=== PATIENT | female | born 1955 | race African-American/Black ===

== ENCOUNTER 2016-12-17 18:46 | Inpatient (IN) | payer MEDICARE, OTHER ==
[~2016-12-17] VITALS: Ht 175.3 cm; Wt 140.6 kg
[~2016-12-17 18:46] MED LIST: ACETAMINOPHEN-1 EAC2 ORAL; ACETAMINOPHEN325 M1 ORAL; ALBUTEROL2.5 MG/3 M INH; AMARYL4 MG ORAL; AMLODIPINE BESY10 MG ORAL; AMOXICILLIN500 MG ORAL; APRESOLINE10 MG ORAL; ASCORBIC ACID500 M4 ORAL; ASCORBIC ACID500 MG ORAL; ASPIRIN EC81 MG ORAL; ATORVASTATIN CA20 MG ORAL; BACTROBAN NASAL1 GM NASAL; CALCIUM ACETAT667 M1 PO; CATAPRES0.1 MG ORAL; DIALYVITE 8000.8 M1 PO; DIPHENHYDRAMINE25 M1 ORAL; DOK100 M1 PO; FERROUS SULFAT325 MG ORAL; FISH OIL CAP1000 MG ORAL; FLEET ENEMA133 ML RECTAL; FUROSEMIDE40 MG ORAL; GLIMEPIRIDE4 MG ORAL; HEPARIN SO5000 UNIT2 SUBQ; HYDRALAZINE HC100 MG ORAL; HYDRALAZINE HCL50 MG ORAL; IMDUR30 MG ORAL; IRON325 M2 PO; ISOSORBIDE DINIT5 MG ORAL; LACTULOSE20 GM/301 ORAL; LASIX20 M1 ORAL; LEVAQUIN250 M1 ORAL; LEVEMIR FL100 UNIT/1 SUBQ; LEVEMIR100 UNITS/ SUBQ; LISINOPRIL10 MG ORAL; LOPRESSOR25 M1 ORAL; LOSARTAN POTASS50 MG ORAL; METOLAZONE5 MG PO; METOPROLOL TART50 MG ORAL; MIRALAX17 G2 ORAL; MORPHINE 22 MG/1 ML IV; MYLANTA II30 ML PO; NITROSTAT0.4 M1 SL; NORCO 5-325 TA1 EACH ORAL; NOVOLIN R100 UNIT/1 SUBQ; NOVOLOG100 UNITS1 SUBQ; PANTOPRAZOLE SO40 MG ORAL; POTASSIUM CHLO20 ME3 PO; PROMETHAZINE-C118 M1 ORAL; RANITIDINE50 MG/2 ML IV; RENVELA800 MG ORAL; RESTORIL15 MG ORAL; TRAMADOL HCL50 MG ORAL; TYLENOL325 MG ORAL; TYLENOL650 MG/20. ORAL; ZOFRAN4 M1 ORAL; ZYLOPRIM100 MG ORAL; [UNRECOGNIZED DRUG - OTHER]
[2016-12-17 19:28] VITALS: BP 167/80
[2016-12-17] MEDS ORDERED: Morphine Sulfate 4mg/ml Inj IVP ONE (19:45)
[2016-12-17 19:58] LABS: APPEARANCE,URINE CLOUDY; KETONES,URINE NEGATIVE (NEGATIVE); LEUKOCYTE ESTERASE ,URINE 1+ (NEGATIVE); NITRITE,URINE NEGATIVE (NEGATIVE); PH,URINE 5 (4.5-8.0); PROTEIN,URINE 4+ (NEGATIVE); UROBILINOGEN,URINE NORMAL MG/DL (0.0-1.0)
[2016-12-17 20:20] LABS: SQUAMOUS EPITHELIAL CELL,UR MODERATE /LPF (NONE/OCC)
[2016-12-17 20:21] LABS: AMORPHOUS SEDIMENT,UR MANY /LPF; BACTERIA,URINE MODERATE /HPF; ICTOTEST NEGATIVE
[2016-12-17 20:54] VITALS: BP 152/60
[2016-12-17 20:59] LABS: BASOPHILS % (AUTO) 2.3 % (0.0-2.0); LYMPHOCYTES % (AUTO) 19.5 % (20.0-45.0); MEAN CORPUSCULAR HEMOGLOBIN 23.9 PG (27.0-31.0); MEAN CORPUSCULAR HGB CONC 28.8 G/DL (32.0-36.0); MEAN CORPUSCULAR VOLUME 83 FL (80-99); MEAN PLATELET VOLUME 6.3 FL (6.5-10.1); MONOCYTES % (AUTO) 12.7 % (1.0-10.0); NEUTROPHILS % (AUTO) 49.5 % (45.0-75.0); PLATELET COUNT 334 K/UL (150-450); RED BLOOD COUNT 4.74 M/UL (4.20-5.40); RED CELL DISTRIBUTION WIDTH 20.5 % (11.6-14.8); WHITE BLOOD COUNT 8.5 K/UL (4.8-10.8)
[2016-12-17 21:08] LABS: ALBUMIN/GLOBULIN RATIO 1.4 (1.0-2.7); CALCIUM 9.2 mg/dL (8.6-10.2); CREATININE 6.3 mg/dL (0.5-0.9); GLOMERULAR FILTRATION RATE 8.2 mL/min (>60); POTASSIUM 5.4 mEQ/L (3.4-4.9); TOTAL PROTEIN 7.3 g/dL (6.6-8.7); TROPONIN I < 0.30 ng/mL (<=0.30)
[2016-12-17 21:18] LABS: CKMB 2.5 ng/mL (< 3.8)
[2016-12-17] MEDS ORDERED: cefTRIAXone 1 GM in NS 55 ML IVPB ONE (21:30)
--- NOTE | 2016-12-17 22:22 | Emergency Room Report ---
History of Present Illness General Chief Complaint: Abdominal Pain Source: Patient, Medical Record Present Illness HPI 61-year-old female presents to ED for evaluation of abdominal pain. States symptoms started today. Notes suprapubic pain, 9/10 nonradiating. No aggravating or relieving factors. She states she has some dysuria. She has a bladder infection. Denies fevers or chills. Denies nausea or vomiting. Denies flank pain. Notes history of dialysis, gets dialysis on Sunday and Sunday. Denies chest pain or shortness of breath Allergies: Coded Allergies: NO KNOWN ALLERGIES (Unverified Allergy, Unknown, 10/15/15) Patient History Past Medical History: HTN, asthma, COPD, renal disease, dialysis Past Surgical History: none Pertinent Family History: none Social History: Denies: alcohol use, drug use, smoking Now: No Immunizations: UTD Reviewed Nursing Documentation: PMH: Agreed, PSxH: Agreed Nursing Documentation-PMH Past Medical History: No History, Except For Hx Hypertension: Yes Hx Asthma: Yes Hx COPD: Yes Hx Diabetes: Yes Hx Cancer: No Hx Gastrointestinal Problems: No Hx Dialysis: Yes - T TH Sat shunt on RUE Hx Neurological Problems: No Hx Peripheral Neuropathy: Yes - secondary to DM Hx Tremors: Yes Hx Vertigo: Yes Hx Dizziness: Yes Hx Syncope: Yes Hx Headaches: Yes Hx Weakness: Yes Hx Fatigue: Yes Review of Systems All Other Systems: negative except mentioned in HPI Physical Exam Vital Signs Date Time Temp Pulse Resp B/P Pulse Ox O2 Delivery O2 Flow Rate FiO2 12/17/16 19:06 97.3 64 20 178/79 100 Room Air Sp02 EP Interpretation: reviewed, normal General Appearance: no apparent distress, alert, GCS 15, non-toxic Head: normocephalic, atraumatic Eyes: bilateral eye PERRL, bilateral eye normal inspection ENT: hearing grossly normal, normal pharynx, no angioedema, normal voice Neck: full range of motion, supple/symm/no masses Respiratory: chest non-tender, lungs clear, normal breath sounds, speaking full sentences Cardiovascular #1: regular rate, rhythm, no edema Cardiovascular #2: 2+ carotid (R), 2+ carotid (L), 2+ radial (R), 2+ radial (L) , 2+ dorsalis pedis (R), 2+ dorsalis pedis (L) Gastrointestinal: normal bowel sounds, soft, non-distended, no guarding, no rebound, tenderness - suprapubic Rectal: deferred Genitourinary: normal inspection, no CVA tenderness Musculoskeletal: back normal, gait/station normal, normal range of motion, non- tender Neurologic: alert, oriented x3, responsive, motor strength/tone normal, sensory intact, speech normal Psychiatric: judgement/insight normal, memory normal, mood/affect normal, no suicidal/homicidal ideation Reflexes: 3+ bicep (R), 3+ bicep (L), 3+ tricep (R), 3+ tricep (L), 3+ knee (R) , 3+ knee (L) Skin: normal color, no rash, warm/dry, well hydrated Lymphatic: no adenopathy Medical Decision Making Diagnostic Impression: Primary Impression: Hyperkalemia Additional Impressions: ESRD (end stage renal disease) on dialysis UTI (urinary tract infection) Qualified Codes: N39.0 - Urinary tract infection, site not specified Uncontrolled diabetes mellitus Qualified Codes: E13.65 - Other specified diabetes mellitus with hyperglycemia ER Course Hospital Course 61-year-old female presents ED with suprapubic pain, history of UTI. History of end-stage renal disease Differential diagnoses include: Hyperkalemia, UTI, sepsis, dehydration Clinical course Patient placed on stretcher. 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 After initial history and physical, I ordered labs, EKG, UA. Labs - BUN/Cr elevated, potassium elevated, no leukocytosis, glucose greater than 300, UA grossly positive for UTI EKG - no ischemic changes Insulin given. kayexelate given Abx given. Case discussed with Dr Lan and they agreed to admit patient to their service for further care and support I feel this is a highly complex case requiring extensive working including EKG/ Rhythm strip, Xray/CT/US, Blood/urine lab work, repeat exams while in ED, and administration of strong opiates/narcotics for pain control, admission to hospital or close patient follow up. Diagnosis - hyperkalemia, ESRD on dialysis, UTI, uncontrolled DM Patient admitted to floor in serious condition Labs Test 12/17/16 19:25 12/17/16 20:30 Urine Color Margarita Urine Appearance Cloudy Urine pH 5 (4.5-8.0) Urine Specific [place] 1.015 (1.005-1.035) Urine Protein 4+ (NEGATIVE) Urine Glucose (UA) 2+ (NEGATIVE) Urine Ketones Negative (NEGATIVE) Urine Occult Blood 2+ (NEGATIVE) Urine Nitrite Negative (NEGATIVE) Urine Bilirubin Negative (NEGATIVE) Urine Ictotest Negative Urine Urobilinogen Normal MG/DL (0.0-1.0) Urine Leukocyte Esterase 1+ (NEGATIVE) Urine RBC 10-15 /HPF (0 - 2) Urine WBC 5-10 /HPF (0 - 2) Urine Squamous Epithelial Cells Moderate /LPF (NONE/OCC) Urine Amorphous Sediment Many /LPF (NONE) Urine Bacteria Moderate /HPF (NONE) White Blood Count 8.5 K/UL (4.8-10.8) Red Blood Count 4.74 M/UL (4.20-5.40) Hemoglobin 11.3 G/DL (12.0-16.0) Hematocrit 39.4 % (37.0-47.0) Mean Corpuscular Volume 83 FL (80-99) Mean Corpuscular Hemoglobin 23.9 PG (27.0-31.0) Mean Corpuscular Hemoglobin Concent 28.8 G/DL (32.0-36.0) Red Cell Distribution Width 20.5 % (11.6-14.8) Platelet Count 334 K/UL (150-450) Mean Platelet Volume 6.3 FL (6.5-10.1) Neutrophils (%) (Auto) 49.5 % (45.0-75.0) Lymphocytes (%) (Auto) 19.5 % (20.0-45.0) Monocytes (%) (Auto) 12.7 % (1.0-10.0) Eosinophils (%) (Auto) 16.0 % (0.0-3.0) Basophils (%) (Auto) 2.3 % (0.0-2.0) Sodium Level 132 mEQ/L (135-145) Potassium Level 5.4 mEQ/L (3.4-4.9) Chloride Level 93 mEQ/L (98-107) Carbon Dioxide Level 22 mEQ/L (20-30) Anion Gap 17 (5-15) Blood Urea Nitrogen 27 mg/dL (7-23) Creatinine 6.3 mg/dL (0.5-0.9) Estimat Glomerular Filtration Rate 8.2 mL/min (>60) Glucose Level 330 mg/dL (74-106) Calcium Level 9.2 mg/dL (8.6-10.2) Total Bilirubin 0.4 mg/dL (0.0-1.2) Aspartate Amino Transf (AST/SGOT) 11 U/L (5-40) Alanine Aminotransferase (ALT/SGPT) 10 U/L (3-33) Alkaline Phosphatase 72 U/L (35-104) Total Creatine Kinase 61 U/L (26-140) Creatine Kinase MB 2.5 ng/mL (< 3.8) Creatine Kinase MB Relative Index 4.0 Troponin I < 0.30 ng/mL (<=0.30) Pro-B-Type Natriuretic Peptide 5602 pg/mL (0-125) Total Protein 7.3 g/dL (6.6-8.7) Albumin 4.3 g/dL (3.5-5.2) Globulin 3.0 g/dL Albumin/Globulin Ratio 1.4 (1.0-2.7) EKG Diagnostic Results Rate: bradycardiac Rhythm: NSR ST Segments: no acute changes ASA given to the pt in ED: No Rhythm Strip Diag. Results EP Interpretation: yes Rhythm: no PVC's, no ectopy Last Vital Signs Date Time Temp Pulse Resp B/P Pulse Ox O2 Delivery O2 Flow Rate FiO2 12/17/16 20:54 97.2 63 18 152/60 100 Room Air Status: improved Disposition: ADMITTED INPATIENT Condition: Serious Referrals: BRIE LAN (PCP) MICA ZAMORA M.D. Dec 17, 2016 22:22
[2016-12-17] MEDS ORDERED: Sodium Polystyrene Sulfonate 15gm Powder ORAL ONE (22:30)
[2016-12-18] VITALS (7 sets, daily range): BP systolic 100–168; BP diastolic 57–85
[2016-12-18] MEDS ORDERED: Morphine Sulfate 2mg/ml Inj IVP PRN (01:00)
[2016-12-18] MEDS ORDERED: Zolpidem 5mg tab ORAL PRN (01:00)
[2016-12-18] MEDS ORDERED: Mylanta II UD 30ml ORAL PRN (01:00)
[2016-12-18] MEDS ORDERED: DuoNeb 0.5-3(2.5)mg/3ml neb HHN PRN (01:00)
[2016-12-18] MEDS: NovoLOG Insulin Flexpen SUBQ SCH ×4 (07:06→21:35)
[2016-12-18] MEDS: Metoprolol 50mg tab ORAL SCH ×2 (08:37→21:00)
[2016-12-18] MEDS: Allopurinol 100mg Tab ORAL SCH (08:37)
[2016-12-18] MEDS: HydrALAZINE 10mg Tab ORAL SCH ×4 (08:37→21:34)
--- NOTE | 2016-12-18 08:38 | Infectious Diseases Prog Note ---
Assessment/Plan Problems: (1) UTI (urinary tract infection) Assessment & Plan: send urine culture and continue levofloxacin (2) Diabetes Assessment & Plan: recommend tight glycemic controle to keep blood glucose between 80-120 (3) Hypertension Assessment & Plan: continue meds to keep SBP<140 (4) CHF (congestive heart failure) Assessment & Plan: on HD , renal is following (5) ESRD (end stage renal disease) on dialysis Assessment & Plan: management as per renal , continue HD (6) Vaginal yeast infection Assessment & Plan: will treat with a single dose of fluconazol 150 mg po x1 Subjective Allergies: Coded Allergies: NO KNOWN ALLERGIES (Unverified Allergy, Unknown, 10/15/15) Objective Vital Signs Last 24 Hour Vital Signs Date Time Temp Pulse Resp B/P Pulse Ox O2 Delivery O2 Flow Rate FiO2 12/18/16 03:30 97.5 61 19 168/82 99 Room Air 12/18/16 02:50 97.2 88 16 154/72 97 Room Air 12/18/16 02:25 97.2 88 16 154/72 97 Room Air 12/18/16 00:09 97.2 16 163/70 100 Room Air 12/17/16 23:49 163/70 12/17/16 21:15 97.2 12/17/16 20:54 97.2 63 18 152/60 100 Room Air 12/17/16 19:28 97.3 62 18 167/80 100 Room Air 12/17/16 19:06 97.3 64 20 178/79 100 Room Air Height (Feet): 5 Height (Inches): 9.00 Weight (Pounds): 310 Laboratory Tests Test 12/17/16 19:25 12/17/16 20:30 Urine Color Margarita Urine Appearance Cloudy Urine pH 5 (4.5-8.0) Urine Specific [place] 1.015 (1.005-1.035) Urine Protein 4+ (NEGATIVE) H Urine Glucose (UA) 2+ (NEGATIVE) H Urine Ketones Negative (NEGATIVE) Urine Occult Blood 2+ (NEGATIVE) H Urine Nitrite Negative (NEGATIVE) Urine Bilirubin Negative (NEGATIVE) Urine Ictotest Negative Urine Urobilinogen Normal MG/DL (0.0-1.0) Urine Leukocyte Esterase 1+ (NEGATIVE) H Urine RBC 10-15 /HPF (0 - 2) H Urine WBC 5-10 /HPF (0 - 2) H Urine Squamous Epithelial Cells Moderate /LPF (NONE/OCC) H Urine Amorphous Sediment Many /LPF (NONE) H Urine Bacteria Moderate /HPF (NONE) H White Blood Count 8.5 K/UL (4.8-10.8) Red Blood Count 4.74 M/UL (4.20-5.40) Hemoglobin 11.3 G/DL (12.0-16.0) L Hematocrit 39.4 % (37.0-47.0) Mean Corpuscular Volume 83 FL (80-99) Mean Corpuscular Hemoglobin 23.9 PG (27.0-31.0) L Mean Corpuscular Hemoglobin Concent 28.8 G/DL (32.0-36.0) L Red Cell Distribution Width 20.5 % (11.6-14.8) H Platelet Count 334 K/UL (150-450) Mean Platelet Volume 6.3 FL (6.5-10.1) L Neutrophils (%) (Auto) 49.5 % (45.0-75.0) Lymphocytes (%) (Auto) 19.5 % (20.0-45.0) L Monocytes (%) (Auto) 12.7 % (1.0-10.0) H Eosinophils (%) (Auto) 16.0 % (0.0-3.0) H Basophils (%) (Auto) 2.3 % (0.0-2.0) H Sodium Level 132 mEQ/L (135-145) L Potassium Level 5.4 mEQ/L (3.4-4.9) H Chloride Level 93 mEQ/L (98-107) L Carbon Dioxide Level 22 mEQ/L (20-30) Anion Gap 17 (5-15) H Blood Urea Nitrogen 27 mg/dL (7-23) H Creatinine 6.3 mg/dL (0.5-0.9) H Estimat Glomerular Filtration Rate 8.2 mL/min (>60) Glucose Level 330 mg/dL (74-106) H Calcium Level 9.2 mg/dL (8.6-10.2) Total Bilirubin 0.4 mg/dL (0.0-1.2) Aspartate Amino Transf (AST/SGOT) 11 U/L (5-40) Alanine Aminotransferase (ALT/SGPT) 10 U/L (3-33) Alkaline Phosphatase 72 U/L (35-104) Total Creatine Kinase 61 U/L (26-140) Creatine Kinase MB 2.5 ng/mL (< 3.8) Creatine Kinase MB Relative Index 4.0 Troponin I < 0.30 ng/mL (<=0.30) Pro-B-Type Natriuretic Peptide 5602 pg/mL (0-125) H Total Protein 7.3 g/dL (6.6-8.7) Albumin 4.3 g/dL (3.5-5.2) Globulin 3.0 g/dL Albumin/Globulin Ratio 1.4 (1.0-2.7) Current Medications Medications (Trade) Dose Ordered Sig/Josi Route PRN Reason Start Time Stop Time Status Last Admin Dose Admin Acetaminophen (Tylenol) 650 mg Q4H PRN ORAL fever 12/18/16 01:00 01/17/17 00:59 Al Hydroxide/Mg Hydroxide (Mylanta II) 30 ml Q6H PRN ORAL dyspepsia 12/18/16 01:00 01/17/17 00:59 Albuterol/ Ipratropium 3 ml 3 ml Q6HRT PRN HHN dyspnea 12/18/16 01:00 12/23/16 00:59 Allopurinol (Zyloprim) 100 mg DAILY ORAL 12/18/16 09:00 01/17/17 08:59 Amlodipine Besylate (Norvasc) 10 mg DAILY ORAL 12/18/16 09:00 01/17/17 08:59 Atorvastatin Calcium (Lipitor) 20 mg BEDTIME ORAL 12/18/16 21:00 01/17/17 20:59 Calcium Acetate (Phoslo) 667 mg TID ORAL 12/18/16 09:00 01/17/17 08:59 Clonidine HCl (Catapres) 0.1 mg EVERY 8 HOURS ORAL 12/18/16 09:00 01/17/17 08:59 Clonidine HCl (Catapres) 0.1 mg Q4H PRN ORAL For High Blood Pressure 12/18/16 01:00 01/17/17 00:59 Dextrose (Dextrose 50%) STAT PRN IV Hypoglycemia 12/18/16 01:00 01/17/17 00:59 Furosemide (Lasix) 100 mg EVERY 8 HOURS PRN IV dyspnea 12/18/16 01:00 01/17/17 00:59 Heparin Sodium (Porcine) (Heparin 5000 units/ml) 5,000 units EVERY 12 HOURS SUBQ 12/18/16 09:00 01/17/17 08:59 Hydralazine HCl (Apresoline) 10 mg EVERY 6 HOURS ORAL 12/18/16 08:00 01/17/17 07:59 Insulin Aspart (NovoLOG) BEFORE MEALS AND HS SUBQ 12/18/16 06:30 01/17/17 06:29 12/18/16 07:06 Levofloxacin (Levaquin) 50 ml @ 50 mls/hr Q48H IVPB 12/20/16 02:30 12/27/16 02:29 Metoprolol Tartrate (Lopressor) 50 mg Q12HR ORAL 12/18/16 09:00 01/17/17 08:59 Morphine Sulfate (Morphine Sulfate) 1 mg Q4H PRN IVP Moderate Pain (Pain Scale 4-6) 12/18/16 01:00 12/25/16 00:59 Morphine Sulfate (Morphine Sulfate) 2 mg Q4H PRN IV Severe Breakthru Pain (>7) 12/18/16 01:00 12/25/16 00:59 Ondansetron HCl (Zofran) 4 mg Q6H PRN IVP Nausea & Vomiting 12/18/16 01:00 01/17/17 00:59 Polyethylene Glycol (Miralax) 17 gm HSPRN PRN ORAL Constipation 12/18/16 01:00 01/17/17 00:59 Sevelamer Carbonate (Renvela) 800 mg THREE TIMES A DAY ORAL 12/18/16 09:00 01/17/17 08:59 Zolpidem Tartrate (Ambien) 5 mg HSPRN PRN ORAL Insomnia 12/18/16 01:00 01/17/17 00:59 Rudy Pendleton M.D. Dec 18, 2016 08:38
[2016-12-18] MEDS: Heparin 5000 units/ml inj SUBQ SCH ×2 (08:45→21:35)
[2016-12-18] MEDS: Calcium Acetate 667mg Tab ORAL SCH ×3 (08:51→17:35)
--- NOTE | 2016-12-18 15:18 | Nephrology Progress Note ---
Assessment/Plan Problem List: (1) Headache (2) Hyponatremia (3) Chest pain (4) CHF (congestive heart failure) (5) Hypertension (6) Morbid obesity (7) Blindness (8) Uncontrolled diabetes mellitus (9) End stage renal disease on dialysis (10) UTI (urinary tract infection) Plan Consult dictated - [id number] Subjective Constitutional: Denies: chills, diaphoresis, fever, malaise, no symptoms, other , weakness HEENT: Denies: blurred vision, double vision, ear discharge, ear pain, eye pain , mouth pain, mouth swelling, no symptoms, nose congestion, nose pain, other, tearing, throat pain, throat swelling Genitourinary: Reports: pain Neurologic/Psychiatric: Reports: weakness Subjective In bed, c/o gen itching Objective Objective Last 24 Hour Vital Signs Date Time Temp Pulse Resp B/P Pulse Ox O2 Delivery O2 Flow Rate FiO2 12/18/16 12:41 97.0 12/18/16 12:07 168/82 12/18/16 12:00 97.2 56 20 153/73 100 Room Air 12/18/16 08:37 61 168/82 12/18/16 08:37 168/82 12/18/16 08:37 168/82 12/18/16 08:37 61 168/82 12/18/16 08:00 97.0 63 22 153/75 97 Room Air 12/18/16 03:30 97.5 61 19 168/82 99 Room Air 12/18/16 02:50 97.2 88 16 154/72 97 Room Air 12/18/16 02:25 97.2 88 16 154/72 97 Room Air 12/18/16 00:09 97.2 16 163/70 100 Room Air 12/17/16 23:49 163/70 12/17/16 21:15 97.2 12/17/16 20:54 97.2 63 18 152/60 100 Room Air 12/17/16 19:28 97.3 62 18 167/80 100 Room Air 12/17/16 19:06 97.3 64 20 178/79 100 Room Air Intake and Output 12/17/16 12/18/16 19:00 07:00 Intake Total 155 ml Balance 155 ml Intake IV Total 155 ml # Voids 1 Laboratory Tests 12/17/16 19:25: Urine Color Margarita, Urine Appearance Cloudy, Urine pH 5, Urine Specific [place] 1.015, Urine Protein 4+H, Urine Glucose (UA) 2+H, Urine Ketones Negative, Urine Occult Blood 2+H, Urine Nitrite Negative, Urine Bilirubin Negative, Urine Ictotest Negative, Urine Urobilinogen Normal, Urine Leukocyte Esterase 1+H, Urine RBC 10-15H, Urine WBC 5-10H, Urine Squamous Epithelial Cells ModerateH, Urine Amorphous Sediment ManyH, Urine Bacteria ModerateH 12/17/16 20:30: White Blood Count 8.5, Red Blood Count 4.74, Hemoglobin 11.3L, Hematocrit 39.4, Mean Corpuscular Volume 83, Mean Corpuscular Hemoglobin 23.9L, Mean Corpuscular Hemoglobin Concent 28.8L, Red Cell Distribution Width 20.5H, Platelet Count 334 , Mean Platelet Volume 6.3L, Neutrophils (%) (Auto) 49.5, Lymphocytes (%) (Auto ) 19.5L, Monocytes (%) (Auto) 12.7H, Eosinophils (%) (Auto) 16.0H, Basophils (% ) (Auto) 2.3H, Sodium Level 132L, Potassium Level 5.4H, Chloride Level 93L, Carbon Dioxide Level 22, Anion Gap 17H, Blood Urea Nitrogen 27H, Creatinine 6.3H , Estimat Glomerular Filtration Rate 8.2, Glucose Level 330H, Calcium Level 9.2 , Total Bilirubin 0.4, Aspartate Amino Transf (AST/SGOT) 11, Alanine Aminotransferase (ALT/SGPT) 10, Alkaline Phosphatase 72, Total Creatine Kinase 61, Creatine Kinase MB 2.5, Creatine Kinase MB Relative Index 4.0, Troponin I < 0.30, Pro-B-Type Natriuretic Peptide 5602H, Total Protein 7.3, Albumin 4.3, Globulin 3.0, Albumin/Globulin Ratio 1.4 Height (Feet): 5 Height (Inches): 9.00 Weight (Pounds): 310 General Appearance: no apparent distress EENT: normal ENT inspection Neck: normal alignment Cardiovascular: normal rate, regular rhythm, no JVD Respiratory/Chest: normal breath sounds, no respiratory distress Abdomen: soft, no organomegaly, tender Extremities: normal range of motion, non-tender, normal inspection, no calf tenderness Neurologic: alert, oriented x 3, responsive, normal mood/affect Egwu,Kusum N.P. Dec 18, 2016 15:18
[2016-12-18] MEDS ORDERED: Fluconazole 100mg tab ORAL ONE (18:30)
--- NOTE | 2016-12-18 18:41 | Cardiac Electrophysiology PN ---
Subjective Subjective [id number] Objective Last 24 Hour Vital Signs Date Time Temp Pulse Resp B/P Pulse Ox O2 Delivery O2 Flow Rate FiO2 12/18/16 17:35 144/75 12/18/16 12:41 97.0 12/18/16 12:07 168/82 12/18/16 12:00 97.2 56 20 153/73 100 Room Air 12/18/16 08:37 61 168/82 12/18/16 08:37 168/82 12/18/16 08:37 168/82 12/18/16 08:37 61 168/82 12/18/16 08:00 97.0 63 22 153/75 97 Room Air 12/18/16 03:30 97.5 61 19 168/82 99 Room Air 12/18/16 02:50 97.2 88 16 154/72 97 Room Air 12/18/16 02:25 97.2 88 16 154/72 97 Room Air 12/18/16 00:09 97.2 16 163/70 100 Room Air 12/17/16 23:49 163/70 12/17/16 21:15 97.2 12/17/16 20:54 97.2 63 18 152/60 100 Room Air 12/17/16 19:28 97.3 62 18 167/80 100 Room Air 12/17/16 19:06 97.3 64 20 178/79 100 Room Air Intake and Output 12/17/16 12/18/16 19:00 07:00 Intake Total 155 ml Balance 155 ml Intake IV Total 155 ml # Voids 1 Laboratory Tests Test 12/17/16 19:25 12/17/16 20:30 Urine Color Margarita Urine Appearance Cloudy Urine pH 5 (4.5-8.0) Urine Specific [place] 1.015 (1.005-1.035) Urine Protein 4+ (NEGATIVE) H Urine Glucose (UA) 2+ (NEGATIVE) H Urine Ketones Negative (NEGATIVE) Urine Occult Blood 2+ (NEGATIVE) H Urine Nitrite Negative (NEGATIVE) Urine Bilirubin Negative (NEGATIVE) Urine Ictotest Negative Urine Urobilinogen Normal MG/DL (0.0-1.0) Urine Leukocyte Esterase 1+ (NEGATIVE) H Urine RBC 10-15 /HPF (0 - 2) H Urine WBC 5-10 /HPF (0 - 2) H Urine Squamous Epithelial Cells Moderate /LPF (NONE/OCC) H Urine Amorphous Sediment Many /LPF (NONE) H Urine Bacteria Moderate /HPF (NONE) H White Blood Count 8.5 K/UL (4.8-10.8) Red Blood Count 4.74 M/UL (4.20-5.40) Hemoglobin 11.3 G/DL (12.0-16.0) L Hematocrit 39.4 % (37.0-47.0) Mean Corpuscular Volume 83 FL (80-99) Mean Corpuscular Hemoglobin 23.9 PG (27.0-31.0) L Mean Corpuscular Hemoglobin Concent 28.8 G/DL (32.0-36.0) L Red Cell Distribution Width 20.5 % (11.6-14.8) H Platelet Count 334 K/UL (150-450) Mean Platelet Volume 6.3 FL (6.5-10.1) L Neutrophils (%) (Auto) 49.5 % (45.0-75.0) Lymphocytes (%) (Auto) 19.5 % (20.0-45.0) L Monocytes (%) (Auto) 12.7 % (1.0-10.0) H Eosinophils (%) (Auto) 16.0 % (0.0-3.0) H Basophils (%) (Auto) 2.3 % (0.0-2.0) H Sodium Level 132 mEQ/L (135-145) L Potassium Level 5.4 mEQ/L (3.4-4.9) H Chloride Level 93 mEQ/L (98-107) L Carbon Dioxide Level 22 mEQ/L (20-30) Anion Gap 17 (5-15) H Blood Urea Nitrogen 27 mg/dL (7-23) H Creatinine 6.3 mg/dL (0.5-0.9) H Estimat Glomerular Filtration Rate 8.2 mL/min (>60) Glucose Level 330 mg/dL (74-106) H Calcium Level 9.2 mg/dL (8.6-10.2) Total Bilirubin 0.4 mg/dL (0.0-1.2) Aspartate Amino Transf (AST/SGOT) 11 U/L (5-40) Alanine Aminotransferase (ALT/SGPT) 10 U/L (3-33) Alkaline Phosphatase 72 U/L (35-104) Total Creatine Kinase 61 U/L (26-140) Creatine Kinase MB 2.5 ng/mL (< 3.8) Creatine Kinase MB Relative Index 4.0 Troponin I < 0.30 ng/mL (<=0.30) Pro-B-Type Natriuretic Peptide 5602 pg/mL (0-125) H Total Protein 7.3 g/dL (6.6-8.7) Albumin 4.3 g/dL (3.5-5.2) Globulin 3.0 g/dL Albumin/Globulin Ratio 1.4 (1.0-2.7) ARNIE ALVARENGA Dec 18, 2016 18:41
--- NOTE | 2016-12-18 18:54 | Cardiology Report ---
APPROVED REPORT EKG Measurement Heart [id number] Sinus bradycardia with 1st degree AV block Low voltage QRS Possible Inferior infarct, age undetermined Cannot rule out Anterior infarct, age undetermined Abnormal ECG
[2016-12-18] MEDS: Miralax 17gm pkt ORAL PRN (20:21)
[2016-12-18] MEDS: DiphenhydrAMINE 50mg/ml Inj IVP PRN (20:22)
[2016-12-18 20:30] LABS: BASOPHILS % (AUTO) 1.9 % (0.0-2.0); EOSINOPHILS % (AUTO) 11.6 % (0.0-3.0); LYMPHOCYTES % (AUTO) 25.9 % (20.0-45.0); MEAN CORPUSCULAR HEMOGLOBIN 24.4 PG (27.0-31.0); MEAN CORPUSCULAR HGB CONC 29.2 G/DL (32.0-36.0); MEAN CORPUSCULAR VOLUME 84 FL (80-99); MEAN PLATELET VOLUME 7.4 FL (6.5-10.1); MONOCYTES % (AUTO) 12.7 % (1.0-10.0); NEUTROPHILS % (AUTO) 47.9 % (45.0-75.0); PLATELET COUNT 313 K/UL (150-450); RED BLOOD COUNT 4.69 M/UL (4.20-5.40); WHITE BLOOD COUNT 7.7 K/UL (4.8-10.8)
[2016-12-18 21:24] LABS: CALCIUM 9.5 mg/dL (8.6-10.2); CREATININE 7.5 mg/dL (0.5-0.9); GLOMERULAR FILTRATION RATE 6.8 mL/min (>60); POTASSIUM 5.2 mEQ/L (3.4-4.9)
[2016-12-18] MEDS: Atorvastatin 20mg tab ORAL SCH (21:31)
--- NOTE | 2016-12-18 22:17 | History and Physical Report ---
DATE OF ADMISSION: 12/17/2016 TIME SEEN: 2 p.m. CONSULTANTS: 1. Meghana Murillo M.D. 2. Demetris Squires M.D. 3. Rudy Pendleton M.D. 4. Shalom Vinson M.D. CHIEF COMPLAINT: Abdominal pain and dysuria. BRIEF HISTORY: The patient is a 61-year-old female from home, who presents with abdominal pain and dysuria for about a week and slightly nauseous, diagnosed with UTI and sepsis, and admitted to medical floor for further treatment. Currently, calm in bed, feeling a little bit better. No complaints otherwise. PAST MEDICAL HISTORY: Includes ESRD, diabetes, hypertension, obesity, and CHF. PAST SURGICAL HISTORY: Shunt and hysterectomy. MEDICATIONS: Include levofloxacin, Lipitor, Zyloprim, Norvasc, PhosLo, Catapres, Lopressor, and Renvela. I placed on NovoLog, morphine, Zolpidem, and Zofran. ALLERGIES: Denied. SOCIAL HISTORY: She does not smoke. No alcohol. No intravenous drug abuse. FAMILY HISTORY: Noncontributory. REVIEW OF SYSTEMS: No chest pain. Short of breath. Slightly nausea. No vomiting or diarrhea. PHYSICAL EXAMINATION: GENERAL: The patient is calm in bed, oriented x3, and in no acute distress. VITAL SIGNS: Show temperature is 97 degrees, pulse 86, respirations 20, and blood pressure 160/82. CARDIOVASCULAR: Distant without murmur. LUNGS: Poor exchange. ABDOMEN: Bowel sounds positive. Nontender and nondistended. EXTREMITIES: Show no cyanosis or clubbing. There is 1+ edema. NEUROLOGIC: The patient moves all extremities. Blindness noted as before. Slightly weak. LABORATORY DATA: Lab studies show hemoglobin 11.3, otherwise CBC is normal. BMP shows sodium 132, potassium 5.4, and chloride 93. BUN and creatinine 27 and 6.3. Glucose 330. Urinalysis is 2+ glucose and leukocyte esterase 1+. ASSESSMENT: 1. Urinary tract infection. 2. Sepsis. 3. Edema. 4. Abdominal pain. 5. Dysuria. 6. End-stage renal disease. 7. Anemia. 8. Diabetes. 9. Hypertension. 10. Obesity. 11. Congestive heart failure. 12. Hyperglycemia. PLAN: 1. Continue premedications. 2. OT, PT, and dietary evaluation. 3. Antibiotics per Infectious Disease. 4. Dialysis. 5. Blood pressure and blood sugar control. 6. Resume home medications. 7. CBC and BMP in the morning. 8. Dr. Murillo, Dr. Squires, Dr. Pendleton, Dr. Vinson, and to consult. Roderick Henning D.O. DR: TABBY JOB#: [id number] CC:
--- NOTE | 2016-12-18 23:05 | Consultation ---
History of Present Illness General Date patient seen: Dec 18, 2016 Chief Complaint: Dyspnea Referring physician: Dr. Henning Reason for Consultation: Dyspnea Present Illness HPI 61 yo gentleman with pmhx renal failure on HD< HTN, asthma, COPD with complaint of difficulty breathing, coughing with phlegm production and wheezing. Patient presenting to the emergency room with complaint of abdominal pain and difficulty breathing. Initial CXR reveals bilateral congestive changes consistent with edema. Patient is being provided with supplemental oxygen and breathing treatment as needed for shortness of breath. Renal evaluation to follow for possible ultrafiltration in context of probable fluid overload. Allergies: Coded Allergies: NO KNOWN ALLERGIES (Unverified Allergy, Unknown, 10/15/15) Medication History Scheduled Acetaminophen* (Acetaminophen 325MG Tablet*), 650 MG ORAL Q6H, (Reported) Al Hydroxide/mg Hydroxide (Mag-Al Plus Suspension), 30 ML PO Q6HR, (Reported) Allopurinol* (Zyloprim*), 100 MG ORAL DAILY, (Reported) Amlodipine Besylate* (Amlodipine Besylate*), 10 MG ORAL DAILY, (Reported) Ascorbic Acid* (Ascorbic Acid*), 500 MG ORAL DAILY, (Reported) Aspirin Ec* (Aspirin Ec*), 81 MG ORAL DAILY, (Reported) Atorvastatin Calcium* (Atorvastatin Calcium*), 20 MG ORAL BEDTIME, (Reported) Clonidine Hcl* (Catapres*), 0.1 MG ORAL EVERY 8 HOURS, (Reported) Docusate Sodium (Dok), 100 MG PO BID, (Reported) Ferrous Sulfate* (Ferrous Sulfate*), 325 MG ORAL DAILY, (Reported) Furosemide* (Lasix*), 20 MG ORAL DAILY, (Reported) Glimepiride* (Amaryl*), 4 MG ORAL BEFORE BREAKFAST Heparin Sod (Porcine) (Heparin Sodium*), 5,000 UNITS SUBQ EVERY 12 HOURS, ( Reported) Hydralazine HCl (Hydralazine HCl), 10 MG ORAL EVERY 6 HOURS, (Reported) Hydrocodone Bit/Acetaminophen 5-325* ([place] 5-325*), 1 TAB ORAL Q8HR, (Reported) Insulin Detemir (Levemir Flexpen), 10 UNITS SUBQ BEDTIME Isosorbide Dinitrate (Isosorbide Dinitrate*), 30 MG ORAL BID, (Reported) Levofloxacin* (Levaquin*), 250 MG ORAL DAILY, (Reported) Losartan Potassium* (Losartan Potassium*), 50 MG ORAL DAILY, (Reported) Metoprolol Tartrate* (Metoprolol Tartrate*), 50 MG ORAL EVERY 12 HOURS, ( Reported) Mupirocin Nasal (Bactroban Nasal), 1 APPLIC NASAL TID, (Reported) Pantoprazole* (Pantoprazole*), 40 MG ORAL DAILY, (Reported) Ranitidine Hcl* (Ranitidine Hcl*), 50 MG IV DAILY, (Reported) Sevelamer Carbonate (Renvela), 800 MG ORAL THREE TIMES A DAY, (Reported) Sevelamer Carbonate (Renvela), 800 MG ORAL THREE TIMES A DAY, (Reported) Scheduled PRN Acetaminophen (Tylenol), 650 MG ORAL Q4HR PRN for Mild Pain/Temp > 100.5, ( Reported) Albuterol Sulfate* (Albuterol Sulfate Hhn*), 3 ML INH Q6H PRN for Shortness of Breath, (Reported) Diphenhydramine Hcl* (Diphenhydramine Hcl*), 25 MG ORAL Q6H PRN for Itching, ( Reported) Insulin Regular, Human* (Novolin R*), 0 SUBQ AC+HS PRN for Sliding Scale, ( Reported) Morphine Sulfate* (Morphine Sulfate*), 2 MG IV Q4HR PRN for Severe Breakthru Pain (>7), (Reported) Na Phos,M-B/Na Phos,Di-Ba* (Fleet Enema*), 133 ML RECTAL DAILY PRN for Constipation, (Reported) Nitroglycerin (Nitrostat), 0.4 MG SL Q5M X3 DOSES PRN for CHEST PAIN, (Reported) Ondansetron (Zofran), 4 MG ORAL Q6H PRN for Nausea & Vomiting, (Reported) Polyethylene Glycol 3350* (Miralax*), 17 GM ORAL DAILY PRN for Constipation, ( Reported) Temazepam* (Restoril*), 15 MG ORAL BEDTIME PRN for Insomnia, (Reported) Temazepam* (Restoril*), 15 MG ORAL BEDTIME PRN for Insomnia, (Reported) Tramadol Hcl* (Ultram*), 50 MG ORAL Q6H PRN for For Pain, (Reported) Miscellaneous Medications Calcium Acetate (Calcium Acetate), 667 MG PO, (Reported) Folic Acid/Vitamin B Comp W-C (Dialyvite 800 Tablet), 0.8 MG PO, (Reported) Insulin Aspart (Novolog Flexpen), 6 SUBQ, (Reported) Lactulose (Lactulose*), 15 ML ORAL, (Reported) [Probiotic Digest ], (Reported) Patient History Healthcare decision maker Resuscitation status Full Code Advanced Directive on File Past Medical/Surgical History Past Medical/Surgical History: (1) Acute bronchitis (2) Myalgia (3) ACS (acute coronary syndrome) (4) Cough (5) Headache (6) Positive nasal culture for methicillin resistant Staphylococcus aureus (7) Leukocytosis (8) Shock (9) Uncontrolled diabetes mellitus (10) Dyspnea (11) History of colonic polyps (12) Chest pain (13) Hyperphosphatemia (14) CHF (congestive heart failure) (15) Respiratory failure (16) Hypertension (17) Anemia, chronic disease (18) Acute respiratory failure (19) CKD (chronic kidney disease) (20) Fluid overload, unspecified (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 (22) ESRD (end stage renal disease) on dialysis (23) CHF (congestive heart failure) Review of Systems Respiratory: Reports: GONSALEZ, cough, shortness of breath, sputum, wheezing Physical Exam General Appearance: confused, moderate distress Lines, tubes and drains: peripheral HEENT: normocephalic, atraumatic, anicteric, PERRL Neck: non-tender, normal alignment, supple Respiratory/Chest: chest wall non-tender, accessory muscle use, crackles/rales , rhonchi - bilaterally, expiratory wheezing Breasts: no masses Cardiovascular/Chest: normal peripheral pulses, normal rate, regular rhythm Abdomen: hypoactive bowel sounds, distended, guarding, rebound, tender Genitourinary/Rectal: normal genital exam, normal rectal exam Extremities: normal range of motion, non-tender, normal inspection Skin Exam: palled 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2 16 163/70 100 Room Air 12/17/16 23:49 163/70 Intake and Output 12/17/16 12/18/16 19:00 07:00 Intake Total 155 ml Balance 155 ml Intake IV Total 155 ml # Voids 1 Laboratory Tests Test 12/18/16 20:14 White Blood Count 7.7 K/UL (4.8-10.8) Red Blood Count 4.69 M/UL (4.20-5.40) Hemoglobin 11.5 G/DL (12.0-16.0) L Hematocrit 39.3 % (37.0-47.0) Mean Corpuscular Volume 84 FL (80-99) Mean Corpuscular Hemoglobin 24.4 PG (27.0-31.0) L Mean Corpuscular Hemoglobin Concent 29.2 G/DL (32.0-36.0) L Red Cell Distribution Width 20.0 % (11.6-14.8) H Platelet Count 313 K/UL (150-450) Mean Platelet Volume 7.4 FL (6.5-10.1) Neutrophils (%) (Auto) 47.9 % (45.0-75.0) Lymphocytes (%) (Auto) 25.9 % (20.0-45.0) Monocytes (%) (Auto) 12.7 % (1.0-10.0) H Eosinophils (%) (Auto) 11.6 % (0.0-3.0) H Basophils (%) (Auto) 1.9 % (0.0-2.0) Sodium Level 135 mEQ/L (135-145) Potassium Level 5.2 mEQ/L (3.4-4.9) H Chloride Level 93 mEQ/L (98-107) L Carbon Dioxide Level 25 mEQ/L (20-30) Anion Gap 17 (5-15) H Blood Urea Nitrogen 35 mg/dL (7-23) H Creatinine 7.5 mg/dL (0.5-0.9) H Estimat Glomerular Filtration Rate 6.8 mL/min (>60) Glucose Level 204 mg/dL (74-106) #H Calcium Level 9.5 mg/dL (8.6-10.2) Height (Feet): 5 Height (Inches): 9.00 Weight (Pounds): 310 Medications Current Medications Medications (Trade) Dose Ordered Sig/Josi Route PRN Reason Start Time Stop Time Status Last Admin Dose Admin Acetaminophen (Tylenol) 650 mg Q4H PRN ORAL fever 12/18/16 01:00 01/17/17 00:59 Al Hydroxide/Mg Hydroxide (Mylanta II) 30 ml Q6H PRN ORAL dyspepsia 12/18/16 01:00 01/17/17 00:59 Albuterol/ Ipratropium 3 ml 3 ml Q6HRT PRN HHN dyspnea 12/18/16 01:00 12/23/16 00:59 Allopurinol (Zyloprim) 100 mg DAILY ORAL 12/18/16 09:00 01/17/17 08:59 12/18/16 08:37 Amlodipine Besylate (Norvasc) 10 mg DAILY ORAL 12/18/16 09:00 01/17/17 08:59 12/18/16 08:37 Atorvastatin Calcium (Lipitor) 20 mg BEDTIME ORAL 12/18/16 21:00 01/17/17 20:59 12/18/16 21:31 Calcium Acetate (Phoslo) 667 mg TID ORAL 12/18/16 09:00 01/17/17 08:59 12/18/16 17:35 Clonidine HCl (Catapres) 0.1 mg EVERY 8 HOURS ORAL 12/18/16 09:00 01/17/17 08:59 12/18/16 22:49 Clonidine HCl (Catapres) 0.1 mg Q4H PRN ORAL For High Blood Pressure 12/18/16 01:00 01/17/17 00:59 Dextrose (Dextrose 50%) STAT PRN IV Hypoglycemia 12/18/16 01:00 01/17/17 00:59 Diphenhydramine HCl (Benadryl) 25 mg Q6H PRN IVP Itching 12/18/16 15:45 01/17/17 15:44 12/18/16 20:22 Furosemide (Lasix) 100 mg EVERY 8 HOURS PRN IV dyspnea 12/18/16 01:00 01/17/17 00:59 Heparin Sodium (Porcine) (Heparin 5000 units/ml) 5,000 units EVERY 12 HOURS SUBQ 12/18/16 09:00 01/17/17 08:59 12/18/16 21:35 Hydralazine HCl (Apresoline) 50 mg Q12HR ORAL 12/18/16 21:00 01/17/17 20:59 12/18/16 21:34 Insulin Aspart (NovoLOG) BEFORE MEALS AND HS SUBQ 12/18/16 06:30 01/17/17 06:29 12/18/16 21:35 Levofloxacin (Levaquin) 50 ml @ 50 mls/hr Q48H IVPB 12/20/16 02:30 12/27/16 02:29 Metoprolol Tartrate (Lopressor) 50 mg Q12HR ORAL 12/18/16 09:00 01/17/17 08:59 12/18/16 08:37 Morphine Sulfate (Morphine Sulfate) 1 mg Q4H PRN IVP Moderate Pain (Pain Scale 4-6) 12/18/16 01:00 12/25/16 00:59 12/18/16 12:11 Morphine Sulfate (Morphine Sulfate) 2 mg Q4H PRN IV Severe Breakthru Pain (>7) 12/18/16 01:00 12/25/16 00:59 Ondansetron HCl (Zofran) 4 mg Q6H PRN IVP Nausea & Vomiting 12/18/16 01:00 01/17/17 00:59 12/18/16 08:51 Polyethylene Glycol (Miralax) 17 gm HSPRN PRN ORAL Constipation 12/18/16 01:00 01/17/17 00:59 12/18/16 20:21 Sevelamer Carbonate (Renvela) 800 mg THREE TIMES A DAY ORAL 12/18/16 09:00 01/17/17 08:59 12/18/16 17:35 Zolpidem Tartrate (Ambien) 5 mg HSPRN PRN ORAL Insomnia 12/18/16 01:00 01/17/17 00:59 Assessment/Plan Status: stable, progressing Assessment/Plan ASSESSMENT: Bilateral Pnuemonia? Pulmonary Edema secondary to fluid overload Urinary tract infection. Sepsis. Edema. Abdominal pain. Dysuria. End-stage renal disease. Anemia. Diabetes. Hypertension. Obesity. Congestive heart failure. Hyperglycemia. 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 and BATTERY CONTAINER TESTER ALUMINUM Pulmonary hygeine Suction often CXR examined Renal to adjust ultrafiltration JONES BARAKAT Dec 18, 2016 23:05
--- NOTE | 2016-12-18 23:27 | Consultation ---
DATE OF CONSULTATION: INFECTIOUS DISEASE CONSULTATION CONSULTING PHYSICIAN: Rudy Pendleton M.D. REQUESTING PHYSICIAN: Roderick Henning D.O. REASON FOR CONSULTATION: Urinary tract infection. Recommendation for antibiotics therapy. HISTORY OF PRESENT ILLNESS: The patient is a 61-year-old female with end-stage renal disease, on hemodialysis Sunday, , and Sunday, presented to the emergency room with progressive suprapubic pain and dysuria, which started yesterday. The patient had home health visiting nurse, who checked her laboratories and urine and was found to have evidence of urinary tract infection. She developed abdominal pain, mainly in the suprapubic area and dysuria. Since she is still making some urine, she was concerned about her findings, refused to be treated at home with oral antibiotics, and decided to come into the emergency room for further evaluation and management. The patient's temperature was 97.3 degrees and saturating 100% on room air. Urinalysis showed significant infection. The patient received antibiotics in the emergency room and I was consulted by the primary provider for antibiotics recommendation and treatment. PAST MEDICAL HISTORY: Significant for hypertension, asthma, chronic obstructive pulmonary disease, and end-stage renal disease, on hemodialysis. PAST SURGICAL HISTORY: Negative. MEDICATIONS: She is on levofloxacin. For the rest of her medications, please refer to the MAR. ALLERGIES: She has no known drug allergy. SOCIAL HISTORY: She lives at home. Legally blind. Unemployed. Denied using any drugs, tobacco, or alcohol. FAMILY HISTORY: Negative for recurrent infection or immunocompromised condition. REVIEW OF SYSTEMS: A 14-point system reviewed were all negative except the one I mentioned above in my History and Physical. PHYSICAL EXAMINATION: VITAL SIGNS: Temperature 97.2 degrees, pulse 56, respirations 20, blood pressure 153/73, and pulse oximetry 100% on room air. GENERAL: Morbidly obese female, legally blind, sitting in bed, awake, alert, and not in distress. HEENT: Normocephalic and atraumatic. Pupils are not reactive to light. The patient is legally blind. Moist oral mucosa. No exudate. NECK: Supple. No lymphadenopathy. CARDIOVASCULAR: Regular rate and rhythm. No murmur or gallop. LUNGS: Clear bilaterally. No wheezing or rhonchi. ABDOMEN: Soft, obese, nontender, and nondistended. Positive bowel sounds. No hepatosplenomegaly or ascites. EXTREMITIES: No edema. No cyanosis. LABORATORY DATA: Labs showed white count of 8.5, hemoglobin of 11.3, and platelet of 334,000. BUN of 27 and creatinine of 6.3. AST of 11 and ALT of 10. Urinalysis showed +1 leukocyte esterase, 10 to 15 red blood cells, 5 to 10 WBCs, and moderate amount of bacteria. IMAGING: None done so far. ASSESSMENT AND PLAN: 1. Urinary tract infection. We will send urine for culture. Continue levofloxacin empiric treatment. 2. Possible vaginal yeast infection with discharge. We will treat with oral dose of fluconazole 150 mg x1. 3. Diabetes. Recommend tight glycemic control to keep blood glucose between 80 to 120. 4. Hypertension. Continue oral medications to keep systolic less than 140. 5. Congestive heart failure. The patient is on hemodialysis. Renal is following. 6. End-stage renal disease, on hemodialysis. Continue management as per renal service. Rudy Pendleton M.D. DR: SAMMIE JOB#: [id number] CC:
[2016-12-19] VITALS: BP 117/65
--- NOTE | 2016-12-19 02:57 | Consultation ---
DATE OF CONSULTATION: 12/18/2016 CARDIOLOGY CONSULTATION REFERRING PHYSICIAN: Roderick Henning D.O. REASON FOR CONSULTATION: Congestive heart failure. HISTORY OF PRESENT ILLNESS: The patient is a 61-year-old lady with a history of morbid obesity, hypertension, congestive heart failure with diastolic dysfunction, and end-stage renal disease on hemodialysis, who presents to the emergency room with shortness of breath and weakness. The patient was found to have urinary tract infection and was started on IV antibiotic per Dr. Pendleton with Levaquin. Cardiology consultation was obtained for management of hypertension and congestive heart failure. REVIEW OF SYSTEMS: Review of systems was thoroughly performed and was negative other than what was mentioned in the history of present illness. PAST MEDICAL HISTORY: 1. Hypertension. 2. Congestive heart failure with diastolic dysfunction. 3. End-stage renal disease, on hemodialysis. 4. Morbid obesity. 5. Bilateral blindness. FAMILY HISTORY: Noncontributory. SOCIAL HISTORY: Does not smoke or drink alcohol. PHYSICAL EXAMINATION: VITAL SIGNS: Blood pressure is 162/82, currently 144/75, pulse 90, respirations 18, and she is afebrile. HEAD AND NECK: Shows mild JVD. LUNGS: Decreased breath sounds. CARDIOVASCULAR: Shows distant heart sounds without murmur, gallop, or murmur. ABDOMEN: Morbidly obese. EXTREMITIES: 1+ pitting edema. LABORATORY DATA: White blood cell count of 8.5, hemoglobin 11.2, hematocrit of 39.5, and platelet of 234,000. Sodium 133, potassium 5.4, hematocrit of 27, creatinine 6.3. Troponins negative. BNP is 5602. PLAN: 1. Shortness of breath secondary to volume overload in a patient with dialysis. The patient will be given dialysis by Dr. Squires. 2. The patient has hypertension, on antihypertensive agents. 3. The patient has hypertensive heart disease. Continue Norvasc 10 mg daily, metoprolol 50 mg b.i.d. I will increase her hydralazine from 10 mg q.6 hours to 15 mg b.i.d. 4. End-stage renal disease, on hemodialysis. 5. Chronic obstructive pulmonary disease. 6. Urinary tract infection. 7. Diabetes. Thank you very much, Dr. Henning for allowing me to participate in the care of this patient. Please do not hesitate to contact for any questions regarding my evaluation. Shalom Vinson M.D. DR: CARLOS JOB#: [id number] CC:
[2016-12-19 04:00] VITALS: BP 112/69
[2016-12-19] MEDS: Morphine Sulfate 2mg/ml Inj IV PRN ×2 (05:42→13:10)
[2016-12-19] MEDS: NovoLOG Insulin Flexpen SUBQ SCH ×4 (06:00→20:26)
[2016-12-19 08:15] VITALS: BP 188/90
[2016-12-19] MEDS: Calcium Acetate 667mg Tab ORAL SCH ×3 (08:34→17:31)
[2016-12-19] MEDS: DiphenhydrAMINE 50mg/ml Inj IVP PRN (08:35)
[2016-12-19] MEDS: HydrALAZINE 10mg Tab ORAL SCH (08:35)
[2016-12-19] MEDS: Allopurinol 100mg Tab ORAL SCH (08:35)
[2016-12-19] MEDS: Metoprolol 50mg tab ORAL SCH ×2 (08:35→20:27)
[2016-12-19] MEDS: Heparin 5000 units/ml inj SUBQ SCH ×2 (08:40→20:26)
[2016-12-19] MEDS: Levemir Flexpen SUBQ SCH (10:36)
[2016-12-19 11:42] VITALS: BP 161/85
--- NOTE | 2016-12-19 12:47 | Consultation ---
DATE OF CONSULTATION: NOTE: POOR AUDIO QUALITY ENDOCRINOLOGY CONSULTATION: REFERRING PHYSICIAN: Roderick Henning D.O. CONSULTING PHYSICIAN:: Ronen Bejarano M.D. REASON FOR CONSULTATION: Continue on . UTI. She UTI. antibiotics. She has been receiving nightly 7.8. PAST MEDICAL HISTORY: Negative. FAMILY HISTORY: Negative. PHYSICAL EXAMINATION: GENERAL: The patient is in no acute distress. VITAL SIGNS: Blood pressure , temperature LABORATORY DATA: Glucose 203 and creatinine 7.8. Ronen Bejarano M.D. DR: Terrell JOB#: [id number] CC:
[2016-12-19 13:59] LABS: BASOPHILS % (AUTO) 1.7 % (0.0-2.0); EOSINOPHILS % (AUTO) 11.4 % (0.0-3.0); LYMPHOCYTES % (AUTO) 26.6 % (20.0-45.0); MEAN CORPUSCULAR HEMOGLOBIN 24.1 PG (27.0-31.0); MEAN CORPUSCULAR HGB CONC 28.7 G/DL (32.0-36.0); MEAN CORPUSCULAR VOLUME 84 FL (80-99); MEAN PLATELET VOLUME 6.7 FL (6.5-10.1); MONOCYTES % (AUTO) 11.2 % (1.0-10.0); NEUTROPHILS % (AUTO) 49.1 % (45.0-75.0); PLATELET COUNT 284 K/UL (150-450); RED BLOOD COUNT 4.44 M/UL (4.20-5.40); RED CELL DISTRIBUTION WIDTH 20.2 % (11.6-14.8); WHITE BLOOD COUNT 7.3 K/UL (4.8-10.8)
[2016-12-19 14:19] LABS: ALBUMIN/GLOBULIN RATIO 1.4 (1.0-2.7); CHOLESTEROL/HDL RATIO 4.2 (3.3-4.4); CREATININE 8.6 mg/dL (0.5-0.9); GLOMERULAR FILTRATION RATE 5.7 mL/min (>60); POTASSIUM 5.9 mEQ/L (3.4-4.9); THYROID STIMULATING HORMONE 1.12 uIU/mL (0.300-4.500); TOTAL PROTEIN 7.2 g/dL (6.6-8.7)
--- NOTE | 2016-12-19 15:13 | General Progress Note ---
Assessment/Plan Problem List: (1) Anemia ICD Codes: D64.9 - Anemia, unspecified SNOMED: 749562211 (2) Hypertension ICD Codes: I10 - Hypertension SNOMED: 56196292 (3) Morbid obesity ICD Codes: E66.01 - Morbid obesity SNOMED: 203339774 (4) Constipation ICD Codes: K59.00 - Constipation, unspecified SNOMED: 87712800 (5) CHF (congestive heart failure) ICD Codes: I50.9 - Heart failure, unspecified SNOMED: 25730522 (6) CKD (chronic kidney disease) ICD Codes: N18.9 - CKD (chronic kidney disease) SNOMED: 986535517 (7) Blindness of both eyes ICD Codes: H54.0 - Blindness SNOMED: 809569325 (8) Sepsis ICD Codes: A41.9 - Sepsis, unspecified organism SNOMED: 44180536 (9) Diabetes ICD Codes: E11.9 - Type 2 diabetes mellitus without complications SNOMED: 33481198 (10) ESRD (end stage renal disease) on dialysis ICD Codes: N18.6 - End stage renal failure on dialysis; Z99.2 - Dependence on renal dialysis SNOMED: 776117436 (11) Hyperkalemia ICD Codes: E87.5 - Hyperkalemia SNOMED: 30947982 Status: stable, progressing, tolerating diet Assessment/Plan ot pt diet abx dialysis cbc bmp am Subjective Constitutional: Reports: weakness Gastrointestinal/Abdominal: Reports: abdominal pain, nausea Allergies: Coded Allergies: NO KNOWN ALLERGIES (Unverified Allergy, Unknown, 10/15/15) All Systems: reviewed and negative except above Objective Last 24 Hour Vital Signs Date Time Temp Pulse Resp B/P Pulse Ox O2 Delivery O2 Flow Rate FiO2 12/19/16 13:40 97.6 12/19/16 13:09 161/85 12/19/16 11:42 97.6 62 18 161/85 98 Room Air 12/19/16 08:35 188/90 12/19/16 08:35 68 188/90 12/19/16 08:34 68 188/90 12/19/16 08:15 97.3 68 20 188/90 94 Room Air 12/19/16 06:00 110/63 12/19/16 04:00 96.9 62 19 112/69 98 Room Air 12/19/16 00:00 96.8 61 19 117/65 97 Room Air 12/18/16 22:49 157/69 12/18/16 21:34 159/78 12/18/16 21:00 59 159/78 12/18/16 20:00 98.1 64 20 100/57 100 Room Air 12/18/16 17:35 144/75 12/18/16 16:00 97.5 80 20 168/85 100 Room Air Intake and Output 12/18/16 12/19/16 19:00 07:00 Intake Total 380 ml Balance 380 ml Intake Oral 380 ml # Voids 2 1 Laboratory Tests 12/18/16 20:14: White Blood Count 7.7, Red Blood Count 4.69, Hemoglobin 11.5L, Hematocrit 39.3, Mean Corpuscular Volume 84, Mean Corpuscular Hemoglobin 24.4L, Mean Corpuscular Hemoglobin Concent 29.2L, Red Cell Distribution Width 20.0H, Platelet Count 313 , Mean Platelet Volume 7.4, Neutrophils (%) (Auto) 47.9, Lymphocytes (%) (Auto) 25.9, Monocytes (%) (Auto) 12.7H, Eosinophils (%) (Auto) 11.6H, Basophils (%) ( Auto) 1.9, Sodium Level 135, Potassium Level 5.2H, Chloride Level 93L, Carbon Dioxide Level 25, Anion Gap 17H, Blood Urea Nitrogen 35H, Creatinine 7.5H, Estimat Glomerular Filtration Rate 6.8, Glucose Level 204#H, Calcium Level 9.5 12/19/16 13:30: White Blood Count 7.3, Red Blood Count 4.44, Hemoglobin 10.7L, Hematocrit 37.3, Mean Corpuscular Volume 84, Mean Corpuscular Hemoglobin 24.1L, Mean Corpuscular Hemoglobin Concent 28.7L, Red Cell Distribution Width 20.2H, Platelet Count 284 , Mean Platelet Volume 6.7, Neutrophils (%) (Auto) 49.1, Lymphocytes (%) (Auto) 26.6, Monocytes (%) (Auto) 11.2H, Eosinophils (%) (Auto) 11.4H, Basophils (%) ( Auto) 1.7, Sodium Level 135, Potassium Level 5.9H, Chloride Level 93L, Carbon Dioxide Level 25, Anion Gap 17H, Blood Urea Nitrogen 42H, Creatinine 8.6H, Estimat Glomerular Filtration Rate 5.7, Glucose Level 265H, Calcium Level 10.0, Hemoglobin A1c 8.0H, Total Bilirubin 0.4, Aspartate Amino Transf (AST/SGOT) 10, Alanine Aminotransferase (ALT/SGPT) 9, Alkaline Phosphatase 68, Total Protein 7.2, Albumin 4.3, Globulin 2.9, Albumin/Globulin Ratio 1.4, Triglycerides Level 232H, Cholesterol Level 125, LDL Cholesterol 49L, HDL Cholesterol 30, Cholesterol/HDL Ratio 4.2, Thyroid Stimulating Hormone (TSH) 1.120 Height (Feet): 5 Height (Inches): 9.00 Weight (Pounds): 310 General Appearance: lethargic EENT: normal ENT inspection Neck: normal alignment Cardiovascular: normal peripheral pulses, normal rate, regular rhythm Respiratory/Chest: chest wall non-tender, lungs clear, normal breath sounds Abdomen: normal bowel sounds, non tender, soft Extremities: normal inspection Edema: no edema noted Arm (L), no edema noted Arm (R), no edema noted Leg (L), no edema noted Leg (R), no edema noted Pedal (L), no edema noted Pedal (R), no edema noted Generalized Neurologic: responsive, motor weakness Skin: normal pigmentation, warm/dry BRIE LAN Dec 19, 2016 15:13
[2016-12-19 16:10] VITALS: BP 148/59
--- NOTE | 2016-12-19 16:21 | Cardiac Electrophysiology PN ---
Assessment/Plan Assessment/Plan 1. Shortness of breath secondary to volume overload in a patient with dialysis. Dialysis by Dr. Squires. 2. Hypertensive heart disease. Continue Norvasc 10 mg daily, metoprolol 50 mg b.i.d. and hydralazine 50 mg b.i.d. 3. Diabetes 4. End-stage renal disease, on hemodialysis. 5. Chronic obstructive pulmonary disease. 6. Urinary tract infection. . Subjective Subjective Sleepy in NAD. RN at bedside.Off tele. Objective Last 24 Hour Vital Signs Date Time Temp Pulse Resp B/P Pulse Ox O2 Delivery O2 Flow Rate FiO2 12/19/16 16:10 97.3 58 18 148/59 97 Room Air 12/19/16 13:40 97.6 12/19/16 13:09 161/85 12/19/16 11:42 97.6 62 18 161/85 98 Room Air 12/19/16 08:35 188/90 12/19/16 08:35 68 188/90 12/19/16 08:34 68 188/90 12/19/16 08:15 97.3 68 20 188/90 94 Room Air 12/19/16 06:00 110/63 12/19/16 04:00 96.9 62 19 112/69 98 Room Air 12/19/16 00:00 96.8 61 19 117/65 97 Room Air 12/18/16 22:49 157/69 12/18/16 21:34 159/78 12/18/16 21:00 59 159/78 12/18/16 20:00 98.1 64 20 100/57 100 Room Air 12/18/16 17:35 144/75 Intake and Output 12/18/16 12/19/16 19:00 07:00 Intake Total 380 ml Balance 380 ml Intake Oral 380 ml # Voids 2 1 Laboratory Tests Test 12/18/16 20:14 12/19/16 13:30 White Blood Count 7.7 K/UL (4.8-10.8) 7.3 K/UL (4.8-10.8) Red Blood Count 4.69 M/UL (4.20-5.40) 4.44 M/UL (4.20-5.40) Hemoglobin 11.5 G/DL (12.0-16.0) L 10.7 G/DL (12.0-16.0) L Hematocrit 39.3 % (37.0-47.0) 37.3 % (37.0-47.0) Mean Corpuscular Volume 84 FL (80-99) 84 FL (80-99) Mean Corpuscular Hemoglobin 24.4 PG (27.0-31.0) L 24.1 PG (27.0-31.0) L Mean Corpuscular Hemoglobin Concent 29.2 G/DL (32.0-36.0) L 28.7 G/DL (32.0-36.0) L Red Cell Distribution Width 20.0 % (11.6-14.8) H 20.2 % (11.6-14.8) H Platelet Count 313 K/UL (150-450) 284 K/UL (150-450) Mean Platelet Volume 7.4 FL (6.5-10.1) 6.7 FL (6.5-10.1) Neutrophils (%) (Auto) 47.9 % (45.0-75.0) 49.1 % (45.0-75.0) Lymphocytes (%) (Auto) 25.9 % (20.0-45.0) 26.6 % (20.0-45.0) Monocytes (%) (Auto) 12.7 % (1.0-10.0) H 11.2 % (1.0-10.0) H Eosinophils (%) (Auto) 11.6 % (0.0-3.0) H 11.4 % (0.0-3.0) H Basophils (%) (Auto) 1.9 % (0.0-2.0) 1.7 % (0.0-2.0) Sodium Level 135 mEQ/L (135-145) 135 mEQ/L (135-145) Potassium Level 5.2 mEQ/L (3.4-4.9) H 5.9 mEQ/L (3.4-4.9) H Chloride Level 93 mEQ/L (98-107) L 93 mEQ/L (98-107) L Carbon Dioxide Level 25 mEQ/L (20-30) 25 mEQ/L (20-30) Anion Gap 17 (5-15) H 17 (5-15) H Blood Urea Nitrogen 35 mg/dL (7-23) H 42 mg/dL (7-23) H Creatinine 7.5 mg/dL (0.5-0.9) H 8.6 mg/dL (0.5-0.9) H Estimat Glomerular Filtration Rate 6.8 mL/min (>60) 5.7 mL/min (>60) Glucose Level 204 mg/dL (74-106) #H 265 mg/dL (74-106) H Calcium Level 9.5 mg/dL (8.6-10.2) 10.0 mg/dL (8.6-10.2) Hemoglobin A1c 8.0 % (< 6.0) H Total Bilirubin 0.4 mg/dL (0.0-1.2) Aspartate Amino Transf (AST/SGOT) 10 U/L (5-40) Alanine Aminotransferase (ALT/SGPT) 9 U/L (3-33) Alkaline Phosphatase 68 U/L (35-104) Total Protein 7.2 g/dL (6.6-8.7) Albumin 4.3 g/dL (3.5-5.2) Globulin 2.9 g/dL Albumin/Globulin Ratio 1.4 (1.0-2.7) Triglycerides Level 232 mg/dL (< 150) H Cholesterol Level 125 mg/dL (< 200) LDL Cholesterol 49 mg/dL (60-99) L HDL Cholesterol 30 mg/dL (> 60) Cholesterol/HDL Ratio 4.2 (3.3-4.4) Thyroid Stimulating Hormone (TSH) 1.120 uIU/mL (0.300-4.500) Microbiology Date/Time Source Procedure Growth Status 12/17/16 19:25 Urine,Clean Catch Urine Culture - Preliminary NO GROWTH AFTER 24 HOURS Resulted Objective HEAD AND NECK: Shows mild JVD. LUNGS: Decreased breath sounds. CARDIOVASCULAR: Shows distant heart sounds without murmur, gallop, or murmur. ABDOMEN: Morbidly obese. EXTREMITIES: 1+ pitting edema. ARNIE ALVARENGA Dec 19, 2016 16:21
--- NOTE | 2016-12-19 17:23 | Infectious Diseases Prog Note ---
Assessment/Plan Problems: (1) UTI (urinary tract infection) Assessment & Plan: await urine culture and continue levofloxacin (2) Diabetes Assessment & Plan: recommend tight glycemic controle to keep blood glucose between 80-120 (3) Hypertension Assessment & Plan: continue meds to keep SBP<140 (4) CHF (congestive heart failure) Assessment & Plan: on HD , renal is following (5) ESRD (end stage renal disease) on dialysis Assessment & Plan: management as per renal , continue HD (6) Vaginal yeast infection Assessment & Plan: received single dose of fluconazol 150 mg po x1 Subjective Constitutional: Denies: anorexia, chills, drenching sweats, fatigue, fever, no symptoms, other HEENT: Denies: congestion, coryza, dysphagia, hearing change, no symptoms, other, visual change Respiratory: Denies: dry cough, no symptoms, other, productive cough, shortness of breath Breasts: Denies: discharge, no symptoms, other, swelling, tenderness Cardiovascular: Denies: chest pain, dyspnea on exertion, no symptoms, other, palpitations Gastrointestinal/Abdominal: Denies: bloating, blood in stool, constipation, diarrhea, nausea, no symptoms, other, vomiting Genitourinary: Denies: dysuria, frequency, hematuria, last menstrual period, no symptoms, nocturia, other, vaginal bleed/discharge Neurologic: Denies: confusion, headache, no symptoms, numbness, other, weakness Psychiatric: Denies: anxiety, depression, no symptoms, other Skin: Denies: no symptoms, other, rash, ulcer Endocrine: Denies: feels cold, feels warm, no symptoms, other Hematologic: Denies: bleeding, no symptoms, other, swollen lymph nodes Allergies: Coded Allergies: NO KNOWN ALLERGIES (Unverified Allergy, Unknown, 10/15/15) Objective Vital Signs Last 24 Hour Vital Signs Date Time Temp Pulse Resp B/P Pulse Ox O2 Delivery O2 Flow Rate FiO2 12/19/16 16:10 97.3 58 18 148/59 97 Room Air 12/19/16 13:40 97.6 12/19/16 13:09 161/85 12/19/16 11:42 97.6 62 18 161/85 98 Room Air 12/19/16 08:35 188/90 12/19/16 08:35 68 188/90 12/19/16 08:34 68 188/90 12/19/16 08:15 97.3 68 20 188/90 94 Room Air 12/19/16 06:00 110/63 12/19/16 04:00 96.9 62 19 112/69 98 Room Air 12/19/16 00:00 96.8 61 19 117/65 97 Room Air 12/18/16 22:49 157/69 12/18/16 21:34 159/78 12/18/16 21:00 59 159/78 12/18/16 20:00 98.1 64 20 100/57 100 Room Air 12/18/16 17:35 144/75 Height (Feet): 5 Height (Inches): 9.00 Weight (Pounds): 310 General Appearance: WD/WN, no acute distress HEENT: normocephalic, atraumatic, anicteric, mucous membranes moist, PERRL Respiratory/Chest: chest wall non-tender, lungs clear, normal breath sounds, no respiratory distress, no accessory muscle use Cardiovascular: normal peripheral pulses, normal rate, regular rhythm, no gallop/murmur, no JVD Abdomen: normal bowel sounds, soft, non tender, no organomegaly, non distended , no mass Extremities: no cyanosis, no clubbing Skin: no rash, no lesions, no ulcers Microbiology Date/Time Source Procedure Growth Status 12/17/16 19:25 Urine,Clean Catch Urine Culture - Preliminary NO GROWTH AFTER 24 HOURS Resulted Laboratory Tests Test 12/18/16 20:14 12/19/16 13:30 White Blood Count 7.7 K/UL (4.8-10.8) 7.3 K/UL (4.8-10.8) Red Blood Count 4.69 M/UL (4.20-5.40) 4.44 M/UL (4.20-5.40) Hemoglobin 11.5 G/DL (12.0-16.0) L 10.7 G/DL (12.0-16.0) L Hematocrit 39.3 % (37.0-47.0) 37.3 % (37.0-47.0) Mean Corpuscular Volume 84 FL (80-99) 84 FL (80-99) Mean Corpuscular Hemoglobin 24.4 PG (27.0-31.0) L 24.1 PG (27.0-31.0) L Mean Corpuscular Hemoglobin Concent 29.2 G/DL (32.0-36.0) L 28.7 G/DL (32.0-36.0) L Red Cell Distribution Width 20.0 % (11.6-14.8) H 20.2 % (11.6-14.8) H Platelet Count 313 K/UL (150-450) 284 K/UL (150-450) Mean Platelet Volume 7.4 FL (6.5-10.1) 6.7 FL (6.5-10.1) Neutrophils (%) (Auto) 47.9 % (45.0-75.0) 49.1 % (45.0-75.0) Lymphocytes (%) (Auto) 25.9 % (20.0-45.0) 26.6 % (20.0-45.0) Monocytes (%) (Auto) 12.7 % (1.0-10.0) H 11.2 % (1.0-10.0) H Eosinophils (%) (Auto) 11.6 % (0.0-3.0) H 11.4 % (0.0-3.0) H Basophils (%) (Auto) 1.9 % (0.0-2.0) 1.7 % (0.0-2.0) Sodium Level 135 mEQ/L (135-145) 135 mEQ/L (135-145) Potassium Level 5.2 mEQ/L (3.4-4.9) H 5.9 mEQ/L (3.4-4.9) H Chloride Level 93 mEQ/L (98-107) L 93 mEQ/L (98-107) L Carbon Dioxide Level 25 mEQ/L (20-30) 25 mEQ/L (20-30) Anion Gap 17 (5-15) H 17 (5-15) H Blood Urea Nitrogen 35 mg/dL (7-23) H 42 mg/dL (7-23) H Creatinine 7.5 mg/dL (0.5-0.9) H 8.6 mg/dL (0.5-0.9) H Estimat Glomerular Filtration Rate 6.8 mL/min (>60) 5.7 mL/min (>60) Glucose Level 204 mg/dL (74-106) #H 265 mg/dL (74-106) H Calcium Level 9.5 mg/dL (8.6-10.2) 10.0 mg/dL (8.6-10.2) Hemoglobin A1c 8.0 % (< 6.0) H Total Bilirubin 0.4 mg/dL (0.0-1.2) Aspartate Amino Transf (AST/SGOT) 10 U/L (5-40) Alanine Aminotransferase (ALT/SGPT) 9 U/L (3-33) Alkaline Phosphatase 68 U/L (35-104) Total Protein 7.2 g/dL (6.6-8.7) Albumin 4.3 g/dL (3.5-5.2) Globulin 2.9 g/dL Albumin/Globulin Ratio 1.4 (1.0-2.7) Triglycerides Level 232 mg/dL (< 150) H Cholesterol Level 125 mg/dL (< 200) LDL Cholesterol 49 mg/dL (60-99) L HDL Cholesterol 30 mg/dL (> 60) Cholesterol/HDL Ratio 4.2 (3.3-4.4) Thyroid Stimulating Hormone (TSH) 1.120 uIU/mL (0.300-4.500) Current Medications Medications (Trade) Dose Ordered Sig/Josi Route PRN Reason Start Time Stop Time Status Last Admin Dose Admin Acetaminophen (Tylenol) 650 mg Q4H PRN ORAL fever 12/18/16 01:00 01/17/17 00:59 Al Hydroxide/Mg Hydroxide (Mylanta II) 30 ml Q6H PRN ORAL dyspepsia 12/18/16 01:00 01/17/17 00:59 Albuterol/ Ipratropium 3 ml 3 ml Q6HRT PRN HHN dyspnea 12/18/16 01:00 12/23/16 00:59 Allopurinol (Zyloprim) 100 mg DAILY ORAL 12/18/16 09:00 01/17/17 08:59 12/19/16 08:35 Amlodipine Besylate (Norvasc) 10 mg DAILY ORAL 12/18/16 09:00 01/17/17 08:59 12/19/16 08:34 Atorvastatin Calcium (Lipitor) 20 mg BEDTIME ORAL 12/18/16 21:00 01/17/17 20:59 12/18/16 21:31 Calcium Acetate (Phoslo) 667 mg TID ORAL 12/18/16 09:00 01/17/17 08:59 12/19/16 13:09 Clonidine HCl (Catapres) 0.1 mg EVERY 8 HOURS ORAL 12/18/16 09:00 01/17/17 08:59 12/19/16 13:09 Clonidine HCl (Catapres) 0.1 mg Q4H PRN ORAL For High Blood Pressure 12/18/16 01:00 01/17/17 00:59 Dextrose (Dextrose 50%) STAT PRN IV Hypoglycemia 12/18/16 01:00 01/17/17 00:59 Diphenhydramine HCl (Benadryl) 25 mg Q6H PRN IVP Itching 12/18/16 15:45 01/17/17 15:44 12/19/16 08:35 Furosemide (Lasix) 100 mg EVERY 8 HOURS PRN IV dyspnea 12/18/16 01:00 01/17/17 00:59 Heparin Sodium (Porcine) (Heparin 5000 units/ml) 5,000 units EVERY 12 HOURS SUBQ 12/18/16 09:00 01/17/17 08:59 12/19/16 08:40 Hydralazine HCl (Apresoline) 50 mg Q12HR ORAL 12/19/16 21:00 01/17/17 20:59 Insulin Aspart (NovoLOG) BEFORE MEALS AND HS SUBQ 12/18/16 06:30 01/17/17 06:29 12/19/16 11:32 Insulin Detemir (Levemir) 10 units DAILY SUBQ 12/19/16 09:00 01/18/17 08:59 12/19/16 10:36 Levofloxacin (Levaquin) 50 ml @ 50 mls/hr Q48H IVPB 12/20/16 02:30 12/27/16 02:29 Metoprolol Tartrate (Lopressor) 50 mg Q12HR ORAL 12/18/16 09:00 01/17/17 08:59 12/19/16 08:35 Morphine Sulfate (Morphine Sulfate) 1 mg Q4H PRN IVP Moderate Pain (Pain Scale 4-6) 12/18/16 01:00 12/25/16 00:59 12/18/16 12:11 Morphine Sulfate (Morphine Sulfate) 2 mg Q4H PRN IV Severe Breakthru Pain (>7) 12/18/16 01:00 12/25/16 00:59 12/19/16 13:10 Ondansetron HCl (Zofran) 4 mg Q6H PRN IVP Nausea & Vomiting 12/18/16 01:00 01/17/17 00:59 12/19/16 13:10 Polyethylene Glycol (Miralax) 17 gm HSPRN PRN ORAL Constipation 12/18/16 01:00 01/17/17 00:59 12/18/16 20:21 Sevelamer Carbonate (Renvela) 800 mg THREE TIMES A DAY ORAL 12/18/16 09:00 01/17/17 08:59 12/19/16 13:09 Zolpidem Tartrate (Ambien) 5 mg HSPRN PRN ORAL Insomnia 12/18/16 01:00 01/17/17 00:59 Rudy Pendleton M.D. Dec 19, 2016 17:23
[2016-12-19 20:00] VITALS: BP 177/77
[2016-12-19] MEDS: Atorvastatin 20mg tab ORAL SCH (20:27)
[2016-12-19] MEDS: HydrALAZINE 50mg tab ORAL SCH (20:27)
[2016-12-19] MEDS: Miralax 17gm pkt ORAL PRN (20:29)
--- NOTE | 2016-12-19 23:13 | Nephrology Progress Note ---
Assessment/Plan Problem List: (1) End stage renal disease on dialysis (2) Hyperkalemia (3) Diabetes (4) CHF (congestive heart failure) (5) Hypertension (6) Morbid obesity (7) Blindness (8) Dyspnea Plan tube mounter unavailable today. patient stable. HD to be rescheduled for am. monitor labs. Subjective Subjective comfortable. Objective Objective Last 24 Hour Vital Signs Date Time Temp Pulse Resp B/P Pulse Ox O2 Delivery O2 Flow Rate FiO2 12/19/16 22:40 154/79 12/19/16 20:27 177/77 12/19/16 20:27 60 177/77 12/19/16 20:00 97.5 60 18 177/77 95 Room Air 12/19/16 16:10 97.3 58 18 148/59 97 Room Air 12/19/16 13:40 97.6 12/19/16 13:09 161/85 12/19/16 11:42 97.6 62 18 161/85 98 Room Air 12/19/16 08:35 188/90 12/19/16 08:35 68 188/90 12/19/16 08:34 68 188/90 12/19/16 08:15 97.3 68 20 188/90 94 Room Air 12/19/16 06:00 110/63 12/19/16 04:00 96.9 62 19 112/69 98 Room Air 12/19/16 00:00 96.8 61 19 117/65 97 Room Air Intake and Output 12/18/16 12/19/16 19:00 07:00 Intake Total 380 ml Balance 380 ml Intake Oral 380 ml # Voids 2 1 Laboratory Tests 12/19/16 13:30: White Blood Count 7.3, Red Blood Count 4.44, Hemoglobin 10.7L, Hematocrit 37.3, Mean Corpuscular Volume 84, Mean Corpuscular Hemoglobin 24.1L, Mean Corpuscular Hemoglobin Concent 28.7L, Red Cell Distribution Width 20.2H, Platelet Count 284 , Mean Platelet Volume 6.7, Neutrophils (%) (Auto) 49.1, Lymphocytes (%) (Auto) 26.6, Monocytes (%) (Auto) 11.2H, Eosinophils (%) (Auto) 11.4H, Basophils (%) ( Auto) 1.7, Sodium Level 135, Potassium Level 5.9H, Chloride Level 93L, Carbon Dioxide Level 25, Anion Gap 17H, Blood Urea Nitrogen 42H, Creatinine 8.6H, Estimat Glomerular Filtration Rate 5.7, Glucose Level 265H, Hemoglobin A1c 8.0H , Calcium Level 10.0, Total Bilirubin 0.4, Aspartate Amino Transf (AST/SGOT) 10 , Alanine Aminotransferase (ALT/SGPT) 9, Alkaline Phosphatase 68, Total Protein 7.2, Albumin 4.3, Globulin 2.9, Albumin/Globulin Ratio 1.4, Triglycerides Level 232H, Cholesterol Level 125, LDL Cholesterol 49L, HDL Cholesterol 30, Cholesterol/HDL Ratio 4.2, Thyroid Stimulating Hormone (TSH) 1.120 Height (Feet): 5 Height (Inches): 9.00 Weight (Pounds): 310 General Appearance: no apparent distress Cardiovascular: normal rate, regular rhythm Respiratory/Chest: decreased breath sounds Abdomen: non tender, soft Extremities: moderate edema Neurologic: alert JOSE MAYA Dec 19, 2016 23:12
--- NOTE | 2016-12-19 23:51 | Pulmonology Progress Note ---
Assessment/Plan Assessment/Plan ASSESSMENT: Bilateral Pnuemonia Urinary tract infection. Sepsis. Edema. Abdominal pain. Dysuria. End-stage renal disease. Anemia. Diabetes. Hypertension. Obesity. Congestive heart failure. Hyperglycemia. 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 Pulmonary hygeine Suction often CXR examined Subjective ROS Limited/Unobtainable: No Respiratory: Reports: dyspnea at rest, dyspnea on exertion, pleuritic pain, productive cough, shortness of breath, sputum, wheezing Allergies: Coded Allergies: NO KNOWN ALLERGIES (Unverified Allergy, Unknown, 10/15/15) Objective Last 24 Hour Vital Signs Date Time Temp Pulse Resp B/P Pulse Ox O2 Delivery O2 Flow Rate FiO2 12/19/16 22:40 154/79 12/19/16 20:27 177/77 12/19/16 20:27 60 177/77 12/19/16 20:00 97.5 60 18 177/77 95 Room Air 12/19/16 16:10 97.3 58 18 148/59 97 Room Air 12/19/16 13:40 97.6 12/19/16 13:09 161/85 12/19/16 11:42 97.6 62 18 161/85 98 Room Air 12/19/16 08:35 188/90 12/19/16 08:35 68 188/90 12/19/16 08:34 68 188/90 12/19/16 08:15 97.3 68 20 188/90 94 Room Air 12/19/16 06:00 110/63 12/19/16 04:00 96.9 62 19 112/69 98 Room Air 12/19/16 00:00 96.8 61 19 117/65 97 Room Air Intake and Output 12/18/16 12/19/16 19:00 07:00 Intake Total 380 ml Balance 380 ml Intake Oral 380 ml # Voids 2 1 General Appearance: no acute distress HEENT: normocephalic, atraumatic, PERRL Respiratory/Chest: chest wall non-tender, decreased breath sounds, accessory muscle use, crackles/rales, rhonchi Breasts: no masses Cardiovascular: normal peripheral pulses, normal rate, regular rhythm, no JVD Abdomen: normal bowel sounds, soft, non tender, no organomegaly Genitourinary: normal external genitalia Extremities: no cyanosis Neurologic/Psychiatric: movie editor II-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 grossly normal, no motor/sensory deficits Microbiology Date/Time Source Procedure Growth Status 12/17/16 19:25 Urine,Clean Catch Urine Culture - Preliminary NO GROWTH AFTER 24 HOURS Resulted Laboratory Tests 12/19/16 13:30: White Blood Count 7.3, Red Blood Count 4.44, Hemoglobin 10.7L, Hematocrit 37.3, Mean Corpuscular Volume 84, Mean Corpuscular Hemoglobin 24.1L, Mean Corpuscular Hemoglobin Concent 28.7L, Red Cell Distribution Width 20.2H, Platelet Count 284 , Mean Platelet Volume 6.7, Neutrophils (%) (Auto) 49.1, Lymphocytes (%) (Auto) 26.6, Monocytes (%) (Auto) 11.2H, Eosinophils (%) (Auto) 11.4H, Basophils (%) ( Auto) 1.7, Sodium Level 135, Potassium Level 5.9H, Chloride Level 93L, Carbon Dioxide Level 25, Anion Gap 17H, Blood Urea Nitrogen 42H, Creatinine 8.6H, Estimat Glomerular Filtration Rate 5.7, Glucose Level 265H, Hemoglobin A1c 8.0H , Calcium Level 10.0, Total Bilirubin 0.4, Aspartate Amino Transf (AST/SGOT) 10 , Alanine Aminotransferase (ALT/SGPT) 9, Alkaline Phosphatase 68, Total Protein 7.2, Albumin 4.3, Globulin 2.9, Albumin/Globulin Ratio 1.4, Triglycerides Level 232H, Cholesterol Level 125, LDL Cholesterol 49L, HDL Cholesterol 30, Cholesterol/HDL Ratio 4.2, Thyroid Stimulating Hormone (TSH) 1.120 Current Medications Medications (Trade) Dose Ordered Sig/Josi Route PRN Reason Start Time Stop Time Status Last Admin Dose Admin Acetaminophen (Tylenol) 650 mg Q4H PRN ORAL fever 12/18/16 01:00 01/17/17 00:59 Al Hydroxide/Mg Hydroxide (Mylanta II) 30 ml Q6H PRN ORAL dyspepsia 12/18/16 01:00 01/17/17 00:59 Albuterol/ Ipratropium 3 ml 3 ml Q6HRT PRN HHN dyspnea 12/18/16 01:00 12/23/16 00:59 Allopurinol (Zyloprim) 100 mg DAILY ORAL 12/18/16 09:00 01/17/17 08:59 12/19/16 08:35 Amlodipine Besylate (Norvasc) 10 mg DAILY ORAL 12/18/16 09:00 01/17/17 08:59 12/19/16 08:34 Atorvastatin Calcium (Lipitor) 20 mg BEDTIME ORAL 12/18/16 21:00 01/17/17 20:59 12/19/16 20:27 Calcium Acetate (Phoslo) 667 mg TID ORAL 12/18/16 09:00 01/17/17 08:59 12/19/16 17:31 Clonidine HCl (Catapres) 0.1 mg EVERY 8 HOURS ORAL 12/18/16 09:00 01/17/17 08:59 12/19/16 22:40 Clonidine HCl (Catapres) 0.1 mg Q4H PRN ORAL For High Blood Pressure 12/18/16 01:00 01/17/17 00:59 Dextrose (Dextrose 50%) STAT PRN IV Hypoglycemia 12/18/16 01:00 01/17/17 00:59 Diphenhydramine HCl (Benadryl) 25 mg Q6H PRN IVP Itching 12/18/16 15:45 01/17/17 15:44 12/19/16 08:35 Furosemide (Lasix) 100 mg EVERY 8 HOURS PRN IV dyspnea 12/18/16 01:00 01/17/17 00:59 Heparin Sodium (Porcine) (Heparin 5000 units/ml) 5,000 units EVERY 12 HOURS SUBQ 12/18/16 09:00 01/17/17 08:59 12/19/16 20:26 Hydralazine HCl (Apresoline) 50 mg Q12HR ORAL 12/19/16 21:00 01/17/17 20:59 12/19/16 20:27 Insulin Aspart (NovoLOG) BEFORE MEALS AND HS SUBQ 12/18/16 06:30 01/17/17 06:29 12/19/16 20:26 Insulin Detemir (Levemir) 10 units DAILY SUBQ 12/19/16 09:00 01/18/17 08:59 12/19/16 10:36 Levofloxacin (Levaquin) 50 ml @ 50 mls/hr Q48H IVPB 12/20/16 02:30 12/27/16 02:29 Metoprolol Tartrate (Lopressor) 50 mg Q12HR ORAL 12/18/16 09:00 01/17/17 08:59 12/19/16 20:27 Morphine Sulfate (Morphine Sulfate) 1 mg Q4H PRN IVP Moderate Pain (Pain Scale 4-6) 12/18/16 01:00 12/25/16 00:59 12/18/16 12:11 Morphine Sulfate (Morphine Sulfate) 2 mg Q4H PRN IV Severe Breakthru Pain (>7) 12/18/16 01:00 12/25/16 00:59 12/19/16 13:10 Ondansetron HCl (Zofran) 4 mg Q6H PRN IVP Nausea & Vomiting 12/18/16 01:00 01/17/17 00:59 12/19/16 13:10 Polyethylene Glycol (Miralax) 17 gm HSPRN PRN ORAL Constipation 12/18/16 01:00 01/17/17 00:59 12/19/16 20:29 Sevelamer Carbonate (Renvela) 800 mg THREE TIMES A DAY ORAL 12/18/16 09:00 01/17/17 08:59 12/19/16 17:30 Zolpidem Tartrate (Ambien) 5 mg HSPRN PRN ORAL Insomnia 12/18/16 01:00 01/17/17 00:59 JONES BARAKAT Dec 19, 2016 23:51
[2016-12-20] VITALS (8 sets, daily range): BP systolic 142–174; BP diastolic 60–83
[2016-12-20] MEDS: DiphenhydrAMINE 50mg/ml Inj IVP PRN ×2 (01:31→09:27)
[2016-12-20] MEDS ORDERED: Levofloxacin 250mg/D5W 50ml IVPB SCH (02:30)
[2016-12-20] MEDS: NovoLOG Insulin Flexpen SUBQ SCH ×3 (06:04→18:05)
[2016-12-20 07:39] LABS: BASOPHILS % (AUTO) 0.8 % (0.0-2.0); EOSINOPHILS % (AUTO) 11.3 % (0.0-3.0); LYMPHOCYTES % (AUTO) 27.5 % (20.0-45.0); MEAN CORPUSCULAR HEMOGLOBIN 23.4 PG (27.0-31.0); MEAN CORPUSCULAR HGB CONC 28.6 G/DL (32.0-36.0); MEAN CORPUSCULAR VOLUME 82 FL (80-99); MEAN PLATELET VOLUME 7.4 FL (6.5-10.1); MONOCYTES % (AUTO) 10.2 % (1.0-10.0); NEUTROPHILS % (AUTO) 50.1 % (45.0-75.0); PLATELET COUNT 278 K/UL (150-450); RED BLOOD COUNT 4.33 M/UL (4.20-5.40); RED CELL DISTRIBUTION WIDTH 19.6 % (11.6-14.8)
[2016-12-20 07:51] LABS: CALCIUM 8.9 mg/dL (8.6-10.2); CREATININE 9.3 mg/dL (0.5-0.9); GLOMERULAR FILTRATION RATE 5.2 mL/min (>60); POTASSIUM 5.7 mEQ/L (3.4-4.9)
--- NOTE | 2016-12-20 08:17 | Nephrology Progress Note ---
Assessment/Plan Problem List: (1) Headache (2) Hyponatremia (3) Chest pain (4) CHF (congestive heart failure) (5) Hypertension (6) Morbid obesity (7) Blindness (8) Uncontrolled diabetes mellitus (9) End stage renal disease on dialysis (10) UTI (urinary tract infection) Plan Continue HD MWF Fluid restriction Pain management Monitor I&O Abx per ID BP control AM labs Subjective Constitutional: Denies: chills, diaphoresis, fever, malaise, no symptoms, other , weakness HEENT: Denies: blurred vision, double vision, ear discharge, ear pain, eye pain , mouth pain, mouth swelling, no symptoms, nose congestion, nose pain, other, tearing, throat pain, throat swelling Genitourinary: Denies: burning, discharge, flank pain, frequency, hematuria, incontinence, no symptoms, other, pain, urgency Neurologic/Psychiatric: Denies: anxiety, depressed, emotional problems, headache, no symptoms, numbness, other, paresthesia, pre-existing deficit, seizure, tingling, tremors, weakness Subjective HD ongoing, denies discomfort at this time Objective Objective Last 24 Hour Vital Signs Date Time Temp Pulse Resp B/P Pulse Ox O2 Delivery O2 Flow Rate FiO2 12/20/16 05:45 148/63 12/20/16 05:00 96.4 58 20 148/63 96 Room Air 12/20/16 05:00 Room Air 12/20/16 04:00 96.3 52 16 146/72 95 Room Air 12/20/16 00:00 97.3 56 18 142/61 98 Room Air 12/19/16 22:40 154/79 12/19/16 20:27 177/77 12/19/16 20:27 60 177/77 12/19/16 20:00 97.5 60 18 177/77 95 Room Air 12/19/16 16:10 97.3 58 18 148/59 97 Room Air 12/19/16 13:40 97.6 12/19/16 13:09 161/85 12/19/16 11:42 97.6 62 18 161/85 98 Room Air 12/19/16 08:35 188/90 12/19/16 08:35 68 188/90 12/19/16 08:34 68 188/90 Intake and Output 12/19/16 12/20/16 19:00 07:00 Intake Total 600 ml 800 ml Output Total 200 ml Balance 600 ml 600 ml Intake Oral 600 ml 800 ml Output Urine Total 200 ml # Voids 2 3 Laboratory Tests 12/19/16 13:30: White Blood Count 7.3, Red Blood Count 4.44, Hemoglobin 10.7L, Hematocrit 37.3, Mean Corpuscular Volume 84, Mean Corpuscular Hemoglobin 24.1L, Mean Corpuscular Hemoglobin Concent 28.7L, Red Cell Distribution Width 20.2H, Platelet Count 284 , Mean Platelet Volume 6.7, Neutrophils (%) (Auto) 49.1, Lymphocytes (%) (Auto) 26.6, Monocytes (%) (Auto) 11.2H, Eosinophils (%) (Auto) 11.4H, Basophils (%) ( Auto) 1.7, Sodium Level 135, Potassium Level 5.9H, Chloride Level 93L, Carbon Dioxide Level 25, Anion Gap 17H, Blood Urea Nitrogen 42H, Creatinine 8.6H, Estimat Glomerular Filtration Rate 5.7, Glucose Level 265H, Hemoglobin A1c 8.0H , Calcium Level 10.0, Total Bilirubin 0.4, Aspartate Amino Transf (AST/SGOT) 10 , Alanine Aminotransferase (ALT/SGPT) 9, Alkaline Phosphatase 68, Total Protein 7.2, Albumin 4.3, Globulin 2.9, Albumin/Globulin Ratio 1.4, Triglycerides Level 232H, Cholesterol Level 125, LDL Cholesterol 49L, HDL Cholesterol 30, Cholesterol/HDL Ratio 4.2, Thyroid Stimulating Hormone (TSH) 1.120 12/20/16 05:00: White Blood Count 8.0, Red Blood Count 4.33, Hemoglobin 10.1L, Hematocrit 35.4L , Mean Corpuscular Volume 82, Mean Corpuscular Hemoglobin 23.4L, Mean Corpuscular Hemoglobin Concent 28.6L, Red Cell Distribution Width 19.6H, Platelet Count 278, Mean Platelet Volume 7.4, Neutrophils (%) (Auto) 50.1, Lymphocytes (%) (Auto) 27.5, Monocytes (%) (Auto) 10.2H, Eosinophils (%) (Auto) 11.3H, Basophils (%) (Auto) 0.8, Sodium Level 132L, Potassium Level 5.7H, Chloride Level 90L, Carbon Dioxide Level 20, Anion Gap 22H, Blood Urea Nitrogen 55H, Creatinine 9.3H, Estimat Glomerular Filtration Rate 5.2, Glucose Level 253H , Calcium Level 8.9 Height (Feet): 5 Height (Inches): 9.00 Weight (Pounds): 310 General Appearance: no apparent distress EENT: normal ENT inspection Neck: non-tender, normal alignment Cardiovascular: normal rate Respiratory/Chest: decreased breath sounds Extremities: non-tender, normal inspection, no calf tenderness Neurologic: alert, oriented x 3, responsive, normal mood/affect Kusum Flores N.P. Dec 20, 2016 08:17
[2016-12-20] MEDS: Metoprolol 50mg tab ORAL SCH (09:00)
[2016-12-20] MEDS: Morphine Sulfate 2mg/ml Inj IV PRN (09:26)
[2016-12-20] MEDS: HydrALAZINE 50mg tab ORAL SCH (09:26)
[2016-12-20] MEDS: Calcium Acetate 667mg Tab ORAL SCH ×3 (09:27→18:04)
[2016-12-20] MEDS: Allopurinol 100mg Tab ORAL SCH (09:28)
[2016-12-20] MEDS: Heparin 5000 units/ml inj SUBQ SCH (09:31)
[2016-12-20] MEDS: Levemir Flexpen SUBQ SCH (09:32)
--- NOTE | 2016-12-20 13:25 | General Progress Note ---
Assessment/Plan Problem List: (1) Anemia ICD Codes: D64.9 - Anemia, unspecified SNOMED: 821932220 (2) Hypertension ICD Codes: I10 - Hypertension SNOMED: 06642684 (3) Morbid obesity ICD Codes: E66.01 - Morbid obesity SNOMED: 201640331 (4) Constipation ICD Codes: K59.00 - Constipation, unspecified SNOMED: 95848938 (5) CHF (congestive heart failure) ICD Codes: I50.9 - Heart failure, unspecified SNOMED: 46193207 (6) CKD (chronic kidney disease) ICD Codes: N18.9 - CKD (chronic kidney disease) SNOMED: 220522702 (7) Blindness of both eyes ICD Codes: H54.0 - Blindness SNOMED: 973097061 (8) Sepsis ICD Codes: A41.9 - Sepsis, unspecified organism SNOMED: 29094765 (9) Diabetes ICD Codes: E11.9 - Type 2 diabetes mellitus without complications SNOMED: 11910060 (10) ESRD (end stage renal disease) on dialysis ICD Codes: N18.6 - End stage renal failure on dialysis; Z99.2 - Dependence on renal dialysis SNOMED: 412461370 (11) Hyperkalemia ICD Codes: E87.5 - Hyperkalemia SNOMED: 32155161 Status: stable, progressing, tolerating diet Assessment/Plan ot pt diet abx dialysis cbc bmp am dc plan Subjective Constitutional: Reports: weakness Allergies: Coded Allergies: NO KNOWN ALLERGIES (Unverified Allergy, Unknown, 10/15/15) All Systems: reviewed and negative except above Subjective calm in bed Objective Last 24 Hour Vital Signs Date Time Temp Pulse Resp B/P Pulse Ox O2 Delivery O2 Flow Rate FiO2 12/20/16 13:08 174/83 12/20/16 11:57 97.8 61 20 174/83 97 Room Air 12/20/16 09:33 56 165/60 12/20/16 09:26 165/60 12/20/16 09:00 56 165/60 12/20/16 08:53 Room Air 12/20/16 08:30 96.2 56 18 165/60 96 Room Air 12/20/16 08:26 58 22 152/69 12/20/16 05:45 148/63 12/20/16 05:00 96.4 58 20 148/63 96 Room Air 12/20/16 05:00 Room Air 12/20/16 04:00 96.3 52 16 146/72 95 Room Air 12/20/16 00:00 97.3 56 18 142/61 98 Room Air 12/19/16 22:40 154/79 12/19/16 20:27 177/77 12/19/16 20:27 60 177/77 12/19/16 20:00 97.5 60 18 177/77 95 Room Air 12/19/16 16:10 97.3 58 18 148/59 97 Room Air 12/19/16 13:40 97.6 Intake and Output 12/19/16 12/20/16 19:00 07:00 Intake Total 600 ml 800 ml Output Total 200 ml Balance 600 ml 600 ml Intake Oral 600 ml 800 ml Output Urine Total 200 ml # Voids 2 3 Laboratory Tests 12/19/16 13:30: White Blood Count 7.3, Red Blood Count 4.44, Hemoglobin 10.7L, Hematocrit 37.3, Mean Corpuscular Volume 84, Mean Corpuscular Hemoglobin 24.1L, Mean Corpuscular Hemoglobin Concent 28.7L, Red Cell Distribution Width 20.2H, Platelet Count 284 , Mean Platelet Volume 6.7, Neutrophils (%) (Auto) 49.1, Lymphocytes (%) (Auto) 26.6, Monocytes (%) (Auto) 11.2H, Eosinophils (%) (Auto) 11.4H, Basophils (%) ( Auto) 1.7, Sodium Level 135, Potassium Level 5.9H, Chloride Level 93L, Carbon Dioxide Level 25, Anion Gap 17H, Blood Urea Nitrogen 42H, Creatinine 8.6H, Estimat Glomerular Filtration Rate 5.7, Glucose Level 265H, Hemoglobin A1c 8.0H , Calcium Level 10.0, Total Bilirubin 0.4, Aspartate Amino Transf (AST/SGOT) 10 , Alanine Aminotransferase (ALT/SGPT) 9, Alkaline Phosphatase 68, Total Protein 7.2, Albumin 4.3, Globulin 2.9, Albumin/Globulin Ratio 1.4, Triglycerides Level 232H, Cholesterol Level 125, LDL Cholesterol 49L, HDL Cholesterol 30, Cholesterol/HDL Ratio 4.2, Thyroid Stimulating Hormone (TSH) 1.120 12/20/16 05:00: White Blood Count 8.0, Red Blood Count 4.33, Hemoglobin 10.1L, Hematocrit 35.4L , Mean Corpuscular Volume 82, Mean Corpuscular Hemoglobin 23.4L, Mean Corpuscular Hemoglobin Concent 28.6L, Red Cell Distribution Width 19.6H, Platelet Count 278, Mean Platelet Volume 7.4, Neutrophils (%) (Auto) 50.1, Lymphocytes (%) (Auto) 27.5, Monocytes (%) (Auto) 10.2H, Eosinophils (%) (Auto) 11.3H, Basophils (%) (Auto) 0.8, Sodium Level 132L, Potassium Level 5.7H, Chloride Level 90L, Carbon Dioxide Level 20, Anion Gap 22H, Blood Urea Nitrogen 55H, Creatinine 9.3H, Estimat Glomerular Filtration Rate 5.2, Glucose Level 253H , Calcium Level 8.9 Height (Feet): 5 Height (Inches): 9.00 Weight (Pounds): 310 General Appearance: alert EENT: normal ENT inspection Neck: normal alignment Cardiovascular: normal peripheral pulses, normal rate, regular rhythm Respiratory/Chest: chest wall non-tender, lungs clear, normal breath sounds Abdomen: normal bowel sounds, non tender, soft Neurologic: responsive, motor weakness Skin: normal pigmentation, warm/dry BRIE LAN Dec 20, 2016 13:25
[2016-12-20] MEDS ORDERED: LEVAQUIN250 M1 ORAL (17:23)
--- NOTE | 2016-12-20 17:29 | Cardiac Electrophysiology PN ---
Assessment/Plan Assessment/Plan 1. Shortness of breath secondary to volume overload . Better after Dialysis by Dr. Squires. 2. Hypertensive heart disease. Continue Norvasc 10 mg daily, metoprolol 50 mg b.i.d. and hydralazine 50 mg b.i.d. 3. Diabetes 4. End-stage renal disease, on hemodialysis. 5. Chronic obstructive pulmonary disease. 6. Urinary tract infection. DW rN DC tonight Subjective Subjective Alert in NAD. Wants to go home.No chest pain or SOB. Objective Last 24 Hour Vital Signs Date Time Temp Pulse Resp B/P Pulse Ox O2 Delivery O2 Flow Rate FiO2 12/20/16 16:00 99.1 62 20 149/77 94 Room Air 12/20/16 13:08 174/83 12/20/16 11:57 97.8 61 20 174/83 97 Room Air 12/20/16 09:33 56 165/60 12/20/16 09:26 165/60 12/20/16 09:00 56 165/60 12/20/16 08:53 Room Air 12/20/16 08:30 96.2 56 18 165/60 96 Room Air 12/20/16 08:26 58 22 152/69 12/20/16 05:45 148/63 12/20/16 05:00 96.4 58 20 148/63 96 Room Air 12/20/16 05:00 Room Air 12/20/16 04:00 96.3 52 16 146/72 95 Room Air 12/20/16 00:00 97.3 56 18 142/61 98 Room Air 12/19/16 22:40 154/79 12/19/16 20:27 177/77 12/19/16 20:27 60 177/77 12/19/16 20:00 97.5 60 18 177/77 95 Room Air Intake and Output 12/19/16 12/20/16 19:00 07:00 Intake Total 600 ml 800 ml Output Total 200 ml Balance 600 ml 600 ml Intake Oral 600 ml 800 ml Output Urine Total 200 ml # Voids 2 3 Laboratory Tests Test 12/20/16 05:00 White Blood Count 8.0 K/UL (4.8-10.8) Red Blood Count 4.33 M/UL (4.20-5.40) Hemoglobin 10.1 G/DL (12.0-16.0) L Hematocrit 35.4 % (37.0-47.0) L Mean Corpuscular Volume 82 FL (80-99) Mean Corpuscular Hemoglobin 23.4 PG (27.0-31.0) L Mean Corpuscular Hemoglobin Concent 28.6 G/DL (32.0-36.0) L Red Cell Distribution Width 19.6 % (11.6-14.8) H Platelet Count 278 K/UL (150-450) Mean Platelet Volume 7.4 FL (6.5-10.1) Neutrophils (%) (Auto) 50.1 % (45.0-75.0) Lymphocytes (%) (Auto) 27.5 % (20.0-45.0) Monocytes (%) (Auto) 10.2 % (1.0-10.0) H Eosinophils (%) (Auto) 11.3 % (0.0-3.0) H Basophils (%) (Auto) 0.8 % (0.0-2.0) Sodium Level 132 mEQ/L (135-145) L Potassium Level 5.7 mEQ/L (3.4-4.9) H Chloride Level 90 mEQ/L (98-107) L Carbon Dioxide Level 20 mEQ/L (20-30) Anion Gap 22 (5-15) H Blood Urea Nitrogen 55 mg/dL (7-23) H Creatinine 9.3 mg/dL (0.5-0.9) H Estimat Glomerular Filtration Rate 5.2 mL/min (>60) Glucose Level 253 mg/dL (74-106) H Calcium Level 8.9 mg/dL (8.6-10.2) Microbiology Date/Time Source Procedure Growth Status 12/17/16 19:25 Urine,Clean Catch Urine Culture - Final NO GROWTH AFTER 48 HOURS Complete Objective HEAD AND NECK: Shows mild JVD. LUNGS: Decreased breath sounds. CARDIOVASCULAR: Shows distant heart sounds without murmur ABDOMEN: Morbidly obese. EXTREMITIES: 1+ pitting edema. ARNIE ALVARENGA Dec 20, 2016 17:29
--- NOTE | 2016-12-20 17:37 | Geriatric Medicine Prog Note ---
DATE: 12/19/2016 NOTE: POOR AUDIO QUALITY ENDOCRINOLOGY PROGRESS NOTE SUBJECTIVE: The patient is more comfortable today, improved diabetic control. OBJECTIVE: VITAL SIGNS: Blood pressure 142/61, pulse and temperature 97.3. RESPIRATORY: Clear. CARDIAC: Regular rhythm. LABORATORY DATA: Glucose was 118. . PLAN: . Ronen Bejarano M.D. DR: ANN JOB#: [id number] CC:
--- NOTE | 2016-12-20 17:38 | Infectious Diseases Prog Note ---
Assessment/Plan Problems: (1) UTI (urinary tract infection) Assessment & Plan: await urine culture and continue levofloxacin for 5 days total (2) Diabetes Assessment & Plan: recommend tight glycemic controle to keep blood glucose between 80-120 (3) Hypertension Assessment & Plan: continue meds to keep SBP<140 (4) CHF (congestive heart failure) Assessment & Plan: on HD , renal is following (5) ESRD (end stage renal disease) on dialysis Assessment & Plan: management as per renal , continue HD (6) Vaginal yeast infection Assessment & Plan: received single dose of fluconazol 150 mg po x1 Subjective Constitutional: Denies: anorexia, chills, drenching sweats, fatigue, fever, no symptoms, other HEENT: Denies: congestion, coryza, dysphagia, hearing change, no symptoms, other, visual change Respiratory: Denies: dry cough, no symptoms, other, productive cough, shortness of breath Breasts: Denies: discharge, no symptoms, other, swelling, tenderness Cardiovascular: Denies: chest pain, dyspnea on exertion, no symptoms, other, palpitations Gastrointestinal/Abdominal: Denies: bloating, blood in stool, constipation, diarrhea, nausea, no symptoms, other, vomiting Genitourinary: Denies: dysuria, frequency, hematuria, last menstrual period, no symptoms, nocturia, other, vaginal bleed/discharge Neurologic: Denies: confusion, headache, no symptoms, numbness, other, weakness Psychiatric: Denies: anxiety, depression, no symptoms, other Skin: Denies: no symptoms, other, rash, ulcer Endocrine: Denies: feels cold, feels warm, no symptoms, other Allergies: Coded Allergies: NO KNOWN ALLERGIES (Unverified Allergy, Unknown, 10/15/15) Objective Vital Signs Last 24 Hour Vital Signs Date Time Temp Pulse Resp B/P Pulse Ox O2 Delivery O2 Flow Rate FiO2 12/20/16 16:00 99.1 62 20 149/77 94 Room Air 12/20/16 13:08 174/83 12/20/16 11:57 97.8 61 20 174/83 97 Room Air 12/20/16 09:33 56 165/60 12/20/16 09:26 165/60 12/20/16 09:00 56 165/60 12/20/16 08:53 Room Air 12/20/16 08:30 96.2 56 18 165/60 96 Room Air 12/20/16 08:26 58 22 152/69 12/20/16 05:45 148/63 12/20/16 05:00 96.4 58 20 148/63 96 Room Air 12/20/16 05:00 Room Air 12/20/16 04:00 96.3 52 16 146/72 95 Room Air 12/20/16 00:00 97.3 56 18 142/61 98 Room Air 12/19/16 22:40 154/79 12/19/16 20:27 177/77 12/19/16 20:27 60 177/77 12/19/16 20:00 97.5 60 18 177/77 95 Room Air Height (Feet): 5 Height (Inches): 9.00 Weight (Pounds): 310 General Appearance: WD/WN, no acute distress HEENT: normocephalic, atraumatic, anicteric, mucous membranes moist Respiratory/Chest: chest wall non-tender, lungs clear, normal breath sounds, no respiratory distress, no accessory muscle use Cardiovascular: normal peripheral pulses, normal rate, regular rhythm, no gallop/murmur Abdomen: normal bowel sounds, soft, non tender, no organomegaly, non distended , no mass Extremities: no cyanosis, no clubbing Skin: no rash, no lesions Microbiology Date/Time Source Procedure Growth Status 12/17/16 19:25 Urine,Clean Catch Urine Culture - Final NO GROWTH AFTER 48 HOURS Complete Laboratory Tests Test 12/20/16 05:00 White Blood Count 8.0 K/UL (4.8-10.8) Red Blood Count 4.33 M/UL (4.20-5.40) Hemoglobin 10.1 G/DL (12.0-16.0) L Hematocrit 35.4 % (37.0-47.0) L Mean Corpuscular Volume 82 FL (80-99) Mean Corpuscular Hemoglobin 23.4 PG (27.0-31.0) L Mean Corpuscular Hemoglobin Concent 28.6 G/DL (32.0-36.0) L Red Cell Distribution Width 19.6 % (11.6-14.8) H Platelet Count 278 K/UL (150-450) Mean Platelet Volume 7.4 FL (6.5-10.1) Neutrophils (%) (Auto) 50.1 % (45.0-75.0) Lymphocytes (%) (Auto) 27.5 % (20.0-45.0) Monocytes (%) (Auto) 10.2 % (1.0-10.0) H Eosinophils (%) (Auto) 11.3 % (0.0-3.0) H Basophils (%) (Auto) 0.8 % (0.0-2.0) Sodium Level 132 mEQ/L (135-145) L Potassium Level 5.7 mEQ/L (3.4-4.9) H Chloride Level 90 mEQ/L (98-107) L Carbon Dioxide Level 20 mEQ/L (20-30) Anion Gap 22 (5-15) H Blood Urea Nitrogen 55 mg/dL (7-23) H Creatinine 9.3 mg/dL (0.5-0.9) H Estimat Glomerular Filtration Rate 5.2 mL/min (>60) Glucose Level 253 mg/dL (74-106) H Calcium Level 8.9 mg/dL (8.6-10.2) Current Medications Medications (Trade) Dose Ordered Sig/Josi Route PRN Reason Start Time Stop Time Status Last Admin Dose Admin Acetaminophen (Tylenol) 650 mg Q4H PRN ORAL fever 12/18/16 01:00 01/17/17 00:59 Al Hydroxide/Mg Hydroxide (Mylanta II) 30 ml Q6H PRN ORAL dyspepsia 12/18/16 01:00 01/17/17 00:59 Albuterol/ Ipratropium 3 ml 3 ml Q6HRT PRN HHN dyspnea 12/18/16 01:00 12/23/16 00:59 Allopurinol (Zyloprim) 100 mg DAILY ORAL 12/18/16 09:00 01/17/17 08:59 12/20/16 09:28 Amlodipine Besylate (Norvasc) 10 mg DAILY ORAL 12/18/16 09:00 01/17/17 08:59 12/20/16 09:33 Atorvastatin Calcium (Lipitor) 20 mg BEDTIME ORAL 12/18/16 21:00 01/17/17 20:59 12/19/16 20:27 Calcium Acetate (Phoslo) 667 mg TID ORAL 12/18/16 09:00 01/17/17 08:59 12/20/16 13:08 Clonidine HCl (Catapres) 0.1 mg EVERY 8 HOURS ORAL 12/18/16 09:00 01/17/17 08:59 12/20/16 13:08 Clonidine HCl (Catapres) 0.1 mg Q4H PRN ORAL For High Blood Pressure 12/18/16 01:00 01/17/17 00:59 Dextrose (Dextrose 50%) STAT PRN IV Hypoglycemia 12/18/16 01:00 01/17/17 00:59 Diphenhydramine HCl (Benadryl) 25 mg Q6H PRN IVP Itching 12/18/16 15:45 01/17/17 15:44 12/20/16 09:27 Furosemide (Lasix) 100 mg EVERY 8 HOURS PRN IV dyspnea 12/18/16 01:00 01/17/17 00:59 Heparin Sodium (Porcine) (Heparin 5000 units/ml) 5,000 units EVERY 12 HOURS SUBQ 12/18/16 09:00 01/17/17 08:59 12/20/16 09:31 Hydralazine HCl (Apresoline) 50 mg Q12HR ORAL 12/19/16 21:00 01/17/17 20:59 12/20/16 09:26 Insulin Aspart (NovoLOG) BEFORE MEALS AND HS SUBQ 12/18/16 06:30 01/17/17 06:29 12/20/16 13:10 Insulin Detemir (Levemir) 10 units DAILY SUBQ 12/19/16 09:00 01/18/17 08:59 12/20/16 09:32 Levofloxacin (Levaquin) 50 ml @ 50 mls/hr Q48H IVPB 12/20/16 02:30 12/27/16 02:29 12/20/16 01:37 Metoprolol Tartrate (Lopressor) 50 mg Q12HR ORAL 12/18/16 09:00 01/17/17 08:59 12/19/16 20:27 Morphine Sulfate (Morphine Sulfate) 1 mg Q4H PRN IVP Moderate Pain (Pain Scale 4-6) 12/18/16 01:00 12/25/16 00:59 12/18/16 12:11 Morphine Sulfate (Morphine Sulfate) 2 mg Q4H PRN IV Severe Breakthru Pain (>7) 12/18/16 01:00 12/25/16 00:59 12/20/16 09:26 Ondansetron HCl (Zofran) 4 mg Q6H PRN IVP Nausea & Vomiting 12/18/16 01:00 01/17/17 00:59 12/20/16 09:27 Polyethylene Glycol (Miralax) 17 gm HSPRN PRN ORAL Constipation 12/18/16 01:00 01/17/17 00:59 12/19/16 20:29 Sevelamer Carbonate (Renvela) 800 mg THREE TIMES A DAY ORAL 12/18/16 09:00 01/17/17 08:59 12/20/16 13:08 Zolpidem Tartrate (Ambien) 5 mg HSPRN PRN ORAL Insomnia 12/18/16 01:00 01/17/17 00:59 Rudy Pendleton M.D. Dec 20, 2016 17:38
[2016-12-20] MEDS ORDERED: Tubing IV Secondary IV ONE (19:19)
[2016-12-20] MEDS ORDERED: NS 275ml ONE (19:19)
--- NOTE | 2016-12-21 17:22 | Discharge Summary ---
Discharge Summary Hospital Course Date of Admission Dec 17, 2016 at 21:44 Date of Discharge Dec 20, 2016 at 19:20 Admitting Diagnosis UTI, hyperglycemia HPI Tawny Frias is a 61 year old female who was admitted on Dec 17, 2016 at 21:44 for Urinary Tract Infection, Hyperglycemia Hospital Course [id number] Discharge Discharge Disposition Patient was discharged to Home with Home Health(06) Discharge Diagnoses: Cece Scott NP Dec 21, 2016 17:22
--- NOTE | 2016-12-22 03:47 | Discharge Summary 2 SIG ---
DATE OF ADMISSION: 12/17/2016 DATE OF DISCHARGE: 12/20/2016 CONSULTANTS: 1. Rudy Pendleton M.D. 2. Ronen Bejarano M.D. 3. Shalom Vinson M.D. 4. Demetris Squires M.D. BRIEF HOSPITAL COURSE: The patient is a patient is a 61-year-old female from home, who presented with abdominal pain and dysuria for a week and was nauseous. She was diagnosed to have urinary tract infection and sepsis and was admitted to medical floor. Urinalysis showed urine WBC 5 to 10 and urine RBC 10 to 15 with 1+ leukocyte esterase and 2+ occult blood. Dr. Pendleton was consulted and the patient was given empiric treatment with levofloxacin. She was also given fluconazole one dose for possible vaginal yeast infection. Dr. Vinson was consulted for evaluation of congestive heart failure. BNP was 5602. Dr. Squires was consulted. The patient has end-stage renal disease. She was given inpatient hemodialysis. Shortness of breath possibly secondary to volume overload, improved after dialysis. She has hypertensive heart disease and was given Norvasc, metoprolol, and hydralazine. Dr. Bejarano was consulted. Blood glucose was monitored. The patient was eventually discharged home with home health. FINAL DIAGNOSES: 1. Urinary tract infection. 2. Diabetes mellitus, out of control. 3. Vaginal yeast infection. 4. End-stage renal disease, on hemodialysis. 5. Hyperkalemia. 6. Acute on chronic diastolic congestive heart failure. 7. Morbid obesity. 8. Hypertensive heart disease. 9. Anemia of kidney disease. 10. Blindness of both eyes. 11. Constipation. 12. Hyponatremia. 13. Headache. Roderick Henning D.O. I have been assigned to dictate discharge summary on this account and I was not involved in the patient's management. Agusto BainPMeli DR: FANNIE JOB#: [id number] CC: JEAN
== END 2016-12-20 19:20 | disposition home health service (06) | DRG 689 ==
LOC: EMR 19:10 → 4W 21:44 → EDBEDREQ 12-18 01:56
PROC: 5A1D00Z (ICD-10-PCS; principal; 2016-12-20)
DX: N39.0 Urinary tract infection, site not specified (principal); N18.6 End stage renal disease; I50.33 Acute on chronic diastolic (congestive) heart failure; E11.22 Type 2 diabetes mellitus with diabetic chronic kidney disease; E87.1 Hypo-osmolality and hyponatremia; B37.3 Candidiasis of vulva and vagina; Z68.42 Body mass index [BMI] 45.0-49.9, adult; I13.2 Hypertensive heart and chronic kidney disease with heart failure and with stage 5 chronic kidney disease, or end stage renal disease; Z99.2 Dependence on renal dialysis; E87.5 Hyperkalemia; E11.65 Type 2 diabetes mellitus with hyperglycemia; E66.01 Morbid (severe) obesity due to excess calories; H54.0 Blindness, both eyes; D64.9 Anemia, unspecified; J44.9 Chronic obstructive pulmonary disease, unspecified; J45.909 Unspecified asthma, uncomplicated; K59.00 Constipation, unspecified; D63.1 Anemia in chronic kidney disease; R51 Headache
CPT/HCPCS: 36415; 80048; 80053; 80061; 81003; 82550; 82553; 82962; 83036; 83880; 84443; 84484; 85025; 87086; 93005; J1815; J2405; S5561

== ENCOUNTER 2017-03-29 12:26 | Inpatient (IN) | payer MEDICARE, OTHER ==
[~2017-03-29] VITALS: Ht 175.3 cm; Wt 136.1 kg
[2017-03-29 12:53] VITALS: BP 164/82
[2017-03-29 12:57] LABS: BASOPHILS % (AUTO) 1.3 % (0.0-2.0); EOSINOPHILS % (AUTO) 9.5 % (0.0-3.0); MEAN CORPUSCULAR HEMOGLOBIN 23.9 PG (27.0-31.0); MEAN CORPUSCULAR HGB CONC 29.7 G/DL (32.0-36.0); MEAN CORPUSCULAR VOLUME 81 FL (80-99); MEAN PLATELET VOLUME 8.5 FL (6.5-10.1); MONOCYTES % (AUTO) 10.6 % (1.0-10.0); NEUTROPHILS % (AUTO) 56.5 % (45.0-75.0); PLATELET COUNT 172 K/UL (150-450); RED BLOOD COUNT 4.56 M/UL (4.20-5.40); RED CELL DISTRIBUTION WIDTH 18.2 % (11.6-14.8); WHITE BLOOD COUNT 9.3 K/UL (4.8-10.8)
--- NOTE | 2017-03-29 13:09 | Emergency Room Report ---
History of Present Illness General Chief Complaint: Generalized Weakness Source: Patient, EMS Present Illness HPI [id number] presents with weakness, dizziness and fall on left knee this morning. Denies chest pain, SOB, fever/chills, nausea/vomiting, abd pain, urinary complaints. is due for HD today. Allergies: Coded Allergies: NO KNOWN ALLERGIES (Unverified Allergy, Unknown, 10/15/15) Patient History Past Medical History: DM, HTN, renal disease Past Surgical History: other - AV fistula Pertinent Family History: none Social History: Denies: alcohol use, drug use, smoking Now: No Immunizations: UTD Reviewed Nursing Documentation: PMH: Agreed, PSxH: Agreed Nursing Documentation-PMH Past Medical History: No History, Except For Hx Hypertension: Yes Hx Asthma: Yes Hx COPD: Yes Hx Diabetes: Yes Hx Cancer: No Hx Gastrointestinal Problems: Yes Hx Dialysis: Yes - T Th Sat Hx Neurological Problems: Yes Hx Peripheral Neuropathy: Yes - secondary to DM Hx Tremors: Yes Hx Vertigo: Yes Hx Dizziness: Yes Hx Syncope: Yes Hx Headaches: Yes Hx Weakness: Yes Hx Fatigue: Yes Review of Systems All Other Systems: negative except mentioned in HPI Physical Exam Vital Signs Date Time Temp Pulse Resp B/P Pulse Ox O2 Delivery O2 Flow Rate FiO2 03/29/17 12:10 98.2 67 18 133/61 97 Room Air Sp02 EP Interpretation: reviewed, normal General Appearance: normal inspection, well appearing, no apparent distress, alert, GCS 15, non-toxic, obese Head: normocephalic, atraumatic Eyes: bilateral eye EOMI, bilateral eye PERRL ENT: normal ENT inspection, hearing grossly normal, normal voice Neck: normal inspection, full range of motion, supple, no bony tend Respiratory: normal inspection, lungs clear, normal breath sounds, no respiratory distress, no retraction, no wheezing Cardiovascular #1: regular rate, rhythm, no edema Gastrointestinal: normal inspection, normal bowel sounds, non tender, soft, no guarding, no hernia Genitourinary: no CVA tenderness Musculoskeletal: normal inspection, back normal, normal range of motion, Pam' s Sign negative Neurologic: normal inspection, alert, oriented x3, responsive, veneer cutter III-XII nml as tested, motor strength/tone normal, speech normal Psychiatric: normal inspection, judgement/insight normal, mood/affect normal Skin: normal inspection, normal color, no rash Lymphatic: normal inspection Medical Decision Making Diagnostic Impression: Primary Impression: Episode of generalized weakness Additional Impression: Hyperkalemia ER Course Dizziness - VSS. Afebrile. - No focal weakness - Atraumatic - ECG with 1st degree block - H&H stable - K 5.2. ECG shows first degree block which she had previously. No peaked TW or other acute ECG changes. Given albuterol and insulin in ED to treat. - Cardiomegaly on CXR but no acute SOB or pulm congestion warranting BIPAP or urgent HD. Endorsed to Dr Lan at 137pm for tele admission and dialysis. EKG Diagnostic Results Rate: other - sinus arrthymia, 1st degree block Rhythm: NSR ST Segments: no acute changes Rhythm Strip Diag. Results EP Interpretation: yes Rate: 60 Rhythm: NSR, no PVC's, no ectopy Chest X-Ray Diagnostic Results EP Interpretation: Yes Findings: no consolidation, no effusion, no pneumothorax, other - cardiomegaly Number of Views: 1 Last Vital Signs Date Time Temp Pulse Resp B/P Pulse Ox O2 Delivery O2 Flow Rate FiO2 03/29/17 12:53 98.6 62 20 164/82 98 Room Air Status: improved Disposition: ADMITTED INPATIENT Condition: Serious Referrals: BRIE LAN (PCP) KALANI NELSON M.D. March 29, 2017 13:09
[2017-03-29 13:32] LABS: ALBUMIN/GLOBULIN RATIO 1.5 (1.0-2.7); CALCIUM 8.8 mg/dL (8.6-10.2); CREATININE 7.9 mg/dL (0.5-0.9); GLOMERULAR FILTRATION RATE 6.3 mL/min (>60); POTASSIUM 5.2 mEQ/L (3.4-4.9); TOTAL PROTEIN 7.1 g/dL (6.6-8.7)
[2017-03-29 13:41] LABS: TROPONIN I < 0.30 ng/mL (<=0.30)
[2017-03-29] MEDS ORDERED: Albuterol ud Inhalation HHN ONE (13:45)
[2017-03-29] MEDS ORDERED: XIIDRA1 EACH OP (14:14)
[2017-03-29] MEDS ORDERED: CATAPRES0.2 MG ORAL (14:14)
[2017-03-29] MEDS ORDERED: DIALYVITE 8000.8 M1 PO (14:14)
[2017-03-29] MEDS ORDERED: HYDRALAZINE HCL50 MG ORAL (14:14)
[2017-03-29] MEDS ORDERED: HUMALOG 75/255 UNIT1 SUBQ (14:14)
[2017-03-29] MEDS ORDERED: FOLIC ACID1 MG ORAL (14:14)
[2017-03-29] MEDS ORDERED: ZANTAC150 MG ORAL (14:14)
--- NOTE | 2017-03-29 14:18 | Diagnostic Imaging Report ---
Indications: Chest pain Technique: Portable AP chest Findings: Comparison: None Cardiac silhouette remains enlarged. Pulmonary vasculature remains within normal limits. Lungs and pleura remain clear. Mild calcification of the aortic arch is unchanged. IMPRESSION: No evidence of acute disease, unchanged Stable chronic changes as described
[2017-03-29] MEDS ORDERED: Zolpidem 5mg tab ORAL PRN (14:45)
[2017-03-29] MEDS ORDERED: Morphine Sulfate 2mg/ml Inj IVP PRN ×2 (14:45)
[2017-03-29] MEDS ORDERED: Mylanta II UD 30ml ORAL PRN (14:45)
[2017-03-29] MEDS ORDERED: DuoNeb 0.5-3(2.5)mg/3ml neb HHN PRN (14:45)
[2017-03-29 16:00] VITALS: BP 110/61
[2017-03-29] MEDS: HydrALAZINE 10mg Tab ORAL SCH (17:06)
[2017-03-29] MEDS: NovoLOG Insulin Flexpen SUBQ SCH ×2 (17:09→21:27)
--- NOTE | 2017-03-29 18:13 | Consultation ---
History of Present Illness General Date patient seen: March 29, 2017 Chief Complaint: Generalized Weakness Referring physician: Dr. Henning Reason for Consultation: inpatient management Present Illness HPI 61 year old female with hx of ESRF, HD, DM, morbid obesity, non-complaint, presents with weakness, dizziness and fall on left knee this morning. Denies chest pain, SOB, fever/chills, nausea/vomiting, abd pain, urinary complaints. is due for HD today. Allergies: Coded Allergies: NO KNOWN ALLERGIES (Unverified Allergy, Unknown, 10/15/15) Medication History Scheduled Acetaminophen* (Acetaminophen 325MG Tablet*), 650 MG ORAL Q6H, (Reported) Al Hydroxide/mg Hydroxide (Mag-Al Plus Suspension), 30 ML PO Q6HR, (Reported) Allopurinol* (Zyloprim*), 100 MG ORAL DAILY, (Reported) Amlodipine Besylate* (Amlodipine Besylate*), 10 MG ORAL DAILY, (Reported) Ascorbic Acid* (Ascorbic Acid*), 500 MG ORAL DAILY, (Reported) Aspirin Ec* (Aspirin Ec*), 81 MG ORAL DAILY, (Reported) Atorvastatin Calcium* (Atorvastatin Calcium*), 20 MG ORAL BEDTIME, (Reported) Clonidine Hcl* (Catapres*), 0.1 MG ORAL EVERY 8 HOURS, (Reported) Clonidine Hcl* (Catapres*), 0.2 MG ORAL EVERY 4 HOURS, (Reported) Docusate Sodium (Dok), 100 MG PO BID, (Reported) Ferrous Sulfate* (Ferrous Sulfate*), 325 MG ORAL DAILY, (Reported) Folic Acid* (Folic Acid*), 1 MG ORAL DAILY, (Reported) Folic Acid/Vitamin B Comp W-C (Dialyvite 800 Tablet), 0.8 MG PO DAILY, (Reported ) Furosemide* (Lasix*), 20 MG ORAL DAILY, (Reported) Glimepiride* (Amaryl*), 4 MG ORAL BEFORE BREAKFAST Heparin Sod (Porcine) (Heparin Sodium*), 5,000 UNITS SUBQ EVERY 12 HOURS, ( Reported) Hydralazine HCl (Hydralazine HCl), 10 MG ORAL EVERY 6 HOURS, (Reported) Hydralazine Hcl* (Hydralazine Hcl*), 50 MG ORAL EVERY 8 HOURS, (Reported) Hydrocodone Bit/Acetaminophen 5-325* ([place] 5-325*), 1 TAB ORAL Q8HR, (Reported) Insulin Detemir (Levemir Flexpen), 10 UNITS SUBQ BEDTIME Isosorbide Dinitrate (Isosorbide Dinitrate*), 30 MG ORAL BID, (Reported) Levofloxacin* (Levaquin*), 250 MG ORAL DAILY, (Reported) Lifitegrast (Xiidra), 1 EACH OP BID, (Reported) Losartan Potassium* (Losartan Potassium*), 50 MG ORAL DAILY, (Reported) Metoprolol Tartrate* (Metoprolol Tartrate*), 50 MG ORAL EVERY 12 HOURS, ( Reported) Mupirocin Nasal (Bactroban Nasal), 1 APPLIC NASAL TID, (Reported) Pantoprazole* (Pantoprazole*), 40 MG ORAL DAILY, (Reported) Ranitidine Hcl* (Ranitidine Hcl*), 50 MG IV DAILY, (Reported) Ranitidine Hcl* (Zantac*), 150 MG ORAL DAILY, (Reported) Sevelamer Carbonate (Renvela), 800 MG ORAL THREE TIMES A DAY, (Reported) Sevelamer Carbonate (Renvela), 800 MG ORAL THREE TIMES A DAY, (Reported) Scheduled PRN Acetaminophen (Tylenol), 650 MG ORAL Q4HR PRN for Mild Pain/Temp > 100.5, ( Reported) Albuterol Sulfate* (Albuterol Sulfate Hhn*), 3 ML INH Q6H PRN for Shortness of Breath, (Reported) Diphenhydramine Hcl* (Diphenhydramine Hcl*), 25 MG ORAL Q6H PRN for Itching, ( Reported) Insulin Regular, Human* (Novolin R*), 0 SUBQ AC+HS PRN for Sliding Scale, ( Reported) Morphine Sulfate* (Morphine Sulfate*), 2 MG IV Q4HR PRN for Severe Breakthru Pain (>7), (Reported) Na Phos,M-B/Na Phos,Di-Ba* (Fleet Enema*), 133 ML RECTAL DAILY PRN for Constipation, (Reported) Nitroglycerin (Nitrostat), 0.4 MG SL Q5M X3 DOSES PRN for CHEST PAIN, (Reported) Ondansetron (Zofran), 4 MG ORAL Q6H PRN for Nausea & Vomiting, (Reported) Polyethylene Glycol 3350* (Miralax*), 17 GM ORAL DAILY PRN for Constipation, ( Reported) Temazepam* (Restoril*), 15 MG ORAL BEDTIME PRN for Insomnia, (Reported) Temazepam* (Restoril*), 15 MG ORAL BEDTIME PRN for Insomnia, (Reported) Tramadol Hcl* (Ultram*), 50 MG ORAL Q6H PRN for For Pain, (Reported) Miscellaneous Medications Calcium Acetate (Calcium Acetate), 667 MG PO, (Reported) Folic Acid/Vitamin B Comp W-C (Dialyvite 800 Tablet), 0.8 MG PO, (Reported) Insulin Aspart (Novolog Flexpen), 6 SUBQ, (Reported) Insulin Human Lispro (Humalog), 0 SUBQ, (Reported) Lactulose (Lactulose*), 15 ML ORAL, (Reported) [Probiotic Digest ], (Reported) Patient History Healthcare decision maker Resuscitation status Full Code Advanced Directive on File No Past Medical/Surgical History Past Medical/Surgical History: (1) Lumbar herniated disc (2) Morbid obesity (3) Coronary artery disease (4) Hypertension (5) Blindness (6) End stage renal disease on dialysis (7) Diabetes Review of Systems All Other Systems: negative except mentioned in HPI Physical Exam General Appearance: WD/WN Lines, tubes and drains: peripheral HEENT: normocephalic, atraumatic Neck: non-tender, normal alignment Respiratory/Chest: chest wall non-tender, lungs clear Cardiovascular/Chest: normal rate Abdomen: normal bowel sounds Genitourinary/Rectal: normal genital exam Extremities: normal range of motion Last 24 Hour Vital Signs Date Time Temp Pulse Resp B/P Pulse Ox O2 Delivery O2 Flow Rate FiO2 03/29/17 17:06 110/61 03/29/17 16:52 81 03/29/17 16:00 98.6 65 17 148/85 100 Room Air 03/29/17 16:00 97.9 70 18 110/61 97 Room Air 03/29/17 14:30 71 16 Room Air 03/29/17 14:05 60 15 Room Air 03/29/17 14:04 60 15 Room Air 03/29/17 12:53 98.6 62 20 164/82 98 Room Air 03/29/17 12:10 98.2 67 18 133/61 97 Room Air Laboratory Tests Test 03/29/17 12:39 White Blood Count 9.3 K/UL (4.8-10.8) Red Blood Count 4.56 M/UL (4.20-5.40) Hemoglobin 10.9 G/DL (12.0-16.0) L Hematocrit 36.7 % (37.0-47.0) L Mean Corpuscular Volume 81 FL (80-99) Mean Corpuscular Hemoglobin 23.9 PG (27.0-31.0) L Mean Corpuscular Hemoglobin Concent 29.7 G/DL (32.0-36.0) L Red Cell Distribution Width 18.2 % (11.6-14.8) H Platelet Count 172 K/UL (150-450) Mean Platelet Volume 8.5 FL (6.5-10.1) Neutrophils (%) (Auto) 56.5 % (45.0-75.0) Lymphocytes (%) (Auto) 22.0 % (20.0-45.0) Monocytes (%) (Auto) 10.6 % (1.0-10.0) H Eosinophils (%) (Auto) 9.5 % (0.0-3.0) H Basophils (%) (Auto) 1.3 % (0.0-2.0) Sodium Level 134 mEQ/L (135-145) L Potassium Level 5.2 mEQ/L (3.4-4.9) H Chloride Level 91 mEQ/L (98-107) L Carbon Dioxide Level 21 mEQ/L (20-30) Anion Gap 22 (5-15) H Blood Urea Nitrogen 51 mg/dL (7-23) H Creatinine 7.9 mg/dL (0.5-0.9) H Estimat Glomerular Filtration Rate 6.3 mL/min (>60) Glucose Level 335 mg/dL (74-106) H Calcium Level 8.8 mg/dL (8.6-10.2) Total Bilirubin 0.3 mg/dL (0.0-1.2) Aspartate Amino Transf (AST/SGOT) 12 U/L (5-40) Alanine Aminotransferase (ALT/SGPT) 16 U/L (3-33) Alkaline Phosphatase 82 U/L (35-104) Total Creatine Kinase 96 U/L (26-140) Creatine Kinase MB 3.0 ng/mL (< 3.8) Creatine Kinase MB Relative Index 3.1 Troponin I < 0.30 ng/mL (<=0.30) Pro-B-Type Natriuretic Peptide 8975 pg/mL (0-125) H Total Protein 7.1 g/dL (6.6-8.7) Albumin 4.3 g/dL (3.5-5.2) Globulin 2.8 g/dL Albumin/Globulin Ratio 1.5 (1.0-2.7) Height (Feet): 5 Height (Inches): 9.00 Weight (Pounds): 300 Medications Current Medications Medications (Trade) Dose Ordered Sig/Josi Route PRN Reason Start Time Stop Time Status Last Admin Dose Admin Acetaminophen (Tylenol) 650 mg Q4H PRN ORAL fever 03/29/17 14:45 04/28/17 14:44 Al Hydroxide/Mg Hydroxide (Mylanta II) 30 ml Q6H PRN ORAL dyspepsia 03/29/17 14:45 04/28/17 14:44 Albuterol/ Ipratropium (DuoNeb 0.5-3(2.5)mg/3ml) 3 ml Q6H PRN HHN dyspnea 03/29/17 14:45 04/03/17 14:44 Allopurinol (Zyloprim) 100 mg DAILY ORAL 03/30/17 09:00 04/29/17 08:59 Amlodipine Besylate (Norvasc) 10 mg DAILY ORAL 03/30/17 09:00 04/29/17 08:59 Atorvastatin Calcium (Lipitor) 20 mg BEDTIME ORAL 03/29/17 21:00 04/28/17 20:59 Clonidine HCl (Catapres) 0.1 mg Q4H PRN ORAL For High Blood Pressure 03/29/17 14:45 04/28/17 14:44 Dextrose (Dextrose 50%) STAT PRN IV Hypoglycemia 03/29/17 14:45 04/28/17 14:44 Folic Acid (Folate) 1 mg DAILY ORAL 03/30/17 09:00 04/29/17 08:59 Glimepiride (Amaryl) 4 mg BEFORE BREAKFAST ORAL 03/30/17 06:30 04/29/17 06:29 Heparin Sodium (Porcine) (Heparin 5000 units/ml) 5,000 units EVERY 12 HOURS SUBQ 03/29/17 21:00 04/28/17 20:59 Hydralazine HCl (Apresoline) 10 mg EVERY 6 HOURS ORAL 03/29/17 18:00 04/28/17 17:59 03/29/17 17:06 Insulin Aspart (NovoLOG) BEFORE MEALS AND HS SUBQ 03/29/17 16:30 04/28/17 16:29 03/29/17 17:09 Insulin Detemir (Levemir) 10 units BEDTIME SUBQ 03/29/17 21:00 04/28/17 20:59 Losartan Potassium (Cozaar) 50 mg DAILY ORAL 03/30/17 09:00 04/29/17 08:59 Morphine Sulfate (Morphine Sulfate) 1 mg Q4H PRN IVP For Pain 03/29/17 14:45 04/05/17 14:44 Morphine Sulfate (Morphine Sulfate) 2 mg Q4H PRN IV Severe Breakthru Pain (>7) 03/29/17 14:45 04/05/17 14:44 Morphine Sulfate (Morphine Sulfate) 2 mg Q4H PRN IVP Moderate Breakthru Pain (5-7) 03/29/17 14:45 04/05/17 14:44 Ondansetron HCl (Zofran) 4 mg Q6H PRN IVP Nausea & Vomiting 03/29/17 14:45 04/28/17 14:44 Polyethylene Glycol (Miralax) 17 gm HSPRN PRN ORAL Constipation 03/29/17 14:45 04/28/17 14:44 Zolpidem Tartrate (Ambien) 5 mg HSPRN PRN ORAL Insomnia 03/29/17 14:45 04/28/17 14:44 Assessment/Plan Problem List: (1) Malaise and fatigue ICD Codes: R53.81 - Other malaise; R53.83 - Other fatigue SNOMED: 071597182 (2) End stage renal disease on dialysis ICD Codes: N18.6 - End stage renal failure on dialysis; Z99.2 - Dependence on renal dialysis SNOMED: 792618796 (3) Hypertension ICD Codes: I10 - Essential (primary) hypertension SNOMED: 80045032 (4) Diabetes ICD Codes: E11.9 - Type 2 diabetes mellitus without complications SNOMED: 76606254 (5) Blindness ICD Codes: H54.0 - Blindness, both eyes SNOMED: 405017345 (6) Morbid obesity ICD Codes: E66.01 - Morbid (severe) obesity due to excess calories SNOMED: 186942958, 02104789271394 Assessment/Plan Neuro evaluation respiratory treatment nephro to dialyze pt/ot sliding scale diabetic diet JONES BARAKAT March 29, 2017 18:12
[2017-03-29 20:20] VITALS: BP 139/67
--- NOTE | 2017-03-29 20:59 | History and Physical Report ---
DATE OF ADMISSION: 03/29/2017 TIME SEEN: At 2 p.m. ATTENDING PHYSICIAN: Roderick Henning D.O. CONSULTANTS: 1. Meghana Murillo M.D. 2. Demetris Squires M.D. 3. Shalom Vinson M.D. 4. Bakari Ortega M.D. BRIEF HISTORY: This is a 61-year-old female, who comes to my office apparently today got up and felt dizzy and fell down struck her left side. The patient was little weak and diagnosed with the above, being admitted to telemetry for further care. Currently slight short of breath in bed, slightly weak. No complaints. PAST MEDICAL HISTORY: End-stage renal disease, congestive heart failure, hypertension, diabetes, obesity, blindness. PAST SURGICAL HISTORY: Shunt placement, eye surgery, hernia. MEDICATIONS: Zyloprim, Norvasc, folate, Cozaar, Amaryl, Lipitor, Levemir, Apresoline, Tylenol, MiraLAX, . ALLERGIES: Denies. SOCIAL HISTORY: No smoking, no alcohol, and no intravenous drug abuse. FAMILY HISTORY: Noncontributory. REVIEW OF SYSTEMS: No chest pain. Slightly short of breath. No nausea, vomiting, or diarrhea. PHYSICAL EXAMINATION: GENERAL: Calm in bed, oriented x3, and in no acute distress. VITAL SIGNS: Show temperature is 98 degrees, pulse 71, respirations 16, and blood pressure 164/82. CARDIOVASCULAR: No murmurs. LUNGS: Distant and clear. ABDOMEN: Bowel sounds positive. Nontender and nondistended. EXTREMITIES: No cyanosis, clubbing, 1+ edema. NEUROLOGIC: The patient moves all extremities but slightly weak. Blindness noted. LABORATORY AND DIAGNOSTIC DATA: Labs at this time show hemoglobin 10.9, otherwise CBC is normal. BMP shows sodium 134, potassium 5.2, chloride 91, BUN and creatinine 51 and 7.9, glucose 335. ASSESSMENT: 1. Headache. 2. Fall. 3. Weakness. 4. Dizziness. 5. End-stage renal disease . 6. Congestive heart failure. 7. Anemia. 8. Hypertension. 9. Diabetes. 10. Obesity. PLAN: 1. Continue premedications. 2. OT/PT. 3. Dietary evaluation. 4. CBC and BMP in the morning. 5. Dialysis. 6. Troponin q 8 h. x 3. 7. EKG in the morning. 8. Resume home medications. 9. Blood pressure and blood sugar control. 10. Dietary followup. Shannon Murillo, Dr. Squires, Dr. Vinson, Dr. Santillan to followup. We will continue to follow this patient. Roderick Henning D.O. DR: Christine JOB#: [id number] CC:
[2017-03-29] MEDS: Atorvastatin 20mg tab ORAL SCH (21:22)
[2017-03-29] MEDS: Heparin 5000 units/ml inj SUBQ SCH (21:25)
[2017-03-29] MEDS: Levemir Flexpen SUBQ SCH (21:26)
[2017-03-29] MEDS: Morphine Sulfate 2mg/ml Inj IV PRN (21:29)
--- NOTE | 2017-03-29 22:41 | Nephrology Progress Note ---
Objective Objective Last 24 Hour Vital Signs Date Time Temp Pulse Resp B/P Pulse Ox O2 Delivery O2 Flow Rate FiO2 03/29/17 20:34 71 16 Room Air 03/29/17 20:20 98.0 77 20 139/67 93 Room Air 03/29/17 20:00 85 03/29/17 17:06 110/61 03/29/17 16:52 81 03/29/17 16:00 98.6 65 17 148/85 100 Room Air 03/29/17 16:00 97.9 70 18 110/61 97 Room Air 03/29/17 14:30 71 16 Room Air 03/29/17 14:05 60 15 Room Air 03/29/17 14:04 60 15 Room Air 03/29/17 12:53 98.6 62 20 164/82 98 Room Air 03/29/17 12:10 98.2 67 18 133/61 97 Room Air Laboratory Tests 03/29/17 12:39: White Blood Count 9.3, Red Blood Count 4.56, Hemoglobin 10.9L, Hematocrit 36.7L , Mean Corpuscular Volume 81, Mean Corpuscular Hemoglobin 23.9L, Mean Corpuscular Hemoglobin Concent 29.7L, Red Cell Distribution Width 18.2H, Platelet Count 172, Mean Platelet Volume 8.5, Neutrophils (%) (Auto) 56.5, Lymphocytes (%) (Auto) 22.0, Monocytes (%) (Auto) 10.6H, Eosinophils (%) (Auto) 9.5H, Basophils (%) (Auto) 1.3, Sodium Level 134L, Potassium Level 5.2H, Chloride Level 91L, Carbon Dioxide Level 21, Anion Gap 22H, Blood Urea Nitrogen 51H, Creatinine 7.9H, Estimat Glomerular Filtration Rate 6.3, Glucose Level 335H , Calcium Level 8.8, Total Bilirubin 0.3, Aspartate Amino Transf (AST/SGOT) 12, Alanine Aminotransferase (ALT/SGPT) 16, Alkaline Phosphatase 82, Total Creatine Kinase 96, Creatine Kinase MB 3.0, Creatine Kinase MB Relative Index 3.1, Troponin I < 0.30, Pro-B-Type Natriuretic Peptide 8975H, Total Protein 7.1, Albumin 4.3, Globulin 2.8, Albumin/Globulin Ratio 1.5 Height (Feet): 5 Height (Inches): 9.00 Weight (Pounds): 300 JOSE MAYA March 29, 2017 22:41
[2017-03-30] VITALS: BP 118/58
[2017-03-30] MEDS: HydrALAZINE 10mg Tab ORAL SCH ×4 (00:42→18:20)
[2017-03-30 04:30] VITALS: BP 124/76
[2017-03-30] MEDS: NovoLOG Insulin Flexpen SUBQ SCH ×4 (06:33→22:29)
[2017-03-30] MEDS: Glimepiride 4mg tab ORAL SCH (06:52)
[2017-03-30 08:00] VITALS: BP 143/82
[2017-03-30] MEDS: Allopurinol 100mg Tab ORAL SCH ×2 (09:00→11:41)
[2017-03-30] MEDS: Losartan 50mg tab ORAL SCH (09:00)
[2017-03-30] MEDS: Heparin 5000 units/ml inj SUBQ SCH ×3 (09:00→22:25)
[2017-03-30 10:34] LABS: BASOPHILS % (AUTO) 1.1 % (0.0-2.0); EOSINOPHILS % (AUTO) 10.1 % (0.0-3.0); LYMPHOCYTES % (AUTO) 21.6 % (20.0-45.0); MEAN CORPUSCULAR VOLUME 80 FL (80-99); MEAN PLATELET VOLUME 8.5 FL (6.5-10.1); MONOCYTES % (AUTO) 11.7 % (1.0-10.0); NEUTROPHILS % (AUTO) 55.4 % (45.0-75.0); PLATELET COUNT 166 K/UL (150-450); RED BLOOD COUNT 4.28 M/UL (4.20-5.40); RED CELL DISTRIBUTION WIDTH 17.9 % (11.6-14.8); WHITE BLOOD COUNT 8.9 K/UL (4.8-10.8)
[2017-03-30 11:02] LABS: HEMOGLOBIN A1C 9.2 % (< 6.0)
[2017-03-30 11:04] LABS: ALBUMIN/GLOBULIN RATIO 2.2 (1.0-2.7); CALCIUM 8.6 mg/dL (8.6-10.2); CHOLESTEROL/HDL RATIO 4.3 (3.3-4.4); CREATININE 9.9 mg/dL (0.5-0.9); GLOMERULAR FILTRATION RATE 4.8 mL/min (>60); TOTAL PROTEIN 6.2 g/dL (6.6-8.7)
[2017-03-30 11:11] LABS: THYROID STIMULATING HORMONE 0.98 uIU/mL (0.300-4.500)
[2017-03-30 11:43] VITALS: BP 116/73
[2017-03-30] MEDS: Miralax 17gm pkt ORAL PRN (12:35)
[2017-03-30] MEDS: Morphine Sulfate 2mg/ml Inj IV PRN ×2 (12:35→18:17)
--- NOTE | 2017-03-30 13:14 | General Progress Note ---
Assessment/Plan Problem List: (1) Dyspnea ICD Codes: R06.00 - Dyspnea SNOMED: 919387385 (2) Anemia ICD Codes: D64.9 - Anemia SNOMED: 013631520 (3) CHF (congestive heart failure) ICD Codes: I50.9 - Heart failure, unspecified SNOMED: 32292264 (4) Respiratory insufficiency ICD Codes: R06.89 - Respiratory insufficiency SNOMED: 443423754 (5) Obesity ICD Codes: E66.9 - Obesity SNOMED: 789921571 (6) Hypertension, uncontrolled ICD Codes: I10 - Uncontrolled hypertension SNOMED: 09700971 (7) CKD (chronic kidney disease) ICD Codes: N18.9 - Chronic kidney disease SNOMED: 548044388 (8) Renal failure ICD Codes: N19 - Unspecified kidney failure SNOMED: 86675715 (9) Diabetes ICD Codes: E11.9 - Diabetes SNOMED: 80561859 (10) Blindness of both eyes ICD Codes: H54.0 - Blindness SNOMED: 075418601 Status: stable, progressing, tolerating diet Assessment/Plan ot pt diet dialysis cbc bmp am Subjective Constitutional: Reports: weakness Allergies: Coded Allergies: NO KNOWN ALLERGIES (Unverified Allergy, Unknown, 10/15/15) All Systems: reviewed and negative except above Subjective eating ok calm Objective Last 24 Hour Vital Signs Date Time Temp Pulse Resp B/P Pulse Ox O2 Delivery O2 Flow Rate FiO2 03/30/17 11:43 98.8 66 21 116/73 97 Room Air 03/30/17 11:42 125/71 03/30/17 11:30 Room Air 03/30/17 08:25 Room Air 03/30/17 08:00 97.0 79 20 143/82 96 Room Air 03/30/17 08:00 83 03/30/17 07:51 74 18 Room Air 03/30/17 04:30 97.7 68 20 124/76 95 Room Air 03/30/17 03:52 73 03/30/17 00:42 118/58 03/30/17 00:00 98.2 71 20 118/58 Room Air 03/30/17 00:00 75 03/29/17 20:34 71 16 Room Air 03/29/17 20:20 98.0 77 20 139/67 93 Room Air 5/4/17 20:00 85 03/29/17 17:06 110/61 03/29/17 16:52 81 03/29/17 16:00 98.6 65 17 148/85 100 Room Air 03/29/17 16:00 97.9 70 18 110/61 97 Room Air 03/29/17 14:30 71 16 Room Air 03/29/17 14:05 60 15 Room Air 03/29/17 14:04 60 15 Room Air Intake and Output 03/29/17 03/30/17 19:00 07:00 Intake Total 340 ml 240 ml Balance 340 ml 240 ml Intake Oral 340 ml 240 ml Laboratory Tests 03/30/17 09:10: White Blood Count 8.9, Red Blood Count 4.28, Hemoglobin 10.3L, Hematocrit 34.2L , Mean Corpuscular Volume 80, Mean Corpuscular Hemoglobin 24.0L, Mean Corpuscular Hemoglobin Concent 30.0L, Red Cell Distribution Width 17.9H, Platelet Count 166, Mean Platelet Volume 8.5, Neutrophils (%) (Auto) 55.4, Lymphocytes (%) (Auto) 21.6, Monocytes (%) (Auto) 11.7H, Eosinophils (%) (Auto) 10.1H, Basophils (%) (Auto) 1.1, Sodium Level 133L, Potassium Level 5.0H, Chloride Level 91L, Carbon Dioxide Level 21, Anion Gap 21H, Blood Urea Nitrogen 69H, Creatinine 9.9H, Estimat Glomerular Filtration Rate 4.8, Glucose Level 280H , Hemoglobin A1c 9.2H, Calcium Level 8.6, Total Bilirubin 0.3, Aspartate Amino Transf (AST/SGOT) 10, Alanine Aminotransferase (ALT/SGPT) 12, Alkaline Phosphatase 75, Total Protein 6.2L, Albumin 4.3, Globulin 1.9, Albumin/Globulin Ratio 2.2, Triglycerides Level 211H, Cholesterol Level 126, LDL Cholesterol 55L , HDL Cholesterol 29, Cholesterol/HDL Ratio 4.3, Thyroid Stimulating Hormone ( TSH) 0.980 Height (Feet): 5 Height (Inches): 9.00 Weight (Pounds): 300 General Appearance: alert EENT: normal ENT inspection Neck: normal alignment Cardiovascular: normal peripheral pulses, normal rate, regular rhythm Respiratory/Chest: chest wall non-tender, lungs clear, decreased breath sounds Abdomen: normal bowel sounds, non tender, soft Extremities: normal inspection Edema: 1+ Arm (L), 1+ Arm (R), 1+ Leg (L), 1+ Leg (R), 1+ Pedal (L), 1+ Pedal ( R), 1+ Generalized Neurologic: responsive, motor weakness Skin: normal pigmentation, warm/dry BRIE LAN March 30, 2017 13:14
--- NOTE | 2017-03-30 13:49 | Pulmonology Progress Note ---
Assessment/Plan Problems: (1) Malaise and fatigue (2) End stage renal disease on dialysis (3) Hypertension (4) Diabetes (5) Blindness (6) Morbid obesity Assessment/Plan Respiratory treatment tolerating diet got hd sliding scale diabetic diet pt/ot Subjective ROS Limited/Unobtainable: No Constitutional: Reports: no symptoms HEENT: Repors: no symptoms Respiratory: Reports: no symptoms Allergies: Coded Allergies: NO KNOWN ALLERGIES (Unverified Allergy, Unknown, 10/15/15) Objective Last 24 Hour Vital Signs Date Time Temp Pulse Resp B/P Pulse Ox O2 Delivery O2 Flow Rate FiO2 03/30/17 11:43 98.8 66 21 116/73 97 Room Air 03/30/17 11:42 125/71 03/30/17 11:30 Room Air 03/30/17 08:25 Room Air 03/30/17 08:00 97.0 79 20 143/82 96 Room Air 03/30/17 08:00 83 03/30/17 07:51 74 18 Room Air 03/30/17 04:30 97.7 68 20 124/76 95 Room Air 03/30/17 03:52 73 03/30/17 00:42 118/58 03/30/17 00:00 98.2 71 20 118/58 Room Air 03/30/17 00:00 75 03/29/17 20:34 71 16 Room Air 03/29/17 20:20 98.0 77 20 139/67 93 Room Air 03/29/17 20:00 85 03/29/17 17:06 110/61 03/29/17 16:52 81 03/29/17 16:00 98.6 65 17 148/85 100 Room Air 03/29/17 16:00 97.9 70 18 110/61 97 Room Air 03/29/17 14:30 71 16 Room Air 03/29/17 14:05 60 15 Room Air 03/29/17 14:04 60 15 Room Air Intake and Output 03/29/17 03/30/17 19:00 07:00 Intake Total 340 ml 240 ml Balance 340 ml 240 ml Intake Oral 340 ml 240 ml General Appearance: WD/WN HEENT: normocephalic, atraumatic Respiratory/Chest: chest wall non-tender, lungs clear Breasts: no masses Cardiovascular: normal peripheral pulses Abdomen: normal bowel sounds, soft, non tender Genitourinary: normal external genitalia Extremities: no cyanosis Skin: no rash Neurologic/Psychiatric: grants analyst II-XII grossly normal Lymphatic: no neck adenopathy Laboratory Tests 03/30/17 09:10: White Blood Count 8.9, Red Blood Count 4.28, Hemoglobin 10.3L, Hematocrit 34.2L , Mean Corpuscular Volume 80, Mean Corpuscular Hemoglobin 24.0L, Mean Corpuscular Hemoglobin Concent 30.0L, Red Cell Distribution Width 17.9H, Platelet Count 166, Mean Platelet Volume 8.5, Neutrophils (%) (Auto) 55.4, Lymphocytes (%) (Auto) 21.6, Monocytes (%) (Auto) 11.7H, Eosinophils (%) (Auto) 10.1H, Basophils (%) (Auto) 1.1, Sodium Level 133L, Potassium Level 5.0H, Chloride Level 91L, Carbon Dioxide Level 21, Anion Gap 21H, Blood Urea Nitrogen 69H, Creatinine 9.9H, Estimat Glomerular Filtration Rate 4.8, Glucose Level 280H , Hemoglobin A1c 9.2H, Calcium Level 8.6, Total Bilirubin 0.3, Aspartate Amino Transf (AST/SGOT) 10, Alanine Aminotransferase (ALT/SGPT) 12, Alkaline Phosphatase 75, Total Protein 6.2L, Albumin 4.3, Globulin 1.9, Albumin/Globulin Ratio 2.2, Triglycerides Level 211H, Cholesterol Level 126, LDL Cholesterol 55L , HDL Cholesterol 29, Cholesterol/HDL Ratio 4.3, Thyroid Stimulating Hormone ( TSH) 0.980 Current Medications Medications (Trade) Dose Ordered Sig/Josi Route PRN Reason Start Time Stop Time Status Last Admin Dose Admin Acetaminophen (Tylenol) 650 mg Q4H PRN ORAL fever 03/29/17 14:45 04/28/17 14:44 Al Hydroxide/Mg Hydroxide (Mylanta II) 30 ml Q6H PRN ORAL dyspepsia 03/29/17 14:45 04/28/17 14:44 03/30/17 00:42 Albuterol/ Ipratropium (DuoNeb 0.5-3(2.5)mg/3ml) 3 ml Q6H PRN HHN dyspnea 03/29/17 14:45 04/03/17 14:44 Allopurinol (Zyloprim) 100 mg DAILY ORAL 03/30/17 09:00 04/29/17 08:59 03/30/17 11:41 Amlodipine Besylate (Norvasc) 10 mg DAILY ORAL 03/30/17 09:00 04/29/17 08:59 Atorvastatin Calcium (Lipitor) 20 mg BEDTIME ORAL 03/29/17 21:00 04/28/17 20:59 03/29/17 21:22 Clonidine HCl (Catapres) 0.1 mg Q4H PRN ORAL For High Blood Pressure 03/29/17 14:45 04/28/17 14:44 Dextrose (Dextrose 50%) STAT PRN IV Hypoglycemia 03/29/17 14:45 04/28/17 14:44 Folic Acid (Folate) 1 mg DAILY ORAL 03/30/17 09:00 04/29/17 08:59 03/30/17 11:42 Glimepiride (Amaryl) 4 mg BEFORE BREAKFAST ORAL 03/30/17 06:30 04/29/17 06:29 03/30/17 06:52 Heparin Sodium (Porcine) (Heparin 5000 units/ml) 5,000 units EVERY 12 HOURS SUBQ 03/29/17 21:00 04/28/17 20:59 03/30/17 11:43 Hydralazine HCl (Apresoline) 10 mg EVERY 6 HOURS ORAL 03/29/17 18:00 04/28/17 17:59 03/30/17 11:42 Insulin Aspart (NovoLOG) BEFORE MEALS AND HS SUBQ 03/29/17 16:30 04/28/17 16:29 03/30/17 11:44 Insulin Detemir (Levemir) 10 units BEDTIME SUBQ 03/29/17 21:00 04/28/17 20:59 03/29/17 21:26 Losartan Potassium (Cozaar) 50 mg DAILY ORAL 03/30/17 09:00 04/29/17 08:59 Morphine Sulfate (Morphine Sulfate) 1 mg Q4H PRN IVP For Pain 03/29/17 14:45 04/05/17 14:44 Morphine Sulfate (Morphine Sulfate) 2 mg Q4H PRN IV Severe Breakthru Pain (>7) 03/29/17 14:45 04/05/17 14:44 03/30/17 12:35 Morphine Sulfate (Morphine Sulfate) 2 mg Q4H PRN IVP Moderate Breakthru Pain (5-7) 03/29/17 14:45 04/05/17 14:44 Ondansetron HCl (Zofran) 4 mg Q6H PRN IVP Nausea & Vomiting 03/29/17 14:45 04/28/17 14:44 Polyethylene Glycol (Miralax) 17 gm HSPRN PRN ORAL Constipation 03/29/17 14:45 04/28/17 14:44 03/30/17 12:35 Zolpidem Tartrate (Ambien) 5 mg HSPRN PRN ORAL Insomnia 03/29/17 14:45 04/28/17 14:44 JONES BARAKAT March 30, 2017 13:49
--- NOTE | 2017-03-30 15:00 | Cardiac Electrophysiology PN ---
Subjective Subjective [id number] Objective Last 24 Hour Vital Signs Date Time Temp Pulse Resp B/P Pulse Ox O2 Delivery O2 Flow Rate FiO2 03/30/17 14:42 160/85 03/30/17 11:43 98.8 66 21 116/73 97 Room Air 03/30/17 11:42 125/71 03/30/17 11:30 Room Air 03/30/17 08:25 Room Air 03/30/17 08:00 97.0 79 20 143/82 96 Room Air 03/30/17 08:00 83 03/30/17 07:51 74 18 Room Air 03/30/17 04:30 97.7 68 20 124/76 95 Room Air 03/30/17 03:52 73 03/30/17 00:42 118/58 03/30/17 00:00 98.2 71 20 118/58 Room Air 03/30/17 00:00 75 03/29/17 20:34 71 16 Room Air 03/29/17 20:20 98.0 77 20 139/67 93 Room Air 03/29/17 20:00 85 03/29/17 17:06 110/61 03/29/17 16:52 81 03/29/17 16:00 98.6 65 17 148/85 100 Room Air 03/29/17 16:00 97.9 70 18 110/61 97 Room Air Intake and Output 03/29/17 03/30/17 19:00 07:00 Intake Total 340 ml 240 ml Balance 340 ml 240 ml Intake Oral 340 ml 240 ml Laboratory Tests Test 03/30/17 09:10 White Blood Count 8.9 K/UL (4.8-10.8) Red Blood Count 4.28 M/UL (4.20-5.40) Hemoglobin 10.3 G/DL (12.0-16.0) L Hematocrit 34.2 % (37.0-47.0) L Mean Corpuscular Volume 80 FL (80-99) Mean Corpuscular Hemoglobin 24.0 PG (27.0-31.0) L Mean Corpuscular Hemoglobin Concent 30.0 G/DL (32.0-36.0) L Red Cell Distribution Width 17.9 % (11.6-14.8) H Platelet Count 166 K/UL (150-450) Mean Platelet Volume 8.5 FL (6.5-10.1) Neutrophils (%) (Auto) 55.4 % (45.0-75.0) Lymphocytes (%) (Auto) 21.6 % (20.0-45.0) Monocytes (%) (Auto) 11.7 % (1.0-10.0) H Eosinophils (%) (Auto) 10.1 % (0.0-3.0) H Basophils (%) (Auto) 1.1 % (0.0-2.0) Sodium Level 133 mEQ/L (135-145) L Potassium Level 5.0 mEQ/L (3.4-4.9) H Chloride Level 91 mEQ/L (98-107) L Carbon Dioxide Level 21 mEQ/L (20-30) Anion Gap 21 (5-15) H Blood Urea Nitrogen 69 mg/dL (7-23) H Creatinine 9.9 mg/dL (0.5-0.9) H Estimat Glomerular Filtration Rate 4.8 mL/min (>60) Glucose Level 280 mg/dL (74-106) H Hemoglobin A1c 9.2 % (< 6.0) H Calcium Level 8.6 mg/dL (8.6-10.2) Total Bilirubin 0.3 mg/dL (0.0-1.2) Aspartate Amino Transf (AST/SGOT) 10 U/L (5-40) Alanine Aminotransferase (ALT/SGPT) 12 U/L (3-33) Alkaline Phosphatase 75 U/L (35-104) Total Protein 6.2 g/dL (6.6-8.7) L Albumin 4.3 g/dL (3.5-5.2) Globulin 1.9 g/dL Albumin/Globulin Ratio 2.2 (1.0-2.7) Triglycerides Level 211 mg/dL (< 150) H Cholesterol Level 126 mg/dL (< 200) LDL Cholesterol 55 mg/dL (60-99) L HDL Cholesterol 29 mg/dL (> 60) Cholesterol/HDL Ratio 4.3 (3.3-4.4) Thyroid Stimulating Hormone (TSH) 0.980 uIU/mL (0.300-4.500) ARNIE ALVARENGA March 30, 2017 15:00
--- NOTE | 2017-03-30 15:41 | Nephrology Progress Note ---
Assessment/Plan Problem List: (1) ACS (acute coronary syndrome) (2) Accelerated hypertension (3) CHF (congestive heart failure) (4) ESRD (end stage renal disease) on dialysis (5) Morbid obesity (6) Blindness (7) Diabetes (8) Fall Plan Continue HD Fall precautions Monitor lytes, correct with HD Free water restriction Cardiology f/u Pulmo f/u AM labs Subjective Constitutional: Denies: chills, diaphoresis, fever, malaise, no symptoms, other , weakness HEENT: Denies: blurred vision, double vision, ear discharge, ear pain, eye pain , mouth pain, mouth swelling, no symptoms, nose congestion, nose pain, other, tearing, throat pain, throat swelling Genitourinary: Denies: burning, discharge, flank pain, frequency, hematuria, incontinence, no symptoms, other, pain, urgency Neurologic/Psychiatric: Denies: anxiety, depressed, emotional problems, headache, no symptoms, numbness, other, paresthesia, pre-existing deficit, seizure, tingling, tremors, weakness Subjective In bed, in no apparent distress, states that she feels better, s/p HD Objective Objective Last 24 Hour Vital Signs Date Time Temp Pulse Resp B/P Pulse Ox O2 Delivery O2 Flow Rate FiO2 03/30/17 14:42 160/85 03/30/17 11:43 98.8 66 21 116/73 97 Room Air 03/30/17 11:42 125/71 03/30/17 11:30 Room Air 03/30/17 08:25 Room Air 03/30/17 08:00 97.0 79 20 143/82 96 Room Air 03/30/17 08:00 83 03/30/17 07:51 74 18 Room Air 03/30/17 04:30 97.7 68 20 124/76 95 Room Air 03/30/17 03:52 73 03/30/17 00:42 118/58 03/30/17 00:00 98.2 71 20 118/58 Room Air 03/30/17 00:00 75 03/29/17 20:34 71 16 Room Air 03/29/17 20:20 98.0 77 20 139/67 93 Room Air 03/29/17 20:00 85 03/29/17 17:06 110/61 03/29/17 16:52 81 03/29/17 16:00 98.6 65 17 148/85 100 Room Air 03/29/17 16:00 97.9 70 18 110/61 97 Room Air Intake and Output 03/29/17 03/30/17 19:00 07:00 Intake Total 340 ml 240 ml Balance 340 ml 240 ml Intake Oral 340 ml 240 ml Laboratory Tests 03/30/17 09:10: White Blood Count 8.9, Red Blood Count 4.28, Hemoglobin 10.3L, Hematocrit 34.2L , Mean Corpuscular Volume 80, Mean Corpuscular Hemoglobin 24.0L, Mean Corpuscular Hemoglobin Concent 30.0L, Red Cell Distribution Width 17.9H, Platelet Count 166, Mean Platelet Volume 8.5, Neutrophils (%) (Auto) 55.4, Lymphocytes (%) (Auto) 21.6, Monocytes (%) (Auto) 11.7H, Eosinophils (%) (Auto) 10.1H, Basophils (%) (Auto) 1.1, Sodium Level 133L, Potassium Level 5.0H, Chloride Level 91L, Carbon Dioxide Level 21, Anion Gap 21H, Blood Urea Nitrogen 69H, Creatinine 9.9H, Estimat Glomerular Filtration Rate 4.8, Glucose Level 280H , Hemoglobin A1c 9.2H, Calcium Level 8.6, Total Bilirubin 0.3, Aspartate Amino Transf (AST/SGOT) 10, Alanine Aminotransferase (ALT/SGPT) 12, Alkaline Phosphatase 75, Total Protein 6.2L, Albumin 4.3, Globulin 1.9, Albumin/Globulin Ratio 2.2, Triglycerides Level 211H, Cholesterol Level 126, LDL Cholesterol 55L , HDL Cholesterol 29, Cholesterol/HDL Ratio 4.3, Thyroid Stimulating Hormone ( TSH) 0.980 Height (Feet): 5 Height (Inches): 9.00 Weight (Pounds): 300 General Appearance: no apparent distress, alert EENT: normal ENT inspection Neck: non-tender, normal alignment, supple Cardiovascular: regular rhythm, regularly irregular, no JVD Respiratory/Chest: normal breath sounds, no respiratory distress Abdomen: non tender, soft, no organomegaly Neurologic: alert, oriented x 3, responsive, normal mood/affect Kusum Flores N.P. March 30, 2017 15:41
[2017-03-30 16:00] VITALS: BP 135/79
[2017-03-30 20:35] VITALS: BP 134/80
[2017-03-30] MEDS ORDERED: DiphenhydrAMINE 50mg/ml Inj IVP PRN (21:00)
--- NOTE | 2017-03-30 21:49 | Consultation ---
DATE OF CONSULTATION: 03/30/2017 CARDIOLOGY CONSULTATION: CONSULTING PHYSICIAN: Shalom Vinson M.D. ATTENDING PHYSICIAN: Roderick Henning M.D. REFERRING PHYSICIAN: Roderick Henning M.D. REASON FOR CONSULTATION: Management of hypertension and hypertensive heart disease. HISTORY OF PRESENT ILLNESS: The patient is a 61-year-old lady with hypertension, diabetes, morbid obesity, and end-stage renal disease, on hemodialysis, who presents to the emergency room with generalized weakness and fall on the left knee. The patient also is chronically blind. The patient was due for dialysis and underwent hemodialysis today. Cardiology consultation was obtained for further evaluation and management. PAST MEDICAL HISTORY: 1. Hypertension. 2. Hypertensive heart disease. 3. Diabetes. 4. Morbid obesity. 5. End-stage renal disease, on hemodialysis. MEDICATIONS: 1. Norvasc 10 mg daily. 2. Aspirin 81 mg daily. 3. Lipitor 20 mg daily. 4. Clonidine 0.1 mg every eight hours. 5. Lasix. 6. Hydralazine. 7. Insulin. 8. Isosorbide dinitrate. 9. Losartan. 10. Metoprolol 50 mg b.i.d. FAMILY HISTORY: Noncontributory. REVIEW OF SYSTEMS: Review of systems was performed and was negative other than what is mentioned in the history of present illness. PHYSICAL EXAMINATION: VITAL SIGNS: Blood pressure is 160/85, pulse 60, respirations 20, and temperature 98.8 degrees. HEENT: Head and neck showed no JVD. LUNGS: Decreased breath sounds. CARDIOVASCULAR: Shows regular S1 and S2 with no gallop or murmur. ABDOMEN: Soft and morbidly obese. EXTREMITIES: A 1+ pitting edema in the ankles. She has dialysis access in her right arm. LABORATORY DATA: White count is 8.9, hemoglobin 10.2, hematocrit 34.2, and platelet count 166,000. Sodium is 132, potassium 5.0, BUN 60, creatinine 9.9, and glucose 280. BNP is 8975. Vancomycin level is 16.7. INR is 1.1. ASSESSMENT AND PLAN: 1. Congestive heart failure, hypertensive heart disease, and diastolic dysfunction. We will get an echocardiogram to evaluate for ejection fraction and wall motion abnormality. Continue dialysis in management of the patient's hypertension. 2. Hypertensive heart disease. Continue Norvasc 10 mg daily, losartan 50 mg daily, and p.r.n. hydralazine at this time as well as p.r.n. clonidine. 3. End-stage renal disease, on hemodialysis. 4. Diabetes, on insulin. 5. Hyperlipidemia, on Lipitor. Thank you very much, Dr. Henning, for allowing me to participate in the care of this patient. Please do not hesitate to contact me for any questions regarding my evaluation. Shalom Vinson M.D. DR: Rosangela JOB#: [id number] CC:
[2017-03-30] MEDS: Atorvastatin 20mg tab ORAL SCH (22:22)
[2017-03-30] MEDS: Levemir Flexpen SUBQ SCH (22:27)
[2017-03-31] VITALS (7 sets, daily range): BP systolic 130–181; BP diastolic 56–99
[2017-03-31] MEDS: HydrALAZINE 10mg Tab ORAL SCH ×3 (00:11→12:21)
[2017-03-31] MEDS: Glimepiride 4mg tab ORAL SCH (06:00)
[2017-03-31] MEDS: NovoLOG Insulin Flexpen SUBQ SCH ×4 (06:49→21:43)
--- NOTE | 2017-03-31 08:40 | General Progress Note ---
Assessment/Plan Problem List: (1) Dyspnea ICD Codes: R06.00 - Dyspnea SNOMED: 924773174 (2) Anemia ICD Codes: D64.9 - Anemia SNOMED: 540502760 (3) CHF (congestive heart failure) ICD Codes: I50.9 - Heart failure, unspecified SNOMED: 12799932 (4) Respiratory insufficiency ICD Codes: R06.89 - Respiratory insufficiency SNOMED: 342007708 (5) Obesity ICD Codes: E66.9 - Obesity SNOMED: 045906333 (6) Hypertension, uncontrolled ICD Codes: I10 - Uncontrolled hypertension SNOMED: 13496143 (7) CKD (chronic kidney disease) ICD Codes: N18.9 - Chronic kidney disease SNOMED: 734050194 (8) Renal failure ICD Codes: N19 - Unspecified kidney failure SNOMED: 36379716 (9) Diabetes ICD Codes: E11.9 - Diabetes SNOMED: 05491024 (10) Blindness of both eyes ICD Codes: H54.0 - Blindness SNOMED: 938161844 Status: stable, progressing, tolerating diet Assessment/Plan ot pt diet dialysis cbc bmp am Subjective Constitutional: Reports: weakness Respiratory: Reports: shortness of breath Allergies: Coded Allergies: NO KNOWN ALLERGIES (Unverified Allergy, Unknown, 10/15/15) All Systems: reviewed and negative except above Subjective sleepy calm Objective Last 24 Hour Vital Signs Date Time Temp Pulse Resp B/P Pulse Ox O2 Delivery O2 Flow Rate FiO2 03/31/17 07:46 97.0 67 18 143/73 96 Room Air 03/31/17 06:00 130/62 03/31/17 04:07 98.5 79 19 130/62 94 Room Air 03/31/17 04:00 72 03/31/17 00:11 134/80 03/31/17 00:11 98.2 74 18 132/56 92 Room Air 03/31/17 00:00 72 03/30/17 20:35 98.2 73 19 134/80 94 Room Air 03/30/17 20:00 68 03/30/17 19:12 78 18 Room Air 03/30/17 18:20 135/79 03/30/17 16:00 72 03/30/17 16:00 96.8 78 20 135/79 96 Room Air 03/30/17 14:42 160/85 03/30/17 12:00 72 03/30/17 11:43 98.8 66 21 116/73 97 Room Air 03/30/17 11:42 125/71 03/30/17 11:30 Room Air Intake and Output 03/30/17 03/31/17 19:00 07:00 Intake Total 600 ml Output Total 3080 ml Balance -2480 ml Intake Oral 600 ml Output Hemodialysis UF 3080 ml # Voids 2 # Bowel Movements 1 Laboratory Tests 03/30/17 09:10: White Blood Count 8.9, Red Blood Count 4.28, Hemoglobin 10.3L, Hematocrit 34.2L , Mean Corpuscular Volume 80, Mean Corpuscular Hemoglobin 24.0L, Mean Corpuscular Hemoglobin Concent 30.0L, Red Cell Distribution Width 17.9H, Platelet Count 166, Mean Platelet Volume 8.5, Neutrophils (%) (Auto) 55.4, Lymphocytes (%) (Auto) 21.6, Monocytes (%) (Auto) 11.7H, Eosinophils (%) (Auto) 10.1H, Basophils (%) (Auto) 1.1, Sodium Level 133L, Potassium Level 5.0H, Chloride Level 91L, Carbon Dioxide Level 21, Anion Gap 21H, Blood Urea Nitrogen 69H, Creatinine 9.9H, Estimat Glomerular Filtration Rate 4.8, Glucose Level 280H , Hemoglobin A1c 9.2H, Calcium Level 8.6, Total Bilirubin 0.3, Aspartate Amino Transf (AST/SGOT) 10, Alanine Aminotransferase (ALT/SGPT) 12, Alkaline Phosphatase 75, Total Protein 6.2L, Albumin 4.3, Globulin 1.9, Albumin/Globulin Ratio 2.2, Triglycerides Level 211H, Cholesterol Level 126, LDL Cholesterol 55L , HDL Cholesterol 29, Cholesterol/HDL Ratio 4.3, Thyroid Stimulating Hormone ( TSH) 0.980 03/31/17 06:55: White Blood Count [Pending], Red Blood Count [Pending], Hemoglobin [Pending], Hematocrit [Pending], Mean Corpuscular Volume [Pending], Mean Corpuscular Hemoglobin [Pending], Mean Corpuscular Hemoglobin Concent [Pending], Red Cell Distribution Width [Pending], Platelet Count [Pending], Mean Platelet Volume [ Pending], Neutrophils (%) (Auto) [Pending], Lymphocytes (%) (Auto) [Pending], Monocytes (%) (Auto) [Pending], Eosinophils (%) (Auto) [Pending], Basophils (%) (Auto) [Pending], Sodium Level [Pending], Potassium Level [Pending], Chloride Level [Pending], Carbon Dioxide Level [Pending], Blood Urea Nitrogen [Pending], Creatinine [Pending], Estimat Glomerular Filtration Rate [Pending], Glucose Level [Pending], Calcium Level [Pending], Phosphorus Level [Pending], Magnesium Level [Pending], Troponin I [Pending], Pro-B-Type Natriuretic Peptide [Pending] , Free Thyroxine [Pending] Height (Feet): 5 Height (Inches): 9.00 Weight (Pounds): 300 General Appearance: lethargic EENT: normal ENT inspection Neck: normal alignment Cardiovascular: normal peripheral pulses, normal rate, regular rhythm Respiratory/Chest: chest wall non-tender, lungs clear, decreased breath sounds Abdomen: normal bowel sounds, non tender, soft Extremities: normal inspection Edema: 1+ Arm (L), 1+ Arm (R), 1+ Leg (L), 1+ Leg (R), 1+ Pedal (L), 1+ Pedal ( R), 1+ Generalized Edema: trace edema Neurologic: responsive, motor weakness BRIE LAN March 31, 2017 08:40
[2017-03-31 08:42] LABS: BASOPHILS % (AUTO) 1.1 % (0.0-2.0); EOSINOPHILS % (AUTO) 10.7 % (0.0-3.0); LYMPHOCYTES % (AUTO) 27.3 % (20.0-45.0); MEAN CORPUSCULAR HEMOGLOBIN 24.2 PG (27.0-31.0); MEAN CORPUSCULAR HGB CONC 29.1 G/DL (32.0-36.0); MEAN CORPUSCULAR VOLUME 83 FL (80-99); MEAN PLATELET VOLUME 7.8 FL (6.5-10.1); MONOCYTES % (AUTO) 12.5 % (1.0-10.0); NEUTROPHILS % (AUTO) 48.5 % (45.0-75.0); PLATELET COUNT 130 K/UL (150-450); RED BLOOD COUNT 4.59 M/UL (4.20-5.40); RED CELL DISTRIBUTION WIDTH 18.3 % (11.6-14.8); WHITE BLOOD COUNT 7.2 K/UL (4.8-10.8)
[2017-03-31] MEDS: Losartan 50mg tab ORAL SCH (08:43)
[2017-03-31] MEDS: Allopurinol 100mg Tab ORAL SCH (08:43)
[2017-03-31] MEDS: Heparin 5000 units/ml inj SUBQ SCH ×2 (08:44→20:40)
[2017-03-31 08:54] LABS: CALCIUM 8.9 mg/dL (8.6-10.2); CREATININE 8.1 mg/dL (0.5-0.9); GLOMERULAR FILTRATION RATE 6.1 mL/min (>60)
[2017-03-31 09:28] LABS: MAGNESIUM 2.4 mg/dL (1.7-2.5); PHOSPHORUS 5.3 mg/dL (2.5-4.8)
[2017-03-31 09:31] LABS: TROPONIN I < 0.30 ng/mL (<=0.30)
[2017-03-31] MEDS: Miralax 17gm pkt ORAL PRN (10:19)
[2017-03-31] MEDS: Morphine Sulfate 2mg/ml Inj IV PRN ×3 (10:19→21:21)
--- NOTE | 2017-03-31 16:50 | Cardiac Electrophysiology PN ---
Assessment/Plan Assessment/Plan 1. Congestive heart failure due to hypertensive heart disease and diastolic dysfunction. Echocardiogram showed EF 55%. Continue dialysis. 2. Hypertensive heart disease. Continue Norvasc 10 mg daily, losartan 50 mg daily and HD. Also on p.r.n. hydralazine and p.r.n.clonidine. 3. End-stage renal disease, on hemodialysis. 4. Diabetes, on insulin. 5. Hyperlipidemia, on Lipitor. DW RN Subjective Subjective Just completed her dialysis. Feeling better. No chest pain or SOB. Objective Last 24 Hour Vital Signs Date Time Temp Pulse Resp B/P Pulse Ox O2 Delivery O2 Flow Rate FiO2 03/31/17 15:36 97.7 78 18 181/99 99 Room Air 03/31/17 14:53 Room Air 03/31/17 12:21 147/72 03/31/17 12:00 78 03/31/17 11:23 97.7 73 18 147/72 97 Room Air 03/31/17 10:50 Room Air 03/31/17 08:43 143/73 03/31/17 08:43 67 143/73 03/31/17 08:00 72 03/31/17 07:46 97.0 67 18 143/73 96 Room Air 03/31/17 06:00 130/62 03/31/17 04:07 98.5 79 19 130/62 94 Room Air 03/31/17 04:00 72 03/31/17 00:11 134/80 03/31/17 00:11 98.2 74 18 132/56 92 Room Air 03/31/17 00:00 72 03/30/17 20:35 98.2 73 19 134/80 94 Room Air 03/30/17 20:00 68 03/30/17 19:12 78 18 Room Air 03/30/17 18:20 135/79 Intake and Output 03/30/17 03/31/17 19:00 07:00 Intake Total 600 ml Output Total 3080 ml Balance -2480 ml Intake Oral 600 ml Hemodialysis UF 3080 ml # Voids 2 # Bowel Movements 1 Laboratory Tests Test 03/31/17 06:55 White Blood Count 7.2 K/UL (4.8-10.8) Red Blood Count 4.59 M/UL (4.20-5.40) Hemoglobin 11.1 G/DL (12.0-16.0) L Hematocrit 38.2 % (37.0-47.0) Mean Corpuscular Volume 83 FL (80-99) Mean Corpuscular Hemoglobin 24.2 PG (27.0-31.0) L Mean Corpuscular Hemoglobin Concent 29.1 G/DL (32.0-36.0) L Red Cell Distribution Width 18.3 % (11.6-14.8) H Platelet Count 130 K/UL (150-450) L Mean Platelet Volume 7.8 FL (6.5-10.1) Neutrophils (%) (Auto) 48.5 % (45.0-75.0) Lymphocytes (%) (Auto) 27.3 % (20.0-45.0) Monocytes (%) (Auto) 12.5 % (1.0-10.0) H Eosinophils (%) (Auto) 10.7 % (0.0-3.0) H Basophils (%) (Auto) 1.1 % (0.0-2.0) Sodium Level 137 mEQ/L (135-145) Potassium Level 5.0 mEQ/L (3.4-4.9) H Chloride Level 93 mEQ/L (98-107) L Carbon Dioxide Level 26 mEQ/L (20-30) Anion Gap 18 (5-15) H Blood Urea Nitrogen 57 mg/dL (7-23) H Creatinine 8.1 mg/dL (0.5-0.9) H Estimat Glomerular Filtration Rate 6.1 mL/min (>60) Glucose Level 170 mg/dL (74-106) #H Calcium Level 8.9 mg/dL (8.6-10.2) Phosphorus Level 5.3 mg/dL (2.5-4.8) H Magnesium Level 2.4 mg/dL (1.7-2.5) Troponin I < 0.30 ng/mL (<=0.30) Pro-B-Type Natriuretic Peptide 6259 pg/mL (0-125) H Free Thyroxine 1.24 ng/dL (0.86-1.85) Objective HEENT: Head and neck showed no JVD. LUNGS: Decreased breath sounds. CARDIOVASCULAR: Shows regular S1 and S2 with no gallop or murmur. ABDOMEN: Soft and morbidly obese. EXTREMITIES: A 1+ pitting edema in the ankles. She has dialysis access in her right arm. ARNIE ALVARENGA March 31, 2017 16:50
--- NOTE | 2017-03-31 17:42 | Cardiology Report ---
APPROVED REPORT EKG Measurement Heart [id number] Sinus rhythm with sinus arrhythmia with 1st degree AV block Low voltage QRS Cannot rule out Anterior infarct, age undetermined Abnormal ECG
--- NOTE | 2017-03-31 18:43 | Nephrology Progress Note ---
Assessment/Plan Problem List: (1) ACS (acute coronary syndrome) (2) Accelerated hypertension (3) CHF (congestive heart failure) (4) ESRD (end stage renal disease) on dialysis (5) Morbid obesity (6) Blindness (7) Diabetes (8) Fall Plan s/p HD Fall precautions Monitor lytes, correct with HD Free water restriction Cardiology f/u Pulmo f/u AM labs DC plan Subjective Constitutional: Denies: chills, diaphoresis, fever, malaise, no symptoms, other , weakness HEENT: Denies: blurred vision, double vision, ear discharge, ear pain, eye pain , mouth pain, mouth swelling, no symptoms, nose congestion, nose pain, other, tearing, throat pain, throat swelling Genitourinary: Denies: burning, discharge, flank pain, frequency, hematuria, incontinence, no symptoms, other, pain, urgency Neurologic/Psychiatric: Denies: anxiety, depressed, emotional problems, headache, no symptoms, numbness, other, paresthesia, pre-existing deficit, seizure, tingling, tremors, weakness Subjective In bed, in no apparent distress, states that she feels better, s/p HD Objective Objective Last 24 Hour Vital Signs Date Time Temp Pulse Resp B/P Pulse Ox O2 Delivery O2 Flow Rate FiO2 03/31/17 18:39 97.9 77 20 164/85 93 Room Air 03/31/17 16:39 181/99 03/31/17 16:00 71 03/31/17 15:36 97.7 78 18 181/99 99 Room Air 03/31/17 14:53 Room Air 03/31/17 12:21 147/72 03/31/17 12:00 78 03/31/17 11:23 97.7 73 18 147/72 97 Room Air 03/31/17 10:50 Room Air 03/31/17 08:43 143/73 03/31/17 08:43 67 143/73 03/31/17 08:00 72 03/31/17 07:46 97.0 67 18 143/73 96 Room Air 03/31/17 07:30 71 18 Room Air 03/31/17 06:00 130/62 03/31/17 04:07 98.5 79 19 130/62 94 Room Air 03/31/17 04:00 72 03/31/17 00:11 134/80 03/31/17 00:11 98.2 74 18 132/56 92 Room Air 03/31/17 00:00 72 03/30/17 20:35 98.2 73 19 134/80 94 Room Air 03/30/17 20:00 68 03/30/17 19:12 78 18 Room Air Intake and Output 03/30/17 03/31/17 19:00 07:00 Intake Total 600 ml Output Total 3080 ml Balance -2480 ml Intake Oral 600 ml Hemodialysis UF 3080 ml # Voids 2 # Bowel Movements 1 Laboratory Tests 03/31/17 06:55: White Blood Count 7.2, Red Blood Count 4.59, Hemoglobin 11.1L, Hematocrit 38.2, Mean Corpuscular Volume 83, Mean Corpuscular Hemoglobin 24.2L, Mean Corpuscular Hemoglobin Concent 29.1L, Red Cell Distribution Width 18.3H, Platelet Count 130L , Mean Platelet Volume 7.8, Neutrophils (%) (Auto) 48.5, Lymphocytes (%) (Auto) 27.3, Monocytes (%) (Auto) 12.5H, Eosinophils (%) (Auto) 10.7H, Basophils (%) ( Auto) 1.1, Sodium Level 137, Potassium Level 5.0H, Chloride Level 93L, Carbon Dioxide Level 26, Anion Gap 18H, Blood Urea Nitrogen 57H, Creatinine 8.1H, Estimat Glomerular Filtration Rate 6.1, Glucose Level 170#H, Calcium Level 8.9, Phosphorus Level 5.3H, Magnesium Level 2.4, Troponin I < 0.30, Pro-B-Type Natriuretic Peptide 6259H, Free Thyroxine 1.24 Height (Feet): 5 Height (Inches): 9.00 Weight (Pounds): 300 General Appearance: no apparent distress, alert EENT: normal ENT inspection Neck: normal alignment, supple Cardiovascular: normal rate, regular rhythm Respiratory/Chest: normal breath sounds, no respiratory distress Abdomen: no organomegaly Extremities: non-tender, normal inspection Neurologic: alert, oriented x 3, responsive, normal mood/affect Kusum Flores N.P. March 31, 2017 18:43
[2017-03-31] MEDS ORDERED: Morphine Sulfate 2mg/ml Inj IVP PRN ×2 (18:45→20:00)
[2017-03-31] MEDS ORDERED: Mylanta II UD 30ml ORAL PRN (20:00)
[2017-03-31] MEDS ORDERED: DuoNeb 0.5-3(2.5)mg/3ml neb HHN PRN (20:00)
[2017-03-31] MEDS ORDERED: Levemir Flexpen SUBQ SCH (21:00)
[2017-03-31] MEDS ORDERED: Atorvastatin 20mg tab ORAL SCH (21:00)
--- NOTE | 2017-03-31 22:11 | Pulmonology Progress Note ---
Assessment/Plan Problems: (1) Malaise and fatigue (2) End stage renal disease on dialysis (3) Hypertension (4) Diabetes (5) Blindness (6) Morbid obesity Assessment/Plan Respiratory treatment tolerating diet got hd sliding scale diabetic diet pt/ot Subjective ROS Limited/Unobtainable: No Constitutional: Reports: anorexia, fatigue HEENT: Repors: visual change Respiratory: Reports: shortness of breath Neurologic: Reports: weakness Allergies: Coded Allergies: NO KNOWN ALLERGIES (Unverified Allergy, Unknown, 10/15/15) Objective Last 24 Hour Vital Signs Date Time Temp Pulse Resp B/P Pulse Ox O2 Delivery O2 Flow Rate FiO2 03/31/17 21:43 73 17 Room Air 03/31/17 20:16 96.5 75 19 163/97 90 Room Air 03/31/17 18:39 97.9 77 20 164/85 93 Room Air 03/31/17 16:39 181/99 03/31/17 16:00 71 03/31/17 15:36 97.7 78 18 181/99 99 Room Air 03/31/17 14:53 Room Air 03/31/17 12:21 147/72 03/31/17 12:00 78 03/31/17 11:23 97.7 73 18 147/72 97 Room Air 03/31/17 10:50 Room Air 03/31/17 08:43 143/73 03/31/17 08:43 67 143/73 03/31/17 08:00 72 03/31/17 07:46 97.0 67 18 143/73 96 Room Air 03/31/17 07:30 71 18 Room Air 03/31/17 06:00 130/62 03/31/17 04:07 98.5 79 19 130/62 94 Room Air 03/31/17 04:00 72 03/31/17 00:11 134/80 03/31/17 00:11 98.2 74 18 132/56 92 Room Air 03/31/17 00:00 72 Intake and Output 03/30/17 03/31/17 19:00 07:00 Intake Total 600 ml Output Total 3080 ml Balance -2480 ml Intake Oral 600 ml Hemodialysis UF 3080 ml # Voids 2 # Bowel Movements 1 General Appearance: no acute distress HEENT: normocephalic, atraumatic Respiratory/Chest: chest wall non-tender, decreased breath sounds, accessory muscle use Breasts: no masses Cardiovascular: normal peripheral pulses, normal rate, regular rhythm, no JVD Abdomen: normal bowel sounds, soft, non tender, no organomegaly, non distended Genitourinary: normal external genitalia Extremities: no cyanosis Neurologic/Psychiatric: alert, oriented x 3, abnormal CN - blindness, motor weakness Laboratory Tests 03/31/17 06:55: White Blood Count 7.2, Red Blood Count 4.59, Hemoglobin 11.1L, Hematocrit 38.2, Mean Corpuscular Volume 83, Mean Corpuscular Hemoglobin 24.2L, Mean Corpuscular Hemoglobin Concent 29.1L, Red Cell Distribution Width 18.3H, Platelet Count 130L , Mean Platelet Volume 7.8, Neutrophils (%) (Auto) 48.5, Lymphocytes (%) (Auto) 27.3, Monocytes (%) (Auto) 12.5H, Eosinophils (%) (Auto) 10.7H, Basophils (%) ( Auto) 1.1, Sodium Level 137, Potassium Level 5.0H, Chloride Level 93L, Carbon Dioxide Level 26, Anion Gap 18H, Blood Urea Nitrogen 57H, Creatinine 8.1H, Estimat Glomerular Filtration Rate 6.1, Glucose Level 170#H, Calcium Level 8.9, Phosphorus Level 5.3H, Magnesium Level 2.4, Troponin I < 0.30, Pro-B-Type Natriuretic Peptide 6259H, Free Thyroxine 1.24 Current Medications Medications (Trade) Dose Ordered Sig/Josi Route PRN Reason Start Time Stop Time Status Last Admin Dose Admin Acetaminophen (Tylenol) 650 mg Q4H PRN ORAL fever 03/31/17 20:00 04/30/17 19:59 Al Hydroxide/Mg Hydroxide (Mylanta II) 30 ml Q6H PRN ORAL dyspepsia 03/31/17 20:00 04/30/17 19:59 Albuterol/ Ipratropium (DuoNeb 0.5-3(2.5)mg/3ml) 3 ml Q6H PRN HHN dyspnea 03/31/17 20:00 04/05/17 19:59 Allopurinol (Zyloprim) 100 mg DAILY ORAL 04/01/17 09:00 05/01/17 08:59 Amlodipine Besylate (Norvasc) 10 mg DAILY ORAL 04/01/17 09:00 05/01/17 08:59 Atorvastatin Calcium (Lipitor) 20 mg BEDTIME ORAL 03/31/17 21:00 04/30/17 20:59 03/31/17 20:33 Clonidine HCl (Catapres) 0.1 mg Q4H PRN ORAL SBP>160 03/31/17 20:00 04/30/17 19:59 Dextrose (Dextrose 50%) STAT PRN IV Hypoglycemia 03/31/17 20:00 04/30/17 19:59 Diphenhydramine HCl (Benadryl) 25 mg Q6H PRN IVP Itching 03/31/17 21:00 04/30/17 20:59 Folic Acid (Folate) 1 mg DAILY ORAL 04/01/17 09:00 05/01/17 08:59 Glimepiride (Amaryl) 4 mg BEFORE BREAKFAST ORAL 04/01/17 06:30 05/01/17 06:29 Heparin Sodium (Porcine) (Heparin 5000 units/ml) 5,000 units EVERY 12 HOURS SUBQ 03/31/17 21:00 04/30/17 20:59 Hydralazine HCl (Apresoline) 10 mg EVERY 6 HOURS ORAL 04/01/17 00:00 05/01/17 00:00 Insulin Aspart (NovoLOG) BEFORE MEALS AND HS SUBQ 03/31/17 21:00 04/30/17 20:59 03/31/17 21:43 Insulin Detemir (Levemir) 10 units BEDTIME SUBQ 03/31/17 21:00 04/30/17 20:59 03/31/17 21:41 Losartan Potassium (Cozaar) 50 mg DAILY ORAL 04/01/17 09:00 05/01/17 08:59 Morphine Sulfate (Morphine Sulfate) 1 mg Q4H PRN IVP for mild pain 03/31/17 18:45 04/07/17 18:44 Morphine Sulfate (Morphine Sulfate) 2 mg Q4H PRN IV Severe Breakthru Pain (>7) 03/31/17 20:00 04/07/17 19:59 03/31/17 21:21 Morphine Sulfate (Morphine Sulfate) 2 mg Q4H PRN IVP Moderate Breakthru Pain (5-7) 03/31/17 20:00 04/07/17 19:59 Ondansetron HCl (Zofran) 4 mg Q6H PRN IVP Nausea & Vomiting 03/31/17 20:00 04/30/17 19:59 03/31/17 18:44 Polyethylene Glycol (Miralax) 17 gm HSPRN PRN ORAL Constipation 04/01/17 21:00 05/01/17 20:59 Zolpidem Tartrate (Ambien) 5 mg HSPRN PRN ORAL Insomnia 04/01/17 21:00 05/01/17 20:59 JONES BARAKAT March 31, 2017 22:11
[2017-03-31] MEDS: DiphenhydrAMINE 50mg/ml Inj IVP PRN (22:52)
[2017-04-01] MEDS: HydrALAZINE 10mg Tab ORAL SCH ×4 (00:25→12:24)
[2017-04-01] MEDS ORDERED: Zolpidem 5mg tab ORAL PRN ×2 (03:15→21:00)
[2017-04-01] MEDS: NovoLOG Insulin Flexpen SUBQ SCH ×2 (05:59→12:25)
[2017-04-01] MEDS ORDERED: Glimepiride 4mg tab ORAL SCH (06:30)
[2017-04-01 07:43] LABS: EOSINOPHILS % (AUTO) 12.5 % (0.0-3.0); MEAN CORPUSCULAR HEMOGLOBIN 24.3 PG (27.0-31.0); MEAN CORPUSCULAR HGB CONC 30.2 G/DL (32.0-36.0); MEAN CORPUSCULAR VOLUME 80 FL (80-99); MEAN PLATELET VOLUME 8.8 FL (6.5-10.1); MONOCYTES % (AUTO) 13.5 % (1.0-10.0); NEUTROPHILS % (AUTO) 51.9 % (45.0-75.0); PLATELET COUNT 184 K/UL (150-450); RED BLOOD COUNT 4.54 M/UL (4.20-5.40); RED CELL DISTRIBUTION WIDTH 17.7 % (11.6-14.8); WHITE BLOOD COUNT 8.4 K/UL (4.8-10.8)
[2017-04-01 07:55] LABS: CALCIUM 8.7 mg/dL (8.6-10.2); CREATININE 7.4 mg/dL (0.5-0.9); GLOMERULAR FILTRATION RATE 6.8 mL/min (>60); POTASSIUM 4.3 mEQ/L (3.4-4.9)
[2017-04-01 08:00] VITALS: BP 154/97
--- NOTE | 2017-04-01 08:10 | General Progress Note ---
Assessment/Plan Problem List: (1) Dyspnea ICD Codes: R06.00 - Dyspnea SNOMED: 659888682 (2) Anemia ICD Codes: D64.9 - Anemia SNOMED: 328997487 (3) CHF (congestive heart failure) ICD Codes: I50.9 - Heart failure, unspecified SNOMED: 85653375 (4) Respiratory insufficiency ICD Codes: R06.89 - Respiratory insufficiency SNOMED: 130339235 (5) Obesity ICD Codes: E66.9 - Obesity SNOMED: 380283055 (6) Hypertension, uncontrolled ICD Codes: I10 - Uncontrolled hypertension SNOMED: 79673584 (7) CKD (chronic kidney disease) ICD Codes: N18.9 - Chronic kidney disease SNOMED: 419011650 (8) Renal failure ICD Codes: N19 - Unspecified kidney failure SNOMED: 38323448 (9) Diabetes ICD Codes: E11.9 - Diabetes SNOMED: 20495136 (10) Blindness of both eyes ICD Codes: H54.0 - Blindness SNOMED: 665943097 Status: stable, progressing, tolerating diet Assessment/Plan ot pt diet dialysis dc home w Subjective Allergies: Coded Allergies: NO KNOWN ALLERGIES (Unverified Allergy, Unknown, 10/15/15) All Systems: reviewed and negative except above Subjective sleepy calm wants to go home Objective Last 24 Hour Vital Signs Date Time Temp Pulse Resp B/P Pulse Ox O2 Delivery O2 Flow Rate FiO2 04/01/17 05:56 154/81 04/01/17 00:25 167/97 03/31/17 21:51 96.5 03/31/17 21:43 73 17 Room Air 03/31/17 20:16 96.5 75 19 163/97 90 Room Air 03/31/17 18:39 97.9 77 20 164/85 93 Room Air 03/31/17 16:39 181/99 03/31/17 16:00 71 03/31/17 15:36 97.7 78 18 181/99 99 Room Air 03/31/17 14:53 Room Air 03/31/17 12:21 147/72 03/31/17 12:00 78 03/31/17 11:23 97.7 73 18 147/72 97 Room Air 03/31/17 10:50 Room Air 03/31/17 08:43 143/73 03/31/17 08:43 67 143/73 Intake and Output 03/31/17 04/01/17 19:00 07:00 Intake Total 960 ml Output Total 3800 ml Balance -2840 ml Intake Oral 960 ml Output Urine Total 800 ml Hemodialysis UF 3000 ml # Voids 2 3 # Bowel Movements 1 Laboratory Tests 04/01/17 07:10: White Blood Count 8.4, Red Blood Count 4.54, Hemoglobin 11.0L, Hematocrit 36.5L , Mean Corpuscular Volume 80, Mean Corpuscular Hemoglobin 24.3L, Mean Corpuscular Hemoglobin Concent 30.2L, Red Cell Distribution Width 17.7H, Platelet Count 184, Mean Platelet Volume 8.8, Neutrophils (%) (Auto) 51.9, Lymphocytes (%) (Auto) 21.0, Monocytes (%) (Auto) 13.5H, Eosinophils (%) (Auto) 12.5H, Basophils (%) (Auto) 1.0, Sodium Level 137, Potassium Level 4.3, Chloride Level 91L, Carbon Dioxide Level 27, Anion Gap 19H, Blood Urea Nitrogen 58H, Creatinine 7.4H, Estimat Glomerular Filtration Rate 6.8, Glucose Level 221H , Calcium Level 8.7 Height (Feet): 5 Height (Inches): 9.00 Weight (Pounds): 300 General Appearance: alert EENT: normal ENT inspection Neck: normal alignment Cardiovascular: normal peripheral pulses, normal rate, regular rhythm Respiratory/Chest: chest wall non-tender, lungs clear, normal breath sounds Abdomen: normal bowel sounds, non tender, soft Extremities: normal inspection Edema: no edema noted Arm (L), no edema noted Arm (R), no edema noted Leg (L), no edema noted Leg (R), no edema noted Pedal (L), no edema noted Pedal (R), no edema noted Generalized Neurologic: responsive, motor weakness Skin: normal pigmentation, warm/dry BRIE LAN April 01, 2017 08:10
[2017-04-01] MEDS ORDERED: Allopurinol 100mg Tab ORAL SCH (09:00)
[2017-04-01] MEDS ORDERED: Losartan 50mg tab ORAL SCH (09:00)
[2017-04-01] MEDS: Heparin 5000 units/ml inj SUBQ SCH (09:00)
[2017-04-01] MEDS: DiphenhydrAMINE 50mg/ml Inj IVP PRN ×2 (09:11→15:39)
[2017-04-01] MEDS: Morphine Sulfate 2mg/ml Inj IV PRN (09:13)
[2017-04-01] MEDS ORDERED: ZOLPIDEM TARTRAT5 MG ORAL (11:15)
[2017-04-01] MEDS ORDERED: MORPHINE 22 MG/1 ML IV (11:16)
[2017-04-01 12:00] VITALS: BP 150/84
[2017-04-01 12:24] VITALS: BP 150/84
[2017-04-01] MEDS ORDERED: Miralax 17gm pkt ORAL PRN (21:00)
--- NOTE | 2017-04-01 23:08 | Pulmonology Progress Note ---
Assessment/Plan Problems: (1) Malaise and fatigue (2) End stage renal disease on dialysis (3) Hypertension (4) Diabetes (5) Blindness (6) Morbid obesity Assessment/Plan Respiratory treatment tolerating diet got hd sliding scale diabetic diet pt/ot Subjective ROS Limited/Unobtainable: No Constitutional: Reports: anorexia, fatigue Gastrointestinal/Abdominal: Reports: bloating, nausea Neurologic: Reports: weakness Allergies: Coded Allergies: NO KNOWN ALLERGIES (Unverified Allergy, Unknown, 10/15/15) Objective Last 24 Hour Vital Signs Date Time Temp Pulse Resp B/P Pulse Ox O2 Delivery O2 Flow Rate FiO2 04/01/17 12:24 150/84 04/01/17 12:00 97.7 79 19 150/84 92 Room Air 04/01/17 09:29 85 18 Room Air 04/01/17 09:12 154/97 04/01/17 09:12 75 154/97 04/01/17 08:00 97.5 75 18 154/97 97 Room Air 04/01/17 05:56 154/81 04/01/17 00:25 167/97 Intake and Output 03/31/17 04/01/17 19:00 07:00 Intake Total 960 ml Output Total 3800 ml Balance -2840 ml Intake Oral 960 ml Output Urine Total 800 ml Hemodialysis UF 3000 ml # Voids 2 3 # Bowel Movements 1 General Appearance: no acute distress, other - morbidly obese appearing HEENT: normocephalic, atraumatic, anicteric, other - bilateral blindness Respiratory/Chest: chest wall non-tender, decreased breath sounds, accessory muscle use Breasts: no masses Cardiovascular: normal peripheral pulses, normal rate, regular rhythm, no JVD Abdomen: normal bowel sounds, soft, non tender, distended Genitourinary: normal external genitalia Extremities: no cyanosis Skin: lesions Neurologic/Psychiatric: investor II-XII grossly normal, no motor/sensory deficits Laboratory Tests 04/01/17 07:10: White Blood Count 8.4, Red Blood Count 4.54, Hemoglobin 11.0L, Hematocrit 36.5L , Mean Corpuscular Volume 80, Mean Corpuscular Hemoglobin 24.3L, Mean Corpuscular Hemoglobin Concent 30.2L, Red Cell Distribution Width 17.7H, Platelet Count 184, Mean Platelet Volume 8.8, Neutrophils (%) (Auto) 51.9, Lymphocytes (%) (Auto) 21.0, Monocytes (%) (Auto) 13.5H, Eosinophils (%) (Auto) 12.5H, Basophils (%) (Auto) 1.0, Sodium Level 137, Potassium Level 4.3, Chloride Level 91L, Carbon Dioxide Level 27, Anion Gap 19H, Blood Urea Nitrogen 58H, Creatinine 7.4H, Estimat Glomerular Filtration Rate 6.8, Glucose Level 221H , Calcium Level 8.7 JONES BARAKAT April 01, 2017 23:08
--- NOTE | 2017-04-02 08:49 | Cardiology Report ---
APPROVED REPORT EXAM: Two-dimensional and M-mode echocardiogram with Doppler and color Doppler. INDICATION Congestive Heart Failure M-Mode DIMENSIONS IVSd1.3 (0.7-1.1cm)Left Atrium (MM)4.0 (1.6-4.0cm) LVDd5.4 (3.5-5.6cm)Aortic Root3.5 (2.0-3.7cm) PWd1.3 (0.7-1.1cm)Aortic Cusp Exc.2.1 (1.5-2.0cm) LVDs3.6 (2.5-4.0cm) PWs1.5 cm Technically difficult study due to poor acoustic windows. Normal left ventricular chamber size, systolic function and wall motion. Left ventricular ejection fraction estimated to be 55-60%. Mild left ventricular hypertrophy. Small posterior pericardial effusion. Mild left atrial and right ventricular enlargement by 2D. Moderate right atrial enlargement by 2D. Focal aortic valve sclerosis with adequate cusp excursion Thickened mitral valve leaflets with normal excursion. Mitral annulus and aortic root calcification. Pulmonic valve not well visualized. Normal tricuspid valve structure. IVC dilated at 2.9cm with minimal physiologic collapse. RA pressure of 15mmHg. A color flow and spectral Doppler study was performed and revealed: No aortic regurgitation. Trace mitral regurgitation. Left ventricular diastolic dysfunction grade 1. Mild tricuspid regurgitation. Tricuspid systolic velocities suggests peak right ventricular systolic pressure of 36 mmHg Consistent with mild pulmonary hypertension.
--- NOTE | 2017-04-02 14:24 | Discharge Summary ---
Discharge Summary Hospital Course Date of Admission March 29, 2017 at 13:17 Date of Discharge April 01, 2017 at 16:10 Admitting Diagnosis WEAKNESS/ DIALYSIS HPI Tawny Frias is a 61 year old female who was admitted on March 29, 2017 at 13:17 for Weakness Hospital Course dc summary #[id number] Discharge Medications Continued Medications: Acetaminophen (Tylenol) 325 Mg Tablet 650 MG ORAL Q4HR PRN for Mild Pain/Temp > 100.5, #30 TAB 0 Refills Al Hydroxide/mg Hydroxide (Mag-Al Plus Suspension) 30 Ml Oral.susp 30 ML PO Q6HR PRN for indigestion, ML Albuterol Sulfate* (Albuterol Sulfate Hhn*) 2.5 Mg/3 Ml Vial.neb 3 ML INH Q6H PRN for Shortness of Breath, #30 EA 0 Refills Allopurinol* (Zyloprim*) 100 Mg Tablet 100 MG ORAL DAILY, TAB Amlodipine Besylate* (Amlodipine Besylate*) 10 Mg Tablet 10 MG ORAL DAILY, TAB Atorvastatin Calcium* (Atorvastatin Calcium*) 20 Mg Tablet 20 MG ORAL BEDTIME, TAB Clonidine Hcl* (Catapres*) 0.1 Mg Tablet 0.1 MG ORAL EVERY 4 HOURS PRN for For High Blood Pressure, TAB Diphenhydramine Hcl* (Diphenhydramine Hcl*) 25 Mg Capsule 25 MG ORAL Q6H PRN for Itching, #30 CAP 0 Refills Folic Acid* (Folic Acid*) 1 Mg Tablet 1 MG ORAL DAILY, TAB Glimepiride* (Amaryl*) 4 Mg Tablet 4 MG ORAL BEFORE BREAKFAST, #1 TAB Heparin Sod (Porcine) (Heparin Sodium*) 5 000/1 Ml Vial 5000 UNITS SUBQ EVERY 12 HOURS, VIAL Hydralazine HCl (Hydralazine HCl) 10 Mg Tablet 10 MG ORAL EVERY 6 HOURS, TAB Insulin Aspart (Novolog Flexpen) 100 Unit/1 Ml Insuln.pen 1 UNITS SUBQ AC+HS Insulin Detemir (Levemir Flexpen) 100 Units/Ml Pen 10 UNITS SUBQ BEDTIME, #1 EA Losartan Potassium* (Losartan Potassium*) 50 Mg Tablet 50 MG ORAL DAILY, TAB Morphine Sulfate* (Morphine Sulfate*) 2 Mg/1 Ml Cartridge 2 MG IV Q4HR PRN for Severe Breakthru Pain (>7), EA Morphine Sulfate* (Morphine Sulfate*) 2 Mg/1 Ml Cartridge 2 MG IV Q4HR PRN for Moderate Breakthru Pain (5-7), EA Morphine Sulfate* (Morphine Sulfate*) 2 Mg/1 Ml Cartridge 1 MG IV Q4HR PRN for Mild Pain (Pain Scale 1-3), EA Ondansetron (Zofran) 4 Mg Tab 4 MG ORAL Q6H PRN for Nausea & Vomiting, TAB Polyethylene Glycol 3350* (Miralax*) 17 Gm Powd.pack 17 GM ORAL DAILY PRN for Constipation, PACKET Zolpidem Tartrate* (Zolpidem Tartrate*) 5 Mg Tablet 5 MG ORAL BEDTIME PRN for Insomnia, TAB 0 Refills Discharge Condition Upon Discharge: stable Discharge Disposition Patient was discharged to Home with Home Health(06) Discharge Diagnoses: Discharge Instructions Discharge Instructions Special Instructions I have been assigned to complete a D/C Summary on this account. I was not involved in the patient management Chastity Velasco NP (Vanchtein) April 02, 2017 14:24
--- NOTE | 2017-04-03 07:29 | Discharge Summary 2 SIG ---
DATE OF ADMISSION: 03/29/2017 DATE OF DISCHARGE: 04/01/2017 REASON FOR ADMISSION: 61-year-old female presented to emergency room complaining of episodes of generalized weakness, status post dizziness and fall on her left knee. The patient reported no blackout, no loss of consciousness, no chest pain, no headache, no dizziness, and no head injury. She denied shortness of breath, fever, chills, nausea, vomiting, abdominal pain, or urinary complaints. The patient was due for hemodialysis later today. The patient with a past medical history of diabetes, hypertension, and end-stage renal disease, on hemodialysis. Workup in the emergency room revealed potassium - 5.2. Vital signs were stable, afebrile, and normotensive. EKG with a first-degree AV block, otherwise sinus rhythm. No ischemic changes. Troponin negative. Chest x-ray with evidence of cardiomegaly, but no pulmonary congestion. Elevated pro-BNP. The patient was admitted to telemetry floor for hemodialysis and tele observation. ADMITTING DIAGNOSES: 1. Episode of generalized weakness. 2. Status post mechanical fall. 3. Hyperkalemia. 4. End-stage renal disease, on hemodialysis. 5. Diabetes. 6. Hypertension. 7. Congestive heart failure. HOSPITAL COURSE: The patient was admitted to telemetry floor. Cardiology, Pulmonology, and Nephrology consults were requested. Pharmacy Aide seen and evaluated the patient. Echocardiogram was ordered. Echocardiogram revealed ejection fraction of 55% to 60% and right ventricular systolic pressure of 36 consistent with mild pulmonary hypertension. It also revealed evidence of diastolic dysfunction. Lipid panel revealed elevated triglycerides, otherwise stable. Continue statin. The patient was counseled on low-fat low cholesterol cardiac diabetic diet. Pro-BNP with a small trend down. Congestive heart failure likely secondary to diastolic dysfunction and hypertensive heart disease. Blood pressure was managed with calcium channel hardik and ARB, and was stable. The patient was also on as needed clonidine and hydralazine. Chest x-ray negative for any evidence of acute cardiopulmonary disease, but showed evidence of cardiomegaly. Mesh Cutter followed. Hemodialysis was arranged as per cold working inspector. Electrolytes and renal parameters were closely monitored. Mesh Cutter placed the patient on free water restriction. Fall precautions were maintained. The patient was working with physical and occupational therapists. Blood sugar was managed with sliding scale of insulin. Hemoglobin A1c- 9.2, not at goal, likely noncompliant at home since the blood sugar was stable at the hospital. The patient was stable for discharge home with home health services to improve adherence to medication, due to the blindness and noncompliance. DISCHARGE DIAGNOSES: 1. Episodes of generalized weakness 2. Status post mechanical fall. 3. Diabetes mellitus, out of control. 4. Hyperkalemia-resolved. 5. Hypertensive heart disease. 6. End-stage renal disease, on hemodialysis. 7. Mild pulmonary hypertension. 8. Diastolic dysfunction. 9. Congestive heart failure secondary to diastolic dysfunction and hypertensive heart disease. 10. Hyperlipidemia. 11. Morbid obesity. 12. Blindness. DISCHARGE MEDICATIONS: See medication reconciliation. DISCHARGE INSTRUCTIONS: The patient was discharged home with home health services. FOLLOWUP: Follow up with primary medical doctor. Roderick Henning D.O. I have been assigned to dictate discharge summary on this account and I was not involved in the patient's management. Chastity EugeneDena mueller DR: AMALIA JOB#: [id number] CC: JEAN
--- NOTE | 2017-04-20 16:40 | Physician Query ---
PLEASE COMPLETE DOCUMENT BEFORE SIGNING Dear Dr. BRIE LAN Date: 04/20/2017 Atg Java Developer/CDS Name: LEI GEORGE CCS Exercise your independent professional judgment when responding to the query. Questions asked do not imply a particular answer is desired or expected. We greatly appreciate your clarification on this issue. CLINICAL DOCUMENTATION STATES: DISCHARGE DIAGNOSES: 1. Episodes of generalized weakness CLINICAL FINDINGS SHOW: Workup in the emergency room revealed potassium - 5.2. Vital signs were stable, afebrile, and normotensive. EKG with a first-degree AV block, otherwise sinus rhythm. No ischemic changes. Troponin negative. Chest x-ray with evidence of cardiomegaly, but no pulmonary congestion. Elevated pro-BNP. The patient was admitted to telemetry floor for hemodialysis and tele observation. Please respond to the following question: Is there a diagnosis specific to these symptoms of generalized weakness? If so please state below. PHYSICIAN RESPONSE: Please also document in your Progress Notes and/or Discharge Summary and indicate if the condition was present on admission. Brie Lan M.D. Date & [facility]
--- NOTE | 2017-05-08 09:17 | Physician Query ---
PLEASE COMPLETE DOCUMENT BEFORE SIGNING Dear Dr. BRIE LAN Date: 05/08/2017 Obstetrics Specialist/CDS Name: LEI GEORGE CCS Exercise your independent professional judgment when responding to the query. Questions asked do not imply a particular answer is desired or expected. We greatly appreciate your clarification on this issue. CLINICAL DOCUMENTATION STATES: DISCHARGE DIAGNOSES: 1. Episodes of generalized weakness CLINICAL FINDINGS SHOW: Workup in the emergency room revealed potassium - 5.2. Vital signs were stable, afebrile, and normotensive. EKG with a first-degree AV block, otherwise sinus rhythm. No ischemic changes. Troponin negative. Chest x-ray with evidence of cardiomegaly, but no pulmonary congestion. Elevated pro-BNP. The patient was admitted to telemetry floor for hemodialysis and tele observation. Please respond to the following question: Is there a diagnosis specific to these symptoms of generalized weakness? PHYSICIAN RESPONSE: Please also document in your Progress Notes and/or Discharge Summary and indicate if the condition was present on admission. Brie Lan M.D. Date & [facility]
== END 2017-04-01 16:10 | disposition home health service (06) | DRG 947 ==
LOC: EDBD 12:26 → EMR 12:45 → 2E 13:17 → EDBEDREQ 14:48 → 2E 15:50 → 4W 03-31 18:10
PROC: 5A1D00Z (ICD-10-PCS; principal; 2017-03-31)
DX: R53.1 Weakness (principal); N18.6 End stage renal disease; I13.2 Hypertensive heart and chronic kidney disease with heart failure and with stage 5 chronic kidney disease, or end stage renal disease; E11.22 Type 2 diabetes mellitus with diabetic chronic kidney disease; I50.30 Unspecified diastolic (congestive) heart failure; Z68.41 Body mass index [BMI] 40.0-44.9, adult; Z99.2 Dependence on renal dialysis; E78.5 Hyperlipidemia, unspecified; E87.5 Hyperkalemia; E66.01 Morbid (severe) obesity due to excess calories; H54.0 Blindness, both eyes; D64.9 Anemia, unspecified; Z91.19 Patient's noncompliance with other medical treatment and regimen; Z91.81 History of falling; Z79.4 Long term (current) use of insulin
CPT/HCPCS: 36415; 71010; 80048; 80053; 80061; 82550; 82553; 82962; 83036; 83735; 83880; 84100; 84439; 84443; 84484; 85025; 87081; 93005; 93306; 94640; 94664; J1815; J2405; S5561

== ENCOUNTER 2017-05-08 18:29 | Emergency (ER) | payer MEDICARE, OTHER ==
[~2017-05-08] VITALS: Ht 167.6 cm; Wt 136.1 kg
[~2017-05-08 18:29] MED LIST changes: +CATAPRES0.2 MG ORAL; +FOLIC ACID1 MG ORAL; +HUMALOG 75/255 UNIT1 SUBQ; +XIIDRA1 EACH OP; +ZANTAC150 MG ORAL; +ZOLPIDEM TARTRAT5 MG ORAL
[2017-05-08 18:44] VITALS: BP 138/74
[2017-05-08 19:19] LABS: BASOPHILS % (AUTO) 1.6 % (0.0-2.0); EOSINOPHILS % (AUTO) 9.6 % (0.0-3.0); MEAN CORPUSCULAR HEMOGLOBIN 25.2 PG (27.0-31.0); MEAN CORPUSCULAR HGB CONC 31.3 G/DL (32.0-36.0); MEAN CORPUSCULAR VOLUME 80 FL (80-99); MONOCYTES % (AUTO) 12.6 % (1.0-10.0); NEUTROPHILS % (AUTO) 49.2 % (45.0-75.0); PLATELET COUNT 203 K/UL (150-450); RED BLOOD COUNT 4.53 M/UL (4.20-5.40); RED CELL DISTRIBUTION WIDTH 18.8 % (11.6-14.8); WHITE BLOOD COUNT 9.4 K/UL (4.8-10.8)
[2017-05-08 19:40] LABS: ALBUMIN/GLOBULIN RATIO 1.5 (1.0-2.7); CALCIUM 9.2 mg/dL (8.6-10.2); CREATININE 6.7 mg/dL (0.5-0.9); GLOMERULAR FILTRATION RATE 7.6 mL/min (>60); POTASSIUM 4.3 mEQ/L (3.4-4.9); TOTAL PROTEIN 7.3 g/dL (6.6-8.7)
--- NOTE | 2017-05-08 19:54 | Emergency Room Report ---
History of Present Illness General Chief Complaint: Abdominal Pain Source: Patient, EMS Present Illness HPI 61YOF BIBEMS with "suprapubic pain, constant" today associated with painful urination and nausea/vomiting. Denies abd pain, chest pain, SOB. Had HD yesterday because "I was supposed to go somewhere today." Makes "a little urine." Just admitted March 29- for weakness, hyperK. PMHx: CHF. Echo in March 2017 showed EF 55%. HTN, HLD, ESRD on HD. Allergies: Coded Allergies: NO KNOWN ALLERGIES (Unverified Allergy, Unknown, 10/15/15) Patient History Past Medical History: DM, HTN, renal disease Past Surgical History: none Pertinent Family History: none Social History: Denies: alcohol use, drug use, smoking Now: No Immunizations: UTD Reviewed Nursing Documentation: PMH: Agreed, PSxH: Agreed Nursing Documentation-PMH Past Medical History: No History, Except For Hx Cardiac Problems: Yes - CHF Hx Hypertension: Yes Hx Asthma: Yes Hx COPD: Yes Hx Diabetes: Yes Hx Cancer: No Hx Gastrointestinal Problems: Yes Hx Dialysis: Yes - T TH Sat Hx Neurological Problems: No Hx Peripheral Neuropathy: Yes - secondary to DM Hx Tremors: Yes Hx Vertigo: Yes Hx Dizziness: Yes Hx Syncope: Yes Hx Headaches: Yes Hx Weakness: Yes Hx Fatigue: Yes Review of Systems All Other Systems: negative except mentioned in HPI Physical Exam Vital Signs Date Time Temp Pulse Resp B/P Pulse Ox O2 Delivery O2 Flow Rate FiO2 05/08/17 18:26 98.1 78 16 138/74 95 Room Air Sp02 EP Interpretation: reviewed, normal General Appearance: normal inspection, well appearing, no apparent distress, alert, GCS 15, non-toxic, obese Head: normocephalic, atraumatic Eyes: bilateral eye EOMI, bilateral eye PERRL ENT: normal ENT inspection, hearing grossly normal, normal voice Neck: normal inspection, full range of motion, supple, no bony tend Respiratory: normal inspection, lungs clear, normal breath sounds, no respiratory distress, no retraction, no wheezing Gastrointestinal: normal inspection, normal bowel sounds, non tender, soft, no guarding, no hernia Genitourinary: no CVA tenderness, other - Suprapubic ttp Musculoskeletal: normal inspection, back normal, normal range of motion, Pam' s Sign negative Neurologic: normal inspection, alert, oriented x3, responsive, assistant project engineer III-XII nml as tested, motor strength/tone normal, speech normal Psychiatric: normal inspection, judgement/insight normal, mood/affect normal Skin: normal inspection, normal color, no rash Lymphatic: normal inspection Medical Decision Making Diagnostic Impression: Primary Impression: Abdominal pain Qualified Codes: R10.30 - Lower abdominal pain, unspecified Additional Impression: Dysuria ER Course Lower abd pain/dysuria - UA with LE, 2-4WBCs, bacteria - Will tx for UTI. Initial dose of macrobid given here along with Rx - VSS. Afebrile. Non-focal abdomen. - H&H stable. SerumCr at baseline. K normal. No other metabolic abnormalities warranting admission or HD. Plus, had dialysis yesterday. - Not hypoxic, tachycardic or tachypnic. Does not need emergent HD currently - Exam and labs suggest patient does not urgently require additional testing, imaging or admission at this time Provided transport for patient home Recommended PMD followup as needed Last Vital Signs Date Time Temp Pulse Resp B/P Pulse Ox O2 Delivery O2 Flow Rate FiO2 05/08/17 18:44 67 16 138/74 99 Room Air 05/08/17 18:26 98.1 Status: improved Disposition: HOME, SELF-CARE Scripts Nitrofurantoin Monohyd/M-Cryst* (MACROBID 100 MG*) 100 Mg Capsule 100 MG ORAL EVERY 12 HOURS for 7 Days, #13 CAP Prov: KALANI NELSON M.D. 05/08/17 KALANI NELSON M.D. May 08, 2017 19:54
[2017-05-08 20:00] VITALS: BP 142/88
[2017-05-08 20:14] LABS: APPEARANCE,URINE CLEAR; KETONES,URINE 1+ (NEGATIVE); LEUKOCYTE ESTERASE ,URINE 2+ (NEGATIVE); NITRITE,URINE NEGATIVE (NEGATIVE); PH,URINE 5 (4.5-8.0); PROTEIN,URINE 4+ (NEGATIVE); UROBILINOGEN,URINE NORMAL MG/DL (0.0-1.0)
[2017-05-08 20:17] LABS: AMORPHOUS SEDIMENT,UR FEW /LPF; BACTERIA,URINE FEW /HPF; SQUAMOUS EPITHELIAL CELL,UR FEW /LPF (NONE/OCC)
[2017-05-08] MEDS ORDERED: NITROFURANTOIN100 M2 ORAL (20:54)
[2017-05-08 21:00] VITALS: BP 139/79
[2017-05-08 22:16] VITALS: BP 139/79
== END 2017-05-08 22:20 | disposition home or self-care (01) ==
LOC: EDBD 18:29 → EMR 19:20
DX: R10.30 Lower abdominal pain, unspecified (principal); R30.0 Dysuria; R11.2 Nausea with vomiting, unspecified; I51.9 Heart disease, unspecified; J44.9 Chronic obstructive pulmonary disease, unspecified; I12.0 Hypertensive chronic kidney disease with stage 5 chronic kidney disease or end stage renal disease; E11.22 Type 2 diabetes mellitus with diabetic chronic kidney disease; N18.6 End stage renal disease; E11.40 Type 2 diabetes mellitus with diabetic neuropathy, unspecified; Z99.2 Dependence on renal dialysis
CPT/HCPCS: 36415; 80053; 81003; 83690; 85025; 96360; 96374; 99284; J2405

== ENCOUNTER 2017-07-19 12:10 | Emergency (ER) | payer MEDICARE, OTHER ==
[~2017-07-19] VITALS: Ht 172.7 cm; Wt 131.5 kg
[~2017-07-19 12:10] MED LIST changes: +NITROFURANTOIN100 M2 ORAL
[2017-07-19 12:29] VITALS: BP 158/88
[2017-07-19 13:20] LABS: BASOPHILS % (AUTO) 1.6 % (0.0-2.0); EOSINOPHILS % (AUTO) 13.7 % (0.0-3.0); LYMPHOCYTES % (AUTO) 14.9 % (20.0-45.0); MEAN CORPUSCULAR HEMOGLOBIN 25.2 PG (27.0-31.0); MEAN CORPUSCULAR HGB CONC 29.9 G/DL (32.0-36.0); MEAN CORPUSCULAR VOLUME 84 FL (80-99); MEAN PLATELET VOLUME 7.7 FL (6.5-10.1); MONOCYTES % (AUTO) 11.3 % (1.0-10.0); NEUTROPHILS % (AUTO) 58.6 % (45.0-75.0); PLATELET COUNT 213 K/UL (150-450); RED BLOOD COUNT 4.47 M/UL (4.20-5.40); RED CELL DISTRIBUTION WIDTH 17.2 % (11.6-14.8); WHITE BLOOD COUNT 5.9 K/UL (4.8-10.8)
[2017-07-19 13:25] LABS: TROPONIN I < 0.30 ng/mL (<=0.30)
[2017-07-19 13:27] LABS: ALBUMIN/GLOBULIN RATIO 1.7 (1.0-2.7); CALCIUM 9.6 mg/dL (8.6-10.2); CREATININE 9.9 mg/dL (0.5-0.9); GLOMERULAR FILTRATION RATE 4.8 mL/min (>60); POTASSIUM 3.7 mEQ/L (3.4-4.9); TOTAL PROTEIN 7.5 g/dL (6.6-8.7)
--- NOTE | 2017-07-19 13:36 | Emergency Room Report ---
History of Present Illness General Chief Complaint: Chest Pain Source: Patient, EMS Present Illness HPI 61YOF with substernal non-radiating chest pain since this morning. Worse with movement, palpation. States "Have it all the time." No assoc fever/chills, cough, SOB. Due for HD today on //Sat schedule Patient not providing additional HPI at this time Allergies: Coded Allergies: NO KNOWN ALLERGIES (Unverified Allergy, Unknown, 10/15/15) Patient History Past Medical History: see triage record, old chart reviewed Past Surgical History: none Pertinent Family History: none Social History: Denies: smoking, alcohol use, drug use Now: No Immunizations: UTD Reviewed Nursing Documentation: PMH: Agreed, PSxH: Agreed Nursing Documentation-PMH Past Medical History: No History, Except For Hx Cardiac Problems: Yes - CHF, [place] Hx Hypertension: Yes Hx Pacemaker: No - HIV Hx Asthma: Yes Hx COPD: Yes Hx Diabetes: Yes Hx Cancer: No Hx Gastrointestinal Problems: Yes Hx Dialysis: Yes - , , SUN Hx Neurological Problems: No Hx Peripheral Neuropathy: Yes - secondary to DM Hx Tremors: Yes Hx Vertigo: Yes Hx Dizziness: Yes Hx Syncope: Yes Hx Headaches: Yes Hx Weakness: Yes Hx Fatigue: Yes Review of Systems All Other Systems: negative except mentioned in HPI Physical Exam Vital Signs Date Time Temp Pulse Resp B/P (MAP) Pulse Ox O2 Delivery O2 Flow Rate FiO2 07/19/17 12:07 97.7 73 20 156/84 97 Room Air 07/19/17 12:29 2.0 Sp02 EP Interpretation: reviewed, normal General Appearance: normal inspection, well appearing, no apparent distress, alert, GCS 15, non-toxic, obese Head: normocephalic Eyes: bilateral eye PERRL, bilateral eye EOMI ENT: normal ENT inspection, hearing grossly normal, normal voice Neck: normal inspection, full range of motion, supple, no bony tend Respiratory: normal inspection, lungs clear, normal breath sounds, no rhonchi, no respiratory distress, no retraction, no accessory muscle use, no wheezing, speaking full sentences, other - Palpation of chest illicits chest pain, chest symmetrical Cardiovascular #1: regular rate, rhythm, no edema Gastrointestinal: normal inspection, normal bowel sounds, non tender, soft, no guarding, no hernia Genitourinary: no CVA tenderness Musculoskeletal: normal inspection, back normal, normal range of motion, Pam' s Sign negative Neurologic: normal inspection, alert, oriented x3, responsive, wet chemistry analyst III-XII nml as tested, motor strength/tone normal, speech normal Psychiatric: normal inspection, judgement/insight normal, mood/affect normal Skin: normal inspection, normal color, no rash Lymphatic: normal inspection Medical Decision Making Diagnostic Impression: Primary Impression: Chest pain Qualified Codes: R07.9 - Chest pain, unspecified Additional Impression: ESRD (end stage renal disease) on dialysis ER Course Chest pain worse with movement, reproducible. has had all day ECG is sinus with 1st degree block Troponin 0. K normal SerumCr is baseline CXR with mild pulm congestion but maintaining O2 sat, no acute distress Patient has no acute abnormalities requiring admission or HD here Transferred to her HD session from ED EKG Diagnostic Results Rate: other - 1st degree block Rhythm: NSR ST Segments: no acute changes ASA given to the pt in ED: No Rhythm Strip Diag. Results EP Interpretation: yes Rate: 65 Rhythm: NSR, no PVC's, no ectopy Last Vital Signs Date Time Temp Pulse Resp B/P (MAP) Pulse Ox O2 Delivery O2 Flow Rate FiO2 07/19/17 12:29 97.7 62 16 158/88 100 Nasal Cannula 2.0 Status: improved Disposition: HOME, SELF-CARE Referrals: NOT CHOSEN IPA/,REFERRING (PCP) KALANI NELSON M.D. Jul 19, 2017 13:36
[2017-07-19 13:38] LABS: CKMB 3.6 ng/mL (< 3.8)
--- NOTE | 2017-07-19 13:55 | Diagnostic Imaging Report ---
Indication: Dyspnea Comparison: 03/29/17 A single view chest radiograph was obtained. Findings: The study is degraded by breathing motion. The heart is enlarged. There is mild pulmonary vascular congestion present. There is no airspace opacification. Bones are slight osteopenic. Impression: Suspected mild pulmonary venous congestion
[2017-07-19 14:30] VITALS: BP 153/85
[2017-07-19 14:40] VITALS: BP 153/85
--- NOTE | 2017-07-24 15:57 | Cardiology Report ---
APPROVED REPORT EKG Measurement Heart [id number] Sinus rhythm with sinus arrhythmia with 1st degree AV block Low voltage QRS Inferior infarct, age undetermined Cannot rule out Anteroseptal infarct, age undetermined Abnormal ECG
== END 2017-07-19 14:40 | disposition home or self-care (01) ==
LOC: EDBD 12:10 → EMR 12:45 → CANBEDREQ 14:55
DX: R07.9 Chest pain, unspecified (principal); I12.0 Hypertensive chronic kidney disease with stage 5 chronic kidney disease or end stage renal disease; E11.22 Type 2 diabetes mellitus with diabetic chronic kidney disease; N18.6 End stage renal disease; Z99.2 Dependence on renal dialysis; I50.9 Heart failure, unspecified; I25.2 Old myocardial infarction; J44.9 Chronic obstructive pulmonary disease, unspecified; E11.40 Type 2 diabetes mellitus with diabetic neuropathy, unspecified; I44.0 Atrioventricular block, first degree; I51.7 Cardiomegaly; M85.80 Other specified disorders of bone density and structure, unspecified site
CPT/HCPCS: 36415; 71010; 80053; 82550; 82553; 84484; 85025; 93005; 96374; 99284

== ENCOUNTER 2017-09-13 19:38 | Emergency (ER) | payer MEDICARE, OTHER ==
[~2017-09-13] VITALS: Ht 175.3 cm; Wt 136.5 kg
--- NOTE | 2017-09-13 19:59 | Emergency Room Report ---
History of Present Illness General Chief Complaint: Chest Pain Source: Medical Record Present Illness HPI 61YOF BIBEMS from HD center after completing HD C/o chest pain Denies assoc SOB, fever/chills, cough, abd pain, nausea/vomiting Pain is worse with movement Patient here regularly for chest pain to the ED EF in March 2017 55-60% Allergies: Coded Allergies: NO KNOWN ALLERGIES (Unverified Allergy, Unknown, 10/15/15) Patient History Past Medical History: old chart reviewed, renal disease Pertinent Family History: none Social History: Denies: smoking, alcohol use, drug use Last Menstrual Period: none Now: No Immunizations: UTD Reviewed Nursing Documentation: PMH: Agreed, PSxH: Agreed Nursing Documentation-PMH Hx Hypertension: Yes - cardiac stents 2010 Hx Pacemaker: No - HIV Hx Asthma: Yes Hx COPD: Yes Hx Diabetes: Yes Hx Cancer: No Hx Dialysis: Yes - Sunday, , Sunday Hx Neurological Problems: No Hx Peripheral Neuropathy: Yes - secondary to DM Hx Tremors: Yes Hx Vertigo: Yes Hx Dizziness: Yes Hx Syncope: Yes Hx Headaches: Yes Hx Weakness: Yes Hx Fatigue: Yes Review of Systems All Other Systems: negative except mentioned in HPI Physical Exam Vital Signs Date Time Temp Pulse Resp B/P (MAP) Pulse Ox O2 Delivery O2 Flow Rate FiO2 09/13/17 19:42 98.8 88 18 176/82 100 Room Air Sp02 EP Interpretation: reviewed, normal General Appearance: normal inspection, well appearing, no apparent distress, alert, GCS 15, non-toxic, obese, other - Well appearing, sitting upright in stretcher Head: normocephalic, atraumatic Eyes: bilateral eye PERRL, bilateral eye EOMI ENT: normal ENT inspection, hearing grossly normal, normal voice Neck: normal inspection, full range of motion, supple, no bony tend Respiratory: normal inspection, lungs clear, normal breath sounds, no rhonchi, no respiratory distress, no retraction, no accessory muscle use, no wheezing, other - Reproducible left sided chest pain, chest symmetrical Cardiovascular #1: regular rate, rhythm, no edema Gastrointestinal: normal inspection, normal bowel sounds, non tender, soft, no guarding, no hernia Genitourinary: no CVA tenderness Musculoskeletal: normal inspection, back normal, normal range of motion, Pam' s Sign negative Neurologic: normal inspection, alert, oriented x3, responsive, jewish history professor III-XII nml as tested, speech normal Psychiatric: normal inspection, judgement/insight normal, mood/affect normal Skin: normal inspection, normal color, no rash Medical Decision Making Diagnostic Impression: Primary Impression: Chest pain Qualified Codes: R07.9 - Chest pain, unspecified ER Course Chest pain since HD VSS. Afebrile. Not hypoxic ECG is 1st degree AV block Patient has had multiple workups for chest pain - usually non-ischemic Likely MSK given reproducible, worse with movement has maintained EF on recent echo Doubt PE given no hypoxia, no tachycardia Likely also related to morbid obesity, compression of diaphragm by abdominal girth, immobility Doubt metabolic abnormality as just completed full session of HD DC home with EMS EKG Diagnostic Results Rate: other - 1st degree AV block Rhythm: NSR ST Segments: no acute changes ASA given to the pt in ED: No Rhythm Strip Diag. Results Rate: 65 Rhythm: NSR, no PVC's, no ectopy Last Vital Signs Date Time Temp Pulse Resp B/P (MAP) Pulse Ox O2 Delivery O2 Flow Rate FiO2 09/13/17 19:42 98.8 88 18 176/82 100 Room Air Status: improved Disposition: HOME, SELF-CARE KALANI NELSON M.D. Sep 13, 2017 19:59
[2017-09-13 20:58] VITALS: BP 154/80
--- NOTE | 2017-09-14 15:02 | Cardiology Report ---
APPROVED REPORT EKG Measurement Heart [id number] Sinus rhythm with 1st degree AV block with occasional premature ventricular complexes Inferior infarct, age undetermined Anterior infarct, age undetermined Abnormal ECG
== END 2017-09-13 21:17 | disposition home or self-care (01) ==
LOC: EDBD 19:51 → EMR 19:52
DX: R07.9 Chest pain, unspecified (principal); J44.9 Chronic obstructive pulmonary disease, unspecified; E11.40 Type 2 diabetes mellitus with diabetic neuropathy, unspecified; Z95.5 Presence of coronary angioplasty implant and graft
CPT/HCPCS: 93005; 99283

== ENCOUNTER 2017-10-04 13:37 | Inpatient (IN) | payer MEDICARE, OTHER ==
[~2017-10-04] VITALS: Ht 175.3 cm; Wt 141.3 kg
[2017-10-04] VITALS (8 sets, daily range): BP systolic 157–184; BP diastolic 69–115
[2017-10-04] MEDS ORDERED: Morphine Sulfate 4mg/ml Inj IVP ONE ×3 (14:00→21:30)
[2017-10-04] MEDS ORDERED: Mylanta II UD 30ml ORAL PRN (14:30)
[2017-10-04] MEDS ORDERED: Miralax 17gm pkt ORAL PRN (14:30)
[2017-10-04] MEDS ORDERED: Zolpidem 5mg tab ORAL PRN (14:30)
[2017-10-04] MEDS ORDERED: Albuterol/Ipratropium 3ml neb HHN PRN (14:30)
[2017-10-04 14:52] LABS: ANION GAP 13 mmol/L (5-15); CALCIUM 8.9 MG/DL (8.5-10.1); CARBON DIOXIDE 23 MMOL/L (21-32); CHLORIDE 99 MMOL/L (98-107); CREATININE 7.2 MG/DL (0.55-1.30); POTASSIUM 4.6 MMOL/L (3.5-5.1); SODIUM 135 MMOL/L (136-145)
[2017-10-04 14:57] LABS: BASOPHILS % (AUTO) 1.3 % (0.0-2.0); LYMPHOCYTES % (AUTO) 14.3 % (20.0-45.0); MEAN CORPUSCULAR HEMOGLOBIN 23.2 PG (27.0-31.0); MEAN CORPUSCULAR HGB CONC 28.1 G/DL (32.0-36.0); MEAN CORPUSCULAR VOLUME 83 FL (80-99); MEAN PLATELET VOLUME 6.9 FL (6.5-10.1); MONOCYTES % (AUTO) 9.6 % (1.0-10.0); NEUTROPHILS % (AUTO) 72.7 % (45.0-75.0); PLATELET COUNT 225 K/UL (150-450); RED BLOOD COUNT 4.41 M/UL (4.20-5.40); RED CELL DISTRIBUTION WIDTH 15.6 % (11.6-14.8); WHITE BLOOD COUNT 9.2 K/UL (4.8-10.8)
[2017-10-04 14:57] LABS: ALANINE AMINOTRANSFERASE 17 U/L (12-78); ALBUMIN/GLOBULIN RATIO 1.4 (1.0-2.7); ASPARTATE AMINO TRANSFERASE 19 U/L (15-37); LIPASE 78 U/L (73-393); TOTAL PROTEIN 7.4 G/DL (6.4-8.2)
--- NOTE | 2017-10-04 15:34 | Diagnostic Imaging Report ---
Indication: Abdominal pain Technique: Continuous helical transaxial imaging of the abdomen and pelvis was obtained from the lung bases to the pubic symphysis during intravenous contrast administration. Coronal 2-D reformats were also obtained. Study obtained in a Siemens sensation [address] Automatic Exposure Control was utilized. Total Dose length Product (DLP): [address] Dose Index Volume (CTDIvol): 0.15, 19.75, 19.75 mGy Comparison: None Findings: There is a hiatal hernia. There is a trace pericardial effusion and cardiomegaly present. Lung bases are clear. There is moderate right hydronephrosis/hydroureter there are at least 2 or 3 tiny radiopaque stones suspected in the distal ureter ( 1-3 mm). The most proximal stone is suspected on image 64 (series 3). The second stone is suspected within the distal ureter image 68. A third stone may be present in the distal right ureter image 71. This stone is about a centimeter or 2 proximal to the UVJ. Imaging is limited because of large body habitus which results in diminished resolution and [id number] ratio. The left kidney is unremarkable. No other stones identified within the collecting system or kidney. Gallbladder is distended. Umbilical hernia containing fat demonstrated. In addition there is protrusion of the abdomen and stretching of the muscular fascia or linea alba. A moderate amount stool in the colon. Urinary bladder is unremarkable. Uterus is absent. Impression: Moderate right hydronephrosis/hydroureter secondary to a suspected tiny stones within the distal right ureter. Limited evaluation due to body habitus. Anterior abdominal wall hernia in the area of the umbilicus containing fat. Status post hysterectomy. Trace pericardial effusion. Generalized cardiomegaly. Hiatal hernia The CT scanner at [facility] is accredited by the [employer] and the scans are performed using dose optimization techniques as appropriate to a performed exam including Automatic Exposure control.
--- NOTE | 2017-10-04 16:26 | Emergency Room Report ---
History of Present Illness General Chief Complaint: Abdominal Pain Source: Patient, Medical Record Present Illness HPI 62-year-old female presents ED complaining of abdominal pain. started 3 days ago. Pain is sharp, 10 out of 10, nonradiating. Notes multiple episodes of nausea and vomiting. Patient states she has history of hernia. History of dialysis Sunday and Sunday. She missed dialysis today because of the pain. Denies chest pain or shortness of breath. No other aggravating or leading factors. Denies any other associated symptoms Allergies: Coded Allergies: NO KNOWN ALLERGIES (Unverified Allergy, Unknown, 10/15/15) Patient History Past Medical History: CAD, asthma, COPD, renal disease, dialysis Pertinent Family History: none Social History: Denies: smoking, alcohol use, drug use Now: No Immunizations: UTD Reviewed Nursing Documentation: PMH: Agreed, PSxH: Agreed Nursing Documentation-PMH Past Medical History: No History, Except For Hx Hypertension: Yes - cardiac stents 2010 Hx Pacemaker: No - HIV Hx Asthma: Yes Hx COPD: Yes Hx Diabetes: Yes Hx Cancer: No Hx Dialysis: Yes - Sunday, , Sunday Hx Neurological Problems: No Hx Peripheral Neuropathy: Yes - secondary to DM Hx Tremors: Yes Hx Vertigo: Yes Hx Dizziness: Yes Hx Syncope: Yes Hx Headaches: Yes Hx Weakness: Yes Hx Fatigue: Yes Review of Systems All Other Systems: negative except mentioned in HPI Physical Exam Vital Signs Date Time Temp Pulse Resp B/P (MAP) Pulse Ox O2 Delivery O2 Flow Rate FiO2 10/04/17 13:24 98.2 74 20 147/102 99 Room Air Sp02 EP Interpretation: reviewed, normal General Appearance: alert, GCS 15, non-toxic, obese Head: normocephalic, atraumatic Eyes: bilateral eye normal inspection, bilateral eye PERRL ENT: hearing grossly normal, normal pharynx, no angioedema, normal voice Neck: full range of motion, supple/symm/no masses Respiratory: chest non-tender, lungs clear, normal breath sounds, speaking full sentences Cardiovascular #1: regular rate, rhythm, no edema Cardiovascular #2: 2+ carotid (R), 2+ carotid (L), 2+ radial (R), 2+ radial (L) , 2+ dorsalis pedis (R), 2+ dorsalis pedis (L) Gastrointestinal: normal bowel sounds, soft, non-distended, no guarding, no rebound, tenderness Rectal: deferred Genitourinary: normal inspection, no CVA tenderness Musculoskeletal: back normal, gait/station normal, normal range of motion, non- tender Neurologic: alert, oriented x3, responsive, motor strength/tone normal, sensory intact, speech normal Psychiatric: judgement/insight normal, memory normal, mood/affect normal, no suicidal/homicidal ideation Reflexes: 3+ bicep (R), 3+ bicep (L), 3+ tricep (R), 3+ tricep (L), 3+ knee (R) , 3+ knee (L) Skin: normal color, no rash, warm/dry, well hydrated Lymphatic: no adenopathy Medical Decision Making Diagnostic Impression: Primary Impression: Intractable abdominal pain Additional Impression: ESRD (end stage renal disease) on dialysis ER Course Hospital Course 62-year-old female presents to ED with abdominal pain and vomiting. History of end-stage renal disease on dialysis Differential diagnoses include: BPH, cystitis, pyelonephritis, kidney stone Clinical course Patient placed on stretcher. health claims examiner. After initial history and physical I ordered labs, IV fluids, UA, pain medication and CT scan Patient has difficult IV access; I placed peripheral EJ line Labs - no leukocytosis, Hb/Hct stable BUN/Cr elevated, K ok, trop 0.042 CT abdomen and pelvis - hydronephrosis, hiatal hernia Patient continues to have pain. We will admit for intractable pain. Patient will require dialysis given contrast administration Case discussed with Dr. Lan and he agreed to accept the patient to his service for further care and support I feel this is a highly complex case requiring extensive working including EKG/ Rhythm strip, Xray/CT/US, Blood/urine lab work, repeat exams while in ED, and administration of strong opiates/narcotics for pain control, admission to hospital or close patient follow up. Diagnosis - intractable abd pain, ESRD on dialysis Patient admitted to telemety in serious condition Labs Test 10/04/17 14:07 10/04/17 14:30 Sodium Level 135 MMOL/L (136-145) Potassium Level 4.6 MMOL/L (3.5-5.1) Chloride Level 99 MMOL/L (98-107) Carbon Dioxide Level 23 MMOL/L (21-32) Anion Gap 13 mmol/L (5-15) Blood Urea Nitrogen 29 mg/dL (7-18) Creatinine 7.2 MG/DL (0.55-1.30) Estimat Glomerular Filtration Rate 7.0 mL/min (>60) Glucose Level 198 MG/DL (74-106) Calcium Level 8.9 MG/DL (8.5-10.1) Total Bilirubin 0.5 MG/DL (0.2-1.0) Aspartate Amino Transf (AST/SGOT) 19 U/L (15-37) Alanine Aminotransferase (ALT/SGPT) 17 U/L (12-78) Alkaline Phosphatase 54 U/L (46-116) Troponin I 0.042 ng/mL (0.000-0.056) Total Protein 7.4 G/DL (6.4-8.2) Albumin 4.3 G/DL (3.4-5.0) Globulin 3.1 g/dL Albumin/Globulin Ratio 1.4 (1.0-2.7) Lipase 78 U/L (73-393) White Blood Count 9.2 K/UL (4.8-10.8) Red Blood Count 4.41 M/UL (4.20-5.40) Hemoglobin 10.3 G/DL (12.0-16.0) Hematocrit 36.5 % (37.0-47.0) Mean Corpuscular Volume 83 FL (80-99) Mean Corpuscular Hemoglobin 23.2 PG (27.0-31.0) Mean Corpuscular Hemoglobin Concent 28.1 G/DL (32.0-36.0) Red Cell Distribution Width 15.6 % (11.6-14.8) Platelet Count 225 K/UL (150-450) Mean Platelet Volume 6.9 FL (6.5-10.1) Neutrophils (%) (Auto) 72.7 % (45.0-75.0) Lymphocytes (%) (Auto) 14.3 % (20.0-45.0) Monocytes (%) (Auto) 9.6 % (1.0-10.0) Eosinophils (%) (Auto) 2.0 % (0.0-3.0) Basophils (%) (Auto) 1.3 % (0.0-2.0) CT/MRI/US Diagnostic Results CT/MRI/US Diagnostic Results : Imaging Test Ordered: CT A/P Impression multiple distal ureter stones on right, with hydronephrosis Last Vital Signs Date Time Temp Pulse Resp B/P (MAP) Pulse Ox O2 Delivery O2 Flow Rate FiO2 10/04/17 15:18 97.0 10/04/17 14:28 73 15 157/69 99 Room Air Status: improved Disposition: ADMITTED INPATIENT Condition: Serious Referrals: BRIE LAN (PCP) MICA ZAMORA M.D. Oct 04, 2017 16:26
[2017-10-04 16:35] LABS: APPEARANCE,URINE CLOUDY; KETONES,URINE NEGATIVE (NEGATIVE); LEUKOCYTE ESTERASE ,URINE 1+ (NEGATIVE); NITRITE,URINE NEGATIVE (NEGATIVE); PH,URINE 5 (4.5-8.0); PROTEIN,URINE 4+ (NEGATIVE); UROBILINOGEN,URINE NORMAL MG/DL (0.0-1.0)
[2017-10-04 16:43] LABS: RBC,URINE 0-2 /HPF (0 - 2); SQUAMOUS EPITHELIAL CELL,UR FEW /LPF (NONE/OCC); WBC,URINE 0-2 /HPF (0 - 2)
[2017-10-04 16:44] LABS: AMORPHOUS SEDIMENT,UR MANY /LPF; BACTERIA,URINE MODERATE /HPF
--- NOTE | 2017-10-04 19:09 | Consultation ---
History of Present Illness General Date patient seen: Oct 04, 2017 Chief Complaint: Abdominal Pain Reason for Consultation: inpatient management Present Illness HPI 62-year-old female with hx of morbid obesity, ESRF on HD presented to ED complaining of abdominal pain for 3 days ago. Pain is sharp, 10 out of 10, nonradiating. Notes multiple episodes of nausea and vomiting. She missed dialysis today because of the pain. Denies chest pain or shortness of breath. No other aggravating or leading factors. Denies any other associated symptoms. Allergies: Coded Allergies: NO KNOWN ALLERGIES (Unverified Allergy, Unknown, 10/15/15) Medication History Scheduled Acetaminophen* (Acetaminophen 325MG Tablet*), 650 MG ORAL Q6H, (Reported) Allopurinol* (Zyloprim*), 100 MG ORAL DAILY, (Reported) Amlodipine Besylate* (Amlodipine Besylate*), 10 MG ORAL DAILY, (Reported) Ascorbic Acid* (Ascorbic Acid*), 500 MG ORAL DAILY, (Reported) Aspirin Ec* (Aspirin Ec*), 81 MG ORAL DAILY, (Reported) Atorvastatin Calcium* (Atorvastatin Calcium*), 20 MG ORAL BEDTIME, (Reported) Docusate Sodium (Dok), 100 MG PO BID, (Reported) Ferrous Sulfate* (Ferrous Sulfate*), 325 MG ORAL DAILY, (Reported) Furosemide* (Lasix*), 20 MG ORAL DAILY, (Reported) Glimepiride* (Amaryl*), 4 MG ORAL BEFORE BREAKFAST Heparin Sod (Porcine) (Heparin Sodium*), 5,000 UNITS SUBQ EVERY 12 HOURS, ( Reported) Hydralazine HCl (Hydralazine HCl), 10 MG ORAL EVERY 6 HOURS, (Reported) Hydralazine Hcl* (Hydralazine Hcl*), 50 MG ORAL EVERY 8 HOURS, (Reported) Hydrocodone Bit/Acetaminophen 5-325* ([place] 5-325*), 1 TAB ORAL Q8HR, (Reported) Insulin Aspart (Novolog Flexpen), 1 UNITS SUBQ AC+HS, (Reported) Insulin Detemir (Levemir Flexpen), 10 UNITS SUBQ BEDTIME Isosorbide Dinitrate (Isosorbide Dinitrate*), 30 MG ORAL BID, (Reported) Lifitegrast (Xiidra), 1 EACH OP BID, (Reported) Losartan Potassium* (Losartan Potassium*), 50 MG ORAL DAILY, (Reported) Mupirocin Nasal (Bactroban Nasal), 1 APPLIC NASAL TID, (Reported) Nitrofurantoin Monohyd/M-Cryst* (Macrobid 100 Mg*), 100 MG ORAL EVERY 12 HOURS Pantoprazole* (Pantoprazole*), 40 MG ORAL DAILY, (Reported) Ranitidine Hcl* (Zantac*), 150 MG ORAL DAILY, (Reported) Sevelamer Carbonate (Renvela), 800 MG ORAL THREE TIMES A DAY, (Reported) Scheduled PRN Acetaminophen (Tylenol), 650 MG ORAL Q4HR PRN for Mild Pain/Temp > 100.5, ( Reported) Al Hydroxide/mg Hydroxide (Mag-Al Plus Suspension), 30 ML PO Q6HR PRN for indigestion, (Reported) Albuterol Sulfate* (Albuterol Sulfate Hhn*), 3 ML INH Q6H PRN for Shortness of Breath, (Reported) Clonidine Hcl* (Catapres*), 0.1 MG ORAL EVERY 4 HOURS PRN for For High Blood Pressure, (Reported) Diphenhydramine Hcl* (Diphenhydramine Hcl*), 25 MG ORAL Q6H PRN for Itching, ( Reported) Insulin Regular, Human* (Novolin R*), 0 SUBQ AC+HS PRN for Sliding Scale, ( Reported) Nitroglycerin (Nitrostat), 0.4 MG SL Q5M X3 DOSES PRN for CHEST PAIN, (Reported) Ondansetron (Zofran), 4 MG ORAL Q6H PRN for Nausea & Vomiting, (Reported) Polyethylene Glycol 3350* (Miralax*), 17 GM ORAL DAILY PRN for Constipation, ( Reported) Temazepam* (Restoril*), 15 MG ORAL BEDTIME PRN for Insomnia, (Reported) Tramadol Hcl* (Ultram*), 50 MG ORAL Q6H PRN for For Pain, (Reported) Zolpidem Tartrate* (Zolpidem Tartrate*), 5 MG ORAL BEDTIME PRN for Insomnia, ( Reported) Miscellaneous Medications Calcium Acetate (Calcium Acetate), 667 MG PO, (Reported) Folic Acid/Vitamin B Comp W-C (Dialyvite 800 Tablet), 0.8 MG PO, (Reported) Insulin Human Lispro (Humalog), 0 SUBQ, (Reported) Lactulose (Lactulose*), 15 ML ORAL, (Reported) Discontinued Medications Clonidine Hcl* (Catapres*), 0.2 MG ORAL EVERY 4 HOURS, (Reported) Discontinued Reason: Pt stopped taking med Folic Acid* (Folic Acid*), 1 MG ORAL DAILY, (Reported) Discontinued Reason: Pt stopped taking med Folic Acid/Vitamin B Comp W-C (Dialyvite 800 Tablet), 0.8 MG PO DAILY, (Reported ) Discontinued Reason: Pt stopped taking med Levofloxacin* (Levaquin*), 250 MG ORAL DAILY, (Reported) Discontinued Reason: Therapy completed Metoprolol Tartrate* (Metoprolol Tartrate*), 50 MG ORAL EVERY 12 HOURS, ( Reported) Discontinued Reason: Pt stopped taking med Morphine Sulfate* (Morphine Sulfate*), 2 MG IV Q4HR PRN for Severe Breakthru Pain (>7), (Reported) Discontinued Reason: Therapy completed Morphine Sulfate* (Morphine Sulfate*), 2 MG IV Q4HR PRN for Moderate Breakthru Pain (5-7), (Reported) Discontinued Reason: Therapy completed Morphine Sulfate* (Morphine Sulfate*), 1 MG IV Q4HR PRN for Mild Pain (Pain Scale 1-3), (Reported) Discontinued Reason: Therapy completed Na Phos,M-B/Na Phos,Di-Ba* (Fleet Enema*), 133 ML RECTAL DAILY PRN for Constipation, (Reported) Discontinued Reason: Therapy completed Ranitidine Hcl* (Ranitidine Hcl*), 50 MG IV DAILY, (Reported) Discontinued Reason: Therapy completed Sevelamer Carbonate (Renvela), 800 MG ORAL THREE TIMES A DAY, (Reported) Discontinued Reason: Therapy completed Temazepam* (Restoril*), 15 MG ORAL BEDTIME PRN for Insomnia, (Reported) Discontinued Reason: Therapy completed [Probiotic Digest ], (Reported) Discontinued Reason: Therapy completed Patient History Healthcare decision maker N Resuscitation status Advanced Directive on File Past Medical/Surgical History Past Medical/Surgical History: (1) ESRD (end stage renal disease) on dialysis (2) CHF (congestive heart failure) (3) Obesity (4) Diabetes Review of Systems All Other Systems: negative except mentioned in HPI Physical Exam General Appearance: WD/WN Lines, tubes and drains: peripheral HEENT: normocephalic, atraumatic Neck: non-tender, normal alignment Respiratory/Chest: chest wall non-tender, lungs clear, normal breath sounds Abdomen: normal bowel sounds Genitourinary/Rectal: normal genital exam, normal prostate exam Extremities: normal range of motion, normal inspection Last 24 Hour Vital Signs Date Time Temp Pulse Resp B/P (MAP) Pulse Ox O2 Delivery O2 Flow Rate FiO2 10/04/17 18:08 184/115 10/04/17 17:47 72 18 184/115 100 Room Air 10/04/17 15:18 97.0 10/04/17 14:28 97.0 73 15 157/69 99 Room Air 10/04/17 13:24 98.2 74 20 147/102 99 Room Air Intake and Output 10/04/17 10/05/17 19:00 07:00 Intake Total 0 ml Balance 0 ml Intake Oral 0 ml Laboratory Tests Test 10/04/17 14:07 10/04/17 14:30 10/04/17 16:05 Sodium Level 135 MMOL/L (136-145) L Potassium Level 4.6 MMOL/L (3.5-5.1) Chloride Level 99 MMOL/L (98-107) Carbon Dioxide Level 23 MMOL/L (21-32) Anion Gap 13 mmol/L (5-15) Blood Urea Nitrogen 29 mg/dL (7-18) H Creatinine 7.2 MG/DL (0.55-1.30) H Estimat Glomerular Filtration Rate 7.0 mL/min (>60) Glucose Level 198 MG/DL (74-106) H Calcium Level 8.9 MG/DL (8.5-10.1) Total Bilirubin 0.5 MG/DL (0.2-1.0) Aspartate Amino Transf (AST/SGOT) 19 U/L (15-37) Alanine Aminotransferase (ALT/SGPT) 17 U/L (12-78) Alkaline Phosphatase 54 U/L (46-116) Troponin I 0.042 ng/mL (0.000-0.056) Total Protein 7.4 G/DL (6.4-8.2) Albumin 4.3 G/DL (3.4-5.0) Globulin 3.1 g/dL Albumin/Globulin Ratio 1.4 (1.0-2.7) Lipase 78 U/L (73-393) White Blood Count 9.2 K/UL (4.8-10.8) Red Blood Count 4.41 M/UL (4.20-5.40) Hemoglobin 10.3 G/DL (12.0-16.0) L Hematocrit 36.5 % (37.0-47.0) L Mean Corpuscular Volume 83 FL (80-99) Mean Corpuscular Hemoglobin 23.2 PG (27.0-31.0) L Mean Corpuscular Hemoglobin Concent 28.1 G/DL (32.0-36.0) L Red Cell Distribution Width 15.6 % (11.6-14.8) H Platelet Count 225 K/UL (150-450) Mean Platelet Volume 6.9 FL (6.5-10.1) Neutrophils (%) (Auto) 72.7 % (45.0-75.0) Lymphocytes (%) (Auto) 14.3 % (20.0-45.0) L Monocytes (%) (Auto) 9.6 % (1.0-10.0) Eosinophils (%) (Auto) 2.0 % (0.0-3.0) Basophils (%) (Auto) 1.3 % (0.0-2.0) Urine Color Pale yellow Urine Appearance Cloudy Urine pH 5 (4.5-8.0) Urine Specific Bryant 1.010 (1.005-1.035) Urine Protein 4+ (NEGATIVE) H Urine Glucose (UA) 1+ (NEGATIVE) H Urine Ketones Negative (NEGATIVE) Urine Occult Blood 1+ (NEGATIVE) H Urine Nitrite Negative (NEGATIVE) Urine Bilirubin Negative (NEGATIVE) Urine Urobilinogen Normal MG/DL (0.0-1.0) Urine Leukocyte Esterase 1+ (NEGATIVE) H Urine RBC 0-2 /HPF (0 - 2) Urine WBC 0-2 /HPF (0 - 2) Urine Squamous Epithelial Cells Few /LPF (NONE/OCC) Urine Amorphous Sediment Many /LPF (NONE) H Urine Bacteria Moderate /HPF (NONE) H Height (Feet): 5 Height (Inches): 5.00 Weight (Pounds): 260 Medications Current Medications Medications (Trade) Dose Ordered Sig/Josi Route PRN Reason Start Time Stop Time Status Last Admin Dose Admin Acetaminophen (Tylenol) 650 mg Q4H PRN ORAL fever 10/04/17 14:30 11/03/17 14:29 Al Hydroxide/Mg Hydroxide (Mylanta II) 30 ml Q6H PRN ORAL dyspepsia 10/04/17 14:30 11/03/17 14:29 Albuterol/ Ipratropium (Albuterol/ Ipratropium) 3 ml Q6HRT PRN HHN dyspnea 10/04/17 14:30 10/09/17 14:29 Clonidine HCl (Catapres) 0.1 mg Q4H PRN ORAL For High Blood Pressure 10/04/17 14:30 11/03/17 14:29 Dextrose (Dextrose 50%) STAT PRN IV Hypoglycemia 10/04/17 14:30 11/03/17 14:29 Dextrose (Dextrose 50%) STAT PRN IV Hypoglycemia 10/04/17 14:30 11/03/17 14:29 Furosemide (Lasix) 100 mg EVERY 8 HOURS PRN IV dyspnea 10/04/17 22:00 11/03/17 21:59 Heparin Sodium (Porcine) (Heparin 5000 units/ml) 5,000 units EVERY 12 HOURS SUBQ 10/04/17 21:00 11/03/17 20:59 Insulin Aspart (NovoLOG) BEFORE MEALS AND HS SUBQ 10/04/17 16:30 11/03/17 16:29 Ondansetron HCl (Zofran) 4 mg Q6H PRN IVP Nausea & Vomiting 10/04/17 14:30 11/03/17 14:29 Polyethylene Glycol (Miralax) 17 gm HSPRN PRN ORAL Constipation 10/04/17 14:30 11/03/17 14:29 Zolpidem Tartrate (Ambien) 5 mg HSPRN PRN ORAL Insomnia 10/04/17 14:30 10/11/17 14:29 Assessment/Plan Problem List: (1) Intractable abdominal pain ICD Codes: R10.9 - Unspecified abdominal pain SNOMED: 20015665, 553240388 (2) CHF (congestive heart failure) ICD Codes: I50.9 - Heart failure, unspecified SNOMED: 47645320 (3) ESRD (end stage renal disease) on dialysis ICD Codes: N18.6 - End stage renal failure on dialysis; Z99.2 - Dependence on renal dialysis SNOMED: 677203551 (4) Diabetes ICD Codes: E11.9 - Diabetes SNOMED: 10920172 (5) Obesity ICD Codes: E66.9 - Obesity SNOMED: 124977931 Assessment/Plan NPO GI f/u symptomatic treatment sliding scale, diabetic diet. JONES BARAKAT Oct 04, 2017 19:09
--- NOTE | 2017-10-04 22:00 | History and Physical Report ---
DATE OF ADMISSION: 10/04/2017 TIME SEEN: At 3 p.m. CONSULTANTS: 1. Meghana Murillo M.D. 2. Mireille Quinones M.D. 3. Shalom Costa M.D. 4. Jamison Garcia M.D. CHIEF COMPLAINT: Nausea, vomiting, shortness of breath, ESRD, and abdominal pain. BRIEF HISTORY: This is a 62-year-old female, who lives at home with history of ESRD presented with increased nausea and vomiting for two days, getting worse. The patient is very weak, came to [facility], diagnosed with above, being admitted shortly, currently slightly anxious, slightly weak in bed, in the ER gurney, oriented x3 in slight distress, . PAST MEDICAL HISTORY: Include ESRD, hypertension, CHF, obesity, abdominal pain. PAST SURGICAL HISTORY: Shunt. MEDICATIONS: Include heparin, NovoLog, Tylenol, MiraLAX, Zofran, Ambien, Mylanta, Catapres, furosemide, albuterol. ALLERGIES: Denies. SOCIAL HISTORY: No smoking. No alcohol. No intravenous drug use. FAMILY HISTORY: Noncontributory. PHYSICAL EXAMINATION: GENERAL: Lethargic in bed, oriented x2, no acute distress. VITAL SIGNS: Temperature 97 degrees, pulse 93, respirations 15, and blood pressure 157/69. CARDIOVASCULAR: No murmur. LUNGS: Poor exchange. ABDOMEN: Bowel sounds are positive. Nontender and nondistended. EXTREMITIES: No cyanosis or clubbing. There is 1+ edema. NEUROLOGIC: The patient moves all extremities but slightly weak. LABORATORY AND DIAGNOSTIC DATA: Hemoglobin 10.3 otherwise CBC is normal. BMP shows sodium 135, BUN and creatinine 29 and 7.2, glucose 198. ASSESSMENT: 1. Nausea and vomiting. 2. Abdominal pain. 3. End-stage renal disease. 4. Congestive heart failure. 5. Hypertension. 6. Obesity. 7. Diabetes. 8. Anemia. PLAN: 1. Resume home medications. 2. Antiemetics p.r.n. 3. Dialysis p.r.n. 4. Blood pressure and blood sugar control. 5. Dietary evaluation. 6. OT/PT and dietary evaluation. 7. CBC and BMP in the morning. 8. Dr. Murillo, Dr. Quinones, Dr. Costa and Dr. Garcia to consult. Roderick Henning D.O. DR: Bret JOB#: [id number] CC:
[2017-10-04] MEDS: Heparin 5000 units/ml inj SUBQ SCH (22:37)
[2017-10-04] MEDS: NovoLOG Insulin Flexpen SUBQ SCH ×2 (23:02→23:18)
[2017-10-05] VITALS (9 sets, daily range): BP systolic 130–195; BP diastolic 74–101
[2017-10-05] MEDS: Morphine Sulfate 4mg/ml Inj IVP PRN (01:19)
[2017-10-05] MEDS: NovoLOG Insulin Flexpen SUBQ SCH ×4 (06:36→21:00)
[2017-10-05 08:42] LABS: EOSINOPHILS % (AUTO) 0.6 % (0.0-3.0); LYMPHOCYTES % (AUTO) 12.7 % (20.0-45.0); MEAN CORPUSCULAR HEMOGLOBIN 23.7 PG (27.0-31.0); MEAN CORPUSCULAR HGB CONC 28.4 G/DL (32.0-36.0); MEAN CORPUSCULAR VOLUME 84 FL (80-99); MEAN PLATELET VOLUME 7.5 FL (6.5-10.1); MONOCYTES % (AUTO) 7.7 % (1.0-10.0); PLATELET COUNT 234 K/UL (150-450); RED BLOOD COUNT 4.38 M/UL (4.20-5.40); RED CELL DISTRIBUTION WIDTH 15.9 % (11.6-14.8); WHITE BLOOD COUNT 8.4 K/UL (4.8-10.8)
[2017-10-05 08:55] LABS: ALANINE AMINOTRANSFERASE 16 U/L (12-78); ALBUMIN/GLOBULIN RATIO 1.2 (1.0-2.7); ANION GAP 12 mmol/L (5-15); ASPARTATE AMINO TRANSFERASE 11 U/L (15-37); CALCIUM 8.7 MG/DL (8.5-10.1); CARBON DIOXIDE 23 MMOL/L (21-32); CHLORIDE 100 MMOL/L (98-107); CHOLESTEROL 134 MG/DL (< 200); CHOLESTEROL/HDL RATIO 2.4 (3.3-4.4); CREATININE 7.9 MG/DL (0.55-1.30); GLOMERULAR FILTRATION RATE 6.3 mL/min (>60); POTASSIUM 4.8 MMOL/L (3.5-5.1); SODIUM 135 MMOL/L (136-145); TOTAL PROTEIN 7.3 G/DL (6.4-8.2)
[2017-10-05] MEDS: Heparin 5000 units/ml inj SUBQ SCH ×2 (09:00→21:00)
[2017-10-05 09:05] LABS: HEMOGLOBIN A1C 8.1 % (4.3-6.0)
--- NOTE | 2017-10-05 11:31 | GI Initial Consult Note ---
History of Present Illness General Date patient seen: Oct 05, 2017 Time patient seen: 11:17 Reason for Hospitalization: Abdominal Pain Referring physician: BRIE LAN Reason for Consultation: ABDOMINAL PAIN Present Illness HPI 62-year-old female presents ED complaining of abdominal pain. started 3 days ago. Pain is sharp, 10 out of 10, nonradiating. Notes multiple episodes of nausea and vomiting. Patient states she has history of hernia. History of dialysis Sunday and Sunday. She missed dialysis today because of the pain. Denies chest pain or shortness of breath. No other aggravating or leading factors. Denies any other associated symptoms. GI consulted for abdominal pain. HPI as noted above. Pt seen on floor, awake A &Ox4 NAD with no active s/sx of N/V/D. Abdomen soft, lower abdominal tenderness. Last BM yesterday, small. Episode of emesis last night. History of colonoscopy in [address] AP shows moderate right hydronephrosis/hydroureter secondary to a suspected tiny stones within the distal right ureter. Presents today mild anemia most likely due to renal disease. Home Meds Active Scripts Nitrofurantoin Monohyd/M-Cryst* (MACROBID 100 MG*) 100 Mg Capsule, 100 MG ORAL EVERY 12 HOURS for 7 Days, #13 CAP Prov:KALANI NELSON M.D. 05/08/17 Glimepiride* (AMARYL*) 4 Mg Tablet, 4 MG ORAL BEFORE BREAKFAST, #1 TAB Prov:Cece Scott [employer]AFETY BELT INSTALLER 12/10/15 Insulin Detemir (LEVEMIR FLEXPEN) 100 Units/Ml Pen, 10 UNITS SUBQ BEDTIME, #1 EA Prov:Rod (Vancvalerie)Chastity SAFETY BELT INSTALLER 11/18/14 Reported Medications Zolpidem Tartrate* (ZOLPIDEM TARTRATE*) 5 Mg Tablet, 5 MG ORAL BEDTIME Y for Insomnia, TAB 0 Refills 04/01/17 Insulin Human Lispro (Humalog) 100 Unit/1 Ml Vial, 0 SUBQ, #1 UNIT 0 Refills 03/29/17 Lifitegrast (Xiidra) 1 Each Droperette, 1 EACH OP BID 03/29/17 Hydralazine Hcl* (HYDRALAZINE HCL*) 50 Mg Tablet, 50 MG ORAL EVERY 8 HOURS, TAB 03/29/17 Ranitidine Hcl* (ZANTAC*) 150 Mg Tablet, 150 MG ORAL DAILY, #30 TAB 0 Refills 03/29/17 Losartan Potassium* (LOSARTAN POTASSIUM*) 50 Mg Tablet, 50 MG ORAL DAILY, TAB 09/26/16 Ascorbic Acid* (ASCORBIC ACID*) 500 Mg Tablet, 500 MG ORAL DAILY, TAB 09/26/16 Folic Acid/Vitamin B Comp W-C (DIALYVITE 800 TABLET) 0.8 Mg Tablet, 0.8 MG PO, TAB 09/26/16 Isosorbide Dinitrate (ISOSORBIDE DINITRATE*) 5 Mg Tablet, 30 MG ORAL BID, #30 TAB 0 Refills 09/26/16 Furosemide* (LASIX*) 20 Mg Tablet, 20 MG ORAL DAILY, TAB 09/26/16 Calcium Acetate (CALCIUM ACETATE) 667 Mg Capsule, 667 MG PO, CAP 09/26/16 Ferrous Sulfate* (FERROUS SULFATE*) 325 Mg Tablet, 325 MG ORAL DAILY, #30 TAB 0 Refills 09/26/16 Mupirocin Nasal (BACTROBAN NASAL) 1 Gm Oint...g., 1 APPLIC NASAL TID for 7 Days , GM Elimination of MRSA colonization: Approximately one-half of the ointment from the single-use tube should be applied into one nostril and the other half into the other nostril twice daily for 5 days 08/15/16 Insulin Aspart (Novolog Flexpen) 100 Unit/1 Ml Insuln.pen, 1 UNITS SUBQ AC+HS 08/15/16 Temazepam* (RESTORIL*) 15 Mg Capsule, 15 MG ORAL BEDTIME Y for Insomnia, CAP 08/15/16 Sevelamer Carbonate (Renvela) 800 Mg Tablet, 800 MG ORAL THREE TIMES A DAY, TAB 08/15/16 Polyethylene Glycol 3350* (MIRALAX*) 17 Gm Powd.pack, 17 GM ORAL DAILY Y for Constipation, PACKET 08/15/16 Nitroglycerin (NITROSTAT) 0.4 Mg Tab.subl, 0.4 MG SL Q5M X3 DOSES Y for CHEST PAIN, #25 TAB 0 Refills 08/15/16 Hydrocodone Bit/Acetaminophen 5-325* (NORCO 5-325*) 1 Each Tablet, 1 TAB ORAL Q8HR, TAB 0 Refills 08/15/16 Hydralazine HCl (Hydralazine HCl) 10 Mg Tablet, 10 MG ORAL EVERY 6 HOURS, TAB 08/15/16 Heparin Sod (Porcine) (HEPARIN SODIUM*) 5 000/1 Ml Vial, 5000 UNITS SUBQ EVERY 12 HOURS, VIAL 08/15/16 Diphenhydramine Hcl* (DIPHENHYDRAMINE HCL*) 25 Mg Capsule, 25 MG ORAL Q6H Y for Itching, #30 CAP 0 Refills 08/15/16 Al Hydroxide/mg Hydroxide (Mag-Al Plus Suspension) 30 Ml Oral.susp, 30 ML PO Q6HR Y for indigestion, ML 08/15/16 Acetaminophen (Tylenol) 325 Mg Tablet, 650 MG ORAL Q4HR Y for Mild Pain/Temp > 100.5, #30 TAB 0 Refills 08/15/16 Clonidine Hcl* (CATAPRES*) 0.1 Mg Tablet, 0.1 MG ORAL EVERY 4 HOURS Y for For High Blood Pressure, TAB 06/01/16 Acetaminophen* (ACETAMINOPHEN 325MG TABLET*) 325 Mg Tablet, 650 MG ORAL Q6H, TAB 10/15/15 Albuterol Sulfate* (ALBUTEROL SULFATE HHN*) 2.5 Mg/3 Ml Vial.neb, 3 ML INH Q6H Y for Shortness of Breath, #30 EA 0 Refills 10/15/15 Lactulose (LACTULOSE*) 20 Gm/30 Ml Solution, 15 ML ORAL, ML 0 Refills 10/15/15 Pantoprazole* (PANTOPRAZOLE*) 40 Mg Tablet.dr, 40 MG ORAL DAILY, TAB 10/15/15 Ondansetron (Zofran) 4 Mg Tab, 4 MG ORAL Q6H Y for Nausea & Vomiting, TAB 10/15/15 Allopurinol* (ZYLOPRIM*) 100 Mg Tablet, 100 MG ORAL DAILY, TAB 10/15/15 Tramadol Hcl* (ULTRAM*) 50 Mg Tablet, 50 MG ORAL Q6H Y for For Pain, #30 TAB 0 Refills 10/15/15 Insulin Regular, Human* (NOVOLIN R*) 100 Unit/1 Ml Vial, 0 SUBQ AC+HS Y for Sliding Scale, UNITS 06/27/14 Aspirin Ec* (ASPIRIN EC*) 81 Mg Tablet.dr, 81 MG ORAL DAILY, TAB 06/27/14 Docusate Sodium (DOK) 100 Mg Capsule, 100 MG PO BID, CAP 06/27/14 Amlodipine Besylate* (AMLODIPINE BESYLATE*) 10 Mg Tablet, 10 MG ORAL DAILY, TAB 06/27/14 Atorvastatin Calcium* (ATORVASTATIN CALCIUM*) 20 Mg Tablet, 20 MG ORAL BEDTIME, TAB 06/27/14 Discontinued Reported Medications Morphine Sulfate* (MORPHINE SULFATE*) 2 Mg/1 Ml Cartridge, 1 MG IV Q4HR Y for Mild Pain (Pain Scale 1-3), EA 04/01/17 Morphine Sulfate* (MORPHINE SULFATE*) 2 Mg/1 Ml Cartridge, 2 MG IV Q4HR Y for Moderate Breakthru Pain (5-7), EA 04/01/17 Clonidine Hcl* (CATAPRES*) 0.2 Mg Tablet, 0.2 MG ORAL EVERY 4 HOURS, TAB 03/29/17 Folic Acid/Vitamin B Comp W-C (DIALYVITE 800 TABLET) 0.8 Mg Tablet, 0.8 MG PO DAILY, TAB 03/29/17 Folic Acid* (FOLIC ACID*) 1 Mg Tablet, 1 MG ORAL DAILY, TAB 03/29/17 Levofloxacin* (LEVAQUIN*) 250 Mg Tablet, 250 MG ORAL DAILY for 4 Days, TAB 12/20/16 Ranitidine Hcl* (RANITIDINE HCL*) 50 Mg/2 Ml Vial, 50 MG IV DAILY, VIAL 08/15/16 Na Phos,M-B/Na Phos,Di-Ba* (FLEET ENEMA*) 133 Ml Enema, 133 ML RECTAL DAILY Y for Constipation, ML 0 Refills 08/15/16 Morphine Sulfate* (MORPHINE SULFATE*) 2 Mg/1 Ml Cartridge, 2 MG IV Q4HR Y for Severe Breakthru Pain (>7), EA 08/15/16 [Probiotic Digest ] No Conflict Check 04/30/15 Temazepam* (RESTORIL*) 15 Mg Capsule, 15 MG ORAL BEDTIME Y for Insomnia, CAP 12/10/14 Metoprolol Tartrate* (METOPROLOL TARTRATE*) 50 Mg Tablet, 50 MG ORAL EVERY 12 HOURS, TAB 0 Refills 06/27/14 Sevelamer Carbonate (Renvela) 800 Mg Tab, 800 MG ORAL THREE TIMES A DAY, TAB 06/27/14 Med list reviewed/reconciled: Yes Allergies: Coded Allergies: NO KNOWN ALLERGIES (Unverified Allergy, Unknown, 10/15/15) Patient History History Provided By: Patient, Medical Record PMH Narrative Past Medical History: CAD, asthma, COPD, renal disease, dialysis Pertinent Family History: none Social History: Denies: smoking, alcohol use, drug use Now: No Immunizations: UTD Reviewed Nursing Documentation: PMH: Agreed, PSxH: Agreed Nursing Documentation-PM Past Medical History: No History, Except For Hx Hypertension: Yes - cardiac stents 2010 Hx Pacemaker: No - HIV Hx Asthma: Yes Hx COPD: Yes Hx Diabetes: Yes Hx Cancer: No Hx Dialysis: Yes - Sunday, , Sunday Hx Neurological Problems: No Hx Peripheral Neuropathy: Yes - secondary to DM Hx Tremors: Yes Hx Vertigo: Yes Hx Dizziness: Yes Hx Syncope: Yes Hx Headaches: Yes Hx Weakness: Yes Hx Fatigue: Yes Social History: Denies: smoking, alcohol use, drug use, other Review of Systems All Other Systems: negative except mentioned in HPI Physical Exam Vital Signs Date Time Temp Pulse Resp B/P (MAP) Pulse Ox O2 Delivery O2 Flow Rate FiO2 10/04/17 13:24 98.2 74 20 147/102 99 Room Air Sp02 EP Interpretation: reviewed, normal Labs Laboratory Tests Test 10/04/17 14:07 10/04/17 14:30 10/04/17 16:05 10/05/17 07:10 Sodium Level 135 MMOL/L (136-145) L 135 MMOL/L (136-145) L Potassium Level 4.6 MMOL/L (3.5-5.1) 4.8 MMOL/L (3.5-5.1) Chloride Level 99 MMOL/L (98-107) 100 MMOL/L (98-107) Carbon Dioxide Level 23 MMOL/L (21-32) 23 MMOL/L (21-32) Anion Gap 13 mmol/L (5-15) 12 mmol/L (5-15) Blood Urea Nitrogen 29 mg/dL (7-18) H 34 mg/dL (7-18) H Creatinine 7.2 MG/DL (0.55-1.30) H 7.9 MG/DL (0.55-1.30) H Estimat Glomerular Filtration Rate 7.0 mL/min (>60) 6.3 mL/min (>60) Glucose Level 198 MG/DL (74-106) H 133 MG/DL (74-106) H Calcium Level 8.9 MG/DL (8.5-10.1) 8.7 MG/DL (8.5-10.1) Total Bilirubin 0.5 MG/DL (0.2-1.0) 0.5 MG/DL (0.2-1.0) Aspartate Amino Transf (AST/SGOT) 19 U/L (15-37) 11 U/L (15-37) L Alanine Aminotransferase (ALT/SGPT) 17 U/L (12-78) 16 U/L (12-78) Alkaline Phosphatase 54 U/L (46-116) 52 U/L (46-116) Troponin I 0.042 ng/mL (0.000-0.056) Total Protein 7.4 G/DL (6.4-8.2) 7.3 G/DL (6.4-8.2) Albumin 4.3 G/DL (3.4-5.0) 4.0 G/DL (3.4-5.0) Globulin 3.1 g/dL 3.3 g/dL Albumin/Globulin Ratio 1.4 (1.0-2.7) 1.2 (1.0-2.7) Lipase 78 U/L (73-393) White Blood Count 9.2 K/UL (4.8-10.8) 8.4 K/UL (4.8-10.8) Red Blood Count 4.41 M/UL (4.20-5.40) 4.38 M/UL (4.20-5.40) Hemoglobin 10.3 G/DL (12.0-16.0) L 10.4 G/DL (12.0-16.0) L Hematocrit 36.5 % (37.0-47.0) L 36.6 % (37.0-47.0) L Mean Corpuscular Volume 83 FL (80-99) 84 FL (80-99) Mean Corpuscular Hemoglobin 23.2 PG (27.0-31.0) L 23.7 PG (27.0-31.0) L Mean Corpuscular Hemoglobin Concent 28.1 G/DL (32.0-36.0) L 28.4 G/DL (32.0-36.0) L Red Cell Distribution Width 15.6 % (11.6-14.8) H 15.9 % (11.6-14.8) H Platelet Count 225 K/UL (150-450) 234 K/UL (150-450) Mean Platelet Volume 6.9 FL (6.5-10.1) 7.5 FL (6.5-10.1) Neutrophils (%) (Auto) 72.7 % (45.0-75.0) 78.0 % (45.0-75.0) H Lymphocytes (%) (Auto) 14.3 % (20.0-45.0) L 12.7 % (20.0-45.0) L Monocytes (%) (Auto) 9.6 % (1.0-10.0) 7.7 % (1.0-10.0) Eosinophils (%) (Auto) 2.0 % (0.0-3.0) 0.6 % (0.0-3.0) Basophils (%) (Auto) 1.3 % (0.0-2.0) 1.0 % (0.0-2.0) Urine Color Pale yellow Urine Appearance Cloudy Urine pH 5 (4.5-8.0) Urine Specific [place] 1.010 (1.005-1.035) Urine Protein 4+ (NEGATIVE) H Urine Glucose (UA) 1+ (NEGATIVE) H Urine Ketones Negative (NEGATIVE) Urine Occult Blood 1+ (NEGATIVE) H Urine Nitrite Negative (NEGATIVE) Urine Bilirubin Negative (NEGATIVE) Urine Urobilinogen Normal MG/DL (0.0-1.0) Urine Leukocyte Esterase 1+ (NEGATIVE) H Urine RBC 0-2 /HPF (0 - 2) Urine WBC 0-2 /HPF (0 - 2) Urine Squamous Epithelial Cells Few /LPF (NONE/OCC) Urine Amorphous Sediment Many /LPF (NONE) H Urine Bacteria Moderate /HPF (NONE) H Hemoglobin A1c 8.1 % (4.3-6.0) H Triglycerides Level 83 MG/DL (0-200) Cholesterol Level 134 MG/DL (< 200) LDL Cholesterol 65 mg/dL (<100) HDL Cholesterol 55 MG/DL (40-60) Cholesterol/HDL Ratio 2.4 (3.3-4.4) L Thyroid Stimulating Hormone (TSH) 0.460 uiU/mL (0.360-3.740) General Appearance: well appearing, no apparent distress, alert, obese Head: normocephalic EENT: PERRL/EOMI, normal ENT inspection Neck: supple Respiratory: normal breath sounds, no respiratory distress Cardiovascular: normal rate Gastrointestinal: normal inspection, non tender, soft, normal bowel sounds, non -distended Rectal: deferred Genitourinary: no CVA tenderness Musculoskeletal: normal inspection, back normal Neurologic: normal inspection, alert, oriented x3, responsive Psychiatric: normal inspection, judgement/insight normal, memory normal Skin: normal inspection, normal color, no rash, warm/dry, palpation normal, well hydrated Lymphatic: normal inspection, no adenopathy Current Medications Current Medications Medications (Trade) Dose Ordered Sig/Josi Route PRN Reason Start Time Stop Time Status Last Admin Dose Admin Acetaminophen (Tylenol) 650 mg Q4H PRN ORAL fever 10/04/17 14:30 11/03/17 14:29 Al Hydroxide/Mg Hydroxide (Mylanta II) 30 ml Q6H PRN ORAL dyspepsia 10/04/17 14:30 11/03/17 14:29 Albuterol/ Ipratropium (Albuterol/ Ipratropium) 3 ml Q6HRT PRN HHN dyspnea 10/04/17 14:30 10/09/17 14:29 Clonidine HCl (Catapres) 0.1 mg Q4H PRN ORAL For High Blood Pressure 10/04/17 14:30 11/03/17 14:29 10/05/17 04:14 Dextrose (Dextrose 50%) STAT PRN IV Hypoglycemia 10/04/17 14:30 11/03/17 14:29 Dextrose (Dextrose 50%) STAT PRN IV Hypoglycemia 10/04/17 14:30 11/03/17 14:29 Furosemide (Lasix) 100 mg EVERY 8 HOURS PRN IV dyspnea 10/04/17 22:00 11/03/17 21:59 Heparin Sodium (Porcine) (Heparin 5000 units/ml) 5,000 units EVERY 12 HOURS SUBQ 10/04/17 21:00 11/03/17 20:59 10/05/17 09:00 Insulin Aspart (NovoLOG) BEFORE MEALS AND HS SUBQ 10/04/17 16:30 11/03/17 16:29 10/05/17 06:36 Morphine Sulfate (Morphine Sulfate) 4 mg Q4H PRN IVP Severe Pain (Pain Scale 7-10) 10/04/17 22:30 10/11/17 22:29 10/05/17 01:19 Ondansetron HCl (Zofran) 4 mg Q6H PRN IVP Nausea & Vomiting 10/04/17 14:30 11/03/17 14:29 10/05/17 04:14 Polyethylene Glycol (Miralax) 17 gm HSPRN PRN ORAL Constipation 10/04/17 14:30 11/03/17 14:29 Zolpidem Tartrate (Ambien) 5 mg HSPRN PRN ORAL Insomnia 10/04/17 14:30 10/11/17 14:29 GI: Plan Problems: (1) ESRD (end stage renal disease) on dialysis (2) Intractable abdominal pain (3) Anemia (4) Bradycardia (5) Anemia (6) Uncontrolled diabetes mellitus Plan anemia 2/2 renal disease symptomatic treatment zofran prn DM mgmt bowel regime >> colace + miralax H2B prophylaxis fu labs s/p colonoscopy 2011 with polypectomy, needs outpatient GI procedures Discussed with Dr. Garcia. Thank you for this patient referral, we will follow. Gale Martin N.P. Oct 05, 2017 11:31
--- NOTE | 2017-10-05 12:38 | Pulmonology Progress Note ---
Assessment/Plan Problems: (1) Intractable abdominal pain (2) CHF (congestive heart failure) (3) ESRD (end stage renal disease) on dialysis (4) Hydronephrosis (5) Obesity (6) Diabetes Assessment/Plan consult requested symptomatic treatment sliding scale HD by nephrology check electrolytes Subjective ROS Limited/Unobtainable: No Constitutional: Reports: no symptoms HEENT: Repors: no symptoms Respiratory: Reports: no symptoms Allergies: Coded Allergies: NO KNOWN ALLERGIES (Unverified Allergy, Unknown, 10/15/15) Objective Last 24 Hour Vital Signs Date Time Temp Pulse Resp B/P (MAP) Pulse Ox O2 Delivery O2 Flow Rate FiO2 10/05/17 11:58 78 20 Room Air 21 10/05/17 08:00 97.8 73 20 130/75 96 Room Air 10/05/17 06:00 165/84 10/05/17 05:00 176/82 10/05/17 04:14 195/101 10/05/17 04:02 96.8 84 18 195/101 96 Room Air 10/05/17 04:00 82 10/05/17 00:00 78 10/05/17 00:00 97.2 71 20 166/90 98 Room Air 10/04/17 23:15 78 168/85 10/04/17 22:35 183/87 10/04/17 22:05 96.4 77 20 183/87 98 Room Air 10/04/17 21:31 97.0 79 16 161/92 99 Room Air 10/04/17 21:19 97.0 79 16 161/92 99 Room Air 10/04/17 20:49 97.0 76 15 184/76 99 Room Air 10/04/17 20:49 184/76 10/04/17 18:08 184/115 10/04/17 17:47 72 18 184/115 100 Room Air 10/04/17 17:30 97.0 10/04/17 15:18 97.0 10/04/17 14:28 97.0 73 15 157/69 99 Room Air 10/04/17 13:24 98.2 74 20 147/102 99 Room Air General Appearance: WD/WN HEENT: normocephalic, atraumatic Respiratory/Chest: chest wall non-tender, lungs clear Cardiovascular: normal peripheral pulses, normal rate Abdomen: normal bowel sounds, soft, non tender Genitourinary: normal external genitalia Extremities: no cyanosis Neurologic/Psychiatric: environmental planning engineer II-XII grossly normal Lymphatic: no neck adenopathy Microbiology Date/Time Source Procedure Growth Status 10/04/17 16:05 Urine,Clean Catch Urine Culture - Preliminary NO GROWTH Resulted Laboratory Tests 10/04/17 14:07: Sodium Level 135L, Potassium Level 4.6, Chloride Level 99, Carbon Dioxide Level 23, Anion Gap 13, Blood Urea Nitrogen 29H, Creatinine 7.2H, Estimat Glomerular Filtration Rate 7.0, Glucose Level 198H, Calcium Level 8.9, Total Bilirubin 0.5 , Aspartate Amino Transf (AST/SGOT) 19, Alanine Aminotransferase (ALT/SGPT) 17, Alkaline Phosphatase 54, Troponin I 0.042, Total Protein 7.4, Albumin 4.3, Globulin 3.1, Albumin/Globulin Ratio 1.4, Lipase 78 10/04/17 14:30: White Blood Count 9.2, Red Blood Count 4.41, Hemoglobin 10.3L, Hematocrit 36.5L , Mean Corpuscular Volume 83, Mean Corpuscular Hemoglobin 23.2L, Mean Corpuscular Hemoglobin Concent 28.1L, Red Cell Distribution Width 15.6H, Platelet Count 225, Mean Platelet Volume 6.9, Neutrophils (%) (Auto) 72.7, Lymphocytes (%) (Auto) 14.3L, Monocytes (%) (Auto) 9.6, Eosinophils (%) (Auto) 2.0, Basophils (%) (Auto) 1.3 10/04/17 16:05: Urine Color Pale yellow, Urine Appearance Cloudy, Urine pH 5, Urine Specific [place] 1.010, Urine Protein 4+H, Urine Glucose (UA) 1+H, Urine Ketones Negative , Urine Occult Blood 1+H, Urine Nitrite Negative, Urine Bilirubin Negative, Urine Urobilinogen Normal, Urine Leukocyte Esterase 1+H, Urine RBC 0-2, Urine WBC 0-2, Urine Squamous Epithelial Cells Few, Urine Amorphous Sediment ManyH, Urine Bacteria ModerateH 10/05/17 07:10: Sodium Level 135L, Potassium Level 4.8, Chloride Level 100, Carbon Dioxide Level 23, Anion Gap 12, Blood Urea Nitrogen 34H, Creatinine 7.9H, Estimat Glomerular Filtration Rate 6.3, Glucose Level 133H, Calcium Level 8.7, Total Bilirubin 0.5, Aspartate Amino Transf (AST/SGOT) 11L, Alanine Aminotransferase ( ALT/SGPT) 16, Alkaline Phosphatase 52, Total Protein 7.3, Albumin 4.0, Globulin 3.3, Albumin/Globulin Ratio 1.2, White Blood Count 8.4, Red Blood Count 4.38, Hemoglobin 10.4L, Hematocrit 36.6L, Mean Corpuscular Volume 84, Mean Corpuscular Hemoglobin 23.7L, Mean Corpuscular Hemoglobin Concent 28.4L, Red Cell Distribution Width 15.9H, Platelet Count 234, Mean Platelet Volume 7.5, Neutrophils (%) (Auto) 78.0H, Lymphocytes (%) (Auto) 12.7L, Monocytes (%) (Auto ) 7.7, Eosinophils (%) (Auto) 0.6, Basophils (%) (Auto) 1.0, Hemoglobin A1c 8.1H , Triglycerides Level 83, Cholesterol Level 134, LDL Cholesterol 65, HDL Cholesterol 55, Cholesterol/HDL Ratio 2.4L, Thyroid Stimulating Hormone (TSH) 0.460 Current Medications Medications (Trade) Dose Ordered Sig/Josi Route PRN Reason Start Time Stop Time Status Last Admin Dose Admin Acetaminophen (Tylenol) 650 mg Q4H PRN ORAL fever 10/04/17 14:30 11/03/17 14:29 Al Hydroxide/Mg Hydroxide (Mylanta II) 30 ml Q6H PRN ORAL dyspepsia 10/04/17 14:30 11/03/17 14:29 Albuterol/ Ipratropium (Albuterol/ Ipratropium) 3 ml Q6HRT PRN HHN dyspnea 10/04/17 14:30 10/09/17 14:29 Clonidine HCl (Catapres) 0.1 mg Q4H PRN ORAL For High Blood Pressure 10/04/17 14:30 11/03/17 14:29 10/05/17 04:14 Dextrose (Dextrose 50%) STAT PRN IV Hypoglycemia 10/04/17 14:30 11/03/17 14:29 Dextrose (Dextrose 50%) STAT PRN IV Hypoglycemia 10/04/17 14:30 11/03/17 14:29 Docusate Sodium (Colace) 100 mg THREE TIMES A DAY ORAL 10/05/17 13:00 11/04/17 12:59 Furosemide (Lasix) 100 mg EVERY 8 HOURS PRN IV dyspnea 10/04/17 22:00 11/03/17 21:59 Heparin Sodium (Porcine) (Heparin 5000 units/ml) 5,000 units EVERY 12 HOURS SUBQ 10/04/17 21:00 11/03/17 20:59 10/05/17 09:00 Insulin Aspart (NovoLOG) BEFORE MEALS AND HS SUBQ 10/04/17 16:30 11/03/17 16:29 10/05/17 06:36 Morphine Sulfate (Morphine Sulfate) 4 mg Q4H PRN IVP Severe Pain (Pain Scale 7-10) 10/04/17 22:30 10/11/17 22:29 10/05/17 01:19 Ondansetron HCl (Zofran) 4 mg Q6H PRN IVP Nausea & Vomiting 10/04/17 14:30 11/03/17 14:29 10/05/17 04:14 Polyethylene Glycol (Miralax) 17 gm BEDTIME ORAL 10/05/17 21:00 11/04/17 20:59 Polyethylene Glycol (Miralax) 17 gm HSPRN PRN ORAL Constipation 10/04/17 14:30 11/03/17 14:29 Zolpidem Tartrate (Ambien) 5 mg HSPRN PRN ORAL Insomnia 10/04/17 14:30 10/11/17 14:29 JONES BARAKAT Oct 05, 2017 12:38
--- NOTE | 2017-10-05 12:41 | General Progress Note ---
Progress Note Progress Note [id number] full note dictated ROMY SANCHEZ Oct 05, 2017 12:41
[2017-10-05] MEDS: Docusate 100mg cap ORAL SCH ×2 (13:00→17:33)
--- NOTE | 2017-10-05 13:52 | General Progress Note ---
Assessment/Plan Problem List: (1) CHF (congestive heart failure) ICD Codes: I50.9 - Congestive heart failure SNOMED: 94855549 (2) Hypertension ICD Codes: I10 - Hypertension SNOMED: 80975714 (3) Morbid obesity ICD Codes: E66.01 - Morbid obesity SNOMED: 351738107 (4) Sepsis ICD Codes: A41.9 - Sepsis, unspecified organism SNOMED: 37504512 (5) CKD (chronic kidney disease) ICD Codes: N18.9 - CKD (chronic kidney disease) SNOMED: 207430257 (6) Anemia, chronic disease ICD Codes: D63.8 - Anemia in other chronic diseases classified elsewhere SNOMED: 681382613 (7) Blindness ICD Codes: H54.0 - Blindness, both eyes SNOMED: 421562574 (8) End stage renal disease on dialysis ICD Codes: N18.6 - End stage renal failure on dialysis; Z99.2 - Dependence on renal dialysis SNOMED: 500014829 Status: stable, progressing, tolerating diet Assessment/Plan ot pt diet abx dialysis uro endo eval cbc bmp am Subjective Constitutional: Reports: weakness Allergies: Coded Allergies: NO KNOWN ALLERGIES (Unverified Allergy, Unknown, 10/15/15) All Systems: reviewed and negative except above Subjective sleepy calm in bed Objective Last 24 Hour Vital Signs Date Time Temp Pulse Resp B/P (MAP) Pulse Ox O2 Delivery O2 Flow Rate FiO2 10/05/17 11:58 78 20 Room Air 21 10/05/17 08:00 97.8 73 20 130/75 96 Room Air 10/05/17 06:00 165/84 10/05/17 05:00 176/82 10/05/17 04:14 195/101 10/05/17 04:02 96.8 84 18 195/101 96 Room Air 10/05/17 04:00 82 10/05/17 00:00 78 10/05/17 00:00 97.2 71 20 166/90 98 Room Air 10/04/17 23:15 78 168/85 10/04/17 22:35 183/87 10/04/17 22:05 96.4 77 20 183/87 98 Room Air 10/04/17 21:31 97.0 79 16 161/92 99 Room Air 10/04/17 21:19 97.0 79 16 161/92 99 Room Air 10/04/17 20:49 97.0 76 15 184/76 99 Room Air 10/04/17 20:49 184/76 10/04/17 18:08 184/115 10/04/17 17:47 72 18 184/115 100 Room Air 10/04/17 17:30 97.0 10/04/17 15:18 97.0 10/04/17 14:28 97.0 73 15 157/69 99 Room Air Laboratory Tests 10/04/17 14:07: Sodium Level 135L, Potassium Level 4.6, Chloride Level 99, Carbon Dioxide Level 23, Anion Gap 13, Blood Urea Nitrogen 29H, Creatinine 7.2H, Estimat Glomerular Filtration Rate 7.0, Glucose Level 198H, Calcium Level 8.9, Total Bilirubin 0.5 , Aspartate Amino Transf (AST/SGOT) 19, Alanine Aminotransferase (ALT/SGPT) 17, Alkaline Phosphatase 54, Troponin I 0.042, Total Protein 7.4, Albumin 4.3, Globulin 3.1, Albumin/Globulin Ratio 1.4, Lipase 78 10/04/17 14:30: White Blood Count 9.2, Red Blood Count 4.41, Hemoglobin 10.3L, Hematocrit 36.5L , Mean Corpuscular Volume 83, Mean Corpuscular Hemoglobin 23.2L, Mean Corpuscular Hemoglobin Concent 28.1L, Red Cell Distribution Width 15.6H, Platelet Count 225, Mean Platelet Volume 6.9, Neutrophils (%) (Auto) 72.7, Lymphocytes (%) (Auto) 14.3L, Monocytes (%) (Auto) 9.6, Eosinophils (%) (Auto) 2.0, Basophils (%) (Auto) 1.3 10/04/17 16:05: Urine Color Pale yellow, Urine Appearance Cloudy, Urine pH 5, Urine Specific [place] 1.010, Urine Protein 4+H, Urine Glucose (UA) 1+H, Urine Ketones Negative , Urine Occult Blood 1+H, Urine Nitrite Negative, Urine Bilirubin Negative, Urine Urobilinogen Normal, Urine Leukocyte Esterase 1+H, Urine RBC 0-2, Urine WBC 0-2, Urine Squamous Epithelial Cells Few, Urine Amorphous Sediment ManyH, Urine Bacteria ModerateH 10/05/17 07:10: Sodium Level 135L, Potassium Level 4.8, Chloride Level 100, Carbon Dioxide Level 23, Anion Gap 12, Blood Urea Nitrogen 34H, Creatinine 7.9H, Estimat Glomerular Filtration Rate 6.3, Glucose Level 133H, Calcium Level 8.7, Total Bilirubin 0.5, Aspartate Amino Transf (AST/SGOT) 11L, Alanine Aminotransferase ( ALT/SGPT) 16, Alkaline Phosphatase 52, Total Protein 7.3, Albumin 4.0, Globulin 3.3, Albumin/Globulin Ratio 1.2, White Blood Count 8.4, Red Blood Count 4.38, Hemoglobin 10.4L, Hematocrit 36.6L, Mean Corpuscular Volume 84, Mean Corpuscular Hemoglobin 23.7L, Mean Corpuscular Hemoglobin Concent 28.4L, Red Cell Distribution Width 15.9H, Platelet Count 234, Mean Platelet Volume 7.5, Neutrophils (%) (Auto) 78.0H, Lymphocytes (%) (Auto) 12.7L, Monocytes (%) (Auto ) 7.7, Eosinophils (%) (Auto) 0.6, Basophils (%) (Auto) 1.0, Hemoglobin A1c 8.1H , Triglycerides Level 83, Cholesterol Level 134, LDL Cholesterol 65, HDL Cholesterol 55, Cholesterol/HDL Ratio 2.4L, Thyroid Stimulating Hormone (TSH) 0.460 Height (Feet): 5 Height (Inches): 9.00 Weight (Pounds): 315 General Appearance: lethargic EENT: normal ENT inspection Neck: normal alignment Cardiovascular: normal peripheral pulses, normal rate, regular rhythm Respiratory/Chest: chest wall non-tender, lungs clear, normal breath sounds Abdomen: normal bowel sounds, non tender, soft Extremities: normal inspection Edema: 1+ Arm (L), 1+ Arm (R), 1+ Leg (L), 1+ Leg (R), 1+ Pedal (L), 1+ Pedal ( R), 1+ Generalized Edema: trace edema Neurologic: responsive, motor weakness Skin: normal pigmentation, warm/dry BRIE LAN Oct 05, 2017 13:52
--- NOTE | 2017-10-05 16:52 | Cardiology Progress Note ---
Assessment/Plan Assessment/Plan The patient is seen and examined, full consult note will be dictated. Objective Last 24 Hour Vital Signs Date Time Temp Pulse Resp B/P (MAP) Pulse Ox O2 Delivery O2 Flow Rate FiO2 10/05/17 16:14 76 10/05/17 12:00 74 10/05/17 12:00 99.0 22 136/74 Room Air 10/05/17 11:58 78 20 Room Air 21 10/05/17 09:00 99.0 76 22 136/74 Room Air 10/05/17 08:00 97.8 73 20 130/75 96 Room Air 10/05/17 08:00 74 10/05/17 06:00 165/84 10/05/17 05:00 176/82 10/05/17 04:14 195/101 10/05/17 04:02 96.8 84 18 195/101 96 Room Air 10/05/17 04:00 82 10/05/17 00:00 78 10/05/17 00:00 97.2 71 20 166/90 98 Room Air 10/04/17 23:15 78 168/85 10/04/17 22:35 183/87 10/04/17 22:05 96.4 77 20 183/87 98 Room Air 10/04/17 21:31 97.0 79 16 161/92 99 Room Air 10/04/17 21:19 97.0 79 16 161/92 99 Room Air 10/04/17 20:49 97.0 76 15 184/76 99 Room Air 10/04/17 20:49 184/76 10/04/17 18:08 184/115 10/04/17 17:47 72 18 184/115 100 Room Air 10/04/17 17:30 97.0 Laboratory Tests Test 10/05/17 07:10 White Blood Count 8.4 K/UL (4.8-10.8) Red Blood Count 4.38 M/UL (4.20-5.40) Hemoglobin 10.4 G/DL (12.0-16.0) L Hematocrit 36.6 % (37.0-47.0) L Mean Corpuscular Volume 84 FL (80-99) Mean Corpuscular Hemoglobin 23.7 PG (27.0-31.0) L Mean Corpuscular Hemoglobin Concent 28.4 G/DL (32.0-36.0) L Red Cell Distribution Width 15.9 % (11.6-14.8) H Platelet Count 234 K/UL (150-450) Mean Platelet Volume 7.5 FL (6.5-10.1) Neutrophils (%) (Auto) 78.0 % (45.0-75.0) H Lymphocytes (%) (Auto) 12.7 % (20.0-45.0) L Monocytes (%) (Auto) 7.7 % (1.0-10.0) Eosinophils (%) (Auto) 0.6 % (0.0-3.0) Basophils (%) (Auto) 1.0 % (0.0-2.0) Sodium Level 135 MMOL/L (136-145) L Potassium Level 4.8 MMOL/L (3.5-5.1) Chloride Level 100 MMOL/L (98-107) Carbon Dioxide Level 23 MMOL/L (21-32) Anion Gap 12 mmol/L (5-15) Blood Urea Nitrogen 34 mg/dL (7-18) H Creatinine 7.9 MG/DL (0.55-1.30) H Estimat Glomerular Filtration Rate 6.3 mL/min (>60) Glucose Level 133 MG/DL (74-106) H Hemoglobin A1c 8.1 % (4.3-6.0) H Calcium Level 8.7 MG/DL (8.5-10.1) Total Bilirubin 0.5 MG/DL (0.2-1.0) Aspartate Amino Transf (AST/SGOT) 11 U/L (15-37) L Alanine Aminotransferase (ALT/SGPT) 16 U/L (12-78) Alkaline Phosphatase 52 U/L (46-116) Total Protein 7.3 G/DL (6.4-8.2) Albumin 4.0 G/DL (3.4-5.0) Globulin 3.3 g/dL Albumin/Globulin Ratio 1.2 (1.0-2.7) Triglycerides Level 83 MG/DL (0-200) Cholesterol Level 134 MG/DL (< 200) LDL Cholesterol 65 mg/dL (<100) HDL Cholesterol 55 MG/DL (40-60) Cholesterol/HDL Ratio 2.4 (3.3-4.4) L Thyroid Stimulating Hormone (TSH) 0.460 uiU/mL (0.360-3.740) Microbiology Date/Time Source Procedure Growth Status 10/04/17 16:05 Urine,Clean Catch Urine Culture - Preliminary NO GROWTH Resulted ARNIE BARBER Oct 05, 2017 16:52
[2017-10-05] MEDS: DiphenhydrAMINE 50mg/ml Inj IVP PRN ×2 (17:32→23:34)
[2017-10-05 20:39] LABS: MAGNESIUM 2.3 MG/DL (1.8-2.4)
[2017-10-05] MEDS: Miralax 17gm pkt ORAL SCH (21:00)
--- NOTE | 2017-10-05 23:15 | Consultation ---
DATE OF CONSULTATION: 10/05/2017 NEPHROLOGY CONSULTATION CONSULTING PHYSICIAN: Mireille Quinones M.D. REFERRING PHYSICIAN: Roderick Henning D.O. REASON FOR CONSULTATION: End-stage renal disease, need for dialysis. HISTORY OF PRESENT ILLNESS: The patient is an unfortunate 62-year-old female with past medical history significant for history of end-stage renal disease, anemia of chronic kidney disease, renal osteodystrophy, hypertension, history of diabetes, and legally blind, who presented to the emergency room at [facility] complaining of increasing shortness of breath, having nausea and vomiting, epigastric pain, and also some suprapubic pain. The patient was admitted. On evaluation in the ER, was found to have blood pressure of 147/102, the pulse was okay. The patient was admitted with possible urinary tract infection. She had a CT scan of the abdomen and pelvis, which showed hiatal hernia. The patient was admitted to the hospital. I was called for management of renal disease and electrolyte imbalance. PAST MEDICAL HISTORY: 1. History of end-stage renal disease. 2. Anemia of chronic kidney disease. 3. Renal osteodystrophy. 4. Hypertension. 5. Morbidly obese. 6. Diabetes. 7. Legally blind. 8. History of COPD. 9. History of peripheral vascular disease. 10. History of diabetic neuropathy. 11. History of tremor. PAST SURGICAL HISTORY: 1. History of AV fistula placement on her right upper extremity. 2. History of PermCath placement. MEDICATIONS: 1. MiraLAX 17 g p.o. daily. 2. Colace 100 mg daily. 3. Morphine sulfate 4 mg p.o. daily. 4. Lasix 100 mg daily. 5. Insulin sliding scale. 6. Tylenol 650 mg q.6 h. p.r.n. pain. 7. Zofran 4 mg IV p.r.n. nausea and vomiting. 8. Mylanta p.r.n. 9. Clonidine 0.1 mg for blood pressure more than 160. 10. Albuterol and Atrovent. FAMILY HISTORY: Noncontributory. REVIEW OF SYSTEMS: GENERAL: She complained of generalized weakness. Denied any fever, chills, or night sweats. HEAD AND NECK: Denies any dysphagia, odynophagia, blurry vision, headache, or neck stiffness. PULMONARY: Mild shortness of breath. No cough. No sputum. CARDIOVASCULAR: Denies any chest pain or palpitation. GASTROINTESTINAL: Complained of nausea and vomiting. No diarrhea. No hematemesis. No hematochezia. GENITOURINARY: Complained of suprapubic pain, dysuria, and frequency. PHYSICAL EXAMINATION: VITAL SIGNS: The patient had temperature of 98, blood pressure 195/101, pulse rate of 84, and respiratory rate of 18. HEAD AND NECK: No JVP. No LAD. No thyromegaly. Extraocular movements intact. Pupils are reactive to light and accommodation. LUNGS: Clear to auscultation. CARDIAC: Regular rate and rhythm. S1 and S2. No murmur. No rub. ABDOMEN: Obese, nontender, and nondistended. EXTREMITIES: A 1 to 2+ edema. No clubbing. No cyanosis. LABORATORY AND DIAGNOSTIC DATA: Lab values revealed sodium 135, potassium 4.8, bicarbonate 34, BUN 34, creatinine of 7.9, glucose of 133, and calcium of 8.1. AST of 11, ALT of 16, and alkaline phosphatase of 52. Total protein of 7.3. CBC revealed a WBC count of 8.4, hemoglobin of 10.4, hematocrit of 36, and platelet count of 234. UA revealed specific gravity of 1.010, protein 4+, glucose 1+, blood 1+, and bacteria many. ASSESSMENT: 1. End-stage renal disease. 2. Anemia of chronic kidney disease. 3. Hypertension urgency. 4. Urinary tract infection. 5. History of diabetes. PLAN: We will start the patient on IV antibiotics. Plan for patient to receive dialysis. We will start the patient on amlodipine 10 mg daily for better blood pressure control. I will schedule for the patient to receive dialysis today and possibly tomorrow. Again, I would like to thank, Dr. Roderick Henning for allowing me to participate in the care of this patient. Mireille Quinones M.D. DR: FRANCO JOB#: [id number] CC:
[2017-10-06] VITALS (8 sets, daily range): BP systolic 136–184; BP diastolic 56–108
--- NOTE | 2017-10-06 00:30 | Consultation ---
DATE OF CONSULTATION: 10/05/2017 CARDIOLOGY CONSULTATION CONSULTING PHYSICIAN: Shalom Costa M.D. ATTENDING PHYSICIAN: Roderick Henning D.O. REFERRING PHYSICIAN: Roderick Henning D.O. REASON FOR CONSULTATION: Management of coronary artery disease in a patient with prior history of stenting. HISTORY OF PRESENT ILLNESS: The patient is a very unfortunate 62-year-old female, who presents to the hospital with abdominal pain starting about three days ago. Pain was associated with nausea and vomiting. There were ST and T-wave deviations of the electrocardiogram associated with Q-wave in lead V3, suggestive of possible ischemia, presence of infarction in the anterior wall in the past. Q-wave was also apparent in the inferior leads suggestive of old inferior wall infarct. Due to the above history of stent placement, cardiology consultation was made at the request of Dr. Henning for evaluation and management of this condition. Initial blood pressure in the emergency department was 147/102 mmHg, heart rate of 74. The patient did not have any chest pain, shortness of breath, or palpitations. PAST MEDICAL HISTORY: Includes end-stage renal disease, on hemodialysis, coronary artery disease, status post stent placement in 2012 in [employer] [place], history of hypertension, history of asthma/COPD, history of diabetes mellitus, history of vertigo, history of tremors, history of syncope in the past, and history of headaches. PAST SURGICAL HISTORY: AV fistula placement for end-stage renal disease, history of coronary angioplasty and stent placement. ALLERGIES: No known drug allergies. SOCIAL HISTORY: Former smoker, smoked about 1-2 packs per day for about 10-15 years, has cut down a number of cigarettes. Denies any alcohol or illicit drug use. FAMILY HISTORY: No premature coronary artery disease or arrhythmogenic in The first-degree relatives. REVIEW OF SYSTEMS: HEENT: Denies any headache, diplopia, or blurred vision. CONSTITUTIONAL: Denies any fever, chills, night sweats, or weight loss. CARDIOVASCULAR: Denies any chest pain, shortness of breath, PND, orthopnea, leg swelling, syncope, or palpitation. PULMONARY: Denies any cough, hemoptysis, or wheezing. GASTROINTESTINAL: Complained of abdominal pain, nausea, and vomiting. GENITOURINARY: On hemodialysis 3 days a week. NEUROLOGIC: Denies any motor dysfunction, sensory deficit, or altered speech. MEDICATIONS: List of medications include acetaminophen 650 mg p.o. q.4 hours p.r.n. pain and temperature above 100.5 degrees Fahrenheit, Mag-Al Plus suspension 30 mL p.o. q.6 hours p.r.n. indigestion, albuterol 3 mL inhaler q.6 hours p.r.n. shortness of breath, allopurinol 100 mg p.o. daily, amlodipine 10 mg p.o. daily, ascorbic acid 500 mg p.o. daily, aspirin 81 mg p.o. daily, atorvastatin 20 mg p.o. nightly, calcium acetate 667 mg p.o. daily, clonidine 0.1 mg q.4 hours p.r.n. hypertension, Benadryl 25 mg p.o. q.6 hours p.r.n. itching, Colace 100 mg p.o. twice daily, ferrous sulfate 325 mg p.o. daily, folic acid, vitamin B complex, Dialyvite 800 mcg p.o. daily, furosemide 20 mg p.o. daily, glimepiride 4 mg before breakfast, heparin sulfate 5000 units subcutaneous q.12 hours, hydralazine 10 mg p.o. q.6 hours, hydrocodone/acetaminophen 5/325 one tablet q.8 hours p.r.n. pain, insulin aspart sliding scale, Levemir insulin 10 units subcutaneous nightly, isosorbide dinitrate 30 mg p.o. twice daily, lactulose 15 mL daily, 1 tablet twice a day, losartan 50 mg p.o. daily, Bactroban nasal 1 application nasal 3 times a day, Macrobid 100 mg q.12 hours, nitroglycerin 0.4 mg sublingual q.5 minutes x3 doses p.r.n. chest pain, Zofran 4 mg p.o. q.6 hours p.r.n. nausea or vomiting, pantoprazole 40 mg p.o. daily, MiraLAX 17 g daily p.r.n. constipation, Zantac 150 mg daily, Renvela 800 mg 3 times a day, temazepam 15 mg nightly p.r.n. insomnia, Ultram 50 mg q.6 hours p.r.n. pain, and zolpidem 5 mg p.o. nightly p.r.n. insomnia. PHYSICAL EXAMINATION: VITAL SIGNS: Blood pressure at time of arrival to the hospital was 147/102, pulse of 74, respirations 20, temperature 98.2 degrees Fahrenheit, and O2 saturation 99% on room air. GENERAL: The patient is an unfortunate, morbidly obese, legally blind 62-year-old female, in no apparent respiratory distress. HEENT: Atraumatic and normocephalic. Anicteric. Pupils are equal, round, and reactive to light and accommodation. Extraocular muscles intact. NECK: JVP cannot be assessed due to obesity. No carotid bruit. CARDIOVASCULAR SYSTEM: Normal S1, S2. Regular rate and rhythm. No murmurs, gallops, or rubs. PMI is at fourth intercostal space at the midclavicular line. LUNGS: Clear to auscultation bilaterally. ABDOMEN: Soft, nontender, and nondistended. No hepatosplenomegaly. Positive bowel sounds. EXTREMITIES: No evidence of edema, clubbing, or cyanosis. DIAGNOSTIC DATA: A 12-lead electrocardiogram shows sinus rhythm with some nonspecific ST-segment elevation, not meeting the criteria for STEMI in II, III, and aVF. Associated QT prolongation. There are Q-waves in lead III and aVF, which may suggest inferior wall infarction of age indeterminate. There is also Q-wave in lead V3, highly suggestive of anterior wall infarct. Chest x-ray is not done. CT of abdomen and pelvis had shown moderate right hydronephrosis and hydroureter, possibly stone in the distal right ureter, anterior abdominal wall hernia, and trace pericardial effusion. ASSESSMENT AND PLAN: The patient is a very unfortunate who is seen in cardiology consultation at request of Dr. Henning. 1. History of coronary artery disease, status post percutaneous coronary intervention in 2013, last 2D echocardiography has shown normal LV systolic function with left ventricular ejection fraction of approximately 65%. The patient currently does not have any cardiac symptoms. The electrocardiogram is likely suggestive of electrolyte abnormalities due to end-stage renal disease. We will obtain one troponin I level in view of the abdominal pain. 2. Hypertensive heart disease. We will adjust the blood pressure to keep it lower than 130/85 mmHg. 3. History of diabetes mellitus. The patient will benefit from combination of aspirin and statin. I would like to thank, Dr. Henning, for allowing me to participate in the care of this patient. Shalom Costa M.D. DR: Asim JOB#: [id number] CC:
--- NOTE | 2017-10-06 05:47 | Consultation ---
DATE OF CONSULTATION: 10/05/2017 REASON FOR CONSULTATION: Abdominal pain and ureteral stone. HISTORY OF PRESENT ILLNESS: This is a 62-year-old female with morbid obesity and end-stage renal disease, on hemodialysis, presented with abdominal pain three days ago. The pain was sharp at admission. Currently, she is asymptomatic. Denies chest pain or shortness of breath. No known allergies. Medical history is significant for end-stage renal disease. She is on acetaminophen, allopurinol, amlodipine, ascorbic acid, aspirin, Atrovent, docusate sodium, and many other medications related to her primary conditions. PAST MEDICAL HISTORY: As described congestive heart failure, obesity, and diabetes. REVIEW OF SYMPTOMS: All system others negative except mentioned abdominal pain. PHYSICAL EXAMINATION: GENERAL: She is afebrile. VITAL SIGNS: Stable. HEENT: Normocephalic and atraumatic. NECK: Nontender. RESPIRATORY: Chest clear to auscultation. ABDOMEN: Soft and nontender. No CVA tenderness. RECTAL: Normal. VAGINAL: Normal. EXTREMITIES: Normal range of motion. NEUROLOGICAL: Intact. LABORATORY AND DIAGNOSTIC DATA: Creatinine is 7.2. Calcium level is 8.9. White blood cell count is 9.2, hematocrit is 36.5. Abdominal CT was done showing moderate right hydronephrosis and hydroureter. Small tiny stones in the distal right ureter. ASSESSMENT AND PLAN: The patient has end-stage renal disease, possible small ureterovesical junction stones on the right, approximately 2 mm. I discussed in great length with the patient the possible treatment strategies and we agreed doing conservative management. She will continue fluid intake, hemodialysis on observation, and hopefully will pass this 2 mm stone. Considering the state of her condition of the kidneys, I decided that further intervention is not going to be appropriate at this time. We will follow this patient with you. Jordan Neely M.D. DR: Saurabh JOB#: [id number] CC:
[2017-10-06] MEDS: NovoLOG Insulin Flexpen SUBQ SCH ×3 (06:27→16:30)
[2017-10-06] MEDS: DiphenhydrAMINE 50mg/ml Inj IVP PRN ×3 (06:52→19:59)
--- NOTE | 2017-10-06 07:52 | Pulmonology Progress Note ---
Assessment/Plan Problems: (1) Intractable abdominal pain (2) CHF (congestive heart failure) (3) ESRD (end stage renal disease) on dialysis (4) Hydronephrosis (5) Obesity (6) Diabetes Assessment/Plan lots of PVC's on monitor consult appreciated symptomatic treatment sliding scale HD by nephrology check electrolytes Keep in teli Subjective ROS Limited/Unobtainable: No Interval Events: urology note reviewed Allergies: Coded Allergies: NO KNOWN ALLERGIES (Unverified Allergy, Unknown, 10/15/15) Objective Last 24 Hour Vital Signs Date Time Temp Pulse Resp B/P (MAP) Pulse Ox O2 Delivery O2 Flow Rate FiO2 10/06/17 05:03 78 10/06/17 04:00 97.7 77 20 154/88 95 Room Air 21 10/06/17 00:51 97.6 64 20 136/58 Room Air 10/06/17 00:49 Room Air 10/06/17 00:00 78 10/06/17 00:00 96.6 76 18 184/107 95 Room Air 21 10/05/17 20:27 54 18 Room Air 21 10/05/17 20:00 96.6 51 20 167/78 95 Room Air 21 10/05/17 20:00 75 10/05/17 16:14 76 10/05/17 16:00 96.6 76 22 156/74 Room Air 10/05/17 12:00 74 10/05/17 12:00 99.0 22 136/74 Room Air 10/05/17 11:58 78 20 Room Air 21 10/05/17 09:00 99.0 76 22 136/74 Room Air 10/05/17 08:00 97.8 73 20 130/75 96 Room Air 10/05/17 08:00 74 General Appearance: WD/WN HEENT: normocephalic, atraumatic Respiratory/Chest: chest wall non-tender, lungs clear Breasts: no masses Cardiovascular: normal rate, regular rhythm, regularly irregular Abdomen: normal bowel sounds, soft, non tender Genitourinary: normal external genitalia Extremities: no clubbing Skin: no rash Microbiology Date/Time Source Procedure Growth Status 10/04/17 16:05 Urine,Clean Catch Urine Culture - Preliminary NO GROWTH Resulted Laboratory Tests 10/05/17 19:25: Magnesium Level 2.3, Troponin I 0.038, Pro-B-Type Natriuretic Peptide 89115Y Current Medications Medications (Trade) Dose Ordered Sig/Josi Route PRN Reason Start Time Stop Time Status Last Admin Dose Admin Acetaminophen (Tylenol) 650 mg Q4H PRN ORAL fever 10/04/17 14:30 11/03/17 14:29 Al Hydroxide/Mg Hydroxide (Mylanta II) 30 ml Q6H PRN ORAL dyspepsia 10/04/17 14:30 11/03/17 14:29 Albuterol/ Ipratropium (Albuterol/ Ipratropium) 3 ml Q6HRT PRN HHN dyspnea 10/04/17 14:30 10/09/17 14:29 Amlodipine Besylate (Norvasc) 2.5 mg DAILY ORAL 10/05/17 18:00 11/04/17 17:59 Clonidine HCl (Catapres) 0.1 mg Q4H PRN ORAL For High Blood Pressure 10/04/17 14:30 11/03/17 14:29 10/05/17 04:14 Dextrose (Dextrose 50%) STAT PRN IV Hypoglycemia 10/04/17 14:30 11/03/17 14:29 Diphenhydramine HCl (Benadryl) 25 mg Q6H PRN IVP Itching 10/05/17 17:15 11/04/17 17:14 10/06/17 06:52 Docusate Sodium (Colace) 100 mg THREE TIMES A DAY ORAL 10/05/17 13:00 11/04/17 12:59 10/05/17 17:33 Furosemide (Lasix) 100 mg EVERY 8 HOURS PRN IV dyspnea 10/04/17 22:00 11/03/17 21:59 Heparin Sodium (Porcine) (Heparin 5000 units/ml) 5,000 units EVERY 12 HOURS SUBQ 10/04/17 21:00 11/03/17 20:59 10/05/17 21:00 Insulin Aspart (NovoLOG) BEFORE MEALS AND HS SUBQ 10/04/17 16:30 11/03/17 16:29 10/06/17 06:27 Morphine Sulfate (Morphine Sulfate) 4 mg Q4H PRN IVP Severe Pain (Pain Scale 7-10) 10/04/17 22:30 10/11/17 22:29 10/05/17 01:19 Ondansetron HCl (Zofran) 4 mg Q6H PRN IVP Nausea & Vomiting 10/04/17 14:30 11/03/17 14:29 10/05/17 04:14 Polyethylene Glycol (Miralax) 17 gm BEDTIME ORAL 10/05/17 21:00 11/04/17 20:59 10/05/17 21:00 Polyethylene Glycol (Miralax) 17 gm HSPRN PRN ORAL Constipation 10/04/17 14:30 11/03/17 14:29 Zolpidem Tartrate (Ambien) 5 mg HSPRN PRN ORAL Insomnia 10/04/17 14:30 10/11/17 14:29 JONES BARAKAT Oct 06, 2017 07:52
--- NOTE | 2017-10-06 08:36 | General Progress Note ---
Assessment/Plan Problem List: (1) CHF (congestive heart failure) ICD Codes: I50.9 - Congestive heart failure SNOMED: 07042155 (2) Hypertension ICD Codes: I10 - Hypertension SNOMED: 65402911 (3) Morbid obesity ICD Codes: E66.01 - Morbid obesity SNOMED: 170800243 (4) Sepsis ICD Codes: A41.9 - Sepsis, unspecified organism SNOMED: 47954692 (5) CKD (chronic kidney disease) ICD Codes: N18.9 - CKD (chronic kidney disease) SNOMED: 477260884 (6) Anemia, chronic disease ICD Codes: D63.8 - Anemia in other chronic diseases classified elsewhere SNOMED: 813622809 (7) Blindness ICD Codes: H54.0 - Blindness, both eyes SNOMED: 689745137 (8) End stage renal disease on dialysis ICD Codes: N18.6 - End stage renal failure on dialysis; Z99.2 - Dependence on renal dialysis SNOMED: 282160733 Status: stable, progressing, tolerating diet Assessment/Plan ot pt diet abx dialysis uro endo eval cbc bmp am Subjective Constitutional: Reports: weakness Allergies: Coded Allergies: NO KNOWN ALLERGIES (Unverified Allergy, Unknown, 10/15/15) All Systems: reviewed and negative except above Subjective sleepy calm in bed Objective Last 24 Hour Vital Signs Date Time Temp Pulse Resp B/P (MAP) Pulse Ox O2 Delivery O2 Flow Rate FiO2 10/06/17 05:03 78 10/06/17 04:00 97.7 77 20 154/88 95 Room Air 10/06/17 00:51 97.6 64 20 136/58 Room Air 10/06/17 00:49 Room Air 10/06/17 00:00 78 10/06/17 00:00 96.6 76 18 184/107 95 Room Air 21 10/05/17 20:27 54 18 Room Air 21 10/05/17 20:00 96.6 51 20 167/78 95 Room Air 10/05/17 20:00 75 10/05/17 16:14 76 10/05/17 16:00 96.6 76 22 156/74 Room Air 10/05/17 12:00 74 10/05/17 12:00 99.0 22 136/74 Room Air 10/05/17 11:58 78 20 Room Air 21 10/05/17 09:00 99.0 76 22 136/74 Room Air Laboratory Tests 10/05/17 19:25: Magnesium Level 2.3, Troponin I 0.038, Pro-B-Type Natriuretic Peptide 85953M Height (Feet): 5 Height (Inches): 9.00 Weight (Pounds): 315 General Appearance: lethargic EENT: normal ENT inspection Neck: normal alignment Cardiovascular: normal peripheral pulses, normal rate, regular rhythm Respiratory/Chest: chest wall non-tender, lungs clear, normal breath sounds Abdomen: normal bowel sounds, non tender, soft Extremities: normal inspection Edema: 1+ Arm (L), 1+ Arm (R), 1+ Leg (L), 1+ Leg (R), 1+ Pedal (L), 1+ Pedal ( R), 1+ Generalized Neurologic: responsive, motor weakness Skin: normal pigmentation, warm/dry BRIE LAN Oct 06, 2017 08:36
[2017-10-06] MEDS: Heparin 5000 units/ml inj SUBQ SCH (08:40)
[2017-10-06] MEDS: Docusate 100mg cap ORAL SCH ×3 (08:41→17:16)
[2017-10-06] MEDS: Morphine Sulfate 4mg/ml Inj IVP PRN ×2 (08:51→17:30)
[2017-10-06 09:27] LABS: BASOPHILS % (AUTO) 0.6 % (0.0-2.0); EOSINOPHILS % (AUTO) 2.3 % (0.0-3.0); LYMPHOCYTES % (AUTO) 16.8 % (20.0-45.0); MEAN CORPUSCULAR HEMOGLOBIN 23.8 PG (27.0-31.0); MEAN CORPUSCULAR HGB CONC 29.2 G/DL (32.0-36.0); MEAN CORPUSCULAR VOLUME 82 FL (80-99); MEAN PLATELET VOLUME 6.5 FL (6.5-10.1); MONOCYTES % (AUTO) 11.1 % (1.0-10.0); NEUTROPHILS % (AUTO) 69.3 % (45.0-75.0); PLATELET COUNT 243 K/UL (150-450); RED BLOOD COUNT 4.51 M/UL (4.20-5.40); RED CELL DISTRIBUTION WIDTH 15.9 % (11.6-14.8); WHITE BLOOD COUNT 7.7 K/UL (4.8-10.8)
[2017-10-06 09:40] LABS: ALANINE AMINOTRANSFERASE 16 U/L (12-78); ANION GAP 9 mmol/L (5-15); ASPARTATE AMINO TRANSFERASE 12 U/L (15-37); CALCIUM 8.6 MG/DL (8.5-10.1); CARBON DIOXIDE 25 MMOL/L (21-32); CHLORIDE 103 MMOL/L (98-107); CREATININE 7.4 MG/DL (0.55-1.30); GLOMERULAR FILTRATION RATE 6.8 mL/min (>60); POTASSIUM 4.4 MMOL/L (3.5-5.1); SODIUM 137 MMOL/L (136-145); TOTAL PROTEIN 7.3 G/DL (6.4-8.2)
--- NOTE | 2017-10-06 11:00 | General Progress Note ---
Assessment/Plan Problem List: (1) Anemia, chronic disease ICD Codes: D63.8 - Anemia in other chronic diseases classified elsewhere SNOMED: 275221223 (2) End stage renal disease on dialysis ICD Codes: N18.6 - End stage renal failure on dialysis; Z99.2 - Dependence on renal dialysis SNOMED: 240611070 (3) Hypertension ICD Codes: I10 - Hypertension SNOMED: 85691957 (4) CHF (congestive heart failure) ICD Codes: I50.9 - Congestive heart failure SNOMED: 82681498 (5) Morbid obesity ICD Codes: E66.01 - Morbid obesity SNOMED: 868979214 (6) Diabetes ICD Codes: E11.9 - Diabetes SNOMED: 44465168 (7) Intractable abdominal pain ICD Codes: R10.9 - Unspecified abdominal pain SNOMED: 35093884, 834499367 Assessment/Plan ct reviewed no acute finding fu labs HD Subjective ROS Limited/Unobtainable: Yes Allergies: Coded Allergies: NO KNOWN ALLERGIES (Unverified Allergy, Unknown, 10/15/15) Subjective c/o abd pain Objective Last 24 Hour Vital Signs Date Time Temp Pulse Resp B/P (MAP) Pulse Ox O2 Delivery O2 Flow Rate FiO2 10/06/17 08:05 86 10/06/17 08:00 97.5 78 18 166/56 95 Room Air 10/06/17 07:00 76 18 Room Air 21 10/06/17 05:03 78 10/06/17 04:00 97.7 77 20 154/88 95 Room Air 21 10/06/17 00:51 97.6 64 20 136/58 Room Air 10/06/17 00:49 Room Air 10/06/17 00:00 78 10/06/17 00:00 96.6 76 18 184/107 95 Room Air 21 10/05/17 20:27 54 18 Room Air 21 10/05/17 20:00 96.6 51 20 167/78 95 Room Air 21 10/05/17 20:00 75 10/05/17 16:14 76 10/05/17 16:00 96.6 76 22 156/74 Room Air 10/05/17 12:00 74 10/05/17 12:00 99.0 22 136/74 Room Air 10/05/17 11:58 78 20 Room Air 21 Intake and Output 10/06/17 10/07/17 19:00 07:00 Output Total 200 ml Balance -200 ml Output Urine Total 200 ml Laboratory Tests 10/05/17 19:25: Magnesium Level 2.3, Troponin I 0.038, Pro-B-Type Natriuretic Peptide 66105L 10/06/17 09:14: White Blood Count 7.7, Red Blood Count 4.51, Hemoglobin 10.7L, Hematocrit 36.8L , Mean Corpuscular Volume 82, Mean Corpuscular Hemoglobin 23.8L, Mean Corpuscular Hemoglobin Concent 29.2L, Red Cell Distribution Width 15.9H, Platelet Count 243, Mean Platelet Volume 6.5, Neutrophils (%) (Auto) 69.3, Lymphocytes (%) (Auto) 16.8L, Monocytes (%) (Auto) 11.1H, Eosinophils (%) (Auto ) 2.3, Basophils (%) (Auto) 0.6, Sodium Level 137, Potassium Level 4.4, Chloride Level 103, Carbon Dioxide Level 25, Anion Gap 9, Blood Urea Nitrogen 30H, Creatinine 7.4H, Estimat Glomerular Filtration Rate 6.8, Glucose Level 166H , Calcium Level 8.6, Total Bilirubin 0.5, Aspartate Amino Transf (AST/SGOT) 12L , Alanine Aminotransferase (ALT/SGPT) 16, Alkaline Phosphatase 59, Total Protein 7.3, Albumin 3.7, Globulin 3.6, Albumin/Globulin Ratio 1.0 Impression: Moderate right hydronephrosis/hydroureter secondary to a suspected tiny stones within the distal right ureter. Limited evaluation due to body habitus. Anterior abdominal wall hernia in the area of the umbilicus containing fat. Status post hysterectomy. Trace pericardial effusion. Generalized cardiomegaly. Hiatal hernia Height (Feet): 5 Height (Inches): 9.00 Weight (Pounds): 315 General Appearance: no apparent distress EENT: normal ENT inspection Neck: supple Cardiovascular: normal rate Respiratory/Chest: decreased breath sounds Abdomen: normal bowel sounds, non tender, soft Extremities: non-tender CLARE MUSTAFA Oct 06, 2017 11:00
[2017-10-06] MEDS: cefTRIAXone 1 GM in D5W 55 ML IVPB SCH (13:06)
--- NOTE | 2017-10-06 14:05 | Nephrology Progress Note ---
Assessment/Plan Assessment 1. End-stage renal disease. 2. Anemia of chronic kidney disease. 3. Hypertension urgency. 4. Urinary tract infection. 5. History of diabetes. Plan plan repeat dialysis today UF as tolerated continue epogen monitoring phos,pth Subjective Constitutional: Reports: no symptoms HEENT: Reports: no symptoms Neurologic/Psychiatric: Reports: no symptoms Subjective alert and wake had dialysis yesterday Objective Objective Last 24 Hour Vital Signs Date Time Temp Pulse Resp B/P (MAP) Pulse Ox O2 Delivery O2 Flow Rate FiO2 10/06/17 12:00 98.1 77 18 148/87 99 Room Air 10/06/17 11:53 77 10/06/17 08:05 86 10/06/17 08:00 97.5 78 18 166/56 95 Room Air 10/06/17 07:00 76 18 Room Air 21 10/06/17 05:03 78 10/06/17 04:00 97.7 77 20 154/88 95 Room Air 21 10/06/17 00:51 97.6 64 20 136/58 Room Air 10/06/17 00:49 Room Air 10/06/17 00:00 78 10/06/17 00:00 96.6 76 18 184/107 95 Room Air 21 10/05/17 20:27 54 18 Room Air 21 10/05/17 20:00 96.6 51 20 167/78 95 Room Air 21 10/05/17 20:00 75 10/05/17 16:14 76 10/05/17 16:00 96.6 76 22 156/74 Room Air Intake and Output 10/06/17 10/07/17 19:00 07:00 Output Total 200 ml Balance -200 ml Output Urine Total 200 ml Laboratory Tests 10/05/17 19:25: Magnesium Level 2.3, Troponin I 0.038, Pro-B-Type Natriuretic Peptide 49532F 10/06/17 09:14: White Blood Count 7.7, Red Blood Count 4.51, Hemoglobin 10.7L, Hematocrit 36.8L , Mean Corpuscular Volume 82, Mean Corpuscular Hemoglobin 23.8L, Mean Corpuscular Hemoglobin Concent 29.2L, Red Cell Distribution Width 15.9H, Platelet Count 243, Mean Platelet Volume 6.5, Neutrophils (%) (Auto) 69.3, Lymphocytes (%) (Auto) 16.8L, Monocytes (%) (Auto) 11.1H, Eosinophils (%) (Auto ) 2.3, Basophils (%) (Auto) 0.6, Sodium Level 137, Potassium Level 4.4, Chloride Level 103, Carbon Dioxide Level 25, Anion Gap 9, Blood Urea Nitrogen 30H, Creatinine 7.4H, Estimat Glomerular Filtration Rate 6.8, Glucose Level 166H , Calcium Level 8.6, Total Bilirubin 0.5, Aspartate Amino Transf (AST/SGOT) 12L , Alanine Aminotransferase (ALT/SGPT) 16, Alkaline Phosphatase 59, Total Protein 7.3, Albumin 3.7, Globulin 3.6, Albumin/Globulin Ratio 1.0 Height (Feet): 5 Height (Inches): 9.00 Weight (Pounds): 312 Objective HEAD AND NECK: No JVP. No LAD. No thyromegaly. Extraocular movements intact. Pupils are reactive to light and accommodation. LUNGS: Clear to auscultation. CARDIAC: Regular rate and rhythm. S1 and S2. No murmur. No rub. ABDOMEN: Obese, nontender, and nondistended. EXTREMITIES: A 1 to 2+ edema. No clubbing. No cyanosis. ROMY SANCHEZ Oct 06, 2017 14:05
[2017-10-06] MEDS ORDERED: NS 275ml ONE (16:07)
[2017-10-06] MEDS ORDERED: Tubing IV Secondary IV ONE (16:07)
--- NOTE | 2017-10-06 20:45 | Consultation ---
DATE OF CONSULTATION: 10/06/2017 ENDOCRINOLOGY CONSULTATION CONSULTING PHYSICIAN: Franko Rogel M.D. REFERRING PHYSICIAN: Roderick Henning D.O. REASON FOR CONSULTATION: Diabetes management. HISTORY OF PRESENT ILLNESS: The patient is a pleasant 62-year-old female, morbidly obese, with a long-standing history of diabetes with end-stage renal disease, on hemodialysis, who was admitted to the hospital with increase in shortness of breath and blood sugar was out of control. Thus, Endocrinology was consulted in order to assist in the management of diabetes. As an outpatient, she is on glimepiride monotherapy and she is home for glucose monitoring. PAST MEDICAL HISTORY: 1. End-stage renal disease. 2. Diabetes. 3. Anemia of chronic kidney disease. 4. Osteodystrophy. 5. Hypertension. 6. Morbidly obese. 7. Legally blind. 8. COPD. 9. Peripheral vascular disease. 10. Diabetic neuropathy. 11. Tremor. PAST SURGICAL HISTORY: 1. AV fistula placement on the upper right extremity. 2. Perm-A-Cath placement in the past. MEDICATIONS: Reviewed and reconciled. FAMILY HISTORY: Noncontributory. REVIEW OF SYSTEMS: A 12-point review of systems was performed. Pertinent positives and negatives are as mentioned in the history of present illness. PHYSICAL EXAMINATION: VITAL SIGNS: Blood pressure is 180/90, pulse of 80, temperature 98.2, and respiratory rate of 18. HEENT/NECK: No JVD. No thyromegaly. HEART: Regular. LUNGS: Clear. ABDOMEN: Positive bowel sounds. Distended. Obese EXTREMITIES: 1 to 2+ lower extremity edema. LABORATORY VALUES: Sodium 135, potassium 4.8, chloride 100, bicarbonate 22, BUN 34, creatinine 7.9, and glucose of 132. BNP of 12,686. TSH 0.4. A1c 8.1. DIAGNOSES: 1. Congestive heart failure. 2. Diabetes out of control. 3. End-stage renal disease, on hemodialysis. PLAN: 1. Discontinue glimepiride. 2. Consider starting Januvia 25 mg daily. 3. Sliding scale insulin has been ordered. 4. We will add Starlix 60 mg a.c. t.i.d. if the blood sugar rises. 5. I will monitor blood glucose before meals and at bedtime with correction dose of NovoLog insulin as needed. 6. I will follow her during the hospital stay. Thank you, Dr. Henning, for the courtesy of this consultation. Franko Rogel M.D. DR: LEE JOB#: [id number] CC:
--- NOTE | 2017-10-06 21:30 | Consultation ---
DATE OF CONSULTATION: 10/06/2017 INFECTIOUS DISEASES CONSULTATION CONSULTING PHYSICIAN: Claudio Land M.D. REFERRING PHYSICIAN: Roderick Henning D.O. This consultation has been done on behalf of Dr. Seng Callaway. HISTORY OF PRESENTING ILLNESS: This is a 62-year-old lady with history of congestive heart failure, hypertension, renal failure, on dialysis, who came in with nausea and vomiting. She was seen in [facility] and an Infectious Diseases consultation has been obtained for antibiotics. PAST MEDICAL HISTORY: 1. History of congestive heart failure. 2. Hypertension. 3. End-stage renal disease, on dialysis. 4. History of obesity. MEDICATIONS: As an inpatient, she is on MiraLax, amlodipine, Benadryl, docusate, morphine, Lasix, subcutaneous heparin, insulin, Tylenol, Zofran, Ambien, Mylanta, clonidine, albuterol, and ipratropium. ALLERGIES: No known drug allergies. SOCIAL HISTORY: She does not smoke, drink, or use drugs. FAMILY HISTORY: Noncontributory. REVIEW OF SYSTEMS: Unable to obtain currently. PHYSICAL EXAMINATION: VITAL SIGNS: Temperature of 97.5, T-max of 99, pulse of 86, respiratory rate of 18, blood pressure 166/56, and O2 saturation of 95%. HEENT: Pupils are equally reactive to light and accommodation. Mouth appears clean without thrush. NECK: Supple. No adenopathy. No JVD. CARDIOVASCULAR: Regular rate and rhythm. No murmurs. LUNGS: Clear to auscultation bilaterally. No crackles. No wheezes. ABDOMEN: Soft and nontender. No organomegaly. EXTREMITIES: No cyanosis. No clubbing or edema. LABORATORY DATA: White count of 7.7, hemoglobin 10.7, hematocrit 36.8, MCV 82, platelet count of 243. Sodium 137, potassium 4.4, chloride 103, bicarbonate 25, BUN 30, creatinine 7.4, glucose 166, and calcium 8.6. Total bilirubin 0.5. AST 12, ALT 16, and alkaline phosphatase 59. Total protein 7.3 and albumin 3.7. Lipase of 78 on 10/04/2017. UA showing 0 to 2 white cells. Urine cultures are negative so far. DIAGNOSTIC DATA: CT abdomen and pelvis showing moderate right-sided hydronephrosis, hydroureter, suspected two tiny stone, anterior abdominal wall hernia noted, status post hysterectomy, trace pericardial effusion noted, and generalized cardiomegaly noted. ASSESSMENT: 1. This is a 62-year-old lady with history of hypertension and renal failure, on dialysis, who has been having low-grade fevers. We would be concerned regarding a urinary tract infection or a pneumonia as a possibility. 2. Hypertension. 3. Renal failure. PLAN: 1. We will order a chest x-ray. 2. We will start the patient on ceftriaxone. 3. We will follow up cultures and adjust antibiotics accordingly. I would like to thank, Dr. Roderick Henning, for this consultation. Claudio Land M.D. DR: Mally JOB#: [id number] CC: Roderick Henning D.O.
[2017-10-07 00:02] VITALS: BP 179/59
[2017-10-07] MEDS: Miralax 17gm pkt ORAL SCH ×2 (00:33→20:59)
[2017-10-07] MEDS: NovoLOG Insulin Flexpen SUBQ SCH ×5 (00:36→21:02)
[2017-10-07] MEDS: Heparin 5000 units/ml inj SUBQ SCH ×3 (00:36→21:01)
[2017-10-07] MEDS: DiphenhydrAMINE 50mg/ml Inj IVP PRN ×3 (02:17→17:27)
[2017-10-07 04:00] VITALS: BP 161/81
--- NOTE | 2017-10-07 06:49 | General Progress Note ---
Assessment/Plan Problem List: (1) Uncontrolled diabetes mellitus ICD Codes: E11.9 - Type 2 diabetes mellitus without complications SNOMED: 946061093 (2) Hypercholesteremia ICD Codes: E78.0 - Hypercholesterolemia SNOMED: 56163420 (3) Diabetic sensory polyneuropathy ICD Codes: E11.42 - Type 2 diabetes mellitus with diabetic polyneuropathy SNOMED: 28065256, 266338038 (4) Morbid obesity ICD Codes: E66.01 - Morbid (severe) obesity due to excess calories SNOMED: 076842879 (5) ESRD (end stage renal disease) on dialysis ICD Codes: N18.6 - End stage renal failure on dialysis; Z99.2 - Dependence on renal dialysis SNOMED: 187586389 (6) Anemia ICD Codes: D64.9 - Anemia, unspecified SNOMED: 786530268 Assessment/Plan add Januvia 25 mg daily continue Novolog sliding scale ac / hs Subjective Allergies: Coded Allergies: NO KNOWN ALLERGIES (Unverified Allergy, Unknown, 10/15/15) All Systems: reviewed and negative except above Subjective events noted Objective Last 24 Hour Vital Signs Date Time Temp Pulse Resp B/P (MAP) Pulse Ox O2 Delivery O2 Flow Rate FiO2 10/07/17 04:00 97.6 73 18 161/81 98 Room Air 10/07/17 04:00 77 10/07/17 01:31 168/80 10/07/17 00:34 Room Air 10/07/17 00:02 97.6 76 20 179/59 96 Room Air 10/07/17 00:00 77 10/06/17 23:30 Room Air 10/06/17 23:30 97.7 78 20 169/80 Room Air 10/06/17 23:00 Room Air 10/06/17 22:04 75 18 Room Air 10/06/17 20:00 98.0 76 20 168/108 95 Room Air 10/06/17 20:00 82 10/06/17 19:00 Room Air 10/06/17 19:00 Room Air 10/06/17 18:00 97.0 10/06/17 16:41 97.0 75 18 165/73 98 Room Air 10/06/17 15:40 74 10/06/17 12:00 98.1 77 18 148/87 99 Room Air 10/06/17 11:53 77 10/06/17 08:05 86 10/06/17 08:00 97.5 78 18 166/56 95 Room Air 10/06/17 07:00 76 18 Room Air 21 Laboratory Tests 10/06/17 09:14: White Blood Count 7.7, Red Blood Count 4.51, Hemoglobin 10.7L, Hematocrit 36.8L , Mean Corpuscular Volume 82, Mean Corpuscular Hemoglobin 23.8L, Mean Corpuscular Hemoglobin Concent 29.2L, Red Cell Distribution Width 15.9H, Platelet Count 243, Mean Platelet Volume 6.5, Neutrophils (%) (Auto) 69.3, Lymphocytes (%) (Auto) 16.8L, Monocytes (%) (Auto) 11.1H, Eosinophils (%) (Auto ) 2.3, Basophils (%) (Auto) 0.6, Sodium Level 137, Potassium Level 4.4, Chloride Level 103, Carbon Dioxide Level 25, Anion Gap 9, Blood Urea Nitrogen 30H, Creatinine 7.4H, Estimat Glomerular Filtration Rate 6.8, Glucose Level 166H , Calcium Level 8.6, Total Bilirubin 0.5, Aspartate Amino Transf (AST/SGOT) 12L , Alanine Aminotransferase (ALT/SGPT) 16, Alkaline Phosphatase 59, Total Protein 7.3, Albumin 3.7, Globulin 3.6, Albumin/Globulin Ratio 1.0 Height (Feet): 5 Height (Inches): 9.00 Weight (Pounds): 312 General Appearance: no apparent distress EENT: pale conjunctivae Neck: normal alignment Cardiovascular: normal rate Respiratory/Chest: lungs clear Abdomen: normal bowel sounds Edema: no edema noted Arm (L), no edema noted Arm (R), no edema noted Leg (L), no edema noted Leg (R), no edema noted Pedal (L), no edema noted Pedal (R), no edema noted Generalized Objective Current Medications Medications (Trade) Dose Ordered Sig/Josi Route PRN Reason Start Time Stop Time Status Last Admin Dose Admin Acetaminophen (Tylenol) 650 mg Q4H PRN ORAL fever 10/04/17 14:30 11/03/17 14:29 Al Hydroxide/Mg Hydroxide (Mylanta II) 30 ml Q6H PRN ORAL dyspepsia 10/04/17 14:30 11/03/17 14:29 Albuterol/ Ipratropium (Albuterol/ Ipratropium) 3 ml Q6HRT PRN HHN dyspnea 10/04/17 14:30 10/09/17 14:29 Amlodipine Besylate (Norvasc) 2.5 mg DAILY ORAL 10/05/17 18:00 11/04/17 17:59 Ceftriaxone Sodium 1 gm/ Dextrose 55 ml @ 110 mls/hr Q24H IVPB 10/06/17 12:00 10/13/17 11:59 10/06/17 13:06 Clonidine HCl (Catapres) 0.1 mg Q4H PRN ORAL For High Blood Pressure 10/04/17 14:30 11/03/17 14:29 10/07/17 01:31 Dextrose (Dextrose 50%) STAT PRN IV Hypoglycemia 10/04/17 14:30 11/03/17 14:29 Diphenhydramine HCl (Benadryl) 25 mg Q6H PRN IVP Itching 10/05/17 17:15 11/04/17 17:14 10/07/17 02:17 Docusate Sodium (Colace) 100 mg THREE TIMES A DAY ORAL 10/05/17 13:00 11/04/17 12:59 10/06/17 17:16 Furosemide (Lasix) 100 mg EVERY 8 HOURS PRN IV dyspnea 10/04/17 22:00 11/03/17 21:59 Heparin Sodium (Porcine) (Heparin 5000 units/ml) 5,000 units EVERY 12 HOURS SUBQ 10/04/17 21:00 11/03/17 20:59 10/07/17 00:36 Insulin Aspart (NovoLOG) BEFORE MEALS AND HS SUBQ 10/04/17 16:30 11/03/17 16:29 10/07/17 00:36 Morphine Sulfate (Morphine Sulfate) 4 mg Q4H PRN IVP Severe Pain (Pain Scale 7-10) 10/04/17 22:30 10/11/17 22:29 10/06/17 17:30 Ondansetron HCl (Zofran) 4 mg Q6H PRN IVP Nausea & Vomiting 10/04/17 14:30 11/03/17 14:29 10/05/17 04:14 Polyethylene Glycol (Miralax) 17 gm BEDTIME ORAL 10/05/17 21:00 12/10/17 20:59 10/07/17 00:33 Polyethylene Glycol (Miralax) 17 gm HSPRN PRN ORAL Constipation 10/04/17 14:30 11/03/17 14:29 Zolpidem Tartrate (Ambien) 5 mg HSPRN PRN ORAL Insomnia 10/04/17 14:30 10/11/17 14:29 Item Value Date Time Bedside Blood Glucose 171 mg/dl H 10/07/17 0036 Bedside Blood Glucose 105 mg/dl 10/06/17 1630 Bedside Blood Glucose 140 mg/dl H 10/06/17 1220 RUDDY JIM Oct 07, 2017 06:49
--- NOTE | 2017-10-07 07:37 | General Progress Note ---
Assessment/Plan Problem List: (1) Anemia, chronic disease ICD Codes: D63.8 - Anemia in other chronic diseases classified elsewhere SNOMED: 812117204 (2) End stage renal disease on dialysis ICD Codes: N18.6 - End stage renal failure on dialysis; Z99.2 - Dependence on renal dialysis SNOMED: 612440220 (3) Hypertension ICD Codes: I10 - Hypertension SNOMED: 54117601 (4) CHF (congestive heart failure) ICD Codes: I50.9 - Congestive heart failure SNOMED: 80572944 (5) Morbid obesity ICD Codes: E66.01 - Morbid obesity SNOMED: 267468153 (6) Diabetes ICD Codes: E11.9 - Diabetes SNOMED: 50645787 (7) Intractable abdominal pain ICD Codes: R10.9 - Unspecified abdominal pain SNOMED: 87992712, 175366129 Assessment/Plan ct reviewed no acute finding fu labs HD fu H&H hold gi procedures for now Subjective ROS Limited/Unobtainable: Yes Allergies: Coded Allergies: NO KNOWN ALLERGIES (Unverified Allergy, Unknown, 10/15/15) Subjective c/o abd pain Objective Last 24 Hour Vital Signs Date Time Temp Pulse Resp B/P (MAP) Pulse Ox O2 Delivery O2 Flow Rate FiO2 10/07/17 04:00 97.6 73 18 161/81 98 Room Air 10/07/17 04:00 77 10/07/17 01:31 168/80 10/07/17 00:34 Room Air 10/07/17 00:02 97.6 76 20 179/59 96 Room Air 10/07/17 00:00 77 10/06/17 23:30 Room Air 10/06/17 23:30 97.7 78 20 169/80 Room Air 10/06/17 23:00 Room Air 10/06/17 22:04 75 18 Room Air 10/06/17 20:00 98.0 76 20 168/108 95 Room Air 10/06/17 20:00 82 10/06/17 19:00 Room Air 10/06/17 19:00 Room Air 10/06/17 18:00 97.0 10/06/17 16:41 97.0 75 18 165/73 98 Room Air 10/06/17 15:40 74 10/06/17 12:00 98.1 77 18 148/87 99 Room Air 10/06/17 11:53 77 10/06/17 08:05 86 10/06/17 08:00 97.5 78 18 166/56 95 Room Air Laboratory Tests 10/06/17 09:14: White Blood Count 7.7, Red Blood Count 4.51, Hemoglobin 10.7L, Hematocrit 36.8L , Mean Corpuscular Volume 82, Mean Corpuscular Hemoglobin 23.8L, Mean Corpuscular Hemoglobin Concent 29.2L, Red Cell Distribution Width 15.9H, Platelet Count 243, Mean Platelet Volume 6.5, Neutrophils (%) (Auto) 69.3, Lymphocytes (%) (Auto) 16.8L, Monocytes (%) (Auto) 11.1H, Eosinophils (%) (Auto ) 2.3, Basophils (%) (Auto) 0.6, Sodium Level 137, Potassium Level 4.4, Chloride Level 103, Carbon Dioxide Level 25, Anion Gap 9, Blood Urea Nitrogen 30H, Creatinine 7.4H, Estimat Glomerular Filtration Rate 6.8, Glucose Level 166H , Calcium Level 8.6, Total Bilirubin 0.5, Aspartate Amino Transf (AST/SGOT) 12L , Alanine Aminotransferase (ALT/SGPT) 16, Alkaline Phosphatase 59, Total Protein 7.3, Albumin 3.7, Globulin 3.6, Albumin/Globulin Ratio 1.0 Procedure: CT Abdomen Pelvis w/Contrast Indication: Abdominal pain Technique: Continuous helical transaxial imaging of the abdomen and pelvis was obtained from the lung bases to the pubic symphysis during intravenous contrast administration. Coronal 2-D reformats were also obtained. Study obtained in a Siemens sensation [address] Automatic Exposure Control was utilized. Total Dose length Product (DLP): [address] Dose Index Volume (CTDIvol): 0.15, 19.75, 19.75 mGy Comparison: None Findings: There is a hiatal hernia. There is a trace pericardial effusion and cardiomegaly present. Lung bases are clear. There is moderate right hydronephrosis/hydroureter there are at least 2 or 3 tiny radiopaque stones suspected in the distal ureter ( 1-3 mm). The most proximal stone is suspected on image 64 (series 3). The second stone is suspected within the distal ureter image 68. A third stone may be present in the distal right ureter image 71. This stone is about a centimeter or 2 proximal to the UVJ. Imaging is limited because of large body habitus which results in diminished resolution and [id number] ratio. The left kidney is unremarkable. No other stones identified within the collecting system or kidney. Gallbladder is distended. Umbilical hernia containing fat demonstrated. In addition there is protrusion of the abdomen and stretching of the muscular fascia or linea alba. A moderate amount stool in the colon. Urinary bladder is unremarkable. Uterus is absent. Impression: Moderate right hydronephrosis/hydroureter secondary to a suspected tiny stones within the distal right ureter. Height (Feet): 5 Height (Inches): 9.00 Weight (Pounds): 308 General Appearance: alert EENT: normal ENT inspection Neck: supple Cardiovascular: normal rate Respiratory/Chest: decreased breath sounds Abdomen: normal bowel sounds, soft, tender Extremities: non-tender CLARE MUSTAFA Oct 07, 2017 07:37
[2017-10-07] MEDS: sitaGLIPtin 25mg tab ORAL SCH (07:58)
[2017-10-07 08:00] VITALS: BP 158/77
--- NOTE | 2017-10-07 08:54 | General Progress Note ---
Assessment/Plan Problem List: (1) CHF (congestive heart failure) ICD Codes: I50.9 - Congestive heart failure SNOMED: 32917893 (2) Hypertension ICD Codes: I10 - Hypertension SNOMED: 04162458 (3) Morbid obesity ICD Codes: E66.01 - Morbid obesity SNOMED: 949524949 (4) Sepsis ICD Codes: A41.9 - Sepsis, unspecified organism SNOMED: 43948972 (5) CKD (chronic kidney disease) ICD Codes: N18.9 - CKD (chronic kidney disease) SNOMED: 477619041 (6) Anemia, chronic disease ICD Codes: D63.8 - Anemia in other chronic diseases classified elsewhere SNOMED: 114875934 (7) Blindness ICD Codes: H54.0 - Blindness, both eyes SNOMED: 738272876 (8) End stage renal disease on dialysis ICD Codes: N18.6 - End stage renal failure on dialysis; Z99.2 - Dependence on renal dialysis SNOMED: 313717095 Status: stable, progressing, tolerating diet Assessment/Plan ot pt diet abx dialysis uro endo eval cbc bmp am dc plan w hh Subjective Constitutional: Reports: weakness Allergies: Coded Allergies: NO KNOWN ALLERGIES (Unverified Allergy, Unknown, 10/15/15) All Systems: reviewed and negative except above Subjective sleepy sl nausea calm in bed Objective Last 24 Hour Vital Signs Date Time Temp Pulse Resp B/P (MAP) Pulse Ox O2 Delivery O2 Flow Rate FiO2 10/07/17 07:00 75 16 Room Air 10/07/17 04:00 97.6 73 18 161/81 98 Room Air 10/07/17 04:00 77 10/07/17 01:31 168/80 10/07/17 00:34 Room Air 10/07/17 00:02 97.6 76 20 179/59 96 Room Air 10/07/17 00:00 77 10/06/17 23:30 Room Air 10/06/17 23:30 97.7 78 20 169/80 Room Air 10/06/17 23:00 Room Air 10/06/17 22:04 75 18 Room Air 10/06/17 20:00 98.0 76 20 168/108 95 Room Air 10/06/17 20:00 82 10/06/17 19:00 Room Air 10/06/17 19:00 Room Air 10/06/17 18:00 97.0 10/06/17 16:41 97.0 75 18 165/73 98 Room Air 10/06/17 15:40 74 10/06/17 12:00 98.1 77 18 148/87 99 Room Air 10/06/17 11:53 77 Laboratory Tests 10/06/17 09:14: White Blood Count 7.7, Red Blood Count 4.51, Hemoglobin 10.7L, Hematocrit 36.8L , Mean Corpuscular Volume 82, Mean Corpuscular Hemoglobin 23.8L, Mean Corpuscular Hemoglobin Concent 29.2L, Red Cell Distribution Width 15.9H, Platelet Count 243, Mean Platelet Volume 6.5, Neutrophils (%) (Auto) 69.3, Lymphocytes (%) (Auto) 16.8L, Monocytes (%) (Auto) 11.1H, Eosinophils (%) (Auto ) 2.3, Basophils (%) (Auto) 0.6, Sodium Level 137, Potassium Level 4.4, Chloride Level 103, Carbon Dioxide Level 25, Anion Gap 9, Blood Urea Nitrogen 30H, Creatinine 7.4H, Estimat Glomerular Filtration Rate 6.8, Glucose Level 166H , Calcium Level 8.6, Total Bilirubin 0.5, Aspartate Amino Transf (AST/SGOT) 12L , Alanine Aminotransferase (ALT/SGPT) 16, Alkaline Phosphatase 59, Total Protein 7.3, Albumin 3.7, Globulin 3.6, Albumin/Globulin Ratio 1.0 Height (Feet): 5 Height (Inches): 9.00 Weight (Pounds): 308 General Appearance: lethargic EENT: normal ENT inspection Neck: normal alignment Cardiovascular: normal peripheral pulses, normal rate, regular rhythm Respiratory/Chest: chest wall non-tender, lungs clear, normal breath sounds Abdomen: normal bowel sounds, non tender, soft Extremities: normal inspection Edema: 1+ Arm (L), 1+ Arm (R), 1+ Leg (L), 1+ Leg (R), 1+ Pedal (L), 1+ Pedal ( R), 1+ Generalized Neurologic: responsive, motor weakness Skin: normal pigmentation, warm/dry BRIE LAN Oct 07, 2017 08:54
[2017-10-07] MEDS: Docusate 100mg cap ORAL SCH ×3 (09:23→17:12)
[2017-10-07 09:51] LABS: BASOPHILS % (AUTO) 0.6 % (0.0-2.0); EOSINOPHILS % (AUTO) 3.8 % (0.0-3.0); LYMPHOCYTES % (AUTO) 21.7 % (20.0-45.0); MEAN CORPUSCULAR HEMOGLOBIN 24.4 PG (27.0-31.0); MEAN CORPUSCULAR HGB CONC 29.6 G/DL (32.0-36.0); MEAN CORPUSCULAR VOLUME 82 FL (80-99); MEAN PLATELET VOLUME 6.9 FL (6.5-10.1); MONOCYTES % (AUTO) 14.2 % (1.0-10.0); NEUTROPHILS % (AUTO) 59.9 % (45.0-75.0); PLATELET COUNT 217 K/UL (150-450); RED CELL DISTRIBUTION WIDTH 15.9 % (11.6-14.8); WHITE BLOOD COUNT 7.1 K/UL (4.8-10.8)
[2017-10-07 10:07] LABS: ANION GAP 8 mmol/L (5-15); CALCIUM 8.5 MG/DL (8.5-10.1); CARBON DIOXIDE 32 MMOL/L (21-32); CHLORIDE 100 MMOL/L (98-107); CREATININE 6.7 MG/DL (0.55-1.30); GLOMERULAR FILTRATION RATE 7.6 mL/min (>60); POTASSIUM 3.9 MMOL/L (3.5-5.1); SODIUM 140 MMOL/L (136-145)
--- NOTE | 2017-10-07 10:33 | Pulmonology Progress Note ---
Assessment/Plan Problems: (1) Intractable abdominal pain (2) CHF (congestive heart failure) (3) ESRD (end stage renal disease) on dialysis (4) Hydronephrosis (5) Obesity (6) Diabetes Assessment/Plan still lots of PVC's on monitor 4 beats of vtach after HD, f/u cardio recommendations. symptomatic treatment sliding scale HD by nephrology check electrolytes Keep in teli dc planning in process Subjective ROS Limited/Unobtainable: No Constitutional: Reports: no symptoms HEENT: Repors: no symptoms Respiratory: Reports: no symptoms, wheezing Allergies: Coded Allergies: NO KNOWN ALLERGIES (Unverified Allergy, Unknown, 10/15/15) Objective Last 24 Hour Vital Signs Date Time Temp Pulse Resp B/P (MAP) Pulse Ox O2 Delivery O2 Flow Rate FiO2 10/07/17 09:23 76 158/76 10/07/17 08:00 97.7 76 14 158/77 92 Room Air 10/07/17 07:00 75 16 Room Air 10/07/17 04:00 97.6 73 18 161/81 98 Room Air 10/07/17 04:00 77 10/07/17 01:31 168/80 10/07/17 00:34 Room Air 10/07/17 00:02 97.6 76 20 179/59 96 Room Air 10/07/17 00:00 77 10/06/17 23:30 Room Air 10/06/17 23:30 97.7 78 20 169/80 Room Air 10/06/17 23:00 Room Air 10/06/17 22:04 75 18 Room Air 10/06/17 20:00 98.0 76 20 168/108 95 Room Air 10/06/17 20:00 82 10/06/17 19:00 Room Air 21 10/06/17 19:00 Room Air 10/06/17 18:00 97.0 10/06/17 16:41 97.0 75 18 165/73 98 Room Air 10/06/17 15:40 74 10/06/17 12:00 98.1 77 18 148/87 99 Room Air 10/06/17 11:53 77 General Appearance: WD/WN, no acute distress HEENT: normocephalic, atraumatic Respiratory/Chest: chest wall non-tender, normal breath sounds Abdomen: normal bowel sounds, soft, non tender Genitourinary: normal external genitalia Extremities: no cyanosis, no clubbing Skin: no rash Microbiology Date/Time Source Procedure Growth Status 10/04/17 16:05 Urine,Clean Catch Urine Culture - Final NO GROWTH AFTER 48 HOURS Complete Laboratory Tests 10/07/17 09:00: White Blood Count 7.1, Red Blood Count 4.30, Hemoglobin 10.5L, Hematocrit 35.3L , Mean Corpuscular Volume 82, Mean Corpuscular Hemoglobin 24.4L, Mean Corpuscular Hemoglobin Concent 29.6L, Red Cell Distribution Width 15.9H, Platelet Count 217, Mean Platelet Volume 6.9, Neutrophils (%) (Auto) 59.9, Lymphocytes (%) (Auto) 21.7, Monocytes (%) (Auto) 14.2H, Eosinophils (%) (Auto) 3.8H, Basophils (%) (Auto) 0.6, Sodium Level 140, Potassium Level 3.9, Chloride Level 100, Carbon Dioxide Level 32, Anion Gap 8, Blood Urea Nitrogen 29H, Creatinine 6.7H, Estimat Glomerular Filtration Rate 7.6, Glucose Level 131H, Calcium Level 8.5 Current Medications Medications (Trade) Dose Ordered Sig/Josi Route PRN Reason Start Time Stop Time Status Last Admin Dose Admin Acetaminophen (Tylenol) 650 mg Q4H PRN ORAL fever 10/04/17 14:30 11/03/17 14:29 Al Hydroxide/Mg Hydroxide (Mylanta II) 30 ml Q6H PRN ORAL dyspepsia 10/04/17 14:30 11/03/17 14:29 Albuterol/ Ipratropium (Albuterol/ Ipratropium) 3 ml Q6HRT PRN HHN dyspnea 10/04/17 14:30 10/09/17 14:29 Amlodipine Besylate (Norvasc) 2.5 mg DAILY ORAL 10/05/17 18:00 11/04/17 17:59 10/07/17 09:23 Ceftriaxone Sodium 1 gm/ Dextrose 55 ml @ 110 mls/hr Q24H IVPB 10/06/17 12:00 10/13/17 11:59 10/06/17 13:06 Clonidine HCl (Catapres) 0.1 mg Q4H PRN ORAL For High Blood Pressure 10/04/17 14:30 11/03/17 14:29 10/07/17 01:31 Dextrose (Dextrose 50%) STAT PRN IV Hypoglycemia 10/04/17 14:30 11/03/17 14:29 Diphenhydramine HCl (Benadryl) 25 mg Q6H PRN IVP Itching 10/05/17 17:15 11/04/17 17:14 10/07/17 09:22 Docusate Sodium (Colace) 100 mg THREE TIMES A DAY ORAL 10/05/17 13:00 11/04/17 12:59 10/07/17 09:23 Furosemide (Lasix) 100 mg EVERY 8 HOURS PRN IV dyspnea 10/04/17 22:00 11/03/17 21:59 Heparin Sodium (Porcine) (Heparin 5000 units/ml) 5,000 units EVERY 12 HOURS SUBQ 10/04/17 21:00 11/03/17 20:59 10/07/17 09:23 Insulin Aspart (NovoLOG) BEFORE MEALS AND HS SUBQ 10/04/17 16:30 11/03/17 16:29 10/07/17 07:04 Morphine Sulfate (Morphine Sulfate) 4 mg Q4H PRN IVP Severe Pain (Pain Scale 7-10) 10/04/17 22:30 10/11/17 22:29 10/06/17 17:30 Ondansetron HCl (Zofran) 4 mg Q6H PRN IVP Nausea & Vomiting 10/04/17 14:30 11/03/17 14:29 10/07/17 07:58 Polyethylene Glycol (Miralax) 17 gm BEDTIME ORAL 10/05/17 21:00 11/04/17 20:59 10/07/17 00:33 Polyethylene Glycol (Miralax) 17 gm HSPRN PRN ORAL Constipation 10/04/17 14:30 11/03/17 14:29 Sitagliptin Phosphate (Januvia) 25 mg ACBREAKFAST ORAL 10/07/17 07:00 11/06/17 06:59 10/07/17 07:58 Zolpidem Tartrate (Ambien) 5 mg HSPRN PRN ORAL Insomnia 10/04/17 14:30 10/11/17 14:29 JONES BARAKAT Oct 07, 2017 10:33
--- NOTE | 2017-10-07 10:40 | Diagnostic Imaging Report ---
Indication: PAIN Comparison: 07/19/2017. Findings: Single view of the chest shows cardiomegaly. Pulmonary vasculature is normal. Lungs are clear. Bones are unremarkable. Impression: Cardiomegaly. There is no acute pneumonitis or failure.
[2017-10-07] MEDS: Morphine Sulfate 4mg/ml Inj IVP PRN (11:45)
[2017-10-07] MEDS: cefTRIAXone 1 GM in D5W 55 ML IVPB SCH (11:46)
[2017-10-07 12:00] VITALS: BP 149/66
--- NOTE | 2017-10-07 12:42 | Infectious Diseases Prog Note ---
Assessment/Plan Assessment/Plan A: UTI Nephrolithiasis Hydronephrosis DM type 2 Morbid obesity P; Continue Rocephin Subjective ROS Limited/Unobtainable: No Respiratory: Reports: no symptoms Cardiovascular: Reports: no symptoms Gastrointestinal/Abdominal: Reports: no symptoms Genitourinary: Reports: no symptoms Allergies: Coded Allergies: NO KNOWN ALLERGIES (Unverified Allergy, Unknown, 10/15/15) Objective Vital Signs Last 24 Hour Vital Signs Date Time Temp Pulse Resp B/P (MAP) Pulse Ox O2 Delivery O2 Flow Rate FiO2 10/07/17 12:00 97.7 77 16 149/66 93 Room Air 10/07/17 09:23 76 158/76 10/07/17 08:00 97.7 76 14 158/77 92 Room Air 10/07/17 08:00 79 10/07/17 07:00 75 16 Room Air 10/07/17 04:00 97.6 73 18 161/81 98 Room Air 10/07/17 04:00 77 10/07/17 01:31 168/80 10/07/17 00:34 Room Air 10/07/17 00:02 97.6 76 20 179/59 96 Room Air 10/07/17 00:00 77 10/06/17 23:30 Room Air 10/06/17 23:30 97.7 78 20 169/80 Room Air 10/06/17 23:00 Room Air 21 10/06/17 22:04 75 18 Room Air 10/06/17 20:00 98.0 76 20 168/108 95 Room Air 10/06/17 20:00 82 10/06/17 19:00 Room Air 21 10/06/17 19:00 Room Air 10/06/17 18:00 97.0 10/06/17 16:41 97.0 75 18 165/73 98 Room Air 10/06/17 15:40 74 Height (Feet): 5 Height (Inches): 9.00 Weight (Pounds): 308 General Appearance: other - obese HEENT: other Respiratory/Chest: lungs clear Cardiovascular: normal rate Abdomen: soft, non tender Extremities: no edema Neurologic/Psychiatric: alert, oriented x 3, responsive Microbiology Date/Time Source Procedure Growth Status 10/04/17 16:05 Urine,Clean Catch Urine Culture - Final NO GROWTH AFTER 48 HOURS Complete Laboratory Tests Test 10/07/17 09:00 White Blood Count 7.1 K/UL (4.8-10.8) Red Blood Count 4.30 M/UL (4.20-5.40) Hemoglobin 10.5 G/DL (12.0-16.0) L Hematocrit 35.3 % (37.0-47.0) L Mean Corpuscular Volume 82 FL (80-99) Mean Corpuscular Hemoglobin 24.4 PG (27.0-31.0) L Mean Corpuscular Hemoglobin Concent 29.6 G/DL (32.0-36.0) L Red Cell Distribution Width 15.9 % (11.6-14.8) H Platelet Count 217 K/UL (150-450) Mean Platelet Volume 6.9 FL (6.5-10.1) Neutrophils (%) (Auto) 59.9 % (45.0-75.0) Lymphocytes (%) (Auto) 21.7 % (20.0-45.0) Monocytes (%) (Auto) 14.2 % (1.0-10.0) H Eosinophils (%) (Auto) 3.8 % (0.0-3.0) H Basophils (%) (Auto) 0.6 % (0.0-2.0) Sodium Level 140 MMOL/L (136-145) Potassium Level 3.9 MMOL/L (3.5-5.1) Chloride Level 100 MMOL/L (98-107) Carbon Dioxide Level 32 MMOL/L (21-32) Anion Gap 8 mmol/L (5-15) Blood Urea Nitrogen 29 mg/dL (7-18) H Creatinine 6.7 MG/DL (0.55-1.30) H Estimat Glomerular Filtration Rate 7.6 mL/min (>60) Glucose Level 131 MG/DL (74-106) H Calcium Level 8.5 MG/DL (8.5-10.1) Current Medications Medications (Trade) Dose Ordered Sig/Josi Route PRN Reason Start Time Stop Time Status Last Admin Dose Admin Acetaminophen (Tylenol) 650 mg Q4H PRN ORAL fever 10/04/17 14:30 11/03/17 14:29 Al Hydroxide/Mg Hydroxide (Mylanta II) 30 ml Q6H PRN ORAL dyspepsia 10/04/17 14:30 129/17 14:29 Albuterol/ Ipratropium (Albuterol/ Ipratropium) 3 ml Q6HRT PRN HHN dyspnea 10/04/17 14:30 10/09/17 14:29 Amlodipine Besylate (Norvasc) 2.5 mg DAILY ORAL 10/05/17 18:00 11/04/17 17:59 10/07/17 09:23 Ceftriaxone Sodium 1 gm/ Dextrose 55 ml @ 110 mls/hr Q24H IVPB 10/06/17 12:00 10/13/17 11:59 10/07/17 11:46 Clonidine HCl (Catapres) 0.1 mg Q4H PRN ORAL For High Blood Pressure 10/04/17 14:30 11/03/17 14:29 10/07/17 01:31 Dextrose (Dextrose 50%) STAT PRN IV Hypoglycemia 10/04/17 14:30 11/03/17 14:29 Diphenhydramine HCl (Benadryl) 25 mg Q6H PRN IVP Itching 10/05/17 17:15 11/04/17 17:14 10/07/17 09:22 Docusate Sodium (Colace) 100 mg THREE TIMES A DAY ORAL 10/05/17 13:00 11/04/17 12:59 10/07/17 12:32 Furosemide (Lasix) 100 mg EVERY 8 HOURS PRN IV dyspnea 10/04/17 22:00 11/03/17 21:59 Heparin Sodium (Porcine) (Heparin 5000 units/ml) 5,000 units EVERY 12 HOURS SUBQ 10/04/17 21:00 11/03/17 20:59 10/07/17 09:23 Insulin Aspart (NovoLOG) BEFORE MEALS AND HS SUBQ 10/04/17 16:30 11/03/17 16:29 10/07/17 07:04 Morphine Sulfate (Morphine Sulfate) 4 mg Q4H PRN IVP Severe Pain (Pain Scale 7-10) 10/04/17 22:30 10/11/17 22:29 10/07/17 11:45 Ondansetron HCl (Zofran) 4 mg Q6H PRN IVP Nausea & Vomiting 10/04/17 14:30 11/03/17 14:29 10/07/17 07:58 Polyethylene Glycol (Miralax) 17 gm BEDTIME ORAL 10/05/17 21:00 11/04/17 20:59 10/07/17 00:33 Polyethylene Glycol (Miralax) 17 gm HSPRN PRN ORAL Constipation 10/04/17 14:30 11/03/17 14:29 Sitagliptin Phosphate (Januvia) 25 mg ACBREAKFAST ORAL 10/07/17 07:00 11/06/17 06:59 10/07/17 07:58 Zolpidem Tartrate (Ambien) 5 mg HSPRN PRN ORAL Insomnia 10/04/17 14:30 10/11/17 14:29 BEKAH HAMILTON Oct 07, 2017 12:42
--- NOTE | 2017-10-07 13:49 | Nephrology Progress Note ---
Assessment/Plan Assessment 1. End-stage renal disease. 2. Anemia of chronic kidney disease. 3. Hypertension urgency. 4. Urinary tract infection. 5. History of diabetes. Plan plan repeat dialysis on Sunday as tolerated continue epogen monitoring phos,pth Subjective Constitutional: Reports: no symptoms HEENT: Reports: no symptoms Genitourinary: Reports: no symptoms Neurologic/Psychiatric: Reports: no symptoms Subjective alert and wake had dialysis yesterday Objective Objective Last 24 Hour Vital Signs Date Time Temp Pulse Resp B/P (MAP) Pulse Ox O2 Delivery O2 Flow Rate FiO2 10/07/17 12:00 97.7 77 16 149/66 93 Room Air 10/07/17 12:00 77 10/07/17 09:23 76 158/76 10/07/17 08:00 97.7 76 14 158/77 92 Room Air 10/07/17 08:00 79 10/07/17 07:00 75 16 Room Air 10/07/17 04:00 97.6 73 18 161/81 98 Room Air 10/07/17 04:00 77 10/07/17 01:31 168/80 10/07/17 00:34 Room Air 10/07/17 00:02 97.6 76 20 179/59 96 Room Air 10/07/17 00:00 77 10/06/17 23:30 Room Air 10/06/17 23:30 97.7 78 20 169/80 Room Air 10/06/17 23:00 Room Air 10/06/17 22:04 75 18 Room Air 10/06/17 20:00 98.0 76 20 168/108 95 Room Air 10/06/17 20:00 82 10/06/17 19:00 Room Air 10/06/17 19:00 Room Air 10/06/17 18:00 97.0 10/06/17 16:41 97.0 75 18 165/73 98 Room Air 10/06/17 15:40 74 Intake and Output 10/07/17 10/08/17 19:00 07:00 Intake Total 55 ml Balance 55 ml IV Total 55 ml Laboratory Tests 10/07/17 09:00: White Blood Count 7.1, Red Blood Count 4.30, Hemoglobin 10.5L, Hematocrit 35.3L , Mean Corpuscular Volume 82, Mean Corpuscular Hemoglobin 24.4L, Mean Corpuscular Hemoglobin Concent 29.6L, Red Cell Distribution Width 15.9H, Platelet Count 217, Mean Platelet Volume 6.9, Neutrophils (%) (Auto) 59.9, Lymphocytes (%) (Auto) 21.7, Monocytes (%) (Auto) 14.2H, Eosinophils (%) (Auto) 3.8H, Basophils (%) (Auto) 0.6, Sodium Level 140, Potassium Level 3.9, Chloride Level 100, Carbon Dioxide Level 32, Anion Gap 8, Blood Urea Nitrogen 29H, Creatinine 6.7H, Estimat Glomerular Filtration Rate 7.6, Glucose Level 131H, Calcium Level 8.5 Height (Feet): 5 Height (Inches): 9.00 Weight (Pounds): 308 Objective HEAD AND NECK: No JVP. No LAD. No thyromegaly. Extraocular movements intact. Pupils are reactive to light and accommodation. LUNGS: Clear to auscultation. CARDIAC: Regular rate and rhythm. S1 and S2. No murmur. No rub. ABDOMEN: Obese, nontender, and nondistended. EXTREMITIES: A 1 to 2+ edema. No clubbing. No cyanosis. ROMY SANCHEZ Oct 07, 2017 13:49
[2017-10-07 15:56] VITALS: BP 170/84
--- NOTE | 2017-10-07 17:17 | Cardiology Progress Note ---
Assessment/Plan Assessment/Plan 1. NSVT, keep Mg >2.5 and K >4.0, start carvedilol 3.125mg po bid. 2. History of coronary artery disease, status post percutaneous coronary intervention in 2012, last 2D echocardiography has shown normal LV systolic function with left ventricular ejection fraction of approximately 65%. 3. Hypertensive heart disease. Continue amlodipine, coreg added today. 4. History of diabetes mellitus. The patient will benefit from combination of aspirin and statin. Subjective Subjective Four beats of V.tach was reported by the nurse, Mg level is 2.3. Sinus rhythm at 76. Objective Last 24 Hour Vital Signs Date Time Temp Pulse Resp B/P (MAP) Pulse Ox O2 Delivery O2 Flow Rate FiO2 10/07/17 15:56 97.9 73 18 170/84 91 Room Air 10/07/17 12:00 97.7 77 16 149/66 93 Room Air 10/07/17 12:00 77 10/07/17 09:23 76 158/76 10/07/17 08:00 97.7 76 14 158/77 92 Room Air 10/07/17 08:00 79 10/07/17 07:00 75 16 Room Air 10/07/17 04:00 97.6 73 18 161/81 98 Room Air 10/07/17 04:00 77 10/07/17 01:31 168/80 10/07/17 00:34 Room Air 10/07/17 00:02 97.6 76 20 179/59 96 Room Air 10/07/17 00:00 77 10/06/17 23:30 Room Air 10/06/17 23:30 97.7 78 20 169/80 Room Air 10/06/17 23:00 Room Air 10/06/17 22:04 75 18 Room Air 10/06/17 20:00 98.0 76 20 168/108 95 Room Air 10/06/17 20:00 82 10/06/17 19:00 Room Air 10/06/17 19:00 Room Air 10/06/17 18:00 97.0 Intake and Output 10/07/17 10/08/17 18:59 06:59 Intake Total 55 ml Balance 55 ml IV Total 55 ml Laboratory Tests Test 10/07/17 09:00 White Blood Count 7.1 K/UL (4.8-10.8) Red Blood Count 4.30 M/UL (4.20-5.40) Hemoglobin 10.5 G/DL (12.0-16.0) L Hematocrit 35.3 % (37.0-47.0) L Mean Corpuscular Volume 82 FL (80-99) Mean Corpuscular Hemoglobin 24.4 PG (27.0-31.0) L Mean Corpuscular Hemoglobin Concent 29.6 G/DL (32.0-36.0) L Red Cell Distribution Width 15.9 % (11.6-14.8) H Platelet Count 217 K/UL (150-450) Mean Platelet Volume 6.9 FL (6.5-10.1) Neutrophils (%) (Auto) 59.9 % (45.0-75.0) Lymphocytes (%) (Auto) 21.7 % (20.0-45.0) Monocytes (%) (Auto) 14.2 % (1.0-10.0) H Eosinophils (%) (Auto) 3.8 % (0.0-3.0) H Basophils (%) (Auto) 0.6 % (0.0-2.0) Sodium Level 140 MMOL/L (136-145) Potassium Level 3.9 MMOL/L (3.5-5.1) Chloride Level 100 MMOL/L (98-107) Carbon Dioxide Level 32 MMOL/L (21-32) Anion Gap 8 mmol/L (5-15) Blood Urea Nitrogen 29 mg/dL (7-18) H Creatinine 6.7 MG/DL (0.55-1.30) H Estimat Glomerular Filtration Rate 7.6 mL/min (>60) Glucose Level 131 MG/DL (74-106) H Calcium Level 8.5 MG/DL (8.5-10.1) Objective GENERAL: The patient is an unfortunate, morbidly obese, legally blind 62-year-old female, in no apparent respiratory distress. HEENT: Atraumatic and normocephalic. Anicteric. Pupils are equal, round, and reactive to light and accommodation. Extraocular muscles intact. NECK: JVP cannot be assessed due to obesity. No carotid bruit. CARDIOVASCULAR SYSTEM: Normal S1, S2. Regular rate and rhythm. No murmurs, gallops, or rubs. PMI is at fourth intercostal space at the midclavicular line. LUNGS: Clear to auscultation bilaterally. ABDOMEN: Soft, nontender, and nondistended. No hepatosplenomegaly. Positive bowel sounds. EXTREMITIES: No evidence of edema, clubbing, or cyanosis. ARNIE BARBER Oct 07, 2017 17:17
[2017-10-07 20:32] VITALS: BP 142/70
[2017-10-08 00:55] VITALS: BP 139/62
[2017-10-08 04:00] VITALS: BP 158/75
[2017-10-08] MEDS: NovoLOG Insulin Flexpen SUBQ SCH ×2 (06:38→12:09)
[2017-10-08] MEDS: sitaGLIPtin 25mg tab ORAL SCH (06:38)
--- NOTE | 2017-10-08 07:36 | General Progress Note ---
Assessment/Plan Problem List: (1) Uncontrolled diabetes mellitus ICD Codes: E11.9 - Type 2 diabetes mellitus without complications SNOMED: 461299324 (2) Hypercholesteremia ICD Codes: E78.0 - Hypercholesterolemia SNOMED: 69539249 (3) Diabetic sensory polyneuropathy ICD Codes: E11.42 - Type 2 diabetes mellitus with diabetic polyneuropathy SNOMED: 67022254, 562876605 (4) Morbid obesity ICD Codes: E66.01 - Morbid (severe) obesity due to excess calories SNOMED: 082561606 (5) ESRD (end stage renal disease) on dialysis ICD Codes: N18.6 - End stage renal failure on dialysis; Z99.2 - Dependence on renal dialysis SNOMED: 737949558 (6) Anemia ICD Codes: D64.9 - Anemia, unspecified SNOMED: 319042491 Assessment/Plan continue Januvia 25 mg daily continue Novolog sliding scale ac / hs Subjective Allergies: Coded Allergies: NO KNOWN ALLERGIES (Unverified Allergy, Unknown, 10/15/15) All Systems: reviewed and negative except above Subjective events noted Objective Last 24 Hour Vital Signs Date Time Temp Pulse Resp B/P (MAP) Pulse Ox O2 Delivery O2 Flow Rate FiO2 10/08/17 04:00 97.8 73 19 158/75 97 Room Air 10/08/17 04:00 70 10/08/17 00:55 97.8 69 20 139/62 94 Room Air 10/08/17 00:00 74 10/07/17 20:32 97.7 77 20 142/70 95 Room Air 10/07/17 20:16 79 16 Room Air 10/07/17 20:00 75 10/07/17 17:56 78 170/84 10/07/17 16:00 78 10/07/17 15:56 97.9 73 18 170/84 91 Room Air 10/07/17 12:00 97.7 77 16 149/66 93 Room Air 10/07/17 12:00 77 10/07/17 09:23 76 158/76 10/07/17 08:00 97.7 76 14 158/77 92 Room Air 10/07/17 08:00 79 Laboratory Tests 10/07/17 09:00: White Blood Count 7.1, Red Blood Count 4.30, Hemoglobin 10.5L, Hematocrit 35.3L , Mean Corpuscular Volume 82, Mean Corpuscular Hemoglobin 24.4L, Mean Corpuscular Hemoglobin Concent 29.6L, Red Cell Distribution Width 15.9H, Platelet Count 217, Mean Platelet Volume 6.9, Neutrophils (%) (Auto) 59.9, Lymphocytes (%) (Auto) 21.7, Monocytes (%) (Auto) 14.2H, Eosinophils (%) (Auto) 3.8H, Basophils (%) (Auto) 0.6, Sodium Level 140, Potassium Level 3.9, Chloride Level 100, Carbon Dioxide Level 32, Anion Gap 8, Blood Urea Nitrogen 29H, Creatinine 6.7H, Estimat Glomerular Filtration Rate 7.6, Glucose Level 131H, Calcium Level 8.5 Height (Feet): 5 Height (Inches): 9.00 Weight (Pounds): 311 General Appearance: no apparent distress Neck: normal alignment Cardiovascular: normal rate Respiratory/Chest: lungs clear Abdomen: normal bowel sounds Pelvis: normal external exam Objective Current Medications Medications (Trade) Dose Ordered Sig/Ojsi Route PRN Reason Start Time Stop Time Status Last Admin Dose Admin Acetaminophen (Tylenol) 650 mg Q4H PRN ORAL fever 10/04/17 14:30 11/03/17 14:29 Al Hydroxide/Mg Hydroxide (Mylanta II) 30 ml Q6H PRN ORAL dyspepsia 10/04/17 14:30 11/03/17 14:29 Albuterol/ Ipratropium (Albuterol/ Ipratropium) 3 ml Q6HRT PRN HHN dyspnea 10/04/17 14:30 10/09/17 14:29 Amlodipine Besylate (Norvasc) 2.5 mg DAILY ORAL 10/05/17 18:00 11/04/17 17:59 10/07/17 09:23 Carvedilol (Coreg) 3.125 mg BID ORAL 10/07/17 18:00 11/06/17 17:59 10/07/17 17:56 Ceftriaxone Sodium 1 gm/ Dextrose 55 ml @ 110 mls/hr Q24H IVPB 10/06/17 12:00 10/13/17 11:59 10/07/17 11:46 Clonidine HCl (Catapres) 0.1 mg Q4H PRN ORAL For High Blood Pressure 10/04/17 14:30 11/03/17 14:29 10/07/17 01:31 Dextrose (Dextrose 50%) STAT PRN IV Hypoglycemia 10/04/17 14:30 11/03/17 14:29 Diphenhydramine HCl (Benadryl) 25 mg Q6H PRN IVP Itching 10/05/17 17:15 11/04/17 17:14 10/07/17 17:27 Docusate Sodium (Colace) 100 mg THREE TIMES A DAY ORAL 10/05/17 13:00 11/04/17 12:59 10/07/17 17:12 Furosemide (Lasix) 100 mg EVERY 8 HOURS PRN IV dyspnea 10/04/17 22:00 11/03/17 21:59 Heparin Sodium (Porcine) (Heparin 5000 units/ml) 5,000 units EVERY 12 HOURS SUBQ 10/04/17 21:00 11/03/17 20:59 10/07/17 21:01 Insulin Aspart (NovoLOG) BEFORE MEALS AND HS SUBQ 10/04/17 16:30 11/03/17 16:29 10/08/17 06:38 Morphine Sulfate (Morphine Sulfate) 4 mg Q4H PRN IVP Severe Pain (Pain Scale 7-10) 10/04/17 22:30 10/11/17 22:29 10/07/17 11:45 Ondansetron HCl (Zofran) 4 mg Q6H PRN IVP Nausea & Vomiting 10/04/17 14:30 11/03/17 14:29 10/07/17 07:58 Polyethylene Glycol (Miralax) 17 gm BEDTIME ORAL 10/05/17 21:00 11/04/17 20:59 10/07/17 20:59 Polyethylene Glycol (Miralax) 17 gm HSPRN PRN ORAL Constipation 10/04/17 14:30 11/03/17 14:29 Sitagliptin Phosphate (Januvia) 25 mg ACBREAKFAST ORAL 10/07/17 07:00 11/06/17 06:59 10/08/17 06:38 Zolpidem Tartrate (Ambien) 5 mg HSPRN PRN ORAL Insomnia 10/04/17 14:30 10/11/17 14:29 Item Value Date Time Bedside Blood Glucose 199 mg/dl H 10/08/17 0638 Bedside Blood Glucose 133 mg/dl H 10/07/17 2102 Bedside Blood Glucose 216 mg/dl H 10/07/17 1712 Bedside Blood Glucose 108 mg/dl 10/07/17 1122 Bedside Blood Glucose 202 mg/dl H 10/07/17 0704 Bedside Blood Glucose 202 mg/dl H 10/07/17 0630 RUDDY JIM Oct 08, 2017 07:36
--- NOTE | 2017-10-08 08:06 | Nephrology Progress Note ---
Assessment/Plan Assessment 1. End-stage renal disease. 2. Anemia of chronic kidney disease. 3. Hypertension urgency. 4. Urinary tract infection. 5. History of diabetes. Plan plan repeat dialysis on Sunday UF as tolerated continue epogen monitoring phos,pth Subjective Subjective alert and wake had dialysis yesterday Objective Objective Last 24 Hour Vital Signs Date Time Temp Pulse Resp B/P (MAP) Pulse Ox O2 Delivery O2 Flow Rate FiO2 10/08/17 04:00 97.8 73 19 158/75 97 Room Air 10/08/17 04:00 70 10/08/17 00:55 97.8 69 20 139/62 94 Room Air 10/08/17 00:00 74 10/07/17 20:32 97.7 77 20 142/70 95 Room Air 10/07/17 20:16 79 16 Room Air 21 10/07/17 20:00 75 10/07/17 17:56 78 170/84 10/07/17 16:00 78 10/07/17 15:56 97.9 73 18 170/84 91 Room Air 10/07/17 12:00 97.7 77 16 149/66 93 Room Air 10/07/17 12:00 77 10/07/17 09:23 76 158/76 Laboratory Tests 10/07/17 09:00: White Blood Count 7.1, Red Blood Count 4.30, Hemoglobin 10.5L, Hematocrit 35.3L , Mean Corpuscular Volume 82, Mean Corpuscular Hemoglobin 24.4L, Mean Corpuscular Hemoglobin Concent 29.6L, Red Cell Distribution Width 15.9H, Platelet Count 217, Mean Platelet Volume 6.9, Neutrophils (%) (Auto) 59.9, Lymphocytes (%) (Auto) 21.7, Monocytes (%) (Auto) 14.2H, Eosinophils (%) (Auto) 3.8H, Basophils (%) (Auto) 0.6, Sodium Level 140, Potassium Level 3.9, Chloride Level 100, Carbon Dioxide Level 32, Anion Gap 8, Blood Urea Nitrogen 29H, Creatinine 6.7H, Estimat Glomerular Filtration Rate 7.6, Glucose Level 131H, Calcium Level 8.5 Height (Feet): 5 Height (Inches): 9.00 Weight (Pounds): 311 Objective HEAD AND NECK: No JVP. No LAD. No thyromegaly. Extraocular movements intact. Pupils are reactive to light and accommodation. LUNGS: Clear to auscultation. CARDIAC: Regular rate and rhythm. S1 and S2. No murmur. No rub. ABDOMEN: Obese, nontender, and nondistended. EXTREMITIES: A 1 to 2+ edema. No clubbing. No cyanosis. ROMY SANCHEZ Oct 08, 2017 08:06
[2017-10-08 08:40] VITALS: BP 158/92
[2017-10-08] MEDS: Docusate 100mg cap ORAL SCH ×2 (08:43→13:19)
[2017-10-08] MEDS: Heparin 5000 units/ml inj SUBQ SCH (08:49)
[2017-10-08 10:09] LABS: ANION GAP 9 mmol/L (5-15); CALCIUM 8.6 MG/DL (8.5-10.1); CARBON DIOXIDE 30 MMOL/L (21-32); CHLORIDE 98 MMOL/L (98-107); CREATININE 8.5 MG/DL (0.55-1.30); GLOMERULAR FILTRATION RATE 5.7 mL/min (>60); POTASSIUM 4.4 MMOL/L (3.5-5.1); SODIUM 137 MMOL/L (136-145)
[2017-10-08 10:17] LABS: BASOPHILS % (AUTO) 1.6 % (0.0-2.0); EOSINOPHILS % (AUTO) 5.1 % (0.0-3.0); LYMPHOCYTES % (AUTO) 24.6 % (20.0-45.0); MEAN CORPUSCULAR HEMOGLOBIN 24.7 PG (27.0-31.0); MEAN CORPUSCULAR HGB CONC 30.6 G/DL (32.0-36.0); MEAN CORPUSCULAR VOLUME 81 FL (80-99); MEAN PLATELET VOLUME 7.5 FL (6.5-10.1); MONOCYTES % (AUTO) 14.2 % (1.0-10.0); NEUTROPHILS % (AUTO) 54.6 % (45.0-75.0); PLATELET COUNT 227 K/UL (150-450); RED BLOOD COUNT 4.27 M/UL (4.20-5.40); RED CELL DISTRIBUTION WIDTH 15.4 % (11.6-14.8); WHITE BLOOD COUNT 8.9 K/UL (4.8-10.8)
--- NOTE | 2017-10-08 10:22 | GI Progress Note ---
Assessment/Plan Problems: (1) Constipation ICD Codes: K59.00 - Constipation, unspecified SNOMED: 66238197 (2) Diabetes ICD Codes: E11.9 - Type 2 diabetes mellitus without complications SNOMED: 38837437 (3) CHF (congestive heart failure) ICD Codes: I50.9 - Heart failure, unspecified SNOMED: 01007585 (4) Diabetes ICD Codes: E11.9 - Diabetes SNOMED: 09234131 (5) Anemia ICD Codes: D64.9 - Anemia, unspecified SNOMED: 048597676 (6) Anemia, chronic disease ICD Codes: D63.8 - Anemia in other chronic diseases classified elsewhere SNOMED: 445854155 Status: stable Status Narrative Discussed with Dr. Garcia. Assessment/Plan okay for DC per GI standpoint ct reviewed no acute finding fu labs HD fu H&H outpatient GI procedures Subjective Subjective abdominal pain improved one episode of emesis, scant Objective Last 24 Hour Vital Signs Date Time Temp Pulse Resp B/P (MAP) Pulse Ox O2 Delivery O2 Flow Rate FiO2 10/08/17 08:45 72 158/92 10/08/17 08:43 72 158/92 10/08/17 08:40 97.6 72 19 158/92 Nasal Cannula 10/08/17 07:00 69 18 Room Air 10/08/17 04:00 97.8 73 19 158/75 97 Room Air 10/08/17 04:00 70 10/08/17 00:55 97.8 69 20 139/62 94 Room Air 10/08/17 00:00 74 10/07/17 20:32 97.7 77 20 142/70 95 Room Air 10/07/17 20:16 79 16 Room Air 21 10/07/17 20:00 75 10/07/17 17:56 78 170/84 10/07/17 16:00 78 10/07/17 15:56 97.9 73 18 170/84 91 Room Air 10/07/17 12:00 97.7 77 16 149/66 93 Room Air 10/07/17 12:00 77 Laboratory Tests Test 10/08/17 09:30 White Blood Count 8.9 K/UL (4.8-10.8) Red Blood Count 4.27 M/UL (4.20-5.40) Hemoglobin 10.6 G/DL (12.0-16.0) L Hematocrit 34.5 % (37.0-47.0) L Mean Corpuscular Volume 81 FL (80-99) Mean Corpuscular Hemoglobin 24.7 PG (27.0-31.0) L Mean Corpuscular Hemoglobin Concent 30.6 G/DL (32.0-36.0) L Red Cell Distribution Width 15.4 % (11.6-14.8) H Platelet Count 227 K/UL (150-450) Mean Platelet Volume 7.5 FL (6.5-10.1) Neutrophils (%) (Auto) 54.6 % (45.0-75.0) Lymphocytes (%) (Auto) 24.6 % (20.0-45.0) Monocytes (%) (Auto) 14.2 % (1.0-10.0) H Eosinophils (%) (Auto) 5.1 % (0.0-3.0) H Basophils (%) (Auto) 1.6 % (0.0-2.0) Sodium Level 137 MMOL/L (136-145) Potassium Level 4.4 MMOL/L (3.5-5.1) Chloride Level 98 MMOL/L (98-107) Carbon Dioxide Level 30 MMOL/L (21-32) Anion Gap 9 mmol/L (5-15) Blood Urea Nitrogen 43 mg/dL (7-18) H Creatinine 8.5 MG/DL (0.55-1.30) H Estimat Glomerular Filtration Rate 5.7 mL/min (>60) Glucose Level 141 MG/DL (74-106) H Calcium Level 8.6 MG/DL (8.5-10.1) Height (Feet): 5 Height (Inches): 9.00 Weight (Pounds): 311 General Appearance: WD/WN, no apparent distress, alert, obese Cardiovascular: normal rate Respiratory/Chest: normal breath sounds, no respiratory distress Abdominal Exam: normal bowel sounds, non tender, soft Extremities: normal range of motion, non-tender Gale Martin N.P. Oct 08, 2017 10:22
--- NOTE | 2017-10-08 10:35 | Infectious Diseases Prog Note ---
Assessment/Plan Assessment/Plan A: UTI Nephrolithiasis Hydronephrosis DM type 2 Morbid obesity P; discontinue Rocephin Can be discharge with PO Levaquin X 4 days F/u by urologist in outpatient Subjective ROS Limited/Unobtainable: No Constitutional: Reports: no symptoms Respiratory: Reports: no symptoms Cardiovascular: Reports: no symptoms Gastrointestinal/Abdominal: Reports: no symptoms Genitourinary: Reports: no symptoms Allergies: Coded Allergies: NO KNOWN ALLERGIES (Unverified Allergy, Unknown, 10/15/15) Objective Vital Signs Last 24 Hour Vital Signs Date Time Temp Pulse Resp B/P (MAP) Pulse Ox O2 Delivery O2 Flow Rate FiO2 10/08/17 08:45 72 158/92 10/08/17 08:43 72 158/92 10/08/17 08:40 97.6 72 19 158/92 Nasal Cannula 10/08/17 07:00 69 18 Room Air 21 10/08/17 04:00 97.8 73 19 158/75 97 Room Air 10/08/17 04:00 70 10/08/17 00:55 97.8 69 20 139/62 94 Room Air 10/08/17 00:00 74 10/07/17 20:32 97.7 77 20 142/70 95 Room Air 10/07/17 20:16 79 16 Room Air 21 10/07/17 20:00 75 10/07/17 17:56 78 170/84 10/07/17 16:00 78 10/07/17 15:56 97.9 73 18 170/84 91 Room Air 10/07/17 12:00 97.7 77 16 149/66 93 Room Air 10/07/17 12:00 77 Height (Feet): 5 Height (Inches): 9.00 Weight (Pounds): 311 General Appearance: no acute distress HEENT: other - blind Respiratory/Chest: lungs clear Cardiovascular: normal rate Abdomen: soft, non tender Extremities: no edema, other - right arm AVshunt Neurologic/Psychiatric: alert, oriented x 3, responsive Laboratory Tests Test 10/08/17 09:30 White Blood Count 8.9 K/UL (4.8-10.8) Red Blood Count 4.27 M/UL (4.20-5.40) Hemoglobin 10.6 G/DL (12.0-16.0) L Hematocrit 34.5 % (37.0-47.0) L Mean Corpuscular Volume 81 FL (80-99) Mean Corpuscular Hemoglobin 24.7 PG (27.0-31.0) L Mean Corpuscular Hemoglobin Concent 30.6 G/DL (32.0-36.0) L Red Cell Distribution Width 15.4 % (11.6-14.8) H Platelet Count 227 K/UL (150-450) Mean Platelet Volume 7.5 FL (6.5-10.1) Neutrophils (%) (Auto) 54.6 % (45.0-75.0) Lymphocytes (%) (Auto) 24.6 % (20.0-45.0) Monocytes (%) (Auto) 14.2 % (1.0-10.0) H Eosinophils (%) (Auto) 5.1 % (0.0-3.0) H Basophils (%) (Auto) 1.6 % (0.0-2.0) Sodium Level 137 MMOL/L (136-145) Potassium Level 4.4 MMOL/L (3.5-5.1) Chloride Level 98 MMOL/L (98-107) Carbon Dioxide Level 30 MMOL/L (21-32) Anion Gap 9 mmol/L (5-15) Blood Urea Nitrogen 43 mg/dL (7-18) H Creatinine 8.5 MG/DL (0.55-1.30) H Estimat Glomerular Filtration Rate 5.7 mL/min (>60) Glucose Level 141 MG/DL (74-106) H Calcium Level 8.6 MG/DL (8.5-10.1) Current Medications Medications (Trade) Dose Ordered Sig/Josi Route PRN Reason Start Time Stop Time Status Last Admin Dose Admin Acetaminophen (Tylenol) 650 mg Q4H PRN ORAL fever 10/04/17 14:30 11/03/17 14:29 Al Hydroxide/Mg Hydroxide (Mylanta II) 30 ml Q6H PRN ORAL dyspepsia 10/04/17 14:30 11/03/17 14:29 Albuterol/ Ipratropium (Albuterol/ Ipratropium) 3 ml Q6HRT PRN HHN dyspnea 10/04/17 14:30 10/09/17 14:29 Amlodipine Besylate (Norvasc) 2.5 mg DAILY ORAL 10/05/17 18:00 11/04/17 17:59 10/08/17 08:45 Carvedilol (Coreg) 3.125 mg BID ORAL 10/07/17 18:00 11/06/17 17:59 10/08/17 08:43 Ceftriaxone Sodium 1 gm/ Dextrose 55 ml @ 110 mls/hr Q24H IVPB 10/06/17 12:00 10/13/17 11:59 10/07/17 11:46 Clonidine HCl (Catapres) 0.1 mg Q4H PRN ORAL For High Blood Pressure 10/04/17 14:30 11/03/17 14:29 10/07/17 01:31 Dextrose (Dextrose 50%) STAT PRN IV Hypoglycemia 10/04/17 14:30 11/03/17 14:29 Diphenhydramine HCl (Benadryl) 25 mg Q6H PRN IVP Itching 10/05/17 17:15 11/04/17 17:14 10/07/17 17:27 Docusate Sodium (Colace) 100 mg THREE TIMES A DAY ORAL 10/05/17 13:00 11/04/17 12:59 10/08/17 08:43 Furosemide (Lasix) 100 mg EVERY 8 HOURS PRN IV dyspnea 10/04/17 22:00 11/03/17 21:59 Heparin Sodium (Porcine) (Heparin 5000 units/ml) 5,000 units EVERY 12 HOURS SUBQ 10/04/17 21:00 11/03/17 20:59 10/08/17 08:49 Insulin Aspart (NovoLOG) BEFORE MEALS AND HS SUBQ 10/04/17 16:30 11/03/17 16:29 10/08/17 06:38 Morphine Sulfate (Morphine Sulfate) 4 mg Q4H PRN IVP Severe Pain (Pain Scale 7-10) 10/04/17 22:30 10/11/17 22:29 10/07/17 11:45 Ondansetron HCl (Zofran) 4 mg Q6H PRN IVP Nausea & Vomiting 10/04/17 14:30 11/03/17 14:29 10/07/17 07:58 Polyethylene Glycol (Miralax) 17 gm BEDTIME ORAL 10/05/17 21:00 11/04/17 20:59 10/07/17 20:59 Polyethylene Glycol (Miralax) 17 gm HSPRN PRN ORAL Constipation 10/04/17 14:30 11/03/17 14:29 Sitagliptin Phosphate (Januvia) 25 mg ACBREAKFAST ORAL 10/07/17 07:00 11/06/17 06:59 10/08/17 06:38 Zolpidem Tartrate (Ambien) 5 mg HSPRN PRN ORAL Insomnia 10/04/17 14:30 10/11/17 14:29 BEKAH HAMILTON Oct 08, 2017 10:35
--- NOTE | 2017-10-08 11:43 | Pulmonology Progress Note ---
Assessment/Plan Problems: (1) Intractable abdominal pain (2) CHF (congestive heart failure) (3) ESRD (end stage renal disease) on dialysis (4) Hydronephrosis (5) Obesity (6) Diabetes Assessment/Plan still lots of PVC's on monitor keep Mg and K at high normal levels, coreg was added. 4 beats of vtach after HD, f/u cardio recommendations. symptomatic treatment sliding scale HD by nephrology check electrolytes Keep in teli dc planning in process Subjective ROS Limited/Unobtainable: No Interval Events: still has PVC's Allergies: Coded Allergies: NO KNOWN ALLERGIES (Unverified Allergy, Unknown, 10/15/15) Objective Last 24 Hour Vital Signs Date Time Temp Pulse Resp B/P (MAP) Pulse Ox O2 Delivery O2 Flow Rate FiO2 10/08/17 08:45 72 158/92 10/08/17 08:43 72 158/92 10/08/17 08:40 97.6 72 19 158/92 Nasal Cannula 10/08/17 08:00 70 10/08/17 07:00 69 18 Room Air 21 10/08/17 04:00 97.8 73 19 158/75 97 Room Air 10/08/17 04:00 70 10/08/17 00:55 97.8 69 20 139/62 94 Room Air 10/08/17 00:00 74 10/07/17 20:32 97.7 77 20 142/70 95 Room Air 10/07/17 20:16 79 16 Room Air 21 10/07/17 20:00 75 10/07/17 17:56 78 170/84 10/07/17 16:00 78 10/07/17 15:56 97.9 73 18 170/84 91 Room Air 10/07/17 12:00 97.7 77 16 149/66 93 Room Air 10/07/17 12:00 77 General Appearance: WD/WN, no acute distress HEENT: normocephalic, atraumatic Respiratory/Chest: chest wall non-tender, lungs clear Cardiovascular: normal peripheral pulses, normal rate Abdomen: normal bowel sounds, soft, non tender Genitourinary: normal external genitalia Extremities: no clubbing Skin: no lesions Lymphatic: no groin adenopathy Laboratory Tests 10/08/17 09:30: White Blood Count 8.9, Red Blood Count 4.27, Hemoglobin 10.6L, Hematocrit 34.5L , Mean Corpuscular Volume 81, Mean Corpuscular Hemoglobin 24.7L, Mean Corpuscular Hemoglobin Concent 30.6L, Red Cell Distribution Width 15.4H, Platelet Count 227, Mean Platelet Volume 7.5, Neutrophils (%) (Auto) 54.6, Lymphocytes (%) (Auto) 24.6, Monocytes (%) (Auto) 14.2H, Eosinophils (%) (Auto) 5.1H, Basophils (%) (Auto) 1.6, Sodium Level 137, Potassium Level 4.4, Chloride Level 98, Carbon Dioxide Level 30, Anion Gap 9, Blood Urea Nitrogen 43H, Creatinine 8.5H, Estimat Glomerular Filtration Rate 5.7, Glucose Level 141H, Calcium Level 8.6 Current Medications Medications (Trade) Dose Ordered Sig/Josi Route PRN Reason Start Time Stop Time Status Last Admin Dose Admin Acetaminophen (Tylenol) 650 mg Q4H PRN ORAL fever 10/04/17 14:30 11/03/17 14:29 Al Hydroxide/Mg Hydroxide (Mylanta II) 30 ml Q6H PRN ORAL dyspepsia 10/04/17 14:30 11/03/17 14:29 Albuterol/ Ipratropium (Albuterol/ Ipratropium) 3 ml Q6HRT PRN HHN dyspnea 10/04/17 14:30 10/09/17 14:29 Amlodipine Besylate (Norvasc) 2.5 mg DAILY ORAL 10/05/17 18:00 11/04/17 17:59 10/08/17 08:45 Carvedilol (Coreg) 3.125 mg BID ORAL 10/07/17 18:00 11/06/17 17:59 10/08/17 08:43 Ceftriaxone Sodium 1 gm/ Dextrose 55 ml @ 110 mls/hr Q24H IVPB 10/06/17 12:00 10/13/17 11:59 10/07/17 11:46 Clonidine HCl (Catapres) 0.1 mg Q4H PRN ORAL For High Blood Pressure 10/04/17 14:30 11/03/17 14:29 10/07/17 01:31 Dextrose (Dextrose 50%) STAT PRN IV Hypoglycemia 10/04/17 14:30 11/03/17 14:29 Diphenhydramine HCl (Benadryl) 25 mg Q6H PRN IVP Itching 10/05/17 17:15 11/04/17 17:14 10/07/17 17:27 Docusate Sodium (Colace) 100 mg THREE TIMES A DAY ORAL 10/05/17 13:00 11/04/17 12:59 10/08/17 08:43 Furosemide (Lasix) 100 mg EVERY 8 HOURS PRN IV dyspnea 10/04/17 22:00 11/03/17 21:59 Heparin Sodium (Porcine) (Heparin 5000 units/ml) 5,000 units EVERY 12 HOURS SUBQ 10/04/17 21:00 11/03/17 20:59 10/08/17 08:49 Insulin Aspart (NovoLOG) BEFORE MEALS AND HS SUBQ 10/04/17 16:30 11/03/17 16:29 10/08/17 06:38 Morphine Sulfate (Morphine Sulfate) 4 mg Q4H PRN IVP Severe Pain (Pain Scale 7-10) 10/04/17 22:30 10/11/17 22:29 10/07/17 11:45 Ondansetron HCl (Zofran) 4 mg Q6H PRN IVP Nausea & Vomiting 10/04/17 14:30 11/03/17 14:29 10/07/17 07:58 Polyethylene Glycol (Miralax) 17 gm BEDTIME ORAL 10/05/17 21:00 11/04/17 20:59 10/07/17 20:59 Polyethylene Glycol (Miralax) 17 gm HSPRN PRN ORAL Constipation 10/04/17 14:30 11/03/17 14:29 Sitagliptin Phosphate (Januvia) 25 mg ACBREAKFAST ORAL 10/07/17 07:00 11/06/17 06:59 10/08/17 06:38 Zolpidem Tartrate (Ambien) 5 mg HSPRN PRN ORAL Insomnia 10/04/17 14:30 10/11/17 14:29 JONES BARAKAT Oct 08, 2017 11:43
[2017-10-08 12:00] VITALS: BP 157/77
[2017-10-08] MEDS: cefTRIAXone 1 GM in D5W 55 ML IVPB SCH (12:00)
--- NOTE | 2017-10-08 13:15 | General Progress Note ---
Assessment/Plan Problem List: (1) CHF (congestive heart failure) ICD Codes: I50.9 - Congestive heart failure SNOMED: 08559356 (2) Hypertension ICD Codes: I10 - Hypertension SNOMED: 11057359 (3) Morbid obesity ICD Codes: E66.01 - Morbid obesity SNOMED: 924261512 (4) Sepsis ICD Codes: A41.9 - Sepsis, unspecified organism SNOMED: 10532402 (5) CKD (chronic kidney disease) ICD Codes: N18.9 - CKD (chronic kidney disease) SNOMED: 748821768 (6) Anemia, chronic disease ICD Codes: D63.8 - Anemia in other chronic diseases classified elsewhere SNOMED: 843080377 (7) Blindness ICD Codes: H54.0 - Blindness, both eyes SNOMED: 674988480 (8) End stage renal disease on dialysis ICD Codes: N18.6 - End stage renal failure on dialysis; Z99.2 - Dependence on renal dialysis SNOMED: 448141409 Status: stable, progressing, tolerating diet Assessment/Plan ot pt diet abx dialysis uro endo eval dc w hh Subjective Constitutional: Reports: weakness Allergies: Coded Allergies: NO KNOWN ALLERGIES (Unverified Allergy, Unknown, 10/15/15) Subjective sleepy calm in bed Objective Last 24 Hour Vital Signs Date Time Temp Pulse Resp B/P (MAP) Pulse Ox O2 Delivery O2 Flow Rate FiO2 10/08/17 08:45 72 158/92 10/08/17 08:43 72 158/92 10/08/17 08:40 97.6 72 19 158/92 Nasal Cannula 10/08/17 08:00 70 10/08/17 07:00 69 18 Room Air 10/08/17 04:00 97.8 73 19 158/75 97 Room Air 10/08/17 04:00 70 10/08/17 00:55 97.8 69 20 139/62 94 Room Air 10/08/17 00:00 74 10/07/17 20:32 97.7 77 20 142/70 95 Room Air 10/07/17 20:16 79 16 Room Air 21 10/07/17 20:00 75 10/07/17 17:56 78 170/84 10/07/17 16:00 78 10/07/17 15:56 97.9 73 18 170/84 91 Room Air Laboratory Tests 10/08/17 09:30: White Blood Count 8.9, Red Blood Count 4.27, Hemoglobin 10.6L, Hematocrit 34.5L , Mean Corpuscular Volume 81, Mean Corpuscular Hemoglobin 24.7L, Mean Corpuscular Hemoglobin Concent 30.6L, Red Cell Distribution Width 15.4H, Platelet Count 227, Mean Platelet Volume 7.5, Neutrophils (%) (Auto) 54.6, Lymphocytes (%) (Auto) 24.6, Monocytes (%) (Auto) 14.2H, Eosinophils (%) (Auto) 5.1H, Basophils (%) (Auto) 1.6, Sodium Level 137, Potassium Level 4.4, Chloride Level 98, Carbon Dioxide Level 30, Anion Gap 9, Blood Urea Nitrogen 43H, Creatinine 8.5H, Estimat Glomerular Filtration Rate 5.7, Glucose Level 141H, Calcium Level 8.6 Height (Feet): 5 Height (Inches): 9.00 Weight (Pounds): 311 General Appearance: lethargic EENT: normal ENT inspection Neck: normal alignment Cardiovascular: normal peripheral pulses, normal rate, regular rhythm Respiratory/Chest: chest wall non-tender, lungs clear, normal breath sounds Abdomen: normal bowel sounds, non tender, soft Extremities: normal inspection Edema: 1+ Arm (L), 1+ Arm (R), 1+ Leg (L), 1+ Leg (R), 1+ Pedal (L), 1+ Pedal ( R), 1+ Generalized Edema: trace edema Neurologic: responsive, motor weakness Skin: normal pigmentation, warm/dry BRIE LAN Oct 08, 2017 13:15
[2017-10-08] MEDS ORDERED: COREG3.125 MG ORAL (14:06)
[2017-10-08] MEDS ORDERED: NORVASC2.5 MG ORAL (14:07)
--- NOTE | 2017-10-09 15:15 | Discharge Summary ---
Discharge Summary Hospital Course Date of Admission Oct 04, 2017 at 18:33 Date of Discharge Oct 08, 2017 at 15:00 Admitting Diagnosis intractable abd pain, vomiting HPI Tawny Frias is a 62 year old female who was admitted on Oct 04, 2017 at 18:33 for Intractable Abdominal Pain,Vomiting Hospital Course DC SUMMARY #[id number] Discharge Medications Continued Medications: Amlodipine Besylate (Norvasc) 2.5 Mg Tablet 2.5 MG ORAL DAILY, TAB Carvedilol (Coreg) 3.125 Mg Tablet 3.125 MG ORAL EVERY 12 HOURS, TAB Clonidine Hcl* (Catapres*) 0.1 Mg Tablet 0.1 MG ORAL EVERY 4 HOURS PRN for For High Blood Pressure, TAB Diphenhydramine Hcl* (Diphenhydramine Hcl*) 25 Mg Capsule 25 MG ORAL Q6H PRN for Itching, #30 CAP 0 Refills Docusate Sodium (Dok) 100 Mg Capsule 100 MG PO BID, CAP Insulin Aspart (Novolog Flexpen) 100 Unit/1 Ml Insuln.pen 1 UNITS SUBQ AC+HS Discharge Condition Upon Discharge: stable Discharge Disposition Patient was discharged to Home with Home Health(06) Discharge Diagnoses: Discharge Instructions Discharge Instructions Special Instructions I have been assigned to complete a D/C Summary on this account. I was not involved in the patient management Chastity Velasco NP (Vanchtein) Oct 09, 2017 15:15
--- NOTE | 2017-10-10 04:45 | Discharge Summary 2 SIG ---
DATE OF ADMISSION: 10/04/2017 DATE OF DISCHARGE: 10/08/2017 REASON FOR ADMISSION: 62-year-old female with history of coronary artery disease, asthma, end-stage renal disease, on hemodialysis, COPD, morbid obesity, and cardiac stents placed in 2010, presented to the emergency department complaining of abdominal pain for three days. The pain was described as nonradiating, sharp, 10/10 on a scale of 1 to 10. The patient also reported multiple episodes of nausea and vomiting. The patient reported history of hernia. The patient missed dialysis that day due to the pain. She denied chest pain or shortness of breath. Workup in the emergency department revealed elevated blood pressure -147/102. No leukocytosis. Stable hemoglobin and hematocrit. Elevated BUN and creatinine consistent with end-stage renal disease. Troponin negative. Potassium stable. CT of the abdomen and pelvis revealed hiatal hernia and moderate right hydronephrosis, secondary to tiny stones in the distal right ureter. The patient was admitted for intractable abdominal pain and end-stage renal disease. HOSPITAL STAY: The patient was admitted. Pain management was provided. Nephrology, Endocrinology, Cardiology, and GI consults were requested. Per Cardiology, the patient had a history of coronary artery disease with percutaneous cardiac intervention in 2012. Last echocardiogram revealed preserved ejection fraction of 65%. The patient had no cardiac symptoms. Another troponin was checked and was within normal limits. The patient had an episode of nonsustained ventricular tachycardia. Movement Assembly Final Inspector recommended to maintain potassium above 4 and magnesium above 1.7. EKG abnormality was secondary to electrolyte abnormality due to the end-stage renal disease. Blood pressure was managed with calcium-channel hardik. Beta-hardik was added. Aspirin and statin were continued. Nephrology closely followed for hemodialysis and ultrafiltration was provided as tolerated. Anemia workup was consistent with anemia of chronic renal disease. The patient was on Epogen. Hemoglobin and hematocrit closely monitored and remained at the baseline. Electrolytes were closely monitored. Urology seen the patient due to the multiple small stones noted on CT of the abdomen. Urologist discussed condition with the patient and consensus was made for conservative management. GI seen and evaluated the patient. GI recommended symptomatic treatment. The patient had last colonoscopy in 2011 with polypectomy. GI recommended outpatient GI procedure, symptomatic treatment, antiemetic as needed, advance diet, and bowel regimen. GI prophylaxis was provided . Lobster Fisherman seen the patient for management of diabetes. Hemoglobin A1c- 8.1. The patient was started on Januvia in addition to sliding scale. Chest x-ray revealed cardiomegaly, but no acute cardiopulmonary disease. Supplemental oxygen was provided as needed to keep saturation above 92%. Pulse oximetry was stable on room air prior to discharge. The patient initially presented with low-grade fever. There was a concern initially for urinary tract infection or pneumonia as a cause of low grade fever. The patient was started on empiric antibiotics. Urinalysis showed moderate bacteria, but no pyuria and only +1 leukocyte esterase. Subsequently, urine culture revealed no growth, and chest x-ray revealed no acute cardiopulmonary pathology. Subsequently, antibiotics were stopped. No further fever, no leukocytosis. The patient was working with physical and occupational therapists. Dietary recommendation were implemented. The patient was stable for discharge home. FINAL DIAGNOSES: 1. Intractable abdominal pain, resolved. 2. End-stage renal disease, on hemodialysis. 3. History of coronary artery disease with percutaneous coronary intervention in 2012. 4. Hypertensive heart disease. 5. Hypertensive urgency. 6. Nonsustained ventricular tachycardia. 7. Diabetes mellitus, uncontrolled. 8. Diabetic sensory polyneuropathy. 9. Anemia of chronic renal disease. 10. Morbid obesity. 11. Moderate right hydronephrosis, secondary to small ureterovesical junction stones on the right. DISCHARGE INSTRUCTIONS: The patient was discharged home with home health services. FOLLOWUP: Follow up with the primary medical doctor and dialysis. DISCHARGE MEDICATIONS: See medication reconciliation list. Roderick Henning D.O. I have been assigned to dictate discharge summary on this account and I was not involved in the patient's management. Chastity Velasco (Vanchtein) N.PMeli HOOVER: Edgardo JOB#: [id number] CC: JEAN
--- NOTE | 2017-10-10 08:40 | Cardiology Report ---
APPROVED REPORT EXAM: Two-dimensional and M-mode echocardiogram with Doppler and color Doppler. INDICATION Ventricular Function M-Mode DIMENSIONS IVSd2.1 (0.7-1.1cm)Left Atrium (MM)3.6 (1.6-4.0cm) LVDd5.2 (3.5-5.6cm)Aortic Root2.5 (2.0-3.7cm) PWd2.1 (0.7-1.1cm)Aortic Cusp Exc.2.0 (1.5-2.0cm) LVDs2.8 (2.5-4.0cm) PWs3.2 cm Technically difficult study due to poor parasternal acoustical windows. Study quality precludes accurate assessment of regional wall motion. Normal left ventricular chamber size, systolic function and wall motion. Left ventricular ejection fraction estimated to be 55 %. Severe left ventricular hypertrophy. Anterior Echo-free space, may be due to pericardial fat or effusion. Moderate bi-atrial enlargement. Right ventricular chamber size is within normal limits. Mild focal aortic valve sclerosis with adequate cusp excursion. Mildly thickened mitral valve leaflets with normal excursion. Mild mitral annulus and aortic root calcification. Pulmonic valve not well visualized. Normal tricuspid valve structure. IVC dilated at 2.1 cm with physiologic collapse, estimate RAP is 10 mmHg. A color flow and spectral Doppler study was performed and revealed: Trace aortic regurgitation. Mild mitral regurgitation. Mitral diastolic velocities suggest reduced left ventricular relaxation c/w mild LV diastolic dysfunction (Grade I ). Moderate tricuspid regurgitation. Tricuspid systolic velocities suggests peak right ventricular systolic pressure of 54 mmHg, consistent with moderate pulmonary hypertension. No pulmonic regurgitation present.
--- NOTE | 2017-10-11 09:34 | Physician Query ---
PLEASE COMPLETE QUESTION BEFORE SIGNING Dear Dr. BRIE LAN Date: 10/11/17 Pest Control Worker/CDS Name: LEFTY CASTELLON CCS Exercise your independent professional judgment when responding to the query. Questions asked do not imply a particular answer is desired or expected. We greatly appreciate your clarification on this issue. CLINICAL DOCUMENTATION STATES: CHIEF COMPLAINT: Nausea, vomiting, shortness of breath, ESRD, and abdominal pain.The patient had an episodes of nonsustained ventricular tachycardia and recommended to have potassium above 4 and magnesium above 2. Nephrology closely followed for hemodialysis and ultrafiltration was provided as tolerated. Dr. Murillo note:USW-30-kplm-old female with hx of morbid obesity, ESRF on HD presented to ED complaining of abdominal pain for 3 days ago. Pain is sharp, 10 out of 10, nonradiating. Notes multiple episodes of nausea and vomiting. She missed dialysis today because of the pain. Denies chest pain or shortness of breath. No other aggravating or leading factors. Denies any other associated symptom Urology seen the patient due to the multiple small stones noted on CT of the abdomen CLINICAL FINDINGS SHOW: CT SCAN: Moderate right hydronephrosis/hydroureter secondary to a suspected tiny stones within the distal right ureter. Chest x-ray revealed cardiomegaly, no acute cardiopulmonary disease. There was a concern initially for urinary tract infection or pneumonia as a possibility. The patient started on empiric antibiotics. Urinalysis shows moderate bacteria, but no pyuria and only +1 leukocyte esterase.Subsequently, urine culture revealed no growth Please respond to the following question: Is there a underlying diagnosis for the abdominal pain? If so please state below. PHYSICIAN RESPONSE: Please also document in your Progress Notes and/or Discharge Summary and indicate if the condition was present on admission. BRIE LAN M.D. DATE & TIME [facility]
--- NOTE | 2017-10-14 16:15 | Cardiology Report ---
APPROVED REPORT EKG Measurement Heart [id number] Sinus rhythm with 1st degree AV block with premature atrial complexes Possible Inferior infarct, age undetermined Anterior infarct, age undetermined Prolonged QT Abnormal ECG
--- NOTE | 2017-10-23 | Physician Query ---
PLEASE COMPLETE QUESTION BEFORE SIGNING Dear Dr. BRIE LAN Date: 10/23/17 Organ Tuner Electronic/CDS Name: LEFTY CASTLELON CCS Exercise your independent professional judgment when responding to the query. Questions asked do not imply a particular answer is desired or expected. We greatly appreciate your clarification on this issue. CLINICAL DOCUMENTATION STATES: CHIEF COMPLAINT: Nausea, vomiting, shortness of breath, ESRD, and abdominal pain.The patient had an episodes of nonsustained ventricular tachycardia and recommended to have potassium above 4 and magnesium above 2. Nephrology closely followed for hemodialysis and ultrafiltration was provided as tolerated. Dr. Murillo note:FCC-12-mz[age]-old female with hx of morbid obesity, ESRF on HD presented to ED complaining of abdominal pain for 3 days ago. Pain is sharp, 10 out of 10, nonradiating. Notes multiple episodes of nausea and vomiting. She missed dialysis today because of the pain. Denies chest pain or shortness of breath. No other aggravating or leading factors. Denies any other associated symptom Urology seen the patient due to the multiple small stones noted on CT of the abdomen CLINICAL FINDINGS SHOW: CT SCAN: Moderate right hydronephrosis/hydroureter secondary to a suspected tiny stones within the distal right ureter. Chest x-ray revealed cardiomegaly, no acute cardiopulmonary disease. There was a concern initially for urinary tract infection or pneumonia as a possibility. The patient started on empiric antibiotics. Urinalysis shows moderate bacteria, but no pyuria and only +1 leukocyte esterase.Subsequently, urine culture revealed no growth Please respond to the following question: Is there a underlying diagnosis for the abdominal pain? If so please state below. PHYSICIAN RESPONSE: Please also document in your Progress Notes and/or Discharge Summary and indicate if the condition was present on admission. BRIE LAN M.D. DATE & TIME [facility]
== END 2017-10-08 15:00 | disposition home health service (06) | DRG 391 ==
LOC: EDBD 13:37 → EMR 14:10 → EDBEDREQ 16:38 → 2E 18:33
PROC: 5A1D70Z Performance of Urinary Filtration, Intermittent, Less than 6 Hours Per Day (ICD-10-PCS; principal; 2017-10-05)
DX: K20.9 Esophagitis, unspecified (principal); N18.6 End stage renal disease; I13.2 Hypertensive heart and chronic kidney disease with heart failure and with stage 5 chronic kidney disease, or end stage renal disease; E11.22 Type 2 diabetes mellitus with diabetic chronic kidney disease; I47.1 Supraventricular tachycardia; E11.42 Type 2 diabetes mellitus with diabetic polyneuropathy; N13.2 Hydronephrosis with renal and ureteral calculous obstruction; Z68.42 Body mass index [BMI] 45.0-49.9, adult; N13.0 Hydronephrosis with ureteropelvic junction obstruction; N39.0 Urinary tract infection, site not specified; N25.0 Renal osteodystrophy; E11.65 Type 2 diabetes mellitus with hyperglycemia; I50.9 Heart failure, unspecified; Z99.2 Dependence on renal dialysis; R10.9 Unspecified abdominal pain; I16.0 Hypertensive urgency; I25.10 Atherosclerotic heart disease of native coronary artery without angina pectoris; D63.1 Anemia in chronic kidney disease; E66.01 Morbid (severe) obesity due to excess calories; Z79.4 Long term (current) use of insulin; Z95.5 Presence of coronary angioplasty implant and graft; H54.8 Legal blindness, as defined in USA; J44.9 Chronic obstructive pulmonary disease, unspecified; I73.9 Peripheral vascular disease, unspecified; F17.200 Nicotine dependence, unspecified, uncomplicated; K44.9 Diaphragmatic hernia without obstruction or gangrene; E87.8 Other disorders of electrolyte and fluid balance, not elsewhere classified; Z86.010 Personal history of colon polyps; R50.9 Fever, unspecified; Z79.01 Long term (current) use of anticoagulants; I51.7 Cardiomegaly; Z90.710 Acquired absence of both cervix and uterus; K59.00 Constipation, unspecified
CPT/HCPCS: 36415; 71010; 74177; 80048; 80053; 80061; 81003; 82962; 83036; 83690; 83735; 83880; 84443; 84484; 85025; 87081; 87086; 93005; 93306; 94664; 97803; 99285; J1815; J2405

== ENCOUNTER 2018-10-19 18:38 | Emergency (ER) | payer MEDICARE, OTHER ==
[~2018-10-19] VITALS: Ht 172.7 cm; Wt 136.1 kg
[~2018-10-19 18:38] MED LIST changes: +COREG3.125 MG ORAL; +NORVASC2.5 MG ORAL
[2018-10-19 18:40] VITALS: BP 127/78
[2018-10-19] MEDS ORDERED: LISINOPRIL5 MG ORAL (18:51)
[2018-10-19] MEDS ORDERED: CARVEDILOL3.125 MG ORAL (18:51)
[2018-10-19] MEDS ORDERED: GABAPENTIN400 MG ORAL (18:51)
[2018-10-19] MEDS ORDERED: Surgicel 4in x 8in TOPIC ONE (19:00)
--- NOTE | 2018-10-19 19:26 | Emergency Room Report ---
History of Present Illness General Chief Complaint: General Complaint Source: Patient Present Illness HPI Patient presents by paramedics for reports of bleeding shunt in the right upper arm patient is a dialysis patient is getting dialysis through left upper chest catheter She reports recent bleeding from the right upper arm From the shunt which required recent hospitalization and surgical repair Patient had finished her dialysis using the left upper shunt in the chest area after getting home it was reported that she started bleeding from her revised shunt in the upper arm on the right side paramedics summoned and patient presents to the emergency room Denies any chest pain denies any back or flank pain Denies any lightheadedness Allergies: Coded Allergies: NO KNOWN ALLERGIES (Unverified Allergy, Unknown, 10/15/15) Patient History Past Medical History: see triage record Pertinent Family History: none Last Menstrual Period: 2 decades ago Now: No Reviewed Nursing Documentation: PMH: Agreed; PSxH: Agreed Nursing Documentation-PMH Hx Hypertension: Yes - cardiac stents 2010 Hx Pacemaker: No Hx Asthma: Yes Hx COPD: Yes Hx Diabetes: Yes Hx Cancer: No Hx Gastrointestinal Problems: Yes Hx Dialysis: Yes - Sunday, , Sunday Hx Neurological Problems: No Hx Peripheral Neuropathy: Yes - secondary to DM Hx Tremors: Yes Hx Vertigo: Yes Hx Dizziness: Yes Hx Syncope: Yes Hx Headaches: Yes Hx Weakness: Yes Hx Fatigue: Yes Review of Systems All Other Systems: negative except mentioned in HPI Physical Exam Vital Signs Date Time Temp Pulse Resp B/P (MAP) Pulse Ox O2 Delivery O2 Flow Rate FiO2 10/19/18 18:40 98.1 70 18 127/78 98 Room Air Sp02 EP Interpretation: reviewed, normal General Appearance: well appearing, no apparent distress Head: normocephalic Eyes: bilateral eye other - Patient is blind ENT: normal pharynx, other - Lower lip has some edema, patient reports this is chronic Neck: supple Respiratory: chest non-tender, lungs clear, normal breath sounds Cardiovascular #1: regular rate, rhythm Gastrointestinal: non tender, soft Musculoskeletal: normal inspection Neurologic: alert, oriented x3, responsive Skin: other - The dressing that was applied by the paramedics was removed, patient's right upper arm reveals three sections of mónica in place there is no active bleeding, no obvious hematomas Lymphatic: no adenopathy Medical Decision Making ER Course The dressing on the right upper arm was removed later bilayer with extreme caution As they're continued not to be any signs of active bleeding All layers were finally removed revealing [place] in place without any oozing or active hemorrhage Surgicel was applied to the stapled sites 4 x 4's applied to the layer of this And Kerlix dressing on top Patient remained hemodynamically intact Observed on cardiac monitoring throughout her stay blood pressure and heart rate remained appropriate Last Vital Signs Date Time Temp Pulse Resp B/P (MAP) Pulse Ox O2 Delivery O2 Flow Rate FiO2 10/19/18 18:40 98.1 90 18 107/81 98 Room Air Referrals: Roderick Henning DO (PCP) Magdiel Kilgore DO Oct 19, 2018 19:26
[2018-10-19 22:15] VITALS: BP 141/86
== END 2018-10-19 22:15 | disposition home or self-care (01) ==
LOC: EDBD 18:38 → EMR 19:00
DX: T82.838A Hemorrhage due to vascular prosthetic devices, implants and grafts, initial encounter (principal); Y84.1 Kidney dialysis as the cause of abnormal reaction of the patient, or of later complication, without mention of misadventure at the time of the procedure; Y92.89 Other specified places as the place of occurrence of the external cause; E11.42 Type 2 diabetes mellitus with diabetic polyneuropathy; J45.909 Unspecified asthma, uncomplicated
CPT/HCPCS: 99284

== ENCOUNTER 2018-10-22 10:22 | Inpatient (IN) | payer MEDICARE, OTHER ==
[~2018-10-22] VITALS: Ht 165.1 cm; Wt 151.7 kg
[~2018-10-22 10:22] MED LIST changes: +CARVEDILOL3.125 MG ORAL; +GABAPENTIN400 MG ORAL; +LISINOPRIL5 MG ORAL
[2018-10-22 10:27] VITALS: BP 120/52
[2018-10-22] MEDS ORDERED: Albuterol ud Inhalation HHN ONE ×2 (10:45→12:30)
[2018-10-22 10:50] LABS: HEMATOCRIT 21.7 % (37.0-47.0); MEAN CORPUSCULAR VOLUME 78 FL (80-99); PLATELET COUNT 188 K/UL (150-450); RED BLOOD COUNT 2.77 M/UL (4.20-5.40); RED CELL DISTRIBUTION WIDTH 18.3 % (11.6-14.8); WHITE BLOOD COUNT 9.9 K/UL (4.8-10.8)
[2018-10-22 10:51] LABS: HEMOGLOBIN 6.5 G/DL (12.0-16.0)
[2018-10-22 11:00] LABS: APPEARANCE,URINE CLOUDY; BILIRUBIN, URINE NEGATIVE (NEGATIVE); COLOR,URINE YELLOW; GLUCOSE, URINE (UA) NEGATIVE (NEGATIVE); KETONES,URINE 1+ (NEGATIVE); LEUKOCYTE ESTERASE ,URINE 3+ (NEGATIVE); NITRITE,URINE NEGATIVE (NEGATIVE); PH,URINE 5 (4.5-8.0); PROTEIN,URINE 4+ (NEGATIVE); UROBILINOGEN,URINE NORMAL MG/DL (0.0-1.0)
[2018-10-22 11:01] LABS: INR 1.2 (0.9-1.1)
--- NOTE | 2018-10-22 11:02 | Emergency Room Report ---
History of Present Illness General Chief Complaint: Dyspnea/Respdistress Source: Patient, EMS Present Illness HPI Patient presents with shortness of breath. It started on Sunday. She had dialysis on Sunday and was during the evening after dialysis that she started feeling short of breath. She denies any chest pain The patient gets dialysis Tuesdays and Saturdays She has vasc access L chest. Edema, no calf pain. No rashes. Blind. No sore throat or cough. Still makes urine and states some dysuria. No NVD or abdominal pain. Some depression. Allergies: Coded Allergies: NO KNOWN ALLERGIES (Unverified Allergy, Unknown, 10/15/15) Patient History Past Medical History: see triage record Past Surgical History: PTCA Social History: Denies: smoking Social History Narrative snf Now: No Reviewed Nursing Documentation: PMH: Agreed; PSxH: Agreed Nursing Documentation-PMH Hx Hypertension: Yes - cardiac stents 2010 Hx Pacemaker: No Hx Asthma: Yes Hx COPD: Yes Hx Diabetes: Yes Hx Cancer: No Hx Gastrointestinal Problems: Yes Hx Dialysis: Yes - Sunday, , Sunday Hx Neurological Problems: No Hx Peripheral Neuropathy: Yes - secondary to DM Hx Tremors: Yes Hx Vertigo: Yes Hx Dizziness: Yes Hx Syncope: Yes Hx Headaches: Yes Hx Weakness: Yes Hx Fatigue: Yes Review of Systems All Other Systems: negative except mentioned in HPI Physical Exam Vital Signs Date Time Temp Pulse Resp B/P (MAP) Pulse Ox O2 Delivery O2 Flow Rate FiO2 10/22/18 10:13 98.4 62 20 120/52 97 Nasal Cannula Sp02 EP Interpretation: reviewed, normal General Appearance: no apparent distress, other - GCS 14 - eyes closed, Chronically Ill Head: normocephalic Eyes: bilateral eye other - exopthalmous ENT: moist mucus membranes Neck: supple Respiratory: lungs clear, decreased breath sounds Cardiovascular #1: normal peripheral pulses, regular rate, rhythm Cardiovascular #2: 2+ radial (R) Gastrointestinal: normal inspection, normal bowel sounds, non tender, no mass, non-distended Genitourinary: no CVA tenderness Musculoskeletal: back normal, gait/station normal, normal range of motion, no calf tenderness Neurologic: alert, motor strength/tone normal, DTRs symmetric, sensory intact, oriented - X2 Psychiatric: depressed affect Skin: normal inspection, warm/dry Medical Decision Making Diagnostic Impression: Primary Impression: Anemia Qualified Codes: D64.9 - Anemia, unspecified Additional Impressions: ESRD (end stage renal disease) on dialysis Hyperkalemia UTI (urinary tract infection) Qualified Codes: N39.0 - Urinary tract infection, site not specified ER Course Patient presents with dyspnea. DDX: CHF, PE, AMI, PNA amongst others. Evaluation with EKG, CXr and labs. Treatment with albuterol and cardiac monitoring. Will need dialysis at some point. EKG no injury. CXR cath L, no CHF. Labs with significant anemia and hyperkalemia (ESRD). Pyuria. Patient treated for high K. Rocephin given for UTI. Blood made ready for transfusion. Arrange for dialysis. Patient admitted telemetry. Labs Test 10/22/18 10:30 10/22/18 10:45 10/22/18 11:30 10/23/18 08:07 White Blood Count 9.9 K/UL (4.8-10.8) 8.5 K/UL (4.8-10.8) Red Blood Count 2.77 M/UL (4.20-5.40) 2.53 M/UL (4.20-5.40) Hemoglobin 6.5 G/DL (12.0-16.0) 5.8 G/DL (12.0-16.0) Hematocrit 21.7 % (37.0-47.0) 19.5 % (37.0-47.0) Mean Corpuscular Volume 78 FL (80-99) 77 FL (80-99) Mean Corpuscular Hemoglobin 23.6 PG (27.0-31.0) 23.1 PG (27.0-31.0) Mean Corpuscular Hemoglobin Concent 30.1 G/DL (32.0-36.0) 29.9 G/DL (32.0-36.0) Red Cell Distribution Width 18.3 % (11.6-14.8) 18.9 % (11.6-14.8) Platelet Count 188 K/UL (150-450) 198 K/UL (150-450) Mean Platelet Volume 6.9 FL (6.5-10.1) 6.7 FL (6.5-10.1) Neutrophils (%) (Auto) % (45.0-75.0) % (45.0-75.0) Lymphocytes (%) (Auto) % (20.0-45.0) % (20.0-45.0) Monocytes (%) (Auto) % (1.0-10.0) % (1.0-10.0) Eosinophils (%) (Auto) % (0.0-3.0) % (0.0-3.0) Basophils (%) (Auto) % (0.0-2.0) % (0.0-2.0) Differential Total Cells Counted 100 100 Neutrophils % (Manual) 72 % (45-75) 62 % (45-75) Lymphocytes % (Manual) 9 % (20-45) 16 % (20-45) Monocytes % (Manual) 6 % (1-10) 12 % (1-10) Eosinophils % (Manual) 12 % (0-3) 10 % (0-3) Basophils % (Manual) 1 % (0-2) 0 % (0-2) Band Neutrophils 0 % (0-8) 0 % (0-8) Nucleated Red Blood Cells 1 /100 WBC Platelet Estimate Adequate Adequate Platelet Morphology Normal Normal Hypochromasia 4+ Anisocytosis 2+ 1+ Microcytosis 1+ Prothrombin Time 12.3 SEC (9.30-11.50) 12.6 SEC (9.30-11.50) Prothromb Time International Ratio 1.2 (0.9-1.1) 1.2 (0.9-1.1) Activated Partial Thromboplast Time 30 SEC (23-33) 30 SEC (23-33) Sodium Level 132 MMOL/L (136-145) 134 MMOL/L (136-145) Potassium Level 6.2 MMOL/L (3.5-5.1) 5.6 MMOL/L (3.5-5.1) Chloride Level 95 MMOL/L (98-107) 96 MMOL/L (98-107) Carbon Dioxide Level 24 MMOL/L (21-32) 26 MMOL/L (21-32) Anion Gap 14 mmol/L (5-15) 12 mmol/L (5-15) Blood Urea Nitrogen 56 mg/dL (7-18) 65 mg/dL (7-18) Creatinine 9.4 MG/DL (0.55-1.30) 10.1 MG/DL (0.55-1.30) Estimat Glomerular Filtration Rate 5.1 mL/min (>60) 4.7 mL/min (>60) Glucose Level 182 MG/DL (74-106) 66 MG/DL (74-106) Lactic Acid Level 2.10 mmol/L (0.4-2.0) 2.00 mmol/L (0.66-2.22) Calcium Level 9.0 MG/DL (8.5-10.1) 8.9 MG/DL (8.5-10.1) Magnesium Level 3.1 MG/DL (1.8-2.4) Total Bilirubin 0.7 MG/DL (0.2-1.0) 0.5 MG/DL (0.2-1.0) Aspartate Amino Transf (AST/SGOT) 28 U/L (15-37) 23 U/L (15-37) Alanine Aminotransferase (ALT/SGPT) 14 U/L (12-78) 16 U/L (12-78) Alkaline Phosphatase 183 U/L (46-116) 158 U/L (46-116) Total Creatine Kinase 277 U/L (26-308) Troponin I 0.009 ng/mL (0.000-0.056) Pro-B-Type Natriuretic Peptide 40396 pg/mL (0-125) Total Protein 8.9 G/DL (6.4-8.2) 8.4 G/DL (6.4-8.2) Albumin 4.1 G/DL (3.4-5.0) 3.8 G/DL (3.4-5.0) Globulin 4.8 g/dL 4.6 g/dL Albumin/Globulin Ratio 0.9 (1.0-2.7) 0.8 (1.0-2.7) Urine Color Yellow Urine Appearance Cloudy Urine pH 5 (4.5-8.0) Urine Specific [place] 1.015 (1.005-1.035) Urine Protein 4+ (NEGATIVE) Urine Glucose (UA) Negative (NEGATIVE) Urine Ketones 1+ (NEGATIVE) Urine Blood 1+ (NEGATIVE) Urine Nitrite Negative (NEGATIVE) Urine Bilirubin Negative (NEGATIVE) Urine Urobilinogen Normal MG/DL (0.0-1.0) Urine Leukocyte Esterase 3+ (NEGATIVE) Urine RBC 5-10 /HPF (0 - 2) Urine WBC Tntc /HPF (0 - 2) Urine Squamous Epithelial Cells Many /LPF (NONE/OCC) Urine Amorphous Sediment Many /LPF (NONE) Urine Bacteria Few /HPF (NONE) Basophilic Stippling 1+ Ovalocytes 1+ Reticulocyte Count 3.8 % (0.0-2.0) Hemoglobin A1c 7.0 % (4.3-6.0) Iron Level 55 ug/dL (50-175) Total Iron Binding Capacity 197 ug/dL (250-450) Percent Iron Saturation 28 % (15-50) Unsaturated Iron Binding 142 ug/dL (112-346) Ferritin > 2000 NG/ML (8-388) Triglycerides Level 52 MG/DL (30-150) Cholesterol Level 79 MG/DL (< 200) LDL Cholesterol 38 mg/dL (<100) HDL Cholesterol 46 MG/DL (40-60) Cholesterol/HDL Ratio 1.7 (3.3-4.4) Vitamin B12 Level 1099 PG/ML (193-986) Folate 34.4 NG/ML (8.6-58.9) Thyroid Stimulating Hormone (TSH) 1.053 uiU/mL (0.358-3.740) Free Thyroxine 1.15 NG/DL (0.76-1.46) EKG Diagnostic Results Rate: bradycardiac - 46 Rhythm: other ST Segments: other - low voltage Rhythm Strip Diag. Results EP Interpretation: yes Rhythm: no PVC's, no ectopy, other - lianne Chest X-Ray Diagnostic Results Chest X-Ray Diagnostic Results : Chest X-Ray Ordered: Yes # of Views/Limited/Complete: 1 View Indication: Shortness of Breath EP Interpretation: Yes Interpretation: no consolidation, no effusion, no pneumothorax, other - cath L Impression: Other Electronically Signed by: Jimmy Rider MD Last Vital Signs Date Time Temp Pulse Resp B/P (MAP) Pulse Ox O2 Delivery O2 Flow Rate FiO2 10/22/18 10:27 98.4 20 120/52 97 Nasal Cannula 10/22/18 10:13 62 Status: improved Disposition: ADMITTED INPATIENT Condition: Serious Jimmy Rider MD Oct 22, 2018 11:02
--- NOTE | 2018-10-22 11:11 | Diagnostic Imaging Report ---
Indication: Shortness of breath Technique: One view of the chest Comparison: 12/06/2016 Findings: Body habitus limits evaluation. Interim placement of left jugular tunneled dialysis catheter. There is diffuse pulmonary congestion. Diffuse hazy opacity is probably an artifact of under exposure and overlying soft tissue. The heart remains enlarged Impression: Limited exam as described Cardiomegaly with pulmonary venous congestion
[2018-10-22 11:12] LABS: ALANINE AMINOTRANSFERASE 14 U/L (12-78); ALBUMIN 4.1 G/DL (3.4-5.0); ALBUMIN/GLOBULIN RATIO 0.9 (1.0-2.7); ALKALINE PHOSPHATASE 183 U/L (46-116); ANION GAP 14 mmol/L (5-15); ASPARTATE AMINO TRANSFERASE 28 U/L (15-37); BILIRUBIN,TOTAL 0.7 MG/DL (0.2-1.0); BLOOD UREA NITROGEN 56 mg/dL (7-18); CARBON DIOXIDE 24 MMOL/L (21-32); CHLORIDE 95 MMOL/L (98-107); CREATINE KINASE 277 U/L (26-308); CREATININE 9.4 MG/DL (0.55-1.30); SODIUM 132 MMOL/L (136-145)
[2018-10-22 11:14] LABS: POTASSIUM 6.2 MMOL/L (3.5-5.1)
[2018-10-22] MEDS ORDERED: cefTRIAXone 1 GM in NS 55 ML IVPB ONE (12:00)
[2018-10-22] MEDS ORDERED: Insulin Human Regular 100units/ml 3ml IV ONE (12:30)
[2018-10-22] MEDS ORDERED: Calcium Gluconate 1gm/10ml vial IVP ONE (12:30)
[2018-10-22] MEDS ORDERED: Sodium Bicarbonate 50ml Carp IV ONE (12:30)
[2018-10-22] MEDS ORDERED: Sodium Polystyrene Sulfonate 15gm Powder ORAL ONE (12:30)
[2018-10-22] MEDS ORDERED: Zolpidem 5mg tab ORAL PRN (13:30)
[2018-10-22] MEDS ORDERED: Albuterol/Ipratropium 3ml neb HHN PRN (13:30)
--- NOTE | 2018-10-22 13:41 | Consultation ---
History of Present Illness General Date patient seen: Oct 22, 2018 Chief Complaint: Dyspnea/Respdistress Present Illness HPI 60 year-old female with a history of ESRD, Diabetes, HTN, morbid obesity presented to ER with complaints of shortness of breath but no fever. Her blood sugar was slightly elevated. Her urine was cloudy, with TNTC wbc. She was severely anemic. She is admitted for further evaluation and management. she received insulin respiratory treatment and IV abx in ER Allergies: Coded Allergies: NO KNOWN ALLERGIES (Unverified Allergy, Unknown, 10/15/15) Medication History Scheduled Acetaminophen* (Acetaminophen 325MG Tablet*), 650 MG ORAL Q6H, (Reported) Allopurinol* (Zyloprim*), 100 MG ORAL DAILY, (Reported) Amlodipine Besylate (Norvasc), 2.5 MG ORAL DAILY, (Reported) Amlodipine Besylate* (Amlodipine Besylate*), 10 MG ORAL DAILY, (Reported) Ascorbic Acid* (Ascorbic Acid*), 500 MG ORAL DAILY, (Reported) Aspirin Ec* (Aspirin Ec*), 81 MG ORAL DAILY, (Reported) Atorvastatin Calcium* (Atorvastatin Calcium*), 20 MG ORAL BEDTIME, (Reported) Carvedilol (Coreg), 3.125 MG ORAL EVERY 12 HOURS, (Reported) Carvedilol* (Carvedilol*), 3.125 MG ORAL EVERY 12 HOURS, (Reported) Docusate Sodium (Dok), 100 MG PO BID, (Reported) Ferrous Sulfate* (Ferrous Sulfate*), 325 MG ORAL DAILY, (Reported) Furosemide* (Lasix*), 20 MG ORAL DAILY, (Reported) Gabapentin* (Gabapentin*), 400 MG ORAL TWICE A DAY, (Reported) Glimepiride* (Amaryl*), 4 MG ORAL BEFORE BREAKFAST Heparin Sod (Porcine) (Heparin Sodium*), 5,000 UNITS SUBQ EVERY 12 HOURS, ( Reported) Hydralazine HCl (Hydralazine HCl), 10 MG ORAL EVERY 6 HOURS, (Reported) Hydralazine Hcl* (Hydralazine Hcl*), 50 MG ORAL EVERY 8 HOURS, (Reported) Hydrocodone Bit/Acetaminophen 5-325* ([place] 5-325*), 1 TAB ORAL Q8HR, (Reported) Insulin Aspart (Novolog Flexpen), 1 UNITS SUBQ AC+HS, (Reported) Insulin Detemir (Levemir Flexpen), 10 UNITS SUBQ BEDTIME Isosorbide Dinitrate (Isosorbide Dinitrate*), 30 MG ORAL BID, (Reported) Lifitegrast (Xiidra), 1 EACH OP BID, (Reported) Lisinopril (Lisinopril*), 5 MG ORAL DAILY, (Reported) Losartan Potassium* (Losartan Potassium*), 50 MG ORAL DAILY, (Reported) Mupirocin Nasal (Bactroban Nasal), 1 APPLIC NASAL TID, (Reported) Nitrofurantoin Monohyd/M-Cryst* (Macrobid 100 Mg*), 100 MG ORAL EVERY 12 HOURS Pantoprazole* (Pantoprazole*), 40 MG ORAL DAILY, (Reported) Ranitidine Hcl* (Zantac*), 150 MG ORAL DAILY, (Reported) Sevelamer Carbonate (Renvela), 800 MG ORAL THREE TIMES A DAY, (Reported) Scheduled PRN Acetaminophen (Tylenol), 650 MG ORAL Q4HR PRN for Mild Pain/Temp > 100.5, ( Reported) Al Hydroxide/mg Hydroxide (Mag-Al Plus Suspension), 30 ML PO Q6HR PRN for indigestion, (Reported) Albuterol Sulfate* (Albuterol Sulfate Hhn*), 3 ML INH Q6H PRN for Shortness of Breath, (Reported) Clonidine Hcl* (Catapres*), 0.1 MG ORAL EVERY 4 HOURS PRN for For High Blood Pressure, (Reported) Diphenhydramine Hcl* (Diphenhydramine Hcl*), 25 MG ORAL Q6H PRN for Itching, ( Reported) Insulin Regular, Human* (Novolin R*), 0 SUBQ AC+HS PRN for Sliding Scale, ( Reported) Nitroglycerin (Nitrostat), 0.4 MG SL Q5M X3 DOSES PRN for CHEST PAIN, (Reported) Ondansetron (Zofran), 4 MG ORAL Q6H PRN for Nausea & Vomiting, (Reported) Polyethylene Glycol 3350* (Miralax*), 17 GM ORAL DAILY PRN for Constipation, ( Reported) Temazepam* (Restoril*), 15 MG ORAL BEDTIME PRN for Insomnia, (Reported) Tramadol Hcl* (Ultram*), 50 MG ORAL Q6H PRN for For Pain, (Reported) Zolpidem Tartrate* (Zolpidem Tartrate*), 5 MG ORAL BEDTIME PRN for Insomnia, ( Reported) Miscellaneous Medications Calcium Acetate (Calcium Acetate), 667 MG PO, (Reported) Folic Acid/Vitamin B Comp W-C (Dialyvite 800 Tablet), 0.8 MG PO, (Reported) Insulin Human Lispro (Humalog), 0 SUBQ, (Reported) Lactulose (Lactulose*), 15 ML ORAL, (Reported) Patient History Healthcare decision maker Resuscitation status Advanced Directive on File Past Medical/Surgical History Past Medical/Surgical History: (1) End stage renal disease on dialysis (2) Blindness of both eyes (3) Morbid obesity (4) History of colonic polyps (5) Hypertension (6) Hyperphosphatemia (7) Lumbar radiculopathy Review of Systems All Other Systems: negative except mentioned in HPI Physical Exam General Appearance: WD/WN Lines, tubes and drains: peripheral HEENT: normocephalic, atraumatic Neck: non-tender, normal alignment Respiratory/Chest: rhonchi - left, rhonchi - right Cardiovascular/Chest: normal peripheral pulses Abdomen: normal bowel sounds Genitourinary/Rectal: normal genital exam, normal rectal exam Extremities: normal range of motion, non-tender Skin Exam: normal pigmentation Neurologic: e learning developer II-XII grossly normal Last 24 Hour Vital Signs Date Time Temp Pulse Resp B/P (MAP) Pulse Ox O2 Delivery O2 Flow Rate FiO2 10/22/18 12:42 21 10/22/18 12:42 44 14 100 Room Air 21 10/22/18 11:06 44 16 100 Room Air 21 10/22/18 10:58 21 10/22/18 10:58 46 17 100 Room Air 21 10/22/18 10:58 46 17 Room Air 21 10/22/18 10:27 62 20 Room Air 10/22/18 10:27 98.4 20 120/52 97 Nasal Cannula 10/22/18 10:13 98.4 62 20 120/52 97 Nasal Cannula Laboratory Tests Test 10/22/18 10:30 10/22/18 10:45 10/22/18 11:30 White Blood Count 9.9 K/UL (4.8-10.8) Red Blood Count 2.77 M/UL (4.20-5.40) L Hemoglobin 6.5 G/DL (12.0-16.0) *L Hematocrit 21.7 % (37.0-47.0) L Mean Corpuscular Volume 78 FL (80-99) L Mean Corpuscular Hemoglobin 23.6 PG (27.0-31.0) L Mean Corpuscular Hemoglobin Concent 30.1 G/DL (32.0-36.0) L Red Cell Distribution Width 18.3 % (11.6-14.8) H Platelet Count 188 K/UL (150-450) Mean Platelet Volume 6.9 FL (6.5-10.1) Neutrophils (%) (Auto) % (45.0-75.0) Lymphocytes (%) (Auto) % (20.0-45.0) Monocytes (%) (Auto) % (1.0-10.0) Eosinophils (%) (Auto) % (0.0-3.0) Basophils (%) (Auto) % (0.0-2.0) Differential Total Cells Counted 100 Neutrophils % (Manual) 72 % (45-75) Lymphocytes % (Manual) 9 % (20-45) L Monocytes % (Manual) 6 % (1-10) Eosinophils % (Manual) 12 % (0-3) H Basophils % (Manual) 1 % (0-2) Band Neutrophils 0 % (0-8) Nucleated Red Blood Cells 1 /100 WBC Platelet Estimate Adequate Platelet Morphology Normal Hypochromasia 4+ Anisocytosis 2+ Microcytosis 1+ Prothrombin Time 12.3 SEC (9.30-11.50) H Prothromb Time International Ratio 1.2 (0.9-1.1) H Activated Partial Thromboplast Time 30 SEC (23-33) Sodium Level 132 MMOL/L (136-145) L Potassium Level 6.2 MMOL/L (3.5-5.1) *H Chloride Level 95 MMOL/L (98-107) L Carbon Dioxide Level 24 MMOL/L (21-32) Anion Gap 14 mmol/L (5-15) Blood Urea Nitrogen 56 mg/dL (7-18) H Creatinine 9.4 MG/DL (0.55-1.30) H Estimat Glomerular Filtration Rate 5.1 mL/min (>60) Glucose Level 182 MG/DL (74-106) H Lactic Acid Level 2.10 mmol/L (0.4-2.0) H 2.00 mmol/L (0.66-2.22) Calcium Level 9.0 MG/DL (8.5-10.1) Magnesium Level 3.1 MG/DL (1.8-2.4) H Total Bilirubin 0.7 MG/DL (0.2-1.0) Aspartate Amino Transf (AST/SGOT) 28 U/L (15-37) Alanine Aminotransferase (ALT/SGPT) 14 U/L (12-78) Alkaline Phosphatase 183 U/L (46-116) H Total Creatine Kinase 277 U/L (26-308) Troponin I 0.009 ng/mL (0.000-0.056) Pro-B-Type Natriuretic Peptide 59158 pg/mL (0-125) H Total Protein 8.9 G/DL (6.4-8.2) H Albumin 4.1 G/DL (3.4-5.0) Globulin 4.8 g/dL Albumin/Globulin Ratio 0.9 (1.0-2.7) L Urine Color Yellow Urine Appearance Cloudy Urine pH 5 (4.5-8.0) Urine Specific Frederic 1.015 (1.005-1.035) Urine Protein 4+ (NEGATIVE) H Urine Glucose (UA) Negative (NEGATIVE) Urine Ketones 1+ (NEGATIVE) H Urine Blood 1+ (NEGATIVE) H Urine Nitrite Negative (NEGATIVE) Urine Bilirubin Negative (NEGATIVE) Urine Urobilinogen Normal MG/DL (0.0-1.0) Urine Leukocyte Esterase 3+ (NEGATIVE) H Urine RBC 5-10 /HPF (0 - 2) H Urine WBC Tntc /HPF (0 - 2) H Urine Squamous Epithelial Cells Many /LPF (NONE/OCC) H Urine Amorphous Sediment Many /LPF (NONE) H Urine Bacteria Few /HPF (NONE) Microbiology Date/Time Source Procedure Growth Status 10/22/18 10:30 Nose Influenza Types A,B Antigen (ENRIQUETA) - Final Complete Height (Feet): 5 Height (Inches): 6.00 Weight (Pounds): 265 Medications Current Medications Medications (Trade) Dose Ordered Sig/Josi Route PRN Reason Start Time Stop Time Status Last Admin Dose Admin Acetaminophen (Tylenol) 650 mg Q4H PRN ORAL fever 10/22/18 13:28 11/21/18 13:27 Albuterol/ Ipratropium (Albuterol/ Ipratropium) 3 ml Q6HRT PRN HHN dyspnea 10/22/18 13:30 10/27/18 13:29 UNV Allopurinol (Zyloprim) 100 mg DAILY ORAL 10/23/18 09:00 11/22/18 08:59 Atorvastatin Calcium (Lipitor) 20 mg BEDTIME ORAL 10/22/18 21:00 11/21/18 20:59 Calcium Acetate (Phoslo) 667 mg DAILY ORAL 10/23/18 09:00 11/22/18 08:59 Clonidine HCl (Catapres Tab) 0.1 mg Q4H PRN ORAL For High Blood Pressure 10/22/18 13:30 11/21/18 13:29 UNV Dextrose (Dextrose 50%) STAT PRN IV Hypoglycemia 10/22/18 13:30 11/21/18 13:29 UNV Dextrose (Dextrose 50%) STAT PRN IV Hypoglycemia 10/22/18 13:30 11/21/18 13:29 UNV Heparin Sodium (Porcine) (Heparin 5000 units/ml) 5,000 units EVERY 12 HOURS SUBQ 10/22/18 21:00 11/21/18 20:59 Insulin Aspart (NovoLOG) BEFORE MEALS AND HS SUBQ 10/22/18 16:30 11/21/18 16:29 UNV Morphine Sulfate (Morphine Sulfate) 1 mg Q4H PRN IVP For Pain 10/22/18 13:30 10/29/18 13:29 Ondansetron HCl (Zofran) 4 mg Q6H PRN IVP Nausea & Vomiting 10/22/18 13:30 11/21/18 13:29 UNV Sevelamer Carbonate (Renvela) 800 mg THREE TIMES A DAY ORAL 10/22/18 18:00 11/21/18 17:59 Zolpidem Tartrate (Ambien) 5 mg HSPRN PRN ORAL Insomnia 10/22/18 13:30 10/29/18 13:29 UNV Assessment/Plan Problem List: (1) Acute respiratory failure ICD Codes: J96.00 - Acute respiratory failure, unspecified whether with hypoxia or hypercapnia SNOMED: 17055403 (2) End stage renal disease on dialysis ICD Codes: N18.6 - End stage renal failure on dialysis; Z99.2 - Dependence on renal dialysis SNOMED: 372063306 (3) Uncontrolled diabetes mellitus ICD Codes: E11.9 - Type 2 diabetes mellitus without complications SNOMED: 668282386 (4) Hypertension ICD Codes: I10 - Essential (primary) hypertension SNOMED: 32735364 (5) UTI (urinary tract infection) ICD Codes: N39.0 - Urinary tract infection, site not specified SNOMED: 63494352 (6) Morbid obesity ICD Codes: E66.01 - Morbid (severe) obesity due to excess calories SNOMED: 616755428, 51806391258386 Assessment/Plan respiratory treatment titrate fio2 to sat of 92% check sputum check urine cultures iv abx as per ID sliding scale insulin coverage. Meghana Murillo MD Oct 22, 2018 13:41
--- NOTE | 2018-10-22 14:36 | GI Initial Consult Note ---
History of Present Illness General Date patient seen: Oct 22, 2018 Time patient seen: 14:36 Reason for Hospitalization: Dyspnea/Respdistress Referring physician: BRIE LAN Reason for Consultation: RECTAL BLEED Present Illness HPI Patient presents with shortness of breath. It started on Sunday. She had dialysis on Sunday and was during the evening after dialysis that she started feeling short of breath. She denies any chest pain The patient gets dialysis Tuesdays and Saturdays GI consulted for reported rectal bleed. Patient was seen in ED, awake A&Ox4 NAD with no active s/sx of N/V. At this time, patient denied any rectal bleeding. She denies any abdominal pain, N/V/D or constipation. Had complaint of BLE pain she said was due to her neuropathy. The patient had a recent colonoscopy performed at [facility] showed mild redness and edema of the rectum, otherwise mainly unremarkable. No significant lesions or masses were noted at this time. History of morbid obesity, AV fistula, CHF, Asthma with bronchospasm, ESRD, DM, severe anemia most likely iron deficiency. The patient is a Yazidi and refuses blood transfusions. Home Meds Active Scripts Nitrofurantoin Monohyd/M-Cryst* (MACROBID 100 MG*) 100 Mg Capsule, 100 MG ORAL EVERY 12 HOURS for 7 Days, #13 CAP Prov:KALANI NELSON M.D. 05/08/17 Glimepiride* (AMARYL*) 4 Mg Tablet, 4 MG ORAL BEFORE BREAKFAST, #1 TAB Prov:Cece Scott BAGGER MEAT 12/10/15 Insulin Detemir (LEVEMIR FLEXPEN) 100 Units/Ml Pen, 10 UNITS SUBQ BEDTIME, #1 EA Prov:Chastity Velasco BAGGER MEAT 11/18/14 Reported Medications Gabapentin* (GABAPENTIN*) 400 Mg Capsule, 400 MG ORAL TWICE A DAY, CAP 0 Refills 10/19/18 Carvedilol* (CARVEDILOL*) 3.125 Mg Tablet, 3.125 MG ORAL EVERY 12 HOURS, TAB 10/19/18 Lisinopril (LISINOPRIL*) 5 Mg Tablet, 5 MG ORAL DAILY, TAB 10/19/18 Amlodipine Besylate (Norvasc) 2.5 Mg Tablet, 2.5 MG ORAL DAILY, TAB 10/08/17 Carvedilol (Coreg) 3.125 Mg Tablet, 3.125 MG ORAL EVERY 12 HOURS, TAB 10/08/17 Zolpidem Tartrate* (ZOLPIDEM TARTRATE*) 5 Mg Tablet, 5 MG ORAL BEDTIME PRN for Insomnia, TAB 0 Refills 04/01/17 Insulin Human Lispro (Humalog) 100 Unit/1 Ml Vial, 0 SUBQ, #1 UNIT 0 Refills 03/29/17 Lifitegrast (Xiidra) 1 Each Droperette, 1 EACH OP BID 03/29/17 Hydralazine Hcl* (HYDRALAZINE HCL*) 50 Mg Tablet, 50 MG ORAL EVERY 8 HOURS, TAB 03/29/17 Ranitidine Hcl* (ZANTAC*) 150 Mg Tablet, 150 MG ORAL DAILY, #30 TAB 0 Refills 03/29/17 Losartan Potassium* (LOSARTAN POTASSIUM*) 50 Mg Tablet, 50 MG ORAL DAILY, TAB 09/26/16 Ascorbic Acid* (ASCORBIC ACID*) 500 Mg Tablet, 500 MG ORAL DAILY, TAB 09/26/16 Folic Acid/Vitamin B Comp W-C (DIALYVITE 800 TABLET) 0.8 Mg Tablet, 0.8 MG PO, TAB 09/26/16 Isosorbide Dinitrate (ISOSORBIDE DINITRATE*) 5 Mg Tablet, 30 MG ORAL BID, #30 TAB 0 Refills 09/26/16 Furosemide* (LASIX*) 20 Mg Tablet, 20 MG ORAL DAILY, TAB 09/26/16 Calcium Acetate (CALCIUM ACETATE) 667 Mg Capsule, 667 MG PO, CAP 09/26/16 Ferrous Sulfate* (FERROUS SULFATE*) 325 Mg Tablet, 325 MG ORAL DAILY, #30 TAB 0 Refills 09/26/16 Mupirocin Nasal (BACTROBAN NASAL) 1 Gm Oint...g., 1 APPLIC NASAL TID for 7 Days , GM Elimination of MRSA colonization: Approximately one-half of the ointment from the single-use tube should be applied into one nostril and the other half into the other nostril twice daily for 5 days 08/15/16 Insulin Aspart (Novolog Flexpen) 100 Unit/1 Ml Insuln.pen, 1 UNITS SUBQ AC+HS 08/15/16 Temazepam* (RESTORIL*) 15 Mg Capsule, 15 MG ORAL BEDTIME PRN for Insomnia, CAP 08/15/16 Sevelamer Carbonate (Renvela) 800 Mg Tablet, 800 MG ORAL THREE TIMES A DAY, TAB 08/15/16 Polyethylene Glycol 3350* (MIRALAX*) 17 Gm Powd.pack, 17 GM ORAL DAILY PRN for Constipation, PACKET 08/15/16 Nitroglycerin (NITROSTAT) 0.4 Mg Tab.subl, 0.4 MG SL Q5M X3 DOSES PRN for CHEST PAIN, #25 TAB 0 Refills 08/15/16 Hydrocodone Bit/Acetaminophen 5-325* (NORCO 5-325*) 1 Each Tablet, 1 TAB ORAL Q8HR, TAB 0 Refills 08/15/16 Hydralazine HCl (Hydralazine HCl) 10 Mg Tablet, 10 MG ORAL EVERY 6 HOURS, TAB 08/15/16 Heparin Sod (Porcine) (HEPARIN SODIUM*) 5 000/1 Ml Vial, 5000 UNITS SUBQ EVERY 12 HOURS, VIAL 08/15/16 Diphenhydramine Hcl* (DIPHENHYDRAMINE HCL*) 25 Mg Capsule, 25 MG ORAL Q6H PRN for Itching, #30 CAP 0 Refills 08/15/16 Al Hydroxide/mg Hydroxide (Mag-Al Plus Suspension) 30 Ml Oral.susp, 30 ML PO Q6HR PRN for indigestion, ML 08/15/16 Acetaminophen (Tylenol) 325 Mg Tablet, 650 MG ORAL Q4HR PRN for Mild Pain/Temp > 100.5, #30 TAB 0 Refills 08/15/16 Clonidine Hcl* (CATAPRES*) 0.1 Mg Tablet, 0.1 MG ORAL EVERY 4 HOURS PRN for For High Blood Pressure, TAB 06/01/16 Acetaminophen* (ACETAMINOPHEN 325MG TABLET*) 325 Mg Tablet, 650 MG ORAL Q6H, TAB 10/15/15 Albuterol Sulfate* (ALBUTEROL SULFATE HHN*) 2.5 Mg/3 Ml Vial.neb, 3 ML INH Q6H PRN for Shortness of Breath, #30 EA 0 Refills 10/15/15 Lactulose (LACTULOSE*) 20 Gm/30 Ml Solution, 15 ML ORAL, ML 0 Refills 10/15/15 Pantoprazole* (PANTOPRAZOLE*) 40 Mg Tablet.dr, 40 MG ORAL DAILY, TAB 10/15/15 Ondansetron (Zofran) 4 Mg Tab, 4 MG ORAL Q6H PRN for Nausea & Vomiting, TAB 10/15/15 Allopurinol* (ZYLOPRIM*) 100 Mg Tablet, 100 MG ORAL DAILY, TAB 10/15/15 Tramadol Hcl* (ULTRAM*) 50 Mg Tablet, 50 MG ORAL Q6H PRN for For Pain, #30 TAB 0 Refills 10/15/15 Insulin Regular, Human* (NOVOLIN R*) 100 Unit/1 Ml Vial, 0 SUBQ AC+HS PRN for Sliding Scale, UNITS 06/27/14 Aspirin Ec* (ASPIRIN EC*) 81 Mg Tablet.dr, 81 MG ORAL DAILY, TAB 06/27/14 Docusate Sodium (DOK) 100 Mg Capsule, 100 MG PO BID, CAP 06/27/14 Amlodipine Besylate* (AMLODIPINE BESYLATE*) 10 Mg Tablet, 10 MG ORAL DAILY, TAB 06/27/14 Atorvastatin Calcium* (ATORVASTATIN CALCIUM*) 20 Mg Tablet, 20 MG ORAL BEDTIME, TAB 06/27/14 Med list reviewed/reconciled: Yes Allergies: Coded Allergies: NO KNOWN ALLERGIES (Unverified Allergy, Unknown, 10/15/15) Patient History History Provided By: Patient, Medical Record PMH Narrative See HPI. Hx Hypertension: Yes - cardiac stents 2010 Hx Pacemaker: No Hx Asthma: Yes Hx COPD: Yes Hx Diabetes: Yes Hx Cancer: No Hx Gastrointestinal Problems: Yes Hx Dialysis: Yes - Sunday, , Sunday Hx Neurological Problems: No Hx Peripheral Neuropathy: Yes - secondary to DM Hx Tremors: Yes Hx Vertigo: Yes Hx Dizziness: Yes Hx Syncope: Yes Hx Headaches: Yes Hx Weakness: Yes Hx Fatigue: Yes Past Surgical History: none Pertinent Family History: none Social History: Denies: smoking, alcohol use, drug use, other Review of Systems All Other Systems: negative except mentioned in HPI Physical Exam Vital Signs Date Time Temp Pulse Resp B/P (MAP) Pulse Ox O2 Delivery O2 Flow Rate FiO2 10/22/18 10:13 98.4 62 20 120/52 97 Nasal Cannula 10/22/18 10:58 21 Sp02 EP Interpretation: reviewed, normal Labs Laboratory Tests Test 10/22/18 10:30 10/22/18 10:45 10/22/18 11:30 White Blood Count 9.9 K/UL (4.8-10.8) Red Blood Count 2.77 M/UL (4.20-5.40) L Hemoglobin 6.5 G/DL (12.0-16.0) *L Hematocrit 21.7 % (37.0-47.0) L Mean Corpuscular Volume 78 FL (80-99) L Mean Corpuscular Hemoglobin 23.6 PG (27.0-31.0) L Mean Corpuscular Hemoglobin Concent 30.1 G/DL (32.0-36.0) L Red Cell Distribution Width 18.3 % (11.6-14.8) H Platelet Count 188 K/UL (150-450) Mean Platelet Volume 6.9 FL (6.5-10.1) Neutrophils (%) (Auto) % (45.0-75.0) Lymphocytes (%) (Auto) % (20.0-45.0) Monocytes (%) (Auto) % (1.0-10.0) Eosinophils (%) (Auto) % (0.0-3.0) Basophils (%) (Auto) % (0.0-2.0) Differential Total Cells Counted 100 Neutrophils % (Manual) 72 % (45-75) Lymphocytes % (Manual) 9 % (20-45) L Monocytes % (Manual) 6 % (1-10) Eosinophils % (Manual) 12 % (0-3) H Basophils % (Manual) 1 % (0-2) Band Neutrophils 0 % (0-8) Nucleated Red Blood Cells 1 /100 WBC Platelet Estimate Adequate Platelet Morphology Normal Hypochromasia 4+ Anisocytosis 2+ Microcytosis 1+ Prothrombin Time 12.3 SEC (9.30-11.50) H Prothromb Time International Ratio 1.2 (0.9-1.1) H Activated Partial Thromboplast Time 30 SEC (23-33) Sodium Level 132 MMOL/L (136-145) L Potassium Level 6.2 MMOL/L (3.5-5.1) *H Chloride Level 95 MMOL/L (98-107) L Carbon Dioxide Level 24 MMOL/L (21-32) Anion Gap 14 mmol/L (5-15) Blood Urea Nitrogen 56 mg/dL (7-18) H Creatinine 9.4 MG/DL (0.55-1.30) H Estimat Glomerular Filtration Rate 5.1 mL/min (>60) Glucose Level 182 MG/DL (74-106) H Lactic Acid Level 2.10 mmol/L (0.4-2.0) H 2.00 mmol/L (0.66-2.22) Calcium Level 9.0 MG/DL (8.5-10.1) Magnesium Level 3.1 MG/DL (1.8-2.4) H Total Bilirubin 0.7 MG/DL (0.2-1.0) Aspartate Amino Transf (AST/SGOT) 28 U/L (15-37) Alanine Aminotransferase (ALT/SGPT) 14 U/L (12-78) Alkaline Phosphatase 183 U/L (46-116) H Total Creatine Kinase 277 U/L (26-308) Troponin I 0.009 ng/mL (0.000-0.056) Pro-B-Type Natriuretic Peptide 52359 pg/mL (0-125) H Total Protein 8.9 G/DL (6.4-8.2) H Albumin 4.1 G/DL (3.4-5.0) Globulin 4.8 g/dL Albumin/Globulin Ratio 0.9 (1.0-2.7) L Urine Color Yellow Urine Appearance Cloudy Urine pH 5 (4.5-8.0) Urine Specific Rawlings 1.015 (1.005-1.035) Urine Protein 4+ (NEGATIVE) H Urine Glucose (UA) Negative (NEGATIVE) Urine Ketones 1+ (NEGATIVE) H Urine Blood 1+ (NEGATIVE) H Urine Nitrite Negative (NEGATIVE) Urine Bilirubin Negative (NEGATIVE) Urine Urobilinogen Normal MG/DL (0.0-1.0) Urine Leukocyte Esterase 3+ (NEGATIVE) H Urine RBC 5-10 /HPF (0 - 2) H Urine WBC Tntc /HPF (0 - 2) H Urine Squamous Epithelial Cells Many /LPF (NONE/OCC) H Urine Amorphous Sediment Many /LPF (NONE) H Urine Bacteria Few /HPF (NONE) General Appearance: well appearing, no apparent distress, alert, obese Head: normocephalic EENT: PERRL/EOMI, normal ENT inspection Neck: supple Respiratory: normal breath sounds, no respiratory distress Cardiovascular: normal rate Gastrointestinal: normal inspection, non tender, soft, normal bowel sounds, non -distended Rectal: deferred Genitourinary: no CVA tenderness Musculoskeletal: normal inspection, back normal Neurologic: normal inspection, alert, oriented x3, responsive Psychiatric: normal inspection, judgement/insight normal, memory normal Skin: normal inspection, normal color, no rash, warm/dry, palpation normal, well hydrated Lymphatic: normal inspection, no adenopathy Current Medications Current Medications Medications (Trade) Dose Ordered Sig/Josi Route PRN Reason Start Time Stop Time Status Last Admin Dose Admin Acetaminophen (Tylenol) 650 mg Q4H PRN ORAL fever 10/22/18 13:28 11/21/18 13:27 Albuterol/ Ipratropium (Albuterol/ Ipratropium) 3 ml Q6H PRN HHN dyspnea 10/22/18 13:30 10/27/18 13:29 Allopurinol (Zyloprim) 100 mg DAILY ORAL 10/23/18 09:00 11/22/18 08:59 Atorvastatin Calcium (Lipitor) 20 mg BEDTIME ORAL 10/22/18 21:00 11/21/18 20:59 Calcium Acetate (Phoslo) 667 mg DAILY ORAL 10/23/18 09:00 11/22/18 08:59 Clonidine HCl (Catapres Tab) 0.1 mg Q4H PRN ORAL For High Blood Pressure 10/22/18 13:30 11/21/18 13:29 Dextrose (Dextrose 50%) 25 ml Q30M PRN IV Hypoglycemia 10/22/18 13:45 11/21/18 13:30 Dextrose (Dextrose 50%) 50 ml Q30M PRN IV hypoglycemia 10/22/18 13:45 11/21/18 13:44 Heparin Sodium (Porcine) (Heparin 5000 units/ml) 5,000 units EVERY 12 HOURS SUBQ 10/22/18 21:00 11/21/18 20:59 Insulin Aspart (NovoLOG) BEFORE MEALS AND HS SUBQ 10/22/18 16:30 11/21/18 16:29 Morphine Sulfate (Morphine Sulfate) 1 mg Q4H PRN IVP For Pain 10/22/18 13:30 10/29/18 13:29 Ondansetron HCl (Zofran) 4 mg Q6H PRN IVP Nausea & Vomiting 10/22/18 13:30 11/21/18 13:29 Sevelamer Carbonate (Renvela) 800 mg THREE TIMES A DAY ORAL 10/22/18 18:00 11/21/18 17:59 Zolpidem Tartrate (Ambien) 5 mg HSPRN PRN ORAL Insomnia 10/22/18 13:30 10/29/18 13:29 GI: Plan Problems: (1) Anemia (2) Rectal pain (3) Morbid obesity (4) Uncontrolled diabetes mellitus (5) Iron deficiency Plan Hx of recent colonoscopy at [facility] which was unremarkable EGD scheduled tomorrow given severe anemia. - NPO @ MI. - hold all blood thinners tonight. ok to advance diet as tolerated anemia work up OB stool r/o GI bleed monitor H&H, prn transfusions bowel regime ppi fu labs outpatient capsule given suspected iron deficiency anemia Discussed with Dr. Garcia. Thank you for this patient referral, we will follow. The patient was seen and examined at bedside and all new and available data was reviewed in the patients chart. I agree with the above findings, impression and plan. (Patient seen earlier today. Signature stamp does not reflect patient encounter time.). - MD Veronica Mc[facility]ultyTem[facility] Oct 22, 2018 14:35
--- NOTE | 2018-10-22 15:56 | Cardiac Electrophysiology PN ---
Subjective Subjective Cardiology consult dictated. Recently DCed from [facility] 1. Congestive heart failure due to hypertensive heart disease and diastolic dysfunction. Echocardiogram showed EF 55%. Continue dialysis. 2. Hypertensive heart disease. Continue Norvasc 10 mg daily, losartan 50 mg daily and HD. Also on p.r.n. hydralazine and p.r.n.clonidine. 3. End-stage renal disease, on hemodialysis. 4. Diabetes, on insulin. 5. Hyperlipidemia, on Lipitor. 6. Hyperkalemia, HD federico. JAE RN and Dr Davalos Objective Last 24 Hour Vital Signs Date Time Temp Pulse Resp B/P (MAP) Pulse Ox O2 Delivery O2 Flow Rate FiO2 10/22/18 15:00 98.8 88 20 101/50 100 Nasal Cannula 2.0 10/22/18 13:30 56 14 100 Room Air 21 10/22/18 12:42 21 10/22/18 12:42 44 14 100 Room Air 21 10/22/18 11:06 44 16 100 Room Air 21 10/22/18 10:58 21 10/22/18 10:58 46 17 100 Room Air 21 10/22/18 10:58 46 17 Room Air 21 10/22/18 10:27 62 20 Room Air 10/22/18 10:27 98.4 20 120/52 97 Nasal Cannula 10/22/18 10:13 98.4 62 20 120/52 97 Nasal Cannula Laboratory Tests Test 10/22/18 10:30 10/22/18 10:45 10/22/18 11:30 White Blood Count 9.9 K/UL (4.8-10.8) Red Blood Count 2.77 M/UL (4.20-5.40) L Hemoglobin 6.5 G/DL (12.0-16.0) *L Hematocrit 21.7 % (37.0-47.0) L Mean Corpuscular Volume 78 FL (80-99) L Mean Corpuscular Hemoglobin 23.6 PG (27.0-31.0) L Mean Corpuscular Hemoglobin Concent 30.1 G/DL (32.0-36.0) L Red Cell Distribution Width 18.3 % (11.6-14.8) H Platelet Count 188 K/UL (150-450) Mean Platelet Volume 6.9 FL (6.5-10.1) Neutrophils (%) (Auto) % (45.0-75.0) Lymphocytes (%) (Auto) % (20.0-45.0) Monocytes (%) (Auto) % (1.0-10.0) Eosinophils (%) (Auto) % (0.0-3.0) Basophils (%) (Auto) % (0.0-2.0) Differential Total Cells Counted 100 Neutrophils % (Manual) 72 % (45-75) Lymphocytes % (Manual) 9 % (20-45) L Monocytes % (Manual) 6 % (1-10) Eosinophils % (Manual) 12 % (0-3) H Basophils % (Manual) 1 % (0-2) Band Neutrophils 0 % (0-8) Nucleated Red Blood Cells 1 /100 WBC Platelet Estimate Adequate Platelet Morphology Normal Hypochromasia 4+ Anisocytosis 2+ Microcytosis 1+ Prothrombin Time 12.3 SEC (9.30-11.50) H Prothromb Time International Ratio 1.2 (0.9-1.1) H Activated Partial Thromboplast Time 30 SEC (23-33) Sodium Level 132 MMOL/L (136-145) L Potassium Level 6.2 MMOL/L (3.5-5.1) *H Chloride Level 95 MMOL/L (98-107) L Carbon Dioxide Level 24 MMOL/L (21-32) Anion Gap 14 mmol/L (5-15) Blood Urea Nitrogen 56 mg/dL (7-18) H Creatinine 9.4 MG/DL (0.55-1.30) H Estimat Glomerular Filtration Rate 5.1 mL/min (>60) Glucose Level 182 MG/DL (74-106) H Lactic Acid Level 2.10 mmol/L (0.4-2.0) H 2.00 mmol/L (0.66-2.22) Calcium Level 9.0 MG/DL (8.5-10.1) Magnesium Level 3.1 MG/DL (1.8-2.4) H Total Bilirubin 0.7 MG/DL (0.2-1.0) Aspartate Amino Transf (AST/SGOT) 28 U/L (15-37) Alanine Aminotransferase (ALT/SGPT) 14 U/L (12-78) Alkaline Phosphatase 183 U/L (46-116) H Total Creatine Kinase 277 U/L (26-308) Troponin I 0.009 ng/mL (0.000-0.056) Pro-B-Type Natriuretic Peptide 32007 pg/mL (0-125) H Total Protein 8.9 G/DL (6.4-8.2) H Albumin 4.1 G/DL (3.4-5.0) Globulin 4.8 g/dL Albumin/Globulin Ratio 0.9 (1.0-2.7) L Urine Color Yellow Urine Appearance Cloudy Urine pH 5 (4.5-8.0) Urine Specific Morse 1.015 (1.005-1.035) Urine Protein 4+ (NEGATIVE) H Urine Glucose (UA) Negative (NEGATIVE) Urine Ketones 1+ (NEGATIVE) H Urine Blood 1+ (NEGATIVE) H Urine Nitrite Negative (NEGATIVE) Urine Bilirubin Negative (NEGATIVE) Urine Urobilinogen Normal MG/DL (0.0-1.0) Urine Leukocyte Esterase 3+ (NEGATIVE) H Urine RBC 5-10 /HPF (0 - 2) H Urine WBC Tntc /HPF (0 - 2) H Urine Squamous Epithelial Cells Many /LPF (NONE/OCC) H Urine Amorphous Sediment Many /LPF (NONE) H Urine Bacteria Few /HPF (NONE) Microbiology Date/Time Source Procedure Growth Status 10/22/18 10:30 Nose Influenza Types A,B Antigen (ENRIQUETA) - Final Complete Shalom Vinson MD Oct 22, 2018 15:56
[2018-10-22 16:02] VITALS: BP 159/74
[2018-10-22] MEDS: NovoLOG Insulin Flexpen SUBQ SCH ×2 (17:14→20:49)
[2018-10-22] MEDS: Morphine Sulfate 2mg/ml Inj IVP PRN (17:51)
--- NOTE | 2018-10-22 19:30 | History and Physical Report ---
DATE OF ADMISSION: 10/22/2018 TIME SEEN: On 10/22/2018, at 1 p.m. CONSULTANTS: 1. Meghana Murillo M.D. 2. Jamison Garcia M.D. 3. Shalom Vinson M.D. 4. Demetris Squires M.D. 5. Malick Lizama M.D. CHIEF COMPLAINT: Shortness of breath, ESRD, severe anemia, possible GI bleed. BRIEF HISTORY: This is a 63-year-old female, who lives at home and presents to [facility] ER today with increased shortness of breath for two days. The patient is due for dialysis today. She was seen in the ER, getting pulmonary treatment, and will be admitted shortly. She admits to possible rectal bleed with blood in her and requests evaluation. Currently, slightly anxious in bed, O2, pulmonary treatment in the ER gurney, no complaint. REVIEW OF SYSTEMS: No chest pain. Slight shortness of breath. No nausea, vomiting, or diarrhea. PAST MEDICAL HISTORY: Includes ESRD, CHF, diabetes, hypertension, obesity, anemia. PAST SURGICAL HISTORY: Shunt. ALLERGIES: Denies. SOCIAL HISTORY: No smoking. No alcohol. No intravenous drug abuse. FAMILY HISTORY: Noncontributory. PHYSICAL EXAMINATION: GENERAL: Slightly anxious in bed, slight short of breath, oriented x3, in no acute distress. VITAL SIGNS: Temperature is 98 degrees, pulse 44, respiratory rate 14, blood pressure 120/52. CARDIOVASCULAR: No murmur. LUNGS: Poor air exchange. ABDOMEN: Bowel sounds distant. EXTREMITIES: Showed no cyanosis, clubbing, or edema. NEUROLOGIC: The patient moves all extremities, slightly weak. LABORATORY AND DIAGNOSTIC DATA: Hemoglobin and hematocrit 6.5/21, otherwise CBC is normal. BMP shows sodium 132, potassium 6.2, chloride 95, BUN and creatinine 56/9.4, glucose 182. Lactic acid 2.1. Troponin 0.009. BNP is 13,274. INR is 1.2, PTT is normal. Urinalysis shows 3+ leukocyte esterase. MEDICATIONS: Include allopurinol, PhosLo, Lipitor, Renvela, Catapres, insulin, albuterol. ASSESSMENT: ESRD, UTI, shortness of breath, severe anemia, CHF, possible GI bleed, diabetes, hypertension, obesity. PLAN: O2 and pulmonary treatment. Antibiotics per Infectious Disease. Blood pressure and blood sugar control. Hematology followup. OT, PT, dietary evaluation. CBC and BMP in the morning. Set up dialysis MEIR. We will continue to follow this patient medically. Roderick Henning D.O. DR: Karlie JOB#: [id number] CC:
[2018-10-22 20:00] VITALS: BP 124/75
--- NOTE | 2018-10-22 20:00 | Consultation ---
DATE OF CONSULTATION: 10/22/2018 REASON FOR CONSULTATION: 1. End-stage renal disease, on dialysis. 2. Hyperkalemia. HISTORY OF PRESENT ILLNESS: The patient is a 63-year-old female, well known to my nephrological service. The patient had been recently hospitalized at [facility] for the last several weeks and then transferred inpatient rehabilitation for which she was just discharged on 2017. She now returns again feeling short of breath, tired and fatigued with a potassium of 6.2. ALLERGIES: No known drug allergies. PAST MEDICAL HISTORY: 1. Anemia of chronic kidney disease. 2. End-stage renal disease, on dialysis Sunday, , and Sunday. 3. Secondary hyperparathyroidism. 4. Morbid obesity. 5. Hypertension. PAST SURGICAL HISTORY: 1. PermCath placement. 2. AV fistula. 3. Status post recent rupture of AV fistula. FAMILY HISTORY: Positive for diabetes and hypertension. LABORATORY AND DIAGNOSTIC DATA: Laboratories dated October 22, 2018, sodium 132, potassium 6.2, BUN 56, creatinine 9.4, calcium 9. Hemoglobin 6.5, hematocrit 21.7, white cell count 9.9, and platelet count 188. PHYSICAL EXAMINATION: VITAL SIGNS: Blood pressure 120/52, respiratory rate 14, pulse 56, temperature 98.4, 100% oxygen saturation room air. GENERAL: The patient awake, alert, in mild distress. HEENT: Extraocular muscles intact. No lymphadenopathy noted. CARDIOVASCULAR: S1 and S2. No rubs or gallops. PULMONARY: Clear to auscultation bilaterally. No rales, rhonchi or wheezes. ABDOMINAL: Obese, nondistended and nontender. EXTREMITIES: A 2+ pitting edema. ASSESSMENT AND PLAN: 1. End-stage renal disease on hemodialysis. The patient will be ordered stat hemodialysis due to mild shortness of breath and mild hyperkalemia. 2. Anemia of chronic kidney disease. 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 Has agreed to intravenous iron and Epogen with dialysis. 3. Shortness of breath. Stat hemodialysis has been ordered. 4. Mild hyperkalemia, potassium 6.2. The patient will be dialyzed for 3-1/2 hours on a 2 potassium bath. The patient has been treated medically in the emergency room. 5. Hypertension. Adjust medications as appropriate. 6. Diabetes mellitus per primary care physician. Nirmal Manley MD DR: Jan JOB#: [id number] CC:
--- NOTE | 2018-10-22 20:15 | Consultation ---
DATE OF CONSULTATION: 10/22/2018 CARDIOLOGY CONSULTATION CONSULTING PHYSICIAN: Shalom Vinson M.D. REFERRING PHYSICIAN: Roderick Henning D.O. REASON FOR CONSULTATION: Congestive heart failure, hypotension, coronary artery disease, and hyperkalemia. HISTORY OF PRESENT ILLNESS: This is a 63-year-old lady with history of morbid obesity, hypertension, diabetes, end-stage renal disease, on hemodialysis, history of coronary artery disease, prior stent placement, as well as history of episodes of bradycardia, who presented to the emergency room for increasing shortness of breath. The patient's urinalysis was cloudy and had too numerous to count wbc's and was severely anemic. Her potassium was also high. At the time of my evaluation, the patient denies any chest pain or shortness of breath. The patient's hemoglobin was 6.5 with a potassium of 6.2. PAST MEDICAL HISTORY: 1. Hypertension. 2. Morbid obesity. 3. End-stage renal disease, on hemodialysis. 4. Both eye blindness. 5. History of coronary artery disease, prior stent placement. 6. Bradycardia. 7. Colonic polyps. 8. Lumbar radiculopathy. MEDICATIONS: Per reconciliation. REVIEW OF SYSTEMS: Negative other than what was mentioned in the history of present illness. PHYSICAL EXAMINATION: VITAL SIGNS: Show blood pressure of 101/50, pulse is 45, respirations 18, and she is afebrile. HEAD AND NECK: Showed no jugular venous distention. LUNGS: Decreased breath sounds. CARDIOVASCULAR: Shows bradycardic S1 and S2 with no gallop. ABDOMEN: Morbidly obese. EXTREMITIES: 1+ pitting edema. LABORATORY AND DIAGNOSTIC STUDIES: Laboratories show white count of 9.9, hemoglobin of 6.7, hematocrit of 21.7, and platelet count of 188,000. Sodium is 132, potassium is 6.2, BUN of 36, and creatinine of 9.4. INR is 1.2. ASSESSMENT AND PLAN: 1. History of bradycardia. The patient remains bradycardic with heart rate in the 40s. The patient is off any sinus sriram or AV sriram blocking agents at this time. Watch the patient on telemetry. 2. Coronary artery disease with prior stent placement. Continue Lipitor. Off beta-hardik for bradycardia and off aspirin for severe anemia with hemoglobin in the 6 range. 3. End-stage renal disease, on hemodialysis. 4. Severe hyperkalemia. The patient will be getting dialysis. 5. Urinary tract infection. On antibiotic. 6. Blindness. 7. Morbid obesity. 8. Congestive heart failure with diastolic dysfunction. On hemodialysis. Thank you very much for allowing me to participate in the care of this patient. Please do not hesitate to contact me for any questions regarding my evaluation. Shalom Vinson M.D. DR: CHARU JOB#: [id number] CC:
[2018-10-22] MEDS: Heparin 5000 units/ml inj SUBQ SCH (20:50)
[2018-10-22 23:45] VITALS: BP 141/82
[2018-10-23] VITALS: BP 125/67
[2018-10-23 04:00] VITALS: BP 136/69
[2018-10-23] MEDS: NovoLOG Insulin Flexpen SUBQ SCH ×4 (05:50→22:36)
[2018-10-23] MEDS: Morphine Sulfate 2mg/ml Inj IVP PRN ×2 (05:58→15:44)
[2018-10-23 08:14] LABS: HEMATOCRIT 19.5 % (37.0-47.0); MEAN CORPUSCULAR VOLUME 77 FL (80-99); PLATELET COUNT 198 K/UL (150-450); RED BLOOD COUNT 2.53 M/UL (4.20-5.40); RED CELL DISTRIBUTION WIDTH 18.9 % (11.6-14.8); WHITE BLOOD COUNT 8.5 K/UL (4.8-10.8)
[2018-10-23 08:20] LABS: HEMOGLOBIN 5.8 G/DL (12.0-16.0)
[2018-10-23 08:26] LABS: INR 1.2 (0.9-1.1)
[2018-10-23] MEDS: Heparin 5000 units/ml inj SUBQ SCH ×2 (08:32→21:00)
[2018-10-23 08:35] VITALS: BP 186/98
[2018-10-23] MEDS: Allopurinol 100mg Tab ORAL SCH (08:39)
[2018-10-23] MEDS: Calcium Acetate 667mg Tab ORAL SCH (08:39)
[2018-10-23 08:46] LABS: ALANINE AMINOTRANSFERASE 16 U/L (12-78); ALBUMIN 3.8 G/DL (3.4-5.0); ALBUMIN/GLOBULIN RATIO 0.8 (1.0-2.7); ALKALINE PHOSPHATASE 158 U/L (46-116); ANION GAP 12 mmol/L (5-15); ASPARTATE AMINO TRANSFERASE 23 U/L (15-37); BILIRUBIN,TOTAL 0.5 MG/DL (0.2-1.0); BLOOD UREA NITROGEN 65 mg/dL (7-18); CALCIUM 8.9 MG/DL (8.5-10.1); CARBON DIOXIDE 26 MMOL/L (21-32); CHLORIDE 96 MMOL/L (98-107); CHOLESTEROL 79 MG/DL (< 200); CREATININE 10.1 MG/DL (0.55-1.30); FERRITIN > 2000 NG/ML (8-388); HDL CHOLESTEROL 46 MG/DL (40-60); POTASSIUM 5.6 MMOL/L (3.5-5.1); SODIUM 134 MMOL/L (136-145); TRIGLYCERIDES 52 MG/DL (30-150)
[2018-10-23 09:08] LABS: IRON 55 ug/dL (50-175); TOTAL IRON BINDING CAPACITY 197 ug/dL (250-450)
[2018-10-23 09:09] LABS: % IRON SATURATION 28 % (15-50)
--- NOTE | 2018-10-23 09:23 | Nephrology Progress Note ---
Assessment/Plan Assessment/Plan A/P 1) ESRD- HD TTS - HD today as K+ 5.6 2) Hyperk+ - HD today 3) Anemia- Colonoscopy today. Patient on EPO and does not accept blood products 4) HTN- stable Subjective Date patient seen: Oct 23, 2018 Time patient seen: 09:06 ROS Limited/Unobtainable: No Constitutional: Reports: malaise, weakness Allergies: Coded Allergies: NO KNOWN ALLERGIES (Unverified Allergy, Unknown, 10/15/15) All Systems: reviewed and negative except above Subjective Patient feeling better. Breathing improved Objective Last 24 Hour Vital Signs Date Time Temp Pulse Resp B/P (MAP) Pulse Ox O2 Delivery O2 Flow Rate FiO2 10/23/18 08:39 186/98 10/23/18 08:35 97.2 74 22 186/98 (127) 96 10/23/18 04:00 71 10/23/18 04:00 97.5 70 18 136/69 (91) 96 10/23/18 00:00 97.5 79 16 125/67 (86) 97 10/23/18 00:00 79 10/22/18 23:45 97.0 64 20 141/82 (101) 10/22/18 23:45 Nasal Cannula 1.5 10/22/18 21:18 68 16 Nasal Cannula 2.0 28 10/22/18 21:00 Nasal Cannula 2.0 10/22/18 20:00 97.3 93 20 124/75 (91) 10/22/18 20:00 97.3 69 18 124/75 (91) 98 10/22/18 20:00 Nasal Cannula 1.5 10/22/18 20:00 66 10/22/18 18:21 97.0 10/22/18 16:12 68 10/22/18 16:02 97.0 70 20 159/74 (102) 100 10/22/18 15:51 Nasal Cannula 2.0 10/22/18 15:00 98.8 88 20 101/50 100 Nasal Cannula 2.0 10/22/18 13:30 56 14 100 Room Air 21 10/22/18 12:42 21 10/22/18 12:42 44 14 100 Room Air 21 10/22/18 11:06 44 16 100 Room Air 21 10/22/18 10:58 21 10/22/18 10:58 46 17 100 Room Air 21 10/22/18 10:58 46 17 Room Air 21 10/22/18 10:27 62 20 Room Air 10/22/18 10:27 98.4 20 120/52 97 Nasal Cannula 10/22/18 10:13 98.4 62 20 120/52 97 Nasal Cannula Intake and Output 10/22/18 10/23/18 18:59 06:59 Intake Total 480 ml 120 ml Output Total 0 ml 4050 ml Balance 480 ml -3930 ml Intake Oral 480 ml 120 ml Output Urine Total 0 ml 0 ml Hemodialysis UF 4050 ml # Voids 1 Laboratory Tests 10/22/18 10:30: White Blood Count 9.9, Red Blood Count 2.77L, Hemoglobin 6.5*L, Hematocrit 21.7L , Mean Corpuscular Volume 78L, Mean Corpuscular Hemoglobin 23.6L, Mean Corpuscular Hemoglobin Concent 30.1L, Red Cell Distribution Width 18.3H, Platelet Count 188, Mean Platelet Volume 6.9, Neutrophils (%) (Auto) , Lymphocytes (%) (Auto) , Monocytes (%) (Auto) , Eosinophils (%) (Auto) , Basophils (%) (Auto) , Differential Total Cells Counted 100, Neutrophils % ( Manual) 72, Lymphocytes % (Manual) 9L, Monocytes % (Manual) 6, Eosinophils % ( Manual) 12H, Basophils % (Manual) 1, Band Neutrophils 0, Nucleated Red Blood Cells 1, Platelet Estimate Adequate, Platelet Morphology Normal, Hypochromasia 4 +, Anisocytosis 2+, Microcytosis 1+, Prothrombin Time 12.3H, Prothromb Time International Ratio 1.2H, Activated Partial Thromboplast Time 30, Sodium Level 132L, Potassium Level 6.2*H, Chloride Level 95L, Carbon Dioxide Level 24, Anion Gap 14, Blood Urea Nitrogen 56H, Creatinine 9.4H, Estimat Glomerular Filtration Rate 5.1, Glucose Level 182H, Lactic Acid Level 2.10H, Calcium Level 9.0, Magnesium Level 3.1H, Total Bilirubin 0.7, Aspartate Amino Transf (AST/SGOT) 28 , Alanine Aminotransferase (ALT/SGPT) 14, Alkaline Phosphatase 183H, Total Creatine Kinase 277, Troponin I 0.009, Pro-B-Type Natriuretic Peptide 27256C, Total Protein 8.9H, Albumin 4.1, Globulin 4.8, Albumin/Globulin Ratio 0.9L 10/22/18 10:45: Urine Color Yellow, Urine Appearance Cloudy, Urine pH 5, Urine Specific [place] 1.015, Urine Protein 4+H, Urine Glucose (UA) Negative, Urine Ketones 1+H, Urine Blood 1+H, Urine Nitrite Negative, Urine Bilirubin Negative, Urine Urobilinogen Normal, Urine Leukocyte Esterase 3+H, Urine RBC 5-10H, Urine WBC TntcH, Urine Squamous Epithelial Cells ManyH, Urine Amorphous Sediment ManyH, Urine Bacteria Few 10/22/18 11:30: Lactic Acid Level 2.00 10/23/18 08:07: White Blood Count 8.5, Red Blood Count 2.53L, Hemoglobin 5.8*L, Hematocrit 19.5L , Mean Corpuscular Volume 77L, Mean Corpuscular Hemoglobin 23.1L, Mean Corpuscular Hemoglobin Concent 29.9L, Red Cell Distribution Width 18.9H, Platelet Count 198, Mean Platelet Volume 6.7, Neutrophils (%) (Auto) , Lymphocytes (%) (Auto) , Monocytes (%) (Auto) , Eosinophils (%) (Auto) , Basophils (%) (Auto) , Neutrophils % (Manual) [Pending], Lymphocytes % (Manual) [Pending], Platelet Estimate [Pending], Platelet Morphology [Pending], Prothrombin Time 12.6H, Prothromb Time International Ratio 1.2H, Activated Partial Thromboplast Time 30, Sodium Level 134L, Potassium Level 5.6H, Chloride Level 96L, Carbon Dioxide Level 26, Anion Gap 12, Blood Urea Nitrogen 65H, Creatinine 10.1H, Estimat Glomerular Filtration Rate 4.7, Glucose Level 66#L, Calcium Level 8.9, Total Bilirubin 0.5, Aspartate Amino Transf (AST/SGOT) 23, Alanine Aminotransferase (ALT/SGPT) 16, Alkaline Phosphatase 158H, Total Protein 8.4H, Albumin 3.8, Globulin 4.6, Albumin/Globulin Ratio 0.8L, Reticulocyte Count [Pending], Hemoglobin A1c 7.0H, Iron Level [Pending], Unsaturated Iron Binding [Pending], Ferritin > 2000H, Triglycerides Level 52, Cholesterol Level 79, LDL Cholesterol 38, HDL Cholesterol 46, Cholesterol/HDL Ratio 1.7L, Carcinoembryonic Antigen [Pending], Vitamin B12 Level [Pending], Folate [Pending], Thyroid Stimulating Hormone (TSH) 1.053, Free Thyroxine 1.15 Height (Feet): 5 Height (Inches): 6.00 Weight (Pounds): 265 General Appearance: no apparent distress, alert EENT: normal ENT inspection Neck: normal alignment, supple Cardiovascular: normal rate, regular rhythm Respiratory/Chest: lungs clear, normal breath sounds Abdomen: non tender, soft Edema: 1+ Arm (L), 1+ Arm (R), 1+ Leg (L), 1+ Leg (R), 1+ Pedal (L), 1+ Pedal ( R), 1+ Generalized Nirmal Manley MD Oct 23, 2018 09:23
--- NOTE | 2018-10-23 11:26 | Consultation ---
Consult Note Consult Note HEMATOLOGY-ONCOLOGY CONSULTATION REFERRING PHYSICIAN: Roderick Henning REASON FOR CONSULT: Anemia DATE OF CONSULT: 10/23/2018 HISTORY OF PRESENT ILLNESS: The patient is a 63-year-old female. Pt is known to me from admission at [facility]. The patient had been recently hospitalized at [facility] for the last several weeks and then transferred inpatient rehabilitation for which she was just discharged on 2017. She now returns again feeling short of breath, tired and fatigued with a potassium of 6.2. Hematology services consulted for the evaluation of ACD. Prior and current labs have been reviewed. 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 PAST MEDICAL HISTORY: Anemia of chronic kidney disease, end-stage renal disease , secondary hyperparathyroidism, morbid obesity, hypertension. PAST SURGICAL HISTORY: PermCath placement, AV fistula, S/P recent rupture of AV fistula. FAMILY HISTORY: Positive for diabetes and hypertension. PHYSICAL EXAMINATION: VITAL SIGNS: Have been reviewed. GENERAL: The patient awake, alert, in mild distress. HEENT: Extraocular muscles intact. No lymphadenopathy noted. CARDIOVASCULAR: S1 and S2. No rubs or gallops. PULMONARY: Clear to auscultation bilaterally. No rales, rhonchi or wheezes. ABDOMINAL: Obese, nondistended and nontender. EXTREMITIES: A 2+ pitting edema. MEDICATIONS: Current meds have been reviewed LABORATORY AND DIAGNOSTIC DATA: sodium 132, potassium 6.2, BUN 56, creatinine 9.4, calcium 9. Hemoglobin 6.5, hematocrit 21.7, white cell count 9.9, and platelet count 188. ASSESSMENT AND PLAN: # Anemia of chronic disease due to underlying chronic medical issues, multifactorial. 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 --> Prior anemia w/u has been reviewed. Ferritin >2000 --> No evidence of hemolysis is noted, peripheral smear has been reviewed. --> Hgb goal >7. Transfuse prn. --> Pt has agreed to intravenous iron and Epogen with dialysis. # Anemia of chronic kidney disease. 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 --> Has agreed to intravenous iron and Epogen with dialysis. # End-stage renal disease on hemodialysis. The patient will be ordered stat hemodialysis due to mild shortness of breath and mild hyperkalemia. # Mild hyperkalemia, potassium 6.2. The patient will be dialyzed for 3-1/2 hours on a 2 potassium bath. The patient has been treated medically in the emergency room. # Hypertension. Adjust medications as appropriate. # Diabetes mellitus per primary care physician. : GREATLY APPRECIATE CONSULTATION. Malick Lizama MD Oct 23, 2018 11:26
[2018-10-23 12:00] VITALS: BP 153/79
--- NOTE | 2018-10-23 13:05 | GI Progress Note ---
Assessment/Plan Problems: (1) End stage renal disease on dialysis ICD Codes: N18.6 - End stage renal failure on dialysis; Z99.2 - Dependence on renal dialysis SNOMED: 227631172 (2) Uncontrolled diabetes mellitus ICD Codes: E11.9 - Type 2 diabetes mellitus without complications SNOMED: 920288059 (3) Morbid obesity ICD Codes: E66.01 - Morbid (severe) obesity due to excess calories SNOMED: 164091852, 84173152647779 (4) Anemia ICD Codes: D64.9 - Anemia, unspecified SNOMED: 291001009 (5) Iron deficiency ICD Codes: E61.1 - Iron deficiency SNOMED: 62185966 Status: stable Status Narrative Discussed with Dr. Garcia. Assessment/Plan Hx of recent colonoscopy at [facility] which was unremarkable EGD cancelled due to hyperkalemia, rescheduled for tomorrow. - NPO @ ME. - hold all blood thinners tonight. anemia work up OB stool r/o GI bleed monitor H&H, prn transfusions bowel regime ppi fu labs outpatient capsule given suspected iron deficiency anemia The patient was seen and examined at bedside and all new and available data was reviewed in the patients chart. I agree with the above findings, impression and plan. (Patient seen earlier today. Signature stamp does not reflect patient encounter time.). - Jamison Garcia MD Subjective Gastrointestinal/Abdominal: Reports: no symptoms Objective Last 24 Hour Vital Signs Date Time Temp Pulse Resp B/P (MAP) Pulse Ox O2 Delivery O2 Flow Rate FiO2 10/23/18 12:00 97.0 66 23 153/79 (103) 99 10/23/18 09:00 Nasal Cannula 2.0 10/23/18 08:39 186/98 10/23/18 08:35 97.2 74 22 186/98 (127) 96 10/23/18 08:00 77 10/23/18 04:00 71 10/23/18 04:00 97.5 70 18 136/69 (91) 96 10/23/18 00:00 97.5 79 16 125/67 (86) 97 10/23/18 00:00 79 10/22/18 23:45 97.0 64 20 141/82 (101) 10/22/18 23:45 Nasal Cannula 1.5 10/22/18 21:18 68 16 Nasal Cannula 2.0 28 10/22/18 21:00 Nasal Cannula 2.0 10/22/18 20:00 97.3 93 20 124/75 (91) 10/22/18 20:00 97.3 69 18 124/75 (91) 98 10/22/18 20:00 Nasal Cannula 1.5 10/22/18 20:00 66 10/22/18 18:21 97.0 10/22/18 16:12 68 10/22/18 16:02 97.0 70 20 159/74 (102) 100 10/22/18 15:51 Nasal Cannula 2.0 10/22/18 15:00 98.8 88 20 101/50 100 Nasal Cannula 2.0 10/22/18 13:30 56 14 100 Room Air 21 Intake and Output 10/22/18 10/23/18 19:00 07:00 Intake Total 480 ml 120 ml Output Total 0 ml 4050 ml Balance 480 ml -3930 ml Intake Oral 480 ml 120 ml Output Urine Total 0 ml 0 ml Hemodialysis UF 4050 ml # Voids 1 Laboratory Tests Test 10/23/18 08:07 White Blood Count 8.5 K/UL (4.8-10.8) Red Blood Count 2.53 M/UL (4.20-5.40) L Hemoglobin 5.8 G/DL (12.0-16.0) *L Hematocrit 19.5 % (37.0-47.0) L Mean Corpuscular Volume 77 FL (80-99) L Mean Corpuscular Hemoglobin 23.1 PG (27.0-31.0) L Mean Corpuscular Hemoglobin Concent 29.9 G/DL (32.0-36.0) L Red Cell Distribution Width 18.9 % (11.6-14.8) H Platelet Count 198 K/UL (150-450) Mean Platelet Volume 6.7 FL (6.5-10.1) Neutrophils (%) (Auto) % (45.0-75.0) Lymphocytes (%) (Auto) % (20.0-45.0) Monocytes (%) (Auto) % (1.0-10.0) Eosinophils (%) (Auto) % (0.0-3.0) Basophils (%) (Auto) % (0.0-2.0) Differential Total Cells Counted 100 Neutrophils % (Manual) 62 % (45-75) Lymphocytes % (Manual) 16 % (20-45) L Monocytes % (Manual) 12 % (1-10) H Eosinophils % (Manual) 10 % (0-3) H Basophils % (Manual) 0 % (0-2) Band Neutrophils 0 % (0-8) Platelet Estimate Adequate Platelet Morphology Normal Basophilic Stippling 1+ Anisocytosis 1+ Ovalocytes 1+ Reticulocyte Count 3.8 % (0.0-2.0) H Prothrombin Time 12.6 SEC (9.30-11.50) H Prothromb Time International Ratio 1.2 (0.9-1.1) H Activated Partial Thromboplast Time 30 SEC (23-33) Sodium Level 134 MMOL/L (136-145) L Potassium Level 5.6 MMOL/L (3.5-5.1) H Chloride Level 96 MMOL/L (98-107) L Carbon Dioxide Level 26 MMOL/L (21-32) Anion Gap 12 mmol/L (5-15) Blood Urea Nitrogen 65 mg/dL (7-18) H Creatinine 10.1 MG/DL (0.55-1.30) H Estimat Glomerular Filtration Rate 4.7 mL/min (>60) Glucose Level 66 MG/DL (74-106) #L Hemoglobin A1c 7.0 % (4.3-6.0) H Calcium Level 8.9 MG/DL (8.5-10.1) Iron Level 55 ug/dL (50-175) Total Iron Binding Capacity 197 ug/dL (250-450) L Percent Iron Saturation 28 % (15-50) Unsaturated Iron Binding 142 ug/dL (112-346) Ferritin > 2000 NG/ML (8-388) H Total Bilirubin 0.5 MG/DL (0.2-1.0) Aspartate Amino Transf (AST/SGOT) 23 U/L (15-37) Alanine Aminotransferase (ALT/SGPT) 16 U/L (12-78) Alkaline Phosphatase 158 U/L (46-116) H Total Protein 8.4 G/DL (6.4-8.2) H Albumin 3.8 G/DL (3.4-5.0) Globulin 4.6 g/dL Albumin/Globulin Ratio 0.8 (1.0-2.7) L Triglycerides Level 52 MG/DL (30-150) Cholesterol Level 79 MG/DL (< 200) LDL Cholesterol 38 mg/dL (<100) HDL Cholesterol 46 MG/DL (40-60) Cholesterol/HDL Ratio 1.7 (3.3-4.4) L Carcinoembryonic Antigen Pending Vitamin B12 Level 1099 PG/ML (193-986) H Folate 34.4 NG/ML (8.6-58.9) Thyroid Stimulating Hormone (TSH) 1.053 uiU/mL (0.358-3.740) Free Thyroxine 1.15 NG/DL (0.76-1.46) Height (Feet): 5 Height (Inches): 6.00 Weight (Pounds): 152 General Appearance: WD/WN, no apparent distress, alert, morbidly obese Cardiovascular: normal rate Respiratory/Chest: normal breath sounds, no respiratory distress Abdominal Exam: normal bowel sounds, non tender, soft Extremities: non-tender Jaime Martin NP Oct 23, 2018 13:05
--- NOTE | 2018-10-23 13:20 | Consultation ---
History of Present Illness General Date patient seen: Oct 23, 2018 Chief Complaint: Dyspnea/Respdistress Referring physician: BRIE LAN Reason for Consultation: RECTAL BLEED Present Illness HPI 63 y/o F with hx of ESRD on HD, DM2, b/l eye blindness, CHF, bradycardia, 2ry hyperparathyroidism, CAD s/p stent, AOCD, s/p AVG w recent rupture, HTN, morbid obesity presents to ED on 10/22 with SOB, fatigue and weakness. She was found to have elevated K to 6.2 and Hgb 6.7; pt is Jehova witness and refuses blood transfusion. Denied CP OF note, patient recently admitted to [facility] and recently discharge to rehab on 10/17. ID consulted for concern for UTI Afebrile no leukocytosis u/a wbc tntc, nitneg, leuk +3 Allergies: Coded Allergies: NO KNOWN ALLERGIES (Unverified Allergy, Unknown, 10/15/15) Medication History Scheduled Acetaminophen* (Acetaminophen 325MG Tablet*), 650 MG ORAL Q6H, (Reported) Allopurinol* (Zyloprim*), 100 MG ORAL DAILY, (Reported) Amlodipine Besylate (Norvasc), 2.5 MG ORAL DAILY, (Reported) Amlodipine Besylate* (Amlodipine Besylate*), 10 MG ORAL DAILY, (Reported) Ascorbic Acid* (Ascorbic Acid*), 500 MG ORAL DAILY, (Reported) Aspirin Ec* (Aspirin Ec*), 81 MG ORAL DAILY, (Reported) Atorvastatin Calcium* (Atorvastatin Calcium*), 20 MG ORAL BEDTIME, (Reported) Carvedilol (Coreg), 3.125 MG ORAL EVERY 12 HOURS, (Reported) Carvedilol* (Carvedilol*), 3.125 MG ORAL EVERY 12 HOURS, (Reported) Docusate Sodium (Dok), 100 MG PO BID, (Reported) Ferrous Sulfate* (Ferrous Sulfate*), 325 MG ORAL DAILY, (Reported) Furosemide* (Lasix*), 20 MG ORAL DAILY, (Reported) Gabapentin* (Gabapentin*), 400 MG ORAL TWICE A DAY, (Reported) Glimepiride* (Amaryl*), 4 MG ORAL BEFORE BREAKFAST Heparin Sod (Porcine) (Heparin Sodium*), 5,000 UNITS SUBQ EVERY 12 HOURS, ( Reported) Hydralazine HCl (Hydralazine HCl), 10 MG ORAL EVERY 6 HOURS, (Reported) Hydralazine Hcl* (Hydralazine Hcl*), 50 MG ORAL EVERY 8 HOURS, (Reported) Hydrocodone Bit/Acetaminophen 5-325* ([place] 5-325*), 1 TAB ORAL Q8HR, (Reported) Insulin Aspart (Novolog Flexpen), 1 UNITS SUBQ AC+HS, (Reported) Insulin Detemir (Levemir Flexpen), 10 UNITS SUBQ BEDTIME Isosorbide Dinitrate (Isosorbide Dinitrate*), 30 MG ORAL BID, (Reported) Lifitegrast (Xiidra), 1 EACH OP BID, (Reported) Lisinopril (Lisinopril*), 5 MG ORAL DAILY, (Reported) Losartan Potassium* (Losartan Potassium*), 50 MG ORAL DAILY, (Reported) Mupirocin Nasal (Bactroban Nasal), 1 APPLIC NASAL TID, (Reported) Nitrofurantoin Monohyd/M-Cryst* (Macrobid 100 Mg*), 100 MG ORAL EVERY 12 HOURS Pantoprazole* (Pantoprazole*), 40 MG ORAL DAILY, (Reported) Ranitidine Hcl* (Zantac*), 150 MG ORAL DAILY, (Reported) Sevelamer Carbonate (Renvela), 800 MG ORAL THREE TIMES A DAY, (Reported) Scheduled PRN Acetaminophen (Tylenol), 650 MG ORAL Q4HR PRN for Mild Pain/Temp > 100.5, ( Reported) Al Hydroxide/mg Hydroxide (Mag-Al Plus Suspension), 30 ML PO Q6HR PRN for indigestion, (Reported) Albuterol Sulfate* (Albuterol Sulfate Hhn*), 3 ML INH Q6H PRN for Shortness of Breath, (Reported) Clonidine Hcl* (Catapres*), 0.1 MG ORAL EVERY 4 HOURS PRN for For High Blood Pressure, (Reported) Diphenhydramine Hcl* (Diphenhydramine Hcl*), 25 MG ORAL Q6H PRN for Itching, ( Reported) Insulin Regular, Human* (Novolin R*), 0 SUBQ AC+HS PRN for Sliding Scale, ( Reported) Nitroglycerin (Nitrostat), 0.4 MG SL Q5M X3 DOSES PRN for CHEST PAIN, (Reported) Ondansetron (Zofran), 4 MG ORAL Q6H PRN for Nausea & Vomiting, (Reported) Polyethylene Glycol 3350* (Miralax*), 17 GM ORAL DAILY PRN for Constipation, ( Reported) Temazepam* (Restoril*), 15 MG ORAL BEDTIME PRN for Insomnia, (Reported) Tramadol Hcl* (Ultram*), 50 MG ORAL Q6H PRN for For Pain, (Reported) Zolpidem Tartrate* (Zolpidem Tartrate*), 5 MG ORAL BEDTIME PRN for Insomnia, ( Reported) Miscellaneous Medications Calcium Acetate (Calcium Acetate), 667 MG PO, (Reported) Folic Acid/Vitamin B Comp W-C (Dialyvite 800 Tablet), 0.8 MG PO, (Reported) Insulin Human Lispro (Humalog), 0 SUBQ, (Reported) Lactulose (Lactulose*), 15 ML ORAL, (Reported) Patient History Healthcare decision maker Resuscitation status Full Code Advanced Directive on File Patient History Narrative Pmhx: as above Shx: Jehovah Witness Fhx: non contributory Review of Systems All Other Systems: negative except mentioned in HPI Physical Exam Physical Exam Narrative GENERAL: The patient awake, alert, in mild distress. HEENT: Extraocular muscles intact. No lymphadenopathy noted. CARDIOVASCULAR: S1 and S2. No rubs or gallops. PULMONARY: Clear to auscultation bilaterally. No rales, rhonchi or wheezes. ABDOMINAL: Obese, nondistended and nontender. EXTREMITIES: A 2+ pitting edema. Last 24 Hour Vital Signs Date Time Temp Pulse Resp B/P (MAP) Pulse Ox O2 Delivery O2 Flow Rate FiO2 10/23/18 09:00 Nasal Cannula 2.0 10/23/18 08:39 186/98 10/23/18 08:35 97.2 74 22 186/98 (127) 96 10/23/18 08:00 77 10/23/18 04:00 71 10/23/18 04:00 97.5 70 18 136/69 (91) 96 10/23/18 00:00 97.5 79 16 125/67 (86) 97 10/23/18 00:00 79 10/22/18 23:45 97.0 64 20 141/82 (101) 11/27/18 23:45 Nasal Cannula 1.5 10/22/18 21:18 68 16 Nasal Cannula 2.0 28 10/22/18 21:00 Nasal Cannula 2.0 10/22/18 20:00 97.3 93 20 124/75 (91) 10/22/18 20:00 97.3 69 18 124/75 (91) 98 10/22/18 20:00 Nasal Cannula 1.5 10/22/18 20:00 66 10/22/18 18:21 97.0 10/22/18 16:12 68 10/22/18 16:02 97.0 70 20 159/74 (102) 100 10/22/18 15:51 Nasal Cannula 2.0 10/22/18 15:00 98.8 88 20 101/50 100 Nasal Cannula 2.0 10/22/18 13:30 56 14 100 Room Air 21 Intake and Output 10/22/18 10/23/18 19:00 07:00 Intake Total 480 ml 120 ml Output Total 0 ml 4050 ml Balance 480 ml -3930 ml Intake Oral 480 ml 120 ml Output Urine Total 0 ml 0 ml Hemodialysis UF 4050 ml # Voids 1 Laboratory Tests Test 10/23/18 08:07 White Blood Count 8.5 K/UL (4.8-10.8) Red Blood Count 2.53 M/UL (4.20-5.40) L Hemoglobin 5.8 G/DL (12.0-16.0) *L Hematocrit 19.5 % (37.0-47.0) L Mean Corpuscular Volume 77 FL (80-99) L Mean Corpuscular Hemoglobin 23.1 PG (27.0-31.0) L Mean Corpuscular Hemoglobin Concent 29.9 G/DL (32.0-36.0) L Red Cell Distribution Width 18.9 % (11.6-14.8) H Platelet Count 198 K/UL (150-450) Mean Platelet Volume 6.7 FL (6.5-10.1) Neutrophils (%) (Auto) % (45.0-75.0) Lymphocytes (%) (Auto) % (20.0-45.0) Monocytes (%) (Auto) % (1.0-10.0) Eosinophils (%) (Auto) % (0.0-3.0) Basophils (%) (Auto) % (0.0-2.0) Differential Total Cells Counted 100 Neutrophils % (Manual) 62 % (45-75) Lymphocytes % (Manual) 16 % (20-45) L Monocytes % (Manual) 12 % (1-10) H Eosinophils % (Manual) 10 % (0-3) H Basophils % (Manual) 0 % (0-2) Band Neutrophils 0 % (0-8) Platelet Estimate Adequate Platelet Morphology Normal Basophilic Stippling 1+ Anisocytosis 1+ Ovalocytes 1+ Reticulocyte Count 3.8 % (0.0-2.0) H Prothrombin Time 12.6 SEC (9.30-11.50) H Prothromb Time International Ratio 1.2 (0.9-1.1) H Activated Partial Thromboplast Time 30 SEC (23-33) Sodium Level 134 MMOL/L (136-145) L Potassium Level 5.6 MMOL/L (3.5-5.1) H Chloride Level 96 MMOL/L (98-107) L Carbon Dioxide Level 26 MMOL/L (21-32) Anion Gap 12 mmol/L (5-15) Blood Urea Nitrogen 65 mg/dL (7-18) H Creatinine 10.1 MG/DL (0.55-1.30) H Estimat Glomerular Filtration Rate 4.7 mL/min (>60) Glucose Level 66 MG/DL (74-106) #L Hemoglobin A1c 7.0 % (4.3-6.0) H Calcium Level 8.9 MG/DL (8.5-10.1) Iron Level 55 ug/dL (50-175) Total Iron Binding Capacity 197 ug/dL (250-450) L Percent Iron Saturation 28 % (15-50) Unsaturated Iron Binding 142 ug/dL (112-346) Ferritin > 2000 NG/ML (8-388) H Total Bilirubin 0.5 MG/DL (0.2-1.0) Aspartate Amino Transf (AST/SGOT) 23 U/L (15-37) Alanine Aminotransferase (ALT/SGPT) 16 U/L (12-78) Alkaline Phosphatase 158 U/L (46-116) H Total Protein 8.4 G/DL (6.4-8.2) H Albumin 3.8 G/DL (3.4-5.0) Globulin 4.6 g/dL Albumin/Globulin Ratio 0.8 (1.0-2.7) L Triglycerides Level 52 MG/DL (30-150) Cholesterol Level 79 MG/DL (< 200) LDL Cholesterol 38 mg/dL (<100) HDL Cholesterol 46 MG/DL (40-60) Cholesterol/HDL Ratio 1.7 (3.3-4.4) L Carcinoembryonic Antigen Pending Vitamin B12 Level 1099 PG/ML (193-986) H Folate 34.4 NG/ML (8.6-58.9) Thyroid Stimulating Hormone (TSH) 1.053 uiU/mL (0.358-3.740) Free Thyroxine 1.15 NG/DL (0.76-1.46) Height (Feet): 5 Height (Inches): 6.00 Weight (Pounds): 152 Medications Current Medications Medications (Trade) Dose Ordered Sig/Josi Route PRN Reason Start Time Stop Time Status Last Admin Dose Admin Acetaminophen (Tylenol) 650 mg Q4H PRN ORAL fever 10/22/18 13:28 11/21/18 13:27 Albuterol/ Ipratropium (Albuterol/ Ipratropium) 3 ml Q6H PRN HHN dyspnea 10/22/18 13:30 10/27/18 13:29 Allopurinol (Zyloprim) 100 mg DAILY ORAL 10/23/18 09:00 11/22/18 08:59 10/23/18 08:39 Atorvastatin Calcium (Lipitor) 20 mg BEDTIME ORAL 10/22/18 21:00 11/21/18 20:59 10/22/18 20:48 Calcium Acetate (Phoslo) 667 mg DAILY ORAL 10/23/18 09:00 11/22/18 08:59 10/23/18 08:39 Clonidine HCl (Catapres Tab) 0.1 mg Q4H PRN ORAL For High Blood Pressure 10/22/18 13:30 11/21/18 13:29 10/23/18 08:39 Dextrose (Dextrose 50%) 25 ml Q30M PRN IV Hypoglycemia 10/22/18 13:45 11/21/18 13:30 Dextrose (Dextrose 50%) 50 ml Q30M PRN IV hypoglycemia 10/22/18 13:45 11/21/18 13:44 10/23/18 11:41 Epoetin Jose De Jesus (Procrit (for ESRD on dialysis)) 10,000 units MON-WED-FRI SUBQ 10/23/18 21:00 11/22/18 20:59 Heparin Sodium (Porcine) (Heparin 5000 units/ml) 5,000 units EVERY 12 HOURS SUBQ 10/22/18 21:00 11/21/18 20:59 Insulin Aspart (NovoLOG) BEFORE MEALS AND HS SUBQ 10/22/18 16:30 11/21/18 16:29 10/22/18 20:49 Morphine Sulfate (Morphine Sulfate) 1 mg Q4H PRN IVP For Pain 10/22/18 13:30 10/29/18 13:29 10/23/18 05:58 Ondansetron HCl (Zofran) 4 mg Q6H PRN IVP Nausea & Vomiting 10/22/18 13:30 11/21/18 13:29 Sevelamer Carbonate (Renvela) 800 mg THREE TIMES A DAY ORAL 10/22/18 18:00 11/21/18 17:59 10/23/18 08:39 Zolpidem Tartrate (Ambien) 5 mg HSPRN PRN ORAL Insomnia 10/22/18 13:30 10/29/18 13:29 Assessment/Plan Assessment/Plan Abx: Ceftriaxone x1 10/22 Assessment: Afebrile NO Leukocytosis Pyuria- no UTI symptoms -u/a wbc tntc, nitneg, leuk +3; ucx NTD Severe anemia Hyperkalemia SOB 2ry to CHF exacerbation -CXR: Cardiomegaly with pulmonary venous congestion -influenza sc neg ESRD on HD DM2 b/l eye blindness CHF, bradycardia 2ry hyperparathyroidism CAD s/p stent AOCD s/p AVG w recent rupture HTN morbid obesity Plan: -Continue to monitor off abx -f/u cx -Monitor CBC/CMP, temperatures -aspiration precautions Thank you for this consultation. Will continue to follow along with you. Discussed with Susi Kumar M.D. Oct 23, 2018 13:20
--- NOTE | 2018-10-23 14:10 | General Progress Note ---
Assessment/Plan Problem List: (1) Congestive heart failure (CHF) ICD Codes: I50.9 - Heart failure, unspecified SNOMED: 42032599 (2) Anemia ICD Codes: D64.9 - Anemia, unspecified SNOMED: 832063795 (3) Hypertension ICD Codes: I10 - Essential (primary) hypertension SNOMED: 95869985 (4) Morbid obesity ICD Codes: E66.01 - Morbid (severe) obesity due to excess calories SNOMED: 642291287, 05123743128231 (5) End stage renal disease on dialysis ICD Codes: N18.6 - End stage renal failure on dialysis; Z99.2 - Dependence on renal dialysis SNOMED: 726284914 Status: unchanged Assessment/Plan ot pt diet dialysis heme f/u cbc bmp am Subjective Constitutional: Reports: weakness Allergies: Coded Allergies: NO KNOWN ALLERGIES (Unverified Allergy, Unknown, 10/15/15) All Systems: reviewed and negative except above Subjective o2nc sl gen pain Objective Last 24 Hour Vital Signs Date Time Temp Pulse Resp B/P (MAP) Pulse Ox O2 Delivery O2 Flow Rate FiO2 10/23/18 12:00 97.0 66 23 153/79 (103) 99 10/23/18 12:00 62 10/23/18 09:00 Nasal Cannula 2.0 10/23/18 08:39 186/98 10/23/18 08:35 97.2 74 22 186/98 (127) 96 10/23/18 08:00 77 10/23/18 04:00 71 10/23/18 04:00 97.5 70 18 136/69 (91) 96 10/23/18 00:00 97.5 79 16 125/67 (86) 97 10/23/18 00:00 79 10/22/18 23:45 97.0 64 20 141/82 (101) 10/22/18 23:45 Nasal Cannula 1.5 10/22/18 21:18 68 16 Nasal Cannula 2.0 28 10/22/18 21:00 Nasal Cannula 2.0 10/22/18 20:00 97.3 93 20 124/75 (91) 10/22/18 20:00 97.3 69 18 124/75 (91) 98 10/22/18 20:00 Nasal Cannula 1.5 10/22/18 20:00 66 10/22/18 18:21 97.0 10/22/18 16:12 68 10/22/18 16:02 97.0 70 20 159/74 (102) 100 10/22/18 15:51 Nasal Cannula 2.0 10/22/18 15:00 98.8 88 20 101/50 100 Nasal Cannula 2.0 Intake and Output 10/22/18 10/23/18 19:00 07:00 Intake Total 480 ml 120 ml Output Total 0 ml 4050 ml Balance 480 ml -3930 ml Intake Oral 480 ml 120 ml Output Urine Total 0 ml 0 ml Hemodialysis UF 4050 ml # Voids 1 Laboratory Tests 10/23/18 08:07: White Blood Count 8.5, Red Blood Count 2.53L, Hemoglobin 5.8*L, Hematocrit 19.5L , Mean Corpuscular Volume 77L, Mean Corpuscular Hemoglobin 23.1L, Mean Corpuscular Hemoglobin Concent 29.9L, Red Cell Distribution Width 18.9H, Platelet Count 198, Mean Platelet Volume 6.7, Neutrophils (%) (Auto) , Lymphocytes (%) (Auto) , Monocytes (%) (Auto) , Eosinophils (%) (Auto) , Basophils (%) (Auto) , Differential Total Cells Counted 100, Neutrophils % ( Manual) 62, Lymphocytes % (Manual) 16L, Monocytes % (Manual) 12H, Eosinophils % (Manual) 10H, Basophils % (Manual) 0, Band Neutrophils 0, Platelet Estimate Adequate, Platelet Morphology Normal, Basophilic Stippling 1+, Anisocytosis 1+, Ovalocytes 1+, Reticulocyte Count 3.8H, Prothrombin Time 12.6H, Prothromb Time International Ratio 1.2H, Activated Partial Thromboplast Time 30, Sodium Level 134L, Potassium Level 5.6H, Chloride Level 96L, Carbon Dioxide Level 26, Anion Gap 12, Blood Urea Nitrogen 65H, Creatinine 10.1H, Estimat Glomerular Filtration Rate 4.7, Glucose Level 66#L, Hemoglobin A1c 7.0H, Calcium Level 8.9 , Iron Level 55, Total Iron Binding Capacity 197L, Percent Iron Saturation 28, Unsaturated Iron Binding 142, Ferritin > 2000H, Total Bilirubin 0.5, Aspartate Amino Transf (AST/SGOT) 23, Alanine Aminotransferase (ALT/SGPT) 16, Alkaline Phosphatase 158H, Total Protein 8.4H, Albumin 3.8, Globulin 4.6, Albumin/ Globulin Ratio 0.8L, Triglycerides Level 52, Cholesterol Level 79, LDL Cholesterol 38, HDL Cholesterol 46, Cholesterol/HDL Ratio 1.7L, Carcinoembryonic Antigen [Pending], Vitamin B12 Level 1099H, Folate 34.4, Thyroid Stimulating Hormone (TSH) 1.053, Free Thyroxine 1.15 Height (Feet): 5 Height (Inches): 6.00 Weight (Pounds): 152 General Appearance: lethargic EENT: normal ENT inspection Neck: normal alignment Cardiovascular: normal peripheral pulses, normal rate, regular rhythm Respiratory/Chest: chest wall non-tender, lungs clear, normal breath sounds Abdomen: normal bowel sounds, non tender, soft Extremities: normal inspection Edema: no edema noted Arm (L), no edema noted Arm (R), no edema noted Leg (L), no edema noted Leg (R), no edema noted Pedal (L), no edema noted Pedal (R), no edema noted Generalized Neurologic: responsive, motor weakness Skin: normal pigmentation, warm/dry Roderick Henning DO Oct 23, 2018 14:10
[2018-10-23 16:00] VITALS: BP 132/73
--- NOTE | 2018-10-23 18:31 | Cardiac Electrophysiology PN ---
Assessment/Plan Assessment/Plan 1. Congestive heart failure due to hypertensive heart disease and diastolic dysfunction. Echocardiogram showed EF 55%. Continue dialysis. 2. Hypertensive heart disease. Start Norvasc 10 mg daily and HD. On p.r.n.clonidine. 3. End-stage renal disease, on hemodialysis. 4. Diabetes, on insulin. 5. Hyperlipidemia, on Lipitor. JAE RN Subjective Subjective Awaiting HD tonight. No CP or SOB Objective Last 24 Hour Vital Signs Date Time Temp Pulse Resp B/P (MAP) Pulse Ox O2 Delivery O2 Flow Rate FiO2 10/23/18 16:14 97.0 10/23/18 16:00 84 10/23/18 16:00 97.3 59 23 132/73 (92) 98 10/23/18 12:00 97.0 66 23 153/79 (103) 99 10/23/18 12:00 62 10/23/18 09:00 Nasal Cannula 2.0 10/23/18 08:39 186/98 10/23/18 08:35 97.2 74 22 186/98 (127) 96 10/23/18 08:00 77 10/23/18 04:00 71 10/23/18 04:00 97.5 70 18 136/69 (91) 96 10/23/18 00:00 97.5 79 16 125/67 (86) 97 10/23/18 00:00 79 10/22/18 23:45 97.0 64 20 141/82 (101) 10/22/18 23:45 Nasal Cannula 1.5 10/22/18 21:18 68 16 Nasal Cannula 2.0 28 10/22/18 21:00 Nasal Cannula 2.0 10/22/18 20:00 97.3 93 20 124/75 (91) 10/22/18 20:00 97.3 69 18 124/75 (91) 98 10/22/18 20:00 Nasal Cannula 1.5 10/22/18 20:00 66 Intake and Output 10/22/18 10/23/18 19:00 07:00 Intake Total 480 ml 120 ml Output Total 0 ml 4050 ml Balance 480 ml -3930 ml Intake Oral 480 ml 120 ml Output Urine Total 0 ml 0 ml Hemodialysis UF 4050 ml # Voids 1 Laboratory Tests Test 10/23/18 08:07 White Blood Count 8.5 K/UL (4.8-10.8) Red Blood Count 2.53 M/UL (4.20-5.40) L Hemoglobin 5.8 G/DL (12.0-16.0) *L Hematocrit 19.5 % (37.0-47.0) L Mean Corpuscular Volume 77 FL (80-99) L Mean Corpuscular Hemoglobin 23.1 PG (27.0-31.0) L Mean Corpuscular Hemoglobin Concent 29.9 G/DL (32.0-36.0) L Red Cell Distribution Width 18.9 % (11.6-14.8) H Platelet Count 198 K/UL (150-450) Mean Platelet Volume 6.7 FL (6.5-10.1) Neutrophils (%) (Auto) % (45.0-75.0) Lymphocytes (%) (Auto) % (20.0-45.0) Monocytes (%) (Auto) % (1.0-10.0) Eosinophils (%) (Auto) % (0.0-3.0) Basophils (%) (Auto) % (0.0-2.0) Differential Total Cells Counted 100 Neutrophils % (Manual) 62 % (45-75) Lymphocytes % (Manual) 16 % (20-45) L Monocytes % (Manual) 12 % (1-10) H Eosinophils % (Manual) 10 % (0-3) H Basophils % (Manual) 0 % (0-2) Band Neutrophils 0 % (0-8) Platelet Estimate Adequate Platelet Morphology Normal Basophilic Stippling 1+ Anisocytosis 1+ Ovalocytes 1+ Reticulocyte Count 3.8 % (0.0-2.0) H Prothrombin Time 12.6 SEC (9.30-11.50) H Prothromb Time International Ratio 1.2 (0.9-1.1) H Activated Partial Thromboplast Time 30 SEC (23-33) Sodium Level 134 MMOL/L (136-145) L Potassium Level 5.6 MMOL/L (3.5-5.1) H Chloride Level 96 MMOL/L (98-107) L Carbon Dioxide Level 26 MMOL/L (21-32) Anion Gap 12 mmol/L (5-15) Blood Urea Nitrogen 65 mg/dL (7-18) H Creatinine 10.1 MG/DL (0.55-1.30) H Estimat Glomerular Filtration Rate 4.7 mL/min (>60) Glucose Level 66 MG/DL (74-106) #L Hemoglobin A1c 7.0 % (4.3-6.0) H Calcium Level 8.9 MG/DL (8.5-10.1) Iron Level 55 ug/dL (50-175) Total Iron Binding Capacity 197 ug/dL (250-450) L Percent Iron Saturation 28 % (15-50) Unsaturated Iron Binding 142 ug/dL (112-346) Ferritin > 2000 NG/ML (8-388) H Total Bilirubin 0.5 MG/DL (0.2-1.0) Aspartate Amino Transf (AST/SGOT) 23 U/L (15-37) Alanine Aminotransferase (ALT/SGPT) 16 U/L (12-78) Alkaline Phosphatase 158 U/L (46-116) H Total Protein 8.4 G/DL (6.4-8.2) H Albumin 3.8 G/DL (3.4-5.0) Globulin 4.6 g/dL Albumin/Globulin Ratio 0.8 (1.0-2.7) L Triglycerides Level 52 MG/DL (30-150) Cholesterol Level 79 MG/DL (< 200) LDL Cholesterol 38 mg/dL (<100) HDL Cholesterol 46 MG/DL (40-60) Cholesterol/HDL Ratio 1.7 (3.3-4.4) L Carcinoembryonic Antigen Pending Vitamin B12 Level 1099 PG/ML (193-986) H Folate 34.4 NG/ML (8.6-58.9) Thyroid Stimulating Hormone (TSH) 1.053 uiU/mL (0.358-3.740) Free Thyroxine 1.15 NG/DL (0.76-1.46) Microbiology Date/Time Source Procedure Growth Status 10/22/18 10:30 Nose Influenza Types A,B Antigen (ENRIQUETA) - Final Complete 10/22/18 10:45 Urine,Clean Catch Urine Culture - Preliminary NO GROWTH Resulted Objective HEAD AND NECK: No jugular venous distention. LUNGS: Decreased breath sounds. CARDIOVASCULAR: Regular S1 and S2 with no gallop. ABDOMEN: Morbidly obese. EXTREMITIES: 1+ pitting edema. Shalom Vinson MD Oct 23, 2018 18:31
[2018-10-23 20:00] VITALS: BP 131/75
[2018-10-23] MEDS: Epogen (for ESRD on dialysis) SUBQ SCH (22:33)
[2018-10-24] VITALS (10 sets, daily range): BP systolic 115–179; BP diastolic 53–99
[2018-10-24 06:18] LABS: ANION GAP 11 mmol/L (5-15); BLOOD UREA NITROGEN 55 mg/dL (7-18); CALCIUM 8.8 MG/DL (8.5-10.1); CARBON DIOXIDE 26 MMOL/L (21-32); CHLORIDE 98 MMOL/L (98-107); CREATININE 9.3 MG/DL (0.55-1.30); HEMATOCRIT 21.3 % (37.0-47.0); MEAN CORPUSCULAR VOLUME 79 FL (80-99); PLATELET COUNT 178 K/UL (150-450); POTASSIUM 5.5 MMOL/L (3.5-5.1); RED BLOOD COUNT 2.71 M/UL (4.20-5.40); SODIUM 135 MMOL/L (136-145)
[2018-10-24 06:22] LABS: HEMOGLOBIN 6.5 G/DL (12.0-16.0)
[2018-10-24 06:27] LABS: INR 1.2 (0.9-1.1)
[2018-10-24] MEDS ORDERED: fentaNYL 100 mcg/2 mL IV PRN (06:30)
[2018-10-24] MEDS ORDERED: Atropine Inj 1mg/10ml Syr IV PRN (06:30)
[2018-10-24] MEDS ORDERED: Midazolam 2mg/2ml Inj IVP PRN (06:30)
[2018-10-24] MEDS ORDERED: DiphenhydrAMINE 50mg/ml Inj IVP PRN (06:30)
[2018-10-24] MEDS: NovoLOG Insulin Flexpen SUBQ SCH ×4 (06:30→20:09)
[2018-10-24] MEDS ORDERED: Propofol 200mg/20ml IV ONE ×2 (06:35→09:50)
[2018-10-24] MEDS ORDERED: NS 55ml IV ONE (06:35)
[2018-10-24] MEDS ORDERED: Lidocaine 1% MPF 10mg/ml 5ml ONE (06:35)
--- NOTE | 2018-10-24 06:49 | Anethesia Preoperative Eval ---
Anesthesia Pre-op PMH/ROS General Date of Evaluation: Oct 24, 2018 Time of Evaluation: 06:21 Anesthesiologist: tanesha ASA Score: ASA 4 Mallampati Score Class I : Soft palate, uvula, fauces, pillars visible Class II: Soft palate, uvula, fauces visible Class III: Soft palate, base of uvula visible Class IV: Only hard plate visible Mallampati Classification: Class IV Surgeon: jay Diagnosis: anemia Surgical Procedure: egd Anesthesia History: none Family History: no anesthesia problems Allergies: Coded Allergies: NO KNOWN ALLERGIES (Unverified Allergy, Unknown, 10/15/15) Medications: see eMAR Patient NPO?: Yes Past Medical History Cardiovascular: Reports: HTN, CAD, [place], other - chf, pacemaker, hypercholesterolemia, Pulmonary: Reports: asthma, COPD Gastrointestinal/Genitourinary: Reports: ESRD Neurologic/Psychiatric: Reports: other - peripheral neuropathy, retinopathy, tremors, vertigo, headaches, weakness Endocrine: Reports: DM HEENT: Reports: other - blindness, Hematology/Immune: Reports: anemia, other - hiv, Musculoskeletal/Integumentary: Reports: OA Other: obesity PSxH Narrative: cardiac stents, hysterectomy, oopherectomy, av shunt rue, Anesthesia Pre-op Phys. Exam Physician Exam Last Vital Signs Date Time Temp Pulse Resp B/P (MAP) Pulse Ox O2 Delivery O2 Flow Rate FiO2 10/24/18 04:00 71 10/24/18 04:00 97.7 20 144/69 (94) 99 10/23/18 21:00 Nasal Cannula 2.0 10/23/18 19:54 28 Constitutional: NAD Neurologic: CN 2-12 intact Cardiovascular: RRR Respiratory: CTA Gastrointestinal: S/NT/ND Airway Exam Mallampati Score: Class IV MO: limited Neck: short TMD: 1fb ROM: limited Teeth: missing Anesthesia Pre-op A/P Labs Hematology Test 10/23/18 08:07 10/24/18 05:58 White Blood Count 8.5 K/UL (4.8-10.8) Pending Red Blood Count 2.53 M/UL (4.20-5.40) L Pending Hemoglobin 5.8 G/DL (12.0-16.0) *L Pending Hematocrit 19.5 % (37.0-47.0) L Pending Mean Corpuscular Volume 77 FL (80-99) L Pending Mean Corpuscular Hemoglobin 23.1 PG (27.0-31.0) L Pending Mean Corpuscular Hemoglobin Concent 29.9 G/DL (32.0-36.0) L Pending Red Cell Distribution Width 18.9 % (11.6-14.8) H Pending Platelet Count 198 K/UL (150-450) Pending Mean Platelet Volume 6.7 FL (6.5-10.1) Pending Neutrophils (%) (Auto) % (45.0-75.0) Pending Lymphocytes (%) (Auto) % (20.0-45.0) Pending Monocytes (%) (Auto) % (1.0-10.0) Pending Eosinophils (%) (Auto) % (0.0-3.0) Pending Basophils (%) (Auto) % (0.0-2.0) Pending Differential Total Cells Counted 100 Neutrophils % (Manual) 62 % (45-75) Lymphocytes % (Manual) 16 % (20-45) L Monocytes % (Manual) 12 % (1-10) H Eosinophils % (Manual) 10 % (0-3) H Basophils % (Manual) 0 % (0-2) Band Neutrophils 0 % (0-8) Platelet Estimate Adequate Platelet Morphology Normal Basophilic Stippling 1+ Anisocytosis 1+ Ovalocytes 1+ Reticulocyte Count 3.8 % (0.0-2.0) H Coagulation Test 10/23/18 08:07 10/24/18 05:58 Prothrombin Time 12.6 SEC (9.30-11.50) H Pending Prothromb Time International Ratio 1.2 (0.9-1.1) H Pending Activated Partial Thromboplast Time 30 SEC (23-33) Pending Chemistry Test 10/23/18 08:07 10/24/18 05:58 Sodium Level 134 MMOL/L (136-145) L 135 MMOL/L (136-145) L Potassium Level 5.6 MMOL/L (3.5-5.1) H 5.5 MMOL/L (3.5-5.1) H Chloride Level 96 MMOL/L (98-107) L 98 MMOL/L (98-107) Carbon Dioxide Level 26 MMOL/L (21-32) 26 MMOL/L (21-32) Anion Gap 12 mmol/L (5-15) 11 mmol/L (5-15) Blood Urea Nitrogen 65 mg/dL (7-18) H 55 mg/dL (7-18) H Creatinine 10.1 MG/DL (0.55-1.30) H 9.3 MG/DL (0.55-1.30) H Estimat Glomerular Filtration Rate 4.7 mL/min (>60) 5.2 mL/min (>60) Glucose Level 66 MG/DL (74-106) #L 125 MG/DL (74-106) H Hemoglobin A1c 7.0 % (4.3-6.0) H Calcium Level 8.9 MG/DL (8.5-10.1) 8.8 MG/DL (8.5-10.1) Iron Level 55 ug/dL (50-175) Total Iron Binding Capacity 197 ug/dL (250-450) L Percent Iron Saturation 28 % (15-50) Unsaturated Iron Binding 142 ug/dL (112-346) Ferritin > 2000 NG/ML (8-388) H Total Bilirubin 0.5 MG/DL (0.2-1.0) Aspartate Amino Transf (AST/SGOT) 23 U/L (15-37) Alanine Aminotransferase (ALT/SGPT) 16 U/L (12-78) Alkaline Phosphatase 158 U/L (46-116) H Total Protein 8.4 G/DL (6.4-8.2) H Albumin 3.8 G/DL (3.4-5.0) Globulin 4.6 g/dL Albumin/Globulin Ratio 0.8 (1.0-2.7) L Triglycerides Level 52 MG/DL (30-150) Cholesterol Level 79 MG/DL (< 200) LDL Cholesterol 38 mg/dL (<100) HDL Cholesterol 46 MG/DL (40-60) Cholesterol/HDL Ratio 1.7 (3.3-4.4) L Carcinoembryonic Antigen Pending Vitamin B12 Level 1099 PG/ML (193-986) H Folate 34.4 NG/ML (8.6-58.9) Thyroid Stimulating Hormone (TSH) 1.053 uiU/mL (0.358-3.740) Free Thyroxine 1.15 NG/DL (0.76-1.46) Magnesium Level 2.9 MG/DL (1.8-2.4) H Risk Assessment & Plan Assessment: asa4, patient is hyperkalemic (5.5). had additional dialysis last night. patient is optimized Plan: mac Status Change Before Surgery: No Pre-Antibiotics Drug: Loida Leung MD Oct 24, 2018 06:49
[2018-10-24] MEDS ORDERED: NS 500ML IVPB ONE (07:00)
--- NOTE | 2018-10-24 07:02 | Pre-Procedure Note/Attestation ---
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 I attest that, if there was a reasonable possibility of needing a blood transfusion, the patient (or the patient's legal sales representative printing supplies) was given the [facility] standardized written summary, pursuant to the Benji Kandi Blood Safety Act ([place] Health and Safety Code # 1645, as amended). I attest that I re-evaluated the patient just prior to the surgery and that there has been no change in the patient's H&P, except as documented below: Jamison Garcia MD Oct 24, 2018 07:02
--- NOTE | 2018-10-24 07:03 | General Progress Note ---
Assessment/Plan Status: stable Assessment/Plan # Anemia of chronic disease due to underlying chronic medical issues, multifactorial. 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 --> Hgb remains low at 6.5 --> Prior anemia w/u has been reviewed. Ferritin >2000 --> No evidence of hemolysis is noted, peripheral smear has been reviewed. --> Hgb goal >7. Transfuse prn. --> EGD 10/24 # Anemia of chronic kidney disease. 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 # End-stage renal disease on hemodialysis. --> The patient is on hemodialysis due to mild shortness of breath and mild hyperkalemia. # Mild hyperkalemia, potassium 6.2 on admission --> The patient has been treated medically in the emergency room. --> The patient was dialyzed for 3-1/2 hours on a 2 potassium bath. # Hypertension. Adjust medications as appropriate. # Diabetes mellitus per primary care physician. --> Cont on insulin --> Cont to monitor BS levels : GREATLY APPRECIATE CONSULTATION. Subjective Date patient seen: Oct 24, 2018 Hematologic/Lymphatic: Reports: anemia Allergies: Coded Allergies: NO KNOWN ALLERGIES (Unverified Allergy, Unknown, 10/15/15) All Systems: reviewed and negative except above Subjective EGD scheduled for today. Hgb remains low at 6.5. VS stable. Objective Last 24 Hour Vital Signs Date Time Temp Pulse Resp B/P (MAP) Pulse Ox O2 Delivery O2 Flow Rate FiO2 10/24/18 04:00 71 10/24/18 04:00 97.7 71 20 144/69 (94) 99 10/24/18 00:00 66 10/24/18 00:00 98.0 59 20 117/60 (79) 97 10/23/18 21:00 Nasal Cannula 2.0 10/23/18 20:00 46 10/23/18 20:00 98.0 46 20 131/75 (93) 97 10/23/18 19:54 53 18 Nasal Cannula 2.0 28 10/23/18 16:14 97.0 10/23/18 16:00 84 10/23/18 16:00 97.3 59 23 132/73 (92) 98 10/23/18 12:00 97.0 66 23 153/79 (103) 99 10/23/18 12:00 62 10/23/18 09:00 Nasal Cannula 2.0 10/23/18 08:39 186/98 10/23/18 08:35 97.2 74 22 186/98 (127) 96 10/23/18 08:00 77 Intake and Output 10/23/18 10/24/18 19:00 07:00 # Voids 5 # Bowel Movements 1 Laboratory Tests 10/23/18 08:07: White Blood Count 8.5, Red Blood Count 2.53L, Hemoglobin 5.8*L, Hematocrit 19.5L , Mean Corpuscular Volume 77L, Mean Corpuscular Hemoglobin 23.1L, Mean Corpuscular Hemoglobin Concent 29.9L, Red Cell Distribution Width 18.9H, Platelet Count 198, Mean Platelet Volume 6.7, Neutrophils (%) (Auto) , Lymphocytes (%) (Auto) , Monocytes (%) (Auto) , Eosinophils (%) (Auto) , Basophils (%) (Auto) , Differential Total Cells Counted 100, Neutrophils % ( Manual) 62, Lymphocytes % (Manual) 16L, Monocytes % (Manual) 12H, Eosinophils % (Manual) 10H, Basophils % (Manual) 0, Band Neutrophils 0, Platelet Estimate Adequate, Platelet Morphology Normal, Basophilic Stippling 1+, Anisocytosis 1+, Ovalocytes 1+, Reticulocyte Count 3.8H, Prothrombin Time 12.6H, Prothromb Time International Ratio 1.2H, Activated Partial Thromboplast Time 30, Sodium Level 134L, Potassium Level 5.6H, Chloride Level 96L, Carbon Dioxide Level 26, Anion Gap 12, Blood Urea Nitrogen 65H, Creatinine 10.1H, Estimat Glomerular Filtration Rate 4.7, Glucose Level 66#L, Hemoglobin A1c 7.0H, Calcium Level 8.9 , Iron Level 55, Total Iron Binding Capacity 197L, Percent Iron Saturation 28, Unsaturated Iron Binding 142, Ferritin > 2000H, Total Bilirubin 0.5, Aspartate Amino Transf (AST/SGOT) 23, Alanine Aminotransferase (ALT/SGPT) 16, Alkaline Phosphatase 158H, Total Protein 8.4H, Albumin 3.8, Globulin 4.6, Albumin/ Globulin Ratio 0.8L, Triglycerides Level 52, Cholesterol Level 79, LDL Cholesterol 38, HDL Cholesterol 46, Cholesterol/HDL Ratio 1.7L, Carcinoembryonic Antigen [Pending], Vitamin B12 Level 1099H, Folate 34.4, Thyroid Stimulating Hormone (TSH) 1.053, Free Thyroxine 1.15 10/24/18 03:15: Stool Occult Blood [Pending] 10/24/18 05:58: White Blood Count 9.0, Red Blood Count 2.71L, Hemoglobin 6.5*L, Hematocrit 21.3L , Mean Corpuscular Volume 79L, Mean Corpuscular Hemoglobin 23.8L, Mean Corpuscular Hemoglobin Concent 30.3L, Red Cell Distribution Width 19.0H, Platelet Count 178, Mean Platelet Volume 6.8, Neutrophils (%) (Auto) , Lymphocytes (%) (Auto) , Monocytes (%) (Auto) , Eosinophils (%) (Auto) , Basophils (%) (Auto) , Neutrophils % (Manual) [Pending], Lymphocytes % (Manual) [Pending], Platelet Estimate [Pending], Platelet Morphology [Pending], Prothrombin Time 12.7H, Prothromb Time International Ratio 1.2H, Activated Partial Thromboplast Time 32, Sodium Level 135L, Potassium Level 5.5H, Chloride Level 98, Carbon Dioxide Level 26, Anion Gap 11, Blood Urea Nitrogen 55H, Creatinine 9.3H, Estimat Glomerular Filtration Rate 5.2, Glucose Level 125H, Calcium Level 8.8, Magnesium Level 2.9H Height (Feet): 5 Height (Inches): 5.00 Weight (Pounds): 152 Objective PHYSICAL EXAMINATION: VITAL SIGNS: Have been reviewed. GENERAL: The patient awake, alert, in mild distress. HEENT: Extraocular muscles intact. No lymphadenopathy noted. CARDIOVASCULAR: S1 and S2. No rubs or gallops. PULMONARY: Clear to auscultation bilaterally. No rales, rhonchi or wheezes. ABDOMINAL: Obese, nondistended and nontender. EXTREMITIES: A 2+ pitting edema. Malick Lizama MD Oct 24, 2018 07:03
--- NOTE | 2018-10-24 07:57 | Immediate Post-Op Evaluation ---
Immediate Post-Op Evalulation Immediate Post-Op Evalulation Procedure: egd w/bx Date of Evaluation: Oct 24, 2018 Time of Evaluation: 07:37 IV Fluids: 50ml 0.9ns Blood Products: none Estimated Blood Loss: negligible Blood Pressure Systolic: 179 Blood Pressure Diastolic: 77 Pulse Rate: 72 Respiratory Rate: 18 O2 Sat by Pulse Oximetry: 100 Temperature (Fahrenheit): 97.0 Pain Score (1-10): 0 Nausea: No Vomiting: No Complications none Patient Status: awake, reacts, patent Hydration Status: adequate Drug: Loida Leung MD Oct 24, 2018 07:57
--- NOTE | 2018-10-24 07:59 | 48 Hour Post Anesthesia Eval ---
Post Anesthesia Evaluation Procedure: egd w/bx Date of Evaluation: Oct 24, 2018 Time of Evaluation: 07:39 Blood Pressure Systolic: 172 0: 79 Pulse Rate: 72 Respiratory Rate: 18 Temperature (Fahrenheit): 97.0 O2 Sat by Pulse Oximetry: 100 Airway: patent Nausea: No Vomiting: No Pain Intensity: 0 Hydration Status: adequate Cardiopulmonary Status: stable Mental Status/LOC: patient returned to baseline Post-Anesthesia Complications: none Follow-up care needed: N/A Loida King MD Oct 24, 2018 07:58
--- NOTE | 2018-10-24 08:29 | Nephrology Progress Note ---
Assessment/Plan Assessment/Plan A/P 1) ESRD- HD TTS - HD today with low K+ bath 2) Hyperk+ - HD today again - recurrent due to poss GI bleed 3) Anemia- EGD today. Patient on EPO and does not accept blood products 4) HTN- stable Subjective Date patient seen: Oct 24, 2018 Time patient seen: 08:28 ROS Limited/Unobtainable: No Constitutional: Reports: weakness Allergies: Coded Allergies: NO KNOWN ALLERGIES (Unverified Allergy, Unknown, 10/15/15) Subjective Patient feeling better. Breathing improved but K+ still little elevated Objective Last 24 Hour Vital Signs Date Time Temp Pulse Resp B/P (MAP) Pulse Ox O2 Delivery O2 Flow Rate FiO2 10/24/18 07:58 72 18 100 10/24/18 07:57 72 18 100 10/24/18 07:45 97.0 68 18 175/87 100 Nasal Cannula 3 10/24/18 07:40 64 17 179/69 100 Nasal Cannula 3 10/24/18 07:30 70 15 172/79 100 Nasal Cannula 3 10/24/18 07:25 97.0 72 18 179/77 100 Nasal Cannula 3 10/24/18 04:00 71 10/24/18 04:00 97.7 71 20 144/69 (94) 99 10/24/18 00:00 66 10/24/18 00:00 98.0 59 20 117/60 (79) 97 10/23/18 21:00 Nasal Cannula 2.0 10/23/18 20:00 46 10/23/18 20:00 98.0 46 20 131/75 (93) 97 10/23/18 19:54 53 18 Nasal Cannula 2.0 28 10/23/18 16:14 97.0 10/23/18 16:00 84 10/23/18 16:00 97.3 59 23 132/73 (92) 98 10/23/18 12:00 97.0 66 23 153/79 (103) 99 10/23/18 12:00 62 10/23/18 09:00 Nasal Cannula 2.0 10/23/18 08:39 186/98 10/23/18 08:35 97.2 74 22 186/98 (127) 96 Intake and Output 10/23/18 10/24/18 18:59 06:59 Output Total 4500 ml Balance -4500 ml Hemodialysis UF 4500 ml # Voids 5 # Bowel Movements 1 1 Laboratory Tests 10/24/18 03:15: Stool Occult Blood [Pending] 10/24/18 05:58: White Blood Count 9.0, Red Blood Count 2.71L, Hemoglobin 6.5*L, Hematocrit 21.3L , Mean Corpuscular Volume 79L, Mean Corpuscular Hemoglobin 23.8L, Mean Corpuscular Hemoglobin Concent 30.3L, Red Cell Distribution Width 19.0H, Platelet Count 178, Mean Platelet Volume 6.8, Neutrophils (%) (Auto) , Lymphocytes (%) (Auto) , Monocytes (%) (Auto) , Eosinophils (%) (Auto) , Basophils (%) (Auto) , Neutrophils % (Manual) [Pending], Lymphocytes % (Manual) [Pending], Platelet Estimate [Pending], Platelet Morphology [Pending], Prothrombin Time 12.7H, Prothromb Time International Ratio 1.2H, Activated Partial Thromboplast Time 32, Sodium Level 135L, Potassium Level 5.5H, Chloride Level 98, Carbon Dioxide Level 26, Anion Gap 11, Blood Urea Nitrogen 55H, Creatinine 9.3H, Estimat Glomerular Filtration Rate 5.2, Glucose Level 125H, Calcium Level 8.8, Magnesium Level 2.9H Height (Feet): 5 Height (Inches): 5.00 Weight (Pounds): 151 General Appearance: no apparent distress, alert EENT: normal ENT inspection Neck: normal alignment, supple Cardiovascular: normal rate, regular rhythm Respiratory/Chest: lungs clear, normal breath sounds Abdomen: non tender, soft Edema: 1+ Arm (L), 1+ Arm (R), 1+ Leg (L), 1+ Leg (R), 1+ Pedal (L), 1+ Pedal ( R), 1+ Generalized Nirmal Manley MD Oct 24, 2018 08:29
[2018-10-24] MEDS: Heparin 5000 units/ml inj SUBQ SCH ×2 (09:00→21:00)
[2018-10-24] MEDS: Allopurinol 100mg Tab ORAL SCH (09:24)
[2018-10-24] MEDS: Calcium Acetate 667mg Tab ORAL SCH (09:24)
[2018-10-24] MEDS: Morphine Sulfate 2mg/ml Inj IVP PRN ×3 (10:40→20:06)
[2018-10-24] MEDS ORDERED: Vancomycin 1.5 GM/D5W 250ML IVPB ONE (12:30)
--- NOTE | 2018-10-24 12:49 | Pulmonology Progress Note ---
Assessment/Plan Problems: (1) Acute respiratory failure (2) End stage renal disease on dialysis (3) Uncontrolled diabetes mellitus (4) Hypertension (5) UTI (urinary tract infection) (6) Morbid obesity Assessment/Plan doing better all reviewed respiratory treatment titrate fio2 to sat of 92% check sputum check urine cultures iv abx as per ID sliding scale insulin coverage. Subjective Interval Events: late note for 10/23, doing better no, sob Allergies: Coded Allergies: NO KNOWN ALLERGIES (Unverified Allergy, Unknown, 10/15/15) Objective Last 24 Hour Vital Signs Date Time Temp Pulse Resp B/P (MAP) Pulse Ox O2 Delivery O2 Flow Rate FiO2 10/24/18 12:00 97.6 74 20 115/53 (73) 97 10/24/18 11:10 97.7 10/24/18 09:00 74 115/53 10/24/18 08:00 97.7 70 20 143/99 (114) 100 10/24/18 07:58 72 18 100 10/24/18 07:57 72 18 100 10/24/18 07:45 97.0 68 18 175/87 100 Nasal Cannula 3 10/24/18 07:40 64 17 179/69 100 Nasal Cannula 3 10/24/18 07:30 70 15 172/79 100 Nasal Cannula 3 10/24/18 07:25 97.0 72 18 179/77 100 Nasal Cannula 3 10/24/18 04:00 71 10/24/18 04:00 97.7 71 20 144/69 (94) 99 10/24/18 00:00 66 10/24/18 00:00 98.0 59 20 117/60 (79) 97 10/23/18 21:00 Nasal Cannula 2.0 10/23/18 20:00 46 10/23/18 20:00 98.0 46 20 131/75 (93) 97 10/23/18 19:54 53 18 Nasal Cannula 2.0 28 10/23/18 16:00 84 10/23/18 16:00 97.3 59 23 132/73 (92) 98 Intake and Output 10/23/18 10/24/18 18:59 06:59 Output Total 4500 ml Balance -4500 ml Hemodialysis UF 4500 ml # Voids 5 # Bowel Movements 1 1 General Appearance: WD/WN HEENT: normocephalic, atraumatic Respiratory/Chest: chest wall non-tender, lungs clear Breasts: no masses Cardiovascular: normal peripheral pulses, normal rate Abdomen: normal bowel sounds, soft, non tender Genitourinary: normal external genitalia Skin: no rash 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 Complete 10/22/18 14:43 Rectum - Final NO CARBAPENEM-RESISTANT ENTEROBACTERI... Complete Laboratory Tests 10/24/18 03:15: Stool Occult Blood Negative 10/24/18 05:58: White Blood Count 9.0, Red Blood Count 2.71L, Hemoglobin 6.5*L, Hematocrit 21.3L , Mean Corpuscular Volume 79L, Mean Corpuscular Hemoglobin 23.8L, Mean Corpuscular Hemoglobin Concent 30.3L, Red Cell Distribution Width 19.0H, Platelet Count 178, Mean Platelet Volume 6.8, Neutrophils (%) (Auto) , Lymphocytes (%) (Auto) , Monocytes (%) (Auto) , Eosinophils (%) (Auto) , Basophils (%) (Auto) , Differential Total Cells Counted 100, Neutrophils % ( Manual) 73, Lymphocytes % (Manual) 18L, Monocytes % (Manual) 6, Eosinophils % ( Manual) 2, Basophils % (Manual) 1, Band Neutrophils 0, Platelet Estimate Adequate, Platelet Morphology Normal, Polychromasia 1+, Hypochromasia 2+, Anisocytosis 2+, Prothrombin Time 12.7H, Prothromb Time International Ratio 1.2H , Activated Partial Thromboplast Time 32, Sodium Level 135L, Potassium Level 5.5H, Chloride Level 98, Carbon Dioxide Level 26, Anion Gap 11, Blood Urea Nitrogen 55H, Creatinine 9.3H, Estimat Glomerular Filtration Rate 5.2, Glucose Level 125H, Calcium Level 8.8, Magnesium Level 2.9H Current Medications Medications (Trade) Dose Ordered Sig/Josi Route PRN Reason Start Time Stop Time Status Last Admin Dose Admin Acetaminophen (Tylenol) 650 mg Q4H PRN ORAL fever 10/22/18 13:28 11/21/18 13:27 Al Hydroxide/Mg Hydroxide (Mylanta) 15 ml Q1H PRN ORAL gi upset 10/24/18 06:30 10/24/18 15:00 Albuterol/ Ipratropium (Albuterol/ Ipratropium) 3 ml Q6H PRN HHN dyspnea 10/22/18 13:30 10/27/18 13:29 Allopurinol (Zyloprim) 100 mg DAILY ORAL 10/23/18 09:00 11/22/18 08:59 10/24/18 09:24 Amlodipine Besylate (Norvasc) 10 mg DAILY ORAL 10/24/18 09:00 11/23/18 08:59 Atorvastatin Calcium (Lipitor) 20 mg BEDTIME ORAL 10/22/18 21:00 11/21/18 20:59 10/23/18 22:32 Atropine Sulfate (Atropine) 0.5 mg Q5M PRN IV bpm less than 45 10/24/18 06:30 10/24/18 15:00 Calcium Acetate (Phoslo) 667 mg DAILY ORAL 10/23/18 09:00 11/22/18 08:59 10/24/18 09:24 Clonidine HCl (Catapres Tab) 0.1 mg Q4H PRN ORAL For High Blood Pressure 10/22/18 13:30 11/21/18 13:29 10/23/18 08:39 Dextrose (Dextrose 50%) 25 ml Q30M PRN IV Hypoglycemia 10/22/18 13:45 11/21/18 13:30 Dextrose (Dextrose 50%) 50 ml Q30M PRN IV hypoglycemia 10/22/18 13:45 11/21/18 13:44 10/23/18 11:41 Diphenhydramine HCl (Benadryl) 25 mg Q15M PRN IVP Itching 10/24/18 06:30 10/24/18 15:00 Epoetin Jose De Jesus (Procrit (for ESRD on dialysis)) 10,000 units SUN-SUN-SUN SUBQ 10/23/18 21:00 11/22/18 20:59 10/23/18 22:33 Fentanyl Citrate (Sublimaze 100 mcg/2 mL) 25 mcg Q10M PRN IV Moderate Pain (Pain Scale 4-6) 10/24/18 06:30 10/24/18 15:00 Heparin Sodium (Porcine) (Heparin 5000 units/ml) 5,000 units EVERY 12 HOURS SUBQ 10/22/18 21:00 11/21/18 20:59 Hydralazine HCl (Apresoline) 5 mg Q30M PRN IV SBP>160 OR___/DBP>90 OR___ 10/24/18 06:30 10/24/18 15:00 Insulin Aspart (NovoLOG) BEFORE MEALS AND HS SUBQ 10/22/18 16:30 11/21/18 16:29 10/23/18 22:36 Midazolam HCl (Versed 2mg/2ml vial) 1 mg Q15M PRN IVP For Anxiety 10/24/18 06:30 10/24/18 15:00 Morphine Sulfate (Morphine Sulfate) 1 mg Q4H PRN IVP For Pain 10/22/18 13:30 10/29/18 13:29 10/24/18 10:40 Ondansetron HCl (Zofran) 4 mg Q1H PRN IVP Nausea & Vomiting 10/24/18 06:30 10/24/18 15:00 Ondansetron HCl (Zofran) 4 mg Q6H PRN IVP Nausea & Vomiting 10/22/18 13:30 11/21/18 13:29 10/23/18 17:59 Sevelamer Carbonate (Renvela) 800 mg THREE TIMES A DAY ORAL 10/22/18 18:00 11/21/18 17:59 10/24/18 09:24 Vancomycin HCl (Vanco rx to dose) 1 ea DAILY PRN MISC Per rx protocol 10/24/18 11:15 11/23/18 11:14 Vancomycin HCl/ Dextrose 250 ml @ 125 mls/hr ONCE ONCE IVPB 10/24/18 12:30 10/24/18 14:29 Zolpidem Tartrate (Ambien) 5 mg HSPRN PRN ORAL Insomnia 10/22/18 13:30 10/29/18 13:29 Meghana Murillo MD Oct 24, 2018 12:49
--- NOTE | 2018-10-24 12:51 | Pulmonology Progress Note ---
Assessment/Plan Problems: (1) Acute respiratory failure (2) End stage renal disease on dialysis (3) Bacteremia (4) Morbid obesity (5) Hypertension (6) Uncontrolled diabetes mellitus (7) UTI (urinary tract infection) Assessment/Plan BC positive ID will see, on Vancomycin all reviewed respiratory treatment titrate fio2 to sat of 92% check sputum check urine cultures iv abx as per ID sliding scale insulin coverage. Subjective ROS Limited/Unobtainable: Yes Allergies: Coded Allergies: NO KNOWN ALLERGIES (Unverified Allergy, Unknown, 10/15/15) Objective Last 24 Hour Vital Signs Date Time Temp Pulse Resp B/P (MAP) Pulse Ox O2 Delivery O2 Flow Rate FiO2 10/24/18 12:00 97.6 74 20 115/53 (73) 97 10/24/18 11:10 97.7 10/24/18 09:00 74 115/53 10/24/18 08:00 97.7 70 20 143/99 (114) 100 10/24/18 07:58 72 18 100 10/24/18 07:57 72 18 100 10/24/18 07:45 97.0 68 18 175/87 100 Nasal Cannula 3 10/24/18 07:40 64 17 179/69 100 Nasal Cannula 3 10/24/18 07:30 70 15 172/79 100 Nasal Cannula 3 10/24/18 07:25 97.0 72 18 179/77 100 Nasal Cannula 3 10/24/18 04:00 71 10/24/18 04:00 97.7 71 20 144/69 (94) 99 10/24/18 00:00 66 10/24/18 00:00 98.0 59 20 117/60 (79) 97 10/23/18 21:00 Nasal Cannula 2.0 10/23/18 20:00 46 10/23/18 20:00 98.0 46 20 131/75 (93) 97 10/23/18 19:54 53 18 Nasal Cannula 2.0 28 10/23/18 16:00 84 10/23/18 16:00 97.3 59 23 132/73 (92) 98 Intake and Output 10/23/18 10/24/18 18:59 06:59 Output Total 4500 ml Balance -4500 ml Hemodialysis UF 4500 ml # Voids 5 # Bowel Movements 1 1 General Appearance: WD/WN HEENT: normocephalic, atraumatic Respiratory/Chest: chest wall non-tender, normal breath sounds Cardiovascular: normal peripheral pulses, normal rate, regular rhythm Abdomen: normal bowel sounds, no organomegaly Genitourinary: normal external genitalia Extremities: no clubbing Skin: no lesions Microbiology Date/Time Source Procedure Growth Status 10/22/18 11:30 Blood Blood Culture - Preliminary NO GROWTH AFTER 24 HOURS Resulted 10/22/18 11:30 Blood Blood Culture - Preliminary Resulted 10/22/18 10:30 Nose Influenza Types A,B Antigen (ENRIQUETA) - Final Complete 10/22/18 10:45 Urine,Clean Catch Urine Culture - Preliminary NO GROWTH AFTER 24 HOURS Resulted 10/22/18 14:43 Rectum VRE Culture - Final NO VANCOMYCIN RESISTANT ENTEROCOCCUS ... Complete 10/22/18 14:43 Rectum - Final NO CARBAPENEM-RESISTANT ENTEROBACTERI... Complete Laboratory Tests 10/24/18 03:15: Stool Occult Blood Negative 10/24/18 05:58: White Blood Count 9.0, Red Blood Count 2.71L, Hemoglobin 6.5*L, Hematocrit 21.3L , Mean Corpuscular Volume 79L, Mean Corpuscular Hemoglobin 23.8L, Mean Corpuscular Hemoglobin Concent 30.3L, Red Cell Distribution Width 19.0H, Platelet Count 178, Mean Platelet Volume 6.8, Neutrophils (%) (Auto) , Lymphocytes (%) (Auto) , Monocytes (%) (Auto) , Eosinophils (%) (Auto) , Basophils (%) (Auto) , Differential Total Cells Counted 100, Neutrophils % ( Manual) 73, Lymphocytes % (Manual) 18L, Monocytes % (Manual) 6, Eosinophils % ( Manual) 2, Basophils % (Manual) 1, Band Neutrophils 0, Platelet Estimate Adequate, Platelet Morphology Normal, Polychromasia 1+, Hypochromasia 2+, Anisocytosis 2+, Prothrombin Time 12.7H, Prothromb Time International Ratio 1.2H , Activated Partial Thromboplast Time 32, Sodium Level 135L, Potassium Level 5.5H, Chloride Level 98, Carbon Dioxide Level 26, Anion Gap 11, Blood Urea Nitrogen 55H, Creatinine 9.3H, Estimat Glomerular Filtration Rate 5.2, Glucose Level 125H, Calcium Level 8.8, Magnesium Level 2.9H Current Medications Medications (Trade) Dose Ordered Sig/Josi Route PRN Reason Start Time Stop Time Status Last Admin Dose Admin Acetaminophen (Tylenol) 650 mg Q4H PRN ORAL fever 10/22/18 13:28 11/21/18 13:27 Al Hydroxide/Mg Hydroxide (Mylanta) 15 ml Q1H PRN ORAL gi upset 10/24/18 06:30 10/24/18 15:00 Albuterol/ Ipratropium (Albuterol/ Ipratropium) 3 ml Q6H PRN HHN dyspnea 10/22/18 13:30 10/27/18 13:29 Allopurinol (Zyloprim) 100 mg DAILY ORAL 10/23/18 09:00 11/22/18 08:59 10/24/18 09:24 Amlodipine Besylate (Norvasc) 10 mg DAILY ORAL 10/24/18 09:00 11/23/18 08:59 Atorvastatin Calcium (Lipitor) 20 mg BEDTIME ORAL 10/22/18 21:00 11/21/18 20:59 10/23/18 22:32 Atropine Sulfate (Atropine) 0.5 mg Q5M PRN IV bpm less than 45 10/24/18 06:30 10/24/18 15:00 Calcium Acetate (Phoslo) 667 mg DAILY ORAL 10/23/18 09:00 11/22/18 08:59 10/24/18 09:24 Clonidine HCl (Catapres Tab) 0.1 mg Q4H PRN ORAL For High Blood Pressure 10/22/18 13:30 11/21/18 13:29 10/23/18 08:39 Dextrose (Dextrose 50%) 25 ml Q30M PRN IV Hypoglycemia 10/22/18 13:45 11/21/18 13:30 Dextrose (Dextrose 50%) 50 ml Q30M PRN IV hypoglycemia 10/22/18 13:45 11/21/18 13:44 10/23/18 11:41 Diphenhydramine HCl (Benadryl) 25 mg Q15M PRN IVP Itching 10/24/18 06:30 10/24/18 15:00 Epoetin Jose De Jesus (Procrit (for ESRD on dialysis)) 10,000 units SUN-SUN-SUN SUBQ 10/23/18 21:00 11/22/18 20:59 10/23/18 22:33 Fentanyl Citrate (Sublimaze 100 mcg/2 mL) 25 mcg Q10M PRN IV Moderate Pain (Pain Scale 4-6) 10/24/18 06:30 10/24/18 15:00 Heparin Sodium (Porcine) (Heparin 5000 units/ml) 5,000 units EVERY 12 HOURS SUBQ 10/22/18 21:00 11/21/18 20:59 Hydralazine HCl (Apresoline) 5 mg Q30M PRN IV SBP>160 OR___/DBP>90 OR___ 10/24/18 06:30 10/24/18 15:00 Insulin Aspart (NovoLOG) BEFORE MEALS AND HS SUBQ 10/22/18 16:30 11/21/18 16:29 10/23/18 22:36 Midazolam HCl (Versed 2mg/2ml vial) 1 mg Q15M PRN IVP For Anxiety 10/24/18 06:30 10/24/18 15:00 Morphine Sulfate (Morphine Sulfate) 1 mg Q4H PRN IVP For Pain 10/22/18 13:30 10/29/18 13:29 10/24/18 10:40 Ondansetron HCl (Zofran) 4 mg Q1H PRN IVP Nausea & Vomiting 10/24/18 06:30 10/24/18 15:00 Ondansetron HCl (Zofran) 4 mg Q6H PRN IVP Nausea & Vomiting 10/22/18 13:30 11/21/18 13:29 10/23/18 17:59 Sevelamer Carbonate (Renvela) 800 mg THREE TIMES A DAY ORAL 10/22/18 18:00 11/21/18 17:59 10/24/18 09:24 Vancomycin HCl (Vanco rx to dose) 1 ea DAILY PRN MISC Per rx protocol 10/24/18 11:15 11/23/18 11:14 Vancomycin HCl/ Dextrose 250 ml @ 125 mls/hr ONCE ONCE IVPB 10/24/18 12:30 10/24/18 14:29 Zolpidem Tartrate (Ambien) 5 mg HSPRN PRN ORAL Insomnia 10/22/18 13:30 10/29/18 13:29 Meghana Murillo MD Oct 24, 2018 12:51
--- NOTE | 2018-10-24 13:01 | Infectious Diseases Prog Note ---
Assessment/Plan Assessment/Plan Abx: Ceftriaxone x1 10/22 Assessment: Afebrile NO Leukocytosis Pyuria- no UTI symptoms -u/a wbc tntc, nitneg, leuk +3; ucx NTD Gram positive bacteremia- real vs contaminant- r/o line infection -Bcx 1/4 GPC Severe anemia Hyperkalemia SOB 2ry to CHF exacerbation -CXR: Cardiomegaly with pulmonary venous congestion -influenza sc neg ESRD on HD DM2 b/l eye blindness CHF, bradycardia 2ry hyperparathyroidism CAD s/p stent AOCD s/p AVG w recent rupture HTN morbid obesity Plan: -Start empiric IV Vancomycin for GPC bacteremia -2 sets of Bcx (central line and peripheral) -f/u cx -Monitor CBC/CMP, temperatures -aspiration precautions Thank you for this consultation. Will continue to follow along with you. Discussed with RN. Subjective Allergies: Coded Allergies: NO KNOWN ALLERGIES (Unverified Allergy, Unknown, 10/15/15) Subjective afebrile bacteremic 11/29 GPC no leukocytosis Objective Vital Signs Last 24 Hour Vital Signs Date Time Temp Pulse Resp B/P (MAP) Pulse Ox O2 Delivery O2 Flow Rate FiO2 10/24/18 12:00 97.6 74 20 115/53 (73) 97 10/24/18 11:10 97.7 10/24/18 09:00 74 115/53 10/24/18 08:00 97.7 70 20 143/99 (114) 100 10/24/18 07:58 72 18 100 10/24/18 07:57 72 18 100 10/24/18 07:45 97.0 68 18 175/87 100 Nasal Cannula 3 10/24/18 07:40 64 17 179/69 100 Nasal Cannula 3 10/24/18 07:30 70 15 172/79 100 Nasal Cannula 3 10/24/18 07:25 97.0 72 18 179/77 100 Nasal Cannula 3 10/24/18 04:00 71 10/24/18 04:00 97.7 71 20 144/69 (94) 99 10/24/18 00:00 66 10/24/18 00:00 98.0 59 20 117/60 (79) 97 10/23/18 21:00 Nasal Cannula 2.0 10/23/18 20:00 46 10/23/18 20:00 98.0 46 20 131/75 (93) 97 10/23/18 19:54 53 18 Nasal Cannula 2.0 28 10/23/18 16:00 84 10/23/18 16:00 97.3 59 23 132/73 (92) 98 Height (Feet): 5 Height (Inches): 5.00 Weight (Pounds): 151 Objective GENERAL: The patient awake, alert, in mild distress. HEENT: Extraocular muscles intact. No lymphadenopathy noted. CARDIOVASCULAR: S1 and S2. No rubs or gallops. PULMONARY: Clear to auscultation bilaterally. No rales, rhonchi or wheezes. ABDOMINAL: Obese, nondistended and nontender. EXTREMITIES: A 2+ pitting edema. Microbiology Date/Time Source Procedure Growth Status 10/22/18 11:30 Blood Blood Culture - Preliminary NO GROWTH AFTER 24 HOURS Resulted 10/22/18 11:30 Blood Blood Culture - Preliminary Resulted 10/22/18 10:30 Nose Influenza Types A,B Antigen (ENRIQUETA) - Final Complete 10/22/18 10:45 Urine,Clean Catch Urine Culture - Preliminary NO GROWTH AFTER 24 HOURS Resulted 10/22/18 14:43 Rectum VRE Culture - Final NO VANCOMYCIN RESISTANT ENTEROCOCCUS ... Complete 10/22/18 14:43 Rectum - Final NO CARBAPENEM-RESISTANT ENTEROBACTERI... Complete Laboratory Tests Test 10/24/18 03:15 10/24/18 05:58 Stool Occult Blood Negative (NEGATIVE) White Blood Count 9.0 K/UL (4.8-10.8) Red Blood Count 2.71 M/UL (4.20-5.40) L Hemoglobin 6.5 G/DL (12.0-16.0) *L Hematocrit 21.3 % (37.0-47.0) L Mean Corpuscular Volume 79 FL (80-99) L Mean Corpuscular Hemoglobin 23.8 PG (27.0-31.0) L Mean Corpuscular Hemoglobin Concent 30.3 G/DL (32.0-36.0) L Red Cell Distribution Width 19.0 % (11.6-14.8) H Platelet Count 178 K/UL (150-450) Mean Platelet Volume 6.8 FL (6.5-10.1) Neutrophils (%) (Auto) % (45.0-75.0) Lymphocytes (%) (Auto) % (20.0-45.0) Monocytes (%) (Auto) % (1.0-10.0) Eosinophils (%) (Auto) % (0.0-3.0) Basophils (%) (Auto) % (0.0-2.0) Differential Total Cells Counted 100 Neutrophils % (Manual) 73 % (45-75) Lymphocytes % (Manual) 18 % (20-45) L Monocytes % (Manual) 6 % (1-10) Eosinophils % (Manual) 2 % (0-3) Basophils % (Manual) 1 % (0-2) Band Neutrophils 0 % (0-8) Platelet Estimate Adequate Platelet Morphology Normal Polychromasia 1+ Hypochromasia 2+ Anisocytosis 2+ Prothrombin Time 12.7 SEC (9.30-11.50) H Prothromb Time International Ratio 1.2 (0.9-1.1) H Activated Partial Thromboplast Time 32 SEC (23-33) Sodium Level 135 MMOL/L (136-145) L Potassium Level 5.5 MMOL/L (3.5-5.1) H Chloride Level 98 MMOL/L (98-107) Carbon Dioxide Level 26 MMOL/L (21-32) Anion Gap 11 mmol/L (5-15) Blood Urea Nitrogen 55 mg/dL (7-18) H Creatinine 9.3 MG/DL (0.55-1.30) H Estimat Glomerular Filtration Rate 5.2 mL/min (>60) Glucose Level 125 MG/DL (74-106) H Calcium Level 8.8 MG/DL (8.5-10.1) Magnesium Level 2.9 MG/DL (1.8-2.4) H Current Medications Medications (Trade) Dose Ordered Sig/Josi Route PRN Reason Start Time Stop Time Status Last Admin Dose Admin Acetaminophen (Tylenol) 650 mg Q4H PRN ORAL fever 10/22/18 13:28 11/21/18 13:27 Al Hydroxide/Mg Hydroxide (Mylanta) 15 ml Q1H PRN ORAL gi upset 10/24/18 06:30 10/24/18 15:00 Albuterol/ Ipratropium (Albuterol/ Ipratropium) 3 ml Q6H PRN HHN dyspnea 10/22/18 13:30 10/27/18 13:29 Allopurinol (Zyloprim) 100 mg DAILY ORAL 10/23/18 09:00 11/22/18 08:59 10/24/18 09:24 Amlodipine Besylate (Norvasc) 10 mg DAILY ORAL 10/24/18 09:00 11/23/18 08:59 Atorvastatin Calcium (Lipitor) 20 mg BEDTIME ORAL 10/22/18 21:00 11/21/18 20:59 10/23/18 22:32 Atropine Sulfate (Atropine) 0.5 mg Q5M PRN IV bpm less than 45 10/24/18 06:30 10/24/18 15:00 Calcium Acetate (Phoslo) 667 mg DAILY ORAL 10/23/18 09:00 11/22/18 08:59 10/24/18 09:24 Clonidine HCl (Catapres Tab) 0.1 mg Q4H PRN ORAL For High Blood Pressure 10/22/18 13:30 11/21/18 13:29 10/23/18 08:39 Dextrose (Dextrose 50%) 25 ml Q30M PRN IV Hypoglycemia 10/22/18 13:45 11/21/18 13:30 Dextrose (Dextrose 50%) 50 ml Q30M PRN IV hypoglycemia 10/22/18 13:45 11/21/18 13:44 10/23/18 11:41 Diphenhydramine HCl (Benadryl) 25 mg Q15M PRN IVP Itching 10/24/18 06:30 10/24/18 15:00 Epoetin Jose De Jesus (Procrit (for ESRD on dialysis)) 10,000 units SUN-SUN-SUN SUBQ 10/23/18 21:00 11/22/18 20:59 10/23/18 22:33 Fentanyl Citrate (Sublimaze 100 mcg/2 mL) 25 mcg Q10M PRN IV Moderate Pain (Pain Scale 4-6) 10/24/18 06:30 10/24/18 15:00 Heparin Sodium (Porcine) (Heparin 5000 units/ml) 5,000 units EVERY 12 HOURS SUBQ 10/22/18 21:00 11/21/18 20:59 Hydralazine HCl (Apresoline) 5 mg Q30M PRN IV SBP>160 OR___/DBP>90 OR___ 10/24/18 06:30 10/24/18 15:00 Insulin Aspart (NovoLOG) BEFORE MEALS AND HS SUBQ 10/22/18 16:30 11/21/18 16:29 10/23/18 22:36 Midazolam HCl (Versed 2mg/2ml vial) 1 mg Q15M PRN IVP For Anxiety 10/24/18 06:30 10/24/18 15:00 Morphine Sulfate (Morphine Sulfate) 1 mg Q4H PRN IVP For Pain 10/22/18 13:30 10/29/18 13:29 10/24/18 10:40 Ondansetron HCl (Zofran) 4 mg Q1H PRN IVP Nausea & Vomiting 10/24/18 06:30 10/24/18 15:00 Ondansetron HCl (Zofran) 4 mg Q6H PRN IVP Nausea & Vomiting 10/22/18 13:30 11/21/18 13:29 10/23/18 17:59 Sevelamer Carbonate (Renvela) 800 mg THREE TIMES A DAY ORAL 10/22/18 18:00 11/21/18 17:59 10/24/18 09:24 Vancomycin HCl (Vanco rx to dose) 1 ea DAILY PRN MISC Per rx protocol 10/24/18 11:15 11/23/18 11:14 Vancomycin HCl/ Dextrose 250 ml @ 125 mls/hr ONCE ONCE IVPB 10/24/18 12:30 10/24/18 14:29 Zolpidem Tartrate (Ambien) 5 mg HSPRN PRN ORAL Insomnia 10/22/18 13:30 10/29/18 13:29 Susi Vanegas M.D. Oct 24, 2018 13:01
--- NOTE | 2018-10-24 13:25 | Endoscopy Procedure Note ---
Endoscopy Procedure Note General Indication for Procedure: abd pain, Anemia Procedures Performed: EGD Operative Findings/Diagnosis: gastritis Specimen: yes Pt Tolerated Procedure Well: Yes Estimated Blood Loss: none Anesthesia Anesthesiologist: tanesha Anesthesia: MAC Inserted Devices Implant(s) used?: No GI Core Measures 50 yrs or older w/o bx or poly: Not Applicable 10yrs. F/U not recommended: Not Applicable Jamison Garcia MD Oct 24, 2018 13:25
--- NOTE | 2018-10-24 14:59 | Cardiac Electrophysiology PN ---
Assessment/Plan Assessment/Plan 1. Congestive heart failure due to hypertensive heart disease and diastolic dysfunction. Echocardiogram showed EF 55%. Continue dialysis. 2. Hypertensive heart disease. On Norvasc 10 mg daily and HD. On p.r.n.clonidine. 3. End-stage renal disease, on hemodialysis. 4. Diabetes, on insulin. 5. Hyperlipidemia, on Lipitor. 6. Positive blood culture and Right toe blister. Podiatry and ID FU On Vancomycin JAE RN and Dr Henning Subjective Subjective Had HD last night. No CP or SOB. Has Right toe blister and infection.Had EGD today that showed gastritis Objective Last 24 Hour Vital Signs Date Time Temp Pulse Resp B/P (MAP) Pulse Ox O2 Delivery O2 Flow Rate FiO2 10/24/18 12:00 97.6 74 20 115/53 (73) 97 10/24/18 11:10 97.7 10/24/18 09:00 74 115/53 10/24/18 09:00 Nasal Cannula 2.0 10/24/18 08:00 97.7 70 20 143/99 (114) 100 10/24/18 07:58 72 18 100 10/24/18 07:57 72 18 100 10/24/18 07:45 97.0 68 18 175/87 100 Nasal Cannula 3 10/24/18 07:40 64 17 179/69 100 Nasal Cannula 3 10/24/18 07:30 70 15 172/79 100 Nasal Cannula 3 10/24/18 07:25 97.0 72 18 179/77 100 Nasal Cannula 3 10/24/18 04:00 71 10/24/18 04:00 97.7 71 20 144/69 (94) 99 10/24/18 00:00 66 10/24/18 00:00 98.0 59 20 117/60 (79) 97 10/23/18 21:00 Nasal Cannula 2.0 10/23/18 20:00 46 10/23/18 20:00 98.0 46 20 131/75 (93) 97 10/23/18 19:54 53 18 Nasal Cannula 2.0 28 10/23/18 16:00 84 10/23/18 16:00 97.3 59 23 132/73 (92) 98 Intake and Output 10/23/18 10/24/18 18:59 06:59 Output Total 4500 ml Balance -4500 ml Hemodialysis UF 4500 ml # Voids 5 # Bowel Movements 1 1 Laboratory Tests Test 10/24/18 03:15 10/24/18 05:58 Stool Occult Blood Negative (NEGATIVE) White Blood Count 9.0 K/UL (4.8-10.8) Red Blood Count 2.71 M/UL (4.20-5.40) L Hemoglobin 6.5 G/DL (12.0-16.0) *L Hematocrit 21.3 % (37.0-47.0) L Mean Corpuscular Volume 79 FL (80-99) L Mean Corpuscular Hemoglobin 23.8 PG (27.0-31.0) L Mean Corpuscular Hemoglobin Concent 30.3 G/DL (32.0-36.0) L Red Cell Distribution Width 19.0 % (11.6-14.8) H Platelet Count 178 K/UL (150-450) Mean Platelet Volume 6.8 FL (6.5-10.1) Neutrophils (%) (Auto) % (45.0-75.0) Lymphocytes (%) (Auto) % (20.0-45.0) Monocytes (%) (Auto) % (1.0-10.0) Eosinophils (%) (Auto) % (0.0-3.0) Basophils (%) (Auto) % (0.0-2.0) Differential Total Cells Counted 100 Neutrophils % (Manual) 73 % (45-75) Lymphocytes % (Manual) 18 % (20-45) L Monocytes % (Manual) 6 % (1-10) Eosinophils % (Manual) 2 % (0-3) Basophils % (Manual) 1 % (0-2) Band Neutrophils 0 % (0-8) Platelet Estimate Adequate Platelet Morphology Normal Polychromasia 1+ Hypochromasia 2+ Anisocytosis 2+ Prothrombin Time 12.7 SEC (9.30-11.50) H Prothromb Time International Ratio 1.2 (0.9-1.1) H Activated Partial Thromboplast Time 32 SEC (23-33) Sodium Level 135 MMOL/L (136-145) L Potassium Level 5.5 MMOL/L (3.5-5.1) H Chloride Level 98 MMOL/L (98-107) Carbon Dioxide Level 26 MMOL/L (21-32) Anion Gap 11 mmol/L (5-15) Blood Urea Nitrogen 55 mg/dL (7-18) H Creatinine 9.3 MG/DL (0.55-1.30) H Estimat Glomerular Filtration Rate 5.2 mL/min (>60) Glucose Level 125 MG/DL (74-106) H Calcium Level 8.8 MG/DL (8.5-10.1) Magnesium Level 2.9 MG/DL (1.8-2.4) H Microbiology Date/Time Source Procedure Growth Status 10/22/18 11:30 Blood Blood Culture - Preliminary NO GROWTH AFTER 24 HOURS Resulted 10/22/18 11:30 Blood Blood Culture - Preliminary Resulted 10/22/18 10:30 Nose Influenza Types A,B Antigen ([facility]) - Final Complete 10/22/18 10:45 Urine,Clean Catch Urine Culture - Preliminary NO GROWTH AFTER 24 HOURS Resulted 10/22/18 14:43 Rectum VRE Culture - Final NO VANCOMYCIN RESISTANT ENTEROCOCCUS ... Complete 10/22/18 14:43 Rectum - Final NO CARBAPENEM-RESISTANT ENTEROBACTERI... Complete Objective HEAD AND NECK: No jugular venous distention. LUNGS: Decreased breath sounds. CARDIOVASCULAR: Regular S1 and S2 with no gallop. ABDOMEN: Morbidly obese. EXTREMITIES: 1+ pitting edema.Right big toe blister Shalom Vinson MD Oct 24, 2018 14:59
--- NOTE | 2018-10-24 15:13 | General Progress Note ---
Assessment/Plan Problem List: (1) Congestive heart failure (CHF) ICD Codes: I50.9 - Heart failure, unspecified SNOMED: 06691153 (2) Anemia ICD Codes: D64.9 - Anemia, unspecified SNOMED: 027476456 Qualifiers: Qualified Codes: D64.9 - Anemia, unspecified (3) Hypertension ICD Codes: I10 - Essential (primary) hypertension SNOMED: 84066595 (4) Morbid obesity ICD Codes: E66.01 - Morbid (severe) obesity due to excess calories SNOMED: 859102835, 60439977448609 (5) End stage renal disease on dialysis ICD Codes: N18.6 - End stage renal failure on dialysis; Z99.2 - Dependence on renal dialysis SNOMED: 103688197 Status: stable, progressing Assessment/Plan ot pt diet dialysis heme f/u podiatry eval cbc bmp am Subjective Constitutional: Reports: weakness Respiratory: Reports: shortness of breath Allergies: Coded Allergies: NO KNOWN ALLERGIES (Unverified Allergy, Unknown, 10/15/15) All Systems: reviewed and negative except above Subjective o2nc sl gen pain Objective Last 24 Hour Vital Signs Date Time Temp Pulse Resp B/P (MAP) Pulse Ox O2 Delivery O2 Flow Rate FiO2 10/24/18 12:00 97.6 74 20 115/53 (73) 97 10/24/18 11:10 97.7 10/24/18 09:00 74 115/53 10/24/18 09:00 Nasal Cannula 2.0 10/24/18 08:00 97.7 70 20 143/99 (114) 100 10/24/18 07:58 72 18 100 10/24/18 07:57 72 18 100 10/24/18 07:45 97.0 68 18 175/87 100 Nasal Cannula 3 10/24/18 07:40 64 17 179/69 100 Nasal Cannula 3 10/24/18 07:30 70 15 172/79 100 Nasal Cannula 3 10/24/18 07:25 97.0 72 18 179/77 100 Nasal Cannula 3 10/24/18 04:00 71 10/24/18 04:00 97.7 71 20 144/69 (94) 99 10/24/18 00:00 66 10/24/18 00:00 98.0 59 20 117/60 (79) 97 10/23/18 21:00 Nasal Cannula 2.0 10/23/18 20:00 46 10/23/18 20:00 98.0 46 20 131/75 (93) 97 10/23/18 19:54 53 18 Nasal Cannula 2.0 28 10/23/18 16:00 84 10/23/18 16:00 97.3 59 23 132/73 (92) 98 Intake and Output 10/23/18 10/24/18 18:59 06:59 Output Total 4500 ml Balance -4500 ml Hemodialysis UF 4500 ml # Voids 5 # Bowel Movements 1 1 Laboratory Tests 10/24/18 03:15: Stool Occult Blood Negative 10/24/18 05:58: White Blood Count 9.0, Red Blood Count 2.71L, Hemoglobin 6.5*L, Hematocrit 21.3L , Mean Corpuscular Volume 79L, Mean Corpuscular Hemoglobin 23.8L, Mean Corpuscular Hemoglobin Concent 30.3L, Red Cell Distribution Width 19.0H, Platelet Count 178, Mean Platelet Volume 6.8, Neutrophils (%) (Auto) , Lymphocytes (%) (Auto) , Monocytes (%) (Auto) , Eosinophils (%) (Auto) , Basophils (%) (Auto) , Differential Total Cells Counted 100, Neutrophils % ( Manual) 73, Lymphocytes % (Manual) 18L, Monocytes % (Manual) 6, Eosinophils % ( Manual) 2, Basophils % (Manual) 1, Band Neutrophils 0, Platelet Estimate Adequate, Platelet Morphology Normal, Polychromasia 1+, Hypochromasia 2+, Anisocytosis 2+, Prothrombin Time 12.7H, Prothromb Time International Ratio 1.2H , Activated Partial Thromboplast Time 32, Sodium Level 135L, Potassium Level 5.5H, Chloride Level 98, Carbon Dioxide Level 26, Anion Gap 11, Blood Urea Nitrogen 55H, Creatinine 9.3H, Estimat Glomerular Filtration Rate 5.2, Glucose Level 125H, Calcium Level 8.8, Magnesium Level 2.9H Height (Feet): 5 Height (Inches): 5.00 Weight (Pounds): 151 General Appearance: lethargic EENT: normal ENT inspection Neck: normal alignment Cardiovascular: normal peripheral pulses, normal rate, regular rhythm Respiratory/Chest: chest wall non-tender, lungs clear, normal breath sounds Abdomen: normal bowel sounds, non tender, soft Extremities: normal inspection Edema: no edema noted Arm (L), no edema noted Arm (R), no edema noted Leg (L), no edema noted Leg (R), no edema noted Pedal (L), no edema noted Pedal (R), no edema noted Generalized Skin: normal pigmentation, warm/dry Objective sl right toe blister Roderick Henning DO Oct 24, 2018 15:13
[2018-10-24] MEDS: Ampicillin/Sulbactam Sod 3 GM in NS 110 ML IVPB SCH (18:36)
[2018-10-24] MEDS: Clindamycin 150mg cap ORAL SCH (18:36)
--- NOTE | 2018-10-24 20:30 | Procedure Note ---
DATE OF PROCEDURE: 10/24/2018 SURGEON: Jamison Garcia M.D. PROCEDURE: Upper endoscopy with biopsy. ANESTHESIA: Per Dr. Jimenez. INSTRUMENT: Olympus adult flexible upper endoscope. INDICATION: 1. Abdominal pain. 2. Anemia. The procedure, risks, benefits, and possible consequences, including hemorrhage, aspiration, perforation and infection, and alternative treatments, were explained to the patient/legal guardian by Dr. Jamison Garcia and the patient/legal guardian understood and accepted these risks. DESCRIPTION OF PROCEDURE: After informed consent was obtained and the patient was adequately sedated, Olympus upper endoscope was advanced from the mouth into the second portion of duodenum and retroflexion was performed in the stomach. The patient had evidence of retained food material in the prepyloric region. There was no evidence of any active upper GI bleeding. There was evidence of diffuse gastritis. Random biopsy from antrum was obtained to rule out H. pylori infection. The rest of upper endoscopic examination grossly within normal limits. SUMMARY OF FINDINGS: Gastritis otherwise normal endoscopic examination. RECOMMENDATIONS: Followup biopsy results and treat accordingly. I want to thank, Dr. Roderick Henning for this kind referral. Jamison Garcia M.D. DR: Abbie JOB#: [id number] CC: Roderick Henning D.O.
[2018-10-25] VITALS: BP 116/58
[2018-10-25 04:00] VITALS: BP 126/64
[2018-10-25] MEDS: Morphine Sulfate 2mg/ml Inj IVP PRN ×4 (04:21→21:29)
[2018-10-25] MEDS: Clindamycin 150mg cap ORAL SCH ×3 (06:29→21:32)
[2018-10-25] MEDS: NovoLOG Insulin Flexpen SUBQ SCH ×4 (06:30→21:28)
--- NOTE | 2018-10-25 06:47 | General Progress Note ---
Assessment/Plan Status: stable, unchanged Assessment/Plan # Anemia of chronic disease due to underlying chronic medical issues, multifactorial. 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 --> Hgb remains low at 6.5 --> Prior anemia w/u has been reviewed. Ferritin >2000 --> No evidence of hemolysis is noted, peripheral smear has been reviewed. --> Hgb goal >7. Transfuse prn. --> EGD 10/24 # Anemia of chronic kidney disease. 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 # End-stage renal disease on hemodialysis. Nephro is following, appreciate recs. --> The patient is on hemodialysis due to mild shortness of breath and mild hyperkalemia. # Mild hyperkalemia, potassium 6.2 on admission --> Currently remains elevated at 5.5 --> The patient has been treated medically in the emergency room. --> The patient was dialyzed for 3-1/2 hours on a 2 potassium bath. # Hypertension. Adjust medications as appropriate. # Diabetes mellitus per primary care physician. --> Cont on insulin --> Cont to monitor BS levels : GREATLY APPRECIATE CONSULTATION. Subjective Date patient seen: Oct 25, 2018 Hematologic/Lymphatic: Reports: anemia Allergies: Coded Allergies: NO KNOWN ALLERGIES (Unverified Allergy, Unknown, 10/15/15) All Systems: reviewed and negative except above Subjective S/P EGD, tolerated procedure well. Pt awake and alert. VS stable. Objective Last 24 Hour Vital Signs Date Time Temp Pulse Resp B/P (MAP) Pulse Ox O2 Delivery O2 Flow Rate FiO2 10/25/18 04:00 98.0 69 20 126/64 (84) 98 10/25/18 04:00 69 10/25/18 00:00 98.4 67 18 116/58 (77) 95 10/25/18 00:00 67 10/24/18 22:11 68 20 Nasal Cannula 2.0 28 10/24/18 21:00 Nasal Cannula 2.0 10/24/18 20:00 98.5 75 19 140/77 (98) 99 10/24/18 20:00 75 10/24/18 16:00 98.7 76 20 153/96 (115) 97 10/24/18 16:00 73 10/24/18 12:00 76 10/24/18 12:00 97.6 74 20 115/53 (73) 97 10/24/18 11:10 97.7 10/24/18 09:00 74 115/53 10/24/18 09:00 Nasal Cannula 2.0 10/24/18 08:00 68 10/24/18 08:00 97.7 70 20 143/99 (114) 100 10/24/18 07:58 72 18 100 10/24/18 07:57 72 18 100 10/24/18 07:45 97.0 68 18 175/87 100 Nasal Cannula 3 10/24/18 07:40 64 17 179/69 100 Nasal Cannula 3 10/24/18 07:30 70 15 172/79 100 Nasal Cannula 3 10/24/18 07:25 97.0 72 18 179/77 100 Nasal Cannula 3 Intake and Output 10/24/18 10/25/18 19:00 07:00 Intake Total 1995 ml Output Total 0 ml Balance 1995 ml Intake Oral 1920 ml IV Total 75 ml Estimated Blood Loss 0 ml # Voids 6 1 Height (Feet): 5 Height (Inches): 5.00 Weight (Pounds): 151 Objective PHYSICAL EXAMINATION: VITAL SIGNS: Have been reviewed. GENERAL: The patient awake, alert, in mild distress. HEENT: Extraocular muscles intact. No lymphadenopathy noted. CARDIOVASCULAR: S1 and S2. No rubs or gallops. PULMONARY: Clear to auscultation bilaterally. No rales, rhonchi or wheezes. ABDOMINAL: Obese, nondistended and nontender. EXTREMITIES: A 2+ pitting edema. Malick Lizama MD Oct 25, 2018 06:47
--- NOTE | 2018-10-25 07:54 | Nephrology Progress Note ---
Assessment/Plan Assessment/Plan A/P 1) ESRD- HD TTS - AM labs pending, might need HD 4 x week 2) Hyperk+ - AM labs pending 3) Anemia- Gstritis Patient on EPO and does not accept blood products 4) HTN- stable Subjective Date patient seen: Oct 25, 2018 Time patient seen: 07:52 ROS Limited/Unobtainable: No Allergies: Coded Allergies: NO KNOWN ALLERGIES (Unverified Allergy, Unknown, 10/15/15) Subjective Patient feeling better. No CP or SOB Objective Last 24 Hour Vital Signs Date Time Temp Pulse Resp B/P (MAP) Pulse Ox O2 Delivery O2 Flow Rate FiO2 10/25/18 04:00 98.0 69 20 126/64 (84) 98 10/25/18 04:00 69 10/25/18 00:00 98.4 67 18 116/58 (77) 95 10/25/18 00:00 67 10/24/18 22:11 68 20 Nasal Cannula 2.0 28 10/24/18 21:00 Nasal Cannula 2.0 10/24/18 20:00 98.5 75 19 140/77 (98) 99 10/24/18 20:00 75 10/24/18 16:00 98.7 76 20 153/96 (115) 97 10/24/18 16:00 73 10/24/18 12:00 76 10/24/18 12:00 97.6 74 20 115/53 (73) 97 10/24/18 11:10 97.7 10/24/18 09:00 74 115/53 10/24/18 09:00 Nasal Cannula 2.0 10/24/18 08:00 68 10/24/18 08:00 97.7 70 20 143/99 (114) 100 10/24/18 07:58 72 18 100 10/24/18 07:57 72 18 100 Intake and Output 10/24/18 10/25/18 19:00 07:00 Intake Total 1995 ml Output Total 0 ml 3000 ml Balance 1995 ml -3000 ml Intake Oral 1920 ml IV Total 75 ml Hemodialysis UF 3000 ml Estimated Blood Loss 0 ml # Voids 6 1 Height (Feet): 5 Height (Inches): 5.00 Weight (Pounds): 150 General Appearance: no apparent distress, alert EENT: normal ENT inspection Neck: normal alignment, supple Cardiovascular: regular rhythm Respiratory/Chest: lungs clear, normal breath sounds Abdomen: non tender, soft Edema: no edema noted Arm (L), no edema noted Arm (R), no edema noted Leg (L), no edema noted Leg (R), no edema noted Pedal (L), no edema noted Pedal (R), no edema noted Generalized Nirmal Manley MD Oct 25, 2018 07:54
[2018-10-25 08:00] VITALS: BP 138/70
--- NOTE | 2018-10-25 08:35 | Consultation ---
Consult Note Assessment/Plan A/ 1) Bulla right foot likely from improper shoes 2) Resolved bullas left foot 3) Uncontrolled DM 4) ESRD P/ 1) Patient was consented and bedside I&D was performed of right foot bulla without complication. Cultures taken of drainage. Wound orders placed 2) Abx per ID 3) Strict glycemic control 4) Will follow Thank you Dejuan Pat DPM Oct 25, 2018 08:35
[2018-10-25] MEDS: Allopurinol 100mg Tab ORAL SCH (09:04)
[2018-10-25] MEDS: Calcium Acetate 667mg Tab ORAL SCH (09:04)
[2018-10-25] MEDS: Heparin 5000 units/ml inj SUBQ SCH ×2 (09:10→21:00)
--- NOTE | 2018-10-25 09:38 | Diagnostic Imaging Report ---
Indication: Foot pain, infection Technique: 3 views left foot Comparison: none Findings: The bones are osteoporotic. No acute fractures. No dislocations. No definite osseous erosions, osteolytic lesions, or unusual periosteal reaction. The joint spaces are preserved. Impression: No acute bony trauma No radiographic evidence of osteomyelitis. Note, however, sensitivity of plain radiographs for such is limited. If there is high clinical suspicion, consider MRI or bone scan Osteoporotic change
--- NOTE | 2018-10-25 09:41 | Diagnostic Imaging Report ---
Indication: Pain and infection Technique: 3 views right foot Comparison: none Findings: There is mild hallux valgus and metatarsus adductus. Mild hammertoe deformity of all the digits is demonstrated. Bones are osteoporotic. No acute fractures. No dislocations. The joint spaces are preserved. No osseous erosions, osteolytic process, or unusual periosteal reaction Impression: No acute bony trauma No plain radiographic evidence of osteomyelitis. Note, however, limited sensitivity of plain radiographs for such. Consider bone scan or MRI for further evaluation if there is high clinical suspicion
[2018-10-25 10:34] LABS: HEMATOCRIT 19.9 % (37.0-47.0); MEAN CORPUSCULAR VOLUME 77 FL (80-99); PLATELET COUNT 164 K/UL (150-450); RED BLOOD COUNT 2.57 M/UL (4.20-5.40); RED CELL DISTRIBUTION WIDTH 18.6 % (11.6-14.8); WHITE BLOOD COUNT 8.1 K/UL (4.8-10.8)
--- NOTE | 2018-10-25 10:43 | GI Progress Note ---
Assessment/Plan Problems: (1) End stage renal disease on dialysis ICD Codes: N18.6 - End stage renal failure on dialysis; Z99.2 - Dependence on renal dialysis SNOMED: 804927210 (2) Uncontrolled diabetes mellitus ICD Codes: E11.9 - Type 2 diabetes mellitus without complications SNOMED: 149157950 (3) Morbid obesity ICD Codes: E66.01 - Morbid (severe) obesity due to excess calories SNOMED: 491165326, [id number] (4) Anemia ICD Codes: D64.9 - Anemia, unspecified SNOMED: 326411227 Qualifiers: Qualified Codes: D64.9 - Anemia, unspecified (5) Iron deficiency ICD Codes: E61.1 - Iron deficiency SNOMED: 25540859 Status: unchanged Status Narrative Discussed with Dr. Garcia. Assessment/Plan Hx of recent colonoscopy at [facility] which was unremarkable OB stool negative. s/p EGD >> gastritis, no active source of bleeding advance diet monitor H&H bowel regime ppi fu labs The patient was seen and examined at bedside and all new and available data was reviewed in the patients chart. I agree with the above findings, impression and plan. (Patient seen earlier today. Signature stamp does not reflect patient encounter time.). - Jamison Garcia MD Subjective Gastrointestinal/Abdominal: Reports: no symptoms Objective Last 24 Hour Vital Signs Date Time Temp Pulse Resp B/P (MAP) Pulse Ox O2 Delivery O2 Flow Rate FiO2 10/25/18 09:05 72 140/77 10/25/18 08:15 95 Nasal Cannula 2.0 28 10/25/18 08:15 70 18 Nasal Cannula 2.0 28 10/25/18 08:15 Nasal Cannula 2.0 28 10/25/18 04:00 98.0 69 20 126/64 (84) 98 10/25/18 04:00 69 10/25/18 00:00 98.4 67 18 116/58 (77) 95 10/25/18 00:00 67 10/24/18 22:11 68 20 Nasal Cannula 2.0 28 10/24/18 21:00 Nasal Cannula 2.0 10/24/18 20:00 98.5 75 19 140/77 (98) 99 10/24/18 20:00 75 10/24/18 16:00 98.7 76 20 153/96 (115) 97 10/24/18 16:00 73 10/24/18 12:00 76 10/24/18 12:00 97.6 74 20 115/53 (73) 97 10/24/18 11:10 97.7 Intake and Output 10/24/18 10/25/18 19:00 07:00 Intake Total 1995 ml Output Total 0 ml 3000 ml Balance 1995 ml -3000 ml Intake Oral 1920 ml IV Total 75 ml Hemodialysis UF 3000 ml Estimated Blood Loss 0 ml # Voids 6 1 Laboratory Tests Test 10/25/18 10:20 White Blood Count 8.1 K/UL (4.8-10.8) Red Blood Count 2.57 M/UL (4.20-5.40) L Hemoglobin 6.0 G/DL (12.0-16.0) *L Hematocrit 19.9 % (37.0-47.0) L Mean Corpuscular Volume 77 FL (80-99) L Mean Corpuscular Hemoglobin 23.5 PG (27.0-31.0) L Mean Corpuscular Hemoglobin Concent 30.3 G/DL (32.0-36.0) L Red Cell Distribution Width 18.6 % (11.6-14.8) H Platelet Count 164 K/UL (150-450) Mean Platelet Volume 6.1 FL (6.5-10.1) L Neutrophils (%) (Auto) % (45.0-75.0) Lymphocytes (%) (Auto) % (20.0-45.0) Monocytes (%) (Auto) % (1.0-10.0) Eosinophils (%) (Auto) % (0.0-3.0) Basophils (%) (Auto) % (0.0-2.0) Neutrophils % (Manual) Pending Lymphocytes % (Manual) Pending Platelet Estimate Pending Platelet Morphology Pending Sodium Level Pending Potassium Level Pending Chloride Level Pending Carbon Dioxide Level Pending Blood Urea Nitrogen Pending Creatinine Pending Estimat Glomerular Filtration Rate Pending Glucose Level Pending Calcium Level Pending Height (Feet): 5 Height (Inches): 5.00 Weight (Pounds): 150 General Appearance: WD/WN, no apparent distress, alert, obese Cardiovascular: normal rate Respiratory/Chest: normal breath sounds, no respiratory distress Abdominal Exam: normal bowel sounds, non tender, soft Extremities: normal range of motion, non-tender Jaime Martin NP Oct 25, 2018 10:43
[2018-10-25 10:46] LABS: ANION GAP 12 mmol/L (5-15); BLOOD UREA NITROGEN 45 mg/dL (7-18); CALCIUM 8.2 MG/DL (8.5-10.1); CARBON DIOXIDE 27 MMOL/L (21-32); CHLORIDE 96 MMOL/L (98-107); CREATININE 7.8 MG/DL (0.55-1.30); POTASSIUM 4.6 MMOL/L (3.5-5.1); SODIUM 135 MMOL/L (136-145)
--- NOTE | 2018-10-25 11:35 | Pulmonology Progress Note ---
Assessment/Plan Problems: (1) Acute respiratory failure (2) End stage renal disease on dialysis (3) Bacteremia (4) Morbid obesity (5) Hypertension (6) Uncontrolled diabetes mellitus (7) UTI (urinary tract infection) Assessment/Plan BC positive ID will see, on Vancomycin all reviewed respiratory treatment titrate fio2 to sat of 92% check sputum check urine cultures iv abx as per ID sliding scale insulin coverage. Subjective ROS Limited/Unobtainable: No Constitutional: Reports: no symptoms HEENT: Repors: no symptoms Respiratory: Reports: no symptoms Allergies: Coded Allergies: NO KNOWN ALLERGIES (Unverified Allergy, Unknown, 10/15/15) Objective Last 24 Hour Vital Signs Date Time Temp Pulse Resp B/P (MAP) Pulse Ox O2 Delivery O2 Flow Rate FiO2 10/25/18 09:05 72 140/77 10/25/18 09:00 Nasal Cannula 2.0 10/25/18 08:15 95 Nasal Cannula 2.0 28 10/25/18 08:15 70 18 Nasal Cannula 2.0 28 10/25/18 08:15 Nasal Cannula 2.0 28 10/25/18 08:00 98.4 55 18 138/70 (92) 100 10/25/18 04:00 98.0 69 20 126/64 (84) 98 10/25/18 04:00 69 10/25/18 00:00 98.4 67 18 116/58 (77) 95 10/25/18 00:00 67 10/24/18 22:11 68 20 Nasal Cannula 2.0 28 10/24/18 21:00 Nasal Cannula 2.0 10/24/18 20:00 98.5 75 19 140/77 (98) 99 10/24/18 20:00 75 10/24/18 16:00 98.7 76 20 153/96 (115) 97 10/24/18 16:00 73 10/24/18 12:00 76 10/24/18 12:00 97.6 74 20 115/53 (73) 97 Intake and Output 10/24/18 10/25/18 19:00 07:00 Intake Total 1994 ml Output Total 0 ml 3000 ml Balance 1994 ml -3000 ml Intake Oral 1920 ml IV Total 75 ml Hemodialysis UF 3000 ml Estimated Blood Loss 0 ml # Voids 6 1 General Appearance: WD/WN HEENT: normocephalic Respiratory/Chest: chest wall non-tender, lungs clear Breasts: no masses Cardiovascular: normal peripheral pulses Abdomen: normal bowel sounds, soft, non tender Genitourinary: normal external genitalia 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 Complete 10/22/18 14:43 Rectum VRE Culture - Final NO VANCOMYCIN RESISTANT ENTEROCOCCUS ... Complete 10/22/18 14:43 Rectum - Final NO CARBAPENEM-RESISTANT ENTEROBACTERI... Complete Laboratory Tests 10/25/18 10:20: White Blood Count 8.1, Red Blood Count 2.57L, Hemoglobin 6.0*L, Hematocrit 19.9L , Mean Corpuscular Volume 77L, Mean Corpuscular Hemoglobin 23.5L, Mean Corpuscular Hemoglobin Concent 30.3L, Red Cell Distribution Width 18.6H, Platelet Count 164, Mean Platelet Volume 6.1L, Neutrophils (%) (Auto) , Lymphocytes (%) (Auto) , Monocytes (%) (Auto) , Eosinophils (%) (Auto) , Basophils (%) (Auto) , Neutrophils % (Manual) [Pending], Lymphocytes % (Manual) [Pending], Platelet Estimate [Pending], Platelet Morphology [Pending], Sodium Level 135L, Potassium Level 4.6, Chloride Level 96L, Carbon Dioxide Level 27, Anion Gap 12, Blood Urea Nitrogen 45H, Creatinine 7.8H, Estimat Glomerular Filtration Rate 6.4, Glucose Level 168H, Calcium Level 8.2L Current Medications Medications (Trade) Dose Ordered Sig/Josi Route PRN Reason Start Time Stop Time Status Last Admin Dose Admin Acetaminophen (Tylenol) 650 mg Q4H PRN ORAL fever 10/22/18 13:28 11/21/18 13:27 Albuterol/ Ipratropium (Albuterol/ Ipratropium) 3 ml Q6H PRN HHN dyspnea 10/22/18 13:30 10/27/18 13:29 Allopurinol (Zyloprim) 100 mg DAILY ORAL 10/23/18 09:00 11/22/18 08:59 10/25/18 09:04 Amlodipine Besylate (Norvasc) 10 mg DAILY ORAL 10/24/18 09:00 11/23/18 08:59 10/25/18 09:05 Ampicillin Sodium/ Sulbactam Sodium 3 gm/Sodium Chloride 110 ml @ 220 mls/hr Q24H IVPB 10/24/18 18:00 10/31/18 17:59 10/24/18 18:36 Atorvastatin Calcium (Lipitor) 20 mg BEDTIME ORAL 10/22/18 21:00 11/21/18 20:59 10/24/18 20:05 Calcium Acetate (Phoslo) 667 mg DAILY ORAL 10/23/18 09:00 11/22/18 08:59 10/25/18 09:04 Clindamycin HCl (Cleocin) 600 mg Q8HR ORAL 10/24/18 18:00 10/31/18 17:59 10/25/18 06:29 Clonidine HCl (Catapres Tab) 0.1 mg Q4H PRN ORAL For High Blood Pressure 10/22/18 13:30 11/21/18 13:29 10/23/18 08:39 Dextrose (Dextrose 50%) 25 ml Q30M PRN IV Hypoglycemia 10/22/18 13:45 11/21/18 13:30 Dextrose (Dextrose 50%) 50 ml Q30M PRN IV hypoglycemia 10/22/18 13:45 11/21/18 13:44 10/23/18 11:41 Diphenhydramine HCl (Benadryl) 25 mg Q8H PRN ORAL Itching 10/25/18 06:45 11/24/18 06:44 10/25/18 09:04 Epoetin Jose De Jesus (Procrit (for ESRD on dialysis)) 10,000 units SUN-SUN-SUN SUBQ 10/23/18 21:00 11/22/18 20:59 10/23/18 22:33 Gabapentin (Neurontin) 400 mg BID ORAL 10/24/18 18:00 11/23/18 17:59 10/25/18 09:04 Heparin Sodium (Porcine) (Heparin 5000 units/ml) 5,000 units EVERY 12 HOURS SUBQ 10/22/18 21:00 11/21/18 20:59 10/25/18 09:10 Insulin Aspart (NovoLOG) BEFORE MEALS AND HS SUBQ 10/22/18 16:30 11/21/18 16:29 10/24/18 20:09 Morphine Sulfate (Morphine Sulfate) 1 mg Q4H PRN IVP For Pain 10/22/18 13:30 10/29/18 13:29 10/25/18 09:05 Ondansetron HCl (Zofran) 4 mg Q6H PRN IVP Nausea & Vomiting 10/22/18 13:30 11/21/18 13:29 10/25/18 09:05 Sevelamer Carbonate (Renvela) 800 mg THREE TIMES A DAY ORAL 10/22/18 18:00 11/21/18 17:59 10/25/18 09:04 Vancomycin HCl (Vanco rx to dose) 1 ea DAILY PRN MISC Per rx protocol 10/24/18 11:15 11/23/18 11:14 Zolpidem Tartrate (Ambien) 5 mg HSPRN PRN ORAL Insomnia 10/22/18 13:30 10/29/18 13:29 Meghana Murillo MD Oct 25, 2018 11:35
[2018-10-25 12:00] VITALS: BP 140/78
--- NOTE | 2018-10-25 12:34 | Cardiac Electrophysiology PN ---
Assessment/Plan Assessment/Plan 1. Congestive heart failure due to hypertensive heart disease and diastolic dysfunction. Echocardiogram showed EF 55%. Continue dialysis. 2. Hypertensive heart disease. On Norvasc 10 mg daily and HD. On p.r.n.clonidine. 3. End-stage renal disease, on hemodialysis. 4. Diabetes, on insulin. 5. Hyperlipidemia, on Lipitor. 6. Positive blood culture and Right toe blister. Podiatry and ID FU. S/P Debridement On Vancomycin DW RN Subjective Subjective No CP or SOB. Had Right toe blister debridement today. EGD showed gastritis Objective Last 24 Hour Vital Signs Date Time Temp Pulse Resp B/P (MAP) Pulse Ox O2 Delivery O2 Flow Rate FiO2 10/25/18 09:05 72 140/77 10/25/18 09:00 Nasal Cannula 2.0 10/25/18 08:15 95 Nasal Cannula 2.0 28 10/25/18 08:15 70 18 Nasal Cannula 2.0 28 10/25/18 08:15 Nasal Cannula 2.0 28 10/25/18 08:00 98.4 55 18 138/70 (92) 100 10/25/18 04:00 98.0 69 20 126/64 (84) 98 10/25/18 04:00 69 10/25/18 00:00 98.4 67 18 116/58 (77) 95 10/25/18 00:00 67 10/24/18 22:11 68 20 Nasal Cannula 2.0 28 10/24/18 21:00 Nasal Cannula 2.0 10/24/18 20:00 98.5 75 19 140/77 (98) 99 10/24/18 20:00 75 10/24/18 16:00 98.7 76 20 153/96 (115) 97 10/24/18 16:00 73 Intake and Output 10/24/18 10/25/18 18:59 06:59 Intake Total 1995 ml Output Total 0 ml 3000 ml Balance 1995 ml -3000 ml Intake Oral 1920 ml IV Total 75 ml Hemodialysis UF 3000 ml Estimated Blood Loss 0 ml # Voids 6 1 Laboratory Tests Test 10/25/18 10:20 White Blood Count 8.1 K/UL (4.8-10.8) Red Blood Count 2.57 M/UL (4.20-5.40) L Hemoglobin 6.0 G/DL (12.0-16.0) *L Hematocrit 19.9 % (37.0-47.0) L Mean Corpuscular Volume 77 FL (80-99) L Mean Corpuscular Hemoglobin 23.5 PG (27.0-31.0) L Mean Corpuscular Hemoglobin Concent 30.3 G/DL (32.0-36.0) L Red Cell Distribution Width 18.6 % (11.6-14.8) H Platelet Count 164 K/UL (150-450) Mean Platelet Volume 6.1 FL (6.5-10.1) L Neutrophils (%) (Auto) % (45.0-75.0) Lymphocytes (%) (Auto) % (20.0-45.0) Monocytes (%) (Auto) % (1.0-10.0) Eosinophils (%) (Auto) % (0.0-3.0) Basophils (%) (Auto) % (0.0-2.0) Differential Total Cells Counted 100 Neutrophils % (Manual) 68 % (45-75) Lymphocytes % (Manual) 17 % (20-45) L Monocytes % (Manual) 4 % (1-10) Eosinophils % (Manual) 10 % (0-3) H Basophils % (Manual) 1 % (0-2) Band Neutrophils 0 % (0-8) Platelet Estimate Adequate Platelet Morphology Normal Polychromasia 2+ Hypochromasia 3+ Anisocytosis 2+ Microcytosis 2+ Target Cells 1+ Tear Drop Cells 1+ Ovalocytes 1+ Sodium Level 135 MMOL/L (136-145) L Potassium Level 4.6 MMOL/L (3.5-5.1) Chloride Level 96 MMOL/L (98-107) L Carbon Dioxide Level 27 MMOL/L (21-32) Anion Gap 12 mmol/L (5-15) Blood Urea Nitrogen 45 mg/dL (7-18) H Creatinine 7.8 MG/DL (0.55-1.30) H Estimat Glomerular Filtration Rate 6.4 mL/min (>60) Glucose Level 168 MG/DL (74-106) H Calcium Level 8.2 MG/DL (8.5-10.1) L Microbiology Date/Time Source Procedure Growth Status 10/24/18 12:00 Blood Blood Culture - Preliminary Resulted 10/22/18 14:43 Nasal Nares MRSA Culture - Final NO METHICILLIN RESISTANT STAPH AUREUS... Complete 10/22/18 14:43 Rectum VRE Culture - Final NO VANCOMYCIN RESISTANT ENTEROCOCCUS ... Complete 10/22/18 14:43 Rectum - Final NO CARBAPENEM-RESISTANT ENTEROBACTERI... Complete Objective HEAD AND NECK: No jugular venous distention. LUNGS: Decreased breath sounds. CARDIOVASCULAR: Regular S1 and S2 with no gallop. ABDOMEN: Morbidly obese. EXTREMITIES: 1+ pitting edema.Right big toe s/p I&D Shalom Vinson MD Oct 25, 2018 12:34
--- NOTE | 2018-10-25 12:48 | General Progress Note ---
Assessment/Plan Problem List: (1) Congestive heart failure (CHF) ICD Codes: I50.9 - Heart failure, unspecified SNOMED: 06443165 (2) Anemia ICD Codes: D64.9 - Anemia, unspecified SNOMED: 686325627 Qualifiers: Qualified Codes: D64.9 - Anemia, unspecified (3) Hypertension ICD Codes: I10 - Essential (primary) hypertension SNOMED: 97973148 (4) Morbid obesity ICD Codes: E66.01 - Morbid (severe) obesity due to excess calories SNOMED: 586170307, 38055057724796 (5) End stage renal disease on dialysis ICD Codes: N18.6 - End stage renal failure on dialysis; Z99.2 - Dependence on renal dialysis SNOMED: 145044109 (6) Open wound of right great toe ICD Codes: S91.101A - Unspecified open wound of right great toe without damage to nail, initial encounter SNOMED: 252981038 Status: stable, progressing Assessment/Plan wound care ot pt diet dialysis heme f/u podiatry eval cbc bmp am aru eval Subjective Constitutional: Reports: weakness Respiratory: Reports: shortness of breath Allergies: Coded Allergies: NO KNOWN ALLERGIES (Unverified Allergy, Unknown, 10/15/15) All Systems: reviewed and negative except above Subjective o2nc sl gen pain Objective Last 24 Hour Vital Signs Date Time Temp Pulse Resp B/P (MAP) Pulse Ox O2 Delivery O2 Flow Rate FiO2 10/25/18 12:00 98.7 76 18 140/78 (98) 100 10/25/18 09:05 72 140/77 10/25/18 09:00 Nasal Cannula 2.0 10/25/18 08:15 95 Nasal Cannula 2.0 28 10/25/18 08:15 70 18 Nasal Cannula 2.0 28 10/25/18 08:15 Nasal Cannula 2.0 28 10/25/18 08:00 98.4 55 18 138/70 (92) 100 10/25/18 04:00 98.0 69 20 126/64 (84) 98 10/25/18 04:00 69 10/25/18 00:00 98.4 67 18 116/58 (77) 95 10/25/18 00:00 67 10/24/18 22:11 68 20 Nasal Cannula 2.0 28 10/24/18 21:00 Nasal Cannula 2.0 10/24/18 20:00 98.5 75 19 140/77 (98) 99 10/24/18 20:00 75 10/24/18 16:00 98.7 76 20 153/96 (115) 97 10/24/18 16:00 73 Intake and Output 10/24/18 10/25/18 18:59 06:59 Intake Total 1995 ml Output Total 0 ml 3000 ml Balance 1995 ml -3000 ml Intake Oral 1920 ml IV Total 75 ml Hemodialysis UF 3000 ml Estimated Blood Loss 0 ml # Voids 6 1 Laboratory Tests 10/25/18 10:20: White Blood Count 8.1, Red Blood Count 2.57L, Hemoglobin 6.0*L, Hematocrit 19.9L , Mean Corpuscular Volume 77L, Mean Corpuscular Hemoglobin 23.5L, Mean Corpuscular Hemoglobin Concent 30.3L, Red Cell Distribution Width 18.6H, Platelet Count 164, Mean Platelet Volume 6.1L, Neutrophils (%) (Auto) , Lymphocytes (%) (Auto) , Monocytes (%) (Auto) , Eosinophils (%) (Auto) , Basophils (%) (Auto) , Differential Total Cells Counted 100, Neutrophils % ( Manual) 68, Lymphocytes % (Manual) 17L, Monocytes % (Manual) 4, Eosinophils % ( Manual) 10H, Basophils % (Manual) 1, Band Neutrophils 0, Platelet Estimate Adequate, Platelet Morphology Normal, Polychromasia 2+, Hypochromasia 3+, Anisocytosis 2+, Microcytosis 2+, Target Cells 1+, Tear Drop Cells 1+, Ovalocytes 1+, Sodium Level 135L, Potassium Level 4.6, Chloride Level 96L, Carbon Dioxide Level 27, Anion Gap 12, Blood Urea Nitrogen 45H, Creatinine 7.8H , Estimat Glomerular Filtration Rate 6.4, Glucose Level 168H, Calcium Level 8.2L Height (Feet): 5 Height (Inches): 5.00 Weight (Pounds): 150 General Appearance: lethargic EENT: normal ENT inspection Neck: normal alignment Cardiovascular: normal peripheral pulses, normal rate, regular rhythm Respiratory/Chest: chest wall non-tender, lungs clear, normal breath sounds Abdomen: normal bowel sounds, non tender, soft Extremities: normal inspection Edema: no edema noted Arm (L), no edema noted Arm (R), no edema noted Leg (L), no edema noted Leg (R), no edema noted Pedal (L), no edema noted Pedal (R), no edema noted Generalized Neurologic: responsive, motor weakness Skin: normal pigmentation, warm/dry Objective right toe dressing c and d Roderick Henning DO Oct 25, 2018 12:48
[2018-10-25 16:00] VITALS: BP 148/68
[2018-10-25] MEDS: Ampicillin/Sulbactam Sod 3 GM in NS 110 ML IVPB SCH (17:07)
--- NOTE | 2018-10-25 17:49 | Infectious Diseases Prog Note ---
Assessment/Plan Assessment/Plan Abx: Ceftriaxone x1 10/22 Assessment: R foot blisters/cellulitis -10/25 s/p bedsdie I+D; wound cx p Gram positive bacteremia- real vs contaminant- r/o line infection -10/22 Bcx 11/29 CONS, 11/29 GPR; 10/24 GPC chains (source? periheral or cental line) Afebrile NO Leukocytosis Pyuria- no UTI symptoms -u/a wbc tntc, nitneg, leuk +3; ucx NTD Severe anemia Hyperkalemia SOB 2ry to CHF exacerbation -CXR: Cardiomegaly with pulmonary venous congestion -influenza sc neg ESRD on HD DM2 b/l eye blindness CHF, bradycardia 2ry hyperparathyroidism CAD s/p stent AOCD s/p AVG w recent rupture HTN morbid obesity Plan: -Continue empiric IV Vancomycin #2 for GPC bacteremia -Continue Unasyn and Clindamycin #2 for strep coverage for cellulitis and pending ID GPC chains in Bcx -Repeat 2 sets of Bcx (central line and peripheral) -pending ID and repaet bcx, may need line holiday -f/u cx -Monitor CBC/CMP, temperatures -aspiration precautions -wound care -Podiatry f/u Thank you for this consultation. Will continue to follow along with you. Discussed with RN. Subjective Allergies: Coded Allergies: NO KNOWN ALLERGIES (Unverified Allergy, Unknown, 10/15/15) Subjective afebrile bacteremic 11/29 GPC no leukocytosis Objective Vital Signs Last 24 Hour Vital Signs Date Time Temp Pulse Resp B/P (MAP) Pulse Ox O2 Delivery O2 Flow Rate FiO2 10/25/18 16:00 97.9 86 18 148/68 (94) 100 10/25/18 12:00 70 10/25/18 12:00 98.7 76 18 140/78 (98) 100 10/25/18 09:05 72 140/77 10/25/18 09:00 Nasal Cannula 2.0 10/25/18 08:15 95 Nasal Cannula 2.0 28 10/25/18 08:15 70 18 Nasal Cannula 2.0 28 10/25/18 08:15 Nasal Cannula 2.0 28 10/25/18 08:00 98.4 55 18 138/70 (92) 100 10/25/18 08:00 73 10/25/18 04:00 98.0 69 20 126/64 (84) 98 10/25/18 04:00 69 10/25/18 00:00 98.4 67 18 116/58 (77) 95 10/25/18 00:00 67 10/24/18 22:11 68 20 Nasal Cannula 2.0 28 10/24/18 21:00 Nasal Cannula 2.0 10/24/18 20:00 98.5 75 19 140/77 (98) 99 10/24/18 20:00 75 Height (Feet): 5 Height (Inches): 5.00 Weight (Pounds): 330 Objective GENERAL: The patient awake, alert, in mild distress. HEENT: Extraocular muscles intact. No lymphadenopathy noted. CARDIOVASCULAR: S1 and S2. No rubs or gallops. PULMONARY: Clear to auscultation bilaterally. No rales, rhonchi or wheezes. ABDOMINAL: Obese, nondistended and nontender. EXTREMITIES: A 2+ pitting edema. R foot blisters with surrounding cellulitis Microbiology Date/Time Source Procedure Growth Status 10/24/18 12:00 Blood Blood Culture - Preliminary Resulted Laboratory Tests Test 10/25/18 10:20 White Blood Count 8.1 K/UL (4.8-10.8) Red Blood Count 2.57 M/UL (4.20-5.40) L Hemoglobin 6.0 G/DL (12.0-16.0) *L Hematocrit 19.9 % (37.0-47.0) L Mean Corpuscular Volume 77 FL (80-99) L Mean Corpuscular Hemoglobin 23.5 PG (27.0-31.0) L Mean Corpuscular Hemoglobin Concent 30.3 G/DL (32.0-36.0) L Red Cell Distribution Width 18.6 % (11.6-14.8) H Platelet Count 164 K/UL (150-450) Mean Platelet Volume 6.1 FL (6.5-10.1) L Neutrophils (%) (Auto) % (45.0-75.0) Lymphocytes (%) (Auto) % (20.0-45.0) Monocytes (%) (Auto) % (1.0-10.0) Eosinophils (%) (Auto) % (0.0-3.0) Basophils (%) (Auto) % (0.0-2.0) Differential Total Cells Counted 100 Neutrophils % (Manual) 68 % (45-75) Lymphocytes % (Manual) 17 % (20-45) L Monocytes % (Manual) 4 % (1-10) Eosinophils % (Manual) 10 % (0-3) H Basophils % (Manual) 1 % (0-2) Band Neutrophils 0 % (0-8) Platelet Estimate Adequate Platelet Morphology Normal Polychromasia 2+ Hypochromasia 3+ Anisocytosis 2+ Microcytosis 2+ Target Cells 1+ Tear Drop Cells 1+ Ovalocytes 1+ Sodium Level 135 MMOL/L (136-145) L Potassium Level 4.6 MMOL/L (3.5-5.1) Chloride Level 96 MMOL/L (98-107) L Carbon Dioxide Level 27 MMOL/L (21-32) Anion Gap 12 mmol/L (5-15) Blood Urea Nitrogen 45 mg/dL (7-18) H Creatinine 7.8 MG/DL (0.55-1.30) H Estimat Glomerular Filtration Rate 6.4 mL/min (>60) Glucose Level 168 MG/DL (74-106) H Calcium Level 8.2 MG/DL (8.5-10.1) L Current Medications Medications (Trade) Dose Ordered Sig/Josi Route PRN Reason Start Time Stop Time Status Last Admin Dose Admin Acetaminophen (Tylenol) 650 mg Q4H PRN ORAL fever 10/22/18 13:28 11/21/18 13:27 Albuterol/ Ipratropium (Albuterol/ Ipratropium) 3 ml Q6H PRN HHN dyspnea 10/22/18 13:30 10/27/18 13:29 Allopurinol (Zyloprim) 100 mg DAILY ORAL 10/23/18 09:00 11/22/18 08:59 10/25/18 09:04 Amlodipine Besylate (Norvasc) 10 mg DAILY ORAL 10/24/18 09:00 11/23/18 08:59 10/25/18 09:05 Ampicillin Sodium/ Sulbactam Sodium 3 gm/Sodium Chloride 110 ml @ 220 mls/hr Q24H IVPB 10/24/18 18:00 10/31/18 17:59 10/25/18 17:07 Atorvastatin Calcium (Lipitor) 20 mg BEDTIME ORAL 10/22/18 21:00 11/21/18 20:59 10/24/18 20:05 Calcium Acetate (Phoslo) 667 mg DAILY ORAL 10/23/18 09:00 11/22/18 08:59 10/25/18 09:04 Clindamycin HCl (Cleocin) 600 mg Q8HR ORAL 10/24/18 18:00 10/31/18 17:59 10/25/18 13:36 Clonidine HCl (Catapres Tab) 0.1 mg Q4H PRN ORAL For High Blood Pressure 10/22/18 13:30 11/21/18 13:29 10/23/18 08:39 Dextrose (Dextrose 50%) 25 ml Q30M PRN IV Hypoglycemia 10/22/18 13:45 11/21/18 13:30 Dextrose (Dextrose 50%) 50 ml Q30M PRN IV hypoglycemia 10/22/18 13:45 11/21/18 13:44 10/23/18 11:41 Diphenhydramine HCl (Benadryl) 25 mg Q8H PRN ORAL Itching 10/25/18 06:45 11/24/18 06:44 10/25/18 17:05 Epoetin Jose De Jesus (Procrit (for ESRD on dialysis)) 10,000 units SUN-SUN-SUN SUBQ 10/23/18 21:00 11/22/18 20:59 10/23/18 22:33 Gabapentin (Neurontin) 400 mg BID ORAL 10/24/18 18:00 11/23/18 17:59 10/25/18 17:05 Heparin Sodium (Porcine) (Heparin 5000 units/ml) 5,000 units EVERY 12 HOURS SUBQ 10/22/18 21:00 11/21/18 20:59 10/25/18 09:10 Insulin Aspart (NovoLOG) BEFORE MEALS AND HS SUBQ 10/22/18 16:30 11/21/18 16:29 10/25/18 17:10 Morphine Sulfate (Morphine Sulfate) 1 mg Q4H PRN IVP For Pain 10/22/18 13:30 10/29/18 13:29 10/25/18 17:25 Ondansetron HCl (Zofran) 4 mg Q6H PRN IVP Nausea & Vomiting 10/22/18 13:30 11/21/18 13:29 10/25/18 09:05 Sevelamer Carbonate (Renvela) 800 mg THREE TIMES A DAY ORAL 10/22/18 18:00 11/21/18 17:59 10/25/18 17:05 Vancomycin HCl (Vanco rx to dose) 1 ea DAILY PRN MISC Per rx protocol 10/24/18 11:15 11/23/18 11:14 Zolpidem Tartrate (Ambien) 5 mg HSPRN PRN ORAL Insomnia 10/22/18 13:30 10/29/18 13:29 Susi Vanegas M.D. Oct 25, 2018 17:49
--- NOTE | 2018-10-25 18:15 | Consultation ---
DATE OF CONSULTATION: 10/25/2018 CONSULTING PHYSICIAN: Lin Eid D.P.M. REFERRING PHYSICIAN: Roderick Henning D.O. REASON FOR CONSULTATION: Bullous formation, right foot and left foot with uncontrolled diabetes mellitus. HISTORY OF PRESENT ILLNESS: The patient is known to my service from multiple admissions. She is a 63-year-old female who was admitted to [facility] on 10/22/2018, for congestive heart failure and end-stage renal disease. The patient admits that she has been wearing improper shoe gear and is more concerned about her left foot than her right. She is unaware that there is bullous formation on the right side. She states that there were blisters on the left foot and she was concerned about losing her toes. She denies any fevers, chills, nausea, or vomiting. PAST MEDICAL HISTORY: Significant for hypertension, morbid obesity, end-stage renal disease, blindness in both eyes, coronary artery disease, tachycardia, and lumbar radiculopathy. MEDICATIONS: Per MAR and include ampicillin, clindamycin, vancomycin, and heparin. ALLERGIES: She has no known drug allergies. SOCIAL HISTORY: The patient lives at home with caregiver. FAMILY HISTORY: Noncontributory. REVIEW OF SYSTEMS: HEENT: The patient denies any headaches or issues with hearing. CARDIORESPIRATORY: The patient currently denies any chest pain or shortness of breath. GENITOURINARY: The patient denies any urgency, frequency, burning upon urination or hematuria. GASTROINTESTINAL: The patient denies any constipation, diarrhea, blood in stool. PHYSICAL EXAMINATION: VITAL SIGNS: Temperature is 98.0, pulse 69, respiratory rate is 20, blood pressure is 126/64, and saturating 98% on 2 liter nasal cannula. LOWER EXTREMITY: Vascular, nonpalpable pedal pulses noted bilaterally. Feet are equally warm. No edema or cyanosis noted. Left foot dorsum of the second, third, and fourth toes appear to have healed blisters. No signs of acute infection are noted. There is dry skin noted on the periphery. Digital interspaces are clear. Right foot, there is a fluid-filled blister noted on the plantar aspect of the right hallux. No signs of acute infection are noted. No pain in the area. There is a purplish hue to the plantar aspect of the right foot, which is consistent with previous admissions and unchanged. NEUROLOGICAL: Protective threshold is absent bilateral. Achilles, deep tendon reflexes are 2+ bilateral. There is no spasticity noted. MUSCULOSKELETAL: A 4/5 muscle strength is noted in anterolateral, posterior muscle groups of bilateral lower extremities. No gross deformities are noted. LABORATORY DATA: White blood cell count is 9.0, hemoglobin and hematocrit is 6.5 and 21.3, and platelet count is 178. Potassium is 5.5, BUN is 65, creatinine is 9.3, and glucose is 125. Hemoglobin A1c 7.0. Albumin is 3.8. INR is 1.2. No lower extremity imaging is noted. ASSESSMENT: 1. Bulla on right foot, likely from improper shoe gear. 2. Resolved bullous on the left foot. 3. Uncontrolled diabetes mellitus. 4. End-stage renal disease. PLAN: 1. The patient will be consented for incision and drainage of the right foot, nurses present. Time-out was taken to identify the patient and site. The area was prepped and an incision was made and immediate serous drainage was noted from the site. No malodor or purulence was noted. Wound cultures of the drainage was performed sterilely. The cultures were passed off to the nurse and sent to the laboratory. Again area was expressed, no further drainage was noted. Sterile dressings were applied. The patient tolerated the procedure well. No anesthesia was needed as the patient is neuropathic. We will place the wound care orders consisting of cleaning the area with Betadine daily with coverage of dry dressing. 2. Antibiotics per Infectious Disease, cultures pending. 3. Strict glycemic control. We will follow. Thank you for the courtesy of this consultation, Dr. Henning. Dejuan Eid D.P.M. DR: LISHA/JEN JOB#: [id number] CC:
[2018-10-25 20:00] VITALS: BP 130/65
[2018-10-25] MEDS ORDERED: Vancomycin 1250mg/D5W 250ml IVPB ONE (20:00)
[2018-10-25] MEDS: Epogen (for ESRD on dialysis) SUBQ SCH (21:24)
[2018-10-25] MEDS ORDERED: NS 275ml ONE (22:35)
[2018-10-25] MEDS ORDERED: Tubing IV Secondary IV ONE (22:35)
[2018-10-26] VITALS: BP 125/68
[2018-10-26 04:00] VITALS: BP 139/69
[2018-10-26] MEDS: Clindamycin 150mg cap ORAL SCH (05:44)
[2018-10-26] MEDS: NovoLOG Insulin Flexpen SUBQ SCH ×4 (06:32→21:00)
--- NOTE | 2018-10-26 07:12 | General Progress Note ---
Assessment/Plan Problem List: (1) End stage renal disease on dialysis ICD Codes: N18.6 - End stage renal failure on dialysis; Z99.2 - Dependence on renal dialysis SNOMED: 315095444 (2) Blindness of both eyes ICD Codes: H54.0 - Blindness SNOMED: 035878882 (3) Morbid obesity ICD Codes: E66.01 - Morbid (severe) obesity due to excess calories SNOMED: 078084577, 34074355942013 (4) Coronary artery disease ICD Codes: I25.10 - Coronary artery disease SNOMED: 71968085 (5) History of colonic polyps ICD Codes: Z86.010 - Personal history of colonic polyps SNOMED: 160716168 (6) Hypertension ICD Codes: I10 - Essential (primary) hypertension SNOMED: 94658920 (7) Anemia ICD Codes: D64.9 - Anemia, unspecified SNOMED: 146866127 Qualifiers: Qualified Codes: D64.9 - Anemia, unspecified Assessment/Plan Hx of recent colonoscopy at [facility] which was unremarkable OB stool negative. s/p EGD >> gastritis, no active source of bleeding monitor H&H bowel regime ppi fu labs Subjective ROS Limited/Unobtainable: Yes Allergies: Coded Allergies: NO KNOWN ALLERGIES (Unverified Allergy, Unknown, 10/15/15) Objective Last 24 Hour Vital Signs Date Time Temp Pulse Resp B/P (MAP) Pulse Ox O2 Delivery O2 Flow Rate FiO2 10/26/18 04:00 97.3 64 20 139/69 (92) 94 10/26/18 03:40 59 10/26/18 00:00 97.3 63 20 125/68 (87) 94 10/25/18 23:38 63 10/25/18 21:00 Nasal Cannula 2.0 10/25/18 20:26 Nasal Cannula 2.0 28 10/25/18 20:26 82 16 Nasal Cannula 2.0 28 10/25/18 20:26 96 Nasal Cannula 2.0 28 10/25/18 20:00 97.6 67 18 130/65 (86) 100 10/25/18 19:40 62 10/25/18 16:00 71 10/25/18 16:00 97.9 86 18 148/68 (94) 100 10/25/18 12:00 70 10/25/18 12:00 98.7 76 18 140/78 (98) 100 10/25/18 09:05 72 140/77 10/25/18 09:00 Nasal Cannula 2.0 10/25/18 08:15 95 Nasal Cannula 2.0 28 10/25/18 08:15 70 18 Nasal Cannula 2.0 28 10/25/18 08:15 Nasal Cannula 2.0 28 10/25/18 08:00 98.4 55 18 138/70 (92) 100 10/25/18 08:00 73 Intake and Output 10/25/18 10/26/18 19:00 07:00 Intake Total 530 ml 350 ml Output Total 0 ml Balance 530 ml 350 ml Intake Oral 530 ml 350 ml Output Urine Total 0 ml Laboratory Tests 10/25/18 10:20: White Blood Count 8.1, Red Blood Count 2.57L, Hemoglobin 6.0*L, Hematocrit 19.9L , Mean Corpuscular Volume 77L, Mean Corpuscular Hemoglobin 23.5L, Mean Corpuscular Hemoglobin Concent 30.3L, Red Cell Distribution Width 18.6H, Platelet Count 164, Mean Platelet Volume 6.1L, Neutrophils (%) (Auto) , Lymphocytes (%) (Auto) , Monocytes (%) (Auto) , Eosinophils (%) (Auto) , Basophils (%) (Auto) , Differential Total Cells Counted 100, Neutrophils % ( Manual) 68, Lymphocytes % (Manual) 17L, Monocytes % (Manual) 4, Eosinophils % ( Manual) 10H, Basophils % (Manual) 1, Band Neutrophils 0, Platelet Estimate Adequate, Platelet Morphology Normal, Polychromasia 2+, Hypochromasia 3+, Anisocytosis 2+, Microcytosis 2+, Target Cells 1+, Tear Drop Cells 1+, Ovalocytes 1+, Sodium Level 135L, Potassium Level 4.6, Chloride Level 96L, Carbon Dioxide Level 27, Anion Gap 12, Blood Urea Nitrogen 45H, Creatinine 7.8H , Estimat Glomerular Filtration Rate 6.4, Glucose Level 168H, Calcium Level 8.2L 10/25/18 17:00: Random Vancomycin Level 9.7 Height (Feet): 5 Height (Inches): 5.00 Weight (Pounds): 330 General Appearance: no apparent distress EENT: normal ENT inspection Neck: supple Cardiovascular: normal rate, systolic murmur Respiratory/Chest: decreased breath sounds Abdomen: normal bowel sounds, non tender, soft Extremities: non-tender Jamison Garcia MD Oct 26, 2018 07:12
[2018-10-26 08:00] VITALS: BP 143/86
--- NOTE | 2018-10-26 08:05 | Pulmonology Progress Note ---
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 with close monitoring of volumes and cardiorenal parameters correct electrolytes as needed BC 2/4 Strep alpha hemolytic, real vs contaminant, abx as per ID recs repeat BC as per ID recs from CL and peripherally urine cx and influenza screen negative X ray bilateral foot - no evidence of OM BP management with CCB and clonidine prn BS management with SSI, optimize further as needed- per PMD monitor HH, patient Religious and wont accept blood transfusion anemia w/up noted, high ferritin , HH trending down continue EPO stool OB negative s/p EGD 10/24 venous Duplex BLE stat if negative start SCD and dc Heparin GI follows PT/OT supportive care case discussed and evaluated by supervising physician Subjective Allergies: Coded Allergies: NO KNOWN ALLERGIES (Unverified Allergy, Unknown, 10/15/15) Subjective HH down to 6.0/19.9 - 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 afebrile no leukocytosis HD pending for this am no signs of resp distress Objective Last 24 Hour Vital Signs Date Time Temp Pulse Resp B/P (MAP) Pulse Ox O2 Delivery O2 Flow Rate FiO2 10/26/18 04:00 97.3 64 20 139/69 (92) 94 10/26/18 03:40 59 10/26/18 00:00 97.3 63 20 125/68 (87) 94 10/25/18 23:38 63 10/25/18 21:00 Nasal Cannula 2.0 10/25/18 20:26 Nasal Cannula 2.0 28 10/25/18 20:26 82 16 Nasal Cannula 2.0 28 10/25/18 20:26 96 Nasal Cannula 2.0 28 10/25/18 20:00 97.6 67 18 130/65 (86) 100 10/25/18 19:40 62 10/25/18 16:00 71 10/25/18 16:00 97.9 86 18 148/68 (94) 100 10/25/18 12:00 70 10/25/18 12:00 98.7 76 18 140/78 (98) 100 10/25/18 09:05 72 140/77 10/25/18 09:00 Nasal Cannula 2.0 10/25/18 08:15 95 Nasal Cannula 2.0 28 10/25/18 08:15 70 18 Nasal Cannula 2.0 28 10/25/18 08:15 Nasal Cannula 2.0 28 Intake and Output 10/25/18 10/26/18 19:00 07:00 Intake Total 530 ml 350 ml Output Total 0 ml Balance 530 ml 350 ml Intake Oral 530 ml 350 ml Output Urine Total 0 ml General Appearance: no acute distress, other - obese, awake, alert, oriented AA female HEENT: normocephalic, atraumatic, anicteric, other - blind bilaterally Respiratory/Chest: decreased breath sounds Cardiovascular: normal rate - SR with 1 st degree AV block and PVCs Abdomen: normal bowel sounds, soft, non tender - obese Extremities: no edema, pedal pulses normal, other - R foot blisters, redness, tendern to touch Neurologic/Psychiatric: abnormal gait, alert, responsive, normal mood/affect Microbiology Date/Time Source Procedure Growth Status 10/24/18 12:00 Blood Blood Culture - Preliminary Strep Species, Alpha Hemolytic Resulted 10/24/18 11:50 Blood Blood Culture - Preliminary NO GROWTH AFTER 24 HOURS Resulted Laboratory Tests 10/25/18 10:20: White Blood Count 8.1, Red Blood Count 2.57L, Hemoglobin 6.0*L, Hematocrit 19.9L , Mean Corpuscular Volume 77L, Mean Corpuscular Hemoglobin 23.5L, Mean Corpuscular Hemoglobin Concent 30.3L, Red Cell Distribution Width 18.6H, Platelet Count 164, Mean Platelet Volume 6.1L, Neutrophils (%) (Auto) , Lymphocytes (%) (Auto) , Monocytes (%) (Auto) , Eosinophils (%) (Auto) , Basophils (%) (Auto) , Differential Total Cells Counted 100, Neutrophils % ( Manual) 68, Lymphocytes % (Manual) 17L, Monocytes % (Manual) 4, Eosinophils % ( Manual) 10H, Basophils % (Manual) 1, Band Neutrophils 0, Platelet Estimate Adequate, Platelet Morphology Normal, Polychromasia 2+, Hypochromasia 3+, Anisocytosis 2+, Microcytosis 2+, Target Cells 1+, Tear Drop Cells 1+, Ovalocytes 1+, Sodium Level 135L, Potassium Level 4.6, Chloride Level 96L, Carbon Dioxide Level 27, Anion Gap 12, Blood Urea Nitrogen 45H, Creatinine 7.8H , Estimat Glomerular Filtration Rate 6.4, Glucose Level 168H, Calcium Level 8.2L 10/25/18 17:00: Random Vancomycin Level 9.7 Current Medications Medications (Trade) Dose Ordered Sig/Josi Route PRN Reason Start Time Stop Time Status Last Admin Dose Admin Acetaminophen (Tylenol) 650 mg Q4H PRN ORAL fever 10/22/18 13:28 11/21/18 13:27 Albuterol/ Ipratropium (Albuterol/ Ipratropium) 3 ml Q6H PRN HHN dyspnea 10/22/18 13:30 10/27/18 13:29 Allopurinol (Zyloprim) 100 mg DAILY ORAL 10/23/18 09:00 11/22/18 08:59 10/25/18 09:04 Amlodipine Besylate (Norvasc) 10 mg DAILY ORAL 10/24/18 09:00 11/23/18 08:59 10/25/18 09:05 Ampicillin Sodium/ Sulbactam Sodium 3 gm/Sodium Chloride 110 ml @ 220 mls/hr Q24H IVPB 10/24/18 18:00 10/31/18 17:59 10/25/18 17:07 Atorvastatin Calcium (Lipitor) 20 mg BEDTIME ORAL 10/22/18 21:00 11/21/18 20:59 10/25/18 21:23 Calcium Acetate (Phoslo) 667 mg DAILY ORAL 10/23/18 09:00 11/22/18 08:59 10/25/18 09:04 Clindamycin HCl (Cleocin) 600 mg Q8HR ORAL 10/24/18 18:00 10/31/18 17:59 10/26/18 05:44 Clonidine HCl (Catapres Tab) 0.1 mg Q4H PRN ORAL For High Blood Pressure 10/22/18 13:30 11/21/18 13:29 10/23/18 08:39 Dextrose (Dextrose 50%) 25 ml Q30M PRN IV Hypoglycemia 10/22/18 13:45 11/21/18 13:30 Dextrose (Dextrose 50%) 50 ml Q30M PRN IV hypoglycemia 10/22/18 13:45 11/21/18 13:44 10/23/18 11:41 Diphenhydramine HCl (Benadryl) 25 mg Q8H PRN ORAL Itching 10/25/18 06:45 11/24/18 06:44 10/25/18 17:05 Epoetin Jose De Jesus (Procrit (for ESRD on dialysis)) 10,000 units SUN-SUN-SUN SUBQ 10/23/18 21:00 11/22/18 20:59 10/25/18 21:24 Gabapentin (Neurontin) 400 mg BID ORAL 10/24/18 18:00 11/23/18 17:59 10/25/18 17:05 Heparin Sodium (Porcine) (Heparin 5000 units/ml) 5,000 units EVERY 12 HOURS SUBQ 10/22/18 21:00 11/21/18 20:59 10/25/18 09:10 Insulin Aspart (NovoLOG) BEFORE MEALS AND HS SUBQ 10/22/18 16:30 11/21/18 16:29 10/26/18 06:32 Morphine Sulfate (Morphine Sulfate) 1 mg Q4H PRN IVP For Pain 10/22/18 13:30 10/29/18 13:29 10/25/18 21:29 Ondansetron HCl (Zofran) 4 mg Q6H PRN IVP Nausea & Vomiting 10/22/18 13:30 11/21/18 13:29 10/26/18 05:37 Sevelamer Carbonate (Renvela) 800 mg THREE TIMES A DAY ORAL 10/22/18 18:00 11/21/18 17:59 10/25/18 17:05 Vancomycin HCl (Vanco rx to dose) 1 ea DAILY PRN MISC Per rx protocol 10/24/18 11:15 11/23/18 11:14 Zolpidem Tartrate (Ambien) 5 mg HSPRN PRN ORAL Insomnia 10/22/18 13:30 10/29/18 13:29 Chastity Velasco NP Oct 26, 2018 08:05
--- NOTE | 2018-10-26 08:25 | General Progress Note ---
Assessment/Plan Problem List: (1) Congestive heart failure (CHF) ICD Codes: I50.9 - Heart failure, unspecified SNOMED: 35799088 (2) Anemia ICD Codes: D64.9 - Anemia, unspecified SNOMED: 283480167 Qualifiers: Qualified Codes: D64.9 - Anemia, unspecified (3) Hypertension ICD Codes: I10 - Essential (primary) hypertension SNOMED: 39417656 (4) Morbid obesity ICD Codes: E66.01 - Morbid (severe) obesity due to excess calories SNOMED: 704585875, 20591268203035 (5) End stage renal disease on dialysis ICD Codes: N18.6 - End stage renal failure on dialysis; Z99.2 - Dependence on renal dialysis SNOMED: 692261245 (6) Open wound of right great toe ICD Codes: S91.101A - Unspecified open wound of right great toe without damage to nail, initial encounter SNOMED: 554217871 Status: stable, progressing Assessment/Plan wound care ot pt diet dialysis heme f/u podiatry eval cbc bmp am aru eval Subjective Constitutional: Reports: weakness Respiratory: Reports: shortness of breath Allergies: Coded Allergies: NO KNOWN ALLERGIES (Unverified Allergy, Unknown, 10/15/15) All Systems: reviewed and negative except above Subjective o2nc sl gen pain Objective Last 24 Hour Vital Signs Date Time Temp Pulse Resp B/P (MAP) Pulse Ox O2 Delivery O2 Flow Rate FiO2 10/26/18 04:00 97.3 64 20 139/69 (92) 94 10/26/18 03:40 59 10/26/18 00:00 97.3 63 20 125/68 (87) 94 10/25/18 23:38 63 10/25/18 21:00 Nasal Cannula 2.0 10/25/18 20:26 Nasal Cannula 2.0 28 10/25/18 20:26 82 16 Nasal Cannula 2.0 28 10/25/18 20:26 96 Nasal Cannula 2.0 28 10/25/18 20:00 97.6 67 18 130/65 (86) 100 10/25/18 19:40 62 10/25/18 16:00 71 10/25/18 16:00 97.9 86 18 148/68 (94) 100 10/25/18 12:00 70 11/30/18 12:00 98.7 76 18 140/78 (98) 100 10/25/18 09:05 72 140/77 10/25/18 09:00 Nasal Cannula 2.0 Intake and Output 10/25/18 10/26/18 19:00 07:00 Intake Total 530 ml 350 ml Output Total 0 ml Balance 530 ml 350 ml Intake Oral 530 ml 350 ml Output Urine Total 0 ml Laboratory Tests 10/25/18 10:20: White Blood Count 8.1, Red Blood Count 2.57L, Hemoglobin 6.0*L, Hematocrit 19.9L , Mean Corpuscular Volume 77L, Mean Corpuscular Hemoglobin 23.5L, Mean Corpuscular Hemoglobin Concent 30.3L, Red Cell Distribution Width 18.6H, Platelet Count 164, Mean Platelet Volume 6.1L, Neutrophils (%) (Auto) , Lymphocytes (%) (Auto) , Monocytes (%) (Auto) , Eosinophils (%) (Auto) , Basophils (%) (Auto) , Differential Total Cells Counted 100, Neutrophils % ( Manual) 68, Lymphocytes % (Manual) 17L, Monocytes % (Manual) 4, Eosinophils % ( Manual) 10H, Basophils % (Manual) 1, Band Neutrophils 0, Platelet Estimate Adequate, Platelet Morphology Normal, Polychromasia 2+, Hypochromasia 3+, Anisocytosis 2+, Microcytosis 2+, Target Cells 1+, Tear Drop Cells 1+, Ovalocytes 1+, Sodium Level 135L, Potassium Level 4.6, Chloride Level 96L, Carbon Dioxide Level 27, Anion Gap 12, Blood Urea Nitrogen 45H, Creatinine 7.8H , Estimat Glomerular Filtration Rate 6.4, Glucose Level 168H, Calcium Level 8.2L 10/25/18 17:00: Random Vancomycin Level 9.7 Height (Feet): 5 Height (Inches): 5.00 Weight (Pounds): 330 General Appearance: lethargic EENT: normal ENT inspection Neck: normal alignment Cardiovascular: normal peripheral pulses, normal rate, regular rhythm Respiratory/Chest: chest wall non-tender, lungs clear, normal breath sounds Abdomen: normal bowel sounds, non tender, soft Extremities: normal inspection Edema: no edema noted Arm (L), no edema noted Arm (R), no edema noted Leg (L), no edema noted Leg (R), no edema noted Pedal (L), no edema noted Pedal (R), no edema noted Generalized Neurologic: responsive, motor weakness Skin: normal pigmentation, warm/dry Objective right toe dressing c and d Roderick Henning DO Oct 26, 2018 08:25
[2018-10-26] MEDS: Calcium Acetate 667mg Tab ORAL SCH (08:50)
[2018-10-26] MEDS: Allopurinol 100mg Tab ORAL SCH (08:51)
[2018-10-26] MEDS: Heparin 5000 units/ml inj SUBQ SCH (09:00)
--- NOTE | 2018-10-26 09:12 | General Progress Note ---
Assessment/Plan Status: stable, unchanged Assessment/Plan # Anemia of chronic disease due to underlying chronic medical issues, multifactorial. 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 --> Hgb remains low at 6.5 --> Prior anemia w/u has been reviewed. Ferritin >2000 --> No evidence of hemolysis is noted, peripheral smear has been reviewed. --> Hgb goal >7. Transfuse prn. --> EGD 10/24 # Anemia of chronic kidney disease. 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 # End-stage renal disease on hemodialysis. Nephro is following, appreciate recs. --> The patient is on hemodialysis due to mild shortness of breath and mild hyperkalemia. # Mild hyperkalemia, potassium 6.2 on admission --> Currently remains elevated at 5.5 --> The patient has been treated medically in the emergency room. --> The patient was dialyzed for 3-1/2 hours on a 2 potassium bath. # Hypertension. Adjust medications as appropriate. # Diabetes mellitus per primary care physician. --> Cont on insulin --> Cont to monitor BS levels : GREATLY APPRECIATE CONSULTATION. Subjective Date patient seen: Oct 26, 2018 Hematologic/Lymphatic: Reports: anemia Allergies: Coded Allergies: NO KNOWN ALLERGIES (Unverified Allergy, Unknown, 10/15/15) All Systems: reviewed and negative except above Subjective Pt awake and alert. VS stable. O2 NC. Objective Last 24 Hour Vital Signs Date Time Temp Pulse Resp B/P (MAP) Pulse Ox O2 Delivery O2 Flow Rate FiO2 10/26/18 08:50 61 143/86 10/26/18 08:00 97.2 61 20 143/86 (105) 97 10/26/18 04:00 97.3 64 20 139/69 (92) 94 10/26/18 03:40 59 10/26/18 00:00 97.3 63 20 125/68 (87) 94 10/25/18 23:38 63 10/25/18 21:00 Nasal Cannula 2.0 10/25/18 20:26 Nasal Cannula 2.0 28 10/25/18 20:26 82 16 Nasal Cannula 2.0 28 10/25/18 20:26 96 Nasal Cannula 2.0 28 10/25/18 20:00 97.6 67 18 130/65 (86) 100 10/25/18 19:40 62 10/25/18 16:00 71 10/25/18 16:00 97.9 86 18 148/68 (94) 100 10/25/18 12:00 70 10/25/18 12:00 98.7 76 18 140/78 (98) 100 Intake and Output 10/25/18 10/26/18 19:00 07:00 Intake Total 530 ml 350 ml Output Total 0 ml Balance 530 ml 350 ml Intake Oral 530 ml 350 ml Output Urine Total 0 ml Laboratory Tests 10/25/18 10:20: White Blood Count 8.1, Red Blood Count 2.57L, Hemoglobin 6.0*L, Hematocrit 19.9L , Mean Corpuscular Volume 77L, Mean Corpuscular Hemoglobin 23.5L, Mean Corpuscular Hemoglobin Concent 30.3L, Red Cell Distribution Width 18.6H, Platelet Count 164, Mean Platelet Volume 6.1L, Neutrophils (%) (Auto) , Lymphocytes (%) (Auto) , Monocytes (%) (Auto) , Eosinophils (%) (Auto) , Basophils (%) (Auto) , Differential Total Cells Counted 100, Neutrophils % ( Manual) 68, Lymphocytes % (Manual) 17L, Monocytes % (Manual) 4, Eosinophils % ( Manual) 10H, Basophils % (Manual) 1, Band Neutrophils 0, Platelet Estimate Adequate, Platelet Morphology Normal, Polychromasia 2+, Hypochromasia 3+, Anisocytosis 2+, Microcytosis 2+, Target Cells 1+, Tear Drop Cells 1+, Ovalocytes 1+, Sodium Level 135L, Potassium Level 4.6, Chloride Level 96L, Carbon Dioxide Level 27, Anion Gap 12, Blood Urea Nitrogen 45H, Creatinine 7.8H , Estimat Glomerular Filtration Rate 6.4, Glucose Level 168H, Calcium Level 8.2L 10/25/18 17:00: Random Vancomycin Level 9.7 Height (Feet): 5 Height (Inches): 5.00 Weight (Pounds): 330 Objective PHYSICAL EXAMINATION: VITAL SIGNS: Have been reviewed. GENERAL: The patient awake, alert, in mild distress. HEENT: Extraocular muscles intact. No lymphadenopathy noted. CARDIOVASCULAR: S1 and S2. No rubs or gallops. PULMONARY: Clear to auscultation bilaterally. No rales, rhonchi or wheezes. ABDOMINAL: Obese, nondistended and nontender. EXTREMITIES: A 2+ pitting edema. Malick Lizama MD Oct 26, 2018 09:12
--- NOTE | 2018-10-26 09:16 | Nephrology Progress Note ---
Assessment/Plan Assessment/Plan A/P 1) ESRD- HD TTS. Orders placed 2) Hyperk+ - HD today 3) Anemia- Gstritis Patient on EPO and does not accept blood products - check Iron levels 4) HTN- stable 5) PVCs/VTach- per cardiology Subjective Date patient seen: Oct 26, 2018 Time patient seen: 09:14 ROS Limited/Unobtainable: No Allergies: Coded Allergies: NO KNOWN ALLERGIES (Unverified Allergy, Unknown, 10/15/15) Subjective Patient in no distress. Resting in bed Objective Last 24 Hour Vital Signs Date Time Temp Pulse Resp B/P (MAP) Pulse Ox O2 Delivery O2 Flow Rate FiO2 10/26/18 08:50 61 143/86 10/26/18 08:00 97.2 61 20 143/86 (105) 97 10/26/18 04:00 97.3 64 20 139/69 (92) 94 10/26/18 03:40 59 10/26/18 00:00 97.3 63 20 125/68 (87) 94 10/25/18 23:38 63 10/25/18 21:00 Nasal Cannula 2.0 10/25/18 20:26 Nasal Cannula 2.0 28 10/25/18 20:26 82 16 Nasal Cannula 2.0 28 10/25/18 20:26 96 Nasal Cannula 2.0 28 10/25/18 20:00 97.6 67 18 130/65 (86) 100 10/25/18 19:40 62 10/25/18 16:00 71 10/25/18 16:00 97.9 86 18 148/68 (94) 100 10/25/18 12:00 70 10/25/18 12:00 98.7 76 18 140/78 (98) 100 Intake and Output 10/25/18 10/26/18 19:00 07:00 Intake Total 530 ml 350 ml Output Total 0 ml Balance 530 ml 350 ml Intake Oral 530 ml 350 ml Output Urine Total 0 ml Laboratory Tests 10/25/18 10:20: White Blood Count 8.1, Red Blood Count 2.57L, Hemoglobin 6.0*L, Hematocrit 19.9L , Mean Corpuscular Volume 77L, Mean Corpuscular Hemoglobin 23.5L, Mean Corpuscular Hemoglobin Concent 30.3L, Red Cell Distribution Width 18.6H, Platelet Count 164, Mean Platelet Volume 6.1L, Neutrophils (%) (Auto) , Lymphocytes (%) (Auto) , Monocytes (%) (Auto) , Eosinophils (%) (Auto) , Basophils (%) (Auto) , Differential Total Cells Counted 100, Neutrophils % ( Manual) 68, Lymphocytes % (Manual) 17L, Monocytes % (Manual) 4, Eosinophils % ( Manual) 10H, Basophils % (Manual) 1, Band Neutrophils 0, Platelet Estimate Adequate, Platelet Morphology Normal, Polychromasia 2+, Hypochromasia 3+, Anisocytosis 2+, Microcytosis 2+, Target Cells 1+, Tear Drop Cells 1+, Ovalocytes 1+, Sodium Level 135L, Potassium Level 4.6, Chloride Level 96L, Carbon Dioxide Level 27, Anion Gap 12, Blood Urea Nitrogen 45H, Creatinine 7.8H , Estimat Glomerular Filtration Rate 6.4, Glucose Level 168H, Calcium Level 8.2L 10/25/18 17:00: Random Vancomycin Level 9.7 Height (Feet): 5 Height (Inches): 5.00 Weight (Pounds): 330 General Appearance: no apparent distress, alert EENT: normal ENT inspection Neck: normal alignment, supple Cardiovascular: normal rate, regular rhythm Respiratory/Chest: lungs clear, normal breath sounds Abdomen: non tender, soft Edema: no edema noted Arm (L), no edema noted Arm (R), no edema noted Leg (L), no edema noted Leg (R), no edema noted Pedal (L), no edema noted Pedal (R), no edema noted Generalized Nirmal Manley MD Oct 26, 2018 09:16
[2018-10-26 10:27] LABS: HEMATOCRIT 19.9 % (37.0-47.0); MEAN CORPUSCULAR VOLUME 79 FL (80-99); PLATELET COUNT 190 K/UL (150-450); RED BLOOD COUNT 2.51 M/UL (4.20-5.40); RED CELL DISTRIBUTION WIDTH 19.3 % (11.6-14.8); WHITE BLOOD COUNT 8.7 K/UL (4.8-10.8)
[2018-10-26 10:42] LABS: ANION GAP 12 mmol/L (5-15); BLOOD UREA NITROGEN 58 mg/dL (7-18); CALCIUM 8.4 MG/DL (8.5-10.1); CARBON DIOXIDE 27 MMOL/L (21-32); CHLORIDE 94 MMOL/L (98-107); CREATININE 8.9 MG/DL (0.55-1.30); POTASSIUM 5.1 MMOL/L (3.5-5.1); SODIUM 133 MMOL/L (136-145)
[2018-10-26 10:52] LABS: PHOSPHORUS 5.3 MG/DL (2.5-4.9)
--- NOTE | 2018-10-26 11:41 | Infectious Diseases Prog Note ---
Assessment/Plan Assessment/Plan Abx: Ceftriaxone x1 10/22 Assessment: R foot blisters/cellulitis -10/25 s/p bedsdie I+D; wound cx p Gram positive bacteremia- real vs contaminant- r/o line infection -10/22 Bcx 1/4 CONS, 1/4 diphteroids; 10/24 Alph hemolyotic strep (source? periheral or cental line) Afebrile NO Leukocytosis Pyuria- no UTI symptoms -u/a wbc tntc, nitneg, leuk +3; ucx NTD Severe anemia Hyperkalemia SOB 2ry to CHF exacerbation -CXR: Cardiomegaly with pulmonary venous congestion -influenza sc neg ESRD on HD DM2 b/l eye blindness CHF, bradycardia 2ry hyperparathyroidism CAD s/p stent AOCD s/p AVG w recent rupture HTN morbid obesity Plan: -Continue empiric IV Vancomycin # 3for GPC bacteremia and cellulitis -Continue Unasyn #3 and d/c Clindamycin #3 -f/u Repeat 2 sets of Bcx (central line and peripheral) -pending ID and repaet bcx, may need line holiday -f/u cx -Monitor CBC/CMP, temperatures -aspiration precautions -wound care -Podiatry f/u Thank you for this consultation. Will continue to follow along with you. Discussed with RN. Subjective Allergies: Coded Allergies: NO KNOWN ALLERGIES (Unverified Allergy, Unknown, 10/15/15) Subjective afebrile no leukocytosis repaet Bcx p Objective Vital Signs Last 24 Hour Vital Signs Date Time Temp Pulse Resp B/P (MAP) Pulse Ox O2 Delivery O2 Flow Rate FiO2 10/26/18 08:50 61 143/86 10/26/18 08:00 76 10/26/18 08:00 97.2 61 20 143/86 (105) 97 10/26/18 04:00 97.3 64 20 139/69 (92) 94 10/26/18 03:40 59 10/26/18 00:00 97.3 63 20 125/68 (87) 94 10/25/18 23:38 63 10/25/18 21:00 Nasal Cannula 2.0 10/25/18 20:26 Nasal Cannula 2.0 28 10/25/18 20:26 82 16 Nasal Cannula 2.0 28 10/25/18 20:26 96 Nasal Cannula 2.0 28 10/25/18 20:00 97.6 67 18 130/65 (86) 100 10/25/18 19:40 62 10/25/18 16:00 71 10/25/18 16:00 97.9 86 18 148/68 (94) 100 10/25/18 12:00 70 10/25/18 12:00 98.7 76 18 140/78 (98) 100 Height (Feet): 5 Height (Inches): 5.00 Weight (Pounds): 330 Objective GENERAL: The patient awake, alert, in mild distress. HEENT: Extraocular muscles intact. No lymphadenopathy noted. CARDIOVASCULAR: S1 and S2. No rubs or gallops. PULMONARY: Clear to auscultation bilaterally. No rales, rhonchi or wheezes. ABDOMINAL: Obese, nondistended and nontender. EXTREMITIES: A 2+ pitting edema. R foot blisters with surrounding cellulitis Microbiology Date/Time Source Procedure Growth Status 10/24/18 12:00 Blood Blood Culture - Preliminary Strep Species, Alpha Hemolytic Resulted 10/24/18 11:50 Blood Blood Culture - Preliminary NO GROWTH AFTER 24 HOURS Resulted Laboratory Tests Test 10/25/18 17:00 10/26/18 10:00 Random Vancomycin Level 9.7 ug/mL White Blood Count 8.7 K/UL (4.8-10.8) Red Blood Count 2.51 M/UL (4.20-5.40) L Hemoglobin 6.0 G/DL (12.0-16.0) *L Hematocrit 19.9 % (37.0-47.0) L Mean Corpuscular Volume 79 FL (80-99) L Mean Corpuscular Hemoglobin 23.9 PG (27.0-31.0) L Mean Corpuscular Hemoglobin Concent 30.1 G/DL (32.0-36.0) L Red Cell Distribution Width 19.3 % (11.6-14.8) H Platelet Count 190 K/UL (150-450) Mean Platelet Volume 6.3 FL (6.5-10.1) L Neutrophils (%) (Auto) % (45.0-75.0) Lymphocytes (%) (Auto) % (20.0-45.0) Monocytes (%) (Auto) % (1.0-10.0) Eosinophils (%) (Auto) % (0.0-3.0) Basophils (%) (Auto) % (0.0-2.0) Differential Total Cells Counted 100 Neutrophils % (Manual) 58 % (45-75) Lymphocytes % (Manual) 16 % (20-45) L Monocytes % (Manual) 11 % (1-10) H Eosinophils % (Manual) 13 % (0-3) H Basophils % (Manual) 0 % (0-2) Band Neutrophils 2 % (0-8) Platelet Estimate Adequate Platelet Morphology Normal Hypochromasia 4+ Poikilocytosis 1+ Anisocytosis 2+ Microcytosis 1+ Sodium Level 133 MMOL/L (136-145) L Potassium Level 5.1 MMOL/L (3.5-5.1) Chloride Level 94 MMOL/L (98-107) L Carbon Dioxide Level 27 MMOL/L (21-32) Anion Gap 12 mmol/L (5-15) Blood Urea Nitrogen 58 mg/dL (7-18) H Creatinine 8.9 MG/DL (0.55-1.30) H Estimat Glomerular Filtration Rate 5.5 mL/min (>60) Glucose Level 157 MG/DL (74-106) H Calcium Level 8.4 MG/DL (8.5-10.1) L Phosphorus Level 5.3 MG/DL (2.5-4.9) H Magnesium Level 2.6 MG/DL (1.8-2.4) H Current Medications Medications (Trade) Dose Ordered Sig/Josi Route PRN Reason Start Time Stop Time Status Last Admin Dose Admin Acetaminophen (Tylenol) 650 mg Q4H PRN ORAL fever 10/22/18 13:28 11/21/18 13:27 Albuterol/ Ipratropium (Albuterol/ Ipratropium) 3 ml Q6H PRN HHN dyspnea 10/22/18 13:30 10/27/18 13:29 Allopurinol (Zyloprim) 100 mg DAILY ORAL 10/23/18 09:00 11/22/18 08:59 10/26/18 08:51 Amlodipine Besylate (Norvasc) 10 mg DAILY ORAL 10/24/18 09:00 11/23/18 08:59 10/26/18 08:50 Ampicillin Sodium/ Sulbactam Sodium 3 gm/Sodium Chloride 110 ml @ 220 mls/hr Q24H IVPB 10/24/18 18:00 10/31/18 17:59 10/25/18 17:07 Atorvastatin Calcium (Lipitor) 20 mg BEDTIME ORAL 10/22/18 21:00 11/21/18 20:59 10/25/18 21:23 Calcium Acetate (Phoslo) 667 mg DAILY ORAL 10/23/18 09:00 11/22/18 08:59 10/26/18 08:50 Clindamycin HCl (Cleocin) 600 mg Q8HR ORAL 10/24/18 18:00 10/31/18 17:59 10/26/18 05:44 Clonidine HCl (Catapres Tab) 0.1 mg Q4H PRN ORAL For High Blood Pressure 10/22/18 13:30 11/21/18 13:29 10/23/18 08:39 Dextrose (Dextrose 50%) 25 ml Q30M PRN IV Hypoglycemia 10/22/18 13:45 11/21/18 13:30 Dextrose (Dextrose 50%) 50 ml Q30M PRN IV hypoglycemia 10/22/18 13:45 11/21/18 13:44 10/23/18 11:41 Diphenhydramine HCl (Benadryl) 25 mg Q8H PRN ORAL Itching 10/25/18 06:45 11/24/18 06:44 10/26/18 10:07 Epoetin Jose De Jesus (Procrit (for ESRD on dialysis)) 10,000 units SUN-SUN-SUN SUBQ 10/23/18 21:00 11/22/18 20:59 10/25/18 21:24 Gabapentin (Neurontin) 400 mg BID ORAL 10/24/18 18:00 11/23/18 17:59 10/26/18 08:50 Heparin Sodium (Porcine) (Heparin 5000 units/ml) 5,000 units EVERY 12 HOURS SUBQ 10/22/18 21:00 11/21/18 20:59 10/25/18 09:10 Insulin Aspart (NovoLOG) BEFORE MEALS AND HS SUBQ 10/22/18 16:30 11/21/18 16:29 10/26/18 06:32 Morphine Sulfate (Morphine Sulfate) 1 mg Q4H PRN IVP For Pain 10/22/18 13:30 10/29/18 13:29 10/25/18 21:29 Ondansetron HCl (Zofran) 4 mg Q6H PRN IVP Nausea & Vomiting 10/22/18 13:30 11/21/18 13:29 10/26/18 05:37 Sevelamer Carbonate (Renvela) 800 mg THREE TIMES A DAY ORAL 10/22/18 18:00 11/21/18 17:59 10/26/18 08:50 Vancomycin HCl (Vanco rx to dose) 1 ea DAILY PRN MISC Per rx protocol 10/24/18 11:15 11/23/18 11:14 Zolpidem Tartrate (Ambien) 5 mg HSPRN PRN ORAL Insomnia 10/22/18 13:30 10/29/18 13:29 Susi Vanegas M.D. Oct 26, 2018 11:41
[2018-10-26 12:00] VITALS: BP 148/79
[2018-10-26] MEDS ORDERED: Albuterol/Ipratropium 3ml neb HHN PRN (12:33)
--- NOTE | 2018-10-26 15:11 | Cardiac Electrophysiology PN ---
Assessment/Plan Assessment/Plan 1. Congestive heart failure due to hypertensive heart disease and diastolic dysfunction. Echocardiogram showed EF 55%. Continue dialysis. 2. Hypertensive heart disease. On Norvasc 10 mg daily and HD. On p.r.n.clonidine. 3. recurrent non sustained VTs up to 11 beats. No syncope. Nl EF Stress test after sepsis cleared 4. Bradycardia, keep offff Beta blockers 5. Hyperlipidemia, on Lipitor. 6. Positive blood culture and Right toe blister. Podiatry and ID FU. S/P Debridement On Vancomycin 7. End-stage renal disease, on hemodialysis. 8. NIDDM DW RN Subjective Subjective No CP or SOB. Scheduled for HD today.Had 7 beats of VT last night. Occasional PVCs Objective Last 24 Hour Vital Signs Date Time Temp Pulse Resp B/P (MAP) Pulse Ox O2 Delivery O2 Flow Rate FiO2 10/26/18 12:00 66 10/26/18 09:00 Nasal Cannula 2.0 10/26/18 08:50 61 143/86 10/26/18 08:00 76 10/26/18 08:00 97.2 61 20 143/86 (105) 97 10/26/18 04:00 97.3 64 20 139/69 (92) 94 10/26/18 03:40 59 10/26/18 00:00 97.3 63 20 125/68 (87) 94 10/25/18 23:38 63 10/25/18 21:00 Nasal Cannula 2.0 10/25/18 20:26 Nasal Cannula 2.0 28 10/25/18 20:26 82 16 Nasal Cannula 2.0 28 10/25/18 20:26 96 Nasal Cannula 2.0 28 10/25/18 20:00 97.6 67 18 130/65 (86) 100 10/25/18 19:40 62 10/25/18 16:00 71 10/25/18 16:00 97.9 86 18 148/68 (94) 100 Intake and Output 10/25/18 10/26/18 18:59 06:59 Intake Total 530 ml 350 ml Output Total 0 ml Balance 530 ml 350 ml Intake Oral 530 ml 350 ml Output Urine Total 0 ml Laboratory Tests Test 10/25/18 17:00 10/26/18 10:00 Random Vancomycin Level 9.7 ug/mL White Blood Count 8.7 K/UL (4.8-10.8) Red Blood Count 2.51 M/UL (4.20-5.40) L Hemoglobin 6.0 G/DL (12.0-16.0) *L Hematocrit 19.9 % (37.0-47.0) L Mean Corpuscular Volume 79 FL (80-99) L Mean Corpuscular Hemoglobin 23.9 PG (27.0-31.0) L Mean Corpuscular Hemoglobin Concent 30.1 G/DL (32.0-36.0) L Red Cell Distribution Width 19.3 % (11.6-14.8) H Platelet Count 190 K/UL (150-450) Mean Platelet Volume 6.3 FL (6.5-10.1) L Neutrophils (%) (Auto) % (45.0-75.0) Lymphocytes (%) (Auto) % (20.0-45.0) Monocytes (%) (Auto) % (1.0-10.0) Eosinophils (%) (Auto) % (0.0-3.0) Basophils (%) (Auto) % (0.0-2.0) Differential Total Cells Counted 100 Neutrophils % (Manual) 58 % (45-75) Lymphocytes % (Manual) 16 % (20-45) L Monocytes % (Manual) 11 % (1-10) H Eosinophils % (Manual) 13 % (0-3) H Basophils % (Manual) 0 % (0-2) Band Neutrophils 2 % (0-8) Platelet Estimate Adequate Platelet Morphology Normal Hypochromasia 4+ Poikilocytosis 1+ Anisocytosis 2+ Microcytosis 1+ Sodium Level 133 MMOL/L (136-145) L Potassium Level 5.1 MMOL/L (3.5-5.1) Chloride Level 94 MMOL/L (98-107) L Carbon Dioxide Level 27 MMOL/L (21-32) Anion Gap 12 mmol/L (5-15) Blood Urea Nitrogen 58 mg/dL (7-18) H Creatinine 8.9 MG/DL (0.55-1.30) H Estimat Glomerular Filtration Rate 5.5 mL/min (>60) Glucose Level 157 MG/DL (74-106) H Calcium Level 8.4 MG/DL (8.5-10.1) L Phosphorus Level 5.3 MG/DL (2.5-4.9) H Magnesium Level 2.6 MG/DL (1.8-2.4) H Microbiology Date/Time Source Procedure Growth Status 10/24/18 12:00 Blood Blood Culture - Preliminary Strep Species, Alpha Hemolytic Resulted 10/24/18 11:50 Blood Blood Culture - Preliminary NO GROWTH AFTER 24 HOURS Resulted Objective HEAD AND NECK: No jugular venous distention. LUNGS: Decreased breath sounds. CARDIOVASCULAR: Regular S1 and S2 with no gallop. ABDOMEN: Morbidly obese. EXTREMITIES: 1+ pitting edema.Right big toe s/p I&D Shalom Vinson MD Oct 26, 2018 15:11
[2018-10-26 16:00] VITALS: BP 148/89
[2018-10-26] MEDS ORDERED: Tubing IV Secondary IV ONE (16:08)
[2018-10-26] MEDS: Ampicillin/Sulbactam Sod 3 GM in NS 110 ML IVPB SCH (17:29)
[2018-10-26 20:00] VITALS: BP 116/66
[2018-10-27] VITALS: BP 125/60
[2018-10-27 04:00] VITALS: BP 144/56
[2018-10-27] MEDS: Morphine Sulfate 2mg/ml Inj IVP PRN ×2 (04:26→13:28)
[2018-10-27] MEDS: NovoLOG Insulin Flexpen SUBQ SCH ×4 (05:50→20:32)
[2018-10-27 08:00] VITALS: BP 155/86
--- NOTE | 2018-10-27 08:16 | Pulmonology Progress Note ---
Assessment/Plan Assessment/Plan ASSESSMENT Acute respiratory failure secondary to fluid overload- resolving ESRD, on HD R foot bulla, s/p I&D 10/25 R foot cellulitis Bacteremia -real vs contaminant Diabetes mellitus COPD Hypertension Morbid obesity Anemia of chronic kidney disease Hyperlipidemia s/p EGD 10/24 PLAN OF CARE tele O2 to keep sat above 92%, pulmonary toilet prn initial CXR with evidence of cardiomegaly and vascular congestion HD as per him clerk with close monitoring of volumes and cardiorenal parameters correct electrolytes as needed BC 2/ Strep alpha hemolytic, real vs contaminant, abx as per ID recs repeat BC as per ID recs from [facility] and peripherally urine cx and influenza screen negative X ray bilateral foot - no evidence of OM s/p I&D 10/25 wound care as per supervisor roller shop recs fup with wound cx BP management with CCB and clonidine prn BS management with SSI, optimize further as needed- per PMD monitor HH, patient Yazidism and wont accept blood transfusion anemia w/up noted, high ferritin , HH trending down continue EPO stool OB negative s/p EGD 10/24 venous Duplex BLE stat if negative start SCD and dc Heparin GI follows PT/OT supportive care case discussed and evaluated by supervising physician Subjective Allergies: Coded Allergies: NO KNOWN ALLERGIES (Unverified Allergy, Unknown, 10/15/15) Subjective HH down to 6.0/19.9 - 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 afebrile no leukocytosis no signs of resp distress Objective Last 24 Hour Vital Signs Date Time Temp Pulse Resp B/P (MAP) Pulse Ox O2 Delivery O2 Flow Rate FiO2 10/27/18 07:51 73 16 Nasal Cannula 2.0 28 10/27/18 07:51 Nasal Cannula 2.0 28 10/27/18 07:51 97 Nasal Cannula 2.0 28 10/27/18 04:00 74 10/27/18 04:00 98.0 54 20 144/56 (85) 94 10/27/18 00:00 60 10/27/18 00:00 97.7 58 20 125/60 (81) 98 10/26/18 21:00 Nasal Cannula 2.0 10/26/18 20:30 Nasal Cannula 2.0 28 10/26/18 20:30 98 Nasal Cannula 2.0 28 10/26/18 20:30 82 18 Nasal Cannula 2.0 28 10/26/18 20:00 75 10/26/18 20:00 97.8 67 20 116/66 (83) 97 10/26/18 16:00 97.4 61 20 148/89 (108) 100 10/26/18 16:00 61 10/26/18 12:00 97.6 60 20 148/79 (102) 100 10/26/18 12:00 66 10/26/18 09:00 Nasal Cannula 2.0 10/26/18 08:50 61 143/86 Intake and Output 10/26/18 10/27/18 19:00 07:00 Intake Total 360 ml 240 ml Output Total 0 ml Balance 360 ml 240 ml Intake Oral 360 ml 240 ml Output Urine Total 0 ml Objective General Appearance: no acute distress, obese, awake, alert, oriented AA female HEENT: normocephalic, atraumatic, anicteric, blind bilaterally Respiratory/Chest: decreased breath sounds Cardiovascular: normal rate , on tele SR with 1 st degree AV block and multiple PVCs Abdomen: normal bowel sounds, soft, non tender - obese Extremities: no edema, pedal pulses normal, R foot blisters, redness, tender to touch Neurologic/Psychiatric: abnormal gait, alert, responsive, normal mood/affect Microbiology Date/Time Source Procedure Growth Status 10/25/18 19:00 Blood Blood Culture - Preliminary NO GROWTH AFTER 24 HOURS Resulted 10/24/18 12:00 Blood Blood Culture - Preliminary Strep Species, Alpha Hemolytic Resulted 10/24/18 11:50 Blood Blood Culture - Preliminary NO GROWTH AFTER 48 HOURS Resulted Laboratory Tests 10/26/18 10:00: White Blood Count 8.7, Red Blood Count 2.51L, Hemoglobin 6.0*L, Hematocrit 19.9L , Mean Corpuscular Volume 79L, Mean Corpuscular Hemoglobin 23.9L, Mean Corpuscular Hemoglobin Concent 30.1L, Red Cell Distribution Width 19.3H, Platelet Count 190, Mean Platelet Volume 6.3L, Neutrophils (%) (Auto) , Lymphocytes (%) (Auto) , Monocytes (%) (Auto) , Eosinophils (%) (Auto) , Basophils (%) (Auto) , Differential Total Cells Counted 100, Neutrophils % ( Manual) 58, Lymphocytes % (Manual) 16L, Monocytes % (Manual) 11H, Eosinophils % (Manual) 13H, Basophils % (Manual) 0, Band Neutrophils 2, Platelet Estimate Adequate, Platelet Morphology Normal, Hypochromasia 4+, Poikilocytosis 1+, Anisocytosis 2+, Microcytosis 1+, Sodium Level 133L, Potassium Level 5.1, Chloride Level 94L, Carbon Dioxide Level 27, Anion Gap 12, Blood Urea Nitrogen 58H, Creatinine 8.9H, Estimat Glomerular Filtration Rate 5.5, Glucose Level 157H , Calcium Level 8.4L, Phosphorus Level 5.3H, Magnesium Level 2.6H Current Medications Medications (Trade) Dose Ordered Sig/Josi Route PRN Reason Start Time Stop Time Status Last Admin Dose Admin Acetaminophen (Tylenol) 650 mg Q4H PRN ORAL fever 10/22/18 13:28 11/21/18 13:27 Albuterol/ Ipratropium (Albuterol/ Ipratropium) 3 ml Q6H PRN HHN dyspnea 10/26/18 12:33 10/31/18 12:32 Allopurinol (Zyloprim) 100 mg DAILY ORAL 10/23/18 09:00 11/22/18 08:59 10/26/18 08:51 Amlodipine Besylate (Norvasc) 10 mg DAILY ORAL 10/24/18 09:00 11/23/18 08:59 10/26/18 08:50 Ampicillin Sodium/ Sulbactam Sodium 3 gm/Sodium Chloride 110 ml @ 220 mls/hr Q24H IVPB 10/24/18 18:00 10/31/18 17:59 10/26/18 17:29 Atorvastatin Calcium (Lipitor) 20 mg BEDTIME ORAL 10/22/18 21:00 11/21/18 20:59 10/27/18 01:36 Calcium Acetate (Phoslo) 667 mg DAILY ORAL 10/23/18 09:00 11/22/18 08:59 10/26/18 08:50 Clonidine HCl (Catapres Tab) 0.1 mg Q4H PRN ORAL For High Blood Pressure 10/22/18 13:30 11/21/18 13:29 10/23/18 08:39 Dextrose (Dextrose 50%) 25 ml Q30M PRN IV Hypoglycemia 10/22/18 13:45 11/21/18 13:30 Dextrose (Dextrose 50%) 50 ml Q30M PRN IV hypoglycemia 10/22/18 13:45 11/21/18 13:44 10/23/18 11:41 Diphenhydramine HCl (Benadryl) 25 mg Q8H PRN ORAL Itching 10/25/18 06:45 11/24/18 06:44 10/27/18 01:35 Epoetin Jose De Jesus (Procrit (for ESRD on dialysis)) 10,000 units SUN-SUN-SUN SUBQ 10/23/18 21:00 11/22/18 20:59 10/25/18 21:24 Gabapentin (Neurontin) 400 mg BID ORAL 10/24/18 18:00 11/23/18 17:59 10/26/18 17:28 Insulin Aspart (NovoLOG) BEFORE MEALS AND HS SUBQ 10/22/18 16:30 11/21/18 16:29 10/27/18 05:50 Morphine Sulfate (Morphine Sulfate) 1 mg Q4H PRN IVP For Pain 10/22/18 13:30 10/29/18 13:29 10/27/18 04:26 Ondansetron HCl (Zofran) 4 mg Q6H PRN IVP Nausea & Vomiting 10/22/18 13:30 11/21/18 13:29 10/26/18 05:37 Sevelamer Carbonate (Renvela) 800 mg THREE TIMES A DAY ORAL 10/22/18 18:00 11/21/18 17:59 10/26/18 17:28 Vancomycin HCl (Vanco rx to dose) 1 ea DAILY PRN MISC Per rx protocol 10/24/18 11:15 11/23/18 11:14 Zolpidem Tartrate (Ambien) 5 mg HSPRN PRN ORAL Insomnia 10/22/18 13:30 10/29/18 13:29 Chastity Velasco NP Oct 27, 2018 08:16
--- NOTE | 2018-10-27 08:27 | General Progress Note ---
Assessment/Plan Problem List: (1) Congestive heart failure (CHF) ICD Codes: I50.9 - Heart failure, unspecified SNOMED: 68243797 (2) Anemia ICD Codes: D64.9 - Anemia, unspecified SNOMED: 553960692 Qualifiers: Qualified Codes: D64.9 - Anemia, unspecified (3) Hypertension ICD Codes: I10 - Essential (primary) hypertension SNOMED: 63405797 (4) Morbid obesity ICD Codes: E66.01 - Morbid (severe) obesity due to excess calories SNOMED: 429045305, 70416572407268 (5) End stage renal disease on dialysis ICD Codes: N18.6 - End stage renal failure on dialysis; Z99.2 - Dependence on renal dialysis SNOMED: 567919301 (6) Open wound of right great toe ICD Codes: S91.101A - Unspecified open wound of right great toe without damage to nail, initial encounter SNOMED: 989682763 Status: stable, progressing Assessment/Plan wound care ot pt diet dialysis heme f/u podiatry eval cbc bmp am aru eval Subjective Constitutional: Reports: weakness Respiratory: Reports: shortness of breath Allergies: Coded Allergies: NO KNOWN ALLERGIES (Unverified Allergy, Unknown, 10/15/15) All Systems: reviewed and negative except above Subjective o2nc sl gen pain Objective Last 24 Hour Vital Signs Date Time Temp Pulse Resp B/P (MAP) Pulse Ox O2 Delivery O2 Flow Rate FiO2 10/27/18 07:51 73 16 Nasal Cannula 2.0 28 10/27/18 07:51 Nasal Cannula 2.0 28 10/27/18 07:51 97 Nasal Cannula 2.0 28 10/27/18 04:00 74 10/27/18 04:00 98.0 54 20 144/56 (85) 94 10/27/18 00:00 60 10/27/18 00:00 97.7 58 20 125/60 (81) 98 10/26/18 21:00 Nasal Cannula 2.0 10/26/18 20:30 Nasal Cannula 2.0 28 10/26/18 20:30 98 Nasal Cannula 2.0 28 10/26/18 20:30 82 18 Nasal Cannula 2.0 28 10/26/18 20:00 75 10/26/18 20:00 97.8 67 20 116/66 (83) 97 10/26/18 16:00 97.4 61 20 148/89 (108) 100 10/26/18 16:00 61 10/26/18 12:00 97.6 60 20 148/79 (102) 100 10/26/18 12:00 66 10/26/18 09:00 Nasal Cannula 2.0 10/26/18 08:50 61 143/86 Intake and Output 10/26/18 10/27/18 19:00 07:00 Intake Total 360 ml 240 ml Output Total 0 ml Balance 360 ml 240 ml Intake Oral 360 ml 240 ml Output Urine Total 0 ml Laboratory Tests 10/26/18 10:00: White Blood Count 8.7, Red Blood Count 2.51L, Hemoglobin 6.0*L, Hematocrit 19.9L , Mean Corpuscular Volume 79L, Mean Corpuscular Hemoglobin 23.9L, Mean Corpuscular Hemoglobin Concent 30.1L, Red Cell Distribution Width 19.3H, Platelet Count 190, Mean Platelet Volume 6.3L, Neutrophils (%) (Auto) , Lymphocytes (%) (Auto) , Monocytes (%) (Auto) , Eosinophils (%) (Auto) , Basophils (%) (Auto) , Differential Total Cells Counted 100, Neutrophils % ( Manual) 58, Lymphocytes % (Manual) 16L, Monocytes % (Manual) 11H, Eosinophils % (Manual) 13H, Basophils % (Manual) 0, Band Neutrophils 2, Platelet Estimate Adequate, Platelet Morphology Normal, Hypochromasia 4+, Poikilocytosis 1+, Anisocytosis 2+, Microcytosis 1+, Sodium Level 133L, Potassium Level 5.1, Chloride Level 94L, Carbon Dioxide Level 27, Anion Gap 12, Blood Urea Nitrogen 58H, Creatinine 8.9H, Estimat Glomerular Filtration Rate 5.5, Glucose Level 157H , Calcium Level 8.4L, Phosphorus Level 5.3H, Magnesium Level 2.6H Height (Feet): 5 Height (Inches): 5.00 Weight (Pounds): 329 General Appearance: lethargic EENT: normal ENT inspection Neck: normal alignment Cardiovascular: normal peripheral pulses, normal rate, regular rhythm Respiratory/Chest: chest wall non-tender, decreased breath sounds Abdomen: normal bowel sounds, non tender, soft Extremities: normal inspection Edema: no edema noted Arm (L), no edema noted Arm (R), no edema noted Leg (L), no edema noted Leg (R), no edema noted Pedal (L), no edema noted Pedal (R), no edema noted Generalized Neurologic: motor weakness Skin: normal pigmentation, warm/dry Objective right toe dressing c and d Roderick Henning DO Oct 27, 2018 08:27
[2018-10-27] MEDS: Calcium Acetate 667mg Tab ORAL SCH (08:41)
[2018-10-27] MEDS: Allopurinol 100mg Tab ORAL SCH (08:42)
--- NOTE | 2018-10-27 08:51 | General Progress Note ---
Assessment/Plan Problem List: (1) End stage renal disease on dialysis ICD Codes: N18.6 - End stage renal failure on dialysis; Z99.2 - Dependence on renal dialysis SNOMED: 416223369 (2) Blindness of both eyes ICD Codes: H54.0 - Blindness SNOMED: 045176142 (3) Morbid obesity ICD Codes: E66.01 - Morbid (severe) obesity due to excess calories SNOMED: 245784839, 23028392078925 (4) Coronary artery disease ICD Codes: I25.10 - Coronary artery disease SNOMED: 74967479 (5) History of colonic polyps ICD Codes: Z86.010 - Personal history of colonic polyps SNOMED: 865606547 (6) Hypertension ICD Codes: I10 - Essential (primary) hypertension SNOMED: 50525341 (7) Anemia ICD Codes: D64.9 - Anemia, unspecified SNOMED: 949514859 Qualifiers: Qualified Codes: D64.9 - Anemia, unspecified Assessment/Plan Hx of recent colonoscopy at [facility] which was unremarkable OB stool negative. s/p EGD >> gastritis, no active source of bleeding monitor H&H bowel regime ppi fu labs patient refuse blood transfusion Subjective ROS Limited/Unobtainable: Yes Allergies: Coded Allergies: NO KNOWN ALLERGIES (Unverified Allergy, Unknown, 10/15/15) Objective Last 24 Hour Vital Signs Date Time Temp Pulse Resp B/P (MAP) Pulse Ox O2 Delivery O2 Flow Rate FiO2 10/27/18 08:42 92 155/86 10/27/18 08:00 98.0 92 18 155/86 (109) 100 10/27/18 07:51 73 16 Nasal Cannula 2.0 28 10/27/18 07:51 Nasal Cannula 2.0 28 10/27/18 07:51 97 Nasal Cannula 2.0 28 10/27/18 04:00 74 10/27/18 04:00 98.0 54 20 144/56 (85) 94 10/27/18 00:00 60 10/27/18 00:00 97.7 58 20 125/60 (81) 98 10/26/18 21:00 Nasal Cannula 2.0 10/26/18 20:30 Nasal Cannula 2.0 28 10/26/18 20:30 98 Nasal Cannula 2.0 28 10/26/18 20:30 82 18 Nasal Cannula 2.0 28 10/26/18 20:00 75 10/26/18 20:00 97.8 67 20 116/66 (83) 97 10/26/18 16:00 97.4 61 20 148/89 (108) 100 10/26/18 16:00 61 10/26/18 12:00 97.6 60 20 148/79 (102) 100 10/26/18 12:00 66 10/26/18 09:00 Nasal Cannula 2.0 Intake and Output 10/26/18 10/27/18 19:00 07:00 Intake Total 360 ml 240 ml Output Total 0 ml Balance 360 ml 240 ml Intake Oral 360 ml 240 ml Output Urine Total 0 ml Laboratory Tests 10/26/18 10:00: White Blood Count 8.7, Red Blood Count 2.51L, Hemoglobin 6.0*L, Hematocrit 19.9L , Mean Corpuscular Volume 79L, Mean Corpuscular Hemoglobin 23.9L, Mean Corpuscular Hemoglobin Concent 30.1L, Red Cell Distribution Width 19.3H, Platelet Count 190, Mean Platelet Volume 6.3L, Neutrophils (%) (Auto) , Lymphocytes (%) (Auto) , Monocytes (%) (Auto) , Eosinophils (%) (Auto) , Basophils (%) (Auto) , Differential Total Cells Counted 100, Neutrophils % ( Manual) 58, Lymphocytes % (Manual) 16L, Monocytes % (Manual) 11H, Eosinophils % (Manual) 13H, Basophils % (Manual) 0, Band Neutrophils 2, Platelet Estimate Adequate, Platelet Morphology Normal, Hypochromasia 4+, Poikilocytosis 1+, Anisocytosis 2+, Microcytosis 1+, Sodium Level 133L, Potassium Level 5.1, Chloride Level 94L, Carbon Dioxide Level 27, Anion Gap 12, Blood Urea Nitrogen 58H, Creatinine 8.9H, Estimat Glomerular Filtration Rate 5.5, Glucose Level 157H , Calcium Level 8.4L, Phosphorus Level 5.3H, Magnesium Level 2.6H Height (Feet): 5 Height (Inches): 5.00 Weight (Pounds): 329 General Appearance: alert EENT: normal ENT inspection Neck: supple Cardiovascular: normal rate Respiratory/Chest: decreased breath sounds Abdomen: normal bowel sounds, non tender, soft Extremities: non-tender Jamison Garcia MD Oct 27, 2018 08:51
--- NOTE | 2018-10-27 10:05 | Nephrology Progress Note ---
Assessment/Plan Assessment/Plan A/P 1) ESRD- HD TTS. 2) Hyperk+ - resolved post HD 3) Anemia- Gastritis. Per Heme mgmt - On EPo. Patient does not accept blood 4) HTN- stable 5) PVCs/VTach- per cardiology Subjective Date patient seen: Oct 27, 2018 Time patient seen: 10:03 ROS Limited/Unobtainable: No Allergies: Coded Allergies: NO KNOWN ALLERGIES (Unverified Allergy, Unknown, 10/15/15) Subjective Patient in no distress feeling better. Had HD yesterday Objective Last 24 Hour Vital Signs Date Time Temp Pulse Resp B/P (MAP) Pulse Ox O2 Delivery O2 Flow Rate FiO2 10/27/18 08:42 92 155/86 10/27/18 08:00 98.0 92 18 155/86 (109) 100 10/27/18 08:00 72 10/27/18 07:51 73 16 Nasal Cannula 2.0 28 10/27/18 07:51 Nasal Cannula 2.0 28 10/27/18 07:51 97 Nasal Cannula 2.0 28 10/27/18 04:00 74 10/27/18 04:00 98.0 54 20 144/56 (85) 94 10/27/18 00:00 60 10/27/18 00:00 97.7 58 20 125/60 (81) 98 10/26/18 21:00 Nasal Cannula 2.0 10/26/18 20:30 Nasal Cannula 2.0 28 10/26/18 20:30 98 Nasal Cannula 2.0 28 10/26/18 20:30 82 18 Nasal Cannula 2.0 28 10/26/18 20:00 75 10/26/18 20:00 97.8 67 20 116/66 (83) 97 10/26/18 16:00 97.4 61 20 148/89 (108) 100 10/26/18 16:00 61 10/26/18 12:00 97.6 60 20 148/79 (102) 100 10/26/18 12:00 66 Intake and Output 10/26/18 10/27/18 19:00 07:00 Intake Total 360 ml 240 ml Output Total 0 ml Balance 360 ml 240 ml Intake Oral 360 ml 240 ml Output Urine Total 0 ml Height (Feet): 5 Height (Inches): 5.00 Weight (Pounds): 329 General Appearance: no apparent distress, alert EENT: normal ENT inspection Neck: normal alignment, supple Cardiovascular: normal rate, regular rhythm Respiratory/Chest: lungs clear, normal breath sounds Abdomen: non tender, soft Edema: no edema noted Arm (L), no edema noted Arm (R), no edema noted Leg (L), no edema noted Leg (R), no edema noted Pedal (L), no edema noted Pedal (R), no edema noted Generalized Nirmal Manley MD Oct 27, 2018 10:05
[2018-10-27 10:51] LABS: HEMATOCRIT 20.4 % (37.0-47.0); MEAN CORPUSCULAR VOLUME 80 FL (80-99); PLATELET COUNT 226 K/UL (150-450); RED BLOOD COUNT 2.57 M/UL (4.20-5.40); RED CELL DISTRIBUTION WIDTH 19.9 % (11.6-14.8); WHITE BLOOD COUNT 9.5 K/UL (4.8-10.8)
[2018-10-27 10:58] LABS: HEMOGLOBIN 6.1 G/DL (12.0-16.0)
[2018-10-27 11:00] LABS: ANION GAP 10 mmol/L (5-15); BLOOD UREA NITROGEN 45 mg/dL (7-18); CALCIUM 8.7 MG/DL (8.5-10.1); CARBON DIOXIDE 27 MMOL/L (21-32); CHLORIDE 99 MMOL/L (98-107); CREATININE 7.4 MG/DL (0.55-1.30); SODIUM 135 MMOL/L (136-145)
[2018-10-27 12:00] VITALS: BP 146/72
[2018-10-27] MEDS ORDERED: Miralax 17gm pkt ORAL PRN (12:39)
--- NOTE | 2018-10-27 13:09 | General Progress Note ---
Assessment/Plan Status: stable Assessment/Plan # Anemia of chronic disease due to underlying chronic medical issues, multifactorial. 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 --> Hgb remains low at 6.5 --> Prior anemia w/u has been reviewed. Ferritin >2000 --> No evidence of hemolysis is noted, peripheral smear has been reviewed. --> Hgb goal >7. Transfuse prn. --> EGD 10/24 # Anemia of chronic kidney disease. 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 # End-stage renal disease on hemodialysis. Nephro is following, appreciate recs. --> The patient is on hemodialysis due to mild shortness of breath and mild hyperkalemia. # Mild hyperkalemia, potassium 6.2 on admission --> Currently remains elevated at 5.5 --> The patient has been treated medically in the emergency room. --> The patient was dialyzed for 3-1/2 hours on a 2 potassium bath. # Hypertension. Adjust medications as appropriate. # Diabetes mellitus per primary care physician. --> Cont on insulin --> Cont to monitor BS levels : GREATLY APPRECIATE CONSULTATION. Subjective Date patient seen: Oct 27, 2018 Allergies: Coded Allergies: NO KNOWN ALLERGIES (Unverified Allergy, Unknown, 10/15/15) All Systems: reviewed and negative except above Subjective Pt awake and alert. VS stable. O2 NC. Objective Last 24 Hour Vital Signs Date Time Temp Pulse Resp B/P (MAP) Pulse Ox O2 Delivery O2 Flow Rate FiO2 10/27/18 12:00 98.0 70 18 146/72 (96) 100 10/27/18 12:00 68 10/27/18 09:00 Room Air 10/27/18 09:00 Room Air 10/27/18 08:42 92 155/86 10/27/18 08:00 98.0 92 18 155/86 (109) 100 10/27/18 08:00 72 10/27/18 07:51 73 16 Nasal Cannula 2.0 28 10/27/18 07:51 Nasal Cannula 2.0 28 10/27/18 07:51 97 Nasal Cannula 2.0 28 10/27/18 04:00 74 10/27/18 04:00 98.0 54 20 144/56 (85) 94 10/27/18 00:00 60 12/2/18 00:00 97.7 58 20 125/60 (81) 98 10/26/18 21:00 Nasal Cannula 2.0 10/26/18 20:30 Nasal Cannula 2.0 28 10/26/18 20:30 98 Nasal Cannula 2.0 28 10/26/18 20:30 82 18 Nasal Cannula 2.0 28 10/26/18 20:00 75 10/26/18 20:00 97.8 67 20 116/66 (83) 97 10/26/18 16:00 97.4 61 20 148/89 (108) 100 10/26/18 16:00 61 Intake and Output 10/26/18 10/27/18 19:00 07:00 Intake Total 360 ml 240 ml Output Total 0 ml Balance 360 ml 240 ml Intake Oral 360 ml 240 ml Output Urine Total 0 ml Laboratory Tests 10/27/18 10:05: White Blood Count 9.5, Red Blood Count 2.57L, Hemoglobin 6.1*L, Hematocrit 20.4L , Mean Corpuscular Volume 80, Mean Corpuscular Hemoglobin 23.9L, Mean Corpuscular Hemoglobin Concent 30.1L, Red Cell Distribution Width 19.9H, Platelet Count 226, Mean Platelet Volume 7.3, Neutrophils (%) (Auto) , Lymphocytes (%) (Auto) , Monocytes (%) (Auto) , Eosinophils (%) (Auto) , Basophils (%) (Auto) , Neutrophils % (Manual) [Pending], Lymphocytes % (Manual) [Pending], Platelet Estimate [Pending], Platelet Morphology [Pending], Sodium Level 135L, Potassium Level 5.0, Chloride Level 99, Carbon Dioxide Level 27, Anion Gap 10, Blood Urea Nitrogen 45H, Creatinine 7.4H, Estimat Glomerular Filtration Rate 6.8, Glucose Level 137H, Calcium Level 8.7, Random Vancomycin Level 13.4 Height (Feet): 5 Height (Inches): 5.00 Weight (Pounds): 329 Objective PHYSICAL EXAMINATION: VITAL SIGNS: Have been reviewed. GENERAL: The patient awake, alert, in mild distress. HEENT: Extraocular muscles intact. No lymphadenopathy noted. CARDIOVASCULAR: S1 and S2. No rubs or gallops. PULMONARY: Clear to auscultation bilaterally. No rales, rhonchi or wheezes. ABDOMINAL: Obese, nondistended and nontender. EXTREMITIES: A 2+ pitting edema. Malick Lizama MD Oct 27, 2018 13:09
[2018-10-27] MEDS ORDERED: Vancomycin 1250mg/D5W 250ml IVPB ONE (14:00)
[2018-10-27 16:00] VITALS: BP 148/74
[2018-10-27] MEDS ORDERED: Norco 5mg/325mg tab ORAL PRN (17:15)
[2018-10-27] MEDS ORDERED: Morphine Sulfate 2mg/ml Inj IVP PRN (17:45)
[2018-10-27] MEDS: Ampicillin/Sulbactam Sod 3 GM in NS 110 ML IVPB SCH (18:20)
[2018-10-27 20:00] VITALS: BP 134/76
[2018-10-27] MEDS: Norco 5mg/325mg tab ORAL PRN (20:31)
[2018-10-28] VITALS: BP 127/60
[2018-10-28 03:41] VITALS: BP 129/65
[2018-10-28] MEDS: NovoLOG Insulin Flexpen SUBQ SCH ×4 (06:10→20:34)
[2018-10-28 08:00] VITALS: BP 139/69
[2018-10-28 08:28] LABS: HEMATOCRIT 19.2 % (37.0-47.0); MEAN CORPUSCULAR VOLUME 79 FL (80-99); PLATELET COUNT 236 K/UL (150-450); RED BLOOD COUNT 2.43 M/UL (4.20-5.40); RED CELL DISTRIBUTION WIDTH 19.4 % (11.6-14.8)
[2018-10-28] MEDS ORDERED: Morphine Sulfate 2mg/ml Inj IVP PRN ×2 (08:30)
[2018-10-28] MEDS ORDERED: Zolpidem 5mg tab ORAL PRN (08:30)
[2018-10-28 08:31] LABS: ANION GAP 12 mmol/L (5-15); BLOOD UREA NITROGEN 58 mg/dL (7-18); CALCIUM 8.5 MG/DL (8.5-10.1); CARBON DIOXIDE 24 MMOL/L (21-32); CHLORIDE 96 MMOL/L (98-107); CREATININE 8.8 MG/DL (0.55-1.30); HEMOGLOBIN 6.1 G/DL (12.0-16.0); POTASSIUM 5.2 MMOL/L (3.5-5.1); SODIUM 132 MMOL/L (136-145)
[2018-10-28] MEDS: Allopurinol 100mg Tab ORAL SCH (08:46)
[2018-10-28] MEDS: Calcium Acetate 667mg Tab ORAL SCH (08:47)
--- NOTE | 2018-10-28 08:59 | Nephrology Progress Note ---
Assessment/Plan Assessment/Plan A/P 1) ESRD- HD TTS. 2) Hyperk+ - HD tomorrow. K+ at 5.2 - lasix x 1 3) Anemia- Gastritis. Per Heme mgmt - On EPO. Patient does not accept blood 4) HTN- stable 5) PVCs/VTach- per cardiology Subjective Date patient seen: Oct 28, 2018 Time patient seen: 08:58 ROS Limited/Unobtainable: No Allergies: Coded Allergies: NO KNOWN ALLERGIES (Unverified Allergy, Unknown, 10/15/15) Subjective Patient improved, anemic Objective Last 24 Hour Vital Signs Date Time Temp Pulse Resp B/P (MAP) Pulse Ox O2 Delivery O2 Flow Rate FiO2 10/28/18 08:47 65 159/69 10/28/18 04:00 64 10/28/18 03:41 97.2 65 18 129/65 (86) 96 10/28/18 00:00 66 10/28/18 00:00 97.9 65 19 127/60 (82) 97 10/27/18 21:00 Nasal Cannula 2.0 10/27/18 20:00 97.5 70 20 134/76 (95) 99 10/27/18 20:00 70 10/27/18 19:49 Nasal Cannula 2.0 28 10/27/18 19:48 98 Nasal Cannula 2.0 28 10/27/18 19:48 80 18 Nasal Cannula 2.0 28 10/27/18 16:00 70 10/27/18 16:00 97.5 69 20 148/74 (98) 98 10/27/18 12:00 98.0 70 18 146/72 (96) 100 10/27/18 12:00 68 10/27/18 09:00 Room Air 10/27/18 09:00 Room Air Intake and Output 10/27/18 10/28/18 19:00 07:00 Intake Total 360 ml 120 ml Balance 360 ml 120 ml Intake Oral 360 ml 120 ml # Voids 1 # Bowel Movements 1 Laboratory Tests 10/27/18 10:05: White Blood Count 9.5, Red Blood Count 2.57L, Hemoglobin 6.1*L, Hematocrit 20.4L , Mean Corpuscular Volume 80, Mean Corpuscular Hemoglobin 23.9L, Mean Corpuscular Hemoglobin Concent 30.1L, Red Cell Distribution Width 19.9H, Platelet Count 226, Mean Platelet Volume 7.3, Neutrophils (%) (Auto) , Lymphocytes (%) (Auto) , Monocytes (%) (Auto) , Eosinophils (%) (Auto) , Basophils (%) (Auto) , Differential Total Cells Counted 100, Neutrophils % ( Manual) 57, Lymphocytes % (Manual) 19L, Monocytes % (Manual) 9, Eosinophils % ( Manual) 14H, Basophils % (Manual) 0, Band Neutrophils 1, Nucleated Red Blood Cells 3, Platelet Estimate Adequate, Platelet Morphology Normal, Polychromasia 2 +, Hypochromasia 3+, Anisocytosis 3+, Sodium Level 135L, Potassium Level 5.0, Chloride Level 99, Carbon Dioxide Level 27, Anion Gap 10, Blood Urea Nitrogen 45H, Creatinine 7.4H, Estimat Glomerular Filtration Rate 6.8, Glucose Level 137H , Calcium Level 8.7, Random Vancomycin Level 13.4 10/28/18 08:00: White Blood Count 10.0, Red Blood Count 2.43L, Hemoglobin 6.1*L, Hematocrit 19.2L, Mean Corpuscular Volume 79L, Mean Corpuscular Hemoglobin 25.1L, Mean Corpuscular Hemoglobin Concent 31.7L, Red Cell Distribution Width 19.4H, Platelet Count 236, Mean Platelet Volume 6.4L, Neutrophils (%) (Auto) , Lymphocytes (%) (Auto) , Monocytes (%) (Auto) , Eosinophils (%) (Auto) , Basophils (%) (Auto) , Neutrophils % (Manual) [Pending], Lymphocytes % (Manual) [Pending], Platelet Estimate [Pending], Platelet Morphology [Pending], Sodium Level 132L, Potassium Level 5.2H, Chloride Level 96L, Carbon Dioxide Level 24, Anion Gap 12, Blood Urea Nitrogen 58H, Creatinine 8.8H, Estimat Glomerular Filtration Rate 5.6, Glucose Level 118H, Calcium Level 8.5 Height (Feet): 5 Height (Inches): 5.00 Weight (Pounds): 334 General Appearance: no apparent distress, alert EENT: normal ENT inspection Neck: normal alignment, supple Cardiovascular: normal rate, regular rhythm Respiratory/Chest: lungs clear, normal breath sounds Abdomen: non tender, soft Edema: 1+ Arm (L), 1+ Arm (R), 1+ Leg (L), 1+ Leg (R), 1+ Pedal (L), 1+ Pedal ( R), 1+ Generalized Nirmal Manley MD Oct 28, 2018 08:59
[2018-10-28] MEDS ORDERED: Lexiscan 0.4mg/5ml syringe IV PRN (10:00)
--- NOTE | 2018-10-28 10:00 | Cardiac Electrophysiology PN ---
Assessment/Plan Assessment/Plan 1. Congestive heart failure due to hypertensive heart disease and diastolic dysfunction. Echocardiogram showed EF 55%. Continue dialysis. 2. Hypertensive heart disease. On Norvasc 10 mg daily and HD. On p.r.n.clonidine. 3. Recurrent non sustained VTs up to 11 beats. No syncope. Nl EF Schedule nuclear Stress test 4. Bradycardia, keep off Beta blockers 5. Hyperlipidemia, on Lipitor. 6. Positive blood culture and Right toe blister. Podiatry and ID FU. S/P Debridement On Abx per ID 7. End-stage renal disease, on hemodialysis. 8. NIDDM DW RN Subjective Subjective No CP or SOB. No further VT last night. Occasional PVCs Objective Last 24 Hour Vital Signs Date Time Temp Pulse Resp B/P (MAP) Pulse Ox O2 Delivery O2 Flow Rate FiO2 10/28/18 08:47 65 159/69 10/28/18 04:00 64 10/28/18 03:41 97.2 65 18 129/65 (86) 96 10/28/18 00:00 66 10/28/18 00:00 97.9 65 19 127/60 (82) 97 10/27/18 21:00 Nasal Cannula 2.0 10/27/18 20:00 97.5 70 20 134/76 (95) 99 10/27/18 20:00 70 10/27/18 19:49 Nasal Cannula 2.0 28 10/27/18 19:48 98 Nasal Cannula 2.0 28 10/27/18 19:48 80 18 Nasal Cannula 2.0 28 10/27/18 16:00 70 10/27/18 16:00 97.5 69 20 148/74 (98) 98 10/27/18 12:00 98.0 70 18 146/72 (96) 100 10/27/18 12:00 68 Intake and Output 10/27/18 10/28/18 19:00 07:00 Intake Total 360 ml 120 ml Balance 360 ml 120 ml Intake Oral 360 ml 120 ml # Voids 1 # Bowel Movements 1 Laboratory Tests Test 10/27/18 10:05 10/28/18 08:00 White Blood Count 9.5 K/UL (4.8-10.8) 10.0 K/UL (4.8-10.8) Red Blood Count 2.57 M/UL (4.20-5.40) L 2.43 M/UL (4.20-5.40) L Hemoglobin 6.1 G/DL (12.0-16.0) *L 6.1 G/DL (12.0-16.0) *L Hematocrit 20.4 % (37.0-47.0) L 19.2 % (37.0-47.0) L Mean Corpuscular Volume 80 FL (80-99) 79 FL (80-99) L Mean Corpuscular Hemoglobin 23.9 PG (27.0-31.0) L 25.1 PG (27.0-31.0) L Mean Corpuscular Hemoglobin Concent 30.1 G/DL (32.0-36.0) L 31.7 G/DL (32.0-36.0) L Red Cell Distribution Width 19.9 % (11.6-14.8) H 19.4 % (11.6-14.8) H Platelet Count 226 K/UL (150-450) 236 K/UL (150-450) Mean Platelet Volume 7.3 FL (6.5-10.1) 6.4 FL (6.5-10.1) L Neutrophils (%) (Auto) % (45.0-75.0) % (45.0-75.0) Lymphocytes (%) (Auto) % (20.0-45.0) % (20.0-45.0) Monocytes (%) (Auto) % (1.0-10.0) % (1.0-10.0) Eosinophils (%) (Auto) % (0.0-3.0) % (0.0-3.0) Basophils (%) (Auto) % (0.0-2.0) % (0.0-2.0) Differential Total Cells Counted 100 100 Neutrophils % (Manual) 57 % (45-75) 66 % (45-75) Lymphocytes % (Manual) 19 % (20-45) L 11 % (20-45) L Monocytes % (Manual) 9 % (1-10) 7 % (1-10) Eosinophils % (Manual) 14 % (0-3) H 13 % (0-3) H Basophils % (Manual) 0 % (0-2) 3 % (0-2) H Band Neutrophils 1 % (0-8) 0 % (0-8) Nucleated Red Blood Cells 3 /100 WBC 2 /100 WBC Platelet Estimate Adequate Adequate Platelet Morphology Normal Normal Polychromasia 2+ 2+ Hypochromasia 3+ 4+ Anisocytosis 3+ 2+ Sodium Level 135 MMOL/L (136-145) L 132 MMOL/L (136-145) L Potassium Level 5.0 MMOL/L (3.5-5.1) 5.2 MMOL/L (3.5-5.1) H Chloride Level 99 MMOL/L (98-107) 96 MMOL/L (98-107) L Carbon Dioxide Level 27 MMOL/L (21-32) 24 MMOL/L (21-32) Anion Gap 10 mmol/L (5-15) 12 mmol/L (5-15) Blood Urea Nitrogen 45 mg/dL (7-18) H 58 mg/dL (7-18) H Creatinine 7.4 MG/DL (0.55-1.30) H 8.8 MG/DL (0.55-1.30) H Estimat Glomerular Filtration Rate 6.8 mL/min (>60) 5.6 mL/min (>60) Glucose Level 137 MG/DL (74-106) H 118 MG/DL (74-106) H Calcium Level 8.7 MG/DL (8.5-10.1) 8.5 MG/DL (8.5-10.1) Random Vancomycin Level 13.4 ug/mL Microcytosis 1+ Microbiology Date/Time Source Procedure Growth Status 10/25/18 19:00 Blood Blood Culture - Preliminary NO GROWTH AFTER 48 HOURS Resulted Objective HEAD AND NECK: No jugular venous distention. LUNGS: Decreased breath sounds. CARDIOVASCULAR: Regular S1 and S2 with no gallop. ABDOMEN: Morbidly obese. EXTREMITIES: 1+ pitting edema.Right big toe s/p I&D Shalom Vinson MD Oct 28, 2018 10:00
--- NOTE | 2018-10-28 10:39 | GI Progress Note ---
Assessment/Plan Problems: (1) End stage renal disease on dialysis ICD Codes: N18.6 - End stage renal failure on dialysis; Z99.2 - Dependence on renal dialysis SNOMED: 034718816 (2) Uncontrolled diabetes mellitus ICD Codes: E11.9 - Type 2 diabetes mellitus without complications SNOMED: 086044218 (3) Morbid obesity ICD Codes: E66.01 - Morbid (severe) obesity due to excess calories SNOMED: 685278410, 28578044452005 (4) Anemia ICD Codes: D64.9 - Anemia, unspecified SNOMED: 165312913 Qualifiers: Qualified Codes: D64.9 - Anemia, unspecified (5) Iron deficiency ICD Codes: E61.1 - Iron deficiency SNOMED: 50609994 Status: stable Status Narrative Discussed with Dr. Garcia. Assessment/Plan Hx of recent colonoscopy at [facility] which was unremarkable OB stool negative. s/p EGD >> gastritis, no active source of bleeding advance diet monitor H&H bowel regime ppi fu labs dc planning The patient was seen and examined at bedside and all new and available data was reviewed in the patients chart. I agree with the above findings, impression and plan. (Patient seen earlier today. Signature stamp does not reflect patient encounter time.). - Jamison Garcia MD Subjective Gastrointestinal/Abdominal: Reports: no symptoms Objective Last 24 Hour Vital Signs Date Time Temp Pulse Resp B/P (MAP) Pulse Ox O2 Delivery O2 Flow Rate FiO2 10/28/18 08:47 65 159/69 10/28/18 08:00 61 10/28/18 08:00 97.9 61 18 139/69 (92) 96 10/28/18 04:00 64 10/28/18 03:41 97.2 65 18 129/65 (86) 96 10/28/18 00:00 66 10/28/18 00:00 97.9 65 19 127/60 (82) 97 10/27/18 21:00 Nasal Cannula 2.0 10/27/18 20:00 97.5 70 20 134/76 (95) 99 10/27/18 20:00 70 10/27/18 19:49 Nasal Cannula 2.0 28 10/27/18 19:48 98 Nasal Cannula 2.0 28 10/27/18 19:48 80 18 Nasal Cannula 2.0 28 10/27/18 16:00 70 10/27/18 16:00 97.5 69 20 148/74 (98) 98 10/27/18 12:00 98.0 70 18 146/72 (96) 100 10/27/18 12:00 68 Intake and Output 10/27/18 10/28/18 19:00 07:00 Intake Total 360 ml 120 ml Balance 360 ml 120 ml Intake Oral 360 ml 120 ml # Voids 1 # Bowel Movements 1 Laboratory Tests Test 10/28/18 08:00 White Blood Count 10.0 K/UL (4.8-10.8) Red Blood Count 2.43 M/UL (4.20-5.40) L Hemoglobin 6.1 G/DL (12.0-16.0) *L Hematocrit 19.2 % (37.0-47.0) L Mean Corpuscular Volume 79 FL (80-99) L Mean Corpuscular Hemoglobin 25.1 PG (27.0-31.0) L Mean Corpuscular Hemoglobin Concent 31.7 G/DL (32.0-36.0) L Red Cell Distribution Width 19.4 % (11.6-14.8) H Platelet Count 236 K/UL (150-450) Mean Platelet Volume 6.4 FL (6.5-10.1) L Neutrophils (%) (Auto) % (45.0-75.0) Lymphocytes (%) (Auto) % (20.0-45.0) Monocytes (%) (Auto) % (1.0-10.0) Eosinophils (%) (Auto) % (0.0-3.0) Basophils (%) (Auto) % (0.0-2.0) Differential Total Cells Counted 100 Neutrophils % (Manual) 66 % (45-75) Lymphocytes % (Manual) 11 % (20-45) L Monocytes % (Manual) 7 % (1-10) Eosinophils % (Manual) 13 % (0-3) H Basophils % (Manual) 3 % (0-2) H Band Neutrophils 0 % (0-8) Nucleated Red Blood Cells 2 /100 WBC Platelet Estimate Adequate Platelet Morphology Normal Polychromasia 2+ Hypochromasia 4+ Anisocytosis 2+ Microcytosis 1+ Sodium Level 132 MMOL/L (136-145) L Potassium Level 5.2 MMOL/L (3.5-5.1) H Chloride Level 96 MMOL/L (98-107) L Carbon Dioxide Level 24 MMOL/L (21-32) Anion Gap 12 mmol/L (5-15) Blood Urea Nitrogen 58 mg/dL (7-18) H Creatinine 8.8 MG/DL (0.55-1.30) H Estimat Glomerular Filtration Rate 5.6 mL/min (>60) Glucose Level 118 MG/DL (74-106) H Calcium Level 8.5 MG/DL (8.5-10.1) Height (Feet): 5 Height (Inches): 5.00 Weight (Pounds): 334 General Appearance: WD/WN, no apparent distress, alert Cardiovascular: normal rate Respiratory/Chest: normal breath sounds, no respiratory distress Abdominal Exam: normal bowel sounds, non tender, soft Extremities: normal range of motion, non-tender Jaime Martin NP Oct 28, 2018 10:39
--- NOTE | 2018-10-28 10:41 | General Progress Note ---
Assessment/Plan Status: stable Assessment/Plan # Anemia of chronic disease due to underlying chronic medical issues, multifactorial. 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 --> Hgb remains low at 6.5 --> Prior anemia w/u has been reviewed. Ferritin >2000 --> No evidence of hemolysis is noted, peripheral smear has been reviewed. --> Hgb goal >7. Transfuse prn. --> EGD 10/24 --> off heparin sq at this time, is on scds --> bone marrow biopsy has been ordered to evaluate and r/o MDS, as continues to have anemia # Anemia of chronic kidney disease. 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 --> on epogen, will continue --> would refrain from iv iron, is overloaded # End-stage renal disease on hemodialysis. Nephro is following, appreciate recs. --> The patient is on hemodialysis due to shortness of breath. # Mild hyperkalemia, potassium 6.2 on admission --> Currently remains elevated at 5.2 --> The patient has been treated medically in the emergency room. --> The patient was dialyzed for 3-1/2 hours on a 2 potassium bath. # Hypertension. Cardiology is following, appreciate recs. --> stress test pending --> Adjust medications as appropriate. # Diabetes mellitus per primary care physician. --> Cont on insulin --> Cont to monitor BS levels : GREATLY APPRECIATE CONSULTATION. Subjective Date patient seen: Oct 28, 2018 Hematologic/Lymphatic: Reports: anemia Allergies: Coded Allergies: NO KNOWN ALLERGIES (Unverified Allergy, Unknown, 10/15/15) All Systems: reviewed and negative except above Subjective Pt awake and alert. VS stable. O2 NC. Hgb remains low. Objective Last 24 Hour Vital Signs Date Time Temp Pulse Resp B/P (MAP) Pulse Ox O2 Delivery O2 Flow Rate FiO2 10/28/18 08:47 65 159/69 10/28/18 08:00 97.9 61 18 139/69 (92) 96 10/28/18 04:00 64 10/28/18 03:41 97.2 65 18 129/65 (86) 96 10/28/18 00:00 66 10/28/18 00:00 97.9 65 19 127/60 (82) 97 12/2/18 21:00 Nasal Cannula 2.0 10/27/18 20:00 97.5 70 20 134/76 (95) 99 10/27/18 20:00 70 10/27/18 19:49 Nasal Cannula 2.0 28 10/27/18 19:48 98 Nasal Cannula 2.0 28 10/27/18 19:48 80 18 Nasal Cannula 2.0 28 10/27/18 16:00 70 10/27/18 16:00 97.5 69 20 148/74 (98) 98 10/27/18 12:00 98.0 70 18 146/72 (96) 100 10/27/18 12:00 68 Intake and Output 10/27/18 10/28/18 19:00 07:00 Intake Total 360 ml 120 ml Balance 360 ml 120 ml Intake Oral 360 ml 120 ml # Voids 1 # Bowel Movements 1 Laboratory Tests 10/28/18 08:00: White Blood Count 10.0, Red Blood Count 2.43L, Hemoglobin 6.1*L, Hematocrit 19.2L, Mean Corpuscular Volume 79L, Mean Corpuscular Hemoglobin 25.1L, Mean Corpuscular Hemoglobin Concent 31.7L, Red Cell Distribution Width 19.4H, Platelet Count 236, Mean Platelet Volume 6.4L, Neutrophils (%) (Auto) , Lymphocytes (%) (Auto) , Monocytes (%) (Auto) , Eosinophils (%) (Auto) , Basophils (%) (Auto) , Differential Total Cells Counted 100, Neutrophils % ( Manual) 66, Lymphocytes % (Manual) 11L, Monocytes % (Manual) 7, Eosinophils % ( Manual) 13H, Basophils % (Manual) 3H, Band Neutrophils 0, Nucleated Red Blood Cells 2, Platelet Estimate Adequate, Platelet Morphology Normal, Polychromasia 2 +, Hypochromasia 4+, Anisocytosis 2+, Microcytosis 1+, Sodium Level 132L, Potassium Level 5.2H, Chloride Level 96L, Carbon Dioxide Level 24, Anion Gap 12 , Blood Urea Nitrogen 58H, Creatinine 8.8H, Estimat Glomerular Filtration Rate 5.6, Glucose Level 118H, Calcium Level 8.5 Height (Feet): 5 Height (Inches): 5.00 Weight (Pounds): 334 Objective PHYSICAL EXAMINATION: VITAL SIGNS: Have been reviewed. GENERAL: The patient awake, alert, in mild distress. HEENT: Extraocular muscles intact. No lymphadenopathy noted. CARDIOVASCULAR: S1 and S2. No rubs or gallops. PULMONARY: Clear to auscultation bilaterally. No rales, rhonchi or wheezes. ABDOMINAL: Obese, nondistended and nontender. EXTREMITIES: A 2+ pitting edema. Malick Liazma MD Oct 28, 2018 10:41
--- NOTE | 2018-10-28 11:45 | Diagnostic Imaging Report ---
Indication: Shortness of breath Technique: One view of the chest Comparison: And 14/06/2018 Findings: There is diffuse bilateral interstitial and airspace edema. The heart is enlarged. There is a left chest tunneled dialysis catheter again demonstrated. Allowing for exposure differences, probably no significant interim change Impression: Cardiomegaly and interstitial and airspace edema, probably unchanged since 10/22/2018
[2018-10-28 12:00] VITALS: BP 145/66
--- NOTE | 2018-10-28 12:31 | Pulmonology Progress Note ---
Assessment/Plan Problems: (1) Acute respiratory failure (2) End stage renal disease on dialysis (3) Bacteremia (4) Morbid obesity (5) Hypertension (6) Uncontrolled diabetes mellitus (7) UTI (urinary tract infection) Assessment/Plan still has chest pain on Vancomycin all reviewed respiratory treatment titrate fio2 to sat of 92% check sputum check urine cultures iv abx as per ID sliding scale insulin coverage. Subjective ROS Limited/Unobtainable: No Constitutional: Reports: no symptoms HEENT: Repors: no symptoms Cardiovascular: Reports: no symptoms Allergies: Coded Allergies: NO KNOWN ALLERGIES (Unverified Allergy, Unknown, 10/15/15) Objective Last 24 Hour Vital Signs Date Time Temp Pulse Resp B/P (MAP) Pulse Ox O2 Delivery O2 Flow Rate FiO2 10/28/18 09:00 Nasal Cannula 2.0 10/28/18 08:47 65 159/69 10/28/18 08:00 61 10/28/18 08:00 97.9 61 18 139/69 (92) 96 10/28/18 04:00 64 10/28/18 03:41 97.2 65 18 129/65 (86) 96 10/28/18 00:00 66 10/28/18 00:00 97.9 65 19 127/60 (82) 97 10/27/18 21:00 Nasal Cannula 2.0 10/27/18 20:00 97.5 70 20 134/76 (95) 99 10/27/18 20:00 70 10/27/18 19:49 Nasal Cannula 2.0 28 10/27/18 19:48 98 Nasal Cannula 2.0 28 10/27/18 19:48 80 18 Nasal Cannula 2.0 28 10/27/18 16:00 70 10/27/18 16:00 97.5 69 20 148/74 (98) 98 Intake and Output 10/27/18 10/28/18 19:00 07:00 Intake Total 360 ml 120 ml Balance 360 ml 120 ml Intake Oral 360 ml 120 ml # Voids 1 # Bowel Movements 1 General Appearance: WD/WN HEENT: normocephalic, atraumatic Respiratory/Chest: chest wall non-tender, lungs clear Breasts: no masses Cardiovascular: normal rate, regularly irregular Abdomen: normal bowel sounds, no organomegaly Microbiology Date/Time Source Procedure Growth Status 10/25/18 19:00 Blood Blood Culture - Preliminary NO GROWTH AFTER 48 HOURS Resulted Laboratory Tests 10/28/18 08:00: White Blood Count 10.0, Red Blood Count 2.43L, Hemoglobin 6.1*L, Hematocrit 19.2L, Mean Corpuscular Volume 79L, Mean Corpuscular Hemoglobin 25.1L, Mean Corpuscular Hemoglobin Concent 31.7L, Red Cell Distribution Width 19.4H, Platelet Count 236, Mean Platelet Volume 6.4L, Neutrophils (%) (Auto) , Lymphocytes (%) (Auto) , Monocytes (%) (Auto) , Eosinophils (%) (Auto) , Basophils (%) (Auto) , Differential Total Cells Counted 100, Neutrophils % ( Manual) 66, Lymphocytes % (Manual) 11L, Monocytes % (Manual) 7, Eosinophils % ( Manual) 13H, Basophils % (Manual) 3H, Band Neutrophils 0, Nucleated Red Blood Cells 2, Platelet Estimate Adequate, Platelet Morphology Normal, Polychromasia 2 +, Hypochromasia 4+, Anisocytosis 2+, Microcytosis 1+, Sodium Level 132L, Potassium Level 5.2H, Chloride Level 96L, Carbon Dioxide Level 24, Anion Gap 12 , Blood Urea Nitrogen 58H, Creatinine 8.8H, Estimat Glomerular Filtration Rate 5.6, Glucose Level 118H, Calcium Level 8.5 Current Medications Medications (Trade) Dose Ordered Sig/Josi Route PRN Reason Start Time Stop Time Status Last Admin Dose Admin Acetaminophen (Tylenol) 650 mg Q4H PRN ORAL fever 10/22/18 13:28 11/21/18 13:27 Acetaminophen/ Hydrocodone Bitart ([place] 5/325) 1 tab Q6H PRN ORAL For Pain 10/27/18 18:00 11/03/18 17:59 10/27/18 20:31 Albuterol/ Ipratropium (Albuterol/ Ipratropium) 3 ml Q6H PRN HHN dyspnea 10/26/18 12:33 10/31/18 12:32 Allopurinol (Zyloprim) 100 mg DAILY ORAL 10/23/18 09:00 11/22/18 08:59 10/28/18 08:46 Amlodipine Besylate (Norvasc) 10 mg DAILY ORAL 10/24/18 09:00 11/23/18 08:59 10/28/18 08:47 Ampicillin Sodium/ Sulbactam Sodium 3 gm/Sodium Chloride 110 ml @ 220 mls/hr Q24H IVPB 10/24/18 18:00 10/31/18 17:59 10/27/18 18:20 Atorvastatin Calcium (Lipitor) 20 mg BEDTIME ORAL 10/22/18 21:00 11/21/18 20:59 10/27/18 20:31 Calcium Acetate (Phoslo) 667 mg DAILY ORAL 10/23/18 09:00 11/22/18 08:59 10/28/18 08:47 Clonidine HCl (Catapres Tab) 0.1 mg Q4H PRN ORAL For High Blood Pressure 10/22/18 13:30 11/21/18 13:29 10/23/18 08:39 Dextrose (Dextrose 50%) 25 ml Q30M PRN IV Hypoglycemia 10/22/18 13:45 11/21/18 13:30 Dextrose (Dextrose 50%) 50 ml Q30M PRN IV hypoglycemia 10/22/18 13:45 11/21/18 13:44 10/23/18 11:41 Diphenhydramine HCl (Benadryl) 25 mg Q8H PRN ORAL Itching 10/25/18 06:45 11/24/18 06:44 10/28/18 02:31 Epoetin Jose De Jesus (Procrit (for ESRD on dialysis)) 10,000 units SUN-SUN-SUN SUBQ 10/23/18 21:00 11/22/18 20:59 10/25/18 21:24 Gabapentin (Neurontin) 400 mg BID ORAL 10/24/18 18:00 11/23/18 17:59 10/28/18 08:46 Insulin Aspart (NovoLOG) BEFORE MEALS AND HS SUBQ 10/22/18 16:30 11/21/18 16:29 10/28/18 11:56 Morphine Sulfate (Morphine Sulfate) 1 mg Q4H PRN IVP For Pain 10/28/18 08:30 11/04/18 08:29 Ondansetron HCl (Zofran) 4 mg Q6H PRN IVP Nausea & Vomiting 10/22/18 13:30 11/21/18 13:29 10/26/18 05:37 Polyethylene Glycol (Miralax) 17 gm DAILY PRN ORAL Constipation 10/27/18 12:39 11/26/18 12:38 10/27/18 18:19 Regadenoson (Lexiscan) 0.4 mg ONCE PRN IV stress test 10/28/18 10:00 10/30/18 09:59 Sevelamer Carbonate (Renvela) 800 mg THREE TIMES A DAY ORAL 10/22/18 18:00 11/21/18 17:59 10/28/18 12:27 Vancomycin HCl (Vanco rx to dose) 1 ea DAILY PRN MISC Per rx protocol 10/24/18 11:15 11/23/18 11:14 Zolpidem Tartrate (Ambien) 5 mg HSPRN PRN ORAL Insomnia 10/28/18 08:30 11/04/18 08:29 Meghana Murillo MD Oct 28, 2018 12:31
--- NOTE | 2018-10-28 13:09 | Diagnostic Imaging Report ---
APPROVED REPORT CPT Code: 29024 Present Symptoms Comments: BILATERAL LEGS PAIN. BILATERAL: Imaging reveals a patent deep venous system bilaterally. There is no evidence of thrombus within the femoral, popliteal or tibial segments. The greater saphenous veins are also within normal limits. Doppler indicates normal spontaneous flow within these segments.
--- NOTE | 2018-10-28 13:14 | Infectious Diseases Prog Note ---
Assessment/Plan Assessment/Plan Abx: Ceftriaxone x1 10/22 Assessment: R foot blisters/cellulitis -10/25 s/p bedsdie I+D; wound cx p Gram positive bacteremia- real vs contaminant- r/o line infection- suspect these are all contaminants -10/25 BCx NTD (peripheral) -10/22 Bcx 1/4 CONS, 1/4 diphteroids; 10/24 2/4 S, mitis oralis (source? periheral or cental line) Afebrile NO Leukocytosis Pyuria- no UTI symptoms -u/a wbc tntc, nitneg, leuk +3; ucx NTD Severe anemia Hyperkalemia, SP SOB 2ry to CHF exacerbation -CXR: Cardiomegaly with pulmonary venous congestion -influenza sc neg ESRD on HD DM2 b/l eye blindness CHF, bradycardia 2ry hyperparathyroidism CAD s/p stent AOCD s/p AVG w recent rupture HTN morbid obesity Plan: -Continue empiric IV Vancomycin # 5/ for GPC bacteremia and cellulitis -Continue Unasyn #5/7 -10/27 SP Clindamycin #3 -f/u Repeat 2 sets of Bcx -Bcx from HD line -for bone marrow biopsy per heme onc -f/u cx -Monitor CBC/CMP, temperatures -aspiration precautions -wound care -Podiatry f/u Thank you for this consultation. Will continue to follow along with you. Discussed with RN. Subjective Allergies: Coded Allergies: NO KNOWN ALLERGIES (Unverified Allergy, Unknown, 10/15/15) Subjective afebrile no leukocytosis repaet Bcx NTD at 2l NC for bone marrow biopsy given onging anemia Objective Vital Signs Last 24 Hour Vital Signs Date Time Temp Pulse Resp B/P (MAP) Pulse Ox O2 Delivery O2 Flow Rate FiO2 10/28/18 09:00 Nasal Cannula 2.0 10/28/18 08:47 65 159/69 10/28/18 08:00 61 10/28/18 08:00 97.9 61 18 139/69 (92) 96 10/28/18 04:00 64 10/28/18 03:41 97.2 65 18 129/65 (86) 96 10/28/18 00:00 66 10/28/18 00:00 97.9 65 19 127/60 (82) 97 10/27/18 21:00 Nasal Cannula 2.0 10/27/18 20:00 97.5 70 20 134/76 (95) 99 10/27/18 20:00 70 10/27/18 19:49 Nasal Cannula 2.0 28 10/27/18 19:48 98 Nasal Cannula 2.0 28 10/27/18 19:48 80 18 Nasal Cannula 2.0 28 10/27/18 16:00 70 10/27/18 16:00 97.5 69 20 148/74 (98) 98 Height (Feet): 5 Height (Inches): 5.00 Weight (Pounds): 334 Objective GENERAL: The patient awake, alert, in mild distress. HEENT: Extraocular muscles intact. No lymphadenopathy noted. CARDIOVASCULAR: S1 and S2. No rubs or gallops. PULMONARY: Clear to auscultation bilaterally. No rales, rhonchi or wheezes. ABDOMINAL: Obese, nondistended and nontender. EXTREMITIES: A 2+ pitting edema. R foot blisters with surrounding cellulitis Microbiology Date/Time Source Procedure Growth Status 10/25/18 19:00 Blood Blood Culture - Preliminary NO GROWTH AFTER 48 HOURS Resulted Laboratory Tests Test 10/28/18 08:00 White Blood Count 10.0 K/UL (4.8-10.8) Red Blood Count 2.43 M/UL (4.20-5.40) L Hemoglobin 6.1 G/DL (12.0-16.0) *L Hematocrit 19.2 % (37.0-47.0) L Mean Corpuscular Volume 79 FL (80-99) L Mean Corpuscular Hemoglobin 25.1 PG (27.0-31.0) L Mean Corpuscular Hemoglobin Concent 31.7 G/DL (32.0-36.0) L Red Cell Distribution Width 19.4 % (11.6-14.8) H Platelet Count 236 K/UL (150-450) Mean Platelet Volume 6.4 FL (6.5-10.1) L Neutrophils (%) (Auto) % (45.0-75.0) Lymphocytes (%) (Auto) % (20.0-45.0) Monocytes (%) (Auto) % (1.0-10.0) Eosinophils (%) (Auto) % (0.0-3.0) Basophils (%) (Auto) % (0.0-2.0) Differential Total Cells Counted 100 Neutrophils % (Manual) 66 % (45-75) Lymphocytes % (Manual) 11 % (20-45) L Monocytes % (Manual) 7 % (1-10) Eosinophils % (Manual) 13 % (0-3) H Basophils % (Manual) 3 % (0-2) H Band Neutrophils 0 % (0-8) Nucleated Red Blood Cells 2 /100 WBC Platelet Estimate Adequate Platelet Morphology Normal Polychromasia 2+ Hypochromasia 4+ Anisocytosis 2+ Microcytosis 1+ Sodium Level 132 MMOL/L (136-145) L Potassium Level 5.2 MMOL/L (3.5-5.1) H Chloride Level 96 MMOL/L (98-107) L Carbon Dioxide Level 24 MMOL/L (21-32) Anion Gap 12 mmol/L (5-15) Blood Urea Nitrogen 58 mg/dL (7-18) H Creatinine 8.8 MG/DL (0.55-1.30) H Estimat Glomerular Filtration Rate 5.6 mL/min (>60) Glucose Level 118 MG/DL (74-106) H Calcium Level 8.5 MG/DL (8.5-10.1) Current Medications Medications (Trade) Dose Ordered Sig/Josi Route PRN Reason Start Time Stop Time Status Last Admin Dose Admin Acetaminophen (Tylenol) 650 mg Q4H PRN ORAL fever 10/22/18 13:28 11/21/18 13:27 Acetaminophen/ Hydrocodone Bitart ([place] 5/325) 1 tab Q6H PRN ORAL For Pain 10/27/18 18:00 11/03/18 17:59 10/27/18 20:31 Albuterol/ Ipratropium (Albuterol/ Ipratropium) 3 ml Q6H PRN HHN dyspnea 10/26/18 12:33 10/31/18 12:32 Allopurinol (Zyloprim) 100 mg DAILY ORAL 10/23/18 09:00 11/22/18 08:59 10/28/18 08:46 Amlodipine Besylate (Norvasc) 10 mg DAILY ORAL 10/24/18 09:00 11/23/18 08:59 10/28/18 08:47 Ampicillin Sodium/ Sulbactam Sodium 3 gm/Sodium Chloride 110 ml @ 220 mls/hr Q24H IVPB 10/24/18 18:00 10/31/18 17:59 10/27/18 18:20 Atorvastatin Calcium (Lipitor) 20 mg BEDTIME ORAL 10/22/18 21:00 11/21/18 20:59 10/27/18 20:31 Calcium Acetate (Phoslo) 667 mg DAILY ORAL 10/23/18 09:00 11/22/18 08:59 10/28/18 08:47 Clonidine HCl (Catapres Tab) 0.1 mg Q4H PRN ORAL For High Blood Pressure 10/22/18 13:30 11/21/18 13:29 10/23/18 08:39 Dextrose (Dextrose 50%) 25 ml Q30M PRN IV Hypoglycemia 10/22/18 13:45 11/21/18 13:30 Dextrose (Dextrose 50%) 50 ml Q30M PRN IV hypoglycemia 10/22/18 13:45 11/21/18 13:44 10/23/18 11:41 Diphenhydramine HCl (Benadryl) 25 mg Q8H PRN ORAL Itching 10/25/18 06:45 11/24/18 06:44 10/28/18 02:31 Epoetin Jose De Jesus (Procrit (for ESRD on dialysis)) 10,000 units SUN-SUN-SUN SUBQ 10/23/18 21:00 11/22/18 20:59 10/25/18 21:24 Gabapentin (Neurontin) 400 mg BID ORAL 10/24/18 18:00 11/23/18 17:59 10/28/18 08:46 Insulin Aspart (NovoLOG) BEFORE MEALS AND HS SUBQ 10/22/18 16:30 11/21/18 16:29 10/28/18 11:56 Morphine Sulfate (Morphine Sulfate) 1 mg Q4H PRN IVP For Pain 10/28/18 08:30 11/04/18 08:29 Ondansetron HCl (Zofran) 4 mg Q6H PRN IVP Nausea & Vomiting 10/22/18 13:30 11/21/18 13:29 10/26/18 05:37 Polyethylene Glycol (Miralax) 17 gm DAILY PRN ORAL Constipation 10/27/18 12:39 11/26/18 12:38 10/27/18 18:19 Regadenoson (Lexiscan) 0.4 mg ONCE PRN IV stress test 10/28/18 10:00 10/30/18 09:59 Sevelamer Carbonate (Renvela) 800 mg THREE TIMES A DAY ORAL 10/22/18 18:00 11/21/18 17:59 10/28/18 12:27 Vancomycin HCl (Vanco rx to dose) 1 ea DAILY PRN MISC Per rx protocol 10/24/18 11:15 11/23/18 11:14 Zolpidem Tartrate (Ambien) 5 mg HSPRN PRN ORAL Insomnia 10/28/18 08:30 11/04/18 08:29 Susi Vanegas M.D. Oct 28, 2018 13:14
--- NOTE | 2018-10-28 13:34 | General Progress Note ---
Assessment/Plan Problem List: (1) Congestive heart failure (CHF) ICD Codes: I50.9 - Heart failure, unspecified SNOMED: 85623364 (2) Anemia ICD Codes: D64.9 - Anemia, unspecified SNOMED: 249472932 Qualifiers: Qualified Codes: D64.9 - Anemia, unspecified (3) Hypertension ICD Codes: I10 - Essential (primary) hypertension SNOMED: 00204210 (4) Morbid obesity ICD Codes: E66.01 - Morbid (severe) obesity due to excess calories SNOMED: 696340050, 29619135207978 (5) End stage renal disease on dialysis ICD Codes: N18.6 - End stage renal failure on dialysis; Z99.2 - Dependence on renal dialysis SNOMED: 181972963 (6) Open wound of right great toe ICD Codes: S91.101A - Unspecified open wound of right great toe without damage to nail, initial encounter SNOMED: 400534460 Status: unchanged Assessment/Plan wound care ot pt diet dialysis heme f/u podiatry eval cbc bmp am snf eval Subjective Constitutional: Reports: weakness Allergies: Coded Allergies: NO KNOWN ALLERGIES (Unverified Allergy, Unknown, 10/15/15) All Systems: reviewed and negative except above Subjective o2nc sl gen pain Objective Last 24 Hour Vital Signs Date Time Temp Pulse Resp B/P (MAP) Pulse Ox O2 Delivery O2 Flow Rate FiO2 10/28/18 12:00 98.1 61 18 145/66 (92) 100 10/28/18 12:00 61 10/28/18 09:00 Nasal Cannula 2.0 10/28/18 08:47 65 159/69 10/28/18 08:00 61 10/28/18 08:00 97.9 61 18 139/69 (92) 96 10/28/18 04:00 64 10/28/18 03:41 97.2 65 18 129/65 (86) 96 10/28/18 00:00 66 10/28/18 00:00 97.9 65 19 127/60 (82) 97 10/27/18 21:00 Nasal Cannula 2.0 10/27/18 20:00 97.5 70 20 134/76 (95) 99 10/27/18 20:00 70 10/27/18 19:49 Nasal Cannula 2.0 28 10/27/18 19:48 98 Nasal Cannula 2.0 28 10/27/18 19:48 80 18 Nasal Cannula 2.0 28 10/27/18 16:00 70 10/27/18 16:00 97.5 69 20 148/74 (98) 98 Intake and Output 10/27/18 10/28/18 19:00 07:00 Intake Total 360 ml 120 ml Balance 360 ml 120 ml Intake Oral 360 ml 120 ml # Voids 1 # Bowel Movements 1 Laboratory Tests 10/28/18 08:00: White Blood Count 10.0, Red Blood Count 2.43L, Hemoglobin 6.1*L, Hematocrit 19.2L, Mean Corpuscular Volume 79L, Mean Corpuscular Hemoglobin 25.1L, Mean Corpuscular Hemoglobin Concent 31.7L, Red Cell Distribution Width 19.4H, Platelet Count 236, Mean Platelet Volume 6.4L, Neutrophils (%) (Auto) , Lymphocytes (%) (Auto) , Monocytes (%) (Auto) , Eosinophils (%) (Auto) , Basophils (%) (Auto) , Differential Total Cells Counted 100, Neutrophils % ( Manual) 66, Lymphocytes % (Manual) 11L, Monocytes % (Manual) 7, Eosinophils % ( Manual) 13H, Basophils % (Manual) 3H, Band Neutrophils 0, Nucleated Red Blood Cells 2, Platelet Estimate Adequate, Platelet Morphology Normal, Polychromasia 2 +, Hypochromasia 4+, Anisocytosis 2+, Microcytosis 1+, Sodium Level 132L, Potassium Level 5.2H, Chloride Level 96L, Carbon Dioxide Level 24, Anion Gap 12 , Blood Urea Nitrogen 58H, Creatinine 8.8H, Estimat Glomerular Filtration Rate 5.6, Glucose Level 118H, Calcium Level 8.5 Height (Feet): 5 Height (Inches): 5.00 Weight (Pounds): 334 General Appearance: lethargic EENT: normal ENT inspection Neck: normal alignment Cardiovascular: normal peripheral pulses, normal rate, regular rhythm Respiratory/Chest: chest wall non-tender, decreased breath sounds Abdomen: normal bowel sounds, non tender, soft Extremities: normal inspection Edema: no edema noted Arm (L), no edema noted Arm (R), no edema noted Leg (L), no edema noted Leg (R), no edema noted Pedal (L), no edema noted Pedal (R), no edema noted Generalized Skin: normal pigmentation, warm/dry Objective right toe dressing c and d Roderick Henning DO Oct 28, 2018 13:34
--- NOTE | 2018-10-28 13:40 | Cardiology Report ---
APPROVED REPORT EXAM: Two-dimensional and M-mode echocardiogram with Doppler and color Doppler. INDICATION VEGITATION M-Mode DIMENSIONS IVSd0.9 (0.7-1.1cm)Left Atrium (MM)4.7 (1.6-4.0cm) LVDd6.8 (3.5-5.6cm)Aortic Root3.7 (2.0-3.7cm) PWd1.3 (0.7-1.1cm)Aortic Cusp Exc.2.5 (1.5-2.0cm) IVSs2.0 cm LVDs4.9 (2.5-4.0cm) PWs2.0 cm Technically difficult study due to pt's body habitus . Study quality precludes accurate assessment of regional wall motion. Normal left ventricular chamber size, systolic function and wall motion to extent visualized. Left ventricular ejection fraction estimated to be 55 %. There is right ventricular volume and pressure overload. Mild left ventricular hypertrophy. No evidence of pericardial effusion. Mild left atrial enlargment . Moderate right atrial and ventricular enlargment . Focal aortic valve sclerosis with adequate cusp excursion. Thickened mitral valve leaflets with normal excursion. Mitral annulus and aortic root calcification. Pulmonic valve not well visualized. Normal tricuspid valve structure. IVC dilated at size 3.8 cm without collapsing with respiration suggestive of increased RA pressure. No discrete vegetations seen, however SBE may not be excluded by transthoracic 2-D echo. Consider CLAY if clinically indicated. A color flow and spectral Doppler study was performed and revealed: No aortic regurgitation . Mild dulce regurgitation. Severe tricuspid regurgitation. Tricuspid systolic velocities suggests peak right ventricular systolic pressure of 45mHg. Consistent with moderate pulmonory hypertension.
[2018-10-28 16:00] VITALS: BP 150/64
[2018-10-28] MEDS: Ampicillin/Sulbactam Sod 3 GM in NS 110 ML IVPB SCH (17:24)
[2018-10-28 20:00] VITALS: BP 161/67
[2018-10-28] MEDS: Atorvastatin 20mg tab ORAL SCH (20:32)
[2018-10-28] MEDS: Epogen (for ESRD on dialysis) SUBQ SCH (20:33)
[2018-10-28] MEDS: Norco 5mg/325mg tab ORAL PRN (20:33)
[2018-10-29] VITALS: BP 130/78
[2018-10-29 04:00] VITALS: BP 125/66
[2018-10-29] MEDS: NovoLOG Insulin Flexpen SUBQ SCH ×4 (06:05→21:00)
--- NOTE | 2018-10-29 06:38 | General Progress Note ---
Assessment/Plan Assessment/Plan # Anemia of chronic disease due to underlying chronic medical issues, multifactorial. 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 Hx of esrd on hd. --> Hgb remains low at 6.5 --> Prior anemia w/u has been reviewed. Ferritin >1999 --> No evidence of hemolysis is noted, peripheral smear has been reviewed. --> Hgb goal >7. Transfuse prn. --> EGD 10/24 --> off heparin sq at this time, is on scds --> bone marrow biopsy that can be done as an outpatient # Anemia of chronic kidney disease. 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 --> on epogen, will continue --> would refrain from iv iron, since is overloaded # End-stage renal disease on hemodialysis. Nephro is following, appreciate recs. --> The patient is on hemodialysis due to shortness of breath. # Mild hyperkalemia, potassium 6.2 on admission --> Currently remains elevated at 5.2 --> The patient has been treated medically in the emergency room. --> The patient was dialyzed for 3-1/2 hours on a 2 potassium bath. # Hypertension. Cardiology is following, appreciate recs. --> stress test pending as per cards --> Adjust medications as appropriate. # Diabetes mellitus per primary care physician. --> Cont on insulin --> Cont to monitor BS levels : GREATLY APPRECIATE CONSULTATION. Subjective Constitutional: Denies: no symptoms, chills, diaphoresis, fever, malaise, weakness, other HEENT: Denies: no symptoms, eye pain, blurred vision, tearing, double vision, ear pain, ear discharge, nose pain, nose congestion, throat pain, throat swelling, mouth pain, mouth swelling, other Cardiovascular: Denies: no symptoms, chest pain, edema, irregular heart rate, lightheadedness, palpitations, syncope, other Respiratory: Denies: no symptoms, cough, orthopnea, shortness of breath, SOB with excertion, SOB at rest, sputum, stridor, wheezing, other Gastrointestinal/Abdominal: Denies: no symptoms, abdomen distended, abdominal pain, black stools, tarry stools, blood in stool, constipated, diarrhea, difficulty swallowing, nausea, poor appetite, poor fluid intake, rectal bleeding , vomiting, other Genitourinary: Denies: no symptoms, burning, discharge, frequency, flank pain, hematuria, incontinence, pain, urgency, other Neurologic/Psychiatric: Denies: no symptoms, anxiety, depressed, emotional problems, headache, numbness, paresthesia, pre-existing deficit, seizure, tingling, tremors, weakness, other Allergies: Coded Allergies: NO KNOWN ALLERGIES (Unverified Allergy, Unknown, 10/15/15) Subjective Pt awake and alert. VS stable. O2 NC. Hgb remains low. Wants to go to snf. Objective Last 24 Hour Vital Signs Date Time Temp Pulse Resp B/P (MAP) Pulse Ox O2 Delivery O2 Flow Rate FiO2 10/29/18 04:00 97.0 60 20 125/66 (85) 100 10/29/18 03:29 62 10/29/18 00:00 97.0 63 130/78 (95) 100 10/28/18 23:26 62 10/28/18 23:01 Nasal Cannula 2.0 28 10/28/18 23:00 96 Nasal Cannula 2.0 28 10/28/18 23:00 67 20 Nasal Cannula 2.0 28 10/28/18 21:26 161/67 10/28/18 21:00 Nasal Cannula 2.0 10/28/18 20:00 97.3 67 161/67 (98) 10/28/18 19:00 62 10/28/18 16:00 97.3 74 18 150/64 (92) 99 10/28/18 16:00 74 10/28/18 12:00 98.1 61 18 145/66 (92) 100 10/28/18 12:00 61 10/28/18 09:00 Nasal Cannula 2.0 10/28/18 08:47 65 159/69 10/28/18 08:00 61 10/28/18 08:00 97.9 61 18 139/69 (92) 96 Intake and Output 10/28/18 10/29/18 19:00 07:00 Intake Total 640 ml 240 ml Balance 640 ml 240 ml Intake Oral 640 ml 240 ml Laboratory Tests 10/28/18 08:00: White Blood Count 10.0, Red Blood Count 2.43L, Hemoglobin 6.1*L, Hematocrit 19.2L, Mean Corpuscular Volume 79L, Mean Corpuscular Hemoglobin 25.1L, Mean Corpuscular Hemoglobin Concent 31.7L, Red Cell Distribution Width 19.4H, Platelet Count 236, Mean Platelet Volume 6.4L, Neutrophils (%) (Auto) , Lymphocytes (%) (Auto) , Monocytes (%) (Auto) , Eosinophils (%) (Auto) , Basophils (%) (Auto) , Differential Total Cells Counted 100, Neutrophils % ( Manual) 66, Lymphocytes % (Manual) 11L, Monocytes % (Manual) 7, Eosinophils % ( Manual) 13H, Basophils % (Manual) 3H, Band Neutrophils 0, Nucleated Red Blood Cells 2, Platelet Estimate Adequate, Platelet Morphology Normal, Polychromasia 2 +, Hypochromasia 4+, Anisocytosis 2+, Microcytosis 1+, Sodium Level 132L, Potassium Level 5.2H, Chloride Level 96L, Carbon Dioxide Level 24, Anion Gap 12 , Blood Urea Nitrogen 58H, Creatinine 8.8H, Estimat Glomerular Filtration Rate 5.6, Glucose Level 118H, Calcium Level 8.5 Height (Feet): 5 Height (Inches): 5.00 Weight (Pounds): 343 General Appearance: WD/WN EENT: TMs normal Neck: supple Cardiovascular: regular rhythm Respiratory/Chest: lungs clear Extremities: non-tender Edema: 1+ Leg (L), 1+ Leg (R) Edema: mild edema Skin: normal pigmentation Objective PHYSICAL EXAMINATION: VITAL SIGNS: Have been reviewed. GENERAL: The patient awake, alert, in mild distress. HEENT: Extraocular muscles intact. No lymphadenopathy noted. CARDIOVASCULAR: S1 and S2. No rubs or gallops. PULMONARY: Clear to auscultation bilaterally. No rales, rhonchi or wheezes. ABDOMINAL: Obese, nondistended and nontender. EXTREMITIES: A 2+ pitting edema. Malick Lizama MD Oct 29, 2018 06:38
[2018-10-29 08:00] VITALS: BP 142/66
[2018-10-29] MEDS: Calcium Acetate 667mg Tab ORAL SCH (09:48)
[2018-10-29] MEDS: Allopurinol 100mg Tab ORAL SCH (09:49)
--- NOTE | 2018-10-29 11:32 | Podiatric Progress Note ---
Assessment/Plan Patient Tawny Frias is a 63 year old female who was admitted on Oct 22, 2018 at 11:38 with Problems: (1) Diabetes mellitus type 2 with neurological manifestations (2) Congestive heart failure (CHF) (3) UTI (urinary tract infection) (4) Pneumonia (5) Blindness of both eyes (6) Morbid obesity (7) Coronary artery disease (8) ESRD (end stage renal disease) on dialysis Assessment/Plan R foot Bulla was lanced I & D after consent was received. The foot was cleansed with Betadine prior to procedure. the fluid was cultured. Order was given to apply Betadine to the blister and procedure areas. patient will be followed awaiting culture result and ID. Subjective Reason for consult F/u foot bulla s/p I & D Allergies: Coded Allergies: NO KNOWN ALLERGIES (Unverified Allergy, Unknown, 10/15/15) Subjective patient is seen by bedside s/p I & D blister r foot. Patient has no c/o. Patient denies f/c/n/v Objective Exam Last 24 Hour Vital Signs Date Time Temp Pulse Resp B/P (MAP) Pulse Ox O2 Delivery O2 Flow Rate FiO2 10/29/18 09:48 60 142/66 10/29/18 09:00 Nasal Cannula 2.0 10/29/18 08:00 97.1 60 18 142/66 (91) 100 60 10/29/18 07:42 63 16 Nasal Cannula 2.0 28 10/29/18 07:41 98 Nasal Cannula 2.0 28 10/29/18 07:41 Nasal Cannula 2.0 28 10/29/18 07:32 52 10/29/18 04:00 97.0 60 20 125/66 (85) 100 10/29/18 03:29 62 10/29/18 00:00 97.0 63 130/78 (95) 100 10/28/18 23:26 62 10/28/18 23:01 Nasal Cannula 2.0 28 10/28/18 23:00 96 Nasal Cannula 2.0 28 10/28/18 23:00 67 20 Nasal Cannula 2.0 28 10/28/18 21:26 161/67 10/28/18 21:00 Nasal Cannula 2.0 10/28/18 20:00 97.3 67 161/67 (98) 10/28/18 19:00 62 10/28/18 16:00 97.3 74 18 150/64 (92) 99 10/28/18 16:00 74 10/28/18 12:00 98.1 61 18 145/66 (92) 100 10/28/18 12:00 61 Microbiology Date/Time Source Procedure Growth Status 10/25/18 19:00 Blood Blood Culture - Preliminary NO GROWTH AFTER 72 HOURS Resulted 10/22/18 14:43 Nasal Nares MRSA Culture - Final NO METHICILLIN RESISTANT STAPH AUREUS... Complete 10/22/18 10:45 Urine,Clean Catch Urine Culture - Final NO GROWTH AFTER 48 HOURS Complete 10/22/18 14:43 Rectum VRE Culture - Final NO VANCOMYCIN RESISTANT ENTEROCOCCUS ... Complete 10/22/18 14:43 Rectum - Final NO CARBAPENEM-RESISTANT ENTEROBACTERI... Complete Dermatological Dermatological Narrative attention was directed to the R foot, multiple small blisteration is noted medial and the foot. a large Bulla is identified dorsal distal foot covering 2- 4 metatarsals and extended distally coving entire toes 2-4. Bulla is intact no drainage or discharge is noted. No cellulitis, no pus can be appreciated. medial hallux s/p I & D is stable no drainage or discharge is noted. L foot resolving bulla is noted, dry skin to the toes s/p blister. after lancing the blister noted to have clear yellowish fluid. Jimmy Huang DPM Oct 29, 2018 11:32
[2018-10-29 12:00] VITALS: BP 146/64
--- NOTE | 2018-10-29 12:13 | Pulmonology Progress Note ---
Assessment/Plan Problems: (1) Acute respiratory failure (2) End stage renal disease on dialysis (3) Bacteremia (4) Morbid obesity (5) Hypertension (6) Uncontrolled diabetes mellitus (7) UTI (urinary tract infection) Assessment/Plan seen by ortho stress test on Vancomycin all reviewed respiratory treatment titrate fio2 to sat of 92% check sputum check urine cultures iv abx as per ID sliding scale insulin coverage. Subjective ROS Limited/Unobtainable: No Constitutional: Reports: no symptoms HEENT: Repors: no symptoms Respiratory: Reports: no symptoms Allergies: Coded Allergies: NO KNOWN ALLERGIES (Unverified Allergy, Unknown, 10/15/15) Objective Last 24 Hour Vital Signs Date Time Temp Pulse Resp B/P (MAP) Pulse Ox O2 Delivery O2 Flow Rate FiO2 10/29/18 09:48 60 142/66 10/29/18 09:00 Nasal Cannula 2.0 10/29/18 08:00 97.1 60 18 142/66 (91) 100 60 10/29/18 07:42 63 16 Nasal Cannula 2.0 28 10/29/18 07:41 98 Nasal Cannula 2.0 28 10/29/18 07:41 Nasal Cannula 2.0 28 10/29/18 07:32 52 10/29/18 04:00 97.0 60 20 125/66 (85) 100 10/29/18 03:29 62 10/29/18 00:00 97.0 63 130/78 (95) 100 10/28/18 23:26 62 10/28/18 23:01 Nasal Cannula 2.0 28 10/28/18 23:00 96 Nasal Cannula 2.0 28 10/28/18 23:00 67 20 Nasal Cannula 2.0 28 10/28/18 21:26 161/67 10/28/18 21:00 Nasal Cannula 2.0 10/28/18 20:00 97.3 67 161/67 (98) 10/28/18 19:00 62 10/28/18 16:00 97.3 74 18 150/64 (92) 99 10/28/18 16:00 74 Intake and Output 10/28/18 10/29/18 19:00 07:00 Intake Total 640 ml 240 ml Balance 640 ml 240 ml Intake Oral 640 ml 240 ml General Appearance: WD/WN HEENT: normocephalic, atraumatic Respiratory/Chest: chest wall non-tender, lungs clear Breasts: no masses Cardiovascular: normal rate Abdomen: soft, non tender, no organomegaly Genitourinary: normal external genitalia Extremities: no cyanosis 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 normal, abnormal gait Lymphatic: no neck adenopathy Current Medications Medications (Trade) Dose Ordered Sig/Josi Route PRN Reason Start Time Stop Time Status Last Admin Dose Admin Acetaminophen (Tylenol) 650 mg Q4H PRN ORAL fever 10/22/18 13:28 11/21/18 13:27 Acetaminophen/ Hydrocodone Bitart ([place] 5/325) 1 tab Q6H PRN ORAL For Pain 10/27/18 18:00 11/03/18 17:59 10/28/18 20:33 Albuterol/ Ipratropium (Albuterol/ Ipratropium) 3 ml Q6H PRN HHN dyspnea 10/26/18 12:33 10/31/18 12:32 Allopurinol (Zyloprim) 100 mg DAILY ORAL 10/23/18 09:00 11/22/18 08:59 10/29/18 09:49 Amlodipine Besylate (Norvasc) 10 mg DAILY ORAL 10/24/18 09:00 11/23/18 08:59 10/29/18 09:48 Ampicillin Sodium/ Sulbactam Sodium 3 gm/Sodium Chloride 110 ml @ 220 mls/hr Q24H IVPB 10/24/18 18:00 10/31/18 17:59 10/28/18 17:24 Atorvastatin Calcium (Lipitor) 20 mg BEDTIME ORAL 10/28/18 21:00 11/21/18 20:59 10/28/18 20:32 Calcium Acetate (Phoslo) 667 mg DAILY ORAL 10/23/18 09:00 11/22/18 08:59 10/29/18 09:48 Clonidine HCl (Catapres Tab) 0.1 mg Q4H PRN ORAL For High Blood Pressure 10/22/18 13:30 11/21/18 13:29 10/28/18 21:26 Dextrose (Dextrose 50%) 25 ml Q30M PRN IV Hypoglycemia 10/22/18 13:45 11/21/18 13:30 Dextrose (Dextrose 50%) 50 ml Q30M PRN IV hypoglycemia 10/22/18 13:45 11/21/18 13:44 10/23/18 11:41 Diphenhydramine HCl (Benadryl) 25 mg Q8H PRN ORAL Itching 10/25/18 06:45 11/24/18 06:44 10/29/18 02:51 Epoetin Jose Ed Jesus (Procrit (for ESRD on dialysis)) 10,000 units SUN-SUN-SUN SUBQ 10/23/18 21:00 11/22/18 20:59 10/28/18 20:33 Gabapentin (Neurontin) 400 mg BID ORAL 10/24/18 18:00 11/23/18 17:59 10/29/18 09:48 Insulin Aspart (NovoLOG) BEFORE MEALS AND HS SUBQ 10/22/18 16:30 11/21/18 16:29 10/29/18 11:50 Morphine Sulfate (Morphine Sulfate) 1 mg Q4H PRN IVP For Pain 10/28/18 08:30 11/04/18 08:29 10/28/18 18:04 Ondansetron HCl (Zofran) 4 mg Q6H PRN IVP Nausea & Vomiting 10/22/18 13:30 11/21/18 13:29 10/26/18 05:37 Polyethylene Glycol (Miralax) 17 gm DAILY PRN ORAL Constipation 10/27/18 12:39 11/26/18 12:38 10/27/18 18:19 Regadenoson (Lexiscan) 0.4 mg ONCE PRN IV stress test 10/28/18 10:00 10/30/18 09:59 Sevelamer Carbonate (Renvela) 800 mg THREE TIMES A DAY ORAL 10/22/18 18:00 11/21/18 17:59 10/29/18 09:48 Vancomycin HCl (Vanco rx to dose) 1 ea DAILY PRN MISC Per rx protocol 10/24/18 11:15 11/23/18 11:14 Zolpidem Tartrate (Ambien) 5 mg HSPRN PRN ORAL Insomnia 10/28/18 08:30 11/04/18 08:29 Meghana Murillo MD Oct 29, 2018 12:13
--- NOTE | 2018-10-29 12:45 | General Progress Note ---
Assessment/Plan Problem List: (1) Congestive heart failure (CHF) ICD Codes: I50.9 - Heart failure, unspecified SNOMED: 77247235 (2) Anemia ICD Codes: D64.9 - Anemia, unspecified SNOMED: 415733245 Qualifiers: Qualified Codes: D64.9 - Anemia, unspecified (3) Hypertension ICD Codes: I10 - Essential (primary) hypertension SNOMED: 22003875 (4) Morbid obesity ICD Codes: E66.01 - Morbid (severe) obesity due to excess calories SNOMED: 229095200, 06457964638699 (5) End stage renal disease on dialysis ICD Codes: N18.6 - End stage renal failure on dialysis; Z99.2 - Dependence on renal dialysis SNOMED: 967242289 (6) Open wound of right great toe ICD Codes: S91.101A - Unspecified open wound of right great toe without damage to nail, initial encounter SNOMED: 961776395 Status: stable, progressing Assessment/Plan wound care ot pt diet dialysis heme f/u podiatry eval cbc bmp am dc to snf if clear Subjective Constitutional: Reports: weakness Allergies: Coded Allergies: NO KNOWN ALLERGIES (Unverified Allergy, Unknown, 10/15/15) All Systems: reviewed and negative except above Subjective o2nc sl gen pain Objective Last 24 Hour Vital Signs Date Time Temp Pulse Resp B/P (MAP) Pulse Ox O2 Delivery O2 Flow Rate FiO2 10/29/18 12:00 96.9 58 18 146/64 (91) 100 100 10/29/18 09:48 60 142/66 10/29/18 09:00 Nasal Cannula 2.0 10/29/18 08:00 97.1 60 18 142/66 (91) 100 60 10/29/18 07:42 63 16 Nasal Cannula 2.0 28 10/29/18 07:41 98 Nasal Cannula 2.0 28 10/29/18 07:41 Nasal Cannula 2.0 28 10/29/18 07:32 52 10/29/18 04:00 97.0 60 20 125/66 (85) 100 10/29/18 03:29 62 10/29/18 00:00 97.0 63 130/78 (95) 100 10/28/18 23:26 62 10/28/18 23:01 Nasal Cannula 2.0 28 10/28/18 23:00 96 Nasal Cannula 2.0 28 10/28/18 23:00 67 20 Nasal Cannula 2.0 28 10/28/18 21:26 161/67 10/28/18 21:00 Nasal Cannula 2.0 10/28/18 20:00 97.3 67 161/67 (98) 10/28/18 19:00 62 10/28/18 16:00 97.3 74 18 150/64 (92) 99 10/28/18 16:00 74 Intake and Output 10/28/18 10/29/18 19:00 07:00 Intake Total 640 ml 240 ml Balance 640 ml 240 ml Intake Oral 640 ml 240 ml Height (Feet): 5 Height (Inches): 5.00 Weight (Pounds): 343 General Appearance: lethargic EENT: normal ENT inspection Neck: normal alignment Cardiovascular: normal peripheral pulses, normal rate, regular rhythm Respiratory/Chest: chest wall non-tender, decreased breath sounds Abdomen: normal bowel sounds, non tender, soft Extremities: normal inspection Edema: no edema noted Arm (L), no edema noted Arm (R), no edema noted Leg (L), no edema noted Leg (R), no edema noted Pedal (L), no edema noted Pedal (R), no edema noted Generalized Neurologic: responsive, motor weakness Skin: normal pigmentation, warm/dry Objective right toe dressing c and Roderick Blanton DO Oct 29, 2018 12:45
--- NOTE | 2018-10-29 13:25 | Infectious Diseases Prog Note ---
Assessment/Plan Assessment/Plan Abx: Ceftriaxone x1 10/22 Assessment: R foot blisters/cellulitis -10/29 sp bedsie I+D; wound cx p -10/25 s/p bedsdie I+D; wound cx ? sent Gram positive bacteremia- real vs contaminant- r/o line infection- suspect these are all contaminants -10/25 BCx NTD (peripheral) -10/22 Bcx 1/4 CONS, 1/4 diphteroids; 10/24 2/4 S, mitis oralis (source? periheral or cental line) -2d Echo:No discrete vegetations seen, however SBE may not be excluded by transthoracic 2-D echo. Consider CLAY if clinically indicated. Afebrile NO Leukocytosis Pyuria- no UTI symptoms -u/a wbc tntc, nitneg, leuk +3; ucx Neg Severe anemia Hyperkalemia, SP SOB 2ry to CHF exacerbation -CXR: Cardiomegaly with pulmonary venous congestion -influenza sc neg ESRD on HD DM2 b/l eye blindness CHF, bradycardia 2ry hyperparathyroidism CAD s/p stent AOCD s/p AVG w recent rupture HTN morbid obesity Plan: -Continue empiric IV Vancomycin # 6/7-10 for GPC bacteremia and cellulitis -Continue Unasyn #6/7-10 -12/ SP Clindamycin #3 -f/u Repeat 2 sets of Bcx -f/u Bcx from HD line -f/u wound cx -for bone marrow biopsy per heme onc -f/u cx -Monitor CBC/CMP, temperatures -aspiration precautions -wound care -Podiatry f/u Thank you for this consultation. Will continue to follow along with you. Discussed with RN. Subjective Allergies: Coded Allergies: NO KNOWN ALLERGIES (Unverified Allergy, Unknown, 10/15/15) Subjective afebrile no leukocytosis repaet Bcx NTD s/p I+D R foot today, cx sent Objective Vital Signs Last 24 Hour Vital Signs Date Time Temp Pulse Resp B/P (MAP) Pulse Ox O2 Delivery O2 Flow Rate FiO2 10/29/18 12:00 96.9 58 18 146/64 (91) 100 100 10/29/18 09:48 60 142/66 10/29/18 09:00 Nasal Cannula 2.0 10/29/18 08:00 97.1 60 18 142/66 (91) 100 60 10/29/18 07:42 63 16 Nasal Cannula 2.0 28 10/29/18 07:41 98 Nasal Cannula 2.0 28 10/29/18 07:41 Nasal Cannula 2.0 28 10/29/18 07:32 52 10/29/18 04:00 97.0 60 20 125/66 (85) 100 10/29/18 03:29 62 10/29/18 00:00 97.0 63 130/78 (95) 100 10/28/18 23:26 62 10/28/18 23:01 Nasal Cannula 2.0 28 10/28/18 23:00 96 Nasal Cannula 2.0 28 10/28/18 23:00 67 20 Nasal Cannula 2.0 28 10/28/18 21:26 161/67 10/28/18 21:00 Nasal Cannula 2.0 10/28/18 20:00 97.3 67 161/67 (98) 10/28/18 19:00 62 10/28/18 16:00 97.3 74 18 150/64 (92) 99 10/28/18 16:00 74 Height (Feet): 5 Height (Inches): 5.00 Weight (Pounds): 343 Objective GENERAL: The patient awake, alert, in mild distress. HEENT: Extraocular muscles intact. No lymphadenopathy noted. CARDIOVASCULAR: S1 and S2. No rubs or gallops. PULMONARY: Clear to auscultation bilaterally. No rales, rhonchi or wheezes. ABDOMINAL: Obese, nondistended and nontender. EXTREMITIES: A 2+ pitting edema. R foot blisters with surrounding cellulitis Current Medications Medications (Trade) Dose Ordered Sig/Josi Route PRN Reason Start Time Stop Time Status Last Admin Dose Admin Acetaminophen (Tylenol) 650 mg Q4H PRN ORAL fever 10/22/18 13:28 11/21/18 13:27 Acetaminophen/ Hydrocodone Bitart ([place] 5/325) 1 tab Q6H PRN ORAL For Pain 10/27/18 18:00 11/03/18 17:59 10/28/18 20:33 Albuterol/ Ipratropium (Albuterol/ Ipratropium) 3 ml Q6H PRN HHN dyspnea 10/26/18 12:33 10/31/18 12:32 Allopurinol (Zyloprim) 100 mg DAILY ORAL 10/23/18 09:00 11/22/18 08:59 10/29/18 09:49 Amlodipine Besylate (Norvasc) 10 mg DAILY ORAL 10/24/18 09:00 11/23/18 08:59 10/29/18 09:48 Ampicillin Sodium/ Sulbactam Sodium 3 gm/Sodium Chloride 110 ml @ 220 mls/hr Q24H IVPB 10/24/18 18:00 10/31/18 17:59 10/28/18 17:24 Atorvastatin Calcium (Lipitor) 20 mg BEDTIME ORAL 10/28/18 21:00 11/21/18 20:59 10/28/18 20:32 Calcium Acetate (Phoslo) 667 mg DAILY ORAL 10/23/18 09:00 11/22/18 08:59 10/29/18 09:48 Clonidine HCl (Catapres Tab) 0.1 mg Q4H PRN ORAL For High Blood Pressure 10/22/18 13:30 11/21/18 13:29 10/28/18 21:26 Dextrose (Dextrose 50%) 25 ml Q30M PRN IV Hypoglycemia 10/22/18 13:45 11/21/18 13:30 Dextrose (Dextrose 50%) 50 ml Q30M PRN IV hypoglycemia 10/22/18 13:45 11/21/18 13:44 10/23/18 11:41 Diphenhydramine HCl (Benadryl) 25 mg Q8H PRN ORAL Itching 10/25/18 06:45 11/24/18 06:44 10/29/18 02:51 Epoetin Jose De Jesus (Procrit (for ESRD on dialysis)) 10,000 units SUN-SUN-SUN SUBQ 10/23/18 21:00 11/22/18 20:59 10/28/18 20:33 Gabapentin (Neurontin) 400 mg BID ORAL 10/24/18 18:00 11/23/18 17:59 10/29/18 09:48 Insulin Aspart (NovoLOG) BEFORE MEALS AND HS SUBQ 10/22/18 16:30 11/21/18 16:29 10/29/18 11:50 Morphine Sulfate (Morphine Sulfate) 1 mg Q4H PRN IVP For Pain 10/28/18 08:30 11/04/18 08:29 10/28/18 18:04 Ondansetron HCl (Zofran) 4 mg Q6H PRN IVP Nausea & Vomiting 10/22/18 13:30 11/21/18 13:29 10/26/18 05:37 Polyethylene Glycol (Miralax) 17 gm DAILY PRN ORAL Constipation 10/27/18 12:39 11/26/18 12:38 10/27/18 18:19 Regadenoson (Lexiscan) 0.4 mg ONCE PRN IV stress test 10/28/18 10:00 10/30/18 09:59 Sevelamer Carbonate (Renvela) 800 mg THREE TIMES A DAY ORAL 10/22/18 18:00 11/21/18 17:59 10/29/18 09:48 Vancomycin HCl (Vanco rx to dose) 1 ea DAILY PRN MISC Per rx protocol 10/24/18 11:15 11/23/18 11:14 Zolpidem Tartrate (Ambien) 5 mg HSPRN PRN ORAL Insomnia 10/28/18 08:30 11/04/18 08:29 Suis Vanegas M.D. Oct 29, 2018 13:25
--- NOTE | 2018-10-29 15:36 | GI Progress Note ---
Assessment/Plan Problems: (1) End stage renal disease on dialysis ICD Codes: N18.6 - End stage renal failure on dialysis; Z99.2 - Dependence on renal dialysis SNOMED: 592260242 (2) Uncontrolled diabetes mellitus ICD Codes: E11.9 - Type 2 diabetes mellitus without complications SNOMED: 021281763 (3) Morbid obesity ICD Codes: E66.01 - Morbid (severe) obesity due to excess calories SNOMED: 321650410, 22241397543528 (4) Anemia ICD Codes: D64.9 - Anemia, unspecified SNOMED: 334090353 Qualifiers: Qualified Codes: D64.9 - Anemia, unspecified (5) Iron deficiency ICD Codes: E61.1 - Iron deficiency SNOMED: 44855601 Status: stable Status Narrative Discussed with Dr. Garcia. Assessment/Plan Hx of recent colonoscopy at [facility] which was unremarkable OB stool negative. s/p EGD >> gastritis, no active source of bleeding okay for DC per GI standpoint advance diet monitor H&H bowel regime ppi fu labs The patient was seen and examined at bedside and all new and available data was reviewed in the patients chart. I agree with the above findings, impression and plan. (Patient seen earlier today. Signature stamp does not reflect patient encounter time.). - Jamison Garcia MD Subjective Gastrointestinal/Abdominal: Reports: no symptoms Objective Last 24 Hour Vital Signs Date Time Temp Pulse Resp B/P (MAP) Pulse Ox O2 Delivery O2 Flow Rate FiO2 10/29/18 12:00 96.9 58 18 146/64 (91) 100 100 10/29/18 11:41 52 10/29/18 09:48 60 142/66 10/29/18 09:00 Nasal Cannula 2.0 10/29/18 08:00 97.1 60 18 142/66 (91) 100 60 10/29/18 07:42 63 16 Nasal Cannula 2.0 28 10/29/18 07:41 98 Nasal Cannula 2.0 28 10/29/18 07:41 Nasal Cannula 2.0 28 10/29/18 07:32 52 10/29/18 04:00 97.0 60 20 125/66 (85) 100 10/29/18 03:29 62 10/29/18 00:00 97.0 63 130/78 (95) 100 10/28/18 23:26 62 10/28/18 23:01 Nasal Cannula 2.0 28 10/28/18 23:00 96 Nasal Cannula 2.0 28 10/28/18 23:00 67 20 Nasal Cannula 2.0 28 10/28/18 21:26 161/67 10/28/18 21:00 Nasal Cannula 2.0 10/28/18 20:00 97.3 67 161/67 (98) 10/28/18 19:00 62 10/28/18 16:00 97.3 74 18 150/64 (92) 99 10/28/18 16:00 74 Intake and Output 10/28/18 10/29/18 19:00 07:00 Intake Total 640 ml 240 ml Balance 640 ml 240 ml Intake Oral 640 ml 240 ml Height (Feet): 5 Height (Inches): 5.00 Weight (Pounds): 343 General Appearance: WD/WN, no apparent distress, alert Cardiovascular: normal rate Respiratory/Chest: normal breath sounds, no respiratory distress Abdominal Exam: normal bowel sounds, non tender, soft Extremities: normal range of motion, non-tender Jaime Martin TRAFFIC INVESTIGATOR Oct 29, 2018 15:36
--- NOTE | 2018-10-29 15:45 | Cardiac Electrophysiology PN ---
Assessment/Plan Assessment/Plan 1. Congestive heart failure due to hypertensive heart disease and diastolic dysfunction. Echocardiogram showed EF 55%. Continue dialysis. 2. Hypertensive heart disease. On Norvasc 10 mg daily and HD. On p.r.n.clonidine. 3. Recurrent non sustained VTs up to 11 beats. No syncope. Nl EF Nuclear Stress test at [facility] on 10/25 showed no ischemia. 4. Bradycardia, keep off Beta blockers, Cardizem, Verapamil or Clonidine. DC prn Clonidine. 5. Hyperlipidemia, on Lipitor. 6. Positive blood culture and Right toe blister. Podiatry and ID FU. S/P Debridement On Abx per ID 7. End-stage renal disease, on hemodialysis. 8. NIDDM DW RN Subjective Subjective No CP or SOB. Had transient bradycardia to 30s that improved.Asymptomatic Objective Last 24 Hour Vital Signs Date Time Temp Pulse Resp B/P (MAP) Pulse Ox O2 Delivery O2 Flow Rate FiO2 10/29/18 12:00 96.9 58 18 146/64 (91) 100 100 10/29/18 11:41 52 10/29/18 09:48 60 142/66 10/29/18 09:00 Nasal Cannula 2.0 10/29/18 08:00 97.1 60 18 142/66 (91) 100 60 10/29/18 07:42 63 16 Nasal Cannula 2.0 28 10/29/18 07:41 98 Nasal Cannula 2.0 28 10/29/18 07:41 Nasal Cannula 2.0 28 10/29/18 07:32 52 10/29/18 04:00 97.0 60 20 125/66 (85) 100 10/29/18 03:29 62 10/29/18 00:00 97.0 63 130/78 (95) 100 10/28/18 23:26 62 10/28/18 23:01 Nasal Cannula 2.0 28 10/28/18 23:00 96 Nasal Cannula 2.0 28 10/28/18 23:00 67 20 Nasal Cannula 2.0 28 10/28/18 21:26 161/67 10/28/18 21:00 Nasal Cannula 2.0 10/28/18 20:00 97.3 67 161/67 (98) 10/28/18 19:00 62 10/28/18 16:00 97.3 74 18 150/64 (92) 99 10/28/18 16:00 74 Intake and Output 10/28/18 10/29/18 19:00 07:00 Intake Total 640 ml 240 ml Balance 640 ml 240 ml Intake Oral 640 ml 240 ml Objective HEAD AND NECK: No jugular venous distention. LUNGS: Decreased breath sounds. CARDIOVASCULAR: Lanre S1 and S2 with no gallop. ABDOMEN: Morbidly obese. EXTREMITIES: 1+ pitting edema.Right big toe s/p I&D Shalom Vinson MD Oct 29, 2018 15:45
[2018-10-29 16:00] VITALS: BP 127/83
[2018-10-29] MEDS: Ampicillin/Sulbactam Sod 3 GM in NS 110 ML IVPB SCH (18:20)
[2018-10-29] MEDS ORDERED: UNASYN 3 GM VIAL3 GM IJ (18:42)
[2018-10-29] MEDS ORDERED: DAPTOMYCIN350 MG IV (18:47)
[2018-10-29 20:00] VITALS: BP 120/61
[2018-10-29] MEDS: Atorvastatin 20mg tab ORAL SCH (21:31)
[2018-10-29] MEDS: Norco 5mg/325mg tab ORAL PRN (22:27)
[2018-10-30] VITALS: BP 128/59
[2018-10-30 04:00] VITALS: BP 126/75
[2018-10-30] MEDS: NovoLOG Insulin Flexpen SUBQ SCH ×2 (05:42→11:39)
--- NOTE | 2018-10-30 06:22 | General Progress Note ---
Assessment/Plan Assessment/Plan # Anemia of chronic disease due to underlying chronic medical issues, multifactorial. 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 Hx of esrd on hd. --> Hgb remains low at 6.5 --> Prior anemia w/u has been reviewed. Ferritin >1999 --> No evidence of hemolysis is noted, peripheral smear has been reviewed. --> Hgb goal >7. Transfuse prn. --> EGD 10/24 --> off heparin sq at this time, is on scds --> bone marrow biopsy that can be done as an outpatient. agree with pcp # Anemia of chronic kidney disease. --> Je[employer] Witness and does not take any blood products --> on epogen, will continue --> would refrain from iv iron, since is overloaded --> b1, b12, folate as outpatient as well # End-stage renal disease on hemodialysis. Nephro is following, appreciate recs. --> The patient is on hemodialysis due to shortness of breath. # Mild hyperkalemia, potassium 6.2 on admission --> Currently remains elevated at 5.2--> improves with HD --> HD 3x a week # Hypertension. Cardiology is following, appreciate recs. --> stress test pending as per cards, most recent test was negative per Dr. Vinson --> Adjust medications as appropriate. # Diabetes mellitus per primary care physician. --> Cont on insulin --> Cont to monitor BS levels : GREATLY APPRECIATE CONSULTATION. Subjective Constitutional: Denies: no symptoms, chills, diaphoresis, fever, malaise, weakness, other HEENT: Denies: no symptoms, eye pain, blurred vision, tearing, double vision, ear pain, ear discharge, nose pain, nose congestion, throat pain, throat swelling, mouth pain, mouth swelling, other Cardiovascular: Denies: no symptoms, chest pain, edema, irregular heart rate, lightheadedness, palpitations, syncope, other Respiratory: Denies: no symptoms, cough, orthopnea, shortness of breath, SOB with excertion, SOB at rest, sputum, stridor, wheezing, other Gastrointestinal/Abdominal: Denies: no symptoms, abdomen distended, abdominal pain, black stools, tarry stools, blood in stool, constipated, diarrhea, difficulty swallowing, nausea, poor appetite, poor fluid intake, rectal bleeding , vomiting, other Genitourinary: Denies: no symptoms, burning, discharge, frequency, flank pain, hematuria, incontinence, pain, urgency, other Neurologic/Psychiatric: Denies: no symptoms, anxiety, depressed, emotional problems, headache, numbness, paresthesia, pre-existing deficit, seizure, tingling, tremors, weakness, other Endocrine: Denies: no symptoms, excessive sweating, flushing, intolerance to cold, intolerance to heat, increased hunger, increased thirst, increased urine, unexplained weight gain, unexplained weight loss, other Allergies: Coded Allergies: NO KNOWN ALLERGIES (Unverified Allergy, Unknown, 10/15/15) Subjective Pt awake and alert. VS stable. O2 NC. Tolerated HD well last night. Objective Last 24 Hour Vital Signs Date Time Temp Pulse Resp B/P (MAP) Pulse Ox O2 Delivery O2 Flow Rate FiO2 10/30/18 04:00 97.8 60 19 126/75 (92) 100 60 10/30/18 03:32 58 10/30/18 00:00 98.0 65 19 128/59 (82) 99 65 10/29/18 22:18 99 Nasal Cannula 2.0 28 10/29/18 22:17 49 20 Nasal Cannula 2.0 28 10/29/18 22:17 Nasal Cannula 2.0 28 10/29/18 21:03 40 10/29/18 21:00 Nasal Cannula 2.0 10/29/18 20:00 97.3 62 19 120/61 (80) 96 62 10/29/18 16:00 96.8 53 18 127/83 (98) 100 53 10/29/18 15:28 41 10/29/18 12:00 96.9 58 18 146/64 (91) 100 100 10/29/18 11:41 52 10/29/18 09:48 60 142/66 10/29/18 09:00 Nasal Cannula 2.0 10/29/18 08:00 97.1 60 18 142/66 (91) 100 60 10/29/18 07:42 63 16 Nasal Cannula 2.0 28 10/29/18 07:41 98 Nasal Cannula 2.0 28 10/29/18 07:41 Nasal Cannula 2.0 28 10/29/18 07:32 52 Intake and Output 10/29/18 10/30/18 18:59 06:59 Intake Total 390 ml 0 ml Balance 390 ml 0 ml Intake Oral 390 ml 0 ml Height (Feet): 5 Height (Inches): 5.00 Weight (Pounds): 343 Objective PHYSICAL EXAMINATION: VITAL SIGNS: Have been reviewed. GENERAL: The patient awake, alert, in mild distress. HEENT: Extraocular muscles intact. CARDIOVASCULAR: S1 and S2. No rubs or gallops. PULMONARY: Clear to auscultation bilaterally. No rales, rhonchi or wheezes b/l ABDOMINAL: Obese, nondistended and nontender. EXTREMITIES: A 2+ pitting edema. Malick Lizama MD Oct 30, 2018 06:22
[2018-10-30 08:00] VITALS: BP 148/74
[2018-10-30] MEDS: Allopurinol 100mg Tab ORAL SCH (08:36)
[2018-10-30] MEDS: Calcium Acetate 667mg Tab ORAL SCH (08:37)
[2018-10-30 08:48] LABS: HEMATOCRIT 21.4 % (37.0-47.0); MEAN CORPUSCULAR VOLUME 79 FL (80-99); PLATELET COUNT 272 K/UL (150-450); RED CELL DISTRIBUTION WIDTH 20.6 % (11.6-14.8); WHITE BLOOD COUNT 9.5 K/UL (4.8-10.8)
[2018-10-30] MEDS: Norco 5mg/325mg tab ORAL PRN (08:55)
[2018-10-30 08:56] LABS: HEMOGLOBIN 6.4 G/DL (12.0-16.0)
[2018-10-30 09:31] LABS: ANION GAP 12 mmol/L (5-15); BLOOD UREA NITROGEN 55 mg/dL (7-18); CALCIUM 8.6 MG/DL (8.5-10.1); CARBON DIOXIDE 23 MMOL/L (21-32); CHLORIDE 98 MMOL/L (98-107); CREATININE 8.1 MG/DL (0.55-1.30); POTASSIUM 5.2 MMOL/L (3.5-5.1); SODIUM 133 MMOL/L (136-145)
--- NOTE | 2018-10-30 10:00 | General Progress Note ---
Assessment/Plan Problem List: (1) End stage renal disease on dialysis ICD Codes: N18.6 - End stage renal failure on dialysis; Z99.2 - Dependence on renal dialysis SNOMED: 832045244 (2) Blindness of both eyes ICD Codes: H54.0 - Blindness SNOMED: 879421330 (3) Morbid obesity ICD Codes: E66.01 - Morbid (severe) obesity due to excess calories SNOMED: 226921585, 94072422596427 (4) Coronary artery disease ICD Codes: I25.10 - Coronary artery disease SNOMED: 92653620 (5) History of colonic polyps ICD Codes: Z86.010 - Personal history of colonic polyps SNOMED: 441028201 (6) Hypertension ICD Codes: I10 - Essential (primary) hypertension SNOMED: 08416079 (7) Anemia ICD Codes: D64.9 - Anemia, unspecified SNOMED: 861613693 Qualifiers: Qualified Codes: D64.9 - Anemia, unspecified Assessment/Plan Hx of recent colonoscopy at [facility] which was unremarkable OB stool negative. s/p EGD >> gastritis, no active source of bleeding monitor H&H bowel regime ppi fu labs patient refuse blood transfusion Subjective ROS Limited/Unobtainable: Yes Allergies: Coded Allergies: NO KNOWN ALLERGIES (Unverified Allergy, Unknown, 10/15/15) Objective Last 24 Hour Vital Signs Date Time Temp Pulse Resp B/P (MAP) Pulse Ox O2 Delivery O2 Flow Rate FiO2 10/30/18 09:00 Nasal Cannula 2.0 10/30/18 08:37 57 148/74 10/30/18 08:27 Nasal Cannula 2.0 28 10/30/18 08:27 57 18 Nasal Cannula 2.0 28 10/30/18 08:27 98 2.0 28 10/30/18 08:00 98.1 70 20 148/74 (98) 98 70 10/30/18 04:00 97.8 60 19 126/75 (92) 100 60 10/30/18 03:32 58 10/30/18 00:00 98.0 65 19 128/59 (82) 99 65 10/29/18 22:18 99 Nasal Cannula 2.0 28 10/29/18 22:17 49 20 Nasal Cannula 2.0 28 10/29/18 22:17 Nasal Cannula 2.0 28 10/29/18 21:03 40 10/29/18 21:00 Nasal Cannula 2.0 10/29/18 20:00 97.3 62 19 120/61 (80) 96 62 10/29/18 16:00 96.8 53 18 127/83 (98) 100 53 10/29/18 15:28 41 10/29/18 12:00 96.9 58 18 146/64 (91) 100 100 10/29/18 11:41 52 Intake and Output 10/29/18 10/30/18 19:00 07:00 Intake Total 390 ml 0 ml Balance 390 ml 0 ml Intake Oral 390 ml 0 ml Laboratory Tests 10/30/18 08:20: White Blood Count 9.5, Red Blood Count 2.70L, Hemoglobin 6.4*L, Hematocrit 21.4L , Mean Corpuscular Volume 79L, Mean Corpuscular Hemoglobin 23.8L, Mean Corpuscular Hemoglobin Concent 30.0L, Red Cell Distribution Width 20.6H, Platelet Count 272, Mean Platelet Volume 6.6, Neutrophils (%) (Auto) , Lymphocytes (%) (Auto) , Monocytes (%) (Auto) , Eosinophils (%) (Auto) , Basophils (%) (Auto) , Neutrophils % (Manual) [Pending], Lymphocytes % (Manual) [Pending], Platelet Estimate [Pending], Platelet Morphology [Pending], Sodium Level 133L, Potassium Level 5.2H, Chloride Level 98, Carbon Dioxide Level 23, Anion Gap 12, Blood Urea Nitrogen 55H, Creatinine 8.1H, Estimat Glomerular Filtration Rate 6.1, Glucose Level 114H, Calcium Level 8.6 Height (Feet): 5 Height (Inches): 5.00 Weight (Pounds): 334 General Appearance: no apparent distress EENT: normal ENT inspection Neck: supple Cardiovascular: normal rate Respiratory/Chest: decreased breath sounds Abdomen: normal bowel sounds, non tender, soft Extremities: non-tender Jamison Garcia MD Oct 30, 2018 10:00
--- NOTE | 2018-10-30 11:37 | Cardiac Electrophysiology PN ---
Assessment/Plan Assessment/Plan 1. Congestive heart failure due to hypertensive heart disease and diastolic dysfunction. Echocardiogram showed EF 55%. On dialysis. 2. Hypertensive heart disease. On Norvasc 10 mg daily and HD. 3. Recurrent non sustained VTs up to 11 beats. No syncope. Nl EF Nuclear Stress test at [facility] on 10/25 showed no ischemia. 4. Bradycardia, keep off Beta blockers, Cardizem, Verapamil or Clonidine. 5. Hyperlipidemia, on Lipitor. 6. Positive blood culture and Right toe blister. Podiatry and ID FU. S/P Debridement On Abx per ID 7. End-stage renal disease, on hemodialysis. 8. NIDDM DW RN Subjective Subjective No CP or SOB. No further bradycardia.Asymptomatic Objective Last 24 Hour Vital Signs Date Time Temp Pulse Resp B/P (MAP) Pulse Ox O2 Delivery O2 Flow Rate FiO2 10/30/18 09:00 Nasal Cannula 2.0 10/30/18 08:37 57 148/74 10/30/18 08:27 Nasal Cannula 2.0 28 10/30/18 08:27 57 18 Nasal Cannula 2.0 28 10/30/18 08:27 98 2.0 28 10/30/18 08:00 98.1 70 20 148/74 (98) 98 70 10/30/18 04:00 97.8 60 19 126/75 (92) 100 60 10/30/18 03:32 58 10/30/18 00:00 98.0 65 19 128/59 (82) 99 65 10/29/18 22:18 99 Nasal Cannula 2.0 28 10/29/18 22:17 49 20 Nasal Cannula 2.0 28 10/29/18 22:17 Nasal Cannula 2.0 28 10/29/18 21:03 40 10/29/18 21:00 Nasal Cannula 2.0 10/29/18 20:00 97.3 62 19 120/61 (80) 96 62 10/29/18 16:00 96.8 53 18 127/83 (98) 100 53 10/29/18 15:28 41 10/29/18 12:00 96.9 58 18 146/64 (91) 100 100 10/29/18 11:41 52 Intake and Output 10/29/18 10/30/18 19:00 07:00 Intake Total 390 ml 0 ml Balance 390 ml 0 ml Intake Oral 390 ml 0 ml Laboratory Tests Test 10/30/18 08:20 10/30/18 10:00 White Blood Count 9.5 K/UL (4.8-10.8) Red Blood Count 2.70 M/UL (4.20-5.40) L Hemoglobin 6.4 G/DL (12.0-16.0) *L Hematocrit 21.4 % (37.0-47.0) L Mean Corpuscular Volume 79 FL (80-99) L Mean Corpuscular Hemoglobin 23.8 PG (27.0-31.0) L Mean Corpuscular Hemoglobin Concent 30.0 G/DL (32.0-36.0) L Red Cell Distribution Width 20.6 % (11.6-14.8) H Platelet Count 272 K/UL (150-450) Mean Platelet Volume 6.6 FL (6.5-10.1) Neutrophils (%) (Auto) % (45.0-75.0) Lymphocytes (%) (Auto) % (20.0-45.0) Monocytes (%) (Auto) % (1.0-10.0) Eosinophils (%) (Auto) % (0.0-3.0) Basophils (%) (Auto) % (0.0-2.0) Differential Total Cells Counted 100 Neutrophils % (Manual) 66 % (45-75) Lymphocytes % (Manual) 10 % (20-45) L Monocytes % (Manual) 8 % (1-10) Eosinophils % (Manual) 15 % (0-3) H Basophils % (Manual) 1 % (0-2) Band Neutrophils 0 % (0-8) Nucleated Red Blood Cells 5 /100 WBC Platelet Estimate Adequate Platelet Morphology Normal Hypochromasia 4+ Anisocytosis 2+ Microcytosis 1+ Sodium Level 133 MMOL/L (136-145) L Potassium Level 5.2 MMOL/L (3.5-5.1) H Chloride Level 98 MMOL/L (98-107) Carbon Dioxide Level 23 MMOL/L (21-32) Anion Gap 12 mmol/L (5-15) Blood Urea Nitrogen 55 mg/dL (7-18) H Creatinine 8.1 MG/DL (0.55-1.30) H Estimat Glomerular Filtration Rate 6.1 mL/min (>60) Glucose Level 114 MG/DL (74-106) H Calcium Level 8.6 MG/DL (8.5-10.1) Random Vancomycin Level 16.2 ug/mL Microbiology Date/Time Source Procedure Growth Status 10/29/18 11:50 Body Fluid Other Gram Stain Pending Resulted 10/29/18 11:50 Body Fluid Other Aerobic Culture - Preliminary Resulted Objective HEAD AND NECK: No jugular venous distention. LUNGS: Decreased breath sounds. CARDIOVASCULAR: Lanre S1 and S2 with no gallop. ABDOMEN: Morbidly obese. EXTREMITIES: 1+ pitting edema.Right big toe s/p I&D Shalom Vinson MD Oct 30, 2018 11:37
[2018-10-30 12:00] VITALS: BP 164/130
[2018-10-30] MEDS ORDERED: Vancomycin 1gm/D5W 275ml IVPB SCH ×2 (12:00)
--- NOTE | 2018-10-30 12:02 | Pulmonology Progress Note ---
Assessment/Plan Problems: (1) Acute respiratory failure (2) End stage renal disease on dialysis (3) Bacteremia (4) Morbid obesity (5) Hypertension (6) Uncontrolled diabetes mellitus (7) UTI (urinary tract infection) Assessment/Plan doing better eating well all reviewed respiratory treatment titrate fio2 to sat of 92% check sputum check urine cultures sliding scale insulin coverage. on Vancomycin Unasyn for 5 days at home Subjective ROS Limited/Unobtainable: No Constitutional: Reports: no symptoms HEENT: Repors: no symptoms Respiratory: Reports: no symptoms Allergies: Coded Allergies: NO KNOWN ALLERGIES (Unverified Allergy, Unknown, 10/15/15) Objective Last 24 Hour Vital Signs Date Time Temp Pulse Resp B/P (MAP) Pulse Ox O2 Delivery O2 Flow Rate FiO2 10/30/18 09:00 Nasal Cannula 2.0 10/30/18 08:37 57 148/74 10/30/18 08:27 Nasal Cannula 2.0 28 10/30/18 08:27 57 18 Nasal Cannula 2.0 28 10/30/18 08:27 98 2.0 28 10/30/18 08:00 98.1 70 20 148/74 (98) 98 70 10/30/18 04:00 97.8 60 19 126/75 (92) 100 60 10/30/18 03:32 58 10/30/18 00:00 98.0 65 19 128/59 (82) 99 65 10/29/18 22:18 99 Nasal Cannula 2.0 28 10/29/18 22:17 49 20 Nasal Cannula 2.0 28 10/29/18 22:17 Nasal Cannula 2.0 28 10/29/18 21:03 40 10/29/18 21:00 Nasal Cannula 2.0 10/29/18 20:00 97.3 62 19 120/61 (80) 96 62 10/29/18 16:00 96.8 53 18 127/83 (98) 100 53 10/29/18 15:28 41 Intake and Output 10/29/18 10/30/18 19:00 07:00 Intake Total 390 ml 0 ml Balance 390 ml 0 ml Intake Oral 390 ml 0 ml General Appearance: WD/WN HEENT: normocephalic, atraumatic Respiratory/Chest: chest wall non-tender, lungs clear Cardiovascular: normal peripheral pulses, regular rhythm Abdomen: normal bowel sounds, soft, non tender Microbiology Date/Time Source Procedure Growth Status 10/29/18 11:50 Body Fluid Other Gram Stain - Final Resulted 10/29/18 11:50 Body Fluid Other Aerobic Culture - Preliminary Resulted Laboratory Tests 10/30/18 08:20: White Blood Count 9.5, Red Blood Count 2.70L, Hemoglobin 6.4*L, Hematocrit 21.4L , Mean Corpuscular Volume 79L, Mean Corpuscular Hemoglobin 23.8L, Mean Corpuscular Hemoglobin Concent 30.0L, Red Cell Distribution Width 20.6H, Platelet Count 272, Mean Platelet Volume 6.6, Neutrophils (%) (Auto) , Lymphocytes (%) (Auto) , Monocytes (%) (Auto) , Eosinophils (%) (Auto) , Basophils (%) (Auto) , Differential Total Cells Counted 100, Neutrophils % ( Manual) 66, Lymphocytes % (Manual) 10L, Monocytes % (Manual) 8, Eosinophils % ( Manual) 15H, Basophils % (Manual) 1, Band Neutrophils 0, Nucleated Red Blood Cells 5, Platelet Estimate Adequate, Platelet Morphology Normal, Hypochromasia 4 +, Anisocytosis 2+, Microcytosis 1+, Sodium Level 133L, Potassium Level 5.2H, Chloride Level 98, Carbon Dioxide Level 23, Anion Gap 12, Blood Urea Nitrogen 55H, Creatinine 8.1H, Estimat Glomerular Filtration Rate 6.1, Glucose Level 114H , Calcium Level 8.6 10/30/18 10:00: Random Vancomycin Level 16.2 Current Medications Medications (Trade) Dose Ordered Sig/Josi Route PRN Reason Start Time Stop Time Status Last Admin Dose Admin Acetaminophen (Tylenol) 650 mg Q4H PRN ORAL fever 10/22/18 13:28 11/21/18 13:27 Acetaminophen/ Hydrocodone Bitart ([place] 5/325) 1 tab Q6H PRN ORAL For Pain 10/27/18 18:00 11/03/18 17:59 10/30/18 08:55 Albuterol/ Ipratropium (Albuterol/ Ipratropium) 3 ml Q6H PRN HHN dyspnea 10/26/18 12:33 10/31/18 12:32 Allopurinol (Zyloprim) 100 mg DAILY ORAL 10/23/18 09:00 11/22/18 08:59 10/30/18 08:36 Amlodipine Besylate (Norvasc) 10 mg DAILY ORAL 10/24/18 09:00 11/23/18 08:59 10/30/18 08:37 Ampicillin Sodium/ Sulbactam Sodium 3 gm/Sodium Chloride 110 ml @ 220 mls/hr Q24H IVPB 10/24/18 18:00 10/31/18 17:59 10/29/18 18:20 Atorvastatin Calcium (Lipitor) 20 mg BEDTIME ORAL 10/28/18 21:00 11/21/18 20:59 10/29/18 21:31 Calcium Acetate (Phoslo) 667 mg DAILY ORAL 10/23/18 09:00 11/22/18 08:59 10/30/18 08:37 Dextrose (Dextrose 50%) 25 ml Q30M PRN IV Hypoglycemia 10/22/18 13:45 11/21/18 13:30 Dextrose (Dextrose 50%) 50 ml Q30M PRN IV hypoglycemia 10/22/18 13:45 11/21/18 13:44 10/23/18 11:41 Diphenhydramine HCl (Benadryl) 25 mg Q8H PRN ORAL Itching 10/25/18 06:45 11/24/18 06:44 10/30/18 08:54 Epoetin Jose D Ejesus (Procrit (for ESRD on dialysis)) 10,000 units SUN-SUN-SUN SUBQ 10/23/18 21:00 11/22/18 20:59 10/28/18 20:33 Gabapentin (Neurontin) 400 mg BID ORAL 10/24/18 18:00 11/23/18 17:59 10/30/18 08:37 Insulin Aspart (NovoLOG) BEFORE MEALS AND HS SUBQ 10/22/18 16:30 11/21/18 16:29 10/30/18 11:39 Morphine Sulfate (Morphine Sulfate) 1 mg Q4H PRN IVP For Pain 10/28/18 08:30 11/04/18 08:29 10/28/18 18:04 Ondansetron HCl (Zofran) 4 mg Q6H PRN IVP Nausea & Vomiting 10/22/18 13:30 11/21/18 13:29 10/26/18 05:37 Polyethylene Glycol (Miralax) 17 gm DAILY PRN ORAL Constipation 10/27/18 12:39 11/26/18 12:38 10/27/18 18:19 Sevelamer Carbonate (Renvela) 800 mg THREE TIMES A DAY ORAL 10/22/18 18:00 11/21/18 17:59 10/30/18 08:37 Vancomycin HCl (Vanco rx to dose) 1 ea DAILY PRN MISC Per rx protocol 10/24/18 11:15 11/23/18 11:14 Vancomycin HCl 1 gm/Dextrose 275 ml @ 183.708 mls/hr ONCE IVPB 10/30/18 12:00 10/30/18 14:00 10/30/18 11:59 Zolpidem Tartrate (Ambien) 5 mg HSPRN PRN ORAL Insomnia 10/28/18 08:30 11/04/18 08:29 Meghana Murillo MD Oct 30, 2018 12:02
[2018-10-30] MEDS ORDERED: UNASYN 3 GM VIAL3 GM IVPB (12:09)
--- NOTE | 2018-10-30 13:51 | General Progress Note ---
Assessment/Plan Problem List: (1) Congestive heart failure (CHF) ICD Codes: I50.9 - Heart failure, unspecified SNOMED: 06917772 (2) Anemia ICD Codes: D64.9 - Anemia, unspecified SNOMED: 460576126 Qualifiers: Qualified Codes: D64.9 - Anemia, unspecified (3) Hypertension ICD Codes: I10 - Essential (primary) hypertension SNOMED: 68573516 (4) Morbid obesity ICD Codes: E66.01 - Morbid (severe) obesity due to excess calories SNOMED: 980762623, 83110803025775 (5) End stage renal disease on dialysis ICD Codes: N18.6 - End stage renal failure on dialysis; Z99.2 - Dependence on renal dialysis SNOMED: 278432160 (6) Open wound of right great toe ICD Codes: S91.101A - Unspecified open wound of right great toe without damage to nail, initial encounter SNOMED: 813106626 Status: stable, progressing Assessment/Plan wound care ot pt diet dialysis heme f/u podiatry eval dc to snf if clear Subjective Constitutional: Reports: weakness Respiratory: Reports: shortness of breath Allergies: Coded Allergies: NO KNOWN ALLERGIES (Unverified Allergy, Unknown, 10/15/15) All Systems: reviewed and negative except above Subjective o2nc sl gen pain Objective Last 24 Hour Vital Signs Date Time Temp Pulse Resp B/P (MAP) Pulse Ox O2 Delivery O2 Flow Rate FiO2 10/30/18 12:00 98.3 72 20 164/130 (141) 99 70 10/30/18 12:00 66 10/30/18 09:00 Nasal Cannula 2.0 10/30/18 08:37 57 148/74 10/30/18 08:27 Nasal Cannula 2.0 28 10/30/18 08:27 57 18 Nasal Cannula 2.0 28 10/30/18 08:27 98 2.0 28 10/30/18 08:00 98.1 70 20 148/74 (98) 98 70 10/30/18 08:00 71 10/30/18 04:00 97.8 60 19 126/75 (92) 100 60 10/30/18 03:32 58 10/30/18 00:00 98.0 65 19 128/59 (82) 99 65 10/29/18 22:18 99 Nasal Cannula 2.0 28 10/29/18 22:17 49 20 Nasal Cannula 2.0 28 10/29/18 22:17 Nasal Cannula 2.0 28 10/29/18 21:03 40 10/29/18 21:00 Nasal Cannula 2.0 10/29/18 20:00 97.3 62 19 120/61 (80) 96 62 10/29/18 16:00 96.8 53 18 127/83 (98) 100 53 10/29/18 15:28 41 Intake and Output 10/29/18 10/30/18 19:00 07:00 Intake Total 390 ml 0 ml Balance 390 ml 0 ml Intake Oral 390 ml 0 ml Laboratory Tests 10/30/18 08:20: White Blood Count 9.5, Red Blood Count 2.70L, Hemoglobin 6.4*L, Hematocrit 21.4L , Mean Corpuscular Volume 79L, Mean Corpuscular Hemoglobin 23.8L, Mean Corpuscular Hemoglobin Concent 30.0L, Red Cell Distribution Width 20.6H, Platelet Count 272, Mean Platelet Volume 6.6, Neutrophils (%) (Auto) , Lymphocytes (%) (Auto) , Monocytes (%) (Auto) , Eosinophils (%) (Auto) , Basophils (%) (Auto) , Differential Total Cells Counted 100, Neutrophils % ( Manual) 66, Lymphocytes % (Manual) 10L, Monocytes % (Manual) 8, Eosinophils % ( Manual) 15H, Basophils % (Manual) 1, Band Neutrophils 0, Nucleated Red Blood Cells 5, Platelet Estimate Adequate, Platelet Morphology Normal, Hypochromasia 4 +, Anisocytosis 2+, Microcytosis 1+, Sodium Level 133L, Potassium Level 5.2H, Chloride Level 98, Carbon Dioxide Level 23, Anion Gap 12, Blood Urea Nitrogen 55H, Creatinine 8.1H, Estimat Glomerular Filtration Rate 6.1, Glucose Level 114H , Calcium Level 8.6 10/30/18 10:00: Random Vancomycin Level 16.2 Height (Feet): 5 Height (Inches): 5.00 Weight (Pounds): 334 General Appearance: lethargic EENT: normal ENT inspection Neck: normal alignment Cardiovascular: normal peripheral pulses, normal rate, regular rhythm Respiratory/Chest: chest wall non-tender, decreased breath sounds Abdomen: normal bowel sounds, non tender, soft Extremities: normal inspection Edema: no edema noted Arm (L), no edema noted Arm (R), no edema noted Leg (L), no edema noted Leg (R), no edema noted Pedal (L), no edema noted Pedal (R), no edema noted Generalized Neurologic: motor weakness Skin: normal pigmentation, warm/dry Objective right toe dressing c and d Roderick Henning DO Oct 30, 2018 13:51
--- NOTE | 2018-10-30 13:56 | Infectious Diseases Prog Note ---
Assessment/Plan Assessment/Plan Abx: Ceftriaxone x1 10/22 Assessment: R foot blisters/cellulitis -10/29 sp bedsie I+D; wound cx p -10/25 s/p bedsdie I+D; wound cx ? sent Gram positive bacteremia- real vs contaminant- r/o line infection- suspect these are all contaminants -10/25 BCx NTD (peripheral) -10/22 Bcx 1/4 CONS, 1/4 diphteroids; 10/24 2/4 S, mitis oralis (source? periheral or cental line) -2d Echo:No discrete vegetations seen, however SBE may not be excluded by transthoracic 2-D echo. Consider CLAY if clinically indicated. Afebrile NO Leukocytosis Pyuria- no UTI symptoms -u/a wbc tntc, nitneg, leuk +3; ucx Neg Severe anemia Hyperkalemia, SP SOB 2ry to CHF exacerbation -CXR: Cardiomegaly with pulmonary venous congestion -influenza sc neg ESRD on HD DM2 b/l eye blindness CHF, bradycardia 2ry hyperparathyroidism CAD s/p stent AOCD s/p AVG w recent rupture HTN morbid obesity Plan: -Continue empiric IV Vancomycin # 7/10 for GPC bacteremia and cellulitis -Continue Unasyn #7/10 -12/ SP Clindamycin #3 -ok to discharge on above regimen -f/u Repeat 2 sets of Bcx -f/u Bcx from HD line -f/u wound cx -for bone marrow biopsy per heme onc -f/u cx -Monitor CBC/CMP, temperatures -aspiration precautions -wound care -Podiatry f/u Thank you for this consultation. Will continue to follow along with you. Discussed with RN. Subjective Allergies: Coded Allergies: NO KNOWN ALLERGIES (Unverified Allergy, Unknown, 10/15/15) Subjective afebrile no leukocytosis repaet Bcx NTD s/p I+D R foot today, cx sent Objective Vital Signs Last 24 Hour Vital Signs Date Time Temp Pulse Resp B/P (MAP) Pulse Ox O2 Delivery O2 Flow Rate FiO2 10/30/18 12:00 98.3 72 20 164/130 (141) 99 70 10/30/18 12:00 66 10/30/18 09:00 Nasal Cannula 2.0 10/30/18 08:37 57 148/74 10/30/18 08:27 Nasal Cannula 2.0 28 10/30/18 08:27 57 18 Nasal Cannula 2.0 28 10/30/18 08:27 98 2.0 28 10/30/18 08:00 98.1 70 20 148/74 (98) 98 70 10/30/18 08:00 71 10/30/18 04:00 97.8 60 19 126/75 (92) 100 60 10/30/18 03:32 58 10/30/18 00:00 98.0 65 19 128/59 (82) 99 65 10/29/18 22:18 99 Nasal Cannula 2.0 28 10/29/18 22:17 49 20 Nasal Cannula 2.0 28 10/29/18 22:17 Nasal Cannula 2.0 28 10/29/18 21:03 40 10/29/18 21:00 Nasal Cannula 2.0 10/29/18 20:00 97.3 62 19 120/61 (80) 96 62 10/29/18 16:00 96.8 53 18 127/83 (98) 100 53 10/29/18 15:28 41 Height (Feet): 5 Height (Inches): 5.00 Weight (Pounds): 334 Objective GENERAL: The patient awake, alert, in mild distress. HEENT: Extraocular muscles intact. No lymphadenopathy noted. CARDIOVASCULAR: S1 and S2. No rubs or gallops. PULMONARY: Clear to auscultation bilaterally. No rales, rhonchi or wheezes. ABDOMINAL: Obese, nondistended and nontender. EXTREMITIES: A 2+ pitting edema. R foot blisters with surrounding cellulitis Microbiology Date/Time Source Procedure Growth Status 10/29/18 11:50 Body Fluid Other Gram Stain - Final Resulted 10/29/18 11:50 Body Fluid Other Aerobic Culture - Preliminary Resulted Laboratory Tests Test 10/30/18 08:20 10/30/18 10:00 White Blood Count 9.5 K/UL (4.8-10.8) Red Blood Count 2.70 M/UL (4.20-5.40) L Hemoglobin 6.4 G/DL (12.0-16.0) *L Hematocrit 21.4 % (37.0-47.0) L Mean Corpuscular Volume 79 FL (80-99) L Mean Corpuscular Hemoglobin 23.8 PG (27.0-31.0) L Mean Corpuscular Hemoglobin Concent 30.0 G/DL (32.0-36.0) L Red Cell Distribution Width 20.6 % (11.6-14.8) H Platelet Count 272 K/UL (150-450) Mean Platelet Volume 6.6 FL (6.5-10.1) Neutrophils (%) (Auto) % (45.0-75.0) Lymphocytes (%) (Auto) % (20.0-45.0) Monocytes (%) (Auto) % (1.0-10.0) Eosinophils (%) (Auto) % (0.0-3.0) Basophils (%) (Auto) % (0.0-2.0) Differential Total Cells Counted 100 Neutrophils % (Manual) 66 % (45-75) Lymphocytes % (Manual) 10 % (20-45) L Monocytes % (Manual) 8 % (1-10) Eosinophils % (Manual) 15 % (0-3) H Basophils % (Manual) 1 % (0-2) Band Neutrophils 0 % (0-8) Nucleated Red Blood Cells 5 /100 WBC Platelet Estimate Adequate Platelet Morphology Normal Hypochromasia 4+ Anisocytosis 2+ Microcytosis 1+ Sodium Level 133 MMOL/L (136-145) L Potassium Level 5.2 MMOL/L (3.5-5.1) H Chloride Level 98 MMOL/L (98-107) Carbon Dioxide Level 23 MMOL/L (21-32) Anion Gap 12 mmol/L (5-15) Blood Urea Nitrogen 55 mg/dL (7-18) H Creatinine 8.1 MG/DL (0.55-1.30) H Estimat Glomerular Filtration Rate 6.1 mL/min (>60) Glucose Level 114 MG/DL (74-106) H Calcium Level 8.6 MG/DL (8.5-10.1) Random Vancomycin Level 16.2 ug/mL Current Medications Medications (Trade) Dose Ordered Sig/Josi Route PRN Reason Start Time Stop Time Status Last Admin Dose Admin Acetaminophen (Tylenol) 650 mg Q4H PRN ORAL fever 10/22/18 13:28 11/21/18 13:27 Acetaminophen/ Hydrocodone Bitart ([place] 5/325) 1 tab Q6H PRN ORAL For Pain 10/27/18 18:00 11/03/18 17:59 10/30/18 08:55 Albuterol/ Ipratropium (Albuterol/ Ipratropium) 3 ml Q6H PRN HHN dyspnea 10/26/18 12:33 10/31/18 12:32 Allopurinol (Zyloprim) 100 mg DAILY ORAL 10/23/18 09:00 11/22/18 08:59 10/30/18 08:36 Amlodipine Besylate (Norvasc) 10 mg DAILY ORAL 10/24/18 09:00 11/23/18 08:59 10/30/18 08:37 Ampicillin Sodium/ Sulbactam Sodium 3 gm/Sodium Chloride 110 ml @ 220 mls/hr Q24H IVPB 10/24/18 18:00 10/31/18 17:59 10/29/18 18:20 Atorvastatin Calcium (Lipitor) 20 mg BEDTIME ORAL 10/28/18 21:00 11/21/18 20:59 10/29/18 21:31 Calcium Acetate (Phoslo) 667 mg DAILY ORAL 10/23/18 09:00 11/22/18 08:59 10/30/18 08:37 Dextrose (Dextrose 50%) 25 ml Q30M PRN IV Hypoglycemia 10/22/18 13:45 11/21/18 13:30 Dextrose (Dextrose 50%) 50 ml Q30M PRN IV hypoglycemia 10/22/18 13:45 11/21/18 13:44 10/23/18 11:41 Diphenhydramine HCl (Benadryl) 25 mg Q8H PRN ORAL Itching 10/25/18 06:45 11/24/18 06:44 10/30/18 08:54 Epoetin Jose De Jesus (Procrit (for ESRD on dialysis)) 10,000 units SUN-SUN-SUN SUBQ 10/23/18 21:00 11/22/18 20:59 10/28/18 20:33 Gabapentin (Neurontin) 400 mg BID ORAL 10/24/18 18:00 11/23/18 17:59 10/30/18 08:37 Insulin Aspart (NovoLOG) BEFORE MEALS AND HS SUBQ 10/22/18 16:30 11/21/18 16:29 10/30/18 11:39 Morphine Sulfate (Morphine Sulfate) 1 mg Q4H PRN IVP For Pain 10/28/18 08:30 11/04/18 08:29 10/28/18 18:04 Ondansetron HCl (Zofran) 4 mg Q6H PRN IVP Nausea & Vomiting 10/22/18 13:30 11/21/18 13:29 10/26/18 05:37 Polyethylene Glycol (Miralax) 17 gm DAILY PRN ORAL Constipation 10/27/18 12:39 11/26/18 12:38 10/27/18 18:19 Sevelamer Carbonate (Renvela) 800 mg THREE TIMES A DAY ORAL 10/22/18 18:00 11/21/18 17:59 10/30/18 12:18 Vancomycin HCl (Vanco rx to dose) 1 ea DAILY PRN MISC Per rx protocol 10/24/18 11:15 11/23/18 11:14 Vancomycin HCl 1 gm/Dextrose 275 ml @ 183.708 mls/hr ONCE IVPB 10/30/18 12:00 10/30/18 14:00 10/30/18 11:59 Zolpidem Tartrate (Ambien) 5 mg HSPRN PRN ORAL Insomnia 10/28/18 08:30 11/04/18 08:29 Susi Vanegas M.D. Oct 30, 2018 13:56
[2018-10-30 15:17] VITALS: BP 144/75
--- NOTE | 2018-10-31 10:16 | Discharge Summary ---
Discharge Summary Discharge Summary _ DATE OF ADMISSION: 10/22/2018 DATE OF DISCHARGE: 10/30/2018 CONSULTANTS: Dr. Meghana Jorgensen [facility] HOSPITAL COURSE: Patient is a 63-year-old female, who lives at home, presented to [place] ER due to increased shortness of breath for 2 days. She has history of end-stage renal disease and is on dialysis. She has a vascular access on the left chest. She was recently hospitalized at [facility] for several weeks and was transferred to inpatient rehabilitation for which she was just discharged on 2017. She presented back to ED complaining of shortness of breath and fatigue. She has medical history significant for diabetes, hypertension, secondary hyperparathyroidism, morbid obesity, anemia and renal failure. On evaluation at ED, vital signs were stable. Blood work did not show any leukocytoses, hemoglobin was noted to be low at 6.5, hematocrit 21.7. Sodium was 132, potassium 6.2 BUN was 56, creatinine 9.4. BNP was 13,274, troponin negative. She had a urinalysis that showed 3+ leukocyte esterase, too many to count WBC, 5-10 RBC, S1 ketone, 4+ protein, and 1+ blood. Chest x-ray showed cardiomegaly with pulmonary vascular congestion. He was given empiric treatment of Rocephin in for urine infection. She was given Kayexalate, sodium bicarbonate, glucose and insulin, calcium gluconate. Patient will eventually need to undergo hemodialysis. She was admitted for evaluation anemia, hyperkalemia, shortness of breath and urine infection. She was given respiratory treatment. Blood glucose was monitored. She was placed on insulin sliding scale. Patient was anemic, however is a [employer], refused any blood products. She had agreed to epogen. Ferritin level was elevated. She was seen by GI. Patient had recent colonoscopy at [facility] which was unremarkable. Due to severe anemia, patient was recommended upper endoscopy. She was given inpatient hemodialysis. Patient has history of bradycardia. She was admitted to telemetry and heart rate was in the 40s. She has history of coronary artery disease with prior stent placement. She was given Lipitor and she has been off beta hardik and off aspirin for severe anemia. She had an echocardiogram that showed left ventricular ejection fraction of 55% with right ventricular volume and pressure overload. She had moderate pulmonary hypertension. Blood pressure was elevated. She was started on Norvasc 10 mg daily. Blood culture showed growth of gram-positive bacteremia, 11/29. She was started empirically on IV vancomycin and repeat blood culture was ordered. On 10/24/2018, she underwent upper endoscopy. There was no evidence of active upper GI bleed. There was evidence of diffuse gastritis. Biopsy result was negative for H. pylori. She was noted to have a bullae on the right foot and resolved bullae on the left foot. Senior Solutions Engineer was consulted. On 10/08/2018, a bedside I&D was performed on the right foot bullae without complication. Wound care was rendered. She was started on Unasyn and clindamycin by ID for strep coverage for cellulitis. Repeat blood culture obtained showed Streptococcus, suspect contaminant. Clindamycin was discontinued. She was given Unasyn and vancomycin. Echocardiogram did not show any discrete vegetations. On 10/29/2018, she again underwent incision and drainage of the right foot bulla. She had recurrent nonsustained V. tach while on telemetry. Nuclear stress test done recently at [facility] on 10/25/2018 showed no ischemia. Recommend to continue off beta blockers, Cardizem, verapamil or clonidine. She was eventually discharged back home. FINAL DIAGNOSES: Acute respiratory failure secondary to fluid overload Right foot blister/cellulitis status post bedside I and D on 10/25/2018 and 02/2018 Gram-positive bacteremia, suspect contaminant Pyuria with no UTI symptoms Severe anemia of chronic kidney disease status post upper endoscopy 10/24/2018 Hyperkalemia End-stage renal disease on hemodialysis Diabetes mellitus type 2 Bilateral eye blindness Secondary hyperparathyroidism Coronary artery artery disease status post stent placement Hypertension Morbid obesity Acute on chronic CHF with diastolic dysfunction Hypertensive heart disease Recurrent nonsustained V. tach Bradycardia, asymptomatic Hyperlipidemia DISPOSITION: Patient was discharged home with home health. DISCHARGE MEDICATIONS: Refer to Discharge Medication List. Continue antibiotics 5 more days. DISCHARGE INSTRUCTIONS: Follow up in a week. I have been assigned to dictate discharge summary on this account, and I was not involved in the patient's management. Cece Scott NP Oct 31, 2018 10:16
== END 2018-10-30 15:30 | DRG 291 ==
LOC: EDBD 10:22 → EDBEDREQ 11:05 → EMR 11:20 → 2E 11:38 → EDBEDREQ 11:54
PROC: 5A1D70Z Performance of Urinary Filtration, Intermittent, Less than 6 Hours Per Day (ICD-10-PCS; principal; 2018-10-22)
PROC: 0DB78ZX Excision of Stomach, Pylorus, Via Natural or Artificial Opening Endoscopic, Diagnostic (ICD-10-PCS; 2018-10-24)
PROC: 0J9N3ZZ Drainage of Right Lower Leg Subcutaneous Tissue and Fascia, Percutaneous Approach (ICD-10-PCS; 2018-10-25)
PROC: 0J9N3ZZ Drainage of Right Lower Leg Subcutaneous Tissue and Fascia, Percutaneous Approach (ICD-10-PCS; 2018-10-29)
DX: I13.2 Hypertensive heart and chronic kidney disease with heart failure and with stage 5 chronic kidney disease, or end stage renal disease (principal); N18.6 End stage renal disease; J96.00 Acute respiratory failure, unspecified whether with hypoxia or hypercapnia; I50.33 Acute on chronic diastolic (congestive) heart failure; K62.5 Hemorrhage of anus and rectum; Z68.43 Body mass index [BMI] 50.0-59.9, adult; N25.81 Secondary hyperparathyroidism of renal origin; I47.2 Ventricular tachycardia; L03.115 Cellulitis of right lower limb; D64.9 Anemia, unspecified; E66.01 Morbid (severe) obesity due to excess calories; D50.9 Iron deficiency anemia, unspecified; E11.22 Type 2 diabetes mellitus with diabetic chronic kidney disease; E11.65 Type 2 diabetes mellitus with hyperglycemia; D63.1 Anemia in chronic kidney disease; Z99.2 Dependence on renal dialysis; E11.40 Type 2 diabetes mellitus with diabetic neuropathy, unspecified; E87.5 Hyperkalemia; I25.10 Atherosclerotic heart disease of native coronary artery without angina pectoris; Z95.5 Presence of coronary angioplasty implant and graft; I95.9 Hypotension, unspecified; R00.1 Bradycardia, unspecified; R23.8 Other skin changes; K29.70 Gastritis, unspecified, without bleeding
CPT/HCPCS: 36415; 71045; 80048; 80053; 80061; 80202; 81003; 82270; 82378; 82550; 82607; 82728; 82746; 82962; 83036; 83540; 83550; 83605; 83735; 83880; 84100; 84439; 84443; 84484; 85007; 85025; 85044; 85610; 85730; 86710; 86900; 86901; 87040; 87070; 87075; 87081; 87086; 87181; 87205; 93005; 93017; 93306; 93970; 94003; 94150; 94640; 94664; 94760; 96365; 96375; 97803; 99285; J1815; J2405

== ENCOUNTER 2018-11-06 02:06 | Inpatient (IN) | payer MEDICARE, OTHER ==
[~2018-11-06] VITALS: Ht 165.1 cm; Wt 150.1 kg
[2018-11-06] VITALS (7 sets, daily range): BP systolic 108–140; BP diastolic 58–88
[~2018-11-06 02:06] MED LIST changes: +DAPTOMYCIN350 MG IV; +UNASYN 3 GM VIAL3 GM IJ; +UNASYN 3 GM VIAL3 GM IVPB
[2018-11-06] MEDS ORDERED: Morphine Sulfate 4mg/ml Inj (IV/IM USE ONLY) IVP ONE (02:15)
--- NOTE | 2018-11-06 02:21 | Emergency Room Report ---
History of Present Illness General Chief Complaint: Back Pain-No Injury Source: EMS Present Illness HPI Patient is a 63-year-old female brought in by EMS after increased low back pain. Patient prior history of end-stage renal disease and is on dialysis. Patient had recently been discharged from the hospital to a nursing facility. The patient subsequently signed out against medical advise from his nursing facility. Patient states that she had been having increased pain. The patient reported previously noted to be due to Yarsanism. The prior laboratory testing was notable for anemia. Allergies: Coded Allergies: NO KNOWN ALLERGIES (Unverified Allergy, Unknown, 10/15/15) Patient History Past Medical History: see triage record Reviewed Nursing Documentation: PMH: Agreed; PSxH: Agreed Nursing Documentation-PMH Hx Hypertension: Yes Hx Pacemaker: No Hx Asthma: Yes Hx COPD: Yes Hx Diabetes: Yes - Blind Hx Cancer: No Hx Gastrointestinal Problems: Yes Hx Dialysis: Yes - Hx Neurological Problems: No Hx Peripheral Neuropathy: Yes - secondary to DM Hx Tremors: Yes Hx Vertigo: Yes Hx Dizziness: Yes Hx Syncope: Yes Hx Headaches: Yes Hx Weakness: Yes Hx Fatigue: Yes Review of Systems All Other Systems: limited - by poor historian Physical Exam Vital Signs Date Time Temp Pulse Resp B/P (MAP) Pulse Ox O2 Delivery O2 Flow Rate FiO2 11/06/18 02:07 Room Air General Appearance: alert, GCS 15, obese, Chronically Ill ENT: normal ENT inspection, other - slow speech Neck: limited range of motion Respiratory: respiratory distress Cardiovascular #1: edema Gastrointestinal: normal inspection, soft Musculoskeletal: other - ulcer to right foot Neurologic: alert, oriented x3, responsive, motor weakness Psychiatric: normal inspection Skin: other - ulcer to right leg Medical Decision Making Diagnostic Impression: Primary Impression: Pancreatitis Additional Impressions: Anemia Accelerated hypertension ER Course The patient is a for increased back pain. Differential diagnosis included was not limited to myocardial infarction, GI bleed, ulcer, arthritis among others.Because of complexity of patient's case laboratory testing and imaging studies were ordered.Patient was noted to have the prior history of end-stage renal disease. The patient was noted be mildly hyperkalemic. The patient was also noted to have increased pain which is likely related the pancreatitis and the patient's lipase is noted be markedly elevated. The patient was noted to have some improvement previous anemia.Dr. Roderick Henning was contacted for inpatient management. Laboratory Tests Test 11/07/18 05:08 11/08/18 05:50 White Blood Count 9.6 K/UL (4.8-10.8) 9.3 K/UL (4.8-10.8) Red Blood Count 2.78 M/UL (4.20-5.40) L 2.92 M/UL (4.20-5.40) L Hemoglobin 6.6 G/DL (12.0-16.0) *L 7.1 G/DL (12.0-16.0) L Hematocrit 22.9 % (37.0-47.0) L 24.0 % (37.0-47.0) L Mean Corpuscular Volume 82 FL (80-99) 82 FL (80-99) Mean Corpuscular Hemoglobin 23.9 PG (27.0-31.0) L 24.2 PG (27.0-31.0) L Mean Corpuscular Hemoglobin Concent 29.0 G/DL (32.0-36.0) L 29.4 G/DL (32.0-36.0) L Red Cell Distribution Width 21.4 % (11.6-14.8) H 21.8 % (11.6-14.8) H Platelet Count 247 K/UL (150-450) 220 K/UL (150-450) Mean Platelet Volume 6.9 FL (6.5-10.1) 6.9 FL (6.5-10.1) Neutrophils (%) (Auto) % (45.0-75.0) % (45.0-75.0) Lymphocytes (%) (Auto) % (20.0-45.0) % (20.0-45.0) Monocytes (%) (Auto) % (1.0-10.0) % (1.0-10.0) Eosinophils (%) (Auto) % (0.0-3.0) % (0.0-3.0) Basophils (%) (Auto) % (0.0-2.0) % (0.0-2.0) Differential Total Cells Counted 100 100 Neutrophils % (Manual) 61 % (45-75) 48 % (45-75) Lymphocytes % (Manual) 21 % (20-45) 17 % (20-45) L Monocytes % (Manual) 8 % (1-10) 12 % (1-10) H Eosinophils % (Manual) 10 % (0-3) H 22 % (0-3) H Basophils % (Manual) 0 % (0-2) 1 % (0-2) Band Neutrophils 0 % (0-8) 0 % (0-8) Nucleated Red Blood Cells 3 /100 WBC 2 /100 WBC Platelet Estimate Adequate Adequate Platelet Morphology Normal Normal Polychromasia 1+ Hypochromasia 2+ 3+ Anisocytosis 3+ 3+ Tear Drop Cells 1+ Sodium Level 137 MMOL/L (136-145) 136 MMOL/L (136-145) Potassium Level 5.5 MMOL/L (3.5-5.1) H 5.3 MMOL/L (3.5-5.1) H Chloride Level 101 MMOL/L (98-107) 100 MMOL/L (98-107) Carbon Dioxide Level 22 MMOL/L (21-32) 24 MMOL/L (21-32) Anion Gap 14 mmol/L (5-15) 12 mmol/L (5-15) Blood Urea Nitrogen 68 mg/dL (7-18) H 62 mg/dL (7-18) H Creatinine 8.9 MG/DL (0.55-1.30) H 8.6 MG/DL (0.55-1.30) H Estimate Glomerular Filtration Rate 5.5 mL/min (>60) 5.7 mL/min (>60) Glucose Level 112 MG/DL (74-106) #H 101 MG/DL (74-106) Hemoglobin A1c 6.3 % (4.3-6.0) H Uric Acid 6.0 MG/DL (2.6-7.2) Calcium Level 8.5 MG/DL (8.5-10.1) 8.9 MG/DL (8.5-10.1) Phosphorus Level 6.6 MG/DL (2.5-4.9) H 5.9 MG/DL (2.5-4.9) H Magnesium Level 2.7 MG/DL (1.8-2.4) H 2.6 MG/DL (1.8-2.4) H Total Bilirubin 0.7 MG/DL (0.2-1.0) 0.7 MG/DL (0.2-1.0) Aspartate Amino Transferase (AST) 27 U/L (15-37) 25 U/L (15-37) Alanine Aminotransferase (ALT) 25 U/L (12-78) 23 U/L (12-78) Alkaline Phosphatase 296 U/L (46-116) H 293 U/L (46-116) H Total Protein 8.7 G/DL (6.4-8.2) H 8.7 G/DL (6.4-8.2) H Albumin 3.8 G/DL (3.4-5.0) 3.8 G/DL (3.4-5.0) Globulin 4.9 g/dL 4.9 g/dL Albumin/Globulin Ratio 0.8 (1.0-2.7) L 0.8 (1.0-2.7) L Triglycerides Level 107 MG/DL (30-150) Cholesterol Level 63 MG/DL (< 200) LDL Cholesterol 24 mg/dL (<100) HDL Cholesterol 24 MG/DL (40-60) L Cholesterol/HDL Ratio 2.6 (3.3-4.4) L Lipase 1086 U/L (73-393) H 1262 U/L (73-393) H Thyroid Stimulating Hormone (TSH) 1.341 uiU/mL (0.358-3.740) Last Vital Signs Date Time Temp Pulse Resp B/P (MAP) Pulse Ox O2 Delivery O2 Flow Rate FiO2 11/06/18 02:07 Room Air Status: unchanged Disposition: ADMITTED INPATIENT Condition: Tong Beckwith MD Nov 06, 2018 02:21
[2018-11-06] MEDS ORDERED: UNOBMED (02:31)
[2018-11-06 03:07] LABS: HEMATOCRIT 21.8 % (37.0-47.0); MEAN CORPUSCULAR VOLUME 80 FL (80-99); PLATELET COUNT 240 K/UL (150-450); RED BLOOD COUNT 2.72 M/UL (4.20-5.40); RED CELL DISTRIBUTION WIDTH 21.1 % (11.6-14.8); WHITE BLOOD COUNT 8.9 K/UL (4.8-10.8)
[2018-11-06 03:16] LABS: ANION GAP 12 mmol/L (5-15); BLOOD UREA NITROGEN 58 mg/dL (7-18); CALCIUM 8.5 MG/DL (8.5-10.1); CARBON DIOXIDE 24 MMOL/L (21-32); CHLORIDE 103 MMOL/L (98-107); CREATININE 7.6 MG/DL (0.55-1.30); POTASSIUM 5.3 MMOL/L (3.5-5.1); SODIUM 139 MMOL/L (136-145)
[2018-11-06 03:22] LABS: ALANINE AMINOTRANSFERASE 21 U/L (12-78); ALBUMIN 3.8 G/DL (3.4-5.0); ALBUMIN/GLOBULIN RATIO 0.8 (1.0-2.7); ALKALINE PHOSPHATASE 318 U/L (46-116); ASPARTATE AMINO TRANSFERASE 44 U/L (15-37); BILIRUBIN,TOTAL 0.9 MG/DL (0.2-1.0); CREATINE KINASE 211 U/L (26-308)
[2018-11-06 03:23] LABS: HEMOGLOBIN 6.6 G/DL (12.0-16.0)
[2018-11-06] MEDS ORDERED: Zolpidem 5mg tab ORAL PRN (06:15)
[2018-11-06] MEDS ORDERED: Miralax 17gm pkt ORAL PRN (06:15)
[2018-11-06] MEDS ORDERED: Albuterol ud Inhalation HHN PRN (06:15)
[2018-11-06] MEDS ORDERED: Albuterol/Ipratropium 3ml neb HHN PRN (06:15)
[2018-11-06] MEDS ORDERED: Morphine Sulfate 2mg/ml Inj IVP PRN (06:15)
[2018-11-06] MEDS ORDERED: Mylanta II UD 30ml ORAL PRN (06:15)
--- NOTE | 2018-11-06 07:12 | Consultation ---
History of Present Illness General Chief Complaint: Back Pain-No Injury Present Illness Allergies: Coded Allergies: NO KNOWN ALLERGIES (Unverified Allergy, Unknown, 10/15/15) Medication History Scheduled Acetaminophen* (Acetaminophen 325MG Tablet*), 650 MG ORAL Q6H, (Reported) Allopurinol* (Zyloprim*), 100 MG ORAL DAILY, (Reported) Amlodipine Besylate (Norvasc), 2.5 MG ORAL DAILY, (Reported) Amlodipine Besylate* (Amlodipine Besylate*), 10 MG ORAL DAILY, (Reported) Ampicillin Sodium/Sulbactam Na (Unasyn 3 Gm Vial), 3 GM IJ DAILY, (Reported) Ampicillin Sodium/Sulbactam Na (Unasyn 3 Gm Vial), 3 GM IVPB DAILY, (Reported) Ascorbic Acid* (Ascorbic Acid*), 500 MG ORAL DAILY, (Reported) Aspirin Ec* (Aspirin Ec*), 81 MG ORAL DAILY, (Reported) Atorvastatin Calcium* (Atorvastatin Calcium*), 20 MG ORAL BEDTIME, (Reported) Carvedilol (Coreg), 3.125 MG ORAL EVERY 12 HOURS, (Reported) Carvedilol* (Carvedilol*), 3.125 MG ORAL EVERY 12 HOURS, (Reported) Daptomycin (DAPTOmycin), 6 MG IV q48hrs, (Reported) Docusate Sodium (Dok), 100 MG PO BID, (Reported) Ferrous Sulfate* (Ferrous Sulfate*), 325 MG ORAL DAILY, (Reported) Furosemide* (Lasix*), 20 MG ORAL DAILY, (Reported) Gabapentin* (Gabapentin*), 400 MG ORAL TWICE A DAY, (Reported) Glimepiride* (Amaryl*), 4 MG ORAL BEFORE BREAKFAST Heparin Sod (Porcine) (Heparin Sodium*), 5,000 UNITS SUBQ EVERY 12 HOURS, ( Reported) Hydralazine HCl (Hydralazine HCl), 10 MG ORAL EVERY 6 HOURS, (Reported) Hydralazine Hcl* (Hydralazine Hcl*), 50 MG ORAL EVERY 8 HOURS, (Reported) Hydrocodone Bit/Acetaminophen 5-325* ([place] 5-325*), 1 TAB ORAL Q8HR, (Reported) Insulin Aspart (Novolog Flexpen), 1 UNITS SUBQ AC+HS, (Reported) Insulin Detemir (Levemir Flexpen), 10 UNITS SUBQ BEDTIME Isosorbide Dinitrate (Isosorbide Dinitrate*), 30 MG ORAL BID, (Reported) Lifitegrast (Xiidra), 1 EACH OP BID, (Reported) Lisinopril (Lisinopril*), 5 MG ORAL DAILY, (Reported) Losartan Potassium* (Losartan Potassium*), 50 MG ORAL DAILY, (Reported) Mupirocin Nasal (Bactroban Nasal), 1 APPLIC NASAL TID, (Reported) Nitrofurantoin Monohyd/M-Cryst* (Macrobid 100 Mg*), 100 MG ORAL EVERY 12 HOURS Pantoprazole* (Pantoprazole*), 40 MG ORAL DAILY, (Reported) Ranitidine Hcl* (Zantac*), 150 MG ORAL DAILY, (Reported) Sevelamer Carbonate (Renvela), 800 MG ORAL THREE TIMES A DAY, (Reported) Scheduled PRN Acetaminophen (Tylenol), 650 MG ORAL Q4HR PRN for Mild Pain/Temp > 100.5, ( Reported) Al Hydroxide/mg Hydroxide (Mag-Al Plus Suspension), 30 ML PO Q6HR PRN for indigestion, (Reported) Albuterol Sulfate* (Albuterol Sulfate Hhn*), 3 ML INH Q6H PRN for Shortness of Breath, (Reported) Clonidine Hcl* (Catapres*), 0.1 MG ORAL EVERY 4 HOURS PRN for For High Blood Pressure, (Reported) Diphenhydramine Hcl* (Diphenhydramine Hcl*), 25 MG ORAL Q6H PRN for Itching, ( Reported) Insulin Regular, Human* (Novolin R*), 0 SUBQ AC+HS PRN for Sliding Scale, ( Reported) Nitroglycerin (Nitrostat), 0.4 MG SL Q5M X3 DOSES PRN for CHEST PAIN, (Reported) Ondansetron (Zofran), 4 MG ORAL Q6H PRN for Nausea & Vomiting, (Reported) Polyethylene Glycol 3350* (Miralax*), 17 GM ORAL DAILY PRN for Constipation, ( Reported) Temazepam* (Restoril*), 15 MG ORAL BEDTIME PRN for Insomnia, (Reported) Tramadol Hcl* (Ultram*), 50 MG ORAL Q6H PRN for For Pain, (Reported) Zolpidem Tartrate* (Zolpidem Tartrate*), 5 MG ORAL BEDTIME PRN for Insomnia, ( Reported) Miscellaneous Medications Calcium Acetate (Calcium Acetate), 667 MG PO, (Reported) Folic Acid/Vitamin B Comp W-C (Dialyvite 800 Tablet), 0.8 MG PO, (Reported) Insulin Human Lispro (Humalog), 0 SUBQ, (Reported) Lactulose (Lactulose*), 15 ML ORAL, (Reported) Unable to Obtain Medications (Unable To Obtain Meds), (Reported) Patient History Healthcare decision maker Resuscitation status Advanced Directive on File Physical Exam Last 24 Hour Vital Signs Date Time Temp Pulse Resp B/P (MAP) Pulse Ox O2 Delivery O2 Flow Rate FiO2 11/06/18 05:42 98.0 73 20 128/84 100 Nasal Cannula 2.0 11/06/18 02:14 98.3 56 20 109/58 97 Nasal Cannula 11/06/18 02:07 97.9 6 20 109/40 96 Room Air Intake and Output 11/05/18 11/06/18 19:00 07:00 Intake Total 100 ml Balance 100 ml Intake Oral 100 ml Laboratory Tests Test 11/06/18 02:55 White Blood Count 8.9 K/UL (4.8-10.8) Red Blood Count 2.72 M/UL (4.20-5.40) L Hemoglobin 6.6 G/DL (12.0-16.0) *L Hematocrit 21.8 % (37.0-47.0) L Mean Corpuscular Volume 80 FL (80-99) Mean Corpuscular Hemoglobin 24.3 PG (27.0-31.0) L Mean Corpuscular Hemoglobin Concent 30.3 G/DL (32.0-36.0) L Red Cell Distribution Width 21.1 % (11.6-14.8) H Platelet Count 240 K/UL (150-450) Mean Platelet Volume 6.9 FL (6.5-10.1) Neutrophils (%) (Auto) % (45.0-75.0) Lymphocytes (%) (Auto) % (20.0-45.0) Monocytes (%) (Auto) % (1.0-10.0) Eosinophils (%) (Auto) % (0.0-3.0) Basophils (%) (Auto) % (0.0-2.0) Sodium Level 139 MMOL/L (136-145) Potassium Level 5.3 MMOL/L (3.5-5.1) H Chloride Level 103 MMOL/L (98-107) Carbon Dioxide Level 24 MMOL/L (21-32) Anion Gap 12 mmol/L (5-15) Blood Urea Nitrogen 58 mg/dL (7-18) H Creatinine 7.6 MG/DL (0.55-1.30) H Estimat Glomerular Filtration Rate 6.5 mL/min (>60) Glucose Level 217 MG/DL (74-106) H Calcium Level 8.5 MG/DL (8.5-10.1) Total Bilirubin 0.9 MG/DL (0.2-1.0) Aspartate Amino Transf (AST/SGOT) 44 U/L (15-37) H Alanine Aminotransferase (ALT/SGPT) 21 U/L (12-78) Alkaline Phosphatase 318 U/L (46-116) H Total Creatine Kinase 211 U/L (26-308) Troponin I 0.005 ng/mL (0.000-0.056) Total Protein 8.3 G/DL (6.4-8.2) H Albumin 3.8 G/DL (3.4-5.0) Globulin 4.5 g/dL Albumin/Globulin Ratio 0.8 (1.0-2.7) L Lipase 1404 U/L (73-393) H Microbiology Date/Time Source Procedure Growth Status 11/06/18 04:30 Rectum Received Height (Feet): 5 Height (Inches): 9.00 Weight (Pounds): 323 Medications Current Medications Medications (Trade) Dose Ordered Sig/Josi Route PRN Reason Start Time Stop Time Status Last Admin Dose Admin Acetaminophen (Tylenol) 650 mg Q4H PRN ORAL Mild Pain/Temp > 100.5 11/06/18 06:15 12/06/18 06:14 Al Hydroxide/Mg Hydroxide (Mylanta II) 30 ml Q6H PRN ORAL dyspepsia 11/06/18 06:15 12/06/18 06:14 Albuterol Sulfate (Proventil) 2.5 mg Q6H PRN HHN Shortness of Breath 11/06/18 06:15 11/11/18 06:14 Albuterol/ Ipratropium (Albuterol/ Ipratropium) 3 ml Q6H PRN HHN dyspnea 11/06/18 06:15 11/11/18 06:14 Allopurinol (Zyloprim) 100 mg DAILY ORAL 11/06/18 09:00 12/06/18 08:59 Amlodipine Besylate (Norvasc) 2.5 mg DAILY ORAL 11/06/18 09:00 12/06/18 08:59 Atorvastatin Calcium (Lipitor) 20 mg BEDTIME ORAL 11/06/18 21:00 12/06/18 20:59 Calcium Acetate (Phoslo) 667 mg EVERY 8 HOURS ORAL 11/06/18 14:00 12/06/18 13:59 Carvedilol (Coreg) 3.125 mg EVERY 12 HOURS ORAL 11/06/18 09:00 12/06/18 08:59 Clonidine HCl (Catapres Tab) 0.1 mg Q4H PRN ORAL For High Blood Pressure 11/06/18 06:15 12/06/18 06:14 Dextrose (Dextrose 50%) STAT PRN IV Hypoglycemia 11/06/18 06:15 12/06/18 06:14 Furosemide (Lasix) 100 mg EVERY 8 HOURS PRN IV dyspnea 11/06/18 06:15 12/06/18 06:14 Gabapentin (Neurontin) 400 mg TWICE A DAY ORAL 11/06/18 09:00 12/06/18 08:59 Heparin Sodium (Porcine) (Heparin 5000 units/ml) 5,000 units EVERY 12 HOURS SUBQ 11/06/18 09:00 12/06/18 08:59 Hydralazine HCl (Apresoline) 10 mg EVERY 6 HOURS ORAL 11/06/18 12:00 12/06/18 11:59 Insulin Aspart (NovoLOG) BEFORE MEALS AND HS SUBQ 11/06/18 07:30 12/06/18 07:29 Lisinopril (Zestril) 5 mg DAILY ORAL 11/06/18 09:00 12/06/18 08:59 Morphine Sulfate (Morphine Sulfate) 1 mg Q4H PRN IVP FOR SEVERE PAIN (7-10) 11/06/18 07:15 11/13/18 06:14 Ondansetron HCl (Zofran) 4 mg Q6H PRN IVP Nausea & Vomiting 11/06/18 06:15 12/06/18 06:14 Polyethylene Glycol (Miralax) 17 gm HSPRN PRN ORAL Constipation 11/06/18 06:15 12/06/18 06:14 Sevelamer Carbonate (Renvela) 800 mg THREE TIMES A DAY ORAL 11/06/18 09:00 12/06/18 08:59 Tramadol HCl (Ultram) 50 mg Q6H PRN ORAL FOR MODERATE PAIN (4-6) 11/06/18 06:15 11/13/18 06:14 Zolpidem Tartrate (Ambien) 5 mg HSPRN PRN ORAL Insomnia 11/06/18 06:15 11/13/18 06:14 Assessment/Plan Status Narrative HEMATOLOGY-ONCOLOGY CONSULTATION REFERRING PHYSICIAN: Demetris Squires REASON FOR CONSULT: Anemia DATE OF CONSULT: 11.06.2018 HISTORY OF PRESENT ILLNESS: The patient is a 63-year-old female. Pt is known to me from admission at [facility] and recently here approx 2 weeks ago. The patient had been recently hospitalized at [facility] for the last several weeks and then transferred inpatient rehabilitation for which she was just discharged on 2017. She now returns again feeling short of breath, tired and fatigued with a decreased hgb and is a Zoroastrian. Hematology services consulted for the evaluation of ACD. Prior and current labs have been reviewed. 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 PAST MEDICAL HISTORY: Anemia of chronic kidney disease, end-stage renal disease , secondary hyperparathyroidism, morbid obesity, hypertension. PAST SURGICAL HISTORY: PermCath placement, AV fistula, S/P recent rupture of AV fistula. FAMILY HISTORY: Positive for diabetes and hypertension. PHYSICAL EXAMINATION: VITAL SIGNS: Have been reviewed. GENERAL: The patient awake, alert, in mild distress. HEENT: Extraocular muscles intact. No lymphadenopathy noted. CARDIOVASCULAR: S1 and S2. No rubs or gallops. PULMONARY: Clear to auscultation bilaterally. No rales, rhonchi or wheezes. ABDOMINAL: Obese, nondistended and nontender. EXTREMITIES: A 2+ pitting edema. MEDICATIONS: Current meds have been reviewed LABORATORY AND DIAGNOSTIC DATA: as per emr Radiology: per emr # Anemia of chronic disease due to underlying chronic medical issues, multifactorial. 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 Hx of esrd on hd. --> Trend Hgb remains low at 6.5 --> 6.6 --> Prior anemia w/u has been reviewed. Ferritin >2000 --> No evidence of hemolysis is noted, peripheral smear has been reviewed. --> Hgb goal >7. Transfuse prn. --> EGD 10/24 --> off heparin sq at this time, is on scds --> bone marrow biopsy that can be done as an outpatient. agree with pcp --> EPOGEN since patient is a Zoroastrian # Anemia of chronic kidney disease. --> Jehovah Witness and does not take any blood products --> on epogen, will continue --> would refrain from iv iron, since is overloaded --> b1, b12, folate as outpatient as well # End-stage renal disease on hemodialysis. Nephro is following, appreciate recs. --> The patient is on hemodialysis due to shortness of breath. # Mild hyperkalemia, potassium 6.2 on admission --> Currently remains elevated at 5.2--> improves with HD --> HD 3x a week # Hypertension. Cardiology is following, appreciate recs. --> stress test pending as per cards, most recent test was negative per Dr. Vinson --> Adjust medications as appropriate. # Diabetes mellitus per primary care physician. --> Cont on insulin --> Cont to monitor BS levels # back pain -- consider pain service eval as required --> opiates as needed, imaging to eval : GREATLY APPRECIATE CONSULTATION. Malick Lizama MD Nov 06, 2018 07:11
[2018-11-06] MEDS: NovoLOG Insulin Flexpen SUBQ SCH ×4 (07:30→20:46)
[2018-11-06] MEDS: Lisinopril 2.5mg tab ORAL SCH (09:01)
[2018-11-06] MEDS: Allopurinol 100mg Tab ORAL SCH (09:01)
[2018-11-06] MEDS: Heparin 5000 units/ml inj SUBQ SCH ×2 (09:05→20:46)
--- NOTE | 2018-11-06 11:09 | GI Initial Consult Note ---
History of Present Illness General Date patient seen: Nov 06, 2018 Time patient seen: 13:16 Reason for Hospitalization: Back Pain-No Injury Referring physician: BRIE LAN Reason for Consultation: PANCREATITIS Present Illness HPI Patient is a 63-year-old female brought in by EMS after increased low back pain. Patient prior history of end-stage renal disease and is on dialysis. Patient had recently been discharged from the hospital to a nursing facility. The patient subsequently signed out against medical advise from his nursing facility. Patient states that she had been having increased pain. The patient reported previously noted to be due to Hinduism. The prior laboratory testing was notable for anemia. GI consulted for pancreatitis. Pt seen, awake A&Ox4 NAD c/o of abdominal pain with tenderness at this time. No active s/sx of N/V/D. Patient had recent admission here, noted with severe anemia s/p EGD with unremarkable findings at the time. She presents today with anemia and elevated lipase levels. Patient is a Jehova's witness. Patient had recent colonoscopy performed at [facility]. Home Meds Active Scripts Nitrofurantoin Monohyd/M-Cryst* (MACROBID 100 MG*) 100 Mg Capsule, 100 MG ORAL EVERY 12 HOURS for 7 Days, #13 CAP Prov:KALANI NELSON M.D. 05/08/17 Glimepiride* (AMARYL*) 4 Mg Tablet, 4 MG ORAL BEFORE BREAKFAST, #1 TAB Prov:Cece Scott [employer] JOU[employer]LIST 12/10/15 Insulin Detemir (LEVEMIR FLEXPEN) 100 Units/Ml Pen, 10 UNITS SUBQ BEDTIME, #1 EA Prov:Chastity Velasco PRINT JOURNALIST 11/18/14 Reported Medications Unable to Obtain Medications (UNABLE TO OBTAIN MEDS) 1 Ea Ea 11/06/18 Ampicillin Sodium/Sulbactam Na (UNASYN 3 GM VIAL) 3 Gm Vial, 3 GM IVPB DAILY for 5 Days, VIAL 10/30/18 Daptomycin (DAPTOmycin) 350 Mg Vial, 6 MG IV q48hrs for bacteremia and cellulitis for 5 Days, VIAL 10/29/18 Ampicillin Sodium/Sulbactam Na (UNASYN 3 GM VIAL) 3 Gm Vial, 3 GM IJ DAILY for bacteremia and cellulitis for 5 Days, VIAL 10/29/18 Gabapentin* (GABAPENTIN*) 400 Mg Capsule, 400 MG ORAL TWICE A DAY, CAP 0 Refills 10/19/18 Carvedilol* (CARVEDILOL*) 3.125 Mg Tablet, 3.125 MG ORAL EVERY 12 HOURS, TAB 10/19/18 Lisinopril (LISINOPRIL*) 5 Mg Tablet, 5 MG ORAL DAILY, TAB 10/19/18 Amlodipine Besylate (Norvasc) 2.5 Mg Tablet, 2.5 MG ORAL DAILY, TAB 10/08/17 Carvedilol (Coreg) 3.125 Mg Tablet, 3.125 MG ORAL EVERY 12 HOURS, TAB 10/08/17 Zolpidem Tartrate* (ZOLPIDEM TARTRATE*) 5 Mg Tablet, 5 MG ORAL BEDTIME PRN for Insomnia, TAB 0 Refills 04/01/17 Insulin Human Lispro (Humalog) 100 Unit/1 Ml Vial, 0 SUBQ, #1 UNIT 0 Refills 03/29/17 Lifitegrast (Xiidra) 1 Each Droperette, 1 EACH OP BID 03/29/17 Hydralazine Hcl* (HYDRALAZINE HCL*) 50 Mg Tablet, 50 MG ORAL EVERY 8 HOURS, TAB 03/29/17 Ranitidine Hcl* (ZANTAC*) 150 Mg Tablet, 150 MG ORAL DAILY, #30 TAB 0 Refills 03/29/17 Losartan Potassium* (LOSARTAN POTASSIUM*) 50 Mg Tablet, 50 MG ORAL DAILY, TAB 09/26/16 Ascorbic Acid* (ASCORBIC ACID*) 500 Mg Tablet, 500 MG ORAL DAILY, TAB 09/26/16 Folic Acid/Vitamin B Comp W-C (DIALYVITE 800 TABLET) 0.8 Mg Tablet, 0.8 MG PO, TAB 09/26/16 Isosorbide Dinitrate (ISOSORBIDE DINITRATE*) 5 Mg Tablet, 30 MG ORAL BID, #30 TAB 0 Refills 09/26/16 Furosemide* (LASIX*) 20 Mg Tablet, 20 MG ORAL DAILY, TAB 09/26/16 Calcium Acetate (CALCIUM ACETATE) 667 Mg Capsule, 667 MG PO, CAP 09/26/16 Ferrous Sulfate* (FERROUS SULFATE*) 325 Mg Tablet, 325 MG ORAL DAILY, #30 TAB 0 Refills 09/26/16 Mupirocin Nasal (BACTROBAN NASAL) 1 Gm Oint...g., 1 APPLIC NASAL TID for 7 Days , GM Elimination of MRSA colonization: Approximately one-half of the ointment from the single-use tube should be applied into one nostril and the other half into the other nostril twice daily for 5 days 08/15/16 Insulin Aspart (Novolog Flexpen) 100 Unit/1 Ml Insuln.pen, 1 UNITS SUBQ AC+HS 08/15/16 Temazepam* (RESTORIL*) 15 Mg Capsule, 15 MG ORAL BEDTIME PRN for Insomnia, CAP 08/15/16 Sevelamer Carbonate (Renvela) 800 Mg Tablet, 800 MG ORAL THREE TIMES A DAY, TAB 08/15/16 Polyethylene Glycol 3350* (MIRALAX*) 17 Gm Powd.pack, 17 GM ORAL DAILY PRN for Constipation, PACKET 08/15/16 Nitroglycerin (NITROSTAT) 0.4 Mg Tab.subl, 0.4 MG SL Q5M X3 DOSES PRN for CHEST PAIN, #25 TAB 0 Refills 08/15/16 Hydrocodone Bit/Acetaminophen 5-325* (NORCO 5-325*) 1 Each Tablet, 1 TAB ORAL Q8HR, TAB 0 Refills 08/15/16 Hydralazine HCl (Hydralazine HCl) 10 Mg Tablet, 10 MG ORAL EVERY 6 HOURS, TAB 08/15/16 Heparin Sod (Porcine) (HEPARIN SODIUM*) 5 000/1 Ml Vial, 5000 UNITS SUBQ EVERY 12 HOURS, VIAL 08/15/16 Diphenhydramine Hcl* (DIPHENHYDRAMINE HCL*) 25 Mg Capsule, 25 MG ORAL Q6H PRN for Itching, #30 CAP 0 Refills 08/15/16 Al Hydroxide/mg Hydroxide (Mag-Al Plus Suspension) 30 Ml Oral.susp, 30 ML PO Q6HR PRN for indigestion, ML 08/15/16 Acetaminophen (Tylenol) 325 Mg Tablet, 650 MG ORAL Q4HR PRN for Mild Pain/Temp > 100.5, #30 TAB 0 Refills 08/15/16 Clonidine Hcl* (CATAPRES*) 0.1 Mg Tablet, 0.1 MG ORAL EVERY 4 HOURS PRN for For High Blood Pressure, TAB 06/01/16 Acetaminophen* (ACETAMINOPHEN 325MG TABLET*) 325 Mg Tablet, 650 MG ORAL Q6H, TAB 10/15/15 Albuterol Sulfate* (ALBUTEROL SULFATE HHN*) 2.5 Mg/3 Ml Vial.neb, 3 ML INH Q6H PRN for Shortness of Breath, #30 EA 0 Refills 10/15/15 Lactulose (LACTULOSE*) 20 Gm/30 Ml Solution, 15 ML ORAL, ML 0 Refills 10/15/15 Pantoprazole* (PANTOPRAZOLE*) 40 Mg Tablet.dr, 40 MG ORAL DAILY, TAB 10/15/15 Ondansetron (Zofran) 4 Mg Tab, 4 MG ORAL Q6H PRN for Nausea & Vomiting, TAB 10/15/15 Allopurinol* (ZYLOPRIM*) 100 Mg Tablet, 100 MG ORAL DAILY, TAB 10/15/15 Tramadol Hcl* (ULTRAM*) 50 Mg Tablet, 50 MG ORAL Q6H PRN for For Pain, #30 TAB 0 Refills 10/15/15 Insulin Regular, Human* (NOVOLIN R*) 100 Unit/1 Ml Vial, 0 SUBQ AC+HS PRN for Sliding Scale, UNITS 06/27/14 Aspirin Ec* (ASPIRIN EC*) 81 Mg Tablet.dr, 81 MG ORAL DAILY, TAB 06/27/14 Docusate Sodium (DOK) 100 Mg Capsule, 100 MG PO BID, CAP 06/27/14 Amlodipine Besylate* (AMLODIPINE BESYLATE*) 10 Mg Tablet, 10 MG ORAL DAILY, TAB 06/27/14 Atorvastatin Calcium* (ATORVASTATIN CALCIUM*) 20 Mg Tablet, 20 MG ORAL BEDTIME, TAB 06/27/14 Med list reviewed/reconciled: Yes Allergies: Coded Allergies: NO KNOWN ALLERGIES (Unverified Allergy, Unknown, 10/15/15) Patient History History Provided By: Patient PMH Narrative Past Medical History: see triage record Reviewed Nursing Documentation: PMH: Agreed; PSxH: Agreed Nursing Documentation-PMH Hx Hypertension: Yes Hx Pacemaker: No Hx Asthma: Yes Hx COPD: Yes Hx Diabetes: Yes - Blind Hx Cancer: No Hx Gastrointestinal Problems: Yes Hx Dialysis: Yes - Hx Neurological Problems: No Hx Peripheral Neuropathy: Yes - secondary to DM Hx Tremors: Yes Hx Vertigo: Yes Hx Dizziness: Yes Hx Syncope: Yes Hx Headaches: Yes Hx Weakness: Yes Hx Fatigue: Yes Social History: Denies: smoking, alcohol use, drug use, other Review of Systems All Other Systems: negative except mentioned in HPI Physical Exam Vital Signs Date Time Temp Pulse Resp B/P (MAP) Pulse Ox O2 Delivery O2 Flow Rate FiO2 11/06/18 02:07 97.9 6 20 109/40 96 Room Air 11/06/18 05:42 2.0 Sp02 EP Interpretation: reviewed, normal Labs Laboratory Tests Test 11/06/18 02:55 White Blood Count 8.9 K/UL (4.8-10.8) Red Blood Count 2.72 M/UL (4.20-5.40) L Hemoglobin 6.6 G/DL (12.0-16.0) *L Hematocrit 21.8 % (37.0-47.0) L Mean Corpuscular Volume 80 FL (80-99) Mean Corpuscular Hemoglobin 24.3 PG (27.0-31.0) L Mean Corpuscular Hemoglobin Concent 30.3 G/DL (32.0-36.0) L Red Cell Distribution Width 21.1 % (11.6-14.8) H Platelet Count 240 K/UL (150-450) Mean Platelet Volume 6.9 FL (6.5-10.1) Neutrophils (%) (Auto) % (45.0-75.0) Lymphocytes (%) (Auto) % (20.0-45.0) Monocytes (%) (Auto) % (1.0-10.0) Eosinophils (%) (Auto) % (0.0-3.0) Basophils (%) (Auto) % (0.0-2.0) Sodium Level 139 MMOL/L (136-145) Potassium Level 5.3 MMOL/L (3.5-5.1) H Chloride Level 103 MMOL/L (98-107) Carbon Dioxide Level 24 MMOL/L (21-32) Anion Gap 12 mmol/L (5-15) Blood Urea Nitrogen 58 mg/dL (7-18) H Creatinine 7.6 MG/DL (0.55-1.30) H Estimat Glomerular Filtration Rate 6.5 mL/min (>60) Glucose Level 217 MG/DL (74-106) H Calcium Level 8.5 MG/DL (8.5-10.1) Total Bilirubin 0.9 MG/DL (0.2-1.0) Aspartate Amino Transf (AST/SGOT) 44 U/L (15-37) H Alanine Aminotransferase (ALT/SGPT) 21 U/L (12-78) Alkaline Phosphatase 318 U/L (46-116) H Total Creatine Kinase 211 U/L (26-308) Troponin I 0.005 ng/mL (0.000-0.056) Total Protein 8.3 G/DL (6.4-8.2) H Albumin 3.8 G/DL (3.4-5.0) Globulin 4.5 g/dL Albumin/Globulin Ratio 0.8 (1.0-2.7) L Lipase 1404 U/L (73-393) H General Appearance: well appearing, no apparent distress, alert Head: normocephalic EENT: PERRL/EOMI, normal ENT inspection Neck: supple Respiratory: normal breath sounds, no respiratory distress Cardiovascular: normal rate Gastrointestinal: normal inspection, non tender, soft, normal bowel sounds, non -distended Rectal: deferred Genitourinary: no CVA tenderness Musculoskeletal: normal inspection, back normal Neurologic: normal inspection, alert, oriented x3, responsive Psychiatric: normal inspection, judgement/insight normal, memory normal Skin: normal inspection, normal color, no rash, warm/dry, palpation normal, well hydrated Lymphatic: normal inspection, no adenopathy Current Medications Current Medications Medications (Trade) Dose Ordered Sig/Josi Route PRN Reason Start Time Stop Time Status Last Admin Dose Admin Acetaminophen (Tylenol) 650 mg Q4H PRN ORAL Mild Pain/Temp > 100.5 11/06/18 06:15 12/06/18 06:14 Al Hydroxide/Mg Hydroxide (Mylanta II) 30 ml Q6H PRN ORAL dyspepsia 11/06/18 06:15 12/06/18 06:14 Albuterol Sulfate (Proventil) 2.5 mg Q6H PRN HHN Shortness of Breath 11/06/18 06:15 11/11/18 06:14 Albuterol/ Ipratropium (Albuterol/ Ipratropium) 3 ml Q6H PRN HHN dyspnea 11/06/18 06:15 11/11/18 06:14 Allopurinol (Zyloprim) 100 mg DAILY ORAL 11/06/18 09:00 12/06/18 08:59 11/06/18 09:01 Amlodipine Besylate (Norvasc) 2.5 mg DAILY ORAL 11/06/18 09:00 12/06/18 08:59 11/06/18 09:01 Atorvastatin Calcium (Lipitor) 20 mg BEDTIME ORAL 11/06/18 21:00 12/06/18 20:59 Calcium Acetate (Phoslo) 667 mg EVERY 8 HOURS ORAL 11/06/18 14:00 12/06/18 13:59 Carvedilol (Coreg) 3.125 mg EVERY 12 HOURS ORAL 11/06/18 09:00 12/06/18 08:59 11/06/18 09:00 Clonidine HCl (Catapres Tab) 0.1 mg Q4H PRN ORAL For High Blood Pressure 11/06/18 06:15 12/06/18 06:14 Dextrose (Dextrose 50%) STAT PRN IV Hypoglycemia 11/06/18 06:15 12/06/18 06:14 Epoetin Jose De Jesus (Procrit (for ESRD on dialysis)) 7,000 units SUN-SUN-SUN SUBQ 11/06/18 21:00 12/06/18 20:59 Furosemide (Lasix) 100 mg EVERY 8 HOURS PRN IV dyspnea 11/06/18 06:15 12/06/18 06:14 Gabapentin (Neurontin) 400 mg TWICE A DAY ORAL 11/06/18 09:00 12/06/18 08:59 11/06/18 09:00 Heparin Sodium (Porcine) (Heparin 5000 units/ml) 5,000 units EVERY 12 HOURS SUBQ 11/06/18 09:00 12/06/18 08:59 11/06/18 09:05 Hydralazine HCl (Apresoline) 10 mg EVERY 6 HOURS ORAL 11/06/18 12:00 12/06/18 11:59 Insulin Aspart (NovoLOG) BEFORE MEALS AND HS SUBQ 11/06/18 07:30 12/06/18 07:29 Lisinopril (Zestril) 5 mg DAILY ORAL 11/06/18 09:00 12/06/18 08:59 11/06/18 09:01 Morphine Sulfate (Morphine Sulfate) 1 mg Q4H PRN IVP FOR SEVERE PAIN (7-10) 11/06/18 07:15 11/13/18 06:14 Ondansetron HCl (Zofran) 4 mg Q6H PRN IVP Nausea & Vomiting 11/06/18 06:15 12/06/18 06:14 Polyethylene Glycol (Miralax) 17 gm HSPRN PRN ORAL Constipation 11/06/18 06:15 12/06/18 06:14 Sevelamer Carbonate (Renvela) 800 mg THREE TIMES A DAY ORAL 11/06/18 09:00 12/06/18 08:59 11/06/18 09:01 Tramadol HCl (Ultram) 50 mg Q6H PRN ORAL FOR MODERATE PAIN (4-6) 11/06/18 06:15 11/13/18 06:14 Zolpidem Tartrate (Ambien) 5 mg HSPRN PRN ORAL Insomnia 11/06/18 06:15 11/13/18 06:14 GI: Plan Problems: (1) Pancreatitis (2) Iron deficiency (3) Anemia Plan Hx of recent colonoscopy at [facility] which was unremarkable s/p EGD >> gastritis, no active source of bleeding symptomatic treatment advance diet as tolerated pain mgmt ppi zofran prn fu labs, lipase, lipid panel Discussed with Dr. Garcia. Thank you for this patient referral, we will follow. The patient was seen and examined at bedside and all new and available data was reviewed in the patients chart. I agree with the above findings, impression and plan. (Patient seen earlier today. Signature stamp does not reflect patient encounter time.). - MD Veronica Mc[facility]ultyB[facility] RAJENDRA Nov 06, 2018 11:09
--- NOTE | 2018-11-06 11:11 | Consultation ---
History of Present Illness General Date patient seen: Nov 06, 2018 Chief Complaint: Back Pain-No Injury Present Illness HPI 63 year-old female with a history of ESRD on Hd Diabetes, HTN , morbid obesity, chronic anemia, Jehova's witness presented to ER with complaints of intractable back pain. She is admitted for further evaluation and management. She was recently admitted to [facility] and admitted to telemetry b/o her multiple comorbidities. Allergies: Coded Allergies: NO KNOWN ALLERGIES (Unverified Allergy, Unknown, 10/15/15) Medication History Scheduled Acetaminophen* (Acetaminophen 325MG Tablet*), 650 MG ORAL Q6H, (Reported) Allopurinol* (Zyloprim*), 100 MG ORAL DAILY, (Reported) Amlodipine Besylate (Norvasc), 2.5 MG ORAL DAILY, (Reported) Amlodipine Besylate* (Amlodipine Besylate*), 10 MG ORAL DAILY, (Reported) Ampicillin Sodium/Sulbactam Na (Unasyn 3 Gm Vial), 3 GM IJ DAILY, (Reported) Ampicillin Sodium/Sulbactam Na (Unasyn 3 Gm Vial), 3 GM IVPB DAILY, (Reported) Ascorbic Acid* (Ascorbic Acid*), 500 MG ORAL DAILY, (Reported) Aspirin Ec* (Aspirin Ec*), 81 MG ORAL DAILY, (Reported) Atorvastatin Calcium* (Atorvastatin Calcium*), 20 MG ORAL BEDTIME, (Reported) Carvedilol (Coreg), 3.125 MG ORAL EVERY 12 HOURS, (Reported) Carvedilol* (Carvedilol*), 3.125 MG ORAL EVERY 12 HOURS, (Reported) Daptomycin (DAPTOmycin), 6 MG IV q48hrs, (Reported) Docusate Sodium (Dok), 100 MG PO BID, (Reported) Ferrous Sulfate* (Ferrous Sulfate*), 325 MG ORAL DAILY, (Reported) Furosemide* (Lasix*), 20 MG ORAL DAILY, (Reported) Gabapentin* (Gabapentin*), 400 MG ORAL TWICE A DAY, (Reported) Glimepiride* (Amaryl*), 4 MG ORAL BEFORE BREAKFAST Heparin Sod (Porcine) (Heparin Sodium*), 5,000 UNITS SUBQ EVERY 12 HOURS, ( Reported) Hydralazine HCl (Hydralazine HCl), 10 MG ORAL EVERY 6 HOURS, (Reported) Hydralazine Hcl* (Hydralazine Hcl*), 50 MG ORAL EVERY 8 HOURS, (Reported) Hydrocodone Bit/Acetaminophen 5-325* ([place] 5-325*), 1 TAB ORAL Q8HR, (Reported) Insulin Aspart (Novolog Flexpen), 1 UNITS SUBQ AC+HS, (Reported) Insulin Detemir (Levemir Flexpen), 10 UNITS SUBQ BEDTIME Isosorbide Dinitrate (Isosorbide Dinitrate*), 30 MG ORAL BID, (Reported) Lifitegrast (Xiidra), 1 EACH OP BID, (Reported) Lisinopril (Lisinopril*), 5 MG ORAL DAILY, (Reported) Losartan Potassium* (Losartan Potassium*), 50 MG ORAL DAILY, (Reported) Mupirocin Nasal (Bactroban Nasal), 1 APPLIC NASAL TID, (Reported) Nitrofurantoin Monohyd/M-Cryst* (Macrobid 100 Mg*), 100 MG ORAL EVERY 12 HOURS Pantoprazole* (Pantoprazole*), 40 MG ORAL DAILY, (Reported) Ranitidine Hcl* (Zantac*), 150 MG ORAL DAILY, (Reported) Sevelamer Carbonate (Renvela), 800 MG ORAL THREE TIMES A DAY, (Reported) Scheduled PRN Acetaminophen (Tylenol), 650 MG ORAL Q4HR PRN for Mild Pain/Temp > 100.5, ( Reported) Al Hydroxide/mg Hydroxide (Mag-Al Plus Suspension), 30 ML PO Q6HR PRN for indigestion, (Reported) Albuterol Sulfate* (Albuterol Sulfate Hhn*), 3 ML INH Q6H PRN for Shortness of Breath, (Reported) Clonidine Hcl* (Catapres*), 0.1 MG ORAL EVERY 4 HOURS PRN for For High Blood Pressure, (Reported) Diphenhydramine Hcl* (Diphenhydramine Hcl*), 25 MG ORAL Q6H PRN for Itching, ( Reported) Insulin Regular, Human* (Novolin R*), 0 SUBQ AC+HS PRN for Sliding Scale, ( Reported) Nitroglycerin (Nitrostat), 0.4 MG SL Q5M X3 DOSES PRN for CHEST PAIN, (Reported) Ondansetron (Zofran), 4 MG ORAL Q6H PRN for Nausea & Vomiting, (Reported) Polyethylene Glycol 3350* (Miralax*), 17 GM ORAL DAILY PRN for Constipation, ( Reported) Temazepam* (Restoril*), 15 MG ORAL BEDTIME PRN for Insomnia, (Reported) Tramadol Hcl* (Ultram*), 50 MG ORAL Q6H PRN for For Pain, (Reported) Zolpidem Tartrate* (Zolpidem Tartrate*), 5 MG ORAL BEDTIME PRN for Insomnia, ( Reported) Miscellaneous Medications Calcium Acetate (Calcium Acetate), 667 MG PO, (Reported) Folic Acid/Vitamin B Comp W-C (Dialyvite 800 Tablet), 0.8 MG PO, (Reported) Insulin Human Lispro (Humalog), 0 SUBQ, (Reported) Lactulose (Lactulose*), 15 ML ORAL, (Reported) Unable to Obtain Medications (Unable To Obtain Meds), (Reported) Patient History Healthcare decision maker Resuscitation status Full Code Advanced Directive on File No Past Medical/Surgical History Past Medical/Surgical History: (1) ESRD (end stage renal disease) on dialysis (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 (3) Lumbar radiculopathy (4) Blindness of both eyes (5) Morbid obesity (6) Coronary artery disease (7) History of colonic polyps (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 Review of Systems All Other Systems: negative except mentioned in HPI Physical Exam General Appearance: WD/WN, no apparent distress Lines, tubes and drains: peripheral HEENT: normocephalic, atraumatic Neck: non-tender, normal alignment Respiratory/Chest: chest wall non-tender, lungs clear Cardiovascular/Chest: normal peripheral pulses Abdomen: normal bowel sounds, non tender Genitourinary/Rectal: normal genital exam Extremities: normal range of motion Last 24 Hour Vital Signs Date Time Temp Pulse Resp B/P (MAP) Pulse Ox O2 Delivery O2 Flow Rate FiO2 11/06/18 09:40 Nasal Cannula 2.0 11/06/18 09:01 122/72 11/06/18 09:01 65 122/72 11/06/18 09:00 65 122/72 11/06/18 08:00 97.5 65 20 122/72 (89) 99 11/06/18 07:14 98.5 75 20 137/80 100 Nasal Cannula 2.0 12/12/18 07:12 98.5 75 20 137/80 100 Nasal Cannula 2.0 11/06/18 05:42 98.0 73 20 128/84 100 Nasal Cannula 2.0 11/06/18 02:14 98.3 56 20 109/58 97 Nasal Cannula 11/06/18 02:07 97.9 6 20 109/40 96 Room Air Intake and Output 11/05/18 11/06/18 19:00 07:00 Intake Total 100 ml Balance 100 ml Intake Oral 100 ml Laboratory Tests Test 11/06/18 02:55 White Blood Count 8.9 K/UL (4.8-10.8) Red Blood Count 2.72 M/UL (4.20-5.40) L Hemoglobin 6.6 G/DL (12.0-16.0) *L Hematocrit 21.8 % (37.0-47.0) L Mean Corpuscular Volume 80 FL (80-99) Mean Corpuscular Hemoglobin 24.3 PG (27.0-31.0) L Mean Corpuscular Hemoglobin Concent 30.3 G/DL (32.0-36.0) L Red Cell Distribution Width 21.1 % (11.6-14.8) H Platelet Count 240 K/UL (150-450) Mean Platelet Volume 6.9 FL (6.5-10.1) Neutrophils (%) (Auto) % (45.0-75.0) Lymphocytes (%) (Auto) % (20.0-45.0) Monocytes (%) (Auto) % (1.0-10.0) Eosinophils (%) (Auto) % (0.0-3.0) Basophils (%) (Auto) % (0.0-2.0) Sodium Level 139 MMOL/L (136-145) Potassium Level 5.3 MMOL/L (3.5-5.1) H Chloride Level 103 MMOL/L (98-107) Carbon Dioxide Level 24 MMOL/L (21-32) Anion Gap 12 mmol/L (5-15) Blood Urea Nitrogen 58 mg/dL (7-18) H Creatinine 7.6 MG/DL (0.55-1.30) H Estimat Glomerular Filtration Rate 6.5 mL/min (>60) Glucose Level 217 MG/DL (74-106) H Calcium Level 8.5 MG/DL (8.5-10.1) Total Bilirubin 0.9 MG/DL (0.2-1.0) Aspartate Amino Transf (AST/SGOT) 44 U/L (15-37) H Alanine Aminotransferase (ALT/SGPT) 21 U/L (12-78) Alkaline Phosphatase 318 U/L (46-116) H Total Creatine Kinase 211 U/L (26-308) Troponin I 0.005 ng/mL (0.000-0.056) Total Protein 8.3 G/DL (6.4-8.2) H Albumin 3.8 G/DL (3.4-5.0) Globulin 4.5 g/dL Albumin/Globulin Ratio 0.8 (1.0-2.7) L Lipase 1404 U/L (73-393) H Microbiology Date/Time Source Procedure Growth Status 11/06/18 04:30 Rectum Received Height (Feet): 5 Height (Inches): 9.00 Weight (Pounds): 332 Medications Current Medications Medications (Trade) Dose Ordered Sig/Josi Route PRN Reason Start Time Stop Time Status Last Admin Dose Admin Acetaminophen (Tylenol) 650 mg Q4H PRN ORAL Mild Pain/Temp > 100.5 11/06/18 06:15 12/06/18 06:14 Al Hydroxide/Mg Hydroxide (Mylanta II) 30 ml Q6H PRN ORAL dyspepsia 11/06/18 06:15 12/06/18 06:14 Albuterol Sulfate (Proventil) 2.5 mg Q6H PRN HHN Shortness of Breath 11/06/18 06:15 11/11/18 06:14 Albuterol/ Ipratropium (Albuterol/ Ipratropium) 3 ml Q6H PRN HHN dyspnea 11/06/18 06:15 11/11/18 06:14 Allopurinol (Zyloprim) 100 mg DAILY ORAL 11/06/18 09:00 12/06/18 08:59 11/06/18 09:01 Amlodipine Besylate (Norvasc) 2.5 mg DAILY ORAL 11/06/18 09:00 12/06/18 08:59 11/06/18 09:01 Atorvastatin Calcium (Lipitor) 20 mg BEDTIME ORAL 11/06/18 21:00 12/06/18 20:59 Calcium Acetate (Phoslo) 667 mg EVERY 8 HOURS ORAL 11/06/18 14:00 12/06/18 13:59 Carvedilol (Coreg) 3.125 mg EVERY 12 HOURS ORAL 11/06/18 09:00 12/06/18 08:59 11/06/18 09:00 Clonidine HCl (Catapres Tab) 0.1 mg Q4H PRN ORAL For High Blood Pressure 11/06/18 06:15 12/06/18 06:14 Dextrose (Dextrose 50%) STAT PRN IV Hypoglycemia 11/06/18 06:15 12/06/18 06:14 Epoetin Jose De Jesus (Procrit (for ESRD on dialysis)) 7,000 units SUN-SUN-SUN SUBQ 11/06/18 21:00 12/06/18 20:59 Furosemide (Lasix) 100 mg EVERY 8 HOURS PRN IV dyspnea 11/06/18 06:15 12/06/18 06:14 Gabapentin (Neurontin) 400 mg TWICE A DAY ORAL 11/06/18 09:00 12/06/18 08:59 11/06/18 09:00 Heparin Sodium (Porcine) (Heparin 5000 units/ml) 5,000 units EVERY 12 HOURS SUBQ 11/06/18 09:00 12/06/18 08:59 11/06/18 09:05 Hydralazine HCl (Apresoline) 10 mg EVERY 6 HOURS ORAL 11/06/18 12:00 12/06/18 11:59 Insulin Aspart (NovoLOG) BEFORE MEALS AND HS SUBQ 11/06/18 07:30 12/06/18 07:29 Lisinopril (Zestril) 5 mg DAILY ORAL 11/06/18 09:00 12/06/18 08:59 11/06/18 09:01 Morphine Sulfate (Morphine Sulfate) 1 mg Q4H PRN IVP FOR SEVERE PAIN (7-10) 11/06/18 07:15 11/13/18 06:14 Ondansetron HCl (Zofran) 4 mg Q6H PRN IVP Nausea & Vomiting 11/06/18 06:15 12/06/18 06:14 Polyethylene Glycol (Miralax) 17 gm HSPRN PRN ORAL Constipation 11/06/18 06:15 12/06/18 06:14 Sevelamer Carbonate (Renvela) 800 mg THREE TIMES A DAY ORAL 11/06/18 09:00 12/06/18 08:59 11/06/18 09:01 Tramadol HCl (Ultram) 50 mg Q6H PRN ORAL FOR MODERATE PAIN (4-6) 11/06/18 06:15 11/13/18 06:14 Zolpidem Tartrate (Ambien) 5 mg HSPRN PRN ORAL Insomnia 11/06/18 06:15 11/13/18 06:14 Assessment/Plan Problem List: (1) Intractable back pain ICD Codes: M54.9 - Dorsalgia, unspecified SNOMED: 420977991 (2) Lumbar radiculopathy ICD Codes: M54.16 - Lumbar radiculopathy SNOMED: 200391930 (3) End stage renal disease on dialysis ICD Codes: N18.6 - End stage renal failure on dialysis; Z99.2 - Dependence on renal dialysis SNOMED: 317911685 (4) Coronary artery disease ICD Codes: I25.10 - Coronary artery disease SNOMED: 00716778 (5) ESRD (end stage renal disease) on dialysis ICD Codes: N18.6 - End stage renal disease; Z99.2 - Dependence on renal dialysis SNOMED: 229447172 (6) Blindness of both eyes ICD Codes: H54.0 - Blindness SNOMED: 459189358 (7) Anemia ICD Codes: D64.9 - Anemia, unspecified SNOMED: 253098996 Assessment/Plan pain management Renal to see for HD sliding scale, diabetic diet check electrolytes avoid excessive blood-draws. symptomatic treatment. Meghana Murillo MD Nov 06, 2018 11:11
--- NOTE | 2018-11-06 11:41 | Cardiac Electrophysiology PN ---
Subjective Subjective [id number] Objective Last 24 Hour Vital Signs Date Time Temp Pulse Resp B/P (MAP) Pulse Ox O2 Delivery O2 Flow Rate FiO2 11/06/18 09:40 Nasal Cannula 2.0 11/06/18 09:01 122/72 18 09:01 65 122/72 18 09:00 65 122/72 11/06/18 08:00 97.5 65 20 122/72 (89) 99 11/06/18 07:14 98.5 75 20 137/80 100 Nasal Cannula 2.0 11/06/18 07:12 98.5 75 20 137/80 100 Nasal Cannula 2.0 11/06/18 05:42 98.0 73 20 128/84 100 Nasal Cannula 2.0 11/06/18 02:14 98.3 56 20 109/58 97 Nasal Cannula 11/06/18 02:07 97.9 6 20 109/40 96 Room Air Intake and Output 11/05/18 11/06/18 19:00 07:00 Intake Total 100 ml Balance 100 ml Intake Oral 100 ml Laboratory Tests Test 11/06/18 02:55 White Blood Count 8.9 K/UL (4.8-10.8) Red Blood Count 2.72 M/UL (4.20-5.40) L Hemoglobin 6.6 G/DL (12.0-16.0) *L Hematocrit 21.8 % (37.0-47.0) L Mean Corpuscular Volume 80 FL (80-99) Mean Corpuscular Hemoglobin 24.3 PG (27.0-31.0) L Mean Corpuscular Hemoglobin Concent 30.3 G/DL (32.0-36.0) L Red Cell Distribution Width 21.1 % (11.6-14.8) H Platelet Count 240 K/UL (150-450) Mean Platelet Volume 6.9 FL (6.5-10.1) Neutrophils (%) (Auto) % (45.0-75.0) Lymphocytes (%) (Auto) % (20.0-45.0) Monocytes (%) (Auto) % (1.0-10.0) Eosinophils (%) (Auto) % (0.0-3.0) Basophils (%) (Auto) % (0.0-2.0) Sodium Level 139 MMOL/L (136-145) Potassium Level 5.3 MMOL/L (3.5-5.1) H Chloride Level 103 MMOL/L (98-107) Carbon Dioxide Level 24 MMOL/L (21-32) Anion Gap 12 mmol/L (5-15) Blood Urea Nitrogen 58 mg/dL (7-18) H Creatinine 7.6 MG/DL (0.55-1.30) H Estimat Glomerular Filtration Rate 6.5 mL/min (>60) Glucose Level 217 MG/DL (74-106) H Calcium Level 8.5 MG/DL (8.5-10.1) Total Bilirubin 0.9 MG/DL (0.2-1.0) Aspartate Amino Transf (AST/SGOT) 44 U/L (15-37) H Alanine Aminotransferase (ALT/SGPT) 21 U/L (12-78) Alkaline Phosphatase 318 U/L (46-116) H Total Creatine Kinase 211 U/L (26-308) Troponin I 0.005 ng/mL (0.000-0.056) Total Protein 8.3 G/DL (6.4-8.2) H Albumin 3.8 G/DL (3.4-5.0) Globulin 4.5 g/dL Albumin/Globulin Ratio 0.8 (1.0-2.7) L Lipase 1404 U/L (73-393) H Microbiology Date/Time Source Procedure Growth Status 11/06/18 04:30 Rectum Received Shalom Vinson MD Nov 06, 2018 11:41
[2018-11-06] MEDS: HydrALAZINE 10mg Tab ORAL SCH ×2 (12:00→17:18)
--- NOTE | 2018-11-06 12:59 | Diagnostic Imaging Report ---
Indication: Shortness of breath Technique: One view of the chest Comparison: 10/28/2018 Findings: Again demonstrated is cardiomegaly. Again demonstrated is a lateral interstitial congestion, appearing similar to the previous study. There is probably some pleural fluid on the left. Left chest tunneled dialysis catheter remains Impression: Cardiac megaly and pulmonary venous congestion, similar to prior study on 10/28/2018 Other findings as noted
[2018-11-06] MEDS: Calcium Acetate 667mg Tab ORAL SCH ×2 (14:07→22:04)
--- NOTE | 2018-11-06 17:02 | Consultation ---
History of Present Illness General Date patient seen: Nov 06, 2018 Chief Complaint: Back Pain-No Injury Referring physician: BRIE LAN Reason for Consultation: PANCREATITIS Present Illness HPI 63 y/o F with hx of ESRD on HD, DM2, b/l eye blindness, CHF, bradycardia, 2ry hyperparathyroidism, CAD s/p stent, AOCD, s/p AVG w recent rupture, HTN, morbid obesity, recent admission presents to ED on 11/06 with intractable back pain Of note, patient admitted here from 10/22 to 10/30 with SOB, fatigue, R foot blisters, anemia and hyperkalemia. Was discharge to a Nursing facility, however patient signed out AMA from the facility Allergies: Coded Allergies: NO KNOWN ALLERGIES (Unverified Allergy, Unknown, 10/15/15) Medication History Scheduled Acetaminophen* (Acetaminophen 325MG Tablet*), 650 MG ORAL Q6H, (Reported) Allopurinol* (Zyloprim*), 100 MG ORAL DAILY, (Reported) Amlodipine Besylate (Norvasc), 2.5 MG ORAL DAILY, (Reported) Amlodipine Besylate* (Amlodipine Besylate*), 10 MG ORAL DAILY, (Reported) Ampicillin Sodium/Sulbactam Na (Unasyn 3 Gm Vial), 3 GM IJ DAILY, (Reported) Ampicillin Sodium/Sulbactam Na (Unasyn 3 Gm Vial), 3 GM IVPB DAILY, (Reported) Ascorbic Acid* (Ascorbic Acid*), 500 MG ORAL DAILY, (Reported) Aspirin Ec* (Aspirin Ec*), 81 MG ORAL DAILY, (Reported) Atorvastatin Calcium* (Atorvastatin Calcium*), 20 MG ORAL BEDTIME, (Reported) Carvedilol (Coreg), 3.125 MG ORAL EVERY 12 HOURS, (Reported) Carvedilol* (Carvedilol*), 3.125 MG ORAL EVERY 12 HOURS, (Reported) Daptomycin (DAPTOmycin), 6 MG IV q48hrs, (Reported) Docusate Sodium (Dok), 100 MG PO BID, (Reported) Ferrous Sulfate* (Ferrous Sulfate*), 325 MG ORAL DAILY, (Reported) Furosemide* (Lasix*), 20 MG ORAL DAILY, (Reported) Gabapentin* (Gabapentin*), 400 MG ORAL TWICE A DAY, (Reported) Glimepiride* (Amaryl*), 4 MG ORAL BEFORE BREAKFAST Heparin Sod (Porcine) (Heparin Sodium*), 5,000 UNITS SUBQ EVERY 12 HOURS, ( Reported) Hydralazine HCl (Hydralazine HCl), 10 MG ORAL EVERY 6 HOURS, (Reported) Hydralazine Hcl* (Hydralazine Hcl*), 50 MG ORAL EVERY 8 HOURS, (Reported) Hydrocodone Bit/Acetaminophen 5-325* ([place] 5-325*), 1 TAB ORAL Q8HR, (Reported) Insulin Aspart (Novolog Flexpen), 1 UNITS SUBQ AC+HS, (Reported) Insulin Detemir (Levemir Flexpen), 10 UNITS SUBQ BEDTIME Isosorbide Dinitrate (Isosorbide Dinitrate*), 30 MG ORAL BID, (Reported) Lifitegrast (Xiidra), 1 EACH OP BID, (Reported) Lisinopril (Lisinopril*), 5 MG ORAL DAILY, (Reported) Losartan Potassium* (Losartan Potassium*), 50 MG ORAL DAILY, (Reported) Mupirocin Nasal (Bactroban Nasal), 1 APPLIC NASAL TID, (Reported) Nitrofurantoin Monohyd/M-Cryst* (Macrobid 100 Mg*), 100 MG ORAL EVERY 12 HOURS Pantoprazole* (Pantoprazole*), 40 MG ORAL DAILY, (Reported) Ranitidine Hcl* (Zantac*), 150 MG ORAL DAILY, (Reported) Sevelamer Carbonate (Renvela), 800 MG ORAL THREE TIMES A DAY, (Reported) Scheduled PRN Acetaminophen (Tylenol), 650 MG ORAL Q4HR PRN for Mild Pain/Temp > 100.5, ( Reported) Al Hydroxide/mg Hydroxide (Mag-Al Plus Suspension), 30 ML PO Q6HR PRN for indigestion, (Reported) Albuterol Sulfate* (Albuterol Sulfate Hhn*), 3 ML INH Q6H PRN for Shortness of Breath, (Reported) Clonidine Hcl* (Catapres*), 0.1 MG ORAL EVERY 4 HOURS PRN for For High Blood Pressure, (Reported) Diphenhydramine Hcl* (Diphenhydramine Hcl*), 25 MG ORAL Q6H PRN for Itching, ( Reported) Insulin Regular, Human* (Novolin R*), 0 SUBQ AC+HS PRN for Sliding Scale, ( Reported) Nitroglycerin (Nitrostat), 0.4 MG SL Q5M X3 DOSES PRN for CHEST PAIN, (Reported) Ondansetron (Zofran), 4 MG ORAL Q6H PRN for Nausea & Vomiting, (Reported) Polyethylene Glycol 3350* (Miralax*), 17 GM ORAL DAILY PRN for Constipation, ( Reported) Temazepam* (Restoril*), 15 MG ORAL BEDTIME PRN for Insomnia, (Reported) Tramadol Hcl* (Ultram*), 50 MG ORAL Q6H PRN for For Pain, (Reported) Zolpidem Tartrate* (Zolpidem Tartrate*), 5 MG ORAL BEDTIME PRN for Insomnia, ( Reported) Miscellaneous Medications Calcium Acetate (Calcium Acetate), 667 MG PO, (Reported) Folic Acid/Vitamin B Comp W-C (Dialyvite 800 Tablet), 0.8 MG PO, (Reported) Insulin Human Lispro (Humalog), 0 SUBQ, (Reported) Lactulose (Lactulose*), 15 ML ORAL, (Reported) Unable to Obtain Medications (Unable To Obtain Meds), (Reported) Patient History Healthcare decision maker Resuscitation status Full Code Advanced Directive on File No Patient History Narrative Pmhx: as above Shx: reviewed Fhx: non contributory Review of Systems All Other Systems: negative except mentioned in HPI Physical Exam Physical Exam Narrative General Appearance: WD/WN, no apparent distress Lines, tubes and drains: peripheral HEENT: normocephalic, atraumatic Neck: non-tender, normal alignment Respiratory/Chest: chest wall non-tender, lungs clear Cardiovascular/Chest: normal peripheral pulses Abdomen: normal bowel sounds, non tender Genitourinary/Rectal: normal genital exam Extremities: normal range of motion Last 24 Hour Vital Signs Date Time Temp Pulse Resp B/P (MAP) Pulse Ox O2 Delivery O2 Flow Rate FiO2 11/06/18 16:00 97.5 57 20 140/60 (86) 99 11/06/18 12:31 97.6 56 21 108/69 (82) 99 11/06/18 12:00 108/69 11/06/18 12:00 59 11/06/18 09:40 Nasal Cannula 2.0 11/06/18 09:01 122/72 11/06/18 09:01 65 122/72 11/06/18 09:00 65 122/72 11/06/18 08:00 55 11/06/18 08:00 97.5 65 20 122/72 (89) 99 11/06/18 07:14 98.5 75 20 137/80 100 Nasal Cannula 2.0 11/06/18 07:12 98.5 75 20 137/80 100 Nasal Cannula 2.0 11/06/18 05:42 98.0 73 20 128/84 100 Nasal Cannula 2.0 11/06/18 02:14 98.3 56 20 109/58 97 Nasal Cannula 11/06/18 02:07 97.9 6 20 109/40 96 Room Air Intake and Output 11/05/18 11/06/18 19:00 07:00 Intake Total 100 ml Balance 100 ml Intake Oral 100 ml Laboratory Tests Test 11/06/18 02:55 White Blood Count 8.9 K/UL (4.8-10.8) Red Blood Count 2.72 M/UL (4.20-5.40) L Hemoglobin 6.6 G/DL (12.0-16.0) *L Hematocrit 21.8 % (37.0-47.0) L Mean Corpuscular Volume 80 FL (80-99) Mean Corpuscular Hemoglobin 24.3 PG (27.0-31.0) L Mean Corpuscular Hemoglobin Concent 30.3 G/DL (32.0-36.0) L Red Cell Distribution Width 21.1 % (11.6-14.8) H Platelet Count 240 K/UL (150-450) Mean Platelet Volume 6.9 FL (6.5-10.1) Neutrophils (%) (Auto) % (45.0-75.0) Lymphocytes (%) (Auto) % (20.0-45.0) Monocytes (%) (Auto) % (1.0-10.0) Eosinophils (%) (Auto) % (0.0-3.0) Basophils (%) (Auto) % (0.0-2.0) Sodium Level 139 MMOL/L (136-145) Potassium Level 5.3 MMOL/L (3.5-5.1) H Chloride Level 103 MMOL/L (98-107) Carbon Dioxide Level 24 MMOL/L (21-32) Anion Gap 12 mmol/L (5-15) Blood Urea Nitrogen 58 mg/dL (7-18) H Creatinine 7.6 MG/DL (0.55-1.30) H Estimat Glomerular Filtration Rate 6.5 mL/min (>60) Glucose Level 217 MG/DL (74-106) H Calcium Level 8.5 MG/DL (8.5-10.1) Total Bilirubin 0.9 MG/DL (0.2-1.0) Aspartate Amino Transf (AST/SGOT) 44 U/L (15-37) H Alanine Aminotransferase (ALT/SGPT) 21 U/L (12-78) Alkaline Phosphatase 318 U/L (46-116) H Total Creatine Kinase 211 U/L (26-308) Troponin I 0.005 ng/mL (0.000-0.056) Total Protein 8.3 G/DL (6.4-8.2) H Albumin 3.8 G/DL (3.4-5.0) Globulin 4.5 g/dL Albumin/Globulin Ratio 0.8 (1.0-2.7) L Lipase 1404 U/L (73-393) H Microbiology Date/Time Source Procedure Growth Status 11/06/18 04:30 Rectum Received Height (Feet): 5 Height (Inches): 9.00 Weight (Pounds): 332 Medications Current Medications Medications (Trade) Dose Ordered Sig/Josi Route PRN Reason Start Time Stop Time Status Last Admin Dose Admin Acetaminophen (Tylenol) 650 mg Q4H PRN ORAL Mild Pain/Temp > 100.5 11/06/18 06:15 12/06/18 06:14 Al Hydroxide/Mg Hydroxide (Mylanta II) 30 ml Q6H PRN ORAL dyspepsia 11/06/18 06:15 12/06/18 06:14 Albuterol Sulfate (Proventil) 2.5 mg Q6H PRN HHN Shortness of Breath 11/06/18 06:15 11/11/18 06:14 Albuterol/ Ipratropium (Albuterol/ Ipratropium) 3 ml Q6H PRN HHN dyspnea 11/06/18 06:15 11/11/18 06:14 Allopurinol (Zyloprim) 100 mg DAILY ORAL 11/06/18 09:00 12/06/18 08:59 11/06/18 09:01 Amlodipine Besylate (Norvasc) 2.5 mg DAILY ORAL 11/06/18 09:00 12/06/18 08:59 11/06/18 09:01 Atorvastatin Calcium (Lipitor) 20 mg BEDTIME ORAL 11/06/18 21:00 12/06/18 20:59 Calcium Acetate (Phoslo) 667 mg EVERY 8 HOURS ORAL 11/06/18 14:00 12/06/18 13:59 11/06/18 14:07 Clonidine HCl (Catapres Tab) 0.1 mg Q4H PRN ORAL For High Blood Pressure 11/06/18 06:15 12/06/18 06:14 Dextrose (Dextrose 50%) STAT PRN IV Hypoglycemia 11/06/18 06:15 12/06/18 06:14 Epoetin Jose De Jesus (Procrit (for ESRD on dialysis)) 7,000 units MON-WED-FRI SUBQ 11/06/18 21:00 12/06/18 20:59 Furosemide (Lasix) 100 mg EVERY 8 HOURS PRN IV dyspnea 11/06/18 06:15 12/06/18 06:14 Gabapentin (Neurontin) 400 mg TWICE A DAY ORAL 11/06/18 09:00 12/06/18 08:59 11/06/18 09:00 Heparin Sodium (Porcine) (Heparin 5000 units/ml) 5,000 units EVERY 12 HOURS SUBQ 11/06/18 09:00 12/06/18 08:59 11/06/18 09:05 Hydralazine HCl (Apresoline) 10 mg EVERY 6 HOURS ORAL 11/06/18 12:00 12/06/18 11:59 Insulin Aspart (NovoLOG) BEFORE MEALS AND HS SUBQ 11/06/18 07:30 12/06/18 07:29 11/06/18 11:35 Lisinopril (Zestril) 5 mg DAILY ORAL 11/06/18 09:00 12/06/18 08:59 11/06/18 09:01 Morphine Sulfate (Morphine Sulfate) 1 mg Q4H PRN IVP FOR SEVERE PAIN (7-10) 11/06/18 07:15 11/13/18 06:14 Ondansetron HCl (Zofran) 4 mg Q6H PRN IVP Nausea & Vomiting 11/06/18 06:15 12/06/18 06:14 Polyethylene Glycol (Miralax) 17 gm HSPRN PRN ORAL Constipation 11/06/18 06:15 12/06/18 06:14 Sevelamer Carbonate (Renvela) 800 mg THREE TIMES A DAY ORAL 11/06/18 09:00 12/06/18 08:59 11/06/18 12:39 Tramadol HCl (Ultram) 50 mg Q6H PRN ORAL FOR MODERATE PAIN (4-6) 11/06/18 06:15 11/13/18 06:14 Zolpidem Tartrate (Ambien) 5 mg HSPRN PRN ORAL Insomnia 11/06/18 06:15 11/13/18 06:14 Assessment/Plan Assessment/Plan Abx: None Assessment: Back pain likely 2ry to acute pancreatitis -lipase ~1k -CXR: : Cardiac megaly and pulmonary venous congestion, similar to prior study on 10/28/2018 Afebrile No leukocytosis REcent R foot blisters/cellulitis, sp Rx -10/29 sp bedsie I+D; wound cx neg -10/25 s/p bedsdie I+D; wound cx not sent Recent polymicrobial Gram positive bacteremia- likely colonizers -10/25 BCx Neg (peripheral) -10/22 Bcx 1/4 CONS, 1/4 diphteroids; 10/24 2/4 S, mitis oralis (source? periheral or cental line) -2d Echo:No discrete vegetations seen, however SBE may not be excluded by transthoracic 2-D echo. Consider CLAY if clinically indicated. severe anemia ESRD on HD DM2 b/l eye blindness CHF (recent exacerbation 09/2018) bradycardia 2ry hyperparathyroidism CAD s/p stent AOCD s/p AVG w recent rupture HTN morbid obesity Plan: -Continue to monitor off abx -10/30 SP IV Vancomycin and Unasyn #7 -12/ SP Clindamycin #3 -f/u cx -Monitor CBC/CMP, temperatures -GI f/u -wound care Thank you for this consultation. Will continue to follow along with you. Discussed with Susi Kelly M.D. Nov 06, 2018 17:02
--- NOTE | 2018-11-06 19:11 | Consultation ---
Consult Note Consult Note S: Pt seen bedside for Right foot wound dorsal lateral MF and medial hallux. Pt resting at bedside, NAD. O: - Focused RLE Right lateral midfoot wound: Wound base is granular, superficial only dermal exposed. No acute SOI. No active purulent drainage. Allegra-wound margins are WNL. Right plantar hallux: Wound base is granular, superficial only dermal exposed. No acute SOI. No active purulent drainage. Allegra-wound margins are WNL. Assessment/Plan A: Right foot superficial ulcerations. Stable. No acute SOI. ESRD on HD DM2 b/l eye blindness CHF (recent exacerbation 09/2018) bradycardia 2ry hyperparathyroidism CAD s/p stent AOCD s/p AVG w recent rupture HTN morbid obesity P: - Pt seen and evaluated. - Chart reviewed. - Temp, 97.5 - WBC, 8.9 - ESR, CRP pending. - Right foot XR ordered. Will await results. - Right foot MRI ordered. Will await results. - Arterial U/S B/L LE. - Cont local wound care daily: betadine to areas of ulcerations, xeroform, 4 x 4 gauze, ABD pad. Kerlix. - I believe these wounds are pressure related pt rests at bedside with external rotation of legs increasing pressure to areas of ulceration. - Will await results of imaging study. - Pod will cont to monitor. Gerry Jean DPM Nov 06, 2018 19:11
[2018-11-06] MEDS: traMADol 50mg tab ORAL PRN (20:49)
[2018-11-06] MEDS ORDERED: Atorvastatin 20mg tab ORAL SCH (21:00)
[2018-11-06] MEDS ORDERED: Epogen (for ESRD on dialysis) SUBQ SCH (21:00)
--- NOTE | 2018-11-06 21:00 | History and Physical Report ---
DATE OF ADMISSION: 11/06/2018 CONSULTANTS: 1. Meghana Murillo M.D. 2. Shalom Vinson M.D. 3. Demetris Squires M.D. 4. Jamison Garcia M.D. 5. Malick Lizama M.D. CHIEF COMPLAINT: Back pain, weakness, edema, pancreatitis, and ESRD. BRIEF HISTORY: This is a 63-year-old female, who lives at home, recently discharged from [facility] [place], with the above-mentioned diagnosis, became short of breath, weak, lethargic, and abdominal pain, came in to [place] [facility], diagnosed with the above, and admitted to telemetry for further care. Currently, O2 NC, slight short of breath. Slightly weak in bed. No complaint. REVIEW OF SYSTEMS: No chest pain. Slight short of breath. Slight nausea. No vomiting. No diarrhea. PAST MEDICAL HISTORY: Include ESRD, congestive heart failure, back pain, diabetes, and hypertension. PAST SURGICAL HISTORY: Shunt. MEDICATIONS: Include Lipitor, Procrit, PhosLo, , Zyloprim, Norvasc, Neurontin, Zestril, Renvela, NovoLog, and morphine. ALLERGIES: Denies. SOCIAL HISTORY: No smoking. No alcohol. No intravenous drug use. FAMILY HISTORY: Noncontributory. PHYSICAL EXAMINATION: GENERAL: Lethargic in bed, oriented x2, in no acute distress. VITAL SIGNS: Temperature 97, pulse 56, respirations 21, and blood pressure 108/69. CARDIOVASCULAR: No murmur. LUNGS: Poor air exchange. ABDOMEN: Bowel sounds distant. EXTREMITIES: Showed no cyanosis or clubbing. 1+ edema. NEUROLOGIC: The patient moves all extremities, slightly weak. LABORATORY AND DIAGNOSTIC DATA: Labs, at this time, show hemoglobin 6.6, otherwise CBC is normal. Potassium 5.3, BUN and creatinine are 50 and 7.6, and glucose 217. Troponin 0.005. ASSESSMENT: 1. Back pain. 2. Weakness. 3. Edema. 4. Pancreatitis. 5. Anemia. 6. ESRD. 7. Congestive heart failure. 8. Diabetes. 9. Hypertension. 10. Obesity. 11. Right foot wound. PLAN: 1. Continue premeds. 2. Wound care. 3. Antibiotics per Infectious Disease. 4. Blood pressure and blood sugar control. 5. Dialysis p.r.n. 6. O2 and pulmonary treatment. 7. OT, PT, and dietary evaluation. 8. CBC and BMP in the morning. 9. Dr. Long and Dr. Eid will see the patient too. Roderick Henning D.O. DR: TABBY JOB#: [id number] CC:
--- NOTE | 2018-11-06 23:00 | Consultation ---
DATE OF CONSULTATION: 11/06/2018 CARDIOLOGY CONSULTATION CONSULTING PHYSICIAN: Shalom Vinson M.D. REFERRING PHYSICIAN: Roderick Henning D.O. REASON FOR CONSULTATION: Evaluation of hypertension, bradycardia, and congestive heart failure. HISTORY OF PRESENT ILLNESS: The patient is a 63-year-old -[place] lady with history of hypertension, diabetes, congestive heart failure, end-stage renal disease, blindness, chronic anemia, and generalized weakness, was just recently discharged from the hospital. The patient was brought back to the emergency room for intractable back pain. The patient was admitted and a Cardiology consultation was obtained for further evaluation and management. REVIEW OF SYSTEMS: Negative other than what is mentioned in the history of present illness. PAST MEDICAL HISTORY: As mentioned above. FAMILY HISTORY: Noncontributory. SOCIAL HISTORY: She lives in halfway. She does not smoke or drink alcohol. PHYSICAL EXAMINATION: VITAL SIGNS: Blood pressure is 122/72, pulse 65, respiratory rate 18, and temperature 97.5 degrees. HEAD AND NECK: Showed no JVD. LUNGS: Coarse rhonchi. CARDIOVASCULAR: Shows regular S1 and S2 with no gallop or murmur. ABDOMEN: Soft. EXTREMITIES: A 1+ pitting edema. LABORATORY AND DIAGNOSTIC DATA: Her labs show white count of 8.9, hemoglobin 6.6, hematocrit of 21.8, and platelet count 240,000. Sodium 139, potassium 5.3, BUN of 50, creatinine 7.6, and glucose of 217. Troponin is negative. ASSESSMENT AND PLAN: 1. Hypertension. The patient is on 2.5 mg daily. We will increase it to 5 mg daily. The patient is also on lisinopril 5 mg daily that would be continued. We will discontinue Coreg as this patient has had recurrent episodes of bradycardia in previous admissions. She is also on Lasix 100 mg IV every 8 hours on a p.r.n. basis. 2. Bradycardia. Discontinue Coreg and congestive heart failure with diastolic dysfunction, on hemodialysis. 3. Recurrent nonsustained ventricular tachycardia of beats. Nuclear stress test hospital on 10/25/2018 showed no evidence of ischemia. 4. Hyperlipidemia. 5. History of positive blood cultures and right toe blisters, status post surgery for podiatry debridement. 6. Diabetes. 7. Congestive heart failure with diastolic dysfunction with an ejection fraction 55%. Thank you very much, Dr. Henning, for allowing me to participate in the care of this patient. Please do not hesitate to contact me for any questions regarding my evaluation. Shalom Vinson M.D. DR: HECTOR JOB#: [id number] CC:
[2018-11-07] VITALS: BP 130/73
[2018-11-07] MEDS: HydrALAZINE 10mg Tab ORAL SCH ×4 (01:05→18:00)
[2018-11-07 04:00] VITALS: BP 133/82
[2018-11-07] MEDS: NovoLOG Insulin Flexpen SUBQ SCH ×4 (06:30→21:04)
--- NOTE | 2018-11-07 06:36 | General Progress Note ---
Assessment/Plan Assessment/Plan # Anemia of chronic disease due to underlying chronic medical issues, multifactorial. 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 Hx of esrd on hd. --> Trend Hgb remains low at 6.5 --> 6.6 --> pending --> Prior anemia w/u has been reviewed. Ferritin >2000 --> No evidence of hemolysis is noted, peripheral smear has been reviewed. --> Hgb goal >7. Transfuse prn. --> EGD 10/24 --> off heparin sq at this time, is on scds --> bone marrow biopsy that can be done as an outpatient. agree with pcp --> EPOGEN since patient is a Christian # Anemia of chronic kidney disease. --> Je[employer] and does not take any blood products --> on epogen, will continue --> would refrain from iv iron, since is overloaded --> b1, b12, folate as outpatient as well # End-stage renal disease on hemodialysis. Nephro is following, appreciate recs. --> The patient is on hemodialysis due to shortness of breath. # Mild hyperkalemia, potassium 6.2 on admission --> Currently remains elevated at 5.2--> improves with HD --> HD 3x a week --> appreciate nephro recs # Hypertension. Cardiology is following, appreciate recs. --> most recent test was negative per Dr. Vinson --> Adjust medications as appropriate. --> bp control # Diabetes mellitus per primary care physician. --> Cont on insulin --> Cont to monitor BS levels # back pain -- consider pain service eval as required --> opiates as needed, imaging to eval : GREATLY APPRECIATE CONSULTATION. Subjective Constitutional: Denies: no symptoms, chills, diaphoresis, fever, malaise, weakness, other HEENT: Denies: no symptoms, eye pain, blurred vision, tearing, double vision, ear pain, ear discharge, nose pain, nose congestion, throat pain, throat swelling, mouth pain, mouth swelling, other Cardiovascular: Denies: no symptoms, chest pain, edema, irregular heart rate, lightheadedness, palpitations, syncope, other Respiratory: Denies: no symptoms, cough, orthopnea, shortness of breath, SOB with excertion, SOB at rest, sputum, stridor, wheezing, other Genitourinary: Denies: no symptoms, burning, discharge, frequency, flank pain, hematuria, incontinence, pain, urgency, other Neurologic/Psychiatric: Denies: no symptoms, anxiety, depressed, emotional problems, headache, numbness, paresthesia, pre-existing deficit, seizure, tingling, tremors, weakness, other Allergies: Coded Allergies: NO KNOWN ALLERGIES (Unverified Allergy, Unknown, 10/15/15) Subjective no events, back pain persists, continues to refuse prbc transfusion Objective Last 24 Hour Vital Signs Date Time Temp Pulse Resp B/P (MAP) Pulse Ox O2 Delivery O2 Flow Rate FiO2 11/07/18 04:00 69 11/07/18 04:00 96.6 66 18 133/82 (99) 97 11/07/18 01:05 130/73 11/07/18 00:00 98.2 64 18 130/73 (92) 96 11/07/18 00:00 58 11/06/18 21:00 Nasal Cannula 3.0 11/06/18 20:17 104 20 Nasal Cannula 2.0 28 11/06/18 20:00 97.5 60 19 136/88 (104) 95 11/06/18 20:00 49 11/06/18 17:18 140/60 11/06/18 16:00 50 11/06/18 16:00 97.5 57 20 140/60 (86) 99 11/06/18 12:31 97.6 56 21 108/69 (82) 99 11/06/18 12:00 108/69 11/06/18 12:00 59 11/06/18 09:40 Nasal Cannula 2.0 11/06/18 09:01 122/72 11/06/18 09:01 65 122/72 11/06/18 09:00 65 122/72 11/06/18 08:00 55 11/06/18 08:00 97.5 65 20 122/72 (89) 99 11/06/18 07:14 98.5 75 20 137/80 100 Nasal Cannula 2.0 11/06/18 07:12 98.5 75 20 137/80 100 Nasal Cannula 2.0 Intake and Output 12/12/18 12/13/18 18:59 06:59 Intake Total 300 ml Balance 300 ml Intake Oral 300 ml Laboratory Tests 11/07/18 05:08: White Blood Count [Pending], Red Blood Count [Pending], Hemoglobin [Pending], Hematocrit [Pending], Mean Corpuscular Volume [Pending], Mean Corpuscular Hemoglobin [Pending], Mean Corpuscular Hemoglobin Concent [Pending], Red Cell Distribution Width [Pending], Platelet Count [Pending], Mean Platelet Volume [ Pending], Neutrophils (%) (Auto) [Pending], Lymphocytes (%) (Auto) [Pending], Monocytes (%) (Auto) [Pending], Eosinophils (%) (Auto) [Pending], Basophils (%) (Auto) [Pending], Sodium Level [Pending], Potassium Level [Pending], Chloride Level [Pending], Carbon Dioxide Level [Pending], Blood Urea Nitrogen [Pending], Creatinine [Pending], Estimat Glomerular Filtration Rate [Pending], Glucose Level [Pending], Hemoglobin A1c [Pending], Calcium Level [Pending], Total Bilirubin [Pending], Aspartate Amino Transf (AST/SGOT) [Pending], Alanine Aminotransferase (ALT/SGPT) [Pending], Alkaline Phosphatase [Pending], Total Protein [Pending], Albumin [Pending], Globulin [Pending], Triglycerides Level [ Pending], Cholesterol Level [Pending], LDL Cholesterol [Pending], HDL Cholesterol [Pending], Cholesterol/HDL Ratio [Pending], Thyroid Stimulating Hormone (TSH) [Pending] Height (Feet): 5 Height (Inches): 9.00 Weight (Pounds): 332 General Appearance: no apparent distress Objective PHYSICAL EXAMINATION: VITAL SIGNS: Have been reviewed. GENERAL: The patient awake, alert, in mild distress. HEENT: Extraocular muscles intact. No lymphadenopathy noted. CARDIOVASCULAR: S1 and S2. No rubs or gallops. PULMONARY: Clear to auscultation bilaterally. No rales, rhonchi or wheezes. ABDOMINAL: Obese, nondistended and nontender. EXTREMITIES: 1-2+ pitting edema. Malick Lizama MD Nov 07, 2018 06:36
[2018-11-07] MEDS: Calcium Acetate 667mg Tab ORAL SCH (06:51)
[2018-11-07 06:52] LABS: HEMATOCRIT 22.9 % (37.0-47.0); MEAN CORPUSCULAR VOLUME 82 FL (80-99); PLATELET COUNT 247 K/UL (150-450); RED BLOOD COUNT 2.78 M/UL (4.20-5.40); RED CELL DISTRIBUTION WIDTH 21.4 % (11.6-14.8); WHITE BLOOD COUNT 9.6 K/UL (4.8-10.8)
[2018-11-07 07:08] LABS: ALANINE AMINOTRANSFERASE 25 U/L (12-78); ALBUMIN 3.8 G/DL (3.4-5.0); ALBUMIN/GLOBULIN RATIO 0.8 (1.0-2.7); ALKALINE PHOSPHATASE 296 U/L (46-116); ANION GAP 14 mmol/L (5-15); ASPARTATE AMINO TRANSFERASE 27 U/L (15-37); BILIRUBIN,TOTAL 0.7 MG/DL (0.2-1.0); BLOOD UREA NITROGEN 68 mg/dL (7-18); CALCIUM 8.5 MG/DL (8.5-10.1); CARBON DIOXIDE 22 MMOL/L (21-32); CHLORIDE 101 MMOL/L (98-107); CHOLESTEROL 63 MG/DL (< 200); CREATININE 8.9 MG/DL (0.55-1.30); HDL CHOLESTEROL 24 MG/DL (40-60); POTASSIUM 5.5 MMOL/L (3.5-5.1); SODIUM 137 MMOL/L (136-145); TRIGLYCERIDES 107 MG/DL (30-150)
[2018-11-07 07:17] LABS: HEMOGLOBIN 6.6 G/DL (12.0-16.0)
[2018-11-07 08:00] VITALS: BP 169/75
[2018-11-07] MEDS: Allopurinol 100mg Tab ORAL SCH (08:31)
[2018-11-07] MEDS: Lisinopril 2.5mg tab ORAL SCH (08:31)
[2018-11-07] MEDS: Heparin 5000 units/ml inj SUBQ SCH ×2 (08:42→21:04)
--- NOTE | 2018-11-07 10:30 | GI Progress Note ---
Assessment/Plan Problems: (1) Pancreatitis ICD Codes: K85.90 - Acute pancreatitis without necrosis or infection, unspecified SNOMED: 88061399 (2) Anemia ICD Codes: D64.9 - Anemia, unspecified SNOMED: 280596719 (3) End stage renal disease on dialysis ICD Codes: N18.6 - End stage renal failure on dialysis; Z99.2 - Dependence on renal dialysis SNOMED: 263371230 Status: unchanged Status Narrative Discussed with Dr. Garcia. Assessment/Plan Hx of recent colonoscopy at [facility] which was unremarkable s/p EGD >> gastritis, no active source of bleeding Elevated lipase Normal triglyceride levels symptomatic treatment advance diet as tolerated pain mgmt ppi zofran prn Trend lipase fu labs The patient was seen and examined at bedside and all new and available data was reviewed in the patients chart. I agree with the above findings, impression and plan. (Patient seen earlier today. Signature stamp does not reflect patient encounter time.). - Jamison Garcia MD Subjective Gastrointestinal/Abdominal: Reports: no symptoms Subjective Denies any abdominal pain, no vomiting Tolerating diet Objective Last 24 Hour Vital Signs Date Time Temp Pulse Resp B/P (MAP) Pulse Ox O2 Delivery O2 Flow Rate FiO2 11/07/18 09:00 Nasal Cannula 3.0 11/07/18 08:32 78 169/75 11/07/18 08:31 169/75 11/07/18 08:00 97.8 78 20 169/75 (106) 94 11/07/18 06:51 133/82 11/07/18 04:00 69 11/07/18 04:00 96.6 66 18 133/82 (99) 97 11/07/18 01:05 130/73 11/07/18 00:00 98.2 64 18 130/73 (92) 96 11/07/18 00:00 58 11/06/18 21:00 Nasal Cannula 3.0 11/06/18 20:17 104 20 Nasal Cannula 2.0 28 11/06/18 20:00 97.5 60 19 136/88 (104) 95 11/06/18 20:00 49 11/06/18 17:18 140/60 11/06/18 16:00 50 11/06/18 16:00 97.5 57 20 140/60 (86) 99 11/06/18 12:31 97.6 56 21 108/69 (82) 99 11/06/18 12:00 108/69 11/06/18 12:00 59 Intake and Output 11/06/18 11/07/18 19:00 07:00 Intake Total 300 ml Balance 300 ml Intake Oral 300 ml Laboratory Tests Test 11/07/18 05:08 White Blood Count 9.6 K/UL (4.8-10.8) Red Blood Count 2.78 M/UL (4.20-5.40) L Hemoglobin 6.6 G/DL (12.0-16.0) *L Hematocrit 22.9 % (37.0-47.0) L Mean Corpuscular Volume 82 FL (80-99) Mean Corpuscular Hemoglobin 23.9 PG (27.0-31.0) L Mean Corpuscular Hemoglobin Concent 29.0 G/DL (32.0-36.0) L Red Cell Distribution Width 21.4 % (11.6-14.8) H Platelet Count 247 K/UL (150-450) Mean Platelet Volume 6.9 FL (6.5-10.1) Neutrophils (%) (Auto) % (45.0-75.0) Lymphocytes (%) (Auto) % (20.0-45.0) Monocytes (%) (Auto) % (1.0-10.0) Eosinophils (%) (Auto) % (0.0-3.0) Basophils (%) (Auto) % (0.0-2.0) Differential Total Cells Counted 100 Neutrophils % (Manual) 61 % (45-75) Lymphocytes % (Manual) 21 % (20-45) Monocytes % (Manual) 8 % (1-10) Eosinophils % (Manual) 10 % (0-3) H Basophils % (Manual) 0 % (0-2) Band Neutrophils 0 % (0-8) Nucleated Red Blood Cells 3 /100 WBC Platelet Estimate Adequate Platelet Morphology Normal Polychromasia 1+ Hypochromasia 2+ Anisocytosis 3+ Tear Drop Cells 1+ Sodium Level 137 MMOL/L (136-145) Potassium Level 5.5 MMOL/L (3.5-5.1) H Chloride Level 101 MMOL/L (98-107) Carbon Dioxide Level 22 MMOL/L (21-32) Anion Gap 14 mmol/L (5-15) Blood Urea Nitrogen 68 mg/dL (7-18) H Creatinine 8.9 MG/DL (0.55-1.30) H Estimat Glomerular Filtration Rate 5.5 mL/min (>60) Glucose Level 112 MG/DL (74-106) #H Hemoglobin A1c 6.3 % (4.3-6.0) H Calcium Level 8.5 MG/DL (8.5-10.1) Total Bilirubin 0.7 MG/DL (0.2-1.0) Aspartate Amino Transf (AST/SGOT) 27 U/L (15-37) Alanine Aminotransferase (ALT/SGPT) 25 U/L (12-78) Alkaline Phosphatase 296 U/L (46-116) H Total Protein 8.7 G/DL (6.4-8.2) H Albumin 3.8 G/DL (3.4-5.0) Globulin 4.9 g/dL Albumin/Globulin Ratio 0.8 (1.0-2.7) L Triglycerides Level 107 MG/DL (30-150) Cholesterol Level 63 MG/DL (< 200) LDL Cholesterol 24 mg/dL (<100) HDL Cholesterol 24 MG/DL (40-60) L Cholesterol/HDL Ratio 2.6 (3.3-4.4) L Lipase Pending Thyroid Stimulating Hormone (TSH) 1.341 uiU/mL (0.358-3.740) Height (Feet): 5 Height (Inches): 9.00 Weight (Pounds): 332 General Appearance: WD/WN, no apparent distress, alert, obese Cardiovascular: normal rate Respiratory/Chest: normal breath sounds, no respiratory distress Abdominal Exam: normal bowel sounds, non tender, soft Extremities: non-tender Jaime Martin NP Nov 07, 2018 10:30
--- NOTE | 2018-11-07 10:58 | Infectious Diseases Prog Note ---
Assessment/Plan Assessment/Plan Abx: None Assessment: Back pain likely 2ry to acute pancreatitis- ? etiology -lipase ~1k -CXR: : Cardiac megaly and pulmonary venous congestion, similar to prior study on 10/28/2018 Afebrile No leukocytosis REcent R foot blisters/cellulitis, sp Rx -10/29 sp bedsie I+D; wound cx neg -10/25 s/p bedsdie I+D; wound cx not sent Recent polymicrobial Gram positive bacteremia- likely colonizers -10/25 BCx Neg (peripheral) -10/22 Bcx 1/ CONS, 1/ diphteroids; 10/24 2/4 S, mitis oralis (source? periheral or cental line) -2d Echo:No discrete vegetations seen, however SBE may not be excluded by transthoracic 2-D echo. Consider CLAY if clinically indicated. severe anemia ESRD on HD DM2 b/l eye blindness CHF (recent exacerbation 09/2018) bradycardia 2ry hyperparathyroidism CAD s/p stent AOCD s/p AVG w recent rupture HTN morbid obesity Plan: -Continue to monitor off abx -10/30 SP IV Vancomycin and Unasyn #7 -10/27 SP Clindamycin #3 -f/u cx -Monitor CBC/CMP, temperatures -GI f/u -wound care Thank you for this consultation. Will continue to follow along with you. Discussed with RN Subjective Allergies: Coded Allergies: NO KNOWN ALLERGIES (Unverified Allergy, Unknown, 10/15/15) Subjective afebrile at 3l NC no leukocytosis Objective Vital Signs Last 24 Hour Vital Signs Date Time Temp Pulse Resp B/P (MAP) Pulse Ox O2 Delivery O2 Flow Rate FiO2 11/07/18 09:00 Nasal Cannula 3.0 11/07/18 08:32 78 169/75 11/07/18 08:31 169/75 11/07/18 08:00 97.8 78 20 169/75 (106) 94 11/07/18 06:51 133/82 11/07/18 04:00 69 11/07/18 04:00 96.6 66 18 133/82 (99) 97 11/07/18 01:05 130/73 11/07/18 00:00 98.2 64 18 130/73 (92) 96 11/07/18 00:00 58 11/06/18 21:00 Nasal Cannula 3.0 11/06/18 20:17 104 20 Nasal Cannula 2.0 28 11/06/18 20:00 97.5 60 19 136/88 (104) 95 11/06/18 20:00 49 18 17:18 140/60 11/06/18 16:00 50 11/06/18 16:00 97.5 57 20 140/60 (86) 99 11/06/18 12:31 97.6 56 21 108/69 (82) 99 11/06/18 12:00 108/69 11/06/18 12:00 59 Height (Feet): 5 Height (Inches): 9.00 Weight (Pounds): 332 Objective General Appearance: WD/WN, no apparent distress Lines, tubes and drains: peripheral HEENT: normocephalic, atraumatic Neck: non-tender, normal alignment Respiratory/Chest: chest wall non-tender, lungs clear Cardiovascular/Chest: normal peripheral pulses Abdomen: normal bowel sounds, non tender Genitourinary/Rectal: normal genital exam Extremities: normal range of motion Microbiology Date/Time Source Procedure Growth Status 11/06/18 04:30 Rectum Received Laboratory Tests Test 11/07/18 05:08 White Blood Count 9.6 K/UL (4.8-10.8) Red Blood Count 2.78 M/UL (4.20-5.40) L Hemoglobin 6.6 G/DL (12.0-16.0) *L Hematocrit 22.9 % (37.0-47.0) L Mean Corpuscular Volume 82 FL (80-99) Mean Corpuscular Hemoglobin 23.9 PG (27.0-31.0) L Mean Corpuscular Hemoglobin Concent 29.0 G/DL (32.0-36.0) L Red Cell Distribution Width 21.4 % (11.6-14.8) H Platelet Count 247 K/UL (150-450) Mean Platelet Volume 6.9 FL (6.5-10.1) Neutrophils (%) (Auto) % (45.0-75.0) Lymphocytes (%) (Auto) % (20.0-45.0) Monocytes (%) (Auto) % (1.0-10.0) Eosinophils (%) (Auto) % (0.0-3.0) Basophils (%) (Auto) % (0.0-2.0) Differential Total Cells Counted 100 Neutrophils % (Manual) 61 % (45-75) Lymphocytes % (Manual) 21 % (20-45) Monocytes % (Manual) 8 % (1-10) Eosinophils % (Manual) 10 % (0-3) H Basophils % (Manual) 0 % (0-2) Band Neutrophils 0 % (0-8) Nucleated Red Blood Cells 3 /100 WBC Platelet Estimate Adequate Platelet Morphology Normal Polychromasia 1+ Hypochromasia 2+ Anisocytosis 3+ Tear Drop Cells 1+ Sodium Level 137 MMOL/L (136-145) Potassium Level 5.5 MMOL/L (3.5-5.1) H Chloride Level 101 MMOL/L (98-107) Carbon Dioxide Level 22 MMOL/L (21-32) Anion Gap 14 mmol/L (5-15) Blood Urea Nitrogen 68 mg/dL (7-18) H Creatinine 8.9 MG/DL (0.55-1.30) H Estimat Glomerular Filtration Rate 5.5 mL/min (>60) Glucose Level 112 MG/DL (74-106) #H Hemoglobin A1c 6.3 % (4.3-6.0) H Calcium Level 8.5 MG/DL (8.5-10.1) Total Bilirubin 0.7 MG/DL (0.2-1.0) Aspartate Amino Transf (AST/SGOT) 27 U/L (15-37) Alanine Aminotransferase (ALT/SGPT) 25 U/L (12-78) Alkaline Phosphatase 296 U/L (46-116) H Total Protein 8.7 G/DL (6.4-8.2) H Albumin 3.8 G/DL (3.4-5.0) Globulin 4.9 g/dL Albumin/Globulin Ratio 0.8 (1.0-2.7) L Triglycerides Level 107 MG/DL (30-150) Cholesterol Level 63 MG/DL (< 200) LDL Cholesterol 24 mg/dL (<100) HDL Cholesterol 24 MG/DL (40-60) L Cholesterol/HDL Ratio 2.6 (3.3-4.4) L Lipase 1086 U/L (73-393) H Thyroid Stimulating Hormone (TSH) 1.341 uiU/mL (0.358-3.740) Current Medications Medications (Trade) Dose Ordered Sig/Josi Route PRN Reason Start Time Stop Time Status Last Admin Dose Admin Acetaminophen (Tylenol) 650 mg Q4H PRN ORAL Mild Pain/Temp > 100.5 11/06/18 06:15 12/06/18 06:14 Al Hydroxide/Mg Hydroxide (Mylanta II) 30 ml Q6H PRN ORAL dyspepsia 11/06/18 06:15 12/06/18 06:14 Albuterol Sulfate (Proventil) 2.5 mg Q6H PRN HHN Shortness of Breath 11/06/18 06:15 11/11/18 06:14 Albuterol/ Ipratropium (Albuterol/ Ipratropium) 3 ml Q6H PRN HHN dyspnea 11/06/18 06:15 11/11/18 06:14 Allopurinol (Zyloprim) 100 mg DAILY ORAL 11/06/18 09:00 12/06/18 08:59 11/07/18 08:31 Amlodipine Besylate (Norvasc) 2.5 mg DAILY ORAL 11/06/18 09:00 12/06/18 08:59 11/07/18 08:32 Atorvastatin Calcium (Lipitor) 20 mg BEDTIME ORAL 11/06/18 21:00 12/06/18 20:59 11/06/18 20:45 Calcium Acetate (Phoslo) 667 mg EVERY 8 HOURS ORAL 11/06/18 14:00 12/06/18 13:59 11/07/18 06:51 Clonidine HCl (Catapres Tab) 0.1 mg Q4H PRN ORAL For High Blood Pressure 11/06/18 06:15 12/06/18 06:14 Dextrose (Dextrose 50%) STAT PRN IV Hypoglycemia 11/06/18 06:15 12/06/18 06:14 Epoetin Jose De Jesus (Procrit (for ESRD on dialysis)) 7,000 units MON-WED-FRI SUBQ 11/06/18 21:00 12/06/18 20:59 11/06/18 20:45 Furosemide (Lasix) 100 mg EVERY 8 HOURS PRN IV dyspnea 11/06/18 06:15 12/06/18 06:14 Gabapentin (Neurontin) 400 mg TWICE A DAY ORAL 11/06/18 09:00 12/06/18 08:59 11/07/18 08:32 Heparin Sodium (Porcine) (Heparin 5000 units/ml) 5,000 units EVERY 12 HOURS SUBQ 11/06/18 09:00 12/06/18 08:59 11/07/18 08:42 Hydralazine HCl (Apresoline) 10 mg EVERY 6 HOURS ORAL 11/06/18 12:00 12/06/18 11:59 11/07/18 06:51 Insulin Aspart (NovoLOG) BEFORE MEALS AND HS SUBQ 11/06/18 07:30 12/06/18 07:29 11/06/18 16:49 Lisinopril (Zestril) 5 mg DAILY ORAL 11/06/18 09:00 12/06/18 08:59 11/07/18 08:31 Morphine Sulfate (Morphine Sulfate) 1 mg Q4H PRN IVP FOR SEVERE PAIN (7-10) 11/06/18 07:15 11/13/18 06:14 Ondansetron HCl (Zofran) 4 mg Q6H PRN IVP Nausea & Vomiting 11/06/18 06:15 12/06/18 06:14 Polyethylene Glycol (Miralax) 17 gm HSPRN PRN ORAL Constipation 11/06/18 06:15 12/06/18 06:14 Sevelamer Carbonate (Renvela) 800 mg THREE TIMES A DAY ORAL 11/06/18 09:00 12/06/18 08:59 11/07/18 08:31 Tramadol HCl (Ultram) 50 mg Q6H PRN ORAL FOR MODERATE PAIN (4-6) 11/06/18 06:15 11/13/18 06:14 11/06/18 20:49 Zolpidem Tartrate (Ambien) 5 mg HSPRN PRN ORAL Insomnia 11/06/18 06:15 11/13/18 06:14 Susi Vanegas M.D. Nov 07, 2018 10:58
--- NOTE | 2018-11-07 11:16 | Consultation ---
Consult Note Consult Note asked to eval by Dr Henning for dialysis management Patient is a 63-year-old female brought in by EMS after increased low back pain. Patient prior history of end-stage renal disease and is on dialysis. Patient had recently been discharged from the hospital to a nursing facility. The patient subsequently signed out against medical advise from his nursing facility. Patient states that she had been having increased pain. The patient reported previously noted to be due to [employer]. The prior laboratory testing was notable for anemia. Hx Hypertension: Yes Hx Pacemaker: No Hx Asthma: Yes Hx COPD: Yes Hx Diabetes: Yes - Blind Hx Gastrointestinal Problems: Yes Hx Dialysis: Yes - Hx Neurological Problems: No Hx Peripheral Neuropathy: Yes - secondary to DM Hx Tremors: Yes Hx Vertigo: Yes Hx Dizziness: Yes Hx Syncope: Yes Hx Headaches: Yes Hx Weakness: Yes Hx Fatigue: Yes examined data reviewed Assessment/Plan ESRD on HD PermCath placement. left Anemia of CKD DM2 b/l eye blindness CHF (recent exacerbation 09/2018) bradycardia 2ry hyperparathyroidism CAD s/p stent AOCD s/p AVG w recent rupture HTN morbid obesity Right lateral midfoot wound: Wound base is granular, superficial only dermal exposed. No acute SOI. No active purulent drainage. Allegra-wound margins are WNL. Right plantar hallux: Wound base is granular, superficial only dermal exposed. No acute SOI. No active purulent drainage. Allegra-wound margins are WNL. Plan Dialysis- Adjust BP meds per orders Bryan Hunter MD Nov 07, 2018 11:16
[2018-11-07 12:00] VITALS: BP 134/56
[2018-11-07] MEDS: Docusate 100mg cap ORAL SCH ×2 (12:14→18:00)
[2018-11-07] MEDS: traMADol 50mg tab ORAL PRN ×2 (12:23→21:02)
--- NOTE | 2018-11-07 12:25 | Diagnostic Imaging Report ---
Indication: Open wound on dorsal foot and on great toe Technique: Sagittal and coronal T1 fast spin echo and fast spin echo STIR images obtained of the right forefoot. Patient unable to hold still for axial acquisitions Comparison: Foot radiograph dated 10/24/2018 Findings: Exam is very limited, due to incomplete availability of sequences, motion artifact on coronal images. There is considerable edema of the dorsal subcutaneous fat. No definite focal drainable fluid collection demonstrated. No definite osseous marrow signal abnormality is demonstrated. Impression: Very limited exam, as described No definite evidence of osteomyelitis. However, this is difficult to exclude with confidence given the limitations exam Dorsal soft tissue edema. No definite focal drainable abscess
[2018-11-07 12:53] LABS: PHOSPHORUS 6.6 MG/DL (2.5-4.9)
--- NOTE | 2018-11-07 13:45 | General Progress Note ---
Assessment/Plan Problem List: (1) Congestive heart failure (CHF) ICD Codes: I50.9 - Heart failure, unspecified SNOMED: 89989175 (2) Open wound of right great toe ICD Codes: S91.101A - Unspecified open wound of right great toe without damage to nail, initial encounter SNOMED: 605749869 (3) Back pain ICD Codes: M54.9 - Dorsalgia, unspecified SNOMED: 644680219 (4) General weakness ICD Codes: R53.1 - Weakness SNOMED: 02548523 (5) ESRD (end stage renal disease) on dialysis ICD Codes: N18.6 - End stage renal disease; Z99.2 - Dependence on renal dialysis SNOMED: 345339244 (6) Diabetes mellitus type 2 with neurological manifestations ICD Codes: E11.49 - Type 2 diabetes mellitus with other diabetic neurological complication SNOMED: 80011515, 944787178 (7) Anemia ICD Codes: D64.9 - Anemia, unspecified SNOMED: 062407357 (8) Intractable back pain ICD Codes: M54.9 - Dorsalgia, unspecified SNOMED: 269685624 (9) Pancreatitis ICD Codes: K85.90 - Acute pancreatitis without necrosis or infection, unspecified SNOMED: 33405016 (10) Hypertension ICD Codes: I10 - Essential (primary) hypertension SNOMED: 06414597 (11) Morbid obesity ICD Codes: E66.01 - Morbid (severe) obesity due to excess calories SNOMED: 313109189, 17982005596614 Status: unchanged Assessment/Plan o2 pulm tx abx wound care dialysis cbc bmp am Subjective Constitutional: Reports: weakness Respiratory: Reports: shortness of breath Allergies: Coded Allergies: NO KNOWN ALLERGIES (Unverified Allergy, Unknown, 10/15/15) All Systems: reviewed and negative except above Subjective o2nc eating Objective Last 24 Hour Vital Signs Date Time Temp Pulse Resp B/P (MAP) Pulse Ox O2 Delivery O2 Flow Rate FiO2 11/07/18 12:00 62 11/07/18 12:00 97.2 63 20 134/56 (82) 97 11/07/18 12:00 134/56 11/07/18 09:00 Nasal Cannula 3.0 11/07/18 08:32 78 169/75 11/07/18 08:31 169/75 11/07/18 08:00 74 11/07/18 08:00 97.8 78 20 169/75 (106) 94 11/07/18 06:51 133/82 11/07/18 04:00 69 11/07/18 04:00 96.6 66 18 133/82 (99) 97 11/07/18 01:05 130/73 11/07/18 00:00 98.2 64 18 130/73 (92) 96 11/07/18 00:00 58 11/06/18 21:00 Nasal Cannula 3.0 11/06/18 20:17 104 20 Nasal Cannula 2.0 28 11/06/18 20:00 97.5 60 19 136/88 (104) 95 11/06/18 20:00 49 11/06/18 17:18 140/60 11/06/18 16:00 50 11/06/18 16:00 97.5 57 20 140/60 (86) 99 Intake and Output 11/06/18 11/07/18 19:00 07:00 Intake Total 300 ml Balance 300 ml Intake Oral 300 ml Laboratory Tests 11/07/18 05:08: White Blood Count 9.6, Red Blood Count 2.78L, Hemoglobin 6.6*L, Hematocrit 22.9L , Mean Corpuscular Volume 82, Mean Corpuscular Hemoglobin 23.9L, Mean Corpuscular Hemoglobin Concent 29.0L, Red Cell Distribution Width 21.4H, Platelet Count 247, Mean Platelet Volume 6.9, Neutrophils (%) (Auto) , Lymphocytes (%) (Auto) , Monocytes (%) (Auto) , Eosinophils (%) (Auto) , Basophils (%) (Auto) , Differential Total Cells Counted 100, Neutrophils % ( Manual) 61, Lymphocytes % (Manual) 21, Monocytes % (Manual) 8, Eosinophils % ( Manual) 10H, Basophils % (Manual) 0, Band Neutrophils 0, Nucleated Red Blood Cells 3, Platelet Estimate Adequate, Platelet Morphology Normal, Polychromasia 1 +, Hypochromasia 2+, Anisocytosis 3+, Tear Drop Cells 1+, Sodium Level 137, Potassium Level 5.5H, Chloride Level 101, Carbon Dioxide Level 22, Anion Gap 14 , Blood Urea Nitrogen 68H, Creatinine 8.9H, Estimat Glomerular Filtration Rate 5.5, Glucose Level 112#H, Hemoglobin A1c 6.3H, Uric Acid 6.0, Calcium Level 8.5 , Phosphorus Level 6.6H, Magnesium Level 2.7H, Total Bilirubin 0.7, Aspartate Amino Transf (AST/SGOT) 27, Alanine Aminotransferase (ALT/SGPT) 25, Alkaline Phosphatase 296H, Total Protein 8.7H, Albumin 3.8, Globulin 4.9, Albumin/ Globulin Ratio 0.8L, Triglycerides Level 107, Cholesterol Level 63, LDL Cholesterol 24, HDL Cholesterol 24L, Cholesterol/HDL Ratio 2.6L, Lipase 1086H, Thyroid Stimulating Hormone (TSH) 1.341 Height (Feet): 5 Height (Inches): 9.00 Weight (Pounds): 332 General Appearance: lethargic EENT: normal ENT inspection Neck: normal alignment Cardiovascular: normal peripheral pulses, normal rate, regular rhythm Respiratory/Chest: chest wall non-tender, decreased breath sounds Abdomen: normal bowel sounds, non tender, soft Extremities: normal inspection Edema: 1+ Arm (L), 1+ Arm (R), 1+ Leg (L), 1+ Leg (R), 1+ Pedal (L), 1+ Pedal ( R), 1+ Generalized Edema: trace edema Neurologic: motor weakness Skin: normal pigmentation, warm/dry Roderick Henning DO Nov 07, 2018 13:45
--- NOTE | 2018-11-07 14:02 | Podiatric Progress Note ---
Assessment/Plan Patient Tawny Frias is a 63 year old female who was admitted on Nov 06, 2018 at 03:53 with Assessment/Plan A: Right foot superficial ulcerations. Stable. No acute SOI. ESRD on HD DM2 b/l eye blindness CHF (recent exacerbation 09/2018) bradycardia 2ry hyperparathyroidism CAD s/p stent AOCD s/p AVG w recent rupture HTN morbid obesity P: - Pt seen and evaluated. - Chart reviewed. - Temp, 97.2 - WBC, 9.6 - Right foot XR ordered. Will await results. - Right foot MRI completed, report negative for any acute abscess formation or OM. - Based on clinical and imaging exam findings, not acute surgical intervention required at this time. - Cont local wound care daily: betadine to areas of ulcerations, xeroform, 4 x 4 gauze, ABD pad. Kerlix. - I believe these wounds are pressure related pt rests at bedside with external rotation of legs increasing pressure to areas of ulceration. - Pod will cont to monitor. Subjective ROS Limited/Unobtainable: Yes Allergies: Coded Allergies: NO KNOWN ALLERGIES (Unverified Allergy, Unknown, 10/15/15) Subjective S: Pt seen bedside for Right foot wound dorsal lateral MF and medial hallux. Pt resting at bedside, NAD. No new pedal complaints to B/L LE. Objective Exam Last 24 Hour Vital Signs Date Time Temp Pulse Resp B/P (MAP) Pulse Ox O2 Delivery O2 Flow Rate FiO2 11/07/18 12:00 62 11/07/18 12:00 97.2 63 20 134/56 (82) 97 11/07/18 12:00 134/56 11/07/18 09:00 Nasal Cannula 3.0 11/07/18 08:32 78 169/75 11/07/18 08:31 169/75 11/07/18 08:00 74 11/07/18 08:00 97.8 78 20 169/75 (106) 94 11/07/18 06:51 133/82 11/07/18 04:00 69 11/07/18 04:00 96.6 66 18 133/82 (99) 97 11/07/18 01:05 130/73 11/07/18 00:00 98.2 64 18 130/73 (92) 96 11/07/18 00:00 58 11/06/18 21:00 Nasal Cannula 3.0 11/06/18 20:17 104 20 Nasal Cannula 2.0 28 11/06/18 20:00 97.5 60 19 136/88 (104) 95 11/06/18 20:00 49 18 17:18 140/60 11/06/18 16:00 50 11/06/18 16:00 97.5 57 20 140/60 (86) 99 Laboratory Tests Test 11/07/18 05:08 White Blood Count 9.6 K/UL (4.8-10.8) Red Blood Count 2.78 M/UL (4.20-5.40) L Hemoglobin 6.6 G/DL (12.0-16.0) *L Hematocrit 22.9 % (37.0-47.0) L Mean Corpuscular Volume 82 FL (80-99) Mean Corpuscular Hemoglobin 23.9 PG (27.0-31.0) L Mean Corpuscular Hemoglobin Concent 29.0 G/DL (32.0-36.0) L Red Cell Distribution Width 21.4 % (11.6-14.8) H Platelet Count 247 K/UL (150-450) Mean Platelet Volume 6.9 FL (6.5-10.1) Neutrophils (%) (Auto) % (45.0-75.0) Lymphocytes (%) (Auto) % (20.0-45.0) Monocytes (%) (Auto) % (1.0-10.0) Eosinophils (%) (Auto) % (0.0-3.0) Basophils (%) (Auto) % (0.0-2.0) Differential Total Cells Counted 100 Neutrophils % (Manual) 61 % (45-75) Lymphocytes % (Manual) 21 % (20-45) Monocytes % (Manual) 8 % (1-10) Eosinophils % (Manual) 10 % (0-3) H Basophils % (Manual) 0 % (0-2) Band Neutrophils 0 % (0-8) Nucleated Red Blood Cells 3 /100 WBC Platelet Estimate Adequate Platelet Morphology Normal Polychromasia 1+ Hypochromasia 2+ Anisocytosis 3+ Tear Drop Cells 1+ Sodium Level 137 MMOL/L (136-145) Potassium Level 5.5 MMOL/L (3.5-5.1) H Chloride Level 101 MMOL/L (98-107) Carbon Dioxide Level 22 MMOL/L (21-32) Anion Gap 14 mmol/L (5-15) Blood Urea Nitrogen 68 mg/dL (7-18) H Creatinine 8.9 MG/DL (0.55-1.30) H Estimat Glomerular Filtration Rate 5.5 mL/min (>60) Glucose Level 112 MG/DL (74-106) #H Hemoglobin A1c 6.3 % (4.3-6.0) H Uric Acid 6.0 MG/DL (2.6-7.2) Calcium Level 8.5 MG/DL (8.5-10.1) Phosphorus Level 6.6 MG/DL (2.5-4.9) H Magnesium Level 2.7 MG/DL (1.8-2.4) H Total Bilirubin 0.7 MG/DL (0.2-1.0) Aspartate Amino Transf (AST/SGOT) 27 U/L (15-37) Alanine Aminotransferase (ALT/SGPT) 25 U/L (12-78) Alkaline Phosphatase 296 U/L (46-116) H Total Protein 8.7 G/DL (6.4-8.2) H Albumin 3.8 G/DL (3.4-5.0) Globulin 4.9 g/dL Albumin/Globulin Ratio 0.8 (1.0-2.7) L Triglycerides Level 107 MG/DL (30-150) Cholesterol Level 63 MG/DL (< 200) LDL Cholesterol 24 mg/dL (<100) HDL Cholesterol 24 MG/DL (40-60) L Cholesterol/HDL Ratio 2.6 (3.3-4.4) L Lipase 1086 U/L (73-393) H Thyroid Stimulating Hormone (TSH) 1.341 uiU/mL (0.358-3.740) Microbiology Date/Time Source Procedure Growth Status 11/06/18 04:30 Rectum Received Exam Narrative O: - Focused RLE Right lateral midfoot wound: Wound base is granular, superficial only dermal exposed. No acute SOI. No active purulent drainage. Allegra-wound margins are WNL. Moderate edema noted to Forefoot. Right plantar hallux: Wound base is granular, superficial only dermal exposed. No acute SOI. No active purulent drainage. Allegra-wound margins are WNL. Moderate edema noted to Forefoot. Neurological Neurological Narrative O: - Focused RLE Right lateral midfoot wound: Wound base is granular, superficial only dermal exposed. No acute SOI. No active purulent drainage. Allegra-wound margins are WNL. Moderate edema noted to Forefoot. Right plantar hallux: Wound base is granular, superficial only dermal exposed. No acute SOI. No active purulent drainage. Allegra-wound margins are WNL. Moderate edema noted to Forefoot. Dermatological Dermatological: within nl limits Gerry Jean DPM Nov 07, 2018 14:02
--- NOTE | 2018-11-07 14:58 | Cardiology Report ---
APPROVED REPORT EKG Measurement Heart [id number] Sinus bradycardia with 1st degree AV block with occasional premature ventricular complexes Low voltage QRS Cannot rule out Inferior infarct, age undetermined Cannot rule out Anterior infarct, age undetermined Abnormal ECG
--- NOTE | 2018-11-07 15:00 | Cardiac Electrophysiology PN ---
Assessment/Plan Assessment/Plan 1. Hypertension. On Norvasc 5 mg daily and lisinopril 5 mg daily and HD 2. Bradycardia. Discontinued Coreg 3. Recurrent nonsustained ventricular tachycardia . Nuclear stress test at [facility] on 10/25/2018 showed no evidence of ischemia. 4. Hyperlipidemia. 5. History of positive blood cultures and right toe blisters, status post surgery for podiatry debridement. 6. Diabetes. 7. Congestive heart failure with diastolic dysfunction with an ejection fraction 55%. 8. ESRD on HD Subjective Subjective No lianne overnight . Remained in SR with occasional PACs and PVCs. Objective Last 24 Hour Vital Signs Date Time Temp Pulse Resp B/P (MAP) Pulse Ox O2 Delivery O2 Flow Rate FiO2 11/07/18 12:00 62 11/07/18 12:00 97.2 63 20 134/56 (82) 97 11/07/18 12:00 134/56 11/07/18 09:00 Nasal Cannula 3.0 11/07/18 08:32 78 169/75 11/07/18 08:31 169/75 11/07/18 08:00 74 11/07/18 08:00 97.8 78 20 169/75 (106) 94 11/07/18 06:51 133/82 11/07/18 04:00 69 11/07/18 04:00 96.6 66 18 133/82 (99) 97 11/07/18 01:05 130/73 11/07/18 00:00 98.2 64 18 130/73 (92) 96 11/07/18 00:00 58 11/06/18 21:00 Nasal Cannula 3.0 11/06/18 20:17 104 20 Nasal Cannula 2.0 28 11/06/18 20:00 97.5 60 19 136/88 (104) 95 11/06/18 20:00 49 11/06/18 17:18 140/60 11/06/18 16:00 50 11/06/18 16:00 97.5 57 20 140/60 (86) 99 Intake and Output 11/06/18 11/07/18 19:00 07:00 Intake Total 300 ml Balance 300 ml Intake Oral 300 ml Laboratory Tests Test 11/07/18 05:08 White Blood Count 9.6 K/UL (4.8-10.8) Red Blood Count 2.78 M/UL (4.20-5.40) L Hemoglobin 6.6 G/DL (12.0-16.0) *L Hematocrit 22.9 % (37.0-47.0) L Mean Corpuscular Volume 82 FL (80-99) Mean Corpuscular Hemoglobin 23.9 PG (27.0-31.0) L Mean Corpuscular Hemoglobin Concent 29.0 G/DL (32.0-36.0) L Red Cell Distribution Width 21.4 % (11.6-14.8) H Platelet Count 247 K/UL (150-450) Mean Platelet Volume 6.9 FL (6.5-10.1) Neutrophils (%) (Auto) % (45.0-75.0) Lymphocytes (%) (Auto) % (20.0-45.0) Monocytes (%) (Auto) % (1.0-10.0) Eosinophils (%) (Auto) % (0.0-3.0) Basophils (%) (Auto) % (0.0-2.0) Differential Total Cells Counted 100 Neutrophils % (Manual) 61 % (45-75) Lymphocytes % (Manual) 21 % (20-45) Monocytes % (Manual) 8 % (1-10) Eosinophils % (Manual) 10 % (0-3) H Basophils % (Manual) 0 % (0-2) Band Neutrophils 0 % (0-8) Nucleated Red Blood Cells 3 /100 WBC Platelet Estimate Adequate Platelet Morphology Normal Polychromasia 1+ Hypochromasia 2+ Anisocytosis 3+ Tear Drop Cells 1+ Sodium Level 137 MMOL/L (136-145) Potassium Level 5.5 MMOL/L (3.5-5.1) H Chloride Level 101 MMOL/L (98-107) Carbon Dioxide Level 22 MMOL/L (21-32) Anion Gap 14 mmol/L (5-15) Blood Urea Nitrogen 68 mg/dL (7-18) H Creatinine 8.9 MG/DL (0.55-1.30) H Estimat Glomerular Filtration Rate 5.5 mL/min (>60) Glucose Level 112 MG/DL (74-106) #H Hemoglobin A1c 6.3 % (4.3-6.0) H Uric Acid 6.0 MG/DL (2.6-7.2) Calcium Level 8.5 MG/DL (8.5-10.1) Phosphorus Level 6.6 MG/DL (2.5-4.9) H Magnesium Level 2.7 MG/DL (1.8-2.4) H Total Bilirubin 0.7 MG/DL (0.2-1.0) Aspartate Amino Transf (AST/SGOT) 27 U/L (15-37) Alanine Aminotransferase (ALT/SGPT) 25 U/L (12-78) Alkaline Phosphatase 296 U/L (46-116) H Total Protein 8.7 G/DL (6.4-8.2) H Albumin 3.8 G/DL (3.4-5.0) Globulin 4.9 g/dL Albumin/Globulin Ratio 0.8 (1.0-2.7) L Triglycerides Level 107 MG/DL (30-150) Cholesterol Level 63 MG/DL (< 200) LDL Cholesterol 24 mg/dL (<100) HDL Cholesterol 24 MG/DL (40-60) L Cholesterol/HDL Ratio 2.6 (3.3-4.4) L Lipase 1086 U/L (73-393) H Thyroid Stimulating Hormone (TSH) 1.341 uiU/mL (0.358-3.740) Microbiology Date/Time Source Procedure Growth Status 11/06/18 04:30 Rectum Received Objective HEAD AND NECK: No JVD. LUNGS: Coarse rhonchi. CARDIOVASCULAR: Regular S1 and S2 with no gallop or murmur. ABDOMEN: Soft. EXTREMITIES: A 1+ pitting edema. Shalom Vinson MD Nov 07, 2018 15:00
--- NOTE | 2018-11-07 15:04 | Diagnostic Imaging Report ---
Indication: Foot pain Technique: 3 views right foot Comparison: 10/24/2018 radiograph, also MRI earlier today Findings: Bones are osteoporotic. There is hallux valgus and metatarsus adductus. No acute fractures. No dislocations. No definite osseous erosions. There are degenerative changes of the first metatarsophalangeal joint No significant interim change Impression: No acute bony trauma Osteoporosis
[2018-11-07 16:00] VITALS: BP 143/76
[2018-11-07 20:00] VITALS: BP 145/90
[2018-11-07] MEDS: Zolpidem 5mg tab ORAL PRN (21:03)
[2018-11-08] VITALS: BP 119/74
[2018-11-08] MEDS: HydrALAZINE 10mg Tab ORAL SCH ×3 (02:14→11:51)
[2018-11-08 04:00] VITALS: BP 143/70
[2018-11-08] MEDS: NovoLOG Insulin Flexpen SUBQ SCH ×4 (05:41→21:17)
[2018-11-08 07:15] LABS: HEMOGLOBIN 7.1 G/DL (12.0-16.0); MEAN CORPUSCULAR VOLUME 82 FL (80-99); PLATELET COUNT 220 K/UL (150-450); RED BLOOD COUNT 2.92 M/UL (4.20-5.40); RED CELL DISTRIBUTION WIDTH 21.8 % (11.6-14.8); WHITE BLOOD COUNT 9.3 K/UL (4.8-10.8)
[2018-11-08 07:25] LABS: ALANINE AMINOTRANSFERASE 23 U/L (12-78); ALBUMIN 3.8 G/DL (3.4-5.0); ALBUMIN/GLOBULIN RATIO 0.8 (1.0-2.7); ALKALINE PHOSPHATASE 293 U/L (46-116); ANION GAP 12 mmol/L (5-15); ASPARTATE AMINO TRANSFERASE 25 U/L (15-37); BILIRUBIN,TOTAL 0.7 MG/DL (0.2-1.0); BLOOD UREA NITROGEN 62 mg/dL (7-18); CALCIUM 8.9 MG/DL (8.5-10.1); CARBON DIOXIDE 24 MMOL/L (21-32); CHLORIDE 100 MMOL/L (98-107); CREATININE 8.6 MG/DL (0.55-1.30); POTASSIUM 5.3 MMOL/L (3.5-5.1); SODIUM 136 MMOL/L (136-145)
[2018-11-08 08:00] VITALS: BP 103/62
[2018-11-08 08:00] LABS: PHOSPHORUS 5.9 MG/DL (2.5-4.9)
[2018-11-08] MEDS ORDERED: Lisinopril 2.5mg tab ORAL SCH (09:00)
[2018-11-08] MEDS: Docusate 100mg cap ORAL SCH ×3 (10:01→17:46)
[2018-11-08] MEDS: Heparin 5000 units/ml inj SUBQ SCH ×2 (10:05→21:16)
--- NOTE | 2018-11-08 10:43 | GI Progress Note ---
Assessment/Plan Problems: (1) Pancreatitis ICD Codes: K85.90 - Acute pancreatitis without necrosis or infection, unspecified SNOMED: 96412017 (2) Anemia ICD Codes: D64.9 - Anemia, unspecified SNOMED: 196155194 (3) End stage renal disease on dialysis ICD Codes: N18.6 - End stage renal failure on dialysis; Z99.2 - Dependence on renal dialysis SNOMED: 921712459 Status: unchanged Status Narrative Discussed with Dr. Garcia Assessment/Plan Hx of recent colonoscopy at [facility] which was unremarkable s/p EGD >> gastritis, no active source of bleeding Elevated lipase Normal triglyceride levels CTAP ordered, pancreatic protocol advance diet as tolerated pain mgmt ppi zofran prn Trend lipase fu labs, SASKIA, IgG1-4 The patient was seen and examined at bedside and all new and available data was reviewed in the patients chart. I agree with the above findings, impression and plan. (Patient seen earlier today. Signature stamp does not reflect patient encounter time.). - Jamison Garcia MD Subjective Subjective Patient has generalized abdominal pain, unspecified Tolerating diet Objective Last 24 Hour Vital Signs Date Time Temp Pulse Resp B/P (MAP) Pulse Ox O2 Delivery O2 Flow Rate FiO2 11/08/18 10:03 88 103/62 11/08/18 10:02 103/62 11/08/18 08:24 88 18 Room Air 21 11/08/18 08:00 96.3 71 18 103/62 (76) 100 11/08/18 05:42 143/70 11/08/18 04:00 99.0 67 18 143/70 (94) 98 11/08/18 04:00 63 11/08/18 02:14 144/72 11/08/18 00:00 59 11/08/18 00:00 98.1 64 18 119/74 (89) 98 11/07/18 21:00 Nasal Cannula 3.0 11/07/18 20:00 74 11/07/18 20:00 99.1 81 20 145/90 (108) 97 11/07/18 19:25 72 20 Room Air 21 11/07/18 18:00 143/76 11/07/18 16:00 59 11/07/18 16:00 97.8 66 20 143/76 (98) 97 11/07/18 12:00 62 11/07/18 12:00 97.2 63 20 134/56 (82) 97 11/07/18 12:00 134/56 Intake and Output 11/07/18 11/08/18 19:00 07:00 Intake Total 400 ml 350 ml Output Total 2000 ml Balance 400 ml -1650 ml Intake Oral 400 ml 350 ml Output Hemodialysis UF 2000 ml Laboratory Tests Test 11/08/18 05:50 White Blood Count 9.3 K/UL (4.8-10.8) Red Blood Count 2.92 M/UL (4.20-5.40) L Hemoglobin 7.1 G/DL (12.0-16.0) L Hematocrit 24.0 % (37.0-47.0) L Mean Corpuscular Volume 82 FL (80-99) Mean Corpuscular Hemoglobin 24.2 PG (27.0-31.0) L Mean Corpuscular Hemoglobin Concent 29.4 G/DL (32.0-36.0) L Red Cell Distribution Width 21.8 % (11.6-14.8) H Platelet Count 220 K/UL (150-450) Mean Platelet Volume 6.9 FL (6.5-10.1) Neutrophils (%) (Auto) % (45.0-75.0) Lymphocytes (%) (Auto) % (20.0-45.0) Monocytes (%) (Auto) % (1.0-10.0) Eosinophils (%) (Auto) % (0.0-3.0) Basophils (%) (Auto) % (0.0-2.0) Differential Total Cells Counted 100 Neutrophils % (Manual) 48 % (45-75) Lymphocytes % (Manual) 17 % (20-45) L Monocytes % (Manual) 12 % (1-10) H Eosinophils % (Manual) 22 % (0-3) H Basophils % (Manual) 1 % (0-2) Band Neutrophils 0 % (0-8) Nucleated Red Blood Cells 2 /100 WBC Platelet Estimate Adequate Platelet Morphology Normal Hypochromasia 3+ Anisocytosis 3+ Sodium Level 136 MMOL/L (136-145) Potassium Level 5.3 MMOL/L (3.5-5.1) H Chloride Level 100 MMOL/L (98-107) Carbon Dioxide Level 24 MMOL/L (21-32) Anion Gap 12 mmol/L (5-15) Blood Urea Nitrogen 62 mg/dL (7-18) H Creatinine 8.6 MG/DL (0.55-1.30) H Estimat Glomerular Filtration Rate 5.7 mL/min (>60) Glucose Level 101 MG/DL (74-106) Calcium Level 8.9 MG/DL (8.5-10.1) Phosphorus Level 5.9 MG/DL (2.5-4.9) H Magnesium Level 2.6 MG/DL (1.8-2.4) H Total Bilirubin 0.7 MG/DL (0.2-1.0) Aspartate Amino Transf (AST/SGOT) 25 U/L (15-37) Alanine Aminotransferase (ALT/SGPT) 23 U/L (12-78) Alkaline Phosphatase 293 U/L (46-116) H Total Protein 8.7 G/DL (6.4-8.2) H Albumin 3.8 G/DL (3.4-5.0) Globulin 4.9 g/dL Albumin/Globulin Ratio 0.8 (1.0-2.7) L Lipase 1262 U/L (73-393) H Height (Feet): 5 Height (Inches): 9.00 Weight (Pounds): 332 General Appearance: WD/WN, no apparent distress, alert, morbidly obese Cardiovascular: normal rate Respiratory/Chest: normal breath sounds, no respiratory distress Abdominal Exam: normal bowel sounds, non tender, soft Extremities: non-tender Jaime Martin NP Nov 08, 2018 10:43
--- NOTE | 2018-11-08 11:33 | General Progress Note ---
Assessment/Plan Problem List: (1) Congestive heart failure (CHF) ICD Codes: I50.9 - Heart failure, unspecified SNOMED: 84041052 (2) Open wound of right great toe ICD Codes: S91.101A - Unspecified open wound of right great toe without damage to nail, initial encounter SNOMED: 837797430 (3) Back pain ICD Codes: M54.9 - Dorsalgia, unspecified SNOMED: 384015207 (4) General weakness ICD Codes: R53.1 - Weakness SNOMED: 44945066 (5) ESRD (end stage renal disease) on dialysis ICD Codes: N18.6 - End stage renal disease; Z99.2 - Dependence on renal dialysis SNOMED: 514440902 (6) Diabetes mellitus type 2 with neurological manifestations ICD Codes: E11.49 - Type 2 diabetes mellitus with other diabetic neurological complication SNOMED: 67507767, 837986550 (7) Anemia ICD Codes: D64.9 - Anemia, unspecified SNOMED: 930193737 (8) Intractable back pain ICD Codes: M54.9 - Dorsalgia, unspecified SNOMED: 954211239 (9) Pancreatitis ICD Codes: K85.90 - Acute pancreatitis without necrosis or infection, unspecified SNOMED: 52873316 (10) Hypertension ICD Codes: I10 - Essential (primary) hypertension SNOMED: 73932224 (11) Morbid obesity ICD Codes: E66.01 - Morbid (severe) obesity due to excess calories SNOMED: 410957902, 26575923247994 Status: stable, progressing Assessment/Plan o2 pulm tx abx wound care dialysis cbc bmp am dc plan w hh Subjective Constitutional: Reports: weakness Respiratory: Reports: shortness of breath Allergies: Coded Allergies: NO KNOWN ALLERGIES (Unverified Allergy, Unknown, 10/15/15) All Systems: reviewed and negative except above Subjective o2nc sleeping Objective Last 24 Hour Vital Signs Date Time Temp Pulse Resp B/P (MAP) Pulse Ox O2 Delivery O2 Flow Rate FiO2 11/08/18 10:03 88 103/62 11/08/18 10:02 103/62 11/08/18 08:24 88 18 Room Air 21 11/08/18 08:00 96.3 71 18 103/62 (76) 100 11/08/18 08:00 Nasal Cannula 3.0 12/14/18 07:49 67 11/08/18 05:42 143/70 11/08/18 04:00 99.0 67 18 143/70 (94) 98 11/08/18 04:00 63 11/08/18 02:14 144/72 11/08/18 00:00 59 11/08/18 00:00 98.1 64 18 119/74 (89) 98 11/07/18 21:00 Nasal Cannula 3.0 11/07/18 20:00 74 11/07/18 20:00 99.1 81 20 145/90 (108) 97 11/07/18 19:25 72 20 Room Air 21 11/07/18 18:00 143/76 11/07/18 16:00 59 11/07/18 16:00 97.8 66 20 143/76 (98) 97 11/07/18 12:00 62 11/07/18 12:00 97.2 63 20 134/56 (82) 97 11/07/18 12:00 134/56 Intake and Output 11/07/18 11/08/18 19:00 07:00 Intake Total 400 ml 350 ml Output Total 2000 ml Balance 400 ml -1650 ml Intake Oral 400 ml 350 ml Output Hemodialysis UF 2000 ml Laboratory Tests 11/08/18 05:50: White Blood Count 9.3, Red Blood Count 2.92L, Hemoglobin 7.1L, Hematocrit 24.0L , Mean Corpuscular Volume 82, Mean Corpuscular Hemoglobin 24.2L, Mean Corpuscular Hemoglobin Concent 29.4L, Red Cell Distribution Width 21.8H, Platelet Count 220, Mean Platelet Volume 6.9, Neutrophils (%) (Auto) , Lymphocytes (%) (Auto) , Monocytes (%) (Auto) , Eosinophils (%) (Auto) , Basophils (%) (Auto) , Differential Total Cells Counted 100, Neutrophils % ( Manual) 48, Lymphocytes % (Manual) 17L, Monocytes % (Manual) 12H, Eosinophils % (Manual) 22H, Basophils % (Manual) 1, Band Neutrophils 0, Nucleated Red Blood Cells 2, Platelet Estimate Adequate, Platelet Morphology Normal, Hypochromasia 3 +, Anisocytosis 3+, Sodium Level 136, Potassium Level 5.3H, Chloride Level 100, Carbon Dioxide Level 24, Anion Gap 12, Blood Urea Nitrogen 62H, Creatinine 8.6H , Estimat Glomerular Filtration Rate 5.7, Glucose Level 101, Calcium Level 8.9, Phosphorus Level 5.9H, Magnesium Level 2.6H, Total Bilirubin 0.7, Aspartate Amino Transf (AST/SGOT) 25, Alanine Aminotransferase (ALT/SGPT) 23, Alkaline Phosphatase 293H, Total Protein 8.7H, Albumin 3.8, Globulin 4.9, Albumin/ Globulin Ratio 0.8L, Lipase 1262H Height (Feet): 5 Height (Inches): 9.00 Weight (Pounds): 332 General Appearance: lethargic EENT: normal ENT inspection Neck: normal alignment Cardiovascular: normal peripheral pulses, normal rate, regular rhythm Respiratory/Chest: chest wall non-tender, decreased breath sounds Abdomen: normal bowel sounds, non tender, soft Extremities: normal inspection Edema: 1+ Arm (L), 1+ Arm (R), 1+ Leg (L), 1+ Leg (R), 1+ Pedal (L), 1+ Pedal ( R), 1+ Generalized Edema: trace edema Neurologic: motor weakness Skin: normal pigmentation, warm/dry Roderick Henning DO Nov 08, 2018 11:33
[2018-11-08] MEDS ORDERED: Isovue-300 100ml vial INJ PRN (11:45)
[2018-11-08 12:00] VITALS: BP 159/70
--- NOTE | 2018-11-08 12:02 | Cardiac Electrophysiology PN ---
Assessment/Plan Assessment/Plan 1. Hypertension. On Norvasc 5 mg daily, lisinopril 5 mg daily and HD 2. Bradycardia. Off Coreg 3. Recurrent nonsustained ventricular tachycardia . Nuclear stress test at [facility] on 10/25/2018 showed no evidence of ischemia. 4. Hyperlipidemia. 5. History of positive blood cultures and right toe blisters, status post surgery for podiatry debridement. 6. Diabetes. 7. Congestive heart failure with diastolic dysfunction with an ejection fraction 55%. 8. ESRD on HD 9. Abdominal pain. CT abdomen and pelvis pending Subjective Subjective Remained in SR with occasional PACs and PVCs.Had 5 beats of nonsustained VT. Had HD last night. Awaiting CT abdomen and pelvis Objective Last 24 Hour Vital Signs Date Time Temp Pulse Resp B/P (MAP) Pulse Ox O2 Delivery O2 Flow Rate FiO2 11/08/18 11:51 159/70 11/08/18 10:03 88 103/62 11/08/18 10:02 103/62 11/08/18 08:24 88 18 Room Air 21 11/08/18 08:00 96.3 71 18 103/62 (76) 100 11/08/18 08:00 Nasal Cannula 3.0 11/08/18 07:49 67 11/08/18 05:42 143/70 11/08/18 04:00 99.0 67 18 143/70 (94) 98 11/08/18 04:00 63 11/08/18 02:14 144/72 11/08/18 00:00 59 11/08/18 00:00 98.1 64 18 119/74 (89) 98 11/07/18 21:00 Nasal Cannula 3.0 11/07/18 20:00 74 11/07/18 20:00 99.1 81 20 145/90 (108) 97 11/07/18 19:25 72 20 Room Air 21 11/07/18 18:00 143/76 11/07/18 16:00 59 11/07/18 16:00 97.8 66 20 143/76 (98) 97 Intake and Output 11/07/18 11/08/18 19:00 07:00 Intake Total 400 ml 350 ml Output Total 2000 ml Balance 400 ml -1650 ml Intake Oral 400 ml 350 ml Output Hemodialysis UF 2000 ml Laboratory Tests Test 11/08/18 05:50 White Blood Count 9.3 K/UL (4.8-10.8) Red Blood Count 2.92 M/UL (4.20-5.40) L Hemoglobin 7.1 G/DL (12.0-16.0) L Hematocrit 24.0 % (37.0-47.0) L Mean Corpuscular Volume 82 FL (80-99) Mean Corpuscular Hemoglobin 24.2 PG (27.0-31.0) L Mean Corpuscular Hemoglobin Concent 29.4 G/DL (32.0-36.0) L Red Cell Distribution Width 21.8 % (11.6-14.8) H Platelet Count 220 K/UL (150-450) Mean Platelet Volume 6.9 FL (6.5-10.1) Neutrophils (%) (Auto) % (45.0-75.0) Lymphocytes (%) (Auto) % (20.0-45.0) Monocytes (%) (Auto) % (1.0-10.0) Eosinophils (%) (Auto) % (0.0-3.0) Basophils (%) (Auto) % (0.0-2.0) Differential Total Cells Counted 100 Neutrophils % (Manual) 48 % (45-75) Lymphocytes % (Manual) 17 % (20-45) L Monocytes % (Manual) 12 % (1-10) H Eosinophils % (Manual) 22 % (0-3) H Basophils % (Manual) 1 % (0-2) Band Neutrophils 0 % (0-8) Nucleated Red Blood Cells 2 /100 WBC Platelet Estimate Adequate Platelet Morphology Normal Hypochromasia 3+ Anisocytosis 3+ Sodium Level 136 MMOL/L (136-145) Potassium Level 5.3 MMOL/L (3.5-5.1) H Chloride Level 100 MMOL/L (98-107) Carbon Dioxide Level 24 MMOL/L (21-32) Anion Gap 12 mmol/L (5-15) Blood Urea Nitrogen 62 mg/dL (7-18) H Creatinine 8.6 MG/DL (0.55-1.30) H Estimat Glomerular Filtration Rate 5.7 mL/min (>60) Glucose Level 101 MG/DL (74-106) Calcium Level 8.9 MG/DL (8.5-10.1) Phosphorus Level 5.9 MG/DL (2.5-4.9) H Magnesium Level 2.6 MG/DL (1.8-2.4) H Total Bilirubin 0.7 MG/DL (0.2-1.0) Aspartate Amino Transf (AST/SGOT) 25 U/L (15-37) Alanine Aminotransferase (ALT/SGPT) 23 U/L (12-78) Alkaline Phosphatase 293 U/L (46-116) H Total Protein 8.7 G/DL (6.4-8.2) H Albumin 3.8 G/DL (3.4-5.0) Globulin 4.9 g/dL Albumin/Globulin Ratio 0.8 (1.0-2.7) L Lipase 1262 U/L (73-393) H Microbiology Date/Time Source Procedure Growth Status 11/06/18 04:30 Nasal Nares MRSA Culture - Final Staphylococcus Aureus - Mrsa Complete 11/06/18 04:30 Rectum - Final NO CARBAPENEM-RESISTANT ENTEROBACTERI... Complete 11/06/18 04:30 Rectum VRE Culture - Final Enterococcus Faecalis - Vre Complete Objective HEAD AND NECK: No JVD. LUNGS: Coarse rhonchi. CARDIOVASCULAR: Regular S1 and S2 with no gallop or murmur. ABDOMEN: Soft.Obese EXTREMITIES: 1+ pitting edema. Shalom Vinson MD Nov 08, 2018 12:02
--- NOTE | 2018-11-08 12:50 | Pulmonology Progress Note ---
Assessment/Plan Problems: (1) Intractable back pain (2) Lumbar radiculopathy (3) End stage renal disease on dialysis (4) Coronary artery disease (5) ESRD (end stage renal disease) on dialysis (6) Blindness of both eyes (7) Anemia Assessment/Plan symptomatic treatment pain management HD by nephrology check electrolytes Subjective ROS Limited/Unobtainable: No Interval Events: c/o pain Constitutional: Reports: no symptoms HEENT: Repors: no symptoms Allergies: Coded Allergies: NO KNOWN ALLERGIES (Unverified Allergy, Unknown, 10/15/15) Objective Last 24 Hour Vital Signs Date Time Temp Pulse Resp B/P (MAP) Pulse Ox O2 Delivery O2 Flow Rate FiO2 11/08/18 11:51 159/70 11/08/18 10:03 88 103/62 11/08/18 10:02 103/62 11/08/18 08:24 88 18 Room Air 21 11/08/18 08:00 96.3 71 18 103/62 (76) 100 11/08/18 08:00 Nasal Cannula 3.0 11/08/18 07:49 67 11/08/18 05:42 143/70 11/08/18 04:00 99.0 67 18 143/70 (94) 98 11/08/18 04:00 63 11/08/18 02:14 144/72 11/08/18 00:00 59 11/08/18 00:00 98.1 64 18 119/74 (89) 98 11/07/18 21:00 Nasal Cannula 3.0 11/07/18 20:00 74 11/07/18 20:00 99.1 81 20 145/90 (108) 97 11/07/18 19:25 72 20 Room Air 21 11/07/18 18:00 143/76 11/07/18 16:00 59 11/07/18 16:00 97.8 66 20 143/76 (98) 97 Intake and Output 11/07/18 11/08/18 19:00 07:00 Intake Total 400 ml 350 ml Output Total 2000 ml Balance 400 ml -1650 ml Intake Oral 400 ml 350 ml Output Hemodialysis UF 2000 ml General Appearance: WD/WN HEENT: normocephalic, atraumatic Respiratory/Chest: chest wall non-tender, lungs clear Cardiovascular: normal peripheral pulses, normal rate Abdomen: normal bowel sounds, soft, non tender Extremities: no cyanosis 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 Complete 11/06/18 04:30 Rectum VRE Culture - Final Enterococcus Faecalis - Vre Complete Laboratory Tests 11/08/18 05:50: White Blood Count 9.3, Red Blood Count 2.92L, Hemoglobin 7.1L, Hematocrit 24.0L , Mean Corpuscular Volume 82, Mean Corpuscular Hemoglobin 24.2L, Mean Corpuscular Hemoglobin Concent 29.4L, Red Cell Distribution Width 21.8H, Platelet Count 220, Mean Platelet Volume 6.9, Neutrophils (%) (Auto) , Lymphocytes (%) (Auto) , Monocytes (%) (Auto) , Eosinophils (%) (Auto) , Basophils (%) (Auto) , Differential Total Cells Counted 100, Neutrophils % ( Manual) 48, Lymphocytes % (Manual) 17L, Monocytes % (Manual) 12H, Eosinophils % (Manual) 22H, Basophils % (Manual) 1, Band Neutrophils 0, Nucleated Red Blood Cells 2, Platelet Estimate Adequate, Platelet Morphology Normal, Hypochromasia 3 +, Anisocytosis 3+, Sodium Level 136, Potassium Level 5.3H, Chloride Level 100, Carbon Dioxide Level 24, Anion Gap 12, Blood Urea Nitrogen 62H, Creatinine 8.6H , Estimat Glomerular Filtration Rate 5.7, Glucose Level 101, Calcium Level 8.9, Phosphorus Level 5.9H, Magnesium Level 2.6H, Total Bilirubin 0.7, Aspartate Amino Transf (AST/SGOT) 25, Alanine Aminotransferase (ALT/SGPT) 23, Alkaline Phosphatase 293H, Total Protein 8.7H, Albumin 3.8, Globulin 4.9, Albumin/ Globulin Ratio 0.8L, Lipase 1262H Current Medications Medications (Trade) Dose Ordered Sig/Josi Route PRN Reason Start Time Stop Time Status Last Admin Dose Admin Acetaminophen (Tylenol) 650 mg Q4H PRN ORAL Mild Pain/Temp > 100.5 11/06/18 06:15 12/06/18 06:14 Albuterol Sulfate (Proventil) 2.5 mg Q6H PRN HHN Shortness of Breath 11/06/18 06:15 11/11/18 06:14 Albuterol/ Ipratropium (Albuterol/ Ipratropium) 3 ml Q6H PRN HHN dyspnea 11/06/18 06:15 11/11/18 06:14 Amlodipine Besylate (Norvasc) 10 mg DAILY ORAL 11/09/18 09:00 12/06/18 08:59 Atorvastatin Calcium (Lipitor) 10 mg BEDTIME ORAL 11/07/18 21:00 12/06/18 20:59 11/07/18 21:03 Barium Sulfate (Readi-Cat 2) 450 ml NOW PRN ORAL Radiology Procedure 11/08/18 11:45 11/10/18 11:31 Clonidine HCl (Catapres Tab) 0.1 mg Q4H PRN ORAL For High Blood Pressure 11/06/18 06:15 12/06/18 06:14 Dextrose (Dextrose 50%) STAT PRN IV Hypoglycemia 11/06/18 06:15 12/06/18 06:14 Docusate Sodium (Colace) 100 mg THREE TIMES A DAY ORAL 11/07/18 13:00 12/07/18 12:59 11/08/18 10:01 Epoetin Jose De Jesus (Procrit (for ESRD on dialysis)) 7,000 units SUN-SUN-SUN SUBQ 11/06/18 21:00 12/06/18 20:59 11/06/18 20:45 Gabapentin (Neurontin) 400 mg TWICE A DAY ORAL 11/06/18 09:00 12/06/18 08:59 11/08/18 10:01 Heparin Sodium (Porcine) (Heparin 5000 units/ml) 5,000 units EVERY 12 HOURS SUBQ 11/06/18 09:00 12/06/18 08:59 11/08/18 10:05 Insulin Aspart (NovoLOG) BEFORE MEALS AND HS SUBQ 11/06/18 07:30 12/06/18 07:29 11/08/18 11:50 Iopamidol (Isovue-300 100ml) 100 ml NOW PRN INJ Radiology Procedure 11/08/18 11:45 11/09/18 11:44 Lisinopril (Zestril) 10 mg DAILY ORAL 11/09/18 09:00 12/06/18 08:59 Morphine Sulfate (Morphine Sulfate) 1 mg Q4H PRN IVP FOR SEVERE PAIN (7-10) 11/06/18 07:15 11/13/18 06:14 Ondansetron HCl (Zofran) 4 mg Q6H PRN IVP Nausea & Vomiting 11/06/18 06:15 12/06/18 06:14 Pantoprazole (Protonix) 40 mg EVERY 12 HOURS ORAL 11/07/18 21:00 12/07/18 20:59 11/08/18 10:02 Polyethylene Glycol (Miralax) 17 gm HSPRN PRN ORAL Constipation 11/06/18 06:15 12/06/18 06:14 Sevelamer Carbonate (Renvela) 800 mg THREE TIMES A DAY ORAL 11/06/18 09:00 12/06/18 08:59 11/08/18 10:03 Tramadol HCl (Ultram) 50 mg Q6H PRN ORAL FOR MODERATE PAIN (4-6) 11/06/18 06:15 11/13/18 06:14 11/07/18 21:02 Zolpidem Tartrate (Ambien) 5 mg HSPRN PRN ORAL Insomnia 11/06/18 06:15 11/13/18 06:14 11/07/18 21:03 Meghana Murillo MD Nov 08, 2018 12:50
--- NOTE | 2018-11-08 12:52 | Infectious Diseases Prog Note ---
Assessment/Plan Assessment/Plan Abx: None Assessment: Back pain likely 2ry to acute pancreatitis- ? etiology -lipase ~1k -CXR: : Cardiac megaly and pulmonary venous congestion, similar to prior study on 10/28/2018 Afebrile No leukocytosis REcent R foot blisters/cellulitis, sp Rx -MRI R foot: Very limited exam, as described. No definite evidence of osteomyelitis. However, this is difficult to exclude with confidence given the limitations exam. Dorsal soft tissue edema. No definite focal drainable abscess -10/29 sp bedsie I+D; wound cx neg -10/25 s/p bedsdie I+D; wound cx not sent Recent polymicrobial Gram positive bacteremia- likely colonizers -10/25 BCx Neg (peripheral) -10/22 Bcx 11/29 CONS, / diphteroids; 10/24 2/4 S, mitis oralis (source? periheral or cental line) -2d Echo:No discrete vegetations seen, however SBE may not be excluded by transthoracic 2-D echo. Consider CLAY if clinically indicated. severe anemia ESRD on HD DM2 b/l eye blindness CHF (recent exacerbation 09/2018) bradycardia 2ry hyperparathyroidism CAD s/p stent AOCD s/p AVG w recent rupture HTN morbid obesity Plan: -Continue to monitor off abx -10/30 SP IV Vancomycin and Unasyn #7 -10/27 SP Clindamycin #3 -f/u cx -Monitor CBC/CMP, temperatures -GI, Podiatry f/u -wound care Thank you for this consultation. Will continue to follow along with you. Discussed with RN Subjective Allergies: Coded Allergies: NO KNOWN ALLERGIES (Unverified Allergy, Unknown, 10/15/15) Subjective afebrile at RA no leukocytosis Objective Vital Signs Last 24 Hour Vital Signs Date Time Temp Pulse Resp B/P (MAP) Pulse Ox O2 Delivery O2 Flow Rate FiO2 11/08/18 11:51 159/70 11/08/18 10:03 88 103/62 11/08/18 10:02 103/62 11/08/18 08:24 88 18 Room Air 21 11/08/18 08:00 96.3 71 18 103/62 (76) 100 11/08/18 08:00 Nasal Cannula 3.0 11/08/18 07:49 67 11/08/18 05:42 143/70 11/08/18 04:00 99.0 67 18 143/70 (94) 98 11/08/18 04:00 63 11/08/18 02:14 144/72 11/08/18 00:00 59 11/08/18 00:00 98.1 64 18 119/74 (89) 98 11/07/18 21:00 Nasal Cannula 3.0 11/07/18 20:00 74 11/07/18 20:00 99.1 81 20 145/90 (108) 97 11/07/18 19:25 72 20 Room Air 21 11/07/18 18:00 143/76 11/07/18 16:00 59 11/07/18 16:00 97.8 66 20 143/76 (98) 97 Height (Feet): 5 Height (Inches): 9.00 Weight (Pounds): 332 Objective General Appearance: WD/WN, no apparent distress Lines, tubes and drains: peripheral HEENT: normocephalic, atraumatic Neck: non-tender, normal alignment Respiratory/Chest: chest wall non-tender, lungs clear Cardiovascular/Chest: normal peripheral pulses Abdomen: normal bowel sounds, non tender Genitourinary/Rectal: normal genital exam Extremities: normal range of motion Microbiology Date/Time Source Procedure Growth Status 11/06/18 04:30 Nasal Nares MRSA Culture - Final Staphylococcus Aureus - Mrsa Complete 11/06/18 04:30 Rectum - Final NO CARBAPENEM-RESISTANT ENTEROBACTERI... Complete 11/06/18 04:30 Rectum VRE Culture - Final Enterococcus Faecalis - Vre Complete Laboratory Tests Test 11/08/18 05:50 White Blood Count 9.3 K/UL (4.8-10.8) Red Blood Count 2.92 M/UL (4.20-5.40) L Hemoglobin 7.1 G/DL (12.0-16.0) L Hematocrit 24.0 % (37.0-47.0) L Mean Corpuscular Volume 82 FL (80-99) Mean Corpuscular Hemoglobin 24.2 PG (27.0-31.0) L Mean Corpuscular Hemoglobin Concent 29.4 G/DL (32.0-36.0) L Red Cell Distribution Width 21.8 % (11.6-14.8) H Platelet Count 220 K/UL (150-450) Mean Platelet Volume 6.9 FL (6.5-10.1) Neutrophils (%) (Auto) % (45.0-75.0) Lymphocytes (%) (Auto) % (20.0-45.0) Monocytes (%) (Auto) % (1.0-10.0) Eosinophils (%) (Auto) % (0.0-3.0) Basophils (%) (Auto) % (0.0-2.0) Differential Total Cells Counted 100 Neutrophils % (Manual) 48 % (45-75) Lymphocytes % (Manual) 17 % (20-45) L Monocytes % (Manual) 12 % (1-10) H Eosinophils % (Manual) 22 % (0-3) H Basophils % (Manual) 1 % (0-2) Band Neutrophils 0 % (0-8) Nucleated Red Blood Cells 2 /100 WBC Platelet Estimate Adequate Platelet Morphology Normal Hypochromasia 3+ Anisocytosis 3+ Sodium Level 136 MMOL/L (136-145) Potassium Level 5.3 MMOL/L (3.5-5.1) H Chloride Level 100 MMOL/L (98-107) Carbon Dioxide Level 24 MMOL/L (21-32) Anion Gap 12 mmol/L (5-15) Blood Urea Nitrogen 62 mg/dL (7-18) H Creatinine 8.6 MG/DL (0.55-1.30) H Estimat Glomerular Filtration Rate 5.7 mL/min (>60) Glucose Level 101 MG/DL (74-106) Calcium Level 8.9 MG/DL (8.5-10.1) Phosphorus Level 5.9 MG/DL (2.5-4.9) H Magnesium Level 2.6 MG/DL (1.8-2.4) H Total Bilirubin 0.7 MG/DL (0.2-1.0) Aspartate Amino Transf (AST/SGOT) 25 U/L (15-37) Alanine Aminotransferase (ALT/SGPT) 23 U/L (12-78) Alkaline Phosphatase 293 U/L (46-116) H Total Protein 8.7 G/DL (6.4-8.2) H Albumin 3.8 G/DL (3.4-5.0) Globulin 4.9 g/dL Albumin/Globulin Ratio 0.8 (1.0-2.7) L Lipase 1262 U/L (73-393) H Current Medications Medications (Trade) Dose Ordered Sig/Josi Route PRN Reason Start Time Stop Time Status Last Admin Dose Admin Acetaminophen (Tylenol) 650 mg Q4H PRN ORAL Mild Pain/Temp > 100.5 11/06/18 06:15 12/06/18 06:14 Albuterol Sulfate (Proventil) 2.5 mg Q6H PRN HHN Shortness of Breath 11/06/18 06:15 11/11/18 06:14 Albuterol/ Ipratropium (Albuterol/ Ipratropium) 3 ml Q6H PRN HHN dyspnea 11/06/18 06:15 11/11/18 06:14 Amlodipine Besylate (Norvasc) 10 mg DAILY ORAL 11/09/18 09:00 12/06/18 08:59 Atorvastatin Calcium (Lipitor) 10 mg BEDTIME ORAL 11/07/18 21:00 12/06/18 20:59 11/07/18 21:03 Barium Sulfate (Readi-Cat 2) 450 ml NOW PRN ORAL Radiology Procedure 11/08/18 11:45 11/10/18 11:31 Clonidine HCl (Catapres Tab) 0.1 mg Q4H PRN ORAL For High Blood Pressure 11/06/18 06:15 12/06/18 06:14 Dextrose (Dextrose 50%) STAT PRN IV Hypoglycemia 11/06/18 06:15 12/06/18 06:14 Docusate Sodium (Colace) 100 mg THREE TIMES A DAY ORAL 11/07/18 13:00 12/07/18 12:59 11/08/18 10:01 Epoetin Jose De Jesus (Procrit (for ESRD on dialysis)) 7,000 units MON-WED-FRI SUBQ 11/06/18 21:00 12/06/18 20:59 11/06/18 20:45 Gabapentin (Neurontin) 400 mg TWICE A DAY ORAL 11/06/18 09:00 12/06/18 08:59 11/08/18 10:01 Heparin Sodium (Porcine) (Heparin 5000 units/ml) 5,000 units EVERY 12 HOURS SUBQ 11/06/18 09:00 12/06/18 08:59 11/08/18 10:05 Insulin Aspart (NovoLOG) BEFORE MEALS AND HS SUBQ 11/06/18 07:30 12/06/18 07:29 11/08/18 11:50 Iopamidol (Isovue-300 100ml) 100 ml NOW PRN INJ Radiology Procedure 11/08/18 11:45 11/09/18 11:44 Lisinopril (Zestril) 10 mg DAILY ORAL 11/09/18 09:00 12/06/18 08:59 Morphine Sulfate (Morphine Sulfate) 1 mg Q4H PRN IVP FOR SEVERE PAIN (7-10) 11/06/18 07:15 11/13/18 06:14 Ondansetron HCl (Zofran) 4 mg Q6H PRN IVP Nausea & Vomiting 11/06/18 06:15 12/06/18 06:14 Pantoprazole (Protonix) 40 mg EVERY 12 HOURS ORAL 11/07/18 21:00 12/07/18 20:59 11/08/18 10:02 Polyethylene Glycol (Miralax) 17 gm HSPRN PRN ORAL Constipation 11/06/18 06:15 12/06/18 06:14 Sevelamer Carbonate (Renvela) 800 mg THREE TIMES A DAY ORAL 11/06/18 09:00 12/06/18 08:59 11/08/18 10:03 Tramadol HCl (Ultram) 50 mg Q6H PRN ORAL FOR MODERATE PAIN (4-6) 11/06/18 06:15 11/13/18 06:14 11/07/18 21:02 Zolpidem Tartrate (Ambien) 5 mg HSPRN PRN ORAL Insomnia 11/06/18 06:15 11/13/18 06:14 11/07/18 21:03 Susi Vanegas M.D. Nov 08, 2018 12:52
--- NOTE | 2018-11-08 13:47 | General Progress Note ---
Assessment/Plan Status: stable, unchanged Assessment/Plan # Anemia of chronic disease due to underlying chronic medical issues, multifactorial. 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 Hx of esrd on hd. --> Trend Hgb remains low at 6.5 --> 6.6 --> 7.1 --> Prior anemia w/u has been reviewed. Ferritin >2000 --> No evidence of hemolysis is noted, peripheral smear has been reviewed. --> Hgb goal >7. Transfuse prn. --> EGD 10/24 --> off heparin sq at this time, is on scds --> bone marrow biopsy that can be done as an outpatient. agree with pcp --> EPOGEN since patient is a Nond[employer] # Anemia of chronic kidney disease. --> Je[employer] Witness and does not take any blood products --> on epogen, will continue --> would refrain from iv iron, since is overloaded --> b1, b12, folate as outpatient as well # End-stage renal disease on hemodialysis. Nephro is following, appreciate recs. --> The patient is on hemodialysis due to shortness of breath. # Mild hyperkalemia, potassium 6.2 on admission --> Currently remains elevated at 5.2--> improves with HD --> HD 3x a week --> appreciate nephro recs # Hypertension. Cardiology is following, appreciate recs. --> most recent test was negative per Dr. Vinson --> Adjust medications as appropriate. --> bp control # Diabetes mellitus per primary care physician. --> Cont on insulin --> Cont to monitor BS levels # back pain -- consider pain service eval as required --> opiates as needed, imaging to eval : GREATLY APPRECIATE CONSULTATION. Subjective Date patient seen: Nov 08, 2018 Hematologic/Lymphatic: Reports: anemia Allergies: Coded Allergies: NO KNOWN ALLERGIES (Unverified Allergy, Unknown, 10/15/15) All Systems: reviewed and negative except above Subjective Pt awake and alert. No acute events. Hgb remains low at 7.1 Objective Last 24 Hour Vital Signs Date Time Temp Pulse Resp B/P (MAP) Pulse Ox O2 Delivery O2 Flow Rate FiO2 11/08/18 11:51 159/70 11/08/18 10:03 88 103/62 11/08/18 10:02 103/62 11/08/18 08:24 88 18 Room Air 21 11/08/18 08:00 96.3 71 18 103/62 (76) 100 11/08/18 08:00 Nasal Cannula 3.0 11/08/18 07:49 67 11/08/18 05:42 143/70 11/08/18 04:00 99.0 67 18 143/70 (94) 98 11/08/18 04:00 63 11/08/18 02:14 144/72 11/08/18 00:00 59 11/08/18 00:00 98.1 64 18 119/74 (89) 98 11/07/18 21:00 Nasal Cannula 3.0 11/07/18 20:00 74 11/07/18 20:00 99.1 81 20 145/90 (108) 97 11/07/18 19:25 72 20 Room Air 21 11/07/18 18:00 143/76 11/07/18 16:00 59 11/07/18 16:00 97.8 66 20 143/76 (98) 97 Intake and Output 11/07/18 11/08/18 19:00 07:00 Intake Total 400 ml 350 ml Output Total 2000 ml Balance 400 ml -1650 ml Intake Oral 400 ml 350 ml Output Hemodialysis UF 2000 ml Laboratory Tests 11/08/18 05:50: White Blood Count 9.3, Red Blood Count 2.92L, Hemoglobin 7.1L, Hematocrit 24.0L , Mean Corpuscular Volume 82, Mean Corpuscular Hemoglobin 24.2L, Mean Corpuscular Hemoglobin Concent 29.4L, Red Cell Distribution Width 21.8H, Platelet Count 220, Mean Platelet Volume 6.9, Neutrophils (%) (Auto) , Lymphocytes (%) (Auto) , Monocytes (%) (Auto) , Eosinophils (%) (Auto) , Basophils (%) (Auto) , Differential Total Cells Counted 100, Neutrophils % ( Manual) 48, Lymphocytes % (Manual) 17L, Monocytes % (Manual) 12H, Eosinophils % (Manual) 22H, Basophils % (Manual) 1, Band Neutrophils 0, Nucleated Red Blood Cells 2, Platelet Estimate Adequate, Platelet Morphology Normal, Hypochromasia 3 +, Anisocytosis 3+, Sodium Level 136, Potassium Level 5.3H, Chloride Level 100, Carbon Dioxide Level 24, Anion Gap 12, Blood Urea Nitrogen 62H, Creatinine 8.6H , Estimat Glomerular Filtration Rate 5.7, Glucose Level 101, Calcium Level 8.9, Phosphorus Level 5.9H, Magnesium Level 2.6H, Total Bilirubin 0.7, Aspartate Amino Transf (AST/SGOT) 25, Alanine Aminotransferase (ALT/SGPT) 23, Alkaline Phosphatase 293H, Total Protein 8.7H, Albumin 3.8, Globulin 4.9, Albumin/ Globulin Ratio 0.8L, Lipase 1262H Height (Feet): 5 Height (Inches): 9.00 Weight (Pounds): 332 Objective PHYSICAL EXAMINATION: VITAL SIGNS: Have been reviewed. GENERAL: The patient awake, alert, in mild distress. HEENT: Extraocular muscles intact. No lymphadenopathy noted. CARDIOVASCULAR: S1 and S2. No rubs or gallops. PULMONARY: Clear to auscultation bilaterally. No rales, rhonchi or wheezes. ABDOMINAL: Obese, nondistended and nontender. EXTREMITIES: 1-2+ pitting edema. Malick Lizama MD Nov 08, 2018 13:47
[2018-11-08 16:00] VITALS: BP 162/77
--- NOTE | 2018-11-08 16:14 | Nephrology Progress Note ---
Assessment/Plan Problem List: (1) ESRD (end stage renal disease) on dialysis (2) Morbid obesity (3) Anemia (4) Coronary artery disease Assessment ESRD on HD PermCath placement. left Anemia of CKD DM2 b/l eye blindness CHF (recent exacerbation 09/2018) bradycardia 2ry hyperparathyroidism CAD s/p stent AOCD s/p AVG w recent rupture HTN morbid obesity Right lateral midfoot wound: Wound base is granular, superficial only dermal exposed. No acute SOI. No active purulent drainage. Allegra-wound margins are WNL. Right plantar hallux: Wound base is granular, superficial only dermal exposed. No acute SOI. No active purulent drainage. Allegra-wound margins are WNL. Plan Dialysis in am Iron panel Venofer and EPO diet to renal , medium CHO transfusion if needed Subjective ROS Limited/Unobtainable: No Constitutional: Reports: malaise Objective Objective Last 24 Hour Vital Signs Date Time Temp Pulse Resp B/P (MAP) Pulse Ox O2 Delivery O2 Flow Rate FiO2 11/08/18 12:00 96.6 66 18 159/70 (99) 11/08/18 11:51 159/70 11/08/18 10:03 88 103/62 11/08/18 10:02 103/62 11/08/18 08:24 88 18 Room Air 21 11/08/18 08:00 96.3 71 18 103/62 (76) 100 11/08/18 08:00 Nasal Cannula 3.0 11/08/18 07:49 67 11/08/18 05:42 143/70 11/08/18 04:00 99.0 67 18 143/70 (94) 98 11/08/18 04:00 63 11/08/18 02:14 144/72 11/08/18 00:00 59 11/08/18 00:00 98.1 64 18 119/74 (89) 98 11/07/18 21:00 Nasal Cannula 3.0 11/07/18 20:00 74 11/07/18 20:00 99.1 81 20 145/90 (108) 97 11/07/18 19:25 72 20 Room Air 21 11/07/18 18:00 143/76 Intake and Output 11/07/18 11/08/18 19:00 07:00 Intake Total 400 ml 350 ml Output Total 2000 ml Balance 400 ml -1650 ml Intake Oral 400 ml 350 ml Output Hemodialysis UF 2000 ml Laboratory Tests 11/08/18 05:50: White Blood Count 9.3, Red Blood Count 2.92L, Hemoglobin 7.1L, Hematocrit 24.0L , Mean Corpuscular Volume 82, Mean Corpuscular Hemoglobin 24.2L, Mean Corpuscular Hemoglobin Concent 29.4L, Red Cell Distribution Width 21.8H, Platelet Count 220, Mean Platelet Volume 6.9, Neutrophils (%) (Auto) , Lymphocytes (%) (Auto) , Monocytes (%) (Auto) , Eosinophils (%) (Auto) , Basophils (%) (Auto) , Differential Total Cells Counted 100, Neutrophils % ( Manual) 48, Lymphocytes % (Manual) 17L, Monocytes % (Manual) 12H, Eosinophils % (Manual) 22H, Basophils % (Manual) 1, Band Neutrophils 0, Nucleated Red Blood Cells 2, Platelet Estimate Adequate, Platelet Morphology Normal, Hypochromasia 3 +, Anisocytosis 3+, Sodium Level 136, Potassium Level 5.3H, Chloride Level 100, Carbon Dioxide Level 24, Anion Gap 12, Blood Urea Nitrogen 62H, Creatinine 8.6H , Estimat Glomerular Filtration Rate 5.7, Glucose Level 101, Calcium Level 8.9, Phosphorus Level 5.9H, Magnesium Level 2.6H, Total Bilirubin 0.7, Aspartate Amino Transf (AST/SGOT) 25, Alanine Aminotransferase (ALT/SGPT) 23, Alkaline Phosphatase 293H, Total Protein 8.7H, Albumin 3.8, Globulin 4.9, Albumin/ Globulin Ratio 0.8L, Lipase 1262H Height (Feet): 5 Height (Inches): 9.00 Weight (Pounds): 332 General Appearance: no apparent distress Cardiovascular: normal rate Respiratory/Chest: decreased breath sounds Abdomen: soft, other - obese Objective no change Bryan Hunter MD Nov 08, 2018 16:14
[2018-11-08 17:33] LABS: FERRITIN 796 NG/ML (8-388)
[2018-11-08 18:29] LABS: % IRON SATURATION 25 % (15-50); IRON 67 ug/dL (50-175); TOTAL IRON BINDING CAPACITY 273 ug/dL (250-450)
[2018-11-08 20:00] VITALS: BP 162/81
[2018-11-08] MEDS ORDERED: Epogen (for ESRD on dialysis) SUBQ SCH (21:00)
[2018-11-08] MEDS: traMADol 50mg tab ORAL PRN (21:11)
[2018-11-09] VITALS: BP 153/81
[2018-11-09 04:00] VITALS: BP 165/79
[2018-11-09] MEDS: NovoLOG Insulin Flexpen SUBQ SCH ×4 (06:48→21:47)
--- NOTE | 2018-11-09 06:54 | Infectious Diseases Prog Note ---
Assessment/Plan Assessment/Plan Abx: None Assessment: Back pain likely 2ry to acute pancreatitis- ? etiology -lipase ~1k -CXR: : Cardiac megaly and pulmonary venous congestion, similar to prior study on 10/28/2018 Afebrile No leukocytosis REcent R foot blisters/cellulitis, sp Rx -MRI R foot: Very limited exam, as described. No definite evidence of osteomyelitis. However, this is difficult to exclude with confidence given the limitations exam. Dorsal soft tissue edema. No definite focal drainable abscess -10/29 sp bedsie I+D; wound cx neg -10/25 s/p bedsdie I+D; wound cx not sent Recent polymicrobial Gram positive bacteremia- likely colonizers -10/25 BCx Neg (peripheral) -10/22 Bcx 11/29 CONS, / diphteroids; 10/24 2/4 S, mitis oralis (source? periheral or cental line) -2d Echo:No discrete vegetations seen, however SBE may not be excluded by transthoracic 2-D echo. Consider CLAY if clinically indicated. severe anemia ESRD on HD DM2 b/l eye blindness CHF (recent exacerbation 09/2018) bradycardia 2ry hyperparathyroidism CAD s/p stent AOCD s/p AVG w recent rupture HTN morbid obesity Plan: -Continue to monitor off abx as clinically stable -10/30 SP IV Vancomycin and Unasyn #7 -10/27 SP Clindamycin #3 -f/u cx -Monitor CBC/CMP, temperatures -GI, Podiatry f/u -wound care Thank you for this consultation. Will continue to follow along with you. Subjective Allergies: Coded Allergies: NO KNOWN ALLERGIES (Unverified Allergy, Unknown, 10/15/15) Subjective PAT, Afebrile Objective Vital Signs Last 24 Hour Vital Signs Date Time Temp Pulse Resp B/P (MAP) Pulse Ox O2 Delivery O2 Flow Rate FiO2 11/09/18 06:49 165/79 11/09/18 04:00 65 11/09/18 04:00 98.5 65 19 165/79 (107) 100 11/09/18 00:00 98.9 65 20 153/81 (105) 97 11/09/18 00:00 69 11/08/18 21:11 162/81 11/08/18 21:00 Nasal Cannula 3.0 11/08/18 20:09 69 18 Room Air 21 11/08/18 20:00 97.2 66 20 162/81 (108) 99 11/08/18 20:00 72 11/08/18 16:00 96.7 72 18 162/77 (105) 100 11/08/18 15:22 71 11/08/18 15:22 71 11/08/18 12:00 96.6 66 18 159/70 (99) 11/08/18 11:52 70 11/08/18 11:51 159/70 11/08/18 10:03 88 103/62 11/08/18 10:02 103/62 11/08/18 08:24 88 18 Room Air 21 11/08/18 08:00 96.3 71 18 103/62 (76) 100 11/08/18 08:00 Nasal Cannula 3.0 11/08/18 07:49 67 Height (Feet): 5 Height (Inches): 9.00 Weight (Pounds): 332 Current Medications Medications (Trade) Dose Ordered Sig/Josi Route PRN Reason Start Time Stop Time Status Last Admin Dose Admin Acetaminophen (Tylenol) 650 mg Q4H PRN ORAL Mild Pain/Temp > 100.5 11/06/18 06:15 12/06/18 06:14 Albuterol Sulfate (Proventil) 2.5 mg Q6H PRN HHN Shortness of Breath 11/06/18 06:15 11/11/18 06:14 Albuterol/ Ipratropium (Albuterol/ Ipratropium) 3 ml Q6H PRN HHN dyspnea 11/06/18 06:15 11/11/18 06:14 Amlodipine Besylate (Norvasc) 10 mg DAILY ORAL 11/09/18 09:00 12/06/18 08:59 Atorvastatin Calcium (Lipitor) 10 mg BEDTIME ORAL 11/07/18 21:00 12/06/18 20:59 11/08/18 21:12 Barium Sulfate (Readi-Cat 2) 450 ml NOW PRN ORAL Radiology Procedure 11/08/18 11:45 11/10/18 11:31 Clonidine HCl (Catapres Tab) 0.1 mg Q4H PRN ORAL For High Blood Pressure 11/06/18 06:15 12/06/18 06:14 11/09/18 06:49 Dextrose (Dextrose 50%) STAT PRN IV Hypoglycemia 11/06/18 06:15 12/06/18 06:14 Diphenhydramine HCl (Benadryl) 50 mg Q6H PRN ORAL Itching 11/08/18 18:00 12/08/18 17:59 11/08/18 21:05 Docusate Sodium (Colace) 100 mg THREE TIMES A DAY ORAL 11/07/18 13:00 12/07/18 12:59 11/08/18 17:46 Epoetin Jose De Jesus (Procrit (for ESRD on dialysis)) 10,000 units SUN-SUN-SUN SUBQ 11/08/18 21:00 12/06/18 20:59 11/08/18 21:13 Gabapentin (Neurontin) 400 mg TWICE A DAY ORAL 11/06/18 09:00 12/06/18 08:59 11/08/18 17:46 Heparin Sodium (Porcine) (Heparin 5000 units/ml) 5,000 units EVERY 12 HOURS SUBQ 11/06/18 09:00 12/06/18 08:59 11/08/18 21:16 Insulin Aspart (NovoLOG) BEFORE MEALS AND HS SUBQ 11/06/18 07:30 12/06/18 07:29 11/09/18 06:48 Iopamidol (Isovue-300 100ml) 100 ml NOW PRN INJ Radiology Procedure 11/08/18 11:45 11/09/18 11:44 Iron Sucrose 100 mg/Sodium Chloride 55 ml @ 200 mls/hr BEDTIME IV 11/08/18 21:00 11/17/18 21:17 Lisinopril (Zestril) 10 mg DAILY ORAL 11/09/18 09:00 12/06/18 08:59 Morphine Sulfate (Morphine Sulfate) 1 mg Q4H PRN IVP FOR SEVERE PAIN (7-10) 11/06/18 07:15 11/13/18 06:14 Ondansetron HCl (Zofran) 4 mg Q6H PRN IVP Nausea & Vomiting 11/06/18 06:15 12/06/18 06:14 Pantoprazole (Protonix) 40 mg EVERY 12 HOURS ORAL 11/07/18 21:00 12/07/18 20:59 11/08/18 21:12 Polyethylene Glycol (Miralax) 17 gm HSPRN PRN ORAL Constipation 11/06/18 06:15 12/06/18 06:14 Sevelamer Carbonate (Renvela) 800 mg THREE TIMES A DAY ORAL 11/06/18 09:00 12/06/18 08:59 11/08/18 17:46 Tramadol HCl (Ultram) 50 mg Q6H PRN ORAL FOR MODERATE PAIN (4-6) 11/06/18 06:15 11/13/18 06:14 11/08/18 21:11 Zolpidem Tartrate (Ambien) 5 mg HSPRN PRN ORAL Insomnia 11/06/18 06:15 11/13/18 06:14 11/07/18 21:03 Jimmy Mane MD Nov 09, 2018 06:54
--- NOTE | 2018-11-09 07:13 | Pulmonology Progress Note ---
Assessment/Plan Assessment/Plan ASSESSMENT Intractable back pain pancreatitis lumbar radiculopathy End-stage renal disease, on hd DM type 2 morbid obesity chronic anemia of kidney disease/Jehovah weakness bilateral eye blindness coronary artery disease HTN PLAN of CARE telemetry O2 prn to keep pulse ox above 92% pulm toilet prn pain management intractable back pain likely due to pancreatitis and hx of lumbar radiculopathy GI follows Hx of recent colonoscopy at [facility] which was unremarkable s/p EGD - gastritis, no active source of bleeding trend lipase, still high this am TG stable a/emetic prn ; PPI advance diet as tolerated -able to tolerate fall precautions BP management with multiply regimen of CCB, MARCELLO and hydralazine , optimize further as needed continue statin monitor H&H ; no transfusion /Jehovah witness cont Epogen , heme follows minimize blood draw, no heparin, on SCD 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 follows; MRI of R foot no definite evidence of OM arterial duplex RLE with moderate ischemia at rest GI prophylaxis supportive care pain management case discussed and evaluated by supervising physician Subjective Allergies: Coded Allergies: NO KNOWN ALLERGIES (Unverified Allergy, Unknown, 10/15/15) Subjective awaiting for HD denies chest pain, occasional SOB Objective Last 24 Hour Vital Signs Date Time Temp Pulse Resp B/P (MAP) Pulse Ox O2 Delivery O2 Flow Rate FiO2 11/09/18 06:49 165/79 11/09/18 04:00 65 11/09/18 04:00 98.5 65 19 165/79 (107) 100 11/09/18 00:00 98.9 65 20 153/81 (105) 97 11/09/18 00:00 69 11/08/18 21:11 162/81 11/08/18 21:00 Nasal Cannula 3.0 11/08/18 20:09 69 18 Room Air 21 11/08/18 20:00 97.2 66 20 162/81 (108) 99 11/08/18 20:00 72 11/08/18 16:00 96.7 72 18 162/77 (105) 100 11/08/18 15:22 71 11/08/18 15:22 71 11/08/18 12:00 96.6 66 18 159/70 (99) 11/08/18 11:52 70 11/08/18 11:51 159/70 11/08/18 10:03 88 103/62 11/08/18 10:02 103/62 11/08/18 08:24 88 18 Room Air 21 11/08/18 08:00 96.3 71 18 103/62 (76) 100 11/08/18 08:00 Nasal Cannula 3.0 11/08/18 07:49 67 Intake and Output 11/08/18 11/09/18 19:00 07:00 Intake Total 360 ml 240 ml Balance 360 ml 240 ml Intake Oral 360 ml 240 ml # Voids 1 # Bowel Movements 1 1 General Appearance: no acute distress, other - awake, alert, obese AA blind female HEENT: normocephalic, atraumatic, anicteric, other - blind Respiratory/Chest: lungs clear - distant sounds , no respiratory distress, no accessory muscle use, other - left chest HD catehter Cardiovascular: normal peripheral pulses, normal rate - SR on tele , other - trace edema BLE ; RUE AV shunt Abdomen: normal bowel sounds, soft, non tender - obese Extremities: other - trace edema BLE Neurologic/Psychiatric: abnormal gait, alert, responsive Current Medications Medications (Trade) Dose Ordered Sig/Josi Route PRN Reason Start Time Stop Time Status Last Admin Dose Admin Acetaminophen (Tylenol) 650 mg Q4H PRN ORAL Mild Pain/Temp > 100.5 11/06/18 06:15 12/06/18 06:14 Albuterol Sulfate (Proventil) 2.5 mg Q6H PRN HHN Shortness of Breath 11/06/18 06:15 11/11/18 06:14 Albuterol/ Ipratropium (Albuterol/ Ipratropium) 3 ml Q6H PRN HHN dyspnea 11/06/18 06:15 11/11/18 06:14 Amlodipine Besylate (Norvasc) 10 mg DAILY ORAL 11/09/18 09:00 12/06/18 08:59 Atorvastatin Calcium (Lipitor) 10 mg BEDTIME ORAL 11/07/18 21:00 12/06/18 20:59 11/08/18 21:12 Barium Sulfate (Readi-Cat 2) 450 ml NOW PRN ORAL Radiology Procedure 11/08/18 11:45 11/10/18 11:31 Clonidine HCl (Catapres Tab) 0.1 mg Q4H PRN ORAL For High Blood Pressure 11/06/18 06:15 12/06/18 06:14 11/09/18 06:49 Dextrose (Dextrose 50%) STAT PRN IV Hypoglycemia 11/06/18 06:15 12/06/18 06:14 Diphenhydramine HCl (Benadryl) 50 mg Q6H PRN ORAL Itching 11/08/18 18:00 12/08/18 17:59 11/08/18 21:05 Docusate Sodium (Colace) 100 mg THREE TIMES A DAY ORAL 11/07/18 13:00 12/07/18 12:59 11/08/18 17:46 Epoetin Jose De Jesus (Procrit (for ESRD on dialysis)) 10,000 units SUN-SUN-SUN SUBQ 11/08/18 21:00 12/06/18 20:59 11/08/18 21:13 Gabapentin (Neurontin) 400 mg TWICE A DAY ORAL 11/06/18 09:00 12/06/18 08:59 11/08/18 17:46 Heparin Sodium (Porcine) (Heparin 5000 units/ml) 5,000 units EVERY 12 HOURS SUBQ 11/06/18 09:00 12/06/18 08:59 11/08/18 21:16 Insulin Aspart (NovoLOG) BEFORE MEALS AND HS SUBQ 11/06/18 07:30 12/06/18 07:29 11/09/18 06:48 Iopamidol (Isovue-300 100ml) 100 ml NOW PRN INJ Radiology Procedure 11/08/18 11:45 11/09/18 11:44 Iron Sucrose 100 mg/Sodium Chloride 55 ml @ 200 mls/hr BEDTIME IV 11/08/18 21:00 11/17/18 21:17 Lisinopril (Zestril) 10 mg DAILY ORAL 11/09/18 09:00 12/06/18 08:59 Morphine Sulfate (Morphine Sulfate) 1 mg Q4H PRN IVP FOR SEVERE PAIN (7-10) 11/06/18 07:15 11/13/18 06:14 Ondansetron HCl (Zofran) 4 mg Q6H PRN IVP Nausea & Vomiting 11/06/18 06:15 12/06/18 06:14 Pantoprazole (Protonix) 40 mg EVERY 12 HOURS ORAL 11/07/18 21:00 12/07/18 20:59 11/08/18 21:12 Polyethylene Glycol (Miralax) 17 gm HSPRN PRN ORAL Constipation 11/06/18 06:15 12/06/18 06:14 Sevelamer Carbonate (Renvela) 800 mg THREE TIMES A DAY ORAL 11/06/18 09:00 12/06/18 08:59 11/08/18 17:46 Tramadol HCl (Ultram) 50 mg Q6H PRN ORAL FOR MODERATE PAIN (4-6) 11/06/18 06:15 11/13/18 06:14 11/08/18 21:11 Zolpidem Tartrate (Ambien) 5 mg HSPRN PRN ORAL Insomnia 11/06/18 06:15 11/13/18 06:14 11/07/18 21:03 Chastity Velasco NP Nov 09, 2018 07:13
[2018-11-09 08:00] VITALS: BP 145/65
[2018-11-09] MEDS: Docusate 100mg cap ORAL SCH ×3 (08:55→17:31)
[2018-11-09] MEDS: Heparin 5000 units/ml inj SUBQ SCH ×2 (09:00→21:44)
--- NOTE | 2018-11-09 09:07 | General Progress Note ---
Assessment/Plan Problem List: (1) Congestive heart failure (CHF) ICD Codes: I50.9 - Heart failure, unspecified SNOMED: 50618154 (2) Open wound of right great toe ICD Codes: S91.101A - Unspecified open wound of right great toe without damage to nail, initial encounter SNOMED: 805989311 (3) Back pain ICD Codes: M54.9 - Dorsalgia, unspecified SNOMED: 784812245 (4) General weakness ICD Codes: R53.1 - Weakness SNOMED: 71122956 (5) ESRD (end stage renal disease) on dialysis ICD Codes: N18.6 - End stage renal disease; Z99.2 - Dependence on renal dialysis SNOMED: 063722656 (6) Diabetes mellitus type 2 with neurological manifestations ICD Codes: E11.49 - Type 2 diabetes mellitus with other diabetic neurological complication SNOMED: 88841985, 901662354 (7) Anemia ICD Codes: D64.9 - Anemia, unspecified SNOMED: 557734659 (8) Intractable back pain ICD Codes: M54.9 - Dorsalgia, unspecified SNOMED: 702741160 (9) Pancreatitis ICD Codes: K85.90 - Acute pancreatitis without necrosis or infection, unspecified SNOMED: 62406586 (10) Hypertension ICD Codes: I10 - Essential (primary) hypertension SNOMED: 38821165 (11) Morbid obesity ICD Codes: E66.01 - Morbid (severe) obesity due to excess calories SNOMED: 210133316, 01891064491448 Status: unchanged Assessment/Plan o2 pulm tx abx wound care dialysis cbc bmp am dc plan w hh Subjective Constitutional: Reports: weakness Respiratory: Reports: shortness of breath Allergies: Coded Allergies: NO KNOWN ALLERGIES (Unverified Allergy, Unknown, 10/15/15) All Systems: reviewed and negative except above Subjective o2nc sleeping Objective Last 24 Hour Vital Signs Date Time Temp Pulse Resp B/P (MAP) Pulse Ox O2 Delivery O2 Flow Rate FiO2 11/09/18 08:00 97.5 81 18 145/65 (91) 100 11/09/18 06:49 165/79 11/09/18 04:00 65 11/09/18 04:00 98.5 65 19 165/79 (107) 100 11/09/18 00:00 98.9 65 20 153/81 (105) 97 11/09/18 00:00 69 11/08/18 21:11 162/81 11/08/18 21:00 Nasal Cannula 3.0 11/08/18 20:09 69 18 Room Air 21 11/08/18 20:00 97.2 66 20 162/81 (108) 99 11/08/18 20:00 72 11/08/18 16:00 96.7 72 18 162/77 (105) 100 11/08/18 15:22 71 11/08/18 15:22 71 11/08/18 12:00 96.6 66 18 159/70 (99) 11/08/18 11:52 70 11/08/18 11:51 159/70 11/08/18 10:03 88 103/62 11/08/18 10:02 103/62 Intake and Output 11/08/18 11/09/18 18:59 06:59 Intake Total 360 ml 240 ml Balance 360 ml 240 ml Intake Oral 360 ml 240 ml # Voids 1 # Bowel Movements 1 1 Height (Feet): 5 Height (Inches): 9.00 Weight (Pounds): 332 General Appearance: lethargic EENT: normal ENT inspection Neck: normal alignment Cardiovascular: normal peripheral pulses, normal rate, regular rhythm Respiratory/Chest: chest wall non-tender, decreased breath sounds Abdomen: normal bowel sounds, non tender, soft Extremities: normal inspection Edema: 1+ Arm (L), 1+ Arm (R), 1+ Leg (L), 1+ Leg (R), 1+ Pedal (L), 1+ Pedal ( R), 1+ Generalized Neurologic: responsive, motor weakness Skin: normal pigmentation, warm/dry Roderick Henning DO Nov 09, 2018 09:07
[2018-11-09 09:44] LABS: HEMATOCRIT 23.7 % (37.0-47.0); MEAN CORPUSCULAR VOLUME 84 FL (80-99); PLATELET COUNT 218 K/UL (150-450); RED BLOOD COUNT 2.83 M/UL (4.20-5.40); RED CELL DISTRIBUTION WIDTH 21.7 % (11.6-14.8); WHITE BLOOD COUNT 8.7 K/UL (4.8-10.8)
[2018-11-09 09:46] LABS: HEMOGLOBIN 6.8 G/DL (12.0-16.0)
[2018-11-09 10:09] LABS: ANION GAP 13 mmol/L (5-15); BLOOD UREA NITROGEN 75 mg/dL (7-18); CALCIUM 8.8 MG/DL (8.5-10.1); CARBON DIOXIDE 23 MMOL/L (21-32); CHLORIDE 99 MMOL/L (98-107); POTASSIUM 5.4 MMOL/L (3.5-5.1); SODIUM 135 MMOL/L (136-145)
--- NOTE | 2018-11-09 11:52 | Nephrology Progress Note ---
Assessment/Plan Problem List: (1) ESRD (end stage renal disease) on dialysis (2) Morbid obesity (3) Anemia Assessment: of CKD (4) Coronary artery disease (5) Patient is Hinduism Assessment ESRD on HD PermCath placement. left Anemia of CKD DM2 b/l eye blindness CHF (recent exacerbation 09/2018) bradycardia 2ry hyperparathyroidism CAD s/p stent AOCD s/p AVG w recent rupture HTN morbid obesity Right lateral midfoot wound: Wound base is granular, superficial only dermal exposed. No acute SOI. No active purulent drainage. Allegra-wound margins are WNL. Right plantar hallux: Wound base is granular, superficial only dermal exposed. No acute SOI. No active purulent drainage. Allegra-wound margins are WNL. Plan Dialysis today Iron panel Venofer and EPO, thiamin and b6 diet to renal , medium CHO Subjective ROS Limited/Unobtainable: No Constitutional: Reports: weakness Objective Objective Last 24 Hour Vital Signs Date Time Temp Pulse Resp B/P (MAP) Pulse Ox O2 Delivery O2 Flow Rate FiO2 11/09/18 10:15 72 18 Room Air 21 11/09/18 09:00 Nasal Cannula 3.0 11/09/18 08:00 97.5 81 18 145/65 (91) 100 11/09/18 08:00 60 11/09/18 06:49 165/79 11/09/18 04:00 65 11/09/18 04:00 98.5 65 19 165/79 (107) 100 11/09/18 00:00 98.9 65 20 153/81 (105) 97 11/09/18 00:00 69 11/08/18 21:11 162/81 11/08/18 21:00 Nasal Cannula 3.0 11/08/18 20:09 69 18 Room Air 21 11/08/18 20:00 97.2 66 20 162/81 (108) 99 11/08/18 20:00 72 11/08/18 16:00 96.7 72 18 162/77 (105) 100 11/08/18 15:22 71 11/08/18 15:22 71 11/08/18 12:00 96.6 66 18 159/70 (99) 11/08/18 11:52 70 Intake and Output 11/08/18 11/09/18 18:59 06:59 Intake Total 360 ml 240 ml Balance 360 ml 240 ml Intake Oral 360 ml 240 ml # Voids 1 # Bowel Movements 1 1 Laboratory Tests 11/09/18 09:15: White Blood Count 8.7, Red Blood Count 2.83L, Hemoglobin 6.8*L, Hematocrit 23.7L , Mean Corpuscular Volume 84, Mean Corpuscular Hemoglobin 24.0L, Mean Corpuscular Hemoglobin Concent 28.6L, Red Cell Distribution Width 21.7H, Platelet Count 218, Mean Platelet Volume 6.6, Neutrophils (%) (Auto) , Lymphocytes (%) (Auto) , Monocytes (%) (Auto) , Eosinophils (%) (Auto) , Basophils (%) (Auto) , Differential Total Cells Counted 100, Neutrophils % ( Manual) 57, Lymphocytes % (Manual) 16L, Monocytes % (Manual) 12H, Eosinophils % (Manual) 15H, Basophils % (Manual) 0, Band Neutrophils 0, Platelet Estimate Adequate, Platelet Morphology Normal, Polychromasia 2+, Hypochromasia 3+, Anisocytosis 3+, Target Cells 1+, Tear Drop Cells 2+, Ovalocytes 1+, Sodium Level 135L, Potassium Level 5.4H, Chloride Level 99, Carbon Dioxide Level 23, Anion Gap 13, Blood Urea Nitrogen 75H, Creatinine 10.0H, Estimat Glomerular Filtration Rate 4.7, Glucose Level 175H, Calcium Level 8.8, Lipase 1860H, CA 19- 9 Antigen [Pending], Immunoglobulin G [Pending], Immunoglobulin G1 [Pending], Immunoglobulin G2 [Pending], Immunoglobulin G3 [Pending], Immunoglobulin G4 [ Pending], Anti-Nuclear Antibody Screen [Pending] Height (Feet): 5 Height (Inches): 9.00 Weight (Pounds): 332 General Appearance: no apparent distress Cardiovascular: normal rate Respiratory/Chest: decreased breath sounds Abdomen: distended Objective no change Bryan Hunter MD Nov 09, 2018 11:52
[2018-11-09 12:00] VITALS: BP 132/73
[2018-11-09] MEDS: Thiamine 100mg tab ORAL SCH (12:23)
[2018-11-09] MEDS: Pyridoxine 50mg tab ORAL SCH (12:23)
--- NOTE | 2018-11-09 13:12 | Podiatric Progress Note ---
Assessment/Plan Patient Tawny Frias is a 63 year old female who was admitted on Nov 07, 2018 at 11:51 with Assessment/Plan Assessment/Plan Assessment/Plan Patient Tawny Frias is a 63 year old female who was admitted on Nov 06, 2018 at 03:53 with Assessment/Plan A: Right foot superficial ulcerations. Stable. No acute SOI. ESRD on HD DM2 b/l eye blindness CHF (recent exacerbation 09/2018) bradycardia 2ry hyperparathyroidism CAD s/p stent AOCD s/p AVG w recent rupture HTN morbid obesity P: - Pt seen and evaluated. - Chart reviewed. - Temp, 96.6 - WBC, 8.7 - CRP, 9.3 - Right foot XR report negative for any acute abscess formation or OM. - Right foot MRI completed, report negative for any acute abscess formation or OM. - Based on clinical and imaging exam findings, not acute surgical intervention required at this time. - Cont local wound care daily: betadine to areas of ulcerations, xeroform, 4 x 4 gauze, ABD pad. Kerlix. - I believe these wounds are pressure related pt rests at bedside with external rotation of legs increasing pressure to areas of ulceration. - Pod will cont to monitor. Subjective Allergies: Coded Allergies: NO KNOWN ALLERGIES (Unverified Allergy, Unknown, 10/15/15) Subjective Subjective S: Pt seen bedside for Right foot wound dorsal lateral MF and medial hallux. Pt resting at bedside, NAD. Pt more aware at bedside today. No new pedal complaints to B/L LE. Objective Exam Last 24 Hour Vital Signs Date Time Temp Pulse Resp B/P (MAP) Pulse Ox O2 Delivery O2 Flow Rate FiO2 11/09/18 10:15 72 18 Room Air 21 11/09/18 09:00 Nasal Cannula 3.0 11/09/18 08:00 97.5 81 18 145/65 (91) 100 11/09/18 08:00 60 11/09/18 06:49 165/79 11/09/18 04:00 65 11/09/18 04:00 98.5 65 19 165/79 (107) 100 11/09/18 00:00 98.9 65 20 153/81 (105) 97 11/09/18 00:00 69 11/08/18 21:11 162/81 11/08/18 21:00 Nasal Cannula 3.0 11/08/18 20:09 69 18 Room Air 21 11/08/18 20:00 97.2 66 20 162/81 (108) 99 11/08/18 20:00 72 11/08/18 16:00 96.7 72 18 162/77 (105) 100 11/08/18 15:22 71 11/08/18 15:22 71 Laboratory Tests Test 11/09/18 09:15 White Blood Count 8.7 K/UL (4.8-10.8) Red Blood Count 2.83 M/UL (4.20-5.40) L Hemoglobin 6.8 G/DL (12.0-16.0) *L Hematocrit 23.7 % (37.0-47.0) L Mean Corpuscular Volume 84 FL (80-99) Mean Corpuscular Hemoglobin 24.0 PG (27.0-31.0) L Mean Corpuscular Hemoglobin Concent 28.6 G/DL (32.0-36.0) L Red Cell Distribution Width 21.7 % (11.6-14.8) H Platelet Count 218 K/UL (150-450) Mean Platelet Volume 6.6 FL (6.5-10.1) Neutrophils (%) (Auto) % (45.0-75.0) Lymphocytes (%) (Auto) % (20.0-45.0) Monocytes (%) (Auto) % (1.0-10.0) Eosinophils (%) (Auto) % (0.0-3.0) Basophils (%) (Auto) % (0.0-2.0) Differential Total Cells Counted 100 Neutrophils % (Manual) 57 % (45-75) Lymphocytes % (Manual) 16 % (20-45) L Monocytes % (Manual) 12 % (1-10) H Eosinophils % (Manual) 15 % (0-3) H Basophils % (Manual) 0 % (0-2) Band Neutrophils 0 % (0-8) Platelet Estimate Adequate Platelet Morphology Normal Polychromasia 2+ Hypochromasia 3+ Anisocytosis 3+ Target Cells 1+ Tear Drop Cells 2+ Ovalocytes 1+ Sodium Level 135 MMOL/L (136-145) L Potassium Level 5.4 MMOL/L (3.5-5.1) H Chloride Level 99 MMOL/L (98-107) Carbon Dioxide Level 23 MMOL/L (21-32) Anion Gap 13 mmol/L (5-15) Blood Urea Nitrogen 75 mg/dL (7-18) H Creatinine 10.0 MG/DL (0.55-1.30) H Estimat Glomerular Filtration Rate 4.7 mL/min (>60) Glucose Level 175 MG/DL (74-106) H Calcium Level 8.8 MG/DL (8.5-10.1) Lipase 1860 U/L (73-393) H CA 19-9 Antigen Pending Immunoglobulin G Pending Immunoglobulin G1 Pending Immunoglobulin G2 Pending Immunoglobulin G3 Pending Immunoglobulin G4 Pending Anti-Nuclear Antibody Screen Pending Microbiology Date/Time Source Procedure Growth Status 11/06/18 04:30 Nasal Nares MRSA Culture - Final Staphylococcus Aureus - Mrsa Complete 11/06/18 04:30 Rectum - Final NO CARBAPENEM-RESISTANT ENTEROBACTERI... Complete Dermatological Dermatological Narrative Exam Narrative O: - Focused RLE Right lateral midfoot wound: Wound base is granular, superficial only dermal exposed. No acute SOI. No active purulent drainage. Allegra-wound margins are WNL. Moderate edema noted to Forefoot. Right plantar hallux: Wound base is granular, superficial only dermal exposed. No acute SOI. No active purulent drainage. Allegra-wound margins are WNL. Moderate edema noted to Forefoot. Gerry Jean DPM Nov 09, 2018 13:12
[2018-11-09] MEDS: Lisinopril 10mg tab ORAL SCH (14:47)
[2018-11-09 16:00] VITALS: BP 138/72
[2018-11-09 20:00] VITALS: BP 155/83
[2018-11-09] MEDS: Zolpidem 5mg tab ORAL PRN (21:52)
[2018-11-09] MEDS: Morphine Sulfate 2mg/ml Inj IVP PRN (21:53)
[2018-11-10] VITALS: BP 118/59
[2018-11-10] MEDS: NovoLOG Insulin Flexpen SUBQ SCH ×4 (06:08→21:37)
--- NOTE | 2018-11-10 07:43 | Pulmonology Progress Note ---
Assessment/Plan Assessment/Plan ASSESSMENT Intractable back pain pancreatitis lumbar radiculopathy End-stage renal disease, on hd DM type 2 morbid obesity chronic anemia of kidney disease/Jehovah weakness bilateral eye blindness coronary artery disease HTN PLAN of CARE telemetry O2 prn to keep pulse ox above 92% pulm toilet prn pain management intractable back pain likely due to pancreatitis and hx of lumbar radiculopathy GI follows hx of recent colonoscopy at [facility] which was unremarkable s/p EGD - gastritis, no active source of bleeding trend lipase, still high TG stable a/emetic prn ; PPI advance diet as tolerated -able to tolerate fall precautions BP management with multiply regimen of CCB, MARCELLO and hydralazine , optimize further as needed continue statin monitor H&H ; no transfusion /Jehovah witness cont Epogen , heme follows minimize blood draw, no heparin, on SCD BS management with SSI channel executive follows; MRI of R foot no definite evidence of OM arterial duplex RLE with moderate ischemia at rest GI prophylaxis supportive care pain management transfer to SD if OK with cardio case discussed and evaluated by supervising physician Subjective Allergies: Coded Allergies: NO KNOWN ALLERGIES (Unverified Allergy, Unknown, 10/15/15) Subjective denies chest pain, occasional SOB s/p HD 11/09 HH up to 7.1/24.1 Objective Last 24 Hour Vital Signs Date Time Temp Pulse Resp B/P (MAP) Pulse Ox O2 Delivery O2 Flow Rate FiO2 11/10/18 07:32 70 18 Nasal Cannula 2.0 28 11/10/18 04:00 82 11/10/18 00:00 98.5 81 18 118/59 (78) 98 11/10/18 00:00 80 11/09/18 21:00 Nasal Cannula 3.0 11/09/18 20:09 69 18 Nasal Cannula 2.0 28 11/09/18 20:00 98.2 72 20 155/83 (107) 99 11/09/18 20:00 69 11/09/18 16:00 60 11/09/18 16:00 96.8 85 20 138/72 (94) 97 11/09/18 14:47 132/73 11/09/18 14:47 62 132/73 11/09/18 12:00 60 11/09/18 12:00 96.6 65 18 132/73 (92) 100 11/09/18 10:15 72 18 Room Air 21 11/09/18 09:00 Nasal Cannula 3.0 11/09/18 08:00 97.5 81 18 145/65 (91) 100 11/09/18 08:00 60 Intake and Output 11/09/18 11/10/18 19:00 07:00 Intake Total 480 ml 400 ml Balance 480 ml 400 ml Intake Oral 480 ml 400 ml # Voids 4 # Bowel Movements 2 1 Objective General Appearance: no acute distress, awake, alert, obese AA blind female HEENT: normocephalic, atraumatic, anicteric, other - blind Respiratory/Chest: lungs clear - distant sounds , no respiratory distress, no accessory muscle use, left chest HD catheter Cardiovascular: normal peripheral pulses, normal rate -A fib with some PVC and occ bigeminy , trace to +1 edema BLE ; RUE AV shunt Abdomen: normal BAS, soft, obese, nontender Extremities: trace to +1 edema BLE Neurologic/Psychiatric: abnormal gait, alert, responsive Laboratory Tests 11/09/18 09:15: White Blood Count 8.7, Red Blood Count 2.83L, Hemoglobin 6.8*L, Hematocrit 23.7L , Mean Corpuscular Volume 84, Mean Corpuscular Hemoglobin 24.0L, Mean Corpuscular Hemoglobin Concent 28.6L, Red Cell Distribution Width 21.7H, Platelet Count 218, Mean Platelet Volume 6.6, Neutrophils (%) (Auto) , Lymphocytes (%) (Auto) , Monocytes (%) (Auto) , Eosinophils (%) (Auto) , Basophils (%) (Auto) , Differential Total Cells Counted 100, Neutrophils % ( Manual) 57, Lymphocytes % (Manual) 16L, Monocytes % (Manual) 12H, Eosinophils % (Manual) 15H, Basophils % (Manual) 0, Band Neutrophils 0, Platelet Estimate Adequate, Platelet Morphology Normal, Polychromasia 2+, Hypochromasia 3+, Anisocytosis 3+, Target Cells 1+, Tear Drop Cells 2+, Ovalocytes 1+, Sodium Level 135L, Potassium Level 5.4H, Chloride Level 99, Carbon Dioxide Level 23, Anion Gap 13, Blood Urea Nitrogen 75H, Creatinine 10.0H, Estimat Glomerular Filtration Rate 4.7, Glucose Level 175H, Calcium Level 8.8, Lipase 1860H, CA 19- 9 Antigen [Pending], Immunoglobulin G [Pending], Immunoglobulin G1 [Pending], Immunoglobulin G2 [Pending], Immunoglobulin G3 [Pending], Immunoglobulin G4 [ Pending], Anti-Nuclear Antibody Screen [Pending] Current Medications Medications (Trade) Dose Ordered Sig/Josi Route PRN Reason Start Time Stop Time Status Last Admin Dose Admin Acetaminophen (Tylenol) 650 mg Q4H PRN ORAL Mild Pain/Temp > 100.5 11/06/18 06:15 12/06/18 06:14 Albuterol Sulfate (Proventil) 2.5 mg Q6H PRN HHN Shortness of Breath 11/06/18 06:15 11/11/18 06:14 Albuterol/ Ipratropium (Albuterol/ Ipratropium) 3 ml Q6H PRN HHN dyspnea 11/06/18 06:15 11/11/18 06:14 Amlodipine Besylate (Norvasc) 10 mg DAILY ORAL 11/09/18 09:00 12/06/18 08:59 11/09/18 14:47 Atorvastatin Calcium (Lipitor) 10 mg BEDTIME ORAL 11/07/18 21:00 12/06/18 20:59 11/09/18 21:39 Barium Sulfate (Readi-Cat 2) 450 ml NOW PRN ORAL Radiology Procedure 11/08/18 11:45 11/10/18 11:31 Clonidine HCl (Catapres Tab) 0.1 mg Q4H PRN ORAL For High Blood Pressure 11/06/18 06:15 12/06/18 06:14 11/09/18 06:49 Dextrose (Dextrose 50%) STAT PRN IV Hypoglycemia 11/06/18 06:15 12/06/18 06:14 Diphenhydramine HCl (Benadryl) 50 mg Q6H PRN ORAL Itching 11/08/18 18:00 12/08/18 17:59 11/08/18 21:05 Docusate Sodium (Colace) 100 mg THREE TIMES A DAY ORAL 11/07/18 13:00 12/07/18 12:59 11/09/18 17:31 Epoetin Jose De Jesus (Procrit (for ESRD on dialysis)) 20,000 units SUN-SUN-SUN SUBQ 11/11/18 21:00 12/06/18 20:59 Gabapentin (Neurontin) 400 mg TWICE A DAY ORAL 11/06/18 09:00 12/06/18 08:59 11/09/18 17:31 Heparin Sodium (Porcine) (Heparin 5000 units/ml) 5,000 units EVERY 12 HOURS SUBQ 11/06/18 09:00 12/06/18 08:59 11/09/18 21:44 Insulin Aspart (NovoLOG) BEFORE MEALS AND HS SUBQ 11/06/18 07:30 12/06/18 07:29 11/10/18 06:08 Iron Sucrose 100 mg/Sodium Chloride 55 ml @ 200 mls/hr BEDTIME IV 11/08/18 21:00 11/17/18 21:17 11/09/18 21:41 Lisinopril (Zestril) 10 mg DAILY ORAL 11/09/18 09:00 12/06/18 08:59 11/09/18 14:47 Morphine Sulfate (Morphine Sulfate) 1 mg Q4H PRN IVP FOR SEVERE PAIN (7-10) 11/06/18 07:15 11/13/18 06:14 11/09/18 21:53 Ondansetron HCl (Zofran) 4 mg Q6H PRN IVP Nausea & Vomiting 11/06/18 06:15 12/06/18 06:14 Pantoprazole (Protonix) 40 mg EVERY 12 HOURS ORAL 11/07/18 21:00 12/07/18 20:59 11/09/18 21:39 Polyethylene Glycol (Miralax) 17 gm HSPRN PRN ORAL Constipation 11/06/18 06:15 12/06/18 06:14 Pyridoxine HCl (Vitamin B6) 50 mg DAILY ORAL 11/09/18 12:00 12/09/18 11:59 11/09/18 12:23 Sevelamer Carbonate (Renvela) 1,600 mg THREE TIMES A DAY ORAL 11/09/18 13:00 12/06/18 08:59 11/09/18 17:31 Thiamine HCl (Vitamin B1) 100 mg DAILY ORAL 11/09/18 12:00 12/09/18 11:59 11/09/18 12:23 Tramadol HCl (Ultram) 50 mg Q6H PRN ORAL FOR MODERATE PAIN (4-6) 11/06/18 06:15 11/13/18 06:14 12/14/18 21:11 Vitamin B Complex/ Vit C/Folic Acid (Nephrovite) 1 tab DAILY ORAL 11/10/18 09:00 12/10/18 08:59 Zolpidem Tartrate (Ambien) 5 mg HSPRN PRN ORAL Insomnia 11/06/18 06:15 11/13/18 06:14 11/09/18 21:52 Chastity Velasco NP Nov 10, 2018 07:43
[2018-11-10 08:00] VITALS: BP 131/74
--- NOTE | 2018-11-10 08:58 | General Progress Note ---
Assessment/Plan Problem List: (1) Congestive heart failure (CHF) ICD Codes: I50.9 - Heart failure, unspecified SNOMED: 93271656 (2) Open wound of right great toe ICD Codes: S91.101A - Unspecified open wound of right great toe without damage to nail, initial encounter SNOMED: 249699127 (3) Back pain ICD Codes: M54.9 - Dorsalgia, unspecified SNOMED: 277537803 (4) General weakness ICD Codes: R53.1 - Weakness SNOMED: 83612896 (5) ESRD (end stage renal disease) on dialysis ICD Codes: N18.6 - End stage renal disease; Z99.2 - Dependence on renal dialysis SNOMED: 594469423 (6) Diabetes mellitus type 2 with neurological manifestations ICD Codes: E11.49 - Type 2 diabetes mellitus with other diabetic neurological complication SNOMED: 37449066, 739792508 (7) Anemia ICD Codes: D64.9 - Anemia, unspecified SNOMED: 218514904 (8) Intractable back pain ICD Codes: M54.9 - Dorsalgia, unspecified SNOMED: 045163762 (9) Pancreatitis ICD Codes: K85.90 - Acute pancreatitis without necrosis or infection, unspecified SNOMED: 64215034 (10) Hypertension ICD Codes: I10 - Essential (primary) hypertension SNOMED: 01642661 (11) Morbid obesity ICD Codes: E66.01 - Morbid (severe) obesity due to excess calories SNOMED: 448740142, 42172551590152 Status: unchanged Assessment/Plan o2 pulm tx abx wound care dialysis cbc bmp am dc plan w hh Subjective Constitutional: Reports: weakness Respiratory: Reports: shortness of breath Allergies: Coded Allergies: NO KNOWN ALLERGIES (Unverified Allergy, Unknown, 10/15/15) All Systems: reviewed and negative except above Subjective o2nc sleeping Objective Last 24 Hour Vital Signs Date Time Temp Pulse Resp B/P (MAP) Pulse Ox O2 Delivery O2 Flow Rate FiO2 11/10/18 07:32 70 18 Nasal Cannula 2.0 28 11/10/18 04:00 82 11/10/18 00:00 98.5 81 18 118/59 (78) 98 11/10/18 00:00 80 11/09/18 21:00 Nasal Cannula 3.0 11/09/18 20:09 69 18 Nasal Cannula 2.0 28 11/09/18 20:00 98.2 72 20 155/83 (107) 99 11/09/18 20:00 69 11/09/18 16:00 60 11/09/18 16:00 96.8 85 20 138/72 (94) 97 11/09/18 14:47 132/73 11/09/18 14:47 62 132/73 11/09/18 12:00 60 11/09/18 12:00 96.6 65 18 132/73 (92) 100 11/09/18 10:15 72 18 Room Air 21 11/09/18 09:00 Nasal Cannula 3.0 Intake and Output 11/09/18 11/10/18 19:00 07:00 Intake Total 480 ml 400 ml Balance 480 ml 400 ml Intake Oral 480 ml 400 ml # Voids 4 # Bowel Movements 2 1 Laboratory Tests 11/09/18 09:15: White Blood Count 8.7, Red Blood Count 2.83L, Hemoglobin 6.8*L, Hematocrit 23.7L , Mean Corpuscular Volume 84, Mean Corpuscular Hemoglobin 24.0L, Mean Corpuscular Hemoglobin Concent 28.6L, Red Cell Distribution Width 21.7H, Platelet Count 218, Mean Platelet Volume 6.6, Neutrophils (%) (Auto) , Lymphocytes (%) (Auto) , Monocytes (%) (Auto) , Eosinophils (%) (Auto) , Basophils (%) (Auto) , Differential Total Cells Counted 100, Neutrophils % ( Manual) 57, Lymphocytes % (Manual) 16L, Monocytes % (Manual) 12H, Eosinophils % (Manual) 15H, Basophils % (Manual) 0, Band Neutrophils 0, Platelet Estimate Adequate, Platelet Morphology Normal, Polychromasia 2+, Hypochromasia 3+, Anisocytosis 3+, Target Cells 1+, Tear Drop Cells 2+, Ovalocytes 1+, Sodium Level 135L, Potassium Level 5.4H, Chloride Level 99, Carbon Dioxide Level 23, Anion Gap 13, Blood Urea Nitrogen 75H, Creatinine 10.0H, Estimat Glomerular Filtration Rate 4.7, Glucose Level 175H, Calcium Level 8.8, Lipase 1860H, CA 19- 9 Antigen [Pending], Immunoglobulin G [Pending], Immunoglobulin G1 [Pending], Immunoglobulin G2 [Pending], Immunoglobulin G3 [Pending], Immunoglobulin G4 [ Pending], Anti-Nuclear Antibody Screen [Pending] Height (Feet): 5 Height (Inches): 9.00 Weight (Pounds): 332 General Appearance: lethargic EENT: normal ENT inspection Neck: normal alignment Cardiovascular: normal peripheral pulses, normal rate, regular rhythm Respiratory/Chest: chest wall non-tender, decreased breath sounds Abdomen: normal bowel sounds, non tender, soft Extremities: normal inspection Edema: 1+ Arm (L), 1+ Arm (R), 1+ Leg (L), 1+ Leg (R), 1+ Pedal (L), 1+ Pedal ( R), 1+ Generalized Skin: normal pigmentation, warm/dry Roderick Henning DO Nov 10, 2018 08:58
[2018-11-10] MEDS: Nephrovite tab (Rena-Vite) ORAL SCH (09:06)
[2018-11-10] MEDS: Pyridoxine 50mg tab ORAL SCH (09:06)
[2018-11-10] MEDS: Thiamine 100mg tab ORAL SCH (09:09)
[2018-11-10] MEDS: Lisinopril 10mg tab ORAL SCH (09:09)
[2018-11-10] MEDS: Docusate 100mg cap ORAL SCH ×3 (09:10→17:50)
[2018-11-10] MEDS: Heparin 5000 units/ml inj SUBQ SCH ×2 (09:15→21:36)
[2018-11-10 09:39] LABS: HEMATOCRIT 24.1 % (37.0-47.0); HEMOGLOBIN 7.1 G/DL (12.0-16.0); MEAN CORPUSCULAR VOLUME 82 FL (80-99); PLATELET COUNT 209 K/UL (150-450); RED BLOOD COUNT 2.93 M/UL (4.20-5.40); RED CELL DISTRIBUTION WIDTH 21.8 % (11.6-14.8); WHITE BLOOD COUNT 9.7 K/UL (4.8-10.8)
[2018-11-10 09:56] LABS: ANION GAP 9 mmol/L (5-15); BLOOD UREA NITROGEN 57 mg/dL (7-18); CALCIUM 8.6 MG/DL (8.5-10.1); CARBON DIOXIDE 27 MMOL/L (21-32); CHLORIDE 98 MMOL/L (98-107); CREATININE 8.8 MG/DL (0.55-1.30); POTASSIUM 4.6 MMOL/L (3.5-5.1); SODIUM 134 MMOL/L (136-145)
--- NOTE | 2018-11-10 11:40 | General Progress Note ---
Assessment/Plan Assessment/Plan # Anemia of chronic disease due to underlying chronic medical issues, multifactorial. 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 Hx of esrd on hd. --> Trend Hgb remains low at 6.5 --> 6.6 --> 7.1 --> Prior anemia w/u has been reviewed. Ferritin >2000 --> No evidence of hemolysis is noted, peripheral smear has been reviewed. --> Hgb goal >7. Transfuse prn. --> EGD 10/24 --> off heparin sq at this time, is on scds --> bone marrow biopsy that can be done as an outpatient. agree with pcp --> EPOGEN 20k since patient is a Latter day (appreciate nephro recs) # Anemia of chronic kidney disease. --> Jehovah Witness and does not take any blood products --> on epogen, will continue --> would refrain from iv iron, since is overloaded --> b1, b12, folate as outpatient as well # End-stage renal disease on hemodialysis. Nephro is following, appreciate recs. --> The patient is on hemodialysis due to shortness of breath. # Mild hyperkalemia, potassium 6.2 on admission --> Currently remains elevated at 5.2--> improves with HD --> HD 3x a week --> appreciate nephro recs # Hypertension. Cardiology is following, appreciate recs. --> most recent test was negative per Dr. Vinson --> Adjust medications as appropriate --> bp control # Diabetes mellitus per primary care physician. --> Cont on insulin --> Cont to monitor BS levels # back pain -- consider pain service eval as required --> opiates as needed, imaging to eval : GREATLY APPRECIATE CONSULTATION. Subjective Date patient seen: Nov 10, 2018 Constitutional: Denies: no symptoms, chills, diaphoresis, fever, malaise, weakness, other Cardiovascular: Denies: no symptoms, chest pain, edema, irregular heart rate, lightheadedness, palpitations, syncope, other Respiratory: Denies: no symptoms, cough, orthopnea, shortness of breath, SOB with excertion, SOB at rest, sputum, stridor, wheezing, other Gastrointestinal/Abdominal: Denies: no symptoms, abdomen distended, abdominal pain, black stools, tarry stools, blood in stool, constipated, diarrhea, difficulty swallowing, nausea, poor appetite, poor fluid intake, rectal bleeding , vomiting, other Genitourinary: Denies: no symptoms, burning, discharge, frequency, flank pain, hematuria, incontinence, pain, urgency, other Neurologic/Psychiatric: Denies: no symptoms, anxiety, depressed, emotional problems, headache, numbness, paresthesia, pre-existing deficit, seizure, tingling, tremors, weakness, other Endocrine: Denies: no symptoms, excessive sweating, flushing, intolerance to cold, intolerance to heat, increased hunger, increased thirst, increased urine, unexplained weight gain, unexplained weight loss, other Hematologic/Lymphatic: Reports: no symptoms Allergies: Coded Allergies: NO KNOWN ALLERGIES (Unverified Allergy, Unknown, 10/15/15) Subjective Pt awake and alert. No acute events. Objective Last 24 Hour Vital Signs Date Time Temp Pulse Resp B/P (MAP) Pulse Ox O2 Delivery O2 Flow Rate FiO2 11/10/18 09:10 75 139/70 11/10/18 09:09 139/70 11/10/18 09:00 Nasal Cannula 3.0 11/10/18 08:00 97.3 81 20 131/74 (93) 95 11/10/18 08:00 81 11/10/18 07:32 70 18 Nasal Cannula 2.0 28 11/10/18 04:00 82 11/10/18 00:00 98.5 81 18 118/59 (78) 98 11/10/18 00:00 80 11/09/18 21:00 Nasal Cannula 3.0 11/09/18 20:09 69 18 Nasal Cannula 2.0 28 11/09/18 20:00 98.2 72 20 155/83 (107) 99 11/09/18 20:00 69 11/09/18 16:00 60 11/09/18 16:00 96.8 85 20 138/72 (94) 97 11/09/18 14:47 132/73 18 14:47 62 132/73 11/09/18 12:00 60 11/09/18 12:00 96.6 65 18 132/73 (92) 100 Intake and Output 11/09/18 11/10/18 19:00 07:00 Intake Total 480 ml 400 ml Balance 480 ml 400 ml Intake Oral 480 ml 400 ml # Voids 4 # Bowel Movements 2 1 Laboratory Tests 11/10/18 08:45: White Blood Count 9.7, Red Blood Count 2.93L, Hemoglobin 7.1L, Hematocrit 24.1L , Mean Corpuscular Volume 82, Mean Corpuscular Hemoglobin 24.2L, Mean Corpuscular Hemoglobin Concent 29.4L, Red Cell Distribution Width 21.8H, Platelet Count 209, Mean Platelet Volume 6.9, Neutrophils (%) (Auto) , Lymphocytes (%) (Auto) , Monocytes (%) (Auto) , Eosinophils (%) (Auto) , Basophils (%) (Auto) , Differential Total Cells Counted 100, Neutrophils % ( Manual) 66, Lymphocytes % (Manual) 8L, Monocytes % (Manual) 12H, Eosinophils % ( Manual) 14H, Basophils % (Manual) 0, Band Neutrophils 0, Nucleated Red Blood Cells 2, Platelet Estimate Adequate, Platelet Morphology Normal, Polychromasia 1 +, Hypochromasia 2+, Anisocytosis 2+, Tear Drop Cells Occasional, Sodium Level 134L, Potassium Level 4.6, Chloride Level 98, Carbon Dioxide Level 27, Anion Gap 9, Blood Urea Nitrogen 57H, Creatinine 8.8H, Estimat Glomerular Filtration Rate 5.6, Glucose Level 136H, Calcium Level 8.6 Height (Feet): 5 Height (Inches): 9.00 Weight (Pounds): 332 General Appearance: no apparent distress EENT: TMs normal Neck: supple Cardiovascular: normal rate Respiratory/Chest: chest wall non-tender Abdomen: non tender Extremities: non-tender Objective PHYSICAL EXAMINATION: VITAL SIGNS: Have been reviewed. GENERAL: The patient awake, alert, in mild distress. HEENT: Extraocular muscles intact. No lymphadenopathy noted. CARDIOVASCULAR: S1 and S2. No rubs or gallops. PULMONARY: Clear to auscultation bilaterally. No rales, rhonchi or wheezes. ABDOMINAL: Obese, nondistended and nontender. EXTREMITIES: 1-2+ pitting edema. Malick Lizama MD Nov 10, 2018 11:40
[2018-11-10 12:00] VITALS: BP 128/59
[2018-11-10] MEDS ORDERED: NS 275ml ONE (15:42)
[2018-11-10] MEDS ORDERED: Tubing IV Secondary IV ONE (15:42)
[2018-11-10 16:00] VITALS: BP 147/79
--- NOTE | 2018-11-10 16:06 | Nephrology Progress Note ---
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 left Anemia of CKD DM2 b/l eye blindness CHF (recent exacerbation 09/2018) bradycardia 2ry hyperparathyroidism CAD s/p stent AOCD s/p AVG w recent rupture HTN morbid obesity Right lateral midfoot wound: Wound base is granular, superficial only dermal exposed. No acute SOI. No active purulent drainage. Allegra-wound margins are WNL. Right plantar hallux: Wound base is granular, superficial only dermal exposed. No acute SOI. No active purulent drainage. Allegra-wound margins are WNL. Plan Dialysis 11/09/18 Iron panel Venofer and EPO, thiamin and b6 diet to renal , medium CHO Subjective ROS Limited/Unobtainable: No Constitutional: Reports: malaise Objective Objective Last 24 Hour Vital Signs Date Time Temp Pulse Resp B/P (MAP) Pulse Ox O2 Delivery O2 Flow Rate FiO2 11/10/18 12:00 75 11/10/18 12:00 97.0 76 20 128/59 (82) 97 11/10/18 09:10 75 139/70 11/10/18 09:09 139/70 11/10/18 09:00 Nasal Cannula 3.0 11/10/18 08:00 97.3 81 20 131/74 (93) 95 11/10/18 08:00 81 11/10/18 07:32 70 18 Nasal Cannula 2.0 28 11/10/18 04:00 82 11/10/18 00:00 98.5 81 18 118/59 (78) 98 11/10/18 00:00 80 11/09/18 21:00 Nasal Cannula 3.0 11/09/18 20:09 69 18 Nasal Cannula 2.0 28 11/09/18 20:00 98.2 72 20 155/83 (107) 99 11/09/18 20:00 69 Intake and Output 11/09/18 11/10/18 18:59 06:59 Intake Total 480 ml 400 ml Balance 480 ml 400 ml Intake Oral 480 ml 400 ml # Voids 4 # Bowel Movements 2 1 Laboratory Tests 11/10/18 08:45: White Blood Count 9.7, Red Blood Count 2.93L, Hemoglobin 7.1L, Hematocrit 24.1L , Mean Corpuscular Volume 82, Mean Corpuscular Hemoglobin 24.2L, Mean Corpuscular Hemoglobin Concent 29.4L, Red Cell Distribution Width 21.8H, Platelet Count 209, Mean Platelet Volume 6.9, Neutrophils (%) (Auto) , Lymphocytes (%) (Auto) , Monocytes (%) (Auto) , Eosinophils (%) (Auto) , Basophils (%) (Auto) , Differential Total Cells Counted 100, Neutrophils % ( Manual) 66, Lymphocytes % (Manual) 8L, Monocytes % (Manual) 12H, Eosinophils % ( Manual) 14H, Basophils % (Manual) 0, Band Neutrophils 0, Nucleated Red Blood Cells 2, Platelet Estimate Adequate, Platelet Morphology Normal, Polychromasia 1 +, Hypochromasia 2+, Anisocytosis 2+, Tear Drop Cells Occasional, Sodium Level 134L, Potassium Level 4.6, Chloride Level 98, Carbon Dioxide Level 27, Anion Gap 9, Blood Urea Nitrogen 57H, Creatinine 8.8H, Estimat Glomerular Filtration Rate 5.6, Glucose Level 136H, Calcium Level 8.6 Height (Feet): 5 Height (Inches): 9.00 Weight (Pounds): 332 General Appearance: no apparent distress Objective no change Bryan Hunter MD Nov 10, 2018 16:06
--- NOTE | 2018-11-10 17:04 | Cardiac Electrophysiology PN ---
Assessment/Plan Assessment/Plan 1. Hypertension. On Norvasc 10 mg daily, lisinopril 10 mg daily and HD 2. Bradycardia. Off Coreg 3. Recurrent nonsustained ventricular tachycardia . Nuclear stress test at [facility] [address] on 10/25/2018 showed no evidence of ischemia. 4. Hyperlipidemia. 5. History of positive blood cultures and right toe blisters, status post surgery for podiatry debridement. 6. Diabetes. 7. Congestive heart failure with diastolic dysfunction with an ejection fraction 55%. 8. ESRD on HD 9. Abdominal pain. FU GI Subjective Subjective Remained in SR with occasional PACs and PVCs. Had HD last night. No bradycardia Objective Last 24 Hour Vital Signs Date Time Temp Pulse Resp B/P (MAP) Pulse Ox O2 Delivery O2 Flow Rate FiO2 11/10/18 12:00 75 11/10/18 12:00 97.0 76 20 128/59 (82) 97 11/10/18 09:10 75 139/70 11/10/18 09:09 139/70 11/10/18 09:00 Nasal Cannula 3.0 11/10/18 08:00 97.3 81 20 131/74 (93) 95 11/10/18 08:00 81 11/10/18 07:32 70 18 Nasal Cannula 2.0 28 11/10/18 04:00 82 11/10/18 00:00 98.5 81 18 118/59 (78) 98 11/10/18 00:00 80 11/09/18 21:00 Nasal Cannula 3.0 11/09/18 20:09 69 18 Nasal Cannula 2.0 28 11/09/18 20:00 98.2 72 20 155/83 (107) 99 11/09/18 20:00 69 Intake and Output 11/09/18 11/10/18 18:59 06:59 Intake Total 480 ml 400 ml Balance 480 ml 400 ml Intake Oral 480 ml 400 ml # Voids 4 # Bowel Movements 2 1 Laboratory Tests Test 11/10/18 08:45 White Blood Count 9.7 K/UL (4.8-10.8) Red Blood Count 2.93 M/UL (4.20-5.40) L Hemoglobin 7.1 G/DL (12.0-16.0) L Hematocrit 24.1 % (37.0-47.0) L Mean Corpuscular Volume 82 FL (80-99) Mean Corpuscular Hemoglobin 24.2 PG (27.0-31.0) L Mean Corpuscular Hemoglobin Concent 29.4 G/DL (32.0-36.0) L Red Cell Distribution Width 21.8 % (11.6-14.8) H Platelet Count 209 K/UL (150-450) Mean Platelet Volume 6.9 FL (6.5-10.1) Neutrophils (%) (Auto) % (45.0-75.0) Lymphocytes (%) (Auto) % (20.0-45.0) Monocytes (%) (Auto) % (1.0-10.0) Eosinophils (%) (Auto) % (0.0-3.0) Basophils (%) (Auto) % (0.0-2.0) Differential Total Cells Counted 100 Neutrophils % (Manual) 66 % (45-75) Lymphocytes % (Manual) 8 % (20-45) L Monocytes % (Manual) 12 % (1-10) H Eosinophils % (Manual) 14 % (0-3) H Basophils % (Manual) 0 % (0-2) Band Neutrophils 0 % (0-8) Nucleated Red Blood Cells 2 /100 WBC Platelet Estimate Adequate Platelet Morphology Normal Polychromasia 1+ Hypochromasia 2+ Anisocytosis 2+ Tear Drop Cells Occasional Sodium Level 134 MMOL/L (136-145) L Potassium Level 4.6 MMOL/L (3.5-5.1) Chloride Level 98 MMOL/L (98-107) Carbon Dioxide Level 27 MMOL/L (21-32) Anion Gap 9 mmol/L (5-15) Blood Urea Nitrogen 57 mg/dL (7-18) H Creatinine 8.8 MG/DL (0.55-1.30) H Estimat Glomerular Filtration Rate 5.6 mL/min (>60) Glucose Level 136 MG/DL (74-106) H Calcium Level 8.6 MG/DL (8.5-10.1) Objective HEAD AND NECK: No JVD. LUNGS: Coarse rhonchi. CARDIOVASCULAR: Regular S1 and S2 with no gallop or murmur. ABDOMEN: Soft.Obese EXTREMITIES: 1+ pitting edema. Shalom Vinson MD Nov 10, 2018 17:04
[2018-11-10 21:00] VITALS: BP 150/83
[2018-11-10 23:58] VITALS: BP 112/54
[2018-11-11] MEDS: Morphine Sulfate 2mg/ml Inj IVP PRN ×4 (03:23→16:53)
[2018-11-11 04:00] VITALS: BP 145/84
[2018-11-11] MEDS: NovoLOG Insulin Flexpen SUBQ SCH ×4 (05:42→21:33)
[2018-11-11] MEDS: Thiamine 100mg tab ORAL SCH (08:36)
[2018-11-11] MEDS: Nephrovite tab (Rena-Vite) ORAL SCH (08:36)
[2018-11-11] MEDS: Docusate 100mg cap ORAL SCH ×3 (08:36→16:53)
[2018-11-11] MEDS: Pyridoxine 50mg tab ORAL SCH (08:36)
[2018-11-11] MEDS: Heparin 5000 units/ml inj SUBQ SCH ×2 (08:39→21:00)
[2018-11-11 09:01] VITALS: BP 154/75
[2018-11-11] MEDS: Lisinopril 10mg tab ORAL SCH (09:15)
[2018-11-11 10:24] LABS: HEMATOCRIT 24.2 % (37.0-47.0); MEAN CORPUSCULAR VOLUME 83 FL (80-99); PLATELET COUNT 206 K/UL (150-450); WHITE BLOOD COUNT 9.8 K/UL (4.8-10.8)
[2018-11-11 10:30] LABS: HEMOGLOBIN 6.9 G/DL (12.0-16.0)
--- NOTE | 2018-11-11 10:36 | GI Progress Note ---
Assessment/Plan Problems: (1) Pancreatitis ICD Codes: K85.90 - Acute pancreatitis without necrosis or infection, unspecified SNOMED: 83677835 (2) Anemia ICD Codes: D64.9 - Anemia, unspecified SNOMED: 617382510 (3) End stage renal disease on dialysis ICD Codes: N18.6 - End stage renal failure on dialysis; Z99.2 - Dependence on renal dialysis SNOMED: 461703161 Status: stable Status Narrative Discussed with Dr. Garcia. Assessment/Plan Hx of recent colonoscopy at [facility] which was unremarkable s/p EGD >> gastritis, no active source of bleeding Elevated lipase Normal triglyceride levels CTAP ordered, pancreatic protocol advance diet as tolerated pain mgmt ppi zofran prn Trend lipase fu labs, SASKIA, IgG1-4 The patient was seen and examined at bedside and all new and available data was reviewed in the patients chart. I agree with the above findings, impression and plan. (Patient seen earlier today. Signature stamp does not reflect patient encounter time.). - Jamison Garcia MD Subjective Subjective Patient has generalized abdominal pain, unspecified Tolerating diet Objective Last 24 Hour Vital Signs Date Time Temp Pulse Resp B/P (MAP) Pulse Ox O2 Delivery O2 Flow Rate FiO2 11/11/18 09:15 154/75 11/11/18 09:15 77 154/75 11/11/18 09:06 98.1 11/11/18 09:03 Room Air 11/11/18 09:01 98.1 77 19 154/75 (101) 98 11/11/18 07:56 Room Air 21 11/11/18 07:45 81 11/11/18 07:40 79 21 Room Air 21 11/11/18 04:00 98.1 80 19 145/84 (104) 98 11/11/18 04:00 74 11/11/18 00:01 Nasal Cannula 2.0 28 11/11/18 00:00 72 11/10/18 23:58 97.3 77 19 112/54 (73) 97 11/10/18 21:00 98.2 72 20 150/83 (105) 97 11/10/18 21:00 Nasal Cannula 3.0 11/10/18 20:48 75 18 Nasal Cannula 2.0 28 11/10/18 20:48 Nasal Cannula 2.0 28 11/10/18 20:48 99 Nasal Cannula 2.0 28 11/10/18 20:00 60 11/10/18 16:00 70 11/10/18 16:00 97.2 77 20 147/79 (101) 99 11/10/18 12:00 75 11/10/18 12:00 97.0 76 20 128/59 (82) 97 Intake and Output 11/10/18 11/11/18 19:00 07:00 # Voids 1 # Bowel Movements 1 1 Laboratory Tests Test 11/11/18 08:00 White Blood Count 9.8 K/UL (4.8-10.8) Red Blood Count 2.90 M/UL (4.20-5.40) L Hemoglobin 6.9 G/DL (12.0-16.0) *L Hematocrit 24.2 % (37.0-47.0) L Mean Corpuscular Volume 83 FL (80-99) Mean Corpuscular Hemoglobin 23.9 PG (27.0-31.0) L Mean Corpuscular Hemoglobin Concent 28.7 G/DL (32.0-36.0) L Red Cell Distribution Width 22.0 % (11.6-14.8) H Platelet Count 206 K/UL (150-450) Mean Platelet Volume 6.7 FL (6.5-10.1) Neutrophils (%) (Auto) % (45.0-75.0) Lymphocytes (%) (Auto) % (20.0-45.0) Monocytes (%) (Auto) % (1.0-10.0) Eosinophils (%) (Auto) % (0.0-3.0) Basophils (%) (Auto) % (0.0-2.0) Neutrophils % (Manual) Pending Lymphocytes % (Manual) Pending Platelet Estimate Pending Platelet Morphology Pending Sodium Level Pending Potassium Level Pending Chloride Level Pending Carbon Dioxide Level Pending Blood Urea Nitrogen Pending Creatinine Pending Estimat Glomerular Filtration Rate Pending Glucose Level Pending Calcium Level Pending Height (Feet): 5 Height (Inches): 9.00 Weight (Pounds): 332 General Appearance: WD/WN, no apparent distress, alert Cardiovascular: normal rate Respiratory/Chest: normal breath sounds, no respiratory distress Abdominal Exam: normal bowel sounds, non tender, soft Extremities: normal range of motion, non-tender Jaime Martin NP Nov 11, 2018 10:36
[2018-11-11 10:41] LABS: ANION GAP 14 mmol/L (5-15); BLOOD UREA NITROGEN 65 mg/dL (7-18); CALCIUM 8.4 MG/DL (8.5-10.1); CARBON DIOXIDE 23 MMOL/L (21-32); CHLORIDE 94 MMOL/L (98-107); CREATININE 9.7 MG/DL (0.55-1.30); SODIUM 131 MMOL/L (136-145)
[2018-11-11 10:48] LABS: BILIRUBIN, URINE NEGATIVE (NEGATIVE); GLUCOSE, URINE (UA) 1+ (NEGATIVE); KETONES,URINE NEGATIVE (NEGATIVE); LEUKOCYTE ESTERASE ,URINE 3+ (NEGATIVE); NITRITE,URINE NEGATIVE (NEGATIVE); PH,URINE 8 (4.5-8.0); PROTEIN,URINE 4+ (NEGATIVE); UROBILINOGEN,URINE NORMAL MG/DL (0.0-1.0)
--- NOTE | 2018-11-11 10:49 | Nephrology Progress Note ---
Assessment/Plan Problem List: (1) ESRD (end stage renal disease) on dialysis (2) Morbid obesity (3) Anemia Assessment: of CKD (4) Coronary artery disease (5) Patient is [employer] Assessment ESRD on HD PermCath placement. left Anemia of CKD DM2 b/l eye blindness CHF (recent exacerbation 09/2018) bradycardia 2ry hyperparathyroidism CAD s/p stent AOCD s/p AVG w recent rupture HTN morbid obesity Right lateral midfoot wound: Wound base is granular, superficial only dermal exposed. No acute SOI. No active purulent drainage. Allegra-wound margins are WNL. Right plantar hallux: Wound base is granular, superficial only dermal exposed. No acute SOI. No active purulent drainage. Allegra-wound margins are WNL. Plan Dialysis 11/09/18 next 11/12 Iron panel Venofer and EPO, thiamin and b6 diet to renal , medium CHO Subjective ROS Limited/Unobtainable: No Objective Objective Last 24 Hour Vital Signs Date Time Temp Pulse Resp B/P (MAP) Pulse Ox O2 Delivery O2 Flow Rate FiO2 11/11/18 09:15 154/75 11/11/18 09:15 77 154/75 11/11/18 09:06 98.1 11/11/18 09:03 Room Air 11/11/18 09:01 98.1 77 19 154/75 (101) 98 11/11/18 07:56 Room Air 21 11/11/18 07:45 81 11/11/18 07:40 79 21 Room Air 21 11/11/18 04:00 98.1 80 19 145/84 (104) 98 11/11/18 04:00 74 11/11/18 00:01 Nasal Cannula 2.0 28 11/11/18 00:00 72 11/10/18 23:58 97.3 77 19 112/54 (73) 97 11/10/18 21:00 98.2 72 20 150/83 (105) 97 11/10/18 21:00 Nasal Cannula 3.0 11/10/18 20:48 75 18 Nasal Cannula 2.0 28 11/10/18 20:48 Nasal Cannula 2.0 28 11/10/18 20:48 99 Nasal Cannula 2.0 28 11/10/18 20:00 60 11/10/18 16:00 70 11/10/18 16:00 97.2 77 20 147/79 (101) 99 11/10/18 12:00 75 11/10/18 12:00 97.0 76 20 128/59 (82) 97 Intake and Output 11/10/18 11/11/18 19:00 07:00 # Voids 1 # Bowel Movements 1 1 Laboratory Tests 11/11/18 08:00: White Blood Count 9.8, Red Blood Count 2.90L, Hemoglobin 6.9*L, Hematocrit 24.2L , Mean Corpuscular Volume 83, Mean Corpuscular Hemoglobin 23.9L, Mean Corpuscular Hemoglobin Concent 28.7L, Red Cell Distribution Width 22.0H, Platelet Count 206, Mean Platelet Volume 6.7, Neutrophils (%) (Auto) , Lymphocytes (%) (Auto) , Monocytes (%) (Auto) , Eosinophils (%) (Auto) , Basophils (%) (Auto) , Neutrophils % (Manual) [Pending], Lymphocytes % (Manual) [Pending], Platelet Estimate [Pending], Platelet Morphology [Pending], Sodium Level 131L, Potassium Level 5.0, Chloride Level 94L, Carbon Dioxide Level 23, Anion Gap 14, Blood Urea Nitrogen 65H, Creatinine 9.7H, Estimat Glomerular Filtration Rate 5.0, Glucose Level 223H, Calcium Level 8.4L 11/11/18 10:35: Urine Color [Pending], Urine Appearance [Pending], Urine pH [Pending], Urine Specific [place] [Pending], Urine Protein [Pending], Urine Glucose (UA) [Pending ], Urine Ketones [Pending], Urine Blood [Pending], Urine Nitrite [Pending], Urine Bilirubin [Pending], Urine Urobilinogen [Pending], Urine Leukocyte Esterase [Pending] Height (Feet): 5 Height (Inches): 9.00 Weight (Pounds): 332 General Appearance: no apparent distress Cardiovascular: normal rate Respiratory/Chest: decreased breath sounds Abdomen: other - obese Objective no change Bryan Hunter MD Nov 11, 2018 10:49
[2018-11-11 10:50] LABS: APPEARANCE,URINE CLOUDY; COLOR,URINE YELLOW
--- NOTE | 2018-11-11 10:55 | Infectious Diseases Prog Note ---
Assessment/Plan Assessment/Plan Abx: None Assessment: Back pain likely 2ry to acute pancreatitis- ? etiology -lipase ~1k -CXR: : Cardiac megaly and pulmonary venous congestion, similar to prior study on 10/28/2018 Afebrile No leukocytosis REcent R foot blisters/cellulitis, sp Rx -MRI R foot: Very limited exam, as described. No definite evidence of osteomyelitis. However, this is difficult to exclude with confidence given the limitations exam. Dorsal soft tissue edema. No definite focal drainable abscess -10/29 sp bedsie I+D; wound cx neg -10/25 s/p bedsdie I+D; wound cx not sent Recent polymicrobial Gram positive bacteremia- likely colonizers -10/25 BCx Neg (peripheral) -10/22 Bcx 11/29 CONS, / diphteroids; 10/24 2/4 S, mitis oralis (source? periheral or cental line) -2d Echo:No discrete vegetations seen, however SBE may not be excluded by transthoracic 2-D echo. Consider CLAY if clinically indicated. severe anemia ESRD on HD DM2 b/l eye blindness CHF (recent exacerbation 09/2018) bradycardia 2ry hyperparathyroidism CAD s/p stent AOCD s/p AVG w recent rupture HTN morbid obesity Plan: -Continue to monitor off abx as clinically stable -10/30 SP IV Vancomycin and Unasyn #7 -10/27 SP Clindamycin #3 -f/u cx -Monitor CBC/CMP, temperatures -GI, Podiatry f/u -wound care Subjective Allergies: Coded Allergies: NO KNOWN ALLERGIES (Unverified Allergy, Unknown, 10/15/15) Subjective afebrile at RA no leukocytosis Objective Vital Signs Last 24 Hour Vital Signs Date Time Temp Pulse Resp B/P (MAP) Pulse Ox O2 Delivery O2 Flow Rate FiO2 11/11/18 09:15 154/75 11/11/18 09:15 77 154/75 11/11/18 09:06 98.1 11/11/18 09:03 Room Air 11/11/18 09:01 98.1 77 19 154/75 (101) 98 11/11/18 07:56 Room Air 21 11/11/18 07:45 81 11/11/18 07:40 79 21 Room Air 21 11/11/18 04:00 98.1 80 19 145/84 (104) 98 11/11/18 04:00 74 11/11/18 00:01 Nasal Cannula 2.0 28 11/11/18 00:00 72 11/10/18 23:58 97.3 77 19 112/54 (73) 97 11/10/18 21:00 98.2 72 20 150/83 (105) 97 11/10/18 21:00 Nasal Cannula 3.0 11/10/18 20:48 75 18 Nasal Cannula 2.0 28 11/10/18 20:48 Nasal Cannula 2.0 28 11/10/18 20:48 99 Nasal Cannula 2.0 28 11/10/18 20:00 60 11/10/18 16:00 70 11/10/18 16:00 97.2 77 20 147/79 (101) 99 11/10/18 12:00 75 11/10/18 12:00 97.0 76 20 128/59 (82) 97 Height (Feet): 5 Height (Inches): 9.00 Weight (Pounds): 332 Objective General Appearance: WD/WN, no apparent distress Lines, tubes and drains: peripheral HEENT: normocephalic, atraumatic Neck: non-tender, normal alignment Respiratory/Chest: chest wall non-tender, lungs clear Cardiovascular/Chest: normal peripheral pulses Abdomen: normal bowel sounds, non tender Genitourinary/Rectal: normal genital exam Extremities: normal range of motion Laboratory Tests Test 11/11/18 08:00 11/11/18 10:35 White Blood Count 9.8 K/UL (4.8-10.8) Red Blood Count 2.90 M/UL (4.20-5.40) L Hemoglobin 6.9 G/DL (12.0-16.0) *L Hematocrit 24.2 % (37.0-47.0) L Mean Corpuscular Volume 83 FL (80-99) Mean Corpuscular Hemoglobin 23.9 PG (27.0-31.0) L Mean Corpuscular Hemoglobin Concent 28.7 G/DL (32.0-36.0) L Red Cell Distribution Width 22.0 % (11.6-14.8) H Platelet Count 206 K/UL (150-450) Mean Platelet Volume 6.7 FL (6.5-10.1) Neutrophils (%) (Auto) % (45.0-75.0) Lymphocytes (%) (Auto) % (20.0-45.0) Monocytes (%) (Auto) % (1.0-10.0) Eosinophils (%) (Auto) % (0.0-3.0) Basophils (%) (Auto) % (0.0-2.0) Neutrophils % (Manual) Pending Lymphocytes % (Manual) Pending Platelet Estimate Pending Platelet Morphology Pending Sodium Level 131 MMOL/L (136-145) L Potassium Level 5.0 MMOL/L (3.5-5.1) Chloride Level 94 MMOL/L (98-107) L Carbon Dioxide Level 23 MMOL/L (21-32) Anion Gap 14 mmol/L (5-15) Blood Urea Nitrogen 65 mg/dL (7-18) H Creatinine 9.7 MG/DL (0.55-1.30) H Estimat Glomerular Filtration Rate 5.0 mL/min (>60) Glucose Level 223 MG/DL (74-106) H Calcium Level 8.4 MG/DL (8.5-10.1) L Urine Color Yellow Urine Appearance Cloudy Urine pH 8 (4.5-8.0) Urine Specific [place] 1.015 (1.005-1.035) Urine Protein 4+ (NEGATIVE) H Urine Glucose (UA) 1+ (NEGATIVE) H Urine Ketones Negative (NEGATIVE) Urine Blood 5+ (NEGATIVE) H Urine Nitrite Negative (NEGATIVE) Urine Bilirubin Negative (NEGATIVE) Urine Urobilinogen Normal MG/DL (0.0-1.0) Urine Leukocyte Esterase 3+ (NEGATIVE) H Urine RBC Pending Urine WBC Pending Urine Squamous Epithelial Cells Pending Urine Bacteria Pending Current Medications Medications (Trade) Dose Ordered Sig/Josi Route PRN Reason Start Time Stop Time Status Last Admin Dose Admin Acetaminophen (Tylenol) 650 mg Q4H PRN ORAL Mild Pain/Temp > 100.5 11/06/18 06:15 12/06/18 06:14 Amlodipine Besylate (Norvasc) 10 mg DAILY ORAL 11/09/18 09:00 12/06/18 08:59 11/11/18 09:15 Atorvastatin Calcium (Lipitor) 10 mg BEDTIME ORAL 11/07/18 21:00 12/06/18 20:59 11/10/18 21:32 Clonidine HCl (Catapres Tab) 0.1 mg Q4H PRN ORAL For High Blood Pressure 11/06/18 06:15 12/06/18 06:14 11/09/18 06:49 Dextrose (Dextrose 50%) STAT PRN IV Hypoglycemia 11/06/18 06:15 12/06/18 06:14 Diphenhydramine HCl (Benadryl) 50 mg Q6H PRN ORAL Itching 11/08/18 18:00 12/08/18 17:59 11/11/18 05:41 Docusate Sodium (Colace) 100 mg THREE TIMES A DAY ORAL 11/07/18 13:00 12/07/18 12:59 11/11/18 08:36 Epoetin Jose De Jesus (Procrit (for ESRD on dialysis)) 20,000 units SUN-SUN-SUN SUBQ 11/11/18 21:00 12/06/18 20:59 Gabapentin (Neurontin) 400 mg TWICE A DAY ORAL 11/06/18 09:00 12/06/18 08:59 11/11/18 08:37 Heparin Sodium (Porcine) (Heparin 5000 units/ml) 5,000 units EVERY 12 HOURS SUBQ 11/06/18 09:00 12/06/18 08:59 11/11/18 08:39 Insulin Aspart (NovoLOG) BEFORE MEALS AND HS SUBQ 11/06/18 07:30 12/06/18 07:29 11/11/18 05:42 Iron Sucrose 100 mg/Sodium Chloride 55 ml @ 200 mls/hr BEDTIME IV 11/08/18 21:00 11/17/18 21:17 11/10/18 21:34 Lisinopril (Zestril) 10 mg DAILY ORAL 11/09/18 09:00 12/06/18 08:59 11/11/18 09:15 Morphine Sulfate (Morphine Sulfate) 1 mg Q4H PRN IVP FOR SEVERE PAIN (7-10) 11/06/18 07:15 11/13/18 06:14 11/11/18 08:36 Ondansetron HCl (Zofran) 4 mg Q6H PRN IVP Nausea & Vomiting 11/06/18 06:15 12/06/18 06:14 Pantoprazole (Protonix) 40 mg EVERY 12 HOURS ORAL 11/07/18 21:00 12/07/18 20:59 11/11/18 08:36 Polyethylene Glycol (Miralax) 17 gm HSPRN PRN ORAL Constipation 11/06/18 06:15 12/06/18 06:14 Pyridoxine HCl (Vitamin B6) 50 mg DAILY ORAL 11/09/18 12:00 12/09/18 11:59 11/11/18 08:36 Sevelamer Carbonate (Renvela) 1,600 mg THREE TIMES A DAY ORAL 11/09/18 13:00 12/06/18 08:59 11/11/18 08:36 Thiamine HCl (Vitamin B1) 100 mg DAILY ORAL 11/09/18 12:00 12/09/18 11:59 11/11/18 08:36 Tramadol HCl (Ultram) 50 mg Q6H PRN ORAL FOR MODERATE PAIN (4-6) 11/06/18 06:15 11/13/18 06:14 11/08/18 21:11 Vitamin B Complex/ Vit C/Folic Acid (Nephrovite) 1 tab DAILY ORAL 11/10/18 09:00 12/10/18 08:59 11/11/18 08:36 Zolpidem Tartrate (Ambien) 5 mg HSPRN PRN ORAL Insomnia 11/06/18 06:15 11/13/18 06:14 11/09/18 21:52 Susi Vanegas M.D. Nov 11, 2018 10:55
[2018-11-11 11:06] LABS: ALANINE AMINOTRANSFERASE 21 U/L (12-78); ALBUMIN 3.5 G/DL (3.4-5.0); ALKALINE PHOSPHATASE 230 U/L (46-116); ASPARTATE AMINO TRANSFERASE 20 U/L (15-37); BILIRUBIN,DIRECT 0.3 MG/DL (0.0-0.3); BILIRUBIN,TOTAL 0.8 MG/DL (0.2-1.0); PHOSPHORUS 5.9 MG/DL (2.5-4.9)
[2018-11-11 12:00] VITALS: BP 155/70
--- NOTE | 2018-11-11 12:42 | Cardiac Electrophysiology PN ---
Assessment/Plan Assessment/Plan 1. Hypertension. On Norvasc 10 mg daily, lisinopril 10 mg daily and HD 2. Bradycardia. Off Coreg 3. Recurrent nonsustained ventricular tachycardia.No Syncope or sustained VT Nuclear stress test at [facility] on 10/25/2018 showed no evidence of ischemia. 4. Hyperlipidemia. 5. History of positive blood cultures and right toe blisters, status post surgery for podiatry debridement. 6. Diabetes. 7. Congestive heart failure with diastolic dysfunction with an ejection fraction 55%. 8. ESRD on HD 9. Abdominal pain. FU GI 10. Dysuria, UTI. Started on Abx DW RN Subjective Subjective Remained in SR with occasional PACs and PVCs. No bradycardia or VT. Has dysuria Objective Last 24 Hour Vital Signs Date Time Temp Pulse Resp B/P (MAP) Pulse Ox O2 Delivery O2 Flow Rate FiO2 11/11/18 09:15 154/75 11/11/18 09:15 77 154/75 11/11/18 09:06 98.1 11/11/18 09:03 Room Air 11/11/18 09:01 98.1 77 19 154/75 (101) 98 11/11/18 07:56 Room Air 21 11/11/18 07:45 81 11/11/18 07:40 79 21 Room Air 21 11/11/18 04:00 98.1 80 19 145/84 (104) 98 11/11/18 04:00 74 11/11/18 00:01 Nasal Cannula 2.0 28 11/11/18 00:00 72 11/10/18 23:58 97.3 77 19 112/54 (73) 97 11/10/18 21:00 98.2 72 20 150/83 (105) 97 11/10/18 21:00 Nasal Cannula 3.0 11/10/18 20:48 75 18 Nasal Cannula 2.0 28 11/10/18 20:48 Nasal Cannula 2.0 28 11/10/18 20:48 99 Nasal Cannula 2.0 28 11/10/18 20:00 60 11/10/18 16:00 70 11/10/18 16:00 97.2 77 20 147/79 (101) 99 Intake and Output 11/10/18 11/11/18 19:00 07:00 # Voids 1 # Bowel Movements 1 1 Laboratory Tests Test 11/11/18 08:00 11/11/18 10:35 White Blood Count 9.8 K/UL (4.8-10.8) Red Blood Count 2.90 M/UL (4.20-5.40) L Hemoglobin 6.9 G/DL (12.0-16.0) *L Hematocrit 24.2 % (37.0-47.0) L Mean Corpuscular Volume 83 FL (80-99) Mean Corpuscular Hemoglobin 23.9 PG (27.0-31.0) L Mean Corpuscular Hemoglobin Concent 28.7 G/DL (32.0-36.0) L Red Cell Distribution Width 22.0 % (11.6-14.8) H Platelet Count 206 K/UL (150-450) Mean Platelet Volume 6.7 FL (6.5-10.1) Neutrophils (%) (Auto) % (45.0-75.0) Lymphocytes (%) (Auto) % (20.0-45.0) Monocytes (%) (Auto) % (1.0-10.0) Eosinophils (%) (Auto) % (0.0-3.0) Basophils (%) (Auto) % (0.0-2.0) Differential Total Cells Counted 100 Neutrophils % (Manual) 63 % (45-75) Lymphocytes % (Manual) 9 % (20-45) L Monocytes % (Manual) 15 % (1-10) H Eosinophils % (Manual) 13 % (0-3) H Basophils % (Manual) 0 % (0-2) Band Neutrophils 0 % (0-8) Nucleated Red Blood Cells 1 /100 WBC Platelet Estimate Adequate Platelet Morphology Normal Hypochromasia 1+ Anisocytosis 2+ Macrocytosis 1+ Target Cells 1+ Ovalocytes 1+ Sodium Level 131 MMOL/L (136-145) L Potassium Level 5.0 MMOL/L (3.5-5.1) Chloride Level 94 MMOL/L (98-107) L Carbon Dioxide Level 23 MMOL/L (21-32) Anion Gap 14 mmol/L (5-15) Blood Urea Nitrogen 65 mg/dL (7-18) H Creatinine 9.7 MG/DL (0.55-1.30) H Estimat Glomerular Filtration Rate 5.0 mL/min (>60) Glucose Level 223 MG/DL (74-106) H Calcium Level 8.4 MG/DL (8.5-10.1) L Phosphorus Level 5.9 MG/DL (2.5-4.9) H Magnesium Level 2.5 MG/DL (1.8-2.4) H Total Bilirubin 0.8 MG/DL (0.2-1.0) Direct Bilirubin 0.3 MG/DL (0.0-0.3) Aspartate Amino Transf (AST/SGOT) 20 U/L (15-37) Alanine Aminotransferase (ALT/SGPT) 21 U/L (12-78) Alkaline Phosphatase 230 U/L (46-116) H Total Protein 8.0 G/DL (6.4-8.2) Albumin 3.5 G/DL (3.4-5.0) Urine Color Yellow Urine Appearance Cloudy Urine pH 8 (4.5-8.0) Urine Specific [place] 1.015 (1.005-1.035) Urine Protein 4+ (NEGATIVE) H Urine Glucose (UA) 1+ (NEGATIVE) H Urine Ketones Negative (NEGATIVE) Urine Blood 5+ (NEGATIVE) H Urine Nitrite Negative (NEGATIVE) Urine Bilirubin Negative (NEGATIVE) Urine Urobilinogen Normal MG/DL (0.0-1.0) Urine Leukocyte Esterase 3+ (NEGATIVE) H Urine RBC 40-60 /HPF (0 - 2) H Urine WBC Tntc /HPF (0 - 2) H Urine Squamous Epithelial Cells Many /LPF (NONE/OCC) H Urine Bacteria Many /HPF (NONE) H Objective HEAD AND NECK: No JVD. LUNGS: Coarse rhonchi. CARDIOVASCULAR: Regular S1 and S2 with no gallop or murmur. ABDOMEN: Soft.Obese EXTREMITIES: 1+ pitting edema. Shalom Vinson MD Nov 11, 2018 12:42
--- NOTE | 2018-11-11 13:10 | Podiatric Progress Note ---
Assessment/Plan Patient Tawny Frias is a 63 year old female who was admitted on Nov 07, 2018 at 11:51 with Assessment/Plan A: Right foot superficial ulcerations. Stable. No acute SOI. ESRD on HD DM2 b/l eye blindness CHF (recent exacerbation 09/2018) bradycardia 2ry hyperparathyroidism CAD s/p stent AOCD s/p AVG w recent rupture HTN morbid obesity P: - Pt seen and evaluated. - Chart reviewed. - Temp, 98.1 - WBC, 9.8 - Right foot XR report negative for any acute abscess formation or OM. - Right foot MRI completed, report negative for any acute abscess formation or OM. - Based on clinical and imaging exam findings, not acute surgical intervention required at this time. - Cont local wound care daily: betadine to areas of ulcerations, xeroform, 4 x 4 gauze, ABD pad. Kerlix. - I believe these wounds are pressure related pt rests at bedside with external rotation of legs increasing pressure to areas of ulceration. - Pod will cont to monitor. Subjective Allergies: Coded Allergies: NO KNOWN ALLERGIES (Unverified Allergy, Unknown, 10/15/15) Subjective S: Pt seen bedside. Resting comfortably, NAD. Confirms keeping dressing C/D/I. Objective Exam Last 24 Hour Vital Signs Date Time Temp Pulse Resp B/P (MAP) Pulse Ox O2 Delivery O2 Flow Rate FiO2 11/11/18 09:15 154/75 11/11/18 09:15 77 154/75 11/11/18 09:06 98.1 11/11/18 09:03 Room Air 11/11/18 09:01 98.1 77 19 154/75 (101) 98 11/11/18 07:56 Room Air 21 11/11/18 07:45 81 11/11/18 07:40 79 21 Room Air 21 11/11/18 04:00 98.1 80 19 145/84 (104) 98 11/11/18 04:00 74 11/11/18 00:01 Nasal Cannula 2.0 28 11/11/18 00:00 72 11/10/18 23:58 97.3 77 19 112/54 (73) 97 11/10/18 21:00 98.2 72 20 150/83 (105) 97 11/10/18 21:00 Nasal Cannula 3.0 11/10/18 20:48 75 18 Nasal Cannula 2.0 28 11/10/18 20:48 Nasal Cannula 2.0 28 11/10/18 20:48 99 Nasal Cannula 2.0 28 11/10/18 20:00 60 11/10/18 16:00 70 11/10/18 16:00 97.2 77 20 147/79 (101) 99 Laboratory Tests Test 11/11/18 08:00 11/11/18 10:35 White Blood Count 9.8 K/UL (4.8-10.8) Red Blood Count 2.90 M/UL (4.20-5.40) L Hemoglobin 6.9 G/DL (12.0-16.0) *L Hematocrit 24.2 % (37.0-47.0) L Mean Corpuscular Volume 83 FL (80-99) Mean Corpuscular Hemoglobin 23.9 PG (27.0-31.0) L Mean Corpuscular Hemoglobin Concent 28.7 G/DL (32.0-36.0) L Red Cell Distribution Width 22.0 % (11.6-14.8) H Platelet Count 206 K/UL (150-450) Mean Platelet Volume 6.7 FL (6.5-10.1) Neutrophils (%) (Auto) % (45.0-75.0) Lymphocytes (%) (Auto) % (20.0-45.0) Monocytes (%) (Auto) % (1.0-10.0) Eosinophils (%) (Auto) % (0.0-3.0) Basophils (%) (Auto) % (0.0-2.0) Differential Total Cells Counted 100 Neutrophils % (Manual) 63 % (45-75) Lymphocytes % (Manual) 9 % (20-45) L Monocytes % (Manual) 15 % (1-10) H Eosinophils % (Manual) 13 % (0-3) H Basophils % (Manual) 0 % (0-2) Band Neutrophils 0 % (0-8) Nucleated Red Blood Cells 1 /100 WBC Platelet Estimate Adequate Platelet Morphology Normal Hypochromasia 1+ Anisocytosis 2+ Macrocytosis 1+ Target Cells 1+ Ovalocytes 1+ Sodium Level 131 MMOL/L (136-145) L Potassium Level 5.0 MMOL/L (3.5-5.1) Chloride Level 94 MMOL/L (98-107) L Carbon Dioxide Level 23 MMOL/L (21-32) Anion Gap 14 mmol/L (5-15) Blood Urea Nitrogen 65 mg/dL (7-18) H Creatinine 9.7 MG/DL (0.55-1.30) H Estimat Glomerular Filtration Rate 5.0 mL/min (>60) Glucose Level 223 MG/DL (74-106) H Calcium Level 8.4 MG/DL (8.5-10.1) L Phosphorus Level 5.9 MG/DL (2.5-4.9) H Magnesium Level 2.5 MG/DL (1.8-2.4) H Total Bilirubin 0.8 MG/DL (0.2-1.0) Direct Bilirubin 0.3 MG/DL (0.0-0.3) Aspartate Amino Transf (AST/SGOT) 20 U/L (15-37) Alanine Aminotransferase (ALT/SGPT) 21 U/L (12-78) Alkaline Phosphatase 230 U/L (46-116) H Total Protein 8.0 G/DL (6.4-8.2) Albumin 3.5 G/DL (3.4-5.0) Urine Color Yellow Urine Appearance Cloudy Urine pH 8 (4.5-8.0) Urine Specific [place] 1.015 (1.005-1.035) Urine Protein 4+ (NEGATIVE) H Urine Glucose (UA) 1+ (NEGATIVE) H Urine Ketones Negative (NEGATIVE) Urine Blood 5+ (NEGATIVE) H Urine Nitrite Negative (NEGATIVE) Urine Bilirubin Negative (NEGATIVE) Urine Urobilinogen Normal MG/DL (0.0-1.0) Urine Leukocyte Esterase 3+ (NEGATIVE) H Urine RBC 40-60 /HPF (0 - 2) H Urine WBC Tntc /HPF (0 - 2) H Urine Squamous Epithelial Cells Many /LPF (NONE/OCC) H Urine Bacteria Many /HPF (NONE) H Microbiology Date/Time Source Procedure Growth Status 11/06/18 04:30 Nasal Nares MRSA Culture - Final Staphylococcus Aureus - Mrsa Complete 11/06/18 04:30 Rectum - Final NO CARBAPENEM-RESISTANT ENTEROBACTERI... Complete Dermatological Dermatological Narrative O: - Focused RLE Right lateral midfoot wound: Wound base is granular, superficial only dermal exposed. No acute SOI. No active purulent drainage. Allegra-wound margins are WNL. Moderate edema noted to Forefoot. Right plantar hallux: Wound base is granular, superficial only dermal exposed. No acute SOI. No active purulent drainage. Allegra-wound margins are WNL. Moderate edema noted to Forefoot. Gerry Jean DPM Nov 11, 2018 13:10
--- NOTE | 2018-11-11 13:29 | Pulmonology Progress Note ---
Assessment/Plan Problems: (1) Intractable back pain (2) Lumbar radiculopathy (3) End stage renal disease on dialysis (4) Coronary artery disease (5) ESRD (end stage renal disease) on dialysis (6) Blindness of both eyes (7) Anemia Assessment/Plan symptomatic treatment pain management HD by nephrology check electrolytes abx as per ID all reviewed Heart rate better off coreg Subjective ROS Limited/Unobtainable: No Constitutional: Reports: no symptoms HEENT: Repors: no symptoms Respiratory: Reports: no symptoms Allergies: Coded Allergies: NO KNOWN ALLERGIES (Unverified Allergy, Unknown, 10/15/15) Objective Last 24 Hour Vital Signs Date Time Temp Pulse Resp B/P (MAP) Pulse Ox O2 Delivery O2 Flow Rate FiO2 11/11/18 09:15 154/75 11/11/18 09:15 77 154/75 11/11/18 09:06 98.1 11/11/18 09:03 Room Air 11/11/18 09:01 98.1 77 19 154/75 (101) 98 11/11/18 07:56 Room Air 21 11/11/18 07:45 81 11/11/18 07:40 79 21 Room Air 21 11/11/18 04:00 98.1 80 19 145/84 (104) 98 11/11/18 04:00 74 11/11/18 00:01 Nasal Cannula 2.0 28 11/11/18 00:00 72 11/10/18 23:58 97.3 77 19 112/54 (73) 97 11/10/18 21:00 98.2 72 20 150/83 (105) 97 11/10/18 21:00 Nasal Cannula 3.0 11/10/18 20:48 75 18 Nasal Cannula 2.0 28 11/10/18 20:48 Nasal Cannula 2.0 28 11/10/18 20:48 99 Nasal Cannula 2.0 28 11/10/18 20:00 60 11/10/18 16:00 70 11/10/18 16:00 97.2 77 20 147/79 (101) 99 Intake and Output 11/10/18 11/11/18 18:59 06:59 # Voids 1 # Bowel Movements 1 1 General Appearance: WD/WN HEENT: atraumatic, anicteric Respiratory/Chest: chest wall non-tender, normal breath sounds Breasts: no masses Cardiovascular: normal rate, no gallop/murmur Abdomen: normal bowel sounds, no organomegaly, no scars Extremities: no cyanosis Skin: no rash Laboratory Tests 11/11/18 08:00: White Blood Count 9.8, Red Blood Count 2.90L, Hemoglobin 6.9*L, Hematocrit 24.2L , Mean Corpuscular Volume 83, Mean Corpuscular Hemoglobin 23.9L, Mean Corpuscular Hemoglobin Concent 28.7L, Red Cell Distribution Width 22.0H, Platelet Count 206, Mean Platelet Volume 6.7, Neutrophils (%) (Auto) , Lymphocytes (%) (Auto) , Monocytes (%) (Auto) , Eosinophils (%) (Auto) , Basophils (%) (Auto) , Differential Total Cells Counted 100, Neutrophils % ( Manual) 63, Lymphocytes % (Manual) 9L, Monocytes % (Manual) 15H, Eosinophils % ( Manual) 13H, Basophils % (Manual) 0, Band Neutrophils 0, Nucleated Red Blood Cells 1, Platelet Estimate Adequate, Platelet Morphology Normal, Hypochromasia 1 +, Anisocytosis 2+, Macrocytosis 1+, Target Cells 1+, Ovalocytes 1+, Sodium Level 131L, Potassium Level 5.0, Chloride Level 94L, Carbon Dioxide Level 23, Anion Gap 14, Blood Urea Nitrogen 65H, Creatinine 9.7H, Estimat Glomerular Filtration Rate 5.0, Glucose Level 223H, Calcium Level 8.4L, Phosphorus Level 5.9H, Magnesium Level 2.5H, Total Bilirubin 0.8, Direct Bilirubin 0.3, Aspartate Amino Transf (AST/SGOT) 20, Alanine Aminotransferase (ALT/SGPT) 21, Alkaline Phosphatase 230H, Total Protein 8.0, Albumin 3.5 11/11/18 10:35: Urine Color Yellow, Urine Appearance Cloudy, Urine pH 8, Urine Specific [place] 1.015, Urine Protein 4+H, Urine Glucose (UA) 1+H, Urine Ketones Negative, Urine Blood 5+H, Urine Nitrite Negative, Urine Bilirubin Negative, Urine Urobilinogen Normal, Urine Leukocyte Esterase 3+H, Urine RBC 40-60H, Urine WBC TntcH, Urine Squamous Epithelial Cells ManyH, Urine Bacteria ManyH Current Medications Medications (Trade) Dose Ordered Sig/Josi Route PRN Reason Start Time Stop Time Status Last Admin Dose Admin Acetaminophen (Tylenol) 650 mg Q4H PRN ORAL Mild Pain/Temp > 100.5 11/06/18 06:15 12/06/18 06:14 Amlodipine Besylate (Norvasc) 10 mg DAILY ORAL 11/09/18 09:00 12/06/18 08:59 11/11/18 09:15 Atorvastatin Calcium (Lipitor) 10 mg BEDTIME ORAL 11/07/18 21:00 12/06/18 20:59 11/10/18 21:32 Ceftriaxone Sodium 1 gm/ Dextrose 55 ml @ 110 mls/hr DAILY IVPB 11/11/18 13:30 11/18/18 13:29 Clonidine HCl (Catapres Tab) 0.1 mg Q4H PRN ORAL For High Blood Pressure 11/06/18 06:15 12/06/18 06:14 11/09/18 06:49 Dextrose (Dextrose 50%) STAT PRN IV Hypoglycemia 11/06/18 06:15 12/06/18 06:14 Diphenhydramine HCl (Benadryl) 50 mg Q6H PRN ORAL Itching 11/08/18 18:00 12/08/18 17:59 11/11/18 05:41 Docusate Sodium (Colace) 100 mg THREE TIMES A DAY ORAL 11/07/18 13:00 12/07/18 12:59 11/11/18 12:52 Epoetin Jose De Jesus (Procrit (for ESRD on dialysis)) 20,000 units SUN-WED-SUN SUBQ 11/11/18 21:00 12/06/18 20:59 Gabapentin (Neurontin) 400 mg TWICE A DAY ORAL 11/06/18 09:00 12/06/18 08:59 11/11/18 08:37 Heparin Sodium (Porcine) (Heparin 5000 units/ml) 5,000 units EVERY 12 HOURS SUBQ 11/06/18 09:00 12/06/18 08:59 11/11/18 08:39 Insulin Aspart (NovoLOG) BEFORE MEALS AND HS SUBQ 11/06/18 07:30 12/06/18 07:29 11/11/18 11:29 Iron Sucrose 100 mg/Sodium Chloride 55 ml @ 200 mls/hr BEDTIME IV 11/08/18 21:00 11/17/18 21:17 12/16/18 21:34 Lisinopril (Zestril) 10 mg DAILY ORAL 11/09/18 09:00 12/06/18 08:59 11/11/18 09:15 Morphine Sulfate (Morphine Sulfate) 1 mg Q4H PRN IVP FOR SEVERE PAIN (7-10) 11/06/18 07:15 11/13/18 06:14 11/11/18 08:36 Ondansetron HCl (Zofran) 4 mg Q6H PRN IVP Nausea & Vomiting 11/06/18 06:15 12/06/18 06:14 Pantoprazole (Protonix) 40 mg EVERY 12 HOURS ORAL 11/07/18 21:00 12/07/18 20:59 11/11/18 08:36 Polyethylene Glycol (Miralax) 17 gm HSPRN PRN ORAL Constipation 11/06/18 06:15 12/06/18 06:14 Pyridoxine HCl (Vitamin B6) 50 mg DAILY ORAL 11/09/18 12:00 12/09/18 11:59 11/11/18 08:36 Sevelamer Carbonate (Renvela) 1,600 mg THREE TIMES A DAY ORAL 11/09/18 13:00 12/06/18 08:59 11/11/18 12:52 Thiamine HCl (Vitamin B1) 100 mg DAILY ORAL 11/09/18 12:00 12/09/18 11:59 11/11/18 08:36 Tramadol HCl (Ultram) 50 mg Q6H PRN ORAL FOR MODERATE PAIN (4-6) 11/06/18 06:15 11/13/18 06:14 11/08/18 21:11 Vitamin B Complex/ Vit C/Folic Acid (Nephrovite) 1 tab DAILY ORAL 11/10/18 09:00 12/10/18 08:59 11/11/18 08:36 Zolpidem Tartrate (Ambien) 5 mg HSPRN PRN ORAL Insomnia 11/06/18 06:15 11/13/18 06:14 11/09/18 21:52 Meghana Murillo MD Nov 11, 2018 13:29
[2018-11-11] MEDS: cefTRIAXone 1 GM in D5W 55 ML IVPB SCH (13:43)
--- NOTE | 2018-11-11 14:50 | General Progress Note ---
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 ICD Codes: E11.49 - Type 2 diabetes mellitus with other diabetic neurological complication SNOMED: 16604352, 334284573 (7) Anemia ICD Codes: D64.9 - Anemia, unspecified SNOMED: 642348155 (8) Intractable back pain ICD Codes: M54.9 - Dorsalgia, unspecified SNOMED: 867290377 (9) Pancreatitis ICD Codes: K85.90 - Acute pancreatitis without necrosis or infection, unspecified SNOMED: 18734972 (10) Hypertension ICD Codes: I10 - Essential (primary) hypertension SNOMED: 55992478 (11) Morbid obesity ICD Codes: E66.01 - Morbid (severe) obesity due to excess calories SNOMED: 070574626, 74427541174455 Status: unchanged Assessment/Plan o2 pulm tx abx wound care dialysis cbc bmp am dc plan w hh Subjective Constitutional: Reports: weakness Respiratory: Reports: shortness of breath Allergies: Coded Allergies: NO KNOWN ALLERGIES (Unverified Allergy, Unknown, 10/15/15) All Systems: reviewed and negative except above Subjective o2nc sleeping Objective Last 24 Hour Vital Signs Date Time Temp Pulse Resp B/P (MAP) Pulse Ox O2 Delivery O2 Flow Rate FiO2 11/11/18 12:02 78 18 09:15 154/75 18 09:15 77 154/75 18 09:06 98.1 11/11/18 09:03 Room Air 11/11/18 09:01 98.1 77 19 154/75 (101) 98 11/11/18 07:56 Room Air 21 12/17/18 07:45 81 11/11/18 07:40 79 21 Room Air 21 11/11/18 04:00 98.1 80 19 145/84 (104) 98 11/11/18 04:00 74 11/11/18 00:01 Nasal Cannula 2.0 28 11/11/18 00:00 72 11/10/18 23:58 97.3 77 19 112/54 (73) 97 11/10/18 21:00 98.2 72 20 150/83 (105) 97 11/10/18 21:00 Nasal Cannula 3.0 11/10/18 20:48 75 18 Nasal Cannula 2.0 28 11/10/18 20:48 Nasal Cannula 2.0 28 11/10/18 20:48 99 Nasal Cannula 2.0 28 11/10/18 20:00 60 11/10/18 16:00 70 11/10/18 16:00 97.2 77 20 147/79 (101) 99 Intake and Output 11/10/18 11/11/18 18:59 06:59 # Voids 1 # Bowel Movements 1 1 Laboratory Tests 11/11/18 08:00: White Blood Count 9.8, Red Blood Count 2.90L, Hemoglobin 6.9*L, Hematocrit 24.2L , Mean Corpuscular Volume 83, Mean Corpuscular Hemoglobin 23.9L, Mean Corpuscular Hemoglobin Concent 28.7L, Red Cell Distribution Width 22.0H, Platelet Count 206, Mean Platelet Volume 6.7, Neutrophils (%) (Auto) , Lymphocytes (%) (Auto) , Monocytes (%) (Auto) , Eosinophils (%) (Auto) , Basophils (%) (Auto) , Differential Total Cells Counted 100, Neutrophils % ( Manual) 63, Lymphocytes % (Manual) 9L, Monocytes % (Manual) 15H, Eosinophils % ( Manual) 13H, Basophils % (Manual) 0, Band Neutrophils 0, Nucleated Red Blood Cells 1, Platelet Estimate Adequate, Platelet Morphology Normal, Hypochromasia 1 +, Anisocytosis 2+, Macrocytosis 1+, Target Cells 1+, Ovalocytes 1+, Sodium Level 131L, Potassium Level 5.0, Chloride Level 94L, Carbon Dioxide Level 23, Anion Gap 14, Blood Urea Nitrogen 65H, Creatinine 9.7H, Estimat Glomerular Filtration Rate 5.0, Glucose Level 223H, Calcium Level 8.4L, Phosphorus Level 5.9H, Magnesium Level 2.5H, Total Bilirubin 0.8, Direct Bilirubin 0.3, Aspartate Amino Transf (AST/SGOT) 20, Alanine Aminotransferase (ALT/SGPT) 21, Alkaline Phosphatase 230H, Total Protein 8.0, Albumin 3.5 11/11/18 10:35: Urine Color Yellow, Urine Appearance Cloudy, Urine pH 8, Urine Specific [place] 1.015, Urine Protein 4+H, Urine Glucose (UA) 1+H, Urine Ketones Negative, Urine Blood 5+H, Urine Nitrite Negative, Urine Bilirubin Negative, Urine Urobilinogen Normal, Urine Leukocyte Esterase 3+H, Urine RBC 40-60H, Urine WBC TntcH, Urine Squamous Epithelial Cells ManyH, Urine Bacteria ManyH Height (Feet): 5 Height (Inches): 9.00 Weight (Pounds): 332 General Appearance: lethargic EENT: normal ENT inspection Neck: normal alignment Cardiovascular: normal peripheral pulses, normal rate, regular rhythm Respiratory/Chest: chest wall non-tender, decreased breath sounds Abdomen: normal bowel sounds, non tender, soft Extremities: normal inspection Edema: 1+ Arm (L), 1+ Arm (R), 1+ Leg (L), 1+ Leg (R), 1+ Pedal (L), 1+ Pedal ( R), 1+ Generalized Edema: trace edema Neurologic: responsive, motor weakness Skin: normal pigmentation, warm/dry Roderick HenningCecelia DO Nov 11, 2018 14:50
[2018-11-11 15:42] VITALS: BP 158/80
--- NOTE | 2018-11-11 17:56 | General Progress Note ---
Assessment/Plan Assessment/Plan # Anemia of chronic disease due to underlying chronic medical issues, multifactorial. 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 Hx of esrd on hd. --> Trend Hgb remains low at 6.5 --> 6.6 --> 7.1-->6.8 --> Prior anemia w/u has been reviewed. Ferritin >2000 --> No evidence of hemolysis is noted, peripheral smear has been reviewed. --> Hgb goal >7. Transfuse prn. --> EGD 10/24 --> off heparin sq at this time, is on scds --> bone marrow biopsy that can be done as an outpatient. agree with pcp --> EPOGEN 20k three times a week since patient is a Alev[employer] ( appreciate nephro recs) # Anemia of chronic kidney disease. --> Jehov[employer] Witness and does not take any blood products --> on epogen, will continue --> would refrain from iv iron, since is overloaded --> b1, b12, folate as outpatient as well # End-stage renal disease on hemodialysis. Nephro is following, appreciate recs. --> The patient is on hemodialysis due to shortness of breath. # Mild hyperkalemia, potassium 6.2 on admission --> Currently remains elevated at 5.2--> improves with HD --> HD 3x a week --> appreciate nephro recs # Hypertension. Cardiology is following, appreciate recs. --> most recent test was negative per Dr. Vinson --> Adjust medications as appropriate --> bp control # Diabetes mellitus per primary care physician. --> Cont on insulin --> Cont to monitor BS levels # back pain -- consider pain service eval as required --> opiates as needed, imaging to eval : GREATLY APPRECIATE CONSULTATION. Subjective Constitutional: Reports: no symptoms HEENT: Reports: no symptoms Cardiovascular: Reports: no symptoms Respiratory: Reports: no symptoms Gastrointestinal/Abdominal: Reports: no symptoms Genitourinary: Reports: no symptoms Endocrine: Reports: no symptoms Hematologic/Lymphatic: Reports: anemia Allergies: Coded Allergies: NO KNOWN ALLERGIES (Unverified Allergy, Unknown, 10/15/15) Subjective Pt awake and alert. No acute events. Objective Last 24 Hour Vital Signs Date Time Temp Pulse Resp B/P (MAP) Pulse Ox O2 Delivery O2 Flow Rate FiO2 11/11/18 15:42 98.1 80 19 158/80 (106) 98 11/11/18 12:02 78 11/11/18 12:00 98.1 75 19 155/70 (98) 98 11/11/18 09:15 154/75 11/11/18 09:15 77 154/75 11/11/18 09:06 98.1 11/11/18 09:03 Room Air 11/11/18 09:01 98.1 77 19 154/75 (101) 98 11/11/18 07:56 Room Air 21 11/11/18 07:45 81 11/11/18 07:40 79 21 Room Air 21 11/11/18 04:00 98.1 80 19 145/84 (104) 98 11/11/18 04:00 74 11/11/18 00:01 Nasal Cannula 2.0 28 11/11/18 00:00 72 11/10/18 23:58 97.3 77 19 112/54 (73) 97 11/10/18 21:00 98.2 72 20 150/83 (105) 97 11/10/18 21:00 Nasal Cannula 3.0 11/10/18 20:48 75 18 Nasal Cannula 2.0 28 11/10/18 20:48 Nasal Cannula 2.0 28 11/10/18 20:48 99 Nasal Cannula 2.0 28 11/10/18 20:00 60 Intake and Output 11/10/18 11/11/18 18:59 06:59 # Voids 1 # Bowel Movements 1 1 Laboratory Tests 11/11/18 08:00: White Blood Count 9.8, Red Blood Count 2.90L, Hemoglobin 6.9*L, Hematocrit 24.2L , Mean Corpuscular Volume 83, Mean Corpuscular Hemoglobin 23.9L, Mean Corpuscular Hemoglobin Concent 28.7L, Red Cell Distribution Width 22.0H, Platelet Count 206, Mean Platelet Volume 6.7, Neutrophils (%) (Auto) , Lymphocytes (%) (Auto) , Monocytes (%) (Auto) , Eosinophils (%) (Auto) , Basophils (%) (Auto) , Differential Total Cells Counted 100, Neutrophils % ( Manual) 63, Lymphocytes % (Manual) 9L, Monocytes % (Manual) 15H, Eosinophils % ( Manual) 13H, Basophils % (Manual) 0, Band Neutrophils 0, Nucleated Red Blood Cells 1, Platelet Estimate Adequate, Platelet Morphology Normal, Hypochromasia 1 +, Anisocytosis 2+, Macrocytosis 1+, Target Cells 1+, Ovalocytes 1+, Sodium Level 131L, Potassium Level 5.0, Chloride Level 94L, Carbon Dioxide Level 23, Anion Gap 14, Blood Urea Nitrogen 65H, Creatinine 9.7H, Estimat Glomerular Filtration Rate 5.0, Glucose Level 223H, Calcium Level 8.4L, Phosphorus Level 5.9H, Magnesium Level 2.5H, Total Bilirubin 0.8, Direct Bilirubin 0.3, Aspartate Amino Transf (AST/SGOT) 20, Alanine Aminotransferase (ALT/SGPT) 21, Alkaline Phosphatase 230H, Total Protein 8.0, Albumin 3.5 11/11/18 10:35: Urine Color Yellow, Urine Appearance Cloudy, Urine pH 8, Urine Specific [place] 1.015, Urine Protein 4+H, Urine Glucose (UA) 1+H, Urine Ketones Negative, Urine Blood 5+H, Urine Nitrite Negative, Urine Bilirubin Negative, Urine Urobilinogen Normal, Urine Leukocyte Esterase 3+H, Urine RBC 40-60H, Urine WBC TntcH, Urine Squamous Epithelial Cells ManyH, Urine Bacteria ManyH Height (Feet): 5 Height (Inches): 9.00 Weight (Pounds): 332 General Appearance: alert EENT: TMs normal Neck: supple Respiratory/Chest: normal breath sounds Abdomen: non tender Extremities: non-tender Objective PHYSICAL EXAMINATION: VITAL SIGNS: Have been reviewed. GENERAL: The patient awake, alert, in mild distress. HEENT: Extraocular muscles intact. No lymphadenopathy noted. CARDIOVASCULAR: S1 and S2. No rubs or gallops. PULMONARY: Clear to auscultation bilaterally. No rales, rhonchi or wheezes. ABDOMINAL: Obese, nondistended and nontender. EXTREMITIES: 1-2+ pitting edema. Malick Lizama MD Nov 11, 2018 17:56
[2018-11-11] MEDS ORDERED: Epogen (for ESRD on dialysis) SUBQ SCH (21:00)
[2018-11-12] MEDS: traMADol 50mg tab ORAL PRN (06:13)
[2018-11-12] MEDS: NovoLOG Insulin Flexpen SUBQ SCH ×4 (06:15→21:23)
[2018-11-12 08:00] VITALS: BP 112/76
[2018-11-12] MEDS: Lisinopril 10mg tab ORAL SCH (08:53)
[2018-11-12] MEDS: Thiamine 100mg tab ORAL SCH (08:53)
[2018-11-12] MEDS: Docusate 100mg cap ORAL SCH ×3 (08:53→17:45)
[2018-11-12] MEDS: Pyridoxine 50mg tab ORAL SCH (08:54)
[2018-11-12] MEDS: Nephrovite tab (Rena-Vite) ORAL SCH (08:54)
[2018-11-12] MEDS: Heparin 5000 units/ml inj SUBQ SCH ×2 (08:56→21:21)
[2018-11-12] MEDS: cefTRIAXone 1 GM in D5W 55 ML IVPB SCH (09:40)
--- NOTE | 2018-11-12 10:27 | Cardiac Electrophysiology PN ---
Assessment/Plan Assessment/Plan 1. Hypertension. On Norvasc 10 mg daily, lisinopril 10 mg daily and HD 2. Bradycardia. Off Coreg 3. Recurrent nonsustained ventricular tachycardia. No Syncope or sustained VT Nuclear stress test at [facility] on 10/25/2018 showed no evidence of ischemia. 4. Hyperlipidemia. 5. History of positive blood cultures and right toe blisters, status post surgery by podiatry 6. Diabetes. 7. Congestive heart failure with diastolic dysfunction with an ejection fraction 55%. 8. ESRD on HD 9. Abdominal pain. FU GI 10. Dysuria, UTI. Started on Abx DW RN Subjective Subjective Remained in SR .No bradycardia or VT. Started on Abx for UTI. Awaiting HD today Objective Last 24 Hour Vital Signs Date Time Temp Pulse Resp B/P (MAP) Pulse Ox O2 Delivery O2 Flow Rate FiO2 11/12/18 08:53 112/76 11/12/18 08:53 66 112/76 11/12/18 08:00 97.5 66 20 112/76 (88) 96 11/12/18 07:43 88 22 Room Air 21 11/12/18 07:43 Room Air 21 11/12/18 04:00 79 11/11/18 21:00 Room Air 11/11/18 20:00 81 11/11/18 19:27 Room Air 21 11/11/18 19:27 74 21 Room Air 21 11/11/18 17:23 98.1 11/11/18 16:00 85 11/11/18 15:42 98.1 80 19 158/80 (106) 98 11/11/18 12:02 78 11/11/18 12:00 98.1 75 19 155/70 (98) 98 Intake and Output 11/11/18 11/12/18 19:00 07:00 Intake Total 830 ml Balance 830 ml Intake Oral 720 ml IV Total 110 ml # Voids 1 3 Laboratory Tests Test 11/11/18 10:35 Urine Color Yellow Urine Appearance Cloudy Urine pH 8 (4.5-8.0) Urine Specific [place] 1.015 (1.005-1.035) Urine Protein 4+ (NEGATIVE) H Urine Glucose (UA) 1+ (NEGATIVE) H Urine Ketones Negative (NEGATIVE) Urine Blood 5+ (NEGATIVE) H Urine Nitrite Negative (NEGATIVE) Urine Bilirubin Negative (NEGATIVE) Urine Urobilinogen Normal MG/DL (0.0-1.0) Urine Leukocyte Esterase 3+ (NEGATIVE) H Urine RBC 40-60 /HPF (0 - 2) H Urine WBC Tntc /HPF (0 - 2) H Urine Squamous Epithelial Cells Many /LPF (NONE/OCC) H Urine Bacteria Many /HPF (NONE) H Microbiology Date/Time Source Procedure Growth Status 11/11/18 10:35 Urine,Clean Catch Urine Culture - Preliminary NO GROWTH Resulted Objective HEAD AND NECK: No JVD. LUNGS: Coarse rhonchi. CARDIOVASCULAR: Regular S1 and S2 with no gallop or murmur. ABDOMEN: Soft.Obese EXTREMITIES: 1+ pitting edema. Shalom Vinson MD Nov 12, 2018 10:27
--- NOTE | 2018-11-12 11:35 | Pulmonology Progress Note ---
Assessment/Plan Problems: (1) Intractable back pain (2) Lumbar radiculopathy (3) End stage renal disease on dialysis (4) Coronary artery disease (5) ESRD (end stage renal disease) on dialysis (6) Blindness of both eyes (7) Anemia Assessment/Plan c/o dysuria symptomatic treatment pain management HD by nephrology check electrolytes abx as per ID all reviewed Subjective ROS Limited/Unobtainable: No Constitutional: Reports: no symptoms HEENT: Repors: no symptoms Allergies: Coded Allergies: NO KNOWN ALLERGIES (Unverified Allergy, Unknown, 10/15/15) Objective Last 24 Hour Vital Signs Date Time Temp Pulse Resp B/P (MAP) Pulse Ox O2 Delivery O2 Flow Rate FiO2 11/12/18 09:00 Room Air 11/12/18 08:53 112/76 11/12/18 08:53 66 112/76 11/12/18 08:00 97.5 66 20 112/76 (88) 96 11/12/18 08:00 87 11/12/18 07:43 88 22 Room Air 21 11/12/18 07:43 Room Air 21 11/12/18 04:00 79 11/11/18 21:00 Room Air 11/11/18 20:00 81 11/11/18 19:27 Room Air 21 11/11/18 19:27 74 21 Room Air 21 11/11/18 17:23 98.1 11/11/18 16:00 85 11/11/18 15:42 98.1 80 19 158/80 (106) 98 11/11/18 12:02 78 11/11/18 12:00 98.1 75 19 155/70 (98) 98 Intake and Output 11/11/18 11/12/18 19:00 07:00 Intake Total 830 ml Balance 830 ml Intake Oral 720 ml IV Total 110 ml # Voids 1 3 General Appearance: WD/WN HEENT: normocephalic, atraumatic Respiratory/Chest: chest wall non-tender, lungs clear Breasts: no masses Cardiovascular: normal peripheral pulses Abdomen: normal bowel sounds Genitourinary: normal external genitalia Skin: no rash 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 grossly normal Microbiology Date/Time Source Procedure Growth Status 11/11/18 10:35 Urine,Clean Catch Urine Culture - Preliminary NO GROWTH Resulted Current Medications Medications (Trade) Dose Ordered Sig/Josi Route PRN Reason Start Time Stop Time Status Last Admin Dose Admin Acetaminophen (Tylenol) 650 mg Q4H PRN ORAL Mild Pain/Temp > 100.5 11/06/18 06:15 12/06/18 06:14 Amlodipine Besylate (Norvasc) 10 mg DAILY ORAL 11/09/18 09:00 12/06/18 08:59 11/12/18 08:53 Atorvastatin Calcium (Lipitor) 10 mg BEDTIME ORAL 11/07/18 21:00 12/06/18 20:59 11/11/18 21:32 Ceftriaxone Sodium 1 gm/ Dextrose 55 ml @ 110 mls/hr DAILY IVPB 11/11/18 13:30 11/18/18 13:29 11/12/18 09:40 Clonidine HCl (Catapres Tab) 0.1 mg Q4H PRN ORAL For High Blood Pressure 11/06/18 06:15 12/06/18 06:14 11/09/18 06:49 Dextrose (Dextrose 50%) STAT PRN IV Hypoglycemia 11/06/18 06:15 12/06/18 06:14 Diphenhydramine HCl (Benadryl) 50 mg Q6H PRN ORAL Itching 11/08/18 18:00 12/08/18 17:59 11/12/18 06:17 Docusate Sodium (Colace) 100 mg THREE TIMES A DAY ORAL 11/07/18 13:00 12/07/18 12:59 11/12/18 08:53 Epoetin Jose De Jesus (Procrit (for ESRD on dialysis)) 20,000 units SUN-SUN-SUN SUBQ 11/11/18 21:00 12/06/18 20:59 11/11/18 21:34 Gabapentin (Neurontin) 400 mg TWICE A DAY ORAL 11/06/18 09:00 12/06/18 08:59 11/12/18 08:54 Heparin Sodium (Porcine) (Heparin 5000 units/ml) 5,000 units EVERY 12 HOURS SUBQ 11/06/18 09:00 12/06/18 08:59 11/12/18 08:56 Insulin Aspart (NovoLOG) BEFORE MEALS AND HS SUBQ 11/06/18 07:30 12/06/18 07:29 11/12/18 06:15 Iron Sucrose 100 mg/Sodium Chloride 55 ml @ 200 mls/hr BEDTIME IV 11/08/18 21:00 11/17/18 21:17 11/11/18 21:32 Lisinopril (Zestril) 10 mg DAILY ORAL 11/09/18 09:00 12/06/18 08:59 11/12/18 08:53 Morphine Sulfate (Morphine Sulfate) 1 mg Q4H PRN IVP FOR SEVERE PAIN (7-10) 11/06/18 07:15 11/13/18 06:14 11/11/18 16:53 Ondansetron HCl (Zofran) 4 mg Q6H PRN IVP Nausea & Vomiting 11/06/18 06:15 12/06/18 06:14 Pantoprazole (Protonix) 40 mg EVERY 12 HOURS ORAL 11/07/18 21:00 12/07/18 20:59 11/12/18 08:53 Polyethylene Glycol (Miralax) 17 gm HSPRN PRN ORAL Constipation 11/06/18 06:15 12/06/18 06:14 Pyridoxine HCl (Vitamin B6) 50 mg DAILY ORAL 11/09/18 12:00 12/09/18 11:59 11/12/18 08:54 Sevelamer Carbonate (Renvela) 1,600 mg THREE TIMES A DAY ORAL 11/09/18 13:00 12/06/18 08:59 11/12/18 08:54 Thiamine HCl (Vitamin B1) 100 mg DAILY ORAL 11/09/18 12:00 12/09/18 11:59 11/12/18 08:53 Tramadol HCl (Ultram) 50 mg Q6H PRN ORAL FOR MODERATE PAIN (4-6) 11/06/18 06:15 11/13/18 06:14 11/12/18 06:13 Vitamin B Complex/ Vit C/Folic Acid (Nephrovite) 1 tab DAILY ORAL 11/10/18 09:00 12/10/18 08:59 11/12/18 08:54 Zolpidem Tartrate (Ambien) 5 mg HSPRN PRN ORAL Insomnia 11/06/18 06:15 11/13/18 06:14 11/09/18 21:52 Meghana Murillo MD Nov 12, 2018 11:35
[2018-11-12 12:00] VITALS: BP 146/73
--- NOTE | 2018-11-12 12:20 | Nephrology Progress Note ---
Assessment/Plan Problem List: (1) ESRD (end stage renal disease) on dialysis (2) Morbid obesity (3) Anemia Assessment: of CKD (4) Coronary artery disease (5) Patient is Yarsani Assessment ESRD on HD PermCath placement. left Anemia of CKD DM2 b/l eye blindness CHF (recent exacerbation 09/2018) bradycardia 2ry hyperparathyroidism CAD s/p stent AOCD s/p AVG w recent rupture HTN morbid obesity Right lateral midfoot wound: Wound base is granular, superficial only dermal exposed. No acute SOI. No active purulent drainage. Allegra-wound margins are WNL. Right plantar hallux: Wound base is granular, superficial only dermal exposed. No acute SOI. No active purulent drainage. Allegra-wound margins are WNL. Plan Dialysis 11/09/18 next 11/12 Iron panel noted Venofer and EPO, thiamin and b6 diet to renal , medium CHO DC planning Subjective ROS Limited/Unobtainable: No Constitutional: Reports: weakness Objective Objective Last 24 Hour Vital Signs Date Time Temp Pulse Resp B/P (MAP) Pulse Ox O2 Delivery O2 Flow Rate FiO2 11/12/18 09:00 Room Air 11/12/18 08:53 112/76 11/12/18 08:53 66 112/76 11/12/18 08:00 97.5 66 20 112/76 (88) 96 11/12/18 08:00 87 11/12/18 07:43 88 22 Room Air 21 11/12/18 07:43 Room Air 21 11/12/18 04:00 79 11/11/18 21:00 Room Air 11/11/18 20:00 81 11/11/18 19:27 Room Air 21 11/11/18 19:27 74 21 Room Air 21 11/11/18 17:23 98.1 11/11/18 16:00 85 11/11/18 15:42 98.1 80 19 158/80 (106) 98 Intake and Output 11/11/18 11/12/18 19:00 07:00 Intake Total 830 ml Balance 830 ml Intake Oral 720 ml IV Total 110 ml # Voids 1 3 Height (Feet): 5 Height (Inches): 9.00 Weight (Pounds): 332 General Appearance: no apparent distress Cardiovascular: normal rate Respiratory/Chest: decreased breath sounds Abdomen: other - obese Objective no change Fouladian,Bryan MD Nov 12, 2018 12:20
--- NOTE | 2018-11-12 12:21 | Infectious Diseases Prog Note ---
Assessment/Plan Assessment/Plan Assessment: Probable UTI (+dysuria) -u/a wbc tnct, nit neg, leuk +3; ucx NTD Back pain likely 2ry to acute pancreatitis- ? etiology -lipase ~1k -CXR: : Cardiac megaly and pulmonary venous congestion, similar to prior study on 10/28/2018 Afebrile No leukocytosis REcent R foot blisters/cellulitis, sp Rx -MRI R foot: Very limited exam, as described. No definite evidence of osteomyelitis. However, this is difficult to exclude with confidence given the limitations exam. Dorsal soft tissue edema. No definite focal drainable abscess -10/29 sp bedsie I+D; wound cx neg -10/25 s/p bedsdie I+D; wound cx not sent Recent polymicrobial Gram positive bacteremia- likely colonizers -10/25 BCx Neg (peripheral) -10/22 Bcx 1/ CONS, 1/4 diphteroids; 10/24 2/4 S, mitis oralis (source? periheral or cental line) -2d Echo:No discrete vegetations seen, however SBE may not be excluded by transthoracic 2-D echo. Consider CLAY if clinically indicated. severe anemia ESRD on HD DM2 b/l eye blindness CHF (recent exacerbation 09/2018) bradycardia 2ry hyperparathyroidism CAD s/p stent AOCD s/p AVG w recent rupture HTN morbid obesity Plan: -Continue empiric Ceftriaxone #2/3-5 for UTI pending urine culture -10/30 SP IV Vancomycin and Unasyn #7 -10/27 SP Clindamycin #3 -f/u cx -Monitor CBC/CMP, temperatures -GI, Podiatry f/u -wound care Subjective Allergies: Coded Allergies: NO KNOWN ALLERGIES (Unverified Allergy, Unknown, 10/15/15) Subjective afebrile at RA no leukocytosis Objective Vital Signs Last 24 Hour Vital Signs Date Time Temp Pulse Resp B/P (MAP) Pulse Ox O2 Delivery O2 Flow Rate FiO2 11/12/18 09:00 Room Air 11/12/18 08:53 112/76 11/12/18 08:53 66 112/76 11/12/18 08:00 97.5 66 20 112/76 (88) 96 11/12/18 08:00 87 11/12/18 07:43 88 22 Room Air 21 11/12/18 07:43 Room Air 21 11/12/18 04:00 79 11/11/18 21:00 Room Air 11/11/18 20:00 81 11/11/18 19:27 Room Air 21 11/11/18 19:27 74 21 Room Air 21 18 17:23 98.1 11/11/18 16:00 85 11/11/18 15:42 98.1 80 19 158/80 (106) 98 Height (Feet): 5 Height (Inches): 9.00 Weight (Pounds): 332 Objective General Appearance: WD/WN, no apparent distress Lines, tubes and drains: peripheral HEENT: normocephalic, atraumatic Neck: non-tender, normal alignment Respiratory/Chest: chest wall non-tender, lungs clear Cardiovascular/Chest: normal peripheral pulses Abdomen: normal bowel sounds, non tender Genitourinary/Rectal: normal genital exam Extremities: normal range of motion Microbiology Date/Time Source Procedure Growth Status 11/11/18 10:35 Urine,Clean Catch Urine Culture - Preliminary NO GROWTH Resulted Current Medications Medications (Trade) Dose Ordered Sig/Josi Route PRN Reason Start Time Stop Time Status Last Admin Dose Admin Acetaminophen (Tylenol) 650 mg Q4H PRN ORAL Mild Pain/Temp > 100.5 11/06/18 06:15 12/06/18 06:14 Amlodipine Besylate (Norvasc) 10 mg DAILY ORAL 11/09/18 09:00 12/06/18 08:59 11/12/18 08:53 Atorvastatin Calcium (Lipitor) 10 mg BEDTIME ORAL 11/07/18 21:00 12/06/18 20:59 11/11/18 21:32 Ceftriaxone Sodium 1 gm/ Dextrose 55 ml @ 110 mls/hr DAILY IVPB 11/11/18 13:30 11/18/18 13:29 11/12/18 09:40 Clonidine HCl (Catapres Tab) 0.1 mg Q4H PRN ORAL For High Blood Pressure 11/06/18 06:15 12/06/18 06:14 11/09/18 06:49 Dextrose (Dextrose 50%) STAT PRN IV Hypoglycemia 11/06/18 06:15 12/06/18 06:14 Diphenhydramine HCl (Benadryl) 50 mg Q6H PRN ORAL Itching 11/08/18 18:00 12/08/18 17:59 11/12/18 06:17 Docusate Sodium (Colace) 100 mg THREE TIMES A DAY ORAL 11/07/18 13:00 12/07/18 12:59 11/12/18 08:53 Epoetin Jose De Jesus (Procrit (for ESRD on dialysis)) 20,000 units SUN-SUN-SUN SUBQ 11/11/18 21:00 12/06/18 20:59 11/11/18 21:34 Gabapentin (Neurontin) 400 mg TWICE A DAY ORAL 11/06/18 09:00 12/06/18 08:59 11/12/18 08:54 Heparin Sodium (Porcine) (Heparin 5000 units/ml) 5,000 units EVERY 12 HOURS SUBQ 11/06/18 09:00 12/06/18 08:59 11/12/18 08:56 Insulin Aspart (NovoLOG) BEFORE MEALS AND HS SUBQ 11/06/18 07:30 12/06/18 07:29 11/12/18 12:06 Iron Sucrose 100 mg/Sodium Chloride 55 ml @ 200 mls/hr BEDTIME IV 11/08/18 21:00 11/17/18 21:17 11/11/18 21:32 Lisinopril (Zestril) 10 mg DAILY ORAL 11/09/18 09:00 12/06/18 08:59 11/12/18 08:53 Morphine Sulfate (Morphine Sulfate) 1 mg Q4H PRN IVP FOR SEVERE PAIN (7-10) 11/06/18 07:15 11/13/18 06:14 11/11/18 16:53 Ondansetron HCl (Zofran) 4 mg Q6H PRN IVP Nausea & Vomiting 11/06/18 06:15 12/06/18 06:14 Pantoprazole (Protonix) 40 mg EVERY 12 HOURS ORAL 11/07/18 21:00 12/07/18 20:59 11/12/18 08:53 Phenazopyridine HCl (Pyridium) 100 mg THREE TIMES A DAY ORAL 11/12/18 13:00 12/12/18 12:59 Polyethylene Glycol (Miralax) 17 gm HSPRN PRN ORAL Constipation 11/06/18 06:15 12/06/18 06:14 Pyridoxine HCl (Vitamin B6) 50 mg DAILY ORAL 11/09/18 12:00 12/09/18 11:59 11/12/18 08:54 Sevelamer Carbonate (Renvela) 1,600 mg THREE TIMES A DAY ORAL 11/09/18 13:00 12/06/18 08:59 11/12/18 08:54 Thiamine HCl (Vitamin B1) 100 mg DAILY ORAL 11/09/18 12:00 12/09/18 11:59 11/12/18 08:53 Tramadol HCl (Ultram) 50 mg Q6H PRN ORAL FOR MODERATE PAIN (4-6) 11/06/18 06:15 11/13/18 06:14 11/12/18 06:13 Vitamin B Complex/ Vit C/Folic Acid (Nephrovite) 1 tab DAILY ORAL 11/10/18 09:00 12/10/18 08:59 11/12/18 08:54 Zolpidem Tartrate (Ambien) 5 mg HSPRN PRN ORAL Insomnia 11/06/18 06:15 11/13/18 06:14 11/09/18 21:52 Susi Vanegas M.D. Nov 12, 2018 12:21
--- NOTE | 2018-11-12 12:25 | General Progress Note ---
Assessment/Plan Status: stable Assessment/Plan # Anemia of chronic disease due to underlying chronic medical issues, multifactorial. 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 Hx of esrd on hd. --> Trend Hgb remains low at 6.5 --> 6.6 --> 7.1-->6.8 --> Prior anemia w/u has been reviewed. Ferritin >2000 --> No evidence of hemolysis is noted, peripheral smear has been reviewed. --> Hgb goal >7. Transfuse prn. --> EGD 10/24 --> off heparin sq at this time, is on scds --> bone marrow biopsy that can be done as an outpatient. agree with pcp --> EPOGEN 20k three times a week since patient is a Bahai ( appreciate nephro recs) # Anemia of chronic kidney disease. --> Je[employer] Witness and does not take any blood products --> on epogen, will continue --> would refrain from iv iron, since is overloaded --> b1, b12, folate as outpatient as well # End-stage renal disease on hemodialysis. Nephro is following, appreciate recs. --> The patient is on hemodialysis # Mild hyperkalemia, potassium 6.2 on admission --> Currently remains elevated at 5.2--> improves with HD --> HD 3x a week --> appreciate nephro recs # Hypertension. Cardiology is following, appreciate recs. --> most recent test was negative per Dr. Vinson --> Adjust medications as needed --> bp control # Diabetes mellitus per primary care physician. --> Cont on insulin --> Cont to monitor BS levels # Back pain -- consider pain service eval as required --> opiates as needed, imaging to eval : GREATLY APPRECIATE CONSULTATION. Subjective Date patient seen: Nov 12, 2018 Hematologic/Lymphatic: Reports: anemia Allergies: Coded Allergies: NO KNOWN ALLERGIES (Unverified Allergy, Unknown, 10/15/15) All Systems: reviewed and negative except above Subjective Pt awake and alert. No acute events. VS stable. Objective Last 24 Hour Vital Signs Date Time Temp Pulse Resp B/P (MAP) Pulse Ox O2 Delivery O2 Flow Rate FiO2 11/12/18 09:00 Room Air 11/12/18 08:53 112/76 12/18/18 08:53 66 112/76 11/12/18 08:00 97.5 66 20 112/76 (88) 96 11/12/18 08:00 87 11/12/18 07:43 88 22 Room Air 21 11/12/18 07:43 Room Air 21 11/12/18 04:00 79 11/11/18 21:00 Room Air 11/11/18 20:00 81 11/11/18 19:27 Room Air 21 11/11/18 19:27 74 21 Room Air 21 11/11/18 17:23 98.1 11/11/18 16:00 85 11/11/18 15:42 98.1 80 19 158/80 (106) 98 Intake and Output 11/11/18 11/12/18 19:00 07:00 Intake Total 830 ml Balance 830 ml Intake Oral 720 ml IV Total 110 ml # Voids 1 3 Height (Feet): 5 Height (Inches): 9.00 Weight (Pounds): 332 Objective PHYSICAL EXAMINATION: VITAL SIGNS: Have been reviewed. GENERAL: The patient awake, alert, in mild distress. HEENT: Extraocular muscles intact. No lymphadenopathy noted. CARDIOVASCULAR: S1 and S2. No rubs or gallops. PULMONARY: Clear to auscultation bilaterally. No rales, rhonchi or wheezes. ABDOMINAL: Obese, nondistended and nontender. EXTREMITIES: 1-2+ pitting edema. Malick Lizama MD Nov 12, 2018 12:25
[2018-11-12 12:46] LABS: HEMATOCRIT 22.8 % (37.0-47.0); MEAN CORPUSCULAR VOLUME 85 FL (80-99); PLATELET COUNT 187 K/UL (150-450); RED CELL DISTRIBUTION WIDTH 20.7 % (11.6-14.8); WHITE BLOOD COUNT 9.6 K/UL (4.8-10.8)
[2018-11-12 12:47] LABS: HEMOGLOBIN 6.6 G/DL (12.0-16.0)
[2018-11-12 12:57] LABS: ANION GAP 14 mmol/L (5-15); BLOOD UREA NITROGEN 77 mg/dL (7-18); CALCIUM 8.5 MG/DL (8.5-10.1); CARBON DIOXIDE 23 MMOL/L (21-32); CHLORIDE 92 MMOL/L (98-107); CREATININE 11.1 MG/DL (0.55-1.30); PHOSPHORUS 6.2 MG/DL (2.5-4.9); SODIUM 129 MMOL/L (136-145)
--- NOTE | 2018-11-12 14:03 | General Progress Note ---
Assessment/Plan Problem List: (1) Congestive heart failure (CHF) ICD Codes: I50.9 - Heart failure, unspecified SNOMED: 16545015 (2) Open wound of right great toe ICD Codes: S91.101A - Unspecified open wound of right great toe without damage to nail, initial encounter SNOMED: 046040939 (3) Back pain ICD Codes: M54.9 - Dorsalgia, unspecified SNOMED: 537619368 (4) General weakness ICD Codes: R53.1 - Weakness SNOMED: 43509982 (5) ESRD (end stage renal disease) on dialysis ICD Codes: N18.6 - End stage renal disease; Z99.2 - Dependence on renal dialysis SNOMED: 526991373 (6) Diabetes mellitus type 2 with neurological manifestations ICD Codes: E11.49 - Type 2 diabetes mellitus with other diabetic neurological complication SNOMED: 63730448, 893359616 (7) Anemia ICD Codes: D64.9 - Anemia, unspecified SNOMED: 656119919 (8) Intractable back pain ICD Codes: M54.9 - Dorsalgia, unspecified SNOMED: 445877129 (9) Pancreatitis ICD Codes: K85.90 - Acute pancreatitis without necrosis or infection, unspecified SNOMED: 51139829 (10) Hypertension ICD Codes: I10 - Essential (primary) hypertension SNOMED: 70046812 (11) Morbid obesity ICD Codes: E66.01 - Morbid (severe) obesity due to excess calories SNOMED: 117539228, 78818341561872 Status: unchanged Assessment/Plan o2 pulm tx abx wound care dialysis cbc bmp am brotman aru eval Subjective Constitutional: Reports: weakness Respiratory: Reports: shortness of breath Allergies: Coded Allergies: NO KNOWN ALLERGIES (Unverified Allergy, Unknown, 10/15/15) All Systems: reviewed and negative except above Subjective o2nc sleeping Objective Last 24 Hour Vital Signs Date Time Temp Pulse Resp B/P (MAP) Pulse Ox O2 Delivery O2 Flow Rate FiO2 11/12/18 09:00 Room Air 18 08:53 112/76 18 08:53 66 112/76 11/12/18 08:00 97.5 66 20 112/76 (88) 96 11/12/18 08:00 87 11/12/18 07:43 88 22 Room Air 21 11/12/18 07:43 Room Air 21 11/12/18 04:00 79 11/11/18 21:00 Room Air 11/11/18 20:00 81 18 19:27 Room Air 21 11/11/18 19:27 74 21 Room Air 21 11/11/18 17:23 98.1 11/11/18 16:00 85 11/11/18 15:42 98.1 80 19 158/80 (106) 98 Intake and Output 11/11/18 11/12/18 19:00 07:00 Intake Total 830 ml Balance 830 ml Intake Oral 720 ml IV Total 110 ml # Voids 1 3 Laboratory Tests 11/12/18 12:35: White Blood Count 9.6, Red Blood Count 2.70L, Hemoglobin 6.6*L, Hematocrit 22.8L , Mean Corpuscular Volume 85, Mean Corpuscular Hemoglobin 24.6L, Mean Corpuscular Hemoglobin Concent 29.1L, Red Cell Distribution Width 20.7H, Platelet Count 187, Mean Platelet Volume 5.7L, Neutrophils (%) (Auto) , Lymphocytes (%) (Auto) , Monocytes (%) (Auto) , Eosinophils (%) (Auto) , Basophils (%) (Auto) , Neutrophils % (Manual) [Pending], Lymphocytes % (Manual) [Pending], Platelet Estimate [Pending], Platelet Morphology [Pending], Sodium Level 129L, Potassium Level 5.0, Chloride Level 92L, Carbon Dioxide Level 23, Anion Gap 14, Blood Urea Nitrogen 77H, Creatinine 11.1H, Estimat Glomerular Filtration Rate 4.2, Glucose Level 162H, Calcium Level 8.5, Phosphorus Level 6.2H, Magnesium Level 2.7H Height (Feet): 5 Height (Inches): 9.00 Weight (Pounds): 332 General Appearance: lethargic EENT: normal ENT inspection Neck: normal alignment Cardiovascular: normal peripheral pulses, normal rate, regular rhythm Respiratory/Chest: chest wall non-tender, decreased breath sounds Abdomen: normal bowel sounds, non tender, soft Extremities: normal inspection Edema: 1+ Arm (L), 1+ Arm (R), 1+ Leg (L), 1+ Leg (R), 1+ Pedal (L), 1+ Pedal ( R), 1+ Generalized Neurologic: motor weakness Skin: normal pigmentation, warm/dry Roderick Henning DO Nov 12, 2018 14:03
--- NOTE | 2018-11-12 14:15 | GI Progress Note ---
Assessment/Plan Problems: (1) Pancreatitis ICD Codes: K85.90 - Acute pancreatitis without necrosis or infection, unspecified SNOMED: 32208679 (2) Anemia ICD Codes: D64.9 - Anemia, unspecified SNOMED: 480484042 (3) End stage renal disease on dialysis ICD Codes: N18.6 - End stage renal failure on dialysis; Z99.2 - Dependence on renal dialysis SNOMED: 630721899 Status: stable Status Narrative Discussed with Dr. Garcia. Assessment/Plan Hx of recent colonoscopy at [facility] which was unremarkable s/p EGD >> gastritis, no active source of bleeding Elevated lipase Normal triglyceride levels CTAP ordered, pancreatic protocol >> unable to be performed due to the patient' s weight Patient's lipase levels continue to be elevated, endoscopic ultrasound if still inpatient advance diet as tolerated pain mgmt ppi zofran prn Trend lipase fu labs, SASKIA, IgG1-4 The patient was seen and examined at bedside and all new and available data was reviewed in the patients chart. I agree with the above findings, impression and plan. (Patient seen earlier today. Signature stamp does not reflect patient encounter time.). - Jamison Garcia MD Subjective Subjective Denies any abdominal pain Objective Last 24 Hour Vital Signs Date Time Temp Pulse Resp B/P (MAP) Pulse Ox O2 Delivery O2 Flow Rate FiO2 11/12/18 09:00 Room Air 11/12/18 08:53 112/76 11/12/18 08:53 66 112/76 11/12/18 08:00 97.5 66 20 112/76 (88) 96 11/12/18 08:00 87 11/12/18 07:43 88 22 Room Air 21 11/12/18 07:43 Room Air 21 11/12/18 04:00 79 11/11/18 21:00 Room Air 11/11/18 20:00 81 11/11/18 19:27 Room Air 21 11/11/18 19:27 74 21 Room Air 21 11/11/18 17:23 98.1 11/11/18 16:00 85 11/11/18 15:42 98.1 80 19 158/80 (106) 98 Intake and Output 11/11/18 11/12/18 19:00 07:00 Intake Total 830 ml Balance 830 ml Intake Oral 720 ml IV Total 110 ml # Voids 1 3 Laboratory Tests Test 11/12/18 12:35 White Blood Count 9.6 K/UL (4.8-10.8) Red Blood Count 2.70 M/UL (4.20-5.40) L Hemoglobin 6.6 G/DL (12.0-16.0) *L Hematocrit 22.8 % (37.0-47.0) L Mean Corpuscular Volume 85 FL (80-99) Mean Corpuscular Hemoglobin 24.6 PG (27.0-31.0) L Mean Corpuscular Hemoglobin Concent 29.1 G/DL (32.0-36.0) L Red Cell Distribution Width 20.7 % (11.6-14.8) H Platelet Count 187 K/UL (150-450) Mean Platelet Volume 5.7 FL (6.5-10.1) L Neutrophils (%) (Auto) % (45.0-75.0) Lymphocytes (%) (Auto) % (20.0-45.0) Monocytes (%) (Auto) % (1.0-10.0) Eosinophils (%) (Auto) % (0.0-3.0) Basophils (%) (Auto) % (0.0-2.0) Neutrophils % (Manual) Pending Lymphocytes % (Manual) Pending Platelet Estimate Pending Platelet Morphology Pending Sodium Level 129 MMOL/L (136-145) L Potassium Level 5.0 MMOL/L (3.5-5.1) Chloride Level 92 MMOL/L (98-107) L Carbon Dioxide Level 23 MMOL/L (21-32) Anion Gap 14 mmol/L (5-15) Blood Urea Nitrogen 77 mg/dL (7-18) H Creatinine 11.1 MG/DL (0.55-1.30) H Estimat Glomerular Filtration Rate 4.2 mL/min (>60) Glucose Level 162 MG/DL (74-106) H Calcium Level 8.5 MG/DL (8.5-10.1) Phosphorus Level 6.2 MG/DL (2.5-4.9) H Magnesium Level 2.7 MG/DL (1.8-2.4) H Height (Feet): 5 Height (Inches): 9.00 Weight (Pounds): 332 General Appearance: WD/WN, no apparent distress, alert, morbidly obese Cardiovascular: normal rate Respiratory/Chest: normal breath sounds, no respiratory distress Abdominal Exam: normal bowel sounds, non tender, soft Extremities: normal range of motion, non-tender Jaime Martin NP Nov 12, 2018 14:15
[2018-11-12 16:00] VITALS: BP 131/73
[2018-11-12] MEDS: Morphine Sulfate 2mg/ml Inj IVP PRN ×2 (16:46→21:46)
[2018-11-12] MEDS ORDERED: Tubing IV Secondary IV ONE (17:17)
[2018-11-12] MEDS ORDERED: NS 275ml ONE (17:17)
[2018-11-12 20:00] VITALS: BP 142/77
[2018-11-13] VITALS: BP 146/63
--- NOTE | 2018-11-13 00:15 | Consultation ---
DATE OF CONSULTATION: 11/10/2018 CONSULTING PHYSICIAN: Iker Lawrence M.D. HISTORY OF PRESENT ILLNESS: This is a 63-year-old female patient with back pain and weakness, but she has a little bit of anxiety, confusion, and altered mental status, worsened by the stress of her medical illness. That is why there was a daily psychiatric consultation requested for this patient to be seen. This patient is confused. She has some mood lability, confusion, and disorganized. Thought process is declining. That is why her attending has requested daily psychiatric consultation because of her decline in cognition below baseline. ALLERGIES: The patient has no known drug allergies at this time. MEDICAL PROBLEMS: Back pain and generalized weakness. She has congestive heart failure, back pain, , diabetes, and hypertension. PSYCHOTROPIC MEDICATIONS ON ADMISSION: The patient is on Ativan as needed and Neurontin 300 mg three times a day. SUBSTANCE ABUSE HISTORY: Denies drug or alcohol use. FAMILY PSYCHIATRIC HISTORY: Denies. PAIN ASSESSMENT: 0/10. DEVELOPMENTAL PROBLEMS: Denies. SOCIAL HISTORY: The patient was recently discharged from [facility]. Now, she lives in a private residence. Financially supported by [employer] and Medicare. PSYCHIATRIC HISTORY: Generalized anxiety disorder, depression, rule out dementia with psychosis. That is why she does require inpatient treatment at this time. As far as this patient's psychiatric history, the patient has seen multiple psychiatric consultations for anxiety and depression even at her facility at [facility]. STRENGTHS: She is motivated to get better and she has a place to live. WEAKNESSES: She is impulsive with minimal support system. MENTAL STATUS EXAMINATION: This is a 63-year-old female patient. Her appearance is slightly disheveled. Attitude, irritable and agitated. Affect is guarded and restricted. Intellect poor. She does not know current events and does not know last four Presidents. Mood is depressed and anxious. Motor activity, slight psychomotor agitation. Attention span is fair. She is able to do serial 7s forwards and backwards. Orientation x3, person, place, and time, but not to situation. As far as her speech, it is normal volume. Thought process is linear and goal directed. Thought content, denies auditory or visual hallucinations or delusions and her insight and judgment is fair. Short-term memory 3/3 with recall after 5 minutes delay with good short-term memory. Long-term memory is intact . DIAGNOSIS: Major depressive disorder, mild, recurrent, rule out generalized anxiety disorder. PLAN: Plan for this patient is to treat the patient with medications to prevent any further decline in her cognition. She will continue to be followed by Psychiatry throughout hospital course. A 20-minutes of cognitive behavioral therapy provided to help identify automatic negative thoughts and help her to convert those negative thoughts to more positive thinking to reduce depression, anxiety, and suicidality. Encouraged her to interact appropriately with staff and other patients and also for this patient I am going to provide 20 minutes of cognitive therapy to help the patient identify automatic negative thoughts and help her to convert those negative thoughts to more positive thinking to reduce depression, anxiety, and mood lability. Also, I am going to start back her on Neurontin 300 mg three times a day for anxiety and provided approximately 20 minutes cognitive behavior therapy also to help her with her behavior and have a more adaptive behavioral pattern. Chart was reviewed and discussed with staff. The patient seen and assessed in her room. Iker Lawrence M.D. DR: VAN JOB#: [id number] CC:
--- NOTE | 2018-11-13 02:45 | Consultation ---
DATE OF CONSULTATION: 11/12/2018 HISTORY OF PRESENT ILLNESS: This is a 63-year-old female, confused and disorganized. Mood is labile. She has got no logical plan for her own-self care. therefore, this consultation is requested for this patient to be seen. MEDICAL PROBLEMS: She has back pain, weakness, and neuropathy. ALLERGIES: She has no known drug allergies at this time. PSYCHOTROPIC MEDICATIONS ON ADMISSION: Neurontin. SUBSTANCE ABUSE HISTORY: Denies. PAIN HISTORY: Pain is less than 3/10 pain. DEVELOPMENTAL PROBLEMS: Denies. SOCIAL HISTORY: She was living at [facility], but now lives in a she was recently discharged from [facility]. PSYCHIATRIC HISTORY: History of depression and anxiety. STRENGTHS: She is motivated to get better and has a place to live. WEAKNESSES: She is impulsive and minimal support system. MENTAL STATUS EXAMINATION: A 63-year-old female. Appearance disheveled. Attitude, irritable and agitated. Affect, guarded and restricted. Intellect poor. Mood, depressed and anxious. Motor activity, psychomotor retardation. Mood is anxious. Affect, guarded and restricted. Intellect poor. Mood, depressed and anxious. Denies suicidal or homicidal thoughts. Insight and judgment are poor. DIAGNOSIS: Major depressive disorder, mild, recurrent without psychotic features. Medical, back pain. Psychosocial stressors, financial. PLAN: I am going to add Neurontin 300 mg three times a day to help with her anxiety. Provided with 20 minutes of cognitive behavior therapy to help identify her automatic negative thoughts and help her to covert those negative thoughts to more positive thinking to reduce depression, anxiety with a more adaptive behavioral pattern. Iker Lawrence M.D. DR: TEMO JOB#: [id number] CC:
[2018-11-13 04:00] VITALS: BP 131/86
[2018-11-13] MEDS: NovoLOG Insulin Flexpen SUBQ SCH ×4 (06:49→23:08)
[2018-11-13 08:00] VITALS: BP 167/70
[2018-11-13 08:01] LABS: HEMATOCRIT 24.6 % (37.0-47.0); HEMOGLOBIN 7.1 G/DL (12.0-16.0); MEAN CORPUSCULAR VOLUME 85 FL (80-99); PLATELET COUNT 201 K/UL (150-450); RED BLOOD COUNT 2.91 M/UL (4.20-5.40); RED CELL DISTRIBUTION WIDTH 21.1 % (11.6-14.8); WHITE BLOOD COUNT 8.8 K/UL (4.8-10.8)
[2018-11-13 08:09] LABS: ANION GAP 13 mmol/L (5-15); BLOOD UREA NITROGEN 55 mg/dL (7-18); CALCIUM 8.7 MG/DL (8.5-10.1); CARBON DIOXIDE 25 MMOL/L (21-32); CHLORIDE 96 MMOL/L (98-107); POTASSIUM 4.5 MMOL/L (3.5-5.1); SODIUM 134 MMOL/L (136-145)
[2018-11-13 08:31] LABS: AMYLASE 83 U/L (25-115)
[2018-11-13] MEDS: Docusate 100mg cap ORAL SCH ×3 (09:01→17:03)
[2018-11-13] MEDS: Pyridoxine 50mg tab ORAL SCH (09:01)
[2018-11-13] MEDS: Lisinopril 10mg tab ORAL SCH (09:01)
[2018-11-13] MEDS: Thiamine 100mg tab ORAL SCH (09:02)
[2018-11-13] MEDS: Nephrovite tab (Rena-Vite) ORAL SCH (09:02)
[2018-11-13] MEDS: Heparin 5000 units/ml inj SUBQ SCH ×2 (09:07→21:00)
[2018-11-13] MEDS: cefTRIAXone 1 GM in D5W 55 ML IVPB SCH (09:08)
--- NOTE | 2018-11-13 10:38 | GI Progress Note ---
Assessment/Plan Problems: (1) Pancreatitis ICD Codes: K85.90 - Acute pancreatitis without necrosis or infection, unspecified SNOMED: 16521903 (2) Anemia ICD Codes: D64.9 - Anemia, unspecified SNOMED: 257749372 (3) End stage renal disease on dialysis ICD Codes: N18.6 - End stage renal failure on dialysis; Z99.2 - Dependence on renal dialysis SNOMED: 068426069 Status: stable, progressing Status Narrative Discussed with Dr. Garcia. Assessment/Plan Hx of recent colonoscopy at [facility] which was unremarkable s/p EGD >> gastritis, no active source of bleeding Elevated lipase >> downtrending Normal triglyceride levels CTAP ordered, pancreatic protocol >> unable to be performed due to the patient' s weight advance diet as tolerated pain mgmt ppi zofran prn Trend lipase fu labs, SASKIA, IgG1-4 okay for DC per GI standpoint needs outpatient follow up for pancreatitis and EUS The patient was seen and examined at bedside and all new and available data was reviewed in the patients chart. I agree with the above findings, impression and plan. (Patient seen earlier today. Signature stamp does not reflect patient encounter time.). - Jamison Garcia MD Subjective Subjective Denies any abdominal pain no nausea or vomiting Objective Last 24 Hour Vital Signs Date Time Temp Pulse Resp B/P (MAP) Pulse Ox O2 Delivery O2 Flow Rate FiO2 11/13/18 09:01 167/70 11/13/18 09:01 86 167/70 11/13/18 09:00 Room Air 11/13/18 08:00 97.3 86 21 167/70 (102) 97 11/13/18 07:00 75 24 Room Air 21 11/13/18 04:08 Room Air 21 11/13/18 04:07 57 24 Room Air 21 11/13/18 04:00 69 11/13/18 04:00 98.1 65 12 131/86 (101) 96 11/13/18 00:00 98.1 83 17 146/63 (90) 96 11/13/18 00:00 85 11/12/18 21:00 Room Air 11/12/18 20:00 98.0 78 20 142/77 (98) 97 11/12/18 20:00 79 11/12/18 16:00 70 11/12/18 16:00 97.3 70 22 131/73 (92) 97 11/12/18 12:00 97.6 79 22 146/73 (97) 97 11/12/18 12:00 74 Intake and Output 11/12/18 11/13/18 19:00 07:00 Intake Total 460 ml 200 ml Balance 460 ml 200 ml Intake Oral 460 ml 200 ml # Bowel Movements 1 Laboratory Tests Test 11/12/18 12:35 11/13/18 07:31 White Blood Count 9.6 K/UL (4.8-10.8) 8.8 K/UL (4.8-10.8) Red Blood Count 2.70 M/UL (4.20-5.40) L 2.91 M/UL (4.20-5.40) L Hemoglobin 6.6 G/DL (12.0-16.0) *L 7.1 G/DL (12.0-16.0) L Hematocrit 22.8 % (37.0-47.0) L 24.6 % (37.0-47.0) L Mean Corpuscular Volume 85 FL (80-99) 85 FL (80-99) Mean Corpuscular Hemoglobin 24.6 PG (27.0-31.0) L 24.5 PG (27.0-31.0) L Mean Corpuscular Hemoglobin Concent 29.1 G/DL (32.0-36.0) L 29.0 G/DL (32.0-36.0) L Red Cell Distribution Width 20.7 % (11.6-14.8) H 21.1 % (11.6-14.8) H Platelet Count 187 K/UL (150-450) 201 K/UL (150-450) Mean Platelet Volume 5.7 FL (6.5-10.1) L 6.9 FL (6.5-10.1) Neutrophils (%) (Auto) % (45.0-75.0) % (45.0-75.0) Lymphocytes (%) (Auto) % (20.0-45.0) % (20.0-45.0) Monocytes (%) (Auto) % (1.0-10.0) % (1.0-10.0) Eosinophils (%) (Auto) % (0.0-3.0) % (0.0-3.0) Basophils (%) (Auto) % (0.0-2.0) % (0.0-2.0) Differential Total Cells Counted 100 100 Neutrophils % (Manual) 60 % (45-75) 57 % (45-75) Lymphocytes % (Manual) 15 % (20-45) L 17 % (20-45) L Monocytes % (Manual) 9 % (1-10) 11 % (1-10) H Eosinophils % (Manual) 15 % (0-3) H 15 % (0-3) H Basophils % (Manual) 0 % (0-2) 0 % (0-2) Band Neutrophils 1 % (0-8) 0 % (0-8) Platelet Estimate Adequate Adequate Platelet Morphology Normal Normal Polychromasia 1+ 1+ Hypochromasia 4+ 2+ Poikilocytosis 1+ Anisocytosis 3+ 3+ Sodium Level 129 MMOL/L (136-145) L 134 MMOL/L (136-145) L Potassium Level 5.0 MMOL/L (3.5-5.1) 4.5 MMOL/L (3.5-5.1) Chloride Level 92 MMOL/L (98-107) L 96 MMOL/L (98-107) L Carbon Dioxide Level 23 MMOL/L (21-32) 25 MMOL/L (21-32) Anion Gap 14 mmol/L (5-15) 13 mmol/L (5-15) Blood Urea Nitrogen 77 mg/dL (7-18) H 55 mg/dL (7-18) H Creatinine 11.1 MG/DL (0.55-1.30) H 9.0 MG/DL (0.55-1.30) H Estimat Glomerular Filtration Rate 4.2 mL/min (>60) 5.5 mL/min (>60) Glucose Level 162 MG/DL (74-106) H 132 MG/DL (74-106) H Calcium Level 8.5 MG/DL (8.5-10.1) 8.7 MG/DL (8.5-10.1) Phosphorus Level 6.2 MG/DL (2.5-4.9) H Magnesium Level 2.7 MG/DL (1.8-2.4) H Amylase Level 83 U/L (25-115) Lipase 507 U/L (73-393) H Height (Feet): 5 Height (Inches): 9.00 Weight (Pounds): 331 General Appearance: WD/WN, no apparent distress, alert, obese Cardiovascular: normal rate Respiratory/Chest: normal breath sounds, no respiratory distress Abdominal Exam: normal bowel sounds, non tender, soft Extremities: normal range of motion, non-tender Jaime Martin NP Nov 13, 2018 10:38
[2018-11-13 12:00] VITALS: BP 143/66
[2018-11-13] MEDS ORDERED: HYDROcodone/Acetamin 10/325 tab ORAL PRN (12:00)
--- NOTE | 2018-11-13 12:20 | Pulmonology Progress Note ---
Assessment/Plan Problems: (1) Intractable back pain (2) Lumbar radiculopathy (3) End stage renal disease on dialysis (4) Coronary artery disease (5) ESRD (end stage renal disease) on dialysis (6) Blindness of both eyes (7) Anemia Assessment/Plan c/o right foot pain symptomatic treatment pain management HD by nephrology check electrolytes abx as per ID all reviewed Subjective ROS Limited/Unobtainable: No Constitutional: Reports: no symptoms HEENT: Repors: no symptoms Respiratory: Reports: no symptoms Allergies: Coded Allergies: NO KNOWN ALLERGIES (Unverified Allergy, Unknown, 10/15/15) Objective Last 24 Hour Vital Signs Date Time Temp Pulse Resp B/P (MAP) Pulse Ox O2 Delivery O2 Flow Rate FiO2 11/13/18 11:08 165/72 11/13/18 09:01 167/70 11/13/18 09:01 86 167/70 11/13/18 09:00 Room Air 11/13/18 08:00 97.3 86 21 167/70 (102) 97 11/13/18 07:00 75 24 Room Air 21 11/13/18 04:08 Room Air 21 11/13/18 04:07 57 24 Room Air 21 11/13/18 04:00 69 11/13/18 04:00 98.1 65 12 131/86 (101) 96 11/13/18 00:00 98.1 83 17 146/63 (90) 96 11/13/18 00:00 85 11/12/18 21:00 Room Air 11/12/18 20:00 98.0 78 20 142/77 (98) 97 11/12/18 20:00 79 11/12/18 16:00 70 11/12/18 16:00 97.3 70 22 131/73 (92) 97 Intake and Output 11/12/18 11/13/18 19:00 07:00 Intake Total 460 ml 200 ml Balance 460 ml 200 ml Intake Oral 460 ml 200 ml # Bowel Movements 1 General Appearance: WD/WN HEENT: normocephalic, atraumatic Respiratory/Chest: chest wall non-tender, lungs clear Breasts: no masses Cardiovascular: normal peripheral pulses Abdomen: normal bowel sounds, soft, non tender Genitourinary: normal external genitalia Extremities: no cyanosis Skin: no rash 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 Microbiology Date/Time Source Procedure Growth Status 11/11/18 10:35 Urine,Clean Catch Urine Culture - Preliminary Resulted Laboratory Tests 11/12/18 12:35: White Blood Count 9.6, Red Blood Count 2.70L, Hemoglobin 6.6*L, Hematocrit 22.8L , Mean Corpuscular Volume 85, Mean Corpuscular Hemoglobin 24.6L, Mean Corpuscular Hemoglobin Concent 29.1L, Red Cell Distribution Width 20.7H, Platelet Count 187, Mean Platelet Volume 5.7L, Neutrophils (%) (Auto) , Lymphocytes (%) (Auto) , Monocytes (%) (Auto) , Eosinophils (%) (Auto) , Basophils (%) (Auto) , Differential Total Cells Counted 100, Neutrophils % ( Manual) 60, Lymphocytes % (Manual) 15L, Monocytes % (Manual) 9, Eosinophils % ( Manual) 15H, Basophils % (Manual) 0, Band Neutrophils 1, Platelet Estimate Adequate, Platelet Morphology Normal, Polychromasia 1+, Hypochromasia 4+, Poikilocytosis 1+, Anisocytosis 3+, Sodium Level 129L, Potassium Level 5.0, Chloride Level 92L, Carbon Dioxide Level 23, Anion Gap 14, Blood Urea Nitrogen 77H, Creatinine 11.1H, Estimat Glomerular Filtration Rate 4.2, Glucose Level 162H, Calcium Level 8.5, Phosphorus Level 6.2H, Magnesium Level 2.7H 11/13/18 07:31: White Blood Count 8.8, Red Blood Count 2.91L, Hemoglobin 7.1L, Hematocrit 24.6L , Mean Corpuscular Volume 85, Mean Corpuscular Hemoglobin 24.5L, Mean Corpuscular Hemoglobin Concent 29.0L, Red Cell Distribution Width 21.1H, Platelet Count 201, Mean Platelet Volume 6.9, Neutrophils (%) (Auto) , Lymphocytes (%) (Auto) , Monocytes (%) (Auto) , Eosinophils (%) (Auto) , Basophils (%) (Auto) , Differential Total Cells Counted 100, Neutrophils % ( Manual) 57, Lymphocytes % (Manual) 17L, Monocytes % (Manual) 11H, Eosinophils % (Manual) 15H, Basophils % (Manual) 0, Band Neutrophils 0, Platelet Estimate Adequate, Platelet Morphology Normal, Polychromasia 1+, Hypochromasia 2+, Anisocytosis 3+, Sodium Level 134L, Potassium Level 4.5, Chloride Level 96L, Carbon Dioxide Level 25, Anion Gap 13, Blood Urea Nitrogen 55H, Creatinine 9.0H , Estimat Glomerular Filtration Rate 5.5, Glucose Level 132H, Calcium Level 8.7 , Amylase Level 83, Lipase 507H Current Medications Medications (Trade) Dose Ordered Sig/Josi Route PRN Reason Start Time Stop Time Status Last Admin Dose Admin Acetaminophen (Tylenol) 650 mg Q4H PRN ORAL Mild Pain/Temp > 100.5 11/06/18 06:15 12/06/18 06:14 Acetaminophen/ Hydrocodone Bitart ([place] 10/325) 1 tab Q4H PRN ORAL For Pain 11/13/18 12:00 11/20/18 11:59 Amlodipine Besylate (Norvasc) 10 mg DAILY ORAL 11/09/18 09:00 12/06/18 08:59 11/13/18 09:01 Atorvastatin Calcium (Lipitor) 10 mg BEDTIME ORAL 11/07/18 21:00 12/06/18 20:59 11/12/18 21:20 Ceftriaxone Sodium 1 gm/ Dextrose 55 ml @ 110 mls/hr DAILY IVPB 11/11/18 13:30 11/18/18 13:29 11/13/18 09:08 Clonidine HCl (Catapres Tab) 0.1 mg Q4H PRN ORAL For High Blood Pressure 11/06/18 06:15 12/06/18 06:14 11/13/18 11:08 Dextrose (Dextrose 50%) STAT PRN IV Hypoglycemia 11/06/18 06:15 12/06/18 06:14 Diphenhydramine HCl (Benadryl) 50 mg Q6H PRN ORAL Itching 11/08/18 18:00 12/08/18 17:59 11/12/18 06:17 Docusate Sodium (Colace) 100 mg THREE TIMES A DAY ORAL 11/07/18 13:00 12/07/18 12:59 11/13/18 09:01 Epoetin Jose De Jesus (Procrit (for ESRD on dialysis)) 20,000 units SUN-SUN-SUN SUBQ 11/11/18 21:00 12/06/18 20:59 11/11/18 21:34 Gabapentin (Neurontin) 300 mg THREE TIMES A DAY ORAL 11/12/18 18:00 12/12/18 17:59 11/13/18 09:01 Heparin Sodium (Porcine) (Heparin 5000 units/ml) 5,000 units EVERY 12 HOURS SUBQ 11/06/18 09:00 12/06/18 08:59 11/13/18 09:07 Insulin Aspart (NovoLOG) BEFORE MEALS AND HS SUBQ 11/06/18 07:30 12/06/18 07:29 11/13/18 11:44 Iron Sucrose 100 mg/Sodium Chloride 55 ml @ 200 mls/hr BEDTIME IV 11/08/18 21:00 11/17/18 21:17 11/12/18 21:23 Lisinopril (Zestril) 10 mg DAILY ORAL 11/09/18 09:00 12/06/18 08:59 11/13/18 09:01 Ondansetron HCl (Zofran) 4 mg Q6H PRN IVP Nausea & Vomiting 11/06/18 06:15 12/06/18 06:14 Pantoprazole (Protonix) 40 mg EVERY 12 HOURS ORAL 11/07/18 21:00 12/07/18 20:59 11/13/18 09:01 Phenazopyridine HCl (Pyridium) 100 mg THREE TIMES A DAY ORAL 11/12/18 13:00 12/12/18 12:59 11/13/18 09:02 Polyethylene Glycol (Miralax) 17 gm HSPRN PRN ORAL Constipation 11/06/18 06:15 12/06/18 06:14 Pyridoxine HCl (Vitamin B6) 50 mg DAILY ORAL 11/09/18 12:00 12/09/18 11:59 11/13/18 09:01 Sevelamer Carbonate (Renvela) 1,600 mg THREE TIMES A DAY ORAL 11/09/18 13:00 12/06/18 08:59 11/13/18 09:01 Thiamine HCl (Vitamin B1) 100 mg DAILY ORAL 11/09/18 12:00 12/09/18 11:59 11/13/18 09:02 Vitamin B Complex/ Vit C/Folic Acid (Nephrovite) 1 tab DAILY ORAL 11/10/18 09:00 12/10/18 08:59 11/13/18 09:02 Meghana Murillo MD Nov 13, 2018 12:20
--- NOTE | 2018-11-13 12:26 | Infectious Diseases Prog Note ---
Assessment/Plan Assessment/Plan Assessment: Probable UTI (+dysuria) -u/a wbc tnct, nit neg, leuk +3; ucx p Back pain likely 2ry to acute pancreatitis- ? etiology -lipase ~1k -CXR: : Cardiac megaly and pulmonary venous congestion, similar to prior study on 10/28/2018 Afebrile No leukocytosis REcent R foot blisters/cellulitis, sp Rx -MRI R foot: Very limited exam, as described. No definite evidence of osteomyelitis. However, this is difficult to exclude with confidence given the limitations exam. Dorsal soft tissue edema. No definite focal drainable abscess -10/29 sp bedsie I+D; wound cx neg -10/25 s/p bedsdie I+D; wound cx not sent Recent polymicrobial Gram positive bacteremia- likely colonizers -10/25 BCx Neg (peripheral) -10/22 Bcx 1/4 CONS, 1/4 diphteroids; 10/24 2/4 S, mitis oralis (source? periheral or cental line) -2d Echo:No discrete vegetations seen, however SBE may not be excluded by transthoracic 2-D echo. Consider CLAY if clinically indicated. severe anemia ESRD on HD DM2 b/l eye blindness CHF (recent exacerbation 09/2018) bradycardia 2ry hyperparathyroidism CAD s/p stent AOCD s/p AVG w recent rupture HTN morbid obesity Plan: -Continue empiric Ceftriaxone #3/5 for UTI pending urine culture -10/30 SP IV Vancomycin and Unasyn #7 -10/27 SP Clindamycin #3 -f/u cx -Monitor CBC/CMP, temperatures -GI, Podiatry f/u -wound care Subjective Allergies: Coded Allergies: NO KNOWN ALLERGIES (Unverified Allergy, Unknown, 10/15/15) Subjective afebrile at RA no leukocytosis Objective Vital Signs Last 24 Hour Vital Signs Date Time Temp Pulse Resp B/P (MAP) Pulse Ox O2 Delivery O2 Flow Rate FiO2 11/13/18 11:08 165/72 11/13/18 09:01 167/70 11/13/18 09:01 86 167/70 11/13/18 09:00 Room Air 11/13/18 08:00 97.3 86 21 167/70 (102) 97 11/13/18 07:00 75 24 Room Air 21 11/13/18 04:08 Room Air 21 11/13/18 04:07 57 24 Room Air 21 11/13/18 04:00 69 11/13/18 04:00 98.1 65 12 131/86 (101) 96 11/13/18 00:00 98.1 83 17 146/63 (90) 96 11/13/18 00:00 85 11/12/18 21:00 Room Air 11/12/18 20:00 98.0 78 20 142/77 (98) 97 11/12/18 20:00 79 11/12/18 16:00 70 11/12/18 16:00 97.3 70 22 131/73 (92) 97 Height (Feet): 5 Height (Inches): 9.00 Weight (Pounds): 331 Objective General Appearance: WD/WN, no apparent distress Lines, tubes and drains: peripheral HEENT: normocephalic, atraumatic Neck: non-tender, normal alignment Respiratory/Chest: chest wall non-tender, lungs clear Cardiovascular/Chest: normal peripheral pulses Abdomen: normal bowel sounds, non tender Genitourinary/Rectal: normal genital exam Extremities: normal range of motion Microbiology Date/Time Source Procedure Growth Status 11/11/18 10:35 Urine,Clean Catch Urine Culture - Preliminary Resulted Laboratory Tests Test 11/12/18 12:35 11/13/18 07:31 White Blood Count 9.6 K/UL (4.8-10.8) 8.8 K/UL (4.8-10.8) Red Blood Count 2.70 M/UL (4.20-5.40) L 2.91 M/UL (4.20-5.40) L Hemoglobin 6.6 G/DL (12.0-16.0) *L 7.1 G/DL (12.0-16.0) L Hematocrit 22.8 % (37.0-47.0) L 24.6 % (37.0-47.0) L Mean Corpuscular Volume 85 FL (80-99) 85 FL (80-99) Mean Corpuscular Hemoglobin 24.6 PG (27.0-31.0) L 24.5 PG (27.0-31.0) L Mean Corpuscular Hemoglobin Concent 29.1 G/DL (32.0-36.0) L 29.0 G/DL (32.0-36.0) L Red Cell Distribution Width 20.7 % (11.6-14.8) H 21.1 % (11.6-14.8) H Platelet Count 187 K/UL (150-450) 201 K/UL (150-450) Mean Platelet Volume 5.7 FL (6.5-10.1) L 6.9 FL (6.5-10.1) Neutrophils (%) (Auto) % (45.0-75.0) % (45.0-75.0) Lymphocytes (%) (Auto) % (20.0-45.0) % (20.0-45.0) Monocytes (%) (Auto) % (1.0-10.0) % (1.0-10.0) Eosinophils (%) (Auto) % (0.0-3.0) % (0.0-3.0) Basophils (%) (Auto) % (0.0-2.0) % (0.0-2.0) Differential Total Cells Counted 100 100 Neutrophils % (Manual) 60 % (45-75) 57 % (45-75) Lymphocytes % (Manual) 15 % (20-45) L 17 % (20-45) L Monocytes % (Manual) 9 % (1-10) 11 % (1-10) H Eosinophils % (Manual) 15 % (0-3) H 15 % (0-3) H Basophils % (Manual) 0 % (0-2) 0 % (0-2) Band Neutrophils 1 % (0-8) 0 % (0-8) Platelet Estimate Adequate Adequate Platelet Morphology Normal Normal Polychromasia 1+ 1+ Hypochromasia 4+ 2+ Poikilocytosis 1+ Anisocytosis 3+ 3+ Sodium Level 129 MMOL/L (136-145) L 134 MMOL/L (136-145) L Potassium Level 5.0 MMOL/L (3.5-5.1) 4.5 MMOL/L (3.5-5.1) Chloride Level 92 MMOL/L (98-107) L 96 MMOL/L (98-107) L Carbon Dioxide Level 23 MMOL/L (21-32) 25 MMOL/L (21-32) Anion Gap 14 mmol/L (5-15) 13 mmol/L (5-15) Blood Urea Nitrogen 77 mg/dL (7-18) H 55 mg/dL (7-18) H Creatinine 11.1 MG/DL (0.55-1.30) H 9.0 MG/DL (0.55-1.30) H Estimat Glomerular Filtration Rate 4.2 mL/min (>60) 5.5 mL/min (>60) Glucose Level 162 MG/DL (74-106) H 132 MG/DL (74-106) H Calcium Level 8.5 MG/DL (8.5-10.1) 8.7 MG/DL (8.5-10.1) Phosphorus Level 6.2 MG/DL (2.5-4.9) H Magnesium Level 2.7 MG/DL (1.8-2.4) H Amylase Level 83 U/L (25-115) Lipase 507 U/L (73-393) H Current Medications Medications (Trade) Dose Ordered Sig/Josi Route PRN Reason Start Time Stop Time Status Last Admin Dose Admin Acetaminophen (Tylenol) 650 mg Q4H PRN ORAL Mild Pain/Temp > 100.5 11/06/18 06:15 12/06/18 06:14 Acetaminophen/ Hydrocodone Bitart ([place] 10/325) 1 tab Q4H PRN ORAL For Pain 11/13/18 12:00 11/20/18 11:59 Amlodipine Besylate (Norvasc) 10 mg DAILY ORAL 11/09/18 09:00 12/06/18 08:59 11/13/18 09:01 Atorvastatin Calcium (Lipitor) 10 mg BEDTIME ORAL 11/07/18 21:00 12/06/18 20:59 11/12/18 21:20 Ceftriaxone Sodium 1 gm/ Dextrose 55 ml @ 110 mls/hr DAILY IVPB 11/11/18 13:30 11/18/18 13:29 11/13/18 09:08 Clonidine HCl (Catapres Tab) 0.1 mg Q4H PRN ORAL For High Blood Pressure 11/06/18 06:15 12/06/18 06:14 11/13/18 11:08 Dextrose (Dextrose 50%) STAT PRN IV Hypoglycemia 11/06/18 06:15 12/06/18 06:14 Diphenhydramine HCl (Benadryl) 50 mg Q6H PRN ORAL Itching 11/08/18 18:00 12/08/18 17:59 11/12/18 06:17 Docusate Sodium (Colace) 100 mg THREE TIMES A DAY ORAL 11/07/18 13:00 12/07/18 12:59 11/13/18 09:01 Epoetin Jose De Jesus (Procrit (for ESRD on dialysis)) 20,000 units SUN-SUN-SUN SUBQ 11/11/18 21:00 12/06/18 20:59 11/11/18 21:34 Gabapentin (Neurontin) 300 mg THREE TIMES A DAY ORAL 11/12/18 18:00 12/12/18 17:59 11/13/18 09:01 Heparin Sodium (Porcine) (Heparin 5000 units/ml) 5,000 units EVERY 12 HOURS SUBQ 11/06/18 09:00 12/06/18 08:59 11/13/18 09:07 Insulin Aspart (NovoLOG) BEFORE MEALS AND HS SUBQ 11/06/18 07:30 12/06/18 07:29 11/13/18 11:44 Iron Sucrose 100 mg/Sodium Chloride 55 ml @ 200 mls/hr BEDTIME IV 11/08/18 21:00 11/17/18 21:17 11/12/18 21:23 Lisinopril (Zestril) 10 mg DAILY ORAL 11/09/18 09:00 12/06/18 08:59 11/13/18 09:01 Ondansetron HCl (Zofran) 4 mg Q6H PRN IVP Nausea & Vomiting 11/06/18 06:15 12/06/18 06:14 Pantoprazole (Protonix) 40 mg EVERY 12 HOURS ORAL 11/07/18 21:00 12/07/18 20:59 11/13/18 09:01 Phenazopyridine HCl (Pyridium) 100 mg THREE TIMES A DAY ORAL 11/12/18 13:00 12/12/18 12:59 11/13/18 09:02 Polyethylene Glycol (Miralax) 17 gm HSPRN PRN ORAL Constipation 11/06/18 06:15 12/06/18 06:14 Pyridoxine HCl (Vitamin B6) 50 mg DAILY ORAL 11/09/18 12:00 1/14/19 11:59 11/13/18 09:01 Sevelamer Carbonate (Renvela) 1,600 mg THREE TIMES A DAY ORAL 11/09/18 13:00 12/06/18 08:59 11/13/18 09:01 Thiamine HCl (Vitamin B1) 100 mg DAILY ORAL 11/09/18 12:00 12/09/18 11:59 11/13/18 09:02 Vitamin B Complex/ Vit C/Folic Acid (Nephrovite) 1 tab DAILY ORAL 11/10/18 09:00 12/10/18 08:59 11/13/18 09:02 Susi Vanegas M.D. Nov 13, 2018 12:26
--- NOTE | 2018-11-13 13:29 | Cardiac Electrophysiology PN ---
Assessment/Plan Assessment/Plan 1. Hypertension. On Norvasc 10 mg daily, lisinopril 10 mg daily and HD 2. Bradycardia. Resolved off Coreg 3. Recurrent nonsustained ventricular tachycardia. No Syncope or sustained VT Nuclear stress test at [facility] on 10/25/2018 , no evidence of ischemia. 4. Hyperlipidemia. 5. History of positive blood cultures and right toe blisters, status post surgery by podiatry 6. Diabetes. 7. Congestive heart failure with diastolic dysfunction with an ejection fraction 55%. 8. ESRD on HD 9. Abdominal pain. FU GI 10. Dysuria, UTI. On Abx DW RN Subjective Subjective Remained in SR .No bradycardia or VT. Had HD yesterday Objective Last 24 Hour Vital Signs Date Time Temp Pulse Resp B/P (MAP) Pulse Ox O2 Delivery O2 Flow Rate FiO2 11/13/18 11:08 165/72 11/13/18 09:01 167/70 11/13/18 09:01 86 167/70 11/13/18 09:00 Room Air 11/13/18 08:00 97.3 86 21 167/70 (102) 97 11/13/18 08:00 83 11/13/18 07:00 75 24 Room Air 21 11/13/18 04:08 Room Air 21 11/13/18 04:07 57 24 Room Air 21 11/13/18 04:00 69 11/13/18 04:00 98.1 65 12 131/86 (101) 96 11/13/18 00:00 98.1 83 17 146/63 (90) 96 11/13/18 00:00 85 11/12/18 21:00 Room Air 11/12/18 20:00 98.0 78 20 142/77 (98) 97 11/12/18 20:00 79 11/12/18 16:00 70 11/12/18 16:00 97.3 70 22 131/73 (92) 97 Intake and Output 11/12/18 11/13/18 19:00 07:00 Intake Total 460 ml 200 ml Balance 460 ml 200 ml Intake Oral 460 ml 200 ml # Bowel Movements 1 Laboratory Tests Test 11/13/18 07:31 White Blood Count 8.8 K/UL (4.8-10.8) Red Blood Count 2.91 M/UL (4.20-5.40) L Hemoglobin 7.1 G/DL (12.0-16.0) L Hematocrit 24.6 % (37.0-47.0) L Mean Corpuscular Volume 85 FL (80-99) Mean Corpuscular Hemoglobin 24.5 PG (27.0-31.0) L Mean Corpuscular Hemoglobin Concent 29.0 G/DL (32.0-36.0) L Red Cell Distribution Width 21.1 % (11.6-14.8) H Platelet Count 201 K/UL (150-450) Mean Platelet Volume 6.9 FL (6.5-10.1) Neutrophils (%) (Auto) % (45.0-75.0) Lymphocytes (%) (Auto) % (20.0-45.0) Monocytes (%) (Auto) % (1.0-10.0) Eosinophils (%) (Auto) % (0.0-3.0) Basophils (%) (Auto) % (0.0-2.0) Differential Total Cells Counted 100 Neutrophils % (Manual) 57 % (45-75) Lymphocytes % (Manual) 17 % (20-45) L Monocytes % (Manual) 11 % (1-10) H Eosinophils % (Manual) 15 % (0-3) H Basophils % (Manual) 0 % (0-2) Band Neutrophils 0 % (0-8) Platelet Estimate Adequate Platelet Morphology Normal Polychromasia 1+ Hypochromasia 2+ Anisocytosis 3+ Sodium Level 134 MMOL/L (136-145) L Potassium Level 4.5 MMOL/L (3.5-5.1) Chloride Level 96 MMOL/L (98-107) L Carbon Dioxide Level 25 MMOL/L (21-32) Anion Gap 13 mmol/L (5-15) Blood Urea Nitrogen 55 mg/dL (7-18) H Creatinine 9.0 MG/DL (0.55-1.30) H Estimat Glomerular Filtration Rate 5.5 mL/min (>60) Glucose Level 132 MG/DL (74-106) H Calcium Level 8.7 MG/DL (8.5-10.1) Amylase Level 83 U/L (25-115) Lipase 507 U/L (73-393) H Microbiology Date/Time Source Procedure Growth Status 11/11/18 10:35 Urine,Clean Catch Urine Culture - Preliminary Resulted Objective HEAD AND NECK: No JVD. LUNGS: Coarse rhonchi. CARDIOVASCULAR: Regular S1 and S2 with no gallop or murmur. ABDOMEN: Soft.Obese EXTREMITIES: 1+ pitting edema. Shalom Vinson MD Nov 13, 2018 13:29
--- NOTE | 2018-11-13 14:56 | General Progress Note ---
Assessment/Plan Problem List: (1) Congestive heart failure (CHF) ICD Codes: I50.9 - Heart failure, unspecified SNOMED: 77064451 (2) Open wound of right great toe ICD Codes: S91.101A - Unspecified open wound of right great toe without damage to nail, initial encounter SNOMED: 178337914 (3) Back pain ICD Codes: M54.9 - Dorsalgia, unspecified SNOMED: 399835009 (4) General weakness ICD Codes: R53.1 - Weakness SNOMED: 86379973 (5) ESRD (end stage renal disease) on dialysis ICD Codes: N18.6 - End stage renal disease; Z99.2 - Dependence on renal dialysis SNOMED: 079778920 (6) Diabetes mellitus type 2 with neurological manifestations ICD Codes: E11.49 - Type 2 diabetes mellitus with other diabetic neurological complication SNOMED: 50153931, 210038951 (7) Anemia ICD Codes: D64.9 - Anemia, unspecified SNOMED: 123510216 (8) Intractable back pain ICD Codes: M54.9 - Dorsalgia, unspecified SNOMED: 130077937 (9) Pancreatitis ICD Codes: K85.90 - Acute pancreatitis without necrosis or infection, unspecified SNOMED: 58300638 (10) Hypertension ICD Codes: I10 - Essential (primary) hypertension SNOMED: 82793465 (11) Morbid obesity ICD Codes: E66.01 - Morbid (severe) obesity due to excess calories SNOMED: 047289961, [id number] Status: unchanged Assessment/Plan o2 pulm tx abx wound care dialysis cbc bmp am brotman aru eval Subjective Constitutional: Reports: weakness Respiratory: Reports: shortness of breath Allergies: Coded Allergies: NO KNOWN ALLERGIES (Unverified Allergy, Unknown, 10/15/15) All Systems: reviewed and negative except above Subjective o2nc tired Objective Last 24 Hour Vital Signs Date Time Temp Pulse Resp B/P (MAP) Pulse Ox O2 Delivery O2 Flow Rate FiO2 11/13/18 12:00 97.5 92 21 143/66 (91) 97 11/13/18 12:00 80 11/13/18 11:08 165/72 11/13/18 09:01 167/70 11/13/18 09:01 86 167/70 11/13/18 09:00 Room Air 11/13/18 08:00 97.3 86 21 167/70 (102) 97 11/13/18 08:00 83 11/13/18 07:00 75 24 Room Air 21 11/13/18 04:08 Room Air 21 11/13/18 04:07 57 24 Room Air 21 11/13/18 04:00 69 11/13/18 04:00 98.1 65 12 131/86 (101) 96 11/13/18 00:00 98.1 83 17 146/63 (90) 96 11/13/18 00:00 85 11/12/18 21:00 Room Air 11/12/18 20:00 98.0 78 20 142/77 (98) 97 11/12/18 20:00 79 11/12/18 16:00 70 11/12/18 16:00 97.3 70 22 131/73 (92) 97 Intake and Output 11/12/18 11/13/18 19:00 07:00 Intake Total 460 ml 200 ml Balance 460 ml 200 ml Intake Oral 460 ml 200 ml # Bowel Movements 1 Laboratory Tests 11/13/18 07:31: White Blood Count 8.8, Red Blood Count 2.91L, Hemoglobin 7.1L, Hematocrit 24.6L , Mean Corpuscular Volume 85, Mean Corpuscular Hemoglobin 24.5L, Mean Corpuscular Hemoglobin Concent 29.0L, Red Cell Distribution Width 21.1H, Platelet Count 201, Mean Platelet Volume 6.9, Neutrophils (%) (Auto) , Lymphocytes (%) (Auto) , Monocytes (%) (Auto) , Eosinophils (%) (Auto) , Basophils (%) (Auto) , Differential Total Cells Counted 100, Neutrophils % ( Manual) 57, Lymphocytes % (Manual) 17L, Monocytes % (Manual) 11H, Eosinophils % (Manual) 15H, Basophils % (Manual) 0, Band Neutrophils 0, Platelet Estimate Adequate, Platelet Morphology Normal, Polychromasia 1+, Hypochromasia 2+, Anisocytosis 3+, Sodium Level 134L, Potassium Level 4.5, Chloride Level 96L, Carbon Dioxide Level 25, Anion Gap 13, Blood Urea Nitrogen 55H, Creatinine 9.0H , Estimat Glomerular Filtration Rate 5.5, Glucose Level 132H, Calcium Level 8.7 , Amylase Level 83, Lipase 507H Height (Feet): 5 Height (Inches): 9.00 Weight (Pounds): 331 General Appearance: lethargic EENT: normal ENT inspection Neck: normal alignment Cardiovascular: normal peripheral pulses, normal rate, regular rhythm Respiratory/Chest: chest wall non-tender, decreased breath sounds Abdomen: normal bowel sounds, non tender, soft Extremities: normal inspection Edema: 1+ Arm (L), 1+ Arm (R), 1+ Leg (L), 1+ Leg (R), 1+ Pedal (L), 1+ Pedal ( R), 1+ Generalized Edema: trace edema Neurologic: responsive, motor weakness Skin: normal pigmentation, warm/dry Roderick Henning DO Nov 13, 2018 14:56
--- NOTE | 2018-11-13 15:11 | Nephrology Progress Note ---
Assessment/Plan Problem List: (1) ESRD (end stage renal disease) on dialysis (2) Morbid obesity (3) Anemia Assessment: of CKD (4) Coronary artery disease (5) Patient is [employer] Assessment ESRD on HD PermCath placement. left Anemia of CKD DM2 b/l eye blindness CHF (recent exacerbation 09/2018) bradycardia 2ry hyperparathyroidism CAD s/p stent AOCD s/p AVG w recent rupture HTN morbid obesity Right lateral midfoot wound: Wound base is granular, superficial only dermal exposed. No acute SOI. No active purulent drainage. Allegra-wound margins are WNL. Right plantar hallux: Wound base is granular, superficial only dermal exposed. No acute SOI. No active purulent drainage. Allegra-wound margins are WNL. Plan Dialysis 11/09/18 next 11/12 Iron panel noted Venofer and EPO, thiamin and b6 diet to renal , medium CHO DC planning Subjective ROS Limited/Unobtainable: No Constitutional: Reports: malaise, weakness Objective Objective Last 24 Hour Vital Signs Date Time Temp Pulse Resp B/P (MAP) Pulse Ox O2 Delivery O2 Flow Rate FiO2 11/13/18 12:00 97.5 92 21 143/66 (91) 97 11/13/18 12:00 80 11/13/18 11:08 165/72 11/13/18 09:01 167/70 11/13/18 09:01 86 167/70 11/13/18 09:00 Room Air 11/13/18 08:00 97.3 86 21 167/70 (102) 97 11/13/18 08:00 83 11/13/18 07:00 75 24 Room Air 21 11/13/18 04:08 Room Air 21 11/13/18 04:07 57 24 Room Air 21 11/13/18 04:00 69 11/13/18 04:00 98.1 65 12 131/86 (101) 96 11/13/18 00:00 98.1 83 17 146/63 (90) 96 11/13/18 00:00 85 11/12/18 21:00 Room Air 11/12/18 20:00 98.0 78 20 142/77 (98) 97 11/12/18 20:00 79 11/12/18 16:00 70 11/12/18 16:00 97.3 70 22 131/73 (92) 97 Intake and Output 11/12/18 11/13/18 19:00 07:00 Intake Total 460 ml 200 ml Balance 460 ml 200 ml Intake Oral 460 ml 200 ml # Bowel Movements 1 Laboratory Tests 11/13/18 07:31: White Blood Count 8.8, Red Blood Count 2.91L, Hemoglobin 7.1L, Hematocrit 24.6L , Mean Corpuscular Volume 85, Mean Corpuscular Hemoglobin 24.5L, Mean Corpuscular Hemoglobin Concent 29.0L, Red Cell Distribution Width 21.1H, Platelet Count 201, Mean Platelet Volume 6.9, Neutrophils (%) (Auto) , Lymphocytes (%) (Auto) , Monocytes (%) (Auto) , Eosinophils (%) (Auto) , Basophils (%) (Auto) , Differential Total Cells Counted 100, Neutrophils % ( Manual) 57, Lymphocytes % (Manual) 17L, Monocytes % (Manual) 11H, Eosinophils % (Manual) 15H, Basophils % (Manual) 0, Band Neutrophils 0, Platelet Estimate Adequate, Platelet Morphology Normal, Polychromasia 1+, Hypochromasia 2+, Anisocytosis 3+, Sodium Level 134L, Potassium Level 4.5, Chloride Level 96L, Carbon Dioxide Level 25, Anion Gap 13, Blood Urea Nitrogen 55H, Creatinine 9.0H , Estimat Glomerular Filtration Rate 5.5, Glucose Level 132H, Calcium Level 8.7 , Amylase Level 83, Lipase 507H Height (Feet): 5 Height (Inches): 9.00 Weight (Pounds): 331 General Appearance: no apparent distress Respiratory/Chest: decreased breath sounds Abdomen: soft, other - obesed Objective no change Bryan Hunter MD Nov 13, 2018 15:11
[2018-11-13 16:00] VITALS: BP 143/69
[2018-11-13] MEDS ORDERED: Miralax 17gm pkt ORAL PRN (19:24)
[2018-11-13 20:00] VITALS: BP 160/77
--- NOTE | 2018-11-13 20:15 | Progress Note ---
DATE: 11/13/2018 SUBJECTIVE: This is a 63-year-old female patient with back pain and history of pancreatitis. She has altered mental status and mood lability, worsened by the stress of her medical illness. That is why, a daily psychiatric consultation is requested. MENTAL STATUS EXAMINATION: This is a 63-year-old female. Appearance is disheveled. Attitude, irritable and agitated. Affect, guarded and restricted. Intellect poor. Mood, depressed and anxious. Motor activity, psychomotor agitation. Attention span is poor. Orientation x2. Speech is pressured. Thought process, disorganized and logical. Thought content, auditory hallucinations and paranoid delusions. Insight and judgment is poor. DIAGNOSIS: Major depression with psychotic features, rule out dementia with psychosis. PLAN: Continue treatment with psychotropic medications to stabilize her mood. Provided 20 minutes of cognitive behavioral therapy to help her identify automatic negative thoughts and help her to convert those negative thoughts to more positive thinking to reduce depression, anxiety, and help her have a more adaptive behavior pattern. A 20 minutes of cognitive behavioral therapy. Chart reviewed and discussed with staff, seen and assessed at bedside. Iker Lawrence M.D. DR: RADHA JOB#: [id number] CC:
[2018-11-13] MEDS: HYDROcodone/Acetamin 10/325 tab ORAL PRN (20:17)
[2018-11-13] MEDS: Epogen (for ESRD on dialysis) SUBQ SCH (21:00)
[2018-11-14] VITALS (7 sets, daily range): BP systolic 114–150; BP diastolic 57–93
[2018-11-14] MEDS: HYDROcodone/Acetamin 10/325 tab ORAL PRN ×5 (01:53→23:40)
--- NOTE | 2018-11-14 06:00 | Consultation ---
DATE OF CONSULTATION: 11/13/2018 PSYCHOTHERAPY CONSULTATION PROGRESS NOTE CONSULTING PHYSICIAN: Robert Modi PsyD. TREATING ATTENDING PHYSICIAN: Roderick Henning D.O. HISTORY OF PRESENT ILLNESS: The patient is a 63-year-old female patient. The patient was presented to the hospital edema, pancreatitis. She has more abdominal pain, was feeling lethargic and went to the emergency room of [facility]. The patient states that she has been feeling depressed and anxious because of her pain and she states that she has been feeling limited in her movement to facility. However, she has continued to be very anxious and she has been and discharged. The patient was also feeling depressed and continued to be very helpless. She . She denies any suicidal or homicidal thoughts of ideation. She denies any auditory or visual hallucinations. The patient is anxiety, depression, and slight confusion. The patient with positive significant pain . PAST MEDICAL HISTORY: Include history of ESRD, congestive heart failure, , diabetes, hypertension. ALLERGIES: The patient has no known drug allergies. SUBSTANCE ABUSE HISTORY: The patient denies history of alcohol use . PSYCHIATRIC HISTORY: The patient has history of depression and anxiety. SOCIAL HISTORY: The patient is a 63-year-old female patient. She is independent, financial . MENTAL STATUS EXAMINATION: The patient is alert and oriented to person and place. Her mood is depressed and anxious. Affect is labile. Thought process, disorganized. Thought content, confused with poor attention and concentration. Poor insight, judgment, and impulse control. DIAGNOSES: AXIS I Major depressive disorder, recurrent, moderate without psychotic features. Anxiety disorder. . The patient was confused and . PLAN: This clinician assessed this patient and assessed the patient's mental status. Provide the patient with reality orientation and supportive psychotherapy helplessness, hopelessness, depression , labile mood. Tried the patient with redirections, positive coping skills. Encouraging the patient to participate in treatment milieu. Encouraging the patient to . This clinician has reviewed the patient's chart and discussed the treatment with treatment team. . Robert Modi PsyD. DR: FRED JOB#: [id number] CC:
[2018-11-14] MEDS: NovoLOG Insulin Flexpen SUBQ SCH ×4 (06:33→22:06)
[2018-11-14 06:49] LABS: HEMATOCRIT 23.5 % (37.0-47.0); MEAN CORPUSCULAR VOLUME 85 FL (80-99); PLATELET COUNT 186 K/UL (150-450); RED BLOOD COUNT 2.77 M/UL (4.20-5.40); WHITE BLOOD COUNT 9.4 K/UL (4.8-10.8)
[2018-11-14 07:01] LABS: HEMOGLOBIN 6.7 G/DL (12.0-16.0)
[2018-11-14 07:03] LABS: ANION GAP 11 mmol/L (5-15); BLOOD UREA NITROGEN 61 mg/dL (7-18); CALCIUM 8.5 MG/DL (8.5-10.1); CARBON DIOXIDE 26 MMOL/L (21-32); CHLORIDE 95 MMOL/L (98-107); CREATININE 10.6 MG/DL (0.55-1.30); POTASSIUM 4.8 MMOL/L (3.5-5.1); SODIUM 132 MMOL/L (136-145)
[2018-11-14] MEDS: Heparin 5000 units/ml inj SUBQ SCH ×2 (09:00→21:00)
[2018-11-14] MEDS: Nephrovite tab (Rena-Vite) ORAL SCH (09:28)
[2018-11-14] MEDS: Docusate 100mg cap ORAL SCH ×3 (09:28→19:07)
[2018-11-14] MEDS: Pyridoxine 50mg tab ORAL SCH (09:30)
[2018-11-14] MEDS: Thiamine 100mg tab ORAL SCH (09:36)
[2018-11-14] MEDS: cefTRIAXone 1 GM in D5W 55 ML IVPB SCH (09:39)
--- NOTE | 2018-11-14 11:12 | Infectious Diseases Prog Note ---
Assessment/Plan Assessment/Plan Assessment: Probable UTI (+dysuria) -u/a wbc tnct, nit neg, leuk +3; ucx 10-20 yeast so far Back pain likely 2ry to acute pancreatitis- ? etiology -lipase ~1k -CXR: : Cardiac megaly and pulmonary venous congestion, similar to prior study on 10/28/2018 Afebrile No leukocytosis REcent R foot blisters/cellulitis, sp Rx -MRI R foot: Very limited exam, as described. No definite evidence of osteomyelitis. However, this is difficult to exclude with confidence given the limitations exam. Dorsal soft tissue edema. No definite focal drainable abscess -10/29 sp bedsie I+D; wound cx neg -10/25 s/p bedsdie I+D; wound cx not sent Recent polymicrobial Gram positive bacteremia- likely colonizers -10/25 BCx Neg (peripheral) -10/22 Bcx 1/ CONS, 1/ diphteroids; 10/24 2/4 S, mitis oralis (source? periheral or cental line) -2d Echo:No discrete vegetations seen, however SBE may not be excluded by transthoracic 2-D echo. Consider CLAY if clinically indicated. severe anemia ESRD on HD DM2 b/l eye blindness CHF (recent exacerbation 09/2018) bradycardia 2ry hyperparathyroidism CAD s/p stent AOCD s/p AVG w recent rupture HTN morbid obesity Plan: -Continue empiric Ceftriaxone #4/5 for UTI pending urine culture -10/30 SP IV Vancomycin and Unasyn #7 -10/27 SP Clindamycin #3 -f/u cx -Monitor CBC/CMP, temperatures -GI, Podiatry f/u -wound care Subjective Allergies: Coded Allergies: NO KNOWN ALLERGIES (Unverified Allergy, Unknown, 10/15/15) Subjective afebrile at RA no leukocytosis Objective Vital Signs Last 24 Hour Vital Signs Date Time Temp Pulse Resp B/P (MAP) Pulse Ox O2 Delivery O2 Flow Rate FiO2 11/14/18 04:00 97.4 81 20 150/76 (100) 100 11/14/18 00:00 97.8 74 20 140/76 (97) 94 11/13/18 21:00 Room Air 11/13/18 20:00 97.7 82 20 160/77 (104) 96 11/13/18 16:00 72 11/13/18 16:00 97.9 71 19 143/69 (93) 97 11/13/18 12:00 97.5 92 21 143/66 (91) 97 11/13/18 12:00 80 Height (Feet): 5 Height (Inches): 9.00 Weight (Pounds): 331 Objective General Appearance: WD/WN, no apparent distress Lines, tubes and drains: peripheral HEENT: normocephalic, atraumatic Neck: non-tender, normal alignment Respiratory/Chest: chest wall non-tender, lungs clear Cardiovascular/Chest: normal peripheral pulses Abdomen: normal bowel sounds, non tender Genitourinary/Rectal: normal genital exam Extremities: normal range of motion Laboratory Tests Test 11/14/18 05:45 White Blood Count 9.4 K/UL (4.8-10.8) Red Blood Count 2.77 M/UL (4.20-5.40) L Hemoglobin 6.7 G/DL (12.0-16.0) *L Hematocrit 23.5 % (37.0-47.0) L Mean Corpuscular Volume 85 FL (80-99) Mean Corpuscular Hemoglobin 24.3 PG (27.0-31.0) L Mean Corpuscular Hemoglobin Concent 28.6 G/DL (32.0-36.0) L Red Cell Distribution Width 21.0 % (11.6-14.8) H Platelet Count 186 K/UL (150-450) Mean Platelet Volume 6.2 FL (6.5-10.1) L Neutrophils (%) (Auto) % (45.0-75.0) Lymphocytes (%) (Auto) % (20.0-45.0) Monocytes (%) (Auto) % (1.0-10.0) Eosinophils (%) (Auto) % (0.0-3.0) Basophils (%) (Auto) % (0.0-2.0) Differential Total Cells Counted 100 Neutrophils % (Manual) 56 % (45-75) Lymphocytes % (Manual) 25 % (20-45) Monocytes % (Manual) 6 % (1-10) Eosinophils % (Manual) 13 % (0-3) H Basophils % (Manual) 0 % (0-2) Band Neutrophils 0 % (0-8) Platelet Estimate Adequate Platelet Morphology Normal Polychromasia 2+ Hypochromasia 2+ Anisocytosis 3+ Tear Drop Cells 1+ Sodium Level 132 MMOL/L (136-145) L Potassium Level 4.8 MMOL/L (3.5-5.1) Chloride Level 95 MMOL/L (98-107) L Carbon Dioxide Level 26 MMOL/L (21-32) Anion Gap 11 mmol/L (5-15) Blood Urea Nitrogen 61 mg/dL (7-18) H Creatinine 10.6 MG/DL (0.55-1.30) H Estimat Glomerular Filtration Rate 4.5 mL/min (>60) Glucose Level 206 MG/DL (74-106) H Calcium Level 8.5 MG/DL (8.5-10.1) Lipase 687 U/L (73-393) H Current Medications Medications (Trade) Dose Ordered Sig/Josi Route PRN Reason Start Time Stop Time Status Last Admin Dose Admin Acetaminophen (Tylenol) 650 mg Q4H PRN ORAL Mild Pain/Temp > 100.5 11/13/18 19:20 12/06/18 19:19 Acetaminophen/ Hydrocodone Bitart ([place] 10/325) 1 tab Q4H PRN ORAL For Pain 11/13/18 19:24 11/20/18 19:23 11/14/18 06:34 Amlodipine Besylate (Norvasc) 10 mg DAILY ORAL 11/14/18 09:00 12/06/18 08:59 Atorvastatin Calcium (Lipitor) 10 mg BEDTIME ORAL 11/13/18 21:00 12/06/18 20:59 11/13/18 21:40 Ceftriaxone Sodium 1 gm/ Dextrose 55 ml @ 110 mls/hr DAILY IVPB 11/14/18 09:00 11/18/18 13:29 11/14/18 09:39 Clonidine HCl (Catapres Tab) 0.1 mg Q4H PRN ORAL For High Blood Pressure 11/13/18 19:26 12/06/18 19:25 Dextrose (Dextrose 50%) 25 ml Q30M PRN IV Hypoglycemia 11/13/18 19:23 12/13/18 19:22 Dextrose (Dextrose 50%) 50 ml Q30M PRN IV Hypoglycemia 11/13/18 19:23 12/13/18 19:22 Diphenhydramine HCl (Benadryl) 50 mg Q6H PRN ORAL Itching 11/13/18 19:21 12/13/18 19:20 11/13/18 21:49 Docusate Sodium (Colace) 100 mg THREE TIMES A DAY ORAL 11/14/18 09:00 12/07/18 12:59 11/14/18 09:28 Epoetin Jose De Jesus (Procrit (for ESRD on dialysis)) 20,000 units SUN-SUN-SUN SUBQ 11/13/18 21:00 12/06/18 20:59 11/13/18 21:00 Gabapentin (Neurontin) 300 mg THREE TIMES A DAY ORAL 11/14/18 09:00 12/12/18 17:59 11/14/18 09:29 Heparin Sodium (Porcine) (Heparin 5000 units/ml) 5,000 units EVERY 12 HOURS SUBQ 11/13/18 21:00 12/06/18 08:59 Insulin Aspart (NovoLOG) BEFORE MEALS AND HS SUBQ 11/13/18 21:00 12/06/18 07:29 11/14/18 06:33 Iron Sucrose 100 mg/Sodium Chloride 55 ml @ 200 mls/hr BEDTIME IV 11/13/18 21:00 11/18/18 21:17 11/13/18 21:00 Lisinopril (Zestril) 10 mg DAILY ORAL 11/14/18 09:00 12/06/18 08:59 Ondansetron HCl (Zofran) 4 mg Q6H PRN IVP Nausea & Vomiting 11/13/18 19:21 12/13/18 19:20 Pantoprazole (Protonix) 40 mg EVERY 12 HOURS ORAL 11/13/18 21:00 12/07/18 20:59 11/14/18 09:29 Phenazopyridine HCl (Pyridium) 100 mg THREE TIMES A DAY ORAL 11/14/18 09:00 12/12/18 12:59 11/14/18 09:29 Polyethylene Glycol (Miralax) 17 gm HSPRN PRN ORAL Constipation 11/13/18 19:24 12/13/18 19:23 Pyridoxine HCl (Vitamin B6) 50 mg DAILY ORAL 11/14/18 09:00 12/09/18 11:59 11/14/18 09:30 Sevelamer Carbonate (Renvela) 1,600 mg THREE TIMES A DAY ORAL 11/14/18 09:00 12/06/18 08:59 11/14/18 09:30 Thiamine HCl (Vitamin B1) 100 mg DAILY ORAL 11/14/18 09:00 12/09/18 11:59 11/14/18 09:36 Vitamin B Complex/ Vit C/Folic Acid (Nephrovite) 1 tab DAILY ORAL 11/14/18 09:00 12/10/18 08:59 11/14/18 09:28 Susi Vanegas M.D. Nov 14, 2018 11:12
--- NOTE | 2018-11-14 12:39 | GI Progress Note ---
Assessment/Plan Problems: (1) Pancreatitis ICD Codes: K85.90 - Acute pancreatitis without necrosis or infection, unspecified SNOMED: 97153241 (2) Anemia ICD Codes: D64.9 - Anemia, unspecified SNOMED: 003673669 (3) End stage renal disease on dialysis ICD Codes: N18.6 - End stage renal failure on dialysis; Z99.2 - Dependence on renal dialysis SNOMED: 141960053 Status: unchanged Status Narrative Discussed with Dr. Garcia Assessment/Plan Hx of recent colonoscopy at [facility] which was unremarkable s/p EGD >> gastritis, no active source of bleeding Elevated lipase >> downtrending, however remains elevated Normal triglyceride levels CTAP ordered, pancreatic protocol >> unable to be performed due to the patient' s weight Patient to be scheduled for endoscopic ultrasound tomorrow -Patient to be n.p.o. at midnight -Hold all blood thinners tonight advance diet as tolerated pain mgmt ppi zofran prn Trend lipase fu labs, SASKIA, IgG1-4 The patient was seen and examined at bedside and all new and available data was reviewed in the patients chart. I agree with the above findings, impression and plan. (Patient seen earlier today. Signature stamp does not reflect patient encounter time.). - Jamison Garcia MD Subjective Subjective Denies any abdominal pain no nausea or vomiting Objective Last 24 Hour Vital Signs Date Time Temp Pulse Resp B/P (MAP) Pulse Ox O2 Delivery O2 Flow Rate FiO2 11/14/18 09:00 Room Air 11/14/18 08:00 11/14/18 08:00 97.3 73 18 114/75 (88) 96 11/14/18 04:00 97.4 81 20 150/76 (100) 100 11/14/18 00:00 97.8 74 20 140/76 (97) 94 11/13/18 21:00 Room Air 11/13/18 20:00 97.7 82 20 160/77 (104) 96 11/13/18 16:00 72 11/13/18 16:00 97.9 71 19 143/69 (93) 97 Intake and Output 11/13/18 11/14/18 19:00 07:00 Intake Total 260 ml 355 ml Output Total 0 ml Balance 260 ml 355 ml Intake Oral 260 ml 300 ml IV Total 55 ml Output Urine Total 0 ml # Voids 1 # Bowel Movements 1 Laboratory Tests Test 11/14/18 05:45 White Blood Count 9.4 K/UL (4.8-10.8) Red Blood Count 2.77 M/UL (4.20-5.40) L Hemoglobin 6.7 G/DL (12.0-16.0) *L Hematocrit 23.5 % (37.0-47.0) L Mean Corpuscular Volume 85 FL (80-99) Mean Corpuscular Hemoglobin 24.3 PG (27.0-31.0) L Mean Corpuscular Hemoglobin Concent 28.6 G/DL (32.0-36.0) L Red Cell Distribution Width 21.0 % (11.6-14.8) H Platelet Count 186 K/UL (150-450) Mean Platelet Volume 6.2 FL (6.5-10.1) L Neutrophils (%) (Auto) % (45.0-75.0) Lymphocytes (%) (Auto) % (20.0-45.0) Monocytes (%) (Auto) % (1.0-10.0) Eosinophils (%) (Auto) % (0.0-3.0) Basophils (%) (Auto) % (0.0-2.0) Differential Total Cells Counted 100 Neutrophils % (Manual) 56 % (45-75) Lymphocytes % (Manual) 25 % (20-45) Monocytes % (Manual) 6 % (1-10) Eosinophils % (Manual) 13 % (0-3) H Basophils % (Manual) 0 % (0-2) Band Neutrophils 0 % (0-8) Platelet Estimate Adequate Platelet Morphology Normal Polychromasia 2+ Hypochromasia 2+ Anisocytosis 3+ Tear Drop Cells 1+ Sodium Level 132 MMOL/L (136-145) L Potassium Level 4.8 MMOL/L (3.5-5.1) Chloride Level 95 MMOL/L (98-107) L Carbon Dioxide Level 26 MMOL/L (21-32) Anion Gap 11 mmol/L (5-15) Blood Urea Nitrogen 61 mg/dL (7-18) H Creatinine 10.6 MG/DL (0.55-1.30) H Estimat Glomerular Filtration Rate 4.5 mL/min (>60) Glucose Level 206 MG/DL (74-106) H Calcium Level 8.5 MG/DL (8.5-10.1) Lipase 687 U/L (73-393) H Height (Feet): 5 Height (Inches): 9.00 Weight (Pounds): 331 General Appearance: WD/WN, no apparent distress, alert, obese Cardiovascular: normal rate Respiratory/Chest: normal breath sounds, no respiratory distress Abdominal Exam: normal bowel sounds, non tender, soft Extremities: normal range of motion, non-tender Jaime Martin NP Nov 14, 2018 12:39
--- NOTE | 2018-11-14 12:45 | Pulmonology Progress Note ---
Assessment/Plan Problems: (1) Intractable back pain (2) Lumbar radiculopathy (3) End stage renal disease on dialysis (4) Coronary artery disease (5) ESRD (end stage renal disease) on dialysis (6) Blindness of both eyes (7) Anemia Assessment/Plan no new complains c/o right foot pain symptomatic treatment pain management HD by nephrology check electrolytes abx as per ID all reviewed Subjective ROS Limited/Unobtainable: No Constitutional: Reports: no symptoms HEENT: Repors: no symptoms Respiratory: Reports: no symptoms Allergies: Coded Allergies: NO KNOWN ALLERGIES (Unverified Allergy, Unknown, 10/15/15) Objective Last 24 Hour Vital Signs Date Time Temp Pulse Resp B/P (MAP) Pulse Ox O2 Delivery O2 Flow Rate FiO2 11/14/18 09:00 Room Air 11/14/18 08:00 11/14/18 08:00 97.3 73 18 114/75 (88) 96 11/14/18 04:00 97.4 81 20 150/76 (100) 100 11/14/18 00:00 97.8 74 20 140/76 (97) 94 11/13/18 21:00 Room Air 11/13/18 20:00 97.7 82 20 160/77 (104) 96 11/13/18 16:00 72 11/13/18 16:00 97.9 71 19 143/69 (93) 97 Intake and Output 11/13/18 11/14/18 19:00 07:00 Intake Total 260 ml 355 ml Output Total 0 ml Balance 260 ml 355 ml Intake Oral 260 ml 300 ml IV Total 55 ml Output Urine Total 0 ml # Voids 1 # Bowel Movements 1 General Appearance: WD/WN HEENT: normocephalic, atraumatic Respiratory/Chest: chest wall non-tender, lungs clear Breasts: no masses Cardiovascular: normal rate, regular rhythm Genitourinary: normal external genitalia Skin: no rash Laboratory Tests 11/14/18 05:45: White Blood Count 9.4, Red Blood Count 2.77L, Hemoglobin 6.7*L, Hematocrit 23.5L , Mean Corpuscular Volume 85, Mean Corpuscular Hemoglobin 24.3L, Mean Corpuscular Hemoglobin Concent 28.6L, Red Cell Distribution Width 21.0H, Platelet Count 186, Mean Platelet Volume 6.2L, Neutrophils (%) (Auto) , Lymphocytes (%) (Auto) , Monocytes (%) (Auto) , Eosinophils (%) (Auto) , Basophils (%) (Auto) , Differential Total Cells Counted 100, Neutrophils % ( Manual) 56, Lymphocytes % (Manual) 25, Monocytes % (Manual) 6, Eosinophils % ( Manual) 13H, Basophils % (Manual) 0, Band Neutrophils 0, Platelet Estimate Adequate, Platelet Morphology Normal, Polychromasia 2+, Hypochromasia 2+, Anisocytosis 3+, Tear Drop Cells 1+, Sodium Level 132L, Potassium Level 4.8, Chloride Level 95L, Carbon Dioxide Level 26, Anion Gap 11, Blood Urea Nitrogen 61H, Creatinine 10.6H, Estimat Glomerular Filtration Rate 4.5, Glucose Level 206H, Calcium Level 8.5, Lipase 687H Current Medications Medications (Trade) Dose Ordered Sig/Josi Route PRN Reason Start Time Stop Time Status Last Admin Dose Admin Acetaminophen (Tylenol) 650 mg Q4H PRN ORAL Mild Pain/Temp > 100.5 11/13/18 19:20 12/06/18 19:19 Acetaminophen/ Hydrocodone Bitart ([place] 10/325) 1 tab Q4H PRN ORAL For Pain 11/13/18 19:24 11/20/18 19:23 11/14/18 06:34 Amlodipine Besylate (Norvasc) 10 mg DAILY ORAL 11/14/18 09:00 12/06/18 08:59 Atorvastatin Calcium (Lipitor) 10 mg BEDTIME ORAL 11/13/18 21:00 12/06/18 20:59 11/13/18 21:40 Ceftriaxone Sodium 1 gm/ Dextrose 55 ml @ 110 mls/hr DAILY IVPB 11/14/18 09:00 11/18/18 13:29 11/14/18 09:39 Clonidine HCl (Catapres Tab) 0.1 mg Q4H PRN ORAL For High Blood Pressure 11/13/18 19:26 12/06/18 19:25 Dextrose (Dextrose 50%) 25 ml Q30M PRN IV Hypoglycemia 11/13/18 19:23 12/13/18 19:22 Dextrose (Dextrose 50%) 50 ml Q30M PRN IV Hypoglycemia 11/13/18 19:23 12/13/18 19:22 Diphenhydramine HCl (Benadryl) 50 mg Q6H PRN ORAL Itching 11/13/18 19:21 12/13/18 19:20 11/13/18 21:49 Docusate Sodium (Colace) 100 mg THREE TIMES A DAY ORAL 11/14/18 09:00 12/07/18 12:59 11/14/18 09:28 Epoetin Jose De Jesus (Procrit (for ESRD on dialysis)) 20,000 units SUN-SUN-SUN SUBQ 11/13/18 21:00 12/06/18 20:59 11/13/18 21:00 Gabapentin (Neurontin) 300 mg THREE TIMES A DAY ORAL 11/14/18 09:00 12/12/18 17:59 11/14/18 09:29 Heparin Sodium (Porcine) (Heparin 5000 units/ml) 5,000 units EVERY 12 HOURS SUBQ 11/13/18 21:00 12/06/18 08:59 Insulin Aspart (NovoLOG) BEFORE MEALS AND HS SUBQ 11/13/18 21:00 12/06/18 07:29 11/14/18 12:35 Iron Sucrose 100 mg/Sodium Chloride 55 ml @ 200 mls/hr BEDTIME IV 11/13/18 21:00 11/18/18 21:17 11/13/18 21:00 Lisinopril (Zestril) 10 mg DAILY ORAL 11/14/18 09:00 12/06/18 08:59 Ondansetron HCl (Zofran) 4 mg Q6H PRN IVP Nausea & Vomiting 11/13/18 19:21 12/13/18 19:20 Pantoprazole (Protonix) 40 mg EVERY 12 HOURS ORAL 11/13/18 21:00 12/07/18 20:59 11/14/18 09:29 Phenazopyridine HCl (Pyridium) 100 mg THREE TIMES A DAY ORAL 11/14/18 09:00 12/12/18 12:59 11/14/18 09:29 Polyethylene Glycol (Miralax) 17 gm HSPRN PRN ORAL Constipation 11/13/18 19:24 12/13/18 19:23 Pyridoxine HCl (Vitamin B6) 50 mg DAILY ORAL 11/14/18 09:00 12/09/18 11:59 11/14/18 09:30 Sevelamer Carbonate (Renvela) 1,600 mg THREE TIMES A DAY ORAL 11/14/18 09:00 12/06/18 08:59 11/14/18 09:30 Thiamine HCl (Vitamin B1) 100 mg DAILY ORAL 11/14/18 09:00 12/09/18 11:59 11/14/18 09:36 Vitamin B Complex/ Vit C/Folic Acid (Nephrovite) 1 tab DAILY ORAL 11/14/18 09:00 12/10/18 08:59 11/14/18 09:28 Meghana Murillo MD Nov 14, 2018 12:45
[2018-11-14] MEDS: Lisinopril 10mg tab ORAL SCH (14:06)
--- NOTE | 2018-11-14 14:28 | General Progress Note ---
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 ICD Codes: E11.49 - Type 2 diabetes mellitus with other diabetic neurological complication SNOMED: 20695936, 541415012 (7) Anemia ICD Codes: D64.9 - Anemia, unspecified SNOMED: 952156700 (8) Intractable back pain ICD Codes: M54.9 - Dorsalgia, unspecified SNOMED: 602564512 (9) Pancreatitis ICD Codes: K85.90 - Acute pancreatitis without necrosis or infection, unspecified SNOMED: 88210403 (10) Hypertension ICD Codes: I10 - Essential (primary) hypertension SNOMED: 19948465 (11) Morbid obesity ICD Codes: E66.01 - Morbid (severe) obesity due to excess calories SNOMED: 599310968, 42607931747760 Status: stable, progressing Assessment/Plan o2 pulm tx abx wound care dialysis cbc bmp am dc w hh if clear Subjective Constitutional: Reports: weakness Allergies: Coded Allergies: NO KNOWN ALLERGIES (Unverified Allergy, Unknown, 10/15/15) All Systems: reviewed and negative except above Subjective o2nc feeling better Objective Last 24 Hour Vital Signs Date Time Temp Pulse Resp B/P (MAP) Pulse Ox O2 Delivery O2 Flow Rate FiO2 11/14/18 14:13 77 143/84 11/14/18 14:06 143/84 11/14/18 14:02 77 143/84 (103) 11/14/18 09:00 Room Air 11/14/18 08:00 11/14/18 08:00 97.3 73 18 114/75 (88) 96 11/14/18 04:00 97.4 81 20 150/76 (100) 100 11/14/18 00:00 97.8 74 20 140/76 (97) 94 11/13/18 21:00 Room Air 11/13/18 20:00 97.7 82 20 160/77 (104) 96 11/13/18 16:00 72 11/13/18 16:00 97.9 71 19 143/69 (93) 97 Intake and Output 11/13/18 11/14/18 19:00 07:00 Intake Total 260 ml 355 ml Output Total 0 ml Balance 260 ml 355 ml Intake Oral 260 ml 300 ml IV Total 55 ml Output Urine Total 0 ml # Voids 1 # Bowel Movements 1 Laboratory Tests 11/14/18 05:45: White Blood Count 9.4, Red Blood Count 2.77L, Hemoglobin 6.7*L, Hematocrit 23.5L , Mean Corpuscular Volume 85, Mean Corpuscular Hemoglobin 24.3L, Mean Corpuscular Hemoglobin Concent 28.6L, Red Cell Distribution Width 21.0H, Platelet Count 186, Mean Platelet Volume 6.2L, Neutrophils (%) (Auto) , Lymphocytes (%) (Auto) , Monocytes (%) (Auto) , Eosinophils (%) (Auto) , Basophils (%) (Auto) , Differential Total Cells Counted 100, Neutrophils % ( Manual) 56, Lymphocytes % (Manual) 25, Monocytes % (Manual) 6, Eosinophils % ( Manual) 13H, Basophils % (Manual) 0, Band Neutrophils 0, Platelet Estimate Adequate, Platelet Morphology Normal, Polychromasia 2+, Hypochromasia 2+, Anisocytosis 3+, Tear Drop Cells 1+, Sodium Level 132L, Potassium Level 4.8, Chloride Level 95L, Carbon Dioxide Level 26, Anion Gap 11, Blood Urea Nitrogen 61H, Creatinine 10.6H, Estimat Glomerular Filtration Rate 4.5, Glucose Level 206H, Calcium Level 8.5, Lipase 687H Height (Feet): 5 Height (Inches): 9.00 Weight (Pounds): 331 General Appearance: lethargic EENT: normal ENT inspection Neck: normal alignment Cardiovascular: normal peripheral pulses, normal rate, regular rhythm Respiratory/Chest: chest wall non-tender, lungs clear, normal breath sounds Abdomen: normal bowel sounds, non tender, soft Extremities: normal inspection Edema: 1+ Arm (L), 1+ Arm (R), 1+ Leg (L), 1+ Leg (R), 1+ Pedal (L), 1+ Pedal ( R), 1+ Generalized Edema: trace edema Neurologic: responsive, motor weakness Skin: normal pigmentation, warm/dry Roderick Henning DO Nov 14, 2018 14:28
--- NOTE | 2018-11-14 15:30 | Nephrology Progress Note ---
Assessment/Plan Problem List: (1) ESRD (end stage renal disease) on dialysis (2) Morbid obesity (3) Anemia Assessment: of CKD (4) Coronary artery disease (5) Patient is Rastafarian Assessment ESRD on HD PermCath placement. left Anemia of CKD DM2 b/l eye blindness CHF (recent exacerbation 09/2018) bradycardia 2ry hyperparathyroidism CAD s/p stent AOCD s/p AVG w recent rupture HTN morbid obesity Right lateral midfoot wound: Wound base is granular, superficial only dermal exposed. No acute SOI. No active purulent drainage. Allegra-wound margins are WNL. Right plantar hallux: Wound base is granular, superficial only dermal exposed. No acute SOI. No active purulent drainage. Allegra-wound margins are WNL. Plan Dialysis next 11/15 Iron panel noted Venofer and EPO, thiamin and b6 diet to renal , medium CHO DC planning Subjective ROS Limited/Unobtainable: No Objective Objective Last 24 Hour Vital Signs Date Time Temp Pulse Resp B/P (MAP) Pulse Ox O2 Delivery O2 Flow Rate FiO2 11/14/18 14:13 77 143/84 11/14/18 14:06 143/84 11/14/18 14:02 77 143/84 (103) 11/14/18 12:00 96.3 64 16 124/93 (103) 97 11/14/18 09:00 Room Air 11/14/18 08:00 11/14/18 08:00 97.3 73 18 114/75 (88) 96 11/14/18 04:00 97.4 81 20 150/76 (100) 100 11/14/18 00:00 97.8 74 20 140/76 (97) 94 11/13/18 21:00 Room Air 11/13/18 20:00 97.7 82 20 160/77 (104) 96 11/13/18 16:00 72 11/13/18 16:00 97.9 71 19 143/69 (93) 97 Intake and Output 11/13/18 11/14/18 19:00 07:00 Intake Total 260 ml 355 ml Output Total 0 ml Balance 260 ml 355 ml Intake Oral 260 ml 300 ml IV Total 55 ml Output Urine Total 0 ml # Voids 1 # Bowel Movements 1 Laboratory Tests 11/14/18 05:45: White Blood Count 9.4, Red Blood Count 2.77L, Hemoglobin 6.7*L, Hematocrit 23.5L , Mean Corpuscular Volume 85, Mean Corpuscular Hemoglobin 24.3L, Mean Corpuscular Hemoglobin Concent 28.6L, Red Cell Distribution Width 21.0H, Platelet Count 186, Mean Platelet Volume 6.2L, Neutrophils (%) (Auto) , Lymphocytes (%) (Auto) , Monocytes (%) (Auto) , Eosinophils (%) (Auto) , Basophils (%) (Auto) , Differential Total Cells Counted 100, Neutrophils % ( Manual) 56, Lymphocytes % (Manual) 25, Monocytes % (Manual) 6, Eosinophils % ( Manual) 13H, Basophils % (Manual) 0, Band Neutrophils 0, Platelet Estimate Adequate, Platelet Morphology Normal, Polychromasia 2+, Hypochromasia 2+, Anisocytosis 3+, Tear Drop Cells 1+, Sodium Level 132L, Potassium Level 4.8, Chloride Level 95L, Carbon Dioxide Level 26, Anion Gap 11, Blood Urea Nitrogen 61H, Creatinine 10.6H, Estimat Glomerular Filtration Rate 4.5, Glucose Level 206H, Calcium Level 8.5, Lipase 687H Height (Feet): 5 Height (Inches): 9.00 Weight (Pounds): 331 General Appearance: no apparent distress Objective no change Bryan Hunter MD Nov 14, 2018 15:30
--- NOTE | 2018-11-14 16:31 | Cardiac Electrophysiology PN ---
Assessment/Plan Assessment/Plan 1. Hypertension. On Norvasc 10 mg daily, lisinopril 10 mg daily and HD 2. Bradycardia. Resolved off Coreg 3. Recurrent nonsustained ventricular tachycardia. No Syncope or sustained VT Nuclear stress test at [facility] on 10/25/2018 , no evidence of ischemia. 4. Hyperlipidemia. 5. History of positive blood cultures and right toe blisters, status post surgery by podiatry 6. Diabetes. 7. Congestive heart failure with diastolic dysfunction with an ejection fraction 55%. 8. ESRD on HD 9. Abdominal pain. FU GI 10. UTI. On Abx DW RN Subjective Subjective Comfortable in NAD off tele. Objective Last 24 Hour Vital Signs Date Time Temp Pulse Resp B/P (MAP) Pulse Ox O2 Delivery O2 Flow Rate FiO2 11/14/18 14:13 77 143/84 11/14/18 14:06 143/84 11/14/18 14:02 77 143/84 (103) 11/14/18 12:00 96.3 64 16 124/93 (103) 97 11/14/18 09:00 Room Air 11/14/18 08:00 11/14/18 08:00 97.3 73 18 114/75 (88) 96 11/14/18 04:00 97.4 81 20 150/76 (100) 100 11/14/18 00:00 97.8 74 20 140/76 (97) 94 11/13/18 21:00 Room Air 11/13/18 20:00 97.7 82 20 160/77 (104) 96 Intake and Output 11/13/18 11/14/18 19:00 07:00 Intake Total 260 ml 355 ml Output Total 0 ml Balance 260 ml 355 ml Intake Oral 260 ml 300 ml IV Total 55 ml Output Urine Total 0 ml # Voids 1 # Bowel Movements 1 Laboratory Tests Test 11/14/18 05:45 White Blood Count 9.4 K/UL (4.8-10.8) Red Blood Count 2.77 M/UL (4.20-5.40) L Hemoglobin 6.7 G/DL (12.0-16.0) *L Hematocrit 23.5 % (37.0-47.0) L Mean Corpuscular Volume 85 FL (80-99) Mean Corpuscular Hemoglobin 24.3 PG (27.0-31.0) L Mean Corpuscular Hemoglobin Concent 28.6 G/DL (32.0-36.0) L Red Cell Distribution Width 21.0 % (11.6-14.8) H Platelet Count 186 K/UL (150-450) Mean Platelet Volume 6.2 FL (6.5-10.1) L Neutrophils (%) (Auto) % (45.0-75.0) Lymphocytes (%) (Auto) % (20.0-45.0) Monocytes (%) (Auto) % (1.0-10.0) Eosinophils (%) (Auto) % (0.0-3.0) Basophils (%) (Auto) % (0.0-2.0) Differential Total Cells Counted 100 Neutrophils % (Manual) 56 % (45-75) Lymphocytes % (Manual) 25 % (20-45) Monocytes % (Manual) 6 % (1-10) Eosinophils % (Manual) 13 % (0-3) H Basophils % (Manual) 0 % (0-2) Band Neutrophils 0 % (0-8) Platelet Estimate Adequate Platelet Morphology Normal Polychromasia 2+ Hypochromasia 2+ Anisocytosis 3+ Tear Drop Cells 1+ Sodium Level 132 MMOL/L (136-145) L Potassium Level 4.8 MMOL/L (3.5-5.1) Chloride Level 95 MMOL/L (98-107) L Carbon Dioxide Level 26 MMOL/L (21-32) Anion Gap 11 mmol/L (5-15) Blood Urea Nitrogen 61 mg/dL (7-18) H Creatinine 10.6 MG/DL (0.55-1.30) H Estimat Glomerular Filtration Rate 4.5 mL/min (>60) Glucose Level 206 MG/DL (74-106) H Calcium Level 8.5 MG/DL (8.5-10.1) Lipase 687 U/L (73-393) H Objective HEAD AND NECK: No JVD. LUNGS: Coarse rhonchi. CARDIOVASCULAR: Regular S1 and S2 with no gallop or murmur. ABDOMEN: Soft.Obese EXTREMITIES: 1+ pitting edema. Shalom Vinson MD Nov 14, 2018 16:31
[2018-11-15] VITALS: BP 162/53
[2018-11-15 04:00] VITALS: BP 43/72
[2018-11-15] MEDS: NovoLOG Insulin Flexpen SUBQ SCH ×4 (06:03→21:17)
[2018-11-15] MEDS: HYDROcodone/Acetamin 10/325 tab ORAL PRN ×2 (06:06→17:34)
[2018-11-15 06:53] LABS: ANION GAP 12 mmol/L (5-15); BLOOD UREA NITROGEN 67 mg/dL (7-18); CALCIUM 8.5 MG/DL (8.5-10.1); CARBON DIOXIDE 24 MMOL/L (21-32); CHLORIDE 95 MMOL/L (98-107); CREATININE 11.4 MG/DL (0.55-1.30); POTASSIUM 4.9 MMOL/L (3.5-5.1); SODIUM 131 MMOL/L (136-145)
[2018-11-15 07:06] LABS: INR 1.1 (0.9-1.1)
[2018-11-15 07:14] LABS: HEMATOCRIT 23.5 % (37.0-47.0); MEAN CORPUSCULAR VOLUME 84 FL (80-99); PLATELET COUNT 195 K/UL (150-450); RED BLOOD COUNT 2.79 M/UL (4.20-5.40); WHITE BLOOD COUNT 10.2 K/UL (4.8-10.8)
[2018-11-15 07:37] LABS: HEMOGLOBIN 6.7 G/DL (12.0-16.0)
[2018-11-15 08:00] VITALS: BP 141/95
[2018-11-15] MEDS: Docusate 100mg cap ORAL SCH ×3 (08:27→18:02)
[2018-11-15] MEDS: Lisinopril 10mg tab ORAL SCH (08:29)
[2018-11-15] MEDS: Heparin 5000 units/ml inj SUBQ SCH ×2 (08:29→20:43)
[2018-11-15] MEDS ORDERED: Heparin Sod 1000 units/ml 10ml INJ PRN (08:45)
--- NOTE | 2018-11-15 09:36 | Cardiac Electrophysiology PN ---
Assessment/Plan Assessment/Plan 1. Hypertension. On Norvasc 10 mg daily, lisinopril 10 mg daily and HD 2. Bradycardia. Resolved off Coreg 3. Recurrent nonsustained ventricular tachycardia. No Syncope or sustained VT Nuclear stress test at [facility] on 10/25/2018 , no evidence of ischemia. 4. Hyperlipidemia. 5. History of positive blood cultures and right toe blisters, status post surgery by podiatry 6. Diabetes. 7. Congestive heart failure with diastolic dysfunction with an ejection fraction 55%. 8. ESRD on HD 9. Abdominal pain. FU GI 10. UTI. On Abx 11. Severe anemia, refusing transfusion. Is Jahovah Witness DW RN Subjective Subjective Comfortable in NAD, getting HD. Refusing blood transfusion despite Hb around 6 Objective Last 24 Hour Vital Signs Date Time Temp Pulse Resp B/P (MAP) Pulse Ox O2 Delivery O2 Flow Rate FiO2 11/15/18 04:00 97.6 80 20 43/72 (62) 97 11/15/18 00:00 97.3 76 20 162/53 (89) 94 11/14/18 21:00 Room Air 11/14/18 20:00 97.3 73 20 131/77 (95) 95 11/14/18 16:00 96.5 80 18 140/57 (84) 96 11/14/18 14:13 77 143/84 11/14/18 14:06 143/84 11/14/18 14:02 77 143/84 (103) 11/14/18 12:00 96.3 64 16 124/93 (103) 97 Intake and Output 11/14/18 11/15/18 19:00 07:00 Intake Total 558 ml Output Total 0 ml Balance 558 ml 0 ml Intake Oral 558 ml Output Urine Total 0 ml # Voids 4 Laboratory Tests Test 11/15/18 05:45 White Blood Count 10.2 K/UL (4.8-10.8) Red Blood Count 2.79 M/UL (4.20-5.40) L Hemoglobin 6.7 G/DL (12.0-16.0) *L Hematocrit 23.5 % (37.0-47.0) L Mean Corpuscular Volume 84 FL (80-99) Mean Corpuscular Hemoglobin 24.2 PG (27.0-31.0) L Mean Corpuscular Hemoglobin Concent 28.7 G/DL (32.0-36.0) L Red Cell Distribution Width 20.0 % (11.6-14.8) H Platelet Count 195 K/UL (150-450) Mean Platelet Volume 6.8 FL (6.5-10.1) Neutrophils (%) (Auto) % (45.0-75.0) Lymphocytes (%) (Auto) % (20.0-45.0) Monocytes (%) (Auto) % (1.0-10.0) Eosinophils (%) (Auto) % (0.0-3.0) Basophils (%) (Auto) % (0.0-2.0) Differential Total Cells Counted 100 Neutrophils % (Manual) 56 % (45-75) Lymphocytes % (Manual) 14 % (20-45) L Monocytes % (Manual) 8 % (1-10) Eosinophils % (Manual) 21 % (0-3) H Basophils % (Manual) 1 % (0-2) Band Neutrophils 0 % (0-8) Nucleated Red Blood Cells 1 /100 WBC Platelet Estimate Adequate Platelet Morphology Normal Hypochromasia 4+ Anisocytosis 2+ Prothrombin Time 12.0 SEC (9.30-11.50) H Prothromb Time International Ratio 1.1 (0.9-1.1) Activated Partial Thromboplast Time 39 SEC (23-33) H Sodium Level 131 MMOL/L (136-145) L Potassium Level 4.9 MMOL/L (3.5-5.1) Chloride Level 95 MMOL/L (98-107) L Carbon Dioxide Level 24 MMOL/L (21-32) Anion Gap 12 mmol/L (5-15) Blood Urea Nitrogen 67 mg/dL (7-18) H Creatinine 11.4 MG/DL (0.55-1.30) H Estimat Glomerular Filtration Rate 4.1 mL/min (>60) Glucose Level 165 MG/DL (74-106) H Calcium Level 8.5 MG/DL (8.5-10.1) Lipase 588 U/L (73-393) H Objective HEAD AND NECK: No JVD. LUNGS: Coarse rhonchi. CARDIOVASCULAR: Regular S1 and S2 with no gallop or murmur. ABDOMEN: Soft.Obese EXTREMITIES: 1+ pitting edema. Shalom Vinson MD Nov 15, 2018 09:36
[2018-11-15] MEDS: cefTRIAXone 1 GM in D5W 55 ML IVPB SCH (12:57)
[2018-11-15] MEDS: Thiamine 100mg tab ORAL SCH (12:58)
[2018-11-15] MEDS: Pyridoxine 50mg tab ORAL SCH (12:59)
[2018-11-15] MEDS: Nephrovite tab (Rena-Vite) ORAL SCH (13:00)
--- NOTE | 2018-11-15 13:34 | Nephrology Progress Note ---
Assessment/Plan Problem List: (1) ESRD (end stage renal disease) on dialysis (2) Morbid obesity (3) Anemia Assessment: of CKD (4) Coronary artery disease (5) Patient is Christian Assessment ESRD on HD PermCath placement. left Anemia of CKD DM2 b/l eye blindness CHF (recent exacerbation 09/2018) bradycardia 2ry hyperparathyroidism CAD s/p stent AOCD s/p AVG w recent rupture HTN morbid obesity Right lateral midfoot wound: Wound base is granular, superficial only dermal exposed. No acute SOI. No active purulent drainage. Allegra-wound margins are WNL. Right plantar hallux: Wound base is granular, superficial only dermal exposed. No acute SOI. No active purulent drainage. Allegra-wound margins are WNL. Plan Dialysis next 11/15 Iron panel noted Venofer and EPO, thiamin and b6 diet to renal , medium CHO DC planning Subjective ROS Limited/Unobtainable: No Constitutional: Reports: malaise Objective Objective Last 24 Hour Vital Signs Date Time Temp Pulse Resp B/P (MAP) Pulse Ox O2 Delivery O2 Flow Rate FiO2 11/15/18 11:29 Room Air 11/15/18 09:57 Room Air 11/15/18 09:00 Room Air 11/15/18 08:00 98.4 75 19 141/95 (110) 96 11/15/18 04:00 97.6 80 20 43/72 (62) 97 11/15/18 00:00 97.3 76 20 162/53 (89) 94 11/14/18 21:00 Room Air 11/14/18 20:00 97.3 73 20 131/77 (95) 95 11/14/18 16:00 96.5 80 18 140/57 (84) 96 11/14/18 14:13 77 143/84 11/14/18 14:06 143/84 11/14/18 14:02 77 143/84 (103) Intake and Output 11/14/18 11/15/18 19:00 07:00 Intake Total 558 ml Output Total 0 ml Balance 558 ml 0 ml Intake Oral 558 ml Output Urine Total 0 ml # Voids 4 Laboratory Tests 11/15/18 05:45: White Blood Count 10.2, Red Blood Count 2.79L, Hemoglobin 6.7*L, Hematocrit 23.5L, Mean Corpuscular Volume 84, Mean Corpuscular Hemoglobin 24.2L, Mean Corpuscular Hemoglobin Concent 28.7L, Red Cell Distribution Width 20.0H, Platelet Count 195, Mean Platelet Volume 6.8, Neutrophils (%) (Auto) , Lymphocytes (%) (Auto) , Monocytes (%) (Auto) , Eosinophils (%) (Auto) , Basophils (%) (Auto) , Differential Total Cells Counted 100, Neutrophils % ( Manual) 56, Lymphocytes % (Manual) 14L, Monocytes % (Manual) 8, Eosinophils % ( Manual) 21H, Basophils % (Manual) 1, Band Neutrophils 0, Nucleated Red Blood Cells 1, Platelet Estimate Adequate, Platelet Morphology Normal, Hypochromasia 4 +, Anisocytosis 2+, Prothrombin Time 12.0H, Prothromb Time International Ratio 1.1, Activated Partial Thromboplast Time 39H, Sodium Level 131L, Potassium Level 4.9, Chloride Level 95L, Carbon Dioxide Level 24, Anion Gap 12, Blood Urea Nitrogen 67H, Creatinine 11.4H, Estimat Glomerular Filtration Rate 4.1, Glucose Level 165H, Calcium Level 8.5, Lipase 588H Height (Feet): 5 Height (Inches): 5.00 Weight (Pounds): 331 General Appearance: no apparent distress Cardiovascular: normal rate Respiratory/Chest: decreased breath sounds Abdomen: other - obese Objective no change Bryan Hunter MD Nov 15, 2018 13:34
--- NOTE | 2018-11-15 13:43 | General Progress Note ---
Assessment/Plan Problem List: (1) Congestive heart failure (CHF) ICD Codes: I50.9 - Heart failure, unspecified SNOMED: 11913367 (2) Open wound of right great toe ICD Codes: S91.101A - Unspecified open wound of right great toe without damage to nail, initial encounter SNOMED: 425199135 (3) Back pain ICD Codes: M54.9 - Dorsalgia, unspecified SNOMED: 305171245 (4) General weakness ICD Codes: R53.1 - Weakness SNOMED: 08966180 (5) ESRD (end stage renal disease) on dialysis ICD Codes: N18.6 - End stage renal disease; Z99.2 - Dependence on renal dialysis SNOMED: 747280755 (6) Diabetes mellitus type 2 with neurological manifestations ICD Codes: E11.49 - Type 2 diabetes mellitus with other diabetic neurological complication SNOMED: 24025981, 149596770 (7) Anemia ICD Codes: D64.9 - Anemia, unspecified SNOMED: 691667678 (8) Intractable back pain ICD Codes: M54.9 - Dorsalgia, unspecified SNOMED: 180426685 (9) Pancreatitis ICD Codes: K85.90 - Acute pancreatitis without necrosis or infection, unspecified SNOMED: 03398180 (10) Hypertension ICD Codes: I10 - Essential (primary) hypertension SNOMED: 24998320 (11) Morbid obesity ICD Codes: E66.01 - Morbid (severe) obesity due to excess calories SNOMED: 995693300, 99151552250852 Status: stable, progressing Assessment/Plan o2 pulm tx abx wound care dialysis cbc bmp am dc w hh if clear Subjective Constitutional: Reports: weakness Allergies: Coded Allergies: NO KNOWN ALLERGIES (Unverified Allergy, Unknown, 10/15/15) All Systems: reviewed and negative except above Subjective feeling better Objective Last 24 Hour Vital Signs Date Time Temp Pulse Resp B/P (MAP) Pulse Ox O2 Delivery O2 Flow Rate FiO2 11/15/18 11:29 Room Air 11/15/18 09:57 Room Air 11/15/18 09:00 Room Air 11/15/18 08:00 98.4 75 19 141/95 (110) 96 11/15/18 04:00 97.6 80 20 43/72 (62) 97 11/15/18 00:00 97.3 76 20 162/53 (89) 94 12/20/18 21:00 Room Air 11/14/18 20:00 97.3 73 20 131/77 (95) 95 11/14/18 16:00 96.5 80 18 140/57 (84) 96 11/14/18 14:13 77 143/84 11/14/18 14:06 143/84 11/14/18 14:02 77 143/84 (103) Intake and Output 11/14/18 11/15/18 19:00 07:00 Intake Total 558 ml Output Total 0 ml Balance 558 ml 0 ml Intake Oral 558 ml Output Urine Total 0 ml # Voids 4 Laboratory Tests 11/15/18 05:45: White Blood Count 10.2, Red Blood Count 2.79L, Hemoglobin 6.7*L, Hematocrit 23.5L, Mean Corpuscular Volume 84, Mean Corpuscular Hemoglobin 24.2L, Mean Corpuscular Hemoglobin Concent 28.7L, Red Cell Distribution Width 20.0H, Platelet Count 195, Mean Platelet Volume 6.8, Neutrophils (%) (Auto) , Lymphocytes (%) (Auto) , Monocytes (%) (Auto) , Eosinophils (%) (Auto) , Basophils (%) (Auto) , Differential Total Cells Counted 100, Neutrophils % ( Manual) 56, Lymphocytes % (Manual) 14L, Monocytes % (Manual) 8, Eosinophils % ( Manual) 21H, Basophils % (Manual) 1, Band Neutrophils 0, Nucleated Red Blood Cells 1, Platelet Estimate Adequate, Platelet Morphology Normal, Hypochromasia 4 +, Anisocytosis 2+, Prothrombin Time 12.0H, Prothromb Time International Ratio 1.1, Activated Partial Thromboplast Time 39H, Sodium Level 131L, Potassium Level 4.9, Chloride Level 95L, Carbon Dioxide Level 24, Anion Gap 12, Blood Urea Nitrogen 67H, Creatinine 11.4H, Estimat Glomerular Filtration Rate 4.1, Glucose Level 165H, Calcium Level 8.5, Lipase 588H Height (Feet): 5 Height (Inches): 5.00 Weight (Pounds): 331 General Appearance: lethargic EENT: normal ENT inspection Neck: normal alignment Cardiovascular: normal peripheral pulses, normal rate, regular rhythm Respiratory/Chest: chest wall non-tender, lungs clear, normal breath sounds Abdomen: normal bowel sounds, non tender, soft Extremities: normal inspection Edema: no edema noted Arm (L), no edema noted Arm (R), no edema noted Leg (L), no edema noted Leg (R), no edema noted Pedal (L), no edema noted Pedal (R), no edema noted Generalized Neurologic: motor weakness Skin: normal pigmentation, warm/dry Roderick Henning DO Nov 15, 2018 13:43
[2018-11-15 13:53] LABS: ALANINE AMINOTRANSFERASE 23 U/L (12-78); ALBUMIN 3.4 G/DL (3.4-5.0); ALKALINE PHOSPHATASE 215 U/L (46-116); ASPARTATE AMINO TRANSFERASE 23 U/L (15-37); BILIRUBIN,DIRECT 0.2 MG/DL (0.0-0.3); BILIRUBIN,TOTAL 0.6 MG/DL (0.2-1.0); PHOSPHORUS 6.4 MG/DL (2.5-4.9)
[2018-11-15 16:00] VITALS: BP 154/79
--- NOTE | 2018-11-15 16:18 | Infectious Diseases Prog Note ---
Assessment/Plan Assessment/Plan Assessment: Probable UTI (+dysuria) -u/a wbc tnct, nit neg, leuk +3; ucx 10-20 C. albicans (colonzier) Back pain likely 2ry to acute pancreatitis- ? etiology -lipase ~1k -CXR: : Cardiac megaly and pulmonary venous congestion, similar to prior study on 10/28/2018 Afebrile No leukocytosis REcent R foot blisters/cellulitis, sp Rx -MRI R foot: Very limited exam, as described. No definite evidence of osteomyelitis. However, this is difficult to exclude with confidence given the limitations exam. Dorsal soft tissue edema. No definite focal drainable abscess -10/29 sp bedsie I+D; wound cx neg -10/25 s/p bedsdie I+D; wound cx not sent Recent polymicrobial Gram positive bacteremia- likely colonizers -10/25 BCx Neg (peripheral) -10/22 Bcx 1/4 CONS, 1/4 diphteroids; 10/24 2/4 S, mitis oralis (source? periheral or cental line) -2d Echo:No discrete vegetations seen, however SBE may not be excluded by transthoracic 2-D echo. Consider CLAY if clinically indicated. severe anemia ESRD on HD DM2 b/l eye blindness CHF (recent exacerbation 09/2018) bradycardia 2ry hyperparathyroidism CAD s/p stent AOCD s/p AVG w recent rupture HTN morbid obesity VRE and MRSA colonized Plan: -Continue empiric Ceftriaxone #5/5 for UTI -10/30 SP IV Vancomycin and Unasyn #7 -12/2 SP Clindamycin #3 -f/u cx -Monitor CBC/CMP, temperatures -GI, Podiatry f/u -wound care Subjective Allergies: Coded Allergies: NO KNOWN ALLERGIES (Unverified Allergy, Unknown, 10/15/15) Subjective afebrile at RA no leukocytosis Objective Vital Signs Last 24 Hour Vital Signs Date Time Temp Pulse Resp B/P (MAP) Pulse Ox O2 Delivery O2 Flow Rate FiO2 11/15/18 11:29 Room Air 11/15/18 09:57 Room Air 11/15/18 09:00 Room Air 11/15/18 08:00 98.4 75 19 141/95 (110) 96 11/15/18 04:00 97.6 80 20 43/72 (62) 97 11/15/18 00:00 97.3 76 20 162/53 (89) 94 11/14/18 21:00 Room Air 11/14/18 20:00 97.3 73 20 131/77 (95) 95 Height (Feet): 5 Height (Inches): 5.00 Weight (Pounds): 331 Objective General Appearance: WD/WN, no apparent distress Lines, tubes and drains: peripheral HEENT: normocephalic, atraumatic Neck: non-tender, normal alignment Respiratory/Chest: chest wall non-tender, lungs clear Cardiovascular/Chest: normal peripheral pulses Abdomen: normal bowel sounds, non tender Genitourinary/Rectal: normal genital exam Extremities: normal range of motion Laboratory Tests Test 11/15/18 05:45 White Blood Count 10.2 K/UL (4.8-10.8) Red Blood Count 2.79 M/UL (4.20-5.40) L Hemoglobin 6.7 G/DL (12.0-16.0) *L Hematocrit 23.5 % (37.0-47.0) L Mean Corpuscular Volume 84 FL (80-99) Mean Corpuscular Hemoglobin 24.2 PG (27.0-31.0) L Mean Corpuscular Hemoglobin Concent 28.7 G/DL (32.0-36.0) L Red Cell Distribution Width 20.0 % (11.6-14.8) H Platelet Count 195 K/UL (150-450) Mean Platelet Volume 6.8 FL (6.5-10.1) Neutrophils (%) (Auto) % (45.0-75.0) Lymphocytes (%) (Auto) % (20.0-45.0) Monocytes (%) (Auto) % (1.0-10.0) Eosinophils (%) (Auto) % (0.0-3.0) Basophils (%) (Auto) % (0.0-2.0) Differential Total Cells Counted 100 Neutrophils % (Manual) 56 % (45-75) Lymphocytes % (Manual) 14 % (20-45) L Monocytes % (Manual) 8 % (1-10) Eosinophils % (Manual) 21 % (0-3) H Basophils % (Manual) 1 % (0-2) Band Neutrophils 0 % (0-8) Nucleated Red Blood Cells 1 /100 WBC Platelet Estimate Adequate Platelet Morphology Normal Hypochromasia 4+ Anisocytosis 2+ Prothrombin Time 12.0 SEC (9.30-11.50) H Prothromb Time International Ratio 1.1 (0.9-1.1) Activated Partial Thromboplast Time 39 SEC (23-33) H Sodium Level 131 MMOL/L (136-145) L Potassium Level 4.9 MMOL/L (3.5-5.1) Chloride Level 95 MMOL/L (98-107) L Carbon Dioxide Level 24 MMOL/L (21-32) Anion Gap 12 mmol/L (5-15) Blood Urea Nitrogen 67 mg/dL (7-18) H Creatinine 11.4 MG/DL (0.55-1.30) H Estimat Glomerular Filtration Rate 4.1 mL/min (>60) Glucose Level 165 MG/DL (74-106) H Calcium Level 8.5 MG/DL (8.5-10.1) Phosphorus Level 6.4 MG/DL (2.5-4.9) H Magnesium Level 2.7 MG/DL (1.8-2.4) H Total Bilirubin 0.6 MG/DL (0.2-1.0) Direct Bilirubin 0.2 MG/DL (0.0-0.3) Aspartate Amino Transf (AST/SGOT) 23 U/L (15-37) Alanine Aminotransferase (ALT/SGPT) 23 U/L (12-78) Alkaline Phosphatase 215 U/L (46-116) H Total Protein 7.5 G/DL (6.4-8.2) Albumin 3.4 G/DL (3.4-5.0) Lipase 588 U/L (73-393) H Current Medications Medications (Trade) Dose Ordered Sig/Josi Route PRN Reason Start Time Stop Time Status Last Admin Dose Admin Acetaminophen (Tylenol) 650 mg Q4H PRN ORAL Mild Pain/Temp > 100.5 11/13/18 19:20 12/06/18 19:19 Acetaminophen/ Hydrocodone Bitart (Roscoe 10/325) 1 tab Q4H PRN ORAL For Pain 11/13/18 19:24 1218 19:23 11/15/18 06:06 Amlodipine Besylate (Norvasc) 10 mg DAILY ORAL 11/14/18 09:00 12/06/18 08:59 11/14/18 14:13 Atorvastatin Calcium (Lipitor) 10 mg BEDTIME ORAL 11/13/18 21:00 12/06/18 20:59 11/14/18 22:03 Ceftriaxone Sodium 1 gm/ Dextrose 55 ml @ 110 mls/hr DAILY IVPB 11/14/18 09:00 11/18/18 13:29 11/15/18 12:57 Clonidine HCl (Catapres Tab) 0.1 mg Q4H PRN ORAL For High Blood Pressure 11/13/18 19:26 12/06/18 19:25 Dextrose (Dextrose 50%) 25 ml Q30M PRN IV Hypoglycemia 11/13/18 19:23 12/13/18 19:22 Dextrose (Dextrose 50%) 50 ml Q30M PRN IV Hypoglycemia 11/13/18 19:23 12/13/18 19:22 Diphenhydramine HCl (Benadryl) 50 mg Q6H PRN ORAL Itching 11/13/18 19:21 12/13/18 19:20 11/14/18 19:53 Docusate Sodium (Colace) 100 mg THREE TIMES A DAY ORAL 11/14/18 09:00 12/07/18 12:59 11/15/18 12:59 Epoetin Jose De Jesus (Procrit (for ESRD on dialysis)) 20,000 units SUN-SUN-SUN SUBQ 11/13/18 21:00 12/06/18 20:59 11/13/18 21:00 Gabapentin (Neurontin) 300 mg THREE TIMES A DAY ORAL 11/14/18 09:00 12/12/18 17:59 11/15/18 12:59 Heparin Sodium (Porcine) (Heparin 5000 units/ml) 5,000 units EVERY 12 HOURS SUBQ 11/13/18 21:00 12/06/18 08:59 Heparin Sodium (Porcine) (Heparin Sod 1000 units/ml 10ml) 10,000 unit ONCE PRN INJ FOR HD USE ONLY 11/15/18 08:45 11/16/18 23:59 11/15/18 11:41 Insulin Aspart (NovoLOG) BEFORE MEALS AND HS SUBQ 11/13/18 21:00 12/06/18 07:29 11/15/18 06:03 Iron Sucrose 100 mg/Sodium Chloride 55 ml @ 200 mls/hr BEDTIME IV 11/13/18 21:00 11/18/18 21:17 11/14/18 22:15 Lisinopril (Zestril) 10 mg DAILY ORAL 11/14/18 09:00 12/06/18 08:59 11/14/18 14:06 Ondansetron HCl (Zofran) 4 mg Q6H PRN IVP Nausea & Vomiting 11/13/18 19:21 12/13/18 19:20 Pantoprazole (Protonix) 40 mg EVERY 12 HOURS ORAL 11/13/18 21:00 12/07/18 20:59 11/14/18 22:03 Phenazopyridine HCl (Pyridium) 100 mg THREE TIMES A DAY ORAL 11/14/18 09:00 12/12/18 12:59 11/15/18 12:59 Polyethylene Glycol (Miralax) 17 gm HSPRN PRN ORAL Constipation 11/13/18 19:24 12/13/18 19:23 11/14/18 22:04 Pyridoxine HCl (Vitamin B6) 50 mg DAILY ORAL 11/14/18 09:00 12/09/18 11:59 11/15/18 12:59 Sevelamer Carbonate (Renvela) 1,600 mg THREE TIMES A DAY ORAL 11/14/18 09:00 12/06/18 08:59 11/15/18 12:59 Thiamine HCl (Vitamin B1) 100 mg DAILY ORAL 11/14/18 09:00 12/09/18 11:59 11/15/18 12:58 Vitamin B Complex/ Vit C/Folic Acid (Nephrovite) 1 tab DAILY ORAL 11/14/18 09:00 12/10/18 08:59 11/15/18 13:00 Susi Vanegas M.D. Nov 15, 2018 16:18
[2018-11-15 20:00] VITALS: BP 165/75
[2018-11-15] MEDS ORDERED: ATORVASTATIN CA10 MG ORAL (20:27)
[2018-11-15] MEDS ORDERED: BENADRYL25 MG ORAL (20:27)
[2018-11-15] MEDS ORDERED: GABAPENTIN300 MG ORAL (20:27)
[2018-11-15] MEDS ORDERED: PHENAZOPYRIDIN100 MG ORAL (20:28)
[2018-11-15] MEDS ORDERED: NORCO 10-325 T1 EACH ORAL (20:28)
[2018-11-15] MEDS ORDERED: VITAMIN B-1100 MG ORAL (20:29)
[2018-11-15] MEDS ORDERED: PYRIDOXINE HCL50 MG ORAL (20:29)
[2018-11-15] MEDS: Epogen (for ESRD on dialysis) SUBQ SCH (21:16)
[2018-11-15] MEDS ORDERED: Tubing IV Secondary IV ONE (22:22)
[2018-11-15] MEDS ORDERED: NS 275ml ONE (22:22)
--- NOTE | 2018-11-17 08:32 | Discharge Summary ---
Discharge Summary Discharge Summary _ DATE OF ADMISSION: 11/06/2018 DATE OF DISCHARGE: 11/15/2018 DISCHARGED BY: Dr. Henning REASON FOR ADMISSION: 63 years old female with past medical history of COPD/asthma, hypertension, congestive heart failure, diabetes mellitus, end-stage renal disease on hemodialysis, bilateral blindness, morbid obesity, peripheral neuropathy, anemia , Jehovah witness, lumbar radiculopathy, presented to emergency room for evaluation due to increased low back pain. Laboratory workup revealed no leukocytosis ,hemoglobin 6.6 ,hematocrit 22.9. BUN 68, creatinine 8.9, consistent with known history of end-stage renal disease. Stable LFT. Lipase 1086. TSH stable Patient admitted with diagnosis of pancreatitis, severe anemia. CONSULTANTS: kindergartners helper Dr. Avila pulmonary Dr. Murillo ID specialist Dr. Long GI specialist Dr. Garcia juvenile detention officer Dr. Hunter cabinet installer/oncologist Dr. Lizama psychiatrist Dr. Lawrence heat curer Dr. Jean [facility] COURSE: Patient admitted. Hemodialysis was arranged as per juvenile detention officer. GI consult was requested. Pain management was addressed. Lipase trending down , prior to discharge 588. CA-19-9 negative. Patient had recent colonoscopy at [facility] [place] which was unremarkable. Patient status post recent EGD , which showed gastritis , but no active source of bleeding was identified. Lipid panel was stable. Patient was ordered CT scan of abdomen and pelvis, however unable to perform due to morbid obesity. Patient will need endoscopic ultrasound as outpatient. Diet was slowly advanced as tolerated. Antiemetic provided as needed. Patient started on PPI. SASKIA screen was negative. Cardiology closely followed. Blood pressure was managed with calcium channel hardik and MARCELLO inhibitor as well as routine hemodialysis. Patient noted to be bradycardic , while on telemetry floor. Patient was taken off beta-hardik and bradycardia resolved. Patient also noted to have recurrent nonsustained ventricular tachycardia. There was no evidence of syncope or sustained ventricular tachycardia. Nuclear stress test done at [facility] on 10/25/2018 and revealed no evidence of ischemia. Ejection fraction 55% Lipi8d panel was stable. Statin was continued. Nephrology closely followed. Hemodialysis provided as per nephrology recommendations with close monitoring of electrolytes, volumes and renal parameters. [place] Glassware Replacer started patient on Epogen due to severe anemia and renal failure. Hemodialysis provided via Perma catheter. ID specialist closely followed. Urinalysis revealed pyuria ,many bacteria ,+3 leukocyte esterase. Urine cultures showed Candice , likely colonizer as per infectious disease specialist. Patient was on empiric antibiotics for treatment of urinary tract infection. Waist Fitter followed. Patient had anemia of chronic disease due to underlying chronic medical issues, multifactorial. Hemoglobin and hematocrit were closely followed. Patient would not agree with the transfusion due to restorationism beliefs /Jehovah witness. Epogen started 3 times a week. Patient was taken off heparin drip subcutaneously, and was on sequential compression device for DVT prophylaxis. Blood draws were minimized. Title Closer followed for right foot wounds: dorsal and lateral midfoot and medial hallux . According to heat curer there were superficial ulceration , and no acute surgical intervention was necessary. Arterial Doppler of the right lower extremity showed moderate ischemia at rest tibial artery . Right foot x-ray revealed no acute bony trauma, but showed evidence of osteoporosis. Right foot MRI revealed no definite evidence of osteomyelitis. Noted dorsal soft tissue edema. No definite focal drainable abscess. Local wound care provided as per heat curer recommendations. Psychiatry followed. Psychiatrist diagnosed patient with major depression with psychotic features. Psychiatric medication regimen was optimized to stabilize her mood. Cognitive behavioral therapy provided Diet was slowly advanced. Patient was able to tolerate diet. Pain was controlled. Fall precautions were maintained. Blood sugar was managed with sliding scale of insulin. Hemoglobin A1c 6.3 at goal. Supportive care provided. TSH within normal limits. Lipase trending down. Hemoglobin and hematocrit at baseline. Patient stabilized and was ready for discharge home . Outpatient follow-up with primary care provider as well as with GI specialist for endoscopic ultrasound. FINAL DIAGNOSES: Pancreatitis Lumbar radiculopathy End-stage renal disease, on hemodialysis Severe anemia of chronic kidney disease Jehovah witness Coronary artery disease Hypertension Bradycardia Recurrent nonsustained ventricular tachycardia Hyperlipidemia Congestive heart failure with diastolic dysfunction Probable urinary tract infection Bilateral eye blindness Morbid obesity Diabetes mellitus type 2 Right lateral midfoot wound Right plantar hallux Major depression with psychotic feature DISCHARGE MEDICATIONS: See Medication Reconciliation list. DISCHARGE INSTRUCTIONS: Patient was discharged home with home health services. Follow up with primary care provider in one week. Endoscopic ultrasound as outpatient. Chastity Velasco NP Nov 17, 2018 08:32
== END 2018-11-15 22:23 | disposition home health service (06) | DRG 438 ==
LOC: EDBD 02:06 → EMR 02:23 → UNDOADMOB 03:53 → 2E 03:53 → EDBEDREQ 03:56 → 2E 11:51 → OBSVTOIN 11-07 11:51 → INTOOBSV 11-07 11:51 → 4E 11-13 19:00
PROC: 5A1D70Z Performance of Urinary Filtration, Intermittent, Less than 6 Hours Per Day (ICD-10-PCS; principal; 2018-11-07)
DX: K85.90 Acute pancreatitis without necrosis or infection, unspecified (principal); N18.6 End stage renal disease; I13.2 Hypertensive heart and chronic kidney disease with heart failure and with stage 5 chronic kidney disease, or end stage renal disease; I50.30 Unspecified diastolic (congestive) heart failure; L97.419 Non-pressure chronic ulcer of right heel and midfoot with unspecified severity; N25.81 Secondary hyperparathyroidism of renal origin; Z68.43 Body mass index [BMI] 50.0-59.9, adult; F33.9 Major depressive disorder, recurrent, unspecified; N39.0 Urinary tract infection, site not specified; E11.22 Type 2 diabetes mellitus with diabetic chronic kidney disease; Z99.2 Dependence on renal dialysis; E11.42 Type 2 diabetes mellitus with diabetic polyneuropathy; D63.1 Anemia in chronic kidney disease; E87.5 Hyperkalemia; H54.8 Legal blindness, as defined in USA; I25.10 Atherosclerotic heart disease of native coronary artery without angina pectoris; Z95.5 Presence of coronary angioplasty implant and graft; R00.1 Bradycardia, unspecified; M54.16 Radiculopathy, lumbar region; E66.01 Morbid (severe) obesity due to excess calories; F41.9 Anxiety disorder, unspecified
CPT/HCPCS: 36415; 71045; 80048; 80053; 80061; 80076; 81003; 82150; 82550; 82607; 82728; 82746; 82784; 82787; 82962; 83036; 83540; 83550; 83690; 83735; 84100; 84443; 84484; 84550; 85007; 85025; 85610; 85651; 85730; 86039; 86140; 87081; 87086; 93005; 93926; 94664; 94760; 96374; 96375; 97803; 99284; J1815; J2405

== ENCOUNTER 2018-11-17 09:09 | Inpatient (IN) | payer MEDICARE, OTHER ==
[~2018-11-17] VITALS: Ht 175.3 cm; Wt 160.6 kg
[~2018-11-17 09:09] MED LIST changes: +ATORVASTATIN CA10 MG ORAL; +BENADRYL25 MG ORAL; +GABAPENTIN300 MG ORAL; +NORCO 10-325 T1 EACH ORAL; +PHENAZOPYRIDIN100 MG ORAL; +PYRIDOXINE HCL50 MG ORAL; +UNOBMED; +VITAMIN B-1100 MG ORAL
[2018-11-17 09:40] VITALS: BP 148/86
[2018-11-17 10:30] VITALS: BP 160/48
--- NOTE | 2018-11-17 10:32 | Diagnostic Imaging Report ---
EXAM: XR Left Tibia and Fibula, 2 Views CLINICAL HISTORY: PAIN TECHNIQUE: Frontal and lateral views of the left tibia and fibula. COMPARISON: Left ankle x-rays dated 11/17/18. FINDINGS: Bones/joints: Mildly displaced oblique fracture of the distal fibular diaphysis. Displaced fracture of the medial malleolus. Soft tissues: Unremarkable. No radiopaque foreign body. IMPRESSION: 1. Mildly displaced oblique fracture of the distal fibular diaphysis. 2. Displaced fracture of the medial malleolus.
--- NOTE | 2018-11-17 10:35 | Diagnostic Imaging Report ---
EXAM: XR Left Ankle Complete, 3 or More Views CLINICAL HISTORY: PAIN TECHNIQUE: Frontal, lateral and oblique views of the left ankle. COMPARISON: X-rays of the left tibia and fibula dated 11/17/18 FINDINGS: Bones/joints: Displaced avulsion fracture of the medial malleolus. Mildly displaced oblique fracture of the distal femur diaphysis extending to the mortise. Widening of the anterior and medial mortise clear spaces, with mild tibiotalar subluxation, indicating underlying ligamentous disruption. Soft tissues: Bimalleolar soft tissue swelling. IMPRESSION: 1. Displaced avulsion fracture of the medial malleolus. 2. Mildly displaced oblique fracture of the distal femur diaphysis extending to the mortise. 3. Widening of the anterior and medial mortise clear spaces, with mild tibiotalar subluxation, indicating underlying ligamentous disruption. 4. Bimalleolar soft tissue swelling.
[2018-11-17 10:52] LABS: ANION GAP 11 mmol/L (5-15); BLOOD UREA NITROGEN 30 mg/dL (7-18); CALCIUM 9.1 MG/DL (8.5-10.1); CARBON DIOXIDE 27 MMOL/L (21-32); CHLORIDE 98 MMOL/L (98-107); CREATININE 6.7 MG/DL (0.55-1.30); POTASSIUM 4.2 MMOL/L (3.5-5.1); SODIUM 135 MMOL/L (136-145)
--- NOTE | 2018-11-17 10:56 | Emergency Room Report ---
History of Present Illness General Chief Complaint: Multiple Trauma/Fall Source: Patient, EMS Present Illness HPI Patient appears to have been recently dispositioned from the hospital Patient has multiple comorbidities including significant anemia Renal failure It's unclear if the patient was at home or at an assisted facility however reports that while going to the restroom she fell injuring her left leg Patient reports that she was laying there for several hours waiting for assistance to arrive Pain is localized to the distal left leg Denies any chest pain denies any back or flank pain Denies any headache Allergies: Coded Allergies: NO KNOWN ALLERGIES (Unverified Allergy, Unknown, 10/15/15) Patient History Past Medical History: see triage record Pertinent Family History: none Last Menstrual Period: na Reviewed Nursing Documentation: PMH: Agreed; PSxH: Agreed Nursing Documentation-PM Past Medical History: No History, Except For Hx Hypertension: Yes Hx Pacemaker: No Hx Asthma: Yes Hx COPD: Yes Hx Diabetes: Yes - Blind Hx Cancer: No Hx Gastrointestinal Problems: Yes Hx Dialysis: Yes - Hx Neurological Problems: No Hx Peripheral Neuropathy: Yes - secondary to DM Hx Tremors: Yes Hx Vertigo: Yes Hx Dizziness: Yes Hx Syncope: Yes Hx Headaches: Yes Hx Weakness: Yes Hx Fatigue: Yes Review of Systems All Other Systems: negative except mentioned in HPI Physical Exam Vital Signs Date Time Temp Pulse Resp B/P (MAP) Pulse Ox O2 Delivery O2 Flow Rate FiO2 11/17/18 09:03 98.1 86 20 143/79 98 Room Air 11/17/18 09:40 99 Sp02 EP Interpretation: reviewed, normal General Appearance: lethargic Head: atraumatic Eyes: bilateral eye other - Blind ENT: other - Large swollen tongue Neck: supple Respiratory: no retraction, no accessory muscle use, crackles - Bilaterally Cardiovascular #1: regular rate, rhythm Gastrointestinal: non tender, soft Musculoskeletal: swelling - Abrasion and tenderness to the left distal tibial fibular region pulses intact distally and proximally pain with any touch Neurologic: alert, responsive Skin: other - As above Procedures Splinting Splinting : Consent: Verbal Location: Left ankle Hand-Made Type: plaster Splint: sugar-tong Pre-Proc Neuro Vasc Exam: normal Post-Proc Neuro Vasc Exam: normal Patient Tolerated: Well Complications: None Progress Patient has sugar tong splint along with a posterior short leg craning a 3-way splint, Medical Decision Making Diagnostic Impression: Primary Impression: complex ankle fracture Additional Impressions: Anemia Renal failure ER Course Given the patient's history and presentation x-ray imaging was obtained Patient has significant fracture with dislocation Patient also requires some physical stimuli for arousal Patient has history of renal failure was dispositioned yesterday from the hospital Splinting is performed and the patient requires orthopedic consultation and inpatient care Labs Test 11/17/18 10:31 Sodium Level 135 MMOL/L (136-145) Potassium Level 4.2 MMOL/L (3.5-5.1) Chloride Level 98 MMOL/L (98-107) Carbon Dioxide Level 27 MMOL/L (21-32) Anion Gap 11 mmol/L (5-15) Blood Urea Nitrogen 30 mg/dL (7-18) Creatinine 6.7 MG/DL (0.55-1.30) Estimat Glomerular Filtration Rate 7.6 mL/min (>60) Glucose Level 52 MG/DL (74-106) Calcium Level 9.1 MG/DL (8.5-10.1) Rhythm Strip Diag. Results EP Interpretation: yes Rate: 77 Rhythm: NSR, no PVC's, no ectopy Other X-Ray Diagnostic Results Other X-Ray Diagnostic Results #1: X-Ray ordered: Left tib-fib # of Views/Limited Vs Complete: 2 View Indication: Pain EP Interpretation: Yes Interpretation: no soft tissue swelling, other - Distal tibial fibular fracture displacement soft tissue changes Impression: Other - Acute fracture, distal tibial fibular Electronically Signed by: Magdiel Kilgore DO Other X-Ray Diagnostic Results #2: X-Ray ordered: Left ankle # of Views/Limited Vs Complete: 3 View Indication: Pain EP Interpretation: Yes Interpretation: other Impression: Other - Acute fracture displacement tibial, fibular Electronically Signed by: Magdiel Kilgore DO Last Vital Signs Date Time Temp Pulse Resp B/P (MAP) Pulse Ox O2 Delivery O2 Flow Rate FiO2 11/17/18 10:01 98.0 11/17/18 09:40 88 18 148/86 99 Room Air 11/17/18 09:40 99 Status: improved Disposition: ADMITTED INPATIENT Condition: Serious Referrals: NOT CHOSEN IPA/,REFERRING (PCP) Magdiel Kilgore DO Nov 17, 2018 10:56
[2018-11-17] MEDS ORDERED: UNOBMED (11:55)
[2018-11-17 12:35] VITALS: BP 159/78
[2018-11-17] MEDS ORDERED: Zolpidem 5mg tab ORAL PRN (14:15)
[2018-11-17] MEDS ORDERED: Docusate 100mg cap ORAL PRN (14:15)
--- NOTE | 2018-11-17 15:16 | Consultation ---
Consult Note Consult Note Patient appears to have been recently dispositioned from the hospital Patient has multiple comorbidities including significant anemia Renal failure It's unclear if the patient was at home or at an assisted facility however reports that while going to the restroom she fell injuring her left leg Patient reports that she was laying there for several hours waiting for assistance to arrive Pain is localized to the distal left leg Denies any chest pain denies any back or flank pain Denies any headache NO KNOWN ALLERGIES (Unverified Allergy, Unknown, 10/15/15) Past Medical History: No History, Except For Hx Hypertension: Yes Hx Asthma: Yes Hx COPD: Yes Hx Diabetes: Yes - Blind Hx Gastrointestinal Problems: Yes Hx Dialysis: Yes - Hx Neurological Problems: No Hx Peripheral Neuropathy: Yes - secondary to DM Hx Tremors: Yes Hx Vertigo: Yes Hx Dizziness: Yes Hx Syncope: Yes Hx Headaches: Yes Hx Weakness: Yes Hx Fatigue: Yes seen examined discussed with septic tank installer/Plan Complex ankle fracture as of 11/16/18 when discharged (1) ESRD (end stage renal disease) on dialysis (2) Morbid obesity (3) Anemia Assessment: of CKD (4) Coronary artery disease (5) Patient is Denominational ESRD on HD PermCath placement. left Anemia of CKD DM2 b/l eye blindness CHF (recent exacerbation 09/2018) bradycardia 2ry hyperparathyroidism CAD s/p stent AOCD s/p AVG w recent rupture HTN morbid obesity Right lateral midfoot wound: Wound base is granular, superficial only dermal exposed. No acute SOI. No active purulent drainage. Allegra-wound margins are WNL. Right plantar hallux: Wound base is granular, superficial only dermal exposed. No acute SOI. No active purulent drainage. Allegra-wound margins are WNL. Plan Dialysis next 11/18 Venofer and EPO, thiamin and b6 diet to renal , medium CHO ortho eval cardio clearance Bryan Hunter MD Nov 17, 2018 15:16
[2018-11-17] MEDS ORDERED: Norco 5mg/325mg tab ORAL PRN (15:30)
[2018-11-17] MEDS: HYDROcodone/Acetamin 10/325 tab ORAL PRN (15:49)
[2018-11-17 16:00] VITALS: BP 158/82
[2018-11-17] MEDS ORDERED: Ipratropium 0.02% Inh Soln 2.5ml UD HHN PRN (16:15)
[2018-11-17] MEDS: NovoLOG Insulin Flexpen SUBQ SCH ×2 (16:30→20:28)
[2018-11-17] MEDS: Docusate 100mg cap ORAL SCH (17:42)
--- NOTE | 2018-11-17 18:46 | Consultation ---
History of Present Illness General Date patient seen: Nov 17, 2018 Time patient seen: 18:41 Chief Complaint: Multiple Trauma/Fall Present Illness HPI COVERAGE FOR LYLE Patient with ESRD, obesity, CAD, DM, CAD presents with fall, she is blind. She has Mildly displaced oblique fracture of the distal fibular diaphysis and Displaced fracture of the medial malleolus. Allergies: Coded Allergies: NO KNOWN ALLERGIES (Unverified Allergy, Unknown, 10/15/15) Medication History Scheduled Amlodipine Besylate* (Amlodipine Besylate*), 10 MG ORAL DAILY, (Reported) Atorvastatin Calcium* (Lipitor*), 10 MG ORAL BEDTIME, (Reported) Docusate Sodium (Dok), 100 MG PO BID, (Reported) Gabapentin* (Gabapentin*), 300 MG ORAL THREE TIMES A DAY, (Reported) Insulin Aspart (Novolog Flexpen), 1 UNITS SUBQ AC+HS, (Reported) Pantoprazole* (Pantoprazole*), 40 MG ORAL DAILY, (Reported) Phenazopyridine Hcl* (Pyridium*), 100 MG ORAL THREE TIMES A DAY, (Reported) Pyridoxine Hcl* (Vitamin B-6*), 50 MG ORAL DAILY, (Reported) Thiamine Hcl* (Vitamin B-1*), 100 MG ORAL DAILY, (Reported) Scheduled PRN Acetaminophen (Tylenol), 650 MG ORAL Q4HR PRN for Mild Pain/Temp > 100.5, ( Reported) Clonidine Hcl* (Catapres*), 0.1 MG ORAL EVERY 4 HOURS PRN for For High Blood Pressure, (Reported) Diphenhydramine Hcl* (Benadryl*), 50 MG ORAL Q6H PRN for Itching, (Reported) Hydrocodone Bit/Acetaminophen 10-325* ([place] 10-325*), 1 TAB ORAL Q4H PRN for For Pain, (Reported) Polyethylene Glycol 3350* (Miralax*), 17 GM ORAL DAILY PRN for Constipation, ( Reported) Miscellaneous Medications Unable to Obtain Medications (Unable To Obtain Meds), (Reported) Discontinued Medications Acetaminophen* (Acetaminophen 325MG Tablet*), 650 MG ORAL Q6H, (Reported) Discontinued Reason: MD discontinued med Al Hydroxide/mg Hydroxide (Mag-Al Plus Suspension), 30 ML PO Q6HR PRN for indigestion, (Reported) Discontinued Reason: MD discontinued med Albuterol Sulfate* (Albuterol Sulfate Hhn*), 3 ML INH Q6H PRN for Shortness of Breath, (Reported) Discontinued Reason: MD discontinued med Allopurinol* (Zyloprim*), 100 MG ORAL DAILY, (Reported) Discontinued Reason: MD discontinued med Amlodipine Besylate (Norvasc), 2.5 MG ORAL DAILY, (Reported) Discontinued Reason: MD discontinued med Ampicillin Sodium/Sulbactam Na (Unasyn 3 Gm Vial), 3 GM IJ DAILY, (Reported) Discontinued Reason: MD discontinued med Ampicillin Sodium/Sulbactam Na (Unasyn 3 Gm Vial), 3 GM IVPB DAILY, (Reported) Discontinued Reason: MD discontinued med Ascorbic Acid* (Ascorbic Acid*), 500 MG ORAL DAILY, (Reported) Discontinued Reason: MD discontinued med Aspirin Ec* (Aspirin Ec*), 81 MG ORAL DAILY, (Reported) Discontinued Reason: MD discontinued med Atorvastatin Calcium* (Atorvastatin Calcium*), 20 MG ORAL BEDTIME, (Reported) Discontinued Reason: Medication dose changed Calcium Acetate (Calcium Acetate), 667 MG PO, (Reported) Discontinued Reason: MD discontinued med Carvedilol (Coreg), 3.125 MG ORAL EVERY 12 HOURS, (Reported) Discontinued Reason: MD discontinued med Carvedilol* (Carvedilol*), 3.125 MG ORAL EVERY 12 HOURS, (Reported) Discontinued Reason: MD discontinued med Daptomycin (DAPTOmycin), 6 MG IV q48hrs, (Reported) Discontinued Reason: MD discontinued med Diphenhydramine Hcl* (Diphenhydramine Hcl*), 25 MG ORAL Q6H PRN for Itching, ( Reported) Discontinued Reason: Medication dose changed Ferrous Sulfate* (Ferrous Sulfate*), 325 MG ORAL DAILY, (Reported) Discontinued Reason: MD discontinued med Folic Acid/Vitamin B Comp W-C (Dialyvite 800 Tablet), 0.8 MG PO, (Reported) Discontinued Reason: MD discontinued med Furosemide* (Lasix*), 20 MG ORAL DAILY, (Reported) Discontinued Reason: MD discontinued med Gabapentin* (Gabapentin*), 400 MG ORAL TWICE A DAY, (Reported) Discontinued Reason: Medication dose changed Glimepiride* (Amaryl*), 4 MG ORAL BEFORE BREAKFAST Discontinued Reason: MD discontinued med Heparin Sod (Porcine) (Heparin Sodium*), 5,000 UNITS SUBQ EVERY 12 HOURS, ( Reported) Discontinued Reason: MD discontinued med Hydralazine HCl (Hydralazine HCl), 10 MG ORAL EVERY 6 HOURS, (Reported) Discontinued Reason: MD discontinued med Hydralazine Hcl* (Hydralazine Hcl*), 50 MG ORAL EVERY 8 HOURS, (Reported) Discontinued Reason: MD discontinued med Hydrocodone Bit/Acetaminophen 5-325* ([place] 5-325*), 1 TAB ORAL Q8HR, (Reported) Discontinued Reason: Medication dose changed Insulin Detemir (Levemir Flexpen), 10 UNITS SUBQ BEDTIME Discontinued Reason: MD discontinued med Insulin Human Lispro (Humalog), 0 SUBQ, (Reported) Discontinued Reason: MD discontinued med Insulin Regular, Human* (Novolin R*), 0 SUBQ AC+HS PRN for Sliding Scale, ( Reported) Discontinued Reason: MD discontinued med Isosorbide Dinitrate (Isosorbide Dinitrate*), 30 MG ORAL BID, (Reported) Discontinued Reason: MD discontinued med Lactulose (Lactulose*), 15 ML ORAL, (Reported) Discontinued Reason: MD discontinued med Lifitegrast (Xiidra), 1 EACH OP BID, (Reported) Discontinued Reason: MD discontinued med Lisinopril (Lisinopril*), 5 MG ORAL DAILY, (Reported) Discontinued Reason: Medication dose changed Losartan Potassium* (Losartan Potassium*), 50 MG ORAL DAILY, (Reported) Discontinued Reason: MD discontinued med Mupirocin Nasal (Bactroban Nasal), 1 APPLIC NASAL TID, (Reported) Discontinued Reason: MD discontinued med Nitrofurantoin Monohyd/M-Cryst* (Macrobid 100 Mg*), 100 MG ORAL EVERY 12 HOURS Discontinued Reason: MD discontinued med Nitroglycerin (Nitrostat), 0.4 MG SL Q5M X3 DOSES PRN for CHEST PAIN, (Reported) Discontinued Reason: MD discontinued med Ondansetron (Zofran), 4 MG ORAL Q6H PRN for Nausea & Vomiting, (Reported) Discontinued Reason: MD discontinued med Ranitidine Hcl* (Zantac*), 150 MG ORAL DAILY, (Reported) Discontinued Reason: MD discontinued med Sevelamer Carbonate (Renvela), 800 MG ORAL THREE TIMES A DAY, (Reported) Discontinued Reason: MD discontinued med Temazepam* (Restoril*), 15 MG ORAL BEDTIME PRN for Insomnia, (Reported) Discontinued Reason: MD discontinued med Tramadol Hcl* (Ultram*), 50 MG ORAL Q6H PRN for For Pain, (Reported) Discontinued Reason: MD discontinued med Unable to Obtain Medications (Unable To Obtain Meds), (Reported) Discontinued Reason: Medication dose changed Zolpidem Tartrate* (Zolpidem Tartrate*), 5 MG ORAL BEDTIME PRN for Insomnia, ( Reported) Discontinued Reason: MD discontinued med Patient History Healthcare decision maker Resuscitation status Advanced Directive on File Review of Systems Constitutional: Reports: no symptoms Eye: Reports: no symptoms ENT: Reports: no symptoms Respiratory: Reports: no symptoms Cardiovascular: Reports: no symptoms Gastrointestinal: Reports: no symptoms Genitourinary: Reports: no symptoms Musculoskeletal: Reports: no symptoms Skin: Reports: no symptoms Psychiatric: Reports: no symptoms Neurological: Reports: no symptoms Endocrine: Reports: no symptoms Hematologic/Lymphatic: Reports: no symptoms Physical Exam General Appearance: no apparent distress, alert Lines, tubes and drains: peripheral HEENT: normocephalic, atraumatic Neck: non-tender, normal alignment, supple Respiratory/Chest: chest wall non-tender, lungs clear Cardiovascular/Chest: normal peripheral pulses, normal rate Abdomen: normal bowel sounds, non tender Extremities: normal range of motion, non-tender, normal inspection Skin Exam: normal pigmentation 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 II-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 grossly normal, no motor/sensory deficits Last 24 Hour Vital Signs Date Time Temp Pulse Resp B/P (MAP) Pulse Ox O2 Delivery O2 Flow Rate FiO2 11/17/18 16:00 98.7 90 20 158/82 (107) 99 11/17/18 15:08 Room Air 11/17/18 12:35 97.5 83 20 159/78 (105) 99 11/17/18 12:16 97.9 85 21 157/72 100 Room Air 11/17/18 10:30 98.0 83 20 160/48 99 Room Air 11/17/18 10:01 98.0 11/17/18 09:40 98.4 88 18 148/86 99 Room Air 11/17/18 09:40 86 18 Room Air 99 11/17/18 09:03 98.1 86 20 143/79 98 Room Air Laboratory Tests Test 11/17/18 10:31 Sodium Level 135 MMOL/L (136-145) L Potassium Level 4.2 MMOL/L (3.5-5.1) Chloride Level 98 MMOL/L (98-107) Carbon Dioxide Level 27 MMOL/L (21-32) Anion Gap 11 mmol/L (5-15) Blood Urea Nitrogen 30 mg/dL (7-18) H Creatinine 6.7 MG/DL (0.55-1.30) H Estimat Glomerular Filtration Rate 7.6 mL/min (>60) Glucose Level 52 MG/DL (74-106) L Calcium Level 9.1 MG/DL (8.5-10.1) Height (Feet): 5 Height (Inches): 9.00 Weight (Pounds): 240 Medications Current Medications Medications (Trade) Dose Ordered Sig/Josi Route PRN Reason Start Time Stop Time Status Last Admin Dose Admin Acetaminophen (Tylenol) 650 mg Q4H PRN ORAL Mild Pain/Temp > 100.5 11/17/18 14:15 12/17/18 14:14 11/17/18 14:42 Acetaminophen/ Hydrocodone Bitart ([place] 10/325) 1 tab Q4H PRN ORAL For Pain 11/17/18 15:15 11/24/18 15:14 11/17/18 15:49 Amlodipine Besylate (Norvasc) 10 mg DAILY ORAL 11/18/18 09:00 12/18/18 08:59 Atorvastatin Calcium (Lipitor) 10 mg BEDTIME ORAL 11/17/18 21:00 12/17/18 20:59 Clonidine HCl (Catapres Tab) 0.1 mg Q4H PRN ORAL For High BP 160 syst 11/17/18 15:30 12/17/18 15:29 Dextrose (Dextrose 50%) 25 ml Q30M PRN IV Hypoglycemia 11/17/18 14:15 12/17/18 14:14 Dextrose (Dextrose 50%) 50 ml Q30M PRN IV Hypoglycemia 11/17/18 14:15 12/17/18 14:14 Diphenhydramine HCl (Benadryl) 50 mg Q6H PRN ORAL Itching 11/17/18 15:15 12/17/18 15:14 Docusate Sodium (Colace) 100 mg TID ORAL 11/17/18 18:00 12/17/18 17:59 11/17/18 17:42 Epoetin Jose De Jesus (Procrit (for ESRD on dialysis)) 20,000 units SUN-SUN-SUN SUBQ 11/18/18 21:00 12/18/18 20:59 Gabapentin (Neurontin) 300 mg THREE TIMES A DAY ORAL 11/17/18 18:00 12/17/18 17:59 11/17/18 17:42 Hydromorphone HCl (Dilaudid) 0.5 mg Q6H PRN IVP For Pain 11/17/18 16:15 11/24/18 16:14 Insulin Aspart (NovoLOG) BEFORE MEALS AND HS SUBQ 11/17/18 16:30 12/17/18 16:29 Ipratropium [place] (Atrovent) 500 mcg Q4H PRN HHN Shortness of Breath 11/17/18 16:15 11/22/18 16:14 Iron Sucrose 100 mg/Sodium Chloride 60 ml @ 240 mls/hr BEDTIME IV 11/17/18 21:00 11/21/18 21:14 Pantoprazole (Protonix) 40 mg BID ORAL 11/17/18 18:00 12/18/18 08:59 11/17/18 17:42 Pyridoxine HCl (Vitamin B6) 50 mg DAILY ORAL 11/18/18 09:00 12/18/18 08:59 Thiamine HCl (Vitamin B1) 100 mg DAILY ORAL 11/18/18 09:00 12/18/18 08:59 Zolpidem Tartrate (Ambien) 5 mg HSPRN PRN ORAL Insomnia 11/17/18 14:15 11/24/18 14:14 Assessment/Plan Status: stable Assessment/Plan Assessment: (1) ESRD (end stage renal disease) on dialysis (2) Morbid obesity (3) Anemia (4) Coronary artery disease (5) Patient is Yarsanism (6) Diabetes (7) CHF (8) Bradycardia (9) Anemia of chronic disease (10) Hypertension Plan Maintain HD Cleared to proceed with surgery if needed Continue atorvastatin Continue amlodipine Hold aspirin Jimmy Cline MD Nov 17, 2018 18:46
--- NOTE | 2018-11-17 19:35 | Pulmonology Progress Note ---
Assessment/Plan Assessment/Plan Pulmonary Consultation Note Recent Fall HPI Patient appears to have been recently discharged from the hospital Patient has multiple comorbidities including significant anemia Renal failure It's unclear if the patient was at home or at an assisted facility however reports that while going to the restroom she fell injuring her left leg Patient reports that she was laying there for several hours waiting for assistance to arrive Pain is localized to the distal left leg Denies any chest pain denies any back or flank pain Denies any headache Allergies: NO KNOWN ALLERGIES Patient History Past Medical History: CKD, HD, CAD, DM, HTN, Blindness, Vertigo, MARTIN All Other Systems: negative except mentioned in HPI Physical Exam Vital Signs Noted Date Time Temp Pulse Resp B/P (MAP) Pulse Ox O2 Delivery O2 Flow Rate FiO2 11/17/18 09:03 98.1 86 20 143/79 98 Room Air 11/17/18 09:40 99 General Appearance: lethargic Head: atraumatic Eyes: bilateral eye other - Blind ENT: other - Large swollen tongue Neck: supple Respiratory: no retraction, no accessory muscle use, crackles - Bilaterally Cardiovascular #1: regular rate, rhythm Gastrointestinal: non tender, soft Musculoskeletal: swelling - Abrasion and tenderness to the left distal tibial fibular region pulses intact distally and proximally pain with any touch Neurologic: alert, responsive Skin: other - As above Impression: complex ankle fracture on left Anemia (Jehova's Witness) Chronic Renal failure on HD CAD DM HTN Blindness Vertigo MARTIN intolerant of CPAP Plan - O2 /BiPAP PRN and at night - Atrovent HHN PRN - Incentive spirometer - DIGITIZER medications - PPX: SCD - IVF Cleared from [place] Perspective for planned surgery, suggest BiPAP 11/01 while sedated/sleeping Patient also requires some physical stimuli for arousal Patient has history of renal failure was dispositioned yesterday from the hospital Splinting is performed and the patient requires orthopedic consultation and inpatient care Labs Test 11/17/18 10:31 Sodium Level 135 MMOL/L (136-145) Potassium Level 4.2 MMOL/L (3.5-5.1) Chloride Level 98 MMOL/L (98-107) Carbon Dioxide Level 27 MMOL/L (21-32) Anion Gap 11 mmol/L (5-15) Blood Urea Nitrogen 30 mg/dL (7-18) Creatinine 6.7 MG/DL (0.55-1.30) Estimat Glomerular Filtration Rate 7.6 mL/min (>60) Glucose Level 52 MG/DL (74-106) Calcium Level 9.1 MG/DL (8.5-10.1) Rhythm Strip Diag. Results EP Interpretation: yes Rate: 77 Rhythm: NSR, no PVC's, no ectopy Other X-Ray Diagnostic Results Other X-Ray Diagnostic Results #1: X-Ray ordered: Left tib-fib # of Views/Limited Vs Complete: 2 View Indication: Pain EP Interpretation: Yes Interpretation: no soft tissue swelling, other - Distal tibial fibular fracture displacement soft tissue changes Impression: Other - Acute fracture, distal tibial fibular Electronically Signed by: Magdiel Kilgore, Other X-Ray Diagnostic Results #2: X-Ray ordered: Left ankle # of Views/Limited Vs Complete: 3 View Indication: Pain EP Interpretation: Yes Interpretation: other Impression: Other - Acute fracture displacement tibial, fibular Subjective ROS Limited/Unobtainable: No Musculoskeletal: Reports: pain Allergies: Coded Allergies: NO KNOWN ALLERGIES (Unverified Allergy, Unknown, 10/15/15) Objective Last 24 Hour Vital Signs Date Time Temp Pulse Resp B/P (MAP) Pulse Ox O2 Delivery O2 Flow Rate FiO2 11/17/18 16:00 98.7 90 20 158/82 (107) 99 11/17/18 15:08 Room Air 11/17/18 12:35 97.5 83 20 159/78 (105) 99 11/17/18 12:16 97.9 85 21 157/72 100 Room Air 11/17/18 10:30 98.0 83 20 160/48 99 Room Air 11/17/18 10:01 98.0 11/17/18 09:40 98.4 88 18 148/86 99 Room Air 11/17/18 09:40 86 18 Room Air 99 11/17/18 09:03 98.1 86 20 143/79 98 Room Air Laboratory Tests 11/17/18 10:31: Sodium Level 135L, Potassium Level 4.2, Chloride Level 98, Carbon Dioxide Level 27, Anion Gap 11, Blood Urea Nitrogen 30H, Creatinine 6.7H, Estimat Glomerular Filtration Rate 7.6, Glucose Level 52L, Calcium Level 9.1 Current Medications Medications (Trade) Dose Ordered Sig/Josi Route PRN Reason Start Time Stop Time Status Last Admin Dose Admin Acetaminophen (Tylenol) 650 mg Q4H PRN ORAL Mild Pain/Temp > 100.5 11/17/18 14:15 12/17/18 14:14 11/17/18 14:42 Acetaminophen/ Hydrocodone Bitart ([place] 10/325) 1 tab Q4H PRN ORAL For Pain 11/17/18 15:15 11/24/18 15:14 11/17/18 15:49 Amlodipine Besylate (Norvasc) 10 mg DAILY ORAL 11/18/18 09:00 12/18/18 08:59 Atorvastatin Calcium (Lipitor) 10 mg BEDTIME ORAL 11/17/18 21:00 12/17/18 20:59 Clonidine HCl (Catapres Tab) 0.1 mg Q4H PRN ORAL For High BP 160 syst 11/17/18 15:30 12/17/18 15:29 Dextrose (Dextrose 50%) 25 ml Q30M PRN IV Hypoglycemia 11/17/18 14:15 12/17/18 14:14 Dextrose (Dextrose 50%) 50 ml Q30M PRN IV Hypoglycemia 11/17/18 14:15 12/17/18 14:14 Diphenhydramine HCl (Benadryl) 50 mg Q6H PRN ORAL Itching 11/17/18 15:15 12/17/18 15:14 Docusate Sodium (Colace) 100 mg TID ORAL 11/17/18 18:00 12/17/18 17:59 11/17/18 17:42 Epoetin [place] De Jesus (Procrit (for ESRD on dialysis)) 20,000 units SUN-SUN-SUN SUBQ 11/18/18 21:00 12/18/18 20:59 Gabapentin (Neurontin) 300 mg THREE TIMES A DAY ORAL 11/17/18 18:00 12/17/18 17:59 11/17/18 17:42 Hydromorphone HCl (Dilaudid) 0.5 mg Q6H PRN IVP For Pain 11/17/18 16:15 11/24/18 16:14 Insulin Aspart (NovoLOG) BEFORE MEALS AND HS SUBQ 11/17/18 16:30 12/17/18 16:29 Ipratropium [place] (Atrovent) 500 mcg Q4H PRN HHN Shortness of Breath 11/17/18 16:15 11/22/18 16:14 Iron Sucrose 100 mg/Sodium Chloride 60 ml @ 240 mls/hr BEDTIME IV 11/17/18 21:00 11/21/18 21:14 Pantoprazole (Protonix) 40 mg BID ORAL 11/17/18 18:00 12/18/18 08:59 11/17/18 17:42 Pyridoxine HCl (Vitamin B6) 50 mg DAILY ORAL 11/18/18 09:00 12/18/18 08:59 Thiamine HCl (Vitamin B1) 100 mg DAILY ORAL 11/18/18 09:00 12/18/18 08:59 Zolpidem Tartrate (Ambien) 5 mg HSPRN PRN ORAL Insomnia 11/17/18 14:15 11/24/18 14:14 Jimmy Gay MD Nov 17, 2018 19:35
[2018-11-17 20:00] VITALS: BP 161/81
[2018-11-17] MEDS: Iron Sucrose 100 MG in NS 55 ML IV SCH (20:27)
[2018-11-18] VITALS (7 sets, daily range): BP systolic 125–176; BP diastolic 51–81
[2018-11-18] MEDS: NovoLOG Insulin Flexpen SUBQ SCH ×4 (06:30→21:00)
[2018-11-18] MEDS: Thiamine 100mg tab ORAL SCH (08:52)
[2018-11-18] MEDS: Docusate 100mg cap ORAL SCH ×3 (08:52→17:36)
[2018-11-18] MEDS: Pyridoxine 50mg tab ORAL SCH (08:52)
[2018-11-18] MEDS: HYDROcodone/Acetamin 10/325 tab ORAL PRN (08:53)
[2018-11-18 09:06] LABS: HEMATOCRIT 21.7 % (37.0-47.0); HEMOGLOBIN 6.3 G/DL (12.0-16.0); MEAN CORPUSCULAR VOLUME 83 FL (80-99); PLATELET COUNT 247 K/UL (150-450); RED BLOOD COUNT 2.62 M/UL (4.20-5.40); RED CELL DISTRIBUTION WIDTH 19.2 % (11.6-14.8); WHITE BLOOD COUNT 9.6 K/UL (4.8-10.8)
[2018-11-18 09:34] LABS: ALANINE AMINOTRANSFERASE 20 U/L (12-78); ALBUMIN 3.2 G/DL (3.4-5.0); ALBUMIN/GLOBULIN RATIO 0.8 (1.0-2.7); ALKALINE PHOSPHATASE 206 U/L (46-116); ANION GAP 13 mmol/L (5-15); ASPARTATE AMINO TRANSFERASE 32 U/L (15-37); BILIRUBIN,TOTAL 0.9 MG/DL (0.2-1.0); BLOOD UREA NITROGEN 37 mg/dL (7-18); CALCIUM 8.7 MG/DL (8.5-10.1); CARBON DIOXIDE 25 MMOL/L (21-32); CHLORIDE 96 MMOL/L (98-107); FERRITIN 773 NG/ML (8-388); POTASSIUM 4.6 MMOL/L (3.5-5.1); SODIUM 134 MMOL/L (136-145)
[2018-11-18 10:10] LABS: % IRON SATURATION 13 % (15-50); IRON 20 ug/dL (50-175); TOTAL IRON BINDING CAPACITY 160 ug/dL (250-450)
[2018-11-18 10:21] LABS: PHOSPHORUS 4.5 MG/DL (2.5-4.9)
--- NOTE | 2018-11-18 11:15 | History and Physical Report ---
DATE OF ADMISSION: 11/17/2018 APPROXIMATE TIME: 8 a.m. CONSULTANTS: 1. Santosh Covington M.D. 2. . 3. Bryan Hunter M.D. 4. Shalom Vinson M.D. 5. Malick Lizama M.D. 6. Franko Rogel M.D. CHIEF COMPLAINT: Fall, fracture of right tib-fib, ESRD, shortness of breath, CHF, anemia, and right foot wound. BRIEF HISTORY: This is a 63-year-old female, who lives at home with history of ESRD. Apparently, was in the wheelchair in the living room, tried to reach for something, fell down, and could not get up. She was sent to [facility], diagnosed with left ankle fracture tib-fib and admitted to medical floor for further treatment. Currently, calm in bed, slight leg pain. No complaint. REVIEW OF SYSTEMS: No chest pain. Slight short of breath. No nausea, vomiting, or diarrhea. PAST MEDICAL HISTORY: ESRD, CHF, shortness of breath, anemia, right foot wound, weakness, obese, and blind. PAST SURGICAL HISTORY: Shunt. ALLERGIES: Denies. MEDICATIONS: Include Procrit, pyridoxine, thiamine, amlodipine, atorvastatin, gabapentin, pantoprazole, ipratropium, hydromorphone, clonidine, diphenhydramine, Tylenol, and Zolpidem. SOCIAL HISTORY: No smoking. No alcohol. No intravenous drug abuse. FAMILY HISTORY: Noncontributory. PHYSICAL EXAMINATION: GENERAL: Slightly anxious in bed, oriented x3, no acute distress. VITAL SIGNS: Temperature is 98, pulse 84, respirations 17, and blood pressure 158/81. CARDIOVASCULAR: No murmur. LUNGS: Poor air exchange. ABDOMEN: Bowel sounds distant. EXTREMITIES: No cyanosis, clubbing, or edema. Left ankle in splint. NEUROLOGIC: The patient moves all extremities, slightly weak. LABORATORY AND DIAGNOSTIC DATA: Laboratories at this time show sodium 135, BUN and creatinine 30/6.7, glucose 52. Other laboratories are pending. ASSESSMENT: 1. Fall. 2. Fractured right tib-fib. 3. ESRD. 4. CHF. 5. Shortness of breath. 6. Obesity. 7. Blindness. 8. Anemia. 9. Weakness. 10. Hypertension. 11. Right foot wound. PLAN: Pain control. Wound care. CBC and BMP in the morning. Discharge to retirement if cleared by Ortho. Ortho discussed may be only option is to do cast or discuss with her further. We will continue to follow the patient. Roderick Henning D.O. DR: JAIRON JOB#: [id number] CC:
--- NOTE | 2018-11-18 13:20 | Consultation ---
History of Present Illness General Date patient seen: Nov 18, 2018 Chief Complaint: Multiple Trauma/Fall Present Illness Allergies: Coded Allergies: NO KNOWN ALLERGIES (Unverified Allergy, Unknown, 10/15/15) Medication History Scheduled Amlodipine Besylate* (Amlodipine Besylate*), 10 MG ORAL DAILY, (Reported) Atorvastatin Calcium* (Lipitor*), 10 MG ORAL BEDTIME, (Reported) Docusate Sodium (Dok), 100 MG PO BID, (Reported) Gabapentin* (Gabapentin*), 300 MG ORAL THREE TIMES A DAY, (Reported) Insulin Aspart (Novolog Flexpen), 1 UNITS SUBQ AC+HS, (Reported) Pantoprazole* (Pantoprazole*), 40 MG ORAL DAILY, (Reported) Phenazopyridine Hcl* (Pyridium*), 100 MG ORAL THREE TIMES A DAY, (Reported) Pyridoxine Hcl* (Vitamin B-6*), 50 MG ORAL DAILY, (Reported) Thiamine Hcl* (Vitamin B-1*), 100 MG ORAL DAILY, (Reported) Scheduled PRN Acetaminophen (Tylenol), 650 MG ORAL Q4HR PRN for Mild Pain/Temp > 100.5, ( Reported) Clonidine Hcl* (Catapres*), 0.1 MG ORAL EVERY 4 HOURS PRN for For High Blood Pressure, (Reported) Diphenhydramine Hcl* (Benadryl*), 50 MG ORAL Q6H PRN for Itching, (Reported) Hydrocodone Bit/Acetaminophen 10-325* ([place] 10-325*), 1 TAB ORAL Q4H PRN for For Pain, (Reported) Polyethylene Glycol 3350* (Miralax*), 17 GM ORAL DAILY PRN for Constipation, ( Reported) Miscellaneous Medications Unable to Obtain Medications (Unable To Obtain Meds), (Reported) Discontinued Medications Acetaminophen* (Acetaminophen 325MG Tablet*), 650 MG ORAL Q6H, (Reported) Discontinued Reason: MD discontinued med Al Hydroxide/mg Hydroxide (Mag-Al Plus Suspension), 30 ML PO Q6HR PRN for indigestion, (Reported) Discontinued Reason: MD discontinued med Albuterol Sulfate* (Albuterol Sulfate Hhn*), 3 ML INH Q6H PRN for Shortness of Breath, (Reported) Discontinued Reason: MD discontinued med Allopurinol* (Zyloprim*), 100 MG ORAL DAILY, (Reported) Discontinued Reason: MD discontinued med Amlodipine Besylate (Norvasc), 2.5 MG ORAL DAILY, (Reported) Discontinued Reason: MD discontinued med Ampicillin Sodium/Sulbactam Na (Unasyn 3 Gm Vial), 3 GM IJ DAILY, (Reported) Discontinued Reason: MD discontinued med Ampicillin Sodium/Sulbactam Na (Unasyn 3 Gm Vial), 3 GM IVPB DAILY, (Reported) Discontinued Reason: MD discontinued med Ascorbic Acid* (Ascorbic Acid*), 500 MG ORAL DAILY, (Reported) Discontinued Reason: MD discontinued med Aspirin Ec* (Aspirin Ec*), 81 MG ORAL DAILY, (Reported) Discontinued Reason: MD discontinued med Atorvastatin Calcium* (Atorvastatin Calcium*), 20 MG ORAL BEDTIME, (Reported) Discontinued Reason: Medication dose changed Calcium Acetate (Calcium Acetate), 667 MG PO, (Reported) Discontinued Reason: MD discontinued med Carvedilol (Coreg), 3.125 MG ORAL EVERY 12 HOURS, (Reported) Discontinued Reason: MD discontinued med Carvedilol* (Carvedilol*), 3.125 MG ORAL EVERY 12 HOURS, (Reported) Discontinued Reason: MD discontinued med Daptomycin (DAPTOmycin), 6 MG IV q48hrs, (Reported) Discontinued Reason: MD discontinued med Diphenhydramine Hcl* (Diphenhydramine Hcl*), 25 MG ORAL Q6H PRN for Itching, ( Reported) Discontinued Reason: Medication dose changed Ferrous Sulfate* (Ferrous Sulfate*), 325 MG ORAL DAILY, (Reported) Discontinued Reason: MD discontinued med Folic Acid/Vitamin B Comp W-C (Dialyvite 800 Tablet), 0.8 MG PO, (Reported) Discontinued Reason: MD discontinued med Furosemide* (Lasix*), 20 MG ORAL DAILY, (Reported) Discontinued Reason: MD discontinued med Gabapentin* (Gabapentin*), 400 MG ORAL TWICE A DAY, (Reported) Discontinued Reason: Medication dose changed Glimepiride* (Amaryl*), 4 MG ORAL BEFORE BREAKFAST Discontinued Reason: MD discontinued med Heparin Sod (Porcine) (Heparin Sodium*), 5,000 UNITS SUBQ EVERY 12 HOURS, ( Reported) Discontinued Reason: MD discontinued med Hydralazine HCl (Hydralazine HCl), 10 MG ORAL EVERY 6 HOURS, (Reported) Discontinued Reason: MD discontinued med Hydralazine Hcl* (Hydralazine Hcl*), 50 MG ORAL EVERY 8 HOURS, (Reported) Discontinued Reason: MD discontinued med Hydrocodone Bit/Acetaminophen 5-325* ([place] 5-325*), 1 TAB ORAL Q8HR, (Reported) Discontinued Reason: Medication dose changed Insulin Detemir (Levemir Flexpen), 10 UNITS SUBQ BEDTIME Discontinued Reason: MD discontinued med Insulin Human Lispro (Humalog), 0 SUBQ, (Reported) Discontinued Reason: MD discontinued med Insulin Regular, Human* (Novolin R*), 0 SUBQ AC+HS PRN for Sliding Scale, ( Reported) Discontinued Reason: MD discontinued med Isosorbide Dinitrate (Isosorbide Dinitrate*), 30 MG ORAL BID, (Reported) Discontinued Reason: MD discontinued med Lactulose (Lactulose*), 15 ML ORAL, (Reported) Discontinued Reason: MD discontinued med Lifitegrast (Xiidra), 1 EACH OP BID, (Reported) Discontinued Reason: MD discontinued med Lisinopril (Lisinopril*), 5 MG ORAL DAILY, (Reported) Discontinued Reason: Medication dose changed Losartan Potassium* (Losartan Potassium*), 50 MG ORAL DAILY, (Reported) Discontinued Reason: MD discontinued med Mupirocin Nasal (Bactroban Nasal), 1 APPLIC NASAL TID, (Reported) Discontinued Reason: MD discontinued med Nitrofurantoin Monohyd/M-Cryst* (Macrobid 100 Mg*), 100 MG ORAL EVERY 12 HOURS Discontinued Reason: MD discontinued med Nitroglycerin (Nitrostat), 0.4 MG SL Q5M X3 DOSES PRN for CHEST PAIN, (Reported) Discontinued Reason: MD discontinued med Ondansetron (Zofran), 4 MG ORAL Q6H PRN for Nausea & Vomiting, (Reported) Discontinued Reason: MD discontinued med Ranitidine Hcl* (Zantac*), 150 MG ORAL DAILY, (Reported) Discontinued Reason: MD discontinued med Sevelamer Carbonate (Renvela), 800 MG ORAL THREE TIMES A DAY, (Reported) Discontinued Reason: MD discontinued med Temazepam* (Restoril*), 15 MG ORAL BEDTIME PRN for Insomnia, (Reported) Discontinued Reason: MD discontinued med Tramadol Hcl* (Ultram*), 50 MG ORAL Q6H PRN for For Pain, (Reported) Discontinued Reason: MD discontinued med Unable to Obtain Medications (Unable To Obtain Meds), (Reported) Discontinued Reason: Medication dose changed Zolpidem Tartrate* (Zolpidem Tartrate*), 5 MG ORAL BEDTIME PRN for Insomnia, ( Reported) Discontinued Reason: MD discontinued med Patient History Healthcare decision maker Resuscitation status Advanced Directive on File Physical Exam Last 24 Hour Vital Signs Date Time Temp Pulse Resp B/P (MAP) Pulse Ox O2 Delivery O2 Flow Rate FiO2 11/18/18 09:30 125/79 (94) 11/18/18 09:00 Room Air 11/18/18 08:54 176/78 11/18/18 08:52 84 176/78 11/18/18 08:00 97.8 84 19 176/78 (110) 99 11/18/18 04:00 98.1 84 17 158/81 (106) 100 11/18/18 00:00 97.9 81 16 152/79 (103) 98 11/17/18 21:00 Room Air 11/17/18 20:54 70 20 Room Air 11/17/18 20:00 98.2 76 17 161/81 (107) 99 11/17/18 16:00 98.7 90 20 158/82 (107) 99 11/17/18 15:08 Room Air Intake and Output 11/17/18 11/18/18 18:59 06:59 Intake Total 420 ml Balance 420 ml Intake Oral 420 ml # Voids 4 # Bowel Movements 1 Laboratory Tests Test 11/18/18 08:30 White Blood Count 9.6 K/UL (4.8-10.8) Red Blood Count 2.62 M/UL (4.20-5.40) L Hemoglobin 6.3 G/DL (12.0-16.0) *L Hematocrit 21.7 % (37.0-47.0) L Mean Corpuscular Volume 83 FL (80-99) Mean Corpuscular Hemoglobin 24.1 PG (27.0-31.0) L Mean Corpuscular Hemoglobin Concent 29.1 G/DL (32.0-36.0) L Red Cell Distribution Width 19.2 % (11.6-14.8) H Platelet Count 247 K/UL (150-450) Mean Platelet Volume 6.9 FL (6.5-10.1) Neutrophils (%) (Auto) % (45.0-75.0) Lymphocytes (%) (Auto) % (20.0-45.0) Monocytes (%) (Auto) % (1.0-10.0) Eosinophils (%) (Auto) % (0.0-3.0) Basophils (%) (Auto) % (0.0-2.0) Differential Total Cells Counted 100 Neutrophils % (Manual) 69 % (45-75) Lymphocytes % (Manual) 12 % (20-45) L Monocytes % (Manual) 11 % (1-10) H Eosinophils % (Manual) 8 % (0-3) H Basophils % (Manual) 0 % (0-2) Band Neutrophils 0 % (0-8) Platelet Estimate Adequate Platelet Morphology Normal Polychromasia 1+ Hypochromasia 2+ Anisocytosis 2+ Tear Drop Cells 1+ Schistocytes 1+ Sodium Level 134 MMOL/L (136-145) L Potassium Level 4.6 MMOL/L (3.5-5.1) Chloride Level 96 MMOL/L (98-107) L Carbon Dioxide Level 25 MMOL/L (21-32) Anion Gap 13 mmol/L (5-15) Blood Urea Nitrogen 37 mg/dL (7-18) H Creatinine 8.0 MG/DL (0.55-1.30) H Estimat Glomerular Filtration Rate 6.2 mL/min (>60) Glucose Level 82 MG/DL (74-106) Calcium Level 8.7 MG/DL (8.5-10.1) Phosphorus Level 4.5 MG/DL (2.5-4.9) Magnesium Level 2.5 MG/DL (1.8-2.4) H Iron Level 20 ug/dL (50-175) L Total Iron Binding Capacity 160 ug/dL (250-450) L Percent Iron Saturation 13 % (15-50) L Unsaturated Iron Binding 140 ug/dL (112-346) Ferritin 773 NG/ML (8-388) H Total Bilirubin 0.9 MG/DL (0.2-1.0) Aspartate Amino Transf (AST/SGOT) 32 U/L (15-37) Alanine Aminotransferase (ALT/SGPT) 20 U/L (12-78) Alkaline Phosphatase 206 U/L (46-116) H C-Reactive Protein, Quantitative 18.6 mg/dL (0.00-0.90) H Pro-B-Type Natriuretic Peptide 61322 pg/mL (0-125) H Total Protein 7.3 G/DL (6.4-8.2) Albumin 3.2 G/DL (3.4-5.0) L Globulin 4.1 g/dL Albumin/Globulin Ratio 0.8 (1.0-2.7) L Vitamin B12 Level 1510 PG/ML (193-986) H Folate 18.1 NG/ML (8.6-58.9) Height (Feet): 5 Height (Inches): 9.00 Weight (Pounds): 240 Medications Current Medications Medications (Trade) Dose Ordered Sig/Josi Route PRN Reason Start Time Stop Time Status Last Admin Dose Admin Acetaminophen (Tylenol) 650 mg Q4H PRN ORAL Mild Pain/Temp > 100.5 11/17/18 14:15 12/17/18 14:14 11/17/18 14:42 Acetaminophen/ Hydrocodone Bitart ([place] 10/325) 1 tab Q4H PRN ORAL For Pain 11/17/18 15:15 11/24/18 15:14 11/18/18 08:53 Amlodipine Besylate (Norvasc) 10 mg DAILY ORAL 11/18/18 09:00 12/18/18 08:59 11/18/18 08:52 Atorvastatin Calcium (Lipitor) 10 mg BEDTIME ORAL 11/17/18 21:00 12/17/18 20:59 11/17/18 20:26 Clonidine HCl (Catapres Tab) 0.1 mg Q4H PRN ORAL For High BP 160 syst 11/17/18 15:30 12/17/18 15:29 11/18/18 08:54 Dextrose (Dextrose 50%) 25 ml Q30M PRN IV Hypoglycemia 11/17/18 14:15 12/17/18 14:14 11/18/18 06:07 Dextrose (Dextrose 50%) 50 ml Q30M PRN IV Hypoglycemia 11/17/18 14:15 12/17/18 14:14 Diphenhydramine HCl (Benadryl) 50 mg Q6H PRN ORAL Itching 11/17/18 15:15 12/17/18 15:14 Docusate Sodium (Colace) 100 mg TID ORAL 11/17/18 18:00 12/17/18 17:59 11/18/18 08:52 Epoetin [place] De Jesus (Procrit (for ESRD on dialysis)) 20,000 units SUN-SUN-SUN SUBQ 11/18/18 21:00 12/18/18 20:59 Gabapentin (Neurontin) 300 mg THREE TIMES A DAY ORAL 11/17/18 18:00 12/17/18 17:59 11/18/18 08:53 Hydromorphone HCl (Dilaudid) 0.5 mg Q6H PRN IVP For Pain 11/17/18 16:15 11/24/18 16:14 Insulin Aspart (NovoLOG) BEFORE MEALS AND HS SUBQ 11/17/18 16:30 12/17/18 16:29 Ipratropium [place] (Atrovent) 500 mcg Q4H PRN HHN Shortness of Breath 11/17/18 16:15 11/22/18 16:14 Iron Sucrose 100 mg/Sodium Chloride 60 ml @ 240 mls/hr BEDTIME IV 11/17/18 21:00 11/21/18 21:14 11/17/18 20:27 Pantoprazole (Protonix) 40 mg BID ORAL 11/17/18 18:00 12/18/18 08:59 11/18/18 08:52 Pyridoxine HCl (Vitamin B6) 50 mg DAILY ORAL 11/18/18 09:00 12/18/18 08:59 11/18/18 08:52 Thiamine HCl (Vitamin B1) 100 mg DAILY ORAL 11/18/18 09:00 12/18/18 08:59 11/18/18 08:52 Zolpidem Tartrate (Ambien) 5 mg HSPRN PRN ORAL Insomnia 11/17/18 14:15 11/24/18 14:14 Assessment/Plan Assessment/Plan HEMATOLOGY-ONCOLOGY CONSULTATION REFERRING PHYSICIAN: Roderick Henning REASON FOR CONSULT: Anemia DATE OF CONSULT: 11.18.2018 HISTORY OF PRESENT ILLNESS: The patient is a 63-year-old female. Pt is known to me from admission at [facility] and recently here approx 2 weeks ago. The patient had been recently hospitalized at [facility] for the last several weeks and then transferred inpatient rehabilitation for which she was just discharged on 2017. She now returns again feeling short of breath, tired and fatigued with a decreased hgb and is a [employer]. Hematology services consulted for the evaluation of ACD. Prior and current labs have been reviewed. 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 She broke her left distal tibial oblique fracture of the distal fibular diaphysis. PAST MEDICAL HISTORY: Anemia of chronic kidney disease, end-stage renal disease , secondary hyperparathyroidism, morbid obesity, hypertension. PAST SURGICAL HISTORY: PermCath placement, AV fistula, S/P recent rupture of AV fistula. FAMILY HISTORY: Positive for diabetes and hypertension. PHYSICAL EXAMINATION: VITAL SIGNS: Have been reviewed. GENERAL: The patient awake, alert, in mild distress. HEENT: Extraocular muscles intact. No lymphadenopathy noted. CARDIOVASCULAR: S1 and S2. No rubs or gallops. PULMONARY: Clear to auscultation bilaterally. No rales, rhonchi or wheezes. ABDOMINAL: Obese, nondistended and nontender. EXTREMITIES: A 2+ pitting edema. Left leg difficult to move MEDICATIONS: Current Medications Medications (Trade) Dose Ordered Sig/Josi Route PRN Reason Start Time Stop Time Status Last Admin Dose Admin Acetaminophen (Tylenol) 650 mg Q4H PRN ORAL Mild Pain/Temp > 100.5 11/17/18 14:15 12/17/18 14:14 11/17/18 14:42 Acetaminophen/ Hydrocodone Bitart ([place] 10/325) 1 tab Q4H PRN ORAL For Pain 11/17/18 15:15 11/24/18 15:14 11/18/18 08:53 Amlodipine Besylate (Norvasc) 10 mg DAILY ORAL 11/18/18 09:00 12/18/18 08:59 11/18/18 08:52 Atorvastatin Calcium (Lipitor) 10 mg BEDTIME ORAL 11/17/18 21:00 12/17/18 20:59 11/17/18 20:26 Clonidine HCl (Catapres Tab) 0.1 mg Q4H PRN ORAL For High BP 160 syst 11/17/18 15:30 12/17/18 15:29 11/18/18 08:54 Dextrose (Dextrose 50%) 25 ml Q30M PRN IV Hypoglycemia 11/17/18 14:15 12/17/18 14:14 11/18/18 06:07 Dextrose (Dextrose 50%) 50 ml Q30M PRN IV Hypoglycemia 11/17/18 14:15 12/17/18 14:14 Diphenhydramine HCl (Benadryl) 50 mg Q6H PRN ORAL Itching 11/17/18 15:15 12/17/18 15:14 Docusate Sodium (Colace) 100 mg TID ORAL 11/17/18 18:00 12/17/18 17:59 11/18/18 08:52 Epoetin Jose De Jesus (Procrit (for ESRD on dialysis)) 20,000 units SUN-SUN-SUN SUBQ 11/18/18 21:00 12/18/18 20:59 Gabapentin (Neurontin) 300 mg THREE TIMES A DAY ORAL 11/17/18 18:00 12/17/18 17:59 11/18/18 08:53 Hydromorphone HCl (Dilaudid) 0.5 mg Q6H PRN IVP For Pain 11/17/18 16:15 11/24/18 16:14 Insulin Aspart (NovoLOG) BEFORE MEALS AND HS SUBQ 11/17/18 16:30 12/17/18 16:29 Ipratropium [place] (Atrovent) 500 mcg Q4H PRN HHN Shortness of Breath 11/17/18 16:15 11/22/18 16:14 Iron Sucrose 100 mg/Sodium Chloride 60 ml @ 240 mls/hr BEDTIME IV 11/17/18 21:00 11/21/18 21:14 11/17/18 20:27 Pantoprazole (Protonix) 40 mg BID ORAL 11/17/18 18:00 12/18/18 08:59 11/18/18 08:52 Pyridoxine HCl (Vitamin B6) 50 mg DAILY ORAL 11/18/18 09:00 12/18/18 08:59 11/18/18 08:52 Thiamine HCl (Vitamin B1) 100 mg DAILY ORAL 11/18/18 09:00 12/18/18 08:59 11/18/18 08:52 Zolpidem Tartrate (Ambien) 5 mg HSPRN PRN ORAL Insomnia 11/17/18 14:15 11/24/18 14:14 LABORATORY AND DIAGNOSTIC DATA: as per emr Radiology: per emr # Anemia of chronic disease due to underlying chronic medical issues, multifactorial. 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 Hx of esrd on hd. --> Trend Hgb remains low at 6.5 --> 6.6 --> Prior anemia w/u has been reviewed. Ferritin >2000 --> No evidence of hemolysis is noted, peripheral smear has been reviewed. --> Hgb goal >7. Transfuse prn. --> EGD 10/24 completed, appreciate gir ecs --> off heparin sq at this time, is on scds --> bone marrow biopsy that can be done as an outpatient. agree with pcp --> EPOGEN since patient is a [employer] --> IRON IV since [employer] and no significant iron overload yet # Anemia of chronic kidney disease. --> Je[employer] Witness and does not take any blood products --> on epogen, will continue --> b1, b12, folate as outpatient as well # End-stage renal disease on hemodialysis. Nephro is following, appreciate recs. --> The patient is on hemodialysis due to shortness of breath. --> has to have ferritin >500 especially since JW # Mild hyperkalemia --> now improved, 4.6 --> HD 3x a week # Hypertension. Cardiology is following, appreciate recs. --> stress test pending as per cards, most recent test was negative per Dr. Vinson --> Adjust medications as appropriate. # Diabetes mellitus per primary care physician. --> Cont on insulin --> Cont to monitor BS levels # back pain -- consider pain service eval as required --> opiates as needed, imaging to eval # Left distal tibial oblique fracture of the distal fibular diaphysis --> as per ortho recs : GREATLY APPRECIATE CONSULTATION. Malick Lizama MD Nov 18, 2018 13:20
--- NOTE | 2018-11-18 14:00 | General Progress Note ---
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 ICD Codes: E11.49 - Type 2 diabetes mellitus with other diabetic neurological complication SNOMED: 80297009, 419461877 (2) ESRD (end stage renal disease) on dialysis ICD Codes: N18.6 - End stage renal disease; Z99.2 - Dependence on renal dialysis SNOMED: 950748926 (3) Tibia/fibula fracture ICD Codes: S82.209A - Unspecified fracture of shaft of unspecified tibia, initial encounter for closed fracture; S82.409A - Unspecified fracture of shaft of unspecified fibula, initial encounter for closed fracture SNOMED: 223648934 Assessment/Plan no need for basal or meal time insulin NISS ac / hs hypoglycemia protocol Subjective Allergies: Coded Allergies: NO KNOWN ALLERGIES (Unverified Allergy, Unknown, 10/15/15) All Systems: reviewed and negative except above Subjective events noted she was hypoglycemic this morning Objective Last 24 Hour Vital Signs Date Time Temp Pulse Resp B/P (MAP) Pulse Ox O2 Delivery O2 Flow Rate FiO2 11/18/18 09:30 125/79 (94) 11/18/18 09:00 Room Air 11/18/18 08:54 176/78 11/18/18 08:52 84 176/78 11/18/18 08:00 97.8 84 19 176/78 (110) 99 11/18/18 04:00 98.1 84 17 158/81 (106) 100 11/18/18 00:00 97.9 81 16 152/79 (103) 98 11/17/18 21:00 Room Air 11/17/18 20:54 70 20 Room Air 11/17/18 20:00 98.2 76 17 161/81 (107) 99 11/17/18 16:00 98.7 90 20 158/82 (107) 99 11/17/18 15:08 Room Air Intake and Output 11/17/18 11/18/18 18:59 06:59 Intake Total 420 ml Balance 420 ml Intake Oral 420 ml # Voids 4 # Bowel Movements 1 Laboratory Tests 11/18/18 08:30: White Blood Count 9.6, Red Blood Count 2.62L, Hemoglobin 6.3*L, Hematocrit 21.7L , Mean Corpuscular Volume 83, Mean Corpuscular Hemoglobin 24.1L, Mean Corpuscular Hemoglobin Concent 29.1L, Red Cell Distribution Width 19.2H, Platelet Count 247, Mean Platelet Volume 6.9, Neutrophils (%) (Auto) , Lymphocytes (%) (Auto) , Monocytes (%) (Auto) , Eosinophils (%) (Auto) , Basophils (%) (Auto) , Differential Total Cells Counted 100, Neutrophils % ( Manual) 69, Lymphocytes % (Manual) 12L, Monocytes % (Manual) 11H, Eosinophils % (Manual) 8H, Basophils % (Manual) 0, Band Neutrophils 0, Platelet Estimate Adequate, Platelet Morphology Normal, Polychromasia 1+, Hypochromasia 2+, Anisocytosis 2+, Tear Drop Cells 1+, Schistocytes 1+, Sodium Level 134L, Potassium Level 4.6, Chloride Level 96L, Carbon Dioxide Level 25, Anion Gap 13, Blood Urea Nitrogen 37H, Creatinine 8.0H, Estimat Glomerular Filtration Rate 6.2 , Glucose Level 82, Calcium Level 8.7, Phosphorus Level 4.5, Magnesium Level 2.5H, Iron Level 20L, Total Iron Binding Capacity 160L, Percent Iron Saturation 13L, Unsaturated Iron Binding 140, Ferritin 773H, Total Bilirubin 0.9, Aspartate Amino Transf (AST/SGOT) 32, Alanine Aminotransferase (ALT/SGPT) 20, Alkaline Phosphatase 206H, C-Reactive Protein, Quantitative 18.6H, Pro-B-Type Natriuretic Peptide 49698L, Total Protein 7.3, Albumin 3.2L, Globulin 4.1, Albumin/Globulin Ratio 0.8L, Vitamin B12 Level 1510H, Folate 18.1 Height (Feet): 5 Height (Inches): 9.00 Weight (Pounds): 240 General Appearance: no apparent distress Neck: normal alignment Cardiovascular: normal rate Respiratory/Chest: lungs clear Abdomen: normal bowel sounds Objective Current Medications Medications (Trade) Dose Ordered Sig/Josi Route PRN Reason Start Time Stop Time Status Last Admin Dose Admin Acetaminophen (Tylenol) 650 mg Q4H PRN ORAL Mild Pain/Temp > 100.5 11/17/18 14:15 12/17/18 14:14 11/17/18 14:42 Acetaminophen/ Hydrocodone Bitart ([place] 10/325) 1 tab Q4H PRN ORAL For Pain 11/17/18 15:15 11/24/18 15:14 11/18/18 08:53 Amlodipine Besylate (Norvasc) 10 mg DAILY ORAL 11/18/18 09:00 12/18/18 08:59 11/18/18 08:52 Atorvastatin Calcium (Lipitor) 10 mg BEDTIME ORAL 11/17/18 21:00 12/17/18 20:59 11/17/18 20:26 Clonidine HCl (Catapres Tab) 0.1 mg Q4H PRN ORAL For High BP 160 syst 11/17/18 15:30 12/17/18 15:29 11/18/18 08:54 Dextrose (Dextrose 50%) 25 ml Q30M PRN IV Hypoglycemia 11/17/18 14:15 12/17/18 14:14 11/18/18 06:07 Dextrose (Dextrose 50%) 50 ml Q30M PRN IV Hypoglycemia 11/17/18 14:15 12/17/18 14:14 Diphenhydramine HCl (Benadryl) 50 mg Q6H PRN ORAL Itching 11/17/18 15:15 12/17/18 15:14 Docusate Sodium (Colace) 100 mg TID ORAL 11/17/18 18:00 12/17/18 17:59 11/18/18 13:18 Epoetin Jose De Jesus (Procrit (for ESRD on dialysis)) 20,000 units SUN-SUN-SUN SUBQ 11/18/18 21:00 12/18/18 20:59 Gabapentin (Neurontin) 300 mg THREE TIMES A DAY ORAL 11/17/18 18:00 12/17/18 17:59 11/18/18 13:18 Hydromorphone HCl (Dilaudid) 0.5 mg Q6H PRN IVP For Pain 11/17/18 16:15 11/24/18 16:14 Insulin Aspart (NovoLOG) BEFORE MEALS AND HS SUBQ 11/17/18 16:30 12/17/18 16:29 Ipratropium [place] (Atrovent) 500 mcg Q4H PRN HHN Shortness of Breath 11/17/18 16:15 11/22/18 16:14 Iron Sucrose 100 mg/Sodium Chloride 60 ml @ 240 mls/hr BEDTIME IV 11/17/18 21:00 11/21/18 21:14 11/17/18 20:27 Pantoprazole (Protonix) 40 mg BID ORAL 11/17/18 18:00 12/18/18 08:59 11/18/18 08:52 Pyridoxine HCl (Vitamin B6) 50 mg DAILY ORAL 11/18/18 09:00 12/18/18 08:59 11/18/18 08:52 Thiamine HCl (Vitamin B1) 100 mg DAILY ORAL 11/18/18 09:00 12/18/18 08:59 11/18/18 08:52 Zolpidem Tartrate (Ambien) 5 mg HSPRN PRN ORAL Insomnia 11/17/18 14:15 11/24/18 14:14 Item Value Date Time Bedside Blood Glucose 125 mg/dl H 11/18/18 1126 Bedside Blood Glucose 93 mg/dl 11/18/18 0638 Bedside Blood Glucose 124 mg/dl H 11/17/18 2100 Bedside Blood Glucose 119 mg/dl 11/17/18 1630 Bedside Blood Glucose 63 mg/dl L 11/17/18 1201 rFanko Rogel MD Nov 18, 2018 14:00
[2018-11-18] MEDS ORDERED: LORazepam 1mg tab ORAL PRN (15:30)
--- NOTE | 2018-11-18 15:48 | Cardiology Progress Note ---
Assessment/Plan Status: stable Assessment/Plan Assessment/Plan Status: stable Assessment/Plan Assessment: (1) ESRD (end stage renal disease) on dialysis (2) Morbid obesity (3) Anemia (4) Coronary artery disease (5) Patient is [employer] (6) Diabetes (7) CHF (8) Bradycardia (9) Anemia of chronic disease (10) Hypertension Plan Maintain HD Cleared to proceed with surgery if needed Continue atorvastatin Continue amlodipine Hold aspirin Subjective Cardiovascular: Reports: no symptoms Respiratory: Reports: no symptoms Gastrointestinal/Abdominal: Reports: no symptoms Genitourinary: Reports: no symptoms Subjective Coverage for [place] No acute events, no complaints at this time, vitals stable Objective Last 24 Hour Vital Signs Date Time Temp Pulse Resp B/P (MAP) Pulse Ox O2 Delivery O2 Flow Rate FiO2 11/18/18 12:00 98.1 85 19 142/70 (94) 98 11/18/18 09:30 125/79 (94) 11/18/18 09:00 Room Air 11/18/18 08:54 176/78 11/18/18 08:52 84 176/78 11/18/18 08:00 97.8 84 19 176/78 (110) 99 11/18/18 04:00 98.1 84 17 158/81 (106) 100 11/18/18 00:00 97.9 81 16 152/79 (103) 98 11/17/18 21:00 Room Air 11/17/18 20:54 70 20 Room Air 11/17/18 20:00 98.2 76 17 161/81 (107) 99 11/17/18 16:00 98.7 90 20 158/82 (107) 99 General Appearance: no apparent distress, alert EENT: PERRL/EOMI, normal ENT inspection, TMs normal, pharynx normal Neck: non-tender, normal alignment, supple, normal inspection, no JVD Rhythm: NSR Cardiovascular: normal peripheral pulses, normal rate, regular rhythm Respiratory/Chest: chest wall non-tender, lungs clear, normal breath sounds Abdomen: normal bowel sounds, non tender, soft, no organomegaly, no mass Extremities: normal range of motion, non-tender Neurologic: client relationship executive II-XII grossly normal, abnormal gait Intake and Output 11/17/18 11/18/18 18:59 06:59 Intake Total 420 ml Balance 420 ml Intake Oral 420 ml # Voids 4 # Bowel Movements 1 Laboratory Tests Test 11/18/18 08:30 White Blood Count 9.6 K/UL (4.8-10.8) Red Blood Count 2.62 M/UL (4.20-5.40) L Hemoglobin 6.3 G/DL (12.0-16.0) *L Hematocrit 21.7 % (37.0-47.0) L Mean Corpuscular Volume 83 FL (80-99) Mean Corpuscular Hemoglobin 24.1 PG (27.0-31.0) L Mean Corpuscular Hemoglobin Concent 29.1 G/DL (32.0-36.0) L Red Cell Distribution Width 19.2 % (11.6-14.8) H Platelet Count 247 K/UL (150-450) Mean Platelet Volume 6.9 FL (6.5-10.1) Neutrophils (%) (Auto) % (45.0-75.0) Lymphocytes (%) (Auto) % (20.0-45.0) Monocytes (%) (Auto) % (1.0-10.0) Eosinophils (%) (Auto) % (0.0-3.0) Basophils (%) (Auto) % (0.0-2.0) Differential Total Cells Counted 100 Neutrophils % (Manual) 69 % (45-75) Lymphocytes % (Manual) 12 % (20-45) L Monocytes % (Manual) 11 % (1-10) H Eosinophils % (Manual) 8 % (0-3) H Basophils % (Manual) 0 % (0-2) Band Neutrophils 0 % (0-8) Platelet Estimate Adequate Platelet Morphology Normal Polychromasia 1+ Hypochromasia 2+ Anisocytosis 2+ Tear Drop Cells 1+ Schistocytes 1+ Sodium Level 134 MMOL/L (136-145) L Potassium Level 4.6 MMOL/L (3.5-5.1) Chloride Level 96 MMOL/L (98-107) L Carbon Dioxide Level 25 MMOL/L (21-32) Anion Gap 13 mmol/L (5-15) Blood Urea Nitrogen 37 mg/dL (7-18) H Creatinine 8.0 MG/DL (0.55-1.30) H Estimat Glomerular Filtration Rate 6.2 mL/min (>60) Glucose Level 82 MG/DL (74-106) Calcium Level 8.7 MG/DL (8.5-10.1) Phosphorus Level 4.5 MG/DL (2.5-4.9) Magnesium Level 2.5 MG/DL (1.8-2.4) H Iron Level 20 ug/dL (50-175) L Total Iron Binding Capacity 160 ug/dL (250-450) L Percent Iron Saturation 13 % (15-50) L Unsaturated Iron Binding 140 ug/dL (112-346) Ferritin 773 NG/ML (8-388) H Total Bilirubin 0.9 MG/DL (0.2-1.0) Aspartate Amino Transf (AST/SGOT) 32 U/L (15-37) Alanine Aminotransferase (ALT/SGPT) 20 U/L (12-78) Alkaline Phosphatase 206 U/L (46-116) H C-Reactive Protein, Quantitative 18.6 mg/dL (0.00-0.90) H Pro-B-Type Natriuretic Peptide 98708 pg/mL (0-125) H Total Protein 7.3 G/DL (6.4-8.2) Albumin 3.2 G/DL (3.4-5.0) L Globulin 4.1 g/dL Albumin/Globulin Ratio 0.8 (1.0-2.7) L Vitamin B12 Level 1510 PG/ML (193-986) H Folate 18.1 NG/ML (8.6-58.9) Jimmy Cline MD Nov 18, 2018 15:48
--- NOTE | 2018-11-18 15:59 | Pulmonology Progress Note ---
Assessment/Plan Assessment/Plan Pulmonary Progress Note Recent Fall HPI Patient appears to have been recently discharged from the hospital Patient has multiple comorbidities including significant anemia Renal failure It's unclear if the patient was at home or at an assisted facility however reports that while going to the restroom she fell injuring her left leg Patient reports that she was laying there for several hours waiting for assistance to arrive Pain is localized to the distal left leg Denies any chest pain denies any back or flank pain Denies any headache No new complaints Allergies: NO KNOWN ALLERGIES Patient History Past Medical History: CKD, HD, CAD, DM, HTN, Blindness, Vertigo, MARTIN All Other Systems: negative except mentioned in HPI Physical Exam Vital Signs Noted Date Time Temp Pulse Resp B/P (MAP) Pulse Ox O2 Delivery O2 Flow Rate FiO2 11/17/18 09:03 98.1 86 20 143/79 98 Room Air 11/17/18 09:40 99 General Appearance: lethargic Head: atraumatic Eyes: bilateral eye other - Blind ENT: other - Large swollen tongue Neck: supple Respiratory: no retraction, no accessory muscle use, crackles - Bilaterally Cardiovascular #1: regular rate, rhythm Gastrointestinal: non tender, soft Musculoskeletal: swelling - Abrasion and tenderness to the left distal tibial fibular region pulses intact distally and proximally pain with any touch Neurologic: alert, responsive Skin: other - As above Impression: complex ankle fracture on left Anemia ([employer]ova[employer] Witness) Chronic Renal failure on HD CAD DM HTN Blindness Vertigo MARTIN intolerant of CPAP Plan - O2 /BiPAP PRN and at night - Atrovent HHN PRN - Incentive spirometer - GUEST SERVICE MANAGER medications - PPX: SCD - IVF Cleared from Pumonary Perspective for planned surgery, suggest BiPAP 11/01 while sedated/sleeping Patient also requires some physical stimuli for arousal Patient has history of renal failure was dispositioned yesterday from the hospital Splinting is performed and the patient requires orthopedic consultation and inpatient care Labs Test 11/17/18 10:31 Sodium Level 135 MMOL/L (136-145) Potassium Level 4.2 MMOL/L (3.5-5.1) Chloride Level 98 MMOL/L (98-107) Carbon Dioxide Level 27 MMOL/L (21-32) Anion Gap 11 mmol/L (5-15) Blood Urea Nitrogen 30 mg/dL (7-18) Creatinine 6.7 MG/DL (0.55-1.30) Estimat Glomerular Filtration Rate 7.6 mL/min (>60) Glucose Level 52 MG/DL (74-106) Calcium Level 9.1 MG/DL (8.5-10.1) Rhythm Strip Diag. Results EP Interpretation: yes Rate: 77 Rhythm: NSR, no PVC's, no ectopy Other X-Ray Diagnostic Results Other X-Ray Diagnostic Results #1: X-Ray ordered: Left tib-fib # of Views/Limited Vs Complete: 2 View Indication: Pain EP Interpretation: Yes Interpretation: no soft tissue swelling, other - Distal tibial fibular fracture displacement soft tissue changes Impression: Other - Acute fracture, distal tibial fibular Electronically Signed by: Magdiel Kilgore, Other X-Ray Diagnostic Results #2: X-Ray ordered: Left ankle # of Views/Limited Vs Complete: 3 View Indication: Pain EP Interpretation: Yes Interpretation: other Impression: Other - Acute fracture displacement tibial, fibular Subjective ROS Limited/Unobtainable: No Allergies: Coded Allergies: NO KNOWN ALLERGIES (Unverified Allergy, Unknown, 10/15/15) Objective Last 24 Hour Vital Signs Date Time Temp Pulse Resp B/P (MAP) Pulse Ox O2 Delivery O2 Flow Rate FiO2 11/18/18 12:00 98.1 85 19 142/70 (94) 98 11/18/18 09:30 125/79 (94) 11/18/18 09:00 Room Air 11/18/18 08:54 176/78 11/18/18 08:52 84 176/78 11/18/18 08:00 97.8 84 19 176/78 (110) 99 11/18/18 04:00 98.1 84 17 158/81 (106) 100 11/18/18 00:00 97.9 81 16 152/79 (103) 98 11/17/18 21:00 Room Air 11/17/18 20:54 70 20 Room Air 11/17/18 20:00 98.2 76 17 161/81 (107) 99 11/17/18 16:00 98.7 90 20 158/82 (107) 99 Intake and Output 11/17/18 11/18/18 18:59 06:59 Intake Total 420 ml Balance 420 ml Intake Oral 420 ml # Voids 4 # Bowel Movements 1 Laboratory Tests 11/18/18 08:30: White Blood Count 9.6, Red Blood Count 2.62L, Hemoglobin 6.3*L, Hematocrit 21.7L , Mean Corpuscular Volume 83, Mean Corpuscular Hemoglobin 24.1L, Mean Corpuscular Hemoglobin Concent 29.1L, Red Cell Distribution Width 19.2H, Platelet Count 247, Mean Platelet Volume 6.9, Neutrophils (%) (Auto) , Lymphocytes (%) (Auto) , Monocytes (%) (Auto) , Eosinophils (%) (Auto) , Basophils (%) (Auto) , Differential Total Cells Counted 100, Neutrophils % ( Manual) 69, Lymphocytes % (Manual) 12L, Monocytes % (Manual) 11H, Eosinophils % (Manual) 8H, Basophils % (Manual) 0, Band Neutrophils 0, Platelet Estimate Adequate, Platelet Morphology Normal, Polychromasia 1+, Hypochromasia 2+, Anisocytosis 2+, Tear Drop Cells 1+, Schistocytes 1+, Sodium Level 134L, Potassium Level 4.6, Chloride Level 96L, Carbon Dioxide Level 25, Anion Gap 13, Blood Urea Nitrogen 37H, Creatinine 8.0H, Estimat Glomerular Filtration Rate 6.2 , Glucose Level 82, Calcium Level 8.7, Phosphorus Level 4.5, Magnesium Level 2.5H, Iron Level 20L, Total Iron Binding Capacity 160L, Percent Iron Saturation 13L, Unsaturated Iron Binding 140, Ferritin 773H, Total Bilirubin 0.9, Aspartate Amino Transf (AST/SGOT) 32, Alanine Aminotransferase (ALT/SGPT) 20, Alkaline Phosphatase 206H, C-Reactive Protein, Quantitative 18.6H, Pro-B-Type Natriuretic Peptide 11511L, Total Protein 7.3, Albumin 3.2L, Globulin 4.1, Albumin/Globulin Ratio 0.8L, Vitamin B12 Level 1510H, Folate 18.1 Current Medications Medications (Trade) Dose Ordered Sig/Josi Route PRN Reason Start Time Stop Time Status Last Admin Dose Admin Acetaminophen (Tylenol) 650 mg Q4H PRN ORAL Mild Pain/Temp > 100.5 11/17/18 14:15 12/17/18 14:14 11/17/18 14:42 Acetaminophen/ Hydrocodone Bitart ([place] 10/325) 1 tab Q4H PRN ORAL For Pain 11/17/18 15:15 11/24/18 15:14 11/18/18 08:53 Amlodipine Besylate (Norvasc) 10 mg DAILY ORAL 11/18/18 09:00 12/18/18 08:59 11/18/18 08:52 Atorvastatin Calcium (Lipitor) 10 mg BEDTIME ORAL 11/17/18 21:00 12/17/18 20:59 11/17/18 20:26 Clonidine HCl (Catapres Tab) 0.1 mg Q4H PRN ORAL For High BP 160 syst 11/17/18 15:30 12/17/18 15:29 11/18/18 08:54 Dextrose (Dextrose 50%) 25 ml Q30M PRN IV Hypoglycemia 11/17/18 14:15 12/17/18 14:14 11/18/18 06:07 Dextrose (Dextrose 50%) 50 ml Q30M PRN IV Hypoglycemia 11/17/18 14:15 12/17/18 14:14 Diphenhydramine HCl (Benadryl) 50 mg Q6H PRN ORAL Itching 11/17/18 15:15 12/17/18 15:14 Docusate Sodium (Colace) 100 mg TID ORAL 11/17/18 18:00 12/17/18 17:59 11/18/18 13:18 Epoetin Jose De Jesus (Procrit (for ESRD on dialysis)) 20,000 units SUN-SUN-SUN SUBQ 11/18/18 21:00 12/18/18 20:59 Gabapentin (Neurontin) 300 mg THREE TIMES A DAY ORAL 11/17/18 18:00 12/17/18 17:59 11/18/18 13:18 Hydromorphone HCl (Dilaudid) 0.5 mg Q6H PRN IVP For Pain 11/17/18 16:15 11/24/18 16:14 Insulin Aspart (NovoLOG) BEFORE MEALS AND HS SUBQ 11/17/18 16:30 12/17/18 16:29 Ipratropium [place] (Atrovent) 500 mcg Q4H PRN HHN Shortness of Breath 11/17/18 16:15 11/22/18 16:14 Iron Sucrose 100 mg/Sodium Chloride 60 ml @ 240 mls/hr BEDTIME IV 11/17/18 21:00 11/21/18 21:14 11/17/18 20:27 Lorazepam (Ativan) 1 mg Q6H PRN ORAL For Anxiety 11/18/18 15:30 11/25/18 15:29 Pantoprazole (Protonix) 40 mg BID ORAL 11/17/18 18:00 12/18/18 08:59 11/18/18 08:52 Pyridoxine HCl (Vitamin B6) 50 mg DAILY ORAL 11/18/18 09:00 12/18/18 08:59 11/18/18 08:52 Thiamine HCl (Vitamin B1) 100 mg DAILY ORAL 11/18/18 09:00 12/18/18 08:59 11/18/18 08:52 Zolpidem Tartrate (Ambien) 5 mg HSPRN PRN ORAL Insomnia 11/17/18 14:15 11/24/18 14:14 Jimmy Gay MD Nov 18, 2018 15:59
--- NOTE | 2018-11-18 19:15 | Consultation ---
DATE OF CONSULTATION: 11/18/2018 HISTORY OF PRESENT ILLNESS: This is a 63-year-old female patient who was admitted to the hospital with distal fibular fracture. She does have some mood lability, confusion, altered mental status, worsened by stress of her medical illness that is why there is a daily psychiatric consultation requested for this patient. She does have some mood lability, confusion, disorganized thought process, high levels of anxiety that is why her attending has requested daily psychiatric consultation for this patient to be seen. She was just recently admitted to [facility] and discharged. Now, she is back for her fracture. PAST MEDICAL HISTORY: She has a history of urinary tract infection, congestive heart failure, pancreatitis, renal failure, anemia, end-stage renal disease on dialysis, . ALLERGIES: She has no known drug allergies. MEDICATIONS: Psychotropic medications on admission, Neurontin 300 mg three times a day. She has a history of being on Namenda as well, but does have a lot of mental status and confusion, high levels of anxiety. PAIN ASSESSMENT: 0/10. DEVELOPMENTAL PROBLEMS: Denies. FAMILY PSYCHIATRIC HISTORY: Denies. SOCIAL HISTORY: The patient is currently living in a private residence. Financially supported by [employer] and Medicare. SUBSTANCE ABUSE HISTORY: Denies drug and alcohol use. PAIN ASSESSMENT: 0/10. DEVELOPMENTAL PROBLEMS: Denies. SOCIAL HISTORY: The patient lives in a private residence. Financially supported by [employer] and Medicare. MENTAL STATUS EXAMINATION: A 63-year-old female. Appearance is disheveled. Attitude, irritable and agitated. Affect, guarded and restricted. Intellect poor. Mood depressed and anxious. Motor activity, psychomotor agitation. Attention span is poor. Orientation x2. Speech is pressured. Thought process, disorganized and illogical. Insight and judgment is poor. DIAGNOSES: 1. Generalized anxiety disorder, rule out dementia with psychosis. 2. Medical, shortness of breath, anemia, fracture. 3. Psychosocial stressors, financial. PLAN: I am going to continue to treat this patient with Neurontin to control her anxiety. If she has anxiety or panic attacks, I am going to add a dose of Ativan 1 mg every 6 hours p.r.n. anxiety, agitation. Continue her Neurontin. She will continued to be followed by Psychiatry throughout hospital course. A 20 minutes of cognitive behavior therapy was provided to help this patient identify automatic negative thoughts and help convert those negative thoughts to more positive thoughts in order to reduce depression anxiety and have more adaptive behavior plan. Chart reviewed and discussed with staff. Seen and assessed in her room. I would like to thank Dr. Roderick Henning for this interesting consultation. Iker Lawrence M.D. DR: Lorenzo JOB#: [id number] CC:
[2018-11-18] MEDS: Iron Sucrose 100 MG in NS 55 ML IV SCH (20:29)
[2018-11-18] MEDS ORDERED: Epogen (for ESRD on dialysis) SUBQ SCH ×2 (21:00)
[2018-11-18] MEDS: Hydromorphone 0.5mg/0.5ml inj IVP PRN (21:40)
[2018-11-19] VITALS: BP 157/82
[2018-11-19] MEDS: HYDROcodone/Acetamin 10/325 tab ORAL PRN ×3 (01:58→23:17)
[2018-11-19 04:00] VITALS: BP 142/88
[2018-11-19] MEDS: NovoLOG Insulin Flexpen SUBQ SCH ×4 (06:14→20:21)
[2018-11-19 07:07] LABS: HEMATOCRIT 20.8 % (37.0-47.0); MEAN CORPUSCULAR VOLUME 83 FL (80-99); PLATELET COUNT 235 K/UL (150-450); RED BLOOD COUNT 2.51 M/UL (4.20-5.40); RED CELL DISTRIBUTION WIDTH 20.3 % (11.6-14.8); WHITE BLOOD COUNT 9.3 K/UL (4.8-10.8)
[2018-11-19 07:16] LABS: HEMOGLOBIN 6.1 G/DL (12.0-16.0)
[2018-11-19 07:23] LABS: ALANINE AMINOTRANSFERASE 20 U/L (12-78); ALBUMIN/GLOBULIN RATIO 0.8 (1.0-2.7); ALKALINE PHOSPHATASE 210 U/L (46-116); ANION GAP 12 mmol/L (5-15); ASPARTATE AMINO TRANSFERASE 28 U/L (15-37); BILIRUBIN,TOTAL 0.7 MG/DL (0.2-1.0); BLOOD UREA NITROGEN 47 mg/dL (7-18); CALCIUM 8.2 MG/DL (8.5-10.1); CARBON DIOXIDE 26 MMOL/L (21-32); CHLORIDE 95 MMOL/L (98-107); CREATININE 9.4 MG/DL (0.55-1.30); POTASSIUM 4.9 MMOL/L (3.5-5.1); SODIUM 133 MMOL/L (136-145)
[2018-11-19 08:00] VITALS: BP 147/84
[2018-11-19] MEDS: Pyridoxine 50mg tab ORAL SCH (09:30)
[2018-11-19] MEDS: Docusate 100mg cap ORAL SCH ×3 (09:30→17:10)
[2018-11-19] MEDS: Thiamine 100mg tab ORAL SCH (09:30)
--- NOTE | 2018-11-19 09:38 | General Progress Note ---
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 ICD Codes: E11.49 - Type 2 diabetes mellitus with other diabetic neurological complication SNOMED: 27842212, 071466310 (2) ESRD (end stage renal disease) on dialysis ICD Codes: N18.6 - End stage renal disease; Z99.2 - Dependence on renal dialysis SNOMED: 430203470 (3) Tibia/fibula fracture ICD Codes: S82.209A - Unspecified fracture of shaft of unspecified tibia, initial encounter for closed fracture; S82.409A - Unspecified fracture of shaft of unspecified fibula, initial encounter for closed fracture SNOMED: 343173895 Assessment/Plan add Januvia 25 mg daily continue NISS ac / hs hypoglycemia protocol Subjective Allergies: Coded Allergies: NO KNOWN ALLERGIES (Unverified Allergy, Unknown, 10/15/15) All Systems: reviewed and negative except above Subjective events noted Objective Last 24 Hour Vital Signs Date Time Temp Pulse Resp B/P (MAP) Pulse Ox O2 Delivery O2 Flow Rate FiO2 11/19/18 09:30 80 147/84 11/19/18 09:00 Room Air 11/19/18 08:00 97.9 80 19 147/84 (105) 98 11/19/18 07:54 81 20 Room Air 21 11/19/18 04:00 99.2 79 22 142/88 (106) 95 11/19/18 00:00 98.5 86 22 157/82 (107) 97 11/18/18 21:00 Room Air 11/18/18 20:43 78 20 Room Air 21 11/18/18 20:00 99.7 81 20 141/69 (93) 95 11/18/18 16:00 98.0 77 19 153/51 (85) 95 11/18/18 12:00 98.1 85 19 142/70 (94) 98 Intake and Output 11/18/18 11/19/18 19:00 07:00 Intake Total 360 ml Balance 360 ml Intake Oral 360 ml # Voids 3 2 Laboratory Tests 11/19/18 06:35: White Blood Count 9.3, Red Blood Count 2.51L, Hemoglobin 6.1*L, Hematocrit 20.8L , Mean Corpuscular Volume 83, Mean Corpuscular Hemoglobin 24.4L, Mean Corpuscular Hemoglobin Concent 29.5L, Red Cell Distribution Width 20.3H, Platelet Count 235, Mean Platelet Volume 6.0L, Neutrophils (%) (Auto) , Lymphocytes (%) (Auto) , Monocytes (%) (Auto) , Eosinophils (%) (Auto) , Basophils (%) (Auto) , Differential Total Cells Counted 100, Neutrophils % ( Manual) 67, Lymphocytes % (Manual) 14L, Monocytes % (Manual) 14H, Eosinophils % (Manual) 5H, Basophils % (Manual) 0, Band Neutrophils 0, Nucleated Red Blood Cells 3, Platelet Estimate Adequate, Platelet Morphology Normal, Polychromasia 1 +, Hypochromasia 3+, Anisocytosis 3+, Tear Drop Cells Occasional, Sodium Level 133L, Potassium Level 4.9, Chloride Level 95L, Carbon Dioxide Level 26, Anion Gap 12, Blood Urea Nitrogen 47H, Creatinine 9.4H, Estimat Glomerular Filtration Rate 5.1, Glucose Level 216#H, Calcium Level 8.2L, Total Bilirubin 0.7, Aspartate Amino Transf (AST/SGOT) 28, Alanine Aminotransferase (ALT/SGPT) 20, Alkaline Phosphatase 210H, Total Protein 7.0, Albumin 3.0L, Globulin 4.0, Albumin/Globulin Ratio 0.8L Height (Feet): 5 Height (Inches): 9.00 Weight (Pounds): 240 General Appearance: no apparent distress Neck: normal alignment Cardiovascular: normal rate Respiratory/Chest: lungs clear Abdomen: normal bowel sounds Pelvis: normal external exam Objective Current Medications Medications (Trade) Dose Ordered Sig/Josi Route PRN Reason Start Time Stop Time Status Last Admin Dose Admin Acetaminophen (Tylenol) 650 mg Q4H PRN ORAL Mild Pain/Temp > 100.5 11/17/18 14:15 12/17/18 14:14 11/17/18 14:42 Acetaminophen/ Hydrocodone Bitart ([place] 10/325) 1 tab Q4H PRN ORAL For Pain 11/17/18 15:15 11/24/18 15:14 11/19/18 01:58 Amlodipine Besylate (Norvasc) 10 mg DAILY ORAL 11/18/18 09:00 12/18/18 08:59 11/19/18 09:30 Atorvastatin Calcium (Lipitor) 10 mg BEDTIME ORAL 11/17/18 21:00 12/17/18 20:59 11/18/18 20:28 Clonidine HCl (Catapres Tab) 0.1 mg Q4H PRN ORAL For High BP 160 syst 11/17/18 15:30 12/17/18 15:29 11/18/18 08:54 Dextrose (Dextrose 50%) 25 ml Q30M PRN IV Hypoglycemia 11/17/18 14:15 12/17/18 14:14 11/18/18 06:07 Dextrose (Dextrose 50%) 50 ml Q30M PRN IV Hypoglycemia 11/17/18 14:15 12/17/18 14:14 Diphenhydramine HCl (Benadryl) 50 mg Q6H PRN ORAL Itching 11/17/18 15:15 12/17/18 15:14 Docusate Sodium (Colace) 100 mg TID ORAL 11/17/18 18:00 12/17/18 17:59 11/19/18 09:30 Epoetin Jose De Jesus (Procrit (for ESRD on dialysis)) 20,000 units SUN-SUN-SUN SUBQ 11/18/18 21:00 12/18/18 20:59 11/18/18 20:29 Gabapentin (Neurontin) 300 mg THREE TIMES A DAY ORAL 11/17/18 18:00 12/17/18 17:59 11/19/18 09:30 Hydromorphone HCl (Dilaudid) 0.5 mg Q6H PRN IVP For Pain 11/17/18 16:15 11/24/18 16:14 11/18/18 21:40 Insulin Aspart (NovoLOG) BEFORE MEALS AND HS SUBQ 11/17/18 16:30 12/17/18 16:29 11/19/18 06:14 Ipratropium [place] (Atrovent) 500 mcg Q4H PRN HHN Shortness of Breath 11/17/18 16:15 11/22/18 16:14 Iron Sucrose 100 mg/Sodium Chloride 60 ml @ 240 mls/hr BEDTIME IV 11/17/18 21:00 11/21/18 21:14 11/18/18 20:29 Lorazepam (Ativan) 1 mg Q6H PRN ORAL For Anxiety 11/18/18 15:30 11/25/18 15:29 Pantoprazole (Protonix) 40 mg BID ORAL 11/17/18 18:00 12/18/18 08:59 11/19/18 09:30 Pyridoxine HCl (Vitamin B6) 50 mg DAILY ORAL 11/18/18 09:00 12/18/18 08:59 11/19/18 09:30 Thiamine HCl (Vitamin B1) 100 mg DAILY ORAL 11/18/18 09:00 12/18/18 08:59 11/19/18 09:30 Zolpidem Tartrate (Ambien) 5 mg HSPRN PRN ORAL Insomnia 11/17/18 14:15 11/24/18 14:14 Item Value Date Time Bedside Blood Glucose 234 mg/dl H 11/19/18 0630 Bedside Blood Glucose 208 mg/dl H 11/18/18 2100 Bedside Blood Glucose 179 mg/dl H 11/18/18 1630 Bedside Blood Glucose 125 mg/dl H 11/18/18 1126 Franko Rogel MD Nov 19, 2018 09:38
[2018-11-19 12:09] VITALS: BP 146/79
--- NOTE | 2018-11-19 13:07 | Nephrology Progress Note ---
Assessment/Plan Problem List: (1) End stage renal disease on dialysis (2) Blindness of both eyes (3) Morbid obesity (4) Anemia (5) Patient is Sabianism (6) Tibia/fibula fracture Assessment Complex ankle fracture as of 11/16/18 when discharged (1) ESRD (end stage renal disease) on dialysis (2) Morbid obesity (3) Anemia Assessment: of CKD (4) Coronary artery disease (5) Patient is Sabian[employer] ESRD on HD PermCath placement. left Anemia of CKD DM2 b/l eye blindness CHF (recent exacerbation 09/2018) bradycardia 2ry hyperparathyroidism CAD s/p stent AOCD s/p AVG w recent rupture HTN morbid obesity Plan On HD now Tolerating well. per consultants Objective Objective Last 24 Hour Vital Signs Date Time Temp Pulse Resp B/P (MAP) Pulse Ox O2 Delivery O2 Flow Rate FiO2 11/19/18 12:09 98.8 78 18 146/79 (101) 98 78 11/19/18 09:30 80 147/84 11/19/18 09:00 Room Air 11/19/18 08:00 97.9 80 19 147/84 (105) 98 11/19/18 07:54 81 20 Room Air 21 11/19/18 04:00 99.2 79 22 142/88 (106) 95 11/19/18 00:00 98.5 86 22 157/82 (107) 97 11/18/18 21:00 Room Air 11/18/18 20:43 78 20 Room Air 21 11/18/18 20:00 99.7 81 20 141/69 (93) 95 11/18/18 16:00 98.0 77 19 153/51 (85) 95 Intake and Output 11/18/18 11/19/18 19:00 07:00 Intake Total 360 ml Balance 360 ml Intake Oral 360 ml # Voids 3 2 Laboratory Tests 11/19/18 06:35: White Blood Count 9.3, Red Blood Count 2.51L, Hemoglobin 6.1*L, Hematocrit 20.8L , Mean Corpuscular Volume 83, Mean Corpuscular Hemoglobin 24.4L, Mean Corpuscular Hemoglobin Concent 29.5L, Red Cell Distribution Width 20.3H, Platelet Count 235, Mean Platelet Volume 6.0L, Neutrophils (%) (Auto) , Lymphocytes (%) (Auto) , Monocytes (%) (Auto) , Eosinophils (%) (Auto) , Basophils (%) (Auto) , Differential Total Cells Counted 100, Neutrophils % ( Manual) 67, Lymphocytes % (Manual) 14L, Monocytes % (Manual) 14H, Eosinophils % (Manual) 5H, Basophils % (Manual) 0, Band Neutrophils 0, Nucleated Red Blood Cells 3, Platelet Estimate Adequate, Platelet Morphology Normal, Polychromasia 1 +, Hypochromasia 3+, Anisocytosis 3+, Tear Drop Cells Occasional, Sodium Level 133L, Potassium Level 4.9, Chloride Level 95L, Carbon Dioxide Level 26, Anion Gap 12, Blood Urea Nitrogen 47H, Creatinine 9.4H, Estimat Glomerular Filtration Rate 5.1, Glucose Level 216#H, Calcium Level 8.2L, Total Bilirubin 0.7, Aspartate Amino Transf (AST/SGOT) 28, Alanine Aminotransferase (ALT/SGPT) 20, Alkaline Phosphatase 210H, Total Protein 7.0, Albumin 3.0L, Globulin 4.0, Albumin/Globulin Ratio 0.8L Height (Feet): 5 Height (Inches): 9.00 Weight (Pounds): 240 Bryan Hunter MD Nov 19, 2018 13:07
[2018-11-19] MEDS: Hydromorphone 0.5mg/0.5ml inj IVP PRN (14:04)
--- NOTE | 2018-11-19 15:53 | General Progress Note ---
Assessment/Plan Assessment/Plan # Anemia of chronic disease due to underlying chronic medical issues, multifactorial. 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 Hx of esrd on hd. --> Trend Hgb remains low at 6.5 --> 6.6-->6.1 --> Prior anemia w/u has been reviewed. Ferritin >2000 --> No evidence of hemolysis is noted, peripheral smear has been reviewed. --> Hgb goal >7. Transfuse prn. --> EGD 10/24 completed, appreciate gir ecs --> off heparin sq at this time, is on scds --> bone marrow biopsy that can be done as an outpatient. agree with pcp --> EPOGEN since patient is a Mandaen --> IRON IV since Mandaen and no significant iron overload yet # Anemia of chronic kidney disease. --> Jehovah Witness and does not take any blood products --> on epogen, will continue --> b1, b12, folate as outpatient as well # End-stage renal disease on hemodialysis. Nephro is following, appreciate recs. --> The patient is on hemodialysis due to shortness of breath. --> has to have ferritin >500 especially since JW # Mild hyperkalemia --> now improved, 4.6 --> HD 3x a week # Hypertension. Cardiology is following, appreciate recs. --> stress test pending as per cards, most recent test was negative per Dr. Vinson --> Adjust medications as appropriate. # Diabetes mellitus per primary care physician. --> Cont on insulin --> Cont to monitor BS levels # back pain -- consider pain service eval as required --> opiates as needed, imaging to eval # Left distal tibial oblique fracture of the distal fibular diaphysis --> as per ortho recs : GREATLY APPRECIATE CONSULTATION. Subjective Constitutional: Denies: no symptoms, chills, diaphoresis, fever, malaise, weakness, other HEENT: Denies: no symptoms, eye pain, blurred vision, tearing, double vision, ear pain, ear discharge, nose pain, nose congestion, throat pain, throat swelling, mouth pain, mouth swelling, other Cardiovascular: Denies: no symptoms, chest pain, edema, irregular heart rate, lightheadedness, palpitations, syncope, other Respiratory: Denies: no symptoms, cough, orthopnea, shortness of breath, SOB with excertion, SOB at rest, sputum, stridor, wheezing, other Gastrointestinal/Abdominal: Denies: no symptoms, abdomen distended, abdominal pain, black stools, tarry stools, blood in stool, constipated, diarrhea, difficulty swallowing, nausea, poor appetite, poor fluid intake, rectal bleeding , vomiting, other Genitourinary: Denies: no symptoms, burning, discharge, frequency, flank pain, hematuria, incontinence, pain, urgency, other Neurologic/Psychiatric: Denies: no symptoms, anxiety, depressed, emotional problems, headache, numbness, paresthesia, pre-existing deficit, seizure, tingling, tremors, weakness, other Endocrine: Denies: no symptoms, excessive sweating, flushing, intolerance to cold, intolerance to heat, increased hunger, increased thirst, increased urine, unexplained weight gain, unexplained weight loss, other Hematologic/Lymphatic: Denies: no symptoms, anemia, easy bleeding, easy bruising, other Allergies: Coded Allergies: NO KNOWN ALLERGIES (Unverified Allergy, Unknown, 10/15/15) Subjective 11/19: hd for today, seen by pulm and renal, cards, on sq epo and iv iron Objective Last 24 Hour Vital Signs Date Time Temp Pulse Resp B/P (MAP) Pulse Ox O2 Delivery O2 Flow Rate FiO2 11/19/18 14:34 98.8 11/19/18 13:41 Room Air 11/19/18 13:39 Room Air 11/19/18 12:09 98.8 78 18 146/79 (101) 98 78 11/19/18 09:30 80 147/84 11/19/18 09:00 Room Air 11/19/18 08:00 97.9 80 19 147/84 (105) 98 11/19/18 07:54 81 20 Room Air 21 11/19/18 04:00 99.2 79 22 142/88 (106) 95 11/19/18 00:00 98.5 86 22 157/82 (107) 97 11/18/18 21:00 Room Air 11/18/18 20:43 78 20 Room Air 21 11/18/18 20:00 99.7 81 20 141/69 (93) 95 11/18/18 16:00 98.0 77 19 153/51 (85) 95 Intake and Output 11/18/18 11/19/18 18:59 06:59 Intake Total 360 ml Balance 360 ml Intake Oral 360 ml # Voids 3 2 Laboratory Tests 11/19/18 06:35: White Blood Count 9.3, Red Blood Count 2.51L, Hemoglobin 6.1*L, Hematocrit 20.8L , Mean Corpuscular Volume 83, Mean Corpuscular Hemoglobin 24.4L, Mean Corpuscular Hemoglobin Concent 29.5L, Red Cell Distribution Width 20.3H, Platelet Count 235, Mean Platelet Volume 6.0L, Neutrophils (%) (Auto) , Lymphocytes (%) (Auto) , Monocytes (%) (Auto) , Eosinophils (%) (Auto) , Basophils (%) (Auto) , Differential Total Cells Counted 100, Neutrophils % ( Manual) 67, Lymphocytes % (Manual) 14L, Monocytes % (Manual) 14H, Eosinophils % (Manual) 5H, Basophils % (Manual) 0, Band Neutrophils 0, Nucleated Red Blood Cells 3, Platelet Estimate Adequate, Platelet Morphology Normal, Polychromasia 1 +, Hypochromasia 3+, Anisocytosis 3+, Tear Drop Cells Occasional, Sodium Level 133L, Potassium Level 4.9, Chloride Level 95L, Carbon Dioxide Level 26, Anion Gap 12, Blood Urea Nitrogen 47H, Creatinine 9.4H, Estimat Glomerular Filtration Rate 5.1, Glucose Level 216#H, Calcium Level 8.2L, Total Bilirubin 0.7, Aspartate Amino Transf (AST/SGOT) 28, Alanine Aminotransferase (ALT/SGPT) 20, Alkaline Phosphatase 210H, Total Protein 7.0, Albumin 3.0L, Globulin 4.0, Albumin/Globulin Ratio 0.8L Height (Feet): 5 Height (Inches): 9.00 Weight (Pounds): 240 General Appearance: no apparent distress EENT: TMs normal Neck: supple Cardiovascular: regular rhythm Respiratory/Chest: no respiratory distress Abdomen: no mass Extremities: non-tender Edema: 1+ Leg (L), 1+ Leg (R) Edema: mild edema Neurologic: no motor/sensory deficits Skin: warm/dry Malick Lizama MD Nov 19, 2018 15:53
[2018-11-19 16:00] VITALS: BP 145/89
--- NOTE | 2018-11-19 16:03 | Pulmonology Progress Note ---
Assessment/Plan Assessment/Plan Pulmonary Progress Note Recent Fall HPI Patient appears to have been recently discharged from the hospital Patient has multiple comorbidities including significant anemia Renal failure It's unclear if the patient was at home or at an assisted facility however reports that while going to the restroom she fell injuring her left leg Patient reports that she was laying there for several hours waiting for assistance to arrive Pain is localized to the distal left leg Denies any chest pain denies any back or flank pain Denies any headache No new complaints Allergies: NO KNOWN ALLERGIES Patient History Past Medical History: CKD, HD, CAD, DM, HTN, Blindness, Vertigo, MARTIN All Other Systems: negative except mentioned in HPI Physical Exam Vital Signs Noted Date Time Temp Pulse Resp B/P (MAP) Pulse Ox O2 Delivery O2 Flow Rate FiO2 11/17/18 09:03 98.1 86 20 143/79 98 Room Air 11/17/18 09:40 99 General Appearance: lethargic Head: atraumatic Eyes: bilateral eye other - Blind ENT: other - Large swollen tongue Neck: supple Respiratory: no retraction, no accessory muscle use, crackles - Bilaterally Cardiovascular #1: regular rate, rhythm Gastrointestinal: non tender, soft Musculoskeletal: swelling - Abrasion and tenderness to the left distal tibial fibular region pulses intact distally and proximally pain with any touch Neurologic: alert, responsive Skin: other - As above Impression: complex ankle fracture on left Anemia (Jehova's Witness) Chronic Renal failure on HD CAD DM HTN Blindness Vertigo MARTIN intolerant of CPAP Plan - O2 /BiPAP PRN and at night - Atrovent HHN PRN - Incentive spirometer - [employer] medications - PPX: SCD - IVF Cleared from Pumonary Perspective for planned surgery, suggest BiPAP 11/01 while sedated/sleeping Patient also requires some physical stimuli for arousal Patient has history of renal failure was dispositioned yesterday from the hospital Splinting is performed and the patient requires orthopedic consultation and inpatient care Labs Test 11/17/18 10:31 Sodium Level 135 MMOL/L (136-145) Potassium Level 4.2 MMOL/L (3.5-5.1) Chloride Level 98 MMOL/L (98-107) Carbon Dioxide Level 27 MMOL/L (21-32) Anion Gap 11 mmol/L (5-15) Blood Urea Nitrogen 30 mg/dL (7-18) Creatinine 6.7 MG/DL (0.55-1.30) Estimat Glomerular Filtration Rate 7.6 mL/min (>60) Glucose Level 52 MG/DL (74-106) Calcium Level 9.1 MG/DL (8.5-10.1) Rhythm Strip Diag. Results EP Interpretation: yes Rate: 77 Rhythm: NSR, no PVC's, no ectopy Other X-Ray Diagnostic Results Other X-Ray Diagnostic Results #1: X-Ray ordered: Left tib-fib # of Views/Limited Vs Complete: 2 View Indication: Pain EP Interpretation: Yes Interpretation: no soft tissue swelling, other - Distal tibial fibular fracture displacement soft tissue changes Impression: Other - Acute fracture, distal tibial fibular Electronically Signed by: Magdiel Kilgore, Other X-Ray Diagnostic Results #2: X-Ray ordered: Left ankle # of Views/Limited Vs Complete: 3 View Indication: Pain EP Interpretation: Yes Interpretation: other Impression: Other - Acute fracture displacement tibial, fibular Subjective ROS Limited/Unobtainable: No Allergies: Coded Allergies: NO KNOWN ALLERGIES (Unverified Allergy, Unknown, 10/15/15) Objective Last 24 Hour Vital Signs Date Time Temp Pulse Resp B/P (MAP) Pulse Ox O2 Delivery O2 Flow Rate FiO2 11/19/18 14:34 98.8 11/19/18 13:41 Room Air 11/19/18 13:39 Room Air 11/19/18 12:09 98.8 78 18 146/79 (101) 98 78 11/19/18 09:30 80 147/84 11/19/18 09:00 Room Air 11/19/18 08:00 97.9 80 19 147/84 (105) 98 11/19/18 07:54 81 20 Room Air 21 11/19/18 04:00 99.2 79 22 142/88 (106) 95 11/19/18 00:00 98.5 86 22 157/82 (107) 97 11/18/18 21:00 Room Air 11/18/18 20:43 78 20 Room Air 21 11/18/18 20:00 99.7 81 20 141/69 (93) 95 Intake and Output 11/18/18 11/19/18 18:59 06:59 Intake Total 360 ml Balance 360 ml Intake Oral 360 ml # Voids 3 2 Microbiology Date/Time Source Procedure Growth Status 11/17/18 11:11 Rectum - Final NO CARBAPENEM-RESISTANT ENTEROBACTERI... Complete Laboratory Tests 11/19/18 06:35: White Blood Count 9.3, Red Blood Count 2.51L, Hemoglobin 6.1*L, Hematocrit 20.8L , Mean Corpuscular Volume 83, Mean Corpuscular Hemoglobin 24.4L, Mean Corpuscular Hemoglobin Concent 29.5L, Red Cell Distribution Width 20.3H, Platelet Count 235, Mean Platelet Volume 6.0L, Neutrophils (%) (Auto) , Lymphocytes (%) (Auto) , Monocytes (%) (Auto) , Eosinophils (%) (Auto) , Basophils (%) (Auto) , Differential Total Cells Counted 100, Neutrophils % ( Manual) 67, Lymphocytes % (Manual) 14L, Monocytes % (Manual) 14H, Eosinophils % (Manual) 5H, Basophils % (Manual) 0, Band Neutrophils 0, Nucleated Red Blood Cells 3, Platelet Estimate Adequate, Platelet Morphology Normal, Polychromasia 1 +, Hypochromasia 3+, Anisocytosis 3+, Tear Drop Cells Occasional, Sodium Level 133L, Potassium Level 4.9, Chloride Level 95L, Carbon Dioxide Level 26, Anion Gap 12, Blood Urea Nitrogen 47H, Creatinine 9.4H, Estimat Glomerular Filtration Rate 5.1, Glucose Level 216#H, Calcium Level 8.2L, Total Bilirubin 0.7, Aspartate Amino Transf (AST/SGOT) 28, Alanine Aminotransferase (ALT/SGPT) 20, Alkaline Phosphatase 210H, Total Protein 7.0, Albumin 3.0L, Globulin 4.0, Albumin/Globulin Ratio 0.8L Current Medications Medications (Trade) Dose Ordered Sig/Josi Route PRN Reason Start Time Stop Time Status Last Admin Dose Admin Acetaminophen (Tylenol) 650 mg Q4H PRN ORAL Mild Pain/Temp > 100.5 11/17/18 14:15 12/17/18 14:14 11/17/18 14:42 Acetaminophen/ Hydrocodone Bitart ([place] 10/325) 1 tab Q4H PRN ORAL For Pain 11/17/18 15:15 11/24/18 15:14 11/19/18 01:58 Amlodipine Besylate (Norvasc) 10 mg DAILY ORAL 11/18/18 09:00 12/18/18 08:59 11/19/18 09:30 Atorvastatin Calcium (Lipitor) 10 mg BEDTIME ORAL 11/17/18 21:00 12/17/18 20:59 11/18/18 20:28 Clonidine HCl (Catapres Tab) 0.1 mg Q4H PRN ORAL For High BP 160 syst 11/17/18 15:30 12/17/18 15:29 11/18/18 08:54 Dextrose (Dextrose 50%) 25 ml Q30M PRN IV Hypoglycemia 11/17/18 14:15 12/17/18 14:14 11/18/18 06:07 Dextrose (Dextrose 50%) 50 ml Q30M PRN IV Hypoglycemia 11/17/18 14:15 12/17/18 14:14 Diphenhydramine HCl (Benadryl) 50 mg Q6H PRN ORAL Itching 11/17/18 15:15 12/17/18 15:14 Docusate Sodium (Colace) 100 mg TID ORAL 11/17/18 18:00 12/17/18 17:59 11/19/18 09:30 Epoetin [place] De Jesus (Procrit (for ESRD on dialysis)) 20,000 units SUN-SUN-SUN SUBQ 11/18/18 21:00 12/18/18 20:59 11/18/18 20:29 Gabapentin (Neurontin) 300 mg THREE TIMES A DAY ORAL 11/17/18 18:00 12/17/18 17:59 11/19/18 09:30 Hydromorphone HCl (Dilaudid) 0.5 mg Q6H PRN IVP For Pain 11/17/18 16:15 11/24/18 16:14 11/19/18 14:04 Insulin Aspart (NovoLOG) BEFORE MEALS AND HS SUBQ 11/17/18 16:30 12/17/18 16:29 11/19/18 11:48 Ipratropium [place] (Atrovent) 500 mcg Q4H PRN HHN Shortness of Breath 11/17/18 16:15 11/22/18 16:14 Iron Sucrose 100 mg/Sodium Chloride 60 ml @ 240 mls/hr BEDTIME IV 11/17/18 21:00 11/21/18 21:14 11/18/18 20:29 Lorazepam (Ativan) 1 mg Q6H PRN ORAL For Anxiety 11/18/18 15:30 11/25/18 15:29 Pantoprazole (Protonix) 40 mg BID ORAL 11/17/18 18:00 12/18/18 08:59 11/19/18 09:30 Pyridoxine HCl (Vitamin B6) 50 mg DAILY ORAL 11/18/18 09:00 12/18/18 08:59 11/19/18 09:30 Sitagliptin Phosphate (Januvia) 25 mg ACBREAKFAST ORAL 11/20/18 06:30 12/20/18 06:29 Thiamine HCl (Vitamin B1) 100 mg DAILY ORAL 11/18/18 09:00 12/18/18 08:59 11/19/18 09:30 Zolpidem Tartrate (Ambien) 5 mg HSPRN PRN ORAL Insomnia 11/17/18 14:15 11/24/18 14:14 Jimmy Gay MD Nov 19, 2018 16:03
--- NOTE | 2018-11-19 16:45 | Progress Note ---
DATE: 11/19/2018 SUBJECTIVE: This is a 63-year-old patient with distal fibular fracture. This patient still has confusion, disorganized thought . DIAGNOSIS: Major depressive disorder, rule out generalized anxiety disorder. PLAN: Treat her with Ativan 1 mg every 6 hours p.r.n. anxiety and agitation and Neurontin 300 mg three times a day. Provided with 20 minutes of cognitive behavioral therapy to help identify automatic negative thoughts and help her to convert those automatic negative thoughts to more positive to reduce depression, anxiety, and suicidality. Chart reviewed and discussed with staff. Seen and assessed in her room. Iker Lawrence M.D. DR: DICK JOB#: [id number] CC:
[2018-11-19 20:00] VITALS: BP 139/81
[2018-11-19] MEDS: Iron Sucrose 100 MG in NS 55 ML IV SCH (20:21)
--- NOTE | 2018-11-19 22:00 | Progress Note ---
DATE: 11/19/2018 HISTORY OF PRESENT ILLNESS: The patient has had no issues overnight. She is resting comfortably on the exam bed. Posterior splint to the left leg is intact. ASSESSMENT: Left ankle fracture dislocation. DISCUSSION: At this point, we will try to reach the transfer center again to try to begin the transfer to [facility] for a higher level of care. We will try to touch base with Dr. West in anticipation of transfer. This is an unstable ankle fracture, does need operative intervention, but she is given all medical comorbidities that increase of complication better treated at a tertiary care center. We will try to contact the transfer center as well in anticipation of surgery. Santosh Covington M.D. DR: BRINA JOB#: [id number] CC: JEAN
--- NOTE | 2018-11-19 22:38 | Cardiology Progress Note ---
Assessment/Plan Status: doing well, stable Assessment/Plan Assessment/Plan Status: stable Assessment/Plan Assessment: (1) ESRD (end stage renal disease) on dialysis (2) Morbid obesity (3) Anemia (4) Coronary artery disease (5) Patient is Orthodox (6) Diabetes (7) CHF (8) Bradycardia (9) Anemia of chronic disease (10) Hypertension Plan Maintain HD Cleared to proceed with surgery if needed - plan to transfer to [facility] Continue atorvastatin Continue amlodipine Hold aspirin Subjective Cardiovascular: Reports: no symptoms Respiratory: Reports: no symptoms Gastrointestinal/Abdominal: Reports: no symptoms Genitourinary: Reports: no symptoms Subjective Coverage for [place] No acute events, no complaints at this time, vitals stable, Anemic, no blood given due to jehovah witness, plan to transfer to [facility] Objective Last 24 Hour Vital Signs Date Time Temp Pulse Resp B/P (MAP) Pulse Ox O2 Delivery O2 Flow Rate FiO2 11/19/18 21:00 Room Air 11/19/18 20:00 99.7 80 22 139/81 (100) 93 11/19/18 19:59 86 20 Room Air 21 11/19/18 17:46 98.0 11/19/18 16:00 98.0 76 19 145/89 (107) 96 78 11/19/18 14:34 98.8 11/19/18 13:41 Room Air 11/19/18 13:39 Room Air 11/19/18 12:09 98.8 78 18 146/79 (101) 98 78 11/19/18 09:30 80 147/84 11/19/18 09:00 Room Air 11/19/18 08:00 97.9 80 19 147/84 (105) 98 11/19/18 07:54 81 20 Room Air 21 11/19/18 04:00 99.2 79 22 142/88 (106) 95 11/19/18 00:00 98.5 86 22 157/82 (107) 97 General Appearance: no apparent distress, alert EENT: PERRL/EOMI, normal ENT inspection, TMs normal, pharynx normal Neck: non-tender, normal alignment, supple, normal inspection, no JVD Rhythm: NSR Cardiovascular: normal peripheral pulses, normal rate, regular rhythm Respiratory/Chest: chest wall non-tender, lungs clear, normal breath sounds, no respiratory distress Abdomen: normal bowel sounds, non tender, soft, no organomegaly, no mass Extremities: normal range of motion, non-tender, normal inspection, no calf tenderness Neurologic: back tender pulp drier II-XII grossly normal, no motor/sensory deficits, abnormal gait Intake and Output 11/18/18 11/19/18 19:00 07:00 Intake Total 360 ml Balance 360 ml Intake Oral 360 ml # Voids 3 2 Laboratory Tests Test 11/19/18 06:35 White Blood Count 9.3 K/UL (4.8-10.8) Red Blood Count 2.51 M/UL (4.20-5.40) L Hemoglobin 6.1 G/DL (12.0-16.0) *L Hematocrit 20.8 % (37.0-47.0) L Mean Corpuscular Volume 83 FL (80-99) Mean Corpuscular Hemoglobin 24.4 PG (27.0-31.0) L Mean Corpuscular Hemoglobin Concent 29.5 G/DL (32.0-36.0) L Red Cell Distribution Width 20.3 % (11.6-14.8) H Platelet Count 235 K/UL (150-450) Mean Platelet Volume 6.0 FL (6.5-10.1) L Neutrophils (%) (Auto) % (45.0-75.0) Lymphocytes (%) (Auto) % (20.0-45.0) Monocytes (%) (Auto) % (1.0-10.0) Eosinophils (%) (Auto) % (0.0-3.0) Basophils (%) (Auto) % (0.0-2.0) Differential Total Cells Counted 100 Neutrophils % (Manual) 67 % (45-75) Lymphocytes % (Manual) 14 % (20-45) L Monocytes % (Manual) 14 % (1-10) H Eosinophils % (Manual) 5 % (0-3) H Basophils % (Manual) 0 % (0-2) Band Neutrophils 0 % (0-8) Nucleated Red Blood Cells 3 /100 WBC Platelet Estimate Adequate Platelet Morphology Normal Polychromasia 1+ Hypochromasia 3+ Anisocytosis 3+ Tear Drop Cells Occasional Sodium Level 133 MMOL/L (136-145) L Potassium Level 4.9 MMOL/L (3.5-5.1) Chloride Level 95 MMOL/L (98-107) L Carbon Dioxide Level 26 MMOL/L (21-32) Anion Gap 12 mmol/L (5-15) Blood Urea Nitrogen 47 mg/dL (7-18) H Creatinine 9.4 MG/DL (0.55-1.30) H Estimat Glomerular Filtration Rate 5.1 mL/min (>60) Glucose Level 216 MG/DL (74-106) #H Calcium Level 8.2 MG/DL (8.5-10.1) L Total Bilirubin 0.7 MG/DL (0.2-1.0) Aspartate Amino Transf (AST/SGOT) 28 U/L (15-37) Alanine Aminotransferase (ALT/SGPT) 20 U/L (12-78) Alkaline Phosphatase 210 U/L (46-116) H Total Protein 7.0 G/DL (6.4-8.2) Albumin 3.0 G/DL (3.4-5.0) L Globulin 4.0 g/dL Albumin/Globulin Ratio 0.8 (1.0-2.7) L Microbiology Date/Time Source Procedure Growth Status 11/17/18 11:11 Rectum - Final NO CARBAPENEM-RESISTANT ENTEROBACTERI... Complete Jimmy Cline MD Nov 19, 2018 22:38
--- NOTE | 2018-11-19 23:00 | Consultation ---
DATE OF CONSULTATION: 11/18/2018 ORTHOPEDIC CONSULTATION CONSULTING PHYSICIAN: Santosh Covington M.D. HISTORY OF PRESENT ILLNESS: The patient is a pleasant 63-year-old female, who sustained a right ankle fracture at home after a ground-level mechanical fall. She was brought to the emergency room where she was diagnosed with a bimalleolar ankle fracture. Orthopedic consultation was obtained for further care and recommendations. PAST MEDICAL HISTORY: Reviewed per intake chart. PAST SURGICAL HISTORY: Reviewed per intake chart. MEDICATIONS: Reviewed per intake chart. PHYSICAL EXAMINATION: GENERAL: The patient is morbidly obese. She is resting comfortably on exam bed. She is visually impaired. VITAL SIGNS: Afebrile with stable vital signs. EXTREMITIES: Left leg appears to be in a posterior splint. DIAGNOSTIC DATA: Imaging studies of left ankle shows possible trimalleolar ankle fracture and dislocation. DISCUSSION: At this point, the patient is in care of operative fixation with open reduction and internal fixation of this unstable ankle fracture. Unfortunately, given her weight and medical comorbidities, health issues better addressed in a tertiary care center. We will try to attempt to call Dr. Krueger or Dr. Lee at [facility] for appropriate transfer. In the meantime, they can continue appropriate workup in anticipation of transfer and surgery. Santosh Covington M.D. DR: KARIE JOB#: [id number] CC:
[2018-11-20] VITALS: BP 168/78
[2018-11-20] MEDS: Hydromorphone 0.5mg/0.5ml inj IVP PRN (01:45)
[2018-11-20 04:00] VITALS: BP 157/84
[2018-11-20] MEDS: NovoLOG Insulin Flexpen SUBQ SCH ×3 (05:58→16:58)
[2018-11-20] MEDS ORDERED: sitaGLIPtin 25mg tab ORAL SCH (06:30)
--- NOTE | 2018-11-20 07:01 | General Progress Note ---
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 ICD Codes: E11.49 - Type 2 diabetes mellitus with other diabetic neurological complication SNOMED: 53050461, 976225994 (2) ESRD (end stage renal disease) on dialysis ICD Codes: N18.6 - End stage renal disease; Z99.2 - Dependence on renal dialysis SNOMED: 946052824 (3) Tibia/fibula fracture ICD Codes: S82.209A - Unspecified fracture of shaft of unspecified tibia, initial encounter for closed fracture; S82.409A - Unspecified fracture of shaft of unspecified fibula, initial encounter for closed fracture SNOMED: 558276428 Assessment/Plan add Januvia 25 mg daily add Levemir 8 units daily continue NISS ac / hs hypoglycemia protocol Subjective Allergies: Coded Allergies: NO KNOWN ALLERGIES (Unverified Allergy, Unknown, 10/15/15) All Systems: reviewed and negative except above Subjective events noted Objective Last 24 Hour Vital Signs Date Time Temp Pulse Resp B/P (MAP) Pulse Ox O2 Delivery O2 Flow Rate FiO2 11/20/18 04:00 98.9 80 20 157/84 (108) 93 11/20/18 00:25 168/78 11/20/18 00:00 99.7 82 20 168/78 (108) 100 11/19/18 21:00 Room Air 11/19/18 20:00 99.7 80 22 139/81 (100) 93 11/19/18 19:59 86 20 Room Air 21 11/19/18 17:46 98.0 11/19/18 16:00 98.0 76 19 145/89 (107) 96 78 11/19/18 14:34 98.8 11/19/18 13:41 Room Air 11/19/18 13:39 Room Air 11/19/18 12:09 98.8 78 18 146/79 (101) 98 78 11/19/18 09:30 80 147/84 11/19/18 09:00 Room Air 11/19/18 08:00 97.9 80 19 147/84 (105) 98 11/19/18 07:54 81 20 Room Air 21 Intake and Output 11/19/18 11/20/18 19:00 07:00 Intake Total 560 ml Output Total 1000 ml Balance -440 ml Other 560 ml Output Hemodialysis UF 1000 ml # Voids 1 Height (Feet): 5 Height (Inches): 9.00 Weight (Pounds): 354 General Appearance: no apparent distress Neck: normal alignment Cardiovascular: normal rate Respiratory/Chest: lungs clear Abdomen: normal bowel sounds Objective Current Medications Medications (Trade) Dose Ordered Sig/Josi Route PRN Reason Start Time Stop Time Status Last Admin Dose Admin Acetaminophen (Tylenol) 650 mg Q4H PRN ORAL Mild Pain/Temp > 100.5 11/17/18 14:15 12/17/18 14:14 11/17/18 14:42 Acetaminophen/ Hydrocodone Bitart ([place] 10/325) 1 tab Q4H PRN ORAL For Pain 11/17/18 15:15 11/24/18 15:14 11/19/18 23:17 Amlodipine Besylate (Norvasc) 10 mg DAILY ORAL 11/18/18 09:00 12/18/18 08:59 11/19/18 09:30 Atorvastatin Calcium (Lipitor) 10 mg BEDTIME ORAL 11/17/18 21:00 12/17/18 20:59 11/19/18 20:18 Clonidine HCl (Catapres Tab) 0.1 mg Q4H PRN ORAL For High BP 160 syst 11/17/18 15:30 12/17/18 15:29 11/20/18 00:25 Dextrose (Dextrose 50%) 25 ml Q30M PRN IV Hypoglycemia 11/17/18 14:15 12/17/18 14:14 11/18/18 06:07 Dextrose (Dextrose 50%) 50 ml Q30M PRN IV Hypoglycemia 11/17/18 14:15 12/17/18 14:14 Diphenhydramine HCl (Benadryl) 50 mg Q6H PRN ORAL Itching 11/17/18 15:15 12/17/18 15:14 Docusate Sodium (Colace) 100 mg TID ORAL 11/17/18 18:00 12/17/18 17:59 11/19/18 17:10 Epoetin Jose De Jesus (Procrit (for ESRD on dialysis)) 20,000 units MON-WED-SUN SUBQ 11/18/18 21:00 12/18/18 20:59 11/18/18 20:29 Gabapentin (Neurontin) 300 mg THREE TIMES A DAY ORAL 11/17/18 18:00 12/17/18 17:59 11/19/18 17:10 Hydromorphone HCl (Dilaudid) 0.5 mg Q6H PRN IVP For Pain 11/17/18 16:15 11/24/18 16:14 11/20/18 01:45 Insulin Aspart (NovoLOG) BEFORE MEALS AND HS SUBQ 11/17/18 16:30 12/17/18 16:29 11/20/18 05:58 Ipratropium [place] (Atrovent) 500 mcg Q4H PRN HHN Shortness of Breath 11/17/18 16:15 11/22/18 16:14 Iron Sucrose 100 mg/Sodium Chloride 60 ml @ 240 mls/hr BEDTIME IV 11/17/18 21:00 11/21/18 21:14 11/19/18 20:21 Lorazepam (Ativan) 1 mg Q6H PRN ORAL For Anxiety 11/18/18 15:30 11/25/18 15:29 Pantoprazole (Protonix) 40 mg BID ORAL 11/17/18 18:00 12/18/18 08:59 11/19/18 17:10 Pyridoxine HCl (Vitamin B6) 50 mg DAILY ORAL 11/18/18 09:00 12/18/18 08:59 11/19/18 09:30 Sitagliptin Phosphate (Januvia) 25 mg ACBREAKFAST ORAL 11/20/18 06:30 12/20/18 06:29 11/20/18 05:57 Thiamine HCl (Vitamin B1) 100 mg DAILY ORAL 11/18/18 09:00 12/18/18 08:59 11/19/18 09:30 Zolpidem Tartrate (Ambien) 5 mg HSPRN PRN ORAL Insomnia 11/17/18 14:15 11/24/18 14:14 Item Value Date Time Bedside Blood Glucose 214 mg/dl H 11/20/18 0629 Bedside Blood Glucose 248 mg/dl H 11/19/18 2100 Bedside Blood Glucose 194 mg/dl H 11/19/18 1711 Bedside Blood Glucose 231 mg/dl H 11/19/18 1148 Bedside Blood Glucose 234 mg/dl H 11/19/18 0630 Franko Rogel MD Nov 20, 2018 07:01
[2018-11-20 08:00] VITALS: BP 140/68
[2018-11-20 08:14] LABS: HEMATOCRIT 21.5 % (37.0-47.0); MEAN CORPUSCULAR VOLUME 84 FL (80-99); PLATELET COUNT 258 K/UL (150-450); RED BLOOD COUNT 2.56 M/UL (4.20-5.40); RED CELL DISTRIBUTION WIDTH 20.6 % (11.6-14.8); WHITE BLOOD COUNT 9.8 K/UL (4.8-10.8)
[2018-11-20 08:19] LABS: HEMOGLOBIN 6.1 G/DL (12.0-16.0)
[2018-11-20 08:43] LABS: ALANINE AMINOTRANSFERASE 19 U/L (12-78); ALBUMIN/GLOBULIN RATIO 0.6 (1.0-2.7); ALKALINE PHOSPHATASE 234 U/L (46-116); ANION GAP 12 mmol/L (5-15); ASPARTATE AMINO TRANSFERASE 25 U/L (15-37); BILIRUBIN,TOTAL 0.7 MG/DL (0.2-1.0); BLOOD UREA NITROGEN 40 mg/dL (7-18); CALCIUM 8.4 MG/DL (8.5-10.1); CARBON DIOXIDE 27 MMOL/L (21-32); CHLORIDE 94 MMOL/L (98-107); CREATININE 8.2 MG/DL (0.55-1.30); POTASSIUM 4.4 MMOL/L (3.5-5.1); SODIUM 133 MMOL/L (136-145)
[2018-11-20] MEDS: Pyridoxine 50mg tab ORAL SCH (08:54)
[2018-11-20] MEDS: Thiamine 100mg tab ORAL SCH (08:54)
[2018-11-20] MEDS: Docusate 100mg cap ORAL SCH ×3 (08:54→18:34)
[2018-11-20] MEDS ORDERED: Levemir Flexpen SUBQ SCH (09:00)
[2018-11-20 12:00] VITALS: BP 140/72
--- NOTE | 2018-11-20 12:09 | Nephrology Progress Note ---
Assessment/Plan Problem List: (1) End stage renal disease on dialysis (2) Blindness of both eyes (3) Morbid obesity (4) Anemia (5) Patient is Sabianist (6) Tibia/fibula fracture Assessment Complex ankle fracture as of 11/16/18 when discharged (1) ESRD (end stage renal disease) on dialysis (2) Morbid obesity (3) Anemia Assessment: of CKD (4) Coronary artery disease (5) Patient is Sabianist ESRD on HD PermCath placement. left Anemia of CKD DM2 b/l eye blindness CHF (recent exacerbation 09/2018) bradycardia 2ry hyperparathyroidism CAD s/p stent AOCD s/p AVG w recent rupture HTN morbid obesity Plan HD 11/19/18 Tolerating well. per consultants due transfer to higher level care Subjective ROS Limited/Unobtainable: No Constitutional: Reports: malaise Objective Objective Last 24 Hour Vital Signs Date Time Temp Pulse Resp B/P (MAP) Pulse Ox O2 Delivery O2 Flow Rate FiO2 11/20/18 09:00 Room Air 11/20/18 08:53 97 145/68 11/20/18 08:00 98.0 97 19 140/68 (92) 97 97 11/20/18 04:00 98.9 80 20 157/84 (108) 93 11/20/18 00:25 168/78 11/20/18 00:00 99.7 82 20 168/78 (108) 100 11/19/18 21:00 Room Air 11/19/18 20:00 99.7 80 22 139/81 (100) 93 11/19/18 19:59 86 20 Room Air 21 11/19/18 17:46 98.0 11/19/18 16:00 98.0 76 19 145/89 (107) 96 78 11/19/18 14:34 98.8 11/19/18 13:41 Room Air 11/19/18 13:39 Room Air 11/19/18 12:09 98.8 78 18 146/79 (101) 98 78 Intake and Output 11/19/18 11/20/18 19:00 07:00 Intake Total 560 ml Output Total 1000 ml Balance -440 ml Other 560 ml Output Hemodialysis UF 1000 ml # Voids 1 Current Medications Medications (Trade) Dose Ordered Sig/Josi Route PRN Reason Start Time Stop Time Status Last Admin Dose Admin Acetaminophen (Tylenol) 650 mg Q4H PRN ORAL Mild Pain/Temp > 100.5 11/17/18 14:15 12/17/18 14:14 11/17/18 14:42 Acetaminophen/ Hydrocodone Bitart ([place] 10/325) 1 tab Q4H PRN ORAL For Pain 11/17/18 15:15 11/24/18 15:14 11/19/18 23:17 Amlodipine Besylate (Norvasc) 10 mg DAILY ORAL 11/18/18 09:00 12/18/18 08:59 11/20/18 08:53 Atorvastatin Calcium (Lipitor) 10 mg BEDTIME ORAL 11/17/18 21:00 12/17/18 20:59 11/19/18 20:18 Clonidine HCl (Catapres Tab) 0.1 mg Q4H PRN ORAL For High BP 160 syst 11/17/18 15:30 12/17/18 15:29 11/20/18 00:25 Dextrose (Dextrose 50%) 25 ml Q30M PRN IV Hypoglycemia 11/17/18 14:15 12/17/18 14:14 11/18/18 06:07 Dextrose (Dextrose 50%) 50 ml Q30M PRN IV Hypoglycemia 11/17/18 14:15 12/17/18 14:14 Diphenhydramine HCl (Benadryl) 50 mg Q6H PRN ORAL Itching 11/17/18 15:15 12/17/18 15:14 Docusate Sodium (Colace) 100 mg TID ORAL 11/17/18 18:00 12/17/18 17:59 11/20/18 08:54 Epoetin Jose De Jesus (Procrit (for ESRD on dialysis)) 20,000 units SUN-WED-SUN SUBQ 11/18/18 21:00 12/18/18 20:59 11/18/18 20:29 Gabapentin (Neurontin) 300 mg THREE TIMES A DAY ORAL 11/17/18 18:00 12/17/18 17:59 11/20/18 08:54 Hydromorphone HCl (Dilaudid) 0.5 mg Q6H PRN IVP For Pain 11/17/18 16:15 11/24/18 16:14 11/20/18 01:45 Insulin Aspart (NovoLOG) BEFORE MEALS AND HS SUBQ 11/17/18 16:30 12/17/18 16:29 11/20/18 11:46 Insulin Detemir (Levemir) 8 units DAILY SUBQ 11/20/18 09:00 12/20/18 08:59 11/20/18 09:00 Ipratropium [place] (Atrovent) 500 mcg Q4H PRN HHN Shortness of Breath 11/17/18 16:15 11/22/18 16:14 Iron Sucrose 100 mg/Sodium Chloride 60 ml @ 240 mls/hr BEDTIME IV 11/17/18 21:00 11/21/18 21:14 11/19/18 20:21 Lorazepam (Ativan) 1 mg Q6H PRN ORAL For Anxiety 11/18/18 15:30 11/25/18 15:29 Pantoprazole (Protonix) 40 mg BID ORAL 11/17/18 18:00 12/18/18 08:59 11/20/18 08:54 Pyridoxine HCl (Vitamin B6) 50 mg DAILY ORAL 11/18/18 09:00 12/18/18 08:59 11/20/18 08:54 Sitagliptin Phosphate (Januvia) 25 mg ACBREAKFAST ORAL 11/20/18 06:30 12/20/18 06:29 11/20/18 05:57 Thiamine HCl (Vitamin B1) 100 mg DAILY ORAL 11/18/18 09:00 12/18/18 08:59 11/20/18 08:54 Zolpidem Tartrate (Ambien) 5 mg HSPRN PRN ORAL Insomnia 11/17/18 14:15 11/24/18 14:14 Laboratory Tests 11/20/18 06:30: White Blood Count 9.8, Red Blood Count 2.56L, Hemoglobin 6.1*L, Hematocrit 21.5L , Mean Corpuscular Volume 84, Mean Corpuscular Hemoglobin 24.0L, Mean Corpuscular Hemoglobin Concent 28.6L, Red Cell Distribution Width 20.6H, Platelet Count 258, Mean Platelet Volume 5.6L, Neutrophils (%) (Auto) , Lymphocytes (%) (Auto) , Monocytes (%) (Auto) , Eosinophils (%) (Auto) , Basophils (%) (Auto) , Differential Total Cells Counted 100, Neutrophils % ( Manual) 72, Lymphocytes % (Manual) 12L, Monocytes % (Manual) 14H, Eosinophils % (Manual) 2, Basophils % (Manual) 0, Band Neutrophils 0, Platelet Estimate Adequate, Platelet Morphology Normal, Hypochromasia 1+, Anisocytosis 2+, Sodium Level 133L, Potassium Level 4.4, Chloride Level 94L, Carbon Dioxide Level 27, Anion Gap 12, Blood Urea Nitrogen 40H, Creatinine 8.2H, Estimat Glomerular Filtration Rate 6.1, Glucose Level 199H, Calcium Level 8.4L, Phosphorus Level 4.9, Total Bilirubin 0.7, Aspartate Amino Transf (AST/SGOT) 25, Alanine Aminotransferase (ALT/SGPT) 19, Alkaline Phosphatase 234H, Total Protein 7.9, Albumin 3.0L, Globulin 4.9, Albumin/Globulin Ratio 0.6L Height (Feet): 5 Height (Inches): 9.00 Weight (Pounds): 354 General Appearance: no apparent distress Cardiovascular: tachycardia Respiratory/Chest: decreased breath sounds Abdomen: other - obese Objective no change Bryan Hunter MD Nov 20, 2018 12:09
--- NOTE | 2018-11-20 12:19 | Cardiac Electrophysiology PN ---
Assessment/Plan Assessment/Plan 1. Hypertension. On Norvasc 10 mg daily and HD 2. Bradycardia. Resolved off Coreg 3. Nonsustained ventricular tachycardia. No Syncope or sustained VT Nuclear stress test at [facility] on 10/25/2018 , no evidence of ischemia. 4. Hyperlipidemia. 5. History of positive blood cultures and right toe blisters, status post surgery by podiatry 6. Diabetes. 7. Congestive heart failure with diastolic dysfunction with an ejection fraction 55%. 8. ESRD on HD 9. Left fibula Fx. Has external immobilizer. Awaiting transfer to [facility] for Dr West to do the surgery. No further cardiac testing necessary. OK to proceed if surgically necessary at high risk 10. Severe anemia hb 6.1, refusing transfusion. Is Jahovah Witness DW RN Subjective Subjective Awaiting transfer to [facility] for leg fracture.Had HD yesterday Objective Last 24 Hour Vital Signs Date Time Temp Pulse Resp B/P (MAP) Pulse Ox O2 Delivery O2 Flow Rate FiO2 11/20/18 09:00 Room Air 11/20/18 08:53 97 145/68 11/20/18 08:00 98.0 97 19 140/68 (92) 97 97 11/20/18 04:00 98.9 80 20 157/84 (108) 93 11/20/18 00:25 168/78 11/20/18 00:00 99.7 82 20 168/78 (108) 100 11/19/18 21:00 Room Air 11/19/18 20:00 99.7 80 22 139/81 (100) 93 11/19/18 19:59 86 20 Room Air 21 11/19/18 17:46 98.0 11/19/18 16:00 98.0 76 19 145/89 (107) 96 78 11/19/18 14:34 98.8 11/19/18 13:41 Room Air 11/19/18 13:39 Room Air Intake and Output 11/19/18 11/20/18 19:00 07:00 Intake Total 560 ml Output Total 1000 ml Balance -440 ml Other 560 ml Output Hemodialysis UF 1000 ml # Voids 1 Laboratory Tests Test 11/20/18 06:30 White Blood Count 9.8 K/UL (4.8-10.8) Red Blood Count 2.56 M/UL (4.20-5.40) L Hemoglobin 6.1 G/DL (12.0-16.0) *L Hematocrit 21.5 % (37.0-47.0) L Mean Corpuscular Volume 84 FL (80-99) Mean Corpuscular Hemoglobin 24.0 PG (27.0-31.0) L Mean Corpuscular Hemoglobin Concent 28.6 G/DL (32.0-36.0) L Red Cell Distribution Width 20.6 % (11.6-14.8) H Platelet Count 258 K/UL (150-450) Mean Platelet Volume 5.6 FL (6.5-10.1) L Neutrophils (%) (Auto) % (45.0-75.0) Lymphocytes (%) (Auto) % (20.0-45.0) Monocytes (%) (Auto) % (1.0-10.0) Eosinophils (%) (Auto) % (0.0-3.0) Basophils (%) (Auto) % (0.0-2.0) Differential Total Cells Counted 100 Neutrophils % (Manual) 72 % (45-75) Lymphocytes % (Manual) 12 % (20-45) L Monocytes % (Manual) 14 % (1-10) H Eosinophils % (Manual) 2 % (0-3) Basophils % (Manual) 0 % (0-2) Band Neutrophils 0 % (0-8) Platelet Estimate Adequate Platelet Morphology Normal Hypochromasia 1+ Anisocytosis 2+ Sodium Level 133 MMOL/L (136-145) L Potassium Level 4.4 MMOL/L (3.5-5.1) Chloride Level 94 MMOL/L (98-107) L Carbon Dioxide Level 27 MMOL/L (21-32) Anion Gap 12 mmol/L (5-15) Blood Urea Nitrogen 40 mg/dL (7-18) H Creatinine 8.2 MG/DL (0.55-1.30) H Estimat Glomerular Filtration Rate 6.1 mL/min (>60) Glucose Level 199 MG/DL (74-106) H Calcium Level 8.4 MG/DL (8.5-10.1) L Phosphorus Level 4.9 MG/DL (2.5-4.9) Total Bilirubin 0.7 MG/DL (0.2-1.0) Aspartate Amino Transf (AST/SGOT) 25 U/L (15-37) Alanine Aminotransferase (ALT/SGPT) 19 U/L (12-78) Alkaline Phosphatase 234 U/L (46-116) H Total Protein 7.9 G/DL (6.4-8.2) Albumin 3.0 G/DL (3.4-5.0) L Globulin 4.9 g/dL Albumin/Globulin Ratio 0.6 (1.0-2.7) L Objective General Appearance: no apparent distress, alert HEENT: no JVD Rhythm: NSR Cardiovascular: normal peripheral pulses, normal rate, regular rhythm Respiratory/Chest: chest wall non-tender, lungs clear, normal breath sounds, no respiratory distress Abdomen: normal bowel sounds, non tender, soft, no organomegaly, no mass Extremities: No edema. 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
[2018-11-20 15:44] VITALS: BP 134/71
[2018-11-20] MEDS: HYDROcodone/Acetamin 10/325 tab ORAL PRN (15:58)
--- NOTE | 2018-11-20 16:23 | Pulmonology Progress Note ---
Assessment/Plan Assessment/Plan Pulmonary Progress Note Recent Fall HPI Patient appears to have been recently discharged from the hospital Patient has multiple comorbidities including significant anemia Renal failure It's unclear if the patient was at home or at an assisted facility however reports that while going to the restroom she fell injuring her left leg Patient reports that she was laying there for several hours waiting for assistance to arrive Pain is localized to the distal left leg Denies any chest pain denies any back or flank pain Denies any headache No new complaints Allergies: NO KNOWN ALLERGIES Patient History Past Medical History: CKD, HD, CAD, DM, HTN, Blindness, Vertigo, MARTIN All Other Systems: negative except mentioned in HPI Physical Exam Vital Signs Noted Date Time Temp Pulse Resp B/P (MAP) Pulse Ox O2 Delivery O2 Flow Rate FiO2 11/17/18 09:03 98.1 86 20 143/79 98 Room Air 11/17/18 09:40 99 General Appearance: lethargic Head: atraumatic Eyes: bilateral eye other - Blind ENT: other - Large swollen tongue Neck: supple Respiratory: no retraction, no accessory muscle use, crackles - Bilaterally Cardiovascular #1: regular rate, rhythm Gastrointestinal: non tender, soft Musculoskeletal: swelling - Abrasion and tenderness to the left distal tibial fibular region pulses intact distally and proximally pain with any touch Neurologic: alert, responsive Skin: other - As above Impression: complex ankle fracture on left Anemia (Jehova's Witness) Chronic Renal failure on HD CAD DM HTN Blindness Vertigo MARTIN intolerant of CPAP Plan - O2 /BiPAP PRN and at night - Atrovent HHN PRN - Incentive spirometer - ASSISTED LIVING NURSING DIRECTOR medications - PPX: SCD - IVF Cleared from Pumonary Perspective for planned surgery, suggest BiPAP 11/01 while sedated/sleeping Patient also requires some physical stimuli for arousal Patient has history of renal failure was dispositioned yesterday from the hospital Splinting is performed and the patient requires orthopedic consultation and inpatient care Labs Test 11/17/18 10:31 Sodium Level 135 MMOL/L (136-145) Potassium Level 4.2 MMOL/L (3.5-5.1) Chloride Level 98 MMOL/L (98-107) Carbon Dioxide Level 27 MMOL/L (21-32) Anion Gap 11 mmol/L (5-15) Blood Urea Nitrogen 30 mg/dL (7-18) Creatinine 6.7 MG/DL (0.55-1.30) Estimat Glomerular Filtration Rate 7.6 mL/min (>60) Glucose Level 52 MG/DL (74-106) Calcium Level 9.1 MG/DL (8.5-10.1) Rhythm Strip Diag. Results EP Interpretation: yes Rate: 77 Rhythm: NSR, no PVC's, no ectopy Other X-Ray Diagnostic Results Other X-Ray Diagnostic Results #1: X-Ray ordered: Left tib-fib # of Views/Limited Vs Complete: 2 View Indication: Pain EP Interpretation: Yes Interpretation: no soft tissue swelling, other - Distal tibial fibular fracture displacement soft tissue changes Impression: Other - Acute fracture, distal tibial fibular Electronically Signed by: Magdiel Kilgore, Other X-Ray Diagnostic Results #2: X-Ray ordered: Left ankle # of Views/Limited Vs Complete: 3 View Indication: Pain EP Interpretation: Yes Interpretation: other Impression: Other - Acute fracture displacement tibial, fibular Subjective ROS Limited/Unobtainable: No Allergies: Coded Allergies: NO KNOWN ALLERGIES (Unverified Allergy, Unknown, 10/15/15) Objective Last 24 Hour Vital Signs Date Time Temp Pulse Resp B/P (MAP) Pulse Ox O2 Delivery O2 Flow Rate FiO2 11/20/18 15:44 98.9 83 19 134/71 (92) 98 83 11/20/18 12:00 98.1 89 19 140/72 (94) 98 11/20/18 09:00 Room Air 11/20/18 08:53 97 145/68 11/20/18 08:00 98.0 97 19 140/68 (92) 97 97 11/20/18 04:00 98.9 80 20 157/84 (108) 93 11/20/18 00:25 168/78 11/20/18 00:00 99.7 82 20 168/78 (108) 100 11/19/18 21:00 Room Air 11/19/18 20:00 99.7 80 22 139/81 (100) 93 11/19/18 19:59 86 20 Room Air 21 11/19/18 17:46 98.0 Intake and Output 11/19/18 11/20/18 19:00 07:00 Intake Total 560 ml Output Total 1000 ml Balance -440 ml Other 560 ml Output Hemodialysis UF 1000 ml # Voids 1 Laboratory Tests 11/20/18 06:30: White Blood Count 9.8, Red Blood Count 2.56L, Hemoglobin 6.1*L, Hematocrit 21.5L , Mean Corpuscular Volume 84, Mean Corpuscular Hemoglobin 24.0L, Mean Corpuscular Hemoglobin Concent 28.6L, Red Cell Distribution Width 20.6H, Platelet Count 258, Mean Platelet Volume 5.6L, Neutrophils (%) (Auto) , Lymphocytes (%) (Auto) , Monocytes (%) (Auto) , Eosinophils (%) (Auto) , Basophils (%) (Auto) , Differential Total Cells Counted 100, Neutrophils % ( Manual) 72, Lymphocytes % (Manual) 12L, Monocytes % (Manual) 14H, Eosinophils % (Manual) 2, Basophils % (Manual) 0, Band Neutrophils 0, Platelet Estimate Adequate, Platelet Morphology Normal, Hypochromasia 1+, Anisocytosis 2+, Sodium Level 133L, Potassium Level 4.4, Chloride Level 94L, Carbon Dioxide Level 27, Anion Gap 12, Blood Urea Nitrogen 40H, Creatinine 8.2H, Estimat Glomerular Filtration Rate 6.1, Glucose Level 199H, Calcium Level 8.4L, Phosphorus Level 4.9, Total Bilirubin 0.7, Aspartate Amino Transf (AST/SGOT) 25, Alanine Aminotransferase (ALT/SGPT) 19, Alkaline Phosphatase 234H, Total Protein 7.9, Albumin 3.0L, Globulin 4.9, Albumin/Globulin Ratio 0.6L Current Medications Medications (Trade) Dose Ordered Sig/Josi Route PRN Reason Start Time Stop Time Status Last Admin Dose Admin Acetaminophen (Tylenol) 650 mg Q4H PRN ORAL Mild Pain/Temp > 100.5 11/17/18 14:15 12/17/18 14:14 11/17/18 14:42 Acetaminophen/ Hydrocodone Bitart ([place] 10/325) 1 tab Q4H PRN ORAL For Pain 11/17/18 15:15 11/24/18 15:14 11/20/18 15:58 Amlodipine Besylate (Norvasc) 10 mg DAILY ORAL 11/18/18 09:00 12/18/18 08:59 11/20/18 08:53 Atorvastatin Calcium (Lipitor) 10 mg BEDTIME ORAL 11/17/18 21:00 12/17/18 20:59 11/19/18 20:18 Clonidine HCl (Catapres Tab) 0.1 mg Q4H PRN ORAL For High BP 160 syst 11/17/18 15:30 12/17/18 15:29 11/20/18 00:25 Dextrose (Dextrose 50%) 25 ml Q30M PRN IV Hypoglycemia 11/17/18 14:15 12/17/18 14:14 11/18/18 06:07 Dextrose (Dextrose 50%) 50 ml Q30M PRN IV Hypoglycemia 11/17/18 14:15 12/17/18 14:14 Diphenhydramine HCl (Benadryl) 50 mg Q6H PRN ORAL Itching 11/17/18 15:15 12/17/18 15:14 11/20/18 15:53 Docusate Sodium (Colace) 100 mg TID ORAL 11/17/18 18:00 12/17/18 17:59 11/20/18 13:46 Epoetin Jose De Jesus (Procrit (for ESRD on dialysis)) 20,000 units SUN-SUN-SUN SUBQ 11/18/18 21:00 12/18/18 20:59 11/18/18 20:29 Gabapentin (Neurontin) 300 mg THREE TIMES A DAY ORAL 11/17/18 18:00 12/17/18 17:59 11/20/18 13:46 Hydromorphone HCl (Dilaudid) 0.5 mg Q6H PRN IVP For Pain 11/17/18 16:15 11/24/18 16:14 11/20/18 01:45 Insulin Aspart (NovoLOG) BEFORE MEALS AND HS SUBQ 11/17/18 16:30 12/17/18 16:29 11/20/18 11:46 Insulin Detemir (Levemir) 8 units DAILY SUBQ 11/20/18 09:00 12/20/18 08:59 11/20/18 09:00 Ipratropium [place] (Atrovent) 500 mcg Q4H PRN HHN Shortness of Breath 11/17/18 16:15 11/22/18 16:14 Iron Sucrose 100 mg/Sodium Chloride 60 ml @ 240 mls/hr BEDTIME IV 11/17/18 21:00 11/21/18 21:14 11/19/18 20:21 Lorazepam (Ativan) 1 mg Q6H PRN ORAL For Anxiety 11/18/18 15:30 11/25/18 15:29 Pantoprazole (Protonix) 40 mg BID ORAL 11/17/18 18:00 12/18/18 08:59 11/20/18 08:54 Pyridoxine HCl (Vitamin B6) 50 mg DAILY ORAL 11/18/18 09:00 12/18/18 08:59 11/20/18 08:54 Sitagliptin Phosphate (Januvia) 25 mg ACBREAKFAST ORAL 11/20/18 06:30 12/20/18 06:29 11/20/18 05:57 Thiamine HCl (Vitamin B1) 100 mg DAILY ORAL 11/18/18 09:00 12/18/18 08:59 11/20/18 08:54 Zolpidem Tartrate (Ambien) 5 mg HSPRN PRN ORAL Insomnia 11/17/18 14:15 11/24/18 14:14 Jimmy Gay MD Nov 20, 2018 16:23
--- NOTE | 2018-11-20 16:52 | General Progress Note ---
Assessment/Plan Status: stable Assessment/Plan # Anemia of chronic disease due to underlying chronic medical issues, multifactorial. 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 Hx of esrd on hd. --> Trend Hgb remains low at 6.5 --> 6.6-->6.1 --> Prior anemia w/u has been reviewed. Ferritin >2000 --> No evidence of hemolysis is noted, peripheral smear has been reviewed. --> Hgb goal >7. Transfuse prn. --> EGD 10/24 completed, appreciate gir ecs --> off heparin sq at this time, is on scds --> bone marrow biopsy that can be done as an outpatient. agree with pcp --> EPOGEN since patient is a Restorationism --> IRON IV since Restorationism and no significant iron overload yet # Anemia of chronic kidney disease. --> Jehovah Witness and does not take any blood products --> on epogen, will continue --> b1, b12, folate as outpatient as well # End-stage renal disease on hemodialysis. Nephro is following, appreciate recs. --> The patient is on hemodialysis due to shortness of breath. --> has to have ferritin >500 especially since JW # Mild hyperkalemia --> now improved, 4.6 --> HD 3x a week # Hypertension. Cardiology is following, appreciate recs. --> stress test pending as per cards, most recent test was negative per Dr. Vinson --> Adjust medications as appropriate. # Diabetes mellitus per primary care physician. --> Cont on insulin --> Cont to monitor BS levels # back pain -- consider pain service eval as required --> opiates as needed, imaging to eval # Left distal tibial oblique fracture of the distal fibular diaphysis --> as per ortho recs : GREATLY APPRECIATE CONSULTATION. Subjective Date patient seen: Nov 20, 2018 Hematologic/Lymphatic: Reports: anemia Allergies: Coded Allergies: NO KNOWN ALLERGIES (Unverified Allergy, Unknown, 10/15/15) All Systems: reviewed and negative except above Subjective 11/19: hd for today, seen by pulm and renal, cards, on sq epo and iv iron. 11/20: Pt awake and alert. Awaiting transfer to [facility] for leg fracture. VS stable. Objective Last 24 Hour Vital Signs Date Time Temp Pulse Resp B/P (MAP) Pulse Ox O2 Delivery O2 Flow Rate FiO2 11/20/18 16:28 98.9 11/20/18 15:44 98.9 83 19 134/71 (92) 98 83 11/20/18 12:00 98.1 89 19 140/72 (94) 98 11/20/18 09:00 Room Air 11/20/18 08:53 97 145/68 11/20/18 08:00 98.0 97 19 140/68 (92) 97 97 11/20/18 04:00 98.9 80 20 157/84 (108) 93 11/20/18 00:25 168/78 11/20/18 00:00 99.7 82 20 168/78 (108) 100 11/19/18 21:00 Room Air 11/19/18 20:00 99.7 80 22 139/81 (100) 93 11/19/18 19:59 86 20 Room Air 21 Intake and Output 11/19/18 11/20/18 19:00 07:00 Intake Total 560 ml Output Total 1000 ml Balance -440 ml Other 560 ml Output Hemodialysis UF 1000 ml # Voids 1 Laboratory Tests 11/20/18 06:30: White Blood Count 9.8, Red Blood Count 2.56L, Hemoglobin 6.1*L, Hematocrit 21.5L , Mean Corpuscular Volume 84, Mean Corpuscular Hemoglobin 24.0L, Mean Corpuscular Hemoglobin Concent 28.6L, Red Cell Distribution Width 20.6H, Platelet Count 258, Mean Platelet Volume 5.6L, Neutrophils (%) (Auto) , Lymphocytes (%) (Auto) , Monocytes (%) (Auto) , Eosinophils (%) (Auto) , Basophils (%) (Auto) , Differential Total Cells Counted 100, Neutrophils % ( Manual) 72, Lymphocytes % (Manual) 12L, Monocytes % (Manual) 14H, Eosinophils % (Manual) 2, Basophils % (Manual) 0, Band Neutrophils 0, Platelet Estimate Adequate, Platelet Morphology Normal, Hypochromasia 1+, Anisocytosis 2+, Sodium Level 133L, Potassium Level 4.4, Chloride Level 94L, Carbon Dioxide Level 27, Anion Gap 12, Blood Urea Nitrogen 40H, Creatinine 8.2H, Estimat Glomerular Filtration Rate 6.1, Glucose Level 199H, Calcium Level 8.4L, Phosphorus Level 4.9, Total Bilirubin 0.7, Aspartate Amino Transf (AST/SGOT) 25, Alanine Aminotransferase (ALT/SGPT) 19, Alkaline Phosphatase 234H, Total Protein 7.9, Albumin 3.0L, Globulin 4.9, Albumin/Globulin Ratio 0.6L Height (Feet): 5 Height (Inches): 9.00 Weight (Pounds): 354 Malick Lizama MD Nov 20, 2018 16:52
[2018-11-20] MEDS ORDERED: HYDROMORPHO1 MG/1 M9 IJ (17:17)
[2018-11-20] MEDS ORDERED: HYDROMORPH0.5 MG/0.5 IV (17:17)
[2018-11-20] MEDS ORDERED: IPRATROPIU0.2 MG/1 M HHN (17:20)
[2018-11-20] MEDS ORDERED: LEVEMIR FL100 UNIT/1 SUBQ (17:21)
[2018-11-20] MEDS ORDERED: LORAZEPAM1 MG ORAL (17:22)
[2018-11-20] MEDS ORDERED: JANUVIA25 MG ORAL (17:23)
[2018-11-20] MEDS ORDERED: ZOLPIDEM TARTRAT5 MG ORAL (17:24)
[2018-11-20] MEDS ORDERED: EPOGEN20000 UNI1 SUBQ (17:26)
--- NOTE | 2018-11-20 19:15 | Progress Note ---
DATE: 11/20/2018 SUBJECTIVE: The patient is a patient, who is 63-year-old female patient. She does have some confusion, disorganized thought process, and some mood lability worsened by stress of her medical illness, but she has a lot of anxiety secondary to stress of her medical illness. That is why her attending has requested daily psychiatric consultation she is confused. She does have some altered mental status and confusion, worsened by stress of her medical illness. That is why her attending physician has requested daily psychiatric consultation for this patient. MENTAL STATUS EXAMINATION: This is a 63-year-old female. Appearance is disheveled. Attitude, irritable and agitated. Affect, guarded and restricted. Intellect poor. Mood depressed and anxious. Motor activity, psychomotor agitation. Attention span is poor. She is alert. Denies auditory or visual hallucinations or delusions. Denies suicidal or homicidal thoughts. Insight and judgment is fair. DIAGNOSIS: Generalized anxiety disorder. PLAN: Treat with Ativan 1 mg every six hours p.r.n. anxiety and agitation. Twenty minutes of supportive psychotherapy to identify her automatic negative thoughts and to help convert her negative thoughts to more positive thinking to reduce depression and anxiety to help promote that could be . Chart reviewed and discussed with staff. Seen and assessed in her room. Iker Lawrence M.D. DR: Jhoan JOB#: [id number] CC:
--- NOTE | 2018-11-21 08:50 | Discharge Summary ---
Discharge Summary Discharge Summary _ DATE OF ADMISSION: 11/17/2018 DATE OF DISCHARGE: 11/20/2018 DISCHARGED BY: Dr. Roderick Henning CONSULTANTS: Dr. Santosh Rogel [facility]: Patient is a 63-year-old female, who lives at home with history of end-stage renal disease. Apparently patient was in a wheelchair in the living room, was reaching for something, fell down and was unable to get up. Chest medical history significant for end-stage renal disease, CHF, shortness of breath, anemia, weakness, obesity and blindness. On evaluation at the ED, there was noted swelling and abrasion with tenderness to the left distal tibial-fibular region. X-ray of the left lower leg showed a mildly displaced oblique fracture of the distal fibular diaphysis. There was displaced fracture of the medial malleolus. Left ankle x-ray showed a displaced avulsion fracture of the medial malleolus. Widening of the anterior and medial mortise spaces, with mild tibiotalar subluxation, indicating ligamentous disruption. There was mildly displaced oblique fracture of the distal femur diaphysis extending to the mortise. A leg splint was placed. She was then admitted for evaluation and management of left leg and ankle fracture. She was continued on inpatient hemodialysis. She was noted to have anemia, possibly from chronic kidney disease. She was given Venofer and Epogen. She was given thiamine and pyridoxine. She was noted to have wound on the right lateral midfoot and right plantar hallux. Wound base was granular, superficial, only dermal exposed. There were no acute signs of infection. No active purulent drainage. She was given wound care. [employer] Backtender was consulted for evaluation prior to possible surgery. Aspirin was placed on hold. She was given amlodipine for blood pressure control. She was continued on Lipitor. She had a recent nuclear stress test done at [facility] on October 25, 2018, with no evidence of ischemia. She has history of congestive heart failure with diastolic dysfunction and ejection fraction of 55%. She has history of obstructive sleep apnea and has been intolerant of CPAP. She was given nebulizer treatments with Atrovent. She was encouraged use of incentive spirometer. She was placed on SCDs for DVT prophylaxis. She was recommended BiPAP 12/7 while sedated or sleeping. Orthopedic consultation was obtained. Patient will need operative fixation with open reduction and internal fixation. Unfortunately, given her weight and medical comorbidities, patient would need to be transferred to a tertiary care center. Blood glucose was monitored. An episode of hypoglycemia. [employer] was consulted. She was taken off basal and mealtime insulin. She was started on Januvia 25 mg daily. She was eventually started on Levemir 8 units daily. Patient has mood lability, confusion and altered mental status, worsened by stress of her medical illness. Psychiatric consultation was obtained. She was diagnosed with generalized anxiety disorder. She was given Ativan as needed. She was continued on Neurontin. FINAL DIAGNOSES: Complex fracture of the left ankle Generalized anxiety disorder End-stage renal disease on hemodialysis Anemia of chronic kidney disease Mild hyperkalemia Hypertension Diabetes mellitus Back pain Obstructive sleep apnea Coronary artery disease stent Blindness Vertigo [employer] Hyperlipidemia Nonsustained ventricular tachycardia Episodes of bradycardia, resolved Congestive heart failure with diastolic dysfunction Morbid obesity Secondary hyperparathyroidism Status post AV graft with recent rupture DISPOSITION: Patient was transferred to [facility]. DISCHARGE MEDICATIONS: Refer to Discharge Medication List. I have been assigned to dictate discharge summary on this account, and I was not involved in the patient's management. Cece Scott NP Nov 21, 2018 08:50
== END 2018-11-20 20:40 | disposition short-term general hospital (02) | DRG 562 ==
LOC: EDBD 09:09 → EMR 09:25 → EDBEDREQ 10:08 → 4E 10:15 → EDBEDREQ 11:00
PROC: 5A1D70Z Performance of Urinary Filtration, Intermittent, Less than 6 Hours Per Day (ICD-10-PCS; principal; 2018-11-19)
DX: S82.842A Displaced bimalleolar fracture of left lower leg, initial encounter for closed fracture (principal); N18.6 End stage renal disease; I13.2 Hypertensive heart and chronic kidney disease with heart failure and with stage 5 chronic kidney disease, or end stage renal disease; Z68.42 Body mass index [BMI] 45.0-49.9, adult; I47.2 Ventricular tachycardia; I50.30 Unspecified diastolic (congestive) heart failure; N25.81 Secondary hyperparathyroidism of renal origin; W05.0XXA Fall from non-moving wheelchair, initial encounter; Y92.008 Other place in unspecified non-institutional (private) residence as the place of occurrence of the external cause; E11.22 Type 2 diabetes mellitus with diabetic chronic kidney disease; I50.9 Heart failure, unspecified; Z99.2 Dependence on renal dialysis; D63.1 Anemia in chronic kidney disease; S90.921A Unspecified superficial injury of right foot, initial encounter; X58.XXXA Exposure to other specified factors, initial encounter; G47.33 Obstructive sleep apnea (adult) (pediatric); F41.1 Generalized anxiety disorder; E87.5 Hyperkalemia; M54.9 Dorsalgia, unspecified; I25.10 Atherosclerotic heart disease of native coronary artery without angina pectoris; Z95.5 Presence of coronary angioplasty implant and graft; R42 Dizziness and giddiness; E78.5 Hyperlipidemia, unspecified; R00.1 Bradycardia, unspecified; E66.01 Morbid (severe) obesity due to excess calories; E11.49 Type 2 diabetes mellitus with other diabetic neurological complication; H54.3 Unqualified visual loss, both eyes; F32.9 Major depressive disorder, single episode, unspecified; Z53.1 Procedure and treatment not carried out because of patient's decision for reasons of belief and group pressure
CPT/HCPCS: 29515; 36415; 80048; 80053; 82607; 82728; 82746; 82962; 83540; 83550; 83735; 83880; 84100; 85007; 85025; 86140; 87081; 94664; 99285; J1815; S5561

== ENCOUNTER 2019-10-15 02:34 | Inpatient (IN) | payer MEDICARE, OTHER ==
[~2019-10-15] VITALS: Ht 165.1 cm; Wt 126.1 kg
[~2019-10-15 02:34] MED LIST changes: +EPOGEN20000 UNI1 SUBQ; +HYDROMORPH0.5 MG/0.5 IV; +HYDROMORPHO1 MG/1 M9 IJ; +IPRATROPIU0.2 MG/1 M HHN; +JANUVIA25 MG ORAL; +LORAZEPAM1 MG ORAL
[2019-10-15 02:35] VITALS: BP 161/80
--- NOTE | 2019-10-15 02:45 | Emergency Room Report ---
History of Present Illness General Chief Complaint: Abdominal Pain Source: Patient, Medical Record, EMS Present Illness HPI Disclaimer: Please note that this report is being documented using DRAGON technology. This can lead to erroneous entry secondary to incorrect interpretation by the dictating instrument. HPI: 64-year-old female with history of ESRD, CHF, anemia and obesity presents for evaluation of abdominal pain. Symptoms have been present for 5 days. They are localized over the lower abdomen suprapubic region. Reports dysuria and frequency. Cannot attest to hematuria she is blind. Denies nausea or vomiting. Denies diarrhea, fever or chills. She does note some pain over the flanks. Had a full course of hemodialysis today. PMH: CHF, ESRD, anemia, obesity, blindness PSH: Right upper extremity fistula Allergies: None reported Social Hx: Denies drug or alcohol abuse Allergies: Coded Allergies: NO KNOWN ALLERGIES (Unverified Allergy, Unknown, 10/15/15) Patient History Last Menstrual Period: n/a Now: No Nursing Documentation-PMH Past Medical History: No History, Except For Hx Hypertension: Yes Hx Pacemaker: No Hx Asthma: Yes Hx COPD: Yes Hx Diabetes: Yes Hx Cancer: No Hx Gastrointestinal Problems: Yes Hx Dialysis: Yes - Hx Neurological Problems: No Hx Peripheral Neuropathy: Yes - secondary to DM Hx Tremors: Yes Hx Vertigo: Yes Hx Dizziness: Yes Hx Syncope: Yes Hx Headaches: Yes Hx Weakness: Yes Hx Fatigue: Yes Review of Systems All Other Systems: negative except mentioned in HPI Physical Exam General: Awake and alert, no acute distress, morbid obesity HEENT: NC/AT. EOMI. hard of hearing. Edematous lower lip Cardiovascular: Pacemaker palpable. RRR. S1 and S2 normal. No murmur appreciated. Fistula with palpable thrill in the right upper extremity Resp: Normal work of breathing. No cough, wheezing or crackles appreciated Abdomen: Abdomen is soft, nondistended, morbidly obese. Tender in the suprapubic region Skin: Intact. No abrasions, laceration or rash over the exposed skin MSK: Normal tone and bulk. Moving all extremities. No obvious deformity. Neuro: Awake and alert. Mentating appropriately. Back/Spine: Mild CVA tenderness bilaterally Medical Decision Making Diagnostic Impression: Primary Impression: End stage renal disease on dialysis Additional Impressions: UTI (urinary tract infection) Pyelonephritis Hyperkalemia ER Course 64-year-old female presents for evaluation of 5 days abdominal pain dysuria. Differential includes was not limited to UTI, appendicitis, bowel obstruction, pyelonephritis, cholecystitis. Completed hemodialysis today. Will check labs including urinalysis. She arrives with stable vital signs. Laboratory Tests Test 10/15/19 02:55 10/15/19 03:04 White Blood Count 6.2 K/UL (4.8-10.8) Red Blood Count 3.68 M/UL (4.20-5.40) L Hemoglobin 8.9 G/DL (12.0-16.0) L Hematocrit 28.9 % (37.0-47.0) L Mean Corpuscular Volume 79 FL (80-99) L Mean Corpuscular Hemoglobin 24.1 PG (27.0-31.0) L Mean Corpuscular Hemoglobin Concent 30.7 G/DL (32.0-36.0) L Red Cell Distribution Width 17.2 % (11.6-14.8) H Platelet Count 137 K/UL (150-450) L Mean Platelet Volume 8.0 FL (6.5-10.1) Neutrophils (%) (Auto) 60.9 % (45.0-75.0) Lymphocytes (%) (Auto) 22.8 % (20.0-45.0) Monocytes (%) (Auto) 12.8 % (1.0-10.0) H Eosinophils (%) (Auto) 2.4 % (0.0-3.0) Basophils (%) (Auto) 1.0 % (0.0-2.0) Sodium Level 135 MMOL/L (136-145) L Potassium Level 5.2 MMOL/L (3.5-5.1) H Chloride Level 94 MMOL/L (98-107) L Carbon Dioxide Level 39 MMOL/L (21-32) H Anion Gap 2 mmol/L (5-15) L Blood Urea Nitrogen 47 mg/dL (7-18) H Creatinine 5.0 MG/DL (0.55-1.30) H Estimate Glomerular Filtration Rate 10.7 mL/min (>60) Glucose Level 158 MG/DL (74-106) H Calcium Level 8.8 MG/DL (8.5-10.1) Total Bilirubin 0.8 MG/DL (0.2-1.0) Aspartate Amino Transferase (AST) 55 U/L (15-37) H Alanine Aminotransferase (ALT) 56 U/L (12-78) Alkaline Phosphatase 440 U/L (46-116) H Total Protein 8.8 G/DL (6.4-8.2) H Albumin 4.2 G/DL (3.4-5.0) Globulin 4.6 g/dL Albumin/Globulin Ratio 0.9 (1.0-2.7) L Lipase 147 U/L (73-393) Urine Color Yellow Urine Appearance Cloudy Urine pH 7 (4.5-8.0) Urine Specific [place] 1.010 (1.005-1.035) Urine Protein 4+ (NEGATIVE) H Urine Glucose (UA) Negative (NEGATIVE) Urine Ketones Negative (NEGATIVE) Urine Blood 5+ (NEGATIVE) H Urine Nitrite Negative (NEGATIVE) Urine Bilirubin Negative (NEGATIVE) Urine Urobilinogen Normal MG/DL (0.0-1.0) Urine Leukocyte Esterase 3+ (NEGATIVE) H Urine RBC Tntc /HPF (0 - 2) H Urine WBC Tntc /HPF (0 - 2) H Urine Squamous Epithelial Cells Few /LPF (NONE/OCC) Urine Bacteria Moderate /HPF (NONE) H EKG Diagnostic Results EKG Time: 04:44 Rate: normal Rhythm: other - Paced rhythm ST Segments: no acute changes Other Impression Paced rhythm, normal axis, prolonged [place] interval, prolonged QTC Rhythm Strip Diag. Results Rhythm Strip Time: 04:44 EP Interpretation: yes Rate: 60 Rhythm: other - Paced rhythm Reevaluation Time: 04:25 Reevaluation Impression No significant white count seen on labs. The patient has baseline anemia with a hemoglobin of 8.9. Otherwise labs show potassium just above the higher limit of normal at 5.2 and an abnormal creatinine and BUN which is consistent with the patient's kidney disease. She had hemodialysis earlier today. No EKG changes to suggest acute hyperkalemia. Urinalysis shows 3+ leukocyte esterase, innumerable leukocytes and moderate bacteria consistent with an acute urinary tract infection. Given the patient's flank pain and overall appearance I suspect pyelonephritis. She will be treated with IV antibiotics and admitted for further management to her PMD, Dr. Henning. Disposition: ADMITTED INPATIENT Condition: Serious Keenan Nguyen MD Oct 15, 2019 02:45
[2019-10-15 03:19] LABS: EOSINOPHILS % (AUTO) 2.4 % (0.0-3.0); HEMATOCRIT 28.9 % (37.0-47.0); HEMOGLOBIN 8.9 G/DL (12.0-16.0); LYMPHOCYTES % (AUTO) 22.8 % (20.0-45.0); MEAN CORPUSCULAR VOLUME 79 FL (80-99); MONOCYTES % (AUTO) 12.8 % (1.0-10.0); NEUTROPHILS % (AUTO) 60.9 % (45.0-75.0); PLATELET COUNT 137 K/UL (150-450); RED BLOOD COUNT 3.68 M/UL (4.20-5.40); RED CELL DISTRIBUTION WIDTH 17.2 % (11.6-14.8); WHITE BLOOD COUNT 6.2 K/UL (4.8-10.8)
[2019-10-15 03:22] LABS: BILIRUBIN, URINE NEGATIVE (NEGATIVE); GLUCOSE, URINE (UA) NEGATIVE (NEGATIVE); KETONES,URINE NEGATIVE (NEGATIVE); LEUKOCYTE ESTERASE ,URINE 3+ (NEGATIVE); NITRITE,URINE NEGATIVE (NEGATIVE); PH,URINE 7 (4.5-8.0); PROTEIN,URINE 4+ (NEGATIVE); UROBILINOGEN,URINE NORMAL MG/DL (0.0-1.0)
[2019-10-15 03:23] LABS: APPEARANCE,URINE CLOUDY; COLOR,URINE YELLOW
[2019-10-15 03:26] LABS: ANION GAP 2 mmol/L (5-15); BLOOD UREA NITROGEN 47 mg/dL (7-18); CALCIUM 8.8 MG/DL (8.5-10.1); CARBON DIOXIDE 39 MMOL/L (21-32); CHLORIDE 94 MMOL/L (98-107); POTASSIUM 5.2 MMOL/L (3.5-5.1); SODIUM 135 MMOL/L (136-145)
[2019-10-15 03:31] LABS: ALANINE AMINOTRANSFERASE 56 U/L (12-78); ALBUMIN 4.2 G/DL (3.4-5.0); ALBUMIN/GLOBULIN RATIO 0.9 (1.0-2.7); ALKALINE PHOSPHATASE 440 U/L (46-116); ASPARTATE AMINO TRANSFERASE 55 U/L (15-37); BILIRUBIN,TOTAL 0.8 MG/DL (0.2-1.0)
[2019-10-15] MEDS ORDERED: Morphine Sulfate 4mg/ml Inj (IV USE ONLY) IVP ONE (03:45)
[2019-10-15] MEDS ORDERED: cefTRIAXone 1 GM in NS 55 ML IVPB ONE (03:45)
[2019-10-15] MEDS ORDERED: Morphine Sulfate 2mg/ml Inj(IV/IM USE ONLY) IVP PRN ×2 (04:45→06:30)
[2019-10-15 08:00] VITALS: BP 139/86
[2019-10-15] MEDS ORDERED: Ipratropium 0.02% Inh Soln 2.5ml UD HHN PRN (08:15)
[2019-10-15] MEDS ORDERED: LORazepam 1mg tab ORAL PRN (08:15)
[2019-10-15] MEDS ORDERED: Miralax 17gm pkt ORAL PRN (08:15)
[2019-10-15] MEDS ORDERED: Hydromorphone 0.5mg/0.5ml inj IVP PRN ×2 (08:15→08:30)
[2019-10-15] MEDS ORDERED: Dextrose 50% 25ml Syringe IV PRN (08:30)
[2019-10-15] MEDS ORDERED: Docusate 100mg cap ORAL SCH ×2 (09:00→18:00)
--- NOTE | 2019-10-15 09:59 | Consultation ---
Consult Note Consult Note HPI: 64yo woman with PMH below presents with few days of dysuria, frequency, suprapubic pain. Pt states that she gets UTIs often and she knows she has a UTI. Reports bilateral flank pain. Denies fever, chills, nausea, vomiting, cough , sore throat, chest pain, diarrhea. Reports orthopnea. Pt states that [facility] was giving her PO antibiotics twice a day but her symptoms did not improve. Spoke to Tequila at [facility] and no record of recent antibiotics. ROS: All ten point ROS negative except for what is above. PMH: CHF ESRD Anemia Obesity Blindness HTN Asthma COPD DM Meds: reviewed NKDA SHx: denies tobacco or drug use. Once a year zena. Lives at home and receives [facility] health care. no pets. FHx: noncontributory VS: reviewed Gen: NAD. hard of hearing. HEENT: Anicteric sclera. No oral thrush CV: RRR. no murmurs or rubs. Resp: CTAB. RRR. no wheezes or crackles. Abd: normoactive BS+. Soft. suprapubic tenderness. Back: bilateral flank pain Neuro: alert. interactive Skin: warm. dry. Labs: reviewed Assessment: Afebrile Nontachycardic RA No leukocytosis UTI UA with WBC TNTC UCx: P r/o bacteremia BCx: ESRD on HD DM2 b/l eye blindness CHF bradycardia 2ry hyperparathyroidism CAD s/p stent AOCD s/p AVG w recent rupture HTN morbid obesity h/o R foot cellulitis h/o pancreatitis Plan: continue Ceftriaxone #1, no history of MDR infections per [facility] records obtain two sets of bcx f/u ucx aspiration precaution, elevate HOB, skin care Thank you for this consult. [facility] will continue to follow the patient with you. Clarice Nicolas MD Oct 15, 2019 09:59
[2019-10-15] MEDS: Levemir Flexpen SUBQ SCH (10:00)
[2019-10-15] MEDS: Thiamine 100mg tab ORAL SCH (10:23)
[2019-10-15] MEDS: Pyridoxine 50mg tab ORAL SCH (10:23)
[2019-10-15] MEDS: sitaGLIPtin 25mg tab ORAL SCH (10:24)
--- NOTE | 2019-10-15 10:52 | Consultation ---
Consult Note Consult Note asked to eval for dialysis management Sun Sat HPI: 64-year-old female with history of ESRD, CHF, anemia and obesity presents for evaluation of abdominal pain. Symptoms have been present for 5 days. They are localized over the lower abdomen suprapubic region. Reports dysuria and frequency. Cannot attest to hematuria she is blind. Denies nausea or vomiting. Denies diarrhea, fever or chills. She does note some pain over the flanks. Had a full course of hemodialysis today. PMH: CHF, ESRD, anemia, obesity, blindness PSH: Right upper extremity fistula Allergies: None reported NO KNOWN ALLERGIES (Unverified Allergy, Unknown, 10/15/15) Past Medical History: No History, Except For Hx Hypertension: Yes Hx Pacemaker: No Hx Asthma: Yes Hx COPD: Yes Hx Diabetes: Yes Hx Gastrointestinal Problems: Yes Hx Dialysis: Yes - Hx Neurological Problems: No Hx Peripheral Neuropathy: Yes - secondary to DM Hx Tremors: Yes Hx Vertigo: Yes Hx Dizziness: Yes Hx Syncope: Yes Hx Headaches: Yes Hx Weakness: Yes Hx Fatigue: Yes examined data reviewed has shunt in right arm for dialysis Assessment/Plan End stage renal disease on dialysis UTI (urinary tract infection) Pyelonephritis Hyperkalemia morbid obesity Anemia / Jehova's witness CAD previous stent HTN s/p AVG DM 2 bilateral eye blindness h/o CHF Dialysis next 10/16 Venofer and EPO, thiamin and b6 diet to renal , medium CHO per consultants Bryan Hunter MD Oct 15, 2019 10:52
[2019-10-15] MEDS: Insulin NovoLOG Flexpen S/S (insulin sensitive) SUBQ SCH ×3 (11:30→20:52)
[2019-10-15] MEDS ORDERED: NovoLOG Insulin Flexpen SUBQ SCH (11:30)
[2019-10-15 12:00] VITALS: BP 137/81
--- NOTE | 2019-10-15 13:56 | GI Initial Consult Note ---
History of Present Illness General Date patient seen: Oct 15, 2019 Time patient seen: 13:49 Reason for Hospitalization: Abdominal Pain Referring physician: BRIE LAN Reason for Consultation: ABDOMIAL PAIN Present Illness HPI 64-year-old female with history of ESRD, CHF, anemia and obesity presents for evaluation of abdominal pain. Symptoms have been present for 5 days. They are localized over the lower abdomen suprapubic region. Reports dysuria and frequency. Cannot attest to hematuria she is blind. Denies nausea or vomiting. Denies diarrhea, fever or chills. She does note some pain over the flanks. Had a full course of hemodialysis today. GI consulted for reported abdominal pain x5 days. At the time of evaluation, patient seen awake alert oriented x4 no apparent distress. Patient denied any abdominal pain, denied any abdominal tenderness with no rebounding or guarding. Patient stated she recently had a bowel movement. The patient denied any hematemesis or coffee-ground, denied any bradycardia or melena. 1 patient has history of EGD back in October 24, 2018 for complaint of abdominal pain found to have gastritis. Patient stated she had a colonoscopy within the past 5 years which was unremarkable. In addition, reported the patient does have a history of pancreatitis. Home Meds Reported Medications Epoetin Jose De Jesus (EPOGEN) 20,000 Unit/2 Ml Vial, 83244 UNIT SUBQ sun/sun/sun, VIAL 11/20/18 Zolpidem Tartrate* (ZOLPIDEM TARTRATE*) 5 Mg Tablet, 5 MG ORAL BEDTIME PRN for Insomnia, TAB 0 Refills 11/20/18 Sitagliptin* (JANUVIA*) 25 Mg Tablet, 25 MG ORAL DAILY, TAB 11/20/18 Lorazepam* (LORAZEPAM*) 1 Mg Tablet, 1 MG ORAL Q6HR PRN for For Anxiety, TAB 11/20/18 Insulin Detemir (LEVEMIR FLEXPEN) 100 Unit/1 Ml Insuln.pen, 8 SUBQ DAILY, #300 UNITS 0 Refills 11/20/18 Ipratropium Olin 0.5MG/2.5ML (IPRATROPIUM BROMIDE 0.5MG/2.5ML) 0.2 Mg/1 Ml Solution, 0.5 MG HHN Q4H PRN for Shortness of Breath, #28 EA 11/20/18 Hydromorphone HCl/Pf (Hydromorphone 1 mg/ml Vial) 1 Mg/1 Ml Vial, 0.5 MG IJ Q6HR PRN for For Pain, VIAL 11/20/18 Unable to Obtain Medications (UNABLE TO OBTAIN MEDS) 1 Ea Ea 11/17/18 Thiamine Hcl* (VITAMIN B-1*) 100 Mg Tablet, 100 MG ORAL DAILY, #30 TAB 0 Refills 11/15/18 Pyridoxine Hcl* (VITAMIN B-6*) 50 Mg Tablet, 50 MG ORAL DAILY, TAB 0 Refills 11/15/18 Phenazopyridine Hcl* (PYRIDIUM*) 100 Mg Tablet, 100 MG ORAL THREE TIMES A DAY, TAB 11/15/18 Gabapentin* (GABAPENTIN*) 300 Mg Capsule, 300 MG ORAL THREE TIMES A DAY, CAP 0 Refills 11/15/18 Diphenhydramine Hcl* (BENADRYL*) 25 Mg Capsule, 50 MG ORAL Q6H PRN for Itching, CAP 11/15/18 Atorvastatin Calcium* (LIPITOR*) 10 Mg Tablet, 10 MG ORAL BEDTIME, TAB 11/15/18 Insulin Aspart (Novolog Flexpen) 100 Unit/1 Ml Insuln.pen, 1 UNITS SUBQ AC+HS 08/15/16 Polyethylene Glycol 3350* (MIRALAX*) 17 Gm Powd.pack, 17 GM ORAL DAILY PRN for Constipation, PACKET 08/15/16 Acetaminophen (Tylenol) 325 Mg Tablet, 650 MG ORAL Q4HR PRN for Mild Pain/Temp > 100.5, #30 TAB 0 Refills 08/15/16 Clonidine Hcl* (CATAPRES*) 0.1 Mg Tablet, 0.1 MG ORAL EVERY 4 HOURS PRN for For High Blood Pressure, TAB 06/01/16 Pantoprazole* (PANTOPRAZOLE*) 40 Mg Tablet.dr, 40 MG ORAL DAILY, TAB 10/15/15 Docusate Sodium (DOK) 100 Mg Capsule, 100 MG PO BID, CAP 06/27/14 Amlodipine Besylate* (AMLODIPINE BESYLATE*) 10 Mg Tablet, 10 MG ORAL DAILY, TAB 06/27/14 Discontinued Reported Medications Hydrocodone Bit/Acetaminophen 10-325* (NORCO 10-325*) 1 Each Tablet, 1 TAB ORAL Q4H PRN for For Pain, TAB 0 Refills PRN PAIN 11/15/18 Med list reviewed/reconciled: Yes Allergies: Coded Allergies: NO KNOWN ALLERGIES (Unverified Allergy, Unknown, 10/15/15) Patient History History Provided By: Patient, Medical Record PMH Narrative PMH: CHF, ESRD, anemia, obesity, blindness PSH: Right upper extremity fistula Allergies: None reported Social Hx: Denies drug or alcohol abuse Allergies: Coded Allergies: NO KNOWN ALLERGIES (Unverified Allergy, Unknown, 10/15/15) Patient History Last Menstrual Period: n/a Now: No Nursing Documentation-PMH Past Medical History: No History, Except For Hx Hypertension: Yes Hx Pacemaker: No Hx Asthma: Yes Hx COPD: Yes Hx Diabetes: Yes Hx Cancer: No Hx Gastrointestinal Problems: Yes Hx Dialysis: Yes - Hx Neurological Problems: No Hx Peripheral Neuropathy: Yes - secondary to DM Hx Tremors: Yes Hx Vertigo: Yes Hx Dizziness: Yes Hx Syncope: Yes Hx Headaches: Yes Hx Weakness: Yes Hx Fatigue: Yes Social History: Denies: smoking, alcohol use, drug use, other Review of Systems All Other Systems: negative except mentioned in HPI Physical Exam Vital Signs Date Time Temp Pulse Resp B/P (MAP) Pulse Ox O2 Delivery O2 Flow Rate FiO2 10/15/19 02:33 97.7 60 18 161/80 (107) 96 Room Air Sp02 EP Interpretation: reviewed, normal Labs Laboratory Tests Test 10/15/19 02:55 10/15/19 03:04 White Blood Count 6.2 K/UL (4.8-10.8) Red Blood Count 3.68 M/UL (4.20-5.40) L Hemoglobin 8.9 G/DL (12.0-16.0) L Hematocrit 28.9 % (37.0-47.0) L Mean Corpuscular Volume 79 FL (80-99) L Mean Corpuscular Hemoglobin 24.1 PG (27.0-31.0) L Mean Corpuscular Hemoglobin Concent 30.7 G/DL (32.0-36.0) L Red Cell Distribution Width 17.2 % (11.6-14.8) H Platelet Count 137 K/UL (150-450) L Mean Platelet Volume 8.0 FL (6.5-10.1) Neutrophils (%) (Auto) 60.9 % (45.0-75.0) Lymphocytes (%) (Auto) 22.8 % (20.0-45.0) Monocytes (%) (Auto) 12.8 % (1.0-10.0) H Eosinophils (%) (Auto) 2.4 % (0.0-3.0) Basophils (%) (Auto) 1.0 % (0.0-2.0) Sodium Level 135 MMOL/L (136-145) L Potassium Level 5.2 MMOL/L (3.5-5.1) H Chloride Level 94 MMOL/L (98-107) L Carbon Dioxide Level 39 MMOL/L (21-32) H Anion Gap 2 mmol/L (5-15) L Blood Urea Nitrogen 47 mg/dL (7-18) H Creatinine 5.0 MG/DL (0.55-1.30) H Estimat Glomerular Filtration Rate 10.7 mL/min (>60) Glucose Level 158 MG/DL (74-106) H Calcium Level 8.8 MG/DL (8.5-10.1) Total Bilirubin 0.8 MG/DL (0.2-1.0) Aspartate Amino Transf (AST/SGOT) 55 U/L (15-37) H Alanine Aminotransferase (ALT/SGPT) 56 U/L (12-78) Alkaline Phosphatase 440 U/L (46-116) H Total Protein 8.8 G/DL (6.4-8.2) H Albumin 4.2 G/DL (3.4-5.0) Globulin 4.6 g/dL Albumin/Globulin Ratio 0.9 (1.0-2.7) L Lipase 147 U/L (73-393) Urine Color Yellow Urine Appearance Cloudy Urine pH 7 (4.5-8.0) Urine Specific [place] 1.010 (1.005-1.035) Urine Protein 4+ (NEGATIVE) H Urine Glucose (UA) Negative (NEGATIVE) Urine Ketones Negative (NEGATIVE) Urine Blood 5+ (NEGATIVE) H Urine Nitrite Negative (NEGATIVE) Urine Bilirubin Negative (NEGATIVE) Urine Urobilinogen Normal MG/DL (0.0-1.0) Urine Leukocyte Esterase 3+ (NEGATIVE) H Urine RBC Tntc /HPF (0 - 2) H Urine WBC Tntc /HPF (0 - 2) H Urine Squamous Epithelial Cells Few /LPF (NONE/OCC) Urine Bacteria Moderate /HPF (NONE) H General Appearance: well appearing, no apparent distress, alert Head: normocephalic EENT: PERRL/EOMI, normal ENT inspection Neck: supple Respiratory: normal breath sounds, no respiratory distress Cardiovascular: normal rate Gastrointestinal: normal inspection, non tender, soft, normal bowel sounds, non -distended Rectal: deferred Genitourinary: no CVA tenderness Musculoskeletal: normal inspection, back normal Neurologic: normal inspection, alert, oriented x3, responsive Psychiatric: normal inspection, judgement/insight normal, memory normal Skin: normal inspection, normal color, no rash, warm/dry, palpation normal, well hydrated Lymphatic: normal inspection, no adenopathy Current Medications Current Medications Medications (Trade) Dose Ordered Sig/Josi Route PRN Reason Start Time Stop Time Status Last Admin Dose Admin Acetaminophen (Tylenol) 650 mg Q4H PRN ORAL Mild Pain/Temp > 100.5 10/15/19 08:15 11/14/19 08:14 Amlodipine Besylate (Norvasc) 10 mg DAILY ORAL 10/16/19 09:00 11/14/19 08:59 Atorvastatin Calcium (Lipitor) 10 mg BEDTIME ORAL 10/15/19 21:00 11/14/19 20:59 Ceftriaxone Sodium 1 gm/ Dextrose 55 ml @ 110 mls/hr Q24H IVPB 10/16/19 12:00 10/23/19 11:59 Clonidine HCl (Catapres Tab) 0.1 mg Q4H PRN ORAL SBP>160mmHg 10/15/19 08:15 11/14/19 08:14 Dextrose (Dextrose 50%) 25 ml Q30M PRN IV Hypoglycemia 10/15/19 08:30 11/14/19 08:23 Dextrose (Dextrose 50%) 50 ml Q30M PRN IV hypoglycemia 10/15/19 08:30 11/14/19 08:29 Diphenhydramine HCl (Benadryl) 50 mg Q6H PRN ORAL Itching 10/15/19 08:15 11/14/19 08:14 Docusate Sodium (Colace) 100 mg TID ORAL 10/15/19 13:00 11/14/19 08:59 Epoetin Jose De Jesus (Epoetin Jose De Jesus(ESRD on dialysis)) 10,000 unit SUN-SUN-SUN SUBQ 10/15/19 21:00 11/14/19 20:59 Gabapentin (Neurontin) 300 mg DAILY ORAL 10/15/19 09:00 11/14/19 08:59 10/15/19 10:24 Hydromorphone HCl (Dilaudid) 0.5 mg Q6H PRN IVP SEVERE BREAKTHROUGH PAIN 10/15/19 08:30 10/22/19 08:14 Insulin Aspart (NovoLOG) BEFORE MEALS AND HS SUBQ 10/15/19 11:30 11/14/19 11:29 Insulin Detemir (Levemir) 8 units DAILY SUBQ 10/15/19 10:00 11/14/19 09:59 Ipratropium Olin (Atrovent) 500 mcg Q4H PRN HHN Shortness of Breath 10/15/19 08:15 10/20/19 08:14 Iron Sucrose 100 mg/Sodium Chloride 60 ml @ 240 mls/hr BEDTIME IV 10/16/19 21:00 10/20/19 21:14 Lorazepam (Ativan) 1 mg Q6H PRN ORAL For Anxiety 10/15/19 08:15 10/22/19 08:14 Morphine Sulfate (Morphine Sulfate) 2 mg Q4H PRN IVP Severe Pain (Pain Scale 7-10) 10/15/19 08:15 10/22/19 08:14 Pantoprazole (Protonix) 40 mg Q12HR ORAL 10/15/19 21:00 11/14/19 08:59 Polyethylene Glycol (Miralax) 17 gm DAILYPRN PRN ORAL Constipation 10/15/19 08:15 11/14/19 08:14 Pyridoxine HCl (Vitamin B6) 50 mg DAILY ORAL 10/15/19 10:00 11/14/19 09:59 10/15/19 10:23 Sitagliptin Phosphate (Januvia) 25 mg DAILY ORAL 10/15/19 10:00 11/14/19 09:59 10/15/19 10:24 Thiamine HCl (Vitamin B1) 100 mg DAILY ORAL 10/15/19 09:00 11/14/19 08:59 10/15/19 10:23 Zolpidem Tartrate (Ambien) 5 mg HSPRN PRN ORAL Insomnia 10/15/19 21:00 10/22/19 20:59 GI: Plan Problems: (1) Intractable abdominal pain (2) Anemia (3) Patient is Gnosticism (4) Iron deficiency (5) Morbid obesity (6) Blindness of both eyes Plan Lipase within normal limits History of endoscopy September 2018, noted with mild chronic gastritis Will consider abdominal pelvic CT patient has persistent abdominal pain No plans for any GI procedures at this time anemia work up Advance diet as tolerated Pain management Bowel regimen of Colace plus MiraLAX Zofran as needed PPI IV and p.o. hydration We will follow along on a daily basis with additional recommendations Discussed with Dr. Garcia. Thank you for this patient referral, we will follow. The patient was seen and examined at bedside and all new and available data was reviewed in the patients chart. I agree with the above findings, impression and plan. (Patient seen earlier today. Signature stamp does not reflect patient encounter time.). - MD Veronica McnultyYavap[facility] CUSTOMER SUPPORT TECHNICIAN Oct 15, 2019 13:56
[2019-10-15] MEDS: Docusate 100mg cap ORAL SCH ×2 (14:24→17:12)
[2019-10-15 16:00] VITALS: BP 142/87
[2019-10-15] MEDS: Morphine Sulfate 2mg/ml Inj(IV/IM USE ONLY) IVP PRN (17:12)
[2019-10-15 20:00] VITALS: BP 158/75
[2019-10-15] MEDS: Miralax 17gm pkt ORAL SCH (20:45)
[2019-10-15] MEDS: Epoetin Alfa-EPBX(ESRD on dialysis)10,000 unit/ml vial SUBQ SCH (20:50)
--- NOTE | 2019-10-15 22:15 | History and Physical Report ---
DATE OF ADMISSION: 10/15/2019 CONSULTANTS: 1. Bryan Hunter M.D. 2. Jamison Garcia M.D. 3. . CHIEF COMPLAINT: Abdominal pain, UTI, and ESRD. BRIEF HISTORY: This is a 64-year-old female who lives at home with history of ESRD, on dialysis, presented with two-day increased abdominal pain, intermittent. The patient came to [place] [facility], diagnosed with UTI and sepsis, abdominal pain, and ESRD, and admitted to medical floor for further treatment. Currently, after pain med, feeling better. No complaint otherwise. REVIEW OF SYSTEMS: No chest pain. Slight shortness of breath. Slight nausea. No vomiting or diarrhea. PAST MEDICAL HISTORY: Hypertension, diabetes, CHF, and ESRD. PAST SURGICAL HISTORY: Shunt. MEDICATIONS: Include ceftriaxone, amlodipine, atorvastatin, zolpidem, epoetin, pantoprazole, docusate sodium, insulin, gabapentin, hydromorphone, and clonidine. ALLERGIES: Denies. SOCIAL HISTORY: No smoking. No alcohol. No intravenous drug abuse. FAMILY HISTORY: Noncontributory. PHYSICAL EXAMINATION: GENERAL: Calm in bed, oriented x2, in no acute distress. VITAL SIGNS: Temperature is 97 degrees, pulse 60, respirations 19, and blood pressure 137/81. CARDIOVASCULAR: No murmurs. LUNGS: Distant and clear. ABDOMEN: Bowel sounds positive. Nontender. Nondistended. EXTREMITIES: No cyanosis or edema. NEUROLOGIC: The patient moves all extremities, slightly weak. LABORATORY AND DIAGNOSTIC DATA: Labs at this time show hemoglobin and hematocrit are 8.9 and 28 and platelets 137,000. BMP shows sodium 135, potassium 5.2, chloride 94, CO2 39, BUN and creatinine are 47 and 5.0, and glucose 158. Albumin 4.2. Urinalysis, 3+ leukocyte esterase. PLAN: 1. Abdominal pain. 2. UTI. 3. Sepsis. 4. ESRD. 5. Anemia. 6. Hypertension. 7. Diabetes. 8. CHF. 9. Blindness. PLAN: 1. PT and dietary evaluation. 2. CBC and BMP in the morning. 3. Resume home medications. 4. Pain control. 5. Dialysis p.r.n. 6. Antibiotics per Infectious Disease. 7. We will continue to follow this patient. Roderick Henning D.O. DR: TABBY JOB#: [id number] CC:
[2019-10-16] VITALS: BP 120/88
[2019-10-16] MEDS: Morphine Sulfate 2mg/ml Inj(IV/IM USE ONLY) IVP PRN ×2 (00:34→14:18)
[2019-10-16 04:00] VITALS: BP 134/68
[2019-10-16] MEDS: Insulin NovoLOG Flexpen S/S (insulin sensitive) SUBQ SCH ×4 (06:30→20:47)
[2019-10-16 08:00] VITALS: BP 144/77
[2019-10-16] MEDS: Pyridoxine 50mg tab ORAL SCH (09:12)
[2019-10-16] MEDS: sitaGLIPtin 25mg tab ORAL SCH (09:13)
[2019-10-16] MEDS: Thiamine 100mg tab ORAL SCH (09:13)
[2019-10-16] MEDS: Docusate 100mg cap ORAL SCH ×3 (09:14→18:00)
[2019-10-16] MEDS: Levemir Flexpen SUBQ SCH (09:16)
[2019-10-16] MEDS: Heparin 5000 units/ml inj SUBQ SCH ×2 (09:19→20:43)
--- NOTE | 2019-10-16 11:25 | General Progress Note ---
Assessment/Plan Assessment/Plan: GI: Plan Problems: (1) Intractable abdominal pain (2) Anemia (3) Patient is Christianity (4) Iron deficiency (5) Morbid obesity (6) Blindness of both eyes Plan Lipase within normal limits History of endoscopy September 2018, noted with mild chronic gastritis Will consider abdominal pelvic CT patient has persistent abdominal pain No plans for any GI procedures at this time iv iron bowel regimen Advance diet as tolerated Pain management Bowel regimen of Colace plus MiraLAX Zofran as needed PPI IV and p.o. hydration We will follow along on a daily basis with additional recommendations . Thank you for this patient referral, we will follow. Subjective ROS Limited/Unobtainable: Yes Allergies: Coded Allergies: NO KNOWN ALLERGIES (Unverified Allergy, Unknown, 10/15/15) Objective Last 24 Hour Vital Signs Date Time Temp Pulse Resp B/P (MAP) Pulse Ox O2 Delivery O2 Flow Rate FiO2 10/16/19 09:14 61 144/77 10/16/19 09:00 Room Air 10/16/19 08:00 98.6 61 18 144/77 (99) 95 10/16/19 04:00 97.0 61 20 134/68 (90) 98 10/16/19 00:00 97.3 62 20 120/88 (99) 96 10/15/19 21:00 Room Air 10/15/19 20:00 96.6 61 20 158/75 (102) 100 10/15/19 16:00 97.0 60 20 142/87 (105) 96 10/15/19 12:00 97.0 60 19 137/81 (99) 97 Intake and Output 10/15/19 10/16/19 19:00 07:00 Intake Total 720 ml Balance 720 ml Intake Oral 720 ml # Voids 2 # Bowel Movements 2 Height (Feet): 5 Height (Inches): 5.00 Weight (Pounds): 278 General Appearance: alert EENT: normal ENT inspection Neck: supple Cardiovascular: normal rate Respiratory/Chest: decreased breath sounds Abdomen: normal bowel sounds, non tender, soft Extremities: non-tender Jamison Garcia MD Oct 16, 2019 11:25
[2019-10-16] MEDS ORDERED: Lactulose 20gm/30ml UDC ORAL SCH (11:30)
[2019-10-16] MEDS: cefTRIAXone 1 GM in D5W 55 ML IVPB SCH (11:55)
[2019-10-16 12:00] VITALS: BP 137/76
[2019-10-16 13:08] LABS: BASOPHILS % (AUTO) 1.1 % (0.0-2.0); EOSINOPHILS % (AUTO) 4.7 % (0.0-3.0); HEMATOCRIT 27.5 % (37.0-47.0); HEMOGLOBIN 8.6 G/DL (12.0-16.0); LYMPHOCYTES % (AUTO) 27.7 % (20.0-45.0); MEAN CORPUSCULAR VOLUME 78 FL (80-99); MONOCYTES % (AUTO) 18.8 % (1.0-10.0); NEUTROPHILS % (AUTO) 47.8 % (45.0-75.0); PLATELET COUNT 127 K/UL (150-450); RED BLOOD COUNT 3.52 M/UL (4.20-5.40); RED CELL DISTRIBUTION WIDTH 17.4 % (11.6-14.8); WHITE BLOOD COUNT 4.7 K/UL (4.8-10.8)
--- NOTE | 2019-10-16 13:09 | Nephrology Progress Note ---
Assessment/Plan Problem List: (1) End stage renal disease on dialysis (2) UTI (urinary tract infection) (3) Morbid obesity (4) Coronary artery disease (5) Hypertension (6) Anemia (7) Patient is Taoist Assessment End stage renal disease on dialysis UTI (urinary tract infection) Pyelonephritis Hyperkalemia morbid obesity Anemia / Jehova's witness CAD previous stent HTN s/p AVG DM 2 bilateral eye blindness h/o CHF Plan Dialysis next 10/16 Venofer and EPO, thiamin and b6 diet to renal , medium CHO per consultants Subjective ROS Limited/Unobtainable: No Constitutional: Reports: malaise, weakness Objective Objective Last 24 Hour Vital Signs Date Time Temp Pulse Resp B/P (MAP) Pulse Ox O2 Delivery O2 Flow Rate FiO2 10/16/19 12:00 98.1 63 18 137/76 (96) 95 10/16/19 11:45 60 20 97 Room Air 21 10/16/19 09:14 61 144/77 10/16/19 09:00 Room Air 10/16/19 08:00 98.6 61 18 144/77 (99) 95 10/16/19 04:00 97.0 61 20 134/68 (90) 98 10/16/19 00:00 97.3 62 20 120/88 (99) 96 10/15/19 21:00 Room Air 10/15/19 20:00 96.6 61 20 158/75 (102) 100 10/15/19 16:00 97.0 60 20 142/87 (105) 96 Intake and Output 10/15/19 10/16/19 19:00 07:00 Intake Total 720 ml Balance 720 ml Intake Oral 720 ml # Voids 2 # Bowel Movements 2 Laboratory Tests 10/16/19 12:40: White Blood Count [Pending], Red Blood Count [Pending], Hemoglobin [Pending], Hematocrit [Pending], Mean Corpuscular Volume [Pending], Mean Corpuscular Hemoglobin [Pending], Mean Corpuscular Hemoglobin Concent [Pending], Red Cell Distribution Width [Pending], Platelet Count [Pending], Mean Platelet Volume [ Pending], Neutrophils (%) (Auto) [Pending], Lymphocytes (%) (Auto) [Pending], Monocytes (%) (Auto) [Pending], Eosinophils (%) (Auto) [Pending], Basophils (%) (Auto) [Pending], Sodium Level [Pending], Potassium Level [Pending], Chloride Level [Pending], Carbon Dioxide Level [Pending], Blood Urea Nitrogen [Pending], Creatinine [Pending], Estimat Glomerular Filtration Rate [Pending], Glucose Level [Pending], Hemoglobin A1c [Pending], Uric Acid [Pending], Calcium Level [ Pending], Phosphorus Level [Pending], Magnesium Level [Pending], Iron Level [ Pending], Unsaturated Iron Binding [Pending], Ferritin [Pending], Total Bilirubin [Pending], Gamma Glutamyl Transpeptidase [Pending], Aspartate Amino Transf (AST/SGOT) [Pending], Alanine Aminotransferase (ALT/SGPT) [Pending], Alkaline Phosphatase [Pending], Total Creatine Kinase [Pending], C-Reactive Protein, Quantitative [Pending], Pro-B-Type Natriuretic Peptide [Pending], Total Protein [Pending], Albumin [Pending], Globulin [Pending], Triglycerides Level [Pending], Cholesterol Level [Pending], LDL Cholesterol [Pending], HDL Cholesterol [Pending], Cholesterol/HDL Ratio [Pending], Vitamin B12 Level [ Pending], Folate [Pending], Thyroid Stimulating Hormone (TSH) [Pending] Height (Feet): 5 Height (Inches): 5.00 Weight (Pounds): 278 General Appearance: no apparent distress Cardiovascular: normal rate Respiratory/Chest: decreased breath sounds Abdomen: distended Bryan Hunter MD Oct 16, 2019 13:09
--- NOTE | 2019-10-16 13:32 | General Progress Note ---
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 ICD Codes: E11.49 - Type 2 diabetes mellitus with other diabetic neurological complication SNOMED: 16739228, 497645498 (7) UTI (urinary tract infection) ICD Codes: N39.0 - Urinary tract infection, site not specified SNOMED: 14405028 (8) Anemia ICD Codes: D64.9 - Anemia, unspecified SNOMED: 539591420 Status: unchanged Assessment/Plan: pt diet abx pain control dilysisi cbc bmp am Subjective Constitutional: Reports: weakness Allergies: Coded Allergies: NO KNOWN ALLERGIES (Unverified Allergy, Unknown, 10/15/15) All Systems: reviewed and negative except above Subjective sleepy calm getting dialysis Objective Last 24 Hour Vital Signs Date Time Temp Pulse Resp B/P (MAP) Pulse Ox O2 Delivery O2 Flow Rate FiO2 10/16/19 12:00 98.1 63 18 137/76 (96) 95 10/16/19 11:45 60 20 97 Room Air 21 10/16/19 09:14 61 144/77 10/16/19 09:00 Room Air 10/16/19 08:00 98.6 61 18 144/77 (99) 95 10/16/19 04:00 97.0 61 20 134/68 (90) 98 10/16/19 00:00 97.3 62 20 120/88 (99) 96 10/15/19 21:00 Room Air 10/15/19 20:00 96.6 61 20 158/75 (102) 100 10/15/19 16:00 97.0 60 20 142/87 (105) 96 Intake and Output 10/15/19 10/16/19 19:00 07:00 Intake Total 720 ml Balance 720 ml Intake Oral 720 ml # Voids 2 # Bowel Movements 2 Laboratory Tests 10/16/19 12:30: Hepatitis B Surface Antigen [Pending] 10/16/19 12:40: White Blood Count 4.7L, Red Blood Count 3.52L, Hemoglobin 8.6L, Hematocrit 27.5L , Mean Corpuscular Volume 78L, Mean Corpuscular Hemoglobin 24.4L, Mean Corpuscular Hemoglobin Concent 31.2L, Red Cell Distribution Width 17.4H, Platelet Count 127L, Mean Platelet Volume 7.8, Neutrophils (%) (Auto) 47.8, Lymphocytes (%) (Auto) 27.7, Monocytes (%) (Auto) 18.8H, Eosinophils (%) (Auto) 4.7H, Basophils (%) (Auto) 1.1, Sodium Level [Pending], Potassium Level [Pending ], Chloride Level [Pending], Carbon Dioxide Level [Pending], Blood Urea Nitrogen [Pending], Creatinine [Pending], Estimat Glomerular Filtration Rate [ Pending], Glucose Level [Pending], Hemoglobin A1c [Pending], Uric Acid [Pending] , Calcium Level [Pending], Phosphorus Level [Pending], Magnesium Level [Pending] , Iron Level [Pending], Unsaturated Iron Binding [Pending], Ferritin [Pending], Total Bilirubin [Pending], Gamma Glutamyl Transpeptidase [Pending], Aspartate Amino Transf (AST/SGOT) [Pending], Alanine Aminotransferase (ALT/SGPT) [Pending] , Alkaline Phosphatase [Pending], Total Creatine Kinase [Pending], C-Reactive Protein, Quantitative [Pending], Pro-B-Type Natriuretic Peptide [Pending], Total Protein [Pending], Albumin [Pending], Globulin [Pending], Triglycerides Level [Pending], Cholesterol Level [Pending], LDL Cholesterol [Pending], HDL Cholesterol [Pending], Cholesterol/HDL Ratio [Pending], Vitamin B12 Level [ Pending], Folate [Pending], Thyroid Stimulating Hormone (TSH) [Pending] Height (Feet): 5 Height (Inches): 5.00 Weight (Pounds): 278 General Appearance: lethargic EENT: normal ENT inspection Neck: normal alignment Cardiovascular: normal peripheral pulses, normal rate, regular rhythm Respiratory/Chest: chest wall non-tender, lungs clear, normal breath sounds Abdomen: normal bowel sounds, non tender, soft Extremities: normal inspection Edema: no edema noted Arm (L), no edema noted Arm (R), no edema noted Leg (L), no edema noted Leg (R), no edema noted Pedal (L), no edema noted Pedal (R), no edema noted Generalized Neurologic: motor weakness Skin: normal pigmentation, warm/dry Roderick Henning DO Oct 16, 2019 13:32
--- NOTE | 2019-10-16 13:46 | Infectious Diseases Prog Note ---
Assessment/Plan Assessment/Plan HPI: 64yo woman with PMH below presents with few days of dysuria, frequency, suprapubic pain. Pt states that she gets UTIs often and she knows she has a UTI. Reports bilateral flank pain. Denies fever, chills, nausea, vomiting, cough , sore throat, chest pain, diarrhea. Reports orthopnea. Pt states that [facility] was giving her PO antibiotics twice a day but her symptoms did not improve. Spoke to Tequila at [facility] and no record of recent antibiotics. 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 [facility] will continue to follow the patient with you. Subjective Allergies: Coded Allergies: NO KNOWN ALLERGIES (Unverified Allergy, Unknown, 10/15/15) Subjective Afebrile. RA. Leukopenia Episode of hypoglycemia Objective Vital Signs Last 24 Hour Vital Signs Date Time Temp Pulse Resp B/P (MAP) Pulse Ox O2 Delivery O2 Flow Rate FiO2 10/16/19 12:00 98.1 63 18 137/76 (96) 95 10/16/19 11:45 60 20 97 Room Air 21 10/16/19 09:14 61 144/77 10/16/19 09:00 Room Air 10/16/19 08:00 98.6 61 18 144/77 (99) 95 10/16/19 04:00 97.0 61 20 134/68 (90) 98 10/16/19 00:00 97.3 62 20 120/88 (99) 96 10/15/19 21:00 Room Air 10/15/19 20:00 96.6 61 20 158/75 (102) 100 10/15/19 16:00 97.0 60 20 142/87 (105) 96 Height (Feet): 5 Height (Inches): 5.00 Weight (Pounds): 278 Objective Gen: NAD. hard of hearing. HEENT: Anicteric sclera. No oral thrush CV: RRR. no murmurs or rubs. Resp: CTAB. RRR. no wheezes or crackles. Abd: normoactive BS+. Soft. suprapubic tenderness. Back: bilateral flank pain Neuro: alert. interactive Skin: warm. dry. Microbiology Date/Time Source Procedure Growth Status 10/15/19 03:04 Urine,Clean Catch Urine Culture - Preliminary Gram Negative Lexx Resulted 10/15/19 21:38 Rectum Received Laboratory Tests Test 10/16/19 12:30 10/16/19 12:40 Hepatitis B Surface Antigen Pending White Blood Count 4.7 K/UL (4.8-10.8) L Red Blood Count 3.52 M/UL (4.20-5.40) L Hemoglobin 8.6 G/DL (12.0-16.0) L Hematocrit 27.5 % (37.0-47.0) L Mean Corpuscular Volume 78 FL (80-99) L Mean Corpuscular Hemoglobin 24.4 PG (27.0-31.0) L Mean Corpuscular Hemoglobin Concent 31.2 G/DL (32.0-36.0) L Red Cell Distribution Width 17.4 % (11.6-14.8) H Platelet Count 127 K/UL (150-450) L Mean Platelet Volume 7.8 FL (6.5-10.1) Neutrophils (%) (Auto) 47.8 % (45.0-75.0) Lymphocytes (%) (Auto) 27.7 % (20.0-45.0) Monocytes (%) (Auto) 18.8 % (1.0-10.0) H Eosinophils (%) (Auto) 4.7 % (0.0-3.0) H Basophils (%) (Auto) 1.1 % (0.0-2.0) Sodium Level Pending Potassium Level Pending Chloride Level Pending Carbon Dioxide Level Pending Blood Urea Nitrogen Pending Creatinine Pending Estimat Glomerular Filtration Rate Pending Glucose Level Pending Hemoglobin A1c 5.9 % (4.3-6.0) Uric Acid Pending Calcium Level Pending Phosphorus Level Pending Magnesium Level Pending Iron Level Pending Unsaturated Iron Binding Pending Ferritin Pending Total Bilirubin Pending Gamma Glutamyl Transpeptidase Pending Aspartate Amino Transf (AST/SGOT) Pending Alanine Aminotransferase (ALT/SGPT) Pending Alkaline Phosphatase Pending Total Creatine Kinase Pending C-Reactive Protein, Quantitative Pending Pro-B-Type Natriuretic Peptide Pending Total Protein Pending Albumin Pending Globulin Pending Triglycerides Level Pending Cholesterol Level Pending LDL Cholesterol Pending HDL Cholesterol Pending Cholesterol/HDL Ratio Pending Vitamin B12 Level Pending Folate Pending Thyroid Stimulating Hormone (TSH) Pending Current Medications Medications (Trade) Dose Ordered Sig/Josi Route PRN Reason Start Time Stop Time Status Last Admin Dose Admin Acetaminophen (Tylenol) 650 mg Q4H PRN ORAL Mild Pain/Temp > 100.5 10/15/19 08:15 11/14/19 08:14 Amlodipine Besylate (Norvasc) 10 mg DAILY ORAL 10/16/19 09:00 11/14/19 08:59 10/16/19 09:14 Atorvastatin Calcium (Lipitor) 10 mg BEDTIME ORAL 10/15/19 21:00 11/14/19 20:59 10/15/19 20:46 Ceftriaxone Sodium 1 gm/ Dextrose 55 ml @ 110 mls/hr Q24H IVPB 10/16/19 12:00 10/23/19 11:59 10/16/19 11:55 Clonidine HCl (Catapres Tab) 0.1 mg Q4H PRN ORAL SBP>160mmHg 10/15/19 08:15 11/14/19 08:14 Dextrose (Dextrose 50%) 25 ml Q30M PRN IV Hypoglycemia 10/15/19 08:30 11/14/19 08:23 Dextrose (Dextrose 50%) 50 ml Q30M PRN IV hypoglycemia 10/15/19 08:30 11/14/19 08:29 10/16/19 06:36 Diphenhydramine HCl (Benadryl) 50 mg Q6H PRN ORAL Itching 10/15/19 08:15 11/14/19 08:14 Docusate Sodium (Colace) 100 mg TID ORAL 10/15/19 13:00 11/14/19 08:59 10/16/19 13:22 Epoetin Jose De Jesus (Epoetin Jose De Jesus(ESRD on dialysis)) 10,000 unit SUN-SUN-SUN SUBQ 10/15/19 21:00 11/14/19 20:59 10/15/19 20:50 Gabapentin (Neurontin) 300 mg DAILY ORAL 10/15/19 09:00 11/14/19 08:59 10/16/19 09:13 Heparin Sodium (Porcine) (Heparin 5000 units/ml) 5,000 units EVERY 12 HOURS SUBQ 10/16/19 09:00 11/15/19 08:59 10/16/19 09:19 Hydromorphone HCl (Dilaudid) 0.5 mg Q6H PRN IVP SEVERE BREAKTHROUGH PAIN 10/15/19 08:30 10/22/19 08:14 Insulin Aspart (NovoLOG) BEFORE MEALS AND HS SUBQ 10/15/19 11:30 11/14/19 11:29 10/16/19 11:54 Insulin Detemir (Levemir) 8 units DAILY SUBQ 10/15/19 10:00 11/14/19 09:59 10/16/19 09:16 Ipratropium [place] (Atrovent) 500 mcg Q4H PRN HHN Shortness of Breath 10/15/19 08:15 10/20/19 08:14 Iron Sucrose 100 mg/Sodium Chloride 60 ml @ 240 mls/hr BEDTIME IV 10/16/19 21:00 10/20/19 21:14 Lorazepam (Ativan) 1 mg Q6H PRN ORAL For Anxiety 10/15/19 08:15 10/22/19 08:14 Morphine Sulfate (Morphine Sulfate) 2 mg Q4H PRN IVP Severe Pain (Pain Scale 7-10) 10/15/19 08:15 10/22/19 08:14 10/16/19 00:34 Pantoprazole (Protonix) 40 mg DAILY ORAL 10/17/19 09:00 11/14/19 08:59 Polyethylene Glycol (Miralax) 17 gm BEDTIME ORAL 10/15/19 21:00 11/14/19 20:59 10/15/19 20:45 Polyethylene Glycol (Miralax) 17 gm DAILYPRN PRN ORAL Constipation 10/15/19 08:15 11/14/19 08:14 Pyridoxine HCl (Vitamin B6) 50 mg DAILY ORAL 10/15/19 10:00 11/14/19 09:59 10/16/19 09:12 Sitagliptin Phosphate (Januvia) 25 mg DAILY ORAL 10/15/19 10:00 11/14/19 09:59 10/16/19 09:13 Thiamine HCl (Vitamin B1) 100 mg DAILY ORAL 10/15/19 09:00 11/14/19 08:59 10/16/19 09:13 Zolpidem Tartrate (Ambien) 5 mg HSPRN PRN ORAL Insomnia 10/15/19 21:00 10/22/19 20:59 Clarice Nicolas MD Oct 16, 2019 13:46
[2019-10-16 14:16] LABS: ALANINE AMINOTRANSFERASE 48 U/L (12-78); ALBUMIN 4.2 G/DL (3.4-5.0); ALKALINE PHOSPHATASE 391 U/L (46-116); ANION GAP 12 mmol/L (5-15); ASPARTATE AMINO TRANSFERASE 33 U/L (15-37); BILIRUBIN,TOTAL 0.8 MG/DL (0.2-1.0); BLOOD UREA NITROGEN 64 mg/dL (7-18); CARBON DIOXIDE 32 MMOL/L (21-32); CHLORIDE 92 MMOL/L (98-107); CHOLESTEROL 111 MG/DL (< 200); CREATINE KINASE 125 U/L (26-308); GAMMA GLUTAMYL TRANSPEPTIDASE 448 U/L (5-85); HDL CHOLESTEROL 4 MG/DL (40-60); POTASSIUM 5.6 MMOL/L (3.5-5.1); SODIUM 136 MMOL/L (136-145); TRIGLYCERIDES 39 MG/DL (30-150)
[2019-10-16 14:20] LABS: % IRON SATURATION 19 % (15-50); IRON 49 ug/dL (50-175); TOTAL IRON BINDING CAPACITY 252 ug/dL (250-450)
[2019-10-16 14:43] LABS: CALCIUM 9.1 MG/DL (8.5-10.1); CREATININE 6.7 MG/DL (0.55-1.30); FERRITIN 1285 NG/ML (8-388)
[2019-10-16 16:00] VITALS: BP 154/90
--- NOTE | 2019-10-16 17:06 | Cardiology Report ---
APPROVED REPORT EKG Measurement Heart [id number] Atrial Pacemaker Rightward axis Low voltage QRS Septal infarct, age undetermined Abnormal ECG
[2019-10-16] MEDS ORDERED: Heparin1,000 units/500ml Premix(Conc:2 units/ml) IV PRN (17:30)
[2019-10-16] MEDS ORDERED: Lidocaine 1% Plain 30 ml INJ PRN (17:30)
[2019-10-16 20:00] VITALS: BP 159/84
[2019-10-16] MEDS: Dyna-Hex 2% Top Sol 2oz TOPIC SCH (20:00)
[2019-10-16] MEDS ORDERED: Morphine Sulfate 2mg/ml Inj(IV/IM USE ONLY) IM PRN ×2 (20:01→20:05)
[2019-10-16] MEDS: Iron Sucrose 100 MG in NS 55 ML IV SCH (20:11)
[2019-10-16] MEDS: Miralax 17gm pkt ORAL SCH (20:50)
[2019-10-17] VITALS: BP 159/87
[2019-10-17 04:00] VITALS: BP 139/67
[2019-10-17] MEDS: Insulin NovoLOG Flexpen S/S (insulin sensitive) SUBQ SCH ×4 (06:08→21:06)
[2019-10-17 06:27] LABS: EOSINOPHILS % (AUTO) 4.1 % (0.0-3.0); HEMATOCRIT 28.8 % (37.0-47.0); LYMPHOCYTES % (AUTO) 25.2 % (20.0-45.0); MEAN CORPUSCULAR VOLUME 79 FL (80-99); MONOCYTES % (AUTO) 14.5 % (1.0-10.0); NEUTROPHILS % (AUTO) 55.3 % (45.0-75.0); PLATELET COUNT 133 K/UL (150-450); RED BLOOD COUNT 3.64 M/UL (4.20-5.40); RED CELL DISTRIBUTION WIDTH 16.9 % (11.6-14.8); WHITE BLOOD COUNT 5.6 K/UL (4.8-10.8)
[2019-10-17 07:35] LABS: ALANINE AMINOTRANSFERASE 45 U/L (12-78); ALBUMIN 4.2 G/DL (3.4-5.0); ALBUMIN/GLOBULIN RATIO 0.9 (1.0-2.7); ALKALINE PHOSPHATASE 393 U/L (46-116); ANION GAP 4 mmol/L (5-15); ASPARTATE AMINO TRANSFERASE 32 U/L (15-37); BILIRUBIN,TOTAL 0.8 MG/DL (0.2-1.0); BLOOD UREA NITROGEN 58 mg/dL (7-18); CALCIUM 8.6 MG/DL (8.5-10.1); CARBON DIOXIDE 35 MMOL/L (21-32); CHLORIDE 93 MMOL/L (98-107); CREATININE 6.4 MG/DL (0.55-1.30); POTASSIUM 5.6 MMOL/L (3.5-5.1); SODIUM 132 MMOL/L (136-145)
[2019-10-17 08:00] VITALS: BP 162/93
[2019-10-17] MEDS ORDERED: Sodium Polystyrene Sulfonate 15gm Powder ORAL SCH (08:30)
[2019-10-17] MEDS: Levemir Flexpen SUBQ SCH (09:00)
[2019-10-17] MEDS: Heparin 5000 units/ml inj SUBQ SCH ×2 (09:00→21:00)
--- NOTE | 2019-10-17 09:16 | General Progress Note ---
Assessment/Plan Problem List: (1) Abdominal pain ICD Codes: R10.9 - Unspecified abdominal pain SNOMED: 48958048 (2) Congestive heart failure (CHF) ICD Codes: I50.9 - Heart failure, unspecified SNOMED: 96573077 (3) Back pain ICD Codes: M54.9 - Dorsalgia, unspecified SNOMED: 549588867 (4) General weakness ICD Codes: R53.1 - Weakness SNOMED: 75809046 (5) ESRD (end stage renal disease) on dialysis ICD Codes: N18.6 - End stage renal disease; Z99.2 - Dependence on renal dialysis SNOMED: 443832320 (6) Diabetes mellitus type 2 with neurological manifestations ICD Codes: E11.49 - Type 2 diabetes mellitus with other diabetic neurological complication SNOMED: 96476145, 230453135 (7) UTI (urinary tract infection) ICD Codes: N39.0 - Urinary tract infection, site not specified SNOMED: 63408470 (8) Anemia ICD Codes: D64.9 - Anemia, unspecified SNOMED: 260809419 Status: unchanged Assessment/Plan: pt diet abx pain control dialysis cbc bmp am Subjective Constitutional: Reports: weakness Allergies: Coded Allergies: NO KNOWN ALLERGIES (Unverified Allergy, Unknown, 10/15/15) All Systems: reviewed and negative except above Subjective sleepy calm getting dialysis Objective Last 24 Hour Vital Signs Date Time Temp Pulse Resp B/P (MAP) Pulse Ox O2 Delivery O2 Flow Rate FiO2 10/17/19 08:20 61 18 96 Room Air 21 10/17/19 08:00 98.0 60 20 162/93 (116) 95 10/17/19 04:00 97.8 65 20 139/67 (91) 96 10/17/19 00:00 96.6 63 20 159/87 (111) 99 10/16/19 21:00 Room Air 10/16/19 20:12 59 18 98 Room Air 21 10/16/19 20:00 97.0 60 19 159/84 (109) 98 10/16/19 16:00 97.0 57 19 154/90 (111) 98 10/16/19 12:00 98.1 63 18 137/76 (96) 95 10/16/19 11:45 60 20 97 Room Air 21 Intake and Output 10/16/19 10/17/19 19:00 07:00 Intake Total 655 ml Output Total 2000 ml Balance -1345 ml IV Total 55 ml Other 600 ml Output Hemodialysis UF 2000 ml Laboratory Tests 10/16/19 12:30: Hepatitis B Surface Antigen Negative 10/16/19 12:40: White Blood Count 4.7L, Red Blood Count 3.52L, Hemoglobin 8.6L, Hematocrit 27.5L , Mean Corpuscular Volume 78L, Mean Corpuscular Hemoglobin 24.4L, Mean Corpuscular Hemoglobin Concent 31.2L, Red Cell Distribution Width 17.4H, Platelet Count 127L, Mean Platelet Volume 7.8, Neutrophils (%) (Auto) 47.8, Lymphocytes (%) (Auto) 27.7, Monocytes (%) (Auto) 18.8H, Eosinophils (%) (Auto) 4.7H, Basophils (%) (Auto) 1.1, Sodium Level 136, Potassium Level 5.6H, Chloride Level 92L, Carbon Dioxide Level 32, Anion Gap 12, Blood Urea Nitrogen 64H, Creatinine 6.7H, Estimat Glomerular Filtration Rate 7.5, Glucose Level 131H , Hemoglobin A1c 5.9, Uric Acid 4.0, Calcium Level 9.1, Phosphorus Level 6.0H, Magnesium Level 2.9H, Iron Level 49L, Total Iron Binding Capacity 252, Percent Iron Saturation 19, Unsaturated Iron Binding 203, Ferritin 1285H, Total Bilirubin 0.8, Gamma Glutamyl Transpeptidase 448H, Aspartate Amino Transf (AST/ SGOT) 33, Alanine Aminotransferase (ALT/SGPT) 48, Alkaline Phosphatase 391H, Total Creatine Kinase 125, C-Reactive Protein, Quantitative 1.9H, Pro-B-Type Natriuretic Peptide 50854I, Total Protein 8.6H, Albumin 4.2, Globulin 4.4, Albumin/Globulin Ratio 1.0, Triglycerides Level 39, Cholesterol Level 111, LDL Cholesterol 26, HDL Cholesterol 4L, Cholesterol/HDL Ratio 27.8H, Vitamin B12 Level 1191H, Folate 23.3, Thyroid Stimulating Hormone (TSH) 1.685 10/17/19 05:30: White Blood Count 5.6, Red Blood Count 3.64L, Hemoglobin 9.0L, Hematocrit 28.8L , Mean Corpuscular Volume 79L, Mean Corpuscular Hemoglobin 24.6L, Mean Corpuscular Hemoglobin Concent 31.1L, Red Cell Distribution Width 16.9H, Platelet Count 133L, Mean Platelet Volume 7.1, Neutrophils (%) (Auto) 55.3, Lymphocytes (%) (Auto) 25.2, Monocytes (%) (Auto) 14.5H, Eosinophils (%) (Auto) 4.1H, Basophils (%) (Auto) 1.0, Sodium Level 132L, Potassium Level 5.6H, Chloride Level 93L, Carbon Dioxide Level 35H, Anion Gap 4L, Blood Urea Nitrogen 58H, Creatinine 6.4H, Estimat Glomerular Filtration Rate 8.0, Glucose Level 182H , Calcium Level 8.6, Total Bilirubin 0.8, Aspartate Amino Transf (AST/SGOT) 32, Alanine Aminotransferase (ALT/SGPT) 45, Alkaline Phosphatase 393H, Total Protein 8.7H, Albumin 4.2, Globulin 4.5, Albumin/Globulin Ratio 0.9L Height (Feet): 5 Height (Inches): 5.00 Weight (Pounds): 278 General Appearance: lethargic EENT: normal ENT inspection Neck: normal alignment Cardiovascular: normal peripheral pulses, normal rate, regular rhythm Respiratory/Chest: chest wall non-tender, decreased breath sounds Abdomen: normal bowel sounds, non tender, soft Extremities: normal inspection Edema: no edema noted Arm (L), no edema noted Arm (R), no edema noted Leg (L), no edema noted Leg (R), no edema noted Pedal (L), no edema noted Pedal (R), no edema noted Generalized Neurologic: motor weakness Skin: normal pigmentation, warm/dry Roderick Henning DO Oct 17, 2019 09:16
[2019-10-17] MEDS: sitaGLIPtin 25mg tab ORAL SCH (09:28)
[2019-10-17] MEDS: Pyridoxine 50mg tab ORAL SCH (09:28)
[2019-10-17] MEDS: Thiamine 100mg tab ORAL SCH (09:28)
[2019-10-17] MEDS: Docusate 100mg cap ORAL SCH ×3 (09:29→17:40)
--- NOTE | 2019-10-17 10:09 | General Progress Note ---
Assessment/Plan Status: unchanged Assessment/Plan: GI: Plan Problems: (1) Intractable abdominal pain (2) Anemia (3) Patient is Zoroastrianism (4) Iron deficiency (5) Morbid obesity (6) Blindness of both eyes Plan Lipase within normal limits History of endoscopy September 2018, noted with mild chronic gastritis Will consider abdominal pelvic CT patient has persistent abdominal pain No plans for any GI procedures at this time iv iron bowel regimen Advance diet as tolerated Pain management Bowel regimen of Colace plus MiraLAX Zofran as needed PPI IV and p.o. hydration We will follow along on a daily basis with additional recommendations going for picc line today . Thank you for this patient referral, we will follow. Subjective ROS Limited/Unobtainable: Yes Allergies: Coded Allergies: NO KNOWN ALLERGIES (Unverified Allergy, Unknown, 10/15/15) Objective Last 24 Hour Vital Signs Date Time Temp Pulse Resp B/P (MAP) Pulse Ox O2 Delivery O2 Flow Rate FiO2 10/17/19 09:29 61 162/93 10/17/19 08:20 61 18 96 Room Air 21 10/17/19 08:00 98.0 60 20 162/93 (116) 95 10/17/19 04:00 97.8 65 20 139/67 (91) 96 10/17/19 00:00 96.6 63 20 159/87 (111) 99 10/16/19 21:00 Room Air 10/16/19 20:12 59 18 98 Room Air 21 10/16/19 20:00 97.0 60 19 159/84 (109) 98 10/16/19 16:00 97.0 57 19 154/90 (111) 98 10/16/19 12:00 98.1 63 18 137/76 (96) 95 10/16/19 11:45 60 20 97 Room Air 21 Intake and Output 10/16/19 10/17/19 19:00 07:00 Intake Total 655 ml Output Total 2000 ml Balance -1345 ml IV Total 55 ml Other 600 ml Output Hemodialysis UF 2000 ml Laboratory Tests 10/16/19 12:30: Hepatitis B Surface Antigen Negative 10/16/19 12:40: White Blood Count 4.7L, Red Blood Count 3.52L, Hemoglobin 8.6L, Hematocrit 27.5L , Mean Corpuscular Volume 78L, Mean Corpuscular Hemoglobin 24.4L, Mean Corpuscular Hemoglobin Concent 31.2L, Red Cell Distribution Width 17.4H, Platelet Count 127L, Mean Platelet Volume 7.8, Neutrophils (%) (Auto) 47.8, Lymphocytes (%) (Auto) 27.7, Monocytes (%) (Auto) 18.8H, Eosinophils (%) (Auto) 4.7H, Basophils (%) (Auto) 1.1, Sodium Level 136, Potassium Level 5.6H, Chloride Level 92L, Carbon Dioxide Level 32, Anion Gap 12, Blood Urea Nitrogen 64H, Creatinine 6.7H, Estimat Glomerular Filtration Rate 7.5, Glucose Level 131H , Hemoglobin A1c 5.9, Uric Acid 4.0, Calcium Level 9.1, Phosphorus Level 6.0H, Magnesium Level 2.9H, Iron Level 49L, Total Iron Binding Capacity 252, Percent Iron Saturation 19, Unsaturated Iron Binding 203, Ferritin 1285H, Total Bilirubin 0.8, Gamma Glutamyl Transpeptidase 448H, Aspartate Amino Transf (AST/ SGOT) 33, Alanine Aminotransferase (ALT/SGPT) 48, Alkaline Phosphatase 391H, Total Creatine Kinase 125, C-Reactive Protein, Quantitative 1.9H, Pro-B-Type Natriuretic Peptide 36141V, Total Protein 8.6H, Albumin 4.2, Globulin 4.4, Albumin/Globulin Ratio 1.0, Triglycerides Level 39, Cholesterol Level 111, LDL Cholesterol 26, HDL Cholesterol 4L, Cholesterol/HDL Ratio 27.8H, Vitamin B12 Level 1191H, Folate 23.3, Thyroid Stimulating Hormone (TSH) 1.685 10/17/19 05:30: White Blood Count 5.6, Red Blood Count 3.64L, Hemoglobin 9.0L, Hematocrit 28.8L , Mean Corpuscular Volume 79L, Mean Corpuscular Hemoglobin 24.6L, Mean Corpuscular Hemoglobin Concent 31.1L, Red Cell Distribution Width 16.9H, Platelet Count 133L, Mean Platelet Volume 7.1, Neutrophils (%) (Auto) 55.3, Lymphocytes (%) (Auto) 25.2, Monocytes (%) (Auto) 14.5H, Eosinophils (%) (Auto) 4.1H, Basophils (%) (Auto) 1.0, Sodium Level 132L, Potassium Level 5.6H, Chloride Level 93L, Carbon Dioxide Level 35H, Anion Gap 4L, Blood Urea Nitrogen 58H, Creatinine 6.4H, Estimat Glomerular Filtration Rate 8.0, Glucose Level 182H , Calcium Level 8.6, Total Bilirubin 0.8, Aspartate Amino Transf (AST/SGOT) 32, Alanine Aminotransferase (ALT/SGPT) 45, Alkaline Phosphatase 393H, Total Protein 8.7H, Albumin 4.2, Globulin 4.5, Albumin/Globulin Ratio 0.9L Height (Feet): 5 Height (Inches): 5.00 Weight (Pounds): 278 General Appearance: alert EENT: normal ENT inspection Neck: supple Cardiovascular: normal rate Respiratory/Chest: decreased breath sounds Abdomen: normal bowel sounds, non tender, soft Extremities: non-tender Jamison Garcia MD Oct 17, 2019 10:09
--- NOTE | 2019-10-17 11:32 | Pre-Procedure Note/Attestation ---
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 I attest that, if there was a reasonable possibility of needing a blood transfusion, the patient (or the patient's legal loan servicing representative) was given the [facility] standardized written summary, pursuant to the Benji Kandi Blood Safety Act ([place] Health and Safety Code # 1645, as amended). I attest that I re-evaluated the patient just prior to the surgery and that there has been no change in the patient's H&P, except as documented below: Bhanu Robles MD Oct 17, 2019 11:32
--- NOTE | 2019-10-17 11:33 | Brief Operative Note ---
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
--- NOTE | 2019-10-17 11:49 | Infectious Diseases Prog Note ---
Assessment/Plan Assessment/Plan 64yo woman with PMH below presents with few days of dysuria, frequency, suprapubic pain. Pt states that she gets UTIs often and she knows she has a UTI. Reports bilateral flank pain. Denies fever, chills, nausea, vomiting, cough , sore throat, chest pain, diarrhea. Reports orthopnea. Pt states that [facility] was giving her PO antibiotics twice a day but her symptoms did not improve. Spoke to Tequila at [facility] and no record of recent antibiotics. Afebrile Nontachycardic RA No leukocytosis UTI UA with WBC TNTC UCx: >100K GNR r/o bacteremia BCx: ngtd ESRD on HD DM2 b/l eye blindness CHF bradycardia 2ry hyperparathyroidism CAD s/p stent AOCD s/p AVG w recent rupture HTN morbid obesity h/o R foot cellulitis h/o pancreatitis Plan: continue Ceftriaxone #3, no history of MDR infections per [facility] records f/u bcx f/u ucx aspiration precaution, elevate HOB, skin care Agree with CT Abd/pelvis per GI if pain does not improve Thank you for this consult. [facility] will continue to follow the patient with you. Subjective Allergies: Coded Allergies: NO KNOWN ALLERGIES (Unverified Allergy, Unknown, 10/15/15) Subjective Afebrile. RA. Normal WBC Still with lower abdominal pain. No diarrhea. Feels constipated. Objective Vital Signs Last 24 Hour Vital Signs Date Time Temp Pulse Resp B/P (MAP) Pulse Ox O2 Delivery O2 Flow Rate FiO2 10/17/19 09:29 61 162/93 10/17/19 08:20 61 18 96 Room Air 21 10/17/19 08:00 98.0 60 20 162/93 (116) 95 10/17/19 04:00 97.8 65 20 139/67 (91) 96 10/17/19 00:00 96.6 63 20 159/87 (111) 99 10/16/19 21:00 Room Air 10/16/19 20:12 59 18 98 Room Air 21 10/16/19 20:00 97.0 60 19 159/84 (109) 98 10/16/19 16:00 97.0 57 19 154/90 (111) 98 10/16/19 12:00 98.1 63 18 137/76 (96) 95 Height (Feet): 5 Height (Inches): 5.00 Weight (Pounds): 278 Objective Gen: NAD. hard of hearing. HEENT: Anicteric sclera. No oral thrush CV: RRR. no murmurs or rubs. Resp: CTAB. RRR. no wheezes or crackles. Abd: normoactive BS+. Soft. suprapubic tenderness. Back: bilateral flank pain Neuro: alert. interactive Skin: warm. dry. Microbiology Date/Time Source Procedure Growth Status 10/15/19 18:15 Blood Blood Culture - Preliminary NO GROWTH AFTER 24 HOURS Resulted 10/15/19 18:00 Blood Blood Culture - Preliminary NO GROWTH AFTER 24 HOURS Resulted 10/15/19 03:04 Urine,Clean Catch Urine Culture - Preliminary Gram Negative Lexx Resulted 10/15/19 21:38 Rectum Received Laboratory Tests Test 10/16/19 12:30 10/16/19 12:40 10/17/19 05:30 Hepatitis B Surface Antigen Negative (Negative) White Blood Count 4.7 K/UL (4.8-10.8) L 5.6 K/UL (4.8-10.8) Red Blood Count 3.52 M/UL (4.20-5.40) L 3.64 M/UL (4.20-5.40) L Hemoglobin 8.6 G/DL (12.0-16.0) L 9.0 G/DL (12.0-16.0) L Hematocrit 27.5 % (37.0-47.0) L 28.8 % (37.0-47.0) L Mean Corpuscular Volume 78 FL (80-99) L 79 FL (80-99) L Mean Corpuscular Hemoglobin 24.4 PG (27.0-31.0) L 24.6 PG (27.0-31.0) L Mean Corpuscular Hemoglobin Concent 31.2 G/DL (32.0-36.0) L 31.1 G/DL (32.0-36.0) L Red Cell Distribution Width 17.4 % (11.6-14.8) H 16.9 % (11.6-14.8) H Platelet Count 127 K/UL (150-450) L 133 K/UL (150-450) L Mean Platelet Volume 7.8 FL (6.5-10.1) 7.1 FL (6.5-10.1) Neutrophils (%) (Auto) 47.8 % (45.0-75.0) 55.3 % (45.0-75.0) Lymphocytes (%) (Auto) 27.7 % (20.0-45.0) 25.2 % (20.0-45.0) Monocytes (%) (Auto) 18.8 % (1.0-10.0) H 14.5 % (1.0-10.0) H Eosinophils (%) (Auto) 4.7 % (0.0-3.0) H 4.1 % (0.0-3.0) H Basophils (%) (Auto) 1.1 % (0.0-2.0) 1.0 % (0.0-2.0) Sodium Level 136 MMOL/L (136-145) 132 MMOL/L (136-145) L Potassium Level 5.6 MMOL/L (3.5-5.1) H 5.6 MMOL/L (3.5-5.1) H Chloride Level 92 MMOL/L (98-107) L 93 MMOL/L (98-107) L Carbon Dioxide Level 32 MMOL/L (21-32) 35 MMOL/L (21-32) H Anion Gap 12 mmol/L (5-15) 4 mmol/L (5-15) L Blood Urea Nitrogen 64 mg/dL (7-18) H 58 mg/dL (7-18) H Creatinine 6.7 MG/DL (0.55-1.30) H 6.4 MG/DL (0.55-1.30) H Estimat Glomerular Filtration Rate 7.5 mL/min (>60) 8.0 mL/min (>60) Glucose Level 131 MG/DL (74-106) H 182 MG/DL (74-106) H Hemoglobin A1c 5.9 % (4.3-6.0) Uric Acid 4.0 MG/DL (2.6-7.2) Calcium Level 9.1 MG/DL (8.5-10.1) 8.6 MG/DL (8.5-10.1) Phosphorus Level 6.0 MG/DL (2.5-4.9) H Magnesium Level 2.9 MG/DL (1.8-2.4) H Iron Level 49 ug/dL (50-175) L Total Iron Binding Capacity 252 ug/dL (250-450) Percent Iron Saturation 19 % (15-50) Unsaturated Iron Binding 203 ug/dL (112-346) Ferritin 1285 NG/ML (8-388) H Total Bilirubin 0.8 MG/DL (0.2-1.0) 0.8 MG/DL (0.2-1.0) Gamma Glutamyl Transpeptidase 448 U/L (5-85) H Aspartate Amino Transf (AST/SGOT) 33 U/L (15-37) 32 U/L (15-37) Alanine Aminotransferase (ALT/SGPT) 48 U/L (12-78) 45 U/L (12-78) Alkaline Phosphatase 391 U/L (46-116) H 393 U/L (46-116) H Total Creatine Kinase 125 U/L (26-308) C-Reactive Protein, Quantitative 1.9 mg/dL (0.00-0.90) H Pro-B-Type Natriuretic Peptide 00489 pg/mL (0-125) H Total Protein 8.6 G/DL (6.4-8.2) H 8.7 G/DL (6.4-8.2) H Albumin 4.2 G/DL (3.4-5.0) 4.2 G/DL (3.4-5.0) Globulin 4.4 g/dL 4.5 g/dL Albumin/Globulin Ratio 1.0 (1.0-2.7) 0.9 (1.0-2.7) L Triglycerides Level 39 MG/DL (30-150) Cholesterol Level 111 MG/DL (< 200) LDL Cholesterol 26 mg/dL (<100) HDL Cholesterol 4 MG/DL (40-60) L Cholesterol/HDL Ratio 27.8 (3.3-4.4) H Vitamin B12 Level 1191 PG/ML (193-986) H Folate 23.3 NG/ML (8.6-58.9) Thyroid Stimulating Hormone (TSH) 1.685 uiU/mL (0.358-3.740) Current Medications Medications (Trade) Dose Ordered Sig/Josi Route PRN Reason Start Time Stop Time Status Last Admin Dose Admin Acetaminophen (Tylenol) 650 mg Q4H PRN ORAL Mild Pain/Temp > 100.5 10/15/19 08:15 11/14/19 08:14 Amlodipine Besylate (Norvasc) 10 mg DAILY ORAL 10/16/19 09:00 11/14/19 08:59 10/17/19 09:29 Atorvastatin Calcium (Lipitor) 10 mg BEDTIME ORAL 10/15/19 21:00 11/14/19 20:59 10/16/19 20:50 Ceftriaxone Sodium 1 gm/ Dextrose 55 ml @ 110 mls/hr Q24H IVPB 10/16/19 12:00 10/23/19 11:59 10/16/19 11:55 Chlorhexidine Gluconate (Jenny-Hex 2%) 1 applic DAILY@2000 TOPIC 10/16/19 20:00 11/15/19 19:59 Clonidine HCl (Catapres Tab) 0.1 mg Q4H PRN ORAL SBP>160mmHg 10/15/19 08:15 11/14/19 08:14 Dextrose (Dextrose 50%) 25 ml Q30M PRN IV Hypoglycemia 10/15/19 08:30 11/14/19 08:23 Dextrose (Dextrose 50%) 50 ml Q30M PRN IV hypoglycemia 10/15/19 08:30 11/14/19 08:29 10/16/19 15:32 Diphenhydramine HCl (Benadryl) 50 mg Q6H PRN ORAL Itching 10/15/19 08:15 11/14/19 08:14 Docusate Sodium (Colace) 100 mg TID ORAL 10/15/19 13:00 11/14/19 08:59 10/17/19 09:29 Epoetin Jose De Jesus (Epoetin Jose De Jesus(ESRD on dialysis)) 10,000 unit SUN-SUN-SUN SUBQ 10/15/19 21:00 11/14/19 20:59 10/15/19 20:50 Gabapentin (Neurontin) 300 mg DAILY ORAL 10/15/19 09:00 11/14/19 08:59 10/17/19 09:28 Heparin Sodium (Porcine) (Heparin 5000 units/ml) 5,000 units EVERY 12 HOURS SUBQ 10/16/19 09:00 11/15/19 08:59 10/16/19 09:19 Hydromorphone HCl (Dilaudid) 0.5 mg Q6H PRN IVP SEVERE BREAKTHROUGH PAIN 10/15/19 08:30 10/22/19 08:14 Insulin Aspart (NovoLOG) BEFORE MEALS AND HS SUBQ 10/15/19 11:30 11/14/19 11:29 10/17/19 06:08 Insulin Detemir (Levemir) 8 units DAILY SUBQ 10/15/19 10:00 11/14/19 09:59 10/16/19 09:16 Ipratropium [place] (Atrovent) 500 mcg Q4H PRN HHN Shortness of Breath 10/15/19 08:15 10/20/19 08:14 Iron Sucrose 100 mg/Sodium Chloride 60 ml @ 240 mls/hr BEDTIME IV 10/16/19 21:00 10/20/19 21:14 Lactulose (Cephulac) 10 gm THREE TIMES A DAY ORAL 10/17/19 13:00 11/16/19 12:59 Lorazepam (Ativan) 1 mg Q6H PRN ORAL For Anxiety 10/15/19 08:15 10/22/19 08:14 Morphine Sulfate (Morphine Sulfate) 2 mg Q4H PRN IV Severe Pain (Pain Scale 7-10) 10/17/19 12:05 10/23/19 20:04 UNV Pantoprazole (Protonix) 40 mg DAILY ORAL 10/17/19 09:00 11/14/19 08:59 10/17/19 09:28 Polyethylene Glycol (Miralax) 17 gm BEDTIME ORAL 10/15/19 21:00 11/14/19 20:59 10/16/19 20:50 Polyethylene Glycol (Miralax) 17 gm DAILYPRN PRN ORAL Constipation 10/15/19 08:15 11/14/19 08:14 Pyridoxine HCl (Vitamin B6) 50 mg DAILY ORAL 10/15/19 10:00 11/14/19 09:59 10/17/19 09:28 Sitagliptin Phosphate (Januvia) 25 mg DAILY ORAL 10/15/19 10:00 11/14/19 09:59 10/17/19 09:28 Thiamine HCl (Vitamin B1) 100 mg DAILY ORAL 10/15/19 09:00 11/14/19 08:59 10/17/19 09:28 Zolpidem Tartrate (Ambien) 5 mg HSPRN PRN ORAL Insomnia 10/15/19 21:00 10/22/19 20:59 Clarice Nicolas MD Oct 17, 2019 11:49
[2019-10-17] MEDS: Morphine Sulfate 2mg/ml Inj(IV/IM USE ONLY) IV PRN ×2 (11:54→17:41)
[2019-10-17] MEDS: cefTRIAXone 1 GM in D5W 55 ML IVPB SCH (11:55)
[2019-10-17 12:00] VITALS: BP 150/104
--- NOTE | 2019-10-17 13:18 | Nephrology Progress Note ---
Assessment/Plan Problem List: (1) End stage renal disease on dialysis (2) UTI (urinary tract infection) (3) Morbid obesity (4) Coronary artery disease (5) Hypertension (6) Anemia (7) Patient is Yarsanism Assessment End stage renal disease on dialysis UTI (urinary tract infection) Pyelonephritis Hyperkalemia morbid obesity Anemia / Jehova's witness CAD previous stent HTN s/p AVG DM 2 bilateral eye blindness h/o CHF Plan Dialysis next 10/18 Kayexelate for high K Venofer and EPO, thiamin and b6 diet to renal , medium CHO per consultants Subjective ROS Limited/Unobtainable: No Constitutional: Reports: malaise Objective Objective Last 24 Hour Vital Signs Date Time Temp Pulse Resp B/P (MAP) Pulse Ox O2 Delivery O2 Flow Rate FiO2 10/17/19 12:00 98.4 99 20 150/104 (119) 99 10/17/19 09:29 61 162/93 10/17/19 08:20 61 18 96 Room Air 21 10/17/19 08:00 98.0 60 20 162/93 (116) 95 10/17/19 04:00 97.8 65 20 139/67 (91) 96 10/17/19 00:00 96.6 63 20 159/87 (111) 99 10/16/19 21:00 Room Air 10/16/19 20:12 59 18 98 Room Air 21 10/16/19 20:00 97.0 60 19 159/84 (109) 98 10/16/19 16:00 97.0 57 19 154/90 (111) 98 Intake and Output 10/16/19 10/17/19 19:00 07:00 Intake Total 655 ml Output Total 2000 ml Balance -1345 ml IV Total 55 ml Other 600 ml Output Hemodialysis UF 2000 ml Laboratory Tests 10/17/19 05:30: White Blood Count 5.6, Red Blood Count 3.64L, Hemoglobin 9.0L, Hematocrit 28.8L , Mean Corpuscular Volume 79L, Mean Corpuscular Hemoglobin 24.6L, Mean Corpuscular Hemoglobin Concent 31.1L, Red Cell Distribution Width 16.9H, Platelet Count 133L, Mean Platelet Volume 7.1, Neutrophils (%) (Auto) 55.3, Lymphocytes (%) (Auto) 25.2, Monocytes (%) (Auto) 14.5H, Eosinophils (%) (Auto) 4.1H, Basophils (%) (Auto) 1.0, Sodium Level 132L, Potassium Level 5.6H, Chloride Level 93L, Carbon Dioxide Level 35H, Anion Gap 4L, Blood Urea Nitrogen 58H, Creatinine 6.4H, Estimat Glomerular Filtration Rate 8.0, Glucose Level 182H , Calcium Level 8.6, Total Bilirubin 0.8, Aspartate Amino Transf (AST/SGOT) 32, Alanine Aminotransferase (ALT/SGPT) 45, Alkaline Phosphatase 393H, Total Protein 8.7H, Albumin 4.2, Globulin 4.5, Albumin/Globulin Ratio 0.9L Height (Feet): 5 Height (Inches): 5.00 Weight (Pounds): 278 General Appearance: no apparent distress Respiratory/Chest: decreased breath sounds Abdomen: distended Bryan Hunter MD Oct 17, 2019 13:18
[2019-10-17] MEDS: Lactulose 10gm/15ml UDC ORAL SCH ×2 (14:20→17:40)
--- NOTE | 2019-10-17 14:24 | Diagnostic Imaging Report ---
Indications: Needs long-term IV access Technique: Ultrasound confirms patent compressible left basilic vein. Total sterile technique, including sterile probe cover and sterile gel, hat, mask, sterile gown, large sterile drape, and preparation with 2% chlorhexidine utilized. Local anesthesia with 1% lidocaine. Under real-time ultrasound guidance, puncture basilic vein using 21-gauge needle, documented and archived, passage 0.018 guidewire under direct fluoroscopy, which was used to determine appropriate catheter length, exchange for 4 Afghan peel-away sheath. 4 Afghan Bard dual-lumen power PICC cut to 49 cm. It was inserted through the peel-away sheath. Peel-away sheath and guidewire removed. Catheter fixed to the skin. Both catheter ports aspirated and flushed. Patient tolerated procedure well, without immediate complication. Digital radiograph documents satisfactory catheter tip position, at the cavoatrial junction. Total fluoroscopy time 64 seconds. Total dose area product [id number] Total number of images: 1 Impression: Successful placement of left arm PICC under sonographic and fluoroscopic guidance, as described above.
--- NOTE | 2019-10-17 14:26 | General Progress Note ---
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 ICD Codes: E11.49 - Type 2 diabetes mellitus with other diabetic neurological complication SNOMED: 76508378, 694136611 (2) ESRD (end stage renal disease) on dialysis ICD Codes: N18.6 - End stage renal disease; Z99.2 - Dependence on renal dialysis SNOMED: 082074665 (3) Congestive heart failure (CHF) ICD Codes: I50.9 - Heart failure, unspecified SNOMED: 52544705 Status: unchanged Assessment/Plan: continue Levemir 8 units daily continue NISS ac / hs hypoglycemia protocol Subjective ROS Limited/Unobtainable: Yes Allergies: Coded Allergies: NO KNOWN ALLERGIES (Unverified Allergy, Unknown, 10/15/15) Subjective events noted glucose values are stable PICC line placed Item Value Date Time Bedside Blood Glucose 155 mg/dl H 10/17/19 1206 Bedside Blood Glucose 190 mg/dl H 10/17/19 0608 Bedside Blood Glucose 81 mg/dl 10/16/19 2047 Bedside Blood Glucose 124 mg/dl H 10/16/19 1630 Bedside Blood Glucose 262 mg/dl H 10/16/19 1154 Objective Last 24 Hour Vital Signs Date Time Temp Pulse Resp B/P (MAP) Pulse Ox O2 Delivery O2 Flow Rate FiO2 10/17/19 12:00 98.4 99 20 150/104 (119) 99 10/17/19 09:29 61 162/93 10/17/19 09:00 Room Air 10/17/19 08:20 61 18 96 Room Air 21 10/17/19 08:00 98.0 60 20 162/93 (116) 95 10/17/19 04:00 97.8 65 20 139/67 (91) 96 10/17/19 00:00 96.6 63 20 159/87 (111) 99 10/16/19 21:00 Room Air 10/16/19 20:12 59 18 98 Room Air 21 10/16/19 20:00 97.0 60 19 159/84 (109) 98 10/16/19 16:00 97.0 57 19 154/90 (111) 98 Intake and Output 10/16/19 10/17/19 19:00 07:00 Intake Total 655 ml Output Total 2000 ml Balance -1345 ml IV Total 55 ml Other 600 ml Output Hemodialysis UF 2000 ml Laboratory Tests 10/17/19 05:30: White Blood Count 5.6, Red Blood Count 3.64L, Hemoglobin 9.0L, Hematocrit 28.8L , Mean Corpuscular Volume 79L, Mean Corpuscular Hemoglobin 24.6L, Mean Corpuscular Hemoglobin Concent 31.1L, Red Cell Distribution Width 16.9H, Platelet Count 133L, Mean Platelet Volume 7.1, Neutrophils (%) (Auto) 55.3, Lymphocytes (%) (Auto) 25.2, Monocytes (%) (Auto) 14.5H, Eosinophils (%) (Auto) 4.1H, Basophils (%) (Auto) 1.0, Sodium Level 132L, Potassium Level 5.6H, Chloride Level 93L, Carbon Dioxide Level 35H, Anion Gap 4L, Blood Urea Nitrogen 58H, Creatinine 6.4H, Estimat Glomerular Filtration Rate 8.0, Glucose Level 182H , Calcium Level 8.6, Total Bilirubin 0.8, Aspartate Amino Transf (AST/SGOT) 32, Alanine Aminotransferase (ALT/SGPT) 45, Alkaline Phosphatase 393H, Total Protein 8.7H, Albumin 4.2, Globulin 4.5, Albumin/Globulin Ratio 0.9L Height (Feet): 5 Height (Inches): 5.00 Weight (Pounds): 278 General Appearance: no apparent distress EENT: other - blind Neck: normal alignment Cardiovascular: normal rate Respiratory/Chest: decreased breath sounds Abdomen: normal bowel sounds Edema: 1+ Arm (L), 1+ Arm (R), 1+ Leg (L), 1+ Leg (R), 1+ Pedal (L), 1+ Pedal ( R), 1+ Generalized Objective Current Medications Medications (Trade) Dose Ordered Sig/Josi Route PRN Reason Start Time Stop Time Status Last Admin Dose Admin Acetaminophen (Tylenol) 650 mg Q4H PRN ORAL Mild Pain/Temp > 100.5 10/15/19 08:15 11/14/19 08:14 Amlodipine Besylate (Norvasc) 10 mg DAILY ORAL 10/16/19 09:00 11/14/19 08:59 10/17/19 09:29 Atorvastatin Calcium (Lipitor) 10 mg BEDTIME ORAL 10/15/19 21:00 11/14/19 20:59 10/16/19 20:50 Ceftriaxone Sodium 1 gm/ Dextrose 55 ml @ 110 mls/hr Q24H IVPB 10/16/19 12:00 10/23/19 11:59 10/17/19 11:55 Chlorhexidine Gluconate (Jenny-Hex 2%) 1 applic DAILY@2000 TOPIC 10/16/19 20:00 11/15/19 19:59 Clonidine HCl (Catapres Tab) 0.1 mg Q4H PRN ORAL SBP>160mmHg 10/15/19 08:15 11/14/19 08:14 Dextrose (Dextrose 50%) 25 ml Q30M PRN IV Hypoglycemia 10/15/19 08:30 11/14/19 08:23 Dextrose (Dextrose 50%) 50 ml Q30M PRN IV hypoglycemia 10/15/19 08:30 11/14/19 08:29 10/16/19 15:32 Diphenhydramine HCl (Benadryl) 50 mg Q6H PRN ORAL Itching 10/15/19 08:15 11/14/19 08:14 Docusate Sodium (Colace) 100 mg TID ORAL 10/15/19 13:00 11/14/19 08:59 10/17/19 14:20 Epoetin Jose De Jesus (Epoetin Jose De Jesus(ESRD on dialysis)) 10,000 unit SUN-SUN-SUN SUBQ 10/15/19 21:00 11/14/19 20:59 10/15/19 20:50 Gabapentin (Neurontin) 300 mg DAILY ORAL 10/15/19 09:00 11/14/19 08:59 10/17/19 09:28 Heparin Sodium (Porcine) (Heparin 5000 units/ml) 5,000 units EVERY 12 HOURS SUBQ 10/16/19 09:00 11/15/19 08:59 10/16/19 09:19 Hydromorphone HCl (Dilaudid) 0.5 mg Q6H PRN IVP SEVERE BREAKTHROUGH PAIN 10/15/19 08:30 10/22/19 08:14 Insulin Aspart (NovoLOG) BEFORE MEALS AND HS SUBQ 10/15/19 11:30 11/14/19 11:29 10/17/19 12:06 Insulin Detemir (Levemir) 8 units DAILY SUBQ 10/15/19 10:00 11/14/19 09:59 10/16/19 09:16 Ipratropium [place] (Atrovent) 500 mcg Q4H PRN HHN Shortness of Breath 10/15/19 08:15 10/20/19 08:14 Iron Sucrose 100 mg/Sodium Chloride 60 ml @ 240 mls/hr BEDTIME IV 10/16/19 21:00 10/20/19 21:14 Lactulose (Cephulac) 10 gm THREE TIMES A DAY ORAL 10/17/19 13:00 11/16/19 12:59 10/17/19 14:20 Lorazepam (Ativan) 1 mg Q6H PRN ORAL For Anxiety 10/15/19 08:15 10/22/19 08:14 Morphine Sulfate (Morphine Sulfate) 2 mg Q4H PRN IV Severe Pain (Pain Scale 7-10) 10/17/19 12:05 10/23/19 20:04 10/17/19 11:54 Pantoprazole (Protonix) 40 mg DAILY ORAL 10/17/19 09:00 11/14/19 08:59 10/17/19 09:28 Polyethylene Glycol (Miralax) 17 gm BEDTIME ORAL 10/15/19 21:00 11/14/19 20:59 10/16/19 20:50 Polyethylene Glycol (Miralax) 17 gm DAILYPRN PRN ORAL Constipation 10/15/19 08:15 11/14/19 08:14 Pyridoxine HCl (Vitamin B6) 50 mg DAILY ORAL 10/15/19 10:00 11/14/19 09:59 10/17/19 09:28 Sitagliptin Phosphate (Januvia) 25 mg DAILY ORAL 10/15/19 10:00 11/14/19 09:59 10/17/19 09:28 Thiamine HCl (Vitamin B1) 100 mg DAILY ORAL 10/15/19 09:00 11/14/19 08:59 10/17/19 09:28 Zolpidem Tartrate (Ambien) 5 mg HSPRN PRN ORAL Insomnia 10/15/19 21:00 10/22/19 20:59 Franko Rogel MD Oct 17, 2019 14:26
[2019-10-17 16:00] VITALS: BP 174/68
[2019-10-17 20:00] VITALS: BP 161/83
[2019-10-17] MEDS: Dyna-Hex 2% Top Sol 2oz TOPIC SCH (20:00)
[2019-10-17] MEDS: Miralax 17gm pkt ORAL SCH (21:02)
[2019-10-17] MEDS: Epoetin Alfa-EPBX(ESRD on dialysis)10,000 unit/ml vial SUBQ SCH (21:03)
[2019-10-17] MEDS: Zolpidem 5mg tab ORAL PRN (21:03)
[2019-10-17] MEDS: Iron Sucrose 100 MG in NS 55 ML IV SCH (21:13)
[2019-10-18] VITALS: BP 156/93
[2019-10-18] MEDS: Morphine Sulfate 2mg/ml Inj(IV/IM USE ONLY) IV PRN ×2 (00:16→20:20)
[2019-10-18 04:00] VITALS: BP 158/69
[2019-10-18 06:07] LABS: BASOPHILS % (AUTO) 0.7 % (0.0-2.0); EOSINOPHILS % (AUTO) 4.9 % (0.0-3.0); HEMATOCRIT 26.3 % (37.0-47.0); HEMOGLOBIN 8.2 G/DL (12.0-16.0); LYMPHOCYTES % (AUTO) 26.7 % (20.0-45.0); MEAN CORPUSCULAR VOLUME 78 FL (80-99); MONOCYTES % (AUTO) 16.3 % (1.0-10.0); NEUTROPHILS % (AUTO) 51.4 % (45.0-75.0); PLATELET COUNT 107 K/UL (150-450); RED BLOOD COUNT 3.36 M/UL (4.20-5.40); RED CELL DISTRIBUTION WIDTH 17.6 % (11.6-14.8); WHITE BLOOD COUNT 4.7 K/UL (4.8-10.8)
[2019-10-18] MEDS: Insulin NovoLOG Flexpen S/S (insulin sensitive) SUBQ SCH ×4 (06:07→21:04)
[2019-10-18 06:20] LABS: ANION GAP 7 mmol/L (5-15); BLOOD UREA NITROGEN 67 mg/dL (7-18); CALCIUM 8.5 MG/DL (8.5-10.1); CARBON DIOXIDE 34 MMOL/L (21-32); CHLORIDE 89 MMOL/L (98-107); CREATININE 7.6 MG/DL (0.55-1.30); POTASSIUM 4.9 MMOL/L (3.5-5.1); SODIUM 130 MMOL/L (136-145)
--- NOTE | 2019-10-18 06:25 | General Progress Note ---
Assessment/Plan Status: unchanged Assessment/Plan: GI: Plan Problems: (1) Intractable abdominal pain (2) Anemia (3) Patient is Christian (4) Iron deficiency (5) Morbid obesity (6) Blindness of both eyes (7) DM (8) ERSD Plan Lipase within normal limits History of endoscopy September 2018, noted with mild chronic gastritis Will consider abdominal pelvic CT patient has persistent abdominal pain No plans for any GI procedures at this time iv iron bowel regimen Pain management Bowel regimen of Colace plus MiraLAX Zofran as needed PPI IV and p.o. hydration We will follow along on a daily basis with additional recommendations Thank you for this patient referral, we will follow. Subjective Allergies: Coded Allergies: NO KNOWN ALLERGIES (Unverified Allergy, Unknown, 10/15/15) Objective Last 24 Hour Vital Signs Date Time Temp Pulse Resp B/P (MAP) Pulse Ox O2 Delivery O2 Flow Rate FiO2 10/18/19 00:00 97.7 60 18 156/93 (114) 98 10/17/19 21:03 161/83 10/17/19 21:00 Room Air 10/17/19 20:00 97.3 61 20 161/83 (109) 98 10/17/19 19:48 71 18 97 Room Air 21 10/17/19 17:01 174/68 10/17/19 16:00 98.2 84 20 174/68 (103) 98 10/17/19 12:00 98.4 99 20 150/104 (119) 99 10/17/19 09:29 61 162/93 10/17/19 09:00 Room Air 10/17/19 08:20 61 18 96 Room Air 21 10/17/19 08:00 98.0 60 20 162/93 (116) 95 Intake and Output 10/17/19 10/18/19 18:59 06:59 Intake Total 1135 ml Balance 1135 ml Intake Oral 1080 ml IV Total 55 ml # Voids 1 Laboratory Tests 10/17/19 17:00: Stool Occult Blood [Pending] 10/18/19 05:45: White Blood Count 4.7L, Red Blood Count 3.36L, Hemoglobin 8.2L, Hematocrit 26.3L , Mean Corpuscular Volume 78L, Mean Corpuscular Hemoglobin 24.4L, Mean Corpuscular Hemoglobin Concent 31.2L, Red Cell Distribution Width 17.6H, Platelet Count 107L, Mean Platelet Volume 6.6, Neutrophils (%) (Auto) 51.4, Lymphocytes (%) (Auto) 26.7, Monocytes (%) (Auto) 16.3H, Eosinophils (%) (Auto) 4.9H, Basophils (%) (Auto) 0.7, Sodium Level [Pending], Potassium Level [Pending ], Chloride Level [Pending], Carbon Dioxide Level [Pending], Blood Urea Nitrogen [Pending], Creatinine [Pending], Estimat Glomerular Filtration Rate [ Pending], Glucose Level [Pending], Calcium Level [Pending] Height (Feet): 5 Height (Inches): 5.00 Weight (Pounds): 278 General Appearance: alert EENT: normal ENT inspection Neck: supple Cardiovascular: normal rate Respiratory/Chest: decreased breath sounds Abdomen: normal bowel sounds, non tender, soft Extremities: non-tender Jamison Garcia MD Oct 18, 2019 06:25
--- NOTE | 2019-10-18 07:09 | General Progress Note ---
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 ICD Codes: E11.49 - Type 2 diabetes mellitus with other diabetic neurological complication SNOMED: 98034522, 483592250 (2) ESRD (end stage renal disease) on dialysis ICD Codes: N18.6 - End stage renal disease; Z99.2 - Dependence on renal dialysis SNOMED: 729499536 (3) Congestive heart failure (CHF) ICD Codes: I50.9 - Heart failure, unspecified SNOMED: 65032162 Status: unchanged Assessment/Plan: DC Levemir continue Januvia 25 mg daily continue NISS ac / hs hypoglycemia protocol Subjective Allergies: Coded Allergies: NO KNOWN ALLERGIES (Unverified Allergy, Unknown, 10/15/15) Subjective events noted hypoglycemia noted - RN notified me this morning Item Value Date Time Bedside Blood Glucose 111 mg/dl 10/18/19 0607 Bedside Blood Glucose 141 mg/dl H 10/17/19 2106 Bedside Blood Glucose 131 mg/dl H 10/17/19 1702 Bedside Blood Glucose 155 mg/dl H 10/17/19 1206 Bedside Blood Glucose 190 mg/dl H 10/17/19 0608 Objective Last 24 Hour Vital Signs Date Time Temp Pulse Resp B/P (MAP) Pulse Ox O2 Delivery O2 Flow Rate FiO2 10/18/19 04:00 97.9 61 20 158/69 (98) 97 10/18/19 00:00 97.7 60 18 156/93 (114) 98 10/17/19 21:03 161/83 10/17/19 21:00 Room Air 10/17/19 20:00 97.3 61 20 161/83 (109) 98 10/17/19 19:48 71 18 97 Room Air 21 10/17/19 17:01 174/68 10/17/19 16:00 98.2 84 20 174/68 (103) 98 10/17/19 12:00 98.4 99 20 150/104 (119) 99 10/17/19 09:29 61 162/93 10/17/19 09:00 Room Air 10/17/19 08:20 61 18 96 Room Air 21 10/17/19 08:00 98.0 60 20 162/93 (116) 95 Intake and Output 10/17/19 10/18/19 18:59 06:59 Intake Total 1135 ml Balance 1135 ml Intake Oral 1080 ml IV Total 55 ml # Voids 1 Laboratory Tests 10/17/19 17:00: Stool Occult Blood [Pending] 10/18/19 05:45: White Blood Count 4.7L, Red Blood Count 3.36L, Hemoglobin 8.2L, Hematocrit 26.3L , Mean Corpuscular Volume 78L, Mean Corpuscular Hemoglobin 24.4L, Mean Corpuscular Hemoglobin Concent 31.2L, Red Cell Distribution Width 17.6H, Platelet Count 107L, Mean Platelet Volume 6.6, Neutrophils (%) (Auto) 51.4, Lymphocytes (%) (Auto) 26.7, Monocytes (%) (Auto) 16.3H, Eosinophils (%) (Auto) 4.9H, Basophils (%) (Auto) 0.7, Sodium Level 130L, Potassium Level 4.9, Chloride Level 89L, Carbon Dioxide Level 34H, Anion Gap 7, Blood Urea Nitrogen 67H, Creatinine 7.6H, Estimat Glomerular Filtration Rate 6.5, Glucose Level 125H , Calcium Level 8.5 Height (Feet): 5 Height (Inches): 5.00 Weight (Pounds): 278 General Appearance: no apparent distress Cardiovascular: normal rate Respiratory/Chest: lungs clear Abdomen: normal bowel sounds Objective Current Medications Medications (Trade) Dose Ordered Sig/Josi Route PRN Reason Start Time Stop Time Status Last Admin Dose Admin Acetaminophen (Tylenol) 650 mg Q4H PRN ORAL Mild Pain/Temp > 100.5 10/15/19 08:15 11/14/19 08:14 Amlodipine Besylate (Norvasc) 10 mg DAILY ORAL 10/16/19 09:00 11/14/19 08:59 10/17/19 09:29 Atorvastatin Calcium (Lipitor) 10 mg BEDTIME ORAL 10/15/19 21:00 11/14/19 20:59 10/17/19 21:02 Ceftriaxone Sodium 1 gm/ Dextrose 55 ml @ 110 mls/hr Q24H IVPB 10/16/19 12:00 10/23/19 11:59 10/17/19 11:55 Chlorhexidine Gluconate (Jenny-Hex 2%) 1 applic DAILY@2000 TOPIC 10/16/19 20:00 11/15/19 19:59 10/17/19 20:00 Clonidine HCl (Catapres Tab) 0.1 mg Q4H PRN ORAL SBP>160mmHg 10/15/19 08:15 11/14/19 08:14 10/17/19 21:03 Dextrose (Dextrose 50%) 25 ml Q30M PRN IV Hypoglycemia 10/15/19 08:30 11/14/19 08:23 Dextrose (Dextrose 50%) 50 ml Q30M PRN IV hypoglycemia 10/15/19 08:30 11/14/19 08:29 10/18/19 04:45 Diphenhydramine HCl (Benadryl) 50 mg Q6H PRN ORAL Itching 10/15/19 08:15 11/14/19 08:14 Docusate Sodium (Colace) 100 mg TID ORAL 10/15/19 13:00 11/14/19 08:59 10/17/19 17:40 Epoetin Jose De Jesus (Epoetin Jose De Jesus(ESRD on dialysis)) 10,000 unit SUN-SUN-SUN SUBQ 10/15/19 21:00 11/14/19 20:59 10/17/19 21:03 Gabapentin (Neurontin) 300 mg DAILY ORAL 10/15/19 09:00 11/14/19 08:59 10/17/19 09:28 Heparin Sodium (Porcine) (Heparin 5000 units/ml) 5,000 units EVERY 12 HOURS SUBQ 10/16/19 09:00 11/15/19 08:59 10/16/19 09:19 Hydromorphone HCl (Dilaudid) 0.5 mg Q6H PRN IVP SEVERE BREAKTHROUGH PAIN 10/15/19 08:30 10/22/19 08:14 Insulin Aspart (NovoLOG) BEFORE MEALS AND HS SUBQ 10/15/19 11:30 11/14/19 11:29 10/18/19 06:07 Ipratropium [place] (Atrovent) 500 mcg Q4H PRN HHN Shortness of Breath 10/15/19 08:15 10/20/19 08:14 Iron Sucrose 100 mg/Sodium Chloride 60 ml @ 240 mls/hr BEDTIME IV 10/16/19 21:00 10/20/19 21:14 10/17/19 21:13 Lactulose (Cephulac) 10 gm THREE TIMES A DAY ORAL 10/17/19 13:00 11/16/19 12:59 10/17/19 17:40 Lorazepam (Ativan) 1 mg Q6H PRN ORAL For Anxiety 10/15/19 08:15 10/22/19 08:14 Morphine Sulfate (Morphine Sulfate) 2 mg Q4H PRN IV Severe Pain (Pain Scale 7-10) 10/17/19 12:05 10/23/19 20:04 10/18/19 00:16 Ondansetron HCl (Zofran) 4 mg Q6H PRN IVP Nausea & Vomiting 10/18/19 06:45 11/17/19 06:44 Pantoprazole (Protonix) 40 mg DAILY ORAL 10/17/19 09:00 11/14/19 08:59 10/17/19 09:28 Polyethylene Glycol (Miralax) 17 gm BEDTIME ORAL 10/15/19 21:00 11/14/19 20:59 10/17/19 21:02 Polyethylene Glycol (Miralax) 17 gm DAILYPRN PRN ORAL Constipation 10/15/19 08:15 11/14/19 08:14 Pyridoxine HCl (Vitamin B6) 50 mg DAILY ORAL 10/15/19 10:00 11/14/19 09:59 10/17/19 09:28 Sitagliptin Phosphate (Januvia) 25 mg DAILY ORAL 10/15/19 10:00 11/14/19 09:59 10/17/19 09:28 Thiamine HCl (Vitamin B1) 100 mg DAILY ORAL 10/15/19 09:00 11/14/19 08:59 10/17/19 09:28 Zolpidem Tartrate (Ambien) 5 mg HSPRN PRN ORAL Insomnia 10/15/19 21:00 10/22/19 20:59 10/17/19 21:03 Franko Rogel MD Oct 18, 2019 07:09
[2019-10-18 08:00] VITALS: BP 158/69
[2019-10-18] MEDS: sitaGLIPtin 25mg tab ORAL SCH (08:29)
[2019-10-18] MEDS: Thiamine 100mg tab ORAL SCH (08:29)
[2019-10-18] MEDS: Docusate 100mg cap ORAL SCH ×3 (08:29→17:15)
[2019-10-18] MEDS: Lactulose 10gm/15ml UDC ORAL SCH ×3 (08:29→18:08)
[2019-10-18] MEDS: Pyridoxine 50mg tab ORAL SCH (08:29)
[2019-10-18] MEDS: Heparin 5000 units/ml inj SUBQ SCH ×2 (08:30→20:59)
--- NOTE | 2019-10-18 09:30 | General Progress Note ---
Assessment/Plan Problem List: (1) Abdominal pain ICD Codes: R10.9 - Unspecified abdominal pain SNOMED: 02987350 (2) Congestive heart failure (CHF) ICD Codes: I50.9 - Heart failure, unspecified SNOMED: 26464810 (3) Back pain ICD Codes: M54.9 - Dorsalgia, unspecified SNOMED: 922468739 (4) General weakness ICD Codes: R53.1 - Weakness SNOMED: 99679010 (5) ESRD (end stage renal disease) on dialysis ICD Codes: N18.6 - End stage renal disease; Z99.2 - Dependence on renal dialysis SNOMED: 303889751 (6) Diabetes mellitus type 2 with neurological manifestations ICD Codes: E11.49 - Type 2 diabetes mellitus with other diabetic neurological complication SNOMED: 83023273, 748748075 (7) UTI (urinary tract infection) ICD Codes: N39.0 - Urinary tract infection, site not specified SNOMED: 26201233 (8) Anemia ICD Codes: D64.9 - Anemia, unspecified SNOMED: 403588044 Status: unchanged Assessment/Plan: pt diet abx pain control dialysis cbc bmp am Subjective Constitutional: Reports: weakness Allergies: Coded Allergies: NO KNOWN ALLERGIES (Unverified Allergy, Unknown, 10/15/15) All Systems: reviewed and negative except above Subjective sleepy calm Objective Last 24 Hour Vital Signs Date Time Temp Pulse Resp B/P (MAP) Pulse Ox O2 Delivery O2 Flow Rate FiO2 10/18/19 09:00 Room Air 10/18/19 08:29 61 158/69 10/18/19 08:00 97.8 61 19 158/69 (98) 97 10/18/19 04:00 97.9 61 20 158/69 (98) 97 10/18/19 00:00 97.7 60 18 156/93 (114) 98 10/17/19 21:03 161/83 10/17/19 21:00 Room Air 10/17/19 20:00 97.3 61 20 161/83 (109) 98 10/17/19 19:48 71 18 97 Room Air 21 10/17/19 17:01 174/68 10/17/19 16:00 98.2 84 20 174/68 (103) 98 10/17/19 12:00 98.4 99 20 150/104 (119) 99 10/17/19 09:29 61 162/93 Intake and Output 10/17/19 10/18/19 19:00 07:00 Intake Total 1135 ml Balance 1135 ml Intake Oral 1080 ml IV Total 55 ml # Voids 1 Laboratory Tests 10/17/19 17:00: Stool Occult Blood [Pending] 10/18/19 05:45: White Blood Count 4.7L, Red Blood Count 3.36L, Hemoglobin 8.2L, Hematocrit 26.3L , Mean Corpuscular Volume 78L, Mean Corpuscular Hemoglobin 24.4L, Mean Corpuscular Hemoglobin Concent 31.2L, Red Cell Distribution Width 17.6H, Platelet Count 107L, Mean Platelet Volume 6.6, Neutrophils (%) (Auto) 51.4, Lymphocytes (%) (Auto) 26.7, Monocytes (%) (Auto) 16.3H, Eosinophils (%) (Auto) 4.9H, Basophils (%) (Auto) 0.7, Sodium Level 130L, Potassium Level 4.9, Chloride Level 89L, Carbon Dioxide Level 34H, Anion Gap 7, Blood Urea Nitrogen 67H, Creatinine 7.6H, Estimat Glomerular Filtration Rate 6.5, Glucose Level 125H , Calcium Level 8.5 Height (Feet): 5 Height (Inches): 5.00 Weight (Pounds): 278 General Appearance: lethargic EENT: normal ENT inspection Neck: normal alignment Cardiovascular: normal peripheral pulses, normal rate, regular rhythm Respiratory/Chest: chest wall non-tender, lungs clear, normal breath sounds Abdomen: normal bowel sounds, non tender, soft Extremities: normal inspection Edema: no edema noted Arm (L), no edema noted Arm (R), no edema noted Leg (L), no edema noted Leg (R), no edema noted Pedal (L), no edema noted Pedal (R), no edema noted Generalized Neurologic: motor weakness Skin: normal pigmentation, warm/dry Roderick Henning DO Oct 18, 2019 09:30
[2019-10-18 12:00] VITALS: BP_SYST 157; BP_SYST 99; BP_DIAS 69; BP_DIAS 99
[2019-10-18] MEDS: cefTRIAXone 1 GM in D5W 55 ML IVPB SCH (12:23)
--- NOTE | 2019-10-18 15:08 | Nephrology Progress Note ---
Assessment/Plan Problem List: (1) End stage renal disease on dialysis (2) UTI (urinary tract infection) (3) Morbid obesity (4) Coronary artery disease (5) Hypertension (6) Anemia (7) Patient is [employer] Assessment End stage renal disease on dialysis UTI (urinary tract infection) Pyelonephritis Hyperkalemia morbid obesity Anemia / Jehova's witness CAD previous stent HTN s/p AVG DM 2 bilateral eye blindness h/o CHF Plan Dialysis next 10/20 Kayexelate for high K Venofer and EPO, thiamin and b6 diet to renal , medium CHO per consultants Subjective ROS Limited/Unobtainable: No Constitutional: Reports: malaise Objective Objective Last 24 Hour Vital Signs Date Time Temp Pulse Resp B/P (MAP) Pulse Ox O2 Delivery O2 Flow Rate FiO2 10/18/19 12:00 97.9 60 16 99/69 (79) 97 10/18/19 09:00 Room Air 10/18/19 08:29 61 158/69 10/18/19 08:00 97.8 61 19 158/69 (98) 97 10/18/19 07:49 67 20 98 Room Air 21 10/18/19 04:00 97.9 61 20 158/69 (98) 97 10/18/19 00:00 97.7 60 18 156/93 (114) 98 10/17/19 21:03 161/83 10/17/19 21:00 Room Air 10/17/19 20:00 97.3 61 20 161/83 (109) 98 10/17/19 19:48 71 18 97 Room Air 21 10/17/19 17:01 174/68 10/17/19 16:00 98.2 84 20 174/68 (103) 98 Intake and Output 10/17/19 10/18/19 19:00 07:00 Intake Total 1135 ml Balance 1135 ml Intake Oral 1080 ml IV Total 55 ml # Voids 1 Laboratory Tests 10/17/19 17:00: Stool Occult Blood [Pending] 10/18/19 05:45: White Blood Count 4.7L, Red Blood Count 3.36L, Hemoglobin 8.2L, Hematocrit 26.3L , Mean Corpuscular Volume 78L, Mean Corpuscular Hemoglobin 24.4L, Mean Corpuscular Hemoglobin Concent 31.2L, Red Cell Distribution Width 17.6H, Platelet Count 107L, Mean Platelet Volume 6.6, Neutrophils (%) (Auto) 51.4, Lymphocytes (%) (Auto) 26.7, Monocytes (%) (Auto) 16.3H, Eosinophils (%) (Auto) 4.9H, Basophils (%) (Auto) 0.7, Sodium Level 130L, Potassium Level 4.9, Chloride Level 89L, Carbon Dioxide Level 34H, Anion Gap 7, Blood Urea Nitrogen 67H, Creatinine 7.6H, Estimat Glomerular Filtration Rate 6.5, Glucose Level 125H , Calcium Level 8.5 Height (Feet): 5 Height (Inches): 5.00 Weight (Pounds): 278 General Appearance: no apparent distress Objective no change Bryan Hunter MD Oct 18, 2019 15:08
[2019-10-18 16:43] VITALS: BP 150/84
[2019-10-18] MEDS ORDERED: Sodium Polystyrene Sulfonate 15gm Powder ORAL SCH (17:00)
[2019-10-18 20:00] VITALS: BP 169/98
[2019-10-18] MEDS: Dyna-Hex 2% Top Sol 2oz TOPIC SCH (20:16)
[2019-10-18] MEDS: Zolpidem 5mg tab ORAL PRN (20:19)
[2019-10-18] MEDS: Miralax 17gm pkt ORAL SCH (20:20)
[2019-10-18] MEDS: Iron Sucrose 100 MG in NS 55 ML IV SCH (20:25)
[2019-10-19] VITALS: BP 157/95
[2019-10-19] MEDS: Morphine Sulfate 2mg/ml Inj(IV/IM USE ONLY) IV PRN ×2 (03:01→23:29)
[2019-10-19 04:00] VITALS: BP 157/93
[2019-10-19] MEDS: Insulin NovoLOG Flexpen S/S (insulin sensitive) SUBQ SCH ×4 (05:40→20:18)
[2019-10-19 05:48] LABS: HEMATOCRIT 24.9 % (37.0-47.0); HEMOGLOBIN 7.8 G/DL (12.0-16.0); MEAN CORPUSCULAR VOLUME 79 FL (80-99); PLATELET COUNT 99 K/UL (150-450); RED BLOOD COUNT 3.16 M/UL (4.20-5.40); RED CELL DISTRIBUTION WIDTH 18.3 % (11.6-14.8)
[2019-10-19 06:13] LABS: ALANINE AMINOTRANSFERASE 35 U/L (12-78); ALBUMIN 3.7 G/DL (3.4-5.0); ALBUMIN/GLOBULIN RATIO 0.9 (1.0-2.7); ALKALINE PHOSPHATASE 359 U/L (46-116); ANION GAP 10 mmol/L (5-15); ASPARTATE AMINO TRANSFERASE 24 U/L (15-37); BILIRUBIN,TOTAL 0.7 MG/DL (0.2-1.0); BLOOD UREA NITROGEN 57 mg/dL (7-18); CALCIUM 8.2 MG/DL (8.5-10.1); CARBON DIOXIDE 32 MMOL/L (21-32); CHLORIDE 93 MMOL/L (98-107); CREATININE 6.5 MG/DL (0.55-1.30); POTASSIUM 4.3 MMOL/L (3.5-5.1); SODIUM 135 MMOL/L (136-145)
[2019-10-19 08:00] VITALS: BP 152/96
[2019-10-19] MEDS: Docusate 100mg cap ORAL SCH ×3 (08:00→17:36)
[2019-10-19] MEDS: sitaGLIPtin 25mg tab ORAL SCH (08:00)
[2019-10-19] MEDS: Pyridoxine 50mg tab ORAL SCH (08:00)
[2019-10-19] MEDS: Thiamine 100mg tab ORAL SCH (08:00)
[2019-10-19] MEDS: Lactulose 10gm/15ml UDC ORAL SCH (08:01)
[2019-10-19] MEDS: Heparin 5000 units/ml inj SUBQ SCH ×2 (08:02→20:49)
--- NOTE | 2019-10-19 08:06 | General Progress Note ---
Assessment/Plan Problem List: (1) Abdominal pain ICD Codes: R10.9 - Unspecified abdominal pain SNOMED: 45174495 (2) Congestive heart failure (CHF) ICD Codes: I50.9 - Heart failure, unspecified SNOMED: 68721528 (3) Back pain ICD Codes: M54.9 - Dorsalgia, unspecified SNOMED: 563159792 (4) General weakness ICD Codes: R53.1 - Weakness SNOMED: 41390014 (5) ESRD (end stage renal disease) on dialysis ICD Codes: N18.6 - End stage renal disease; Z99.2 - Dependence on renal dialysis SNOMED: 477802796 (6) Diabetes mellitus type 2 with neurological manifestations ICD Codes: E11.49 - Type 2 diabetes mellitus with other diabetic neurological complication SNOMED: 95104063, 281638191 (7) UTI (urinary tract infection) ICD Codes: N39.0 - Urinary tract infection, site not specified SNOMED: 16549813 (8) Anemia ICD Codes: D64.9 - Anemia, unspecified SNOMED: 318052719 Status: unchanged Assessment/Plan: pt diet abx pain control dialysis cbc bmp am transfuse prn Subjective Constitutional: Reports: weakness Allergies: Coded Allergies: NO KNOWN ALLERGIES (Unverified Allergy, Unknown, 10/15/15) All Systems: reviewed and negative except above Subjective sleepy calm Objective Last 24 Hour Vital Signs Date Time Temp Pulse Resp B/P (MAP) Pulse Ox O2 Delivery O2 Flow Rate FiO2 10/19/19 08:00 60 157/93 10/19/19 04:00 97.0 60 20 157/93 (114) 97 10/19/19 00:00 97.0 62 18 157/95 (115) 99 10/18/19 22:33 169/98 10/18/19 21:00 Room Air 10/18/19 20:18 64 20 96 Room Air 21 10/18/19 20:00 97.3 60 20 169/98 (121) 97 10/18/19 16:43 98.0 66 18 150/84 (106) 97 10/18/19 12:00 97.9 60 16 157/99 (118) 97 10/18/19 09:00 Room Air 10/18/19 08:29 61 158/69 Intake and Output 10/18/19 10/19/19 18:59 06:59 Intake Total 1200 ml Balance 1200 ml Intake Oral 1200 ml # Voids 1 # Bowel Movements 1 Laboratory Tests 10/19/19 05:35: White Blood Count 5.0, Red Blood Count 3.16L, Hemoglobin 7.8L, Hematocrit 24.9L , Mean Corpuscular Volume 79L, Mean Corpuscular Hemoglobin 24.5L, Mean Corpuscular Hemoglobin Concent 31.1L, Red Cell Distribution Width 18.3H, Platelet Count 99L, Mean Platelet Volume 6.9, Neutrophils (%) (Auto) , Lymphocytes (%) (Auto) , Monocytes (%) (Auto) , Eosinophils (%) (Auto) , Basophils (%) (Auto) , Neutrophils % (Manual) [Pending], Lymphocytes % (Manual) [Pending], Platelet Estimate [Pending], Platelet Morphology [Pending], Sodium Level 135L, Potassium Level 4.3, Chloride Level 93L, Carbon Dioxide Level 32, Anion Gap 10, Blood Urea Nitrogen 57H, Creatinine 6.5H, Estimat Glomerular Filtration Rate 7.9, Glucose Level 119H, Calcium Level 8.2L, Total Bilirubin 0.7 , Aspartate Amino Transf (AST/SGOT) 24, Alanine Aminotransferase (ALT/SGPT) 35, Alkaline Phosphatase 359H, Total Protein 8.0, Albumin 3.7, Globulin 4.3, Albumin /Globulin Ratio 0.9L Height (Feet): 5 Height (Inches): 5.00 Weight (Pounds): 278 General Appearance: lethargic EENT: normal ENT inspection Neck: normal alignment Cardiovascular: normal peripheral pulses, normal rate, regular rhythm Respiratory/Chest: chest wall non-tender, lungs clear, normal breath sounds Abdomen: normal bowel sounds, non tender, soft Extremities: normal inspection Edema: no edema noted Arm (L), no edema noted Arm (R), no edema noted Leg (L), no edema noted Leg (R), no edema noted Pedal (L), no edema noted Pedal (R), no edema noted Generalized Neurologic: responsive, motor weakness Skin: normal pigmentation, warm/dry Roderick Henning DO Oct 19, 2019 08:06
--- NOTE | 2019-10-19 08:46 | General Progress Note ---
Assessment/Plan Status: unchanged Assessment/Plan: GI: Plan Problems: (1) Intractable abdominal pain (2) Anemia (3) Patient is [place] (4) Iron deficiency (5) Morbid obesity (6) Blindness of both eyes (7) DM (8) ERSD Plan Lipase within normal limits History of endoscopy September 2018, noted with mild chronic gastritis Will consider abdominal pelvic CT patient has persistent abdominal pain No plans for any GI procedures at this time iv iron bowel regimen Pain management Bowel regimen of Colace plus MiraLAX Zofran as needed PPI IV and p.o. hydration We will follow along on a daily basis with additional recommendations fu stool ob Thank you for this patient referral, we will follow. Subjective ROS Limited/Unobtainable: No Allergies: Coded Allergies: NO KNOWN ALLERGIES (Unverified Allergy, Unknown, 10/15/15) Objective Last 24 Hour Vital Signs Date Time Temp Pulse Resp B/P (MAP) Pulse Ox O2 Delivery O2 Flow Rate FiO2 10/19/19 08:00 97.5 96 20 152/96 (114) 97 10/19/19 08:00 60 157/93 10/19/19 08:00 Room Air 10/19/19 04:00 97.0 60 20 157/93 (114) 97 10/19/19 00:00 97.0 62 18 157/95 (115) 99 10/18/19 22:33 169/98 10/18/19 21:00 Room Air 10/18/19 20:18 64 20 96 Room Air 21 10/18/19 20:00 97.3 60 20 169/98 (121) 97 10/18/19 16:43 98.0 66 18 150/84 (106) 97 10/18/19 12:00 97.9 60 16 157/99 (118) 97 10/18/19 09:00 Room Air Intake and Output 10/18/19 10/19/19 18:59 06:59 Intake Total 1200 ml Balance 1200 ml Intake Oral 1200 ml # Voids 1 # Bowel Movements 1 Laboratory Tests 10/19/19 05:35: White Blood Count 5.0, Red Blood Count 3.16L, Hemoglobin 7.8L, Hematocrit 24.9L , Mean Corpuscular Volume 79L, Mean Corpuscular Hemoglobin 24.5L, Mean Corpuscular Hemoglobin Concent 31.1L, Red Cell Distribution Width 18.3H, Platelet Count 99L, Mean Platelet Volume 6.9, Neutrophils (%) (Auto) , Lymphocytes (%) (Auto) , Monocytes (%) (Auto) , Eosinophils (%) (Auto) , Basophils (%) (Auto) , Differential Total Cells Counted 100, Neutrophils % ( Manual) 64, Lymphocytes % (Manual) 24, Monocytes % (Manual) 9, Eosinophils % ( Manual) 3, Basophils % (Manual) 0, Band Neutrophils 0, Platelet Estimate DecreasedL, Platelet Morphology Normal, Hypochromasia 1+, Anisocytosis 1+, Microcytosis 1+, Sodium Level 135L, Potassium Level 4.3, Chloride Level 93L, Carbon Dioxide Level 32, Anion Gap 10, Blood Urea Nitrogen 57H, Creatinine 6.5H , Estimat Glomerular Filtration Rate 7.9, Glucose Level 119H, Calcium Level 8.2L , Total Bilirubin 0.7, Aspartate Amino Transf (AST/SGOT) 24, Alanine Aminotransferase (ALT/SGPT) 35, Alkaline Phosphatase 359H, Total Protein 8.0, Albumin 3.7, Globulin 4.3, Albumin/Globulin Ratio 0.9L Height (Feet): 5 Height (Inches): 5.00 Weight (Pounds): 278 General Appearance: alert EENT: normal ENT inspection Neck: supple Cardiovascular: normal rate Respiratory/Chest: decreased breath sounds Abdomen: normal bowel sounds, non tender, soft Extremities: non-tender Jamison Garcia MD Oct 19, 2019 08:46
[2019-10-19 12:04] VITALS: BP 132/90
--- NOTE | 2019-10-19 12:09 | Infectious Diseases Prog Note ---
Assessment/Plan Assessment/Plan 64yo woman with PMH below presents with few days of dysuria, frequency, suprapubic pain. Pt states that she gets UTIs often and she knows she has a UTI. Reports bilateral flank pain. Denies fever, chills, nausea, vomiting, cough , sore throat, chest pain, diarrhea. Reports orthopnea. Pt states that [facility] was giving her PO antibiotics twice a day but her symptoms did not improve. Spoke to Tequila at [facility] and no record of recent antibiotics. 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 [facility] will continue to follow the patient with you. Subjective Allergies: Coded Allergies: NO KNOWN ALLERGIES (Unverified Allergy, Unknown, 10/15/15) Subjective Afebrile. RA. Normal WBC MDR Proteus Abdominal pain better Objective Vital Signs Last 24 Hour Vital Signs Date Time Temp Pulse Resp B/P (MAP) Pulse Ox O2 Delivery O2 Flow Rate FiO2 10/19/19 12:04 96.8 98 20 132/90 (104) 96 10/19/19 08:00 97.5 96 20 152/96 (114) 97 10/19/19 08:00 60 157/93 10/19/19 08:00 Room Air 10/19/19 04:00 97.0 60 20 157/93 (114) 97 10/19/19 00:00 97.0 62 18 157/95 (115) 99 10/18/19 22:33 169/98 10/18/19 21:00 Room Air 10/18/19 20:18 64 20 96 Room Air 21 10/18/19 20:00 97.3 60 20 169/98 (121) 97 10/18/19 16:43 98.0 66 18 150/84 (106) 97 Height (Feet): 5 Height (Inches): 5.00 Weight (Pounds): 278 Objective Gen: NAD. hard of hearing. HEENT: Anicteric sclera. No oral thrush CV: RRR. no murmurs or rubs. Resp: CTAB. RRR. no wheezes or crackles. Abd: normoactive BS+. Soft. suprapubic tenderness. Back: bilateral flank pain Neuro: alert. interactive Skin: warm. dry. Laboratory Tests Test 10/19/19 05:35 White Blood Count 5.0 K/UL (4.8-10.8) Red Blood Count 3.16 M/UL (4.20-5.40) L Hemoglobin 7.8 G/DL (12.0-16.0) L Hematocrit 24.9 % (37.0-47.0) L Mean Corpuscular Volume 79 FL (80-99) L Mean Corpuscular Hemoglobin 24.5 PG (27.0-31.0) L Mean Corpuscular Hemoglobin Concent 31.1 G/DL (32.0-36.0) L Red Cell Distribution Width 18.3 % (11.6-14.8) H Platelet Count 99 K/UL (150-450) L Mean Platelet Volume 6.9 FL (6.5-10.1) Neutrophils (%) (Auto) % (45.0-75.0) Lymphocytes (%) (Auto) % (20.0-45.0) Monocytes (%) (Auto) % (1.0-10.0) Eosinophils (%) (Auto) % (0.0-3.0) Basophils (%) (Auto) % (0.0-2.0) Differential Total Cells Counted 100 Neutrophils % (Manual) 64 % (45-75) Lymphocytes % (Manual) 24 % (20-45) Monocytes % (Manual) 9 % (1-10) Eosinophils % (Manual) 3 % (0-3) Basophils % (Manual) 0 % (0-2) Band Neutrophils 0 % (0-8) Platelet Estimate Decreased L Platelet Morphology Normal Hypochromasia 1+ Anisocytosis 1+ Microcytosis 1+ Sodium Level 135 MMOL/L (136-145) L Potassium Level 4.3 MMOL/L (3.5-5.1) Chloride Level 93 MMOL/L (98-107) L Carbon Dioxide Level 32 MMOL/L (21-32) Anion Gap 10 mmol/L (5-15) Blood Urea Nitrogen 57 mg/dL (7-18) H Creatinine 6.5 MG/DL (0.55-1.30) H Estimat Glomerular Filtration Rate 7.9 mL/min (>60) Glucose Level 119 MG/DL (74-106) H Calcium Level 8.2 MG/DL (8.5-10.1) L Phosphorus Level 6.9 MG/DL (2.5-4.9) H Total Bilirubin 0.7 MG/DL (0.2-1.0) Aspartate Amino Transf (AST/SGOT) 24 U/L (15-37) Alanine Aminotransferase (ALT/SGPT) 35 U/L (12-78) Alkaline Phosphatase 359 U/L (46-116) H Total Protein 8.0 G/DL (6.4-8.2) Albumin 3.7 G/DL (3.4-5.0) Globulin 4.3 g/dL Albumin/Globulin Ratio 0.9 (1.0-2.7) L Current Medications Medications (Trade) Dose Ordered Sig/Josi Route PRN Reason Start Time Stop Time Status Last Admin Dose Admin Acetaminophen (Tylenol) 650 mg Q4H PRN ORAL Mild Pain/Temp > 100.5 10/15/19 08:15 11/14/19 08:14 Amlodipine Besylate (Norvasc) 10 mg DAILY ORAL 10/16/19 09:00 11/14/19 08:59 10/19/19 08:00 Atorvastatin Calcium (Lipitor) 10 mg BEDTIME ORAL 10/15/19 21:00 11/14/19 20:59 10/18/19 20:19 Chlorhexidine Gluconate (Jenny-Hex 2%) 1 applic DAILY@1999 TOPIC 10/16/19 20:00 11/15/19 19:59 10/18/19 20:16 Clonidine HCl (Catapres Tab) 0.1 mg Q4H PRN ORAL SBP>160mmHg 10/15/19 08:15 11/14/19 08:14 10/18/19 22:33 Dextrose (Dextrose 50%) 25 ml Q30M PRN IV Hypoglycemia 10/15/19 08:30 11/14/19 08:23 Dextrose (Dextrose 50%) 50 ml Q30M PRN IV hypoglycemia 10/15/19 08:30 11/14/19 08:29 10/18/19 04:45 Diphenhydramine HCl (Benadryl) 50 mg Q6H PRN ORAL Itching 10/15/19 08:15 11/14/19 08:14 10/18/19 15:16 Docusate Sodium (Colace) 100 mg TID ORAL 10/15/19 13:00 11/14/19 08:59 10/19/19 08:00 Epoetin [place] De [place] (Epoetin Jose De Jesus(ESRD on dialysis)) 10,000 unit SUN-SUN-SUN SUBQ 10/15/19 21:00 11/14/19 20:59 10/17/19 21:03 Gabapentin (Neurontin) 300 mg DAILY ORAL 10/15/19 09:00 11/14/19 08:59 10/19/19 08:00 Heparin Sodium (Porcine) (Heparin 5000 units/ml) 5,000 units EVERY 12 HOURS SUBQ 10/16/19 09:00 11/15/19 08:59 10/16/19 09:19 Hydromorphone HCl (Dilaudid) 0.5 mg Q6H PRN IVP SEVERE BREAKTHROUGH PAIN 10/15/19 08:30 10/22/19 08:14 Insulin Aspart (NovoLOG) BEFORE MEALS AND HS SUBQ 10/15/19 11:30 11/14/19 11:29 10/18/19 21:04 Ipratropium [place] (Atrovent) 500 mcg Q4H PRN HHN Shortness of Breath 10/15/19 08:15 10/20/19 08:14 Iron Sucrose 100 mg/Sodium Chloride 60 ml @ 240 mls/hr BEDTIME IV 10/16/19 21:00 10/20/19 21:14 10/18/19 20:25 Lactulose (Cephulac) 10 gm THREE TIMES A DAY ORAL 10/19/19 13:00 11/18/19 12:59 Lorazepam (Ativan) 1 mg Q6H PRN ORAL For Anxiety 10/15/19 08:15 10/22/19 08:14 Morphine Sulfate (Morphine Sulfate) 2 mg Q4H PRN IV Severe Pain (Pain Scale 7-10) 10/17/19 12:05 10/23/19 20:04 10/19/19 03:01 Ondansetron HCl (Zofran) 4 mg Q6H PRN IVP Nausea & Vomiting 10/18/19 06:45 11/17/19 06:44 Pantoprazole (Protonix) 40 mg DAILY ORAL 10/17/19 09:00 11/14/19 08:59 10/19/19 08:03 Polyethylene Glycol (Miralax) 17 gm BEDTIME ORAL 10/15/19 21:00 11/14/19 20:59 10/18/19 20:20 Polyethylene Glycol (Miralax) 17 gm DAILYPRN PRN ORAL Constipation 10/15/19 08:15 11/14/19 08:14 Pyridoxine HCl (Vitamin B6) 50 mg DAILY ORAL 10/15/19 10:00 11/14/19 09:59 10/19/19 08:00 Sitagliptin Phosphate (Januvia) 25 mg DAILY ORAL 10/15/19 10:00 11/14/19 09:59 10/19/19 08:00 Thiamine HCl (Vitamin B1) 100 mg DAILY ORAL 10/15/19 09:00 11/14/19 08:59 10/19/19 08:00 Zolpidem Tartrate (Ambien) 5 mg HSPRN PRN ORAL Insomnia 10/15/19 21:00 10/22/19 20:59 10/18/19 20:19 Clarice Nicolas MD Oct 19, 2019 12:09
[2019-10-19] MEDS: Lactulose 20gm/30ml UDC ORAL SCH ×2 (12:59→17:37)
--- NOTE | 2019-10-19 15:22 | Nephrology Progress Note ---
Assessment/Plan Problem List: (1) End stage renal disease on dialysis (2) UTI (urinary tract infection) (3) Morbid obesity (4) Coronary artery disease (5) Hypertension (6) Anemia (7) Patient is Denominational Assessment End stage renal disease on dialysis UTI (urinary tract infection) Pyelonephritis Hyperkalemia morbid obesity Anemia / Jehova's witness CAD previous stent HTN s/p AVG DM 2 bilateral eye blindness h/o CHF Plan Dialysis next 10/20 Kayexelate for high K Venofer and EPO, thiamin and b6 diet to renal , medium CHO per consultants Subjective ROS Limited/Unobtainable: No Constitutional: Reports: malaise Objective Objective Last 24 Hour Vital Signs Date Time Temp Pulse Resp B/P (MAP) Pulse Ox O2 Delivery O2 Flow Rate FiO2 10/19/19 12:04 96.8 98 20 132/90 (104) 96 10/19/19 08:00 97.5 96 20 152/96 (114) 97 10/19/19 08:00 60 157/93 10/19/19 08:00 Room Air 10/19/19 04:00 97.0 60 20 157/93 (114) 97 10/19/19 00:00 97.0 62 18 157/95 (115) 99 10/18/19 22:33 169/98 10/18/19 21:00 Room Air 10/18/19 20:18 64 20 96 Room Air 21 10/18/19 20:00 97.3 60 20 169/98 (121) 97 10/18/19 16:43 98.0 66 18 150/84 (106) 97 Intake and Output 10/18/19 10/19/19 19:00 07:00 Intake Total 1200 ml Balance 1200 ml Intake Oral 1200 ml # Voids 1 # Bowel Movements 1 Laboratory Tests 10/19/19 05:35: White Blood Count 5.0, Red Blood Count 3.16L, Hemoglobin 7.8L, Hematocrit 24.9L , Mean Corpuscular Volume 79L, Mean Corpuscular Hemoglobin 24.5L, Mean Corpuscular Hemoglobin Concent 31.1L, Red Cell Distribution Width 18.3H, Platelet Count 99L, Mean Platelet Volume 6.9, Neutrophils (%) (Auto) , Lymphocytes (%) (Auto) , Monocytes (%) (Auto) , Eosinophils (%) (Auto) , Basophils (%) (Auto) , Differential Total Cells Counted 100, Neutrophils % ( Manual) 64, Lymphocytes % (Manual) 24, Monocytes % (Manual) 9, Eosinophils % ( Manual) 3, Basophils % (Manual) 0, Band Neutrophils 0, Platelet Estimate DecreasedL, Platelet Morphology Normal, Hypochromasia 1+, Anisocytosis 1+, Microcytosis 1+, Sodium Level 135L, Potassium Level 4.3, Chloride Level 93L, Carbon Dioxide Level 32, Anion Gap 10, Blood Urea Nitrogen 57H, Creatinine 6.5H , Estimat Glomerular Filtration Rate 7.9, Glucose Level 119H, Calcium Level 8.2L , Phosphorus Level 6.9H, Total Bilirubin 0.7, Aspartate Amino Transf (AST/SGOT) 24, Alanine Aminotransferase (ALT/SGPT) 35, Alkaline Phosphatase 359H, Total Protein 8.0, Albumin 3.7, Globulin 4.3, Albumin/Globulin Ratio 0.9L Height (Feet): 5 Height (Inches): 5.00 Weight (Pounds): 278 General Appearance: no apparent distress Objective no change Bryan Hunter MD Oct 19, 2019 15:22
--- NOTE | 2019-10-19 15:24 | Nephrology Progress Note ---
Assessment/Plan Problem List: (1) End stage renal disease on dialysis (2) UTI (urinary tract infection) (3) Morbid obesity (4) Coronary artery disease (5) Hypertension (6) Anemia (7) Patient is Moravian Assessment End stage renal disease on dialysis UTI (urinary tract infection) Pyelonephritis Hyperkalemia morbid obesity Anemia / Jehova's witness CAD previous stent HTN s/p AVG DM 2 bilateral eye blindness h/o CHF Plan Phos binders Dialysis next 10/20 Kayexelate for high K Venofer and EPO, thiamin and b6 diet to renal , medium CHO per consultants Subjective ROS Limited/Unobtainable: No Constitutional: Reports: malaise, weakness Objective Objective Last 24 Hour Vital Signs Date Time Temp Pulse Resp B/P (MAP) Pulse Ox O2 Delivery O2 Flow Rate FiO2 10/19/19 12:04 96.8 98 20 132/90 (104) 96 10/19/19 08:00 97.5 96 20 152/96 (114) 97 10/19/19 08:00 60 157/93 10/19/19 08:00 Room Air 10/19/19 04:00 97.0 60 20 157/93 (114) 97 10/19/19 00:00 97.0 62 18 157/95 (115) 99 10/18/19 22:33 169/98 10/18/19 21:00 Room Air 10/18/19 20:18 64 20 96 Room Air 21 10/18/19 20:00 97.3 60 20 169/98 (121) 97 10/18/19 16:43 98.0 66 18 150/84 (106) 97 Intake and Output 10/18/19 10/19/19 19:00 07:00 Intake Total 1200 ml Balance 1200 ml Intake Oral 1200 ml # Voids 1 # Bowel Movements 1 Laboratory Tests 10/19/19 05:35: White Blood Count 5.0, Red Blood Count 3.16L, Hemoglobin 7.8L, Hematocrit 24.9L , Mean Corpuscular Volume 79L, Mean Corpuscular Hemoglobin 24.5L, Mean Corpuscular Hemoglobin Concent 31.1L, Red Cell Distribution Width 18.3H, Platelet Count 99L, Mean Platelet Volume 6.9, Neutrophils (%) (Auto) , Lymphocytes (%) (Auto) , Monocytes (%) (Auto) , Eosinophils (%) (Auto) , Basophils (%) (Auto) , Differential Total Cells Counted 100, Neutrophils % ( Manual) 64, Lymphocytes % (Manual) 24, Monocytes % (Manual) 9, Eosinophils % ( Manual) 3, Basophils % (Manual) 0, Band Neutrophils 0, Platelet Estimate DecreasedL, Platelet Morphology Normal, Hypochromasia 1+, Anisocytosis 1+, Microcytosis 1+, Sodium Level 135L, Potassium Level 4.3, Chloride Level 93L, Carbon Dioxide Level 32, Anion Gap 10, Blood Urea Nitrogen 57H, Creatinine 6.5H , Estimat Glomerular Filtration Rate 7.9, Glucose Level 119H, Calcium Level 8.2L , Phosphorus Level 6.9H, Total Bilirubin 0.7, Aspartate Amino Transf (AST/SGOT) 24, Alanine Aminotransferase (ALT/SGPT) 35, Alkaline Phosphatase 359H, Total Protein 8.0, Albumin 3.7, Globulin 4.3, Albumin/Globulin Ratio 0.9L Height (Feet): 5 Height (Inches): 5.00 Weight (Pounds): 278 General Appearance: no apparent distress Cardiovascular: normal rate Respiratory/Chest: decreased breath sounds Abdomen: soft Objective no change Bryan Hunter MD Oct 19, 2019 15:24
[2019-10-19] MEDS: Ertapenem 0.5 GM in NS 55 ML IVPB SCH (15:27)
--- NOTE | 2019-10-19 15:34 | General Progress Note ---
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 ICD Codes: E11.49 - Type 2 diabetes mellitus with other diabetic neurological complication SNOMED: 32154813, 138641116 (2) ESRD (end stage renal disease) on dialysis ICD Codes: N18.6 - End stage renal disease; Z99.2 - Dependence on renal dialysis SNOMED: 456808831 (3) Congestive heart failure (CHF) ICD Codes: I50.9 - Heart failure, unspecified SNOMED: 95304855 Status: unchanged Assessment/Plan: no need for basal insulin continue Januvia 25 mg daily continue NISS ac / hs hypoglycemia protocol in order Subjective Allergies: Coded Allergies: NO KNOWN ALLERGIES (Unverified Allergy, Unknown, 10/15/15) All Systems: reviewed and negative except above Subjective events noted glucose values are stable w/o hypoglycemia she did not require basal insulin Item Value Date Time Bedside Blood Glucose 127 mg/dl H 10/19/19 1211 Bedside Blood Glucose 107 mg/dl 10/19/19 0540 Bedside Blood Glucose 147 mg/dl H 10/18/19 2104 Bedside Blood Glucose 139 mg/dl H 10/18/19 1716 Objective Last 24 Hour Vital Signs Date Time Temp Pulse Resp B/P (MAP) Pulse Ox O2 Delivery O2 Flow Rate FiO2 10/19/19 12:04 96.8 98 20 132/90 (104) 96 10/19/19 08:00 97.5 96 20 152/96 (114) 97 10/19/19 08:00 60 157/93 10/19/19 08:00 Room Air 10/19/19 04:00 97.0 60 20 157/93 (114) 97 10/19/19 00:00 97.0 62 18 157/95 (115) 99 10/18/19 22:33 169/98 10/18/19 21:00 Room Air 10/18/19 20:18 64 20 96 Room Air 21 10/18/19 20:00 97.3 60 20 169/98 (121) 97 10/18/19 16:43 98.0 66 18 150/84 (106) 97 Intake and Output 10/18/19 10/19/19 19:00 07:00 Intake Total 1200 ml Balance 1200 ml Intake Oral 1200 ml # Voids 1 # Bowel Movements 1 Laboratory Tests 10/19/19 05:35: White Blood Count 5.0, Red Blood Count 3.16L, Hemoglobin 7.8L, Hematocrit 24.9L , Mean Corpuscular Volume 79L, Mean Corpuscular Hemoglobin 24.5L, Mean Corpuscular Hemoglobin Concent 31.1L, Red Cell Distribution Width 18.3H, Platelet Count 99L, Mean Platelet Volume 6.9, Neutrophils (%) (Auto) , Lymphocytes (%) (Auto) , Monocytes (%) (Auto) , Eosinophils (%) (Auto) , Basophils (%) (Auto) , Differential Total Cells Counted 100, Neutrophils % ( Manual) 64, Lymphocytes % (Manual) 24, Monocytes % (Manual) 9, Eosinophils % ( Manual) 3, Basophils % (Manual) 0, Band Neutrophils 0, Platelet Estimate DecreasedL, Platelet Morphology Normal, Hypochromasia 1+, Anisocytosis 1+, Microcytosis 1+, Sodium Level 135L, Potassium Level 4.3, Chloride Level 93L, Carbon Dioxide Level 32, Anion Gap 10, Blood Urea Nitrogen 57H, Creatinine 6.5H , Estimat Glomerular Filtration Rate 7.9, Glucose Level 119H, Calcium Level 8.2L , Phosphorus Level 6.9H, Total Bilirubin 0.7, Aspartate Amino Transf (AST/SGOT) 24, Alanine Aminotransferase (ALT/SGPT) 35, Alkaline Phosphatase 359H, Total Protein 8.0, Albumin 3.7, Globulin 4.3, Albumin/Globulin Ratio 0.9L Height (Feet): 5 Height (Inches): 5.00 Weight (Pounds): 278 General Appearance: no apparent distress EENT: other - blind Neck: normal alignment Cardiovascular: normal peripheral pulses Respiratory/Chest: lungs clear Edema: 1+ Arm (L), 1+ Arm (R), 1+ Leg (L), 1+ Leg (R), 1+ Pedal (L), 1+ Pedal ( R), 1+ Generalized Objective Current Medications Medications (Trade) Dose Ordered Sig/Josi Route PRN Reason Start Time Stop Time Status Last Admin Dose Admin Acetaminophen (Tylenol) 650 mg Q4H PRN ORAL Mild Pain/Temp > 100.5 10/15/19 08:15 11/14/19 08:14 Amlodipine Besylate (Norvasc) 10 mg DAILY ORAL 10/16/19 09:00 11/14/19 08:59 10/19/19 08:00 Atorvastatin Calcium (Lipitor) 10 mg BEDTIME ORAL 10/15/19 21:00 11/14/19 20:59 10/18/19 20:19 Chlorhexidine Gluconate (Jenny-Hex 2%) 1 applic DAILY@2000 TOPIC 10/16/19 20:00 11/15/19 19:59 10/18/19 20:16 Clonidine HCl (Catapres Tab) 0.1 mg Q4H PRN ORAL SBP>160mmHg 10/15/19 08:15 11/14/19 08:14 10/18/19 22:33 Dextrose (Dextrose 50%) 25 ml Q30M PRN IV Hypoglycemia 10/15/19 08:30 11/14/19 08:23 Dextrose (Dextrose 50%) 50 ml Q30M PRN IV hypoglycemia 10/15/19 08:30 11/14/19 08:29 10/18/19 04:45 Diphenhydramine HCl (Benadryl) 50 mg Q6H PRN ORAL Itching 10/15/19 08:15 11/14/19 08:14 10/19/19 13:01 Docusate Sodium (Colace) 100 mg TID ORAL 10/15/19 13:00 11/14/19 08:59 10/19/19 12:11 Epoetin Jose De Jesus (Epoetin Jose De Jesus(ESRD on dialysis)) 10,000 unit SUN-SUN-SUN SUBQ 10/15/19 21:00 11/14/19 20:59 10/17/19 21:03 Ertapenem 0.5 gm/ Sodium Chloride 55 ml @ 110 mls/hr Q24H IVPB 10/19/19 16:00 10/24/19 15:59 10/19/19 15:27 Gabapentin (Neurontin) 300 mg DAILY ORAL 10/15/19 09:00 11/14/19 08:59 10/19/19 08:00 Heparin Sodium (Porcine) (Heparin 5000 units/ml) 5,000 units EVERY 12 HOURS SUBQ 10/16/19 09:00 11/15/19 08:59 10/16/19 09:19 Hydromorphone HCl (Dilaudid) 0.5 mg Q6H PRN IVP SEVERE BREAKTHROUGH PAIN 10/15/19 08:30 10/22/19 08:14 Insulin Aspart (NovoLOG) BEFORE MEALS AND HS SUBQ 10/15/19 11:30 11/14/19 11:29 10/19/19 12:11 Ipratropium [place] (Atrovent) 500 mcg Q4H PRN HHN Shortness of Breath 10/15/19 08:15 10/20/19 08:14 Iron Sucrose 100 mg/Sodium Chloride 60 ml @ 240 mls/hr BEDTIME IV 10/16/19 21:00 10/20/19 21:14 10/18/19 20:25 Lactulose (Cephulac) 10 gm THREE TIMES A DAY ORAL 10/19/19 13:00 11/18/19 12:59 10/19/19 12:59 Lorazepam (Ativan) 1 mg Q6H PRN ORAL For Anxiety 10/15/19 08:15 10/22/19 08:14 Morphine Sulfate (Morphine Sulfate) 2 mg Q4H PRN IV Severe Pain (Pain Scale 7-10) 10/17/19 12:05 10/23/19 20:04 10/19/19 03:01 Ondansetron HCl (Zofran) 4 mg Q6H PRN IVP Nausea & Vomiting 10/18/19 06:45 11/17/19 06:44 Pantoprazole (Protonix) 40 mg DAILY ORAL 10/17/19 09:00 11/14/19 08:59 10/19/19 08:03 Polyethylene Glycol (Miralax) 17 gm BEDTIME ORAL 10/15/19 21:00 11/14/19 20:59 10/18/19 20:20 Polyethylene Glycol (Miralax) 17 gm DAILYPRN PRN ORAL Constipation 10/15/19 08:15 11/14/19 08:14 Pyridoxine HCl (Vitamin B6) 50 mg DAILY ORAL 10/15/19 10:00 11/14/19 09:59 10/19/19 08:00 Sevelamer Carbonate (Renvela) 1,600 mg THREE TIMES A DAY ORAL 10/19/19 18:00 11/18/19 17:59 Sitagliptin Phosphate (Januvia) 25 mg DAILY ORAL 10/15/19 10:00 11/14/19 09:59 10/19/19 08:00 Thiamine HCl (Vitamin B1) 100 mg DAILY ORAL 10/15/19 09:00 11/14/19 08:59 10/19/19 08:00 Zolpidem Tartrate (Ambien) 5 mg HSPRN PRN ORAL Insomnia 10/15/19 21:00 10/22/19 20:59 10/18/19 20:19 Franko Rogel MD Oct 19, 2019 15:34
[2019-10-19 16:03] VITALS: BP 134/88
[2019-10-19] MEDS ORDERED: Ertapenem 1 GM in NS 55 ML IVPB SCH (18:00)
--- NOTE | 2019-10-19 18:03 | Hematology/Onc Progress Note ---
Assessment/Plan Assessment/Plan Assessment/Plan # Anemia of chronic disease due to underlying chronic medical issues, multifactorial. 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 Hx of esrd on hd. --> Trend Hgb remains low at 8.9-->7.8 --> Prior anemia w/u has been reviewed. Ferritin >2000 --> No evidence of hemolysis is noted, peripheral smear has been reviewed. --> Hgb goal >7. Transfuse prn. --> EGD 10/24/18 completed, appreciate gir ecs --> off heparin sq at this time, is on scds --> bone marrow biopsy not needed given likely case ESRD --> EPOGEN since patient is a Bahai --> IRON IV since Bahai and no significant iron overload yet # Anemia of chronic kidney disease. --> Jehovah Witness and does not take any blood products --> on epogen, will continue --> b1, b12, folate as outpatient as well # End-stage renal disease on hemodialysis. Nephro is following, appreciate recs. --> The patient is on hemodialysis due to shortness of breath. --> has to have ferritin >500 especially since JW --> HD 3x a week mext 11.25 # Hypertension. Cardiology is following, appreciate recs. --> stress test pending as per cards, most recent test was negative per Dr. Vinson --> Adjust medications as appropriate. # Diabetes mellitus per primary care physician. --> Cont on insulin --> Cont to monitor BS levels # back pain -- consider pain service eval as required --> opiates as needed, imaging to eval # Left distal tibial oblique fracture of the distal fibular diaphysis --> as per ortho recs : Appreciate consult and dw RN and pcp Subjective HEENT: Denies: no symptoms, eye pain, blurred vision, tearing, double vision, ear pain, ear discharge, nose pain, nose congestion, throat pain, throat swelling, mouth pain, mouth swelling, other Cardiovascular: Denies: no symptoms, chest pain, edema, irregular heart rate, lightheadedness, palpitations, syncope, other Respiratory: Denies: no symptoms, cough, shortness of breath, SOB with excertion, SOB at rest, sputum, wheezing, other Gastrointestinal/Abdominal: Denies: no symptoms, abdomen distended, abdominal pain, black stools, tarry stools, blood in stool, constipated, diarrhea, difficulty swallowing, nausea, poor appetite, poor fluid intake, rectal bleeding , vomiting, other Genitourinary: Denies: no symptoms, burning, discharge, frequency, flank pain, hematuria, incontinence, pain, urgency, other Neurologic/Psychiatric: Denies: no symptoms, anxiety, depressed, emotional problems, headache, numbness, paresthesia, pre-existing deficit, seizure, tingling, tremors, weakness, other Endocrine: Denies: no symptoms, excessive sweating, flushing, intolerance to cold, intolerance to heat, increased hunger, increased thirst, increased urine, unexplained weight gain, unexplained weight loss, other Allergies: Coded Allergies: NO KNOWN ALLERGIES (Unverified Allergy, Unknown, 10/15/15) Subjective 10/19: hard of hearing, cannot see either, refusing prbc, on epo and iron, dw rn Objective Objective Current Medications Medications (Trade) Dose Ordered Sig/Josi Route PRN Reason Start Time Stop Time Status Last Admin Dose Admin Acetaminophen (Tylenol) 650 mg Q4H PRN ORAL Mild Pain/Temp > 100.5 10/15/19 08:15 11/14/19 08:14 Amlodipine Besylate (Norvasc) 10 mg DAILY ORAL 10/16/19 09:00 11/14/19 08:59 10/19/19 08:00 Atorvastatin Calcium (Lipitor) 10 mg BEDTIME ORAL 10/15/19 21:00 11/14/19 20:59 10/18/19 20:19 Chlorhexidine Gluconate (Jenny-Hex 2%) 1 applic DAILY@1999 TOPIC 10/16/19 20:00 11/15/19 19:59 10/18/19 20:16 Clonidine HCl (Catapres Tab) 0.1 mg Q4H PRN ORAL SBP>160mmHg 10/15/19 08:15 11/14/19 08:14 10/18/19 22:33 Dextrose (Dextrose 50%) 25 ml Q30M PRN IV Hypoglycemia 10/15/19 08:30 11/14/19 08:23 Dextrose (Dextrose 50%) 50 ml Q30M PRN IV hypoglycemia 10/15/19 08:30 11/14/19 08:29 10/18/19 04:45 Diphenhydramine HCl (Benadryl) 50 mg Q6H PRN ORAL Itching 10/15/19 08:15 11/14/19 08:14 10/19/19 13:01 Docusate Sodium (Colace) 100 mg TID ORAL 10/15/19 13:00 11/14/19 08:59 10/19/19 17:36 Epoetin Jose De Jesus (Epoetin Jose De Jesus(ESRD on dialysis)) 10,000 unit SUN-SUN-SUN SUBQ 10/15/19 21:00 11/14/19 20:59 10/17/19 21:03 Ertapenem 0.5 gm/ Sodium Chloride 55 ml @ 110 mls/hr Q24H IVPB 10/19/19 16:00 10/24/19 15:59 10/19/19 15:27 Gabapentin (Neurontin) 300 mg DAILY ORAL 10/15/19 09:00 11/14/19 08:59 10/19/19 08:00 Heparin Sodium (Porcine) (Heparin 5000 units/ml) 5,000 units EVERY 12 HOURS SUBQ 10/16/19 09:00 11/15/19 08:59 10/16/19 09:19 Hydromorphone HCl (Dilaudid) 0.5 mg Q6H PRN IVP SEVERE BREAKTHROUGH PAIN 10/15/19 08:30 10/22/19 08:14 Insulin Aspart (NovoLOG) BEFORE MEALS AND HS SUBQ 10/15/19 11:30 11/14/19 11:29 10/19/19 12:11 [address] [place] (Atrovent) 500 mcg Q4H PRN HHN Shortness of Breath 10/15/19 08:15 10/20/19 08:14 Iron Sucrose 100 mg/Sodium Chloride 60 ml @ 240 mls/hr BEDTIME IV 10/16/19 21:00 10/20/19 21:14 10/18/19 20:25 Lactulose (Cephulac) 10 gm THREE TIMES A DAY ORAL 10/19/19 13:00 11/18/19 12:59 10/19/19 12:59 Lorazepam (Ativan) 1 mg Q6H PRN ORAL For Anxiety 10/15/19 08:15 10/22/19 08:14 Morphine Sulfate (Morphine Sulfate) 2 mg Q4H PRN IV Severe Pain (Pain Scale 7-10) 10/17/19 12:05 10/23/19 20:04 10/19/19 03:01 Ondansetron HCl (Zofran) 4 mg Q6H PRN IVP Nausea & Vomiting 10/18/19 06:45 11/17/19 06:44 Pantoprazole (Protonix) 40 mg DAILY ORAL 10/17/19 09:00 11/14/19 08:59 10/19/19 08:03 Polyethylene Glycol (Miralax) 17 gm BEDTIME ORAL 10/15/19 21:00 11/14/19 20:59 10/18/19 20:20 Polyethylene Glycol (Miralax) 17 gm DAILYPRN PRN ORAL Constipation 10/15/19 08:15 11/14/19 08:14 Pyridoxine HCl (Vitamin B6) 50 mg DAILY ORAL 10/15/19 10:00 11/14/19 09:59 10/19/19 08:00 Sevelamer Carbonate (Renvela) 1,600 mg THREE TIMES A DAY ORAL 10/19/19 18:00 11/18/19 17:59 10/19/19 17:36 Sitagliptin Phosphate (Januvia) 25 mg DAILY ORAL 10/15/19 10:00 11/14/19 09:59 10/19/19 08:00 Thiamine HCl (Vitamin B1) 100 mg DAILY ORAL 10/15/19 09:00 11/14/19 08:59 10/19/19 08:00 Zolpidem Tartrate (Ambien) 5 mg HSPRN PRN ORAL Insomnia 10/15/19 21:00 10/22/19 20:59 10/18/19 20:19 Last 24 Hour Vital Signs Date Time Temp Pulse Resp B/P (MAP) Pulse Ox O2 Delivery O2 Flow Rate FiO2 10/19/19 16:03 97.0 93 20 134/88 (103) 96 10/19/19 12:04 96.8 98 20 132/90 (104) 96 10/19/19 08:00 97.5 96 20 152/96 (114) 97 10/19/19 08:00 60 157/93 10/19/19 08:00 Room Air 10/19/19 04:00 97.0 60 20 157/93 (114) 97 10/19/19 00:00 97.0 62 18 157/95 (115) 99 10/18/19 22:33 169/98 10/18/19 21:00 Room Air 10/18/19 20:18 64 20 96 Room Air 21 10/18/19 20:00 97.3 60 20 169/98 (121) 97 10/18/19 16:43 98.0 66 18 150/84 (106) 97 10/18/19 12:00 97.9 60 16 157/99 (118) 97 10/18/19 09:00 Room Air 10/18/19 08:29 61 158/69 10/18/19 08:00 97.8 61 19 158/69 (98) 97 10/18/19 07:49 67 20 98 Room Air 21 10/18/19 04:00 97.9 61 20 158/69 (98) 97 10/18/19 00:00 97.7 60 18 156/93 (114) 98 10/17/19 21:03 161/83 10/17/19 21:00 Room Air 10/17/19 20:00 97.3 61 20 161/83 (109) 98 10/17/19 19:48 71 18 97 Room Air 21 Intake and Output 10/18/19 10/19/19 19:00 07:00 Intake Total 1200 ml Balance 1200 ml Intake Oral 1200 ml # Voids 1 # Bowel Movements 1 Labs Test 10/17/19 05:30 10/17/19 17:00 10/18/19 05:45 10/19/19 05:35 White Blood Count 5.6 K/UL (4.8-10.8) 4.7 K/UL (4.8-10.8) 5.0 K/UL (4.8-10.8) Red Blood Count 3.64 M/UL (4.20-5.40) 3.36 M/UL (4.20-5.40) 3.16 M/UL (4.20-5.40) Hemoglobin 9.0 G/DL (12.0-16.0) 8.2 G/DL (12.0-16.0) 7.8 G/DL (12.0-16.0) Hematocrit 28.8 % (37.0-47.0) 26.3 % (37.0-47.0) 24.9 % (37.0-47.0) Mean Corpuscular Volume 79 FL (80-99) 78 FL (80-99) 79 FL (80-99) Mean Corpuscular Hemoglobin 24.6 PG (27.0-31.0) 24.4 PG (27.0-31.0) 24.5 PG (27.0-31.0) Mean Corpuscular Hemoglobin Concent 31.1 G/DL (32.0-36.0) 31.2 G/DL (32.0-36.0) 31.1 G/DL (32.0-36.0) Red Cell Distribution Width 16.9 % (11.6-14.8) 17.6 % (11.6-14.8) 18.3 % (11.6-14.8) Platelet Count 133 K/UL (150-450) 107 K/UL (150-450) 99 K/UL (150-450) Mean Platelet Volume 7.1 FL (6.5-10.1) 6.6 FL (6.5-10.1) 6.9 FL (6.5-10.1) Neutrophils (%) (Auto) 55.3 % (45.0-75.0) 51.4 % (45.0-75.0) % (45.0-75.0) Lymphocytes (%) (Auto) 25.2 % (20.0-45.0) 26.7 % (20.0-45.0) % (20.0-45.0) Monocytes (%) (Auto) 14.5 % (1.0-10.0) 16.3 % (1.0-10.0) % (1.0-10.0) Eosinophils (%) (Auto) 4.1 % (0.0-3.0) 4.9 % (0.0-3.0) % (0.0-3.0) Basophils (%) (Auto) 1.0 % (0.0-2.0) 0.7 % (0.0-2.0) % (0.0-2.0) Sodium Level 132 MMOL/L (136-145) 130 MMOL/L (136-145) 135 MMOL/L (136-145) Potassium Level 5.6 MMOL/L (3.5-5.1) 4.9 MMOL/L (3.5-5.1) 4.3 MMOL/L (3.5-5.1) Chloride Level 93 MMOL/L (98-107) 89 MMOL/L (98-107) 93 MMOL/L (98-107) Carbon Dioxide Level 35 MMOL/L (21-32) 34 MMOL/L (21-32) 32 MMOL/L (21-32) Anion Gap 4 mmol/L (5-15) 7 mmol/L (5-15) 10 mmol/L (5-15) Blood Urea Nitrogen 58 mg/dL (7-18) 67 mg/dL (7-18) 57 mg/dL (7-18) Creatinine 6.4 MG/DL (0.55-1.30) 7.6 MG/DL (0.55-1.30) 6.5 MG/DL (0.55-1.30) Estimat Glomerular Filtration Rate 8.0 mL/min (>60) 6.5 mL/min (>60) 7.9 mL/min (>60) Glucose Level 182 MG/DL (74-106) 125 MG/DL (74-106) 119 MG/DL (74-106) Calcium Level 8.6 MG/DL (8.5-10.1) 8.5 MG/DL (8.5-10.1) 8.2 MG/DL (8.5-10.1) Total Bilirubin 0.8 MG/DL (0.2-1.0) 0.7 MG/DL (0.2-1.0) Aspartate Amino Transf (AST/SGOT) 32 U/L (15-37) 24 U/L (15-37) Alanine Aminotransferase (ALT/SGPT) 45 U/L (12-78) 35 U/L (12-78) Alkaline Phosphatase 393 U/L (46-116) 359 U/L (46-116) Total Protein 8.7 G/DL (6.4-8.2) 8.0 G/DL (6.4-8.2) Albumin 4.2 G/DL (3.4-5.0) 3.7 G/DL (3.4-5.0) Globulin 4.5 g/dL 4.3 g/dL Albumin/Globulin Ratio 0.9 (1.0-2.7) 0.9 (1.0-2.7) Stool Occult Blood Positive (NEGATIVE) Differential Total Cells Counted 100 Neutrophils % (Manual) 64 % (45-75) Lymphocytes % (Manual) 24 % (20-45) Monocytes % (Manual) 9 % (1-10) Eosinophils % (Manual) 3 % (0-3) Basophils % (Manual) 0 % (0-2) Band Neutrophils 0 % (0-8) Platelet Estimate Decreased Platelet Morphology Normal Hypochromasia 1+ Anisocytosis 1+ Microcytosis 1+ Phosphorus Level 6.9 MG/DL (2.5-4.9) Height (Feet): 5 Height (Inches): 5.00 Weight (Pounds): 278 Objective Gen: hard of hearing, can't see, obese Pulm: decreased sounds b/l CV: rrr, no mgr Abd: soft, obese, nt Ext: 1+ edema Malick Lizama MD Oct 19, 2019 18:03
[2019-10-19 20:00] VITALS: BP 140/70
[2019-10-19] MEDS: Dyna-Hex 2% Top Sol 2oz TOPIC SCH (20:00)
[2019-10-19] MEDS: Iron Sucrose 100 MG in NS 55 ML IV SCH (20:48)
[2019-10-19] MEDS: Miralax 17gm pkt ORAL SCH (20:53)
[2019-10-20] VITALS (8 sets, daily range): BP systolic 135–185; BP diastolic 68–112
--- NOTE | 2019-10-20 06:10 | Hematology/Onc Progress Note ---
Assessment/Plan Assessment/Plan Assessment/Plan # Anemia of chronic disease due to underlying chronic medical issues, multifactorial. 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 Hx of esrd on hd. --> Trend Hgb remains low at 8.9-->7.8 --> Prior anemia w/u has been reviewed. Ferritin >2000 --> No evidence of hemolysis is noted, peripheral smear has been reviewed. --> Hgb goal >7. Transfuse prn. 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 --> Jehovah Witness and does not take any blood products --> on epogen, will continue --> b1, b12, folate as outpatient as well # End-stage renal disease on hemodialysis. Nephro is following, appreciate recs. --> The patient is on hemodialysis due to shortness of breath. --> has to have ferritin >500 especially since JW --> HD 3x a week # Hypertension. Cardiology is following, appreciate recs. --> stress test pending as per cards, most recent test was negative per Dr. Vinson in past --> Adjust medications as appropriate. # Diabetes mellitus per primary care physician. --> Cont on insulin --> Cont to monitor BS levels # back pain -- consider pain service eval as required --> opiates as needed, imaging to eval # Left distal tibial oblique fracture of the distal fibular diaphysis --> as per ortho recs : Appreciate consult and dw RN and pcp Subjective Constitutional: Denies: no symptoms, chills, fever, malaise, weakness, other Cardiovascular: Denies: no symptoms, chest pain, edema, irregular heart rate, lightheadedness, palpitations, syncope, other Respiratory: Denies: no symptoms, cough, shortness of breath, SOB with excertion, SOB at rest, sputum, wheezing, other Gastrointestinal/Abdominal: Denies: no symptoms, abdomen distended, abdominal pain, black stools, tarry stools, blood in stool, constipated, diarrhea, difficulty swallowing, nausea, poor appetite, poor fluid intake, rectal bleeding , vomiting, other Neurologic/Psychiatric: Denies: no symptoms, anxiety, depressed, emotional problems, headache, numbness, paresthesia, pre-existing deficit, seizure, tingling, tremors, weakness, other Endocrine: Denies: no symptoms, excessive sweating, flushing, intolerance to cold, intolerance to heat, increased hunger, increased thirst, increased urine, unexplained weight gain, unexplained weight loss, other Allergies: Coded Allergies: NO KNOWN ALLERGIES (Unverified Allergy, Unknown, 10/15/15) Subjective 10/19: hard of hearing, cannot see either, refusing prbc, on epo and iron, dw rn 10/20: no events, sleeping, will rn, no bleeding, no chills, hgb pending Objective Objective Current Medications Medications (Trade) Dose Ordered Sig/Josi Route PRN Reason Start Time Stop Time Status Last Admin Dose Admin Acetaminophen (Tylenol) 650 mg Q4H PRN ORAL Mild Pain/Temp > 100.5 10/15/19 08:15 11/14/19 08:14 Amlodipine Besylate (Norvasc) 10 mg DAILY ORAL 10/16/19 09:00 11/14/19 08:59 10/19/19 08:00 Atorvastatin Calcium (Lipitor) 10 mg BEDTIME ORAL 10/15/19 21:00 11/14/19 20:59 10/19/19 20:49 Chlorhexidine Gluconate (Jenny-Hex 2%) 1 applic DAILY@2000 TOPIC 10/16/19 20:00 11/15/19 19:59 10/18/19 20:16 Clonidine HCl (Catapres Tab) 0.1 mg Q4H PRN ORAL SBP>160mmHg 10/15/19 08:15 11/14/19 08:14 10/18/19 22:33 Dextrose (Dextrose 50%) 25 ml Q30M PRN IV Hypoglycemia 10/15/19 08:30 11/14/19 08:23 Dextrose (Dextrose 50%) 50 ml Q30M PRN IV hypoglycemia 10/15/19 08:30 11/14/19 08:29 10/18/19 04:45 Diphenhydramine HCl (Benadryl) 50 mg Q6H PRN ORAL Itching 10/15/19 08:15 11/14/19 08:14 10/19/19 23:29 Docusate Sodium (Colace) 100 mg TID ORAL 10/15/19 13:00 11/14/19 08:59 10/19/19 17:36 Epoetin Jose De Jesus (Epoetin Jose De Jesus(ESRD on dialysis)) 10,000 unit SUN-SUN-SUN SUBQ 10/15/19 21:00 11/14/19 20:59 10/17/19 21:03 Ertapenem 0.5 gm/ Sodium Chloride 55 ml @ 110 mls/hr Q24H IVPB 10/19/19 16:00 10/24/19 15:59 10/19/19 15:27 Gabapentin (Neurontin) 300 mg DAILY ORAL 10/15/19 09:00 11/14/19 08:59 10/19/19 08:00 Heparin Sodium (Porcine) (Heparin 5000 units/ml) 5,000 units EVERY 12 HOURS SUBQ 10/16/19 09:00 11/15/19 08:59 10/16/19 09:19 Hydromorphone HCl (Dilaudid) 0.5 mg Q6H PRN IVP SEVERE BREAKTHROUGH PAIN 10/15/19 08:30 10/22/19 08:14 Insulin Aspart (NovoLOG) BEFORE MEALS AND HS SUBQ 10/15/19 11:30 11/14/19 11:29 10/19/19 20:18 Ipratropium [place] (Atrovent) 500 mcg Q4H PRN HHN Shortness of Breath 10/15/19 08:15 10/20/19 08:14 10/20/19 00:25 Iron Sucrose 100 mg/Sodium Chloride 60 ml @ 240 mls/hr BEDTIME IV 10/16/19 21:00 10/20/19 21:14 10/19/19 20:48 Lactulose (Cephulac) 10 gm THREE TIMES A DAY ORAL 10/19/19 13:00 11/18/19 12:59 10/19/19 12:59 Lorazepam (Ativan) 1 mg Q6H PRN ORAL For Anxiety 10/15/19 08:15 10/22/19 08:14 Morphine Sulfate (Morphine Sulfate) 2 mg Q4H PRN IV Severe Pain (Pain Scale 7-10) 10/17/19 12:05 10/23/19 20:04 10/19/19 23:29 Ondansetron HCl (Zofran) 4 mg Q6H PRN IVP Nausea & Vomiting 10/18/19 06:45 11/17/19 06:44 Pantoprazole (Protonix) 40 mg DAILY ORAL 10/17/19 09:00 11/14/19 08:59 10/19/19 08:03 Polyethylene Glycol (Miralax) 17 gm BEDTIME ORAL 10/15/19 21:00 11/14/19 20:59 10/18/19 20:20 Polyethylene Glycol (Miralax) 17 gm DAILYPRN PRN ORAL Constipation 10/15/19 08:15 11/14/19 08:14 Pyridoxine HCl (Vitamin B6) 50 mg DAILY ORAL 10/15/19 10:00 11/14/19 09:59 10/19/19 08:00 Sevelamer Carbonate (Renvela) 1,600 mg THREE TIMES A DAY ORAL 10/19/19 18:00 11/18/19 17:59 10/19/19 17:36 Sitagliptin Phosphate (Januvia) 25 mg DAILY ORAL 10/15/19 10:00 11/14/19 09:59 10/19/19 08:00 Thiamine HCl (Vitamin B1) 100 mg DAILY ORAL 10/15/19 09:00 11/14/19 08:59 10/19/19 08:00 Zolpidem Tartrate (Ambien) 5 mg HSPRN PRN ORAL Insomnia 10/15/19 21:00 10/22/19 20:59 10/18/19 20:19 Last 24 Hour Vital Signs Date Time Temp Pulse Resp B/P (MAP) Pulse Ox O2 Delivery O2 Flow Rate FiO2 10/20/19 04:00 97.0 61 19 146/80 (102) 98 10/20/19 00:34 61 20 99 Room Air 21 10/20/19 00:24 60 20 97 Room Air 21 10/20/19 00:00 97.0 57 18 135/68 (90) 98 10/19/19 20:06 86 20 96 Room Air 21 10/19/19 20:02 Room Air 10/19/19 20:00 97.0 62 20 140/70 (93) 98 10/19/19 16:03 97.0 93 20 134/88 (103) 96 10/19/19 12:04 96.8 98 20 132/90 (104) 96 10/19/19 08:00 97.5 96 20 152/96 (114) 97 10/19/19 08:00 60 157/93 10/19/19 08:00 Room Air 10/19/19 04:00 97.0 60 20 157/93 (114) 97 10/19/19 00:00 97.0 62 18 157/95 (115) 99 10/18/19 22:33 169/98 10/18/19 21:00 Room Air 10/18/19 20:18 64 20 96 Room Air 21 10/18/19 20:00 97.3 60 20 169/98 (121) 97 10/18/19 16:43 98.0 66 18 150/84 (106) 97 10/18/19 12:00 97.9 60 16 157/99 (118) 97 10/18/19 09:00 Room Air 10/18/19 08:29 61 158/69 10/18/19 08:00 97.8 61 19 158/69 (98) 97 10/18/19 07:49 67 20 98 Room Air 21 Intake and Output 10/19/19 10/20/19 19:00 07:00 Intake Total 855 ml Balance 855 ml Intake Oral 800 ml IV Total 55 ml # Voids 1 # Bowel Movements 2 Labs Test 10/17/19 17:00 10/18/19 05:45 10/19/19 05:35 Stool Occult Blood Positive (NEGATIVE) White Blood Count 4.7 K/UL (4.8-10.8) 5.0 K/UL (4.8-10.8) Red Blood Count 3.36 M/UL (4.20-5.40) 3.16 M/UL (4.20-5.40) Hemoglobin 8.2 G/DL (12.0-16.0) 7.8 G/DL (12.0-16.0) Hematocrit 26.3 % (37.0-47.0) 24.9 % (37.0-47.0) Mean Corpuscular Volume 78 FL (80-99) 79 FL (80-99) Mean Corpuscular Hemoglobin 24.4 PG (27.0-31.0) 24.5 PG (27.0-31.0) Mean Corpuscular Hemoglobin Concent 31.2 G/DL (32.0-36.0) 31.1 G/DL (32.0-36.0) Red Cell Distribution Width 17.6 % (11.6-14.8) 18.3 % (11.6-14.8) Platelet Count 107 K/UL (150-450) 99 K/UL (150-450) Mean Platelet Volume 6.6 FL (6.5-10.1) 6.9 FL (6.5-10.1) Neutrophils (%) (Auto) 51.4 % (45.0-75.0) % (45.0-75.0) Lymphocytes (%) (Auto) 26.7 % (20.0-45.0) % (20.0-45.0) Monocytes (%) (Auto) 16.3 % (1.0-10.0) % (1.0-10.0) Eosinophils (%) (Auto) 4.9 % (0.0-3.0) % (0.0-3.0) Basophils (%) (Auto) 0.7 % (0.0-2.0) % (0.0-2.0) Sodium Level 130 MMOL/L (136-145) 135 MMOL/L (136-145) Potassium Level 4.9 MMOL/L (3.5-5.1) 4.3 MMOL/L (3.5-5.1) Chloride Level 89 MMOL/L (98-107) 93 MMOL/L (98-107) Carbon Dioxide Level 34 MMOL/L (21-32) 32 MMOL/L (21-32) Anion Gap 7 mmol/L (5-15) 10 mmol/L (5-15) Blood Urea Nitrogen 67 mg/dL (7-18) 57 mg/dL (7-18) Creatinine 7.6 MG/DL (0.55-1.30) 6.5 MG/DL (0.55-1.30) Estimat Glomerular Filtration Rate 6.5 mL/min (>60) 7.9 mL/min (>60) Glucose Level 125 MG/DL (74-106) 119 MG/DL (74-106) Calcium Level 8.5 MG/DL (8.5-10.1) 8.2 MG/DL (8.5-10.1) Differential Total Cells Counted 100 Neutrophils % (Manual) 64 % (45-75) Lymphocytes % (Manual) 24 % (20-45) Monocytes % (Manual) 9 % (1-10) Eosinophils % (Manual) 3 % (0-3) Basophils % (Manual) 0 % (0-2) Band Neutrophils 0 % (0-8) Platelet Estimate Decreased Platelet Morphology Normal Hypochromasia 1+ Anisocytosis 1+ Microcytosis 1+ Phosphorus Level 6.9 MG/DL (2.5-4.9) Total Bilirubin 0.7 MG/DL (0.2-1.0) Aspartate Amino Transf (AST/SGOT) 24 U/L (15-37) Alanine Aminotransferase (ALT/SGPT) 35 U/L (12-78) Alkaline Phosphatase 359 U/L (46-116) Total Protein 8.0 G/DL (6.4-8.2) Albumin 3.7 G/DL (3.4-5.0) Globulin 4.3 g/dL Albumin/Globulin Ratio 0.9 (1.0-2.7) Height (Feet): 5 Height (Inches): 5.00 Weight (Pounds): 278 Objective Gen: hard of hearing, can't see, obese Pulm: decreased sounds b/l CV: rrr, no mgr Abd: soft, obese, nt Ext: 1+ edema Malick Lizama MD Oct 20, 2019 06:10
[2019-10-20] MEDS: Insulin NovoLOG Flexpen S/S (insulin sensitive) SUBQ SCH ×4 (06:23→20:47)
[2019-10-20 06:45] LABS: BASOPHILS % (AUTO) 0.7 % (0.0-2.0); EOSINOPHILS % (AUTO) 3.7 % (0.0-3.0); HEMATOCRIT 26.6 % (37.0-47.0); HEMOGLOBIN 8.3 G/DL (12.0-16.0); LYMPHOCYTES % (AUTO) 23.9 % (20.0-45.0); MEAN CORPUSCULAR VOLUME 79 FL (80-99); MONOCYTES % (AUTO) 14.6 % (1.0-10.0); NEUTROPHILS % (AUTO) 57.2 % (45.0-75.0); PLATELET COUNT 104 K/UL (150-450); RED BLOOD COUNT 3.38 M/UL (4.20-5.40); RED CELL DISTRIBUTION WIDTH 17.6 % (11.6-14.8); WHITE BLOOD COUNT 5.6 K/UL (4.8-10.8)
[2019-10-20 07:08] LABS: CALCIUM 8.1 MG/DL (8.5-10.1); CARBON DIOXIDE 32 MMOL/L (21-32); CREATININE 8.2 MG/DL (0.55-1.30)
--- NOTE | 2019-10-20 07:21 | General Progress Note ---
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 ICD Codes: E11.49 - Type 2 diabetes mellitus with other diabetic neurological complication SNOMED: 33651414, 940919192 (2) ESRD (end stage renal disease) on dialysis ICD Codes: N18.6 - End stage renal disease; Z99.2 - Dependence on renal dialysis SNOMED: 534584907 (3) Congestive heart failure (CHF) ICD Codes: I50.9 - Heart failure, unspecified SNOMED: 43325864 Status: unchanged Assessment/Plan: no need for basal insulin continue Januvia 25 mg daily continue NISS ac / hs hypoglycemia protocol in order Subjective ROS Limited/Unobtainable: Yes Allergies: Coded Allergies: NO KNOWN ALLERGIES (Unverified Allergy, Unknown, 10/15/15) Subjective events noted glucose values are stable w/o hypoglycemia Item Value Date Time Bedside Blood Glucose 80 mg/dl 10/20/19 0623 Bedside Blood Glucose 134 mg/dl H 10/19/19 2100 Bedside Blood Glucose 110 mg/dl 10/19/19 1604 Bedside Blood Glucose 127 mg/dl H 10/19/19 1211 Bedside Blood Glucose 107 mg/dl 10/19/19 0540 Objective Last 24 Hour Vital Signs Date Time Temp Pulse Resp B/P (MAP) Pulse Ox O2 Delivery O2 Flow Rate FiO2 10/20/19 04:00 97.0 61 19 146/80 (102) 98 10/20/19 00:34 61 20 99 Room Air 21 10/20/19 00:24 60 20 97 Room Air 21 10/20/19 00:00 97.0 57 18 135/68 (90) 98 10/19/19 20:06 86 20 96 Room Air 21 10/19/19 20:02 Room Air 10/19/19 20:00 97.0 62 20 140/70 (93) 98 10/19/19 16:03 97.0 93 20 134/88 (103) 96 10/19/19 12:04 96.8 98 20 132/90 (104) 96 10/19/19 08:00 97.5 96 20 152/96 (114) 97 10/19/19 08:00 60 157/93 10/19/19 08:00 Room Air Intake and Output 10/19/19 10/20/19 19:00 07:00 Intake Total 855 ml 480 ml Balance 855 ml 480 ml Intake Oral 800 ml 480 ml IV Total 55 ml # Voids 1 # Bowel Movements 2 1 Laboratory Tests 10/20/19 06:05: White Blood Count 5.6, Red Blood Count 3.38L, Hemoglobin 8.3L, Hematocrit 26.6L , Mean Corpuscular Volume 79L, Mean Corpuscular Hemoglobin 24.6L, Mean Corpuscular Hemoglobin Concent 31.3L, Red Cell Distribution Width 17.6H, Platelet Count 104L, Mean Platelet Volume 6.4L, Neutrophils (%) (Auto) 57.2, Lymphocytes (%) (Auto) 23.9, Monocytes (%) (Auto) 14.6H, Eosinophils (%) (Auto) 3.7H, Basophils (%) (Auto) 0.7, Sodium Level [Pending], Potassium Level [Pending ], Chloride Level [Pending], Carbon Dioxide Level 32, Blood Urea Nitrogen [ Pending], Creatinine 8.2H, Estimat Glomerular Filtration Rate 6.1, Glucose Level 87, Calcium Level 8.1L Height (Feet): 5 Height (Inches): 5.00 Weight (Pounds): 278 General Appearance: no apparent distress EENT: other - blind Neck: normal alignment Cardiovascular: normal rate Respiratory/Chest: lungs clear, respiratory distress Pelvis: normal external exam Objective Current Medications Medications (Trade) Dose Ordered Sig/Josi Route PRN Reason Start Time Stop Time Status Last Admin Dose Admin Acetaminophen (Tylenol) 650 mg Q4H PRN ORAL Mild Pain/Temp > 100.5 10/15/19 08:15 11/14/19 08:14 Amlodipine Besylate (Norvasc) 10 mg DAILY ORAL 10/16/19 09:00 11/14/19 08:59 10/19/19 08:00 Atorvastatin Calcium (Lipitor) 10 mg BEDTIME ORAL 10/15/19 21:00 11/14/19 20:59 10/19/19 20:49 Chlorhexidine Gluconate (Jenny-Hex 2%) 1 applic DAILY@1999 TOPIC 10/16/19 20:00 11/15/19 19:59 10/18/19 20:16 Clonidine HCl (Catapres Tab) 0.1 mg Q4H PRN ORAL SBP>160mmHg 10/15/19 08:15 11/14/19 08:14 10/18/19 22:33 Dextrose (Dextrose 50%) 25 ml Q30M PRN IV Hypoglycemia 10/15/19 08:30 11/14/19 08:23 Dextrose (Dextrose 50%) 50 ml Q30M PRN IV hypoglycemia 10/15/19 08:30 11/14/19 08:29 10/18/19 04:45 Diphenhydramine HCl (Benadryl) 50 mg Q6H PRN ORAL Itching 10/15/19 08:15 11/14/19 08:14 10/19/19 23:29 Docusate Sodium (Colace) 100 mg TID ORAL 10/15/19 13:00 11/14/19 08:59 10/19/19 17:36 Epoetin Jose De Jesus (Epoetin Jose De Jesus(ESRD on dialysis)) 10,000 unit SUN-SUN-SUN SUBQ 10/15/19 21:00 11/14/19 20:59 10/17/19 21:03 Ertapenem 0.5 gm/ Sodium Chloride 55 ml @ 110 mls/hr Q24H IVPB 10/19/19 16:00 10/24/19 15:59 10/19/19 15:27 Gabapentin (Neurontin) 300 mg DAILY ORAL 10/15/19 09:00 11/14/19 08:59 10/19/19 08:00 Heparin Sodium (Porcine) (Heparin 5000 units/ml) 5,000 units EVERY 12 HOURS SUBQ 10/16/19 09:00 11/15/19 08:59 10/16/19 09:19 Hydromorphone HCl (Dilaudid) 0.5 mg Q6H PRN IVP SEVERE BREAKTHROUGH PAIN 10/15/19 08:30 10/22/19 08:14 Insulin Aspart (NovoLOG) BEFORE MEALS AND HS SUBQ 10/15/19 11:30 11/14/19 11:29 10/19/19 20:18 Ipratropium [place] (Atrovent) 500 mcg Q4H PRN HHN Shortness of Breath 10/15/19 08:15 10/20/19 08:14 10/20/19 00:25 Iron Sucrose 100 mg/Sodium Chloride 60 ml @ 240 mls/hr BEDTIME IV 10/16/19 21:00 10/20/19 21:14 10/19/19 20:48 Lactulose (Cephulac) 10 gm THREE TIMES A DAY ORAL 10/19/19 13:00 11/18/19 12:59 10/19/19 12:59 Lorazepam (Ativan) 1 mg Q6H PRN ORAL For Anxiety 10/15/19 08:15 10/22/19 08:14 Morphine Sulfate (Morphine Sulfate) 2 mg Q4H PRN IV Severe Pain (Pain Scale 7-10) 10/17/19 12:05 10/23/19 20:04 10/19/19 23:29 Ondansetron HCl (Zofran) 4 mg Q6H PRN IVP Nausea & Vomiting 10/18/19 06:45 11/17/19 06:44 Pantoprazole (Protonix) 40 mg DAILY ORAL 10/17/19 09:00 11/14/19 08:59 10/19/19 08:03 Polyethylene Glycol (Miralax) 17 gm BEDTIME ORAL 10/15/19 21:00 11/14/19 20:59 10/18/19 20:20 Polyethylene Glycol (Miralax) 17 gm DAILYPRN PRN ORAL Constipation 10/15/19 08:15 11/14/19 08:14 Pyridoxine HCl (Vitamin B6) 50 mg DAILY ORAL 10/15/19 10:00 11/14/19 09:59 10/19/19 08:00 Sevelamer Carbonate (Renvela) 1,600 mg THREE TIMES A DAY ORAL 10/19/19 18:00 11/18/19 17:59 10/19/19 17:36 Sitagliptin Phosphate (Januvia) 25 mg DAILY ORAL 10/15/19 10:00 11/14/19 09:59 10/19/19 08:00 Thiamine HCl (Vitamin B1) 100 mg DAILY ORAL 10/15/19 09:00 11/14/19 08:59 10/19/19 08:00 Zolpidem Tartrate (Ambien) 5 mg HSPRN PRN ORAL Insomnia 10/15/19 21:00 10/22/19 20:59 10/18/19 20:19 Franko Rogel MD Oct 20, 2019 07:21
[2019-10-20 07:44] LABS: BLOOD UREA NITROGEN 71 mg/dL (7-18); CHLORIDE 92 MMOL/L (98-107); POTASSIUM 4.7 MMOL/L (3.5-5.1); SODIUM 136 MMOL/L (136-145)
[2019-10-20] MEDS: sitaGLIPtin 25mg tab ORAL SCH (08:29)
[2019-10-20] MEDS: Docusate 100mg cap ORAL SCH ×3 (08:29→18:36)
[2019-10-20] MEDS: Pyridoxine 50mg tab ORAL SCH (08:32)
[2019-10-20] MEDS: Thiamine 100mg tab ORAL SCH (08:32)
[2019-10-20] MEDS: Lactulose 20gm/30ml UDC ORAL SCH ×3 (08:49→18:00)
[2019-10-20] MEDS: Heparin 5000 units/ml inj SUBQ SCH ×2 (08:53→21:00)
--- NOTE | 2019-10-20 09:45 | General Progress Note ---
Assessment/Plan Problem List: (1) Abdominal pain ICD Codes: R10.9 - Unspecified abdominal pain SNOMED: 46468347 (2) Congestive heart failure (CHF) ICD Codes: I50.9 - Heart failure, unspecified SNOMED: 58863123 (3) Back pain ICD Codes: M54.9 - Dorsalgia, unspecified SNOMED: 530458393 (4) General weakness ICD Codes: R53.1 - Weakness SNOMED: 35322191 (5) ESRD (end stage renal disease) on dialysis ICD Codes: N18.6 - End stage renal disease; Z99.2 - Dependence on renal dialysis SNOMED: 835441016 (6) Diabetes mellitus type 2 with neurological manifestations ICD Codes: E11.49 - Type 2 diabetes mellitus with other diabetic neurological complication SNOMED: 27457845, 706851951 (7) UTI (urinary tract infection) ICD Codes: N39.0 - Urinary tract infection, site not specified SNOMED: 35116022 (8) Anemia ICD Codes: D64.9 - Anemia, unspecified SNOMED: 937187337 Status: stable, progressing Assessment/Plan: pt diet abx pain control dialysis cbc bmp am dc home w hh Subjective Constitutional: Reports: weakness Allergies: Coded Allergies: NO KNOWN ALLERGIES (Unverified Allergy, Unknown, 10/15/15) All Systems: reviewed and negative except above Subjective sleepy calm Objective Last 24 Hour Vital Signs Date Time Temp Pulse Resp B/P (MAP) Pulse Ox O2 Delivery O2 Flow Rate FiO2 10/20/19 08:00 97.5 66 20 140/86 (104) 99 10/20/19 04:00 97.0 61 19 146/80 (102) 98 10/20/19 00:34 61 20 99 Room Air 21 10/20/19 00:24 60 20 97 Room Air 21 10/20/19 00:00 97.0 57 18 135/68 (90) 98 10/19/19 20:06 86 20 96 Room Air 21 10/19/19 20:02 Room Air 10/19/19 20:00 97.0 62 20 140/70 (93) 98 10/19/19 16:03 97.0 93 20 134/88 (103) 96 10/19/19 12:04 96.8 98 20 132/90 (104) 96 Intake and Output 10/19/19 10/20/19 18:59 06:59 Intake Total 855 ml 480 ml Balance 855 ml 480 ml Intake Oral 800 ml 480 ml IV Total 55 ml # Voids 1 # Bowel Movements 2 1 Laboratory Tests 10/20/19 06:05: White Blood Count 5.6, Red Blood Count 3.38L, Hemoglobin 8.3L, Hematocrit 26.6L , Mean Corpuscular Volume 79L, Mean Corpuscular Hemoglobin 24.6L, Mean Corpuscular Hemoglobin Concent 31.3L, Red Cell Distribution Width 17.6H, Platelet Count 104L, Mean Platelet Volume 6.4L, Neutrophils (%) (Auto) 57.2, Lymphocytes (%) (Auto) 23.9, Monocytes (%) (Auto) 14.6H, Eosinophils (%) (Auto) 3.7H, Basophils (%) (Auto) 0.7, Sodium Level 136, Potassium Level 4.7, Chloride Level 92L, Carbon Dioxide Level 32, Anion Gap , Blood Urea Nitrogen 71H, Creatinine 8.2H, Estimat Glomerular Filtration Rate 6.1, Glucose Level 87, Calcium Level 8.1L Height (Feet): 5 Height (Inches): 5.00 Weight (Pounds): 278 General Appearance: lethargic EENT: normal ENT inspection Neck: normal alignment Cardiovascular: normal peripheral pulses, normal rate, regular rhythm Respiratory/Chest: chest wall non-tender, lungs clear, normal breath sounds Abdomen: normal bowel sounds, non tender, soft Extremities: normal inspection Edema: no edema noted Arm (L), no edema noted Arm (R), no edema noted Leg (L), no edema noted Leg (R), no edema noted Pedal (L), no edema noted Pedal (R), no edema noted Generalized Neurologic: motor weakness Skin: normal pigmentation, warm/dry Roderick Henning DO Oct 20, 2019 09:45
[2019-10-20] MEDS: Morphine Sulfate 2mg/ml Inj(IV/IM USE ONLY) IV PRN ×2 (10:49→18:43)
--- NOTE | 2019-10-20 12:03 | Infectious Diseases Prog Note ---
Assessment/Plan Assessment/Plan 64yo woman with PMH below presents with few days of dysuria, frequency, suprapubic pain. Pt states that she gets UTIs often and she knows she has a UTI. Reports bilateral flank pain. Denies fever, chills, nausea, vomiting, cough , sore throat, chest pain, diarrhea. Reports orthopnea. Pt states that [facility] [place] was giving her PO antibiotics twice a day but her symptoms did not improve. Spoke to Tequila at [facility] [place] and no record of recent antibiotics. Afebrile Nontachycardic RA No leukocytosis UTI UA with WBC TNTC UCx: >100K Proteus, likely ESBL r/o bacteremia BCx: ngtd ESRD on HD DM2 b/l eye blindness CHF bradycardia 2ry hyperparathyroidism CAD s/p stent AOCD s/p AVG w recent rupture HTN morbid obesity h/o R foot cellulitis h/o pancreatitis Plan: Ertapenem #2/5 10/19 DC Ceftriaxone #5 f/u bcx f/u ucx aspiration precaution, elevate HOB, skin care Agree with CT Abd/pelvis per GI if pain does not improve Thank you for this consult. [facility] will continue to follow the patient with you. Subjective Allergies: Coded Allergies: NO KNOWN ALLERGIES (Unverified Allergy, Unknown, 10/15/15) Subjective afebrile no leukocytosis Objective Vital Signs Last 24 Hour Vital Signs Date Time Temp Pulse Resp B/P (MAP) Pulse Ox O2 Delivery O2 Flow Rate FiO2 10/20/19 09:57 60 20 98 Room Air 21 10/20/19 09:00 Room Air 10/20/19 08:00 97.5 66 20 140/86 (104) 99 10/20/19 04:00 97.0 61 19 146/80 (102) 98 10/20/19 00:34 61 20 99 Room Air 21 10/20/19 00:24 60 20 97 Room Air 21 10/20/19 00:00 97.0 57 18 135/68 (90) 98 10/19/19 20:06 86 20 96 Room Air 21 10/19/19 20:02 Room Air 10/19/19 20:00 97.0 62 20 140/70 (93) 98 10/19/19 16:03 97.0 93 20 134/88 (103) 96 10/19/19 12:04 96.8 98 20 132/90 (104) 96 Height (Feet): 5 Height (Inches): 5.00 Weight (Pounds): 278 Objective Gen: NAD. hard of hearing. HEENT: Anicteric sclera. No oral thrush CV: RRR. no murmurs or rubs. Resp: CTAB. RRR. no wheezes or crackles. Abd: normoactive BS+. Soft. suprapubic tenderness. Back: bilateral flank pain Neuro: alert. interactive Skin: warm. dry. Laboratory Tests Test 10/20/19 06:05 White Blood Count 5.6 K/UL (4.8-10.8) Red Blood Count 3.38 M/UL (4.20-5.40) L Hemoglobin 8.3 G/DL (12.0-16.0) L Hematocrit 26.6 % (37.0-47.0) L Mean Corpuscular Volume 79 FL (80-99) L Mean Corpuscular Hemoglobin 24.6 PG (27.0-31.0) L Mean Corpuscular Hemoglobin Concent 31.3 G/DL (32.0-36.0) L Red Cell Distribution Width 17.6 % (11.6-14.8) H Platelet Count 104 K/UL (150-450) L Mean Platelet Volume 6.4 FL (6.5-10.1) L Neutrophils (%) (Auto) 57.2 % (45.0-75.0) Lymphocytes (%) (Auto) 23.9 % (20.0-45.0) Monocytes (%) (Auto) 14.6 % (1.0-10.0) H Eosinophils (%) (Auto) 3.7 % (0.0-3.0) H Basophils (%) (Auto) 0.7 % (0.0-2.0) Sodium Level 136 MMOL/L (136-145) Potassium Level 4.7 MMOL/L (3.5-5.1) Chloride Level 92 MMOL/L (98-107) L Carbon Dioxide Level 32 MMOL/L (21-32) Anion Gap mmol/L (5-15) Blood Urea Nitrogen 71 mg/dL (7-18) H Creatinine 8.2 MG/DL (0.55-1.30) H Estimat Glomerular Filtration Rate 6.1 mL/min (>60) Glucose Level 87 MG/DL (74-106) Calcium Level 8.1 MG/DL (8.5-10.1) L Current Medications Medications (Trade) Dose Ordered Sig/Josi Route PRN Reason Start Time Stop Time Status Last Admin Dose Admin Acetaminophen (Tylenol) 650 mg Q4H PRN ORAL Mild Pain/Temp > 100.5 10/15/19 08:15 11/14/19 08:14 Amlodipine Besylate (Norvasc) 10 mg DAILY ORAL 10/16/19 09:00 11/14/19 08:59 10/19/19 08:00 Atorvastatin Calcium (Lipitor) 10 mg BEDTIME ORAL 10/15/19 21:00 11/14/19 20:59 10/19/19 20:49 Chlorhexidine Gluconate (Jenny-Hex 2%) 1 applic DAILY@2000 TOPIC 10/16/19 20:00 11/15/19 19:59 10/18/19 20:16 Clonidine HCl (Catapres Tab) 0.1 mg Q4H PRN ORAL SBP>160mmHg 10/15/19 08:15 11/14/19 08:14 10/18/19 22:33 Dextrose (Dextrose 50%) 25 ml Q30M PRN IV Hypoglycemia 10/15/19 08:30 11/14/19 08:23 Dextrose (Dextrose 50%) 50 ml Q30M PRN IV hypoglycemia 10/15/19 08:30 11/14/19 08:29 10/18/19 04:45 Diphenhydramine HCl (Benadryl) 50 mg Q6H PRN ORAL Itching 10/15/19 08:15 11/14/19 08:14 10/19/19 23:29 Docusate Sodium (Colace) 100 mg TID ORAL 10/15/19 13:00 11/14/19 08:59 10/20/19 08:29 Epoetin Jose De Jesus (Epoetin Jose De Jesus(ESRD on dialysis)) 10,000 unit SUN-SUN-SUN SUBQ 10/15/19 21:00 11/14/19 20:59 10/17/19 21:03 Ertapenem 0.5 gm/ Sodium Chloride 55 ml @ 110 mls/hr Q24H IVPB 10/19/19 16:00 10/24/19 15:59 10/19/19 15:27 Gabapentin (Neurontin) 300 mg DAILY ORAL 10/15/19 09:00 11/14/19 08:59 10/20/19 08:30 Heparin Sodium (Porcine) (Heparin 5000 units/ml) 5,000 units EVERY 12 HOURS SUBQ 10/16/19 09:00 11/15/19 08:59 10/16/19 09:19 Hydromorphone HCl (Dilaudid) 0.5 mg Q6H PRN IVP SEVERE BREAKTHROUGH PAIN 10/15/19 08:30 10/22/19 08:14 Insulin Aspart (NovoLOG) BEFORE MEALS AND HS SUBQ 10/15/19 11:30 11/14/19 11:29 10/19/19 20:18 Iron Sucrose 100 mg/Sodium Chloride 60 ml @ 240 mls/hr BEDTIME IV 10/16/19 21:00 10/20/19 21:14 10/19/19 20:48 Lactulose (Cephulac) 10 gm THREE TIMES A DAY ORAL 10/19/19 13:00 11/18/19 12:59 10/19/19 12:59 Lorazepam (Ativan) 1 mg Q6H PRN ORAL For Anxiety 10/15/19 08:15 10/22/19 08:14 Morphine Sulfate (Morphine Sulfate) 2 mg Q4H PRN IV Severe Pain (Pain Scale 7-10) 10/17/19 12:05 10/23/19 20:04 10/20/19 10:49 Ondansetron HCl (Zofran) 4 mg Q6H PRN IVP Nausea & Vomiting 10/18/19 06:45 11/17/19 06:44 Pantoprazole (Protonix) 40 mg DAILY ORAL 10/17/19 09:00 11/14/19 08:59 10/20/19 08:30 Polyethylene Glycol (Miralax) 17 gm BEDTIME ORAL 10/15/19 21:00 11/14/19 20:59 10/18/19 20:20 Polyethylene Glycol (Miralax) 17 gm DAILYPRN PRN ORAL Constipation 10/15/19 08:15 11/14/19 08:14 Pyridoxine HCl (Vitamin B6) 50 mg DAILY ORAL 10/15/19 10:00 11/14/19 09:59 10/20/19 08:32 Sevelamer Carbonate (Renvela) 1,600 mg THREE TIMES A DAY ORAL 10/19/19 18:00 11/18/19 17:59 10/20/19 08:31 Sitagliptin Phosphate (Januvia) 25 mg DAILY ORAL 10/15/19 10:00 11/14/19 09:59 10/20/19 08:29 Thiamine HCl (Vitamin B1) 100 mg DAILY ORAL 10/15/19 09:00 11/14/19 08:59 10/20/19 08:32 Zolpidem Tartrate (Ambien) 5 mg HSPRN PRN ORAL Insomnia 10/15/19 21:00 10/22/19 20:59 10/18/19 20:19 Susi Vanegas M.D. Oct 20, 2019 12:03
--- NOTE | 2019-10-20 13:20 | GI Progress Note ---
Assessment/Plan Problems: (1) Blindness of both eyes ICD Codes: H54.0 - Blindness SNOMED: 257344886 (2) Morbid obesity ICD Codes: E66.01 - Morbid (severe) obesity due to excess calories SNOMED: 204622072, [id number] (3) Uncontrolled diabetes mellitus ICD Codes: E11.9 - Type 2 diabetes mellitus without complications SNOMED: 817079008 (4) Anemia ICD Codes: D64.9 - Anemia, unspecified SNOMED: 120981554 (5) Abdominal pain ICD Codes: R10.9 - Unspecified abdominal pain SNOMED: 71026847 Status: stable Status Narrative Discussed with Dr. Garcia. Assessment/Plan Lipase within normal limits History of endoscopy September 2018, noted with mild chronic gastritis Will consider abdominal pelvic CT patient has persistent abdominal pain No plans for any GI procedures at this time iv iron bowel regimen Pain management Bowel regimen of Colace plus MiraLAX Zofran as needed PPI IV and p.o. hydration We will follow along on a daily basis with additional recommendations fu stool ob, positive but stable H&H Subjective Gastrointestinal/Abdominal: Reports: no symptoms Objective Last 24 Hour Vital Signs Date Time Temp Pulse Resp B/P (MAP) Pulse Ox O2 Delivery O2 Flow Rate FiO2 10/20/19 12:00 98.1 62 18 152/71 (98) 99 10/20/19 09:57 60 20 98 Room Air 21 10/20/19 09:00 Room Air 10/20/19 08:00 97.5 66 20 140/86 (104) 99 10/20/19 04:00 97.0 61 19 146/80 (102) 98 10/20/19 00:34 61 20 99 Room Air 21 10/20/19 00:24 60 20 97 Room Air 21 10/20/19 00:00 97.0 57 18 135/68 (90) 98 10/19/19 20:06 86 20 96 Room Air 21 10/19/19 20:02 Room Air 10/19/19 20:00 97.0 62 20 140/70 (93) 98 10/19/19 16:03 97.0 93 20 134/88 (103) 96 Intake and Output 10/19/19 10/20/19 18:59 06:59 Intake Total 855 ml 480 ml Balance 855 ml 480 ml Intake Oral 800 ml 480 ml IV Total 55 ml # Voids 1 # Bowel Movements 2 1 Laboratory Tests Test 10/20/19 06:05 White Blood Count 5.6 K/UL (4.8-10.8) Red Blood Count 3.38 M/UL (4.20-5.40) L Hemoglobin 8.3 G/DL (12.0-16.0) L Hematocrit 26.6 % (37.0-47.0) L Mean Corpuscular Volume 79 FL (80-99) L Mean Corpuscular Hemoglobin 24.6 PG (27.0-31.0) L Mean Corpuscular Hemoglobin Concent 31.3 G/DL (32.0-36.0) L Red Cell Distribution Width 17.6 % (11.6-14.8) H Platelet Count 104 K/UL (150-450) L Mean Platelet Volume 6.4 FL (6.5-10.1) L Neutrophils (%) (Auto) 57.2 % (45.0-75.0) Lymphocytes (%) (Auto) 23.9 % (20.0-45.0) Monocytes (%) (Auto) 14.6 % (1.0-10.0) H Eosinophils (%) (Auto) 3.7 % (0.0-3.0) H Basophils (%) (Auto) 0.7 % (0.0-2.0) Sodium Level 136 MMOL/L (136-145) Potassium Level 4.7 MMOL/L (3.5-5.1) Chloride Level 92 MMOL/L (98-107) L Carbon Dioxide Level 32 MMOL/L (21-32) Anion Gap mmol/L (5-15) Blood Urea Nitrogen 71 mg/dL (7-18) H Creatinine 8.2 MG/DL (0.55-1.30) H Estimat Glomerular Filtration Rate 6.1 mL/min (>60) Glucose Level 87 MG/DL (74-106) Calcium Level 8.1 MG/DL (8.5-10.1) L Height (Feet): 5 Height (Inches): 5.00 Weight (Pounds): 278 General Appearance: WD/WN, no apparent distress, alert Cardiovascular: normal rate Respiratory/Chest: normal breath sounds, no respiratory distress Abdominal Exam: normal bowel sounds, non tender, soft Extremities: normal range of motion, non-tender Jaime Martin NP Oct 20, 2019 13:20
--- NOTE | 2019-10-20 13:42 | Nephrology Progress Note ---
Assessment/Plan Problem List: (1) End stage renal disease on dialysis (2) UTI (urinary tract infection) (3) Morbid obesity (4) Coronary artery disease (5) Hypertension (6) Anemia (7) Patient is Rastafari Assessment End stage renal disease on dialysis UTI (urinary tract infection) Pyelonephritis Hyperkalemia morbid obesity Anemia / Jehova's witness CAD previous stent HTN s/p AVG DM 2 bilateral eye blindness h/o CHF Plan Phos binders Dialysis next 10/20 Kayexelate for high K Venofer and EPO, thiamin and b6 diet to renal , medium CHO per consultants Subjective ROS Limited/Unobtainable: No Constitutional: Reports: malaise Objective Objective Last 24 Hour Vital Signs Date Time Temp Pulse Resp B/P (MAP) Pulse Ox O2 Delivery O2 Flow Rate FiO2 10/20/19 12:00 98.1 62 18 152/71 (98) 99 10/20/19 09:57 60 20 98 Room Air 21 10/20/19 09:00 Room Air 10/20/19 08:00 97.5 66 20 140/86 (104) 99 10/20/19 04:00 97.0 61 19 146/80 (102) 98 10/20/19 00:34 61 20 99 Room Air 21 10/20/19 00:24 60 20 97 Room Air 21 10/20/19 00:00 97.0 57 18 135/68 (90) 98 10/19/19 20:06 86 20 96 Room Air 21 10/19/19 20:02 Room Air 10/19/19 20:00 97.0 62 20 140/70 (93) 98 10/19/19 16:03 97.0 93 20 134/88 (103) 96 Intake and Output 10/19/19 10/20/19 18:59 06:59 Intake Total 855 ml 480 ml Balance 855 ml 480 ml Intake Oral 800 ml 480 ml IV Total 55 ml # Voids 1 # Bowel Movements 2 1 Laboratory Tests 10/20/19 06:05: White Blood Count 5.6, Red Blood Count 3.38L, Hemoglobin 8.3L, Hematocrit 26.6L , Mean Corpuscular Volume 79L, Mean Corpuscular Hemoglobin 24.6L, Mean Corpuscular Hemoglobin Concent 31.3L, Red Cell Distribution Width 17.6H, Platelet Count 104L, Mean Platelet Volume 6.4L, Neutrophils (%) (Auto) 57.2, Lymphocytes (%) (Auto) 23.9, Monocytes (%) (Auto) 14.6H, Eosinophils (%) (Auto) 3.7H, Basophils (%) (Auto) 0.7, Sodium Level 136, Potassium Level 4.7, Chloride Level 92L, Carbon Dioxide Level 32, Anion Gap , Blood Urea Nitrogen 71H, Creatinine 8.2H, Estimat Glomerular Filtration Rate 6.1, Glucose Level 87, Calcium Level 8.1L Height (Feet): 5 Height (Inches): 5.00 Weight (Pounds): 278 General Appearance: no apparent distress Objective no change Bryan Hunter MD Oct 20, 2019 13:42
[2019-10-20] MEDS: Ertapenem 0.5 GM in NS 55 ML IVPB SCH ×2 (16:00→18:37)
[2019-10-20] MEDS: Dyna-Hex 2% Top Sol 2oz TOPIC SCH (20:19)
[2019-10-20] MEDS: Miralax 17gm pkt ORAL SCH (20:19)
[2019-10-20] MEDS: Iron Sucrose 100 MG in NS 55 ML IV SCH (21:08)
[2019-10-20] MEDS: Epoetin Alfa-EPBX(ESRD on dialysis)10,000 unit/ml vial SUBQ SCH (21:08)
--- NOTE | 2019-10-20 22:54 | Cardiology Progress Note ---
Assessment/Plan Assessment/Plan I was consulted by Dr. Gaming to see this patient in cardiology consultation. Assessment/Plan: 1. Chest pain, nuclear stress test at [facility] on 10/25/2018 with no evidence of ischemia. 2. Hypertension. On Norvasc 10 mg daily and HD 3. Nonsustained ventricular tachycardia. No Syncope or sustained VT 4. Hyperlipidemia. 5. Diabetes Mellitus. 6. Congestive heart failure with diastolic dysfunction with an ejection fraction 55%. Objective Last 24 Hour Vital Signs Date Time Temp Pulse Resp B/P (MAP) Pulse Ox O2 Delivery O2 Flow Rate FiO2 10/20/19 22:24 185/78 10/20/19 19:00 56 18 99 Room Air 10/20/19 16:00 98.6 61 18 161/86 (111) 98 10/20/19 12:00 98.1 62 18 152/71 (98) 99 10/20/19 09:57 60 20 98 Room Air 21 10/20/19 09:00 62 152/71 10/20/19 09:00 Room Air 10/20/19 08:00 97.5 66 20 140/86 (104) 99 10/20/19 04:00 97.0 61 19 146/80 (102) 98 10/20/19 00:34 61 20 99 Room Air 21 10/20/19 00:24 60 20 97 Room Air 21 10/20/19 00:00 97.0 57 18 135/68 (90) 98 Intake and Output 10/19/19 10/20/19 19:00 07:00 Intake Total 855 ml 480 ml Balance 855 ml 480 ml Intake Oral 800 ml 480 ml IV Total 55 ml # Voids 1 # Bowel Movements 2 1 Laboratory Tests Test 10/20/19 06:05 White Blood Count 5.6 K/UL (4.8-10.8) Red Blood Count 3.38 M/UL (4.20-5.40) L Hemoglobin 8.3 G/DL (12.0-16.0) L Hematocrit 26.6 % (37.0-47.0) L Mean Corpuscular Volume 79 FL (80-99) L Mean Corpuscular Hemoglobin 24.6 PG (27.0-31.0) L Mean Corpuscular Hemoglobin Concent 31.3 G/DL (32.0-36.0) L Red Cell Distribution Width 17.6 % (11.6-14.8) H Platelet Count 104 K/UL (150-450) L Mean Platelet Volume 6.4 FL (6.5-10.1) L Neutrophils (%) (Auto) 57.2 % (45.0-75.0) Lymphocytes (%) (Auto) 23.9 % (20.0-45.0) Monocytes (%) (Auto) 14.6 % (1.0-10.0) H Eosinophils (%) (Auto) 3.7 % (0.0-3.0) H Basophils (%) (Auto) 0.7 % (0.0-2.0) Sodium Level 136 MMOL/L (136-145) Potassium Level 4.7 MMOL/L (3.5-5.1) Chloride Level 92 MMOL/L (98-107) L Carbon Dioxide Level 32 MMOL/L (21-32) Anion Gap mmol/L (5-15) Blood Urea Nitrogen 71 mg/dL (7-18) H Creatinine 8.2 MG/DL (0.55-1.30) H Estimat Glomerular Filtration Rate 6.1 mL/min (>60) Glucose Level 87 MG/DL (74-106) Calcium Level 8.1 MG/DL (8.5-10.1) L Shalom Costa MD Oct 20, 2019 22:54
[2019-10-20] MEDS ORDERED: Doxazosin 4mg tab ORAL SCH (23:45)
[2019-10-21 04:00] VITALS: BP 139/82
--- NOTE | 2019-10-21 05:47 | Hematology/Onc Progress Note ---
Assessment/Plan Assessment/Plan Assessment/Plan # Anemia of chronic disease due to underlying chronic medical issues, multifactorial. 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 Hx of esrd on hd. --> Trend Hgb remains low at 8.9-->7.8 --> Prior anemia w/u has been reviewed. Ferritin >2000 --> No evidence of hemolysis is noted, peripheral smear has been reviewed. --> Hgb goal >7. Transfuse prn. --> EGD 10/24/18 completed, appreciate gir ecs --> off heparin sq at this time, is on scds --> bone marrow biopsy not needed given likely case ESRD --> EPOGEN since patient is a Muslim --> IRON IV since Muslim and no significant iron overload yet # Anemia of chronic kidney disease. --> Jehovah Witness and does not take any blood products --> on epogen, will continue --> b1, b12, folate as outpatient as well # End-stage renal disease on hemodialysis. Nephro is following, appreciate recs. --> The patient is on hemodialysis due to shortness of breath. --> has to have ferritin >500 especially since JW --> HD 3x a week # Hypertension. Cardiology is following, appreciate recs. --> stress test pending as per cards, most recent test was negative per Dr. Vinson in past --> Adjust medications as appropriate. # Diabetes mellitus per primary care physician. --> Cont on insulin --> Cont to monitor BS levels # back pain -- consider pain service eval as required --> opiates as needed, imaging to eval # Left distal tibial oblique fracture of the distal fibular diaphysis --> as per ortho recs # Dvt ppx wit heparin sq : Appreciate consult and dw RN and pcp Subjective HEENT: Denies: no symptoms, eye pain, blurred vision, tearing, double vision, ear pain, ear discharge, nose pain, nose congestion, throat pain, throat swelling, mouth pain, mouth swelling, other Cardiovascular: Denies: no symptoms, chest pain, edema, irregular heart rate, lightheadedness, palpitations, syncope, other Respiratory: Denies: no symptoms, cough, shortness of breath, SOB with excertion, SOB at rest, sputum, wheezing, other Gastrointestinal/Abdominal: Denies: no symptoms, abdomen distended, abdominal pain, black stools, tarry stools, blood in stool, constipated, diarrhea, difficulty swallowing, nausea, poor appetite, poor fluid intake, rectal bleeding , vomiting, other Endocrine: Denies: no symptoms, excessive sweating, flushing, intolerance to cold, intolerance to heat, increased hunger, increased thirst, increased urine, unexplained weight gain, unexplained weight loss, other Allergies: Coded Allergies: NO KNOWN ALLERGIES (Unverified Allergy, Unknown, 10/15/15) Subjective 10/19: hard of hearing, cannot see either, refusing prbc, on epo and iron, dw rn 10/20: no events, sleeping, will rn, no bleeding, no chills, hgb pending 10/21: no events, hd as needed, no bleeding noted, htn is better Objective Objective Current Medications Medications (Trade) Dose Ordered Sig/Josi Route PRN Reason Start Time Stop Time Status Last Admin Dose Admin Acetaminophen (Tylenol) 650 mg Q4H PRN ORAL Mild Pain/Temp > 100.5 10/15/19 08:15 11/14/19 08:14 Amlodipine Besylate (Norvasc) 10 mg DAILY ORAL 10/16/19 09:00 11/14/19 08:59 10/19/19 08:00 Atorvastatin Calcium (Lipitor) 10 mg BEDTIME ORAL 10/15/19 21:00 11/14/19 20:59 10/20/19 20:19 Chlorhexidine Gluconate (Jenny-Hex 2%) 1 applic DAILY@2000 TOPIC 10/16/19 20:00 11/15/19 19:59 10/20/19 20:19 Clonidine HCl (Catapres Tab) 0.1 mg Q4H PRN ORAL SBP>160mmHg 10/15/19 08:15 11/14/19 08:14 10/20/19 22:24 Dextrose (Dextrose 50%) 25 ml Q30M PRN IV Hypoglycemia 10/15/19 08:30 11/14/19 08:23 Dextrose (Dextrose 50%) 50 ml Q30M PRN IV hypoglycemia 10/15/19 08:30 11/14/19 08:29 10/18/19 04:45 Diphenhydramine HCl (Benadryl) 50 mg Q6H PRN ORAL Itching 10/15/19 08:15 11/14/19 08:14 10/20/19 22:24 Docusate Sodium (Colace) 100 mg TID ORAL 10/15/19 13:00 11/14/19 08:59 10/20/19 18:36 Doxazosin Mesylate (Cardura) 4 mg BEDTIME ORAL 10/20/19 23:45 11/19/19 23:44 10/20/19 23:45 Epoetin Jose De Jesus (Epoetin Jose De Jesus(ESRD on dialysis)) 10,000 unit SUN-SUN-SUN SUBQ 10/15/19 21:00 11/14/19 20:59 10/20/19 21:08 Ertapenem 0.5 gm/ Sodium Chloride 55 ml @ 110 mls/hr Q24H IVPB 10/19/19 16:00 10/24/19 15:59 10/20/19 18:37 Gabapentin (Neurontin) 300 mg DAILY ORAL 10/15/19 09:00 11/14/19 08:59 10/20/19 08:30 Heparin Sodium (Porcine) (Heparin 5000 units/ml) 5,000 units EVERY 12 HOURS SUBQ 10/16/19 09:00 11/15/19 08:59 10/16/19 09:19 Hydromorphone HCl (Dilaudid) 0.5 mg Q6H PRN IVP SEVERE BREAKTHROUGH PAIN 10/15/19 08:30 10/22/19 08:14 Insulin Aspart (NovoLOG) BEFORE MEALS AND HS SUBQ 10/15/19 11:30 11/14/19 11:29 10/19/19 20:18 Lactulose (Cephulac) 10 gm THREE TIMES A DAY ORAL 10/19/19 13:00 11/18/19 12:59 10/19/19 12:59 Lorazepam (Ativan) 1 mg Q6H PRN ORAL For Anxiety 10/15/19 08:15 10/22/19 08:14 Morphine Sulfate (Morphine Sulfate) 2 mg Q4H PRN IV Severe Pain (Pain Scale 7-10) 10/17/19 12:05 10/23/19 20:04 10/20/19 18:43 Ondansetron HCl (Zofran) 4 mg Q6H PRN IVP Nausea & Vomiting 10/18/19 06:45 11/17/19 06:44 Pantoprazole (Protonix) 40 mg DAILY ORAL 10/17/19 09:00 11/14/19 08:59 10/20/19 08:30 Polyethylene Glycol (Miralax) 17 gm BEDTIME ORAL 10/15/19 21:00 11/14/19 20:59 10/20/19 20:19 Polyethylene Glycol (Miralax) 17 gm DAILYPRN PRN ORAL Constipation 10/15/19 08:15 11/14/19 08:14 Pyridoxine HCl (Vitamin B6) 50 mg DAILY ORAL 10/15/19 10:00 11/14/19 09:59 10/20/19 08:32 Sevelamer Carbonate (Renvela) 1,600 mg THREE TIMES A DAY ORAL 10/19/19 18:00 11/18/19 17:59 10/20/19 18:36 Sitagliptin Phosphate (Januvia) 25 mg DAILY ORAL 10/15/19 10:00 11/14/19 09:59 10/20/19 08:29 Thiamine HCl (Vitamin B1) 100 mg DAILY ORAL 10/15/19 09:00 11/14/19 08:59 10/20/19 08:32 Zolpidem Tartrate (Ambien) 5 mg HSPRN PRN ORAL Insomnia 10/15/19 21:00 10/22/19 20:59 10/18/19 20:19 Last 24 Hour Vital Signs Date Time Temp Pulse Resp B/P (MAP) Pulse Ox O2 Delivery O2 Flow Rate FiO2 10/21/19 04:00 97.3 62 139/82 (101) 10/20/19 23:34 64 136/79 (98) 10/20/19 23:00 97.0 61 20 185/78 (113) 100 10/20/19 22:24 185/78 10/20/19 21:00 97.0 60 20 159/112 (128) 96 10/20/19 21:00 Room Air 10/20/19 19:00 56 18 99 Room Air 10/20/19 16:00 98.6 61 18 161/86 (111) 98 10/20/19 12:00 98.1 62 18 152/71 (98) 99 10/20/19 09:57 60 20 98 Room Air 21 10/20/19 09:00 62 152/71 10/20/19 09:00 Room Air 10/20/19 08:00 97.5 66 20 140/86 (104) 99 10/20/19 04:00 97.0 61 19 146/80 (102) 98 10/20/19 00:34 61 20 99 Room Air 21 10/20/19 00:24 60 20 97 Room Air 21 10/20/19 00:00 97.0 57 18 135/68 (90) 98 10/19/19 20:06 86 20 96 Room Air 21 10/19/19 20:02 Room Air 10/19/19 20:00 97.0 62 20 140/70 (93) 98 10/19/19 16:03 97.0 93 20 134/88 (103) 96 10/19/19 12:04 96.8 98 20 132/90 (104) 96 10/19/19 08:00 97.5 96 20 152/96 (114) 97 10/19/19 08:00 60 157/93 10/19/19 08:00 Room Air Intake and Output 10/20/19 10/21/19 19:00 07:00 Intake Total 115 ml Output Total 2000 ml Balance -2000 ml 115 ml IV Total 115 ml Output Hemodialysis UF 2000 ml Labs Test 10/19/19 05:35 10/20/19 06:05 10/20/19 22:45 White Blood Count 5.0 K/UL (4.8-10.8) 5.6 K/UL (4.8-10.8) Red Blood Count 3.16 M/UL (4.20-5.40) 3.38 M/UL (4.20-5.40) Hemoglobin 7.8 G/DL (12.0-16.0) 8.3 G/DL (12.0-16.0) Hematocrit 24.9 % (37.0-47.0) 26.6 % (37.0-47.0) Mean Corpuscular Volume 79 FL (80-99) 79 FL (80-99) Mean Corpuscular Hemoglobin 24.5 PG (27.0-31.0) 24.6 PG (27.0-31.0) Mean Corpuscular Hemoglobin Concent 31.1 G/DL (32.0-36.0) 31.3 G/DL (32.0-36.0) Red Cell Distribution Width 18.3 % (11.6-14.8) 17.6 % (11.6-14.8) Platelet Count 99 K/UL (150-450) 104 K/UL (150-450) Mean Platelet Volume 6.9 FL (6.5-10.1) 6.4 FL (6.5-10.1) Neutrophils (%) (Auto) % (45.0-75.0) 57.2 % (45.0-75.0) Lymphocytes (%) (Auto) % (20.0-45.0) 23.9 % (20.0-45.0) Monocytes (%) (Auto) % (1.0-10.0) 14.6 % (1.0-10.0) Eosinophils (%) (Auto) % (0.0-3.0) 3.7 % (0.0-3.0) Basophils (%) (Auto) % (0.0-2.0) 0.7 % (0.0-2.0) Differential Total Cells Counted 100 Neutrophils % (Manual) 64 % (45-75) Lymphocytes % (Manual) 24 % (20-45) Monocytes % (Manual) 9 % (1-10) Eosinophils % (Manual) 3 % (0-3) Basophils % (Manual) 0 % (0-2) Band Neutrophils 0 % (0-8) Platelet Estimate Decreased Platelet Morphology Normal Hypochromasia 1+ Anisocytosis 1+ Microcytosis 1+ Sodium Level 135 MMOL/L (136-145) 136 MMOL/L (136-145) Potassium Level 4.3 MMOL/L (3.5-5.1) 4.7 MMOL/L (3.5-5.1) Chloride Level 93 MMOL/L (98-107) 92 MMOL/L (98-107) Carbon Dioxide Level 32 MMOL/L (21-32) 32 MMOL/L (21-32) Anion Gap 10 mmol/L (5-15) mmol/L (5-15) Blood Urea Nitrogen 57 mg/dL (7-18) 71 mg/dL (7-18) Creatinine 6.5 MG/DL (0.55-1.30) 8.2 MG/DL (0.55-1.30) Estimat Glomerular Filtration Rate 7.9 mL/min (>60) 6.1 mL/min (>60) Glucose Level 119 MG/DL (74-106) 87 MG/DL (74-106) Calcium Level 8.2 MG/DL (8.5-10.1) 8.1 MG/DL (8.5-10.1) Phosphorus Level 6.9 MG/DL (2.5-4.9) Total Bilirubin 0.7 MG/DL (0.2-1.0) Aspartate Amino Transf (AST/SGOT) 24 U/L (15-37) Alanine Aminotransferase (ALT/SGPT) 35 U/L (12-78) Alkaline Phosphatase 359 U/L (46-116) Total Protein 8.0 G/DL (6.4-8.2) Albumin 3.7 G/DL (3.4-5.0) Globulin 4.3 g/dL Albumin/Globulin Ratio 0.9 (1.0-2.7) Troponin I 0.000 ng/mL (0.000-0.056) Height (Feet): 5 Height (Inches): 5.00 Weight (Pounds): 278 Objective Gen: hard of hearing, can't see, obese Pulm: decreased sounds b/l CV: rrr, no mgr Abd: soft, obese, nt Ext: 1+ edema Malick Lizama MD Oct 21, 2019 05:47
[2019-10-21] MEDS: Insulin NovoLOG Flexpen S/S (insulin sensitive) SUBQ SCH ×3 (05:58→17:09)
[2019-10-21 06:03] LABS: HEMATOCRIT 25.3 % (37.0-47.0); HEMOGLOBIN 7.9 G/DL (12.0-16.0); MEAN CORPUSCULAR VOLUME 80 FL (80-99); PLATELET COUNT 90 K/UL (150-450); RED BLOOD COUNT 3.18 M/UL (4.20-5.40); WHITE BLOOD COUNT 4.4 K/UL (4.8-10.8)
[2019-10-21 06:04] LABS: ANION GAP 14 mmol/L (5-15); BLOOD UREA NITROGEN 63 mg/dL (7-18); CALCIUM 8.8 MG/DL (8.5-10.1); CARBON DIOXIDE 29 MMOL/L (21-32); CHLORIDE 94 MMOL/L (98-107); SODIUM 137 MMOL/L (136-145)
--- NOTE | 2019-10-21 06:21 | General Progress Note ---
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 ICD Codes: E11.49 - Type 2 diabetes mellitus with other diabetic neurological complication SNOMED: 40833049, 971216955 (2) ESRD (end stage renal disease) on dialysis ICD Codes: N18.6 - End stage renal disease; Z99.2 - Dependence on renal dialysis SNOMED: 882901575 (3) Congestive heart failure (CHF) ICD Codes: I50.9 - Heart failure, unspecified SNOMED: 98290117 Status: stable Assessment/Plan: DC Januvia 25 mg daily continue glucose monitoring without insulin coverage hypoglycemia protocol in order Subjective ROS Limited/Unobtainable: Yes Allergies: Coded Allergies: NO KNOWN ALLERGIES (Unverified Allergy, Unknown, 10/15/15) Subjective events noted hypoglycemia this morning without insulin being given Item Value Date Time Bedside Blood Glucose 78 mg/dl 10/21/19 0558 Bedside Blood Glucose 89 mg/dl 10/20/19 2100 Bedside Blood Glucose 77 mg/dl 10/20/19 1650 Bedside Blood Glucose 71 mg/dl 10/20/19 1217 Bedside Blood Glucose 80 mg/dl 10/20/19 0623 Objective Last 24 Hour Vital Signs Date Time Temp Pulse Resp B/P (MAP) Pulse Ox O2 Delivery O2 Flow Rate FiO2 10/21/19 04:00 97.3 62 139/82 (101) 10/20/19 23:34 64 136/79 (98) 10/20/19 23:00 97.0 61 20 185/78 (113) 100 10/20/19 22:24 185/78 10/20/19 21:00 97.0 60 20 159/112 (128) 96 10/20/19 21:00 Room Air 10/20/19 19:00 56 18 99 Room Air 10/20/19 16:00 98.6 61 18 161/86 (111) 98 10/20/19 12:00 98.1 62 18 152/71 (98) 99 10/20/19 09:57 60 20 98 Room Air 21 10/20/19 09:00 62 152/71 10/20/19 09:00 Room Air 10/20/19 08:00 97.5 66 20 140/86 (104) 99 Intake and Output 10/20/19 10/21/19 19:00 07:00 Intake Total 115 ml Output Total 2000 ml Balance -2000 ml 115 ml IV Total 115 ml Output Hemodialysis UF 2000 ml # Voids 1 # Bowel Movements 1 Laboratory Tests 10/20/19 22:45: Troponin I 0.000 10/21/19 05:35: Troponin I 0.000, White Blood Count 4.4L, Red Blood Count 3.18L, Hemoglobin 7.9L , Hematocrit 25.3L, Mean Corpuscular Volume 80, Mean Corpuscular Hemoglobin 24.8L, Mean Corpuscular Hemoglobin Concent 31.1L, Red Cell Distribution Width 19.0H, Platelet Count 90L, Mean Platelet Volume 8.3, Neutrophils (%) (Auto) , Lymphocytes (%) (Auto) , Monocytes (%) (Auto) , Eosinophils (%) (Auto) , Basophils (%) (Auto) , Sodium Level 137, Potassium Level 4.0, Chloride Level 94L , Carbon Dioxide Level 29, Anion Gap 14, Blood Urea Nitrogen 63H, Creatinine 7.0H, Estimat Glomerular Filtration Rate 7.2, Glucose Level 44L, Calcium Level 8.8 Height (Feet): 5 Height (Inches): 5.00 Weight (Pounds): 278 General Appearance: no apparent distress Cardiovascular: normal rate Respiratory/Chest: decreased breath sounds Abdomen: normal bowel sounds Objective Current Medications Medications (Trade) Dose Ordered Sig/Josi Route PRN Reason Start Time Stop Time Status Last Admin Dose Admin Acetaminophen (Tylenol) 650 mg Q4H PRN ORAL Mild Pain/Temp > 100.5 10/15/19 08:15 11/14/19 08:14 Amlodipine Besylate (Norvasc) 10 mg DAILY ORAL 10/16/19 09:00 11/14/19 08:59 10/19/19 08:00 Atorvastatin Calcium (Lipitor) 10 mg BEDTIME ORAL 10/15/19 21:00 11/14/19 20:59 10/20/19 20:19 Chlorhexidine Gluconate (Jenny-Hex 2%) 1 applic DAILY@1999 TOPIC 10/16/19 20:00 11/15/19 19:59 10/20/19 20:19 Clonidine HCl (Catapres Tab) 0.1 mg Q4H PRN ORAL SBP>160mmHg 10/15/19 08:15 11/14/19 08:14 10/20/19 22:24 Dextrose (Dextrose 50%) 25 ml Q30M PRN IV Hypoglycemia 10/15/19 08:30 11/14/19 08:23 Dextrose (Dextrose 50%) 50 ml Q30M PRN IV hypoglycemia 10/15/19 08:30 11/14/19 08:29 10/18/19 04:45 Diphenhydramine HCl (Benadryl) 50 mg Q6H PRN ORAL Itching 10/15/19 08:15 11/14/19 08:14 10/20/19 22:24 Docusate Sodium (Colace) 100 mg TID ORAL 10/15/19 13:00 11/14/19 08:59 10/20/19 18:36 Doxazosin Mesylate (Cardura) 4 mg BEDTIME ORAL 10/20/19 23:45 11/19/19 23:44 10/20/19 23:45 Epoetin Jose De Jesus (Epoetin Jose De Jesus(ESRD on dialysis)) 10,000 unit SUN-SUN-SUN SUBQ 10/15/19 21:00 11/14/19 20:59 10/20/19 21:08 Ertapenem 0.5 gm/ Sodium Chloride 55 ml @ 110 mls/hr Q24H IVPB 10/19/19 16:00 10/24/19 15:59 10/20/19 18:37 Gabapentin (Neurontin) 300 mg DAILY ORAL 10/15/19 09:00 11/14/19 08:59 10/20/19 08:30 Heparin Sodium (Porcine) (Heparin 5000 units/ml) 5,000 units EVERY 12 HOURS SUBQ 10/16/19 09:00 11/15/19 08:59 10/16/19 09:19 Hydromorphone HCl (Dilaudid) 0.5 mg Q6H PRN IVP SEVERE BREAKTHROUGH PAIN 10/15/19 08:30 10/22/19 08:14 Insulin Aspart (NovoLOG) BEFORE MEALS AND HS SUBQ 10/15/19 11:30 11/14/19 11:29 10/19/19 20:18 Lactulose (Cephulac) 10 gm THREE TIMES A DAY ORAL 10/19/19 13:00 11/18/19 12:59 10/19/19 12:59 Lorazepam (Ativan) 1 mg Q6H PRN ORAL For Anxiety 10/15/19 08:15 10/22/19 08:14 Morphine Sulfate (Morphine Sulfate) 2 mg Q4H PRN IV Severe Pain (Pain Scale 7-10) 10/17/19 12:05 10/23/19 20:04 10/20/19 18:43 Ondansetron HCl (Zofran) 4 mg Q6H PRN IVP Nausea & Vomiting 10/18/19 06:45 11/17/19 06:44 Pantoprazole (Protonix) 40 mg DAILY ORAL 10/17/19 09:00 11/14/19 08:59 10/20/19 08:30 Polyethylene Glycol (Miralax) 17 gm BEDTIME ORAL 10/15/19 21:00 11/14/19 20:59 10/20/19 20:19 Polyethylene Glycol (Miralax) 17 gm DAILYPRN PRN ORAL Constipation 10/15/19 08:15 11/14/19 08:14 Pyridoxine HCl (Vitamin B6) 50 mg DAILY ORAL 10/15/19 10:00 11/14/19 09:59 10/20/19 08:32 Sevelamer Carbonate (Renvela) 1,600 mg THREE TIMES A DAY ORAL 10/19/19 18:00 11/18/19 17:59 10/20/19 18:36 Sitagliptin Phosphate (Januvia) 25 mg DAILY ORAL 10/15/19 10:00 11/14/19 09:59 10/20/19 08:29 Thiamine HCl (Vitamin B1) 100 mg DAILY ORAL 10/15/19 09:00 11/14/19 08:59 10/20/19 08:32 Zolpidem Tartrate (Ambien) 5 mg HSPRN PRN ORAL Insomnia 10/15/19 21:00 10/22/19 20:59 10/18/19 20:19 Franko Rogel MD Oct 21, 2019 06:21
[2019-10-21 08:21] VITALS: BP 155/67
[2019-10-21] MEDS: Lactulose 20gm/30ml UDC ORAL SCH ×3 (09:00→13:15)
[2019-10-21] MEDS: Heparin 5000 units/ml inj SUBQ SCH (09:00)
--- NOTE | 2019-10-21 09:00 | Consultation ---
DATE OF CONSULTATION: 10/16/2019 ENDOCRINOLOGY CONSULTATION CONSULTING PHYSICIAN: Franko Rogel M.D. REFERRING PHYSICIAN: Roderick Henning D.O. REASON FOR CONSULTATION: Hyperglycemia. HISTORY OF PRESENT ILLNESS: The patient is a 64-year-old female who has a history of end-stage renal disease, on hemodialysis, presented to the hospital with increased abdominal pain x2 days, urinary tract infection. The patient is on dialysis. Glucose was noted to be low. Endocrinology was consulted. The patient is blind. PAST MEDICAL HISTORY: 1. CHF. 2. End-stage renal disease. 3. Anemia. 4. Obesity. 5. Blindness. PAST SURGICAL HISTORY: She has a left upper extremity AV fistula. ALLERGIES TO MEDICATION: None. FAMILY HISTORY: Noncontributory. SOCIAL HISTORY: No smoking, alcohol, or drug use. REVIEW OF SYSTEMS: As per HPI. LABORATORY DATA: WBC 4.7, hemoglobin 8.6, hematocrit 28.5, platelet count 127. Sodium 136, potassium 5.6, chloride 92, bicarb 32, BUN 67, creatinine 6.7, glucose 131. TSH of 1.6. PHYSICAL EXAMINATION: VITAL SIGNS: Blood pressure is 139/67, pulse 65, temperature 97.8, respiratory rate 18. HEENT: Sclerae anicteric. NECK: No JVD. HEART: Regular. LUNGS: Clear. ABDOMEN: Positive bowel sounds. EXTREMITIES: AV fistula. DIAGNOSES: 1. End-stage renal disease. 2. hypoglycemia 3. Hyperglycemia. PLAN: low dose sliding scale, Januvia daily, hypoglycemia protocol Thank you, Dr. Henning, for the courtesy of this consultation. Franko Rogel M.D. DR: NATHALIA/JEN JOB#: [id number] CC: JEAN
[2019-10-21] MEDS: Pyridoxine 50mg tab ORAL SCH (09:11)
[2019-10-21] MEDS: Docusate 100mg cap ORAL SCH ×3 (09:13→18:30)
[2019-10-21] MEDS: Thiamine 100mg tab ORAL SCH (09:14)
[2019-10-21] MEDS: Morphine Sulfate 2mg/ml Inj(IV/IM USE ONLY) IV PRN (09:22)
--- NOTE | 2019-10-21 10:32 | GI Progress Note ---
Assessment/Plan Problems: (1) Blindness of both eyes ICD Codes: H54.0 - Blindness SNOMED: 853316119 (2) Morbid obesity ICD Codes: E66.01 - Morbid (severe) obesity due to excess calories SNOMED: 052133645, [id number] (3) Uncontrolled diabetes mellitus ICD Codes: E11.9 - Type 2 diabetes mellitus without complications SNOMED: 950585235 (4) Anemia ICD Codes: D64.9 - Anemia, unspecified SNOMED: 573741378 (5) Abdominal pain ICD Codes: R10.9 - Unspecified abdominal pain SNOMED: 47381287 Status: unchanged Status Narrative Discussed with Dr. Garcia. Assessment/Plan Lipase within normal limits History of endoscopy September 2018, noted with mild chronic gastritis Will consider abdominal pelvic CT patient has persistent abdominal pain No plans for any GI procedures at this time iv iron bowel regimen Pain management Bowel regimen of Colace plus MiraLAX Zofran as needed PPI IV and p.o. hydration We will follow along on a daily basis with additional recommendations fu stool ob, positive but stable H&H dc planning The patient was seen and examined at bedside and all new and available data was reviewed in the patients chart. I agree with the above findings, impression and plan. (Patient seen earlier today. Signature stamp does not reflect patient encounter time.). - Jamison Garcia MD Subjective Gastrointestinal/Abdominal: Reports: no symptoms Objective Last 24 Hour Vital Signs Date Time Temp Pulse Resp B/P (MAP) Pulse Ox O2 Delivery O2 Flow Rate FiO2 10/21/19 09:49 Room Air 10/21/19 09:11 62 164/80 10/21/19 08:21 96.1 60 12 155/67 (96) 96 10/21/19 08:07 61 20 100 Room Air 21 10/21/19 04:00 97.3 62 139/82 (101) 10/20/19 23:34 64 136/79 (98) 10/20/19 23:00 97.0 61 20 185/78 (113) 100 10/20/19 22:24 185/78 10/20/19 21:00 97.0 60 20 159/112 (128) 96 10/20/19 21:00 Room Air 10/20/19 19:00 56 18 99 Room Air 10/20/19 16:00 98.6 61 18 161/86 (111) 98 10/20/19 12:00 98.1 62 18 152/71 (98) 99 Intake and Output 10/20/19 10/21/19 19:00 07:00 Intake Total 115 ml Output Total 2000 ml Balance -2000 ml 115 ml IV Total 115 ml Output Hemodialysis UF 2000 ml # Voids 1 # Bowel Movements 1 Laboratory Tests Test 10/20/19 22:45 10/21/19 05:35 Troponin I 0.000 ng/mL (0.000-0.056) 0.000 ng/mL (0.000-0.056) White Blood Count 4.4 K/UL (4.8-10.8) L Red Blood Count 3.18 M/UL (4.20-5.40) L Hemoglobin 7.9 G/DL (12.0-16.0) L Hematocrit 25.3 % (37.0-47.0) L Mean Corpuscular Volume 80 FL (80-99) Mean Corpuscular Hemoglobin 24.8 PG (27.0-31.0) L Mean Corpuscular Hemoglobin Concent 31.1 G/DL (32.0-36.0) L Red Cell Distribution Width 19.0 % (11.6-14.8) H Platelet Count 90 K/UL (150-450) L Mean Platelet Volume 8.3 FL (6.5-10.1) Neutrophils (%) (Auto) % (45.0-75.0) Lymphocytes (%) (Auto) % (20.0-45.0) Monocytes (%) (Auto) % (1.0-10.0) Eosinophils (%) (Auto) % (0.0-3.0) Basophils (%) (Auto) % (0.0-2.0) Sodium Level 137 MMOL/L (136-145) Potassium Level 4.0 MMOL/L (3.5-5.1) Chloride Level 94 MMOL/L (98-107) L Carbon Dioxide Level 29 MMOL/L (21-32) Anion Gap 14 mmol/L (5-15) Blood Urea Nitrogen 63 mg/dL (7-18) H Creatinine 7.0 MG/DL (0.55-1.30) H Estimat Glomerular Filtration Rate 7.2 mL/min (>60) Glucose Level 44 MG/DL (74-106) L Calcium Level 8.8 MG/DL (8.5-10.1) Height (Feet): 5 Height (Inches): 5.00 Weight (Pounds): 278 General Appearance: no apparent distress Cardiovascular: normal rate Respiratory/Chest: normal breath sounds, no respiratory distress Abdominal Exam: soft Jaime Martin NP Oct 21, 2019 10:32
--- NOTE | 2019-10-21 11:22 | Infectious Diseases Prog Note ---
Assessment/Plan Assessment/Plan 64yo woman with PMH below presents with few days of dysuria, frequency, suprapubic pain. Pt states that she gets UTIs often and she knows she has a UTI. Reports bilateral flank pain. Denies fever, chills, nausea, vomiting, cough , sore throat, chest pain, diarrhea. Reports orthopnea. Pt states that [facility] was giving her PO antibiotics twice a day but her symptoms did not improve. Spoke to Tequila at [facility] and no record of recent antibiotics. Afebrile Nontachycardic RA No leukocytosis UTI UA with WBC TNTC UCx: >100K Proteus, likely ESBL BCx: neg ESRD on HD DM2 b/l eye blindness CHF bradycardia 2ry hyperparathyroidism CAD s/p stent AOCD s/p AVG w recent rupture HTN morbid obesity h/o R foot cellulitis h/o pancreatitis Plan: Ertapenem #3/5 10/19 SP Ceftriaxone #5 f/u bcx f/u ucx aspiration precaution, elevate HOB, skin care Agree with CT Abd/pelvis per GI if pain does not improve Thank you for this consult. [facility] will continue to follow the patient with you. Subjective Allergies: Coded Allergies: NO KNOWN ALLERGIES (Unverified Allergy, Unknown, 10/15/15) Subjective afebrile no leukocytosis Objective Vital Signs Last 24 Hour Vital Signs Date Time Temp Pulse Resp B/P (MAP) Pulse Ox O2 Delivery O2 Flow Rate FiO2 10/21/19 09:49 Room Air 10/21/19 09:11 62 164/80 10/21/19 08:21 96.1 60 12 155/67 (96) 96 10/21/19 08:07 61 20 100 Room Air 21 10/21/19 04:00 97.3 62 139/82 (101) 10/20/19 23:34 64 136/79 (98) 10/20/19 23:00 97.0 61 20 185/78 (113) 100 10/20/19 22:24 185/78 10/20/19 21:00 97.0 60 20 159/112 (128) 96 10/20/19 21:00 Room Air 10/20/19 19:00 56 18 99 Room Air 10/20/19 16:00 98.6 61 18 161/86 (111) 98 10/20/19 12:00 98.1 62 18 152/71 (98) 99 Height (Feet): 5 Height (Inches): 5.00 Weight (Pounds): 278 Objective Gen: NAD. hard of hearing. HEENT: Anicteric sclera. No oral thrush CV: RRR. no murmurs or rubs. Resp: CTAB. RRR. no wheezes or crackles. Abd: normoactive BS+. Soft. suprapubic tenderness. Back: bilateral flank pain Neuro: alert. interactive Skin: warm. dry. Laboratory Tests Test 10/20/19 22:45 10/21/19 05:35 Troponin I 0.000 ng/mL (0.000-0.056) 0.000 ng/mL (0.000-0.056) White Blood Count 4.4 K/UL (4.8-10.8) L Red Blood Count 3.18 M/UL (4.20-5.40) L Hemoglobin 7.9 G/DL (12.0-16.0) L Hematocrit 25.3 % (37.0-47.0) L Mean Corpuscular Volume 80 FL (80-99) Mean Corpuscular Hemoglobin 24.8 PG (27.0-31.0) L Mean Corpuscular Hemoglobin Concent 31.1 G/DL (32.0-36.0) L Red Cell Distribution Width 19.0 % (11.6-14.8) H Platelet Count 90 K/UL (150-450) L Mean Platelet Volume 8.3 FL (6.5-10.1) Neutrophils (%) (Auto) % (45.0-75.0) Lymphocytes (%) (Auto) % (20.0-45.0) Monocytes (%) (Auto) % (1.0-10.0) Eosinophils (%) (Auto) % (0.0-3.0) Basophils (%) (Auto) % (0.0-2.0) Sodium Level 137 MMOL/L (136-145) Potassium Level 4.0 MMOL/L (3.5-5.1) Chloride Level 94 MMOL/L (98-107) L Carbon Dioxide Level 29 MMOL/L (21-32) Anion Gap 14 mmol/L (5-15) Blood Urea Nitrogen 63 mg/dL (7-18) H Creatinine 7.0 MG/DL (0.55-1.30) H Estimat Glomerular Filtration Rate 7.2 mL/min (>60) Glucose Level 44 MG/DL (74-106) L Calcium Level 8.8 MG/DL (8.5-10.1) Current Medications Medications (Trade) Dose Ordered Sig/Josi Route PRN Reason Start Time Stop Time Status Last Admin Dose Admin Acetaminophen (Tylenol) 650 mg Q4H PRN ORAL Mild Pain/Temp > 100.5 10/15/19 08:15 11/14/19 08:14 Amlodipine Besylate (Norvasc) 10 mg DAILY ORAL 10/16/19 09:00 11/14/19 08:59 10/21/19 09:11 Atorvastatin Calcium (Lipitor) 10 mg BEDTIME ORAL 10/15/19 21:00 11/14/19 20:59 10/20/19 20:19 Chlorhexidine Gluconate (Jenny-Hex 2%) 1 applic DAILY@1999 TOPIC 10/16/19 20:00 11/15/19 19:59 10/20/19 20:19 Clonidine HCl (Catapres Tab) 0.1 mg Q4H PRN ORAL SBP>160mmHg 10/15/19 08:15 11/14/19 08:14 10/20/19 22:24 Dextrose (Dextrose 50%) 25 ml Q30M PRN IV Hypoglycemia 10/15/19 08:30 11/14/19 08:23 Dextrose (Dextrose 50%) 50 ml Q30M PRN IV hypoglycemia 10/15/19 08:30 11/14/19 08:29 10/18/19 04:45 Diphenhydramine HCl (Benadryl) 50 mg Q6H PRN ORAL Itching 10/15/19 08:15 11/14/19 08:14 10/20/19 22:24 Docusate Sodium (Colace) 100 mg TID ORAL 10/15/19 13:00 11/14/19 08:59 10/21/19 09:13 Doxazosin Mesylate (Cardura) 4 mg BEDTIME ORAL 10/20/19 23:45 11/19/19 23:44 10/20/19 23:45 Epoetin Jose De Jesus (Epoetin Jose De Jesus(ESRD on dialysis)) 10,000 unit SUBQ 10/15/19 21:00 11/14/19 20:59 10/20/19 21:08 Ertapenem 0.5 gm/ Sodium Chloride 55 ml @ 110 mls/hr Q24H IVPB 10/19/19 16:00 10/24/19 15:59 10/20/19 18:37 Gabapentin (Neurontin) 300 mg DAILY ORAL 10/15/19 09:00 11/14/19 08:59 10/21/19 09:09 Heparin Sodium (Porcine) (Heparin 5000 units/ml) 5,000 units EVERY 12 HOURS SUBQ 10/16/19 09:00 11/15/19 08:59 10/16/19 09:19 Hydromorphone HCl (Dilaudid) 0.5 mg Q6H PRN IVP SEVERE BREAKTHROUGH PAIN 10/15/19 08:30 10/22/19 08:14 Insulin Aspart (NovoLOG) BEFORE MEALS AND HS SUBQ 10/15/19 11:30 11/14/19 11:29 10/19/19 20:18 Lactulose (Cephulac) 10 gm THREE TIMES A DAY ORAL 10/19/19 13:00 11/18/19 12:59 10/19/19 12:59 Lorazepam (Ativan) 1 mg Q6H PRN ORAL For Anxiety 10/15/19 08:15 10/22/19 08:14 Morphine Sulfate (Morphine Sulfate) 2 mg Q4H PRN IV Severe Pain (Pain Scale 7-10) 10/17/19 12:05 10/23/19 20:04 10/21/19 09:22 Ondansetron HCl (Zofran) 4 mg Q6H PRN IVP Nausea & Vomiting 10/18/19 06:45 11/17/19 06:44 Pantoprazole (Protonix) 40 mg DAILY ORAL 10/17/19 09:00 11/14/19 08:59 10/21/19 09:12 Polyethylene Glycol (Miralax) 17 gm BEDTIME ORAL 10/15/19 21:00 11/14/19 20:59 10/20/19 20:19 Polyethylene Glycol (Miralax) 17 gm DAILYPRN PRN ORAL Constipation 10/15/19 08:15 11/14/19 08:14 Pyridoxine HCl (Vitamin B6) 50 mg DAILY ORAL 10/15/19 10:00 11/14/19 09:59 10/21/19 09:11 Sevelamer Carbonate (Renvela) 1,600 mg THREE TIMES A DAY ORAL 10/19/19 18:00 11/18/19 17:59 10/21/19 09:14 Thiamine HCl (Vitamin B1) 100 mg DAILY ORAL 10/15/19 09:00 11/14/19 08:59 10/21/19 09:14 Zolpidem Tartrate (Ambien) 5 mg HSPRN PRN ORAL Insomnia 10/15/19 21:00 10/22/19 20:59 10/18/19 20:19 Susi Vanegas M.D. Oct 21, 2019 11:22
--- NOTE | 2019-10-21 12:23 | Nephrology Progress Note ---
Assessment/Plan Problem List: (1) End stage renal disease on dialysis (2) UTI (urinary tract infection) (3) Morbid obesity (4) Coronary artery disease (5) Hypertension (6) Anemia (7) Patient is Religion Assessment End stage renal disease on dialysis UTI (urinary tract infection) Pyelonephritis Hyperkalemia morbid obesity Anemia / Jehova's witness CAD previous stent HTN s/p AVG DM 2 bilateral eye blindness h/o CHF Plan Phos binders Dialysis next 10/22 Kayexelate for high K Venofer and EPO, thiamin and b6 diet to renal , medium CHO per consultants Subjective ROS Limited/Unobtainable: No Constitutional: Reports: malaise Objective Objective Last 24 Hour Vital Signs Date Time Temp Pulse Resp B/P (MAP) Pulse Ox O2 Delivery O2 Flow Rate FiO2 10/21/19 09:49 Room Air 10/21/19 09:11 62 164/80 10/21/19 08:21 96.1 60 12 155/67 (96) 96 10/21/19 08:07 61 20 100 Room Air 21 10/21/19 04:00 97.3 62 139/82 (101) 10/20/19 23:34 64 136/79 (98) 10/20/19 23:00 97.0 61 20 185/78 (113) 100 10/20/19 22:24 185/78 10/20/19 21:00 97.0 60 20 159/112 (128) 96 10/20/19 21:00 Room Air 10/20/19 19:00 56 18 99 Room Air 10/20/19 16:00 98.6 61 18 161/86 (111) 98 Intake and Output 10/20/19 10/21/19 19:00 07:00 Intake Total 115 ml Output Total 2000 ml Balance -2000 ml 115 ml IV Total 115 ml Output Hemodialysis UF 2000 ml # Voids 1 # Bowel Movements 1 Laboratory Tests 10/20/19 22:45: Troponin I 0.000 10/21/19 05:35: Troponin I 0.000, White Blood Count 4.4L, Red Blood Count 3.18L, Hemoglobin 7.9L , Hematocrit 25.3L, Mean Corpuscular Volume 80, Mean Corpuscular Hemoglobin 24.8L, Mean Corpuscular Hemoglobin Concent 31.1L, Red Cell Distribution Width 19.0H, Platelet Count 90L, Mean Platelet Volume 8.3, Neutrophils (%) (Auto) , Lymphocytes (%) (Auto) , Monocytes (%) (Auto) , Eosinophils (%) (Auto) , Basophils (%) (Auto) , Sodium Level 137, Potassium Level 4.0, Chloride Level 94L , Carbon Dioxide Level 29, Anion Gap 14, Blood Urea Nitrogen 63H, Creatinine 7.0H, Estimat Glomerular Filtration Rate 7.2, Glucose Level 44L, Calcium Level 8.8 Height (Feet): 5 Height (Inches): 5.00 Weight (Pounds): 278 General Appearance: no apparent distress Cardiovascular: normal rate Respiratory/Chest: decreased breath sounds Abdomen: soft Objective no change Bryna Hunter MD Oct 21, 2019 12:23
[2019-10-21 16:00] VITALS: BP 121/62
[2019-10-21] MEDS: Ertapenem 0.5 GM in NS 55 ML IVPB SCH (17:10)
[2019-10-21] MEDS ORDERED: INVANZ1 G1 IM ×2 (18:51→18:53)
--- NOTE | 2019-10-21 19:17 | Cardiology Progress Note ---
Assessment/Plan Assessment/Plan 1. Non-cardiac chest pain, [facility]2018 with no evidence of ischemia, AMI is ruled out by two negative CE. 2. Hypertension, stage II, continue norvasc and cardura. 3. Hx of nonsustained ventricular tachycardia. 4. Hyperlipidemia. 5. Diabetes Mellitus. 6. Cor pulmonale likely due to morbid obesity and possible MARTIN, ? chronic PE. 7. Moderate pulmonary HTN, likely due to combination of ESRD and MARTIN. Subjective Subjective No cardiac events are reported. Objective Last 24 Hour Vital Signs Date Time Temp Pulse Resp B/P (MAP) Pulse Ox O2 Delivery O2 Flow Rate FiO2 10/21/19 09:49 Room Air 10/21/19 09:11 62 164/80 10/21/19 08:21 96.1 60 12 155/67 (96) 96 10/21/19 08:07 61 20 100 Room Air 21 10/21/19 04:00 97.3 62 139/82 (101) 10/20/19 23:34 64 136/79 (98) 10/20/19 23:00 97.0 61 20 185/78 (113) 100 10/20/19 22:24 185/78 10/20/19 21:00 97.0 60 20 159/112 (128) 96 10/20/19 21:00 Room Air Intake and Output 10/20/19 10/21/19 18:59 06:59 Intake Total 115 ml Output Total 2000 ml Balance -2000 ml 115 ml IV Total 115 ml Output Hemodialysis UF 2000 ml # Voids 1 # Bowel Movements 1 2D Echo: LVEF 55%, Mod AUGUSTINE/RVE, Mod Pulm. HTN, RVSP 45 mmHg, Mild MR, Mild LVH Laboratory Tests Test 10/20/19 22:45 10/21/19 05:35 Troponin I 0.000 ng/mL (0.000-0.056) 0.000 ng/mL (0.000-0.056) White Blood Count 4.4 K/UL (4.8-10.8) L Red Blood Count 3.18 M/UL (4.20-5.40) L Hemoglobin 7.9 G/DL (12.0-16.0) L Hematocrit 25.3 % (37.0-47.0) L Mean Corpuscular Volume 80 FL (80-99) Mean Corpuscular Hemoglobin 24.8 PG (27.0-31.0) L Mean Corpuscular Hemoglobin Concent 31.1 G/DL (32.0-36.0) L Red Cell Distribution Width 19.0 % (11.6-14.8) H Platelet Count 90 K/UL (150-450) L Mean Platelet Volume 8.3 FL (6.5-10.1) Neutrophils (%) (Auto) % (45.0-75.0) Lymphocytes (%) (Auto) % (20.0-45.0) Monocytes (%) (Auto) % (1.0-10.0) Eosinophils (%) (Auto) % (0.0-3.0) Basophils (%) (Auto) % (0.0-2.0) Sodium Level 137 MMOL/L (136-145) Potassium Level 4.0 MMOL/L (3.5-5.1) Chloride Level 94 MMOL/L (98-107) L Carbon Dioxide Level 29 MMOL/L (21-32) Anion Gap 14 mmol/L (5-15) Blood Urea Nitrogen 63 mg/dL (7-18) H Creatinine 7.0 MG/DL (0.55-1.30) H Estimat Glomerular Filtration Rate 7.2 mL/min (>60) Glucose Level 44 MG/DL (74-106) L Calcium Level 8.8 MG/DL (8.5-10.1) Objective General: Awake and alert, no acute distress, morbid obesity. HEENT: NC/AT. EOMI. hard of hearing. Edematous lower lip NECK: JVP cannot be assessed, no carotid bruit, carotid upstroke 2 + B/L. Cardiovascular: RRR. S1 and S2 normal. No murmur, gallops or rubs. Resp: Normal work of breathing. No cough, wheezing or crackles. Abdomen: Abdomen is soft, nondistended, large pannus, tenderness in the suprapubic region. Ext: No edema, clubbing or cyanosis, fistula with palpable thrill in the right upper extremity. Shalom Costa MD Oct 21, 2019 19:17
[2019-10-21] MEDS: Dyna-Hex 2% Top Sol 2oz TOPIC SCH (20:00)
--- NOTE | 2019-10-22 00:15 | Consultation ---
DATE OF CONSULTATION: 10/20/2019 CARDIOLOGY CONSULTATION CONSULTING PHYSICIAN: Shalom Costa M.D. REFERRING PHYSICIAN: Magdiel Gaming M.D. REASON FOR CONSULTATION: Management of chest pain. HISTORY OF PRESENT ILLNESS: The patient is a very unfortunate 65-year-old female, who presents to the hospital for evaluation of abdominal pain that has been going on for about 5 days. The patient was admitted to this facility on October 15, 2019. She had associated dysuria and frequency. There was no complains about fever or chills. Her cardiovascular history was significant for history of congestive heart failure. Her coronary artery disease risk factors include hypertension, diabetes mellitus, and history of chronic kidney disease. At the time of arrival to this facility, the patient's blood pressure was 161/80 mmHg and heart rate was 60. The patient had laboratory data in the emergency department, which showed hemoglobin of 8.9, hematocrit of 28.9, and platelet counts of 137,000. Also, potassium of 5.2, BUN and creatinine were 47 and 5.0. ProBNP of 28,815. While on the med/surg unit, the patient developed chest pain. Initial troponin I level done showed a level of 0. A 12-lead electrocardiogram was done, which revealed sinus rhythm with Q-waves in lead 3 and aVF suggestive of old inferior infarct, but no acute ischemic features. Cardiology consultation was made at the request of Dr. Gaming to assess and evaluate chest pain. PAST MEDICAL HISTORY: 1. History of congestive heart failure. 2. History of end-stage renal disease. 3. History of anemia. 4. History of obesity. 5. History of blindness. 6. History of diabetes mellitus. 7. History of diabetic neuropathy. PAST SURGICAL HISTORY: Right upper extremity fistula creation. ALLERGIES: No known drug allergies. SOCIAL HISTORY: Denies any tobacco, alcohol, or illicit drug use. REVIEW OF SYSTEMS: HEENT: Denies any headache, diplopia, or blurred vision. CONSTITUTIONAL: Denies any fever, chills, night sweats, or weight loss. CARDIOVASCULAR: Positive for chest pain. No shortness of breath. No PND, orthopnea, leg swelling, or syncope. PULMONARY: Denies any cough, hemoptysis, or wheezing. GASTROINTESTINAL: Denies any nausea, vomiting, diarrhea, constipation, abdominal pain, or GI bleed. GENITOURINARY: Some pain in the flanks. On hemodialysis 3 days a week. NEUROLOGY: Denies any motor dysfunction, sensory deficit, or altered speech. MEDICATIONS: List of medications for this patient is acetaminophen 650 q.4 h. p.r.n. pain and temperature above 100.5 degrees Fahrenheit, amlodipine 10 mg p.o. daily, Lipitor 10 mg at bedtime, Catapres 0.1 mg q.4 h. p.r.n. high blood pressure, Benadryl 50 mg p.o. q.6 hours p.r.n. for any pruritus, Colace 100 mg twice daily, Epogen 20,000 units subcutaneous Sunday, Sunday, and Sunday, Invanz 0.5 gram IM daily, gabapentin 300 mg 3 times a day, hydromorphone 0.5 mg IJ q.6 hours p.r.n. pain, insulin aspart, insulin detemir 8 units subcutaneous daily, Atrovent 0.5 mg HHN q.4 h. p.r.n. shortness of breath. Lorazepam 1 mg p.o. q.6 hours p.r.n. anxiety, pantoprazole 40 mg p.o. daily, Pyridium 100 mg 3 times a day, MiraLAX 17 grams p.o. daily p.r.n. constipation, vitamin B6 50 mg daily, Januvia 25 mg p.o. daily, vitamin B1 100 mg p.o. daily, and zolpidem 5 mg p.o. at bedtime p.r.n. insomnia. PHYSICAL EXAMINATION: VITAL SIGNS: Blood pressure at the time of my evaluation on October 20, 2019 was 185/78 mmHg, heart rate was 61, respirations of 20, temperature 97 degrees Fahrenheit, and O2 saturation of 100%. GENERAL: The patient is a very unfortunate 64-year-old female, in no apparent respiratory distress. Morbid obesity. HEENT: Atraumatic and normocephalic. Diminished hearing. Conjunctiva pallor. Edematous lower lip. NECK: JVP cannot be assessed. No carotid bruit. Carotid upstrokes 2+ bilaterally. CARDIOVASCULAR: Normal S1, S2. Regular rate and rhythm. A 2/6 mid systolic murmur at the left sternal border. PMI is at the fourth fourth intercostal space at the midclavicular line. LUNGS: Diminished breath sounds at both bases. Bilateral crackles. ABDOMEN: Soft, nontender, and nondistended. No hepatosplenomegaly. Positive bowel sounds. EXTREMITIES: There is 1+ bilateral edema. LABORATORY DATA: From October 20, 2019, sodium was 136, potassium is 4.7, chloride 92, bicarbonate 32, BUN of 71, creatinine 8.2, and glucose is 87. Calcium is 8.1. Troponin I x1 negative. WBC was 5.6, hemoglobin 8.3, hematocrit of 26.6, and platelet count is 104,000. INR is 1.2. A 2D echocardiography, normal LV systolic function with LVEF of 55%. There is presence of RV pressure and volume overload with mild left ventricular hypertrophy, moderate right atrial and ventricular cavity enlargement, large IVC with increased right atrial pressure approximately 15 mmHg, mitral regurgitation, and moderate pulmonary hypertension with RVSP measured at 45 mmHg. ASSESSMENT AND PLAN: This is a very unfortunate 64-year-old female seen in Cardiology consultation. 1. Atypical chest pain. First troponin I level is negative. We will obtain another troponin I level in 8 hours to rule out acute myocardial infarction. A 12-lead electrocardiogram stat done in the unit. This unit showed no acute ischemic features. However, there was evidence of Q-waves in lead 3 and aVF suggestive of possible old inferior wall infarct. The patient requires to be on combination of aspirin and atorvastatin as well as beta-blockers. 2. Cor pulmonale with [id number] right atrial and ventricular enlargement and evidence of RV pressure and volume overload. This could be secondary to obstructive sleep apnea and hypoxemia in view of the patient's obesity. The patient reports to be on a low-dose diuretic therapy. Digoxin would not be a great choice given the patient's associated end-stage renal disease. 3. Moderate pulmonary hypertension could be secondary to end-stage renal disease. 4. Normal LV systolic function with LVEF of approximately 55% to 60%. 5. Hypertension emergency. I would agree with the patient's amlodipine and we may have to consider Cardura 4 mg daily, which is ordered. 6. Further therapeutic and diagnostic decision will be based on the patient's response to the above medications. I would like to thank, Dr. Gaming, for the courtesy of this consultation. Shalom Costa M.D. DR: DIAMOND JOB#: [id number] CC:
--- NOTE | 2019-10-22 07:51 | Discharge Summary ---
Discharge Summary Discharge Summary _ DATE OF ADMISSION: 10/15/2019 DATE OF DISCHARGE: 10/21/2019 DISCHARGED BY: Dr. Henning REASON FOR ADMISSION: 64 years old female with past medical history of CHF, end-stage renal disease, on dialysis, morbid obesity, bilateral blindness, anemia of chronic kidney disease, presented for evaluation due to abdominal pain. Symptoms were present for 5 days. Patient reported pain in suprapubic region. She reported some flank pain. She reported dysuria and urinary frequency. No nausea or vomiting , no diarrhea. No fever or chills. Hemodialysis done earlier the day prior to presentation to ED. Upon evaluation laboratory work-up revealed no leukocytosis, hemoglobin 8.9 hematocrit, 28.9, platelet count 137. Potassium 5.2. BUN 47, creatinine 5. Glucose 158. AST 55, ALT 56, alkaline phosphatase 440. Lipase 147. EKG revealed sinus rhythm with Q waves in lead III and aVF , suggestive of old inferior infarct, but no acute ischemic features. Urinalysis revealed +4 protein, +3 leukocyte esterase, and moderate bacteria . Patient was afebrile , blood pressure was little elevated 151/80. Patient subsequently admitted for further management. CONSULTANTS: after school counselor Dr. Costa ID specialist Dr. Nicolas Facilities Management Executive Dr. Rogel GI specialist Dr. Garcia antique refinisher Dr. Hunter certified anesthesiologist assistant/oncologist Dr. Lizama [facility] COURSE: Patient admitted to medical surgical floor. Patient started on empiric antibiotic for urinary tract infection. Urine culture revealed Proteus mirabilis. Blood cultures were negative. Antibiotic regimen optimized as per ID specialist recommendation. No leukocytosis, patient remained afebrile. Hemodialysis provided as per antique refinisher recommendations with close monitoring of volumes, renal parameters and electrolytes. Patient was continued on renal diet with medium carbohydrates. Hemoglobin and hematocrit were closely monitored with goal to keep hemoglobin above 7. Hemoglobin and hematocrit remained at baseline. Prior to discharge hemoglobin 7.9, hematocrit 25.3. Stool for occult blood was positive. Anemia work-up revealed evidence of anemia of chronic disease ; ferritin 1285. Epogen provided . Noteman followed. Patient complained of the chest pain during the stay. Prior nuclear stress test at [facility] on 10/25/2018 revealed no evidence of ischemia. Troponin x2 was negative. Acute myocardial infarction was ruled out by two negative cardiac enzymes along with stable EKG, no acute ischemic changes. Echocardiogram ,done on previous admission ,revealed preserved ejection fraction of 55% ,moderate pulmonary hypertension with right ventricular systolic pressure of 45, mitral regurgitation, right volume right ventricle volume overload with mild left ventricular hypertrophy, moderate right atrial and ventricular cavity enlargement, large IVC with increased right atrial pressure, approximately 15 mmHg. Per after school counselor, chest pain was non-cardiac. Blood pressure was managed with Norvasc and Cardura. Per after school counselor patient has hypertension stage II. Blood pressure stabilized with current regimen. Statin continued. Cor pulmonale was likely due to morbid obesity and likely obstructive sleep apnea. Moderate pulmonary hypertension probably due to combination of end-stage renal disease and likely obstructive sleep apnea. Facilities Management Executive followed-up for management of blood sugar. Hemoglobin A1c 5.9 . Januvia discontinued. Facilities Management Executive recommended continue glucose monitoring without insulin coverage. Hypoglycemia protocol was in place as needed, GI specialist followed. GI prophylaxis with PPI provided. Pain management was addressed . Abdominal pain was likely due to urinary tract infection/pyelonephritis. No plans for any GI procedure at this time. Bowel regimen instituted. Antiemetic were on board as needed. Patient tolerated diet. Oral hydration encouraged. Stool OB was positive, but hemoglobin and hematocrit remained stable. Monitor hemoglobin and hematocrit as outpatient. Patient clinically stabilized and was ready for discharge home with home health services to follow. 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 DISCHARGE INSTRUCTIONS: Patient was discharged home with home health services. Follow up with primary care provider in one week. I have been assigned to dictate discharge summary for this account. I was not involved in the patient's management. Chastity Velasco NP Oct 22, 2019 07:51
== END 2019-10-21 21:00 | disposition home health service (06) | DRG 690 ==
LOC: EDBD 02:34 → EMR 02:47 → 4E 03:54 → EDBEDREQ 04:46
PROC: 5A1D70Z Performance of Urinary Filtration, Intermittent, Less than 6 Hours Per Day (ICD-10-PCS; principal; 2019-10-16)
PROC: 02HV33Z Insertion of Infusion Device into Superior Vena Cava, Percutaneous Approach (ICD-10-PCS; 2019-10-17)
DX: N12 Tubulo-interstitial nephritis, not specified as acute or chronic (principal); I13.2 Hypertensive heart and chronic kidney disease with heart failure and with stage 5 chronic kidney disease, or end stage renal disease; Z68.42 Body mass index [BMI] 45.0-49.9, adult; I50.32 Chronic diastolic (congestive) heart failure; I47.1 Supraventricular tachycardia; N18.6 End stage renal disease; E66.01 Morbid (severe) obesity due to excess calories; E11.49 Type 2 diabetes mellitus with other diabetic neurological complication; B96.4 Proteus (mirabilis) (morganii) as the cause of diseases classified elsewhere; E11.22 Type 2 diabetes mellitus with diabetic chronic kidney disease; Z99.2 Dependence on renal dialysis; Z79.4 Long term (current) use of insulin; H54.3 Unqualified visual loss, both eyes; G47.33 Obstructive sleep apnea (adult) (pediatric); I27.20 Pulmonary hypertension, unspecified; I27.81 Cor pulmonale (chronic); N25.81 Secondary hyperparathyroidism of renal origin; I25.10 Atherosclerotic heart disease of native coronary artery without angina pectoris; Z95.5 Presence of coronary angioplasty implant and graft; R07.89 Other chest pain; D63.1 Anemia in chronic kidney disease
CPT/HCPCS: 36415; 36569; 76937; 80048; 80053; 80061; 81003; 82270; 82550; 82607; 82728; 82746; 82962; 82977; 83036; 83540; 83550; 83690; 83735; 83880; 84100; 84443; 84484; 84550; 85007; 85025; 86140; 87040; 87081; 87086; 87181; 87340; 93005; 94640; 94664; 96365; 96375; 99285; J1815; S5561

== ENCOUNTER 2019-11-09 09:07 | Inpatient (IN) | payer MEDICARE, OTHER ==
[~2019-11-09] VITALS: Ht 162.6 cm; Wt 124.3 kg
[~2019-11-09 09:07] MED LIST changes: +INVANZ1 G1 IM
[2019-11-09 11:38] VITALS: BP 190/100
--- NOTE | 2019-11-09 11:50 | NUR ---
NURSE NOTES: PAGED DR LNA FOR ADMIT ORDERS, AND NEED FOR CARDIO CONSULT RELAYED BP IS 190/100 PATIENT C/O GEN PAIN, AWAITING ORDERS, CALL LIGHT WITHIN REACH. WILL MONITOR. PATIENT IS VERBAL CONVERSANT, IN STABLE CONDITION, RIGHT UPPER EXT SHUNT +THRILL, + BRUIT Addendum: 11/09/19 at 1233 by LIZBETH MARQUEZ RN RELAYED TO DR BARAKAT, HE IS AWARE OF NEED FOR ADMIT ORDERS.
[2019-11-09] MEDS ORDERED: Miralax 17gm pkt ORAL PRN (12:45)
[2019-11-09] MEDS ORDERED: Enalaprilat 2.5mg/2ml Inj IV PRN (12:45)
[2019-11-09] MEDS ORDERED: Nitroglycerin Subl 0.4mg tab SL PRN (12:45)
[2019-11-09] MEDS ORDERED: dilTIAZem HCl 25mg/5ml Inj IV PRN (12:45)
[2019-11-09] MEDS ORDERED: Albuterol/Ipratropium 3ml neb HHN PRN (12:45)
[2019-11-09] MEDS: Morphine Sulfate 2mg/ml Inj(IV/IM USE ONLY) IVP PRN ×2 (13:06→17:21)
[2019-11-09] MEDS: NovoLOG Insulin Flexpen SUBQ SCH ×2 (16:18→21:21)
[2019-11-09 17:32] LABS: BASOPHILS % (AUTO) 0.7 % (0.0-2.0); EOSINOPHILS % (AUTO) 4.8 % (0.0-3.0); HEMATOCRIT 29.6 % (37.0-47.0); HEMOGLOBIN 8.7 G/DL (12.0-16.0); LYMPHOCYTES % (AUTO) 26.7 % (20.0-45.0); MEAN CORPUSCULAR VOLUME 83 FL (80-99); MONOCYTES % (AUTO) 13.9 % (1.0-10.0); NEUTROPHILS % (AUTO) 53.9 % (45.0-75.0); PLATELET COUNT 205 K/UL (150-450); RED BLOOD COUNT 3.56 M/UL (4.20-5.40); RED CELL DISTRIBUTION WIDTH 20.5 % (11.6-14.8); WHITE BLOOD COUNT 4.8 K/UL (4.8-10.8)
--- NOTE | 2019-11-09 19:20 | NUR ---
HAND-OFF: Report given to DUKE SLOAN.
[2019-11-09 20:00] VITALS: BP 173/84
--- NOTE | 2019-11-09 20:22 | NUR ---
NURSE NOTES: RECEIVED PATIENT ASLEEP, EASILY AROUSABLE, NO COMPLAINTS CHEST PAIN AT THIS TIME. FALL PRECAUTIONS IN PLACE: CALL LIGHT AND BEDSIDE TABLE WITHIN REACH, BED IN LOW POSITION AND BED ALARM ON. WILL CONTINUE WITH PLAN OF CARE.
[2019-11-09] MEDS ORDERED: Zolpidem 5mg tab ORAL PRN (21:00)
[2019-11-09] MEDS: Heparin 5000 units/ml inj SUBQ SCH (21:21)
--- NOTE | 2019-11-09 23:04 | Cardiology Progress Note ---
Assessment/Plan Assessment/Plan The patient is seen and examined, full consult note will be dictated. Objective Last 24 Hour Vital Signs Date Time Temp Pulse Resp B/P (MAP) Pulse Ox O2 Delivery O2 Flow Rate FiO2 11/09/19 20:00 97.0 61 20 173/84 (113) 95 11/09/19 20:00 68 11/09/19 19:39 80 20 97 Room Air 21 11/09/19 17:51 97.9 11/09/19 16:13 68 11/09/19 13:33 190/100 11/09/19 13:11 Room Air 11/09/19 12:42 79 11/09/19 11:38 97.9 60 20 190/100 (130) 98 Laboratory Tests Test 11/09/19 13:50 White Blood Count 4.8 K/UL (4.8-10.8) Red Blood Count 3.56 M/UL (4.20-5.40) L Hemoglobin 8.7 G/DL (12.0-16.0) L Hematocrit 29.6 % (37.0-47.0) L Mean Corpuscular Volume 83 FL (80-99) Mean Corpuscular Hemoglobin 24.5 PG (27.0-31.0) L Mean Corpuscular Hemoglobin Concent 29.5 G/DL (32.0-36.0) L Red Cell Distribution Width 20.5 % (11.6-14.8) H Platelet Count 205 K/UL (150-450) Mean Platelet Volume 6.9 FL (6.5-10.1) Neutrophils (%) (Auto) 53.9 % (45.0-75.0) Lymphocytes (%) (Auto) 26.7 % (20.0-45.0) Monocytes (%) (Auto) 13.9 % (1.0-10.0) H Eosinophils (%) (Auto) 4.8 % (0.0-3.0) H Basophils (%) (Auto) 0.7 % (0.0-2.0) Troponin I 0.008 ng/mL (0.000-0.056) Microbiology Date/Time Source Procedure Growth Status 11/09/19 19:15 Rectum Received Shalom Costa MD Nov 09, 2019 23:03
[2019-11-09] MEDS ORDERED: Losartan 50mg tab ORAL SCH (23:15)
[2019-11-09] MEDS: Losartan 50mg tab ORAL SCH (23:46)
[2019-11-10] VITALS: BP 148/82
--- NOTE | 2019-11-10 00:07 | NUR ---
NURSE NOTES: CALLED AND LEFT MESSAGE FOR DR. FRIEDMAN RE DIALYSIS ORDER.
[2019-11-10 04:00] VITALS: BP 133/80
[2019-11-10] MEDS: Heparin 5000 units/ml inj SUBQ SCH ×3 (06:06→21:45)
--- NOTE | 2019-11-10 06:19 | NUR ---
NURSE NOTES: CALLED [facility] AND SPOKE WITH UC[facility] DIAZ [facility] ORDER FOR HD
[2019-11-10] MEDS: NovoLOG Insulin Flexpen SUBQ SCH ×4 (06:22→21:45)
[2019-11-10 06:50] LABS: INR 1.2 (0.9-1.1)
[2019-11-10 07:05] LABS: BASOPHILS % (AUTO) 0.7 % (0.0-2.0); EOSINOPHILS % (AUTO) 6.5 % (0.0-3.0); HEMATOCRIT 28.9 % (37.0-47.0); HEMOGLOBIN 8.6 G/DL (12.0-16.0); LYMPHOCYTES % (AUTO) 30.3 % (20.0-45.0); MEAN CORPUSCULAR VOLUME 83 FL (80-99); MONOCYTES % (AUTO) 13.8 % (1.0-10.0); NEUTROPHILS % (AUTO) 48.8 % (45.0-75.0); PLATELET COUNT 197 K/UL (150-450); RED BLOOD COUNT 3.49 M/UL (4.20-5.40); RED CELL DISTRIBUTION WIDTH 20.8 % (11.6-14.8); WHITE BLOOD COUNT 4.5 K/UL (4.8-10.8)
[2019-11-10 07:35] LABS: ALANINE AMINOTRANSFERASE 36 U/L (12-78); ALBUMIN 3.8 G/DL (3.4-5.0); ALBUMIN/GLOBULIN RATIO 0.8 (1.0-2.7); ALKALINE PHOSPHATASE 475 U/L (46-116); ANION GAP 11 mmol/L (5-15); ASPARTATE AMINO TRANSFERASE 33 U/L (15-37); BILIRUBIN,TOTAL 0.9 MG/DL (0.2-1.0); BLOOD UREA NITROGEN 46 mg/dL (7-18); CALCIUM 9.3 MG/DL (8.5-10.1); CARBON DIOXIDE 30 MMOL/L (21-32); CHLORIDE 99 MMOL/L (98-107); CHOLESTEROL 90 MG/DL (< 200); CREATININE 5.6 MG/DL (0.55-1.30); FERRITIN 1313 NG/ML (8-388); HDL CHOLESTEROL 49 MG/DL (40-60); POTASSIUM 4.3 MMOL/L (3.5-5.1); SODIUM 140 MMOL/L (136-145); TRIGLYCERIDES 62 MG/DL (30-150)
--- NOTE | 2019-11-10 07:45 | NUR ---
HAND-OFF: Report given to NATHALIA GAMBOA. PATIENT HAVING BREAKFAST, NO SIGNS OF DISTRESS NOTED.
--- NOTE | 2019-11-10 07:46 | NUR ---
NURSE NOTES: Received report from Jolly/RN, Patient is awake, having breakfast on bed. On 2L nasal canula, no acute distress/SOB noted. Breathing even and unlabored. Able to make needs known. Complaining of pain at this time, will give pain med. Bed in low position and locked, Call light and personal belonging within reach, Encouraged to use call light when needed. Will continue plan of care.
[2019-11-10 08:00] VITALS: BP 160/84
[2019-11-10] MEDS: Losartan 50mg tab ORAL SCH ×2 (09:00→21:44)
[2019-11-10] MEDS: Aspirin Baby 81mg ORAL SCH (09:07)
[2019-11-10] MEDS: sitaGLIPtin 25mg tab ORAL SCH (09:07)
[2019-11-10] MEDS: Morphine Sulfate 2mg/ml Inj(IV/IM USE ONLY) IVP PRN ×3 (09:08→23:33)
--- NOTE | 2019-11-10 11:07 | Consultation ---
Consult Note Consult Note asked to eval for dialysis management Patient complains of SOB and is Jehova's witness examined data reviewed . Assessment/Plan End stage renal disease on dialysis h/o UTI (urinary tract infection) & Pyelonephritis morbid obesity Anemia / Jehova's witness CAD previous stent HTN s/p AVG DM 2 bilateral eye blindness h/o CHF Plan: Dialysis today + uf EPO, thiamin and b6 Phos binders diet to renal , medium CHO per consultants Brayn Hunter MD Nov 10, 2019 11:07
--- NOTE | 2019-11-10 11:41 | Consultation ---
History of Present Illness General Date patient seen: Nov 10, 2019 Present Illness HPI 64 year-old female with a history of ESRD, Diabetes, HTN, morbid obesity, bilateral blindness presented to [facility] [place] with complaints of shortness and Chest pain. She was severely anemic. She is transferred to [facility] [place] evaluation and management. Allergies: Coded Allergies: NO KNOWN ALLERGIES (Unverified Allergy, Unknown, 10/15/15) Medication History Scheduled Amlodipine Besylate* (Amlodipine Besylate*), 10 MG ORAL DAILY, (Reported) Atorvastatin Calcium* (Lipitor*), 10 MG ORAL BEDTIME, (Reported) Docusate Sodium (Dok), 100 MG PO BID, (Reported) Epoetin Jose De Jesus (Epogen), 20,000 UNIT SUBQ mon/sun/fri, (Reported) Ertapenem (Invanz), 0.5 GM IM DAILY, (Reported) Ertapenem (Invanz), 1 GM IM DAILY, (Reported) Gabapentin* (Gabapentin*), 300 MG ORAL THREE TIMES A DAY, (Reported) Insulin Aspart (Novolog Flexpen), 1 UNITS SUBQ AC+HS, (Reported) Insulin Detemir (Levemir Flexpen), 8 SUBQ DAILY, (Reported) Pantoprazole* (Pantoprazole*), 40 MG ORAL DAILY, (Reported) Phenazopyridine Hcl* (Pyridium*), 100 MG ORAL THREE TIMES A DAY, (Reported) Pyridoxine Hcl* (Vitamin B-6*), 50 MG ORAL DAILY, (Reported) Sitagliptin* (Januvia*), 25 MG ORAL DAILY, (Reported) Thiamine Hcl* (Vitamin B-1*), 100 MG ORAL DAILY, (Reported) Scheduled PRN Acetaminophen (Tylenol), 650 MG ORAL Q4HR PRN for Mild Pain/Temp > 100.5, ( Reported) Clonidine Hcl* (Catapres*), 0.1 MG ORAL EVERY 4 HOURS PRN for For High Blood Pressure, (Reported) Diphenhydramine Hcl* (Benadryl*), 50 MG ORAL Q6H PRN for Itching, (Reported) Hydromorphone HCl/Pf (Hydromorphone 1 mg/ml Vial), 0.5 MG IJ Q6HR PRN for For Pain, (Reported) Ipratropium Custer 0.5MG/2.5ML (Ipratropium Custer 0.5MG/2.5ML), 0.5 MG HHN Q4H PRN for Shortness of Breath, (Reported) Lorazepam* (Lorazepam*), 1 MG ORAL Q6HR PRN for For Anxiety, (Reported) Polyethylene Glycol 3350* (Miralax*), 17 GM ORAL DAILY PRN for Constipation, ( Reported) Zolpidem Tartrate* (Zolpidem Tartrate*), 5 MG ORAL BEDTIME PRN for Insomnia, ( Reported) Miscellaneous Medications Unable to Obtain Medications (Unable To Obtain Meds), (Reported) Patient History Healthcare decision maker Resuscitation status Advanced Directive on File Past Medical/Surgical History Past Medical/Surgical History: (1) Lumbar radiculopathy (2) History of colonic polyps (3) Coronary artery disease (4) Morbid obesity (5) Blindness of both eyes (6) Rectal pain (7) Intractable back pain (8) Diabetes mellitus type 2 with neurological manifestations (9) ESRD (end stage renal disease) on dialysis Review of Systems All Other Systems: negative except mentioned in HPI Physical Exam General Appearance: WD/WN, no apparent distress Lines, tubes and drains: peripheral HEENT: normocephalic, atraumatic Neck: non-tender, normal alignment Respiratory/Chest: chest wall non-tender, lungs clear, normal breath sounds Cardiovascular/Chest: normal peripheral pulses, normal rate Abdomen: normal bowel sounds Last 24 Hour Vital Signs Date Time Temp Pulse Resp B/P (MAP) Pulse Ox O2 Delivery O2 Flow Rate FiO2 11/10/19 09:00 160/84 11/10/19 09:00 62 160/84 11/10/19 09:00 62 160/84 11/10/19 08:00 70 11/10/19 08:00 97.7 62 15 160/84 (109) 96 11/10/19 07:15 68 18 96 Room Air 21 11/10/19 04:00 60 11/10/19 04:00 97.0 60 20 133/80 (97) 96 11/10/19 00:00 60 11/10/19 00:00 97.1 60 20 148/82 (104) 100 11/09/19 23:46 164/95 11/09/19 21:00 Nasal Cannula 2.0 11/09/19 20:00 97.0 61 20 173/84 (113) 95 11/09/19 20:00 68 11/09/19 19:39 80 20 97 Room Air 21 11/09/19 17:51 97.9 11/09/19 16:13 68 11/09/19 13:33 190/100 11/09/19 13:11 Room Air 11/09/19 12:42 79 11/09/19 11:38 97.9 60 20 190/100 (130) 98 Intake and Output 11/09/19 11/10/19 19:00 07:00 Intake Total 300 ml 360 ml Output Total 0 ml Balance 300 ml 360 ml Intake Oral 300 ml 360 ml Output Urine Total 0 ml Laboratory Tests Test 11/09/19 13:50 11/10/19 06:25 White Blood Count 4.8 K/UL (4.8-10.8) 4.5 K/UL (4.8-10.8) L Red Blood Count 3.56 M/UL (4.20-5.40) L 3.49 M/UL (4.20-5.40) L Hemoglobin 8.7 G/DL (12.0-16.0) L 8.6 G/DL (12.0-16.0) L Hematocrit 29.6 % (37.0-47.0) L 28.9 % (37.0-47.0) L Mean Corpuscular Volume 83 FL (80-99) 83 FL (80-99) Mean Corpuscular Hemoglobin 24.5 PG (27.0-31.0) L 24.7 PG (27.0-31.0) L Mean Corpuscular Hemoglobin Concent 29.5 G/DL (32.0-36.0) L 29.8 G/DL (32.0-36.0) L Red Cell Distribution Width 20.5 % (11.6-14.8) H 20.8 % (11.6-14.8) H Platelet Count 205 K/UL (150-450) 197 K/UL (150-450) Mean Platelet Volume 6.9 FL (6.5-10.1) 6.6 FL (6.5-10.1) Neutrophils (%) (Auto) 53.9 % (45.0-75.0) 48.8 % (45.0-75.0) Lymphocytes (%) (Auto) 26.7 % (20.0-45.0) 30.3 % (20.0-45.0) Monocytes (%) (Auto) 13.9 % (1.0-10.0) H 13.8 % (1.0-10.0) H Eosinophils (%) (Auto) 4.8 % (0.0-3.0) H 6.5 % (0.0-3.0) H Basophils (%) (Auto) 0.7 % (0.0-2.0) 0.7 % (0.0-2.0) Troponin I 0.008 ng/mL (0.000-0.056) 0.007 ng/mL (0.000-0.056) Prothrombin Time 12.2 SEC (9.30-11.50) H Prothromb Time International Ratio 1.2 (0.9-1.1) H Activated Partial Thromboplast Time 33 SEC (23-33) Sodium Level 140 MMOL/L (136-145) Potassium Level 4.3 MMOL/L (3.5-5.1) Chloride Level 99 MMOL/L (98-107) Carbon Dioxide Level 30 MMOL/L (21-32) Anion Gap 11 mmol/L (5-15) Blood Urea Nitrogen 46 mg/dL (7-18) H Creatinine 5.6 MG/DL (0.55-1.30) H Estimat Glomerular Filtration Rate 9.3 mL/min (>60) Glucose Level 106 MG/DL (74-106) Hemoglobin A1c 6.2 % (4.3-6.0) H Calcium Level 9.3 MG/DL (8.5-10.1) Phosphorus Level 5.0 MG/DL (2.5-4.9) H Magnesium Level 2.8 MG/DL (1.8-2.4) H Ferritin 1313 NG/ML (8-388) H Total Bilirubin 0.9 MG/DL (0.2-1.0) Aspartate Amino Transf (AST/SGOT) 33 U/L (15-37) Alanine Aminotransferase (ALT/SGPT) 36 U/L (12-78) Alkaline Phosphatase 475 U/L (46-116) H C-Reactive Protein, Quantitative 2.0 mg/dL (0.00-0.90) H Pro-B-Type Natriuretic Peptide 25812 pg/mL (0-125) H Total Protein 8.6 G/DL (6.4-8.2) H Albumin 3.8 G/DL (3.4-5.0) Globulin 4.8 g/dL Albumin/Globulin Ratio 0.8 (1.0-2.7) L Triglycerides Level 62 MG/DL (30-150) Cholesterol Level 90 MG/DL (< 200) LDL Cholesterol 25 mg/dL (<100) HDL Cholesterol 49 MG/DL (40-60) Cholesterol/HDL Ratio 1.8 (3.3-4.4) L Vitamin B12 Level 1689 PG/ML (193-986) H Folate 19.5 NG/ML (8.6-58.9) Thyroid Stimulating Hormone (TSH) 0.809 uiU/mL (0.358-3.740) Microbiology Date/Time Source Procedure Growth Status 11/09/19 19:15 Rectum Received Height (Feet): 5 Height (Inches): 4.00 Weight (Pounds): 278 Medications Current Medications Medications (Trade) Dose Ordered Sig/Josi Route PRN Reason Start Time Stop Time Status Last Admin Dose Admin Acetaminophen (Tylenol) 650 mg Q4H PRN ORAL T>100.5 11/09/19 12:45 12/09/19 12:44 Albuterol/ Ipratropium (Albuterol/ Ipratropium) 3 ml Q4H PRN HHN Shortness of Breath 11/09/19 12:45 11/14/19 12:44 Amlodipine Besylate (Norvasc) 10 mg DAILY ORAL 11/10/19 09:00 12/10/19 08:59 Aspirin (ASA) 162 mg DAILY ORAL 11/10/19 09:00 12/10/19 08:59 11/10/19 09:07 Atorvastatin Calcium (Lipitor) 10 mg BEDTIME ORAL 11/09/19 21:00 12/09/19 20:59 11/09/19 21:13 Carvedilol (Coreg) 3.125 mg EVERY 12 HOURS ORAL 11/10/19 09:00 12/10/19 08:59 Clonidine HCl (Catapres Tab) 0.1 mg Q4H PRN ORAL SBP > 160mmHg 11/09/19 12:45 12/09/19 12:44 11/09/19 13:33 Dextrose (Dextrose 50%) 25 ml Q30M PRN IV Hypoglycemia 11/09/19 12:45 12/09/19 12:44 Dextrose (Dextrose 50%) 50 ml Q30M PRN IV Hypoglycemia 11/09/19 12:45 12/09/19 12:44 Diltiazem HCl (Cardizem) 10 mg EVERY HOUR PRN IV heart rate more than 120 bpm 11/09/19 12:45 12/09/19 12:44 Diphenhydramine HCl (Benadryl) 50 mg Q6H PRN ORAL Itching 11/09/19 12:45 12/09/19 12:44 Docusate Sodium (Colace) 100 mg THREE TIMES A DAY ORAL 11/10/19 13:00 12/10/19 12:59 Enalaprilat (Vasotec) 2.5 mg Q6H PRN IV SBP more than 170mmHg 11/09/19 12:45 12/09/19 12:44 Epoetin Jose De Jesus (Epoetin Jose De Jesus-EPBX(NON ESRD)) 10,000 unit SUN-SUN-SUN SUBQ 11/10/19 21:00 12/10/19 20:59 Gabapentin (Neurontin) 300 mg Q8HR ORAL 11/09/19 14:00 12/09/19 13:59 11/10/19 06:05 Heparin Sodium (Porcine) (Heparin 5000 units/ml) 5,000 units EVERY 8 HOURS SUBQ 11/09/19 22:00 12/09/19 21:59 11/10/19 06:06 Insulin Aspart (NovoLOG) BEFORE MEALS AND HS SUBQ 11/09/19 16:30 12/09/19 16:29 11/09/19 21:21 Losartan Potassium (Cozaar) 50 mg EVERY 12 HOURS ORAL 11/10/19 00:00 12/10/19 00:00 11/09/19 23:46 Morphine Sulfate (Morphine Sulfate) 2 mg Q4H PRN IVP Severe Pain (Pain Scale 7-10) 11/09/19 12:45 11/16/19 12:44 11/10/19 09:08 Nitroglycerin (Ntg) 0.4 mg Q5MIN X 3 DOSES PRN SL Prn Chest Pain 11/09/19 12:45 12/09/19 12:44 Ondansetron HCl (Zofran) 4 mg Q6H PRN IVP Nausea & Vomiting 11/09/19 12:45 12/09/19 12:44 Pantoprazole (Protonix) 40 mg BID ORAL 11/10/19 18:00 12/10/19 08:59 Polyethylene Glycol (Miralax) 17 gm DAILYPRN PRN ORAL Constipation 11/09/19 12:45 12/09/19 12:44 Pyridoxine HCl (Vitamin B6) 50 mg DAILY ORAL 11/11/19 09:00 12/11/19 08:59 Sevelamer Carbonate (Renvela) 800 mg THREE TIMES A DAY ORAL 11/10/19 13:00 12/10/19 12:59 Sitagliptin Phosphate (Januvia) 25 mg ACBREAKFAST ORAL 11/10/19 06:30 12/10/19 06:29 11/10/19 09:07 Thiamine HCl (Vitamin B1) 100 mg DAILY ORAL 11/11/19 09:00 12/11/19 08:59 Zolpidem Tartrate (Ambien) 5 mg HSPRN PRN ORAL Insomnia 11/09/19 21:00 11/16/19 20:59 Assessment/Plan Problem List: (1) ACS (acute coronary syndrome) ICD Codes: I20.0 - Unstable angina SNOMED: 317164036 (2) ESRD (end stage renal disease) on dialysis ICD Codes: N18.6 - End stage renal disease; Z99.2 - Dependence on renal dialysis SNOMED: 502951063 (3) Congestive heart failure (CHF) ICD Codes: I50.9 - Heart failure, unspecified SNOMED: 00952625 (4) Coronary artery disease ICD Codes: I25.10 - Coronary artery disease SNOMED: 99715655 (5) Diabetes mellitus type 2 with neurological manifestations ICD Codes: E11.49 - Type 2 diabetes mellitus with other diabetic neurological complication SNOMED: 04055926, 831260024 (6) Patient is Zoroastrian ICD Codes: Z78.9 - Other specified health status SNOMED: 07566276 Assessment/Plan: serial ekg, troponin echo HD by nephrology sliding scale diabetic diet symptomatic treatment titrate fio2 to sat of 92% Meghana Murillo MD Nov 10, 2019 11:41
[2019-11-10 12:00] VITALS: BP 155/63
[2019-11-10] MEDS: Docusate 100mg cap ORAL SCH ×2 (12:10→17:38)
--- NOTE | 2019-11-10 12:59 | CDS Physician Query ---
Clarification is required for compliance, coding accuracy, and to reflect severity of illness for this patient Dear Dr. Costa, Date: 11.10.19 CDS Name: Devin Alexander "Heart Failure / CHF" documented in progress notes, ECHO performed on 11.09.19 Left ventricular ejection fraction estimated to be 55% Normal left ventricular diastolic function Sever right atrial enlargement Please Clarify: Acuity [ ] Acute [ ] Chronic [ ] Acute on Chronic Type [ ] Systolic [ ] Diastolic [ ] Systolic & Diastolic (Combined) [ ] Other: Present on Admission: [ ] Yes [ ] No [ ] Clinically Undetermined Physician signature Date Please also document in your Progress Notes and/or Discharge Summary and indicate if the condition was present on admission. HONGD
--- NOTE | 2019-11-10 13:55 | NUR ---
NURSE NOTES: Skin assessed with wound nurse, all dressing changed.
--- NOTE | 2019-11-10 15:15 | History and Physical Report ---
DATE OF ADMISSION: 11/09/2019 TIME SEEN: On 11/10/2019 at 9 a.m. CONSULTANTS: 1. Bryan Hunter M.D. 2. Shalom Costa M.D. 3. Meghana Murillo M.D. CHIEF COMPLAINT: Shortness of breath, chest pain, ESRD. BRIEF HISTORY: This is a 64-year-old female from home, went to [facility], diagnosed of the above, and transferred to [facility] for further care. Currently, calm, shortness of breath, sitting, no complaint. REVIEW OF SYSTEMS: No chest pain. Slight shortness of breath. No nausea, vomiting, or diarrhea. PAST MEDICAL HISTORY: Includes ESRD, respiratory failure, hypertension, obese, blind, diabetes type 2, and anemia. PAST SURGICAL HISTORY: Shunt. ALLERGIES: Denies. MEDICATIONS: Include amlodipine, aspirin, pantoprazole, carvedilol, losartan, heparin, zolpidem, insulin, clonidine, enalapril, potassium. SOCIAL HISTORY: No smoking. No alcohol. No intravenous drug abuse. FAMILY HISTORY: Noncontributory. PHYSICAL EXAMINATION: GENERAL: Calm in bed, oriented x3, slight shortness of breath. VITAL SIGNS: Temperature 97 degrees, pulse 60, respirations 20, and blood pressure 133/80. CARDIOVASCULAR: No murmur. LUNGS: Distant and clear. ABDOMEN: Bowel sounds positive. Nontender and nondistended. EXTREMITIES: No cyanosis, clubbing, or edema. NEUROLOGIC: The patient moves all extremities, slightly weak. LABORATORY AND DIAGNOSTIC DATA: Labs at this time show white count 4.5, hemoglobin 8.6, hematocrit 28, and platelets 197,000. BMP shows BUN is 46 and creatinine 5.6. Troponin 0.007. INR is 1.2. ASSESSMENT: Shortness of breath, chest pain, ESRD, respiratory failure, diabetes, hypertension, anemia, obesity, and blindness. PLAN: O2 and pulmonary treatment. Blood pressure and blood sugar control. Pain control. Dietary followup. Dialysis p.r.n. Cardiology workup. Roderick Henning D.O. DR: Karlie JOB#: [id number] CC:
--- NOTE | 2019-11-10 15:22 | NUR ---
NURSE NOTES:WOUND CARE NOTES:Pt presented on admission with an Unstageable pressure injury R sacrum. Base of wound has 100% slough with surrounding non-blanching erythema with induration. tender when minimally palpated(L)0.9cm x (W)1.3cm. Scattered bullous lesions that are dry noted to both lower ext. R 1st metatarsal head necrotic but dry(L)0.5cm x (W)1.3cm .Nail matrix and metatarsal is dusky with additional dry necrotic area at plantar /base of R 1st metatarsal(L)0.5cm x (W)4cm. Dry necrotic area noted to plantar R foot. Skin folds of both breasts ,abdominal folds and groin are moist and malodorous but intact. Pt informed of wounds on R foot. Pt denied any knowledge of having wounds. Pt stated she is aware she had an ulcer on her buttocks for few weeks but stated unable to care for wound. assessed Pt's wounds. Bioburden from sacral wound removed with currette by . Base of wound more viable with small amt slough noted. Small amt sanguineous exudate noted. Pt tolerated procedure.Wound cleansed with Saline. TheraHoney applied .Moisture Barrier paste applied periwound and covered with Optifoam drsg. Pt has been educated on wound prevention and of risks for further skin decline if pressure is not being relieved.Pt demonstrated good mobility in bed and encouraged to frequently turn in bed. Tx.Plan:Cleanse Sacral wound with Wound cleanser. Apply TheraHoney. Apply Moisture Barrier Paste periwound. Cover with Optifoam drsg. Daily and prn. Apply Betadine to R st metatarsal head and plantar aspect Daily. Apply Betadine to plantar R foot Daily and prn. Reposition at least every 2hours or as tolerated. Off-load heels with pillow.
[2019-11-10 16:00] VITALS: BP 155/85
--- NOTE | 2019-11-10 19:40 | NUR ---
HAND-OFF: Report given to Klaudia/RN, Patient is in stable condition, Endorsed plan of care.
--- NOTE | 2019-11-10 19:53 | NUR ---
NURSE NOTES: Received report from NATHALIA Oden. Patient is in bed, asleep. Responsive to verbal and tactile stimuli. Breathing regular and unlabored with no s/s of SOB noted at this time. Patient's IV is patent, intact, and saline locked. Patient is on 2L NC, breathing regular and unlabored with no s/s of SOB noted. Patient denies any pain or discomfort at this time. Bed is in lowest position, breaks engaged, and call light is within reach at all times. All needs are attended to, will continue to monitor.
[2019-11-10 20:00] VITALS: BP 168/89
[2019-11-10] MEDS: HydrALAZINE 50mg tab ORAL SCH (21:44)
[2019-11-10] MEDS: Epoetin Alfa-EPBX(ESRD on dialysis)10,000 unit/ml vial SUBQ SCH (21:46)
--- NOTE | 2019-11-10 22:45 | Consultation ---
DATE OF CONSULTATION: 11/09/2019 CARDIOLOGY CONSULTATION CONSULTING PHYSICIAN: Shalom Costa M.D. REFERRING PHYSICIAN: Roderick Henning D.O. REASON FOR CONSULTATION: Management of chest pain and shortness of breath. HISTORY OF PRESENT ILLNESS: The patient is an very unfortunate 64-year-old lady who was recently discharged from this facility on the month of August for similar complaints of chest pain and shortness of breath. This time, the patient was taken to [facility] where the patient had some initial studies done and was transferred to this facility for follow care due to insurance purposes. In her previous hospitalization of [facility] and also at [facility], she had 2D echocardiography revealing heart failure with normal ejection fraction with LVEF measured approximately 55% as well as a nuclear stress test which was done in October 25, 2018 at [facility] with no evidence of myocardial wall ischemia. Her coronary artery disease risk factors include diabetes mellitus, hyperlipidemia and hypertension. She also had cardiac arrhythmias including nonsustained ventricular tachycardia which was controlled. At the time of arrival to this facility, blood pressure was 190/100 mmHg and heart rate was 60. The patient was admitted to telemetry for further evaluation and management. PAST MEDICAL HISTORY: 1. History of heart failure with normal ejection fraction. 2. End-stage renal disease. 3. Obesity. 4. Anemia. 5. Bilateral blindness. 6. Diabetes mellitus. 7. Diabetic neuropathy. 8. Normal myocardial perfusion study at [facility] in September 2018. PAST SURGICAL HISTORY: Right upper extremity fistula. ALLERGIES: No known drug allergies. SOCIAL HISTORY: Denies any tobacco, alcohol, or illicit drug use. REVIEW OF SYSTEMS: HEENT: Denies any headache, diplopia. There is no vision as she is legally blind. There is hearing loss bilaterally. CONSTITUTIONAL: Denies any fever, chills, night sweats, or weight loss. CARDIOVASCULAR: Denies any chest pain, but she has shortness of breath. Denies any PND, orthopnea, leg swelling, or syncope. PULMONARY: Denies any cough, hemoptysis, or wheezing. GASTROINTESTINAL: Denies any nausea, vomiting, diarrhea, constipation, abdominal pain, or GI bleed. GENITOURINARY: On hemodialysis three days a week. NEUROLOGY: Denies any motor dysfunction, sensory deficit, or altered speech. MEDICATIONS: Acetaminophen, Lipitor, Catapres, Benadryl, Colace, Epogen, gabapentin, hydromorphone, insulin aspart, insulin detemir, Atrovent, lorazepam, pantoprazole, MiraLAX, vitamin B6, Januvia, vitamin B1, zolpidem. PHYSICAL EXAMINATION: VITAL SIGNS: Blood pressure at time of arrival to this facility was 190/100, pulse of 60, respirations 20, temperature 97.9 degrees Fahrenheit, O2 saturation 98% on room air. GENERAL: The patient is a very unfortunate 64-year-old female, in no apparent respiratory distress, morbidly obese, legally blind. HEENT: Atraumatic and and normocephalic. Anicteric. Diminished hearing. Bilateral blindness. NECK: JVP cannot be assessed due to morbid obesity. No carotid bruit. Carotid upstrokes 2+ bilaterally. CARDIOVASCULAR: Normal S1 and S2. Regular rate and rhythm. A 2/6 mid systolic murmur left sternal border. PMI is at fourth intercostal space in the midclavicular line. LUNGS: Diminished breath sounds in both bases. ABDOMEN: Soft, nontender, and nondistended. No hepatosplenomegaly. Positive bowel sounds. EXTREMITIES: There is 1+ bilateral lower extremity edema. LABORATORY FINDINGS: WBC is 4.8, hemoglobin is 8.7, hematocrit of 29.6, and platelet count is 205. Sodium 140, potassium is 4.3, chloride 99, bicarbonate 30, BUN of 46, creatinine 5.6, and glucose 106. Hemoglobin A1c 6.2. Calcium is 9.3. Troponin I 0.008[place] [address]. Cholesterol 90, LDL 25, HDL 49. INR is 1.2. ASSESSMENT AND PLAN: The patient is a very unfortunate 64-year-old female, seen in Cardiology consultation. 1. Dyspnea. Her last chest x-ray from November 06, 2018 shows cardiomegaly with moderate pulmonary vascular congestion. We will like to repeat another chest x-ray. The patient requires preload reduction with more aggressive hemodialysis as well as afterload reduction with combination of hydralazine, calcium-channel hardik, and possibly ARBs. I would like to repeat 2D echocardiography for assessment of LV systolic and diastolic pressure. 2. End-stage renal disease. 3. Diabetes mellitus. 4. Hyperlipidemia. 5. Hypertension crisis. We will proceed with combination therapy including calcium channel hardik, hydralazine, ARBs. I would like to thank, Dr. Henning, for the courtesy of this consultation. Shalom Costa M.D. DR: Rama JOB#: [id number] CC:
[2019-11-11] VITALS: BP 129/84
[2019-11-11 04:00] VITALS: BP 133/78
[2019-11-11] MEDS: sitaGLIPtin 25mg tab ORAL SCH (06:30)
[2019-11-11] MEDS: HydrALAZINE 50mg tab ORAL SCH ×3 (06:31→21:35)
[2019-11-11] MEDS: NovoLOG Insulin Flexpen SUBQ SCH ×4 (06:31→21:37)
[2019-11-11] MEDS: Heparin 5000 units/ml inj SUBQ SCH ×3 (06:32→21:37)
--- NOTE | 2019-11-11 07:20 | NUR ---
HAND-OFF: Report given to NATHALIA Oden. Patient is in stable condition, plan of care endorsed.
--- NOTE | 2019-11-11 07:23 | NUR ---
NURSE NOTES: Received report from Klaudia/RN, Patient is up in bed, eating breakfast. On 2L nasal canula, no acute distress/SOB noted. Breathing regular and unlabored. A/O x4, Able to make needs known. Denies pain or discomfort at this time. IV on Left FA patent, and saline locked. Bed in low position and locked, Side-rails up x3. Call light and personal belonging within reach, Encouraged to use call light when needed. Will continue plan of care.
[2019-11-11 08:00] VITALS: BP 152/91
[2019-11-11] MEDS: Docusate 100mg cap ORAL SCH ×3 (08:23→17:33)
[2019-11-11] MEDS: Aspirin Baby 81mg ORAL SCH (08:25)
[2019-11-11] MEDS: Pyridoxine 50mg tab ORAL SCH (08:25)
[2019-11-11] MEDS: Thiamine 100mg tab ORAL SCH (08:26)
[2019-11-11] MEDS: Losartan 50mg tab ORAL SCH ×2 (08:26→21:00)
[2019-11-11] MEDS: Morphine Sulfate 2mg/ml Inj(IV/IM USE ONLY) IVP PRN ×2 (08:28→13:19)
[2019-11-11 08:59] LABS: BASOPHILS % (AUTO) 0.8 % (0.0-2.0); EOSINOPHILS % (AUTO) 4.7 % (0.0-3.0); HEMATOCRIT 29.6 % (37.0-47.0); HEMOGLOBIN 8.8 G/DL (12.0-16.0); LYMPHOCYTES % (AUTO) 28.8 % (20.0-45.0); MEAN CORPUSCULAR VOLUME 83 FL (80-99); MONOCYTES % (AUTO) 14.4 % (1.0-10.0); NEUTROPHILS % (AUTO) 51.3 % (45.0-75.0); PLATELET COUNT 196 K/UL (150-450); RED BLOOD COUNT 3.55 M/UL (4.20-5.40); RED CELL DISTRIBUTION WIDTH 20.6 % (11.6-14.8); WHITE BLOOD COUNT 4.7 K/UL (4.8-10.8)
[2019-11-11 09:12] LABS: ANION GAP 11 mmol/L (5-15); BLOOD UREA NITROGEN 50 mg/dL (7-18); CALCIUM 8.9 MG/DL (8.5-10.1); CARBON DIOXIDE 26 MMOL/L (21-32); CHLORIDE 98 MMOL/L (98-107); POTASSIUM 4.8 MMOL/L (3.5-5.1); SODIUM 135 MMOL/L (136-145)
--- NOTE | 2019-11-11 09:15 | NUR ---
PT EVALUATION NOTE Patient seen for initial evaluation. Patient presents with generalized weakness and impaired balance which affects patient's ability to perform mobility tasks safely. Patient requires min assist to complete bed mobility and mod assist for transfers with FWW. Patient only able to take several small sidesteps with assist and FWW, unable to ambulate at this time due to weakness and pain BLEs with WB. Patient will benefit from skilled inpatient PT intervention to address strength, balance and safety for improved level of functional mobility. Recommend discharge to SNF once medically cleared by MD. Addendum: 11/11/19 at 1304 by ALSEHA WILLARD PT Amended: Links added.
--- NOTE | 2019-11-11 10:53 | Pulmonology Progress Note ---
Assessment/Plan Problems: (1) ACS (acute coronary syndrome) (2) ESRD (end stage renal disease) on dialysis (3) Congestive heart failure (CHF) (4) Coronary artery disease (5) Diabetes mellitus type 2 with neurological manifestations (6) Patient is Caodaism (7) Morbid obesity Assessment/Plan cardio consult appreciated check echo serial ekg and troponin respiratory treatment HD by nephrology dvt prophylaxis Subjective ROS Limited/Unobtainable: No Constitutional: Reports: no symptoms HEENT: Repors: no symptoms Respiratory: Reports: no symptoms Allergies: Coded Allergies: NO KNOWN ALLERGIES (Unverified Allergy, Unknown, 10/15/15) Objective Last 24 Hour Vital Signs Date Time Temp Pulse Resp B/P (MAP) Pulse Ox O2 Delivery O2 Flow Rate FiO2 11/11/19 09:00 Nasal Cannula 2.0 11/11/19 08:26 152/91 11/11/19 08:26 60 152/91 11/11/19 08:25 60 152/91 11/11/19 08:00 96.9 60 20 152/91 (111) 100 11/11/19 08:00 60 11/11/19 06:31 133/78 11/11/19 04:00 62 11/11/19 04:00 98.0 60 24 133/78 (96) 100 11/11/19 00:00 97.8 63 20 129/84 (99) 100 11/11/19 00:00 64 11/10/19 21:44 168/89 11/10/19 21:44 168/89 11/10/19 21:43 61 168/89 11/10/19 21:00 Nasal Cannula 2.0 11/10/19 20:04 71 18 97 Room Air 21 11/10/19 20:00 97.0 64 21 168/89 (115) 100 11/10/19 20:00 61 11/10/19 16:00 63 11/10/19 16:00 98.1 66 15 155/85 (108) 96 11/10/19 12:00 66 11/10/19 12:00 97.9 66 14 155/63 (93) 96 Intake and Output 11/10/19 11/11/19 19:00 07:00 Intake Total 360 ml Output Total 3000 ml Balance -3000 ml 360 ml Intake Oral 360 ml Hemodialysis UF 3000 ml # Voids 1 General Appearance: WD/WN HEENT: normocephalic, atraumatic Respiratory/Chest: chest wall non-tender, lungs clear Breasts: no masses Cardiovascular: normal peripheral pulses, normal rate Abdomen: normal bowel sounds Genitourinary: normal external genitalia Neurologic/Psychiatric: biology intern II-XII grossly normal Microbiology Date/Time Source Procedure Growth Status 11/09/19 19:15 Rectum Received Laboratory Tests 11/10/19 14:15: Troponin I 0.001 11/11/19 07:55: Troponin I 0.000, White Blood Count 4.7L, Red Blood Count 3.55L, Hemoglobin 8.8L , Hematocrit 29.6L, Mean Corpuscular Volume 83, Mean Corpuscular Hemoglobin 24.8L, Mean Corpuscular Hemoglobin Concent 29.7L, Red Cell Distribution Width 20.6H, Platelet Count 196, Mean Platelet Volume 7.1, Neutrophils (%) (Auto) 51.3 , Lymphocytes (%) (Auto) 28.8, Monocytes (%) (Auto) 14.4H, Eosinophils (%) (Auto ) 4.7H, Basophils (%) (Auto) 0.8, Sodium Level 135L, Potassium Level 4.8, Chloride Level 98, Carbon Dioxide Level 26, Anion Gap 11, Blood Urea Nitrogen 50H, Creatinine 6.0H, Estimat Glomerular Filtration Rate 8.6, Glucose Level 145H , Calcium Level 8.9 Current Medications Medications (Trade) Dose Ordered Sig/Josi Route PRN Reason Start Time Stop Time Status Last Admin Dose Admin Acetaminophen (Tylenol) 650 mg Q4H PRN ORAL T>100.5 11/09/19 12:45 12/09/19 12:44 Albuterol/ Ipratropium (Albuterol/ Ipratropium) 3 ml Q4H PRN HHN Shortness of Breath 11/09/19 12:45 11/14/19 12:44 Amlodipine Besylate (Norvasc) 10 mg DAILY ORAL 11/10/19 09:00 12/10/19 08:59 11/11/19 08:26 Aspirin (ASA) 162 mg DAILY ORAL 11/10/19 09:00 12/10/19 08:59 11/11/19 08:25 Atorvastatin Calcium (Lipitor) 10 mg BEDTIME ORAL 11/09/19 21:00 12/09/19 20:59 11/10/19 21:44 Carvedilol (Coreg) 3.125 mg EVERY 12 HOURS ORAL 11/10/19 09:00 12/10/19 08:59 11/11/19 08:25 Clonidine HCl (Catapres Tab) 0.1 mg Q4H PRN ORAL SBP > 160mmHg 11/09/19 12:45 12/09/19 12:44 11/09/19 13:33 Dextrose (Dextrose 50%) 25 ml Q30M PRN IV Hypoglycemia 11/09/19 12:45 12/09/19 12:44 Dextrose (Dextrose 50%) 50 ml Q30M PRN IV Hypoglycemia 11/09/19 12:45 12/09/19 12:44 Diltiazem HCl (Cardizem) 10 mg EVERY HOUR PRN IV heart rate more than 120 bpm 11/09/19 12:45 12/09/19 12:44 Diphenhydramine HCl (Benadryl) 50 mg Q6H PRN ORAL Itching 11/09/19 12:45 12/09/19 12:44 11/10/19 21:58 Docusate Sodium (Colace) 100 mg THREE TIMES A DAY ORAL 11/10/19 13:00 12/10/19 12:59 11/11/19 08:23 Enalaprilat (Vasotec) 2.5 mg Q6H PRN IV SBP more than 170mmHg 11/09/19 12:45 12/09/19 12:44 Epoetin Jose De Jesus (Epoetin Jose De Jesus(ESRD on dialysis)) 10,000 unit SUBQ 11/10/19 21:00 12/10/19 20:59 11/10/19 21:46 Gabapentin (Neurontin) 300 mg Q8HR ORAL 11/09/19 14:00 12/09/19 13:59 11/11/19 06:30 Heparin Sodium (Porcine) (Heparin 5000 units/ml) 5,000 units EVERY 8 HOURS SUBQ 11/09/19 22:00 12/09/19 21:59 11/11/19 06:32 Hydralazine HCl (Apresoline) 50 mg Q8HR ORAL 11/10/19 22:00 12/10/19 21:59 11/11/19 06:31 Insulin Aspart (NovoLOG) BEFORE MEALS AND HS SUBQ 11/09/19 16:30 12/09/19 16:29 11/11/19 06:31 Losartan Potassium (Cozaar) 50 mg EVERY 12 HOURS ORAL 11/10/19 00:00 12/10/19 00:00 11/11/19 08:26 Morphine Sulfate (Morphine Sulfate) 2 mg Q4H PRN IVP Severe Pain (Pain Scale 7-10) 11/09/19 12:45 11/16/19 12:44 11/11/19 08:28 Nitroglycerin (Ntg) 0.4 mg Q5MIN X 3 DOSES PRN SL Prn Chest Pain 11/09/19 12:45 12/09/19 12:44 Ondansetron HCl (Zofran) 4 mg Q6H PRN IVP Nausea & Vomiting 11/09/19 12:45 12/09/19 12:44 Pantoprazole (Protonix) 40 mg BID ORAL 11/10/19 18:00 12/10/19 08:59 11/11/19 08:25 Polyethylene Glycol (Miralax) 17 gm DAILYPRN PRN ORAL Constipation 11/09/19 12:45 12/09/19 12:44 Pyridoxine HCl (Vitamin B6) 50 mg DAILY ORAL 11/11/19 09:00 12/11/19 08:59 11/11/19 08:25 Sevelamer Carbonate (Renvela) 800 mg THREE TIMES A DAY ORAL 11/10/19 13:00 12/10/19 12:59 11/11/19 08:25 Sitagliptin Phosphate (Januvia) 25 mg ACBREAKFAST ORAL 11/10/19 06:30 12/10/19 06:29 11/11/19 06:30 Thiamine HCl (Vitamin B1) 100 mg DAILY ORAL 11/11/19 09:00 12/11/19 08:59 11/11/19 08:26 Zolpidem Tartrate (Ambien) 5 mg HSPRN PRN ORAL Insomnia 11/09/19 21:00 11/16/19 20:59 Meghana Murillo MD Nov 11, 2019 10:53
[2019-11-11 12:00] VITALS: BP 143/74
--- NOTE | 2019-11-11 12:08 | NUR ---
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 96.9 HR 60 RR 20 B/P 152/91 TROP 0.008 IS: HEPARIN SUBC ASA PO COREG PO APRESOLINE PO ADMITTED TO TELE TELE STATUS DCP RETURN HOME
--- NOTE | 2019-11-11 12:57 | Nephrology Progress Note ---
Assessment/Plan Problem List: (1) ESRD (end stage renal disease) on dialysis (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 (3) Morbid obesity (4) Blindness of both eyes Assessment End stage renal disease on dialysis h/o UTI (urinary tract infection) & Pyelonephritis morbid obesity Anemia / Jehova's witness CAD previous stent HTN s/p AVG DM 2 bilateral eye blindness h/o CHF Plan Dialysis in am + UF EPO, thiamin and B6 Phos binders diet to renal , medium CHO per consultants Subjective ROS Limited/Unobtainable: No Constitutional: Reports: malaise, weakness Objective Objective Last 24 Hour Vital Signs Date Time Temp Pulse Resp B/P (MAP) Pulse Ox O2 Delivery O2 Flow Rate FiO2 11/11/19 09:00 Nasal Cannula 2.0 11/11/19 08:26 152/91 11/11/19 08:26 60 152/91 11/11/19 08:25 60 152/91 11/11/19 08:00 96.9 60 20 152/91 (111) 100 11/11/19 08:00 60 11/11/19 06:31 133/78 11/11/19 04:00 62 11/11/19 04:00 98.0 60 24 133/78 (96) 100 11/11/19 00:00 97.8 63 20 129/84 (99) 100 11/11/19 00:00 64 11/10/19 21:44 168/89 11/10/19 21:44 168/89 11/10/19 21:43 61 168/89 11/10/19 21:00 Nasal Cannula 2.0 11/10/19 20:04 71 18 97 Room Air 21 11/10/19 20:00 97.0 64 21 168/89 (115) 100 11/10/19 20:00 61 11/10/19 16:00 63 11/10/19 16:00 98.1 66 15 155/85 (108) 96 Intake and Output 11/10/19 11/11/19 19:00 07:00 Intake Total 360 ml Output Total 3000 ml Balance -3000 ml 360 ml Intake Oral 360 ml Hemodialysis UF 3000 ml # Voids 1 Laboratory Tests 11/10/19 14:15: Troponin I 0.001 11/11/19 07:55: Troponin I 0.000, White Blood Count 4.7L, Red Blood Count 3.55L, Hemoglobin 8.8L , Hematocrit 29.6L, Mean Corpuscular Volume 83, Mean Corpuscular Hemoglobin 24.8L, Mean Corpuscular Hemoglobin Concent 29.7L, Red Cell Distribution Width 20.6H, Platelet Count 196, Mean Platelet Volume 7.1, Neutrophils (%) (Auto) 51.3 , Lymphocytes (%) (Auto) 28.8, Monocytes (%) (Auto) 14.4H, Eosinophils (%) (Auto ) 4.7H, Basophils (%) (Auto) 0.8, Sodium Level 135L, Potassium Level 4.8, Chloride Level 98, Carbon Dioxide Level 26, Anion Gap 11, Blood Urea Nitrogen 50H, Creatinine 6.0H, Estimat Glomerular Filtration Rate 8.6, Glucose Level 145H , Calcium Level 8.9 Height (Feet): 5 Height (Inches): 4.00 Weight (Pounds): 278 General Appearance: no apparent distress, lethargic Cardiovascular: normal rate Respiratory/Chest: decreased breath sounds Abdomen: distended Objective no change Bryan Hunter MD Nov 11, 2019 12:57
--- NOTE | 2019-11-11 14:03 | NUR ---
RD ASSESSMENT & RECOMMENDATIONS SEE CARE ACTIVITY FOR COMPLETE ASSESSMENT DAILY ESTIMATED NEEDS: Needs based on ESRD on HD, DM, obesity(Adj Wt 81kg) 20-25 kcals/kg 0133-8926 total kcals 1.2-1.8 g protein/kg 97-146 g total protein 20-22 mL/kg 1151-1061 total fluid mLs NUTRITION DIAGNOSIS: * Increased protein needs R/T renal dysfunction as evidenced by pt w/ ESRD on HD. CURRENT DIET:[facility] MED PO DIET RECOMMENDATIONS: RENAL+ CCHO MED/ texture as tolerated + 1-2 carb/high prot snacks TID ADDITIONAL RECOMMENDATIONS: 1) Calibrated bedscale wt for accurate CBW 2) Add Nephrovite x 1 3) Monitor BGs closely, for hypoglycemia -> add 1-2 carb/ high prot snacks TID in b/w meals 4) Monitor lytes: phos elev -> needs renal restriction; cont phos binders w/ meals 5) Wound eval: wound photos noted
--- NOTE | 2019-11-11 14:06 | General Progress Note ---
Assessment/Plan Problem List: (1) Morbid obesity ICD Codes: E66.01 - Morbid (severe) obesity due to excess calories SNOMED: 046710239, 22812855524068 (2) Blindness of both eyes ICD Codes: H54.0 - Blindness SNOMED: 541482221 (3) ACS (acute coronary syndrome) ICD Codes: I20.0 - Unstable angina SNOMED: 170881025 (4) ESRD (end stage renal disease) on dialysis ICD Codes: N18.6 - End stage renal disease; Z99.2 - Dependence on renal dialysis SNOMED: 115500187 (5) Diabetes mellitus type 2 with neurological manifestations ICD Codes: E11.49 - Type 2 diabetes mellitus with other diabetic neurological complication SNOMED: 12240457, 302593950 Status: unchanged Assessment/Plan: pt diet o2 pulm tx pain control dialysis cbc bmp am aru eval Subjective Constitutional: Reports: weakness Allergies: Coded Allergies: NO KNOWN ALLERGIES (Unverified Allergy, Unknown, 10/15/15) All Systems: reviewed and negative except above Subjective o2nc sob Objective Last 24 Hour Vital Signs Date Time Temp Pulse Resp B/P (MAP) Pulse Ox O2 Delivery O2 Flow Rate FiO2 11/11/19 13:18 143/74 11/11/19 09:00 Nasal Cannula 2.0 11/11/19 08:26 152/91 11/11/19 08:26 60 152/91 11/11/19 08:25 60 152/91 11/11/19 08:00 96.9 60 20 152/91 (111) 100 11/11/19 08:00 60 11/11/19 06:31 133/78 11/11/19 04:00 62 11/11/19 04:00 98.0 60 24 133/78 (96) 100 11/11/19 00:00 97.8 63 20 129/84 (99) 100 11/11/19 00:00 64 11/10/19 21:44 168/89 11/10/19 21:44 168/11/10/19 21:43 61 168/11/10/19 21:00 Nasal Cannula 2.0 11/10/19 20:04 71 18 97 Room Air 21 11/10/19 20:00 97.0 64 21 168/ (115) 100 11/10/19 20:00 61 11/10/19 16:00 63 11/10/19 16:00 98.1 66 15 155/85 (108) 96 Intake and Output 11/10/19 11/11/19 19:00 07:00 Intake Total 360 ml Output Total 3000 ml Balance -3000 ml 360 ml Intake Oral 360 ml Hemodialysis UF 3000 ml # Voids 1 Laboratory Tests 11/10/19 14:15: Troponin I 0.001 11/11/19 07:55: Troponin I 0.000, White Blood Count 4.7L, Red Blood Count 3.55L, Hemoglobin 8.8L , Hematocrit 29.6L, Mean Corpuscular Volume 83, Mean Corpuscular Hemoglobin 24.8L, Mean Corpuscular Hemoglobin Concent 29.7L, Red Cell Distribution Width 20.6H, Platelet Count 196, Mean Platelet Volume 7.1, Neutrophils (%) (Auto) 51.3 , Lymphocytes (%) (Auto) 28.8, Monocytes (%) (Auto) 14.4H, Eosinophils (%) (Auto ) 4.7H, Basophils (%) (Auto) 0.8, Sodium Level 135L, Potassium Level 4.8, Chloride Level 98, Carbon Dioxide Level 26, Anion Gap 11, Blood Urea Nitrogen 50H, Creatinine 6.0H, Estimat Glomerular Filtration Rate 8.6, Glucose Level 145H , Calcium Level 8.9 Height (Feet): 5 Height (Inches): 4.00 Weight (Pounds): 278 General Appearance: lethargic EENT: normal ENT inspection Neck: normal alignment Cardiovascular: normal peripheral pulses, normal rate, regular rhythm Respiratory/Chest: chest wall non-tender, lungs clear, normal breath sounds Abdomen: normal bowel sounds, non tender, soft Extremities: normal inspection Edema: no edema noted Arm (L), no edema noted Arm (R), no edema noted Leg (L), no edema noted Leg (R), no edema noted Pedal (L), no edema noted Pedal (R), no edema noted Generalized Neurologic: responsive, motor weakness Skin: normal pigmentation, warm/dry Roderick Henning DO Nov 11, 2019 14:06
--- NOTE | 2019-11-11 14:34 | Cardiology Report ---
APPROVED REPORT EXAM: Two-dimensional and M-mode echocardiogram with Doppler and color Doppler. INDICATION Left ventricular function <Conclusion> Technically difficult study due to poor acoustic windows. Study quality precludes accurate assessment of regional wall motion. Normal left ventricular chamber size, systolic function and wall motion. Left ventricular ejection fraction estimated to be 55 %. Borderline left ventricular hypertrophy. No evidence of pericardial effusion. Mild left atrial enlargement. Severe right atrial enlargement. Mild right ventricular enlargement. Focal aortic valve sclerosis with adequate cusp excursion. Thickened mitral valve leaflets with normal excursion. Mild mitral annulus and aortic root calcification. Pulmonic valve not well visualized. Normal tricuspid valve structure. IVC dilated at 2.2 cm without physiological collapse, suggestive of increased RA pressure. A color flow and spectral Doppler study was performed and revealed: No aortic regurgitation. Mild mitral regurgitation. Normal left ventricular diastolic function. Severe tricuspid regurgitation. Tricuspid systolic velocities suggests peak right ventricular systolic pressure of 64 mmHg, consistent with severe pulmonary hypertension. Trace pulmonic regurgitation present.
--- NOTE | 2019-11-11 15:30 | NUR ---
NURSE NOTES: HD scheduled with [facility] for 11/12, Spoke with HAYLEY
--- NOTE | 2019-11-11 15:50 | Consultation ---
History of Present Illness General Date patient seen: Nov 11, 2019 Present Illness HPI This is a very pleasant and unfortunate 64-year-old female with multiple medical comorbidities who is blind and somewhat deaf that presents [facility] with significant abnormal labs, anemia, renal insufficiency and identified to have multiple wounds requiring care and management. Surgery called to evaluate and assist with care. Patient seen, patient evaluated, chart reviewed. Patient states she not having any pain but feels very weak and fatigued. States she is able to eat but has not been taking good oral intake lately. Mainly fatigue. Labs noted imaging reviewed care plan discussed with patient in detail at bedside. Allergies: Coded Allergies: NO KNOWN ALLERGIES (Unverified Allergy, Unknown, 10/15/15) Medication History Scheduled Amlodipine Besylate* (Amlodipine Besylate*), 10 MG ORAL DAILY, (Reported) Atorvastatin Calcium* (Lipitor*), 10 MG ORAL BEDTIME, (Reported) Docusate Sodium (Dok), 100 MG PO BID, (Reported) Epoetin Jose De Jesus (Epogen), 20,000 UNIT SUBQ mon/sun/fri, (Reported) Ertapenem (Invanz), 0.5 GM IM DAILY, (Reported) Ertapenem (Invanz), 1 GM IM DAILY, (Reported) Gabapentin* (Gabapentin*), 300 MG ORAL THREE TIMES A DAY, (Reported) Insulin Aspart (Novolog Flexpen), 1 UNITS SUBQ AC+HS, (Reported) Insulin Detemir (Levemir Flexpen), 8 SUBQ DAILY, (Reported) Pantoprazole* (Pantoprazole*), 40 MG ORAL DAILY, (Reported) Phenazopyridine Hcl* (Pyridium*), 100 MG ORAL THREE TIMES A DAY, (Reported) Pyridoxine Hcl* (Vitamin B-6*), 50 MG ORAL DAILY, (Reported) Sitagliptin* (Januvia*), 25 MG ORAL DAILY, (Reported) Thiamine Hcl* (Vitamin B-1*), 100 MG ORAL DAILY, (Reported) Scheduled PRN Acetaminophen (Tylenol), 650 MG ORAL Q4HR PRN for Mild Pain/Temp > 100.5, ( Reported) Clonidine Hcl* (Catapres*), 0.1 MG ORAL EVERY 4 HOURS PRN for For High Blood Pressure, (Reported) Diphenhydramine Hcl* (Benadryl*), 50 MG ORAL Q6H PRN for Itching, (Reported) Hydromorphone HCl/Pf (Hydromorphone 1 mg/ml Vial), 0.5 MG IJ Q6HR PRN for For Pain, (Reported) Ipratropium [place] 0.5MG/2.5ML (Ipratropium [place]onk 0.5MG/2.5ML), 0.5 MG HHN Q4H PRN for Shortness of Breath, (Reported) Lorazepam* (Lorazepam*), 1 MG ORAL Q6HR PRN for For Anxiety, (Reported) Polyethylene Glycol 3350* (Miralax*), 17 GM ORAL DAILY PRN for Constipation, ( Reported) Zolpidem Tartrate* (Zolpidem Tartrate*), 5 MG ORAL BEDTIME PRN for Insomnia, ( Reported) Miscellaneous Medications Unable to Obtain Medications (Unable To Obtain Meds), (Reported) Patient History History Provided By: Patient, Medical Record, PMD Healthcare decision maker Resuscitation status Advanced Directive on File Past Medical/Surgical History Past Medical/Surgical History: (1) Necrotic toes (2) Pneumonia (3) Lumbar radiculopathy (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 (5) Acute respiratory failure (6) History of colonic polyps (7) Coronary artery disease (8) Morbid obesity (9) Blindness of both eyes (10) Accelerated hypertension (11) ACS (acute coronary syndrome) (12) Acute bacterial bronchitis (13) Uncontrolled diabetes mellitus (14) Rectal pain (15) Bleeding from dialysis shunt (16) Intractable back pain (17) Open wound of right great toe (18) Pancreatitis (19) Tibia/fibula fracture (20) Pyelonephritis (21) Iron deficiency (22) Intractable abdominal pain (23) Congestive heart failure (CHF) (24) ESRD (end stage renal disease) on dialysis (25) Diabetes mellitus type 2 with neurological manifestations (26) UTI (urinary tract infection) Review of Systems Review of Symptoms General ROS: no weight loss or fever Psychological ROS: no depression or mood changes, no memory loss Ophthalmic ROS: no visual changes or eye irritation ENT ROS: no nasal congestion, hearing loss, dizziness Allergy and Immunology ROS: no allergic symptoms or urticaria Hematological and Lymphatic ROS: no swollen glands, unusual bleeding or bruising Endocrine ROS: no polyuria, polydipsia, weight changes, temperature intolerance Respiratory ROS: no cough, shortness of breath, or wheezing Cardiovascular ROS: no chest pain or dyspnea on exertion Gastrointestinal ROS: denies abdominal pain, bright red blood in stool. Musculoskeletal ROS: no myalgias or arthralgias Neurological ROS: no TIA or stroke symptoms Dermatological ROS: no new or changing skin lesions, rashes or pruritis Physical Exam Physical Exam General appearance: alert, cooperative, no distress, appears stated age Head: Normocephalic, without obvious abnormality, atraumatic Eyes: conjunctivae/corneas clear. PERRL, EOM's intact. Fundi benign Throat: Lips, mucosa, and tongue normal. Teeth and gums normal Neck: supple, symmetrical, trachea midline, no adenopathy, thyroid: not enlarged, symmetric, no tenderness/mass/nodules, no carotid bruit and no JVD Lungs: clear to auscultation bilaterally Heart: regular rate and rhythm, S1, S2 normal, no murmur, click, rub or gallop Abdomen: soft, non-tender. Bowel sounds normal. No masses, no organomegaly Extremities: extremities normal, atraumatic, toe necrosis chronic Pulses: 1 and symmetric Skin: Skin color, texture, turgor normal. No rashes or lesions Neurologic: Grossly normal Last 24 Hour Vital Signs Date Time Temp Pulse Resp B/P (MAP) Pulse Ox O2 Delivery O2 Flow Rate FiO2 11/11/19 13:18 143/74 11/11/19 09:00 Nasal Cannula 2.0 11/11/19 08:26 152/91 11/11/19 08:26 60 152/91 11/11/19 08:25 60 152/91 11/11/19 08:00 96.9 60 20 152/91 (111) 100 11/11/19 08:00 60 11/11/19 06:31 133/78 11/11/19 04:00 62 11/11/19 04:00 98.0 60 24 133/78 (96) 100 11/11/19 00:00 97.8 63 20 129/84 (99) 100 11/11/19 00:00 64 11/10/19 21:44 168/89 11/10/19 21:44 168/89 11/10/19 21:43 61 168/89 11/10/19 21:00 Nasal Cannula 2.0 11/10/19 20:04 71 18 97 Room Air 21 11/10/19 20:00 97.0 64 21 168/89 (115) 100 11/10/19 20:00 61 11/10/19 16:00 63 11/10/19 16:00 98.1 66 15 155/85 (108) 96 Intake and Output 11/10/19 11/11/19 19:00 07:00 Intake Total 360 ml Output Total 3000 ml Balance -3000 ml 360 ml Intake Oral 360 ml Hemodialysis UF 3000 ml # Voids 1 Laboratory Tests Test 11/11/19 07:55 White Blood Count 4.7 K/UL (4.8-10.8) L Red Blood Count 3.55 M/UL (4.20-5.40) L Hemoglobin 8.8 G/DL (12.0-16.0) L Hematocrit 29.6 % (37.0-47.0) L Mean Corpuscular Volume 83 FL (80-99) Mean Corpuscular Hemoglobin 24.8 PG (27.0-31.0) L Mean Corpuscular Hemoglobin Concent 29.7 G/DL (32.0-36.0) L Red Cell Distribution Width 20.6 % (11.6-14.8) H Platelet Count 196 K/UL (150-450) Mean Platelet Volume 7.1 FL (6.5-10.1) Neutrophils (%) (Auto) 51.3 % (45.0-75.0) Lymphocytes (%) (Auto) 28.8 % (20.0-45.0) Monocytes (%) (Auto) 14.4 % (1.0-10.0) H Eosinophils (%) (Auto) 4.7 % (0.0-3.0) H Basophils (%) (Auto) 0.8 % (0.0-2.0) Sodium Level 135 MMOL/L (136-145) L Potassium Level 4.8 MMOL/L (3.5-5.1) Chloride Level 98 MMOL/L (98-107) Carbon Dioxide Level 26 MMOL/L (21-32) Anion Gap 11 mmol/L (5-15) Blood Urea Nitrogen 50 mg/dL (7-18) H Creatinine 6.0 MG/DL (0.55-1.30) H Estimat Glomerular Filtration Rate 8.6 mL/min (>60) Glucose Level 145 MG/DL (74-106) H Calcium Level 8.9 MG/DL (8.5-10.1) Troponin I 0.000 ng/mL (0.000-0.056) Height (Feet): 5 Height (Inches): 4.00 Weight (Pounds): 278 Medications Current Medications Medications (Trade) Dose Ordered Sig/Josi Route PRN Reason Start Time Stop Time Status Last Admin Dose Admin Acetaminophen (Tylenol) 650 mg Q4H PRN ORAL T>100.5 11/09/19 12:45 12/09/19 12:44 Albuterol/ Ipratropium (Albuterol/ Ipratropium) 3 ml Q4H PRN HHN Shortness of Breath 11/09/19 12:45 11/14/19 12:44 Amlodipine Besylate (Norvasc) 10 mg DAILY ORAL 11/10/19 09:00 12/10/19 08:59 11/11/19 08:26 Aspirin (ASA) 162 mg DAILY ORAL 11/10/19 09:00 12/10/19 08:59 11/11/19 08:25 Atorvastatin Calcium (Lipitor) 10 mg BEDTIME ORAL 11/09/19 21:00 12/09/19 20:59 11/10/19 21:44 Carvedilol (Coreg) 3.125 mg EVERY 12 HOURS ORAL 11/10/19 09:00 12/10/19 08:59 11/11/19 08:25 Clonidine HCl (Catapres Tab) 0.1 mg Q4H PRN ORAL SBP > 160mmHg 11/09/19 12:45 12/09/19 12:44 11/09/19 13:33 Dextrose (Dextrose 50%) 25 ml Q30M PRN IV Hypoglycemia 11/09/19 12:45 12/09/19 12:44 Dextrose (Dextrose 50%) 50 ml Q30M PRN IV Hypoglycemia 11/09/19 12:45 12/09/19 12:44 Diltiazem HCl (Cardizem) 10 mg EVERY HOUR PRN IV heart rate more than 120 bpm 11/09/19 12:45 12/09/19 12:44 Diphenhydramine HCl (Benadryl) 50 mg Q6H PRN ORAL Itching 11/09/19 12:45 12/09/19 12:44 11/10/19 21:58 Docusate Sodium (Colace) 100 mg THREE TIMES A DAY ORAL 11/10/19 13:00 12/10/19 12:59 11/11/19 13:17 Enalaprilat (Vasotec) 2.5 mg Q6H PRN IV SBP more than 170mmHg 11/09/19 12:45 12/09/19 12:44 Epoetin Jose De Jesus (Epoetin Jose De Jesus(ESRD on dialysis)) 10,000 unit SUN-SUN-SUN SUBQ 11/10/19 21:00 12/10/19 20:59 11/10/19 21:46 Gabapentin (Neurontin) 300 mg Q8HR ORAL 11/09/19 14:00 12/09/19 13:59 11/11/19 13:18 Heparin Sodium (Porcine) (Heparin 5000 units/ml) 5,000 units EVERY 8 HOURS SUBQ 11/09/19 22:00 12/09/19 21:59 11/11/19 13:23 Hydralazine HCl (Apresoline) 50 mg Q8HR ORAL 11/10/19 22:00 12/10/19 21:59 11/11/19 13:18 Insulin Aspart (NovoLOG) BEFORE MEALS AND HS SUBQ 11/09/19 16:30 12/09/19 16:29 11/11/19 06:31 Losartan Potassium (Cozaar) 50 mg EVERY 12 HOURS ORAL 11/10/19 00:00 12/10/19 00:00 11/11/19 08:26 Morphine Sulfate (Morphine Sulfate) 2 mg Q4H PRN IVP Severe Pain (Pain Scale 7-10) 11/09/19 12:45 11/16/19 12:44 11/11/19 13:19 Nitroglycerin (Ntg) 0.4 mg Q5MIN X 3 DOSES PRN SL Prn Chest Pain 11/09/19 12:45 12/09/19 12:44 Ondansetron HCl (Zofran) 4 mg Q6H PRN IVP Nausea & Vomiting 11/09/19 12:45 12/09/19 12:44 Pantoprazole (Protonix) 40 mg BID ORAL 11/10/19 18:00 12/10/19 08:59 11/11/19 08:25 Polyethylene Glycol (Miralax) 17 gm DAILYPRN PRN ORAL Constipation 11/09/19 12:45 12/09/19 12:44 Pyridoxine HCl (Vitamin B6) 50 mg DAILY ORAL 11/11/19 09:00 12/11/19 08:59 11/11/19 08:25 Sevelamer Carbonate (Renvela) 800 mg THREE TIMES A DAY ORAL 11/10/19 13:00 12/10/19 12:59 11/11/19 13:17 Sitagliptin Phosphate (Januvia) 25 mg ACBREAKFAST ORAL 11/10/19 06:30 12/10/19 06:29 11/11/19 06:30 Thiamine HCl (Vitamin B1) 100 mg DAILY ORAL 11/11/19 09:00 12/11/19 08:59 11/11/19 08:26 Zolpidem Tartrate (Ambien) 5 mg HSPRN PRN ORAL Insomnia 11/09/19 21:00 11/16/19 20:59 Assessment/Plan Problem List: (1) Decubital ulcer Assessment & Plan: Pt presented on admission with an Unstageable pressure injury R sacrum. Base of wound has 100% slough with surrounding non-blanching erythema with induration. tender when minimally palpated(L)0.9cm x (W)1.3cm. Skin folds of both breasts ,abdominal folds and groin are moist and malodorous but intact. Pt informed of wounds on R foot. Pt denied any knowledge of having wounds. Pt stated she is aware she had an ulcer on her buttocks for few weeks but stated unable to care for wound. Bioburden from sacral wound removed with currette by . Base of wound more viable with small amt slough noted. Small amt sanguineous exudate noted. Pt tolerated procedure.Wound cleansed with Saline. TheraHoney applied .Moisture Barrier paste applied periwound and covered with Optifoam drsg. Pt has been educated on wound prevention and of risks for further skin decline if pressure is not being relieved.Pt demonstrated good mobility in bed and encouraged to frequently turn in bed. Tx.Plan: Cleanse Sacral wound with Wound cleanser. Apply TheraHoney. Apply Moisture Barrier Paste periwound. Cover with Optifoam drsg. Daily and prn. Apply Betadine to R st metatarsal head and plantar aspect Daily. Apply Betadine to plantar R foot Daily and prn. Reposition at least every 2hours or as tolerated. Off-load heels with pillow. nutritional supplementation needs sign over bed to state blind and hard of hearing keep patients personals close to her at all times for use DAILY ESTIMATED NEEDS: Needs based on ESRD on HD, DM, obesity(Adj Wt 81kg) 20-25 kcals/kg 7195-6539 total kcals 1.2-1.8 g protein/kg 97-146 g total protein 20-22 mL/kg 7663-3227 total fluid mLs NUTRITION DIAGNOSIS: * Increased protein needs R/T renal dysfunction as evidenced by pt w/ ESRD on HD. CURRENT DIET:[facility] MED PO DIET RECOMMENDATIONS: RENAL+ CCHO MED/ texture as tolerated + 1-2 carb/high prot snacks TID ADDITIONAL RECOMMENDATIONS: 1) Calibrated bedscale wt for accurate CBW 2) Add Nephrovite x 1 3) Monitor BGs closely, for hypoglycemia -> add 1-2 carb/ high prot snacks TID in b/w meals 4) Monitor lytes: phos elev -> needs renal restriction; cont phos binders w/ meals 5) Wound eval: wound photos noted ICD Codes: L89.90 - Pressure ulcer of unspecified site, unspecified stage SNOMED: 376106395 (2) Necrotic toes Assessment & Plan: Scattered bullous lesions that are dry noted to both lower ext. R 1st metatarsal head necrotic but dry(L)0.5cm x (W)1.3cm .Nail matrix and metatarsal is dusky with additional dry necrotic area at plantar /base of R 1st metatarsal(L)0.5cm x (W)4cm. Dry necrotic area noted to plantar R foot. Skin folds of both breasts ,abdominal folds and groin are moist and malodorous but intact. Pt informed of wounds on R foot. Pt denied any knowledge of having wounds. Tx.Plan: Apply Betadine to R st metatarsal head and plantar aspect Daily. Apply Betadine to plantar R foot Daily and prn. ICD Codes: I96 - Gangrene, not elsewhere classified SNOMED: [id number] Nestor Dyson Nov 11, 2019 15:50
[2019-11-11 16:00] VITALS: BP 135/76
--- NOTE | 2019-11-11 19:20 | NUR ---
HAND-OFF: Report given to Klaudia/RN, Patient is in stable condition, Endorsed plan of care.
--- NOTE | 2019-11-11 19:44 | NUR ---
NURSE NOTES: Received report from NATHALIA Oden. Patient is in bed, awake and responsive to verbal and tactile stimuli. Breathing regular and unlabored with no s/s of SOB noted, patient remains on 2L NC, with saturation levels between 96-98%. Patient denies any pain or discomfort at this time. IV is intact, patent and asymptomatic. Bed is in lowest position, breaks engaged, and call light is within reach at all times. AV Fistula on R arm, presence of thrill and bruit noted. All needs are attended to, will continue to monitor.
[2019-11-11 20:00] VITALS: BP 102/54
[2019-11-12] VITALS: BP 135/71
[2019-11-12 04:00] VITALS: BP 139/80
[2019-11-12] MEDS: HydrALAZINE 50mg tab ORAL SCH ×3 (06:00→20:37)
[2019-11-12] MEDS: Heparin 5000 units/ml inj SUBQ SCH ×3 (06:03→20:37)
[2019-11-12] MEDS: sitaGLIPtin 25mg tab ORAL SCH (06:04)
[2019-11-12] MEDS: NovoLOG Insulin Flexpen SUBQ SCH ×4 (06:04→20:37)
--- NOTE | 2019-11-12 07:36 | NUR ---
HAND-OFF: Report given to NATHALIA Centeno. Patient stable.
--- NOTE | 2019-11-12 07:57 | NUR ---
NURSE NOTES: Received report from NATHALIA Rudolph. Patient in bed resting, no active s/s cardiac, respiratory distress noticed at this time. Patient on 2L oxygen via NC. AOx4, A-paced HR 62. IV on left FA 20G, asymptomatic, patent, intact. Right upper arm shunt, endorsed patient schedule for HD today, VIP called. Bed in lowest position, side rails upx2, call light within reach. Will continue to monitor.
[2019-11-12 08:00] VITALS: BP 155/80
--- NOTE | 2019-11-12 08:03 | NUR ---
NURSE NOTES: Called [facility] Nephrology tele: [phone], spoke with Smith and informed patient schedule for HD today per Dr. Hunter.
[2019-11-12 08:34] LABS: BASOPHILS % (AUTO) 0.6 % (0.0-2.0); EOSINOPHILS % (AUTO) 4.5 % (0.0-3.0); HEMATOCRIT 29.4 % (37.0-47.0); HEMOGLOBIN 8.8 G/DL (12.0-16.0); MEAN CORPUSCULAR VOLUME 83 FL (80-99); MONOCYTES % (AUTO) 10.7 % (1.0-10.0); NEUTROPHILS % (AUTO) 53.2 % (45.0-75.0); PLATELET COUNT 216 K/UL (150-450); RED BLOOD COUNT 3.55 M/UL (4.20-5.40); RED CELL DISTRIBUTION WIDTH 20.1 % (11.6-14.8); WHITE BLOOD COUNT 5.2 K/UL (4.8-10.8)
[2019-11-12] MEDS: Losartan 50mg tab ORAL SCH ×2 (09:00→20:36)
[2019-11-12] MEDS: Thiamine 100mg tab ORAL SCH (09:10)
[2019-11-12] MEDS: Pyridoxine 50mg tab ORAL SCH (09:10)
[2019-11-12] MEDS: Aspirin Baby 81mg ORAL SCH (09:10)
[2019-11-12] MEDS: Docusate 100mg cap ORAL SCH ×3 (09:10→17:38)
[2019-11-12 09:24] LABS: ALANINE AMINOTRANSFERASE 34 U/L (12-78); ALBUMIN 3.8 G/DL (3.4-5.0); ALBUMIN/GLOBULIN RATIO 0.8 (1.0-2.7); ALKALINE PHOSPHATASE 495 U/L (46-116); ANION GAP 12 mmol/L (5-15); ASPARTATE AMINO TRANSFERASE 30 U/L (15-37); BILIRUBIN,TOTAL 0.7 MG/DL (0.2-1.0); BLOOD UREA NITROGEN 68 mg/dL (7-18); CALCIUM 8.8 MG/DL (8.5-10.1); CARBON DIOXIDE 27 MMOL/L (21-32); CHLORIDE 97 MMOL/L (98-107); CREATININE 7.6 MG/DL (0.55-1.30); POTASSIUM 5.3 MMOL/L (3.5-5.1); SODIUM 136 MMOL/L (136-145)
--- NOTE | 2019-11-12 09:24 | NUR ---
RADIOLOGY DEPT., CHEST X-RAY DONE.-P.DYE
--- NOTE | 2019-11-12 10:24 | Nephrology Progress Note ---
Assessment/Plan Problem List: (1) ESRD (end stage renal disease) on dialysis (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 (3) Morbid obesity (4) Blindness of both eyes Assessment End stage renal disease on dialysis h/o UTI (urinary tract infection) & Pyelonephritis morbid obesity Anemia / Jehova's witness CAD previous stent HTN s/p AVG DM 2 bilateral eye blindness h/o CHF Plan Dialysis today + UF EPO, thiamin and B6 Phos binders diet to renal , medium CHO per consultants Subjective ROS Limited/Unobtainable: No Constitutional: Reports: malaise, weakness Objective Objective Last 24 Hour Vital Signs Date Time Temp Pulse Resp B/P (MAP) Pulse Ox O2 Delivery O2 Flow Rate FiO2 11/12/19 09:00 Nasal Cannula 2.0 11/12/19 09:00 155/80 11/12/19 09:00 61 155/80 11/12/19 09:00 61 155/80 11/12/19 08:00 97.0 61 20 155/80 (105) 100 11/12/19 08:00 63 11/12/19 07:57 78 18 98 Nasal Cannula 2.0 28 11/12/19 04:00 97.7 62 24 139/80 (99) 99 11/12/19 04:00 78 11/12/19 00:00 97.4 60 24 135/71 (92) 99 11/12/19 00:00 64 11/11/19 21:35 102/54 11/11/19 21:00 Nasal Cannula 2.0 11/11/19 21:00 102/54 11/11/19 21:00 60 102/54 11/11/19 20:00 60 11/11/19 20:00 97.1 60 24 102/54 (70) 96 11/11/19 16:00 60 11/11/19 16:00 96.8 60 20 135/76 (95) 98 11/11/19 13:18 143/74 11/11/19 12:00 97.0 60 20 143/74 (97) 100 11/11/19 12:00 59 Intake and Output 11/11/19 11/12/19 19:00 07:00 Intake Total 360 ml 360 ml Balance 360 ml 360 ml Intake Oral 360 ml 360 ml # Voids 1 Laboratory Tests 11/12/19 07:50: White Blood Count 5.2, Red Blood Count 3.55L, Hemoglobin 8.8L, Hematocrit 29.4L , Mean Corpuscular Volume 83, Mean Corpuscular Hemoglobin 24.7L, Mean Corpuscular Hemoglobin Concent 29.8L, Red Cell Distribution Width 20.1H, Platelet Count 216, Mean Platelet Volume 6.3L, Neutrophils (%) (Auto) 53.2, Lymphocytes (%) (Auto) 31.0, Monocytes (%) (Auto) 10.7H, Eosinophils (%) (Auto) 4.5H, Basophils (%) (Auto) 0.6, Sodium Level 136, Potassium Level 5.3H, Chloride Level 97L, Carbon Dioxide Level 27, Anion Gap 12, Blood Urea Nitrogen 68H, Creatinine 7.6H, Estimat Glomerular Filtration Rate 6.5, Glucose Level 105 , Calcium Level 8.8, Total Bilirubin 0.7, Aspartate Amino Transf (AST/SGOT) 30, Alanine Aminotransferase (ALT/SGPT) 34, Alkaline Phosphatase 495H, Total Protein 8.7H, Albumin 3.8, Globulin 4.9, Albumin/Globulin Ratio 0.8L Height (Feet): 5 Height (Inches): 4.00 Weight (Pounds): 281 General Appearance: no apparent distress Cardiovascular: normal rate Respiratory/Chest: decreased breath sounds Abdomen: distended Objective no change Bryan Hunter MD Nov 12, 2019 10:24
[2019-11-12 12:00] VITALS: BP 135/75
--- NOTE | 2019-11-12 13:05 | Pulmonology Progress Note ---
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 (7) Morbid obesity Assessment/Plan cardio consult appreciated check echo again to look at pulmonary pressure serial ekg and troponin respiratory treatment HD by nephrology dvt prophylaxis Subjective ROS Limited/Unobtainable: No Constitutional: Reports: no symptoms HEENT: Repors: no symptoms Allergies: Coded Allergies: NO KNOWN ALLERGIES (Unverified Allergy, Unknown, 10/15/15) Objective Last 24 Hour Vital Signs Date Time Temp Pulse Resp B/P (MAP) Pulse Ox O2 Delivery O2 Flow Rate FiO2 11/12/19 12:00 97.0 60 18 135/75 (95) 98 11/12/19 09:00 Nasal Cannula 2.0 11/12/19 09:00 155/80 11/12/19 09:00 61 155/80 11/12/19 09:00 61 155/80 11/12/19 08:00 97.0 61 20 155/80 (105) 100 11/12/19 08:00 63 11/12/19 07:57 78 18 98 Nasal Cannula 2.0 28 11/12/19 04:00 97.7 62 24 139/80 (99) 99 11/12/19 04:00 78 11/12/19 00:00 97.4 60 24 135/71 (92) 99 11/12/19 00:00 64 11/11/19 21:35 102/54 11/11/19 21:00 Nasal Cannula 2.0 11/11/19 21:00 102/54 11/11/19 21:00 60 102/54 11/11/19 20:00 60 11/11/19 20:00 97.1 60 24 102/54 (70) 96 11/11/19 16:00 60 11/11/19 16:00 96.8 60 20 135/76 (95) 98 11/11/19 13:18 143/74 Intake and Output 11/11/19 11/12/19 19:00 07:00 Intake Total 360 ml 360 ml Balance 360 ml 360 ml Intake Oral 360 ml 360 ml # Voids 1 General Appearance: WD/WN HEENT: normocephalic, atraumatic Respiratory/Chest: chest wall non-tender, lungs clear Breasts: no masses Cardiovascular: normal peripheral pulses, normal rate Abdomen: normal bowel sounds, soft, non tender Genitourinary: normal external genitalia Extremities: no cyanosis Skin: no lesions 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 Complete 11/09/19 19:15 Rectum - Final NO CARBAPENEM-RESISTANT ENTEROBACTERI... Complete 11/09/19 19:15 Rectum VRE Culture - Final Enterococcus Faecalis - Vre Complete Laboratory Tests 11/12/19 07:50: White Blood Count 5.2, Red Blood Count 3.55L, Hemoglobin 8.8L, Hematocrit 29.4L , Mean Corpuscular Volume 83, Mean Corpuscular Hemoglobin 24.7L, Mean Corpuscular Hemoglobin Concent 29.8L, Red Cell Distribution Width 20.1H, Platelet Count 216, Mean Platelet Volume 6.3L, Neutrophils (%) (Auto) 53.2, Lymphocytes (%) (Auto) 31.0, Monocytes (%) (Auto) 10.7H, Eosinophils (%) (Auto) 4.5H, Basophils (%) (Auto) 0.6, Sodium Level 136, Potassium Level 5.3H, Chloride Level 97L, Carbon Dioxide Level 27, Anion Gap 12, Blood Urea Nitrogen 68H, Creatinine 7.6H, Estimat Glomerular Filtration Rate 6.5, Glucose Level 105 , Calcium Level 8.8, Total Bilirubin 0.7, Aspartate Amino Transf (AST/SGOT) 30, Alanine Aminotransferase (ALT/SGPT) 34, Alkaline Phosphatase 495H, Total Protein 8.7H, Albumin 3.8, Globulin 4.9, Albumin/Globulin Ratio 0.8L Current Medications Medications (Trade) Dose Ordered Sig/Josi Route PRN Reason Start Time Stop Time Status Last Admin Dose Admin Acetaminophen (Tylenol) 650 mg Q4H PRN ORAL T>100.5 11/09/19 12:45 12/09/19 12:44 Albuterol/ Ipratropium (Albuterol/ Ipratropium) 3 ml Q4H PRN HHN Shortness of Breath 11/09/19 12:45 11/14/19 12:44 Amlodipine Besylate (Norvasc) 10 mg DAILY ORAL 11/10/19 09:00 12/10/19 08:59 11/11/19 08:26 Aspirin (ASA) 162 mg DAILY ORAL 11/10/19 09:00 12/10/19 08:59 11/12/19 09:10 Atorvastatin Calcium (Lipitor) 10 mg BEDTIME ORAL 11/09/19 21:00 12/09/19 20:59 11/11/19 21:34 Carvedilol (Coreg) 3.125 mg EVERY 12 HOURS ORAL 11/10/19 09:00 12/10/19 08:59 11/11/19 08:25 Clonidine HCl (Catapres Tab) 0.1 mg Q4H PRN ORAL SBP > 160mmHg 11/09/19 12:45 12/09/19 12:44 11/09/19 13:33 Dextrose (Dextrose 50%) 25 ml Q30M PRN IV Hypoglycemia 11/09/19 12:45 12/09/19 12:44 Dextrose (Dextrose 50%) 50 ml Q30M PRN IV Hypoglycemia 11/09/19 12:45 12/09/19 12:44 Diltiazem HCl (Cardizem) 10 mg EVERY HOUR PRN IV heart rate more than 120 bpm 11/09/19 12:45 12/09/19 12:44 Diphenhydramine HCl (Benadryl) 50 mg Q6H PRN ORAL Itching 11/09/19 12:45 12/09/19 12:44 11/10/19 21:58 Docusate Sodium (Colace) 100 mg THREE TIMES A DAY ORAL 11/10/19 13:00 12/10/19 12:59 11/12/19 09:10 Enalaprilat (Vasotec) 2.5 mg Q6H PRN IV SBP more than 170mmHg 11/09/19 12:45 12/09/19 12:44 Epoetin Jose De Jesus (Epoetin Jose De Jesus(ESRD on dialysis)) 10,000 unit SUN-SUN-SUN SUBQ 11/10/19 21:00 12/10/19 20:59 11/10/19 21:46 Gabapentin (Neurontin) 300 mg Q8HR ORAL 11/09/19 14:00 12/09/19 13:59 11/12/19 06:03 Heparin Sodium (Porcine) (Heparin 5000 units/ml) 5,000 units EVERY 8 HOURS SUBQ 11/09/19 22:00 12/09/19 21:59 11/12/19 06:03 Hydralazine HCl (Apresoline) 50 mg Q8HR ORAL 11/10/19 22:00 12/10/19 21:59 11/11/19 13:18 Insulin Aspart (NovoLOG) BEFORE MEALS AND HS SUBQ 11/09/19 16:30 12/09/19 16:29 11/12/19 12:59 Losartan Potassium (Cozaar) 50 mg EVERY 12 HOURS ORAL 11/10/19 00:00 12/10/19 00:00 11/11/19 08:26 Morphine Sulfate (Morphine Sulfate) 2 mg Q4H PRN IVP Severe Pain (Pain Scale 7-10) 11/09/19 12:45 11/16/19 12:44 11/11/19 13:19 Nitroglycerin (Ntg) 0.4 mg Q5MIN X 3 DOSES PRN SL Prn Chest Pain 11/09/19 12:45 12/09/19 12:44 Ondansetron HCl (Zofran) 4 mg Q6H PRN IVP Nausea & Vomiting 11/09/19 12:45 12/09/19 12:44 Pantoprazole (Protonix) 40 mg BID ORAL 11/10/19 18:00 12/10/19 08:59 11/12/19 09:10 Polyethylene Glycol (Miralax) 17 gm DAILYPRN PRN ORAL Constipation 11/09/19 12:45 12/09/19 12:44 Pyridoxine HCl (Vitamin B6) 50 mg DAILY ORAL 11/11/19 09:00 12/11/19 08:59 11/12/19 09:10 Sevelamer Carbonate (Renvela) 800 mg THREE TIMES A DAY ORAL 11/10/19 13:00 12/10/19 12:59 11/12/19 09:10 Sitagliptin Phosphate (Januvia) 25 mg ACBREAKFAST ORAL 11/10/19 06:30 12/10/19 06:29 11/11/19 06:30 Thiamine HCl (Vitamin B1) 100 mg DAILY ORAL 11/11/19 09:00 12/11/19 08:59 11/12/19 09:10 Zolpidem Tartrate (Ambien) 5 mg HSPRN PRN ORAL Insomnia 11/09/19 21:00 11/16/19 20:59 Meghana Murillo MD Nov 12, 2019 13:05
[2019-11-12] MEDS: Morphine Sulfate 2mg/ml Inj(IV/IM USE ONLY) IVP PRN (13:54)
--- NOTE | 2019-11-12 15:03 | General Progress Note ---
Assessment/Plan Problem List: (1) Morbid obesity ICD Codes: E66.01 - Morbid (severe) obesity due to excess calories SNOMED: 660101325, 89985549553637 (2) Blindness of both eyes ICD Codes: H54.0 - Blindness SNOMED: 841786577 (3) ACS (acute coronary syndrome) ICD Codes: I20.0 - Unstable angina SNOMED: 461294393 (4) ESRD (end stage renal disease) on dialysis ICD Codes: N18.6 - End stage renal disease; Z99.2 - Dependence on renal dialysis SNOMED: 028233961 (5) Diabetes mellitus type 2 with neurological manifestations ICD Codes: E11.49 - Type 2 diabetes mellitus with other diabetic neurological complication SNOMED: 42234437, 704405329 Status: stable, progressing Assessment/Plan: pt diet o2 pulm tx pain control dialysis cbc bmp am dc plan w hh Subjective Constitutional: Reports: weakness Allergies: Coded Allergies: NO KNOWN ALLERGIES (Unverified Allergy, Unknown, 10/15/15) All Systems: reviewed and negative except above Subjective o2nc sob Objective Last 24 Hour Vital Signs Date Time Temp Pulse Resp B/P (MAP) Pulse Ox O2 Delivery O2 Flow Rate FiO2 11/12/19 13:05 135/75 11/12/19 12:00 60 11/12/19 12:00 97.0 60 18 135/75 (95) 98 11/12/19 09:00 Nasal Cannula 2.0 11/12/19 09:00 155/80 11/12/19 09:00 61 155/80 11/12/19 09:00 61 155/80 11/12/19 08:00 97.0 61 20 155/80 (105) 100 11/12/19 08:00 63 11/12/19 07:57 78 18 98 Nasal Cannula 2.0 28 11/12/19 04:00 97.7 62 24 139/80 (99) 99 11/12/19 04:00 78 11/12/19 00:00 97.4 60 24 135/71 (92) 99 11/12/19 00:00 64 11/11/19 21:35 102/54 11/11/19 21:00 Nasal Cannula 2.0 11/11/19 21:00 102/54 11/11/19 21:00 60 102/54 11/11/19 20:00 60 11/11/19 20:00 97.1 60 24 102/54 (70) 96 11/11/19 16:00 60 11/11/19 16:00 96.8 60 20 135/76 (95) 98 Intake and Output 11/11/19 11/12/19 19:00 07:00 Intake Total 360 ml 360 ml Balance 360 ml 360 ml Intake Oral 360 ml 360 ml # Voids 1 Laboratory Tests 11/12/19 07:50: White Blood Count 5.2, Red Blood Count 3.55L, Hemoglobin 8.8L, Hematocrit 29.4L , Mean Corpuscular Volume 83, Mean Corpuscular Hemoglobin 24.7L, Mean Corpuscular Hemoglobin Concent 29.8L, Red Cell Distribution Width 20.1H, Platelet Count 216, Mean Platelet Volume 6.3L, Neutrophils (%) (Auto) 53.2, Lymphocytes (%) (Auto) 31.0, Monocytes (%) (Auto) 10.7H, Eosinophils (%) (Auto) 4.5H, Basophils (%) (Auto) 0.6, Sodium Level 136, Potassium Level 5.3H, Chloride Level 97L, Carbon Dioxide Level 27, Anion Gap 12, Blood Urea Nitrogen 68H, Creatinine 7.6H, Estimat Glomerular Filtration Rate 6.5, Glucose Level 105 , Calcium Level 8.8, Total Bilirubin 0.7, Aspartate Amino Transf (AST/SGOT) 30, Alanine Aminotransferase (ALT/SGPT) 34, Alkaline Phosphatase 495H, Total Protein 8.7H, Albumin 3.8, Globulin 4.9, Albumin/Globulin Ratio 0.8L Height (Feet): 5 Height (Inches): 4.00 Weight (Pounds): 282 General Appearance: lethargic EENT: normal ENT inspection Neck: normal alignment Cardiovascular: normal peripheral pulses, normal rate, regular rhythm Respiratory/Chest: chest wall non-tender, lungs clear, decreased breath sounds Abdomen: normal bowel sounds, non tender, soft Extremities: normal inspection Edema: no edema noted Arm (L), no edema noted Arm (R), no edema noted Leg (L), no edema noted Leg (R), no edema noted Pedal (L), no edema noted Pedal (R), no edema noted Generalized Neurologic: responsive, motor weakness Skin: normal pigmentation, warm/dry Roderick Henning DO Nov 12, 2019 15:03
--- NOTE | 2019-11-12 15:20 | NUR ---
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 97.0 HR 60 RR 18 B/P 155/60 2L NC O2 SAT @ 98% K 5.3 ALK PHOS 495 IS: HYDRALAZINE PO HEPARIN SUBC PROTONIX TELE STATUS
[2019-11-12 16:00] VITALS: BP 137/72
--- NOTE | 2019-11-12 17:03 | NUR ---
DISCHARGE PLANNING DISCHARGE ORDER NOTED Patient has been accepted to; [facility] [place] [address] [facility] [phone] for Nurse to Nurse report [facility] ETA for transportation: Will Call
--- NOTE | 2019-11-12 17:07 | NUR ---
NURSE NOTES: Per case resolution specialist, patient accepted from [facility], discharge patient after HD. Paged Dr. Henning, discharge patient with [facility] and will follow up there. Order noted, entered, carried out. Addendum: 11/12/19 at 1711 by TIO RICHARDSON RN [facility] tele : [phone] for nurse to nurse report
--- NOTE | 2019-11-12 18:10 | Surgery Progress Note ---
Surgery Progress Note Subjective Additional Comments no acute events comfortable labs noted imaging reviewed Objective Last 24 Hour Vital Signs Date Time Temp Pulse Resp B/P (MAP) Pulse Ox O2 Delivery O2 Flow Rate FiO2 11/12/19 16:00 64 11/12/19 16:00 98.2 61 18 137/72 (93) 99 11/12/19 13:05 135/75 11/12/19 12:00 60 11/12/19 12:00 97.0 60 18 135/75 (95) 98 11/12/19 09:00 Nasal Cannula 2.0 11/12/19 09:00 155/80 11/12/19 09:00 61 155/80 11/12/19 09:00 61 155/80 11/12/19 08:00 97.0 61 20 155/80 (105) 100 11/12/19 08:00 63 11/12/19 07:57 78 18 98 Nasal Cannula 2.0 28 11/12/19 04:00 97.7 62 24 139/80 (99) 99 11/12/19 04:00 78 11/12/19 00:00 97.4 60 24 135/71 (92) 99 11/12/19 00:00 64 11/11/19 21:35 102/54 11/11/19 21:00 Nasal Cannula 2.0 11/11/19 21:00 102/54 11/11/19 21:00 60 102/54 11/11/19 20:00 60 11/11/19 20:00 97.1 60 24 102/54 (70) 96 I&O Intake and Output 11/11/19 11/12/19 19:00 07:00 Intake Total 360 ml 360 ml Balance 360 ml 360 ml Intake Oral 360 ml 360 ml # Voids 1 Dressing: saturated Wound: clean Cardiovascular: RSR Respiratory: clear Abdomen: non-tender, present bowel sounds Extremities: no tenderness, no cyanosis Laboratory Tests Test 11/12/19 07:50 White Blood Count 5.2 K/UL (4.8-10.8) Red Blood Count 3.55 M/UL (4.20-5.40) L Hemoglobin 8.8 G/DL (12.0-16.0) L Hematocrit 29.4 % (37.0-47.0) L Mean Corpuscular Volume 83 FL (80-99) Mean Corpuscular Hemoglobin 24.7 PG (27.0-31.0) L Mean Corpuscular Hemoglobin Concent 29.8 G/DL (32.0-36.0) L Red Cell Distribution Width 20.1 % (11.6-14.8) H Platelet Count 216 K/UL (150-450) Mean Platelet Volume 6.3 FL (6.5-10.1) L Neutrophils (%) (Auto) 53.2 % (45.0-75.0) Lymphocytes (%) (Auto) 31.0 % (20.0-45.0) Monocytes (%) (Auto) 10.7 % (1.0-10.0) H Eosinophils (%) (Auto) 4.5 % (0.0-3.0) H Basophils (%) (Auto) 0.6 % (0.0-2.0) Sodium Level 136 MMOL/L (136-145) Potassium Level 5.3 MMOL/L (3.5-5.1) H Chloride Level 97 MMOL/L (98-107) L Carbon Dioxide Level 27 MMOL/L (21-32) Anion Gap 12 mmol/L (5-15) Blood Urea Nitrogen 68 mg/dL (7-18) H Creatinine 7.6 MG/DL (0.55-1.30) H Estimat Glomerular Filtration Rate 6.5 mL/min (>60) Glucose Level 105 MG/DL (74-106) Calcium Level 8.8 MG/DL (8.5-10.1) Total Bilirubin 0.7 MG/DL (0.2-1.0) Aspartate Amino Transf (AST/SGOT) 30 U/L (15-37) Alanine Aminotransferase (ALT/SGPT) 34 U/L (12-78) Alkaline Phosphatase 495 U/L (46-116) H Total Protein 8.7 G/DL (6.4-8.2) H Albumin 3.8 G/DL (3.4-5.0) Globulin 4.9 g/dL Albumin/Globulin Ratio 0.8 (1.0-2.7) L Plan Problems: (1) Decubital ulcer Assessment & Plan: Pt presented on admission with an Unstageable pressure injury R sacrum. Base of wound has 100% slough with surrounding non-blanching erythema with induration. tender when minimally palpated(L)0.9cm x (W)1.3cm. Skin folds of both breasts ,abdominal folds and groin are moist and malodorous but intact. Pt informed of wounds on R foot. Pt denied any knowledge of having wounds. Pt stated she is aware she had an ulcer on her buttocks for few weeks but stated unable to care for wound. Bioburden from sacral wound removed with currette by . Base of wound more viable with small amt slough noted. Small amt sanguineous exudate noted. Pt tolerated procedure.Wound cleansed with Saline. TheraHoney applied .Moisture Barrier paste applied periwound and covered with Optifoam drsg. Pt has been educated on wound prevention and of risks for further skin decline if pressure is not being relieved.Pt demonstrated good mobility in bed and encouraged to frequently turn in bed. Tx.Plan: Cleanse Sacral wound with Wound cleanser. Apply TheraHoney. Apply Moisture Barrier Paste periwound. Cover with Optifoam drsg. Daily and prn. Apply Betadine to R st metatarsal head and plantar aspect Daily. Apply Betadine to plantar R foot Daily and prn. Reposition at least every 2hours or as tolerated. Off-load heels with pillow. nutritional supplementation needs sign over bed to state blind and hard of hearing keep patients personals close to her at all times for use DAILY ESTIMATED NEEDS: Needs based on ESRD on HD, DM, obesity(Adj Wt 81kg) 20-25 kcals/kg 3801-5834 total kcals 1.2-1.8 g protein/kg 97-146 g total protein 20-22 mL/kg 9063-9207 total fluid mLs NUTRITION DIAGNOSIS: * Increased protein needs R/T renal dysfunction as evidenced by pt w/ ESRD on HD. CURRENT DIET:CCHO MED PO DIET RECOMMENDATIONS: RENAL+ CCHO MED/ texture as tolerated + 1-2 carb/high prot snacks TID ADDITIONAL RECOMMENDATIONS: 1) Calibrated bedscale wt for accurate CBW 2) Add Nephrovite x 1 3) Monitor BGs closely, for hypoglycemia -> add 1-2 carb/ high prot snacks TID in b/w meals 4) Monitor lytes: phos elev -> needs renal restriction; cont phos binders w/ meals 5) Wound eval: wound photos noted (2) Necrotic toes Assessment & Plan: Scattered bullous lesions that are dry noted to both lower ext. R 1st metatarsal head necrotic but dry(L)0.5cm x (W)1.3cm .Nail matrix and metatarsal is dusky with additional dry necrotic area at plantar /base of R 1st metatarsal(L)0.5cm x (W)4cm. Dry necrotic area noted to plantar R foot. Skin folds of both breasts ,abdominal folds and groin are moist and malodorous but intact. Pt informed of wounds on R foot. Pt denied any knowledge of having wounds. Tx.Plan: Apply Betadine to R st metatarsal head and plantar aspect Daily. Apply Betadine to plantar R foot Daily and prn. Nestor Dyson Nov 12, 2019 18:10
--- NOTE | 2019-11-12 19:52 | NUR ---
HAND-OFF: Report given to NATHALIA Rudolph.
[2019-11-12 20:00] VITALS: BP 113/63
--- NOTE | 2019-11-12 20:10 | Cardiology Progress Note ---
Assessment/Plan Assessment/Plan 1. Dyspnea, probably due to chronic diastolic CHF, continue with preload reduction with more aggressive hemodialysis as well as afterload reduction with combination of hydralazine, calcium-channel hardik, and possibly ARBs. 2. End-stage renal disease. 3. Diabetes mellitus. 4. Hyperlipidemia. 5. Hypertension, well controlled, continue current medical regimen. 6. Severe pulmonary HTN. Subjective Subjective Sinus rhythm at rate of 68. Objective Last 24 Hour Vital Signs Date Time Temp Pulse Resp B/P (MAP) Pulse Ox O2 Delivery O2 Flow Rate FiO2 11/12/19 16:00 64 11/12/19 16:00 98.2 61 18 137/72 (93) 99 11/12/19 13:05 135/75 11/12/19 12:00 60 11/12/19 12:00 97.0 60 18 135/75 (95) 98 11/12/19 09:00 Nasal Cannula 2.0 11/12/19 09:00 155/80 11/12/19 09:00 61 155/80 11/12/19 09:00 61 155/80 11/12/19 08:00 97.0 61 20 155/80 (105) 100 11/12/19 08:00 63 11/12/19 07:57 78 18 98 Nasal Cannula 2.0 28 11/12/19 04:00 97.7 62 24 139/80 (99) 99 11/12/19 04:00 78 11/12/19 00:00 97.4 60 24 135/71 (92) 99 11/12/19 00:00 64 11/11/19 21:35 102/54 11/11/19 21:00 Nasal Cannula 2.0 11/11/19 21:00 102/54 11/11/19 21:00 60 102/54 Intake and Output 11/11/19 11/12/19 19:00 07:00 Intake Total 360 ml 360 ml Balance 360 ml 360 ml Intake Oral 360 ml 360 ml # Voids 1 2D Echo: LVEF 55%, Mod AUGUSTINE/RVE, Sev Pulm. HTN, RVSP 64mmHg, Mild MR, Mild LVH Laboratory Tests Test 11/12/19 07:50 White Blood Count 5.2 K/UL (4.8-10.8) Red Blood Count 3.55 M/UL (4.20-5.40) L Hemoglobin 8.8 G/DL (12.0-16.0) L Hematocrit 29.4 % (37.0-47.0) L Mean Corpuscular Volume 83 FL (80-99) Mean Corpuscular Hemoglobin 24.7 PG (27.0-31.0) L Mean Corpuscular Hemoglobin Concent 29.8 G/DL (32.0-36.0) L Red Cell Distribution Width 20.1 % (11.6-14.8) H Platelet Count 216 K/UL (150-450) Mean Platelet Volume 6.3 FL (6.5-10.1) L Neutrophils (%) (Auto) 53.2 % (45.0-75.0) Lymphocytes (%) (Auto) 31.0 % (20.0-45.0) Monocytes (%) (Auto) 10.7 % (1.0-10.0) H Eosinophils (%) (Auto) 4.5 % (0.0-3.0) H Basophils (%) (Auto) 0.6 % (0.0-2.0) Sodium Level 136 MMOL/L (136-145) Potassium Level 5.3 MMOL/L (3.5-5.1) H Chloride Level 97 MMOL/L (98-107) L Carbon Dioxide Level 27 MMOL/L (21-32) Anion Gap 12 mmol/L (5-15) Blood Urea Nitrogen 68 mg/dL (7-18) H Creatinine 7.6 MG/DL (0.55-1.30) H Estimat Glomerular Filtration Rate 6.5 mL/min (>60) Glucose Level 105 MG/DL (74-106) Calcium Level 8.8 MG/DL (8.5-10.1) Total Bilirubin 0.7 MG/DL (0.2-1.0) Aspartate Amino Transf (AST/SGOT) 30 U/L (15-37) Alanine Aminotransferase (ALT/SGPT) 34 U/L (12-78) Alkaline Phosphatase 495 U/L (46-116) H Total Protein 8.7 G/DL (6.4-8.2) H Albumin 3.8 G/DL (3.4-5.0) Globulin 4.9 g/dL Albumin/Globulin Ratio 0.8 (1.0-2.7) L Objective HEENT: Atraumatic and and normocephalic. Anicteric. Diminished hearing. Bilateral blindness. NECK: JVP cannot be assessed due to morbid obesity. No carotid bruit. Carotid upstrokes 2+ bilaterally. CARDIOVASCULAR: Normal S1 and S2. Regular rate and rhythm. A 2/6 mid systolic murmur left sternal border. PMI is at fourth intercostal space in the midclavicular line. LUNGS: Diminished breath sounds in both bases. ABDOMEN: Soft, nontender, and nondistended. No hepatosplenomegaly. Positive bowel sounds. EXTREMITIES: There is 1+ bilateral lower extremity edema. Shalom Costa MD Nov 12, 2019 20:10
[2019-11-12] MEDS: Epoetin Alfa-EPBX(ESRD on dialysis)10,000 unit/ml vial SUBQ SCH (20:42)
--- NOTE | 2019-11-12 20:46 | NUR ---
NURSE NOTES: Received report from NATHALIA Centeno. Patient is in bed, currently receiving dialysis and the dialysis nurse is at bedside. Patient is awake, alert and responsive. Breathing regular and unlabored with no s/s of SOB noted. Patient is on a NC 2L with saturation of 100%. Patient's IV is patent, intact, and saline locked. Patient denies any pain or discomfort at this time. Morning RN informed this RN that the patient is being discharged to [facility] per MD orders. Paper work is complete, medications given. Will contact ambulance to arrange transfer and will call receiving nurse to give report. Patient remains stable. Bed is in lowest position, breaks engaged, and call light is within reach. Will continue to monitor.
--- NOTE | 2019-11-12 21:02 | NUR ---
NURSE NOTES: Contacted ambulance to set up transfer of patient, the ambulance is on will call. Estimated arrival of 2200. Called the receiving facility to give report to the nurse, but no answer. Will try again.
--- NOTE | 2019-11-12 21:11 | NUR ---
NURSE NOTES: Contacted [facility] and spoke to the receiving nurse Makenna, gave report to Makenna with the estimated arrival of the ambulance at 2200.
--- NOTE | 2019-11-12 23:38 | NUR ---
NURSE NOTES: Ambulance informed us that they are running late and may arrive in another 30-45minutes. Patient remains stable.
[2019-11-13] VITALS: BP 144/65
--- NOTE | 2019-11-13 01:01 | NUR ---
NURSE NOTES: Upon arrival of the ambulance, the patient verbalized that she no longer wanted to be transferred over to the facility and instead she wanted to go home. Multiple attempts were made to advise patient that she needs to be transferred and she could not go home on her own, but patient profusely refused the transfer. Contacted Dr. Diaz number and left a message with the handle lathe operator and he will page the doctor. Will continue to monitor.
[2019-11-13 04:00] VITALS: BP 149/74
[2019-11-13] MEDS: sitaGLIPtin 25mg tab ORAL SCH (05:45)
[2019-11-13] MEDS: HydrALAZINE 50mg tab ORAL SCH ×2 (05:45→15:11)
[2019-11-13] MEDS: Heparin 5000 units/ml inj SUBQ SCH ×2 (05:45→15:18)
[2019-11-13] MEDS: NovoLOG Insulin Flexpen SUBQ SCH ×2 (05:45→12:59)
[2019-11-13 07:33] LABS: BASOPHILS % (AUTO) 1.1 % (0.0-2.0); EOSINOPHILS % (AUTO) 3.1 % (0.0-3.0); HEMATOCRIT 27.9 % (37.0-47.0); HEMOGLOBIN 8.4 G/DL (12.0-16.0); LYMPHOCYTES % (AUTO) 30.1 % (20.0-45.0); MEAN CORPUSCULAR VOLUME 82 FL (80-99); MONOCYTES % (AUTO) 12.7 % (1.0-10.0); PLATELET COUNT 207 K/UL (150-450); RED CELL DISTRIBUTION WIDTH 20.4 % (11.6-14.8); WHITE BLOOD COUNT 5.3 K/UL (4.8-10.8)
--- NOTE | 2019-11-13 07:44 | NUR ---
HAND-OFF: Report given to NATHALIA Garcia. Patient is stable.
--- NOTE | 2019-11-13 08:04 | NUR ---
NURSE NOTES: pt in bed sleeping. Pt on potline monitor right now, no signs of cardiac or respiratory distress at this time. Pt is refusing to go to rehab facility. IV is patent. Pt has a R upper arm shunt. Bed is locked and in lowest position. Call light within reach. Will continue to monitor pt and labs.
[2019-11-13 08:18] VITALS: BP 157/80
[2019-11-13] MEDS: Aspirin Baby 81mg ORAL SCH (09:16)
[2019-11-13] MEDS: Losartan 50mg tab ORAL SCH (09:16)
[2019-11-13] MEDS: Thiamine 100mg tab ORAL SCH (09:17)
[2019-11-13] MEDS: Pyridoxine 50mg tab ORAL SCH (09:17)
[2019-11-13] MEDS: Docusate 100mg cap ORAL SCH ×2 (09:17→12:57)
--- NOTE | 2019-11-13 11:19 | Nephrology Progress Note ---
Assessment/Plan Problem List: (1) ESRD (end stage renal disease) on dialysis (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 (3) Morbid obesity (4) Blindness of both eyes Assessment End stage renal disease on dialysis h/o UTI (urinary tract infection) & Pyelonephritis morbid obesity Anemia / Jehova's witness CAD previous stent HTN s/p AVG DM 2 bilateral eye blindness h/o CHF Plan Dialysis again in am 11/14/19 + UF EPO, thiamin and B6 Phos binders diet to renal , medium CHO per consultants Subjective ROS Limited/Unobtainable: No Constitutional: Reports: malaise, weakness Objective Objective Last 24 Hour Vital Signs Date Time Temp Pulse Resp B/P (MAP) Pulse Ox O2 Delivery O2 Flow Rate FiO2 11/13/19 09:17 65 157/80 11/13/19 09:16 157/80 11/13/19 09:16 65 157/80 11/13/19 08:41 Nasal Cannula 2.0 11/13/19 08:18 96.8 65 18 157/80 (105) 99 11/13/19 05:45 149/74 11/13/19 04:00 64 11/13/19 04:00 97.6 70 20 149/74 (99) 100 11/13/19 00:00 98.0 68 20 144/65 (91) 97 11/13/19 00:00 67 11/12/19 21:00 Nasal Cannula 2.0 11/12/19 20:10 75 18 97 Nasal Cannula 2.0 28 11/12/19 20:00 60 11/12/19 20:00 97.8 60 20 113/63 (80) 100 11/12/19 16:00 64 11/12/19 16:00 98.2 61 18 137/72 (93) 99 11/12/19 13:05 135/75 11/12/19 12:00 60 11/12/19 12:00 97.0 60 18 135/75 (95) 98 Intake and Output 11/12/19 11/13/19 19:00 07:00 Intake Total 240 ml 240 ml Output Total 2600 ml Balance 240 ml -2360 ml Intake Oral 240 ml Blood Product 240 ml Hemodialysis UF 2600 ml Laboratory Tests 11/13/19 06:35: White Blood Count 5.3, Red Blood Count 3.40L, Hemoglobin 8.4L, Hematocrit 27.9L , Mean Corpuscular Volume 82, Mean Corpuscular Hemoglobin 24.6L, Mean Corpuscular Hemoglobin Concent 29.9L, Red Cell Distribution Width 20.4H, Platelet Count 207, Mean Platelet Volume 7.1, Neutrophils (%) (Auto) 53.0, Lymphocytes (%) (Auto) 30.1, Monocytes (%) (Auto) 12.7H, Eosinophils (%) (Auto) 3.1H, Basophils (%) (Auto) 1.1 Height (Feet): 5 Height (Inches): 4.00 Weight (Pounds): 282 General Appearance: no apparent distress Cardiovascular: normal rate Respiratory/Chest: decreased breath sounds Abdomen: distended Objective no change Bryan Hunter MD Nov 13, 2019 11:19
[2019-11-13 11:59] VITALS: BP 153/81
--- NOTE | 2019-11-13 14:03 | Surgery Progress Note ---
Surgery Progress Note Subjective Additional Comments patient seen and examined at bedside no acute events labs pending seemingly comfortable no complaints Objective Last 24 Hour Vital Signs Date Time Temp Pulse Resp B/P (MAP) Pulse Ox O2 Delivery O2 Flow Rate FiO2 11/13/19 12:00 66 11/13/19 11:59 97.1 71 18 153/81 (105) 99 11/13/19 09:17 65 157/80 11/13/19 09:16 157/80 11/13/19 09:16 65 157/80 11/13/19 08:41 Nasal Cannula 2.0 11/13/19 08:18 96.8 65 18 157/80 (105) 99 11/13/19 08:00 64 11/13/19 05:45 149/74 11/13/19 04:00 64 11/13/19 04:00 97.6 70 20 149/74 (99) 100 11/13/19 00:00 98.0 68 20 144/65 (91) 97 11/13/19 00:00 67 11/12/19 21:00 Nasal Cannula 2.0 11/12/19 20:10 75 18 97 Nasal Cannula 2.0 28 11/12/19 20:00 60 11/12/19 20:00 97.8 60 20 113/63 (80) 100 11/12/19 16:00 64 11/12/19 16:00 98.2 61 18 137/72 (93) 99 I&O Intake and Output 11/12/19 11/13/19 19:00 07:00 Intake Total 240 ml 240 ml Output Total 2600 ml Balance 240 ml -2360 ml Intake Oral 240 ml Blood Product 240 ml Hemodialysis UF 2600 ml Dressing: other Wound: other Drains: other Cardiovascular: RSR Respiratory: decreased breath sounds Abdomen: soft, present bowel sounds Extremities: no tenderness, no cyanosis, other Laboratory Tests Test 11/13/19 06:35 White Blood Count 5.3 K/UL (4.8-10.8) Red Blood Count 3.40 M/UL (4.20-5.40) L Hemoglobin 8.4 G/DL (12.0-16.0) L Hematocrit 27.9 % (37.0-47.0) L Mean Corpuscular Volume 82 FL (80-99) Mean Corpuscular Hemoglobin 24.6 PG (27.0-31.0) L Mean Corpuscular Hemoglobin Concent 29.9 G/DL (32.0-36.0) L Red Cell Distribution Width 20.4 % (11.6-14.8) H Platelet Count 207 K/UL (150-450) Mean Platelet Volume 7.1 FL (6.5-10.1) Neutrophils (%) (Auto) 53.0 % (45.0-75.0) Lymphocytes (%) (Auto) 30.1 % (20.0-45.0) Monocytes (%) (Auto) 12.7 % (1.0-10.0) H Eosinophils (%) (Auto) 3.1 % (0.0-3.0) H Basophils (%) (Auto) 1.1 % (0.0-2.0) Plan Problems: (1) Decubital ulcer Assessment & Plan: Pt presented on admission with an Unstageable pressure injury R sacrum. Base of wound has 100% slough with surrounding non-blanching erythema with induration. tender when minimally palpated(L)0.9cm x (W)1.3cm. Skin folds of both breasts ,abdominal folds and groin are moist and malodorous but intact. Pt informed of wounds on R foot. Pt denied any knowledge of having wounds. Pt stated she is aware she had an ulcer on her buttocks for few weeks but stated unable to care for wound. Bioburden from sacral wound removed with currette by . Base of wound more viable with small amt slough noted. Small amt sanguineous exudate noted. Pt tolerated procedure.Wound cleansed with Saline. TheraHoney applied .Moisture Barrier paste applied periwound and covered with Optifoam drsg. Pt has been educated on wound prevention and of risks for further skin decline if pressure is not being relieved.Pt demonstrated good mobility in bed and encouraged to frequently turn in bed. Tx.Plan: Cleanse Sacral wound with Wound cleanser. Apply TheraHoney. Apply Moisture Barrier Paste periwound. Cover with Optifoam drsg. Daily and prn. Apply Betadine to R st metatarsal head and plantar aspect Daily. Apply Betadine to plantar R foot Daily and prn. Reposition at least every 2hours or as tolerated. Off-load heels with pillow. nutritional supplementation needs sign over bed to state blind and hard of hearing keep patients personals close to her at all times for use DAILY ESTIMATED NEEDS: Needs based on ESRD on HD, DM, obesity(Adj Wt 81kg) 20-25 kcals/kg 9266-7689 total kcals 1.2-1.8 g protein/kg 97-146 g total protein 20-22 mL/kg 1122-2348 total fluid mLs NUTRITION DIAGNOSIS: * Increased protein needs R/T renal dysfunction as evidenced by pt w/ ESRD on HD. CURRENT DIET:CCHO MED PO DIET RECOMMENDATIONS: RENAL+ CCHO MED/ texture as tolerated + 1-2 carb/high prot snacks TID ADDITIONAL RECOMMENDATIONS: 1) Calibrated bedscale wt for accurate CBW 2) Add Nephrovite x 1 3) Monitor BGs closely, for hypoglycemia -> add 1-2 carb/ high prot snacks TID in b/w meals 4) Monitor lytes: phos elev -> needs renal restriction; cont phos binders w/ meals 5) Wound eval: wound photos noted (2) Necrotic toes Assessment & Plan: Scattered bullous lesions that are dry noted to both lower ext. R 1st metatarsal head necrotic but dry(L)0.5cm x (W)1.3cm .Nail matrix and metatarsal is dusky with additional dry necrotic area at plantar /base of R 1st metatarsal(L)0.5cm x (W)4cm. Dry necrotic area noted to plantar R foot. Skin folds of both breasts ,abdominal folds and groin are moist and malodorous but intact. Pt informed of wounds on R foot. Pt denied any knowledge of having wounds. Tx.Plan: Apply Betadine to R st metatarsal head and plantar aspect Daily. Apply Betadine to plantar R foot Daily and prn. Nestor Dyson Nov 13, 2019 14:03
--- NOTE | 2019-11-13 14:50 | General Progress Note ---
Assessment/Plan Problem List: (1) Morbid obesity ICD Codes: E66.01 - Morbid (severe) obesity due to excess calories SNOMED: 916777550, 40117098402441 (2) Blindness of both eyes ICD Codes: H54.0 - Blindness SNOMED: 853465210 (3) ACS (acute coronary syndrome) ICD Codes: I20.0 - Unstable angina SNOMED: 715644003 (4) ESRD (end stage renal disease) on dialysis ICD Codes: N18.6 - End stage renal disease; Z99.2 - Dependence on renal dialysis SNOMED: 628550606 (5) Diabetes mellitus type 2 with neurological manifestations ICD Codes: E11.49 - Type 2 diabetes mellitus with other diabetic neurological complication SNOMED: 93318964, 142354648 Status: stable, progressing Assessment/Plan: pt diet o2 pulm tx pain control dialysis cbc bmp am dc w hh if clear Subjective Constitutional: Reports: weakness Allergies: Coded Allergies: NO KNOWN ALLERGIES (Unverified Allergy, Unknown, 10/15/15) All Systems: reviewed and negative except above Subjective sleepy calm Objective Last 24 Hour Vital Signs Date Time Temp Pulse Resp B/P (MAP) Pulse Ox O2 Delivery O2 Flow Rate FiO2 11/13/19 12:00 66 11/13/19 11:59 97.1 71 18 153/81 (105) 99 11/13/19 09:17 65 157/80 11/13/19 09:16 157/80 11/13/19 09:16 65 157/80 11/13/19 08:41 Nasal Cannula 2.0 11/13/19 08:18 96.8 65 18 157/80 (105) 99 11/13/19 08:00 64 11/13/19 05:45 149/74 11/13/19 04:00 64 11/13/19 04:00 97.6 70 20 149/74 (99) 100 11/13/19 00:00 98.0 68 20 144/65 (91) 97 11/13/19 00:00 67 11/12/19 21:00 Nasal Cannula 2.0 11/12/19 20:10 75 18 97 Nasal Cannula 2.0 28 11/12/19 20:00 60 11/12/19 20:00 97.8 60 20 113/63 (80) 100 11/12/19 16:00 64 11/12/19 16:00 98.2 61 18 137/72 (93) 99 Intake and Output 11/12/19 11/13/19 19:00 07:00 Intake Total 240 ml 240 ml Output Total 2600 ml Balance 240 ml -2360 ml Intake Oral 240 ml Blood Product 240 ml Hemodialysis UF 2600 ml Laboratory Tests 11/13/19 06:35: White Blood Count 5.3, Red Blood Count 3.40L, Hemoglobin 8.4L, Hematocrit 27.9L , Mean Corpuscular Volume 82, Mean Corpuscular Hemoglobin 24.6L, Mean Corpuscular Hemoglobin Concent 29.9L, Red Cell Distribution Width 20.4H, Platelet Count 207, Mean Platelet Volume 7.1, Neutrophils (%) (Auto) 53.0, Lymphocytes (%) (Auto) 30.1, Monocytes (%) (Auto) 12.7H, Eosinophils (%) (Auto) 3.1H, Basophils (%) (Auto) 1.1 Height (Feet): 5 Height (Inches): 4.00 Weight (Pounds): 274 General Appearance: lethargic EENT: normal ENT inspection Neck: normal alignment Cardiovascular: normal peripheral pulses, normal rate, regular rhythm Respiratory/Chest: chest wall non-tender, lungs clear, normal breath sounds Abdomen: normal bowel sounds, non tender, soft Extremities: normal inspection Edema: no edema noted Arm (L), no edema noted Arm (R), no edema noted Leg (L), no edema noted Leg (R), no edema noted Pedal (L), no edema noted Pedal (R), no edema noted Generalized Neurologic: motor weakness Skin: normal pigmentation, warm/dry Roderick Henning DO Nov 13, 2019 14:49
[2019-11-13 15:11] VITALS: BP 145/76
--- NOTE | 2019-11-13 17:45 | NUR ---
NURSE NOTES: pt DC home via ambulance in stable condition. Pt discharge papers were not able to signs because she is blind. Belongings were given to pt. staff services manager taken off from pt. Pt was explained DC instructions as well as given a copy. Pt med sheet was given to pt so caregiver can go over it and know what pt is to continue taking at home. IV was taken out by pt. she is not bleeding at this time. Pt to make f/u appt with PCP within 1 wk of DC. Wound pictures were taken and wound care was done before discharge. Per care specialist, she will have someone waiting at pt home and stay with her after discharge.
--- NOTE | 2019-11-13 18:21 | Diagnostic Imaging Report ---
Indication: Dyspnea Technique: One view of the chest Comparison: 11/06/2018 Findings: Previously demonstrated tunneled dialysis catheter is no longer present. There is a left chest pacemaker now present. The heart remains enlarged. No definite infiltrates, effusions, or congestion. Impression: Cardiomegaly No definite acute process
--- NOTE | 2019-11-17 10:48 | Discharge Summary ---
Discharge Summary Discharge Summary _ DATE OF ADMISSION: 11/09/2019 DATE OF DISCHARGE: 11/13/2019 DISCHARGED BY: Dr. Henning REASON FOR ADMISSION: 64 years old female with past medical history of end-stage renal disease, on hemodialysis, hypertension, diabetes mellitus, hypertension, bilateral blindness , initially presented to [facility] with complaint of shortness of breath and chest pain. Patient was also severely anemic . Patient transferred to [facility] due to insurance for further evaluation and management. Patient admitted to telemetry floor CONSULTANTS: warehouse inventory clerk Dr. Jensen pulmonary Dr. Murillo sales audit clerk Dr. Hunter surgery Dr. Dyson [facility] COURSE: Patient admitted to telemetry floor. Deck Mate followed. Serial troponin were negative. EKG revealed no acute ischemic changes. Telemetry showed A pacing Patient was ruled out for acute myocardial infarction. Echocardiogram revealed preserved ejection fraction of 65% with borderline left ventricular hypertrophy. No evidence of wall motion abnormality to the extent visualized. Borderline left ventricular hypertrophy. Severe right atrial enlargement. Right ventricular systolic pressure of 64 consistent with severe pulmonary hypertension. Arterial duplex bilateral lower extremity revealed moderate ischemia , however exam was very limited due to patient body habitus. Chest x-ray revealed cardiomegaly , but no acute process. Supplemental oxygen provided and titrated to keep pulse oximetry above 92%. Pulmonary toilet with bronchodilator provided. Blood pressure was managed with multiple antihypertensive, including hydralazine, amlodipine , beta-hardik and ARB . Blood pressure s remained stable. Statin and antiplatelet therapy with aspirin continued. DVT prophylaxis provided. Blood sugar was managed with sliding scale of insulin. Hemoglobin A1c 6.2, at goal. GI prophylaxis provided. Hemoglobin and hematocrit were closely monitored with goal to keep hemoglobin above 7. Patient was on Epogen. Patient is Jehovah witness and unable to accept any transfusion. Prior to discharge hemoglobin 8.4, hematocrit 27.9. Dyspnea was most probably due to chronic diastolic congestive heart failure, as per warehouse inventory clerk. Preload reduction continued. Deck Mate recommended more aggressive hemodialysis with ultrafiltration. Hemodialysis provided as per sales audit clerk with close monitoring of volumes, renal parameters and electrolytes. Patient has un-stageable pressure injury in the right sacrum. Wound care provided per surgeon's recommendation. Patient clinically stabilized and was ready for discharge home. 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 Blindness of both eyes Right sacrum un-stageable pressure ulcer, present on admission DISCHARGE MEDICATIONS: See Medication Reconciliation list. DISCHARGE INSTRUCTIONS: Patient was discharged home. Follow-up with primary care provider in 1 week. I have been assigned to dictate discharge summary for this account. I was not involved in the patient's management. Chastity Velasco NP Nov 17, 2019 10:48
== END 2019-11-13 17:46 | disposition home or self-care (01) | DRG 291 ==
LOC: 2E 11:00
DX: I13.2 Hypertensive heart and chronic kidney disease with heart failure and with stage 5 chronic kidney disease, or end stage renal disease (principal); N18.6 End stage renal disease; I24.9 Acute ischemic heart disease, unspecified; I50.32 Chronic diastolic (congestive) heart failure; I16.9 Hypertensive crisis, unspecified; E11.52 Type 2 diabetes mellitus with diabetic peripheral angiopathy with gangrene; I96 Gangrene, not elsewhere classified; Z68.41 Body mass index [BMI] 40.0-44.9, adult; E11.22 Type 2 diabetes mellitus with diabetic chronic kidney disease; E66.01 Morbid (severe) obesity due to excess calories; E11.49 Type 2 diabetes mellitus with other diabetic neurological complication; L89.150 Pressure ulcer of sacral region, unstageable; I27.20 Pulmonary hypertension, unspecified; Z79.4 Long term (current) use of insulin; Z79.82 Long term (current) use of aspirin; D64.9 Anemia, unspecified; E66.9 Obesity, unspecified; I25.10 Atherosclerotic heart disease of native coronary artery without angina pectoris; Z95.5 Presence of coronary angioplasty implant and graft; E78.5 Hyperlipidemia, unspecified; H54.8 Legal blindness, as defined in USA
CPT/HCPCS: 36415; 71045; 80048; 80053; 80061; 82607; 82728; 82746; 82962; 83036; 83735; 83880; 84100; 84443; 84484; 85025; 85610; 85730; 86140; 87081; 87340; 93306; 93925; 94664; J1815

== ENCOUNTER 2020-01-25 09:23 | Inpatient (IN) | payer MEDICARE, OTHER ==
[~2020-01-25] VITALS: Ht 175.3 cm; Wt 126.3 kg
[2020-01-25 14:20] VITALS: BP 161/88
[2020-01-25] MEDS ORDERED: Zolpidem 5mg tab ORAL PRN (15:30)
[2020-01-25] MEDS ORDERED: Miralax 17gm pkt ORAL PRN (15:30)
[2020-01-25 16:00] VITALS: BP 178/87
[2020-01-25] MEDS: NovoLOG Insulin Flexpen SUBQ SCH ×2 (16:30→21:00)
[2020-01-25] MEDS: HydrALAZINE 50mg tab ORAL PRN ×2 (16:33→23:56)
[2020-01-25] MEDS ORDERED: Docusate 100mg cap ORAL SCH (18:00)
[2020-01-25 18:17] LABS: BASOPHILS % (AUTO) 1.6 % (0.0-2.0); EOSINOPHILS % (AUTO) 5.1 % (0.0-3.0); HEMATOCRIT 30.9 % (37.0-47.0); HEMOGLOBIN 9.6 G/DL (12.0-16.0); LYMPHOCYTES % (AUTO) 21.8 % (20.0-45.0); MEAN CORPUSCULAR VOLUME 76 FL (80-99); MONOCYTES % (AUTO) 12.9 % (1.0-10.0); NEUTROPHILS % (AUTO) 58.6 % (45.0-75.0); PLATELET COUNT 252 K/UL (150-450); RED BLOOD COUNT 4.05 M/UL (4.20-5.40); WHITE BLOOD COUNT 5.7 K/UL (4.8-10.8)
--- NOTE | 2020-01-25 18:29 | Consultation ---
History of Present Illness General Date patient seen: Jan 25, 2020 Time patient seen: 17:30 Chief Complaint: AMS, hypoglycemia Referring physician: dr Pimentel Reason for Consultation: in hospital management Present Illness HPI 64 years old female with past medical history of end-stage renal disease, on hemodialysis, diabetes mellitus, hypertension, neuropathy, bilateral blindness, initially presented to [facility] due to altered mental status and hypoglycemia. Apparently patient was taking to her friend over the phone and told her to come and check on her, since she fell that she was going to hypoglycemic episode . When friend came she found her altered and called paramedics. Upon arrival of paramedics blood sugar was 53, patient received 1 ampule of D10 , and blood sugar improved to 92 with some improvement in mental status. Patient initially was brought to [place] ER. Blood pressure was significantly elevated 205/[address] scan of the head revealed no acute intracranial pathology. Laboratory work-up revealed no leukocytosis . Lactic acid 1.6. Evidence of anemia with hemoglobin 10.5 , hematocrit 34.3. Chest x-ray revealed cardiomegaly, left upper chest pacemaker, normal lung delcid. Chemistry demonstrated hyponatremia with sodium 115 , potassium 3.0 and evidence of renal failure. In 2 hours after giving bolus of normal saline Na significantly improved to 132 which is unlikely the right value , potassium was 3.5. After stabilization patient was transferred to [place] telemetry floor for further management. Allergies: Coded Allergies: NO KNOWN ALLERGIES (Unverified Allergy, Unknown, 10/15/15) Medication History Scheduled Amlodipine Besylate* (Amlodipine Besylate*), 10 MG ORAL DAILY, (Reported) Atorvastatin Calcium* (Lipitor*), 10 MG ORAL BEDTIME, (Reported) Docusate Sodium (Dok), 100 MG PO BID, (Reported) Epoetin Jose De Jesus (Epogen), 20,000 UNIT SUBQ mon/wed/fri, (Reported) Ertapenem (Invanz), 0.5 GM IM DAILY, (Reported) Ertapenem (Invanz), 1 GM IM DAILY, (Reported) Gabapentin* (Gabapentin*), 300 MG ORAL THREE TIMES A DAY, (Reported) Insulin Aspart (Novolog Flexpen), 1 UNITS SUBQ AC+HS, (Reported) Insulin Detemir (Levemir Flexpen), 8 SUBQ DAILY, (Reported) Pantoprazole* (Pantoprazole*), 40 MG ORAL DAILY, (Reported) Phenazopyridine Hcl* (Pyridium*), 100 MG ORAL THREE TIMES A DAY, (Reported) Pyridoxine Hcl* (Vitamin B-6*), 50 MG ORAL DAILY, (Reported) Sitagliptin* (Januvia*), 25 MG ORAL DAILY, (Reported) Thiamine Hcl* (Vitamin B-1*), 100 MG ORAL DAILY, (Reported) Scheduled PRN Acetaminophen (Tylenol), 650 MG ORAL Q4HR PRN for Mild Pain/Temp > 100.5, ( Reported) Clonidine Hcl* (Catapres*), 0.1 MG ORAL EVERY 4 HOURS PRN for For High Blood Pressure, (Reported) Diphenhydramine Hcl* (Benadryl*), 50 MG ORAL Q6H PRN for Itching, (Reported) Hydromorphone HCl/Pf (Hydromorphone 1 mg/ml Vial), 0.5 MG IJ Q6HR PRN for For Pain, (Reported) Ipratropium [place] 0.5MG/2.5ML (Ipratropium Falun 0.5MG/2.5ML), 0.5 MG HHN Q4H PRN for Shortness of Breath, (Reported) Lorazepam* (Lorazepam*), 1 MG ORAL Q6HR PRN for For Anxiety, (Reported) Polyethylene Glycol 3350* (Miralax*), 17 GM ORAL DAILY PRN for Constipation, ( Reported) Zolpidem Tartrate* (Zolpidem Tartrate*), 5 MG ORAL BEDTIME PRN for Insomnia, ( Reported) Miscellaneous Medications Unable to Obtain Medications (Unable To Obtain Meds), (Reported) Patient History History Provided By: Patient, Medical Record Healthcare decision maker self Resuscitation status Full Code Advanced Directive on File No Review of Systems ROS Narrative not available due to patient's medica condition Physical Exam General Appearance: morbidly obese - AA female in NAD, drowsy, but easily arousable Lines, tubes and drains: peripheral HEENT: normocephalic, atraumatic, anicteric, mucous membranes moist, other - bilateral blindness Respiratory/Chest: chest wall non-tender, no respiratory distress, no accessory muscle use, crackles/rales, other - BS clear with decreased air exchange Cardiovascular/Chest: normal rate, pacemaker/AICD - A pacing, pacemaler Left upper chest Abdomen: normal bowel sounds, soft - obese Extremities: non-tender, no calf tenderness, other - no leg edema, + 1 bilateral hand edema Skin Exam: warm/dry Neurologic: abnormal gait, responsive Musculoskeletal: atrophy Last 24 Hour Vital Signs Date Time Temp Pulse Resp B/P (MAP) Pulse Ox O2 Delivery O2 Flow Rate FiO2 01/25/20 16:33 178/87 01/25/20 16:00 97.7 63 20 178/87 (117) 100 01/25/20 15:22 Room Air 01/25/20 14:20 96.4 57 22 161/88 (112) 99 Laboratory Tests Test 01/25/20 18:00 White Blood Count Pending Red Blood Count Pending Hemoglobin Pending Hematocrit Pending Mean Corpuscular Volume Pending Mean Corpuscular Hemoglobin Pending Mean Corpuscular Hemoglobin Concent Pending Red Cell Distribution Width Pending Platelet Count Pending Mean Platelet Volume Pending Neutrophils (%) (Auto) Pending Lymphocytes (%) (Auto) Pending Monocytes (%) (Auto) Pending Eosinophils (%) (Auto) Pending Basophils (%) (Auto) Pending Sodium Level Pending Potassium Level Pending Chloride Level Pending Carbon Dioxide Level Pending Blood Urea Nitrogen Pending Creatinine Pending Estimat Glomerular Filtration Rate Pending Glucose Level Pending Calcium Level Pending Height (Feet): 5 Height (Inches): 9.00 Weight (Pounds): 262 Medications Current Medications Medications (Trade) Dose Ordered Sig/Josi Route PRN Reason Start Time Stop Time Status Last Admin Dose Admin Acetaminophen (Tylenol) 650 mg Q4H PRN ORAL Mild Pain/Temp > 100.5 01/25/20 15:30 02/24/20 15:29 Acetaminophen/ Hydrocodone Bitart ([place] 10/325) 1 tab Q6H PRN ORAL Pain Scale (6-10) 01/25/20 15:30 02/01/20 15:29 Amlodipine Besylate (Norvasc) 10 mg DAILY ORAL 01/26/20 09:00 02/25/20 08:59 Atorvastatin Calcium (Lipitor) 10 mg BEDTIME ORAL 01/25/20 21:00 02/24/20 20:59 Dextrose (Dextrose 50%) 25 ml Q30M PRN IV Hypoglycemia 01/25/20 15:30 02/24/20 15:29 Dextrose (Dextrose 50%) 50 ml Q30M PRN IV Hypoglycemia 01/25/20 15:30 02/24/20 15:29 01/25/20 16:27 Diphenhydramine HCl (Benadryl) 50 mg Q6H PRN ORAL Itching 01/25/20 15:30 02/24/20 15:29 Docusate Sodium (Colace) 100 mg TWICE A DAY ORAL 01/25/20 18:00 02/24/20 17:59 Gabapentin (Neurontin) 300 mg THREE TIMES A DAY ORAL 01/25/20 18:00 02/24/20 17:59 Hydralazine HCl (Apresoline) 50 mg Q6H PRN ORAL For High Blood Pressure 01/25/20 16:00 02/24/20 15:59 01/25/20 16:33 Hydralazine HCl (Apresoline) 100 mg Q8H ORAL 01/25/20 18:00 02/24/20 17:59 Insulin Aspart (NovoLOG) BEFORE MEALS AND HS SUBQ 01/25/20 16:30 02/24/20 16:29 Lorazepam (Ativan) 1 mg Q6H PRN ORAL For Anxiety 01/25/20 15:30 02/01/20 15:29 Pantoprazole (Protonix) 40 mg DAILY ORAL 01/26/20 09:00 02/25/20 08:59 Polyethylene Glycol (Miralax) 17 gm DAILYPRN PRN ORAL Constipation 01/25/20 15:30 02/24/20 15:29 Pyridoxine HCl (Vitamin B6) 50 mg DAILY ORAL 01/26/20 09:00 02/25/20 08:59 Sitagliptin Phosphate (Januvia) 25 mg DAILY ORAL 01/26/20 09:00 02/25/20 08:59 Zolpidem Tartrate (Ambien) 5 mg HSPRN PRN ORAL Insomnia 01/25/20 15:30 02/01/20 15:29 Assessment/Plan Assessment/Plan: ASSESSMENT HTN urgency initially -resolving acute encephalopathy due to hypoglycemia DM with recurrent hypoglycemia ESRD, on HD Electrolyte abnormalities Pacemaker Anemia of chronic disease Jehovah witness Bilateral blindness Morbid obesity PLAN OF CARE tele BP management with current regimen and optimize further treatment as needed last HD done Tuesday 01/23, due in am, no evidence of volume overload nephro consult per attending for arrangement of HD with correction of e/lyte abnormalities O2 HHN prn CXR stable Venous Duplex and when result negative, start SCD, hold heparin given tendency to become very anemic, and unable to transfuse fall precautions assist with meals supportive care bowel regimen GI prophylaxis case discussed and evaluated by supervising physician Chastity Velasco NP Jan 25, 2020 18:29
[2020-01-25 18:47] LABS: ANION GAP 11 mmol/L (5-15); BLOOD UREA NITROGEN 19 mg/dL (7-18); CALCIUM 9.4 MG/DL (8.5-10.1); CARBON DIOXIDE 33 MMOL/L (21-32); CHLORIDE 92 MMOL/L (98-107); CREATININE 3.9 MG/DL (0.55-1.30); POTASSIUM 3.9 MMOL/L (3.5-5.1); SODIUM 136 MMOL/L (136-145)
[2020-01-25] MEDS: HydrALAZINE 50mg tab ORAL SCH (18:53)
[2020-01-25] MEDS: HYDROcodone/Acetamin 10/325 tab ORAL PRN (18:55)
[2020-01-25] MEDS: Docusate 100mg cap ORAL SCH (18:56)
[2020-01-25 20:00] VITALS: BP 162/90
[2020-01-26] VITALS (7 sets, daily range): BP systolic 137–194; BP diastolic 69–92
[2020-01-26] MEDS: LORazepam 1mg tab ORAL PRN (00:09)
[2020-01-26] MEDS: HydrALAZINE 50mg tab ORAL SCH ×3 (02:00→17:27)
[2020-01-26] MEDS: NovoLOG Insulin Flexpen SUBQ SCH ×4 (06:23→21:00)
[2020-01-26] MEDS: HYDROcodone/Acetamin 10/325 tab ORAL PRN ×2 (06:35→21:29)
[2020-01-26] MEDS: Docusate 100mg cap ORAL SCH ×2 (08:47→17:26)
[2020-01-26] MEDS: Pyridoxine 50mg tab ORAL SCH (08:47)
[2020-01-26] MEDS ORDERED: sitaGLIPtin 25mg tab ORAL SCH (09:00)
[2020-01-26 09:25] LABS: BASOPHILS % (AUTO) 0.9 % (0.0-2.0); EOSINOPHILS % (AUTO) 6.1 % (0.0-3.0); HEMOGLOBIN 10.6 G/DL (12.0-16.0); MEAN CORPUSCULAR VOLUME 78 FL (80-99); MONOCYTES % (AUTO) 9.3 % (1.0-10.0); NEUTROPHILS % (AUTO) 57.7 % (45.0-75.0); PLATELET COUNT 286 K/UL (150-450); RED BLOOD COUNT 4.38 M/UL (4.20-5.40); RED CELL DISTRIBUTION WIDTH 16.4 % (11.6-14.8); WHITE BLOOD COUNT 6.4 K/UL (4.8-10.8)
[2020-01-26 09:39] LABS: ANION GAP 9 mmol/L (5-15); BLOOD UREA NITROGEN 24 mg/dL (7-18); CALCIUM 9.2 MG/DL (8.5-10.1); CARBON DIOXIDE 33 MMOL/L (21-32); CHLORIDE 91 MMOL/L (98-107); CREATININE 4.9 MG/DL (0.55-1.30); POTASSIUM 4.6 MMOL/L (3.5-5.1); SODIUM 133 MMOL/L (136-145)
[2020-01-26] MEDS: Heparin 5000 units/ml inj SUBQ SCH ×2 (10:20→21:10)
--- NOTE | 2020-01-26 11:32 | Consultation ---
Consult Note Consult Note Asked to evaluate at the request of Dr. Henning for dialysis management. Patient is known to me from her previous admission here at [facility]. Patient states that she is here because of low blood sugar. Patient is a poor historian. Patient was transferred from [facility]. 64 years old female with past medical history of end-stage renal disease, on hemodialysis, diabetes mellitus, hypertension, neuropathy, bilateral blindness, initially presented to [facility] due to altered mental status and hypoglycemia. Apparently patient was taking to her friend over the phone and told her to come and check on her, since she fell that she was going to hypoglycemic episode . When friend came she found her altered and called paramedics. Upon arrival of paramedics blood sugar was 53, patient received 1 ampule of D10 , and blood sugar improved to 92 with some improvement in mental status. Patient initially was brought to [place] ER. Blood pressure was significantly elevated 205/[address] scan of the head revealed no acute intracranial pathology. Laboratory work-up revealed no leukocytosis . Lactic acid 1.6. Evidence of anemia with hemoglobin 10.5 , hematocrit 34.3. Chest x-ray revealed cardiomegaly, left upper chest pacemaker, normal lung delcid. Chemistry demonstrated hyponatremia with sodium 115 , potassium 3.0 and evidence of renal failure. In 2 hours after giving bolus of normal saline Na significantly improved to 132 which is unlikely the right value , potassium was 3.5. After stabilization patient was transferred to [place] telemetry floor for further management. NO KNOWN ALLERGIES (Unverified Allergy, Unknown, 10/15/15) Patient examined. Current laboratory data reviewed. Old records noted. . Assessment/Plan End stage renal disease on dialysis. Has a right upper arm dialysis fistula as Acces . Getting dialysis Sunday. acute encephalopathy due to hypoglycemia h/o UTI (urinary tract infection) & Pyelonephritis morbid obesity Anemia / Jehova's witness CAD previous stent HTN- hypertensive urgency upon arrival to [facility]. s/p AVG DM 2 bilateral eye blindness h/o CHF Pacemaker Plan: Dialysis in am EPO, thiamin and b6 Phos binders diet to renal , medium CHO per consultants Bryan Hunter MD Jan 26, 2020 11:32
[2020-01-26] MEDS ORDERED: HydrALAZINE 50mg tab ORAL PRN (11:45)
[2020-01-26 12:08] LABS: ALANINE AMINOTRANSFERASE 26 U/L (12-78); ALKALINE PHOSPHATASE 334 U/L (46-116); ASPARTATE AMINO TRANSFERASE 26 U/L (15-37); BILIRUBIN,DIRECT 0.2 MG/DL (0.0-0.3); BILIRUBIN,TOTAL 0.6 MG/DL (0.2-1.0)
--- NOTE | 2020-01-26 12:19 | Pulmonology Progress Note ---
Assessment/Plan Problems: (1) Accelerated hypertension (2) Uncontrolled diabetes mellitus (3) Hypoglycemia (4) Intractable back pain (5) ESRD (end stage renal disease) on dialysis (6) Lumbar radiculopathy (7) Coronary artery disease (8) Morbid obesity (9) Blindness of both eyes Assessment/Plan mental status improving BP becoming more stable H"D by nephrology sliding scale diabetic diet f/u cardio and renal recommendations. Subjective ROS Limited/Unobtainable: No Constitutional: Reports: no symptoms HEENT: Repors: no symptoms Allergies: Coded Allergies: NO KNOWN ALLERGIES (Unverified Allergy, Unknown, 10/15/15) Objective Last 24 Hour Vital Signs Date Time Temp Pulse Resp B/P (MAP) Pulse Ox O2 Delivery O2 Flow Rate FiO2 01/26/20 09:20 161/69 (99) 01/26/20 09:20 161/69 01/26/20 09:00 Room Air 01/26/20 08:47 75 194/87 01/26/20 08:00 74 01/26/20 08:00 97.9 75 20 194/87 (122) 97 01/26/20 04:07 66 01/26/20 04:02 97.7 72 17 137/88 (104) 97 01/26/20 02:00 165/90 01/26/20 00:00 65 01/26/20 00:00 98.1 72 18 180/92 (121) 97 01/25/20 23:56 180/100 01/25/20 21:01 Room Air 01/25/20 20:00 97.3 71 19 162/90 (114) 97 01/25/20 20:00 68 01/25/20 18:53 178/87 01/25/20 16:33 178/87 01/25/20 16:00 97.7 63 20 178/87 (117) 100 01/25/20 15:50 72 01/25/20 15:22 Room Air 01/25/20 14:20 96.4 57 22 161/88 (112) 99 Intake and Output 01/25/20 01/26/20 19:00 07:00 Intake Total 236 ml 480 ml Balance 236 ml 480 ml Intake Oral 236 ml 480 ml # Voids 1 1 # Bowel Movements 3 General Appearance: other - obese HEENT: normocephalic, anicteric Respiratory/Chest: chest wall non-tender, lungs clear Breasts: no masses Cardiovascular: normal rate Abdomen: normal bowel sounds, soft, non tender Extremities: no cyanosis Skin: no rash Neurologic/Psychiatric: office communication professor II-XII grossly normal Laboratory Tests 01/25/20 18:00: White Blood Count 5.7, Red Blood Count 4.05L, Hemoglobin 9.6L, Hematocrit 30.9L , Mean Corpuscular Volume 76L, Mean Corpuscular Hemoglobin 23.7L, Mean Corpuscular Hemoglobin Concent 31.1L, Red Cell Distribution Width 19.0H, Platelet Count 252, Mean Platelet Volume 6.2L, Neutrophils (%) (Auto) 58.6, Lymphocytes (%) (Auto) 21.8, Monocytes (%) (Auto) 12.9H, Eosinophils (%) (Auto) 5.1H, Basophils (%) (Auto) 1.6, Sodium Level 136, Potassium Level 3.9, Chloride Level 92L, Carbon Dioxide Level 33H, Anion Gap 11, Blood Urea Nitrogen 19H, Creatinine 3.9H, Estimat Glomerular Filtration Rate 14.1, Glucose Level 138H, Calcium Level 9.4 01/26/20 09:05: White Blood Count 6.4, Red Blood Count 4.38, Hemoglobin 10.6L, Hematocrit 34.0L , Mean Corpuscular Volume 78L, Mean Corpuscular Hemoglobin 24.1L, Mean Corpuscular Hemoglobin Concent 31.1L, Red Cell Distribution Width 16.4H, Platelet Count 286, Mean Platelet Volume 5.4L, Neutrophils (%) (Auto) 57.7, Lymphocytes (%) (Auto) 26.0, Monocytes (%) (Auto) 9.3, Eosinophils (%) (Auto) 6.1H, Basophils (%) (Auto) 0.9, Sodium Level 133L, Potassium Level 4.6, Chloride Level 91L, Carbon Dioxide Level 33H, Anion Gap 9, Blood Urea Nitrogen 24H, Creatinine 4.9H, Estimat Glomerular Filtration Rate 10.9, Glucose Level 103 , Calcium Level 9.2, Hemoglobin A1c [Pending], Phosphorus Level [Pending], Magnesium Level [Pending], Iron Level [Pending], Unsaturated Iron Binding [ Pending], Ferritin [Pending], Total Bilirubin [Pending], Direct Bilirubin [ Pending], Aspartate Amino Transf (AST/SGOT) [Pending], Alanine Aminotransferase (ALT/SGPT) [Pending], Alkaline Phosphatase [Pending], Total Protein [Pending], Albumin [Pending], Triglycerides Level [Pending], Cholesterol Level [Pending], LDL Cholesterol [Pending], HDL Cholesterol [Pending], Cholesterol/HDL Ratio [ Pending], Vitamin B12 Level [Pending], Folate [Pending], Hepatitis B Surface Antigen [Pending] Current Medications Medications (Trade) Dose Ordered Sig/Josi Route PRN Reason Start Time Stop Time Status Last Admin Dose Admin Acetaminophen (Tylenol) 650 mg Q4H PRN ORAL Mild Pain/Temp > 100.5 01/25/20 15:30 02/24/20 15:29 Acetaminophen/ Hydrocodone Bitart ([place] 10/325) 1 tab Q6H PRN ORAL Pain Scale (6-10) 01/25/20 15:30 02/01/20 15:29 01/26/20 06:35 Amlodipine Besylate (Norvasc) 10 mg DAILY ORAL 01/26/20 09:00 02/25/20 08:59 01/26/20 08:47 Atorvastatin Calcium (Lipitor) 10 mg BEDTIME ORAL 01/25/20 21:00 02/24/20 20:59 01/25/20 21:01 Dextrose (Dextrose 50%) 25 ml Q30M PRN IV Hypoglycemia 01/25/20 15:30 02/24/20 15:29 Dextrose (Dextrose 50%) 50 ml Q30M PRN IV Hypoglycemia 01/25/20 15:30 02/24/20 15:29 01/25/20 16:27 Diphenhydramine HCl (Benadryl) 50 mg Q6H PRN ORAL Itching 01/25/20 15:30 02/24/20 15:29 Docusate Sodium (Colace) 100 mg TWICE A DAY ORAL 01/25/20 18:00 02/24/20 17:59 01/26/20 08:47 Epoetin Jose De Jesus (Procrit (for ESRD on dialysis)) 6,000 units SUN-SUN-SUN SUBQ 01/26/20 21:00 02/25/20 20:59 Gabapentin (Neurontin) 300 mg THREE TIMES A DAY ORAL 01/25/20 18:00 02/24/20 17:59 01/26/20 08:47 Heparin Sodium (Porcine) (Heparin 5000 units/ml) 5,000 units EVERY 12 HOURS SUBQ 01/26/20 09:45 02/25/20 09:44 Hydralazine HCl (Apresoline) 25 mg Q4H PRN ORAL For High Blood Pressure 01/26/20 11:45 02/24/20 15:59 Hydralazine HCl (Apresoline) 100 mg Q8H ORAL 01/25/20 18:00 02/24/20 17:59 01/26/20 09:20 Insulin Aspart (NovoLOG) BEFORE MEALS AND HS SUBQ 01/25/20 16:30 02/24/20 16:29 Lorazepam (Ativan) 1 mg Q6H PRN ORAL For Anxiety 01/25/20 15:30 02/01/20 15:29 01/26/20 00:09 Pantoprazole (Protonix) 40 mg DAILY ORAL 01/26/20 09:00 02/25/20 08:59 01/26/20 08:48 Polyethylene Glycol (Miralax) 17 gm DAILYPRN PRN ORAL Constipation 01/25/20 15:30 02/24/20 15:29 Pyridoxine HCl (Vitamin B6) 50 mg DAILY ORAL 01/26/20 09:00 02/25/20 08:59 01/26/20 08:47 Thiamine HCl (Vitamin B1) 100 mg DAILY ORAL 01/26/20 11:45 02/25/20 11:44 Zolpidem Tartrate (Ambien) 5 mg HSPRN PRN ORAL Insomnia 01/25/20 15:30 02/01/20 15:29 Meghana Murillo MD Jan 26, 2020 12:19
[2020-01-26] MEDS: Thiamine 100mg tab ORAL SCH (12:23)
[2020-01-26 12:27] LABS: CHOLESTEROL 112 MG/DL (< 200); FERRITIN 1366 NG/ML (8-388); HDL CHOLESTEROL 43 MG/DL (40-60); TRIGLYCERIDES 72 MG/DL (30-150)
[2020-01-26 12:36] LABS: ALBUMIN 3.6 G/DL (3.4-5.0)
[2020-01-26 12:54] LABS: % IRON SATURATION 44 % (15-50); IRON 49 ug/dL (50-175); TOTAL IRON BINDING CAPACITY 111 ug/dL (250-450)
--- NOTE | 2020-01-26 15:15 | History and Physical Report ---
DATE OF ADMISSION: 01/25/2020 DATE AND TIME SEEN: 01/26/2020 at 9 a.m. CONSULTANTS: 1. Meghana Murillo M.D. 2. Bryan Hunter M.D. 3. Wilfredo Reyna M.D. 4. Franko Rogel M.D. 5. Mendoza Santiago M.D. CHIEF COMPLAINT: Altered mental status, shortness of breath, hypoglycemia. BRIEF HISTORY: This is a 64-year-old female, who lives at home, apparently presented to [facility] with above-mentioned diagnosis. Subsequently, the patient's condition improved and the patient was transferred to [facility] and admitted to [facility]. Currently, calm in bed, slight general pain, no complaint. REVIEW OF SYSTEMS: No chest pain. Slight short of breath. No nausea, vomiting, or diarrhea. PAST MEDICAL HISTORY: Includes diabetes, CHF, ESRD hypertension, and obesity. PAST SURGICAL HISTORY: Shunt. ALLERGIES: Denies. MEDICATIONS: Include heparin, amlodipine, pantoprazole, atorvastatin, , gabapentin, hydralazine, insulin, diphenhydramine, lorazepam, zolpidem, and hydrocodone. SOCIAL HISTORY: No smoking. No alcohol. No intravenous drug abuse. FAMILY HISTORY: Noncontributory. PHYSICAL EXAMINATION: GENERAL: Slightly confused in bed, complains of general pain. Oriented x2, in no acute distress. VITAL SIGNS: Temperature is 97 degrees, pulse 75, respirations 20, and blood pressure 194/87. CARDIOVASCULAR: No murmur. LUNGS: Poor air exchange. ABDOMEN: Bowel sounds distant. EXTREMITIES: No cyanosis, clubbing, or edema. NEUROLOGIC: The patient is moving all extremities, slightly weak. LABORATORY AND DIAGNOSTIC DATA: Labs at this time show hemoglobin and hematocrit 10/34, platelets 286,000. Sodium 133, chloride 91, CO2 33, BUN and creatinine 24/4.9. Glucose 103. ASSESSMENT: 1. Altered mental status. 2. Shortness of breath. 3. Hypoglycemia. 4. ESRD. 5. Diabetes. 6. Anemia. 7. Congestive heart failure. 8. Hypertension. 9. Obesity. PLAN: 1. O2 and pulmonary treatment. 2. Blood pressure, blood sugar, and pain control. 3. Dietary followup. 4. Dialysis p.r.n. 5. PT and dietary evaluation. 6. CBC and BMP in the morning. 7. Resume home medications. Roderick Henning D.O. DR: JAYCOB JOB#: [id number] CC:
[2020-01-26] MEDS ORDERED: Epogen (for ESRD on dialysis) SUBQ SCH (21:00)
[2020-01-26] MEDS: Epoetin Alfa-EPBX(ESRD on dialysis)3000 units/ml vial SUBQ SCH (21:20)
[2020-01-27] VITALS: BP 125/85
[2020-01-27] MEDS: HydrALAZINE 50mg tab ORAL SCH ×3 (01:45→17:39)
[2020-01-27 04:00] VITALS: BP 170/86
[2020-01-27] MEDS: NovoLOG Insulin Flexpen SUBQ SCH ×4 (05:50→20:57)
[2020-01-27 08:00] VITALS: BP 156/79
[2020-01-27] MEDS: Heparin 5000 units/ml inj SUBQ SCH ×2 (09:00→20:53)
--- NOTE | 2020-01-27 09:20 | Consultation ---
History of Present Illness General Date patient seen: Jan 27, 2020 Time patient seen: 08:15 - am Chief Complaint: Generalized body pain Referring physician: Juvencio Reason for Consultation: Pain Management Present Illness HPI Patient is a known patient from previous admissions and has been admitted under the care of Dr. Henning due to hypoglycemia. She has continued body pain. Has been started on [place] 10/325mg which has allowed her to tolerate the pain. Allergies: Coded Allergies: NO KNOWN ALLERGIES (Unverified Allergy, Unknown, 10/15/15) Medication History Scheduled Amlodipine Besylate* (Amlodipine Besylate*), 10 MG ORAL DAILY, (Reported) Atorvastatin Calcium* (Lipitor*), 10 MG ORAL BEDTIME, (Reported) Docusate Sodium (Dok), 100 MG PO BID, (Reported) Epoetin Jose De Jesus (Epogen), 20,000 UNIT SUBQ mon/wed/fri, (Reported) Ertapenem (Invanz), 0.5 GM IM DAILY, (Reported) Ertapenem (Invanz), 1 GM IM DAILY, (Reported) Gabapentin* (Gabapentin*), 300 MG ORAL THREE TIMES A DAY, (Reported) Insulin Aspart (Novolog Flexpen), 1 UNITS SUBQ AC+HS, (Reported) Insulin Detemir (Levemir Flexpen), 8 SUBQ DAILY, (Reported) Pantoprazole* (Pantoprazole*), 40 MG ORAL DAILY, (Reported) Phenazopyridine Hcl* (Pyridium*), 100 MG ORAL THREE TIMES A DAY, (Reported) Pyridoxine Hcl* (Vitamin B-6*), 50 MG ORAL DAILY, (Reported) Sitagliptin* (Januvia*), 25 MG ORAL DAILY, (Reported) Thiamine Hcl* (Vitamin B-1*), 100 MG ORAL DAILY, (Reported) Scheduled PRN Acetaminophen (Tylenol), 650 MG ORAL Q4HR PRN for Mild Pain/Temp > 100.5, ( Reported) Clonidine Hcl* (Catapres*), 0.1 MG ORAL EVERY 4 HOURS PRN for For High Blood Pressure, (Reported) Diphenhydramine Hcl* (Benadryl*), 50 MG ORAL Q6H PRN for Itching, (Reported) Hydromorphone HCl/Pf (Hydromorphone 1 mg/ml Vial), 0.5 MG IJ Q6HR PRN for For Pain, (Reported) Ipratropium [place] 0.5MG/2.5ML (Ipratropium [place] 0.5MG/2.5ML), 0.5 MG HHN Q4H PRN for Shortness of Breath, (Reported) Lorazepam* (Lorazepam*), 1 MG ORAL Q6HR PRN for For Anxiety, (Reported) Polyethylene Glycol 3350* (Miralax*), 17 GM ORAL DAILY PRN for Constipation, ( Reported) Zolpidem Tartrate* (Zolpidem Tartrate*), 5 MG ORAL BEDTIME PRN for Insomnia, ( Reported) Miscellaneous Medications Unable to Obtain Medications (Unable To Obtain Meds), (Reported) Patient History Healthcare decision maker self Resuscitation status Full Code Advanced Directive on File No Past Medical/Surgical History Past Medical/Surgical History: (1) Lumbar radiculopathy (2) Acute respiratory failure (3) Coronary artery disease (4) Morbid obesity (5) Blindness of both eyes (6) Accelerated hypertension (7) ACS (acute coronary syndrome) (8) Acute bacterial bronchitis (9) Uncontrolled diabetes mellitus (10) Bleeding from dialysis shunt (11) Pancreatitis (12) Pyelonephritis (13) Iron deficiency (14) ESRD (end stage renal disease) on dialysis (15) UTI (urinary tract infection) Review of Systems Constitutional: Reports: no symptoms Eye: Reports: blurred vision ENT: Reports: no symptoms Respiratory: Reports: no symptoms Cardiovascular: Reports: no symptoms Gastrointestinal: Reports: no symptoms Genitourinary: Reports: no symptoms Musculoskeletal: Reports: back pain Skin: Reports: no symptoms Psychiatric: Reports: no symptoms Neurological: Reports: tingling, focal weakness Endocrine: Reports: no symptoms Hematologic/Lymphatic: Reports: no symptoms Physical Exam General Appearance: no apparent distress, alert HEENT: normocephalic, atraumatic Neck: non-tender, normal alignment Respiratory/Chest: decreased breath sounds Cardiovascular/Chest: normal rate, regular rhythm Abdomen: non tender, soft Extremities: non-tender Neurologic: alert, responsive Last 24 Hour Vital Signs Date Time Temp Pulse Resp B/P (MAP) Pulse Ox O2 Delivery O2 Flow Rate FiO2 01/27/20 08:00 97.9 97 20 156/79 (104) 96 01/27/20 04:51 170/86 01/27/20 04:00 98.3 73 18 170/86 (114) 96 01/27/20 04:00 75 01/27/20 01:45 152/77 01/27/20 00:00 97.6 74 18 125/85 (98) 96 01/27/20 00:00 90 01/26/20 21:59 98.0 01/26/20 21:00 Room Air 01/26/20 20:00 97.8 73 20 145/79 (101) 96 01/26/20 20:00 70 01/26/20 17:27 148/78 01/26/20 16:00 70 01/26/20 16:00 98.0 98 20 148/78 (101) 100 01/26/20 12:00 68 01/26/20 12:00 97.9 72 20 150/76 (100) 95 01/26/20 09:20 161/69 (99) 01/26/20 09:20 161/69 Intake and Output 01/26/20 01/27/20 19:00 07:00 Intake Total 574 ml 480 ml Balance 574 ml 480 ml Intake Oral 574 ml 480 ml # Voids 2 1 # Bowel Movements 1 Height (Feet): 5 Height (Inches): 9.00 Weight (Pounds): 262 Medications Current Medications Medications (Trade) Dose Ordered Sig/Josi Route PRN Reason Start Time Stop Time Status Last Admin Dose Admin Acetaminophen (Tylenol) 650 mg Q4H PRN ORAL Mild Pain/Temp > 100.5 01/25/20 15:30 02/24/20 15:29 Acetaminophen/ Hydrocodone Bitart ([place] 10/325) 1 tab Q6H PRN ORAL Pain Scale (6-10) 01/25/20 15:30 02/01/20 15:29 01/26/20 21:29 Amlodipine Besylate (Norvasc) 10 mg DAILY ORAL 01/26/20 09:00 02/25/20 08:59 01/26/20 08:47 Atorvastatin Calcium (Lipitor) 10 mg BEDTIME ORAL 01/25/20 21:00 02/24/20 20:59 01/26/20 21:09 Dextrose (Dextrose 50%) 25 ml Q30M PRN IV Hypoglycemia 01/25/20 15:30 02/24/20 15:29 Dextrose (Dextrose 50%) 50 ml Q30M PRN IV Hypoglycemia 01/25/20 15:30 02/24/20 15:29 01/25/20 16:27 Diphenhydramine HCl (Benadryl) 50 mg Q6H PRN ORAL Itching 01/25/20 15:30 02/24/20 15:29 01/26/20 22:02 Docusate Sodium (Colace) 100 mg TWICE A DAY ORAL 01/25/20 18:00 02/24/20 17:59 01/26/20 17:26 Epoetin Jose De Jesus (Epoetin Jose De Jesus(ESRD on dialysis)) 6,000 unit SUN-SUN-SUN SUBQ 01/26/20 21:00 02/25/20 20:59 01/26/20 21:20 Gabapentin (Neurontin) 300 mg THREE TIMES A DAY ORAL 01/25/20 18:00 02/24/20 17:59 01/26/20 17:27 Heparin Sodium (Porcine) (Heparin 5000 units/ml) 5,000 units EVERY 12 HOURS SUBQ 01/26/20 09:45 02/25/20 09:44 01/26/20 21:10 Hydralazine HCl (Apresoline) 25 mg Q4H PRN ORAL For High Blood Pressure 01/26/20 11:45 02/24/20 15:59 01/27/20 04:51 Hydralazine HCl (Apresoline) 100 mg Q8H ORAL 01/25/20 18:00 02/24/20 17:59 01/27/20 01:45 Insulin Aspart (NovoLOG) BEFORE MEALS AND HS SUBQ 01/25/20 16:30 02/24/20 16:29 Lorazepam (Ativan) 1 mg Q6H PRN ORAL For Anxiety 01/25/20 15:30 02/01/20 15:29 01/26/20 00:09 Pantoprazole (Protonix) 40 mg DAILY ORAL 01/26/20 09:00 02/25/20 08:59 01/26/20 08:48 Polyethylene Glycol (Miralax) 17 gm DAILYPRN PRN ORAL Constipation 01/25/20 15:30 02/24/20 15:29 Pyridoxine HCl (Vitamin B6) 50 mg DAILY ORAL 01/26/20 09:00 02/25/20 08:59 01/26/20 08:47 Thiamine HCl (Vitamin B1) 100 mg DAILY ORAL 01/26/20 11:45 02/25/20 11:44 01/26/20 12:23 Zolpidem Tartrate (Ambien) 5 mg HSPRN PRN ORAL Insomnia 01/25/20 15:30 02/01/20 15:29 Assessment/Plan Assessment/Plan: (1) Morbid Obesity (2) Lumbar DDD (3) Lumbar Spondylosis (4) Lumbar Radiculopathy (5) Peripheral Neuropathy Patient to be continued on [place] D/w Dr. Santiago and he concurred. Johnnie Isidro Jan 27, 2020 09:20
[2020-01-27] MEDS: Pyridoxine 50mg tab ORAL SCH (09:47)
[2020-01-27] MEDS: Docusate 100mg cap ORAL SCH ×2 (09:47→17:40)
[2020-01-27] MEDS: Thiamine 100mg tab ORAL SCH (09:47)
[2020-01-27] MEDS: HYDROcodone/Acetamin 10/325 tab ORAL PRN ×2 (09:55→18:17)
[2020-01-27 12:00] VITALS: BP 147/70
--- NOTE | 2020-01-27 12:04 | Pulmonology Progress Note ---
Assessment/Plan Problems: (1) Accelerated hypertension (2) Uncontrolled diabetes mellitus (3) Hypoglycemia (4) Intractable back pain (5) ESRD (end stage renal disease) on dialysis (6) Lumbar radiculopathy (7) Coronary artery disease (8) Morbid obesity (9) Blindness of both eyes Assessment/Plan no new complains doing better Bs better mental status improving BP becoming more stable H"D by nephrology sliding scale diabetic diet f/u cardio and renal recommendations. Subjective ROS Limited/Unobtainable: No Constitutional: Reports: no symptoms HEENT: Repors: no symptoms Respiratory: Reports: no symptoms Allergies: Coded Allergies: NO KNOWN ALLERGIES (Unverified Allergy, Unknown, 10/15/15) Objective Last 24 Hour Vital Signs Date Time Temp Pulse Resp B/P (MAP) Pulse Ox O2 Delivery O2 Flow Rate FiO2 01/27/20 09:48 156/79 01/27/20 09:00 97 156/79 01/27/20 08:00 97.9 97 20 156/79 (104) 96 01/27/20 08:00 74 01/27/20 04:51 170/86 01/27/20 04:00 98.3 73 18 170/86 (114) 96 01/27/20 04:00 75 01/27/20 01:45 152/77 01/27/20 00:00 97.6 74 18 125/85 (98) 96 01/27/20 00:00 90 01/26/20 21:59 98.0 01/26/20 21:00 Room Air 01/26/20 20:00 97.8 73 20 145/79 (101) 96 01/26/20 20:00 70 01/26/20 17:27 148/78 01/26/20 16:00 70 01/26/20 16:00 98.0 98 20 148/78 (101) 100 Intake and Output 01/26/20 01/27/20 19:00 07:00 Intake Total 574 ml 480 ml Balance 574 ml 480 ml Intake Oral 574 ml 480 ml # Voids 2 1 # Bowel Movements 1 General Appearance: WD/WN HEENT: normocephalic, atraumatic Respiratory/Chest: chest wall non-tender, lungs clear Breasts: no masses Cardiovascular: normal peripheral pulses Abdomen: normal bowel sounds, soft, non tender Extremities: no cyanosis Skin: no rash Neurologic/Psychiatric: bite block maker II-XII grossly normal Current Medications Medications (Trade) Dose Ordered Sig/Josi Route PRN Reason Start Time Stop Time Status Last Admin Dose Admin Acetaminophen (Tylenol) 650 mg Q4H PRN ORAL Mild Pain/Temp > 100.5 01/25/20 15:30 02/24/20 15:29 Acetaminophen/ Hydrocodone Bitart ([place] 10/325) 1 tab Q6H PRN ORAL Pain Scale (6-10) 01/25/20 15:30 02/01/20 15:29 01/27/20 09:55 Amlodipine Besylate (Norvasc) 10 mg DAILY ORAL 01/26/20 09:00 02/25/20 08:59 01/26/20 08:47 Atorvastatin Calcium (Lipitor) 10 mg BEDTIME ORAL 01/25/20 21:00 02/24/20 20:59 01/26/20 21:09 Dextrose (Dextrose 50%) 25 ml Q30M PRN IV Hypoglycemia 01/25/20 15:30 02/24/20 15:29 Dextrose (Dextrose 50%) 50 ml Q30M PRN IV Hypoglycemia 01/25/20 15:30 02/24/20 15:29 01/25/20 16:27 Diphenhydramine HCl (Benadryl) 50 mg Q6H PRN ORAL Itching 01/25/20 15:30 02/24/20 15:29 01/26/20 22:02 Docusate Sodium (Colace) 100 mg TWICE A DAY ORAL 01/25/20 18:00 02/24/20 17:59 01/27/20 09:47 Epoetin Jose De Jesus (Epoetin Jose De Jesus(ESRD on dialysis)) 6,000 unit SUN-SUN-SUN SUBQ 01/26/20 21:00 02/25/20 20:59 01/26/20 21:20 Gabapentin (Neurontin) 300 mg THREE TIMES A DAY ORAL 01/25/20 18:00 02/24/20 17:59 01/27/20 09:47 Heparin Sodium (Porcine) (Heparin 5000 units/ml) 5,000 units EVERY 12 HOURS SUBQ 01/26/20 09:45 02/25/20 09:44 01/26/20 21:10 Hydralazine HCl (Apresoline) 25 mg Q4H PRN ORAL For High Blood Pressure 01/26/20 11:45 02/24/20 15:59 01/27/20 04:51 Hydralazine HCl (Apresoline) 100 mg Q8H ORAL 01/25/20 18:00 02/24/20 17:59 01/27/20 01:45 Insulin Aspart (NovoLOG) BEFORE MEALS AND HS SUBQ 01/25/20 16:30 02/24/20 16:29 Lorazepam (Ativan) 1 mg Q6H PRN ORAL For Anxiety 01/25/20 15:30 02/01/20 15:29 01/26/20 00:09 Pantoprazole (Protonix) 40 mg DAILY ORAL 01/26/20 09:00 02/25/20 08:59 01/27/20 09:47 Polyethylene Glycol (Miralax) 17 gm DAILYPRN PRN ORAL Constipation 01/25/20 15:30 02/24/20 15:29 Pyridoxine HCl (Vitamin B6) 50 mg DAILY ORAL 01/26/20 09:00 02/25/20 08:59 01/27/20 09:47 Thiamine HCl (Vitamin B1) 100 mg DAILY ORAL 01/26/20 11:45 02/25/20 11:44 01/27/20 09:47 Zolpidem Tartrate (Ambien) 5 mg HSPRN PRN ORAL Insomnia 01/25/20 15:30 02/01/20 15:29 Meghana Murillo MD Jan 27, 2020 12:04
--- NOTE | 2020-01-27 13:45 | General Progress Note ---
Assessment/Plan Problem List: (1) AMS (altered mental status) ICD Codes: R41.82 - Altered mental status, unspecified SNOMED: 502510757 (2) Diabetes ICD Codes: E11.9 - Type 2 diabetes mellitus without complications SNOMED: 43680405 (3) HTN (hypertension) ICD Codes: I10 - Essential (primary) hypertension SNOMED: 13438933 (4) Anemia ICD Codes: D64.9 - Anemia, unspecified SNOMED: 088450813 (5) Morbid obesity ICD Codes: E66.01 - Morbid (severe) obesity due to excess calories SNOMED: 537489546, 25018196259392 (6) Blindness of both eyes ICD Codes: H54.0 - Blindness SNOMED: 657238751 (7) Intractable back pain ICD Codes: M54.9 - Dorsalgia, unspecified SNOMED: 423208834 (8) ESRD (end stage renal disease) on dialysis ICD Codes: N18.6 - End stage renal disease; Z99.2 - Dependence on renal dialysis SNOMED: 916475291 Status: unchanged Assessment/Plan: o2p ulm tx pt diet dialysis cbc bmp am Subjective Constitutional: Reports: weakness Respiratory: Reports: shortness of breath Allergies: Coded Allergies: NO KNOWN ALLERGIES (Unverified Allergy, Unknown, 10/15/15) All Systems: reviewed and negative except above Subjective sleepy calm Objective Last 24 Hour Vital Signs Date Time Temp Pulse Resp B/P (MAP) Pulse Ox O2 Delivery O2 Flow Rate FiO2 01/27/20 12:00 97.7 72 20 147/70 (95) 97 01/27/20 12:00 70 01/27/20 09:48 156/79 01/27/20 09:00 Room Air 01/27/20 09:00 97 156/79 01/27/20 08:00 97.9 97 20 156/79 (104) 96 01/27/20 08:00 74 01/27/20 04:51 170/86 01/27/20 04:00 98.3 73 18 170/86 (114) 96 01/27/20 04:00 75 01/27/20 01:45 152/77 01/27/20 00:00 97.6 74 18 125/85 (98) 96 01/27/20 00:00 90 01/26/20 21:59 98.0 01/26/20 21:00 Room Air 01/26/20 20:00 97.8 73 20 145/79 (101) 96 01/26/20 20:00 70 01/26/20 17:27 148/78 01/26/20 16:00 70 01/26/20 16:00 98.0 98 20 148/78 (101) 100 Intake and Output 01/26/20 01/27/20 19:00 07:00 Intake Total 574 ml 480 ml Balance 574 ml 480 ml Intake Oral 574 ml 480 ml # Voids 2 1 # Bowel Movements 1 Height (Feet): 5 Height (Inches): 9.00 Weight (Pounds): 262 General Appearance: lethargic EENT: normal ENT inspection Neck: normal alignment Cardiovascular: normal peripheral pulses, normal rate, regular rhythm Respiratory/Chest: chest wall non-tender, decreased breath sounds Abdomen: normal bowel sounds, non tender, soft Extremities: normal inspection Edema: no edema noted Arm (L), no edema noted Arm (R), no edema noted Leg (L), no edema noted Leg (R), no edema noted Pedal (L), no edema noted Pedal (R), no edema noted Generalized Neurologic: motor weakness Skin: normal pigmentation, warm/dry Roderick Henning DO Jan 27, 2020 13:45
--- NOTE | 2020-01-27 15:07 | Cardiology Progress Note ---
Assessment/Plan Assessment/Plan [id number] Objective Last 24 Hour Vital Signs Date Time Temp Pulse Resp B/P (MAP) Pulse Ox O2 Delivery O2 Flow Rate FiO2 01/27/20 12:00 97.7 72 20 147/70 (95) 97 01/27/20 12:00 70 01/27/20 09:48 156/79 01/27/20 09:00 Room Air 01/27/20 09:00 97 156/79 01/27/20 08:00 97.9 97 20 156/79 (104) 96 01/27/20 08:00 74 01/27/20 04:51 170/86 01/27/20 04:00 98.3 73 18 170/86 (114) 96 01/27/20 04:00 75 01/27/20 01:45 152/77 01/27/20 00:00 97.6 74 18 125/85 (98) 96 01/27/20 00:00 90 01/26/20 21:59 98.0 01/26/20 21:00 Room Air 01/26/20 20:00 97.8 73 20 145/79 (101) 96 01/26/20 20:00 70 01/26/20 17:27 148/78 01/26/20 16:00 70 01/26/20 16:00 98.0 98 20 148/78 (101) 100 Intake and Output 01/26/20 01/27/20 19:00 07:00 Intake Total 574 ml 480 ml Balance 574 ml 480 ml Intake Oral 574 ml 480 ml # Voids 2 1 # Bowel Movements 1 Wilfredo Reyna MD Jan 27, 2020 15:07
--- NOTE | 2020-01-27 15:11 | Nephrology Progress Note ---
Assessment/Plan Problem List: (1) ESRD (end stage renal disease) on dialysis (2) Hypoglycemia (3) Diabetes (4) Anemia (5) Patient is Anglican (6) Pacemaker (7) Obese (8) HTN (hypertension) Assessment End stage renal disease on dialysis. Has a right upper arm dialysis fistula as Acces . Getting dialysis Sunday. acute encephalopathy due to hypoglycemia h/o UTI (urinary tract infection) & Pyelonephritis morbid obesity Anemia / Jehova's witness CAD previous stent HTN- hypertensive urgency upon [facility]. s/p AVG DM 2 bilateral eye blindness h/o CHF Pacemaker Plan Dialysis today EPO, thiamin and b6 Phos binders diet to renal , medium CHO per consultants Subjective ROS Limited/Unobtainable: No Objective Objective Last 24 Hour Vital Signs Date Time Temp Pulse Resp B/P (MAP) Pulse Ox O2 Delivery O2 Flow Rate FiO2 01/27/20 12:00 97.7 72 20 147/70 (95) 97 01/27/20 12:00 70 01/27/20 09:48 156/79 01/27/20 09:00 Room Air 01/27/20 09:00 97 156/79 01/27/20 08:00 97.9 97 20 156/79 (104) 96 01/27/20 08:00 74 01/27/20 04:51 170/86 01/27/20 04:00 98.3 73 18 170/86 (114) 96 01/27/20 04:00 75 01/27/20 01:45 152/77 01/27/20 00:00 97.6 74 18 125/85 (98) 96 01/27/20 00:00 90 01/26/20 21:59 98.0 01/26/20 21:00 Room Air 01/26/20 20:00 97.8 73 20 145/79 (101) 96 01/26/20 20:00 70 01/26/20 17:27 148/78 01/26/20 16:00 70 01/26/20 16:00 98.0 98 20 148/78 (101) 100 Intake and Output 01/26/20 01/27/20 19:00 07:00 Intake Total 574 ml 480 ml Balance 574 ml 480 ml Intake Oral 574 ml 480 ml # Voids 2 1 # Bowel Movements 1 Height (Feet): 5 Height (Inches): 9.00 Weight (Pounds): 262 General Appearance: no apparent distress Cardiovascular: tachycardia Respiratory/Chest: decreased breath sounds Abdomen: soft, other - obese Objective no change Bryan Hunter MD Jan 27, 2020 15:11
[2020-01-27 16:00] VITALS: BP 153/73
[2020-01-27 20:00] VITALS: BP 161/92
--- NOTE | 2020-01-27 21:46 | Consultation ---
DATE OF CONSULTATION: 01/27/2020 ENDOCRINOLOGY CONSULTATION CONSULTING PHYSICIAN: Franko Rogel M.D. REFERRING PHYSICIAN: Roderick Henning D.O. REASON FOR CONSULTATION: Diabetes and hypoglycemia. HISTORY OF PRESENT ILLNESS: The patient is a 64-year-old female with past medical history of diabetes, end-stage renal disease on hemodialysis, hypertension, neuropathy, and bilateral blindness, presented to the [facility] due to altered mental status and hypoglycemia. This has been recurrent. When paramedics arrived, blood sugar was 53, was given an amp of D50 and improved to 92. She was taken to [place] [facility]. CT of the head revealed no acute intracranial pathology. Lactic acid was 1.6, hemoglobin 10.5, hematocrit of 34.3. Chest x-ray revealed cardiomegaly. Chemistry demonstrated hyponatremia with sodium of 115 and potassium of 3. Sodium was corrected, potassium improved, and the patient was transferred to [facility] for observation and treatment. During this stay, the patient had not been given her scheduled diabetic regimen. Glucose has been monitored and found to be stable. The patient normally takes Januvia 25 mg daily as well as Levemir 8 units daily. PAST MEDICAL HISTORY: 1. Diabetes. 2. CHF. 3. End-stage renal disease. 4. Hypertension. 5. Obesity. PAST SURGICAL HISTORY: Dialysis access placement. ALLERGIES TO MEDICATIONS: None. MEDICATIONS: Reviewed and reconciled. SOCIAL HISTORY: No smoking, alcohol, or drug use. FAMILY HISTORY: Noncontributory. REVIEW OF SYSTEMS: A 12-point review of systems was performed and pertinent positives and negatives are mentioned in the history of present illness. PHYSICAL EXAMINATION: GENERAL: The patient is awake. VITAL SIGNS: Blood pressure 170/86, heart rate 75, temperature 98.2, and respiratory rate of 18. HEAD AND NECK: No JVD. HEART: Regular. LUNGS: Clear. ABDOMEN: Positive bowel sounds. EXTREMITIES: Positive for edema. LABORATORY DATA: WBC 6, hemoglobin 10, hematocrit 34, and platelets of 286,000. Sodium 133, potassium 4.6, chloride 91, bicarb 22, BUN 24, creatinine 4.9. A1c of 5.8. DIAGNOSES: 1. Hypoglycemia secondary to Levemir. 2. End-stage renal disease, on dialysis. 3. CHF. 4. Obesity. PLAN: 1. We will hold off on Levemir and Januvia. 2. Blood glucose monitoring before meals and at bedtime with coverage with low-dose NovoLog. 3. Further adjustment according to blood glucose values. 4. Hypoglycemia protocol has been ordered. 5. I will follow the patient closely during hospital stay. Thank you, Dr. Henning, for the courtesy of this consultation. Franko Rogel M.D. DR: NATHALIA/JEN JOB#: [id number] CC: JEAN
[2020-01-28] VITALS: BP 182/83
[2020-01-28] MEDS: HydrALAZINE 50mg tab ORAL SCH ×3 (01:13→17:31)
[2020-01-28 01:42] LABS: BASOPHILS % (AUTO) 1.2 % (0.0-2.0); EOSINOPHILS % (AUTO) 5.4 % (0.0-3.0); HEMATOCRIT 30.9 % (37.0-47.0); HEMOGLOBIN 9.8 G/DL (12.0-16.0); LYMPHOCYTES % (AUTO) 30.4 % (20.0-45.0); MEAN CORPUSCULAR VOLUME 77 FL (80-99); MONOCYTES % (AUTO) 10.4 % (1.0-10.0); NEUTROPHILS % (AUTO) 52.7 % (45.0-75.0); PLATELET COUNT 242 K/UL (150-450); RED BLOOD COUNT 4.01 M/UL (4.20-5.40); RED CELL DISTRIBUTION WIDTH 16.3 % (11.6-14.8); WHITE BLOOD COUNT 7.3 K/UL (4.8-10.8)
[2020-01-28 01:44] LABS: ANION GAP 9 mmol/L (5-15); BLOOD UREA NITROGEN 46 mg/dL (7-18); CALCIUM 8.7 MG/DL (8.5-10.1); CARBON DIOXIDE 33 MMOL/L (21-32); CHLORIDE 90 MMOL/L (98-107); POTASSIUM 5.1 MMOL/L (3.5-5.1); SODIUM 132 MMOL/L (136-145)
--- NOTE | 2020-01-28 01:45 | Consultation ---
DATE OF CONSULTATION: 01/27/2020 CARDIOLOGY CONSULTATION CONSULTING PHYSICIAN: Wilfredo Reyna M.D. REFERRING PHYSICIAN: Roderick Henning D.O. REASON FOR REFERRAL: History of coronary artery disease, admitted with altered mentation. HISTORY OF PRESENT ILLNESS: This is an elderly female, who apparently was seen at [facility] earlier and presented there because of her history of altered mentation, initially with possible hypoglycemia and received some D10. Blood sugar came up to about 92, but her mentation did not improve significantly. The patient's laboratories, however, subsequently showed sodium of 115. The patient was transferred to [facility] for transfusion and at the present time being seen, she is actually awake, alert, responsive, and communicative. She actually denies any chest pain or shortness of breath. There is no PND. There is no orthopnea, although she uses two pillows. She has occasional dizziness on standing. No palpitation. PAST MEDICAL HISTORY: According to the chart, she has history of diabetes mellitus, hyperlipidemia, obesity, depression, and alcoholism in remission. The chart indicates the patient has a history of cocaine use although she herself denies that, peripheral neuropathy secondary to diabetes, essential hypertension, and end-stage renal disease secondary to diabetes. She does have a history of pacemaker implantation and she is followed by [facility]. She also has history of coronary artery disease. She underwent apparently two stents back in 2009, although according to herself not sure when and what the circumstances on that one were. She does have a history of anemia, bilateral blindness, and apparently had a myocardial perfusion imaging at [facility] in [place] in September 2018, reportedly normal in review of the older charts and previous ejection fraction of 55% previously. ALLERGIES: She is not allergic to any medications. MEDICATIONS: Her home medications as noted in the [place] notes include metoprolol 50 mg of unknown degree, amlodipine 10 mg, isosorbide, hydralazine, and lisinopril as well as Lasix, dosage of which are unknown. SOCIAL HISTORY: She denies using drugs. She denies smoking or drinking alcoholic beverages. REVIEW OF SYSTEMS: GASTROINTESTINAL: She has been constipated. GENITOURINARY: She has discomfort on urination. PULMONARY: Positive for coughing. CONSTITUTIONAL: Negative. NEUROLOGIC: As mentioned in HPI with alteration in mentation. PHYSICAL EXAMINATION: GENERAL: Shows to be morbidly obese elderly female, in no respiratory distress. NECK: Supple. No jugular venous distention. LUNGS: Clear to auscultation and percussion. CARDIAC: S1 is normal. S2 is normal. Regular rate and rhythm. Systolic ejection murmur is noted. ABDOMEN: Soft, nontender. Positive bowel sounds. EXTREMITIES: There is no clubbing or cyanosis and there is no edema. NEUROLOGICAL: She is awake and alert. She is actually oriented to self, day of the week, hospital location, and the hospital itself. LABORATORY VALUES: An EKG is not available for review. White count was 6.4 with hemoglobin of 10.6 and platelet count of 286,000. Sodium initially 115 reportedly here; it has been up to 136 and 133. Potassium 4.3, chloride 91, bicarb 33, BUN of 24, creatinine of 4.9, and glucose of 103. A1c of 5.8. Iron of 49, percent saturation of 44, ferritin of 1566. AST and ALT within normal limits. Alkaline phosphatase has been increased since 2018, at the present time 334, down from 495 in October. Cholesterol of 112, LDL of 41, HDL of 46, and B12 of 1485. Folic acid 27.5. Magnesium 2.3. Phosphorus 4.6. Urinalysis not available from here. Review of the [place] data, there is a report available here in the chart indicating that blood cultures positive for coagulase-negative Staph. A head CT performed at [place] shows no acute intracranial pathology, suggestion of a subcentimeter hypoattenuation in the right basal ganglia, which may represent old lacunar infarction. Chest x-ray report reviewed and unremarkable, borderline cardiomegaly, left upper chest with pacemaker in place, and normal lung delcid. An EKG showed sinus rhythm apparently according to [place] interpretation with first-degree AV block and prolonged QTc of 542, one PVC was noted, "no ischemia or arrhythmia apparently noted." Telemetry shows sinus rhythm and no ST or T-wave abnormalities. ASSESSMENT AND PLAN: 1. Altered mentation, seemed to improve. 2. History of coronary artery disease, status post coronary artery stenting x2 in 2009. 3. Diabetes mellitus. 4. End-stage renal disease, on hemodialysis. 5. Morbid obesity. 6. Bacteremia. 7. Bleeding from dialysis site. 8. Possible urinary tract infection. Dr. Henning, this patient was seen in cardiac consultation. The patient's blood pressure has been fluctuating between 140/70 to 170/86. Heart rate appears to be stable. Lung exam is unremarkable. Nothing to suggest an acute coronary syndrome on evaluation clinically and her cardiac enzymes have not been checked during this hospitalization here and on review, at [place], I do not see any troponins that I can identify either. Nevertheless, if she does not complain of any chest pain or significant shortness of breath, I will repeat EKG as well as a set of cardiac enzymes and she did have a venous duplex study of the lower extremities here that showed no evidence of acute active deep venous thrombosis from a cardiac point of view except for blood pressure, which may need some adjustment of medications if she remains stable. She should be back on aspirin. She should be on statin. Probably in light of the diabetes and end-organ damage, we would probably opt for at least 40 mg of statin at the present time. The last time she was admitted here, she was on amlodipine 10 mg, Lipitor 10 mg, Coreg 3.125 mg twice daily, and she was on hydralazine 50 mg q.8 hours, losartan 50 mg q.12 hours, Norvasc 10 mg a day; those will be restarted. Dialysis per Dr. Hunter. Wilfredo Reyna M.D. DR: Marisol JOB#: [id number] CC:
[2020-01-28 01:49] LABS: CREATINE KINASE 60 U/L (26-308)
[2020-01-28] MEDS: LORazepam 1mg tab ORAL PRN (01:52)
[2020-01-28 04:00] VITALS: BP 133/83
[2020-01-28] MEDS: NovoLOG Insulin Flexpen SUBQ SCH ×4 (05:47→21:00)
--- NOTE | 2020-01-28 06:25 | General Progress Note ---
Assessment/Plan Problem List: (1) Blindness of both eyes ICD Codes: H54.0 - Blindness SNOMED: 318218076 (2) Accelerated hypertension ICD Codes: I10 - Essential (primary) hypertension SNOMED: 24364184 (3) Uncontrolled diabetes mellitus ICD Codes: E11.9 - Type 2 diabetes mellitus without complications SNOMED: 797169084 (4) Hypoglycemia ICD Codes: E16.2 - Hypoglycemia, unspecified SNOMED: 272286556 Status: unchanged Assessment/Plan: continue to hold scheduled diabetic medications hypoglycemia protocol in order low dose Novolog as needed Subjective Allergies: Coded Allergies: NO KNOWN ALLERGIES (Unverified Allergy, Unknown, 10/15/15) All Systems: reviewed and negative except above Subjective events noted last hypoglycemia yesterday mid day Item Value Date Time Bedside Blood Glucose 137 mg/dl H 01/28/20 0547 Bedside Blood Glucose 99 mg/dl 01/27/20 2100 Bedside Blood Glucose 125 mg/dl H 01/27/20 1630 Bedside Blood Glucose 59 mg/dl L 01/27/20 1130 Bedside Blood Glucose 96 mg/dl 01/27/20 0630 Objective Last 24 Hour Vital Signs Date Time Temp Pulse Resp B/P (MAP) Pulse Ox O2 Delivery O2 Flow Rate FiO2 01/28/20 04:00 70 01/28/20 04:00 97.9 71 19 133/83 (100) 95 01/28/20 01:13 182/83 01/28/20 00:00 69 01/28/20 00:00 97.9 68 20 182/83 (116) 99 01/27/20 21:00 Room Air 01/27/20 20:00 97.9 75 19 161/92 (115) 95 01/27/20 20:00 73 01/27/20 17:39 153/73 01/27/20 16:00 69 01/27/20 16:00 97.8 69 20 153/73 (99) 98 01/27/20 12:00 97.7 72 20 147/70 (95) 97 01/27/20 12:00 70 01/27/20 09:48 156/79 01/27/20 09:00 Room Air 01/27/20 09:00 97 156/79 01/27/20 08:00 97.9 97 20 156/79 (104) 96 01/27/20 08:00 74 Intake and Output 01/27/20 01/28/20 19:00 07:00 Intake Total 400 ml Balance 400 ml Intake Oral 400 ml Laboratory Tests 01/28/20 00:45: White Blood Count 7.3, Red Blood Count 4.01L, Hemoglobin 9.8L, Hematocrit 30.9L , Mean Corpuscular Volume 77L, Mean Corpuscular Hemoglobin 24.4L, Mean Corpuscular Hemoglobin Concent 31.6L, Red Cell Distribution Width 16.3H, Platelet Count 242, Mean Platelet Volume 5.4L, Neutrophils (%) (Auto) 52.7, Lymphocytes (%) (Auto) 30.4, Monocytes (%) (Auto) 10.4H, Eosinophils (%) (Auto) 5.4H, Basophils (%) (Auto) 1.2, Sodium Level 132L, Potassium Level 5.1, Chloride Level 90L, Carbon Dioxide Level 33H, Anion Gap 9, Blood Urea Nitrogen 46H, Creatinine 7.0H, Estimat Glomerular Filtration Rate 7.2, Glucose Level 101 , Calcium Level 8.7, Total Creatine Kinase 60, Troponin I 0.029 Height (Feet): 5 Height (Inches): 9.00 Weight (Pounds): 268 General Appearance: no apparent distress Neck: normal alignment Cardiovascular: normal rate Respiratory/Chest: decreased breath sounds Abdomen: normal bowel sounds Objective Current Medications Medications (Trade) Dose Ordered Sig/Josi Route PRN Reason Start Time Stop Time Status Last Admin Dose Admin Acetaminophen (Tylenol) 650 mg Q4H PRN ORAL Mild Pain/Temp > 100.5 01/25/20 15:30 02/24/20 15:29 Acetaminophen/ Hydrocodone Bitart ([place] 10/325) 1 tab Q6H PRN ORAL Pain Scale (6-10) 01/25/20 15:30 02/01/20 15:29 01/27/20 18:17 Amlodipine Besylate (Norvasc) 10 mg DAILY ORAL 01/26/20 09:00 02/25/20 08:59 01/26/20 08:47 Atorvastatin Calcium (Lipitor) 10 mg BEDTIME ORAL 01/25/20 21:00 02/24/20 20:59 01/27/20 20:57 Dextrose (Dextrose 50%) 25 ml Q30M PRN IV Hypoglycemia 01/25/20 15:30 02/24/20 15:29 Dextrose (Dextrose 50%) 50 ml Q30M PRN IV Hypoglycemia 01/25/20 15:30 02/24/20 15:29 01/25/20 16:27 Diphenhydramine HCl (Benadryl) 50 mg Q6H PRN ORAL Itching 01/25/20 15:30 02/24/20 15:29 01/28/20 04:08 Docusate Sodium (Colace) 100 mg TWICE A DAY ORAL 01/25/20 18:00 02/24/20 17:59 01/27/20 17:40 Epoetin Jose De Jesus (Epoetin Jose De Jesus(ESRD on dialysis)) 6,000 unit SUN-SUN-SUN SUBQ 01/26/20 21:00 02/25/20 20:59 01/26/20 21:20 Gabapentin (Neurontin) 300 mg THREE TIMES A DAY ORAL 01/25/20 18:00 02/24/20 17:59 01/27/20 17:40 Heparin Sodium (Porcine) (Heparin 5000 units/ml) 5,000 units EVERY 12 HOURS SUBQ 01/26/20 09:45 02/25/20 09:44 01/26/20 21:10 Hydralazine HCl (Apresoline) 25 mg Q4H PRN ORAL For High Blood Pressure 01/26/20 11:45 02/24/20 15:59 01/27/20 04:51 Hydralazine HCl (Apresoline) 100 mg Q8H ORAL 01/25/20 18:00 02/24/20 17:59 01/27/20 01:45 Insulin Aspart (NovoLOG) BEFORE MEALS AND HS SUBQ 01/25/20 16:30 02/24/20 16:29 Lorazepam (Ativan) 1 mg Q6H PRN ORAL For Anxiety 01/25/20 15:30 02/01/20 15:29 01/28/20 01:52 Pantoprazole (Protonix) 40 mg DAILY ORAL 01/26/20 09:00 02/25/20 08:59 01/27/20 09:47 Polyethylene Glycol (Miralax) 17 gm DAILYPRN PRN ORAL Constipation 01/25/20 15:30 02/24/20 15:29 Pyridoxine HCl (Vitamin B6) 50 mg DAILY ORAL 01/26/20 09:00 02/25/20 08:59 01/27/20 09:47 Thiamine HCl (Vitamin B1) 100 mg DAILY ORAL 01/26/20 11:45 02/25/20 11:44 01/27/20 09:47 Zolpidem Tartrate (Ambien) 5 mg HSPRN PRN ORAL Insomnia 01/25/20 15:30 02/01/20 15:29 Franko Rogel MD Jan 28, 2020 06:25
[2020-01-28 08:00] VITALS: BP 122/97
--- NOTE | 2020-01-28 08:52 | General Progress Note ---
Assessment/Plan Problem List: (1) AMS (altered mental status) ICD Codes: R41.82 - Altered mental status, unspecified SNOMED: 477686662 (2) Diabetes ICD Codes: E11.9 - Type 2 diabetes mellitus without complications SNOMED: 23973247 (3) HTN (hypertension) ICD Codes: I10 - Essential (primary) hypertension SNOMED: 11651896 (4) Anemia ICD Codes: D64.9 - Anemia, unspecified SNOMED: 947482414 (5) Morbid obesity ICD Codes: E66.01 - Morbid (severe) obesity due to excess calories SNOMED: 216004674, 02362929390205 (6) Blindness of both eyes ICD Codes: H54.0 - Blindness SNOMED: 974445713 (7) Intractable back pain ICD Codes: M54.9 - Dorsalgia, unspecified SNOMED: 485770940 (8) ESRD (end stage renal disease) on dialysis ICD Codes: N18.6 - End stage renal disease; Z99.2 - Dependence on renal dialysis SNOMED: 443302831 Status: stable, progressing Assessment/Plan: o2p ulm tx pt diet dialysis cbc bmp am dc plan w hh Subjective Constitutional: Reports: weakness Respiratory: Reports: shortness of breath Allergies: Coded Allergies: NO KNOWN ALLERGIES (Unverified Allergy, Unknown, 10/15/15) All Systems: reviewed and negative except above Subjective sleepy calm Objective Last 24 Hour Vital Signs Date Time Temp Pulse Resp B/P (MAP) Pulse Ox O2 Delivery O2 Flow Rate FiO2 01/28/20 04:00 70 01/28/20 04:00 97.9 71 19 133/83 (100) 95 01/28/20 01:13 182/83 01/28/20 00:00 69 01/28/20 00:00 97.9 68 20 182/83 (116) 99 01/27/20 21:00 Room Air 01/27/20 20:00 97.9 75 19 161/92 (115) 95 01/27/20 20:00 73 01/27/20 17:39 153/73 01/27/20 16:00 69 01/27/20 16:00 97.8 69 20 153/73 (99) 98 01/27/20 12:00 97.7 72 20 147/70 (95) 97 01/27/20 12:00 70 01/27/20 09:48 156/79 01/27/20 09:00 Room Air 01/27/20 09:00 97 156/79 Intake and Output 01/27/20 01/28/20 19:00 07:00 Intake Total 400 ml 2250 ml Balance 400 ml 2250 ml Intake Oral 400 ml 250 ml Hemodialysis 2000 ml Laboratory Tests 01/28/20 00:45: White Blood Count 7.3, Red Blood Count 4.01L, Hemoglobin 9.8L, Hematocrit 30.9L , Mean Corpuscular Volume 77L, Mean Corpuscular Hemoglobin 24.4L, Mean Corpuscular Hemoglobin Concent 31.6L, Red Cell Distribution Width 16.3H, Platelet Count 242, Mean Platelet Volume 5.4L, Neutrophils (%) (Auto) 52.7, Lymphocytes (%) (Auto) 30.4, Monocytes (%) (Auto) 10.4H, Eosinophils (%) (Auto) 5.4H, Basophils (%) (Auto) 1.2, Sodium Level 132L, Potassium Level 5.1, Chloride Level 90L, Carbon Dioxide Level 33H, Anion Gap 9, Blood Urea Nitrogen 46H, Creatinine 7.0H, Estimat Glomerular Filtration Rate 7.2, Glucose Level 101 , Calcium Level 8.7, Total Creatine Kinase 60, Troponin I 0.029 Height (Feet): 5 Height (Inches): 9.00 Weight (Pounds): 268 General Appearance: lethargic EENT: normal ENT inspection Neck: normal alignment Cardiovascular: normal peripheral pulses, normal rate, regular rhythm Respiratory/Chest: chest wall non-tender, decreased breath sounds Abdomen: normal bowel sounds, non tender, soft Extremities: normal inspection Edema: no edema noted Arm (L), no edema noted Arm (R), no edema noted Leg (L), no edema noted Leg (R), no edema noted Pedal (L), no edema noted Pedal (R), no edema noted Generalized Neurologic: responsive, motor weakness Skin: normal pigmentation, warm/dry Roderick Henning DO Jan 28, 2020 08:52
--- NOTE | 2020-01-28 08:57 | General Progress Note ---
Assessment/Plan Assessment/Plan: (1) Morbid Obesity (2) Lumbar DDD (3) Lumbar Spondylosis (4) Lumbar Radiculopathy (5) Peripheral Neuropathy Patient to be continued on [place] D/w Dr. Santiago and he concurred. Subjective Date patient seen: Jan 28, 2020 Time patient seen: 08:30 - am Allergies: Coded Allergies: NO KNOWN ALLERGIES (Unverified Allergy, Unknown, 10/15/15) Subjective Constitutional: Reports: no symptoms Eye: Reports: blurred vision ENT: Reports: no symptoms Respiratory: Reports: no symptoms Cardiovascular: Reports: no symptoms Gastrointestinal: Reports: no symptoms Genitourinary: Reports: no symptoms Musculoskeletal: Reports: back pain Skin: Reports: no symptoms Psychiatric: Reports: no symptoms Neurological: Reports: tingling, focal weakness Endocrine: Reports: no symptoms Hematologic/Lymphatic: Reports: no symptoms SUBJECTIVE: In bed no signs of pain tolerated on the [place]. No new complaints at this time. Objective Last 24 Hour Vital Signs Date Time Temp Pulse Resp B/P (MAP) Pulse Ox O2 Delivery O2 Flow Rate FiO2 01/28/20 04:00 70 01/28/20 04:00 97.9 71 19 133/83 (100) 95 01/28/20 01:13 182/83 01/28/20 00:00 69 01/28/20 00:00 97.9 68 20 182/83 (116) 99 01/27/20 21:00 Room Air 01/27/20 20:00 97.9 75 19 161/92 (115) 95 01/27/20 20:00 73 01/27/20 17:39 153/73 01/27/20 16:00 69 01/27/20 16:00 97.8 69 20 153/73 (99) 98 01/27/20 12:00 97.7 72 20 147/70 (95) 97 01/27/20 12:00 70 01/27/20 09:48 156/79 01/27/20 09:00 Room Air 01/27/20 09:00 97 156/79 Intake and Output 01/27/20 01/28/20 18:59 06:59 Intake Total 400 ml 2250 ml Balance 400 ml 2250 ml Intake Oral 400 ml 250 ml Hemodialysis 2000 ml Laboratory Tests 01/28/20 00:45: White Blood Count 7.3, Red Blood Count 4.01L, Hemoglobin 9.8L, Hematocrit 30.9L , Mean Corpuscular Volume 77L, Mean Corpuscular Hemoglobin 24.4L, Mean Corpuscular Hemoglobin Concent 31.6L, Red Cell Distribution Width 16.3H, Platelet Count 242, Mean Platelet Volume 5.4L, Neutrophils (%) (Auto) 52.7, Lymphocytes (%) (Auto) 30.4, Monocytes (%) (Auto) 10.4H, Eosinophils (%) (Auto) 5.4H, Basophils (%) (Auto) 1.2, Sodium Level 132L, Potassium Level 5.1, Chloride Level 90L, Carbon Dioxide Level 33H, Anion Gap 9, Blood Urea Nitrogen 46H, Creatinine 7.0H, Estimat Glomerular Filtration Rate 7.2, Glucose Level 101 , Calcium Level 8.7, Total Creatine Kinase 60, Troponin I 0.029 Height (Feet): 5 Height (Inches): 9.00 Weight (Pounds): 268 Objective General Appearance: no apparent distress, alert HEENT: normocephalic, atraumatic Neck: non-tender, normal alignment Respiratory/Chest: decreased breath sounds Cardiovascular/Chest: normal rate, regular rhythm Abdomen: non tender, soft Extremities: non-tender Neurologic: alert, responsive Johnnie Isidro Jan 28, 2020 08:57
[2020-01-28] MEDS: Heparin 5000 units/ml inj SUBQ SCH ×2 (09:00→21:36)
[2020-01-28] MEDS: Thiamine 100mg tab ORAL SCH (09:42)
[2020-01-28] MEDS: Pyridoxine 50mg tab ORAL SCH (09:42)
[2020-01-28] MEDS: Docusate 100mg cap ORAL SCH ×2 (09:42→17:31)
--- NOTE | 2020-01-28 11:09 | Pulmonology Progress Note ---
Assessment/Plan Problems: (1) Accelerated hypertension (2) Uncontrolled diabetes mellitus (3) Hypoglycemia (4) Intractable back pain (5) ESRD (end stage renal disease) on dialysis (6) Lumbar radiculopathy (7) Coronary artery disease (8) Morbid obesity (9) Blindness of both eyes Assessment/Plan teli records reviewed, sinus BP better no new complains doing better Bs better mental status improving BP becoming more stable HD by nephrology sliding scale diabetic diet f/u cardio and renal recommendations. Subjective ROS Limited/Unobtainable: No Constitutional: Reports: no symptoms HEENT: Repors: no symptoms Allergies: Coded Allergies: NO KNOWN ALLERGIES (Unverified Allergy, Unknown, 10/15/15) Objective Last 24 Hour Vital Signs Date Time Temp Pulse Resp B/P (MAP) Pulse Ox O2 Delivery O2 Flow Rate FiO2 01/28/20 09:43 122/97 01/28/20 09:43 77 122/97 01/28/20 09:00 Room Air 01/28/20 08:00 97.6 77 20 122/97 (105) 94 01/28/20 08:00 83 01/28/20 04:00 70 01/28/20 04:00 97.9 71 19 133/83 (100) 95 01/28/20 01:13 182/83 01/28/20 00:00 69 01/28/20 00:00 97.9 68 20 182/83 (116) 99 01/27/20 21:00 Room Air 01/27/20 20:00 97.9 75 19 161/92 (115) 95 01/27/20 20:00 73 01/27/20 17:39 153/73 01/27/20 16:00 69 01/27/20 16:00 97.8 69 20 153/73 (99) 98 01/27/20 12:00 97.7 72 20 147/70 (95) 97 01/27/20 12:00 70 Intake and Output 01/27/20 01/28/20 19:00 07:00 Intake Total 400 ml 2250 ml Balance 400 ml 2250 ml Intake Oral 400 ml 250 ml Hemodialysis 2000 ml Objective got dialyzed today 2 liters removed General Appearance: WD/WN HEENT: normocephalic, atraumatic Respiratory/Chest: chest wall non-tender, decreased breath sounds Breasts: no masses Cardiovascular: normal rate, regular rhythm Abdomen: normal bowel sounds, soft, non tender Laboratory Tests 01/28/20 00:45: White Blood Count 7.3, Red Blood Count 4.01L, Hemoglobin 9.8L, Hematocrit 30.9L , Mean Corpuscular Volume 77L, Mean Corpuscular Hemoglobin 24.4L, Mean Corpuscular Hemoglobin Concent 31.6L, Red Cell Distribution Width 16.3H, Platelet Count 242, Mean Platelet Volume 5.4L, Neutrophils (%) (Auto) 52.7, Lymphocytes (%) (Auto) 30.4, Monocytes (%) (Auto) 10.4H, Eosinophils (%) (Auto) 5.4H, Basophils (%) (Auto) 1.2, Sodium Level 132L, Potassium Level 5.1, Chloride Level 90L, Carbon Dioxide Level 33H, Anion Gap 9, Blood Urea Nitrogen 46H, Creatinine 7.0H, Estimat Glomerular Filtration Rate 7.2, Glucose Level 101 , Calcium Level 8.7, Total Creatine Kinase 60, Troponin I 0.029 Current Medications Medications (Trade) Dose Ordered Sig/Josi Route PRN Reason Start Time Stop Time Status Last Admin Dose Admin Acetaminophen (Tylenol) 650 mg Q4H PRN ORAL Mild Pain/Temp > 100.5 01/25/20 15:30 02/24/20 15:29 Acetaminophen/ Hydrocodone Bitart ([place] 10/325) 1 tab Q6H PRN ORAL Pain Scale (6-10) 01/25/20 15:30 02/01/20 15:29 01/27/20 18:17 Amlodipine Besylate (Norvasc) 10 mg DAILY ORAL 01/26/20 09:00 02/25/20 08:59 01/28/20 09:43 Atorvastatin Calcium (Lipitor) 10 mg BEDTIME ORAL 01/25/20 21:00 02/24/20 20:59 01/27/20 20:57 Dextrose (Dextrose 50%) 25 ml Q30M PRN IV Hypoglycemia 01/25/20 15:30 02/24/20 15:29 Dextrose (Dextrose 50%) 50 ml Q30M PRN IV Hypoglycemia 01/25/20 15:30 02/24/20 15:29 01/25/20 16:27 Diphenhydramine HCl (Benadryl) 50 mg Q6H PRN ORAL Itching 01/25/20 15:30 02/24/20 15:29 01/28/20 04:08 Docusate Sodium (Colace) 100 mg TWICE A DAY ORAL 01/25/20 18:00 02/24/20 17:59 01/28/20 09:42 Epoetin Jose De Jesus (Epoetin Jose De Jesus(ESRD on dialysis)) 6,000 unit SUN-SUN-SUN SUBQ 01/26/20 21:00 02/25/20 20:59 01/26/20 21:20 Gabapentin (Neurontin) 300 mg THREE TIMES A DAY ORAL 01/25/20 18:00 02/24/20 17:59 01/28/20 09:43 Heparin Sodium (Porcine) (Heparin 5000 units/ml) 5,000 units EVERY 12 HOURS SUBQ 01/26/20 09:45 02/25/20 09:44 01/26/20 21:10 Hydralazine HCl (Apresoline) 25 mg Q4H PRN ORAL For High Blood Pressure 01/26/20 11:45 02/24/20 15:59 01/27/20 04:51 Hydralazine HCl (Apresoline) 100 mg Q8H ORAL 01/25/20 18:00 02/24/20 17:59 01/28/20 09:43 Insulin Aspart (NovoLOG) BEFORE MEALS AND HS SUBQ 01/25/20 16:30 02/24/20 16:29 Lorazepam (Ativan) 1 mg Q6H PRN ORAL For Anxiety 01/25/20 15:30 02/01/20 15:29 01/28/20 01:52 Pantoprazole (Protonix) 40 mg DAILY ORAL 01/26/20 09:00 02/25/20 08:59 01/28/20 09:43 Polyethylene Glycol (Miralax) 17 gm DAILYPRN PRN ORAL Constipation 01/25/20 15:30 02/24/20 15:29 Pyridoxine HCl (Vitamin B6) 50 mg DAILY ORAL 01/26/20 09:00 02/25/20 08:59 01/28/20 09:42 Thiamine HCl (Vitamin B1) 100 mg DAILY ORAL 01/26/20 11:45 02/25/20 11:44 01/28/20 09:42 Zolpidem Tartrate (Ambien) 5 mg HSPRN PRN ORAL Insomnia 01/25/20 15:30 02/01/20 15:29 Meghana Murillo MD Jan 28, 2020 11:09
[2020-01-28 12:00] VITALS: BP 164/84
--- NOTE | 2020-01-28 13:19 | Nephrology Progress Note ---
Assessment/Plan Problem List: (1) ESRD (end stage renal disease) on dialysis (2) Hypoglycemia (3) Diabetes (4) Anemia (5) Patient is Tenriism (6) Pacemaker (7) Obese (8) HTN (hypertension) Assessment End stage renal disease on dialysis. Has a right upper arm dialysis fistula as Acces . Getting dialysis Sunday. acute encephalopathy due to hypoglycemia h/o UTI (urinary tract infection) & Pyelonephritis morbid obesity Anemia / Jehova's witness CAD previous stent HTN- hypertensive urgency upon arrival to [facility]. s/p AVG DM 2 bilateral eye blindness h/o CHF Pacemaker Plan Dialysis 01/26 EPO, thiamin and b6 Phos binders diet to renal , medium CHO per consultants Subjective ROS Limited/Unobtainable: No Constitutional: Reports: malaise Objective Objective Last 24 Hour Vital Signs Date Time Temp Pulse Resp B/P (MAP) Pulse Ox O2 Delivery O2 Flow Rate FiO2 01/28/20 12:00 98.5 76 20 164/84 (110) 96 01/28/20 09:43 122/97 01/28/20 09:43 77 122/97 01/28/20 09:00 Room Air 01/28/20 08:00 97.6 77 20 122/97 (105) 94 01/28/20 08:00 83 01/28/20 04:00 70 01/28/20 04:00 97.9 71 19 133/83 (100) 95 01/28/20 01:13 182/83 01/28/20 00:00 69 01/28/20 00:00 97.9 68 20 182/83 (116) 99 01/27/20 21:00 Room Air 01/27/20 20:00 97.9 75 19 161/92 (115) 95 01/27/20 20:00 73 01/27/20 17:39 153/73 01/27/20 16:00 69 01/27/20 16:00 97.8 69 20 153/73 (99) 98 Intake and Output 01/27/20 01/28/20 19:00 07:00 Intake Total 400 ml 2250 ml Balance 400 ml 2250 ml Intake Oral 400 ml 250 ml Hemodialysis 2000 ml Laboratory Tests 01/28/20 00:45: White Blood Count 7.3, Red Blood Count 4.01L, Hemoglobin 9.8L, Hematocrit 30.9L , Mean Corpuscular Volume 77L, Mean Corpuscular Hemoglobin 24.4L, Mean Corpuscular Hemoglobin Concent 31.6L, Red Cell Distribution Width 16.3H, Platelet Count 242, Mean Platelet Volume 5.4L, Neutrophils (%) (Auto) 52.7, Lymphocytes (%) (Auto) 30.4, Monocytes (%) (Auto) 10.4H, Eosinophils (%) (Auto) 5.4H, Basophils (%) (Auto) 1.2, Sodium Level 132L, Potassium Level 5.1, Chloride Level 90L, Carbon Dioxide Level 33H, Anion Gap 9, Blood Urea Nitrogen 46H, Creatinine 7.0H, Estimat Glomerular Filtration Rate 7.2, Glucose Level 101 , Calcium Level 8.7, Total Creatine Kinase 60, Troponin I 0.029 Height (Feet): 5 Height (Inches): 9.00 Weight (Pounds): 268 General Appearance: no apparent distress Objective no change Bryan Hunter MD Jan 28, 2020 13:19
[2020-01-28] MEDS ORDERED: Vancomycin 1.5gm/NS Premix q24h IVPB SCH (15:00)
[2020-01-28 16:00] VITALS: BP 169/87
[2020-01-28 20:00] VITALS: BP 150/63
[2020-01-28] MEDS: Epoetin Alfa-EPBX(ESRD on dialysis)3000 units/ml vial SUBQ SCH (21:34)
[2020-01-28] MEDS: HYDROcodone/Acetamin 10/325 tab ORAL PRN (22:54)
[2020-01-29] VITALS (7 sets, daily range): BP systolic 141–153; BP diastolic 60–87
[2020-01-29] MEDS: HydrALAZINE 50mg tab ORAL SCH ×3 (02:09→17:19)
[2020-01-29] MEDS: NovoLOG Insulin Flexpen SUBQ SCH ×4 (06:23→21:00)
--- NOTE | 2020-01-29 07:21 | General Progress Note ---
Assessment/Plan Problem List: (1) Blindness of both eyes ICD Codes: H54.0 - Blindness SNOMED: 860262573 (2) Accelerated hypertension ICD Codes: I10 - Essential (primary) hypertension SNOMED: 42567063 (3) Uncontrolled diabetes mellitus ICD Codes: E11.9 - Type 2 diabetes mellitus without complications SNOMED: 061701430 (4) Hypoglycemia ICD Codes: E16.2 - Hypoglycemia, unspecified SNOMED: 150930141 Assessment/Plan: continue to hold scheduled diabetic medications hypoglycemia protocol in order low dose Novolog as needed Subjective Allergies: Coded Allergies: NO KNOWN ALLERGIES (Unverified Allergy, Unknown, 10/15/15) Subjective events noted glucose values are stable without hypoglycemia Item Value Date Time Bedside Blood Glucose 79 mg/dl 01/29/20 0623 Bedside Blood Glucose 158 mg/dl H 01/28/20 2100 Bedside Blood Glucose 135 mg/dl H 01/28/20 1630 Bedside Blood Glucose 126 mg/dl H 01/28/20 1130 Bedside Blood Glucose 137 mg/dl H 01/28/20 0630 Objective Last 24 Hour Vital Signs Date Time Temp Pulse Resp B/P (MAP) Pulse Ox O2 Delivery O2 Flow Rate FiO2 01/29/20 04:00 66 01/29/20 04:00 98.2 72 18 145/73 (97) 96 01/29/20 02:09 153/70 01/29/20 02:09 73 153/70 (97) 01/29/20 00:08 97.9 68 20 144/67 (92) 95 01/29/20 00:04 69 01/28/20 21:00 Room Air 01/28/20 20:00 77 01/28/20 20:00 97.4 76 20 150/63 (92) 95 01/28/20 17:31 169/87 01/28/20 16:00 92 01/28/20 16:00 97.3 78 20 169/87 (114) 98 01/28/20 12:00 77 01/28/20 12:00 98.5 76 20 164/84 (110) 96 01/28/20 09:43 122/97 01/28/20 09:43 77 122/97 01/28/20 09:00 Room Air 01/28/20 08:00 97.6 77 20 122/97 (105) 94 01/28/20 08:00 83 Intake and Output 01/28/20 01/29/20 19:00 07:00 Intake Total 3080 ml Output Total 700 ml Balance 2380 ml Intake Oral 1080 ml Hemodialysis 2000 ml Output Urine Total 700 ml # Voids 2 # Bowel Movements 1 1 Height (Feet): 5 Height (Inches): 9.00 Weight (Pounds): 268 General Appearance: no apparent distress Neck: normal alignment Cardiovascular: normal rate Respiratory/Chest: decreased breath sounds Abdomen: normal bowel sounds Pelvis: normal external exam Objective Current Medications Medications (Trade) Dose Ordered Sig/Josi Route PRN Reason Start Time Stop Time Status Last Admin Dose Admin Acetaminophen (Tylenol) 650 mg Q4H PRN ORAL Mild Pain/Temp > 100.5 01/25/20 15:30 02/24/20 15:29 Acetaminophen/ Hydrocodone Bitart ([place] 10/325) 1 tab Q6H PRN ORAL Pain Scale (6-10) 01/25/20 15:30 02/01/20 15:29 01/28/20 22:54 Amlodipine Besylate (Norvasc) 10 mg DAILY ORAL 01/26/20 09:00 02/25/20 08:59 01/28/20 09:43 Atorvastatin Calcium (Lipitor) 10 mg BEDTIME ORAL 01/25/20 21:00 02/24/20 20:59 01/28/20 21:35 Dextrose (Dextrose 50%) 25 ml Q30M PRN IV Hypoglycemia 01/25/20 15:30 02/24/20 15:29 Dextrose (Dextrose 50%) 50 ml Q30M PRN IV Hypoglycemia 01/25/20 15:30 02/24/20 15:29 01/25/20 16:27 Diphenhydramine HCl (Benadryl) 50 mg Q6H PRN ORAL Itching 01/25/20 15:30 02/24/20 15:29 01/28/20 04:08 Docusate Sodium (Colace) 100 mg TWICE A DAY ORAL 01/25/20 18:00 02/24/20 17:59 01/28/20 17:31 Epoetin Jose De Jesus (Epoetin Jose De Jesus(ESRD on dialysis)) 6,000 unit SUN-SUN-SUN SUBQ 01/26/20 21:00 02/25/20 20:59 01/28/20 21:34 Gabapentin (Neurontin) 300 mg THREE TIMES A DAY ORAL 01/25/20 18:00 02/24/20 17:59 01/28/20 17:31 Heparin Sodium (Porcine) (Heparin 5000 units/ml) 5,000 units EVERY 12 HOURS SUBQ 01/26/20 09:45 02/25/20 09:44 01/28/20 21:36 Hydralazine HCl (Apresoline) 25 mg Q4H PRN ORAL For High Blood Pressure 01/26/20 11:45 02/24/20 15:59 01/27/20 04:51 Hydralazine HCl (Apresoline) 100 mg Q8H ORAL 01/25/20 18:00 02/24/20 17:59 01/29/20 02:09 Insulin Aspart (NovoLOG) BEFORE MEALS AND HS SUBQ 01/25/20 16:30 02/24/20 16:29 Lorazepam (Ativan) 1 mg Q6H PRN ORAL For Anxiety 01/25/20 15:30 02/01/20 15:29 01/28/20 01:52 Pantoprazole (Protonix) 40 mg DAILY ORAL 01/26/20 09:00 02/25/20 08:59 01/28/20 09:43 Polyethylene Glycol (Miralax) 17 gm DAILYPRN PRN ORAL Constipation 01/25/20 15:30 02/24/20 15:29 Pyridoxine HCl (Vitamin B6) 50 mg DAILY ORAL 01/26/20 09:00 02/25/20 08:59 01/28/20 09:42 Thiamine HCl (Vitamin B1) 100 mg DAILY ORAL 01/26/20 11:45 02/25/20 11:44 01/28/20 09:42 Vancomycin HCl (Vanco rx to dose) 1 ea DAILY PRN MISC Per rx protocol 01/28/20 13:30 02/27/20 13:29 Zolpidem Tartrate (Ambien) 5 mg HSPRN PRN ORAL Insomnia 01/25/20 15:30 02/01/20 15:29 Franko Rogel MD Jan 29, 2020 07:21
[2020-01-29 08:44] LABS: ANION GAP 8 mmol/L (5-15); BLOOD UREA NITROGEN 57 mg/dL (7-18); CALCIUM 9.1 MG/DL (8.5-10.1); CARBON DIOXIDE 31 MMOL/L (21-32); CHLORIDE 91 MMOL/L (98-107); POTASSIUM 5.4 MMOL/L (3.5-5.1); SODIUM 130 MMOL/L (136-145)
--- NOTE | 2020-01-29 08:44 | General Progress Note ---
Assessment/Plan Problem List: (1) AMS (altered mental status) ICD Codes: R41.82 - Altered mental status, unspecified SNOMED: 072722341 (2) Diabetes ICD Codes: E11.9 - Type 2 diabetes mellitus without complications SNOMED: 36616106 (3) HTN (hypertension) ICD Codes: I10 - Essential (primary) hypertension SNOMED: 74781379 (4) Anemia ICD Codes: D64.9 - Anemia, unspecified SNOMED: 400737852 (5) Morbid obesity ICD Codes: E66.01 - Morbid (severe) obesity due to excess calories SNOMED: 351183009, 32253552983295 (6) Blindness of both eyes ICD Codes: H54.0 - Blindness SNOMED: 504608064 (7) Intractable back pain ICD Codes: M54.9 - Dorsalgia, unspecified SNOMED: 719523662 (8) ESRD (end stage renal disease) on dialysis ICD Codes: N18.6 - End stage renal disease; Z99.2 - Dependence on renal dialysis SNOMED: 200509527 Status: stable, progressing Assessment/Plan: o2p ulm tx pt diet dialysis cbc bmp am dc w hh if clear Subjective Constitutional: Reports: weakness Allergies: Coded Allergies: NO KNOWN ALLERGIES (Unverified Allergy, Unknown, 10/15/15) All Systems: reviewed and negative except above Subjective sleepy calm Objective Last 24 Hour Vital Signs Date Time Temp Pulse Resp B/P (MAP) Pulse Ox O2 Delivery O2 Flow Rate FiO2 01/29/20 08:00 98.7 66 19 151/73 (99) 97 01/29/20 04:00 66 01/29/20 04:00 98.2 72 18 145/73 (97) 96 01/29/20 02:09 153/70 01/29/20 02:09 73 153/70 (97) 01/29/20 00:08 97.9 68 20 144/67 (92) 95 01/29/20 00:04 69 01/28/20 21:00 Room Air 01/28/20 20:00 77 01/28/20 20:00 97.4 76 20 150/63 (92) 95 01/28/20 17:31 169/87 01/28/20 16:00 92 01/28/20 16:00 97.3 78 20 169/87 (114) 98 01/28/20 12:00 77 01/28/20 12:00 98.5 76 20 164/84 (110) 96 01/28/20 09:43 122/97 01/28/20 09:43 77 122/97 01/28/20 09:00 Room Air Intake and Output 01/28/20 01/29/20 19:00 07:00 Intake Total 3080 ml Output Total 700 ml Balance 2380 ml Intake Oral 1080 ml Hemodialysis 2000 ml Output Urine Total 700 ml # Voids 2 # Bowel Movements 1 1 Laboratory Tests 01/29/20 08:05: White Blood Count [Pending], Red Blood Count [Pending], Hemoglobin [Pending], Hematocrit [Pending], Mean Corpuscular Volume [Pending], Mean Corpuscular Hemoglobin [Pending], Mean Corpuscular Hemoglobin Concent [Pending], Red Cell Distribution Width [Pending], Platelet Count [Pending], Mean Platelet Volume [ Pending], Neutrophils (%) (Auto) [Pending], Lymphocytes (%) (Auto) [Pending], Monocytes (%) (Auto) [Pending], Eosinophils (%) (Auto) [Pending], Basophils (%) (Auto) [Pending], Sodium Level [Pending], Potassium Level [Pending], Chloride Level [Pending], Carbon Dioxide Level [Pending], Blood Urea Nitrogen [Pending], Creatinine [Pending], Estimat Glomerular Filtration Rate [Pending], Glucose Level [Pending], Calcium Level [Pending], Random Vancomycin Level [Pending] Height (Feet): 5 Height (Inches): 9.00 Weight (Pounds): 268 General Appearance: lethargic EENT: normal ENT inspection Neck: normal alignment Cardiovascular: normal peripheral pulses, normal rate, regular rhythm Respiratory/Chest: chest wall non-tender, lungs clear, normal breath sounds Abdomen: normal bowel sounds, non tender, soft Extremities: normal inspection Edema: no edema noted Arm (L), no edema noted Arm (R), no edema noted Leg (L), no edema noted Leg (R), no edema noted Pedal (L), no edema noted Pedal (R), no edema noted Generalized Neurologic: motor weakness Skin: normal pigmentation, warm/dry Roderick Henning DO Jan 29, 2020 08:44
[2020-01-29 08:49] LABS: BASOPHILS % (AUTO) 1.1 % (0.0-2.0); EOSINOPHILS % (AUTO) 7.1 % (0.0-3.0); HEMATOCRIT 30.5 % (37.0-47.0); HEMOGLOBIN 9.6 G/DL (12.0-16.0); LYMPHOCYTES % (AUTO) 29.4 % (20.0-45.0); MEAN CORPUSCULAR VOLUME 78 FL (80-99); MONOCYTES % (AUTO) 12.7 % (1.0-10.0); NEUTROPHILS % (AUTO) 49.8 % (45.0-75.0); PLATELET COUNT 212 K/UL (150-450); RED CELL DISTRIBUTION WIDTH 16.6 % (11.6-14.8); WHITE BLOOD COUNT 6.5 K/UL (4.8-10.8)
[2020-01-29] MEDS: Heparin 5000 units/ml inj SUBQ SCH ×2 (09:00→23:17)
[2020-01-29] MEDS: Thiamine 100mg tab ORAL SCH (09:04)
[2020-01-29] MEDS: Docusate 100mg cap ORAL SCH ×2 (09:04→17:18)
[2020-01-29] MEDS: Pyridoxine 50mg tab ORAL SCH (09:04)
--- NOTE | 2020-01-29 09:23 | General Progress Note ---
Assessment/Plan Assessment/Plan: (1) Morbid Obesity (2) Lumbar DDD (3) Lumbar Spondylosis (4) Lumbar Radiculopathy (5) Peripheral Neuropathy Patient to be continued on Connelly D/w Dr. Santiago and he concurred. Subjective Date patient seen: Jan 29, 2020 Time patient seen: 08:15 - am Allergies: Coded Allergies: NO KNOWN ALLERGIES (Unverified Allergy, Unknown, 10/15/15) Subjective Constitutional: Reports: no symptoms Eye: Reports: blurred vision ENT: Reports: no symptoms Respiratory: Reports: no symptoms Cardiovascular: Reports: no symptoms Gastrointestinal: Reports: no symptoms Genitourinary: Reports: no symptoms Musculoskeletal: Reports: back pain Skin: Reports: no symptoms Psychiatric: Reports: no symptoms Neurological: Reports: tingling, focal weakness Endocrine: Reports: no symptoms Hematologic/Lymphatic: Reports: no symptoms SUBJECTIVE: Pain has been stable on the Connelly using it as needed. No new complaints at this time. Eating breakfast Objective Last 24 Hour Vital Signs Date Time Temp Pulse Resp B/P (MAP) Pulse Ox O2 Delivery O2 Flow Rate FiO2 01/29/20 09:10 151/73 01/29/20 08:00 98.7 66 19 151/73 (99) 97 01/29/20 04:00 66 01/29/20 04:00 98.2 72 18 145/73 (97) 96 01/29/20 02:09 153/70 01/29/20 02:09 73 153/70 (97) 01/29/20 00:08 97.9 68 20 144/67 (92) 95 01/29/20 00:04 69 01/28/20 21:00 Room Air 01/28/20 20:00 77 01/28/20 20:00 97.4 76 20 150/63 (92) 95 01/28/20 17:31 169/87 01/28/20 16:00 92 01/28/20 16:00 97.3 78 20 169/87 (114) 98 01/28/20 12:00 77 01/28/20 12:00 98.5 76 20 164/84 (110) 96 01/28/20 09:43 122/97 01/28/20 09:43 77 122/97 Intake and Output 01/28/20 01/29/20 19:00 07:00 Intake Total 3080 ml Output Total 700 ml Balance 2380 ml Intake Oral 1080 ml Hemodialysis 2000 ml Output Urine Total 700 ml # Voids 2 # Bowel Movements 1 1 Laboratory Tests 01/29/20 08:05: White Blood Count 6.5, Red Blood Count 3.90L, Hemoglobin 9.6L, Hematocrit 30.5L , Mean Corpuscular Volume 78L, Mean Corpuscular Hemoglobin 24.7L, Mean Corpuscular Hemoglobin Concent 31.6L, Red Cell Distribution Width 16.6H, Platelet Count 212, Mean Platelet Volume 5.7L, Neutrophils (%) (Auto) 49.8, Lymphocytes (%) (Auto) 29.4, Monocytes (%) (Auto) 12.7H, Eosinophils (%) (Auto) 7.1H, Basophils (%) (Auto) 1.1, Sodium Level 130L, Potassium Level 5.4H, Chloride Level 91L, Carbon Dioxide Level 31, Anion Gap 8, Blood Urea Nitrogen 57H, Creatinine 7.0H, Estimat Glomerular Filtration Rate 7.2, Glucose Level 98, Calcium Level 9.1, Random Vancomycin Level 13.2 Height (Feet): 5 Height (Inches): 9.00 Weight (Pounds): 268 Objective General Appearance: no apparent distress, alert HEENT: normocephalic, atraumatic Neck: non-tender, normal alignment Respiratory/Chest: decreased breath sounds Cardiovascular/Chest: normal rate, regular rhythm Abdomen: non tender, soft Extremities: non-tender Neurologic: alert, responsive Johnnie Isidro Jan 29, 2020 09:23
[2020-01-29] MEDS ORDERED: HYDRALAZINE HCL25 M1 ORAL (09:27)
[2020-01-29 10:20] LABS: ALANINE AMINOTRANSFERASE 26 U/L (12-78); ALBUMIN 3.4 G/DL (3.4-5.0); ALKALINE PHOSPHATASE 369 U/L (46-116); ASPARTATE AMINO TRANSFERASE 41 U/L (15-37); BILIRUBIN,DIRECT < 0.1 MG/DL (0.0-0.3); BILIRUBIN,TOTAL 0.5 MG/DL (0.2-1.0); PHOSPHORUS 6.6 MG/DL (2.5-4.9)
[2020-01-29] MEDS: HYDROcodone/Acetamin 10/325 tab ORAL PRN ×2 (11:28→23:13)
--- NOTE | 2020-01-29 12:02 | Pulmonology Progress Note ---
Assessment/Plan Problems: (1) Bacteremia (2) Accelerated hypertension (3) Uncontrolled diabetes mellitus (4) Hypoglycemia (5) Intractable back pain (6) ESRD (end stage renal disease) on dialysis (7) Lumbar radiculopathy (8) Coronary artery disease (9) Morbid obesity (10) Blindness of both eyes Assessment/Plan f/u blood culture results teli records reviewed, sinus BP better no new complains doing better Bs better mental status improving BP becoming more stable HD by nephrology sliding scale diabetic diet f/u cardio and renal recommendations. Subjective ROS Limited/Unobtainable: No Constitutional: Reports: no symptoms HEENT: Repors: no symptoms Allergies: Coded Allergies: NO KNOWN ALLERGIES (Unverified Allergy, Unknown, 10/15/15) Objective Last 24 Hour Vital Signs Date Time Temp Pulse Resp B/P (MAP) Pulse Ox O2 Delivery O2 Flow Rate FiO2 01/29/20 09:10 151/73 01/29/20 09:00 Room Air 01/29/20 08:00 68 01/29/20 08:00 98.7 66 19 151/73 (99) 97 01/29/20 04:00 66 01/29/20 04:00 98.2 72 18 145/73 (97) 96 01/29/20 02:09 153/70 01/29/20 02:09 73 153/70 (97) 01/29/20 00:08 97.9 68 20 144/67 (92) 95 01/29/20 00:04 69 01/28/20 21:00 Room Air 01/28/20 20:00 77 01/28/20 20:00 97.4 76 20 150/63 (92) 95 01/28/20 17:31 169/87 01/28/20 16:00 92 01/28/20 16:00 97.3 78 20 169/87 (114) 98 Intake and Output 01/28/20 01/29/20 19:00 07:00 Intake Total 3080 ml Output Total 700 ml Balance 2380 ml Intake Oral 1080 ml Hemodialysis 2000 ml Output Urine Total 700 ml # Voids 2 # Bowel Movements 1 1 Objective no new complains General Appearance: no acute distress HEENT: normocephalic, atraumatic Respiratory/Chest: chest wall non-tender, lungs clear Breasts: no masses Cardiovascular: normal peripheral pulses, normal rate Abdomen: normal bowel sounds, soft, non tender Genitourinary: normal external genitalia Skin: no rash Neurologic/Psychiatric: engineer specialist II-XII grossly normal Lymphatic: no neck adenopathy Laboratory Tests 01/29/20 08:05: White Blood Count 6.5, Red Blood Count 3.90L, Hemoglobin 9.6L, Hematocrit 30.5L , Mean Corpuscular Volume 78L, Mean Corpuscular Hemoglobin 24.7L, Mean Corpuscular Hemoglobin Concent 31.6L, Red Cell Distribution Width 16.6H, Platelet Count 212, Mean Platelet Volume 5.7L, Neutrophils (%) (Auto) 49.8, Lymphocytes (%) (Auto) 29.4, Monocytes (%) (Auto) 12.7H, Eosinophils (%) (Auto) 7.1H, Basophils (%) (Auto) 1.1, Sodium Level 130L, Potassium Level 5.4H, Chloride Level 91L, Carbon Dioxide Level 31, Anion Gap 8, Blood Urea Nitrogen 57H, Creatinine 7.0H, Estimat Glomerular Filtration Rate 7.2, Glucose Level 98, Calcium Level 9.1, Phosphorus Level 6.6H, Magnesium Level 2.5H, Total Bilirubin 0.5, Direct Bilirubin < 0.1, Aspartate Amino Transf (AST/SGOT) 41H, Alanine Aminotransferase (ALT/SGPT) 26, Alkaline Phosphatase 369H, C-Reactive Protein, Quantitative 0.7, Total Protein 7.1, Albumin 3.4, Random Vancomycin Level 13.2 Current Medications Medications (Trade) Dose Ordered Sig/Josi Route PRN Reason Start Time Stop Time Status Last Admin Dose Admin Acetaminophen (Tylenol) 650 mg Q4H PRN ORAL Mild Pain/Temp > 100.5 01/25/20 15:30 02/24/20 15:29 Acetaminophen/ Hydrocodone Bitart ([place] 10/325) 1 tab Q6H PRN ORAL Pain Scale (6-10) 01/25/20 15:30 02/01/20 15:29 01/29/20 11:28 Amlodipine Besylate (Norvasc) 10 mg DAILY ORAL 01/26/20 09:00 02/25/20 08:59 01/28/20 09:43 Atorvastatin Calcium (Lipitor) 10 mg BEDTIME ORAL 01/25/20 21:00 02/24/20 20:59 01/28/20 21:35 Dextrose (Dextrose 50%) 25 ml Q30M PRN IV Hypoglycemia 01/25/20 15:30 02/24/20 15:29 Dextrose (Dextrose 50%) 50 ml Q30M PRN IV Hypoglycemia 01/25/20 15:30 02/24/20 15:29 01/25/20 16:27 Diphenhydramine HCl (Benadryl) 50 mg Q6H PRN ORAL Itching 01/25/20 15:30 02/24/20 15:29 01/28/20 04:08 Docusate Sodium (Colace) 100 mg TWICE A DAY ORAL 01/25/20 18:00 02/24/20 17:59 01/29/20 09:04 Epoetin Jose De Jesus (Epoetin Jose De Jesus(ESRD on dialysis)) 6,000 unit SUN-SUN-SUN SUBQ 01/26/20 21:00 02/25/20 20:59 01/28/20 21:34 Gabapentin (Neurontin) 300 mg THREE TIMES A DAY ORAL 01/25/20 18:00 02/24/20 17:59 01/29/20 09:04 Heparin Sodium (Porcine) (Heparin 5000 units/ml) 5,000 units EVERY 12 HOURS SUBQ 01/26/20 09:45 02/25/20 09:44 01/28/20 21:36 Hydralazine HCl (Apresoline) 25 mg Q4H PRN ORAL For High Blood Pressure 01/26/20 11:45 02/24/20 15:59 01/27/20 04:51 Hydralazine HCl (Apresoline) 100 mg Q8H ORAL 01/25/20 18:00 02/24/20 17:59 01/29/20 02:09 Insulin Aspart (NovoLOG) BEFORE MEALS AND HS SUBQ 01/25/20 16:30 02/24/20 16:29 Lorazepam (Ativan) 1 mg Q6H PRN ORAL For Anxiety 01/25/20 15:30 02/01/20 15:29 01/28/20 01:52 Pantoprazole (Protonix) 40 mg DAILY ORAL 01/26/20 09:00 02/25/20 08:59 01/29/20 09:04 Polyethylene Glycol (Miralax) 17 gm DAILYPRN PRN ORAL Constipation 01/25/20 15:30 02/24/20 15:29 Pyridoxine HCl (Vitamin B6) 50 mg DAILY ORAL 01/26/20 09:00 02/25/20 08:59 01/29/20 09:04 Thiamine HCl (Vitamin B1) 100 mg DAILY ORAL 01/26/20 11:45 02/25/20 11:44 01/29/20 09:04 Vancomycin HCl (Vanco rx to dose) 1 ea DAILY PRN MISC Per rx protocol 01/28/20 13:30 02/27/20 13:29 Vancomycin HCl 1 gm/Dextrose 275 ml @ 183.708 mls/hr ONCE IVPB 01/29/20 20:00 01/29/20 22:00 Zolpidem Tartrate (Ambien) 5 mg HSPRN PRN ORAL Insomnia 01/25/20 15:30 02/01/20 15:29 Meghana Murillo MD Jan 29, 2020 12:02
--- NOTE | 2020-01-29 13:26 | Nephrology Progress Note ---
Assessment/Plan Problem List: (1) ESRD (end stage renal disease) on dialysis (2) Hypoglycemia (3) Diabetes (4) Anemia (5) Patient is Zoroastrian (6) Pacemaker (7) Obese (8) HTN (hypertension) Assessment End stage renal disease on dialysis. Has a right upper arm dialysis fistula as Acces . Getting dialysis Sunday. acute encephalopathy due to hypoglycemia h/o UTI (urinary tract infection) & Pyelonephritis morbid obesity Anemia / Jehova's witness CAD previous stent HTN- hypertensive urgency upon arrival to [facility]. s/p AVG DM 2 bilateral eye blindness h/o CHF Pacemaker Plan Dialysis 01/28 EPO, thiamin and b6 Phos binders diet to renal , medium CHO per consultants Subjective ROS Limited/Unobtainable: No Constitutional: Reports: malaise Objective Objective Last 24 Hour Vital Signs Date Time Temp Pulse Resp B/P (MAP) Pulse Ox O2 Delivery O2 Flow Rate FiO2 01/29/20 12:00 98.1 69 18 141/60 (87) 97 01/29/20 12:00 68 01/29/20 09:10 151/73 01/29/20 09:00 Room Air 01/29/20 08:00 68 01/29/20 08:00 98.7 66 19 151/73 (99) 97 01/29/20 04:00 66 01/29/20 04:00 98.2 72 18 145/73 (97) 96 01/29/20 02:09 153/70 01/29/20 02:09 73 153/70 (97) 01/29/20 00:08 97.9 68 20 144/67 (92) 95 01/29/20 00:04 69 01/28/20 21:00 Room Air 01/28/20 20:00 77 01/28/20 20:00 97.4 76 20 150/63 (92) 95 01/28/20 17:31 169/87 01/28/20 16:00 92 01/28/20 16:00 97.3 78 20 169/87 (114) 98 Intake and Output 01/28/20 01/29/20 19:00 07:00 Intake Total 3080 ml Output Total 700 ml Balance 2380 ml Intake Oral 1080 ml Hemodialysis 2000 ml Output Urine Total 700 ml # Voids 2 # Bowel Movements 1 1 Laboratory Tests 01/29/20 08:05: White Blood Count 6.5, Red Blood Count 3.90L, Hemoglobin 9.6L, Hematocrit 30.5L , Mean Corpuscular Volume 78L, Mean Corpuscular Hemoglobin 24.7L, Mean Corpuscular Hemoglobin Concent 31.6L, Red Cell Distribution Width 16.6H, Platelet Count 212, Mean Platelet Volume 5.7L, Neutrophils (%) (Auto) 49.8, Lymphocytes (%) (Auto) 29.4, Monocytes (%) (Auto) 12.7H, Eosinophils (%) (Auto) 7.1H, Basophils (%) (Auto) 1.1, Sodium Level 130L, Potassium Level 5.4H, Chloride Level 91L, Carbon Dioxide Level 31, Anion Gap 8, Blood Urea Nitrogen 57H, Creatinine 7.0H, Estimat Glomerular Filtration Rate 7.2, Glucose Level 98, Calcium Level 9.1, Phosphorus Level 6.6H, Magnesium Level 2.5H, Total Bilirubin 0.5, Direct Bilirubin < 0.1, Aspartate Amino Transf (AST/SGOT) 41H, Alanine Aminotransferase (ALT/SGPT) 26, Alkaline Phosphatase 369H, C-Reactive Protein, Quantitative 0.7, Total Protein 7.1, Albumin 3.4, Random Vancomycin Level 13.2 Height (Feet): 5 Height (Inches): 9.00 Weight (Pounds): 268 General Appearance: no apparent distress Respiratory/Chest: decreased breath sounds Abdomen: hypoactive bowel sounds, other - Obese Objective no change Bryan Hunter MD Jan 29, 2020 13:26
--- NOTE | 2020-01-29 18:05 | Infectious Diseases Prog Note ---
Subjective Allergies: Coded Allergies: NO KNOWN ALLERGIES (Unverified Allergy, Unknown, 10/15/15) Subjective # [id number] Objective Vital Signs Last 24 Hour Vital Signs Date Time Temp Pulse Resp B/P (MAP) Pulse Ox O2 Delivery O2 Flow Rate FiO2 01/29/20 17:19 143/73 01/29/20 16:33 62 01/29/20 16:00 97.6 69 20 143/73 (96) 94 01/29/20 12:00 98.1 69 18 141/60 (87) 97 01/29/20 12:00 68 01/29/20 09:10 151/73 01/29/20 09:00 Room Air 01/29/20 08:00 68 01/29/20 08:00 98.7 66 19 151/73 (99) 97 01/29/20 04:00 66 01/29/20 04:00 98.2 72 18 145/73 (97) 96 01/29/20 02:09 153/70 01/29/20 02:09 73 153/70 (97) 01/29/20 00:08 97.9 68 20 144/67 (92) 95 01/29/20 00:04 69 01/28/20 21:00 Room Air 01/28/20 20:00 77 01/28/20 20:00 97.4 76 20 150/63 (92) 95 Height (Feet): 5 Height (Inches): 9.00 Weight (Pounds): 268 Laboratory Tests Test 01/29/20 08:05 White Blood Count 6.5 K/UL (4.8-10.8) Red Blood Count 3.90 M/UL (4.20-5.40) L Hemoglobin 9.6 G/DL (12.0-16.0) L Hematocrit 30.5 % (37.0-47.0) L Mean Corpuscular Volume 78 FL (80-99) L Mean Corpuscular Hemoglobin 24.7 PG (27.0-31.0) L Mean Corpuscular Hemoglobin Concent 31.6 G/DL (32.0-36.0) L Red Cell Distribution Width 16.6 % (11.6-14.8) H Platelet Count 212 K/UL (150-450) Mean Platelet Volume 5.7 FL (6.5-10.1) L Neutrophils (%) (Auto) 49.8 % (45.0-75.0) Lymphocytes (%) (Auto) 29.4 % (20.0-45.0) Monocytes (%) (Auto) 12.7 % (1.0-10.0) H Eosinophils (%) (Auto) 7.1 % (0.0-3.0) H Basophils (%) (Auto) 1.1 % (0.0-2.0) Sodium Level 130 MMOL/L (136-145) L Potassium Level 5.4 MMOL/L (3.5-5.1) H Chloride Level 91 MMOL/L (98-107) L Carbon Dioxide Level 31 MMOL/L (21-32) Anion Gap 8 mmol/L (5-15) Blood Urea Nitrogen 57 mg/dL (7-18) H Creatinine 7.0 MG/DL (0.55-1.30) H Estimat Glomerular Filtration Rate 7.2 mL/min (>60) Glucose Level 98 MG/DL (74-106) Calcium Level 9.1 MG/DL (8.5-10.1) Phosphorus Level 6.6 MG/DL (2.5-4.9) H Magnesium Level 2.5 MG/DL (1.8-2.4) H Total Bilirubin 0.5 MG/DL (0.2-1.0) Direct Bilirubin < 0.1 MG/DL (0.0-0.3) Aspartate Amino Transf (AST/SGOT) 41 U/L (15-37) H Alanine Aminotransferase (ALT/SGPT) 26 U/L (12-78) Alkaline Phosphatase 369 U/L (46-116) H C-Reactive Protein, Quantitative 0.7 mg/dL (0.00-0.90) Total Protein 7.1 G/DL (6.4-8.2) Albumin 3.4 G/DL (3.4-5.0) Random Vancomycin Level 13.2 ug/mL Current Medications Medications (Trade) Dose Ordered Sig/Josi Route PRN Reason Start Time Stop Time Status Last Admin Dose Admin Acetaminophen (Tylenol) 650 mg Q4H PRN ORAL Mild Pain/Temp > 100.5 01/25/20 15:30 02/24/20 15:29 Acetaminophen/ Hydrocodone Bitart ([place] 10/325) 1 tab Q6H PRN ORAL Pain Scale (6-10) 01/25/20 15:30 02/01/20 15:29 01/29/20 11:28 Amlodipine Besylate (Norvasc) 10 mg DAILY ORAL 01/26/20 09:00 02/25/20 08:59 01/28/20 09:43 Atorvastatin Calcium (Lipitor) 10 mg BEDTIME ORAL 01/25/20 21:00 02/24/20 20:59 01/28/20 21:35 Dextrose (Dextrose 50%) 25 ml Q30M PRN IV Hypoglycemia 01/25/20 15:30 02/24/20 15:29 Dextrose (Dextrose 50%) 50 ml Q30M PRN IV Hypoglycemia 01/25/20 15:30 02/24/20 15:29 01/25/20 16:27 Diphenhydramine HCl (Benadryl) 50 mg Q6H PRN ORAL Itching 01/25/20 15:30 02/24/20 15:29 01/28/20 04:08 Docusate Sodium (Colace) 100 mg TWICE A DAY ORAL 01/25/20 18:00 02/24/20 17:59 01/29/20 17:18 Epoetin Jose De Jesus (Epoetin Jose De Jesus(ESRD on dialysis)) 6,000 unit SUN-SUN-SUN SUBQ 01/26/20 21:00 02/25/20 20:59 01/28/20 21:34 Gabapentin (Neurontin) 300 mg THREE TIMES A DAY ORAL 01/25/20 18:00 02/24/20 17:59 01/29/20 17:19 Heparin Sodium (Porcine) (Heparin 5000 units/ml) 5,000 units EVERY 12 HOURS SUBQ 01/26/20 09:45 02/25/20 09:44 01/28/20 21:36 Hydralazine HCl (Apresoline) 25 mg Q4H PRN ORAL For High Blood Pressure 01/26/20 11:45 02/24/20 15:59 01/27/20 04:51 Hydralazine HCl (Apresoline) 100 mg Q8H ORAL 01/25/20 18:00 02/24/20 17:59 01/29/20 17:19 Insulin Aspart (NovoLOG) BEFORE MEALS AND HS SUBQ 01/25/20 16:30 02/24/20 16:29 01/29/20 16:30 Lorazepam (Ativan) 1 mg Q6H PRN ORAL For Anxiety 01/25/20 15:30 02/01/20 15:29 01/28/20 01:52 Pantoprazole (Protonix) 40 mg DAILY ORAL 01/26/20 09:00 02/25/20 08:59 01/29/20 09:04 Polyethylene Glycol (Miralax) 17 gm DAILYPRN PRN ORAL Constipation 01/25/20 15:30 02/24/20 15:29 Pyridoxine HCl (Vitamin B6) 50 mg DAILY ORAL 01/26/20 09:00 02/25/20 08:59 01/29/20 09:04 Sevelamer Carbonate (Renvela) 1,600 mg THREE TIMES A DAY ORAL 01/29/20 18:00 02/28/20 17:59 01/29/20 17:21 Thiamine HCl (Vitamin B1) 100 mg DAILY ORAL 01/26/20 11:45 02/25/20 11:44 01/29/20 09:04 Vancomycin HCl (Vanco rx to dose) 1 ea DAILY PRN MISC Per rx protocol 01/28/20 13:30 02/27/20 13:29 Vancomycin HCl 1 gm/Dextrose 275 ml @ 183.708 mls/hr ONCE IVPB 01/29/20 20:00 01/29/20 22:00 Zolpidem Tartrate (Ambien) 5 mg HSPRN PRN ORAL Insomnia 01/25/20 15:30 02/01/20 15:29 Mic Long MD Jan 29, 2020 18:05
--- NOTE | 2020-01-29 18:48 | Cardiology Progress Note ---
Assessment/Plan Assessment/Plan 1. Altered mentation, seemed to improve. 2. History of coronary artery disease, status post coronary artery stenting x2 in 2010. 3. Diabetes mellitus. 4. End-stage renal disease, on hemodialysis. 5. Morbid obesity. 6. Bacteremia. 7. Bleeding from dialysis site. 8. Possible urinary tract infection. 9. pulm htn venous dupelx neg tel sinus / atrial pacing ventricula sensing talita time i have seen her she si sleeping i wounder if has obesity hypoventilation syndrome with resultant pulm htn trop neg ekg neg for ischemia beign considered for dc home soon Subjective Cardiovascular: Denies: chest pain, lightheadedness, palpitations Respiratory: Denies: shortness of breath Gastrointestinal/Abdominal: Denies: abdominal pain Genitourinary: Denies: burning Objective Last 24 Hour Vital Signs Date Time Temp Pulse Resp B/P (MAP) Pulse Ox O2 Delivery O2 Flow Rate FiO2 01/29/20 17:19 143/73 01/29/20 16:33 62 01/29/20 16:00 97.6 69 20 143/73 (96) 94 01/29/20 12:00 98.1 69 18 141/60 (87) 97 01/29/20 12:00 68 01/29/20 09:10 151/73 01/29/20 09:00 Room Air 01/29/20 08:00 68 01/29/20 08:00 98.7 66 19 151/73 (99) 97 01/29/20 04:00 66 01/29/20 04:00 98.2 72 18 145/73 (97) 96 01/29/20 02:09 153/70 01/29/20 02:09 73 153/70 (97) 01/29/20 00:08 97.9 68 20 144/67 (92) 95 01/29/20 00:04 69 01/28/20 21:00 Room Air 01/28/20 20:00 77 01/28/20 20:00 97.4 76 20 150/63 (92) 95 General Appearance: other - sleeping , but aroausable Cardiovascular: normal rate Respiratory/Chest: lungs clear Abdomen: normal bowel sounds, non tender, soft Extremities: no swelling Intake and Output 01/28/20 01/29/20 19:00 07:00 Intake Total 3080 ml Output Total 700 ml Balance 2380 ml Intake Oral 1080 ml Hemodialysis 2000 ml Output Urine Total 700 ml # Voids 2 # Bowel Movements 1 1 Laboratory Tests Test 01/29/20 08:05 White Blood Count 6.5 K/UL (4.8-10.8) Red Blood Count 3.90 M/UL (4.20-5.40) L Hemoglobin 9.6 G/DL (12.0-16.0) L Hematocrit 30.5 % (37.0-47.0) L Mean Corpuscular Volume 78 FL (80-99) L Mean Corpuscular Hemoglobin 24.7 PG (27.0-31.0) L Mean Corpuscular Hemoglobin Concent 31.6 G/DL (32.0-36.0) L Red Cell Distribution Width 16.6 % (11.6-14.8) H Platelet Count 212 K/UL (150-450) Mean Platelet Volume 5.7 FL (6.5-10.1) L Neutrophils (%) (Auto) 49.8 % (45.0-75.0) Lymphocytes (%) (Auto) 29.4 % (20.0-45.0) Monocytes (%) (Auto) 12.7 % (1.0-10.0) H Eosinophils (%) (Auto) 7.1 % (0.0-3.0) H Basophils (%) (Auto) 1.1 % (0.0-2.0) Sodium Level 130 MMOL/L (136-145) L Potassium Level 5.4 MMOL/L (3.5-5.1) H Chloride Level 91 MMOL/L (98-107) L Carbon Dioxide Level 31 MMOL/L (21-32) Anion Gap 8 mmol/L (5-15) Blood Urea Nitrogen 57 mg/dL (7-18) H Creatinine 7.0 MG/DL (0.55-1.30) H Estimat Glomerular Filtration Rate 7.2 mL/min (>60) Glucose Level 98 MG/DL (74-106) Calcium Level 9.1 MG/DL (8.5-10.1) Phosphorus Level 6.6 MG/DL (2.5-4.9) H Magnesium Level 2.5 MG/DL (1.8-2.4) H Total Bilirubin 0.5 MG/DL (0.2-1.0) Direct Bilirubin < 0.1 MG/DL (0.0-0.3) Aspartate Amino Transf (AST/SGOT) 41 U/L (15-37) H Alanine Aminotransferase (ALT/SGPT) 26 U/L (12-78) Alkaline Phosphatase 369 U/L (46-116) H C-Reactive Protein, Quantitative 0.7 mg/dL (0.00-0.90) Total Protein 7.1 G/DL (6.4-8.2) Albumin 3.4 G/DL (3.4-5.0) Random Vancomycin Level 13.2 ug/mL Wilfredo Reyna MD Jan 29, 2020 18:48
[2020-01-29] MEDS ORDERED: Vancomycin 1gm in D5W 275ml IVPB SCH (20:00)
--- NOTE | 2020-01-29 21:15 | Consultation ---
DATE OF CONSULTATION: 01/29/2020 INFECTIOUS DISEASE CONSULTATION CONSULTING PHYSICIAN: Mic Long M.D REFERRING PHYSICIAN: Roderick Henning D.O. REASON FOR CONSULTATION: Evaluation of the patient for positive blood culture. HISTORY OF PRESENT ILLNESS: The patient is a 64-year-old female who lives at home initially presented to [facility] with altered of level of consciousness. EMS checked the blood sugar and that was 56. The patient received D10 and mental status to some extent improved. The patient was found to have a positive blood culture for coag-negative staph after the patient was transferred to this medical center. Infectious Disease consultation has been requested for further evaluation of the patient and antibiotic management. The patient overall is a poor historian and much of the information is gathered through the chart and speaking to staff. PAST MEDICAL HISTORY: 1. Diabetes. 2. CHF. 3. ESRD. 4. Hypertension. 5. Obesity. ALLERGIES: No known drug allergies. SOCIAL HISTORY: The patient lives at home. FAMILY HISTORY: Noncontributing. MEDICATIONS: The patient is still on IV vancomycin. PHYSICAL EXAMINATION: VITAL SIGNS: Temperature 96, pulse 86, respiratory rate 18, blood pressure 143/73. HEENT: No pale conjunctivae. No icterus. NECK: No lymphadenopathy. CHEST: Clear. HEART: S1 and S2. ABDOMEN: Soft, obese, nontender. EXTREMITIES: No cyanosis at this time. NEUROLOGIC: Awake. LABORATORY AND DIAGNOSTIC DATA: White blood cells 6, hemoglobin 9.6, platelets 212. BUN 57, creatinine 7. Hepatitis B antigen negative. Venous Doppler negative for DVT. ASSESSMENT: 1. The patient is a 64-year-old female with positive blood culture from outside facility (the number of the cultures done is not clear). 2. In view of the patient being on hemodialysis, this could be due to infection. 3. A 2D echo from outside facility did not show any evidence of vegetation. 4. Normal white blood cells. 5. Afebrile. PLAN: 1. We will continue the patient on vancomycin, day #2. 2. Monitor CBC. 3. Monitor BMP. 4. Monitor cultures (blood). 5. We will follow the patient's cultures and based on those, we will do further recommendation. Thank you, Dr. Roderick Henning, for allowing me to participate in the care of this patient. I will follow the patient with you during this hospitalization. Mic Long M.D. DR: CLEMENTINA JOB#: [id number] CC:
[2020-01-30] VITALS (7 sets, daily range): BP systolic 131–160; BP diastolic 60–80
[2020-01-30] MEDS: HydrALAZINE 50mg tab ORAL SCH ×3 (02:14→17:55)
--- NOTE | 2020-01-30 06:22 | General Progress Note ---
Assessment/Plan Problem List: (1) Blindness of both eyes ICD Codes: H54.0 - Blindness SNOMED: 875161646 (2) Accelerated hypertension ICD Codes: I10 - Essential (primary) hypertension SNOMED: 75343015 (3) Uncontrolled diabetes mellitus ICD Codes: E11.9 - Type 2 diabetes mellitus without complications SNOMED: 619419400 (4) Hypoglycemia ICD Codes: E16.2 - Hypoglycemia, unspecified SNOMED: 601546363 Assessment/Plan: continue to hold scheduled diabetic medications hypoglycemia protocol in order low dose Novolog as needed Subjective Allergies: Coded Allergies: NO KNOWN ALLERGIES (Unverified Allergy, Unknown, 10/15/15) Subjective events noted glucose values are stable without hypoglycemia Item Value Date Time Bedside Blood Glucose 109 mg/dl 01/29/20 2100 Bedside Blood Glucose 142 mg/dl H 01/29/20 1630 Bedside Blood Glucose 141 mg/dl H 01/29/20 1324 Bedside Blood Glucose 79 mg/dl 01/29/20 0623 Objective Last 24 Hour Vital Signs Date Time Temp Pulse Resp B/P (MAP) Pulse Ox O2 Delivery O2 Flow Rate FiO2 01/30/20 04:00 60 01/30/20 04:00 97.7 61 19 143/72 (95) 95 01/30/20 02:14 160/77 01/30/20 02:14 62 160/77 (104) 01/30/20 00:00 98.1 66 19 144/76 (98) 94 01/30/20 00:00 70 01/29/20 21:00 Room Air 01/29/20 20:00 65 01/29/20 20:00 98.1 66 19 153/87 (109) 94 01/29/20 17:19 143/73 01/29/20 16:33 62 01/29/20 16:00 97.6 69 20 143/73 (96) 94 01/29/20 12:00 98.1 69 18 141/60 (87) 97 01/29/20 12:00 68 01/29/20 09:10 151/73 01/29/20 09:00 Room Air 01/29/20 08:00 68 01/29/20 08:00 98.7 66 19 151/73 (99) 97 Intake and Output 01/29/20 01/30/20 19:00 07:00 Intake Total 2000 ml Balance 2000 ml Hemodialysis 2000 ml # Voids 1 Laboratory Tests 01/29/20 08:05: White Blood Count 6.5, Red Blood Count 3.90L, Hemoglobin 9.6L, Hematocrit 30.5L , Mean Corpuscular Volume 78L, Mean Corpuscular Hemoglobin 24.7L, Mean Corpuscular Hemoglobin Concent 31.6L, Red Cell Distribution Width 16.6H, Platelet Count 212, Mean Platelet Volume 5.7L, Neutrophils (%) (Auto) 49.8, Lymphocytes (%) (Auto) 29.4, Monocytes (%) (Auto) 12.7H, Eosinophils (%) (Auto) 7.1H, Basophils (%) (Auto) 1.1, Sodium Level 130L, Potassium Level 5.4H, Chloride Level 91L, Carbon Dioxide Level 31, Anion Gap 8, Blood Urea Nitrogen 57H, Creatinine 7.0H, Estimat Glomerular Filtration Rate 7.2, Glucose Level 98, Calcium Level 9.1, Phosphorus Level 6.6H, Magnesium Level 2.5H, Total Bilirubin 0.5, Direct Bilirubin < 0.1, Aspartate Amino Transf (AST/SGOT) 41H, Alanine Aminotransferase (ALT/SGPT) 26, Alkaline Phosphatase 369H, C-Reactive Protein, Quantitative 0.7, Total Protein 7.1, Albumin 3.4, Random Vancomycin Level 13.2 Height (Feet): 5 Height (Inches): 9.00 Weight (Pounds): 268 General Appearance: no apparent distress Neck: normal alignment Cardiovascular: normal rate Respiratory/Chest: lungs clear Abdomen: normal bowel sounds Objective Current Medications Medications (Trade) Dose Ordered Sig/Josi Route PRN Reason Start Time Stop Time Status Last Admin Dose Admin Acetaminophen (Tylenol) 650 mg Q4H PRN ORAL Mild Pain/Temp > 100.5 01/25/20 15:30 02/24/20 15:29 Acetaminophen/ Hydrocodone Bitart ([place] 10/325) 1 tab Q6H PRN ORAL Pain Scale (6-10) 01/25/20 15:30 02/01/20 15:29 01/29/20 23:13 Amlodipine Besylate (Norvasc) 10 mg DAILY ORAL 01/26/20 09:00 02/25/20 08:59 01/28/20 09:43 Atorvastatin Calcium (Lipitor) 10 mg BEDTIME ORAL 01/25/20 21:00 02/24/20 20:59 01/29/20 23:14 Dextrose (Dextrose 50%) 25 ml Q30M PRN IV Hypoglycemia 01/25/20 15:30 02/24/20 15:29 Dextrose (Dextrose 50%) 50 ml Q30M PRN IV Hypoglycemia 01/25/20 15:30 02/24/20 15:29 01/25/20 16:27 Diphenhydramine HCl (Benadryl) 50 mg Q6H PRN ORAL Itching 01/25/20 15:30 02/24/20 15:29 01/28/20 04:08 Docusate Sodium (Colace) 100 mg TWICE A DAY ORAL 01/25/20 18:00 02/24/20 17:59 01/29/20 17:18 Epoetin Jose De Jesus (Epoetin Jose De Jesus(ESRD on dialysis)) 6,000 unit SUN-SUN-SUN SUBQ 01/26/20 21:00 02/25/20 20:59 01/28/20 21:34 Gabapentin (Neurontin) 300 mg THREE TIMES A DAY ORAL 01/25/20 18:00 02/24/20 17:59 01/29/20 17:19 Heparin Sodium (Porcine) (Heparin 5000 units/ml) 5,000 units EVERY 12 HOURS SUBQ 01/26/20 09:45 02/25/20 09:44 01/29/20 23:17 Hydralazine HCl (Apresoline) 25 mg Q4H PRN ORAL For High Blood Pressure 01/26/20 11:45 02/24/20 15:59 01/27/20 04:51 Hydralazine HCl (Apresoline) 100 mg Q8H ORAL 01/25/20 18:00 02/24/20 17:59 01/30/20 02:14 Insulin Aspart (NovoLOG) BEFORE MEALS AND HS SUBQ 01/25/20 16:30 02/24/20 16:29 01/29/20 16:30 Lorazepam (Ativan) 1 mg Q6H PRN ORAL For Anxiety 01/25/20 15:30 02/01/20 15:29 01/28/20 01:52 Pantoprazole (Protonix) 40 mg DAILY ORAL 01/26/20 09:00 02/25/20 08:59 01/29/20 09:04 Polyethylene Glycol (Miralax) 17 gm DAILYPRN PRN ORAL Constipation 01/25/20 15:30 02/24/20 15:29 Pyridoxine HCl (Vitamin B6) 50 mg DAILY ORAL 01/26/20 09:00 02/25/20 08:59 01/29/20 09:04 Sevelamer Carbonate (Renvela) 1,600 mg THREE TIMES A DAY ORAL 01/29/20 18:00 02/28/20 17:59 01/29/20 17:21 Thiamine HCl (Vitamin B1) 100 mg DAILY ORAL 01/26/20 11:45 02/25/20 11:44 01/29/20 09:04 Vancomycin HCl (Vanco rx to dose) 1 ea DAILY PRN MISC Per rx protocol 01/28/20 13:30 02/27/20 13:29 Zolpidem Tartrate (Ambien) 5 mg HSPRN PRN ORAL Insomnia 01/25/20 15:30 02/01/20 15:29 Franko Rogel MD Jan 30, 2020 06:22
[2020-01-30] MEDS: NovoLOG Insulin Flexpen SUBQ SCH ×4 (06:30→20:40)
[2020-01-30 06:46] LABS: BASOPHILS % (AUTO) 1.2 % (0.0-2.0); EOSINOPHILS % (AUTO) 7.3 % (0.0-3.0); HEMATOCRIT 31.3 % (37.0-47.0); HEMOGLOBIN 9.8 G/DL (12.0-16.0); LYMPHOCYTES % (AUTO) 27.2 % (20.0-45.0); MEAN CORPUSCULAR VOLUME 79 FL (80-99); MONOCYTES % (AUTO) 12.3 % (1.0-10.0); PLATELET COUNT 221 K/UL (150-450); RED BLOOD COUNT 3.96 M/UL (4.20-5.40); RED CELL DISTRIBUTION WIDTH 16.6 % (11.6-14.8); WHITE BLOOD COUNT 6.2 K/UL (4.8-10.8)
[2020-01-30 07:07] LABS: ANION GAP 14 mmol/L (5-15); BLOOD UREA NITROGEN 41 mg/dL (7-18); CALCIUM 9.5 MG/DL (8.5-10.1); CARBON DIOXIDE 22 MMOL/L (21-32); CHLORIDE 95 MMOL/L (98-107); POTASSIUM 5.2 MMOL/L (3.5-5.1); SODIUM 131 MMOL/L (136-145)
[2020-01-30] MEDS ORDERED: Sodium Polystyrene Sulfonate 15gm Powder ORAL SCH (08:00)
[2020-01-30] MEDS: Thiamine 100mg tab ORAL SCH (08:12)
[2020-01-30] MEDS: Docusate 100mg cap ORAL SCH ×2 (08:12→17:55)
[2020-01-30] MEDS: Pyridoxine 50mg tab ORAL SCH (08:12)
[2020-01-30 08:13] LABS: ALANINE AMINOTRANSFERASE 33 U/L (12-78); ALBUMIN 3.5 G/DL (3.4-5.0); ALKALINE PHOSPHATASE 401 U/L (46-116); ASPARTATE AMINO TRANSFERASE 27 U/L (15-37); BILIRUBIN,DIRECT 0.2 MG/DL (0.0-0.3); BILIRUBIN,TOTAL 0.6 MG/DL (0.2-1.0); PHOSPHORUS 5.7 MG/DL (2.5-4.9)
[2020-01-30] MEDS: Heparin 5000 units/ml inj SUBQ SCH ×2 (08:20→20:37)
--- NOTE | 2020-01-30 09:08 | Infectious Diseases Prog Note ---
Assessment/Plan Assessment/Plan ASSESSMENT: The patient is a 64-year-old female with positive blood culture CONS - (outside facility, # of the +ve cultures are not clear) - Rpt blood cx : A 2D echo from outside facility did not show any evidence of vegetation Normal white blood cells. Afebrile. Diabetes. CHF. ESRD. Hypertension. Obesity. PLAN: continue the patient on vancomycin, day # 4 ( duration to be determined ) Monitor CBC. Monitor BMP. Monitor cultures (blood) in AM Rpt 2DEcho ro Veg ( may need CLAY) not clear for DC , . Subjective Allergies: Coded Allergies: NO KNOWN ALLERGIES (Unverified Allergy, Unknown, 10/15/15) Subjective Afebrile no new complain Objective Vital Signs Last 24 Hour Vital Signs Date Time Temp Pulse Resp B/P (MAP) Pulse Ox O2 Delivery O2 Flow Rate FiO2 01/30/20 08:52 Room Air 01/30/20 08:12 60 150/77 01/30/20 08:00 97.0 60 18 150/77 (101) 98 01/30/20 08:00 66 01/30/20 04:00 60 01/30/20 04:00 97.7 61 19 143/72 (95) 95 01/30/20 02:14 160/77 01/30/20 02:14 62 160/77 (104) 01/30/20 00:00 98.1 66 19 144/76 (98) 94 01/30/20 00:00 70 01/29/20 21:00 Room Air 01/29/20 20:00 65 01/29/20 20:00 98.1 66 19 153/87 (109) 94 01/29/20 17:19 143/73 01/29/20 16:33 62 01/29/20 16:00 97.6 69 20 143/73 (96) 94 01/29/20 12:00 98.1 69 18 141/60 (87) 97 01/29/20 12:00 68 01/29/20 09:10 151/73 Height (Feet): 5 Height (Inches): 9.00 Weight (Pounds): 268 HEENT: mucous membranes moist Respiratory/Chest: no respiratory distress Cardiovascular: regular rhythm Abdomen: no organomegaly Laboratory Tests Test 01/30/20 05:50 White Blood Count 6.2 K/UL (4.8-10.8) Red Blood Count 3.96 M/UL (4.20-5.40) L Hemoglobin 9.8 G/DL (12.0-16.0) L Hematocrit 31.3 % (37.0-47.0) L Mean Corpuscular Volume 79 FL (80-99) L Mean Corpuscular Hemoglobin 24.7 PG (27.0-31.0) L Mean Corpuscular Hemoglobin Concent 31.2 G/DL (32.0-36.0) L Red Cell Distribution Width 16.6 % (11.6-14.8) H Platelet Count 221 K/UL (150-450) Mean Platelet Volume 6.5 FL (6.5-10.1) Neutrophils (%) (Auto) 52.0 % (45.0-75.0) Lymphocytes (%) (Auto) 27.2 % (20.0-45.0) Monocytes (%) (Auto) 12.3 % (1.0-10.0) H Eosinophils (%) (Auto) 7.3 % (0.0-3.0) H Basophils (%) (Auto) 1.2 % (0.0-2.0) Sodium Level 131 MMOL/L (136-145) L Potassium Level 5.2 MMOL/L (3.5-5.1) H Chloride Level 95 MMOL/L (98-107) L Carbon Dioxide Level 22 MMOL/L (21-32) Anion Gap 14 mmol/L (5-15) Blood Urea Nitrogen 41 mg/dL (7-18) H Creatinine 6.0 MG/DL (0.55-1.30) H Estimat Glomerular Filtration Rate 8.6 mL/min (>60) Glucose Level 127 MG/DL (74-106) H Calcium Level 9.5 MG/DL (8.5-10.1) Phosphorus Level 5.7 MG/DL (2.5-4.9) H Magnesium Level 2.4 MG/DL (1.8-2.4) Total Bilirubin 0.6 MG/DL (0.2-1.0) Direct Bilirubin 0.2 MG/DL (0.0-0.3) Aspartate Amino Transf (AST/SGOT) 27 U/L (15-37) Alanine Aminotransferase (ALT/SGPT) 33 U/L (12-78) Alkaline Phosphatase 401 U/L (46-116) H Total Protein 7.5 G/DL (6.4-8.2) Albumin 3.5 G/DL (3.4-5.0) Current Medications Medications (Trade) Dose Ordered Sig/Josi Route PRN Reason Start Time Stop Time Status Last Admin Dose Admin Acetaminophen (Tylenol) 650 mg Q4H PRN ORAL Mild Pain/Temp > 100.5 01/25/20 15:30 02/24/20 15:29 Acetaminophen/ Hydrocodone Bitart ([place] 10/325) 1 tab Q6H PRN ORAL Pain Scale (6-10) 01/25/20 15:30 02/01/20 15:29 01/29/20 23:13 Amlodipine Besylate (Norvasc) 10 mg DAILY ORAL 01/26/20 09:00 02/25/20 08:59 01/30/20 08:12 Atorvastatin Calcium (Lipitor) 10 mg BEDTIME ORAL 01/25/20 21:00 02/24/20 20:59 01/29/20 23:14 Dextrose (Dextrose 50%) 25 ml Q30M PRN IV Hypoglycemia 01/25/20 15:30 02/24/20 15:29 Dextrose (Dextrose 50%) 50 ml Q30M PRN IV Hypoglycemia 01/25/20 15:30 02/24/20 15:29 01/25/20 16:27 Diphenhydramine HCl (Benadryl) 50 mg Q6H PRN ORAL Itching 01/25/20 15:30 02/24/20 15:29 01/30/20 06:22 Docusate Sodium (Colace) 100 mg TWICE A DAY ORAL 01/25/20 18:00 02/24/20 17:59 01/30/20 08:12 Epoetin Jose De Jesus (Epoetin Jose De Jesus(ESRD on dialysis)) 6,000 unit SUN-SUN-SUN SUBQ 01/26/20 21:00 02/25/20 20:59 01/28/20 21:34 Gabapentin (Neurontin) 300 mg THREE TIMES A DAY ORAL 01/25/20 18:00 02/24/20 17:59 01/30/20 08:12 Heparin Sodium (Porcine) (Heparin 5000 units/ml) 5,000 units EVERY 12 HOURS SUBQ 01/26/20 09:45 02/25/20 09:44 01/30/20 08:20 Hydralazine HCl (Apresoline) 25 mg Q4H PRN ORAL For High Blood Pressure 01/26/20 11:45 02/24/20 15:59 01/27/20 04:51 Hydralazine HCl (Apresoline) 100 mg Q8H ORAL 01/25/20 18:00 02/24/20 17:59 01/30/20 02:14 Insulin Aspart (NovoLOG) BEFORE MEALS AND HS SUBQ 01/25/20 16:30 02/24/20 16:29 01/29/20 16:30 Lorazepam (Ativan) 1 mg Q6H PRN ORAL For Anxiety 01/25/20 15:30 02/01/20 15:29 01/28/20 01:52 Pantoprazole (Protonix) 40 mg DAILY ORAL 01/26/20 09:00 02/25/20 08:59 01/30/20 08:12 Polyethylene Glycol (Miralax) 17 gm DAILYPRN PRN ORAL Constipation 01/25/20 15:30 02/24/20 15:29 Pyridoxine HCl (Vitamin B6) 50 mg DAILY ORAL 01/26/20 09:00 02/25/20 08:59 01/30/20 08:12 Sevelamer Carbonate (Renvela) 1,600 mg THREE TIMES A DAY ORAL 01/29/20 18:00 02/28/20 17:59 01/30/20 08:12 Thiamine HCl (Vitamin B1) 100 mg DAILY ORAL 01/26/20 11:45 02/25/20 11:44 01/30/20 08:12 Vancomycin HCl (Vanco rx to dose) 1 ea DAILY PRN MISC Per rx protocol 01/28/20 13:30 02/27/20 13:29 Zolpidem Tartrate (Ambien) 5 mg HSPRN PRN ORAL Insomnia 01/25/20 15:30 02/01/20 15:29 Mic Long MD Jan 30, 2020 09:08
--- NOTE | 2020-01-30 09:08 | General Progress Note ---
Assessment/Plan Assessment/Plan: (1) Morbid Obesity (2) Lumbar DDD (3) Lumbar Spondylosis (4) Lumbar Radiculopathy (5) Peripheral Neuropathy Patient to be continued on Creola D/w Dr. Santiago and he concurred. Subjective Date patient seen: Jan 30, 2020 Time patient seen: 08:15 - am Allergies: Coded Allergies: NO KNOWN ALLERGIES (Unverified Allergy, Unknown, 10/15/15) Subjective Constitutional: Reports: no symptoms Eye: Reports: blurred vision ENT: Reports: no symptoms Respiratory: Reports: no symptoms Cardiovascular: Reports: no symptoms Gastrointestinal: Reports: no symptoms Genitourinary: Reports: no symptoms Musculoskeletal: Reports: back pain Skin: Reports: no symptoms Psychiatric: Reports: no symptoms Neurological: Reports: tingling, focal weakness Endocrine: Reports: no symptoms Hematologic/Lymphatic: Reports: no symptoms SUBJECTIVE: No changes, Pain has been tolerated on the [place]. She is in bed and has no signs of pain or distress at this time. Objective Last 24 Hour Vital Signs Date Time Temp Pulse Resp B/P (MAP) Pulse Ox O2 Delivery O2 Flow Rate FiO2 01/30/20 08:52 Room Air 01/30/20 08:12 60 150/77 01/30/20 08:00 97.0 60 18 150/77 (101) 98 01/30/20 08:00 66 01/30/20 04:00 60 01/30/20 04:00 97.7 61 19 143/72 (95) 95 01/30/20 02:14 160/77 01/30/20 02:14 62 160/77 (104) 01/30/20 00:00 98.1 66 19 144/76 (98) 94 01/30/20 00:00 70 01/29/20 21:00 Room Air 01/29/20 20:00 65 01/29/20 20:00 98.1 66 19 153/87 (109) 94 01/29/20 17:19 143/73 01/29/20 16:33 62 01/29/20 16:00 97.6 69 20 143/73 (96) 94 01/29/20 12:00 98.1 69 18 141/60 (87) 97 01/29/20 12:00 68 01/29/20 09:10 151/73 Intake and Output 01/29/20 01/30/20 19:00 07:00 Intake Total 2250 ml Balance 2250 ml Intake Oral 250 ml Hemodialysis 2000 ml # Voids 1 Laboratory Tests 01/30/20 05:50: White Blood Count 6.2, Red Blood Count 3.96L, Hemoglobin 9.8L, Hematocrit 31.3L , Mean Corpuscular Volume 79L, Mean Corpuscular Hemoglobin 24.7L, Mean Corpuscular Hemoglobin Concent 31.2L, Red Cell Distribution Width 16.6H, Platelet Count 221, Mean Platelet Volume 6.5, Neutrophils (%) (Auto) 52.0, Lymphocytes (%) (Auto) 27.2, Monocytes (%) (Auto) 12.3H, Eosinophils (%) (Auto) 7.3H, Basophils (%) (Auto) 1.2, Sodium Level 131L, Potassium Level 5.2H, Chloride Level 95L, Carbon Dioxide Level 22, Anion Gap 14, Blood Urea Nitrogen 41H, Creatinine 6.0H, Estimat Glomerular Filtration Rate 8.6, Glucose Level 127H , Calcium Level 9.5, Phosphorus Level 5.7H, Magnesium Level 2.4, Total Bilirubin 0.6, Direct Bilirubin 0.2, Aspartate Amino Transf (AST/SGOT) 27, Alanine Aminotransferase (ALT/SGPT) 33, Alkaline Phosphatase 401H, Total Protein 7.5, Albumin 3.5 Height (Feet): 5 Height (Inches): 9.00 Weight (Pounds): 268 Objective General Appearance: no apparent distress, alert HEENT: normocephalic, atraumatic Neck: non-tender, normal alignment Respiratory/Chest: decreased breath sounds Cardiovascular/Chest: normal rate, regular rhythm Abdomen: non tender, soft Extremities: non-tender Neurologic: alert, responsive Johnnie Isidro Jan 30, 2020 09:08
--- NOTE | 2020-01-30 09:22 | Nephrology Progress Note ---
Assessment/Plan Problem List: (1) ESRD (end stage renal disease) on dialysis (2) Hypoglycemia (3) Diabetes (4) Anemia (5) Patient is Druze (6) Pacemaker (7) Obese (8) HTN (hypertension) Assessment End stage renal disease on dialysis. Has a right upper arm dialysis fistula as Acces . Getting dialysis Sunday. acute encephalopathy due to hypoglycemia h/o UTI (urinary tract infection) & Pyelonephritis morbid obesity Anemia / Jehova's witness CAD previous stent HTN- hypertensive urgency upon arrival to [facility]. s/p AVG DM 2 bilateral eye blindness h/o CHF Pacemaker Plan Kayexalate for high potassium today Dialysis 01/30 EPO, thiamin and b6 Phos binders diet to renal , medium CHO per consultants Subjective ROS Limited/Unobtainable: No Constitutional: Reports: malaise Objective Objective Last 24 Hour Vital Signs Date Time Temp Pulse Resp B/P (MAP) Pulse Ox O2 Delivery O2 Flow Rate FiO2 01/30/20 08:52 Room Air 01/30/20 08:12 60 150/77 01/30/20 08:00 97.0 60 18 150/77 (101) 98 01/30/20 08:00 66 01/30/20 04:00 60 01/30/20 04:00 97.7 61 19 143/72 (95) 95 01/30/20 02:14 160/77 01/30/20 02:14 62 160/77 (104) 01/30/20 00:00 98.1 66 19 144/76 (98) 94 01/30/20 00:00 70 01/29/20 21:00 Room Air 01/29/20 20:00 65 01/29/20 20:00 98.1 66 19 153/87 (109) 94 01/29/20 17:19 143/73 01/29/20 16:33 62 01/29/20 16:00 97.6 69 20 143/73 (96) 94 01/29/20 12:00 98.1 69 18 141/60 (87) 97 01/29/20 12:00 68 Intake and Output 01/29/20 01/30/20 19:00 07:00 Intake Total 2250 ml Balance 2250 ml Intake Oral 250 ml Hemodialysis 2000 ml # Voids 1 Laboratory Tests 01/30/20 05:50: White Blood Count 6.2, Red Blood Count 3.96L, Hemoglobin 9.8L, Hematocrit 31.3L , Mean Corpuscular Volume 79L, Mean Corpuscular Hemoglobin 24.7L, Mean Corpuscular Hemoglobin Concent 31.2L, Red Cell Distribution Width 16.6H, Platelet Count 221, Mean Platelet Volume 6.5, Neutrophils (%) (Auto) 52.0, Lymphocytes (%) (Auto) 27.2, Monocytes (%) (Auto) 12.3H, Eosinophils (%) (Auto) 7.3H, Basophils (%) (Auto) 1.2, Sodium Level 131L, Potassium Level 5.2H, Chloride Level 95L, Carbon Dioxide Level 22, Anion Gap 14, Blood Urea Nitrogen 41H, Creatinine 6.0H, Estimat Glomerular Filtration Rate 8.6, Glucose Level 127H , Calcium Level 9.5, Phosphorus Level 5.7H, Magnesium Level 2.4, Total Bilirubin 0.6, Direct Bilirubin 0.2, Aspartate Amino Transf (AST/SGOT) 27, Alanine Aminotransferase (ALT/SGPT) 33, Alkaline Phosphatase 401H, Total Protein 7.5, Albumin 3.5 Height (Feet): 5 Height (Inches): 9.00 Weight (Pounds): 268 General Appearance: no apparent distress Respiratory/Chest: decreased breath sounds Abdomen: distended Objective no change Bryan Hunter MD Jan 30, 2020 09:22
--- NOTE | 2020-01-30 09:47 | General Progress Note ---
Assessment/Plan Problem List: (1) HTN (hypertension) ICD Codes: I10 - Essential (primary) hypertension SNOMED: 85721265 (2) Anemia ICD Codes: D64.9 - Anemia, unspecified SNOMED: 582723042 (3) Diabetes ICD Codes: E11.9 - Type 2 diabetes mellitus without complications SNOMED: 91221383 (4) HTN (hypertension) ICD Codes: I10 - Essential (primary) hypertension SNOMED: 48439186 (5) Pacemaker ICD Codes: Z95.0 - Presence of cardiac pacemaker SNOMED: 540815432 (6) Coronary artery disease ICD Codes: I25.10 - Coronary artery disease SNOMED: 34455080 (7) Uncontrolled diabetes mellitus ICD Codes: E11.9 - Type 2 diabetes mellitus without complications SNOMED: 800118389 (8) Intractable back pain ICD Codes: M54.9 - Dorsalgia, unspecified SNOMED: 426299764 Status: progressing Assessment/Plan: pacemaker cad arrythmia afebrile reviewed chart and labs htn no cp no sob Subjective ROS Limited/Unobtainable: Yes Allergies: Coded Allergies: NO KNOWN ALLERGIES (Unverified Allergy, Unknown, 10/15/15) Objective Last 24 Hour Vital Signs Date Time Temp Pulse Resp B/P (MAP) Pulse Ox O2 Delivery O2 Flow Rate FiO2 01/30/20 08:52 Room Air 01/30/20 08:12 60 150/77 01/30/20 08:00 97.0 60 18 150/77 (101) 98 01/30/20 08:00 66 01/30/20 04:00 60 01/30/20 04:00 97.7 61 19 143/72 (95) 95 01/30/20 02:14 160/77 01/30/20 02:14 62 160/77 (104) 01/30/20 00:00 98.1 66 19 144/76 (98) 94 01/30/20 00:00 70 01/29/20 21:00 Room Air 01/29/20 20:00 65 01/29/20 20:00 98.1 66 19 153/87 (109) 94 01/29/20 17:19 143/73 01/29/20 16:33 62 01/29/20 16:00 97.6 69 20 143/73 (96) 94 01/29/20 12:00 98.1 69 18 141/60 (87) 97 01/29/20 12:00 68 Intake and Output 01/29/20 01/30/20 19:00 07:00 Intake Total 2250 ml Balance 2250 ml Intake Oral 250 ml Hemodialysis 2000 ml # Voids 1 Laboratory Tests 01/30/20 05:50: White Blood Count 6.2, Red Blood Count 3.96L, Hemoglobin 9.8L, Hematocrit 31.3L , Mean Corpuscular Volume 79L, Mean Corpuscular Hemoglobin 24.7L, Mean Corpuscular Hemoglobin Concent 31.2L, Red Cell Distribution Width 16.6H, Platelet Count 221, Mean Platelet Volume 6.5, Neutrophils (%) (Auto) 52.0, Lymphocytes (%) (Auto) 27.2, Monocytes (%) (Auto) 12.3H, Eosinophils (%) (Auto) 7.3H, Basophils (%) (Auto) 1.2, Sodium Level 131L, Potassium Level 5.2H, Chloride Level 95L, Carbon Dioxide Level 22, Anion Gap 14, Blood Urea Nitrogen 41H, Creatinine 6.0H, Estimat Glomerular Filtration Rate 8.6, Glucose Level 127H , Calcium Level 9.5, Phosphorus Level 5.7H, Magnesium Level 2.4, Total Bilirubin 0.6, Direct Bilirubin 0.2, Aspartate Amino Transf (AST/SGOT) 27, Alanine Aminotransferase (ALT/SGPT) 33, Alkaline Phosphatase 401H, Total Protein 7.5, Albumin 3.5 Height (Feet): 5 Height (Inches): 9.00 Weight (Pounds): 268 Neck: supple Cardiovascular: normal rate Respiratory/Chest: lungs clear Abdomen: soft Magdiel Gaming MD Jan 30, 2020 09:46
--- NOTE | 2020-01-30 10:56 | Pulmonology Progress Note ---
Assessment/Plan Problems: (1) Bacteremia (2) Accelerated hypertension (3) Uncontrolled diabetes mellitus (4) Hypoglycemia (5) Intractable back pain (6) ESRD (end stage renal disease) on dialysis (7) Lumbar radiculopathy (8) Coronary artery disease (9) Morbid obesity (10) Blindness of both eyes Assessment/Plan f/u blood culture results teli records reviewed, sinus BP better no new complains doing better Bs better mental status improving BP becoming more stable HD by nephrology sliding scale diabetic diet f/u cardio and renal recommendations. Subjective ROS Limited/Unobtainable: No Constitutional: Reports: no symptoms HEENT: Repors: no symptoms Respiratory: Reports: no symptoms Allergies: Coded Allergies: NO KNOWN ALLERGIES (Unverified Allergy, Unknown, 10/15/15) Objective Last 24 Hour Vital Signs Date Time Temp Pulse Resp B/P (MAP) Pulse Ox O2 Delivery O2 Flow Rate FiO2 01/30/20 08:52 Room Air 01/30/20 08:12 60 150/77 01/30/20 08:00 97.0 60 18 150/77 (101) 98 01/30/20 08:00 66 01/30/20 04:00 60 01/30/20 04:00 97.7 61 19 143/72 (95) 95 01/30/20 02:14 160/77 01/30/20 02:14 62 160/77 (104) 01/30/20 00:00 98.1 66 19 144/76 (98) 94 01/30/20 00:00 70 01/29/20 21:00 Room Air 01/29/20 20:00 65 01/29/20 20:00 98.1 66 19 153/87 (109) 94 01/29/20 17:19 143/73 01/29/20 16:33 62 01/29/20 16:00 97.6 69 20 143/73 (96) 94 01/29/20 12:00 98.1 69 18 141/60 (87) 97 01/29/20 12:00 68 Intake and Output 01/29/20 01/30/20 19:00 07:00 Intake Total 2250 ml Balance 2250 ml Intake Oral 250 ml Hemodialysis 2000 ml # Voids 1 Objective no new complains General Appearance: WD/WN HEENT: normocephalic, atraumatic Respiratory/Chest: chest wall non-tender, lungs clear Breasts: no masses Cardiovascular: normal peripheral pulses Abdomen: normal bowel sounds, soft, non tender, no organomegaly Laboratory Tests 01/30/20 05:50: White Blood Count 6.2, Red Blood Count 3.96L, Hemoglobin 9.8L, Hematocrit 31.3L , Mean Corpuscular Volume 79L, Mean Corpuscular Hemoglobin 24.7L, Mean Corpuscular Hemoglobin Concent 31.2L, Red Cell Distribution Width 16.6H, Platelet Count 221, Mean Platelet Volume 6.5, Neutrophils (%) (Auto) 52.0, Lymphocytes (%) (Auto) 27.2, Monocytes (%) (Auto) 12.3H, Eosinophils (%) (Auto) 7.3H, Basophils (%) (Auto) 1.2, Sodium Level 131L, Potassium Level 5.2H, Chloride Level 95L, Carbon Dioxide Level 22, Anion Gap 14, Blood Urea Nitrogen 41H, Creatinine 6.0H, Estimat Glomerular Filtration Rate 8.6, Glucose Level 127H , Calcium Level 9.5, Phosphorus Level 5.7H, Magnesium Level 2.4, Total Bilirubin 0.6, Direct Bilirubin 0.2, Aspartate Amino Transf (AST/SGOT) 27, Alanine Aminotransferase (ALT/SGPT) 33, Alkaline Phosphatase 401H, Total Protein 7.5, Albumin 3.5 Current Medications Medications (Trade) Dose Ordered Sig/Josi Route PRN Reason Start Time Stop Time Status Last Admin Dose Admin Acetaminophen (Tylenol) 650 mg Q4H PRN ORAL Mild Pain/Temp > 100.5 01/25/20 15:30 02/24/20 15:29 Acetaminophen/ Hydrocodone Bitart ([place] 10/325) 1 tab Q6H PRN ORAL Pain Scale (6-10) 01/25/20 15:30 02/01/20 15:29 01/29/20 23:13 Amlodipine Besylate (Norvasc) 10 mg DAILY ORAL 01/26/20 09:00 02/25/20 08:59 01/30/20 08:12 Atorvastatin Calcium (Lipitor) 10 mg BEDTIME ORAL 01/25/20 21:00 02/24/20 20:59 01/29/20 23:14 Dextrose (Dextrose 50%) 25 ml Q30M PRN IV Hypoglycemia 01/25/20 15:30 02/24/20 15:29 Dextrose (Dextrose 50%) 50 ml Q30M PRN IV Hypoglycemia 01/25/20 15:30 02/24/20 15:29 01/25/20 16:27 Diphenhydramine HCl (Benadryl) 50 mg Q6H PRN ORAL Itching 01/25/20 15:30 02/24/20 15:29 01/30/20 06:22 Docusate Sodium (Colace) 100 mg TWICE A DAY ORAL 01/25/20 18:00 02/24/20 17:59 01/30/20 08:12 Epoetin Jose De Jesus (Epoetin Jose De Jesus(ESRD on dialysis)) 6,000 unit SUN-SUN-SUN SUBQ 01/26/20 21:00 02/25/20 20:59 01/28/20 21:34 Gabapentin (Neurontin) 300 mg THREE TIMES A DAY ORAL 01/25/20 18:00 02/24/20 17:59 01/30/20 08:12 Heparin Sodium (Porcine) (Heparin 5000 units/ml) 5,000 units EVERY 12 HOURS SUBQ 01/26/20 09:45 02/25/20 09:44 01/30/20 08:20 Hydralazine HCl (Apresoline) 25 mg Q4H PRN ORAL For High Blood Pressure 01/26/20 11:45 02/24/20 15:59 01/27/20 04:51 Hydralazine HCl (Apresoline) 100 mg Q8H ORAL 01/25/20 18:00 02/24/20 17:59 01/30/20 02:14 Insulin Aspart (NovoLOG) BEFORE MEALS AND HS SUBQ 01/25/20 16:30 02/24/20 16:29 01/29/20 16:30 Lorazepam (Ativan) 1 mg Q6H PRN ORAL For Anxiety 01/25/20 15:30 02/01/20 15:29 01/28/20 01:52 Pantoprazole (Protonix) 40 mg DAILY ORAL 01/26/20 09:00 02/25/20 08:59 01/30/20 08:12 Polyethylene Glycol (Miralax) 17 gm DAILYPRN PRN ORAL Constipation 01/25/20 15:30 02/24/20 15:29 Pyridoxine HCl (Vitamin B6) 50 mg DAILY ORAL 01/26/20 09:00 02/25/20 08:59 01/30/20 08:12 Sevelamer Carbonate (Renvela) 1,600 mg THREE TIMES A DAY ORAL 01/29/20 18:00 02/28/20 17:59 01/30/20 08:12 Thiamine HCl (Vitamin B1) 100 mg DAILY ORAL 01/26/20 11:45 02/25/20 11:44 01/30/20 08:12 Vancomycin HCl (Vanco rx to dose) 1 ea DAILY PRN MISC Per rx protocol 01/28/20 13:30 02/27/20 13:29 Vancomycin HCl 1 gm/Dextrose 275 ml @ 183.708 mls/hr ONCE ONCE IVPB 01/31/20 21:00 01/31/20 22:29 Zolpidem Tartrate (Ambien) 5 mg HSPRN PRN ORAL Insomnia 01/25/20 15:30 02/01/20 15:29 Meghana Murillo MD Jan 30, 2020 10:56
[2020-01-30] MEDS ORDERED: Vancomycin 750mg/NS 275ml IVPB ONE ×2 (11:00)
[2020-01-30] MEDS ORDERED: HYDROcodone/Acetamin 10/325 tab ORAL PRN (19:00)
[2020-01-30] MEDS ORDERED: LORazepam 1mg tab ORAL PRN (19:00)
[2020-01-30] MEDS ORDERED: HydrALAZINE 50mg tab ORAL PRN (19:00)
[2020-01-30] MEDS: Epoetin Alfa-EPBX(ESRD on dialysis)3000 units/ml vial SUBQ SCH (20:32)
[2020-01-31] VITALS: BP 150/78
[2020-01-31] MEDS: HydrALAZINE 50mg tab ORAL SCH ×3 (01:45→17:48)
[2020-01-31 04:00] VITALS: BP 154/70
[2020-01-31] MEDS: NovoLOG Insulin Flexpen SUBQ SCH ×4 (06:03→20:40)
[2020-01-31 08:00] VITALS: BP 150/64
[2020-01-31] MEDS: Docusate 100mg cap ORAL SCH ×2 (08:46→17:02)
[2020-01-31] MEDS: Pyridoxine 50mg tab ORAL SCH (08:47)
[2020-01-31] MEDS: Thiamine 100mg tab ORAL SCH (08:47)
[2020-01-31] MEDS: Heparin 5000 units/ml inj SUBQ SCH ×2 (08:48→20:39)
--- NOTE | 2020-01-31 10:06 | Infectious Diseases Prog Note ---
Assessment/Plan Assessment/Plan ASSESSMENT: The patient is a 64-year-old female with positive blood culture CONS 01/27 Bc: Staph spp - (outside facility, # of the +ve cultures are not clear) - Rpt blood cx : A 2D echo from outside facility did not show any evidence of vegetation Normal white blood cells. Afebrile. Diabetes. CHF. ESRD. Hypertension. Obesity. PLAN: continue the patient on vancomycin, day # 5 ( duration to be determined ) Monitor CBC. Monitor BMP. Monitor cultures (blood) 01/24 Rpt 2DEcho ro Veg ( may need CLAY) . Subjective Allergies: Coded Allergies: NO KNOWN ALLERGIES (Unverified Allergy, Unknown, 10/15/15) Subjective Afebrile no acute event Objective Vital Signs Last 24 Hour Vital Signs Date Time Temp Pulse Resp B/P (MAP) Pulse Ox O2 Delivery O2 Flow Rate FiO2 01/31/20 08:00 98.2 66 20 150/64 (92) 99 01/31/20 04:00 97.9 62 20 154/70 (98) 96 01/31/20 01:45 150/78 01/31/20 00:00 97.4 71 21 150/78 (102) 96 01/30/20 21:00 Room Air 01/30/20 20:31 156/71 01/30/20 20:00 97.3 62 20 156/71 (99) 95 01/30/20 17:55 131/80 01/30/20 16:00 97.7 64 20 131/80 (97) 97 01/30/20 12:00 98.1 66 20 140/60 (86) 98 01/30/20 11:32 140/60 Height (Feet): 5 Height (Inches): 9.00 Weight (Pounds): 268 HEENT: anicteric Respiratory/Chest: no respiratory distress Cardiovascular: regular rhythm Abdomen: no organomegaly Microbiology Date/Time Source Procedure Growth Status 01/28/20 19:45 Blood Blood Culture - Preliminary Staphylococcus Species Resulted 01/28/20 19:30 Blood Blood Culture - Preliminary Staphylococcus Species Resulted Current Medications Medications (Trade) Dose Ordered Sig/Josi Route PRN Reason Start Time Stop Time Status Last Admin Dose Admin Acetaminophen (Tylenol) 650 mg Q4H PRN ORAL Mild Pain/Temp > 100.5 01/30/20 19:00 02/24/20 18:59 Acetaminophen/ Hydrocodone Bitart ([place] 10/325) 1 tab Q6H PRN ORAL Pain Scale (6-10) 01/30/20 19:00 02/01/20 18:59 01/30/20 22:47 Amlodipine Besylate (Norvasc) 10 mg DAILY ORAL 01/31/20 09:00 02/25/20 08:59 Atorvastatin Calcium (Lipitor) 10 mg BEDTIME ORAL 01/30/20 21:00 02/24/20 20:59 01/30/20 20:31 Dextrose (Dextrose 50%) 25 ml Q30M PRN IV Hypoglycemia 01/30/20 19:00 02/24/20 18:59 Dextrose (Dextrose 50%) 50 ml Q30M PRN IV Hypoglycemia 01/30/20 19:00 02/24/20 18:59 Diphenhydramine HCl (Benadryl) 50 mg Q6H PRN ORAL Itching 01/30/20 19:00 02/24/20 18:59 Docusate Sodium (Colace) 100 mg TWICE A DAY ORAL 01/31/20 09:00 02/24/20 17:59 01/31/20 08:46 Epoetin Jose De Jesus (Epoetin Jose De Jesus(ESRD on dialysis)) 6,000 unit SUN-SUN-SUN SUBQ 01/30/20 21:00 02/25/20 20:59 01/30/20 20:32 Gabapentin (Neurontin) 300 mg THREE TIMES A DAY ORAL 01/31/20 09:00 02/24/20 17:59 01/31/20 08:47 Heparin Sodium (Porcine) (Heparin 5000 units/ml) 5,000 units EVERY 12 HOURS SUBQ 01/30/20 21:00 02/25/20 09:44 01/31/20 08:48 Hydralazine HCl (Apresoline) 25 mg Q4H PRN ORAL For High Blood Pressure 01/30/20 19:00 02/24/20 18:59 01/30/20 20:31 Hydralazine HCl (Apresoline) 100 mg Q8H ORAL 01/31/20 02:00 02/24/20 17:59 01/31/20 01:45 Insulin Aspart (NovoLOG) BEFORE MEALS AND HS SUBQ 01/30/20 21:00 02/24/20 16:29 01/30/20 20:40 Lorazepam (Ativan) 1 mg Q6H PRN ORAL For Anxiety 01/30/20 19:00 02/01/20 18:59 Pantoprazole (Protonix) 40 mg DAILY ORAL 01/31/20 09:00 02/25/20 08:59 01/31/20 08:47 Polyethylene Glycol (Miralax) 17 gm DAILYPRN PRN ORAL Constipation 01/30/20 19:00 02/29/20 18:59 Pyridoxine HCl (Vitamin B6) 50 mg DAILY ORAL 01/31/20 09:00 02/25/20 08:59 01/31/20 08:47 Sevelamer Carbonate (Renvela) 1,600 mg THREE TIMES A DAY ORAL 01/31/20 09:00 02/28/20 17:59 01/31/20 08:47 Thiamine HCl (Vitamin B1) 100 mg DAILY ORAL 01/31/20 09:00 02/25/20 11:44 01/31/20 08:47 Vancomycin HCl (Vanco rx to dose) 1 ea DAILY PRN MISC Per rx protocol 01/30/20 19:00 02/29/20 18:59 Zolpidem Tartrate (Ambien) 5 mg HSPRN PRN ORAL Insomnia 01/31/20 21:00 02/01/20 20:59 Mic Long MD Jan 31, 2020 10:06
--- NOTE | 2020-01-31 10:55 | Pulmonology Progress Note ---
Assessment/Plan Assessment/Plan ASSESSMENT HTN urgency initially -resolved bacteremia acute metabolic encephalopathy due to hypoglycemia -resolved DM with recurrent hypoglycemia/[id number] ESRD, on HD electrolyte abnormalities pacemaker anemia of chronic disease Jepaulvah witness bilateral blindness morbid obesity intractable back pain lumbar radiculopathy PLAN OF CARE MS floor BP management with current regimen and optimize further treatment as needed HD due today, monitor volumes, lytes, renal parameters ; no evidence of volume overload BCX + Staph species abx per ID/Vanco prior BCX from OSH also positive ECHO 01/24 no evidence of vegetation pEF 60-65% and RVSP of 75 c/w severe pulm HTNm, moderate MR and TR fup with BCX for clearance may need CLAY cardio on board O2 HHN prn CXR stable Venous Duplex negative, SCD, hold heparin given tendency to become very anemic, and unable to transfuse fall precautions monitor HH , no blood transfusion, given Sonja morocho started on EPO pain management DVT GI prophayxlis assist with meals supportive care bowel regimen case discussed and evaluated by supervising physician Subjective Allergies: Coded Allergies: NO KNOWN ALLERGIES (Unverified Allergy, Unknown, 10/15/15) Subjective HD pending for today mental status improved BP stabilized no signs of resp distress BCX + Staph no fevers, no leukocytosis Objective Last 24 Hour Vital Signs Date Time Temp Pulse Resp B/P (MAP) Pulse Ox O2 Delivery O2 Flow Rate FiO2 01/31/20 09:00 Room Air 01/31/20 08:00 98.2 66 20 150/64 (92) 99 01/31/20 04:00 97.9 62 20 154/70 (98) 96 01/31/20 01:45 150/78 01/31/20 00:00 97.4 71 21 150/78 (102) 96 01/30/20 21:00 Room Air 01/30/20 20:31 156/71 01/30/20 20:00 97.3 62 20 156/71 (99) 95 01/30/20 17:55 131/80 01/30/20 16:00 97.7 64 20 131/80 (97) 97 01/30/20 12:00 98.1 66 20 140/60 (86) 98 01/30/20 11:32 140/60 Intake and Output 01/30/20 01/31/20 19:00 07:00 Intake Total 300 ml 500 ml Balance 300 ml 500 ml Intake Oral 300 ml 500 ml # Voids 1 # Bowel Movements 1 Objective General Appearance: morbidly obese AA female in NAD, awake, Lines, tubes and drains: peripheral HEENT: normocephalic, atraumatic, anicteric, mucous membranes moist, bilateral blindness Respiratory/Chest: chest wall non-tender, no respiratory distress, no accessory muscle use, crackles/rales, other - BS clear with decreased air exchange Cardiovascular/Chest: normal rate, pacemaker/AICD - A pacing, pacemaker Left upper chest Abdomen: normal bowel sounds, soft , obese Extremities: non-tender, no calf tenderness, no leg edema, + 1 bilateral hand edema Skin Exam: warm/dry Neurologic: abnormal gait, responsive Musculoskeletal: atrophy Microbiology Date/Time Source Procedure Growth Status 01/28/20 19:45 Blood Blood Culture - Preliminary Staphylococcus Species Resulted 01/28/20 19:30 Blood Blood Culture - Preliminary Staphylococcus Species Resulted Current Medications Medications (Trade) Dose Ordered Sig/Josi Route PRN Reason Start Time Stop Time Status Last Admin Dose Admin Acetaminophen (Tylenol) 650 mg Q4H PRN ORAL Mild Pain/Temp > 100.5 01/30/20 19:00 02/24/20 18:59 Acetaminophen/ Hydrocodone Bitart ([place] 10/325) 1 tab Q6H PRN ORAL Pain Scale (6-10) 01/31/20 11:00 02/02/20 10:59 Amlodipine Besylate (Norvasc) 10 mg DAILY ORAL 01/31/20 09:00 02/25/20 08:59 Atorvastatin Calcium (Lipitor) 10 mg BEDTIME ORAL 01/30/20 21:00 02/24/20 20:59 01/30/20 20:31 Dextrose (Dextrose 50%) 25 ml Q30M PRN IV Hypoglycemia 01/30/20 19:00 02/24/20 18:59 Dextrose (Dextrose 50%) 50 ml Q30M PRN IV Hypoglycemia 01/30/20 19:00 02/24/20 18:59 Diphenhydramine HCl (Benadryl) 50 mg Q6H PRN ORAL Itching 01/30/20 19:00 02/24/20 18:59 Docusate Sodium (Colace) 100 mg TWICE A DAY ORAL 01/31/20 09:00 02/24/20 17:59 01/31/20 08:46 Epoetin Jose De Jesus (Epoetin Jose De Jesus(ESRD on dialysis)) 6,000 unit SUN-SUN-SUN SUBQ 01/30/20 21:00 02/25/20 20:59 01/30/20 20:32 Gabapentin (Neurontin) 300 mg THREE TIMES A DAY ORAL 01/31/20 09:00 02/24/20 17:59 01/31/20 08:47 Heparin Sodium (Porcine) (Heparin 5000 units/ml) 5,000 units EVERY 12 HOURS SUBQ 01/30/20 21:00 02/25/20 09:44 01/31/20 08:48 Hydralazine HCl (Apresoline) 25 mg Q4H PRN ORAL For High Blood Pressure 01/30/20 19:00 02/24/20 18:59 01/30/20 20:31 Hydralazine HCl (Apresoline) 100 mg Q8H ORAL 01/31/20 02:00 02/24/20 17:59 01/31/20 01:45 Insulin Aspart (NovoLOG) BEFORE MEALS AND HS SUBQ 01/30/20 21:00 02/24/20 16:29 01/30/20 20:40 Lorazepam (Ativan) 1 mg Q6H PRN ORAL For Anxiety 01/30/20 19:00 02/01/20 18:59 Pantoprazole (Protonix) 40 mg DAILY ORAL 01/31/20 09:00 02/25/20 08:59 01/31/20 08:47 Polyethylene Glycol (Miralax) 17 gm DAILYPRN PRN ORAL Constipation 01/30/20 19:00 02/29/20 18:59 Pyridoxine HCl (Vitamin B6) 50 mg DAILY ORAL 01/31/20 09:00 02/25/20 08:59 01/31/20 08:47 Sevelamer Carbonate (Renvela) 1,600 mg THREE TIMES A DAY ORAL 01/31/20 09:00 02/28/20 17:59 01/31/20 08:47 Thiamine HCl (Vitamin B1) 100 mg DAILY ORAL 01/31/20 09:00 02/25/20 11:44 01/31/20 08:47 Vancomycin HCl (Vanco rx to dose) 1 ea DAILY PRN MISC Per rx protocol 01/30/20 19:00 02/29/20 18:59 Zolpidem Tartrate (Ambien) 5 mg HSPRN PRN ORAL Insomnia 01/31/20 11:00 02/01/20 10:59 Chastity Velasco NP Jan 31, 2020 10:55
[2020-01-31] MEDS ORDERED: Zolpidem 5mg tab ORAL PRN ×2 (11:00→21:00)
[2020-01-31 12:00] VITALS: BP 167/71
--- NOTE | 2020-01-31 13:00 | Nephrology Progress Note ---
Assessment/Plan Problem List: (1) ESRD (end stage renal disease) on dialysis (2) Hypoglycemia (3) Diabetes (4) Anemia (5) Patient is [employer] (6) Pacemaker (7) Obese (8) HTN (hypertension) Assessment End stage renal disease on dialysis. Has a right upper arm dialysis fistula as Acces . Getting dialysis Sunday. acute encephalopathy due to hypoglycemia h/o UTI (urinary tract infection) & Pyelonephritis morbid obesity Anemia / Jehova's witness CAD previous stent HTN- hypertensive urgency upon arrival to [facility]. s/p AVG DM 2 bilateral eye blindness h/o CHF Pacemaker Plan Kayexalate for high potassium ordered January 29 Dialysis 01/30 will be done later today EPO, thiamin and b6 Phos binders diet to renal , medium CHO per consultants Subjective ROS Limited/Unobtainable: No Constitutional: Reports: malaise Objective Objective Last 24 Hour Vital Signs Date Time Temp Pulse Resp B/P (MAP) Pulse Ox O2 Delivery O2 Flow Rate FiO2 01/31/20 09:00 Room Air 01/31/20 08:00 98.2 66 20 150/64 (92) 99 01/31/20 04:00 97.9 62 20 154/70 (98) 96 01/31/20 01:45 150/78 01/31/20 00:00 97.4 71 21 150/78 (102) 96 01/30/20 21:00 Room Air 01/30/20 20:31 156/71 01/30/20 20:00 97.3 62 20 156/71 (99) 95 01/30/20 17:55 131/80 01/30/20 16:00 97.7 64 20 131/80 (97) 97 Intake and Output 01/30/20 01/31/20 19:00 07:00 Intake Total 300 ml 500 ml Balance 300 ml 500 ml Intake Oral 300 ml 500 ml # Voids 1 # Bowel Movements 1 Height (Feet): 5 Height (Inches): 9.00 Weight (Pounds): 268 General Appearance: no apparent distress Objective no change Bryan Hunter MD Jan 31, 2020 13:00
--- NOTE | 2020-01-31 14:32 | General Progress Note ---
Assessment/Plan Problem List: (1) HTN (hypertension) ICD Codes: I10 - Essential (primary) hypertension SNOMED: 17744448 (2) Anemia ICD Codes: D64.9 - Anemia, unspecified SNOMED: 356498881 (3) Diabetes ICD Codes: E11.9 - Type 2 diabetes mellitus without complications SNOMED: 29201236 (4) HTN (hypertension) ICD Codes: I10 - Essential (primary) hypertension SNOMED: 50826143 (5) Pacemaker ICD Codes: Z95.0 - Presence of cardiac pacemaker SNOMED: 436742842 (6) Coronary artery disease ICD Codes: I25.10 - Coronary artery disease SNOMED: 78257012 (7) Uncontrolled diabetes mellitus ICD Codes: E11.9 - Type 2 diabetes mellitus without complications SNOMED: 352681946 (8) Intractable back pain ICD Codes: M54.9 - Dorsalgia, unspecified SNOMED: 425432155 Status: progressing Assessment/Plan: cad arrythmai sugar improved check lytes htn no cp no sob Subjective ROS Limited/Unobtainable: Yes Allergies: Coded Allergies: NO KNOWN ALLERGIES (Unverified Allergy, Unknown, 10/15/15) Objective Last 24 Hour Vital Signs Date Time Temp Pulse Resp B/P (MAP) Pulse Ox O2 Delivery O2 Flow Rate FiO2 01/31/20 12:00 97.2 64 20 167/71 (103) 97 01/31/20 10:00 167/71 01/31/20 09:00 Room Air 01/31/20 08:00 98.2 66 20 150/64 (92) 99 01/31/20 04:00 97.9 62 20 154/70 (98) 96 01/31/20 01:45 150/78 01/31/20 00:00 97.4 71 21 150/78 (102) 96 01/30/20 21:00 Room Air 01/30/20 20:31 156/71 01/30/20 20:00 97.3 62 20 156/71 (99) 95 01/30/20 17:55 131/80 01/30/20 16:00 97.7 64 20 131/80 (97) 97 Intake and Output 01/30/20 01/31/20 19:00 07:00 Intake Total 300 ml 500 ml Balance 300 ml 500 ml Intake Oral 300 ml 500 ml # Voids 1 # Bowel Movements 1 Height (Feet): 5 Height (Inches): 9.00 Weight (Pounds): 268 Magdiel Gaming MD Jan 31, 2020 14:32
[2020-01-31] MEDS: HYDROcodone/Acetamin 10/325 tab ORAL PRN (14:43)
[2020-01-31 16:00] VITALS: BP 158/68
[2020-01-31] MEDS: Miralax 17gm pkt ORAL PRN (17:09)
[2020-01-31 20:00] VITALS: BP 157/75
[2020-01-31] MEDS ORDERED: Vancomycin 1gm/D5W 275ml IVPB ONE ×2 (21:00)
[2020-01-31] MEDS ORDERED: Vancomycin 1 GM in D5W 275 ML IVPB ONE (21:00)
[2020-02-01] VITALS: BP 155/79
[2020-02-01] MEDS: HydrALAZINE 50mg tab ORAL SCH ×3 (03:09→18:26)
[2020-02-01 04:00] VITALS: BP 150/82
[2020-02-01] MEDS: NovoLOG Insulin Flexpen SUBQ SCH ×4 (06:30→20:43)
[2020-02-01 08:00] VITALS: BP 163/73
[2020-02-01] MEDS: Heparin 5000 units/ml inj SUBQ SCH ×2 (09:09→20:42)
[2020-02-01] MEDS: Pyridoxine 50mg tab ORAL SCH (09:09)
[2020-02-01] MEDS: Thiamine 100mg tab ORAL SCH (09:10)
[2020-02-01] MEDS: Docusate 100mg cap ORAL SCH ×2 (09:10→17:25)
--- NOTE | 2020-02-01 10:03 | Pulmonology Progress Note ---
Assessment/Plan Assessment/Plan ASSESSMENT HTN urgency initially -resolved bacteremia acute metabolic encephalopathy due to hypoglycemia -resolved DM with recurrent hypoglycemia/[id number]-4.8 ESRD, on HD electrolyte abnormalities pacemaker anemia of chronic disease Jehovah witness bilateral blindness morbid obesity intractable back pain lumbar radiculopathy PLAN OF CARE MS floor BP management with current regimen and optimize further treatment as needed HD as per nephro; monitor volumes, lytes, renal parameters ; no evidence of volume overload BCX + Staph epidermidis abx per ID/Vanco prior BCX from OSH also positive ECHO 01/24 no evidence of vegetation pEF 60-65% and RVSP of 75 c/w severe pulm HTNm, moderate MR and TR fup with BCX for clearance per ID may need CLAY cardio on board O2 HHN prn CXR stable Venous Duplex negative, SCD, hold heparin given tendency to become very anemic, and unable to transfuse fall precautions monitor HH , no blood transfusion, given Sonja morocho started on EPO pain management DVT GI prophayxlis assist with meals supportive care bowel regimen case discussed and evaluated by supervising physician Subjective Allergies: Coded Allergies: NO KNOWN ALLERGIES (Unverified Allergy, Unknown, 10/15/15) Subjective HD done yesterday mental status stable BP stabilized no signs of resp distress BCX + Staph epidermidis no fevers, no leukocytosis Objective Last 24 Hour Vital Signs Date Time Temp Pulse Resp B/P (MAP) Pulse Ox O2 Delivery O2 Flow Rate FiO2 02/01/20 09:00 64 163/73 02/01/20 08:00 97.6 64 20 163/73 (103) 100 02/01/20 04:00 97.9 71 21 150/82 (104) 98 02/01/20 03:09 155/79 02/01/20 00:00 97.8 63 20 155/79 (104) 100 01/31/20 21:00 Room Air 01/31/20 20:00 97.1 67 21 157/75 (102) 94 01/31/20 17:48 158/68 01/31/20 16:00 97.1 62 20 158/68 (98) 100 01/31/20 12:00 97.2 64 20 167/71 (103) 97 Intake and Output 01/31/20 02/01/20 19:00 07:00 Intake Total 720 ml Balance 720 ml Intake Oral 720 ml Objective General Appearance: morbidly obese AA female in NAD, awake, responsive Lines, tubes and drains: peripheral HEENT: normocephalic, atraumatic, anicteric, mucous membranes moist, bilateral blindness Respiratory/Chest: chest wall non-tender, no respiratory distress, no accessory muscle use, crackles/rales, BS clear with decreased air exchange Cardiovascular/Chest: normal rate, pacemaker/AICD - A pacing, pacemaker Left upper chest Abdomen: normal bowel sounds, soft , obese Extremities: non-tender, no calf tenderness, no leg edema, + 1 bilateral hand edema Skin Exam: warm/dry Neurologic: abnormal gait, responsive Musculoskeletal: atrophy Laboratory Tests 02/01/20 05:54: Random Vancomycin Level 16.4 Current Medications Medications (Trade) Dose Ordered Sig/Josi Route PRN Reason Start Time Stop Time Status Last Admin Dose Admin Acetaminophen (Tylenol) 650 mg Q4H PRN ORAL Mild Pain/Temp > 100.5 01/30/20 19:00 02/24/20 18:59 01/31/20 17:55 Acetaminophen/ Hydrocodone Bitart ([place] 10/325) 1 tab Q6H PRN ORAL Pain Scale (6-10) 01/31/20 11:00 02/02/20 10:59 01/31/20 14:43 Amlodipine Besylate (Norvasc) 10 mg DAILY ORAL 01/31/20 09:00 02/25/20 08:59 Atorvastatin Calcium (Lipitor) 10 mg BEDTIME ORAL 01/30/20 21:00 02/24/20 20:59 01/31/20 20:34 Dextrose (Dextrose 50%) 25 ml Q30M PRN IV Hypoglycemia 01/30/20 19:00 02/24/20 18:59 Dextrose (Dextrose 50%) 50 ml Q30M PRN IV Hypoglycemia 01/30/20 19:00 02/24/20 18:59 Diphenhydramine HCl (Benadryl) 50 mg Q6H PRN ORAL Itching 01/30/20 19:00 02/24/20 18:59 02/01/20 05:33 Docusate Sodium (Colace) 100 mg TWICE A DAY ORAL 01/31/20 09:00 02/24/20 17:59 02/01/20 09:10 Epoetin Jose De Jesus (Epoetin Jose De Jesus(ESRD on dialysis)) 6,000 unit SUN-SUN-SUN SUBQ 01/30/20 21:00 02/25/20 20:59 01/30/20 20:32 Gabapentin (Neurontin) 300 mg THREE TIMES A DAY ORAL 01/31/20 09:00 02/24/20 17:59 02/01/20 09:10 Heparin Sodium (Porcine) (Heparin 5000 units/ml) 5,000 units EVERY 12 HOURS SUBQ 01/30/20 21:00 02/25/20 09:44 02/01/20 09:09 Hydralazine HCl (Apresoline) 25 mg Q4H PRN ORAL For High Blood Pressure 01/30/20 19:00 02/24/20 18:59 01/30/20 20:31 Hydralazine HCl (Apresoline) 100 mg Q8H ORAL 01/31/20 02:00 02/24/20 17:59 02/01/20 03:09 Insulin Aspart (NovoLOG) BEFORE MEALS AND HS SUBQ 01/30/20 21:00 02/24/20 16:29 01/31/20 20:40 Lorazepam (Ativan) 1 mg Q6H PRN ORAL For Anxiety 01/30/20 19:00 02/01/20 18:59 Pantoprazole (Protonix) 40 mg DAILY ORAL 01/31/20 09:00 02/25/20 08:59 02/01/20 09:09 Polyethylene Glycol (Miralax) 17 gm DAILYPRN PRN ORAL Constipation 01/30/20 19:00 02/29/20 18:59 01/31/20 17:09 Pyridoxine HCl (Vitamin B6) 50 mg DAILY ORAL 01/31/20 09:00 02/25/20 08:59 02/01/20 09:09 Sevelamer Carbonate (Renvela) 1,600 mg THREE TIMES A DAY ORAL 01/31/20 09:00 02/28/20 17:59 02/01/20 09:10 Thiamine HCl (Vitamin B1) 100 mg DAILY ORAL 01/31/20 09:00 02/25/20 11:44 02/01/20 09:10 Vancomycin HCl (Vanco rx to dose) 1 ea DAILY PRN MISC Per rx protocol 01/30/20 19:00 02/29/20 18:59 Zolpidem Tartrate (Ambien) 5 mg HSPRN PRN ORAL Insomnia 01/31/20 11:00 02/01/20 10:59 Chastity Velasco NP Feb 01, 2020 10:03
[2020-02-01] MEDS ORDERED: Zolpidem 5mg tab ORAL PRN (10:15)
[2020-02-01] MEDS ORDERED: Albuterol/Ipratropium 3ml neb HHN PRN (10:15)
[2020-02-01 12:00] VITALS: BP 138/76
[2020-02-01] MEDS ORDERED: LORazepam 1mg tab ORAL PRN (13:00)
[2020-02-01] MEDS ORDERED: Vancomycin 1.5gm/NS Premix 275 ML IVPB SCH (13:30)
--- NOTE | 2020-02-01 13:35 | General Progress Note ---
Assessment/Plan Assessment/Plan: (1) Morbid Obesity (2) Peripheral Neuropathy (3) Lumbar DDD (4) Lumbar Spondylosis (5) Lumbar Radiculopathy Patient to be continued on [place] D/w Dr. Santiago and he concurred. Subjective Date patient seen: Feb 01, 2020 Time patient seen: 01:15 - pm Allergies: Coded Allergies: NO KNOWN ALLERGIES (Unverified Allergy, Unknown, 10/15/15) Subjective Constitutional: Reports: no symptoms Eye: Reports: blurred vision ENT: Reports: no symptoms Respiratory: Reports: no symptoms Cardiovascular: Reports: no symptoms Gastrointestinal: Reports: no symptoms Genitourinary: Reports: no symptoms Musculoskeletal: Reports: back pain Skin: Reports: no symptoms Psychiatric: Reports: no symptoms Neurological: Reports: tingling, focal weakness Endocrine: Reports: no symptoms Hematologic/Lymphatic: Reports: no symptoms SUBJECTIVE: Pain has been stable and tolerated on the [place]. she has no new complaints at this time. Objective Last 24 Hour Vital Signs Date Time Temp Pulse Resp B/P (MAP) Pulse Ox O2 Delivery O2 Flow Rate FiO2 02/01/20 10:00 163/73 02/01/20 09:00 64 163/73 02/01/20 09:00 Room Air 02/01/20 08:00 97.6 64 20 163/73 (103) 100 02/01/20 04:00 97.9 71 21 150/82 (104) 98 02/01/20 03:09 155/79 02/01/20 00:00 97.8 63 20 155/79 (104) 100 01/31/20 21:00 Room Air 01/31/20 20:00 97.1 67 21 157/75 (102) 94 01/31/20 17:48 158/68 01/31/20 16:00 97.1 62 20 158/68 (98) 100 Intake and Output 01/31/20 02/01/20 19:00 07:00 Intake Total 720 ml Balance 720 ml Intake Oral 720 ml Laboratory Tests 02/01/20 05:54: Random Vancomycin Level 16.4 Height (Feet): 5 Height (Inches): 9.00 Weight (Pounds): 268 Objective General Appearance: no apparent distress, alert HEENT: normocephalic, atraumatic Neck: non-tender, normal alignment Respiratory/Chest: decreased breath sounds Cardiovascular/Chest: normal rate, regular rhythm Abdomen: non tender, soft Extremities: non-tender Neurologic: alert, responsive Johnnie Isidro Feb 01, 2020 13:35
--- NOTE | 2020-02-01 15:06 | Nephrology Progress Note ---
Assessment/Plan Problem List: (1) ESRD (end stage renal disease) on dialysis (2) Hypoglycemia (3) Diabetes (4) Anemia (5) Patient is [employer] (6) Pacemaker (7) Obese (8) HTN (hypertension) Assessment End stage renal disease on dialysis. Has a right upper arm dialysis fistula as Acces . Getting dialysis Sunday. acute encephalopathy due to hypoglycemia h/o UTI (urinary tract infection) & Pyelonephritis morbid obesity Anemia / Jehova's witness CAD previous stent HTN- hypertensive urgency upon arrival to [facility]. s/p AVG DM 2 bilateral eye blindness h/o CHF Pacemaker Plan Patient was seen during dialysis as the order of dialysis yesterday was not carried out due dialysis team staffing purposes Tolerating dialysis well at this time EPO, thiamin and b6 Phos binders diet to renal , medium CHO per consultants Subjective ROS Limited/Unobtainable: No Constitutional: Reports: malaise Objective Objective Last 24 Hour Vital Signs Date Time Temp Pulse Resp B/P (MAP) Pulse Ox O2 Delivery O2 Flow Rate FiO2 02/01/20 12:00 98.3 67 20 138/76 (96) 99 02/01/20 10:00 163/73 02/01/20 09:00 64 163/73 02/01/20 09:00 Room Air 02/01/20 08:00 97.6 64 20 163/73 (103) 100 02/01/20 04:00 97.9 71 21 150/82 (104) 98 02/01/20 03:09 155/79 02/01/20 00:00 97.8 63 20 155/79 (104) 100 01/31/20 21:00 Room Air 01/31/20 20:00 97.1 67 21 157/75 (102) 94 01/31/20 17:48 158/68 01/31/20 16:00 97.1 62 20 158/68 (98) 100 Intake and Output 01/31/20 02/01/20 19:00 07:00 Intake Total 720 ml Balance 720 ml Intake Oral 720 ml Laboratory Tests 02/01/20 05:54: Random Vancomycin Level 16.4 Height (Feet): 5 Height (Inches): 9.00 Weight (Pounds): 268 General Appearance: no apparent distress Cardiovascular: normal rate Respiratory/Chest: decreased breath sounds Abdomen: soft Objective no change Bryan Hunter MD Feb 01, 2020 15:06
[2020-02-01 16:00] VITALS: BP 128/58
[2020-02-01 20:00] VITALS: BP 125/53
--- NOTE | 2020-02-01 20:45 | General Progress Note ---
Assessment/Plan Problem List: (1) HTN (hypertension) ICD Codes: I10 - Essential (primary) hypertension SNOMED: 76107520 (2) Anemia ICD Codes: D64.9 - Anemia, unspecified SNOMED: 299776872 (3) Diabetes ICD Codes: E11.9 - Type 2 diabetes mellitus without complications SNOMED: 87929598 (4) HTN (hypertension) ICD Codes: I10 - Essential (primary) hypertension SNOMED: 91764136 (5) Pacemaker ICD Codes: Z95.0 - Presence of cardiac pacemaker SNOMED: 953064830 (6) Coronary artery disease ICD Codes: I25.10 - Coronary artery disease SNOMED: 31343634 (7) Uncontrolled diabetes mellitus ICD Codes: E11.9 - Type 2 diabetes mellitus without complications SNOMED: 501559602 (8) Intractable back pain ICD Codes: M54.9 - Dorsalgia, unspecified SNOMED: 264264469 Assessment/Plan: htn niddm check sugar afebrile reviewd chart no cp no sob Subjective ROS Limited/Unobtainable: Yes Allergies: Coded Allergies: NO KNOWN ALLERGIES (Unverified Allergy, Unknown, 10/15/15) Objective Last 24 Hour Vital Signs Date Time Temp Pulse Resp B/P (MAP) Pulse Ox O2 Delivery O2 Flow Rate FiO2 02/01/20 18:26 153/61 02/01/20 16:00 97.3 64 20 128/58 (81) 96 02/01/20 12:00 98.3 67 20 138/76 (96) 99 02/01/20 10:00 163/73 02/01/20 09:00 64 163/73 02/01/20 09:00 Room Air 02/01/20 08:00 97.6 64 20 163/73 (103) 100 02/01/20 04:00 97.9 71 21 150/82 (104) 98 02/01/20 03:09 155/79 02/01/20 00:00 97.8 63 20 155/79 (104) 100 01/31/20 21:00 Room Air Intake and Output 01/31/20 02/01/20 19:00 07:00 Intake Total 720 ml Balance 720 ml Intake Oral 720 ml Laboratory Tests 02/01/20 05:54: Random Vancomycin Level 16.4 Height (Feet): 5 Height (Inches): 9.00 Weight (Pounds): 268 Magdiel Gaming MD Feb 01, 2020 20:45
[2020-02-02] VITALS: BP 134/56
[2020-02-02] MEDS: HydrALAZINE 50mg tab ORAL SCH ×3 (01:48→17:28)
[2020-02-02 04:00] VITALS: BP 142/58
[2020-02-02] MEDS: NovoLOG Insulin Flexpen SUBQ SCH ×4 (06:30→20:25)
--- NOTE | 2020-02-02 07:14 | General Progress Note ---
Assessment/Plan Problem List: (1) Blindness of both eyes ICD Codes: H54.0 - Blindness SNOMED: 857174539 (2) Accelerated hypertension ICD Codes: I10 - Essential (primary) hypertension SNOMED: 41945627 (3) Uncontrolled diabetes mellitus ICD Codes: E11.9 - Type 2 diabetes mellitus without complications SNOMED: 425110061 (4) Hypoglycemia ICD Codes: E16.2 - Hypoglycemia, unspecified SNOMED: 026952304 Assessment/Plan: continue to hold scheduled diabetic medications hypoglycemia protocol in order low dose Novolog as needed Subjective Allergies: Coded Allergies: NO KNOWN ALLERGIES (Unverified Allergy, Unknown, 10/15/15) All Systems: reviewed and negative except above Subjective events noted glucose values are stable without hypoglycemia Item Value Date Time Bedside Blood Glucose 86 mg/dl 02/02/20 0630 Bedside Blood Glucose 154 mg/dl H 02/01/20 2043 Bedside Blood Glucose 164 mg/dl H 02/01/20 1727 Bedside Blood Glucose 141 mg/dl H 02/01/20 1247 Bedside Blood Glucose 138 mg/dl H 02/01/20 0630 Objective Last 24 Hour Vital Signs Date Time Temp Pulse Resp B/P (MAP) Pulse Ox O2 Delivery O2 Flow Rate FiO2 02/02/20 04:00 98.2 66 19 142/58 (86) 96 02/02/20 01:48 134/56 02/02/20 00:00 97.9 63 19 134/56 (82) 95 02/01/20 21:00 Room Air 02/01/20 20:00 97.8 65 19 125/53 (77) 96 02/01/20 18:26 153/61 02/01/20 16:00 97.3 64 20 128/58 (81) 96 02/01/20 12:00 98.3 67 20 138/76 (96) 99 02/01/20 10:00 163/73 02/01/20 09:00 64 163/73 02/01/20 09:00 Room Air 02/01/20 08:00 97.6 64 20 163/73 (103) 100 Intake and Output 02/01/20 02/02/20 19:00 07:00 Intake Total 2000 ml 400 ml Balance 2000 ml 400 ml Intake Oral 400 ml Hemodialysis 2000 ml # Voids 1 Height (Feet): 5 Height (Inches): 9.00 Weight (Pounds): 268 General Appearance: no apparent distress Neck: normal alignment Cardiovascular: normal rate Respiratory/Chest: lungs clear Abdomen: normal bowel sounds Pelvis: normal external exam Objective Current Medications Medications (Trade) Dose Ordered Sig/Josi Route PRN Reason Start Time Stop Time Status Last Admin Dose Admin Acetaminophen (Tylenol) 650 mg Q4H PRN ORAL Mild Pain/Temp > 100.5 01/30/20 19:00 02/24/20 18:59 01/31/20 17:55 Acetaminophen/ Hydrocodone Bitart ([place] 10/325) 1 tab Q6H PRN ORAL Pain Scale (6-10) 01/31/20 11:00 02/02/20 10:59 01/31/20 14:43 Albuterol/ Ipratropium (Albuterol/ Ipratropium) 3 ml Q4HRT PRN HHN Shortness of Breath 02/01/20 10:15 02/06/20 10:14 Amlodipine Besylate (Norvasc) 10 mg DAILY ORAL 01/31/20 09:00 02/25/20 08:59 Atorvastatin Calcium (Lipitor) 10 mg BEDTIME ORAL 01/30/20 21:00 02/24/20 20:59 02/01/20 20:29 Dextrose (Dextrose 50%) 25 ml Q30M PRN IV Hypoglycemia 01/30/20 19:00 02/24/20 18:59 Dextrose (Dextrose 50%) 50 ml Q30M PRN IV Hypoglycemia 01/30/20 19:00 02/24/20 18:59 Diphenhydramine HCl (Benadryl) 50 mg Q6H PRN ORAL Itching 01/30/20 19:00 02/24/20 18:59 02/01/20 05:33 Docusate Sodium (Colace) 100 mg TWICE A DAY ORAL 01/31/20 09:00 02/24/20 17:59 02/01/20 17:25 Epoetin Jose De Jesus (Epoetin Jose De Jesus(ESRD on dialysis)) 6,000 unit SUN-SUN-SUN SUBQ 01/30/20 21:00 02/25/20 20:59 01/30/20 20:32 Gabapentin (Neurontin) 300 mg THREE TIMES A DAY ORAL 01/31/20 09:00 02/24/20 17:59 02/01/20 17:25 Heparin Sodium (Porcine) (Heparin 5000 units/ml) 5,000 units EVERY 12 HOURS SUBQ 01/30/20 21:00 02/25/20 09:44 02/01/20 20:42 Hydralazine HCl (Apresoline) 25 mg Q4H PRN ORAL For High Blood Pressure 01/30/20 19:00 02/24/20 18:59 01/30/20 20:31 Hydralazine HCl (Apresoline) 100 mg Q8H ORAL 01/31/20 02:00 02/24/20 17:59 02/02/20 01:48 Insulin Aspart (NovoLOG) BEFORE MEALS AND HS SUBQ 01/30/20 21:00 02/24/20 16:29 02/01/20 20:43 Lorazepam (Ativan) 1 mg Q6H PRN ORAL For Anxiety 02/01/20 13:00 02/03/20 12:59 Pantoprazole (Protonix) 40 mg DAILY ORAL 01/31/20 09:00 02/25/20 08:59 02/01/20 09:09 Polyethylene Glycol (Miralax) 17 gm DAILYPRN PRN ORAL Constipation 01/30/20 19:00 02/29/20 18:59 01/31/20 17:09 Pyridoxine HCl (Vitamin B6) 50 mg DAILY ORAL 01/31/20 09:00 02/25/20 08:59 02/01/20 09:09 Sevelamer Carbonate (Renvela) 1,600 mg THREE TIMES A DAY ORAL 01/31/20 09:00 02/28/20 17:59 02/01/20 17:26 Thiamine HCl (Vitamin B1) 100 mg DAILY ORAL 01/31/20 09:00 02/25/20 11:44 02/01/20 09:10 Vancomycin HCl (Vanco rx to dose) 1 ea DAILY PRN MISC Per rx protocol 01/30/20 19:00 02/29/20 18:59 Zolpidem Tartrate (Ambien) 5 mg HSPRN PRN ORAL Insomnia 02/01/20 10:15 02/02/20 10:14 Franko Rogel MD Feb 02, 2020 07:14
[2020-02-02 08:00] VITALS: BP 134/56
[2020-02-02] MEDS: Thiamine 100mg tab ORAL SCH (09:30)
[2020-02-02] MEDS: Pyridoxine 50mg tab ORAL SCH (09:31)
[2020-02-02] MEDS: Docusate 100mg cap ORAL SCH ×2 (09:31→17:28)
[2020-02-02] MEDS: Heparin 5000 units/ml inj SUBQ SCH ×2 (09:32→20:18)
[2020-02-02 09:51] LABS: BASOPHILS % (AUTO) 1.1 % (0.0-2.0); EOSINOPHILS % (AUTO) 5.8 % (0.0-3.0); HEMATOCRIT 31.6 % (37.0-47.0); HEMOGLOBIN 9.6 G/DL (12.0-16.0); LYMPHOCYTES % (AUTO) 23.1 % (20.0-45.0); MEAN CORPUSCULAR VOLUME 80 FL (80-99); MONOCYTES % (AUTO) 11.2 % (1.0-10.0); NEUTROPHILS % (AUTO) 58.7 % (45.0-75.0); PLATELET COUNT 224 K/UL (150-450); RED BLOOD COUNT 3.95 M/UL (4.20-5.40); RED CELL DISTRIBUTION WIDTH 16.6 % (11.6-14.8); WHITE BLOOD COUNT 7.2 K/UL (4.8-10.8)
[2020-02-02] MEDS: HYDROcodone/Acetamin 10/325 tab ORAL PRN ×2 (10:17→20:32)
[2020-02-02 10:21] LABS: ALANINE AMINOTRANSFERASE 24 U/L (12-78); ALBUMIN 3.4 G/DL (3.4-5.0); ALBUMIN/GLOBULIN RATIO 0.8 (1.0-2.7); ALKALINE PHOSPHATASE 355 U/L (46-116); ANION GAP 17 mmol/L (5-15); ASPARTATE AMINO TRANSFERASE 17 U/L (15-37); BILIRUBIN,TOTAL 0.5 MG/DL (0.2-1.0); BLOOD UREA NITROGEN 57 mg/dL (7-18); CALCIUM 9.2 MG/DL (8.5-10.1); CARBON DIOXIDE 18 MMOL/L (21-32); CHLORIDE 97 MMOL/L (98-107); CREATININE 6.8 MG/DL (0.55-1.30); POTASSIUM 4.6 MMOL/L (3.5-5.1); SODIUM 131 MMOL/L (136-145)
[2020-02-02] MEDS: Miralax 17gm pkt ORAL PRN (10:24)
--- NOTE | 2020-02-02 11:10 | General Progress Note ---
Assessment/Plan Problem List: (1) HTN (hypertension) ICD Codes: I10 - Essential (primary) hypertension SNOMED: 00070611 (2) Anemia ICD Codes: D64.9 - Anemia, unspecified SNOMED: 313694635 (3) Diabetes ICD Codes: E11.9 - Type 2 diabetes mellitus without complications SNOMED: 62919048 (4) HTN (hypertension) ICD Codes: I10 - Essential (primary) hypertension SNOMED: 71209030 (5) Pacemaker ICD Codes: Z95.0 - Presence of cardiac pacemaker SNOMED: 342100479 (6) Coronary artery disease ICD Codes: I25.10 - Coronary artery disease SNOMED: 00287129 (7) Uncontrolled diabetes mellitus ICD Codes: E11.9 - Type 2 diabetes mellitus without complications SNOMED: 022374946 (8) Intractable back pain ICD Codes: M54.9 - Dorsalgia, unspecified SNOMED: 361712035 Assessment/Plan: check vitals and labs arrythmia cad reviewed chart and labs Subjective ROS Limited/Unobtainable: Yes Allergies: Coded Allergies: NO KNOWN ALLERGIES (Unverified Allergy, Unknown, 10/15/15) Objective Last 24 Hour Vital Signs Date Time Temp Pulse Resp B/P (MAP) Pulse Ox O2 Delivery O2 Flow Rate FiO2 02/02/20 09:31 63 134/56 02/02/20 09:30 134/56 02/02/20 09:00 Room Air 02/02/20 08:00 98.3 63 19 134/56 (82) 98 02/02/20 07:00 70 20 97 Room Air 21 02/02/20 04:00 98.2 66 19 142/58 (86) 96 02/02/20 01:48 134/56 02/02/20 00:00 97.9 63 19 134/56 (82) 95 02/01/20 21:00 Room Air 02/01/20 20:00 97.8 65 19 125/53 (77) 96 02/01/20 18:26 153/61 02/01/20 16:00 97.3 64 20 128/58 (81) 96 02/01/20 12:00 98.3 67 20 138/76 (96) 99 Intake and Output 02/01/20 02/02/20 19:00 07:00 Intake Total 2000 ml 400 ml Balance 2000 ml 400 ml Intake Oral 400 ml Hemodialysis 2000 ml # Voids 1 Laboratory Tests 02/02/20 09:35: White Blood Count 7.2, Red Blood Count 3.95L, Hemoglobin 9.6L, Hematocrit 31.6L , Mean Corpuscular Volume 80, Mean Corpuscular Hemoglobin 24.3L, Mean Corpuscular Hemoglobin Concent 30.4L, Red Cell Distribution Width 16.6H, Platelet Count 224, Mean Platelet Volume 5.9L, Neutrophils (%) (Auto) 58.7, Lymphocytes (%) (Auto) 23.1, Monocytes (%) (Auto) 11.2H, Eosinophils (%) (Auto) 5.8H, Basophils (%) (Auto) 1.1, Sodium Level 131L, Potassium Level 4.6, Chloride Level 97L, Carbon Dioxide Level 18L, Anion Gap 17H, Blood Urea Nitrogen 57H, Creatinine 6.8H, Estimat Glomerular Filtration Rate 7.5, Glucose Level 155H, Calcium Level 9.2, Phosphorus Level 6.0H, Magnesium Level 2.5H, Total Bilirubin 0.5, Aspartate Amino Transf (AST/SGOT) 17, Alanine Aminotransferase (ALT/SGPT) 24, Alkaline Phosphatase 355H, Total Protein 7.8, Albumin 3.4, Globulin 4.4, Albumin/Globulin Ratio 0.8L Height (Feet): 5 Height (Inches): 9.00 Weight (Pounds): 268 Cardiovascular: normal rate Respiratory/Chest: lungs clear Abdomen: soft Magdiel Gaming MD Feb 02, 2020 11:10
[2020-02-02 12:00] VITALS: BP 123/81
--- NOTE | 2020-02-02 12:24 | Pulmonology Progress Note ---
Assessment/Plan Problems: (1) Bacteremia (2) Accelerated hypertension (3) Uncontrolled diabetes mellitus (4) Hypoglycemia (5) Intractable back pain (6) ESRD (end stage renal disease) on dialysis (7) Lumbar radiculopathy (8) Coronary artery disease (9) Morbid obesity (10) Blindness of both eyes Assessment/Plan f/u blood culture results, repeat cultures are positive BP better no new complains doing better Bs better mental status improved BP becoming more stable HD by nephrology sliding scale diabetic diet f/u cardio and renal recommendations. Subjective ROS Limited/Unobtainable: No Constitutional: Reports: no symptoms HEENT: Repors: no symptoms Allergies: Coded Allergies: NO KNOWN ALLERGIES (Unverified Allergy, Unknown, 10/15/15) Objective Last 24 Hour Vital Signs Date Time Temp Pulse Resp B/P (MAP) Pulse Ox O2 Delivery O2 Flow Rate FiO2 02/02/20 12:00 97.6 78 17 123/81 (95) 97 02/02/20 09:31 63 134/56 02/02/20 09:30 134/56 02/02/20 09:00 Room Air 02/02/20 08:00 98.3 63 19 134/56 (82) 98 02/02/20 07:00 70 20 97 Room Air 21 02/02/20 04:00 98.2 66 19 142/58 (86) 96 02/02/20 01:48 134/56 02/02/20 00:00 97.9 63 19 134/56 (82) 95 02/01/20 21:00 Room Air 02/01/20 20:00 97.8 65 19 125/53 (77) 96 02/01/20 18:26 153/61 02/01/20 16:00 97.3 64 20 128/58 (81) 96 Intake and Output 02/01/20 02/02/20 19:00 07:00 Intake Total 2000 ml 400 ml Balance 2000 ml 400 ml Intake Oral 400 ml Hemodialysis 2000 ml # Voids 1 Objective no new complains General Appearance: WD/WN HEENT: normocephalic, atraumatic Respiratory/Chest: chest wall non-tender Cardiovascular: normal peripheral pulses, regular rhythm Abdomen: normal bowel sounds, soft, non tender, no organomegaly Genitourinary: normal external genitalia Skin: no rash Microbiology Date/Time Source Procedure Growth Status 01/31/20 09:30 Blood Blood Culture - Preliminary Resulted 01/31/20 09:15 Blood Blood Culture - Preliminary NO GROWTH AFTER 24 HOURS Resulted Laboratory Tests 02/02/20 09:35: White Blood Count 7.2, Red Blood Count 3.95L, Hemoglobin 9.6L, Hematocrit 31.6L , Mean Corpuscular Volume 80, Mean Corpuscular Hemoglobin 24.3L, Mean Corpuscular Hemoglobin Concent 30.4L, Red Cell Distribution Width 16.6H, Platelet Count 224, Mean Platelet Volume 5.9L, Neutrophils (%) (Auto) 58.7, Lymphocytes (%) (Auto) 23.1, Monocytes (%) (Auto) 11.2H, Eosinophils (%) (Auto) 5.8H, Basophils (%) (Auto) 1.1, Sodium Level 131L, Potassium Level 4.6, Chloride Level 97L, Carbon Dioxide Level 18L, Anion Gap 17H, Blood Urea Nitrogen 57H, Creatinine 6.8H, Estimat Glomerular Filtration Rate 7.5, Glucose Level 155H, Calcium Level 9.2, Phosphorus Level 6.0H, Magnesium Level 2.5H, Total Bilirubin 0.5, Aspartate Amino Transf (AST/SGOT) 17, Alanine Aminotransferase (ALT/SGPT) 24, Alkaline Phosphatase 355H, Total Protein 7.8, Albumin 3.4, Globulin 4.4, Albumin/Globulin Ratio 0.8L Current Medications Medications (Trade) Dose Ordered Sig/Josi Route PRN Reason Start Time Stop Time Status Last Admin Dose Admin Acetaminophen (Tylenol) 650 mg Q4H PRN ORAL Mild Pain/Temp > 100.5 01/30/20 19:00 02/24/20 18:59 01/31/20 17:55 Albuterol/ Ipratropium (Albuterol/ Ipratropium) 3 ml Q4HRT PRN HHN Shortness of Breath 02/01/20 10:15 02/06/20 10:14 Amlodipine Besylate (Norvasc) 10 mg DAILY ORAL 01/31/20 09:00 02/25/20 08:59 02/02/20 09:31 Atorvastatin Calcium (Lipitor) 10 mg BEDTIME ORAL 01/30/20 21:00 02/24/20 20:59 02/01/20 20:29 Dextrose (Dextrose 50%) 25 ml Q30M PRN IV Hypoglycemia 01/30/20 19:00 02/24/20 18:59 Dextrose (Dextrose 50%) 50 ml Q30M PRN IV Hypoglycemia 01/30/20 19:00 02/24/20 18:59 Diphenhydramine HCl (Benadryl) 50 mg Q6H PRN ORAL Itching 01/30/20 19:00 02/24/20 18:59 02/01/20 05:33 Docusate Sodium (Colace) 100 mg TWICE A DAY ORAL 01/31/20 09:00 02/24/20 17:59 02/02/20 09:31 Epoetin Jose De Jesus (Epoetin Jose De Jesus(ESRD on dialysis)) 6,000 unit SUN-SUN-SUN SUBQ 01/30/20 21:00 02/25/20 20:59 01/30/20 20:32 Gabapentin (Neurontin) 300 mg THREE TIMES A DAY ORAL 01/31/20 09:00 02/24/20 17:59 02/02/20 12:14 Heparin Sodium (Porcine) (Heparin 5000 units/ml) 5,000 units EVERY 12 HOURS SUBQ 01/30/20 21:00 02/25/20 09:44 02/02/20 09:32 Hydralazine HCl (Apresoline) 25 mg Q4H PRN ORAL For High Blood Pressure 01/30/20 19:00 02/24/20 18:59 01/30/20 20:31 Hydralazine HCl (Apresoline) 100 mg Q8H ORAL 01/31/20 02:00 02/24/20 17:59 02/02/20 09:30 Insulin Aspart (NovoLOG) BEFORE MEALS AND HS SUBQ 01/30/20 21:00 02/24/20 16:29 02/01/20 20:43 Lorazepam (Ativan) 1 mg Q6H PRN ORAL For Anxiety 02/01/20 13:00 02/03/20 12:59 Pantoprazole (Protonix) 40 mg DAILY ORAL 01/31/20 09:00 02/25/20 08:59 02/02/20 09:30 Polyethylene Glycol (Miralax) 17 gm DAILYPRN PRN ORAL Constipation 01/30/20 19:00 02/29/20 18:59 02/02/20 10:24 Pyridoxine HCl (Vitamin B6) 50 mg DAILY ORAL 01/31/20 09:00 02/25/20 08:59 02/02/20 09:31 Sevelamer Carbonate (Renvela) 1,600 mg THREE TIMES A DAY ORAL 01/31/20 09:00 02/28/20 17:59 02/02/20 12:14 Thiamine HCl (Vitamin B1) 100 mg DAILY ORAL 01/31/20 09:00 02/25/20 11:44 02/02/20 09:30 Vancomycin HCl (Vanco rx to dose) 1 ea DAILY PRN MISC Per rx protocol 01/30/20 19:00 02/29/20 18:59 Meghana Murillo MD Feb 02, 2020 12:24
--- NOTE | 2020-02-02 12:50 | Nephrology Progress Note ---
Assessment/Plan Problem List: (1) ESRD (end stage renal disease) on dialysis (2) Hypoglycemia (3) Diabetes (4) Anemia (5) Patient is Alevism (6) Pacemaker (7) Obese (8) HTN (hypertension) Assessment End stage renal disease on dialysis. Has a right upper arm dialysis fistula as Acces . Getting dialysis Sunday. acute encephalopathy due to hypoglycemia h/o UTI (urinary tract infection) & Pyelonephritis morbid obesity Anemia / Jehova's witness CAD previous stent HTN- hypertensive urgency upon arrival to [facility]. s/p AVG DM 2 bilateral eye blindness h/o CHF Pacemaker Plan Last dialyzed January 31 Next dialysis February 02 Discharge planning in process EPO, thiamin and B6 Phos binders diet to renal , medium CHO per consultants Subjective ROS Limited/Unobtainable: No Constitutional: Reports: malaise Objective Objective Last 24 Hour Vital Signs Date Time Temp Pulse Resp B/P (MAP) Pulse Ox O2 Delivery O2 Flow Rate FiO2 02/02/20 12:00 97.6 78 17 123/81 (95) 97 02/02/20 09:31 63 134/56 02/02/20 09:30 134/56 02/02/20 09:00 Room Air 02/02/20 08:00 98.3 63 19 134/56 (82) 98 02/02/20 07:00 70 20 97 Room Air 21 02/02/20 04:00 98.2 66 19 142/58 (86) 96 02/02/20 01:48 134/56 02/02/20 00:00 97.9 63 19 134/56 (82) 95 02/01/20 21:00 Room Air 02/01/20 20:00 97.8 65 19 125/53 (77) 96 02/01/20 18:26 153/61 02/01/20 16:00 97.3 64 20 128/58 (81) 96 Intake and Output 02/01/20 02/02/20 19:00 07:00 Intake Total 2000 ml 400 ml Balance 2000 ml 400 ml Intake Oral 400 ml Hemodialysis 2000 ml # Voids 1 Laboratory Tests 02/02/20 09:35: White Blood Count 7.2, Red Blood Count 3.95L, Hemoglobin 9.6L, Hematocrit 31.6L , Mean Corpuscular Volume 80, Mean Corpuscular Hemoglobin 24.3L, Mean Corpuscular Hemoglobin Concent 30.4L, Red Cell Distribution Width 16.6H, Platelet Count 224, Mean Platelet Volume 5.9L, Neutrophils (%) (Auto) 58.7, Lymphocytes (%) (Auto) 23.1, Monocytes (%) (Auto) 11.2H, Eosinophils (%) (Auto) 5.8H, Basophils (%) (Auto) 1.1, Sodium Level 131L, Potassium Level 4.6, Chloride Level 97L, Carbon Dioxide Level 18L, Anion Gap 17H, Blood Urea Nitrogen 57H, Creatinine 6.8H, Estimat Glomerular Filtration Rate 7.5, Glucose Level 155H, Calcium Level 9.2, Phosphorus Level 6.0H, Magnesium Level 2.5H, Total Bilirubin 0.5, Aspartate Amino Transf (AST/SGOT) 17, Alanine Aminotransferase (ALT/SGPT) 24, Alkaline Phosphatase 355H, Total Protein 7.8, Albumin 3.4, Globulin 4.4, Albumin/Globulin Ratio 0.8L Height (Feet): 5 Height (Inches): 9.00 Weight (Pounds): 268 General Appearance: no apparent distress Objective no change Bryan Hunter MD Feb 02, 2020 12:50
--- NOTE | 2020-02-02 13:50 | Infectious Diseases Prog Note ---
Assessment/Plan Assessment/Plan ASSESSMENT: The patient is a 64-year-old female with positive blood culture CONS ,persistent 3/7 Bc: CoNS 3/4 Bc: CoNS - (outside facility, # of the +ve cultures are not clear) - Rpt blood cx : A 2D echo from outside facility did not show any evidence of vegetation Normal white blood cells. Afebrile. Diabetes. CHF. ESRD. Hypertension. Obesity. PLAN: continue the patient on vancomycin, day # 7 ( duration to be determined ) Monitor CBC. Monitor BMP. Monitor cultures (blood) need CLAY . Subjective Allergies: Coded Allergies: NO KNOWN ALLERGIES (Unverified Allergy, Unknown, 10/15/15) Subjective Afebrile +ve blood cx Objective Vital Signs Last 24 Hour Vital Signs Date Time Temp Pulse Resp B/P (MAP) Pulse Ox O2 Delivery O2 Flow Rate FiO2 02/02/20 12:00 97.6 78 17 123/81 (95) 97 02/02/20 09:31 63 134/56 02/02/20 09:30 134/56 02/02/20 09:00 Room Air 02/02/20 08:00 98.3 63 19 134/56 (82) 98 02/02/20 07:00 70 20 97 Room Air 21 02/02/20 04:00 98.2 66 19 142/58 (86) 96 02/02/20 01:48 134/56 02/02/20 00:00 97.9 63 19 134/56 (82) 95 02/01/20 21:00 Room Air 02/01/20 20:00 97.8 65 19 125/53 (77) 96 02/01/20 18:26 153/61 02/01/20 16:00 97.3 64 20 128/58 (81) 96 Height (Feet): 5 Height (Inches): 9.00 Weight (Pounds): 268 HEENT: anicteric Respiratory/Chest: no respiratory distress Cardiovascular: regular rhythm Abdomen: no organomegaly Microbiology Date/Time Source Procedure Growth Status 01/31/20 09:30 Blood Blood Culture - Preliminary Resulted 01/31/20 09:15 Blood Blood Culture - Preliminary NO GROWTH AFTER 24 HOURS Resulted Laboratory Tests Test 02/02/20 09:35 White Blood Count 7.2 K/UL (4.8-10.8) Red Blood Count 3.95 M/UL (4.20-5.40) L Hemoglobin 9.6 G/DL (12.0-16.0) L Hematocrit 31.6 % (37.0-47.0) L Mean Corpuscular Volume 80 FL (80-99) Mean Corpuscular Hemoglobin 24.3 PG (27.0-31.0) L Mean Corpuscular Hemoglobin Concent 30.4 G/DL (32.0-36.0) L Red Cell Distribution Width 16.6 % (11.6-14.8) H Platelet Count 224 K/UL (150-450) Mean Platelet Volume 5.9 FL (6.5-10.1) L Neutrophils (%) (Auto) 58.7 % (45.0-75.0) Lymphocytes (%) (Auto) 23.1 % (20.0-45.0) Monocytes (%) (Auto) 11.2 % (1.0-10.0) H Eosinophils (%) (Auto) 5.8 % (0.0-3.0) H Basophils (%) (Auto) 1.1 % (0.0-2.0) Sodium Level 131 MMOL/L (136-145) L Potassium Level 4.6 MMOL/L (3.5-5.1) Chloride Level 97 MMOL/L (98-107) L Carbon Dioxide Level 18 MMOL/L (21-32) L Anion Gap 17 mmol/L (5-15) H Blood Urea Nitrogen 57 mg/dL (7-18) H Creatinine 6.8 MG/DL (0.55-1.30) H Estimat Glomerular Filtration Rate 7.5 mL/min (>60) Glucose Level 155 MG/DL (74-106) H Calcium Level 9.2 MG/DL (8.5-10.1) Phosphorus Level 6.0 MG/DL (2.5-4.9) H Magnesium Level 2.5 MG/DL (1.8-2.4) H Total Bilirubin 0.5 MG/DL (0.2-1.0) Aspartate Amino Transf (AST/SGOT) 17 U/L (15-37) Alanine Aminotransferase (ALT/SGPT) 24 U/L (12-78) Alkaline Phosphatase 355 U/L (46-116) H Total Protein 7.8 G/DL (6.4-8.2) Albumin 3.4 G/DL (3.4-5.0) Globulin 4.4 g/dL Albumin/Globulin Ratio 0.8 (1.0-2.7) L Current Medications Medications (Trade) Dose Ordered Sig/Josi Route PRN Reason Start Time Stop Time Status Last Admin Dose Admin Acetaminophen (Tylenol) 650 mg Q4H PRN ORAL Mild Pain/Temp > 100.5 01/30/20 19:00 02/24/20 18:59 01/31/20 17:55 Albuterol/ Ipratropium (Albuterol/ Ipratropium) 3 ml Q4HRT PRN HHN Shortness of Breath 02/01/20 10:15 02/06/20 10:14 Amlodipine Besylate (Norvasc) 10 mg DAILY ORAL 01/31/20 09:00 02/25/20 08:59 02/02/20 09:31 Atorvastatin Calcium (Lipitor) 10 mg BEDTIME ORAL 01/30/20 21:00 02/24/20 20:59 02/01/20 20:29 Dextrose (Dextrose 50%) 25 ml Q30M PRN IV Hypoglycemia 01/30/20 19:00 02/24/20 18:59 Dextrose (Dextrose 50%) 50 ml Q30M PRN IV Hypoglycemia 01/30/20 19:00 02/24/20 18:59 Diphenhydramine HCl (Benadryl) 50 mg Q6H PRN ORAL Itching 01/30/20 19:00 02/24/20 18:59 02/01/20 05:33 Docusate Sodium (Colace) 100 mg TWICE A DAY ORAL 01/31/20 09:00 02/24/20 17:59 02/02/20 09:31 Epoetin Jose De Jesus (Epoetin Jose De Jesus(ESRD on dialysis)) 6,000 unit SUN-SUN-SUN SUBQ 01/30/20 21:00 02/25/20 20:59 01/30/20 20:32 Gabapentin (Neurontin) 300 mg THREE TIMES A DAY ORAL 01/31/20 09:00 02/24/20 17:59 02/02/20 12:14 Heparin Sodium (Porcine) (Heparin 5000 units/ml) 5,000 units EVERY 12 HOURS SUBQ 01/30/20 21:00 02/25/20 09:44 02/02/20 09:32 Hydralazine HCl (Apresoline) 25 mg Q4H PRN ORAL For High Blood Pressure 01/30/20 19:00 02/24/20 18:59 01/30/20 20:31 Hydralazine HCl (Apresoline) 100 mg Q8H ORAL 01/31/20 02:00 02/24/20 17:59 02/02/20 09:30 Insulin Aspart (NovoLOG) BEFORE MEALS AND HS SUBQ 01/30/20 21:00 02/24/20 16:29 02/01/20 20:43 Lorazepam (Ativan) 1 mg Q6H PRN ORAL For Anxiety 02/01/20 13:00 02/03/20 12:59 Pantoprazole (Protonix) 40 mg DAILY ORAL 01/31/20 09:00 02/25/20 08:59 02/02/20 09:30 Polyethylene Glycol (Miralax) 17 gm DAILYPRN PRN ORAL Constipation 01/30/20 19:00 02/29/20 18:59 02/02/20 10:24 Pyridoxine HCl (Vitamin B6) 50 mg DAILY ORAL 01/31/20 09:00 02/25/20 08:59 02/02/20 09:31 Sevelamer Carbonate (Renvela) 1,600 mg THREE TIMES A DAY ORAL 01/31/20 09:00 02/28/20 17:59 02/02/20 12:14 Thiamine HCl (Vitamin B1) 100 mg DAILY ORAL 01/31/20 09:00 02/25/20 11:44 02/02/20 09:30 Vancomycin HCl (Vanco rx to dose) 1 ea DAILY PRN MISC Per rx protocol 01/30/20 19:00 02/29/20 18:59 Mic Long MD Feb 02, 2020 13:50
--- NOTE | 2020-02-02 15:24 | General Progress Note ---
Assessment/Plan Assessment/Plan: (1) Morbid Obesity (2) Peripheral Neuropathy (3) Lumbar DDD (4) Lumbar Spondylosis (5) Lumbar Radiculopathy Patient to be continued on [place] D/w Dr. Santiago and he concurred. Subjective Date patient seen: Feb 02, 2020 Time patient seen: 02:15 - pm Allergies: Coded Allergies: NO KNOWN ALLERGIES (Unverified Allergy, Unknown, 10/15/15) Subjective Constitutional: Reports: no symptoms Eye: Reports: blurred vision ENT: Reports: no symptoms Respiratory: Reports: no symptoms Cardiovascular: Reports: no symptoms Gastrointestinal: Reports: no symptoms Genitourinary: Reports: no symptoms Musculoskeletal: Reports: back pain Skin: Reports: no symptoms Psychiatric: Reports: no symptoms Neurological: Reports: tingling, focal weakness Endocrine: Reports: no symptoms Hematologic/Lymphatic: Reports: no symptoms SUBJECTIVE: Patient is in bed and has no signs of pain or distress. Pain has been stable on the norco. No new complaints at this time. Objective Last 24 Hour Vital Signs Date Time Temp Pulse Resp B/P (MAP) Pulse Ox O2 Delivery O2 Flow Rate FiO2 02/02/20 12:00 97.6 78 17 123/81 (95) 97 02/02/20 09:31 63 134/56 02/02/20 09:30 134/56 02/02/20 09:00 Room Air 02/02/20 08:00 98.3 63 19 134/56 (82) 98 02/02/20 07:00 70 20 97 Room Air 21 02/02/20 04:00 98.2 66 19 142/58 (86) 96 02/02/20 01:48 134/56 02/02/20 00:00 97.9 63 19 134/56 (82) 95 02/01/20 21:00 Room Air 02/01/20 20:00 97.8 65 19 125/53 (77) 96 02/01/20 18:26 153/61 02/01/20 16:00 97.3 64 20 128/58 (81) 96 Intake and Output 02/01/20 02/02/20 19:00 07:00 Intake Total 2000 ml 400 ml Balance 2000 ml 400 ml Intake Oral 400 ml Hemodialysis 2000 ml # Voids 1 Laboratory Tests 02/02/20 09:35: White Blood Count 7.2, Red Blood Count 3.95L, Hemoglobin 9.6L, Hematocrit 31.6L , Mean Corpuscular Volume 80, Mean Corpuscular Hemoglobin 24.3L, Mean Corpuscular Hemoglobin Concent 30.4L, Red Cell Distribution Width 16.6H, Platelet Count 224, Mean Platelet Volume 5.9L, Neutrophils (%) (Auto) 58.7, Lymphocytes (%) (Auto) 23.1, Monocytes (%) (Auto) 11.2H, Eosinophils (%) (Auto) 5.8H, Basophils (%) (Auto) 1.1, Sodium Level 131L, Potassium Level 4.6, Chloride Level 97L, Carbon Dioxide Level 18L, Anion Gap 17H, Blood Urea Nitrogen 57H, Creatinine 6.8H, Estimat Glomerular Filtration Rate 7.5, Glucose Level 155H, Calcium Level 9.2, Phosphorus Level 6.0H, Magnesium Level 2.5H, Total Bilirubin 0.5, Aspartate Amino Transf (AST/SGOT) 17, Alanine Aminotransferase (ALT/SGPT) 24, Alkaline Phosphatase 355H, Total Protein 7.8, Albumin 3.4, Globulin 4.4, Albumin/Globulin Ratio 0.8L Height (Feet): 5 Height (Inches): 9.00 Weight (Pounds): 268 Objective General Appearance: no apparent distress, alert HEENT: normocephalic, atraumatic Neck: non-tender, normal alignment Respiratory/Chest: decreased breath sounds Cardiovascular/Chest: normal rate, regular rhythm Abdomen: non tender, soft Extremities: non-tender Neurologic: alert, responsive Johnnie Isidro Feb 02, 2020 15:24
[2020-02-02 16:00] VITALS: BP 129/67
--- NOTE | 2020-02-02 19:47 | Cardiology Progress Note ---
Assessment/Plan Assessment/Plan 1. Altered mentation, seemed to improve. 2. History of coronary artery disease, status post coronary artery stenting x2 in 2010. 3. Diabetes mellitus. 4. End-stage renal disease, on hemodialysis. 5. Morbid obesity. 6. Bacteremia. 7. Bleeding from dialysis site. 8. Possible urinary tract infection. 9. pulm htn venous dupelx neg tel sinus / atrial pacing ventricula sensing talita time i have seen her she si sleeping i wounder if has obesity hypoventilation syndrome with resultant pulm htn trop neg ekg neg for ischemia pt with persistent bacteremia id has requested CLAY i have discussed with pt the procedure and its risks and possible complication , i have told her to thinks about the proceddure and to sign consent for if she wishes to have the procedure or donot sign the consent if she dose not want the procedure she indicates she this and improtant test as seh want to know herself if anythign wrong with her heart valves and she would like to proceed she will discus with her fmaily as well i will d/w pulm if ok form the pulm view posit as well Subjective Cardiovascular: Denies: chest pain, palpitations Respiratory: Denies: shortness of breath Gastrointestinal/Abdominal: Denies: abdominal pain, difficulty swallowing Genitourinary: Denies: burning Objective Last 24 Hour Vital Signs Date Time Temp Pulse Resp B/P (MAP) Pulse Ox O2 Delivery O2 Flow Rate FiO2 02/02/20 17:28 129/67 02/02/20 16:00 97.1 73 19 129/67 (87) 98 02/02/20 12:00 97.6 78 17 123/81 (95) 97 02/02/20 10:17 97.1 02/02/20 09:31 63 134/56 02/02/20 09:30 134/56 02/02/20 09:00 Room Air 02/02/20 08:00 98.3 63 19 134/56 (82) 98 02/02/20 07:00 70 20 97 Room Air 21 02/02/20 04:00 98.2 66 19 142/58 (86) 96 02/02/20 01:48 134/56 02/02/20 00:00 97.9 63 19 134/56 (82) 95 02/01/20 21:00 Room Air 02/01/20 20:00 97.8 65 19 125/53 (77) 96 General Appearance: alert, obese, patient on isolation Neck: supple Cardiovascular: regular rhythm Respiratory/Chest: lungs clear Abdomen: normal bowel sounds, non tender, soft Extremities: no swelling Intake and Output 02/01/20 02/02/20 19:00 07:00 Intake Total 2000 ml 400 ml Balance 2000 ml 400 ml Intake Oral 400 ml Hemodialysis 2000 ml # Voids 1 Laboratory Tests Test 02/02/20 09:35 White Blood Count 7.2 K/UL (4.8-10.8) Red Blood Count 3.95 M/UL (4.20-5.40) L Hemoglobin 9.6 G/DL (12.0-16.0) L Hematocrit 31.6 % (37.0-47.0) L Mean Corpuscular Volume 80 FL (80-99) Mean Corpuscular Hemoglobin 24.3 PG (27.0-31.0) L Mean Corpuscular Hemoglobin Concent 30.4 G/DL (32.0-36.0) L Red Cell Distribution Width 16.6 % (11.6-14.8) H Platelet Count 224 K/UL (150-450) Mean Platelet Volume 5.9 FL (6.5-10.1) L Neutrophils (%) (Auto) 58.7 % (45.0-75.0) Lymphocytes (%) (Auto) 23.1 % (20.0-45.0) Monocytes (%) (Auto) 11.2 % (1.0-10.0) H Eosinophils (%) (Auto) 5.8 % (0.0-3.0) H Basophils (%) (Auto) 1.1 % (0.0-2.0) Sodium Level 131 MMOL/L (136-145) L Potassium Level 4.6 MMOL/L (3.5-5.1) Chloride Level 97 MMOL/L (98-107) L Carbon Dioxide Level 18 MMOL/L (21-32) L Anion Gap 17 mmol/L (5-15) H Blood Urea Nitrogen 57 mg/dL (7-18) H Creatinine 6.8 MG/DL (0.55-1.30) H Estimat Glomerular Filtration Rate 7.5 mL/min (>60) Glucose Level 155 MG/DL (74-106) H Calcium Level 9.2 MG/DL (8.5-10.1) Phosphorus Level 6.0 MG/DL (2.5-4.9) H Magnesium Level 2.5 MG/DL (1.8-2.4) H Total Bilirubin 0.5 MG/DL (0.2-1.0) Aspartate Amino Transf (AST/SGOT) 17 U/L (15-37) Alanine Aminotransferase (ALT/SGPT) 24 U/L (12-78) Alkaline Phosphatase 355 U/L (46-116) H Total Protein 7.8 G/DL (6.4-8.2) Albumin 3.4 G/DL (3.4-5.0) Globulin 4.4 g/dL Albumin/Globulin Ratio 0.8 (1.0-2.7) L Microbiology Date/Time Source Procedure Growth Status 01/31/20 09:30 Blood Blood Culture - Preliminary Resulted 01/31/20 09:15 Blood Blood Culture - Preliminary NO GROWTH AFTER 24 HOURS Resulted Wilfredo Reyna MD Feb 02, 2020 19:47
[2020-02-02 20:00] VITALS: BP 138/79
[2020-02-02] MEDS: Epoetin Alfa-EPBX(ESRD on dialysis)3000 units/ml vial SUBQ SCH (20:26)
[2020-02-03] VITALS: BP 136/73
[2020-02-03] MEDS: HydrALAZINE 50mg tab ORAL SCH ×3 (02:00→17:05)
[2020-02-03 04:00] VITALS: BP 127/69
[2020-02-03] MEDS: NovoLOG Insulin Flexpen SUBQ SCH ×4 (05:33→20:52)
--- NOTE | 2020-02-03 06:13 | General Progress Note ---
Assessment/Plan Problem List: (1) Blindness of both eyes ICD Codes: H54.0 - Blindness SNOMED: 328282490 (2) Accelerated hypertension ICD Codes: I10 - Essential (primary) hypertension SNOMED: 84108736 (3) Uncontrolled diabetes mellitus ICD Codes: E11.9 - Type 2 diabetes mellitus without complications SNOMED: 446327478 (4) Hypoglycemia ICD Codes: E16.2 - Hypoglycemia, unspecified SNOMED: 820363283 Assessment/Plan: continue to hold scheduled diabetic medications hypoglycemia protocol in order low dose Novolog as needed Subjective Allergies: Coded Allergies: NO KNOWN ALLERGIES (Unverified Allergy, Unknown, 10/15/15) All Systems: reviewed and negative except above Subjective events noted glucose values are stable without hypoglycemia Item Value Date Time Bedside Blood Glucose 91 mg/dl 02/03/20 0533 Bedside Blood Glucose 103 mg/dl 02/02/20 1630 Bedside Blood Glucose 124 mg/dl H 02/02/20 1130 Bedside Blood Glucose 86 mg/dl 02/02/20 0630 Objective Last 24 Hour Vital Signs Date Time Temp Pulse Resp B/P (MAP) Pulse Ox O2 Delivery O2 Flow Rate FiO2 02/03/20 04:00 98.2 66 18 127/69 (88) 97 02/03/20 02:00 122/74 02/03/20 00:00 98.6 66 18 136/73 (94) 98 02/02/20 21:05 Room Air 02/02/20 21:04 97.1 02/02/20 20:00 98.9 67 18 138/79 (98) 98 02/02/20 17:28 129/67 02/02/20 16:00 97.1 73 19 129/67 (87) 98 02/02/20 12:00 97.6 78 17 123/81 (95) 97 02/02/20 10:17 97.1 02/02/20 09:31 63 134/56 02/02/20 09:30 134/56 02/02/20 09:00 Room Air 02/02/20 08:00 98.3 63 19 134/56 (82) 98 02/02/20 07:00 70 20 97 Room Air 21 Intake and Output 02/02/20 02/03/20 19:00 07:00 Intake Total 1200 ml Balance 1200 ml Other 1200 ml Laboratory Tests 02/02/20 09:35: White Blood Count 7.2, Red Blood Count 3.95L, Hemoglobin 9.6L, Hematocrit 31.6L , Mean Corpuscular Volume 80, Mean Corpuscular Hemoglobin 24.3L, Mean Corpuscular Hemoglobin Concent 30.4L, Red Cell Distribution Width 16.6H, Platelet Count 224, Mean Platelet Volume 5.9L, Neutrophils (%) (Auto) 58.7, Lymphocytes (%) (Auto) 23.1, Monocytes (%) (Auto) 11.2H, Eosinophils (%) (Auto) 5.8H, Basophils (%) (Auto) 1.1, Sodium Level 131L, Potassium Level 4.6, Chloride Level 97L, Carbon Dioxide Level 18L, Anion Gap 17H, Blood Urea Nitrogen 57H, Creatinine 6.8H, Estimat Glomerular Filtration Rate 7.5, Glucose Level 155H, Calcium Level 9.2, Phosphorus Level 6.0H, Magnesium Level 2.5H, Total Bilirubin 0.5, Aspartate Amino Transf (AST/SGOT) 17, Alanine Aminotransferase (ALT/SGPT) 24, Alkaline Phosphatase 355H, Total Protein 7.8, Albumin 3.4, Globulin 4.4, Albumin/Globulin Ratio 0.8L Height (Feet): 5 Height (Inches): 9.00 Weight (Pounds): 268 General Appearance: no apparent distress Neck: normal alignment Cardiovascular: normal rate Abdomen: normal bowel sounds Objective Current Medications Medications (Trade) Dose Ordered Sig/Josi Route PRN Reason Start Time Stop Time Status Last Admin Dose Admin Acetaminophen (Tylenol) 650 mg Q4H PRN ORAL Mild Pain/Temp > 100.5 01/30/20 19:00 02/24/20 18:59 01/31/20 17:55 Acetaminophen/ Hydrocodone Bitart ([place] 10/325) 1 tab Q6H PRN ORAL Severe Pain (Pain Scale 7-10) 02/02/20 15:30 02/09/20 15:29 02/02/20 20:32 Albuterol/ Ipratropium (Albuterol/ Ipratropium) 3 ml Q4HRT PRN HHN Shortness of Breath 02/01/20 10:15 02/06/20 10:14 Amlodipine Besylate (Norvasc) 10 mg DAILY ORAL 01/31/20 09:00 02/25/20 08:59 02/02/20 09:31 Atorvastatin Calcium (Lipitor) 10 mg BEDTIME ORAL 01/30/20 21:00 02/24/20 20:59 02/02/20 20:26 Dextrose (Dextrose 50%) 25 ml Q30M PRN IV Hypoglycemia 01/30/20 19:00 02/24/20 18:59 Dextrose (Dextrose 50%) 50 ml Q30M PRN IV Hypoglycemia 01/30/20 19:00 02/24/20 18:59 Diphenhydramine HCl (Benadryl) 50 mg Q6H PRN ORAL Itching 01/30/20 19:00 02/24/20 18:59 02/03/20 00:07 Docusate Sodium (Colace) 100 mg TWICE A DAY ORAL 01/31/20 09:00 02/24/20 17:59 02/02/20 17:28 Epoetin Jose De Jesus (Epoetin Jose De Jesus(ESRD on dialysis)) 6,000 unit SUN- SUBQ 01/30/20 21:00 02/25/20 20:59 02/02/20 20:26 Gabapentin (Neurontin) 300 mg THREE TIMES A DAY ORAL 01/31/20 09:00 02/24/20 17:59 02/02/20 17:28 Heparin Sodium (Porcine) (Heparin 5000 units/ml) 5,000 units EVERY 12 HOURS SUBQ 01/30/20 21:00 02/25/20 09:44 02/02/20 09:32 Hydralazine HCl (Apresoline) 25 mg Q4H PRN ORAL For High Blood Pressure 02/02/20 14:30 03/03/20 14:29 Hydralazine HCl (Apresoline) 100 mg Q8H ORAL 01/31/20 02:00 02/24/20 17:59 02/02/20 17:28 Insulin Aspart (NovoLOG) BEFORE MEALS AND HS SUBQ 01/30/20 21:00 02/24/20 16:29 02/01/20 20:43 Lorazepam (Ativan) 1 mg Q6H PRN ORAL For Anxiety 02/01/20 13:00 02/03/20 12:59 Pantoprazole (Protonix) 40 mg DAILY ORAL 01/31/20 09:00 02/25/20 08:59 02/02/20 09:30 Polyethylene Glycol (Miralax) 17 gm DAILYPRN PRN ORAL Constipation 01/30/20 19:00 02/29/20 18:59 02/02/20 10:24 Pyridoxine HCl (Vitamin B6) 50 mg DAILY ORAL 01/31/20 09:00 02/25/20 08:59 02/02/20 09:31 Sevelamer Carbonate (Renvela) 1,600 mg THREE TIMES A DAY ORAL 01/31/20 09:00 02/28/20 17:59 02/02/20 17:28 Thiamine HCl (Vitamin B1) 100 mg DAILY ORAL 01/31/20 09:00 02/25/20 11:44 02/02/20 09:30 Vancomycin HCl (Vanco rx to dose) 1 ea DAILY PRN MISC Per rx protocol 01/30/20 19:00 02/29/20 18:59 Franko Rogel MD Feb 03, 2020 06:13
[2020-02-03 08:00] VITALS: BP 136/60
[2020-02-03] MEDS: Thiamine 100mg tab ORAL SCH (09:20)
[2020-02-03] MEDS: Docusate 100mg cap ORAL SCH ×2 (09:21→17:04)
[2020-02-03] MEDS: Pyridoxine 50mg tab ORAL SCH (09:21)
[2020-02-03] MEDS: Cefepime HCl 500 MG in D5W 55 ML IV SCH (09:22)
[2020-02-03] MEDS: Heparin 5000 units/ml inj SUBQ SCH ×4 (09:23→20:51)
[2020-02-03 12:00] VITALS: BP 138/65
--- NOTE | 2020-02-03 12:01 | Infectious Diseases Prog Note ---
Assessment/Plan Assessment/Plan ASSESSMENT: The patient is a 64-year-old female with positive blood culture CONS ,persistent 3/7 Bc: (1/2)CoNS and GNR 3/4 Bc: CoNS - (outside facility, # of the +ve cultures are not clear) A 2D echo from outside facility did not show any evidence of vegetation Normal white blood cells. Afebrile. as per Carido pt is high risk for LCAY: Diabetes. CHF. ESRD. Hypertension. Obesity. PLAN: cont Cefepime # 1 continue the patient on vancomycin, day # 8 ( duration to be determined ) Monitor CBC. Monitor BMP. Monitor cultures (blood) care was DW cardio . Subjective Allergies: Coded Allergies: NO KNOWN ALLERGIES (Unverified Allergy, Unknown, 10/15/15) Subjective I was paged this AM : +ve blood cx for GNR as well as GPC Objective Vital Signs Last 24 Hour Vital Signs Date Time Temp Pulse Resp B/P (MAP) Pulse Ox O2 Delivery O2 Flow Rate FiO2 02/03/20 09:00 Room Air 02/03/20 08:00 98.2 64 18 136/60 (85) 97 02/03/20 07:20 64 20 96 Room Air 21 02/03/20 04:00 98.2 66 18 127/69 (88) 97 02/03/20 02:00 122/74 02/03/20 00:00 98.6 66 18 136/73 (94) 98 02/02/20 21:05 Room Air 02/02/20 21:04 97.1 02/02/20 20:00 98.9 67 18 138/79 (98) 98 02/02/20 17:28 129/67 02/02/20 16:00 97.1 73 19 129/67 (87) 98 02/02/20 12:00 97.6 78 17 123/81 (95) 97 Height (Feet): 5 Height (Inches): 9.00 Weight (Pounds): 268 HEENT: anicteric Respiratory/Chest: no respiratory distress Cardiovascular: normal rate Abdomen: no organomegaly Current Medications Medications (Trade) Dose Ordered Sig/Josi Route PRN Reason Start Time Stop Time Status Last Admin Dose Admin Acetaminophen (Tylenol) 650 mg Q4H PRN ORAL Mild Pain/Temp > 100.5 01/30/20 19:00 02/24/20 18:59 01/31/20 17:55 Acetaminophen/ Hydrocodone Bitart ([place] 10/325) 1 tab Q6H PRN ORAL Severe Pain (Pain Scale 7-10) 02/02/20 15:30 02/09/20 15:29 02/02/20 20:32 Albuterol/ Ipratropium (Albuterol/ Ipratropium) 3 ml Q4HRT PRN HHN Shortness of Breath 02/01/20 10:15 02/06/20 10:14 Amlodipine Besylate (Norvasc) 10 mg DAILY ORAL 01/31/20 09:00 02/25/20 08:59 02/02/20 09:31 Atorvastatin Calcium (Lipitor) 10 mg BEDTIME ORAL 01/30/20 21:00 02/24/20 20:59 02/02/20 20:26 Cefepime HCl 500 mg/Dextrose 55 ml @ 110 mls/hr Q24H IV 02/03/20 09:00 02/10/20 08:59 02/03/20 09:22 Dextrose (Dextrose 50%) 25 ml Q30M PRN IV Hypoglycemia 01/30/20 19:00 02/24/20 18:59 Dextrose (Dextrose 50%) 50 ml Q30M PRN IV Hypoglycemia 01/30/20 19:00 02/24/20 18:59 Diphenhydramine HCl (Benadryl) 50 mg Q6H PRN ORAL Itching 01/30/20 19:00 02/24/20 18:59 02/03/20 00:07 Docusate Sodium (Colace) 100 mg TWICE A DAY ORAL 01/31/20 09:00 02/24/20 17:59 02/03/20 09:21 Epoetin Jose De Jesus (Epoetin Jose De Jesus(ESRD on dialysis)) 6,000 unit SUN-SUN-SUN SUBQ 01/30/20 21:00 02/25/20 20:59 02/02/20 20:26 Gabapentin (Neurontin) 300 mg THREE TIMES A DAY ORAL 01/31/20 09:00 02/24/20 17:59 02/03/20 09:21 Heparin Sodium (Porcine) (Heparin 5000 units/ml) 5,000 units EVERY 12 HOURS SUBQ 01/30/20 21:00 02/25/20 09:44 02/02/20 09:32 Hydralazine HCl (Apresoline) 25 mg Q4H PRN ORAL For High Blood Pressure 02/02/20 14:30 03/03/20 14:29 Hydralazine HCl (Apresoline) 100 mg Q8H ORAL 01/31/20 02:00 02/24/20 17:59 02/02/20 17:28 Insulin Aspart (NovoLOG) BEFORE MEALS AND HS SUBQ 01/30/20 21:00 02/24/20 16:29 02/01/20 20:43 Lorazepam (Ativan) 1 mg Q6H PRN ORAL For Anxiety 02/01/20 13:00 02/03/20 12:59 Pantoprazole (Protonix) 40 mg DAILY ORAL 01/31/20 09:00 02/25/20 08:59 02/03/20 09:21 Polyethylene Glycol (Miralax) 17 gm DAILYPRN PRN ORAL Constipation 01/30/20 19:00 02/29/20 18:59 02/02/20 10:24 Pyridoxine HCl (Vitamin B6) 50 mg DAILY ORAL 01/31/20 09:00 02/25/20 08:59 02/03/20 09:21 Sevelamer Carbonate (Renvela) 1,600 mg THREE TIMES A DAY ORAL 01/31/20 09:00 02/28/20 17:59 02/03/20 09:21 Thiamine HCl (Vitamin B1) 100 mg DAILY ORAL 01/31/20 09:00 02/25/20 11:44 02/03/20 09:20 Vancomycin HCl (Vanco rx to dose) 1 ea DAILY PRN MISC Per rx protocol 01/30/20 19:00 02/29/20 18:59 Mic Long MD Feb 03, 2020 12:01
--- NOTE | 2020-02-03 12:22 | Cardiology Progress Note ---
Assessment/Plan Assessment/Plan 1. Altered mentation, seemed to improve. 2. History of coronary artery disease, status post coronary artery stenting x2 in 2010. 3. Diabetes mellitus. 4. End-stage renal disease, on hemodialysis. 5. Morbid obesity. 6. Bacteremia. 7. Bleeding from dialysis site. 8. Possible urinary tract infection. 9. pulm htn venous dupelx neg tel sinus / atrial pacing ventricula sensing talita time i have seen her she si sleeping i wounder if has obesity hypoventilation syndrome with resultant pulm htn trop neg ekg neg for ischemia pt with persistent bacteremia id has requested MAYCO case d/w pulm who felt pt high risk for moderate sedation and recommneded intubation for johanny procedure in rediscussing with ID regarding the risk for intubation felt at this time the lizzy of longer term empiric treatment may be less than the risk of the procedure so will not perform mayco at this time. Subjective Cardiovascular: Denies: chest pain, lightheadedness Respiratory: Denies: shortness of breath Gastrointestinal/Abdominal: Denies: abdominal pain Genitourinary: Denies: burning Objective Last 24 Hour Vital Signs Date Time Temp Pulse Resp B/P (MAP) Pulse Ox O2 Delivery O2 Flow Rate FiO2 02/03/20 09:00 Room Air 02/03/20 08:00 98.2 64 18 136/60 (85) 97 02/03/20 07:20 64 20 96 Room Air 21 02/03/20 04:00 98.2 66 18 127/69 (88) 97 02/03/20 02:00 122/74 02/03/20 00:00 98.6 66 18 136/73 (94) 98 02/02/20 21:05 Room Air 02/02/20 21:04 97.1 02/02/20 20:00 98.9 67 18 138/79 (98) 98 02/02/20 17:28 129/67 02/02/20 16:00 97.1 73 19 129/67 (87) 98 General Appearance: no apparent distress, alert, obese, patient on isolation Neck: supple Cardiovascular: normal rate Respiratory/Chest: lungs clear Abdomen: normal bowel sounds, non tender, soft Extremities: no swelling Intake and Output 02/02/20 02/03/20 19:00 07:00 Intake Total 1200 ml Balance 1200 ml Other 1200 ml Wilfredo Reyna MD Feb 03, 2020 12:22
--- NOTE | 2020-02-03 12:35 | Nephrology Progress Note ---
Assessment/Plan Problem List: (1) ESRD (end stage renal disease) on dialysis (2) Hypoglycemia (3) Diabetes (4) Anemia (5) Patient is [employer] (6) Pacemaker (7) Obese (8) HTN (hypertension) Assessment End stage renal disease on dialysis. Has a right upper arm dialysis fistula as Acces . Getting dialysis Sunday. acute encephalopathy due to hypoglycemia h/o UTI (urinary tract infection) & Pyelonephritis morbid obesity Anemia / Jehova's witness CAD previous stent HTN- hypertensive urgency upon arrival to [facility]. s/p AVG DM 2 bilateral eye blindness h/o CHF Pacemaker Plan Last dialyzed January 31 Next dialysis February 02 Discharge planning in process EPO, thiamin and B6 Phos binders diet to renal , medium CHO per consultants Subjective ROS Limited/Unobtainable: No Constitutional: Reports: malaise Objective Objective Last 24 Hour Vital Signs Date Time Temp Pulse Resp B/P (MAP) Pulse Ox O2 Delivery O2 Flow Rate FiO2 02/03/20 09:00 Room Air 02/03/20 08:00 98.2 64 18 136/60 (85) 97 02/03/20 07:20 64 20 96 Room Air 21 02/03/20 04:00 98.2 66 18 127/69 (88) 97 02/03/20 02:00 122/74 02/03/20 00:00 98.6 66 18 136/73 (94) 98 02/02/20 21:05 Room Air 02/02/20 21:04 97.1 02/02/20 20:00 98.9 67 18 138/79 (98) 98 02/02/20 17:28 129/67 02/02/20 16:00 97.1 73 19 129/67 (87) 98 Intake and Output 02/02/20 02/03/20 18:59 06:59 Intake Total 1200 ml Balance 1200 ml Other 1200 ml Height (Feet): 5 Height (Inches): 9.00 Weight (Pounds): 268 General Appearance: no apparent distress Cardiovascular: normal rate Respiratory/Chest: decreased breath sounds Abdomen: distended Objective no change Bryan Hunter MD Feb 03, 2020 12:35
--- NOTE | 2020-02-03 12:57 | Pulmonology Progress Note ---
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 for Subjective ROS Limited/Unobtainable: No Constitutional: Reports: no symptoms HEENT: Repors: no symptoms Allergies: Coded Allergies: NO KNOWN ALLERGIES (Unverified Allergy, Unknown, 10/15/15) Objective Last 24 Hour Vital Signs Date Time Temp Pulse Resp B/P (MAP) Pulse Ox O2 Delivery O2 Flow Rate FiO2 02/03/20 09:00 Room Air 02/03/20 08:00 98.2 64 18 136/60 (85) 97 02/03/20 07:20 64 20 96 Room Air 21 02/03/20 04:00 98.2 66 18 127/69 (88) 97 02/03/20 02:00 122/74 02/03/20 00:00 98.6 66 18 136/73 (94) 98 02/02/20 21:05 Room Air 02/02/20 21:04 97.1 02/02/20 20:00 98.9 67 18 138/79 (98) 98 02/02/20 17:28 129/67 02/02/20 16:00 97.1 73 19 129/67 (87) 98 Intake and Output 02/02/20 02/03/20 19:00 07:00 Intake Total 1200 ml Balance 1200 ml Other 1200 ml Objective no new complains General Appearance: WD/WN HEENT: normocephalic, atraumatic Respiratory/Chest: chest wall non-tender, lungs clear Cardiovascular: normal peripheral pulses, normal rate Abdomen: normal bowel sounds, soft, non tender Extremities: no cyanosis Current Medications Medications (Trade) Dose Ordered Sig/Josi Route PRN Reason Start Time Stop Time Status Last Admin Dose Admin Acetaminophen (Tylenol) 650 mg Q4H PRN ORAL Mild Pain/Temp > 100.5 01/30/20 19:00 02/24/20 18:59 01/31/20 17:55 Acetaminophen/ Hydrocodone Bitart ([place] 10/325) 1 tab Q6H PRN ORAL Severe Pain (Pain Scale 7-10) 02/02/20 15:30 02/09/20 15:29 02/02/20 20:32 Albuterol/ Ipratropium (Albuterol/ Ipratropium) 3 ml Q4HRT PRN HHN Shortness of Breath 02/01/20 10:15 02/06/20 10:14 Amlodipine Besylate (Norvasc) 10 mg DAILY ORAL 01/31/20 09:00 02/25/20 08:59 02/02/20 09:31 Atorvastatin Calcium (Lipitor) 10 mg BEDTIME ORAL 01/30/20 21:00 02/24/20 20:59 02/02/20 20:26 Cefepime HCl 500 mg/Dextrose 55 ml @ 110 mls/hr Q24H IV 02/03/20 09:00 02/10/20 08:59 02/03/20 09:22 Dextrose (Dextrose 50%) 25 ml Q30M PRN IV Hypoglycemia 01/30/20 19:00 02/24/20 18:59 Dextrose (Dextrose 50%) 50 ml Q30M PRN IV Hypoglycemia 01/30/20 19:00 02/24/20 18:59 Diphenhydramine HCl (Benadryl) 50 mg Q6H PRN ORAL Itching 01/30/20 19:00 02/24/20 18:59 02/03/20 00:07 Docusate Sodium (Colace) 100 mg TWICE A DAY ORAL 01/31/20 09:00 02/24/20 17:59 02/03/20 09:21 Epoetin Jose De Jesus (Epoetin Jose De Jesus(ESRD on dialysis)) 6,000 unit SUN-SUN-SUN SUBQ 01/30/20 21:00 02/25/20 20:59 02/02/20 20:26 Gabapentin (Neurontin) 300 mg THREE TIMES A DAY ORAL 01/31/20 09:00 02/24/20 17:59 02/03/20 12:08 Heparin Sodium (Porcine) (Heparin 5000 units/ml) 5,000 units EVERY 12 HOURS SUBQ 01/30/20 21:00 02/25/20 09:44 02/02/20 09:32 Hydralazine HCl (Apresoline) 25 mg Q4H PRN ORAL For High Blood Pressure 02/02/20 14:30 03/03/20 14:29 Hydralazine HCl (Apresoline) 100 mg Q8H ORAL 01/31/20 02:00 02/24/20 17:59 02/02/20 17:28 Insulin Aspart (NovoLOG) BEFORE MEALS AND HS SUBQ 01/30/20 21:00 02/24/20 16:29 02/03/20 12:09 Lorazepam (Ativan) 1 mg Q6H PRN ORAL For Anxiety 02/01/20 13:00 02/03/20 12:59 Pantoprazole (Protonix) 40 mg DAILY ORAL 01/31/20 09:00 02/25/20 08:59 02/03/20 09:21 Polyethylene Glycol (Miralax) 17 gm DAILYPRN PRN ORAL Constipation 01/30/20 19:00 02/29/20 18:59 02/02/20 10:24 Pyridoxine HCl (Vitamin B6) 50 mg DAILY ORAL 01/31/20 09:00 02/25/20 08:59 02/03/20 09:21 Sevelamer Carbonate (Renvela) 1,600 mg THREE TIMES A DAY ORAL 01/31/20 09:00 02/28/20 17:59 02/03/20 12:09 Thiamine HCl (Vitamin B1) 100 mg DAILY ORAL 01/31/20 09:00 02/25/20 11:44 02/03/20 09:20 Vancomycin HCl (Vanco rx to dose) 1 ea DAILY PRN MISC Per rx protocol 01/30/20 19:00 02/29/20 18:59 Meghana Murillo MD Feb 03, 2020 12:57
--- NOTE | 2020-02-03 14:36 | General Progress Note ---
Assessment/Plan Problem List: (1) AMS (altered mental status) ICD Codes: R41.82 - Altered mental status, unspecified SNOMED: 025158893 (2) Diabetes ICD Codes: E11.9 - Type 2 diabetes mellitus without complications SNOMED: 13786087 (3) HTN (hypertension) ICD Codes: I10 - Essential (primary) hypertension SNOMED: 68954500 (4) Anemia ICD Codes: D64.9 - Anemia, unspecified SNOMED: 378289512 (5) Morbid obesity ICD Codes: E66.01 - Morbid (severe) obesity due to excess calories SNOMED: 121034829, 07470225251537 (6) Blindness of both eyes ICD Codes: H54.0 - Blindness SNOMED: 490069148 (7) Intractable back pain ICD Codes: M54.9 - Dorsalgia, unspecified SNOMED: 079125741 (8) ESRD (end stage renal disease) on dialysis ICD Codes: N18.6 - End stage renal disease; Z99.2 - Dependence on renal dialysis SNOMED: 063711091 Status: stable, progressing Assessment/Plan: o2p ulm tx pt diet dialysis cbc bmp am dc w hh if clear Subjective Constitutional: Reports: weakness Allergies: Coded Allergies: NO KNOWN ALLERGIES (Unverified Allergy, Unknown, 10/15/15) All Systems: reviewed and negative except above Subjective sleepy calm getting dialysis Objective Last 24 Hour Vital Signs Date Time Temp Pulse Resp B/P (MAP) Pulse Ox O2 Delivery O2 Flow Rate FiO2 02/03/20 12:00 97.1 70 18 138/65 (89) 97 02/03/20 09:00 Room Air 02/03/20 08:00 98.2 64 18 136/60 (85) 97 02/03/20 07:20 64 20 96 Room Air 21 02/03/20 04:00 98.2 66 18 127/69 (88) 97 02/03/20 02:00 122/74 02/03/20 00:00 98.6 66 18 136/73 (94) 98 02/02/20 21:05 Room Air 02/02/20 21:04 97.1 02/02/20 20:00 98.9 67 18 138/79 (98) 98 02/02/20 17:28 129/67 02/02/20 16:00 97.1 73 19 129/67 (87) 98 Intake and Output 02/02/20 02/03/20 19:00 07:00 Intake Total 1200 ml Balance 1200 ml Other 1200 ml Height (Feet): 5 Height (Inches): 9.00 Weight (Pounds): 268 General Appearance: lethargic EENT: normal ENT inspection Neck: normal alignment Cardiovascular: normal peripheral pulses, normal rate, regular rhythm Respiratory/Chest: chest wall non-tender, decreased breath sounds Abdomen: normal bowel sounds, non tender, soft Extremities: normal inspection Edema: no edema noted Arm (L), no edema noted Arm (R), no edema noted Leg (L), no edema noted Leg (R), no edema noted Pedal (L), no edema noted Pedal (R), no edema noted Generalized Neurologic: motor weakness Skin: normal pigmentation, warm/dry Roderick Henning DO Feb 03, 2020 14:36
[2020-02-03 16:00] VITALS: BP 138/62
[2020-02-03] MEDS: HYDROcodone/Acetamin 10/325 tab ORAL PRN ×2 (17:05→23:59)
[2020-02-03 20:00] VITALS: BP 144/67
[2020-02-04] VITALS: BP 139/59
[2020-02-04] MEDS: HydrALAZINE 50mg tab ORAL SCH ×3 (02:00→17:00)
[2020-02-04 04:00] VITALS: BP 133/63
[2020-02-04] MEDS: Miralax 17gm pkt ORAL PRN (04:30)
[2020-02-04 06:25] LABS: BASOPHILS % (AUTO) 0.8 % (0.0-2.0); EOSINOPHILS % (AUTO) 4.5 % (0.0-3.0); LYMPHOCYTES % (AUTO) 16.5 % (20.0-45.0); MEAN CORPUSCULAR VOLUME 79 FL (80-99); MONOCYTES % (AUTO) 12.7 % (1.0-10.0); NEUTROPHILS % (AUTO) 65.6 % (45.0-75.0); PLATELET COUNT 233 K/UL (150-450); RED BLOOD COUNT 3.66 M/UL (4.20-5.40); RED CELL DISTRIBUTION WIDTH 16.7 % (11.6-14.8); WHITE BLOOD COUNT 8.4 K/UL (4.8-10.8)
[2020-02-04] MEDS: NovoLOG Insulin Flexpen SUBQ SCH ×4 (06:30→21:00)
--- NOTE | 2020-02-04 06:30 | General Progress Note ---
Assessment/Plan Problem List: (1) Blindness of both eyes ICD Codes: H54.0 - Blindness SNOMED: 841100835 (2) Accelerated hypertension ICD Codes: I10 - Essential (primary) hypertension SNOMED: 45612083 (3) Uncontrolled diabetes mellitus ICD Codes: E11.9 - Type 2 diabetes mellitus without complications SNOMED: 652446181 (4) Hypoglycemia ICD Codes: E16.2 - Hypoglycemia, unspecified SNOMED: 532251851 Status: stable, progressing Assessment/Plan: continue to hold scheduled diabetic medications hypoglycemia protocol in order low dose Novolog as needed Subjective Allergies: Coded Allergies: NO KNOWN ALLERGIES (Unverified Allergy, Unknown, 10/15/15) All Systems: reviewed and negative except above Subjective events noted glucose values are stable without hypoglycemia Item Value Date Time Bedside Blood Glucose 122 mg/dl H 02/03/20 2100 Bedside Blood Glucose 86 mg/dl 02/03/20 1630 Bedside Blood Glucose 159 mg/dl H 02/03/20 1209 Bedside Blood Glucose 91 mg/dl 02/03/20 0533 Objective Last 24 Hour Vital Signs Date Time Temp Pulse Resp B/P (MAP) Pulse Ox O2 Delivery O2 Flow Rate FiO2 02/04/20 04:00 97.4 75 18 133/63 (86) 96 02/04/20 02:00 139/59 02/04/20 00:00 98.8 81 18 139/59 (85) 97 02/03/20 21:00 Room Air 02/03/20 20:07 68 20 94 Room Air 21 02/03/20 20:00 97.7 65 18 144/67 (92) 96 02/03/20 17:35 97.5 02/03/20 17:05 138/62 02/03/20 16:00 97.5 67 16 138/62 (87) 98 02/03/20 12:00 97.1 70 18 138/65 (89) 97 02/03/20 09:00 Room Air 02/03/20 08:00 98.2 64 18 136/60 (85) 97 02/03/20 07:20 64 20 96 Room Air 21 Intake and Output 02/03/20 02/04/20 19:00 07:00 Intake Total 2110 ml Balance 2110 ml IV Total 110 ml Hemodialysis 2000 ml # Voids 2 Laboratory Tests 02/03/20 18:18: Random Vancomycin Level 19.2 3/11/20 06:05: White Blood Count 8.4, Red Blood Count 3.66L, Hemoglobin 9.0L, Hematocrit 29.0L , Mean Corpuscular Volume 79L, Mean Corpuscular Hemoglobin 24.6L, Mean Corpuscular Hemoglobin Concent 31.1L, Red Cell Distribution Width 16.7H, Platelet Count 233, Mean Platelet Volume 5.8L, Neutrophils (%) (Auto) 65.6, Lymphocytes (%) (Auto) 16.5L, Monocytes (%) (Auto) 12.7H, Eosinophils (%) (Auto ) 4.5H, Basophils (%) (Auto) 0.8, Sodium Level [Pending], Potassium Level [ Pending], Chloride Level [Pending], Carbon Dioxide Level [Pending], Blood Urea Nitrogen [Pending], Creatinine [Pending], Estimat Glomerular Filtration Rate [ Pending], Glucose Level [Pending], Calcium Level [Pending], Phosphorus Level [ Pending], Magnesium Level [Pending], Total Bilirubin [Pending], Aspartate Amino Transf (AST/SGOT) [Pending], Alanine Aminotransferase (ALT/SGPT) [Pending], Alkaline Phosphatase [Pending], C-Reactive Protein, Quantitative [Pending], Pro- B-Type Natriuretic Peptide [Pending], Total Protein [Pending], Albumin [Pending] , Globulin [Pending] Height (Feet): 5 Height (Inches): 9.00 Weight (Pounds): 278 General Appearance: no apparent distress Neck: normal alignment Cardiovascular: normal rate Respiratory/Chest: decreased breath sounds Abdomen: normal bowel sounds Objective Current Medications Medications (Trade) Dose Ordered Sig/Josi Route PRN Reason Start Time Stop Time Status Last Admin Dose Admin Acetaminophen (Tylenol) 650 mg Q4H PRN ORAL Mild Pain/Temp > 100.5 01/30/20 19:00 02/24/20 18:59 01/31/20 17:55 Acetaminophen/ Hydrocodone Bitart ([place] 10/325) 1 tab Q6H PRN ORAL Severe Pain (Pain Scale 7-10) 02/02/20 15:30 02/09/20 15:29 02/03/20 23:59 Albuterol/ Ipratropium (Albuterol/ Ipratropium) 3 ml Q4HRT PRN HHN Shortness of Breath 02/01/20 10:15 02/06/20 10:14 Amlodipine Besylate (Norvasc) 10 mg DAILY ORAL 01/31/20 09:00 02/25/20 08:59 02/02/20 09:31 Atorvastatin Calcium (Lipitor) 10 mg BEDTIME ORAL 01/30/20 21:00 02/24/20 20:59 02/03/20 20:47 Cefepime HCl 500 mg/Dextrose 55 ml @ 110 mls/hr Q24H IV 02/03/20 09:00 02/10/20 08:59 02/03/20 09:22 Dextrose (Dextrose 50%) 25 ml Q30M PRN IV Hypoglycemia 01/30/20 19:00 02/24/20 18:59 Dextrose (Dextrose 50%) 50 ml Q30M PRN IV Hypoglycemia 01/30/20 19:00 02/24/20 18:59 Diphenhydramine HCl (Benadryl) 50 mg Q6H PRN ORAL Itching 01/30/20 19:00 02/24/20 18:59 02/04/20 04:24 Docusate Sodium (Colace) 100 mg TWICE A DAY ORAL 01/31/20 09:00 02/24/20 17:59 02/03/20 17:04 Epoetin Jose De Jesus (Epoetin Jose De Jesus(ESRD on dialysis)) 6,000 unit SUN-SUN-SUN SUBQ 01/30/20 21:00 02/25/20 20:59 02/02/20 20:26 Gabapentin (Neurontin) 300 mg THREE TIMES A DAY ORAL 01/31/20 09:00 02/24/20 17:59 02/03/20 17:05 Heparin Sodium (Porcine) (Heparin 5000 units/ml) 5,000 units EVERY 12 HOURS SUBQ 01/30/20 21:00 02/25/20 09:44 02/03/20 20:51 Hydralazine HCl (Apresoline) 25 mg Q4H PRN ORAL For High Blood Pressure 02/02/20 14:30 03/03/20 14:29 Hydralazine HCl (Apresoline) 100 mg Q8H ORAL 01/31/20 02:00 02/24/20 17:59 02/03/20 17:05 Insulin Aspart (NovoLOG) BEFORE MEALS AND HS SUBQ 01/30/20 21:00 02/24/20 16:29 02/03/20 12:09 Pantoprazole (Protonix) 40 mg DAILY ORAL 01/31/20 09:00 02/25/20 08:59 02/03/20 09:21 Polyethylene Glycol (Miralax) 17 gm DAILYPRN PRN ORAL Constipation 01/30/20 19:00 02/29/20 18:59 02/04/20 04:30 Pyridoxine HCl (Vitamin B6) 50 mg DAILY ORAL 01/31/20 09:00 02/25/20 08:59 02/03/20 09:21 Sevelamer Carbonate (Renvela) 1,600 mg THREE TIMES A DAY ORAL 01/31/20 09:00 02/28/20 17:59 02/03/20 17:04 Thiamine HCl (Vitamin B1) 100 mg DAILY ORAL 01/31/20 09:00 02/25/20 11:44 02/03/20 09:20 Vancomycin HCl (Vanco rx to dose) 1 ea DAILY PRN MISC Per rx protocol 01/30/20 19:00 02/29/20 18:59 Franko Rogel MD Feb 04, 2020 06:30
[2020-02-04 06:46] LABS: ALANINE AMINOTRANSFERASE 23 U/L (12-78); ALBUMIN 3.3 G/DL (3.4-5.0); ALBUMIN/GLOBULIN RATIO 0.8 (1.0-2.7); ALKALINE PHOSPHATASE 327 U/L (46-116); ANION GAP 17 mmol/L (5-15); ASPARTATE AMINO TRANSFERASE 17 U/L (15-37); BILIRUBIN,TOTAL 0.5 MG/DL (0.2-1.0); BLOOD UREA NITROGEN 56 mg/dL (7-18); CALCIUM 8.7 MG/DL (8.5-10.1); CARBON DIOXIDE 18 MMOL/L (21-32); CHLORIDE 95 MMOL/L (98-107); CREATININE 6.9 MG/DL (0.55-1.30); PHOSPHORUS 5.7 MG/DL (2.5-4.9); SODIUM 130 MMOL/L (136-145)
[2020-02-04 08:00] VITALS: BP 163/75
--- NOTE | 2020-02-04 08:44 | General Progress Note ---
Assessment/Plan Assessment/Plan: (1) Morbid Obesity (2) Peripheral Neuropathy (3) Lumbar DDD (4) Lumbar Spondylosis (5) Lumbar Radiculopathy Patient to be continued on [place] D/w Dr. Santiago and he concurred. Subjective Date patient seen: Feb 04, 2020 Time patient seen: 08:00 - am Allergies: Coded Allergies: NO KNOWN ALLERGIES (Unverified Allergy, Unknown, 10/15/15) Subjective Constitutional: Reports: no symptoms Eye: Reports: blurred vision ENT: Reports: no symptoms Respiratory: Reports: no symptoms Cardiovascular: Reports: no symptoms Gastrointestinal: Reports: no symptoms Genitourinary: Reports: no symptoms Musculoskeletal: Reports: back pain Skin: Reports: no symptoms Psychiatric: Reports: no symptoms Neurological: Reports: tingling, focal weakness Endocrine: Reports: no symptoms Hematologic/Lymphatic: Reports: no symptoms SUBJECTIVE: Patient sitting up showing no signs of pain or distress. Has used 2 doses of [place] in the last 24hrs No new complaints at this time. Objective Last 24 Hour Vital Signs Date Time Temp Pulse Resp B/P (MAP) Pulse Ox O2 Delivery O2 Flow Rate FiO2 02/04/20 04:00 97.4 75 18 133/63 (86) 96 02/04/20 02:00 139/59 02/04/20 00:00 98.8 81 18 139/59 (85) 97 02/03/20 21:00 Room Air 02/03/20 20:07 68 20 94 Room Air 21 02/03/20 20:00 97.7 65 18 144/67 (92) 96 02/03/20 17:35 97.5 02/03/20 17:05 138/62 02/03/20 16:00 97.5 67 16 138/62 (87) 98 02/03/20 12:00 97.1 70 18 138/65 (89) 97 02/03/20 09:00 Room Air Intake and Output 02/03/20 02/04/20 19:00 07:00 Intake Total 2110 ml Balance 2110 ml IV Total 110 ml Hemodialysis 2000 ml # Voids 2 Laboratory Tests 02/03/20 18:18: Random Vancomycin Level 19.2 02/04/20 06:05: White Blood Count 8.4, Red Blood Count 3.66L, Hemoglobin 9.0L, Hematocrit 29.0L , Mean Corpuscular Volume 79L, Mean Corpuscular Hemoglobin 24.6L, Mean Corpuscular Hemoglobin Concent 31.1L, Red Cell Distribution Width 16.7H, Platelet Count 233, Mean Platelet Volume 5.8L, Neutrophils (%) (Auto) 65.6, Lymphocytes (%) (Auto) 16.5L, Monocytes (%) (Auto) 12.7H, Eosinophils (%) (Auto ) 4.5H, Basophils (%) (Auto) 0.8, Sodium Level 130L, Potassium Level 5.0, Chloride Level 95L, Carbon Dioxide Level 18L, Anion Gap 17H, Blood Urea Nitrogen 56H, Creatinine 6.9H, Estimat Glomerular Filtration Rate 7.4, Glucose Level 106, Calcium Level 8.7, Phosphorus Level 5.7H, Magnesium Level 2.6H, Total Bilirubin 0.5, Aspartate Amino Transf (AST/SGOT) 17, Alanine Aminotransferase (ALT/SGPT) 23, Alkaline Phosphatase 327H, C-Reactive Protein, Quantitative 1.4H, Pro-B-Type Natriuretic Peptide [Pending], Total Protein 7.7, Albumin 3.3L, Globulin 4.4, Albumin/Globulin Ratio 0.8L Height (Feet): 5 Height (Inches): 9.00 Weight (Pounds): 278 Objective General Appearance: no apparent distress, alert HEENT: normocephalic, atraumatic Neck: non-tender, normal alignment Respiratory/Chest: decreased breath sounds Cardiovascular/Chest: normal rate, regular rhythm Abdomen: non tender, soft Extremities: non-tender Neurologic: alert, responsive Johnnie Isidro Feb 04, 2020 08:44
[2020-02-04] MEDS: Thiamine 100mg tab ORAL SCH (09:11)
[2020-02-04] MEDS: Pyridoxine 50mg tab ORAL SCH (09:11)
[2020-02-04] MEDS: Docusate 100mg cap ORAL SCH ×2 (09:11→17:00)
[2020-02-04] MEDS: Cefepime HCl 500 MG in D5W 55 ML IV SCH (09:12)
[2020-02-04] MEDS: Heparin 5000 units/ml inj SUBQ SCH ×2 (09:13→21:53)
--- NOTE | 2020-02-04 09:33 | Infectious Diseases Prog Note ---
Assessment/Plan Assessment/Plan ASSESSMENT: The patient is a 64-year-old female with positive blood culture CONS ,persistent 3/7 Bc: (1/2)CoNS and Citrobacter 3/4 Bc: CoNS - (outside facility, # of the +ve cultures are not clear) A 2D echo from outside facility did not show any evidence of vegetation Normal white blood cells. Afebrile. as per Carido pt is high risk for CLAY: Diabetes. CHF. ESRD. Hypertension. Obesity. PLAN: cont Cefepime # 2 continue the patient on vancomycin, day # 9 ( duration to be determined ) Monitor CBC. Monitor BMP. Monitor cultures (blood) care was DW cardio . Subjective Allergies: Coded Allergies: NO KNOWN ALLERGIES (Unverified Allergy, Unknown, 10/15/15) Subjective : +ve blood cx for Citrobacter Objective Vital Signs Last 24 Hour Vital Signs Date Time Temp Pulse Resp B/P (MAP) Pulse Ox O2 Delivery O2 Flow Rate FiO2 02/04/20 09:22 163/77 02/04/20 09:22 65 163/77 02/04/20 04:00 97.4 75 18 133/63 (86) 96 02/04/20 02:00 139/59 02/04/20 00:00 98.8 81 18 139/59 (85) 97 02/03/20 21:00 Room Air 02/03/20 20:07 68 20 94 Room Air 21 02/03/20 20:00 97.7 65 18 144/67 (92) 96 02/03/20 17:35 97.5 02/03/20 17:05 138/62 02/03/20 16:00 97.5 67 16 138/62 (87) 98 02/03/20 12:00 97.1 70 18 138/65 (89) 97 Height (Feet): 5 Height (Inches): 9.00 Weight (Pounds): 278 HEENT: mucous membranes moist Respiratory/Chest: no respiratory distress Cardiovascular: regular rhythm Abdomen: soft, non tender Microbiology Date/Time Source Procedure Growth Status 02/02/20 16:30 Blood Blood Culture - Preliminary NO GROWTH AFTER 24 HOURS Resulted 02/02/20 16:30 Blood Blood Culture - Preliminary NO GROWTH AFTER 24 HOURS Resulted Laboratory Tests Test 02/03/20 18:18 02/04/20 06:05 Random Vancomycin Level 19.2 ug/mL White Blood Count 8.4 K/UL (4.8-10.8) Red Blood Count 3.66 M/UL (4.20-5.40) L Hemoglobin 9.0 G/DL (12.0-16.0) L Hematocrit 29.0 % (37.0-47.0) L Mean Corpuscular Volume 79 FL (80-99) L Mean Corpuscular Hemoglobin 24.6 PG (27.0-31.0) L Mean Corpuscular Hemoglobin Concent 31.1 G/DL (32.0-36.0) L Red Cell Distribution Width 16.7 % (11.6-14.8) H Platelet Count 233 K/UL (150-450) Mean Platelet Volume 5.8 FL (6.5-10.1) L Neutrophils (%) (Auto) 65.6 % (45.0-75.0) Lymphocytes (%) (Auto) 16.5 % (20.0-45.0) L Monocytes (%) (Auto) 12.7 % (1.0-10.0) H Eosinophils (%) (Auto) 4.5 % (0.0-3.0) H Basophils (%) (Auto) 0.8 % (0.0-2.0) Sodium Level 130 MMOL/L (136-145) L Potassium Level 5.0 MMOL/L (3.5-5.1) Chloride Level 95 MMOL/L (98-107) L Carbon Dioxide Level 18 MMOL/L (21-32) L Anion Gap 17 mmol/L (5-15) H Blood Urea Nitrogen 56 mg/dL (7-18) H Creatinine 6.9 MG/DL (0.55-1.30) H Estimat Glomerular Filtration Rate 7.4 mL/min (>60) Glucose Level 106 MG/DL (74-106) Calcium Level 8.7 MG/DL (8.5-10.1) Phosphorus Level 5.7 MG/DL (2.5-4.9) H Magnesium Level 2.6 MG/DL (1.8-2.4) H Total Bilirubin 0.5 MG/DL (0.2-1.0) Aspartate Amino Transf (AST/SGOT) 17 U/L (15-37) Alanine Aminotransferase (ALT/SGPT) 23 U/L (12-78) Alkaline Phosphatase 327 U/L (46-116) H C-Reactive Protein, Quantitative 1.4 mg/dL (0.00-0.90) H Pro-B-Type Natriuretic Peptide Pending Total Protein 7.7 G/DL (6.4-8.2) Albumin 3.3 G/DL (3.4-5.0) L Globulin 4.4 g/dL Albumin/Globulin Ratio 0.8 (1.0-2.7) L Current Medications Medications (Trade) Dose Ordered Sig/Josi Route PRN Reason Start Time Stop Time Status Last Admin Dose Admin Acetaminophen (Tylenol) 650 mg Q4H PRN ORAL Mild Pain/Temp > 100.5 01/30/20 19:00 02/24/20 18:59 01/31/20 17:55 Acetaminophen/ Hydrocodone Bitart ([place] 10/325) 1 tab Q6H PRN ORAL Severe Pain (Pain Scale 7-10) 02/02/20 15:30 02/09/20 15:29 02/03/20 23:59 Albuterol/ Ipratropium (Albuterol/ Ipratropium) 3 ml Q4HRT PRN HHN Shortness of Breath 02/01/20 10:15 02/06/20 10:14 Amlodipine Besylate (Norvasc) 10 mg DAILY ORAL 01/31/20 09:00 02/25/20 08:59 02/04/20 09:22 Atorvastatin Calcium (Lipitor) 10 mg BEDTIME ORAL 01/30/20 21:00 02/24/20 20:59 02/03/20 20:47 Cefepime HCl 500 mg/Dextrose 55 ml @ 110 mls/hr Q24H IV 02/03/20 09:00 02/10/20 08:59 02/04/20 09:12 Dextrose (Dextrose 50%) 25 ml Q30M PRN IV Hypoglycemia 01/30/20 19:00 02/24/20 18:59 Dextrose (Dextrose 50%) 50 ml Q30M PRN IV Hypoglycemia 01/30/20 19:00 02/24/20 18:59 Diphenhydramine HCl (Benadryl) 50 mg Q6H PRN ORAL Itching 01/30/20 19:00 02/24/20 18:59 02/04/20 04:24 Docusate Sodium (Colace) 100 mg TWICE A DAY ORAL 01/31/20 09:00 02/24/20 17:59 02/04/20 09:11 Epoetin Jose De Jesus (Epoetin Jose De Jesus(ESRD on dialysis)) 6,000 unit SUN-SUN-SUN SUBQ 01/30/20 21:00 02/25/20 20:59 02/02/20 20:26 Gabapentin (Neurontin) 300 mg THREE TIMES A DAY ORAL 01/31/20 09:00 02/24/20 17:59 02/04/20 09:11 Heparin Sodium (Porcine) (Heparin 5000 units/ml) 5,000 units EVERY 12 HOURS SUBQ 01/30/20 21:00 02/25/20 09:44 02/04/20 09:13 Hydralazine HCl (Apresoline) 25 mg Q4H PRN ORAL For High Blood Pressure 02/02/20 14:30 03/03/20 14:29 Hydralazine HCl (Apresoline) 100 mg Q8H ORAL 01/31/20 02:00 02/24/20 17:59 02/04/20 09:22 Insulin Aspart (NovoLOG) BEFORE MEALS AND HS SUBQ 01/30/20 21:00 02/24/20 16:29 02/03/20 12:09 Pantoprazole (Protonix) 40 mg DAILY ORAL 01/31/20 09:00 02/25/20 08:59 02/04/20 09:11 Polyethylene Glycol (Miralax) 17 gm DAILYPRN PRN ORAL Constipation 01/30/20 19:00 02/29/20 18:59 02/04/20 04:30 Pyridoxine HCl (Vitamin B6) 50 mg DAILY ORAL 01/31/20 09:00 02/25/20 08:59 02/04/20 09:11 Sevelamer Carbonate (Renvela) 1,600 mg THREE TIMES A DAY ORAL 01/31/20 09:00 02/28/20 17:59 02/04/20 09:12 Thiamine HCl (Vitamin B1) 100 mg DAILY ORAL 01/31/20 09:00 02/25/20 11:44 02/04/20 09:11 Vancomycin HCl (Vanco rx to dose) 1 ea DAILY PRN MISC Per rx protocol 01/30/20 19:00 02/29/20 18:59 Mic Long MD Feb 04, 2020 09:33
[2020-02-04 12:00] VITALS: BP 129/69
--- NOTE | 2020-02-04 12:18 | Nephrology Progress Note ---
Assessment/Plan Problem List: (1) ESRD (end stage renal disease) on dialysis (2) Hypoglycemia (3) Diabetes (4) Anemia (5) Patient is Baptism (6) Pacemaker (7) Obese (8) HTN (hypertension) Assessment End stage renal disease on dialysis. Has a right upper arm dialysis fistula as Acces . Getting dialysis Sunday. acute encephalopathy due to hypoglycemia h/o UTI (urinary tract infection) & Pyelonephritis morbid obesity Anemia / Jehova's witness CAD previous stent HTN- hypertensive urgency upon arrival to [facility]. s/p AVG DM 2 bilateral eye blindness h/o CHF Pacemaker Plan Next dialysis February 04 Discharge planning in process EPO, thiamin and B6 Phos binders diet to renal , medium CHO per consultants Subjective ROS Limited/Unobtainable: No Constitutional: Reports: malaise Objective Objective Last 24 Hour Vital Signs Date Time Temp Pulse Resp B/P (MAP) Pulse Ox O2 Delivery O2 Flow Rate FiO2 02/04/20 09:39 58 20 96 Room Air 21 02/04/20 09:22 163/77 02/04/20 09:22 65 163/77 02/04/20 09:00 Room Air 02/04/20 08:00 97.4 70 18 163/75 (104) 96 02/04/20 04:00 97.4 75 18 133/63 (86) 96 02/04/20 02:00 139/59 02/04/20 00:00 98.8 81 18 139/59 (85) 97 02/03/20 21:00 Room Air 02/03/20 20:07 68 20 94 Room Air 21 02/03/20 20:00 97.7 65 18 144/67 (92) 96 02/03/20 17:35 97.5 02/03/20 17:05 138/62 02/03/20 16:00 97.5 67 16 138/62 (87) 98 Intake and Output 02/03/20 02/04/20 19:00 07:00 Intake Total 2110 ml Balance 2110 ml IV Total 110 ml Hemodialysis 2000 ml # Voids 2 Laboratory Tests 02/03/20 18:18: Random Vancomycin Level 19.2 02/04/20 06:05: White Blood Count 8.4, Red Blood Count 3.66L, Hemoglobin 9.0L, Hematocrit 29.0L , Mean Corpuscular Volume 79L, Mean Corpuscular Hemoglobin 24.6L, Mean Corpuscular Hemoglobin Concent 31.1L, Red Cell Distribution Width 16.7H, Platelet Count 233, Mean Platelet Volume 5.8L, Neutrophils (%) (Auto) 65.6, Lymphocytes (%) (Auto) 16.5L, Monocytes (%) (Auto) 12.7H, Eosinophils (%) (Auto ) 4.5H, Basophils (%) (Auto) 0.8, Sodium Level 130L, Potassium Level 5.0, Chloride Level 95L, Carbon Dioxide Level 18L, Anion Gap 17H, Blood Urea Nitrogen 56H, Creatinine 6.9H, Estimat Glomerular Filtration Rate 7.4, Glucose Level 106, Calcium Level 8.7, Phosphorus Level 5.7H, Magnesium Level 2.6H, Total Bilirubin 0.5, Aspartate Amino Transf (AST/SGOT) 17, Alanine Aminotransferase (ALT/SGPT) 23, Alkaline Phosphatase 327H, C-Reactive Protein, Quantitative 1.4H, Pro-B-Type Natriuretic Peptide [Pending], Total Protein 7.7, Albumin 3.3L, Globulin 4.4, Albumin/Globulin Ratio 0.8L Height (Feet): 5 Height (Inches): 9.00 Weight (Pounds): 278 General Appearance: no apparent distress Objective no change Bryan Hunter MD Feb 04, 2020 12:18
--- NOTE | 2020-02-04 13:02 | Pulmonology Progress Note ---
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 research analyst, pt is very high risk for mayco Subjective ROS Limited/Unobtainable: No Allergies: Coded Allergies: NO KNOWN ALLERGIES (Unverified Allergy, Unknown, 10/15/15) Objective Last 24 Hour Vital Signs Date Time Temp Pulse Resp B/P (MAP) Pulse Ox O2 Delivery O2 Flow Rate FiO2 02/04/20 09:39 58 20 96 Room Air 21 02/04/20 09:22 163/77 02/04/20 09:22 65 163/77 02/04/20 09:00 Room Air 02/04/20 08:00 97.4 70 18 163/75 (104) 96 02/04/20 04:00 97.4 75 18 133/63 (86) 96 02/04/20 02:00 139/59 02/04/20 00:00 98.8 81 18 139/59 (85) 97 02/03/20 21:00 Room Air 02/03/20 20:07 68 20 94 Room Air 21 02/03/20 20:00 97.7 65 18 144/67 (92) 96 02/03/20 17:35 97.5 02/03/20 17:05 138/62 02/03/20 16:00 97.5 67 16 138/62 (87) 98 Intake and Output 02/03/20 02/04/20 19:00 07:00 Intake Total 2110 ml Balance 2110 ml IV Total 110 ml Hemodialysis 2000 ml # Voids 2 Objective no new complains General Appearance: WD/WN HEENT: normocephalic, atraumatic Respiratory/Chest: chest wall non-tender, lungs clear Breasts: no masses Cardiovascular: normal peripheral pulses Abdomen: normal bowel sounds, soft, non tender Genitourinary: normal external genitalia Neurologic/Psychiatric: contract admin II-XII grossly normal Microbiology Date/Time Source Procedure Growth Status 02/02/20 16:30 Blood Blood Culture - Preliminary Resulted 02/02/20 16:30 Blood Blood Culture - Preliminary NO GROWTH AFTER 24 HOURS Resulted Laboratory Tests 02/03/20 18:18: Random Vancomycin Level 19.2 02/04/20 06:05: White Blood Count 8.4, Red Blood Count 3.66L, Hemoglobin 9.0L, Hematocrit 29.0L , Mean Corpuscular Volume 79L, Mean Corpuscular Hemoglobin 24.6L, Mean Corpuscular Hemoglobin Concent 31.1L, Red Cell Distribution Width 16.7H, Platelet Count 233, Mean Platelet Volume 5.8L, Neutrophils (%) (Auto) 65.6, Lymphocytes (%) (Auto) 16.5L, Monocytes (%) (Auto) 12.7H, Eosinophils (%) (Auto ) 4.5H, Basophils (%) (Auto) 0.8, Sodium Level 130L, Potassium Level 5.0, Chloride Level 95L, Carbon Dioxide Level 18L, Anion Gap 17H, Blood Urea Nitrogen 56H, Creatinine 6.9H, Estimat Glomerular Filtration Rate 7.4, Glucose Level 106, Calcium Level 8.7, Phosphorus Level 5.7H, Magnesium Level 2.6H, Total Bilirubin 0.5, Aspartate Amino Transf (AST/SGOT) 17, Alanine Aminotransferase (ALT/SGPT) 23, Alkaline Phosphatase 327H, C-Reactive Protein, Quantitative 1.4H, Pro-B-Type Natriuretic Peptide [Pending], Total Protein 7.7, Albumin 3.3L, Globulin 4.4, Albumin/Globulin Ratio 0.8L Current Medications Medications (Trade) Dose Ordered Sig/Josi Route PRN Reason Start Time Stop Time Status Last Admin Dose Admin Acetaminophen (Tylenol) 650 mg Q4H PRN ORAL Mild Pain/Temp > 100.5 01/30/20 19:00 02/24/20 18:59 01/31/20 17:55 Acetaminophen/ Hydrocodone Bitart ([place] 10/325) 1 tab Q6H PRN ORAL Severe Pain (Pain Scale 7-10) 02/02/20 15:30 02/09/20 15:29 02/03/20 23:59 Albuterol/ Ipratropium (Albuterol/ Ipratropium) 3 ml Q4HRT PRN HHN Shortness of Breath 3/8/20 10:15 02/06/20 10:14 Amlodipine Besylate (Norvasc) 10 mg DAILY ORAL 01/31/20 09:00 02/25/20 08:59 02/04/20 09:22 Atorvastatin Calcium (Lipitor) 10 mg BEDTIME ORAL 01/30/20 21:00 02/24/20 20:59 02/03/20 20:47 Cefepime HCl 500 mg/Dextrose 55 ml @ 110 mls/hr Q24H IV 02/03/20 09:00 02/10/20 08:59 02/04/20 09:12 Dextrose (Dextrose 50%) 25 ml Q30M PRN IV Hypoglycemia 01/30/20 19:00 02/24/20 18:59 Dextrose (Dextrose 50%) 50 ml Q30M PRN IV Hypoglycemia 01/30/20 19:00 02/24/20 18:59 Diphenhydramine HCl (Benadryl) 50 mg Q6H PRN ORAL Itching 01/30/20 19:00 02/24/20 18:59 02/04/20 04:24 Docusate Sodium (Colace) 100 mg TWICE A DAY ORAL 01/31/20 09:00 02/24/20 17:59 02/04/20 09:11 Epoetin Jose De Jesus (Epoetin Jose De Jesus(ESRD on dialysis)) 6,000 unit SUN-SUN-SUN SUBQ 01/30/20 21:00 02/25/20 20:59 02/02/20 20:26 Gabapentin (Neurontin) 300 mg THREE TIMES A DAY ORAL 01/31/20 09:00 02/24/20 17:59 02/04/20 12:14 Heparin Sodium (Porcine) (Heparin 5000 units/ml) 5,000 units EVERY 12 HOURS SUBQ 01/30/20 21:00 02/25/20 09:44 02/04/20 09:13 Hydralazine HCl (Apresoline) 25 mg Q4H PRN ORAL For High Blood Pressure 02/02/20 14:30 03/03/20 14:29 Hydralazine HCl (Apresoline) 100 mg Q8H ORAL 01/31/20 02:00 02/24/20 17:59 02/04/20 09:22 Insulin Aspart (NovoLOG) BEFORE MEALS AND HS SUBQ 01/30/20 21:00 02/24/20 16:29 02/03/20 12:09 Pantoprazole (Protonix) 40 mg DAILY ORAL 01/31/20 09:00 02/25/20 08:59 02/04/20 09:11 Polyethylene Glycol (Miralax) 17 gm DAILYPRN PRN ORAL Constipation 01/30/20 19:00 02/29/20 18:59 02/04/20 04:30 Pyridoxine HCl (Vitamin B6) 50 mg DAILY ORAL 01/31/20 09:00 02/25/20 08:59 02/04/20 09:11 Sevelamer Carbonate (Renvela) 1,600 mg THREE TIMES A DAY ORAL 01/31/20 09:00 02/28/20 17:59 02/04/20 12:15 Thiamine HCl (Vitamin B1) 100 mg DAILY ORAL 01/31/20 09:00 02/25/20 11:44 02/04/20 09:11 Vancomycin HCl (Vanco rx to dose) 1 ea DAILY PRN MISC Per rx protocol 01/30/20 19:00 02/29/20 18:59 Meghana Murillo MD Feb 04, 2020 13:02
--- NOTE | 2020-02-04 13:51 | General Progress Note ---
Assessment/Plan Problem List: (1) AMS (altered mental status) ICD Codes: R41.82 - Altered mental status, unspecified SNOMED: 156793929 (2) Diabetes ICD Codes: E11.9 - Type 2 diabetes mellitus without complications SNOMED: 27790627 (3) HTN (hypertension) ICD Codes: I10 - Essential (primary) hypertension SNOMED: 79132097 (4) Anemia ICD Codes: D64.9 - Anemia, unspecified SNOMED: 287291358 (5) Morbid obesity ICD Codes: E66.01 - Morbid (severe) obesity due to excess calories SNOMED: 359870533, 20501912003837 (6) Blindness of both eyes ICD Codes: H54.0 - Blindness SNOMED: 604774297 (7) Intractable back pain ICD Codes: M54.9 - Dorsalgia, unspecified SNOMED: 620757786 (8) ESRD (end stage renal disease) on dialysis ICD Codes: N18.6 - End stage renal disease; Z99.2 - Dependence on renal dialysis SNOMED: 455056965 Status: stable, progressing Assessment/Plan: o2p ulm tx pt diet dialysis cbc bmp am ltach eval Subjective Constitutional: Reports: weakness Allergies: Coded Allergies: NO KNOWN ALLERGIES (Unverified Allergy, Unknown, 10/15/15) All Systems: reviewed and negative except above Subjective calm in bed Objective Last 24 Hour Vital Signs Date Time Temp Pulse Resp B/P (MAP) Pulse Ox O2 Delivery O2 Flow Rate FiO2 02/04/20 12:00 96.9 87 16 129/69 (89) 96 02/04/20 09:39 58 20 96 Room Air 21 02/04/20 09:22 163/77 02/04/20 09:22 65 163/77 02/04/20 09:00 Room Air 02/04/20 08:00 97.4 70 18 163/75 (104) 96 02/04/20 04:00 97.4 75 18 133/63 (86) 96 02/04/20 02:00 139/59 02/04/20 00:00 98.8 81 18 139/59 (85) 97 02/03/20 21:00 Room Air 02/03/20 20:07 68 20 94 Room Air 21 02/03/20 20:00 97.7 65 18 144/67 (92) 96 02/03/20 17:35 97.5 02/03/20 17:05 138/62 02/03/20 16:00 97.5 67 16 138/62 (87) 98 Intake and Output 02/03/20 02/04/20 19:00 07:00 Intake Total 2110 ml Balance 2110 ml IV Total 110 ml Hemodialysis 2000 ml # Voids 2 Laboratory Tests 02/03/20 18:18: Random Vancomycin Level 19.2 02/04/20 06:05: White Blood Count 8.4, Red Blood Count 3.66L, Hemoglobin 9.0L, Hematocrit 29.0L , Mean Corpuscular Volume 79L, Mean Corpuscular Hemoglobin 24.6L, Mean Corpuscular Hemoglobin Concent 31.1L, Red Cell Distribution Width 16.7H, Platelet Count 233, Mean Platelet Volume 5.8L, Neutrophils (%) (Auto) 65.6, Lymphocytes (%) (Auto) 16.5L, Monocytes (%) (Auto) 12.7H, Eosinophils (%) (Auto ) 4.5H, Basophils (%) (Auto) 0.8, Sodium Level 130L, Potassium Level 5.0, Chloride Level 95L, Carbon Dioxide Level 18L, Anion Gap 17H, Blood Urea Nitrogen 56H, Creatinine 6.9H, Estimat Glomerular Filtration Rate 7.4, Glucose Level 106, Calcium Level 8.7, Phosphorus Level 5.7H, Magnesium Level 2.6H, Total Bilirubin 0.5, Aspartate Amino Transf (AST/SGOT) 17, Alanine Aminotransferase (ALT/SGPT) 23, Alkaline Phosphatase 327H, C-Reactive Protein, Quantitative 1.4H, Pro-B-Type Natriuretic Peptide [Pending], Total Protein 7.7, Albumin 3.3L, Globulin 4.4, Albumin/Globulin Ratio 0.8L Height (Feet): 5 Height (Inches): 9.00 Weight (Pounds): 278 General Appearance: lethargic EENT: normal ENT inspection Neck: normal alignment Cardiovascular: normal peripheral pulses, normal rate, regular rhythm Respiratory/Chest: chest wall non-tender, decreased breath sounds Abdomen: normal bowel sounds, non tender, soft Extremities: normal inspection Edema: no edema noted Arm (L), no edema noted Arm (R), no edema noted Leg (L), no edema noted Leg (R), no edema noted Pedal (L), no edema noted Pedal (R), no edema noted Generalized Neurologic: responsive, motor weakness Skin: normal pigmentation, warm/dry Roderick Henning DO Feb 04, 2020 13:51
[2020-02-04 16:00] VITALS: BP 161/85
[2020-02-04 20:00] VITALS: BP 164/64
[2020-02-04] MEDS: Epoetin Alfa-EPBX(ESRD on dialysis)3000 units/ml vial SUBQ SCH (21:47)
[2020-02-05] VITALS: BP 150/66
[2020-02-05] MEDS: HydrALAZINE 50mg tab ORAL SCH ×3 (02:07→18:01)
[2020-02-05 04:00] VITALS: BP 151/84
[2020-02-05] MEDS: NovoLOG Insulin Flexpen SUBQ SCH ×4 (05:30→20:36)
[2020-02-05 06:17] LABS: BASOPHILS % (AUTO) 0.9 % (0.0-2.0); EOSINOPHILS % (AUTO) 4.1 % (0.0-3.0); HEMATOCRIT 29.8 % (37.0-47.0); HEMOGLOBIN 9.2 G/DL (12.0-16.0); LYMPHOCYTES % (AUTO) 20.8 % (20.0-45.0); MEAN CORPUSCULAR VOLUME 78 FL (80-99); MONOCYTES % (AUTO) 12.2 % (1.0-10.0); PLATELET COUNT 252 K/UL (150-450); RED CELL DISTRIBUTION WIDTH 16.4 % (11.6-14.8); WHITE BLOOD COUNT 7.7 K/UL (4.8-10.8)
--- NOTE | 2020-02-05 06:20 | General Progress Note ---
Assessment/Plan Problem List: (1) Blindness of both eyes ICD Codes: H54.0 - Blindness SNOMED: 725230903 (2) Accelerated hypertension ICD Codes: I10 - Essential (primary) hypertension SNOMED: 35177775 (3) Uncontrolled diabetes mellitus ICD Codes: E11.9 - Type 2 diabetes mellitus without complications SNOMED: 386226338 (4) Hypoglycemia ICD Codes: E16.2 - Hypoglycemia, unspecified SNOMED: 499928135 Status: stable, progressing Assessment/Plan: continue to hold scheduled diabetic medications continue glucose monitoring hypoglycemia protocol in order low dose Novolog as needed Subjective Allergies: Coded Allergies: NO KNOWN ALLERGIES (Unverified Allergy, Unknown, 10/15/15) Subjective events noted glucose values on lower side but without hypoglycemia Item Value Date Time Bedside Blood Glucose 75 mg/dl 02/05/20 0530 Bedside Blood Glucose 86 mg/dl 02/04/20 2100 Bedside Blood Glucose 142 mg/dl H 02/04/20 1659 Bedside Blood Glucose 125 mg/dl H 02/04/20 1130 Bedside Blood Glucose 97 mg/dl 02/04/20 0630 Objective Last 24 Hour Vital Signs Date Time Temp Pulse Resp B/P (MAP) Pulse Ox O2 Delivery O2 Flow Rate FiO2 02/05/20 04:00 97.7 68 22 151/84 (106) 98 02/05/20 02:07 150/66 02/05/20 00:00 97.7 72 20 150/66 (94) 95 02/04/20 21:00 Room Air 02/04/20 20:00 97.7 71 20 164/64 (97) 95 02/04/20 20:00 64 18 95 Room Air 21 02/04/20 17:00 161/85 02/04/20 16:00 98.2 67 20 161/85 (110) 97 02/04/20 12:00 96.9 87 16 129/69 (89) 96 02/04/20 09:39 58 20 96 Room Air 21 02/04/20 09:22 163/77 02/04/20 09:22 65 163/77 02/04/20 09:00 Room Air 02/04/20 08:00 97.4 70 18 163/75 (104) 96 Intake and Output 02/04/20 02/05/20 19:00 07:00 Intake Total 840 ml Balance 840 ml Intake Oral 840 ml # Voids 2 Laboratory Tests 02/05/20 05:35: White Blood Count [Pending], Red Blood Count [Pending], Hemoglobin [Pending], Hematocrit [Pending], Mean Corpuscular Volume [Pending], Mean Corpuscular Hemoglobin [Pending], Mean Corpuscular Hemoglobin Concent [Pending], Red Cell Distribution Width [Pending], Platelet Count [Pending], Mean Platelet Volume [ Pending], Neutrophils (%) (Auto) [Pending], Lymphocytes (%) (Auto) [Pending], Monocytes (%) (Auto) [Pending], Eosinophils (%) (Auto) [Pending], Basophils (%) (Auto) [Pending], Sodium Level [Pending], Potassium Level [Pending], Chloride Level [Pending], Carbon Dioxide Level [Pending], Blood Urea Nitrogen [Pending], Creatinine [Pending], Estimat Glomerular Filtration Rate [Pending], Glucose Level [Pending], Calcium Level [Pending] Height (Feet): 5 Height (Inches): 9.00 Weight (Pounds): 278 General Appearance: no apparent distress Neck: normal alignment Cardiovascular: normal rate Respiratory/Chest: decreased breath sounds Abdomen: normal bowel sounds Edema: 1+ Arm (L), 1+ Arm (R), 1+ Leg (L), 1+ Leg (R), 1+ Pedal (L), 1+ Pedal ( R), 1+ Generalized Objective Current Medications Medications (Trade) Dose Ordered Sig/Josi Route PRN Reason Start Time Stop Time Status Last Admin Dose Admin Acetaminophen (Tylenol) 650 mg Q4H PRN ORAL Mild Pain/Temp > 100.5 01/30/20 19:00 02/24/20 18:59 01/31/20 17:55 Acetaminophen/ Hydrocodone Bitart ([place] 10/325) 1 tab Q6H PRN ORAL Severe Pain (Pain Scale 7-10) 02/02/20 15:30 02/09/20 15:29 02/03/20 23:59 Albuterol/ Ipratropium (Albuterol/ Ipratropium) 3 ml Q4HRT PRN HHN Shortness of Breath 02/01/20 10:15 02/06/20 10:14 Amlodipine Besylate (Norvasc) 10 mg DAILY ORAL 01/31/20 09:00 02/25/20 08:59 02/04/20 09:22 Atorvastatin Calcium (Lipitor) 10 mg BEDTIME ORAL 01/30/20 21:00 02/24/20 20:59 02/04/20 21:47 Cefepime HCl 500 mg/Dextrose 55 ml @ 110 mls/hr Q24H IV 02/03/20 09:00 02/10/20 08:59 02/04/20 09:12 Dextrose (Dextrose 50%) 25 ml Q30M PRN IV Hypoglycemia 01/30/20 19:00 02/24/20 18:59 Dextrose (Dextrose 50%) 50 ml Q30M PRN IV Hypoglycemia 01/30/20 19:00 02/24/20 18:59 Diphenhydramine HCl (Benadryl) 50 mg Q6H PRN ORAL Itching 01/30/20 19:00 02/24/20 18:59 02/04/20 04:24 Docusate Sodium (Colace) 100 mg TWICE A DAY ORAL 01/31/20 09:00 02/24/20 17:59 02/04/20 17:00 Epoetin Jose De Jesus (Epoetin Jose De Jesus(ESRD on dialysis)) 6,000 unit SUN-SUN-SUN SUBQ 01/30/20 21:00 02/25/20 20:59 02/04/20 21:47 Gabapentin (Neurontin) 300 mg THREE TIMES A DAY ORAL 01/31/20 09:00 02/24/20 17:59 02/04/20 17:00 Heparin Sodium (Porcine) (Heparin 5000 units/ml) 5,000 units EVERY 12 HOURS SUBQ 01/30/20 21:00 02/25/20 09:44 02/04/20 21:53 Hydralazine HCl (Apresoline) 25 mg Q4H PRN ORAL For High Blood Pressure 02/02/20 14:30 03/03/20 14:29 Hydralazine HCl (Apresoline) 100 mg Q8H ORAL 01/31/20 02:00 02/24/20 17:59 02/05/20 02:07 Insulin Aspart (NovoLOG) BEFORE MEALS AND HS SUBQ 01/30/20 21:00 02/24/20 16:29 02/04/20 16:59 Pantoprazole (Protonix) 40 mg DAILY ORAL 01/31/20 09:00 02/25/20 08:59 02/04/20 09:11 Polyethylene Glycol (Miralax) 17 gm DAILYPRN PRN ORAL Constipation 01/30/20 19:00 02/29/20 18:59 02/04/20 04:30 Pyridoxine HCl (Vitamin B6) 50 mg DAILY ORAL 01/31/20 09:00 02/25/20 08:59 02/04/20 09:11 Sevelamer Carbonate (Renvela) 1,600 mg THREE TIMES A DAY ORAL 01/31/20 09:00 02/28/20 17:59 02/04/20 17:00 Thiamine HCl (Vitamin B1) 100 mg DAILY ORAL 01/31/20 09:00 02/25/20 11:44 02/04/20 09:11 Vancomycin HCl (Vanco rx to dose) 1 ea DAILY PRN MISC Per rx protocol 01/30/20 19:00 02/29/20 18:59 Franko Rogel MD Feb 05, 2020 06:20
[2020-02-05 06:30] LABS: ANION GAP 17 mmol/L (5-15); BLOOD UREA NITROGEN 73 mg/dL (7-18); CALCIUM 9.1 MG/DL (8.5-10.1); CARBON DIOXIDE 17 MMOL/L (21-32); CHLORIDE 93 MMOL/L (98-107); POTASSIUM 5.8 MMOL/L (3.5-5.1); SODIUM 127 MMOL/L (136-145)
[2020-02-05 08:00] VITALS: BP 186/87
[2020-02-05] MEDS: Cefepime HCl 500 MG in D5W 55 ML IV SCH (09:00)
--- NOTE | 2020-02-05 09:06 | General Progress Note ---
Assessment/Plan Assessment/Plan: (1) Morbid Obesity (2) Peripheral Neuropathy (3) Lumbar DDD (4) Lumbar Spondylosis (5) Lumbar Radiculopathy Patient to be continued on [place] D/w Dr. Santiago and he concurred. Subjective Date patient seen: Feb 05, 2020 Time patient seen: 08:15 - am Allergies: Coded Allergies: NO KNOWN ALLERGIES (Unverified Allergy, Unknown, 10/15/15) Subjective Constitutional: Reports: no symptoms Eye: Reports: blurred vision ENT: Reports: no symptoms Respiratory: Reports: no symptoms Cardiovascular: Reports: no symptoms Gastrointestinal: Reports: no symptoms Genitourinary: Reports: no symptoms Musculoskeletal: Reports: back pain Skin: Reports: no symptoms Psychiatric: Reports: no symptoms Neurological: Reports: tingling, focal weakness Endocrine: Reports: no symptoms Hematologic/Lymphatic: Reports: no symptoms SUBJECTIVE: Patient showing no signs of pain or distress. Pain has been tolerated on the [place]. She has no new complaints at this time. Objective Last 24 Hour Vital Signs Date Time Temp Pulse Resp B/P (MAP) Pulse Ox O2 Delivery O2 Flow Rate FiO2 02/05/20 08:42 68 20 96 Room Air 21 02/05/20 04:00 97.7 68 22 151/84 (106) 98 02/05/20 02:07 150/66 02/05/20 00:00 97.7 72 20 150/66 (94) 95 02/04/20 21:00 Room Air 02/04/20 20:00 97.7 71 20 164/64 (97) 95 02/04/20 20:00 64 18 95 Room Air 21 02/04/20 17:00 161/85 02/04/20 16:00 98.2 67 20 161/85 (110) 97 02/04/20 12:00 96.9 87 16 129/69 (89) 96 02/04/20 09:39 58 20 96 Room Air 21 02/04/20 09:22 163/77 02/04/20 09:22 65 163/77 Intake and Output 02/04/20 02/05/20 19:00 07:00 Intake Total 840 ml 118 ml Balance 840 ml 118 ml Intake Oral 840 ml Other 118 ml # Voids 2 Laboratory Tests 02/05/20 05:35: White Blood Count 7.7, Red Blood Count 3.80L, Hemoglobin 9.2L, Hematocrit 29.8L , Mean Corpuscular Volume 78L, Mean Corpuscular Hemoglobin 24.3L, Mean Corpuscular Hemoglobin Concent 31.0L, Red Cell Distribution Width 16.4H, Platelet Count 252, Mean Platelet Volume 5.8L, Neutrophils (%) (Auto) 62.0, Lymphocytes (%) (Auto) 20.8, Monocytes (%) (Auto) 12.2H, Eosinophils (%) (Auto) 4.1H, Basophils (%) (Auto) 0.9, Sodium Level 127L, Potassium Level 5.8H, Chloride Level 93L, Carbon Dioxide Level 17L, Anion Gap 17H, Blood Urea Nitrogen 73H, Creatinine 8.0H, Estimat Glomerular Filtration Rate 6.2, Glucose Level 80, Calcium Level 9.1 Height (Feet): 5 Height (Inches): 9.00 Weight (Pounds): 278 Objective General Appearance: no apparent distress, alert HEENT: normocephalic, atraumatic Neck: non-tender, normal alignment Respiratory/Chest: decreased breath sounds Cardiovascular/Chest: normal rate, regular rhythm Abdomen: non tender, soft Extremities: non-tender Neurologic: alert, responsive Johnnie Isidro Feb 05, 2020 09:06
[2020-02-05] MEDS: Pyridoxine 50mg tab ORAL SCH (10:22)
[2020-02-05] MEDS: Thiamine 100mg tab ORAL SCH (10:22)
[2020-02-05] MEDS: Docusate 100mg cap ORAL SCH ×2 (10:22→18:01)
[2020-02-05] MEDS: Heparin 5000 units/ml inj SUBQ SCH ×2 (10:23→20:53)
[2020-02-05 12:00] VITALS: BP 160/64
--- NOTE | 2020-02-05 12:13 | Infectious Diseases Prog Note ---
Assessment/Plan Assessment/Plan ASSESSMENT: The patient is a 64-year-old female with positive blood culture CONS ,persistent 3/7 Bc: (1/2)CoNS and Citrobacter 3/4 Bc: CoNS - (outside facility, # of the +ve cultures are not clear) A 2D echo from outside facility did not show any evidence of vegetation Normal white blood cells. Afebrile. as per Carido pt is high risk for CLAY: Diabetes. CHF. ESRD. Hypertension. Obesity. PLAN: cont Cefepime # 3 continue the patient on vancomycin, day # 10 ( duration to be determined ) Monitor CBC. Monitor BMP. Monitor cultures (blood) not clear for DC , as pt has still positive . Subjective Allergies: Coded Allergies: NO KNOWN ALLERGIES (Unverified Allergy, Unknown, 10/15/15) Subjective +ve blood cx Objective Vital Signs Last 24 Hour Vital Signs Date Time Temp Pulse Resp B/P (MAP) Pulse Ox O2 Delivery O2 Flow Rate FiO2 02/05/20 09:00 Room Air 02/05/20 08:42 68 20 96 Room Air 21 02/05/20 08:00 97.3 75 21 186/87 (120) 99 02/05/20 04:00 97.7 68 22 151/84 (106) 98 02/05/20 02:07 150/66 02/05/20 00:00 97.7 72 20 150/66 (94) 95 02/04/20 21:00 Room Air 02/04/20 20:00 97.7 71 20 164/64 (97) 95 02/04/20 20:00 64 18 95 Room Air 21 02/04/20 17:00 161/85 02/04/20 16:00 98.2 67 20 161/85 (110) 97 Height (Feet): 5 Height (Inches): 9.00 Weight (Pounds): 278 HEENT: anicteric Respiratory/Chest: no respiratory distress Cardiovascular: regular rhythm Abdomen: no organomegaly Microbiology Date/Time Source Procedure Growth Status 02/03/20 08:30 Blood Blood Culture - Preliminary NO GROWTH AFTER 24 HOURS Resulted 02/03/20 08:15 Blood Blood Culture - Preliminary NO GROWTH AFTER 24 HOURS Resulted 02/02/20 16:30 Blood Blood Culture - Preliminary Staphylococcus Sp Coag Neg Resulted 02/02/20 16:30 Blood Blood Culture - Preliminary Gram Positive Cocci Resulted Laboratory Tests Test 02/05/20 05:35 White Blood Count 7.7 K/UL (4.8-10.8) Red Blood Count 3.80 M/UL (4.20-5.40) L Hemoglobin 9.2 G/DL (12.0-16.0) L Hematocrit 29.8 % (37.0-47.0) L Mean Corpuscular Volume 78 FL (80-99) L Mean Corpuscular Hemoglobin 24.3 PG (27.0-31.0) L Mean Corpuscular Hemoglobin Concent 31.0 G/DL (32.0-36.0) L Red Cell Distribution Width 16.4 % (11.6-14.8) H Platelet Count 252 K/UL (150-450) Mean Platelet Volume 5.8 FL (6.5-10.1) L Neutrophils (%) (Auto) 62.0 % (45.0-75.0) Lymphocytes (%) (Auto) 20.8 % (20.0-45.0) Monocytes (%) (Auto) 12.2 % (1.0-10.0) H Eosinophils (%) (Auto) 4.1 % (0.0-3.0) H Basophils (%) (Auto) 0.9 % (0.0-2.0) Sodium Level 127 MMOL/L (136-145) L Potassium Level 5.8 MMOL/L (3.5-5.1) H Chloride Level 93 MMOL/L (98-107) L Carbon Dioxide Level 17 MMOL/L (21-32) L Anion Gap 17 mmol/L (5-15) H Blood Urea Nitrogen 73 mg/dL (7-18) H Creatinine 8.0 MG/DL (0.55-1.30) H Estimat Glomerular Filtration Rate 6.2 mL/min (>60) Glucose Level 80 MG/DL (74-106) Calcium Level 9.1 MG/DL (8.5-10.1) Current Medications Medications (Trade) Dose Ordered Sig/Josi Route PRN Reason Start Time Stop Time Status Last Admin Dose Admin Acetaminophen (Tylenol) 650 mg Q4H PRN ORAL Mild Pain/Temp > 100.5 01/30/20 19:00 02/24/20 18:59 01/31/20 17:55 Acetaminophen/ Hydrocodone Bitart ([place] 10/325) 1 tab Q6H PRN ORAL Severe Pain (Pain Scale 7-10) 02/02/20 15:30 02/09/20 15:29 02/03/20 23:59 Albuterol/ Ipratropium (Albuterol/ Ipratropium) 3 ml Q4HRT PRN HHN Shortness of Breath 02/01/20 10:15 02/06/20 10:14 Amlodipine Besylate (Norvasc) 10 mg DAILY ORAL 01/31/20 09:00 02/25/20 08:59 02/04/20 09:22 Atorvastatin Calcium (Lipitor) 10 mg BEDTIME ORAL 01/30/20 21:00 02/24/20 20:59 02/04/20 21:47 Cefepime HCl 500 mg/Dextrose 55 ml @ 110 mls/hr Q24H IV 02/03/20 09:00 02/10/20 08:59 02/04/20 09:12 Dextrose (Dextrose 50%) 25 ml Q30M PRN IV Hypoglycemia 01/30/20 19:00 02/24/20 18:59 Dextrose (Dextrose 50%) 50 ml Q30M PRN IV Hypoglycemia 01/30/20 19:00 02/24/20 18:59 Diphenhydramine HCl (Benadryl) 50 mg Q6H PRN ORAL Itching 01/30/20 19:00 02/24/20 18:59 02/04/20 04:24 Docusate Sodium (Colace) 100 mg TWICE A DAY ORAL 01/31/20 09:00 02/24/20 17:59 02/05/20 10:22 Epoetin Jose De Jesus (Epoetin Jose De Jesus(ESRD on dialysis)) 6,000 unit SUN-SUN-SUN SUBQ 01/30/20 21:00 02/25/20 20:59 02/04/20 21:47 Gabapentin (Neurontin) 300 mg THREE TIMES A DAY ORAL 01/31/20 09:00 02/24/20 17:59 02/05/20 10:22 Heparin Sodium (Porcine) (Heparin 5000 units/ml) 5,000 units EVERY 12 HOURS SUBQ 01/30/20 21:00 02/25/20 09:44 02/05/20 10:23 Hydralazine HCl (Apresoline) 25 mg Q4H PRN ORAL For High Blood Pressure 02/02/20 14:30 03/03/20 14:29 Hydralazine HCl (Apresoline) 100 mg Q8H ORAL 01/31/20 02:00 02/24/20 17:59 02/05/20 02:07 Insulin Aspart (NovoLOG) BEFORE MEALS AND HS SUBQ 01/30/20 21:00 02/24/20 16:29 02/04/20 16:59 Pantoprazole (Protonix) 40 mg DAILY ORAL 01/31/20 09:00 02/25/20 08:59 02/05/20 10:22 Polyethylene Glycol (Miralax) 17 gm DAILYPRN PRN ORAL Constipation 01/30/20 19:00 02/29/20 18:59 02/04/20 04:30 Pyridoxine HCl (Vitamin B6) 50 mg DAILY ORAL 01/31/20 09:00 02/25/20 08:59 02/05/20 10:22 Sevelamer Carbonate (Renvela) 1,600 mg THREE TIMES A DAY ORAL 01/31/20 09:00 02/28/20 17:59 02/05/20 10:22 Thiamine HCl (Vitamin B1) 100 mg DAILY ORAL 01/31/20 09:00 02/25/20 11:44 02/05/20 10:22 Vancomycin HCl (Vanco rx to dose) 1 ea DAILY PRN MISC Per rx protocol 01/30/20 19:00 02/29/20 18:59 Mic Long MD Feb 05, 2020 12:13
[2020-02-05] MEDS: HYDROcodone/Acetamin 10/325 tab ORAL PRN ×2 (12:44→22:30)
[2020-02-05] MEDS: HydrALAZINE 25mg tab ORAL PRN ×2 (12:46→22:30)
--- NOTE | 2020-02-05 13:00 | Pulmonology Progress Note ---
Assessment/Plan Problems: (1) Bacteremia Assessment & Plan: persistent (2) Accelerated hypertension (3) Uncontrolled diabetes mellitus (4) Hypoglycemia (5) Intractable back pain (6) ESRD (end stage renal disease) on dialysis (7) Lumbar radiculopathy (8) Coronary artery disease (9) Morbid obesity (10) Blindness of both eyes Assessment/Plan getting HD, c/o of generalized pain f/u blood culture results, repeat cultures are positive BP better no new complains doing better Bs better mental status improved BP becoming more stable HD by nephrology sliding scale diabetic diet D/W ceramic plater, pt is very high risk for mayco Subjective ROS Limited/Unobtainable: No Constitutional: Reports: no symptoms HEENT: Repors: no symptoms Allergies: Coded Allergies: NO KNOWN ALLERGIES (Unverified Allergy, Unknown, 10/15/15) Objective Last 24 Hour Vital Signs Date Time Temp Pulse Resp B/P (MAP) Pulse Ox O2 Delivery O2 Flow Rate FiO2 02/05/20 12:46 160/64 02/05/20 09:00 Room Air 02/05/20 08:42 68 20 96 Room Air 21 02/05/20 08:00 97.3 75 21 186/87 (120) 99 02/05/20 04:00 97.7 68 22 151/84 (106) 98 02/05/20 02:07 150/66 02/05/20 00:00 97.7 72 20 150/66 (94) 95 02/04/20 21:00 Room Air 02/04/20 20:00 97.7 71 20 164/64 (97) 95 02/04/20 20:00 64 18 95 Room Air 21 02/04/20 17:00 161/85 02/04/20 16:00 98.2 67 20 161/85 (110) 97 Intake and Output 02/04/20 02/05/20 19:00 07:00 Intake Total 840 ml 118 ml Balance 840 ml 118 ml Intake Oral 840 ml Other 118 ml # Voids 2 Objective no new complains General Appearance: WD/WN HEENT: normocephalic, atraumatic Respiratory/Chest: chest wall non-tender, lungs clear Breasts: no masses Cardiovascular: normal peripheral pulses, normal rate Abdomen: normal bowel sounds, non distended Genitourinary: normal external genitalia Skin: no rash Microbiology Date/Time Source Procedure Growth Status 02/03/20 08:30 Blood Blood Culture - Preliminary NO GROWTH AFTER 24 HOURS Resulted 02/03/20 08:15 Blood Blood Culture - Preliminary NO GROWTH AFTER 24 HOURS Resulted 02/02/20 16:30 Blood Blood Culture - Preliminary Staphylococcus Sp Coag Neg Resulted 02/02/20 16:30 Blood Blood Culture - Preliminary Gram Positive Cocci Resulted Laboratory Tests 02/05/20 05:35: White Blood Count 7.7, Red Blood Count 3.80L, Hemoglobin 9.2L, Hematocrit 29.8L , Mean Corpuscular Volume 78L, Mean Corpuscular Hemoglobin 24.3L, Mean Corpuscular Hemoglobin Concent 31.0L, Red Cell Distribution Width 16.4H, Platelet Count 252, Mean Platelet Volume 5.8L, Neutrophils (%) (Auto) 62.0, Lymphocytes (%) (Auto) 20.8, Monocytes (%) (Auto) 12.2H, Eosinophils (%) (Auto) 4.1H, Basophils (%) (Auto) 0.9, Sodium Level 127L, Potassium Level 5.8H, Chloride Level 93L, Carbon Dioxide Level 17L, Anion Gap 17H, Blood Urea Nitrogen 73H, Creatinine 8.0H, Estimat Glomerular Filtration Rate 6.2, Glucose Level 80, Calcium Level 9.1 Current Medications Medications (Trade) Dose Ordered Sig/Josi Route PRN Reason Start Time Stop Time Status Last Admin Dose Admin Acetaminophen (Tylenol) 650 mg Q4H PRN ORAL Mild Pain/Temp > 100.5 01/30/20 19:00 02/24/20 18:59 01/31/20 17:55 Acetaminophen/ Hydrocodone Bitart ([place] 10/325) 1 tab Q6H PRN ORAL Severe Pain (Pain Scale 7-10) 02/02/20 15:30 02/09/20 15:29 02/05/20 12:44 Albuterol/ Ipratropium (Albuterol/ Ipratropium) 3 ml Q4HRT PRN HHN Shortness of Breath 02/01/20 10:15 02/06/20 10:14 Amlodipine Besylate (Norvasc) 10 mg DAILY ORAL 01/31/20 09:00 02/25/20 08:59 02/04/20 09:22 Atorvastatin Calcium (Lipitor) 10 mg BEDTIME ORAL 3/6/20 21:00 02/24/20 20:59 02/04/20 21:47 Cefepime HCl 500 mg/Dextrose 55 ml @ 110 mls/hr Q24H IV 02/03/20 09:00 02/10/20 08:59 02/04/20 09:12 Dextrose (Dextrose 50%) 25 ml Q30M PRN IV Hypoglycemia 01/30/20 19:00 02/24/20 18:59 Dextrose (Dextrose 50%) 50 ml Q30M PRN IV Hypoglycemia 01/30/20 19:00 02/24/20 18:59 Diphenhydramine HCl (Benadryl) 50 mg Q6H PRN ORAL Itching 01/30/20 19:00 02/24/20 18:59 02/04/20 04:24 Docusate Sodium (Colace) 100 mg TWICE A DAY ORAL 01/31/20 09:00 02/24/20 17:59 02/05/20 10:22 Epoetin Jose De Jesus (Epoetin Jose De Jesus(ESRD on dialysis)) 6,000 unit SUN-SUN-SUN SUBQ 01/30/20 21:00 02/25/20 20:59 02/04/20 21:47 Gabapentin (Neurontin) 300 mg THREE TIMES A DAY ORAL 01/31/20 09:00 02/24/20 17:59 02/05/20 12:43 Heparin Sodium (Porcine) (Heparin 5000 units/ml) 5,000 units EVERY 12 HOURS SUBQ 01/30/20 21:00 02/25/20 09:44 02/05/20 10:23 Hydralazine HCl (Apresoline) 25 mg Q4H PRN ORAL For High Blood Pressure 02/02/20 14:30 03/03/20 14:29 02/05/20 12:46 Hydralazine HCl (Apresoline) 100 mg Q8H ORAL 01/31/20 02:00 02/24/20 17:59 02/05/20 02:07 Insulin Aspart (NovoLOG) BEFORE MEALS AND HS SUBQ 01/30/20 21:00 02/24/20 16:29 02/04/20 16:59 Pantoprazole (Protonix) 40 mg DAILY ORAL 01/31/20 09:00 02/25/20 08:59 02/05/20 10:22 Polyethylene Glycol (Miralax) 17 gm DAILYPRN PRN ORAL Constipation 01/30/20 19:00 02/29/20 18:59 02/04/20 04:30 Pyridoxine HCl (Vitamin B6) 50 mg DAILY ORAL 01/31/20 09:00 02/25/20 08:59 02/05/20 10:22 Sevelamer Carbonate (Renvela) 1,600 mg THREE TIMES A DAY ORAL 01/31/20 09:00 02/28/20 17:59 02/05/20 12:43 Thiamine HCl (Vitamin B1) 100 mg DAILY ORAL 01/31/20 09:00 02/25/20 11:44 02/05/20 10:22 Vancomycin HCl (Vanco rx to dose) 1 ea DAILY PRN MISC Per rx protocol 01/30/20 19:00 02/29/20 18:59 Meghana Murillo MD Feb 05, 2020 12:59
--- NOTE | 2020-02-05 13:22 | General Progress Note ---
Assessment/Plan Problem List: (1) AMS (altered mental status) ICD Codes: R41.82 - Altered mental status, unspecified SNOMED: 337969514 (2) Diabetes ICD Codes: E11.9 - Type 2 diabetes mellitus without complications SNOMED: 85219967 (3) HTN (hypertension) ICD Codes: I10 - Essential (primary) hypertension SNOMED: 39289610 (4) Anemia ICD Codes: D64.9 - Anemia, unspecified SNOMED: 883099267 (5) Morbid obesity ICD Codes: E66.01 - Morbid (severe) obesity due to excess calories SNOMED: 479872607, 23867582296475 (6) Blindness of both eyes ICD Codes: H54.0 - Blindness SNOMED: 138828143 (7) Intractable back pain ICD Codes: M54.9 - Dorsalgia, unspecified SNOMED: 638735523 (8) ESRD (end stage renal disease) on dialysis ICD Codes: N18.6 - End stage renal disease; Z99.2 - Dependence on renal dialysis SNOMED: 399094259 Status: stable, progressing Assessment/Plan: o2p ulm tx pt diet dialysis cbc bmp am ltach eval Subjective Constitutional: Reports: weakness Allergies: Coded Allergies: NO KNOWN ALLERGIES (Unverified Allergy, Unknown, 10/15/15) All Systems: reviewed and negative except above Subjective calm in bed dialysis Objective Last 24 Hour Vital Signs Date Time Temp Pulse Resp B/P (MAP) Pulse Ox O2 Delivery O2 Flow Rate FiO2 02/05/20 12:46 160/64 02/05/20 12:00 97.5 53 20 160/64 (96) 97 02/05/20 09:00 Room Air 02/05/20 08:42 68 20 96 Room Air 21 02/05/20 08:00 97.3 75 21 186/87 (120) 99 02/05/20 04:00 97.7 68 22 151/84 (106) 98 02/05/20 02:07 150/66 02/05/20 00:00 97.7 72 20 150/66 (94) 95 02/04/20 21:00 Room Air 02/04/20 20:00 97.7 71 20 164/64 (97) 95 02/04/20 20:00 64 18 95 Room Air 21 02/04/20 17:00 161/85 02/04/20 16:00 98.2 67 20 161/85 (110) 97 Intake and Output 02/04/20 02/05/20 19:00 07:00 Intake Total 840 ml 118 ml Balance 840 ml 118 ml Intake Oral 840 ml Other 118 ml # Voids 2 Laboratory Tests 02/05/20 05:35: White Blood Count 7.7, Red Blood Count 3.80L, Hemoglobin 9.2L, Hematocrit 29.8L , Mean Corpuscular Volume 78L, Mean Corpuscular Hemoglobin 24.3L, Mean Corpuscular Hemoglobin Concent 31.0L, Red Cell Distribution Width 16.4H, Platelet Count 252, Mean Platelet Volume 5.8L, Neutrophils (%) (Auto) 62.0, Lymphocytes (%) (Auto) 20.8, Monocytes (%) (Auto) 12.2H, Eosinophils (%) (Auto) 4.1H, Basophils (%) (Auto) 0.9, Sodium Level 127L, Potassium Level 5.8H, Chloride Level 93L, Carbon Dioxide Level 17L, Anion Gap 17H, Blood Urea Nitrogen 73H, Creatinine 8.0H, Estimat Glomerular Filtration Rate 6.2, Glucose Level 80, Calcium Level 9.1 Height (Feet): 5 Height (Inches): 9.00 Weight (Pounds): 278 General Appearance: lethargic EENT: normal ENT inspection Neck: normal alignment Cardiovascular: normal peripheral pulses, normal rate, regular rhythm Respiratory/Chest: chest wall non-tender, lungs clear, normal breath sounds Abdomen: normal bowel sounds, non tender, soft Extremities: normal inspection Edema: 1+ Arm (L), 1+ Arm (R), 1+ Leg (L), 1+ Leg (R), 1+ Pedal (L), 1+ Pedal ( R), 1+ Generalized Edema: trace edema Neurologic: motor weakness Skin: normal pigmentation, warm/dry Roderick Henning DO Feb 05, 2020 13:22
--- NOTE | 2020-02-05 15:03 | Nephrology Progress Note ---
Assessment/Plan Problem List: (1) ESRD (end stage renal disease) on dialysis (2) Hypoglycemia (3) Diabetes (4) Anemia (5) Patient is Jewish (6) Pacemaker (7) Obese (8) HTN (hypertension) Assessment End stage renal disease on dialysis. Has a right upper arm dialysis fistula as Acces . Getting dialysis Sunday. acute encephalopathy due to hypoglycemia h/o UTI (urinary tract infection) & Pyelonephritis morbid obesity Anemia / Jehova's witness CAD previous stent HTN- hypertensive urgency upon arrival to [facility]. s/p AVG DM 2 bilateral eye blindness h/o CHF Pacemaker Plan Next dialysis February 04 Check electrolytes and renal parameters tomorrow Discharge planning in process EPO, thiamin and B6 Phos binders diet to renal , medium CHO per consultants Subjective ROS Limited/Unobtainable: No Constitutional: Reports: malaise Objective Objective Last 24 Hour Vital Signs Date Time Temp Pulse Resp B/P (MAP) Pulse Ox O2 Delivery O2 Flow Rate FiO2 02/05/20 12:46 160/64 02/05/20 12:00 97.5 53 20 160/64 (96) 97 02/05/20 09:00 Room Air 02/05/20 08:42 68 20 96 Room Air 21 02/05/20 08:00 97.3 75 21 186/87 (120) 99 02/05/20 04:00 97.7 68 22 151/84 (106) 98 02/05/20 02:07 150/66 02/05/20 00:00 97.7 72 20 150/66 (94) 95 02/04/20 21:00 Room Air 02/04/20 20:00 97.7 71 20 164/64 (97) 95 02/04/20 20:00 64 18 95 Room Air 21 02/04/20 17:00 161/85 02/04/20 16:00 98.2 67 20 161/85 (110) 97 Intake and Output 02/04/20 02/05/20 19:00 07:00 Intake Total 840 ml 118 ml Balance 840 ml 118 ml Intake Oral 840 ml Other 118 ml # Voids 2 Laboratory Tests 02/05/20 05:35: White Blood Count 7.7, Red Blood Count 3.80L, Hemoglobin 9.2L, Hematocrit 29.8L , Mean Corpuscular Volume 78L, Mean Corpuscular Hemoglobin 24.3L, Mean Corpuscular Hemoglobin Concent 31.0L, Red Cell Distribution Width 16.4H, Platelet Count 252, Mean Platelet Volume 5.8L, Neutrophils (%) (Auto) 62.0, Lymphocytes (%) (Auto) 20.8, Monocytes (%) (Auto) 12.2H, Eosinophils (%) (Auto) 4.1H, Basophils (%) (Auto) 0.9, Sodium Level 127L, Potassium Level 5.8H, Chloride Level 93L, Carbon Dioxide Level 17L, Anion Gap 17H, Blood Urea Nitrogen 73H, Creatinine 8.0H, Estimat Glomerular Filtration Rate 6.2, Glucose Level 80, Calcium Level 9.1 Height (Feet): 5 Height (Inches): 9.00 Weight (Pounds): 278 General Appearance: no apparent distress Objective no change Bryan Hunter MD Feb 05, 2020 15:03
[2020-02-05 16:00] VITALS: BP 146/76
[2020-02-05] MEDS ORDERED: Vancomycin 750mg/NS 275ml IVPB SCH ×2 (18:00)
--- NOTE | 2020-02-05 19:33 | Cardiology Progress Note ---
Assessment/Plan Assessment/Plan 1. Altered mentation, seemed to improve. 2. History of coronary artery disease, status post coronary artery stenting x2 in 2010. 3. Diabetes mellitus. 4. End-stage renal disease, on hemodialysis. 5. Morbid obesity. 6. Bacteremia. 7. Bleeding from dialysis site. 8. Possible urinary tract infection. 9. pulm htn venous dupelx neg on iv abx bp seems ok case d/w pulm who felt pt high risk for moderate sedation and recommneded intubation for johanny procedure in rediscussing with ID regarding the risk for intubation felt at this time the lizzy of longer term empiric treatment may be less than the risk of the procedure so will not perform mayco at this time. Subjective Cardiovascular: Denies: chest pain, lightheadedness Respiratory: Denies: shortness of breath Gastrointestinal/Abdominal: Denies: abdominal pain Objective Last 24 Hour Vital Signs Date Time Temp Pulse Resp B/P (MAP) Pulse Ox O2 Delivery O2 Flow Rate FiO2 02/05/20 18:01 146/76 02/05/20 16:00 97.7 69 21 146/76 (99) 100 02/05/20 12:46 160/64 02/05/20 12:00 97.5 53 20 160/64 (96) 97 02/05/20 09:00 Room Air 02/05/20 08:42 68 20 96 Room Air 21 02/05/20 08:00 97.3 75 21 186/87 (120) 99 02/05/20 04:00 97.7 68 22 151/84 (106) 98 02/05/20 02:07 150/66 02/05/20 00:00 97.7 72 20 150/66 (94) 95 02/04/20 21:00 Room Air 02/04/20 20:00 97.7 71 20 164/64 (97) 95 02/04/20 20:00 64 18 95 Room Air 21 General Appearance: no apparent distress, alert, obese, patient on isolation Neck: supple Cardiovascular: normal rate Respiratory/Chest: lungs clear Abdomen: normal bowel sounds Extremities: trace edema Intake and Output 02/04/20 02/05/20 19:00 07:00 Intake Total 840 ml 118 ml Balance 840 ml 118 ml Intake Oral 840 ml Other 118 ml # Voids 2 Laboratory Tests Test 02/05/20 05:35 White Blood Count 7.7 K/UL (4.8-10.8) Red Blood Count 3.80 M/UL (4.20-5.40) L Hemoglobin 9.2 G/DL (12.0-16.0) L Hematocrit 29.8 % (37.0-47.0) L Mean Corpuscular Volume 78 FL (80-99) L Mean Corpuscular Hemoglobin 24.3 PG (27.0-31.0) L Mean Corpuscular Hemoglobin Concent 31.0 G/DL (32.0-36.0) L Red Cell Distribution Width 16.4 % (11.6-14.8) H Platelet Count 252 K/UL (150-450) Mean Platelet Volume 5.8 FL (6.5-10.1) L Neutrophils (%) (Auto) 62.0 % (45.0-75.0) Lymphocytes (%) (Auto) 20.8 % (20.0-45.0) Monocytes (%) (Auto) 12.2 % (1.0-10.0) H Eosinophils (%) (Auto) 4.1 % (0.0-3.0) H Basophils (%) (Auto) 0.9 % (0.0-2.0) Sodium Level 127 MMOL/L (136-145) L Potassium Level 5.8 MMOL/L (3.5-5.1) H Chloride Level 93 MMOL/L (98-107) L Carbon Dioxide Level 17 MMOL/L (21-32) L Anion Gap 17 mmol/L (5-15) H Blood Urea Nitrogen 73 mg/dL (7-18) H Creatinine 8.0 MG/DL (0.55-1.30) H Estimat Glomerular Filtration Rate 6.2 mL/min (>60) Glucose Level 80 MG/DL (74-106) Calcium Level 9.1 MG/DL (8.5-10.1) Microbiology Date/Time Source Procedure Growth Status 02/03/20 08:30 Blood Blood Culture - Preliminary NO GROWTH AFTER 24 HOURS Resulted 02/03/20 08:15 Blood Blood Culture - Preliminary NO GROWTH AFTER 24 HOURS Resulted Wilfredo Reyna MD Feb 05, 2020 19:33
[2020-02-05 20:00] VITALS: BP 160/87
[2020-02-06] VITALS: BP 166/81
[2020-02-06] MEDS: HydrALAZINE 50mg tab ORAL SCH ×2 (01:29→09:47)
--- NOTE | 2020-02-06 03:00 | Progress Note ---
DATE: 02/04/2020 NOTE: INCOMPLETE DICTATION SUBJECTIVE: The patient denies any chest pain or shortness of breath or dizziness or lightheadedness. OBJECTIVE: VITAL SIGNS: Blood pressure 164/64 with heart rate 71 and temperature 97.7. LUNGS: Clear anteriorly. CARDIAC: Regular rate and rhythm. ABDOMEN: Soft and nontender. Positive bowel sounds. Obese. EXTREMITIES: There is no edema. NEUROLOGIC: She was drowsy as usual. Sleeping and I was able to wake her up. Wilfredo Reyna M.D. DR: PREET JOB#: [id number] CC:
[2020-02-06 04:00] VITALS: BP 166/77
--- NOTE | 2020-02-06 04:00 | Progress Note ---
DATE: 02/04/2020 SUBJECTIVE: The patient denies any chest pain or shortness of breath. No PND. No orthopnea. No palpitations. She feels comfortable although she is apprehensive. OBJECTIVE: VITAL SIGNS: Her blood pressure 164/64 with the heart rate 71 and temperature 97.7. LUNGS: Clear to auscultation anteriorly. CARDIAC: Regular rate and rhythm. No heaves or thrills. ABDOMEN: Soft, nontender, and obese. Positive bowel sounds. EXTREMITIES: Really no significant edema. LABORATORY AND DIAGNOSTIC DATA: White count of 8.4, hemoglobin 9, and a platelet count of 233,000. Sodium is 130, potassium 5.0, chloride 95, bicarb of 18, BUN of 56, creatinine 6.2, and glucose of 106. Magnesium of 2.6. Alkaline phosphatase at 321. ASSESSMENT: 1. History of coronary artery disease, status post coronary stenting x2 in 2009. 2. Diabetes mellitus. 3. End-stage renal disease, on hemodialysis. 4. Morbid obesity. 5. Bacteremia. 6. Pulmonary hypertension. PLAN: This patient has been evaluated previously and was being considered for transesophageal echocardiogram. However, because of the risk associated with sedation was high and it is felt that the risk of longer-term empiric antibiotic treatment would likely be better than risk of CLAY. Therefore, she is on antibiotics at this time. She is doing relatively well. Her venous duplex was negative. Her troponins have been negative. We will follow the patient along. Wilfredo Reyna M.D. DR: PREET JOB#: [id number] CC:
[2020-02-06] MEDS: Miralax 17gm pkt ORAL PRN (04:47)
--- NOTE | 2020-02-06 06:18 | General Progress Note ---
Assessment/Plan Problem List: (1) Blindness of both eyes ICD Codes: H54.0 - Blindness SNOMED: 928585689 (2) Accelerated hypertension ICD Codes: I10 - Essential (primary) hypertension SNOMED: 92180877 (3) Uncontrolled diabetes mellitus ICD Codes: E11.9 - Type 2 diabetes mellitus without complications SNOMED: 985082683 (4) Hypoglycemia ICD Codes: E16.2 - Hypoglycemia, unspecified SNOMED: 004896832 Status: stable, progressing Assessment/Plan: continue to hold scheduled diabetic medications continue glucose monitoring hypoglycemia protocol in order low dose Novolog as needed Subjective Allergies: Coded Allergies: NO KNOWN ALLERGIES (Unverified Allergy, Unknown, 10/15/15) Subjective events noted glucose values are stable Item Value Date Time Bedside Blood Glucose 160 mg/dl H 02/05/20 2037 Bedside Blood Glucose 121 mg/dl H 02/05/20 1630 Bedside Blood Glucose 86 mg/dl 02/05/20 1130 Bedside Blood Glucose 75 mg/dl 02/05/20 0530 Objective Last 24 Hour Vital Signs Date Time Temp Pulse Resp B/P (MAP) Pulse Ox O2 Delivery O2 Flow Rate FiO2 02/06/20 04:00 97.7 65 20 166/77 (106) 95 02/06/20 01:29 166/81 02/06/20 00:00 97.9 75 24 166/81 (109) 96 02/05/20 22:30 160/87 02/05/20 21:00 Room Air 02/05/20 20:24 75 18 98 Room Air 21 02/05/20 20:00 97.7 56 22 160/87 (111) 96 02/05/20 18:01 146/76 02/05/20 16:00 97.7 69 21 146/76 (99) 100 02/05/20 12:46 160/64 02/05/20 12:00 97.5 53 20 160/64 (96) 97 02/05/20 09:00 Room Air 02/05/20 08:42 68 20 96 Room Air 21 02/05/20 08:00 97.3 75 21 186/87 (120) 99 Intake and Output 02/05/20 02/06/20 19:00 07:00 Intake Total 2450 ml Output Total 2000 ml Balance 450 ml Intake Oral 450 ml Hemodialysis 2000 ml Hemodialysis UF 2000 ml Height (Feet): 5 Height (Inches): 9.00 Weight (Pounds): 278 General Appearance: no apparent distress Neck: normal alignment Cardiovascular: normal rate Respiratory/Chest: decreased breath sounds Abdomen: normal bowel sounds Objective Current Medications Medications (Trade) Dose Ordered Sig/Josi Route PRN Reason Start Time Stop Time Status Last Admin Dose Admin Acetaminophen (Tylenol) 650 mg Q4H PRN ORAL Mild Pain/Temp > 100.5 01/30/20 19:00 02/24/20 18:59 01/31/20 17:55 Acetaminophen/ Hydrocodone Bitart ([place] 10/325) 1 tab Q6H PRN ORAL Severe Pain (Pain Scale 7-10) 02/02/20 15:30 02/09/20 15:29 02/05/20 22:30 Albuterol/ Ipratropium (Albuterol/ Ipratropium) 3 ml Q4HRT PRN HHN Shortness of Breath 02/01/20 10:15 02/06/20 10:14 Amlodipine Besylate (Norvasc) 10 mg DAILY ORAL 01/31/20 09:00 02/25/20 08:59 02/04/20 09:22 Atorvastatin Calcium (Lipitor) 10 mg BEDTIME ORAL 01/30/20 21:00 02/24/20 20:59 02/05/20 20:53 Cefepime HCl 500 mg/Dextrose 55 ml @ 110 mls/hr Q24H IV 02/03/20 09:00 02/10/20 08:59 02/04/20 09:12 Dextrose (Dextrose 50%) 25 ml Q30M PRN IV Hypoglycemia 01/30/20 19:00 02/24/20 18:59 Dextrose (Dextrose 50%) 50 ml Q30M PRN IV Hypoglycemia 01/30/20 19:00 02/24/20 18:59 Diphenhydramine HCl (Benadryl) 50 mg Q6H PRN ORAL Itching 01/30/20 19:00 02/24/20 18:59 02/06/20 04:32 Docusate Sodium (Colace) 100 mg TWICE A DAY ORAL 01/31/20 09:00 02/24/20 17:59 02/05/20 18:01 Epoetin Jose De Jesus (Epoetin Jose De Jesus(ESRD on dialysis)) 6,000 unit SUN-SUN-SUN SUBQ 01/30/20 21:00 02/25/20 20:59 02/04/20 21:47 Gabapentin (Neurontin) 300 mg THREE TIMES A DAY ORAL 01/31/20 09:00 02/24/20 17:59 02/05/20 18:01 Heparin Sodium (Porcine) (Heparin 5000 units/ml) 5,000 units EVERY 12 HOURS SUBQ 01/30/20 21:00 02/25/20 09:44 02/05/20 20:53 Hydralazine HCl (Apresoline) 25 mg Q4H PRN ORAL For High Blood Pressure 02/02/20 14:30 03/03/20 14:29 02/05/20 22:30 Hydralazine HCl (Apresoline) 100 mg Q8H ORAL 01/31/20 02:00 02/24/20 17:59 02/06/20 01:29 Insulin Aspart (NovoLOG) BEFORE MEALS AND HS SUBQ 01/30/20 21:00 02/24/20 16:29 02/04/20 16:59 Pantoprazole (Protonix) 40 mg DAILY ORAL 01/31/20 09:00 02/25/20 08:59 02/05/20 10:22 Polyethylene Glycol (Miralax) 17 gm DAILYPRN PRN ORAL Constipation 01/30/20 19:00 02/29/20 18:59 02/06/20 04:47 Pyridoxine HCl (Vitamin B6) 50 mg DAILY ORAL 01/31/20 09:00 02/25/20 08:59 02/05/20 10:22 Sevelamer Carbonate (Renvela) 1,600 mg THREE TIMES A DAY ORAL 01/31/20 09:00 02/28/20 17:59 02/05/20 18:01 Thiamine HCl (Vitamin B1) 100 mg DAILY ORAL 01/31/20 09:00 02/25/20 11:44 02/05/20 10:22 Vancomycin HCl (Vanco rx to dose) 1 ea DAILY PRN MISC Per rx protocol 01/30/20 19:00 02/29/20 18:59 Franko Rogel MD Feb 06, 2020 06:18
[2020-02-06] MEDS: NovoLOG Insulin Flexpen SUBQ SCH ×2 (06:30→12:49)
[2020-02-06 06:50] LABS: BASOPHILS % (AUTO) 1.3 % (0.0-2.0); EOSINOPHILS % (AUTO) 5.3 % (0.0-3.0); HEMATOCRIT 29.2 % (37.0-47.0); LYMPHOCYTES % (AUTO) 17.7 % (20.0-45.0); MEAN CORPUSCULAR VOLUME 79 FL (80-99); MONOCYTES % (AUTO) 15.6 % (1.0-10.0); PLATELET COUNT 232 K/UL (150-450); WHITE BLOOD COUNT 6.3 K/UL (4.8-10.8)
[2020-02-06 07:09] LABS: ALANINE AMINOTRANSFERASE 25 U/L (12-78); ALBUMIN 3.6 G/DL (3.4-5.0); ALBUMIN/GLOBULIN RATIO 0.9 (1.0-2.7); ALKALINE PHOSPHATASE 361 U/L (46-116); ANION GAP 11 mmol/L (5-15); ASPARTATE AMINO TRANSFERASE 18 U/L (15-37); BILIRUBIN,TOTAL 0.6 MG/DL (0.2-1.0); BLOOD UREA NITROGEN 59 mg/dL (7-18); CALCIUM 8.9 MG/DL (8.5-10.1); CARBON DIOXIDE 26 MMOL/L (21-32); CHLORIDE 98 MMOL/L (98-107); CREATININE 6.8 MG/DL (0.55-1.30); PHOSPHORUS 5.4 MG/DL (2.5-4.9); POTASSIUM 4.7 MMOL/L (3.5-5.1); SODIUM 135 MMOL/L (136-145)
[2020-02-06 08:00] VITALS: BP 188/82
--- NOTE | 2020-02-06 08:41 | General Progress Note ---
Assessment/Plan Problem List: (1) AMS (altered mental status) ICD Codes: R41.82 - Altered mental status, unspecified SNOMED: 552224909 (2) Diabetes ICD Codes: E11.9 - Type 2 diabetes mellitus without complications SNOMED: 25474221 (3) HTN (hypertension) ICD Codes: I10 - Essential (primary) hypertension SNOMED: 57364048 (4) Anemia ICD Codes: D64.9 - Anemia, unspecified SNOMED: 998100585 (5) Morbid obesity ICD Codes: E66.01 - Morbid (severe) obesity due to excess calories SNOMED: 055443777, 12211604169652 (6) Blindness of both eyes ICD Codes: H54.0 - Blindness SNOMED: 447862946 (7) Intractable back pain ICD Codes: M54.9 - Dorsalgia, unspecified SNOMED: 503632442 (8) ESRD (end stage renal disease) on dialysis ICD Codes: N18.6 - End stage renal disease; Z99.2 - Dependence on renal dialysis SNOMED: 001945728 Status: stable, progressing Assessment/Plan: o2p ulm tx pt diet dialysis cbc bmp am dc plan w hh Subjective Constitutional: Reports: weakness Allergies: Coded Allergies: NO KNOWN ALLERGIES (Unverified Allergy, Unknown, 10/15/15) All Systems: reviewed and negative except above Subjective calm in bed Objective Last 24 Hour Vital Signs Date Time Temp Pulse Resp B/P (MAP) Pulse Ox O2 Delivery O2 Flow Rate FiO2 02/06/20 07:26 68 16 97 Room Air 21 02/06/20 04:00 97.7 65 20 166/77 (106) 95 02/06/20 01:29 166/81 02/06/20 00:00 97.9 75 24 166/81 (109) 96 02/05/20 22:30 160/87 02/05/20 21:00 Room Air 02/05/20 20:24 75 18 98 Room Air 21 02/05/20 20:00 97.7 56 22 160/87 (111) 96 02/05/20 18:01 146/76 02/05/20 16:00 97.7 69 21 146/76 (99) 100 02/05/20 12:46 160/64 02/05/20 12:00 97.5 53 20 160/64 (96) 97 02/05/20 09:00 Room Air 02/05/20 08:42 68 20 96 Room Air 21 Intake and Output 02/05/20 02/06/20 19:00 07:00 Intake Total 2450 ml 500 ml Output Total 2000 ml Balance 450 ml 500 ml Intake Oral 450 ml 500 ml Hemodialysis 2000 ml Hemodialysis UF 2000 ml Laboratory Tests 02/06/20 05:55: White Blood Count 6.3, Red Blood Count 3.70L, Hemoglobin 9.0L, Hematocrit 29.2L , Mean Corpuscular Volume 79L, Mean Corpuscular Hemoglobin 24.4L, Mean Corpuscular Hemoglobin Concent 31.0L, Red Cell Distribution Width 17.0H, Platelet Count 232, Mean Platelet Volume 5.9L, Neutrophils (%) (Auto) 60.0, Lymphocytes (%) (Auto) 17.7L, Monocytes (%) (Auto) 15.6H, Eosinophils (%) (Auto ) 5.3H, Basophils (%) (Auto) 1.3, Sodium Level 135L, Potassium Level 4.7, Chloride Level 98, Carbon Dioxide Level 26, Anion Gap 11, Blood Urea Nitrogen 59H, Creatinine 6.8H, Estimat Glomerular Filtration Rate 7.5, Glucose Level 119H , Uric Acid 4.3, Calcium Level 8.9, Phosphorus Level 5.4H, Magnesium Level 2.7H , Total Bilirubin 0.6, Aspartate Amino Transf (AST/SGOT) 18, Alanine Aminotransferase (ALT/SGPT) 25, Alkaline Phosphatase 361H, Total Protein 7.7, Albumin 3.6, Globulin 4.1, Albumin/Globulin Ratio 0.9L Height (Feet): 5 Height (Inches): 9.00 Weight (Pounds): 278 General Appearance: lethargic EENT: normal ENT inspection Neck: normal alignment Cardiovascular: normal peripheral pulses, normal rate, regular rhythm Respiratory/Chest: chest wall non-tender, lungs clear, normal breath sounds Abdomen: normal bowel sounds, non tender, soft Extremities: normal inspection Edema: no edema noted Arm (L), no edema noted Arm (R), no edema noted Leg (L), no edema noted Leg (R), no edema noted Pedal (L), no edema noted Pedal (R), no edema noted Generalized Neurologic: motor weakness Skin: normal pigmentation, warm/dry Roderick Henning 13, 2020 08:41
--- NOTE | 2020-02-06 09:07 | Infectious Diseases Prog Note ---
Assessment/Plan Assessment/Plan ASSESSMENT: The patient is a 64-year-old female with positive blood culture CONS ,persistent 01/30 Bc: (1/2)CoNS and Citrobacter / , 02/01 Bc: CoNS - (outside facility, # of the +ve cultures are not clear) A 2D echo from outside facility did not show any evidence of vegetation Normal white blood cells. Afebrile. as per Carido pt is high risk for CLAY: Diabetes. CHF. ESRD. Hypertension. Obesity. PLAN: cont Cefepime # 03/02 continue the patient on vancomycin, day # ( will Rx for probable SBE) Monitor CBC. Monitor BMP. Monitor cultures (blood) ok to DC pt w cont of AB Rx . Subjective Allergies: Coded Allergies: NO KNOWN ALLERGIES (Unverified Allergy, Unknown, 10/15/15) Subjective no acute event pt wants to go home Objective Vital Signs Last 24 Hour Vital Signs Date Time Temp Pulse Resp B/P (MAP) Pulse Ox O2 Delivery O2 Flow Rate FiO2 02/06/20 07:26 68 16 97 Room Air 21 02/06/20 04:00 97.7 65 20 166/77 (106) 95 02/06/20 01:29 166/81 02/06/20 00:00 97.9 75 24 166/81 (109) 96 02/05/20 22:30 160/87 02/05/20 21:00 Room Air 02/05/20 20:24 75 18 98 Room Air 21 02/05/20 20:00 97.7 56 22 160/87 (111) 96 02/05/20 18:01 146/76 02/05/20 16:00 97.7 69 21 146/76 (99) 100 02/05/20 12:46 160/64 02/05/20 12:00 97.5 53 20 160/64 (96) 97 Height (Feet): 5 Height (Inches): 9.00 Weight (Pounds): 278 HEENT: mucous membranes moist Respiratory/Chest: normal breath sounds Cardiovascular: regularly irregular Abdomen: non distended Laboratory Tests Test 02/06/20 05:55 White Blood Count 6.3 K/UL (4.8-10.8) Red Blood Count 3.70 M/UL (4.20-5.40) L Hemoglobin 9.0 G/DL (12.0-16.0) L Hematocrit 29.2 % (37.0-47.0) L Mean Corpuscular Volume 79 FL (80-99) L Mean Corpuscular Hemoglobin 24.4 PG (27.0-31.0) L Mean Corpuscular Hemoglobin Concent 31.0 G/DL (32.0-36.0) L Red Cell Distribution Width 17.0 % (11.6-14.8) H Platelet Count 232 K/UL (150-450) Mean Platelet Volume 5.9 FL (6.5-10.1) L Neutrophils (%) (Auto) 60.0 % (45.0-75.0) Lymphocytes (%) (Auto) 17.7 % (20.0-45.0) L Monocytes (%) (Auto) 15.6 % (1.0-10.0) H Eosinophils (%) (Auto) 5.3 % (0.0-3.0) H Basophils (%) (Auto) 1.3 % (0.0-2.0) Sodium Level 135 MMOL/L (136-145) L Potassium Level 4.7 MMOL/L (3.5-5.1) Chloride Level 98 MMOL/L (98-107) Carbon Dioxide Level 26 MMOL/L (21-32) Anion Gap 11 mmol/L (5-15) Blood Urea Nitrogen 59 mg/dL (7-18) H Creatinine 6.8 MG/DL (0.55-1.30) H Estimat Glomerular Filtration Rate 7.5 mL/min (>60) Glucose Level 119 MG/DL (74-106) H Uric Acid 4.3 MG/DL (2.6-7.2) Calcium Level 8.9 MG/DL (8.5-10.1) Phosphorus Level 5.4 MG/DL (2.5-4.9) H Magnesium Level 2.7 MG/DL (1.8-2.4) H Total Bilirubin 0.6 MG/DL (0.2-1.0) Aspartate Amino Transf (AST/SGOT) 18 U/L (15-37) Alanine Aminotransferase (ALT/SGPT) 25 U/L (12-78) Alkaline Phosphatase 361 U/L (46-116) H Total Protein 7.7 G/DL (6.4-8.2) Albumin 3.6 G/DL (3.4-5.0) Globulin 4.1 g/dL Albumin/Globulin Ratio 0.9 (1.0-2.7) L Current Medications Medications (Trade) Dose Ordered Sig/Josi Route PRN Reason Start Time Stop Time Status Last Admin Dose Admin Acetaminophen (Tylenol) 650 mg Q4H PRN ORAL Mild Pain/Temp > 100.5 01/30/20 19:00 02/24/20 18:59 01/31/20 17:55 Acetaminophen/ Hydrocodone Bitart ([place] 10/325) 1 tab Q6H PRN ORAL Severe Pain (Pain Scale 7-10) 02/02/20 15:30 02/09/20 15:29 02/05/20 22:30 Albuterol/ Ipratropium (Albuterol/ Ipratropium) 3 ml Q4HRT PRN HHN Shortness of Breath 02/01/20 10:15 02/06/20 10:14 Amlodipine Besylate (Norvasc) 10 mg DAILY ORAL 01/31/20 09:00 02/25/20 08:59 02/04/20 09:22 Atorvastatin Calcium (Lipitor) 10 mg BEDTIME ORAL 01/30/20 21:00 02/24/20 20:59 02/05/20 20:53 Cefepime HCl 500 mg/Dextrose 55 ml @ 110 mls/hr Q24H IV 02/03/20 09:00 02/10/20 08:59 02/04/20 09:12 Dextrose (Dextrose 50%) 25 ml Q30M PRN IV Hypoglycemia 01/30/20 19:00 02/24/20 18:59 Dextrose (Dextrose 50%) 50 ml Q30M PRN IV Hypoglycemia 01/30/20 19:00 02/24/20 18:59 Diphenhydramine HCl (Benadryl) 50 mg Q6H PRN ORAL Itching 01/30/20 19:00 02/24/20 18:59 02/06/20 04:32 Docusate Sodium (Colace) 100 mg TWICE A DAY ORAL 01/31/20 09:00 02/24/20 17:59 02/05/20 18:01 Epoetin Jose De Jesus (Epoetin Jose De Jesus(ESRD on dialysis)) 6,000 unit SUN-SUN-FRI SUBQ 01/30/20 21:00 02/25/20 20:59 02/04/20 21:47 Gabapentin (Neurontin) 300 mg THREE TIMES A DAY ORAL 01/31/20 09:00 02/24/20 17:59 02/05/20 18:01 Heparin Sodium (Porcine) (Heparin 5000 units/ml) 5,000 units EVERY 12 HOURS SUBQ 01/30/20 21:00 02/25/20 09:44 02/05/20 20:53 Hydralazine HCl (Apresoline) 25 mg Q4H PRN ORAL For High Blood Pressure 02/02/20 14:30 03/03/20 14:29 02/05/20 22:30 Hydralazine HCl (Apresoline) 100 mg Q8H ORAL 01/31/20 02:00 02/24/20 17:59 02/06/20 01:29 Insulin Aspart (NovoLOG) BEFORE MEALS AND HS SUBQ 01/30/20 21:00 02/24/20 16:29 02/04/20 16:59 Pantoprazole (Protonix) 40 mg DAILY ORAL 01/31/20 09:00 02/25/20 08:59 02/05/20 10:22 Polyethylene Glycol (Miralax) 17 gm DAILYPRN PRN ORAL Constipation 01/30/20 19:00 02/29/20 18:59 02/06/20 04:47 Pyridoxine HCl (Vitamin B6) 50 mg DAILY ORAL 01/31/20 09:00 02/25/20 08:59 02/05/20 10:22 Sevelamer Carbonate (Renvela) 1,600 mg THREE TIMES A DAY ORAL 01/31/20 09:00 02/28/20 17:59 02/05/20 18:01 Thiamine HCl (Vitamin B1) 100 mg DAILY ORAL 01/31/20 09:00 02/25/20 11:44 02/05/20 10:22 Vancomycin HCl (Vanco rx to dose) 1 ea DAILY PRN MISC Per rx protocol 01/30/20 19:00 02/29/20 18:59 Mic Long MD Feb 06, 2020 09:07
--- NOTE | 2020-02-06 09:14 | Nephrology Progress Note ---
Assessment/Plan Problem List: (1) ESRD (end stage renal disease) on dialysis (2) Hypoglycemia (3) Diabetes (4) Anemia (5) Patient is [employer] (6) Pacemaker (7) Obese (8) HTN (hypertension) Assessment End stage renal disease on dialysis. Has a right upper arm dialysis fistula as Acces . Getting dialysis Sunday. acute encephalopathy due to hypoglycemia h/o UTI (urinary tract infection) & Pyelonephritis morbid obesity Anemia / Jehova's witness CAD previous stent HTN- hypertensive urgency upon arrival to [facility] [place]. s/p AVG DM 2 bilateral eye blindness h/o CHF Pacemaker Plan Next dialysis February 06 Check electrolytes and renal parameters tomorrow Discharge planning in process EPO, thiamin and B6 Phos binders diet to renal , medium CHO per consultants Subjective ROS Limited/Unobtainable: No Constitutional: Reports: malaise Objective Objective Last 24 Hour Vital Signs Date Time Temp Pulse Resp B/P (MAP) Pulse Ox O2 Delivery O2 Flow Rate FiO2 02/06/20 07:26 68 16 97 Room Air 21 02/06/20 04:00 97.7 65 20 166/77 (106) 95 02/06/20 01:29 166/81 02/06/20 00:00 97.9 75 24 166/81 (109) 96 02/05/20 22:30 160/87 02/05/20 21:00 Room Air 02/05/20 20:24 75 18 98 Room Air 21 02/05/20 20:00 97.7 56 22 160/87 (111) 96 02/05/20 18:01 146/76 02/05/20 16:00 97.7 69 21 146/76 (99) 100 02/05/20 12:46 160/64 02/05/20 12:00 97.5 53 20 160/64 (96) 97 Intake and Output 02/05/20 02/06/20 19:00 07:00 Intake Total 2450 ml 500 ml Output Total 2000 ml Balance 450 ml 500 ml Intake Oral 450 ml 500 ml Hemodialysis 2000 ml Hemodialysis UF 2000 ml Laboratory Tests 02/06/20 05:55: White Blood Count 6.3, Red Blood Count 3.70L, Hemoglobin 9.0L, Hematocrit 29.2L , Mean Corpuscular Volume 79L, Mean Corpuscular Hemoglobin 24.4L, Mean Corpuscular Hemoglobin Concent 31.0L, Red Cell Distribution Width 17.0H, Platelet Count 232, Mean Platelet Volume 5.9L, Neutrophils (%) (Auto) 60.0, Lymphocytes (%) (Auto) 17.7L, Monocytes (%) (Auto) 15.6H, Eosinophils (%) (Auto ) 5.3H, Basophils (%) (Auto) 1.3, Sodium Level 135L, Potassium Level 4.7, Chloride Level 98, Carbon Dioxide Level 26, Anion Gap 11, Blood Urea Nitrogen 59H, Creatinine 6.8H, Estimat Glomerular Filtration Rate 7.5, Glucose Level 119H , Uric Acid 4.3, Calcium Level 8.9, Phosphorus Level 5.4H, Magnesium Level 2.7H , Total Bilirubin 0.6, Aspartate Amino Transf (AST/SGOT) 18, Alanine Aminotransferase (ALT/SGPT) 25, Alkaline Phosphatase 361H, Total Protein 7.7, Albumin 3.6, Globulin 4.1, Albumin/Globulin Ratio 0.9L Height (Feet): 5 Height (Inches): 9.00 Weight (Pounds): 278 General Appearance: no apparent distress Objective no change Bryan Hunter MD Feb 06, 2020 09:14
[2020-02-06] MEDS ORDERED: Fleet's Mineral Oil Enema RECTAL PRN ×2 (09:45)
[2020-02-06] MEDS: Docusate 100mg cap ORAL SCH (09:46)
[2020-02-06] MEDS: Pyridoxine 50mg tab ORAL SCH (09:47)
[2020-02-06] MEDS: Thiamine 100mg tab ORAL SCH (09:52)
[2020-02-06] MEDS: Heparin 5000 units/ml inj SUBQ SCH (09:54)
[2020-02-06] MEDS: Cefepime HCl 500 MG in D5W 55 ML IV SCH (09:56)
[2020-02-06 12:00] VITALS: BP 165/76
--- NOTE | 2020-02-06 12:10 | Pulmonology Progress Note ---
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, pt is very high risk for mayco Subjective ROS Limited/Unobtainable: No Constitutional: Reports: no symptoms HEENT: Repors: no symptoms Allergies: Coded Allergies: NO KNOWN ALLERGIES (Unverified Allergy, Unknown, 10/15/15) Objective Last 24 Hour Vital Signs Date Time Temp Pulse Resp B/P (MAP) Pulse Ox O2 Delivery O2 Flow Rate FiO2 02/06/20 09:48 78 188/86 02/06/20 09:47 188/82 02/06/20 09:00 Room Air 02/06/20 08:00 97.8 66 18 188/82 (117) 96 02/06/20 07:26 68 16 97 Room Air 21 02/06/20 04:00 97.7 65 20 166/77 (106) 95 02/06/20 01:29 166/81 02/06/20 00:00 97.9 75 24 166/81 (109) 96 02/05/20 22:30 160/87 02/05/20 21:00 Room Air 02/05/20 20:24 75 18 98 Room Air 21 02/05/20 20:00 97.7 56 22 160/87 (111) 96 02/05/20 18:01 146/76 02/05/20 16:00 97.7 69 21 146/76 (99) 100 02/05/20 12:46 160/64 Intake and Output 02/05/20 02/06/20 19:00 07:00 Intake Total 2450 ml 500 ml Output Total 2000 ml Balance 450 ml 500 ml Intake Oral 450 ml 500 ml Hemodialysis 2000 ml Hemodialysis UF 2000 ml Objective no new complains General Appearance: WD/WN HEENT: normocephalic, atraumatic Respiratory/Chest: chest wall non-tender, lungs clear Cardiovascular: normal peripheral pulses, normal rate Abdomen: normal bowel sounds, no organomegaly Extremities: no cyanosis Skin: no rash Laboratory Tests 02/06/20 05:55: White Blood Count 6.3, Red Blood Count 3.70L, Hemoglobin 9.0L, Hematocrit 29.2L , Mean Corpuscular Volume 79L, Mean Corpuscular Hemoglobin 24.4L, Mean Corpuscular Hemoglobin Concent 31.0L, Red Cell Distribution Width 17.0H, Platelet Count 232, Mean Platelet Volume 5.9L, Neutrophils (%) (Auto) 60.0, Lymphocytes (%) (Auto) 17.7L, Monocytes (%) (Auto) 15.6H, Eosinophils (%) (Auto ) 5.3H, Basophils (%) (Auto) 1.3, Sodium Level 135L, Potassium Level 4.7, Chloride Level 98, Carbon Dioxide Level 26, Anion Gap 11, Blood Urea Nitrogen 59H, Creatinine 6.8H, Estimat Glomerular Filtration Rate 7.5, Glucose Level 119H , Uric Acid 4.3, Calcium Level 8.9, Phosphorus Level 5.4H, Magnesium Level 2.7H , Total Bilirubin 0.6, Aspartate Amino Transf (AST/SGOT) 18, Alanine Aminotransferase (ALT/SGPT) 25, Alkaline Phosphatase 361H, Total Protein 7.7, Albumin 3.6, Globulin 4.1, Albumin/Globulin Ratio 0.9L Current Medications Medications (Trade) Dose Ordered Sig/Josi Route PRN Reason Start Time Stop Time Status Last Admin Dose Admin Acetaminophen (Tylenol) 650 mg Q4H PRN ORAL Mild Pain/Temp > 100.5 01/30/20 19:00 02/24/20 18:59 01/31/20 17:55 Acetaminophen/ Hydrocodone Bitart ([place] 10/325) 1 tab Q6H PRN ORAL Severe Pain (Pain Scale 7-10) 02/02/20 15:30 02/09/20 15:29 02/05/20 22:30 Amlodipine Besylate (Norvasc) 10 mg DAILY ORAL 01/31/20 09:00 02/25/20 08:59 02/06/20 09:48 Atorvastatin Calcium (Lipitor) 10 mg BEDTIME ORAL 01/30/20 21:00 02/24/20 20:59 02/05/20 20:53 Cefepime HCl 500 mg/Dextrose 55 ml @ 110 mls/hr Q24H IV 02/03/20 09:00 02/10/20 08:59 02/06/20 09:56 Dextrose (Dextrose 50%) 25 ml Q30M PRN IV Hypoglycemia 01/30/20 19:00 02/24/20 18:59 Dextrose (Dextrose 50%) 50 ml Q30M PRN IV Hypoglycemia 01/30/20 19:00 02/24/20 18:59 Diphenhydramine HCl (Benadryl) 50 mg Q6H PRN ORAL Itching 01/30/20 19:00 02/24/20 18:59 02/06/20 04:32 Docusate Sodium (Colace) 100 mg TWICE A DAY ORAL 01/31/20 09:00 02/24/20 17:59 02/06/20 09:46 Epoetin Jose De Jesus (Epoetin Jose De Jesus(ESRD on dialysis)) 6,000 unit SUN-SUN-SUN SUBQ 01/30/20 21:00 02/25/20 20:59 02/04/20 21:47 Gabapentin (Neurontin) 300 mg THREE TIMES A DAY ORAL 01/31/20 09:00 02/24/20 17:59 02/06/20 09:46 Heparin Sodium (Porcine) (Heparin 5000 units/ml) 5,000 units EVERY 12 HOURS SUBQ 01/30/20 21:00 02/25/20 09:44 02/06/20 09:54 Hydralazine HCl (Apresoline) 25 mg Q4H PRN ORAL For High Blood Pressure 02/02/20 14:30 03/03/20 14:29 02/05/20 22:30 Hydralazine HCl (Apresoline) 100 mg Q8H ORAL 01/31/20 02:00 02/24/20 17:59 02/06/20 09:47 Insulin Aspart (NovoLOG) BEFORE MEALS AND HS SUBQ 01/30/20 21:00 02/24/20 16:29 02/04/20 16:59 Mineral Oil (Fleet's Mineral Oil Enema) 133 ml Q12H PRN RECTAL Constipation 02/06/20 09:45 03/07/20 09:44 02/06/20 11:27 Pantoprazole (Protonix) 40 mg DAILY ORAL 01/31/20 09:00 02/25/20 08:59 02/06/20 09:47 Polyethylene Glycol (Miralax) 17 gm DAILYPRN PRN ORAL Constipation 01/30/20 19:00 02/29/20 18:59 02/06/20 04:47 Pyridoxine HCl (Vitamin B6) 50 mg DAILY ORAL 01/31/20 09:00 02/25/20 08:59 02/06/20 09:47 Sevelamer Carbonate (Renvela) 1,600 mg THREE TIMES A DAY ORAL 01/31/20 09:00 02/28/20 17:59 02/06/20 09:47 Thiamine HCl (Vitamin B1) 100 mg DAILY ORAL 01/31/20 09:00 02/25/20 11:44 02/06/20 09:52 Vancomycin HCl (Vanco rx to dose) 1 ea DAILY PRN MISC Per rx protocol 01/30/20 19:00 02/29/20 18:59 Meghana Murillo MD Feb 06, 2020 12:10
[2020-02-06] MEDS: HydrALAZINE 25mg tab ORAL PRN (12:47)
--- NOTE | 2020-02-06 12:55 | General Progress Note ---
Assessment/Plan Assessment/Plan: (1) Morbid Obesity (2) Peripheral Neuropathy (3) Lumbar DDD (4) Lumbar Spondylosis (5) Lumbar Radiculopathy Patient to be continued on Minto D/w Dr. Santiago and he concurred. Subjective Date patient seen: Feb 06, 2020 Time patient seen: 12:00 - pm Allergies: Coded Allergies: NO KNOWN ALLERGIES (Unverified Allergy, Unknown, 10/15/15) Subjective Constitutional: Reports: no symptoms Eye: Reports: blurred vision ENT: Reports: no symptoms Respiratory: Reports: no symptoms Cardiovascular: Reports: no symptoms Gastrointestinal: Reports: no symptoms Genitourinary: Reports: no symptoms Musculoskeletal: Reports: back pain Skin: Reports: no symptoms Psychiatric: Reports: no symptoms Neurological: Reports: tingling, focal weakness Endocrine: Reports: no symptoms Hematologic/Lymphatic: Reports: no symptoms SUBJECTIVE: Patient reports that pain has been stable on the Minto. No new complaints at this time. Objective Last 24 Hour Vital Signs Date Time Temp Pulse Resp B/P (MAP) Pulse Ox O2 Delivery O2 Flow Rate FiO2 02/06/20 12:47 165/76 02/06/20 09:48 78 188/86 02/06/20 09:47 188/82 02/06/20 09:00 Room Air 02/06/20 08:00 97.8 66 18 188/82 (117) 96 02/06/20 07:26 68 16 97 Room Air 21 02/06/20 04:00 97.7 65 20 166/77 (106) 95 02/06/20 01:29 166/81 02/06/20 00:00 97.9 75 24 166/81 (109) 96 02/05/20 22:30 160/87 02/05/20 21:00 Room Air 02/05/20 20:24 75 18 98 Room Air 21 02/05/20 20:00 97.7 56 22 160/87 (111) 96 02/05/20 18:01 146/76 02/05/20 16:00 97.7 69 21 146/76 (99) 100 Intake and Output 02/05/20 02/06/20 19:00 07:00 Intake Total 2450 ml 500 ml Output Total 2000 ml Balance 450 ml 500 ml Intake Oral 450 ml 500 ml Hemodialysis 2000 ml Hemodialysis UF 2000 ml Laboratory Tests 02/06/20 05:55: White Blood Count 6.3, Red Blood Count 3.70L, Hemoglobin 9.0L, Hematocrit 29.2L , Mean Corpuscular Volume 79L, Mean Corpuscular Hemoglobin 24.4L, Mean Corpuscular Hemoglobin Concent 31.0L, Red Cell Distribution Width 17.0H, Platelet Count 232, Mean Platelet Volume 5.9L, Neutrophils (%) (Auto) 60.0, Lymphocytes (%) (Auto) 17.7L, Monocytes (%) (Auto) 15.6H, Eosinophils (%) (Auto ) 5.3H, Basophils (%) (Auto) 1.3, Sodium Level 135L, Potassium Level 4.7, Chloride Level 98, Carbon Dioxide Level 26, Anion Gap 11, Blood Urea Nitrogen 59H, Creatinine 6.8H, Estimat Glomerular Filtration Rate 7.5, Glucose Level 119H , Uric Acid 4.3, Calcium Level 8.9, Phosphorus Level 5.4H, Magnesium Level 2.7H , Total Bilirubin 0.6, Aspartate Amino Transf (AST/SGOT) 18, Alanine Aminotransferase (ALT/SGPT) 25, Alkaline Phosphatase 361H, Total Protein 7.7, Albumin 3.6, Globulin 4.1, Albumin/Globulin Ratio 0.9L Height (Feet): 5 Height (Inches): 9.00 Weight (Pounds): 278 Objective General Appearance: no apparent distress, alert HEENT: normocephalic, atraumatic Neck: non-tender, normal alignment Respiratory/Chest: decreased breath sounds Cardiovascular/Chest: normal rate, regular rhythm Abdomen: non tender, soft Extremities: non-tender Neurologic: alert, responsive Johnnie Isidro Feb 06, 2020 12:55
[2020-02-06 13:52] VITALS: BP 165/76
[2020-02-06] MEDS ORDERED: CEFEPIME-D2 GM/50 ML IVPB (14:40)
[2020-02-06] MEDS: HYDROcodone/Acetamin 10/325 tab ORAL PRN (14:53)
--- NOTE | 2020-02-08 17:03 | Discharge Summary ---
Discharge Summary Discharge Summary _ DATE OF ADMISSION: 01/25/2020 DATE OF DISCHARGE: 02/06/2020 DISCHARGED BY: Dr. Roderick Henning CONSULTANTS: Dr. Laura Rogel [facility]SE: Patient is a 64-year-old female, who lives at home, apparently presented to [facility] due to altered mental status and shortness of breath. She was subsequently transferred to [place]. Apparently, patient was talking to her friend and told her to come in and check on her. When the friend arrived, she noticed patient was altered. The friend called paramedics. Upon arrival of paramedics, blood sugar was 53. Patient received 1 ampoule of D10 and blood sugar improved to 92 with improvement in mental status. CAT scan of the head revealed no acute intracranial pathology. Chest x-ray showed normal lung delcid. Patient was stabilized and was transferred to [place] telemetry floor. Wallboard Worker was consulted. Patient has history of diabetes mellitus. Januvia and Levemir was placed on hold. Blood glucose was monitored and was continued on before meals and nightly coverage of low-dose NovoLog. Academic Director was consulted. Blood pressure was fluctuating. Vital signs monitored. Patient denied chest pain. She was continued on beta-hardik, hydralazine, losartan, and Norvasc. She was given Lipitor. She has history of end-stage renal disease. She has a right upper arm dialysis fistula as access. She gets dialysis every Sunday, and Sunday. Patient has anemia and is a Tenriism. She was given Epogen, thiamine and B6. She was placed on phosphate binders. Blood culture showed growth of coagulase-negative staph. ID was consulted. Patient was started empirically on vancomycin. Previous echocardiogram did not show any evidence of vegetation. Ejection fraction 60 to 65%, RVSP 75 consistent with severe pulmonary hypertension, moderate mitral regurgitation and tricuspid regurgitation. She complained of generalized body pain. She was given [place]. She had episodes of elevated potassium and was given Kayexalate. Repeat blood culture showed coagulase-negative staph. Patient has persistent positive blood culture. CLAY was recommended. Upon team discussion, patient will be high risk for the procedure. Patient will be treated with prolonged empiric antibiotic for probable SBE. Patient was eventually discharged to a SNF. FINAL DIAGNOSES: Probable SBE Acute metabolic encephalopathy due to hypoglycemia, resolved Accelerated hypertension Diabetes mellitus with episodes of hypoglycemia Intractable back pain End-stage renal disease on hemodialysis Morbid obesity Blindness on both eyes Coronary artery disease Lumbar radiculopathy Anemia of chronic disease Tenriism Pacemaker DISPOSITION: DC to SNF. DISCHARGE MEDICATIONS: Refer to Discharge Medication List. IV vancomycin via HD with end date of 03/10/2020; vancomycin pharmacy to dose. DISCHARGE INSTRUCTIONS: Follow-up in a week. I have been assigned to complete a discharge summary on this account, I was not involved with the patient's management.--RAJENDRA Dutta Jacqueline Robles NP Feb 08, 2020 17:03
== END 2020-02-06 15:59 | DRG 637 ==
LOC: UNDOADMIN 13:14 → 2E 13:14 → 4E 01-30 18:22
PROC: 5A1D70Z Performance of Urinary Filtration, Intermittent, Less than 6 Hours Per Day (ICD-10-PCS; principal; 2020-01-28)
DX: E11.649 Type 2 diabetes mellitus with hypoglycemia without coma (principal); G93.41 Metabolic encephalopathy; I33.0 Acute and subacute infective endocarditis; I13.2 Hypertensive heart and chronic kidney disease with heart failure and with stage 5 chronic kidney disease, or end stage renal disease; R78.81 Bacteremia; Z68.41 Body mass index [BMI] 40.0-44.9, adult; E87.1 Hypo-osmolality and hyponatremia; N39.0 Urinary tract infection, site not specified; I16.0 Hypertensive urgency; N18.6 End stage renal disease; I50.9 Heart failure, unspecified; E66.01 Morbid (severe) obesity due to excess calories; I27.20 Pulmonary hypertension, unspecified; Z99.2 Dependence on renal dialysis; D63.8 Anemia in other chronic diseases classified elsewhere; M54.16 Radiculopathy, lumbar region; I25.10 Atherosclerotic heart disease of native coronary artery without angina pectoris; H54.7 Unspecified visual loss; Z95.0 Presence of cardiac pacemaker; Z79.4 Long term (current) use of insulin; E87.8 Other disorders of electrolyte and fluid balance, not elsewhere classified; F10.21 Alcohol dependence, in remission; I25.83 Coronary atherosclerosis due to lipid rich plaque; Z95.5 Presence of coronary angioplasty implant and graft; M47.896 Other spondylosis, lumbar region; G62.9 Polyneuropathy, unspecified; I34.0 Nonrheumatic mitral (valve) insufficiency; I36.1 Nonrheumatic tricuspid (valve) insufficiency
CPT/HCPCS: 36415; 80048; 80053; 80061; 80076; 80202; 82550; 82607; 82728; 82746; 82962; 83036; 83540; 83550; 83735; 83880; 84100; 84484; 84550; 85025; 86140; 86706; 87040; 87081; 87181; 93005; 93306; 93970; 94664; J1815

== ENCOUNTER 2020-02-20 08:13 | Inpatient (IN) | payer MEDICARE, OTHER ==
[2020-02-20] VITALS (14 sets, daily range): BP systolic 114–206; BP diastolic 49–111
[~2020-02-20] VITALS: Ht 170.2 cm; Wt 98.0 kg
[~2020-02-20 08:13] MED LIST changes: +CEFEPIME-D2 GM/50 ML IVPB; +HYDRALAZINE HCL25 M1 ORAL
[2020-02-20] MEDS ORDERED: MIRALAX17 G2 ORAL (08:16)
--- NOTE | 2020-02-20 08:17 | Emergency Room Report ---
History of Present Illness General Chief Complaint: Dyspnea/Respdistress Source: Patient Present Illness [facility]PI [facility] History is obtained by EMS and the patient's medical record. Per EMS the patient was febrile, hypoxemic and altered on their arrival. The patient has a history of diabetes, end-stage renal disease, hypertension and CHF. Per EMS the patient's O2 saturations on arrival were 84% on nasal cannula. She was placed on a nonrebreather mask and did have increase in her O2 saturation to 100%. There is no other history of present illness available. Allergies: Coded Allergies: NO KNOWN ALLERGIES (Unverified Allergy, Unknown, 10/15/15) COVID-19 Screening Contact w/high risk pt: No Recent Travel to affected area: No Experienced COVID-19 symptoms?: Yes COVID-19 symptoms experienced: Fever (T>100.4F or >38C), Shortness of Breath Patient History Past Medical History: see triage record, DM, HTN, MO, CAD, CHF, GERD Social History: Denies: smoking, alcohol use, drug use Reviewed Nursing Documentation: PMH: Agreed; PSxH: Agreed Nursing Documentation-PMH Hx Cardiac Problems: Yes Hx Hypertension: Yes Hx Pacemaker: No Hx Asthma: Yes Hx COPD: Yes Hx Diabetes: Yes Hx Cancer: No Hx Gastrointestinal Problems: No Hx Dialysis: Yes - Hx Neurological Problems: Yes Hx Peripheral Neuropathy: Yes - secondary to DM Hx Memory Loss: Yes Hx Tremors: Yes Hx Vertigo: Yes Hx Dizziness: Yes Hx Syncope: Yes Hx Headaches: Yes Hx Weakness: Yes Hx Fatigue: Yes Review of Systems All Other Systems: limited Physical Exam Vital Signs Date Time Temp Pulse Resp B/P (MAP) Pulse Ox O2 Delivery O2 Flow Rate FiO2 02/20/20 08:08 102.6 82 24 199/111 (140) 82 Room Air Sp02 EP Interpretation: reviewed, normal General Appearance: obese, other - GCS 7, Chronically Ill Head: normocephalic, atraumatic Eyes: bilateral eye normal inspection, bilateral eye PERRL ENT: normal pharynx, other - Large tongue Neck: normal inspection, full range of motion, supple/symm/no masses Respiratory: no respiratory distress, no retraction, no accessory muscle use, rales Cardiovascular #1: regular rate, rhythm, no edema Gastrointestinal: soft, non-distended Rectal: deferred Musculoskeletal: normal inspection, non-tender Neurologic: other - GCS 7. Only localizes to pain. Psychiatric: other - unable to assess. Skin: other - See RN skin exam. Procedures Intubation Intubation : Consent: Emergent Intubation Method: orotracheal Tube Size (cm): 7.5 Medications: Etomidate, Rocuronium Intubation Complications: no complications Post Intubation Xray: Yes Progress/Xray Impression: Appropriate tube placement. Attempts: One Patient Tolerated: Well Complications: None Medical Decision Making Diagnostic Impression: Primary Impression: ARDS (adult respiratory distress syndrome) Additional Impressions: Fever Sepsis UTI (urinary tract infection) Respiratory failure Thrombocytopenia Lymphopenia ER Course This patient presented in respiratory failure. She also has a fever and a urinary tract infection. She was given broad-spectrum antibiotics. The patient 's chest x-ray was concerning for early ARDS. Given the concern for COVID-19 in this patient and the patient's normal blood pressure, I did not do IV fluid resuscitation per recommendations in the current COVID-19 literature that shows worsening outcome with aggressive IV fluids. The patient was intubated by rapid sequence intubation and full PPE with PAPR. A viral filter was placed on the ventilator. The patient was intubated by true rapid sequence intubation without any bagging. The patient is on and is admitted to the ICU. The patient is found to have the typical findings of COVID-19 to include findings of ARDS, lymphopenia, thrombocytopenia, and increased CRP. This patient is critically ill. This patient required complex medical decision- making, aggressive intervention, extensive laboratory workup and monitoring. Critical care time: 40 minutes. Laboratory Tests Test 02/20/20 08:20 02/20/20 09:07 02/20/20 09:15 White Blood Count 8.1 K/UL (4.8-10.8) Red Blood Count 4.61 M/UL (4.20-5.40) Hemoglobin 10.9 G/DL (12.0-16.0) L Hematocrit 35.5 % (37.0-47.0) L Mean Corpuscular Volume 77 FL (80-99) L Mean Corpuscular Hemoglobin 23.7 PG (27.0-31.0) L Mean Corpuscular Hemoglobin Concent 30.8 G/DL (32.0-36.0) L Red Cell Distribution Width 16.3 % (11.6-14.8) H Platelet Count 111 K/UL (150-450) L Mean Platelet Volume 7.4 FL (6.5-10.1) Neutrophils (%) (Auto) 59.4 % (45.0-75.0) Lymphocytes (%) (Auto) 15.0 % (20.0-45.0) L Monocytes (%) (Auto) 18.8 % (1.0-10.0) H Eosinophils (%) (Auto) 4.4 % (0.0-3.0) H Basophils (%) (Auto) 2.4 % (0.0-2.0) H Prothrombin Time 12.0 SEC (9.30-11.50) H Prothrombin Time INR 1.1 (0.9-1.1) Activated Partial Thromboplast Time 32 SEC (23-33) Sodium Level 135 MMOL/L (136-145) L Potassium Level 5.3 MMOL/L (3.5-5.1) H Chloride Level 95 MMOL/L (98-107) L Carbon Dioxide Level 33 MMOL/L (21-32) H Anion Gap 7 mmol/L (5-15) Blood Urea Nitrogen 34 mg/dL (7-18) H Creatinine 5.1 MG/DL (0.55-1.30) H Estimated Glomerular Filtration Rate 10.4 mL/min (>60) Glucose Level 102 MG/DL (74-106) Lactic Acid Level 0.50 mmol/L (0.4-2.0) Calcium Level 9.2 MG/DL (8.5-10.1) Magnesium Level 2.1 MG/DL (1.8-2.4) Total Bilirubin 0.8 MG/DL (0.2-1.0) Aspartate Amino Transferase (AST) 24 U/L (15-37) Alanine Aminotransferase (ALT) 22 U/L (12-78) Alkaline Phosphatase 346 U/L (46-116) H Total Creatine Kinase 52 U/L (26-308) Creatine Kinase MB 0.9 NG/ML (0.0-3.6) Creatine Kinase MB Relative Index 1.7 Troponin I 0.005 ng/mL (0.000-0.056) C-Reactive Protein, Quantitative 1.2 mg/dL (0.00-0.90) H Total Protein 8.4 G/DL (6.4-8.2) H Albumin 4.0 G/DL (3.4-5.0) Globulin 4.4 g/dL Albumin/Globulin Ratio 0.9 (1.0-2.7) L Urine Color Brown Urine Appearance Turbid Urine pH 8 (4.5-8.0) Urine Specific [place] 1.015 (1.005-1.035) Urine Protein 4+ (NEGATIVE) H Urine Glucose (UA) Negative (NEGATIVE) Urine Ketones 1+ (NEGATIVE) H Urine Blood 4+ (NEGATIVE) H Urine Nitrite Positive (NEGATIVE) H Urine Bilirubin Negative (NEGATIVE) Urine Urobilinogen Normal MG/DL (0.0-1.0) Urine Leukocyte Esterase 3+ (NEGATIVE) H Urine RBC Tntc /HPF (0 - 2) H Urine WBC Tntc /HPF (0 - 2) H Urine Squamous Epithelial Cells Moderate /LPF (NONE/OCC) H Urine Bacteria Many /HPF (NONE) H Arterial Blood pH 7.501 (7.350-7.450) Arterial Blood Partial Pressure CO2 43.9 mmHg (35.0-45.0) Arterial Blood Partial Pressure O2 289.9 mmHg (75.0-100.0) H Arterial Blood HCO3 33.5 mmol/L (22.0-26.0) H Arterial Blood Oxygen Saturation 99.2 % (95-100) Arterial Blood Base Excess 9.4 (-2-2) *H Lester Test Positive EKG Diagnostic Results Rate: normal Rhythm: NSR ST Segments: no acute changes Rhythm Strip Diag. Results EP Interpretation: yes Rate: 80's Rhythm: NSR, no PVC's, no ectopy Chest X-Ray Diagnostic Results Chest X-Ray Diagnostic Results : Chest X-Ray Ordered: Yes # of Views/Limited/Complete: 1 View Indication: Shortness of Breath EP Interpretation: Yes Interpretation: other - Diffuse patchy opacities Impression: Other - See above. Electronically Signed by: Mariel Villeda DO Last Vital Signs Date Time Temp Pulse Resp B/P (MAP) Pulse Ox O2 Delivery O2 Flow Rate FiO2 02/20/20 08:08 102.6 82 24 199/111 (140) 82 Room Air Disposition: ADMITTED INPATIENT Condition: Critical Mariel Villeda DO Feb 20, 2020 08:17
--- NOTE | 2020-02-20 08:35 | NUR ---
ED Nurse Note: pt arrived from [facility] due to SOB and sudden ALOC since this morning. per EMS pt's baseline is aao x3-4 and in room air. pt arrived with non breater mask 15L/min and saturating at 100%. non verbal response, response to painful stimuli only. not opening eyes and labored breathing noted. skin hot to touch and rectal temp at 101F and ERMD made aware. pt has shunt on Rt upper arm and 22 G iv made on Lt upper arm. BP cuff applied on Lt leg. pt is in gown and on monitoring and evaluation advisor.
[2020-02-20 08:40] LABS: BASOPHILS % (AUTO) 2.4 % (0.0-2.0); EOSINOPHILS % (AUTO) 4.4 % (0.0-3.0); HEMATOCRIT 35.5 % (37.0-47.0); HEMOGLOBIN 10.9 G/DL (12.0-16.0); MEAN CORPUSCULAR VOLUME 77 FL (80-99); MONOCYTES % (AUTO) 18.8 % (1.0-10.0); NEUTROPHILS % (AUTO) 59.4 % (45.0-75.0); PLATELET COUNT 111 K/UL (150-450); RED BLOOD COUNT 4.61 M/UL (4.20-5.40); RED CELL DISTRIBUTION WIDTH 16.3 % (11.6-14.8); WHITE BLOOD COUNT 8.1 K/UL (4.8-10.8)
--- NOTE | 2020-02-20 08:45 | NUR ---
patient is not responding to pain breathing agonal intubated by dr hurt tolerated the procedure well . etomidate 20 mg and rocuronium 80 mg used for intubation bagged well placed on ventilator
[2020-02-20] MEDS ORDERED: Enalaprilat 2.5mg/2ml Inj IV PRN (09:00)
[2020-02-20] MEDS ORDERED: Albuterol/Ipratropium 3ml neb HHN PRN (09:00)
[2020-02-20] MEDS ORDERED: Morphine Sulfate 4mg/ml Inj (IV USE ONLY) IVP PRN (09:00)
[2020-02-20 09:06] LABS: ANION GAP 7 mmol/L (5-15); BLOOD UREA NITROGEN 34 mg/dL (7-18); CALCIUM 9.2 MG/DL (8.5-10.1); CARBON DIOXIDE 33 MMOL/L (21-32); CHLORIDE 95 MMOL/L (98-107); CREATININE 5.1 MG/DL (0.55-1.30); POTASSIUM 5.3 MMOL/L (3.5-5.1); SODIUM 135 MMOL/L (136-145)
[2020-02-20 09:21] LABS: INR 1.1 (0.9-1.1)
[2020-02-20 09:35] LABS: ALANINE AMINOTRANSFERASE 22 U/L (12-78); ALBUMIN/GLOBULIN RATIO 0.9 (1.0-2.7); ALKALINE PHOSPHATASE 346 U/L (46-116); ASPARTATE AMINO TRANSFERASE 24 U/L (15-37); BILIRUBIN,TOTAL 0.8 MG/DL (0.2-1.0); CKMB 0.9 NG/ML (0.0-3.6); CREATINE KINASE 52 U/L (26-308)
[2020-02-20 09:38] LABS: APPEARANCE,URINE TURBID; BILIRUBIN, URINE NEGATIVE (NEGATIVE); COLOR,URINE BROWN; GLUCOSE, URINE (UA) NEGATIVE (NEGATIVE); KETONES,URINE 1+ (NEGATIVE); LEUKOCYTE ESTERASE ,URINE 3+ (NEGATIVE); NITRITE,URINE POSITIVE (NEGATIVE); PH,URINE 8 (4.5-8.0); PROTEIN,URINE 4+ (NEGATIVE); UROBILINOGEN,URINE NORMAL MG/DL (0.0-1.0)
--- NOTE | 2020-02-20 09:48 | NUR ---
ED Nurse Note: x-ray at bedside.
--- NOTE | 2020-02-20 09:54 | NUR ---
RESPIRATORY NOTE: received pt in trauma with RN and ER MD at bedside. intubated pt at 0845 with ETT 7.5, placed 25cm at the lip. ETT is secured via anchor fast with no prior redness or skin irritation around facial area. sputum was collected and given to RN. Initial vent settings are AC 16 550 100% +5. per Dr. Murillo, vent settings now at AC 16 600 100% +5. ABG drawn and reported. will monitor throughout the day.
[2020-02-20] MEDS ORDERED: Meropenem 1 GM in NS 55 ML IVPB ONE (10:00)
--- NOTE | 2020-02-20 10:41 | NUR ---
ED Nurse Note: report given to NATHALIA Irving
--- NOTE | 2020-02-20 11:15 | NUR ---
ED Nurse Note: pt transferred to ICU with 1 RN, 1 RT, 1 technical sales representatives with ambu bag bagging, covered with cotton to prevent spread possible smith virus, used alternated route to avoid exposure to staff.
--- NOTE | 2020-02-20 11:16 | NUR ---
NURSE NOTES: Received patient from [facility]. Patient is alert and oriented x0, no response to pain. Receiving oxygen via ET Tube 7.0 25cm at the lip line. Vent settings: AC 16, TV 600, FiO2 100%. IV site is Left Upper Arm 22g intact and patent. Tyler catheter is intact, no urine output. Right Upper Arm shunt present, thrill and bruit present. Bed is locked, placed in lowest position, side rails up x3, bed alarm on, call light within reach. Will continue to monitor.
--- NOTE | 2020-02-20 11:29 | History and Physical ---
History of Present Illness General Date patient seen: Feb 20, 2020 Reason for Hospitalization: Dyspnea/Respdistress Present Illness Allergies: Coded Allergies: NO KNOWN ALLERGIES (Unverified Allergy, Unknown, 10/15/15) COVID-19 Screening Contact w/high risk pt: No Recent Travel to affected area: No Experienced COVID-19 symptoms?: Yes COVID-19 symptoms experienced: Fever (T>100.4F or >38C), Shortness of Breath Medication History Scheduled Amlodipine Besylate* (Amlodipine Besylate*), 10 MG ORAL DAILY, (Reported) Atorvastatin Calcium* (Lipitor*), 10 MG ORAL BEDTIME, (Reported) Docusate Sodium (Dok), 100 MG PO BID, (Reported) Epoetin Jose De Jesus (Epogen), 20,000 UNIT SUBQ mon/wed/fri, (Reported) Ertapenem (Invanz), 0.5 GM IM DAILY, (Reported) Ertapenem (Invanz), 1 GM IM DAILY, (Reported) Gabapentin* (Gabapentin*), 300 MG ORAL THREE TIMES A DAY, (Reported) Hydralazine Hcl* (Hydralazine Hcl*), 25 MG ORAL EVERY 4 HOURS, (Reported) Insulin Aspart (Novolog Flexpen), 1 UNITS SUBQ AC+HS, (Reported) Insulin Detemir (Levemir Flexpen), 8 SUBQ DAILY, (Reported) Pantoprazole* (Pantoprazole*), 40 MG ORAL DAILY, (Reported) Phenazopyridine Hcl* (Pyridium*), 100 MG ORAL THREE TIMES A DAY, (Reported) Polyethylene Glycol 3350* (Miralax*), 17 GM ORAL DAILY, (Reported) Pyridoxine Hcl* (Vitamin B-6*), 50 MG ORAL DAILY, (Reported) Sitagliptin* (Januvia*), 25 MG ORAL DAILY, (Reported) Thiamine Hcl* (Vitamin B-1*), 100 MG ORAL DAILY, (Reported) Scheduled PRN Acetaminophen (Tylenol), 650 MG ORAL Q4HR PRN for Mild Pain/Temp > 100.5, ( Reported) Cefepime Hcl/D5w (Cefepime-Dextrose 2 Gm/50 Ml), 500 MG IVPB Q24H PRN for Per rx protocol, (Reported) Clonidine Hcl* (Catapres*), 0.1 MG ORAL EVERY 4 HOURS PRN for For High Blood Pressure, (Reported) Diphenhydramine Hcl* (Benadryl*), 50 MG ORAL Q6H PRN for Itching, (Reported) Hydromorphone HCl/Pf (Hydromorphone 1 mg/ml Vial), 0.5 MG IJ Q6HR PRN for For Pain, (Reported) Ipratropium [place] 0.5MG/2.5ML (Ipratropium [place] 0.5MG/2.5ML), 0.5 MG HHN Q4H PRN for Shortness of Breath, (Reported) Lorazepam* (Lorazepam*), 1 MG ORAL Q6HR PRN for For Anxiety, (Reported) Polyethylene Glycol 3350* (Miralax*), 17 GM ORAL DAILY PRN for Constipation, ( Reported) Zolpidem Tartrate* (Zolpidem Tartrate*), 5 MG ORAL BEDTIME PRN for Insomnia, ( Reported) Miscellaneous Medications Unable to Obtain Medications (Unable To Obtain Meds), (Reported) Patient History Healthcare decision maker Resuscitation status Advanced Directive on File Past Medical/Surgical History Past Medical/Surgical History: (1) Lumbar radiculopathy (2) Morbid obesity (3) Coronary artery disease (4) Blindness of both eyes (5) Intractable back pain (6) Decubital ulcer (7) Anemia (8) Diabetes Review of Systems All Other Systems: negative except mentioned in HPI Physical Exam General Appearance: morbidly obese Lines, tubes and drains: peripheral, central line HEENT: normocephalic, atraumatic Neck: non-tender, normal alignment Respiratory/Chest: chest wall non-tender, lungs clear Breasts: no masses Cardiovascular/Chest: normal peripheral pulses Abdomen: normal bowel sounds Genitourinary/Rectal: normal genital exam Extremities: normal range of motion Last 24 Hour Vital Signs Date Time Temp Pulse Resp B/P (MAP) Pulse Ox O2 Delivery O2 Flow Rate FiO2 02/20/20 09:51 98 19 100 02/20/20 09:32 102.6 16 199/111 82 Room Air 02/20/20 09:31 86 16 02/20/20 08:08 102.6 82 24 199/111 (140) 82 Room Air Laboratory Tests Test 02/20/20 08:20 02/20/20 09:07 02/20/20 09:15 White Blood Count 8.1 K/UL (4.8-10.8) Red Blood Count 4.61 M/UL (4.20-5.40) Hemoglobin 10.9 G/DL (12.0-16.0) L Hematocrit 35.5 % (37.0-47.0) L Mean Corpuscular Volume 77 FL (80-99) L Mean Corpuscular Hemoglobin 23.7 PG (27.0-31.0) L Mean Corpuscular Hemoglobin Concent 30.8 G/DL (32.0-36.0) L Red Cell Distribution Width 16.3 % (11.6-14.8) H Platelet Count 111 K/UL (150-450) L Mean Platelet Volume 7.4 FL (6.5-10.1) Neutrophils (%) (Auto) 59.4 % (45.0-75.0) Lymphocytes (%) (Auto) 15.0 % (20.0-45.0) L Monocytes (%) (Auto) 18.8 % (1.0-10.0) H Eosinophils (%) (Auto) 4.4 % (0.0-3.0) H Basophils (%) (Auto) 2.4 % (0.0-2.0) H Prothrombin Time 12.0 SEC (9.30-11.50) H Prothromb Time International Ratio 1.1 (0.9-1.1) Activated Partial Thromboplast Time 32 SEC (23-33) Sodium Level 135 MMOL/L (136-145) L Potassium Level 5.3 MMOL/L (3.5-5.1) H Chloride Level 95 MMOL/L (98-107) L Carbon Dioxide Level 33 MMOL/L (21-32) H Anion Gap 7 mmol/L (5-15) Blood Urea Nitrogen 34 mg/dL (7-18) H Creatinine 5.1 MG/DL (0.55-1.30) H Estimat Glomerular Filtration Rate 10.4 mL/min (>60) Glucose Level 102 MG/DL (74-106) Lactic Acid Level 0.50 mmol/L (0.4-2.0) Calcium Level 9.2 MG/DL (8.5-10.1) Magnesium Level 2.1 MG/DL (1.8-2.4) Total Bilirubin 0.8 MG/DL (0.2-1.0) Aspartate Amino Transf (AST/SGOT) 24 U/L (15-37) Alanine Aminotransferase (ALT/SGPT) 22 U/L (12-78) Alkaline Phosphatase 346 U/L (46-116) H Total Creatine Kinase 52 U/L (26-308) Creatine Kinase MB 0.9 NG/ML (0.0-3.6) Creatine Kinase MB Relative Index 1.7 Troponin I 0.005 ng/mL (0.000-0.056) C-Reactive Protein, Quantitative 1.2 mg/dL (0.00-0.90) H Total Protein 8.4 G/DL (6.4-8.2) H Albumin 4.0 G/DL (3.4-5.0) Globulin 4.4 g/dL Albumin/Globulin Ratio 0.9 (1.0-2.7) L Urine Color Brown Urine Appearance Turbid Urine pH 8 (4.5-8.0) Urine Specific [place] 1.015 (1.005-1.035) Urine Protein 4+ (NEGATIVE) H Urine Glucose (UA) Negative (NEGATIVE) Urine Ketones 1+ (NEGATIVE) H Urine Blood 4+ (NEGATIVE) H Urine Nitrite Positive (NEGATIVE) H Urine Bilirubin Negative (NEGATIVE) Urine Urobilinogen Normal MG/DL (0.0-1.0) Urine Leukocyte Esterase 3+ (NEGATIVE) H Urine RBC Tntc /HPF (0 - 2) H Urine WBC Tntc /HPF (0 - 2) H Urine Squamous Epithelial Cells Moderate /LPF (NONE/OCC) H Urine Bacteria Many /HPF (NONE) H Arterial Blood pH 7.501 (7.350-7.450) Arterial Blood Partial Pressure CO2 43.9 mmHg (35.0-45.0) Arterial Blood Partial Pressure O2 289.9 mmHg (75.0-100.0) H Arterial Blood HCO3 33.5 mmol/L (22.0-26.0) H Arterial Blood Oxygen Saturation 99.2 % (95-100) Arterial Blood Base Excess 9.4 (-2-2) *H Lester Test Positive Microbiology Date/Time Source Procedure Growth Status 02/20/20 09:35 Nasal Nares - Final Complete 02/20/20 09:35 Nasal Nares - Final Complete 02/20/20 08:20 Rectum Received Height (Feet): 5 Height (Inches): 7.00 Weight (Pounds): 170 Medications Current Medications Medications (Trade) Dose Ordered Sig/Josi Route PRN Reason Start Time Stop Time Status Last Admin Dose Admin Acetaminophen (Tylenol) 650 mg Q4H PRN ORAL fever 02/20/20 09:00 03/21/20 08:59 Albuterol/ Ipratropium (Albuterol/ Ipratropium) 3 ml Q4H PRN HHN Shortness of Breath 02/20/20 09:00 02/25/20 08:59 Amikacin Sulfate 500 mg/Sodium Chloride 112 ml @ 112 mls/hr ONCE ONCE IV 02/20/20 15:00 02/20/20 15:59 Enalaprilat (Vasotec) 2.5 mg Q4H PRN IV sbp more than 200mmHg 02/20/20 09:00 03/21/20 08:59 Ertapenem 0.5 gm/ Sodium Chloride 55 ml @ 110 mls/hr Q24H IV 02/20/20 20:00 02/25/20 19:59 Heparin Sodium (Porcine) (Heparin 5000 units/ml) 5,000 units EVERY 12 HOURS SUBQ 02/20/20 21:00 04/05/20 20:59 Hydralazine HCl (Apresoline) 20 mg Q4H PRN IV sbp more than 160mmHg 02/20/20 11:00 05/20/20 10:59 Hydralazine HCl (Apresoline) 25 mg EVERY 4 HOURS ORAL 02/20/20 13:00 05/20/20 12:59 Insulin Aspart (NovoLOG) BEFORE MEALS AND HS SUBQ 02/20/20 12:30 05/20/20 12:29 Labetalol HCl (Normodyne) 20 mg EVERY HOUR PRN IV sbp more than 180mmHg 02/20/20 11:00 03/21/20 10:59 Lorazepam (Ativan 2mg/ml 1ml) 2 mg Q2H PRN IV For Anxiety 02/20/20 09:00 02/27/20 08:59 Morphine Sulfate (Morphine Sulfate) 4 mg Q4H PRN IVP Severe Pain (Pain Scale 7-10) 02/20/20 09:00 02/27/20 08:59 Ondansetron HCl (Zofran) 4 mg Q6H PRN IVP Nausea & Vomiting 02/20/20 09:00 03/21/20 08:59 Pantoprazole (Protonix) 40 mg DAILY IVP 02/20/20 12:00 03/21/20 11:59 Sodium Chloride 1,000 ml @ 100 mls/hr Q10H IVLG 02/20/20 11:00 03/21/20 10:59 Vancomycin HCl (Vanco rx to dose) 1 ea DAILY PRN MISC . 02/20/20 11:15 03/21/20 11:14 Vancomycin/Sodium Chloride 275 ml @ 137.5 mls/ hr ONCE ONCE IVPB 02/20/20 12:30 02/20/20 14:29 Assessment/Plan Problem List: (1) Sepsis ICD Codes: A41.9 - Sepsis, unspecified organism SNOMED: 37411229 (2) Acute respiratory failure ICD Codes: J96.00 - Acute respiratory failure, unspecified whether with hypoxia or hypercapnia SNOMED: 23243830 (3) ARDS (adult respiratory distress syndrome) ICD Codes: J80 - Acute respiratory distress syndrome SNOMED: 85616762, 95391611 (4) Accelerated hypertension ICD Codes: I10 - Essential (primary) hypertension SNOMED: 96772505 (5) Diabetes ICD Codes: E11.9 - Type 2 diabetes mellitus without complications SNOMED: 50358479 (6) Decubital ulcer ICD Codes: L89.90 - Pressure ulcer of unspecified site, unspecified stage SNOMED: 710376520 (7) Patient is Christianity ICD Codes: Z78.9 - Other specified health status SNOMED: 87348248 (8) ESRD (end stage renal disease) on dialysis ICD Codes: N18.6 - End stage renal disease; Z99.2 - Dependence on renal dialysis SNOMED: 255948598 Respiratory: monitor respiratory rate, adjust FIO2, CXR Cardiac: continue to monitor HR/BP Renal: F/U I&O, check electrolytes Infectious Disease: check cultures, add antibiotics Gastrointestinal: start feedings Endocrine: monitor blood sugar, continue sliding scale insulin Hematologic: monitor H/H Neurologic: PRN Ativan, PRN Morphine Prophylaxis: Protonix, Heparin Disposition: keep in ICU Discussed with: nurses, consultants, caser shoe [employer] Meghana Murillo MD Feb 20, 2020 11:29
[2020-02-20] MEDS ORDERED: Pantoprazole Inj IVP SCH (12:00)
--- NOTE | 2020-02-20 12:13 | Diagnostic Imaging Report ---
Indication: Chest pain, shortness of breath Technique: XRAY Chest 1v Comparison: 11/12/2019 Findings: Cardiomegaly is stable. Left-sided dual-lead pacemaker unchanged in position with lead tip projecting over the right atrium and ventricle. Endotracheal tube tip at the level of the clavicles, 4.8 cm above the gale. There are patchy bilateral airspace opacities, right greater than left. There is central pulmonary vascular prominence. There is no radiographically appreciable pleural effusion or pneumothorax. No acute osseous abnormality. Impression: * And tracheal tube tip at the level of the clavicles, approximately 4.8 cm above the gale. * Cardiomegaly and indwelling pacemaker. * Prominence of the central pulmonary vasculature with subtle patchy bilateral airspace opacities. Although findings may be related to patchy areas of developing alveolar edema possibility of atypical or viral infection is not excluded. Correlation with clinical findings and follow-up recommended. Findings discussed with Dr. Joy of the emergency department.
--- NOTE | 2020-02-20 12:16 | Consultation ---
Consult Note Consult Note I was asked to evaluate the patient at the request of Dr Roderick Henning for dialysis management Patient is very well-known to me from her previous admissions Patient was recently discharged from [facility] Emergency room note: This patient presents from a group home facility. History is obtained by EMS and the patient's medical record. Per EMS the patient was febrile, hypoxemic and altered on their arrival. The patient has a history of diabetes, end-stage renal disease, hypertension and CHF. Per EMS the patient's O2 saturations on arrival were 84% on nasal cannula. She was placed on a nonrebreather mask and did have increase in her O2 saturation to 100%. There is no other history of present illness available. NO KNOWN ALLERGIES (Unverified Allergy, Unknown, 10/15/15) COVID-19 Screening Contact w/high risk pt: No Recent Travel to affected area: No Experienced COVID-19 symptoms?: Yes COVID-19 symptoms experienced: Fever (T>100.4F or >38C), Shortness of Breath Past Medical History: see triage record, DM, HTN, OR, CAD, CHF, GERD Social History: Denies: smoking, alcohol use, drug use Reviewed Nursing Documentation: PMH: Agreed; PSxH: Agreed Hx Cardiac Problems: Yes Hx Hypertension: Yes Hx Asthma: Yes Hx COPD: Yes Hx Diabetes: Yes Hx Gastrointestinal Problems: No Hx Dialysis: Yes - Hx Neurological Problems: Yes Hx Peripheral Neuropathy: Yes - secondary to DM Hx Memory Loss: Yes Hx Tremors: Yes Hx Vertigo: Yes Hx Dizziness: Yes Hx Syncope: Yes Hx Headaches: Yes Hx Weakness: Yes Hx Fatigue: Yes data reviewed Patient in ICU intubated . Assessment/Plan Admitting diagnosis ARDS (adult respiratory distress syndrome) Fever Sepsis UTI (urinary tract infection) Respiratory failure Thrombocytopenia Lymphopenia End stage renal disease on dialysis. Has a right upper arm dialysis fistula as Acces . Getting dialysis Sunday. morbid obesity Anemia / Jehova's witness CAD previous stent HTN- hypertensive urgency upon arrival to [facility]. s/p AVG DM 2 bilateral eye blindness h/o CHF Pacemaker Plan: Per ID and pulmonary Dialysis today with ultrafiltration and low potassium bath EPO, thiamin and b6 via NG tube Phos binders diet to renal , medium CHO per consultants Bryan Hunter MD Feb 20, 2020 12:16
--- NOTE | 2020-02-20 12:25 | NUR ---
NURSE NOTES: NG Tube placed in Right Nares at 64cm. FELICITA ordered. Addendum: 02/20/20 at 1356 by Dianne Allison RN NURSE NOTES: NG Tube placed in Right Nares at 64cm. FELICITA ordered. While inserting NG Tube patient withdrew from pain, patient initially had no response to pain. Will continue to monitor.
[2020-02-20] MEDS ORDERED: Vancomycin 1.5gm/NS Premix IVPB ONE (12:30)
[2020-02-20] MEDS: NovoLOG Insulin Flexpen SUBQ SCH ×3 (12:30→21:00)
--- NOTE | 2020-02-20 12:45 | Consultation ---
History of Present Illness General Date patient seen: Feb 20, 2020 Time patient seen: 12:44 Chief Complaint: Dyspnea/Respdistress Referring physician: PCP Reason for Consultation: fever , Sepsis Present Illness HPI HISTORY OF PRESENT ILLNESS: The patient is a 64-year-old female who was recenlty admitted to this medical center , now was re=admitted for fever and SOB , pt's roomate was diangesed with COVID-19 recently in [facility] Infectious Disease consultation has been requested for further evaluation of the patient and antibiotic management. The patient is intubated and much of the information is gathered through the chart and speaking to staff. Not clear if pt was on Rx of recurrent positive blood culture for coag-negative staph at SNF or HD Manager Insurance Allergies: Coded Allergies: NO KNOWN ALLERGIES (Unverified Allergy, Unknown, 10/15/15) Medication History Scheduled Amlodipine Besylate* (Amlodipine Besylate*), 10 MG ORAL DAILY, (Reported) Atorvastatin Calcium* (Lipitor*), 10 MG ORAL BEDTIME, (Reported) Docusate Sodium (Dok), 100 MG PO BID, (Reported) Epoetin Jose De Jesus (Epogen), 20,000 UNIT SUBQ mon/wed/fri, (Reported) Ertapenem (Invanz), 0.5 GM IM DAILY, (Reported) Ertapenem (Invanz), 1 GM IM DAILY, (Reported) Gabapentin* (Gabapentin*), 300 MG ORAL THREE TIMES A DAY, (Reported) Hydralazine Hcl* (Hydralazine Hcl*), 25 MG ORAL EVERY 4 HOURS, (Reported) Insulin Aspart (Novolog Flexpen), 1 UNITS SUBQ AC+HS, (Reported) Insulin Detemir (Levemir Flexpen), 8 SUBQ DAILY, (Reported) Pantoprazole* (Pantoprazole*), 40 MG ORAL DAILY, (Reported) Phenazopyridine Hcl* (Pyridium*), 100 MG ORAL THREE TIMES A DAY, (Reported) Polyethylene Glycol 3350* (Miralax*), 17 GM ORAL DAILY, (Reported) Pyridoxine Hcl* (Vitamin B-6*), 50 MG ORAL DAILY, (Reported) Sitagliptin* (Januvia*), 25 MG ORAL DAILY, (Reported) Thiamine Hcl* (Vitamin B-1*), 100 MG ORAL DAILY, (Reported) Scheduled PRN Acetaminophen (Tylenol), 650 MG ORAL Q4HR PRN for Mild Pain/Temp > 100.5, ( Reported) Cefepime Hcl/D5w (Cefepime-Dextrose 2 Gm/50 Ml), 500 MG IVPB Q24H PRN for Per rx protocol, (Reported) Clonidine Hcl* (Catapres*), 0.1 MG ORAL EVERY 4 HOURS PRN for For High Blood Pressure, (Reported) Diphenhydramine Hcl* (Benadryl*), 50 MG ORAL Q6H PRN for Itching, (Reported) Hydromorphone HCl/Pf (Hydromorphone 1 mg/ml Vial), 0.5 MG IJ Q6HR PRN for For Pain, (Reported) Ipratropium [place] 0.5MG/2.5ML (Ipratropium [place] 0.5MG/2.5ML), 0.5 MG HHN Q4H PRN for Shortness of Breath, (Reported) Lorazepam* (Lorazepam*), 1 MG ORAL Q6HR PRN for For Anxiety, (Reported) Polyethylene Glycol 3350* (Miralax*), 17 GM ORAL DAILY PRN for Constipation, ( Reported) Zolpidem Tartrate* (Zolpidem Tartrate*), 5 MG ORAL BEDTIME PRN for Insomnia, ( Reported) Miscellaneous Medications Unable to Obtain Medications (Unable To Obtain Meds), (Reported) Patient History Healthcare decision maker Resuscitation status Full Code Advanced Directive on File Physical Exam Lines, tubes and drains: endotracheal tube HEENT: atraumatic Neck: supple Respiratory/Chest: no respiratory distress Cardiovascular/Chest: regular rhythm Abdomen: soft Last 24 Hour Vital Signs Date Time Temp Pulse Resp B/P (MAP) Pulse Ox O2 Delivery O2 Flow Rate FiO2 02/20/20 12:39 68 16 50 02/20/20 12:00 Endotracheal Tube 02/20/20 12:00 99.5 65 12 155/65 (95) 100 02/20/20 11:51 68 17 100 Mechanical Ventilator 50 02/20/20 11:47 71 16 50 02/20/20 11:33 Endotrachael Tube 02/20/20 11:15 101.0 87 19 181/98 100 Mechanical Ventilator 100 02/20/20 09:51 98 19 100 02/20/20 09:32 102.6 16 199/111 82 Room Air 02/20/20 09:31 86 16 02/20/20 08:08 102.6 82 24 199/111 (140) 82 Room Air Laboratory Tests Test 02/20/20 08:20 02/20/20 09:07 02/20/20 09:15 White Blood Count 8.1 K/UL (4.8-10.8) Red Blood Count 4.61 M/UL (4.20-5.40) Hemoglobin 10.9 G/DL (12.0-16.0) L Hematocrit 35.5 % (37.0-47.0) L Mean Corpuscular Volume 77 FL (80-99) L Mean Corpuscular Hemoglobin 23.7 PG (27.0-31.0) L Mean Corpuscular Hemoglobin Concent 30.8 G/DL (32.0-36.0) L Red Cell Distribution Width 16.3 % (11.6-14.8) H Platelet Count 111 K/UL (150-450) L Mean Platelet Volume 7.4 FL (6.5-10.1) Neutrophils (%) (Auto) 59.4 % (45.0-75.0) Lymphocytes (%) (Auto) 15.0 % (20.0-45.0) L Monocytes (%) (Auto) 18.8 % (1.0-10.0) H Eosinophils (%) (Auto) 4.4 % (0.0-3.0) H Basophils (%) (Auto) 2.4 % (0.0-2.0) H Prothrombin Time 12.0 SEC (9.30-11.50) H Prothromb Time International Ratio 1.1 (0.9-1.1) Activated Partial Thromboplast Time 32 SEC (23-33) Sodium Level 135 MMOL/L (136-145) L Potassium Level 5.3 MMOL/L (3.5-5.1) H Chloride Level 95 MMOL/L (98-107) L Carbon Dioxide Level 33 MMOL/L (21-32) H Anion Gap 7 mmol/L (5-15) Blood Urea Nitrogen 34 mg/dL (7-18) H Creatinine 5.1 MG/DL (0.55-1.30) H Estimat Glomerular Filtration Rate 10.4 mL/min (>60) Glucose Level 102 MG/DL (74-106) Lactic Acid Level 0.50 mmol/L (0.4-2.0) Calcium Level 9.2 MG/DL (8.5-10.1) Magnesium Level 2.1 MG/DL (1.8-2.4) Total Bilirubin 0.8 MG/DL (0.2-1.0) Aspartate Amino Transf (AST/SGOT) 24 U/L (15-37) Alanine Aminotransferase (ALT/SGPT) 22 U/L (12-78) Alkaline Phosphatase 346 U/L (46-116) H Total Creatine Kinase 52 U/L (26-308) Creatine Kinase MB 0.9 NG/ML (0.0-3.6) Creatine Kinase MB Relative Index 1.7 Troponin I 0.005 ng/mL (0.000-0.056) C-Reactive Protein, Quantitative 1.2 mg/dL (0.00-0.90) H Total Protein 8.4 G/DL (6.4-8.2) H Albumin 4.0 G/DL (3.4-5.0) Globulin 4.4 g/dL Albumin/Globulin Ratio 0.9 (1.0-2.7) L Urine Color Brown Urine Appearance Turbid Urine pH 8 (4.5-8.0) Urine Specific [place] 1.015 (1.005-1.035) Urine Protein 4+ (NEGATIVE) H Urine Glucose (UA) Negative (NEGATIVE) Urine Ketones 1+ (NEGATIVE) H Urine Blood 4+ (NEGATIVE) H Urine Nitrite Positive (NEGATIVE) H Urine Bilirubin Negative (NEGATIVE) Urine Urobilinogen Normal MG/DL (0.0-1.0) Urine Leukocyte Esterase 3+ (NEGATIVE) H Urine RBC Tntc /HPF (0 - 2) H Urine WBC Tntc /HPF (0 - 2) H Urine Squamous Epithelial Cells Moderate /LPF (NONE/OCC) H Urine Bacteria Many /HPF (NONE) H Arterial Blood pH 7.501 (7.350-7.450) Arterial Blood Partial Pressure CO2 43.9 mmHg (35.0-45.0) Arterial Blood Partial Pressure O2 289.9 mmHg (75.0-100.0) H Arterial Blood HCO3 33.5 mmol/L (22.0-26.0) H Arterial Blood Oxygen Saturation 99.2 % (95-100) Arterial Blood Base Excess 9.4 (-2-2) *H Lester Test Positive Microbiology Date/Time Source Procedure Growth Status 02/20/20 09:35 Nasal Nares - Final Complete 02/20/20 09:35 Nasal Nares - Final Complete 02/20/20 08:20 Rectum Received Height (Feet): 5 Height (Inches): 7.00 Weight (Pounds): 255 Medications Current Medications Medications (Trade) Dose Ordered Sig/Josi Route PRN Reason Start Time Stop Time Status Last Admin Dose Admin Acetaminophen (Tylenol) 650 mg Q4H PRN ORAL fever 02/20/20 09:00 03/21/20 08:59 Albuterol/ Ipratropium (Albuterol/ Ipratropium) 3 ml Q4H PRN HHN Shortness of Breath 02/20/20 09:00 02/25/20 08:59 Amikacin Sulfate 500 mg/Sodium Chloride 112 ml @ 112 mls/hr ONCE ONCE IV 02/20/20 15:00 02/20/20 15:59 Amlodipine Besylate (Norvasc) 10 mg DAILY NG 02/21/20 09:00 03/22/20 08:59 Atorvastatin Calcium (Lipitor) 10 mg BEDTIME NG 02/20/20 21:00 05/20/20 20:59 Dextrose/Sodium Chloride 1,000 ml @ 50 mls/hr Q20H IV 02/20/20 12:30 03/21/20 12:29 Epoetin Jose De Jesus (Epoetin Jose De Jesus(ESRD on dialysis)) 10,000 unit SUN-SUN-SUN SUBQ 02/20/20 21:00 05/20/20 20:59 Ertapenem 0.5 gm/ Sodium Chloride 55 ml @ 110 mls/hr Q24H IV 02/20/20 20:00 02/25/20 19:59 Heparin Sodium (Porcine) (Heparin 5000 units/ml) 5,000 units EVERY 12 HOURS SUBQ 02/20/20 21:00 04/05/20 20:59 Hydralazine HCl (Apresoline) 10 mg Q4H PRN IV Blood pressure over 160 systol 02/20/20 12:45 05/20/20 12:44 Insulin Aspart (NovoLOG) BEFORE MEALS AND HS SUBQ 02/20/20 12:30 05/20/20 12:29 Labetalol HCl (Normodyne) 20 mg EVERY HOUR PRN IV sbp more than 180mmHg 02/20/20 11:00 03/21/20 10:59 Lorazepam (Ativan 2mg/ml 1ml) 2 mg Q2H PRN IV For Anxiety 02/20/20 09:00 02/27/20 08:59 Morphine Sulfate (Morphine Sulfate) 4 mg Q4H PRN IVP Severe Pain (Pain Scale 7-10) 02/20/20 09:00 02/27/20 08:59 Ondansetron HCl (Zofran) 4 mg Q6H PRN IVP Nausea & Vomiting 02/20/20 09:00 03/21/20 08:59 Pantoprazole (Protonix) 40 mg Q12HR IVP 02/20/20 21:00 03/21/20 11:59 Pyridoxine HCl (Vitamin B6) 50 mg DAILY NG 02/21/20 09:00 03/22/20 08:59 Thiamine HCl (Vitamin B1) 100 mg DAILY NG 02/21/20 09:00 03/22/20 08:59 Vancomycin HCl (Vanco rx to dose) 1 ea DAILY PRN MISC . 02/20/20 11:15 03/21/20 11:14 Vancomycin/Sodium Chloride 275 ml @ 137.5 mls/ hr ONCE ONCE IVPB 02/20/20 12:30 02/20/20 14:29 Assessment/Plan Assessment/Plan: ASSESSMENT: The patient is a 64-year-old female with Probable COVID-19 ( hx of close contact to COVID-19 at [facility] ) Pneum Fever Hx of positive blood culture CONS ,persistent 02/04BCx: CoNS 01/30 Bc: (1/2)CoNS and Citrobacter 3/ , 3 Bc: CoNS - (outside facility, # of the +ve cultures are not clear) A 2D echo from outside facility did not show any evidence of vegetation as per Carido pt is high risk for CLAY: ( last admission ) Diabetes. CHF. ESRD. Hypertension. Obesity. PLAN: cont Amikacin, Ertap #1 continue the patient on vancomycin, day # ? ( will Rx for probable SBE) Monitor CBC. Monitor BMP. Monitor cultures (blood, Sp ) COVID-19 Airborne. Contact plus Isolation Thank you , we will Mic Taylor MD Feb 20, 2020 12:45
[2020-02-20] MEDS: D5NS 1,000 ML IV SCH (12:47)
[2020-02-20] MEDS ORDERED: HydrALAZINE 25mg tab NG PRN (13:00)
[2020-02-20] MEDS ORDERED: HydrALAZINE 25mg tab ORAL SCH (13:00)
--- NOTE | 2020-02-20 13:53 | Diagnostic Imaging Report ---
Indication: NG tube placement Technique: XRAY Abdomen 1v Comparison: None Findings: Interval placement of NG tube, tip projects in the proximal stomach. Bowel gas pattern is nonobstructive. Megaly, pacemaker wires and patchy bilateral airspace disease partially visualized. No acute osseous abnormality. Impression: Satisfactory positioning of NG tube.
[2020-02-20] MEDS ORDERED: Etomidate 40mg/20ml Inj IV ONE (14:01)
[2020-02-20] MEDS ORDERED: Amikacin 500 MG in NS 110 ML IV ONE (15:00)
[2020-02-20] MEDS ORDERED: Amikacin 500 MG in NS 110 ML IV SCH (16:00)
--- NOTE | 2020-02-20 16:00 | History and Physical Report ---
DATE OF ADMISSION: 02/20/2020 TIME SEEN: 12 noon. CONSULTANTS: 1. Meghana Murillo M.D. 2. Bryan Hunter M.D. 3. Mic Long M.D. CHIEF COMPLAINT: Respiratory failure. BRIEF HISTORY: This is a 64-year-old female from [facility], who presents with respiratory failure, fever, hypoxic, came to [place], went into respiratory failure, was intubated and admitted to ICU. Currently intubated, sedated, lethargic in the ICU. Nurse working on her. Nonverbal. REVIEW OF SYSTEMS: Unavailable. PAST MEDICAL HISTORY: Recent respiratory failure, ESRD, obesity, hypertension, diabetes, and anemia. PAST SURGICAL HISTORY: Shunt. ALLERGIES: Denies. MEDICATIONS: Include heparin, ertapenem, amikacin, hydralazine, insulin, pantoprazole, labetalol, albuterol, morphine, lorazepam, and enalapril. SOCIAL HISTORY: No smoking. No alcohol. No intravenous drug abuse. FAMILY HISTORY: Noncontributory. PHYSICAL EXAMINATION: GENERAL: Intubated, sedated, and lethargic in ICU, nonverbal. VITAL SIGNS: Show temperature is 99, pulse 65, respirations 12, and blood pressure 155/65. CARDIOVASCULAR: No murmur. LUNGS: Poor air exchange. Physical exam is deferred to a later time. The patient is being worked on by nurse. LABORATORY AND DIAGNOSTIC STUDIES: Labs at this time show hemoglobin and hematocrit 10/35, platelets 111,000. BMP shows sodium 135, potassium 5.3, chloride 95, CO2 33, BUN and creatinine 34/5.1, and glucose 102. Troponin 0.005. INR is 1.1. PTT is 32. Urinalysis show 3+ leukocyte esterase. ASSESSMENT: 1. Respiratory failure. 2. UTI. 3. Sepsis. 4. ESRD. 5. Obesity. 6. Hypertension. 7. Diabetes. 8. Anemia. PLAN: 1. Vent per Pulmonary. 2. Antibiotics per Infectious Disease. 3. Blood pressure and blood sugar control. 4. Dietary followup. 5. Resume home medications. 6. Dialysis p.r.n. 7. Dr. Murillo will attend the patient. In the meantime, we will continue to follow the patient. Roderick Henning D.O. DR: JAYCOB JOB#: [id number] CC:
[2020-02-20] MEDS: Labetalol 5mg/ml 20ml vial IV PRN (16:16)
--- NOTE | 2020-02-20 17:01 | NUR ---
NURSE NOTES: Dialysis nurse came for hemodialysis treatment to patient. Will continue to monitor.
--- NOTE | 2020-02-20 17:03 | NUR ---
NURSE NOTES: NGT feeding of Nepro started on patient at 10cc/hr as ordered. Will continue to monitor.
--- NOTE | 2020-02-20 17:10 | NUR ---
NURSE NOTES: Late note: At 1600 patient's blood pressure was 198/72, on reassessment blood pressure read 206/84. Prescribed PRN Labetalol 20mg was given IV over 2 minutes IV push. At 1700 blood pressure read 154/66. Will continue to monitor.
--- NOTE | 2020-02-20 19:19 | NUR ---
HAND-OFF: Report given to Kenton SLOAN. Patient is currently receiving Dialysis, patient is afebrile latest temperature was 98.5 degrees Fahrenheit via axilla.
--- NOTE | 2020-02-20 19:50 | NUR ---
NURSE NOTES: LE: FINISHED DIALYSIS, 4500ML WAS REMOVED.
--- NOTE | 2020-02-20 20:00 | NUR ---
NURSE NOTES: LE: PATIENT NO RESPONSIVE TO VERBAL STIMULI, ON ETT TO VENT AC 16/TV600/FIO2 50%, O2 SATURATION 100% NOTED, HEART RATE 70'S/MIN, 1 ST DEGREE A-BLOCK AND PVC'S, A-PACED NOTED, ABDOMEN SOFT, ROUND, NON TENDER, NO BM STATUS, NGT TO RIGHT NARES, INTACT AND PATENT, ONGOING NEPRO AT 10ML/HR, NO RESIDUE NOTED, KEPT HOB 30 DEGREES AND ASPIRATION PRECAUTION, F/C INTACT AND PATENT, YELLOW COLOR URINE OUTED, OLIGURIA NOTED, AV SHUNT TO RIGHT UPPER ARM, BRUIT AND THRILL NOTED, PPL TO LEFT UPPER ARM, INTACT AND PATENT, ONGOING D5W AT 50ML/HR, KEPT AIRBORNE, DROPLET AND CONTACT ISOLATION PER PROTOCOLS, MADE LOWER BED POSITION, ON BED ALARM AND LOCKED, PROVIDED CALL LIGHT WITHIN REACH, WILL CONTINUE TO MONITOR. Addendum: 02/21/20 at 0714 by MARLO GARCIA RN NURSE NOTES: LE: PATIENT NO RESPONSIVE TO VERBAL STIMULI, ON ETT TO VENT AC 16/TV600/FIO2 50%, O2 SATURATION 100% NOTED, PACE MAKER TO LEFT CHEST, HEART RATE 70'S/MIN, 1 ST DEGREE A-BLOCK AND PVC'S, A-PACED NOTED, ABDOMEN SOFT, ROUND, NON TENDER, NO BM STATUS, NGT TO RIGHT NARES, INTACT AND PATENT, ONGOING NEPRO AT 10ML/HR, NO RESIDUE NOTED, KEPT HOB 30 DEGREES AND ASPIRATION PRECAUTION, F/C INTACT AND PATENT, YELLOW COLOR URINE OUTED, OLIGURIA NOTED, AV SHUNT TO RIGHT UPPER ARM, BRUIT AND THRILL NOTED, PPL TO LEFT UPPER ARM, INTACT AND PATENT, ONGOING D5W NS AT 50ML/HR, KEPT AIRBORNE, DROPLET AND CONTACT ISOLATION PER PROTOCOLS, MADE LOWER BED POSITION, ON BED ALARM AND LOCKED, PROVIDED CALL LIGHT WITHIN REACH, WILL CONTINUE TO MONITOR.
[2020-02-20] MEDS: Ertapenem 500mg ivpb (q24h) IV SCH ×2 (20:15)
[2020-02-20] MEDS: Epoetin Alfa-EPBX(ESRD on dialysis)10,000 unit/ml vial SUBQ SCH (20:36)
[2020-02-20] MEDS: Pantoprazole Inj IVP SCH (20:36)
[2020-02-20] MEDS: Heparin 5000 units/ml inj SUBQ SCH (20:38)
--- NOTE | 2020-02-20 20:54 | NUR ---
NURSE NOTES: LE; GIVEN APRESOLINE 10MG VIA IVP SLOWLY PRN ORDER DUE TO BP 170/65MMHG, KEPT HOB OVER 30 DEGREES, WILL CONTINUE TO MONITOR.
--- NOTE | 2020-02-20 21:18 | NUR ---
NURSE NOTES: LE: BS 67MG/DL NOTED AT 4PM. GIVEN D50%W 1 AMP VIA IVP ORDER AT 2059PM. BS 178ML/DL NOTED AT THIS TIME.
--- NOTE | 2020-02-20 22:48 | NUR ---
NURSE NOTES: PATIENT ASLEEP STATUS, VSS BP 120/47MMHG, HR 74/MIN, O2 SATURATION 100% NOTED.
[2020-02-20] MEDS ORDERED: Vancomycin 1 GM in D5W 275 ML IV SCH (23:45)
[2020-02-21] VITALS (26 sets, daily range): BP systolic 106–188; BP diastolic 44–102
--- NOTE | 2020-02-21 00:20 | NUR ---
NURSE NOTES: LE: TEMP 100.0F NOTED AT MN, APPLIED COOLING MEASURE.
[2020-02-21] MEDS: Labetalol 5mg/ml 20ml vial IV PRN (01:25)
--- NOTE | 2020-02-21 02:00 | NUR ---
NURSE NOTES: LE GIVEN LABETALOL 20MG BY IVP PRN ORDER DUE TO BP 188/102 MMHG AT 0125AM. BP 137/55MMHG NOTED, PATIENT AWOKE, RESPONSE TO NAME, TRIED TO TOUCH ENDOTUBE, DID NOT FOLLOW COMMANDS, APPLIED 2 POINT SOFT RESTRAINTS, WILL CONTINUE TO MONITOR.
--- NOTE | 2020-02-21 04:20 | NUR ---
NURSE NOTES: PATIENT ASLEEP STATUS, NO PAIN OR SOB NOTED AT THIS TIME.
--- NOTE | 2020-02-21 06:07 | NUR ---
NURSE NOTES: MORNING CARE AND ORAL CARE WAS DONE, VSS AT THIS TIME.
[2020-02-21] MEDS: NovoLOG Insulin Flexpen SUBQ SCH ×4 (06:13→20:25)
--- NOTE | 2020-02-21 07:00 | NUR ---
RESPIRATORY NOTES: Received Patient on Vent settings VT 600, RR 16, 50% FIO2, PEEP +0. Patient is intubated with a 7.5 ETT at 25cm at the lip, secured with anchorfast. Patient tolerating vent settings well HR 60, SATS 98%. Vent plugged into red outlet. Alarms are on and audible. Will continue to monitor throughout the day.
--- NOTE | 2020-02-21 07:10 | NUR ---
HAND-OFF: Report given to NATHALIA MENDOZA.
[2020-02-21 07:22] LABS: PHOSPHORUS 4.8 MG/DL (2.5-4.9)
[2020-02-21 07:25] LABS: ALANINE AMINOTRANSFERASE 22 U/L (12-78); ALBUMIN 3.6 G/DL (3.4-5.0); ALBUMIN/GLOBULIN RATIO 0.9 (1.0-2.7); ALKALINE PHOSPHATASE 324 U/L (46-116); ANION GAP 9 mmol/L (5-15); ASPARTATE AMINO TRANSFERASE 29 U/L (15-37); BILIRUBIN,DIRECT 0.2 MG/DL (0.0-0.3); BILIRUBIN,TOTAL 1.1 MG/DL (0.2-1.0); BLOOD UREA NITROGEN 33 mg/dL (7-18); CALCIUM 9.3 MG/DL (8.5-10.1); CARBON DIOXIDE 33 MMOL/L (21-32); CHLORIDE 96 MMOL/L (98-107); CHOLESTEROL 167 MG/DL (< 200); HDL CHOLESTEROL 52 MG/DL (40-60); POTASSIUM 4.5 MMOL/L (3.5-5.1); SODIUM 138 MMOL/L (136-145); TRIGLYCERIDES 212 MG/DL (30-150)
--- NOTE | 2020-02-21 07:25 | NUR ---
NURSE NOTES: Received report from NATHALIA Fung. Visually checked patient outside the room, from the window. Patient is observed in bed, appears to be sleeping with eyes closed. Patient is orally intubated with vent settings AC 16, TV 600, FiO2 50%; patient is saturating 100% noted on the monitor. NGT observed on the right nares, with TF infusing. HOB elevated. Tyler catheter noted. Bed is locked, alarmed, and in lowest position, side rails up x3. Will continue plan of care and will continue to monitor patient.
--- NOTE | 2020-02-21 08:06 | NUR ---
RD ASSESSMENT & RECOMMENDATIONS SEE CARE ACTIVITY FOR COMPLETE ASSESSMENT DAILY ESTIMATED NEEDS: Needs based on obesity, critical care, HD 11-14kg actual body wt (114kg) kcals/kg 7796-2118 total kcals 1.5-2.0kg/IBW (66kg) g protein/kg 99-132 g total protein per MD, pt on HD NUTRITION DIAGNOSIS: * Swallowing difficulty R/T respiratory status as evidenced by pt orally intubated, on NGT feeding. * Altered nutrition related lab values R/T ESRD as evidenced by elev creat (5.0), elev BNP (15443). CURRENT TF: Nepro @ 10ml/hr x 24 hrs ENTERAL NUTRITION RECOMMENDATIONS: Nepro @ 35ml/hr x 24 hrs + Prosource 1pkt TID to provide 840ml, 1512kcal, 68 +33g prot, 611ml free water * As medically appropriate, increase goal rate to 35ml/hr x 24 hrs -> advance 10ml q 4-6 hrs as tolerated to goal rate * Once TF well tolerated at goal, add Prosource 1pkt TID to meet protein needs * HOB over 30 degrees/ water flush per MD. ADDITIONAL RECOMMENDATIONS: 1) Calibrated bedscale wt for accurate CBW- daily wts for ESRD dx 2) Add Nephrovite x 1 3) Monitor BGs closely, for hypoglycemia : h/o frequent hypoglycemia during prev admissions, rec to continue w/ added D5 until TF meeting est needs 4) Monitor lytes, replete as needed .
--- NOTE | 2020-02-21 08:08 | Diagnostic Imaging Report ---
EXAM: XR Chest, 1 View CLINICAL HISTORY: DYSPNEA TECHNIQUE: Frontal view of the chest. COMPARISON: Chest x-ray dated 02/20/20. FINDINGS: Lungs: Mild pulmonary vascular congestion with subtle bilateral haziness, not significantly changed. Pleural space: Possible tiny pleural effusions. Heart: Cardiomegaly. Mediastinum: Unremarkable. Bones/joints: Degenerative changes throughout the visualized spine and shoulder joints. Vasculature: Mild atherosclerotic calcifications within the aortic arch. Tubes, lines and devices: Cardiac pacer in the left chest wall with the lead tips in the right atrium and right ventricle regions. Telemetry leads overlie the thorax. IMPRESSION: 1. Mild pulmonary vascular congestion with subtle bilateral haziness, not significantly changed. 2. Possible tiny pleural effusions. 3. Cardiomegaly.
--- NOTE | 2020-02-21 08:11 | NUR ---
NURSE NOTES: Patient observed in bed, appears to be sleeping at this time. Restraints remained on. Patient is tolerating vent settings; no respiratory distress noted at this time, saturating 100%. Dr Murillo present in the unit, ordered to hold off the ABG order for today until patient is ruled out for Covid-19. Will notify RT..
--- NOTE | 2020-02-21 08:20 | NUR ---
NURSE NOTES: Dr Murillo and Dr Henning notified and made aware of patient's troponin level.
--- NOTE | 2020-02-21 08:22 | Pulmonolgy Critical Care Note ---
Critical Care - Asmt/Plan Problems: (1) Sepsis (2) Acute respiratory failure (3) ESRD (end stage renal disease) on dialysis (4) Accelerated hypertension (5) Decubital ulcer (6) Pacemaker (7) Diabetes (8) Blindness of both eyes (9) Morbid obesity (10) HTN (hypertension) Respiratory: monitor respiratory rate, adjust FIO2, CXR Cardiac: continue pressors, continue to monitor HR/BP Renal: F/U I&O, keep IV fluid Infectious Disease: check cultures, continue antibiotics Gastrointestinal: continue feedings/current rate Endocrine: monitor blood sugar Hematologic: monitor H/H, transfuse if hgb<8.5 Neurologic: PRN Ativan, keep patient comfortable Affect: PRN ativan Prophylaxis: Protonix Time Spent (Minutes): 40 Notes Reviewed: cardio, 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, consultants, top case assemblersenior care manager - Objective Last 24 Hour Vital Signs Date Time Temp Pulse Resp B/P (MAP) Pulse Ox O2 Delivery O2 Flow Rate FiO2 02/21/20 08:00 50 02/21/20 07:15 60 16 50 02/21/20 07:00 60 16 125/73 (90) 100 02/21/20 06:22 65 16 02/21/20 06:00 65 16 155/50 (85) 100 02/21/20 05:00 65 16 148/51 (83) 100 02/21/20 04:47 63 16 50 02/21/20 04:00 Mechanical Ventilator 02/21/20 04:00 50 02/21/20 04:00 98.9 65 16 133/59 (83) 100 02/21/20 03:21 64 18 50 02/21/20 03:18 63 02/21/20 03:00 65 16 132/58 (82) 100 02/21/20 02:00 73 18 137/55 (82) 100 02/21/20 01:45 72 16 125/52 (76) 100 02/21/20 01:25 74 188/105 02/21/20 01:15 72 17 188/102 (130) 100 02/21/20 01:14 74 17 50 02/21/20 01:00 75 16 124/52 (76) 100 02/21/20 00:00 70 02/21/20 00:00 100.0 70 16 145/68 (93) 100 02/21/20 00:00 Mechanical Ventilator 02/21/20 00:00 50 02/20/20 23:16 71 16 50 02/20/20 23:00 72 16 124/52 (76) 100 02/20/20 22:00 77 16 116/50 (72) 100 02/20/20 21:05 77 14 50 02/20/20 21:00 75 16 128/49 (75) 100 02/20/20 20:54 170/75 02/20/20 20:45 76 16 170/65 (100) 100 02/20/20 20:00 97.6 76 12 135/51 (79) 100 02/20/20 20:00 Mechanical Ventilator 02/20/20 20:00 50 02/20/20 19:43 74 02/20/20 19:22 78 16 50 02/20/20 19:00 98.5 74 12 114/61 (78) 100 02/20/20 18:00 70 12 131/61 (84) 100 02/20/20 17:56 65 02/20/20 17:00 73 12 206/84 (124) 100 02/20/20 16:58 68 16 50 02/20/20 16:56 100.1 02/20/20 16:16 71 206/84 02/20/20 16:00 50 02/20/20 16:00 Endotracheal Tube 02/20/20 16:00 100.5 73 12 198/72 (114) 100 02/20/20 15:00 63 12 155/73 (100) 100 02/20/20 14:40 68 16 50 02/20/20 14:00 68 12 167/86 (113) 100 02/20/20 13:00 63 12 149/74 (99) 100 02/20/20 12:39 68 16 50 02/20/20 12:00 Endotracheal Tube 02/20/20 12:00 99.5 65 12 155/65 (95) 100 02/20/20 12:00 50 02/20/20 11:51 68 17 100 Mechanical Ventilator 50 02/20/20 11:47 71 16 50 02/20/20 11:33 Endotrachael Tube 02/20/20 11:26 77 02/20/20 11:26 77 02/20/20 11:15 101.0 87 19 181/98 100 Mechanical Ventilator 100 02/20/20 09:51 98 19 100 02/20/20 09:32 102.6 16 199/111 82 Room Air 02/20/20 09:31 86 16 Status: awake Condition: critical HEENT: atraumatic Lungs: clear Heart: HR/BP stable Abdomen: soft, active bowel sounds, feeding tube Micro: Microbiology Date/Time Source Procedure Growth Status 02/20/20 17:30 Nasopharynx - Final Complete 02/20/20 17:30 Nasopharynx - Final Complete 02/20/20 09:35 Nasal Nares - Final Complete 02/20/20 09:35 Nasal Nares - Final Complete 02/20/20 09:07 Urine,Clean Catch Urine Culture - Preliminary NO GROWTH Resulted 02/20/20 08:20 Rectum Received Accucheck: 96 Critical Care - Subjective ROS Limited/Unobtainable: No Condition: critical EKG Rhythm: Sinus Rhythm FI02: 50 Vent Support Breath Rate: 16 Vent Support Mode: AC Vent Tidal Volume: 600 Sputum Amount: Small PEEP: 0.0 PIP: 20 Tube Feeding Amount: 10 I&O: Intake and Output 02/20/20 02/21/20 19:00 07:00 Intake Total 772.83 ml 785 ml Output Total 150 ml 4005 ml Balance 622.83 ml -3220 ml Intake IV Total 752.83 ml 655 ml Tube Feeding 20 ml 80 ml Other 50 ml Output Urine Total 150 ml 5 ml Hemodialysis UF 4000 ml # Bowel Movements 2 CXR: no change, ET in a good position ET-Tube: 7.5 ET Position: 25 Labs: Laboratory Tests Test 02/20/20 09:07 02/20/20 09:15 02/21/20 05:10 Urine Color Brown Urine Appearance Turbid Urine pH 8 (4.5-8.0) Urine Specific [place] 1.015 (1.005-1.035) Urine Protein 4+ (NEGATIVE) H Urine Glucose (UA) Negative (NEGATIVE) Urine Ketones 1+ (NEGATIVE) H Urine Blood 4+ (NEGATIVE) H Urine Nitrite Positive (NEGATIVE) H Urine Bilirubin Negative (NEGATIVE) Urine Urobilinogen Normal MG/DL (0.0-1.0) Urine Leukocyte Esterase 3+ (NEGATIVE) H Urine RBC Tntc /HPF (0 - 2) H Urine WBC Tntc /HPF (0 - 2) H Urine Squamous Epithelial Cells Moderate /LPF (NONE/OCC) H Urine Bacteria Many /HPF (NONE) H Arterial Blood pH 7.501 (7.350-7.450) Arterial Blood Partial Pressure CO2 43.9 mmHg (35.0-45.0) Arterial Blood Partial Pressure O2 289.9 mmHg (75.0-100.0) H Arterial Blood HCO3 33.5 mmol/L (22.0-26.0) H Arterial Blood Oxygen Saturation 99.2 % (95-100) Arterial Blood Base Excess 9.4 (-2-2) *H Lester Test Positive Sodium Level 138 MMOL/L (136-145) Potassium Level 4.5 MMOL/L (3.5-5.1) Chloride Level 96 MMOL/L (98-107) L Carbon Dioxide Level 33 MMOL/L (21-32) H Anion Gap 9 mmol/L (5-15) Blood Urea Nitrogen 33 mg/dL (7-18) H Creatinine 5.0 MG/DL (0.55-1.30) H Estimat Glomerular Filtration Rate 10.7 mL/min (>60) Glucose Level 102 MG/DL (74-106) Uric Acid 3.5 MG/DL (2.6-7.2) Calcium Level 9.3 MG/DL (8.5-10.1) Phosphorus Level 4.8 MG/DL (2.5-4.9) Magnesium Level 2.2 MG/DL (1.8-2.4) Total Bilirubin 1.1 MG/DL (0.2-1.0) H Direct Bilirubin 0.2 MG/DL (0.0-0.3) Gamma Glutamyl Transpeptidase 330 U/L (5-85) H Aspartate Amino Transf (AST/SGOT) 29 U/L (15-37) Alanine Aminotransferase (ALT/SGPT) 22 U/L (12-78) Alkaline Phosphatase 324 U/L (46-116) H Troponin I 0.108 ng/mL (0.000-0.056) C-Reactive Protein, Quantitative 2.7 mg/dL (0.00-0.90) H Pro-B-Type Natriuretic Peptide 78538 pg/mL (0-125) H Total Protein 7.5 G/DL (6.4-8.2) Albumin 3.6 G/DL (3.4-5.0) Globulin 3.9 g/dL Albumin/Globulin Ratio 0.9 (1.0-2.7) L Triglycerides Level 212 MG/DL (30-150) H Cholesterol Level 167 MG/DL (< 200) LDL Cholesterol 58 mg/dL (<100) HDL Cholesterol 52 MG/DL (40-60) Cholesterol/HDL Ratio 3.2 (3.3-4.4) L Thyroid Stimulating Hormone (TSH) 0.514 uiU/mL (0.358-3.740) Meghana Murillo MD Feb 21, 2020 08:22
[2020-02-21] MEDS: D5NS 1,000 ML IV SCH (08:30)
[2020-02-21] MEDS: Pantoprazole Inj IVP SCH ×2 (08:56→20:27)
[2020-02-21] MEDS: Thiamine 100mg tab NG SCH (08:56)
[2020-02-21] MEDS: Pyridoxine 50mg tab NG SCH (08:56)
[2020-02-21] MEDS: Heparin 5000 units/ml inj SUBQ SCH ×2 (08:58→20:26)
[2020-02-21] MEDS ORDERED: Ertapenem 1 GM in NS 55 ML IV SCH (09:00)
[2020-02-21] MEDS ORDERED: sitaGLIPtin 25mg tab ORAL SCH (09:00)
--- NOTE | 2020-02-21 09:00 | NUR ---
NURSE NOTES: Scheduled medications given as ordered. Restraints released, checked pulses and circulation. Reapplied restraints after care.
--- NOTE | 2020-02-21 09:05 | NUR ---
NURSE NOTES: Right upper arm AV shunt noted with good bruit and thrill. Tyler catheter draining to gravity, noted minimal output. Will continue to monitor.
--- NOTE | 2020-02-21 10:30 | NUR ---
NURSE NOTES: Dr Hunter present in the unit, no new orders received at this time. Observed patient in bed still appears to be sleeping, VSS. No acute distress noted at this time. Safety precautions in place, will continue to monitor.
--- NOTE | 2020-02-21 11:51 | Nephrology Progress Note ---
Assessment/Plan Problem List: (1) Acute respiratory failure (2) ESRD (end stage renal disease) on dialysis (3) UTI (urinary tract infection) (4) Patient is Tenriism (5) Pacemaker (6) Diabetes (7) Obesity (BMI 30-39.9) Assessment ARDS (adult respiratory distress syndrome) Fever Sepsis UTI (urinary tract infection) Respiratory failure, intubated on ventilator Thrombocytopenia Lymphopenia End stage renal disease on dialysis. Has a right upper arm dialysis fistula as Acces . Getting dialysis Sunday. morbid obesity Anemia / Jehova's witness CAD previous stent HTN- hypertensive urgency upon arrival to [facility]. s/p AVG DM 2 bilateral eye blindness h/o CHF Pacemaker Plan Plan: Per ID and pulmonary, ventilator adjustment Dialysis February 19 with ultrafiltration and low potassium bath done Next dialysis tomorrow February 21 EPO, thiamin and b6 via NG tube Phos binders diet to renal , medium CHO per consultants Subjective ROS Limited/Unobtainable: Yes Objective Objective Last 24 Hour Vital Signs Date Time Temp Pulse Resp B/P (MAP) Pulse Ox O2 Delivery O2 Flow Rate FiO2 02/21/20 11:07 60 16 50 02/21/20 11:00 63 17 150/58 (88) 100 02/21/20 10:00 62 16 143/55 (84) 100 02/21/20 09:10 60 16 50 02/21/20 09:00 67 16 156/44 (81) 100 02/21/20 08:57 61 143/72 02/21/20 08:00 98.5 61 16 143/72 (95) 100 02/21/20 08:00 Mechanical Ventilator 02/21/20 08:00 50 02/21/20 08:00 60 02/21/20 07:15 60 16 50 02/21/20 07:00 60 16 125/73 (90) 100 02/21/20 06:22 65 16 02/21/20 06:00 65 16 155/50 (85) 100 02/21/20 05:00 65 16 148/51 (83) 100 02/21/20 04:47 63 16 50 02/21/20 04:00 Mechanical Ventilator 02/21/20 04:00 50 02/21/20 04:00 98.9 65 16 133/59 (83) 100 02/21/20 03:21 64 18 50 02/21/20 03:18 63 02/21/20 03:00 65 16 132/58 (82) 100 02/21/20 02:00 73 18 137/55 (82) 100 02/21/20 01:45 72 16 125/52 (76) 100 02/21/20 01:25 74 188/105 02/21/20 01:15 72 17 188/102 (130) 100 02/21/20 01:14 74 17 50 02/21/20 01:00 75 16 124/52 (76) 100 02/21/20 00:00 70 02/21/20 00:00 100.0 70 16 145/68 (93) 100 02/21/20 00:00 Mechanical Ventilator 02/21/20 00:00 50 02/20/20 23:16 71 16 50 02/20/20 23:00 72 16 124/52 (76) 100 02/20/20 22:00 77 16 116/50 (72) 100 02/20/20 21:05 77 14 50 02/20/20 21:00 75 16 128/49 (75) 100 02/20/20 20:54 170/75 02/20/20 20:45 76 16 170/65 (100) 100 02/20/20 20:00 97.6 76 12 135/51 (79) 100 02/20/20 20:00 Mechanical Ventilator 02/20/20 20:00 50 02/20/20 19:43 74 02/20/20 19:22 78 16 50 02/20/20 19:00 98.5 74 12 114/61 (78) 100 02/20/20 18:00 70 12 131/61 (84) 100 02/20/20 17:56 65 02/20/20 17:00 73 12 206/84 (124) 100 02/20/20 16:58 68 16 50 02/20/20 16:56 100.1 02/20/20 16:16 71 206/84 02/20/20 16:00 50 02/20/20 16:00 Endotracheal Tube 02/20/20 16:00 100.5 73 12 198/72 (114) 100 02/20/20 15:00 63 12 155/73 (100) 100 02/20/20 14:40 68 16 50 02/20/20 14:00 68 12 167/86 (113) 100 02/20/20 13:00 63 12 149/74 (99) 100 02/20/20 12:39 68 16 50 02/20/20 12:00 Endotracheal Tube 02/20/20 12:00 99.5 65 12 155/65 (95) 100 02/20/20 12:00 50 02/20/20 11:51 68 17 100 Mechanical Ventilator 50 02/20/20 11:47 71 16 50 Intake and Output 02/20/20 02/21/20 19:00 07:00 Intake Total 772.83 ml 785 ml Output Total 150 ml 4005 ml Balance 622.83 ml -3220 ml Intake IV Total 752.83 ml 655 ml Tube Feeding 20 ml 80 ml Other 50 ml Output Urine Total 150 ml 5 ml Hemodialysis UF 4000 ml # Bowel Movements 2 Laboratory Tests 02/21/20 05:10: Sodium Level 138, Potassium Level 4.5, Chloride Level 96L, Carbon Dioxide Level 33H, Anion Gap 9, Blood Urea Nitrogen 33H, Creatinine 5.0H, Estimat Glomerular Filtration Rate 10.7, Glucose Level 102, Uric Acid 3.5, Calcium Level 9.3, Phosphorus Level 4.8, Magnesium Level 2.2, Total Bilirubin 1.1H, Direct Bilirubin 0.2, Gamma Glutamyl Transpeptidase 330H, Aspartate Amino Transf (AST/ SGOT) 29, Alanine Aminotransferase (ALT/SGPT) 22, Alkaline Phosphatase 324H, Troponin I 0.108H, C-Reactive Protein, Quantitative 2.7H, Pro-B-Type Natriuretic Peptide 09491N, Total Protein 7.5, Albumin 3.6, Globulin 3.9, Albumin/Globulin Ratio 0.9L, Triglycerides Level 212H, Cholesterol Level 167, LDL Cholesterol 58, HDL Cholesterol 52, Cholesterol/HDL Ratio 3.2L, Thyroid Stimulating Hormone (TSH) 0.514 Height (Feet): 5 Height (Inches): 7.00 Weight (Pounds): 246 General Appearance: no apparent distress EENT: other - Remains intubated on ventilator Cardiovascular: normal rate, bradycardia Respiratory/Chest: decreased breath sounds Abdomen: distended Bryan Hunter MD Feb 21, 2020 11:51
[2020-02-21 12:03] LABS: HEMATOCRIT 34.8 % (37.0-47.0); MEAN CORPUSCULAR VOLUME 77 FL (80-99); PLATELET COUNT 175 K/UL (150-450); RED BLOOD COUNT 4.54 M/UL (4.20-5.40); WHITE BLOOD COUNT 5.3 K/UL (4.8-10.8)
--- NOTE | 2020-02-21 12:30 | NUR ---
NURSE NOTES: Patient was turned and repositioned, suctioned orally and via ET tube with thin, white, moderate amount of sputum. Blood glucose was checked, insulin given per sliding scale. IV established on right wrist, 22g. Restraints care provided. Safety precautions in place; bed locked, alarmed, and in lowest position, side rails up x3. Will continue to monitor.
[2020-02-21] MEDS: Nitroglycerin Patch 0.4mg TDERMAL SCH (12:50)
--- NOTE | 2020-02-21 13:35 | NUR ---
NURSE NOTES: Spoke with Dwayne from [facility] for HD order 02/22/20. Awaiting for call back/confirmation from HD nurse.
--- NOTE | 2020-02-21 14:00 | NUR ---
NURSE NOTES: Patient remains orally intubated with ETT 7.5, 24 cm at lip line. Secured and anchored properly. Patient is tolerating vent settings AC 16, TV 600, FiO2 50%, no PEEP; patient is saturating 100%. Will continue to monitor.
[2020-02-21] MEDS ORDERED: Amikacin Rx to dose MISC PRN (14:30)
--- NOTE | 2020-02-21 14:32 | Infectious Diseases Prog Note ---
Assessment/Plan Assessment/Plan ASSESSMENT: The patient is a 64-year-old female with Probable COVID-19 ( hx of close contact to COVID-19 at SN[facility] ) Pneum Fever No leukocytosis -02/20 CXR: Mild pulmonary vascular congestion with subtle bilateral haziness , not significantly changed.Possible tiny pleural effusions. Cardiomegaly. -Bcx p -sp cx p UTI u/a wbc tnct, nit +, leuk +3; ucx NTD Hx of positive blood culture CONS ,persistent 02/04BCx: CoNS 01/30 Bc: (1/2)CoNS and Citrobacter 01/27 , 02/01 Bc: CoNS - (outside facility, # of the +ve cultures are not clear) A 2D echo from outside facility did not show any evidence of vegetation as per Carido pt is high risk for CLAY: ( last admission ) Diabetes. CHF. ESRD. Hypertension. Obesity. PLAN: cont Amikacin, Ertap #2 continue the patient on vancomycin, day # ? ( will Rx for probable SBE) Monitor CBC. Monitor BMP. Monitor cultures (blood, Sp ) f/u COVID-19 Airborne. Contact plus Isolation Subjective Allergies: Coded Allergies: NO KNOWN ALLERGIES (Unverified Allergy, Unknown, 10/15/15) Subjective Tm 100.1 Fio2 50 % no leukocyotsis Bcx p Objective Vital Signs Last 24 Hour Vital Signs Date Time Temp Pulse Resp B/P (MAP) Pulse Ox O2 Delivery O2 Flow Rate FiO2 02/21/20 13:00 68 16 177/66 (103) 100 02/21/20 12:50 162/56 02/21/20 12:00 50 02/21/20 12:00 Mechanical Ventilator 02/21/20 12:00 61 16 153/60 (91) 100 02/21/20 11:07 60 16 50 02/21/20 11:00 63 17 150/58 (88) 100 02/21/20 10:00 62 16 143/55 (84) 100 02/21/20 09:10 60 16 50 02/21/20 09:00 67 16 156/44 (81) 100 02/21/20 08:57 61 143/72 02/21/20 08:00 98.5 61 16 143/72 (95) 100 02/21/20 08:00 Mechanical Ventilator 02/21/20 08:00 50 02/21/20 08:00 60 02/21/20 07:15 60 16 50 02/21/20 07:00 60 16 125/73 (90) 100 02/21/20 06:22 65 16 02/21/20 06:00 65 16 155/50 (85) 100 02/21/20 05:00 65 16 148/51 (83) 100 02/21/20 04:47 63 16 50 02/21/20 04:00 Mechanical Ventilator 02/21/20 04:00 50 02/21/20 04:00 98.9 65 16 133/59 (83) 100 02/21/20 03:21 64 18 50 02/21/20 03:18 63 02/21/20 03:00 65 16 132/58 (82) 100 02/21/20 02:00 73 18 137/55 (82) 100 02/21/20 01:45 72 16 125/52 (76) 100 02/21/20 01:25 74 188/105 02/21/20 01:15 72 17 188/102 (130) 100 02/21/20 01:14 74 17 50 02/21/20 01:00 75 16 124/52 (76) 100 02/21/20 00:00 70 02/21/20 00:00 100.0 70 16 145/68 (93) 100 02/21/20 00:00 Mechanical Ventilator 02/21/20 00:00 50 02/20/20 23:16 71 16 50 02/20/20 23:00 72 16 124/52 (76) 100 02/20/20 22:00 77 16 116/50 (72) 100 02/20/20 21:05 77 14 50 02/20/20 21:00 75 16 128/49 (75) 100 02/20/20 20:54 170/75 02/20/20 20:45 76 16 170/65 (100) 100 02/20/20 20:00 97.6 76 12 135/51 (79) 100 02/20/20 20:00 Mechanical Ventilator 02/20/20 20:00 50 02/20/20 19:43 74 02/20/20 19:22 78 16 50 02/20/20 19:00 98.5 74 12 114/61 (78) 100 02/20/20 18:00 70 12 131/61 (84) 100 02/20/20 17:56 65 02/20/20 17:00 73 12 206/84 (124) 100 02/20/20 16:58 68 16 50 02/20/20 16:56 100.1 02/20/20 16:16 71 206/84 02/20/20 16:00 50 02/20/20 16:00 Endotracheal Tube 02/20/20 16:00 100.5 73 12 198/72 (114) 100 02/20/20 15:00 63 12 155/73 (100) 100 02/20/20 14:40 68 16 50 Height (Feet): 5 Height (Inches): 7.00 Weight (Pounds): 246 Objective Lines, tubes and drains: endotracheal tube HEENT: atraumatic Neck: supple Respiratory/Chest: no respiratory distress Cardiovascular/Chest: regular rhythm Abdomen: soft Microbiology Date/Time Source Procedure Growth Status 02/20/20 17:30 Nasopharynx - Final Complete 02/20/20 17:30 Nasopharynx - Final Complete 02/20/20 09:35 Nasal Nares - Final Complete 02/20/20 09:35 Nasal Nares - Final Complete 02/20/20 09:07 Urine,Clean Catch Urine Culture - Preliminary NO GROWTH Resulted 02/20/20 08:20 Rectum Received Laboratory Tests Test 02/21/20 05:10 02/21/20 11:45 Sodium Level 138 MMOL/L (136-145) Potassium Level 4.5 MMOL/L (3.5-5.1) Chloride Level 96 MMOL/L (98-107) L Carbon Dioxide Level 33 MMOL/L (21-32) H Anion Gap 9 mmol/L (5-15) Blood Urea Nitrogen 33 mg/dL (7-18) H Creatinine 5.0 MG/DL (0.55-1.30) H Estimat Glomerular Filtration Rate 10.7 mL/min (>60) Glucose Level 102 MG/DL (74-106) Uric Acid 3.5 MG/DL (2.6-7.2) Calcium Level 9.3 MG/DL (8.5-10.1) Phosphorus Level 4.8 MG/DL (2.5-4.9) Magnesium Level 2.2 MG/DL (1.8-2.4) Total Bilirubin 1.1 MG/DL (0.2-1.0) H Direct Bilirubin 0.2 MG/DL (0.0-0.3) Gamma Glutamyl Transpeptidase 330 U/L (5-85) H Aspartate Amino Transf (AST/SGOT) 29 U/L (15-37) Alanine Aminotransferase (ALT/SGPT) 22 U/L (12-78) Alkaline Phosphatase 324 U/L (46-116) H Troponin I 0.108 ng/mL (0.000-0.056) C-Reactive Protein, Quantitative 2.7 mg/dL (0.00-0.90) H Pro-B-Type Natriuretic Peptide 33855 pg/mL (0-125) H Total Protein 7.5 G/DL (6.4-8.2) Albumin 3.6 G/DL (3.4-5.0) Globulin 3.9 g/dL Albumin/Globulin Ratio 0.9 (1.0-2.7) L Triglycerides Level 212 MG/DL (30-150) H Cholesterol Level 167 MG/DL (< 200) LDL Cholesterol 58 mg/dL (<100) HDL Cholesterol 52 MG/DL (40-60) Cholesterol/HDL Ratio 3.2 (3.3-4.4) L Thyroid Stimulating Hormone (TSH) 0.514 uiU/mL (0.358-3.740) White Blood Count 5.3 K/UL (4.8-10.8) Red Blood Count 4.54 M/UL (4.20-5.40) Hemoglobin 11.0 G/DL (12.0-16.0) L Hematocrit 34.8 % (37.0-47.0) L Mean Corpuscular Volume 77 FL (80-99) L Mean Corpuscular Hemoglobin 24.2 PG (27.0-31.0) L Mean Corpuscular Hemoglobin Concent 31.6 G/DL (32.0-36.0) L Red Cell Distribution Width 16.0 % (11.6-14.8) H Platelet Count 175 K/UL (150-450) # Mean Platelet Volume 6.3 FL (6.5-10.1) L Neutrophils (%) (Auto) % (45.0-75.0) Lymphocytes (%) (Auto) % (20.0-45.0) Monocytes (%) (Auto) % (1.0-10.0) Eosinophils (%) (Auto) % (0.0-3.0) Basophils (%) (Auto) % (0.0-2.0) Differential Total Cells Counted 100 Neutrophils % (Manual) 55 % (45-75) Lymphocytes % (Manual) 25 % (20-45) Monocytes % (Manual) 20 % (1-10) H Eosinophils % (Manual) 0 % (0-3) Basophils % (Manual) 0 % (0-2) Band Neutrophils 0 % (0-8) Platelet Estimate Adequate Platelet Morphology Normal Hypochromasia 1+ Microcytosis 1+ Hemoglobin A1c 6.3 % (4.3-6.0) H Random Vancomycin Level 26.9 ug/mL Current Medications Medications (Trade) Dose Ordered Sig/Josi Route PRN Reason Start Time Stop Time Status Last Admin Dose Admin Acetaminophen (Tylenol) 650 mg Q4H PRN ORAL fever 02/20/20 09:00 03/21/20 08:59 02/20/20 16:26 Albuterol/ Ipratropium (Albuterol/ Ipratropium) 3 ml Q4H PRN HHN Shortness of Breath 02/20/20 09:00 02/25/20 08:59 Amlodipine Besylate (Norvasc) 10 mg DAILY NG 02/21/20 09:00 03/22/20 08:59 02/21/20 08:57 Atorvastatin Calcium (Lipitor) 10 mg BEDTIME NG 02/20/20 21:00 05/20/20 20:59 02/20/20 20:36 Epoetin Jose De Jesus (Epoetin Jose De Jesus(ESRD on dialysis)) 10,000 unit SUN-SUN-SUN SUBQ 02/20/20 21:00 05/20/20 20:59 02/20/20 20:36 Ertapenem 0.5 gm/ Sodium Chloride 55 ml @ 110 mls/hr Q24H IV 02/20/20 20:00 02/25/20 19:59 02/20/20 20:15 Heparin Sodium (Porcine) (Heparin 5000 units/ml) 5,000 units EVERY 12 HOURS SUBQ 02/20/20 21:00 04/05/20 20:59 02/21/20 08:58 Hydralazine HCl (Apresoline) 10 mg Q4H PRN IV Blood pressure over 160 systol 02/20/20 12:45 05/20/20 12:44 02/20/20 20:54 Insulin Aspart (NovoLOG) BEFORE MEALS AND HS SUBQ 02/20/20 12:30 05/20/20 12:29 02/21/20 11:48 Labetalol HCl (Normodyne) 20 mg EVERY HOUR PRN IV sbp more than 180mmHg 02/20/20 11:00 03/21/20 10:59 02/21/20 01:25 Lorazepam (Ativan 2mg/ml 1ml) 2 mg Q2H PRN IV For Anxiety 02/20/20 09:00 02/27/20 08:59 Morphine Sulfate (Morphine Sulfate) 4 mg Q4H PRN IVP Severe Pain (Pain Scale 7-10) 02/20/20 09:00 02/27/20 08:59 Nitroglycerin (Ntg) 1 patch Q24H TDERMAL 02/21/20 12:00 03/22/20 11:59 02/21/20 12:50 Ondansetron HCl (Zofran) 4 mg Q6H PRN IVP Nausea & Vomiting 02/20/20 09:00 03/21/20 08:59 Pantoprazole (Protonix) 40 mg Q12HR IVP 02/20/20 21:00 03/21/20 11:59 02/21/20 08:56 Pyridoxine HCl (Vitamin B6) 50 mg DAILY NG 02/21/20 09:00 03/22/20 08:59 02/21/20 08:56 Thiamine HCl (Vitamin B1) 100 mg DAILY NG 02/21/20 09:00 03/22/20 08:59 02/21/20 08:56 Vancomycin HCl (Vanco rx to dose) 1 ea DAILY PRN MISC . 02/20/20 11:15 03/21/20 11:14 Susi Vanegas M.D. Feb 21, 2020 14:32
--- NOTE | 2020-02-21 16:31 | NUR ---
NURSE NOTES: Patient appears to be asleep at this time; opens eyes to verbal stimuli. Patient can follow simple commands and can nod to answer questions. Suctioned patient via ET tube and orally; small amount of thin, white secretions noted. Complete bed bath given, claire-care and oral care provided. Placed patient in clean sheets and gown. BM noted; brown soft, moderate amount. Restraints care provided; pulses and circulation checked; reapplied. Blood glucose checked, insulin given per sliding scale. NGT remains in place on the right nares. Placed HOB elevated, TF resumed after bed bath. Bilateral lower extremities elevated and supported with pillows. Safety precautions in place, bed locked, alarmed, and in lowest position, side rails up x3. Blood collected and sent down to lab for Amikacin levels. All patient needs attended to. Dr Reyna present in the unit, notified and made aware of troponin level today and patient's heart rhythms. No new orders received at this time. Will continue to monitor patient.
--- NOTE | 2020-02-21 16:45 | NUR ---
NURSE NOTES: Dr Vanegas present in the unit; no new orders received.
--- NOTE | 2020-02-21 17:07 | Cardiology Progress Note ---
Assessment/Plan Assessment/Plan full note dictated [id number] she looks ok on the vent on covid 19 isolation once result back in the next 24-48 hour will repeat echo xray not suggestive of sig heart failure nto tachy no febrile today and has a uti i did not examine pt personally i did not feel the risk to me personally are worth the limited information that could be obtained while pt is not communicative and jose vent will reconsider once the result of covid 19 are available Objective Last 24 Hour Vital Signs Date Time Temp Pulse Resp B/P (MAP) Pulse Ox O2 Delivery O2 Flow Rate FiO2 02/21/20 16:00 Mechanical Ventilator 02/21/20 16:00 63 02/21/20 16:00 98.4 66 16 137/46 (76) 100 02/21/20 16:00 50 02/21/20 15:19 62 17 50 02/21/20 15:00 62 16 147/56 (86) 100 02/21/20 14:00 62 16 126/59 (81) 100 02/21/20 13:02 61 16 50 02/21/20 13:00 68 16 177/66 (103) 100 02/21/20 12:50 162/56 02/21/20 12:00 60 02/21/20 12:00 50 02/21/20 12:00 Mechanical Ventilator 02/21/20 12:00 61 16 153/60 (91) 100 02/21/20 11:07 60 16 50 02/21/20 11:00 63 17 150/58 (88) 100 02/21/20 10:00 62 16 143/55 (84) 100 02/21/20 09:10 60 16 50 02/21/20 09:00 67 16 156/44 (81) 100 02/21/20 08:57 61 143/72 02/21/20 08:00 98.5 61 16 143/72 (95) 100 02/21/20 08:00 Mechanical Ventilator 02/21/20 08:00 50 02/21/20 08:00 60 02/21/20 07:15 60 16 50 02/21/20 07:00 60 16 125/73 (90) 100 02/21/20 06:22 65 16 02/21/20 06:00 65 16 155/50 (85) 100 02/21/20 05:00 65 16 148/51 (83) 100 02/21/20 04:47 63 16 50 02/21/20 04:00 Mechanical Ventilator 02/21/20 04:00 50 02/21/20 04:00 98.9 65 16 133/59 (83) 100 02/21/20 03:21 64 18 50 02/21/20 03:18 63 02/21/20 03:00 65 16 132/58 (82) 100 02/21/20 02:00 73 18 137/55 (82) 100 02/21/20 01:45 72 16 125/52 (76) 100 02/21/20 01:25 74 188/105 02/21/20 01:15 72 17 188/102 (130) 100 02/21/20 01:14 74 17 50 02/21/20 01:00 75 16 124/52 (76) 100 02/21/20 00:00 70 02/21/20 00:00 100.0 70 16 145/68 (93) 100 02/21/20 00:00 Mechanical Ventilator 02/21/20 00:00 50 02/20/20 23:16 71 16 50 02/20/20 23:00 72 16 124/52 (76) 100 02/20/20 22:00 77 16 116/50 (72) 100 02/20/20 21:05 77 14 50 02/20/20 21:00 75 16 128/49 (75) 100 02/20/20 20:54 170/75 02/20/20 20:45 76 16 170/65 (100) 100 02/20/20 20:00 97.6 76 12 135/51 (79) 100 02/20/20 20:00 Mechanical Ventilator 02/20/20 20:00 50 02/20/20 19:43 74 02/20/20 19:22 78 16 50 02/20/20 19:00 98.5 74 12 114/61 (78) 100 02/20/20 18:00 70 12 131/61 (84) 100 02/20/20 17:56 65 Intake and Output 02/20/20 02/21/20 19:00 07:00 Intake Total 772.83 ml 785 ml Output Total 150 ml 4005 ml Balance 622.83 ml -3220 ml Intake IV Total 752.83 ml 655 ml Tube Feeding 20 ml 80 ml Other 50 ml Output Urine Total 150 ml 5 ml Hemodialysis UF 4000 ml # Bowel Movements 2 Laboratory Tests Test 02/21/20 05:10 02/21/20 11:45 02/21/20 15:00 Sodium Level 138 MMOL/L (136-145) Potassium Level 4.5 MMOL/L (3.5-5.1) Chloride Level 96 MMOL/L (98-107) L Carbon Dioxide Level 33 MMOL/L (21-32) H Anion Gap 9 mmol/L (5-15) Blood Urea Nitrogen 33 mg/dL (7-18) H Creatinine 5.0 MG/DL (0.55-1.30) H Estimat Glomerular Filtration Rate 10.7 mL/min (>60) Glucose Level 102 MG/DL (74-106) Uric Acid 3.5 MG/DL (2.6-7.2) Calcium Level 9.3 MG/DL (8.5-10.1) Phosphorus Level 4.8 MG/DL (2.5-4.9) Magnesium Level 2.2 MG/DL (1.8-2.4) Total Bilirubin 1.1 MG/DL (0.2-1.0) H Direct Bilirubin 0.2 MG/DL (0.0-0.3) Gamma Glutamyl Transpeptidase 330 U/L (5-85) H Aspartate Amino Transf (AST/SGOT) 29 U/L (15-37) Alanine Aminotransferase (ALT/SGPT) 22 U/L (12-78) Alkaline Phosphatase 324 U/L (46-116) H Troponin I 0.108 ng/mL (0.000-0.056) C-Reactive Protein, Quantitative 2.7 mg/dL (0.00-0.90) H Pro-B-Type Natriuretic Peptide 48376 pg/mL (0-125) H Total Protein 7.5 G/DL (6.4-8.2) Albumin 3.6 G/DL (3.4-5.0) Globulin 3.9 g/dL Albumin/Globulin Ratio 0.9 (1.0-2.7) L Triglycerides Level 212 MG/DL (30-150) H Cholesterol Level 167 MG/DL (< 200) LDL Cholesterol 58 mg/dL (<100) HDL Cholesterol 52 MG/DL (40-60) Cholesterol/HDL Ratio 3.2 (3.3-4.4) L Thyroid Stimulating Hormone (TSH) 0.514 uiU/mL (0.358-3.740) White Blood Count 5.3 K/UL (4.8-10.8) Red Blood Count 4.54 M/UL (4.20-5.40) Hemoglobin 11.0 G/DL (12.0-16.0) L Hematocrit 34.8 % (37.0-47.0) L Mean Corpuscular Volume 77 FL (80-99) L Mean Corpuscular Hemoglobin 24.2 PG (27.0-31.0) L Mean Corpuscular Hemoglobin Concent 31.6 G/DL (32.0-36.0) L Red Cell Distribution Width 16.0 % (11.6-14.8) H Platelet Count 175 K/UL (150-450) # Mean Platelet Volume 6.3 FL (6.5-10.1) L Neutrophils (%) (Auto) % (45.0-75.0) Lymphocytes (%) (Auto) % (20.0-45.0) Monocytes (%) (Auto) % (1.0-10.0) Eosinophils (%) (Auto) % (0.0-3.0) Basophils (%) (Auto) % (0.0-2.0) Differential Total Cells Counted 100 Neutrophils % (Manual) 55 % (45-75) Lymphocytes % (Manual) 25 % (20-45) Monocytes % (Manual) 20 % (1-10) H Eosinophils % (Manual) 0 % (0-3) Basophils % (Manual) 0 % (0-2) Band Neutrophils 0 % (0-8) Platelet Estimate Adequate Platelet Morphology Normal Hypochromasia 1+ Microcytosis 1+ Hemoglobin A1c 6.3 % (4.3-6.0) H Random Vancomycin Level 26.9 ug/mL Random Amikacin Level Pending Microbiology Date/Time Source Procedure Growth Status 02/20/20 17:30 Nasopharynx - Final Complete 02/20/20 17:30 Nasopharynx - Final Complete 02/20/20 09:35 Nasal Nares - Final Complete 02/20/20 09:35 Nasal Nares - Final Complete 02/20/20 09:07 Urine,Clean Catch Urine Culture - Preliminary NO GROWTH Resulted 02/20/20 08:20 Rectum Received Daneshrad,Wilfredo S. MD Feb 21, 2020 17:07
--- NOTE | 2020-02-21 18:21 | NUR ---
NURSE NOTES: Observed patient in bed, asleep, appears to be comfortable. No s/s of pain, no facial grimacing noted. VSS, patient remained afebrile throughout the shift. TF ongoing, Nepro at 20ml/hour. Will increase accordingly as tolerated. Bilateral wrist restraints remains on. Safety precautions in place. Will continue to monitor.
--- NOTE | 2020-02-21 18:54 | NUR ---
HAND-OFF: Report given to Janey Barillas RN. Endorsed plan of care.
--- NOTE | 2020-02-21 19:00 | NUR ---
NURSE NOTES: Received patient from NATHALIA Hsieh. Will continue plan of care.
--- NOTE | 2020-02-21 20:00 | NUR ---
NURSE NOTES: Patient is awake and alert with eyes tracking. Is intubated with ETT 7.5 @ 25cm to the right side lipline to vent with settings of AC:16, TV:600, FiO2:50%, O2:100%. Current BP:133/49, HR:64. On NGT feeding of Nephro @ 20ml/hr will increase to goal of 35ml/he as tolerated. Tyler catheter noted and draining. Bilateral wrist restraint on for safety. Bed low, locked and alarm is on. Will continue plan of care.
[2020-02-21] MEDS: Ertapenem 500mg ivpb (q24h) IV SCH ×2 (20:25)
--- NOTE | 2020-02-21 22:00 | NUR ---
NURSE NOTES: Patient is lethargic. Blood sugar checked, resulting at 127. Turned and repositioned. Patient has slight fever, cooling measures in place. Bed low, locked and alarm is on.
[2020-02-22] VITALS (24 sets, daily range): BP systolic 107–180; BP diastolic 44–88
--- NOTE | 2020-02-22 | NUR ---
NURSE NOTES: Patient is resting, able to re-adjust herself in bed. Bilateral wrist restraints remain on to prevent from pulling medical devices. Current BP:116/49, HR:70, O2:100%. Safety measures remains in place. Will continue to monitor.
--- NOTE | 2020-02-22 02:00 | NUR ---
NURSE NOTES: Temp of 100.5F axillary, tylenol 650mg given via NGT. Will keep a monitor. Bed bath given to cool patient down. Linens changed, patient assisted on turning and repositioning. 1 BM noted, urine output poor- MDs are aware, HD patient and is scheduled for the AM. Safety measures remains in place.
--- NOTE | 2020-02-22 04:00 | NUR ---
NURSE NOTES: No change in patients condition. Patient is sleeping comfortably, show no signs of pain or distress.
--- NOTE | 2020-02-22 04:00 | Consultation ---
DATE OF CONSULTATION: 02/21/2020 CARDIOLOGY CONSULTATION CONSULTING PHYSICIAN: Wilfredo Reyna M.D. REFERRING PHYSICIAN: Meghana Murillo M.D. REASON FOR REFERRAL: Respiratory failure. HISTORY OF PRESENT ILLNESS: This is a middle-aged female, who is known to me from prior hospitalization and evaluation. During last hospitalization, the patient was noted to be bacteremic. Because of her respiratory status being related to her obesity hypoventilation syndrome and body weight, the risks of transesophageal echocardiogram under general anesthesia was felt not to be worth that medication. The patient was treated with a course of antibiotics. She has brought back to the emergency room from a convalescent facility. She is on a mechanical ventilator in isolation for COVID-19 and therefore is not able to provide much in terms of information, so whatever information is available through review of the chart and the teaching aide and ER physician's notation. The ambulance report is reviewed indicates that the patient was seen at the convalescent facility because of lying in bed, alert and oriented x1, complaining of shortness of breath for 30 minutes, low oxygen saturation of 82% on room air, fever of 102.5, short of breath. COVID-19 isolation precautions were taken by all members. The patient with dialysis before last night, fever, had rapid heart rate this morning. Tylenol was given with no effect. The patient was assisted to the [facility] and was placed on a non-rebreather mask with improvement in the saturation and transferred to the emergency room. Report was provided to the emergency room physician. The emergency room physician's notation indicates she was felt to have respiratory failure, had fevers, and urinary tract infection. She was given broad-spectrum antibiotics and a chest x-ray was performed. The emergency room physician thought that possibility of early ARDS. Given the concern with COVID-19 and normal blood pressure, IV fluids were not administered and the patient was intubated by Rapid sequence intubation and without bagging and was admitted to the intensive care unit and the emergency room physician felt that the patient had typical findings of COVID-19 including ARDS, lymphopenia, thrombocytopenia, and increased CRP. The patient is now on a mechanical ventilator in isolation room. PAST MEDICAL HISTORY: Past medical history that is available is when I reviewed her status last time. She was hospitalized earlier this January includes a history of diabetes, hyperlipidemia, obesity, depression, alcoholism in remission, and history of cocaine use, although the patient herself denied that, peripheral neuropathy secondary to diabetes, essential hypertension, end-stage renal disease, history of pacemaker implantation, so she is usually followed by [facility], history of coronary artery disease. She underwent apparently two stents back in 2009. She does have a history of anemia, bilateral blindness, apparently history of myocardial perfusion imaging at [facility] in [place] in September 2018, reportedly normal at that point according to review of the older charts. Previously, ejection fraction of 55% during the last hospitalization. She had an echocardiogram earlier this month approximately three weeks ago that was technically difficult, ejection fraction 60% to 65%, moderate MR, mild diastolic relaxation abnormalities, moderate TR, and pulmonary artery systolic pressure of 74. ALLERGIES: She is not allergic to any medications. SOCIAL HISTORY: She denies any drug use. Denies any smoking or drinking alcoholic beverages. REVIEW OF SYSTEMS: Unable to obtain. PHYSICAL EXAMINATION: The patient was not physically examined. The patient is in isolation and hemodynamically appears stable and COVID-19 swab results are not available, so I did not think it was necessary for me to jeopardize myself by entering the room and provide any meaningful information despite risk, so that was not performed. However, the patient looks comfortable on mechanical ventilator and does not appear to be in any kind of respiratory distress as I see her from outside the room. LABORATORY AND DIAGNOSTIC DATA: Her white count was 8.1 yesterday, was down to 5.3 today, was 6.3 previously; hemoglobin 11, and platelet count of 175, previously in the 200 range yesterday was initially in 111 range. Blood gases yesterday, pH of 7.5, pCO2 of 42, pO2 of 290, bicarbonate of 35, and 99% saturation. Sodium is today 138, potassium 4.5, chloride 96, bicarb 33, BUN of 33, creatinine 5.0, and glucose of 102. An A1c of 6.3. GGT of 330, was previously 448 back in September. Cardiac enzymes, troponin 0.0108. Her proBNP of 27,000, previously as high as 33,000. Her triglycerides of 212 with LDL of 58 and HDL of 52. TSH is 0.15. Coags - INR of 1, PTT of 32. Urinalysis shows too numerous to count wbc's and rbc's, 3+ leukocyte esterase, 4+ of blood. Her chest x-ray according to the radiology report, mild pulmonary vascular congestion with subtle bilateral haziness, not significantly changed, possible tiny pleural effusion, cardiomegaly, and really has nothing to suggest an ARDS picture, and initially chest x-ray that was performed was patchy bilateral airspace opacities, right greater than left, and central venous vascular prominence. Problems may be related to developing alveolar edema, possibility of typical infections not included and obviously that did not appear that way on the study today. The patient's EKG shows normal sinus rhythm, normal QRS axis, really no significant ST or T-wave abnormalities noted. Telemetry shows intermittent atrial pacing, maybe some premature ventricular complexes at times in bigeminal pattern 08:14. ASSESSMENT AND PLAN: 1. Respiratory failure. 2. History of obesity hypoventilation syndrome. 3. History of pulmonary hypertension previously. 4. Urinary tract infection. 5. Fevers, possibly related to urinary tract infection. 6. Questionable pneumonia. 7. History of bacteremia with Staph epi recently on 02/05/2020. This patient was seen in cardiac consultation. The patient's episode of hypoxemia may be related to either urinary tract infection or possibly to pulmonary infection, although the nursing staff indicates a scant amount of secretions pulmonary. She is saturating relatively postintubation and hopefully she will be able to wean. Result of COVID-19 testing is pending at this time. Once that is clarified, she may require repeat echocardiogram and further evaluation. Her cardiac enzymes will be repeated, but the chest x-ray is essentially unremarkable. Not sure that she has any hemodynamic instability from a cardiac point of view or sepsis. Her vital signs appeared to be relatively stable. She is not significantly tachycardic and she is not febrile today and her blood pressure appears to be normal. She is saturating 100% on 50% FiO2. Hope that she may be able to be weaned off once the results of the testing is available. Nothing to suggest that she has any congestive heart failure based on the evaluation on the chest x-ray. We will follow the patient along. Wilfredo Reyna M.D. DR: ABBE JOB#: [id number] CC:
--- NOTE | 2020-02-22 05:00 | NUR ---
NURSE NOTES: madelaine from microbiology reported covid-19 positive
--- NOTE | 2020-02-22 05:40 | NUR ---
NURSE NOTES: [facility] called and spoke with judit walls at [phone]
[2020-02-22] MEDS: NovoLOG Insulin Flexpen SUBQ SCH ×4 (05:45→21:37)
--- NOTE | 2020-02-22 06:00 | NUR ---
NURSE NOTES: Attempted to reach Dr. Long to inform him that patient resulted back as positive for to c-vid-19 virus. Spoke with urgent exchange. Awaiting reply. Patient continues to have elevated temp. Will administer tylenol 650mg and also re-attempt tp draw AM labs. Patient is retaining alot of fluids and is very swollen.
--- NOTE | 2020-02-22 06:52 | NUR ---
NURSE NOTES: Blood drawn and sent to the lab. Cooling measures on; covers off, ice packs on, partial bath with cool water.
--- NOTE | 2020-02-22 07:15 | NUR ---
HAND-OFF: Report given to NATHALIA Marquez.
[2020-02-22 07:32] LABS: BASOPHILS % (AUTO) 1.4 % (0.0-2.0); EOSINOPHILS % (AUTO) 0.3 % (0.0-3.0); HEMATOCRIT 31.9 % (37.0-47.0); HEMOGLOBIN 10.2 G/DL (12.0-16.0); MEAN CORPUSCULAR VOLUME 76 FL (80-99); MONOCYTES % (AUTO) 17.8 % (1.0-10.0); NEUTROPHILS % (AUTO) 63.6 % (45.0-75.0); PLATELET COUNT 159 K/UL (150-450); RED BLOOD COUNT 4.21 M/UL (4.20-5.40); RED CELL DISTRIBUTION WIDTH 15.9 % (11.6-14.8); WHITE BLOOD COUNT 6.1 K/UL (4.8-10.8)
[2020-02-22 07:57] LABS: ALANINE AMINOTRANSFERASE 35 U/L (12-78); ALBUMIN 3.3 G/DL (3.4-5.0); ALBUMIN/GLOBULIN RATIO 0.8 (1.0-2.7); ALKALINE PHOSPHATASE 354 U/L (46-116); ANION GAP 11 mmol/L (5-15); ASPARTATE AMINO TRANSFERASE 53 U/L (15-37); BLOOD UREA NITROGEN 53 mg/dL (7-18); CALCIUM 8.8 MG/DL (8.5-10.1); CARBON DIOXIDE 30 MMOL/L (21-32); CHLORIDE 96 MMOL/L (98-107); GAMMA GLUTAMYL TRANSPEPTIDASE 363 U/L (5-85); PHOSPHORUS 5.9 MG/DL (2.5-4.9); POTASSIUM 4.5 MMOL/L (3.5-5.1); SODIUM 137 MMOL/L (136-145)
--- NOTE | 2020-02-22 08:39 | Pulmonolgy Critical Care Note ---
Critical Care - Asmt/Plan Problems: (1) COVID-19 virus infection (2) Acute respiratory failure (3) Sepsis (4) ESRD (end stage renal disease) on dialysis (5) Accelerated hypertension (6) Decubital ulcer (7) Pacemaker (8) Diabetes (9) Blindness of both eyes (10) Morbid obesity (11) HTN (hypertension) Respiratory: monitor respiratory rate, adjust FIO2, CXR Cardiac: continue to monitor HR/BP Renal: F/U I&O, check electrolytes Infectious Disease: check cultures, continue antibiotics Gastrointestinal: continue feedings/current rate Endocrine: monitor blood sugar, check HgA1C, continue sliding scale insulin Hematologic: monitor H/H Neurologic: PRN Ativan Prophylaxis: Protonix Time Spent (Minutes): 30 Notes Reviewed: sales ambassador, cardio Discussed with: nurses, consultants, case therapistproposal development manager - Objective Last 24 Hour Vital Signs Date Time Temp Pulse Resp B/P (MAP) Pulse Ox O2 Delivery O2 Flow Rate FiO2 02/22/20 07:05 69 16 50 02/22/20 07:00 70 16 157/62 (93) 100 02/22/20 06:53 100.8 02/22/20 06:30 72 16 02/22/20 06:00 65 16 145/74 (97) 100 02/22/20 05:37 71 18 50 02/22/20 05:00 65 16 114/55 (74) 100 02/22/20 04:00 Mechanical Ventilator 02/22/20 04:00 100.8 62 16 107/51 (69) 100 02/22/20 04:00 50 02/22/20 03:15 72 16 50 02/22/20 03:01 63 02/22/20 03:00 61 16 125/60 (81) 100 02/22/20 02:00 67 16 109/44 (65) 100 02/22/20 01:00 75 16 145/63 (90) 100 02/22/20 00:00 100.5 69 16 128/56 (80) 100 02/22/20 00:00 Mechanical Ventilator 02/21/20 23:02 66 02/21/20 23:00 67 16 106/52 (70) 100 02/21/20 22:47 69 16 50 02/21/20 22:00 64 16 114/47 (69) 100 3/28/20 21:00 69 16 112/59 (76) 100 02/21/20 20:36 71 17 50 02/21/20 20:00 50 02/21/20 20:00 100.2 68 16 131/58 (82) 100 02/21/20 20:00 Mechanical Ventilator 02/21/20 19:08 70 02/21/20 19:00 68 16 133/49 (77) 100 02/21/20 18:45 71 16 50 02/21/20 18:00 64 16 134/50 (78) 100 02/21/20 17:11 61 18 50 02/21/20 17:00 67 16 130/49 (76) 100 02/21/20 16:00 Mechanical Ventilator 02/21/20 16:00 63 02/21/20 16:00 98.4 66 16 137/46 (76) 100 02/21/20 16:00 50 02/21/20 15:19 62 17 50 02/21/20 15:00 62 16 147/56 (86) 100 02/21/20 14:00 62 16 126/59 (81) 100 02/21/20 13:02 61 16 50 02/21/20 13:00 68 16 177/66 (103) 100 02/21/20 12:50 162/56 02/21/20 12:00 60 02/21/20 12:00 50 02/21/20 12:00 Mechanical Ventilator 02/21/20 12:00 61 16 153/60 (91) 100 02/21/20 11:07 60 16 50 02/21/20 11:00 63 17 150/58 (88) 100 02/21/20 10:00 62 16 143/55 (84) 100 02/21/20 09:10 60 16 50 02/21/20 09:00 67 16 156/44 (81) 100 02/21/20 08:57 61 143/72 Status: other - follows commands Condition: critical HEENT: atraumatic Neck: full ROM Heart: HR/BP stable Abdomen: soft, non-tender Extremities: no C/C/E Micro: Microbiology Date/Time Source Procedure Growth Status 02/20/20 08:20 Blood Blood Culture - Preliminary NO GROWTH AFTER 24 HOURS Resulted 02/20/20 08:20 Blood Blood Culture - Preliminary NO GROWTH AFTER 24 HOURS Resulted 02/20/20 17:30 Nasopharynx - Final Complete 02/20/20 17:30 Nasopharynx - Final Complete 02/20/20 09:35 Nasal Nares - Final Complete 02/20/20 09:35 Nasal Nares - Final Complete 02/20/20 09:30 Nasopharynx Coronavirus COVID-19 PCR ([facility]) - Final Complete 02/20/20 08:20 Nasal Nares Left MRSA Culture - Final NO METHICILLIN RESISTANT STAPH AUREUS... Complete 02/20/20 09:07 Urine,Clean Catch Urine Culture - Preliminary Yeast Species Resulted 02/20/20 08:20 Rectum Received Accucheck: 138 Critical Care - Subjective ROS Limited/Unobtainable: Yes Interval Events: pt tested positive for COVD virus FI02: 50 Vent Support Breath Rate: 16 Vent Support Mode: AC Vent Tidal Volume: 600 Sputum Amount: Small PEEP: 0.0 PIP: 27 Tube Feeding Amount: 35 I&O: Intake and Output 02/21/20 02/22/20 19:00 07:00 Intake Total 360 ml 560 ml Output Total 25 ml 20 ml Balance 335 ml 540 ml Intake IV Total 100 ml 55 ml Tube Feeding 210 ml 405 ml Other 50 ml 100 ml Output Urine Total 25 ml 20 ml # Bowel Movements 2 1 ET-Tube: 7.5 ET Position: 25 Labs: Laboratory Tests Test 02/21/20 11:45 02/21/20 15:00 02/22/20 04:00 White Blood Count 5.3 K/UL (4.8-10.8) 6.1 K/UL (4.8-10.8) Red Blood Count 4.54 M/UL (4.20-5.40) 4.21 M/UL (4.20-5.40) Hemoglobin 11.0 G/DL (12.0-16.0) L 10.2 G/DL (12.0-16.0) L Hematocrit 34.8 % (37.0-47.0) L 31.9 % (37.0-47.0) L Mean Corpuscular Volume 77 FL (80-99) L 76 FL (80-99) L Mean Corpuscular Hemoglobin 24.2 PG (27.0-31.0) L 24.2 PG (27.0-31.0) L Mean Corpuscular Hemoglobin Concent 31.6 G/DL (32.0-36.0) L 31.9 G/DL (32.0-36.0) L Red Cell Distribution Width 16.0 % (11.6-14.8) H 15.9 % (11.6-14.8) H Platelet Count 175 K/UL (150-450) # 159 K/UL (150-450) Mean Platelet Volume 6.3 FL (6.5-10.1) L 7.1 FL (6.5-10.1) Neutrophils (%) (Auto) % (45.0-75.0) 63.6 % (45.0-75.0) Lymphocytes (%) (Auto) % (20.0-45.0) 17.0 % (20.0-45.0) L Monocytes (%) (Auto) % (1.0-10.0) 17.8 % (1.0-10.0) H Eosinophils (%) (Auto) % (0.0-3.0) 0.3 % (0.0-3.0) Basophils (%) (Auto) % (0.0-2.0) 1.4 % (0.0-2.0) Differential Total Cells Counted 100 Neutrophils % (Manual) 55 % (45-75) Lymphocytes % (Manual) 25 % (20-45) Monocytes % (Manual) 20 % (1-10) H Eosinophils % (Manual) 0 % (0-3) Basophils % (Manual) 0 % (0-2) Band Neutrophils 0 % (0-8) Platelet Estimate Adequate Platelet Morphology Normal Hypochromasia 1+ Microcytosis 1+ Hemoglobin A1c 6.3 % (4.3-6.0) H Random Vancomycin Level 26.9 ug/mL 26.2 ug/mL Random Amikacin Level Pending Sodium Level 137 MMOL/L (136-145) Potassium Level 4.5 MMOL/L (3.5-5.1) Chloride Level 96 MMOL/L (98-107) L Carbon Dioxide Level 30 MMOL/L (21-32) Anion Gap 11 mmol/L (5-15) Blood Urea Nitrogen 53 mg/dL (7-18) H Creatinine 7.0 MG/DL (0.55-1.30) H Estimat Glomerular Filtration Rate 7.2 mL/min (>60) Glucose Level 139 MG/DL (74-106) H Uric Acid 5.2 MG/DL (2.6-7.2) Calcium Level 8.8 MG/DL (8.5-10.1) Phosphorus Level 5.9 MG/DL (2.5-4.9) H Magnesium Level 2.3 MG/DL (1.8-2.4) Total Bilirubin 1.0 MG/DL (0.2-1.0) Gamma Glutamyl Transpeptidase 363 U/L (5-85) H Aspartate Amino Transf (AST/SGOT) 53 U/L (15-37) H Alanine Aminotransferase (ALT/SGPT) 35 U/L (12-78) Alkaline Phosphatase 354 U/L (46-116) H C-Reactive Protein, Quantitative 5.5 mg/dL (0.00-0.90) H Pro-B-Type Natriuretic Peptide 99389 pg/mL (0-125) H Total Protein 7.5 G/DL (6.4-8.2) Albumin 3.3 G/DL (3.4-5.0) L Globulin 4.2 g/dL Albumin/Globulin Ratio 0.8 (1.0-2.7) L Meghana Murillo MD Feb 22, 2020 08:39
--- NOTE | 2020-02-22 08:45 | NUR ---
NURSE NOTES: Dr. Murillo made aware of the swab results for coronavirus, remains on ventilator setting of AC16, TV: 600, FIO2 50%. she remains saturating at 100% with no distress noted.
[2020-02-22] MEDS: Heparin 5000 units/ml inj SUBQ SCH ×2 (09:00→21:20)
--- NOTE | 2020-02-22 09:30 | NUR ---
NURSE NOTES: Dr. Hunter updated on patient renal status, updated on chemistry labs from this morning, no verbal orders given at this time.
[2020-02-22] MEDS: Pantoprazole Inj IVP SCH ×2 (09:43→21:19)
[2020-02-22] MEDS: Pyridoxine 50mg tab NG SCH (09:43)
[2020-02-22] MEDS: Thiamine 100mg tab NG SCH (09:43)
--- NOTE | 2020-02-22 10:02 | Nephrology Progress Note ---
Assessment/Plan Problem List: (1) Acute respiratory failure (2) ESRD (end stage renal disease) on dialysis (3) UTI (urinary tract infection) (4) Patient is Anglican (5) Pacemaker (6) Diabetes (7) Obesity (BMI 30-39.9) Assessment ARDS (adult respiratory distress syndrome) Fever Sepsis UTI (urinary tract infection) Respiratory failure, intubated on ventilator Thrombocytopenia Lymphopenia End stage renal disease on dialysis. Has a right upper arm dialysis fistula as Acces . Getting dialysis Sunday. morbid obesity Anemia / Jehova's witness CAD previous stent HTN- hypertensive urgency upon arrival to [facility]. s/p AVG DM 2 bilateral eye blindness h/o CHF Pacemaker Plan Plan: Patient positive for Covid 19 Per ID and pulmonary, ventilator adjustment Dialysis February 19 with ultrafiltration and low potassium bath done Next dialysis today February 21 EPO, thiamin and b6 via NG tube Phos binders diet to renal , medium CHO per consultants Remains full code at this time Subjective ROS Limited/Unobtainable: Yes Objective Objective Last 24 Hour Vital Signs Date Time Temp Pulse Resp B/P (MAP) Pulse Ox O2 Delivery O2 Flow Rate FiO2 02/22/20 09:00 72 116/37 02/22/20 07:05 69 16 50 02/22/20 07:00 70 16 157/62 (93) 100 02/22/20 06:53 100.8 02/22/20 06:30 72 16 02/22/20 06:00 65 16 145/74 (97) 100 02/22/20 05:37 71 18 50 02/22/20 05:00 65 16 114/55 (74) 100 02/22/20 04:00 Mechanical Ventilator 02/22/20 04:00 100.8 62 16 107/51 (69) 100 02/22/20 04:00 50 02/22/20 03:15 72 16 50 02/22/20 03:01 63 02/22/20 03:00 61 16 125/60 (81) 100 02/22/20 02:00 67 16 109/44 (65) 100 02/22/20 01:00 75 16 145/63 (90) 100 02/22/20 00:00 100.5 69 16 128/56 (80) 100 02/22/20 00:00 Mechanical Ventilator 02/21/20 23:02 66 3/28/20 23:00 67 16 106/52 (70) 100 02/21/20 22:47 69 16 50 02/21/20 22:00 64 16 114/47 (69) 100 02/21/20 21:00 69 16 112/59 (76) 100 02/21/20 20:36 71 17 50 02/21/20 20:00 50 02/21/20 20:00 100.2 68 16 131/58 (82) 100 02/21/20 20:00 Mechanical Ventilator 02/21/20 19:08 70 02/21/20 19:00 68 16 133/49 (77) 100 02/21/20 18:45 71 16 50 02/21/20 18:00 64 16 134/50 (78) 100 02/21/20 17:11 61 18 50 02/21/20 17:00 67 16 130/49 (76) 100 02/21/20 16:00 Mechanical Ventilator 02/21/20 16:00 63 02/21/20 16:00 98.4 66 16 137/46 (76) 100 02/21/20 16:00 50 02/21/20 15:19 62 17 50 02/21/20 15:00 62 16 147/56 (86) 100 02/21/20 14:00 62 16 126/59 (81) 100 02/21/20 13:02 61 16 50 02/21/20 13:00 68 16 177/66 (103) 100 02/21/20 12:50 162/56 02/21/20 12:00 60 02/21/20 12:00 50 02/21/20 12:00 Mechanical Ventilator 02/21/20 12:00 61 16 153/60 (91) 100 02/21/20 11:07 60 16 50 02/21/20 11:00 63 17 150/58 (88) 100 Intake and Output 02/21/20 02/22/20 19:00 07:00 Intake Total 360 ml 560 ml Output Total 25 ml 20 ml Balance 335 ml 540 ml Intake IV Total 100 ml 55 ml Tube Feeding 210 ml 405 ml Other 50 ml 100 ml Output Urine Total 25 ml 20 ml # Bowel Movements 2 1 Laboratory Tests 02/21/20 11:45: White Blood Count 5.3, Red Blood Count 4.54, Hemoglobin 11.0L, Hematocrit 34.8L , Mean Corpuscular Volume 77L, Mean Corpuscular Hemoglobin 24.2L, Mean Corpuscular Hemoglobin Concent 31.6L, Red Cell Distribution Width 16.0H, Platelet Count 175#, Mean Platelet Volume 6.3L, Neutrophils (%) (Auto) , Lymphocytes (%) (Auto) , Monocytes (%) (Auto) , Eosinophils (%) (Auto) , Basophils (%) (Auto) , Differential Total Cells Counted 100, Neutrophils % ( Manual) 55, Lymphocytes % (Manual) 25, Monocytes % (Manual) 20H, Eosinophils % ( Manual) 0, Basophils % (Manual) 0, Band Neutrophils 0, Platelet Estimate Adequate, Platelet Morphology Normal, Hypochromasia 1+, Microcytosis 1+, Hemoglobin A1c 6.3H, Random Vancomycin Level 26.9 02/21/20 15:00: Random Amikacin Level 8.3 02/22/20 04:00: White Blood Count 6.1, Red Blood Count 4.21, Hemoglobin 10.2L, Hematocrit 31.9L , Mean Corpuscular Volume 76L, Mean Corpuscular Hemoglobin 24.2L, Mean Corpuscular Hemoglobin Concent 31.9L, Red Cell Distribution Width 15.9H, Platelet Count 159, Mean Platelet Volume 7.1, Neutrophils (%) (Auto) 63.6, Lymphocytes (%) (Auto) 17.0L, Monocytes (%) (Auto) 17.8H, Eosinophils (%) (Auto ) 0.3, Basophils (%) (Auto) 1.4, Random Vancomycin Level 26.2, Sodium Level 137 , Potassium Level 4.5, Chloride Level 96L, Carbon Dioxide Level 30, Anion Gap 11 , Blood Urea Nitrogen 53H, Creatinine 7.0H, Estimat Glomerular Filtration Rate 7.2, Glucose Level 139H, Uric Acid 5.2, Calcium Level 8.8, Phosphorus Level 5.9H , Magnesium Level 2.3, Total Bilirubin 1.0, Gamma Glutamyl Transpeptidase 363H, Aspartate Amino Transf (AST/SGOT) 53H, Alanine Aminotransferase (ALT/SGPT) 35, Alkaline Phosphatase 354H, C-Reactive Protein, Quantitative 5.5H, Pro-B-Type Natriuretic Peptide 97570R, Total Protein 7.5, Albumin 3.3L, Globulin 4.2, Albumin/Globulin Ratio 0.8L Height (Feet): 5 Height (Inches): 7.00 Weight (Pounds): 247 General Appearance: no apparent distress Bryan Hunter MD Feb 22, 2020 10:02
--- NOTE | 2020-02-22 11:05 | NUR ---
NURSE NOTES: Patient repositioned and skin assessment provided. restraints are placed at bilateral wrist for safety and reaching towards ET-tube and NG-tube, hands are warm to the touch, pulses are present and palpable, skin remains intact. Tyler has urine with color of dark straw fluid present. tube feeding bottle changed and remains running at 35ml/hr.
[2020-02-22] MEDS: LORazepam Inj 2mg/ml 1ml IV PRN ×2 (11:07→18:24)
[2020-02-22] MEDS: Nitroglycerin Patch 0.4mg TDERMAL SCH (12:00)
--- NOTE | 2020-02-22 13:45 | NUR ---
NURSE NOTES: Dr. Reyna updated at the bedside, patient remains with Heart rate of a-paced and sinus rhythm. no verbal orders given at this time.
--- NOTE | 2020-02-22 14:34 | Cardiology Progress Note ---
Assessment/Plan Assessment/Plan 1. Respiratory failure. 2. History of obesity hypoventilation syndrome. 3. History of pulmonary hypertension previously. 4. Urinary tract infection. 5. covid 19 infection confimred 6. Questionable pneumonia. 7. History of bacteremia with Staph epi recently on 02/05/2020. i did not examine pt personally i did not feel the risk to me personally are worth the limited information that could be obtained while pt is not communicative and on a vent with confirmed covid 19 tele reviewed sinus hemodynamically still ok sat are fine no indication for hypoxemia to be concerning of worsening respiratory issues or developping chf as 30% of covid 19 pt can develop getting dialyuis now sats are 100% on 50% fio2 will repeat trop in am with other labs if checked holding off in ordering echo at this time Subjective ROS Limited/Unobtainable: Yes Objective Last 24 Hour Vital Signs Date Time Temp Pulse Resp B/P (MAP) Pulse Ox O2 Delivery O2 Flow Rate FiO2 02/22/20 13:00 79 16 180/88 (118) 100 02/22/20 12:48 79 17 50 02/22/20 12:00 50 02/22/20 12:00 100.2 78 17 159/74 (102) 100 02/22/20 12:00 159/100 02/22/20 12:00 77 02/22/20 12:00 Mechanical Ventilator 02/22/20 11:18 76 16 50 02/22/20 11:00 78 16 168/66 (100) 100 02/22/20 10:00 76 17 144/72 (96) 100 02/22/20 09:29 75 17 50 02/22/20 09:00 72 116/37 02/22/20 09:00 69 16 144/65 (91) 100 02/22/20 08:00 50 02/22/20 08:00 Mechanical Ventilator 02/22/20 08:00 67 02/22/20 08:00 100.2 66 16 136/55 (82) 100 02/22/20 07:05 69 16 50 02/22/20 07:00 70 16 157/62 (93) 100 02/22/20 06:53 100.8 02/22/20 06:30 72 16 02/22/20 06:00 65 16 145/74 (97) 100 3/29/20 05:37 71 18 50 02/22/20 05:00 65 16 114/55 (74) 100 02/22/20 04:00 Mechanical Ventilator 02/22/20 04:00 100.8 62 16 107/51 (69) 100 02/22/20 04:00 50 02/22/20 03:15 72 16 50 02/22/20 03:01 63 02/22/20 03:00 61 16 125/60 (81) 100 02/22/20 02:00 67 16 109/44 (65) 100 02/22/20 01:00 75 16 145/63 (90) 100 02/22/20 00:00 100.5 69 16 128/56 (80) 100 02/22/20 00:00 Mechanical Ventilator 02/21/20 23:02 66 02/21/20 23:00 67 16 106/52 (70) 100 02/21/20 22:47 69 16 50 02/21/20 22:00 64 16 114/47 (69) 100 02/21/20 21:00 69 16 112/59 (76) 100 02/21/20 20:36 71 17 50 02/21/20 20:00 50 02/21/20 20:00 100.2 68 16 131/58 (82) 100 02/21/20 20:00 Mechanical Ventilator 02/21/20 19:08 70 02/21/20 19:00 68 16 133/49 (77) 100 02/21/20 18:45 71 16 50 02/21/20 18:00 64 16 134/50 (78) 100 02/21/20 17:11 61 18 50 02/21/20 17:00 67 16 130/49 (76) 100 02/21/20 16:00 Mechanical Ventilator 02/21/20 16:00 63 02/21/20 16:00 98.4 66 16 137/46 (76) 100 02/21/20 16:00 50 02/21/20 15:19 62 17 50 02/21/20 15:00 62 16 147/56 (86) 100 General Appearance: no apparent distress, on vent, patient on isolation Intake and Output 02/21/20 02/22/20 19:00 07:00 Intake Total 360 ml 560 ml Output Total 25 ml 20 ml Balance 335 ml 540 ml IV Total 100 ml 55 ml Tube Feeding 210 ml 405 ml Other 50 ml 100 ml Output Urine Total 25 ml 20 ml # Bowel Movements 2 1 Laboratory Tests Test 02/21/20 15:00 02/22/20 04:00 Random Amikacin Level 8.3 MG/L White Blood Count 6.1 K/UL (4.8-10.8) Red Blood Count 4.21 M/UL (4.20-5.40) Hemoglobin 10.2 G/DL (12.0-16.0) L Hematocrit 31.9 % (37.0-47.0) L Mean Corpuscular Volume 76 FL (80-99) L Mean Corpuscular Hemoglobin 24.2 PG (27.0-31.0) L Mean Corpuscular Hemoglobin Concent 31.9 G/DL (32.0-36.0) L Red Cell Distribution Width 15.9 % (11.6-14.8) H Platelet Count 159 K/UL (150-450) Mean Platelet Volume 7.1 FL (6.5-10.1) Neutrophils (%) (Auto) 63.6 % (45.0-75.0) Lymphocytes (%) (Auto) 17.0 % (20.0-45.0) L Monocytes (%) (Auto) 17.8 % (1.0-10.0) H Eosinophils (%) (Auto) 0.3 % (0.0-3.0) Basophils (%) (Auto) 1.4 % (0.0-2.0) Sodium Level 137 MMOL/L (136-145) Potassium Level 4.5 MMOL/L (3.5-5.1) Chloride Level 96 MMOL/L (98-107) L Carbon Dioxide Level 30 MMOL/L (21-32) Anion Gap 11 mmol/L (5-15) Blood Urea Nitrogen 53 mg/dL (7-18) H Creatinine 7.0 MG/DL (0.55-1.30) H Estimat Glomerular Filtration Rate 7.2 mL/min (>60) Glucose Level 139 MG/DL (74-106) H Uric Acid 5.2 MG/DL (2.6-7.2) Calcium Level 8.8 MG/DL (8.5-10.1) Phosphorus Level 5.9 MG/DL (2.5-4.9) H Magnesium Level 2.3 MG/DL (1.8-2.4) Total Bilirubin 1.0 MG/DL (0.2-1.0) Gamma Glutamyl Transpeptidase 363 U/L (5-85) H Aspartate Amino Transf (AST/SGOT) 53 U/L (15-37) H Alanine Aminotransferase (ALT/SGPT) 35 U/L (12-78) Alkaline Phosphatase 354 U/L (46-116) H C-Reactive Protein, Quantitative 5.5 mg/dL (0.00-0.90) H Pro-B-Type Natriuretic Peptide 20830 pg/mL (0-125) H Total Protein 7.5 G/DL (6.4-8.2) Albumin 3.3 G/DL (3.4-5.0) L Globulin 4.2 g/dL Albumin/Globulin Ratio 0.8 (1.0-2.7) L Random Vancomycin Level 26.2 ug/mL Microbiology Date/Time Source Procedure Growth Status 02/20/20 08:20 Blood Blood Culture - Preliminary NO GROWTH AFTER 24 HOURS Resulted 02/20/20 08:20 Blood Blood Culture - Preliminary NO GROWTH AFTER 24 HOURS Resulted 02/20/20 17:30 Nasopharynx - Final Complete 02/20/20 17:30 Nasopharynx - Final Complete 02/20/20 09:35 Nasal Nares - Final Complete 02/20/20 09:35 Nasal Nares - Final Complete 02/20/20 09:30 Nasopharynx Coronavirus COVID-19 PCR ([facility]) - Final Complete 02/20/20 08:20 Nasal Nares Left MRSA Culture - Final NO METHICILLIN RESISTANT STAPH AUREUS... Complete 02/20/20 09:07 Urine,Clean Catch Urine Culture - Preliminary Yeast Species Resulted 02/20/20 08:20 Rectum VRE Culture - Final Enterococcus Faecalis - Vre Complete 02/20/20 08:20 Rectum - Final NO CARBAPENEM-RESISTANT ENTEROBACTERI... Complete Wilfredo Reyna MD Feb 22, 2020 14:34
--- NOTE | 2020-02-22 15:00 | NUR ---
NURSE NOTE: patient remains on hemodialysis with Bp of 162/75 with heart rate at 100%. lines placed on right upper arm. patient remains on ventilator with setting of AC16, TV: 600 and FIo2 at 50%. remains running tube feeding at 35ml/hr.
--- NOTE | 2020-02-22 17:35 | NUR ---
NURSE NOTES: Hemodialysis completed with 3L of fluid removed. tolerated procedure well, right upper arm shunt remains with thrill and bruit, no bleeding noted. patient remains on ventilator with settings of AC 16, TV: 600 and FIo2 50%. Tylenol administered for fever
[2020-02-22] MEDS ORDERED: NS 275ml ONE (17:45)
[2020-02-22] MEDS ORDERED: Sterile Water Irrig 1000ml IRRIG ONE (17:45)
--- NOTE | 2020-02-22 18:35 | NUR ---
NURSE NOTES: Ativan administered due to patient having episodes of restlessness remains on restraint for reaching towards ET-tube and NG-tube, hands remains warm and pink. pulses are present distally ice packs placed on patient chest and abdomen,
--- NOTE | 2020-02-22 19:25 | NUR ---
HAND-OFF: Report given to NATHALIA Toth.
--- NOTE | 2020-02-22 19:25 | NUR ---
NURSE NOTES: Received patient from NATHALIA Marquez. Will continue plan of care.
--- NOTE | 2020-02-22 19:55 | NUR ---
NURSE NOTES: Patient is awake and alert with eyes tracking. Is intubated with ETT 7.5 @ 25cm to the right side lipline to vent with settings of AC:16, TV:600, FiO2:50%, O2:100%. Current BP:110/56, HR:92. On NGT feeding of Nephro @ 35ml/hr. Tyler catheter noted and draining scan amount of urine. Bilateral wrist restraint on for safety. Bed low, locked and alarm is on. Will continue plan of care. Temperature been increasing since last night and into the day, cooling measures remains on- tylenol also given as ordered. Will keep a monitor. Adam Garcia called for updates, updates given.
[2020-02-22] MEDS ORDERED: Amikacin 500 MG in NS 110 ML IV SCH (21:00)
[2020-02-22] MEDS: Ertapenem 500mg ivpb (q24h) IV SCH ×2 (21:19)
--- NOTE | 2020-02-22 22:00 | NUR ---
NURSE NOTES: Patient is awake and alert x2. Able to follow simple commands and eyes track. Temp remains elevated, currently at 101.9F axillary. Tylenol 650mg PRN given again, cooling measures in place. Safety measures on; bilateral soft wrist restraints to prevent from pulling medical devices. ROM performed and skin assessed. Bed low, locked and alarm is on. Will continue to monitor.
[2020-02-23] VITALS (24 sets, daily range): BP systolic 98–190; BP diastolic 44–102
--- NOTE | 2020-02-23 | NUR ---
NURSE NOTES: Temperature will remains high. Current temp 101.8F axillary. Cooling measures still placed. Will place cooling blanket and administer tylenol when order is due. Otherwise patient is resting comfortably.
--- NOTE | 2020-02-23 02:00 | NUR ---
NURSE NOTES: No changes in patient's condition; she is resting comfortably in bed and able top re-adust and reposition herself. Current BP:129/59, HR:70, O2:100%. Will monitor.
--- NOTE | 2020-02-23 04:00 | NUR ---
NURSE NOTES: No changes in patient condition. Patient is asleep showing no signs of pain or distress. Current BP:134/63, HR:68, O2:100% remaining and tolerating the same vent settings. Safety measures in place. Will continue to monitor
[2020-02-23] MEDS: NovoLOG Insulin Flexpen SUBQ SCH ×4 (05:40→21:55)
--- NOTE | 2020-02-23 06:00 | NUR ---
NURSE NOTES: Cool bed bath given, new ice packs placed, cooling blanket placed. Temp decreased to 101.4F axillary. Safety measures in place.
--- NOTE | 2020-02-23 07:19 | NUR ---
HAND-OFF: Report given to NATHALIA Jernigan.
--- NOTE | 2020-02-23 07:20 | NUR ---
NURSE NOTES: Received patient form NATHALIA Toth. Patient vital signs stable at this time. Patient has had fever overnight per NATHALIA Toth. Temperature now 99.7 per rectal probe/cooling blanket. Cooling blanket on and cooling measures in place. Last Tylenol given at 0541. Will continue to monitor and administer medication as needed. Patient tested positive for Covid-19. Patient on airborne isolation. patient reported to be alert to name, but confused to time, place and purpose. Patient able to follow commands. Patient legally blind. Patient shifting in the bed at this time but no sign of acute distress. Bilateral soft wrist restraint in place at this time due impulsive behavior and patient witnessed attempting to reach for the ET tube. Patient intubated with size 7.5 ET tube and 25cm at the lip line. Et tube verified with x-ray and auscultation. Bilateral chest rise/fall noted. Patient on ventilator setting with AC 16, tidal volume 600, FiO2 50%, and PEEP 0. Patient has nasal gastric tube noted in right nares that is patent, asymptomatic, and running Nepro at 35mL/hr at this time. No residual noted at this time. Will continue to monitor. Patient has sotelo for urine retention but patient oliguric at this time. Patient has right upper arm AV shunt with intact thrill/bruit. Last hemodialysis done yesterday. No order for dialysis today. Patient bed in low position with bed alarm on and call light in reach at this time. Patient repositioned and oral care done at this time. Addendum: 02/23/20 at 1354 by Rere Powell RN left upper arm 22 gauge peripheral IV noted, patent and asymptomatic and saline locked. Left hand 22 gauge peripheral IV noted, patent and asymptomatic, and saline locked.
--- NOTE | 2020-02-23 09:32 | Pulmonolgy Critical Care Note ---
Critical Care - Asmt/Plan Problems: (1) COVID-19 virus infection (2) Acute respiratory failure (3) Sepsis (4) ESRD (end stage renal disease) on dialysis (5) Accelerated hypertension (6) Decubital ulcer (7) Pacemaker (8) Diabetes (9) Blindness of both eyes (10) Morbid obesity (11) HTN (hypertension) Respiratory: monitor respiratory rate, adjust FIO2, CXR Cardiac: continue to monitor HR/BP Renal: F/U I&O, keep IV fluid, check electrolytes Infectious Disease: check cultures Gastrointestinal: continue feedings/current rate Endocrine: monitor blood sugar, continue sliding scale insulin Hematologic: monitor H/H, transfuse if hgb<8.5 Neurologic: PRN Ativan, keep patient comfortable Prophylaxis: Protonix Disposition: keep in ICU Notes Reviewed: golf ball marker, renal Discussed with: consultants, case packermanager studio - Objective Last 24 Hour Vital Signs Date Time Temp Pulse Resp B/P (MAP) Pulse Ox O2 Delivery O2 Flow Rate FiO2 02/23/20 08:00 50 02/23/20 08:00 Mechanical Ventilator 02/23/20 08:00 99.7 64 16 125/50 (75) 100 02/23/20 07:00 76 17 136/55 (82) 100 02/23/20 07:00 75 16 50 02/23/20 06:30 76 16 02/23/20 06:11 101.4 02/23/20 06:00 101.4 69 16 145/67 (93) 100 02/23/20 05:34 87 18 50 02/23/20 05:00 72 17 118/101 (107) 100 02/23/20 04:00 50 02/23/20 04:00 Mechanical Ventilator 02/23/20 04:00 102.0 71 16 134/63 (86) 100 02/23/20 03:54 65 02/23/20 03:00 72 16 127/56 (79) 100 02/23/20 02:45 89 18 50 02/23/20 02:00 73 16 119/57 (77) 100 02/23/20 01:15 90 16 50 02/23/20 01:00 77 16 125/59 (81) 100 02/23/20 00:00 Mechanical Ventilator 02/23/20 00:00 101.8 70 16 136/48 (77) 100 02/22/20 23:30 85 16 50 02/22/20 23:19 68 02/22/20 23:00 71 16 137/62 (87) 100 02/22/20 22:20 86 19 50 02/22/20 22:00 78 17 116/56 (76) 100 02/22/20 21:00 86 16 158/48 (84) 100 02/22/20 20:00 50 02/22/20 20:00 Mechanical Ventilator 02/22/20 20:00 101.9 86 16 111/55 (73) 100 02/22/20 19:13 89 02/22/20 19:00 88 16 111/55 (73) 100 02/22/20 18:51 84 18 50 02/22/20 18:00 90 16 114/62 (79) 100 02/22/20 17:00 88 17 147/61 (89) 100 02/22/20 16:39 91 16 50 02/22/20 16:00 50 02/22/20 16:00 101.2 82 17 153/75 (101) 100 02/22/20 16:00 76 02/22/20 16:00 Mechanical Ventilator 02/22/20 15:00 75 16 162/75 (104) 100 02/22/20 14:00 77 16 124/82 (96) 100 02/22/20 13:00 79 16 180/88 (118) 100 02/22/20 12:48 79 17 50 02/22/20 12:00 50 02/22/20 12:00 100.2 78 17 159/74 (102) 100 02/22/20 12:00 159/100 02/22/20 12:00 77 02/22/20 12:00 Mechanical Ventilator 02/22/20 11:18 76 16 50 02/22/20 11:00 78 16 168/66 (100) 100 02/22/20 10:00 76 17 144/72 (96) 100 Status: awake Condition: critical HEENT: atraumatic Lungs: clear Heart: HR/BP stable Abdomen: soft, feeding tube Extremities: edema Decubiti: location Micro: Microbiology Date/Time Source Procedure Growth Status 02/20/20 17:30 Nasopharynx - Final Complete 02/20/20 17:30 Nasopharynx - Final Complete 02/20/20 09:35 Nasal Nares - Final Complete 02/20/20 09:35 Nasal Nares - Final Complete Accucheck: 153 Critical Care - Subjective ROS Limited/Unobtainable: No Condition: critical EKG Rhythm: Sinus Rhythm FI02: 50 Vent Support Breath Rate: 16 Vent Support Mode: AC Vent Tidal Volume: 600 Sputum Amount: Small PEEP: 0.0 PIP: 25 Tube Feeding Amount: 35 I&O: Intake and Output 02/22/20 02/23/20 19:00 07:00 Intake Total 595 ml 605 ml Output Total 15 ml 25 ml Balance 580 ml 580 ml Intake Free Water 155 ml IV Total 55 ml Tube Feeding 420 ml 420 ml Other 20 ml 130 ml Output Urine Total 15 ml 25 ml # Bowel Movements 1 CXR: pending ET-Tube: 7.5 ET Position: 25 Meghana Murillo MD Feb 23, 2020 09:32
[2020-02-23] MEDS: Thiamine 100mg tab NG SCH (09:37)
[2020-02-23] MEDS: Pantoprazole Inj IVP SCH ×2 (09:37→21:41)
[2020-02-23] MEDS: Acetaminophen 650mg/20.3ml GT PRN ×3 (09:38→21:41)
[2020-02-23] MEDS: Pyridoxine 50mg tab NG SCH (09:38)
[2020-02-23] MEDS: Heparin 5000 units/ml inj SUBQ SCH ×2 (09:41→21:42)
--- NOTE | 2020-02-23 10:00 | NUR ---
NURSE NOTES: Temp 97.6 rectal. Cooling blanket turned off at this time. Will continue to monitor axillary and rectal temp. Vital signs stable. Patient restless/anxious at this time and attempting to speak around the ET tube. Therapeutic communication used to calm her down. Patient appears confused and not following commands at this time. Ativan PRN given as ordered. Will continue to monitor.
[2020-02-23] MEDS: LORazepam Inj 2mg/ml 1ml IV PRN (10:16)
--- NOTE | 2020-02-23 10:53 | Nephrology Progress Note ---
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 Has a right upper arm dialysis fistula as Acces . Getting dialysis Sunday. morbid obesity Anemia / Jehova's witness CAD previous stent HTN- hypertensive urgency upon arrival to [facility]. s/p AVG DM 2 bilateral eye blindness h/o CHF Pacemaker Plan Patient positive for Covid 19 Per ID and pulmonary, ventilator adjustment Dialyzed again on February 21 and 4 L ultrafiltration done Waiting for today's labs EPO, thiamin and b6 via NG tube Phos binders NGT feeding per consultants Remains full code at this time Subjective ROS Limited/Unobtainable: Yes Objective Objective Last 24 Hour Vital Signs Date Time Temp Pulse Resp B/P (MAP) Pulse Ox O2 Delivery O2 Flow Rate FiO2 02/23/20 09:37 64 125/50 02/23/20 09:00 75 16 50 02/23/20 08:00 50 02/23/20 08:00 Mechanical Ventilator 02/23/20 08:00 99.7 64 16 125/50 (75) 100 02/23/20 07:00 76 17 136/55 (82) 100 02/23/20 07:00 75 16 50 02/23/20 06:30 76 16 02/23/20 06:11 101.4 02/23/20 06:00 101.4 69 16 145/67 (93) 100 02/23/20 05:34 87 18 50 02/23/20 05:00 72 17 118/101 (107) 100 02/23/20 04:00 50 02/23/20 04:00 Mechanical Ventilator 02/23/20 04:00 102.0 71 16 134/63 (86) 100 02/23/20 03:54 65 02/23/20 03:00 72 16 127/56 (79) 100 02/23/20 02:45 89 18 50 02/23/20 02:00 73 16 119/57 (77) 100 02/23/20 01:15 90 16 50 02/23/20 01:00 77 16 125/59 (81) 100 02/23/20 00:00 Mechanical Ventilator 02/23/20 00:00 101.8 70 16 136/48 (77) 100 02/22/20 23:30 85 16 50 02/22/20 23:19 68 02/22/20 23:00 71 16 137/62 (87) 100 02/22/20 22:20 86 19 50 02/22/20 22:00 78 17 116/56 (76) 100 02/22/20 21:00 86 16 158/48 (84) 100 02/22/20 20:00 50 02/22/20 20:00 Mechanical Ventilator 02/22/20 20:00 101.9 86 16 111/55 (73) 100 02/22/20 19:13 89 02/22/20 19:00 88 16 111/55 (73) 100 02/22/20 18:51 84 18 50 02/22/20 18:00 90 16 114/62 (79) 100 02/22/20 17:00 88 17 147/61 (89) 100 02/22/20 16:39 91 16 50 02/22/20 16:00 50 02/22/20 16:00 101.2 82 17 153/75 (101) 100 02/22/20 16:00 76 02/22/20 16:00 Mechanical Ventilator 02/22/20 15:00 75 16 162/75 (104) 100 02/22/20 14:00 77 16 124/82 (96) 100 02/22/20 13:00 79 16 180/88 (118) 100 02/22/20 12:48 79 17 50 02/22/20 12:00 50 02/22/20 12:00 100.2 78 17 159/74 (102) 100 02/22/20 12:00 159/100 02/22/20 12:00 77 02/22/20 12:00 Mechanical Ventilator 02/22/20 11:18 76 16 50 02/22/20 11:00 78 16 168/66 (100) 100 Intake and Output 02/22/20 02/23/20 19:00 07:00 Intake Total 595 ml 605 ml Output Total 15 ml 25 ml Balance 580 ml 580 ml Intake Free Water 155 ml IV Total 55 ml Tube Feeding 420 ml 420 ml Other 20 ml 130 ml Output Urine Total 15 ml 25 ml # Bowel Movements 1 Today's labs are pending Height (Feet): 5 Height (Inches): 7.00 Weight (Pounds): 247 General Appearance: no apparent distress EENT: other - Remains intubated and vented Cardiovascular: normal rate Bryan Hunter MD Feb 23, 2020 10:53
[2020-02-23] MEDS: Nitroglycerin Patch 0.4mg TDERMAL SCH (11:49)
--- NOTE | 2020-02-23 12:00 | NUR ---
NURSE NOTES: Patient vital signs stable at this time. Axillary temp 98.9. Will continue to monitor. Cooling blanket remains off at this time. Patient sleeping at this time with no sign of acute distress. Bilateral soft wrist restraint in place at this time as patient witnessed reaching for the ET tube when restraint momentarily removed during repositioning. Patient intubated with size 7.5 ET tube and 25cm at the lip line. Patient on ventilator setting with AC 16, tidal volume 600, FiO2 40%, and PEEP 0. Nasal gastric tube in right nares patent, asymptomatic, and running Nepro at 35mL/hr at this time. No residual noted at this time. Will continue to monitor. Tyler for urine retention remains patent and draining. Right upper arm AV shunt intact thrill/bruit. Old AV shunt noted on left upper arm. left upper arm 22 gauge peripheral IV remains patent and asymptomatic and saline locked. Left hand 22 gauge peripheral IV remains patent and asymptomatic, and saline locked. Patient bed in low position with bed alarm on and call light in reach at this time. Patient repositioned and oral care done at this time.
[2020-02-23 13:10] LABS: HEMATOCRIT 35.6 % (37.0-47.0); MEAN CORPUSCULAR VOLUME 77 FL (80-99); PLATELET COUNT 146 K/UL (150-450); RED BLOOD COUNT 4.65 M/UL (4.20-5.40); RED CELL DISTRIBUTION WIDTH 15.1 % (11.6-14.8); WHITE BLOOD COUNT 5.5 K/UL (4.8-10.8)
[2020-02-23 13:18] LABS: ANION GAP 14 mmol/L (5-15); BLOOD UREA NITROGEN 52 mg/dL (7-18); CALCIUM 9.3 MG/DL (8.5-10.1); CARBON DIOXIDE 31 MMOL/L (21-32); CHLORIDE 99 MMOL/L (98-107); CREATININE 6.9 MG/DL (0.55-1.30); POTASSIUM 4.1 MMOL/L (3.5-5.1); SODIUM 144 MMOL/L (136-145)
[2020-02-23 13:29] LABS: ALANINE AMINOTRANSFERASE 47 U/L (12-78); ALBUMIN 3.4 G/DL (3.4-5.0); ALBUMIN/GLOBULIN RATIO 0.7 (1.0-2.7); ALKALINE PHOSPHATASE 395 U/L (46-116); ASPARTATE AMINO TRANSFERASE 63 U/L (15-37); BILIRUBIN,TOTAL 0.9 MG/DL (0.2-1.0); PHOSPHORUS 5.7 MG/DL (2.5-4.9)
--- NOTE | 2020-02-23 14:00 | NUR ---
NURSE NOTES: Vital signs stable. Rectal temp 97.5. Cooling blanket remains off. No sign of acute distress. Patient repositioned. Will continue to monitor.
--- NOTE | 2020-02-23 14:57 | Infectious Diseases Prog Note ---
Assessment/Plan Assessment/Plan ASSESSMENT: The patient is a 64-year-old female with COVID-19. SARS-CoV PCR positive. Pneum Fever No leukocytosis -02/20 CXR: Mild pulmonary vascular congestion with subtle bilateral haziness , not significantly changed.Possible tiny pleural effusions. Cardiomegaly. -Bcx p -sp cx p Less likely UTI u/a wbc tnct, nit +, leuk +3; ucx cindy(colonizer) Hx of positive blood culture CONS ,persistent 02/04 BCx: CoNS 01/30 Bc: (1/2)CoNS and Citrobacter 01/27 , 02/01 Bc: CoNS - (outside facility, # of the +ve cultures are not clear) A 2D echo from outside facility did not show any evidence of vegetation as per Carido pt is high risk for CLAY: ( last admission ) Diabetes. CHF. ESRD. Hypertension. Obesity. PLAN: cont Amikacin, Ertap #4...likely deescalate soon but will f/u sp cx continue the patient on vancomycin, day # ? ( will Rx for probable SBE) Monitor CBC. Monitor BMP. Monitor cultures (blood, Sp ) Airborne. Contact plus Isolation DW RN Subjective Allergies: Coded Allergies: NO KNOWN ALLERGIES (Unverified Allergy, Unknown, 10/15/15) Subjective Tmax 101 FiO2 40% thick minimal secretions no levophed Objective Vital Signs Last 24 Hour Vital Signs Date Time Temp Pulse Resp B/P (MAP) Pulse Ox O2 Delivery O2 Flow Rate FiO2 02/23/20 14:00 62 16 139/67 (91) 100 02/23/20 13:00 68 18 50 02/23/20 13:00 98.9 61 16 118/69 (85) 100 02/23/20 12:00 Mechanical Ventilator 02/23/20 12:00 61 02/23/20 12:00 98.9 60 16 140/67 (91) 100 02/23/20 11:49 155/57 02/23/20 11:39 40 02/23/20 11:12 63 16 50 02/23/20 11:00 66 16 148/66 (93) 100 02/23/20 11:00 97.6 02/23/20 10:00 72 17 190/68 (108) 100 02/23/20 09:37 64 125/50 02/23/20 09:00 70 16 135/102 (113) 100 02/23/20 09:00 75 16 50 02/23/20 08:00 78 02/23/20 08:00 50 02/23/20 08:00 Mechanical Ventilator 02/23/20 08:00 99.7 64 16 125/50 (75) 100 02/23/20 07:00 76 17 136/55 (82) 100 02/23/20 07:00 75 16 50 02/23/20 06:30 76 16 02/23/20 06:11 101.4 02/23/20 06:00 101.4 69 16 145/67 (93) 100 02/23/20 05:34 87 18 50 02/23/20 05:00 72 17 118/101 (107) 100 02/23/20 04:00 50 02/23/20 04:00 Mechanical Ventilator 02/23/20 04:00 102.0 71 16 134/63 (86) 100 02/23/20 03:54 65 02/23/20 03:00 72 16 127/56 (79) 100 02/23/20 02:45 89 18 50 02/23/20 02:00 73 16 119/57 (77) 100 02/23/20 01:15 90 16 50 02/23/20 01:00 77 16 125/59 (81) 100 02/23/20 00:00 Mechanical Ventilator 02/23/20 00:00 101.8 70 16 136/48 (77) 100 02/22/20 23:30 85 16 50 02/22/20 23:19 68 02/22/20 23:00 71 16 137/62 (87) 100 02/22/20 22:20 86 19 50 02/22/20 22:00 78 17 116/56 (76) 100 02/22/20 21:00 86 16 158/48 (84) 100 02/22/20 20:00 50 02/22/20 20:00 Mechanical Ventilator 02/22/20 20:00 101.9 86 16 111/55 (73) 100 02/22/20 19:13 89 02/22/20 19:00 88 16 111/55 (73) 100 02/22/20 18:51 84 18 50 02/22/20 18:00 90 16 114/62 (79) 100 3/29/20 17:00 88 17 147/61 (89) 100 02/22/20 16:39 91 16 50 02/22/20 16:00 50 02/22/20 16:00 101.2 82 17 153/75 (101) 100 02/22/20 16:00 76 02/22/20 16:00 Mechanical Ventilator 02/22/20 15:00 75 16 162/75 (104) 100 Height (Feet): 5 Height (Inches): 7.00 Weight (Pounds): 247 General Appearance: no acute distress HEENT: normocephalic, atraumatic Respiratory/Chest: no respiratory distress, no accessory muscle use Abdomen: non distended Neurologic/Psychiatric: other - sedated Microbiology Date/Time Source Procedure Growth Status 02/20/20 17:30 Nasopharynx - Final Complete 02/20/20 17:30 Nasopharynx - Final Complete Laboratory Tests Test 02/23/20 12:30 White Blood Count 5.5 K/UL (4.8-10.8) Red Blood Count 4.65 M/UL (4.20-5.40) Hemoglobin 11.0 G/DL (12.0-16.0) L Hematocrit 35.6 % (37.0-47.0) L Mean Corpuscular Volume 77 FL (80-99) L Mean Corpuscular Hemoglobin 23.7 PG (27.0-31.0) L Mean Corpuscular Hemoglobin Concent 31.0 G/DL (32.0-36.0) L Red Cell Distribution Width 15.1 % (11.6-14.8) H Platelet Count 146 K/UL (150-450) L Mean Platelet Volume 7.9 FL (6.5-10.1) Neutrophils (%) (Auto) % (45.0-75.0) Lymphocytes (%) (Auto) % (20.0-45.0) Monocytes (%) (Auto) % (1.0-10.0) Eosinophils (%) (Auto) % (0.0-3.0) Basophils (%) (Auto) % (0.0-2.0) Differential Total Cells Counted 100 Neutrophils % (Manual) 57 % (45-75) Lymphocytes % (Manual) 17 % (20-45) L Monocytes % (Manual) 23 % (1-10) H Eosinophils % (Manual) 0 % (0-3) Basophils % (Manual) 0 % (0-2) Band Neutrophils 3 % (0-8) Platelet Estimate Decreased L Platelet Morphology Normal Hypochromasia 1+ Anisocytosis 1+ Microcytosis 1+ Sodium Level 144 MMOL/L (136-145) Potassium Level 4.1 MMOL/L (3.5-5.1) Chloride Level 99 MMOL/L (98-107) Carbon Dioxide Level 31 MMOL/L (21-32) Anion Gap 14 mmol/L (5-15) Blood Urea Nitrogen 52 mg/dL (7-18) H Creatinine 6.9 MG/DL (0.55-1.30) H Estimat Glomerular Filtration Rate 7.4 mL/min (>60) Glucose Level 161 MG/DL (74-106) H Calcium Level 9.3 MG/DL (8.5-10.1) Phosphorus Level 5.7 MG/DL (2.5-4.9) H Magnesium Level 2.5 MG/DL (1.8-2.4) H Total Bilirubin 0.9 MG/DL (0.2-1.0) Aspartate Amino Transf (AST/SGOT) 63 U/L (15-37) H Alanine Aminotransferase (ALT/SGPT) 47 U/L (12-78) Alkaline Phosphatase 395 U/L (46-116) H C-Reactive Protein, Quantitative 6.5 mg/dL (0.00-0.90) H Pro-B-Type Natriuretic Peptide 28017 pg/mL (0-125) H Total Protein 8.1 G/DL (6.4-8.2) Albumin 3.4 G/DL (3.4-5.0) Globulin 4.7 g/dL Albumin/Globulin Ratio 0.7 (1.0-2.7) L Current Medications Medications (Trade) Dose Ordered Sig/Josi Route PRN Reason Start Time Stop Time Status Last Admin Dose Admin Acetaminophen (Tylenol) 650 mg Q4H PRN GT fever 02/23/20 07:45 03/21/20 08:59 02/23/20 09:38 Albuterol/ Ipratropium (Combivent Respimat) 1 puffs Q4H PRN INH Shortness of Breath 02/23/20 10:00 03/24/20 09:59 Amikacin Protocol (Amikacin pharmacy to dose) 1 ea DAILY PRN MISC Per rx protocol 02/21/20 14:30 03/22/20 14:29 Amlodipine Besylate (Norvasc) 10 mg DAILY NG 02/21/20 09:00 03/22/20 08:59 02/23/20 09:37 Atorvastatin Calcium (Lipitor) 10 mg BEDTIME NG 02/20/20 21:00 05/20/20 20:59 02/22/20 21:19 Epoetin Jose De Jesus (Epoetin Jose De Jesus(ESRD on dialysis)) 10,000 unit SUN-SUN-SUN SUBQ 02/20/20 21:00 05/20/20 20:59 02/20/20 20:36 Ertapenem 0.5 gm/ Sodium Chloride 55 ml @ 110 mls/hr Q24H IV 02/20/20 20:00 02/25/20 19:59 02/22/20 21:19 Heparin Sodium (Porcine) (Heparin 5000 units/ml) 5,000 units EVERY 12 HOURS SUBQ 02/20/20 21:00 04/05/20 20:59 02/23/20 09:41 Hydralazine HCl (Apresoline) 10 mg Q4H PRN IV Blood pressure over 160 systol 02/20/20 12:45 05/20/20 12:44 02/20/20 20:54 Insulin Aspart (NovoLOG) BEFORE MEALS AND HS SUBQ 02/20/20 12:30 05/20/20 12:29 02/23/20 11:30 Labetalol HCl (Normodyne) 20 mg EVERY HOUR PRN IV sbp more than 180mmHg 02/20/20 11:00 03/21/20 10:59 02/21/20 01:25 Lorazepam (Ativan 2mg/ml 1ml) 2 mg Q2H PRN IV For Anxiety 02/20/20 09:00 02/27/20 08:59 02/23/20 10:16 Morphine Sulfate (Morphine Sulfate) 4 mg Q4H PRN IVP Severe Pain (Pain Scale 7-10) 02/20/20 09:00 02/27/20 08:59 Nitroglycerin (Ntg) 1 patch Q24H TDERMAL 02/21/20 12:00 03/22/20 11:59 02/23/20 11:49 Ondansetron HCl (Zofran) 4 mg Q6H PRN IVP Nausea & Vomiting 02/20/20 09:00 03/21/20 08:59 Pantoprazole (Protonix) 40 mg Q12HR IVP 02/20/20 21:00 03/21/20 11:59 02/23/20 09:37 Pyridoxine HCl (Vitamin B6) 50 mg DAILY NG 02/21/20 09:00 03/22/20 08:59 02/23/20 09:38 Thiamine HCl (Vitamin B1) 100 mg DAILY NG 02/21/20 09:00 03/22/20 08:59 02/23/20 09:37 Vancomycin HCl (Vanco rx to dose) 1 ea DAILY PRN MISC . 02/20/20 11:15 03/21/20 11:14 Clarice Nicolas MD Feb 23, 2020 14:57
--- NOTE | 2020-02-23 15:03 | NUR ---
Social Work This SW followed up with patient who is currently intubated in the ICU. Chart reviewed. This SW left a message for son, Jose Frias ([phone]) who is is the contact for patient. Patient does not have an Advance Directive, while continues to be remain full code, full treatment at this time. Pending progress. SW to follow for emotional support and end of life decision (as needed). Pending return call from son to determine any changes or needs present. Patient [facility] [place] [facility].
--- NOTE | 2020-02-23 16:00 | NUR ---
NURSE NOTES: Patient vital signs stable at this time. Axillary temp 98.8. Will continue to monitor. Cooling blanket remains off at this time. Patient sleeping at this time with no sign of acute distress. Bilateral soft wrist restraint in place at this time as patient witnessed reaching for the ET tube when restraint momentarily removed during repositioning. Patient intubated with size 7.5 ET tube and 25cm at the lip line. Patient on ventilator setting with AC 16, tidal volume 600, FiO2 30%, and PEEP 0. Nasal gastric tube in right nares patent, asymptomatic, and running Nepro at 35mL/hr at this time. No residual noted at this time. Will continue to monitor. Tyler for urine retention remains patent and draining. Right upper arm AV shunt intact thrill/bruit. Old AV shunt noted on left upper arm. left upper arm 22 gauge peripheral IV remains patent and asymptomatic and saline locked. Left hand 22 gauge peripheral IV remains patent and asymptomatic, and saline locked. Patient bed in low position with bed alarm on and call light in reach at this time. Patient repositioned and oral care done at this time.
--- NOTE | 2020-02-23 18:00 | NUR ---
NURSE NOTES: Vital signs stable. Rectal temp 98.7. Cooling blanket remains off. No sign of acute distress. Patient repositioned and bed bath performed. Will continue to monitor.
[2020-02-23] MEDS ORDERED: VANCOMYCIN500 MG/100 IV (18:42)
[2020-02-23] MEDS ORDERED: BENADRYL25 MG ORAL (18:42)
[2020-02-23] MEDS ORDERED: VITAMIN C250 MG ORAL (19:06)
[2020-02-23] MEDS ORDERED: NORCO 5-325 TA1 EAC1 ORAL (19:06)
[2020-02-23] MEDS ORDERED: ACIDOPHILUS1 EAC6 PO (19:06)
[2020-02-23] MEDS ORDERED: ZINC50 MG ORAL (19:06)
[2020-02-23] MEDS ORDERED: NORCO 10-325 T1 EACH ORAL (19:06)
--- NOTE | 2020-02-23 19:34 | NUR ---
HAND-OFF: Report given to NATHALIA Toth. Blood pressure trending down at this time. Endorsed to follow up. Updated Dr Reyna when he rounded on patient. He reported concern regarding the blood pressure and reported that he would input orders. Reported that the blood pressure started to drop after the morphine was given for patient's reported pain. Dr Reyna reported that he would place an order for a different medication for pain. Notified NATHALIA Toth. Endorsed to follow up.
--- NOTE | 2020-02-23 19:35 | NUR ---
NURSE NOTES: Received patient from NATHALIA Jernigan. Will continue plan of care.
--- NOTE | 2020-02-23 19:38 | Cardiology Progress Note ---
Assessment/Plan Assessment/Plan 1. Respiratory failure. 2. History of obesity hypoventilation syndrome. 3. History of pulmonary hypertension previously. 4. Urinary tract infection. 5. covid 19 infection confimred 6. Questionable pneumonia. 7. History of bacteremia with Staph epi recently on 02/05/2020. i did not examine pt personally i did not feel the risk to me personally are worth the limited information that could be obtained while pt is not communicative and on a vent with confirmed covid 19 tele reviewed sinus hemodynamically still ok until just nwo bp on the lowside nwo saturating fien will dc ntp and norvasc given bolus on NS d/w rn sat are fine no indication for hypoxemia to be concerning of worsening respiratory issues or developping chf as 30% of covid 19 pt can develop sats are 100% on 50% fio2 holding off in ordering echo at this time due to active covid 19 infecion watch bp after dc of meds hr is fine , sat are fine per rn has been able to help turn herself and dose respond well Subjective ROS Limited/Unobtainable: Yes Objective Last 24 Hour Vital Signs Date Time Temp Pulse Resp B/P (MAP) Pulse Ox O2 Delivery O2 Flow Rate FiO2 02/23/20 19:00 60 16 98/44 (62) 100 02/23/20 18:00 61 16 101/58 (72) 100 02/23/20 17:00 69 21 113/48 (69) 100 02/23/20 16:44 60 18 50 02/23/20 16:00 Mechanical Ventilator 02/23/20 16:00 30 02/23/20 16:00 98.8 61 16 137/64 (88) 100 02/23/20 16:00 63 02/23/20 15:00 60 16 147/70 (95) 100 02/23/20 15:00 60 14 50 02/23/20 14:00 62 16 139/67 (91) 100 02/23/20 13:00 68 18 50 02/23/20 13:00 98.9 61 16 118/69 (85) 100 02/23/20 12:00 Mechanical Ventilator 02/23/20 12:00 61 02/23/20 12:00 98.9 60 16 140/67 (91) 100 02/23/20 12:00 40 02/23/20 11:49 155/57 02/23/20 11:39 40 02/23/20 11:12 63 16 50 02/23/20 11:00 66 16 148/66 (93) 100 02/23/20 11:00 97.6 02/23/20 10:00 72 17 190/68 (108) 100 02/23/20 09:37 64 125/50 02/23/20 09:00 70 16 135/102 (113) 100 02/23/20 09:00 75 16 50 02/23/20 08:00 78 02/23/20 08:00 50 02/23/20 08:00 Mechanical Ventilator 02/23/20 08:00 99.7 64 16 125/50 (75) 100 02/23/20 07:00 76 17 136/55 (82) 100 02/23/20 07:00 75 16 50 02/23/20 06:30 76 16 02/23/20 06:11 101.4 02/23/20 06:00 101.4 69 16 145/67 (93) 100 02/23/20 05:34 87 18 50 02/23/20 05:00 72 17 118/101 (107) 100 02/23/20 04:00 50 02/23/20 04:00 Mechanical Ventilator 02/23/20 04:00 102.0 71 16 134/63 (86) 100 02/23/20 03:54 65 02/23/20 03:00 72 16 127/56 (79) 100 02/23/20 02:45 89 18 50 02/23/20 02:00 73 16 119/57 (77) 100 02/23/20 01:15 90 16 50 02/23/20 01:00 77 16 125/59 (81) 100 02/23/20 00:00 Mechanical Ventilator 02/23/20 00:00 101.8 70 16 136/48 (77) 100 02/22/20 23:30 85 16 50 02/22/20 23:19 68 02/22/20 23:00 71 16 137/62 (87) 100 02/22/20 22:20 86 19 50 02/22/20 22:00 78 17 116/56 (76) 100 02/22/20 21:00 86 16 158/48 (84) 100 02/22/20 20:00 50 02/22/20 20:00 Mechanical Ventilator 02/22/20 20:00 101.9 86 16 111/55 (73) 100 General Appearance: no apparent distress, on vent, patient on isolation Intake and Output 02/22/20 02/23/20 19:00 07:00 Intake Total 595 ml 605 ml Output Total 3015 ml 25 ml Balance -2420 ml 580 ml Intake Free Water 155 ml IV Total 55 ml Tube Feeding 420 ml 420 ml Other 20 ml 130 ml Output Urine Total 15 ml 25 ml Hemodialysis UF 3000 ml # Bowel Movements 1 Laboratory Tests Test 02/23/20 12:20 02/23/20 12:30 Arterial Blood pH 7.534 (7.350-7.450) Arterial Blood Partial Pressure CO2 38.1 mmHg (35.0-45.0) Arterial Blood Partial Pressure O2 102.8 mmHg (75.0-100.0) H Arterial Blood HCO3 31.4 mmol/L (22.0-26.0) H Arterial Blood Oxygen Saturation 97.7 % (95-100) Arterial Blood Base Excess 8.3 (-2-2) H Lester Test Positive White Blood Count 5.5 K/UL (4.8-10.8) Red Blood Count 4.65 M/UL (4.20-5.40) Hemoglobin 11.0 G/DL (12.0-16.0) L Hematocrit 35.6 % (37.0-47.0) L Mean Corpuscular Volume 77 FL (80-99) L Mean Corpuscular Hemoglobin 23.7 PG (27.0-31.0) L Mean Corpuscular Hemoglobin Concent 31.0 G/DL (32.0-36.0) L Red Cell Distribution Width 15.1 % (11.6-14.8) H Platelet Count 146 K/UL (150-450) L Mean Platelet Volume 7.9 FL (6.5-10.1) Neutrophils (%) (Auto) % (45.0-75.0) Lymphocytes (%) (Auto) % (20.0-45.0) Monocytes (%) (Auto) % (1.0-10.0) Eosinophils (%) (Auto) % (0.0-3.0) Basophils (%) (Auto) % (0.0-2.0) Differential Total Cells Counted 100 Neutrophils % (Manual) 57 % (45-75) Lymphocytes % (Manual) 17 % (20-45) L Monocytes % (Manual) 23 % (1-10) H Eosinophils % (Manual) 0 % (0-3) Basophils % (Manual) 0 % (0-2) Band Neutrophils 3 % (0-8) Platelet Estimate Decreased L Platelet Morphology Normal Hypochromasia 1+ Anisocytosis 1+ Microcytosis 1+ Sodium Level 144 MMOL/L (136-145) Potassium Level 4.1 MMOL/L (3.5-5.1) Chloride Level 99 MMOL/L (98-107) Carbon Dioxide Level 31 MMOL/L (21-32) Anion Gap 14 mmol/L (5-15) Blood Urea Nitrogen 52 mg/dL (7-18) H Creatinine 6.9 MG/DL (0.55-1.30) H Estimat Glomerular Filtration Rate 7.4 mL/min (>60) Glucose Level 161 MG/DL (74-106) H Calcium Level 9.3 MG/DL (8.5-10.1) Phosphorus Level 5.7 MG/DL (2.5-4.9) H Magnesium Level 2.5 MG/DL (1.8-2.4) H Total Bilirubin 0.9 MG/DL (0.2-1.0) Aspartate Amino Transf (AST/SGOT) 63 U/L (15-37) H Alanine Aminotransferase (ALT/SGPT) 47 U/L (12-78) Alkaline Phosphatase 395 U/L (46-116) H C-Reactive Protein, Quantitative 6.5 mg/dL (0.00-0.90) H Pro-B-Type Natriuretic Peptide 72106 pg/mL (0-125) H Total Protein 8.1 G/DL (6.4-8.2) Albumin 3.4 G/DL (3.4-5.0) Globulin 4.7 g/dL Albumin/Globulin Ratio 0.7 (1.0-2.7) Wilfredo Mora MD Feb 23, 2020 19:38
[2020-02-23] MEDS ORDERED: HYDROcodone/Acetamin 10/325 tab ORAL PRN (19:45)
[2020-02-23] MEDS ORDERED: NS 250 ML IVPB ONE (19:45)
[2020-02-23] MEDS ORDERED: HYDROcodone/Acetamin 5/325 tab ORAL PRN (19:45)
--- NOTE | 2020-02-23 20:00 | NUR ---
NURSE NOTES: Patient will awake to voice, she is alert with eyes tracking. Is intubated with ETT 7.5 @ 25cm to the right side lipline to vent with settings of AC:16, TV:600, FiO2:30%, O2:100%. On NGT feeding of Nephro @ 35ml/hr. Tyler catheter noted and draining scan amount of urine. Dr. Reyna ordered 250ml NS bolus- administered. Temp of 99.7F rectally; cooling blanket turned back on. Will continue to monitor. Bilateral wrist restraint on for safety, skin assessed. Bed low, locked and alarm is on
[2020-02-23] MEDS: Ertapenem 500mg ivpb (q24h) IV SCH ×2 (21:40)
[2020-02-23] MEDS: Epoetin Alfa-EPBX(ESRD on dialysis)10,000 unit/ml vial SUBQ SCH (21:40)
--- NOTE | 2020-02-23 22:00 | NUR ---
NURSE NOTES: Patients temp is decreasing, now at 98.5F rectally. Tylenol was given earlier and cooling blanket remains on. Vital signs stable: BP:108/55, HR:60, O2:100%. Helped patient reposition, she is comfortable. 100ml h2o flush via NGT, tube is patent and intact.
[2020-02-24] VITALS (27 sets, daily range): BP systolic 110–167; BP diastolic 37–79
--- NOTE | 2020-02-24 | NUR ---
NURSE NOTES: Patient is seen sleeping. Shows no signs of pain or distress. Safety measures remains in place. Temp is controlled at the moment: 97.7F rectally.
--- NOTE | 2020-02-24 02:00 | NUR ---
NURSE NOTES: Patient was seen trying to touch her face. Re-adjusted bilateral soft wrist restraints as prevention of pulling of ETT. Turned and repositioned for comfort. She is now back to sleep shows no signs of distress.
--- NOTE | 2020-02-24 04:00 | NUR ---
NURSE NOTES: Vital signs stable. No changes in patient condition. Current temp: 97.8F rectally.
[2020-02-24 05:59] LABS: HEMATOCRIT 34.6 % (37.0-47.0); MEAN CORPUSCULAR VOLUME 76 FL (80-99); PLATELET COUNT 159 K/UL (150-450); RED BLOOD COUNT 4.56 M/UL (4.20-5.40); RED CELL DISTRIBUTION WIDTH 15.2 % (11.6-14.8); WHITE BLOOD COUNT 5.2 K/UL (4.8-10.8)
--- NOTE | 2020-02-24 06:00 | NUR ---
NURSE NOTES: Bed bath given, linens changes, oral care, suctioning, turned and repositioned. Blood drawn and sent to lab.
[2020-02-24] MEDS: NovoLOG Insulin Flexpen SUBQ SCH ×4 (06:04→21:34)
[2020-02-24 06:23] LABS: ALANINE AMINOTRANSFERASE 48 U/L (12-78); ALBUMIN 3.2 G/DL (3.4-5.0); ALBUMIN/GLOBULIN RATIO 0.6 (1.0-2.7); ALKALINE PHOSPHATASE 391 U/L (46-116); ANION GAP 18 mmol/L (5-15); ASPARTATE AMINO TRANSFERASE 66 U/L (15-37); BILIRUBIN,TOTAL 0.7 MG/DL (0.2-1.0); BLOOD UREA NITROGEN 64 mg/dL (7-18); CALCIUM 9.1 MG/DL (8.5-10.1); CARBON DIOXIDE 28 MMOL/L (21-32); CHLORIDE 99 MMOL/L (98-107); CREATININE 7.6 MG/DL (0.55-1.30); POTASSIUM 4.8 MMOL/L (3.5-5.1); SODIUM 144 MMOL/L (136-145)
--- NOTE | 2020-02-24 07:30 | NUR ---
NURSE NOTES: LATE ENTRY: RECEIVED REPORT FROM WILLIAM Downing PT IN BED. HIGH MCCONNELL'S POSITION. VS HR 74, BP 148/79, RR 16, SP02 99. RECTAL TEMP 100.3. UNABLE TO DETERMINE PUPILS, PT NODS TO SIMPLE QUESTIONS, A/OX1. INTUBATED ETTUBE 7.5, 25 CM AT LIP. AC 16, VT 600, FI02 30%, NO PEEP. BREATH SOUNDS RHONCHI, DIMINISHED . SECRETIONS THICK, CLEAR, GLOVER. ABDOMEN LARGE, ROUND. BOWEL SOUNDS HYPOACTIVE. NO BM AT THIS TIME. LT NARES NGT, CONNECTED TO TUBE FEEDING NEPRO RUNNING AT 35ML/HR. NO RESIDUALS. BLADDER NON-DISTENDED. DE ANDA DRAINING MINIMAL URINE. DARK MERYL. BILATERAL PULSES BOUNDING. SKIN- SEE ASSESSMENT. IV ACCESS LT UPPER ARM AND LT WRIST 22G. BILATERAL SOFT WRIST RESTRAINTS, NOTED. AIR BOURNE ISOLATION.
--- NOTE | 2020-02-24 07:41 | NUR ---
HAND-OFF: Report given to NATHALIA Yates.
[2020-02-24] MEDS: Pyridoxine 50mg tab NG SCH (08:31)
[2020-02-24] MEDS: Pantoprazole Inj IVP SCH ×2 (08:31→21:06)
[2020-02-24] MEDS: Thiamine 100mg tab NG SCH (08:31)
[2020-02-24] MEDS: Heparin 5000 units/ml inj SUBQ SCH ×2 (08:32→21:07)
--- NOTE | 2020-02-24 08:41 | Infectious Diseases Prog Note ---
Assessment/Plan Assessment/Plan ASSESSMENT: The patient is a 64-year-old female with COVID-19. SARS-CoV PCR positive. Pneum Fever No leukocytosis -02/20 CXR: Mild pulmonary vascular congestion with subtle bilateral haziness , not significantly changed.Possible tiny pleural effusions. Cardiomegaly. -Bcx ngtd -sp cx p Less likely UTI u/a wbc tnct, nit +, leuk +3; ucx cindy(colonizer) Hx of positive blood culture CONS ,persistent 02/04 BCx: CoNS 01/30 Bc: (1/2)CoNS and Citrobacter 01/27 , 02/01 Bc: CoNS - (outside facility, # of the +ve cultures are not clear) A 2D echo from outside facility did not show any evidence of vegetation as per Carido pt is high risk for CLAY: ( last admission ) Diabetes. CHF. ESRD. Hypertension. Obesity. PLAN: Plaquenil+azithromycin #1. QTc 450 cont Amikacin, Ertap #5...likely deescalate soon but will f/u sp cx continue the patient on vancomycin, day # ? ( will Rx for probable SBE) Monitor CBC. Monitor BMP. Monitor cultures (blood, Sp ) Airborne. Contact plus Isolation DW RN Subjective Allergies: Coded Allergies: NO KNOWN ALLERGIES (Unverified Allergy, Unknown, 10/15/15) Subjective Fever curve improving. FIO2 better at 30% No pressors HD tomorrow No leukocytosis Objective Vital Signs Last 24 Hour Vital Signs Date Time Temp Pulse Resp B/P (MAP) Pulse Ox O2 Delivery O2 Flow Rate FiO2 02/24/20 07:00 74 16 146/79 (101) 100 02/24/20 06:36 74 16 50 02/24/20 06:30 73 16 02/24/20 06:00 75 14 162/54 (90) 98 02/24/20 05:32 61 16 50 02/24/20 05:00 73 16 160/75 (103) 98 02/24/20 04:00 Mechanical Ventilator 02/24/20 04:00 30 02/24/20 04:00 97.8 62 16 135/59 (84) 99 02/24/20 03:40 65 02/24/20 03:16 60 16 50 02/24/20 03:00 66 16 128/60 (82) 100 02/24/20 02:00 64 16 124/57 (79) 100 02/24/20 01:43 64 17 50 02/24/20 01:00 61 16 124/58 (80) 100 02/24/20 00:00 Mechanical Ventilator 02/24/20 00:00 30 02/24/20 00:00 97.7 61 16 110/53 (72) 100 02/23/20 23:52 60 16 50 02/23/20 23:10 60 02/23/20 23:00 61 16 105/52 (69) 100 02/23/20 22:14 98.5 02/23/20 22:00 60 16 113/54 (73) 100 02/23/20 21:52 60 16 50 02/23/20 21:00 60 16 117/54 (75) 100 02/23/20 20:21 62 02/23/20 20:00 99.7 60 16 105/51 (69) 100 02/23/20 20:00 Mechanical Ventilator 02/23/20 20:00 30 02/23/20 19:56 60 16 50 02/23/20 19:00 60 16 98/44 (62) 100 02/23/20 18:00 61 16 101/58 (72) 100 02/23/20 17:00 69 21 113/48 (69) 100 02/23/20 16:44 60 18 50 02/23/20 16:00 Mechanical Ventilator 02/23/20 16:00 30 02/23/20 16:00 98.8 61 16 137/64 (88) 100 02/23/20 16:00 63 02/23/20 15:00 60 16 147/70 (95) 100 02/23/20 15:00 60 14 50 02/23/20 14:00 62 16 139/67 (91) 100 02/23/20 13:00 68 18 50 02/23/20 13:00 98.9 61 16 118/69 (85) 100 02/23/20 12:00 Mechanical Ventilator 02/23/20 12:00 61 02/23/20 12:00 98.9 60 16 140/67 (91) 100 02/23/20 12:00 40 02/23/20 11:49 155/57 02/23/20 11:39 40 02/23/20 11:12 63 16 50 02/23/20 11:00 66 16 148/66 (93) 100 02/23/20 11:00 97.6 02/23/20 10:00 72 17 190/68 (108) 100 02/23/20 09:37 64 125/50 02/23/20 09:00 70 16 135/102 (113) 100 02/23/20 09:00 75 16 50 Height (Feet): 5 Height (Inches): 7.00 Weight (Pounds): 248 Objective General Appearance: no acute distress HEENT: normocephalic, atraumatic Respiratory/Chest: no respiratory distress, no accessory muscle use Abdomen: non distended Laboratory Tests Test 02/23/20 12:20 02/23/20 12:30 02/24/20 04:00 Arterial Blood pH 7.534 (7.350-7.450) Arterial Blood Partial Pressure CO2 38.1 mmHg (35.0-45.0) Arterial Blood Partial Pressure O2 102.8 mmHg (75.0-100.0) H Arterial Blood HCO3 31.4 mmol/L (22.0-26.0) H Arterial Blood Oxygen Saturation 97.7 % (95-100) Arterial Blood Base Excess 8.3 (-2-2) H Lester Test Positive White Blood Count 5.5 K/UL (4.8-10.8) 5.2 K/UL (4.8-10.8) Red Blood Count 4.65 M/UL (4.20-5.40) 4.56 M/UL (4.20-5.40) Hemoglobin 11.0 G/DL (12.0-16.0) L 11.0 G/DL (12.0-16.0) L Hematocrit 35.6 % (37.0-47.0) L 34.6 % (37.0-47.0) L Mean Corpuscular Volume 77 FL (80-99) L 76 FL (80-99) L Mean Corpuscular Hemoglobin 23.7 PG (27.0-31.0) L 24.1 PG (27.0-31.0) L Mean Corpuscular Hemoglobin Concent 31.0 G/DL (32.0-36.0) L 31.8 G/DL (32.0-36.0) L Red Cell Distribution Width 15.1 % (11.6-14.8) H 15.2 % (11.6-14.8) H Platelet Count 146 K/UL (150-450) L 159 K/UL (150-450) Mean Platelet Volume 7.9 FL (6.5-10.1) 7.5 FL (6.5-10.1) Neutrophils (%) (Auto) % (45.0-75.0) % (45.0-75.0) Lymphocytes (%) (Auto) % (20.0-45.0) % (20.0-45.0) Monocytes (%) (Auto) % (1.0-10.0) % (1.0-10.0) Eosinophils (%) (Auto) % (0.0-3.0) % (0.0-3.0) Basophils (%) (Auto) % (0.0-2.0) % (0.0-2.0) Differential Total Cells Counted 100 Neutrophils % (Manual) 57 % (45-75) Lymphocytes % (Manual) 17 % (20-45) L Monocytes % (Manual) 23 % (1-10) H Eosinophils % (Manual) 0 % (0-3) Basophils % (Manual) 0 % (0-2) Band Neutrophils 3 % (0-8) Platelet Estimate Decreased L Platelet Morphology Normal Hypochromasia 1+ Anisocytosis 1+ Microcytosis 1+ Sodium Level 144 MMOL/L (136-145) 144 MMOL/L (136-145) Potassium Level 4.1 MMOL/L (3.5-5.1) 4.8 MMOL/L (3.5-5.1) Chloride Level 99 MMOL/L (98-107) 99 MMOL/L (98-107) Carbon Dioxide Level 31 MMOL/L (21-32) 28 MMOL/L (21-32) Anion Gap 14 mmol/L (5-15) 18 mmol/L (5-15) H Blood Urea Nitrogen 52 mg/dL (7-18) H 64 mg/dL (7-18) H Creatinine 6.9 MG/DL (0.55-1.30) H 7.6 MG/DL (0.55-1.30) H Estimat Glomerular Filtration Rate 7.4 mL/min (>60) 6.5 mL/min (>60) Glucose Level 161 MG/DL (74-106) H 152 MG/DL (74-106) H Calcium Level 9.3 MG/DL (8.5-10.1) 9.1 MG/DL (8.5-10.1) Phosphorus Level 5.7 MG/DL (2.5-4.9) H 6.0 MG/DL (2.5-4.9) H Magnesium Level 2.5 MG/DL (1.8-2.4) H 2.5 MG/DL (1.8-2.4) H Total Bilirubin 0.9 MG/DL (0.2-1.0) 0.7 MG/DL (0.2-1.0) Aspartate Amino Transf (AST/SGOT) 63 U/L (15-37) H 66 U/L (15-37) H Alanine Aminotransferase (ALT/SGPT) 47 U/L (12-78) 48 U/L (12-78) Alkaline Phosphatase 395 U/L (46-116) H 391 U/L (46-116) H C-Reactive Protein, Quantitative 6.5 mg/dL (0.00-0.90) H Pro-B-Type Natriuretic Peptide 09211 pg/mL (0-125) H Total Protein 8.1 G/DL (6.4-8.2) 8.2 G/DL (6.4-8.2) Albumin 3.4 G/DL (3.4-5.0) 3.2 G/DL (3.4-5.0) L Globulin 4.7 g/dL 5.0 g/dL Albumin/Globulin Ratio 0.7 (1.0-2.7) L 0.6 (1.0-2.7) L Current Medications Medications (Trade) Dose Ordered Sig/Josi Route PRN Reason Start Time Stop Time Status Last Admin Dose Admin Acetaminophen (Tylenol) 650 mg Q4H PRN GT fever 02/23/20 07:45 03/21/20 08:59 02/23/20 21:41 Acetaminophen/ Hydrocodone Bitart ([place] 10/325) 1 tab Q4H PRN ORAL For Pain severe 02/23/20 19:45 03/01/20 19:44 Acetaminophen/ Hydrocodone Bitart ([place] 5/325) 1 tab Q6H PRN ORAL Moderate Pain (Pain Scale 4-6) 02/23/20 19:45 03/01/20 19:44 Albuterol/ Ipratropium (Combivent Respimat) 1 puffs Q4H PRN INH Shortness of Breath 02/23/20 10:00 03/24/20 09:59 Amikacin Protocol (Amikacin pharmacy to dose) 1 ea DAILY PRN MISC Per rx protocol 02/21/20 14:30 03/22/20 14:29 Atorvastatin Calcium (Lipitor) 10 mg BEDTIME NG 02/20/20 21:00 05/20/20 20:59 02/23/20 21:40 Epoetin Jose De Jesus (Epoetin Jose De Jesus(ESRD on dialysis)) 10,000 unit SUN-SUN-SUN SUBQ 02/20/20 21:00 05/20/20 20:59 02/23/20 21:40 Ertapenem 0.5 gm/ Sodium Chloride 55 ml @ 110 mls/hr Q24H IV 02/20/20 20:00 02/29/20 19:59 02/23/20 21:40 Heparin Sodium (Porcine) (Heparin 5000 units/ml) 5,000 units EVERY 12 HOURS SUBQ 02/20/20 21:00 04/05/20 20:59 02/24/20 08:32 Hydralazine HCl (Apresoline) 10 mg Q4H PRN IV Blood pressure over 160 systol 02/20/20 12:45 05/20/20 12:44 02/20/20 20:54 Insulin Aspart (NovoLOG) BEFORE MEALS AND HS SUBQ 02/20/20 12:30 05/20/20 12:29 02/24/20 06:04 Labetalol HCl (Normodyne) 20 mg EVERY HOUR PRN IV sbp more than 180mmHg 02/20/20 11:00 03/21/20 10:59 02/21/20 01:25 Lorazepam (Ativan 2mg/ml 1ml) 2 mg Q2H PRN IV For Anxiety 02/20/20 09:00 02/27/20 08:59 02/23/20 10:16 Ondansetron HCl (Zofran) 4 mg Q6H PRN IVP Nausea & Vomiting 02/20/20 09:00 03/21/20 08:59 Pantoprazole (Protonix) 40 mg Q12HR IVP 02/20/20 21:00 03/21/20 11:59 02/24/20 08:31 Pyridoxine HCl (Vitamin B6) 50 mg DAILY NG 02/21/20 09:00 03/22/20 08:59 02/24/20 08:31 Thiamine HCl (Vitamin B1) 100 mg DAILY NG 02/21/20 09:00 03/22/20 08:59 02/24/20 08:31 Vancomycin HCl (Vanco rx to dose) 1 ea DAILY PRN MISC . 02/20/20 11:15 03/21/20 11:14 Clarice Nicolas MD Feb 24, 2020 08:41
--- NOTE | 2020-02-24 09:30 | NUR ---
NURSE NOTES: LATE ENTRY: MD BARAKAT HERE TO SEE PT. INFORMED OF FI02 30%, PT SATING 95 AND GREATER. SECRETINS MODERATE, CLEAR AND GLOVER, THICK. RHONCHI. FOLLOWS SIMPLE COMMANDS. NO NEW ORDERS AT THIS TIME.
--- NOTE | 2020-02-24 09:43 | NUR ---
RESPIRATORY NOTE: Per Dr. Murillo, don't need to draw ABG, just monitor the saturation through continuous pulse ox. NATHALIA Yates aware. Will continue to monitor pt.
--- NOTE | 2020-02-24 09:45 | NUR ---
NURSE NOTES: LATE ENTRY; MD FRIEDMAN HERE TO CHECK ON PT. WILL ORDER H.D FOR TOMORROW, MG 2.5, PHOSPHORUS [address]. [address] PL[address] OWN ORDERS.
--- NOTE | 2020-02-24 09:55 | Pulmonolgy Critical Care Note ---
Critical Care - Asmt/Plan Problems: (1) COVID-19 virus infection (2) Acute respiratory failure (3) Sepsis (4) ESRD (end stage renal disease) on dialysis (5) Accelerated hypertension (6) Decubital ulcer (7) Pacemaker (8) Diabetes (9) Blindness of both eyes (10) Morbid obesity (11) HTN (hypertension) Respiratory: monitor respiratory rate, adjust FIO2, CXR Cardiac: continue pressors, continue to monitor HR/BP Renal: F/U I&O, keep IV fluid, check electrolytes Gastrointestinal: continue feedings/current rate Endocrine: monitor blood sugar Hematologic: monitor H/H, transfuse if hgb<8.5 Neurologic: keep patient comfortable Prophylaxis: Protonix, Heparin Notes Reviewed: display designer, cardio, 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, consultants, case folderexpress manager - Objective Last 24 Hour Vital Signs Date Time Temp Pulse Resp B/P (MAP) Pulse Ox O2 Delivery O2 Flow Rate FiO2 02/24/20 09:30 71 16 30 02/24/20 07:00 74 16 146/79 (101) 100 02/24/20 06:36 74 16 50 02/24/20 06:30 73 16 02/24/20 06:00 75 14 162/54 (90) 98 02/24/20 05:32 61 16 50 02/24/20 05:00 73 16 160/75 (103) 98 02/24/20 04:00 Mechanical Ventilator 02/24/20 04:00 30 02/24/20 04:00 97.8 62 16 135/59 (84) 99 02/24/20 03:40 65 02/24/20 03:16 60 16 50 02/24/20 03:00 66 16 128/60 (82) 100 02/24/20 02:00 64 16 124/57 (79) 100 02/24/20 01:43 64 17 50 02/24/20 01:00 61 16 124/58 (80) 100 02/24/20 00:00 Mechanical Ventilator 02/24/20 00:00 30 02/24/20 00:00 97.7 61 16 110/53 (72) 100 02/23/20 23:52 60 16 50 02/23/20 23:10 60 02/23/20 23:00 61 16 105/52 (69) 100 3/30/20 22:14 98.5 02/23/20 22:00 60 16 113/54 (73) 100 02/23/20 21:52 60 16 50 02/23/20 21:00 60 16 117/54 (75) 100 02/23/20 20:21 62 02/23/20 20:00 99.7 60 16 105/51 (69) 100 02/23/20 20:00 Mechanical Ventilator 02/23/20 20:00 30 02/23/20 19:56 60 16 50 02/23/20 19:00 60 16 98/44 (62) 100 02/23/20 18:00 61 16 101/58 (72) 100 02/23/20 17:00 69 21 113/48 (69) 100 02/23/20 16:44 60 18 50 02/23/20 16:00 Mechanical Ventilator 02/23/20 16:00 30 02/23/20 16:00 98.8 61 16 137/64 (88) 100 02/23/20 16:00 63 02/23/20 15:00 60 16 147/70 (95) 100 02/23/20 15:00 60 14 50 02/23/20 14:00 62 16 139/67 (91) 100 02/23/20 13:00 68 18 50 02/23/20 13:00 98.9 61 16 118/69 (85) 100 02/23/20 12:00 Mechanical Ventilator 02/23/20 12:00 61 02/23/20 12:00 98.9 60 16 140/67 (91) 100 02/23/20 12:00 40 02/23/20 11:49 155/57 02/23/20 11:39 40 02/23/20 11:12 63 16 50 02/23/20 11:00 66 16 148/66 (93) 100 02/23/20 11:00 97.6 02/23/20 10:00 72 17 190/68 (108) 100 Status: awake Condition: critical HEENT: atraumatic, normocephalic Lungs: rales, rhonchi Heart: HR/BP stable Abdomen: soft, non-tender Extremities: no C/C/E, edema Accucheck: 155 Critical Care - Subjective ROS Limited/Unobtainable: No Condition: critical EKG Rhythm: Sinus Rhythm FI02: 30 Vent Support Breath Rate: 16 Vent Support Mode: AC Vent Tidal Volume: 600 Sputum Amount: Small PEEP: 0.0 PIP: 26 Tube Feeding Amount: 35 I&O: Intake and Output 02/23/20 02/24/20 19:00 07:00 Intake Total 500 ml 575 ml Output Total 10 ml 15 ml Balance 490 ml 560 ml Intake Free Water 50 ml IV Total 55 ml Tube Feeding 420 ml 420 ml Other 30 ml 100 ml Output Urine Total 10 ml 15 ml ET-Tube: 7.5 ET Position: 25 Labs: Laboratory Tests Test 02/23/20 12:20 02/23/20 12:30 02/24/20 04:00 Arterial Blood pH 7.534 (7.350-7.450) Arterial Blood Partial Pressure CO2 38.1 mmHg (35.0-45.0) Arterial Blood Partial Pressure O2 102.8 mmHg (75.0-100.0) H Arterial Blood HCO3 31.4 mmol/L (22.0-26.0) H Arterial Blood Oxygen Saturation 97.7 % (95-100) Arterial Blood Base Excess 8.3 (-2-2) H Lester Test Positive White Blood Count 5.5 K/UL (4.8-10.8) 5.2 K/UL (4.8-10.8) Red Blood Count 4.65 M/UL (4.20-5.40) 4.56 M/UL (4.20-5.40) Hemoglobin 11.0 G/DL (12.0-16.0) L 11.0 G/DL (12.0-16.0) L Hematocrit 35.6 % (37.0-47.0) L 34.6 % (37.0-47.0) L Mean Corpuscular Volume 77 FL (80-99) L 76 FL (80-99) L Mean Corpuscular Hemoglobin 23.7 PG (27.0-31.0) L 24.1 PG (27.0-31.0) L Mean Corpuscular Hemoglobin Concent 31.0 G/DL (32.0-36.0) L 31.8 G/DL (32.0-36.0) L Red Cell Distribution Width 15.1 % (11.6-14.8) H 15.2 % (11.6-14.8) H Platelet Count 146 K/UL (150-450) L 159 K/UL (150-450) Mean Platelet Volume 7.9 FL (6.5-10.1) 7.5 FL (6.5-10.1) Neutrophils (%) (Auto) % (45.0-75.0) % (45.0-75.0) Lymphocytes (%) (Auto) % (20.0-45.0) % (20.0-45.0) Monocytes (%) (Auto) % (1.0-10.0) % (1.0-10.0) Eosinophils (%) (Auto) % (0.0-3.0) % (0.0-3.0) Basophils (%) (Auto) % (0.0-2.0) % (0.0-2.0) Differential Total Cells Counted 100 Neutrophils % (Manual) 57 % (45-75) Lymphocytes % (Manual) 17 % (20-45) L Monocytes % (Manual) 23 % (1-10) H Eosinophils % (Manual) 0 % (0-3) Basophils % (Manual) 0 % (0-2) Band Neutrophils 3 % (0-8) Platelet Estimate Decreased L Platelet Morphology Normal Hypochromasia 1+ Anisocytosis 1+ Microcytosis 1+ Sodium Level 144 MMOL/L (136-145) 144 MMOL/L (136-145) Potassium Level 4.1 MMOL/L (3.5-5.1) 4.8 MMOL/L (3.5-5.1) Chloride Level 99 MMOL/L (98-107) 99 MMOL/L (98-107) Carbon Dioxide Level 31 MMOL/L (21-32) 28 MMOL/L (21-32) Anion Gap 14 mmol/L (5-15) 18 mmol/L (5-15) H Blood Urea Nitrogen 52 mg/dL (7-18) H 64 mg/dL (7-18) H Creatinine 6.9 MG/DL (0.55-1.30) H 7.6 MG/DL (0.55-1.30) H Estimat Glomerular Filtration Rate 7.4 mL/min (>60) 6.5 mL/min (>60) Glucose Level 161 MG/DL (74-106) H 152 MG/DL (74-106) H Calcium Level 9.3 MG/DL (8.5-10.1) 9.1 MG/DL (8.5-10.1) Phosphorus Level 5.7 MG/DL (2.5-4.9) H 6.0 MG/DL (2.5-4.9) H Magnesium Level 2.5 MG/DL (1.8-2.4) H 2.5 MG/DL (1.8-2.4) H Total Bilirubin 0.9 MG/DL (0.2-1.0) 0.7 MG/DL (0.2-1.0) Aspartate Amino Transf (AST/SGOT) 63 U/L (15-37) H 66 U/L (15-37) H Alanine Aminotransferase (ALT/SGPT) 47 U/L (12-78) 48 U/L (12-78) Alkaline Phosphatase 395 U/L (46-116) H 391 U/L (46-116) H C-Reactive Protein, Quantitative 6.5 mg/dL (0.00-0.90) H Pro-B-Type Natriuretic Peptide 92068 pg/mL (0-125) H Total Protein 8.1 G/DL (6.4-8.2) 8.2 G/DL (6.4-8.2) Albumin 3.4 G/DL (3.4-5.0) 3.2 G/DL (3.4-5.0) L Globulin 4.7 g/dL 5.0 g/dL Albumin/Globulin Ratio 0.7 (1.0-2.7) L 0.6 (1.0-2.7) L Meghana Murillo MD Feb 24, 2020 09:55
--- NOTE | 2020-02-24 09:57 | NUR ---
BUSINESS [employer] INTERN NOTE PT is currently intubated. SW spoke w/ pt's son, Jose Frias [phone]. Pt reside at [place] [id number]. Pt has 3 adult sons including Jose Frias. Pt does not have POA/AD. Jose expresses full code for pt. Jose Frias is the decision maker for pt and he declined to provide additional emergency contacts. Jose reports pt has hx of Depression and concerned of pt's current dx. RNs have been communicating and giving him prompt updates. SW to F/U as needed.
--- NOTE | 2020-02-24 10:30 | NUR ---
NURSE NOTES: LATE ENTRY: RECEIVED CALL FROM FAMILY, REQUEST THE PT BE INFORMED THAT FAMILY CALLED TO CHECK IN. PT WAS INFORMED THAT FAMILY CHECKING IN ON HER.
--- NOTE | 2020-02-24 10:55 | Nephrology Progress Note ---
Assessment/Plan Problem List: (1) Acute respiratory failure (2) ESRD (end stage renal disease) on dialysis (3) UTI (urinary tract infection) (4) Patient is Nondenominational (5) Pacemaker (6) Diabetes (7) Obesity (BMI 30-39.9) Assessment ARDS (adult respiratory distress syndrome) Fever Sepsis UTI (urinary tract infection) Respiratory failure, intubated on ventilator Thrombocytopenia Lymphopenia End stage renal disease on dialysis. Has a right upper arm dialysis fistula as Acces . Getting dialysis Sunday. morbid obesity Anemia / Jehova's witness CAD previous stent HTN- hypertensive urgency upon arrival to [facility]. s/p AVG DM 2 bilateral eye blindness h/o CHF Pacemaker Plan Patient positive for Covid 19 Per ID and pulmonary, ventilator adjustment Dialyzed again on February 21 and 4 L ultrafiltration done next dialysis February 24 EPO, thiamin and b6 Phos binders NGT feeding per consultants Remains full code at this time Subjective ROS Limited/Unobtainable: Yes Objective Objective Last 24 Hour Vital Signs Date Time Temp Pulse Resp B/P (MAP) Pulse Ox O2 Delivery O2 Flow Rate FiO2 02/24/20 10:00 72 16 167/37 (80) 100 02/24/20 09:30 71 16 30 02/24/20 09:00 75 14 140/57 (84) 100 02/24/20 08:00 30 02/24/20 08:00 73 02/24/20 08:00 100.3 74 16 158/41 (80) 99 02/24/20 07:00 74 16 146/79 (101) 100 02/24/20 06:36 74 16 50 02/24/20 06:30 73 16 02/24/20 06:00 75 14 162/54 (90) 98 02/24/20 05:32 61 16 50 02/24/20 05:00 73 16 160/75 (103) 98 02/24/20 04:00 Mechanical Ventilator 02/24/20 04:00 30 02/24/20 04:00 97.8 62 16 135/59 (84) 99 02/24/20 03:40 65 02/24/20 03:16 60 16 50 02/24/20 03:00 66 16 128/60 (82) 100 02/24/20 02:00 64 16 124/57 (79) 100 02/24/20 01:43 64 17 50 02/24/20 01:00 61 16 124/58 (80) 100 02/24/20 00:00 Mechanical Ventilator 02/24/20 00:00 30 02/24/20 00:00 97.7 61 16 110/53 (72) 100 02/23/20 23:52 60 16 50 02/23/20 23:10 60 02/23/20 23:00 61 16 105/52 (69) 100 02/23/20 22:14 98.5 02/23/20 22:00 60 16 113/54 (73) 100 02/23/20 21:52 60 16 50 02/23/20 21:00 60 16 117/54 (75) 100 02/23/20 20:21 62 02/23/20 20:00 99.7 60 16 105/51 (69) 100 02/23/20 20:00 Mechanical Ventilator 02/23/20 20:00 30 02/23/20 19:56 60 16 50 02/23/20 19:00 60 16 98/44 (62) 100 02/23/20 18:00 61 16 101/58 (72) 100 02/23/20 17:00 69 21 113/48 (69) 100 02/23/20 16:44 60 18 50 02/23/20 16:00 Mechanical Ventilator 02/23/20 16:00 30 02/23/20 16:00 98.8 61 16 137/64 (88) 100 02/23/20 16:00 63 02/23/20 15:00 60 16 147/70 (95) 100 02/23/20 15:00 60 14 50 02/23/20 14:00 62 16 139/67 (91) 100 02/23/20 13:00 68 18 50 02/23/20 13:00 98.9 61 16 118/69 (85) 100 02/23/20 12:00 Mechanical Ventilator 02/23/20 12:00 61 02/23/20 12:00 98.9 60 16 140/67 (91) 100 02/23/20 12:00 40 02/23/20 11:49 155/57 02/23/20 11:39 40 02/23/20 11:12 63 16 50 02/23/20 11:00 66 16 148/66 (93) 100 02/23/20 11:00 97.6 Intake and Output 02/23/20 02/24/20 19:00 07:00 Intake Total 500 ml 575 ml Output Total 10 ml 15 ml Balance 490 ml 560 ml Intake Free Water 50 ml IV Total 55 ml Tube Feeding 420 ml 420 ml Other 30 ml 100 ml Output Urine Total 10 ml 15 ml Laboratory Tests 02/23/20 12:20: Arterial Blood pH 7.534H, Arterial Blood Partial Pressure CO2 38.1, Arterial Blood Partial Pressure O2 102.8H, Arterial Blood HCO3 31.4H, Arterial Blood Oxygen Saturation 97.7, Arterial Blood Base Excess 8.3H, Lester Test Positive 02/23/20 12:30: White Blood Count 5.5, Red Blood Count 4.65, Hemoglobin 11.0L, Hematocrit 35.6L , Mean Corpuscular Volume 77L, Mean Corpuscular Hemoglobin 23.7L, Mean Corpuscular Hemoglobin Concent 31.0L, Red Cell Distribution Width 15.1H, Platelet Count 146L, Mean Platelet Volume 7.9, Neutrophils (%) (Auto) , Lymphocytes (%) (Auto) , Monocytes (%) (Auto) , Eosinophils (%) (Auto) , Basophils (%) (Auto) , Differential Total Cells Counted 100, Neutrophils % ( Manual) 57, Lymphocytes % (Manual) 17L, Monocytes % (Manual) 23H, Eosinophils % (Manual) 0, Basophils % (Manual) 0, Band Neutrophils 3, Platelet Estimate DecreasedL, Platelet Morphology Normal, Hypochromasia 1+, Anisocytosis 1+, Microcytosis 1+, Sodium Level 144, Potassium Level 4.1, Chloride Level 99, Carbon Dioxide Level 31, Anion Gap 14, Blood Urea Nitrogen 52H, Creatinine 6.9H , Estimat Glomerular Filtration Rate 7.4, Glucose Level 161H, Calcium Level 9.3 , Phosphorus Level 5.7H, Magnesium Level 2.5H, Total Bilirubin 0.9, Aspartate Amino Transf (AST/SGOT) 63H, Alanine Aminotransferase (ALT/SGPT) 47, Alkaline Phosphatase 395H, C-Reactive Protein, Quantitative 6.5H, Pro-B-Type Natriuretic Peptide [id number], Total Protein 8.1, Albumin 3.4, Globulin 4.7, Albumin/Globulin Ratio 0.7L 02/24/20 04:00: White Blood Count 5.2, Red Blood Count 4.56, Hemoglobin 11.0L, Hematocrit 34.6L , Mean Corpuscular Volume 76L, Mean Corpuscular Hemoglobin 24.1L, Mean Corpuscular Hemoglobin Concent 31.8L, Red Cell Distribution Width 15.2H, Platelet Count 159, Mean Platelet Volume 7.5, Neutrophils (%) (Auto) , Lymphocytes (%) (Auto) , Monocytes (%) (Auto) , Eosinophils (%) (Auto) , Basophils (%) (Auto) , Sodium Level 144, Potassium Level 4.8, Chloride Level 99 , Carbon Dioxide Level 28, Anion Gap 18H, Blood Urea Nitrogen 64H, Creatinine 7.6H, Estimat Glomerular Filtration Rate 6.5, Glucose Level 152H, Calcium Level 9.1, Phosphorus Level 6.0H, Magnesium Level 2.5H, Total Bilirubin 0.7, Aspartate Amino Transf (AST/SGOT) 66H, Alanine Aminotransferase (ALT/SGPT) 48, Alkaline Phosphatase 391H, Total Protein 8.2, Albumin 3.2L, Globulin 5.0, Albumin/Globulin Ratio 0.6L Height (Feet): 5 Height (Inches): 7.00 Weight (Pounds): 248 General Appearance: no apparent distress EENT: other Cardiovascular: normal rate Respiratory/Chest: decreased breath sounds Abdomen: distended Bryan Hunter MD Feb 24, 2020 10:55
--- NOTE | 2020-02-24 10:55 | NUR ---
CASE MANAGEMENT:INITIAL REVIEW 02/21/2020 64 YR OLD FEMALE BIBA FROM [facility] CC;DYSPNEA/RESPIRATORY DISTRESS SI;RESPIRATORY FAILURE. FEVER. SEPSIS. 102.6 98 24 199/111 82% ON RA NA 135 K+ 5.3 CO2 33 ALK PHOS 346 CXR ~ Prominence of the central pulmonary vasculature with subtle patchy bilateral airspace opacities. Although findings may be related to patchy areas of developing alveolar edema possibility of atypical or viral infection is not excluded. COVID-19 - RESULTS PENDING IS;IVF NS BOLUS AMIKACIN IN ONCE MEROPEN[place] IN ONCE ADMITTED TO ICU ON 02/20/2020 ICU STATUS DCP;FROM [facility] CASE MANAGEMENT:REVIEW 02/23/2020 SI;COVID-19 VIRUS INFECTION. AC RESP FAILURE. SEPSIS. RESPIRATORY FAILURE ~ ORALLY INTUBATED 102.0 87 16 145/67 100& MECH VENT AC 16 TV 600 PEEP 0 FIO2 @ 50% BUN 52 CR 6.9 PHOS 5.7 ,G 2.5 ALK PHOS 395 CRP 6.5 BNP [id number] IS;ERTAPEMEN IV Q24 HRS PROTONIX IV Q12 HRS HYDRALAZINE IV Q4 HRS PRN DUO NEB HHN Q4 HRS IV ONCE ICU STATUS DCP;FROM [facility]
[2020-02-24] MEDS ORDERED: Hydromorphone 0.5mg/0.5ml inj IVP PRN (11:00)
--- NOTE | 2020-02-24 11:15 | NUR ---
RADIOLOGY DEPT., CHEST X-RAY DONE.-P.DYE
--- NOTE | 2020-02-24 11:31 | NUR ---
NURSE NOTES: CALLED H.Candice, [facility] [phone], SPOKE WITH [facility] REP. REPORTED H.Candice ORDER FOR PT 246-A, 02/25/2020.
[2020-02-24] MEDS ORDERED: Thiamine HCl 100 MG in D5W 55 ML IVPB SCH (12:00)
--- NOTE | 2020-02-24 12:00 | NUR ---
NURSE NOTES: LATE ENTRY: PT IN BED. VS HR 72, BP 137/56, RR 16, SP02 99. RECTAL TEMP 99.3. PT FOLLOWS SIMPLE COMMANDS. INTUBATED ETTUBE 7.5, 25 CM AT LIP. AC 16, VT 600, FI02 30%. SECRETIONS THICK, SMALL, CLEAR, GLOVER. NO BM AT THIS TIME. LT NARES NGT, NEPRO RUNNING AT 35ML/HR. NO RESIDUALS. DE ANDA DRAINING MINIMAL URINE. DARK MERYL. IV'S ALEXIS AND LT WRIST 22G. BILATERAL SOFT WRIST RESTRAINTS, NOTED. AIR BOURNE ISOLATION. CALL LIGHT IN REACH. BED ALARM ON. LOCKED AND IN LOW POSITION. WILL CONTINUE TO IMPLEMENT PLAN OF CARE.
--- NOTE | 2020-02-24 12:02 | Diagnostic Imaging Report ---
Indication: Dyspnea Technique: One view of the chest Comparison: 02/21/2020 Findings: Inspiration is suboptimal. This results in some crowding of bronchovascular markings. Stable satisfactory positions of endotracheal and orogastric tubes. The heart is enlarged. Somewhat ill-defined hazy airspace disease is seen at the right lung base the left perihilar region. The heart remains enlarged. No effusions. Left chest pacemaker remains.. Impression: Essentially unchanged, over 3 days, allowing for differences in degree of inspiration. Findings as noted
[2020-02-24] MEDS: Acetaminophen 650mg/20.3ml GT PRN ×2 (12:19→21:06)
--- NOTE | 2020-02-24 12:52 | NUR ---
RD ASSESSMENT & RECOMMENDATIONS SEE CARE ACTIVITY FOR COMPLETE ASSESSMENT DAILY ESTIMATED NEEDS: Needs based on obesity, critical care, HD 11-14kg actual body wt (114kg) kcals/kg 8447-1461 total kcals 1.5-2.0kg/IBW (66kg) g protein/kg 99-132 g total protein per MD, pt on HD NUTRITION DIAGNOSIS: * Swallowing difficulty R/T respiratory status as evidenced by pt orally intubated, on NGT feeding. * Altered nutrition related lab values R/T ESRD as evidenced by elev creat (7.6), elev BNP (51644), elev phos (6.0). CURRENT TF: Nepro @ 35ml/hr x 24 hrs ENTERAL NUTRITION RECOMMENDATIONS: Nepro @ 35ml/hr x 24 hrs + Prosource 1pkt TID to provide 840ml, 1512kcal, 68 +33g prot, 611ml free water * Maintain current TF @ goal. * Add Prosource 1pkt TID to meet protein needs * HOB over 30 degrees/ water flush per MD. ADDITIONAL RECOMMENDATIONS: 1) Calibrated bedscale wt for accurate CBW- daily wts for ESRD dx 2) Add Nephrovite x 1 3) Monitor BGs closely, for hypoglycemia : h/o frequent hypoglycemia during prev admissions 4) Consider phos binders for consistently elevated phos level 5) F/up w/ wound eval for Lt heel
--- NOTE | 2020-02-24 12:54 | General Progress Note ---
Assessment/Plan Problem List: (1) Obesity (BMI 30-39.9) ICD Codes: E66.9 - Obesity, unspecified SNOMED: 125392774, 710898065 (2) COVID-19 virus infection ICD Codes: U07.1 - COVID-19 SNOMED: 194887616 (3) Acute respiratory failure ICD Codes: J96.00 - Acute respiratory failure, unspecified whether with hypoxia or hypercapnia SNOMED: 10886878 (4) Blindness of both eyes ICD Codes: H54.0 - Blindness SNOMED: 740415340 (5) ESRD (end stage renal disease) on dialysis ICD Codes: N18.6 - End stage renal disease; Z99.2 - Dependence on renal dialysis SNOMED: 275129473 (6) Anemia ICD Codes: D64.9 - Anemia, unspecified SNOMED: 498906921 (7) Diabetes ICD Codes: E11.9 - Type 2 diabetes mellitus without complications SNOMED: 64390663 (8) AMS (altered mental status) ICD Codes: R41.82 - Altered mental status, unspecified SNOMED: 961174702 Status: unchanged Assessment/Plan: vent abx dialysis cbc bmp am Subjective Constitutional: Reports: weakness Allergies: Coded Allergies: NO KNOWN ALLERGIES (Unverified Allergy, Unknown, 10/15/15) All Systems: reviewed and negative except above Subjective intubated sedated in icu Objective Last 24 Hour Vital Signs Date Time Temp Pulse Resp B/P (MAP) Pulse Ox O2 Delivery O2 Flow Rate FiO2 02/24/20 11:00 73 16 139/50 (79) 100 02/24/20 10:45 73 16 30 02/24/20 10:00 72 16 167/37 (80) 100 02/24/20 09:30 71 16 30 02/24/20 09:00 75 14 140/57 (84) 100 02/24/20 08:00 30 02/24/20 08:00 73 02/24/20 08:00 100.3 74 16 158/41 (80) 99 02/24/20 08:00 Mechanical Ventilator 02/24/20 07:00 74 16 146/79 (101) 100 02/24/20 06:36 74 16 50 02/24/20 06:30 73 16 02/24/20 06:00 75 14 162/54 (90) 98 02/24/20 05:32 61 16 50 02/24/20 05:00 73 16 160/75 (103) 98 02/24/20 04:00 Mechanical Ventilator 02/24/20 04:00 30 02/24/20 04:00 97.8 62 16 135/59 (84) 99 02/24/20 03:40 65 02/24/20 03:16 60 16 50 02/24/20 03:00 66 16 128/60 (82) 100 02/24/20 02:00 64 16 124/57 (79) 100 02/24/20 01:43 64 17 50 02/24/20 01:00 61 16 124/58 (80) 100 02/24/20 00:00 Mechanical Ventilator 02/24/20 00:00 30 02/24/20 00:00 97.7 61 16 110/53 (72) 100 02/23/20 23:52 60 16 50 02/23/20 23:10 60 02/23/20 23:00 61 16 105/52 (69) 100 02/23/20 22:14 98.5 02/23/20 22:00 60 16 113/54 (73) 100 02/23/20 21:52 60 16 50 02/23/20 21:00 60 16 117/54 (75) 100 02/23/20 20:21 62 02/23/20 20:00 99.7 60 16 105/51 (69) 100 02/23/20 20:00 Mechanical Ventilator 02/23/20 20:00 30 02/23/20 19:56 60 16 50 02/23/20 19:00 60 16 98/44 (62) 100 02/23/20 18:00 61 16 101/58 (72) 100 02/23/20 17:00 69 21 113/48 (69) 100 02/23/20 16:44 60 18 50 02/23/20 16:00 Mechanical Ventilator 02/23/20 16:00 30 02/23/20 16:00 98.8 61 16 137/64 (88) 100 02/23/20 16:00 63 02/23/20 15:00 60 16 147/70 (95) 100 02/23/20 15:00 60 14 50 02/23/20 14:00 62 16 139/67 (91) 100 02/23/20 13:00 68 18 50 02/23/20 13:00 98.9 61 16 118/69 (85) 100 Intake and Output 02/23/20 02/24/20 19:00 07:00 Intake Total 500 ml 575 ml Output Total 10 ml 15 ml Balance 490 ml 560 ml Intake Free Water 50 ml IV Total 55 ml Tube Feeding 420 ml 420 ml Other 30 ml 100 ml Output Urine Total 10 ml 15 ml Laboratory Tests 02/24/20 04:00: White Blood Count 5.2, Red Blood Count 4.56, Hemoglobin 11.0L, Hematocrit 34.6L , Mean Corpuscular Volume 76L, Mean Corpuscular Hemoglobin 24.1L, Mean Corpuscular Hemoglobin Concent 31.8L, Red Cell Distribution Width 15.2H, Platelet Count 159, Mean Platelet Volume 7.5, Neutrophils (%) (Auto) , Lymphocytes (%) (Auto) , Monocytes (%) (Auto) , Eosinophils (%) (Auto) , Basophils (%) (Auto) , Sodium Level 144, Potassium Level 4.8, Chloride Level 99 , Carbon Dioxide Level 28, Anion Gap 18H, Blood Urea Nitrogen 64H, Creatinine 7.6H, Estimat Glomerular Filtration Rate 6.5, Glucose Level 152H, Calcium Level 9.1, Phosphorus Level 6.0H, Magnesium Level 2.5H, Total Bilirubin 0.7, Aspartate Amino Transf (AST/SGOT) 66H, Alanine Aminotransferase (ALT/SGPT) 48, Alkaline Phosphatase 391H, Total Protein 8.2, Albumin 3.2L, Globulin 5.0, Albumin/Globulin Ratio 0.6L Height (Feet): 5 Height (Inches): 7.00 Weight (Pounds): 248 General Appearance: lethargic EENT: normal ENT inspection Neck: normal alignment Cardiovascular: normal rate, regular rhythm Respiratory/Chest: respiratory distress Extremities: normal inspection Neurologic: unresponsive Skin: normal pigmentation Roderick Henning DO Feb 24, 2020 12:54
--- NOTE | 2020-02-24 14:35 | Cardiology Progress Note ---
Assessment/Plan Assessment/Plan 1. Respiratory failure. 2. History of obesity hypoventilation syndrome. 3. History of pulmonary hypertension previously. 4. Urinary tract infection. 5. covid 19 infection confimred 6. Questionable pneumonia. 7. History of bacteremia with Staph epi recently on 02/05/2020. i did not examine pt personally i did not feel the risk to me personally are worth the limited information that could be obtained while pt is not communicative and on a vent with confirmed covid 19 tele reviewed sinus hemodynamically still ok , bp better today, post bolus last ntie , and off the norvasc and ntp d/w rn sat are fine no indication for hypoxemia to be concerning of worsening respiratory issues or developping chf as 30% of covid 19 pt can develop sats are 99- 100% on 30% fio2 low grade fever on abx holding off in ordering echo at this time due to active covid 19 infecion watch bp after dc of meds hr is fine , sat are fine ewean whe feasible i sw her form out side the door looks quie comortable all labs reviewed Subjective ROS Limited/Unobtainable: Yes Objective Last 24 Hour Vital Signs Date Time Temp Pulse Resp B/P (MAP) Pulse Ox O2 Delivery O2 Flow Rate FiO2 02/24/20 14:00 61 16 142/61 (88) 99 02/24/20 13:14 64 16 30 02/24/20 13:00 73 16 137/56 (83) 99 02/24/20 12:52 99.5 02/24/20 12:30 71 16 151/54 (86) 100 02/24/20 12:00 99.5 71 16 161/53 (89) 100 02/24/20 12:00 Mechanical Ventilator 02/24/20 12:00 30 02/24/20 12:00 87 02/24/20 11:00 73 16 139/50 (79) 100 02/24/20 10:45 73 16 30 02/24/20 10:00 72 16 167/37 (80) 100 02/24/20 09:30 71 16 30 02/24/20 09:00 75 14 140/57 (84) 100 02/24/20 08:00 30 02/24/20 08:00 73 02/24/20 08:00 100.3 74 16 158/41 (80) 99 02/24/20 08:00 Mechanical Ventilator 02/24/20 07:00 74 16 146/79 (101) 100 02/24/20 06:36 74 16 50 02/24/20 06:30 73 16 02/24/20 06:00 75 14 162/54 (90) 98 02/24/20 05:32 61 16 50 02/24/20 05:00 73 16 160/75 (103) 98 02/24/20 04:00 Mechanical Ventilator 02/24/20 04:00 30 02/24/20 04:00 97.8 62 16 135/59 (84) 99 02/24/20 03:40 65 02/24/20 03:16 60 16 50 02/24/20 03:00 66 16 128/60 (82) 100 02/24/20 02:00 64 16 124/57 (79) 100 02/24/20 01:43 64 17 50 02/24/20 01:00 61 16 124/58 (80) 100 02/24/20 00:00 Mechanical Ventilator 02/24/20 00:00 30 02/24/20 00:00 97.7 61 16 110/53 (72) 100 02/23/20 23:52 60 16 50 02/23/20 23:10 60 02/23/20 23:00 61 16 105/52 (69) 100 02/23/20 22:00 60 16 113/54 (73) 100 02/23/20 21:52 60 16 50 02/23/20 21:00 60 16 117/54 (75) 100 02/23/20 20:21 62 02/23/20 20:00 99.7 60 16 105/51 (69) 100 02/23/20 20:00 Mechanical Ventilator 02/23/20 20:00 30 02/23/20 19:56 60 16 50 02/23/20 19:00 60 16 98/44 (62) 100 02/23/20 18:00 61 16 101/58 (72) 100 02/23/20 17:00 69 21 113/48 (69) 100 02/23/20 16:44 60 18 50 02/23/20 16:00 Mechanical Ventilator 02/23/20 16:00 30 02/23/20 16:00 98.8 61 16 137/64 (88) 100 02/23/20 16:00 63 02/23/20 15:00 60 16 147/70 (95) 100 02/23/20 15:00 60 14 50 General Appearance: no apparent distress, obese, on vent, patient on isolation Intake and Output 02/23/20 02/24/20 19:00 07:00 Intake Total 500 ml 575 ml Output Total 10 ml 15 ml Balance 490 ml 560 ml Intake Free Water 50 ml IV Total 55 ml Tube Feeding 420 ml 420 ml Other 30 ml 100 ml Output Urine Total 10 ml 15 ml Laboratory Tests Test 02/24/20 04:00 White Blood Count 5.2 K/UL (4.8-10.8) Red Blood Count 4.56 M/UL (4.20-5.40) Hemoglobin 11.0 G/DL (12.0-16.0) L Hematocrit 34.6 % (37.0-47.0) L Mean Corpuscular Volume 76 FL (80-99) L Mean Corpuscular Hemoglobin 24.1 PG (27.0-31.0) L Mean Corpuscular Hemoglobin Concent 31.8 G/DL (32.0-36.0) L Red Cell Distribution Width 15.2 % (11.6-14.8) H Platelet Count 159 K/UL (150-450) Mean Platelet Volume 7.5 FL (6.5-10.1) Neutrophils (%) (Auto) % (45.0-75.0) Lymphocytes (%) (Auto) % (20.0-45.0) Monocytes (%) (Auto) % (1.0-10.0) Eosinophils (%) (Auto) % (0.0-3.0) Basophils (%) (Auto) % (0.0-2.0) Sodium Level 144 MMOL/L (136-145) Potassium Level 4.8 MMOL/L (3.5-5.1) Chloride Level 99 MMOL/L (98-107) Carbon Dioxide Level 28 MMOL/L (21-32) Anion Gap 18 mmol/L (5-15) H Blood Urea Nitrogen 64 mg/dL (7-18) H Creatinine 7.6 MG/DL (0.55-1.30) H Estimat Glomerular Filtration Rate 6.5 mL/min (>60) Glucose Level 152 MG/DL (74-106) H Calcium Level 9.1 MG/DL (8.5-10.1) Phosphorus Level 6.0 MG/DL (2.5-4.9) H Magnesium Level 2.5 MG/DL (1.8-2.4) H Total Bilirubin 0.7 MG/DL (0.2-1.0) Aspartate Amino Transf (AST/SGOT) 66 U/L (15-37) H Alanine Aminotransferase (ALT/SGPT) 48 U/L (12-78) Alkaline Phosphatase 391 U/L (46-116) H Total Protein 8.2 G/DL (6.4-8.2) Albumin 3.2 G/DL (3.4-5.0) L Globulin 5.0 g/dL Albumin/Globulin Ratio 0.6 (1.0-2.7) L Microbiology Date/Time Source Procedure Growth Status 02/23/20 04:15 Sputum Gram Stain - Final Resulted 02/23/20 04:15 Sputum Sputum Culture Pending Resulted Wilfredo Reyna MD Feb 24, 2020 14:35
[2020-02-24] MEDS: LORazepam Inj 2mg/ml 1ml IV PRN (14:55)
--- NOTE | 2020-02-24 14:55 | NUR ---
NURSE NOTES: LATE ENTRY: PT INCREASED AGITATION, NOTED ATTEMPTING TO PULL AT ETTUBE, SLIDING DOWN IN BED FOR TUBING. RESTRAINTS ADJUSTED, PT REPOSITIONED, ANXIETY REMAINS, ATIVAN 2MG, 1ML IVP GIVEN. PT CALM. RESTING. VSS. WILL CONTINUE TO MONITOR PT.
--- NOTE | 2020-02-24 15:25 | NUR ---
NURSE NOTES:WOUND CARE NOTES:Non-Blanching erythema with fluctuance L heel. Skin barrier applied and both heels are floated off mattress. Tx.Plan: Apply Cavilon Skin Barrier to Both heels. Cover each heel with Optifoam drsg. Change every 7 days and prn. Apply Moisture Barrier Paste to Sacrum. Cover with Optifoam drsg. Change every 3 days and prn. Reposition at least every 2hours or as tolerated. Off-load heels with pillow.
--- NOTE | 2020-02-24 16:00 | NUR ---
NURSE NOTES: LATE ENTRY: PT IN BED. MOVES AROUND, ATTEMPTING TO REACH ETTUBE. COUGHING NOTED, SUCTION AIRWAY, THICK GLOVER SECRETIONS NOTED. TEMP TRENDING UP. COOLING MEASURES IN PLACE. PT HAD ONE LARGE WATERY BM, BROWN, ODOR. PT CLEANED AND REPOSITIONED. WILL CONTINUE TO MONITOR PT. CLOSELY
[2020-02-24] MEDS ORDERED: Azithromycin 250mg tab NG SCH (17:27)
--- NOTE | 2020-02-24 19:30 | NUR ---
HAND-OFF: Report given to WILLIAM Downing PT IN NO ACUTE DISTRESS.
--- NOTE | 2020-02-24 19:31 | NUR ---
NURSE NOTES: Received patient from NATHALIA Yates. Will continue plan of care.
--- NOTE | 2020-02-24 20:00 | NUR ---
NURSE NOTES: Patient will awake to voice, she is alert with eyes tracking. Is intubated with ETT 7.5 @ 25cm to the left side lipline to vent with settings of AC:16, TV:600, FiO2:30%, O2:100%. On NGT feeding of Nephro @ 35ml/hr. Tyler catheter noted and draining scan amount of urine. Temp of 100.0F rectally; cooling blanket on. Will continue to monitor. Patient was also seen trying to pull onto ETT and NGT; bilateral wrist restraint on for safety, skin assessed. Bed low, locked and alarm is on. Current BP: 127/68, HR:72, RESP:18, O2:100%.
[2020-02-24] MEDS: Ertapenem 500mg ivpb (q24h) IV SCH ×2 (21:06)
--- NOTE | 2020-02-24 22:00 | NUR ---
NURSE NOTES: Tylenol 650mg give via NGT for elevated temp of 100.0F rectal. Adjusted cooling blanket to help lower body temp. Turned and repositioned. Patient is comfortable.
[2020-02-25] VITALS (29 sets, daily range): BP systolic 88–157; BP diastolic 43–79
--- NOTE | 2020-02-25 | NUR ---
NURSE NOTES: Patient is resting comfortably. RT at bedside providing suctioning. Patient is seen to re-adjust herself in bed. Safety measures in place. Temp now 98.1F rectally.
--- NOTE | 2020-02-25 02:00 | NUR ---
NURSE NOTES: Patient seen repositioning herself in bed. Temp is controlled. Cuurently at 98.0F rectally. Vital signs are stable. No changes in condition.
--- NOTE | 2020-02-25 04:00 | NUR ---
NURSE NOTES: Vital signs stable. RT at bedside. Safety measures in place. No changes in condition.
[2020-02-25] MEDS: NovoLOG Insulin Flexpen SUBQ SCH ×4 (05:39→21:00)
--- NOTE | 2020-02-25 06:00 | NUR ---
NURSE NOTES: Bed bath given, linens changed, oral care, suctioning, turned and repositioned. Blood drawn and sent to lab. Safety measures in place.
[2020-02-25] MEDS ORDERED: Labetalol 5mg/ml 20ml vial IV PRN (06:30)
[2020-02-25] MEDS ORDERED: Amikacin Rx to dose MISC PRN (06:30)
[2020-02-25] MEDS ORDERED: Hydromorphone 0.5mg/0.5ml inj IVP PRN (06:30)
[2020-02-25] MEDS ORDERED: Ertapenem 500mg ivpb (q24h) IV SCH ×2 (06:30)
[2020-02-25] MEDS ORDERED: LORazepam Inj 2mg/ml 1ml IV PRN (06:30)
[2020-02-25 06:57] LABS: HEMATOCRIT 36.2 % (37.0-47.0); HEMOGLOBIN 11.4 G/DL (12.0-16.0); MEAN CORPUSCULAR VOLUME 77 FL (80-99); PLATELET COUNT 181 K/UL (150-450); RED BLOOD COUNT 4.71 M/UL (4.20-5.40); RED CELL DISTRIBUTION WIDTH 15.5 % (11.6-14.8); WHITE BLOOD COUNT 6.5 K/UL (4.8-10.8)
--- NOTE | 2020-02-25 07:00 | NUR ---
RESPIRATORY NOTES: Received Patient on Vent settings ACVC RR 16, VT 600, FIO2 30%, PEEP +0. Patient intubated with a 7.5 ETT witha 25 cm lip line, secured with anchorfast. Patient currently obtundent with minimal movement. Vent plugged into red outlet. Alarms are on and audible. Will continue to monitor closely throughout the day.
--- NOTE | 2020-02-25 07:06 | NUR ---
HAND-OFF: Report given to NATHALIA Yates.
[2020-02-25 07:23] LABS: ALANINE AMINOTRANSFERASE 40 U/L (12-78); ALBUMIN 3.3 G/DL (3.4-5.0); ALBUMIN/GLOBULIN RATIO 0.7 (1.0-2.7); ALKALINE PHOSPHATASE 384 U/L (46-116); ANION GAP 17 mmol/L (5-15); BILIRUBIN,TOTAL 0.6 MG/DL (0.2-1.0); BLOOD UREA NITROGEN 90 mg/dL (7-18); CALCIUM 8.7 MG/DL (8.5-10.1); CARBON DIOXIDE 27 MMOL/L (21-32); CHLORIDE 98 MMOL/L (98-107); CREATININE 9.3 MG/DL (0.55-1.30); GAMMA GLUTAMYL TRANSPEPTIDASE 425 U/L (5-85); PHOSPHORUS 6.4 MG/DL (2.5-4.9); POTASSIUM 5.4 MMOL/L (3.5-5.1); SODIUM 142 MMOL/L (136-145)
--- NOTE | 2020-02-25 07:40 | NUR ---
NURSE NOTES: LATE ENTRY: RECEIVED REPORT FROM WILLIAM Downing VS HR 62, BP 143/48, RR 16, SP02 100. RECTAL TEMP 100.5. UNABLE TO DETERMINE PUPILS. A/OX1. INTUBATED ETTUBE 7.5, 25 CM AT LIP. AC 16, VT 600, FI02 30%, NO PEEP. BREATH SOUNDS DIMINISHED. SECRETIONS THICK, GLOVER. ABDOMEN LARGE, ROUND. ABDOMINAL HERNIA NOTED WHEN SUPINE. BOWEL SOUNDS HYPERACTIVE. NO BM. LT NARES NGT, TUBE FEEDING NEPRO RUNNING AT 35ML/HR. NO RESIDUALS. BLADDER NON-DISTENDED. DE ANDA DRAINING MINIMAL URINE. DARK MERYL. BILATERAL PULSES PRESENT. SKIN- SEE ASSESSMENT. IV ACCESS LT UPPER ARM AND LT WRIST 22G, PATENT AND INTACT. BILATERAL SOFT WRIST RESTRAINTS, CIRCULATION CHECK AND ROM PROVIDED. PT NON COMPLIANT. AIR BOURNE AND CONTACT ISOLATION INTACT. WILL CONTINUE TO IMPLEMENT PLAN OF CARE.
[2020-02-25 07:44] LABS: ASPARTATE AMINO TRANSFERASE 157 U/L (15-37)
[2020-02-25] MEDS: Heparin 5000 units/ml inj SUBQ SCH ×2 (09:00→21:17)
--- NOTE | 2020-02-25 09:06 | General Progress Note ---
Assessment/Plan Problem List: (1) Obesity (BMI 30-39.9) ICD Codes: E66.9 - Obesity, unspecified SNOMED: 400099382, 553841204 (2) COVID-19 virus infection ICD Codes: U07.1 - COVID-19 SNOMED: 710844052 (3) Acute respiratory failure ICD Codes: J96.00 - Acute respiratory failure, unspecified whether with hypoxia or hypercapnia SNOMED: 66608947 (4) Blindness of both eyes ICD Codes: H54.0 - Blindness SNOMED: 142179873 (5) ESRD (end stage renal disease) on dialysis ICD Codes: N18.6 - End stage renal disease; Z99.2 - Dependence on renal dialysis SNOMED: 188603671 (6) Anemia ICD Codes: D64.9 - Anemia, unspecified SNOMED: 093694737 (7) Diabetes ICD Codes: E11.9 - Type 2 diabetes mellitus without complications SNOMED: 34297781 (8) AMS (altered mental status) ICD Codes: R41.82 - Altered mental status, unspecified SNOMED: 773734144 Status: unchanged Assessment/Plan: vent abx dialysis cbc bmp am Subjective Constitutional: Reports: weakness Allergies: Coded Allergies: NO KNOWN ALLERGIES (Unverified Allergy, Unknown, 10/15/15) All Systems: reviewed and negative except above Subjective intubated sedated ng in icu Objective Last 24 Hour Vital Signs Date Time Temp Pulse Resp B/P (MAP) Pulse Ox O2 Delivery O2 Flow Rate FiO2 02/25/20 08:30 61 16 145/69 (94) 100 02/25/20 08:00 99.5 61 15 141/53 (82) 100 02/25/20 08:00 60 02/25/20 08:00 30 02/25/20 07:02 60 16 30 02/25/20 07:00 62 16 131/47 (75) 100 02/25/20 06:30 64 16 02/25/20 06:00 63 18 135/48 (77) 100 02/25/20 05:30 60 18 30 02/25/20 05:00 68 18 130/54 (79) 100 02/25/20 04:00 Mechanical Ventilator 02/25/20 04:00 30 02/25/20 04:00 97.9 65 18 149/50 (83) 100 02/25/20 03:30 62 17 30 02/25/20 03:07 63 02/25/20 03:00 64 18 126/51 (76) 99 02/25/20 02:00 64 17 157/52 (87) 99 02/25/20 01:00 65 18 137/51 (79) 100 02/25/20 00:55 62 18 30 02/25/20 00:00 Mechanical Ventilator 02/25/20 00:00 98.1 62 18 131/56 (81) 100 02/24/20 23:30 64 19 30 02/24/20 23:08 64 02/24/20 23:00 64 15 124/64 (84) 98 02/24/20 22:00 66 15 138/41 (73) 99 02/24/20 21:36 99.8 02/24/20 21:30 78 19 30 02/24/20 21:00 71 18 146/48 (80) 100 02/24/20 20:00 Mechanical Ventilator 02/24/20 20:00 100.0 74 18 127/68 (87) 100 02/24/20 20:00 30 02/24/20 19:30 77 18 30 02/24/20 19:20 74 02/24/20 19:00 72 18 163/70 (101) 99 02/24/20 18:00 100.9 74 19 153/50 (84) 98 02/24/20 17:30 77 17 143/66 (91) 99 02/24/20 17:03 85 20 30 02/24/20 17:00 80 23 167/60 (95) 99 02/24/20 16:00 Mechanical Ventilator 02/24/20 16:00 73 02/24/20 16:00 30 02/24/20 16:00 98.9 74 17 131/66 (87) 99 02/24/20 15:30 74 17 119/72 (88) 98 02/24/20 15:00 77 17 149/61 (90) 100 02/24/20 14:30 77 18 30 02/24/20 14:00 61 16 142/61 (88) 99 02/24/20 13:14 64 16 30 02/24/20 13:00 73 16 137/56 (83) 99 02/24/20 12:30 71 16 151/54 (86) 100 02/24/20 12:00 99.5 71 16 161/53 (89) 100 02/24/20 12:00 Mechanical Ventilator 02/24/20 12:00 30 02/24/20 12:00 87 02/24/20 11:00 73 16 139/50 (79) 100 02/24/20 10:45 73 16 30 02/24/20 10:00 72 16 167/37 (80) 100 02/24/20 09:30 71 16 30 Intake and Output 02/24/20 02/25/20 18:59 06:59 Intake Total 722 ml 605 ml Output Total 20 ml 35 ml Balance 702 ml 570 ml Intake Free Water 100 ml 30 ml IV Total 112 ml 55 ml Tube Feeding 420 ml 420 ml Other 90 ml 100 ml Output Urine Total 20 ml 35 ml # Bowel Movements 1 Laboratory Tests 02/25/20 04:00: White Blood Count 6.5, Red Blood Count 4.71, Hemoglobin 11.4L, Hematocrit 36.2L , Mean Corpuscular Volume 77L, Mean Corpuscular Hemoglobin 24.2L, Mean Corpuscular Hemoglobin Concent 31.5L, Red Cell Distribution Width 15.5H, Platelet Count 181, Mean Platelet Volume 8.4, Neutrophils (%) (Auto) , Lymphocytes (%) (Auto) , Monocytes (%) (Auto) , Eosinophils (%) (Auto) , Basophils (%) (Auto) , Differential Total Cells Counted 100, Neutrophils % ( Manual) 61, Lymphocytes % (Manual) 19L, Monocytes % (Manual) 18H, Eosinophils % (Manual) 1, Basophils % (Manual) 1, Band Neutrophils 0, Platelet Estimate Adequate, Platelet Morphology Normal, Microcytosis 1+, Sodium Level 142, Potassium Level 5.4H, Chloride Level 98, Carbon Dioxide Level 27, Anion Gap 17H , Blood Urea Nitrogen 90H, Creatinine 9.3H, Estimat Glomerular Filtration Rate 5.2, Glucose Level 124H, Lactic Acid Level 0.40, Calcium Level 8.7, Phosphorus Level 6.4H, Magnesium Level 2.7H, Total Bilirubin 0.6, Gamma Glutamyl Transpeptidase 425H, Aspartate Amino Transf (AST/SGOT) 157H, Alanine Aminotransferase (ALT/SGPT) 40, Alkaline Phosphatase 384H, Troponin I 0.185H, C- Reactive Protein, Quantitative 5.3H, Pro-B-Type Natriuretic Peptide 86763C, Total Protein 8.2, Albumin 3.3L, Globulin 4.9, Albumin/Globulin Ratio 0.7L Height (Feet): 5 Height (Inches): 7.00 Weight (Pounds): 248 General Appearance: lethargic EENT: normal ENT inspection Neck: normal alignment Cardiovascular: normal rate, regular rhythm Extremities: normal inspection Skin: normal pigmentation Roderick Henning DO Feb 25, 2020 09:06
[2020-02-25] MEDS: Pantoprazole Inj IVP SCH ×2 (09:11→21:15)
[2020-02-25] MEDS: Azithromycin 250mg tab NG SCH (09:12)
[2020-02-25] MEDS: Acetaminophen 650mg/20.3ml GT PRN (09:13)
--- NOTE | 2020-02-25 09:30 | NUR ---
NURSE NOTES: late entry: BLOOD SUGAR 115, 2 UNITS GIVEN. PT ASYMPTOMATIC.
--- NOTE | 2020-02-25 10:05 | Pulmonolgy Critical Care Note ---
Critical Care - Asmt/Plan Problems: (1) COVID-19 virus infection (2) Acute respiratory failure (3) Sepsis (4) ESRD (end stage renal disease) on dialysis (5) Accelerated hypertension (6) Decubital ulcer (7) Pacemaker (8) Diabetes (9) Blindness of both eyes (10) Morbid obesity (11) HTN (hypertension) Respiratory: monitor respiratory rate, adjust FIO2, CXR Cardiac: continue pressors, continue to monitor HR/BP Renal: F/U I&O Infectious Disease: check cultures, add antibiotics Gastrointestinal: continue feedings/current rate Endocrine: monitor blood sugar Hematologic: monitor H/H, transfuse if hgb<8.5 Neurologic: keep patient comfortable Disposition: keep in ICU Time Spent (Minutes): 40 Notes Reviewed: redye hand, cardio, 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, consultants, casework managerfarm facility manager - Objective Last 24 Hour Vital Signs Date Time Temp Pulse Resp B/P (MAP) Pulse Ox O2 Delivery O2 Flow Rate FiO2 02/25/20 08:30 61 16 145/69 (94) 100 02/25/20 08:00 99.5 61 15 141/53 (82) 100 02/25/20 08:00 60 02/25/20 08:00 30 02/25/20 07:02 60 16 30 02/25/20 07:00 62 16 131/47 (75) 100 02/25/20 06:30 64 16 02/25/20 06:00 63 18 135/48 (77) 100 02/25/20 05:30 60 18 30 02/25/20 05:00 68 18 130/54 (79) 100 02/25/20 04:00 Mechanical Ventilator 02/25/20 04:00 30 02/25/20 04:00 97.9 65 18 149/50 (83) 100 02/25/20 03:30 62 17 30 02/25/20 03:07 63 02/25/20 03:00 64 18 126/51 (76) 99 02/25/20 02:00 64 17 157/52 (87) 99 02/25/20 01:00 65 18 137/51 (79) 100 02/25/20 00:55 62 18 30 02/25/20 00:00 Mechanical Ventilator 02/25/20 00:00 98.1 62 18 131/56 (81) 100 02/24/20 23:30 64 19 30 02/24/20 23:08 64 02/24/20 23:00 64 15 124/64 (84) 98 02/24/20 22:00 66 15 138/41 (73) 99 02/24/20 21:36 99.8 02/24/20 21:30 78 19 30 02/24/20 21:00 71 18 146/48 (80) 100 02/24/20 20:00 Mechanical Ventilator 02/24/20 20:00 100.0 74 18 127/68 (87) 100 02/24/20 20:00 30 02/24/20 19:30 77 18 30 02/24/20 19:20 74 02/24/20 19:00 72 18 163/70 (101) 99 02/24/20 18:00 100.9 74 19 153/50 (84) 98 02/24/20 17:30 77 17 143/66 (91) 99 02/24/20 17:03 85 20 30 02/24/20 17:00 80 23 167/60 (95) 99 02/24/20 16:00 Mechanical Ventilator 02/24/20 16:00 73 02/24/20 16:00 30 02/24/20 16:00 98.9 74 17 131/66 (87) 99 02/24/20 15:30 74 17 119/72 (88) 98 02/24/20 15:00 77 17 149/61 (90) 100 02/24/20 14:30 77 18 30 02/24/20 14:00 61 16 142/61 (88) 99 02/24/20 13:14 64 16 30 02/24/20 13:00 73 16 137/56 (83) 99 02/24/20 12:30 71 16 151/54 (86) 100 02/24/20 12:00 99.5 71 16 161/53 (89) 100 02/24/20 12:00 Mechanical Ventilator 02/24/20 12:00 30 02/24/20 12:00 87 02/24/20 11:00 73 16 139/50 (79) 100 02/24/20 10:45 73 16 30 Status: sedated Condition: critical Neck: full ROM Heart: HR/BP stable Abdomen: soft, active bowel sounds Extremities: no C/C/E Micro: Microbiology Date/Time Source Procedure Growth Status 02/23/20 04:15 Sputum Gram Stain - Final Complete 02/23/20 04:15 Sputum Sputum Culture - Final NORMAL UPPER RESPIRATORY REX PRESENT Complete Accucheck: 126 Critical Care - Subjective ROS Limited/Unobtainable: Yes Condition: critical EKG Rhythm: Sinus Rhythm FI02: 30 Vent Support Breath Rate: 16 Vent Support Mode: AC Vent Tidal Volume: 600 Sputum Amount: Small PEEP: 0.0 PIP: 22 Tube Feeding Amount: 35 I&O: Intake and Output 02/24/20 02/25/20 18:59 06:59 Intake Total 722 ml 605 ml Output Total 20 ml 35 ml Balance 702 ml 570 ml Intake Free Water 100 ml 30 ml IV Total 112 ml 55 ml Tube Feeding 420 ml 420 ml Other 90 ml 100 ml Output Urine Total 20 ml 35 ml # Bowel Movements 1 CXR: NO CHANGE. ET-Tube: 7.5 ET Position: 25 Labs: Laboratory Tests Test 02/25/20 04:00 White Blood Count 6.5 K/UL (4.8-10.8) Red Blood Count 4.71 M/UL (4.20-5.40) Hemoglobin 11.4 G/DL (12.0-16.0) L Hematocrit 36.2 % (37.0-47.0) L Mean Corpuscular Volume 77 FL (80-99) L Mean Corpuscular Hemoglobin 24.2 PG (27.0-31.0) L Mean Corpuscular Hemoglobin Concent 31.5 G/DL (32.0-36.0) L Red Cell Distribution Width 15.5 % (11.6-14.8) H Platelet Count 181 K/UL (150-450) Mean Platelet Volume 8.4 FL (6.5-10.1) Neutrophils (%) (Auto) % (45.0-75.0) Lymphocytes (%) (Auto) % (20.0-45.0) Monocytes (%) (Auto) % (1.0-10.0) Eosinophils (%) (Auto) % (0.0-3.0) Basophils (%) (Auto) % (0.0-2.0) Differential Total Cells Counted 100 Neutrophils % (Manual) 61 % (45-75) Lymphocytes % (Manual) 19 % (20-45) L Monocytes % (Manual) 18 % (1-10) H Eosinophils % (Manual) 1 % (0-3) Basophils % (Manual) 1 % (0-2) Band Neutrophils 0 % (0-8) Platelet Estimate Adequate Platelet Morphology Normal Microcytosis 1+ Sodium Level 142 MMOL/L (136-145) Potassium Level 5.4 MMOL/L (3.5-5.1) H Chloride Level 98 MMOL/L (98-107) Carbon Dioxide Level 27 MMOL/L (21-32) Anion Gap 17 mmol/L (5-15) H Blood Urea Nitrogen 90 mg/dL (7-18) H Creatinine 9.3 MG/DL (0.55-1.30) H Estimat Glomerular Filtration Rate 5.2 mL/min (>60) Glucose Level 124 MG/DL (74-106) H Lactic Acid Level 0.40 mmol/L (0.4-2.0) Calcium Level 8.7 MG/DL (8.5-10.1) Phosphorus Level 6.4 MG/DL (2.5-4.9) H Magnesium Level 2.7 MG/DL (1.8-2.4) H Total Bilirubin 0.6 MG/DL (0.2-1.0) Gamma Glutamyl Transpeptidase 425 U/L (5-85) H Aspartate Amino Transf (AST/SGOT) 157 U/L (15-37) H Alanine Aminotransferase (ALT/SGPT) 40 U/L (12-78) Alkaline Phosphatase 384 U/L (46-116) H Troponin I 0.185 ng/mL (0.000-0.056) C-Reactive Protein, Quantitative 5.3 mg/dL (0.00-0.90) H Pro-B-Type Natriuretic Peptide 87617 pg/mL (0-125) H Total Protein 8.2 G/DL (6.4-8.2) Albumin 3.3 G/DL (3.4-5.0) L Globulin 4.9 g/dL Albumin/Globulin Ratio 0.7 (1.0-2.7) L Meghana Murillo MD Feb 25, 2020 10:05
[2020-02-25] MEDS: Pyridoxine 50mg tab NG SCH (11:38)
--- NOTE | 2020-02-25 11:38 | NUR ---
NURSE NOTES: Received delivery from pharmacy for scheduled a.m medication vitamin B6. administered to pt po via ngt.
[2020-02-25] MEDS: Renvela 800mg Pkt NG SCH ×3 (12:33→23:40)
[2020-02-25] MEDS: Thiamine HCl 100 MG in D5W 55 ML IVPB SCH (12:34)
--- NOTE | 2020-02-25 12:51 | Nephrology Progress Note ---
Assessment/Plan Problem List: (1) Acute respiratory failure (2) ESRD (end stage renal disease) on dialysis (3) UTI (urinary tract infection) (4) Patient is Taoism (5) Pacemaker (6) Diabetes (7) Obesity (BMI 30-39.9) Assessment ARDS (adult respiratory distress syndrome) Fever Sepsis UTI (urinary tract infection) Respiratory failure, intubated on ventilator Thrombocytopenia Lymphopenia End stage renal disease on dialysis. Has a right upper arm dialysis fistula as Acces . Getting dialysis Sunday. morbid obesity Anemia / Jehova's witness CAD previous stent HTN- hypertensive urgency upon arrival to [facility]. s/p AVG DM 2 bilateral eye blindness h/o CHF Pacemaker Plan Patient positive for Covid 19 Per ID and pulmonary, ventilator adjustment Dialyzed again on February 21 and 4 L ultrafiltration done next dialysis February 24 EPO, thiamin and b6 Phos binders NGT feeding per consultants Remains full code at this time Subjective ROS Limited/Unobtainable: Yes Objective Objective Last 24 Hour Vital Signs Date Time Temp Pulse Resp B/P (MAP) Pulse Ox O2 Delivery O2 Flow Rate FiO2 02/25/20 12:00 Mechanical Ventilator 02/25/20 12:00 30 02/25/20 12:00 60 16 115/60 (78) 100 02/25/20 12:00 60 02/25/20 11:00 60 16 112/49 (70) 100 02/25/20 10:50 68 18 100 Mechanical Ventilator 30 02/25/20 10:49 65 18 30 02/25/20 10:00 64 17 146/53 (84) 100 02/25/20 09:43 99.9 02/25/20 09:00 100.5 64 16 133/55 (81) 100 02/25/20 09:00 68 20 30 02/25/20 08:30 61 16 145/69 (94) 100 02/25/20 08:00 Mechanical Ventilator 02/25/20 08:00 99.5 61 15 141/53 (82) 100 02/25/20 08:00 60 02/25/20 08:00 30 02/25/20 07:02 60 16 30 02/25/20 07:00 62 16 131/47 (75) 100 02/25/20 06:30 64 16 02/25/20 06:00 63 18 135/48 (77) 100 02/25/20 05:30 60 18 30 02/25/20 05:00 68 18 130/54 (79) 100 02/25/20 04:00 Mechanical Ventilator 02/25/20 04:00 30 02/25/20 04:00 97.9 65 18 149/50 (83) 100 02/25/20 03:30 62 17 30 02/25/20 03:07 63 02/25/20 03:00 64 18 126/51 (76) 99 02/25/20 02:00 64 17 157/52 (87) 99 02/25/20 01:00 65 18 137/51 (79) 100 02/25/20 00:55 62 18 30 02/25/20 00:00 Mechanical Ventilator 02/25/20 00:00 98.1 62 18 131/56 (81) 100 02/24/20 23:30 64 19 30 02/24/20 23:08 64 02/24/20 23:00 64 15 124/64 (84) 98 02/24/20 22:00 66 15 138/41 (73) 99 02/24/20 21:36 99.8 02/24/20 21:30 78 19 30 02/24/20 21:00 71 18 146/48 (80) 100 02/24/20 20:00 Mechanical Ventilator 02/24/20 20:00 100.0 74 18 127/68 (87) 100 02/24/20 20:00 30 02/24/20 19:30 77 18 30 02/24/20 19:20 74 02/24/20 19:00 72 18 163/70 (101) 99 02/24/20 18:00 100.9 74 19 153/50 (84) 98 02/24/20 17:30 77 17 143/66 (91) 99 02/24/20 17:03 85 20 30 02/24/20 17:00 80 23 167/60 (95) 99 02/24/20 16:00 Mechanical Ventilator 02/24/20 16:00 73 02/24/20 16:00 30 02/24/20 16:00 98.9 74 17 131/66 (87) 99 02/24/20 15:30 74 17 119/72 (88) 98 02/24/20 15:00 77 17 149/61 (90) 100 02/24/20 14:30 77 18 30 02/24/20 14:00 61 16 142/61 (88) 99 02/24/20 13:14 64 16 30 02/24/20 13:00 73 16 137/56 (83) 99 Intake and Output 02/24/20 02/25/20 19:00 07:00 Intake Total 722 ml 605 ml Output Total 30 ml 25 ml Balance 692 ml 580 ml Intake Free Water 100 ml 30 ml IV Total 112 ml 55 ml Tube Feeding 420 ml 420 ml Other 90 ml 100 ml Output Urine Total 30 ml 25 ml # Bowel Movements 2 Laboratory Tests 02/25/20 04:00: White Blood Count 6.5, Red Blood Count 4.71, Hemoglobin 11.4L, Hematocrit 36.2L , Mean Corpuscular Volume 77L, Mean Corpuscular Hemoglobin 24.2L, Mean Corpuscular Hemoglobin Concent 31.5L, Red Cell Distribution Width 15.5H, Platelet Count 181, Mean Platelet Volume 8.4, Neutrophils (%) (Auto) , Lymphocytes (%) (Auto) , Monocytes (%) (Auto) , Eosinophils (%) (Auto) , Basophils (%) (Auto) , Differential Total Cells Counted 100, Neutrophils % ( Manual) 61, Lymphocytes % (Manual) 19L, Monocytes % (Manual) 18H, Eosinophils % (Manual) 1, Basophils % (Manual) 1, Band Neutrophils 0, Platelet Estimate Adequate, Platelet Morphology Normal, Microcytosis 1+, Sodium Level 142, Potassium Level 5.4H, Chloride Level 98, Carbon Dioxide Level 27, Anion Gap 17H , Blood Urea Nitrogen 90H, Creatinine 9.3H, Estimat Glomerular Filtration Rate 5.2, Glucose Level 124H, Lactic Acid Level 0.40, Calcium Level 8.7, Phosphorus Level 6.4H, Magnesium Level 2.7H, Total Bilirubin 0.6, Gamma Glutamyl Transpeptidase 425H, Aspartate Amino Transf (AST/SGOT) 157H, Alanine Aminotransferase (ALT/SGPT) 40, Alkaline Phosphatase 384H, Troponin I 0.185H, C- Reactive Protein, Quantitative 5.3H, Pro-B-Type Natriuretic Peptide 27037H, Total Protein 8.2, Albumin 3.3L, Globulin 4.9, Albumin/Globulin Ratio 0.7L Height (Feet): 5 Height (Inches): 7.00 Weight (Pounds): 248 General Appearance: no apparent distress EENT: other Cardiovascular: tachycardia Respiratory/Chest: decreased breath sounds - Intubated and vented Bryan Hunter MD Feb 25, 2020 12:51
--- NOTE | 2020-02-25 12:55 | NUR ---
NURSE NOTES: LATE ENTRY: PT IN BED, CALM. RESPONSIVE TO SHAKING. NODS TO SIMPE COMMANDS. VS HR 60, BP 115/60, RR 17, SP02 100. PT FOLLOWS SIMPLE COMMANDS. INTUBATED ETTUBE 7.5, 25 CM AT LIP. AC 16, VT 600, FI02 30%. SECRETIONS THICK, GLOVER. NEPRO RUNNING AT 35ML/HR. NO RESIDUALS. DE ANDA DRAINING MINIMAL URINE. DARK MERYL. BILATERAL SOFT WRIST RESTRAINTS, NOTED. AIR BOURNE AND CONTACT ISOLATION IN PLACE. CALL LIGHT IN REACH. BED ALARM ON. LOCKED AND IN LOW POSITION. WILL CONTINUE TO
--- NOTE | 2020-02-25 13:52 | NUR ---
CASE MANAGEMENT:REVIEW SI; COVID-19 VIRUS INFECTION. AC RESP FAILURE. SEPSIS. RESPIRATORY FAILURE ~ ORALLY INTUBATED 100.5 68 20 145/69 100% MECH VENT AC 16 TV 600 PEEP 0 FIO2 @ 50% NA 5.4 BUN 90 CR 9.3 PHOS 5.3 BNP 34823 TROP 0.185 IS;PLAQUENIL NG BID ERTAPENEM IV Q24 HRS THIAMINE IV Q24 HRS HEPARIN SUBQ Q12 HRS AMIKACIN QD PER PROTOCOL DILAUDID IV Q4 HRS PRN VANCOMYCIN IV QD PER PROTOCOL DUO NEB HHN Q4 HRS PRN LORAZEPAM IV Q2 HRS PRN ICU STATUS DCP;FROM [facility]
--- NOTE | 2020-02-25 14:00 | NUR ---
NURSE NOTES: LATE ENTRY: PT CALM, IN BED. NO SOB OR LABORED BREATHING. VSS. WILL CONTINUE TO MONITOR PT CLOSELY. FAMILY CALLED TO CHECK IN ON PT, PT STABLE. WILL CALL AGAIN
--- NOTE | 2020-02-25 14:13 | Infectious Diseases Prog Note ---
Assessment/Plan Assessment/Plan ASSESSMENT: The patient is a 64-year-old female with COVID-19. SARS-CoV PCR positive. Pneumonia Fever No leukocytosis -02/20 CXR: Mild pulmonary vascular congestion with subtle bilateral haziness , not significantly changed.Possible tiny pleural effusions. Cardiomegaly. -Bcx ngtd -sp cx normal gui Less likely UTI u/a wbc tnct, nit +, leuk +3; ucx cindy(colonizer) Hx of positive blood culture CONS ,persistent 02/04 BCx: CoNS 01/30 Bc: (1/2)CoNS and Citrobacter 01/27 , 02/01 Bc: CoNS - (outside facility, # of the +ve cultures are not clear) A 2D echo from outside facility did not show any evidence of vegetation as per Carido pt is high risk for CLAY: ( last admission ) Diabetes. CHF. ESRD. Hypertension. Obesity. PLAN: Plaquenil+azithromycin #2. QTc 450 Ertapanem #6/7 02/24 DC amikacin #6 continue the patient on vancomycin, day # ? ( will Rx for probable SBE) Monitor CBC. Monitor BMP. Monitor cultures (blood, Sp ) Airborne. Contact plus Isolation DW RN Subjective Allergies: Coded Allergies: NO KNOWN ALLERGIES (Unverified Allergy, Unknown, 10/15/15) Subjective Tmax 100.5 FiO2 down to 30% No leukocytosis awake no pressors Objective Vital Signs Last 24 Hour Vital Signs Date Time Temp Pulse Resp B/P (MAP) Pulse Ox O2 Delivery O2 Flow Rate FiO2 02/25/20 13:30 60 15 128/79 (95) 99 02/25/20 13:14 60 17 30 02/25/20 13:00 97.9 60 17 118/58 (78) 100 02/25/20 12:00 Mechanical Ventilator 02/25/20 12:00 30 02/25/20 12:00 60 16 115/60 (78) 100 02/25/20 12:00 60 02/25/20 11:00 60 16 112/49 (70) 100 02/25/20 10:50 68 18 100 Mechanical Ventilator 30 02/25/20 10:49 65 18 30 02/25/20 10:00 64 17 146/53 (84) 100 02/25/20 09:43 99.9 02/25/20 09:00 100.5 64 16 133/55 (81) 100 02/25/20 09:00 68 20 30 02/25/20 08:30 61 16 145/69 (94) 100 02/25/20 08:00 Mechanical Ventilator 02/25/20 08:00 99.5 61 15 141/53 (82) 100 02/25/20 08:00 60 02/25/20 08:00 30 02/25/20 07:02 60 16 30 02/25/20 07:00 62 16 131/47 (75) 100 02/25/20 06:30 64 16 02/25/20 06:00 63 18 135/48 (77) 100 02/25/20 05:30 60 18 30 02/25/20 05:00 68 18 130/54 (79) 100 02/25/20 04:00 Mechanical Ventilator 02/25/20 04:00 30 02/25/20 04:00 97.9 65 18 149/50 (83) 100 02/25/20 03:30 62 17 30 02/25/20 03:07 63 02/25/20 03:00 64 18 126/51 (76) 99 02/25/20 02:00 64 17 157/52 (87) 99 02/25/20 01:00 65 18 137/51 (79) 100 02/25/20 00:55 62 18 30 02/25/20 00:00 Mechanical Ventilator 02/25/20 00:00 98.1 62 18 131/56 (81) 100 02/24/20 23:30 64 19 30 02/24/20 23:08 64 02/24/20 23:00 64 15 124/64 (84) 98 02/24/20 22:00 66 15 138/41 (73) 99 02/24/20 21:36 99.8 02/24/20 21:30 78 19 30 02/24/20 21:00 71 18 146/48 (80) 100 02/24/20 20:00 Mechanical Ventilator 02/24/20 20:00 100.0 74 18 127/68 (87) 100 02/24/20 20:00 30 02/24/20 19:30 77 18 30 02/24/20 19:20 74 02/24/20 19:00 72 18 163/70 (101) 99 02/24/20 18:00 100.9 74 19 153/50 (84) 98 02/24/20 17:30 77 17 143/66 (91) 99 02/24/20 17:03 85 20 30 02/24/20 17:00 80 23 167/60 (95) 99 02/24/20 16:00 Mechanical Ventilator 02/24/20 16:00 73 02/24/20 16:00 30 02/24/20 16:00 98.9 74 17 131/66 (87) 99 02/24/20 15:30 74 17 119/72 (88) 98 02/24/20 15:00 77 17 149/61 (90) 100 02/24/20 14:30 77 18 30 Height (Feet): 5 Height (Inches): 7.00 Weight (Pounds): 248 Objective General Appearance: no acute distress HEENT: normocephalic, atraumatic Respiratory/Chest: no respiratory distress, no accessory muscle use Abdomen: non distended Neuro: awake. moving extremities Microbiology Date/Time Source Procedure Growth Status 02/23/20 04:15 Sputum Gram Stain - Final Complete 02/23/20 04:15 Sputum Sputum Culture - Final NORMAL UPPER RESPIRATORY GUI PRESENT Complete Laboratory Tests Test 02/25/20 04:00 White Blood Count 6.5 K/UL (4.8-10.8) Red Blood Count 4.71 M/UL (4.20-5.40) Hemoglobin 11.4 G/DL (12.0-16.0) L Hematocrit 36.2 % (37.0-47.0) L Mean Corpuscular Volume 77 FL (80-99) L Mean Corpuscular Hemoglobin 24.2 PG (27.0-31.0) L Mean Corpuscular Hemoglobin Concent 31.5 G/DL (32.0-36.0) L Red Cell Distribution Width 15.5 % (11.6-14.8) H Platelet Count 181 K/UL (150-450) Mean Platelet Volume 8.4 FL (6.5-10.1) Neutrophils (%) (Auto) % (45.0-75.0) Lymphocytes (%) (Auto) % (20.0-45.0) Monocytes (%) (Auto) % (1.0-10.0) Eosinophils (%) (Auto) % (0.0-3.0) Basophils (%) (Auto) % (0.0-2.0) Differential Total Cells Counted 100 Neutrophils % (Manual) 61 % (45-75) Lymphocytes % (Manual) 19 % (20-45) L Monocytes % (Manual) 18 % (1-10) H Eosinophils % (Manual) 1 % (0-3) Basophils % (Manual) 1 % (0-2) Band Neutrophils 0 % (0-8) Platelet Estimate Adequate Platelet Morphology Normal Microcytosis 1+ Sodium Level 142 MMOL/L (136-145) Potassium Level 5.4 MMOL/L (3.5-5.1) H Chloride Level 98 MMOL/L (98-107) Carbon Dioxide Level 27 MMOL/L (21-32) Anion Gap 17 mmol/L (5-15) H Blood Urea Nitrogen 90 mg/dL (7-18) H Creatinine 9.3 MG/DL (0.55-1.30) H Estimat Glomerular Filtration Rate 5.2 mL/min (>60) Glucose Level 124 MG/DL (74-106) H Lactic Acid Level 0.40 mmol/L (0.4-2.0) Calcium Level 8.7 MG/DL (8.5-10.1) Phosphorus Level 6.4 MG/DL (2.5-4.9) H Magnesium Level 2.7 MG/DL (1.8-2.4) H Total Bilirubin 0.6 MG/DL (0.2-1.0) Gamma Glutamyl Transpeptidase 425 U/L (5-85) H Aspartate Amino Transf (AST/SGOT) 157 U/L (15-37) H Alanine Aminotransferase (ALT/SGPT) 40 U/L (12-78) Alkaline Phosphatase 384 U/L (46-116) H Troponin I 0.185 ng/mL (0.000-0.056) C-Reactive Protein, Quantitative 5.3 mg/dL (0.00-0.90) H Pro-B-Type Natriuretic Peptide 16613 pg/mL (0-125) H Total Protein 8.2 G/DL (6.4-8.2) Albumin 3.3 G/DL (3.4-5.0) L Globulin 4.9 g/dL Albumin/Globulin Ratio 0.7 (1.0-2.7) L Current Medications Medications (Trade) Dose Ordered Sig/Josi Route PRN Reason Start Time Stop Time Status Last Admin Dose Admin Acetaminophen (Tylenol) 650 mg Q4H PRN GT fever 02/25/20 06:30 03/26/20 06:29 02/25/20 09:13 Albuterol/ Ipratropium (Combivent Respimat) 1 puffs Q4H PRN INH Shortness of Breath 02/25/20 06:30 03/26/20 06:29 Amikacin Protocol (Amikacin pharmacy to dose) 1 ea DAILY PRN MISC Per rx protocol 02/25/20 06:30 03/26/20 06:29 Atorvastatin Calcium (Lipitor) 10 mg BEDTIME NG 02/25/20 21:00 05/25/20 20:59 Azithromycin (Zithromax) 250 mg DAILY NG 02/25/20 09:00 03/03/20 08:59 02/25/20 09:12 Epoetin Jose De Jesus (Epoetin Jose De Jesus(ESRD on dialysis)) 4,000 unit SUN-SUN-SUN SUBQ 02/25/20 21:00 05/25/20 20:59 Ertapenem 0.5 gm/ Sodium Chloride 55 ml @ 110 mls/hr Q24H IV 02/25/20 20:00 03/01/20 19:59 Heparin Sodium (Porcine) (Heparin 5000 units/ml) 5,000 units EVERY 12 HOURS SUBQ 02/25/20 09:00 04/10/20 08:59 Hydralazine HCl (Apresoline) 10 mg Q4H PRN IV Blood pressure over 160 systol 02/25/20 06:30 05/25/20 06:29 Hydromorphone HCl (Dilaudid) 0.5 mg Q4H PRN IVP For Pain 02/25/20 06:30 03/03/20 06:29 Hydroxychloroquine Sulfate (Plaquenil) 200 mg BID NG 02/25/20 18:00 02/29/20 09:01 Insulin Aspart (NovoLOG) BEFORE MEALS AND HS SUBQ 02/20/20 12:30 05/20/20 12:29 02/25/20 13:32 Labetalol HCl (Normodyne) 20 mg Q1H PRN IV sbp more than 180mmHg 02/25/20 06:30 03/26/20 06:29 Lorazepam (Ativan 2mg/ml 1ml) 2 mg Q2H PRN IV For Anxiety 02/25/20 06:30 03/03/20 06:29 02/25/20 09:13 Ondansetron HCl (Zofran) 4 mg Q6H PRN IVP Nausea & Vomiting 02/25/20 06:30 03/26/20 06:29 Pantoprazole (Protonix) 40 mg Q12HR IVP 02/25/20 09:00 03/26/20 08:59 02/25/20 09:11 Pyridoxine HCl (Vitamin B6) 50 mg DAILY NG 02/25/20 09:00 03/26/20 08:59 02/25/20 11:38 Sevelamer Carbonate (Renvela) 800 mg Q6HR NG 02/25/20 12:00 05/25/20 11:59 02/25/20 12:33 Thiamine HCl 100 mg/Dextrose 56 ml @ 112 mls/hr Q24H IVPB 02/25/20 12:00 03/26/20 11:59 02/25/20 12:34 Vancomycin HCl (Vanco rx to dose) 1 ea DAILY PRN MISC . 02/25/20 06:30 03/26/20 06:29 Clarice Nicolas MD Feb 25, 2020 14:13
--- NOTE | 2020-02-25 16:20 | NUR ---
NURSE NOTES: LATE ENTRY: PT IN BED, COUGHING NOTED, SUCTIONED AIRWAY, THICK GLOVER SECRETIONS NOTED. TEMP TRENDING DOWN. COOLING MEASURES EFFECTIVE.DRESSING ON HEELS CHANGED. WILL CONTINUE TO MONITOR PT CLOSELY.
--- NOTE | 2020-02-25 16:30 | NUR ---
NURSE NOTES: late entry: BLOOD SUGAR 120, 2 UNITS GIVEN. PT ASYMPTOMATIC
--- NOTE | 2020-02-25 16:36 | Cardiology Progress Note ---
Assessment/Plan Assessment/Plan 1. Respiratory failure. 2. History of obesity hypoventilation syndrome. 3. History of pulmonary hypertension previously. 4. Urinary tract infection. 5. covid 19 infection confimred 6. Questionable pneumonia. 7. History of bacteremia with Staph epi recently on 02/05/2020. i did not examine pt personally i did not feel the risk to me personally are worth the limited information that could be obtained while pt is not communicative and on a vent with confirmed covid 19 tele reviewed sinus hemodynamically fine d/w rn sat are fine no indication for hypoxemia to be concerning of worsening respiratory issues or developing chf as 30% of covid 19 pt can develop sats are 99- 100% on 30% fio2 still no weaning perfomred today low grade fever on abx holding off in ordering echo at this time due to active covid 19 infecion watch bp after dc of meds hr is fine , sat are fine ewean whe feasible i saw her from out side the door looks quite comfortable all labs reviewed looks stable Subjective ROS Limited/Unobtainable: Yes Objective Last 24 Hour Vital Signs Date Time Temp Pulse Resp B/P (MAP) Pulse Ox O2 Delivery O2 Flow Rate FiO2 02/25/20 16:00 Mechanical Ventilator 02/25/20 16:00 30 02/25/20 16:00 65 02/25/20 16:00 63 16 132/58 (82) 100 02/25/20 15:04 66 16 30 02/25/20 15:00 61 15 131/51 (77) 100 02/25/20 14:00 61 16 133/59 (83) 100 02/25/20 13:30 60 15 128/79 (95) 99 02/25/20 13:14 60 17 30 02/25/20 13:00 97.9 60 17 118/58 (78) 100 02/25/20 12:00 Mechanical Ventilator 02/25/20 12:00 30 02/25/20 12:00 60 16 115/60 (78) 100 02/25/20 12:00 60 02/25/20 11:00 60 16 112/49 (70) 100 02/25/20 10:50 68 18 100 Mechanical Ventilator 30 02/25/20 10:49 65 18 30 02/25/20 10:00 64 17 146/53 (84) 100 02/25/20 09:43 99.9 4/1/20 09:00 100.5 64 16 133/55 (81) 100 02/25/20 09:00 68 20 30 02/25/20 08:30 61 16 145/69 (94) 100 02/25/20 08:00 Mechanical Ventilator 02/25/20 08:00 99.5 61 15 141/53 (82) 100 02/25/20 08:00 60 02/25/20 08:00 30 02/25/20 07:02 60 16 30 02/25/20 07:00 62 16 131/47 (75) 100 02/25/20 06:30 64 16 02/25/20 06:00 63 18 135/48 (77) 100 02/25/20 05:30 60 18 30 02/25/20 05:00 68 18 130/54 (79) 100 02/25/20 04:00 Mechanical Ventilator 02/25/20 04:00 30 02/25/20 04:00 97.9 65 18 149/50 (83) 100 02/25/20 03:30 62 17 30 02/25/20 03:07 63 02/25/20 03:00 64 18 126/51 (76) 99 02/25/20 02:00 64 17 157/52 (87) 99 02/25/20 01:00 65 18 137/51 (79) 100 02/25/20 00:55 62 18 30 02/25/20 00:00 Mechanical Ventilator 02/25/20 00:00 98.1 62 18 131/56 (81) 100 02/24/20 23:30 64 19 30 02/24/20 23:08 64 02/24/20 23:00 64 15 124/64 (84) 98 02/24/20 22:00 66 15 138/41 (73) 99 02/24/20 21:36 99.8 02/24/20 21:30 78 19 30 02/24/20 21:00 71 18 146/48 (80) 100 02/24/20 20:00 Mechanical Ventilator 02/24/20 20:00 100.0 74 18 127/68 (87) 100 02/24/20 20:00 30 02/24/20 19:30 77 18 30 02/24/20 19:20 74 02/24/20 19:00 72 18 163/70 (101) 99 02/24/20 18:00 100.9 74 19 153/50 (84) 98 02/24/20 17:30 77 17 143/66 (91) 99 02/24/20 17:03 85 20 30 02/24/20 17:00 80 23 167/60 (95) 99 General Appearance: no apparent distress, alert, on vent, patient on isolation Intake and Output 02/24/20 02/25/20 19:00 07:00 Intake Total 722 ml 605 ml Output Total 30 ml 25 ml Balance 692 ml 580 ml Intake Free Water 100 ml 30 ml IV Total 112 ml 55 ml Tube Feeding 420 ml 420 ml Other 90 ml 100 ml Output Urine Total 30 ml 25 ml # Bowel Movements 2 Laboratory Tests Test 02/25/20 04:00 White Blood Count 6.5 K/UL (4.8-10.8) Red Blood Count 4.71 M/UL (4.20-5.40) Hemoglobin 11.4 G/DL (12.0-16.0) L Hematocrit 36.2 % (37.0-47.0) L Mean Corpuscular Volume 77 FL (80-99) L Mean Corpuscular Hemoglobin 24.2 PG (27.0-31.0) L Mean Corpuscular Hemoglobin Concent 31.5 G/DL (32.0-36.0) L Red Cell Distribution Width 15.5 % (11.6-14.8) H Platelet Count 181 K/UL (150-450) Mean Platelet Volume 8.4 FL (6.5-10.1) Neutrophils (%) (Auto) % (45.0-75.0) Lymphocytes (%) (Auto) % (20.0-45.0) Monocytes (%) (Auto) % (1.0-10.0) Eosinophils (%) (Auto) % (0.0-3.0) Basophils (%) (Auto) % (0.0-2.0) Differential Total Cells Counted 100 Neutrophils % (Manual) 61 % (45-75) Lymphocytes % (Manual) 19 % (20-45) L Monocytes % (Manual) 18 % (1-10) H Eosinophils % (Manual) 1 % (0-3) Basophils % (Manual) 1 % (0-2) Band Neutrophils 0 % (0-8) Platelet Estimate Adequate Platelet Morphology Normal Microcytosis 1+ Sodium Level 142 MMOL/L (136-145) Potassium Level 5.4 MMOL/L (3.5-5.1) H Chloride Level 98 MMOL/L (98-107) Carbon Dioxide Level 27 MMOL/L (21-32) Anion Gap 17 mmol/L (5-15) H Blood Urea Nitrogen 90 mg/dL (7-18) H Creatinine 9.3 MG/DL (0.55-1.30) H Estimat Glomerular Filtration Rate 5.2 mL/min (>60) Glucose Level 124 MG/DL (74-106) H Lactic Acid Level 0.40 mmol/L (0.4-2.0) Calcium Level 8.7 MG/DL (8.5-10.1) Phosphorus Level 6.4 MG/DL (2.5-4.9) H Magnesium Level 2.7 MG/DL (1.8-2.4) H Total Bilirubin 0.6 MG/DL (0.2-1.0) Gamma Glutamyl Transpeptidase 425 U/L (5-85) H Aspartate Amino Transf (AST/SGOT) 157 U/L (15-37) H Alanine Aminotransferase (ALT/SGPT) 40 U/L (12-78) Alkaline Phosphatase 384 U/L (46-116) H Troponin I 0.185 ng/mL (0.000-0.056) C-Reactive Protein, Quantitative 5.3 mg/dL (0.00-0.90) H Pro-B-Type Natriuretic Peptide 15976 pg/mL (0-125) H Total Protein 8.2 G/DL (6.4-8.2) Albumin 3.3 G/DL (3.4-5.0) L Globulin 4.9 g/dL Albumin/Globulin Ratio 0.7 (1.0-2.7) L Microbiology Date/Time Source Procedure Growth Status 02/23/20 04:15 Sputum Gram Stain - Final Complete 02/23/20 04:15 Sputum Sputum Culture - Final NORMAL UPPER RESPIRATORY REX PRESENT Complete Wilfredo Reyna MD Feb 25, 2020 16:36
--- NOTE | 2020-02-25 17:20 | NUR ---
NURSE NOTES: LATE ENTRY: MD KRUSE HERE TO SEE PT. WAS INFORMED PT PVC'S, OCCASIONAL SINUS JACQUIE TO 58, PACER CAPTURING, TROPONIN 0.185. PT SCHEDULED FOR H.D THIS EVENING. NO WEANING TODAY. BP STABLE.
--- NOTE | 2020-02-25 18:15 | NUR ---
NURSE NOTES: H.D NURSE HERE TO START H.D. PT IN NO ACUTE DISTRESS. HR 70, BP 147/65
--- NOTE | 2020-02-25 19:10 | NUR ---
HAND-OFF: Report given to JOSH Downing PT IN NO ACUTE DISTRESS. H.D IN PROCESS.
--- NOTE | 2020-02-25 19:30 | NUR ---
NURSE NOTES: Received pt awake with hemodialysis on progress, bp 118/47 A paced on the monitor. Orally intubated on ac mode. suctioned tk whitish to beige secretions moderate in amt. 02 sat 100% hOB kept elevated. watch for any resp. distress.Tolerated NGt fdg at this time. HOB kept elevated. On aspiration precaution. Oral care done
[2020-02-25] MEDS: Ertapenem 500mg ivpb (q24h) IV SCH ×2 (20:26)
[2020-02-25] MEDS ORDERED: Epoetin Alfa-EPBX(ESRD on dialysis)10,000 unit/ml vial SUBQ SCH ×2 (21:00)
--- NOTE | 2020-02-25 21:00 | NUR ---
NURSE NOTES: Hemodialsis was done -2Liters out. pt tolerating well.
[2020-02-25] MEDS: Epoetin Alfa-EPBX(ESRD on dialysis)3000 units/ml vial SUBQ SCH (21:16)
--- NOTE | 2020-02-25 23:00 | NUR ---
NURSE NOTES: turned q 2hrs prn with good skin care done.Bilateral soft wrist restrained maintained for safety.
[2020-02-25] MEDS ORDERED: Vancomycin 1gm/D5W 275ml IVPB ONE ×2 (23:30)
[2020-02-26] VITALS (29 sets, daily range): BP systolic 94–156; BP diastolic 30–76
--- NOTE | 2020-02-26 01:00 | NUR ---
NURSE NOTES: Resting well at this time with vss. afebrile.
[2020-02-26] MEDS: Acetaminophen 650mg/20.3ml GT PRN ×3 (02:59→17:16)
--- NOTE | 2020-02-26 02:59 | NUR ---
NURSE NOTES: Temp 100.7- tylenol 650mg Through NGT was given. Cooling measures started with cooling blankett.
--- NOTE | 2020-02-26 03:45 | NUR ---
NURSE NOTES: Temp 100F. Bp stable on A paced.complete bed bath with bed changed was done.
--- NOTE | 2020-02-26 05:00 | NUR ---
NURSE NOTES: Am labs drawn. temp 99.4F at this time.
[2020-02-26 05:39] LABS: BASOPHILS % (AUTO) 0.9 % (0.0-2.0); EOSINOPHILS % (AUTO) 1.3 % (0.0-3.0); HEMOGLOBIN 10.8 G/DL (12.0-16.0); LYMPHOCYTES % (AUTO) 20.4 % (20.0-45.0); MEAN CORPUSCULAR VOLUME 76 FL (80-99); MONOCYTES % (AUTO) 17.8 % (1.0-10.0); NEUTROPHILS % (AUTO) 59.6 % (45.0-75.0); PLATELET COUNT 177 K/UL (150-450); RED BLOOD COUNT 4.49 M/UL (4.20-5.40); RED CELL DISTRIBUTION WIDTH 15.5 % (11.6-14.8)
[2020-02-26 05:55] LABS: ANION GAP 9 mmol/L (5-15); BLOOD UREA NITROGEN 67 mg/dL (7-18); CALCIUM 8.9 MG/DL (8.5-10.1); CARBON DIOXIDE 32 MMOL/L (21-32); CHLORIDE 97 MMOL/L (98-107); CREATININE 7.4 MG/DL (0.55-1.30); POTASSIUM 4.6 MMOL/L (3.5-5.1); SODIUM 138 MMOL/L (136-145)
--- NOTE | 2020-02-26 06:00 | NUR ---
NURSE NOTES: accucheck 118mg/dl covered with Nov flexpen 2units subcut.
[2020-02-26] MEDS: Renvela 800mg Pkt NG SCH ×3 (06:26→17:02)
[2020-02-26] MEDS: NovoLOG Insulin Flexpen SUBQ SCH ×4 (06:27→21:00)
--- NOTE | 2020-02-26 07:15 | NUR ---
NURSE NOTES: Received report from NATHALIA Hunter. Patient visually assessed from outside of the room at this time. Patient remains on airborne isolation for Covid-19. Patient appears to be sleeping at this time, eyes closed. VS stable on cardiac exercise specialist. Patient is orally intubated, with vent settings AC 16, TV 600, FiO2 30%, no PEEP. Patient is saturating 100% at this time. NGT noted on the right nares, infusing Nepro at 35ml/hr. HOB elevated. Tyler catheter noted. Bed is alarmed, side rails up x3. Will continue to assess and monitor patient.
--- NOTE | 2020-02-26 07:20 | NUR ---
HAND-OFF: Report given to Lucita SLOAN for continuity of care..
[2020-02-26] MEDS: Azithromycin 250mg tab NG SCH (08:48)
[2020-02-26] MEDS: Pantoprazole Inj IVP SCH ×2 (08:48→20:35)
[2020-02-26] MEDS: Pyridoxine 50mg tab NG SCH (08:48)
[2020-02-26] MEDS: Heparin 5000 units/ml inj SUBQ SCH ×2 (08:50→20:35)
--- NOTE | 2020-02-26 09:23 | NUR ---
NURSE NOTES: Patient appears to be sleeping at this time, opens eyes to verbal stimuli and tracks. Patient is orally intubated ET 7.5 at 25cm left side of lip line. Patient is tolerating vent settings at this time: AC 16, TV 600, FiO2 30%, no PEEP. Patient is saturating 100%. Patient is noted to be febrile, 100.9 axillary, 101F per rectal probe. Cooling blanket turned on at this time, cooling measures applied and Tylenol given. NGT on the right nares intact, patent, TF Nepro infusing at 35ml/hr. HOB elevated. Oral care provided. Right upper arm AV shunt noted with good bruit and thrill. Peripheral IV on left wrist 22g intact, patent, and asymptomatic. Patient has a Tyler catheter in place with scant urine output. Bilateral lower extremities elevated with pillows. Patient is clean and dry at this time. Repositioned and turned. Bilateral soft wrist restraints in place, released and reapplied after restraints care; skin, pulses and circulation intact. Patient has no s/s of pain/distress at this time. Will continue to monitor.
--- NOTE | 2020-02-26 10:05 | NUR ---
NURSE NOTES: Dr Murillo present in the unit, informed and made aware regarding patient's FiO2 as asked. Patient tolerating vent settings. No new verbal orders received at this time. Patient's VSS but still febrile. Temp 100.9 per rectal probe. Cooling blanket remains on with cooling measures. Will continue to monitor.
--- NOTE | 2020-02-26 10:10 | Pulmonolgy Critical Care Note ---
Critical Care - Asmt/Plan Problems: (1) COVID-19 virus infection (2) Acute respiratory failure (3) Sepsis (4) ESRD (end stage renal disease) on dialysis (5) Accelerated hypertension (6) Decubital ulcer (7) Pacemaker (8) Diabetes (9) Blindness of both eyes (10) Morbid obesity (11) HTN (hypertension) Respiratory: monitor respiratory rate, adjust FIO2, CXR Cardiac: continue pressors, continue to monitor HR/BP Renal: F/U I&O, keep IV fluid, check electrolytes Infectious Disease: check cultures Gastrointestinal: continue feedings/current rate Endocrine: check TSH Hematologic: monitor H/H, transfuse if hgb<8.5 Neurologic: keep patient comfortable Prophylaxis: Heparin Notes Reviewed: cardio, 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, 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 - Objective Last 24 Hour Vital Signs Date Time Temp Pulse Resp B/P (MAP) Pulse Ox O2 Delivery O2 Flow Rate FiO2 02/26/20 10:00 63 17 130/58 (82) 100 02/26/20 09:51 100.9 02/26/20 09:15 101.0 66 16 137/57 (83) 99 02/26/20 09:00 66 16 137/57 (83) 100 02/26/20 08:00 61 16 107/47 (67) 100 02/26/20 08:00 30 02/26/20 08:00 64 02/26/20 08:00 Mechanical Ventilator 02/26/20 07:00 66 15 125/62 (83) 100 02/26/20 06:30 60 16 02/26/20 06:00 99.4 62 16 128/52 (77) 99 02/26/20 05:46 72 18 30 02/26/20 05:00 61 16 108/52 (70) 100 02/26/20 04:00 30 02/26/20 04:00 100.0 66 16 121/57 (78) 100 02/26/20 04:00 Mechanical Ventilator 02/26/20 04:00 66 02/26/20 03:05 68 19 30 02/26/20 03:00 100.7 67 16 140/65 (90) 100 02/26/20 02:00 65 16 137/54 (81) 100 02/26/20 01:28 71 17 30 02/26/20 01:00 65 16 156/54 (88) 100 02/26/20 00:45 66 16 155/64 (94) 100 02/26/20 00:30 98.0 65 16 138/59 (85) 100 02/26/20 00:15 64 16 140/59 (86) 100 02/26/20 00:00 Mechanical Ventilator 02/26/20 00:00 30 02/26/20 00:00 66 02/26/20 00:00 62 16 132/62 (85) 100 02/25/20 23:45 63 16 136/50 (78) 100 02/25/20 23:30 64 16 152/53 (86) 100 02/25/20 23:15 65 16 138/56 (83) 100 02/25/20 23:08 69 17 30 02/25/20 23:00 66 16 142/57 (85) 100 02/25/20 22:00 75 17 128/78 (95) 100 02/25/20 21:05 72 16 30 02/25/20 21:00 65 18 131/48 (75) 100 02/25/20 20:00 97.9 71 16 88/43 (58) 100 02/25/20 20:00 Mechanical Ventilator 02/25/20 19:00 62 17 30 02/25/20 19:00 67 18 124/44 (70) 100 02/25/20 18:00 67 17 143/56 (85) 100 02/25/20 17:14 65 22 30 02/25/20 17:00 97.6 60 132/60 (84) 02/25/20 16:00 Mechanical Ventilator 02/25/20 16:00 30 02/25/20 16:00 65 02/25/20 16:00 63 16 132/58 (82) 100 02/25/20 15:04 66 16 30 02/25/20 15:00 61 15 131/51 (77) 100 02/25/20 14:00 61 16 133/59 (83) 100 02/25/20 13:30 60 15 128/79 (95) 99 02/25/20 13:14 60 17 30 02/25/20 13:00 97.9 60 17 118/58 (78) 100 02/25/20 12:00 Mechanical Ventilator 02/25/20 12:00 30 02/25/20 12:00 60 16 115/60 (78) 100 02/25/20 12:00 60 02/25/20 11:00 60 16 112/49 (70) 100 02/25/20 10:50 68 18 100 Mechanical Ventilator 30 02/25/20 10:49 65 18 30 Status: awake Condition: critical HEENT: atraumatic, normocephalic Lungs: clear Heart: HR/BP stable Abdomen: soft Extremities: no C/C/E Accucheck: 118 Critical Care - Subjective ROS Limited/Unobtainable: No Condition: critical EKG Rhythm: Sinus Rhythm FI02: 30 Vent Support Breath Rate: 16 Vent Support Mode: AC Vent Tidal Volume: 600 Sputum Amount: Small PEEP: 0.0 PIP: 35 Tube Feeding Amount: 35 I&O: Intake and Output 02/25/20 02/26/20 19:00 07:00 Intake Total 692 ml 840 ml Output Total 25 ml 2050 ml Balance 667 ml -1210 ml Intake Free Water 100 ml 90 ml IV Total 112 ml 330 ml Tube Feeding 420 ml 420 ml Other 60 ml Output Urine Total 25 ml 50 ml Hemodialysis UF 2000 ml ET-Tube: 7.5 ET Position: 25 Labs: Laboratory Tests Test 02/25/20 20:18 02/26/20 04:20 Random Vancomycin Level 11.6 ug/mL White Blood Count 5.0 K/UL (4.8-10.8) Red Blood Count 4.49 M/UL (4.20-5.40) Hemoglobin 10.8 G/DL (12.0-16.0) L Hematocrit 34.0 % (37.0-47.0) L Mean Corpuscular Volume 76 FL (80-99) L Mean Corpuscular Hemoglobin 23.9 PG (27.0-31.0) L Mean Corpuscular Hemoglobin Concent 31.6 G/DL (32.0-36.0) L Red Cell Distribution Width 15.5 % (11.6-14.8) H Platelet Count 177 K/UL (150-450) Mean Platelet Volume 8.1 FL (6.5-10.1) Neutrophils (%) (Auto) 59.6 % (45.0-75.0) Lymphocytes (%) (Auto) 20.4 % (20.0-45.0) Monocytes (%) (Auto) 17.8 % (1.0-10.0) H Eosinophils (%) (Auto) 1.3 % (0.0-3.0) Basophils (%) (Auto) 0.9 % (0.0-2.0) Sodium Level 138 MMOL/L (136-145) Potassium Level 4.6 MMOL/L (3.5-5.1) Chloride Level 97 MMOL/L (98-107) L Carbon Dioxide Level 32 MMOL/L (21-32) Anion Gap 9 mmol/L (5-15) Blood Urea Nitrogen 67 mg/dL (7-18) H Creatinine 7.4 MG/DL (0.55-1.30) H Estimat Glomerular Filtration Rate 6.8 mL/min (>60) Glucose Level 128 MG/DL (74-106) H Calcium Level 8.9 MG/DL (8.5-10.1) Meghana Murillo MD Feb 26, 2020 10:10
--- NOTE | 2020-02-26 11:40 | General Progress Note ---
Assessment/Plan Problem List: (1) Obesity (BMI 30-39.9) ICD Codes: E66.9 - Obesity, unspecified SNOMED: 971883903, 662829253 (2) COVID-19 virus infection ICD Codes: U07.1 - COVID-19 SNOMED: 997304939 (3) Acute respiratory failure ICD Codes: J96.00 - Acute respiratory failure, unspecified whether with hypoxia or hypercapnia SNOMED: 32375251 (4) Blindness of both eyes ICD Codes: H54.0 - Blindness SNOMED: 041400759 (5) ESRD (end stage renal disease) on dialysis ICD Codes: N18.6 - End stage renal disease; Z99.2 - Dependence on renal dialysis SNOMED: 797996973 (6) Anemia ICD Codes: D64.9 - Anemia, unspecified SNOMED: 107469146 (7) Diabetes ICD Codes: E11.9 - Type 2 diabetes mellitus without complications SNOMED: 34992416 (8) AMS (altered mental status) ICD Codes: R41.82 - Altered mental status, unspecified SNOMED: 681538815 Status: unchanged Assessment/Plan: vent abx dialysis cbc bmp am Subjective Constitutional: Reports: weakness Allergies: Coded Allergies: NO KNOWN ALLERGIES (Unverified Allergy, Unknown, 10/15/15) All Systems: reviewed and negative except above Subjective intubated sedated ng in icu Objective Last 24 Hour Vital Signs Date Time Temp Pulse Resp B/P (MAP) Pulse Ox O2 Delivery O2 Flow Rate FiO2 02/26/20 11:00 60 16 104/53 (70) 100 02/26/20 10:00 63 17 130/58 (82) 100 02/26/20 09:51 100.9 02/26/20 09:15 101.0 66 16 137/57 (83) 99 02/26/20 09:00 66 16 137/57 (83) 100 02/26/20 08:00 61 16 107/47 (67) 100 02/26/20 08:00 30 02/26/20 08:00 64 02/26/20 08:00 Mechanical Ventilator 02/26/20 07:00 66 15 125/62 (83) 100 02/26/20 06:30 60 16 02/26/20 06:00 99.4 62 16 128/52 (77) 99 02/26/20 05:46 72 18 30 02/26/20 05:00 61 16 108/52 (70) 100 02/26/20 04:00 30 02/26/20 04:00 100.0 66 16 121/57 (78) 100 02/26/20 04:00 Mechanical Ventilator 02/26/20 04:00 66 02/26/20 03:05 68 19 30 02/26/20 03:00 100.7 67 16 140/65 (90) 100 02/26/20 02:00 65 16 137/54 (81) 100 02/26/20 01:28 71 17 30 02/26/20 01:00 65 16 156/54 (88) 100 02/26/20 00:45 66 16 155/64 (94) 100 02/26/20 00:30 98.0 65 16 138/59 (85) 100 02/26/20 00:15 64 16 140/59 (86) 100 02/26/20 00:00 Mechanical Ventilator 02/26/20 00:00 30 02/26/20 00:00 66 02/26/20 00:00 62 16 132/62 (85) 100 02/25/20 23:45 63 16 136/50 (78) 100 02/25/20 23:30 64 16 152/53 (86) 100 02/25/20 23:15 65 16 138/56 (83) 100 02/25/20 23:08 69 17 30 02/25/20 23:00 66 16 142/57 (85) 100 02/25/20 22:00 75 17 128/78 (95) 100 02/25/20 21:05 72 16 30 02/25/20 21:00 65 18 131/48 (75) 100 02/25/20 20:00 97.9 71 16 88/43 (58) 100 02/25/20 20:00 Mechanical Ventilator 02/25/20 19:00 62 17 30 02/25/20 19:00 67 18 124/44 (70) 100 02/25/20 18:00 67 17 143/56 (85) 100 02/25/20 17:14 65 22 30 02/25/20 17:00 97.6 60 132/60 (84) 02/25/20 16:00 Mechanical Ventilator 02/25/20 16:00 30 02/25/20 16:00 65 02/25/20 16:00 63 16 132/58 (82) 100 02/25/20 15:04 66 16 30 02/25/20 15:00 61 15 131/51 (77) 100 02/25/20 14:00 61 16 133/59 (83) 100 02/25/20 13:30 60 15 128/79 (95) 99 02/25/20 13:14 60 17 30 02/25/20 13:00 97.9 60 17 118/58 (78) 100 02/25/20 12:00 Mechanical Ventilator 02/25/20 12:00 30 02/25/20 12:00 60 16 115/60 (78) 100 02/25/20 12:00 60 Intake and Output 02/25/20 02/26/20 19:00 07:00 Intake Total 692 ml 840 ml Output Total 25 ml 2050 ml Balance 667 ml -1210 ml Intake Free Water 100 ml 90 ml IV Total 112 ml 330 ml Tube Feeding 420 ml 420 ml Other 60 ml Output Urine Total 25 ml 50 ml Hemodialysis UF 2000 ml Laboratory Tests 02/25/20 20:18: Random Vancomycin Level 11.6 02/26/20 04:20: White Blood Count 5.0, Red Blood Count 4.49, Hemoglobin 10.8L, Hematocrit 34.0L , Mean Corpuscular Volume 76L, Mean Corpuscular Hemoglobin 23.9L, Mean Corpuscular Hemoglobin Concent 31.6L, Red Cell Distribution Width 15.5H, Platelet Count 177, Mean Platelet Volume 8.1, Neutrophils (%) (Auto) 59.6, Lymphocytes (%) (Auto) 20.4, Monocytes (%) (Auto) 17.8H, Eosinophils (%) (Auto) 1.3, Basophils (%) (Auto) 0.9, Sodium Level 138, Potassium Level 4.6, Chloride Level 97L, Carbon Dioxide Level 32, Anion Gap 9, Blood Urea Nitrogen 67H, Creatinine 7.4H, Estimat Glomerular Filtration Rate 6.8, Glucose Level 128H, Calcium Level 8.9 Height (Feet): 5 Height (Inches): 7.00 Weight (Pounds): 245 General Appearance: lethargic EENT: normal ENT inspection Neck: normal alignment Cardiovascular: normal peripheral pulses, normal rate, regular rhythm Respiratory/Chest: no accessory muscle use Extremities: normal inspection Skin: normal pigmentation Roderick Henning DO Feb 26, 2020 11:39
[2020-02-26] MEDS: Thiamine HCl 100 MG in D5W 55 ML IVPB SCH (12:11)
--- NOTE | 2020-02-26 12:30 | NUR ---
NURSE NOTES: Partial bed bath given, BM noted soft, brown, moderate amount. Linens were changed. Reinforced rectal probe. Patient's rectal temp 98.5 at this time. Cooling blanket turned off for now. Oral care given, suctioned patient via ET tube with moderate amount of thick, white secretions. TF held during bath, resumed after care. HOB placed elevated at 30 degrees. Repositioned patient, placed pillows for support. Restraints released; skin, pulses and circulation checked. Patient still noted trying to reach for ET tube, restraints reapplied. Patient left clean and dry at this time. Safety precautions in place; bed locked, alarmed, and in lowest position. Will continue to monitor patient.
--- NOTE | 2020-02-26 13:02 | Nephrology Progress Note ---
Assessment/Plan Problem List: (1) Acute respiratory failure (2) ESRD (end stage renal disease) on dialysis (3) UTI (urinary tract infection) (4) Patient is Rastafarian (5) Pacemaker (6) Diabetes (7) Obesity (BMI 30-39.9) Assessment ARDS (adult respiratory distress syndrome) Fever Sepsis UTI (urinary tract infection) Respiratory failure, intubated on ventilator Thrombocytopenia Lymphopenia End stage renal disease on dialysis. Has a right upper arm dialysis fistula as Acces . Getting dialysis Sunday. morbid obesity Anemia / Jehova's witness CAD previous stent HTN- hypertensive urgency upon arrival to [facility]. s/p AVG DM 2 bilateral eye blindness h/o CHF Pacemaker Plan Patient positive for Covid 19 Per ID and pulmonary, ventilator adjustment Dialyzed February 24 EPO, thiamin and b6 Phos binders NGT feeding per consultants Remains full code at this time Subjective ROS Limited/Unobtainable: Yes Objective Objective Last 24 Hour Vital Signs Date Time Temp Pulse Resp B/P (MAP) Pulse Ox O2 Delivery O2 Flow Rate FiO2 02/26/20 12:00 98.5 61 16 122/59 (80) 100 02/26/20 12:00 61 02/26/20 11:00 60 16 104/53 (70) 100 02/26/20 10:00 63 17 130/58 (82) 100 02/26/20 09:51 100.9 02/26/20 09:15 101.0 66 16 137/57 (83) 99 02/26/20 09:00 66 16 137/57 (83) 100 02/26/20 08:00 61 16 107/47 (67) 100 02/26/20 08:00 30 02/26/20 08:00 64 02/26/20 08:00 Mechanical Ventilator 02/26/20 07:00 66 15 125/62 (83) 100 02/26/20 06:30 60 16 02/26/20 06:00 99.4 62 16 128/52 (77) 99 02/26/20 05:46 72 18 30 02/26/20 05:00 61 16 108/52 (70) 100 02/26/20 04:00 30 02/26/20 04:00 100.0 66 16 121/57 (78) 100 02/26/20 04:00 Mechanical Ventilator 02/26/20 04:00 66 02/26/20 03:05 68 19 30 02/26/20 03:00 100.7 67 16 140/65 (90) 100 02/26/20 02:00 65 16 137/54 (81) 100 02/26/20 01:28 71 17 30 02/26/20 01:00 65 16 156/54 (88) 100 02/26/20 00:45 66 16 155/64 (94) 100 02/26/20 00:30 98.0 65 16 138/59 (85) 100 02/26/20 00:15 64 16 140/59 (86) 100 02/26/20 00:00 Mechanical Ventilator 02/26/20 00:00 30 02/26/20 00:00 66 02/26/20 00:00 62 16 132/62 (85) 100 02/25/20 23:45 63 16 136/50 (78) 100 02/25/20 23:30 64 16 152/53 (86) 100 02/25/20 23:15 65 16 138/56 (83) 100 02/25/20 23:08 69 17 30 02/25/20 23:00 66 16 142/57 (85) 100 02/25/20 22:00 75 17 128/78 (95) 100 02/25/20 21:05 72 16 30 02/25/20 21:00 65 18 131/48 (75) 100 02/25/20 20:00 97.9 71 16 88/43 (58) 100 02/25/20 20:00 Mechanical Ventilator 02/25/20 19:00 62 17 30 02/25/20 19:00 67 18 124/44 (70) 100 02/25/20 18:00 67 17 143/56 (85) 100 02/25/20 17:14 65 22 30 02/25/20 17:00 97.6 60 132/60 (84) 02/25/20 16:00 Mechanical Ventilator 02/25/20 16:00 30 02/25/20 16:00 65 02/25/20 16:00 63 16 132/58 (82) 100 02/25/20 15:04 66 16 30 02/25/20 15:00 61 15 131/51 (77) 100 02/25/20 14:00 61 16 133/59 (83) 100 02/25/20 13:30 60 15 128/79 (95) 99 02/25/20 13:14 60 17 30 Intake and Output 02/25/20 02/26/20 19:00 07:00 Intake Total 692 ml 840 ml Output Total 25 ml 2050 ml Balance 667 ml -1210 ml Intake Free Water 100 ml 90 ml IV Total 112 ml 330 ml Tube Feeding 420 ml 420 ml Other 60 ml Output Urine Total 25 ml 50 ml Hemodialysis UF 2000 ml Laboratory Tests 02/25/20 20:18: Random Vancomycin Level 11.6 02/26/20 04:20: White Blood Count 5.0, Red Blood Count 4.49, Hemoglobin 10.8L, Hematocrit 34.0L , Mean Corpuscular Volume 76L, Mean Corpuscular Hemoglobin 23.9L, Mean Corpuscular Hemoglobin Concent 31.6L, Red Cell Distribution Width 15.5H, Platelet Count 177, Mean Platelet Volume 8.1, Neutrophils (%) (Auto) 59.6, Lymphocytes (%) (Auto) 20.4, Monocytes (%) (Auto) 17.8H, Eosinophils (%) (Auto) 1.3, Basophils (%) (Auto) 0.9, Sodium Level 138, Potassium Level 4.6, Chloride Level 97L, Carbon Dioxide Level 32, Anion Gap 9, Blood Urea Nitrogen 67H, Creatinine 7.4H, Estimat Glomerular Filtration Rate 6.8, Glucose Level 128H, Calcium Level 8.9 Height (Feet): 5 Height (Inches): 7.00 Weight (Pounds): 245 General Appearance: no apparent distress EENT: other - Intubated and vented Cardiovascular: normal rate Respiratory/Chest: decreased breath sounds Abdomen: distended Bryan Hunter MD Feb 26, 2020 13:02
[2020-02-26] MEDS ORDERED: NS 275ml ONE ×2 (14:34→14:35)
--- NOTE | 2020-02-26 14:47 | NUR ---
NURSE NOTES: No s/s of pain/discomfort/distress at this time. VSS. Patient is tolerating vent settings and TF. Restrains remains on. Will continue to monitor.
--- NOTE | 2020-02-26 15:05 | Infectious Diseases Prog Note ---
Assessment/Plan Assessment/Plan ASSESSMENT: The patient is a 64-year-old female with COVID-19. SARS-CoV PCR positive. Pneumonia Fever No leukocytosis -02/20 CXR: Mild pulmonary vascular congestion with subtle bilateral haziness , not significantly changed.Possible tiny pleural effusions. Cardiomegaly. -Bcx ngtd -sp cx normal gui Less likely UTI u/a wbc tnct, nit +, leuk +3; ucx cindy(colonizer) Hx of positive blood culture CONS ,persistent 02/04 BCx: CoNS 01/30 Bc: (1/2)CoNS and Citrobacter 01/27 , 02/01 Bc: CoNS - (outside facility, # of the +ve cultures are not clear) A 2D echo from outside facility did not show any evidence of vegetation as per Carido pt is high risk for CLAY: ( last admission ) Diabetes. CHF. ESRD. Hypertension. Obesity. PLAN: Plaquenil+azithromycin #01/28. QTc 450 Ertapenem #06/01 continue the patient on vancomycin, day # ? ( will Rx for probable SBE) 02/24 DC amikacin #6 Monitor CBC. Monitor BMP. Monitor cultures (blood, Sp ) Airborne. Contact plus Isolation JAE RN Subjective Allergies: Coded Allergies: NO KNOWN ALLERGIES (Unverified Allergy, Unknown, 10/15/15) Subjective Tmax 100.9 FiO2 30% No leukocytosis Objective Vital Signs Last 24 Hour Vital Signs Date Time Temp Pulse Resp B/P (MAP) Pulse Ox O2 Delivery O2 Flow Rate FiO2 02/26/20 14:00 60 16 121/53 (75) 99 02/26/20 13:00 62 15 119/51 (73) 100 02/26/20 12:00 98.5 61 16 122/59 (80) 100 02/26/20 12:00 61 02/26/20 12:00 30 02/26/20 12:00 Mechanical Ventilator 02/26/20 11:00 60 16 104/53 (70) 100 02/26/20 10:00 63 17 130/58 (82) 100 02/26/20 09:51 100.9 02/26/20 09:15 101.0 66 16 137/57 (83) 99 02/26/20 09:00 66 16 137/57 (83) 100 02/26/20 08:00 61 16 107/47 (67) 100 02/26/20 08:00 30 02/26/20 08:00 64 02/26/20 08:00 Mechanical Ventilator 02/26/20 07:00 66 15 125/62 (83) 100 02/26/20 06:30 60 16 02/26/20 06:00 99.4 62 16 128/52 (77) 99 02/26/20 05:46 72 18 30 02/26/20 05:00 61 16 108/52 (70) 100 02/26/20 04:00 30 02/26/20 04:00 100.0 66 16 121/57 (78) 100 02/26/20 04:00 Mechanical Ventilator 02/26/20 04:00 66 02/26/20 03:05 68 19 30 02/26/20 03:00 100.7 67 16 140/65 (90) 100 02/26/20 02:00 65 16 137/54 (81) 100 02/26/20 01:28 71 17 30 02/26/20 01:00 65 16 156/54 (88) 100 02/26/20 00:45 66 16 155/64 (94) 100 02/26/20 00:30 98.0 65 16 138/59 (85) 100 02/26/20 00:15 64 16 140/59 (86) 100 02/26/20 00:00 Mechanical Ventilator 02/26/20 00:00 30 02/26/20 00:00 66 02/26/20 00:00 62 16 132/62 (85) 100 02/25/20 23:45 63 16 136/50 (78) 100 02/25/20 23:30 64 16 152/53 (86) 100 02/25/20 23:15 65 16 138/56 (83) 100 02/25/20 23:08 69 17 30 02/25/20 23:00 66 16 142/57 (85) 100 02/25/20 22:00 75 17 128/78 (95) 100 02/25/20 21:05 72 16 30 02/25/20 21:00 65 18 131/48 (75) 100 02/25/20 20:00 97.9 71 16 88/43 (58) 100 02/25/20 20:00 Mechanical Ventilator 02/25/20 19:00 62 17 30 02/25/20 19:00 67 18 124/44 (70) 100 02/25/20 18:00 67 17 143/56 (85) 100 02/25/20 17:14 65 22 30 02/25/20 17:00 97.6 60 132/60 (84) 02/25/20 16:00 Mechanical Ventilator 02/25/20 16:00 30 02/25/20 16:00 65 02/25/20 16:00 63 16 132/58 (82) 100 Height (Feet): 5 Height (Inches): 7.00 Weight (Pounds): 245 Objective General Appearance: no acute distress HEENT: normocephalic, atraumatic Respiratory/Chest: no respiratory distress, no accessory muscle use Abdomen: non distended Neuro: awake. moving extremities Laboratory Tests Test 02/25/20 20:18 02/26/20 04:20 Random Vancomycin Level 11.6 ug/mL White Blood Count 5.0 K/UL (4.8-10.8) Red Blood Count 4.49 M/UL (4.20-5.40) Hemoglobin 10.8 G/DL (12.0-16.0) L Hematocrit 34.0 % (37.0-47.0) L Mean Corpuscular Volume 76 FL (80-99) L Mean Corpuscular Hemoglobin 23.9 PG (27.0-31.0) L Mean Corpuscular Hemoglobin Concent 31.6 G/DL (32.0-36.0) L Red Cell Distribution Width 15.5 % (11.6-14.8) H Platelet Count 177 K/UL (150-450) Mean Platelet Volume 8.1 FL (6.5-10.1) Neutrophils (%) (Auto) 59.6 % (45.0-75.0) Lymphocytes (%) (Auto) 20.4 % (20.0-45.0) Monocytes (%) (Auto) 17.8 % (1.0-10.0) H Eosinophils (%) (Auto) 1.3 % (0.0-3.0) Basophils (%) (Auto) 0.9 % (0.0-2.0) Sodium Level 138 MMOL/L (136-145) Potassium Level 4.6 MMOL/L (3.5-5.1) Chloride Level 97 MMOL/L (98-107) L Carbon Dioxide Level 32 MMOL/L (21-32) Anion Gap 9 mmol/L (5-15) Blood Urea Nitrogen 67 mg/dL (7-18) H Creatinine 7.4 MG/DL (0.55-1.30) H Estimat Glomerular Filtration Rate 6.8 mL/min (>60) Glucose Level 128 MG/DL (74-106) H Calcium Level 8.9 MG/DL (8.5-10.1) Current Medications Medications (Trade) Dose Ordered Sig/Josi Route PRN Reason Start Time Stop Time Status Last Admin Dose Admin Acetaminophen (Tylenol) 650 mg Q4H PRN GT fever 02/25/20 06:30 03/26/20 06:29 02/26/20 09:21 Albuterol/ Ipratropium (Combivent Respimat) 1 puffs Q4H PRN INH Shortness of Breath 02/25/20 06:30 03/26/20 06:29 Atorvastatin Calcium (Lipitor) 10 mg BEDTIME NG 02/25/20 21:00 05/25/20 20:59 02/25/20 21:15 Azithromycin (Zithromax) 250 mg DAILY NG 02/25/20 09:00 03/03/20 08:59 02/26/20 08:48 Epoetin Jose De Jesus (Epoetin Jose De Jesus(ESRD on dialysis)) 3,000 unit SUN-SUN-SUN SUBQ 02/25/20 21:00 05/25/20 20:59 02/25/20 21:16 Ertapenem 0.5 gm/ Sodium Chloride 55 ml @ 110 mls/hr Q24H IV 02/25/20 20:00 03/01/20 19:59 02/25/20 20:26 Heparin Sodium (Porcine) (Heparin 5000 units/ml) 5,000 units EVERY 12 HOURS SUBQ 02/25/20 09:00 04/10/20 08:59 02/26/20 08:50 Hydralazine HCl (Apresoline) 10 mg Q4H PRN IV Blood pressure over 160 systol 02/25/20 06:30 05/25/20 06:29 Hydromorphone HCl (Dilaudid) 0.5 mg Q4H PRN IVP For Pain 02/25/20 06:30 03/03/20 06:29 Hydroxychloroquine Sulfate (Plaquenil) 200 mg BID NG 02/25/20 18:00 02/29/20 09:01 02/26/20 08:48 Insulin Aspart (NovoLOG) BEFORE MEALS AND HS SUBQ 02/20/20 12:30 05/20/20 12:29 02/26/20 12:13 Labetalol HCl (Normodyne) 20 mg Q1H PRN IV sbp more than 180mmHg 02/25/20 06:30 03/26/20 06:29 Lorazepam (Ativan 2mg/ml 1ml) 2 mg Q2H PRN IV For Anxiety 02/25/20 06:30 03/03/20 06:29 02/25/20 09:13 Ondansetron HCl (Zofran) 4 mg Q6H PRN IVP Nausea & Vomiting 02/25/20 06:30 03/26/20 06:29 Pantoprazole (Protonix) 40 mg Q12HR IVP 02/25/20 09:00 03/26/20 08:59 02/26/20 08:48 Pyridoxine HCl (Vitamin B6) 50 mg DAILY NG 02/25/20 09:00 03/26/20 08:59 02/26/20 08:48 Sevelamer Carbonate (Renvela) 800 mg Q6HR NG 02/25/20 12:00 05/25/20 11:59 02/26/20 12:11 Thiamine HCl 100 mg/Dextrose 56 ml @ 112 mls/hr Q24H IVPB 02/25/20 12:00 03/26/20 11:59 02/26/20 12:11 Vancomycin HCl (Vanco rx to dose) 1 ea DAILY PRN MISC . 02/25/20 06:30 03/26/20 06:29 Clarice Nicolas MD Feb 26, 2020 15:05
--- NOTE | 2020-02-26 16:00 | NUR ---
NURSE NOTES: Patient is tolerating vent settings, RT at bedside for suctioning and oral care. No s/s of pain/discomfort/distress at this time. VSS. Restrains remains on. Safety precautions in place; bed locked and alarm on, side rails up x3, HOB elevated. Will continue to monitor.
--- NOTE | 2020-02-26 17:08 | Cardiology Progress Note ---
Assessment/Plan Assessment/Plan 1. Respiratory failure. 2. History of obesity hypoventilation syndrome. 3. History of pulmonary hypertension previously. 4. Urinary tract infection. 5. covid 19 infection confimred 6. Questionable pneumonia. 7. History of bacteremia with Staph epi recently on 02/05/2020. i did not examine pt personally i did not feel the risk to me personally are worth the limited information that could be obtained while pt is not communicative and on a vent with confirmed covid 19 tele reviewed sinus atraial paced hemodynamically fine having a fever now d/w rn no indication for hypoxemia to be concerning of worsening respiratory issues or developing chf as 30% of covid 19 pt can develop sats are 99- 100% on 30% fio2 still no weaning perfomred today on abx holding off in ordering echo at this time due to active covid 19 infecion watch bp off bp meds wean when safe and feasible i saw her from out side the door looks quite comfortable all labs reviewed looks ok wbc normal despite fever Subjective ROS Limited/Unobtainable: Yes Objective Last 24 Hour Vital Signs Date Time Temp Pulse Resp B/P (MAP) Pulse Ox O2 Delivery O2 Flow Rate FiO2 02/26/20 16:00 Mechanical Ventilator 02/26/20 16:00 61 16 133/41 (71) 99 02/26/20 16:00 30 02/26/20 16:00 65 02/26/20 15:02 66 17 30 02/26/20 15:00 66 16 145/59 (87) 100 02/26/20 14:00 60 16 121/53 (75) 99 02/26/20 13:00 62 15 119/51 (73) 100 02/26/20 12:00 98.5 61 16 122/59 (80) 100 02/26/20 12:00 61 02/26/20 12:00 30 02/26/20 12:00 Mechanical Ventilator 02/26/20 11:00 60 16 104/53 (70) 100 02/26/20 10:00 63 17 130/58 (82) 100 02/26/20 09:51 100.9 02/26/20 09:15 101.0 66 16 137/57 (83) 99 02/26/20 09:00 66 16 137/57 (83) 100 02/26/20 08:00 61 16 107/47 (67) 100 02/26/20 08:00 30 02/26/20 08:00 64 02/26/20 08:00 Mechanical Ventilator 02/26/20 07:00 66 15 125/62 (83) 100 02/26/20 06:30 60 16 02/26/20 06:00 99.4 62 16 128/52 (77) 99 02/26/20 05:46 72 18 30 02/26/20 05:00 61 16 108/52 (70) 100 02/26/20 04:00 30 02/26/20 04:00 100.0 66 16 121/57 (78) 100 02/26/20 04:00 Mechanical Ventilator 02/26/20 04:00 66 02/26/20 03:05 68 19 30 02/26/20 03:00 100.7 67 16 140/65 (90) 100 02/26/20 02:00 65 16 137/54 (81) 100 02/26/20 01:28 71 17 30 02/26/20 01:00 65 16 156/54 (88) 100 02/26/20 00:45 66 16 155/64 (94) 100 02/26/20 00:30 98.0 65 16 138/59 (85) 100 02/26/20 00:15 64 16 140/59 (86) 100 02/26/20 00:00 Mechanical Ventilator 02/26/20 00:00 30 02/26/20 00:00 66 02/26/20 00:00 62 16 132/62 (85) 100 02/25/20 23:45 63 16 136/50 (78) 100 02/25/20 23:30 64 16 152/53 (86) 100 02/25/20 23:15 65 16 138/56 (83) 100 02/25/20 23:08 69 17 30 02/25/20 23:00 66 16 142/57 (85) 100 02/25/20 22:00 75 17 128/78 (95) 100 02/25/20 21:05 72 16 30 02/25/20 21:00 65 18 131/48 (75) 100 02/25/20 20:00 97.9 71 16 88/43 (58) 100 02/25/20 20:00 Mechanical Ventilator 02/25/20 19:00 62 17 30 02/25/20 19:00 67 18 124/44 (70) 100 02/25/20 18:00 67 17 143/56 (85) 100 02/25/20 17:14 65 22 30 General Appearance: no apparent distress, on vent, patient on isolation Intake and Output 02/25/20 02/26/20 19:00 07:00 Intake Total 692 ml 840 ml Output Total 25 ml 4050 ml Balance 667 ml -3210 ml Intake Free Water 100 ml 90 ml IV Total 112 ml 330 ml Tube Feeding 420 ml 420 ml Other 60 ml Output Urine Total 25 ml 50 ml Hemodialysis UF 4000 ml Laboratory Tests Test 02/25/20 20:18 02/26/20 04:20 Random Vancomycin Level 11.6 ug/mL White Blood Count 5.0 K/UL (4.8-10.8) Red Blood Count 4.49 M/UL (4.20-5.40) Hemoglobin 10.8 G/DL (12.0-16.0) L Hematocrit 34.0 % (37.0-47.0) L Mean Corpuscular Volume 76 FL (80-99) L Mean Corpuscular Hemoglobin 23.9 PG (27.0-31.0) L Mean Corpuscular Hemoglobin Concent 31.6 G/DL (32.0-36.0) L Red Cell Distribution Width 15.5 % (11.6-14.8) H Platelet Count 177 K/UL (150-450) Mean Platelet Volume 8.1 FL (6.5-10.1) Neutrophils (%) (Auto) 59.6 % (45.0-75.0) Lymphocytes (%) (Auto) 20.4 % (20.0-45.0) Monocytes (%) (Auto) 17.8 % (1.0-10.0) H Eosinophils (%) (Auto) 1.3 % (0.0-3.0) Basophils (%) (Auto) 0.9 % (0.0-2.0) Sodium Level 138 MMOL/L (136-145) Potassium Level 4.6 MMOL/L (3.5-5.1) Chloride Level 97 MMOL/L (98-107) L Carbon Dioxide Level 32 MMOL/L (21-32) Anion Gap 9 mmol/L (5-15) Blood Urea Nitrogen 67 mg/dL (7-18) H Creatinine 7.4 MG/DL (0.55-1.30) H Estimat Glomerular Filtration Rate 6.8 mL/min (>60) Glucose Level 128 MG/DL (74-106) H Calcium Level 8.9 MG/DL (8.5-10.1) Wilfredo Reyna MD Feb 26, 2020 17:08
--- NOTE | 2020-02-26 18:00 | NUR ---
NURSE NOTES: Complete bed bath given to patient. No BM noted. Repositioned and turned. Patient's temperature at 1715PM 100.9 axillary and 101.2 rectally, Tylenol given, cooling blanket turned on, and cooling measures applied. Suctioned patient via ET tube with thick, white, moderate sputum. NGT intact, patent, TF resumed after bed bath. Nepro infusing at 35ml/hr. Scheduled medications given. Restraints care provided, released and reapplied; patient noted to be reaching for ET tube/NGT. Tyler catheter draining to gravity, with pinkish, scant urine output. Optifoam applied on bilateral heels, elevated and supported with pillows. Will continue to monitor patient.
--- NOTE | 2020-02-26 19:07 | NUR ---
HAND-OFF: Report given to NATHALIA Rivera. Endorsed plan of care. Patient in stable condition.
--- NOTE | 2020-02-26 19:30 | NUR ---
NURSE NOTES: Received pt with eyes close , orally intubated on ac mode. 02 sat 100%. A paced on the monitor, bp stable. Temp 98.6f rectally, Tolerating Ngt fdg Nepro at 35ml/hr. HOB kept elevated. On aspiration precaution.Bilateral soft wrist restraints on for safety to avoid self extubation.AV shunt MANISHA with good bruit. Pt is oliguric, sotelo to gravity with very minimal amt of pinkish urine. Pt has 2-3+ edema and with DTI left heel. On P200 mattress. Turned q 2hrs prn with good skin care done. Will continue to monitor.
[2020-02-26] MEDS: Ertapenem 500mg ivpb (q24h) IV SCH ×2 (20:27)
--- NOTE | 2020-02-26 21:00 | NUR ---
NURSE NOTES: Pt had x1 lg brownish stool. cleaned up pt.
--- NOTE | 2020-02-26 22:00 | NUR ---
NURSE NOTES: Discontinued restraints. pt more compliant at this time.
--- NOTE | 2020-02-26 23:00 | NUR ---
NURSE NOTES: Suctioned tk beige to blood tinged secretion moderate in amt. 02 sat 100%.
[2020-02-27] VITALS (25 sets, daily range): BP systolic 88–148; BP diastolic 34–68
--- NOTE | 2020-02-27 01:00 | NUR ---
NURSE NOTES: Turned and repositoned for comfort. Suctioned tk blood tinged secretions moderate in mt. 02 sat 100%
--- NOTE | 2020-02-27 03:00 | NUR ---
NURSE NOTES: Complete bed bath with bed changed done.
--- NOTE | 2020-02-27 05:00 | NUR ---
NURSE NOTES: Am labs drwn and sent to lab.Pt is a hardstick.
[2020-02-27 05:25] LABS: BASOPHILS % (AUTO) 0.8 % (0.0-2.0); EOSINOPHILS % (AUTO) 0.8 % (0.0-3.0); HEMATOCRIT 33.4 % (37.0-47.0); HEMOGLOBIN 10.6 G/DL (12.0-16.0); LYMPHOCYTES % (AUTO) 29.9 % (20.0-45.0); MEAN CORPUSCULAR VOLUME 76 FL (80-99); MONOCYTES % (AUTO) 17.1 % (1.0-10.0); NEUTROPHILS % (AUTO) 51.5 % (45.0-75.0); PLATELET COUNT 225 K/UL (150-450); RED BLOOD COUNT 4.42 M/UL (4.20-5.40); RED CELL DISTRIBUTION WIDTH 15.5 % (11.6-14.8); WHITE BLOOD COUNT 6.4 K/UL (4.8-10.8)
[2020-02-27] MEDS: Renvela 800mg Pkt NG SCH ×5 (05:43→23:07)
[2020-02-27] MEDS: NovoLOG Insulin Flexpen SUBQ SCH ×4 (06:07→21:00)
[2020-02-27 06:12] LABS: ALANINE AMINOTRANSFERASE 26 U/L (12-78); ALBUMIN 3.1 G/DL (3.4-5.0); ALBUMIN/GLOBULIN RATIO 0.7 (1.0-2.7); ALKALINE PHOSPHATASE 344 U/L (46-116); ANION GAP 11 mmol/L (5-15); ASPARTATE AMINO TRANSFERASE 69 U/L (15-37); BILIRUBIN,TOTAL 0.5 MG/DL (0.2-1.0); BLOOD UREA NITROGEN 89 mg/dL (7-18); CALCIUM 8.9 MG/DL (8.5-10.1); CARBON DIOXIDE 32 MMOL/L (21-32); CHLORIDE 94 MMOL/L (98-107); CREATININE 8.9 MG/DL (0.55-1.30); SODIUM 137 MMOL/L (136-145)
--- NOTE | 2020-02-27 07:20 | NUR ---
HAND-OFF: Report given to Darleen SLOAN for continuity of care..
--- NOTE | 2020-02-27 07:21 | NUR ---
NURSE NOTES: Received report from NATHALIA Hunter. Pt observed lying in bed with eyes close. Orally intubated; ETT 7.5, 25cm @ the lipline. AC 16, TV 600, FiO2 30%, 0 PEEP. 02 sat 100%. 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 Tolerating feeding Nepro at 35ml/hr via right nares NGT. HOB kept elevated. On aspiration precautions maintained. Received and maintained on Bilateral soft wrist restraints for safety to avoid self extubation. AV shunt MANISHA with good bruit. Pt is oliguric, Tyler catheter draining to gravity/urometer with minimal amt of pinkish urine. Pt has 2-3+ edema and with DTI left heel. On P200 mattress. Bed locked and in lowest position. Will continue to monitor.
[2020-02-27] MEDS: Pantoprazole Inj IVP SCH ×2 (08:31→20:24)
[2020-02-27] MEDS: Pyridoxine 50mg tab NG SCH (08:31)
[2020-02-27] MEDS: Heparin 5000 units/ml inj SUBQ SCH ×3 (08:32→21:00)
[2020-02-27] MEDS: Azithromycin 250mg tab NG SCH (08:32)
--- NOTE | 2020-02-27 08:42 | NUR ---
RD ASSESSMENT & RECOMMENDATIONS SEE CARE ACTIVITY FOR COMPLETE ASSESSMENT DAILY ESTIMATED NEEDS: Needs based on obesity, critical care, HD 11-14kg actual body wt (114kg) kcals/kg [id number] total kcals 1.5-2.0kg/IBW (66kg) g protein/kg 99-132 g total protein per MD, pt on HD NUTRITION DIAGNOSIS: * Swallowing difficulty R/T respiratory status as evidenced by pt orally intubated, on NGT feeding. * Altered nutrition related lab values R/T ESRD as evidenced by elev creat (7.6), elev BNP (20874), elev phos (6.0). 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 * Add Prosource 1pkt TID to meet protein needs * HOB over 30 degrees/ water flush per MD. ADDITIONAL RECOMMENDATIONS: 1) Calibrated bedscale wt for accurate CBW- daily wts for ESRD dx 2) Add Nephrovite x 1 3) Monitor BGs closely, for hypoglycemia : h/o frequent hypoglycemia during prev admissions 4) Consider phos binders for consistently elevated phos level -> now added (02/24) .
--- NOTE | 2020-02-27 08:46 | General Progress Note ---
Assessment/Plan Problem List: (1) Obesity (BMI 30-39.9) ICD Codes: E66.9 - Obesity, unspecified SNOMED: 689014150, 416095870 (2) COVID-19 virus infection ICD Codes: U07.1 - COVID-19 SNOMED: 758243164 (3) Acute respiratory failure ICD Codes: J96.00 - Acute respiratory failure, unspecified whether with hypoxia or hypercapnia SNOMED: 97259874 (4) Blindness of both eyes ICD Codes: H54.0 - Blindness SNOMED: 038962261 (5) ESRD (end stage renal disease) on dialysis ICD Codes: N18.6 - End stage renal disease; Z99.2 - Dependence on renal dialysis SNOMED: 661769293 (6) Anemia ICD Codes: D64.9 - Anemia, unspecified SNOMED: 897877108 (7) Diabetes ICD Codes: E11.9 - Type 2 diabetes mellitus without complications SNOMED: 91705191 (8) AMS (altered mental status) ICD Codes: R41.82 - Altered mental status, unspecified SNOMED: 443111763 Status: unchanged Assessment/Plan: vent abx dialysis cbc bmp am Subjective Constitutional: Reports: weakness Allergies: Coded Allergies: NO KNOWN ALLERGIES (Unverified Allergy, Unknown, 10/15/15) All Systems: reviewed and negative except above Subjective intubated sedated ng in icu Objective Last 24 Hour Vital Signs Date Time Temp Pulse Resp B/P (MAP) Pulse Ox O2 Delivery O2 Flow Rate FiO2 02/27/20 08:00 Mechanical Ventilator 02/27/20 08:00 30 02/27/20 07:00 60 16 130/53 (78) 100 02/27/20 06:30 60 16 02/27/20 06:00 61 16 115/47 (69) 100 02/27/20 05:23 61 16 30 02/27/20 05:00 60 17 117/45 (69) 100 02/27/20 04:00 30 02/27/20 04:00 Mechanical Ventilator 02/27/20 04:00 69 02/27/20 04:00 99.8 64 16 132/68 (89) 99 02/27/20 03:00 61 15 118/55 (76) 100 02/27/20 02:00 60 16 115/51 (72) 100 02/27/20 01:05 67 17 30 02/27/20 01:00 62 15 119/38 (65) 100 02/27/20 00:00 Mechanical Ventilator 02/27/20 00:00 99.0 66 16 148/42 (77) 100 02/26/20 23:24 62 16 30 02/26/20 23:00 60 15 99/36 (57) 100 02/26/20 22:00 63 18 113/31 (58) 99 02/26/20 21:05 63 17 30 02/26/20 21:00 65 15 144/58 (86) 100 02/26/20 20:00 70 02/26/20 20:00 Mechanical Ventilator 02/26/20 20:00 30 02/26/20 20:00 98.7 61 14 132/51 (78) 100 02/26/20 19:30 68 16 30 02/26/20 19:00 100.0 60 16 116/51 (72) 100 02/26/20 19:00 100.0 60 16 100 02/26/20 18:00 62 16 94/30 (51) 100 02/26/20 17:46 100.8 02/26/20 17:18 66 19 30 02/26/20 17:15 101.2 63 16 134/56 (82) 99 02/26/20 17:00 67 16 125/76 (92) 100 02/26/20 16:00 Mechanical Ventilator 02/26/20 16:00 61 16 133/41 (71) 99 02/26/20 16:00 30 02/26/20 16:00 65 02/26/20 15:02 66 17 30 02/26/20 15:00 66 16 145/59 (87) 100 02/26/20 14:00 60 16 121/53 (75) 99 02/26/20 13:19 63 17 30 02/26/20 13:00 62 15 119/51 (73) 100 02/26/20 12:00 98.5 61 16 122/59 (80) 100 02/26/20 12:00 61 02/26/20 12:00 30 02/26/20 12:00 Mechanical Ventilator 02/26/20 11:00 60 16 104/53 (70) 100 02/26/20 10:00 63 17 130/58 (82) 100 02/26/20 09:15 101.0 66 16 137/57 (83) 99 02/26/20 09:00 66 16 137/57 (83) 100 02/26/20 08:59 66 19 30 Intake and Output 02/26/20 02/27/20 19:00 07:00 Intake Total 676 ml 475 ml Output Total 25 ml 60 ml Balance 651 ml 415 ml Intake Free Water 90 ml IV Total 56 ml Tube Feeding 420 ml 385 ml Other 200 ml Output Urine Total 25 ml 60 ml # Bowel Movements 1 2 Laboratory Tests 02/27/20 04:30: White Blood Count 6.4, Red Blood Count 4.42, Hemoglobin 10.6L, Hematocrit 33.4L , Mean Corpuscular Volume 76L, Mean Corpuscular Hemoglobin 23.9L, Mean Corpuscular Hemoglobin Concent 31.6L, Red Cell Distribution Width 15.5H, Platelet Count 225, Mean Platelet Volume 8.5, Neutrophils (%) (Auto) 51.5, Lymphocytes (%) (Auto) 29.9, Monocytes (%) (Auto) 17.1H, Eosinophils (%) (Auto) 0.8, Basophils (%) (Auto) 0.8, Sodium Level 137, Potassium Level 5.0, Chloride Level 94L, Carbon Dioxide Level 32, Anion Gap 11, Blood Urea Nitrogen 89H, Creatinine 8.9H, Estimat Glomerular Filtration Rate 5.5, Glucose Level 106, Calcium Level 8.9, Phosphorus Level 6.0H, Magnesium Level 2.7H, Total Bilirubin 0.5, Aspartate Amino Transf (AST/SGOT) 69H, Alanine Aminotransferase (ALT/SGPT) 26, Alkaline Phosphatase 344H, C-Reactive Protein, Quantitative 6.0H, Pro-B- Type Natriuretic Peptide 71175T, Total Protein 7.8, Albumin 3.1L, Globulin 4.7, Albumin/Globulin Ratio 0.7L Height (Feet): 5 Height (Inches): 7.00 Weight (Pounds): 250 General Appearance: lethargic EENT: normal ENT inspection Neck: normal alignment Cardiovascular: normal rate, regular rhythm Respiratory/Chest: no accessory muscle use Extremities: normal inspection Skin: normal pigmentation Roderick Henning JamarCecelia Feb 27, 2020 08:46
--- NOTE | 2020-02-27 09:15 | NUR ---
NURSE NOTES: Dr Byrnes on the unit to assess pt. Updated him on pt's current condition. Hemodialysis will be ordered for today. Pt's temperature was 100.6 this morning; cooling blanket turned on. No distress noted.
--- NOTE | 2020-02-27 09:58 | Nephrology Progress Note ---
Assessment/Plan Problem List: (1) Acute respiratory failure (2) ESRD (end stage renal disease) on dialysis (3) UTI (urinary tract infection) (4) Patient is Caodaism (5) Pacemaker (6) Diabetes (7) Obesity (BMI 30-39.9) Assessment ARDS (adult respiratory distress syndrome) Fever Sepsis UTI (urinary tract infection) Respiratory failure, intubated on ventilator Thrombocytopenia Lymphopenia End stage renal disease on dialysis. Has a right upper arm dialysis fistula as Acces . Getting dialysis Sunday. morbid obesity Anemia / Jehova's witness CAD previous stent HTN- hypertensive urgency upon arrival to [facility]. s/p AVG DM 2 bilateral eye blindness h/o CHF Pacemaker Plan Patient positive for Covid 19 Per ID and pulmonary, ventilator adjustment Last dialyzed February 24, will be dialyzed again today February 26 EPO, thiamin and b6 Phos binders NGT feeding per consultants Remains full code at this time Subjective ROS Limited/Unobtainable: Yes Objective Objective Last 24 Hour Vital Signs Date Time Temp Pulse Resp B/P (MAP) Pulse Ox O2 Delivery O2 Flow Rate FiO2 02/27/20 09:01 60 16 30 02/27/20 09:00 60 17 126/48 (74) 100 02/27/20 08:00 60 02/27/20 08:00 Mechanical Ventilator 02/27/20 08:00 100.6 60 16 121/49 (73) 100 02/27/20 08:00 30 02/27/20 07:23 60 16 30 02/27/20 07:00 60 16 130/53 (78) 100 02/27/20 06:30 60 16 02/27/20 06:00 61 16 115/47 (69) 100 02/27/20 05:23 61 16 30 02/27/20 05:00 60 17 117/45 (69) 100 02/27/20 04:00 30 02/27/20 04:00 Mechanical Ventilator 02/27/20 04:00 69 02/27/20 04:00 99.8 64 16 132/68 (89) 99 02/27/20 03:00 61 15 118/55 (76) 100 02/27/20 02:00 60 16 115/51 (72) 100 02/27/20 01:05 67 17 30 02/27/20 01:00 62 15 119/38 (65) 100 02/27/20 00:00 Mechanical Ventilator 02/27/20 00:00 99.0 66 16 148/42 (77) 100 02/26/20 23:24 62 16 30 02/26/20 23:00 60 15 99/36 (57) 100 02/26/20 22:00 63 18 113/31 (58) 99 02/26/20 21:05 63 17 30 02/26/20 21:00 65 15 144/58 (86) 100 02/26/20 20:00 70 02/26/20 20:00 Mechanical Ventilator 02/26/20 20:00 30 02/26/20 20:00 98.7 61 14 132/51 (78) 100 02/26/20 19:30 68 16 30 02/26/20 19:00 100.0 60 16 116/51 (72) 100 02/26/20 19:00 100.0 60 16 100 02/26/20 18:00 62 16 94/30 (51) 100 02/26/20 17:46 100.8 02/26/20 17:18 66 19 30 02/26/20 17:15 101.2 63 16 134/56 (82) 99 02/26/20 17:00 67 16 125/76 (92) 100 02/26/20 16:00 Mechanical Ventilator 02/26/20 16:00 61 16 133/41 (71) 99 02/26/20 16:00 30 02/26/20 16:00 65 02/26/20 15:02 66 17 30 02/26/20 15:00 66 16 145/59 (87) 100 02/26/20 14:00 60 16 121/53 (75) 99 02/26/20 13:19 63 17 30 02/26/20 13:00 62 15 119/51 (73) 100 02/26/20 12:00 98.5 61 16 122/59 (80) 100 02/26/20 12:00 61 02/26/20 12:00 30 02/26/20 12:00 Mechanical Ventilator 02/26/20 11:00 60 16 104/53 (70) 100 02/26/20 10:00 63 17 130/58 (82) 100 Intake and Output 02/26/20 02/27/20 19:00 07:00 Intake Total 676 ml 510 ml Output Total 25 ml 60 ml Balance 651 ml 450 ml Intake Free Water 90 ml IV Total 56 ml Tube Feeding 420 ml 420 ml Other 200 ml Output Urine Total 25 ml 60 ml # Bowel Movements 1 2 Laboratory Tests 02/27/20 04:30: White Blood Count 6.4, Red Blood Count 4.42, Hemoglobin 10.6L, Hematocrit 33.4L , Mean Corpuscular Volume 76L, Mean Corpuscular Hemoglobin 23.9L, Mean Corpuscular Hemoglobin Concent 31.6L, Red Cell Distribution Width 15.5H, Platelet Count 225, Mean Platelet Volume 8.5, Neutrophils (%) (Auto) 51.5, Lymphocytes (%) (Auto) 29.9, Monocytes (%) (Auto) 17.1H, Eosinophils (%) (Auto) 0.8, Basophils (%) (Auto) 0.8, Sodium Level 137, Potassium Level 5.0, Chloride Level 94L, Carbon Dioxide Level 32, Anion Gap 11, Blood Urea Nitrogen 89H, Creatinine 8.9H, Estimat Glomerular Filtration Rate 5.5, Glucose Level 106, Calcium Level 8.9, Phosphorus Level 6.0H, Magnesium Level 2.7H, Total Bilirubin 0.5, Aspartate Amino Transf (AST/SGOT) 69H, Alanine Aminotransferase (ALT/SGPT) 26, Alkaline Phosphatase 344H, C-Reactive Protein, Quantitative 6.0H, Pro-B- Type Natriuretic Peptide 58723R, Total Protein 7.8, Albumin 3.1L, Globulin 4.7, Albumin/Globulin Ratio 0.7L Height (Feet): 5 Height (Inches): 7.00 Weight (Pounds): 250 General Appearance: no apparent distress Cardiovascular: normal rate Respiratory/Chest: decreased breath sounds Abdomen: distended Bryan Hunter MD Feb 27, 2020 09:57
--- NOTE | 2020-02-27 10:45 | NUR ---
NURSE NOTES: Spoke to Carlitos at [facility] Nephrology @ to schedule HD for today, as ordered by Dr Hunter. Oral care completed and pt repositioned.
--- NOTE | 2020-02-27 11:18 | Pulmonolgy Critical Care Note ---
Critical Care - Asmt/Plan Problems: (1) COVID-19 virus infection (2) Acute respiratory failure (3) Sepsis (4) ESRD (end stage renal disease) on dialysis (5) Accelerated hypertension (6) Decubital ulcer (7) Pacemaker (8) Diabetes (9) Blindness of both eyes (10) Morbid obesity (11) HTN (hypertension) Respiratory: monitor respiratory rate, adjust FIO2, CXR Cardiac: continue pressors, continue to monitor HR/BP Renal: F/U I&O, keep IV fluid Infectious Disease: check cultures Gastrointestinal: continue feedings/current rate Endocrine: monitor blood sugar Hematologic: monitor H/H Neurologic: PRN Morphine Prophylaxis: Protonix 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, 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, consultants, patient case managermission manager - Objective Last 24 Hour Vital Signs Date Time Temp Pulse Resp B/P (MAP) Pulse Ox O2 Delivery O2 Flow Rate FiO2 02/27/20 10:30 60 16 30 02/27/20 10:00 60 16 122/46 (71) 100 02/27/20 09:01 60 16 30 02/27/20 09:00 60 17 126/48 (74) 100 02/27/20 08:00 60 02/27/20 08:00 Mechanical Ventilator 02/27/20 08:00 100.6 60 16 121/49 (73) 100 02/27/20 08:00 30 02/27/20 07:23 60 16 30 02/27/20 07:00 60 16 130/53 (78) 100 02/27/20 06:30 60 16 02/27/20 06:00 61 16 115/47 (69) 100 02/27/20 05:23 61 16 30 02/27/20 05:00 60 17 117/45 (69) 100 02/27/20 04:00 30 02/27/20 04:00 Mechanical Ventilator 02/27/20 04:00 69 02/27/20 04:00 99.8 64 16 132/68 (89) 99 02/27/20 03:00 61 15 118/55 (76) 100 02/27/20 02:00 60 16 115/51 (72) 100 02/27/20 01:05 67 17 30 02/27/20 01:00 62 15 119/38 (65) 100 02/27/20 00:00 Mechanical Ventilator 02/27/20 00:00 99.0 66 16 148/42 (77) 100 02/26/20 23:24 62 16 30 02/26/20 23:00 60 15 99/36 (57) 100 02/26/20 22:00 63 18 113/31 (58) 99 02/26/20 21:05 63 17 30 02/26/20 21:00 65 15 144/58 (86) 100 02/26/20 20:00 70 02/26/20 20:00 Mechanical Ventilator 02/26/20 20:00 30 02/26/20 20:00 98.7 61 14 132/51 (78) 100 02/26/20 19:30 68 16 30 02/26/20 19:00 100.0 60 16 116/51 (72) 100 02/26/20 19:00 100.0 60 16 100 02/26/20 18:00 62 16 94/30 (51) 100 02/26/20 17:46 100.8 02/26/20 17:18 66 19 30 02/26/20 17:15 101.2 63 16 134/56 (82) 99 02/26/20 17:00 67 16 125/76 (92) 100 02/26/20 16:00 Mechanical Ventilator 02/26/20 16:00 61 16 133/41 (71) 99 02/26/20 16:00 30 02/26/20 16:00 65 02/26/20 15:02 66 17 30 02/26/20 15:00 66 16 145/59 (87) 100 02/26/20 14:00 60 16 121/53 (75) 99 02/26/20 13:19 63 17 30 02/26/20 13:00 62 15 119/51 (73) 100 02/26/20 12:00 98.5 61 16 122/59 (80) 100 02/26/20 12:00 61 02/26/20 12:00 30 02/26/20 12:00 Mechanical Ventilator Status: sedated Condition: critical Neck: full ROM Lungs: chest wall tender Heart: HR/BP unstable Abdomen: soft, non-tender, feeding tube Extremities: edema Accucheck: 88 Critical Care - Subjective ROS Limited/Unobtainable: No Interval Events: still febrile Condition: critical EKG Rhythm: Sinus Rhythm FI02: 30 Vent Support Breath Rate: 16 Vent Support Mode: AC Vent Tidal Volume: 600 Sputum Amount: Small PEEP: 0.0 PIP: 23 Tube Feeding Amount: 35 I&O: Intake and Output 02/26/20 02/27/20 19:00 07:00 Intake Total 676 ml 510 ml Output Total 25 ml 60 ml Balance 651 ml 450 ml Intake Free Water 90 ml IV Total 56 ml Tube Feeding 420 ml 420 ml Other 200 ml Output Urine Total 25 ml 60 ml # Bowel Movements 1 2 ET-Tube: 7.5 ET Position: 25 Labs: Laboratory Tests Test 02/27/20 04:30 White Blood Count 6.4 K/UL (4.8-10.8) Red Blood Count 4.42 M/UL (4.20-5.40) Hemoglobin 10.6 G/DL (12.0-16.0) L Hematocrit 33.4 % (37.0-47.0) L Mean Corpuscular Volume 76 FL (80-99) L Mean Corpuscular Hemoglobin 23.9 PG (27.0-31.0) L Mean Corpuscular Hemoglobin Concent 31.6 G/DL (32.0-36.0) L Red Cell Distribution Width 15.5 % (11.6-14.8) H Platelet Count 225 K/UL (150-450) Mean Platelet Volume 8.5 FL (6.5-10.1) Neutrophils (%) (Auto) 51.5 % (45.0-75.0) Lymphocytes (%) (Auto) 29.9 % (20.0-45.0) Monocytes (%) (Auto) 17.1 % (1.0-10.0) H Eosinophils (%) (Auto) 0.8 % (0.0-3.0) Basophils (%) (Auto) 0.8 % (0.0-2.0) Sodium Level 137 MMOL/L (136-145) Potassium Level 5.0 MMOL/L (3.5-5.1) Chloride Level 94 MMOL/L (98-107) L Carbon Dioxide Level 32 MMOL/L (21-32) Anion Gap 11 mmol/L (5-15) Blood Urea Nitrogen 89 mg/dL (7-18) H Creatinine 8.9 MG/DL (0.55-1.30) H Estimat Glomerular Filtration Rate 5.5 mL/min (>60) Glucose Level 106 MG/DL (74-106) Calcium Level 8.9 MG/DL (8.5-10.1) Phosphorus Level 6.0 MG/DL (2.5-4.9) H Magnesium Level 2.7 MG/DL (1.8-2.4) H Total Bilirubin 0.5 MG/DL (0.2-1.0) Aspartate Amino Transf (AST/SGOT) 69 U/L (15-37) H Alanine Aminotransferase (ALT/SGPT) 26 U/L (12-78) Alkaline Phosphatase 344 U/L (46-116) H C-Reactive Protein, Quantitative 6.0 mg/dL (0.00-0.90) H Pro-B-Type Natriuretic Peptide 66399 pg/mL (0-125) H Total Protein 7.8 G/DL (6.4-8.2) Albumin 3.1 G/DL (3.4-5.0) L Globulin 4.7 g/dL Albumin/Globulin Ratio 0.7 (1.0-2.7) L Meghana Murillo MD Feb 27, 2020 11:18
--- NOTE | 2020-02-27 11:30 | NUR ---
NURSE NOTES: Spoke to NATHALIA Fry from [facility] and was advised that she will come to do dialysis in the evening. Pt is currently resting in bed, eyes closed but awake, moving lower extremities. No distress noted.
[2020-02-27] MEDS: Thiamine HCl 100 MG in D5W 55 ML IVPB SCH (12:25)
--- NOTE | 2020-02-27 14:00 | NUR ---
NURSE NOTES: Pt fully cleaned after having a large loose brown BM. Pt repositioned and oral care completed. Pt remains stable at this time.
--- NOTE | 2020-02-27 15:20 | Infectious Diseases Prog Note ---
Assessment/Plan Assessment/Plan ASSESSMENT: The patient is a 64-year-old female with Confirmed COVID-19. SARS-CoV PCR positive. Pneumonia Fever No leukocytosis -02/20 CXR: Mild pulmonary vascular congestion with subtle bilateral haziness , not significantly changed.Possible tiny pleural effusions. Cardiomegaly. -Bcx ngtd -sp cx normal gui Less likely UTI u/a wbc tnct, nit +, leuk +3; ucx cindy(colonizer) Hx of positive blood culture CONS ,persistent 02/04 BCx: CoNS 01/30 Bc: (1/2)CoNS and Citrobacter 01/27 , 02/01 Bc: CoNS - (outside facility, # of the +ve cultures are not clear) A 2D echo from outside facility did not show any evidence of vegetation as per Carido pt is high risk for CLAY: ( last admission ) Diabetes. CHF. ESRD. Hypertension. Obesity. PLAN: Plaquenil+azithromycin #4/. QTc 450 continue the patient on vancomycin, day # ? ( will Rx for probable SBE) 02/25 SP Ertapenem #8 02/24 DC amikacin #6 Monitor CBC. Monitor BMP. Monitor cultures (blood, Sp ) Airborne. Contact plus Isolation DW RN Subjective Allergies: Coded Allergies: NO KNOWN ALLERGIES (Unverified Allergy, Unknown, 10/15/15) Subjective still febrile to 100.6 FiO2 better 30% No leukocytosis no pressors responsive Objective Vital Signs Last 24 Hour Vital Signs Date Time Temp Pulse Resp B/P (MAP) Pulse Ox O2 Delivery O2 Flow Rate FiO2 02/27/20 14:30 60 16 30 02/27/20 14:00 60 18 116/47 (70) 100 02/27/20 13:05 60 16 30 02/27/20 13:00 60 16 107/43 (64) 100 02/27/20 12:00 30 02/27/20 12:00 97.9 60 16 113/43 (66) 100 02/27/20 12:00 Mechanical Ventilator 02/27/20 12:00 60 02/27/20 11:00 60 16 122/44 (70) 100 02/27/20 10:30 60 16 30 02/27/20 10:00 60 16 122/46 (71) 100 02/27/20 09:01 60 16 30 4/3/20 09:00 60 17 126/48 (74) 100 02/27/20 08:00 60 02/27/20 08:00 Mechanical Ventilator 02/27/20 08:00 100.6 60 16 121/49 (73) 100 02/27/20 08:00 30 02/27/20 07:23 60 16 30 02/27/20 07:00 60 16 130/53 (78) 100 02/27/20 06:30 60 16 02/27/20 06:00 61 16 115/47 (69) 100 02/27/20 05:23 61 16 30 02/27/20 05:00 60 17 117/45 (69) 100 02/27/20 04:00 30 02/27/20 04:00 Mechanical Ventilator 02/27/20 04:00 69 02/27/20 04:00 99.8 64 16 132/68 (89) 99 02/27/20 03:00 61 15 118/55 (76) 100 02/27/20 02:00 60 16 115/51 (72) 100 02/27/20 01:05 67 17 30 02/27/20 01:00 62 15 119/38 (65) 100 02/27/20 00:00 Mechanical Ventilator 02/27/20 00:00 99.0 66 16 148/42 (77) 100 02/26/20 23:24 62 16 30 02/26/20 23:00 60 15 99/36 (57) 100 02/26/20 22:00 63 18 113/31 (58) 99 02/26/20 21:05 63 17 30 02/26/20 21:00 65 15 144/58 (86) 100 02/26/20 20:00 70 02/26/20 20:00 Mechanical Ventilator 02/26/20 20:00 30 02/26/20 20:00 98.7 61 14 132/51 (78) 100 02/26/20 19:30 68 16 30 02/26/20 19:00 100.0 60 16 116/51 (72) 100 02/26/20 19:00 100.0 60 16 100 02/26/20 18:00 62 16 94/30 (51) 100 02/26/20 17:46 100.8 02/26/20 17:18 66 19 30 02/26/20 17:15 101.2 63 16 134/56 (82) 99 4/2/20 17:00 67 16 125/76 (92) 100 02/26/20 16:00 Mechanical Ventilator 02/26/20 16:00 61 16 133/41 (71) 99 02/26/20 16:00 30 02/26/20 16:00 65 Height (Feet): 5 Height (Inches): 7.00 Weight (Pounds): 250 Objective General Appearance: no acute distress HEENT: normocephalic, atraumatic Respiratory/Chest: no respiratory distress, no accessory muscle use, equal chest rise Abdomen: non distended Neuro: moving extremities Laboratory Tests Test 02/27/20 04:30 White Blood Count 6.4 K/UL (4.8-10.8) Red Blood Count 4.42 M/UL (4.20-5.40) Hemoglobin 10.6 G/DL (12.0-16.0) L Hematocrit 33.4 % (37.0-47.0) L Mean Corpuscular Volume 76 FL (80-99) L Mean Corpuscular Hemoglobin 23.9 PG (27.0-31.0) L Mean Corpuscular Hemoglobin Concent 31.6 G/DL (32.0-36.0) L Red Cell Distribution Width 15.5 % (11.6-14.8) H Platelet Count 225 K/UL (150-450) Mean Platelet Volume 8.5 FL (6.5-10.1) Neutrophils (%) (Auto) 51.5 % (45.0-75.0) Lymphocytes (%) (Auto) 29.9 % (20.0-45.0) Monocytes (%) (Auto) 17.1 % (1.0-10.0) H Eosinophils (%) (Auto) 0.8 % (0.0-3.0) Basophils (%) (Auto) 0.8 % (0.0-2.0) Sodium Level 137 MMOL/L (136-145) Potassium Level 5.0 MMOL/L (3.5-5.1) Chloride Level 94 MMOL/L (98-107) L Carbon Dioxide Level 32 MMOL/L (21-32) Anion Gap 11 mmol/L (5-15) Blood Urea Nitrogen 89 mg/dL (7-18) H Creatinine 8.9 MG/DL (0.55-1.30) H Estimat Glomerular Filtration Rate 5.5 mL/min (>60) Glucose Level 106 MG/DL (74-106) Calcium Level 8.9 MG/DL (8.5-10.1) Phosphorus Level 6.0 MG/DL (2.5-4.9) H Magnesium Level 2.7 MG/DL (1.8-2.4) H Total Bilirubin 0.5 MG/DL (0.2-1.0) Aspartate Amino Transf (AST/SGOT) 69 U/L (15-37) H Alanine Aminotransferase (ALT/SGPT) 26 U/L (12-78) Alkaline Phosphatase 344 U/L (46-116) H C-Reactive Protein, Quantitative 6.0 mg/dL (0.00-0.90) H Pro-B-Type Natriuretic Peptide 94235 pg/mL (0-125) H Total Protein 7.8 G/DL (6.4-8.2) Albumin 3.1 G/DL (3.4-5.0) L Globulin 4.7 g/dL Albumin/Globulin Ratio 0.7 (1.0-2.7) L Current Medications Medications (Trade) Dose Ordered Sig/Josi Route PRN Reason Start Time Stop Time Status Last Admin Dose Admin Acetaminophen (Tylenol) 650 mg Q4H PRN GT fever 02/25/20 06:30 03/26/20 06:29 02/26/20 17:16 Albuterol/ Ipratropium (Combivent Respimat) 1 puffs Q4H PRN INH Shortness of Breath 02/25/20 06:30 03/26/20 06:29 Atorvastatin Calcium (Lipitor) 10 mg BEDTIME NG 02/25/20 21:00 05/25/20 20:59 02/26/20 20:35 Azithromycin (Zithromax) 250 mg DAILY NG 02/25/20 09:00 03/03/20 08:59 02/27/20 08:32 Epoetin Jose De Jesus (Epoetin Jose De Jesus(ESRD on dialysis)) 3,000 unit SUN-SUN-SUN SUBQ 02/25/20 21:00 05/25/20 20:59 02/25/20 21:16 Ertapenem 0.5 gm/ Sodium Chloride 55 ml @ 110 mls/hr Q24H IV 02/25/20 20:00 03/01/20 19:59 02/26/20 20:27 Heparin Sodium (Porcine) (Heparin 5000 units/ml) 5,000 units EVERY 12 HOURS SUBQ 02/25/20 09:00 04/10/20 08:59 02/27/20 08:32 Hydralazine HCl (Apresoline) 10 mg Q4H PRN IV Blood pressure over 160 systol 02/25/20 06:30 05/25/20 06:29 Hydromorphone HCl (Dilaudid) 0.5 mg Q4H PRN IVP For Pain 02/25/20 06:30 03/03/20 06:29 Hydroxychloroquine Sulfate (Plaquenil) 200 mg BID NG 02/25/20 18:00 02/29/20 09:01 02/27/20 08:36 Insulin Aspart (NovoLOG) BEFORE MEALS AND HS SUBQ 02/20/20 12:30 05/20/20 12:29 02/26/20 17:15 Labetalol HCl (Normodyne) 20 mg Q1H PRN IV sbp more than 180mmHg 02/25/20 06:30 03/26/20 06:29 Lorazepam (Ativan 2mg/ml 1ml) 2 mg Q2H PRN IV For Anxiety 02/25/20 06:30 03/03/20 06:29 02/25/20 09:13 Ondansetron HCl (Zofran) 4 mg Q6H PRN IVP Nausea & Vomiting 02/25/20 06:30 03/26/20 06:29 Pantoprazole (Protonix) 40 mg Q12HR IVP 02/25/20 09:00 03/26/20 08:59 02/27/20 08:31 Pyridoxine HCl (Vitamin B6) 50 mg DAILY NG 02/25/20 09:00 03/26/20 08:59 02/27/20 08:31 Sevelamer Carbonate (Renvela) 800 mg Q6HR NG 02/25/20 12:00 05/25/20 11:59 02/27/20 12:25 Thiamine HCl 100 mg/Dextrose 56 ml @ 112 mls/hr Q24H IVPB 02/25/20 12:00 03/26/20 11:59 02/27/20 12:25 Vancomycin HCl (Vanco rx to dose) 1 ea DAILY PRN MISC . 02/25/20 06:30 03/26/20 06:29 Clarice Nicolas MD Feb 27, 2020 15:20
--- NOTE | 2020-02-27 16:00 | NUR ---
NURSE NOTES: Dr Nicolas and Dr Reyna on the unit assessing the pt. Updated them on patient's current condition. No new orders received at this time.
--- NOTE | 2020-02-27 16:04 | Cardiology Progress Note ---
Assessment/Plan Assessment/Plan 1. Respiratory failure. 2. History of obesity hypoventilation syndrome. 3. History of pulmonary hypertension previously. 4. Urinary tract infection. 5. covid 19 infection confimred 6. Questionable pneumonia. 7. History of bacteremia with Staph epi recently on 02/05/2020. i did not examine pt personally i did not feel the risk to me personally are worth the limited information that could be obtained while pt is not communicative and on a vent with confirmed covid 19 tele reviewed sinus atrial paced hemodynamically stable but to day bp has been fluctuating had one diarrhea or loose today per rn saturation and secretion have been ok still with a fever but so far not as high d/w rn sats are 100% on 30% fio2 still no weaning perfomred today on abx holding off in ordering echo at this time due to active covid 19 infecion watch bp off bp meds wean when safe and feasible i saw her from out side the door looks quite comfortable all labs reviewed wbs still ok Subjective ROS Limited/Unobtainable: Yes Objective Last 24 Hour Vital Signs Date Time Temp Pulse Resp B/P (MAP) Pulse Ox O2 Delivery O2 Flow Rate FiO2 02/27/20 14:30 60 16 30 02/27/20 14:00 60 18 116/47 (70) 100 02/27/20 13:05 60 16 30 02/27/20 13:00 60 16 107/43 (64) 100 02/27/20 12:00 30 02/27/20 12:00 97.9 60 16 113/43 (66) 100 02/27/20 12:00 Mechanical Ventilator 02/27/20 12:00 60 02/27/20 11:00 60 16 122/44 (70) 100 02/27/20 10:30 60 16 30 02/27/20 10:00 60 16 122/46 (71) 100 02/27/20 09:01 60 16 30 02/27/20 09:00 60 17 126/48 (74) 100 02/27/20 08:00 60 02/27/20 08:00 Mechanical Ventilator 02/27/20 08:00 100.6 60 16 121/49 (73) 100 02/27/20 08:00 30 02/27/20 07:23 60 16 30 02/27/20 07:00 60 16 130/53 (78) 100 02/27/20 06:30 60 16 02/27/20 06:00 61 16 115/47 (69) 100 02/27/20 05:23 61 16 30 02/27/20 05:00 60 17 117/45 (69) 100 02/27/20 04:00 30 02/27/20 04:00 Mechanical Ventilator 02/27/20 04:00 69 02/27/20 04:00 99.8 64 16 132/68 (89) 99 02/27/20 03:00 61 15 118/55 (76) 100 02/27/20 02:00 60 16 115/51 (72) 100 02/27/20 01:05 67 17 30 02/27/20 01:00 62 15 119/38 (65) 100 02/27/20 00:00 Mechanical Ventilator 02/27/20 00:00 99.0 66 16 148/42 (77) 100 02/26/20 23:24 62 16 30 02/26/20 23:00 60 15 99/36 (57) 100 02/26/20 22:00 63 18 113/31 (58) 99 02/26/20 21:05 63 17 30 02/26/20 21:00 65 15 144/58 (86) 100 02/26/20 20:00 70 02/26/20 20:00 Mechanical Ventilator 02/26/20 20:00 30 02/26/20 20:00 98.7 61 14 132/51 (78) 100 02/26/20 19:30 68 16 30 02/26/20 19:00 100.0 60 16 116/51 (72) 100 02/26/20 19:00 100.0 60 16 100 02/26/20 18:00 62 16 94/30 (51) 100 02/26/20 17:46 100.8 02/26/20 17:18 66 19 30 02/26/20 17:15 101.2 63 16 134/56 (82) 99 02/26/20 17:00 67 16 125/76 (92) 100 General Appearance: no apparent distress, alert, on vent, patient on isolation Intake and Output 02/26/20 02/27/20 19:00 07:00 Intake Total 676 ml 510 ml Output Total 25 ml 60 ml Balance 651 ml 450 ml Intake Free Water 90 ml IV Total 56 ml Tube Feeding 420 ml 420 ml Other 200 ml Output Urine Total 25 ml 60 ml # Bowel Movements 1 2 Laboratory Tests Test 02/27/20 04:30 White Blood Count 6.4 K/UL (4.8-10.8) Red Blood Count 4.42 M/UL (4.20-5.40) Hemoglobin 10.6 G/DL (12.0-16.0) L Hematocrit 33.4 % (37.0-47.0) L Mean Corpuscular Volume 76 FL (80-99) L Mean Corpuscular Hemoglobin 23.9 PG (27.0-31.0) L Mean Corpuscular Hemoglobin Concent 31.6 G/DL (32.0-36.0) L Red Cell Distribution Width 15.5 % (11.6-14.8) H Platelet Count 225 K/UL (150-450) Mean Platelet Volume 8.5 FL (6.5-10.1) Neutrophils (%) (Auto) 51.5 % (45.0-75.0) Lymphocytes (%) (Auto) 29.9 % (20.0-45.0) Monocytes (%) (Auto) 17.1 % (1.0-10.0) H Eosinophils (%) (Auto) 0.8 % (0.0-3.0) Basophils (%) (Auto) 0.8 % (0.0-2.0) Sodium Level 137 MMOL/L (136-145) Potassium Level 5.0 MMOL/L (3.5-5.1) Chloride Level 94 MMOL/L (98-107) L Carbon Dioxide Level 32 MMOL/L (21-32) Anion Gap 11 mmol/L (5-15) Blood Urea Nitrogen 89 mg/dL (7-18) H Creatinine 8.9 MG/DL (0.55-1.30) H Estimat Glomerular Filtration Rate 5.5 mL/min (>60) Glucose Level 106 MG/DL (74-106) Calcium Level 8.9 MG/DL (8.5-10.1) Phosphorus Level 6.0 MG/DL (2.5-4.9) H Magnesium Level 2.7 MG/DL (1.8-2.4) H Total Bilirubin 0.5 MG/DL (0.2-1.0) Aspartate Amino Transf (AST/SGOT) 69 U/L (15-37) H Alanine Aminotransferase (ALT/SGPT) 26 U/L (12-78) Alkaline Phosphatase 344 U/L (46-116) H C-Reactive Protein, Quantitative 6.0 mg/dL (0.00-0.90) H Pro-B-Type Natriuretic Peptide 70535 pg/mL (0-125) H Total Protein 7.8 G/DL (6.4-8.2) Albumin 3.1 G/DL (3.4-5.0) L Globulin 4.7 g/dL Albumin/Globulin Ratio 0.7 (1.0-2.7) L Wilfredo Reyna MD Feb 27, 2020 16:04
--- NOTE | 2020-02-27 18:00 | NUR ---
NURSE NOTES: Turned and repositioned for comfort. Suctioned secretions and oral care completed. 02 sat 100%
--- NOTE | 2020-02-27 19:24 | NUR ---
HAND-OFF: Report given to Sugar Landrum RN
--- NOTE | 2020-02-27 19:25 | NUR ---
NURSE NOTES: Endorsement received from NATHALIA Morejon. Patient orally intubated with ETT 7.5, 25 lipline. AC 16, 600, 30%. NGT at right nare, on Nepro 35 ml/hr. With right upper arm AV shunt. Left wrist g22, left upper arm g22. Tyler catheter in place, connected to urimeter. On cooling blanket. Bilateral soft wrists restraints for attempting to pull out tubings. Head of bed elevated. Bed locked and in low position. Bed alarm on. Call light within reach. On Airborne and contact precautions.
[2020-02-27] MEDS: Epoetin Alfa-EPBX(ESRD on dialysis)3000 units/ml vial SUBQ SCH (20:24)
--- NOTE | 2020-02-27 20:30 | NUR ---
NURSE NOTES: Dialysis nurse at bedside. As per her to hold the Heparin SQ. Heparin wasted. NGT at right nare occluded, unable to flush with warm water and cranberry juice. Inserted OGT, placement confirmed per auscultation. With bowel sounds noted upon introduction of air into the tube. Head of bed kept elevated.
--- NOTE | 2020-02-27 23:00 | NUR ---
NURSE NOTES: Dialysis finished, patient tolerated. As per HD nurse, 3L output.
[2020-02-28] VITALS (24 sets, daily range): BP systolic 90–136; BP diastolic 30–70
--- NOTE | 2020-02-28 | NUR ---
NURSE NOTES: Patient passed 1 soft brown stool. Bed bath and change of linens done. Patient able to assist turning side to side.
--- NOTE | 2020-02-28 02:00 | NUR ---
NURSE NOTES: Patient asleep. No signs of pain or discomfort.
--- NOTE | 2020-02-28 04:00 | NUR ---
NURSE NOTES: Patient afebrile. A paced on the monitor. No shortness of breath.
--- NOTE | 2020-02-28 05:00 | NUR ---
NURSE NOTES: Blood sample taken and sent to the lab. Due medications given.
[2020-02-28] MEDS: Renvela 800mg Pkt NG SCH ×3 (05:18→17:08)
[2020-02-28] MEDS: NovoLOG Insulin Flexpen SUBQ SCH ×4 (05:19→21:20)
--- NOTE | 2020-02-28 06:21 | Pulmonolgy Critical Care Note ---
Critical Care - Asmt/Plan Problems: (1) COVID-19 virus infection (2) Acute respiratory failure (3) Sepsis (4) ESRD (end stage renal disease) on dialysis (5) Accelerated hypertension (6) Decubital ulcer (7) Pacemaker (8) Diabetes (9) Blindness of both eyes (10) Morbid obesity (11) HTN (hypertension) Respiratory: monitor respiratory rate, adjust FIO2, CXR Cardiac: continue pressors, continue to monitor HR/BP Renal: F/U I&O, check electrolytes Infectious Disease: check cultures, continue antibiotics Gastrointestinal: continue feedings/current rate Endocrine: monitor blood sugar Hematologic: monitor H/H, transfuse if hgb<8.5 Neurologic: PRN Ativan, PRN Morphine, keep patient comfortable Affect: PRN ativan Time Spent (Minutes): 40 Notes Reviewed: 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 pin gauger, cardio, 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, consultants, director caseentry level manager - Objective Last 24 Hour Vital Signs Date Time Temp Pulse Resp B/P (MAP) Pulse Ox O2 Delivery O2 Flow Rate FiO2 02/28/20 05:11 62 16 30 02/28/20 05:00 62 16 136/41 (72) 98 02/28/20 04:00 99.6 64 16 125/45 (71) 100 02/28/20 04:00 30 02/28/20 04:00 Mechanical Ventilator 02/28/20 04:00 60 02/28/20 03:44 60 16 30 02/28/20 03:00 62 16 135/51 (79) 99 02/28/20 02:00 65 17 134/53 (80) 99 02/28/20 01:51 66 18 30 02/28/20 01:00 66 15 134/43 (73) 99 02/28/20 00:00 66 02/28/20 00:00 99.3 67 15 116/47 (70) 98 02/28/20 00:00 30 02/28/20 00:00 Mechanical Ventilator 02/27/20 23:49 66 24 30 02/27/20 23:15 66 16 111/55 (73) 100 02/27/20 23:00 66 19 88/42 (57) 98 02/27/20 22:00 67 17 99/49 (66) 99 02/27/20 21:48 71 21 30 02/27/20 21:00 67 17 100/47 (64) 100 02/27/20 20:00 Mechanical Ventilator 02/27/20 20:00 99.9 60 16 113/55 (74) 100 02/27/20 20:00 30 02/27/20 20:00 60 02/27/20 19:42 60 18 30 02/27/20 19:00 61 18 134/51 (78) 100 02/27/20 18:00 100.0 60 16 136/49 (78) 100 02/27/20 17:07 60 17 30 02/27/20 17:00 60 16 115/56 (75) 100 02/27/20 16:00 60 02/27/20 16:00 Mechanical Ventilator 02/27/20 16:00 100.7 60 16 111/37 (61) 100 02/27/20 16:00 30 02/27/20 15:00 60 16 111/34 (59) 100 02/27/20 14:30 60 16 30 02/27/20 14:00 101.0 60 18 116/47 (70) 100 02/27/20 13:05 60 16 30 02/27/20 13:00 60 16 107/43 (64) 100 02/27/20 12:00 30 02/27/20 12:00 97.9 60 16 113/43 (66) 100 02/27/20 12:00 Mechanical Ventilator 02/27/20 12:00 60 02/27/20 11:00 60 16 122/44 (70) 100 02/27/20 10:30 60 16 30 02/27/20 10:00 60 16 122/46 (71) 100 02/27/20 09:01 60 16 30 02/27/20 09:00 60 17 126/48 (74) 100 02/27/20 08:00 60 02/27/20 08:00 Mechanical Ventilator 02/27/20 08:00 100.6 60 16 121/49 (73) 100 02/27/20 08:00 30 02/27/20 07:23 60 16 30 02/27/20 07:00 60 16 130/53 (78) 100 02/27/20 06:30 60 16 Status: awake Condition: critical HEENT: atraumatic, normocephalic Lungs: rales Heart: HR/BP stable, HR/BP unstable Abdomen: soft, non-tender Extremities: no C/C/E Accucheck: 116 Critical Care - Subjective ROS Limited/Unobtainable: Yes Interval Events: comfortable, still spiking fevers. Condition: critical FI02: 30 Vent Support Breath Rate: 16 Vent Support Mode: AC Vent Tidal Volume: 600 Sputum Amount: Small PEEP: 0.0 PIP: 29 Tube Feeding Amount: 35 I&O: Intake and Output 02/27/20 02/28/20 19:00 07:00 Intake Total 506 ml 315 ml Output Total 90 ml 3000 ml Balance 416 ml -2685 ml IV Total 56 ml Tube Feeding 350 ml 315 ml Other 100 ml Output Urine Total 30 ml 0 ml Hemodialysis UF 3000 ml Other 60 ml # Bowel Movements 1 1 ET-Tube: 7.5 ET Position: 25 Meghana Murillo MD Feb 28, 2020 06:21
--- NOTE | 2020-02-28 06:30 | NUR ---
NURSE NOTES: Patient seen by Dr. Murillo. No new orders received at this time.
--- NOTE | 2020-02-28 07:05 | NUR ---
HAND-OFF: Report given to NATHALIA Morejon.
--- NOTE | 2020-02-28 07:12 | NUR ---
NURSE NOTES: Received report from Sugar Landrum RN. Pt observed lying in bed with eyes close, easily arousable to voice. Orally intubated; ETT 7.5, 25cm @ the lipline. AC 16, TV 600, FiO2 30%, 0 PEEP. 02 sat 100%. A paced on potline monitor (65) at this time. Tolerating feeding Nepro at 35ml/hr via OGT. HOB kept elevated. Aspiration precautions maintained. PIV Lt upper arm #22 and Lt wrist #22. Received and maintained on Bilateral soft wrist restraints for safety to avoid self extubation. AV shunt MANISHA with good bruit. Pt is oliguric, Tyler catheter draining to gravity/urometer with minimal amount of pink tinged urine. On P200 mattress with BL heels and legs elevated. Bed locked and in lowest position. Will resume plan of care.
[2020-02-28 07:25] LABS: ANION GAP 10 mmol/L (5-15); BLOOD UREA NITROGEN 63 mg/dL (7-18); CARBON DIOXIDE 33 MMOL/L (21-32); CHLORIDE 97 MMOL/L (98-107); CREATININE 7.1 MG/DL (0.55-1.30); POTASSIUM 4.4 MMOL/L (3.5-5.1); SODIUM 140 MMOL/L (136-145)
[2020-02-28 07:35] LABS: BASOPHILS % (AUTO) 0.6 % (0.0-2.0); HEMATOCRIT 32.3 % (37.0-47.0); HEMOGLOBIN 10.2 G/DL (12.0-16.0); LYMPHOCYTES % (AUTO) 22.8 % (20.0-45.0); MEAN CORPUSCULAR VOLUME 75 FL (80-99); MONOCYTES % (AUTO) 19.4 % (1.0-10.0); NEUTROPHILS % (AUTO) 56.3 % (45.0-75.0); PLATELET COUNT 239 K/UL (150-450); RED CELL DISTRIBUTION WIDTH 15.1 % (11.6-14.8)
[2020-02-28] MEDS: Pyridoxine 50mg tab NG SCH (08:40)
[2020-02-28] MEDS: Pantoprazole Inj IVP SCH ×2 (08:40→20:55)
[2020-02-28] MEDS: Heparin 5000 units/ml inj SUBQ SCH ×2 (08:41→20:56)
[2020-02-28] MEDS: Azithromycin 250mg tab NG SCH (08:41)
--- NOTE | 2020-02-28 09:17 | General Progress Note ---
Assessment/Plan Problem List: (1) Obesity (BMI 30-39.9) ICD Codes: E66.9 - Obesity, unspecified SNOMED: 620577395, 128410507 (2) COVID-19 virus infection ICD Codes: U07.1 - COVID-19 SNOMED: 903404667 (3) Acute respiratory failure ICD Codes: J96.00 - Acute respiratory failure, unspecified whether with hypoxia or hypercapnia SNOMED: 13340580 (4) Blindness of both eyes ICD Codes: H54.0 - Blindness SNOMED: 296920295 (5) ESRD (end stage renal disease) on dialysis ICD Codes: N18.6 - End stage renal disease; Z99.2 - Dependence on renal dialysis SNOMED: 181630811 (6) Anemia ICD Codes: D64.9 - Anemia, unspecified SNOMED: 415291555 (7) Diabetes ICD Codes: E11.9 - Type 2 diabetes mellitus without complications SNOMED: 22539063 (8) AMS (altered mental status) ICD Codes: R41.82 - Altered mental status, unspecified SNOMED: 255673364 Status: unchanged Assessment/Plan: vent abx dialysis cbc bmp am Subjective Constitutional: Reports: weakness Allergies: Coded Allergies: NO KNOWN ALLERGIES (Unverified Allergy, Unknown, 10/15/15) All Systems: reviewed and negative except above Subjective intubated sedated ng in icu Objective Last 24 Hour Vital Signs Date Time Temp Pulse Resp B/P (MAP) Pulse Ox O2 Delivery O2 Flow Rate FiO2 02/28/20 08:49 60 16 30 02/28/20 07:00 64 18 131/40 (70) 99 02/28/20 07:00 62 17 30 02/28/20 06:30 62 20 02/28/20 06:00 61 17 133/32 (65) 99 02/28/20 05:11 62 16 30 02/28/20 05:00 62 16 136/41 (72) 98 02/28/20 04:00 99.6 64 16 125/45 (71) 100 02/28/20 04:00 30 02/28/20 04:00 Mechanical Ventilator 02/28/20 04:00 60 02/28/20 03:44 60 16 30 02/28/20 03:00 62 16 135/51 (79) 99 02/28/20 02:00 65 17 134/53 (80) 99 02/28/20 01:51 66 18 30 02/28/20 01:00 66 15 134/43 (73) 99 02/28/20 00:00 66 02/28/20 00:00 99.3 67 15 116/47 (70) 98 02/28/20 00:00 30 02/28/20 00:00 Mechanical Ventilator 02/27/20 23:49 66 24 30 02/27/20 23:15 66 16 111/55 (73) 100 02/27/20 23:00 66 19 88/42 (57) 98 02/27/20 22:00 67 17 99/49 (66) 99 02/27/20 21:48 71 21 30 02/27/20 21:00 67 17 100/47 (64) 100 02/27/20 20:00 Mechanical Ventilator 02/27/20 20:00 99.9 60 16 113/55 (74) 100 02/27/20 20:00 30 02/27/20 20:00 60 02/27/20 19:42 60 18 30 02/27/20 19:00 61 18 134/51 (78) 100 02/27/20 18:00 100.0 60 16 136/49 (78) 100 02/27/20 17:07 60 17 30 02/27/20 17:00 60 16 115/56 (75) 100 02/27/20 16:00 60 02/27/20 16:00 Mechanical Ventilator 02/27/20 16:00 100.7 60 16 111/37 (61) 100 02/27/20 16:00 30 02/27/20 15:00 60 16 111/34 (59) 100 02/27/20 14:30 60 16 30 02/27/20 14:00 101.0 60 18 116/47 (70) 100 02/27/20 13:05 60 16 30 02/27/20 13:00 60 16 107/43 (64) 100 02/27/20 12:00 30 02/27/20 12:00 97.9 60 16 113/43 (66) 100 02/27/20 12:00 Mechanical Ventilator 02/27/20 12:00 60 02/27/20 11:00 60 16 122/44 (70) 100 4/3/20 10:30 60 16 30 02/27/20 10:00 60 16 122/46 (71) 100 Intake and Output 02/27/20 02/28/20 19:00 07:00 Intake Total 506 ml 385 ml Output Total 90 ml 3000 ml Balance 416 ml -2615 ml IV Total 56 ml Tube Feeding 350 ml 385 ml Other 100 ml Output Urine Total 30 ml 0 ml Hemodialysis UF 3000 ml Other 60 ml # Bowel Movements 1 1 Laboratory Tests 02/28/20 05:00: White Blood Count 6.0, Red Blood Count 4.30, Hemoglobin 10.2L, Hematocrit 32.3L , Mean Corpuscular Volume 75L, Mean Corpuscular Hemoglobin 23.8L, Mean Corpuscular Hemoglobin Concent 31.6L, Red Cell Distribution Width 15.1H, Platelet Count 239, Mean Platelet Volume 7.6, Neutrophils (%) (Auto) 56.3, Lymphocytes (%) (Auto) 22.8, Monocytes (%) (Auto) 19.4H, Eosinophils (%) (Auto) 1.0, Basophils (%) (Auto) 0.6, Sodium Level 140, Potassium Level 4.4, Chloride Level 97L, Carbon Dioxide Level 33H, Anion Gap 10, Blood Urea Nitrogen 63H, Creatinine 7.1H, Estimat Glomerular Filtration Rate 7.2, Glucose Level 101, Calcium Level 9.0 Height (Feet): 5 Height (Inches): 7.00 Weight (Pounds): 248 General Appearance: lethargic EENT: normal ENT inspection Neck: normal alignment Cardiovascular: normal rate, regular rhythm Respiratory/Chest: no accessory muscle use Extremities: normal inspection Skin: normal pigmentation Roderick Henning DO Feb 28, 2020 09:17
--- NOTE | 2020-02-28 09:30 | NUR ---
NURSE NOTES: Dr Hunter on the unit assessing the pt. Updated him on pt's current condition. Will order dialysis for Sunday. Pt currently laying in bed, no distress noted.
--- NOTE | 2020-02-28 09:58 | Nephrology Progress Note ---
Assessment/Plan Problem List: (1) Acute respiratory failure (2) ESRD (end stage renal disease) on dialysis (3) UTI (urinary tract infection) (4) Patient is Caodaism (5) Pacemaker (6) Diabetes (7) Obesity (BMI 30-39.9) Assessment ARDS (adult respiratory distress syndrome) Fever Sepsis UTI (urinary tract infection) Respiratory failure, intubated on ventilator Thrombocytopenia Lymphopenia End stage renal disease on dialysis. Has a right upper arm dialysis fistula as Acces . Getting dialysis Sunday. morbid obesity Anemia / Jehova's witness CAD previous stent HTN- hypertensive urgency upon arrival to [facility]. s/p AVG DM 2 bilateral eye blindness h/o CHF Pacemaker Plan Patient positive for Covid 19 Per ID and pulmonary, ventilator adjustment Last dialyzed February 26, next dialysis March 01 EPO, thiamin and b6 Phos binders NGT feeding per consultants Remains full code at this time Subjective ROS Limited/Unobtainable: Yes Objective Objective Last 24 Hour Vital Signs Date Time Temp Pulse Resp B/P (MAP) Pulse Ox O2 Delivery O2 Flow Rate FiO2 02/28/20 09:00 61 14 98/60 (73) 99 02/28/20 08:49 60 16 30 02/28/20 08:00 30 02/28/20 08:00 Mechanical Ventilator 02/28/20 08:00 99.3 60 16 134/47 (76) 98 02/28/20 07:00 64 18 131/40 (70) 99 02/28/20 07:00 62 17 30 02/28/20 06:30 62 20 02/28/20 06:00 61 17 133/32 (65) 99 02/28/20 05:11 62 16 30 02/28/20 05:00 62 16 136/41 (72) 98 02/28/20 04:00 99.6 64 16 125/45 (71) 100 02/28/20 04:00 30 02/28/20 04:00 Mechanical Ventilator 02/28/20 04:00 60 02/28/20 03:44 60 16 30 02/28/20 03:00 62 16 135/51 (79) 99 02/28/20 02:00 65 17 134/53 (80) 99 02/28/20 01:51 66 18 30 02/28/20 01:00 66 15 134/43 (73) 99 02/28/20 00:00 66 02/28/20 00:00 99.3 67 15 116/47 (70) 98 02/28/20 00:00 30 02/28/20 00:00 Mechanical Ventilator 02/27/20 23:49 66 24 30 02/27/20 23:15 66 16 111/55 (73) 100 02/27/20 23:00 66 19 88/42 (57) 98 02/27/20 22:00 67 17 99/49 (66) 99 02/27/20 21:48 71 21 30 02/27/20 21:00 67 17 100/47 (64) 100 02/27/20 20:00 Mechanical Ventilator 02/27/20 20:00 99.9 60 16 113/55 (74) 100 02/27/20 20:00 30 02/27/20 20:00 60 02/27/20 19:42 60 18 30 02/27/20 19:00 61 18 134/51 (78) 100 02/27/20 18:00 100.0 60 16 136/49 (78) 100 02/27/20 17:07 60 17 30 02/27/20 17:00 60 16 115/56 (75) 100 02/27/20 16:00 60 02/27/20 16:00 Mechanical Ventilator 02/27/20 16:00 100.7 60 16 111/37 (61) 100 02/27/20 16:00 30 02/27/20 15:00 60 16 111/34 (59) 100 02/27/20 14:30 60 16 30 02/27/20 14:00 101.0 60 18 116/47 (70) 100 02/27/20 13:05 60 16 30 02/27/20 13:00 60 16 107/43 (64) 100 02/27/20 12:00 30 02/27/20 12:00 97.9 60 16 113/43 (66) 100 02/27/20 12:00 Mechanical Ventilator 02/27/20 12:00 60 02/27/20 11:00 60 16 122/44 (70) 100 02/27/20 10:30 60 16 30 02/27/20 10:00 60 16 122/46 (71) 100 Intake and Output 02/27/20 02/28/20 19:00 07:00 Intake Total 506 ml 385 ml Output Total 90 ml 3000 ml Balance 416 ml -2615 ml IV Total 56 ml Tube Feeding 350 ml 385 ml Other 100 ml Output Urine Total 30 ml 0 ml Hemodialysis UF 3000 ml Other 60 ml # Bowel Movements 1 1 Laboratory Tests 02/28/20 05:00: White Blood Count 6.0, Red Blood Count 4.30, Hemoglobin 10.2L, Hematocrit 32.3L , Mean Corpuscular Volume 75L, Mean Corpuscular Hemoglobin 23.8L, Mean Corpuscular Hemoglobin Concent 31.6L, Red Cell Distribution Width 15.1H, Platelet Count 239, Mean Platelet Volume 7.6, Neutrophils (%) (Auto) 56.3, Lymphocytes (%) (Auto) 22.8, Monocytes (%) (Auto) 19.4H, Eosinophils (%) (Auto) 1.0, Basophils (%) (Auto) 0.6, Sodium Level 140, Potassium Level 4.4, Chloride Level 97L, Carbon Dioxide Level 33H, Anion Gap 10, Blood Urea Nitrogen 63H, Creatinine 7.1H, Estimat Glomerular Filtration Rate 7.2, Glucose Level 101, Calcium Level 9.0 Height (Feet): 5 Height (Inches): 7.00 Weight (Pounds): 248 General Appearance: no apparent distress EENT: other - Intubated and vented Cardiovascular: normal rate Respiratory/Chest: decreased breath sounds Abdomen: soft Bryan Hunter MD Feb 28, 2020 09:58
--- NOTE | 2020-02-28 10:20 | NUR ---
NURSE NOTES: Spoke to Dwayne at [facility] [phone] to schedule HD for 4/6, as ordered by Dr. Hunter.
--- NOTE | 2020-02-28 12:00 | NUR ---
NURSE NOTES: Pt fully cleaned after a large brown loose bowel movement. Linens changed; pt able to turn in bed. Pt is tolerating tube feedings- Nepro @35mL/hr. Pt maintained on BL soft wrist restraints for safety; pulses palpable, no swelling and surrounding skin color normal.
[2020-02-28] MEDS: Thiamine HCl 100 MG in D5W 55 ML IVPB SCH (12:04)
--- NOTE | 2020-02-28 12:28 | Infectious Diseases Prog Note ---
Assessment/Plan Assessment/Plan ASSESSMENT: The patient is a 64-year-old female with Confirmed COVID-19. SARS-CoV PCR positive. Pneumonia Fever persists No leukocytosis -02/20 CXR: Mild pulmonary vascular congestion with subtle bilateral haziness , not significantly changed.Possible tiny pleural effusions. Cardiomegaly. -Bcx ngtd -sp cx normal gui Less likely UTI u/a wbc tnct, nit +, leuk +3; ucx cindy(colonizer) Hx of positive blood culture CONS ,persistent 02/04 BCx: CoNS 01/30 Bc: (1/2)CoNS and Citrobacter 01/27 , 02/01 Bc: CoNS - (outside facility, # of the +ve cultures are not clear) A 2D echo from outside facility did not show any evidence of vegetation as per Carido pt is high risk for CLAY: ( last admission ) Diabetes. CHF. ESRD. Hypertension. Obesity. PLAN: Plaquenil+azithromycin # 5/ QTc 450 continue the patient on vancomycin, day # ? ( will Rx for probable SBE) 02/25 SP Ertapenem #8 02/24 DC amikacin #6 Monitor CBC. Monitor BMP. Monitor cultures (blood, Sp ) Airborne. Contact plus Isolation DW RN Subjective Allergies: Coded Allergies: NO KNOWN ALLERGIES (Unverified Allergy, Unknown, 10/15/15) Subjective febrile on 30% FiO2 in ICU Objective Vital Signs Last 24 Hour Vital Signs Date Time Temp Pulse Resp B/P (MAP) Pulse Ox O2 Delivery O2 Flow Rate FiO2 02/28/20 11:19 60 16 30 02/28/20 11:00 61 16 107/39 (61) 100 02/28/20 10:00 60 16 106/54 (71) 100 02/28/20 09:00 61 14 98/60 (73) 99 02/28/20 08:49 60 16 30 02/28/20 08:00 62 02/28/20 08:00 30 02/28/20 08:00 Mechanical Ventilator 02/28/20 08:00 99.3 60 16 134/47 (76) 98 02/28/20 07:00 64 18 131/40 (70) 99 02/28/20 07:00 62 17 30 02/28/20 06:30 62 20 02/28/20 06:00 61 17 133/32 (65) 99 02/28/20 05:11 62 16 30 02/28/20 05:00 62 16 136/41 (72) 98 02/28/20 04:00 99.6 64 16 125/45 (71) 100 02/28/20 04:00 30 02/28/20 04:00 Mechanical Ventilator 02/28/20 04:00 60 02/28/20 03:44 60 16 30 02/28/20 03:00 62 16 135/51 (79) 99 02/28/20 02:00 65 17 134/53 (80) 99 02/28/20 01:51 66 18 30 02/28/20 01:00 66 15 134/43 (73) 99 02/28/20 00:00 66 02/28/20 00:00 99.3 67 15 116/47 (70) 98 02/28/20 00:00 30 02/28/20 00:00 Mechanical Ventilator 02/27/20 23:49 66 24 30 02/27/20 23:15 66 16 111/55 (73) 100 02/27/20 23:00 66 19 88/42 (57) 98 02/27/20 22:00 67 17 99/49 (66) 99 02/27/20 21:48 71 21 30 02/27/20 21:00 67 17 100/47 (64) 100 02/27/20 20:00 Mechanical Ventilator 02/27/20 20:00 99.9 60 16 113/55 (74) 100 02/27/20 20:00 30 02/27/20 20:00 60 02/27/20 19:42 60 18 30 02/27/20 19:00 61 18 134/51 (78) 100 02/27/20 18:00 100.0 60 16 136/49 (78) 100 02/27/20 17:07 60 17 30 02/27/20 17:00 60 16 115/56 (75) 100 02/27/20 16:00 60 02/27/20 16:00 Mechanical Ventilator 02/27/20 16:00 100.7 60 16 111/37 (61) 100 02/27/20 16:00 30 02/27/20 15:00 60 16 111/34 (59) 100 02/27/20 14:30 60 16 30 02/27/20 14:00 101.0 60 18 116/47 (70) 100 4/3/20 13:05 60 16 30 02/27/20 13:00 60 16 107/43 (64) 100 Height (Feet): 5 Height (Inches): 7.00 Weight (Pounds): 248 Respiratory/Chest: lungs clear Cardiovascular: regular rhythm Abdomen: soft, non tender Laboratory Tests Test 02/28/20 05:00 White Blood Count 6.0 K/UL (4.8-10.8) Red Blood Count 4.30 M/UL (4.20-5.40) Hemoglobin 10.2 G/DL (12.0-16.0) L Hematocrit 32.3 % (37.0-47.0) L Mean Corpuscular Volume 75 FL (80-99) L Mean Corpuscular Hemoglobin 23.8 PG (27.0-31.0) L Mean Corpuscular Hemoglobin Concent 31.6 G/DL (32.0-36.0) L Red Cell Distribution Width 15.1 % (11.6-14.8) H Platelet Count 239 K/UL (150-450) Mean Platelet Volume 7.6 FL (6.5-10.1) Neutrophils (%) (Auto) 56.3 % (45.0-75.0) Lymphocytes (%) (Auto) 22.8 % (20.0-45.0) Monocytes (%) (Auto) 19.4 % (1.0-10.0) H Eosinophils (%) (Auto) 1.0 % (0.0-3.0) Basophils (%) (Auto) 0.6 % (0.0-2.0) Sodium Level 140 MMOL/L (136-145) Potassium Level 4.4 MMOL/L (3.5-5.1) Chloride Level 97 MMOL/L (98-107) L Carbon Dioxide Level 33 MMOL/L (21-32) H Anion Gap 10 mmol/L (5-15) Blood Urea Nitrogen 63 mg/dL (7-18) H Creatinine 7.1 MG/DL (0.55-1.30) H Estimat Glomerular Filtration Rate 7.2 mL/min (>60) Glucose Level 101 MG/DL (74-106) Calcium Level 9.0 MG/DL (8.5-10.1) Current Medications Medications (Trade) Dose Ordered Sig/Josi Route PRN Reason Start Time Stop Time Status Last Admin Dose Admin Acetaminophen (Tylenol) 650 mg Q4H PRN GT fever 02/25/20 06:30 03/26/20 06:29 02/26/20 17:16 Albuterol/ Ipratropium (Combivent Respimat) 1 puffs Q4H PRN INH Shortness of Breath 02/25/20 06:30 03/26/20 06:29 Atorvastatin Calcium (Lipitor) 10 mg BEDTIME NG 02/25/20 21:00 05/25/20 20:59 02/27/20 20:24 Azithromycin (Zithromax) 250 mg DAILY NG 02/25/20 09:00 03/03/20 08:59 02/28/20 08:41 Epoetin Jose De Jesus (Epoetin Jose De Jesus(ESRD on dialysis)) 3,000 unit SUN-SUN-SUN SUBQ 02/25/20 21:00 05/25/20 20:59 02/27/20 20:24 Heparin Sodium (Porcine) (Heparin 5000 units/ml) 5,000 units EVERY 12 HOURS SUBQ 02/25/20 09:00 04/10/20 08:59 02/28/20 08:41 Hydralazine HCl (Apresoline) 10 mg Q4H PRN IV Blood pressure over 160 systol 02/25/20 06:30 05/25/20 06:29 Hydromorphone HCl (Dilaudid) 0.5 mg Q4H PRN IVP For Pain 02/25/20 06:30 03/03/20 06:29 Hydroxychloroquine Sulfate (Plaquenil) 200 mg BID NG 02/25/20 18:00 02/29/20 09:01 02/28/20 08:40 Insulin Aspart (NovoLOG) BEFORE MEALS AND HS SUBQ 02/20/20 12:30 05/20/20 12:29 02/28/20 05:19 Labetalol HCl (Normodyne) 20 mg Q1H PRN IV sbp more than 180mmHg 02/25/20 06:30 03/26/20 06:29 Lorazepam (Ativan 2mg/ml 1ml) 2 mg Q2H PRN IV For Anxiety 02/25/20 06:30 03/03/20 06:29 02/25/20 09:13 Ondansetron HCl (Zofran) 4 mg Q6H PRN IVP Nausea & Vomiting 02/25/20 06:30 03/26/20 06:29 Pantoprazole (Protonix) 40 mg Q12HR IVP 02/25/20 09:00 03/26/20 08:59 02/28/20 08:40 Pyridoxine HCl (Vitamin B6) 50 mg DAILY NG 02/25/20 09:00 03/26/20 08:59 02/28/20 08:40 Sevelamer Carbonate (Renvela) 800 mg Q6HR NG 02/25/20 12:00 05/25/20 11:59 02/28/20 12:04 Thiamine HCl 100 mg/Dextrose 56 ml @ 112 mls/hr Q24H IVPB 02/25/20 12:00 03/26/20 11:59 02/28/20 12:04 Vancomycin HCl (Vanco rx to dose) 1 ea DAILY PRN MISC . 02/25/20 06:30 03/26/20 06:29 Mic Long MD Feb 28, 2020 12:28
[2020-02-28] MEDS ORDERED: NS 275ml ONE (12:44)
[2020-02-28] MEDS ORDERED: Tubing IV Secondary IV ONE (12:44)
--- NOTE | 2020-02-28 13:52 | NUR ---
NURSE NOTES: Patient asleep. No signs of pain or discomfort. Stable on cardiac specialist.
--- NOTE | 2020-02-28 15:55 | NUR ---
NURSE NOTES: Turned and repositioned. Patient is comfortable laying in bed.
--- NOTE | 2020-02-28 16:26 | NUR ---
NURSE NOTES: Dr. Long at bedside assessing pt. Updated him on pt's current condition. No new orders received at this time.
--- NOTE | 2020-02-28 18:00 | NUR ---
NURSE NOTES: Pt fully cleaned after a large loose brown BM. Suctioned and oral care complete. No distress noted.
--- NOTE | 2020-02-28 18:05 | Cardiology Progress Note ---
Assessment/Plan Problem List: (1) COVID-19 virus infection (2) Acute respiratory failure (3) Morbid obesity (4) ARDS (adult respiratory distress syndrome) (5) Diabetes (6) Pacemaker Status: stable, unchanged Status Narrative Pt hemodynamically stable, COVID + w/ respiratory failure, pneumonia. On vent, maintaining sats 95-100% on 40% o2. On hydroxychloroquine and azithromycin per ID Rhythm stable - atrially paced at 60 /min Assessment/Plan Continue current meds. Monitor for arrhythmias; monitor QTc ( currently 460 ms) on hydroxychloroquine and azithromycin. Subjective ROS Limited/Unobtainable: Yes Subjective Cardiology for Dr. Reyna Events noted. Pt awake, on vent. Objective Last 24 Hour Vital Signs Date Time Temp Pulse Resp B/P (MAP) Pulse Ox O2 Delivery O2 Flow Rate FiO2 02/28/20 17:09 60 16 30 02/28/20 16:00 30 02/28/20 16:00 99.6 60 16 120/49 (72) 99 02/28/20 16:00 Mechanical Ventilator 02/28/20 15:23 60 02/28/20 15:16 60 16 30 02/28/20 15:00 61 18 101/55 (70) 100 02/28/20 14:00 60 16 110/50 (70) 100 02/28/20 13:00 62 18 30 02/28/20 13:00 62 16 104/33 (56) 100 02/28/20 12:00 99.7 61 16 90/70 (77) 99 02/28/20 12:00 Mechanical Ventilator 02/28/20 12:00 30 02/28/20 12:00 64 02/28/20 11:19 60 16 30 02/28/20 11:00 61 16 107/39 (61) 100 02/28/20 10:00 60 16 106/54 (71) 100 02/28/20 09:00 61 14 98/60 (73) 99 02/28/20 08:49 60 16 30 02/28/20 08:00 62 02/28/20 08:00 30 02/28/20 08:00 Mechanical Ventilator 02/28/20 08:00 99.3 60 16 134/47 (76) 98 02/28/20 07:00 64 18 131/40 (70) 99 02/28/20 07:00 62 17 30 4/4/20 06:30 62 20 02/28/20 06:00 61 17 133/32 (65) 99 02/28/20 05:11 62 16 30 02/28/20 05:00 62 16 136/41 (72) 98 02/28/20 04:00 99.6 64 16 125/45 (71) 100 02/28/20 04:00 30 02/28/20 04:00 Mechanical Ventilator 02/28/20 04:00 60 02/28/20 03:44 60 16 30 02/28/20 03:00 62 16 135/51 (79) 99 02/28/20 02:00 65 17 134/53 (80) 99 02/28/20 01:51 66 18 30 02/28/20 01:00 66 15 134/43 (73) 99 02/28/20 00:00 66 02/28/20 00:00 99.3 67 15 116/47 (70) 98 02/28/20 00:00 30 02/28/20 00:00 Mechanical Ventilator 02/27/20 23:49 66 24 30 02/27/20 23:15 66 16 111/55 (73) 100 02/27/20 23:00 66 19 88/42 (57) 98 02/27/20 22:00 67 17 99/49 (66) 99 02/27/20 21:48 71 21 30 02/27/20 21:00 67 17 100/47 (64) 100 02/27/20 20:00 Mechanical Ventilator 02/27/20 20:00 99.9 60 16 113/55 (74) 100 02/27/20 20:00 30 02/27/20 20:00 60 02/27/20 19:42 60 18 30 02/27/20 19:00 61 18 134/51 (78) 100 02/27/20 18:00 100.0 60 16 136/49 (78) 100 General Appearance: WD/WN, on vent Rhythm: NSR, other - atrially paced Intake and Output 02/27/20 02/28/20 19:00 07:00 Intake Total 506 ml 385 ml Output Total 90 ml 3000 ml Balance 416 ml -2615 ml IV Total 56 ml Tube Feeding 350 ml 385 ml Other 100 ml Output Urine Total 30 ml 0 ml Hemodialysis UF 3000 ml Other 60 ml # Bowel Movements 1 1 Laboratory Tests Test 02/28/20 05:00 White Blood Count 6.0 K/UL (4.8-10.8) Red Blood Count 4.30 M/UL (4.20-5.40) Hemoglobin 10.2 G/DL (12.0-16.0) L Hematocrit 32.3 % (37.0-47.0) L Mean Corpuscular Volume 75 FL (80-99) L Mean Corpuscular Hemoglobin 23.8 PG (27.0-31.0) L Mean Corpuscular Hemoglobin Concent 31.6 G/DL (32.0-36.0) L Red Cell Distribution Width 15.1 % (11.6-14.8) H Platelet Count 239 K/UL (150-450) Mean Platelet Volume 7.6 FL (6.5-10.1) Neutrophils (%) (Auto) 56.3 % (45.0-75.0) Lymphocytes (%) (Auto) 22.8 % (20.0-45.0) Monocytes (%) (Auto) 19.4 % (1.0-10.0) H Eosinophils (%) (Auto) 1.0 % (0.0-3.0) Basophils (%) (Auto) 0.6 % (0.0-2.0) Sodium Level 140 MMOL/L (136-145) Potassium Level 4.4 MMOL/L (3.5-5.1) Chloride Level 97 MMOL/L (98-107) L Carbon Dioxide Level 33 MMOL/L (21-32) H Anion Gap 10 mmol/L (5-15) Blood Urea Nitrogen 63 mg/dL (7-18) H Creatinine 7.1 MG/DL (0.55-1.30) H Estimat Glomerular Filtration Rate 7.2 mL/min (>60) Glucose Level 101 MG/DL (74-106) Calcium Level 9.0 MG/DL (8.5-10.1) Objective exam deferred due to COVID 19 isolation Janay Amos MD Feb 28, 2020 18:05
--- NOTE | 2020-02-28 19:11 | NUR ---
HAND-OFF: Report given to Sugar Landrum RN.
--- NOTE | 2020-02-28 19:12 | NUR ---
NURSE NOTES: Endorsement received from NATHALIA Morejon. Asleep at this time. Patient orally intubated with ETT 7.5, 25 lipline. AC 16, 600, 30%. OGT present, on Nepro 35 ml/hr. With right upper arm AV shunt. Dressing dry and intact. Right arm precaution. Left wrist g22, left upper arm g22. Tyler catheter in place, connected to urimeter. On cooling blanket. Bilateral soft wrists restraints for attempting to pull out tubings. Head of bed elevated. Bed locked and in low position. Bed alarm on. Call light within reach. On Airborne and contact precautions.
--- NOTE | 2020-02-28 21:00 | NUR ---
NURSE NOTES: Due medications given. Secretions suctioned. Tolerating feeding, no residual. Noted with bowel sounds when air is introduced into the OGT.
[2020-02-29] VITALS (26 sets, daily range): BP systolic 94–197; BP diastolic 33–100
--- NOTE | 2020-02-29 | NUR ---
NURSE NOTES: Patient asleep. No signs of pain or discomfort. Afebrile. A paced on the monitor. Head of bed kept elevated. Will continue to monitor.
[2020-02-29] MEDS: Renvela 800mg Pkt NG SCH ×4 (00:09→17:01)
--- NOTE | 2020-02-29 02:00 | NUR ---
NURSE NOTES: Secretions suctioned. Vital signs stable.
--- NOTE | 2020-02-29 04:00 | NUR ---
NURSE NOTES: Bed bath, oral care, change of linens done. Patient awake and alert. Follows commands and able to turn side to side. Patient held her thumb up after bed bath.
[2020-02-29] MEDS: NovoLOG Insulin Flexpen SUBQ SCH ×4 (05:25→21:00)
--- NOTE | 2020-02-29 06:00 | NUR ---
NURSE NOTES: Patient seen and examined by Dr. Murillo, no new order at this time.
--- NOTE | 2020-02-29 06:23 | Pulmonolgy Critical Care Note ---
Critical Care - Asmt/Plan Problems: (1) COVID-19 virus infection (2) Acute respiratory failure (3) Sepsis (4) ESRD (end stage renal disease) on dialysis (5) Accelerated hypertension (6) Decubital ulcer (7) Pacemaker (8) Diabetes (9) Blindness of both eyes (10) Morbid obesity (11) HTN (hypertension) Respiratory: monitor respiratory rate, adjust FIO2, CXR Cardiac: continue pressors, continue to monitor HR/BP Renal: F/U I&O, keep IV fluid Infectious Disease: check cultures Gastrointestinal: continue feedings/current rate Endocrine: monitor blood sugar Hematologic: monitor H/H, transfuse if hgb<8.5 Neurologic: PRN Ativan, PRN Morphine, keep patient comfortable Affect: PRN ativan Disposition: keep in ICU Notes Reviewed: director of instrumental music, cardio, 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, consultants, case fitterinternational account manager - Objective Last 24 Hour Vital Signs Date Time Temp Pulse Resp B/P (MAP) Pulse Ox O2 Delivery O2 Flow Rate FiO2 02/29/20 05:20 64 17 30 02/29/20 05:00 69 18 146/62 (90) 100 02/29/20 04:00 30 02/29/20 04:00 71 02/29/20 04:00 98.7 68 18 158/63 (94) 100 02/29/20 04:00 Mechanical Ventilator 02/29/20 03:00 70 16 145/49 (81) 89 02/29/20 02:55 78 24 30 02/29/20 02:00 66 18 111/56 (74) 100 02/29/20 01:07 69 22 30 02/29/20 01:00 67 17 101/43 (62) 100 02/29/20 00:00 30 02/29/20 00:00 62 02/29/20 00:00 Mechanical Ventilator 02/29/20 00:00 98.4 62 15 117/53 (74) 98 02/28/20 23:10 60 16 30 02/28/20 23:00 61 16 116/30 (58) 98 02/28/20 22:00 61 17 128/50 (76) 98 02/28/20 21:08 64 16 30 02/28/20 21:00 60 16 120/50 (73) 99 02/28/20 20:00 Mechanical Ventilator 02/28/20 20:00 30 02/28/20 20:00 62 02/28/20 20:00 98.7 60 16 132/49 (76) 100 02/28/20 19:30 60 16 30 02/28/20 19:00 61 16 104/45 (64) 100 02/28/20 18:00 63 19 123/56 (78) 99 02/28/20 17:09 60 16 30 02/28/20 17:00 60 16 117/46 (69) 99 02/28/20 16:00 30 02/28/20 16:00 99.6 60 16 120/49 (72) 99 02/28/20 16:00 Mechanical Ventilator 02/28/20 15:23 60 02/28/20 15:16 60 16 30 02/28/20 15:00 61 18 101/55 (70) 100 02/28/20 14:00 60 16 110/50 (70) 100 02/28/20 13:00 62 18 30 02/28/20 13:00 62 16 104/33 (56) 100 02/28/20 12:00 99.7 61 16 90/70 (77) 99 02/28/20 12:00 Mechanical Ventilator 02/28/20 12:00 30 02/28/20 12:00 64 02/28/20 11:19 60 16 30 02/28/20 11:00 61 16 107/39 (61) 100 02/28/20 10:00 60 16 106/54 (71) 100 02/28/20 09:00 61 14 98/60 (73) 99 02/28/20 08:49 60 16 30 02/28/20 08:00 62 02/28/20 08:00 30 02/28/20 08:00 Mechanical Ventilator 02/28/20 08:00 99.3 60 16 134/47 (76) 98 02/28/20 07:00 64 18 131/40 (70) 99 02/28/20 07:00 62 17 30 02/28/20 06:30 62 20 Status: awake Condition: critical HEENT: normocephalic Neck: full ROM Lungs: rales, rhonchi Heart: HR/BP stable Abdomen: soft, non-tender Extremities: no C/C/E Accucheck: 101 Critical Care - Subjective ROS Limited/Unobtainable: Yes Interval Events: looks comfortable Condition: critical EKG Rhythm: Sinus Rhythm FI02: 30 Vent Support Breath Rate: 16 Vent Support Mode: AC Vent Tidal Volume: 600 Sputum Amount: Small PEEP: 0.0 PIP: 22 Tube Feeding Amount: 35 I&O: Intake and Output 02/28/20 02/29/20 19:00 07:00 Intake Total 756 ml 585 ml Output Total 32 ml 0 ml Balance 724 ml 585 ml IV Total 56 ml Tube Feeding 420 ml 385 ml Other 280 ml 200 ml Output Urine Total 32 ml 0 ml # Bowel Movements 1 ET-Tube: 7.5 ET Position: 25 Meghana Murillo MD Feb 29, 2020 06:23
--- NOTE | 2020-02-29 06:30 | NUR ---
NURSE NOTES: SBP 170 mmHg, PRN hydralazine given. Blood sugar within normal limits.
--- NOTE | 2020-02-29 07:00 | NUR ---
HAND-OFF: Report given to NATHALIA Hsieh.
[2020-02-29 07:08] LABS: BASOPHILS % (AUTO) 0.4 % (0.0-2.0); EOSINOPHILS % (AUTO) 1.7 % (0.0-3.0); HEMATOCRIT 32.6 % (37.0-47.0); HEMOGLOBIN 10.2 G/DL (12.0-16.0); LYMPHOCYTES % (AUTO) 25.5 % (20.0-45.0); MEAN CORPUSCULAR VOLUME 76 FL (80-99); NEUTROPHILS % (AUTO) 55.4 % (45.0-75.0); PLATELET COUNT 286 K/UL (150-450); RED CELL DISTRIBUTION WIDTH 15.4 % (11.6-14.8); WHITE BLOOD COUNT 6.5 K/UL (4.8-10.8)
--- NOTE | 2020-02-29 07:24 | NUR ---
NURSE NOTES: Received report from NATHALIA Wooten. Observed patient from outside the room, in bed, appears to be sleeping with eyes closed. Patient is orally intubated with vent settings as follows: AC 16, TV 600, FiO2 30%, no PEEP. Patient is tolerating vent settings well, saturating 100%. monitoring tech shows A-paced with HR of 66. Patient has OGT with TF infusing Nepro at 35ml/hr. Patient's HOB is elevated. Patient has Tyler catheter in place, draining to gravity with scant amount of urine output. Bilateral soft wrist restraints in place. Left wrist IV 22g intact, patent and asymptomatic. Rectal temperature noted to be 99.1, cooling blanket remains on. Safety precautions in place, bed locked, alarmed and in lowest position, side rails up x3. Patient remains on airborne precautions. Will continue to monitor patient.
[2020-02-29 07:44] LABS: ALANINE AMINOTRANSFERASE 27 U/L (12-78); ALBUMIN 3.1 G/DL (3.4-5.0); ALBUMIN/GLOBULIN RATIO 0.6 (1.0-2.7); ALKALINE PHOSPHATASE 321 U/L (46-116); ANION GAP 12 mmol/L (5-15); ASPARTATE AMINO TRANSFERASE 69 U/L (15-37); BILIRUBIN,TOTAL 0.6 MG/DL (0.2-1.0); BLOOD UREA NITROGEN 80 mg/dL (7-18); CALCIUM 8.8 MG/DL (8.5-10.1); CARBON DIOXIDE 32 MMOL/L (21-32); CHLORIDE 95 MMOL/L (98-107); CREATININE 8.6 MG/DL (0.55-1.30); POTASSIUM 4.7 MMOL/L (3.5-5.1); SODIUM 139 MMOL/L (136-145)
[2020-02-29 08:13] LABS: PHOSPHORUS 5.7 MG/DL (2.5-4.9)
[2020-02-29] MEDS: Pantoprazole Inj IVP SCH ×2 (09:05→20:22)
[2020-02-29] MEDS: Pyridoxine 50mg tab NG SCH (09:05)
[2020-02-29] MEDS: Azithromycin 250mg tab NG SCH (09:05)
[2020-02-29] MEDS: Heparin 5000 units/ml inj SUBQ SCH ×2 (09:06→20:24)
--- NOTE | 2020-02-29 09:12 | General Progress Note ---
Assessment/Plan Problem List: (1) Obesity (BMI 30-39.9) ICD Codes: E66.9 - Obesity, unspecified SNOMED: 765842060, 305060218 (2) COVID-19 virus infection ICD Codes: U07.1 - COVID-19 SNOMED: 239778406 (3) Acute respiratory failure ICD Codes: J96.00 - Acute respiratory failure, unspecified whether with hypoxia or hypercapnia SNOMED: 44886452 (4) Blindness of both eyes ICD Codes: H54.0 - Blindness SNOMED: 339707274 (5) ESRD (end stage renal disease) on dialysis ICD Codes: N18.6 - End stage renal disease; Z99.2 - Dependence on renal dialysis SNOMED: 127722054 (6) Anemia ICD Codes: D64.9 - Anemia, unspecified SNOMED: 308566387 (7) Diabetes ICD Codes: E11.9 - Type 2 diabetes mellitus without complications SNOMED: 63241777 (8) AMS (altered mental status) ICD Codes: R41.82 - Altered mental status, unspecified SNOMED: 933801379 Status: unchanged Assessment/Plan: vent abx dialysis cbc bmp am Subjective Constitutional: Reports: weakness Allergies: Coded Allergies: NO KNOWN ALLERGIES (Unverified Allergy, Unknown, 10/15/15) All Systems: reviewed and negative except above Subjective intubated sedated ng in icu Objective Last 24 Hour Vital Signs Date Time Temp Pulse Resp B/P (MAP) Pulse Ox O2 Delivery O2 Flow Rate FiO2 02/29/20 09:09 67 16 30 02/29/20 07:30 65 16 30 02/29/20 07:00 69 19 102/66 (78) 100 02/29/20 06:41 68 18 102/88 (93) 100 02/29/20 06:30 65 19 02/29/20 06:28 170/63 02/29/20 06:22 66 16 170/63 (98) 100 02/29/20 06:00 70 21 184/79 (114) 100 02/29/20 05:20 64 17 30 02/29/20 05:00 69 18 146/62 (90) 100 02/29/20 04:00 30 02/29/20 04:00 71 02/29/20 04:00 98.7 68 18 158/63 (94) 100 02/29/20 04:00 Mechanical Ventilator 02/29/20 03:00 70 16 145/49 (81) 89 02/29/20 02:55 78 24 30 02/29/20 02:00 66 18 111/56 (74) 100 02/29/20 01:07 69 22 30 02/29/20 01:00 67 17 101/43 (62) 100 02/29/20 00:00 30 02/29/20 00:00 62 02/29/20 00:00 Mechanical Ventilator 02/29/20 00:00 98.4 62 15 117/53 (74) 98 02/28/20 23:10 60 16 30 02/28/20 23:00 61 16 116/30 (58) 98 02/28/20 22:00 61 17 128/50 (76) 98 02/28/20 21:08 64 16 30 02/28/20 21:00 60 16 120/50 (73) 99 02/28/20 20:00 Mechanical Ventilator 02/28/20 20:00 30 02/28/20 20:00 62 02/28/20 20:00 98.7 60 16 132/49 (76) 100 02/28/20 19:30 60 16 30 02/28/20 19:00 61 16 104/45 (64) 100 02/28/20 18:00 63 19 123/56 (78) 99 02/28/20 17:09 60 16 30 02/28/20 17:00 60 16 117/46 (69) 99 02/28/20 16:00 30 02/28/20 16:00 99.6 60 16 120/49 (72) 99 02/28/20 16:00 Mechanical Ventilator 02/28/20 15:23 60 02/28/20 15:16 60 16 30 02/28/20 15:00 61 18 101/55 (70) 100 02/28/20 14:00 60 16 110/50 (70) 100 02/28/20 13:00 62 18 30 02/28/20 13:00 62 16 104/33 (56) 100 02/28/20 12:00 99.7 61 16 90/70 (77) 99 02/28/20 12:00 Mechanical Ventilator 02/28/20 12:00 30 02/28/20 12:00 64 02/28/20 11:19 60 16 30 02/28/20 11:00 61 16 107/39 (61) 100 02/28/20 10:00 60 16 106/54 (71) 100 Intake and Output 02/28/20 02/29/20 19:00 07:00 Intake Total 756 ml 620 ml Output Total 32 ml 0 ml Balance 724 ml 620 ml IV Total 56 ml Tube Feeding 420 ml 420 ml Other 280 ml 200 ml Output Urine Total 32 ml 0 ml # Bowel Movements 1 Laboratory Tests 02/29/20 05:00: White Blood Count 6.5, Red Blood Count 4.30, Hemoglobin 10.2L, Hematocrit 32.6L , Mean Corpuscular Volume 76L, Mean Corpuscular Hemoglobin 23.8L, Mean Corpuscular Hemoglobin Concent 31.4L, Red Cell Distribution Width 15.4H, Platelet Count 286, Mean Platelet Volume 7.2, Neutrophils (%) (Auto) 55.4, Lymphocytes (%) (Auto) 25.5, Monocytes (%) (Auto) 17.0H, Eosinophils (%) (Auto) 1.7, Basophils (%) (Auto) 0.4, Sodium Level 139, Potassium Level 4.7, Chloride Level 95L, Carbon Dioxide Level 32, Anion Gap 12, Blood Urea Nitrogen 80H, Creatinine 8.6H, Estimat Glomerular Filtration Rate 5.7, Glucose Level 91, Uric Acid 4.6, Calcium Level 8.8, Phosphorus Level 5.7H, Magnesium Level 2.9H, Total Bilirubin 0.6, Aspartate Amino Transf (AST/SGOT) 69H, Alanine Aminotransferase ( ALT/SGPT) 27, Alkaline Phosphatase 321H, C-Reactive Protein, Quantitative 6.3H, Pro-B-Type Natriuretic Peptide 50769N, Total Protein 7.9, Albumin 3.1L, Globulin 4.8, Albumin/Globulin Ratio 0.6L, Random Vancomycin Level 18.8 Height (Feet): 5 Height (Inches): 7.00 Weight (Pounds): 248 General Appearance: lethargic EENT: normal ENT inspection Neck: normal alignment Cardiovascular: normal rate, regular rhythm Extremities: normal inspection Skin: normal pigmentation, warm/dry Roderick Henningg Feb 29, 2020 09:12
--- NOTE | 2020-02-29 09:32 | NUR ---
NURSE NOTES: Patient's temperature at 98.7 rectally per cooling blanket machine; turned off at this time. Patient remains orally intubated ETT 7.5, at 25cm left side of lip line. Provided oral care and suctioned patient with small amount of thin, white sputum. Scheduled medications given. OGT in place, auscultated placement prior to giving medications. Nepro at 35ml/hr infusing. Patient's HOB elevated. Left wrist 22g IV intact, patent, asymptomatic. Repositioned and turned patient. Tyler catheter in place. Left clean and dry at this time. Restraints care provided. Will continue to monitor patient.
--- NOTE | 2020-02-29 10:07 | Nephrology Progress Note ---
Assessment/Plan Problem List: (1) Acute respiratory failure (2) ESRD (end stage renal disease) on dialysis (3) UTI (urinary tract infection) (4) Patient is Alevism (5) Pacemaker (6) Diabetes (7) Obesity (BMI 30-39.9) Assessment ARDS (adult respiratory distress syndrome) Fever Sepsis UTI (urinary tract infection) Respiratory failure, intubated on ventilator Thrombocytopenia Lymphopenia End stage renal disease on dialysis. Has a right upper arm dialysis fistula as Acces . Getting dialysis Sunday. morbid obesity Anemia / Jehova's witness CAD previous stent HTN- hypertensive urgency upon arrival to [facility]. s/p AVG DM 2 bilateral eye blindness h/o CHF Pacemaker Plan Patient positive for Covid 19 Per ID and pulmonary, ventilator adjustment Last dialyzed February 26, next dialysis March 01 EPO, thiamin and b6 Phos binders NGT feeding per consultants Remains full code at this time Subjective ROS Limited/Unobtainable: Yes Objective Objective Last 24 Hour Vital Signs Date Time Temp Pulse Resp B/P (MAP) Pulse Ox O2 Delivery O2 Flow Rate FiO2 02/29/20 09:09 67 16 30 02/29/20 07:30 65 16 30 02/29/20 07:00 69 19 102/66 (78) 100 02/29/20 06:41 68 18 102/88 (93) 100 02/29/20 06:30 65 19 02/29/20 06:28 170/63 02/29/20 06:22 66 16 170/63 (98) 100 02/29/20 06:00 70 21 184/79 (114) 100 02/29/20 05:20 64 17 30 02/29/20 05:00 69 18 146/62 (90) 100 02/29/20 04:00 30 02/29/20 04:00 71 02/29/20 04:00 98.7 68 18 158/63 (94) 100 02/29/20 04:00 Mechanical Ventilator 02/29/20 03:00 70 16 145/49 (81) 89 02/29/20 02:55 78 24 30 02/29/20 02:00 66 18 111/56 (74) 100 02/29/20 01:07 69 22 30 02/29/20 01:00 67 17 101/43 (62) 100 02/29/20 00:00 30 4/5/20 00:00 62 02/29/20 00:00 Mechanical Ventilator 02/29/20 00:00 98.4 62 15 117/53 (74) 98 02/28/20 23:10 60 16 30 02/28/20 23:00 61 16 116/30 (58) 98 02/28/20 22:00 61 17 128/50 (76) 98 02/28/20 21:08 64 16 30 02/28/20 21:00 60 16 120/50 (73) 99 02/28/20 20:00 Mechanical Ventilator 02/28/20 20:00 30 02/28/20 20:00 62 02/28/20 20:00 98.7 60 16 132/49 (76) 100 02/28/20 19:30 60 16 30 02/28/20 19:00 61 16 104/45 (64) 100 02/28/20 18:00 63 19 123/56 (78) 99 02/28/20 17:09 60 16 30 02/28/20 17:00 60 16 117/46 (69) 99 02/28/20 16:00 30 02/28/20 16:00 99.6 60 16 120/49 (72) 99 02/28/20 16:00 Mechanical Ventilator 02/28/20 15:23 60 02/28/20 15:16 60 16 30 02/28/20 15:00 61 18 101/55 (70) 100 02/28/20 14:00 60 16 110/50 (70) 100 02/28/20 13:00 62 18 30 02/28/20 13:00 62 16 104/33 (56) 100 02/28/20 12:00 99.7 61 16 90/70 (77) 99 02/28/20 12:00 Mechanical Ventilator 02/28/20 12:00 30 02/28/20 12:00 64 02/28/20 11:19 60 16 30 02/28/20 11:00 61 16 107/39 (61) 100 Intake and Output 02/28/20 02/29/20 19:00 07:00 Intake Total 756 ml 620 ml Output Total 32 ml 0 ml Balance 724 ml 620 ml IV Total 56 ml Tube Feeding 420 ml 420 ml Other 280 ml 200 ml Output Urine Total 32 ml 0 ml # Bowel Movements 1 Laboratory Tests 02/29/20 05:00: White Blood Count 6.5, Red Blood Count 4.30, Hemoglobin 10.2L, Hematocrit 32.6L , Mean Corpuscular Volume 76L, Mean Corpuscular Hemoglobin 23.8L, Mean Corpuscular Hemoglobin Concent 31.4L, Red Cell Distribution Width 15.4H, Platelet Count 286, Mean Platelet Volume 7.2, Neutrophils (%) (Auto) 55.4, Lymphocytes (%) (Auto) 25.5, Monocytes (%) (Auto) 17.0H, Eosinophils (%) (Auto) 1.7, Basophils (%) (Auto) 0.4, Sodium Level 139, Potassium Level 4.7, Chloride Level 95L, Carbon Dioxide Level 32, Anion Gap 12, Blood Urea Nitrogen 80H, Creatinine 8.6H, Estimat Glomerular Filtration Rate 5.7, Glucose Level 91, Uric Acid 4.6, Calcium Level 8.8, Phosphorus Level 5.7H, Magnesium Level 2.9H, Total Bilirubin 0.6, Aspartate Amino Transf (AST/SGOT) 69H, Alanine Aminotransferase ( ALT/SGPT) 27, Alkaline Phosphatase 321H, C-Reactive Protein, Quantitative 6.3H, Pro-B-Type Natriuretic Peptide 00921H, Total Protein 7.9, Albumin 3.1L, Globulin 4.8, Albumin/Globulin Ratio 0.6L, Random Vancomycin Level 18.8 Height (Feet): 5 Height (Inches): 7.00 Weight (Pounds): 248 General Appearance: no apparent distress EENT: other - Remains intubated and vented Cardiovascular: normal rate Respiratory/Chest: decreased breath sounds Bryan Hunter MD Feb 29, 2020 10:07
[2020-02-29] MEDS: Thiamine HCl 100 MG in D5W 55 ML IVPB SCH (11:30)
--- NOTE | 2020-02-29 12:06 | NUR ---
NURSE NOTES: Allegra-care provided, BM noted. Moderate amount of soft, brown stool noted. Linens replaced. Patient remains afebrile at this time, 98.4 rectally, per cooling machine. Oral care provided. Suctioned patient orally and via Et tube. Scheduled medications given. Restraints released, skin, pulses, and circulation checked; reapplied after care. Safety precautions in place. No s/s of pain/discomfort at this time. Will continue to monitor.
--- NOTE | 2020-02-29 14:54 | NUR ---
NURSE NOTES: Patient tolerating vent settings. No acute distress noted. RT at bedside for assessment/ETT care/suctioning. Patient afebrile; 98.4F per rectal probe. VSS. Bilateral wrist restraints remains on. Safety precautions in place. Will continue to monitor.
--- NOTE | 2020-02-29 16:15 | NUR ---
NURSE NOTES: No s/s of pain/distress at this time. Bilateral soft wrist restraints on to avoid self extubation. Patient is tolerating vent settings and TF. HOB remains elevated at 30 degrees. Safety precautions in place. Will continue to monitor.
--- NOTE | 2020-02-29 18:00 | NUR ---
NURSE NOTES: Bed bath given, linens changed, and placed patient in clean gown. No BM noted at this time. Patient tolerating TF; resumed after bed bath. HOB placed elevated. Restraints care provided. RT present at bedside, suctioned patient via ETT. Left patient clean and dry at this time. VSS, patient remains afebrile. Safety precautions in place. No s/s of pain/discomfort. Will continue to monitor.
--- NOTE | 2020-02-29 18:03 | NUR ---
NURSE NOTES: Hydralazine given at 1703 for BP 180/53. BP 1 hour after: 127/79. Will continue to monitor.
--- NOTE | 2020-02-29 19:00 | NUR ---
HAND-OFF: Report given to NATHALIA Wooten.
--- NOTE | 2020-02-29 19:00 | NUR ---
NURSE NOTES: Endorsement received from NATHALIA Landrum. A paced on the monitor. 100% saturation. Orally intubated with ETT 7.5, 25 lipline. AC 16, 600, 30%. OGT present, on Nepro 35 ml/hr. With right upper arm AV shunt. Dressing dry and intact. Right arm precaution. Left wrist g22, left upper arm g22. Tyler catheter in place, draining to urimeter. Bilateral soft wrists restraints for attempting to pull out tubings. Head of bed elevated. Bed locked and in low position. Bed alarm on. Call light within reach. On airborne and contact precautions.
--- NOTE | 2020-02-29 19:38 | Cardiology Progress Note ---
Assessment/Plan Problem List: (1) COVID-19 virus infection (2) Acute respiratory failure (3) Morbid obesity (4) ARDS (adult respiratory distress syndrome) (5) Diabetes (6) Pacemaker (7) Anemia in chronic kidney disease (8) ESRD (end stage renal disease) on dialysis Status: stable, unchanged Status Narrative Pt w/ COVID 19 infection, pneumonia w/respiratory failure, on vent, with Fi02 being weaned. On vent, maintaining sats 95-100% on 30% o2. On hydroxychloroquine and azithromycin per ID- completed 5 day course. Rhythm stable - atrially paced at 60 /min w conduction, QT 480 ms (telemetry). No ventricular arrhythmias noted Hypertensive Assessment/Plan Continue current meds. She is on hydralazine and labetalol prn. Would consider bid dosing of labetalol. Continue HD per Dr. Hunter Weaning from vent as per pulm F/u CXR, labs in am Subjective ROS Limited/Unobtainable: Yes Subjective Cardiology for Dr. Reyna Events noted. Pt sedated, on vent Objective Last 24 Hour Vital Signs Date Time Temp Pulse Resp B/P (MAP) Pulse Ox O2 Delivery O2 Flow Rate FiO2 02/29/20 18:00 69 17 127/79 (95) 100 02/29/20 17:25 69 24 30 02/29/20 17:03 180/53 02/29/20 17:00 64 17 179/54 (95) 100 02/29/20 16:00 98.5 63 18 197/51 (99) 100 02/29/20 16:00 64 02/29/20 16:00 Mechanical Ventilator 02/29/20 16:00 30 02/29/20 15:00 63 17 161/49 (86) 100 02/29/20 14:49 63 16 30 02/29/20 14:00 68 17 185/57 (99) 99 02/29/20 13:16 63 16 30 02/29/20 13:00 64 17 151/74 (99) 100 02/29/20 12:00 98.4 67 17 119/100 (106) 99 02/29/20 12:00 98.4 02/29/20 12:00 Mechanical Ventilator 02/29/20 12:00 62 02/29/20 12:00 30 02/29/20 11:28 62 19 30 02/29/20 11:00 64 16 160/47 (84) 100 02/29/20 10:00 67 18 164/43 (83) 100 02/29/20 09:09 67 16 30 02/29/20 09:00 98.6 63 17 94/70 (78) 100 02/29/20 08:00 30 02/29/20 08:00 69 02/29/20 08:00 70 21 187/33 (84) 100 02/29/20 08:00 Mechanical Ventilator 02/29/20 07:30 65 16 30 02/29/20 07:00 69 19 102/66 (78) 100 02/29/20 06:41 68 18 102/88 (93) 100 02/29/20 06:30 65 19 02/29/20 06:28 170/63 02/29/20 06:22 66 16 170/63 (98) 100 02/29/20 06:00 70 21 184/79 (114) 100 02/29/20 05:20 64 17 30 02/29/20 05:00 69 18 146/62 (90) 100 02/29/20 04:00 30 02/29/20 04:00 71 02/29/20 04:00 98.7 68 18 158/63 (94) 100 02/29/20 04:00 Mechanical Ventilator 02/29/20 03:00 70 16 145/49 (81) 89 02/29/20 02:55 78 24 30 02/29/20 02:00 66 18 111/56 (74) 100 02/29/20 01:07 69 22 30 02/29/20 01:00 67 17 101/43 (62) 100 02/29/20 00:00 30 02/29/20 00:00 62 02/29/20 00:00 Mechanical Ventilator 02/29/20 00:00 98.4 62 15 117/53 (74) 98 02/28/20 23:10 60 16 30 02/28/20 23:00 61 16 116/30 (58) 98 02/28/20 22:00 61 17 128/50 (76) 98 02/28/20 21:08 64 16 30 02/28/20 21:00 60 16 120/50 (73) 99 02/28/20 20:00 Mechanical Ventilator 4/4/20 20:00 30 02/28/20 20:00 62 02/28/20 20:00 98.7 60 16 132/49 (76) 100 02/28/20 19:30 60 16 30 General Appearance: on vent, other - sedated EENT: other - et tube in place Neck: no JVD Rhythm: NSR Cardiovascular: normal rate, regular rhythm, no gallop/murmur Respiratory/Chest: other - fairly clear anteriorly Abdomen: non tender, soft, no mass Extremities: no swelling, other - R upper extremity AV fistula Intake and Output 02/28/20 02/29/20 19:00 07:00 Intake Total 756 ml 620 ml Output Total 32 ml 0 ml Balance 724 ml 620 ml IV Total 56 ml Tube Feeding 420 ml 420 ml Other 280 ml 200 ml Output Urine Total 32 ml 0 ml # Bowel Movements 1 Laboratory Tests Test 02/29/20 05:00 White Blood Count 6.5 K/UL (4.8-10.8) Red Blood Count 4.30 M/UL (4.20-5.40) Hemoglobin 10.2 G/DL (12.0-16.0) L Hematocrit 32.6 % (37.0-47.0) L Mean Corpuscular Volume 76 FL (80-99) L Mean Corpuscular Hemoglobin 23.8 PG (27.0-31.0) L Mean Corpuscular Hemoglobin Concent 31.4 G/DL (32.0-36.0) L Red Cell Distribution Width 15.4 % (11.6-14.8) H Platelet Count 286 K/UL (150-450) Mean Platelet Volume 7.2 FL (6.5-10.1) Neutrophils (%) (Auto) 55.4 % (45.0-75.0) Lymphocytes (%) (Auto) 25.5 % (20.0-45.0) Monocytes (%) (Auto) 17.0 % (1.0-10.0) H Eosinophils (%) (Auto) 1.7 % (0.0-3.0) Basophils (%) (Auto) 0.4 % (0.0-2.0) Sodium Level 139 MMOL/L (136-145) Potassium Level 4.7 MMOL/L (3.5-5.1) Chloride Level 95 MMOL/L (98-107) L Carbon Dioxide Level 32 MMOL/L (21-32) Anion Gap 12 mmol/L (5-15) Blood Urea Nitrogen 80 mg/dL (7-18) H Creatinine 8.6 MG/DL (0.55-1.30) H Estimat Glomerular Filtration Rate 5.7 mL/min (>60) Glucose Level 91 MG/DL (74-106) Uric Acid 4.6 MG/DL (2.6-7.2) Calcium Level 8.8 MG/DL (8.5-10.1) Phosphorus Level 5.7 MG/DL (2.5-4.9) H Magnesium Level 2.9 MG/DL (1.8-2.4) H Total Bilirubin 0.6 MG/DL (0.2-1.0) Aspartate Amino Transf (AST/SGOT) 69 U/L (15-37) H Alanine Aminotransferase (ALT/SGPT) 27 U/L (12-78) Alkaline Phosphatase 321 U/L (46-116) H C-Reactive Protein, Quantitative 6.3 mg/dL (0.00-0.90) H Pro-B-Type Natriuretic Peptide 15123 pg/mL (0-125) H Total Protein 7.9 G/DL (6.4-8.2) Albumin 3.1 G/DL (3.4-5.0) L Globulin 4.8 g/dL Albumin/Globulin Ratio 0.6 (1.0-2.7) L Random Vancomycin Level 18.8 ug/mL Objective exam deferred due to COVID 19 isolation Janay Amos MD Feb 29, 2020 19:38
--- NOTE | 2020-02-29 20:00 | NUR ---
NURSE NOTES: Patient was seen and examined by Dr. Ramirez. With new order for chest Xray tomorrow.
--- NOTE | 2020-02-29 22:30 | NUR ---
NURSE NOTES: Patient asleep at this time. Bilateral soft wrists restraints discontinued. Will continue to monitor patient.
[2020-03-01] VITALS (26 sets, daily range): BP systolic 110–158; BP diastolic 41–69
--- NOTE | 2020-03-01 | NUR ---
NURSE NOTES: Patient awake and impulsive. Reoriented, bilateral soft wrists restraints applied. Patient tolerating feeding.
[2020-03-01] MEDS: Renvela 800mg Pkt NG SCH ×5 (00:56→23:12)
--- NOTE | 2020-03-01 02:00 | NUR ---
NURSE NOTES: Secretions suctioned, noted with thick scant secretion.
--- NOTE | 2020-03-01 04:00 | NUR ---
NURSE NOTES: Bed bath, oral care, change of linens done.
[2020-03-01 05:54] LABS: BASOPHILS % (AUTO) 0.5 % (0.0-2.0); EOSINOPHILS % (AUTO) 3.2 % (0.0-3.0); HEMATOCRIT 32.5 % (37.0-47.0); HEMOGLOBIN 10.2 G/DL (12.0-16.0); LYMPHOCYTES % (AUTO) 19.4 % (20.0-45.0); MEAN CORPUSCULAR VOLUME 75 FL (80-99); MONOCYTES % (AUTO) 15.5 % (1.0-10.0); NEUTROPHILS % (AUTO) 61.5 % (45.0-75.0); PLATELET COUNT 329 K/UL (150-450); RED BLOOD COUNT 4.35 M/UL (4.20-5.40); RED CELL DISTRIBUTION WIDTH 14.9 % (11.6-14.8); WHITE BLOOD COUNT 8.8 K/UL (4.8-10.8)
[2020-03-01 05:58] LABS: ANION GAP 16 mmol/L (5-15); BLOOD UREA NITROGEN 91 mg/dL (7-18); CALCIUM 8.9 MG/DL (8.5-10.1); CARBON DIOXIDE 27 MMOL/L (21-32); CHLORIDE 94 MMOL/L (98-107); CREATININE 9.4 MG/DL (0.55-1.30); POTASSIUM 4.9 MMOL/L (3.5-5.1); SODIUM 137 MMOL/L (136-145)
--- NOTE | 2020-03-01 06:00 | NUR ---
NURSE NOTES: Blood sugar within normal limits. Due medication given.
[2020-03-01] MEDS: NovoLOG Insulin Flexpen SUBQ SCH ×4 (06:30→23:21)
--- NOTE | 2020-03-01 07:03 | NUR ---
HAND-OFF: Report given to NR. Lucita
--- NOTE | 2020-03-01 07:06 | NUR ---
NURSE NOTES: Received report from NATHALIA Wooten. Observed patient in bed, appears to be sleeping, eyes closed at this time. Patient is orally intubated with vent settings AC 16, TV 550, FiO2 30%, no PEEP. Patient is saturating 100%, no respiratory distress noted at this time. OGT noted in place with TF Nepro infusing at 35ml/hr. Tyler catheter noted, draining to gravity. Bilateral soft wrist restraints in place to prevent self extubation. No s/s of pain/discomfort at this time. Patient remains in airborne precaution. Will continue assessment, POC, and will continue to monitor patient.
--- NOTE | 2020-03-01 08:00 | NUR ---
NURSE NOTES: Spoke with Ang Pittman, HD nurse, to confirm HD order today for patient.
[2020-03-01] MEDS: Heparin 5000 units/ml inj SUBQ SCH ×2 (08:39→22:46)
[2020-03-01] MEDS ORDERED: Lidocaine 1% Plain 30 ml INJ PRN (08:45)
[2020-03-01] MEDS ORDERED: Heparin1,000 units/500ml Premix(Conc:2 units/ml) IV PRN (08:45)
--- NOTE | 2020-03-01 08:56 | NUR ---
RD ASSESSMENT & RECOMMENDATIONS SEE CARE ACTIVITY FOR COMPLETE ASSESSMENT DAILY ESTIMATED NEEDS: Needs based on obesity, critical care, HD 11-14kg actual body wt (114kg) kcals/kg 0317-4644 total kcals 1.5-2.0kg/IBW (66kg) g protein/kg 99-132 g total protein per MD, pt on HD NUTRITION DIAGNOSIS: * Swallowing difficulty R/T respiratory status as evidenced by pt orally intubated, on NGT feeding. * Altered nutrition related lab values R/T ESRD as evidenced by elev creat (7.6), elev BNP (02654), elev phos (6.0). ENTERAL NUTRITION RECOMMENDATIONS: Nepro @ 35ml/hr x 24 hrs + Prosource 1pkt TID to provide 840ml, 1512kcal, 68 +33g prot, 611ml free water * Maintain current TF @ goal. * Add Prosource 1pkt TID to meet protein needs * HOB over 30 degrees/ water flush per MD. ADDITIONAL RECOMMENDATIONS: 1) Calibrated bedscale wt for accurate CBW- daily wts for ESRD dx 2) Add Nephrovite x 1 3) Monitor BGs closely, for hypoglycemia : h/o frequent hypoglycemia during prev admissions 4) Consider phos binders for consistently elevated phos level -> now added (02/24) .
[2020-03-01] MEDS: Pyridoxine 50mg tab NG SCH (09:15)
[2020-03-01] MEDS: Pantoprazole Inj IVP SCH ×2 (09:15→22:44)
--- NOTE | 2020-03-01 09:21 | Infectious Diseases Prog Note ---
Assessment/Plan Assessment/Plan ASSESSMENT: The patient is a 64-year-old female with Confirmed COVID-19. SARS-CoV PCR positive. Pneumonia Fever, fluctuating No leukocytosis -02/20 CXR: Mild pulmonary vascular congestion with subtle bilateral haziness , not significantly changed.Possible tiny pleural effusions. Cardiomegaly. -Bcx ngtd -sp cx normal gui Less likely UTI u/a wbc tnct, nit +, leuk +3; ucx cindy(colonizer) Hx of positive blood culture CONS ,persistent 02/04 BCx: CoNS 01/30 Bc: (1/2)CoNS and Citrobacter 01/27 , 02/01 Bc: CoNS - (outside facility, # of the +ve cultures are not clear) A 2D echo from outside facility did not show any evidence of vegetation as per Carido pt is high risk for CLAY: ( last admission ) Diabetes. CHF. ESRD. Hypertension. Obesity. PLAN: continue the patient on vancomycin, day # ? / ( will Rx for probable SBE) / SP plaquenil+azithromycin #5 / SP Ertapenem #8 02/24 DC amikacin #6 Monitor CBC. Monitor BMP. Monitor cultures (blood, Sp ) Airborne. Contact plus Isolation DW RN Subjective Allergies: Coded Allergies: NO KNOWN ALLERGIES (Unverified Allergy, Unknown, 10/15/15) Subjective Spiked fever 100.8 FiO2 30% No leukocytosis awake and moving extremities Objective Vital Signs Last 24 Hour Vital Signs Date Time Temp Pulse Resp B/P (MAP) Pulse Ox O2 Delivery O2 Flow Rate FiO2 03/01/20 08:58 61 16 100 Mechanical Ventilator 30 03/01/20 08:00 30 03/01/20 08:00 61 16 140/56 (84) 99 03/01/20 08:00 Mechanical Ventilator 03/01/20 07:16 61 16 30 03/01/20 07:00 60 16 144/45 (78) 99 03/01/20 06:30 63 18 03/01/20 06:00 63 18 147/51 (83) 100 03/01/20 05:29 66 16 30 03/01/20 05:00 68 20 143/69 (93) 100 03/01/20 04:00 Mechanical Ventilator 03/01/20 04:00 98.6 68 19 154/46 (82) 100 03/01/20 04:00 64 03/01/20 04:00 30 03/01/20 03:16 68 16 30 03/01/20 03:00 66 21 153/52 (85) 99 03/01/20 02:00 69 19 147/47 (80) 99 03/01/20 01:34 68 18 30 03/01/20 01:00 67 19 158/64 (95) 100 03/01/20 00:00 98.7 67 17 152/50 (84) 100 03/01/20 00:00 Mechanical Ventilator 03/01/20 00:00 30 03/01/20 00:00 67 02/29/20 23:36 63 16 30 02/29/20 23:00 67 18 148/47 (80) 100 02/29/20 22:00 69 22 153/57 (89) 100 02/29/20 21:32 68 17 30 02/29/20 21:00 71 18 167/52 (90) 99 02/29/20 20:00 98.6 65 17 155/62 (93) 100 02/29/20 20:00 30 02/29/20 20:00 68 02/29/20 20:00 Mechanical Ventilator 02/29/20 19:42 66 17 30 02/29/20 19:00 66 20 154/57 (89) 100 02/29/20 18:00 69 17 127/79 (95) 100 02/29/20 17:25 69 24 30 02/29/20 17:03 180/53 02/29/20 17:00 64 17 179/54 (95) 100 02/29/20 16:00 98.5 63 18 197/51 (99) 100 02/29/20 16:00 64 02/29/20 16:00 Mechanical Ventilator 02/29/20 16:00 30 02/29/20 15:00 63 17 161/49 (86) 100 02/29/20 14:49 63 16 30 02/29/20 14:00 68 17 185/57 (99) 99 02/29/20 13:16 63 16 30 02/29/20 13:00 64 17 151/74 (99) 100 02/29/20 12:00 98.4 67 17 119/100 (106) 99 02/29/20 12:00 98.4 02/29/20 12:00 Mechanical Ventilator 02/29/20 12:00 62 02/29/20 12:00 30 02/29/20 11:28 62 19 30 02/29/20 11:00 64 16 160/47 (84) 100 02/29/20 10:00 67 18 164/43 (83) 100 Height (Feet): 5 Height (Inches): 7.00 Weight (Pounds): 250 Objective General Appearance: no acute distress. well nourished. HEENT: normocephalic, atraumatic Respiratory/Chest: no respiratory distress, no accessory muscle use, equal chest rise Abdomen: non distended Neuro: awake. moving extremities Laboratory Tests Test 03/01/20 04:45 White Blood Count 8.8 K/UL (4.8-10.8) Red Blood Count 4.35 M/UL (4.20-5.40) Hemoglobin 10.2 G/DL (12.0-16.0) L Hematocrit 32.5 % (37.0-47.0) L Mean Corpuscular Volume 75 FL (80-99) L Mean Corpuscular Hemoglobin 23.5 PG (27.0-31.0) L Mean Corpuscular Hemoglobin Concent 31.5 G/DL (32.0-36.0) L Red Cell Distribution Width 14.9 % (11.6-14.8) H Platelet Count 329 K/UL (150-450) Mean Platelet Volume 6.7 FL (6.5-10.1) Neutrophils (%) (Auto) 61.5 % (45.0-75.0) Lymphocytes (%) (Auto) 19.4 % (20.0-45.0) L Monocytes (%) (Auto) 15.5 % (1.0-10.0) H Eosinophils (%) (Auto) 3.2 % (0.0-3.0) H Basophils (%) (Auto) 0.5 % (0.0-2.0) Sodium Level 137 MMOL/L (136-145) Potassium Level 4.9 MMOL/L (3.5-5.1) Chloride Level 94 MMOL/L (98-107) L Carbon Dioxide Level 27 MMOL/L (21-32) Anion Gap 16 mmol/L (5-15) H Blood Urea Nitrogen 91 mg/dL (7-18) H Creatinine 9.4 MG/DL (0.55-1.30) H Estimat Glomerular Filtration Rate 5.1 mL/min (>60) Glucose Level 100 MG/DL (74-106) Calcium Level 8.9 MG/DL (8.5-10.1) Current Medications Medications (Trade) Dose Ordered Sig/Josi Route PRN Reason Start Time Stop Time Status Last Admin Dose Admin Acetaminophen (Tylenol) 650 mg Q4H PRN GT fever 02/25/20 06:30 03/26/20 06:29 02/26/20 17:16 Albuterol/ Ipratropium (Combivent Respimat) 1 puffs Q4H PRN INH Shortness of Breath 02/25/20 06:30 03/26/20 06:29 Atorvastatin Calcium (Lipitor) 10 mg BEDTIME NG 02/25/20 21:00 05/25/20 20:59 02/29/20 21:00 Chlorhexidine Gluconate (Jenny-Hex 2%) 1 applic DAILY@199903/01/20 20:00 05/30/20 19:59 Epoetin Jose De Jesus (Epoetin Jose De Jesus(ESRD on dialysis)) 3,000 unit SUN-WED-SUN SUBQ 02/25/20 21:00 05/25/20 20:59 02/27/20 20:24 Heparin Sodium (Porcine) (Heparin 5000 units/ml) 5,000 units EVERY 12 HOURS SUBQ 02/25/20 09:00 04/10/20 08:59 02/29/20 20:24 Heparin Sodium/ Sodium Chloride (Heparin 1000 units/500ml Premix) 1,000 unit ONCE PRN IV PICC LINE 03/01/20 08:45 03/02/20 23:59 Hydralazine HCl (Apresoline) 10 mg Q4H PRN IV Blood pressure over 160 systol 02/25/20 06:30 05/25/20 06:29 02/29/20 17:03 Hydromorphone HCl (Dilaudid) 0.5 mg Q4H PRN IVP For Pain 02/25/20 06:30 03/03/20 06:29 02/28/20 18:52 Insulin Aspart (NovoLOG) BEFORE MEALS AND HS SUBQ 02/20/20 12:30 05/20/20 12:29 02/29/20 11:46 Labetalol HCl (Normodyne) 20 mg Q1H PRN IV sbp more than 180mmHg 02/25/20 06:30 03/26/20 06:29 Lidocaine HCl (Xylocaine 1% 30ml) 30 ml ONCE PRN INJ PICC LINE 03/01/20 08:45 03/01/20 23:59 Lorazepam (Ativan 2mg/ml 1ml) 2 mg Q2H PRN IV For Anxiety 02/25/20 06:30 03/03/20 06:29 02/25/20 09:13 Ondansetron HCl (Zofran) 4 mg Q6H PRN IVP Nausea & Vomiting 02/25/20 06:30 03/26/20 06:29 Pantoprazole (Protonix) 40 mg Q12HR IVP 02/25/20 09:00 03/26/20 08:59 03/01/20 09:15 Pyridoxine HCl (Vitamin B6) 50 mg DAILY NG 02/25/20 09:00 03/26/20 08:59 03/01/20 09:15 Sevelamer Carbonate (Renvela) 800 mg Q6HR NG 02/25/20 12:00 05/25/20 11:59 03/01/20 05:09 Thiamine HCl 100 mg/Dextrose 56 ml @ 112 mls/hr Q24H IVPB 02/25/20 12:00 03/26/20 11:59 02/29/20 11:30 Vancomycin HCl (Vanco rx to dose) 1 ea DAILY PRN MISC . 02/25/20 06:30 03/26/20 06:29 Clarice Nicolas MD Mar 01, 2020 09:21
--- NOTE | 2020-03-01 09:23 | General Progress Note ---
Assessment/Plan Problem List: (1) Obesity (BMI 30-39.9) ICD Codes: E66.9 - Obesity, unspecified SNOMED: 469262125, 905219127 (2) COVID-19 virus infection ICD Codes: U07.1 - COVID-19 SNOMED: 603152612 (3) Acute respiratory failure ICD Codes: J96.00 - Acute respiratory failure, unspecified whether with hypoxia or hypercapnia SNOMED: 04914268 (4) Blindness of both eyes ICD Codes: H54.0 - Blindness SNOMED: 693928229 (5) ESRD (end stage renal disease) on dialysis ICD Codes: N18.6 - End stage renal disease; Z99.2 - Dependence on renal dialysis SNOMED: 630821621 (6) Anemia ICD Codes: D64.9 - Anemia, unspecified SNOMED: 089965448 (7) Diabetes ICD Codes: E11.9 - Type 2 diabetes mellitus without complications SNOMED: 75475779 (8) AMS (altered mental status) ICD Codes: R41.82 - Altered mental status, unspecified SNOMED: 851515452 Status: unchanged Assessment/Plan: vent abx dialysis cbc bmp am Subjective Constitutional: Reports: weakness Allergies: Coded Allergies: NO KNOWN ALLERGIES (Unverified Allergy, Unknown, 10/15/15) All Systems: reviewed and negative except above Subjective intubated sedated ng in icu Objective Last 24 Hour Vital Signs Date Time Temp Pulse Resp B/P (MAP) Pulse Ox O2 Delivery O2 Flow Rate FiO2 03/01/20 08:58 61 16 100 Mechanical Ventilator 30 03/01/20 08:00 30 03/01/20 08:00 61 16 140/56 (84) 99 03/01/20 08:00 Mechanical Ventilator 03/01/20 07:16 61 16 30 03/01/20 07:00 60 16 144/45 (78) 99 03/01/20 06:30 63 18 03/01/20 06:00 63 18 147/51 (83) 100 03/01/20 05:29 66 16 30 03/01/20 05:00 68 20 143/69 (93) 100 03/01/20 04:00 Mechanical Ventilator 03/01/20 04:00 98.6 68 19 154/46 (82) 100 03/01/20 04:00 64 03/01/20 04:00 30 03/01/20 03:16 68 16 30 03/01/20 03:00 66 21 153/52 (85) 99 03/01/20 02:00 69 19 147/47 (80) 99 03/01/20 01:34 68 18 30 03/01/20 01:00 67 19 158/64 (95) 100 03/01/20 00:00 98.7 67 17 152/50 (84) 100 03/01/20 00:00 Mechanical Ventilator 03/01/20 00:00 30 03/01/20 00:00 67 02/29/20 23:36 63 16 30 02/29/20 23:00 67 18 148/47 (80) 100 02/29/20 22:00 69 22 153/57 (89) 100 02/29/20 21:32 68 17 30 02/29/20 21:00 71 18 167/52 (90) 99 02/29/20 20:00 98.6 65 17 155/62 (93) 100 02/29/20 20:00 30 02/29/20 20:00 68 02/29/20 20:00 Mechanical Ventilator 02/29/20 19:42 66 17 30 02/29/20 19:00 66 20 154/57 (89) 100 02/29/20 18:00 69 17 127/79 (95) 100 02/29/20 17:25 69 24 30 02/29/20 17:03 180/53 02/29/20 17:00 64 17 179/54 (95) 100 02/29/20 16:00 98.5 63 18 197/51 (99) 100 02/29/20 16:00 64 02/29/20 16:00 Mechanical Ventilator 02/29/20 16:00 30 02/29/20 15:00 63 17 161/49 (86) 100 02/29/20 14:49 63 16 30 02/29/20 14:00 68 17 185/57 (99) 99 02/29/20 13:16 63 16 30 02/29/20 13:00 64 17 151/74 (99) 100 02/29/20 12:00 98.4 67 17 119/100 (106) 99 02/29/20 12:00 98.4 02/29/20 12:00 Mechanical Ventilator 02/29/20 12:00 62 02/29/20 12:00 30 02/29/20 11:28 62 19 30 02/29/20 11:00 64 16 160/47 (84) 100 02/29/20 10:00 67 18 164/43 (83) 100 Intake and Output 02/29/20 03/01/20 19:00 07:00 Intake Total 520 ml 480 ml Output Total 15 ml 0 ml Balance 505 ml 480 ml Tube Feeding 420 ml 420 ml Other 100 ml 60 ml Output Urine Total 15 ml 0 ml # Bowel Movements 2 1 Laboratory Tests 03/01/20 04:45: White Blood Count 8.8, Red Blood Count 4.35, Hemoglobin 10.2L, Hematocrit 32.5L , Mean Corpuscular Volume 75L, Mean Corpuscular Hemoglobin 23.5L, Mean Corpuscular Hemoglobin Concent 31.5L, Red Cell Distribution Width 14.9H, Platelet Count 329, Mean Platelet Volume 6.7, Neutrophils (%) (Auto) 61.5, Lymphocytes (%) (Auto) 19.4L, Monocytes (%) (Auto) 15.5H, Eosinophils (%) (Auto ) 3.2H, Basophils (%) (Auto) 0.5, Sodium Level 137, Potassium Level 4.9, Chloride Level 94L, Carbon Dioxide Level 27, Anion Gap 16H, Blood Urea Nitrogen 91H, Creatinine 9.4H, Estimat Glomerular Filtration Rate 5.1, Glucose Level 100 , Calcium Level 8.9 Height (Feet): 5 Height (Inches): 7.00 Weight (Pounds): 250 General Appearance: lethargic EENT: normal ENT inspection Neck: normal alignment Cardiovascular: normal rate, regular rhythm Respiratory/Chest: no accessory muscle use Extremities: normal inspection Skin: normal pigmentation Roderick Henning DO Mar 01, 2020 09:23
--- NOTE | 2020-03-01 10:00 | NUR ---
NURSE NOTES: Patient remains orally intubated ETT 7.5 at 25cm right side lip line. Patient is tolerating vent settings at this time. OGT noted on the right lip intact, patent. Auscultated placement prior to giving medications. Nepro at 35ml/hr infusing, no residuals noted. HOB elevated at 30 degrees. Oral care provided. Suctioned orally and via Et tube with minimal thin, white secretions noted. All scheduled medications given. Right upper arm AV shunt noted with good bruit and thrill. No BM noted at this time. Tyler catheter intact, patent, with scant amount of jessa color urine output. VSS, patient is afebrile. Restraints care provided; released and reapplied. Safety precautions in place, bed locked, alarmed, and in lowest position, side rails up x3. No s/s of pain/distress, will continue to monitor.
--- NOTE | 2020-03-01 10:04 | Pulmonolgy Critical Care Note ---
Critical Care - Asmt/Plan Problems: (1) COVID-19 virus infection (2) Acute respiratory failure (3) Sepsis (4) ESRD (end stage renal disease) on dialysis (5) Accelerated hypertension (6) Decubital ulcer (7) Pacemaker (8) Diabetes (9) Blindness of both eyes (10) Morbid obesity (11) HTN (hypertension) Respiratory: monitor respiratory rate, adjust FIO2, CXR Cardiac: continue to monitor HR/BP Renal: F/U I&O, keep IV fluid Infectious Disease: check cultures, continue antibiotics Gastrointestinal: continue feedings/current rate Endocrine: monitor blood sugar Hematologic: monitor H/H Neurologic: PRN Ativan Affect: PRN ativan Time Spent (Minutes): 40 Notes Reviewed: chemical process project engineer, cardio, renal, ID Discussed with: nurses, case work aidecommunity relations manager - Objective Last 24 Hour Vital Signs Date Time Temp Pulse Resp B/P (MAP) Pulse Ox O2 Delivery O2 Flow Rate FiO2 03/01/20 09:00 98.9 61 16 131/56 (81) 99 03/01/20 09:00 98.9 61 16 140/56 (84) 99 03/01/20 08:58 61 16 100 Mechanical Ventilator 30 03/01/20 08:00 30 03/01/20 08:00 60 03/01/20 08:00 61 16 140/56 (84) 99 03/01/20 08:00 Mechanical Ventilator 03/01/20 07:16 61 16 30 03/01/20 07:00 60 16 144/45 (78) 99 03/01/20 06:30 63 18 03/01/20 06:00 63 18 147/51 (83) 100 03/01/20 05:29 66 16 30 03/01/20 05:00 68 20 143/69 (93) 100 03/01/20 04:00 Mechanical Ventilator 03/01/20 04:00 98.6 68 19 154/46 (82) 100 03/01/20 04:00 64 03/01/20 04:00 30 03/01/20 03:16 68 16 30 03/01/20 03:00 66 21 153/52 (85) 99 03/01/20 02:00 69 19 147/47 (80) 99 03/01/20 01:34 68 18 30 03/01/20 01:00 67 19 158/64 (95) 100 03/01/20 00:00 98.7 67 17 152/50 (84) 100 03/01/20 00:00 Mechanical Ventilator 03/01/20 00:00 30 03/01/20 00:00 67 02/29/20 23:36 63 16 30 02/29/20 23:00 67 18 148/47 (80) 100 02/29/20 22:00 69 22 153/57 (89) 100 02/29/20 21:32 68 17 30 02/29/20 21:00 71 18 167/52 (90) 99 02/29/20 20:00 98.6 65 17 155/62 (93) 100 02/29/20 20:00 30 02/29/20 20:00 68 02/29/20 20:00 Mechanical Ventilator 02/29/20 19:42 66 17 30 02/29/20 19:00 66 20 154/57 (89) 100 02/29/20 18:00 69 17 127/79 (95) 100 02/29/20 17:25 69 24 30 02/29/20 17:03 180/53 02/29/20 17:00 64 17 179/54 (95) 100 02/29/20 16:00 98.5 63 18 197/51 (99) 100 02/29/20 16:00 64 02/29/20 16:00 Mechanical Ventilator 02/29/20 16:00 30 02/29/20 15:00 63 17 161/49 (86) 100 02/29/20 14:49 63 16 30 02/29/20 14:00 68 17 185/57 (99) 99 02/29/20 13:16 63 16 30 02/29/20 13:00 64 17 151/74 (99) 100 02/29/20 12:00 98.4 67 17 119/100 (106) 99 02/29/20 12:00 98.4 02/29/20 12:00 Mechanical Ventilator 02/29/20 12:00 62 02/29/20 12:00 30 02/29/20 11:28 62 19 30 02/29/20 11:00 64 16 160/47 (84) 100 Status: awake Condition: critical HEENT: atraumatic Neck: full ROM Lungs: rales, rhonchi Heart: HR/BP stable Abdomen: soft, feeding tube Extremities: no C/C/E Accucheck: 102 Critical Care - Subjective ROS Limited/Unobtainable: Yes Interval Events: comfortable, afebrile Condition: critical FI02: 30 Vent Support Breath Rate: 16 Vent Support Mode: AC Vent Tidal Volume: 600 Sputum Amount: Small PEEP: 0.0 PIP: 31 Tube Feeding Amount: 35 I&O: Intake and Output 02/29/20 03/01/20 19:00 07:00 Intake Total 520 ml 480 ml Output Total 15 ml 0 ml Balance 505 ml 480 ml Tube Feeding 420 ml 420 ml Other 100 ml 60 ml Output Urine Total 15 ml 0 ml # Bowel Movements 2 1 ET-Tube: 7.5 ET Position: 25 Labs: Laboratory Tests Test 03/01/20 04:45 White Blood Count 8.8 K/UL (4.8-10.8) Red Blood Count 4.35 M/UL (4.20-5.40) Hemoglobin 10.2 G/DL (12.0-16.0) L Hematocrit 32.5 % (37.0-47.0) L Mean Corpuscular Volume 75 FL (80-99) L Mean Corpuscular Hemoglobin 23.5 PG (27.0-31.0) L Mean Corpuscular Hemoglobin Concent 31.5 G/DL (32.0-36.0) L Red Cell Distribution Width 14.9 % (11.6-14.8) H Platelet Count 329 K/UL (150-450) Mean Platelet Volume 6.7 FL (6.5-10.1) Neutrophils (%) (Auto) 61.5 % (45.0-75.0) Lymphocytes (%) (Auto) 19.4 % (20.0-45.0) L Monocytes (%) (Auto) 15.5 % (1.0-10.0) H Eosinophils (%) (Auto) 3.2 % (0.0-3.0) H Basophils (%) (Auto) 0.5 % (0.0-2.0) Sodium Level 137 MMOL/L (136-145) Potassium Level 4.9 MMOL/L (3.5-5.1) Chloride Level 94 MMOL/L (98-107) L Carbon Dioxide Level 27 MMOL/L (21-32) Anion Gap 16 mmol/L (5-15) H Blood Urea Nitrogen 91 mg/dL (7-18) H Creatinine 9.4 MG/DL (0.55-1.30) H Estimat Glomerular Filtration Rate 5.1 mL/min (>60) Glucose Level 100 MG/DL (74-106) Calcium Level 8.9 MG/DL (8.5-10.1) Meghana Murillo MD Mar 01, 2020 10:04
--- NOTE | 2020-03-01 10:59 | Diagnostic Imaging Report ---
Indication: Shortness of breath Technique: One view of the chest Comparison: 02/24/2020 Findings: Stable satisfactory positions of endotracheal and orogastric tubes. Left chest pacemaker again demonstrated. Cardiomegaly is again demonstrated. Again demonstrated is hazy parenchymal disease bilaterally. This is more diffuse and extensive than on the prior exam, previously predominantly basilar. Impression: Worsening bilateral hazy parenchymal infiltrates, versus edema
--- NOTE | 2020-03-01 11:17 | Nephrology Progress Note ---
Assessment/Plan Problem List: (1) Acute respiratory failure (2) ESRD (end stage renal disease) on dialysis (3) UTI (urinary tract infection) (4) Patient is Rastafarian (5) Pacemaker (6) Diabetes (7) Obesity (BMI 30-39.9) Assessment ARDS (adult respiratory distress syndrome) Fever Sepsis UTI (urinary tract infection) Respiratory failure, intubated on ventilator Thrombocytopenia Lymphopenia End stage renal disease on dialysis. Has a right upper arm dialysis fistula as Acces . Getting dialysis Sunday. morbid obesity Anemia / Jehova's witness CAD previous stent HTN- hypertensive urgency upon arrival to [facility]. s/p AVG DM 2 bilateral eye blindness h/o CHF Pacemaker Plan Patient positive for Covid 19 Per ID and pulmonary, ventilator adjustment Last dialyzed February 26, next dialysis March 01 EPO, thiamin and b6 Phos binders NGT feeding per consultants Remains full code at this time Subjective ROS Limited/Unobtainable: Yes Objective Objective Last 24 Hour Vital Signs Date Time Temp Pulse Resp B/P (MAP) Pulse Ox O2 Delivery O2 Flow Rate FiO2 03/01/20 11:00 60 16 121/41 (67) 99 03/01/20 10:00 62 16 147/53 (84) 99 03/01/20 09:00 98.9 61 16 131/56 (81) 99 03/01/20 09:00 98.9 61 16 140/56 (84) 99 03/01/20 08:58 61 16 100 Mechanical Ventilator 30 03/01/20 08:00 30 03/01/20 08:00 60 03/01/20 08:00 61 16 140/56 (84) 99 03/01/20 08:00 Mechanical Ventilator 03/01/20 07:16 61 16 30 03/01/20 07:00 60 16 144/45 (78) 99 03/01/20 06:30 63 18 03/01/20 06:00 63 18 147/51 (83) 100 03/01/20 05:29 66 16 30 03/01/20 05:00 68 20 143/69 (93) 100 03/01/20 04:00 Mechanical Ventilator 03/01/20 04:00 98.6 68 19 154/46 (82) 100 03/01/20 04:00 64 03/01/20 04:00 30 03/01/20 03:16 68 16 30 03/01/20 03:00 66 21 153/52 (85) 99 03/01/20 02:00 69 19 147/47 (80) 99 03/01/20 01:34 68 18 30 03/01/20 01:00 67 19 158/64 (95) 100 03/01/20 00:00 98.7 67 17 152/50 (84) 100 03/01/20 00:00 Mechanical Ventilator 03/01/20 00:00 30 03/01/20 00:00 67 02/29/20 23:36 63 16 30 02/29/20 23:00 67 18 148/47 (80) 100 02/29/20 22:00 69 22 153/57 (89) 100 02/29/20 21:32 68 17 30 02/29/20 21:00 71 18 167/52 (90) 99 02/29/20 20:00 98.6 65 17 155/62 (93) 100 02/29/20 20:00 30 02/29/20 20:00 68 02/29/20 20:00 Mechanical Ventilator 02/29/20 19:42 66 17 30 02/29/20 19:00 66 20 154/57 (89) 100 02/29/20 18:00 69 17 127/79 (95) 100 02/29/20 17:25 69 24 30 02/29/20 17:03 180/53 02/29/20 17:00 64 17 179/54 (95) 100 02/29/20 16:00 98.5 63 18 197/51 (99) 100 02/29/20 16:00 64 02/29/20 16:00 Mechanical Ventilator 02/29/20 16:00 30 02/29/20 15:00 63 17 161/49 (86) 100 02/29/20 14:49 63 16 30 02/29/20 14:00 68 17 185/57 (99) 99 02/29/20 13:16 63 16 30 02/29/20 13:00 64 17 151/74 (99) 100 02/29/20 12:00 98.4 67 17 119/100 (106) 99 02/29/20 12:00 98.4 02/29/20 12:00 Mechanical Ventilator 02/29/20 12:00 62 02/29/20 12:00 30 02/29/20 11:28 62 19 30 Intake and Output 02/29/20 03/01/20 19:00 07:00 Intake Total 520 ml 480 ml Output Total 15 ml 0 ml Balance 505 ml 480 ml Tube Feeding 420 ml 420 ml Other 100 ml 60 ml Output Urine Total 15 ml 0 ml # Bowel Movements 2 1 Laboratory Tests 03/01/20 04:45: White Blood Count 8.8, Red Blood Count 4.35, Hemoglobin 10.2L, Hematocrit 32.5L , Mean Corpuscular Volume 75L, Mean Corpuscular Hemoglobin 23.5L, Mean Corpuscular Hemoglobin Concent 31.5L, Red Cell Distribution Width 14.9H, Platelet Count 329, Mean Platelet Volume 6.7, Neutrophils (%) (Auto) 61.5, Lymphocytes (%) (Auto) 19.4L, Monocytes (%) (Auto) 15.5H, Eosinophils (%) (Auto ) 3.2H, Basophils (%) (Auto) 0.5, Sodium Level 137, Potassium Level 4.9, Chloride Level 94L, Carbon Dioxide Level 27, Anion Gap 16H, Blood Urea Nitrogen 91H, Creatinine 9.4H, Estimat Glomerular Filtration Rate 5.1, Glucose Level 100 , Calcium Level 8.9 Height (Feet): 5 Height (Inches): 7.00 Weight (Pounds): 250 General Appearance: no apparent distress EENT: other Cardiovascular: normal rate Respiratory/Chest: decreased breath sounds - Intubated and vented Abdomen: soft Bryan Hunter MD Mar 01, 2020 11:17
--- NOTE | 2020-03-01 12:01 | NUR ---
RADIOLOGY NOTE: LEFT UPPER EXTREMITY PICC LINE PLACE BY DR. EDEL OROSCO AT 1130 HRS. FA
[2020-03-01] MEDS: Thiamine HCl 100 MG in D5W 55 ML IVPB SCH (12:07)
--- NOTE | 2020-03-01 12:19 | Brief Operative Note ---
Immediate Post Operative Note Operative Note Pre-op Diagnosis: needs long-term IV access Procedure: PICC Post-op Diagnosis: same as pre-op Surgeon: Wendy Wright Specimen: none Complications: none Fluids: none Implant(s) used?: No Bhanu Wright MD Mar 01, 2020 12:19
--- NOTE | 2020-03-01 12:27 | Diagnostic Imaging Report ---
Indications: Needs long-term IV access Technique: Procedure performed at bedside. Procedural timeout performed. Ultrasound confirms patent compressible left basilic vein. Total sterile technique, including sterile probe cover and sterile gel, sterile gloves, hand hygiene, hat, mask,, sterile gown, large sterile drape, and preparation with 2% chlorhexidine utilized. Local anesthesia with 1% lidocaine. Under real-time ultrasound guidance, puncture basilic vein using 21-gauge needle, passage 0.018 guidewire, exchange for 4 Maori peel-away sheath. 4 Maori Bard dual-lumen power PICC cut to 47 cm. It was inserted through the peel-away sheath. Peel-away sheath and guidewire removed. Catheter fixed to the skin. Both catheter ports aspirated and flushed. Patient tolerated procedure well, without immediate complication. Followup chest x-ray obtained, documents catheter tip position at the innominate venous confluence Impression: Successful bedside placement of left arm PICC under sonographic guidance, as described above.
[2020-03-01] MEDS: Acetaminophen 650mg/20.3ml GT PRN (12:30)
--- NOTE | 2020-03-01 12:30 | NUR ---
NURSE NOTES: Patient noted to have temperature 100.6 rectally. Tylenol given and cooling blanket turned on. Repositioned and turned patient. Noted small BM. Allegra-care provided. PICC line on left upper arm, OK to use per Dr Robles. Dressing replaced. Oral care given; suctioned patient. Restraints care provided. Left patient clean and dry. Will continue to monitor.
--- NOTE | 2020-03-01 14:00 | NUR ---
NURSE NOTES: Temp 99.4 rectally, cooling blanket remains on . Patient tolerating vent settings and TF. HOB elevated. Restraints care provided. Released; skin, pulses, circulation checked and reapplied restraints. Safety precautions in place. No s/s of distress. Will continue to monitor.
--- NOTE | 2020-03-01 15:12 | NUR ---
CASE MANAGEMENT: REVIEW SI: ACUTE RESP FAILURE . ESRD on HD . COVID-19 VIRUS DETECTED T 100.6 HR 60 RR 16 BP 135/51 SAT 99% MECH VENT FIO2 30 BUN 91 CR 9.4 IS: VITAMIN B1 IV Q24HR VITAMIN B6 GT QDAY EPOETIN SUBQ MWF HD PRN GT FEEDING ICU STATUS DCP: PATIENT IS FROM [facility]
--- NOTE | 2020-03-01 16:00 | NUR ---
NURSE NOTES: Dr Nicolas present in the unit, notified and made aware that patient has fever today. No new orders received at this time. Patient VSS, temp 99.4 rectally, cooling blanket remains on. Patient is saturating well, tolerating TF. Restraints remains on with safety precautions. Will continue to monitor patient.
--- NOTE | 2020-03-01 17:24 | Cardiology Progress Note ---
Assessment/Plan Assessment/Plan 1. Respiratory failure. 2. History of obesity hypoventilation syndrome. 3. History of pulmonary hypertension previously. 4. Urinary tract infection. 5. covid 19 infection confimred 6. pneumonia. 7. History of bacteremia with Staph epi recently on 02/05/2020. i did not examine pt personally i did not feel the risk to me personally are worth the limited information that could be obtained while pt is not communicative and on a vent with confirmed covid 19 tele reviewed sinus atrial paced hemodynamically stable saturation and secretion have been ok still with intermittent fever no diarrhea d/w rn sats are 99- 100% on 30% fio2 still no weaning perfomred today on abx holding off in ordering echo at this time due to active covid 19 infecion all labs reviewed cxr noted reviewed but finding are not that prominent now with picc line await dialysis today Objective Last 24 Hour Vital Signs Date Time Temp Pulse Resp B/P (MAP) Pulse Ox O2 Delivery O2 Flow Rate FiO2 03/01/20 16:00 60 15 128/54 (78) 99 03/01/20 16:00 Mechanical Ventilator 03/01/20 16:00 30 03/01/20 15:00 60 17 30 03/01/20 15:00 60 16 129/52 (77) 100 03/01/20 14:00 60 16 133/47 (75) 99 03/01/20 13:00 60 16 135/51 (79) 99 03/01/20 13:00 100.4 03/01/20 12:43 71 20 30 03/01/20 12:00 60 03/01/20 12:00 100.6 60 16 130/55 (80) 100 03/01/20 12:00 Mechanical Ventilator 03/01/20 12:00 30 03/01/20 11:00 60 16 121/41 (67) 99 03/01/20 10:00 62 16 147/53 (84) 99 03/01/20 09:00 98.9 61 16 131/56 (81) 99 03/01/20 09:00 98.9 61 16 140/56 (84) 99 03/01/20 08:58 61 16 100 Mechanical Ventilator 30 03/01/20 08:00 30 03/01/20 08:00 60 03/01/20 08:00 61 16 140/56 (84) 99 03/01/20 08:00 Mechanical Ventilator 03/01/20 07:16 61 16 30 03/01/20 07:00 60 16 144/45 (78) 99 03/01/20 06:30 63 18 03/01/20 06:00 63 18 147/51 (83) 100 03/01/20 05:29 66 16 30 03/01/20 05:00 68 20 143/69 (93) 100 03/01/20 04:00 Mechanical Ventilator 03/01/20 04:00 98.6 68 19 154/46 (82) 100 03/01/20 04:00 64 03/01/20 04:00 30 03/01/20 03:16 68 16 30 03/01/20 03:00 66 21 153/52 (85) 99 03/01/20 02:00 69 19 147/47 (80) 99 03/01/20 01:34 68 18 30 03/01/20 01:00 67 19 158/64 (95) 100 03/01/20 00:00 98.7 67 17 152/50 (84) 100 03/01/20 00:00 Mechanical Ventilator 03/01/20 00:00 30 03/01/20 00:00 67 02/29/20 23:36 63 16 30 02/29/20 23:00 67 18 148/47 (80) 100 02/29/20 22:00 69 22 153/57 (89) 100 02/29/20 21:32 68 17 30 02/29/20 21:00 71 18 167/52 (90) 99 02/29/20 20:00 98.6 65 17 155/62 (93) 100 02/29/20 20:00 30 02/29/20 20:00 68 02/29/20 20:00 Mechanical Ventilator 02/29/20 19:42 66 17 30 02/29/20 19:00 66 20 154/57 (89) 100 02/29/20 18:00 69 17 127/79 (95) 100 02/29/20 17:25 69 24 30 Intake and Output 02/29/20 03/01/20 19:00 07:00 Intake Total 520 ml 480 ml Output Total 15 ml 0 ml Balance 505 ml 480 ml Tube Feeding 420 ml 420 ml Other 100 ml 60 ml Output Urine Total 15 ml 0 ml # Bowel Movements 2 1 Laboratory Tests Test 03/01/20 04:45 White Blood Count 8.8 K/UL (4.8-10.8) Red Blood Count 4.35 M/UL (4.20-5.40) Hemoglobin 10.2 G/DL (12.0-16.0) L Hematocrit 32.5 % (37.0-47.0) L Mean Corpuscular Volume 75 FL (80-99) L Mean Corpuscular Hemoglobin 23.5 PG (27.0-31.0) L Mean Corpuscular Hemoglobin Concent 31.5 G/DL (32.0-36.0) L Red Cell Distribution Width 14.9 % (11.6-14.8) H Platelet Count 329 K/UL (150-450) Mean Platelet Volume 6.7 FL (6.5-10.1) Neutrophils (%) (Auto) 61.5 % (45.0-75.0) Lymphocytes (%) (Auto) 19.4 % (20.0-45.0) L Monocytes (%) (Auto) 15.5 % (1.0-10.0) H Eosinophils (%) (Auto) 3.2 % (0.0-3.0) H Basophils (%) (Auto) 0.5 % (0.0-2.0) Sodium Level 137 MMOL/L (136-145) Potassium Level 4.9 MMOL/L (3.5-5.1) Chloride Level 94 MMOL/L (98-107) L Carbon Dioxide Level 27 MMOL/L (21-32) Anion Gap 16 mmol/L (5-15) H Blood Urea Nitrogen 91 mg/dL (7-18) H Creatinine 9.4 MG/DL (0.55-1.30) H Estimat Glomerular Filtration Rate 5.1 mL/min (>60) Glucose Level 100 MG/DL (74-106) Calcium Level 8.9 MG/DL (8.5-10.1) Hepatitis B Surface Antigen Pending Wilfredo Reyna MD Mar 01, 2020 17:24
--- NOTE | 2020-03-01 18:08 | NUR ---
NURSE NOTES: BM noted, moderate amount of soft, brown, stool. Bed bath given, linens changed, and placed patient on clean gown. Provided oral care and suctioning with minimal amount of thick, white sputum. TF resumed after care and placed HOB elevated. Restraints and cooling blanket remains on, temp 99F rectally. No s/s of distress at this time. VSS. Spoke with Dr Reyna via telephone, updated regarding patient's condition; no new orders received. Will continue to monitor.
--- NOTE | 2020-03-01 19:01 | NUR ---
HAND-OFF: Report given to NATHALIA Wooten. Endorsed POC.
--- NOTE | 2020-03-01 19:02 | NUR ---
NURSE NOTES: Endorsement received from NATHALIA Landrum. Patient asleep at this time. A paced on the monitor. Afebrile at this time, 98.7 rectally. No shortness of breath. Orally intubated with ETT 7.5, 25 lipline. AC 16, 600, 30%. OGT present, on Nepro 35 ml/hr. With right upper arm AV shunt. Dressing dry and intact. Right arm precaution. With left upper arm PICC. Tyler catheter in place, draining to urimeter. Bilateral soft wrists restraints for attempting to pull out tubings. Head of bed elevated. Bed locked and in low position. Bed alarm on. Call light within reach. On airborne and contact precautions.
--- NOTE | 2020-03-01 20:00 | NUR ---
NURSE NOTES: Dialysis nurse at bedside.
--- NOTE | 2020-03-01 21:00 | NUR ---
NURSE NOTES: Patient currently being dialyzed, due medications will be given after.
[2020-03-01] MEDS: Dyna-Hex 2% Top Sol 2oz TOPIC SCH (22:44)
[2020-03-01] MEDS: Epoetin Alfa-EPBX(ESRD on dialysis)3000 units/ml vial SUBQ SCH (22:45)
--- NOTE | 2020-03-01 23:00 | NUR ---
NURSE NOTES: Dialysis finished. As per HD nurse Tab, 3L output. 2100H medications given. Heparin held at this time to prevent bleeding at right arm fistula.
[2020-03-02] VITALS (26 sets, daily range): BP systolic 102–188; BP diastolic 43–113
--- NOTE | 2020-03-02 01:00 | NUR ---
NURSE NOTES: Patient asleep. Vital signs stable. No bleeding at right upper arm shunt.
--- NOTE | 2020-03-02 04:00 | NUR ---
NURSE NOTES: Patient having fever, 100.6 rectally. Restarted on cooling blanket. Bed bath, oral care change of linens done.
[2020-03-02 04:31] LABS: BASOPHILS % (AUTO) 0.5 % (0.0-2.0); EOSINOPHILS % (AUTO) 1.8 % (0.0-3.0); HEMATOCRIT 29.2 % (37.0-47.0); HEMOGLOBIN 9.3 G/DL (12.0-16.0); LYMPHOCYTES % (AUTO) 17.7 % (20.0-45.0); MEAN CORPUSCULAR VOLUME 74 FL (80-99); MONOCYTES % (AUTO) 13.6 % (1.0-10.0); NEUTROPHILS % (AUTO) 66.4 % (45.0-75.0); PLATELET COUNT 306 K/UL (150-450); RED BLOOD COUNT 3.94 M/UL (4.20-5.40); RED CELL DISTRIBUTION WIDTH 14.8 % (11.6-14.8); WHITE BLOOD COUNT 7.6 K/UL (4.8-10.8)
[2020-03-02] MEDS: Renvela 800mg Pkt NG SCH ×4 (05:00→23:49)
[2020-03-02 05:10] LABS: ALANINE AMINOTRANSFERASE 21 U/L (12-78); ALBUMIN 2.8 G/DL (3.4-5.0); ALBUMIN/GLOBULIN RATIO 0.6 (1.0-2.7); ALKALINE PHOSPHATASE 308 U/L (46-116); ANION GAP 8 mmol/L (5-15); ASPARTATE AMINO TRANSFERASE 61 U/L (15-37); BILIRUBIN,TOTAL 0.6 MG/DL (0.2-1.0); BLOOD UREA NITROGEN 56 mg/dL (7-18); CALCIUM 8.8 MG/DL (8.5-10.1); CARBON DIOXIDE 34 MMOL/L (21-32); CHLORIDE 98 MMOL/L (98-107); CREATININE 6.7 MG/DL (0.55-1.30); PHOSPHORUS 4.5 MG/DL (2.5-4.9); SODIUM 140 MMOL/L (136-145)
--- NOTE | 2020-03-02 06:00 | NUR ---
NURSE NOTES: Blood sugar within normal limits.
[2020-03-02] MEDS: NovoLOG Insulin Flexpen SUBQ SCH ×4 (06:30→21:00)
--- NOTE | 2020-03-02 07:26 | NUR ---
HAND-OFF: Report given to NATHALIA Woody.
--- NOTE | 2020-03-02 07:27 | NUR ---
NURSE NOTES: Pt received from NATHALIA Soto. Pt is awake, opens eyes spontaneously, able to follow commands. Pt is A-pacing to court recording monitor. Temp noted 98.2 F rectal. Bilat radial and dorsalis pedis pulses 3+ bilaterally. Generalized anterior non-pitting noted . Pt is mechanically intubated with 7.5 ETT noted 25 cm at the lip with the following settings: AC 16, FiO2 30% no PEEP. OGT noted running Nepro at 30 cc/hr. No gastric residuals noted. All lung lobes noted with rhonchi and diminished upon auscultation. Pt has a sotelo draining small amount of dark jessa urine with sedimentation. Skin alterations noted. Optifoam placed on bilat heels, hips, and sacrum for protection, pt is on BURT mattress and both heels are floating bilaterally. Pt repositioned and oral care provided. 1 BM noted, pt cleaned and provided perineal care. Pt has a ALEXIS PICC with dry and intact dressing running NS TKO at 5 cc/hr. Pt has right arm AV shunt covered with dry and intact gauze without notable bleeding. AUTOMOTIVE BRAKE ADJUSTER restraints noted, bilat radial pulses are palpable (3+ bilaterally), skin to both wrists intact without redness. Bed is in lowest position, alarm on, side rails up x 3, call light within reach. No acute distress noted. Will continue with plan of care.
[2020-03-02] MEDS: Pyridoxine 50mg tab NG SCH (08:06)
[2020-03-02] MEDS: Pantoprazole Inj IVP SCH ×2 (08:06→20:44)
[2020-03-02] MEDS: Heparin 5000 units/ml inj SUBQ SCH ×2 (08:13→20:46)
--- NOTE | 2020-03-02 08:51 | NUR ---
CASE MANAGEMENT: REVIEW SI: ACUTE RESP FAILURE . ESRD on HD . COVID-19 VIRUS DETECTED T 100.6 HR 69 RR 19 BP 176/69 SAT 97% MECH VENT FIO2 30 H/H 9.3/29.2 BUN 56 CR 6.7 MAG 2.6 IS: VANCOMYCIN IV X1 VITAMIN B1 IV Q24HR VITAMIN B6 GT QDAY EPOETIN SUBQ MWF HD PRN GT FEEDING ICU STATUS DCP: PATIENT IS FROM [facility]
--- NOTE | 2020-03-02 09:52 | Infectious Diseases Prog Note ---
Assessment/Plan Assessment/Plan ASSESSMENT: The patient is a 64-year-old female with Confirmed COVID-19. SARS-CoV PCR positive. Pneumonia No leukocytosis Fever, recurrent - likely 2/2 COVID, less likely active bacterial superinfection since pt just completed empiric course of antibacterial therapy and sputum cx NG - 03/01 CXR: Worsening bilateral hazy parenchymal infiltrates, versus edema -02/20 CXR: Mild pulmonary vascular congestion with subtle bilateral haziness , not significantly changed.Possible tiny pleural effusions. Cardiomegaly. -Bcx ngtd -sp cx normal gui Less likely UTI u/a wbc tnct, nit +, leuk +3; ucx cindy(colonizer) Hx of positive blood culture CONS ,persistent 02/04 BCx: CoNS 01/30 Bc: (1/2)CoNS and Citrobacter 01/27 , 02/01 Bc: CoNS - (outside facility, # of the +ve cultures are not clear) A 2D echo from outside facility did not show any evidence of vegetation as per Carido pt is high risk for CLAY: ( last admission ) Diabetes. CHF. ESRD. Hypertension. Obesity. PLAN: continue the patient on vancomycin, day # ? 36/ ( will Rx for probable SBE) 02/27 SP plaquenil+azithromycin #5 / SP Ertapenem #8 02/24 DC amikacin #6 Monitor CBC. Monitor BMP. Monitor cultures (blood, Sp ) Airborne. Contact plus Isolation JAE RN Subjective Allergies: Coded Allergies: NO KNOWN ALLERGIES (Unverified Allergy, Unknown, 10/15/15) Subjective Still with fever. FiO2 30%. No leukocytosis. No pressors sediments in sotelo Objective Vital Signs Last 24 Hour Vital Signs Date Time Temp Pulse Resp B/P (MAP) Pulse Ox O2 Delivery O2 Flow Rate FiO2 03/02/20 07:12 71 18 30 03/02/20 07:05 72 20 146/78 (100) 99 03/02/20 07:00 71 18 182/59 (100) 99 03/02/20 06:30 62 18 03/02/20 06:00 99.5 76 21 152/87 (108) 99 03/02/20 05:01 73 19 30 03/02/20 05:00 100.2 74 18 176/69 (104) 100 03/02/20 04:00 100.6 69 19 146/44 (78) 97 4/7/20 04:00 30 03/02/20 04:00 65 03/02/20 04:00 Mechanical Ventilator 03/02/20 03:00 73 15 146/44 (78) 98 03/02/20 03:00 71 18 30 03/02/20 02:00 67 16 139/49 (79) 97 03/02/20 01:05 71 20 30 03/02/20 01:00 69 20 162/46 (84) 98 03/02/20 00:00 30 03/02/20 00:00 60 03/02/20 00:00 99.4 60 15 154/45 (81) 98 03/02/20 00:00 Mechanical Ventilator 03/01/20 23:29 66 17 30 03/01/20 23:00 61 16 145/49 (81) 99 03/01/20 22:00 63 17 146/53 (84) 99 03/01/20 21:30 61 20 30 03/01/20 21:30 63 15 145/56 (85) 99 03/01/20 21:00 61 14 133/52 (79) 99 03/01/20 20:30 60 16 135/56 (82) 98 03/01/20 20:00 61 16 144/55 (84) 97 03/01/20 20:00 61 03/01/20 20:00 Mechanical Ventilator 03/01/20 20:00 30 03/01/20 19:00 61 22 30 03/01/20 19:00 98.7 60 10 138/46 (76) 97 03/01/20 18:00 61 17 129/48 (75) 97 03/01/20 17:00 63 15 110/52 (71) 100 03/01/20 16:55 60 23 30 03/01/20 16:00 99.4 60 15 128/54 (78) 99 03/01/20 16:00 Mechanical Ventilator 03/01/20 16:00 60 03/01/20 16:00 30 03/01/20 15:00 60 17 30 03/01/20 15:00 60 16 129/52 (77) 100 03/01/20 14:00 60 16 133/47 (75) 99 03/01/20 13:00 60 16 135/51 (79) 99 4/6/20 13:00 100.4 03/01/20 12:43 71 20 30 03/01/20 12:00 60 03/01/20 12:00 100.6 60 16 130/55 (80) 100 03/01/20 12:00 Mechanical Ventilator 03/01/20 12:00 30 03/01/20 11:00 60 16 121/41 (67) 99 03/01/20 10:00 62 16 147/53 (84) 99 Height (Feet): 5 Height (Inches): 7.00 Weight (Pounds): 243 Objective General Appearance: no acute distress. well nourished. HEENT: normocephalic, atraumatic Respiratory/Chest: no respiratory distress, no accessory muscle use, equal chest rise Abdomen: non distended. Sotelo with sediments Neuro: awake. moving extremities Laboratory Tests Test 03/02/20 04:00 White Blood Count 7.6 K/UL (4.8-10.8) Red Blood Count 3.94 M/UL (4.20-5.40) L Hemoglobin 9.3 G/DL (12.0-16.0) L Hematocrit 29.2 % (37.0-47.0) L Mean Corpuscular Volume 74 FL (80-99) L Mean Corpuscular Hemoglobin 23.7 PG (27.0-31.0) L Mean Corpuscular Hemoglobin Concent 31.9 G/DL (32.0-36.0) L Red Cell Distribution Width 14.8 % (11.6-14.8) Platelet Count 306 K/UL (150-450) Mean Platelet Volume 6.7 FL (6.5-10.1) Neutrophils (%) (Auto) 66.4 % (45.0-75.0) Lymphocytes (%) (Auto) 17.7 % (20.0-45.0) L Monocytes (%) (Auto) 13.6 % (1.0-10.0) H Eosinophils (%) (Auto) 1.8 % (0.0-3.0) Basophils (%) (Auto) 0.5 % (0.0-2.0) Sodium Level 140 MMOL/L (136-145) Potassium Level 4.0 MMOL/L (3.5-5.1) Chloride Level 98 MMOL/L (98-107) Carbon Dioxide Level 34 MMOL/L (21-32) H Anion Gap 8 mmol/L (5-15) Blood Urea Nitrogen 56 mg/dL (7-18) H Creatinine 6.7 MG/DL (0.55-1.30) H Estimat Glomerular Filtration Rate 7.5 mL/min (>60) Glucose Level 117 MG/DL (74-106) H Uric Acid 3.3 MG/DL (2.6-7.2) Calcium Level 8.8 MG/DL (8.5-10.1) Phosphorus Level 4.5 MG/DL (2.5-4.9) Magnesium Level 2.6 MG/DL (1.8-2.4) H Total Bilirubin 0.6 MG/DL (0.2-1.0) Aspartate Amino Transf (AST/SGOT) 61 U/L (15-37) H Alanine Aminotransferase (ALT/SGPT) 21 U/L (12-78) Alkaline Phosphatase 308 U/L (46-116) H Total Protein 7.3 G/DL (6.4-8.2) Albumin 2.8 G/DL (3.4-5.0) L Globulin 4.5 g/dL Albumin/Globulin Ratio 0.6 (1.0-2.7) L Random Vancomycin Level 15.1 ug/mL Current Medications Medications (Trade) Dose Ordered Sig/Josi Route PRN Reason Start Time Stop Time Status Last Admin Dose Admin Acetaminophen (Tylenol) 650 mg Q4H PRN GT fever 02/25/20 06:30 03/26/20 06:29 03/01/20 12:30 Albuterol/ Ipratropium (Combivent Respimat) 1 puffs Q4H PRN INH Shortness of Breath 02/25/20 06:30 03/26/20 06:29 Atorvastatin Calcium (Lipitor) 10 mg BEDTIME NG 02/25/20 21:00 05/25/20 20:59 03/01/20 22:46 Chlorhexidine Gluconate (Jenny-Hex 2%) 1 applic DAILY@1999 TOPIC 03/01/20 20:00 05/30/20 19:59 03/01/20 22:44 Epoetin Jose Ed Jesus (Epoetin Jose De Jesus(ESRD on dialysis)) 3,000 unit SUN-SUN-SUN SUBQ 02/25/20 21:00 05/25/20 20:59 03/01/20 22:45 Heparin Sodium (Porcine) (Heparin 5000 units/ml) 5,000 units EVERY 12 HOURS SUBQ 02/25/20 09:00 04/10/20 08:59 03/02/20 08:13 Heparin Sodium/ Sodium Chloride (Heparin 1000 units/500ml Premix) 1,000 unit ONCE PRN IV PICC LINE 03/01/20 08:45 03/02/20 23:59 Hydralazine HCl (Apresoline) 10 mg Q4H PRN IV Blood pressure over 160 systol 02/25/20 06:30 05/25/20 06:29 02/29/20 17:03 Hydromorphone HCl (Dilaudid) 0.5 mg Q4H PRN IVP For Pain 02/25/20 06:30 03/03/20 06:29 02/28/20 18:52 Insulin Aspart (NovoLOG) BEFORE MEALS AND HS SUBQ 02/20/20 12:30 05/20/20 12:29 03/01/20 23:21 Labetalol HCl (Normodyne) 20 mg Q1H PRN IV sbp more than 180mmHg 02/25/20 06:30 03/26/20 06:29 Lorazepam (Ativan 2mg/ml 1ml) 2 mg Q2H PRN IV For Anxiety 02/25/20 06:30 03/03/20 06:29 02/25/20 09:13 Ondansetron HCl (Zofran) 4 mg Q6H PRN IVP Nausea & Vomiting 02/25/20 06:30 03/26/20 06:29 Pantoprazole (Protonix) 40 mg Q12HR IVP 02/25/20 09:00 03/26/20 08:59 03/02/20 08:06 Pyridoxine HCl (Vitamin B6) 50 mg DAILY NG 02/25/20 09:00 03/26/20 08:59 03/02/20 08:06 Sevelamer Carbonate (Renvela) 800 mg Q6HR NG 02/25/20 12:00 05/25/20 11:59 03/02/20 05:00 Thiamine HCl 100 mg/Dextrose 56 ml @ 112 mls/hr Q24H IVPB 02/25/20 12:00 03/26/20 11:59 03/01/20 12:07 Vancomycin HCl (Vanco rx to dose) 1 ea DAILY PRN MISC . 02/25/20 06:30 03/26/20 06:29 Vancomycin HCl 1 gm/Dextrose 275 ml @ 183.708 mls/hr ONCE IVPB 03/02/20 16:00 03/02/20 17:00 Clarice Nicolas MD Mar 02, 2020 09:52
--- NOTE | 2020-03-02 10:00 | NUR ---
NURSE NOTES: Pt repositioned, no distress noted. Dr Rivas in the unit discussing care plan, he was made aware that urine appears with sedimentation. No new orders received at this time.
--- NOTE | 2020-03-02 10:56 | Pulmonolgy Critical Care Note ---
Critical Care - Asmt/Plan Problems: (1) COVID-19 virus infection (2) Acute respiratory failure (3) Sepsis (4) ESRD (end stage renal disease) on dialysis (5) Accelerated hypertension (6) Decubital ulcer (7) Pacemaker (8) Diabetes (9) Blindness of both eyes (10) Morbid obesity (11) HTN (hypertension) Respiratory: monitor respiratory rate, adjust FIO2, CXR Cardiac: continue to monitor HR/BP Renal: F/U I&O, keep IV fluid, check electrolytes Infectious Disease: check cultures Gastrointestinal: continue feedings/current rate Endocrine: monitor blood sugar Hematologic: monitor H/H Neurologic: PRN Ativan Prophylaxis: Protonix Time Spent (Minutes): 40 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 Discussed with: nurses Critical Care - Objective Last 24 Hour Vital Signs Date Time Temp Pulse Resp B/P (MAP) Pulse Ox O2 Delivery O2 Flow Rate FiO2 03/02/20 10:00 72 22 188/61 (103) 99 03/02/20 09:21 74 23 30 03/02/20 09:00 79 19 137/68 (91) 98 03/02/20 08:00 Mechanical Ventilator 03/02/20 08:00 30 03/02/20 08:00 98.5 73 22 139/113 (122) 99 03/02/20 07:12 71 18 30 03/02/20 07:05 72 20 146/78 (100) 99 03/02/20 07:00 71 18 182/59 (100) 99 03/02/20 06:30 62 18 03/02/20 06:00 99.5 76 21 152/87 (108) 99 03/02/20 05:01 73 19 30 03/02/20 05:00 100.2 74 18 176/69 (104) 100 03/02/20 04:00 100.6 69 19 146/44 (78) 97 03/02/20 04:00 30 03/02/20 04:00 65 03/02/20 04:00 Mechanical Ventilator 03/02/20 03:00 73 15 146/44 (78) 98 03/02/20 03:00 71 18 30 03/02/20 02:00 67 16 139/49 (79) 97 03/02/20 01:05 71 20 30 03/02/20 01:00 69 20 162/46 (84) 98 03/02/20 00:00 30 03/02/20 00:00 60 03/02/20 00:00 99.4 60 15 154/45 (81) 98 03/02/20 00:00 Mechanical Ventilator 03/01/20 23:29 66 17 30 03/01/20 23:00 61 16 145/49 (81) 99 03/01/20 22:00 63 17 146/53 (84) 99 03/01/20 21:30 61 20 30 03/01/20 21:30 63 15 145/56 (85) 99 03/01/20 21:00 61 14 133/52 (79) 99 03/01/20 20:30 60 16 135/56 (82) 98 03/01/20 20:00 61 16 144/55 (84) 97 03/01/20 20:00 61 03/01/20 20:00 Mechanical Ventilator 03/01/20 20:00 30 03/01/20 19:00 61 22 30 03/01/20 19:00 98.7 60 10 138/46 (76) 97 03/01/20 18:00 61 17 129/48 (75) 97 03/01/20 17:00 63 15 110/52 (71) 100 03/01/20 16:55 60 23 30 03/01/20 16:00 99.4 60 15 128/54 (78) 99 03/01/20 16:00 Mechanical Ventilator 03/01/20 16:00 60 03/01/20 16:00 30 03/01/20 15:00 60 17 30 03/01/20 15:00 60 16 129/52 (77) 100 03/01/20 14:00 60 16 133/47 (75) 99 03/01/20 13:00 60 16 135/51 (79) 99 03/01/20 13:00 100.4 03/01/20 12:43 71 20 30 03/01/20 12:00 60 03/01/20 12:00 100.6 60 16 130/55 (80) 100 03/01/20 12:00 Mechanical Ventilator 03/01/20 12:00 30 03/01/20 11:00 60 16 121/41 (67) 99 Status: awake Condition: improving HEENT: atraumatic Neck: full ROM Lungs: rales, rhonchi Heart: HR/BP stable, regular Abdomen: non-tender, feeding tube Extremities: no C/C/E Accucheck: 106 Critical Care - Subjective ROS Limited/Unobtainable: Yes Condition: critical EKG Rhythm: Sinus Rhythm FI02: 30 Vent Support Breath Rate: 16 Vent Support Mode: AC Vent Tidal Volume: 600 Sputum Amount: Moderate PEEP: 0.0 PIP: 50 Tube Feeding Amount: 35 I&O: Intake and Output 03/01/20 03/02/20 19:00 07:00 Intake Total 526 ml 540 ml Output Total 12 ml 3000 ml Balance 514 ml -2460 ml IV Total 56 ml Tube Feeding 420 ml 420 ml Other 50 ml 120 ml Output Urine Total 10 ml 0 ml Stool Total 2 ml Hemodialysis UF 3000 ml # Bowel Movements 1 1 ET-Tube: 7.5 ET Position: 25 Labs: Laboratory Tests Test 03/02/20 04:00 White Blood Count 7.6 K/UL (4.8-10.8) Red Blood Count 3.94 M/UL (4.20-5.40) L Hemoglobin 9.3 G/DL (12.0-16.0) L Hematocrit 29.2 % (37.0-47.0) L Mean Corpuscular Volume 74 FL (80-99) L Mean Corpuscular Hemoglobin 23.7 PG (27.0-31.0) L Mean Corpuscular Hemoglobin Concent 31.9 G/DL (32.0-36.0) L Red Cell Distribution Width 14.8 % (11.6-14.8) Platelet Count 306 K/UL (150-450) Mean Platelet Volume 6.7 FL (6.5-10.1) Neutrophils (%) (Auto) 66.4 % (45.0-75.0) Lymphocytes (%) (Auto) 17.7 % (20.0-45.0) L Monocytes (%) (Auto) 13.6 % (1.0-10.0) H Eosinophils (%) (Auto) 1.8 % (0.0-3.0) Basophils (%) (Auto) 0.5 % (0.0-2.0) Sodium Level 140 MMOL/L (136-145) Potassium Level 4.0 MMOL/L (3.5-5.1) Chloride Level 98 MMOL/L (98-107) Carbon Dioxide Level 34 MMOL/L (21-32) H Anion Gap 8 mmol/L (5-15) Blood Urea Nitrogen 56 mg/dL (7-18) H Creatinine 6.7 MG/DL (0.55-1.30) H Estimat Glomerular Filtration Rate 7.5 mL/min (>60) Glucose Level 117 MG/DL (74-106) H Uric Acid 3.3 MG/DL (2.6-7.2) Calcium Level 8.8 MG/DL (8.5-10.1) Phosphorus Level 4.5 MG/DL (2.5-4.9) Magnesium Level 2.6 MG/DL (1.8-2.4) H Total Bilirubin 0.6 MG/DL (0.2-1.0) Aspartate Amino Transf (AST/SGOT) 61 U/L (15-37) H Alanine Aminotransferase (ALT/SGPT) 21 U/L (12-78) Alkaline Phosphatase 308 U/L (46-116) H Total Protein 7.3 G/DL (6.4-8.2) Albumin 2.8 G/DL (3.4-5.0) L Globulin 4.5 g/dL Albumin/Globulin Ratio 0.6 (1.0-2.7) L Random Vancomycin Level 15.1 ug/mL Meghana Murillo MD Mar 02, 2020 10:56
[2020-03-02] MEDS: Thiamine HCl 100 MG in D5W 55 ML IVPB SCH (12:26)
--- NOTE | 2020-03-02 12:36 | General Progress Note ---
Assessment/Plan Problem List: (1) Obesity (BMI 30-39.9) ICD Codes: E66.9 - Obesity, unspecified SNOMED: 826633344, 219423756 (2) COVID-19 virus infection ICD Codes: U07.1 - COVID-19 SNOMED: 479772916 (3) Acute respiratory failure ICD Codes: J96.00 - Acute respiratory failure, unspecified whether with hypoxia or hypercapnia SNOMED: 48666080 (4) Blindness of both eyes ICD Codes: H54.0 - Blindness SNOMED: 531408252 (5) ESRD (end stage renal disease) on dialysis ICD Codes: N18.6 - End stage renal disease; Z99.2 - Dependence on renal dialysis SNOMED: 236474258 (6) Anemia ICD Codes: D64.9 - Anemia, unspecified SNOMED: 292909456 (7) Diabetes ICD Codes: E11.9 - Type 2 diabetes mellitus without complications SNOMED: 42503625 (8) AMS (altered mental status) ICD Codes: R41.82 - Altered mental status, unspecified SNOMED: 540157640 Status: unchanged Assessment/Plan: vent abx dialysis cbc bmp am Subjective Constitutional: Reports: weakness Allergies: Coded Allergies: NO KNOWN ALLERGIES (Unverified Allergy, Unknown, 10/15/15) All Systems: reviewed and negative except above Subjective intubated sedated ng in icu Objective Last 24 Hour Vital Signs Date Time Temp Pulse Resp B/P (MAP) Pulse Ox O2 Delivery O2 Flow Rate FiO2 03/02/20 11:10 69 17 30 03/02/20 11:00 73 18 102/59 (73) 99 03/02/20 10:00 72 22 188/61 (103) 99 03/02/20 09:21 74 23 30 03/02/20 09:00 79 19 137/68 (91) 98 03/02/20 08:00 Mechanical Ventilator 03/02/20 08:00 30 03/02/20 08:00 74 03/02/20 08:00 98.5 73 22 139/113 (122) 99 03/02/20 07:12 71 18 30 03/02/20 07:05 72 20 146/78 (100) 99 03/02/20 07:00 71 18 182/59 (100) 99 4/7/20 06:30 62 18 03/02/20 06:00 99.5 76 21 152/87 (108) 99 03/02/20 05:01 73 19 30 03/02/20 05:00 100.2 74 18 176/69 (104) 100 03/02/20 04:00 100.6 69 19 146/44 (78) 97 03/02/20 04:00 30 03/02/20 04:00 65 03/02/20 04:00 Mechanical Ventilator 03/02/20 03:00 73 15 146/44 (78) 98 03/02/20 03:00 71 18 30 03/02/20 02:00 67 16 139/49 (79) 97 03/02/20 01:05 71 20 30 03/02/20 01:00 69 20 162/46 (84) 98 03/02/20 00:00 30 03/02/20 00:00 60 03/02/20 00:00 99.4 60 15 154/45 (81) 98 03/02/20 00:00 Mechanical Ventilator 03/01/20 23:29 66 17 30 03/01/20 23:00 61 16 145/49 (81) 99 03/01/20 22:00 63 17 146/53 (84) 99 03/01/20 21:30 61 20 30 03/01/20 21:30 63 15 145/56 (85) 99 03/01/20 21:00 61 14 133/52 (79) 99 03/01/20 20:30 60 16 135/56 (82) 98 03/01/20 20:00 61 16 144/55 (84) 97 03/01/20 20:00 61 03/01/20 20:00 Mechanical Ventilator 03/01/20 20:00 30 03/01/20 19:00 61 22 30 03/01/20 19:00 98.7 60 10 138/46 (76) 97 03/01/20 18:00 61 17 129/48 (75) 97 03/01/20 17:00 63 15 110/52 (71) 100 03/01/20 16:55 60 23 30 03/01/20 16:00 99.4 60 15 128/54 (78) 99 03/01/20 16:00 Mechanical Ventilator 03/01/20 16:00 60 03/01/20 16:00 30 03/01/20 15:00 60 17 30 03/01/20 15:00 60 16 129/52 (77) 100 03/01/20 14:00 60 16 133/47 (75) 99 03/01/20 13:00 60 16 135/51 (79) 99 03/01/20 13:00 100.4 03/01/20 12:43 71 20 30 Intake and Output 03/01/20 03/02/20 19:00 07:00 Intake Total 526 ml 540 ml Output Total 12 ml 3000 ml Balance 514 ml -2460 ml IV Total 56 ml Tube Feeding 420 ml 420 ml Other 50 ml 120 ml Output Urine Total 10 ml 0 ml Stool Total 2 ml Hemodialysis UF 3000 ml # Bowel Movements 1 1 Laboratory Tests 03/02/20 04:00: White Blood Count 7.6, Red Blood Count 3.94L, Hemoglobin 9.3L, Hematocrit 29.2L , Mean Corpuscular Volume 74L, Mean Corpuscular Hemoglobin 23.7L, Mean Corpuscular Hemoglobin Concent 31.9L, Red Cell Distribution Width 14.8, Platelet Count 306, Mean Platelet Volume 6.7, Neutrophils (%) (Auto) 66.4, Lymphocytes (%) (Auto) 17.7L, Monocytes (%) (Auto) 13.6H, Eosinophils (%) (Auto ) 1.8, Basophils (%) (Auto) 0.5, Sodium Level 140, Potassium Level 4.0, Chloride Level 98, Carbon Dioxide Level 34H, Anion Gap 8, Blood Urea Nitrogen 56H, Creatinine 6.7H, Estimat Glomerular Filtration Rate 7.5, Glucose Level 117H , Uric Acid 3.3, Calcium Level 8.8, Phosphorus Level 4.5, Magnesium Level 2.6H, Total Bilirubin 0.6, Aspartate Amino Transf (AST/SGOT) 61H, Alanine Aminotransferase (ALT/SGPT) 21, Alkaline Phosphatase 308H, Total Protein 7.3, Albumin 2.8L, Globulin 4.5, Albumin/Globulin Ratio 0.6L, Random Vancomycin Level 15.1 Height (Feet): 5 Height (Inches): 7.00 Weight (Pounds): 243 General Appearance: lethargic EENT: normal ENT inspection Neck: normal alignment Cardiovascular: normal rate, regular rhythm Respiratory/Chest: no accessory muscle use Extremities: normal inspection Skin: normal pigmentation Roderick Henning DO Mar 02, 2020 12:36
--- NOTE | 2020-03-02 13:26 | Nephrology Progress Note ---
Assessment/Plan Problem List: (1) Acute respiratory failure (2) ESRD (end stage renal disease) on dialysis (3) UTI (urinary tract infection) (4) Patient is Jew (5) Pacemaker (6) Diabetes (7) Obesity (BMI 30-39.9) Assessment ARDS (adult respiratory distress syndrome) Fever Sepsis UTI (urinary tract infection) Respiratory failure, intubated on ventilator Thrombocytopenia Lymphopenia End stage renal disease on dialysis. Has a right upper arm dialysis fistula as Acces . Getting dialysis Sunday. morbid obesity Anemia / Jehova's witness CAD previous stent HTN- hypertensive urgency upon arrival to [facility]. s/p AVG DM 2 bilateral eye blindness h/o CHF Pacemaker Plan Patient positive for Covid 19 Per ID and pulmonary, ventilator adjustment Last dialyzed March 01, next dialysis March 04 EPO, thiamin and b6 Phos binders NGT feeding per consultants Remains full code at this time Subjective ROS Limited/Unobtainable: Yes Objective Objective Last 24 Hour Vital Signs Date Time Temp Pulse Resp B/P (MAP) Pulse Ox O2 Delivery O2 Flow Rate FiO2 03/02/20 11:10 69 17 30 03/02/20 11:00 73 18 102/59 (73) 99 03/02/20 10:00 72 22 188/61 (103) 99 03/02/20 09:21 74 23 30 03/02/20 09:00 79 19 137/68 (91) 98 03/02/20 08:00 Mechanical Ventilator 03/02/20 08:00 30 03/02/20 08:00 74 03/02/20 08:00 98.5 73 22 139/113 (122) 99 03/02/20 07:12 71 18 30 03/02/20 07:05 72 20 146/78 (100) 99 03/02/20 07:00 71 18 182/59 (100) 99 03/02/20 06:30 62 18 03/02/20 06:00 99.5 76 21 152/87 (108) 99 03/02/20 05:01 73 19 30 03/02/20 05:00 100.2 74 18 176/69 (104) 100 03/02/20 04:00 100.6 69 19 146/44 (78) 97 03/02/20 04:00 30 4/7/20 04:00 65 03/02/20 04:00 Mechanical Ventilator 03/02/20 03:00 73 15 146/44 (78) 98 03/02/20 03:00 71 18 30 03/02/20 02:00 67 16 139/49 (79) 97 03/02/20 01:05 71 20 30 03/02/20 01:00 69 20 162/46 (84) 98 03/02/20 00:00 30 03/02/20 00:00 60 03/02/20 00:00 99.4 60 15 154/45 (81) 98 03/02/20 00:00 Mechanical Ventilator 03/01/20 23:29 66 17 30 03/01/20 23:00 61 16 145/49 (81) 99 03/01/20 22:00 63 17 146/53 (84) 99 03/01/20 21:30 61 20 30 03/01/20 21:30 63 15 145/56 (85) 99 03/01/20 21:00 61 14 133/52 (79) 99 03/01/20 20:30 60 16 135/56 (82) 98 03/01/20 20:00 61 16 144/55 (84) 97 03/01/20 20:00 61 03/01/20 20:00 Mechanical Ventilator 03/01/20 20:00 30 03/01/20 19:00 61 22 30 03/01/20 19:00 98.7 60 10 138/46 (76) 97 03/01/20 18:00 61 17 129/48 (75) 97 03/01/20 17:00 63 15 110/52 (71) 100 03/01/20 16:55 60 23 30 03/01/20 16:00 99.4 60 15 128/54 (78) 99 03/01/20 16:00 Mechanical Ventilator 03/01/20 16:00 60 03/01/20 16:00 30 03/01/20 15:00 60 17 30 03/01/20 15:00 60 16 129/52 (77) 100 03/01/20 14:00 60 16 133/47 (75) 99 Intake and Output 03/01/20 03/02/20 19:00 07:00 Intake Total 526 ml 540 ml Output Total 12 ml 3000 ml Balance 514 ml -2460 ml IV Total 56 ml Tube Feeding 420 ml 420 ml Other 50 ml 120 ml Output Urine Total 10 ml 0 ml Stool Total 2 ml Hemodialysis UF 3000 ml # Bowel Movements 1 1 Current Medications Medications (Trade) Dose Ordered Sig/Josi Route PRN Reason Start Time Stop Time Status Last Admin Dose Admin Acetaminophen (Tylenol) 650 mg Q4H PRN GT fever 02/25/20 06:30 03/26/20 06:29 03/01/20 12:30 Albuterol/ Ipratropium (Combivent Respimat) 1 puffs Q4H PRN INH Shortness of Breath 02/25/20 06:30 03/26/20 06:29 Atorvastatin Calcium (Lipitor) 10 mg BEDTIME NG 02/25/20 21:00 05/25/20 20:59 03/01/20 22:46 Chlorhexidine Gluconate (Jenny-Hex 2%) 1 applic DAILY@1999 TOPIC 03/01/20 20:00 05/30/20 19:59 03/01/20 22:44 Epoetin Jose De Jesus (Epoetin Jose De Jesus(ESRD on dialysis)) 3,000 unit SUN-SUN-SUN SUBQ 02/25/20 21:00 05/25/20 20:59 03/01/20 22:45 Heparin Sodium (Porcine) (Heparin 5000 units/ml) 5,000 units EVERY 12 HOURS SUBQ 02/25/20 09:00 04/10/20 08:59 03/02/20 08:13 Heparin Sodium/ Sodium Chloride (Heparin 1000 units/500ml Premix) 1,000 unit ONCE PRN IV PICC LINE 03/01/20 08:45 03/02/20 23:59 Hydralazine HCl (Apresoline) 10 mg Q4H PRN IV Blood pressure over 160 systol 02/25/20 06:30 05/25/20 06:29 02/29/20 17:03 Hydromorphone HCl (Dilaudid) 0.5 mg Q4H PRN IVP For Pain 02/25/20 06:30 03/03/20 06:29 02/28/20 18:52 Insulin Aspart (NovoLOG) BEFORE MEALS AND HS SUBQ 02/20/20 12:30 05/20/20 12:29 03/02/20 12:25 Labetalol HCl (Normodyne) 20 mg Q1H PRN IV sbp more than 180mmHg 02/25/20 06:30 03/26/20 06:29 Lorazepam (Ativan 2mg/ml 1ml) 2 mg Q2H PRN IV For Anxiety 02/25/20 06:30 03/03/20 06:29 02/25/20 09:13 Ondansetron HCl (Zofran) 4 mg Q6H PRN IVP Nausea & Vomiting 02/25/20 06:30 03/26/20 06:29 Pantoprazole (Protonix) 40 mg Q12HR IVP 02/25/20 09:00 03/26/20 08:59 03/02/20 08:06 Pyridoxine HCl (Vitamin B6) 50 mg DAILY NG 02/25/20 09:00 03/26/20 08:59 03/02/20 08:06 Sevelamer Carbonate (Renvela) 800 mg Q6HR NG 02/25/20 12:00 05/25/20 11:59 03/02/20 12:20 Thiamine HCl 100 mg/Dextrose 56 ml @ 112 mls/hr Q24H IVPB 02/25/20 12:00 03/26/20 11:59 03/02/20 12:26 Vancomycin HCl (Vanco rx to dose) 1 ea DAILY PRN MISC . 02/25/20 06:30 03/26/20 06:29 Vancomycin HCl 1 gm/Dextrose 275 ml @ 183.708 mls/hr ONCE IVPB 03/02/20 16:00 03/02/20 17:00 Laboratory Tests 03/02/20 04:00: White Blood Count 7.6, Red Blood Count 3.94L, Hemoglobin 9.3L, Hematocrit 29.2L , Mean Corpuscular Volume 74L, Mean Corpuscular Hemoglobin 23.7L, Mean Corpuscular Hemoglobin Concent 31.9L, Red Cell Distribution Width 14.8, Platelet Count 306, Mean Platelet Volume 6.7, Neutrophils (%) (Auto) 66.4, Lymphocytes (%) (Auto) 17.7L, Monocytes (%) (Auto) 13.6H, Eosinophils (%) (Auto ) 1.8, Basophils (%) (Auto) 0.5, Sodium Level 140, Potassium Level 4.0, Chloride Level 98, Carbon Dioxide Level 34H, Anion Gap 8, Blood Urea Nitrogen 56H, Creatinine 6.7H, Estimat Glomerular Filtration Rate 7.5, Glucose Level 117H , Uric Acid 3.3, Calcium Level 8.8, Phosphorus Level 4.5, Magnesium Level 2.6H, Total Bilirubin 0.6, Aspartate Amino Transf (AST/SGOT) 61H, Alanine Aminotransferase (ALT/SGPT) 21, Alkaline Phosphatase 308H, Total Protein 7.3, Albumin 2.8L, Globulin 4.5, Albumin/Globulin Ratio 0.6L, Random Vancomycin Level 15.1 Height (Feet): 5 Height (Inches): 7.00 Weight (Pounds): 243 General Appearance: no apparent distress EENT: other - Remains intubated and vented Cardiovascular: normal rate Respiratory/Chest: decreased breath sounds Abdomen: distended Bryan Hunter MD Mar 02, 2020 13:25
--- NOTE | 2020-03-02 13:52 | NUR ---
NURSE NOTES: Spoke with Dwayne from [facility] Nephrology to schedule HD session for 03/04/20- HD RN (Ronen) to call back.
--- NOTE | 2020-03-02 14:00 | NUR ---
NURSE NOTES: Per Dr Murillo, attempt to wean pt tomorrow morning.
--- NOTE | 2020-03-02 15:44 | Cardiology Progress Note ---
Assessment/Plan Assessment/Plan 1. Respiratory failure. 2. History of obesity hypoventilation syndrome. 3. History of pulmonary hypertension previously. 4. Urinary tract infection. 5. covid 19 infection confimred 6. pneumonia. 7. History of bacteremia with Staph epi recently on 02/05/2020. i did not examine pt personally i did not feel the risk to me personally are worth the limited information that could be obtained while pt is not communicative and on a vent with confirmed covid 19 tele reviewed sinus atrial paced d/w rn saturation arer ok has thick secretion but strong cough per rn no fever no diarrhea but sof stool sats are 99- 100% on 30% fio2 on abx holding off in ordering echo at this time due to active covid 19 infecion all labs reviewed s/p dialysis yes 3 liter removed to start weaning tomorrow bp readings are performed on the left leg adn accuracy in question , i woudl expect higer reading in lower ext anyway Subjective ROS Limited/Unobtainable: Yes Objective Last 24 Hour Vital Signs Date Time Temp Pulse Resp B/P (MAP) Pulse Ox O2 Delivery O2 Flow Rate FiO2 03/02/20 14:00 66 17 173/74 (107) 100 03/02/20 13:00 66 16 30 03/02/20 13:00 67 17 155/71 (99) 100 03/02/20 12:00 70 03/02/20 12:00 Mechanical Ventilator 03/02/20 12:00 97.7 71 24 120/106 (111) 100 03/02/20 12:00 30 03/02/20 11:10 69 17 30 03/02/20 11:00 73 18 102/59 (73) 99 03/02/20 10:00 72 22 188/61 (103) 99 03/02/20 09:21 74 23 30 03/02/20 09:00 79 19 137/68 (91) 98 03/02/20 08:00 Mechanical Ventilator 03/02/20 08:00 30 03/02/20 08:00 74 03/02/20 08:00 98.5 73 22 139/113 (122) 99 03/02/20 07:12 71 18 30 03/02/20 07:05 72 20 146/78 (100) 99 03/02/20 07:00 71 18 182/59 (100) 99 03/02/20 06:30 62 18 03/02/20 06:00 99.5 76 21 152/87 (108) 99 03/02/20 05:01 73 19 30 03/02/20 05:00 100.2 74 18 176/69 (104) 100 03/02/20 04:00 100.6 69 19 146/44 (78) 97 03/02/20 04:00 30 03/02/20 04:00 65 03/02/20 04:00 Mechanical Ventilator 03/02/20 03:00 73 15 146/44 (78) 98 03/02/20 03:00 71 18 30 03/02/20 02:00 67 16 139/49 (79) 97 03/02/20 01:05 71 20 30 03/02/20 01:00 69 20 162/46 (84) 98 03/02/20 00:00 30 03/02/20 00:00 60 03/02/20 00:00 99.4 60 15 154/45 (81) 98 03/02/20 00:00 Mechanical Ventilator 03/01/20 23:29 66 17 30 03/01/20 23:00 61 16 145/49 (81) 99 03/01/20 22:00 63 17 146/53 (84) 99 03/01/20 21:30 61 20 30 03/01/20 21:30 63 15 145/56 (85) 99 03/01/20 21:00 61 14 133/52 (79) 99 03/01/20 20:30 60 16 135/56 (82) 98 03/01/20 20:00 61 16 144/55 (84) 97 03/01/20 20:00 61 03/01/20 20:00 Mechanical Ventilator 03/01/20 20:00 30 03/01/20 19:00 61 22 30 03/01/20 19:00 98.7 60 10 138/46 (76) 97 03/01/20 18:00 61 17 129/48 (75) 97 03/01/20 17:00 63 15 110/52 (71) 100 03/01/20 16:55 60 23 30 03/01/20 16:00 99.4 60 15 128/54 (78) 99 03/01/20 16:00 Mechanical Ventilator 03/01/20 16:00 60 03/01/20 16:00 30 General Appearance: no apparent distress, on vent, patient on isolation, isolation precautions Intake and Output 03/01/20 03/02/20 19:00 07:00 Intake Total 526 ml 540 ml Output Total 12 ml 3000 ml Balance 514 ml -2460 ml IV Total 56 ml Tube Feeding 420 ml 420 ml Other 50 ml 120 ml Output Urine Total 10 ml 0 ml Stool Total 2 ml Hemodialysis UF 3000 ml # Bowel Movements 1 1 Laboratory Tests Test 03/02/20 04:00 White Blood Count 7.6 K/UL (4.8-10.8) Red Blood Count 3.94 M/UL (4.20-5.40) L Hemoglobin 9.3 G/DL (12.0-16.0) L Hematocrit 29.2 % (37.0-47.0) L Mean Corpuscular Volume 74 FL (80-99) L Mean Corpuscular Hemoglobin 23.7 PG (27.0-31.0) L Mean Corpuscular Hemoglobin Concent 31.9 G/DL (32.0-36.0) L Red Cell Distribution Width 14.8 % (11.6-14.8) Platelet Count 306 K/UL (150-450) Mean Platelet Volume 6.7 FL (6.5-10.1) Neutrophils (%) (Auto) 66.4 % (45.0-75.0) Lymphocytes (%) (Auto) 17.7 % (20.0-45.0) L Monocytes (%) (Auto) 13.6 % (1.0-10.0) H Eosinophils (%) (Auto) 1.8 % (0.0-3.0) Basophils (%) (Auto) 0.5 % (0.0-2.0) Sodium Level 140 MMOL/L (136-145) Potassium Level 4.0 MMOL/L (3.5-5.1) Chloride Level 98 MMOL/L (98-107) Carbon Dioxide Level 34 MMOL/L (21-32) H Anion Gap 8 mmol/L (5-15) Blood Urea Nitrogen 56 mg/dL (7-18) H Creatinine 6.7 MG/DL (0.55-1.30) H Estimat Glomerular Filtration Rate 7.5 mL/min (>60) Glucose Level 117 MG/DL (74-106) H Uric Acid 3.3 MG/DL (2.6-7.2) Calcium Level 8.8 MG/DL (8.5-10.1) Phosphorus Level 4.5 MG/DL (2.5-4.9) Magnesium Level 2.6 MG/DL (1.8-2.4) H Total Bilirubin 0.6 MG/DL (0.2-1.0) Aspartate Amino Transf (AST/SGOT) 61 U/L (15-37) H Alanine Aminotransferase (ALT/SGPT) 21 U/L (12-78) Alkaline Phosphatase 308 U/L (46-116) H Total Protein 7.3 G/DL (6.4-8.2) Albumin 2.8 G/DL (3.4-5.0) L Globulin 4.5 g/dL Albumin/Globulin Ratio 0.6 (1.0-2.7) L Random Vancomycin Level 15.1 ug/mL Wilfredo Reyna MD Mar 02, 2020 15:44
[2020-03-02] MEDS ORDERED: Vancomycin 1gm in D5W 275ml IVPB SCH (16:00)
--- NOTE | 2020-03-02 16:00 | NUR ---
NURSE NOTES: Pt repositioned, oral care provided, no distress noted, 1 BM noted and pt cleaned. Will continue to monitor. Dr Padilla also came in to see pt and discussed care plan with me.
--- NOTE | 2020-03-02 16:30 | NUR ---
Dr Reyna at bedside assessing pt, made aware of pt's BP trends this morning, he was also made aware that BP cuff is located around left calf. No new orders at this time, continue to monitor pt. Pt in no acute distress.
--- NOTE | 2020-03-02 18:00 | NUR ---
NURSE NOTES: Pt repositioned, BM noted, pt cleaned, no distress noted, 2 units insulin Novolog given subcut for BG of 121. Will continue to monitor.
--- NOTE | 2020-03-02 19:30 | NUR ---
NURSE NOTES: Received pt resting well. Orally intubated on ac mode A paced vs NSR on the monitor. Bp stable afebrile, Bilateral soft wrist restraints on maintained for safety to avoid self extubation,- Will continue to monitor.
--- NOTE | 2020-03-02 19:54 | NUR ---
HAND-OFF: Report given to NATHALIA Farley.
[2020-03-02] MEDS: Dyna-Hex 2% Top Sol 2oz TOPIC SCH (20:31)
--- NOTE | 2020-03-02 21:30 | NUR ---
NURSE NOTES: Pt had soft browish stool, cleaned up pt. Accucheck 88. No insulin needed.
[2020-03-03] VITALS (27 sets, daily range): BP systolic 96–164; BP diastolic 25–145
--- NOTE | 2020-03-03 | NUR ---
NURSE NOTES: suctioned tn whitish secretions moderate in amt. HOB kept elevated. Watch for any resp, distress,
[2020-03-03 05:33] LABS: BASOPHILS % (AUTO) 0.7 % (0.0-2.0); EOSINOPHILS % (AUTO) 5.1 % (0.0-3.0); HEMATOCRIT 27.6 % (37.0-47.0); HEMOGLOBIN 8.7 G/DL (12.0-16.0); LYMPHOCYTES % (AUTO) 17.7 % (20.0-45.0); MEAN CORPUSCULAR VOLUME 75 FL (80-99); MONOCYTES % (AUTO) 13.1 % (1.0-10.0); NEUTROPHILS % (AUTO) 63.5 % (45.0-75.0); PLATELET COUNT 298 K/UL (150-450); RED BLOOD COUNT 3.69 M/UL (4.20-5.40); RED CELL DISTRIBUTION WIDTH 14.8 % (11.6-14.8); WHITE BLOOD COUNT 8.1 K/UL (4.8-10.8)
[2020-03-03] MEDS: Renvela 800mg Pkt NG SCH ×4 (06:00→23:50)
[2020-03-03 06:03] LABS: ANION GAP 9 mmol/L (5-15); BLOOD UREA NITROGEN 71 mg/dL (7-18); CALCIUM 8.2 MG/DL (8.5-10.1); CARBON DIOXIDE 31 MMOL/L (21-32); CHLORIDE 99 MMOL/L (98-107); CREATININE 7.8 MG/DL (0.55-1.30); POTASSIUM 4.2 MMOL/L (3.5-5.1); SODIUM 139 MMOL/L (136-145)
[2020-03-03] MEDS: NovoLOG Insulin Flexpen SUBQ SCH ×3 (06:30→17:29)
--- NOTE | 2020-03-03 07:46 | NUR ---
HAND-OFF: Report given to Bryce SLOAN.
--- NOTE | 2020-03-03 07:47 | NUR ---
NURSE NOTES: Report received from NATHALIA Hunter. Pt is sleeping in bed. Easily able to wake up and move extremities. Oriented x1-2. Lethargic. Compulsive at times. On bilateral soft wrist restraints. A-paced on hall monitor. ETT 7.5/25cm at lip line. AC 16, TV 600, FiO2 30%. O2 sat 96-99%. Small amount of white clear thick secretion noted from ETT. OGT in place receiving Nepro at 35cc/hr. No residual noted. ALEXIS PICC line in place, patent and asymptomatic. Bed in lowest position. Side rails up x3. Continued airborne, droplet, and contact precaution for Covid 19+. Will resume plan of care.
--- NOTE | 2020-03-03 07:48 | NUR ---
NURSE NOTES: Right upper arm AV shunt for HD noted. Bruits and thrills noted. Spoke with dialysis nurse for the HD order for tomorrow.
--- NOTE | 2020-03-03 08:50 | Infectious Diseases Prog Note ---
Assessment/Plan Assessment/Plan The patient is a 64-year-old female with Confirmed COVID-19. SARS-CoV PCR positive. Pneumonia No leukocytosis Fever, recurrent - likely 2/2 COVID, less likely active bacterial superinfection since pt just completed empiric course of antibacterial therapy and sputum cx NG - 03/01 CXR: Worsening bilateral hazy parenchymal infiltrates, versus edema - 02/20 CXR: Mild pulmonary vascular congestion with subtle bilateral haziness, not significantly changed.Possible tiny pleural effusions. Cardiomegaly. - Bcx ngtd - sp cx normal gui Less likely UTI u/a wbc tnct, nit +, leuk +3; ucx cindy(colonizer) Hx of positive blood culture CONS ,persistent 02/04 BCx: CoNS 01/30 Bc: (1/2)CoNS and Citrobacter 01/27 , 02/01 Bc: CoNS - (outside facility, # of the +ve cultures are not clear) A 2D echo from outside facility did not show any evidence of vegetation as per Carido pt is high risk for CLAY: ( last admission ) Diabetes. CHF. ESRD. Hypertension. Obesity. PLAN: continue the patient on vancomycin, day # ? 37/ ( will Rx for probable SBE) 02/27 SP plaquenil+azithromycin #5 / SP Ertapenem #8 02/24 DC amikacin #6 Monitor CBC. Monitor BMP. Monitor cultures (blood, Sp ) Airborne. Contact plus Isolation JAE RN Subjective Allergies: Coded Allergies: NO KNOWN ALLERGIES (Unverified Allergy, Unknown, 10/15/15) Subjective Afebrile. FiO2 30% No leukocytosis No levophed Objective Vital Signs Last 24 Hour Vital Signs Date Time Temp Pulse Resp B/P (MAP) Pulse Ox O2 Delivery O2 Flow Rate FiO2 03/03/20 07:49 63 16 30 03/03/20 06:30 63 18 03/03/20 06:00 66 21 144/70 (94) 100 03/03/20 05:16 82 20 30 03/03/20 05:00 61 19 104/84 (91) 98 03/03/20 04:00 60 03/03/20 04:00 30 03/03/20 04:00 Mechanical Ventilator 03/03/20 04:00 98.0 60 16 96/34 (54) 98 03/03/20 03:00 60 15 153/35 (74) 97 03/03/20 03:00 61 11 128/70 (89) 99 03/03/20 02:46 75 17 30 03/03/20 02:00 60 15 150/45 (80) 98 03/03/20 01:29 78 18 30 03/03/20 01:00 60 15 153/35 (74) 97 03/03/20 00:00 Mechanical Ventilator 03/03/20 00:00 30 03/03/20 00:00 63 03/03/20 00:00 97.8 61 15 109/44 (65) 97 03/03/20 00:00 62 03/03/20 00:00 30 03/02/20 23:00 61 16 144/55 (84) 100 03/02/20 22:40 72 22 30 03/02/20 22:00 67 18 119/53 (75) 100 03/02/20 21:00 66 20 144/47 (79) 100 03/02/20 20:50 79 19 30 03/02/20 20:00 98.0 67 22 157/43 (81) 100 03/02/20 20:00 30 03/02/20 20:00 64 03/02/20 20:00 Mechanical Ventilator 03/02/20 19:30 140/50 (80) 03/02/20 19:14 74 18 30 03/02/20 19:00 68 20 155/100 (118) 100 03/02/20 18:00 67 16 160/51 (87) 99 03/02/20 17:00 61 16 147/45 (79) 100 03/02/20 16:56 67 16 30 03/02/20 16:00 30 03/02/20 16:00 97.5 64 18 177/60 (99) 100 03/02/20 16:00 67 03/02/20 16:00 Mechanical Ventilator 03/02/20 15:00 66 18 161/78 (105) 100 03/02/20 14:00 66 17 173/74 (107) 100 03/02/20 13:00 66 16 30 03/02/20 13:00 67 17 155/71 (99) 100 03/02/20 12:00 70 03/02/20 12:00 Mechanical Ventilator 03/02/20 12:00 97.7 71 24 120/106 (111) 100 03/02/20 12:00 30 03/02/20 11:10 69 17 30 03/02/20 11:00 73 18 102/59 (73) 99 03/02/20 10:00 72 22 188/61 (103) 99 03/02/20 09:21 74 23 30 03/02/20 09:00 79 19 137/68 (91) 98 Height (Feet): 5 Height (Inches): 7.00 Weight (Pounds): 247 Objective General Appearance: no acute distress. well nourished. HEENT: normocephalic, atraumatic Respiratory/Chest: no respiratory distress, no accessory muscle use, equal chest rise Abdomen: non distended. Tyler with sediments Neuro: awake. moving extremities Laboratory Tests Test 03/03/20 05:00 White Blood Count 8.1 K/UL (4.8-10.8) Red Blood Count 3.69 M/UL (4.20-5.40) L Hemoglobin 8.7 G/DL (12.0-16.0) L Hematocrit 27.6 % (37.0-47.0) L Mean Corpuscular Volume 75 FL (80-99) L Mean Corpuscular Hemoglobin 23.6 PG (27.0-31.0) L Mean Corpuscular Hemoglobin Concent 31.6 G/DL (32.0-36.0) L Red Cell Distribution Width 14.8 % (11.6-14.8) Platelet Count 298 K/UL (150-450) Mean Platelet Volume 6.4 FL (6.5-10.1) L Neutrophils (%) (Auto) 63.5 % (45.0-75.0) Lymphocytes (%) (Auto) 17.7 % (20.0-45.0) L Monocytes (%) (Auto) 13.1 % (1.0-10.0) H Eosinophils (%) (Auto) 5.1 % (0.0-3.0) H Basophils (%) (Auto) 0.7 % (0.0-2.0) Sodium Level 139 MMOL/L (136-145) Potassium Level 4.2 MMOL/L (3.5-5.1) Chloride Level 99 MMOL/L (98-107) Carbon Dioxide Level 31 MMOL/L (21-32) Anion Gap 9 mmol/L (5-15) Blood Urea Nitrogen 71 mg/dL (7-18) H Creatinine 7.8 MG/DL (0.55-1.30) H Estimat Glomerular Filtration Rate 6.4 mL/min (>60) Glucose Level 109 MG/DL (74-106) H Calcium Level 8.2 MG/DL (8.5-10.1) L Current Medications Medications (Trade) Dose Ordered Sig/Josi Route PRN Reason Start Time Stop Time Status Last Admin Dose Admin Acetaminophen (Tylenol) 650 mg Q4H PRN GT fever 02/25/20 06:30 03/26/20 06:29 03/01/20 12:30 Albuterol/ Ipratropium (Combivent Respimat) 1 puffs Q4H PRN INH Shortness of Breath 02/25/20 06:30 03/26/20 06:29 Atorvastatin Calcium (Lipitor) 10 mg BEDTIME NG 02/25/20 21:00 05/25/20 20:59 03/02/20 20:45 Chlorhexidine Gluconate (Jenny-Hex 2%) 1 applic DAILY@1999 TOPIC 03/01/20 20:00 05/30/20 19:59 03/02/20 20:31 Epoetin Jose De Jesus (Epoetin Jose De Jesus(ESRD on dialysis)) 3,000 unit SUN-SUN-SUN SUBQ 02/25/20 21:00 05/25/20 20:59 03/01/20 22:45 Heparin Sodium (Porcine) (Heparin 5000 units/ml) 5,000 units EVERY 12 HOURS SUBQ 02/25/20 09:00 04/10/20 08:59 03/02/20 20:46 Hydralazine HCl (Apresoline) 10 mg Q4H PRN IV Blood pressure over 160 systol 02/25/20 06:30 05/25/20 06:29 02/29/20 17:03 Insulin Aspart (NovoLOG) Q6HR SUBQ 03/03/20 12:00 05/20/20 12:29 Labetalol HCl (Normodyne) 20 mg Q1H PRN IV sbp more than 180mmHg 02/25/20 06:30 03/26/20 06:29 Ondansetron HCl (Zofran) 4 mg Q6H PRN IVP Nausea & Vomiting 02/25/20 06:30 03/26/20 06:29 Pantoprazole (Protonix) 40 mg Q12HR IVP 02/25/20 09:00 03/26/20 08:59 03/02/20 20:44 Pyridoxine HCl (Vitamin B6) 50 mg DAILY NG 02/25/20 09:00 03/26/20 08:59 03/02/20 08:06 Sevelamer Carbonate (Renvela) 800 mg Q6HR NG 02/25/20 12:00 05/25/20 11:59 03/03/20 06:00 Thiamine HCl 100 mg/Dextrose 56 ml @ 112 mls/hr Q24H IVPB 02/25/20 12:00 03/26/20 11:59 03/02/20 12:26 Vancomycin HCl (Vanco rx to dose) 1 ea DAILY PRN MISC . 02/25/20 06:30 03/26/20 06:29 Clarice Nicolas MD Mar 03, 2020 08:50
[2020-03-03] MEDS: Pantoprazole Inj IVP SCH ×2 (09:34→21:29)
[2020-03-03] MEDS: Heparin 5000 units/ml inj SUBQ SCH ×2 (09:35→21:33)
[2020-03-03] MEDS: Pyridoxine 50mg tab NG SCH (09:35)
--- NOTE | 2020-03-03 09:36 | General Progress Note ---
Assessment/Plan Problem List: (1) Obesity (BMI 30-39.9) ICD Codes: E66.9 - Obesity, unspecified SNOMED: 772916875, 796518667 (2) COVID-19 virus infection ICD Codes: U07.1 - COVID-19 SNOMED: 012336776 (3) Acute respiratory failure ICD Codes: J96.00 - Acute respiratory failure, unspecified whether with hypoxia or hypercapnia SNOMED: 93016377 (4) Blindness of both eyes ICD Codes: H54.0 - Blindness SNOMED: 334280621 (5) ESRD (end stage renal disease) on dialysis ICD Codes: N18.6 - End stage renal disease; Z99.2 - Dependence on renal dialysis SNOMED: 162368506 (6) Anemia ICD Codes: D64.9 - Anemia, unspecified SNOMED: 153091831 (7) Diabetes ICD Codes: E11.9 - Type 2 diabetes mellitus without complications SNOMED: 49697376 (8) AMS (altered mental status) ICD Codes: R41.82 - Altered mental status, unspecified SNOMED: 164845163 Status: unchanged Assessment/Plan: vent abx dialysis cbc bmp am Subjective Allergies: Coded Allergies: NO KNOWN ALLERGIES (Unverified Allergy, Unknown, 10/15/15) All Systems: reviewed and negative except above Subjective intubated sedated ng in icu Objective Last 24 Hour Vital Signs Date Time Temp Pulse Resp B/P (MAP) Pulse Ox O2 Delivery O2 Flow Rate FiO2 03/03/20 07:49 63 16 30 03/03/20 06:30 63 18 03/03/20 06:00 66 21 144/70 (94) 100 03/03/20 05:16 82 20 30 03/03/20 05:00 61 19 104/84 (91) 98 03/03/20 04:00 60 03/03/20 04:00 30 03/03/20 04:00 Mechanical Ventilator 03/03/20 04:00 98.0 60 16 96/34 (54) 98 03/03/20 03:00 60 15 153/35 (74) 97 03/03/20 03:00 61 11 128/70 (89) 99 03/03/20 02:46 75 17 30 03/03/20 02:00 60 15 150/45 (80) 98 03/03/20 01:29 78 18 30 03/03/20 01:00 60 15 153/35 (74) 97 03/03/20 00:00 Mechanical Ventilator 03/03/20 00:00 30 03/03/20 00:00 63 03/03/20 00:00 97.8 61 15 109/44 (65) 97 03/03/20 00:00 62 03/03/20 00:00 30 03/02/20 23:00 61 16 144/55 (84) 100 03/02/20 22:40 72 22 30 03/02/20 22:00 67 18 119/53 (75) 100 03/02/20 21:00 66 20 144/47 (79) 100 03/02/20 20:50 79 19 30 03/02/20 20:00 98.0 67 22 157/43 (81) 100 03/02/20 20:00 30 03/02/20 20:00 64 03/02/20 20:00 Mechanical Ventilator 03/02/20 19:30 140/50 (80) 03/02/20 19:14 74 18 30 03/02/20 19:00 68 20 155/100 (118) 100 03/02/20 18:00 67 16 160/51 (87) 99 03/02/20 17:00 61 16 147/45 (79) 100 03/02/20 16:56 67 16 30 03/02/20 16:00 30 03/02/20 16:00 97.5 64 18 177/60 (99) 100 03/02/20 16:00 67 03/02/20 16:00 Mechanical Ventilator 03/02/20 15:00 66 18 161/78 (105) 100 03/02/20 14:00 66 17 173/74 (107) 100 03/02/20 13:00 66 16 30 03/02/20 13:00 67 17 155/71 (99) 100 03/02/20 12:00 70 03/02/20 12:00 Mechanical Ventilator 03/02/20 12:00 97.7 71 24 120/106 (111) 100 03/02/20 12:00 30 03/02/20 11:10 69 17 30 03/02/20 11:00 73 18 102/59 (73) 99 03/02/20 10:00 72 22 188/61 (103) 99 Intake and Output 03/02/20 03/03/20 19:00 07:00 Intake Total 536 ml 510 ml Output Total 90 ml 20 ml Balance 446 ml 490 ml Intake Free Water 60 ml 90 ml IV Total 56 ml Tube Feeding 420 ml 420 ml Output Urine Total 90 ml 20 ml # Bowel Movements 5 7 Laboratory Tests 03/03/20 05:00: White Blood Count 8.1, Red Blood Count 3.69L, Hemoglobin 8.7L, Hematocrit 27.6L , Mean Corpuscular Volume 75L, Mean Corpuscular Hemoglobin 23.6L, Mean Corpuscular Hemoglobin Concent 31.6L, Red Cell Distribution Width 14.8, Platelet Count 298, Mean Platelet Volume 6.4L, Neutrophils (%) (Auto) 63.5, Lymphocytes (%) (Auto) 17.7L, Monocytes (%) (Auto) 13.1H, Eosinophils (%) (Auto ) 5.1H, Basophils (%) (Auto) 0.7, Sodium Level 139, Potassium Level 4.2, Chloride Level 99, Carbon Dioxide Level 31, Anion Gap 9, Blood Urea Nitrogen 71H , Creatinine 7.8H, Estimat Glomerular Filtration Rate 6.4, Glucose Level 109H, Calcium Level 8.2L Height (Feet): 5 Height (Inches): 7.00 Weight (Pounds): 247 General Appearance: lethargic EENT: normal ENT inspection Neck: normal alignment Cardiovascular: normal rate, regular rhythm Extremities: normal inspection Skin: normal pigmentation Roderick Henning DO Mar 03, 2020 09:36
--- NOTE | 2020-03-03 10:06 | NUR ---
NURSE NOTES: Dr Murillo here to see the patient. Updated him with pt's current condition. Awaiting new orders. Turned and repositioned pt. Continued bilateral soft wrist restraints. Will continue to monitor.
--- NOTE | 2020-03-03 10:06 | Pulmonolgy Critical Care Note ---
Critical Care - Asmt/Plan Problems: (1) COVID-19 virus infection (2) Acute respiratory failure (3) Sepsis (4) ESRD (end stage renal disease) on dialysis (5) Accelerated hypertension (6) Decubital ulcer (7) Pacemaker (8) Diabetes (9) Blindness of both eyes (10) Morbid obesity (11) HTN (hypertension) Respiratory: monitor respiratory rate, adjust FIO2, CXR, weaning trial Cardiac: continue to monitor HR/BP Renal: F/U I&O, check electrolytes, other - HD by nephrology Infectious Disease: check cultures, continue antibiotics Gastrointestinal: continue feedings/current rate, other - tolerating well Endocrine: monitor blood sugar Hematologic: monitor H/H, transfuse if hgb<8.5 Neurologic: PRN Ativan, keep patient comfortable Affect: PRN ativan Disposition: keep in ICU Notes Reviewed: cardiovascular technologist Discussed with: nurses, consultants, nurse case managercath lab manager - Objective Last 24 Hour Vital Signs Date Time Temp Pulse Resp B/P (MAP) Pulse Ox O2 Delivery O2 Flow Rate FiO2 03/03/20 07:49 63 16 30 03/03/20 06:30 63 18 03/03/20 06:00 66 21 144/70 (94) 100 03/03/20 05:16 82 20 30 03/03/20 05:00 61 19 104/84 (91) 98 03/03/20 04:00 60 03/03/20 04:00 30 03/03/20 04:00 Mechanical Ventilator 03/03/20 04:00 98.0 60 16 96/34 (54) 98 03/03/20 03:00 60 15 153/35 (74) 97 03/03/20 03:00 61 11 128/70 (89) 99 03/03/20 02:46 75 17 30 03/03/20 02:00 60 15 150/45 (80) 98 03/03/20 01:29 78 18 30 03/03/20 01:00 60 15 153/35 (74) 97 03/03/20 00:00 Mechanical Ventilator 03/03/20 00:00 30 03/03/20 00:00 63 03/03/20 00:00 97.8 61 15 109/44 (65) 97 03/03/20 00:00 62 03/03/20 00:00 30 03/02/20 23:00 61 16 144/55 (84) 100 03/02/20 22:40 72 22 30 03/02/20 22:00 67 18 119/53 (75) 100 03/02/20 21:00 66 20 144/47 (79) 100 03/02/20 20:50 79 19 30 03/02/20 20:00 98.0 67 22 157/43 (81) 100 03/02/20 20:00 30 03/02/20 20:00 64 03/02/20 20:00 Mechanical Ventilator 03/02/20 19:30 140/50 (80) 03/02/20 19:14 74 18 30 03/02/20 19:00 68 20 155/100 (118) 100 03/02/20 18:00 67 16 160/51 (87) 99 03/02/20 17:00 61 16 147/45 (79) 100 03/02/20 16:56 67 16 30 03/02/20 16:00 30 03/02/20 16:00 97.5 64 18 177/60 (99) 100 03/02/20 16:00 67 03/02/20 16:00 Mechanical Ventilator 03/02/20 15:00 66 18 161/78 (105) 100 03/02/20 14:00 66 17 173/74 (107) 100 03/02/20 13:00 66 16 30 03/02/20 13:00 67 17 155/71 (99) 100 03/02/20 12:00 70 03/02/20 12:00 Mechanical Ventilator 03/02/20 12:00 97.7 71 24 120/106 (111) 100 03/02/20 12:00 30 03/02/20 11:10 69 17 30 03/02/20 11:00 73 18 102/59 (73) 99 Status: awake Condition: critical, improving Neck: full ROM Lungs: rales, rhonchi Heart: HR/BP stable Abdomen: soft, non-tender, feeding tube Extremities: no C/C/E, edema Decubiti: stage Accucheck: 98 Critical Care - Subjective ROS Limited/Unobtainable: Yes Condition: critical EKG Rhythm: Sinus Rhythm FI02: 30 Vent Support Breath Rate: 16 Vent Support Mode: AC Vent Tidal Volume: 600 Sputum Amount: Moderate PEEP: 0.0 PIP: 24 Tube Feeding Amount: 35 I&O: Intake and Output 03/02/20 03/03/20 19:00 07:00 Intake Total 536 ml 510 ml Output Total 90 ml 20 ml Balance 446 ml 490 ml Intake Free Water 60 ml 90 ml IV Total 56 ml Tube Feeding 420 ml 420 ml Output Urine Total 90 ml 20 ml # Bowel Movements 5 7 ET-Tube: 7.5 ET Position: 25 Labs: Laboratory Tests Test 03/03/20 05:00 White Blood Count 8.1 K/UL (4.8-10.8) Red Blood Count 3.69 M/UL (4.20-5.40) L Hemoglobin 8.7 G/DL (12.0-16.0) L Hematocrit 27.6 % (37.0-47.0) L Mean Corpuscular Volume 75 FL (80-99) L Mean Corpuscular Hemoglobin 23.6 PG (27.0-31.0) L Mean Corpuscular Hemoglobin Concent 31.6 G/DL (32.0-36.0) L Red Cell Distribution Width 14.8 % (11.6-14.8) Platelet Count 298 K/UL (150-450) Mean Platelet Volume 6.4 FL (6.5-10.1) L Neutrophils (%) (Auto) 63.5 % (45.0-75.0) Lymphocytes (%) (Auto) 17.7 % (20.0-45.0) L Monocytes (%) (Auto) 13.1 % (1.0-10.0) H Eosinophils (%) (Auto) 5.1 % (0.0-3.0) H Basophils (%) (Auto) 0.7 % (0.0-2.0) Sodium Level 139 MMOL/L (136-145) Potassium Level 4.2 MMOL/L (3.5-5.1) Chloride Level 99 MMOL/L (98-107) Carbon Dioxide Level 31 MMOL/L (21-32) Anion Gap 9 mmol/L (5-15) Blood Urea Nitrogen 71 mg/dL (7-18) H Creatinine 7.8 MG/DL (0.55-1.30) H Estimat Glomerular Filtration Rate 6.4 mL/min (>60) Glucose Level 109 MG/DL (74-106) H Calcium Level 8.2 MG/DL (8.5-10.1) L Meghana Murillo MD Mar 03, 2020 10:06
--- NOTE | 2020-03-03 10:20 | Nephrology Progress Note ---
Assessment/Plan Problem List: (1) Acute respiratory failure (2) ESRD (end stage renal disease) on dialysis (3) UTI (urinary tract infection) (4) Patient is [employer] (5) Pacemaker (6) Diabetes (7) Obesity (BMI 30-39.9) Assessment ARDS (adult respiratory distress syndrome) Fever Sepsis UTI (urinary tract infection) Respiratory failure, intubated on ventilator Thrombocytopenia Lymphopenia End stage renal disease on dialysis. Has a right upper arm dialysis fistula as Acces . Getting dialysis Sunday. morbid obesity Anemia / Jehova's witness CAD previous stent HTN- hypertensive urgency upon arrival to [facility]. s/p AVG DM 2 bilateral eye blindness h/o CHF Pacemaker Plan Patient positive for Covid 19 Per ID and pulmonary, ventilator adjustment Last dialyzed March 01, next dialysis March 04 EPO, thiamin and b6 Phos binders NGT feeding per consultants Remains full code at this time Subjective ROS Limited/Unobtainable: Yes Objective Objective Last 24 Hour Vital Signs Date Time Temp Pulse Resp B/P (MAP) Pulse Ox O2 Delivery O2 Flow Rate FiO2 03/03/20 07:49 63 16 30 03/03/20 06:30 63 18 03/03/20 06:00 66 21 144/70 (94) 100 03/03/20 05:16 82 20 30 03/03/20 05:00 61 19 104/84 (91) 98 03/03/20 04:00 60 03/03/20 04:00 30 03/03/20 04:00 Mechanical Ventilator 03/03/20 04:00 98.0 60 16 96/34 (54) 98 03/03/20 03:00 60 15 153/35 (74) 97 03/03/20 03:00 61 11 128/70 (89) 99 03/03/20 02:46 75 17 30 03/03/20 02:00 60 15 150/45 (80) 98 03/03/20 01:29 78 18 30 03/03/20 01:00 60 15 153/35 (74) 97 03/03/20 00:00 Mechanical Ventilator 03/03/20 00:00 30 03/03/20 00:00 63 03/03/20 00:00 97.8 61 15 109/44 (65) 97 03/03/20 00:00 62 03/03/20 00:00 30 03/02/20 23:00 61 16 144/55 (84) 100 03/02/20 22:40 72 22 30 03/02/20 22:00 67 18 119/53 (75) 100 03/02/20 21:00 66 20 144/47 (79) 100 03/02/20 20:50 79 19 30 03/02/20 20:00 98.0 67 22 157/43 (81) 100 03/02/20 20:00 30 03/02/20 20:00 64 03/02/20 20:00 Mechanical Ventilator 03/02/20 19:30 140/50 (80) 03/02/20 19:14 74 18 30 03/02/20 19:00 68 20 155/100 (118) 100 03/02/20 18:00 67 16 160/51 (87) 99 03/02/20 17:00 61 16 147/45 (79) 100 03/02/20 16:56 67 16 30 03/02/20 16:00 30 03/02/20 16:00 97.5 64 18 177/60 (99) 100 03/02/20 16:00 67 03/02/20 16:00 Mechanical Ventilator 03/02/20 15:00 66 18 161/78 (105) 100 03/02/20 14:00 66 17 173/74 (107) 100 03/02/20 13:00 66 16 30 03/02/20 13:00 67 17 155/71 (99) 100 03/02/20 12:00 70 03/02/20 12:00 Mechanical Ventilator 03/02/20 12:00 97.7 71 24 120/106 (111) 100 03/02/20 12:00 30 03/02/20 11:10 69 17 30 03/02/20 11:00 73 18 102/59 (73) 99 Intake and Output 03/02/20 03/03/20 19:00 07:00 Intake Total 536 ml 510 ml Output Total 90 ml 20 ml Balance 446 ml 490 ml Intake Free Water 60 ml 90 ml IV Total 56 ml Tube Feeding 420 ml 420 ml Output Urine Total 90 ml 20 ml # Bowel Movements 5 7 Laboratory Tests 03/03/20 05:00: White Blood Count 8.1, Red Blood Count 3.69L, Hemoglobin 8.7L, Hematocrit 27.6L , Mean Corpuscular Volume 75L, Mean Corpuscular Hemoglobin 23.6L, Mean Corpuscular Hemoglobin Concent 31.6L, Red Cell Distribution Width 14.8, Platelet Count 298, Mean Platelet Volume 6.4L, Neutrophils (%) (Auto) 63.5, Lymphocytes (%) (Auto) 17.7L, Monocytes (%) (Auto) 13.1H, Eosinophils (%) (Auto ) 5.1H, Basophils (%) (Auto) 0.7, Sodium Level 139, Potassium Level 4.2, Chloride Level 99, Carbon Dioxide Level 31, Anion Gap 9, Blood Urea Nitrogen 71H , Creatinine 7.8H, Estimat Glomerular Filtration Rate 6.4, Glucose Level 109H, Calcium Level 8.2L Height (Feet): 5 Height (Inches): 7.00 Weight (Pounds): 247 General Appearance: no apparent distress EENT: other Respiratory/Chest: decreased breath sounds Abdomen: distended Bryan Hunter MD Mar 03, 2020 10:20
[2020-03-03] MEDS: Thiamine HCl 100 MG in D5W 55 ML IVPB SCH (11:52)
--- NOTE | 2020-03-03 12:24 | NUR ---
NURSE NOTES: BS 109. No Insulin covered according to protocol. Patient is sleeping in bed. Afebrile. Will continue to monitor.
--- NOTE | 2020-03-03 15:20 | NUR ---
NURSE NOTES: A-paced. Pt is able to move extremities. On bilateral soft wrist restraints. VSS. O2 sat 98-100%. Will continue to monitor.
--- NOTE | 2020-03-03 15:34 | NUR ---
CASE MANAGEMENT: REVIEW SI: (((COVID-19 VIRUS DETECTED))) ACUTE RESP FAILURE . ESRD on HD . UTI 98.6 60 16 128/48 98% MECH VENT FIO2 30 H/H 8.7/27.6 BUN 71 CR 7.8 CA+ 8.2 IS:IV THIAMINE Q24HR VITAMIN B6 GT QD EPOETIN SUBQ MWF IV PROTONIX BID LIPITOR NG QHS HYDRALAZINE Q4HR/PRN HD PRN -03/04/20 GT FEEDING \: ICU STATUS DCP: [facility]IENT IS FROM [facility]: [facility] IN AM
--- NOTE | 2020-03-03 16:21 | Cardiology Progress Note ---
Assessment/Plan Assessment/Plan 1. Respiratory failure. 2. History of obesity hypoventilation syndrome. 3. History of pulmonary hypertension previously. 4. Urinary tract infection. 5. covid 19 infection confimred 6. pneumonia. 7. History of bacteremia with Staph epi recently on 02/05/2020. i did not examine pt personally i did not feel the risk to me personally are worth the limited information that could be obtained while pt is not communicative and on a vent with confirmed covid 19 tele reviewed sinus and atrial paced d/w rn saturation are ok has thin clear secretion per staff no fever no diarrhea sats are 99- 100% on 30% fio2 on abx holding off in ordering echo at this time due to active covid 19 infecion all labs reviewed no weaning yet bp readings are performed on the left leg adn accuracy in question , i woudl expect higher reading in lower ext anyway Subjective ROS Limited/Unobtainable: Yes Subjective on a vent Objective Last 24 Hour Vital Signs Date Time Temp Pulse Resp B/P (MAP) Pulse Ox O2 Delivery O2 Flow Rate FiO2 03/03/20 15:00 61 16 141/43 (75) 100 03/03/20 14:00 60 15 129/49 (75) 99 03/03/20 13:00 60 16 130/51 (77) 99 03/03/20 12:00 98.6 60 16 128/48 (74) 98 03/03/20 12:00 Mechanical Ventilator 03/03/20 12:00 30 03/03/20 11:29 60 03/03/20 11:24 62 17 30 03/03/20 11:00 61 17 151/39 (76) 99 03/03/20 10:00 62 15 131/51 (77) 98 03/03/20 10:00 62 15 131/51 (77) 98 03/03/20 09:00 63 16 132/114 (120) 99 03/03/20 09:00 63 16 132/114 (120) 99 03/03/20 08:00 30 03/03/20 08:00 98.6 66 17 164/145 (151) 100 03/03/20 08:00 Mechanical Ventilator 03/03/20 07:56 69 03/03/20 07:49 63 16 30 03/03/20 07:00 62 15 151/55 (87) 100 03/03/20 07:00 88 21 30 03/03/20 06:30 63 18 03/03/20 06:00 66 21 144/70 (94) 100 03/03/20 05:16 82 20 30 03/03/20 05:00 61 19 104/84 (91) 98 03/03/20 04:00 60 03/03/20 04:00 30 03/03/20 04:00 Mechanical Ventilator 03/03/20 04:00 98.0 60 16 96/34 (54) 98 03/03/20 03:00 60 15 153/35 (74) 97 03/03/20 03:00 61 11 128/70 (89) 99 03/03/20 02:46 75 17 30 03/03/20 02:00 60 15 150/45 (80) 98 03/03/20 01:29 78 18 30 03/03/20 01:00 60 15 153/35 (74) 97 03/03/20 00:00 Mechanical Ventilator 03/03/20 00:00 30 03/03/20 00:00 63 03/03/20 00:00 97.8 61 15 109/44 (65) 97 03/03/20 00:00 62 03/03/20 00:00 30 03/02/20 23:00 61 16 144/55 (84) 100 03/02/20 22:40 72 22 30 03/02/20 22:00 67 18 119/53 (75) 100 03/02/20 21:00 66 20 144/47 (79) 100 03/02/20 20:50 79 19 30 03/02/20 20:00 98.0 67 22 157/43 (81) 100 03/02/20 20:00 30 03/02/20 20:00 64 03/02/20 20:00 Mechanical Ventilator 03/02/20 19:30 140/50 (80) 03/02/20 19:14 74 18 30 03/02/20 19:00 68 20 155/100 (118) 100 03/02/20 18:00 67 16 160/51 (87) 99 03/02/20 17:00 61 16 147/45 (79) 100 03/02/20 16:56 67 16 30 General Appearance: patient on isolation, isolation precautions Intake and Output 03/02/20 03/03/20 19:00 07:00 Intake Total 536 ml 510 ml Output Total 90 ml 20 ml Balance 446 ml 490 ml Intake Free Water 60 ml 90 ml IV Total 56 ml Tube Feeding 420 ml 420 ml Output Urine Total 90 ml 20 ml # Bowel Movements 5 7 Laboratory Tests Test 03/03/20 05:00 White Blood Count 8.1 K/UL (4.8-10.8) Red Blood Count 3.69 M/UL (4.20-5.40) L Hemoglobin 8.7 G/DL (12.0-16.0) L Hematocrit 27.6 % (37.0-47.0) L Mean Corpuscular Volume 75 FL (80-99) L Mean Corpuscular Hemoglobin 23.6 PG (27.0-31.0) L Mean Corpuscular Hemoglobin Concent 31.6 G/DL (32.0-36.0) L Red Cell Distribution Width 14.8 % (11.6-14.8) Platelet Count 298 K/UL (150-450) Mean Platelet Volume 6.4 FL (6.5-10.1) L Neutrophils (%) (Auto) 63.5 % (45.0-75.0) Lymphocytes (%) (Auto) 17.7 % (20.0-45.0) L Monocytes (%) (Auto) 13.1 % (1.0-10.0) H Eosinophils (%) (Auto) 5.1 % (0.0-3.0) H Basophils (%) (Auto) 0.7 % (0.0-2.0) Sodium Level 139 MMOL/L (136-145) Potassium Level 4.2 MMOL/L (3.5-5.1) Chloride Level 99 MMOL/L (98-107) Carbon Dioxide Level 31 MMOL/L (21-32) Anion Gap 9 mmol/L (5-15) Blood Urea Nitrogen 71 mg/dL (7-18) H Creatinine 7.8 MG/DL (0.55-1.30) H Estimat Glomerular Filtration Rate 6.4 mL/min (>60) Glucose Level 109 MG/DL (74-106) H Calcium Level 8.2 MG/DL (8.5-10.1) L Wilfredo Reyna MD Mar 03, 2020 16:21
--- NOTE | 2020-03-03 17:57 | NUR ---
NURSE NOTES: Cleaned patient for moderate amount of soft brown BM. Turned and repositioned pt. Pt helps turning. Will continue to monitor.
--- NOTE | 2020-03-03 19:21 | NUR ---
HAND-OFF: Report given to NATHALIA Hunter.
--- NOTE | 2020-03-03 19:30 | NUR ---
NURSE NOTES: Received pt awake but followed simple commands, orally intubated, on ac mode, A paced on the monitor, bp stable, afebrile. Bilateral soft wrist restraints on for safety due to several attempt to pull out ETT. Suctioned moderate amt of whitish secretions. o2 sat >95%. Watch for any resp. distress.HOB kept elevated. Oral care done. Will continue to monitor.
--- NOTE | 2020-03-03 21:30 | NUR ---
NURSE NOTES: Pt was agitated- aware Dr Murillo, with orders of ativan 2mg ivp q 2hr PRN and was given.
[2020-03-03] MEDS: Epoetin Alfa-EPBX(ESRD on dialysis)10,000 unit/ml vial SUBQ SCH (21:32)
[2020-03-03] MEDS: Dyna-Hex 2% Top Sol 2oz TOPIC SCH (21:34)
[2020-03-03] MEDS: LORazepam Inj 2mg/ml 1ml IV PRN ×2 (21:41→23:50)
--- NOTE | 2020-03-03 23:00 | NUR ---
NURSE NOTES: Turned q 2hrs prn with good skin care done.
[2020-03-04] VITALS (24 sets, daily range): BP systolic 93–173; BP diastolic 38–80
--- NOTE | 2020-03-04 01:00 | NUR ---
NURSE NOTES: Pt had x1 brownish stool. Cleaned up pt.
--- NOTE | 2020-03-04 03:00 | NUR ---
NURSE NOTES: Restinq well at this with vss
--- NOTE | 2020-03-04 05:00 | NUR ---
NURSE NOTES: Pt had extremely lg bowel movement, complete bath with bed changed done.
[2020-03-04] MEDS: Renvela 800mg Pkt NG SCH ×3 (05:35→18:02)
[2020-03-04] MEDS: NovoLOG Insulin Flexpen SUBQ SCH ×4 (05:36→18:00)
[2020-03-04 05:52] LABS: BASOPHILS % (AUTO) 0.4 % (0.0-2.0); EOSINOPHILS % (AUTO) 4.6 % (0.0-3.0); HEMATOCRIT 27.5 % (37.0-47.0); HEMOGLOBIN 8.7 G/DL (12.0-16.0); LYMPHOCYTES % (AUTO) 13.7 % (20.0-45.0); MEAN CORPUSCULAR VOLUME 75 FL (80-99); MONOCYTES % (AUTO) 10.5 % (1.0-10.0); NEUTROPHILS % (AUTO) 70.9 % (45.0-75.0); PLATELET COUNT 319 K/UL (150-450); RED BLOOD COUNT 3.69 M/UL (4.20-5.40); RED CELL DISTRIBUTION WIDTH 14.9 % (11.6-14.8); WHITE BLOOD COUNT 11.1 K/UL (4.8-10.8)
[2020-03-04] MEDS: LORazepam Inj 2mg/ml 1ml IV PRN ×2 (05:54→20:31)
[2020-03-04 05:57] LABS: ANION GAP 10 mmol/L (5-15); BLOOD UREA NITROGEN 90 mg/dL (7-18); CALCIUM 8.6 MG/DL (8.5-10.1); CARBON DIOXIDE 32 MMOL/L (21-32); CHLORIDE 95 MMOL/L (98-107); CREATININE 9.4 MG/DL (0.55-1.30); POTASSIUM 4.5 MMOL/L (3.5-5.1); SODIUM 137 MMOL/L (136-145)
--- NOTE | 2020-03-04 06:00 | NUR ---
NURSE NOTES: No resp. distress noted. vss
--- NOTE | 2020-03-04 07:24 | NUR ---
RD ASSESSMENT & RECOMMENDATIONS SEE CARE ACTIVITY FOR COMPLETE ASSESSMENT DAILY ESTIMATED NEEDS: Needs based on obesity, critical care, HD 11-14kg actual body wt (114kg) kcals/kg [id number] total kcals 1.5-2.0kg/IBW (66kg) g protein/kg 99-132 g total protein per MD, pt on HD mL/kg . total fluid mLs NUTRITION DIAGNOSIS: * Swallowing difficulty R/T respiratory status as evidenced by pt orally intubated, on NGT feeding. * Altered nutrition related lab values R/T ESRD as evidenced by elev creat (9.4), elev BNP (99557), elev phos (6.0-> wnl). CURRENT TF:Nepro @ 35ml/hr x 24 hrs + Prosource 1pkt TID ENTERAL NUTRITION RECOMMENDATIONS: Nepro @ 35ml/hr x 24 hrs + Prosource 1pkt TID to provide 840ml, 1512kcal, 68 +33g prot, 611ml free water * Maintain current TF @ goal. * Add Prosource 1pkt TID to meet protein needs * HOB over 30 degrees/ water flush per MD. ADDITIONAL RECOMMENDATIONS: 1) Calibrated bedscale wt for accurate CBW- daily wts for ESRD dx 2) Add Nephrovite x 1 3) Monitor BGs closely, for hypoglycemia : h/o frequent hypoglycemia during prev admissions 4) Consider phos binders for consistently elevated phos level -> now added (02/24) .
--- NOTE | 2020-03-04 08:00 | NUR ---
NURSE NOTES: Report received from NATHALIA Hunter. Pt is lying comfortably in semi fowlers with no signs of distress. Pt is non-verbal and drowsy, but can follow simple commands. Pt follows with eyes and is alert to voice. A+Ox1/2. Respirations even and unlabored on mechanical ventilator. ETT 7.5, 25 cm @ the lip line. O2 saturation of 100% with vent settings of AC 16, VT 600, FiO2 30% and no peep. Pt Apaced on the monitor @ 66 bpm. All other vitals stable as documented. Left upper arm PICC running TKO. Pt has Left heel DTI, dressed in optifoam. Pt also has excoriation on the sacral and perineal area, covered with triad cream. Head of bed @ 30 degrees. OGT noted and running feeding @ prescribed rate of 35 ml/hr. Tyler in place and patent, draining dark jessa urine at foot of bed. NG-tube noted and running feeding @ goal of 55 ml/hr. Pt on P200 mattress. Bed at lowest position, brakes engaged, siderails x3, bed alarm on, and call light within reach. Pt in stable condition at this time; will continue to monitor. Pt to have HD today with VIP. Right arm AV shunt noted.
--- NOTE | 2020-03-04 08:09 | NUR ---
HAND-OFF: Report given to Alexandra SLOAN.
[2020-03-04] MEDS: Heparin 5000 units/ml inj SUBQ SCH ×2 (08:20→20:48)
--- NOTE | 2020-03-04 08:21 | NUR ---
NURSE NOTES: Zain Fry, HD nurse from [facility] called to say HD is this afternoon and to hold BP meds and blood thinners. 0900 heparin on hold.
[2020-03-04] MEDS: Pantoprazole Inj IVP SCH ×2 (08:23→20:47)
[2020-03-04] MEDS: Pyridoxine 50mg tab NG SCH (08:23)
--- NOTE | 2020-03-04 08:34 | Infectious Diseases Prog Note ---
Assessment/Plan Assessment/Plan The patient is a 64-year-old female with Confirmed COVID-19. SARS-CoV PCR positive. Pneumonia No leukocytosis Fever, recurrent - likely 2/2 COVID, less likely active bacterial superinfection since pt just completed empiric course of antibacterial therapy and sputum cx NG - 03/01 CXR: Worsening bilateral hazy parenchymal infiltrates, versus edema - 02/20 CXR: Mild pulmonary vascular congestion with subtle bilateral haziness, not significantly changed.Possible tiny pleural effusions. Cardiomegaly. - Bcx ngtd - sp cx normal gui Less likely UTI u/a wbc tnct, nit +, leuk +3; ucx cindy(colonizer) Hx of positive blood culture CONS ,persistent 02/04 BCx: CoNS 01/30 Bc: (1/2)CoNS and Citrobacter 01/27 , 02/01 Bc: CoNS - (outside facility, # of the +ve cultures are not clear) A 2D echo from outside facility did not show any evidence of vegetation as per Carido pt is high risk for CLAY: ( last admission ) Diabetes. CHF. ESRD. Hypertension. Obesity. PLAN: continue the patient on vancomycin, day # ? 38/ ( will Rx for probable SBE) 02/27 SP plaquenil+azithromycin #5 / SP Ertapenem #8 02/24 DC amikacin #6 Monitor CBC. Monitor BMP. Monitor cultures (blood, Sp ) Airborne. Contact plus Isolation would not DC isolation even if we obtain two negative PCR swabs JAE RN Subjective Allergies: Coded Allergies: NO KNOWN ALLERGIES (Unverified Allergy, Unknown, 10/15/15) Subjective Afebrile. FiO2 30% Mild leukocytosis No pressors Objective Vital Signs Last 24 Hour Vital Signs Date Time Temp Pulse Resp B/P (MAP) Pulse Ox O2 Delivery O2 Flow Rate FiO2 03/04/20 08:00 Mechanical Ventilator 03/04/20 08:00 30 03/04/20 07:11 61 17 30 03/04/20 07:00 60 16 165/75 (105) 99 03/04/20 06:30 60 18 03/04/20 06:00 60 15 160/50 (86) 100 03/04/20 05:19 67 20 30 03/04/20 05:00 65 15 173/47 (89) 99 03/04/20 04:00 Mechanical Ventilator 03/04/20 04:00 30 4/9/20 04:00 98.4 66 15 140/53 (82) 99 03/04/20 04:00 62 03/04/20 03:00 65 16 170/48 (88) 99 03/04/20 02:42 66 16 30 03/04/20 02:00 64 18 134/78 (96) 100 03/04/20 01:16 64 18 30 03/04/20 01:00 65 16 130/60 (83) 98 03/04/20 00:00 Mechanical Ventilator 03/04/20 00:00 69 03/04/20 00:00 98.8 71 20 150/80 (103) 100 03/04/20 00:00 30 03/03/20 23:18 74 28 30 03/03/20 23:00 76 22 140/60 (86) 100 03/03/20 22:00 61 15 118/66 (83) 100 03/03/20 21:08 60 18 30 03/03/20 21:00 61 14 96/75 (82) 99 03/03/20 20:45 65 17 112/60 (77) 99 03/03/20 20:30 60 14 114/50 (71) 100 03/03/20 20:15 60 15 112/52 (72) 100 03/03/20 20:00 61 15 111/48 (69) 99 03/03/20 20:00 61 03/03/20 20:00 Mechanical Ventilator 03/03/20 19:27 60 16 30 03/03/20 19:00 62 16 145/55 (85) 100 03/03/20 18:00 60 16 130/53 (78) 100 03/03/20 17:30 60 19 30 03/03/20 17:00 60 16 143/70 (94) 100 03/03/20 16:00 Mechanical Ventilator 03/03/20 16:00 30 03/03/20 16:00 98.8 63 17 111/25 (53) 100 03/03/20 15:34 62 03/03/20 15:32 65 16 30 03/03/20 15:00 61 16 141/43 (75) 100 03/03/20 14:00 60 15 129/49 (75) 99 03/03/20 13:00 60 16 130/51 (77) 99 03/03/20 12:00 98.6 60 16 128/48 (74) 98 03/03/20 12:00 Mechanical Ventilator 03/03/20 12:00 30 03/03/20 11:29 60 03/03/20 11:24 62 17 30 03/03/20 11:00 61 17 151/39 (76) 99 03/03/20 10:00 62 15 131/51 (77) 98 03/03/20 10:00 62 15 131/51 (77) 98 03/03/20 09:00 63 16 132/114 (120) 99 03/03/20 09:00 63 16 132/114 (120) 99 Height (Feet): 5 Height (Inches): 7.00 Weight (Pounds): 245 Objective General Appearance: no acute distress. HEENT: normocephalic, atraumatic Respiratory/Chest: no respiratory distress, equal chest rise Abdomen: non distended. Tyler with sediments Neuro: awake. moving extremities Laboratory Tests Test 03/04/20 04:25 White Blood Count 11.1 K/UL (4.8-10.8) H Red Blood Count 3.69 M/UL (4.20-5.40) L Hemoglobin 8.7 G/DL (12.0-16.0) L Hematocrit 27.5 % (37.0-47.0) L Mean Corpuscular Volume 75 FL (80-99) L Mean Corpuscular Hemoglobin 23.5 PG (27.0-31.0) L Mean Corpuscular Hemoglobin Concent 31.4 G/DL (32.0-36.0) L Red Cell Distribution Width 14.9 % (11.6-14.8) H Platelet Count 319 K/UL (150-450) Mean Platelet Volume 6.5 FL (6.5-10.1) Neutrophils (%) (Auto) 70.9 % (45.0-75.0) Lymphocytes (%) (Auto) 13.7 % (20.0-45.0) L Monocytes (%) (Auto) 10.5 % (1.0-10.0) H Eosinophils (%) (Auto) 4.6 % (0.0-3.0) H Basophils (%) (Auto) 0.4 % (0.0-2.0) Sodium Level 137 MMOL/L (136-145) Potassium Level 4.5 MMOL/L (3.5-5.1) Chloride Level 95 MMOL/L (98-107) L Carbon Dioxide Level 32 MMOL/L (21-32) Anion Gap 10 mmol/L (5-15) Blood Urea Nitrogen 90 mg/dL (7-18) H Creatinine 9.4 MG/DL (0.55-1.30) H Estimat Glomerular Filtration Rate 5.1 mL/min (>60) Glucose Level 101 MG/DL (74-106) Calcium Level 8.6 MG/DL (8.5-10.1) Current Medications Medications (Trade) Dose Ordered Sig/Josi Route PRN Reason Start Time Stop Time Status Last Admin Dose Admin Acetaminophen (Tylenol) 650 mg Q4H PRN GT fever 02/25/20 06:30 03/26/20 06:29 03/01/20 12:30 Albuterol/ Ipratropium (Combivent Respimat) 1 puffs Q4H PRN INH Shortness of Breath 02/25/20 06:30 03/26/20 06:29 Atorvastatin Calcium (Lipitor) 10 mg BEDTIME NG 02/25/20 21:00 05/25/20 20:59 03/03/20 21:30 Chlorhexidine Gluconate (Jenny-Hex 2%) 1 applic DAILY@1999 TOPIC 03/01/20 20:00 05/30/20 19:59 03/03/20 21:34 Epoetin Jose De Jesus (Epoetin Jose De Jesus(ESRD on dialysis)) 10,000 unit SUN-SUN-SUN SUBQ 03/03/20 21:00 06/01/20 20:59 03/03/20 21:32 Heparin Sodium (Porcine) (Heparin 5000 units/ml) 5,000 units EVERY 12 HOURS SUBQ 02/25/20 09:00 04/10/20 08:59 03/03/20 21:33 Hydralazine HCl (Apresoline) 10 mg Q4H PRN IV Blood pressure over 160 systol 02/25/20 06:30 05/25/20 06:29 02/29/20 17:03 Insulin Aspart (NovoLOG) Q6HR SUBQ 03/03/20 12:00 05/20/20 12:29 03/03/20 17:29 Labetalol HCl (Normodyne) 20 mg Q1H PRN IV sbp more than 180mmHg 02/25/20 06:30 03/26/20 06:29 Lorazepam (Ativan 2mg/ml 1ml) 2 mg EVERY 2 HOURS PRN IV For Anxiety 03/03/20 21:30 03/10/20 21:29 03/04/20 05:54 Ondansetron HCl (Zofran) 4 mg Q6H PRN IVP Nausea & Vomiting 02/25/20 06:30 03/26/20 06:29 Pantoprazole (Protonix) 40 mg Q12HR IVP 02/25/20 09:00 03/26/20 08:59 03/04/20 08:23 Pyridoxine HCl (Vitamin B6) 50 mg DAILY NG 02/25/20 09:00 03/26/20 08:59 03/04/20 08:23 Sevelamer Carbonate (Renvela) 800 mg Q6HR NG 02/25/20 12:00 05/25/20 11:59 03/04/20 05:35 Thiamine HCl 100 mg/Dextrose 56 ml @ 112 mls/hr Q24H IVPB 02/25/20 12:00 03/26/20 11:59 03/03/20 11:52 Vancomycin HCl (Vanco rx to dose) 1 ea DAILY PRN MISC . 02/25/20 06:30 03/26/20 06:29 Clarice Nicolas MD Mar 04, 2020 08:34
--- NOTE | 2020-03-04 09:30 | NUR ---
NURSE NOTES: Pt repositioned and oral care done. OGT blocked. Tube milked and cranberry used to flush the line. OGT patent and running feeding at prescribed rate.
--- NOTE | 2020-03-04 10:44 | Pulmonolgy Critical Care Note ---
Critical Care - Asmt/Plan Problems: (1) COVID-19 virus infection (2) Acute respiratory failure (3) Sepsis (4) ESRD (end stage renal disease) on dialysis (5) Accelerated hypertension (6) Decubital ulcer (7) Pacemaker (8) Diabetes (9) Blindness of both eyes (10) Morbid obesity (11) HTN (hypertension) Respiratory: monitor respiratory rate, adjust FIO2, CXR Cardiac: continue to monitor HR/BP Renal: F/U I&O Infectious Disease: check cultures, continue antibiotics, other - on Vancomycin Gastrointestinal: continue feedings/current rate Endocrine: monitor blood sugar Hematologic: monitor H/H, transfuse if hgb<8.5 Neurologic: keep patient comfortable Prophylaxis: Protonix Time Spent (Minutes): 40 Notes Reviewed: 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, consultants, case managersmanager of revenue - Objective Last 24 Hour Vital Signs Date Time Temp Pulse Resp B/P (MAP) Pulse Ox O2 Delivery O2 Flow Rate FiO2 03/04/20 10:00 61 16 129/51 (77) 100 03/04/20 09:13 62 16 30 03/04/20 09:00 60 15 134/71 (92) 99 03/04/20 08:00 Mechanical Ventilator 03/04/20 08:00 98.3 65 16 152/79 (103) 100 03/04/20 08:00 30 03/04/20 07:11 61 17 30 03/04/20 07:00 60 16 165/75 (105) 99 03/04/20 06:30 60 18 03/04/20 06:00 60 15 160/50 (86) 100 03/04/20 05:19 67 20 30 03/04/20 05:00 65 15 173/47 (89) 99 03/04/20 04:00 Mechanical Ventilator 03/04/20 04:00 30 03/04/20 04:00 98.4 66 15 140/53 (82) 99 03/04/20 04:00 62 03/04/20 03:00 65 16 170/48 (88) 99 03/04/20 02:42 66 16 30 03/04/20 02:00 64 18 134/78 (96) 100 03/04/20 01:16 64 18 30 03/04/20 01:00 65 16 130/60 (83) 98 03/04/20 00:00 Mechanical Ventilator 03/04/20 00:00 69 03/04/20 00:00 98.8 71 20 150/80 (103) 100 03/04/20 00:00 30 03/03/20 23:18 74 28 30 03/03/20 23:00 76 22 140/60 (86) 100 03/03/20 22:00 61 15 118/66 (83) 100 03/03/20 21:08 60 18 30 03/03/20 21:00 61 14 96/75 (82) 99 03/03/20 20:45 65 17 112/60 (77) 99 03/03/20 20:30 60 14 114/50 (71) 100 03/03/20 20:15 60 15 112/52 (72) 100 03/03/20 20:00 61 15 111/48 (69) 99 03/03/20 20:00 61 03/03/20 20:00 Mechanical Ventilator 03/03/20 19:27 60 16 30 03/03/20 19:00 62 16 145/55 (85) 100 03/03/20 18:00 60 16 130/53 (78) 100 03/03/20 17:30 60 19 30 03/03/20 17:00 60 16 143/70 (94) 100 03/03/20 16:00 Mechanical Ventilator 03/03/20 16:00 30 03/03/20 16:00 98.8 63 17 111/25 (53) 100 03/03/20 15:34 62 03/03/20 15:32 65 16 30 03/03/20 15:00 61 16 141/43 (75) 100 03/03/20 14:00 60 15 129/49 (75) 99 03/03/20 13:00 60 16 130/51 (77) 99 03/03/20 12:00 98.6 60 16 128/48 (74) 98 03/03/20 12:00 Mechanical Ventilator 03/03/20 12:00 30 03/03/20 11:29 60 03/03/20 11:24 62 17 30 03/03/20 11:00 61 17 151/39 (76) 99 Status: awake Condition: critical HEENT: atraumatic, normocephalic Lungs: rales, rhonchi Heart: HR/BP stable Abdomen: soft, non-tender Extremities: no C/C/E Accucheck: 79 Critical Care - Subjective ROS Limited/Unobtainable: Yes Condition: critical EKG Rhythm: Sinus Rhythm FI02: 30 Vent Support Breath Rate: 16 Vent Support Mode: AC Vent Tidal Volume: 600 Sputum Amount: Moderate PEEP: 0.0 PIP: 25 Tube Feeding Amount: 35 I&O: Intake and Output 03/03/20 03/04/20 19:00 07:00 Intake Total 591 ml 500 ml Output Total 65 ml 10 ml Balance 526 ml 490 ml Intake Free Water 150 ml 80 ml IV Total 56 ml Tube Feeding 385 ml 420 ml Output Urine Total 65 ml 10 ml # Bowel Movements 2 8 ET-Tube: 7.5 ET Position: 25 Labs: Laboratory Tests Test 03/04/20 04:25 White Blood Count 11.1 K/UL (4.8-10.8) H Red Blood Count 3.69 M/UL (4.20-5.40) L Hemoglobin 8.7 G/DL (12.0-16.0) L Hematocrit 27.5 % (37.0-47.0) L Mean Corpuscular Volume 75 FL (80-99) L Mean Corpuscular Hemoglobin 23.5 PG (27.0-31.0) L Mean Corpuscular Hemoglobin Concent 31.4 G/DL (32.0-36.0) L Red Cell Distribution Width 14.9 % (11.6-14.8) H Platelet Count 319 K/UL (150-450) Mean Platelet Volume 6.5 FL (6.5-10.1) Neutrophils (%) (Auto) 70.9 % (45.0-75.0) Lymphocytes (%) (Auto) 13.7 % (20.0-45.0) L Monocytes (%) (Auto) 10.5 % (1.0-10.0) H Eosinophils (%) (Auto) 4.6 % (0.0-3.0) H Basophils (%) (Auto) 0.4 % (0.0-2.0) Sodium Level 137 MMOL/L (136-145) Potassium Level 4.5 MMOL/L (3.5-5.1) Chloride Level 95 MMOL/L (98-107) L Carbon Dioxide Level 32 MMOL/L (21-32) Anion Gap 10 mmol/L (5-15) Blood Urea Nitrogen 90 mg/dL (7-18) H Creatinine 9.4 MG/DL (0.55-1.30) H Estimat Glomerular Filtration Rate 5.1 mL/min (>60) Glucose Level 101 MG/DL (74-106) Calcium Level 8.6 MG/DL (8.5-10.1) Meghana Murillo MD Mar 04, 2020 10:44
--- NOTE | 2020-03-04 11:04 | NUR ---
NURSE NOTES: Pt dropping to 43 bpm on the monitor, pacemaker sensing and catching to 60 bpm. 100% AV pacing. Made Dr. Murillo aware and no new orders given.
--- NOTE | 2020-03-04 12:37 | General Progress Note ---
Assessment/Plan Problem List: (1) Obesity (BMI 30-39.9) ICD Codes: E66.9 - Obesity, unspecified SNOMED: 751973909, 584715974 (2) COVID-19 virus infection ICD Codes: U07.1 - COVID-19 SNOMED: 196988766 (3) Acute respiratory failure ICD Codes: J96.00 - Acute respiratory failure, unspecified whether with hypoxia or hypercapnia SNOMED: 66022806 (4) Blindness of both eyes ICD Codes: H54.0 - Blindness SNOMED: 888697328 (5) ESRD (end stage renal disease) on dialysis ICD Codes: N18.6 - End stage renal disease; Z99.2 - Dependence on renal dialysis SNOMED: 812719568 (6) Anemia ICD Codes: D64.9 - Anemia, unspecified SNOMED: 249248176 (7) Diabetes ICD Codes: E11.9 - Type 2 diabetes mellitus without complications SNOMED: 82902472 (8) AMS (altered mental status) ICD Codes: R41.82 - Altered mental status, unspecified SNOMED: 938859244 Status: unchanged Assessment/Plan: vent abx dialysis cbc bmp am Subjective Constitutional: Reports: weakness Allergies: Coded Allergies: NO KNOWN ALLERGIES (Unverified Allergy, Unknown, 10/15/15) All Systems: reviewed and negative except above Subjective intubated sedated ng in icu Objective Last 24 Hour Vital Signs Date Time Temp Pulse Resp B/P (MAP) Pulse Ox O2 Delivery O2 Flow Rate FiO2 03/04/20 11:17 63 16 30 03/04/20 10:00 61 16 129/51 (77) 100 03/04/20 09:13 62 16 30 03/04/20 09:00 60 15 134/71 (92) 99 03/04/20 08:00 Mechanical Ventilator 03/04/20 08:00 98.3 65 16 152/79 (103) 100 03/04/20 08:00 30 03/04/20 07:11 61 17 30 03/04/20 07:00 60 16 165/75 (105) 99 03/04/20 06:30 60 18 03/04/20 06:00 60 15 160/50 (86) 100 03/04/20 05:19 67 20 30 03/04/20 05:00 65 15 173/47 (89) 99 03/04/20 04:00 Mechanical Ventilator 03/04/20 04:00 30 03/04/20 04:00 98.4 66 15 140/53 (82) 99 03/04/20 04:00 62 03/04/20 03:00 65 16 170/48 (88) 99 03/04/20 02:42 66 16 30 03/04/20 02:00 64 18 134/78 (96) 100 03/04/20 01:16 64 18 30 03/04/20 01:00 65 16 130/60 (83) 98 03/04/20 00:00 Mechanical Ventilator 03/04/20 00:00 69 03/04/20 00:00 98.8 71 20 150/80 (103) 100 03/04/20 00:00 30 03/03/20 23:18 74 28 30 03/03/20 23:00 76 22 140/60 (86) 100 03/03/20 22:00 61 15 118/66 (83) 100 03/03/20 21:08 60 18 30 03/03/20 21:00 61 14 96/75 (82) 99 03/03/20 20:45 65 17 112/60 (77) 99 03/03/20 20:30 60 14 114/50 (71) 100 03/03/20 20:15 60 15 112/52 (72) 100 03/03/20 20:00 61 15 111/48 (69) 99 03/03/20 20:00 61 03/03/20 20:00 Mechanical Ventilator 03/03/20 19:27 60 16 30 03/03/20 19:00 62 16 145/55 (85) 100 03/03/20 18:00 60 16 130/53 (78) 100 03/03/20 17:30 60 19 30 03/03/20 17:00 60 16 143/70 (94) 100 03/03/20 16:00 Mechanical Ventilator 03/03/20 16:00 30 03/03/20 16:00 98.8 63 17 111/25 (53) 100 03/03/20 15:34 62 03/03/20 15:32 65 16 30 03/03/20 15:00 61 16 141/43 (75) 100 03/03/20 14:00 60 15 129/49 (75) 99 03/03/20 13:00 60 16 130/51 (77) 99 Intake and Output 03/03/20 03/04/20 19:00 07:00 Intake Total 591 ml 500 ml Output Total 65 ml 10 ml Balance 526 ml 490 ml Intake Free Water 150 ml 80 ml IV Total 56 ml Tube Feeding 385 ml 420 ml Output Urine Total 65 ml 10 ml # Bowel Movements 2 8 Laboratory Tests 03/04/20 04:25: White Blood Count 11.1H, Red Blood Count 3.69L, Hemoglobin 8.7L, Hematocrit 27.5L, Mean Corpuscular Volume 75L, Mean Corpuscular Hemoglobin 23.5L, Mean Corpuscular Hemoglobin Concent 31.4L, Red Cell Distribution Width 14.9H, Platelet Count 319, Mean Platelet Volume 6.5, Neutrophils (%) (Auto) 70.9, Lymphocytes (%) (Auto) 13.7L, Monocytes (%) (Auto) 10.5H, Eosinophils (%) (Auto ) 4.6H, Basophils (%) (Auto) 0.4, Sodium Level 137, Potassium Level 4.5, Chloride Level 95L, Carbon Dioxide Level 32, Anion Gap 10, Blood Urea Nitrogen 90H, Creatinine 9.4H, Estimat Glomerular Filtration Rate 5.1, Glucose Level 101 , Calcium Level 8.6 Height (Feet): 5 Height (Inches): 7.00 Weight (Pounds): 245 General Appearance: lethargic EENT: normal ENT inspection Neck: normal alignment Cardiovascular: normal rate, regular rhythm Respiratory/Chest: no accessory muscle use Skin: normal pigmentation Roderick Henning DO Mar 04, 2020 12:37
[2020-03-04] MEDS: Thiamine HCl 100 MG in D5W 55 ML IVPB SCH (12:47)
--- NOTE | 2020-03-04 13:05 | NUR ---
NURSE NOTES: Placed new optifoam on left heel. repositioned patient in bed. placed one more pillow under legs to have heels floating. BS WNL @ 110. No coverage. Suctioned pt and gave oral care. Respirations even and unlabored. Vent settings unchanged.
--- NOTE | 2020-03-04 13:18 | Nephrology Progress Note ---
Assessment/Plan Problem List: (1) Acute respiratory failure (2) ESRD (end stage renal disease) on dialysis (3) UTI (urinary tract infection) (4) Patient is Jewish (5) Pacemaker (6) Diabetes (7) Obesity (BMI 30-39.9) Assessment ARDS (adult respiratory distress syndrome) Fever Sepsis UTI (urinary tract infection) Respiratory failure, intubated on ventilator Thrombocytopenia Lymphopenia End stage renal disease on dialysis. Has a right upper arm dialysis fistula as Acces . Getting dialysis Sunday. morbid obesity Anemia / Jehova's witness CAD previous stent HTN- hypertensive urgency upon arrival to [facility]. s/p AVG DM 2 bilateral eye blindness h/o CHF Pacemaker Plan Patient positive for Covid 19 Per ID and pulmonary, ventilator adjustment Last dialyzed March 01, next dialysis March 04 EPO, thiamin and b6 Phos binders NGT feeding per consultants Remains full code at this time Subjective ROS Limited/Unobtainable: Yes Objective Objective Last 24 Hour Vital Signs Date Time Temp Pulse Resp B/P (MAP) Pulse Ox O2 Delivery O2 Flow Rate FiO2 03/04/20 13:03 66 16 30 03/04/20 12:00 64 03/04/20 12:00 Mechanical Ventilator 03/04/20 12:00 30 03/04/20 11:17 63 16 30 03/04/20 10:00 61 16 129/51 (77) 100 03/04/20 09:13 62 16 30 03/04/20 09:00 60 15 134/71 (92) 99 03/04/20 08:00 Mechanical Ventilator 03/04/20 08:00 98.3 65 16 152/79 (103) 100 03/04/20 08:00 30 03/04/20 08:00 63 03/04/20 07:11 61 17 30 03/04/20 07:00 60 16 165/75 (105) 99 03/04/20 06:30 60 18 03/04/20 06:00 60 15 160/50 (86) 100 03/04/20 05:19 67 20 30 03/04/20 05:00 65 15 173/47 (89) 99 03/04/20 04:00 Mechanical Ventilator 03/04/20 04:00 30 03/04/20 04:00 98.4 66 15 140/53 (82) 99 03/04/20 04:00 62 03/04/20 03:00 65 16 170/48 (88) 99 03/04/20 02:42 66 16 30 03/04/20 02:00 64 18 134/78 (96) 100 03/04/20 01:16 64 18 30 03/04/20 01:00 65 16 130/60 (83) 98 03/04/20 00:00 Mechanical Ventilator 03/04/20 00:00 69 03/04/20 00:00 98.8 71 20 150/80 (103) 100 03/04/20 00:00 30 03/03/20 23:18 74 28 30 03/03/20 23:00 76 22 140/60 (86) 100 03/03/20 22:00 61 15 118/66 (83) 100 03/03/20 21:08 60 18 30 03/03/20 21:00 61 14 96/75 (82) 99 03/03/20 20:45 65 17 112/60 (77) 99 03/03/20 20:30 60 14 114/50 (71) 100 03/03/20 20:15 60 15 112/52 (72) 100 03/03/20 20:00 61 15 111/48 (69) 99 03/03/20 20:00 61 03/03/20 20:00 Mechanical Ventilator 03/03/20 19:27 60 16 30 03/03/20 19:00 62 16 145/55 (85) 100 03/03/20 18:00 60 16 130/53 (78) 100 03/03/20 17:30 60 19 30 03/03/20 17:00 60 16 143/70 (94) 100 03/03/20 16:00 Mechanical Ventilator 03/03/20 16:00 30 03/03/20 16:00 98.8 63 17 111/25 (53) 100 03/03/20 15:34 62 03/03/20 15:32 65 16 30 03/03/20 15:00 61 16 141/43 (75) 100 03/03/20 14:00 60 15 129/49 (75) 99 Intake and Output 03/03/20 03/04/20 19:00 07:00 Intake Total 591 ml 500 ml Output Total 65 ml 10 ml Balance 526 ml 490 ml Intake Free Water 150 ml 80 ml IV Total 56 ml Tube Feeding 385 ml 420 ml Output Urine Total 65 ml 10 ml # Bowel Movements 2 8 Laboratory Tests 03/04/20 04:25: White Blood Count 11.1H, Red Blood Count 3.69L, Hemoglobin 8.7L, Hematocrit 27.5L, Mean Corpuscular Volume 75L, Mean Corpuscular Hemoglobin 23.5L, Mean Corpuscular Hemoglobin Concent 31.4L, Red Cell Distribution Width 14.9H, Platelet Count 319, Mean Platelet Volume 6.5, Neutrophils (%) (Auto) 70.9, Lymphocytes (%) (Auto) 13.7L, Monocytes (%) (Auto) 10.5H, Eosinophils (%) (Auto ) 4.6H, Basophils (%) (Auto) 0.4, Sodium Level 137, Potassium Level 4.5, Chloride Level 95L, Carbon Dioxide Level 32, Anion Gap 10, Blood Urea Nitrogen 90H, Creatinine 9.4H, Estimat Glomerular Filtration Rate 5.1, Glucose Level 101 , Calcium Level 8.6 Height (Feet): 5 Height (Inches): 7.00 Weight (Pounds): 245 General Appearance: no apparent distress EENT: other - Remains intubated and vented Cardiovascular: normal rate Respiratory/Chest: decreased breath sounds Abdomen: distended Bryan Hunter MD Mar 04, 2020 13:18
--- NOTE | 2020-03-04 15:30 | NUR ---
NURSE NOTES: Pt pulled up in bed, suctioned, and oral care done. Pt repositioned in bed. No acute distress noted. Pt able to help turn in bed
--- NOTE | 2020-03-04 15:42 | NUR ---
NURSE NOTES: Ryan hurts sent down to lab
--- NOTE | 2020-03-04 16:27 | NUR ---
NURSE NOTES: Pt continues to kick pillows up from under her legs so her heels are not floating. Pt also able to remove optifoam on heels.
--- NOTE | 2020-03-04 17:28 | Cardiology Progress Note ---
Assessment/Plan Assessment/Plan 1. Respiratory failure. 2. History of obesity hypoventilation syndrome. 3. History of pulmonary hypertension previously. 4. Urinary tract infection. 5. covid 19 infection confimred 6. pneumonia. 7. History of bacteremia with Staph epi recently on 02/05/2020. i did not examine pt personally i did not feel the risk to me personally are worth the limited information that could be obtained while pt is not communicative and on a vent with confirmed covid 19 tele reviewed sinus and atrial paced d/w rn saturation are ok has thin clear secretion per staff no fever no diarrhea sats are 99- 100% on 30% fio2 on abx holding off in ordering echo at this time due to active covid 19 infecion all labs reviewed wbc seems higher no weaning yet they await dilaysis bp readings are performed on the left leg adn accuracy in question , i would expect higher reading in lower ext anyway more sedated today maybe related to the ativan this am Subjective ROS Limited/Unobtainable: Yes Subjective on a vent Objective Last 24 Hour Vital Signs Date Time Temp Pulse Resp B/P (MAP) Pulse Ox O2 Delivery O2 Flow Rate FiO2 03/04/20 17:00 65 17 135/53 (80) 99 03/04/20 16:00 Mechanical Ventilator 03/04/20 16:00 98.0 65 16 120/38 (65) 99 03/04/20 16:00 30 03/04/20 16:00 70 03/04/20 15:30 62 16 30 03/04/20 15:00 64 16 122/47 (72) 99 03/04/20 14:00 63 16 107/50 (69) 96 03/04/20 13:03 66 16 30 03/04/20 13:00 60 17 109/46 (67) 99 03/04/20 12:00 64 03/04/20 12:00 Mechanical Ventilator 03/04/20 12:00 30 03/04/20 12:00 98.5 62 16 126/52 (76) 100 03/04/20 11:17 63 16 30 03/04/20 11:00 54 16 129/53 (78) 100 03/04/20 10:00 61 16 129/51 (77) 100 03/04/20 09:13 62 16 30 03/04/20 09:00 60 15 134/71 (92) 99 03/04/20 08:00 Mechanical Ventilator 03/04/20 08:00 98.3 65 16 152/79 (103) 100 03/04/20 08:00 30 03/04/20 08:00 63 03/04/20 07:11 61 17 30 03/04/20 07:00 60 16 165/75 (105) 99 03/04/20 06:30 60 18 03/04/20 06:00 60 15 160/50 (86) 100 03/04/20 05:19 67 20 30 03/04/20 05:00 65 15 173/47 (89) 99 03/04/20 04:00 Mechanical Ventilator 03/04/20 04:00 30 03/04/20 04:00 98.4 66 15 140/53 (82) 99 03/04/20 04:00 62 03/04/20 03:00 65 16 170/48 (88) 99 03/04/20 02:42 66 16 30 03/04/20 02:00 64 18 134/78 (96) 100 03/04/20 01:16 64 18 30 03/04/20 01:00 65 16 130/60 (83) 98 03/04/20 00:00 Mechanical Ventilator 03/04/20 00:00 69 03/04/20 00:00 98.8 71 20 150/80 (103) 100 03/04/20 00:00 30 03/03/20 23:18 74 28 30 03/03/20 23:00 76 22 140/60 (86) 100 03/03/20 22:00 61 15 118/66 (83) 100 03/03/20 21:08 60 18 30 03/03/20 21:00 61 14 96/75 (82) 99 03/03/20 20:45 65 17 112/60 (77) 99 03/03/20 20:30 60 14 114/50 (71) 100 03/03/20 20:15 60 15 112/52 (72) 100 03/03/20 20:00 61 15 111/48 (69) 99 03/03/20 20:00 61 03/03/20 20:00 Mechanical Ventilator 03/03/20 19:27 60 16 30 03/03/20 19:00 62 16 145/55 (85) 100 03/03/20 18:00 60 16 130/53 (78) 100 03/03/20 17:30 60 19 30 General Appearance: no apparent distress, on vent, patient on isolation, isolation precautions, other - sems quite quiet now nto as agitated as yest got ativan earlier to day Intake and Output 03/03/20 03/04/20 19:00 07:00 Intake Total 591 ml 500 ml Output Total 65 ml 10 ml Balance 526 ml 490 ml Intake Free Water 150 ml 80 ml IV Total 56 ml Tube Feeding 385 ml 420 ml Output Urine Total 65 ml 10 ml # Bowel Movements 2 8 Laboratory Tests Test 03/04/20 04:25 03/04/20 15:40 White Blood Count 11.1 K/UL (4.8-10.8) H Red Blood Count 3.69 M/UL (4.20-5.40) L Hemoglobin 8.7 G/DL (12.0-16.0) L Hematocrit 27.5 % (37.0-47.0) L Mean Corpuscular Volume 75 FL (80-99) L Mean Corpuscular Hemoglobin 23.5 PG (27.0-31.0) L Mean Corpuscular Hemoglobin Concent 31.4 G/DL (32.0-36.0) L Red Cell Distribution Width 14.9 % (11.6-14.8) H Platelet Count 319 K/UL (150-450) Mean Platelet Volume 6.5 FL (6.5-10.1) Neutrophils (%) (Auto) 70.9 % (45.0-75.0) Lymphocytes (%) (Auto) 13.7 % (20.0-45.0) L Monocytes (%) (Auto) 10.5 % (1.0-10.0) H Eosinophils (%) (Auto) 4.6 % (0.0-3.0) H Basophils (%) (Auto) 0.4 % (0.0-2.0) Sodium Level 137 MMOL/L (136-145) Potassium Level 4.5 MMOL/L (3.5-5.1) Chloride Level 95 MMOL/L (98-107) L Carbon Dioxide Level 32 MMOL/L (21-32) Anion Gap 10 mmol/L (5-15) Blood Urea Nitrogen 90 mg/dL (7-18) H Creatinine 9.4 MG/DL (0.55-1.30) H Estimat Glomerular Filtration Rate 5.1 mL/min (>60) Glucose Level 101 MG/DL (74-106) Calcium Level 8.6 MG/DL (8.5-10.1) Random Vancomycin Level Pending Wilfredo Reyna MD Mar 04, 2020 17:28
--- NOTE | 2020-03-04 17:50 | NUR ---
NURSE NOTES: Pt had bowel movement. Pt cleaned, linen changed, pt repositioned in bed. During repositioning, OGT pulled out. Feeding on hold. Will insert new OGT. Oral care done.
--- NOTE | 2020-03-04 18:37 | NUR ---
NURSE NOTES: OGT inserted and stat KUB ordered. OGT @ 55 cm at the lip.
--- NOTE | 2020-03-04 18:46 | NUR ---
NURSE NOTES: HD nurse @ bedside
--- NOTE | 2020-03-04 18:56 | NUR ---
NURSE NOTES: weatherization field technician at bedside unable to do KUB d/t dialysis machine in the room. They said to call back whenn HD is done and they will do the xray then.
--- NOTE | 2020-03-04 19:11 | NUR ---
NURSE NOTES: Report given to NATHALIA Hunter. Pt in stable condition; plan of care endorsed.
--- NOTE | 2020-03-04 19:30 | NUR ---
NURSE NOTES: Received pt awake. orally intubated on ac mode SR-A Paced on the monitor, bp stable, afebrile, OGT fdg off, awaiting for KUB ,for tube placement. Hemodialysis on progress.
[2020-03-04] MEDS: Dyna-Hex 2% Top Sol 2oz TOPIC SCH (20:19)
--- NOTE | 2020-03-04 20:32 | NUR ---
NURSE NOTES: Ativan 2mg ivp was given due to severe agitation.
--- NOTE | 2020-03-04 21:00 | NUR ---
NURSE NOTES: Hemodialysis was finished with 3L out.
--- NOTE | 2020-03-04 22:00 | NUR ---
NURSE NOTES: KUB was done to confimed OGT placement and its in place, after forwarding 5 inches per pathology technologist.
--- NOTE | 2020-03-04 22:49 | Diagnostic Imaging Report ---
Indication: Status post orogastric tube placement Technique: Supine view of the upper abdomen Comparison: 02/20/2020 Findings: There is an orogastric tube in place, tip of which projects at the level gastric fundus, proximal sidehole just beyond the gastroesophageal junction. Bowel gas pattern is unremarkable. Impression: Satisfactory position of orogastric tube This agrees with the preliminary interpretation provided overnight by [facility] teleradiology service.
--- NOTE | 2020-03-04 23:15 | NUR ---
NURSE NOTES: Resumed tube fdg at 35ml/hr, HOB kept elevated, On aspiration precaution.
[2020-03-05] VITALS (28 sets, daily range): BP systolic 76–209; BP diastolic 31–125
--- NOTE | 2020-03-05 | NUR ---
NURSE NOTES: Pt self extubate, inspite of bilateral soft wrist restraints on.-place on 100% NRB mask 02 sat 100%. HOB keep elevated, watch for ay resp. distress.- aware Dr Murillo. no other orders given.
--- NOTE | 2020-03-05 00:01 | NUR ---
RESPIRATORY NOTE: Pt self-extubated. Put on Venturi Mask 4L 30%. 100% SpO2. No respiratory distress noted. RN Elsa aware. Will continue to monitor.
[2020-03-05] MEDS: Renvela 800mg Pkt NG SCH ×4 (00:37→18:19)
[2020-03-05] MEDS: LORazepam Inj 2mg/ml 1ml IV PRN ×2 (00:50→09:03)
--- NOTE | 2020-03-05 02:00 | NUR ---
NURSE NOTES: PLACED ON 30% simple mask 02 sat 100%, suctioned orally minimal whitish phlegm.
[2020-03-05 03:46] LABS: ALBUMIN 3.2 G/DL (3.4-5.0); ALBUMIN/GLOBULIN RATIO 0.7 (1.0-2.7); ALKALINE PHOSPHATASE 314 U/L (46-116); ANION GAP 11 mmol/L (5-15); ASPARTATE AMINO TRANSFERASE 66 U/L (15-37); BILIRUBIN,TOTAL 0.9 MG/DL (0.2-1.0); BLOOD UREA NITROGEN 42 mg/dL (7-18); CARBON DIOXIDE 35 MMOL/L (21-32); CHLORIDE 95 MMOL/L (98-107); CREATININE 4.8 MG/DL (0.55-1.30); PHOSPHORUS 2.9 MG/DL (2.5-4.9); POTASSIUM 3.5 MMOL/L (3.5-5.1); SODIUM 141 MMOL/L (136-145)
--- NOTE | 2020-03-05 04:00 | NUR ---
NURSE NOTES: Placed on 02 at 1liter/nc. 02 sat 100%.
[2020-03-05 04:02] LABS: ALANINE AMINOTRANSFERASE 39 U/L (12-78)
[2020-03-05 04:12] LABS: LACTATE DEHYDROGENASE 370 U/L (81-234)
--- NOTE | 2020-03-05 05:00 | NUR ---
NURSE NOTES: complete bed bath with bed changed was done,
[2020-03-05 05:47] LABS: BASOPHILS % (AUTO) 0.4 % (0.0-2.0); EOSINOPHILS % (AUTO) 3.4 % (0.0-3.0); HEMATOCRIT 30.3 % (37.0-47.0); HEMOGLOBIN 9.4 G/DL (12.0-16.0); LYMPHOCYTES % (AUTO) 12.6 % (20.0-45.0); MEAN CORPUSCULAR VOLUME 75 FL (80-99); MONOCYTES % (AUTO) 13.1 % (1.0-10.0); NEUTROPHILS % (AUTO) 70.4 % (45.0-75.0); PLATELET COUNT 337 K/UL (150-450); RED BLOOD COUNT 4.06 M/UL (4.20-5.40); RED CELL DISTRIBUTION WIDTH 15.1 % (11.6-14.8); WHITE BLOOD COUNT 10.8 K/UL (4.8-10.8)
[2020-03-05] MEDS: NovoLOG Insulin Flexpen SUBQ SCH ×4 (06:00→18:00)
[2020-03-05] MEDS ORDERED: Vancomycin 1gm in D5W 275ml IVPB SCH ×2 (06:00→09:00)
--- NOTE | 2020-03-05 06:30 | NUR ---
NURSE NOTES: Accucheck 101- no coverage.
--- NOTE | 2020-03-05 07:00 | NUR ---
NURSE NOTES: No resp, distress noted, vss,
--- NOTE | 2020-03-05 07:47 | NUR ---
HAND-OFF: Report given to Alexandra SLOAN.
--- NOTE | 2020-03-05 08:00 | NUR ---
NURSE NOTES: Report received from NATHALIA Hunter. Pt is lying in bed with no signs of distress. Pt is restless and sliding down in bed. Pt follows commands and A+Ox2. Respirations even and unlabored on 1 L NC. O2 saturation of 97%. Pt Apaced on the monitor @ 63 bpm. All other vitals stable as documented. Left upper arm PICC running TKO. Pt has Left heel DTI, dressed in optifoam. Pt also has excoriation on the sacral and perineal area, covered with triad cream. Pt refusing to stay up in bed and is laying flat. OGT noted and patent. Stopped feeding to prevent aspiration until patient can be pulled up and have HOB @ [address] and patent, draining dark jessa urine at foot of bed. Pt oliguric. Pt on P200 mattress. Bed at lowest position, brakes engaged, siderails x3, bed alarm on, and call light within reach. Pt in stable condition at this time; will continue to monitor. Pt to have HD today with VIP. Right arm AV shunt noted. Addendum: 03/05/20 at 1137 by Alexandra Odom RN Pt to have HD TOMORROW not today.
--- NOTE | 2020-03-05 08:23 | Infectious Diseases Prog Note ---
Assessment/Plan Assessment/Plan The patient is a 64-year-old female with Confirmed COVID-19. SARS-CoV PCR positive. Pneumonia No leukocytosis Fever, recurrent - likely 2/2 COVID, less likely active bacterial superinfection since pt just completed empiric course of antibacterial therapy and sputum cx NG - 03/01 CXR: Worsening bilateral hazy parenchymal infiltrates, versus edema - 02/20 CXR: Mild pulmonary vascular congestion with subtle bilateral haziness, not significantly changed.Possible tiny pleural effusions. Cardiomegaly. - Bcx ngtd - sp cx normal gui Less likely UTI u/a wbc tnct, nit +, leuk +3; ucx cindy(colonizer) Hx of positive blood culture CONS ,persistent 02/04 BCx: CoNS 01/30 Bc: (1/2)CoNS and Citrobacter 01/27 , 02/01 Bc: CoNS - (outside facility, # of the +ve cultures are not clear) A 2D echo from outside facility did not show any evidence of vegetation as per Carido pt is high risk for CLAY: ( last admission ) Diabetes. CHF. ESRD. Hypertension. Obesity. PLAN: continue the patient on vancomycin, day # ? ( will Rx for probable SBE) 02/27 SP plaquenil+azithromycin #5 / SP Ertapenem #8 02/24 DC amikacin #6 Monitor CBC. Monitor BMP. Monitor cultures (blood, Sp ) Airborne. Contact plus Isolation would continue isolation given persistent tenuous resp status DW RN Subjective Allergies: Coded Allergies: NO KNOWN ALLERGIES (Unverified Allergy, Unknown, 10/15/15) Subjective Afebrile. FiO2 30% No pressors self extubated and satting well on 1L NC Objective Vital Signs Last 24 Hour Vital Signs Date Time Temp Pulse Resp B/P (MAP) Pulse Ox O2 Delivery O2 Flow Rate FiO2 03/05/20 06:00 72 31 98/66 (77) 98 03/05/20 05:00 72 22 118/42 (67) 100 03/05/20 04:00 69 03/05/20 04:00 Mechanical Ventilator 03/05/20 04:00 98.0 69 25 108/52 (70) 100 03/05/20 04:00 68 03/05/20 03:00 68 30 109/46 (67) 94 03/05/20 02:00 67 29 76/33 (47) 100 03/05/20 01:00 71 32 119/61 (80) 100 03/05/20 00:45 75 26 148/48 (81) 81 03/05/20 00:30 74 25 101/31 (54) 98 03/05/20 00:15 82 24 101/62 (75) 100 03/05/20 00:00 Mechanical Ventilator 03/05/20 00:00 98.2 115 22 129/90 (103) 100 03/05/20 00:00 70 03/04/20 23:20 71 16 30 03/04/20 23:00 60 18 93/39 (57) 100 03/04/20 22:00 63 17 94/71 (79) 99 03/04/20 21:33 63 17 30 03/04/20 21:00 59 13 122/68 (86) 99 03/04/20 20:00 Mechanical Ventilator 03/04/20 20:00 98.0 62 17 114/49 (70) 98 03/04/20 20:00 30 03/04/20 20:00 69 03/04/20 19:44 63 18 30 03/04/20 19:00 63 11 124/49 (74) 98 03/04/20 18:00 68 16 116/60 (78) 100 03/04/20 17:28 74 20 30 03/04/20 17:00 65 17 135/53 (80) 99 03/04/20 16:00 Mechanical Ventilator 03/04/20 16:00 98.0 65 16 120/38 (65) 99 03/04/20 16:00 30 03/04/20 16:00 70 03/04/20 15:30 62 16 30 03/04/20 15:00 64 16 122/47 (72) 99 03/04/20 14:00 63 16 107/50 (69) 96 03/04/20 13:03 66 16 30 03/04/20 13:00 60 17 109/46 (67) 99 03/04/20 12:00 64 03/04/20 12:00 Mechanical Ventilator 03/04/20 12:00 30 03/04/20 12:00 98.5 62 16 126/52 (76) 100 03/04/20 11:17 63 16 30 03/04/20 11:00 54 16 129/53 (78) 100 03/04/20 10:00 61 16 129/51 (77) 100 03/04/20 09:13 62 16 30 03/04/20 09:00 60 15 134/71 (92) 99 Height (Feet): 5 Height (Inches): 7.00 Weight (Pounds): 242 Objective General Appearance: no acute distress. HEENT: normocephalic, atraumatic. no ETT Respiratory/Chest: no respiratory distress, equal chest rise Abdomen: non distended. Tyler with sediments Neuro: awake. moving extremities Laboratory Tests Test 03/04/20 15:40 03/05/20 03:00 03/05/20 05:00 Random Vancomycin Level 21.8 ug/mL 15.0 ug/mL Sodium Level 141 MMOL/L (136-145) Potassium Level 3.5 MMOL/L (3.5-5.1) Chloride Level 95 MMOL/L (98-107) L Carbon Dioxide Level 35 MMOL/L (21-32) H Anion Gap 11 mmol/L (5-15) Blood Urea Nitrogen 42 mg/dL (7-18) H Creatinine 4.8 MG/DL (0.55-1.30) H Estimat Glomerular Filtration Rate 11.2 mL/min (>60) Glucose Level 67 MG/DL (74-106) L Uric Acid 2.3 MG/DL (2.6-7.2) L Calcium Level 9.0 MG/DL (8.5-10.1) Phosphorus Level 2.9 MG/DL (2.5-4.9) Magnesium Level 2.7 MG/DL (1.8-2.4) H Total Bilirubin 0.9 MG/DL (0.2-1.0) Aspartate Amino Transf (AST/SGOT) 66 U/L (15-37) H Alanine Aminotransferase (ALT/SGPT) 39 U/L (12-78) Alkaline Phosphatase 314 U/L (46-116) H Lactate Dehydrogenase 370 U/L (81-234) H C-Reactive Protein, Quantitative 7.6 mg/dL (0.00-0.90) H Pro-B-Type Natriuretic Peptide > 40202 pg/mL (0-125) H Total Protein 7.6 G/DL (6.4-8.2) Albumin 3.2 G/DL (3.4-5.0) L Globulin 4.4 g/dL Albumin/Globulin Ratio 0.7 (1.0-2.7) L White Blood Count 10.8 K/UL (4.8-10.8) Red Blood Count 4.06 M/UL (4.20-5.40) L Hemoglobin 9.4 G/DL (12.0-16.0) L Hematocrit 30.3 % (37.0-47.0) L Mean Corpuscular Volume 75 FL (80-99) L Mean Corpuscular Hemoglobin 23.1 PG (27.0-31.0) L Mean Corpuscular Hemoglobin Concent 30.9 G/DL (32.0-36.0) L Red Cell Distribution Width 15.1 % (11.6-14.8) H Platelet Count 337 K/UL (150-450) Mean Platelet Volume 6.2 FL (6.5-10.1) L Neutrophils (%) (Auto) 70.4 % (45.0-75.0) Lymphocytes (%) (Auto) 12.6 % (20.0-45.0) L Monocytes (%) (Auto) 13.1 % (1.0-10.0) H Eosinophils (%) (Auto) 3.4 % (0.0-3.0) H Basophils (%) (Auto) 0.4 % (0.0-2.0) D-Dimer 4.04 mg/L FEU (0.00-0.49) H Current Medications Medications (Trade) Dose Ordered Sig/Josi Route PRN Reason Start Time Stop Time Status Last Admin Dose Admin Acetaminophen (Tylenol) 650 mg Q4H PRN GT fever 02/25/20 06:30 03/26/20 06:29 03/01/20 12:30 Albuterol/ Ipratropium (Combivent Respimat) 1 puffs Q4H PRN INH Shortness of Breath 02/25/20 06:30 03/26/20 06:29 Atorvastatin Calcium (Lipitor) 10 mg BEDTIME NG 02/25/20 21:00 05/25/20 20:59 03/04/20 20:47 Chlorhexidine Gluconate (Jenny-Hex 2%) 1 applic DAILY@1999 TOPIC 03/01/20 20:00 05/30/20 19:59 03/04/20 20:19 Epoetin Jose De Jesus (Epoetin Jose De Jesus(ESRD on dialysis)) 10,000 unit SUN-SUN-SUN SUBQ 03/03/20 21:00 06/01/20 20:59 03/03/20 21:32 Heparin Sodium (Porcine) (Heparin 5000 units/ml) 5,000 units EVERY 12 HOURS SUBQ 02/25/20 09:00 04/10/20 08:59 03/04/20 20:48 Hydralazine HCl (Apresoline) 10 mg Q4H PRN IV Blood pressure over 160 systol 02/25/20 06:30 05/25/20 06:29 02/29/20 17:03 Insulin Aspart (NovoLOG) Q6HR SUBQ 03/03/20 12:00 05/20/20 12:29 03/03/20 17:29 Labetalol HCl (Normodyne) 20 mg Q1H PRN IV sbp more than 180mmHg 02/25/20 06:30 03/26/20 06:29 Lorazepam (Ativan 2mg/ml 1ml) 2 mg EVERY 2 HOURS PRN IV For Anxiety 03/03/20 21:30 03/10/20 21:29 03/05/20 00:50 Ondansetron HCl (Zofran) 4 mg Q6H PRN IVP Nausea & Vomiting 02/25/20 06:30 03/26/20 06:29 Pantoprazole (Protonix) 40 mg Q12HR IVP 02/25/20 09:00 03/26/20 08:59 03/04/20 20:47 Pyridoxine HCl (Vitamin B6) 50 mg DAILY NG 02/25/20 09:00 03/26/20 08:59 03/04/20 08:23 Sevelamer Carbonate (Renvela) 800 mg Q6HR NG 02/25/20 12:00 05/25/20 11:59 03/05/20 06:04 Thiamine HCl 100 mg/Dextrose 56 ml @ 112 mls/hr Q24H IVPB 02/25/20 12:00 03/26/20 11:59 03/04/20 12:47 Vancomycin HCl (Vanco rx to dose) 1 ea DAILY PRN MISC . 02/25/20 06:30 03/26/20 06:29 Vancomycin HCl 1 gm/Dextrose 275 ml @ 183.708 mls/hr ONCE IVPB 03/05/20 09:00 03/05/20 11:00 Clarice Nicolas MD Mar 05, 2020 08:23
--- NOTE | 2020-03-05 08:54 | General Progress Note ---
Assessment/Plan Problem List: (1) Obesity (BMI 30-39.9) ICD Codes: E66.9 - Obesity, unspecified SNOMED: 401769899, 868810005 (2) COVID-19 virus infection ICD Codes: U07.1 - COVID-19 SNOMED: 279653639 (3) Acute respiratory failure ICD Codes: J96.00 - Acute respiratory failure, unspecified whether with hypoxia or hypercapnia SNOMED: 74543791 (4) Blindness of both eyes ICD Codes: H54.0 - Blindness SNOMED: 461420803 (5) ESRD (end stage renal disease) on dialysis ICD Codes: N18.6 - End stage renal disease; Z99.2 - Dependence on renal dialysis SNOMED: 381850931 (6) Anemia ICD Codes: D64.9 - Anemia, unspecified SNOMED: 283451658 (7) Diabetes ICD Codes: E11.9 - Type 2 diabetes mellitus without complications SNOMED: 52733229 (8) AMS (altered mental status) ICD Codes: R41.82 - Altered mental status, unspecified SNOMED: 813298418 Status: unchanged Assessment/Plan: vent abx dialysis cbc bmp am Subjective Constitutional: Reports: weakness Allergies: Coded Allergies: NO KNOWN ALLERGIES (Unverified Allergy, Unknown, 10/15/15) All Systems: reviewed and negative except above Subjective intubated sedated ng in icu Objective Last 24 Hour Vital Signs Date Time Temp Pulse Resp B/P (MAP) Pulse Ox O2 Delivery O2 Flow Rate FiO2 03/05/20 06:00 72 31 98/66 (77) 98 03/05/20 05:00 72 22 118/42 (67) 100 03/05/20 04:00 69 03/05/20 04:00 Mechanical Ventilator 03/05/20 04:00 98.0 69 25 108/52 (70) 100 03/05/20 04:00 68 03/05/20 03:00 68 30 109/46 (67) 94 03/05/20 02:00 67 29 76/33 (47) 100 03/05/20 01:00 71 32 119/61 (80) 100 03/05/20 00:45 75 26 148/48 (81) 81 03/05/20 00:30 74 25 101/31 (54) 98 03/05/20 00:15 82 24 101/62 (75) 100 03/05/20 00:00 Mechanical Ventilator 03/05/20 00:00 98.2 115 22 129/90 (103) 100 03/05/20 00:00 70 03/04/20 23:20 71 16 30 03/04/20 23:00 60 18 93/39 (57) 100 03/04/20 22:00 63 17 94/71 (79) 99 03/04/20 21:33 63 17 30 03/04/20 21:00 59 13 122/68 (86) 99 03/04/20 20:00 Mechanical Ventilator 03/04/20 20:00 98.0 62 17 114/49 (70) 98 03/04/20 20:00 30 03/04/20 20:00 69 03/04/20 19:44 63 18 30 03/04/20 19:00 63 11 124/49 (74) 98 03/04/20 18:00 68 16 116/60 (78) 100 03/04/20 17:28 74 20 30 03/04/20 17:00 65 17 135/53 (80) 99 03/04/20 16:00 Mechanical Ventilator 03/04/20 16:00 98.0 65 16 120/38 (65) 99 03/04/20 16:00 30 03/04/20 16:00 70 03/04/20 15:30 62 16 30 03/04/20 15:00 64 16 122/47 (72) 99 03/04/20 14:00 63 16 107/50 (69) 96 03/04/20 13:03 66 16 30 03/04/20 13:00 60 17 109/46 (67) 99 03/04/20 12:00 64 03/04/20 12:00 Mechanical Ventilator 03/04/20 12:00 30 03/04/20 12:00 98.5 62 16 126/52 (76) 100 03/04/20 11:17 63 16 30 03/04/20 11:00 54 16 129/53 (78) 100 03/04/20 10:00 61 16 129/51 (77) 100 03/04/20 09:13 62 16 30 03/04/20 09:00 60 15 134/71 (92) 99 Intake and Output 03/04/20 03/05/20 19:00 07:00 Intake Total 651 ml 375 ml Output Total 115 ml 3050 ml Balance 536 ml -2675 ml Intake Free Water 210 ml 60 ml IV Total 56 ml Tube Feeding 385 ml 315 ml Output Urine Total 115 ml 50 ml Hemodialysis UF 3000 ml # Bowel Movements 7 Laboratory Tests 03/04/20 15:40: Random Vancomycin Level 21.8 03/05/20 03:00: Random Vancomycin Level 15.0, Sodium Level 141, Potassium Level 3.5, Chloride Level 95L, Carbon Dioxide Level 35H, Anion Gap 11, Blood Urea Nitrogen 42H, Creatinine 4.8H, Estimat Glomerular Filtration Rate 11.2, Glucose Level 67L, Uric Acid 2.3L, Calcium Level 9.0, Phosphorus Level 2.9, Magnesium Level 2.7H, Total Bilirubin 0.9, Aspartate Amino Transf (AST/SGOT) 66H, Alanine Aminotransferase (ALT/SGPT) 39, Alkaline Phosphatase 314H, Lactate Dehydrogenase 370H, C-Reactive Protein, Quantitative 7.6H, Pro-B-Type Natriuretic Peptide > 30441D, Total Protein 7.6, Albumin 3.2L, Globulin 4.4, Albumin/Globulin Ratio 0.7L 03/05/20 05:00: White Blood Count 10.8, Red Blood Count 4.06L, Hemoglobin 9.4L, Hematocrit 30.3L , Mean Corpuscular Volume 75L, Mean Corpuscular Hemoglobin 23.1L, Mean Corpuscular Hemoglobin Concent 30.9L, Red Cell Distribution Width 15.1H, Platelet Count 337, Mean Platelet Volume 6.2L, Neutrophils (%) (Auto) 70.4, Lymphocytes (%) (Auto) 12.6L, Monocytes (%) (Auto) 13.1H, Eosinophils (%) (Auto ) 3.4H, Basophils (%) (Auto) 0.4, D-Dimer 4.04H 03/05/20 08:31: Arterial Blood pH 7.467H, Arterial Blood Partial Pressure CO2 46.6H, Arterial Blood Partial Pressure O2 77.1, Arterial Blood HCO3 32.9H, Arterial Blood Oxygen Saturation 94.3L, Arterial Blood Base Excess 8.3H, Lester Test Positive Height (Feet): 5 Height (Inches): 7.00 Weight (Pounds): 242 General Appearance: lethargic EENT: normal ENT inspection Neck: normal alignment Cardiovascular: normal rate, regular rhythm Respiratory/Chest: no accessory muscle use Extremities: normal inspection Skin: normal pigmentation Roderick Henning DO Mar 05, 2020 08:54
[2020-03-05] MEDS: Pantoprazole Inj IVP SCH ×2 (08:57→20:25)
[2020-03-05] MEDS: Pyridoxine 50mg tab NG SCH (08:57)
[2020-03-05] MEDS: Heparin 5000 units/ml inj SUBQ SCH ×2 (08:58→20:26)
--- NOTE | 2020-03-05 09:26 | NUR ---
NURSE NOTES: Pt very restless, throwing legs out of bed, moving down in bed and getting out of her restraints. Pt not laying with head elevated at least 30 degrees. Feeding stopped this morning d/t aspiration risk. Dr. Murillo made aware of pt's restlessness. PRN Ativan administered to pt with morning medications. Pt on 1 L NC with saturation of 96%.
--- NOTE | 2020-03-05 09:28 | NUR ---
NURSE NOTES: Pt pulled up in bed, repositioned, head of bed 30 degrees. Feeding restarted @ prescribed rate.
--- NOTE | 2020-03-05 10:13 | NUR ---
RADIOLOGY DEPT., CHEST X-RAY DONE.-P.DYE
--- NOTE | 2020-03-05 10:20 | Diagnostic Imaging Report ---
Indication: Dyspnea, patient self extubated Technique: One view of the chest Comparison: 03/01/2020 Findings: Heart is enlarged. There is bilateral interstitial and airspace disease, stable to slightly increased, allowing for differences in degree of exposure. Left chest pacemaker remains. Endotracheal tube has been removed. Orogastric tube remains. Left arm PICC remains Impression: Absent endotracheal tube, consistent with stated clinical history of self extubation Stable to minimally worsened bilateral interstitial and airspace infiltrates versus edema Other stable findings as described
--- NOTE | 2020-03-05 10:50 | Pulmonolgy Critical Care Note ---
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, 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, 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, 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 - Objective Last 24 Hour Vital Signs Date Time Temp Pulse Resp B/P (MAP) Pulse Ox O2 Delivery O2 Flow Rate FiO2 03/05/20 08:00 Nasal Cannula 1.0 03/05/20 06:00 72 31 98/66 (77) 98 03/05/20 05:00 72 22 118/42 (67) 100 03/05/20 04:00 69 03/05/20 04:00 Mechanical Ventilator 03/05/20 04:00 98.0 69 25 108/52 (70) 100 03/05/20 04:00 68 03/05/20 03:00 68 30 109/46 (67) 94 03/05/20 02:00 67 29 76/33 (47) 100 03/05/20 01:00 71 32 119/61 (80) 100 03/05/20 00:45 75 26 148/48 (81) 81 03/05/20 00:30 74 25 101/31 (54) 98 03/05/20 00:15 82 24 101/62 (75) 100 03/05/20 00:00 Mechanical Ventilator 03/05/20 00:00 98.2 115 22 129/90 (103) 100 03/05/20 00:00 70 03/04/20 23:20 71 16 30 03/04/20 23:00 60 18 93/39 (57) 100 03/04/20 22:00 63 17 94/71 (79) 99 03/04/20 21:33 63 17 30 03/04/20 21:00 59 13 122/68 (86) 99 03/04/20 20:00 Mechanical Ventilator 03/04/20 20:00 98.0 62 17 114/49 (70) 98 03/04/20 20:00 30 03/04/20 20:00 69 03/04/20 19:44 63 18 30 03/04/20 19:00 63 11 124/49 (74) 98 03/04/20 18:00 68 16 116/60 (78) 100 03/04/20 17:28 74 20 30 03/04/20 17:00 65 17 135/53 (80) 99 03/04/20 16:00 Mechanical Ventilator 03/04/20 16:00 98.0 65 16 120/38 (65) 99 03/04/20 16:00 30 03/04/20 16:00 70 03/04/20 15:30 62 16 30 03/04/20 15:00 64 16 122/47 (72) 99 03/04/20 14:00 63 16 107/50 (69) 96 03/04/20 13:03 66 16 30 03/04/20 13:00 60 17 109/46 (67) 99 03/04/20 12:00 64 03/04/20 12:00 Mechanical Ventilator 03/04/20 12:00 30 03/04/20 12:00 98.5 62 16 126/52 (76) 100 03/04/20 11:17 63 16 30 03/04/20 11:00 54 16 129/53 (78) 100 Status: awake Condition: critical, improving HEENT: atraumatic Lungs: clear Heart: HR/BP stable Abdomen: soft, active bowel sounds Extremities: no C/C/E Decubiti: location Accucheck: 101 Critical Care - Subjective ROS Limited/Unobtainable: Yes Interval Events: self extubated, doing fine since last night FI02: 30 Vent Support Breath Rate: 16 Vent Support Mode: AC Vent Tidal Volume: 600 Sputum Amount: Small PEEP: 0.0 PIP: 21 Tube Feeding Amount: 35 I&O: Intake and Output 03/04/20 03/05/20 19:00 07:00 Intake Total 651 ml 375 ml Output Total 115 ml 3050 ml Balance 536 ml -2675 ml Intake Free Water 210 ml 60 ml IV Total 56 ml Tube Feeding 385 ml 315 ml Output Urine Total 115 ml 50 ml Hemodialysis UF 3000 ml # Bowel Movements 7 ET-Tube: 7.5 ET Position: 25 Labs: Laboratory Tests Test 03/04/20 15:40 03/05/20 03:00 03/05/20 05:00 03/05/20 08:31 Random Vancomycin Level 21.8 ug/mL 15.0 ug/mL Sodium Level 141 MMOL/L (136-145) Potassium Level 3.5 MMOL/L (3.5-5.1) Chloride Level 95 MMOL/L (98-107) L Carbon Dioxide Level 35 MMOL/L (21-32) H Anion Gap 11 mmol/L (5-15) Blood Urea Nitrogen 42 mg/dL (7-18) H Creatinine 4.8 MG/DL (0.55-1.30) H Estimat Glomerular Filtration Rate 11.2 mL/min (>60) Glucose Level 67 MG/DL (74-106) L Uric Acid 2.3 MG/DL (2.6-7.2) L Calcium Level 9.0 MG/DL (8.5-10.1) Phosphorus Level 2.9 MG/DL (2.5-4.9) Magnesium Level 2.7 MG/DL (1.8-2.4) H Total Bilirubin 0.9 MG/DL (0.2-1.0) Aspartate Amino Transf (AST/SGOT) 66 U/L (15-37) H Alanine Aminotransferase (ALT/SGPT) 39 U/L (12-78) Alkaline Phosphatase 314 U/L (46-116) H Lactate Dehydrogenase 370 U/L (81-234) H C-Reactive Protein, Quantitative 7.6 mg/dL (0.00-0.90) H Pro-B-Type Natriuretic Peptide > 26149 pg/mL (0-125) H Total Protein 7.6 G/DL (6.4-8.2) Albumin 3.2 G/DL (3.4-5.0) L Globulin 4.4 g/dL Albumin/Globulin Ratio 0.7 (1.0-2.7) L White Blood Count 10.8 K/UL (4.8-10.8) Red Blood Count 4.06 M/UL (4.20-5.40) L Hemoglobin 9.4 G/DL (12.0-16.0) L Hematocrit 30.3 % (37.0-47.0) L Mean Corpuscular Volume 75 FL (80-99) L Mean Corpuscular Hemoglobin 23.1 PG (27.0-31.0) L Mean Corpuscular Hemoglobin Concent 30.9 G/DL (32.0-36.0) L Red Cell Distribution Width 15.1 % (11.6-14.8) H Platelet Count 337 K/UL (150-450) Mean Platelet Volume 6.2 FL (6.5-10.1) L Neutrophils (%) (Auto) 70.4 % (45.0-75.0) Lymphocytes (%) (Auto) 12.6 % (20.0-45.0) L Monocytes (%) (Auto) 13.1 % (1.0-10.0) H Eosinophils (%) (Auto) 3.4 % (0.0-3.0) H Basophils (%) (Auto) 0.4 % (0.0-2.0) D-Dimer 4.04 mg/L FEU (0.00-0.49) H Arterial Blood pH 7.467 (7.350-7.450) Arterial Blood Partial Pressure CO2 46.6 mmHg (35.0-45.0) H Arterial Blood Partial Pressure O2 77.1 mmHg (75.0-100.0) Arterial Blood HCO3 32.9 mmol/L (22.0-26.0) H Arterial Blood Oxygen Saturation 94.3 % (95-100) L Arterial Blood Base Excess 8.3 (-2-2) H Lester Test Positive Meghana Murillo MD Mar 05, 2020 10:50
--- NOTE | 2020-03-05 11:07 | NUR ---
CASE MANAGEMENT: REVIEW SI: (((COVID-19 VIRUS DETECTED))) ACUTE RESP FAILURE . ESRD on HD . UTI 98.0 69 25 108/52 100% MECH VENT FIO2 30 H/H 9.4/30.3 CL-95 CO2-35 BUN 42CREAT 4.8 BG 67 URIC ACID 2.3 MG 2.7 AST 66 ALKP 314 LDH 370 CRPRO 7.6 BNP 76643 IS:IV THIAMINE Q24HR VITAMIN B6 GT QD RENVELA NG Q6HR EPOETIN SUBQ MWF IV PROTONIX BID LIPITOR NG QHS HEPARIN SQ BID HYDRALAZINE Q4HR/PRN GT FEEDING CHEST [id number] bilateral interstitial and airspace infiltrates versus edema \: ICU STATUS DCP: [facility]IENT IS [facility]: WEANING TO 2L NC
--- NOTE | 2020-03-05 11:23 | Nephrology Progress Note ---
Assessment/Plan Problem List: (1) Acute respiratory failure (2) ESRD (end stage renal disease) on dialysis (3) UTI (urinary tract infection) (4) Patient is Voodoo (5) Pacemaker (6) Diabetes (7) Obesity (BMI 30-39.9) Assessment ARDS (adult respiratory distress syndrome) Fever Sepsis UTI (urinary tract infection) Respiratory failure, intubated on ventilator Thrombocytopenia Lymphopenia End stage renal disease on dialysis. Has a right upper arm dialysis fistula as Acces . Getting dialysis Sunday. morbid obesity Anemia / Jehova's witness CAD previous stent HTN- hypertensive urgency upon arrival to [facility]. s/p AVG DM 2 bilateral eye blindness h/o CHF Pacemaker Plan Patient extubated last night March 04 Patient positive for Covid 19 Per ID and pulmonary, Last dialyzed March 04 next dialysis March 06 EPO, thiamin and b6 Phos binders NGT feeding per consultants Remains full code at this time Subjective ROS Limited/Unobtainable: Yes Objective Objective Last 24 Hour Vital Signs Date Time Temp Pulse Resp B/P (MAP) Pulse Ox O2 Delivery O2 Flow Rate FiO2 03/05/20 11:00 74 28 153/59 (90) 97 03/05/20 10:00 73 20 165/60 (95) 97 03/05/20 09:00 75 30 209/58 (108) 98 03/05/20 08:00 Nasal Cannula 1.0 03/05/20 08:00 98.4 71 25 115/91 (99) 100 03/05/20 07:00 71 21 106/40 (62) 100 03/05/20 06:00 72 31 98/66 (77) 98 03/05/20 05:00 72 22 118/42 (67) 100 03/05/20 04:00 69 03/05/20 04:00 Mechanical Ventilator 03/05/20 04:00 98.0 69 25 108/52 (70) 100 03/05/20 04:00 68 03/05/20 03:00 68 30 109/46 (67) 94 03/05/20 02:00 67 29 76/33 (47) 100 03/05/20 01:00 71 32 119/61 (80) 100 03/05/20 00:45 75 26 148/48 (81) 81 03/05/20 00:30 74 25 101/31 (54) 98 03/05/20 00:15 82 24 101/62 (75) 100 03/05/20 00:00 Mechanical Ventilator 03/05/20 00:00 98.2 115 22 129/90 (103) 100 03/05/20 00:00 70 03/04/20 23:20 71 16 30 03/04/20 23:00 60 18 93/39 (57) 100 03/04/20 22:00 63 17 94/71 (79) 99 03/04/20 21:33 63 17 30 03/04/20 21:00 59 13 122/68 (86) 99 03/04/20 20:00 Mechanical Ventilator 03/04/20 20:00 98.0 62 17 114/49 (70) 98 03/04/20 20:00 30 03/04/20 20:00 69 03/04/20 19:44 63 18 30 03/04/20 19:00 63 11 124/49 (74) 98 03/04/20 18:00 68 16 116/60 (78) 100 03/04/20 17:28 74 20 30 03/04/20 17:00 65 17 135/53 (80) 99 03/04/20 16:00 Mechanical Ventilator 03/04/20 16:00 98.0 65 16 120/38 (65) 99 03/04/20 16:00 30 03/04/20 16:00 70 03/04/20 15:30 62 16 30 03/04/20 15:00 64 16 122/47 (72) 99 03/04/20 14:00 63 16 107/50 (69) 96 03/04/20 13:03 66 16 30 03/04/20 13:00 60 17 109/46 (67) 99 03/04/20 12:00 64 03/04/20 12:00 Mechanical Ventilator 03/04/20 12:00 30 03/04/20 12:00 98.5 62 16 126/52 (76) 100 Intake and Output 03/04/20 03/05/20 19:00 07:00 Intake Total 651 ml 375 ml Output Total 115 ml 3050 ml Balance 536 ml -2675 ml Intake Free Water 210 ml 60 ml IV Total 56 ml Tube Feeding 385 ml 315 ml Output Urine Total 115 ml 50 ml Hemodialysis UF 3000 ml # Bowel Movements 7 Laboratory Tests 03/04/20 15:40: Random Vancomycin Level 21.8 03/05/20 03:00: Random Vancomycin Level 15.0, Sodium Level 141, Potassium Level 3.5, Chloride Level 95L, Carbon Dioxide Level 35H, Anion Gap 11, Blood Urea Nitrogen 42H, Creatinine 4.8H, Estimat Glomerular Filtration Rate 11.2, Glucose Level 67L, Uric Acid 2.3L, Calcium Level 9.0, Phosphorus Level 2.9, Magnesium Level 2.7H, Total Bilirubin 0.9, Aspartate Amino Transf (AST/SGOT) 66H, Alanine Aminotransferase (ALT/SGPT) 39, Alkaline Phosphatase 314H, Lactate Dehydrogenase 370H, C-Reactive Protein, Quantitative 7.6H, Pro-B-Type Natriuretic Peptide > 03148U, Total Protein 7.6, Albumin 3.2L, Globulin 4.4, Albumin/Globulin Ratio 0.7L 03/05/20 05:00: White Blood Count 10.8, Red Blood Count 4.06L, Hemoglobin 9.4L, Hematocrit 30.3L , Mean Corpuscular Volume 75L, Mean Corpuscular Hemoglobin 23.1L, Mean Corpuscular Hemoglobin Concent 30.9L, Red Cell Distribution Width 15.1H, Platelet Count 337, Mean Platelet Volume 6.2L, Neutrophils (%) (Auto) 70.4, Lymphocytes (%) (Auto) 12.6L, Monocytes (%) (Auto) 13.1H, Eosinophils (%) (Auto ) 3.4H, Basophils (%) (Auto) 0.4, D-Dimer 4.04H 03/05/20 08:31: Arterial Blood pH 7.467H, Arterial Blood Partial Pressure CO2 46.6H, Arterial Blood Partial Pressure O2 77.1, Arterial Blood HCO3 32.9H, Arterial Blood Oxygen Saturation 94.3L, Arterial Blood Base Excess 8.3H, Lester Test Positive Height (Feet): 5 Height (Inches): 7.00 Weight (Pounds): 242 General Appearance: no apparent distress, lethargic EENT: other - Patient now extubated Cardiovascular: normal rate Respiratory/Chest: decreased breath sounds Abdomen: distended Bryan Hunter MD Mar 05, 2020 11:23
--- NOTE | 2020-03-05 11:31 | NUR ---
NURSE NOTES: Pt pulling at OGT. Ran into room and fixed restraints so patient does not pull out tube.
[2020-03-05] MEDS ORDERED: Heparin 1000 units/ml 1ml Vial INJ SCH (12:00)
[2020-03-05] MEDS: Thiamine HCl 100 MG in D5W 55 ML IVPB SCH (12:19)
--- NOTE | 2020-03-05 14:33 | NUR ---
NURSE NOTES: Spoke with [facility] and scheduled pt's dialysis for tomorrow per Dr. Hunter's order.
--- NOTE | 2020-03-05 15:48 | NUR ---
Dr Gay changed Vent setting to AC28, PC 13, PEEP 16 and rise time to 60%. Verbal order of ABG @ 7243. Addendum: 03/05/20 at 1551 by JESSE CASTILLO RT Wrong entry wrong pt.
--- NOTE | 2020-03-05 16:29 | Cardiology Progress Note ---
Assessment/Plan Assessment/Plan 1. Respiratory failure. 2. History of obesity hypoventilation syndrome. 3. History of pulmonary hypertension previously. 4. Urinary tract infection. 5. covid 19 infection confimred 6. pneumonia. 7. History of bacteremia with Staph epi recently on 02/05/2020. i did not examine pt personally i did not feel the risk to me personally are worth the limited information that could be obtained while pt is not communicative and on a vent with confirmed covid 19 tele reviewed sinus and atrial paced d/w rn saturation are ok self extubated over nite looks fine no cough no fever no diarrhea sats are 99- 100% on 30% fio2 on abx holding off in ordering echo at this time due to active covid 19 infecion all labs reviewed wbc seems higher no weaning yet they await dilaysis bp readings are performed on the left leg adn accuracy in question , i would expect higher reading in lower ext anyway seem agitated today Subjective ROS Limited/Unobtainable: Yes Subjective on a vent Objective Last 24 Hour Vital Signs Date Time Temp Pulse Resp B/P (MAP) Pulse Ox O2 Delivery O2 Flow Rate FiO2 03/05/20 15:00 70 22 170/46 (87) 96 03/05/20 14:00 70 24 156/69 (98) 96 03/05/20 13:00 73 19 179/70 (106) 98 03/05/20 12:45 71 26 176/79 (111) 98 03/05/20 12:00 69 03/05/20 12:00 Nasal Cannula 1.0 03/05/20 12:00 98.2 67 35 155/55 (88) 97 03/05/20 11:00 74 28 153/59 (90) 97 03/05/20 10:00 73 20 165/60 (95) 97 03/05/20 09:00 75 30 209/58 (108) 98 03/05/20 08:00 Nasal Cannula 1.0 03/05/20 08:00 98.4 71 25 115/91 (99) 100 03/05/20 08:00 73 03/05/20 07:00 71 21 106/40 (62) 100 03/05/20 06:55 100 Nasal Cannula 2.0 28 03/05/20 06:00 72 31 98/66 (77) 98 03/05/20 05:00 72 22 118/42 (67) 100 03/05/20 04:00 69 03/05/20 04:00 Mechanical Ventilator 03/05/20 04:00 98.0 69 25 108/52 (70) 100 03/05/20 04:00 68 03/05/20 03:00 68 30 109/46 (67) 94 03/05/20 02:00 67 29 76/33 (47) 100 03/05/20 01:00 71 32 119/61 (80) 100 03/05/20 00:45 75 26 148/48 (81) 81 03/05/20 00:30 74 25 101/31 (54) 98 03/05/20 00:15 82 24 101/62 (75) 100 03/05/20 00:00 Mechanical Ventilator 03/05/20 00:00 98.2 115 22 129/90 (103) 100 03/05/20 00:00 70 03/04/20 23:20 71 16 30 03/04/20 23:00 60 18 93/39 (57) 100 03/04/20 22:00 63 17 94/71 (79) 99 03/04/20 21:33 63 17 30 03/04/20 21:00 59 13 122/68 (86) 99 03/04/20 20:00 Mechanical Ventilator 03/04/20 20:00 98.0 62 17 114/49 (70) 98 03/04/20 20:00 30 03/04/20 20:00 69 03/04/20 19:44 63 18 30 03/04/20 19:00 63 11 124/49 (74) 98 03/04/20 18:00 68 16 116/60 (78) 100 03/04/20 17:28 74 20 30 03/04/20 17:00 65 17 135/53 (80) 99 General Appearance: no apparent distress, patient on isolation, isolation precautions, other - self extubated but is doign well Intake and Output 03/04/20 03/05/20 19:00 07:00 Intake Total 651 ml 375 ml Output Total 115 ml 3050 ml Balance 536 ml -2675 ml Intake Free Water 210 ml 60 ml IV Total 56 ml Tube Feeding 385 ml 315 ml Output Urine Total 115 ml 50 ml Hemodialysis UF 3000 ml # Bowel Movements 7 Laboratory Tests Test 03/05/20 03:00 03/05/20 05:00 03/05/20 08:31 Sodium Level 141 MMOL/L (136-145) Potassium Level 3.5 MMOL/L (3.5-5.1) Chloride Level 95 MMOL/L (98-107) L Carbon Dioxide Level 35 MMOL/L (21-32) H Anion Gap 11 mmol/L (5-15) Blood Urea Nitrogen 42 mg/dL (7-18) H Creatinine 4.8 MG/DL (0.55-1.30) H Estimat Glomerular Filtration Rate 11.2 mL/min (>60) Glucose Level 67 MG/DL (74-106) L Uric Acid 2.3 MG/DL (2.6-7.2) L Calcium Level 9.0 MG/DL (8.5-10.1) Phosphorus Level 2.9 MG/DL (2.5-4.9) Magnesium Level 2.7 MG/DL (1.8-2.4) H Total Bilirubin 0.9 MG/DL (0.2-1.0) Aspartate Amino Transf (AST/SGOT) 66 U/L (15-37) H Alanine Aminotransferase (ALT/SGPT) 39 U/L (12-78) Alkaline Phosphatase 314 U/L (46-116) H Lactate Dehydrogenase 370 U/L (81-234) H C-Reactive Protein, Quantitative 7.6 mg/dL (0.00-0.90) H Pro-B-Type Natriuretic Peptide > 37184 pg/mL (0-125) H Total Protein 7.6 G/DL (6.4-8.2) Albumin 3.2 G/DL (3.4-5.0) L Globulin 4.4 g/dL Albumin/Globulin Ratio 0.7 (1.0-2.7) L Random Vancomycin Level 15.0 ug/mL White Blood Count 10.8 K/UL (4.8-10.8) Red Blood Count 4.06 M/UL (4.20-5.40) L Hemoglobin 9.4 G/DL (12.0-16.0) L Hematocrit 30.3 % (37.0-47.0) L Mean Corpuscular Volume 75 FL (80-99) L Mean Corpuscular Hemoglobin 23.1 PG (27.0-31.0) L Mean Corpuscular Hemoglobin Concent 30.9 G/DL (32.0-36.0) L Red Cell Distribution Width 15.1 % (11.6-14.8) H Platelet Count 337 K/UL (150-450) Mean Platelet Volume 6.2 FL (6.5-10.1) L Neutrophils (%) (Auto) 70.4 % (45.0-75.0) Lymphocytes (%) (Auto) 12.6 % (20.0-45.0) L Monocytes (%) (Auto) 13.1 % (1.0-10.0) H Eosinophils (%) (Auto) 3.4 % (0.0-3.0) H Basophils (%) (Auto) 0.4 % (0.0-2.0) D-Dimer 4.04 mg/L FEU (0.00-0.49) H Arterial Blood pH 7.467 (7.350-7.450) Arterial Blood Partial Pressure CO2 46.6 mmHg (35.0-45.0) H Arterial Blood Partial Pressure O2 77.1 mmHg (75.0-100.0) Arterial Blood HCO3 32.9 mmol/L (22.0-26.0) H Arterial Blood Oxygen Saturation 94.3 % (95-100) L Arterial Blood Base Excess 8.3 (-2-2) H Lester Test Positive Wilfredo Reyna MD Mar 05, 2020 16:29
--- NOTE | 2020-03-05 18:04 | NUR ---
NURSE NOTES: Pt had diarrhea and was moving up in down in bed, because it was hurting. Pt's sacral area and buttocks are bleeding. Pt cleaned and repositioned. Triad cream applied generously to area.
--- NOTE | 2020-03-05 19:13 | NUR ---
NURSE NOTES: Per Dr. Jim, start to titrate patient off of propofol drip for weening in the morning. Made night nurse aware. Addendum: 03/05/20 at 4 by Alexandra Odom RN WRONG PATIENT
--- NOTE | 2020-03-05 19:32 | NUR ---
HAND-OFF: Report given to NATHALIA Ramirez. Pt in stable condition; plan of care endorsed.
--- NOTE | 2020-03-05 20:00 | NUR ---
Report received from NATHALIA Morris for continuity of care. Pt remains at same condition from change of shift. Pt follows basic commands and responds to pain. Pt laying in bed, no signs of acute distress. Pt on 1L NC with O2 at >94%. Pt removing NC with tongue. Pacemaker noted. LT upper arm PICC; flushes well. Tyler cath patent; less than 20cc urine noted. OGT patent, on Nepro at 35cc/hr, no residual noted. Pt is on bilateral soft wrist restraints due to pulling on medical devices. Per AM nurse, pt is scheduled for dialysis 03/06. All safety measures met; will continue to monitor. Addendum: 03/05/20 at 2254 by Ashley Gaytan RN Pt did not have a fever of 102.2F axillary temperature as documented in the Q1hr vitals. Pt temperature 98.1F axillary. Pt is afebrile.
[2020-03-05] MEDS: Dyna-Hex 2% Top Sol 2oz TOPIC SCH (20:24)
[2020-03-05] MEDS: Epoetin Alfa-EPBX(ESRD on dialysis)10,000 unit/ml vial SUBQ SCH (21:10)
--- NOTE | 2020-03-05 22:00 | NUR ---
Nurse Note: Pt remains at baseline condition. No resp distress on 1L NC. Pt had one medium sized loose BM; skin reddened and excoriation. Skin cleaned and paste wound care cream applied. Urine output less than 20cc. All safety measures met; will continue to monitor.
[2020-03-06] VITALS (24 sets, daily range): BP systolic 124–192; BP diastolic 52–96
--- NOTE | 2020-03-06 | NUR ---
Nurse Note: Pt remains at baseline. SBP ranges from 150-180 mmhg. Pt denies pain, does not show resp distress. Pt on 1L NC; O2 >94%. Pt removes NC with tongue and attempts to remove OGT with tongue. Bilateral soft wrist restraints remain intact d/t trying to pull out medical devices. Pt able to move lower extremities. Little to no urine output. All safety measures met; will continue to monitor.
[2020-03-06] MEDS: Renvela 800mg Pkt NG SCH ×4 (00:07→17:30)
[2020-03-06] MEDS: NovoLOG Insulin Flexpen SUBQ SCH ×4 (00:23→17:29)
--- NOTE | 2020-03-06 03:00 | NUR ---
Nurse Note: SBP >160; hydralazine pulled out from Pyxis and about to administer; recycled BP, 157/96. hydralazine not administered and returned to xis. Pt shows anxiety with kicking, moaning, and elevated VS; PRN Ativan to give. Pt kept clean and dry. All safety measures met; will continue to monitor.
[2020-03-06] MEDS: LORazepam Inj 2mg/ml 1ml IV PRN ×2 (03:05→21:20)
--- NOTE | 2020-03-06 06:00 | NUR ---
Pt remains at same condition from change of shift. Pt nonverbal, responds to deep pain. Pt laying in bed, no signs of acute distress. Pt on vent, ETT 7.5, 21cm at lip, VT400, FiO2 40% and Peep of 5. Right IJ running propofol drip @ 3 mcg; BP controlled. Per MD orders, titrate propofol to wean pt off drip. G-tube in place with 20cc of Glucernia 1.2, no residual noted. Tyler cath patent, urine output present. Tyler care completed. One BM on shift; large, soft. All safety measures met; will continue to monitor. Addendum: 03/06/20 at 1954 by Ashley Gaytan RN Incorrect pt. Disregard.
[2020-03-06 06:46] LABS: BASOPHILS % (AUTO) 0.4 % (0.0-2.0); EOSINOPHILS % (AUTO) 5.6 % (0.0-3.0); HEMATOCRIT 30.1 % (37.0-47.0); HEMOGLOBIN 9.5 G/DL (12.0-16.0); LYMPHOCYTES % (AUTO) 14.7 % (20.0-45.0); MEAN CORPUSCULAR VOLUME 75 FL (80-99); MONOCYTES % (AUTO) 11.5 % (1.0-10.0); NEUTROPHILS % (AUTO) 67.9 % (45.0-75.0); PLATELET COUNT 352 K/UL (150-450); RED BLOOD COUNT 4.03 M/UL (4.20-5.40); WHITE BLOOD COUNT 10.1 K/UL (4.8-10.8)
--- NOTE | 2020-03-06 07:22 | NUR ---
Nurse Note: Report given to NATHALIA Marquez for continuity of care.
[2020-03-06 07:24] LABS: ANION GAP 13 mmol/L (5-15); BLOOD UREA NITROGEN 61 mg/dL (7-18); CALCIUM 9.2 MG/DL (8.5-10.1); CARBON DIOXIDE 30 MMOL/L (21-32); CHLORIDE 96 MMOL/L (98-107); CREATININE 7.3 MG/DL (0.55-1.30); POTASSIUM 4.2 MMOL/L (3.5-5.1); SODIUM 139 MMOL/L (136-145)
[2020-03-06] MEDS ORDERED: Albuterol/Ipratropium 3ml neb HHN PRN (08:00)
--- NOTE | 2020-03-06 08:03 | Pulmonolgy Critical Care Note ---
Critical Care - Asmt/Plan Assessment/Plan: ASSESSMENT COVID 19 pneumonia Acute respiratory failure requiring intubation, secondary to COVID 19 infection , status post self extubation Persistent bacteremia with recurrent fevers -presumed SBE ESRD, on HD Diabetes mellitus Hypertension Pacemaker Jehovah witness Obesity hypoventilation syndrome PLAN of CARE in ICU self extubated ABG stable, pulse ox OK O2 HHN PRN fup CXR noted, stable IV Vanco for 6-week for SBE as per ID recs Echo from [facility] w/out evidence of vegetation ( per cardio patient at high risk to have CLAY ) UCX with Candice - likely colonizer -per ID s/p Plaquenil and azithromycin for 5 days influenza screen NGT dialysis as per nephro with close monitoring of volumes and renal parameters DVT, GI prophylaxis keep in ICU for now case discussed and evaluated by supervising physician Critical Care - Objective Last 24 Hour Vital Signs Date Time Temp Pulse Resp B/P (MAP) Pulse Ox O2 Delivery O2 Flow Rate FiO2 03/06/20 07:00 99 15 175/87 (116) 96 03/06/20 06:00 76 21 175/75 (108) 97 03/06/20 05:00 69 21 154/66 (95) 96 03/06/20 04:00 97.7 77 15 164/86 (112) 99 03/06/20 04:00 Nasal Cannula 1.0 03/06/20 04:00 71 03/06/20 03:00 74 19 157/96 (116) 97 03/06/20 02:00 82 18 167/52 (90) 98 03/06/20 01:00 73 28 154/55 (88) 97 03/06/20 00:00 97.7 74 26 160/58 (92) 96 03/06/20 00:00 Nasal Cannula 1.0 03/05/20 23:00 77 33 170/73 (105) 94 03/05/20 22:00 79 28 165/52 (89) 96 03/05/20 21:00 77 28 162/58 (92) 96 03/05/20 20:00 75 03/05/20 20:00 Nasal Cannula 1.0 03/05/20 20:00 102.2 75 28 177/63 (101) 96 03/05/20 19:27 99 Nasal Cannula 2.0 28 03/05/20 19:00 76 32 175/61 (99) 95 03/05/20 18:00 79 16 154/125 (135) 99 03/05/20 17:00 70 34 177/70 (105) 96 03/05/20 16:00 Nasal Cannula 1.0 03/05/20 16:00 98.5 77 19 168/60 (96) 97 03/05/20 16:00 71 03/05/20 15:00 70 22 170/46 (87) 96 03/05/20 14:00 70 24 156/69 (98) 96 03/05/20 13:00 73 19 179/70 (106) 98 03/05/20 12:45 71 26 176/79 (111) 98 03/05/20 12:00 69 03/05/20 12:00 Nasal Cannula 1.0 03/05/20 12:00 98.2 67 35 155/55 (88) 97 03/05/20 11:00 74 28 153/59 (90) 97 03/05/20 10:00 73 20 165/60 (95) 97 03/05/20 09:00 75 30 209/58 (108) 98 03/05/20 08:00 Nasal Cannula 1.0 03/05/20 08:00 98.4 71 25 115/91 (99) 100 03/05/20 08:00 73 Status: awake Condition: critical HEENT: atraumatic, other - O2 via NC Heart: HR/BP stable, other - PICC LUE intact Abdomen: soft, non-tender, active bowel sounds, feeding tube Extremities: edema - trace edema BLE Accucheck: 118 Critical Care - Subjective Interval Events: s/p self extubation ABG and pulse ox stable no fevers , no leukocytosis Condition: critical IV Access: PICC - LUE intact EKG Rhythm: Sinus Rhythm FI02: 28 Vent Tidal Volume: 600 Sputum Amount: Small PEEP: 0.0 PIP: 21 Tube Feeding Amount: 35 I&O: Intake and Output 03/05/20 03/06/20 19:00 07:00 Intake Total 385 ml 676 ml Output Total 90 ml 66 ml Balance 295 ml 610 ml Intake Free Water 200 ml IV Total 56 ml Tube Feeding 385 ml 420 ml Output Urine Total 90 ml 66 ml # Bowel Movements 4 4 CXR: 03/05 -Stable to minimally worsened bilateral interstitial and airspace infiltrates versus edema ET-Tube: 7.5 ET Position: 25 Chastity Velasco GROUNDS/MAINTENANCE SPECIALIST Mar 06, 2020 08:03
--- NOTE | 2020-03-06 08:45 | NUR ---
NURSE NOTES: Chastity Velasco updated on Patient status and condition this morning. no verbal orders given at this time.
--- NOTE | 2020-03-06 08:53 | General Progress Note ---
Assessment/Plan Problem List: (1) Obesity (BMI 30-39.9) ICD Codes: E66.9 - Obesity, unspecified SNOMED: 658887343, 624615064 (2) COVID-19 virus infection ICD Codes: U07.1 - COVID-19 SNOMED: 025575480 (3) Acute respiratory failure ICD Codes: J96.00 - Acute respiratory failure, unspecified whether with hypoxia or hypercapnia SNOMED: 79995191 (4) Blindness of both eyes ICD Codes: H54.0 - Blindness SNOMED: 744053865 (5) ESRD (end stage renal disease) on dialysis ICD Codes: N18.6 - End stage renal disease; Z99.2 - Dependence on renal dialysis SNOMED: 582875260 (6) Anemia ICD Codes: D64.9 - Anemia, unspecified SNOMED: 781838886 (7) Diabetes ICD Codes: E11.9 - Type 2 diabetes mellitus without complications SNOMED: 57328013 (8) AMS (altered mental status) ICD Codes: R41.82 - Altered mental status, unspecified SNOMED: 085549376 Status: unchanged Assessment/Plan: vent abx dialysis cbc bmp am ltach eval Subjective Allergies: Coded Allergies: NO KNOWN ALLERGIES (Unverified Allergy, Unknown, 10/15/15) All Systems: reviewed and negative except above Subjective og tube o2 nc in icu Objective Last 24 Hour Vital Signs Date Time Temp Pulse Resp B/P (MAP) Pulse Ox O2 Delivery O2 Flow Rate FiO2 03/06/20 07:00 99 15 175/87 (116) 96 03/06/20 06:00 76 21 175/75 (108) 97 03/06/20 05:00 69 21 154/66 (95) 96 03/06/20 04:00 97.7 77 15 164/86 (112) 99 03/06/20 04:00 Nasal Cannula 1.0 03/06/20 04:00 71 03/06/20 03:00 74 19 157/96 (116) 97 03/06/20 02:00 82 18 167/52 (90) 98 03/06/20 01:00 73 28 154/55 (88) 97 03/06/20 00:00 97.7 74 26 160/58 (92) 96 03/06/20 00:00 Nasal Cannula 1.0 03/05/20 23:00 77 33 170/73 (105) 94 03/05/20 22:00 79 28 165/52 (89) 96 03/05/20 21:00 77 28 162/58 (92) 96 03/05/20 20:00 75 03/05/20 20:00 Nasal Cannula 1.0 03/05/20 20:00 102.2 75 28 177/63 (101) 96 03/05/20 19:27 99 Nasal Cannula 2.0 28 03/05/20 19:00 76 32 175/61 (99) 95 03/05/20 18:00 79 16 154/125 (135) 99 03/05/20 17:00 70 34 177/70 (105) 96 03/05/20 16:00 Nasal Cannula 1.0 03/05/20 16:00 98.5 77 19 168/60 (96) 97 03/05/20 16:00 71 03/05/20 15:00 70 22 170/46 (87) 96 03/05/20 14:00 70 24 156/69 (98) 96 03/05/20 13:00 73 19 179/70 (106) 98 03/05/20 12:45 71 26 176/79 (111) 98 03/05/20 12:00 69 03/05/20 12:00 Nasal Cannula 1.0 03/05/20 12:00 98.2 67 35 155/55 (88) 97 03/05/20 11:00 74 28 153/59 (90) 97 03/05/20 10:00 73 20 165/60 (95) 97 03/05/20 09:00 75 30 209/58 (108) 98 Intake and Output 03/05/20 03/06/20 19:00 07:00 Intake Total 385 ml 676 ml Output Total 90 ml 66 ml Balance 295 ml 610 ml Intake Free Water 200 ml IV Total 56 ml Tube Feeding 385 ml 420 ml Output Urine Total 90 ml 66 ml # Bowel Movements 4 4 Laboratory Tests 03/06/20 05:10: White Blood Count 10.1, Red Blood Count 4.03L, Hemoglobin 9.5L, Hematocrit 30.1L , Mean Corpuscular Volume 75L, Mean Corpuscular Hemoglobin 23.6L, Mean Corpuscular Hemoglobin Concent 31.6L, Red Cell Distribution Width 15.0H, Platelet Count 352, Mean Platelet Volume 6.2L, Neutrophils (%) (Auto) 67.9, Lymphocytes (%) (Auto) 14.7L, Monocytes (%) (Auto) 11.5H, Eosinophils (%) (Auto ) 5.6H, Basophils (%) (Auto) 0.4, Sodium Level 139, Potassium Level 4.2, Chloride Level 96L, Carbon Dioxide Level 30, Anion Gap 13, Blood Urea Nitrogen 61H, Creatinine 7.3#H, Estimat Glomerular Filtration Rate 6.8, Glucose Level 109H, Calcium Level 9.2 Height (Feet): 5 Height (Inches): 7.00 Weight (Pounds): 243 General Appearance: lethargic EENT: normal ENT inspection Neck: normal alignment Cardiovascular: normal rate, regular rhythm Extremities: normal inspection Skin: normal pigmentation Roderick Henning Mar 06, 2020 08:53
[2020-03-06] MEDS: Heparin 5000 units/ml inj SUBQ SCH ×2 (09:00→22:12)
[2020-03-06] MEDS: Pantoprazole Inj IVP SCH ×2 (09:09→21:19)
[2020-03-06] MEDS: Pyridoxine 50mg tab NG SCH (09:09)
--- NOTE | 2020-03-06 10:15 | NUR ---
NURSE NOTES: Dr. Hunter made aware of hemodialysis will be conducted this evening at around 1800. confirmed with [facility] dialysis nurse. no verbal orders given at this time.
--- NOTE | 2020-03-06 11:15 | NUR ---
NURSE NOTES: Dr. Henning rounded on patient, he was updated on patient progress and respiratory status. no verbal orders given at this time.
--- NOTE | 2020-03-06 11:25 | Nephrology Progress Note ---
Assessment/Plan Problem List: (1) Acute respiratory failure (2) ESRD (end stage renal disease) on dialysis (3) UTI (urinary tract infection) (4) Patient is Zoroastrianism (5) Pacemaker (6) Diabetes (7) Obesity (BMI 30-39.9) Assessment ARDS (adult respiratory distress syndrome) Fever Sepsis UTI (urinary tract infection) Respiratory failure, intubated on ventilator Thrombocytopenia Lymphopenia End stage renal disease on dialysis. Has a right upper arm dialysis fistula as Acces . Getting dialysis Sunday. morbid obesity Anemia / Jehova's witness CAD previous stent HTN- hypertensive urgency upon arrival to [facility]. s/p AVG DM 2 bilateral eye blindness h/o CHF Pacemaker Plan Patient extubated last night March 04 Patient positive for Covid 19 Per ID and pulmonary, Last dialyzed March 04 next dialysis March 06 EPO, thiamin and b6 Phos binders NGT feeding per consultants Remains full code at this time Subjective ROS Limited/Unobtainable: No Constitutional: Reports: malaise, weakness Objective Objective Last 24 Hour Vital Signs Date Time Temp Pulse Resp B/P (MAP) Pulse Ox O2 Delivery O2 Flow Rate FiO2 03/06/20 08:00 Nasal Cannula 1.0 03/06/20 08:00 80 03/06/20 07:00 99 15 175/87 (116) 96 03/06/20 06:00 76 21 175/75 (108) 97 03/06/20 05:00 69 21 154/66 (95) 96 03/06/20 04:00 97.7 77 15 164/86 (112) 99 03/06/20 04:00 Nasal Cannula 1.0 03/06/20 04:00 71 03/06/20 03:00 74 19 157/96 (116) 97 03/06/20 02:00 82 18 167/52 (90) 98 03/06/20 01:00 73 28 154/55 (88) 97 03/06/20 00:00 97.7 74 26 160/58 (92) 96 03/06/20 00:00 Nasal Cannula 1.0 03/05/20 23:00 77 33 170/73 (105) 94 03/05/20 22:00 79 28 165/52 (89) 96 03/05/20 21:00 77 28 162/58 (92) 96 03/05/20 20:00 75 03/05/20 20:00 Nasal Cannula 1.0 03/05/20 20:00 102.2 75 28 177/63 (101) 96 03/05/20 19:27 99 Nasal Cannula 2.0 28 03/05/20 19:00 76 32 175/61 (99) 95 03/05/20 18:00 79 16 154/125 (135) 99 03/05/20 17:00 70 34 177/70 (105) 96 03/05/20 16:00 Nasal Cannula 1.0 03/05/20 16:00 98.5 77 19 168/60 (96) 97 03/05/20 16:00 71 03/05/20 15:00 70 22 170/46 (87) 96 03/05/20 14:00 70 24 156/69 (98) 96 03/05/20 13:00 73 19 179/70 (106) 98 03/05/20 12:45 71 26 176/79 (111) 98 03/05/20 12:00 69 03/05/20 12:00 Nasal Cannula 1.0 03/05/20 12:00 98.2 67 35 155/55 (88) 97 Intake and Output 03/05/20 03/06/20 19:00 07:00 Intake Total 385 ml 676 ml Output Total 90 ml 66 ml Balance 295 ml 610 ml Intake Free Water 200 ml IV Total 56 ml Tube Feeding 385 ml 420 ml Output Urine Total 90 ml 66 ml # Bowel Movements 4 4 Laboratory Tests 03/06/20 05:10: White Blood Count 10.1, Red Blood Count 4.03L, Hemoglobin 9.5L, Hematocrit 30.1L , Mean Corpuscular Volume 75L, Mean Corpuscular Hemoglobin 23.6L, Mean Corpuscular Hemoglobin Concent 31.6L, Red Cell Distribution Width 15.0H, Platelet Count 352, Mean Platelet Volume 6.2L, Neutrophils (%) (Auto) 67.9, Lymphocytes (%) (Auto) 14.7L, Monocytes (%) (Auto) 11.5H, Eosinophils (%) (Auto ) 5.6H, Basophils (%) (Auto) 0.4, Sodium Level 139, Potassium Level 4.2, Chloride Level 96L, Carbon Dioxide Level 30, Anion Gap 13, Blood Urea Nitrogen 61H, Creatinine 7.3#H, Estimat Glomerular Filtration Rate 6.8, Glucose Level 109H, Calcium Level 9.2 Height (Feet): 5 Height (Inches): 7.00 Weight (Pounds): 243 General Appearance: no apparent distress, agitated - At times EENT: other - Remains on nasal cannula Cardiovascular: normal rate Respiratory/Chest: decreased breath sounds Abdomen: distended Bryan Hunter MD Mar 06, 2020 11:25
--- NOTE | 2020-03-06 12:15 | NUR ---
NURSE NOTES: patient repositioned and provided pericare, patient remains on nasal cannula at 1L/min with no distress noted and saturating at 97-99%. Patient remains on tube feeding at Nepro 35ml/hr. Will continue plan of care.
[2020-03-06] MEDS: Thiamine HCl 100 MG in D5W 55 ML IVPB SCH (12:46)
--- NOTE | 2020-03-06 14:15 | NUR ---
NURSE NOTES: patient is calm and
--- NOTE | 2020-03-06 15:36 | Cardiology Progress Note ---
Assessment/Plan Assessment/Plan the patient's clinical status and labs were reviewed, and there were no new cardiac recommendations Subjective Subjective the patient is lethargic Objective Last 24 Hour Vital Signs Date Time Temp Pulse Resp B/P (MAP) Pulse Ox O2 Delivery O2 Flow Rate FiO2 03/06/20 14:00 71 28 157/61 (93) 100 03/06/20 13:00 73 29 158/67 (97) 100 03/06/20 12:07 72 03/06/20 12:00 Nasal Cannula 1.0 03/06/20 12:00 97.1 73 28 159/64 (95) 100 03/06/20 11:00 76 29 168/83 (111) 100 03/06/20 10:00 77 30 166/58 (94) 100 03/06/20 09:00 77 30 189/63 (105) 99 03/06/20 08:00 97.9 76 22 192/57 (102) 99 03/06/20 08:00 Nasal Cannula 1.0 03/06/20 08:00 80 03/06/20 07:00 99 15 175/87 (116) 96 03/06/20 06:00 76 21 175/75 (108) 97 03/06/20 05:00 69 21 154/66 (95) 96 03/06/20 04:00 97.7 77 15 164/86 (112) 99 03/06/20 04:00 Nasal Cannula 1.0 03/06/20 04:00 71 03/06/20 03:00 74 19 157/96 (116) 97 03/06/20 02:00 82 18 167/52 (90) 98 03/06/20 01:00 73 28 154/55 (88) 97 03/06/20 00:00 97.7 74 26 160/58 (92) 96 03/06/20 00:00 Nasal Cannula 1.0 03/05/20 23:00 77 33 170/73 (105) 94 03/05/20 22:00 79 28 165/52 (89) 96 03/05/20 21:00 77 28 162/58 (92) 96 03/05/20 20:00 75 03/05/20 20:00 Nasal Cannula 1.0 03/05/20 20:00 102.2 75 28 177/63 (101) 96 03/05/20 19:27 99 Nasal Cannula 2.0 28 03/05/20 19:00 76 32 175/61 (99) 95 03/05/20 18:00 79 16 154/125 (135) 99 03/05/20 17:00 70 34 177/70 (105) 96 03/05/20 16:00 Nasal Cannula 1.0 03/05/20 16:00 98.5 77 19 168/60 (96) 97 03/05/20 16:00 71 General Appearance: lethargic EENT: PERRL/EOMI Neck: normal inspection, no JVD Rhythm: ST Cardiovascular: tachycardia Respiratory/Chest: rhonchi - bilaterally, expiratory wheezing Abdomen: distended Extremities: no swelling Intake and Output 03/05/20 03/06/20 19:00 07:00 Intake Total 385 ml 676 ml Output Total 90 ml 66 ml Balance 295 ml 610 ml Intake Free Water 200 ml IV Total 56 ml Tube Feeding 385 ml 420 ml Output Urine Total 90 ml 66 ml # Bowel Movements 4 4 Laboratory Tests Test 03/06/20 05:10 White Blood Count 10.1 K/UL (4.8-10.8) Red Blood Count 4.03 M/UL (4.20-5.40) L Hemoglobin 9.5 G/DL (12.0-16.0) L Hematocrit 30.1 % (37.0-47.0) L Mean Corpuscular Volume 75 FL (80-99) L Mean Corpuscular Hemoglobin 23.6 PG (27.0-31.0) L Mean Corpuscular Hemoglobin Concent 31.6 G/DL (32.0-36.0) L Red Cell Distribution Width 15.0 % (11.6-14.8) H Platelet Count 352 K/UL (150-450) Mean Platelet Volume 6.2 FL (6.5-10.1) L Neutrophils (%) (Auto) 67.9 % (45.0-75.0) Lymphocytes (%) (Auto) 14.7 % (20.0-45.0) L Monocytes (%) (Auto) 11.5 % (1.0-10.0) H Eosinophils (%) (Auto) 5.6 % (0.0-3.0) H Basophils (%) (Auto) 0.4 % (0.0-2.0) Sodium Level 139 MMOL/L (136-145) Potassium Level 4.2 MMOL/L (3.5-5.1) Chloride Level 96 MMOL/L (98-107) L Carbon Dioxide Level 30 MMOL/L (21-32) Anion Gap 13 mmol/L (5-15) Blood Urea Nitrogen 61 mg/dL (7-18) H Creatinine 7.3 MG/DL (0.55-1.30) #H Estimat Glomerular Filtration Rate 6.8 mL/min (>60) Glucose Level 109 MG/DL (74-106) H Calcium Level 9.2 MG/DL (8.5-10.1) Evelia Cadet MD Mar 06, 2020 15:35
--- NOTE | 2020-03-06 17:25 | NUR ---
NURSE NOTES: New NG-tube placed after patient pulled out OG-tube while pericare is preformed,
--- NOTE | 2020-03-06 17:45 | NUR ---
NURSE NOTES: Abdominal X-ray taken to confirm placement of right Nares NG-tube. tube placed on first attempt with not distress to patient. remained saturating at 97-99% on 1L/min nasal cannula, patient remains awake and alert reaching for tubes. awaiting for tube placement.
--- NOTE | 2020-03-06 18:32 | Diagnostic Imaging Report ---
EXAM: XR Abdomen, 2 Views CLINICAL HISTORY: NGT TECHNIQUE: Frontal view of the abdomen/pelvis with upright view of the abdomen. COMPARISON: 03/04/20, CXR 03/01/20 FINDINGS: Lower thorax: The tip of an esophagogastric tube projects over the gastric antrum. Intraperitoneal space: No free air. Gastrointestinal tract: No significant abnormality. No dilation. Bones/joints: No significant abnormality. Other findings: Stable cardiomediastinal silhouette. IMPRESSION: The tip of an esophagogastric tube projects over the gastric antrum.
--- NOTE | 2020-03-06 19:22 | NUR ---
HAND-OFF: Report given to NATHALIA Ramirez.
--- NOTE | 2020-03-06 19:50 | NUR ---
NURSE NOTES: DARSHANA Nicolas making rounds at this time. Stated she will not have the patient Re Swabbed because patient will remain inpatient. Patient can be placed on Droplet precaution. No need for airborne isolation anymore.
--- NOTE | 2020-03-06 19:50 | NUR ---
Nurse Note: Received report from NATHALIA Marquez for continuity of care. Pt nonverbal, responds to deep pain. Pt laying in bed, no signs of acute distress. Pt on vent, ETT 7.5, 25 cm at lip, VT400, FiO2 40% and Peep of 5. Per AM nurse, pt was reintubated with ETT 7.5, 25 at lip line. Right IJ running propofol drip @ 3 mcg; BP controlled. G-tube in place with feeding Glucernia 1.2 turned off. Tyler cath patent, urine output present. All safety measures met; will continue to monitor. Addendum: 03/06/20 at 1999 by Ashley Gaytan RN Wrong pt; disregard note.
--- NOTE | 2020-03-06 20:00 | NUR ---
Nurse Note: Received report from NATHALIA Marquez for continuity of care. Pt is remains at same condition; RA, no signs of distress. Pt receiving hemodialysis with [facility]. Per AM nurse, pt no longer has OGT; NGT placed and secured with tape; feeding currently held. LT arm PICC patent. Tyler intact with little to no urine output. Per Dr. Nicolas, isolation precautions be changed to droplet precaution. All safety measures met; will continue to monitor.
--- NOTE | 2020-03-06 21:08 | Infectious Diseases Prog Note ---
Assessment/Plan Assessment/Plan The patient is a 64-year-old female with Confirmed COVID-19. SARS-CoV PCR positive. Pneumonia No leukocytosis Fever, recurrent - likely 2/2 COVID, less likely active bacterial superinfection since pt just completed empiric course of antibacterial therapy and sputum cx NG - 03/01 CXR: Worsening bilateral hazy parenchymal infiltrates, versus edema - 02/20 CXR: Mild pulmonary vascular congestion with subtle bilateral haziness, not significantly changed.Possible tiny pleural effusions. Cardiomegaly. - Bcx ngtd - sp cx normal gui Less likely UTI u/a wbc tnct, nit +, leuk +3; ucx cindy(colonizer) Hx of positive blood culture CONS ,persistent 02/04 BCx: CoNS 01/30 Bc: (1/2)CoNS and Citrobacter 01/27 , 02/01 Bc: CoNS - (outside facility, # of the +ve cultures are not clear) A 2D echo from outside facility did not show any evidence of vegetation as per Carido pt is high risk for CLAY: ( last admission ) Diabetes. CHF. ESRD. Hypertension. Obesity. PLAN: continue the patient on vancomycin, day # ? 40/42 ( will Rx for probable SBE) 02/27 SP plaquenil+azithromycin #5 / SP Ertapenem #8 02/24 DC amikacin #6 Monitor CBC. Monitor BMP. Monitor cultures (blood, Sp ) ok to DC airborne. pt is on nasal canula. continue droplet/contact isolation given persistent tenuous resp status DW RN Subjective Allergies: Coded Allergies: NO KNOWN ALLERGIES (Unverified Allergy, Unknown, 10/15/15) Subjective Febrile still on 1L NC tolerating HD no pressors Objective Vital Signs Last 24 Hour Vital Signs Date Time Temp Pulse Resp B/P (MAP) Pulse Ox O2 Delivery O2 Flow Rate FiO2 03/06/20 20:22 134 29 100 Mechanical Ventilator 30 03/06/20 20:22 100 Nasal Cannula 2.0 28 03/06/20 19:00 78 21 159/78 (105) 98 03/06/20 18:00 71 25 176/55 (95) 98 03/06/20 17:00 72 20 124/92 (103) 99 03/06/20 16:00 Nasal Cannula 1.0 03/06/20 16:00 75 03/06/20 16:00 71 22 154/92 (112) 100 03/06/20 15:00 75 29 172/61 (98) 100 03/06/20 14:00 71 28 157/61 (93) 100 03/06/20 13:00 73 29 158/67 (97) 100 03/06/20 12:07 72 03/06/20 12:00 Nasal Cannula 1.0 03/06/20 12:00 97.1 73 28 159/64 (95) 100 03/06/20 11:00 76 29 168/83 (111) 100 03/06/20 10:00 77 30 166/58 (94) 100 03/06/20 09:00 77 30 189/63 (105) 99 03/06/20 08:00 97.9 76 22 192/57 (102) 99 03/06/20 08:00 Nasal Cannula 1.0 03/06/20 08:00 80 03/06/20 07:00 99 15 175/87 (116) 96 03/06/20 06:00 76 21 175/75 (108) 97 03/06/20 05:00 69 21 154/66 (95) 96 03/06/20 04:00 97.7 77 15 164/86 (112) 99 03/06/20 04:00 Nasal Cannula 1.0 03/06/20 04:00 71 03/06/20 03:00 74 19 157/96 (116) 97 03/06/20 02:00 82 18 167/52 (90) 98 03/06/20 01:00 73 28 154/55 (88) 97 03/06/20 00:00 97.7 74 26 160/58 (92) 96 03/06/20 00:00 Nasal Cannula 1.0 03/05/20 23:00 77 33 170/73 (105) 94 03/05/20 22:00 79 28 165/52 (89) 96 Height (Feet): 5 Height (Inches): 7.00 Weight (Pounds): 243 Objective General Appearance: no acute distress. extubated HEENT: normocephalic, atraumatic. Respiratory/Chest: no respiratory distress, equal chest rise Abdomen: non distended. Tyler with sediments Neuro: awake. moving extremities. Laboratory Tests Test 03/06/20 05:10 White Blood Count 10.1 K/UL (4.8-10.8) Red Blood Count 4.03 M/UL (4.20-5.40) L Hemoglobin 9.5 G/DL (12.0-16.0) L Hematocrit 30.1 % (37.0-47.0) L Mean Corpuscular Volume 75 FL (80-99) L Mean Corpuscular Hemoglobin 23.6 PG (27.0-31.0) L Mean Corpuscular Hemoglobin Concent 31.6 G/DL (32.0-36.0) L Red Cell Distribution Width 15.0 % (11.6-14.8) H Platelet Count 352 K/UL (150-450) Mean Platelet Volume 6.2 FL (6.5-10.1) L Neutrophils (%) (Auto) 67.9 % (45.0-75.0) Lymphocytes (%) (Auto) 14.7 % (20.0-45.0) L Monocytes (%) (Auto) 11.5 % (1.0-10.0) H Eosinophils (%) (Auto) 5.6 % (0.0-3.0) H Basophils (%) (Auto) 0.4 % (0.0-2.0) Sodium Level 139 MMOL/L (136-145) Potassium Level 4.2 MMOL/L (3.5-5.1) Chloride Level 96 MMOL/L (98-107) L Carbon Dioxide Level 30 MMOL/L (21-32) Anion Gap 13 mmol/L (5-15) Blood Urea Nitrogen 61 mg/dL (7-18) H Creatinine 7.3 MG/DL (0.55-1.30) #H Estimat Glomerular Filtration Rate 6.8 mL/min (>60) Glucose Level 109 MG/DL (74-106) H Calcium Level 9.2 MG/DL (8.5-10.1) Current Medications Medications (Trade) Dose Ordered Sig/Josi Route PRN Reason Start Time Stop Time Status Last Admin Dose Admin Acetaminophen (Tylenol) 650 mg Q4H PRN GT fever 02/25/20 06:30 03/26/20 06:29 03/01/20 12:30 Albuterol/ Ipratropium (Combivent Respimat) 1 puffs Q4H PRN INH Shortness of Breath 02/25/20 06:30 03/26/20 06:29 Atorvastatin Calcium (Lipitor) 10 mg BEDTIME NG 02/25/20 21:00 05/25/20 20:59 03/05/20 20:25 Chlorhexidine Gluconate (Jenny-Hex 2%) 1 applic DAILY@1999 TOPIC 03/01/20 20:00 05/30/20 19:59 03/05/20 20:24 Epoetin Jose De Jesus (Epoetin Jose De Jesus(ESRD on dialysis)) 10,000 unit SUN-SUN-SUN SUBQ 03/03/20 21:00 06/01/20 20:59 03/05/20 21:10 Heparin Sodium (Porcine) (Heparin 5000 units/ml) 5,000 units EVERY 12 HOURS SUBQ 02/25/20 09:00 04/10/20 08:59 03/05/20 20:26 Hydralazine HCl (Apresoline) 10 mg Q4H PRN IV Blood pressure over 160 systol 02/25/20 06:30 05/25/20 06:29 02/29/20 17:03 Insulin Aspart (NovoLOG) Q6HR SUBQ 03/03/20 12:00 05/20/20 12:29 03/06/20 12:47 Labetalol HCl (Normodyne) 20 mg Q1H PRN IV sbp more than 180mmHg 02/25/20 06:30 03/26/20 06:29 Lorazepam (Ativan 2mg/ml 1ml) 2 mg EVERY 2 HOURS PRN IV For Anxiety 03/03/20 21:30 03/10/20 21:29 03/06/20 03:05 Ondansetron HCl (Zofran) 4 mg Q6H PRN IVP Nausea & Vomiting 02/25/20 06:30 03/26/20 06:29 Pantoprazole (Protonix) 40 mg Q12HR IVP 02/25/20 09:00 03/26/20 08:59 03/06/20 09:09 Pyridoxine HCl (Vitamin B6) 50 mg DAILY NG 02/25/20 09:00 03/26/20 08:59 03/06/20 09:09 Sevelamer Carbonate (Renvela) 800 mg Q6HR NG 02/25/20 12:00 05/25/20 11:59 4/11/20 17:30 Thiamine HCl 100 mg/Dextrose 56 ml @ 112 mls/hr Q24H IVPB 02/25/20 12:00 03/26/20 11:59 03/06/20 12:46 Vancomycin HCl (Vanco rx to dose) 1 ea DAILY PRN MISC . 02/25/20 06:30 03/26/20 06:29 Clarice Nicolas MD Mar 06, 2020 21:08
[2020-03-06] MEDS ORDERED: D5W 275ml ONE (21:15)
[2020-03-06] MEDS: Dyna-Hex 2% Top Sol 2oz TOPIC SCH (21:19)
--- NOTE | 2020-03-06 22:00 | NUR ---
Nurse Note: Pt completed HD. Bed linen changed, pt cleaned with soap and water, pt also cleaned with bath wipes. Pt wound cleaned, wound cream barrier applied and foam dressing applied. Pt on restraints, skin intact. Ativan given d/t pt being restless. All safety measures met; will continue to monitor.
[2020-03-07] VITALS (26 sets, daily range): BP systolic 114–180; BP diastolic 44–111
--- NOTE | 2020-03-07 | NUR ---
Nurse Note: Pt tried getting out of bed and sat up, Ativan given; pt tolerated well. Pt refused oral suctioning; gurgling heard and RR27, pt refused to open mouth; will monitor breathing effort and oxygenation. Pt on continuous feeding via NGT. All safety measures met; will continue to monitor.
[2020-03-07] MEDS: Renvela 800mg Pkt NG SCH ×4 (00:08→17:29)
[2020-03-07] MEDS: LORazepam Inj 2mg/ml 1ml IV PRN ×2 (00:20→05:26)
--- NOTE | 2020-03-07 03:00 | NUR ---
Nurse Note: Pt remains at condition from shift change. Lab with pt to collect specimen. Will continue to monitor.
[2020-03-07 05:03] LABS: BASOPHILS % (AUTO) 0.5 % (0.0-2.0); EOSINOPHILS % (AUTO) 4.1 % (0.0-3.0); HEMOGLOBIN 10.1 G/DL (12.0-16.0); LYMPHOCYTES % (AUTO) 14.5 % (20.0-45.0); MEAN CORPUSCULAR VOLUME 75 FL (80-99); PLATELET COUNT 375 K/UL (150-450); RED BLOOD COUNT 4.27 M/UL (4.20-5.40); RED CELL DISTRIBUTION WIDTH 15.1 % (11.6-14.8); WHITE BLOOD COUNT 10.7 K/UL (4.8-10.8)
[2020-03-07 05:14] LABS: ANION GAP 10 mmol/L (5-15); BLOOD UREA NITROGEN 38 mg/dL (7-18); CALCIUM 9.7 MG/DL (8.5-10.1); CARBON DIOXIDE 33 MMOL/L (21-32); CHLORIDE 99 MMOL/L (98-107); CREATININE 5.5 MG/DL (0.55-1.30); POTASSIUM 3.7 MMOL/L (3.5-5.1); SODIUM 142 MMOL/L (136-145)
[2020-03-07] MEDS: NovoLOG Insulin Flexpen SUBQ SCH ×4 (05:26→17:33)
--- NOTE | 2020-03-07 05:30 | NUR ---
NURSE NOTES: Received report from Ashley SLOAN at this time. patient currently on room air. Sinus rhythm on the monitor. NGT feeding, no residual. Patient in no distress. Will continue to monitor
--- NOTE | 2020-03-07 07:50 | NUR ---
HAND-OFF: Report given to Jimmy SLOAN Using SBAR.
--- NOTE | 2020-03-07 08:15 | NUR ---
NURSE NOTES: Chastity vasquez at the bedside and updated on patient condition, no verbal orders given at this time.
--- NOTE | 2020-03-07 09:02 | Pulmonolgy Critical Care Note ---
Critical Care - Asmt/Plan Assessment/Plan: ASSESSMENT COVID 19 pneumonia Acute respiratory failure requiring intubation, secondary to COVID 19 infection , status post self extubation Persistent bacteremia with recurrent fevers -presumed SBE ESRD, on HD Diabetes mellitus Hypertension Pacemaker Jehovah witness Obesity hypoventilation syndrome PLAN of CARE in ICU self extubated ABG stable, pulse ox OK O2 HHN PRN fup CXR noted, stable IV Vanco for 6-week for SBE as per ID recs Echo from [facility] w/out evidence of vegetation ( per cardio patient at high risk to have CLAY ) UCX with Candice - likely colonizer -per ID s/p Plaquenil and azithromycin for 5 days influenza screen NGT dialysis as per nephro with close monitoring of volumes and renal parameters DVT, GI prophylaxis keep in ICU for now case discussed and evaluated by supervising physician Critical Care - Objective Last 24 Hour Vital Signs Date Time Temp Pulse Resp B/P (MAP) Pulse Ox O2 Delivery O2 Flow Rate FiO2 03/07/20 07:00 88 27 114/47 (69) 96 03/07/20 06:30 82 27 160/80 (106) 95 03/07/20 06:00 84 28 180/49 (92) 94 03/07/20 05:30 79 24 130/70 (90) 95 03/07/20 05:00 80 19 167/62 (97) 98 03/07/20 04:00 78 03/07/20 04:00 97.6 77 24 132/80 (97) 96 03/07/20 04:00 Nasal Cannula 1.0 03/07/20 03:00 79 22 156/44 (81) 97 03/07/20 02:00 83 20 152/68 (96) 95 03/07/20 01:00 79 22 122/111 (115) 96 03/07/20 00:00 97.5 85 32 146/62 (90) 95 03/07/20 00:00 82 03/07/20 00:00 Nasal Cannula 1.0 03/06/20 23:00 83 31 166/76 (106) 95 03/06/20 22:00 80 28 126/61 (82) 95 03/06/20 21:00 79 19 124/76 (92) 91 03/06/20 20:22 134 29 100 Mechanical Ventilator 30 03/06/20 20:22 100 Nasal Cannula 2.0 28 4/11/20 20:00 97.7 83 16 136/52 (80) 98 03/06/20 20:00 Nasal Cannula 1.0 03/06/20 19:00 78 21 159/78 (105) 98 03/06/20 18:00 71 25 176/55 (95) 98 03/06/20 17:00 72 20 124/92 (103) 99 03/06/20 16:00 Nasal Cannula 1.0 03/06/20 16:00 75 03/06/20 16:00 71 22 154/92 (112) 100 03/06/20 15:00 75 29 172/61 (98) 100 03/06/20 14:00 71 28 157/61 (93) 100 03/06/20 13:00 73 29 158/67 (97) 100 03/06/20 12:07 72 03/06/20 12:00 Nasal Cannula 1.0 03/06/20 12:00 97.1 73 28 159/64 (95) 100 03/06/20 11:00 76 29 168/83 (111) 100 03/06/20 10:00 77 30 166/58 (94) 100 Status: other - morbidly obese AA female in NAD Condition: critical HEENT: atraumatic, normocephalic, other - O2 via NC Lungs: other - few bibasialr crackles Heart: HR/BP stable Abdomen: soft - obese Accucheck: 92 Critical Care - Subjective ROS Limited/Unobtainable: Yes Interval Events: on O2 via NC sat stable, Condition: critical FI02: 30 Vent Tidal Volume: 600 Sputum Amount: Small PEEP: 0.0 PIP: 21 Tube Feeding Amount: 35 I&O: Intake and Output 03/06/20 03/07/20 19:00 07:00 Intake Total 460 ml 410 ml Output Total 0 ml 3062 ml Balance 460 ml -2652 ml Intake Free Water 60 ml 60 ml Tube Feeding 350 ml 350 ml Other 50 ml Output Urine Total 0 ml 62 ml Hemodialysis UF 3000 ml # Bowel Movements 4 4 CXR: Stable to minimally worsened bilateral interstitial and airspace infiltrates versus edema ET-Tube: 7.5 ET Position: 25 Chastity Velasco NP Mar 07, 2020 09:02
--- NOTE | 2020-03-07 09:11 | General Progress Note ---
Assessment/Plan Problem List: (1) Obesity (BMI 30-39.9) ICD Codes: E66.9 - Obesity, unspecified SNOMED: 330700193, 831142646 (2) COVID-19 virus infection ICD Codes: U07.1 - COVID-19 SNOMED: 967098423 (3) Acute respiratory failure ICD Codes: J96.00 - Acute respiratory failure, unspecified whether with hypoxia or hypercapnia SNOMED: 13964703 (4) Blindness of both eyes ICD Codes: H54.0 - Blindness SNOMED: 046916549 (5) ESRD (end stage renal disease) on dialysis ICD Codes: N18.6 - End stage renal disease; Z99.2 - Dependence on renal dialysis SNOMED: 904952517 (6) Anemia ICD Codes: D64.9 - Anemia, unspecified SNOMED: 861039004 (7) Diabetes ICD Codes: E11.9 - Type 2 diabetes mellitus without complications SNOMED: 54620062 (8) AMS (altered mental status) ICD Codes: R41.82 - Altered mental status, unspecified SNOMED: 857550660 Status: unchanged Assessment/Plan: vent abx dialysis cbc bmp am ltach eval Subjective Constitutional: Reports: weakness Allergies: Coded Allergies: NO KNOWN ALLERGIES (Unverified Allergy, Unknown, 10/15/15) All Systems: reviewed and negative except above Subjective og tube o2 nc in icu Objective Last 24 Hour Vital Signs Date Time Temp Pulse Resp B/P (MAP) Pulse Ox O2 Delivery O2 Flow Rate FiO2 03/07/20 07:00 88 27 114/47 (69) 96 03/07/20 06:30 82 27 160/80 (106) 95 03/07/20 06:00 84 28 180/49 (92) 94 03/07/20 05:30 79 24 130/70 (90) 95 03/07/20 05:00 80 19 167/62 (97) 98 03/07/20 04:00 78 03/07/20 04:00 97.6 77 24 132/80 (97) 96 03/07/20 04:00 Nasal Cannula 1.0 03/07/20 03:00 79 22 156/44 (81) 97 03/07/20 02:00 83 20 152/68 (96) 95 03/07/20 01:00 79 22 122/111 (115) 96 03/07/20 00:00 97.5 85 32 146/62 (90) 95 03/07/20 00:00 82 03/07/20 00:00 Nasal Cannula 1.0 03/06/20 23:00 83 31 166/76 (106) 95 03/06/20 22:00 80 28 126/61 (82) 95 03/06/20 21:00 79 19 124/76 (92) 91 03/06/20 20:22 134 29 100 Mechanical Ventilator 30 03/06/20 20:22 100 Nasal Cannula 2.0 28 03/06/20 20:00 97.7 83 16 136/52 (80) 98 03/06/20 20:00 Nasal Cannula 1.0 03/06/20 19:00 78 21 159/78 (105) 98 03/06/20 18:00 71 25 176/55 (95) 98 03/06/20 17:00 72 20 124/92 (103) 99 03/06/20 16:00 Nasal Cannula 1.0 03/06/20 16:00 75 03/06/20 16:00 71 22 154/92 (112) 100 03/06/20 15:00 75 29 172/61 (98) 100 03/06/20 14:00 71 28 157/61 (93) 100 03/06/20 13:00 73 29 158/67 (97) 100 03/06/20 12:07 72 03/06/20 12:00 Nasal Cannula 1.0 03/06/20 12:00 97.1 73 28 159/64 (95) 100 03/06/20 11:00 76 29 168/83 (111) 100 03/06/20 10:00 77 30 166/58 (94) 100 Intake and Output 03/06/20 03/07/20 19:00 07:00 Intake Total 460 ml 410 ml Output Total 0 ml 3062 ml Balance 460 ml -2652 ml Intake Free Water 60 ml 60 ml Tube Feeding 350 ml 350 ml Other 50 ml Output Urine Total 0 ml 62 ml Hemodialysis UF 3000 ml # Bowel Movements 4 4 Laboratory Tests 03/07/20 03:20: White Blood Count 10.7, Red Blood Count 4.27, Hemoglobin 10.1L, Hematocrit 32.0L , Mean Corpuscular Volume 75L, Mean Corpuscular Hemoglobin 23.6L, Mean Corpuscular Hemoglobin Concent 31.5L, Red Cell Distribution Width 15.1H, Platelet Count 375, Mean Platelet Volume 5.7L, Neutrophils (%) (Auto) 69.0, Lymphocytes (%) (Auto) 14.5L, Monocytes (%) (Auto) 12.0H, Eosinophils (%) (Auto ) 4.1H, Basophils (%) (Auto) 0.5, Sodium Level 142, Potassium Level 3.7, Chloride Level 99, Carbon Dioxide Level 33H, Anion Gap 10, Blood Urea Nitrogen 38H, Creatinine 5.5H, Estimat Glomerular Filtration Rate 9.6, Glucose Level 86, Calcium Level 9.7, Random Vancomycin Level 23.4 03/07/20 07:42: Arterial Blood pH 7.486H, Arterial Blood Partial Pressure CO2 40.7, Arterial Blood Partial Pressure O2 61.1L, Arterial Blood HCO3 30.0H, Arterial Blood Oxygen Saturation 91.7L, Arterial Blood Base Excess 6.1H, Lester Test Positive Height (Feet): 5 Height (Inches): 7.00 Weight (Pounds): 242 General Appearance: lethargic EENT: normal ENT inspection Neck: normal alignment Cardiovascular: normal rate, regular rhythm Extremities: normal inspection Roderick Henning DO Mar 07, 2020 09:11
[2020-03-07] MEDS ORDERED: Albuterol/Ipratropium 3ml neb HHN PRN (09:15)
--- NOTE | 2020-03-07 10:15 | NUR ---
NURSE NOTES: Dr. Hunter rounded on patient and updated on chemistry results. patient total output from dialysis was 3L on 03/06/20. patient right upper arm shunt remains with bruit and thrill present. no verbal orders given at this time.
[2020-03-07] MEDS: Pantoprazole Inj IVP SCH ×2 (10:35→20:42)
[2020-03-07] MEDS: Pyridoxine 50mg tab NG SCH (10:36)
--- NOTE | 2020-03-07 10:37 | Diagnostic Imaging Report ---
EXAM: XR Chest, 1 View CLINICAL HISTORY: SORE TECHNIQUE: Frontal view of the chest. COMPARISON: FINDINGS: Enlarged cardiac silhouette with redemonstrated dual-lead pacer device in a left subclavian approach. Enteric tube again noted, coursing well below the diaphragm and out of the [id number]. There is persistent vascular congestion and suspected interstitial edema. IMPRESSION: Persistent vascular congestion and suspected interstitial edema. Cardiomegaly with pacer.
[2020-03-07] MEDS: Heparin 5000 units/ml inj SUBQ SCH ×2 (10:38→20:43)
--- NOTE | 2020-03-07 12:06 | Nephrology Progress Note ---
Assessment/Plan Problem List: (1) Acute respiratory failure (2) ESRD (end stage renal disease) on dialysis (3) UTI (urinary tract infection) (4) Patient is [employer] (5) Pacemaker (6) Diabetes (7) Obesity (BMI 30-39.9) Assessment ARDS (adult respiratory distress syndrome) Fever Sepsis UTI (urinary tract infection) Respiratory failure, intubated on ventilator Thrombocytopenia Lymphopenia End stage renal disease on dialysis. Has a right upper arm dialysis fistula as Acces . Getting dialysis Sunday. morbid obesity Anemia / Jehova's witness CAD previous stent HTN- hypertensive urgency upon arrival to [facility]. s/p AVG DM 2 bilateral eye blindness h/o CHF Pacemaker Plan Patient extubated last night March 04 Patient positive for Covid 19 Per ID and pulmonary, Last dialyzed March 06 next March 09 EPO, thiamin and b6 Phos binders NGT feeding per consultants Remains full code at this time Subjective ROS Limited/Unobtainable: No Constitutional: Reports: malaise, weakness Objective Objective Last 24 Hour Vital Signs Date Time Temp Pulse Resp B/P (MAP) Pulse Ox O2 Delivery O2 Flow Rate FiO2 03/07/20 11:43 81 03/07/20 11:00 85 24 170/77 (108) 93 03/07/20 10:00 82 26 171/51 (91) 96 03/07/20 09:00 82 26 171/63 (99) 96 03/07/20 08:00 98.1 83 17 148/65 (92) 97 03/07/20 08:00 84 03/07/20 08:00 Nasal Cannula 1.0 03/07/20 07:00 88 27 114/47 (69) 96 03/07/20 06:30 82 27 160/80 (106) 95 03/07/20 06:00 84 28 180/49 (92) 94 03/07/20 05:30 79 24 130/70 (90) 95 03/07/20 05:00 80 19 167/62 (97) 98 03/07/20 04:00 78 03/07/20 04:00 97.6 77 24 132/80 (97) 96 03/07/20 04:00 Nasal Cannula 1.0 03/07/20 03:00 79 22 156/44 (81) 97 03/07/20 02:00 83 20 152/68 (96) 95 03/07/20 01:00 79 22 122/111 (115) 96 03/07/20 00:00 97.5 85 32 146/62 (90) 95 03/07/20 00:00 82 03/07/20 00:00 Nasal Cannula 1.0 03/06/20 23:00 83 31 166/76 (106) 95 03/06/20 22:00 80 28 126/61 (82) 95 03/06/20 21:00 79 19 124/76 (92) 91 03/06/20 20:22 134 29 100 Mechanical Ventilator 30 03/06/20 20:22 100 Nasal Cannula 2.0 28 03/06/20 20:00 97.7 83 16 136/52 (80) 98 03/06/20 20:00 Nasal Cannula 1.0 03/06/20 19:00 78 21 159/78 (105) 98 03/06/20 18:00 71 25 176/55 (95) 98 03/06/20 17:00 72 20 124/92 (103) 99 03/06/20 16:00 Nasal Cannula 1.0 03/06/20 16:00 75 03/06/20 16:00 71 22 154/92 (112) 100 03/06/20 15:00 75 29 172/61 (98) 100 03/06/20 14:00 71 28 157/61 (93) 100 03/06/20 13:00 73 29 158/67 (97) 100 03/06/20 12:07 72 Intake and Output 03/06/20 03/07/20 19:00 07:00 Intake Total 460 ml 410 ml Output Total 0 ml 3062 ml Balance 460 ml -2652 ml Intake Free Water 60 ml 60 ml Tube Feeding 350 ml 350 ml Other 50 ml Output Urine Total 0 ml 62 ml Hemodialysis UF 3000 ml # Bowel Movements 4 4 Laboratory Tests 03/07/20 03:20: White Blood Count 10.7, Red Blood Count 4.27, Hemoglobin 10.1L, Hematocrit 32.0L , Mean Corpuscular Volume 75L, Mean Corpuscular Hemoglobin 23.6L, Mean Corpuscular Hemoglobin Concent 31.5L, Red Cell Distribution Width 15.1H, Platelet Count 375, Mean Platelet Volume 5.7L, Neutrophils (%) (Auto) 69.0, Lymphocytes (%) (Auto) 14.5L, Monocytes (%) (Auto) 12.0H, Eosinophils (%) (Auto ) 4.1H, Basophils (%) (Auto) 0.5, Sodium Level 142, Potassium Level 3.7, Chloride Level 99, Carbon Dioxide Level 33H, Anion Gap 10, Blood Urea Nitrogen 38H, Creatinine 5.5H, Estimat Glomerular Filtration Rate 9.6, Glucose Level 86, Calcium Level 9.7, Random Vancomycin Level 23.4 03/07/20 07:42: Arterial Blood pH 7.486H, Arterial Blood Partial Pressure CO2 40.7, Arterial Blood Partial Pressure O2 61.1L, Arterial Blood HCO3 30.0H, Arterial Blood Oxygen Saturation 91.7L, Arterial Blood Base Excess 6.1H, Lester Test Positive Height (Feet): 5 Height (Inches): 7.00 Weight (Pounds): 242 General Appearance: no apparent distress EENT: other - Remains extubated Cardiovascular: normal rate Respiratory/Chest: decreased breath sounds Abdomen: distended Bryan Hunter MD Mar 07, 2020 12:06
--- NOTE | 2020-03-07 12:15 | NUR ---
NURSE NOTES: Entered patient room to reposition and administer of NovoLog and Renvela. patient arms released and remains with active range of motion, skin remains intact around the wrist with pulses present and hands warm and pink. Patient continues to reach towards Et-tube. she is able to commuincate with simple words and assist minimally when reposition.
[2020-03-07] MEDS: Thiamine HCl 100 MG in D5W 55 ML IVPB SCH (12:46)
--- NOTE | 2020-03-07 13:37 | NUR ---
RD ASSESSMENT & RECOMMENDATIONS SEE CARE ACTIVITY FOR COMPLETE ASSESSMENT DAILY ESTIMATED NEEDS: Needs based on obesity, critical care, HD 11-14kg actual body wt (114kg) kcals/kg 8718-1170 total kcals 1.5-2.0kg/IBW (66kg) g protein/kg 99-132 g total protein per MD, pt on HD NUTRITION DIAGNOSIS: * Swallowing difficulty R/T respiratory status as evidenced by pt orally intubated, on NGT feeding. * Altered nutrition related lab values R/T ESRD as evidenced by elev creat (9.4), elev BNP (>39437), elev phos (6.0-> wnl). CURRENT TF:Nepro @ 35ml/hr x 24 hrs + Prosource 1pkt TID ENTERAL NUTRITION RECOMMENDATIONS: Nepro @ 35ml/hr x 24 hrs + Prosource 1pkt TID to provide 840ml, 1512kcal, 68 +33g prot, 611ml free water * Maintain current TF @ goal. * Add Prosource 1pkt TID to meet protein needs * HOB over 30 degrees/ water flush per MD. ADDITIONAL RECOMMENDATIONS: 1) Calibrated bedscale wt for accurate CBW- daily wts for ESRD dx 2) Add Nephrovite x 1 3) Monitor BGs closely, for hypoglycemia-> rec D5 when TF is held h/o frequent hypoglycemia during prev admissions 4) Consider phos binders for consistently elevated phos level -> now added (02/24) 5) EXCHANGE MECHANIC eval for texture s/p extubation
--- NOTE | 2020-03-07 13:54 | NUR ---
NURSE NOTES: Hemodialysis called to inform of order placed by Dr. Hunter for dialysis on 03/09/20. will relay message to dialysis nurse
[2020-03-07] MEDS ORDERED: NS 275ml ONE ×2 (14:07→14:35)
[2020-03-07] MEDS ORDERED: Sterile Water Irrig 1000ml IRRIG ONE ×2 (14:07→14:35)
[2020-03-07] MEDS ORDERED: Tubing IV Secondary IV ONE (14:35)
[2020-03-07] MEDS ORDERED: D5W 550ml IV ONE (14:35)
--- NOTE | 2020-03-07 18:56 | Cardiology Progress Note ---
Assessment/Plan Assessment/Plan respiratory failure, due to pneumonia, doubt CHF, Subjective Subjective the patient is lethargic Objective Last 24 Hour Vital Signs Date Time Temp Pulse Resp B/P (MAP) Pulse Ox O2 Delivery O2 Flow Rate FiO2 03/07/20 18:00 77 24 149/69 (95) 100 03/07/20 17:00 78 27 155/66 (95) 100 03/07/20 16:00 Nasal Cannula 1.0 03/07/20 16:00 99.5 77 25 128/58 (81) 100 03/07/20 16:00 79 03/07/20 15:00 78 26 142/53 (82) 100 03/07/20 14:00 77 29 159/51 (87) 100 03/07/20 13:00 78 31 150/62 (91) 99 03/07/20 12:00 98.8 83 28 173/57 (95) 96 03/07/20 12:00 Nasal Cannula 1.0 03/07/20 11:43 81 03/07/20 11:00 85 24 170/77 (108) 93 03/07/20 10:00 82 26 171/51 (91) 96 03/07/20 09:00 82 26 171/63 (99) 96 03/07/20 08:00 98.1 83 17 148/65 (92) 97 03/07/20 08:00 84 03/07/20 08:00 Nasal Cannula 1.0 03/07/20 07:00 88 27 114/47 (69) 96 03/07/20 06:30 82 27 160/80 (106) 95 03/07/20 06:00 84 28 180/49 (92) 94 03/07/20 05:30 79 24 130/70 (90) 95 03/07/20 05:00 80 19 167/62 (97) 98 03/07/20 04:00 78 03/07/20 04:00 97.6 77 24 132/80 (97) 96 03/07/20 04:00 Nasal Cannula 1.0 03/07/20 03:00 79 22 156/44 (81) 97 03/07/20 02:00 83 20 152/68 (96) 95 03/07/20 01:00 79 22 122/111 (115) 96 03/07/20 00:00 97.5 85 32 146/62 (90) 95 03/07/20 00:00 82 03/07/20 00:00 Nasal Cannula 1.0 03/06/20 23:00 83 31 166/76 (106) 95 03/06/20 22:00 80 28 126/61 (82) 95 03/06/20 21:00 79 19 124/76 (92) 91 03/06/20 20:22 134 29 100 Mechanical Ventilator 30 03/06/20 20:22 100 Nasal Cannula 2.0 28 03/06/20 20:00 97.7 83 16 136/52 (80) 98 03/06/20 20:00 Nasal Cannula 1.0 03/06/20 19:00 78 21 159/78 (105) 98 Intake and Output 03/06/20 03/07/20 19:00 07:00 Intake Total 460 ml 410 ml Output Total 0 ml 3062 ml Balance 460 ml -2652 ml Intake Free Water 60 ml 60 ml Tube Feeding 350 ml 350 ml Other 50 ml Output Urine Total 0 ml 62 ml Hemodialysis UF 3000 ml # Bowel Movements 4 4 Laboratory Tests Test 03/07/20 03:20 03/07/20 07:42 White Blood Count 10.7 K/UL (4.8-10.8) Red Blood Count 4.27 M/UL (4.20-5.40) Hemoglobin 10.1 G/DL (12.0-16.0) L Hematocrit 32.0 % (37.0-47.0) L Mean Corpuscular Volume 75 FL (80-99) L Mean Corpuscular Hemoglobin 23.6 PG (27.0-31.0) L Mean Corpuscular Hemoglobin Concent 31.5 G/DL (32.0-36.0) L Red Cell Distribution Width 15.1 % (11.6-14.8) H Platelet Count 375 K/UL (150-450) Mean Platelet Volume 5.7 FL (6.5-10.1) L Neutrophils (%) (Auto) 69.0 % (45.0-75.0) Lymphocytes (%) (Auto) 14.5 % (20.0-45.0) L Monocytes (%) (Auto) 12.0 % (1.0-10.0) H Eosinophils (%) (Auto) 4.1 % (0.0-3.0) H Basophils (%) (Auto) 0.5 % (0.0-2.0) Sodium Level 142 MMOL/L (136-145) Potassium Level 3.7 MMOL/L (3.5-5.1) Chloride Level 99 MMOL/L (98-107) Carbon Dioxide Level 33 MMOL/L (21-32) H Anion Gap 10 mmol/L (5-15) Blood Urea Nitrogen 38 mg/dL (7-18) H Creatinine 5.5 MG/DL (0.55-1.30) H Estimat Glomerular Filtration Rate 9.6 mL/min (>60) Glucose Level 86 MG/DL (74-106) Calcium Level 9.7 MG/DL (8.5-10.1) Random Vancomycin Level 23.4 ug/mL Arterial Blood pH 7.486 (7.350-7.450) Arterial Blood Partial Pressure CO2 40.7 mmHg (35.0-45.0) Arterial Blood Partial Pressure O2 61.1 mmHg (75.0-100.0) L Arterial Blood HCO3 30.0 mmol/L (22.0-26.0) H Arterial Blood Oxygen Saturation 91.7 % (95-100) L Arterial Blood Base Excess 6.1 (-2-2) H Lester Test Positive Evelia Cadet MD Mar 07, 2020 18:56
--- NOTE | 2020-03-07 19:30 | NUR ---
NURSE NOTES: received patient from dylan klein. patient ao0; opens eyes spontaneously; presents with purposeful movements. patient resting in bed with no acute distress. pt attached to monitor; vitals stable to baseline. Patient on room air spo2 99%; respirations even and unlabored. Right nare NG tube flushed 100ml and patent; feeding running at goal of 35ml/hr. aspiration precautions observed; head of bed raised >30 degree per protocol. sotelo intact and patent; draining well to gravity. left upper arm picc noted; free of signs of infection or debris; flushed and patent. shunt noted on right upper arm. restraints in place, no skin break down or pallor noted; pulses palpable distal to site. droplect precautions observed. all safety measures met; bed locked at lowest position; side rails raised x 3; bed alarm on zone 2; call light with in reach.
--- NOTE | 2020-03-07 19:34 | NUR ---
HAND-OFF: Report given to Andreas Bailey RN.
[2020-03-07] MEDS: Dyna-Hex 2% Top Sol 2oz TOPIC SCH (20:42)
--- NOTE | 2020-03-07 22:00 | NUR ---
NURSE NOTES: patient asleep with no acute distress. vitals stable to baseline. patient meets release restraint criteria; released restraints. patient free of incident. will continue to monitor closely.
[2020-03-08] VITALS (27 sets, daily range): BP systolic 99–177; BP diastolic 46–141
--- NOTE | 2020-03-08 | NUR ---
NURSE NOTES: PATIENT NOTED ATTEMPTING TO REMOVE DEVICE. NONVIOLENT RESTRAINT ORDER RECEIVED; NOTED AND CARRIED OUT. PATIENT EXTREMITIES FREE FROM INJURY OR SKIN BREAKDOWN. PATIENT RESTING IN BED WITH NO ACUTE DISTRESS. VITALS STABLE. SAFETY MEASURES MET. WILL CONTINUE TO MONITOR.
[2020-03-08] MEDS: Renvela 800mg Pkt NG SCH ×4 (00:27→17:27)
[2020-03-08] MEDS: LORazepam Inj 2mg/ml 1ml IV PRN ×8 (00:34→17:15)
--- NOTE | 2020-03-08 02:00 | NUR ---
NURSE NOTES: patient increasingly restless. restraints and safety measures in place. patient self dc ngt and picc. inserted new ngt right nare 70 cm; auscultated gastric sounds by 2 rn; aspirated gastric contents; flushed and patent. radiology confirmation ordered. feeding held. left foot 20g iv established; flushed and patent.
--- NOTE | 2020-03-08 04:00 | NUR ---
NURSE NOTES: radiology at bedside for ngt placement confirmation. am labs drawn; set down to lab. patient presented with bm. changed linens and gown; provided am care. repositioned for comfort. all safety measures met. restrains in place.
--- NOTE | 2020-03-08 04:13 | Diagnostic Imaging Report ---
EXAM: XR Abdomen, 2 Views CLINICAL HISTORY: NGT TECHNIQUE: Frontal view of the abdomen/pelvis with upright view of the abdomen. COMPARISON: No relevant prior studies available. FINDINGS: Intraperitoneal space: No free air. Gastrointestinal tract: Unremarkable. No dilation. Bones/joints: Unremarkable. Tubes, lines and devices: There is an NG tube its tip in good position in the mid to distal stomach. IMPRESSION: No acute findings in the abdomen or pelvis. NG tube in good position
[2020-03-08 05:47] LABS: BASOPHILS % (AUTO) 0.4 % (0.0-2.0); EOSINOPHILS % (AUTO) 2.4 % (0.0-3.0); HEMATOCRIT 30.9 % (37.0-47.0); HEMOGLOBIN 9.7 G/DL (12.0-16.0); LYMPHOCYTES % (AUTO) 16.4 % (20.0-45.0); MEAN CORPUSCULAR VOLUME 76 FL (80-99); MONOCYTES % (AUTO) 13.8 % (1.0-10.0); NEUTROPHILS % (AUTO) 67.1 % (45.0-75.0); PLATELET COUNT 376 K/UL (150-450); RED BLOOD COUNT 4.07 M/UL (4.20-5.40); RED CELL DISTRIBUTION WIDTH 15.4 % (11.6-14.8); WHITE BLOOD COUNT 12.3 K/UL (4.8-10.8)
[2020-03-08] MEDS: NovoLOG Insulin Flexpen SUBQ SCH ×4 (06:00→17:26)
--- NOTE | 2020-03-08 06:00 | NUR ---
NURSE NOTES: NGT PLACEMENT CONFIRMED BY IMAGING. NGT FLUSHED AND PATENT. RESUMED FEEDING AT 35ML/HR. NO RESIDUAL NOTED; PATIENT TOLERATED WELL.
[2020-03-08 06:19] LABS: ALANINE AMINOTRANSFERASE 27 U/L (12-78); ALBUMIN 3.2 G/DL (3.4-5.0); ALBUMIN/GLOBULIN RATIO 0.7 (1.0-2.7); ALKALINE PHOSPHATASE 268 U/L (46-116); ANION GAP 9 mmol/L (5-15); ASPARTATE AMINO TRANSFERASE 38 U/L (15-37); BILIRUBIN,TOTAL 0.9 MG/DL (0.2-1.0); BLOOD UREA NITROGEN 49 mg/dL (7-18); CALCIUM 9.1 MG/DL (8.5-10.1); CARBON DIOXIDE 35 MMOL/L (21-32); CHLORIDE 101 MMOL/L (98-107); CREATININE 7.1 MG/DL (0.55-1.30); POTASSIUM 4.4 MMOL/L (3.5-5.1); SODIUM 145 MMOL/L (136-145)
--- NOTE | 2020-03-08 07:05 | NUR ---
HAND-OFF: Report given to REJI SLOAN. PATIENT IN STABLE CONDITION.
--- NOTE | 2020-03-08 07:07 | NUR ---
NURSE NOTES: Received report from NATHALIA Castaneda. Observed patient in bed, restless. Patient is on room air, saturating 97%. environmental monitoring specialist shows A-paced, HR 84bpm. Patient noted to have NGT on the right nares, slight blood noted on the taped site; infusing TF Nepro at 35ml/hr. Right upper arm AV shunt with good bruit and thrill. Tyler catheter noted. Left foot 20g IV intact and patent. Bilateral soft wrist restraints in place. Safety precautions left in place, bed locked, alarmed, and in lowest position, and side rails up x3. Will continue plan of care and will continue to monitor patient.
[2020-03-08] MEDS: Pantoprazole Inj IVP SCH ×2 (08:17→21:16)
[2020-03-08] MEDS: Pyridoxine 50mg tab NG SCH (08:17)
[2020-03-08] MEDS: Heparin 5000 units/ml inj SUBQ SCH ×2 (09:00→21:18)
--- NOTE | 2020-03-08 09:00 | NUR ---
NURSE NOTES: Scheduled medications given and also Ativan IVP given; patient is restless. NGT on right nares intact, with small blood clots noted. Dr Henning present in the unit, informed and made aware that patient pulled out her PICC line last night. IV access present on the left foot, patient is diabetic. OK to place another PICC line. Will enter and will carry out. Patient was repositioned. Placed HOB elevated. TF resumed after care. Restraints remained on. Bed locked, alarmed, and in lowest position, side rails up x3. Will continue to monitor.
--- NOTE | 2020-03-08 09:19 | NUR ---
DISCHARGE PLANNIN. PATIENT NEEDS TO HAVE A NEGATIVE COVID-19 RESULT PRIOR TO BEING CONSIDERED TO TRANSFER TO [facility] T: [phone] F: [phone] FAXED [facility] FOR WHEN PATIENT IS READY 2.[facility] CAN NOT ACCEPT ANY PATIENTS; NO BEDS T: [phone]
--- NOTE | 2020-03-08 09:22 | Infectious Diseases Prog Note ---
Assessment/Plan Assessment/Plan The patient is a 64-year-old female with Confirmed COVID-19. SARS-CoV PCR positive. Pneumonia Mild leukocytosis Fever, recurrent, SP VDRF- sp self extubation 03/05, now on NC - likely 2/2 COVID, less likely active bacterial superinfection since pt just completed empiric course of antibacterial therapy and sputum cx NG -03/07 CXR: Persistent vascular congestion and suspected interstitial edema.Cardiomegaly with pacer. - 03/01 CXR: Worsening bilateral hazy parenchymal infiltrates, versus edema - 02/20 CXR: Mild pulmonary vascular congestion with subtle bilateral haziness, not significantly changed.Possible tiny pleural effusions. Cardiomegaly. - Bcx ngtd - sp cx normal gui Less likely UTI u/a wbc tnct, nit +, leuk +3; ucx cindy(colonizer) Hx of positive blood culture CONS ,persistent 02/04 BCx: CoNS 01/30 Bc: (1/2)CoNS and Citrobacter 01/27 , 02/01 Bc: CoNS - (outside facility, # of the +ve cultures are not clear) A 2D echo from outside facility did not show any evidence of vegetation as per Carido pt is high risk for CLAY: ( last admission ) Diabetes. CHF. ESRD. Hypertension. Obesity. PLAN: continue the patient on vancomycin, day # ? ( will Rx for probable SBE) 02/27 SP plaquenil+azithromycin #5 / SP Ertapenem #8 02/24 DC amikacin #6 Monitor CBC. Monitor BMP. Monitor cultures (blood, Sp ) ok to DC airborne. pt is on nasal canula. continue droplet/contact isolation given persistent tenuous resp status DW RN Subjective Allergies: Coded Allergies: NO KNOWN ALLERGIES (Unverified Allergy, Unknown, 10/15/15) Subjective afebrile >48hrs at 1L NC now mild leukocytosis Objective Vital Signs Last 24 Hour Vital Signs Date Time Temp Pulse Resp B/P (MAP) Pulse Ox O2 Delivery O2 Flow Rate FiO2 03/08/20 07:00 89 18 130/61 (84) 99 03/08/20 06:00 99.3 85 26 140/56 (84) 98 03/08/20 05:58 177/126 03/08/20 05:00 86 23 177/126 (143) 98 03/08/20 04:00 81 03/08/20 04:00 86 23 136/84 (101) 98 03/08/20 04:00 Nasal Cannula 1.0 03/08/20 03:00 87 24 164/73 (103) 98 03/08/20 02:00 79 23 141/62 (88) 100 03/08/20 01:00 79 21 139/75 (96) 99 03/08/20 00:35 175/59 03/08/20 00:00 76 30 140/58 (85) 100 03/08/20 00:00 Nasal Cannula 1.0 03/08/20 00:00 81 03/07/20 23:00 84 26 164/94 (117) 100 03/07/20 22:00 80 27 136/97 (110) 99 03/07/20 21:00 78 23 158/50 (86) 97 03/07/20 20:15 100 Nasal Cannula 2.0 28 03/07/20 20:00 78 23 138/58 (84) 100 03/07/20 20:00 Nasal Cannula 1.0 03/07/20 20:00 85 03/07/20 19:00 78 19 158/51 (86) 100 03/07/20 18:00 77 24 149/69 (95) 100 03/07/20 17:00 78 27 155/66 (95) 100 03/07/20 16:00 Nasal Cannula 1.0 03/07/20 16:00 99.5 77 25 128/58 (81) 100 03/07/20 16:00 79 03/07/20 15:00 78 26 142/53 (82) 100 03/07/20 14:00 77 29 159/51 (87) 100 03/07/20 13:00 78 31 150/62 (91) 99 03/07/20 12:00 98.8 83 28 173/57 (95) 96 03/07/20 12:00 Nasal Cannula 1.0 03/07/20 11:43 81 03/07/20 11:00 85 24 170/77 (108) 93 03/07/20 10:00 82 26 171/51 (91) 96 Height (Feet): 5 Height (Inches): 7.00 Weight (Pounds): 239 Objective HEENT: atraumatic Neck: supple Respiratory/Chest: no respiratory distress Cardiovascular/Chest: regular rhythm Abdomen: soft Laboratory Tests Test 03/08/20 04:00 White Blood Count 12.3 K/UL (4.8-10.8) H Red Blood Count 4.07 M/UL (4.20-5.40) L Hemoglobin 9.7 G/DL (12.0-16.0) L Hematocrit 30.9 % (37.0-47.0) L Mean Corpuscular Volume 76 FL (80-99) L Mean Corpuscular Hemoglobin 23.8 PG (27.0-31.0) L Mean Corpuscular Hemoglobin Concent 31.3 G/DL (32.0-36.0) L Red Cell Distribution Width 15.4 % (11.6-14.8) H Platelet Count 376 K/UL (150-450) Mean Platelet Volume 5.3 FL (6.5-10.1) L Neutrophils (%) (Auto) 67.1 % (45.0-75.0) Lymphocytes (%) (Auto) 16.4 % (20.0-45.0) L Monocytes (%) (Auto) 13.8 % (1.0-10.0) H Eosinophils (%) (Auto) 2.4 % (0.0-3.0) Basophils (%) (Auto) 0.4 % (0.0-2.0) Sodium Level 145 MMOL/L (136-145) Potassium Level 4.4 MMOL/L (3.5-5.1) Chloride Level 101 MMOL/L (98-107) Carbon Dioxide Level 35 MMOL/L (21-32) H Anion Gap 9 mmol/L (5-15) Blood Urea Nitrogen 49 mg/dL (7-18) H Creatinine 7.1 MG/DL (0.55-1.30) H Estimat Glomerular Filtration Rate 7.2 mL/min (>60) Glucose Level 82 MG/DL (74-106) Uric Acid 4.2 MG/DL (2.6-7.2) Calcium Level 9.1 MG/DL (8.5-10.1) Phosphorus Level 4.0 MG/DL (2.5-4.9) Magnesium Level 3.0 MG/DL (1.8-2.4) H Total Bilirubin 0.9 MG/DL (0.2-1.0) Aspartate Amino Transf (AST/SGOT) 38 U/L (15-37) H Alanine Aminotransferase (ALT/SGPT) 27 U/L (12-78) Alkaline Phosphatase 268 U/L (46-116) H Total Protein 7.6 G/DL (6.4-8.2) Albumin 3.2 G/DL (3.4-5.0) L Globulin 4.4 g/dL Albumin/Globulin Ratio 0.7 (1.0-2.7) L Current Medications Medications (Trade) Dose Ordered Sig/Josi Route PRN Reason Start Time Stop Time Status Last Admin Dose Admin Acetaminophen (Tylenol) 650 mg Q4H PRN GT fever 02/25/20 06:30 03/26/20 06:29 03/01/20 12:30 Albuterol/ Ipratropium (Combivent Respimat) 1 puffs Q4H PRN INH Shortness of Breath 02/25/20 06:30 03/26/20 06:29 Atorvastatin Calcium (Lipitor) 10 mg BEDTIME NG 02/25/20 21:00 05/25/20 20:59 03/07/20 20:42 Chlorhexidine Gluconate (Jenny-Hex 2%) 1 applic DAILY@1999 TOPIC 03/01/20 20:00 05/30/20 19:59 03/07/20 20:42 Epoetin Jose De Jesus (Epoetin Jose De Jesus(ESRD on dialysis)) 10,000 unit SUN-SUN-SUN SUBQ 03/03/20 21:00 06/01/20 20:59 03/05/20 21:10 Heparin Sodium (Porcine) (Heparin 5000 units/ml) 5,000 units EVERY 12 HOURS SUBQ 02/25/20 09:00 04/10/20 08:59 03/07/20 20:43 Hydralazine HCl (Apresoline) 10 mg Q4H PRN IV Blood pressure over 160 systol 02/25/20 06:30 05/25/20 06:29 03/08/20 05:58 Insulin Aspart (NovoLOG) Q6HR SUBQ 03/03/20 12:00 05/20/20 12:29 03/07/20 17:33 Labetalol HCl (Normodyne) 20 mg Q1H PRN IV sbp more than 180mmHg 02/25/20 06:30 03/26/20 06:29 Lorazepam (Ativan 2mg/ml 1ml) 2 mg EVERY 2 HOURS PRN IV For Anxiety 03/03/20 21:30 03/10/20 21:29 03/08/20 08:17 Ondansetron HCl (Zofran) 4 mg Q6H PRN IVP Nausea & Vomiting 02/25/20 06:30 03/26/20 06:29 Pantoprazole (Protonix) 40 mg Q12HR IVP 02/25/20 09:00 03/26/20 08:59 03/08/20 08:17 Pyridoxine HCl (Vitamin B6) 50 mg DAILY NG 02/25/20 09:00 03/26/20 08:59 03/08/20 08:17 Sevelamer Carbonate (Renvela) 800 mg Q6HR NG 02/25/20 12:00 05/25/20 11:59 03/08/20 03:56 Thiamine HCl 100 mg/Dextrose 56 ml @ 112 mls/hr Q24H IVPB 02/25/20 12:00 03/26/20 11:59 03/07/20 12:46 Vancomycin HCl (Vanco rx to dose) 1 ea DAILY PRN MISC . 02/25/20 06:30 03/26/20 06:29 Susi Vanegas M.D. Mar 08, 2020 09:22
--- NOTE | 2020-03-08 09:40 | General Progress Note ---
Assessment/Plan Problem List: (1) Obesity (BMI 30-39.9) ICD Codes: E66.9 - Obesity, unspecified SNOMED: 352363778, 127210903 (2) COVID-19 virus infection ICD Codes: U07.1 - COVID-19 SNOMED: 551110990 (3) Acute respiratory failure ICD Codes: J96.00 - Acute respiratory failure, unspecified whether with hypoxia or hypercapnia SNOMED: 98568811 (4) Blindness of both eyes ICD Codes: H54.0 - Blindness SNOMED: 408409804 (5) ESRD (end stage renal disease) on dialysis ICD Codes: N18.6 - End stage renal disease; Z99.2 - Dependence on renal dialysis SNOMED: 206253798 (6) Anemia ICD Codes: D64.9 - Anemia, unspecified SNOMED: 623677381 (7) Diabetes ICD Codes: E11.9 - Type 2 diabetes mellitus without complications SNOMED: 34167277 (8) AMS (altered mental status) ICD Codes: R41.82 - Altered mental status, unspecified SNOMED: 747014347 Status: unchanged Assessment/Plan: vent abx dialysis cbc bmp am ltach eval Subjective Constitutional: Reports: weakness Allergies: Coded Allergies: NO KNOWN ALLERGIES (Unverified Allergy, Unknown, 10/15/15) All Systems: reviewed and negative except above Subjective ng lethargic in icu Objective Last 24 Hour Vital Signs Date Time Temp Pulse Resp B/P (MAP) Pulse Ox O2 Delivery O2 Flow Rate FiO2 03/08/20 09:00 86 23 155/79 (104) 98 03/08/20 08:51 98.7 87 18 156/81 (106) 97 03/08/20 08:00 86 25 166/141 (149) 98 03/08/20 08:00 Room Air 03/08/20 07:00 89 18 130/61 (84) 99 03/08/20 06:00 99.3 85 26 140/56 (84) 98 03/08/20 05:58 177/126 03/08/20 05:00 86 23 177/126 (143) 98 03/08/20 04:00 81 03/08/20 04:00 86 23 136/84 (101) 98 03/08/20 04:00 Nasal Cannula 1.0 03/08/20 03:00 87 24 164/73 (103) 98 03/08/20 02:00 79 23 141/62 (88) 100 03/08/20 01:00 79 21 139/75 (96) 99 03/08/20 00:35 175/59 03/08/20 00:00 76 30 140/58 (85) 100 03/08/20 00:00 Nasal Cannula 1.0 03/08/20 00:00 81 03/07/20 23:00 84 26 164/94 (117) 100 03/07/20 22:00 80 27 136/97 (110) 99 03/07/20 21:00 78 23 158/50 (86) 97 03/07/20 20:15 100 Nasal Cannula 2.0 28 03/07/20 20:00 78 23 138/58 (84) 100 03/07/20 20:00 Nasal Cannula 1.0 03/07/20 20:00 85 03/07/20 19:00 78 19 158/51 (86) 100 03/07/20 18:00 77 24 149/69 (95) 100 03/07/20 17:00 78 27 155/66 (95) 100 03/07/20 16:00 Nasal Cannula 1.0 03/07/20 16:00 99.5 77 25 128/58 (81) 100 03/07/20 16:00 79 03/07/20 15:00 78 26 142/53 (82) 100 03/07/20 14:00 77 29 159/51 (87) 100 03/07/20 13:00 78 31 150/62 (91) 99 03/07/20 12:00 98.8 83 28 173/57 (95) 96 03/07/20 12:00 Nasal Cannula 1.0 03/07/20 11:43 81 03/07/20 11:00 85 24 170/77 (108) 93 03/07/20 10:00 82 26 171/51 (91) 96 Intake and Output 03/07/20 03/08/20 19:00 07:00 Intake Total 701 ml 480 ml Output Total 100 ml 65 ml Balance 601 ml 415 ml Intake Free Water 160 ml 200 ml IV Total 56 ml Tube Feeding 455 ml 280 ml Other 30 ml Output Urine Total 100 ml 65 ml # Bowel Movements 4 5 Laboratory Tests 03/08/20 04:00: White Blood Count 12.3H, Red Blood Count 4.07L, Hemoglobin 9.7L, Hematocrit 30.9L, Mean Corpuscular Volume 76L, Mean Corpuscular Hemoglobin 23.8L, Mean Corpuscular Hemoglobin Concent 31.3L, Red Cell Distribution Width 15.4H, Platelet Count 376, Mean Platelet Volume 5.3L, Neutrophils (%) (Auto) 67.1, Lymphocytes (%) (Auto) 16.4L, Monocytes (%) (Auto) 13.8H, Eosinophils (%) (Auto ) 2.4, Basophils (%) (Auto) 0.4, Sodium Level 145, Potassium Level 4.4, Chloride Level 101, Carbon Dioxide Level 35H, Anion Gap 9, Blood Urea Nitrogen 49H, Creatinine 7.1H, Estimat Glomerular Filtration Rate 7.2, Glucose Level 82, Uric Acid 4.2, Calcium Level 9.1, Phosphorus Level 4.0, Magnesium Level 3.0H, Total Bilirubin 0.9, Aspartate Amino Transf (AST/SGOT) 38H, Alanine Aminotransferase (ALT/SGPT) 27, Alkaline Phosphatase 268H, Total Protein 7.6, Albumin 3.2L, Globulin 4.4, Albumin/Globulin Ratio 0.7L Height (Feet): 5 Height (Inches): 7.00 Weight (Pounds): 239 General Appearance: lethargic EENT: normal ENT inspection Neck: normal alignment Cardiovascular: normal rate, regular rhythm Extremities: normal inspection Skin: normal pigmentation Roderick Henning DO Mar 08, 2020 09:40
[2020-03-08] MEDS ORDERED: Lidocaine 1% Plain 30 ml INJ SCH (10:00)
[2020-03-08] MEDS ORDERED: Heparin1,000 units/500ml Premix(Conc:2 units/ml) IV SCH (10:00)
[2020-03-08] MEDS ORDERED: Lidocaine 1% Plain 30 ml INJ ONE (11:00)
[2020-03-08] MEDS ORDERED: Heparin1,000 units/500ml Premix(Conc:2 units/ml) IV ONE (11:00)
--- NOTE | 2020-03-08 11:00 | NUR ---
NURSE NOTES: Partial bath given to patient. BM noted, small, brown, soft stool. Allegra-care provided. Buttocks and perineal area excoriation noted, cleaned and applied calazime cream. Tyler catheter intact. Linens changed, placed patient in clean gown. Restraints care provided. Safety precautions in place. Blood glucose checked, insulin given per sliding scale. TF resumed after care. Patient is tolerating room air, saturating 99%. Bed locked, alarmed, and in lowest position, side rails up x3. Will continue to monitor patient.
--- NOTE | 2020-03-08 11:04 | Diagnostic Imaging Report ---
Indication: Shortness of breath Technique: One view of the chest Comparison: 03/07/2020 Findings: Bilateral interstitial and airspace disease appears somewhat improved. Stable satisfactory position of orogastric tube. The heart remains enlarged. Left chest pacemaker again demonstrated. Impression: Over one day, slight improvement of bilateral infiltrates versus edema
--- NOTE | 2020-03-08 12:06 | Pulmonolgy Critical Care Note ---
Critical Care - Asmt/Plan Problems: (1) Acute respiratory failure (2) COVID-19 virus infection (3) Sepsis (4) ESRD (end stage renal disease) on dialysis (5) Accelerated hypertension (6) Decubital ulcer (7) Pacemaker (8) Diabetes (9) Blindness of both eyes (10) Morbid obesity (11) HTN (hypertension) Respiratory: monitor respiratory rate, adjust FIO2, CXR Cardiac: continue to monitor HR/BP Renal: F/U I&O Infectious Disease: check cultures, continue antibiotics Gastrointestinal: continue feedings/current rate Endocrine: monitor blood sugar Hematologic: monitor H/H, transfuse if hgb<8.5 Neurologic: keep patient comfortable Prophylaxis: Protonix Disposition: transfer to Notes Reviewed: floor broker, 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, consultants, adult protective caseworkerfarm general manager - Objective Last 24 Hour Vital Signs Date Time Temp Pulse Resp B/P (MAP) Pulse Ox O2 Delivery O2 Flow Rate FiO2 03/08/20 11:00 86 30 141/93 (109) 96 03/08/20 10:00 86 24 141/70 (93) 97 03/08/20 09:00 86 23 155/79 (104) 98 03/08/20 08:51 98.7 87 18 156/81 (106) 97 03/08/20 08:00 86 25 166/141 (149) 98 03/08/20 08:00 78 03/08/20 08:00 Room Air 03/08/20 07:00 89 18 130/61 (84) 99 03/08/20 06:00 99.3 85 26 140/56 (84) 98 03/08/20 05:58 177/126 03/08/20 05:00 86 23 177/126 (143) 98 03/08/20 04:00 81 03/08/20 04:00 86 23 136/84 (101) 98 03/08/20 04:00 Nasal Cannula 1.0 03/08/20 03:00 87 24 164/73 (103) 98 03/08/20 02:00 79 23 141/62 (88) 100 03/08/20 01:00 79 21 139/75 (96) 99 03/08/20 00:35 175/59 03/08/20 00:00 76 30 140/58 (85) 100 03/08/20 00:00 Nasal Cannula 1.0 03/08/20 00:00 81 03/07/20 23:00 84 26 164/94 (117) 100 03/07/20 22:00 80 27 136/97 (110) 99 03/07/20 21:00 78 23 158/50 (86) 97 03/07/20 20:15 100 Nasal Cannula 2.0 28 03/07/20 20:00 78 23 138/58 (84) 100 03/07/20 20:00 Nasal Cannula 1.0 03/07/20 20:00 85 03/07/20 19:00 78 19 158/51 (86) 100 03/07/20 18:00 77 24 149/69 (95) 100 03/07/20 17:00 78 27 155/66 (95) 100 03/07/20 16:00 Nasal Cannula 1.0 03/07/20 16:00 99.5 77 25 128/58 (81) 100 03/07/20 16:00 79 03/07/20 15:00 78 26 142/53 (82) 100 03/07/20 14:00 77 29 159/51 (87) 100 03/07/20 13:00 78 31 150/62 (91) 99 Status: awake Condition: critical, improving HEENT: atraumatic Lungs: rhonchi Heart: regular Abdomen: active bowel sounds Extremities: no C/C/E Accucheck: 145 Critical Care - Subjective ROS Limited/Unobtainable: No Condition: critical EKG Rhythm: Sinus Rhythm FI02: 28 Vent Tidal Volume: 600 Sputum Amount: Small PEEP: 0.0 PIP: 21 Tube Feeding Amount: 35 I&O: Intake and Output 03/07/20 03/08/20 19:00 07:00 Intake Total 701 ml 480 ml Output Total 100 ml 65 ml Balance 601 ml 415 ml Intake Free Water 160 ml 200 ml IV Total 56 ml Tube Feeding 455 ml 280 ml Other 30 ml Output Urine Total 100 ml 65 ml # Bowel Movements 4 5 CXR: improved interstitial edema ET-Tube: 7.5 ET Position: 25 Labs: Laboratory Tests Test 03/08/20 04:00 White Blood Count 12.3 K/UL (4.8-10.8) H Red Blood Count 4.07 M/UL (4.20-5.40) L Hemoglobin 9.7 G/DL (12.0-16.0) L Hematocrit 30.9 % (37.0-47.0) L Mean Corpuscular Volume 76 FL (80-99) L Mean Corpuscular Hemoglobin 23.8 PG (27.0-31.0) L Mean Corpuscular Hemoglobin Concent 31.3 G/DL (32.0-36.0) L Red Cell Distribution Width 15.4 % (11.6-14.8) H Platelet Count 376 K/UL (150-450) Mean Platelet Volume 5.3 FL (6.5-10.1) L Neutrophils (%) (Auto) 67.1 % (45.0-75.0) Lymphocytes (%) (Auto) 16.4 % (20.0-45.0) L Monocytes (%) (Auto) 13.8 % (1.0-10.0) H Eosinophils (%) (Auto) 2.4 % (0.0-3.0) Basophils (%) (Auto) 0.4 % (0.0-2.0) Sodium Level 145 MMOL/L (136-145) Potassium Level 4.4 MMOL/L (3.5-5.1) Chloride Level 101 MMOL/L (98-107) Carbon Dioxide Level 35 MMOL/L (21-32) H Anion Gap 9 mmol/L (5-15) Blood Urea Nitrogen 49 mg/dL (7-18) H Creatinine 7.1 MG/DL (0.55-1.30) H Estimat Glomerular Filtration Rate 7.2 mL/min (>60) Glucose Level 82 MG/DL (74-106) Uric Acid 4.2 MG/DL (2.6-7.2) Calcium Level 9.1 MG/DL (8.5-10.1) Phosphorus Level 4.0 MG/DL (2.5-4.9) Magnesium Level 3.0 MG/DL (1.8-2.4) H Total Bilirubin 0.9 MG/DL (0.2-1.0) Aspartate Amino Transf (AST/SGOT) 38 U/L (15-37) H Alanine Aminotransferase (ALT/SGPT) 27 U/L (12-78) Alkaline Phosphatase 268 U/L (46-116) H Total Protein 7.6 G/DL (6.4-8.2) Albumin 3.2 G/DL (3.4-5.0) L Globulin 4.4 g/dL Albumin/Globulin Ratio 0.7 (1.0-2.7) L Meghana Murillo MD Mar 08, 2020 12:06
--- NOTE | 2020-03-08 12:09 | NUR ---
NURSE NOTES: Patient noted still restless in bed. Dr Murillo present in the unit, ordered OK to transfer patient to [facility], noted, entered, will carry out. Will continue to monitor patient.
--- NOTE | 2020-03-08 12:27 | Nephrology Progress Note ---
Assessment/Plan Problem List: (1) Acute respiratory failure (2) ESRD (end stage renal disease) on dialysis (3) UTI (urinary tract infection) (4) Patient is Alevism (5) Pacemaker (6) Diabetes (7) Obesity (BMI 30-39.9) Assessment ARDS (adult respiratory distress syndrome) Fever Sepsis UTI (urinary tract infection) Respiratory failure, intubated on ventilator Thrombocytopenia Lymphopenia End stage renal disease on dialysis. Has a right upper arm dialysis fistula as Acces . Getting dialysis Sunday. morbid obesity Anemia / Jehova's witness CAD previous stent HTN- hypertensive urgency upon arrival to [facility]. s/p AVG DM 2 bilateral eye blindness h/o CHF Pacemaker Plan Patient extubated last night March 04, and remains extubated Patient positive for Covid 19 Per ID and pulmonary, Last dialyzed March 06 next March 09 EPO, thiamin and b6 Phos binders NGT feeding per consultants Remains full code at this time Subjective ROS Limited/Unobtainable: No Constitutional: Reports: malaise, weakness Objective Objective Last 24 Hour Vital Signs Date Time Temp Pulse Resp B/P (MAP) Pulse Ox O2 Delivery O2 Flow Rate FiO2 03/08/20 12:00 Room Air 03/08/20 11:00 86 30 141/93 (109) 96 03/08/20 10:00 86 24 141/70 (93) 97 03/08/20 09:00 86 23 155/79 (104) 98 03/08/20 08:51 98.7 87 18 156/81 (106) 97 03/08/20 08:00 86 25 166/141 (149) 98 03/08/20 08:00 78 03/08/20 08:00 Room Air 03/08/20 07:00 89 18 130/61 (84) 99 03/08/20 06:00 99.3 85 26 140/56 (84) 98 03/08/20 05:58 177/126 03/08/20 05:00 86 23 177/126 (143) 98 03/08/20 04:00 81 03/08/20 04:00 86 23 136/84 (101) 98 03/08/20 04:00 Nasal Cannula 1.0 03/08/20 03:00 87 24 164/73 (103) 98 4/13/20 02:00 79 23 141/62 (88) 100 03/08/20 01:00 79 21 139/75 (96) 99 03/08/20 00:35 175/59 03/08/20 00:00 76 30 140/58 (85) 100 03/08/20 00:00 Nasal Cannula 1.0 03/08/20 00:00 81 03/07/20 23:00 84 26 164/94 (117) 100 03/07/20 22:00 80 27 136/97 (110) 99 03/07/20 21:00 78 23 158/50 (86) 97 03/07/20 20:15 100 Nasal Cannula 2.0 28 03/07/20 20:00 78 23 138/58 (84) 100 03/07/20 20:00 Nasal Cannula 1.0 03/07/20 20:00 85 03/07/20 19:00 78 19 158/51 (86) 100 03/07/20 18:00 77 24 149/69 (95) 100 03/07/20 17:00 78 27 155/66 (95) 100 03/07/20 16:00 Nasal Cannula 1.0 03/07/20 16:00 99.5 77 25 128/58 (81) 100 03/07/20 16:00 79 03/07/20 15:00 78 26 142/53 (82) 100 03/07/20 14:00 77 29 159/51 (87) 100 03/07/20 13:00 78 31 150/62 (91) 99 Intake and Output 03/07/20 03/08/20 19:00 07:00 Intake Total 701 ml 480 ml Output Total 100 ml 65 ml Balance 601 ml 415 ml Intake Free Water 160 ml 200 ml IV Total 56 ml Tube Feeding 455 ml 280 ml Other 30 ml Output Urine Total 100 ml 65 ml # Bowel Movements 4 5 Laboratory Tests 03/08/20 04:00: White Blood Count 12.3H, Red Blood Count 4.07L, Hemoglobin 9.7L, Hematocrit 30.9L, Mean Corpuscular Volume 76L, Mean Corpuscular Hemoglobin 23.8L, Mean Corpuscular Hemoglobin Concent 31.3L, Red Cell Distribution Width 15.4H, Platelet Count 376, Mean Platelet Volume 5.3L, Neutrophils (%) (Auto) 67.1, Lymphocytes (%) (Auto) 16.4L, Monocytes (%) (Auto) 13.8H, Eosinophils (%) (Auto ) 2.4, Basophils (%) (Auto) 0.4, Sodium Level 145, Potassium Level 4.4, Chloride Level 101, Carbon Dioxide Level 35H, Anion Gap 9, Blood Urea Nitrogen 49H, Creatinine 7.1H, Estimat Glomerular Filtration Rate 7.2, Glucose Level 82, Uric Acid 4.2, Calcium Level 9.1, Phosphorus Level 4.0, Magnesium Level 3.0H, Total Bilirubin 0.9, Aspartate Amino Transf (AST/SGOT) 38H, Alanine Aminotransferase (ALT/SGPT) 27, Alkaline Phosphatase 268H, Total Protein 7.6, Albumin 3.2L, Globulin 4.4, Albumin/Globulin Ratio 0.7L Height (Feet): 5 Height (Inches): 7.00 Weight (Pounds): 239 General Appearance: no apparent distress, lethargic Cardiovascular: normal rate Respiratory/Chest: decreased breath sounds Abdomen: distended Bryan Hunter MD Mar 08, 2020 12:27
[2020-03-08] MEDS: Thiamine HCl 100 MG in D5W 55 ML IVPB SCH (12:43)
--- NOTE | 2020-03-08 13:09 | NUR ---
NURSE NOTES: Radiology at bedside for PICC line insertion.
--- NOTE | 2020-03-08 14:00 | NUR ---
NURSE NOTES: Patient remains restless in bed. PICC Line present on the left upper arm, awaiting for xray/confirmation ok to use. Restraints in place. Repositioned and placed patient's HOB elevated. Will continue to monitor.
--- NOTE | 2020-03-08 14:18 | NUR ---
RADIOLOGY DEPT., CHEST X-RAY DONE.-P.DYE
--- NOTE | 2020-03-08 15:06 | Brief Operative Note ---
Immediate Post Operative Note Operative Note Pre-op Diagnosis: needs long-term IV access Procedure: PICC Surgeon: Wendy Wright Anesthesia: local Specimen: none Complications: none Fluids: none Estimated Blood Loss: none Implant(s) used?: No Bhanu Wright MD Mar 08, 2020 15:06
--- NOTE | 2020-03-08 15:50 | NUR ---
CASE MANAGEMENT: REVIEW 03/08/20 SI: (((COVID-19 VIRUS DETECTED))) ACUTE RESP FAILURE . ESRD on HD . UTI 99.3 85 26 140/56 98% NC 1L WBC 12.3 H/H 9.7/30.9 CO2 35 BUN 49 CREAT 7.1 MG 3.0 AST 38 ALKP 268 IS:IV THIAMINE Q24HR VITAMIN B6 GT QD RENVELA NG Q6HR EPOETIN SUBQ MWF IV PROTONIX BID LIPITOR NG QHS HEPARIN SQ BID NOVOLOG SQ Q6HR HYDRALAZINE Q4HR/PRN GT FEEDING \: ICU STATUS DCP: [facility]: CHEST-RAY ()-slight improvement of bilateral infiltrates versus edema LTAC EVAL PICC LINE PLACED FOR RETIREMENT ACCESS
--- NOTE | 2020-03-08 16:28 | NUR ---
NURSE NOTES: Patient noted to be restless in bed. Tolerating room air with saturation 96-98%. NGT in place, TF infusing. HOB elevated. Restraints in place. Will continue to monitor.
--- NOTE | 2020-03-08 16:50 | Diagnostic Imaging Report ---
Indications: Needs long-term IV access Technique: Procedure performed at bedside. Procedural timeout performed. Ultrasound confirms patent compressible left basilic vein. Total sterile technique, including sterile probe cover and sterile gel, sterile gloves, hand hygiene, hat, mask,, sterile gown, large sterile drape, and preparation with 2% chlorhexidine utilized. Local anesthesia with 1% lidocaine. Under real-time ultrasound guidance, puncture distal vein using 21-gauge needle, passage 0.018 guidewire (which would not pass centrally beyond about 50 cm in patient with known left chest pacemaker), exchange for 4 Yemeni peel-away sheath. 4 Yemeni Bard dual-lumen power PICC cut to 43 cm. It was inserted through the peel-away sheath. Peel-away sheath and guidewire removed. Catheter fixed to the skin. Both catheter ports aspirated and flushed. Patient tolerated procedure well, without immediate complication. Followup chest x-ray obtained, documents catheter tip position probably behind the pacemaker power pack as it is not seen centrally beyond it so it is presumably within the left subclavian vein. Impression: Successful bedside placement of left arm PICC under sonographic guidance, as described above, tip probably within the subclavian vein so suitable for use as a midline.
--- NOTE | 2020-03-08 18:00 | NUR ---
NURSE NOTES: Bed bath given, no BM noted at this time. Oral care given. NGT in place, TF Nepro at 35ml/hr infusing. Bilateral heel optifoam placed. Restraints care provided. PICC line on left upper arm intact, patent. Tyler catheter in place, intact, scant amount of dark jessa urine noted. Patient is tolerating room air, saturating 99% at this time. Patient remained afebrile throughout the shift. Will continue to monitor.
--- NOTE | 2020-03-08 19:18 | NUR ---
HAND-OFF: Report given to NATHALIA Hunter. Endorsed plan of care.
--- NOTE | 2020-03-08 19:30 | NUR ---
NURSE NOTES: Received pt resting well on room air02 sat 98%, SR with 1st degree AVB, on the monitor, bp stable afebrile. Tolerating Nepro at 35ml/hr . HOB kept elevated . On aspiration precaution. MANISHA AV shunt with good bruit, schedule for HD in am. Tyler to gravity with small amt of blood stained urine. Monitor I and O. Monitor lytes.. Pt with left heel DTI and excoriation in perinneal area. Tx applied. Will continue to monitor.
[2020-03-08] MEDS ORDERED: Dyna-Hex 2% Top Sol 2oz TOPIC SCH (20:00)
[2020-03-08] MEDS: Epoetin Alfa-EPBX(ESRD on dialysis)10,000 unit/ml vial SUBQ SCH (21:16)
--- NOTE | 2020-03-08 21:30 | NUR ---
NURSE NOTES: Suctioned tn whitish secretions moderate in amt. Oral care done. PM care done.
--- NOTE | 2020-03-08 23:20 | NUR ---
NURSE NOTES: Transfer pt to [facility] via bed . with campus monitor. VSS.
--- NOTE | 2020-03-08 23:34 | NUR ---
INTER-FACILITY TRANSFER: Patient transferred to [facility], per Dr Aaliyah Henning. Report given to Maribeth SLOAN . Patient transferred with valuables and medications. Belongings verified upon transferr and given to. Family/S.O. notified of transfer.
--- NOTE | 2020-03-08 23:35 | NUR ---
NURSE NOTES: Received pt from NATHALIA Hunter. Pt asleep. Bed in lowest position. Call light within reach. Will continue to monitor.
[2020-03-08] MEDS ORDERED: Acetaminophen 650mg/20.3ml GT PRN (23:40)
[2020-03-08] MEDS ORDERED: Labetalol 5mg/ml 20ml vial IV PRN (23:42)
[2020-03-09 04:00] VITALS: BP 152/69
[2020-03-09] MEDS: NovoLOG Insulin Flexpen SUBQ SCH ×5 (05:20→23:24)
[2020-03-09] MEDS: Renvela 800mg Pkt NG SCH ×5 (06:19→23:24)
[2020-03-09 07:13] LABS: ANION GAP 12 mmol/L (5-15); BLOOD UREA NITROGEN 65 mg/dL (7-18); CALCIUM 9.3 MG/DL (8.5-10.1); CARBON DIOXIDE 32 MMOL/L (21-32); CHLORIDE 100 MMOL/L (98-107); CREATININE 8.7 MG/DL (0.55-1.30); POTASSIUM 3.5 MMOL/L (3.5-5.1); SODIUM 144 MMOL/L (136-145)
[2020-03-09 07:26] LABS: BASOPHILS % (AUTO) 0.8 % (0.0-2.0); EOSINOPHILS % (AUTO) 4.8 % (0.0-3.0); HEMATOCRIT 30.2 % (37.0-47.0); HEMOGLOBIN 9.4 G/DL (12.0-16.0); LYMPHOCYTES % (AUTO) 13.6 % (20.0-45.0); MEAN CORPUSCULAR VOLUME 75 FL (80-99); NEUTROPHILS % (AUTO) 68.9 % (45.0-75.0); PLATELET COUNT 374 K/UL (150-450); RED BLOOD COUNT 4.03 M/UL (4.20-5.40); RED CELL DISTRIBUTION WIDTH 15.7 % (11.6-14.8); WHITE BLOOD COUNT 13.1 K/UL (4.8-10.8)
--- NOTE | 2020-03-09 07:38 | NUR ---
HAND-OFF: Report given to NATHALIA Vanegas. Pt stable.
[2020-03-09 08:00] VITALS: BP 126/66
--- NOTE | 2020-03-09 08:00 | NUR ---
NURSE NOTES: Recvd pt. Pt is on room air with no sign of resp distress. Pt is on night monitor with SR with 1st degree AVB, VSS. Pt has NGT with tube feeding Nepro at 35ml/hr, tolerating well. HOB kept elevated .Aspiration precaution observed. Pt has MANISHA AV shunt with good bruit, schedule for HD ithis afternoon. Pt has Tyler for urinary retention draining to gravity. Pt has left heel DTI and perineal excoriation. PT is on soft wrist restraints bilat, bed in lowest position, brakes on, will continue with plan of care.
[2020-03-09] MEDS: Heparin 5000 units/ml inj SUBQ SCH ×2 (08:26→20:14)
[2020-03-09] MEDS: Pantoprazole Inj IVP SCH ×2 (08:30→20:14)
[2020-03-09] MEDS: Pyridoxine 50mg tab NG SCH (08:31)
--- NOTE | 2020-03-09 08:42 | NUR ---
RD ASSESSMENT & RECOMMENDATIONS SEE CARE ACTIVITY FOR COMPLETE ASSESSMENT DAILY ESTIMATED NEEDS: Needs based on obesity, pulmonary, HD 78kg abw 20-25 kcals/kg 3135-0665 total kcals 1.25-1.8 g protein/kg 98-140 g total protein per MD, pt on HD NUTRITION DIAGNOSIS: * Swallowing difficulty R/T respiratory status as evidenced by pt orally intubated, now s/p extubation, on NGT feeding. * Altered nutrition related lab values R/T ESRD as evidenced by elev creat (9.4), elev BNP (>29810), elev phos (6.0-> wnl). CURRENT TF:Nepro @ 35ml/hr x 24 hrs + Prosource 1pkt TID PO DIET RECOMMENDATIONS: EMPLOYEE RELATIONS [employer]IST eval post extubation - Renal diet + when appropriate ENTERAL NUTRITION RECOMMENDATIONS: Nepro @ 35ml/hr x 24 hrs + Prosource 1pkt TID to provide 840ml, 1512kcal, 68 +33g prot, 611ml free water * Maintain current TF @ goal. * Add Prosource 1pkt TID to meet protein needs * HOB over 30 degrees/ water flush per MD. ADDITIONAL RECOMMENDATIONS: 1) Calibrated bedscale wt for accurate CBW- daily wts for ESRD dx 2) Add Nephrovite x 1 3) Monitor BGs closely, for hypoglycemia-> rec D5 when TF is held h/o frequent hypoglycemia during prev admissions 4) Consider phos binders for consistently elevated phos level -> now added (02/24) 5) EMPLOYEE RELATIONS SPECIALIST eval for texture s/p extubation
--- NOTE | 2020-03-09 09:30 | Cardiology Progress Note ---
Assessment/Plan Assessment/Plan 1. Respiratory failure. 2. History of obesity hypoventilation syndrome. 3. History of pulmonary hypertension previously. 4. Urinary tract infection. 5. covid 19 infection confimred 6. pneumonia. 7. History of bacteremia with Staph epi recently on 02/05/2020. i did not examine pt personally i did not feel the risk to me personally are worth the limited information that could be obtained while pt is not communicative and on a vent with confirmed covid 19 tele reviewed sinus and atrial paced d/w rn on nc no cough no fever no diarrhea sats are 99- 100% on 30% fio2 contineuign on abx vanco for previous bacteremia note during hsipitalization in early january holding off in ordering echo at this time due to active covid 19 infecion all labs reviewed wbc seems higher dialysis as planned Subjective ROS Limited/Unobtainable: Yes Subjective on a vent Objective Last 24 Hour Vital Signs Date Time Temp Pulse Resp B/P (MAP) Pulse Ox O2 Delivery O2 Flow Rate FiO2 03/09/20 08:00 97.3 81 26 126/66 (86) 94 03/09/20 04:00 97.6 72 152/69 (96) 99 03/09/20 04:00 75 03/09/20 04:00 Room Air 03/09/20 00:00 Room Air 03/09/20 00:00 75 03/08/20 22:00 77 36 153/82 (105) 93 03/08/20 21:14 95 Room Air 21 03/08/20 21:00 81 32 141/70 (93) 90 03/08/20 20:00 98.2 78 26 99/83 (88) 93 03/08/20 20:00 Room Air 03/08/20 20:00 81 03/08/20 19:00 74 19 162/59 (93) 99 03/08/20 18:00 76 26 141/83 (102) 98 03/08/20 17:42 98.7 75 31 166/70 (102) 98 03/08/20 17:00 74 18 94 03/08/20 16:00 72 28 139/99 (112) 99 03/08/20 16:00 72 03/08/20 16:00 Room Air 03/08/20 15:30 77 29 129/74 (92) 92 03/08/20 15:20 76 22 146/46 (79) 95 03/08/20 15:15 74 11 172/86 (114) 94 03/08/20 14:00 75 158/72 (100) 96 03/08/20 13:00 79 22 152/63 (92) 95 03/08/20 12:00 79 03/08/20 12:00 98.9 82 41 146/56 (86) 97 03/08/20 12:00 Room Air 03/08/20 11:00 86 30 141/93 (109) 96 03/08/20 10:00 86 24 141/70 (93) 97 Intake and Output 03/08/20 03/09/20 19:00 07:00 Intake Total 576 ml 105 ml Output Total 20 ml 30 ml Balance 556 ml 75 ml IV Total 56 ml Tube Feeding 420 ml 105 ml Other 100 ml Output Urine Total 20 ml 30 ml # Bowel Movements 2 Laboratory Tests Test 03/09/20 06:30 White Blood Count 13.1 K/UL (4.8-10.8) H Red Blood Count 4.03 M/UL (4.20-5.40) L Hemoglobin 9.4 G/DL (12.0-16.0) L Hematocrit 30.2 % (37.0-47.0) L Mean Corpuscular Volume 75 FL (80-99) L Mean Corpuscular Hemoglobin 23.3 PG (27.0-31.0) L Mean Corpuscular Hemoglobin Concent 31.1 G/DL (32.0-36.0) L Red Cell Distribution Width 15.7 % (11.6-14.8) H Platelet Count 374 K/UL (150-450) Mean Platelet Volume 5.4 FL (6.5-10.1) L Neutrophils (%) (Auto) 68.9 % (45.0-75.0) Lymphocytes (%) (Auto) 13.6 % (20.0-45.0) L Monocytes (%) (Auto) 12.0 % (1.0-10.0) H Eosinophils (%) (Auto) 4.8 % (0.0-3.0) H Basophils (%) (Auto) 0.8 % (0.0-2.0) Sodium Level 144 MMOL/L (136-145) Potassium Level 3.5 MMOL/L (3.5-5.1) Chloride Level 100 MMOL/L (98-107) Carbon Dioxide Level 32 MMOL/L (21-32) Anion Gap 12 mmol/L (5-15) Blood Urea Nitrogen 65 mg/dL (7-18) H Creatinine 8.7 MG/DL (0.55-1.30) H Estimat Glomerular Filtration Rate 5.6 mL/min (>60) Glucose Level 135 MG/DL (74-106) H Calcium Level 9.3 MG/DL (8.5-10.1) Wilfredo Reyna MD Mar 09, 2020 09:30
--- NOTE | 2020-03-09 10:23 | Cardiology Progress Note ---
Assessment/Plan Assessment/Plan 1. Respiratory failure. 2. History of obesity hypoventilation syndrome. 3. History of pulmonary hypertension previously. 4. Urinary tract infection. 5. covid 19 infection confimred 6. pneumonia. 7. History of bacteremia with Staph epi recently on 02/05/2020. 8. somnolence i did not examine pt personally i did not feel the risk to me personally are worth the limited information that could be obtained while pt is not communicative and on a vent with confirmed covid 19 tele reviewed sinus and atrial paced d/w rn extensively as noted above is sleepy in restraint has og and sotelo sat normal off oxygen no cough no fever no diarrhea sats are 94- 100% on 30% fio2 contineuign on abx vanco for previous bacteremia note during hsipitalization in early january holding off in ordering echo at this time due to active covid 19 infecion all labs reviewed wbc seems higher dialysis as planned for today sleepy i am not sure that bipap can be used in the setting of active covid infection will leave to dr hazel Subjective Subjective per rn confused in restraints has ng tube and sotelo , toelrating feedi no compaint of any thing and is sleepy Objective Last 24 Hour Vital Signs Date Time Temp Pulse Resp B/P (MAP) Pulse Ox O2 Delivery O2 Flow Rate FiO2 03/09/20 09:53 94 Room Air 21 03/09/20 08:00 97.3 81 26 126/66 (86) 94 03/09/20 04:00 97.6 72 152/69 (96) 99 03/09/20 04:00 75 03/09/20 04:00 Room Air 03/09/20 00:00 Room Air 03/09/20 00:00 75 03/08/20 22:00 77 36 153/82 (105) 93 03/08/20 21:14 95 Room Air 21 03/08/20 21:00 81 32 141/70 (93) 90 03/08/20 20:00 98.2 78 26 99/83 (88) 93 03/08/20 20:00 Room Air 03/08/20 20:00 81 03/08/20 19:00 74 19 162/59 (93) 99 03/08/20 18:00 76 26 141/83 (102) 98 03/08/20 17:42 98.7 75 31 166/70 (102) 98 03/08/20 17:00 74 18 94 03/08/20 16:00 72 28 139/99 (112) 99 03/08/20 16:00 72 03/08/20 16:00 Room Air 03/08/20 15:30 77 29 129/74 (92) 92 03/08/20 15:20 76 22 146/46 (79) 95 03/08/20 15:15 74 11 172/86 (114) 94 03/08/20 14:00 75 158/72 (100) 96 03/08/20 13:00 79 22 152/63 (92) 95 03/08/20 12:00 79 03/08/20 12:00 98.9 82 41 146/56 (86) 97 03/08/20 12:00 Room Air 03/08/20 11:00 86 30 141/93 (109) 96 General Appearance: patient on isolation, isolation precautions - not examind deu to active covid infection Intake and Output 03/08/20 03/09/20 19:00 07:00 Intake Total 576 ml 105 ml Output Total 20 ml 30 ml Balance 556 ml 75 ml IV Total 56 ml Tube Feeding 420 ml 105 ml Other 100 ml Output Urine Total 20 ml 30 ml # Bowel Movements 2 Laboratory Tests Test 03/09/20 06:30 White Blood Count 13.1 K/UL (4.8-10.8) H Red Blood Count 4.03 M/UL (4.20-5.40) L Hemoglobin 9.4 G/DL (12.0-16.0) L Hematocrit 30.2 % (37.0-47.0) L Mean Corpuscular Volume 75 FL (80-99) L Mean Corpuscular Hemoglobin 23.3 PG (27.0-31.0) L Mean Corpuscular Hemoglobin Concent 31.1 G/DL (32.0-36.0) L Red Cell Distribution Width 15.7 % (11.6-14.8) H Platelet Count 374 K/UL (150-450) Mean Platelet Volume 5.4 FL (6.5-10.1) L Neutrophils (%) (Auto) 68.9 % (45.0-75.0) Lymphocytes (%) (Auto) 13.6 % (20.0-45.0) L Monocytes (%) (Auto) 12.0 % (1.0-10.0) H Eosinophils (%) (Auto) 4.8 % (0.0-3.0) H Basophils (%) (Auto) 0.8 % (0.0-2.0) Sodium Level 144 MMOL/L (136-145) Potassium Level 3.5 MMOL/L (3.5-5.1) Chloride Level 100 MMOL/L (98-107) Carbon Dioxide Level 32 MMOL/L (21-32) Anion Gap 12 mmol/L (5-15) Blood Urea Nitrogen 65 mg/dL (7-18) H Creatinine 8.7 MG/DL (0.55-1.30) H Estimat Glomerular Filtration Rate 5.6 mL/min (>60) Glucose Level 135 MG/DL (74-106) H Calcium Level 9.3 MG/DL (8.5-10.1) Wilfredo Reyna MD Mar 09, 2020 10:23
--- NOTE | 2020-03-09 11:52 | General Progress Note ---
Assessment/Plan Problem List: (1) Obesity (BMI 30-39.9) ICD Codes: E66.9 - Obesity, unspecified SNOMED: 313999307, 057115290 (2) COVID-19 virus infection ICD Codes: U07.1 - COVID-19 SNOMED: 922229001 (3) Acute respiratory failure ICD Codes: J96.00 - Acute respiratory failure, unspecified whether with hypoxia or hypercapnia SNOMED: 67949001 (4) Blindness of both eyes ICD Codes: H54.0 - Blindness SNOMED: 988473455 (5) ESRD (end stage renal disease) on dialysis ICD Codes: N18.6 - End stage renal disease; Z99.2 - Dependence on renal dialysis SNOMED: 147002889 (6) Anemia ICD Codes: D64.9 - Anemia, unspecified SNOMED: 094546097 (7) Diabetes ICD Codes: E11.9 - Type 2 diabetes mellitus without complications SNOMED: 41690683 (8) AMS (altered mental status) ICD Codes: R41.82 - Altered mental status, unspecified SNOMED: 569942761 Status: unchanged Assessment/Plan: vent abx dialysis cbc bmp am ltach eval Subjective Constitutional: Reports: weakness Allergies: Coded Allergies: NO KNOWN ALLERGIES (Unverified Allergy, Unknown, 10/15/15) All Systems: reviewed and negative except above Subjective ng lethargic sleepy Objective Last 24 Hour Vital Signs Date Time Temp Pulse Resp B/P (MAP) Pulse Ox O2 Delivery O2 Flow Rate FiO2 03/09/20 09:53 94 Room Air 21 03/09/20 09:00 81 03/09/20 08:00 97.3 81 26 126/66 (86) 94 03/09/20 08:00 Room Air 03/09/20 04:00 97.6 72 152/69 (96) 99 03/09/20 04:00 75 03/09/20 04:00 Room Air 03/09/20 00:00 Room Air 03/09/20 00:00 75 03/08/20 22:00 77 36 153/82 (105) 93 03/08/20 21:14 95 Room Air 21 03/08/20 21:00 81 32 141/70 (93) 90 03/08/20 20:00 98.2 78 26 99/83 (88) 93 03/08/20 20:00 Room Air 03/08/20 20:00 81 03/08/20 19:00 74 19 162/59 (93) 99 03/08/20 18:00 76 26 141/83 (102) 98 03/08/20 17:42 98.7 75 31 166/70 (102) 98 03/08/20 17:00 74 18 94 03/08/20 16:00 72 28 139/99 (112) 99 03/08/20 16:00 72 03/08/20 16:00 Room Air 03/08/20 15:30 77 29 129/74 (92) 92 03/08/20 15:20 76 22 146/46 (79) 95 03/08/20 15:15 74 11 172/86 (114) 94 03/08/20 14:00 75 158/72 (100) 96 03/08/20 13:00 79 22 152/63 (92) 95 03/08/20 12:00 79 03/08/20 12:00 98.9 82 41 146/56 (86) 97 03/08/20 12:00 Room Air Intake and Output 03/08/20 03/09/20 19:00 07:00 Intake Total 576 ml 105 ml Output Total 20 ml 30 ml Balance 556 ml 75 ml IV Total 56 ml Tube Feeding 420 ml 105 ml Other 100 ml Output Urine Total 20 ml 30 ml # Bowel Movements 2 Laboratory Tests 03/09/20 06:30: White Blood Count 13.1H, Red Blood Count 4.03L, Hemoglobin 9.4L, Hematocrit 30.2L, Mean Corpuscular Volume 75L, Mean Corpuscular Hemoglobin 23.3L, Mean Corpuscular Hemoglobin Concent 31.1L, Red Cell Distribution Width 15.7H, Platelet Count 374, Mean Platelet Volume 5.4L, Neutrophils (%) (Auto) 68.9, Lymphocytes (%) (Auto) 13.6L, Monocytes (%) (Auto) 12.0H, Eosinophils (%) (Auto ) 4.8H, Basophils (%) (Auto) 0.8, Sodium Level 144, Potassium Level 3.5, Chloride Level 100, Carbon Dioxide Level 32, Anion Gap 12, Blood Urea Nitrogen 65H, Creatinine 8.7H, Estimat Glomerular Filtration Rate 5.6, Glucose Level 135H , Calcium Level 9.3 Height (Feet): 5 Height (Inches): 7.00 Weight (Pounds): 239 General Appearance: lethargic EENT: normal ENT inspection Neck: normal alignment Cardiovascular: normal rate, regular rhythm Respiratory/Chest: no accessory muscle use Extremities: normal inspection Skin: normal pigmentation Roderick Henning DO Mar 09, 2020 11:52
[2020-03-09] MEDS: Thiamine HCl 100 MG in D5W 55 ML IVPB SCH (11:53)
[2020-03-09 12:00] VITALS: BP 125/70
--- NOTE | 2020-03-09 12:37 | Pulmonology Progress Note ---
Assessment/Plan Problems: (1) Sepsis (2) Acute respiratory failure (3) Accelerated hypertension (4) COVID-19 virus infection (5) ESRD (end stage renal disease) on dialysis (6) Morbid obesity (7) Patient is Amish (8) Diabetes Assessment/Plan improving still has NG tube on isolation afebrile in the last few days f/u cultures respiratory treatment Subjective ROS Limited/Unobtainable: No Constitutional: Reports: no symptoms HEENT: Repors: no symptoms Respiratory: Reports: no symptoms Allergies: Coded Allergies: NO KNOWN ALLERGIES (Unverified Allergy, Unknown, 10/15/15) Objective Last 24 Hour Vital Signs Date Time Temp Pulse Resp B/P (MAP) Pulse Ox O2 Delivery O2 Flow Rate FiO2 03/09/20 09:53 94 Room Air 21 03/09/20 09:00 81 03/09/20 08:00 97.3 81 26 126/66 (86) 94 03/09/20 08:00 Room Air 03/09/20 04:00 97.6 72 152/69 (96) 99 03/09/20 04:00 75 03/09/20 04:00 Room Air 03/09/20 00:00 Room Air 03/09/20 00:00 75 03/08/20 22:00 77 36 153/82 (105) 93 03/08/20 21:14 95 Room Air 21 03/08/20 21:00 81 32 141/70 (93) 90 03/08/20 20:00 98.2 78 26 99/83 (88) 93 03/08/20 20:00 Room Air 03/08/20 20:00 81 03/08/20 19:00 74 19 162/59 (93) 99 03/08/20 18:00 76 26 141/83 (102) 98 03/08/20 17:42 98.7 75 31 166/70 (102) 98 03/08/20 17:00 74 18 94 03/08/20 16:00 72 28 139/99 (112) 99 03/08/20 16:00 72 03/08/20 16:00 Room Air 03/08/20 15:30 77 29 129/74 (92) 92 03/08/20 15:20 76 22 146/46 (79) 95 03/08/20 15:15 74 11 172/86 (114) 94 03/08/20 14:00 75 158/72 (100) 96 03/08/20 13:00 79 22 152/63 (92) 95 Intake and Output 03/08/20 03/09/20 19:00 07:00 Intake Total 576 ml 105 ml Output Total 20 ml 30 ml Balance 556 ml 75 ml IV Total 56 ml Tube Feeding 420 ml 105 ml Other 100 ml Output Urine Total 20 ml 30 ml # Bowel Movements 2 HEENT: normocephalic, atraumatic Respiratory/Chest: chest wall non-tender, accessory muscle use, crackles/rales Cardiovascular: normal peripheral pulses, normal rate Abdomen: normal bowel sounds, soft, non tender Extremities: no cyanosis Lymphatic: no neck adenopathy Musculoskeletal: normal muscle bulk Laboratory Tests 03/09/20 06:30: White Blood Count 13.1H, Red Blood Count 4.03L, Hemoglobin 9.4L, Hematocrit 30.2L, Mean Corpuscular Volume 75L, Mean Corpuscular Hemoglobin 23.3L, Mean Corpuscular Hemoglobin Concent 31.1L, Red Cell Distribution Width 15.7H, Platelet Count 374, Mean Platelet Volume 5.4L, Neutrophils (%) (Auto) 68.9, Lymphocytes (%) (Auto) 13.6L, Monocytes (%) (Auto) 12.0H, Eosinophils (%) (Auto ) 4.8H, Basophils (%) (Auto) 0.8, Sodium Level 144, Potassium Level 3.5, Chloride Level 100, Carbon Dioxide Level 32, Anion Gap 12, Blood Urea Nitrogen 65H, Creatinine 8.7H, Estimat Glomerular Filtration Rate 5.6, Glucose Level 135H , Calcium Level 9.3 Current Medications Medications (Trade) Dose Ordered Sig/Josi Route PRN Reason Start Time Stop Time Status Last Admin Dose Admin Acetaminophen (Tylenol) 650 mg Q4H PRN GT fever 03/08/20 23:40 04/07/20 23:39 Albuterol/ Ipratropium (Combivent Respimat) 1 puff Q4H PRN INH Shortness of Breath 03/08/20 23:41 04/07/20 23:40 Atorvastatin Calcium (Lipitor) 10 mg BEDTIME NG 03/09/20 21:00 05/25/20 20:59 Chlorhexidine Gluconate (Jenny-Hex 2%) 1 applic DAILY@2000 TOPIC 03/09/20 20:00 06/06/20 19:59 Epoetin Jose De Jesus (Epoetin Jose De Jesus(ESRD on dialysis)) 10,000 unit SUN-SUN-SUN SUBQ 03/10/20 21:00 06/01/20 20:59 Heparin Sodium (Porcine) (Heparin 5000 units/ml) 5,000 units EVERY 12 HOURS SUBQ 03/09/20 09:00 04/10/20 08:59 Hydralazine HCl (Apresoline) 10 mg Q4H PRN IV Blood pressure over 160 systol 03/08/20 23:41 06/06/20 23:40 Insulin Aspart (NovoLOG) Q6HR SUBQ 03/09/20 00:00 05/20/20 12:29 Labetalol HCl (Normodyne) 20 mg Q1H PRN IV sbp more than 180mmHg 03/08/20 23:42 04/07/20 23:41 Lorazepam (Ativan 2mg/ml 1ml) 2 mg Q2H PRN IV For Anxiety 03/09/20 00:00 03/16/20 00:00 Ondansetron HCl (Zofran) 4 mg Q6H PRN IVP Nausea & Vomiting 03/09/20 00:30 03/26/20 06:29 Pantoprazole (Protonix) 40 mg Q12HR IVP 03/09/20 09:00 03/26/20 08:59 03/09/20 08:30 Pyridoxine HCl (Vitamin B6) 50 mg DAILY NG 03/09/20 09:00 03/26/20 08:59 03/09/20 08:31 Sevelamer Carbonate (Renvela) 800 mg Q6HR NG 03/09/20 00:00 05/25/20 11:59 03/09/20 11:53 Thiamine HCl 100 mg/Dextrose 56 ml @ 112 mls/hr Q24H IVPB 03/09/20 12:00 03/26/20 11:59 Vancomycin HCl (Vanco rx to dose) 1 ea DAILY PRN MISC . 03/09/20 09:00 03/26/20 06:29 Meghana Murillo MD Mar 09, 2020 12:37
--- NOTE | 2020-03-09 13:16 | Infectious Diseases Prog Note ---
Assessment/Plan Assessment/Plan The patient is a 64-year-old female with Confirmed COVID-19. SARS-CoV PCR positive. Pneumonia Mild leukocytosis, increased Fever, recurrent, SP VDRF- sp self extubation 03/05, now on at RA - likely 2/2 COVID, less likely active bacterial superinfection since pt just completed empiric course of antibacterial therapy and sputum cx NG -03/07 CXR: Persistent vascular congestion and suspected interstitial edema.Cardiomegaly with pacer. - 03/01 CXR: Worsening bilateral hazy parenchymal infiltrates, versus edema - 02/20 CXR: Mild pulmonary vascular congestion with subtle bilateral haziness, not significantly changed.Possible tiny pleural effusions. Cardiomegaly. - Bcx ngtd - sp cx normal giu Less likely UTI u/a wbc tnct, nit +, leuk +3; ucx cindy(colonizer) Hx of positive blood culture CONS ,persistent 02/04 BCx: CoNS 01/30 Bc: (1/2)CoNS and Citrobacter 01/27 , 02/01 Bc: CoNS - (outside facility, # of the +ve cultures are not clear) A 2D echo from outside facility did not show any evidence of vegetation as per Carido pt is high risk for CLAY: ( last admission ) Diabetes. CHF. ESRD. Hypertension. Obesity. PLAN: continue to monitor off abx 03/08 SP vancomycin, day # ? ( will Rx for probable SBE) 02/27 SP plaquenil+azithromycin #5 02/25 SP Ertapenem #8 02/24 DC amikacin #6 Monitor CBC. Monitor BMP. Monitor cultures (blood, Sp ) COVID19 isolation u/a w/ reflex, Bcx x2 CBC, CMP am DW RN Subjective Allergies: Coded Allergies: NO KNOWN ALLERGIES (Unverified Allergy, Unknown, 10/15/15) Subjective afebrile >72hrs at RA mild leukocytosis increased Objective Vital Signs Last 24 Hour Vital Signs Date Time Temp Pulse Resp B/P (MAP) Pulse Ox O2 Delivery O2 Flow Rate FiO2 03/09/20 12:00 97.4 77 26 125/70 (88) 100 03/09/20 09:53 94 Room Air 21 03/09/20 09:00 81 03/09/20 08:00 97.3 81 26 126/66 (86) 94 03/09/20 08:00 Room Air 03/09/20 04:00 97.6 72 152/69 (96) 99 03/09/20 04:00 75 03/09/20 04:00 Room Air 03/09/20 00:00 Room Air 03/09/20 00:00 75 03/08/20 22:00 77 36 153/82 (105) 93 03/08/20 21:14 95 Room Air 21 03/08/20 21:00 81 32 141/70 (93) 90 03/08/20 20:00 98.2 78 26 99/83 (88) 93 03/08/20 20:00 Room Air 03/08/20 20:00 81 03/08/20 19:00 74 19 162/59 (93) 99 03/08/20 18:00 76 26 141/83 (102) 98 03/08/20 17:42 98.7 75 31 166/70 (102) 98 03/08/20 17:00 74 18 94 03/08/20 16:00 72 28 139/99 (112) 99 03/08/20 16:00 72 03/08/20 16:00 Room Air 03/08/20 15:30 77 29 129/74 (92) 92 03/08/20 15:20 76 22 146/46 (79) 95 03/08/20 15:15 74 11 172/86 (114) 94 03/08/20 14:00 75 158/72 (100) 96 Height (Feet): 5 Height (Inches): 7.00 Weight (Pounds): 239 Objective HEENT: atraumatic Neck: supple Respiratory/Chest: no respiratory distress Cardiovascular/Chest: regular rhythm Abdomen: soft Laboratory Tests Test 03/09/20 06:30 White Blood Count 13.1 K/UL (4.8-10.8) H Red Blood Count 4.03 M/UL (4.20-5.40) L Hemoglobin 9.4 G/DL (12.0-16.0) L Hematocrit 30.2 % (37.0-47.0) L Mean Corpuscular Volume 75 FL (80-99) L Mean Corpuscular Hemoglobin 23.3 PG (27.0-31.0) L Mean Corpuscular Hemoglobin Concent 31.1 G/DL (32.0-36.0) L Red Cell Distribution Width 15.7 % (11.6-14.8) H Platelet Count 374 K/UL (150-450) Mean Platelet Volume 5.4 FL (6.5-10.1) L Neutrophils (%) (Auto) 68.9 % (45.0-75.0) Lymphocytes (%) (Auto) 13.6 % (20.0-45.0) L Monocytes (%) (Auto) 12.0 % (1.0-10.0) H Eosinophils (%) (Auto) 4.8 % (0.0-3.0) H Basophils (%) (Auto) 0.8 % (0.0-2.0) Sodium Level 144 MMOL/L (136-145) Potassium Level 3.5 MMOL/L (3.5-5.1) Chloride Level 100 MMOL/L (98-107) Carbon Dioxide Level 32 MMOL/L (21-32) Anion Gap 12 mmol/L (5-15) Blood Urea Nitrogen 65 mg/dL (7-18) H Creatinine 8.7 MG/DL (0.55-1.30) H Estimat Glomerular Filtration Rate 5.6 mL/min (>60) Glucose Level 135 MG/DL (74-106) H Calcium Level 9.3 MG/DL (8.5-10.1) Current Medications Medications (Trade) Dose Ordered Sig/Josi Route PRN Reason Start Time Stop Time Status Last Admin Dose Admin Acetaminophen (Tylenol) 650 mg Q4H PRN GT fever 03/08/20 23:40 04/07/20 23:39 Albuterol/ Ipratropium (Combivent Respimat) 1 puff Q4H PRN INH Shortness of Breath 03/08/20 23:41 04/07/20 23:40 Atorvastatin Calcium (Lipitor) 10 mg BEDTIME NG 03/09/20 21:00 05/25/20 20:59 Chlorhexidine Gluconate (Jenny-Hex 2%) 1 applic DAILY@2000 TOPIC 03/09/20 20:00 06/06/20 19:59 Epoetin Jose De Jesus (Epoetin Jose De Jesus(ESRD on dialysis)) 10,000 unit SUN-SUN-SUN SUBQ 03/10/20 21:00 06/01/20 20:59 Heparin Sodium (Porcine) (Heparin 5000 units/ml) 5,000 units EVERY 12 HOURS SUBQ 03/09/20 09:00 04/10/20 08:59 Hydralazine HCl (Apresoline) 10 mg Q4H PRN IV Blood pressure over 160 systol 03/08/20 23:41 06/06/20 23:40 Insulin Aspart (NovoLOG) Q6HR SUBQ 03/09/20 00:00 05/20/20 12:29 Labetalol HCl (Normodyne) 20 mg Q1H PRN IV sbp more than 180mmHg 03/08/20 23:42 04/07/20 23:41 Lorazepam (Ativan 2mg/ml 1ml) 2 mg Q2H PRN IV For Anxiety 03/09/20 00:00 03/16/20 00:00 Ondansetron HCl (Zofran) 4 mg Q6H PRN IVP Nausea & Vomiting 03/09/20 00:30 03/26/20 06:29 Pantoprazole (Protonix) 40 mg Q12HR IVP 03/09/20 09:00 03/26/20 08:59 03/09/20 08:30 Pyridoxine HCl (Vitamin B6) 50 mg DAILY NG 03/09/20 09:00 03/26/20 08:59 03/09/20 08:31 Sevelamer Carbonate (Renvela) 800 mg Q6HR NG 03/09/20 00:00 05/25/20 11:59 03/09/20 11:53 Thiamine HCl 100 mg/Dextrose 56 ml @ 112 mls/hr Q24H IVPB 03/09/20 12:00 03/26/20 11:59 Vancomycin HCl (Vanco rx to dose) 1 ea DAILY PRN MISC . 03/09/20 09:00 03/26/20 06:29 Susi Vanegas M.D. Mar 09, 2020 13:16
[2020-03-09 16:00] VITALS: BP 151/76
--- NOTE | 2020-03-09 17:43 | NUR ---
NURSE NOTES: WOUNDCARE PHOTO UPLOADED
--- NOTE | 2020-03-09 17:49 | NUR ---
NURSE NOTES: oK PER DR BARAKAT TO DOWNGRADE TO MED SURG. CHIEF PORT DIRECTOR DC/
--- NOTE | 2020-03-09 18:53 | Nephrology Progress Note ---
Assessment/Plan Problem List: (1) Acute respiratory failure (2) ESRD (end stage renal disease) on dialysis (3) UTI (urinary tract infection) (4) Patient is Christian (5) Pacemaker (6) Diabetes (7) Obesity (BMI 30-39.9) Assessment ARDS (adult respiratory distress syndrome) Fever Sepsis UTI (urinary tract infection) Respiratory failure, intubated on ventilator Thrombocytopenia Lymphopenia End stage renal disease on dialysis. Has a right upper arm dialysis fistula as Acces . Getting dialysis Sunday. morbid obesity Anemia / Jehova's witness CAD previous stent HTN- hypertensive urgency upon arrival to [facility]. s/p AVG DM 2 bilateral eye blindness h/o CHF Pacemaker Plan Patient extubated March 04, and remains extubated Patient positive for Covid 19 Per ID and pulmonary, Last dialyzed March 06 next March 09 EPO, thiamin and b6 Phos binders NGT feeding per consultants Remains full code at this time Subjective ROS Limited/Unobtainable: No Constitutional: Reports: malaise, weakness Objective Objective Last 24 Hour Vital Signs Date Time Temp Pulse Resp B/P (MAP) Pulse Ox O2 Delivery O2 Flow Rate FiO2 03/09/20 16:00 97.3 78 28 151/76 (101) 98 03/09/20 16:00 74 03/09/20 12:00 76 03/09/20 12:00 97.4 77 26 125/70 (88) 100 03/09/20 09:53 94 Room Air 21 03/09/20 09:00 81 03/09/20 08:00 97.3 81 26 126/66 (86) 94 03/09/20 08:00 Room Air 03/09/20 04:00 97.6 72 152/69 (96) 99 03/09/20 04:00 75 03/09/20 04:00 Room Air 03/09/20 00:00 Room Air 03/09/20 00:00 75 03/08/20 22:00 77 36 153/82 (105) 93 03/08/20 21:14 95 Room Air 21 03/08/20 21:00 81 32 141/70 (93) 90 03/08/20 20:00 98.2 78 26 99/83 (88) 93 03/08/20 20:00 Room Air 03/08/20 20:00 81 03/08/20 19:00 74 19 162/59 (93) 99 Intake and Output 03/08/20 03/09/20 19:00 07:00 Intake Total 576 ml 105 ml Output Total 20 ml 30 ml Balance 556 ml 75 ml IV Total 56 ml Tube Feeding 420 ml 105 ml Other 100 ml Output Urine Total 20 ml 30 ml # Bowel Movements 2 Current Medications Medications (Trade) Dose Ordered Sig/Josi Route PRN Reason Start Time Stop Time Status Last Admin Dose Admin Acetaminophen (Tylenol) 650 mg Q4H PRN GT fever 03/08/20 23:40 04/07/20 23:39 Albuterol/ Ipratropium (Combivent Respimat) 1 puff Q4H PRN INH Shortness of Breath 03/08/20 23:41 04/07/20 23:40 Atorvastatin Calcium (Lipitor) 10 mg BEDTIME NG 03/09/20 21:00 05/25/20 20:59 Chlorhexidine Gluconate (Jenny-Hex 2%) 1 applic DAILY@1999 TOPIC 03/09/20 20:00 06/06/20 19:59 Epoetin Jose De Jesus (Epoetin Jose De Jesus(ESRD on dialysis)) 10,000 unit MON-WED-SUN SUBQ 03/10/20 21:00 06/01/20 20:59 Heparin Sodium (Porcine) (Heparin 5000 units/ml) 5,000 units EVERY 12 HOURS SUBQ 03/09/20 09:00 04/10/20 08:59 Hydralazine HCl (Apresoline) 10 mg Q4H PRN IV Blood pressure over 160 systol 03/08/20 23:41 06/06/20 23:40 Insulin Aspart (NovoLOG) Q6HR SUBQ 03/09/20 00:00 05/20/20 12:29 03/09/20 13:12 Labetalol HCl (Normodyne) 20 mg Q1H PRN IV sbp more than 180mmHg 03/08/20 23:42 04/07/20 23:41 Lorazepam (Ativan 2mg/ml 1ml) 2 mg Q2H PRN IV For Anxiety 03/09/20 00:00 03/16/20 00:00 Ondansetron HCl (Zofran) 4 mg Q6H PRN IVP Nausea & Vomiting 03/09/20 00:30 03/26/20 06:29 Pantoprazole (Protonix) 40 mg Q12HR IVP 03/09/20 09:00 03/26/20 08:59 03/09/20 08:30 Pyridoxine HCl (Vitamin B6) 50 mg DAILY NG 03/09/20 09:00 03/26/20 08:59 03/09/20 08:31 Sevelamer Carbonate (Renvela) 800 mg Q6HR NG 03/09/20 00:00 05/25/20 11:59 03/09/20 11:53 Thiamine HCl 100 mg/Dextrose 56 ml @ 112 mls/hr Q24H IVPB 03/09/20 12:00 03/26/20 11:59 Laboratory Tests 03/09/20 06:30: White Blood Count 13.1H, Red Blood Count 4.03L, Hemoglobin 9.4L, Hematocrit 30.2L, Mean Corpuscular Volume 75L, Mean Corpuscular Hemoglobin 23.3L, Mean Corpuscular Hemoglobin Concent 31.1L, Red Cell Distribution Width 15.7H, Platelet Count 374, Mean Platelet Volume 5.4L, Neutrophils (%) (Auto) 68.9, Lymphocytes (%) (Auto) 13.6L, Monocytes (%) (Auto) 12.0H, Eosinophils (%) (Auto ) 4.8H, Basophils (%) (Auto) 0.8, Sodium Level 144, Potassium Level 3.5, Chloride Level 100, Carbon Dioxide Level 32, Anion Gap 12, Blood Urea Nitrogen 65H, Creatinine 8.7H, Estimat Glomerular Filtration Rate 5.6, Glucose Level 135H , Calcium Level 9.3 Height (Feet): 5 Height (Inches): 7.00 Weight (Pounds): 239 General Appearance: lethargic, mild distress EENT: other - NG tube in place Cardiovascular: normal rate Respiratory/Chest: decreased breath sounds Abdomen: distended Bryan Hunter MD Mar 09, 2020 18:53
--- NOTE | 2020-03-09 19:26 | NUR ---
HAND-OFF: Report given to Philip SLOAN. Pt in semi flower, no distress noted.
[2020-03-09 20:00] VITALS: BP 182/84
--- NOTE | 2020-03-09 20:00 | NUR ---
NURSE NOTES: Patient received in bed, in room air, appears restless, on bilateral soft wrist restraints. Pulses present, skin intact,no swelling noted. Patient was able to remove sotelo catheter anchor, anchor replaced on right thigh. Patient repositioned, NGT intact and secured, tolerating feeding. HOB elevated 35deg. aspiration and fall precautions. Awaiting for HD. Continue to close monitoring.
[2020-03-09] MEDS: Dyna-Hex 2% Top Sol 2oz TOPIC SCH (20:13)
[2020-03-09 20:49] LABS: APPEARANCE,URINE CLOUDY; BILIRUBIN, URINE NEGATIVE (NEGATIVE); COLOR,URINE BROWN; GLUCOSE, URINE (UA) 1+ (NEGATIVE); KETONES,URINE 1+ (NEGATIVE); LEUKOCYTE ESTERASE ,URINE 3+ (NEGATIVE); NITRITE,URINE NEGATIVE (NEGATIVE); PH,URINE 8 (4.5-8.0); PROTEIN,URINE 4+ (NEGATIVE); UROBILINOGEN,URINE NORMAL MG/DL (0.0-1.0)
[2020-03-09] MEDS: LORazepam Inj 2mg/ml 1ml IV PRN (21:51)
--- NOTE | 2020-03-09 22:08 | NUR ---
NURSE NOTES: HD nurse notifed RN that patient was able to remove her sotelo catheter despite on wrist restraints. Patient's legs were restless and was able to remove catheter from the anchor. No acute bleeding noted, catheter balloon inflated and intact. Left message to Dr. Henning and Dr. Murillo if patient still needs sotelo catheter to be reinsert. Will continue to monitor. Addendum: 03/09/20 at 2209 by ANA LAURA TORRES RN RN Patient was medicated with ativan IV prn for anxiety and restlessness, will continue to monitor. Addendum: 03/09/20 at 2236 by AN ALAURA TORRES RN RN Received order from inocente Juarez not to reinsert sotelo catheter at this time.
[2020-03-10] VITALS: BP 168/82
--- NOTE | 2020-03-10 | NUR ---
NURSE NOTES: Patient finished HD with 3L out, current BP was 168/92. Patient remained restless. Repositioned for comfort and will re-check BP at a later time. Will monitor.
[2020-03-10 04:00] VITALS: BP 128/74
[2020-03-10] MEDS: Renvela 800mg Pkt NG SCH ×3 (05:06→17:19)
[2020-03-10] MEDS: NovoLOG Insulin Flexpen SUBQ SCH ×3 (05:15→17:27)
[2020-03-10] MEDS: LORazepam Inj 2mg/ml 1ml IV PRN ×4 (05:19→21:06)
--- NOTE | 2020-03-10 05:31 | NUR ---
NURSE NOTES: Patient became restless again, bringing her legs off the bed, repositioned multiple times, ineffective, patient keeps throwing pillows to the floor. Medicated with ativan prn. HOB elevated 45 degrees. will continue to monitor.
[2020-03-10 06:33] LABS: HEMATOCRIT 30.2 % (37.0-47.0); HEMOGLOBIN 9.5 G/DL (12.0-16.0); MEAN CORPUSCULAR VOLUME 76 FL (80-99); PLATELET COUNT 321 K/UL (150-450); RED BLOOD COUNT 3.98 M/UL (4.20-5.40); WHITE BLOOD COUNT 12.7 K/UL (4.8-10.8)
[2020-03-10 07:06] LABS: ALANINE AMINOTRANSFERASE 29 U/L (12-78); ALBUMIN 3.2 G/DL (3.4-5.0); ALBUMIN/GLOBULIN RATIO 0.6 (1.0-2.7); ALKALINE PHOSPHATASE 243 U/L (46-116); ANION GAP 12 mmol/L (5-15); ASPARTATE AMINO TRANSFERASE 27 U/L (15-37); BILIRUBIN,TOTAL 0.9 MG/DL (0.2-1.0); BLOOD UREA NITROGEN 41 mg/dL (7-18); CALCIUM 9.7 MG/DL (8.5-10.1); CARBON DIOXIDE 33 MMOL/L (21-32); CHLORIDE 101 MMOL/L (98-107); CREATININE 6.3 MG/DL (0.55-1.30); POTASSIUM 3.5 MMOL/L (3.5-5.1); SODIUM 146 MMOL/L (136-145)
[2020-03-10 07:18] LABS: PHOSPHORUS 2.9 MG/DL (2.5-4.9)
--- NOTE | 2020-03-10 07:22 | NUR ---
HAND-OFF: Report given to Yelitza SLOAN. Endorsed patient as high fall risk and high aspiration precautions.
[2020-03-10 08:00] VITALS: BP 147/90
[2020-03-10] MEDS: Heparin 5000 units/ml inj SUBQ SCH ×2 (08:47→21:00)
[2020-03-10] MEDS: Pantoprazole Inj IVP SCH ×2 (08:48→21:06)
[2020-03-10] MEDS: Pyridoxine 50mg tab NG SCH (08:49)
--- NOTE | 2020-03-10 08:50 | NUR ---
ATIVAN DISCREPANCY RESOLVED IN [facility], INFORMED PHARMACY [facility] NOT ALLOWING RN TO COUNT MEDICATION WHEN GETTING MEDS OUT OF [facility]. CHARGE NURSE MADE AWARE. NATHALIA CUEVAS WITNESS ATIVAN PRN WAS ADMINISTERED DURING DAY SHIFT.
--- NOTE | 2020-03-10 08:55 | General Progress Note ---
Assessment/Plan Problem List: (1) Obesity (BMI 30-39.9) ICD Codes: E66.9 - Obesity, unspecified SNOMED: 203871545, 116241163 (2) COVID-19 virus infection ICD Codes: U07.1 - COVID-19 SNOMED: 957867923 (3) Acute respiratory failure ICD Codes: J96.00 - Acute respiratory failure, unspecified whether with hypoxia or hypercapnia SNOMED: 12152319 (4) Blindness of both eyes ICD Codes: H54.0 - Blindness SNOMED: 442259294 (5) ESRD (end stage renal disease) on dialysis ICD Codes: N18.6 - End stage renal disease; Z99.2 - Dependence on renal dialysis SNOMED: 047673061 (6) Anemia ICD Codes: D64.9 - Anemia, unspecified SNOMED: 880040265 (7) Diabetes ICD Codes: E11.9 - Type 2 diabetes mellitus without complications SNOMED: 21524043 (8) AMS (altered mental status) ICD Codes: R41.82 - Altered mental status, unspecified SNOMED: 963784662 Status: unchanged Assessment/Plan: vent abx dialysis cbc bmp am ltach eval Subjective Constitutional: Reports: weakness Allergies: Coded Allergies: NO KNOWN ALLERGIES (Unverified Allergy, Unknown, 10/15/15) All Systems: reviewed and negative except above Subjective ng lethargic sleepy Objective Last 24 Hour Vital Signs Date Time Temp Pulse Resp B/P (MAP) Pulse Ox O2 Delivery O2 Flow Rate FiO2 03/10/20 04:00 97.7 78 21 128/74 (92) 100 03/10/20 00:00 97.0 92 18 168/82 (110) 97 03/09/20 22:40 Room Air 03/09/20 21:00 Room Air 03/09/20 20:50 80 20 96 Room Air 21 03/09/20 20:50 96 Room Air 21 03/09/20 20:00 97.3 74 19 182/84 (116) 100 03/09/20 16:00 97.3 78 28 151/76 (101) 98 03/09/20 16:00 74 03/09/20 12:00 76 03/09/20 12:00 97.4 77 26 125/70 (88) 100 4/14/20 09:53 94 Room Air 21 03/09/20 09:00 81 Intake and Output 03/09/20 03/10/20 19:00 07:00 Intake Total 685 ml Output Total 30 ml 3080 ml Balance -30 ml -2395 ml Intake Free Water 300 ml Tube Feeding 385 ml Output Urine Total 30 ml 80 ml Hemodialysis UF 3000 ml # Bowel Movements 1 Laboratory Tests 03/09/20 20:15: Urine Color Brown, Urine Appearance Cloudy, Urine pH 8, Urine Specific [place] 1.010, Urine Protein 4+H, Urine Glucose (UA) 1+H, Urine Ketones 1+H, Urine Blood 5+H, Urine Nitrite Negative, Urine Bilirubin Negative, Urine Urobilinogen Normal, Urine Leukocyte Esterase 3+H, Urine RBC TntcH, Urine WBC 40-60H, Urine Squamous Epithelial Cells ModerateH, Urine Bacteria ManyH 03/10/20 04:45: White Blood Count 12.7H, Red Blood Count 3.98L, Hemoglobin 9.5L, Hematocrit 30.2L, Mean Corpuscular Volume 76L, Mean Corpuscular Hemoglobin 24.0L, Mean Corpuscular Hemoglobin Concent 31.7L, Red Cell Distribution Width 16.0H, Platelet Count 321, Mean Platelet Volume 5.8L, Neutrophils (%) (Auto) , Lymphocytes (%) (Auto) , Monocytes (%) (Auto) , Eosinophils (%) (Auto) , Basophils (%) (Auto) , Neutrophils % (Manual) [Pending], Lymphocytes % (Manual) [Pending], Platelet Estimate [Pending], Platelet Morphology [Pending], Sodium Level 146H, Potassium Level 3.5, Chloride Level 101, Carbon Dioxide Level 33H, Anion Gap 12, Blood Urea Nitrogen 41H, Creatinine 6.3H, Estimat Glomerular Filtration Rate 8.2, Glucose Level 167H, Calcium Level 9.7, Phosphorus Level 2.9 , Magnesium Level 2.9H, Total Bilirubin 0.9, Gamma Glutamyl Transpeptidase 239H , Aspartate Amino Transf (AST/SGOT) 27, Alanine Aminotransferase (ALT/SGPT) 29, Alkaline Phosphatase 243H, Lactate Dehydrogenase 335H, Total Protein 8.3H, Albumin 3.2L, Globulin 5.1, Albumin/Globulin Ratio 0.6L Height (Feet): 5 Height (Inches): 7.00 Weight (Pounds): 223 General Appearance: lethargic EENT: normal ENT inspection Neck: normal alignment Cardiovascular: normal rate, regular rhythm Extremities: normal inspection Skin: normal pigmentation Rodreick Henning DO Mar 10, 2020 08:55
--- NOTE | 2020-03-10 09:32 | NUR ---
CASE MANAGEMENT: REVIEW 03/10/20 SI: (((COVID-19 VIRUS DETECTED))) ACUTE RESP FAILURE . ESRD on HD . UTI 97.7 78 21 128/74 100% ON RA WBC 12.7 H/H 9.5/30.2 NA+146 CO2 33 BUN 41 CREAT 6.3 BG 167 MG 2.9 ALKP 335 IS:IV THIAMINE Q24HR VITAMIN B6 GT QD RENVELA NG Q6HR EPOETIN SUBQ MWF IV PROTONIX BID LIPITOR NG QHS HEPARIN SQ BID NOVOLOG SQ Q6HR HYDRALAZINE Q4HR/PRN GT FEEDING \: 2E TELE UNIT DCP: [facility]: CHEST-RAY ()-slight improvement of bilateral infiltrates versus edema LTAC EVAL -DECLINED (PATIENT NEEDS NEGATIVE COVID-19) DOWNGRADE ORDER FOR MED SURG STATUS
--- NOTE | 2020-03-10 11:30 | NUR ---
SPOKE WITH ID DOCTOR (SYDNEY) AND MADE AWARE PT IS POSITIVE FOR GRAM COCCI (3 BOTTLES PER LAB). OBTAINED ORDER FOR VANCO PER PHARMACY AND TO DISCONTINUE PICC LINE ONCE IV IS SUCCESFULLY INSERTED (CARRIED OUT). Addendum: 03/10/20 at 1413 by Yelitza Gregorio RN PT IS A HARD STICK. STAFF UNABLE TO INSERT ULTRA-SOUND GUIDED PERIPHERAL IV. CHARGE NURSE MADE AWARE. PER CHARGE NURSE, SHE SPOKE WITH MD CUEVAS WHO INSTRUCTED STAFF TO KEEP CURRENT DOUBLE LUMEN PICC LINE (INSERTED AT [facility] – [place], [place]). BLOOD CULTURE X2 SENT TO LAB. VANCO STARTED PER PHARMACY PER MD GRIMES ORDER. CHARGE NURSE UPDATED ON PT STATUS.
--- NOTE | 2020-03-10 11:41 | NUR ---
SPOKE WITH PRIMARY CONTACT AND UPDATED ON PLAN OF CARE. VERBALIZED UNDERSTANDING.
--- NOTE | 2020-03-10 11:56 | Nephrology Progress Note ---
Assessment/Plan Problem List: (1) Acute respiratory failure (2) ESRD (end stage renal disease) on dialysis (3) UTI (urinary tract infection) (4) Patient is Zoroastrianism (5) Pacemaker (6) Diabetes (7) Obesity (BMI 30-39.9) Assessment ARDS (adult respiratory distress syndrome) Fever Sepsis UTI (urinary tract infection) Respiratory failure, intubated on ventilator Thrombocytopenia Lymphopenia End stage renal disease on dialysis. Has a right upper arm dialysis fistula as Acces . Getting dialysis Sunday. morbid obesity Anemia / Jehova's witness CAD previous stent HTN- hypertensive urgency upon arrival to [facility]. s/p AVG DM 2 bilateral eye blindness h/o CHF Pacemaker Plan Patient extubated March 04, and remains extubated Patient positive for Covid 19 Per ID and pulmonary, Last dialyzed March 06 next March 09 next 03/11 EPO, thiamin and b6 Phos binders NGT feeding per consultants Remains full code at this time Subjective ROS Limited/Unobtainable: No Constitutional: Reports: malaise, weakness Objective Objective Last 24 Hour Vital Signs Date Time Temp Pulse Resp B/P (MAP) Pulse Ox O2 Delivery O2 Flow Rate FiO2 03/10/20 08:00 98.0 77 20 147/90 (109) 96 03/10/20 08:00 Room Air 03/10/20 04:00 97.7 78 21 128/74 (92) 100 03/10/20 00:00 97.0 92 18 168/82 (110) 97 03/09/20 22:40 Room Air 03/09/20 21:00 Room Air 03/09/20 20:50 80 20 96 Room Air 21 03/09/20 20:50 96 Room Air 21 03/09/20 20:00 97.3 74 19 182/84 (116) 100 03/09/20 16:00 97.3 78 28 151/76 (101) 98 03/09/20 16:00 74 03/09/20 12:00 76 03/09/20 12:00 97.4 77 26 125/70 (88) 100 Intake and Output 03/09/20 03/10/20 19:00 07:00 Intake Total 685 ml Output Total 30 ml 3080 ml Balance -30 ml -2395 ml Intake Free Water 300 ml Tube Feeding 385 ml Output Urine Total 30 ml 80 ml Hemodialysis UF 3000 ml # Bowel Movements 1 Laboratory Tests 03/09/20 20:15: Urine Color Brown, Urine Appearance Cloudy, Urine pH 8, Urine Specific [place] 1.010, Urine Protein 4+H, Urine Glucose (UA) 1+H, Urine Ketones 1+H, Urine Blood 5+H, Urine Nitrite Negative, Urine Bilirubin Negative, Urine Urobilinogen Normal, Urine Leukocyte Esterase 3+H, Urine RBC TntcH, Urine WBC 40-60H, Urine Squamous Epithelial Cells ModerateH, Urine Bacteria ManyH 03/10/20 04:45: White Blood Count 12.7H, Red Blood Count 3.98L, Hemoglobin 9.5L, Hematocrit 30.2L, Mean Corpuscular Volume 76L, Mean Corpuscular Hemoglobin 24.0L, Mean Corpuscular Hemoglobin Concent 31.7L, Red Cell Distribution Width 16.0H, Platelet Count 321, Mean Platelet Volume 5.8L, Neutrophils (%) (Auto) , Lymphocytes (%) (Auto) , Monocytes (%) (Auto) , Eosinophils (%) (Auto) , Basophils (%) (Auto) , Differential Total Cells Counted 100, Neutrophils % ( Manual) 74, Lymphocytes % (Manual) 15L, Monocytes % (Manual) 8, Eosinophils % ( Manual) 3, Basophils % (Manual) 0, Band Neutrophils 0, Nucleated Red Blood Cells 1, Platelet Estimate Adequate, Platelet Morphology Normal, Hypochromasia 2 +, Anisocytosis 1+, Microcytosis 1+, Sodium Level 146H, Potassium Level 3.5, Chloride Level 101, Carbon Dioxide Level 33H, Anion Gap 12, Blood Urea Nitrogen 41H, Creatinine 6.3H, Estimat Glomerular Filtration Rate 8.2, Glucose Level 167H , Calcium Level 9.7, Phosphorus Level 2.9, Magnesium Level 2.9H, Total Bilirubin 0.9, Gamma Glutamyl Transpeptidase 239H, Aspartate Amino Transf (AST/ SGOT) 27, Alanine Aminotransferase (ALT/SGPT) 29, Alkaline Phosphatase 243H, Lactate Dehydrogenase 335H, Total Protein 8.3H, Albumin 3.2L, Globulin 5.1, Albumin/Globulin Ratio 0.6L Height (Feet): 5 Height (Inches): 7.00 Weight (Pounds): 223 General Appearance: no apparent distress Cardiovascular: normal rate Respiratory/Chest: decreased breath sounds Abdomen: soft Fouladian,Bryan MD Mar 10, 2020 11:56
[2020-03-10 12:00] VITALS: BP 158/90
--- NOTE | 2020-03-10 12:42 | Pulmonology Progress Note ---
Assessment/Plan Problems: (1) Sepsis (2) Acute respiratory failure (3) Accelerated hypertension (4) COVID-19 virus infection (5) ESRD (end stage renal disease) on dialysis (6) Morbid obesity (7) Patient is Zoroastrian (8) Diabetes Assessment/Plan improving still has NG tube on isolation afebrile in the last few days f/u cultures respiratory treatment Subjective ROS Limited/Unobtainable: No Constitutional: Reports: no symptoms HEENT: Repors: no symptoms Respiratory: Reports: no symptoms Allergies: Coded Allergies: NO KNOWN ALLERGIES (Unverified Allergy, Unknown, 10/15/15) Objective Last 24 Hour Vital Signs Date Time Temp Pulse Resp B/P (MAP) Pulse Ox O2 Delivery O2 Flow Rate FiO2 03/10/20 08:00 98.0 77 20 147/90 (109) 96 03/10/20 08:00 Room Air 03/10/20 04:00 97.7 78 21 128/74 (92) 100 03/10/20 00:00 97.0 92 18 168/82 (110) 97 03/09/20 22:40 Room Air 03/09/20 21:00 Room Air 03/09/20 20:50 80 20 96 Room Air 21 03/09/20 20:50 96 Room Air 21 03/09/20 20:00 97.3 74 19 182/84 (116) 100 03/09/20 16:00 97.3 78 28 151/76 (101) 98 03/09/20 16:00 74 Intake and Output 03/09/20 03/10/20 19:00 07:00 Intake Total 685 ml Output Total 30 ml 3080 ml Balance -30 ml -2395 ml Intake Free Water 300 ml Tube Feeding 385 ml Output Urine Total 30 ml 80 ml Hemodialysis UF 3000 ml # Bowel Movements 1 Objective has ng tube,confused General Appearance: WD/WN HEENT: normocephalic, atraumatic Respiratory/Chest: chest wall non-tender Breasts: no masses Cardiovascular: normal rate Abdomen: normal bowel sounds Genitourinary: normal external genitalia Extremities: no cyanosis Skin: no rash Microbiology Date/Time Source Procedure Growth Status 03/09/20 15:30 Blood Blood Culture - Preliminary Resulted Laboratory Tests 03/09/20 20:15: Urine Color Brown, Urine Appearance Cloudy, Urine pH 8, Urine Specific [place] 1.010, Urine Protein 4+H, Urine Glucose (UA) 1+H, Urine Ketones 1+H, Urine Blood 5+H, Urine Nitrite Negative, Urine Bilirubin Negative, Urine Urobilinogen Normal, Urine Leukocyte Esterase 3+H, Urine RBC TntcH, Urine WBC 40-60H, Urine Squamous Epithelial Cells ModerateH, Urine Bacteria ManyH 03/10/20 04:45: White Blood Count 12.7H, Red Blood Count 3.98L, Hemoglobin 9.5L, Hematocrit 30.2L, Mean Corpuscular Volume 76L, Mean Corpuscular Hemoglobin 24.0L, Mean Corpuscular Hemoglobin Concent 31.7L, Red Cell Distribution Width 16.0H, Platelet Count 321, Mean Platelet Volume 5.8L, Neutrophils (%) (Auto) , Lymphocytes (%) (Auto) , Monocytes (%) (Auto) , Eosinophils (%) (Auto) , Basophils (%) (Auto) , Differential Total Cells Counted 100, Neutrophils % ( Manual) 74, Lymphocytes % (Manual) 15L, Monocytes % (Manual) 8, Eosinophils % ( Manual) 3, Basophils % (Manual) 0, Band Neutrophils 0, Nucleated Red Blood Cells 1, Platelet Estimate Adequate, Platelet Morphology Normal, Hypochromasia 2 +, Anisocytosis 1+, Microcytosis 1+, Sodium Level 146H, Potassium Level 3.5, Chloride Level 101, Carbon Dioxide Level 33H, Anion Gap 12, Blood Urea Nitrogen 41H, Creatinine 6.3H, Estimat Glomerular Filtration Rate 8.2, Glucose Level 167H , Calcium Level 9.7, Phosphorus Level 2.9, Magnesium Level 2.9H, Total Bilirubin 0.9, Gamma Glutamyl Transpeptidase 239H, Aspartate Amino Transf (AST/ SGOT) 27, Alanine Aminotransferase (ALT/SGPT) 29, Alkaline Phosphatase 243H, Lactate Dehydrogenase 335H, Total Protein 8.3H, Albumin 3.2L, Globulin 5.1, Albumin/Globulin Ratio 0.6L Current Medications Medications (Trade) Dose Ordered Sig/Josi Route PRN Reason Start Time Stop Time Status Last Admin Dose Admin Acetaminophen (Tylenol) 650 mg Q4H PRN GT fever 03/08/20 23:40 04/07/20 23:39 Albuterol/ Ipratropium (Combivent Respimat) 1 puff Q4H PRN INH Shortness of Breath 03/08/20 23:41 04/07/20 23:40 Atorvastatin Calcium (Lipitor) 10 mg BEDTIME NG 03/09/20 21:00 05/25/20 20:59 03/09/20 20:14 Chlorhexidine Gluconate (Jenny-Hex 2%) 1 applic DAILY@2000 TOPIC 03/09/20 20:00 06/06/20 19:59 03/09/20 20:13 Epoetin Jose De Jesus (Epoetin Jose De Jesus(ESRD on dialysis)) 10,000 unit SUN-SUN-SUN SUBQ 03/10/20 21:00 06/01/20 20:59 Heparin Sodium (Porcine) (Heparin 5000 units/ml) 5,000 units EVERY 12 HOURS SUBQ 03/09/20 09:00 04/10/20 08:59 03/10/20 08:47 Hydralazine HCl (Apresoline) 10 mg Q4H PRN IV Blood pressure over 160 systol 03/08/20 23:41 06/06/20 23:40 Insulin Aspart (NovoLOG) Q6HR SUBQ 03/09/20 00:00 05/20/20 12:29 03/10/20 05:15 Labetalol HCl (Normodyne) 20 mg Q1H PRN IV sbp more than 180mmHg 03/08/20 23:42 04/07/20 23:41 Lorazepam (Ativan 2mg/ml 1ml) 2 mg Q2H PRN IV For Anxiety 03/09/20 00:00 03/16/20 00:00 03/10/20 08:50 Ondansetron HCl (Zofran) 4 mg Q6H PRN IVP Nausea & Vomiting 03/09/20 00:30 03/26/20 06:29 Pantoprazole (Protonix) 40 mg Q12HR IVP 03/09/20 09:00 03/26/20 08:59 03/10/20 08:48 Pyridoxine HCl (Vitamin B6) 50 mg DAILY NG 03/09/20 09:00 03/26/20 08:59 03/10/20 08:49 Sevelamer Carbonate (Renvela) 800 mg Q6HR NG 03/09/20 00:00 05/25/20 11:59 03/10/20 05:06 Thiamine HCl 100 mg/Dextrose 56 ml @ 112 mls/hr Q24H IVPB 03/09/20 12:00 03/26/20 11:59 Vancomycin HCl (Vanco rx to dose) 1 ea DAILY PRN MISC vanco per Rx 03/10/20 13:00 04/09/20 12:59 Vancomycin HCl 1 gm/Dextrose 275 ml @ 183.708 mls/hr ONCE ONCE IVPB 03/10/20 14:00 03/10/20 15:29 Meghana Murillo MD Mar 10, 2020 12:42
[2020-03-10] MEDS: Thiamine HCl 100 MG in D5W 55 ML IVPB SCH (12:48)
--- NOTE | 2020-03-10 13:43 | Infectious Diseases Prog Note ---
Assessment/Plan Assessment/Plan The patient is a 64-year-old female with Confirmed COVID-19. SARS-CoV PCR positive. Pneumonia Mild leukocytosis, increased -03/09 u/a wbc 40-60, nit neg, leuk +3; ucx p Fever, recurrent, SP VDRF- sp self extubation 03/05, now on at [facility] - likely 2/2 COVID, less likely active bacterial superinfection since pt just completed empiric course of antibacterial therapy and sputum cx NG -03/07 CXR: Persistent vascular congestion and suspected interstitial edema.Cardiomegaly with pacer. - 03/01 CXR: Worsening bilateral hazy parenchymal infiltrates, versus edema - 02/20 CXR: Mild pulmonary vascular congestion with subtle bilateral haziness, not significantly changed.Possible tiny pleural effusions. Cardiomegaly. - Bcx ngtd - sp cx normal gui Less likely UTI u/a wbc tnct, nit +, leuk +3; ucx cindy(colonizer) Hx of positive blood culture CONS ,persistent; recurrent 03/09 Bcx 2/ GPC 02/04 BCx: CoNS 01/30 Bc: (1/2)CoNS and Citrobacter 01/27 , 02/01 Bc: CoNS - (outside facility, # of the +ve cultures are not clear) A 2D echo from outside facility did not show any evidence of vegetation as per Carido pt is high risk for CLAY: ( last admission ) Diabetes. CHF. ESRD. Hypertension. Obesity. 03/08 SP PICC Line placement PLAN: Resume IV Vancomycin given recurrent bacteremia 03/08 SP vancomycin, day # ? ( will Rx for probable SBE) 02/27 SP plaquenil+azithromycin #5 02/25 SP Ertapenem #8 02/24 DC amikacin #6 Monitor CBC. Monitor BMP. Monitor cultures (blood, Sp ) COVID19 isolation u/a w/ reflex, Bcx x2 CBC, CMP am DW RN Subjective Allergies: Coded Allergies: NO KNOWN ALLERGIES (Unverified Allergy, Unknown, 10/15/15) Subjective afebrile >72hrs at mild leukocytosis increased Objective Vital Signs Last 24 Hour Vital Signs Date Time Temp Pulse Resp B/P (MAP) Pulse Ox O2 Delivery O2 Flow Rate FiO2 03/10/20 08:00 98.0 77 20 147/90 (109) 96 03/10/20 08:00 Room Air 03/10/20 04:00 97.7 78 21 128/74 (92) 100 03/10/20 00:00 97.0 92 18 168/82 (110) 97 03/09/20 22:40 Room Air 03/09/20 21:00 Room Air 03/09/20 20:50 80 20 96 Room Air 21 03/09/20 20:50 96 Room Air 21 03/09/20 20:00 97.3 74 19 182/84 (116) 100 03/09/20 16:00 97.3 78 28 151/76 (101) 98 03/09/20 16:00 74 Height (Feet): 5 Height (Inches): 7.00 Weight (Pounds): 223 Objective HEENT: atraumatic Neck: supple Respiratory/Chest: no respiratory distress Cardiovascular/Chest: regular rhythm Abdomen: soft Microbiology Date/Time Source Procedure Growth Status 03/09/20 15:30 Blood Blood Culture - Preliminary Resulted Laboratory Tests Test 03/09/20 20:15 03/10/20 04:45 Urine Color Brown Urine Appearance Cloudy Urine pH 8 (4.5-8.0) Urine Specific [place] 1.010 (1.005-1.035) Urine Protein 4+ (NEGATIVE) H Urine Glucose (UA) 1+ (NEGATIVE) H Urine Ketones 1+ (NEGATIVE) H Urine Blood 5+ (NEGATIVE) H Urine Nitrite Negative (NEGATIVE) Urine Bilirubin Negative (NEGATIVE) Urine Urobilinogen Normal MG/DL (0.0-1.0) Urine Leukocyte Esterase 3+ (NEGATIVE) H Urine RBC Tntc /HPF (0 - 2) H Urine WBC 40-60 /HPF (0 - 2) H Urine Squamous Epithelial Cells Moderate /LPF (NONE/OCC) H Urine Bacteria Many /HPF (NONE) H White Blood Count 12.7 K/UL (4.8-10.8) H Red Blood Count 3.98 M/UL (4.20-5.40) L Hemoglobin 9.5 G/DL (12.0-16.0) L Hematocrit 30.2 % (37.0-47.0) L Mean Corpuscular Volume 76 FL (80-99) L Mean Corpuscular Hemoglobin 24.0 PG (27.0-31.0) L Mean Corpuscular Hemoglobin Concent 31.7 G/DL (32.0-36.0) L Red Cell Distribution Width 16.0 % (11.6-14.8) H Platelet Count 321 K/UL (150-450) Mean Platelet Volume 5.8 FL (6.5-10.1) L Neutrophils (%) (Auto) % (45.0-75.0) Lymphocytes (%) (Auto) % (20.0-45.0) Monocytes (%) (Auto) % (1.0-10.0) Eosinophils (%) (Auto) % (0.0-3.0) Basophils (%) (Auto) % (0.0-2.0) Differential Total Cells Counted 100 Neutrophils % (Manual) 74 % (45-75) Lymphocytes % (Manual) 15 % (20-45) L Monocytes % (Manual) 8 % (1-10) Eosinophils % (Manual) 3 % (0-3) Basophils % (Manual) 0 % (0-2) Band Neutrophils 0 % (0-8) Nucleated Red Blood Cells 1 /100 WBC Platelet Estimate Adequate Platelet Morphology Normal Hypochromasia 2+ Anisocytosis 1+ Microcytosis 1+ Sodium Level 146 MMOL/L (136-145) H Potassium Level 3.5 MMOL/L (3.5-5.1) Chloride Level 101 MMOL/L (98-107) Carbon Dioxide Level 33 MMOL/L (21-32) H Anion Gap 12 mmol/L (5-15) Blood Urea Nitrogen 41 mg/dL (7-18) H Creatinine 6.3 MG/DL (0.55-1.30) H Estimat Glomerular Filtration Rate 8.2 mL/min (>60) Glucose Level 167 MG/DL (74-106) H Calcium Level 9.7 MG/DL (8.5-10.1) Phosphorus Level 2.9 MG/DL (2.5-4.9) Magnesium Level 2.9 MG/DL (1.8-2.4) H Total Bilirubin 0.9 MG/DL (0.2-1.0) Gamma Glutamyl Transpeptidase 239 U/L (5-85) H Aspartate Amino Transf (AST/SGOT) 27 U/L (15-37) Alanine Aminotransferase (ALT/SGPT) 29 U/L (12-78) Alkaline Phosphatase 243 U/L (46-116) H Lactate Dehydrogenase 335 U/L (81-234) H Total Protein 8.3 G/DL (6.4-8.2) H Albumin 3.2 G/DL (3.4-5.0) L Globulin 5.1 g/dL Albumin/Globulin Ratio 0.6 (1.0-2.7) L Current Medications Medications (Trade) Dose Ordered Sig/Josi Route PRN Reason Start Time Stop Time Status Last Admin Dose Admin Acetaminophen (Tylenol) 650 mg Q4H PRN GT fever 03/08/20 23:40 04/07/20 23:39 Albuterol/ Ipratropium (Combivent Respimat) 1 puff Q4H PRN INH Shortness of Breath 03/08/20 23:41 04/07/20 23:40 Atorvastatin Calcium (Lipitor) 10 mg BEDTIME NG 03/09/20 21:00 05/25/20 20:59 03/09/20 20:14 Chlorhexidine Gluconate (Jenny-Hex 2%) 1 applic DAILY@1999 TOPIC 03/09/20 20:00 06/06/20 19:59 03/09/20 20:13 Epoetin Jose De Jesus (Epoetin Jose De Jesus(ESRD on dialysis)) 10,000 unit SUN-SUN-SUN SUBQ 03/10/20 21:00 06/01/20 20:59 Heparin Sodium (Porcine) (Heparin 5000 units/ml) 5,000 units EVERY 12 HOURS SUBQ 03/09/20 09:00 04/10/20 08:59 03/10/20 08:47 Hydralazine HCl (Apresoline) 10 mg Q4H PRN IV Blood pressure over 160 systol 03/08/20 23:41 06/06/20 23:40 Insulin Aspart (NovoLOG) Q6HR SUBQ 03/09/20 00:00 05/20/20 12:29 03/10/20 12:00 Labetalol HCl (Normodyne) 20 mg Q1H PRN IV sbp more than 180mmHg 03/08/20 23:42 04/07/20 23:41 Lorazepam (Ativan 2mg/ml 1ml) 2 mg Q2H PRN IV For Anxiety 03/09/20 00:00 03/16/20 00:00 03/10/20 08:50 Ondansetron HCl (Zofran) 4 mg Q6H PRN IVP Nausea & Vomiting 03/09/20 00:30 03/26/20 06:29 Pantoprazole (Protonix) 40 mg Q12HR IVP 03/09/20 09:00 03/26/20 08:59 03/10/20 08:48 Pyridoxine HCl (Vitamin B6) 50 mg DAILY NG 03/09/20 09:00 03/26/20 08:59 03/10/20 08:49 Sevelamer Carbonate (Renvela) 800 mg Q6HR NG 03/09/20 00:00 05/25/20 11:59 03/10/20 05:06 Thiamine HCl 100 mg/Dextrose 56 ml @ 112 mls/hr Q24H IVPB 03/09/20 12:00 03/26/20 11:59 03/10/20 12:48 Vancomycin HCl (Vanco rx to dose) 1 ea DAILY PRN MISC vanco per Rx 03/10/20 13:00 04/09/20 12:59 Vancomycin HCl 1 gm/Dextrose 275 ml @ 183.708 mls/hr ONCE ONCE IVPB 03/10/20 14:00 03/10/20 15:29 Susi Vanegas M.D. Mar 10, 2020 13:43
[2020-03-10] MEDS ORDERED: Vancomycin 1gm/D5W 275ml IVPB ONE ×2 (14:00)
[2020-03-10 16:10] VITALS: BP 146/90
--- NOTE | 2020-03-10 19:00 | NUR ---
PER REPORT (THIS MORING DURING SHIFT CHANGE-PT HAD NOSE BLEED EPISODE 03/09/20). PLEASE NOTE PT DID NOT HAVE ANY EPISODES OF BLEEDING DURING DAY SHIFT. NO SIGNS OF ACTIVE BLEEDING NOTED. PT IN STABLE CONDITION.
--- NOTE | 2020-03-10 19:25 | NUR ---
GAVE FULL REPORT TO BRYAN SLOAN. PT IN NO APPARENT DISTRESS (RESTING IN BED).
--- NOTE | 2020-03-10 19:49 | NUR ---
NURSE NOTES: Pt received from NATHALIA Torre alert and oriented x1 to name only. PICC Line on left upper arm, asymptomatic and patent. Bed in lowest position, call light and belongings within reach.
[2020-03-10 20:00] VITALS: BP 147/84
--- NOTE | 2020-03-10 20:15 | NUR ---
NURSE NOTES: Spoke with Macy from [facility] Nephrology to confirm HD for 03/10.
--- NOTE | 2020-03-10 20:46 | Cardiology Progress Note ---
Assessment/Plan Assessment/Plan 1. Respiratory failure. 2. History of obesity hypoventilation syndrome. 3. History of pulmonary hypertension previously. 4. Urinary tract infection. 5. covid 19 infection confimred 6. pneumonia. 7. History of bacteremia with Staph epi recently on 02/05/2020. 8. somnolence i did not examine pt personally i did not feel the risk to me personally are worth the limited information that could be obtained while pt is not communicative and on a vent with confirmed covid 19 tele reviewed sinus and atrial paced sat normal off oxygen no cough no fever no diarrhea has bacteremia gpc again is on iv vanco await full id of johanny bacteremia , ID following hs of previous bacteremia note during hospitalization in early january holding off in ordering echo at this time due to active covid 19 infection all labs reviewed wbc seems higher dialysis Subjective Subjective per rn confused in restraints has ng tube and Tyler , tolerating feeding no compaint of any thing and is sleepy Objective Last 24 Hour Vital Signs Date Time Temp Pulse Resp B/P (MAP) Pulse Ox O2 Delivery O2 Flow Rate FiO2 03/10/20 16:10 98.0 94 18 146/90 (108) 95 03/10/20 12:00 97.7 83 18 158/90 (112) 95 03/10/20 08:15 95 Room Air 21 03/10/20 08:00 98.0 77 20 147/90 (109) 96 03/10/20 08:00 Room Air 03/10/20 04:00 97.7 78 21 128/74 (92) 100 03/10/20 00:00 97.0 92 18 168/82 (110) 97 03/09/20 22:40 Room Air 03/09/20 21:00 Room Air 03/09/20 20:50 80 20 96 Room Air 21 03/09/20 20:50 96 Room Air 21 Intake and Output 03/09/20 03/10/20 19:00 07:00 Intake Total 685 ml Output Total 30 ml 3080 ml Balance -30 ml -2395 ml Intake Free Water 300 ml Tube Feeding 385 ml Output Urine Total 30 ml 80 ml Hemodialysis UF 3000 ml # Bowel Movements 1 Laboratory Tests Test 03/10/20 04:45 White Blood Count 12.7 K/UL (4.8-10.8) H Red Blood Count 3.98 M/UL (4.20-5.40) L Hemoglobin 9.5 G/DL (12.0-16.0) L Hematocrit 30.2 % (37.0-47.0) L Mean Corpuscular Volume 76 FL (80-99) L Mean Corpuscular Hemoglobin 24.0 PG (27.0-31.0) L Mean Corpuscular Hemoglobin Concent 31.7 G/DL (32.0-36.0) L Red Cell Distribution Width 16.0 % (11.6-14.8) H Platelet Count 321 K/UL (150-450) Mean Platelet Volume 5.8 FL (6.5-10.1) L Neutrophils (%) (Auto) % (45.0-75.0) Lymphocytes (%) (Auto) % (20.0-45.0) Monocytes (%) (Auto) % (1.0-10.0) Eosinophils (%) (Auto) % (0.0-3.0) Basophils (%) (Auto) % (0.0-2.0) Differential Total Cells Counted 100 Neutrophils % (Manual) 74 % (45-75) Lymphocytes % (Manual) 15 % (20-45) L Monocytes % (Manual) 8 % (1-10) Eosinophils % (Manual) 3 % (0-3) Basophils % (Manual) 0 % (0-2) Band Neutrophils 0 % (0-8) Nucleated Red Blood Cells 1 /100 WBC Platelet Estimate Adequate Platelet Morphology Normal Hypochromasia 2+ Anisocytosis 1+ Microcytosis 1+ Sodium Level 146 MMOL/L (136-145) H Potassium Level 3.5 MMOL/L (3.5-5.1) Chloride Level 101 MMOL/L (98-107) Carbon Dioxide Level 33 MMOL/L (21-32) H Anion Gap 12 mmol/L (5-15) Blood Urea Nitrogen 41 mg/dL (7-18) H Creatinine 6.3 MG/DL (0.55-1.30) H Estimat Glomerular Filtration Rate 8.2 mL/min (>60) Glucose Level 167 MG/DL (74-106) H Calcium Level 9.7 MG/DL (8.5-10.1) Phosphorus Level 2.9 MG/DL (2.5-4.9) Magnesium Level 2.9 MG/DL (1.8-2.4) H Total Bilirubin 0.9 MG/DL (0.2-1.0) Gamma Glutamyl Transpeptidase 239 U/L (5-85) H Aspartate Amino Transf (AST/SGOT) 27 U/L (15-37) Alanine Aminotransferase (ALT/SGPT) 29 U/L (12-78) Alkaline Phosphatase 243 U/L (46-116) H Lactate Dehydrogenase 335 U/L (81-234) H Total Protein 8.3 G/DL (6.4-8.2) H Albumin 3.2 G/DL (3.4-5.0) L Globulin 5.1 g/dL Albumin/Globulin Ratio 0.6 (1.0-2.7) L Microbiology Date/Time Source Procedure Growth Status 03/09/20 15:30 Blood Blood Culture - Preliminary Resulted Wilfredo Reyna MD Mar 10, 2020 20:46
[2020-03-10] MEDS ORDERED: Epoetin Alfa-EPBX(ESRD on dialysis)10,000 unit/ml vial SUBQ SCH (21:00)
[2020-03-10] MEDS: Dyna-Hex 2% Top Sol 2oz TOPIC SCH (21:06)
--- NOTE | 2020-03-10 23:18 | NUR ---
TRANSFER TO FLOOR: Patient transferred to [facility], per Dr. Henning. Report given to NATHALIA Lopez. Belongings and medications given to NATHALIA Lopez. Family and or S/O informed of transfer.
[2020-03-10] MEDS ORDERED: Acetaminophen 650mg/20.3ml GT PRN (23:45)
--- NOTE | 2020-03-10 23:50 | NUR ---
NURSE NOTES: Received patient in striker bed from tele unit, alert to name, on room air. Covid-19 (+) and VRE- rectum(+) precautions. With NGT on right nares, patent. On bilateral soft wrist restraints. Pulses palpable. With PICC on left upper arm double lumen cath. For lab draw this AM. Call light in reach. Bed in lowest, lock engaged and alarm on.
[2020-03-11] VITALS (7 sets, daily range): BP systolic 114–166; BP diastolic 53–84
--- NOTE | 2020-03-11 | NUR ---
NURSE NOTES: Reconnected to NGT feeding.
[2020-03-11] MEDS: Renvela 800mg Pkt NG SCH ×4 (00:27→17:21)
[2020-03-11 05:30] LABS: BASOPHILS % (AUTO) 0.6 % (0.0-2.0); EOSINOPHILS % (AUTO) 3.7 % (0.0-3.0); HEMATOCRIT 29.7 % (37.0-47.0); HEMOGLOBIN 9.3 G/DL (12.0-16.0); LYMPHOCYTES % (AUTO) 19.6 % (20.0-45.0); MEAN CORPUSCULAR VOLUME 75 FL (80-99); MONOCYTES % (AUTO) 13.3 % (1.0-10.0); NEUTROPHILS % (AUTO) 62.9 % (45.0-75.0); PLATELET COUNT 332 K/UL (150-450); RED BLOOD COUNT 3.94 M/UL (4.20-5.40); RED CELL DISTRIBUTION WIDTH 15.8 % (11.6-14.8); WHITE BLOOD COUNT 11.8 K/UL (4.8-10.8)
--- NOTE | 2020-03-11 06:00 | NUR ---
NURSE NOTES: Blood drawn from PICC and sent to the lab.
[2020-03-11] MEDS: NovoLOG Insulin Flexpen SUBQ SCH ×4 (06:06→17:21)
[2020-03-11 07:07] LABS: ANION GAP 11 mmol/L (5-15); BLOOD UREA NITROGEN 53 mg/dL (7-18); CALCIUM 9.5 MG/DL (8.5-10.1); CARBON DIOXIDE 34 MMOL/L (21-32); CHLORIDE 98 MMOL/L (98-107); POTASSIUM 3.7 MMOL/L (3.5-5.1); SODIUM 143 MMOL/L (136-145)
--- NOTE | 2020-03-11 07:41 | NUR ---
HAND-OFF: Report given to NATHALIA Garcia.
--- NOTE | 2020-03-11 08:22 | NUR ---
NURSE NOTES: Patient awake; on room air, no sing of distress and shortness of breath; no sing of chest pain; Hemodialysis access Right Upper Arm AV shunt; patient scheduled for dialysis today; NG-Tube in place, Nephro running at 35cc, no residual, head of the bed elevated, side rails up x2, breaks engaged, bed at lowest position, bed alarm on; will keep monitoring.
--- NOTE | 2020-03-11 08:55 | Nephrology Progress Note ---
Assessment/Plan Problem List: (1) Acute respiratory failure (2) ESRD (end stage renal disease) on dialysis (3) UTI (urinary tract infection) (4) Patient is Hindu (5) Pacemaker (6) Diabetes (7) Obesity (BMI 30-39.9) Assessment ARDS (adult respiratory distress syndrome) Fever Sepsis UTI (urinary tract infection) Respiratory failure, intubated on ventilator Thrombocytopenia Lymphopenia End stage renal disease on dialysis. Has a right upper arm dialysis fistula as Acces . Getting dialysis Sunday. morbid obesity Anemia / Jehova's witness CAD previous stent HTN- hypertensive urgency upon arrival to [facility]. s/p AVG DM 2 bilateral eye blindness h/o CHF Pacemaker Plan Patient extubated March 04, and remains extubated, now in MedSurg floor Patient positive for Covid 19 Per ID and pulmonary, Last dialyzed March 09 next 03/11 EPO, thiamin and b6 Phos binders NGT feeding per consultants Remains full code at this time Subjective ROS Limited/Unobtainable: No Constitutional: Reports: malaise, weakness Objective Objective Last 24 Hour Vital Signs Date Time Temp Pulse Resp B/P (MAP) Pulse Ox O2 Delivery O2 Flow Rate FiO2 03/11/20 08:33 95 Room Air 21 03/11/20 04:00 97.5 90 20 114/53 (73) 98 03/11/20 00:00 97.5 80 18 157/84 (108) 94 03/10/20 21:00 Room Air 03/10/20 20:49 96 Room Air 21 03/10/20 20:00 98.2 97 19 147/84 (105) 98 03/10/20 16:10 98.0 94 18 146/90 (108) 95 03/10/20 12:00 97.7 83 18 158/90 (112) 95 Intake and Output 03/10/20 03/11/20 19:00 07:00 Intake Total 345 ml Balance 345 ml Intake Free Water 100 ml Tube Feeding 245 ml # Voids 1 # Bowel Movements 2 Laboratory Tests 03/11/20 02:45: White Blood Count 11.8H, Red Blood Count 3.94L, Hemoglobin 9.3L, Hematocrit 29.7L, Mean Corpuscular Volume 75L, Mean Corpuscular Hemoglobin 23.7L, Mean Corpuscular Hemoglobin Concent 31.5L, Red Cell Distribution Width 15.8H, Platelet Count 332, Mean Platelet Volume 5.8L, Neutrophils (%) (Auto) 62.9, Lymphocytes (%) (Auto) 19.6L, Monocytes (%) (Auto) 13.3H, Eosinophils (%) (Auto ) 3.7H, Basophils (%) (Auto) 0.6, Sodium Level 143, Potassium Level 3.7, Chloride Level 98, Carbon Dioxide Level 34H, Anion Gap 11, Blood Urea Nitrogen 53H, Creatinine 8.0H, Estimat Glomerular Filtration Rate 6.2, Glucose Level 118H , Calcium Level 9.5 Height (Feet): 5 Height (Inches): 7.00 Weight (Pounds): 226 General Appearance: no apparent distress, lethargic Respiratory/Chest: decreased breath sounds Abdomen: soft Bryan Hunter MD Mar 11, 2020 08:55
[2020-03-11] MEDS: Heparin 5000 units/ml inj SUBQ SCH ×2 (09:00→20:55)
[2020-03-11] MEDS: Pyridoxine 50mg tab NG SCH (09:40)
[2020-03-11] MEDS: Pantoprazole Inj IVP SCH ×2 (09:40→20:54)
[2020-03-11] MEDS: Thiamine HCl 100 MG in D5W 55 ML IVPB SCH (12:22)
--- NOTE | 2020-03-11 12:39 | General Progress Note ---
Assessment/Plan Problem List: (1) Obesity (BMI 30-39.9) ICD Codes: E66.9 - Obesity, unspecified SNOMED: 999926838, 379009602 (2) COVID-19 virus infection ICD Codes: U07.1 - COVID-19 SNOMED: 121041476 (3) Acute respiratory failure ICD Codes: J96.00 - Acute respiratory failure, unspecified whether with hypoxia or hypercapnia SNOMED: 59875843 (4) Blindness of both eyes ICD Codes: H54.0 - Blindness SNOMED: 824009998 (5) ESRD (end stage renal disease) on dialysis ICD Codes: N18.6 - End stage renal disease; Z99.2 - Dependence on renal dialysis SNOMED: 702828020 (6) Anemia ICD Codes: D64.9 - Anemia, unspecified SNOMED: 782755918 (7) Diabetes ICD Codes: E11.9 - Type 2 diabetes mellitus without complications SNOMED: 27958659 (8) AMS (altered mental status) ICD Codes: R41.82 - Altered mental status, unspecified SNOMED: 341411541 Status: unchanged Assessment/Plan: vent abx dialysis cbc bmp am ltach eval Subjective Allergies: Coded Allergies: NO KNOWN ALLERGIES (Unverified Allergy, Unknown, 10/15/15) All Systems: reviewed and negative except above Subjective lethargic sleepy Objective Last 24 Hour Vital Signs Date Time Temp Pulse Resp B/P (MAP) Pulse Ox O2 Delivery O2 Flow Rate FiO2 03/11/20 09:00 Room Air 03/11/20 08:33 95 Room Air 21 03/11/20 08:00 96.8 90 20 166/76 (106) 96 03/11/20 04:00 97.5 90 20 114/53 (73) 98 03/11/20 00:00 97.5 80 18 157/84 (108) 94 03/10/20 21:00 Room Air 03/10/20 20:49 96 Room Air 21 03/10/20 20:00 98.2 97 19 147/84 (105) 98 03/10/20 16:10 98.0 94 18 146/90 (108) 95 Intake and Output 03/10/20 03/11/20 19:00 07:00 Intake Total 345 ml Balance 345 ml Intake Free Water 100 ml Tube Feeding 245 ml # Voids 1 # Bowel Movements 2 Laboratory Tests 03/11/20 02:45: White Blood Count 11.8H, Red Blood Count 3.94L, Hemoglobin 9.3L, Hematocrit 29.7L, Mean Corpuscular Volume 75L, Mean Corpuscular Hemoglobin 23.7L, Mean Corpuscular Hemoglobin Concent 31.5L, Red Cell Distribution Width 15.8H, Platelet Count 332, Mean Platelet Volume 5.8L, Neutrophils (%) (Auto) 62.9, Lymphocytes (%) (Auto) 19.6L, Monocytes (%) (Auto) 13.3H, Eosinophils (%) (Auto ) 3.7H, Basophils (%) (Auto) 0.6, Sodium Level 143, Potassium Level 3.7, Chloride Level 98, Carbon Dioxide Level 34H, Anion Gap 11, Blood Urea Nitrogen 53H, Creatinine 8.0H, Estimat Glomerular Filtration Rate 6.2, Glucose Level 118H , Calcium Level 9.5 Height (Feet): 5 Height (Inches): 7.00 Weight (Pounds): 226 General Appearance: lethargic EENT: normal ENT inspection Neck: normal alignment Cardiovascular: normal rate, regular rhythm Respiratory/Chest: no accessory muscle use Extremities: normal inspection Skin: normal pigmentation Roderick Henning DO Mar 11, 2020 12:39
--- NOTE | 2020-03-11 12:55 | Pulmonology Progress Note ---
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 (8) Diabetes Assessment/Plan still confused tolerating extubation improving still has NG tube on isolation afebrile in the last few days f/u cultures respiratory treatment Subjective ROS Limited/Unobtainable: No Constitutional: Reports: no symptoms HEENT: Repors: no symptoms Respiratory: Reports: no symptoms Allergies: Coded Allergies: NO KNOWN ALLERGIES (Unverified Allergy, Unknown, 10/15/15) Objective Last 24 Hour Vital Signs Date Time Temp Pulse Resp B/P (MAP) Pulse Ox O2 Delivery O2 Flow Rate FiO2 03/11/20 09:00 Room Air 03/11/20 08:33 95 Room Air 21 03/11/20 08:00 96.8 90 20 166/76 (106) 96 03/11/20 04:00 97.5 90 20 114/53 (73) 98 03/11/20 00:00 97.5 80 18 157/84 (108) 94 03/10/20 21:00 Room Air 03/10/20 20:49 96 Room Air 21 03/10/20 20:00 98.2 97 19 147/84 (105) 98 03/10/20 16:10 98.0 94 18 146/90 (108) 95 Intake and Output 03/10/20 03/11/20 19:00 07:00 Intake Total 345 ml Balance 345 ml Intake Free Water 100 ml Tube Feeding 245 ml # Voids 1 # Bowel Movements 2 Objective has ng tube,confused General Appearance: WD/WN HEENT: normocephalic, atraumatic, PERRL Respiratory/Chest: chest wall non-tender, lungs clear Cardiovascular: normal peripheral pulses, normal rate Abdomen: normal bowel sounds, soft, non tender Extremities: no cyanosis Skin: no rash Microbiology Date/Time Source Procedure Growth Status 03/10/20 13:30 Blood Blood Culture - Preliminary Resulted 03/10/20 13:20 Blood Blood Culture - Preliminary Resulted 03/09/20 15:30 Blood Blood Culture - Preliminary Gram Positive Cocci Resulted 03/09/20 15:30 Blood Blood Culture - Preliminary Gram Positive Cocci Resulted Laboratory Tests 03/11/20 02:45: White Blood Count 11.8H, Red Blood Count 3.94L, Hemoglobin 9.3L, Hematocrit 29.7L, Mean Corpuscular Volume 75L, Mean Corpuscular Hemoglobin 23.7L, Mean Corpuscular Hemoglobin Concent 31.5L, Red Cell Distribution Width 15.8H, Platelet Count 332, Mean Platelet Volume 5.8L, Neutrophils (%) (Auto) 62.9, Lymphocytes (%) (Auto) 19.6L, Monocytes (%) (Auto) 13.3H, Eosinophils (%) (Auto ) 3.7H, Basophils (%) (Auto) 0.6, Sodium Level 143, Potassium Level 3.7, Chloride Level 98, Carbon Dioxide Level 34H, Anion Gap 11, Blood Urea Nitrogen 53H, Creatinine 8.0H, Estimat Glomerular Filtration Rate 6.2, Glucose Level 118H , Calcium Level 9.5 Current Medications Medications (Trade) Dose Ordered Sig/Josi Route PRN Reason Start Time Stop Time Status Last Admin Dose Admin Acetaminophen (Tylenol) 650 mg Q4H PRN GT fever 03/10/20 23:45 04/07/20 23:39 Albuterol/ Ipratropium (Combivent Respimat) 1 puff Q4H PRN INH Shortness of Breath 03/10/20 23:45 04/07/20 23:40 Atorvastatin Calcium (Lipitor) 10 mg BEDTIME NG 03/11/20 21:00 05/25/20 20:59 Chlorhexidine Gluconate (Jenny-Hex 2%) 1 applic DAILY@2000 TOPIC 03/11/20 20:00 06/06/20 19:59 Epoetin Jose De Jesus (Epoetin Jose De Jesus(ESRD on dialysis)) 10,000 unit SUN-SUN-SUN SUBQ 03/12/20 21:00 06/01/20 20:59 Heparin Sodium (Porcine) (Heparin 5000 units/ml) 5,000 units EVERY 12 HOURS SUBQ 03/11/20 09:00 04/10/20 08:59 Insulin Aspart (NovoLOG) Q6HR SUBQ 03/11/20 00:00 05/20/20 12:29 03/11/20 12:00 Lorazepam (Ativan 2mg/ml 1ml) 2 mg Q2H PRN IV For Anxiety 03/11/20 00:00 03/16/20 00:00 Ondansetron HCl (Zofran) 4 mg Q6H PRN IVP Nausea & Vomiting 03/11/20 00:30 03/26/20 06:29 Pantoprazole (Protonix) 40 mg Q12HR IVP 03/11/20 09:00 03/26/20 08:59 03/11/20 09:40 Pyridoxine HCl (Vitamin B6) 50 mg DAILY NG 03/11/20 09:00 03/26/20 08:59 03/11/20 09:40 Sevelamer Carbonate (Renvela) 800 mg Q6HR NG 03/11/20 00:00 05/25/20 11:59 03/11/20 12:22 Thiamine HCl 100 mg/Dextrose 56 ml @ 112 mls/hr Q24H IVPB 03/11/20 12:00 03/26/20 11:59 03/11/20 12:22 Vancomycin HCl (Vanco rx to dose) 1 ea DAILY PRN MISC vanco per Rx 03/11/20 09:00 04/09/20 12:59 Meghana Murillo MD Mar 11, 2020 12:55
--- NOTE | 2020-03-11 14:07 | NUR ---
DISCHARGE PLANNING CALL MADE TO RUY ORTIZ [phone]. 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 IN RE TO READMISSIONS FOR COVID-19+ PATIENTS, PROTOCOL FOR READMISSION AT THIS TIME ARE: 7-14 DAY HOSPITALIZATION AFEBRILE FOR 72 HOURS W/O ANTIPYRETICS 2ND COVID-19 TEST WITH NEGATIVE RESULT
[2020-03-11] MEDS ORDERED: Omnipaque-300 100ml vial INJ PRN (14:15)
--- NOTE | 2020-03-11 14:24 | Infectious Diseases Prog Note ---
Assessment/Plan Assessment/Plan The patient is a 64-year-old female with Persistent/recurrent GPC bacteremia (despite 6 weeks of treatment)- highgly suspicious for endovascular source (ie AVF infection, endocarditis) 03/09 Bcx 02/27 GPC, 03/10 Bcx 02/27 GPC Confirmed COVID-19. SARS-CoV PCR positive. Pneumonia Mild leukocytosis, improvnig -03/09 u/a wbc 40-60, nit neg, leuk +3 Fever, recurrent, SP VDRF- sp self extubation 03/05, now on at [facility] - likely 2/2 COVID, less likely active bacterial superinfection since pt just completed empiric course of antibacterial therapy and sputum cx NG -03/07 CXR: Persistent vascular congestion and suspected interstitial edema.Cardiomegaly with pacer. - 03/01 CXR: Worsening bilateral hazy parenchymal infiltrates, versus edema - 02/20 CXR: Mild pulmonary vascular congestion with subtle bilateral haziness, not significantly changed.Possible tiny pleural effusions. Cardiomegaly. - Bcx ngtd - sp cx normal gui Less likely UTI u/a wbc tnct, nit +, leuk +3; ucx cindy(colonizer) Hx of positive blood culture CONS ,persistent; recurrent 02/04 BCx: CoNS 01/30 Bc: (1/2)CoNS and Citrobacter 01/27 , 02/01 Bc: CoNS - (outside facility, # of the +ve cultures are not clear) A 2D echo from outside facility did not show any evidence of vegetation as per Carido pt is high risk for CLAY: ( last admission ) Diabetes. CHF. ESRD. Hypertension. Obesity. 03/08 SP PICC Line placement PLAN: Switch IV Vancomycin #2 to Daptomycin empiric for VRE and given recurrence of bacteremia despite prolonged IV Vancomycin course 03/08 SP vancomycin, day # ? 42/42 ( will Rx for probable SBE) 02/27 SP plaquenil+azithromycin #5 02/25 SP Ertapenem #8 02/24 DC amikacin #6 Monitor CBC. Monitor BMP. Monitor cultures (blood, Sp ) COVID19 isolation; repeat test to determine if can come out of isolation CT C/abd/p w/ to eval for occult abscess 2d Echo CPK will need WBC scan to eval for AVF infection JAE RN Subjective Allergies: Coded Allergies: NO KNOWN ALLERGIES (Unverified Allergy, Unknown, 10/15/15) Subjective afebrile persistently bacteremic at RA wbc improving Objective Vital Signs Last 24 Hour Vital Signs Date Time Temp Pulse Resp B/P (MAP) Pulse Ox O2 Delivery O2 Flow Rate FiO2 03/11/20 12:00 97.5 90 20 150/69 (96) 96 03/11/20 09:00 Room Air 03/11/20 08:33 95 Room Air 21 03/11/20 08:00 96.8 90 20 166/76 (106) 96 03/11/20 04:00 97.5 90 20 114/53 (73) 98 03/11/20 00:00 97.5 80 18 157/84 (108) 94 03/10/20 21:00 Room Air 03/10/20 20:49 96 Room Air 21 03/10/20 20:00 98.2 97 19 147/84 (105) 98 03/10/20 16:10 98.0 94 18 146/90 (108) 95 Height (Feet): 5 Height (Inches): 7.00 Weight (Pounds): 226 Objective not seen to limit COVID19 exposure Microbiology Date/Time Source Procedure Growth Status 03/10/20 13:30 Blood Blood Culture - Preliminary Resulted 03/10/20 13:20 Blood Blood Culture - Preliminary Resulted 03/09/20 15:30 Blood Blood Culture - Preliminary Gram Positive Cocci Resulted 03/09/20 15:30 Blood Blood Culture - Preliminary Gram Positive Cocci Resulted Laboratory Tests Test 03/11/20 02:45 White Blood Count 11.8 K/UL (4.8-10.8) H Red Blood Count 3.94 M/UL (4.20-5.40) L Hemoglobin 9.3 G/DL (12.0-16.0) L Hematocrit 29.7 % (37.0-47.0) L Mean Corpuscular Volume 75 FL (80-99) L Mean Corpuscular Hemoglobin 23.7 PG (27.0-31.0) L Mean Corpuscular Hemoglobin Concent 31.5 G/DL (32.0-36.0) L Red Cell Distribution Width 15.8 % (11.6-14.8) H Platelet Count 332 K/UL (150-450) Mean Platelet Volume 5.8 FL (6.5-10.1) L Neutrophils (%) (Auto) 62.9 % (45.0-75.0) Lymphocytes (%) (Auto) 19.6 % (20.0-45.0) L Monocytes (%) (Auto) 13.3 % (1.0-10.0) H Eosinophils (%) (Auto) 3.7 % (0.0-3.0) H Basophils (%) (Auto) 0.6 % (0.0-2.0) Sodium Level 143 MMOL/L (136-145) Potassium Level 3.7 MMOL/L (3.5-5.1) Chloride Level 98 MMOL/L (98-107) Carbon Dioxide Level 34 MMOL/L (21-32) H Anion Gap 11 mmol/L (5-15) Blood Urea Nitrogen 53 mg/dL (7-18) H Creatinine 8.0 MG/DL (0.55-1.30) H Estimat Glomerular Filtration Rate 6.2 mL/min (>60) Glucose Level 118 MG/DL (74-106) H Calcium Level 9.5 MG/DL (8.5-10.1) Current Medications Medications (Trade) Dose Ordered Sig/Josi Route PRN Reason Start Time Stop Time Status Last Admin Dose Admin Acetaminophen (Tylenol) 650 mg Q4H PRN GT fever 03/10/20 23:45 04/07/20 23:39 Albuterol/ Ipratropium (Combivent Respimat) 1 puff Q4H PRN INH Shortness of Breath 03/10/20 23:45 04/07/20 23:40 Atorvastatin Calcium (Lipitor) 10 mg BEDTIME NG 03/11/20 21:00 05/25/20 20:59 Chlorhexidine Gluconate (Jenny-Hex 2%) 1 applic DAILY@2000 TOPIC 03/11/20 20:00 06/06/20 19:59 Epoetin Jose De Jesus (Epoetin Jose De Jesus(ESRD on dialysis)) 10,000 unit SUN-SUN-SUN SUBQ 03/12/20 21:00 06/01/20 20:59 Heparin Sodium (Porcine) (Heparin 5000 units/ml) 5,000 units EVERY 12 HOURS SUBQ 03/11/20 09:00 04/10/20 08:59 Insulin Aspart (NovoLOG) Q6HR SUBQ 03/11/20 00:00 05/20/20 12:29 03/11/20 12:00 Lorazepam (Ativan 2mg/ml 1ml) 2 mg Q2H PRN IV For Anxiety 03/11/20 00:00 03/16/20 00:00 Ondansetron HCl (Zofran) 4 mg Q6H PRN IVP Nausea & Vomiting 03/11/20 00:30 03/26/20 06:29 Pantoprazole (Protonix) 40 mg Q12HR IVP 03/11/20 09:00 03/26/20 08:59 03/11/20 09:40 Pyridoxine HCl (Vitamin B6) 50 mg DAILY NG 03/11/20 09:00 03/26/20 08:59 03/11/20 09:40 Sevelamer Carbonate (Renvela) 800 mg Q6HR NG 03/11/20 00:00 05/25/20 11:59 03/11/20 12:22 Thiamine HCl 100 mg/Dextrose 56 ml @ 112 mls/hr Q24H IVPB 03/11/20 12:00 03/26/20 11:59 03/11/20 12:22 Vancomycin HCl (Vanco rx to dose) 1 ea DAILY PRN MISC vanco per Rx 03/11/20 09:00 04/09/20 12:59 Susi Vanegas M.D. Mar 11, 2020 14:24
--- NOTE | 2020-03-11 16:51 | NUR ---
NURSE NOTES: Swap for COVID-19 upper source collected; Blood culture collected; waiting for results;
[2020-03-11] MEDS: NS IV SCH (17:21)
[2020-03-11] MEDS: DAPTOMYCIN IV SCH (17:21)
--- NOTE | 2020-03-11 17:54 | Cardiology Progress Note ---
Assessment/Plan Assessment/Plan 1. Respiratory failure. 2. History of obesity hypoventilation syndrome. 3. History of pulmonary hypertension previously. 4. Urinary tract infection. 5. covid 19 infection confimred 6. pneumonia. 7. History of bacteremia with Staph epi recently on 02/05/2020. 8. somnolence i did not examine pt personally i did not feel the risk to me personally are worth the limited information that could be obtained while pt is not communicative and on a vent with confirmed covid 19 now off tele sat normal off oxygen no cough no fever no diarrhea has bacteremia gpc again sourse picc line ? difficult to start peripheral line so not removed picc placed on 03/08 blood cx +on 03/09 all labs reviewed wbc better dialysis Subjective ROS Limited/Unobtainable: Yes Subjective per rn confused in restraints has ng tube and Tyler , tolerating feeding no compaint of any thing and is sleepy Objective Last 24 Hour Vital Signs Date Time Temp Pulse Resp B/P (MAP) Pulse Ox O2 Delivery O2 Flow Rate FiO2 03/11/20 16:00 97.7 79 20 158/83 (108) 95 03/11/20 12:00 97.5 90 20 150/69 (96) 96 03/11/20 10:00 85 20 97 Room Air 21 03/11/20 09:00 Room Air 03/11/20 08:33 95 Room Air 21 03/11/20 08:00 96.8 90 20 166/76 (106) 96 03/11/20 04:00 97.5 90 20 114/53 (73) 98 03/11/20 00:00 97.5 80 18 157/84 (108) 94 03/10/20 21:00 Room Air 03/10/20 20:49 96 Room Air 21 03/10/20 20:00 98.2 97 19 147/84 (105) 98 Intake and Output 03/10/20 03/11/20 19:00 07:00 Intake Total 345 ml Balance 345 ml Intake Free Water 100 ml Tube Feeding 245 ml # Voids 1 # Bowel Movements 2 Laboratory Tests Test 03/11/20 02:45 White Blood Count 11.8 K/UL (4.8-10.8) H Red Blood Count 3.94 M/UL (4.20-5.40) L Hemoglobin 9.3 G/DL (12.0-16.0) L Hematocrit 29.7 % (37.0-47.0) L Mean Corpuscular Volume 75 FL (80-99) L Mean Corpuscular Hemoglobin 23.7 PG (27.0-31.0) L Mean Corpuscular Hemoglobin Concent 31.5 G/DL (32.0-36.0) L Red Cell Distribution Width 15.8 % (11.6-14.8) H Platelet Count 332 K/UL (150-450) Mean Platelet Volume 5.8 FL (6.5-10.1) L Neutrophils (%) (Auto) 62.9 % (45.0-75.0) Lymphocytes (%) (Auto) 19.6 % (20.0-45.0) L Monocytes (%) (Auto) 13.3 % (1.0-10.0) H Eosinophils (%) (Auto) 3.7 % (0.0-3.0) H Basophils (%) (Auto) 0.6 % (0.0-2.0) Sodium Level 143 MMOL/L (136-145) Potassium Level 3.7 MMOL/L (3.5-5.1) Chloride Level 98 MMOL/L (98-107) Carbon Dioxide Level 34 MMOL/L (21-32) H Anion Gap 11 mmol/L (5-15) Blood Urea Nitrogen 53 mg/dL (7-18) H Creatinine 8.0 MG/DL (0.55-1.30) H Estimat Glomerular Filtration Rate 6.2 mL/min (>60) Glucose Level 118 MG/DL (74-106) H Calcium Level 9.5 MG/DL (8.5-10.1) Microbiology Date/Time Source Procedure Growth Status 03/10/20 13:30 Blood Blood Culture - Preliminary Resulted 03/10/20 13:20 Blood Blood Culture - Preliminary Resulted 03/09/20 15:30 Blood Blood Culture - Preliminary Gram Positive Cocci Resulted 03/09/20 15:30 Blood Blood Culture - Preliminary Gram Positive Cocci Resulted Wilfredo Reyna MD Mar 11, 2020 17:54
--- NOTE | 2020-03-11 19:28 | NUR ---
HAND-OFF: Report given to NATHALIA Mendoza.
[2020-03-11] MEDS: Dyna-Hex 2% Top Sol 2oz TOPIC SCH (20:54)
--- NOTE | 2020-03-11 22:00 | NUR ---
NURSE NOTES: Patient in bed, awake, unable to make needs known. Confused, alert x 1 Respiration is even. No s/s of pain or discomfort noted. Skin is warm and dry. Noted with sacral dressing. Picc line noted. NG tube noted, infusing as ordered. Bed in low and locked position. Restraints noted, site is intact. call light is at bedside. Isolation precaution observed. Will continue plan of care.
[2020-03-12] VITALS: BP 118/63
--- NOTE | 2020-03-12 | NUR ---
NURSE NOTES: Patient novolog pen not available. Not in bin or in room. Charge nurse made aware.
[2020-03-12] MEDS: Renvela 800mg Pkt NG SCH ×4 (00:16→18:43)
[2020-03-12 04:00] VITALS: BP 127/68
[2020-03-12] MEDS: NovoLOG Insulin Flexpen SUBQ SCH ×4 (06:00→18:44)
[2020-03-12 06:38] LABS: HEMATOCRIT 30.8 % (37.0-47.0); HEMOGLOBIN 9.6 G/DL (12.0-16.0); MEAN CORPUSCULAR VOLUME 76 FL (80-99); PLATELET COUNT 307 K/UL (150-450); RED BLOOD COUNT 4.04 M/UL (4.20-5.40); RED CELL DISTRIBUTION WIDTH 16.3 % (11.6-14.8); WHITE BLOOD COUNT 12.2 K/UL (4.8-10.8)
[2020-03-12 07:25] LABS: CREATINE KINASE 67 U/L (26-308)
--- NOTE | 2020-03-12 07:41 | NUR ---
HAND-OFF: Report given to NATHALIA Estrada.
[2020-03-12 07:57] LABS: ANION GAP 8 mmol/L (5-15); BLOOD UREA NITROGEN 40 mg/dL (7-18); CALCIUM 9.8 MG/DL (8.5-10.1); CARBON DIOXIDE 35 MMOL/L (21-32); CHLORIDE 99 MMOL/L (98-107); CREATININE 6.2 MG/DL (0.55-1.30); POTASSIUM 3.7 MMOL/L (3.5-5.1); SODIUM 142 MMOL/L (136-145)
[2020-03-12 08:00] VITALS: BP 128/69
--- NOTE | 2020-03-12 08:02 | NUR ---
NURSE NOTES: pt is the bed alert and awake. respiration is even and unlabored. no s/s of pain and discomfort noted. no acute distress noted at this time. placed call light within reach.
--- NOTE | 2020-03-12 09:07 | General Progress Note ---
Assessment/Plan Problem List: (1) Obesity (BMI 30-39.9) ICD Codes: E66.9 - Obesity, unspecified SNOMED: 460575651, 186992715 (2) COVID-19 virus infection ICD Codes: U07.1 - COVID-19 SNOMED: 432991701 (3) Acute respiratory failure ICD Codes: J96.00 - Acute respiratory failure, unspecified whether with hypoxia or hypercapnia SNOMED: 89031436 (4) Blindness of both eyes ICD Codes: H54.0 - Blindness SNOMED: 411252137 (5) ESRD (end stage renal disease) on dialysis ICD Codes: N18.6 - End stage renal disease; Z99.2 - Dependence on renal dialysis SNOMED: 026773554 (6) Anemia ICD Codes: D64.9 - Anemia, unspecified SNOMED: 221532234 (7) Diabetes ICD Codes: E11.9 - Type 2 diabetes mellitus without complications SNOMED: 31493636 (8) AMS (altered mental status) ICD Codes: R41.82 - Altered mental status, unspecified SNOMED: 671351366 Status: unchanged Assessment/Plan: vent abx dialysis cbc bmp am ltach eval Subjective Constitutional: Reports: weakness Allergies: Coded Allergies: NO KNOWN ALLERGIES (Unverified Allergy, Unknown, 10/15/15) All Systems: reviewed and negative except above Subjective ng lethargic sleepy Objective Last 24 Hour Vital Signs Date Time Temp Pulse Resp B/P (MAP) Pulse Ox O2 Delivery O2 Flow Rate FiO2 03/12/20 04:00 98.7 87 20 127/68 (87) 96 03/12/20 00:00 98.1 75 20 118/63 (81) 94 03/11/20 22:30 98.0 92 20 149/78 (101) 96 03/11/20 21:00 Room Air 03/11/20 20:00 97.8 82 20 149/78 (101) 96 03/11/20 19:33 95 Room Air 21 03/11/20 16:00 97.7 79 20 158/83 (108) 95 03/11/20 12:00 97.5 90 20 150/69 (96) 96 03/11/20 10:00 85 20 97 Room Air 21 Intake and Output 03/11/20 03/12/20 19:00 07:00 Intake Total 867 ml 480 ml Output Total 3000 ml Balance 867 ml -2520 ml Intake Free Water 200 ml 200 ml IV Total 212 ml Tube Feeding 455 ml 280 ml Hemodialysis UF 3000 ml Laboratory Tests 03/12/20 05:30: White Blood Count 12.2H, Red Blood Count 4.04L, Hemoglobin 9.6L, Hematocrit 30.8L, Mean Corpuscular Volume 76L, Mean Corpuscular Hemoglobin 23.8L, Mean Corpuscular Hemoglobin Concent 31.2L, Red Cell Distribution Width 16.3H, Platelet Count 307, Mean Platelet Volume 5.7L, Neutrophils (%) (Auto) , Lymphocytes (%) (Auto) , Monocytes (%) (Auto) , Eosinophils (%) (Auto) , Basophils (%) (Auto) , Neutrophils % (Manual) [Pending], Lymphocytes % (Manual) [Pending], Platelet Estimate [Pending], Platelet Morphology [Pending], Sodium Level 142, Potassium Level 3.7, Chloride Level 99, Carbon Dioxide Level 35H, Anion Gap 8, Blood Urea Nitrogen 40H, Creatinine 6.2H, Estimat Glomerular Filtration Rate 8.2, Glucose Level 170H, Calcium Level 9.8, Total Creatine Kinase 67 Height (Feet): 5 Height (Inches): 7.00 Weight (Pounds): 228 General Appearance: lethargic EENT: normal ENT inspection Neck: normal alignment Cardiovascular: normal rate, regular rhythm Respiratory/Chest: no respiratory distress, no accessory muscle use Extremities: normal inspection Skin: normal pigmentation Roderick Henning DO Mar 12, 2020 09:07
--- NOTE | 2020-03-12 09:20 | Nephrology Progress Note ---
Assessment/Plan Problem List: (1) Acute respiratory failure (2) ESRD (end stage renal disease) on dialysis (3) UTI (urinary tract infection) (4) Patient is Taoism (5) Pacemaker (6) Diabetes (7) Obesity (BMI 30-39.9) Assessment ARDS (adult respiratory distress syndrome) Fever Sepsis UTI (urinary tract infection) Respiratory failure, intubated on ventilator Thrombocytopenia Lymphopenia End stage renal disease on dialysis. Has a right upper arm dialysis fistula as Acces . Getting dialysis Sunday. morbid obesity Anemia / Jehova's witness CAD previous stent HTN- hypertensive urgency upon arrival to [facility]. s/p AVG DM 2 bilateral eye blindness h/o CHF Pacemaker Plan Patient extubated March 04, and remains extubated, now in MedSurg floor Patient positive for Covid 19 Per ID and pulmonary, Last dialyzed 03/11 next 03/13 EPO, thiamin and b6 Phos binders NGT feeding per consultants Remains full code at this time Subjective ROS Limited/Unobtainable: No Constitutional: Reports: malaise, weakness Objective Objective Last 24 Hour Vital Signs Date Time Temp Pulse Resp B/P (MAP) Pulse Ox O2 Delivery O2 Flow Rate FiO2 03/12/20 04:00 98.7 87 20 127/68 (87) 96 03/12/20 00:00 98.1 75 20 118/63 (81) 94 03/11/20 22:30 98.0 92 20 149/78 (101) 96 03/11/20 21:00 Room Air 03/11/20 20:00 97.8 82 20 149/78 (101) 96 03/11/20 19:33 95 Room Air 21 03/11/20 16:00 97.7 79 20 158/83 (108) 95 03/11/20 12:00 97.5 90 20 150/69 (96) 96 03/11/20 10:00 85 20 97 Room Air 21 Intake and Output 03/11/20 03/12/20 19:00 07:00 Intake Total 867 ml 480 ml Output Total 3000 ml Balance 867 ml -2520 ml Intake Free Water 200 ml 200 ml IV Total 212 ml Tube Feeding 455 ml 280 ml Hemodialysis UF 3000 ml Laboratory Tests 03/12/20 05:30: White Blood Count 12.2H, Red Blood Count 4.04L, Hemoglobin 9.6L, Hematocrit 30.8L, Mean Corpuscular Volume 76L, Mean Corpuscular Hemoglobin 23.8L, Mean Corpuscular Hemoglobin Concent 31.2L, Red Cell Distribution Width 16.3H, Platelet Count 307, Mean Platelet Volume 5.7L, Neutrophils (%) (Auto) , Lymphocytes (%) (Auto) , Monocytes (%) (Auto) , Eosinophils (%) (Auto) , Basophils (%) (Auto) , Neutrophils % (Manual) [Pending], Lymphocytes % (Manual) [Pending], Platelet Estimate [Pending], Platelet Morphology [Pending], Sodium Level 142, Potassium Level 3.7, Chloride Level 99, Carbon Dioxide Level 35H, Anion Gap 8, Blood Urea Nitrogen 40H, Creatinine 6.2H, Estimat Glomerular Filtration Rate 8.2, Glucose Level 170H, Calcium Level 9.8, Total Creatine Kinase 67 Height (Feet): 5 Height (Inches): 7.00 Weight (Pounds): 228 General Appearance: no apparent distress, lethargic Cardiovascular: normal rate Respiratory/Chest: decreased breath sounds Abdomen: distended Objective No change Bryan Hunter MD Mar 12, 2020 09:20
[2020-03-12] MEDS ORDERED: Omnipaque-300 100ml vial INJ PRN (10:15)
[2020-03-12] MEDS: Pyridoxine 50mg tab NG SCH (10:38)
[2020-03-12] MEDS: Heparin 5000 units/ml inj SUBQ SCH ×2 (10:38→21:42)
[2020-03-12] MEDS: Pantoprazole Inj IVP SCH ×2 (10:39→21:38)
[2020-03-12 12:00] VITALS: BP 116/65
--- NOTE | 2020-03-12 12:07 | NUR ---
NURSE NOTES: called son, Jair Frias, received consent for ct scan with contrast. consent witnessed by two nurses.
[2020-03-12] MEDS: Thiamine HCl 100 MG in D5W 55 ML IVPB SCH (13:07)
--- NOTE | 2020-03-12 15:22 | NUR ---
CASE MANAGEMENT:REVIEW SI;~~COVID-19 PNA~~ BACTEREMIA (GPC). ESRD on HD. CHF. 98.7 87 20 128/69 94% ON RA WBC 12.2 CO2 35 BG 170 IS;MEROPENEM IV Q24 HRS NORVASC NGT QD DAPTOMYCIN IV Q48 HRS THIAMINE IV Q24 HRS PROTONX IV Q12 HRS VIT B6 NGT QD HEPARIN SUBQ Q12 HRS MED SURG STATUS DCP;FROM AMAN ORTIZ
[2020-03-12] MEDS: LORazepam Inj 2mg/ml 1ml IV PRN (15:30)
[2020-03-12 16:00] VITALS: BP 123/64
[2020-03-12] MEDS ORDERED: Meropenem 500 MG in NS 55 ML IVPB SCH (16:30)
--- NOTE | 2020-03-12 16:46 | Cardiology Progress Note ---
Assessment/Plan Assessment/Plan 1. Respiratory failure. 2. History of obesity hypoventilation syndrome. 3. History of pulmonary hypertension previously. 4. Urinary tract infection. 5. covid 19 infection confimred 6. pneumonia. 7. History of bacteremia with Staph epi recently on 02/05/2020. 8. somnolence i did not examine pt personally i did not feel the risk to me personally are worth the limited information that could be obtained while pt is not communicative and on a vent with confirmed covid 19 now off tele sat normal off oxygen no cough no fever no diarrhea has bacteremia multiple different orgaism?? source per ID all labs reviewed wbcstill up no fever dialysis Subjective Subjective per rn confused in restraints has ng tube and Tyler , tolerating feeding not pulling out ngt Objective Last 24 Hour Vital Signs Date Time Temp Pulse Resp B/P (MAP) Pulse Ox O2 Delivery O2 Flow Rate FiO2 03/12/20 12:00 98.2 70 19 116/65 (82) 97 03/12/20 10:39 80 128/69 03/12/20 09:00 Room Air 03/12/20 08:00 98.8 82 20 128/69 (88) 98 03/12/20 04:00 98.7 87 20 127/68 (87) 96 03/12/20 00:00 98.1 75 20 118/63 (81) 94 03/11/20 22:30 98.0 92 20 149/78 (101) 96 03/11/20 21:00 Room Air 03/11/20 20:00 97.8 82 20 149/78 (101) 96 03/11/20 19:33 95 Room Air 21 General Appearance: no apparent distress, patient on isolation, isolation precautions Intake and Output 03/11/20 03/12/20 19:00 07:00 Intake Total 867 ml 480 ml Output Total 3000 ml Balance 867 ml -2520 ml Intake Free Water 200 ml 200 ml IV Total 212 ml Tube Feeding 455 ml 280 ml Hemodialysis UF 3000 ml Laboratory Tests Test 03/12/20 05:30 White Blood Count 12.2 K/UL (4.8-10.8) H Red Blood Count 4.04 M/UL (4.20-5.40) L Hemoglobin 9.6 G/DL (12.0-16.0) L Hematocrit 30.8 % (37.0-47.0) L Mean Corpuscular Volume 76 FL (80-99) L Mean Corpuscular Hemoglobin 23.8 PG (27.0-31.0) L Mean Corpuscular Hemoglobin Concent 31.2 G/DL (32.0-36.0) L Red Cell Distribution Width 16.3 % (11.6-14.8) H Platelet Count 307 K/UL (150-450) Mean Platelet Volume 5.7 FL (6.5-10.1) L Neutrophils (%) (Auto) % (45.0-75.0) Lymphocytes (%) (Auto) % (20.0-45.0) Monocytes (%) (Auto) % (1.0-10.0) Eosinophils (%) (Auto) % (0.0-3.0) Basophils (%) (Auto) % (0.0-2.0) Differential Total Cells Counted 100 Neutrophils % (Manual) 74 % (45-75) Lymphocytes % (Manual) 12 % (20-45) L Monocytes % (Manual) 9 % (1-10) Eosinophils % (Manual) 5 % (0-3) H Basophils % (Manual) 0 % (0-2) Band Neutrophils 0 % (0-8) Platelet Estimate Adequate Platelet Morphology Normal Hypochromasia 2+ Microcytosis 2+ Sodium Level 142 MMOL/L (136-145) Potassium Level 3.7 MMOL/L (3.5-5.1) Chloride Level 99 MMOL/L (98-107) Carbon Dioxide Level 35 MMOL/L (21-32) H Anion Gap 8 mmol/L (5-15) Blood Urea Nitrogen 40 mg/dL (7-18) H Creatinine 6.2 MG/DL (0.55-1.30) H Estimat Glomerular Filtration Rate 8.2 mL/min (>60) Glucose Level 170 MG/DL (74-106) H Calcium Level 9.8 MG/DL (8.5-10.1) Total Creatine Kinase 67 U/L (26-308) Microbiology Date/Time Source Procedure Growth Status 03/10/20 13:30 Blood Blood Culture - Preliminary Strep Species, Gamma-Hemolytic Staphylococcus Sp Coag Neg Resulted 03/10/20 13:20 Blood Blood Culture - Preliminary Gram Negative Lexx Staphylococcus Sp Coag Neg Strep Species, Gamma-Hemolytic Resulted 03/09/20 20:15 Urine,Clean Catch Urine Culture - Preliminary Strep Species, Gamma-Hemolytic Resulted Wilfredo Reyna MD Mar 12, 2020 16:46
--- NOTE | 2020-03-12 17:59 | Consultation ---
DATE OF CONSULTATION: 03/12/2020 CONSULTING PHYSICIAN: Jamison Garcia MD. CHIEF COMPLAINT: Dysphagia, abdominal pain. HISTORY OF PRESENT ILLNESS: Most of the history per chart. The patient is a poor historian. The patient is known to me from last admission in September 2019, evaluation of abdominal pain, it seems that the patient has chronic abdominal pain, chronic anemia, end-stage renal disease, on hemodialysis with associated anemia, admitted to the hospital at this time with shortness of breath. Since then, she has been diagnosed with COVID-19 positive. Currently, the patient is getting feeding through an NG tube and getting hemodialysis. GI consult was requested for further evaluation. PAST MEDICAL HISTORY: 1. Diabetes. 2. End-stage renal disease, on hemodialysis. 3. Chronic anemia. 4. Obesity. 5. Gastritis. 6. Kidney stones. 7. Abdominal hernia. 8. Hiatal hernia. 9. Cardiomegaly. 10. Hypercholesterolemia. 11. Hypertension. 12. Bilateral eye blindness. 13. Coronary artery disease and cardiac stent placement. 14. History of EtOH and cocaine abuse in the past. PAST SURGICAL HISTORY: 1. Hysterectomy. 2. Pacemaker placement. ALLERGIES: No known drug allergies. MEDICATIONS: Please see medication reconciliation list. SOCIAL HISTORY: Currently lives in a senior care. No recent history of tobacco, alcohol, or IV drug use, but the patient apparently had prior history of alcohol and cocaine use. FAMILY HISTORY: Noncontributory. REVIEW OF SYSTEMS: Unable to obtain. PHYSICAL EXAMINATION: VITAL SIGNS: Temperature 98.7, pulse 87, respirations 20, blood pressure 127/68. HEENT: Normocephalic and atraumatic. Mild pale conjunctivae. NECK: Supple. No evidence of obvious lymphadenopathy. CARDIOVASCULAR: Regular rhythm. Plus S1, S2. Pacemaker in place. LUNGS: Decreased breath sounds bilaterally and diffusely based on supine exam. ABDOMEN: Soft and nontender. No rebound. No guarding. No peritoneal sign. EXTREMITIES: No cyanosis. No clubbing. No edema. LABORATORY DATA: White count is 12, hemoglobin 9, hematocrit 30, platelet count is 307,000. Sodium 142, potassium 3.7, BUN is 40, creatinine 6.2. ASSESSMENT AND PLAN: This is a 64-year-old female with numerous medical problems as dictated above, admitted to the hospital with shortness of breath, positive for COVID-19. At this time, from a GI standpoint, the patient has stable hemoglobin and hematocrit for her condition, which is most probably anemia secondary to renal disease. Last endoscopy in 2018 showed evidence of gastritis. There is no evidence of any active GI bleeding, so we are going to hold off any plans for GI procedures. In terms of nutrition, the patient is getting NG tube feeding of nutrient Nepro Renal tube feeding at 35 mL/hour and is tolerating it. Apparently talking to the nurse, the patient is going for abdominal CT, which we will follow. Otherwise, continue monitoring labs. Continue tube feeding. Consider PEG if needed and when the patient is cleared from COVID-19 standpoint. I want to thank Dr. Roderick Hennign for this kind referral. Jamison Garcia M.D. DR: REBEKA JOB#: [id number] CC: Roderick Henning DO
--- NOTE | 2020-03-12 19:23 | NUR ---
HAND-OFF: Report given to Neil.
--- NOTE | 2020-03-12 19:35 | NUR ---
NURSE NOTES: Pt. received from NATHALIA Patel. Pt. awake, alert to name, breathing is even and unlabored, no indications of pain at this time. Bilateral soft wrist restraints currently on, movement intact, pulses palpable. NG tube in right nare intact, running nepro at 35cc/hr. PICC noted in left UA, saline locked. Bed is low and locked, side rails x2 up, bed alarm active and call light is in reach. Will continue to monitor.
[2020-03-12 20:00] VITALS: BP 114/81
[2020-03-12] MEDS ORDERED: Epoetin Alfa-EPBX(ESRD on dialysis)10,000 unit/ml vial SUBQ SCH (21:00)
[2020-03-12] MEDS: Dyna-Hex 2% Top Sol 2oz TOPIC SCH (21:37)
[2020-03-13] VITALS: BP 152/72
[2020-03-13] MEDS: Renvela 800mg Pkt NG SCH ×5 (00:18→23:32)
[2020-03-13] MEDS: NovoLOG Insulin Flexpen SUBQ SCH ×5 (00:27→23:40)
[2020-03-13 04:00] VITALS: BP 154/90
[2020-03-13 05:53] LABS: ANION GAP 11 mmol/L (5-15); BLOOD UREA NITROGEN 56 mg/dL (7-18); CARBON DIOXIDE 33 MMOL/L (21-32); CHLORIDE 97 MMOL/L (98-107); CREATININE 7.5 MG/DL (0.55-1.30); POTASSIUM 4.8 MMOL/L (3.5-5.1); SODIUM 140 MMOL/L (136-145)
[2020-03-13 06:09] LABS: BASOPHILS % (AUTO) 0.9 % (0.0-2.0); EOSINOPHILS % (AUTO) 3.1 % (0.0-3.0); HEMATOCRIT 32.9 % (37.0-47.0); HEMOGLOBIN 10.4 G/DL (12.0-16.0); LYMPHOCYTES % (AUTO) 19.5 % (20.0-45.0); MEAN CORPUSCULAR VOLUME 75 FL (80-99); NEUTROPHILS % (AUTO) 63.5 % (45.0-75.0); PLATELET COUNT 309 K/UL (150-450); RED BLOOD COUNT 4.39 M/UL (4.20-5.40); RED CELL DISTRIBUTION WIDTH 15.9 % (11.6-14.8); WHITE BLOOD COUNT 12.9 K/UL (4.8-10.8)
--- NOTE | 2020-03-13 07:43 | NUR ---
HAND-OFF: Report given to NATHALIA Chawla.
--- NOTE | 2020-03-13 07:44 | General Progress Note ---
Assessment/Plan Status: unchanged Assessment/Plan: 1. Diabetes. 2. End-stage renal disease, on hemodialysis. 3. Chronic anemia. 4. Obesity. 5. Gastritis. 6. Kidney stones. 7. Abdominal hernia. 8. Hiatal hernia. 9. Cardiomegaly. 10. Hypercholesterolemia. 11. Hypertension. 12. Bilateral eye blindness. 13. Coronary artery disease and cardiac stent placement. 14. History of EtOH and cocaine abuse in the past. 15. Dysphagia NGTF fu abd CT repeat labs on COVID isolation may need PEG Subjective ROS Limited/Unobtainable: No Allergies: Coded Allergies: NO KNOWN ALLERGIES (Unverified Allergy, Unknown, 10/15/15) Objective Last 24 Hour Vital Signs Date Time Temp Pulse Resp B/P (MAP) Pulse Ox O2 Delivery O2 Flow Rate FiO2 03/13/20 04:00 97.2 78 24 154/90 (111) 98 03/13/20 00:00 97.3 75 20 152/72 (98) 95 03/12/20 21:00 Room Air 03/12/20 20:00 97.5 83 22 114/81 (92) 94 03/12/20 16:00 98.6 78 20 123/64 (83) 98 03/12/20 12:00 98.2 70 19 116/65 (82) 97 03/12/20 10:39 80 128/69 03/12/20 09:00 Room Air 03/12/20 08:00 98.8 82 20 128/69 (88) 98 Intake and Output 03/12/20 03/13/20 19:00 07:00 Intake Total 35 ml 135 ml Balance 35 ml 135 ml Intake Free Water 100 ml Tube Feeding 35 ml 35 ml Laboratory Tests 03/13/20 04:25: White Blood Count 12.9H, Red Blood Count 4.39, Hemoglobin 10.4L, Hematocrit 32.9L, Mean Corpuscular Volume 75L, Mean Corpuscular Hemoglobin 23.6L, Mean Corpuscular Hemoglobin Concent 31.5L, Red Cell Distribution Width 15.9H, Platelet Count 309, Mean Platelet Volume 5.7L, Neutrophils (%) (Auto) 63.5, Lymphocytes (%) (Auto) 19.5L, Monocytes (%) (Auto) 13.0H, Eosinophils (%) (Auto ) 3.1H, Basophils (%) (Auto) 0.9, Sodium Level 140, Potassium Level 4.8, Chloride Level 97L, Carbon Dioxide Level 33H, Anion Gap 11, Blood Urea Nitrogen 56H, Creatinine 7.5H, Estimat Glomerular Filtration Rate 6.7, Glucose Level 149H , Calcium Level 10.0 Height (Feet): 5 Height (Inches): 7.00 Weight (Pounds): 218 General Appearance: no apparent distress EENT: normal ENT inspection Neck: supple Cardiovascular: normal rate Respiratory/Chest: decreased breath sounds Abdomen: normal bowel sounds, non tender, soft Extremities: non-tender Jamison Garcia MD Mar 13, 2020 07:44
--- NOTE | 2020-03-13 07:50 | NUR ---
NURSE NOTES: Received pt from NATHALIA Connolly. pt was resting, no acute distress, call light w/in reach.
[2020-03-13 08:00] VITALS: BP 136/70
--- NOTE | 2020-03-13 08:19 | Pulmonology Progress Note ---
Assessment/Plan Assessment/Plan ASSESSMENT COVID 19 pneumonia -confirmed Acute respiratory failure requiring intubation, secondary to COVID 19 infection , status post self extubation Persistent GP bacteremia with recurrent fevers -presumed ? SBE ESRD, on HD Diabetes mellitus Hypertension Pacemaker Jehovah witness Obesity hypoventilation syndrome Anemia PLAN of CARE [facility] floor s/p self extubated ABG stable, pulse ox OK O2 HHN PRN fup CXR noted, IV Vanco for 6-week for SBE as per ID recs BCX 03/09 + VFRE, CoNS BCX 03/10 + VFRE, CoNS due to persistent + BCX and failure of vanco, changed to Dapto as per ID recs , BCX 03/11 NGTD bacteremia likely 2 to endovascular source ( AV shunt infection or endocarditis ) still in isolation as per ID, need test to dc isolation unclear if done ? Echo from [facility] w/out evidence of vegetation ( per cardio patient at high risk to have CLAY ) UCX with Candice - likely colonizer -per ID s/p Plaquenil and azithromycin for 5 days influenza screen NGT HD as per nephro with close monitoring of volumes and renal parameters correct lytes as needed DVT, GI prophylaxis case discussed and evaluated by supervising physician Subjective Allergies: Coded Allergies: NO KNOWN ALLERGIES (Unverified Allergy, Unknown, 10/15/15) Subjective no signs of resp distress remains in isolation, Objective Last 24 Hour Vital Signs Date Time Temp Pulse Resp B/P (MAP) Pulse Ox O2 Delivery O2 Flow Rate FiO2 03/13/20 08:01 Room Air 03/13/20 04:00 97.2 78 24 154/90 (111) 98 03/13/20 00:00 97.3 75 20 152/72 (98) 95 03/12/20 21:00 Room Air 03/12/20 20:00 97.5 83 22 114/81 (92) 94 03/12/20 16:00 98.6 78 20 123/64 (83) 98 03/12/20 12:00 98.2 70 19 116/65 (82) 97 03/12/20 10:39 80 128/69 03/12/20 09:00 Room Air Intake and Output 03/12/20 03/13/20 19:00 07:00 Intake Total 35 ml 135 ml Balance 35 ml 135 ml Intake Free Water 100 ml Tube Feeding 35 ml 35 ml General Appearance: no acute distress, other - morbidly obese AA female HEENT: normocephalic, atraumatic Respiratory/Chest: decreased breath sounds Cardiovascular: normal rate, other - LUE PICC intact Abdomen: normal bowel sounds, soft, non tender - obese Extremities: other - trace edema BLE, RUE AV shunt + bruit/thrill Neurologic/Psychiatric: abnormal gait, alert, responsive Musculoskeletal: atrophy - BLE Microbiology Date/Time Source Procedure Growth Status 03/11/20 16:20 Blood Blood Culture - Preliminary NO GROWTH AFTER 24 HOURS Resulted 03/11/20 16:20 Blood Blood Culture - Preliminary NO GROWTH AFTER 24 HOURS Resulted 03/10/20 13:30 Blood Blood Culture - Final Enterococcus Faecalis - Vre Staphylococcus Sp Coag Neg Complete 03/10/20 13:20 Blood Blood Culture - Preliminary Proteus Mirabilis Staphylococcus Sp Coag Neg Enterococcus Faecalis - Vre Resulted Laboratory Tests 03/13/20 04:25: White Blood Count 12.9H, Red Blood Count 4.39, Hemoglobin 10.4L, Hematocrit 32.9L, Mean Corpuscular Volume 75L, Mean Corpuscular Hemoglobin 23.6L, Mean Corpuscular Hemoglobin Concent 31.5L, Red Cell Distribution Width 15.9H, Platelet Count 309, Mean Platelet Volume 5.7L, Neutrophils (%) (Auto) 63.5, Lymphocytes (%) (Auto) 19.5L, Monocytes (%) (Auto) 13.0H, Eosinophils (%) (Auto ) 3.1H, Basophils (%) (Auto) 0.9, Sodium Level 140, Potassium Level 4.8, Chloride Level 97L, Carbon Dioxide Level 33H, Anion Gap 11, Blood Urea Nitrogen 56H, Creatinine 7.5H, Estimat Glomerular Filtration Rate 6.7, Glucose Level 149H , Calcium Level 10.0 Current Medications Medications (Trade) Dose Ordered Sig/Josi Route PRN Reason Start Time Stop Time Status Last Admin Dose Admin Acetaminophen (Tylenol) 650 mg Q4H PRN GT fever 03/10/20 23:45 04/07/20 23:39 Albuterol/ Ipratropium (Combivent Respimat) 1 puff Q4H PRN INH Shortness of Breath 03/10/20 23:45 04/07/20 23:40 Amlodipine Besylate (Norvasc) 2.5 mg DAILY NG 03/12/20 09:00 04/11/20 08:59 03/12/20 10:39 Atorvastatin Calcium (Lipitor) 10 mg BEDTIME NG 03/11/20 21:00 05/25/20 20:59 03/12/20 21:37 Barium Sulfate (Readi-Cat 2) 450 ml NOW PRN ORAL Radiology Procedure 03/11/20 14:15 03/13/20 14:13 Barium Sulfate (Readi-Cat 2) 450 ml NOW PRN ORAL Radiology Procedure 03/11/20 15:15 03/13/20 15:12 Barium Sulfate (Readi-Cat 2) 450 ml NOW PRN ORAL Radiology Procedure 03/12/20 10:15 03/14/20 10:10 Chlorhexidine Gluconate (Jenny-Hex 2%) 1 applic DAILY@2000 TOPIC 03/11/20 20:00 06/06/20 19:59 03/12/20 21:37 Daptomycin 800 mg/ Sodium Chloride 55 ml @ 100 mls/hr Q48H IV 03/11/20 17:00 03/18/20 16:59 03/11/20 17:21 Epoetin Jose De Jesus (Epoetin Jose De Jesus(ESRD on dialysis)) 10,000 unit SUN-SUN-SUN SUBQ 03/12/20 21:00 06/01/20 20:59 03/12/20 21:38 Heparin Sodium (Porcine) (Heparin 5000 units/ml) 5,000 units EVERY 12 HOURS SUBQ 03/11/20 09:00 04/10/20 08:59 03/12/20 21:42 Insulin Aspart (NovoLOG) Q6HR SUBQ 03/11/20 00:00 05/20/20 12:29 03/13/20 06:58 Iohexol (OMNIPAQUE-300 100ml) 100 ml ONCE PRN INJ radiology 03/11/20 14:15 03/13/20 14:14 Iohexol (OMNIPAQUE-300 100ml) 100 ml PRN PRN INJ Radiology Procedure 03/12/20 10:15 03/14/20 10:10 Lorazepam (Ativan 2mg/ml 1ml) 2 mg Q2H PRN IV For Anxiety 03/11/20 00:00 03/16/20 00:00 03/12/20 15:30 Meropenem 500 mg/ Sodium Chloride 55 ml @ 110 mls/hr Q24H IVPB 03/12/20 16:30 03/17/20 16:29 03/12/20 15:56 Ondansetron HCl (Zofran) 4 mg Q6H PRN IVP Nausea & Vomiting 03/11/20 00:30 03/26/20 06:29 Pantoprazole (Protonix) 40 mg Q12HR IVP 03/11/20 09:00 03/26/20 08:59 03/12/20 21:38 Pyridoxine HCl (Vitamin B6) 50 mg DAILY NG 03/11/20 09:00 03/26/20 08:59 03/12/20 10:38 Sevelamer Carbonate (Renvela) 800 mg Q6HR NG 03/11/20 00:00 05/25/20 11:59 03/13/20 06:57 Thiamine HCl 100 mg/Dextrose 56 ml @ 112 mls/hr Q24H IVPB 03/11/20 12:00 03/26/20 11:59 03/12/20 13:07 Chastity Velasco ECONOMIC DEVELOPMENT COORDINATOR Mar 13, 2020 08:19
[2020-03-13] MEDS: Pyridoxine 50mg tab NG SCH ×3 (08:55→09:00)
[2020-03-13] MEDS: Pantoprazole Inj IVP SCH ×2 (08:55→21:55)
[2020-03-13] MEDS: Heparin 5000 units/ml inj SUBQ SCH ×2 (08:56→21:00)
--- NOTE | 2020-03-13 08:57 | General Progress Note ---
Assessment/Plan Problem List: (1) Obesity (BMI 30-39.9) ICD Codes: E66.9 - Obesity, unspecified SNOMED: 527579629, 254059354 (2) COVID-19 virus infection ICD Codes: U07.1 - COVID-19 SNOMED: 581046091 (3) Acute respiratory failure ICD Codes: J96.00 - Acute respiratory failure, unspecified whether with hypoxia or hypercapnia SNOMED: 09909890 (4) Blindness of both eyes ICD Codes: H54.0 - Blindness SNOMED: 155932052 (5) ESRD (end stage renal disease) on dialysis ICD Codes: N18.6 - End stage renal disease; Z99.2 - Dependence on renal dialysis SNOMED: 735177733 (6) Anemia ICD Codes: D64.9 - Anemia, unspecified SNOMED: 003010277 (7) Diabetes ICD Codes: E11.9 - Type 2 diabetes mellitus without complications SNOMED: 78481809 (8) AMS (altered mental status) ICD Codes: R41.82 - Altered mental status, unspecified SNOMED: 339723638 Status: unchanged Assessment/Plan: vent abx dialysis cbc bmp am ltach eval Subjective Constitutional: Reports: weakness Allergies: Coded Allergies: NO KNOWN ALLERGIES (Unverified Allergy, Unknown, 10/15/15) All Systems: reviewed and negative except above Subjective ng lethargic sleepy Objective Last 24 Hour Vital Signs Date Time Temp Pulse Resp B/P (MAP) Pulse Ox O2 Delivery O2 Flow Rate FiO2 03/13/20 08:01 Room Air 03/13/20 04:00 97.2 78 24 154/90 (111) 98 03/13/20 00:00 97.3 75 20 152/72 (98) 95 03/12/20 21:00 Room Air 03/12/20 20:00 97.5 83 22 114/81 (92) 94 03/12/20 16:00 98.6 78 20 123/64 (83) 98 03/12/20 12:00 98.2 70 19 116/65 (82) 97 03/12/20 10:39 80 128/69 03/12/20 09:00 Room Air Intake and Output 03/12/20 03/13/20 19:00 07:00 Intake Total 35 ml 135 ml Balance 35 ml 135 ml Intake Free Water 100 ml Tube Feeding 35 ml 35 ml Laboratory Tests 03/13/20 04:25: White Blood Count 12.9H, Red Blood Count 4.39, Hemoglobin 10.4L, Hematocrit 32.9L, Mean Corpuscular Volume 75L, Mean Corpuscular Hemoglobin 23.6L, Mean Corpuscular Hemoglobin Concent 31.5L, Red Cell Distribution Width 15.9H, Platelet Count 309, Mean Platelet Volume 5.7L, Neutrophils (%) (Auto) 63.5, Lymphocytes (%) (Auto) 19.5L, Monocytes (%) (Auto) 13.0H, Eosinophils (%) (Auto ) 3.1H, Basophils (%) (Auto) 0.9, Sodium Level 140, Potassium Level 4.8, Chloride Level 97L, Carbon Dioxide Level 33H, Anion Gap 11, Blood Urea Nitrogen 56H, Creatinine 7.5H, Estimat Glomerular Filtration Rate 6.7, Glucose Level 149H , Calcium Level 10.0 Height (Feet): 5 Height (Inches): 7.00 Weight (Pounds): 218 General Appearance: lethargic EENT: normal ENT inspection Neck: normal alignment Cardiovascular: normal rate, regular rhythm Respiratory/Chest: no respiratory distress, no accessory muscle use Extremities: normal inspection Skin: normal pigmentation Roderick Henning DO Mar 13, 2020 08:57
--- NOTE | 2020-03-13 10:26 | Infectious Diseases Prog Note ---
Assessment/Plan Assessment/Plan The patient is a 64-year-old female with Persistent/recurrent GPC bacteremia (despite 6 weeks of treatment)- highgly suspicious for endovascular source (ie AVF infection, endocarditis) 03/09 Bcx 02/27 GPC, 03/10 Bcx 02/27 GPC Confirmed COVID-19. SARS-CoV PCR positive. Pneumonia Mild leukocytosis, improvnig -03/09 u/a wbc 40-60, nit neg, leuk +3 Fever, recurrent, SP VDRF- sp self extubation 03/05, now on at RA - likely 2/2 COVID, less likely active bacterial superinfection since pt just completed empiric course of antibacterial therapy and sputum cx NG -03/07 CXR: Persistent vascular congestion and suspected interstitial edema.Cardiomegaly with pacer. - 03/01 CXR: Worsening bilateral hazy parenchymal infiltrates, versus edema - 02/20 CXR: Mild pulmonary vascular congestion with subtle bilateral haziness, not significantly changed.Possible tiny pleural effusions. Cardiomegaly. - Bcx ngtd - sp cx normal gui Less likely UTI u/a wbc tnct, nit +, leuk +3; ucx cindy(colonizer) Hx of positive blood culture CONS ,persistent; recurrent 02/04 BCx: CoNS 01/30 Bc: (1/2)CoNS and Citrobacter 01/27 , 02/01 Bc: CoNS - (outside facility, # of the +ve cultures are not clear) A 2D echo from outside facility did not show any evidence of vegetation as per Carido pt is high risk for CLAY: ( last admission ) Diabetes. CHF. ESRD. Hypertension. Obesity. 03/08 SP PICC Line placement PLAN: Continue Meropenem #2 and Daptomycin #2 03/12/20 SP IV Vancomycin #2 03/08 SP vancomycin, day # ? 42 ( will Rx for probable SBE) 02/27 SP plaquenil+azithromycin #5 02/25 SP Ertapenem #8 02/24 DC amikacin #6 Monitor CBC. Monitor BMP. Monitor cultures (blood, Sp ) COVID19 isolation; repeat test to determine if can come out of isolation CT C/abd/p w/ to eval for occult abscess 2d Echo CPK will need WBC scan to eval for AVF infection JAE RN Subjective Allergies: Coded Allergies: NO KNOWN ALLERGIES (Unverified Allergy, Unknown, 10/15/15) Subjective Afebrile Satting well on RA Objective Vital Signs Last 24 Hour Vital Signs Date Time Temp Pulse Resp B/P (MAP) Pulse Ox O2 Delivery O2 Flow Rate FiO2 03/13/20 08:01 Room Air 03/13/20 04:00 97.2 78 24 154/90 (111) 98 03/13/20 00:00 97.3 75 20 152/72 (98) 95 03/12/20 21:00 Room Air 03/12/20 20:00 97.5 83 22 114/81 (92) 94 03/12/20 16:00 98.6 78 20 123/64 (83) 98 03/12/20 12:00 98.2 70 19 116/65 (82) 97 03/12/20 10:39 80 128/69 Height (Feet): 5 Height (Inches): 7.00 Weight (Pounds): 218 Objective Unable to examine due lack of available PPE Microbiology Date/Time Source Procedure Growth Status 03/11/20 16:20 Blood Blood Culture - Preliminary Resulted 03/11/20 16:20 Blood Blood Culture - Preliminary Resulted 03/10/20 13:30 Blood Blood Culture - Final Enterococcus Faecalis - Vre Staphylococcus Sp Coag Neg Complete 03/10/20 13:20 Blood Blood Culture - Preliminary Proteus Mirabilis Staphylococcus Sp Coag Neg Enterococcus Faecalis - Vre Resulted 03/11/20 16:20 Nasopharynx Coronavirus COVID-19 PCR ([facility]) - Final Complete Laboratory Tests Test 03/13/20 04:25 White Blood Count 12.9 K/UL (4.8-10.8) H Red Blood Count 4.39 M/UL (4.20-5.40) Hemoglobin 10.4 G/DL (12.0-16.0) L Hematocrit 32.9 % (37.0-47.0) L Mean Corpuscular Volume 75 FL (80-99) L Mean Corpuscular Hemoglobin 23.6 PG (27.0-31.0) L Mean Corpuscular Hemoglobin Concent 31.5 G/DL (32.0-36.0) L Red Cell Distribution Width 15.9 % (11.6-14.8) H Platelet Count 309 K/UL (150-450) Mean Platelet Volume 5.7 FL (6.5-10.1) L Neutrophils (%) (Auto) 63.5 % (45.0-75.0) Lymphocytes (%) (Auto) 19.5 % (20.0-45.0) L Monocytes (%) (Auto) 13.0 % (1.0-10.0) H Eosinophils (%) (Auto) 3.1 % (0.0-3.0) H Basophils (%) (Auto) 0.9 % (0.0-2.0) Sodium Level 140 MMOL/L (136-145) Potassium Level 4.8 MMOL/L (3.5-5.1) Chloride Level 97 MMOL/L (98-107) L Carbon Dioxide Level 33 MMOL/L (21-32) H Anion Gap 11 mmol/L (5-15) Blood Urea Nitrogen 56 mg/dL (7-18) H Creatinine 7.5 MG/DL (0.55-1.30) H Estimat Glomerular Filtration Rate 6.7 mL/min (>60) Glucose Level 149 MG/DL (74-106) H Calcium Level 10.0 MG/DL (8.5-10.1) Current Medications Medications (Trade) Dose Ordered Sig/Josi Route PRN Reason Start Time Stop Time Status Last Admin Dose Admin Acetaminophen (Tylenol) 650 mg Q4H PRN GT fever 03/10/20 23:45 04/07/20 23:39 Albuterol/ Ipratropium (Combivent Respimat) 1 puff Q4H PRN INH Shortness of Breath 03/10/20 23:45 04/07/20 23:40 Amlodipine Besylate (Norvasc) 2.5 mg DAILY NG 03/12/20 09:00 04/11/20 08:59 03/12/20 10:39 Atorvastatin Calcium (Lipitor) 10 mg BEDTIME NG 03/11/20 21:00 05/25/20 20:59 03/12/20 21:37 Barium Sulfate (Readi-Cat 2) 450 ml NOW PRN ORAL Radiology Procedure 03/11/20 14:15 03/13/20 14:13 Barium Sulfate (Readi-Cat 2) 450 ml NOW PRN ORAL Radiology Procedure 03/11/20 15:15 03/13/20 15:12 Barium Sulfate (Readi-Cat 2) 450 ml NOW PRN ORAL Radiology Procedure 03/12/20 10:15 03/14/20 10:10 Chlorhexidine Gluconate (Jenny-Hex 2%) 1 applic DAILY@2000 TOPIC 03/11/20 20:00 06/06/20 19:59 03/12/20 21:37 Daptomycin 800 mg/ Sodium Chloride 55 ml @ 100 mls/hr Q48H IV 03/11/20 17:00 03/18/20 16:59 03/11/20 17:21 Epoetin Jose De Jesus (Epoetin Jose De Jesus(ESRD on dialysis)) 10,000 unit SUN-SUN-SUN SUBQ 03/12/20 21:00 06/01/20 20:59 03/12/20 21:38 Heparin Sodium (Porcine) (Heparin 5000 units/ml) 5,000 units EVERY 12 HOURS SUBQ 03/11/20 09:00 04/10/20 08:59 03/12/20 21:42 Insulin Aspart (NovoLOG) Q6HR SUBQ 03/11/20 00:00 05/20/20 12:29 03/13/20 06:58 Iohexol (OMNIPAQUE-300 100ml) 100 ml ONCE PRN INJ radiology 03/11/20 14:15 03/13/20 14:14 Iohexol (OMNIPAQUE-300 100ml) 100 ml PRN PRN INJ Radiology Procedure 03/12/20 10:15 03/14/20 10:10 Lorazepam (Ativan 2mg/ml 1ml) 2 mg Q2H PRN IV For Anxiety 03/11/20 00:00 03/16/20 00:00 03/12/20 15:30 Meropenem 500 mg/ Sodium Chloride 55 ml @ 110 mls/hr Q24H IVPB 03/12/20 16:30 03/17/20 16:29 03/12/20 15:56 Ondansetron HCl (Zofran) 4 mg Q6H PRN IVP Nausea & Vomiting 03/11/20 00:30 03/26/20 06:29 Pantoprazole (Protonix) 40 mg Q12HR IVP 03/11/20 09:00 03/26/20 08:59 03/13/20 08:55 Pyridoxine HCl (Vitamin B6) 50 mg DAILY NG 03/11/20 09:00 03/26/20 08:59 03/12/20 10:38 Sevelamer Carbonate (Renvela) 800 mg Q6HR NG 03/11/20 00:00 05/25/20 11:59 03/13/20 06:57 Thiamine HCl 100 mg/Dextrose 56 ml @ 112 mls/hr Q24H IVPB 03/11/20 12:00 03/26/20 11:59 03/12/20 13:07 Jimmy Mane MD Mar 13, 2020 10:25
--- NOTE | 2020-03-13 11:28 | Nephrology Progress Note ---
Assessment/Plan Problem List: (1) Acute respiratory failure (2) ESRD (end stage renal disease) on dialysis (3) UTI (urinary tract infection) (4) Patient is Faith (5) Pacemaker (6) Diabetes (7) Obesity (BMI 30-39.9) Assessment ARDS (adult respiratory distress syndrome) Fever Sepsis UTI (urinary tract infection) Respiratory failure, intubated on ventilator Thrombocytopenia Lymphopenia End stage renal disease on dialysis. Has a right upper arm dialysis fistula as Acces . Getting dialysis Sunday. morbid obesity Anemia / Jehova's witness CAD previous stent HTN- hypertensive urgency upon arrival to [facility]. s/p AVG DM 2 bilateral eye blindness h/o CHF Pacemaker Plan Patient extubated March 04, and remains extubated, now in MedSurg floor Patient positive for Covid 19 Per ID and pulmonary, Last dialyzed 03/11 next 03/13 EPO, thiamin and b6 Phos binders NGT feeding per consultants Remains full code at this time Subjective ROS Limited/Unobtainable: No Constitutional: Reports: malaise, weakness Objective Objective Last 24 Hour Vital Signs Date Time Temp Pulse Resp B/P (MAP) Pulse Ox O2 Delivery O2 Flow Rate FiO2 03/13/20 08:01 Room Air 03/13/20 08:00 97.2 75 18 136/70 (92) 100 03/13/20 04:00 97.2 78 24 154/90 (111) 98 03/13/20 00:00 97.3 75 20 152/72 (98) 95 03/12/20 21:00 Room Air 03/12/20 20:00 97.5 83 22 114/81 (92) 94 03/12/20 16:00 98.6 78 20 123/64 (83) 98 03/12/20 12:00 98.2 70 19 116/65 (82) 97 Intake and Output 03/12/20 03/13/20 19:00 07:00 Intake Total 35 ml 135 ml Balance 35 ml 135 ml Intake Free Water 100 ml Tube Feeding 35 ml 35 ml Laboratory Tests 03/13/20 04:25: White Blood Count 12.9H, Red Blood Count 4.39, Hemoglobin 10.4L, Hematocrit 32.9L, Mean Corpuscular Volume 75L, Mean Corpuscular Hemoglobin 23.6L, Mean Corpuscular Hemoglobin Concent 31.5L, Red Cell Distribution Width 15.9H, Platelet Count 309, Mean Platelet Volume 5.7L, Neutrophils (%) (Auto) 63.5, Lymphocytes (%) (Auto) 19.5L, Monocytes (%) (Auto) 13.0H, Eosinophils (%) (Auto ) 3.1H, Basophils (%) (Auto) 0.9, Sodium Level 140, Potassium Level 4.8, Chloride Level 97L, Carbon Dioxide Level 33H, Anion Gap 11, Blood Urea Nitrogen 56H, Creatinine 7.5H, Estimat Glomerular Filtration Rate 6.7, Glucose Level 149H , Calcium Level 10.0 Height (Feet): 5 Height (Inches): 7.00 Weight (Pounds): 218 General Appearance: no apparent distress Cardiovascular: normal rate Respiratory/Chest: decreased breath sounds Abdomen: soft, distended Objective No change Bryan Hunter MD Mar 13, 2020 11:28
[2020-03-13 12:00] VITALS: BP 139/75
[2020-03-13 12:06] LABS: ALANINE AMINOTRANSFERASE 30 U/L (12-78); ALBUMIN 3.6 G/DL (3.4-5.0); ALKALINE PHOSPHATASE 250 U/L (46-116); ASPARTATE AMINO TRANSFERASE 34 U/L (15-37); BILIRUBIN,DIRECT 0.2 MG/DL (0.0-0.3); BILIRUBIN,TOTAL 0.8 MG/DL (0.2-1.0); PHOSPHORUS 4.1 MG/DL (2.5-4.9)
[2020-03-13] MEDS: Thiamine HCl 100 MG in D5W 55 ML IVPB SCH ×2 (12:31→22:09)
--- NOTE | 2020-03-13 14:00 | NUR ---
Pt pulled out NG tube reported Dr. Caceres. received order for reinsert
--- NOTE | 2020-03-13 16:02 | Cardiology Progress Note ---
Assessment/Plan Assessment/Plan 1. Respiratory failure. 2. History of obesity hypoventilation syndrome. 3. History of pulmonary hypertension previously. 4. Urinary tract infection. 5. covid 19 infection confimred 6. pneumonia. 7. History of bacteremia with Staph epi recently on 02/05/2020. 8. somnolence 9. Polymicrobial bacteremia i did not examine pt personally i did not feel the risk to me personally are worth the limited information that could be obtained while pt is not communicative and on a vent with confirmed covid 19 now off tele sat normal off oxygen no cough no fever no diarrhea has bacteremia polymicrobial ? source per ID all labs reviewed wbc still up no fever dialysis covid neg from 03/11 Subjective ROS Limited/Unobtainable: Yes Subjective per rn confused in restraints has ng tube and Tyler , tolerating feeding not pulling out ngt Objective Last 24 Hour Vital Signs Date Time Temp Pulse Resp B/P (MAP) Pulse Ox O2 Delivery O2 Flow Rate FiO2 03/13/20 12:00 98.2 78 18 139/75 (96) 100 03/13/20 08:01 Room Air 03/13/20 08:00 97.2 75 18 136/70 (92) 100 03/13/20 04:00 97.2 78 24 154/90 (111) 98 03/13/20 00:00 97.3 75 20 152/72 (98) 95 03/12/20 21:00 Room Air 03/12/20 20:00 97.5 83 22 114/81 (92) 94 03/12/20 16:00 98.6 78 20 123/64 (83) 98 Intake and Output 03/12/20 03/13/20 19:00 07:00 Intake Total 35 ml 135 ml Balance 35 ml 135 ml Intake Free Water 100 ml Tube Feeding 35 ml 35 ml Laboratory Tests Test 03/13/20 04:25 White Blood Count 12.9 K/UL (4.8-10.8) H Red Blood Count 4.39 M/UL (4.20-5.40) Hemoglobin 10.4 G/DL (12.0-16.0) L Hematocrit 32.9 % (37.0-47.0) L Mean Corpuscular Volume 75 FL (80-99) L Mean Corpuscular Hemoglobin 23.6 PG (27.0-31.0) L Mean Corpuscular Hemoglobin Concent 31.5 G/DL (32.0-36.0) L Red Cell Distribution Width 15.9 % (11.6-14.8) H Platelet Count 309 K/UL (150-450) Mean Platelet Volume 5.7 FL (6.5-10.1) L Neutrophils (%) (Auto) 63.5 % (45.0-75.0) Lymphocytes (%) (Auto) 19.5 % (20.0-45.0) L Monocytes (%) (Auto) 13.0 % (1.0-10.0) H Eosinophils (%) (Auto) 3.1 % (0.0-3.0) H Basophils (%) (Auto) 0.9 % (0.0-2.0) Sodium Level 140 MMOL/L (136-145) Potassium Level 4.8 MMOL/L (3.5-5.1) Chloride Level 97 MMOL/L (98-107) L Carbon Dioxide Level 33 MMOL/L (21-32) H Anion Gap 11 mmol/L (5-15) Blood Urea Nitrogen 56 mg/dL (7-18) H Creatinine 7.5 MG/DL (0.55-1.30) H Estimat Glomerular Filtration Rate 6.7 mL/min (>60) Glucose Level 149 MG/DL (74-106) H Calcium Level 10.0 MG/DL (8.5-10.1) Phosphorus Level 4.1 MG/DL (2.5-4.9) Total Bilirubin 0.8 MG/DL (0.2-1.0) Direct Bilirubin 0.2 MG/DL (0.0-0.3) Aspartate Amino Transf (AST/SGOT) 34 U/L (15-37) Alanine Aminotransferase (ALT/SGPT) 30 U/L (12-78) Alkaline Phosphatase 250 U/L (46-116) H Total Protein 9.0 G/DL (6.4-8.2) H Albumin 3.6 G/DL (3.4-5.0) Microbiology Date/Time Source Procedure Growth Status 03/11/20 16:20 Blood Blood Culture - Preliminary Resulted 03/11/20 16:20 Blood Blood Culture - Preliminary Resulted 03/11/20 16:20 Nasopharynx Coronavirus COVID-19 PCR ([facility]) - Final Complete Wilfredo Reyna MD Mar 13, 2020 16:02
[2020-03-13] MEDS ORDERED: Cathflo Alteplase 2mg Inj INJ SCH (16:15)
[2020-03-13] MEDS: LORazepam Inj 2mg/ml 1ml IV PRN ×2 (16:16→22:16)
[2020-03-13] MEDS: NS IV SCH ×2 (17:00→21:56)
[2020-03-13] MEDS: DAPTOMYCIN IV SCH ×2 (17:00→21:56)
[2020-03-13] MEDS ORDERED: NS IV SCH (19:00)
[2020-03-13] MEDS ORDERED: DAPTOMYCIN IV SCH (19:00)
[2020-03-13 20:00] VITALS: BP 152/74
--- NOTE | 2020-03-13 20:09 | NUR ---
HAND-OFF: Report given to NATHALIA Cassidy, reinserted NG tube.PICC line still doesn't work after [place]. endorsed to next shift
--- NOTE | 2020-03-13 20:19 | NUR ---
NURSE NOTES: unable to infuse antibiotic due to PICC line doesn't work
--- NOTE | 2020-03-13 20:24 | NUR ---
NURSE NOTES: Pt. received from NATHALIA Chawla. Pt. awake, on room air. Bilateral soft wrist restraints in place and skin under the restraints intact. NG tube was out. Morning nurse and I attempted insert again. Awaiting for xray abd. PICC ALEXIS not working noted and [place]ito tried by nurse. Bed locked, lowest position, alarm on, side rails up, call light within reach. Will continue to monitor. Addendum: 03/13/20 at 2037 by CHRISTIAN MEJIAS RN RN NURSE NOTES: Wound pic was not taken from morning nurse.
[2020-03-13] MEDS ORDERED: Meropenem 500 MG in NS 55 ML IVPB SCH (20:30)
--- NOTE | 2020-03-13 20:51 | NUR ---
NURSE NOTES: Xray taken and confirmed NGT right in place. Addendum: 03/13/20 at 2051 by CHRISTIAN MEJIAS RN RN NURSE NOTES: small electric engine technician came for CT chest, abd and pelvis but couldn't take it. Pt was moving a lot and fighting.
--- NOTE | 2020-03-13 20:55 | Diagnostic Imaging Report ---
EXAM: XR Abdomen, 2 Views CLINICAL HISTORY: NGT TECHNIQUE: Frontal view of the abdomen/pelvis with upright view of the abdomen. COMPARISON: 03/08/2020 IMPRESSION: Feeding tube terminates in the distal stomach.
[2020-03-13] MEDS: Dyna-Hex 2% Top Sol 2oz TOPIC SCH (21:55)
[2020-03-13] MEDS: Meropenem 500 MG in NS 55 ML IVPB SCH (21:57)
[2020-03-13] MEDS ORDERED: Thiamine HCl 100 MG in D5W 55 ML IVPB SCH (22:00)
--- NOTE | 2020-03-13 22:00 | NUR ---
NURSE NOTES: NGT feeding resumed. HOB elevated. Will continue to monitor.l
[2020-03-14] VITALS: BP 150/92
--- NOTE | 2020-03-14 01:00 | NUR ---
NURSE NOTES: school bus technician unable to come and take CT. Said they are busy.
[2020-03-14 04:00] VITALS: BP 110/75
[2020-03-14] MEDS: Renvela 800mg Pkt NG SCH ×3 (05:39→17:56)
[2020-03-14] MEDS: NovoLOG Insulin Flexpen SUBQ SCH ×3 (05:47→18:25)
--- NOTE | 2020-03-14 06:22 | NUR ---
NURSE NOTES: Spoke with radiology for CT scan and said available around 8 or 9am this morning. Will contact AM nurse.
--- NOTE | 2020-03-14 07:00 | NUR ---
NURSE NOTES: PT RESTLESS IN BED, MOANING. NGT MOVING SLIGHTLY DUE TO PT MOVING FOREHEAD. RN STABILIZED NGT WITH STERI-STRIPS. NGT IS AT 67CM.TUBE FEEDING STOPPED DUE TO PENDING CT C/A/P TODAY. RESIDUAL OF 30ML NOTED. PER REPORT, PICC LINE BOTH LUMENS OCCLUDED. CATH-KE WAS ATTEMPTED YESTERDAY BUT UNSUCCESSFUL. RN ATTEMPTED TO FLUSH BOTH LUMENS BUT UNABLE TO FLUSH AT ALL. RN LEFT MESSAGE FOR DR LAN. PER DR LAN, ASK DR BARAKAT. RN LEFT MESSAGE FOR DR BARAKAT.
--- NOTE | 2020-03-14 07:05 | NUR ---
HAND-OFF: Report given to NATHALIA Lion.
[2020-03-14 07:55] VITALS: BP 137/64
--- NOTE | 2020-03-14 08:00 | NUR ---
NURSE NOTES: PT VERY RESTLESS, SHAKES HEAD VIGOROUSLY WHEN TOUCHED. BILATERAL SOFT WRIST RESTRAINTS ON BOTH WRISTS. NO SWELLING NOTED. PERIPHERAL PULSES PALPABLE AND NO SKIN ISSUES SURROUNDING RESTRAINTS. BED IN LOWEST POSITION WITH BEDSIDE RAILS X3 RAISED. PT IN HIGH MCCONNELL'S POSITION. WILL CONTINUE TO MONITOR.
[2020-03-14] MEDS: Pyridoxine 50mg tab NG SCH (08:07)
[2020-03-14] MEDS: Pantoprazole Inj IVP SCH ×2 (08:08→21:09)
[2020-03-14] MEDS: LORazepam Inj 2mg/ml 1ml IV PRN ×3 (08:08→17:56)
[2020-03-14] MEDS: Heparin 5000 units/ml inj SUBQ SCH ×2 (08:09→21:10)
--- NOTE | 2020-03-14 08:37 | Pulmonology Progress Note ---
Assessment/Plan Assessment/Plan ASSESSMENT COVID 19 pneumonia -confirmed Acute respiratory failure requiring intubation, secondary to COVID 19 infection , status post self extubation Persistent GP bacteremia with recurrent fevers -presumed ? SBE ESRD, on HD Diabetes mellitus Hypertension Pacemaker Jehovah witness Obesity hypoventilation syndrome Anemia PLAN of CARE MS floor s/p self extubated ABG stable, pulse ox OK O2 HHN PRN fup CXR noted, CT chest pending IV Vanco for 6-week for possible SBE as per ID recs ID also recommends WBC scan to evaluate for possible AVF infection BCX 03/09 + VFRE, CoNS BCX 03/10 + VFRE, CoNS due to persistent + BCX and failure of vanco, changed to Dapto as per ID recs , BCX 03/11 NGTD bacteremia likely 2 to endovascular source ( AV shunt infection or endocarditis ) still in isolation as per ID, need test to dc isolation unclear if done ? Echo from [facility] w/out evidence of vegetation ( per cardio patient at high risk to have CLAY ) UCX with Candice - likely colonizer -per ID s/p Plaquenil and azithromycin for 5 days influenza screen NGT 03/11 last ROSA CoV PCR NGT, probably can dc isolation -per ID NGT feeding asp precautions HD as per nephro with close monitoring of volumes and renal parameters correct lytes as needed DVT, GI prophylaxis case discussed and evaluated by supervising physician Subjective Allergies: Coded Allergies: NO KNOWN ALLERGIES (Unverified Allergy, Unknown, 10/15/15) Subjective no signs of resp distress remains in isolation, mild leukocytosis last ROSA CoV PCR 03/11 NGT Objective Last 24 Hour Vital Signs Date Time Temp Pulse Resp B/P (MAP) Pulse Ox O2 Delivery O2 Flow Rate FiO2 03/14/20 07:55 97.4 89 22 137/64 (88) 98 03/14/20 07:06 96 Room Air 21 03/14/20 04:00 98.1 84 20 110/75 (87) 95 03/14/20 00:00 97.9 90 20 150/92 (111) 93 03/13/20 21:00 Room Air 03/13/20 20:02 96 Room Air 21 03/13/20 20:00 96.3 75 24 152/74 (100) 96 03/13/20 12:00 98.2 78 18 139/75 (96) 100 Intake and Output 03/13/20 03/14/20 19:00 07:00 Intake Total 135 ml 515 ml Output Total 3000 ml 3000 ml Balance -2865 ml -2485 ml Intake Free Water 100 ml 200 ml Tube Feeding 35 ml 315 ml Hemodialysis UF 3000 ml 3000 ml Objective General Appearance: no acute distress, morbidly obese AA female HEENT: normocephalic, atraumatic Respiratory/Chest: decreased breath sounds Cardiovascular: normal rate, LUE PICC intact Abdomen: normal bowel sounds, soft, non tender , obese Extremities: trace edema BLE, RUE AV shunt + bruit/thrill Neurologic/Psychiatric: abnormal gait, alert, responsive Musculoskeletal: atrophy - BLE Microbiology Date/Time Source Procedure Growth Status 03/11/20 16:20 Blood Blood Culture - Preliminary Gram Positive Cocci Resulted 03/11/20 16:20 Blood Blood Culture - Preliminary Gram Positive Cocci Resulted 03/11/20 16:20 Nasopharynx Coronavirus COVID-19 PCR ([facility]) - Final Complete Current Medications Medications (Trade) Dose Ordered Sig/Josi Route PRN Reason Start Time Stop Time Status Last Admin Dose Admin Acetaminophen (Tylenol) 650 mg Q4H PRN GT fever 03/10/20 23:45 04/07/20 23:39 Albuterol/ Ipratropium (Combivent Respimat) 1 puff Q4H PRN INH Shortness of Breath 03/10/20 23:45 04/07/20 23:40 Amlodipine Besylate (Norvasc) 2.5 mg DAILY NG 03/12/20 09:00 04/11/20 08:59 03/12/20 10:39 Atorvastatin Calcium (Lipitor) 10 mg BEDTIME NG 03/11/20 21:00 05/25/20 20:59 03/13/20 21:55 Barium Sulfate (Readi-Cat 2) 450 ml NOW PRN ORAL Radiology Procedure 03/12/20 10:15 03/14/20 10:10 Chlorhexidine Gluconate (Jenny-Hex 2%) 1 applic DAILY@2000 TOPIC 03/11/20 20:00 06/06/20 19:59 03/13/20 21:55 Daptomycin 800 mg/ Sodium Chloride 55 ml @ 100 mls/hr Q48H IV 03/13/20 21:00 03/20/20 20:59 03/13/20 21:56 Epoetin Jose De Jesus (Epoetin Jose De Jesus(ESRD on dialysis)) 10,000 unit SUN-SUN-SUN SUBQ 03/12/20 21:00 06/01/20 20:59 03/12/20 21:38 Heparin Sodium (Porcine) (Heparin 5000 units/ml) 5,000 units EVERY 12 HOURS SUBQ 03/11/20 09:00 04/10/20 08:59 03/12/20 21:42 Insulin Aspart (NovoLOG) Q6HR SUBQ 03/11/20 00:00 05/20/20 12:29 03/14/20 05:47 Iohexol (OMNIPAQUE-300 100ml) 100 ml PRN PRN INJ Radiology Procedure 03/12/20 10:15 03/14/20 10:10 Lorazepam (Ativan 2mg/ml 1ml) 2 mg Q2H PRN IV For Anxiety 03/11/20 00:00 03/16/20 00:00 03/13/20 22:16 Meropenem 500 mg/ Sodium Chloride 55 ml @ 110 mls/hr Q24H IVPB 03/13/20 22:00 03/18/20 21:59 03/13/20 21:57 Ondansetron HCl (Zofran) 4 mg Q6H PRN IVP Nausea & Vomiting 03/11/20 00:30 03/26/20 06:29 Pantoprazole (Protonix) 40 mg Q12HR IVP 03/11/20 09:00 03/26/20 08:59 03/13/20 21:55 Pyridoxine HCl (Vitamin B6) 50 mg DAILY NG 03/11/20 09:00 03/26/20 08:59 03/12/20 10:38 Sevelamer Carbonate (Renvela) 800 mg Q6HR NG 03/11/20 00:00 05/25/20 11:59 03/14/20 05:39 Thiamine HCl 100 mg/Dextrose 56 ml @ 112 mls/hr Q24H IVPB 03/13/20 23:00 04/12/20 22:59 03/13/20 22:09 Chastity Velasco POUNCING LATHE OPERATOR Mar 14, 2020 08:37
--- NOTE | 2020-03-14 09:27 | General Progress Note ---
Assessment/Plan Problem List: (1) Obesity (BMI 30-39.9) ICD Codes: E66.9 - Obesity, unspecified SNOMED: 463395727, 711154421 (2) COVID-19 virus infection ICD Codes: U07.1 - COVID-19 SNOMED: 726221865 (3) Acute respiratory failure ICD Codes: J96.00 - Acute respiratory failure, unspecified whether with hypoxia or hypercapnia SNOMED: 52690537 (4) Blindness of both eyes ICD Codes: H54.0 - Blindness SNOMED: 879668810 (5) ESRD (end stage renal disease) on dialysis ICD Codes: N18.6 - End stage renal disease; Z99.2 - Dependence on renal dialysis SNOMED: 616343483 (6) Anemia ICD Codes: D64.9 - Anemia, unspecified SNOMED: 159215081 (7) Diabetes ICD Codes: E11.9 - Type 2 diabetes mellitus without complications SNOMED: 98851089 (8) AMS (altered mental status) ICD Codes: R41.82 - Altered mental status, unspecified SNOMED: 833165983 Status: unchanged Assessment/Plan: vent abx dialysis cbc bmp am ltach eval Subjective Constitutional: Reports: weakness Allergies: Coded Allergies: NO KNOWN ALLERGIES (Unverified Allergy, Unknown, 10/15/15) All Systems: reviewed and negative except above Subjective ng lethargic sleepy Objective Last 24 Hour Vital Signs Date Time Temp Pulse Resp B/P (MAP) Pulse Ox O2 Delivery O2 Flow Rate FiO2 03/14/20 08:07 89 137/64 03/14/20 07:55 97.4 89 22 137/64 (88) 98 03/14/20 07:06 96 Room Air 21 03/14/20 04:00 98.1 84 20 110/75 (87) 95 03/14/20 00:00 97.9 90 20 150/92 (111) 93 03/13/20 21:00 Room Air 03/13/20 20:02 96 Room Air 21 03/13/20 20:00 96.3 75 24 152/74 (100) 96 03/13/20 12:00 98.2 78 18 139/75 (96) 100 Intake and Output 03/13/20 03/14/20 19:00 07:00 Intake Total 135 ml 515 ml Output Total 3000 ml 3000 ml Balance -2865 ml -2485 ml Intake Free Water 100 ml 200 ml Tube Feeding 35 ml 315 ml Hemodialysis UF 3000 ml 3000 ml Height (Feet): 5 Height (Inches): 7.00 Weight (Pounds): 215 General Appearance: lethargic EENT: normal ENT inspection Neck: normal alignment Cardiovascular: normal rate, regular rhythm Respiratory/Chest: no respiratory distress, no accessory muscle use Extremities: normal inspection Skin: normal pigmentation Roderick Henning DO Mar 14, 2020 09:27
--- NOTE | 2020-03-14 10:13 | Nephrology Progress Note ---
Assessment/Plan Problem List: (1) Acute respiratory failure (2) ESRD (end stage renal disease) on dialysis (3) UTI (urinary tract infection) (4) Patient is Sabianist (5) Pacemaker (6) Diabetes (7) Obesity (BMI 30-39.9) Assessment ARDS (adult respiratory distress syndrome) Fever Sepsis UTI (urinary tract infection) Respiratory failure, intubated on ventilator Thrombocytopenia Lymphopenia End stage renal disease on dialysis. Has a right upper arm dialysis fistula as Acces . Getting dialysis Sunday. morbid obesity Anemia / Jehova's witness CAD previous stent HTN- hypertensive urgency upon arrival to [facility]. s/p AVG DM 2 bilateral eye blindness h/o CHF Pacemaker Plan Patient extubated March 04, and remains extubated, now in MedSurg floor Patient positive for Covid 19 Per ID and pulmonary, Last dialyzed 03/11 next 03/13 EPO, thiamin and b6 Phos binders NGT feeding per consultants Remains full code at this time Subjective ROS Limited/Unobtainable: No Constitutional: Reports: malaise Objective Objective Last 24 Hour Vital Signs Date Time Temp Pulse Resp B/P (MAP) Pulse Ox O2 Delivery O2 Flow Rate FiO2 03/14/20 08:07 89 137/64 03/14/20 07:55 97.4 89 22 137/64 (88) 98 03/14/20 07:06 96 Room Air 21 03/14/20 04:00 98.1 84 20 110/75 (87) 95 03/14/20 00:00 97.9 90 20 150/92 (111) 93 03/13/20 21:00 Room Air 03/13/20 20:02 96 Room Air 21 03/13/20 20:00 96.3 75 24 152/74 (100) 96 03/13/20 12:00 98.2 78 18 139/75 (96) 100 Intake and Output 03/13/20 03/14/20 19:00 07:00 Intake Total 135 ml 515 ml Output Total 3000 ml 3000 ml Balance -2865 ml -2485 ml Intake Free Water 100 ml 200 ml Tube Feeding 35 ml 315 ml Hemodialysis UF 3000 ml 3000 ml No labs today Height (Feet): 5 Height (Inches): 7.00 Weight (Pounds): 215 General Appearance: no apparent distress EENT: other - NGT in place Cardiovascular: tachycardia Respiratory/Chest: decreased breath sounds Abdomen: distended Objective No change Bryan Hunter MD Mar 14, 2020 10:13
--- NOTE | 2020-03-14 10:15 | NUR ---
NURSE NOTES: RN SPOKE TO LYNDON IN RADIOLOGY, REGARDING CT SCAN. PER LYNDON, THEY ARE WORKING WITH ER PTS AT THIS TIME. LYNDON WILL CALL RN WHEN THEY WILL BE READY TO TAKE PT. RN REQUESTED LYNDON CALL AT LEAST 30 MINUTES BEFORE ARRIVING DUE TO PT BEING RESTLESS AND COMBATIVE. RN CAN ADMINISTER ORDERED PRN ATIVAN FOR RESTLESSNESS BEFORE SCAN.
--- NOTE | 2020-03-14 11:35 | General Progress Note ---
Assessment/Plan Status: unchanged Assessment/Plan: 1. Diabetes. 2. End-stage renal disease, on hemodialysis. 3. Chronic anemia. 4. Obesity. 5. Gastritis. 6. Kidney stones. 7. Abdominal hernia. 8. Hiatal hernia. 9. Cardiomegaly. 10. Hypercholesterolemia. 11. Hypertension. 12. Bilateral eye blindness. 13. Coronary artery disease and cardiac stent placement. 14. History of EtOH and cocaine abuse in the past. 15. Dysphagia NGTF fu abd CT repeat labs on COVID isolation may need PEG Subjective ROS Limited/Unobtainable: No Allergies: Coded Allergies: NO KNOWN ALLERGIES (Unverified Allergy, Unknown, 10/15/15) Objective Last 24 Hour Vital Signs Date Time Temp Pulse Resp B/P (MAP) Pulse Ox O2 Delivery O2 Flow Rate FiO2 03/14/20 09:00 Room Air 03/14/20 08:07 89 137/64 03/14/20 07:55 97.4 89 22 137/64 (88) 98 03/14/20 07:06 96 Room Air 21 03/14/20 04:00 98.1 84 20 110/75 (87) 95 03/14/20 00:00 97.9 90 20 150/92 (111) 93 03/13/20 21:00 Room Air 03/13/20 20:02 96 Room Air 21 03/13/20 20:00 96.3 75 24 152/74 (100) 96 03/13/20 12:00 98.2 78 18 139/75 (96) 100 Intake and Output 03/13/20 03/14/20 19:00 07:00 Intake Total 135 ml 515 ml Output Total 3000 ml 3000 ml Balance -2865 ml -2485 ml Intake Free Water 100 ml 200 ml Tube Feeding 35 ml 315 ml Hemodialysis UF 3000 ml 3000 ml Height (Feet): 5 Height (Inches): 7.00 Weight (Pounds): 215 General Appearance: no apparent distress EENT: normal ENT inspection Neck: supple Cardiovascular: normal rate Respiratory/Chest: decreased breath sounds Abdomen: normal bowel sounds, non tender, soft Extremities: non-tender Jamison Garcia MD Mar 14, 2020 11:35
[2020-03-14 12:00] VITALS: BP 130/66
--- NOTE | 2020-03-14 14:46 | NUR ---
NURSE NOTES: PER DR BARAKAT, REMOVE PICC LINE AND ORDER FOR NEW INSERTION OF PICC. RN RECEIVED TELEPHONE CONSENT FROM SON, HARESH SINGER. WITNESSED BY RISSA SMART. CONSENT COMPLETED AND PLACED IN CHART.
--- NOTE | 2020-03-14 14:47 | NUR ---
NURSE NOTES: PER LYNDON IN RADIOLOGY, UNABLE TO DO CT SCAN TODAY AND WILL SCHEDULE FOR TOMORROW. RN RESUMED TUBE FEEDING.
--- NOTE | 2020-03-14 15:54 | Cardiology Progress Note ---
Assessment/Plan Assessment/Plan 1. Respiratory failure. 2. History of obesity hypoventilation syndrome. 3. History of pulmonary hypertension previously. 4. Urinary tract infection. 5. covid 19 infection confimred 6. pneumonia. 7. History of bacteremia with Staph epi recently on 02/05/2020. 8. somnolence 9. Polymicrobial bacteremia i did not examine pt personally with confirmed covid 19 now off tele sat normal off oxygen no cough no fever no diarrhea has bacteremia polymicrobial ? source per ID all labs reviewed wbc still up no fever dicne 03/05 despite all the bacteremia !! dialysis covid neg from 03/11 Subjective ROS Limited/Unobtainable: Yes Subjective per rn confused in restraints has ng tube and Tyler , tolerating feeding not pulling out ngt Objective Last 24 Hour Vital Signs Date Time Temp Pulse Resp B/P (MAP) Pulse Ox O2 Delivery O2 Flow Rate FiO2 03/14/20 12:00 97.8 93 21 130/66 (87) 98 03/14/20 09:00 Room Air 03/14/20 08:07 89 137/64 03/14/20 07:55 97.4 89 22 137/64 (88) 98 03/14/20 07:06 96 Room Air 21 03/14/20 04:00 98.1 84 20 110/75 (87) 95 03/14/20 00:00 97.9 90 20 150/92 (111) 93 03/13/20 21:00 Room Air 03/13/20 20:02 96 Room Air 21 03/13/20 20:00 96.3 75 24 152/74 (100) 96 General Appearance: no apparent distress, obese, patient on isolation, isolation precautions, other - ngt Intake and Output 03/13/20 03/14/20 19:00 07:00 Intake Total 135 ml 515 ml Output Total 3000 ml 3000 ml Balance -2865 ml -2485 ml Intake Free Water 100 ml 200 ml Tube Feeding 35 ml 315 ml Hemodialysis UF 3000 ml 3000 ml Microbiology Date/Time Source Procedure Growth Status 03/11/20 16:20 Blood Blood Culture - Preliminary Gram Positive Cocci Resulted 03/11/20 16:20 Blood Blood Culture - Preliminary Gram Positive Cocci Resulted 03/11/20 16:20 Nasopharynx Coronavirus COVID-19 PCR ([facility]) - Final Complete Wilfredo Reyna MD Mar 14, 2020 15:54
[2020-03-14 16:00] VITALS: BP 107/55
--- NOTE | 2020-03-14 19:33 | NUR ---
NURSE NOTES: Report received from Ayad SLOAN. Patient is awake and alert x 1. Patient does not appear to be in respiratory distress at this time, breathing on room air. Patient noted to have NG tube with Nepro running at 35 cc/hr which is the goal rate. Patient noted to be in bilateral soft wrist restraints due to patient pulling at lines. No order renewal needed at this time. Patient is currently on droplet precautions due to Covid 19 rule out. Endorsed to Sj SLOAN that patient had a two previous swabs. First swab was positive, second swab was negative, and third swab is currently pending. Endorsed to Sj SLOAN that patient had PICC line removed today. Endorsed that Patient is to receive new PICC line tomorrow, consent obtained and in chart. Bed locked, in lowest position, and locked. Will continue to follow plan of care.
--- NOTE | 2020-03-14 19:33 | NUR ---
HAND-OFF: Report given to Odilon RINCON RN.
[2020-03-14] MEDS: Dyna-Hex 2% Top Sol 2oz TOPIC SCH (19:59)
[2020-03-14 20:00] VITALS: BP 118/61
[2020-03-14] MEDS: Meropenem 500 MG in NS 55 ML IVPB SCH (21:09)
[2020-03-14] MEDS: Thiamine HCl 100 MG in D5W 55 ML IVPB SCH (22:10)
[2020-03-15] VITALS: BP 111/77
[2020-03-15] MEDS: NovoLOG Insulin Flexpen SUBQ SCH ×5 (00:01→23:29)
[2020-03-15] MEDS: LORazepam Inj 2mg/ml 1ml IV PRN ×4 (02:02→17:50)
[2020-03-15 04:00] VITALS: BP 125/81
[2020-03-15] MEDS: Renvela 800mg Pkt NG SCH ×5 (06:01→23:24)
--- NOTE | 2020-03-15 07:17 | NUR ---
HAND-OFF: Report given to Ayan SLOAN.
--- NOTE | 2020-03-15 07:48 | NUR ---
NURSE NOTES: Patient alert x1; on room air, no sign of distress and shortness of breath; no sing of chest pain; NG-tube in place Nephro at35, no residual; patient scheduled for CT Abd, NG tube not running at this time; bilateral restrain in place, good circulation; patient scheduled for PICC insertion, consent on file; side rials up x2, breaks engaged, bed at lowest position; call light within reach; will keep monitoring.
[2020-03-15 08:00] VITALS: BP_SYST 118; BP_SYST 121; BP_DIAS 61; BP_DIAS 70
--- NOTE | 2020-03-15 08:58 | General Progress Note ---
Assessment/Plan Problem List: (1) Obesity (BMI 30-39.9) ICD Codes: E66.9 - Obesity, unspecified SNOMED: 543222342, 396927461 (2) COVID-19 virus infection ICD Codes: U07.1 - COVID-19 SNOMED: 949928658 (3) Acute respiratory failure ICD Codes: J96.00 - Acute respiratory failure, unspecified whether with hypoxia or hypercapnia SNOMED: 55144757 (4) Blindness of both eyes ICD Codes: H54.0 - Blindness SNOMED: 813653569 (5) ESRD (end stage renal disease) on dialysis ICD Codes: N18.6 - End stage renal disease; Z99.2 - Dependence on renal dialysis SNOMED: 124072007 (6) Anemia ICD Codes: D64.9 - Anemia, unspecified SNOMED: 120369249 (7) Diabetes ICD Codes: E11.9 - Type 2 diabetes mellitus without complications SNOMED: 50594808 (8) AMS (altered mental status) ICD Codes: R41.82 - Altered mental status, unspecified SNOMED: 480587676 Status: unchanged Assessment/Plan: vent abx dialysis cbc bmp am ltach eval Subjective Constitutional: Reports: weakness Allergies: Coded Allergies: NO KNOWN ALLERGIES (Unverified Allergy, Unknown, 10/15/15) All Systems: reviewed and negative except above Subjective ng lethargic sleepy Objective Last 24 Hour Vital Signs Date Time Temp Pulse Resp B/P (MAP) Pulse Ox O2 Delivery O2 Flow Rate FiO2 03/15/20 04:00 98.0 79 20 125/81 (96) 95 03/15/20 00:00 97.8 78 20 111/77 (88) 96 03/14/20 21:00 Room Air 03/14/20 20:00 97.3 77 22 118/61 (80) 99 03/14/20 19:02 86 20 96 Room Air 21 03/14/20 19:01 95 Room Air 21 03/14/20 16:00 97.3 72 20 107/55 (72) 94 03/14/20 12:00 97.8 93 21 130/66 (87) 98 03/14/20 09:00 Room Air Intake and Output 03/14/20 03/15/20 19:00 07:00 Intake Total 400 ml 406 ml Balance 400 ml 406 ml Intake Free Water 90 ml 50 ml IV Total 111 ml Tube Feeding 210 ml 245 ml Blood Product 100 ml Height (Feet): 5 Height (Inches): 7.00 Weight (Pounds): 217 General Appearance: lethargic EENT: normal ENT inspection Neck: normal alignment Cardiovascular: normal rate, regular rhythm Respiratory/Chest: no respiratory distress, no accessory muscle use Extremities: normal inspection Skin: normal pigmentation Roderick Henning DO Mar 15, 2020 08:58
[2020-03-15] MEDS: Heparin 5000 units/ml inj SUBQ SCH ×2 (09:00→22:12)
[2020-03-15] MEDS: Pantoprazole Inj IVP SCH ×2 (09:23→21:21)
[2020-03-15] MEDS: Pyridoxine 50mg tab NG SCH (09:23)
--- NOTE | 2020-03-15 09:27 | General Progress Note ---
Assessment/Plan Status: unchanged Assessment/Plan: 1. Diabetes. 2. End-stage renal disease, on hemodialysis. 3. Chronic anemia. 4. Obesity. 5. Gastritis. 6. Kidney stones. 7. Abdominal hernia. 8. Hiatal hernia. 9. Cardiomegaly. 10. Hypercholesterolemia. 11. Hypertension. 12. Bilateral eye blindness. 13. Coronary artery disease and cardiac stent placement. 14. History of EtOH and cocaine abuse in the past. 15. Dysphagia NGTF fu abd CT repeat labs COVID neg x1 swallow eval ordered pending PICC line restrained may need PEG Subjective ROS Limited/Unobtainable: No Allergies: Coded Allergies: NO KNOWN ALLERGIES (Unverified Allergy, Unknown, 10/15/15) Objective Last 24 Hour Vital Signs Date Time Temp Pulse Resp B/P (MAP) Pulse Ox O2 Delivery O2 Flow Rate FiO2 03/15/20 08:00 97.3 77 20 118/61 (80) 99 03/15/20 04:00 98.0 79 20 125/81 (96) 95 03/15/20 00:00 97.8 78 20 111/77 (88) 96 03/14/20 21:00 Room Air 03/14/20 20:00 97.3 77 22 118/61 (80) 99 03/14/20 19:02 86 20 96 Room Air 21 03/14/20 19:01 95 Room Air 21 03/14/20 16:00 97.3 72 20 107/55 (72) 94 03/14/20 12:00 97.8 93 21 130/66 (87) 98 Intake and Output 03/14/20 03/15/20 19:00 07:00 Intake Total 400 ml 406 ml Balance 400 ml 406 ml Intake Free Water 90 ml 50 ml IV Total 111 ml Tube Feeding 210 ml 245 ml Blood Product 100 ml Height (Feet): 5 Height (Inches): 7.00 Weight (Pounds): 217 General Appearance: no apparent distress EENT: PERRL/EOMI Neck: supple Cardiovascular: normal rate Respiratory/Chest: decreased breath sounds Abdomen: normal bowel sounds, non tender, soft Extremities: non-tender Jamison Garcia MD Mar 15, 2020 09:27
--- NOTE | 2020-03-15 10:11 | Nephrology Progress Note ---
Assessment/Plan Problem List: (1) Acute respiratory failure (2) ESRD (end stage renal disease) on dialysis (3) UTI (urinary tract infection) (4) Patient is Judaism (5) Pacemaker (6) Diabetes (7) Obesity (BMI 30-39.9) Assessment ARDS (adult respiratory distress syndrome) Fever Sepsis UTI (urinary tract infection) Respiratory failure, intubated on ventilator Thrombocytopenia Lymphopenia End stage renal disease on dialysis. Has a right upper arm dialysis fistula as Acces . Getting dialysis Sunday. morbid obesity Anemia / Jehova's witness CAD previous stent HTN- hypertensive urgency upon arrival to [facility]. s/p AVG DM 2 bilateral eye blindness h/o CHF Pacemaker Plan Patient extubated March 04, and remains extubated, now in MedSurg floor Patient positive for Covid 19 Per ID and pulmonary, Last dialyzed 03/13, next dialysis March 16 EPO, thiamin and b6 Phos binders NGT feeding per consultants Remains full code at this time Subjective ROS Limited/Unobtainable: No Constitutional: Reports: malaise, weakness Objective Objective Last 24 Hour Vital Signs Date Time Temp Pulse Resp B/P (MAP) Pulse Ox O2 Delivery O2 Flow Rate FiO2 03/15/20 09:23 77 118/61 03/15/20 08:00 97.3 77 20 118/61 (80) 99 03/15/20 04:00 98.0 79 20 125/81 (96) 95 03/15/20 00:00 97.8 78 20 111/77 (88) 96 03/14/20 21:00 Room Air 03/14/20 20:00 97.3 77 22 118/61 (80) 99 03/14/20 19:02 86 20 96 Room Air 21 03/14/20 19:01 95 Room Air 21 03/14/20 16:00 97.3 72 20 107/55 (72) 94 03/14/20 12:00 97.8 93 21 130/66 (87) 98 Intake and Output 03/14/20 03/15/20 19:00 07:00 Intake Total 400 ml 406 ml Balance 400 ml 406 ml Intake Free Water 90 ml 50 ml IV Total 111 ml Tube Feeding 210 ml 245 ml Blood Product 100 ml No blood drawn today Height (Feet): 5 Height (Inches): 7.00 Weight (Pounds): 217 General Appearance: no apparent distress Cardiovascular: normal rate Respiratory/Chest: decreased breath sounds Abdomen: distended Objective No change Bryan Hunter MD Mar 15, 2020 10:11
--- NOTE | 2020-03-15 11:11 | NUR ---
NURSE NOTES: Radiology department, Josep wants to get stronger medication to calm her down in order for them to insert the PICC line; I communicated the matter to MD Murillo, waiting for order.
--- NOTE | 2020-03-15 11:24 | NUR ---
RD ASSESSMENT & RECOMMENDATIONS SEE CARE ACTIVITY FOR COMPLETE ASSESSMENT DAILY ESTIMATED NEEDS: Needs based on obesity, pulmonary, HD, wound 78kg abw 20-25 kcals/kg [id number] total kcals 1.25-1.8 g protein/kg 98-140 g total protein per MD, pt on HD NUTRITION DIAGNOSIS: * Swallowing difficulty R/T respiratory status as evidenced by pt orally intubated, now s/p extubation, on NGT feeding. * Altered nutrition related lab values R/T ESRD as evidenced by elev creat (7.5), elev BNP (>89908), elev phos (6.0-> wnl). CURRENT TF:Nepro @ 35ml/hr x 24 hrs + Prosource 1pkt TID (Prosource out of stock at this time) PO DIET RECOMMENDATIONS: WHEN APPROPRIATE FOR ORAL DIET: RENAL + CCHO MED/ texture per COMMUNITY PLANNING TECHNICIAN ENTERAL NUTRITION RECOMMENDATIONS: Nepro @ 40ml/hr x 24 hrs + Prosource 1pkt BID to provide 960ml, 1728kcal, 78g +22g prot, 698ml free water * Increase goal rate to 40ml/hr x 24 hrs to better meet est kcal/prot needs * Once Prosource available, add BID for additional 22g prot (Currently Prosource out of stock) * HOB over 30 degrees/ water flush per MD. ADDITIONAL RECOMMENDATIONS: 1) Calibrated bedscale wt for accurate CBW- daily wts for ESRD dx 2) Add Nephrovite x 1 3) Monitor BGs closely, for hypoglycemia h/o frequent hypoglycemia during prev admissions 4) Monitor for COMMUNITY PLANNING TECHNICIAN eval and rec 5) Monitor lytes and renal fxn .
[2020-03-15 12:00] VITALS: BP 123/79
[2020-03-15] MEDS ORDERED: Lidocaine 1% Plain 30 ml INJ PRN (12:00)
[2020-03-15] MEDS ORDERED: Heparin1,000 units/500ml Premix(Conc:2 units/ml) IV PRN (12:00)
--- NOTE | 2020-03-15 12:04 | NUR ---
NURSE NOTES: Order received from MD Murillo; carried out order as given;
--- NOTE | 2020-03-15 12:10 | NUR ---
NURSE NOTES: Boom from radiology notified that I got an order for medication for this patient;
[2020-03-15] MEDS ORDERED: Morphine Sulfate 4mg/ml Inj (IV USE ONLY) IVP PRN (12:15)
--- NOTE | 2020-03-15 13:00 | NUR ---
ENVIRONMENTAL EDUCATOR order received BY DR. MUSTAFA and acknowledged for ENVIRONMENTAL EDUCATOR Bedside Swallow Evaluation. Chart reviewed, ENVIRONMENTAL EDUCATOR attempted to see the Pt at bedside. However, per RN Nora, Pt is NPO for procedure and no PO trials able to be given. TUBE FEEDINGS HAVE BEEN HELD FOR PROCEDURE. 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 PER CXR: 03/05 -Stable to minimally worsened bilateral interstitial and airspace infiltrates versus edema. ENVIRONMENTAL EDUCATOR plans to f/u tomorrow to evaluate Pt's swallowing safety and function and determine Pt's safest and least restrictive diet.
--- NOTE | 2020-03-15 13:30 | Pulmonology Progress Note ---
Assessment/Plan Problems: (1) Sepsis (2) Acute respiratory failure Assessment & Plan: extubated now (3) Accelerated hypertension (4) COVID-19 virus infection (5) ESRD (end stage renal disease) on dialysis (6) Morbid obesity (7) Patient is Sikhism (8) Diabetes Assessment/Plan still confused, with NG tube wbc still high improving still has NG tube on isolation afebrile in the last few days f/u cultures respiratory treatment Subjective ROS Limited/Unobtainable: No Constitutional: Reports: no symptoms HEENT: Repors: no symptoms Allergies: Coded Allergies: NO KNOWN ALLERGIES (Unverified Allergy, Unknown, 10/15/15) Objective Last 24 Hour Vital Signs Date Time Temp Pulse Resp B/P (MAP) Pulse Ox O2 Delivery O2 Flow Rate FiO2 03/15/20 12:00 98.1 63 18 123/79 (94) 96 03/15/20 09:23 77 118/61 03/15/20 09:00 Room Air 03/15/20 08:00 98.6 60 18 121/70 (87) 95 03/15/20 07:00 99 Room Air 21 03/15/20 04:00 98.0 79 20 125/81 (96) 95 03/15/20 00:00 97.8 78 20 111/77 (88) 96 03/14/20 21:00 Room Air 03/14/20 20:00 97.3 77 22 118/61 (80) 99 03/14/20 19:02 86 20 96 Room Air 21 03/14/20 19:01 95 Room Air 21 03/14/20 16:00 97.3 72 20 107/55 (72) 94 Intake and Output 03/14/20 03/15/20 19:00 07:00 Intake Total 400 ml 406 ml Balance 400 ml 406 ml Intake Free Water 90 ml 50 ml IV Total 111 ml Tube Feeding 210 ml 245 ml Blood Product 100 ml Objective has ng tube,confused Current Medications Medications (Trade) Dose Ordered Sig/Josi Route PRN Reason Start Time Stop Time Status Last Admin Dose Admin Acetaminophen (Tylenol) 650 mg Q4H PRN GT fever 03/10/20 23:45 04/07/20 23:39 Albuterol/ Ipratropium (Combivent Respimat) 1 puff Q4H PRN INH Shortness of Breath 03/10/20 23:45 04/07/20 23:40 Amlodipine Besylate (Norvasc) 2.5 mg DAILY NG 03/12/20 09:00 04/11/20 08:59 03/15/20 09:23 Atorvastatin Calcium (Lipitor) 10 mg BEDTIME NG 03/11/20 21:00 05/25/20 20:59 03/14/20 21:09 Chlorhexidine Gluconate (Jenny-Hex 2%) 1 applic DAILY@2000 TOPIC 03/14/20 20:00 06/12/20 19:59 Daptomycin 800 mg/ Sodium Chloride 55 ml @ 100 mls/hr Q48H IV 03/13/20 21:00 03/20/20 20:59 03/13/20 21:56 Epoetin Jose De Jesus (Epoetin Jose De Jesus(ESRD on dialysis)) 10,000 unit SUN-SUN-SUN SUBQ 03/12/20 21:00 06/01/20 20:59 03/12/20 21:38 Heparin Sodium (Porcine) (Heparin 5000 units/ml) 5,000 units EVERY 12 HOURS SUBQ 03/11/20 09:00 04/10/20 08:59 03/14/20 21:10 Heparin Sodium/ Sodium Chloride (Heparin 1000 units/500ml Premix) 1,000 unit ONCE PRN IV PICC LINE PLACEMENT 03/15/20 12:00 03/17/20 11:59 Insulin Aspart (NovoLOG) Q6HR SUBQ 03/11/20 00:00 05/20/20 12:29 03/15/20 12:31 Lidocaine HCl (Xylocaine 1% 30ml) 30 ml ONCE PRN INJ PICC LINE PLACEMENT 03/15/20 12:00 03/17/20 11:59 Lorazepam (Ativan 2mg/ml 1ml) 2 mg Q2H PRN IV For Anxiety 03/11/20 00:00 03/16/20 00:00 03/15/20 04:48 Meropenem 500 mg/ Sodium Chloride 55 ml @ 110 mls/hr Q24H IVPB 03/13/20 22:00 03/18/20 21:59 03/14/20 21:09 Morphine Sulfate (Morphine Sulfate) 4 mg Q6H PRN IVP For Pain 03/15/20 12:15 03/22/20 12:14 Ondansetron HCl (Zofran) 4 mg Q6H PRN IVP Nausea & Vomiting 03/11/20 00:30 03/26/20 06:29 Pantoprazole (Protonix) 40 mg Q12HR IVP 03/11/20 09:00 03/26/20 08:59 03/15/20 09:23 Pyridoxine HCl (Vitamin B6) 50 mg DAILY NG 03/11/20 09:00 03/26/20 08:59 03/15/20 09:23 Sevelamer Carbonate (Renvela) 800 mg Q6HR NG 03/11/20 00:00 05/25/20 11:59 03/15/20 12:17 Thiamine HCl 100 mg/Dextrose 56 ml @ 112 mls/hr Q24H IVPB 03/13/20 23:00 04/12/20 22:59 03/14/20 22:10 Meghana Murillo MD Mar 15, 2020 13:30
--- NOTE | 2020-03-15 14:36 | Infectious Diseases Prog Note ---
Assessment/Plan Assessment/Plan The patient is a 64-year-old female with Proteus and VRE bacteremia Persistent/recurrent GPC bacteremia (despite 6 weeks of treatment)- highgly suspicious for endovascular source (ie AVF infection, endocarditis) 03/09 Bcx 02/27 VRE, S. epi, 03/10 Bcx 02/27 P . mirabilis, probable amp-C; VRE, CONS; 03/11 Bcx 2/ sets S.epi Confirmed COVID-19. 02/19 SARS-CoV PCR positive. -1st repeat neg 03/11 Pneumonia Mild leukocytosis, improvnig -03/09 u/a wbc 40-60, nit neg, leuk +3 Fever, recurrent, SP VDRF- sp self extubation 03/05, now on at RA - likely 2/2 COVID, less likely active bacterial superinfection since pt just completed empiric course of antibacterial therapy and sputum cx NG -03/07 CXR: Persistent vascular congestion and suspected interstitial edema.Cardiomegaly with pacer. - 03/01 CXR: Worsening bilateral hazy parenchymal infiltrates, versus edema - 02/20 CXR: Mild pulmonary vascular congestion with subtle bilateral haziness, not significantly changed.Possible tiny pleural effusions. Cardiomegaly. - Bcx ngtd - sp cx normal gui Less likely UTI u/a wbc tnct, nit +, leuk +3; ucx cindy(colonizer) Hx of positive blood culture CONS ,persistent; recurrent 02/04 BCx: CoNS 01/30 Bc: (1/2)CoNS and Citrobacter 01/27 , 02/01 Bc: CoNS - (outside facility, # of the +ve cultures are not clear) A 2D echo from outside facility did not show any evidence of vegetation as per Carido pt is high risk for CLAY: ( last admission ) Diabetes. CHF. ESRD. Hypertension. Obesity. 03/08 SP PICC Line placement PLAN: Switch Meropenem #4 to Cefepime for Proteus bacteremia Daptomycin #4 for VRE and S.epi bacteremia 03/12/20 SP IV Vancomycin #2 03/08 SP vancomycin, day # ? ( will Rx for probable SBE) 02/27 SP plaquenil+azithromycin #5 / SP Ertapenem #8 02/24 DC amikacin #6 Monitor CBC. Monitor BMP. Monitor cultures (blood, Sp ) COVID19 isolation; f/u 3rd test (if 2 neg repeat test and remains afebrile, will discontinue isolation) CT C/abd/p w/ to eval for occult abscess 2d Echo- will likely need CLAY will need WBC scan to eval for AVF infection DW RN Subjective Allergies: Coded Allergies: NO KNOWN ALLERGIES (Unverified Allergy, Unknown, 10/15/15) Subjective afebrile persistently bacteremic at RA wbc improving Objective Vital Signs Last 24 Hour Vital Signs Date Time Temp Pulse Resp B/P (MAP) Pulse Ox O2 Delivery O2 Flow Rate FiO2 03/15/20 12:00 98.1 63 18 123/79 (94) 96 03/15/20 09:23 77 118/61 03/15/20 09:00 Room Air 03/15/20 08:00 98.6 60 18 121/70 (87) 95 03/15/20 07:00 99 Room Air 21 03/15/20 04:00 98.0 79 20 125/81 (96) 95 03/15/20 00:00 97.8 78 20 111/77 (88) 96 03/14/20 21:00 Room Air 03/14/20 20:00 97.3 77 22 118/61 (80) 99 03/14/20 19:02 86 20 96 Room Air 21 03/14/20 19:01 95 Room Air 21 03/14/20 16:00 97.3 72 20 107/55 (72) 94 Height (Feet): 5 Height (Inches): 7.00 Weight (Pounds): 217 Objective not seen to limit COVID19 exposure Current Medications Medications (Trade) Dose Ordered Sig/Josi Route PRN Reason Start Time Stop Time Status Last Admin Dose Admin Acetaminophen (Tylenol) 650 mg Q4H PRN GT fever 03/10/20 23:45 04/07/20 23:39 Albuterol/ Ipratropium (Combivent Respimat) 1 puff Q4H PRN INH Shortness of Breath 03/10/20 23:45 04/07/20 23:40 Amlodipine Besylate (Norvasc) 2.5 mg DAILY NG 03/12/20 09:00 04/11/20 08:59 03/15/20 09:23 Atorvastatin Calcium (Lipitor) 10 mg BEDTIME NG 03/11/20 21:00 6/30/20 20:59 03/14/20 21:09 Chlorhexidine Gluconate (Jenny-Hex 2%) 1 applic DAILY@2000 TOPIC 03/14/20 20:00 06/12/20 19:59 Daptomycin 800 mg/ Sodium Chloride 55 ml @ 100 mls/hr Q48H IV 03/13/20 21:00 03/20/20 20:59 03/13/20 21:56 Epoetin Jose De Jesus (Epoetin Jose De Jesus(ESRD on dialysis)) 10,000 unit SUN-SUN-SUN SUBQ 03/12/20 21:00 06/01/20 20:59 03/12/20 21:38 Heparin Sodium (Porcine) (Heparin 5000 units/ml) 5,000 units EVERY 12 HOURS SUBQ 03/11/20 09:00 04/10/20 08:59 03/14/20 21:10 Heparin Sodium/ Sodium Chloride (Heparin 1000 units/500ml Premix) 1,000 unit ONCE PRN IV PICC LINE PLACEMENT 03/15/20 12:00 03/17/20 11:59 Insulin Aspart (NovoLOG) Q6HR SUBQ 03/11/20 00:00 05/20/20 12:29 03/15/20 12:31 Lidocaine HCl (Xylocaine 1% 30ml) 30 ml ONCE PRN INJ PICC LINE PLACEMENT 03/15/20 12:00 03/17/20 11:59 Lorazepam (Ativan 2mg/ml 1ml) 2 mg Q2H PRN IV For Anxiety 03/11/20 00:00 03/16/20 00:00 03/15/20 04:48 Meropenem 500 mg/ Sodium Chloride 55 ml @ 110 mls/hr Q24H IVPB 03/13/20 22:00 03/18/20 21:59 03/14/20 21:09 Morphine Sulfate (Morphine Sulfate) 4 mg Q6H PRN IVP For Pain 03/15/20 12:15 03/22/20 12:14 Ondansetron HCl (Zofran) 4 mg Q6H PRN IVP Nausea & Vomiting 03/11/20 00:30 03/26/20 06:29 Pantoprazole (Protonix) 40 mg Q12HR IVP 03/11/20 09:00 03/26/20 08:59 03/15/20 09:23 Pyridoxine HCl (Vitamin B6) 50 mg DAILY NG 03/11/20 09:00 03/26/20 08:59 03/15/20 09:23 Sevelamer Carbonate (Renvela) 800 mg Q6HR NG 03/11/20 00:00 05/25/20 11:59 03/15/20 12:17 Thiamine HCl 100 mg/Dextrose 56 ml @ 112 mls/hr Q24H IVPB 03/13/20 23:00 04/12/20 22:59 03/14/20 22:10 Susi Vanegas M.D. Mar 15, 2020 14:36
--- NOTE | 2020-03-15 14:41 | NUR ---
NURSE NOTES: 2nd attempt to reach to Josep, radiology department; I spoke to Boom; Boom said he will communicated radiologies; waiting call back.
--- NOTE | 2020-03-15 15:48 | NUR ---
NURSE NOTES: Patient left the floor for PICC line insertion; Ativan 2 mg given prior to patient leaving the floor;
--- NOTE | 2020-03-15 16:24 | Brief Operative Note ---
Immediate Post Operative Note Operative Note Pre-op Diagnosis: needs long-term IV access Procedure: PICC Post-op Diagnosis: same as pre-op Surgeon: Wendy Robles Anesthesia: local Specimen: none Complications: none Condition: stable Fluids: none Implant(s) used?: No Bhanu Robles MD Mar 15, 2020 16:24
--- NOTE | 2020-03-15 16:52 | Diagnostic Imaging Report ---
Indications: Needs long-term IV access Technique: Ultrasound confirms patent compressible left basilic vein. Total sterile technique, including sterile probe cover and sterile gel, hat, mask, sterile gown, large sterile drape, and preparation with 2% chlorhexidine utilized. Local anesthesia with 1% lidocaine. Under real-time ultrasound guidance, puncture distal vein using 21-gauge needle, documented and archived, passage 0.018 guidewire under direct fluoroscopy, which was used to determine appropriate catheter length, exchange for 4 Nigerian peel-away sheath. 4 Nigerian Bard dual-lumen power PICC cut to 46 cm. It was inserted through the peel-away sheath. Peel-away sheath and guidewire removed. Catheter fixed to the skin. Both catheter ports aspirated and flushed. Patient tolerated procedure well, without immediate complication. Digital radiograph documents satisfactory catheter tip position, at the cavoatrial junction. Total fluoroscopy time 64 seconds. Total dose area product 0.2191 mGym2 Total number of images: 1 Impression: Successful placement of left arm PICC under sonographic and fluoroscopic guidance, as described above.
--- NOTE | 2020-03-15 16:54 | NUR ---
RADIOLOGY NOTE: LEFT UPPER EXTREMITY PICC LINE PLACED BY DR. EDEL OROSCO AT 1615 HRS. FA
--- NOTE | 2020-03-15 17:04 | NUR ---
CASE MANAGEMENT:REVIEW SI;PROTEUS AND VRE BACTEREMIA. PNA. COVID-19 POSITIVE. 98.6 79 20 125/81 95% ON RA NO LABS AVAILABLE IS;CEFEPIME IV QD THIAMINE IV QD MEROPENEM IV QD DAPTOMYCIN IV Q48 HRS NORVASC QD PROTONIX IV BID VIT B6 QD DUO NEB HHN Q4 HRS PRN PICC LINE INSERTION MED SURG STATUS DCP; FROM [place] [place] [facility] ~~~REPEAT COVID-19 ON 03/11/2020 - NOT DETECTED~~~
--- NOTE | 2020-03-15 18:41 | Cardiology Progress Note ---
Assessment/Plan Assessment/Plan 1. Respiratory failure. 2. History of obesity hypoventilation syndrome. 3. History of pulmonary hypertension previously. 4. Urinary tract infection. 5. covid 19 infection confimred 6. pneumonia. 7. History of bacteremia with Staph epi recently on 02/05/2020. 8. somnolence 9. Polymicrobial bacteremia i did not examine pt personally with confirmed covid 19 now off tele sat normal off oxygen no cough no fever no diarrhea has bacteremia polymicrobial ? source per ID all labs reviewed wbc still up no fever since 03/05 despite all the bacteremia !! dialysis covid neg from 03/11 new picc placed await ct of abd and pelvis Subjective ROS Limited/Unobtainable: Yes Subjective per rn confused in restraints has ng tube and Tyler , tolerating feeding not pulling out ngt Objective Last 24 Hour Vital Signs Date Time Temp Pulse Resp B/P (MAP) Pulse Ox O2 Delivery O2 Flow Rate FiO2 03/15/20 12:00 98.1 63 18 123/79 (94) 96 03/15/20 09:23 77 118/61 03/15/20 09:00 Room Air 03/15/20 08:00 98.6 60 18 121/70 (87) 95 03/15/20 07:00 99 Room Air 21 03/15/20 04:00 98.0 79 20 125/81 (96) 95 03/15/20 00:00 97.8 78 20 111/77 (88) 96 03/14/20 21:00 Room Air 03/14/20 20:00 97.3 77 22 118/61 (80) 99 03/14/20 19:02 86 20 96 Room Air 21 03/14/20 19:01 95 Room Air 21 Intake and Output 03/14/20 03/15/20 19:00 07:00 Intake Total 400 ml 406 ml Balance 400 ml 406 ml Intake Free Water 90 ml 50 ml IV Total 111 ml Tube Feeding 210 ml 245 ml Blood Product 100 ml Wilfredo Reyna MD Mar 15, 2020 18:41
--- NOTE | 2020-03-15 18:50 | NUR ---
NURSE NOTES: Blood culture drawn; NG tuber inserted; stat KUB ordered waiting for radiology; VIP spoke to [place], for Hemodialysis for 03/16/20;
[2020-03-15 19:26] LABS: ALANINE AMINOTRANSFERASE 30 U/L (12-78); ALBUMIN 3.1 G/DL (3.4-5.0); ALBUMIN/GLOBULIN RATIO 0.8 (1.0-2.7); ALKALINE PHOSPHATASE 193 U/L (46-116); ANION GAP 15 mmol/L (5-15); ASPARTATE AMINO TRANSFERASE 21 U/L (15-37); BILIRUBIN,TOTAL 0.8 MG/DL (0.2-1.0); BLOOD UREA NITROGEN 58 mg/dL (7-18); CALCIUM 8.3 MG/DL (8.5-10.1); CARBON DIOXIDE 28 MMOL/L (21-32); CHLORIDE 104 MMOL/L (98-107); CREATININE 7.5 MG/DL (0.55-1.30); POTASSIUM 3.8 MMOL/L (3.5-5.1); SODIUM 147 MMOL/L (136-145)
[2020-03-15 19:27] LABS: BASOPHILS % (AUTO) 1.1 % (0.0-2.0); EOSINOPHILS % (AUTO) 3.8 % (0.0-3.0); HEMATOCRIT 33.6 % (37.0-47.0); HEMOGLOBIN 9.9 G/DL (12.0-16.0); LYMPHOCYTES % (AUTO) 18.7 % (20.0-45.0); MEAN CORPUSCULAR VOLUME 79 FL (80-99); NEUTROPHILS % (AUTO) 62.3 % (45.0-75.0); PLATELET COUNT 275 K/UL (150-450); RED BLOOD COUNT 4.27 M/UL (4.20-5.40); RED CELL DISTRIBUTION WIDTH 19.1 % (11.6-14.8); WHITE BLOOD COUNT 10.2 K/UL (4.8-10.8)
--- NOTE | 2020-03-15 19:30 | NUR ---
NURSE NOTES: Patient awake in bed, restless, wanted to get drink some water. Discussed with patient the risks and benefits of NGT. Was reinserted by previous shift. Waiting for xray. With PICC on left upper arm double lumen cath, patent. Bed in lowest, lock engaged and alarm on. Will continue to plan of care.
--- NOTE | 2020-03-15 19:33 | NUR ---
HAND-OFF: Report given to NATHALIA Robbins.
--- NOTE | 2020-03-15 19:38 | Diagnostic Imaging Report ---
Chest 1 view History: NG tube placement Findings: NG tube in mid stomach. Mediastinum and heart are normal. Ribs are unremarkable. Impression: 1. No active disease. 2. Normal NG tube positioning in mid stomach.
[2020-03-15 20:00] VITALS: BP 87/56
[2020-03-15] MEDS: Dyna-Hex 2% Top Sol 2oz TOPIC SCH (21:20)
[2020-03-15] MEDS: DAPTOMYCIN IV SCH (21:51)
[2020-03-15] MEDS: Epoetin Alfa-EPBX(ESRD on dialysis)4000 units/ml vial SUBQ SCH (21:51)
[2020-03-15] MEDS: NS IV SCH (21:51)
[2020-03-15] MEDS: Cefepime HCl 500 MG in D5W 55 ML IVPB SCH (22:13)
[2020-03-15] MEDS: Thiamine HCl 100 MG in D5W 55 ML IVPB SCH (23:24)
[2020-03-16] VITALS (7 sets, daily range): BP systolic 92–192; BP diastolic 48–81
--- NOTE | 2020-03-16 05:00 | NUR ---
NURSE NOTES: Blood drawn from PICC. Given to Sirisha of lab.
[2020-03-16] MEDS: Renvela 800mg Pkt NG SCH ×4 (05:36→23:22)
[2020-03-16] MEDS: NovoLOG Insulin Flexpen SUBQ SCH ×4 (06:00→23:22)
--- NOTE | 2020-03-16 06:35 | NUR ---
NURSE NOTES: Patient pulled NGT. Attempted to re insert but patient was not cooperative. She was combative and spits on RNs while on attempt.
[2020-03-16 06:59] LABS: BASOPHILS % (AUTO) 0.7 % (0.0-2.0); EOSINOPHILS % (AUTO) 4.7 % (0.0-3.0); HEMATOCRIT 32.6 % (37.0-47.0); HEMOGLOBIN 9.9 G/DL (12.0-16.0); LYMPHOCYTES % (AUTO) 25.8 % (20.0-45.0); MEAN CORPUSCULAR VOLUME 77 FL (80-99); NEUTROPHILS % (AUTO) 56.8 % (45.0-75.0); PLATELET COUNT 272 K/UL (150-450); RED BLOOD COUNT 4.26 M/UL (4.20-5.40); WHITE BLOOD COUNT 9.5 K/UL (4.8-10.8)
--- NOTE | 2020-03-16 07:14 | NUR ---
NURSE NOTES: Spoke with Dr. Murillo no need to reinsert NGT. Endorsed to AM shift.
--- NOTE | 2020-03-16 07:16 | NUR ---
HAND-OFF: Report given to NATHALIA Garcia.
--- NOTE | 2020-03-16 07:22 | NUR ---
NURSE NOTES: Patient awake, confused, trying to get out of bed; on room air, no sing of distress and shortness of breath; no sing of chest pain; PICC Left Upper arm, flushes well; Bilateral soft restrains in place, good circulation; Hemodialysis acces Right Upper arm, patient scheduled for Hemodialysis today; side rails up x2, breaks engaged, bed alarm on, call light within reach; will keep monitoring.
[2020-03-16 07:53] LABS: ALANINE AMINOTRANSFERASE 33 U/L (12-78); ALBUMIN 3.7 G/DL (3.4-5.0); ALBUMIN/GLOBULIN RATIO 0.7 (1.0-2.7); ALKALINE PHOSPHATASE 224 U/L (46-116); ANION GAP 14 mmol/L (5-15); ASPARTATE AMINO TRANSFERASE 30 U/L (15-37); BILIRUBIN,TOTAL 0.9 MG/DL (0.2-1.0); BLOOD UREA NITROGEN 71 mg/dL (7-18); CALCIUM 9.5 MG/DL (8.5-10.1); CARBON DIOXIDE 30 MMOL/L (21-32); CHLORIDE 97 MMOL/L (98-107); CREATININE 9.2 MG/DL (0.55-1.30); PHOSPHORUS 5.4 MG/DL (2.5-4.9); POTASSIUM 4.1 MMOL/L (3.5-5.1); SODIUM 141 MMOL/L (136-145)
[2020-03-16] MEDS: Pyridoxine 50mg tab NG SCH (09:00)
[2020-03-16] MEDS: Heparin 5000 units/ml inj SUBQ SCH ×2 (09:00→22:15)
[2020-03-16] MEDS: Pantoprazole Inj IVP SCH ×2 (09:00→21:40)
--- NOTE | 2020-03-16 09:28 | Diagnostic Imaging Report ---
CLINICAL INDICATION:Respiratory failure. Body pain. History of cardiac stents. History of hysterectomy and oophorectomy TECHNIQUE: Patient ingested only limited oral contrast. IV administration nonionic contrast. Multiphasic spiral acquisitions obtained through the chest, abdomen, and pelvis. Multiplanar reconstructions were generated. Total dose length product 931 mGycm. CTDIvol(s) 2, 55, 10, 10 mGy. Radiation dose was minimized using automated exposure control COMPARISON: No comparison chest CT. Abdomen pelvis compared to 10/04/2017 FINDINGS Exam is limited as patient was unable to hold still during the exam Chest: Ill-defined interstitial and airspace infiltrates are seen in the right lower lobe, the inferior lingula, and in the left lower lobe. There is some left lower lobe volume loss as well. No effusions. No masses or nodules. The heart is enlarged and demonstrates left ventricular hypertrophy. There is a pacemaker within the heart. Coronary stents and calcifications are noted. Prominent but not frankly enlarged mediastinal nodes are noted. Left arm PICC is present. The thyroid is enlarged and heterogeneous. There is edema of the subcutaneous fat. The bones are unremarkable. Abdomen pelvis: The appendix is normal, contrast-filled. No evidence of diverticulosis or diverticulosis. There is diastasis of the rectus abdominis tendon and a small fat-containing ventral hernia.. No small bowel distention. No free or loculated intraperitoneal gas or fluid is evident. The esophagus, stomach, duodenum are unremarkable. The gallbladder demonstrates layering of small stones and/or sludge. The bile ducts are unremarkable. The liver, pancreas, spleen, adrenals are unremarkable. The kidneys demonstrate small calcifications which may be arterial or calyceal. Previously demonstrated right hydronephrosis has resolved. There is a right renal cyst noted. The uterus is absent. No pelvic mass or adenopathy. There is mild edema of the subcutaneous fat. The bones are unremarkable. IMPRESSION: Cardiomegaly. Evidence of left ventricular muscular hypertrophy Bilateral lower lobe and inferior lingular ill-defined parenchymal infiltrates, likely pneumonia but could indicate a component of pulmonary edema. Incidental findings as noted, including right renal cyst, evidence of prior hysterectomy, pacemaker, PICC, coronary stents and calcifications Enlarged heterogeneous thyroid No acute abdominal process cholelithiasis and/or gallbladder sludge Diastasis of the rectus abdominis tendon and small fat-containing ventral hernia, also demonstrated previously. The CT scanner at [facility] is accredited by the [employer] and the scans are performed using protocols designed to limit radiation exposure to as low as reasonably achievable to attain images of sufficient resolution adequate for diagnostic evaluation.
--- NOTE | 2020-03-16 10:01 | Nephrology Progress Note ---
Assessment/Plan Problem List: (1) Acute respiratory failure (2) ESRD (end stage renal disease) on dialysis (3) UTI (urinary tract infection) (4) Patient is Congregation (5) Pacemaker (6) Diabetes (7) Obesity (BMI 30-39.9) Assessment ARDS (adult respiratory distress syndrome) Fever Sepsis UTI (urinary tract infection) Respiratory failure, intubated on ventilator Thrombocytopenia Lymphopenia End stage renal disease on dialysis. Has a right upper arm dialysis fistula as Acces . Getting dialysis Sunday. morbid obesity Anemia / Jehova's witness CAD previous stent HTN- hypertensive urgency upon arrival to [facility]. s/p AVG DM 2 bilateral eye blindness h/o CHF Pacemaker Plan Patient extubated March 04, and remains extubated, now in MedSurg floor Patient positive for Covid 19 Per ID and pulmonary, Last dialyzed 03/13, next dialysis March 16 EPO, thiamin and b6 Phos binders NGT feeding per consultants Remains full code at this time Subjective ROS Limited/Unobtainable: No Constitutional: Reports: malaise, weakness Objective Objective Last 24 Hour Vital Signs Date Time Temp Pulse Resp B/P (MAP) Pulse Ox O2 Delivery O2 Flow Rate FiO2 03/16/20 04:00 97.0 81 21 110/68 (82) 79 03/16/20 01:30 113/71 (85) 03/16/20 00:55 98.1 85 19 192/81 (118) 98 03/15/20 21:00 Room Air 03/15/20 20:00 99.0 71 22 87/56 (66) 100 03/15/20 19:35 97 Room Air 21 03/15/20 19:35 70 20 97 Room Air 21 03/15/20 12:00 98.1 63 18 123/79 (94) 96 Intake and Output 03/15/20 03/16/20 19:00 07:00 Intake Total 406 ml Balance 406 ml Intake Free Water 100 ml IV Total 166 ml Tube Feeding 140 ml # Voids 2 Current Medications Medications (Trade) Dose Ordered Sig/Josi Route PRN Reason Start Time Stop Time Status Last Admin Dose Admin Acetaminophen (Tylenol) 650 mg Q4H PRN GT fever 03/10/20 23:45 04/07/20 23:39 Albuterol/ Ipratropium (Combivent Respimat) 1 puff Q4H PRN INH Shortness of Breath 03/10/20 23:45 04/07/20 23:40 Amlodipine Besylate (Norvasc) 2.5 mg DAILY NG 03/12/20 09:00 04/11/20 08:59 03/15/20 09:23 Atorvastatin Calcium (Lipitor) 10 mg BEDTIME NG 03/11/20 21:00 05/25/20 20:59 03/15/20 21:22 Cefepime HCl 500 mg/Dextrose 55 ml @ 110 mls/hr Q24H IVPB 03/15/20 21:00 03/22/20 20:59 03/15/20 22:13 Chlorhexidine Gluconate (Jenny-Hex 2%) 1 applic DAILY@2000 TOPIC 03/14/20 20:00 06/12/20 19:59 03/15/20 21:20 Daptomycin 800 mg/ Sodium Chloride 55 ml @ 100 mls/hr Q48H IV 03/13/20 21:00 03/20/20 20:59 03/15/20 21:51 Epoetin Jose De Jesus (Epoetin Jose De Jesus(ESRD on dialysis)) 8,000 unit SUN-SUN-SUN SUBQ 03/15/20 21:00 06/13/20 20:59 03/15/20 21:51 Heparin Sodium (Porcine) (Heparin 5000 units/ml) 5,000 units EVERY 12 HOURS SUBQ 03/11/20 09:00 04/10/20 08:59 03/15/20 22:12 Heparin Sodium/ Sodium Chloride (Heparin 1000 units/500ml Premix) 1,000 unit ONCE PRN IV PICC LINE PLACEMENT 03/15/20 12:00 03/17/20 11:59 Insulin Aspart (NovoLOG) Q6HR SUBQ 03/11/20 00:00 05/20/20 12:29 03/15/20 18:20 Lidocaine HCl (Xylocaine 1% 30ml) 30 ml ONCE PRN INJ PICC LINE PLACEMENT 03/15/20 12:00 03/17/20 11:59 Morphine Sulfate (Morphine Sulfate) 4 mg Q6H PRN IVP For Pain 03/15/20 12:15 03/22/20 12:14 Ondansetron HCl (Zofran) 4 mg Q6H PRN IVP Nausea & Vomiting 03/11/20 00:30 03/26/20 06:29 Pantoprazole (Protonix) 40 mg Q12HR IVP 03/11/20 09:00 03/26/20 08:59 03/16/20 09:00 Pyridoxine HCl (Vitamin B6) 50 mg DAILY NG 03/11/20 09:00 03/26/20 08:59 03/15/20 09:23 Sevelamer Carbonate (Renvela) 800 mg Q6HR NG 03/11/20 00:00 05/25/20 11:59 03/15/20 23:24 Thiamine HCl 100 mg/Dextrose 56 ml @ 112 mls/hr Q24H IVPB 03/13/20 23:00 04/12/20 22:59 03/15/20 23:24 Laboratory Tests 03/15/20 18:14: White Blood Count 10.2, Red Blood Count 4.27, Hemoglobin 9.9L, Hematocrit 33.6L , Mean Corpuscular Volume 79L, Mean Corpuscular Hemoglobin 23.1L, Mean Corpuscular Hemoglobin Concent 29.4L, Red Cell Distribution Width 19.1H, Platelet Count 275, Mean Platelet Volume 7.8, Neutrophils (%) (Auto) 62.3, Lymphocytes (%) (Auto) 18.7L, Monocytes (%) (Auto) 14.0H, Eosinophils (%) (Auto ) 3.8H, Basophils (%) (Auto) 1.1, Sodium Level 147H, Potassium Level 3.8, Chloride Level 104, Carbon Dioxide Level 28, Anion Gap 15, Blood Urea Nitrogen 58H, Creatinine 7.5H, Estimat Glomerular Filtration Rate 6.7, Glucose Level 116H , Calcium Level 8.3L, Total Bilirubin 0.8, Aspartate Amino Transf (AST/SGOT) 21 , Alanine Aminotransferase (ALT/SGPT) 30, Alkaline Phosphatase 193H, Total Protein 7.1, Albumin 3.1L, Globulin 4.0, Albumin/Globulin Ratio 0.8L 03/16/20 04:45: White Blood Count 9.5, Red Blood Count 4.26, Hemoglobin 9.9L, Hematocrit 32.6L, Mean Corpuscular Volume 77L, Mean Corpuscular Hemoglobin 23.3L, Mean Corpuscular Hemoglobin Concent 30.5L, Red Cell Distribution Width 17.0H, Platelet Count 272, Mean Platelet Volume 5.3L, Neutrophils (%) (Auto) 56.8, Lymphocytes (%) (Auto) 25.8, Monocytes (%) (Auto) 12.0H, Eosinophils (%) (Auto) 4.7H, Basophils (%) (Auto) 0.7, Sodium Level 141, Potassium Level 4.1, Chloride Level 97L, Carbon Dioxide Level 30, Anion Gap 14, Blood Urea Nitrogen 71H, Creatinine 9.2H, Estimat Glomerular Filtration Rate 5.2, Glucose Level 124H, Calcium Level 9.5, Total Bilirubin 0.9, Aspartate Amino Transf (AST/SGOT) 30, Alanine Aminotransferase (ALT/SGPT) 33, Alkaline Phosphatase 224H, Total Protein 9.0H, Albumin 3.7, Globulin 5.3, Albumin/Globulin Ratio 0.7L, Phosphorus Level 5.4H, Magnesium Level 3.4H, C-Reactive Protein, Quantitative 4.2H, Pro-B-Type Natriuretic Peptide 71024Y Height (Feet): 5 Height (Inches): 7.00 Weight (Pounds): 218 General Appearance: no apparent distress Objective No change Bryan Hunter MD Mar 16, 2020 10:01
--- NOTE | 2020-03-16 10:10 | General Progress Note ---
Assessment/Plan Status: unchanged Assessment/Plan: 1. Diabetes. 2. End-stage renal disease, on hemodialysis. 3. Chronic anemia. 4. Obesity. 5. Gastritis. 6. Kidney stones. 7. Abdominal hernia. 8. Hiatal hernia. 9. Cardiomegaly. 10. Hypercholesterolemia. 11. Hypertension. 12. Bilateral eye blindness. 13. Coronary artery disease and cardiac stent placement. 14. History of EtOH and cocaine abuse in the past. 15. Dysphagia fu abd CT repeat labs COVID positive swallow eval appreciated will start diet and remove NGT Subjective ROS Limited/Unobtainable: No Allergies: Coded Allergies: NO KNOWN ALLERGIES (Unverified Allergy, Unknown, 10/15/15) Objective Last 24 Hour Vital Signs Date Time Temp Pulse Resp B/P (MAP) Pulse Ox O2 Delivery O2 Flow Rate FiO2 03/16/20 04:00 97.0 81 21 110/68 (82) 79 03/16/20 01:30 113/71 (85) 03/16/20 00:55 98.1 85 19 192/81 (118) 98 03/15/20 21:00 Room Air 03/15/20 20:00 99.0 71 22 87/56 (66) 100 03/15/20 19:35 97 Room Air 21 03/15/20 19:35 70 20 97 Room Air 21 03/15/20 12:00 98.1 63 18 123/79 (94) 96 Intake and Output 03/15/20 03/16/20 19:00 07:00 Intake Total 406 ml Balance 406 ml Intake Free Water 100 ml IV Total 166 ml Tube Feeding 140 ml # Voids 2 Laboratory Tests 03/15/20 18:14: White Blood Count 10.2, Red Blood Count 4.27, Hemoglobin 9.9L, Hematocrit 33.6L , Mean Corpuscular Volume 79L, Mean Corpuscular Hemoglobin 23.1L, Mean Corpuscular Hemoglobin Concent 29.4L, Red Cell Distribution Width 19.1H, Platelet Count 275, Mean Platelet Volume 7.8, Neutrophils (%) (Auto) 62.3, Lymphocytes (%) (Auto) 18.7L, Monocytes (%) (Auto) 14.0H, Eosinophils (%) (Auto ) 3.8H, Basophils (%) (Auto) 1.1, Sodium Level 147H, Potassium Level 3.8, Chloride Level 104, Carbon Dioxide Level 28, Anion Gap 15, Blood Urea Nitrogen 58H, Creatinine 7.5H, Estimat Glomerular Filtration Rate 6.7, Glucose Level 116H , Calcium Level 8.3L, Total Bilirubin 0.8, Aspartate Amino Transf (AST/SGOT) 21 , Alanine Aminotransferase (ALT/SGPT) 30, Alkaline Phosphatase 193H, Total Protein 7.1, Albumin 3.1L, Globulin 4.0, Albumin/Globulin Ratio 0.8L 03/16/20 04:45: White Blood Count 9.5, Red Blood Count 4.26, Hemoglobin 9.9L, Hematocrit 32.6L, Mean Corpuscular Volume 77L, Mean Corpuscular Hemoglobin 23.3L, Mean Corpuscular Hemoglobin Concent 30.5L, Red Cell Distribution Width 17.0H, Platelet Count 272, Mean Platelet Volume 5.3L, Neutrophils (%) (Auto) 56.8, Lymphocytes (%) (Auto) 25.8, Monocytes (%) (Auto) 12.0H, Eosinophils (%) (Auto) 4.7H, Basophils (%) (Auto) 0.7, Sodium Level 141, Potassium Level 4.1, Chloride Level 97L, Carbon Dioxide Level 30, Anion Gap 14, Blood Urea Nitrogen 71H, Creatinine 9.2H, Estimat Glomerular Filtration Rate 5.2, Glucose Level 124H, Calcium Level 9.5, Total Bilirubin 0.9, Aspartate Amino Transf (AST/SGOT) 30, Alanine Aminotransferase (ALT/SGPT) 33, Alkaline Phosphatase 224H, Total Protein 9.0H, Albumin 3.7, Globulin 5.3, Albumin/Globulin Ratio 0.7L, Phosphorus Level 5.4H, Magnesium Level 3.4H, C-Reactive Protein, Quantitative 4.2H, Pro-B-Type Natriuretic Peptide [id number] Height (Feet): 5 Height (Inches): 7.00 Weight (Pounds): 218 General Appearance: no apparent distress EENT: PERRL/EOMI Neck: supple Cardiovascular: normal rate Respiratory/Chest: decreased breath sounds Abdomen: normal bowel sounds, non tender, soft Extremities: non-tender Jamison Garcia MD Mar 16, 2020 10:10
--- NOTE | 2020-03-16 10:42 | NUR ---
NOTES: REFERRED FOR SWALLOW EVALUATION BY DR MUSTAFA (GI) (DR BARAKAT ALSO FOLLOWING AND DR LAN IS THE PRIMARY MD), SEE FULL REPORT. ACUTE ISSUES: R/O COVID 19 FIRST TEST POSITIVE, 2ND NEG 3RD TEST PENDING SEPSIS, ARDS,PLACED ON A NON-REBREATHER INITIALLY AND DESAT TO 82% WITH RESP RATE AT 24 BPM NOW ON ROOM AIR WITH RESP RATE OF 19-22 PBM AND PERIOD OF DESAT TO 79% AND FI02 21% SP02 97%, CXR lung worsend bilater infiltrates vs edema and opacities, UTI. COMORBIDITIES COPD, ESRD WITH HD T TH SAT,GERD, CAD, CHF, HTN, ANEMIA,DM, TREMORS AND MEMORY LOSS, MORBID OBESITY, DC, HIV, CIRRHOSIS, DEPRESSIONS AND ANXIETY, MULTIPLE ADMITS TO [facility]. POLST / ADVANCE DIRECTIVE - NO PAPER CHART AND NONE IN ELECTRONIC RECORD REGARDING TUBE FEEDING PREFERENCES. ? DIET PRIOR TO ADMIT FROM SNF (CHART NOT AVAILABLE) HAD OGT PLACED THEN NGT WHICH SHE PULLED LAST NIGHT (AND 2 OR MORE TIMES PRIOR). NOW SHE IS NPO (NOT SEEN YESTERDAY FOR SWALLOW EVAL SINCE SHE WAS NPO FOR A PROCEDURE. ALERT BUT CONFUSED. ABLE TO EXPRESS BASIC NEEDS BUT NOT CONSISTENT IN FOLLOWING ORAL COMMANDS NOR ANSWERING SIMPLE ORIENTATION QUESTIONS. WANTS TO DRINK JUICE. ON ROOM AIR WITH GOOD RESP RATE 19-22 BPM AND O2 SATS 97% IN CHART. INITIAL IMPRESSIONS: S/S OF AT LEAST A MILD-MOD OROPHARYNGEAL DYSPHAGIA WITH INCREASED ORAL PREP AND OROPHARYNGEAL TRANSIT TIMES. GROSSLY FUNCTIONAL OROMOTOR AND VOICE SKILLS FOR FUNCTIONAL AND INTELLIGIBLE VOICE AND SPEECH PRODUCTION. COUGH IS WEAK REFLEXIVELY AND WOULD NOT PRODUCE VOLUNTARY COUGH. GIVEN THIN LIQUIDS VIA STRAW SEQUENTIAL SIPS, ABLE TO COMPLETE 3 0Z OF WATER W/O ORAL SPILLAGE/RESIDUE AND W/O STOPPING BUT COUGHED ON THE LAST SWALLOW (FAIL FOR NOW) RESP RATE 24 BPM (UP FROM 20 BPM) OK WITH 1 MIN REST GIVEN NECTAR THICK LIQUIDS VIA STRAW SEQUENTIAL SIPS ABLE TO SWALLOW 3 0Z W/O ORAL SPILLAGE/RESIDUE NOR OVERT ASPIRATION (RESP RATE UP TO 24 FROM 20 BPM) OK WITH 1 MIN REST GIVEN PUREED TSP, CHEWED FOR 1-2 SECONDS SWALLOWED WITH FAIR HYOLARYNGEAL EXCURSION, NO ORAL RESIDUE/SPILLAGE NOR OVERT ASPIRATION GIVEN MASTICATED SOLIDS (NO DENTITION / DENTURES) OF SALTINE 1/2 CRACKER, CHEWED 10 SECONDS AND HAD MILD ORAL RESIDUE MID TONGUE, CLEARED WITH ONE SIP OF WATER VIA CUP X2 W/O OVERT ASPIRATION HAS SILENT ASPIRATION RISK DUE TO COPD ? NEURO DX (NEED TO CHECK SNF RECORDS WHEN AVAILABLE). RISK FOR ASPIRATION DUE TO NEEDS ASSIST WITH FEEDING AND SWALLOWING/RESP COORDINATION PROBLEMS IF RESP RATE GREATER THAN 24 BPM (HAS COPD) LIKELY WILL EAT ENOUGH REFUSING NGT AND HAS AN APPETITE RECOMMENDATIONS: COMPLETE MOD BARIUM SWALLOW STUDY MBSS TO FURTHER ASSESS SWALLOW, DETERMINE SILENT ASPIRATION RISK AND ATTEMPT TRIAL TX TECHNIQUES PT REFUSING NGT AND PULLED AT LEAST 3 TIMES, WANTS TO EAT BY MOUTH FOR QUALITY OF LIFE PURPOSES (ALSO DOESN'T WANT TO WAIT FOR MBSS) IF PO GIVEN FOR QUALITY OF LIFE, INITIATE PUREED AND NECTAR THICK LIQUIDS WITH POSTED ASPIRATION AND REFLUX (ON GERD MEDS) PRECAUTIONS AND ONE TO ONE FEEDING. CRUSH CRUSHABLE MEDS AND ADD TO APPLESAUCE REST IF RESP RATE MORE THAN [address] SEND CCHO-MED AND RENAL TYPE DIET AND NEPRO BID SKILLED DYSPHAGIA MANAGEMENT AND TX AND COG-COM EVAL/TX EDUCATED/TRAINED NATURAL GAS FIELD PROCESSING SUPERVISOR MESE AND DEB BARRY IN POSTED ASPIRATION/REFLUX PRECAUTIONS
--- NOTE | 2020-03-16 12:41 | Infectious Diseases Prog Note ---
Assessment/Plan Assessment/Plan The patient is a 64-year-old female with Proteus and VRE bacteremia Persistent/recurrent GPC bacteremia (despite 6 weeks of treatment)- highgly suspicious for endovascular source (ie AVF infection, endocarditis) 03/09 Bcx 02/27 VRE, S. epi, 03/10 Bcx 02/27 P . mirabilis, probable amp-C; VRE, CONS; 03/11 Bcx 2/2 sets S.epi -CT abd/p: Cardiomegaly. Evidence of left ventricular muscular hypertrophy. Bilateral lower lobe and inferior lingular ill-defined parenchymal infiltrates, likely pneumonia but could indicate a component of pulmonary edema. Incidental findings as noted, including right renal cyst, evidence of prior hysterectomy, pacemaker, PICC, coronary stents and calcifications Enlarged heterogeneous thyroid. No acute abdominal process cholelithiasis and/ or gallbladder sludge. Diastasis of the rectus abdominis tendon and small fat- containing ventral hernia, also demonstrated previously. Confirmed COVID-19. 02/19 SARS-CoV PCR positive. -1st repeat neg 03/11 ; 2nd repeat is positive 03/13 Pneumonia Mild leukocytosis, SP -03/09 u/a wbc 40-60, nit neg, leuk +3 Fever, recurrent, SP VDRF- sp self extubation 03/05, now on at [facility] - likely 2/2 COVID, less likely active bacterial superinfection since pt just completed empiric course of antibacterial therapy and sputum cx NG -03/07 CXR: Persistent vascular congestion and suspected interstitial edema.Cardiomegaly with pacer. - 03/01 CXR: Worsening bilateral hazy parenchymal infiltrates, versus edema - 02/20 CXR: Mild pulmonary vascular congestion with subtle bilateral haziness, not significantly changed.Possible tiny pleural effusions. Cardiomegaly. - Bcx ngtd - sp cx normal gui Less likely UTI u/a wbc tnct, nit +, leuk +3; ucx cindy(colonizer) Hx of positive blood culture CONS ,persistent; recurrent 02/04 BCx: CoNS 01/30 Bc: (1/2)CoNS and Citrobacter 01/27 , 02/01 Bc: CoNS - (outside facility, # of the +ve cultures are not clear) A 2D echo from outside facility did not show any evidence of vegetation as per Carido pt is high risk for CLAY: ( last admission ) Diabetes. CHF. ESRD. Hypertension. Obesity. 03/08 SP PICC Line placement PLAN: Continue Cefepime #2(abx d #5) for Proteus bacteremia Daptomycin #5 for VRE and S.epi bacteremia 03/15 SP Meropenem #4 03/12/20 SP IV Vancomycin #2 03/08 SP vancomycin, day # ? ( will Rx for probable SBE) 02/27 SP plaquenil+azithromycin #5 02/25 SP Ertapenem #8 02/24 DC amikacin #6 Monitor CBC. Monitor BMP. Monitor cultures (blood, Sp ) COVID19 isolation as 2nd repeat test is still positive f/u 2d Echo- will likely need CLAY will need WBC scan to eval for AVF infection JAE RN Subjective Allergies: Coded Allergies: NO KNOWN ALLERGIES (Unverified Allergy, Unknown, 10/15/15) Subjective afebrile repeat 2nd COvid test is positive no leukocytosis repeat Bcx p Objective Vital Signs Last 24 Hour Vital Signs Date Time Temp Pulse Resp B/P (MAP) Pulse Ox O2 Delivery O2 Flow Rate FiO2 03/16/20 09:00 Room Air 03/16/20 08:00 96.4 93 18 158/71 (100) 97 03/16/20 04:00 97.0 81 21 110/68 (82) 79 03/16/20 01:30 113/71 (85) 03/16/20 00:55 98.1 85 19 192/81 (118) 98 03/15/20 21:00 Room Air 03/15/20 20:00 99.0 71 22 87/56 (66) 100 03/15/20 19:35 97 Room Air 21 03/15/20 19:35 70 20 97 Room Air 21 Height (Feet): 5 Height (Inches): 7.00 Weight (Pounds): 218 Objective not seen to limit COVID19 exposure Microbiology Date/Time Source Procedure Growth Status 03/13/20 18:00 Nasopharynx Coronavirus COVID-19 PCR ([facility]) - Final Complete Laboratory Tests Test 03/15/20 18:14 03/16/20 04:45 White Blood Count 10.2 K/UL (4.8-10.8) 9.5 K/UL (4.8-10.8) Red Blood Count 4.27 M/UL (4.20-5.40) 4.26 M/UL (4.20-5.40) Hemoglobin 9.9 G/DL (12.0-16.0) L 9.9 G/DL (12.0-16.0) L Hematocrit 33.6 % (37.0-47.0) L 32.6 % (37.0-47.0) L Mean Corpuscular Volume 79 FL (80-99) L 77 FL (80-99) L Mean Corpuscular Hemoglobin 23.1 PG (27.0-31.0) L 23.3 PG (27.0-31.0) L Mean Corpuscular Hemoglobin Concent 29.4 G/DL (32.0-36.0) L 30.5 G/DL (32.0-36.0) L Red Cell Distribution Width 19.1 % (11.6-14.8) H 17.0 % (11.6-14.8) H Platelet Count 275 K/UL (150-450) 272 K/UL (150-450) Mean Platelet Volume 7.8 FL (6.5-10.1) 5.3 FL (6.5-10.1) L Neutrophils (%) (Auto) 62.3 % (45.0-75.0) 56.8 % (45.0-75.0) Lymphocytes (%) (Auto) 18.7 % (20.0-45.0) L 25.8 % (20.0-45.0) Monocytes (%) (Auto) 14.0 % (1.0-10.0) H 12.0 % (1.0-10.0) H Eosinophils (%) (Auto) 3.8 % (0.0-3.0) H 4.7 % (0.0-3.0) H Basophils (%) (Auto) 1.1 % (0.0-2.0) 0.7 % (0.0-2.0) Sodium Level 147 MMOL/L (136-145) H 141 MMOL/L (136-145) Potassium Level 3.8 MMOL/L (3.5-5.1) 4.1 MMOL/L (3.5-5.1) Chloride Level 104 MMOL/L (98-107) 97 MMOL/L (98-107) L Carbon Dioxide Level 28 MMOL/L (21-32) 30 MMOL/L (21-32) Anion Gap 15 mmol/L (5-15) 14 mmol/L (5-15) Blood Urea Nitrogen 58 mg/dL (7-18) H 71 mg/dL (7-18) H Creatinine 7.5 MG/DL (0.55-1.30) H 9.2 MG/DL (0.55-1.30) H Estimat Glomerular Filtration Rate 6.7 mL/min (>60) 5.2 mL/min (>60) Glucose Level 116 MG/DL (74-106) H 124 MG/DL (74-106) H Calcium Level 8.3 MG/DL (8.5-10.1) L 9.5 MG/DL (8.5-10.1) Total Bilirubin 0.8 MG/DL (0.2-1.0) 0.9 MG/DL (0.2-1.0) Aspartate Amino Transf (AST/SGOT) 21 U/L (15-37) 30 U/L (15-37) Alanine Aminotransferase (ALT/SGPT) 30 U/L (12-78) 33 U/L (12-78) Alkaline Phosphatase 193 U/L (46-116) H 224 U/L (46-116) H Total Protein 7.1 G/DL (6.4-8.2) 9.0 G/DL (6.4-8.2) H Albumin 3.1 G/DL (3.4-5.0) L 3.7 G/DL (3.4-5.0) Globulin 4.0 g/dL 5.3 g/dL Albumin/Globulin Ratio 0.8 (1.0-2.7) L 0.7 (1.0-2.7) L Phosphorus Level 5.4 MG/DL (2.5-4.9) H Magnesium Level 3.4 MG/DL (1.8-2.4) H C-Reactive Protein, Quantitative 4.2 mg/dL (0.00-0.90) H Pro-B-Type Natriuretic Peptide 53608 pg/mL (0-125) H Current Medications Medications (Trade) Dose Ordered Sig/Josi Route PRN Reason Start Time Stop Time Status Last Admin Dose Admin Acetaminophen (Tylenol) 650 mg Q4H PRN GT fever 4/15/20 23:45 04/07/20 23:39 Albuterol/ Ipratropium (Combivent Respimat) 1 puff Q4H PRN INH Shortness of Breath 03/10/20 23:45 04/07/20 23:40 Amlodipine Besylate (Norvasc) 2.5 mg DAILY NG 03/12/20 09:00 04/11/20 08:59 03/15/20 09:23 Atorvastatin Calcium (Lipitor) 10 mg BEDTIME NG 03/11/20 21:00 05/25/20 20:59 03/15/20 21:22 Cefepime HCl 500 mg/Dextrose 55 ml @ 110 mls/hr Q24H IVPB 03/15/20 21:00 03/22/20 20:59 03/15/20 22:13 Chlorhexidine Gluconate (Jenny-Hex 2%) 1 applic DAILY@2000 TOPIC 03/14/20 20:00 06/12/20 19:59 03/15/20 21:20 Daptomycin 800 mg/ Sodium Chloride 55 ml @ 100 mls/hr Q48H IV 03/13/20 21:00 03/20/20 20:59 03/15/20 21:51 Epoetin Jose De Jesus (Epoetin Jose De Jesus(ESRD on dialysis)) 8,000 unit SUN-SUN-SUN SUBQ 03/15/20 21:00 06/13/20 20:59 03/15/20 21:51 Heparin Sodium (Porcine) (Heparin 5000 units/ml) 5,000 units EVERY 12 HOURS SUBQ 03/11/20 09:00 04/10/20 08:59 03/15/20 22:12 Heparin Sodium/ Sodium Chloride (Heparin 1000 units/500ml Premix) 1,000 unit ONCE PRN IV PICC LINE PLACEMENT 03/15/20 12:00 03/17/20 11:59 Insulin Aspart (NovoLOG) Q6HR SUBQ 03/11/20 00:00 05/20/20 12:29 03/16/20 12:14 Lidocaine HCl (Xylocaine 1% 30ml) 30 ml ONCE PRN INJ PICC LINE PLACEMENT 03/15/20 12:00 03/17/20 11:59 Morphine Sulfate (Morphine Sulfate) 4 mg Q6H PRN IVP For Pain 03/15/20 12:15 03/22/20 12:14 Ondansetron HCl (Zofran) 4 mg Q6H PRN IVP Nausea & Vomiting 03/11/20 00:30 03/26/20 06:29 Pantoprazole (Protonix) 40 mg Q12HR IVP 03/11/20 09:00 03/26/20 08:59 03/16/20 09:00 Pyridoxine HCl (Vitamin B6) 50 mg DAILY NG 03/11/20 09:00 03/26/20 08:59 03/15/20 09:23 Sevelamer Carbonate (Renvela) 800 mg Q6HR NG 03/11/20 00:00 05/25/20 11:59 03/16/20 12:12 Thiamine HCl 100 mg/Dextrose 56 ml @ 112 mls/hr Q24H IVPB 03/13/20 23:00 04/12/20 22:59 03/15/20 23:24 Susi Vanegas M.D. Mar 16, 2020 12:41
--- NOTE | 2020-03-16 12:43 | General Progress Note ---
Assessment/Plan Problem List: (1) Obesity (BMI 30-39.9) ICD Codes: E66.9 - Obesity, unspecified SNOMED: 344256478, 536076370 (2) COVID-19 virus infection ICD Codes: U07.1 - COVID-19 SNOMED: 761255568 (3) Acute respiratory failure ICD Codes: J96.00 - Acute respiratory failure, unspecified whether with hypoxia or hypercapnia SNOMED: 82285698 (4) Blindness of both eyes ICD Codes: H54.0 - Blindness SNOMED: 107122920 (5) ESRD (end stage renal disease) on dialysis ICD Codes: N18.6 - End stage renal disease; Z99.2 - Dependence on renal dialysis SNOMED: 261085396 (6) Anemia ICD Codes: D64.9 - Anemia, unspecified SNOMED: 008257865 (7) Diabetes ICD Codes: E11.9 - Type 2 diabetes mellitus without complications SNOMED: 06747686 (8) AMS (altered mental status) ICD Codes: R41.82 - Altered mental status, unspecified SNOMED: 407396853 Status: unchanged Assessment/Plan: vent abx dialysis cbc bmp am ltach eval Subjective Constitutional: Reports: weakness Allergies: Coded Allergies: NO KNOWN ALLERGIES (Unverified Allergy, Unknown, 10/15/15) All Systems: reviewed and negative except above Subjective lethargic sleepy Objective Last 24 Hour Vital Signs Date Time Temp Pulse Resp B/P (MAP) Pulse Ox O2 Delivery O2 Flow Rate FiO2 03/16/20 09:00 Room Air 03/16/20 08:00 96.4 93 18 158/71 (100) 97 03/16/20 04:00 97.0 81 21 110/68 (82) 79 03/16/20 01:30 113/71 (85) 03/16/20 00:55 98.1 85 19 192/81 (118) 98 03/15/20 21:00 Room Air 03/15/20 20:00 99.0 71 22 87/56 (66) 100 03/15/20 19:35 97 Room Air 21 03/15/20 19:35 70 20 97 Room Air 21 Intake and Output 03/15/20 03/16/20 19:00 07:00 Intake Total 406 ml Balance 406 ml Intake Free Water 100 ml IV Total 166 ml Tube Feeding 140 ml # Voids 2 Laboratory Tests 03/15/20 18:14: White Blood Count 10.2, Red Blood Count 4.27, Hemoglobin 9.9L, Hematocrit 33.6L , Mean Corpuscular Volume 79L, Mean Corpuscular Hemoglobin 23.1L, Mean Corpuscular Hemoglobin Concent 29.4L, Red Cell Distribution Width 19.1H, Platelet Count 275, Mean Platelet Volume 7.8, Neutrophils (%) (Auto) 62.3, Lymphocytes (%) (Auto) 18.7L, Monocytes (%) (Auto) 14.0H, Eosinophils (%) (Auto ) 3.8H, Basophils (%) (Auto) 1.1, Sodium Level 147H, Potassium Level 3.8, Chloride Level 104, Carbon Dioxide Level 28, Anion Gap 15, Blood Urea Nitrogen 58H, Creatinine 7.5H, Estimat Glomerular Filtration Rate 6.7, Glucose Level 116H , Calcium Level 8.3L, Total Bilirubin 0.8, Aspartate Amino Transf (AST/SGOT) 21 , Alanine Aminotransferase (ALT/SGPT) 30, Alkaline Phosphatase 193H, Total Protein 7.1, Albumin 3.1L, Globulin 4.0, Albumin/Globulin Ratio 0.8L 03/16/20 04:45: White Blood Count 9.5, Red Blood Count 4.26, Hemoglobin 9.9L, Hematocrit 32.6L, Mean Corpuscular Volume 77L, Mean Corpuscular Hemoglobin 23.3L, Mean Corpuscular Hemoglobin Concent 30.5L, Red Cell Distribution Width 17.0H, Platelet Count 272, Mean Platelet Volume 5.3L, Neutrophils (%) (Auto) 56.8, Lymphocytes (%) (Auto) 25.8, Monocytes (%) (Auto) 12.0H, Eosinophils (%) (Auto) 4.7H, Basophils (%) (Auto) 0.7, Sodium Level 141, Potassium Level 4.1, Chloride Level 97L, Carbon Dioxide Level 30, Anion Gap 14, Blood Urea Nitrogen 71H, Creatinine 9.2H, Estimat Glomerular Filtration Rate 5.2, Glucose Level 124H, Calcium Level 9.5, Total Bilirubin 0.9, Aspartate Amino Transf (AST/SGOT) 30, Alanine Aminotransferase (ALT/SGPT) 33, Alkaline Phosphatase 224H, Total Protein 9.0H, Albumin 3.7, Globulin 5.3, Albumin/Globulin Ratio 0.7L, Phosphorus Level 5.4H, Magnesium Level 3.4H, C-Reactive Protein, Quantitative 4.2H, Pro-B-Type Natriuretic Peptide [id number] Height (Feet): 5 Height (Inches): 7.00 Weight (Pounds): 218 General Appearance: lethargic EENT: normal ENT inspection Neck: normal alignment Cardiovascular: normal rate, regular rhythm Respiratory/Chest: no respiratory distress, no accessory muscle use Extremities: normal inspection Skin: normal pigmentation Roderick Henning DO Mar 16, 2020 12:43
--- NOTE | 2020-03-16 13:04 | Pulmonology Progress Note ---
Assessment/Plan Problems: (1) At high risk for aspiration (2) Sepsis (3) Acute respiratory failure Assessment & Plan: extubated now (4) Accelerated hypertension (5) COVID-19 virus infection (6) ESRD (end stage renal disease) on dialysis (7) Diabetes (8) Patient is [employer] (9) Morbid obesity Assessment/Plan still confused, pulled NG tube swallow study wbc still high improving still has NG tube on isolation afebrile in the last few days f/u cultures respiratory treatment Subjective ROS Limited/Unobtainable: No Constitutional: Reports: no symptoms HEENT: Repors: no symptoms Respiratory: Reports: no symptoms Allergies: Coded Allergies: NO KNOWN ALLERGIES (Unverified Allergy, Unknown, 10/15/15) All Systems: reviewed and negative except above Objective Last 24 Hour Vital Signs Date Time Temp Pulse Resp B/P (MAP) Pulse Ox O2 Delivery O2 Flow Rate FiO2 03/16/20 09:00 Room Air 03/16/20 08:00 96.4 93 18 158/71 (100) 97 03/16/20 04:00 97.0 81 21 110/68 (82) 79 03/16/20 01:30 113/71 (85) 03/16/20 00:55 98.1 85 19 192/81 (118) 98 03/15/20 21:00 Room Air 03/15/20 20:00 99.0 71 22 87/56 (66) 100 03/15/20 19:35 97 Room Air 21 03/15/20 19:35 70 20 97 Room Air 21 Intake and Output 03/15/20 03/16/20 19:00 07:00 Intake Total 406 ml Balance 406 ml Intake Free Water 100 ml IV Total 166 ml Tube Feeding 140 ml # Voids 2 Objective pulled out the NG tube General Appearance: no acute distress, other - morbidly obese AA female HEENT: normocephalic, atraumatic Respiratory/Chest: decreased breath sounds Breasts: no masses Cardiovascular: normal rate, other - LUE PICC intact Abdomen: normal bowel sounds, soft, non tender - obese Genitourinary: normal external genitalia Extremities: other - trace edema BLE, RUE AV shunt + bruit/thrill Skin: no rash Neurologic/Psychiatric: abnormal gait, alert, responsive Lymphatic: no neck adenopathy Musculoskeletal: atrophy - BLE Microbiology Date/Time Source Procedure Growth Status 03/13/20 18:00 Nasopharynx Coronavirus COVID-19 PCR ([facility]) - Final Complete Laboratory Tests 03/15/20 18:14: White Blood Count 10.2, Red Blood Count 4.27, Hemoglobin 9.9L, Hematocrit 33.6L , Mean Corpuscular Volume 79L, Mean Corpuscular Hemoglobin 23.1L, Mean Corpuscular Hemoglobin Concent 29.4L, Red Cell Distribution Width 19.1H, Platelet Count 275, Mean Platelet Volume 7.8, Neutrophils (%) (Auto) 62.3, Lymphocytes (%) (Auto) 18.7L, Monocytes (%) (Auto) 14.0H, Eosinophils (%) (Auto ) 3.8H, Basophils (%) (Auto) 1.1, Sodium Level 147H, Potassium Level 3.8, Chloride Level 104, Carbon Dioxide Level 28, Anion Gap 15, Blood Urea Nitrogen 58H, Creatinine 7.5H, Estimat Glomerular Filtration Rate 6.7, Glucose Level 116H , Calcium Level 8.3L, Total Bilirubin 0.8, Aspartate Amino Transf (AST/SGOT) 21 , Alanine Aminotransferase (ALT/SGPT) 30, Alkaline Phosphatase 193H, Total Protein 7.1, Albumin 3.1L, Globulin 4.0, Albumin/Globulin Ratio 0.8L 03/16/20 04:45: White Blood Count 9.5, Red Blood Count 4.26, Hemoglobin 9.9L, Hematocrit 32.6L, Mean Corpuscular Volume 77L, Mean Corpuscular Hemoglobin 23.3L, Mean Corpuscular Hemoglobin Concent 30.5L, Red Cell Distribution Width 17.0H, Platelet Count 272, Mean Platelet Volume 5.3L, Neutrophils (%) (Auto) 56.8, Lymphocytes (%) (Auto) 25.8, Monocytes (%) (Auto) 12.0H, Eosinophils (%) (Auto) 4.7H, Basophils (%) (Auto) 0.7, Sodium Level 141, Potassium Level 4.1, Chloride Level 97L, Carbon Dioxide Level 30, Anion Gap 14, Blood Urea Nitrogen 71H, Creatinine 9.2H, Estimat Glomerular Filtration Rate 5.2, Glucose Level 124H, Calcium Level 9.5, Total Bilirubin 0.9, Aspartate Amino Transf (AST/SGOT) 30, Alanine Aminotransferase (ALT/SGPT) 33, Alkaline Phosphatase 224H, Total Protein 9.0H, Albumin 3.7, Globulin 5.3, Albumin/Globulin Ratio 0.7L, Phosphorus Level 5.4H, Magnesium Level 3.4H, C-Reactive Protein, Quantitative 4.2H, Pro-B-Type Natriuretic Peptide 23231M Current Medications Medications (Trade) Dose Ordered Sig/Josi Route PRN Reason Start Time Stop Time Status Last Admin Dose Admin Acetaminophen (Tylenol) 650 mg Q4H PRN GT fever 03/10/20 23:45 04/07/20 23:39 Albuterol/ Ipratropium (Combivent Respimat) 1 puff Q4H PRN INH Shortness of Breath 03/10/20 23:45 04/07/20 23:40 Amlodipine Besylate (Norvasc) 2.5 mg DAILY NG 03/12/20 09:00 04/11/20 08:59 03/15/20 09:23 Atorvastatin Calcium (Lipitor) 10 mg BEDTIME NG 03/11/20 21:00 05/25/20 20:59 03/15/20 21:22 Cefepime HCl 500 mg/Dextrose 55 ml @ 110 mls/hr Q24H IVPB 03/15/20 21:00 03/22/20 20:59 03/15/20 22:13 Chlorhexidine Gluconate (Jenny-Hex 2%) 1 applic DAILY@2000 TOPIC 03/14/20 20:00 06/12/20 19:59 03/15/20 21:20 Daptomycin 800 mg/ Sodium Chloride 55 ml @ 100 mls/hr Q48H IV 03/13/20 21:00 03/20/20 20:59 03/15/20 21:51 Epoetin Jose De Jesus (Epoetin Jose De Jesus(ESRD on dialysis)) 8,000 unit SUN-SUN-SUN SUBQ 03/15/20 21:00 06/13/20 20:59 03/15/20 21:51 Heparin Sodium (Porcine) (Heparin 5000 units/ml) 5,000 units EVERY 12 HOURS SUBQ 03/11/20 09:00 04/10/20 08:59 03/15/20 22:12 Heparin Sodium/ Sodium Chloride (Heparin 1000 units/500ml Premix) 1,000 unit ONCE PRN IV PICC LINE PLACEMENT 03/15/20 12:00 03/17/20 11:59 Insulin Aspart (NovoLOG) Q6HR SUBQ 03/11/20 00:00 05/20/20 12:29 03/16/20 12:14 Lidocaine HCl (Xylocaine 1% 30ml) 30 ml ONCE PRN INJ PICC LINE PLACEMENT 03/15/20 12:00 03/17/20 11:59 Morphine Sulfate (Morphine Sulfate) 4 mg Q6H PRN IVP For Pain 03/15/20 12:15 03/22/20 12:14 Ondansetron HCl (Zofran) 4 mg Q6H PRN IVP Nausea & Vomiting 03/11/20 00:30 03/26/20 06:29 Pantoprazole (Protonix) 40 mg Q12HR IVP 03/11/20 09:00 03/26/20 08:59 03/16/20 09:00 Pyridoxine HCl (Vitamin B6) 50 mg DAILY NG 03/11/20 09:00 03/26/20 08:59 03/15/20 09:23 Sevelamer Carbonate (Renvela) 800 mg Q6HR NG 03/11/20 00:00 05/25/20 11:59 03/16/20 12:12 Thiamine HCl 100 mg/Dextrose 56 ml @ 112 mls/hr Q24H IVPB 03/13/20 23:00 04/12/20 22:59 03/15/20 23:24 Meghana Murillo MD Mar 16, 2020 13:04
--- NOTE | 2020-03-16 14:34 | NUR ---
NURSE NOTES: Received notification from microbiology, one bottle blood positive for gram cocci in chains. Left message for MD Vanegas, awaiting any new orders.
--- NOTE | 2020-03-16 15:58 | Cardiology Progress Note ---
Assessment/Plan Assessment/Plan 1. Respiratory failure. 2. History of obesity hypoventilation syndrome. 3. History of pulmonary hypertension previously. 4. Urinary tract infection. 5. covid 19 infection confimred 6. pneumonia. 7. History of bacteremia with Staph epi recently on 02/05/2020. 8. somnolence 9. Polymicrobial bacteremia i did not examine pt personally with confirmed covid 19 now off tele sat normal off oxygen no cough no diarrhea all labs reviewed wbcnorml no fever since 03/05 despite all the bacteremia !! dialysis covid neg from 03/[address] was really not sig abn bc remain + for coag neg staph Subjective Subjective per rn confused in restraints has ng tube and Tyler , tolerating feeding not pulling out ngt Objective Last 24 Hour Vital Signs Date Time Temp Pulse Resp B/P (MAP) Pulse Ox O2 Delivery O2 Flow Rate FiO2 03/16/20 12:00 96.4 73 19 128/69 (88) 98 03/16/20 09:00 Room Air 03/16/20 08:00 96.4 93 18 158/71 (100) 97 03/16/20 04:00 97.0 81 21 110/68 (82) 79 03/16/20 01:30 113/71 (85) 03/16/20 00:55 98.1 85 19 192/81 (118) 98 03/15/20 21:00 Room Air 03/15/20 20:00 99.0 71 22 87/56 (66) 100 03/15/20 19:35 97 Room Air 21 03/15/20 19:35 70 20 97 Room Air 21 Intake and Output 03/15/20 03/16/20 19:00 07:00 Intake Total 406 ml Balance 406 ml Intake Free Water 100 ml IV Total 166 ml Tube Feeding 140 ml # Voids 2 Laboratory Tests Test 03/15/20 18:14 03/16/20 04:45 White Blood Count 10.2 K/UL (4.8-10.8) 9.5 K/UL (4.8-10.8) Red Blood Count 4.27 M/UL (4.20-5.40) 4.26 M/UL (4.20-5.40) Hemoglobin 9.9 G/DL (12.0-16.0) L 9.9 G/DL (12.0-16.0) L Hematocrit 33.6 % (37.0-47.0) L 32.6 % (37.0-47.0) L Mean Corpuscular Volume 79 FL (80-99) L 77 FL (80-99) L Mean Corpuscular Hemoglobin 23.1 PG (27.0-31.0) L 23.3 PG (27.0-31.0) L Mean Corpuscular Hemoglobin Concent 29.4 G/DL (32.0-36.0) L 30.5 G/DL (32.0-36.0) L Red Cell Distribution Width 19.1 % (11.6-14.8) H 17.0 % (11.6-14.8) H Platelet Count 275 K/UL (150-450) 272 K/UL (150-450) Mean Platelet Volume 7.8 FL (6.5-10.1) 5.3 FL (6.5-10.1) L Neutrophils (%) (Auto) 62.3 % (45.0-75.0) 56.8 % (45.0-75.0) Lymphocytes (%) (Auto) 18.7 % (20.0-45.0) L 25.8 % (20.0-45.0) Monocytes (%) (Auto) 14.0 % (1.0-10.0) H 12.0 % (1.0-10.0) H Eosinophils (%) (Auto) 3.8 % (0.0-3.0) H 4.7 % (0.0-3.0) H Basophils (%) (Auto) 1.1 % (0.0-2.0) 0.7 % (0.0-2.0) Sodium Level 147 MMOL/L (136-145) H 141 MMOL/L (136-145) Potassium Level 3.8 MMOL/L (3.5-5.1) 4.1 MMOL/L (3.5-5.1) Chloride Level 104 MMOL/L (98-107) 97 MMOL/L (98-107) L Carbon Dioxide Level 28 MMOL/L (21-32) 30 MMOL/L (21-32) Anion Gap 15 mmol/L (5-15) 14 mmol/L (5-15) Blood Urea Nitrogen 58 mg/dL (7-18) H 71 mg/dL (7-18) H Creatinine 7.5 MG/DL (0.55-1.30) H 9.2 MG/DL (0.55-1.30) H Estimat Glomerular Filtration Rate 6.7 mL/min (>60) 5.2 mL/min (>60) Glucose Level 116 MG/DL (74-106) H 124 MG/DL (74-106) H Calcium Level 8.3 MG/DL (8.5-10.1) L 9.5 MG/DL (8.5-10.1) Total Bilirubin 0.8 MG/DL (0.2-1.0) 0.9 MG/DL (0.2-1.0) Aspartate Amino Transf (AST/SGOT) 21 U/L (15-37) 30 U/L (15-37) Alanine Aminotransferase (ALT/SGPT) 30 U/L (12-78) 33 U/L (12-78) Alkaline Phosphatase 193 U/L (46-116) H 224 U/L (46-116) H Total Protein 7.1 G/DL (6.4-8.2) 9.0 G/DL (6.4-8.2) H Albumin 3.1 G/DL (3.4-5.0) L 3.7 G/DL (3.4-5.0) Globulin 4.0 g/dL 5.3 g/dL Albumin/Globulin Ratio 0.8 (1.0-2.7) L 0.7 (1.0-2.7) L Phosphorus Level 5.4 MG/DL (2.5-4.9) H Magnesium Level 3.4 MG/DL (1.8-2.4) H C-Reactive Protein, Quantitative 4.2 mg/dL (0.00-0.90) H Pro-B-Type Natriuretic Peptide 57709 pg/mL (0-125) H Microbiology Date/Time Source Procedure Growth Status 03/15/20 18:14 Blood Blood Culture - Preliminary Resulted 03/13/20 18:00 Nasopharynx Coronavirus COVID-19 PCR ([facility]) - Final Complete Wilfredo Reyna MD Mar 16, 2020 15:58
--- NOTE | 2020-03-16 17:30 | NUR ---
NURSE NOTES: Two sets of Blood culture drawn, dropped to lab; waiting for result;
--- NOTE | 2020-03-16 18:10 | NUR ---
NURSE NOTES: Patient is getting Hemodialysis;
--- NOTE | 2020-03-16 19:27 | NUR ---
HAND-OFF: Report given to NATHALIA Robbins.
--- NOTE | 2020-03-16 19:30 | NUR ---
NURSE NOTES: Patient asleep in bed, not in acute respiratory distress, no signs of pain. With ongoing dialysis. Bed in lowest, lock engaged and alarm on. Will continue plan of care.
[2020-03-16] MEDS: Dyna-Hex 2% Top Sol 2oz TOPIC SCH (20:00)
[2020-03-16] MEDS: Cefepime HCl 500 MG in D5W 55 ML IVPB SCH (21:45)
[2020-03-16] MEDS: Thiamine HCl 100 MG in D5W 55 ML IVPB SCH (23:18)
[2020-03-17] VITALS: BP 145/92
[2020-03-17 04:00] VITALS: BP 143/64
[2020-03-17] MEDS: NovoLOG Insulin Flexpen SUBQ SCH ×3 (05:35→17:47)
[2020-03-17] MEDS: Renvela 800mg Pkt NG SCH ×3 (05:38→17:41)
[2020-03-17 05:55] LABS: BASOPHILS % (AUTO) 1.2 % (0.0-2.0); EOSINOPHILS % (AUTO) 4.3 % (0.0-3.0); HEMOGLOBIN 9.7 G/DL (12.0-16.0); LYMPHOCYTES % (AUTO) 22.1 % (20.0-45.0); MEAN CORPUSCULAR VOLUME 76 FL (80-99); MONOCYTES % (AUTO) 15.5 % (1.0-10.0); NEUTROPHILS % (AUTO) 56.9 % (45.0-75.0); PLATELET COUNT 250 K/UL (150-450); RED BLOOD COUNT 4.08 M/UL (4.20-5.40); RED CELL DISTRIBUTION WIDTH 16.8 % (11.6-14.8)
[2020-03-17 06:43] LABS: ANION GAP 11 mmol/L (5-15); BLOOD UREA NITROGEN 51 mg/dL (7-18); CALCIUM 9.8 MG/DL (8.5-10.1); CARBON DIOXIDE 32 MMOL/L (21-32); CHLORIDE 97 MMOL/L (98-107); CREATININE 7.3 MG/DL (0.55-1.30); POTASSIUM 4.1 MMOL/L (3.5-5.1); SODIUM 140 MMOL/L (136-145)
--- NOTE | 2020-03-17 07:06 | NUR ---
HAND-OFF: Report given to NATHALIA Garcia.
--- NOTE | 2020-03-17 07:51 | NUR ---
NURSE NOTES: Patient awake, alert x2; on room air, no sing of distress and shortness of breath; no sing of chest pain; PICC line on Left Upper arm, flushes well; Hemodialysis access on Right upper arm, dressing dry and intact; bilateral wrist-rains in place;side rails up x2, breaks engaged, bed alarm on, bed at lowest position; call light within reach; will keep monitoring.
[2020-03-17 08:00] VITALS: BP 111/66
--- NOTE | 2020-03-17 08:53 | General Progress Note ---
Assessment/Plan Problem List: (1) Obesity (BMI 30-39.9) ICD Codes: E66.9 - Obesity, unspecified SNOMED: 268595554, 836037131 (2) COVID-19 virus infection ICD Codes: U07.1 - COVID-19 SNOMED: 838947481 (3) Acute respiratory failure ICD Codes: J96.00 - Acute respiratory failure, unspecified whether with hypoxia or hypercapnia SNOMED: 04313791 (4) Blindness of both eyes ICD Codes: H54.0 - Blindness SNOMED: 720202135 (5) ESRD (end stage renal disease) on dialysis ICD Codes: N18.6 - End stage renal disease; Z99.2 - Dependence on renal dialysis SNOMED: 449186726 (6) Anemia ICD Codes: D64.9 - Anemia, unspecified SNOMED: 799755911 (7) Diabetes ICD Codes: E11.9 - Type 2 diabetes mellitus without complications SNOMED: 73085081 (8) AMS (altered mental status) ICD Codes: R41.82 - Altered mental status, unspecified SNOMED: 925388678 Status: unchanged Assessment/Plan: vent abx dialysis cbc bmp am ltach eval Subjective Constitutional: Reports: weakness Allergies: Coded Allergies: NO KNOWN ALLERGIES (Unverified Allergy, Unknown, 10/15/15) All Systems: reviewed and negative except above Subjective lethargic sleepy Objective Last 24 Hour Vital Signs Date Time Temp Pulse Resp B/P (MAP) Pulse Ox O2 Delivery O2 Flow Rate FiO2 03/17/20 04:00 97.7 80 20 143/64 (90) 99 03/17/20 00:00 97.8 84 145/92 (109) 03/16/20 22:30 96.4 84 18 92/48 (63) 98 03/16/20 21:12 96 Room Air 21 03/16/20 21:12 74 20 96 Room Air 21 03/16/20 21:00 Room Air 03/16/20 16:00 97.0 76 20 152/72 (98) 97 03/16/20 12:00 96.4 73 19 128/69 (88) 98 03/16/20 09:00 Room Air Intake and Output 03/16/20 03/17/20 19:00 07:00 Intake Total 720 ml 361 ml Balance 720 ml 361 ml Intake Oral 720 ml 250 ml IV Total 111 ml # Voids 1 # Bowel Movements 1 Laboratory Tests 03/17/20 04:50: White Blood Count 10.0, Red Blood Count 4.08L, Hemoglobin 9.7L, Hematocrit 31.0L , Mean Corpuscular Volume 76L, Mean Corpuscular Hemoglobin 23.9L, Mean Corpuscular Hemoglobin Concent 31.4L, Red Cell Distribution Width 16.8H, Platelet Count 250, Mean Platelet Volume 5.6L, Neutrophils (%) (Auto) 56.9, Lymphocytes (%) (Auto) 22.1, Monocytes (%) (Auto) 15.5H, Eosinophils (%) (Auto) 4.3H, Basophils (%) (Auto) 1.2, Sodium Level 140, Potassium Level 4.1, Chloride Level 97L, Carbon Dioxide Level 32, Anion Gap 11, Blood Urea Nitrogen 51H, Creatinine 7.3H, Estimat Glomerular Filtration Rate 6.8, Glucose Level 102, Calcium Level 9.8 Height (Feet): 5 Height (Inches): 7.00 Weight (Pounds): 217 General Appearance: lethargic EENT: normal ENT inspection Neck: normal alignment Cardiovascular: normal rate, regular rhythm Respiratory/Chest: no respiratory distress, no accessory muscle use Extremities: normal inspection Skin: normal pigmentation Roderick Henning DO Mar 17, 2020 08:53
--- NOTE | 2020-03-17 09:29 | NUR ---
NURSE NOTES: Nelly from called from microbiology and stated patient had 1 bottle blood positive for gram positive cocci in clusters. NATHALIA Drew notified.
[2020-03-17] MEDS: Pantoprazole Inj IVP SCH (09:42)
[2020-03-17] MEDS: Pyridoxine 50mg tab NG SCH (09:42)
[2020-03-17] MEDS: Heparin 5000 units/ml inj SUBQ SCH ×2 (09:45→21:40)
--- NOTE | 2020-03-17 10:31 | NUR ---
NURSE NOTES: I was informed by charge nurse, Jimmy that he received a call from lab regarding patient's blood culture; the result for the culture Gram positive Cocci in cluster; I communicated the result to MD Vanegas; waiting for order.
--- NOTE | 2020-03-17 11:01 | Nephrology Progress Note ---
Assessment/Plan Problem List: (1) Acute respiratory failure (2) ESRD (end stage renal disease) on dialysis (3) UTI (urinary tract infection) (4) Patient is [facility] (5) Pacemaker (6) Diabetes (7) Obesity (BMI 30-39.9) Assessment ARDS (adult respiratory distress syndrome) Fever Sepsis UTI (urinary tract infection) Respiratory failure, intubated on ventilator Thrombocytopenia Lymphopenia End stage renal disease on dialysis. Has a right upper arm dialysis fistula as Acces . Getting dialysis Sunday. morbid obesity Anemia / Jehova's witness CAD previous stent HTN- hypertensive urgency upon arrival to [facility]. s/p AVG DM 2 bilateral eye blindness h/o CHF Pacemaker Plan NG tube is out not takes p.o., will change all IV medication to p.o. Patient extubated March 04, and remains extubated, now in MedSurg floor Patient positive for Covid 19 Per ID and pulmonary, Last dialyzed March 16, next March 18 EPO, thiamin and b6 Phos binders NGT feeding per consultants Remains full code at this time Subjective ROS Limited/Unobtainable: No Constitutional: Reports: malaise, weakness Objective Objective Last 24 Hour Vital Signs Date Time Temp Pulse Resp B/P (MAP) Pulse Ox O2 Delivery O2 Flow Rate FiO2 03/17/20 09:42 90 111/66 03/17/20 08:00 98.6 90 19 111/66 (81) 97 03/17/20 04:00 97.7 80 20 143/64 (90) 99 03/17/20 00:00 97.8 84 145/92 (109) 03/16/20 22:30 96.4 84 18 92/48 (63) 98 03/16/20 21:12 96 Room Air 21 03/16/20 21:12 74 20 96 Room Air 21 03/16/20 21:00 Room Air 03/16/20 16:00 97.0 76 20 152/72 (98) 97 03/16/20 12:00 96.4 73 19 128/69 (88) 98 Intake and Output 03/16/20 03/17/20 19:00 07:00 Intake Total 720 ml 361 ml Balance 720 ml 361 ml Intake Oral 720 ml 250 ml IV Total 111 ml # Voids 1 # Bowel Movements 1 Laboratory Tests 03/17/20 04:50: White Blood Count 10.0, Red Blood Count 4.08L, Hemoglobin 9.7L, Hematocrit 31.0L , Mean Corpuscular Volume 76L, Mean Corpuscular Hemoglobin 23.9L, Mean Corpuscular Hemoglobin Concent 31.4L, Red Cell Distribution Width 16.8H, Platelet Count 250, Mean Platelet Volume 5.6L, Neutrophils (%) (Auto) 56.9, Lymphocytes (%) (Auto) 22.1, Monocytes (%) (Auto) 15.5H, Eosinophils (%) (Auto) 4.3H, Basophils (%) (Auto) 1.2, Sodium Level 140, Potassium Level 4.1, Chloride Level 97L, Carbon Dioxide Level 32, Anion Gap 11, Blood Urea Nitrogen 51H, Creatinine 7.3H, Estimat Glomerular Filtration Rate 6.8, Glucose Level 102, Calcium Level 9.8 Height (Feet): 5 Height (Inches): 7.00 Weight (Pounds): 217 General Appearance: no apparent distress, lethargic EENT: other Cardiovascular: tachycardia Respiratory/Chest: decreased breath sounds Abdomen: distended Objective No change Bryan Hunter MD Mar 17, 2020 11:00
--- NOTE | 2020-03-17 11:15 | General Progress Note ---
Assessment/Plan Status: unchanged Assessment/Plan: 1. Diabetes. 2. End-stage renal disease, on hemodialysis. 3. Chronic anemia. 4. Obesity. 5. Gastritis. 6. Kidney stones. 7. Abdominal hernia. 8. Hiatal hernia. 9. Cardiomegaly. 10. Hypercholesterolemia. 11. Hypertension. 12. Bilateral eye blindness. 13. Coronary artery disease and cardiac stent placement. 14. History of EtOH and cocaine abuse in the past. 15. Dysphagia abd CT reviewed repeat labs COVID positive swallow eval appreciated on diet Subjective ROS Limited/Unobtainable: No Allergies: Coded Allergies: NO KNOWN ALLERGIES (Unverified Allergy, Unknown, 10/15/15) Objective Last 24 Hour Vital Signs Date Time Temp Pulse Resp B/P (MAP) Pulse Ox O2 Delivery O2 Flow Rate FiO2 03/17/20 09:42 90 111/66 03/17/20 08:00 98.6 90 19 111/66 (81) 97 03/17/20 04:00 97.7 80 20 143/64 (90) 99 03/17/20 00:00 97.8 84 145/92 (109) 03/16/20 22:30 96.4 84 18 92/48 (63) 98 03/16/20 21:12 96 Room Air 21 03/16/20 21:12 74 20 96 Room Air 21 03/16/20 21:00 Room Air 03/16/20 16:00 97.0 76 20 152/72 (98) 97 03/16/20 12:00 96.4 73 19 128/69 (88) 98 Intake and Output 03/16/20 03/17/20 19:00 07:00 Intake Total 720 ml 361 ml Balance 720 ml 361 ml Intake Oral 720 ml 250 ml IV Total 111 ml # Voids 1 # Bowel Movements 1 Laboratory Tests 03/17/20 04:50: White Blood Count 10.0, Red Blood Count 4.08L, Hemoglobin 9.7L, Hematocrit 31.0L , Mean Corpuscular Volume 76L, Mean Corpuscular Hemoglobin 23.9L, Mean Corpuscular Hemoglobin Concent 31.4L, Red Cell Distribution Width 16.8H, Platelet Count 250, Mean Platelet Volume 5.6L, Neutrophils (%) (Auto) 56.9, Lymphocytes (%) (Auto) 22.1, Monocytes (%) (Auto) 15.5H, Eosinophils (%) (Auto) 4.3H, Basophils (%) (Auto) 1.2, Sodium Level 140, Potassium Level 4.1, Chloride Level 97L, Carbon Dioxide Level 32, Anion Gap 11, Blood Urea Nitrogen 51H, Creatinine 7.3H, Estimat Glomerular Filtration Rate 6.8, Glucose Level 102, Calcium Level 9.8 Height (Feet): 5 Height (Inches): 7.00 Weight (Pounds): 217 General Appearance: no apparent distress EENT: PERRL/EOMI Neck: supple Cardiovascular: normal rate Respiratory/Chest: decreased breath sounds Abdomen: normal bowel sounds, non tender, soft Extremities: non-tender Jamison Garcia MD Mar 17, 2020 11:15
--- NOTE | 2020-03-17 11:56 | Infectious Diseases Prog Note ---
Assessment/Plan Assessment/Plan The patient is a 64-year-old female with Proteus and VRE bacteremia Persistent/recurrent GPC bacteremia (despite 6 weeks of treatment)- highgly suspicious for endovascular source (ie AVF infection, endocarditis) 03/09 Bcx 02/27 VRE, S. epi, 03/10 Bcx 4 P . mirabilis, probable amp-C; VRE, CONS; 03/11 Bcx 2/2 sets S.epi; 03/15 1 GPC clusters, 11/29 GPC chains -CT abd/p: Cardiomegaly. Evidence of left ventricular muscular hypertrophy. Bilateral lower lobe and inferior lingular ill-defined parenchymal infiltrates, likely pneumonia but could indicate a component of pulmonary edema. Incidental findings as noted, including right renal cyst, evidence of prior hysterectomy, pacemaker, PICC, coronary stents and calcifications Enlarged heterogeneous thyroid. No acute abdominal process cholelithiasis and/ or gallbladder sludge. Diastasis of the rectus abdominis tendon and small fat- containing ventral hernia, also demonstrated previously. Confirmed COVID-19. 02/19 SARS-CoV PCR positive. -1st repeat neg 03/11 ; 2nd repeat is positive 03/13 Pneumonia Mild leukocytosis, SP -03/09 u/a wbc 40-60, nit neg, leuk +3 Fever, recurrent, SP VDRF- sp self extubation 03/05, now on at [facility] - likely 2/2 COVID, less likely active bacterial superinfection since pt just completed empiric course of antibacterial therapy and sputum cx NG -03/07 CXR: Persistent vascular congestion and suspected interstitial edema.Cardiomegaly with pacer. - 03/01 CXR: Worsening bilateral hazy parenchymal infiltrates, versus edema - 02/20 CXR: Mild pulmonary vascular congestion with subtle bilateral haziness, not significantly changed.Possible tiny pleural effusions. Cardiomegaly. - Bcx ngtd - sp cx normal gui Less likely UTI u/a wbc tnct, nit +, leuk +3; ucx cindy(colonizer) Hx of positive blood culture CONS ,persistent; recurrent 02/04 BCx: CoNS 3/ Bc: (1/2)CoNS and Citrobacter 01/27 , 02/01 Bc: CoNS - (outside facility, # of the +ve cultures are not clear) A 2D echo from outside facility did not show any evidence of vegetation as per Carido pt is high risk for CLAY: ( last admission ) Diabetes. CHF. ESRD. Hypertension. Obesity. 03/08 SP PICC Line placement PLAN: Continue Cefepime #3(abx d #6) for Proteus bacteremia Daptomycin #6 for VRE and S.epi bacteremia 03/15 SP Meropenem #4 03/12/20 SP IV Vancomycin #2 03/08 SP vancomycin, day # ? ( will Rx for probable SBE) 02/27 SP plaquenil+azithromycin #5 02/25 SP Ertapenem #8 02/24 DC amikacin #6 Monitor CBC. Monitor BMP. 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 Subjective Allergies: Coded Allergies: NO KNOWN ALLERGIES (Unverified Allergy, Unknown, 10/15/15) Subjective afebrile at RA no leukocytosis persists bacteremic echo pending Objective Vital Signs Last 24 Hour Vital Signs Date Time Temp Pulse Resp B/P (MAP) Pulse Ox O2 Delivery O2 Flow Rate FiO2 03/17/20 11:16 Room Air 03/17/20 09:42 90 111/66 03/17/20 08:00 98.6 90 19 111/66 (81) 97 03/17/20 04:00 97.7 80 20 143/64 (90) 99 03/17/20 00:00 97.8 84 145/92 (109) 03/16/20 22:30 96.4 84 18 92/48 (63) 98 03/16/20 21:12 96 Room Air 21 03/16/20 21:12 74 20 96 Room Air 21 03/16/20 21:00 Room Air 03/16/20 16:00 97.0 76 20 152/72 (98) 97 03/16/20 12:00 96.4 73 19 128/69 (88) 98 Height (Feet): 5 Height (Inches): 7.00 Weight (Pounds): 217 Objective not seen to limit COVID19 exposure Microbiology Date/Time Source Procedure Growth Status 03/15/20 18:14 Blood Blood Culture - Preliminary Resulted 03/15/20 18:14 Blood Blood Culture - Preliminary Resulted Laboratory Tests Test 03/17/20 04:50 White Blood Count 10.0 K/UL (4.8-10.8) Red Blood Count 4.08 M/UL (4.20-5.40) L Hemoglobin 9.7 G/DL (12.0-16.0) L Hematocrit 31.0 % (37.0-47.0) L Mean Corpuscular Volume 76 FL (80-99) L Mean Corpuscular Hemoglobin 23.9 PG (27.0-31.0) L Mean Corpuscular Hemoglobin Concent 31.4 G/DL (32.0-36.0) L Red Cell Distribution Width 16.8 % (11.6-14.8) H Platelet Count 250 K/UL (150-450) Mean Platelet Volume 5.6 FL (6.5-10.1) L Neutrophils (%) (Auto) 56.9 % (45.0-75.0) Lymphocytes (%) (Auto) 22.1 % (20.0-45.0) Monocytes (%) (Auto) 15.5 % (1.0-10.0) H Eosinophils (%) (Auto) 4.3 % (0.0-3.0) H Basophils (%) (Auto) 1.2 % (0.0-2.0) Sodium Level 140 MMOL/L (136-145) Potassium Level 4.1 MMOL/L (3.5-5.1) Chloride Level 97 MMOL/L (98-107) L Carbon Dioxide Level 32 MMOL/L (21-32) Anion Gap 11 mmol/L (5-15) Blood Urea Nitrogen 51 mg/dL (7-18) H Creatinine 7.3 MG/DL (0.55-1.30) H Estimat Glomerular Filtration Rate 6.8 mL/min (>60) Glucose Level 102 MG/DL (74-106) Calcium Level 9.8 MG/DL (8.5-10.1) Current Medications Medications (Trade) Dose Ordered Sig/Josi Route PRN Reason Start Time Stop Time Status Last Admin Dose Admin Acetaminophen (Tylenol) 650 mg Q4H PRN GT fever 03/10/20 23:45 04/07/20 23:39 Albuterol/ Ipratropium (Combivent Respimat) 1 puff Q4H PRN INH Shortness of Breath 03/10/20 23:45 04/07/20 23:40 Amlodipine Besylate (Norvasc) 2.5 mg DAILY NG 03/12/20 09:00 04/11/20 08:59 03/17/20 09:42 Atorvastatin Calcium (Lipitor) 10 mg BEDTIME NG 03/11/20 21:00 05/25/20 20:59 03/16/20 21:43 Cefepime HCl 500 mg/Dextrose 55 ml @ 110 mls/hr Q24H IVPB 03/15/20 21:00 03/22/20 20:59 03/16/20 21:45 Chlorhexidine Gluconate (Jenny-Hex 2%) 1 applic DAILY@2000 TOPIC 03/14/20 20:00 06/12/20 19:59 03/15/20 21:20 Daptomycin 800 mg/ Sodium Chloride 55 ml @ 100 mls/hr Q48H IV 03/13/20 21:00 03/20/20 20:59 03/15/20 21:51 Epoetin Jose De Jesus (Epoetin Jose De Jesus(ESRD on dialysis)) 8,000 unit SUN-SUN-SUN SUBQ 03/15/20 21:00 06/13/20 20:59 03/15/20 21:51 Heparin Sodium (Porcine) (Heparin 5000 units/ml) 5,000 units EVERY 12 HOURS SUBQ 03/11/20 09:00 04/10/20 08:59 03/17/20 09:45 Heparin Sodium/ Sodium Chloride (Heparin 1000 units/500ml Premix) 1,000 unit ONCE PRN IV PICC LINE PLACEMENT 03/15/20 12:00 03/17/20 11:59 Insulin Aspart (NovoLOG) Q6HR SUBQ 03/11/20 00:00 05/20/20 12:29 03/16/20 23:22 Lidocaine HCl (Xylocaine 1% 30ml) 30 ml ONCE PRN INJ PICC LINE PLACEMENT 03/15/20 12:00 03/17/20 11:59 Morphine Sulfate (Morphine Sulfate) 4 mg Q6H PRN IVP For Pain 03/15/20 12:15 03/22/20 12:14 Ondansetron HCl (Zofran) 4 mg Q6H PRN IVP Nausea & Vomiting 03/11/20 00:30 03/26/20 06:29 Pantoprazole (Protonix) 40 mg EVERY 12 HOURS ORAL 03/17/20 21:00 04/16/20 20:59 Pyridoxine HCl (Vitamin B6) 50 mg DAILY ORAL 03/18/20 09:00 04/17/20 08:59 Sevelamer Carbonate (Renvela) 800 mg Q6HR NG 03/11/20 00:00 05/25/20 11:59 03/17/20 05:38 Thiamine HCl (Vitamin B1) 100 mg DAILY ORAL 03/18/20 09:00 04/17/20 08:59 Susi Vanegas M.D. Mar 17, 2020 11:56
[2020-03-17 12:00] VITALS: BP 124/78
[2020-03-17] MEDS ORDERED: Heparin 1000 units/ml 1ml Vial INJ SCH (12:04)
--- NOTE | 2020-03-17 13:11 | Pulmonology Progress Note ---
Assessment/Plan Problems: (1) At high risk for aspiration (2) Sepsis (3) Acute respiratory failure Assessment & Plan: extubated now (4) Accelerated hypertension (5) COVID-19 virus infection (6) ESRD (end stage renal disease) on dialysis (7) Diabetes (8) Patient is Yarsanism (9) Morbid obesity Assessment/Plan still confused, pulled NG tube swallow study done, will need Barium swallow wbc still high improving on isolation afebrile in the last few days f/u cultures respiratory treatment Subjective ROS Limited/Unobtainable: No Constitutional: Reports: no symptoms HEENT: Repors: no symptoms Respiratory: Reports: no symptoms Allergies: Coded Allergies: NO KNOWN ALLERGIES (Unverified Allergy, Unknown, 10/15/15) All Systems: reviewed and negative except above Objective Last 24 Hour Vital Signs Date Time Temp Pulse Resp B/P (MAP) Pulse Ox O2 Delivery O2 Flow Rate FiO2 03/17/20 11:16 Room Air 03/17/20 09:42 90 111/66 03/17/20 08:00 98.6 90 19 111/66 (81) 97 03/17/20 04:00 97.7 80 20 143/64 (90) 99 03/17/20 00:00 97.8 84 145/92 (109) 03/16/20 22:30 96.4 84 18 92/48 (63) 98 03/16/20 21:12 96 Room Air 21 03/16/20 21:12 74 20 96 Room Air 21 03/16/20 21:00 Room Air 03/16/20 16:00 97.0 76 20 152/72 (98) 97 Intake and Output 03/16/20 03/17/20 19:00 07:00 Intake Total 720 ml 361 ml Output Total 3000 ml Balance 720 ml -2639 ml Intake Oral 720 ml 250 ml IV Total 111 ml Hemodialysis UF 3000 ml # Voids 1 # Bowel Movements 1 Objective swallow study done, results reviewed General Appearance: no acute distress, other - morbidly obese AA female HEENT: normocephalic, atraumatic Respiratory/Chest: decreased breath sounds Breasts: no masses Cardiovascular: normal rate, other - LUE PICC intact Abdomen: normal bowel sounds, soft, non tender - obese Genitourinary: normal external genitalia Extremities: other - trace edema BLE, RUE AV shunt + bruit/thrill Skin: no rash Neurologic/Psychiatric: abnormal gait, alert, responsive Lymphatic: no neck adenopathy Musculoskeletal: atrophy - BLE Microbiology Date/Time Source Procedure Growth Status 03/16/20 17:25 Blood Blood Culture - Preliminary Resulted 03/15/20 18:14 Blood Blood Culture - Preliminary Resulted 03/15/20 18:14 Blood Blood Culture - Preliminary Resulted Laboratory Tests 03/17/20 04:50: White Blood Count 10.0, Red Blood Count 4.08L, Hemoglobin 9.7L, Hematocrit 31.0L , Mean Corpuscular Volume 76L, Mean Corpuscular Hemoglobin 23.9L, Mean Corpuscular Hemoglobin Concent 31.4L, Red Cell Distribution Width 16.8H, Platelet Count 250, Mean Platelet Volume 5.6L, Neutrophils (%) (Auto) 56.9, Lymphocytes (%) (Auto) 22.1, Monocytes (%) (Auto) 15.5H, Eosinophils (%) (Auto) 4.3H, Basophils (%) (Auto) 1.2, Sodium Level 140, Potassium Level 4.1, Chloride Level 97L, Carbon Dioxide Level 32, Anion Gap 11, Blood Urea Nitrogen 51H, Creatinine 7.3H, Estimat Glomerular Filtration Rate 6.8, Glucose Level 102, Calcium Level 9.8 Current Medications Medications (Trade) Dose Ordered Sig/Josi Route PRN Reason Start Time Stop Time Status Last Admin Dose Admin Acetaminophen (Tylenol) 650 mg Q4H PRN GT fever 03/10/20 23:45 04/07/20 23:39 Albuterol/ Ipratropium (Combivent Respimat) 1 puff Q4H PRN INH Shortness of Breath 03/10/20 23:45 04/07/20 23:40 Amlodipine Besylate (Norvasc) 2.5 mg DAILY NG 03/12/20 09:00 04/11/20 08:59 03/17/20 09:42 Atorvastatin Calcium (Lipitor) 10 mg BEDTIME NG 03/11/20 21:00 05/25/20 20:59 03/16/20 21:43 Cefepime HCl 500 mg/Dextrose 55 ml @ 110 mls/hr Q24H IVPB 03/15/20 21:00 03/22/20 20:59 03/16/20 21:45 Chlorhexidine Gluconate (Jenny-Hex 2%) 1 applic DAILY@2000 TOPIC 03/14/20 20:00 06/12/20 19:59 03/15/20 21:20 Daptomycin 800 mg/ Sodium Chloride 55 ml @ 100 mls/hr Q48H IV 03/13/20 21:00 03/20/20 20:59 03/15/20 21:51 Epoetin Jose De Jesus (Epoetin Jose De Jesus(ESRD on dialysis)) 8,000 unit SUN-SUN-SUN SUBQ 03/15/20 21:00 06/13/20 20:59 03/15/20 21:51 Heparin Sodium (Porcine) (Heparin 5000 units/ml) 5,000 units EVERY 12 HOURS SUBQ 03/11/20 09:00 04/10/20 08:59 03/17/20 09:45 Heparin Sodium (Porcine) (Heparin) 2,000 unit ONCE PRN INJ radiology 03/18/20 06:00 03/18/20 23:59 Insulin Aspart (NovoLOG) Q6HR SUBQ 03/11/20 00:00 05/20/20 12:29 03/17/20 12:00 Morphine Sulfate (Morphine Sulfate) 4 mg Q6H PRN IVP For Pain 03/15/20 12:15 03/22/20 12:14 Ondansetron HCl (Zofran) 4 mg Q6H PRN IVP Nausea & Vomiting 03/11/20 00:30 03/26/20 06:29 Pantoprazole (Protonix) 40 mg EVERY 12 HOURS ORAL 03/17/20 21:00 04/16/20 20:59 Pyridoxine HCl (Vitamin B6) 50 mg DAILY ORAL 03/18/20 09:00 04/17/20 08:59 Sevelamer Carbonate (Renvela) 800 mg Q6HR NG 03/11/20 00:00 05/25/20 11:59 03/17/20 12:49 Thiamine HCl (Vitamin B1) 100 mg DAILY ORAL 03/18/20 09:00 04/17/20 08:59 Meghana Murillo MD Mar 17, 2020 13:11
--- NOTE | 2020-03-17 14:24 | NUR ---
NURSE NOTES: Patient scheduled for Hemodialysis 03/18/20; I called [facility] spoke with Carlitos regarding this scheduled for Hemodialysis;
--- NOTE | 2020-03-17 15:32 | NUR ---
CASE MANAGEMENT:REVIEW SI;SEPSIS. ACUTE RESPIRATORY FAILURE. ESRD ON HD. COVID-19 INFECTION (03/13/20 DETECTED) 98.6 90 20 143/64 97% ON RA BUN 51 CR 7.3 IS;CEFEPIME IV Q24 HRS DAPTOMYCIN IV Q48 HRS PROTONIX PO Q12 HRS NORVASC PO QD MORPHINE SULFATE IV Q6 HRS HEPARIN IV THIAMINE IV Q24 HRS MED SURG STATUS DCP;FROM [facility]
[2020-03-17 16:00] VITALS: BP 128/74
--- NOTE | 2020-03-17 19:17 | NUR ---
HAND-OFF: Report given to NATHALIA Ribeiro.
[2020-03-17 20:00] VITALS: BP 134/82
[2020-03-17] MEDS: Dyna-Hex 2% Top Sol 2oz TOPIC SCH (21:02)
[2020-03-17] MEDS: Cefepime HCl 500 MG in D5W 55 ML IVPB SCH (21:04)
[2020-03-17] MEDS: NS IV SCH (21:04)
[2020-03-17] MEDS: DAPTOMYCIN IV SCH (21:04)
[2020-03-17] MEDS: Epoetin Alfa-EPBX(ESRD on dialysis)4000 units/ml vial SUBQ SCH (21:06)
[2020-03-18] VITALS: BP 130/78
[2020-03-18] MEDS: Renvela 800mg Pkt NG SCH ×5 (00:55→17:39)
[2020-03-18 04:00] VITALS: BP 138/65
[2020-03-18] MEDS: NovoLOG Insulin Flexpen SUBQ SCH ×4 (05:40→18:00)
[2020-03-18] MEDS ORDERED: Heparin 1000 units/ml 1ml Vial INJ PRN (06:00)
[2020-03-18 06:07] LABS: BASOPHILS % (AUTO) 1.3 % (0.0-2.0); EOSINOPHILS % (AUTO) 6.1 % (0.0-3.0); HEMATOCRIT 31.8 % (37.0-47.0); HEMOGLOBIN 9.7 G/DL (12.0-16.0); LYMPHOCYTES % (AUTO) 27.3 % (20.0-45.0); MEAN CORPUSCULAR VOLUME 77 FL (80-99); MONOCYTES % (AUTO) 15.7 % (1.0-10.0); NEUTROPHILS % (AUTO) 49.5 % (45.0-75.0); PLATELET COUNT 238 K/UL (150-450); RED BLOOD COUNT 4.12 M/UL (4.20-5.40); RED CELL DISTRIBUTION WIDTH 17.5 % (11.6-14.8); WHITE BLOOD COUNT 9.2 K/UL (4.8-10.8)
[2020-03-18 06:41] LABS: ANION GAP 10 mmol/L (5-15); BLOOD UREA NITROGEN 57 mg/dL (7-18); CALCIUM 9.7 MG/DL (8.5-10.1); CARBON DIOXIDE 33 MMOL/L (21-32); CHLORIDE 97 MMOL/L (98-107); POTASSIUM 4.3 MMOL/L (3.5-5.1); SODIUM 140 MMOL/L (136-145)
[2020-03-18 06:51] LABS: ALANINE AMINOTRANSFERASE 28 U/L (12-78); ALBUMIN 3.7 G/DL (3.4-5.0); ALKALINE PHOSPHATASE 221 U/L (46-116); ASPARTATE AMINO TRANSFERASE 37 U/L (15-37); BILIRUBIN,DIRECT 0.3 MG/DL (0.0-0.3); BILIRUBIN,TOTAL 0.9 MG/DL (0.2-1.0); PHOSPHORUS 5.5 MG/DL (2.5-4.9)
--- NOTE | 2020-03-18 07:44 | NUR ---
HAND-OFF: Report given to Isabella Meneses RN.
[2020-03-18 08:00] VITALS: BP 175/69
--- NOTE | 2020-03-18 08:32 | NUR ---
NURSE NOTES: Patient sleeping in supine position, on room air, bed in lowest position, call light within reach, updated signage in room to read blind and hard of hearing, side rails up x 3, on room air, in no apparent distress
[2020-03-18] MEDS: Heparin 5000 units/ml inj SUBQ SCH ×2 (09:00→20:59)
--- NOTE | 2020-03-18 10:06 | Nephrology Progress Note ---
Assessment/Plan Problem List: (1) Acute respiratory failure (2) ESRD (end stage renal disease) on dialysis (3) UTI (urinary tract infection) (4) Patient is Jainism (5) Pacemaker (6) Diabetes (7) Obesity (BMI 30-39.9) Assessment ARDS (adult respiratory distress syndrome) Fever Sepsis UTI (urinary tract infection) Respiratory failure, intubated on ventilator Thrombocytopenia Lymphopenia End stage renal disease on dialysis. Has a right upper arm dialysis fistula as Acces . Getting dialysis Sunday. morbid obesity Anemia / Jehova's witness CAD previous stent HTN- hypertensive urgency upon arrival to [facility]. s/p AVG DM 2 bilateral eye blindness h/o CHF Pacemaker Plan NG tube is out not takes p.o., will change all IV medication to p.o. Patient extubated March 04, and remains extubated, now in MedSurg floor Patient positive for Covid 19 Per ID and pulmonary, Last dialyzed March 16, next March 18 EPO, thiamin and b6 Phos binders NGT feeding per consultants Remains full code at this time Subjective ROS Limited/Unobtainable: No Constitutional: Reports: malaise, weakness Objective Objective Last 24 Hour Vital Signs Date Time Temp Pulse Resp B/P (MAP) Pulse Ox O2 Delivery O2 Flow Rate FiO2 03/18/20 08:00 98.9 93 18 175/69 (104) 95 03/18/20 04:00 96.8 77 20 138/65 (89) 93 03/18/20 00:00 98.7 89 19 130/78 (95) 96 03/17/20 21:00 Room Air 03/17/20 20:00 95 Room Air 21 03/17/20 20:00 80 20 95 Room Air 21 03/17/20 20:00 97.3 80 19 134/82 (99) 97 03/17/20 16:00 98.2 87 17 128/74 (92) 98 03/17/20 12:00 98.4 88 18 124/78 (93) 99 03/17/20 11:16 Room Air Intake and Output 03/17/20 03/18/20 19:00 07:00 Intake Total 460 ml Balance 460 ml Intake Oral 350 ml IV Total 110 ml # Voids 1 Laboratory Tests 03/18/20 05:10: White Blood Count 9.2, Red Blood Count 4.12L, Hemoglobin 9.7L, Hematocrit 31.8L , Mean Corpuscular Volume 77L, Mean Corpuscular Hemoglobin 23.5L, Mean Corpuscular Hemoglobin Concent 30.4L, Red Cell Distribution Width 17.5H, Platelet Count 238, Mean Platelet Volume 5.7L, Neutrophils (%) (Auto) 49.5, Lymphocytes (%) (Auto) 27.3, Monocytes (%) (Auto) 15.7H, Eosinophils (%) (Auto) 6.1H, Basophils (%) (Auto) 1.3, Sodium Level 140, Potassium Level 4.3, Chloride Level 97L, Carbon Dioxide Level 33H, Anion Gap 10, Blood Urea Nitrogen 57H, Creatinine 9.0H, Estimat Glomerular Filtration Rate 5.5, Glucose Level 101, Calcium Level 9.7, Phosphorus Level 5.5H, Magnesium Level 3.2H, Total Bilirubin 0.9, Direct Bilirubin 0.3, Aspartate Amino Transf (AST/SGOT) 37, Alanine Aminotransferase (ALT/SGPT) 28, Alkaline Phosphatase 221H, Total Protein 8.1, Albumin 3.7 Height (Feet): 5 Height (Inches): 7.00 Weight (Pounds): 216 General Appearance: no apparent distress Objective No change Bryan Hunter MD Mar 18, 2020 10:06
[2020-03-18] MEDS: Pyridoxine 50mg tab ORAL SCH (10:21)
[2020-03-18] MEDS: Thiamine 100mg tab ORAL SCH (10:21)
--- NOTE | 2020-03-18 11:37 | General Progress Note ---
Assessment/Plan Status: unchanged Assessment/Plan: 1. Diabetes. 2. End-stage renal disease, on hemodialysis. 3. Chronic anemia. 4. Obesity. 5. Gastritis. 6. Kidney stones. 7. Abdominal hernia. 8. Hiatal hernia. 9. Cardiomegaly. 10. Hypercholesterolemia. 11. Hypertension. 12. Bilateral eye blindness. 13. Coronary artery disease and cardiac stent placement. 14. History of EtOH and cocaine abuse in the past. 15. Dysphagia abd CT reviewed repeat labs COVID positive swallow eval appreciated on diet Subjective Allergies: Coded Allergies: NO KNOWN ALLERGIES (Unverified Allergy, Unknown, 10/15/15) Objective Last 24 Hour Vital Signs Date Time Temp Pulse Resp B/P (MAP) Pulse Ox O2 Delivery O2 Flow Rate FiO2 03/18/20 09:00 93 175/69 03/18/20 08:00 98.9 93 18 175/69 (104) 95 03/18/20 04:00 96.8 77 20 138/65 (89) 93 03/18/20 00:00 98.7 89 19 130/78 (95) 96 03/17/20 21:00 Room Air 03/17/20 20:00 95 Room Air 21 03/17/20 20:00 80 20 95 Room Air 21 03/17/20 20:00 97.3 80 19 134/82 (99) 97 03/17/20 16:00 98.2 87 17 128/74 (92) 98 03/17/20 12:00 98.4 88 18 124/78 (93) 99 Intake and Output 03/17/20 03/18/20 19:00 07:00 Intake Total 460 ml Balance 460 ml Intake Oral 350 ml IV Total 110 ml # Voids 1 Laboratory Tests 03/18/20 05:10: White Blood Count 9.2, Red Blood Count 4.12L, Hemoglobin 9.7L, Hematocrit 31.8L , Mean Corpuscular Volume 77L, Mean Corpuscular Hemoglobin 23.5L, Mean Corpuscular Hemoglobin Concent 30.4L, Red Cell Distribution Width 17.5H, Platelet Count 238, Mean Platelet Volume 5.7L, Neutrophils (%) (Auto) 49.5, Lymphocytes (%) (Auto) 27.3, Monocytes (%) (Auto) 15.7H, Eosinophils (%) (Auto) 6.1H, Basophils (%) (Auto) 1.3, Sodium Level 140, Potassium Level 4.3, Chloride Level 97L, Carbon Dioxide Level 33H, Anion Gap 10, Blood Urea Nitrogen 57H, Creatinine 9.0H, Estimat Glomerular Filtration Rate 5.5, Glucose Level 101, Calcium Level 9.7, Phosphorus Level 5.5H, Magnesium Level 3.2H, Total Bilirubin 0.9, Direct Bilirubin 0.3, Aspartate Amino Transf (AST/SGOT) 37, Alanine Aminotransferase (ALT/SGPT) 28, Alkaline Phosphatase 221H, Total Protein 8.1, Albumin 3.7 Height (Feet): 5 Height (Inches): 7.00 Weight (Pounds): 216 General Appearance: no apparent distress EENT: normal ENT inspection Neck: supple Respiratory/Chest: decreased breath sounds Abdomen: normal bowel sounds, non tender, soft Extremities: non-tender Jamison Garcia MD Mar 18, 2020 11:36
[2020-03-18 12:00] VITALS: BP 112/58
--- NOTE | 2020-03-18 12:16 | Pulmonology Progress Note ---
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 (9) Morbid obesity Assessment/Plan pulled out her picc line BC still positive still confused, pulled NG tube swallow study done, will need Barium swallow wbc still high improving on isolation afebrile in the last few days f/u cultures respiratory treatment Subjective ROS Limited/Unobtainable: Yes Constitutional: Reports: no symptoms HEENT: Repors: no symptoms Respiratory: Reports: no symptoms Allergies: Coded Allergies: NO KNOWN ALLERGIES (Unverified Allergy, Unknown, 10/15/15) All Systems: reviewed and negative except above Objective Last 24 Hour Vital Signs Date Time Temp Pulse Resp B/P (MAP) Pulse Ox O2 Delivery O2 Flow Rate FiO2 03/18/20 09:00 93 175/69 03/18/20 08:00 98.9 93 18 175/69 (104) 95 03/18/20 04:00 96.8 77 20 138/65 (89) 93 03/18/20 00:00 98.7 89 19 130/78 (95) 96 03/17/20 21:00 Room Air 03/17/20 20:00 95 Room Air 21 03/17/20 20:00 80 20 95 Room Air 21 03/17/20 20:00 97.3 80 19 134/82 (99) 97 03/17/20 16:00 98.2 87 17 128/74 (92) 98 Intake and Output 03/17/20 03/18/20 19:00 07:00 Intake Total 460 ml Balance 460 ml Intake Oral 350 ml IV Total 110 ml # Voids 1 Objective swallow study done, results reviewed General Appearance: no acute distress, other - morbidly obese AA female HEENT: normocephalic, atraumatic Respiratory/Chest: decreased breath sounds Breasts: no masses Cardiovascular: normal rate, other - LUE PICC intact Abdomen: normal bowel sounds, soft, non tender - obese Genitourinary: normal external genitalia Extremities: other - trace edema BLE, RUE AV shunt + bruit/thrill Skin: no rash Neurologic/Psychiatric: abnormal gait, alert, responsive Lymphatic: no neck adenopathy Musculoskeletal: atrophy - BLE Microbiology Date/Time Source Procedure Growth Status 03/16/20 17:25 Blood Blood Culture - Preliminary Resulted 03/16/20 17:25 Blood Blood Culture - Preliminary Streptococcus Species Resulted 03/15/20 18:14 Blood Blood Culture - Preliminary Streptococcus Species Resulted 03/15/20 18:14 Blood Blood Culture - Preliminary Gram Positive Cocci Resulted Laboratory Tests 03/18/20 05:10: White Blood Count 9.2, Red Blood Count 4.12L, Hemoglobin 9.7L, Hematocrit 31.8L , Mean Corpuscular Volume 77L, Mean Corpuscular Hemoglobin 23.5L, Mean Corpuscular Hemoglobin Concent 30.4L, Red Cell Distribution Width 17.5H, Platelet Count 238, Mean Platelet Volume 5.7L, Neutrophils (%) (Auto) 49.5, Lymphocytes (%) (Auto) 27.3, Monocytes (%) (Auto) 15.7H, Eosinophils (%) (Auto) 6.1H, Basophils (%) (Auto) 1.3, Sodium Level 140, Potassium Level 4.3, Chloride Level 97L, Carbon Dioxide Level 33H, Anion Gap 10, Blood Urea Nitrogen 57H, Creatinine 9.0H, Estimat Glomerular Filtration Rate 5.5, Glucose Level 101, Calcium Level 9.7, Phosphorus Level 5.5H, Magnesium Level 3.2H, Total Bilirubin 0.9, Direct Bilirubin 0.3, Aspartate Amino Transf (AST/SGOT) 37, Alanine Aminotransferase (ALT/SGPT) 28, Alkaline Phosphatase 221H, Total Protein 8.1, Albumin 3.7 Current Medications Medications (Trade) Dose Ordered Sig/Josi Route PRN Reason Start Time Stop Time Status Last Admin Dose Admin Acetaminophen (Tylenol) 650 mg Q4H PRN GT fever 03/10/20 23:45 04/07/20 23:39 Albuterol/ Ipratropium (Combivent Respimat) 1 puff Q4H PRN INH Shortness of Breath 03/10/20 23:45 04/07/20 23:40 Amlodipine Besylate (Norvasc) 2.5 mg DAILY NG 03/12/20 09:00 04/11/20 08:59 03/17/20 09:42 Atorvastatin Calcium (Lipitor) 10 mg BEDTIME NG 03/11/20 21:00 05/25/20 20:59 03/17/20 21:03 Cefepime HCl 500 mg/Dextrose 55 ml @ 110 mls/hr Q24H IVPB 03/15/20 21:00 03/22/20 20:59 03/17/20 21:04 Chlorhexidine Gluconate (Jenny-Hex 2%) 1 applic DAILY@2000 TOPIC 03/14/20 20:00 06/12/20 19:59 03/17/20 21:02 Daptomycin 800 mg/ Sodium Chloride 55 ml @ 100 mls/hr Q48H IV 03/13/20 21:00 03/20/20 20:59 03/17/20 21:04 Epoetin Jose De Jesus (Epoetin Jose De Jesus(ESRD on dialysis)) 8,000 unit SUN-SUN-SUN SUBQ 03/15/20 21:00 06/13/20 20:59 03/17/20 21:06 Heparin Sodium (Porcine) (Heparin 5000 units/ml) 5,000 units EVERY 12 HOURS SUBQ 03/11/20 09:00 04/10/20 08:59 03/17/20 21:40 Heparin Sodium (Porcine) (Heparin) 2,000 unit ONCE PRN INJ radiology 03/18/20 06:00 03/18/20 23:59 Insulin Aspart (NovoLOG) Q6HR SUBQ 03/11/20 00:00 05/20/20 12:29 03/17/20 12:00 Morphine Sulfate (Morphine Sulfate) 4 mg Q6H PRN IVP For Pain 03/15/20 12:15 03/22/20 12:14 Ondansetron HCl (Zofran) 4 mg Q6H PRN IVP Nausea & Vomiting 03/11/20 00:30 03/26/20 06:29 Pantoprazole (Protonix) 40 mg EVERY 12 HOURS ORAL 03/17/20 21:00 04/16/20 20:59 03/18/20 10:21 Pyridoxine HCl (Vitamin B6) 50 mg DAILY ORAL 03/18/20 09:00 04/17/20 08:59 03/18/20 10:21 Sevelamer Carbonate (Renvela) 800 mg Q6HR NG 03/11/20 00:00 03/18/20 13:00 03/18/20 05:16 Sevelamer Carbonate (Renvela) 1,600 mg TID NG 03/18/20 13:00 05/25/20 11:59 Thiamine HCl (Vitamin B1) 100 mg DAILY ORAL 03/18/20 09:00 04/17/20 08:59 03/18/20 10:21 Meghana Murillo MD Mar 18, 2020 12:16
--- NOTE | 2020-03-18 12:23 | General Progress Note ---
Assessment/Plan Problem List: (1) Obesity (BMI 30-39.9) ICD Codes: E66.9 - Obesity, unspecified SNOMED: 606449132, 155921054 (2) COVID-19 virus infection ICD Codes: U07.1 - COVID-19 SNOMED: 848046920 (3) Acute respiratory failure ICD Codes: J96.00 - Acute respiratory failure, unspecified whether with hypoxia or hypercapnia SNOMED: 24832692 (4) Blindness of both eyes ICD Codes: H54.0 - Blindness SNOMED: 980800490 (5) ESRD (end stage renal disease) on dialysis ICD Codes: N18.6 - End stage renal disease; Z99.2 - Dependence on renal dialysis SNOMED: 693771271 (6) Anemia ICD Codes: D64.9 - Anemia, unspecified SNOMED: 005667416 (7) Diabetes ICD Codes: E11.9 - Type 2 diabetes mellitus without complications SNOMED: 04533350 (8) AMS (altered mental status) ICD Codes: R41.82 - Altered mental status, unspecified SNOMED: 775153737 Status: unchanged Assessment/Plan: vent abx dialysis cbc bmp am ltach eval Subjective Constitutional: Reports: weakness Allergies: Coded Allergies: NO KNOWN ALLERGIES (Unverified Allergy, Unknown, 10/15/15) All Systems: reviewed and negative except above Subjective lethargic sleepy Objective Last 24 Hour Vital Signs Date Time Temp Pulse Resp B/P (MAP) Pulse Ox O2 Delivery O2 Flow Rate FiO2 03/18/20 09:00 93 175/69 03/18/20 08:00 98.9 93 18 175/69 (104) 95 03/18/20 04:00 96.8 77 20 138/65 (89) 93 03/18/20 00:00 98.7 89 19 130/78 (95) 96 03/17/20 21:00 Room Air 03/17/20 20:00 95 Room Air 21 03/17/20 20:00 80 20 95 Room Air 21 03/17/20 20:00 97.3 80 19 134/82 (99) 97 03/17/20 16:00 98.2 87 17 128/74 (92) 98 Intake and Output 03/17/20 03/18/20 19:00 07:00 Intake Total 460 ml Balance 460 ml Intake Oral 350 ml IV Total 110 ml # Voids 1 Laboratory Tests 03/18/20 05:10: White Blood Count 9.2, Red Blood Count 4.12L, Hemoglobin 9.7L, Hematocrit 31.8L , Mean Corpuscular Volume 77L, Mean Corpuscular Hemoglobin 23.5L, Mean Corpuscular Hemoglobin Concent 30.4L, Red Cell Distribution Width 17.5H, Platelet Count 238, Mean Platelet Volume 5.7L, Neutrophils (%) (Auto) 49.5, Lymphocytes (%) (Auto) 27.3, Monocytes (%) (Auto) 15.7H, Eosinophils (%) (Auto) 6.1H, Basophils (%) (Auto) 1.3, Sodium Level 140, Potassium Level 4.3, Chloride Level 97L, Carbon Dioxide Level 33H, Anion Gap 10, Blood Urea Nitrogen 57H, Creatinine 9.0H, Estimat Glomerular Filtration Rate 5.5, Glucose Level 101, Calcium Level 9.7, Phosphorus Level 5.5H, Magnesium Level 3.2H, Total Bilirubin 0.9, Direct Bilirubin 0.3, Aspartate Amino Transf (AST/SGOT) 37, Alanine Aminotransferase (ALT/SGPT) 28, Alkaline Phosphatase 221H, Total Protein 8.1, Albumin 3.7 Height (Feet): 5 Height (Inches): 7.00 Weight (Pounds): 216 General Appearance: lethargic EENT: normal ENT inspection Neck: normal alignment Cardiovascular: normal rate, regular rhythm Respiratory/Chest: no respiratory distress, no accessory muscle use Extremities: normal inspection Skin: normal pigmentation Roderick Henning DO Mar 18, 2020 12:23
[2020-03-18] MEDS ORDERED: Heparin1,000 units/500ml Premix(Conc:2 units/ml) IV PRN (12:30)
[2020-03-18] MEDS ORDERED: Lidocaine 1% Plain 30 ml INJ PRN (12:30)
--- NOTE | 2020-03-18 12:42 | NUR ---
NURSE NOTES: Left message at office for Dr. Susi Vanegas informing that patient had pulled out PICC line.
--- NOTE | 2020-03-18 12:44 | Infectious Diseases Prog Note ---
Assessment/Plan Assessment/Plan The patient is a 64-year-old female with Proteus and VRE bacteremia Persistent/recurrent GPC bacteremia (despite 6 weeks of treatment)- highgly suspicious for endovascular source (ie AVF infection, endocarditis) 03/09 Bcx 02/27 VRE, S. epi, 03/10 Bcx 02/27 P . mirabilis, probable amp-C; VRE, CONS; 03/11 Bcx 2/2 sets S.epi; 03/15 1/ GPC clusters, 1/ GPC chains; 03/16 Bcx 1 /4 GPC clusters, 1/4 GPC chains -CT abd/p: Cardiomegaly. Evidence of left ventricular muscular hypertrophy. Bilateral lower lobe and inferior lingular ill-defined parenchymal infiltrates, likely pneumonia but could indicate a component of pulmonary edema. Incidental findings as noted, including right renal cyst, evidence of prior hysterectomy, pacemaker, PICC, coronary stents and calcifications Enlarged heterogeneous thyroid. No acute abdominal process cholelithiasis and/ or gallbladder sludge. Diastasis of the rectus abdominis tendon and small fat- containing ventral hernia, also demonstrated previously. Confirmed COVID-19. 02/19 SARS-CoV PCR positive. -1st repeat neg 03/11 ; 2nd repeat is positive 03/13 Pneumonia Mild leukocytosis, SP -03/09 u/a wbc 40-60, nit neg, leuk +3 Fever, recurrent, SP VDRF- sp self extubation 03/05, now on at RA - likely 2/2 COVID, less likely active bacterial superinfection since pt just completed empiric course of antibacterial therapy and sputum cx NG -03/07 CXR: Persistent vascular congestion and suspected interstitial edema.Cardiomegaly with pacer. - 03/01 CXR: Worsening bilateral hazy parenchymal infiltrates, versus edema - 02/20 CXR: Mild pulmonary vascular congestion with subtle bilateral haziness, not significantly changed.Possible tiny pleural effusions. Cardiomegaly. - Bcx ngtd - sp cx normal gui Less likely UTI u/a wbc tnct, nit +, leuk +3; ucx cindy(colonizer) Hx of positive blood culture CONS ,persistent; recurrent 02/04 BCx: CoNS 01/30 Bc: (1/2)CoNS and Citrobacter / , 02/01 Bc: CoNS - (outside facility, # of the +ve cultures are not clear) A 2D echo from outside facility did not show any evidence of vegetation as per Carido pt is high risk for CLAY: ( last admission ) Diabetes. CHF. ESRD. Hypertension. Obesity. 03/08 SP PICC Line placement; removd on 03/15 and new one placed PLAN: Continue Cefepime #4(abx d #7/-14) for Proteus bacteremia Daptomycin #7 for VRE and S.epi bacteremia; Will add Linezolid for synergisms 03/15 SP Meropenem #4 03/12/20 SP IV Vancomycin #2 03/08 SP vancomycin, day # ? ( will Rx for probable SBE) 02/27 SP plaquenil+azithromycin #5 02/25 SP Ertapenem #8 02/24 DC amikacin #6 Monitor CBC. Monitor BMP. 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 Subjective Allergies: Coded Allergies: NO KNOWN ALLERGIES (Unverified Allergy, Unknown, 10/15/15) Subjective afebrile at RA no leukocytosis persists bacteremic echo pending Objective Vital Signs Last 24 Hour Vital Signs Date Time Temp Pulse Resp B/P (MAP) Pulse Ox O2 Delivery O2 Flow Rate FiO2 03/18/20 09:00 93 175/69 03/18/20 08:00 98.9 93 18 175/69 (104) 95 03/18/20 04:00 96.8 77 20 138/65 (89) 93 03/18/20 00:00 98.7 89 19 130/78 (95) 96 03/17/20 21:00 Room Air 03/17/20 20:00 95 Room Air 21 03/17/20 20:00 80 20 95 Room Air 21 03/17/20 20:00 97.3 80 19 134/82 (99) 97 03/17/20 16:00 98.2 87 17 128/74 (92) 98 Height (Feet): 5 Height (Inches): 7.00 Weight (Pounds): 216 Objective not seen to limit COVID19 exposure Microbiology Date/Time Source Procedure Growth Status 03/16/20 17:25 Blood Blood Culture - Preliminary Resulted 03/16/20 17:25 Blood Blood Culture - Preliminary Streptococcus Species Resulted 03/15/20 18:14 Blood Blood Culture - Preliminary Streptococcus Species Resulted 03/15/20 18:14 Blood Blood Culture - Preliminary Gram Positive Cocci Resulted Laboratory Tests Test 03/18/20 05:10 White Blood Count 9.2 K/UL (4.8-10.8) Red Blood Count 4.12 M/UL (4.20-5.40) L Hemoglobin 9.7 G/DL (12.0-16.0) L Hematocrit 31.8 % (37.0-47.0) L Mean Corpuscular Volume 77 FL (80-99) L Mean Corpuscular Hemoglobin 23.5 PG (27.0-31.0) L Mean Corpuscular Hemoglobin Concent 30.4 G/DL (32.0-36.0) L Red Cell Distribution Width 17.5 % (11.6-14.8) H Platelet Count 238 K/UL (150-450) Mean Platelet Volume 5.7 FL (6.5-10.1) L Neutrophils (%) (Auto) 49.5 % (45.0-75.0) Lymphocytes (%) (Auto) 27.3 % (20.0-45.0) Monocytes (%) (Auto) 15.7 % (1.0-10.0) H Eosinophils (%) (Auto) 6.1 % (0.0-3.0) H Basophils (%) (Auto) 1.3 % (0.0-2.0) Sodium Level 140 MMOL/L (136-145) Potassium Level 4.3 MMOL/L (3.5-5.1) Chloride Level 97 MMOL/L (98-107) L Carbon Dioxide Level 33 MMOL/L (21-32) H Anion Gap 10 mmol/L (5-15) Blood Urea Nitrogen 57 mg/dL (7-18) H Creatinine 9.0 MG/DL (0.55-1.30) H Estimat Glomerular Filtration Rate 5.5 mL/min (>60) Glucose Level 101 MG/DL (74-106) Calcium Level 9.7 MG/DL (8.5-10.1) Phosphorus Level 5.5 MG/DL (2.5-4.9) H Magnesium Level 3.2 MG/DL (1.8-2.4) H Total Bilirubin 0.9 MG/DL (0.2-1.0) Direct Bilirubin 0.3 MG/DL (0.0-0.3) Aspartate Amino Transf (AST/SGOT) 37 U/L (15-37) Alanine Aminotransferase (ALT/SGPT) 28 U/L (12-78) Alkaline Phosphatase 221 U/L (46-116) H Total Protein 8.1 G/DL (6.4-8.2) Albumin 3.7 G/DL (3.4-5.0) Current Medications Medications (Trade) Dose Ordered Sig/Josi Route PRN Reason Start Time Stop Time Status Last Admin Dose Admin Acetaminophen (Tylenol) 650 mg Q4H PRN GT fever 03/10/20 23:45 04/07/20 23:39 Albuterol/ Ipratropium (Combivent Respimat) 1 puff Q4H PRN INH Shortness of Breath 03/10/20 23:45 04/07/20 23:40 Amlodipine Besylate (Norvasc) 2.5 mg DAILY NG 03/12/20 09:00 04/11/20 08:59 03/17/20 09:42 Atorvastatin Calcium (Lipitor) 10 mg BEDTIME NG 03/11/20 21:00 05/25/20 20:59 03/17/20 21:03 Cefepime HCl 500 mg/Dextrose 55 ml @ 110 mls/hr Q24H IVPB 03/15/20 21:00 03/22/20 20:59 03/17/20 21:04 Chlorhexidine Gluconate (Jenny-Hex 2%) 1 applic DAILY@1999 TOPIC 03/14/20 20:00 06/12/20 19:59 03/17/20 21:02 Chlorhexidine Gluconate (Jenny-Hex 2%) 1 applic DAILY@1999 TOPIC 03/18/20 20:00 06/16/20 19:59 Daptomycin 800 mg/ Sodium Chloride 55 ml @ 100 mls/hr Q48H IV 03/13/20 21:00 03/20/20 20:59 03/17/20 21:04 Epoetin Jose De Jesus (Epoetin Jose De Jesus(ESRD on dialysis)) 8,000 unit SUN-SUN-SUN SUBQ 03/15/20 21:00 06/13/20 20:59 03/17/20 21:06 Heparin Sodium (Porcine) (Heparin 5000 units/ml) 5,000 units EVERY 12 HOURS SUBQ 03/11/20 09:00 04/10/20 08:59 03/17/20 21:40 Heparin Sodium (Porcine) (Heparin) 2,000 unit ONCE PRN INJ radiology 03/18/20 06:00 03/18/20 23:59 Heparin Sodium/ Sodium Chloride (Heparin 1000 units/500ml Premix) 1,000 unit ONCE PRN IV picc line placement 03/18/20 12:30 03/20/20 12:29 Insulin Aspart (NovoLOG) Q6HR SUBQ 03/11/20 00:00 05/20/20 12:29 03/17/20 12:00 Lidocaine HCl (Xylocaine 1% 30ml) 30 ml ONCE PRN INJ picc line placement 03/18/20 12:30 03/20/20 12:29 Morphine Sulfate (Morphine Sulfate) 4 mg Q6H PRN IVP For Pain 03/15/20 12:15 03/22/20 12:14 Ondansetron HCl (Zofran) 4 mg Q6H PRN IVP Nausea & Vomiting 03/11/20 00:30 03/26/20 06:29 Pantoprazole (Protonix) 40 mg EVERY 12 HOURS ORAL 03/17/20 21:00 04/16/20 20:59 03/18/20 10:21 Pyridoxine HCl (Vitamin B6) 50 mg DAILY ORAL 03/18/20 09:00 04/17/20 08:59 03/18/20 10:21 Sevelamer Carbonate (Renvela) 800 mg Q6HR NG 03/11/20 00:00 03/18/20 13:00 03/18/20 05:16 Sevelamer Carbonate (Renvela) 1,600 mg TID NG 03/18/20 13:00 05/25/20 11:59 Thiamine HCl (Vitamin B1) 100 mg DAILY ORAL 03/18/20 09:00 04/17/20 08:59 03/18/20 10:21 Susi Vanegas M.D. Mar 18, 2020 12:44
--- NOTE | 2020-03-18 14:37 | NUR ---
*-*DISCHARGE PLANNING*-* PATIENT HAS BEEN REFERRED TO: [facility] P: [phone] OR P: [phone] F: OR F: F: [phone] ~~~~~~~~~~~~~~~~~~CLINICALS FAXED~~~~~~~~~~~~~~ Addendum: 03/19/20 at 1309 by COBY MARTINEZ DISCHARGE PLANNING F/U CALL MADE TO [facility] IN RE TO REFERRAL FOR AMBER. Sanjeev/Jordon IZQUIERDO WHO INFORMED THAT PATIENT IS DENIED AT THIS TIME [facility] IS CURRENTLY NOT ACCEPTING PATIENTS WHO ARE COVID-19 POSITIVE.
[2020-03-18 16:00] VITALS: BP 126/58
--- NOTE | 2020-03-18 19:20 | Cardiology Progress Note ---
Assessment/Plan Assessment/Plan 1. Respiratory failure. 2. History of obesity hypoventilation syndrome. 3. History of pulmonary hypertension previously. 4. Urinary tract infection. 5. covid 19 infection confimred 6. pneumonia. 7. History of bacteremia with Staph epi recently on 02/05/2020. 8. somnolence 9. Polymicrobial bacteremia i did not examine pt personally with confirmed covid 19 now off tele sat normal off oxygen no cough no diarrhea all labs reviewed wbc norml no fever since 03/05 despite all the bacteremia !! dialysis covid neg from 03/11 new picc placed has different organism on different blood cx ? Subjective ROS Limited/Unobtainable: Yes Subjective per rn confused in restraints has ng tube and Tyler , tolerating feeding not pulling out ngt Objective Last 24 Hour Vital Signs Date Time Temp Pulse Resp B/P (MAP) Pulse Ox O2 Delivery O2 Flow Rate FiO2 03/18/20 16:00 98.0 92 20 126/58 (80) 97 03/18/20 12:00 97.0 79 20 112/58 (76) 95 03/18/20 09:00 Room Air 03/18/20 09:00 93 175/69 03/18/20 08:00 98.9 93 18 175/69 (104) 95 03/18/20 04:00 96.8 77 20 138/65 (89) 93 03/18/20 00:00 98.7 89 19 130/78 (95) 96 03/17/20 21:00 Room Air 03/17/20 20:00 95 Room Air 21 03/17/20 20:00 80 20 95 Room Air 21 03/17/20 20:00 97.3 80 19 134/82 (99) 97 Intake and Output 03/17/20 03/18/20 19:00 07:00 Intake Total 460 ml Balance 460 ml Intake Oral 350 ml IV Total 110 ml # Voids 1 Laboratory Tests Test 03/18/20 05:10 White Blood Count 9.2 K/UL (4.8-10.8) Red Blood Count 4.12 M/UL (4.20-5.40) L Hemoglobin 9.7 G/DL (12.0-16.0) L Hematocrit 31.8 % (37.0-47.0) L Mean Corpuscular Volume 77 FL (80-99) L Mean Corpuscular Hemoglobin 23.5 PG (27.0-31.0) L Mean Corpuscular Hemoglobin Concent 30.4 G/DL (32.0-36.0) L Red Cell Distribution Width 17.5 % (11.6-14.8) H Platelet Count 238 K/UL (150-450) Mean Platelet Volume 5.7 FL (6.5-10.1) L Neutrophils (%) (Auto) 49.5 % (45.0-75.0) Lymphocytes (%) (Auto) 27.3 % (20.0-45.0) Monocytes (%) (Auto) 15.7 % (1.0-10.0) H Eosinophils (%) (Auto) 6.1 % (0.0-3.0) H Basophils (%) (Auto) 1.3 % (0.0-2.0) Sodium Level 140 MMOL/L (136-145) Potassium Level 4.3 MMOL/L (3.5-5.1) Chloride Level 97 MMOL/L (98-107) L Carbon Dioxide Level 33 MMOL/L (21-32) H Anion Gap 10 mmol/L (5-15) Blood Urea Nitrogen 57 mg/dL (7-18) H Creatinine 9.0 MG/DL (0.55-1.30) H Estimat Glomerular Filtration Rate 5.5 mL/min (>60) Glucose Level 101 MG/DL (74-106) Calcium Level 9.7 MG/DL (8.5-10.1) Phosphorus Level 5.5 MG/DL (2.5-4.9) H Magnesium Level 3.2 MG/DL (1.8-2.4) H Total Bilirubin 0.9 MG/DL (0.2-1.0) Direct Bilirubin 0.3 MG/DL (0.0-0.3) Aspartate Amino Transf (AST/SGOT) 37 U/L (15-37) Alanine Aminotransferase (ALT/SGPT) 28 U/L (12-78) Alkaline Phosphatase 221 U/L (46-116) H Total Protein 8.1 G/DL (6.4-8.2) Albumin 3.7 G/DL (3.4-5.0) Microbiology Date/Time Source Procedure Growth Status 03/16/20 17:25 Blood Blood Culture - Preliminary Resulted 03/16/20 17:25 Blood Blood Culture - Preliminary Streptococcus Species Resulted Wilfredo Reyna MD Mar 18, 2020 19:20
--- NOTE | 2020-03-18 19:25 | NUR ---
NURSE NOTES: Report received from Matt SLOAN. Patient is awake and alert x 1. Patient is receiving dialysis at this time. Patient does not have IV access at this time. Patient pulled out PICC line today. Endorsed to Sj SLOAN from Matt SLOAN that Doctor Chidi is aware of no IV access and no PICC line. New order for PICC line placed. Consent still needs to be obtained. Patient noted to be on bilateral soft wrist restraints. No edema noted, patient noted to have circulation and movement in extremities. No order renewal needed at this time. Patient on droplet and contact precautions due to testing positive for covid 19. Bed locked, in lowest position, and alarmed. Will continue to follow plan of care.
--- NOTE | 2020-03-18 19:47 | NUR ---
HAND-OFF: Report given to Sj Ruiz RN. Patient is in supine position, sleeping, receiving dialysis, soft wrist restraints in place, on room air, saturating at 95 percent, no c/o pain, no SOB, bed in lowest position, call light within reach, no IV access, d/c'd per patient. Received order for placement of PICC line from Dr. Meghana Murillo, IR unable to place at this time. Jimmy Infante RN, Charge Nurse aware.
[2020-03-18 20:00] VITALS: BP 98/56
[2020-03-18] MEDS: Dyna-Hex 2% Top Sol 2oz TOPIC SCH ×2 (20:00)
[2020-03-18] MEDS: Cefepime HCl 500 MG in D5W 55 ML IVPB SCH (20:49)
--- NOTE | 2020-03-18 23:14 | NUR ---
NURSE NOTES: Patient has no IV access, IV antibiotic given during dialysis.
[2020-03-19] VITALS (7 sets, daily range): BP systolic 83–132; BP diastolic 41–65
[2020-03-19] MEDS: NovoLOG Insulin Flexpen SUBQ SCH ×4 (06:00→18:16)
--- NOTE | 2020-03-19 06:29 | NUR ---
NURSE NOTES: Sj SLOAN unable to draw labs. costume technician unable to draw labs, and patient being uncooperative. Will endorse to day shift. Possible for labs to be drawn during PICC line placement planned for today.
--- NOTE | 2020-03-19 07:27 | NUR ---
HAND-OFF: Report given to Guru SLOAN .
--- NOTE | 2020-03-19 07:30 | NUR ---
NURSE NOTES: Received patient in bed. Awake, Alert x2. On room air, respirations unlabored. No IV site in place at this time. Patient denies pain at this time. Bilateral soft-wrist restraints in place, hands are warm and normal color for ethnicity. Bed rails up x2, bed at the lowest position, bed locked, bed alarm on, call light within reach.
[2020-03-19] MEDS: Heparin 5000 units/ml inj SUBQ SCH ×2 (09:00→23:01)
--- NOTE | 2020-03-19 09:31 | NUR ---
RD ASSESSMENT & RECOMMENDATIONS SEE CARE ACTIVITY FOR COMPLETE ASSESSMENT DAILY ESTIMATED NEEDS: Needs based on obesity, pulmonary, HD, wound 78kg abw 20-25 kcals/kg 7083-5165 total kcals 1.25-1.8 g protein/kg 98-140 g total protein per MD, pt on HD mL/kg . total fluid mLs NUTRITION DIAGNOSIS: * Swallowing difficulty R/T respiratory status as evidenced by pt orally intubated, now s/p extubation, s/p pulling out NGT, now on pureed moist texture w/ NTL. * Altered nutrition related lab values R/T ESRD as evidenced by elev creat (9.0), elev BNP (>90310->10473), elev phos (6.0-> wnl->5.5). CURRENT DIET:Renal, pureed moist w/ NTL + Nepro BID PO DIET RECOMMENDATIONS: RENAL + CCHO MED/ texture per HAND STONECUTTER ADDITIONAL RECOMMENDATIONS: 1) Calibrated bedscale wt for accurate CBW- daily wts for ESRD dx : wts in the 210's vs 240's a few week ago 2) Monitor BGs closely, for hypoglycemia h/o frequent hypoglycemia during prev admissions 3) DC Nepro w/ continued good PO intake to prevent excessive kcal intake given obesity 4) Monitor lytes and renal fxn (phos elev) Addendum: 03/19/20 at [address] * Add Nephrovite x 1 for skin integrity
[2020-03-19] MEDS: Pyridoxine 50mg tab ORAL SCH (09:55)
[2020-03-19] MEDS: Renvela 800mg Pkt NG SCH ×3 (09:55→17:56)
[2020-03-19] MEDS: Thiamine 100mg tab ORAL SCH (09:55)
--- NOTE | 2020-03-19 10:22 | NUR ---
DISCHARGE PLANNING PATIENT HAS BEEN REFERRED BACK TO [facility] P: [phone] F: [phone]
--- NOTE | 2020-03-19 11:11 | Nephrology Progress Note ---
Assessment/Plan Problem List: (1) Acute respiratory failure (2) ESRD (end stage renal disease) on dialysis (3) UTI (urinary tract infection) (4) Patient is [employer] (5) Pacemaker (6) Diabetes (7) Obesity (BMI 30-39.9) Assessment ARDS (adult respiratory distress syndrome) Fever Sepsis UTI (urinary tract infection) Respiratory failure, intubated on ventilator Thrombocytopenia Lymphopenia End stage renal disease on dialysis. Has a right upper arm dialysis fistula as Acces . Getting dialysis Sunday. morbid obesity Anemia / Jehova's witness CAD previous stent HTN- hypertensive urgency upon arrival to [facility]. s/p AVG DM 2 bilateral eye blindness h/o CHF Pacemaker Plan NG tube is out not takes p.o., will change all IV medication to p.o. Patient extubated March 04, and remains extubated, now in MedSurg floor Patient positive for Covid 19 Per ID and pulmonary, Last dialyzed March 18 next dialysis March 20 EPO, thiamin and b6 Phos binders NGT feeding per consultants Remains full code at this time Subjective ROS Limited/Unobtainable: No Constitutional: Reports: malaise, weakness Objective Objective Last 24 Hour Vital Signs Date Time Temp Pulse Resp B/P (MAP) Pulse Ox O2 Delivery O2 Flow Rate FiO2 03/19/20 09:55 82 126/58 03/19/20 08:00 98.4 82 20 126/58 (80) 95 03/19/20 06:28 Room Air 03/19/20 04:00 97.5 80 20 105/56 (72) 99 03/19/20 01:00 97.7 87 18 98/62 (74) 94 03/19/20 00:00 97.7 87 18 83/41 (55) 94 03/18/20 21:00 Room Air 03/18/20 20:00 97.5 75 20 98/56 (70) 100 03/18/20 16:00 98.0 92 20 126/58 (80) 97 03/18/20 12:00 97.0 79 20 112/58 (76) 95 Intake and Output 03/18/20 03/19/20 19:00 07:00 Intake Total 55 ml Output Total 2000 ml Balance -1945 ml IV Total 55 ml Hemodialysis UF 2000 ml # Voids 2 # Bowel Movements 1 2 No blood work for today Height (Feet): 5 Height (Inches): 7.00 Weight (Pounds): 218 General Appearance: no apparent distress, lethargic Cardiovascular: normal rate Respiratory/Chest: decreased breath sounds Abdomen: distended Objective No change Bryan Hunter MD Mar 19, 2020 11:11
--- NOTE | 2020-03-19 12:39 | Cardiology Progress Note ---
Assessment/Plan Assessment/Plan 1. Respiratory failure. 2. History of obesity hypoventilation syndrome. 3. History of pulmonary hypertension previously. 4. Urinary tract infection. 5. covid 19 infection confimred 6. pneumonia. 7. History of bacteremia with Staph epi recently on 02/05/2020. 8. somnolence 9. Polymicrobial bacteremia i did not examine pt personally with confirmed covid 19 now off tele sat normal off oxygen no cough no diarrhea all labs reviewed wbc norml still no fever since 03/05 despite all the bacteremia !! dialysis yes covid neg from 03/11 new picc placed was removed by pt on 03/18 has different organism on different blood cx ? bp readign lwo on dialysis subsequently okd again Subjective ROS Limited/Unobtainable: Yes Subjective per rn confused in restraints has ng tube and Tyler , tolerating feeding not pulling out ngt Objective Last 24 Hour Vital Signs Date Time Temp Pulse Resp B/P (MAP) Pulse Ox O2 Delivery O2 Flow Rate FiO2 03/19/20 09:55 82 126/58 03/19/20 09:00 Room Air 03/19/20 08:00 98.4 82 20 126/58 (80) 95 03/19/20 06:28 Room Air 03/19/20 04:00 97.5 80 20 105/56 (72) 99 03/19/20 01:00 97.7 87 18 98/62 (74) 94 03/19/20 00:00 97.7 87 18 83/41 (55) 94 03/18/20 21:00 Room Air 03/18/20 20:00 97.5 75 20 98/56 (70) 100 03/18/20 16:00 98.0 92 20 126/58 (80) 97 General Appearance: no apparent distress Intake and Output 03/18/20 03/19/20 19:00 07:00 Intake Total 55 ml Output Total 2000 ml Balance -1945 ml IV Total 55 ml Hemodialysis UF 2000 ml # Voids 2 # Bowel Movements 1 2 Microbiology Date/Time Source Procedure Growth Status 03/16/20 17:25 Blood Blood Culture - Preliminary Staphylococcus Species Resulted 03/16/20 17:25 Blood Blood Culture - Preliminary Enterococcus Faecalis - Vre Staphylococcus Species Resulted Wilfredo Reyna MD Mar 19, 2020 12:39
--- NOTE | 2020-03-19 13:00 | NUR ---
NURSE NOTES: Unable to draw patient's blood for labs today. Multiple attempts done, medical director attempted, multiple RN attempted. Dr. Murillo made aware.
--- NOTE | 2020-03-19 13:33 | Pulmonology Progress Note ---
Assessment/Plan Problems: (1) COVID-19 virus infection (2) Acute respiratory failure Assessment & Plan: extubated now (3) Accelerated hypertension (4) Sepsis (5) At high risk for aspiration (6) ESRD (end stage renal disease) on dialysis (7) Diabetes (8) Patient is Baptism (9) Morbid obesity Assessment/Plan pulled out her picc line BC still positive still confused, pulled NG tube swallow study done, will need Barium swallow wbc still high improving on isolation afebrile in the last few days f/u cultures respiratory treatment Subjective ROS Limited/Unobtainable: No Constitutional: Reports: no symptoms HEENT: Repors: no symptoms Respiratory: Reports: no symptoms Allergies: Coded Allergies: NO KNOWN ALLERGIES (Unverified Allergy, Unknown, 10/15/15) All Systems: reviewed and negative except above Objective Last 24 Hour Vital Signs Date Time Temp Pulse Resp B/P (MAP) Pulse Ox O2 Delivery O2 Flow Rate FiO2 03/19/20 12:00 98.6 79 20 132/62 (85) 95 03/19/20 09:55 82 126/58 03/19/20 09:00 Room Air 03/19/20 08:00 98.4 82 20 126/58 (80) 95 03/19/20 06:28 Room Air 03/19/20 04:00 97.5 80 20 105/56 (72) 99 03/19/20 01:00 97.7 87 18 98/62 (74) 94 03/19/20 00:00 97.7 87 18 83/41 (55) 94 03/18/20 21:00 Room Air 03/18/20 20:00 97.5 75 20 98/56 (70) 100 03/18/20 16:00 98.0 92 20 126/58 (80) 97 Intake and Output 03/18/20 03/19/20 19:00 07:00 Intake Total 55 ml Output Total 2000 ml Balance -1945 ml IV Total 55 ml Hemodialysis UF 2000 ml # Voids 2 # Bowel Movements 1 2 Objective swallow study done, results reviewed General Appearance: no acute distress, other - morbidly obese AA female HEENT: normocephalic, atraumatic Respiratory/Chest: decreased breath sounds Breasts: no masses Cardiovascular: normal rate, other - LUE PICC intact Abdomen: normal bowel sounds, soft, non tender - obese Genitourinary: normal external genitalia Extremities: other - trace edema BLE, RUE AV shunt + bruit/thrill Skin: no rash Neurologic/Psychiatric: honey liquefier II-XII grossly normal, alert, responsive Lymphatic: no neck adenopathy Musculoskeletal: atrophy - BLE Microbiology Date/Time Source Procedure Growth Status 03/16/20 17:25 Blood Blood Culture - Preliminary Staphylococcus Species Resulted 03/16/20 17:25 Blood Blood Culture - Preliminary Enterococcus Faecalis - Vre Staphylococcus Species Resulted Current Medications Medications (Trade) Dose Ordered Sig/Josi Route PRN Reason Start Time Stop Time Status Last Admin Dose Admin Acetaminophen (Tylenol) 650 mg Q4H PRN GT fever 03/10/20 23:45 04/07/20 23:39 Albuterol/ Ipratropium (Combivent Respimat) 1 puff Q4H PRN INH Shortness of Breath 03/10/20 23:45 04/07/20 23:40 Amlodipine Besylate (Norvasc) 2.5 mg DAILY NG 03/12/20 09:00 04/11/20 08:59 03/19/20 09:55 Atorvastatin Calcium (Lipitor) 10 mg BEDTIME NG 03/11/20 21:00 05/25/20 20:59 03/18/20 20:54 Cefepime HCl 500 mg/Dextrose 55 ml @ 110 mls/hr Q24H IVPB 03/15/20 21:00 03/22/20 20:59 03/18/20 20:49 Chlorhexidine Gluconate (Jenny-Hex 2%) 1 applic DAILY@1999 TOPIC 03/14/20 20:00 06/12/20 19:59 03/17/20 21:02 Chlorhexidine Gluconate (Jenny-Hex 2%) 1 applic DAILY@1999 TOPIC 03/18/20 20:00 06/16/20 19:59 Daptomycin 800 mg/ Sodium Chloride 55 ml @ 100 mls/hr Q48H IV 03/13/20 21:00 03/20/20 20:59 03/17/20 21:04 Epoetin Jose De Jesus (Epoetin Jose De Jesus(ESRD on dialysis)) 8,000 unit MON-WED-SUN SUBQ 03/15/20 21:00 06/13/20 20:59 03/17/20 21:06 Heparin Sodium (Porcine) (Heparin 5000 units/ml) 5,000 units EVERY 12 HOURS SUBQ 03/11/20 09:00 04/10/20 08:59 03/18/20 20:59 Heparin Sodium/ Sodium Chloride (Heparin 1000 units/500ml Premix) 1,000 unit ONCE PRN IV picc line placement 03/18/20 12:30 03/20/20 12:29 Insulin Aspart (NovoLOG) Q6HR SUBQ 03/11/20 00:00 05/20/20 12:29 03/18/20 13:46 Lidocaine HCl (Xylocaine 1% 30ml) 30 ml ONCE PRN INJ picc line placement 03/18/20 12:30 03/20/20 12:29 Linezolid (Zyvox) 600 mg EVERY 12 HOURS ORAL 03/18/20 21:00 03/23/20 20:59 03/19/20 09:55 Morphine Sulfate (Morphine Sulfate) 4 mg Q6H PRN IVP For Pain 03/15/20 12:15 03/22/20 12:14 Ondansetron HCl (Zofran) 4 mg Q6H PRN IVP Nausea & Vomiting 03/11/20 00:30 03/26/20 06:29 Pantoprazole (Protonix) 40 mg EVERY 12 HOURS ORAL 03/17/20 21:00 04/16/20 20:59 03/19/20 09:55 Pyridoxine HCl (Vitamin B6) 50 mg DAILY ORAL 03/18/20 09:00 04/17/20 08:59 03/19/20 09:55 Sevelamer Carbonate (Renvela) 1,600 mg TID NG 03/18/20 13:00 05/25/20 11:59 03/19/20 13:25 Thiamine HCl (Vitamin B1) 100 mg DAILY ORAL 03/18/20 09:00 04/17/20 08:59 03/19/20 09:55 Meghana Murillo MD Mar 19, 2020 13:33
--- NOTE | 2020-03-19 13:33 | General Progress Note ---
Assessment/Plan Status: unchanged Assessment/Plan: 1. Diabetes. 2. End-stage renal disease, on hemodialysis. 3. Chronic anemia. 4. Obesity. 5. Gastritis. 6. Kidney stones. 7. Abdominal hernia. 8. Hiatal hernia. 9. Cardiomegaly. 10. Hypercholesterolemia. 11. Hypertension. 12. Bilateral eye blindness. 13. Coronary artery disease and cardiac stent placement. 14. History of EtOH and cocaine abuse in the past. 15. Dysphagia abd CT reviewed repeat labs COVID positive swallow eval appreciated on diet \ fu cardiology and Id recs Subjective ROS Limited/Unobtainable: No Allergies: Coded Allergies: NO KNOWN ALLERGIES (Unverified Allergy, Unknown, 10/15/15) Objective Last 24 Hour Vital Signs Date Time Temp Pulse Resp B/P (MAP) Pulse Ox O2 Delivery O2 Flow Rate FiO2 03/19/20 12:00 98.6 79 20 132/62 (85) 95 03/19/20 09:55 82 126/58 03/19/20 09:00 Room Air 03/19/20 08:00 98.4 82 20 126/58 (80) 95 03/19/20 06:28 Room Air 03/19/20 04:00 97.5 80 20 105/56 (72) 99 03/19/20 01:00 97.7 87 18 98/62 (74) 94 03/19/20 00:00 97.7 87 18 83/41 (55) 94 03/18/20 21:00 Room Air 03/18/20 20:00 97.5 75 20 98/56 (70) 100 03/18/20 16:00 98.0 92 20 126/58 (80) 97 Intake and Output 03/18/20 03/19/20 19:00 07:00 Intake Total 55 ml Output Total 2000 ml Balance -1945 ml IV Total 55 ml Hemodialysis UF 2000 ml # Voids 2 # Bowel Movements 1 2 Height (Feet): 5 Height (Inches): 7.00 Weight (Pounds): 218 General Appearance: no apparent distress EENT: PERRL/EOMI Neck: supple Cardiovascular: normal rate Respiratory/Chest: decreased breath sounds Abdomen: normal bowel sounds, non tender, soft Extremities: non-tender Jamison Garcia MD Mar 19, 2020 13:33
--- NOTE | 2020-03-19 13:40 | NUR ---
CHARGE NURSE NOTE: Pi is scheduled for HD for tomorrow. Spoke with BECCA Holt agency notified.
--- NOTE | 2020-03-19 16:41 | NUR ---
CASE MANAGEMENT:REVIEW SI;SEPSIS. ACUTE RESPIRATORY FAILURE. ESRD ON HD. COVID-19 INFECTION (03/13/20 DETECTED) 98.8 85 20 132/62 95% ON RA PHOS 5.5 MG 3.2 ALK PHOS 221 IS;ZYVOX NG Q12 HRS PROTONIX NG BID CEFEPIME IV Q24 HRS DAPTOMYCIN IV Q48 HRS NORVASC NG QD HEPARIN SUBQ Q12 HRS MED SURG STATUS DCP;PATIENT IS FROM [facility]
--- NOTE | 2020-03-19 19:21 | NUR ---
HAND-OFF: Report given to Mel Crain RN.
--- NOTE | 2020-03-19 19:30 | NUR ---
Verbal report received from Guru SLOAN. Pt awake and restless in bed with bilateral wrist restraints on. Picc line presently being replaced.
[2020-03-19] MEDS: Dyna-Hex 2% Top Sol 2oz TOPIC SCH ×2 (20:00→22:50)
--- NOTE | 2020-03-19 20:04 | NUR ---
RADIOLOGY NOTE: LEFT UPPER MIDLINE PLACED.
--- NOTE | 2020-03-19 20:42 | Diagnostic Imaging Report ---
Indications: Needs long-term IV access Technique: Procedure performed at bedside. Procedural timeout performed. Ultrasound confirms patent compressible left great vein. Total sterile technique, including sterile probe cover and sterile gel, sterile gloves, hand hygiene, hat, mask,, sterile gown, large sterile drape, and preparation with 2% chlorhexidine utilized. Local anesthesia with 1% lidocaine. Under real-time ultrasound guidance, puncture trachea vein using 21-gauge needle, passage 0.018 guidewire, exchange for 4 Wallisian peel-away sheath. 4 Wallisian Bard dual-lumen power PICC cut to 45 cm. Although the wire passed without difficulty, the catheter would not pass beyond about 3 cm, probably due to the presence of pacemaker wires within the left brachycephalic vein. Therefore the catheter was removed and cut to 25 cm It was inserted through the peel-away sheath. Peel-away sheath and guidewire removed. Catheter fixed to the skin. Both catheter ports aspirated and flushed. Patient tolerated procedure well, without immediate complication. Followup chest x-ray obtained, documents catheter tip position at the left axillary Impression: Successful bedside placement of left PICC under sonographic guidance, as described above, suitable for use only as a midline.
--- NOTE | 2020-03-19 20:42 | Brief Operative Note ---
Immediate Post Operative Note Operative Note Pre-op Diagnosis: needs long-term IV access Procedure: PICC Post-op Diagnosis: same as pre-op Surgeon: Wendy Wright Anesthesia: local Specimen: none Complications: none Fluids: none Implant(s) used?: No Bhanu Wright MD Mar 19, 2020 20:42
[2020-03-19] MEDS: Epoetin Alfa-EPBX(ESRD on dialysis)4000 units/ml vial SUBQ SCH (21:00)
[2020-03-19] MEDS: DAPTOMYCIN IV SCH (22:18)
[2020-03-19] MEDS: NS IV SCH (22:18)
[2020-03-19] MEDS: Cefepime HCl 500 MG in D5W 55 ML IVPB SCH (22:23)
[2020-03-20] VITALS: BP 105/50
[2020-03-20] MEDS: NovoLOG Insulin Flexpen SUBQ SCH ×4 (06:00→18:00)
[2020-03-20 06:39] LABS: BASOPHILS % (AUTO) 1.2 % (0.0-2.0); EOSINOPHILS % (AUTO) 4.2 % (0.0-3.0); HEMATOCRIT 33.2 % (37.0-47.0); HEMOGLOBIN 10.2 G/DL (12.0-16.0); LYMPHOCYTES % (AUTO) 22.2 % (20.0-45.0); MEAN CORPUSCULAR VOLUME 77 FL (80-99); MONOCYTES % (AUTO) 12.8 % (1.0-10.0); NEUTROPHILS % (AUTO) 59.6 % (45.0-75.0); PLATELET COUNT 251 K/UL (150-450); RED BLOOD COUNT 4.28 M/UL (4.20-5.40); RED CELL DISTRIBUTION WIDTH 17.6 % (11.6-14.8); WHITE BLOOD COUNT 12.2 K/UL (4.8-10.8)
--- NOTE | 2020-03-20 07:22 | Pulmonology Progress Note ---
Assessment/Plan Assessment/Plan ASSESSMENT COVID 19 pneumonia -confirmed Acute respiratory failure requiring intubation, secondary to COVID 19 infection , status post self extubation Persistent bacteremia with recurrent fevers -presumed ? SBE ESRD, on HD Diabetes mellitus Hypertension Pacemaker Jehovah witness Obesity hypoventilation syndrome Anemia PLAN of CARE MS floor s/p self extubated ABG stable, pulse ox OK O2 HHN PRN fup CXR noted, CT chest noted IV Vanco for 6-week for possible SBE as per ID recs ID also recommends WBC scan to evaluate for possible AVF infection BCX 03/09 + VFRE, CoNS BCX 03/10 + VFRE, CoNS due to persistent + BCX and failure of vanco, changed to Dapto and Linezolid added for synergy as per ID recs , BCX 03/11 NGTD bacteremia likely 2 to endovascular source ( AV shunt infection or endocarditis ) still in isolation as per ID, last ROSA CoVID-2 by PCR + Echo from [facility] w/out evidence of vegetation ( per cardio patient at high risk to have CLAY ) UCX with Candice - likely colonizer -per ID s/p Plaquenil and azithromycin for 5 days influenza screen NGT asp precautions HD as per nephro with close monitoring of volumes and renal parameters correct lytes as needed DVT, GI prophylaxis case discussed and evaluated by supervising physician Subjective ROS Limited/Unobtainable: No Constitutional: Reports: no symptoms HEENT: Repors: no symptoms Respiratory: Reports: no symptoms Allergies: Coded Allergies: NO KNOWN ALLERGIES (Unverified Allergy, Unknown, 10/15/15) All Systems: reviewed and negative except above Subjective no signs of resp distress remains in isolation, mild leukocytosis this am last ROSA CoV PCR 03/13 detected Objective Last 24 Hour Vital Signs Date Time Temp Pulse Resp B/P (MAP) Pulse Ox O2 Delivery O2 Flow Rate FiO2 03/20/20 00:00 98.1 83 20 105/50 (68) 03/19/20 21:00 Room Air 03/19/20 20:00 98.2 93 20 125/49 (74) 94 03/19/20 16:00 98.8 85 20 128/65 (86) 95 03/19/20 12:00 98.6 79 20 132/62 (85) 95 03/19/20 09:55 82 126/58 03/19/20 09:00 Room Air 03/19/20 08:00 98.4 82 20 126/58 (80) 95 Intake and Output 03/19/20 03/20/20 19:00 07:00 Intake Total 240 ml Balance 240 ml Intake Oral 240 ml Objective General Appearance: no acute distress, morbidly obese AA female HEENT: normocephalic, atraumatic Respiratory/Chest: decreased breath sounds Cardiovascular: normal rate, PICC intact Abdomen: normal bowel sounds, soft, non tender , obese Extremities: trace edema BLE, RUE AV shunt + bruit/thrill Neurologic/Psychiatric: abnormal gait, alert, responsive Musculoskeletal: atrophy - BLE General Appearance: other - morbidly obese AA female Cardiovascular: other - LUE PICC intact Extremities: other - trace edema BLE, RUE AV shunt + bruit/thrill Laboratory Tests 03/20/20 06:14: White Blood Count 12.2H, Red Blood Count 4.28, Hemoglobin 10.2L, Hematocrit 33.2L, Mean Corpuscular Volume 77L, Mean Corpuscular Hemoglobin 23.9L, Mean Corpuscular Hemoglobin Concent 30.9L, Red Cell Distribution Width 17.6H, Platelet Count 251, Mean Platelet Volume 6.3L, Neutrophils (%) (Auto) 59.6, Lymphocytes (%) (Auto) 22.2, Monocytes (%) (Auto) 12.8H, Eosinophils (%) (Auto) 4.2H, Basophils (%) (Auto) 1.2, Sodium Level [Pending], Potassium Level [Pending ], Chloride Level [Pending], Carbon Dioxide Level [Pending], Blood Urea Nitrogen [Pending], Creatinine [Pending], Estimat Glomerular Filtration Rate [ Pending], Glucose Level [Pending], Calcium Level [Pending], Total Bilirubin [ Pending], Aspartate Amino Transf (AST/SGOT) [Pending], Alanine Aminotransferase (ALT/SGPT) [Pending], Alkaline Phosphatase [Pending], Total Protein [Pending], Albumin [Pending], Globulin [Pending] Current Medications Medications (Trade) Dose Ordered Sig/Josi Route PRN Reason Start Time Stop Time Status Last Admin Dose Admin Acetaminophen (Tylenol) 650 mg Q4H PRN GT fever 03/10/20 23:45 04/07/20 23:39 Albuterol/ Ipratropium (Combivent Respimat) 1 puff Q4H PRN INH Shortness of Breath 03/10/20 23:45 04/07/20 23:40 Amlodipine Besylate (Norvasc) 2.5 mg DAILY NG 03/12/20 09:00 04/11/20 08:59 03/19/20 09:55 Atorvastatin Calcium (Lipitor) 10 mg BEDTIME NG 03/11/20 21:00 05/25/20 20:59 03/19/20 22:25 Cefepime HCl 500 mg/Dextrose 55 ml @ 110 mls/hr Q24H IVPB 03/15/20 21:00 03/22/20 20:59 03/19/20 22:23 Chlorhexidine Gluconate (Jenny-Hex 2%) 1 applic DAILY@1999 TOPIC 03/14/20 20:00 06/12/20 19:59 03/19/20 22:50 Chlorhexidine Gluconate (Jenny-Hex 2%) 1 applic DAILY@1999 TOPIC 03/18/20 20:00 06/16/20 19:59 03/19/20 20:00 Daptomycin 800 mg/ Sodium Chloride 55 ml @ 100 mls/hr Q48H IV 03/13/20 21:00 03/20/20 20:59 03/19/20 22:18 Epoetin Jose De Jesus (Epoetin Jose De Jesus(ESRD on dialysis)) 8,000 unit SUN-SUN-SUN SUBQ 03/15/20 21:00 06/13/20 20:59 03/19/20 21:00 Heparin Sodium (Porcine) (Heparin 5000 units/ml) 5,000 units EVERY 12 HOURS SUBQ 03/11/20 09:00 04/10/20 08:59 03/19/20 23:01 Heparin Sodium/ Sodium Chloride (Heparin 1000 units/500ml Premix) 1,000 unit ONCE PRN IV picc line placement 03/18/20 12:30 03/20/20 12:29 Insulin Aspart (NovoLOG) Q6HR SUBQ 03/11/20 00:00 05/20/20 12:29 03/19/20 18:16 Lidocaine HCl (Xylocaine 1% 30ml) 30 ml ONCE PRN INJ picc line placement 03/18/20 12:30 03/20/20 12:29 Linezolid (Zyvox) 600 mg EVERY 12 HOURS ORAL 03/18/20 21:00 03/23/20 20:59 03/19/20 22:23 Morphine Sulfate (Morphine Sulfate) 4 mg Q6H PRN IVP For Pain 03/15/20 12:15 03/22/20 12:14 Ondansetron HCl (Zofran) 4 mg Q6H PRN IVP Nausea & Vomiting 03/11/20 00:30 03/26/20 06:29 Pantoprazole (Protonix) 40 mg EVERY 12 HOURS ORAL 03/17/20 21:00 04/16/20 20:59 03/19/20 22:24 Pyridoxine HCl (Vitamin B6) 50 mg DAILY ORAL 03/18/20 09:00 04/17/20 08:59 03/19/20 09:55 Sevelamer Carbonate (Renvela) 1,600 mg TID NG 03/18/20 13:00 05/25/20 11:59 03/19/20 17:56 Thiamine HCl (Vitamin B1) 100 mg DAILY ORAL 03/18/20 09:00 04/17/20 08:59 03/19/20 09:55 Chastity Velasco [employer] Mar 20, 2020 07:22
[2020-03-20 07:38] LABS: ALANINE AMINOTRANSFERASE 32 U/L (12-78); ALBUMIN 3.8 G/DL (3.4-5.0); ALBUMIN/GLOBULIN RATIO 0.8 (1.0-2.7); ALKALINE PHOSPHATASE 243 U/L (46-116); ANION GAP 14 mmol/L (5-15); ASPARTATE AMINO TRANSFERASE 36 U/L (15-37); BLOOD UREA NITROGEN 56 mg/dL (7-18); CALCIUM 9.4 MG/DL (8.5-10.1); CARBON DIOXIDE 30 MMOL/L (21-32); CHLORIDE 99 MMOL/L (98-107); CREATININE 9.8 MG/DL (0.55-1.30); POTASSIUM 4.8 MMOL/L (3.5-5.1); SODIUM 143 MMOL/L (136-145)
--- NOTE | 2020-03-20 07:40 | NUR ---
VERBAL REPORT TO SANDEEP SLOAN Addendum: 03/20/20 at 0920 by HAILEE TENORIO RN RN CORRECTION: VERBAL REPORT TO MAURY SANTOS
[2020-03-20 08:00] VITALS: BP 110/54
--- NOTE | 2020-03-20 08:00 | NUR ---
NURSE NOTES: Report received from Mel RN. Patient seen on rounds, AxOx1-2, not in distress, no outward sx of pain. Noted PICC on left upper arm, patent and intact. Patient has bilateral soft wrist restraints, good circulation noted, palpable pulses. Patient is anuric due to dx of ESRD. AV fistula (+) bruit and thrill on right upper arm. Bed low and locked, siderails up x2, alarms on zone 1, will continue to monitor.
[2020-03-20] MEDS: Heparin 5000 units/ml inj SUBQ SCH ×2 (09:00→20:36)
--- NOTE | 2020-03-20 09:07 | General Progress Note ---
Assessment/Plan Problem List: (1) Obesity (BMI 30-39.9) ICD Codes: E66.9 - Obesity, unspecified SNOMED: 264129126, 412421648 (2) COVID-19 virus infection ICD Codes: U07.1 - COVID-19 SNOMED: 935388195 (3) Acute respiratory failure ICD Codes: J96.00 - Acute respiratory failure, unspecified whether with hypoxia or hypercapnia SNOMED: 66374881 (4) Blindness of both eyes ICD Codes: H54.0 - Blindness SNOMED: 962108903 (5) ESRD (end stage renal disease) on dialysis ICD Codes: N18.6 - End stage renal disease; Z99.2 - Dependence on renal dialysis SNOMED: 818116096 (6) Anemia ICD Codes: D64.9 - Anemia, unspecified SNOMED: 431050751 (7) Diabetes ICD Codes: E11.9 - Type 2 diabetes mellitus without complications SNOMED: 45091224 (8) AMS (altered mental status) ICD Codes: R41.82 - Altered mental status, unspecified SNOMED: 528822436 Status: unchanged Assessment/Plan: vent abx dialysis cbc bmp am ltach eval Subjective Constitutional: Reports: weakness Allergies: Coded Allergies: NO KNOWN ALLERGIES (Unverified Allergy, Unknown, 10/15/15) All Systems: reviewed and negative except above Subjective lethargic sleepy Objective Last 24 Hour Vital Signs Date Time Temp Pulse Resp B/P (MAP) Pulse Ox O2 Delivery O2 Flow Rate FiO2 03/20/20 08:00 98.0 80 20 110/54 (72) 94 03/20/20 00:00 98.1 83 20 105/50 (68) 03/19/20 21:00 Room Air 03/19/20 20:00 98.2 93 20 125/49 (74) 94 03/19/20 16:00 98.8 85 20 128/65 (86) 95 03/19/20 12:00 98.6 79 20 132/62 (85) 95 03/19/20 09:55 82 126/58 Intake and Output 03/19/20 03/20/20 19:00 07:00 Intake Total 240 ml Balance 240 ml Intake Oral 240 ml Laboratory Tests 03/20/20 06:14: White Blood Count 12.2H, Red Blood Count 4.28, Hemoglobin 10.2L, Hematocrit 33.2L, Mean Corpuscular Volume 77L, Mean Corpuscular Hemoglobin 23.9L, Mean Corpuscular Hemoglobin Concent 30.9L, Red Cell Distribution Width 17.6H, Platelet Count 251, Mean Platelet Volume 6.3L, Neutrophils (%) (Auto) 59.6, Lymphocytes (%) (Auto) 22.2, Monocytes (%) (Auto) 12.8H, Eosinophils (%) (Auto) 4.2H, Basophils (%) (Auto) 1.2, Sodium Level 143, Potassium Level 4.8, Chloride Level 99, Carbon Dioxide Level 30, Anion Gap 14, Blood Urea Nitrogen 56H, Creatinine 9.8H, Estimat Glomerular Filtration Rate 4.8, Glucose Level 154H, Calcium Level 9.4, Phosphorus Level [Pending], Magnesium Level [Pending], Total Bilirubin 1.0, Aspartate Amino Transf (AST/SGOT) 36, Alanine Aminotransferase ( ALT/SGPT) 32, Alkaline Phosphatase 243H, Total Protein 8.5H, Albumin 3.8, Globulin 4.7, Albumin/Globulin Ratio 0.8L Height (Feet): 5 Height (Inches): 7.00 Weight (Pounds): 218 General Appearance: lethargic EENT: normal ENT inspection Neck: normal alignment Cardiovascular: normal rate, regular rhythm Respiratory/Chest: no respiratory distress, no accessory muscle use Extremities: normal inspection Skin: normal pigmentation Roderick Henning DO Mar 20, 2020 09:07
--- NOTE | 2020-03-20 09:30 | Nephrology Progress Note ---
Assessment/Plan Problem List: (1) Acute respiratory failure (2) ESRD (end stage renal disease) on dialysis (3) UTI (urinary tract infection) (4) Patient is Hinduism (5) Pacemaker (6) Diabetes (7) Obesity (BMI 30-39.9) Assessment ARDS (adult respiratory distress syndrome) Fever Sepsis UTI (urinary tract infection) Respiratory failure, intubated on ventilator Thrombocytopenia Lymphopenia End stage renal disease on dialysis. Has a right upper arm dialysis fistula as Acces . Getting dialysis Sunday. morbid obesity Anemia / Jehova's witness CAD previous stent HTN- hypertensive urgency upon arrival to [facility]. s/p AVG DM 2 bilateral eye blindness h/o CHF Pacemaker Plan NG tube is out not takes p.o., will change all IV medication to p.o. Patient extubated March 04, and remains extubated, now in MedSurg floor Patient positive for Covid 19 Per ID and pulmonary, Last dialyzed March 18 next dialysis March 20 EPO, thiamin and b6 Phos binders NGT feeding per consultants Remains full code at this time Subjective ROS Limited/Unobtainable: No Constitutional: Reports: malaise, weakness Objective Objective Last 24 Hour Vital Signs Date Time Temp Pulse Resp B/P (MAP) Pulse Ox O2 Delivery O2 Flow Rate FiO2 03/20/20 08:00 98.0 80 20 110/54 (72) 94 03/20/20 00:00 98.1 83 20 105/50 (68) 03/19/20 21:00 Room Air 03/19/20 20:00 98.2 93 20 125/49 (74) 94 03/19/20 16:00 98.8 85 20 128/65 (86) 95 03/19/20 12:00 98.6 79 20 132/62 (85) 95 03/19/20 09:55 82 126/58 Intake and Output 03/19/20 03/20/20 19:00 07:00 Intake Total 240 ml Output Total 0 ml Balance 240 ml 0 ml Intake Oral 240 ml Output Urine Total 0 ml Current Medications Medications (Trade) Dose Ordered Sig/Josi Route PRN Reason Start Time Stop Time Status Last Admin Dose Admin Acetaminophen (Tylenol) 650 mg Q4H PRN GT fever 03/10/20 23:45 04/07/20 23:39 Albuterol/ Ipratropium (Combivent Respimat) 1 puff Q4H PRN INH Shortness of Breath 03/10/20 23:45 04/07/20 23:40 Amlodipine Besylate (Norvasc) 2.5 mg DAILY NG 03/12/20 09:00 04/11/20 08:59 03/19/20 09:55 Atorvastatin Calcium (Lipitor) 10 mg BEDTIME NG 03/11/20 21:00 05/25/20 20:59 03/19/20 22:25 Cefepime HCl 500 mg/Dextrose 55 ml @ 110 mls/hr Q24H IVPB 03/15/20 21:00 03/22/20 20:59 03/19/20 22:23 Chlorhexidine Gluconate (Jenny-Hex 2%) 1 applic DAILY@1999 TOPIC 03/14/20 20:00 06/12/20 19:59 03/19/20 22:50 Chlorhexidine Gluconate (Jenny-Hex 2%) 1 applic DAILY@1999 TOPIC 03/18/20 20:00 06/16/20 19:59 03/19/20 20:00 Daptomycin 800 mg/ Sodium Chloride 55 ml @ 100 mls/hr Q48H IV 03/13/20 21:00 03/20/20 20:59 03/19/20 22:18 Epoetin Jose De Jesus (Epoetin Jose De Jesus(ESRD on dialysis)) 8,000 unit SUN-SUN-SUN SUBQ 03/15/20 21:00 06/13/20 20:59 03/19/20 21:00 Heparin Sodium (Porcine) (Heparin 5000 units/ml) 5,000 units EVERY 12 HOURS SUBQ 03/11/20 09:00 04/10/20 08:59 03/19/20 23:01 Heparin Sodium/ Sodium Chloride (Heparin 1000 units/500ml Premix) 1,000 unit ONCE PRN IV picc line placement 03/18/20 12:30 03/20/20 12:29 Insulin Aspart (NovoLOG) Q6HR SUBQ 03/11/20 00:00 05/20/20 12:29 03/19/20 18:16 Lidocaine HCl (Xylocaine 1% 30ml) 30 ml ONCE PRN INJ picc line placement 03/18/20 12:30 03/20/20 12:29 Linezolid (Zyvox) 600 mg EVERY 12 HOURS ORAL 03/18/20 21:00 03/23/20 20:59 03/19/20 22:23 Morphine Sulfate (Morphine Sulfate) 4 mg Q6H PRN IVP For Pain 03/15/20 12:15 03/22/20 12:14 Ondansetron HCl (Zofran) 4 mg Q6H PRN IVP Nausea & Vomiting 03/11/20 00:30 03/26/20 06:29 Pantoprazole (Protonix) 40 mg EVERY 12 HOURS ORAL 03/17/20 21:00 04/16/20 20:59 03/19/20 22:24 Pyridoxine HCl (Vitamin B6) 50 mg DAILY ORAL 03/18/20 09:00 04/17/20 08:59 03/19/20 09:55 Sevelamer Carbonate (Renvela) 1,600 mg TID NG 03/18/20 13:00 05/25/20 11:59 03/19/20 17:56 Thiamine HCl (Vitamin B1) 100 mg DAILY ORAL 03/18/20 09:00 04/17/20 08:59 03/19/20 09:55 Laboratory Tests 03/20/20 06:14: White Blood Count 12.2H, Red Blood Count 4.28, Hemoglobin 10.2L, Hematocrit 33.2L, Mean Corpuscular Volume 77L, Mean Corpuscular Hemoglobin 23.9L, Mean Corpuscular Hemoglobin Concent 30.9L, Red Cell Distribution Width 17.6H, Platelet Count 251, Mean Platelet Volume 6.3L, Neutrophils (%) (Auto) 59.6, Lymphocytes (%) (Auto) 22.2, Monocytes (%) (Auto) 12.8H, Eosinophils (%) (Auto) 4.2H, Basophils (%) (Auto) 1.2, Sodium Level 143, Potassium Level 4.8, Chloride Level 99, Carbon Dioxide Level 30, Anion Gap 14, Blood Urea Nitrogen 56H, Creatinine 9.8H, Estimat Glomerular Filtration Rate 4.8, Glucose Level 154H, Calcium Level 9.4, Phosphorus Level 5.0H, Magnesium Level 3.1H, Total Bilirubin 1.0, Aspartate Amino Transf (AST/SGOT) 36, Alanine Aminotransferase (ALT/SGPT) 32, Alkaline Phosphatase 243H, Total Protein 8.5H, Albumin 3.8, Globulin 4.7, Albumin/Globulin Ratio 0.8L Height (Feet): 5 Height (Inches): 7.00 Weight (Pounds): 208 General Appearance: no apparent distress Cardiovascular: tachycardia Respiratory/Chest: decreased breath sounds Abdomen: distended Objective No change Bryan Hunter MD Mar 20, 2020 09:30
[2020-03-20] MEDS: Thiamine 100mg tab ORAL SCH (10:14)
[2020-03-20] MEDS: Renvela 800mg Pkt NG SCH ×3 (10:14→18:19)
[2020-03-20] MEDS: Pyridoxine 50mg tab ORAL SCH (10:14)
[2020-03-20 12:00] VITALS: BP 118/60
--- NOTE | 2020-03-20 13:29 | GI Progress Note ---
Assessment/Plan Problems: (1) Sepsis ICD Codes: A41.9 - Sepsis, unspecified organism SNOMED: 62016317 (2) COVID-19 virus infection ICD Codes: U07.1 - COVID-19 SNOMED: 334671383 (3) At high risk for aspiration ICD Codes: Z91.89 - Other specified personal risk factors, not elsewhere classified SNOMED: 139974684 Status: unchanged Status Narrative Discussed with Dr. Garcia. Assessment/Plan 1. Diabetes. 2. End-stage renal disease, on hemodialysis. 3. Chronic anemia. 4. Obesity. 5. Gastritis. 6. Kidney stones. 7. Abdominal hernia. 8. Hiatal hernia. 9. Cardiomegaly. 10. Hypercholesterolemia. 11. Hypertension. 12. Bilateral eye blindness. 13. Coronary artery disease and cardiac stent placement. 14. History of EtOH and cocaine abuse in the past. 15. Dysphagia abd CT reviewed repeat labs COVID positive swallow eval appreciated on diet fu cardiology and Id recs GI procedures only if emergent The patient was seen and examined at bedside and all new and available data was reviewed in the patients chart. I agree with the above findings, impression and plan. (Patient seen earlier today. Signature stamp does not reflect patient encounter time.). - Jamison Garcia MD Subjective Gastrointestinal/Abdominal: Reports: no symptoms Objective Last 24 Hour Vital Signs Date Time Temp Pulse Resp B/P (MAP) Pulse Ox O2 Delivery O2 Flow Rate FiO2 03/20/20 12:00 98.7 88 20 118/60 (79) 96 03/20/20 09:00 80 110/54 03/20/20 09:00 Room Air 03/20/20 08:00 98.0 80 20 110/54 (72) 94 03/20/20 00:00 98.1 83 20 105/50 (68) 03/19/20 21:00 Room Air 03/19/20 20:00 98.2 93 20 125/49 (74) 94 03/19/20 16:00 98.8 85 20 128/65 (86) 95 Intake and Output 03/19/20 03/20/20 19:00 07:00 Intake Total 240 ml Output Total 0 ml Balance 240 ml 0 ml Intake Oral 240 ml Output Urine Total 0 ml Laboratory Tests Test 03/20/20 06:14 White Blood Count 12.2 K/UL (4.8-10.8) H Red Blood Count 4.28 M/UL (4.20-5.40) Hemoglobin 10.2 G/DL (12.0-16.0) L Hematocrit 33.2 % (37.0-47.0) L Mean Corpuscular Volume 77 FL (80-99) L Mean Corpuscular Hemoglobin 23.9 PG (27.0-31.0) L Mean Corpuscular Hemoglobin Concent 30.9 G/DL (32.0-36.0) L Red Cell Distribution Width 17.6 % (11.6-14.8) H Platelet Count 251 K/UL (150-450) Mean Platelet Volume 6.3 FL (6.5-10.1) L Neutrophils (%) (Auto) 59.6 % (45.0-75.0) Lymphocytes (%) (Auto) 22.2 % (20.0-45.0) Monocytes (%) (Auto) 12.8 % (1.0-10.0) H Eosinophils (%) (Auto) 4.2 % (0.0-3.0) H Basophils (%) (Auto) 1.2 % (0.0-2.0) Sodium Level 143 MMOL/L (136-145) Potassium Level 4.8 MMOL/L (3.5-5.1) Chloride Level 99 MMOL/L (98-107) Carbon Dioxide Level 30 MMOL/L (21-32) Anion Gap 14 mmol/L (5-15) Blood Urea Nitrogen 56 mg/dL (7-18) H Creatinine 9.8 MG/DL (0.55-1.30) H Estimat Glomerular Filtration Rate 4.8 mL/min (>60) Glucose Level 154 MG/DL (74-106) H Calcium Level 9.4 MG/DL (8.5-10.1) Phosphorus Level 5.0 MG/DL (2.5-4.9) H Magnesium Level 3.1 MG/DL (1.8-2.4) H Total Bilirubin 1.0 MG/DL (0.2-1.0) Aspartate Amino Transf (AST/SGOT) 36 U/L (15-37) Alanine Aminotransferase (ALT/SGPT) 32 U/L (12-78) Alkaline Phosphatase 243 U/L (46-116) H Total Protein 8.5 G/DL (6.4-8.2) H Albumin 3.8 G/DL (3.4-5.0) Globulin 4.7 g/dL Albumin/Globulin Ratio 0.8 (1.0-2.7) L Height (Feet): 5 Height (Inches): 7.00 Weight (Pounds): 208 General Appearance: WD/WN, no apparent distress, alert Cardiovascular: normal rate Respiratory/Chest: normal breath sounds, no respiratory distress Abdominal Exam: normal bowel sounds, non tender, soft Extremities: normal range of motion, non-tender Jaime Martin [employer] Mar 20, 2020 13:29
--- NOTE | 2020-03-20 15:50 | Infectious Diseases Prog Note ---
Assessment/Plan Assessment/Plan The patient is a 64-year-old female with Proteus bacteremia Persistent/recurrent S.epi and VRE bactereima (despite 6 weeks of treatment)- highly suspicious for endovascular source (ie AVF infection, endocarditis) 03/09 Bcx 02/27 VRE, S. epi, 03/10 Bcx 02/27 P . mirabilis, probable amp-C; VRE, CONS; 03/11 Bcx 2/2 sets S.epi; 03/15 12/30 S. epi, 1 VRE; 03/16 Bcx 3/S.epi, 1/ VRE -CT abd/p: Cardiomegaly. Evidence of left ventricular muscular hypertrophy. Bilateral lower lobe and inferior lingular ill-defined parenchymal infiltrates, likely pneumonia but could indicate a component of pulmonary edema. Incidental findings as noted, including right renal cyst, evidence of prior hysterectomy, pacemaker, PICC, coronary stents and calcifications Enlarged heterogeneous thyroid. No acute abdominal process cholelithiasis and/ or gallbladder sludge. Diastasis of the rectus abdominis tendon and small fat- containing ventral hernia, also demonstrated previously. Confirmed COVID-19. 02/19 SARS-CoV PCR positive. -1st repeat neg 03/11 ; 2nd repeat is positive 03/13 Pneumonia Mild leukocytosis, SP -03/09 u/a wbc 40-60, nit neg, leuk +3 Fever, recurrent, SP VDRF- sp self extubation 03/05, now on at RA - likely 2/2 COVID, less likely active bacterial superinfection since pt just completed empiric course of antibacterial therapy and sputum cx NG -03/07 CXR: Persistent vascular congestion and suspected interstitial edema.Cardiomegaly with pacer. - 03/01 CXR: Worsening bilateral hazy parenchymal infiltrates, versus edema - 02/20 CXR: Mild pulmonary vascular congestion with subtle bilateral haziness, not significantly changed.Possible tiny pleural effusions. Cardiomegaly. - Bcx ngtd - sp cx normal gui Less likely UTI u/a wbc tnct, nit +, leuk +3; ucx cindy(colonizer) Hx of positive blood culture CONS ,persistent; recurrent 02/04 BCx: CoNS 3 Bc: (1/2)CoNS and Citrobacter 01/27 , 02/01 Bc: CoNS - (outside facility, # of the +ve cultures are not clear) A 2D echo from outside facility did not show any evidence of vegetation as per Carido pt is high risk for CLAY: ( last admission ) Diabetes. CHF. ESRD. Hypertension. Obesity. 03/08 SP PICC Line placement; removd on 03/15 and new one placed PLAN: Continue Cefepime #6(abx d #08/09) for Proteus bacteremia Daptomycin #9 for VRE and S.epi bacteremia; Will add Linezolid #3 for synergisms 03/15 SP Meropenem #4 03/12/20 SP IV Vancomycin #2 03/08 SP vancomycin, day # ? ( will Rx for probable SBE) 02/27 SP plaquenil+azithromycin #5 02/25 SP Ertapenem #8 02/24 DC amikacin #6 Monitor CBC. Monitor BMP. 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 Subjective Allergies: Coded Allergies: NO KNOWN ALLERGIES (Unverified Allergy, Unknown, 10/15/15) Subjective afebrile at RA mild leukocytosis Objective Vital Signs Last 24 Hour Vital Signs Date Time Temp Pulse Resp B/P (MAP) Pulse Ox O2 Delivery O2 Flow Rate FiO2 03/20/20 12:00 98.7 88 20 118/60 (79) 96 03/20/20 09:00 80 110/54 03/20/20 09:00 Room Air 03/20/20 08:00 98.0 80 20 110/54 (72) 94 03/20/20 00:00 98.1 83 20 105/50 (68) 03/19/20 21:00 Room Air 03/19/20 20:00 98.2 93 20 125/49 (74) 94 03/19/20 16:00 98.8 85 20 128/65 (86) 95 Height (Feet): 5 Height (Inches): 7.00 Weight (Pounds): 208 Objective not seen to limit COVID19 exposure Laboratory Tests Test 03/20/20 06:14 White Blood Count 12.2 K/UL (4.8-10.8) H Red Blood Count 4.28 M/UL (4.20-5.40) Hemoglobin 10.2 G/DL (12.0-16.0) L Hematocrit 33.2 % (37.0-47.0) L Mean Corpuscular Volume 77 FL (80-99) L Mean Corpuscular Hemoglobin 23.9 PG (27.0-31.0) L Mean Corpuscular Hemoglobin Concent 30.9 G/DL (32.0-36.0) L Red Cell Distribution Width 17.6 % (11.6-14.8) H Platelet Count 251 K/UL (150-450) Mean Platelet Volume 6.3 FL (6.5-10.1) L Neutrophils (%) (Auto) 59.6 % (45.0-75.0) Lymphocytes (%) (Auto) 22.2 % (20.0-45.0) Monocytes (%) (Auto) 12.8 % (1.0-10.0) H Eosinophils (%) (Auto) 4.2 % (0.0-3.0) H Basophils (%) (Auto) 1.2 % (0.0-2.0) Sodium Level 143 MMOL/L (136-145) Potassium Level 4.8 MMOL/L (3.5-5.1) Chloride Level 99 MMOL/L (98-107) Carbon Dioxide Level 30 MMOL/L (21-32) Anion Gap 14 mmol/L (5-15) Blood Urea Nitrogen 56 mg/dL (7-18) H Creatinine 9.8 MG/DL (0.55-1.30) H Estimat Glomerular Filtration Rate 4.8 mL/min (>60) Glucose Level 154 MG/DL (74-106) H Calcium Level 9.4 MG/DL (8.5-10.1) Phosphorus Level 5.0 MG/DL (2.5-4.9) H Magnesium Level 3.1 MG/DL (1.8-2.4) H Total Bilirubin 1.0 MG/DL (0.2-1.0) Aspartate Amino Transf (AST/SGOT) 36 U/L (15-37) Alanine Aminotransferase (ALT/SGPT) 32 U/L (12-78) Alkaline Phosphatase 243 U/L (46-116) H Total Protein 8.5 G/DL (6.4-8.2) H Albumin 3.8 G/DL (3.4-5.0) Globulin 4.7 g/dL Albumin/Globulin Ratio 0.8 (1.0-2.7) L Current Medications Medications (Trade) Dose Ordered Sig/Josi Route PRN Reason Start Time Stop Time Status Last Admin Dose Admin Acetaminophen (Tylenol) 650 mg Q4H PRN GT fever 03/10/20 23:45 04/07/20 23:39 Albuterol/ Ipratropium (Combivent Respimat) 1 puff Q4H PRN INH Shortness of Breath 03/10/20 23:45 04/07/20 23:40 Amlodipine Besylate (Norvasc) 2.5 mg DAILY NG 03/12/20 09:00 04/11/20 08:59 03/19/20 09:55 Atorvastatin Calcium (Lipitor) 10 mg BEDTIME NG 03/11/20 21:00 05/25/20 20:59 03/19/20 22:25 Cefepime HCl 500 mg/Dextrose 55 ml @ 110 mls/hr Q24H IVPB 03/15/20 21:00 03/22/20 20:59 03/19/20 22:23 Chlorhexidine Gluconate (Jenny-Hex 2%) 1 applic DAILY@1999 TOPIC 03/14/20 20:00 06/12/20 19:59 03/19/20 22:50 Chlorhexidine Gluconate (Jenny-Hex 2%) 1 applic DAILY@1999 TOPIC 03/18/20 20:00 06/16/20 19:59 03/19/20 20:00 Daptomycin 800 mg/ Sodium Chloride 55 ml @ 100 mls/hr Q48H IV 03/13/20 21:00 03/20/20 20:59 03/19/20 22:18 Epoetin Jose De Jesus (Epoetin Jose De Jesus(ESRD on dialysis)) 8,000 unit SUN-SUN-SUN SUBQ 03/15/20 21:00 06/13/20 20:59 03/19/20 21:00 Heparin Sodium (Porcine) (Heparin 5000 units/ml) 5,000 units EVERY 12 HOURS SUBQ 03/11/20 09:00 04/10/20 08:59 03/19/20 23:01 Insulin Aspart (NovoLOG) Q6HR SUBQ 03/11/20 00:00 05/20/20 12:29 03/20/20 12:00 Linezolid (Zyvox) 600 mg EVERY 12 HOURS ORAL 03/18/20 21:00 03/23/20 20:59 03/20/20 10:14 Morphine Sulfate (Morphine Sulfate) 4 mg Q6H PRN IVP For Pain 03/15/20 12:15 03/22/20 12:14 Ondansetron HCl (Zofran) 4 mg Q6H PRN IVP Nausea & Vomiting 03/11/20 00:30 03/26/20 06:29 Pantoprazole (Protonix) 40 mg EVERY 12 HOURS ORAL 03/17/20 21:00 04/16/20 20:59 03/20/20 10:14 Pyridoxine HCl (Vitamin B6) 50 mg DAILY ORAL 03/18/20 09:00 04/17/20 08:59 03/20/20 10:14 Sevelamer Carbonate (Renvela) 1,600 mg TID NG 03/18/20 13:00 05/25/20 11:59 03/20/20 12:45 Thiamine HCl (Vitamin B1) 100 mg DAILY ORAL 03/18/20 09:00 04/17/20 08:59 03/20/20 10:14 Susi Vanegas M.D. Mar 20, 2020 15:50
[2020-03-20 16:00] VITALS: BP 122/64
--- NOTE | 2020-03-20 19:15 | NUR ---
HAND-OFF: Report given to Zev SLOAN. Addendum: 03/20/20 at 6 by Trudy Godinez RN Amended: Links added.
--- NOTE | 2020-03-20 19:45 | Cardiology Progress Note ---
Assessment/Plan Problem List: (1) COVID-19 virus infection (2) Acute respiratory failure (3) Morbid obesity (4) ARDS (adult respiratory distress syndrome) (5) Diabetes (6) Pacemaker (7) Anemia in chronic kidney disease (8) ESRD (end stage renal disease) on dialysis Status: stable, unchanged Status Narrative Pt w/ COVID 19 infection, pneumonia w/respiratory failure, s/p intubation and self-extubation. Now w/ bld cx + for s epi and VRE. She is afebrile, w/ mild leukocytosis and normotensive ESRD, on dialysis hx of HTN Assessment/Plan Continue current meds. she is on low dose amlodipine for BP Continue HD per Dr. Hunter Continue iv antibiotics per ID. Uncertain source of bacteremia. Would not favor CLAY, due to + COVID Subjective Subjective Cardiology for Dr. Reyna Events noted. Sedated, per RN Objective Last 24 Hour Vital Signs Date Time Temp Pulse Resp B/P (MAP) Pulse Ox O2 Delivery O2 Flow Rate FiO2 03/20/20 16:00 97.9 90 19 122/64 (83) 97 03/20/20 12:00 98.7 88 20 118/60 (79) 96 03/20/20 09:00 80 110/54 03/20/20 09:00 Room Air 03/20/20 08:00 98.0 80 20 110/54 (72) 94 03/20/20 00:00 98.1 83 20 105/50 (68) 03/19/20 21:00 Room Air 03/19/20 20:00 98.2 93 20 125/49 (74) 94 General Appearance: no apparent distress - not examined due to COVID 19 isolation Intake and Output 03/19/20 03/20/20 19:00 07:00 Intake Total 240 ml Output Total 0 ml Balance 240 ml 0 ml Intake Oral 240 ml Output Urine Total 0 ml Laboratory Tests Test 03/20/20 06:14 White Blood Count 12.2 K/UL (4.8-10.8) H Red Blood Count 4.28 M/UL (4.20-5.40) Hemoglobin 10.2 G/DL (12.0-16.0) L Hematocrit 33.2 % (37.0-47.0) L Mean Corpuscular Volume 77 FL (80-99) L Mean Corpuscular Hemoglobin 23.9 PG (27.0-31.0) L Mean Corpuscular Hemoglobin Concent 30.9 G/DL (32.0-36.0) L Red Cell Distribution Width 17.6 % (11.6-14.8) H Platelet Count 251 K/UL (150-450) Mean Platelet Volume 6.3 FL (6.5-10.1) L Neutrophils (%) (Auto) 59.6 % (45.0-75.0) Lymphocytes (%) (Auto) 22.2 % (20.0-45.0) Monocytes (%) (Auto) 12.8 % (1.0-10.0) H Eosinophils (%) (Auto) 4.2 % (0.0-3.0) H Basophils (%) (Auto) 1.2 % (0.0-2.0) Sodium Level 143 MMOL/L (136-145) Potassium Level 4.8 MMOL/L (3.5-5.1) Chloride Level 99 MMOL/L (98-107) Carbon Dioxide Level 30 MMOL/L (21-32) Anion Gap 14 mmol/L (5-15) Blood Urea Nitrogen 56 mg/dL (7-18) H Creatinine 9.8 MG/DL (0.55-1.30) H Estimat Glomerular Filtration Rate 4.8 mL/min (>60) Glucose Level 154 MG/DL (74-106) H Calcium Level 9.4 MG/DL (8.5-10.1) Phosphorus Level 5.0 MG/DL (2.5-4.9) H Magnesium Level 3.1 MG/DL (1.8-2.4) H Total Bilirubin 1.0 MG/DL (0.2-1.0) Aspartate Amino Transf (AST/SGOT) 36 U/L (15-37) Alanine Aminotransferase (ALT/SGPT) 32 U/L (12-78) Alkaline Phosphatase 243 U/L (46-116) H Total Protein 8.5 G/DL (6.4-8.2) H Albumin 3.8 G/DL (3.4-5.0) Globulin 4.7 g/dL Albumin/Globulin Ratio 0.8 (1.0-2.7) L Objective exam deferred due to COVID 19 isolation Janay Amos MD Mar 20, 2020 19:45
[2020-03-20 20:00] VITALS: BP 104/56
[2020-03-20] MEDS: Dyna-Hex 2% Top Sol 2oz TOPIC SCH ×2 (20:00→20:35)
[2020-03-20] MEDS: Cefepime HCl 500 MG in D5W 55 ML IVPB SCH (21:27)
--- NOTE | 2020-03-20 23:13 | NUR ---
NURSE NOTES: pt awake alert, receiving hd at this time. pt has restlessness, dr Henning paged for prn medication awaiting call back. bed at lowest position, bilateral soft wrist restraints applied, no swelling on both upper extremities, radial pulses present
[2020-03-21] VITALS: BP 132/60
[2020-03-21] MEDS: NovoLOG Insulin Flexpen SUBQ SCH ×4 (00:17→17:31)
[2020-03-21 04:00] VITALS: BP 99/58
--- NOTE | 2020-03-21 06:46 | NUR ---
NURSE NOTES: picc patent and intact. lab specimens sent to lab
[2020-03-21 06:55] LABS: ANION GAP 13 mmol/L (5-15); BLOOD UREA NITROGEN 44 mg/dL (7-18); CALCIUM 9.7 MG/DL (8.5-10.1); CARBON DIOXIDE 28 MMOL/L (21-32); CHLORIDE 99 MMOL/L (98-107); CREATINE KINASE 137 U/L (26-308); CREATININE 8.1 MG/DL (0.55-1.30); POTASSIUM 4.2 MMOL/L (3.5-5.1); SODIUM 140 MMOL/L (136-145)
--- NOTE | 2020-03-21 07:00 | NUR ---
HAND-OFF: Report given to MATI SLOAN.
--- NOTE | 2020-03-21 07:19 | NUR ---
NURSE NOTES: Report received from Zev SLOAN. Patient seen on rounds, AxOx1-2, not in distress, no outward sx of pain. Noted PICC on left upper arm, patent and intact. Patient has bilateral soft wrist restraints, good circulation noted, palpable pulses. Patient is anuric due to dx of ESRD. AV fistula (+) bruit and thrill on right upper arm. Bed low and locked, siderails up x2, alarms on zone 1, will continue to monitor.
[2020-03-21 08:00] VITALS: BP 103/61
--- NOTE | 2020-03-21 08:35 | General Progress Note ---
Assessment/Plan Problem List: (1) Obesity (BMI 30-39.9) ICD Codes: E66.9 - Obesity, unspecified SNOMED: 640371065, 549533715 (2) COVID-19 virus infection ICD Codes: U07.1 - COVID-19 SNOMED: 473395256 (3) Acute respiratory failure ICD Codes: J96.00 - Acute respiratory failure, unspecified whether with hypoxia or hypercapnia SNOMED: 05063692 (4) Blindness of both eyes ICD Codes: H54.0 - Blindness SNOMED: 584187593 (5) ESRD (end stage renal disease) on dialysis ICD Codes: N18.6 - End stage renal disease; Z99.2 - Dependence on renal dialysis SNOMED: 778988548 (6) Anemia ICD Codes: D64.9 - Anemia, unspecified SNOMED: 644201339 (7) Diabetes ICD Codes: E11.9 - Type 2 diabetes mellitus without complications SNOMED: 42077799 (8) AMS (altered mental status) ICD Codes: R41.82 - Altered mental status, unspecified SNOMED: 543052276 Status: unchanged Assessment/Plan: vent abx dialysis cbc bmp am ltach eval Subjective Constitutional: Reports: weakness Allergies: Coded Allergies: NO KNOWN ALLERGIES (Unverified Allergy, Unknown, 10/15/15) All Systems: reviewed and negative except above Subjective lethargic sleepy Objective Last 24 Hour Vital Signs Date Time Temp Pulse Resp B/P (MAP) Pulse Ox O2 Delivery O2 Flow Rate FiO2 03/21/20 04:00 97.9 101 19 99/58 (72) 97 03/21/20 00:00 97.9 100 19 132/60 (84) 97 03/20/20 21:00 Room Air 03/20/20 20:00 97.9 90 19 104/56 (72) 97 03/20/20 16:00 97.9 90 19 122/64 (83) 97 03/20/20 12:00 98.7 88 20 118/60 (79) 96 03/20/20 09:00 80 110/54 03/20/20 09:00 Room Air Intake and Output 03/20/20 03/21/20 19:00 07:00 Intake Total 300 ml 100 ml Output Total 1000 ml Balance 300 ml -900 ml Intake Oral 300 ml 100 ml Hemodialysis UF 1000 ml Laboratory Tests 03/21/20 05:00: Sodium Level 140, Potassium Level 4.2, Chloride Level 99, Carbon Dioxide Level 28, Anion Gap 13, Blood Urea Nitrogen 44H, Creatinine 8.1H, Estimat Glomerular Filtration Rate 6.1, Glucose Level 158H, Calcium Level 9.7, Total Creatine Kinase 137 Height (Feet): 5 Height (Inches): 7.00 Weight (Pounds): 208 General Appearance: lethargic EENT: normal ENT inspection Neck: normal alignment Cardiovascular: regular rhythm, regularly irregular Respiratory/Chest: no respiratory distress, no accessory muscle use Extremities: normal inspection Skin: normal pigmentation Roderick Henning DO Mar 21, 2020 08:35
[2020-03-21] MEDS: Pyridoxine 50mg tab ORAL SCH (09:43)
[2020-03-21] MEDS: Thiamine 100mg tab ORAL SCH (09:43)
[2020-03-21] MEDS: Renvela 800mg Pkt NG SCH ×3 (09:43→17:30)
[2020-03-21] MEDS: Heparin 5000 units/ml inj SUBQ SCH ×2 (09:45→22:10)
--- NOTE | 2020-03-21 10:07 | Pulmonology Progress Note ---
Assessment/Plan Assessment/Plan ASSESSMENT COVID 19 pneumonia -confirmed Acute respiratory failure requiring intubation, secondary to COVID 19 infection , status post self extubation Persistent bacteremia with recurrent fevers -presumed ? SBE ESRD, on HD Diabetes mellitus Hypertension Pacemaker Jehovah witness Obesity hypoventilation syndrome Anemia PLAN of CARE [facility] floor s/p self extubated ABG stable, pulse ox OK O2 HHN PRN fup CXR noted, CT chest noted IV Vanco for 6-week for possible SBE as per ID recs ID also recommends WBC scan to evaluate for possible AVF infection BCX 03/09 + VFRE, CoNS BCX 03/10 + VFRE, CoNS due to persistent + BCX and failure of vanco, changed to Dapto and Linezolid added for synergy as per ID recs , BCX 03/11 NGTD bacteremia likely 2 to endovascular source ( AV shunt infection or endocarditis ) still in isolation as per ID, last ROSA CoVID-2 by PCR + Echo from [facility] w/out evidence of vegetation ( per cardio patient at high risk to have CLAY ) UCX with Candice - likely colonizer -per ID s/p Plaquenil and azithromycin for 5 days influenza screen NGT asp precautions diet started as per ST recs (after swallow eval) HD as per nephro with close monitoring of volumes and renal parameters correct lytes as needed DVT, GI prophylaxis case discussed and evaluated by supervising physician Subjective ROS Limited/Unobtainable: No Constitutional: Reports: no symptoms HEENT: Repors: no symptoms Respiratory: Reports: no symptoms Allergies: Coded Allergies: NO KNOWN ALLERGIES (Unverified Allergy, Unknown, 10/15/15) All Systems: reviewed and negative except above Subjective no signs of resp distress remains in isolation, last ROSA CoV PCR 03/13 still detected Objective Last 24 Hour Vital Signs Date Time Temp Pulse Resp B/P (MAP) Pulse Ox O2 Delivery O2 Flow Rate FiO2 03/21/20 09:00 98 103/61 03/21/20 04:00 97.9 101 19 99/58 (72) 97 03/21/20 00:00 97.9 100 19 132/60 (84) 97 03/20/20 21:00 Room Air 03/20/20 20:00 97.9 90 19 104/56 (72) 97 03/20/20 16:00 97.9 90 19 122/64 (83) 97 03/20/20 12:00 98.7 88 20 118/60 (79) 96 Intake and Output 03/20/20 03/21/20 19:00 07:00 Intake Total 300 ml 100 ml Output Total 1000 ml Balance 300 ml -900 ml Intake Oral 300 ml 100 ml Hemodialysis UF 1000 ml Objective General Appearance: no acute distress, morbidly obese AA female HEENT: normocephalic, atraumatic Respiratory/Chest: decreased breath sounds Cardiovascular: normal rate, PICC intact Abdomen: normal bowel sounds, soft, non tender , obese Extremities: trace edema BLE, RUE AV shunt + bruit/thrill Neurologic/Psychiatric: abnormal gait, alert, responsive Musculoskeletal: atrophy - BLE General Appearance: other - morbidly obese AA female Cardiovascular: other - LUE PICC intact Extremities: other - trace edema BLE, RUE AV shunt + bruit/thrill Laboratory Tests 03/21/20 05:00: Sodium Level 140, Potassium Level 4.2, Chloride Level 99, Carbon Dioxide Level 28, Anion Gap 13, Blood Urea Nitrogen 44H, Creatinine 8.1H, Estimat Glomerular Filtration Rate 6.1, Glucose Level 158H, Calcium Level 9.7, Total Creatine Kinase 137 Current Medications Medications (Trade) Dose Ordered Sig/Josi Route PRN Reason Start Time Stop Time Status Last Admin Dose Admin Acetaminophen (Tylenol) 650 mg Q4H PRN GT fever 03/10/20 23:45 04/07/20 23:39 Albuterol/ Ipratropium (Combivent Respimat) 1 puff Q4H PRN INH Shortness of Breath 03/10/20 23:45 04/07/20 23:40 Amlodipine Besylate (Norvasc) 2.5 mg DAILY NG 03/12/20 09:00 04/11/20 08:59 03/19/20 09:55 Atorvastatin Calcium (Lipitor) 10 mg BEDTIME NG 03/11/20 21:00 05/25/20 20:59 03/20/20 20:35 Cefepime HCl 500 mg/Dextrose 55 ml @ 110 mls/hr Q24H IVPB 03/15/20 21:00 03/22/20 20:59 03/20/20 21:27 Chlorhexidine Gluconate (Jenny-Hex 2%) 1 applic DAILY@1999 TOPIC 03/14/20 20:00 06/12/20 19:59 03/19/20 22:50 Chlorhexidine Gluconate (Jenny-Hex 2%) 1 applic DAILY@2000 TOPIC 03/18/20 20:00 06/16/20 19:59 03/20/20 20:35 Epoetin Jose De Jesus (Epoetin Jose De Jesus(ESRD on dialysis)) 8,000 unit SUN-SUN-SUN SUBQ 03/15/20 21:00 06/13/20 20:59 03/19/20 21:00 Heparin Sodium (Porcine) (Heparin 5000 units/ml) 5,000 units EVERY 12 HOURS SUBQ 03/11/20 09:00 04/10/20 08:59 03/21/20 09:45 Insulin Aspart (NovoLOG) Q6HR SUBQ 03/11/20 00:00 05/20/20 12:29 03/21/20 05:51 Linezolid (Zyvox) 600 mg EVERY 12 HOURS ORAL 03/18/20 21:00 03/23/20 20:59 03/21/20 09:43 Morphine Sulfate (Morphine Sulfate) 4 mg Q6H PRN IVP For Pain 03/15/20 12:15 03/22/20 12:14 Ondansetron HCl (Zofran) 4 mg Q6H PRN IVP Nausea & Vomiting 03/11/20 00:30 03/26/20 06:29 Pantoprazole (Protonix) 40 mg EVERY 12 HOURS ORAL 03/17/20 21:00 04/16/20 20:59 03/21/20 09:43 Pyridoxine HCl (Vitamin B6) 50 mg DAILY ORAL 03/18/20 09:00 04/17/20 08:59 03/21/20 09:43 Sevelamer Carbonate (Renvela) 1,600 mg TID NG 03/18/20 13:00 05/25/20 11:59 03/21/20 09:43 Thiamine HCl (Vitamin B1) 100 mg DAILY ORAL 03/18/20 09:00 04/17/20 08:59 03/21/20 09:43 Chastity Velasco [employer] DOCUMENTATION DEVELOPER Mar 21, 2020 10:07
[2020-03-21 12:00] VITALS: BP 110/64
--- NOTE | 2020-03-21 12:46 | GI Progress Note ---
Assessment/Plan Problems: (1) Sepsis ICD Codes: A41.9 - Sepsis, unspecified organism SNOMED: 47204760 (2) COVID-19 virus infection ICD Codes: U07.1 - COVID-19 SNOMED: 080332630 (3) At high risk for aspiration ICD Codes: Z91.89 - Other specified personal risk factors, not elsewhere classified SNOMED: 639747874 Status: not improved Status Narrative DIS Assessment/Plan 1. Diabetes. 2. End-stage renal disease, on hemodialysis. 3. Chronic anemia. 4. Obesity. 5. Gastritis. 6. Kidney stones. 7. Abdominal hernia. 8. Hiatal hernia. 9. Cardiomegaly. 10. Hypercholesterolemia. 11. Hypertension. 12. Bilateral eye blindness. 13. Coronary artery disease and cardiac stent placement. 14. History of EtOH and cocaine abuse in the past. 15. Dysphagia abd CT reviewed repeat labs COVID positive swallow eval appreciated on diet fu cardiology and Id recs GI procedures only if emergent The patient was seen and examined at bedside and all new and available data was reviewed in the patients chart. I agree with the above findings, impression and plan. (Patient seen earlier today. Signature stamp does not reflect patient encounter time.). - Jamison Garcia MD Subjective Subjective limited Objective Last 24 Hour Vital Signs Date Time Temp Pulse Resp B/P (MAP) Pulse Ox O2 Delivery O2 Flow Rate FiO2 03/21/20 09:00 98 103/61 03/21/20 09:00 Room Air 03/21/20 08:00 98.0 98 20 103/61 (75) 98 03/21/20 04:00 97.9 101 19 99/58 (72) 97 03/21/20 00:00 97.9 100 19 132/60 (84) 97 03/20/20 21:00 Room Air 03/20/20 20:00 97.9 90 19 104/56 (72) 97 03/20/20 16:00 97.9 90 19 122/64 (83) 97 Intake and Output 03/20/20 03/21/20 19:00 07:00 Intake Total 300 ml 100 ml Output Total 1000 ml Balance 300 ml -900 ml Intake Oral 300 ml 100 ml Hemodialysis UF 1000 ml Laboratory Tests Test 03/21/20 05:00 Sodium Level 140 MMOL/L (136-145) Potassium Level 4.2 MMOL/L (3.5-5.1) Chloride Level 99 MMOL/L (98-107) Carbon Dioxide Level 28 MMOL/L (21-32) Anion Gap 13 mmol/L (5-15) Blood Urea Nitrogen 44 mg/dL (7-18) H Creatinine 8.1 MG/DL (0.55-1.30) H Estimat Glomerular Filtration Rate 6.1 mL/min (>60) Glucose Level 158 MG/DL (74-106) H Calcium Level 9.7 MG/DL (8.5-10.1) Total Creatine Kinase 137 U/L (26-308) Height (Feet): 5 Height (Inches): 7.00 Weight (Pounds): 208 General Appearance: WD/WN, no apparent distress, alert Cardiovascular: normal rate Respiratory/Chest: normal breath sounds, no respiratory distress Abdominal Exam: normal bowel sounds, non tender, soft Extremities: non-tender Jaime Martin NP Mar 21, 2020 12:46
--- NOTE | 2020-03-21 13:22 | Nephrology Progress Note ---
Assessment/Plan Problem List: (1) Acute respiratory failure (2) ESRD (end stage renal disease) on dialysis (3) UTI (urinary tract infection) (4) Patient is [employer] (5) Pacemaker (6) Diabetes (7) Obesity (BMI 30-39.9) Assessment ARDS (adult respiratory distress syndrome) Fever Sepsis UTI (urinary tract infection) Respiratory failure, intubated on ventilator Thrombocytopenia Lymphopenia End stage renal disease on dialysis. Has a right upper arm dialysis fistula as Acces . Getting dialysis Sunday. morbid obesity Anemia / Jehova's witness CAD previous stent HTN- hypertensive urgency upon arrival to [facility]. s/p AVG DM 2 bilateral eye blindness h/o CHF Pacemaker Plan NG tube is out not takes p.o., will change all IV medication to p.o. Patient extubated March 04, and remains extubated, now in MedSurg floor Patient positive for Covid 19 Per ID and pulmonary, Last dialyzed March 20 next dialysis March 23 EPO, thiamin and b6 Phos binders NGT feeding per consultants Remains full code at this time Subjective ROS Limited/Unobtainable: No Constitutional: Reports: malaise, weakness Objective Objective Last 24 Hour Vital Signs Date Time Temp Pulse Resp B/P (MAP) Pulse Ox O2 Delivery O2 Flow Rate FiO2 03/21/20 12:00 98.6 100 20 110/64 (79) 99 03/21/20 09:00 98 103/61 03/21/20 09:00 Room Air 03/21/20 08:00 98.0 98 20 103/61 (75) 98 03/21/20 04:00 97.9 101 19 99/58 (72) 97 03/21/20 00:00 97.9 100 19 132/60 (84) 97 03/20/20 21:00 Room Air 03/20/20 20:00 97.9 90 19 104/56 (72) 97 03/20/20 16:00 97.9 90 19 122/64 (83) 97 Intake and Output 03/20/20 03/21/20 19:00 07:00 Intake Total 300 ml 100 ml Output Total 1000 ml Balance 300 ml -900 ml Intake Oral 300 ml 100 ml Hemodialysis UF 1000 ml Laboratory Tests 03/21/20 05:00: Sodium Level 140, Potassium Level 4.2, Chloride Level 99, Carbon Dioxide Level 28, Anion Gap 13, Blood Urea Nitrogen 44H, Creatinine 8.1H, Estimat Glomerular Filtration Rate 6.1, Glucose Level 158H, Calcium Level 9.7, Total Creatine Kinase 137 Height (Feet): 5 Height (Inches): 7.00 Weight (Pounds): 208 General Appearance: no apparent distress Cardiovascular: tachycardia Respiratory/Chest: decreased breath sounds Abdomen: distended Objective No change Bryan Hutner MD Mar 21, 2020 13:22
--- NOTE | 2020-03-21 13:32 | NUR ---
NURSE NOTES: Labs called to inform display card writer that CBC specimen not received. Attempted to draw, patient refused. Explained risks and benefits, patient still refused. Notified labs and Dr. Henning.
[2020-03-21 13:39] LABS: ALANINE AMINOTRANSFERASE 19 U/L (12-78); ALBUMIN 3.7 G/DL (3.4-5.0); ALKALINE PHOSPHATASE 206 U/L (46-116); ASPARTATE AMINO TRANSFERASE 44 U/L (15-37); BILIRUBIN,DIRECT 0.3 MG/DL (0.0-0.3); PHOSPHORUS 4.2 MG/DL (2.5-4.9)
--- NOTE | 2020-03-21 18:06 | Cardiology Progress Note ---
Assessment/Plan Problem List: (1) COVID-19 virus infection (2) Acute respiratory failure (3) Morbid obesity (4) ARDS (adult respiratory distress syndrome) (5) Diabetes (6) Pacemaker (7) Anemia in chronic kidney disease (8) ESRD (end stage renal disease) on dialysis Status: stable, unchanged Status Narrative Pt w/ COVID 19 pneumonia, resp failure. Now extubated, awake She has multiple bld cx + for s epi and VRE. However, she is afebrile, w/ mild leukocytosis and nl BP ESRD, on dialysis hx of HTN Assessment/Plan Continue current meds. Dialysis per Dr. Hunter Continue iv antibiotics - linezolid, cefipime , per ID Labs to be done at dialysis Subjective ROS Limited/Unobtainable: Yes Subjective Cardiology for Dr. Reyna Events noted. Pt awake, in NAD, refusing blood draw per RN. Objective Last 24 Hour Vital Signs Date Time Temp Pulse Resp B/P (MAP) Pulse Ox O2 Delivery O2 Flow Rate FiO2 03/21/20 12:00 98.6 100 20 110/64 (79) 99 03/21/20 09:00 98 103/61 03/21/20 09:00 Room Air 03/21/20 08:00 98.0 98 20 103/61 (75) 98 03/21/20 04:00 97.9 101 19 99/58 (72) 97 03/21/20 00:00 97.9 100 19 132/60 (84) 97 03/20/20 21:00 Room Air 03/20/20 20:00 97.9 90 19 104/56 (72) 97 Intake and Output 03/20/20 03/21/20 19:00 07:00 Intake Total 300 ml 100 ml Output Total 1000 ml Balance 300 ml -900 ml Intake Oral 300 ml 100 ml Hemodialysis UF 1000 ml Laboratory Tests Test 03/21/20 05:00 Sodium Level 140 MMOL/L (136-145) Potassium Level 4.2 MMOL/L (3.5-5.1) Chloride Level 99 MMOL/L (98-107) Carbon Dioxide Level 28 MMOL/L (21-32) Anion Gap 13 mmol/L (5-15) Blood Urea Nitrogen 44 mg/dL (7-18) H Creatinine 8.1 MG/DL (0.55-1.30) H Estimat Glomerular Filtration Rate 6.1 mL/min (>60) Glucose Level 158 MG/DL (74-106) H Calcium Level 9.7 MG/DL (8.5-10.1) Phosphorus Level 4.2 MG/DL (2.5-4.9) Magnesium Level 2.9 MG/DL (1.8-2.4) H Total Bilirubin 1.0 MG/DL (0.2-1.0) Direct Bilirubin 0.3 MG/DL (0.0-0.3) Aspartate Amino Transf (AST/SGOT) 44 U/L (15-37) H Alanine Aminotransferase (ALT/SGPT) 19 U/L (12-78) Alkaline Phosphatase 206 U/L (46-116) H Total Creatine Kinase 137 U/L (26-308) Total Protein 8.7 G/DL (6.4-8.2) H Albumin 3.7 G/DL (3.4-5.0) Objective exam deferred due to COVID 19 isolation Janay Amos MD Mar 21, 2020 18:06
--- NOTE | 2020-03-21 19:32 | NUR ---
HAND-OFF: Report given to Judah SLOAN.
[2020-03-21 20:00] VITALS: BP 109/72
[2020-03-21] MEDS: Dyna-Hex 2% Top Sol 2oz TOPIC SCH ×2 (20:00→22:10)
--- NOTE | 2020-03-21 20:00 | NUR ---
NURSE NOTES: Patient in bed, awake ,aox3. Able to make simple needs known. Respiration is even and unlabored. Skin is warm and dry to touch. Abdomen is soft and non distended. No complaint of pain or discomfort noted. Midline noted. Bed in low and locked position. Provided safe environment. Restraints noted, skin intact at site. Patient fall risk and pulls out devices. Isolation precaution observed. Call light is at bedside. Will continue plan of care.
[2020-03-21] MEDS: Cefepime HCl 500 MG in D5W 55 ML IVPB SCH (22:10)
[2020-03-21] MEDS: LORazepam 1mg tab ORAL PRN (22:20)
[2020-03-22] VITALS: BP 114/70
[2020-03-22 04:00] VITALS: BP 113/96
[2020-03-22] MEDS: NovoLOG Insulin Flexpen SUBQ SCH ×4 (05:48→18:00)
--- NOTE | 2020-03-22 07:30 | NUR ---
NURSE NOTES: Report received from Judah SLOAN. Patient seen on rounds, AxOx3-4, not in distress, no outward sx of pain. Patient is off restraints, per RN was more lucid. RN explained temporary release of restraints for circulation. Noted PICC on left upper arm, patent and intact. Patient is anuric due to dx of ESRD. AV fistula (+) bruit and thrill on right upper arm, dressing intact, no bleeding noted. Bed low and locked, siderails up x2, alarms on zone 1, will continue to monitor
[2020-03-22 08:00] VITALS: BP 118/63
--- NOTE | 2020-03-22 08:54 | General Progress Note ---
Assessment/Plan Problem List: (1) Obesity (BMI 30-39.9) ICD Codes: E66.9 - Obesity, unspecified SNOMED: 046735942, 609621461 (2) COVID-19 virus infection ICD Codes: U07.1 - COVID-19 SNOMED: 833799573 (3) Acute respiratory failure ICD Codes: J96.00 - Acute respiratory failure, unspecified whether with hypoxia or hypercapnia SNOMED: 04854368 (4) Blindness of both eyes ICD Codes: H54.0 - Blindness SNOMED: 746508723 (5) ESRD (end stage renal disease) on dialysis ICD Codes: N18.6 - End stage renal disease; Z99.2 - Dependence on renal dialysis SNOMED: 582827940 (6) Anemia ICD Codes: D64.9 - Anemia, unspecified SNOMED: 548904490 (7) Diabetes ICD Codes: E11.9 - Type 2 diabetes mellitus without complications SNOMED: 42147348 (8) AMS (altered mental status) ICD Codes: R41.82 - Altered mental status, unspecified SNOMED: 937634531 Status: unchanged Assessment/Plan: vent abx dialysis cbc bmp am ltach eval Subjective Constitutional: Reports: weakness Allergies: Coded Allergies: NO KNOWN ALLERGIES (Unverified Allergy, Unknown, 10/15/15) All Systems: reviewed and negative except above Subjective lethargic sleepy Objective Last 24 Hour Vital Signs Date Time Temp Pulse Resp B/P (MAP) Pulse Ox O2 Delivery O2 Flow Rate FiO2 03/22/20 04:00 98.7 93 19 113/96 (102) 94 03/22/20 00:00 98.4 100 20 114/70 (85) 95 03/21/20 21:00 Room Air 03/21/20 20:00 98.0 106 20 109/72 (84) 95 03/21/20 12:00 98.6 100 20 110/64 (79) 99 03/21/20 09:00 98 103/61 03/21/20 09:00 Room Air Intake and Output 03/21/20 03/22/20 19:00 07:00 Intake Total 200 ml 55 ml Balance 200 ml 55 ml Intake Oral 200 ml IV Total 55 ml # Voids 2 # Bowel Movements 1 Height (Feet): 5 Height (Inches): 7.00 Weight (Pounds): 213 General Appearance: lethargic EENT: normal ENT inspection Neck: normal inspection Cardiovascular: regular rhythm, regularly irregular Respiratory/Chest: no respiratory distress, no accessory muscle use Extremities: normal inspection Skin: normal pigmentation Roderick Henning DO Mar 22, 2020 08:54
--- NOTE | 2020-03-22 08:59 | General Progress Note ---
Assessment/Plan Status: unchanged Assessment/Plan: 1. Diabetes. 2. End-stage renal disease, on hemodialysis. 3. Chronic anemia. 4. Obesity. 5. Gastritis. 6. Kidney stones. 7. Abdominal hernia. 8. Hiatal hernia. 9. Cardiomegaly. 10. Hypercholesterolemia. 11. Hypertension. 12. Bilateral eye blindness. 13. Coronary artery disease and cardiac stent placement. 14. History of EtOH and cocaine abuse in the past. 15. Dysphagia abd CT reviewed COVID positive swallow eval appreciated on diet \ fu cardiology and Id recs HD per nephrology Subjective ROS Limited/Unobtainable: No Allergies: Coded Allergies: NO KNOWN ALLERGIES (Unverified Allergy, Unknown, 10/15/15) Objective Last 24 Hour Vital Signs Date Time Temp Pulse Resp B/P (MAP) Pulse Ox O2 Delivery O2 Flow Rate FiO2 03/22/20 04:00 98.7 93 19 113/96 (102) 94 03/22/20 00:00 98.4 100 20 114/70 (85) 95 03/21/20 21:00 Room Air 03/21/20 20:00 98.0 106 20 109/72 (84) 95 03/21/20 12:00 98.6 100 20 110/64 (79) 99 03/21/20 09:00 98 103/61 03/21/20 09:00 Room Air Intake and Output 03/21/20 03/22/20 19:00 07:00 Intake Total 200 ml 55 ml Balance 200 ml 55 ml Intake Oral 200 ml IV Total 55 ml # Voids 2 # Bowel Movements 1 Height (Feet): 5 Height (Inches): 7.00 Weight (Pounds): 213 General Appearance: no apparent distress EENT: normal ENT inspection Neck: supple Cardiovascular: normal rate Respiratory/Chest: decreased breath sounds Abdomen: normal bowel sounds, non tender, soft Extremities: non-tender Jamison Garcia MD Mar 22, 2020 08:59
[2020-03-22 09:14] LABS: EOSINOPHILS % (AUTO) 7.7 % (0.0-3.0); HEMATOCRIT 33.3 % (37.0-47.0); HEMOGLOBIN 10.3 G/DL (12.0-16.0); MEAN CORPUSCULAR VOLUME 78 FL (80-99); MONOCYTES % (AUTO) 13.5 % (1.0-10.0); NEUTROPHILS % (AUTO) 51.9 % (45.0-75.0); PLATELET COUNT 205 K/UL (150-450); RED BLOOD COUNT 4.26 M/UL (4.20-5.40); WHITE BLOOD COUNT 10.1 K/UL (4.8-10.8)
[2020-03-22 09:32] LABS: PHOSPHORUS 4.8 MG/DL (2.5-4.9)
[2020-03-22 10:20] LABS: ANION GAP 16 mmol/L (5-15); BLOOD UREA NITROGEN 52 mg/dL (7-18); CALCIUM 9.9 MG/DL (8.5-10.1); CARBON DIOXIDE 24 MMOL/L (21-32); CHLORIDE 98 MMOL/L (98-107); POTASSIUM 4.6 MMOL/L (3.5-5.1); SODIUM 138 MMOL/L (136-145)
[2020-03-22] MEDS: Thiamine 100mg tab ORAL SCH (10:26)
[2020-03-22] MEDS: LORazepam 1mg tab ORAL PRN ×2 (10:26→20:50)
[2020-03-22] MEDS: Pyridoxine 50mg tab ORAL SCH (10:26)
[2020-03-22] MEDS: Renvela 800mg Pkt NG SCH ×3 (10:26→18:18)
[2020-03-22] MEDS: Heparin 5000 units/ml inj SUBQ SCH ×2 (10:27→20:52)
[2020-03-22] MEDS: Memantine 5 MG TAB ORAL SCH (10:32)
--- NOTE | 2020-03-22 10:37 | Nephrology Progress Note ---
Assessment/Plan Problem List: (1) Acute respiratory failure (2) ESRD (end stage renal disease) on dialysis (3) UTI (urinary tract infection) (4) Patient is [employer] (5) Pacemaker (6) Diabetes (7) Obesity (BMI 30-39.9) Assessment ARDS (adult respiratory distress syndrome) Fever Sepsis UTI (urinary tract infection) Respiratory failure, intubated on ventilator Thrombocytopenia Lymphopenia End stage renal disease on dialysis. Has a right upper arm dialysis fistula as Acces . Getting dialysis Sunday. morbid obesity Anemia / Jehova's witness CAD previous stent HTN- hypertensive urgency upon arrival to [facility]. s/p AVG DM 2 bilateral eye blindness h/o CHF Pacemaker Plan NG tube is out not takes p.o., will change all IV medication to p.o. Patient extubated March 04, and remains extubated, now in MedSurg floor Patient positive for Covid 19 Per ID and pulmonary, Last dialyzed March 20 next dialysis March 23 EPO, thiamin and b6 Phos binders NGT feeding per consultants Remains full code at this time Subjective ROS Limited/Unobtainable: No Constitutional: Reports: malaise, weakness Objective Objective Last 24 Hour Vital Signs Date Time Temp Pulse Resp B/P (MAP) Pulse Ox O2 Delivery O2 Flow Rate FiO2 03/22/20 10:30 98 118/63 03/22/20 04:00 98.7 93 19 113/96 (102) 94 03/22/20 00:00 98.4 100 20 114/70 (85) 95 03/21/20 21:00 Room Air 03/21/20 20:00 98.0 106 20 109/72 (84) 95 03/21/20 12:00 98.6 100 20 110/64 (79) 99 Intake and Output 03/21/20 03/22/20 19:00 07:00 Intake Total 200 ml 55 ml Balance 200 ml 55 ml Intake Oral 200 ml IV Total 55 ml # Voids 2 # Bowel Movements 1 Laboratory Tests 03/22/20 08:30: White Blood Count 10.1, Red Blood Count 4.26, Hemoglobin 10.3L, Hematocrit 33.3L , Mean Corpuscular Volume 78L, Mean Corpuscular Hemoglobin 24.1L, Mean Corpuscular Hemoglobin Concent 30.8L, Red Cell Distribution Width 18.0H, Platelet Count 205, Mean Platelet Volume 6.1L, Neutrophils (%) (Auto) 51.9, Lymphocytes (%) (Auto) 26.0, Monocytes (%) (Auto) 13.5H, Eosinophils (%) (Auto) 7.7H, Basophils (%) (Auto) 1.0, Sodium Level [Pending], Potassium Level [Pending ], Chloride Level [Pending], Carbon Dioxide Level [Pending], Blood Urea Nitrogen [Pending], Creatinine [Pending], Estimat Glomerular Filtration Rate [ Pending], Glucose Level [Pending], Calcium Level [Pending], Phosphorus Level 4.8 , Magnesium Level 2.9H Height (Feet): 5 Height (Inches): 7.00 Weight (Pounds): 213 General Appearance: no apparent distress, lethargic Cardiovascular: tachycardia Respiratory/Chest: decreased breath sounds Abdomen: distended Objective No change Bryan Hunter MD Mar 22, 2020 10:37
--- NOTE | 2020-03-22 11:44 | Pulmonology Progress Note ---
Assessment/Plan Problems: (1) Acute respiratory failure Assessment & Plan: extubated now (2) Bacteremia (3) COVID-19 virus infection (4) Accelerated hypertension (5) Sepsis (6) At high risk for aspiration (7) ESRD (end stage renal disease) on dialysis (8) Diabetes (9) Patient is [employer] (10) Morbid obesity Assessment/Plan still confused BC still positive still confused, off NG tube swallow study done, will need Barium swallow, on renal diet for now wbc still high improving on isolation afebrile in the last few days f/u cultures respiratory treatment Subjective ROS Limited/Unobtainable: No Constitutional: Reports: no symptoms HEENT: Repors: no symptoms Respiratory: Reports: no symptoms Allergies: Coded Allergies: NO KNOWN ALLERGIES (Unverified Allergy, Unknown, 10/15/15) All Systems: reviewed and negative except above Objective Last 24 Hour Vital Signs Date Time Temp Pulse Resp B/P (MAP) Pulse Ox O2 Delivery O2 Flow Rate FiO2 03/22/20 10:30 98 118/63 03/22/20 09:00 Room Air 03/22/20 08:00 98.0 98 20 118/63 (81) 97 03/22/20 04:00 98.7 93 19 113/96 (102) 94 03/22/20 00:00 98.4 100 20 114/70 (85) 95 03/21/20 21:00 Room Air 03/21/20 20:00 98.0 106 20 109/72 (84) 95 03/21/20 12:00 98.6 100 20 110/64 (79) 99 Intake and Output 03/21/20 03/22/20 19:00 07:00 Intake Total 200 ml 55 ml Balance 200 ml 55 ml Intake Oral 200 ml IV Total 55 ml # Voids 2 # Bowel Movements 1 Objective swallow study done, results reviewed General Appearance: WD/WN, other - morbidly obese AA female HEENT: normocephalic, atraumatic Respiratory/Chest: chest wall non-tender, normal breath sounds Cardiovascular: normal peripheral pulses, normal rate, other - LUE PICC intact Abdomen: normal bowel sounds, soft, non tender Genitourinary: normal external genitalia Extremities: no clubbing, other - trace edema BLE, RUE AV shunt + bruit/thrill Skin: no rash Microbiology Date/Time Source Procedure Growth Status 03/20/20 18:40 Blood Blood Culture - Preliminary NO GROWTH AFTER 24 HOURS Resulted 03/20/20 17:00 Blood Blood Culture - Preliminary NO GROWTH AFTER 24 HOURS Resulted Laboratory Tests 03/22/20 08:30: White Blood Count 10.1, Red Blood Count 4.26, Hemoglobin 10.3L, Hematocrit 33.3L , Mean Corpuscular Volume 78L, Mean Corpuscular Hemoglobin 24.1L, Mean Corpuscular Hemoglobin Concent 30.8L, Red Cell Distribution Width 18.0H, Platelet Count 205, Mean Platelet Volume 6.1L, Neutrophils (%) (Auto) 51.9, Lymphocytes (%) (Auto) 26.0, Monocytes (%) (Auto) 13.5H, Eosinophils (%) (Auto) 7.7H, Basophils (%) (Auto) 1.0, Sodium Level 138, Potassium Level 4.6, Chloride Level 98, Carbon Dioxide Level 24, Anion Gap 16H, Blood Urea Nitrogen 52H, Creatinine 10.0H, Estimat Glomerular Filtration Rate 4.7, Glucose Level 116H, Calcium Level 9.9, Phosphorus Level 4.8, Magnesium Level 2.9H Current Medications Medications (Trade) Dose Ordered Sig/Josi Route PRN Reason Start Time Stop Time Status Last Admin Dose Admin Acetaminophen (Tylenol) 650 mg Q4H PRN GT fever 03/10/20 23:45 04/07/20 23:39 Albuterol/ Ipratropium (Combivent Respimat) 1 puff Q4H PRN INH Shortness of Breath 03/10/20 23:45 04/07/20 23:40 Amlodipine Besylate (Norvasc) 2.5 mg DAILY NG 03/12/20 09:00 04/11/20 08:59 03/22/20 10:30 Atorvastatin Calcium (Lipitor) 10 mg BEDTIME NG 03/11/20 21:00 05/25/20 20:59 03/21/20 22:10 Cefepime HCl 500 mg/Dextrose 55 ml @ 110 mls/hr Q24H IVPB 03/15/20 21:00 03/22/20 20:59 03/21/20 22:10 Chlorhexidine Gluconate (Jenny-Hex 2%) 1 applic DAILY@1999 TOPIC 03/14/20 20:00 06/12/20 19:59 03/19/20 22:50 Chlorhexidine Gluconate (Jenny-Hex 2%) 1 applic DAILY@2000 TOPIC 03/18/20 20:00 06/16/20 19:59 03/21/20 22:10 Epoetin Jose De Jesus (Epoetin Jose De Jesus(ESRD on dialysis)) 8,000 unit SUN-SUN-SUN SUBQ 03/15/20 21:00 06/13/20 20:59 03/19/20 21:00 Heparin Sodium (Porcine) (Heparin 5000 units/ml) 5,000 units EVERY 12 HOURS SUBQ 03/11/20 09:00 04/10/20 08:59 03/22/20 10:27 Insulin Aspart (NovoLOG) Q6HR SUBQ 03/11/20 00:00 05/20/20 12:29 03/22/20 05:48 Linezolid (Zyvox) 600 mg EVERY 12 HOURS ORAL 03/18/20 21:00 03/23/20 20:59 03/22/20 10:26 Lorazepam (Ativan) 1 mg Q6H PRN ORAL For Anxiety 03/21/20 21:30 03/28/20 21:29 03/22/20 10:26 Memantine (Namenda) 5 mg DAILY ORAL 03/22/20 09:00 04/21/20 08:59 03/22/20 10:32 Morphine Sulfate (Morphine Sulfate) 4 mg Q6H PRN IVP For Pain 03/15/20 12:15 03/22/20 12:14 Ondansetron HCl (Zofran) 4 mg Q6H PRN IVP Nausea & Vomiting 03/11/20 00:30 03/26/20 06:29 Pantoprazole (Protonix) 40 mg EVERY 12 HOURS ORAL 03/17/20 21:00 04/16/20 20:59 03/22/20 10:26 Pyridoxine HCl (Vitamin B6) 50 mg DAILY ORAL 03/18/20 09:00 04/17/20 08:59 03/22/20 10:26 Sevelamer Carbonate (Renvela) 1,600 mg TID NG 03/18/20 13:00 05/25/20 11:59 03/22/20 10:26 Thiamine HCl (Vitamin B1) 100 mg DAILY ORAL 03/18/20 09:00 04/17/20 08:59 03/22/20 10:26 Meghana Murillo MD Mar 22, 2020 11:44
--- NOTE | 2020-03-22 11:44 | NUR ---
DISCHARGE PLANNING PATIENT HAS BEEN REFERRED BACK TO [facility] P: [phone] F: [phone] Addendum: 03/22/20 at 1438 by JHONNY BETTS LVN LVN FOLLOW UP CALL MADE TO [facility]. ADMISSIONS CURRENTLY UNAVAILABLE. LEFT REQUEST FOR CALL BACK.
[2020-03-22 12:00] VITALS: BP 115/58
--- NOTE | 2020-03-22 13:50 | Infectious Diseases Prog Note ---
Assessment/Plan Assessment/Plan The patient is a 64-year-old female with Proteus bacteremia Persistent/recurrent S.epi and VRE bactereima (despite 6 weeks of treatment)- highly suspicious for endovascular source (ie AVF infection, endocarditis) 03/09 Bcx 02/27 VRE, S. epi, 03/10 Bcx 02/27 P . mirabilis, probable amp-C; VRE, CONS; 03/11 Bcx 2/2 sets S.epi; 03/15 12/30 S. epi, 1/ VRE; 03/16 Bcx 3/S.epi, 1/ VRE, 03/20 Bcx 12/30 GPC clusters -CT abd/p: Cardiomegaly. Evidence of left ventricular muscular hypertrophy. Bilateral lower lobe and inferior lingular ill-defined parenchymal infiltrates, likely pneumonia but could indicate a component of pulmonary edema. Incidental findings as noted, including right renal cyst, evidence of prior hysterectomy, pacemaker, PICC, coronary stents and calcifications Enlarged heterogeneous thyroid. No acute abdominal process cholelithiasis and/ or gallbladder sludge. Diastasis of the rectus abdominis tendon and small fat- containing ventral hernia, also demonstrated previously. Confirmed COVID-19. 02/19 SARS-CoV PCR positive. -1st repeat neg 03/11 ; 2nd repeat is positive 03/13 Pneumonia Mild leukocytosis, SP -03/09 u/a wbc 40-60, nit neg, leuk +3 Fever, recurrent, SP VDRF- sp self extubation 03/05, now on at RA - likely 2/2 COVID, less likely active bacterial superinfection since pt just completed empiric course of antibacterial therapy and sputum cx NG -03/07 CXR: Persistent vascular congestion and suspected interstitial edema.Cardiomegaly with pacer. - 03/01 CXR: Worsening bilateral hazy parenchymal infiltrates, versus edema - 02/20 CXR: Mild pulmonary vascular congestion with subtle bilateral haziness, not significantly changed.Possible tiny pleural effusions. Cardiomegaly. - Bcx ngtd - sp cx normal gui Less likely UTI u/a wbc tnct, nit +, leuk +3; ucx cindy(colonizer) Hx of positive blood culture CONS ,persistent; recurrent 02/04 BCx: CoNS 01/30 Bc: (1/2)CoNS and Citrobacter 01/27 , 02/01 Bc: CoNS - (outside facility, # of the +ve cultures are not clear) A 2D echo from outside facility did not show any evidence of vegetation as per Carido pt is high risk for CLAY: ( last admission ) Diabetes. CHF. ESRD. Hypertension. Obesity. 03/08 SP PICC Line placement; removd on 03/15 and new one placed PLAN: Continue Cefepime #9(abx d #/) for Proteus bacteremia Daptomycin #12 for VRE and S.epi bacteremia; Will add Linezolid #6 for synergisms -monitor CPK, platelets 03/15 SP Meropenem #4 03/12/20 SP IV Vancomycin #2 03/08 SP vancomycin, day # ? ( will Rx for probable SBE) 02/27 SP plaquenil+azithromycin #5 02/25 SP Ertapenem #8 02/24 DC amikacin #6 Monitor CBC. Monitor BMP. Monitor cultures (blood, Sp ) COVID19 isolation as 2nd repeat test is still positive f/u 2d Echo- will likely need CLAY will need WBC scan to eval for AVF infection Bcx x2 Repeat COvid x2 ESR, CRP am DW RN Subjective Allergies: Coded Allergies: NO KNOWN ALLERGIES (Unverified Allergy, Unknown, 10/15/15) Subjective afebrile at RA no leukocytosis remains bateremic Objective Vital Signs Last 24 Hour Vital Signs Date Time Temp Pulse Resp B/P (MAP) Pulse Ox O2 Delivery O2 Flow Rate FiO2 03/22/20 12:00 97.8 79 19 115/58 (77) 92 03/22/20 10:30 98 118/63 03/22/20 09:00 Room Air 03/22/20 08:00 98.0 98 20 118/63 (81) 97 03/22/20 04:00 98.7 93 19 113/96 (102) 94 03/22/20 00:00 98.4 100 20 114/70 (85) 95 03/21/20 21:00 Room Air 03/21/20 20:00 98.0 106 20 109/72 (84) 95 Height (Feet): 5 Height (Inches): 7.00 Weight (Pounds): 213 Objective not seen to limit COVID19 exposure Microbiology Date/Time Source Procedure Growth Status 03/20/20 18:40 Blood Blood Culture - Preliminary NO GROWTH AFTER 24 HOURS Resulted 03/20/20 17:00 Blood Blood Culture - Preliminary NO GROWTH AFTER 24 HOURS Resulted Laboratory Tests Test 03/22/20 08:30 White Blood Count 10.1 K/UL (4.8-10.8) Red Blood Count 4.26 M/UL (4.20-5.40) Hemoglobin 10.3 G/DL (12.0-16.0) L Hematocrit 33.3 % (37.0-47.0) L Mean Corpuscular Volume 78 FL (80-99) L Mean Corpuscular Hemoglobin 24.1 PG (27.0-31.0) L Mean Corpuscular Hemoglobin Concent 30.8 G/DL (32.0-36.0) L Red Cell Distribution Width 18.0 % (11.6-14.8) H Platelet Count 205 K/UL (150-450) Mean Platelet Volume 6.1 FL (6.5-10.1) L Neutrophils (%) (Auto) 51.9 % (45.0-75.0) Lymphocytes (%) (Auto) 26.0 % (20.0-45.0) Monocytes (%) (Auto) 13.5 % (1.0-10.0) H Eosinophils (%) (Auto) 7.7 % (0.0-3.0) H Basophils (%) (Auto) 1.0 % (0.0-2.0) Sodium Level 138 MMOL/L (136-145) Potassium Level 4.6 MMOL/L (3.5-5.1) Chloride Level 98 MMOL/L (98-107) Carbon Dioxide Level 24 MMOL/L (21-32) Anion Gap 16 mmol/L (5-15) H Blood Urea Nitrogen 52 mg/dL (7-18) H Creatinine 10.0 MG/DL (0.55-1.30) H Estimat Glomerular Filtration Rate 4.7 mL/min (>60) Glucose Level 116 MG/DL (74-106) H Calcium Level 9.9 MG/DL (8.5-10.1) Phosphorus Level 4.8 MG/DL (2.5-4.9) Magnesium Level 2.9 MG/DL (1.8-2.4) H Current Medications Medications (Trade) Dose Ordered Sig/Josi Route PRN Reason Start Time Stop Time Status Last Admin Dose Admin Acetaminophen (Tylenol) 650 mg Q4H PRN GT fever 03/10/20 23:45 04/07/20 23:39 Albuterol/ Ipratropium (Combivent Respimat) 1 puff Q4H PRN INH Shortness of Breath 03/10/20 23:45 04/07/20 23:40 Amlodipine Besylate (Norvasc) 2.5 mg DAILY NG 03/12/20 09:00 04/11/20 08:59 03/22/20 10:30 Atorvastatin Calcium (Lipitor) 10 mg BEDTIME NG 03/11/20 21:00 05/25/20 20:59 03/21/20 22:10 Cefepime HCl 500 mg/Dextrose 55 ml @ 110 mls/hr Q24H IVPB 03/15/20 21:00 03/22/20 20:59 03/21/20 22:10 Chlorhexidine Gluconate (Jenny-Hex 2%) 1 applic DAILY@1999 TOPIC 03/14/20 20:00 06/12/20 19:59 03/19/20 22:50 Chlorhexidine Gluconate (Jenny-Hex 2%) 1 applic DAILY@1999 TOPIC 03/18/20 20:00 06/16/20 19:59 03/21/20 22:10 Epoetin Jose De Jesus (Epoetin Jose De Jesus(ESRD on dialysis)) 8,000 unit SUN-SUN-SUN SUBQ 03/15/20 21:00 06/13/20 20:59 03/19/20 21:00 Heparin Sodium (Porcine) (Heparin 5000 units/ml) 5,000 units EVERY 12 HOURS SUBQ 03/11/20 09:00 04/10/20 08:59 03/22/20 10:27 Insulin Aspart (NovoLOG) Q6HR SUBQ 03/11/20 00:00 05/20/20 12:29 03/22/20 05:48 Linezolid (Zyvox) 600 mg EVERY 12 HOURS ORAL 03/18/20 21:00 03/23/20 20:59 03/22/20 10:26 Lorazepam (Ativan) 1 mg Q6H PRN ORAL For Anxiety 03/21/20 21:30 03/28/20 21:29 03/22/20 10:26 Memantine (Namenda) 5 mg DAILY ORAL 03/22/20 09:00 04/21/20 08:59 03/22/20 10:32 Ondansetron HCl (Zofran) 4 mg Q6H PRN IVP Nausea & Vomiting 03/11/20 00:30 03/26/20 06:29 Pantoprazole (Protonix) 40 mg EVERY 12 HOURS ORAL 03/17/20 21:00 04/16/20 20:59 03/22/20 10:26 Pyridoxine HCl (Vitamin B6) 50 mg DAILY ORAL 03/18/20 09:00 04/17/20 08:59 03/22/20 10:26 Sevelamer Carbonate (Renvela) 1,600 mg TID NG 03/18/20 13:00 05/25/20 11:59 03/22/20 10:26 Thiamine HCl (Vitamin B1) 100 mg DAILY ORAL 03/18/20 09:00 04/17/20 08:59 03/22/20 10:26 Susi Vanegas M.D. Mar 22, 2020 13:50
--- NOTE | 2020-03-22 14:07 | NUR ---
NURSE NOTES:WOUND CARE FOLLOW-UP NOTES:pt wounds are resolving . Non-blanching erythema noted to sacrum. Darker skin tone without erythema, induration or fluctuance noted to R and L gluteal cheeks. Reabsorbed DTPI L heel. dry brown eschar without induration or fluctuance. L heel is boggy but blanchable. Pt continues to be resistive to being repositioned, removes pillows used for repositioning,and can be restless in bed. Staff continues to educate and reinforce repositioning to prevent Skin breakdown. Tx.Plan: Apply Moisture Barrier Paste to Sacrum. Cover with Optifoam drsg. Change every 3 days and prn. Apply Moisture Barrier to R and L gluteal cheeks and perineum with each incontinence care. Apply Cavilon Skin Barrier to both heels. Cover each heel with Optifoam drsg. Change every 7 days and prn. Reposition at least every 2hours or as tolerated. Off-load heels with pillow.
[2020-03-22 16:00] VITALS: BP 116/72
--- NOTE | 2020-03-22 17:30 | Cardiology Progress Note ---
Assessment/Plan Assessment/Plan 1. Respiratory failure. 2. History of obesity hypoventilation syndrome. 3. History of pulmonary hypertension previously. 4. Urinary tract infection. 5. covid 19 infection confimred 6. pneumonia. 7. History of bacteremia with Staph epi recently on 02/05/2020. 8. somnolence 9. Polymicrobial bacteremia i did not examine pt personally with confirmed covid 19 now off tele sat normal off oxygen no cough no diarrhea all labs reviewed wbc norml still no fever since 03/05 despite all the bacteremia !! dialysis yes covid neg from 03/11but + on 03/13 has different organism on different blood cx ?nwo bc neg for 24 hours Subjective Subjective more lucid per staff picc line Objective Last 24 Hour Vital Signs Date Time Temp Pulse Resp B/P (MAP) Pulse Ox O2 Delivery O2 Flow Rate FiO2 03/22/20 16:00 98.1 86 20 116/72 (87) 99 03/22/20 12:00 97.8 79 19 115/58 (77) 92 03/22/20 10:30 98 118/63 03/22/20 09:00 Room Air 03/22/20 08:00 98.0 98 20 118/63 (81) 97 03/22/20 04:00 98.7 93 19 113/96 (102) 94 03/22/20 00:00 98.4 100 20 114/70 (85) 95 03/21/20 21:00 Room Air 03/21/20 20:00 98.0 106 20 109/72 (84) 95 Intake and Output 03/21/20 03/22/20 19:00 07:00 Intake Total 200 ml 55 ml Balance 200 ml 55 ml Intake Oral 200 ml IV Total 55 ml # Voids 2 # Bowel Movements 1 Laboratory Tests Test 03/22/20 08:30 White Blood Count 10.1 K/UL (4.8-10.8) Red Blood Count 4.26 M/UL (4.20-5.40) Hemoglobin 10.3 G/DL (12.0-16.0) L Hematocrit 33.3 % (37.0-47.0) L Mean Corpuscular Volume 78 FL (80-99) L Mean Corpuscular Hemoglobin 24.1 PG (27.0-31.0) L Mean Corpuscular Hemoglobin Concent 30.8 G/DL (32.0-36.0) L Red Cell Distribution Width 18.0 % (11.6-14.8) H Platelet Count 205 K/UL (150-450) Mean Platelet Volume 6.1 FL (6.5-10.1) L Neutrophils (%) (Auto) 51.9 % (45.0-75.0) Lymphocytes (%) (Auto) 26.0 % (20.0-45.0) Monocytes (%) (Auto) 13.5 % (1.0-10.0) H Eosinophils (%) (Auto) 7.7 % (0.0-3.0) H Basophils (%) (Auto) 1.0 % (0.0-2.0) Sodium Level 138 MMOL/L (136-145) Potassium Level 4.6 MMOL/L (3.5-5.1) Chloride Level 98 MMOL/L (98-107) Carbon Dioxide Level 24 MMOL/L (21-32) Anion Gap 16 mmol/L (5-15) H Blood Urea Nitrogen 52 mg/dL (7-18) H Creatinine 10.0 MG/DL (0.55-1.30) H Estimat Glomerular Filtration Rate 4.7 mL/min (>60) Glucose Level 116 MG/DL (74-106) H Calcium Level 9.9 MG/DL (8.5-10.1) Phosphorus Level 4.8 MG/DL (2.5-4.9) Magnesium Level 2.9 MG/DL (1.8-2.4) H Microbiology Date/Time Source Procedure Growth Status 03/20/20 18:40 Blood Blood Culture - Preliminary NO GROWTH AFTER 24 HOURS Resulted 03/20/20 17:00 Blood Blood Culture - Preliminary NO GROWTH AFTER 24 HOURS Resulted Wilfredo Reyna MD Mar 22, 2020 17:30
--- NOTE | 2020-03-22 17:31 | NUR ---
NURSE NOTES: Covid swab sent to labs as ordered.
--- NOTE | 2020-03-22 17:32 | NUR ---
NURSE NOTES: Spoke with Carlitos from [facility] dialysis to confirm dialysis schedule for patient tomorrow 03/23. Carlitos says he will forward message to nurse Fry. Awaiting call back to confirm time.
--- NOTE | 2020-03-22 19:20 | NUR ---
NURSE NOTES: Report received from NATHALIA Yates. Pt awake, AAO x 3, on room air. Pt restless, trying to get out of bed. Pt has restraints in place. Noted mid line on left upper arm, patent and intact. AV shunt intact on MANISHA. Bed low and locked, siderails up x2, alarms on, call light within reach. will continue to monitor
--- NOTE | 2020-03-22 19:43 | NUR ---
HAND-OFF: Report given to Ange SLOAN.
--- NOTE | 2020-03-22 19:44 | Progress Note ---
DATE: 03/22/2020 SUBJECTIVE: This is a 64-year-old female patient who is admitted to the hospital. This patient has anemia of chronic renal disease, obesity, urinary tract infection. She has high levels of anxiety. She has altered mental status. That is why, attending has requested daily psychiatric consultation. MENTAL STATUS EXAMINATION: This is a 64-year-old female. Appearance is disheveled. Attitude, irritable and agitated. Affect, guarded and restricted. Intellect, poor. Mood, depressed and anxious. Motor activity, psychomotor agitation. Insight and judgment is poor. DIAGNOSIS: Major depressive disorder, mild, recurrent with psychotic features, rule out dementia with psychosis. PLAN: Treat her with Namenda 5 mg daily and also Ativan 1 mg every 6 hours p.r.n. anxiety and agitation. Twenty minutes of behavioral management provided. I encouraged the patient to interact appropriately with staff and other patients. Chart reviewed. Discussed with staff. Seen and assessed at the bedside. Iker Lawrence M.D. DR: DONNELL JOB#: [id number] CC:
[2020-03-22 20:00] VITALS: BP 99/56
[2020-03-22] MEDS: Cefepime HCl 500 MG in D5W 55 ML IVPB SCH (20:50)
[2020-03-22] MEDS: DAPTOMYCIN IV SCH ×2 (20:51→21:00)
[2020-03-22] MEDS: NS IV SCH ×2 (20:51→21:00)
[2020-03-22] MEDS: Dyna-Hex 2% Top Sol 2oz TOPIC SCH (20:51)
[2020-03-22] MEDS: Epoetin Alfa-EPBX(ESRD on dialysis)4000 units/ml vial SUBQ SCH (20:52)
--- NOTE | 2020-03-22 23:00 | NUR ---
NURSE NOTES: Spoke with Young [facility] HD nurse. Said she will come at night on 03/23
--- NOTE | 2020-03-22 23:00 | NUR ---
NURSE NOTES: Provided incontinent care and comfort measures for restraints.
--- NOTE | 2020-03-22 23:00 | NUR ---
NURSE NOTES: Midline is not working and occluded. Tried to insert peripheral IV many times but unable to get it. Addendum: 03/23/20 at 0652 by CHRISTINA MEJIAS RN RN NURSE NOTES: Left message to Dr. Henning and Chidi
[2020-03-23] VITALS: BP 120/60
[2020-03-23] MEDS: NovoLOG Insulin Flexpen SUBQ SCH ×5 (01:23→23:16)
--- NOTE | 2020-03-23 03:00 | NUR ---
NURSE NOTES: Provided incontinent care and comfort measures for restraints.
[2020-03-23 04:00] VITALS: BP 136/74
--- NOTE | 2020-03-23 06:00 | NUR ---
NURSE NOTES: Pt refused insulin. Explained benefits and refused but still refused x 3
--- NOTE | 2020-03-23 06:29 | Consultation ---
DATE OF CONSULTATION: HISTORY OF PRESENT ILLNESS: Tawny Frias is a 64-year-old female patient who came in from [facility]. The patient is admitted secondary to hypoxic respiratory failure and fever. She is lethargic and confused. She gets psychomotor agitation and that is why her attending has requested daily psychiatric consultation for this patient. She has low energy, poor appetite and loss of interest in activities. That is why she does require acute psychiatric inpatient treatment at this time. She needs medications for anxiety. She has activity. For that reason, the patient was seen and assessed. The patient was seen and assessed for anxiety, but she also has altered mental status. Her cognition has declined below baseline. The patient is a really poor historian. She is making nonsensical disorganized thought process. The patient did have some psychomotor agitation. PAST MEDICAL HISTORY: She has a history of respiratory failure, end-stage renal disease, obesity, hypertension, diabetes, and anemia. ALLERGIES: No known drug allergies. PSYCHOTROPIC MEDICATIONS ON ADMISSION: As far as this patient's psychotropic medication on admission, the patient is a poor historian, but apparently she has a history of taking Ativan as needed for anxiety due to psychomotor agitation. FAMILY/PSYCHIATRIC HISTORY: Denies. SUBSTANCE ABUSE HISTORY: No known history of any drug or alcohol use. PAIN ASSESSMENT: 02/02 pain. DEVELOPMENTAL PROBLEMS: Denies. SOCIAL HISTORY: She lives in [facility]. Financially supported by [employer] and Medicare. STRENGTHS: She is motivated to get better and has a place to live. WEAKNESSES: Impulsive, minimal support system. MENTAL STATUS EXAMINATION: The patient is a 64-year-old female patient. Appearance is disheveled. Attitude, irritable and agitated. Affect is flat. Intellect poor. She does not know current events and does not know last four presidents. Mood, depressed and anxious. Motor activity, psychomotor agitation. Attention span is poor because she cannot do serial sevens or spell world backwards. Orientation x2. She is oriented to person, place, not to time and situation. Speech is nonsensical. Thought process, disorganized and illogical. Thought content, paranoid delusions. Perception is poor because of paranoid delusions. Abstract reasoning is poor because she does not understand proverbs, only has concrete thinking. Insight is poor because she does not recognize to have psych disorder. Judgment is poor because she does not . Short-term memory, 3/3 recall, so poor short-term memory. Long-term memory is poor because she does not recall long-term events in her life such as high school that she went to. DIAGNOSES: 1. Paranoid schizophrenia with acute exacerbation. 2. Secondary medical, denies. 3. Psychosocial stressors, financial. 4. Functional impairment, severe. PLAN: Treatment of this patient with medication regimen consisting of Ativan 1 every 6 hours p.r.n. anxiety and agitation, and also Namenda 5 mg daily, 20 minutes of behavioral management provided. Plan is Ativan 1 every 6 hours daily and also Namenda 5 mg daily to prevent any further decline in her cognition. Chart reviewed. Discussed with staff. Seen and assessed at bedside. I would like to thank Dr. Roderick Henning for this consultation. I will be happy to follow this patient with you throughout her hospital course. Iker Lawrence M.D. DR: Steffi JOB#: [id number] CC:
--- NOTE | 2020-03-23 06:46 | General Progress Note ---
Assessment/Plan Status: unchanged Assessment/Plan: 1. Diabetes. 2. End-stage renal disease, on hemodialysis. 3. Chronic anemia. 4. Obesity. 5. Gastritis. 6. Kidney stones. 7. Abdominal hernia. 8. Hiatal hernia. 9. Cardiomegaly. 10. Hypercholesterolemia. 11. Hypertension. 12. Bilateral eye blindness. 13. Coronary artery disease and cardiac stent placement. 14. History of EtOH and cocaine abuse in the past. 15. Dysphagia abd CT reviewed COVID positive swallow eval appreciated on diet fu cardiology and Id recs HD per nephrology>>>pending for today fu labs recent labs and notes reviewed Subjective ROS Limited/Unobtainable: Yes Allergies: Coded Allergies: NO KNOWN ALLERGIES (Unverified Allergy, Unknown, 10/15/15) Objective Last 24 Hour Vital Signs Date Time Temp Pulse Resp B/P (MAP) Pulse Ox O2 Delivery O2 Flow Rate FiO2 03/23/20 04:00 97.5 81 21 136/74 (94) 99 03/23/20 00:00 98.4 80 19 120/60 (80) 92 03/22/20 21:00 Room Air 03/22/20 20:00 98.4 90 21 99/56 (70) 100 03/22/20 16:00 98.1 86 20 116/72 (87) 99 03/22/20 12:00 97.8 79 19 115/58 (77) 92 03/22/20 10:30 98 118/63 03/22/20 09:00 Room Air 03/22/20 08:00 98.0 98 20 118/63 (81) 97 Intake and Output 03/22/20 03/23/20 19:00 07:00 Intake Total 660 ml Output Total 0 ml Balance 660 ml 0 ml Intake Oral 660 ml Output Urine Total 0 ml Stool Total 0 ml # Voids 2 # Bowel Movements 1 Laboratory Tests 03/22/20 08:30: White Blood Count 10.1, Red Blood Count 4.26, Hemoglobin 10.3L, Hematocrit 33.3L , Mean Corpuscular Volume 78L, Mean Corpuscular Hemoglobin 24.1L, Mean Corpuscular Hemoglobin Concent 30.8L, Red Cell Distribution Width 18.0H, Platelet Count 205, Mean Platelet Volume 6.1L, Neutrophils (%) (Auto) 51.9, Lymphocytes (%) (Auto) 26.0, Monocytes (%) (Auto) 13.5H, Eosinophils (%) (Auto) 7.7H, Basophils (%) (Auto) 1.0, Sodium Level 138, Potassium Level 4.6, Chloride Level 98, Carbon Dioxide Level 24, Anion Gap 16H, Blood Urea Nitrogen 52H, Creatinine 10.0H, Estimat Glomerular Filtration Rate 4.7, Glucose Level 116H, Calcium Level 9.9, Phosphorus Level 4.8, Magnesium Level 2.9H Height (Feet): 5 Height (Inches): 7.00 Weight (Pounds): 210 Jamison Garcia MD Mar 23, 2020 06:46
--- NOTE | 2020-03-23 07:59 | NUR ---
NURSE NOTES: Received order from Dr. Murillo for PICC line
[2020-03-23 08:00] VITALS: BP 142/96
[2020-03-23] MEDS ORDERED: Heparin1,000 units/500ml Premix(Conc:2 units/ml) IV SCH (08:00)
--- NOTE | 2020-03-23 08:00 | NUR ---
HAND-OFF: Report given to NATHALIA Lion.
[2020-03-23 08:36] LABS: BASOPHILS % (AUTO) 1.1 % (0.0-2.0); EOSINOPHILS % (AUTO) 9.7 % (0.0-3.0); HEMATOCRIT 33.7 % (37.0-47.0); HEMOGLOBIN 10.4 G/DL (12.0-16.0); LYMPHOCYTES % (AUTO) 24.1 % (20.0-45.0); MEAN CORPUSCULAR VOLUME 79 FL (80-99); MONOCYTES % (AUTO) 11.4 % (1.0-10.0); NEUTROPHILS % (AUTO) 53.6 % (45.0-75.0); PLATELET COUNT 250 K/UL (150-450); RED BLOOD COUNT 4.29 M/UL (4.20-5.40); RED CELL DISTRIBUTION WIDTH 18.5 % (11.6-14.8); WHITE BLOOD COUNT 9.6 K/UL (4.8-10.8)
[2020-03-23 08:52] LABS: ANION GAP 14 mmol/L (5-15); BLOOD UREA NITROGEN 57 mg/dL (7-18); CALCIUM 9.3 MG/DL (8.5-10.1); CARBON DIOXIDE 25 MMOL/L (21-32); CHLORIDE 97 MMOL/L (98-107); CREATININE 10.6 MG/DL (0.55-1.30); POTASSIUM 4.7 MMOL/L (3.5-5.1); SODIUM 136 MMOL/L (136-145)
[2020-03-23] MEDS: Renvela 800mg Pkt NG SCH ×3 (10:00→18:14)
[2020-03-23] MEDS: Memantine 5 MG TAB ORAL SCH (10:00)
[2020-03-23] MEDS: Heparin 5000 units/ml inj SUBQ SCH ×2 (10:01→21:00)
[2020-03-23] MEDS: LORazepam 1mg tab ORAL PRN (10:01)
[2020-03-23] MEDS: Pyridoxine 50mg tab ORAL SCH (10:01)
[2020-03-23] MEDS: Thiamine 100mg tab ORAL SCH (10:01)
--- NOTE | 2020-03-23 11:20 | NUR ---
DISCHARGE PLANNING CALL RECEIVED FROM JACOB AT [facility] TO PROVIDE DIALYSIS CENTER INFORMATION. STATES PATIENT RECEIVED HD AT [facility]. INFORMED THIS CM SHE CONFIRMED WITH HD CENTER WHO ADVISED TO CONTACT CONTACT CENTRAL ADMISSIONS AT [phone] CALL MADE TO [facility] ADMISSIONS. S/W MARQUEZ WHO OBTAINED PATIENT INFORMATION TO REFER FOR SERVICE FOR COVID+ PATIENTS. PROVIDED CONTACT INFO FOR [facility] [phone] EXT [phone] FOR FOLLOW UP WITH SERVICE. WILL FOLLOW UP. Addendum: 03/23/20 at 1431 by JHONNY BETTS LVN LVN FOLLOW UP CALL MADE TO JOAN AT [facility] [phone] JOAN REQUESTS LABS FOR TODAYS DATE. LABS FAXED TO [phone] IGGY FRANCO. WILL MAKE 2ND FOLLOW UP TO CONFIRM RECEIPT AND HD CENTER INFO THAT IS ABLE TO ACCOMMODATE THIS PATIENT.
[2020-03-23 12:00] VITALS: BP 144/92
--- NOTE | 2020-03-23 12:41 | General Progress Note ---
Assessment/Plan Problem List: (1) Obesity (BMI 30-39.9) ICD Codes: E66.9 - Obesity, unspecified SNOMED: 169861211, 530709206 (2) COVID-19 virus infection ICD Codes: U07.1 - COVID-19 SNOMED: 904321274 (3) Acute respiratory failure ICD Codes: J96.00 - Acute respiratory failure, unspecified whether with hypoxia or hypercapnia SNOMED: 99146818 (4) Blindness of both eyes ICD Codes: H54.0 - Blindness SNOMED: 448900208 (5) ESRD (end stage renal disease) on dialysis ICD Codes: N18.6 - End stage renal disease; Z99.2 - Dependence on renal dialysis SNOMED: 806591514 (6) Anemia ICD Codes: D64.9 - Anemia, unspecified SNOMED: 823740815 (7) Diabetes ICD Codes: E11.9 - Type 2 diabetes mellitus without complications SNOMED: 71572646 (8) AMS (altered mental status) ICD Codes: R41.82 - Altered mental status, unspecified SNOMED: 809140975 Status: unchanged Assessment/Plan: vent abx dialysis cbc bmp am ltach eval Subjective Constitutional: Reports: weakness Allergies: Coded Allergies: NO KNOWN ALLERGIES (Unverified Allergy, Unknown, 10/15/15) All Systems: reviewed and negative except above Subjective lethargic sleepy Objective Last 24 Hour Vital Signs Date Time Temp Pulse Resp B/P (MAP) Pulse Ox O2 Delivery O2 Flow Rate FiO2 03/23/20 09:59 85 142/96 03/23/20 09:00 Room Air 03/23/20 08:00 96.8 85 20 142/96 (111) 100 03/23/20 04:00 97.5 81 21 136/74 (94) 99 03/23/20 00:00 98.4 80 19 120/60 (80) 92 03/22/20 21:00 Room Air 03/22/20 20:00 98.4 90 21 99/56 (70) 100 03/22/20 16:00 98.1 86 20 116/72 (87) 99 Intake and Output 03/22/20 03/23/20 19:00 07:00 Intake Total 660 ml Output Total 0 ml Balance 660 ml 0 ml Intake Oral 660 ml Output Urine Total 0 ml Stool Total 0 ml # Voids 2 # Bowel Movements 1 Laboratory Tests 03/23/20 08:20: White Blood Count 9.6, Red Blood Count 4.29, Hemoglobin 10.4L, Hematocrit 33.7L , Mean Corpuscular Volume 79L, Mean Corpuscular Hemoglobin 24.3L, Mean Corpuscular Hemoglobin Concent 30.9L, Red Cell Distribution Width 18.5H, Platelet Count 250, Mean Platelet Volume 6.1L, Neutrophils (%) (Auto) 53.6, Lymphocytes (%) (Auto) 24.1, Monocytes (%) (Auto) 11.4H, Eosinophils (%) (Auto) 9.7H, Basophils (%) (Auto) 1.1, Sodium Level 136, Potassium Level 4.7, Chloride Level 97L, Carbon Dioxide Level 25, Anion Gap 14, Blood Urea Nitrogen 57H, Creatinine 10.6H, Estimat Glomerular Filtration Rate 4.5, Glucose Level 128H, Calcium Level 9.3 Height (Feet): 5 Height (Inches): 7.00 Weight (Pounds): 210 General Appearance: lethargic EENT: normal ENT inspection Neck: normal alignment Cardiovascular: normal rate, regular rhythm Respiratory/Chest: no respiratory distress, no accessory muscle use Extremities: normal inspection Skin: normal pigmentation Roderick Henning DO Mar 23, 2020 12:41
--- NOTE | 2020-03-23 12:51 | Pulmonology Progress Note ---
Assessment/Plan Problems: (1) Acute respiratory failure Assessment & Plan: extubated now (2) Bacteremia (3) COVID-19 virus infection (4) Accelerated hypertension (5) Sepsis (6) At high risk for aspiration (7) ESRD (end stage renal disease) on dialysis (8) Diabetes (9) Patient is Amish (10) Morbid obesity Assessment/Plan still confused BC still positive still confused, off NG tube swallow study done, will need Barium swallow, on renal diet for now on isolation afebrile in the last few days f/u cultures respiratory treatment Subjective ROS Limited/Unobtainable: No Constitutional: Reports: no symptoms HEENT: Repors: no symptoms Respiratory: Reports: no symptoms Allergies: Coded Allergies: NO KNOWN ALLERGIES (Unverified Allergy, Unknown, 10/15/15) All Systems: reviewed and negative except above Objective Last 24 Hour Vital Signs Date Time Temp Pulse Resp B/P (MAP) Pulse Ox O2 Delivery O2 Flow Rate FiO2 03/23/20 09:59 85 142/96 03/23/20 09:00 Room Air 03/23/20 08:00 96.8 85 20 142/96 (111) 100 03/23/20 04:00 97.5 81 21 136/74 (94) 99 03/23/20 00:00 98.4 80 19 120/60 (80) 92 03/22/20 21:00 Room Air 03/22/20 20:00 98.4 90 21 99/56 (70) 100 03/22/20 16:00 98.1 86 20 116/72 (87) 99 Intake and Output 03/22/20 03/23/20 19:00 07:00 Intake Total 660 ml Output Total 0 ml Balance 660 ml 0 ml Intake Oral 660 ml Output Urine Total 0 ml Stool Total 0 ml # Voids 2 # Bowel Movements 1 Objective swallow study done, results reviewed General Appearance: WD/WN, other - morbidly obese AA female HEENT: normocephalic, atraumatic Respiratory/Chest: chest wall non-tender, normal breath sounds Cardiovascular: normal peripheral pulses, normal rate, other - LUE PICC intact Abdomen: normal bowel sounds, soft, non tender Genitourinary: normal external genitalia Extremities: no clubbing, other - trace edema BLE, RUE AV shunt + bruit/thrill Skin: no rash Microbiology Date/Time Source Procedure Growth Status 03/20/20 18:40 Blood Blood Culture - Preliminary Resulted 03/20/20 17:00 Blood Blood Culture - Preliminary NO GROWTH AFTER 48 HOURS Resulted Laboratory Tests 03/23/20 08:20: White Blood Count 9.6, Red Blood Count 4.29, Hemoglobin 10.4L, Hematocrit 33.7L , Mean Corpuscular Volume 79L, Mean Corpuscular Hemoglobin 24.3L, Mean Corpuscular Hemoglobin Concent 30.9L, Red Cell Distribution Width 18.5H, Platelet Count 250, Mean Platelet Volume 6.1L, Neutrophils (%) (Auto) 53.6, Lymphocytes (%) (Auto) 24.1, Monocytes (%) (Auto) 11.4H, Eosinophils (%) (Auto) 9.7H, Basophils (%) (Auto) 1.1, Sodium Level 136, Potassium Level 4.7, Chloride Level 97L, Carbon Dioxide Level 25, Anion Gap 14, Blood Urea Nitrogen 57H, Creatinine 10.6H, Estimat Glomerular Filtration Rate 4.5, Glucose Level 128H, Calcium Level 9.3 Current Medications Medications (Trade) Dose Ordered Sig/Josi Route PRN Reason Start Time Stop Time Status Last Admin Dose Admin Acetaminophen (Tylenol) 650 mg Q4H PRN GT fever 03/10/20 23:45 04/07/20 23:39 Albuterol/ Ipratropium (Combivent Respimat) 1 puff Q4H PRN INH Shortness of Breath 03/10/20 23:45 04/07/20 23:40 Amlodipine Besylate (Norvasc) 2.5 mg DAILY NG 03/12/20 09:00 04/11/20 08:59 03/22/20 10:30 Atorvastatin Calcium (Lipitor) 10 mg BEDTIME NG 03/11/20 21:00 05/25/20 20:59 03/22/20 20:50 Cefepime HCl 500 mg/Dextrose 55 ml @ 110 mls/hr Q24H IVPB 03/15/20 21:00 03/26/20 23:59 03/22/20 20:50 Chlorhexidine Gluconate (Jenny-Hex 2%) 1 applic DAILY@2000 TOPIC 03/18/20 20:00 06/16/20 19:59 03/22/20 20:51 Chlorhexidine Gluconate (Jenny-Hex 2%) 1 applic DAILY@2000 TOPIC 03/23/20 20:00 06/21/20 19:59 Daptomycin 800 mg/ Sodium Chloride 55 ml @ 100 mls/hr Q48H IV 03/22/20 20:00 03/29/20 19:59 Epoetin Jose De Jesus (Epoetin Jose De Jesus(ESRD on dialysis)) 8,000 unit SUN-SUN-SUN SUBQ 03/15/20 21:00 06/13/20 20:59 03/22/20 20:52 Heparin Sodium (Porcine) (Heparin 5000 units/ml) 5,000 units EVERY 12 HOURS SUBQ 03/11/20 09:00 04/10/20 08:59 03/22/20 20:52 Heparin Sodium/ Sodium Chloride (Heparin 1000 units/500ml Premix) 1,000 unit ONCE IV 03/23/20 08:00 03/23/20 18:00 Insulin Aspart (NovoLOG) Q6HR SUBQ 03/11/20 00:00 05/20/20 12:29 03/23/20 01:23 Linezolid (Zyvox) 600 mg EVERY 12 HOURS ORAL 03/18/20 21:00 03/29/20 19:59 03/23/20 10:01 Lorazepam (Ativan) 1 mg Q6H PRN ORAL For Anxiety 03/21/20 21:30 03/28/20 21:29 03/23/20 10:01 Memantine (Namenda) 5 mg DAILY ORAL 03/22/20 09:00 04/21/20 08:59 03/23/20 10:00 Ondansetron HCl (Zofran) 4 mg Q6H PRN IVP Nausea & Vomiting 03/11/20 00:30 03/26/20 06:29 Pantoprazole (Protonix) 40 mg EVERY 12 HOURS ORAL 03/17/20 21:00 04/16/20 20:59 03/23/20 10:01 Pyridoxine HCl (Vitamin B6) 50 mg DAILY ORAL 03/18/20 09:00 04/17/20 08:59 03/23/20 10:01 Sevelamer Carbonate (Renvela) 1,600 mg TID NG 03/18/20 13:00 05/25/20 11:59 03/23/20 10:00 Thiamine HCl (Vitamin B1) 100 mg DAILY ORAL 03/18/20 09:00 04/17/20 08:59 03/23/20 10:01 Meghana Murillo MD Mar 23, 2020 12:51
[2020-03-23] MEDS ORDERED: HYDROcodone/Acetamin 10/325 tab ORAL PRN (12:57)
--- NOTE | 2020-03-23 13:17 | NUR ---
CASE MANAGEMENT:REVIEW 03/22/2020 SI;SEPSIS. ACUTE RESPIRATORY FAILURE. ESRD ON HD. COVID-19 INFECTION (03/13/20 DETECTED) 98.1 90 21 99/59 92% ON RA BUN 52 CR 10 MG 2.9 IS;CEFEPIME IV QD ZYVOX PO BID VIT B6 PO QD VIT B1 PO QD PROTONIX PO QD MED SURG STATUS DCP;FROM [facility]
[2020-03-23] MEDS: HYDROcodone/Acetamin 10/325 tab GT PRN ×2 (13:50→23:17)
--- NOTE | 2020-03-23 14:00 | NUR ---
NURSE NOTES: RN SPOKE TO ED IN RADIOLOGY REGARDING NEW ORDER FOR PICC LINE DUE TO MID-LINE BEING OCCLUDED. PER ED, THEY ARE UNSURE IF THEY WOULD BE ABLE TO INSERT A PICC LINE AGAIN. DR BARAKAT AT NURSE'S STATION AND MADE AWARE OF RADIOLOGY AND PICC LINE. NO NEW ORDERS GIVEN.
--- NOTE | 2020-03-23 14:01 | Cardiology Progress Note ---
Assessment/Plan Assessment/Plan 1. Respiratory failure. 2. History of obesity hypoventilation syndrome. 3. History of pulmonary hypertension previously. 4. Urinary tract infection. 5. covid 19 infection confimred 6. pneumonia. 7. History of bacteremia with Staph epi recently on 02/05/2020. 8. somnolence 9. Polymicrobial bacteremia i did not examine pt personally with confirmed covid 19 sat normal off oxygen no cough no diarrhea all labs reviewed wbc normal still no fever since 03/05 despite all the bacteremia !! dialysis yes covid neg from 03/11 + on 03/13 has different organism on different blood cx eugenie still remain + need wbc scan for avf eval per id will check covid status again q12 x2 if neg will check echo Subjective Subjective refused insulin Objective Last 24 Hour Vital Signs Date Time Temp Pulse Resp B/P (MAP) Pulse Ox O2 Delivery O2 Flow Rate FiO2 03/23/20 12:00 97.2 88 20 144/92 (109) 96 03/23/20 09:59 85 142/96 03/23/20 09:00 Room Air 03/23/20 08:00 96.8 85 20 142/96 (111) 100 03/23/20 04:00 97.5 81 21 136/74 (94) 99 03/23/20 00:00 98.4 80 19 120/60 (80) 92 03/22/20 21:00 Room Air 03/22/20 20:00 98.4 90 21 99/56 (70) 100 03/22/20 16:00 98.1 86 20 116/72 (87) 99 Intake and Output 03/22/20 03/23/20 19:00 07:00 Intake Total 660 ml Output Total 0 ml Balance 660 ml 0 ml Intake Oral 660 ml Output Urine Total 0 ml Stool Total 0 ml # Voids 2 # Bowel Movements 1 Laboratory Tests Test 03/23/20 08:20 White Blood Count 9.6 K/UL (4.8-10.8) Red Blood Count 4.29 M/UL (4.20-5.40) Hemoglobin 10.4 G/DL (12.0-16.0) L Hematocrit 33.7 % (37.0-47.0) L Mean Corpuscular Volume 79 FL (80-99) L Mean Corpuscular Hemoglobin 24.3 PG (27.0-31.0) L Mean Corpuscular Hemoglobin Concent 30.9 G/DL (32.0-36.0) L Red Cell Distribution Width 18.5 % (11.6-14.8) H Platelet Count 250 K/UL (150-450) Mean Platelet Volume 6.1 FL (6.5-10.1) L Neutrophils (%) (Auto) 53.6 % (45.0-75.0) Lymphocytes (%) (Auto) 24.1 % (20.0-45.0) Monocytes (%) (Auto) 11.4 % (1.0-10.0) H Eosinophils (%) (Auto) 9.7 % (0.0-3.0) H Basophils (%) (Auto) 1.1 % (0.0-2.0) Sodium Level 136 MMOL/L (136-145) Potassium Level 4.7 MMOL/L (3.5-5.1) Chloride Level 97 MMOL/L (98-107) L Carbon Dioxide Level 25 MMOL/L (21-32) Anion Gap 14 mmol/L (5-15) Blood Urea Nitrogen 57 mg/dL (7-18) H Creatinine 10.6 MG/DL (0.55-1.30) H Estimat Glomerular Filtration Rate 4.5 mL/min (>60) Glucose Level 128 MG/DL (74-106) H Calcium Level 9.3 MG/DL (8.5-10.1) Microbiology Date/Time Source Procedure Growth Status 03/20/20 18:40 Blood Blood Culture - Preliminary Resulted 03/20/20 17:00 Blood Blood Culture - Preliminary NO GROWTH AFTER 48 HOURS Resulted Wilfredo Reyna MD Mar 23, 2020 14:01
--- NOTE | 2020-03-23 14:41 | Nephrology Progress Note ---
Assessment/Plan Problem List: (1) Acute respiratory failure (2) ESRD (end stage renal disease) on dialysis (3) UTI (urinary tract infection) (4) Patient is Confucianism (5) Pacemaker (6) Diabetes (7) Obesity (BMI 30-39.9) Assessment ARDS (adult respiratory distress syndrome) Fever Sepsis UTI (urinary tract infection) Respiratory failure, intubated on ventilator Thrombocytopenia Lymphopenia End stage renal disease on dialysis. Has a right upper arm dialysis fistula as Acces . Getting dialysis Sunday. morbid obesity Anemia / Jehova's witness CAD previous stent HTN- hypertensive urgency upon arrival to [facility]. s/p AVG DM 2 bilateral eye blindness h/o CHF Pacemaker Plan NG tube is out not takes p.o., will change all IV medication to p.o. Patient extubated March 04, and remains extubated, now in MedSurg floor Patient positive for Covid 19 Per ID and pulmonary, Last dialyzed March 20 next dialysis March 23 EPO, thiamin and b6 Phos binders NGT feeding per consultants Remains full code at this time Subjective ROS Limited/Unobtainable: No Constitutional: Reports: malaise, weakness Objective Objective Last 24 Hour Vital Signs Date Time Temp Pulse Resp B/P (MAP) Pulse Ox O2 Delivery O2 Flow Rate FiO2 03/23/20 12:00 97.2 88 20 144/92 (109) 96 03/23/20 09:59 85 142/96 03/23/20 09:00 Room Air 03/23/20 08:00 96.8 85 20 142/96 (111) 100 03/23/20 04:00 97.5 81 21 136/74 (94) 99 03/23/20 00:00 98.4 80 19 120/60 (80) 92 03/22/20 21:00 Room Air 03/22/20 20:00 98.4 90 21 99/56 (70) 100 03/22/20 16:00 98.1 86 20 116/72 (87) 99 Intake and Output 03/22/20 03/23/20 19:00 07:00 Intake Total 660 ml Output Total 0 ml Balance 660 ml 0 ml Intake Oral 660 ml Output Urine Total 0 ml Stool Total 0 ml # Voids 2 # Bowel Movements 1 Laboratory Tests 03/23/20 08:20: White Blood Count 9.6, Red Blood Count 4.29, Hemoglobin 10.4L, Hematocrit 33.7L , Mean Corpuscular Volume 79L, Mean Corpuscular Hemoglobin 24.3L, Mean Corpuscular Hemoglobin Concent 30.9L, Red Cell Distribution Width 18.5H, Platelet Count 250, Mean Platelet Volume 6.1L, Neutrophils (%) (Auto) 53.6, Lymphocytes (%) (Auto) 24.1, Monocytes (%) (Auto) 11.4H, Eosinophils (%) (Auto) 9.7H, Basophils (%) (Auto) 1.1, Sodium Level 136, Potassium Level 4.7, Chloride Level 97L, Carbon Dioxide Level 25, Anion Gap 14, Blood Urea Nitrogen 57H, Creatinine 10.6H, Estimat Glomerular Filtration Rate 4.5, Glucose Level 128H, Calcium Level 9.3 Height (Feet): 5 Height (Inches): 7.00 Weight (Pounds): 210 General Appearance: no apparent distress, lethargic Cardiovascular: tachycardia Respiratory/Chest: decreased breath sounds Abdomen: soft Objective No change Bryan Hunter MD Mar 23, 2020 14:41
--- NOTE | 2020-03-23 15:55 | NUR ---
NURSE NOTES: PT IS ALERT AND ORIENTED, ABLE TO CONVERSATE WITH RN. PT REQUESTS TO HAVE RESTRAINTS TAKEN OFF. PT STATES "I'M NOT GONNA WALK ON MY OWN. I PROMISE I WILL CALL YOU.". RN ASKED WHAT PT WILL DO IF A STAFF MEMBER CANNOT COME AND ATTEND TO PT'S NEED WHEN SHE CALLS. PT RESPONDED "ALL I NEED IS A BEDPAN NEAR ME. I WON'T TRY TO WALK ON MY OWN IF I NEED TO HAVE A BOWEL MOVEMENT". RN RELEASED RESTRAINTS. RN PLACED BEDPAN CLOSE TO PT AND MADE AWARE WHERE SHE CAN REACH THE BEDPAN AND CALL LIGHT. PT VERBALIZED UNDERSTANDING ON HOW TO USE CALL LIGHT. PT IS BLIND AND RN ATTACHED GAUZE OVER CALL LIGHT SO PT CAN FEEL WHERE THE BUTTON IS. PT ABLE TO DEMONSTRATE HOW TO USE CALL LIGHT. IN NO APPARENT DISTRESS AT THIS TIME. RN MADE DR BARAKAT AWARE PT'S LEFT ARM MID-LINE IS OCCLUDED WITH ORDER TO D/C MIDLINE CATH. RN DISCONTINUED MID-LINE, WITH TIP OF CATHETER INTACT. RN SPOKE TO PT'S SON, JENNIFER SINGER OVER THE PHONE AND MADE AWARE OF NEW ORDERS TO RE-INSERT PICC LINE AND NM INDIUM SCAN. PER JENNIFER, HE AGREES TO BOTH PROCEDURES. CONSENTS SIGNED AND PLACED IN CHART. BED IN LOWEST POSITION WITH BEDSIDE RAILS X3 RAISED. BED ALARM ON. WILL CONTINUE TO MONITOR.
[2020-03-23 16:00] VITALS: BP 140/74
[2020-03-23] MEDS ORDERED: DAPTOMYCIN IV SCH (18:00)
[2020-03-23] MEDS ORDERED: NS IV SCH (18:00)
--- NOTE | 2020-03-23 18:00 | NUR ---
NURSE NOTES: PT ABLE TO USE CALL LIGHT FOR ANY ASSISTANCE. IN NO APPARENT DISTRESS. PT ABLE TO VERBALIZE NEEDS TO STAFF. CALM AND RESTING IN BED.
--- NOTE | 2020-03-23 19:20 | NUR ---
HAND-OFF: Report given to Oidlon RINCON RN.
--- NOTE | 2020-03-23 19:40 | NUR ---
NURSE NOTES: Report received from Ayad SLOAN. Patient is awake and alert x 4. Patient noted to have 24 maria dolores IV in left ac saline lock. Patient noted to be on room air and has no complaints of chest pain or shortness of breath. Endorsed to Sj SLOAN that patient had midline removed today due to it being clogged. Endorsed to Sj SLOAN that orders for PICC line has been placed, consent has been obtained and in chart. Endorsed to Sj SLOAN that patient is due to have dialysis tonight and that blood pressure medications and heparin are to be held per Ayad SLOAN. Patient noted to no longer be on restraints. Patient able to verbalize that patient will call when need to use bathroom. Patient verbalized will not get up alone. Call light in reach. bed in lowest position, locked, alarmed. Patient on droplet precautions due to positive covid 19 testing. Will continue to follow plan of care.
[2020-03-23 20:00] VITALS: BP 110/61
[2020-03-23] MEDS: Dyna-Hex 2% Top Sol 2oz TOPIC SCH (20:00)
[2020-03-23] MEDS: Cefepime HCl 500 MG in D5W 55 ML IVPB SCH (21:27)
--- NOTE | 2020-03-23 22:45 | Progress Note ---
DATE: 03/23/2020 SUBJECTIVE: This is a 64-year-old female patient with respiratory insufficiency. She has some depression, confusion, and decline in cognition below baseline. That is why her attending physician has requested daily psychiatric consultation. She has high levels of anxiety and mood lability, also altered mental status. DIAGNOSIS: Major depressive disorder, mild, recurrent with psychotic features, rule out generalized anxiety disorder, rule out dementia with psychosis. PLAN: Ativan 1 mg every 6 hours p.r.n. anxiety, agitation and continue treatment with regimen of medication to stabilize her mood such as Namenda. Twenty minutes of insight-oriented psychotherapy. I encouraged the patient to interact appropriately with staff and other patients. Twenty minutes of behavioral management provided. Chart reviewed. Discussed with staff. Seen and assessed at the bedside. Iker Lawrence M.D. DR: Steffi JOB#: [id number] CC:
[2020-03-24] VITALS: BP 115/58
[2020-03-24 04:00] VITALS: BP 100/64
[2020-03-24] MEDS: NovoLOG Insulin Flexpen SUBQ SCH ×4 (06:00→23:31)
[2020-03-24 07:17] LABS: BASOPHILS % (AUTO) 0.9 % (0.0-2.0); EOSINOPHILS % (AUTO) 9.7 % (0.0-3.0); HEMATOCRIT 33.8 % (37.0-47.0); HEMOGLOBIN 10.5 G/DL (12.0-16.0); LYMPHOCYTES % (AUTO) 26.2 % (20.0-45.0); MEAN CORPUSCULAR VOLUME 78 FL (80-99); MONOCYTES % (AUTO) 11.4 % (1.0-10.0); NEUTROPHILS % (AUTO) 51.9 % (45.0-75.0); PLATELET COUNT 210 K/UL (150-450); RED BLOOD COUNT 4.36 M/UL (4.20-5.40); RED CELL DISTRIBUTION WIDTH 18.3 % (11.6-14.8); WHITE BLOOD COUNT 7.4 K/UL (4.8-10.8)
[2020-03-24 07:24] LABS: ANION GAP 16 mmol/L (5-15); BLOOD UREA NITROGEN 47 mg/dL (7-18); CALCIUM 9.9 MG/DL (8.5-10.1); CARBON DIOXIDE 25 MMOL/L (21-32); CHLORIDE 96 MMOL/L (98-107); CREATININE 8.7 MG/DL (0.55-1.30); POTASSIUM 4.3 MMOL/L (3.5-5.1); SODIUM 137 MMOL/L (136-145)
--- NOTE | 2020-03-24 07:45 | NUR ---
NURSE NOTES: Report received from Sj SLOAN. Patient awake and alert x 4. Patient on room air , no SOB noted. Endorsed that PICC line will be placed, consent has been obtained and in chart. Right AV fistula covered with dressing clean and intact. no bleeding noted. Reinforced using call light when pt need assistance. Pt verbalized understanding. Call light in reach. bed in lowest position, locked, alarmed. Patient on droplet precautions due to positive covid 19 testing. Will continue to follow plan of care.
--- NOTE | 2020-03-24 07:52 | NUR ---
HAND-OFF: Report given to Morgan SLOAN.
[2020-03-24 08:00] VITALS: BP 102/60
--- NOTE | 2020-03-24 08:39 | General Progress Note ---
Assessment/Plan Problem List: (1) Obesity (BMI 30-39.9) ICD Codes: E66.9 - Obesity, unspecified SNOMED: 032336817, 118148453 (2) COVID-19 virus infection ICD Codes: U07.1 - COVID-19 SNOMED: 401501198 (3) Acute respiratory failure ICD Codes: J96.00 - Acute respiratory failure, unspecified whether with hypoxia or hypercapnia SNOMED: 46509920 (4) Blindness of both eyes ICD Codes: H54.0 - Blindness SNOMED: 316633981 (5) ESRD (end stage renal disease) on dialysis ICD Codes: N18.6 - End stage renal disease; Z99.2 - Dependence on renal dialysis SNOMED: 592148108 (6) Anemia ICD Codes: D64.9 - Anemia, unspecified SNOMED: 646564896 (7) Diabetes ICD Codes: E11.9 - Type 2 diabetes mellitus without complications SNOMED: 56431422 (8) AMS (altered mental status) ICD Codes: R41.82 - Altered mental status, unspecified SNOMED: 244754733 Status: unchanged Assessment/Plan: vent abx dialysis cbc bmp am ltach eval Subjective Constitutional: Reports: weakness Allergies: Coded Allergies: NO KNOWN ALLERGIES (Unverified Allergy, Unknown, 10/15/15) All Systems: reviewed and negative except above Subjective lethargic sleepy Objective Last 24 Hour Vital Signs Date Time Temp Pulse Resp B/P (MAP) Pulse Ox O2 Delivery O2 Flow Rate FiO2 03/24/20 04:00 97.9 79 20 100/64 (76) 94 03/24/20 00:00 97.8 90 19 115/58 (77) 95 03/23/20 21:00 Room Air 03/23/20 20:00 98.1 83 17 110/61 (77) 95 03/23/20 16:00 98.0 86 20 140/74 (96) 98 03/23/20 12:00 97.2 88 20 144/92 (109) 96 03/23/20 09:59 85 142/96 03/23/20 09:00 Room Air Intake and Output 03/23/20 03/24/20 19:00 07:00 Intake Total 800 ml 415 ml Balance 800 ml 415 ml Intake Oral 800 ml 360 ml IV Total 55 ml # Voids 2 # Bowel Movements 3 2 Laboratory Tests 03/24/20 04:59: White Blood Count 7.4, Red Blood Count 4.36, Hemoglobin 10.5L, Hematocrit 33.8L , Mean Corpuscular Volume 78L, Mean Corpuscular Hemoglobin 24.1L, Mean Corpuscular Hemoglobin Concent 31.1L, Red Cell Distribution Width 18.3H, Platelet Count 210, Mean Platelet Volume 6.4L, Neutrophils (%) (Auto) 51.9, Lymphocytes (%) (Auto) 26.2, Monocytes (%) (Auto) 11.4H, Eosinophils (%) (Auto) 9.7H, Basophils (%) (Auto) 0.9, Erythrocyte Sedimentation Rate [Pending], Sodium Level 137, Potassium Level 4.3, Chloride Level 96L, Carbon Dioxide Level 25, Anion Gap 16H, Blood Urea Nitrogen 47H, Creatinine 8.7H, Estimat Glomerular Filtration Rate 5.6, Glucose Level 150H, Calcium Level 9.9, C-Reactive Protein, Quantitative < 0.4 Height (Feet): 5 Height (Inches): 7.00 Weight (Pounds): 210 General Appearance: lethargic EENT: normal ENT inspection Neck: normal alignment Cardiovascular: normal rate, regular rhythm Respiratory/Chest: no respiratory distress, no accessory muscle use Extremities: normal inspection Edema: no edema noted Arm (L), no edema noted Arm (R), no edema noted Leg (L), no edema noted Leg (R), no edema noted Pedal (L), no edema noted Pedal (R), no edema noted Generalized Skin: normal pigmentation Roderick Henning DO Mar 24, 2020 08:39
[2020-03-24] MEDS: Renvela 800mg Pkt NG SCH ×3 (09:00→18:08)
[2020-03-24] MEDS: Heparin 5000 units/ml inj SUBQ SCH ×2 (09:00→23:31)
[2020-03-24] MEDS: Thiamine 100mg tab ORAL SCH (09:00)
[2020-03-24] MEDS: Pyridoxine 50mg tab ORAL SCH (09:00)
[2020-03-24] MEDS: Memantine 5 MG TAB ORAL SCH (09:00)
--- NOTE | 2020-03-24 09:25 | General Progress Note ---
Assessment/Plan Status: unchanged Assessment/Plan: 1. Diabetes. 2. End-stage renal disease, on hemodialysis. 3. Chronic anemia. 4. Obesity. 5. Gastritis. 6. Kidney stones. 7. Abdominal hernia. 8. Hiatal hernia. 9. Cardiomegaly. 10. Hypercholesterolemia. 11. Hypertension. 12. Bilateral eye blindness. 13. Coronary artery disease and cardiac stent placement. 14. History of EtOH and cocaine abuse in the past. 15. Dysphagia abd CT reviewed COVID positive swallow eval appreciated on diet fu cardiology and Id recs HD per nephrology fu labs recent labs and notes reviewed Subjective ROS Limited/Unobtainable: Yes Allergies: Coded Allergies: NO KNOWN ALLERGIES (Unverified Allergy, Unknown, 10/15/15) Objective Last 24 Hour Vital Signs Date Time Temp Pulse Resp B/P (MAP) Pulse Ox O2 Delivery O2 Flow Rate FiO2 03/24/20 04:00 97.9 79 20 100/64 (76) 94 03/24/20 00:00 97.8 90 19 115/58 (77) 95 03/23/20 21:00 Room Air 03/23/20 20:00 98.1 83 17 110/61 (77) 95 03/23/20 16:00 98.0 86 20 140/74 (96) 98 03/23/20 12:00 97.2 88 20 144/92 (109) 96 03/23/20 09:59 85 142/96 Intake and Output 03/23/20 03/24/20 19:00 07:00 Intake Total 800 ml 415 ml Balance 800 ml 415 ml Intake Oral 800 ml 360 ml IV Total 55 ml # Voids 2 # Bowel Movements 3 2 Laboratory Tests 03/24/20 04:59: White Blood Count 7.4, Red Blood Count 4.36, Hemoglobin 10.5L, Hematocrit 33.8L , Mean Corpuscular Volume 78L, Mean Corpuscular Hemoglobin 24.1L, Mean Corpuscular Hemoglobin Concent 31.1L, Red Cell Distribution Width 18.3H, Platelet Count 210, Mean Platelet Volume 6.4L, Neutrophils (%) (Auto) 51.9, Lymphocytes (%) (Auto) 26.2, Monocytes (%) (Auto) 11.4H, Eosinophils (%) (Auto) 9.7H, Basophils (%) (Auto) 0.9, Erythrocyte Sedimentation Rate 38H, Sodium Level 137, Potassium Level 4.3, Chloride Level 96L, Carbon Dioxide Level 25, Anion Gap 16H, Blood Urea Nitrogen 47H, Creatinine 8.7H, Estimat Glomerular Filtration Rate 5.6, Glucose Level 150H, Calcium Level 9.9, C-Reactive Protein, Quantitative < 0.4 Height (Feet): 5 Height (Inches): 7.00 Weight (Pounds): 210 General Appearance: no apparent distress EENT: PERRL/EOMI Neck: supple Cardiovascular: normal rate Respiratory/Chest: decreased breath sounds Abdomen: normal bowel sounds, non tender, soft Extremities: non-tender Jamison Garcia MD Mar 24, 2020 09:25
--- NOTE | 2020-03-24 11:36 | Nephrology Progress Note ---
Assessment/Plan Problem List: (1) Acute respiratory failure (2) ESRD (end stage renal disease) on dialysis (3) UTI (urinary tract infection) (4) Patient is Christianity (5) Pacemaker (6) Diabetes (7) Obesity (BMI 30-39.9) Assessment ARDS (adult respiratory distress syndrome) Fever Sepsis UTI (urinary tract infection) Respiratory failure, intubated on ventilator Thrombocytopenia Lymphopenia End stage renal disease on dialysis. Has a right upper arm dialysis fistula as Acces . Getting dialysis Sunday. morbid obesity Anemia / Jehova's witness CAD previous stent HTN- hypertensive urgency upon arrival to [facility]. s/p AVG DM 2 bilateral eye blindness h/o CHF Pacemaker Plan On Zyvox and cefepime Patient extubated March 04, and remains extubated, now in MedSurg floor Patient positive for Covid 19 Per ID and pulmonary, Last dialyzed March 23 next dialysis March 25 EPO, thiamin and b6 Phos binders NGT feeding per consultants Remains full code at this time Subjective ROS Limited/Unobtainable: No Constitutional: Reports: malaise, weakness Objective Objective Last 24 Hour Vital Signs Date Time Temp Pulse Resp B/P (MAP) Pulse Ox O2 Delivery O2 Flow Rate FiO2 03/24/20 09:00 93 102/60 03/24/20 04:00 97.9 79 20 100/64 (76) 94 03/24/20 00:00 97.8 90 19 115/58 (77) 95 03/23/20 21:00 Room Air 03/23/20 20:00 98.1 83 17 110/61 (77) 95 03/23/20 16:00 98.0 86 20 140/74 (96) 98 03/23/20 12:00 97.2 88 20 144/92 (109) 96 Intake and Output 03/23/20 03/24/20 19:00 07:00 Intake Total 800 ml 415 ml Balance 800 ml 415 ml Intake Oral 800 ml 360 ml IV Total 55 ml # Voids 2 # Bowel Movements 3 2 Current Medications Medications (Trade) Dose Ordered Sig/Josi Route PRN Reason Start Time Stop Time Status Last Admin Dose Admin Acetaminophen (Tylenol) 650 mg Q4H PRN GT fever 03/10/20 23:45 04/07/20 23:39 Acetaminophen/ Hydrocodone Bitart ([place] 10/325) 1 tab Q4H PRN GT Moderate Pain (Pain Scale 4-6) 03/23/20 13:00 03/30/20 12:56 03/23/20 23:17 Albuterol/ Ipratropium (Combivent Respimat) 1 puff Q4H PRN INH Shortness of Breath 03/10/20 23:45 04/07/20 23:40 Amlodipine Besylate (Norvasc) 2.5 mg DAILY NG 03/12/20 09:00 04/11/20 08:59 03/22/20 10:30 Atorvastatin Calcium (Lipitor) 10 mg BEDTIME NG 03/11/20 21:00 05/25/20 20:59 03/23/20 21:28 Cefepime HCl 500 mg/Dextrose 55 ml @ 110 mls/hr Q24H IVPB 03/15/20 21:00 03/26/20 23:59 03/23/20 21:27 Chlorhexidine Gluconate (Jenny-Hex 2%) 1 applic DAILY@2000 TOPIC 03/23/20 20:00 06/21/20 19:59 Daptomycin 800 mg/ Sodium Chloride 55 ml @ 100 mls/hr Q48H IV 03/24/20 18:00 03/31/20 17:59 Epoetin Jose De Jesus (Epoetin Jose De Jesus(ESRD on dialysis)) 8,000 unit SUN-SUN-SUN SUBQ 03/15/20 21:00 06/13/20 20:59 03/22/20 20:52 Heparin Sodium (Porcine) (Heparin 5000 units/ml) 5,000 units EVERY 12 HOURS SUBQ 03/11/20 09:00 04/10/20 08:59 03/24/20 09:00 Insulin Aspart (NovoLOG) Q6HR SUBQ 03/11/20 00:00 05/20/20 12:29 03/24/20 06:00 Linezolid (Zyvox) 600 mg EVERY 12 HOURS ORAL 03/18/20 21:00 03/29/20 19:59 03/24/20 09:00 Lorazepam (Ativan) 1 mg Q6H PRN ORAL For Anxiety 03/21/20 21:30 03/28/20 21:29 03/23/20 10:01 Memantine (Namenda) 5 mg DAILY ORAL 03/22/20 09:00 04/21/20 08:59 03/24/20 09:00 Ondansetron HCl (Zofran) 4 mg Q6H PRN IVP Nausea & Vomiting 03/11/20 00:30 03/26/20 06:29 Pantoprazole (Protonix) 40 mg EVERY 12 HOURS ORAL 03/17/20 21:00 04/16/20 20:59 03/24/20 09:00 Pyridoxine HCl (Vitamin B6) 50 mg DAILY ORAL 03/18/20 09:00 04/17/20 08:59 03/24/20 09:00 Sevelamer Carbonate (Renvela) 1,600 mg TID NG 03/18/20 13:00 05/25/20 11:59 03/24/20 09:00 Thiamine HCl (Vitamin B1) 100 mg DAILY ORAL 03/18/20 09:00 04/17/20 08:59 03/24/20 09:00 Laboratory Tests 03/24/20 04:59: White Blood Count 7.4, Red Blood Count 4.36, Hemoglobin 10.5L, Hematocrit 33.8L , Mean Corpuscular Volume 78L, Mean Corpuscular Hemoglobin 24.1L, Mean Corpuscular Hemoglobin Concent 31.1L, Red Cell Distribution Width 18.3H, Platelet Count 210, Mean Platelet Volume 6.4L, Neutrophils (%) (Auto) 51.9, Lymphocytes (%) (Auto) 26.2, Monocytes (%) (Auto) 11.4H, Eosinophils (%) (Auto) 9.7H, Basophils (%) (Auto) 0.9, Erythrocyte Sedimentation Rate 38H, Sodium Level 137, Potassium Level 4.3, Chloride Level 96L, Carbon Dioxide Level 25, Anion Gap 16H, Blood Urea Nitrogen 47H, Creatinine 8.7H, Estimat Glomerular Filtration Rate 5.6, Glucose Level 150H, Calcium Level 9.9, C-Reactive Protein, Quantitative < 0.4 Height (Feet): 5 Height (Inches): 7.00 Weight (Pounds): 210 General Appearance: no apparent distress, lethargic Cardiovascular: other - Variable Respiratory/Chest: decreased breath sounds Abdomen: distended Objective No change Bryan Hunter MD Mar 24, 2020 11:36
--- NOTE | 2020-03-24 11:59 | Pulmonology Progress Note ---
Assessment/Plan Problems: (1) Acute respiratory failure Assessment & Plan: extubated now (2) Bacteremia (3) COVID-19 virus infection (4) Accelerated hypertension (5) Sepsis (6) At high risk for aspiration (7) ESRD (end stage renal disease) on dialysis (8) Diabetes (9) Patient is Mosque (10) Morbid obesity Assessment/Plan still confused BC still positive still confused, off NG tube swallow study done, will need Barium swallow, on renal diet for now on isolation afebrile in the last few days f/u cultures respiratory treatment Subjective ROS Limited/Unobtainable: No Constitutional: Reports: no symptoms HEENT: Repors: no symptoms Respiratory: Reports: no symptoms Allergies: Coded Allergies: NO KNOWN ALLERGIES (Unverified Allergy, Unknown, 10/15/15) All Systems: reviewed and negative except above Objective Last 24 Hour Vital Signs Date Time Temp Pulse Resp B/P (MAP) Pulse Ox O2 Delivery O2 Flow Rate FiO2 03/24/20 09:00 93 102/60 03/24/20 04:00 97.9 79 20 100/64 (76) 94 03/24/20 00:00 97.8 90 19 115/58 (77) 95 03/23/20 21:00 Room Air 03/23/20 20:00 98.1 83 17 110/61 (77) 95 03/23/20 16:00 98.0 86 20 140/74 (96) 98 03/23/20 12:00 97.2 88 20 144/92 (109) 96 Intake and Output 03/23/20 03/24/20 19:00 07:00 Intake Total 800 ml 415 ml Balance 800 ml 415 ml Intake Oral 800 ml 360 ml IV Total 55 ml # Voids 2 # Bowel Movements 3 2 Objective swallow study done, results reviewed General Appearance: WD/WN, other - morbidly obese AA female HEENT: normocephalic, atraumatic Respiratory/Chest: chest wall non-tender, normal breath sounds Cardiovascular: normal peripheral pulses, normal rate, other - LUE PICC intact Abdomen: normal bowel sounds, soft, non tender Genitourinary: normal external genitalia Extremities: no clubbing, other - trace edema BLE, RUE AV shunt + bruit/thrill Skin: no rash Microbiology Date/Time Source Procedure Growth Status 03/22/20 17:00 Nasopharynx Coronavirus COVID-19 PCR ([facility]) - Final Complete Laboratory Tests 03/24/20 04:59: White Blood Count 7.4, Red Blood Count 4.36, Hemoglobin 10.5L, Hematocrit 33.8L , Mean Corpuscular Volume 78L, Mean Corpuscular Hemoglobin 24.1L, Mean Corpuscular Hemoglobin Concent 31.1L, Red Cell Distribution Width 18.3H, Platelet Count 210, Mean Platelet Volume 6.4L, Neutrophils (%) (Auto) 51.9, Lymphocytes (%) (Auto) 26.2, Monocytes (%) (Auto) 11.4H, Eosinophils (%) (Auto) 9.7H, Basophils (%) (Auto) 0.9, Erythrocyte Sedimentation Rate 38H, Sodium Level 137, Potassium Level 4.3, Chloride Level 96L, Carbon Dioxide Level 25, Anion Gap 16H, Blood Urea Nitrogen 47H, Creatinine 8.7H, Estimat Glomerular Filtration Rate 5.6, Glucose Level 150H, Calcium Level 9.9, Phosphorus Level [ Pending], Total Bilirubin [Pending], Direct Bilirubin [Pending], Aspartate Amino Transf (AST/SGOT) [Pending], Alanine Aminotransferase (ALT/SGPT) [Pending] , Alkaline Phosphatase [Pending], C-Reactive Protein, Quantitative < 0.4, Total Protein [Pending], Albumin [Pending] Current Medications Medications (Trade) Dose Ordered Sig/Josi Route PRN Reason Start Time Stop Time Status Last Admin Dose Admin Acetaminophen (Tylenol) 650 mg Q4H PRN GT fever 03/10/20 23:45 04/07/20 23:39 Acetaminophen/ Hydrocodone Bitart ([place] 10/325) 1 tab Q4H PRN GT Moderate Pain (Pain Scale 4-6) 03/23/20 13:00 03/30/20 12:56 03/23/20 23:17 Albuterol/ Ipratropium (Combivent Respimat) 1 puff Q4H PRN INH Shortness of Breath 03/10/20 23:45 04/07/20 23:40 Amlodipine Besylate (Norvasc) 2.5 mg DAILY NG 03/12/20 09:00 04/11/20 08:59 03/22/20 10:30 Atorvastatin Calcium (Lipitor) 10 mg BEDTIME NG 03/11/20 21:00 05/25/20 20:59 03/23/20 21:28 Cefepime HCl 500 mg/Dextrose 55 ml @ 110 mls/hr Q24H IVPB 03/15/20 21:00 03/26/20 23:59 03/23/20 21:27 Chlorhexidine Gluconate (Jenny-Hex 2%) 1 applic DAILY@2000 TOPIC 03/23/20 20:00 06/21/20 19:59 Daptomycin 800 mg/ Sodium Chloride 55 ml @ 100 mls/hr Q48H IV 03/24/20 18:00 03/31/20 17:59 Epoetin Jose De Jesus (Epoetin Jose De Jesus(ESRD on dialysis)) 8,000 unit SUN-SUN-SUN SUBQ 03/15/20 21:00 06/13/20 20:59 03/22/20 20:52 Heparin Sodium (Porcine) (Heparin 5000 units/ml) 5,000 units EVERY 12 HOURS SUBQ 03/11/20 09:00 04/10/20 08:59 03/24/20 09:00 Insulin Aspart (NovoLOG) Q6HR SUBQ 03/11/20 00:00 05/20/20 12:29 03/24/20 06:00 Linezolid (Zyvox) 600 mg EVERY 12 HOURS ORAL 03/18/20 21:00 03/29/20 19:59 03/24/20 09:00 Lorazepam (Ativan) 1 mg Q6H PRN ORAL For Anxiety 03/21/20 21:30 03/28/20 21:29 03/23/20 10:01 Memantine (Namenda) 5 mg DAILY ORAL 03/22/20 09:00 04/21/20 08:59 03/24/20 09:00 Ondansetron HCl (Zofran) 4 mg Q6H PRN IVP Nausea & Vomiting 03/11/20 00:30 03/26/20 06:29 Pantoprazole (Protonix) 40 mg EVERY 12 HOURS ORAL 03/17/20 21:00 04/16/20 20:59 03/24/20 09:00 Pyridoxine HCl (Vitamin B6) 50 mg DAILY ORAL 03/18/20 09:00 04/17/20 08:59 03/24/20 09:00 Sevelamer Carbonate (Renvela) 1,600 mg TID NG 03/18/20 13:00 05/25/20 11:59 03/24/20 09:00 Thiamine HCl (Vitamin B1) 100 mg DAILY ORAL 03/18/20 09:00 04/17/20 08:59 03/24/20 09:00 Meghana Murillo MD Mar 24, 2020 11:59
[2020-03-24 12:00] VITALS: BP 103/60
--- NOTE | 2020-03-24 12:00 | NUR ---
NURSE NOTES: Pt noted IV pulled out. Pt stated that it was itching and scratched. Tried IV start 3 times. unable to find IV.
[2020-03-24 12:04] LABS: ALANINE AMINOTRANSFERASE < 6 U/L (12-78); ALBUMIN 4.1 G/DL (3.4-5.0); ALKALINE PHOSPHATASE 257 U/L (46-116); ASPARTATE AMINO TRANSFERASE 43 U/L (15-37); BILIRUBIN,DIRECT 0.2 MG/DL (0.0-0.3); BILIRUBIN,TOTAL 0.8 MG/DL (0.2-1.0); PHOSPHORUS 4.7 MG/DL (2.5-4.9)
--- NOTE | 2020-03-24 12:06 | NUR ---
[facility] TRADER NOTE DR FRIEDMAN INFORMED PATIENT DID NOT HAVE LABS FOR HEP PANEL THIS HOSPITALIZATION. HEP PANEL RESULTS REQUIRED FOR OUTPATIENT HD. REQUESTED FOR DR FRIEDMAN TO ENTER ORDER. HE CONFIRMED AND WILL INPUT ORDER FOR HEP PANEL.
--- NOTE | 2020-03-24 15:08 | NUR ---
P.T Note: Pt seen for P.T. evaluation and tx. Please refer to P.T evaluation for current functional status.
--- NOTE | 2020-03-24 15:15 | NUR ---
CASE MANAGEMENT:REVIEW SI;SEPSIS. ACUTE RESPIRATORY FAILURE. ESRD ON HD. COVID-19 INFECTION (REPEAT 03/22/20 NOT DETECTED) 98.1 90 20 100/64 94% ON RA AST 43 ALK PHOS 257 IS;DAPTOMYCIN IIV Q48 HRA DYDNA-HEX TOP QD HEPARIN IV ONCE HEPARIN SUBQ Q12 HRS CIT B6 PO QD PROTONIS PO BID CEFEPIME IV QD MED SURG STATUS DCP;FROM [facility] PLAN;CONTINUE ISOLATION HEP PANEL REQUIRED FOR OPT HD PENDING
[2020-03-24 16:00] VITALS: BP 92/69
--- NOTE | 2020-03-24 16:00 | NUR ---
NURSE NOTES: PICC line placement cancelled. No IV access. Contacted Dr. Vanegas and informed of no iv access for anti biotic medication IV. Per Dr. Vanegas IV access needed to treat Bacteremia. Will set up PICC line placement tomorrow. Cubicin IV scheduled at 1800 will be skipped for today. aware.
--- NOTE | 2020-03-24 16:52 | Cardiology Progress Note ---
Assessment/Plan Assessment/Plan 1. Respiratory failure. 2. History of obesity hypoventilation syndrome. 3. History of pulmonary hypertension previously. 4. Urinary tract infection. 5. covid 19 infection confimred 6. pneumonia. 7. History of bacteremia with Staph epi recently on 02/05/2020. 8. somnolence 9. Polymicrobial bacteremia i did not examine pt personally with confirmed covid 19 sat normal off oxygen no cough no diarrhea all labs reviewed wbc normal still , sed rate is only 38!!! no fever since 03/05 despite all the bacteremia !! covid neg from 03/11 + on 03/13, repeat neg 03/23 awit 03/24 results has different organism on different blood cx eugenie still remain + need wbc scan for avf eval per id will check covid status again q12 x2 if neg will check echo awati 2nd resutls bp lower will dc norvasc Subjective ROS Limited/Unobtainable: Yes Subjective per rnPatient awake and alert x 4. Patient on room air , no SOB noted. Endorsed that PICC line will be placed, consent has been obtained and in chart. Right AV fistula covered with dressing clean and intact. no bleeding noted. Patient on droplet precautions due to positive covid 19 testing Objective Last 24 Hour Vital Signs Date Time Temp Pulse Resp B/P (MAP) Pulse Ox O2 Delivery O2 Flow Rate FiO2 03/24/20 12:00 95.5 78 20 103/60 (74) 97 03/24/20 09:00 93 102/60 03/24/20 09:00 Room Air 03/24/20 08:00 95.9 79 20 102/60 (74) 93 03/24/20 04:00 97.9 79 20 100/64 (76) 94 03/24/20 00:00 97.8 90 19 115/58 (77) 95 03/23/20 21:00 Room Air 03/23/20 20:00 98.1 83 17 110/61 (77) 95 General Appearance: no apparent distress - exam deffered due to active covid infection Intake and Output 03/23/20 03/24/20 19:00 07:00 Intake Total 800 ml 415 ml Output Total 2000 ml Balance 800 ml -1585 ml Intake Oral 800 ml 360 ml IV Total 55 ml Hemodialysis UF 2000 ml # Voids 2 # Bowel Movements 3 2 Laboratory Tests Test 03/24/20 04:59 White Blood Count 7.4 K/UL (4.8-10.8) Red Blood Count 4.36 M/UL (4.20-5.40) Hemoglobin 10.5 G/DL (12.0-16.0) L Hematocrit 33.8 % (37.0-47.0) L Mean Corpuscular Volume 78 FL (80-99) L Mean Corpuscular Hemoglobin 24.1 PG (27.0-31.0) L Mean Corpuscular Hemoglobin Concent 31.1 G/DL (32.0-36.0) L Red Cell Distribution Width 18.3 % (11.6-14.8) H Platelet Count 210 K/UL (150-450) Mean Platelet Volume 6.4 FL (6.5-10.1) L Neutrophils (%) (Auto) 51.9 % (45.0-75.0) Lymphocytes (%) (Auto) 26.2 % (20.0-45.0) Monocytes (%) (Auto) 11.4 % (1.0-10.0) H Eosinophils (%) (Auto) 9.7 % (0.0-3.0) H Basophils (%) (Auto) 0.9 % (0.0-2.0) Erythrocyte Sedimentation Rate 38 MM/HR (0-30) H Sodium Level 137 MMOL/L (136-145) Potassium Level 4.3 MMOL/L (3.5-5.1) Chloride Level 96 MMOL/L (98-107) L Carbon Dioxide Level 25 MMOL/L (21-32) Anion Gap 16 mmol/L (5-15) H Blood Urea Nitrogen 47 mg/dL (7-18) H Creatinine 8.7 MG/DL (0.55-1.30) H Estimat Glomerular Filtration Rate 5.6 mL/min (>60) Glucose Level 150 MG/DL (74-106) H Calcium Level 9.9 MG/DL (8.5-10.1) Phosphorus Level 4.7 MG/DL (2.5-4.9) Total Bilirubin 0.8 MG/DL (0.2-1.0) Direct Bilirubin 0.2 MG/DL (0.0-0.3) Aspartate Amino Transf (AST/SGOT) 43 U/L (15-37) H Alanine Aminotransferase (ALT/SGPT) < 6 U/L (12-78) L Alkaline Phosphatase 257 U/L (46-116) H C-Reactive Protein, Quantitative < 0.4 mg/dL (0.00-0.90) Total Protein 9.4 G/DL (6.4-8.2) H Albumin 4.1 G/DL (3.4-5.0) Hepatitis B Surface Antigen Pending Hepatitis B Surface Antibody, Quant Pending Hepatitis C Antibody Pending Microbiology Date/Time Source Procedure Growth Status 03/22/20 17:00 Nasopharynx Coronavirus COVID-19 PCR ([facility]) - Final Complete Wilfredo Reyna MD Mar 24, 2020 16:52
--- NOTE | 2020-03-24 17:25 | Infectious Diseases Prog Note ---
Assessment/Plan Assessment/Plan The patient is a 64-year-old female with Proteus bacteremia Persistent/recurrent S.epi and VRE bactereima (despite 6 weeks of treatment)- highly suspicious for endovascular source (ie AVF infection, endocarditis) 03/09 Bcx 02/27 VRE, S. epi, 03/10 Bcx 02/27 P . mirabilis, probable amp-C; VRE, CONS; 03/11 Bcx 2/2 sets S.epi; 03/15 12/30 S. epi, 1/ VRE; 03/16 Bcx 3/S.epi, 1/ VRE, 03/20 Bcx / GPC clusters; 03/23 Bcx p -CT abd/p: Cardiomegaly. Evidence of left ventricular muscular hypertrophy. Bilateral lower lobe and inferior lingular ill-defined parenchymal infiltrates, likely pneumonia but could indicate a component of pulmonary edema. Incidental findings as noted, including right renal cyst, evidence of prior hysterectomy, pacemaker, PICC, coronary stents and calcifications Enlarged heterogeneous thyroid. No acute abdominal process cholelithiasis and/ or gallbladder sludge. Diastasis of the rectus abdominis tendon and small fat- containing ventral hernia, also demonstrated previously. Confirmed COVID-19. 02/19 SARS-CoV PCR positive. -03/22 COVID neg x1 -1st repeat neg 03/11 ; 2nd repeat is positive 03/13 Pneumonia Mild leukocytosis, SP -03/09 u/a wbc 40-60, nit neg, leuk +3 Fever, recurrent, SP VDRF- sp self extubation 03/05, now on at RA - likely 2/2 COVID, less likely active bacterial superinfection since pt just completed empiric course of antibacterial therapy and sputum cx NG -03/07 CXR: Persistent vascular congestion and suspected interstitial edema.Cardiomegaly with pacer. - 03/01 CXR: Worsening bilateral hazy parenchymal infiltrates, versus edema - 02/20 CXR: Mild pulmonary vascular congestion with subtle bilateral haziness, not significantly changed.Possible tiny pleural effusions. Cardiomegaly. - Bcx ngtd - sp cx normal gui Less likely UTI u/a wbc tnct, nit +, leuk +3; ucx cindy(colonizer) Hx of positive blood culture CONS ,persistent; recurrent 02/04 BCx: CoNS 01/30 Bc: (1/2)CoNS and Citrobacter 01/27 , 3/9 Bc: CoNS - (outside facility, # of the +ve cultures are not clear) A 2D echo from outside facility did not show any evidence of vegetation as per Carido pt is high risk for CLAY: ( last admission ) Diabetes. CHF. ESRD. Hypertension. Obesity. 03/08 SP PICC Line placement; removed on 03/15 and new one placed PLAN: Continue Cefepime #10(abx d #13/14) for Proteus bacteremia Daptomycin #13 for VRE and S.epi bacteremia; Will add Linezolid #7 for synergisms -monitor CPK, platelets 03/15 SP Meropenem #4 03/12/20 SP IV Vancomycin #2 03/08 SP vancomycin, day # ? ( will Rx for probable SBE) 02/27 SP plaquenil+azithromycin #5 02/25 SP Ertapenem #8 02/24 DC amikacin #6 Monitor CBC. Monitor BMP. Monitor cultures (blood, Sp ) COVID19 isolation as 2nd repeat test is still positive f/u 2d Echo- will likely need CLAY will need WBC scan to eval for AVF infection f/u Bcx x2 Repeat COvid x2 DW RN Subjective Allergies: Coded Allergies: NO KNOWN ALLERGIES (Unverified Allergy, Unknown, 10/15/15) Subjective afebrile at RA no leukocytosis remains bateremic latest COVID is neg (x1) PT lost PICC line Objective Vital Signs Last 24 Hour Vital Signs Date Time Temp Pulse Resp B/P (MAP) Pulse Ox O2 Delivery O2 Flow Rate FiO2 03/24/20 12:00 95.5 78 20 103/60 (74) 97 03/24/20 09:00 93 102/60 03/24/20 09:00 Room Air 03/24/20 08:00 95.9 79 20 102/60 (74) 93 03/24/20 04:00 97.9 79 20 100/64 (76) 94 03/24/20 00:00 97.8 90 19 115/58 (77) 95 03/23/20 21:00 Room Air 03/23/20 20:00 98.1 83 17 110/61 (77) 95 Height (Feet): 5 Height (Inches): 7.00 Weight (Pounds): 210 Objective not seen to limit COVID19 exposure Microbiology Date/Time Source Procedure Growth Status 03/22/20 17:00 Nasopharynx Coronavirus COVID-19 PCR ([facility]) - Final Complete Laboratory Tests Test 03/24/20 04:59 White Blood Count 7.4 K/UL (4.8-10.8) Red Blood Count 4.36 M/UL (4.20-5.40) Hemoglobin 10.5 G/DL (12.0-16.0) L Hematocrit 33.8 % (37.0-47.0) L Mean Corpuscular Volume 78 FL (80-99) L Mean Corpuscular Hemoglobin 24.1 PG (27.0-31.0) L Mean Corpuscular Hemoglobin Concent 31.1 G/DL (32.0-36.0) L Red Cell Distribution Width 18.3 % (11.6-14.8) H Platelet Count 210 K/UL (150-450) Mean Platelet Volume 6.4 FL (6.5-10.1) L Neutrophils (%) (Auto) 51.9 % (45.0-75.0) Lymphocytes (%) (Auto) 26.2 % (20.0-45.0) Monocytes (%) (Auto) 11.4 % (1.0-10.0) H Eosinophils (%) (Auto) 9.7 % (0.0-3.0) H Basophils (%) (Auto) 0.9 % (0.0-2.0) Erythrocyte Sedimentation Rate 38 MM/HR (0-30) H Sodium Level 137 MMOL/L (136-145) Potassium Level 4.3 MMOL/L (3.5-5.1) Chloride Level 96 MMOL/L (98-107) L Carbon Dioxide Level 25 MMOL/L (21-32) Anion Gap 16 mmol/L (5-15) H Blood Urea Nitrogen 47 mg/dL (7-18) H Creatinine 8.7 MG/DL (0.55-1.30) H Estimat Glomerular Filtration Rate 5.6 mL/min (>60) Glucose Level 150 MG/DL (74-106) H Calcium Level 9.9 MG/DL (8.5-10.1) Phosphorus Level 4.7 MG/DL (2.5-4.9) Total Bilirubin 0.8 MG/DL (0.2-1.0) Direct Bilirubin 0.2 MG/DL (0.0-0.3) Aspartate Amino Transf (AST/SGOT) 43 U/L (15-37) H Alanine Aminotransferase (ALT/SGPT) < 6 U/L (12-78) L Alkaline Phosphatase 257 U/L (46-116) H C-Reactive Protein, Quantitative < 0.4 mg/dL (0.00-0.90) Total Protein 9.4 G/DL (6.4-8.2) H Albumin 4.1 G/DL (3.4-5.0) Hepatitis B Surface Antigen Pending Hepatitis B Surface Antibody, Quant Pending Hepatitis C Antibody Pending Current Medications Medications (Trade) Dose Ordered Sig/Josi Route PRN Reason Start Time Stop Time Status Last Admin Dose Admin Acetaminophen (Tylenol) 650 mg Q4H PRN GT fever 03/10/20 23:45 04/07/20 23:39 Acetaminophen/ Hydrocodone Bitart ([place] 10/325) 1 tab Q4H PRN GT Moderate Pain (Pain Scale 4-6) 03/23/20 13:00 03/30/20 12:56 03/23/20 23:17 Albuterol/ Ipratropium (Combivent Respimat) 1 puff Q4H PRN INH Shortness of Breath 03/10/20 23:45 04/07/20 23:40 Atorvastatin Calcium (Lipitor) 10 mg BEDTIME NG 03/11/20 21:00 05/25/20 20:59 03/23/20 21:28 Cefepime HCl 500 mg/Dextrose 55 ml @ 110 mls/hr Q24H IVPB 03/15/20 21:00 03/26/20 23:59 03/23/20 21:27 Chlorhexidine Gluconate (Jenny-Hex 2%) 1 applic DAILY@2000 TOPIC 03/23/20 20:00 06/21/20 19:59 Daptomycin 800 mg/ Sodium Chloride 55 ml @ 100 mls/hr Q48H IV 03/24/20 18:00 03/31/20 17:59 Epoetin Jose De Jesus (Epoetin Jose De Jesus(ESRD on dialysis)) 8,000 unit SUN-SUN-SUN SUBQ 03/15/20 21:00 06/13/20 20:59 03/22/20 20:52 Heparin Sodium (Porcine) (Heparin 5000 units/ml) 5,000 units EVERY 12 HOURS SUBQ 03/11/20 09:00 04/10/20 08:59 03/24/20 09:00 Insulin Aspart (NovoLOG) Q6HR SUBQ 03/11/20 00:00 05/20/20 12:29 03/24/20 12:00 Linezolid (Zyvox) 600 mg EVERY 12 HOURS ORAL 03/18/20 21:00 03/29/20 19:59 03/24/20 09:00 Lorazepam (Ativan) 1 mg Q6H PRN ORAL For Anxiety 03/21/20 21:30 03/28/20 21:29 03/23/20 10:01 Memantine (Namenda) 5 mg DAILY ORAL 03/22/20 09:00 04/21/20 08:59 03/24/20 09:00 Ondansetron HCl (Zofran) 4 mg Q6H PRN IVP Nausea & Vomiting 03/11/20 00:30 03/26/20 06:29 Pantoprazole (Protonix) 40 mg EVERY 12 HOURS ORAL 03/17/20 21:00 04/16/20 20:59 03/24/20 09:00 Pyridoxine HCl (Vitamin B6) 50 mg DAILY ORAL 03/18/20 09:00 04/17/20 08:59 03/24/20 09:00 Sevelamer Carbonate (Renvela) 1,600 mg TID NG 03/18/20 13:00 05/25/20 11:59 03/24/20 12:38 Thiamine HCl (Vitamin B1) 100 mg DAILY ORAL 03/18/20 09:00 04/17/20 08:59 03/24/20 09:00 Susi Vanegas M.D. Mar 24, 2020 17:25
--- NOTE | 2020-03-24 17:44 | Progress Note ---
DATE: 03/24/2020 SUBJECTIVE: This is a 64-year-old female patient with respiratory failure. She has some confusion, some disorganized thought process, and decline in cognition below baseline, but she also has medical problems such as obesity, anemia of chronic disease, lumbar radiculopathy, acute renal failure, coronary artery disease, blindness in both eyes. This why, her attending physician has requested daily psychiatric consultation. MENTAL STATUS EXAMINATION: This is a 64-year-old female patient. Her appearance is disheveled. Attitude, irritable and agitated. Affect, guarded and restricted. Intellect poor. Mood, depressed and anxious. Motor activity, psychomotor agitation. Insight and judgment is poor. DIAGNOSIS: Major depressive disorder, mild, recurrent with psychotic features, rule out dementia with psychosis. PLAN: Plan for this patient is to treat her with a medication regimen consisting of Namenda 5 mg daily, Ativan 1 mg every 6 hours p.r.n. anxiety and agitation. Twenty minutes of behavioral management provided. Chart reviewed. Discussed with staff. Seen and assessed at bedside. Iker Lawrence M.D. DR: BÁRBARA JOB#: [id number] CC:
[2020-03-24] MEDS ORDERED: DAPTOMYCIN IV SCH (18:00)
[2020-03-24] MEDS ORDERED: NS IV SCH (18:00)
--- NOTE | 2020-03-24 19:30 | NUR ---
NURSE NOTES: RECEIVED PATIENT FROM NATHALIA MYLES. PATIENT IS AWAKE, AAOX3, ON ROOM AIR, NO ACUTE DISTRESS NOTED. PATIENT IS MUCKLESHOOT, LEGALLY BLIND. LEFT UPPER CHEST PACEMAKER NOTED. AV FISTULA ON RIGHT UPPER ARM INTACT. NO IV ACCESS, DR. CUEVAS AWARE. BED IS LOCKED AND LOW, BED ALARMS ACTIVE, SIDE RAILS UPX2 AND CALL LIGHT IS WITHIN REACH. WILL CONTINUE TO MONITOR.
--- NOTE | 2020-03-24 19:37 | NUR ---
HAND-OFF: Report given to NATHALIA Tompkins.
[2020-03-24 20:00] VITALS: BP 108/59
[2020-03-24] MEDS: Dyna-Hex 2% Top Sol 2oz TOPIC SCH (20:00)
[2020-03-24] MEDS: Cefepime HCl 500 MG in D5W 55 ML IVPB SCH (21:00)
[2020-03-24] MEDS: Epoetin Alfa-EPBX(ESRD on dialysis)4000 units/ml vial SUBQ SCH (23:30)
[2020-03-25] VITALS: BP 113/65
--- NOTE | 2020-03-25 00:36 | NUR ---
NURSE NOTES: dialysis nurse came and went to the room. per young, patient refused to have dialysis. went to the room, explained the risks and benefits. still refused to have dialysis. charge nurse made aware.
[2020-03-25] MEDS: HYDROcodone/Acetamin 10/325 tab GT PRN (01:24)
[2020-03-25 04:00] VITALS: BP 104/63
--- NOTE | 2020-03-25 06:00 | NUR ---
NURSE NOTES: UNABLE TO DRAW AM LAB D/T NO BUTTERFLY NEEDLES STOCKED. WILL ENDORSED TO AM SHIFT.
[2020-03-25] MEDS: NovoLOG Insulin Flexpen SUBQ SCH ×3 (07:02→17:12)
--- NOTE | 2020-03-25 07:30 | NUR ---
NURSE NOTES received patient in bed,patient awake, alert, forgetfull at times,O[place]A [place] Hearing, no no sign of distress, no IV access noted, per NOC shift PMD aware,on fall, aspiration precaution, plan of care was discussed needs reinforcement will continue to monitor patient condition dylan jackson
--- NOTE | 2020-03-25 07:58 | NUR ---
HAND-OFF: Report given to NATHALIA Houston.
[2020-03-25 08:00] VITALS: BP 125/68
[2020-03-25] MEDS: Renvela 800mg Pkt NG SCH ×3 (08:36→17:10)
[2020-03-25] MEDS: Memantine 5 MG TAB ORAL SCH (08:36)
[2020-03-25] MEDS: Heparin 5000 units/ml inj SUBQ SCH ×2 (08:36→21:00)
[2020-03-25] MEDS: Pyridoxine 50mg tab ORAL SCH (08:36)
[2020-03-25 08:59] LABS: BASOPHILS % (AUTO) 1.5 % (0.0-2.0); EOSINOPHILS % (AUTO) 6.5 % (0.0-3.0); HEMATOCRIT 35.6 % (37.0-47.0); HEMOGLOBIN 11.2 G/DL (12.0-16.0); LYMPHOCYTES % (AUTO) 27.9 % (20.0-45.0); MEAN CORPUSCULAR VOLUME 78 FL (80-99); MONOCYTES % (AUTO) 12.6 % (1.0-10.0); NEUTROPHILS % (AUTO) 51.5 % (45.0-75.0); PLATELET COUNT 183 K/UL (150-450); RED BLOOD COUNT 4.57 M/UL (4.20-5.40); RED CELL DISTRIBUTION WIDTH 19.1 % (11.6-14.8); WHITE BLOOD COUNT 6.8 K/UL (4.8-10.8)
[2020-03-25 09:12] LABS: ANION GAP 15 mmol/L (5-15); BLOOD UREA NITROGEN 59 mg/dL (7-18); CALCIUM 10.2 MG/DL (8.5-10.1); CARBON DIOXIDE 24 MMOL/L (21-32); CHLORIDE 95 MMOL/L (98-107); CREATININE 10.4 MG/DL (0.55-1.30); POTASSIUM 4.5 MMOL/L (3.5-5.1); SODIUM 134 MMOL/L (136-145)
[2020-03-25] MEDS: Thiamine 100mg tab ORAL SCH (09:18)
--- NOTE | 2020-03-25 09:20 | General Progress Note ---
Assessment/Plan Status: unchanged Assessment/Plan: 1. Diabetes. 2. End-stage renal disease, on hemodialysis. 3. Chronic anemia. 4. Obesity. 5. Gastritis. 6. Kidney stones. 7. Abdominal hernia. 8. Hiatal hernia. 9. Cardiomegaly. 10. Hypercholesterolemia. 11. Hypertension. 12. Bilateral eye blindness. 13. Coronary artery disease and cardiac stent placement. 14. History of EtOH and cocaine abuse in the past. 15. Dysphagia abd CT reviewed COVID positive swallow eval appreciated on diet fu cardiology and Id recs HD per nephrology fu labs recent labs and notes reviewed hold GI procedures for now Subjective ROS Limited/Unobtainable: No Allergies: Coded Allergies: NO KNOWN ALLERGIES (Unverified Allergy, Unknown, 10/15/15) Objective Last 24 Hour Vital Signs Date Time Temp Pulse Resp B/P (MAP) Pulse Ox O2 Delivery O2 Flow Rate FiO2 03/25/20 09:00 Room Air 03/25/20 08:00 98.4 80 20 125/68 (87) 98 03/25/20 04:00 98.3 69 20 104/63 (77) 94 03/25/20 00:00 98.2 78 20 113/65 (81) 99 03/24/20 21:00 Room Air 03/24/20 20:00 98.6 81 16 108/59 (75) 97 03/24/20 16:00 95.7 82 20 92/69 (77) 100 03/24/20 12:00 95.5 78 20 103/60 (74) 97 Intake and Output 03/24/20 03/25/20 19:00 07:00 Intake Total 500 ml Balance 500 ml Intake Oral 500 ml # Bowel Movements 2 2 Laboratory Tests 03/25/20 08:30: White Blood Count 6.8, Red Blood Count 4.57, Hemoglobin 11.2L, Hematocrit 35.6L , Mean Corpuscular Volume 78L, Mean Corpuscular Hemoglobin 24.6L, Mean Corpuscular Hemoglobin Concent 31.6L, Red Cell Distribution Width 19.1H, Platelet Count 183, Mean Platelet Volume 6.7, Neutrophils (%) (Auto) 51.5, Lymphocytes (%) (Auto) 27.9, Monocytes (%) (Auto) 12.6H, Eosinophils (%) (Auto) 6.5H, Basophils (%) (Auto) 1.5, Sodium Level [Pending], Potassium Level [Pending ], Chloride Level [Pending], Carbon Dioxide Level [Pending], Blood Urea Nitrogen [Pending], Creatinine [Pending], Estimat Glomerular Filtration Rate [ Pending], Glucose Level [Pending], Calcium Level [Pending] Height (Feet): 5 Height (Inches): 7.00 Weight (Pounds): 211 General Appearance: no apparent distress EENT: normal ENT inspection Neck: supple Cardiovascular: normal rate Respiratory/Chest: decreased breath sounds Abdomen: normal bowel sounds, non tender, soft Extremities: non-tender Jamison Garcia MD Mar 25, 2020 09:20
--- NOTE | 2020-03-25 10:20 | NUR ---
nurse notes left message to Dr Vanegas office regarding patient PICC line , per radiology unable to insert PICC line to this patient , poor IV access, and they already inserted 5x, and patient will pull out again,in case they will insert the PICC LINE today ther's no MD to read the XRAY for patency verification NATHALIA HEALY
[2020-03-25] MEDS ORDERED: LORazepam Inj 2mg/ml 1ml IM SCH (11:00)
--- NOTE | 2020-03-25 11:01 | General Progress Note ---
Assessment/Plan Problem List: (1) Obesity (BMI 30-39.9) ICD Codes: E66.9 - Obesity, unspecified SNOMED: 504460614, 002780690 (2) COVID-19 virus infection ICD Codes: U07.1 - COVID-19 SNOMED: 455615058 (3) Acute respiratory failure ICD Codes: J96.00 - Acute respiratory failure, unspecified whether with hypoxia or hypercapnia SNOMED: 03162951 (4) Blindness of both eyes ICD Codes: H54.0 - Blindness SNOMED: 419273261 (5) ESRD (end stage renal disease) on dialysis ICD Codes: N18.6 - End stage renal disease; Z99.2 - Dependence on renal dialysis SNOMED: 144822268 (6) Anemia ICD Codes: D64.9 - Anemia, unspecified SNOMED: 825940743 (7) Diabetes ICD Codes: E11.9 - Type 2 diabetes mellitus without complications SNOMED: 64043303 (8) AMS (altered mental status) ICD Codes: R41.82 - Altered mental status, unspecified SNOMED: 943589352 Status: unchanged Assessment/Plan: vent abx dialysis cbc bmp am ltach eval psyc and sx eval for iv access Subjective Constitutional: Reports: weakness Allergies: Coded Allergies: NO KNOWN ALLERGIES (Unverified Allergy, Unknown, 10/15/15) All Systems: reviewed and negative except above Subjective lethargic sleepy Objective Last 24 Hour Vital Signs Date Time Temp Pulse Resp B/P (MAP) Pulse Ox O2 Delivery O2 Flow Rate FiO2 03/25/20 09:00 Room Air 03/25/20 08:00 98.4 80 20 125/68 (87) 98 03/25/20 04:00 98.3 69 20 104/63 (77) 94 03/25/20 00:00 98.2 78 20 113/65 (81) 99 03/24/20 21:00 Room Air 03/24/20 20:00 98.6 81 16 108/59 (75) 97 03/24/20 16:00 95.7 82 20 92/69 (77) 100 03/24/20 12:00 95.5 78 20 103/60 (74) 97 Intake and Output 03/24/20 03/25/20 19:00 07:00 Intake Total 500 ml Balance 500 ml Intake Oral 500 ml # Bowel Movements 2 2 Laboratory Tests 03/25/20 08:30: White Blood Count 6.8, Red Blood Count 4.57, Hemoglobin 11.2L, Hematocrit 35.6L , Mean Corpuscular Volume 78L, Mean Corpuscular Hemoglobin 24.6L, Mean Corpuscular Hemoglobin Concent 31.6L, Red Cell Distribution Width 19.1H, Platelet Count 183, Mean Platelet Volume 6.7, Neutrophils (%) (Auto) 51.5, Lymphocytes (%) (Auto) 27.9, Monocytes (%) (Auto) 12.6H, Eosinophils (%) (Auto) 6.5H, Basophils (%) (Auto) 1.5, Sodium Level 134L, Potassium Level 4.5, Chloride Level 95L, Carbon Dioxide Level 24, Anion Gap 15, Blood Urea Nitrogen 59H, Creatinine 10.4H, Estimat Glomerular Filtration Rate 4.6, Glucose Level 149H, Calcium Level 10.2H Height (Feet): 5 Height (Inches): 7.00 Weight (Pounds): 211 General Appearance: lethargic EENT: normal ENT inspection Neck: normal alignment Cardiovascular: normal rate, regular rhythm Respiratory/Chest: no respiratory distress, no accessory muscle use Extremities: normal inspection Skin: normal pigmentation Roderick Henning DO Mar 25, 2020 11:01
--- NOTE | 2020-03-25 11:20 | NUR ---
nurse notes ativan not given at this time, patient calm and quiet, she just want to eat sandwich, unable to give sandwich patient is on pureed diet dylan jackson
--- NOTE | 2020-03-25 11:29 | Pulmonology Progress Note ---
Assessment/Plan Problems: (1) Sepsis (2) Bacteremia (3) COVID-19 virus infection (4) Accelerated hypertension (5) At high risk for aspiration (6) ESRD (end stage renal disease) on dialysis (7) Diabetes (8) Patient is Taoist (9) Morbid obesity Assessment/Plan still confused BC still positive keeps pulling PICC lines. off NG tube swallow study done, will need Barium swallow, on renal diet for now on isolation afebrile in the last few days f/u cultures respiratory treatment Subjective ROS Limited/Unobtainable: No Constitutional: Reports: no symptoms HEENT: Repors: no symptoms Respiratory: Reports: no symptoms Allergies: Coded Allergies: NO KNOWN ALLERGIES (Unverified Allergy, Unknown, 10/15/15) All Systems: reviewed and negative except above Objective Last 24 Hour Vital Signs Date Time Temp Pulse Resp B/P (MAP) Pulse Ox O2 Delivery O2 Flow Rate FiO2 03/25/20 09:00 Room Air 03/25/20 08:00 98.4 80 20 125/68 (87) 98 03/25/20 04:00 98.3 69 20 104/63 (77) 94 03/25/20 00:00 98.2 78 20 113/65 (81) 99 03/24/20 21:00 Room Air 03/24/20 20:00 98.6 81 16 108/59 (75) 97 03/24/20 16:00 95.7 82 20 92/69 (77) 100 03/24/20 12:00 95.5 78 20 103/60 (74) 97 Intake and Output 03/24/20 03/25/20 19:00 07:00 Intake Total 500 ml Balance 500 ml Intake Oral 500 ml # Bowel Movements 2 2 Objective swallow study done, results reviewed General Appearance: WD/WN, other - morbidly obese AA female HEENT: normocephalic, atraumatic Respiratory/Chest: chest wall non-tender, normal breath sounds Cardiovascular: normal peripheral pulses, normal rate, other - LUE PICC intact Abdomen: normal bowel sounds, soft, non tender Genitourinary: normal external genitalia Extremities: no clubbing, other - trace edema BLE, RUE AV shunt + bruit/thrill Skin: no rash Microbiology Date/Time Source Procedure Growth Status 03/22/20 17:00 Nasopharynx Coronavirus COVID-19 PCR ([facility]) - Final Complete Laboratory Tests 03/25/20 08:30: White Blood Count 6.8, Red Blood Count 4.57, Hemoglobin 11.2L, Hematocrit 35.6L , Mean Corpuscular Volume 78L, Mean Corpuscular Hemoglobin 24.6L, Mean Corpuscular Hemoglobin Concent 31.6L, Red Cell Distribution Width 19.1H, Platelet Count 183, Mean Platelet Volume 6.7, Neutrophils (%) (Auto) 51.5, Lymphocytes (%) (Auto) 27.9, Monocytes (%) (Auto) 12.6H, Eosinophils (%) (Auto) 6.5H, Basophils (%) (Auto) 1.5, Sodium Level 134L, Potassium Level 4.5, Chloride Level 95L, Carbon Dioxide Level 24, Anion Gap 15, Blood Urea Nitrogen 59H, Creatinine 10.4H, Estimat Glomerular Filtration Rate 4.6, Glucose Level 149H, Calcium Level 10.2H Current Medications Medications (Trade) Dose Ordered Sig/Josi Route PRN Reason Start Time Stop Time Status Last Admin Dose Admin Acetaminophen (Tylenol) 650 mg Q4H PRN GT fever 03/10/20 23:45 04/07/20 23:39 Acetaminophen/ Hydrocodone Bitart ([place] 10/325) 1 tab Q4H PRN GT Moderate Pain (Pain Scale 4-6) 03/23/20 13:00 03/30/20 12:56 03/25/20 01:24 Albuterol/ Ipratropium (Combivent Respimat) 1 puff Q4H PRN INH Shortness of Breath 03/10/20 23:45 04/07/20 23:40 Atorvastatin Calcium (Lipitor) 10 mg BEDTIME NG 03/11/20 21:00 05/25/20 20:59 03/24/20 23:30 Cefepime HCl 500 mg/Dextrose 55 ml @ 110 mls/hr Q24H IVPB 03/15/20 21:00 03/26/20 23:59 03/23/20 21:27 Chlorhexidine Gluconate (Jenny-Hex 2%) 1 applic DAILY@2000 TOPIC 03/23/20 20:00 06/21/20 19:59 Daptomycin 800 mg/ Sodium Chloride 55 ml @ 100 mls/hr Q48H IV 03/24/20 18:00 03/31/20 17:59 Epoetin Jose De Jesus (Epoetin Jose De Jesus(ESRD on dialysis)) 8,000 unit SUBQ 03/15/20 21:00 06/13/20 20:59 03/24/20 23:30 Heparin Sodium (Porcine) (Heparin 5000 units/ml) 5,000 units EVERY 12 HOURS SUBQ 03/11/20 09:00 04/10/20 08:59 03/25/20 08:36 Insulin Aspart (NovoLOG) Q6HR SUBQ 03/11/20 00:00 05/20/20 12:29 03/25/20 07:02 Linezolid (Zyvox) 600 mg EVERY 12 HOURS ORAL 03/18/20 21:00 03/29/20 19:59 03/25/20 08:36 Lorazepam (Ativan 2mg/ml 1ml) 1 mg ONCE IM 03/25/20 11:00 03/25/20 12:00 Lorazepam (Ativan) 1 mg Q6H PRN ORAL For Anxiety 03/21/20 21:30 03/28/20 21:29 03/23/20 10:01 Memantine (Namenda) 5 mg DAILY ORAL 03/22/20 09:00 04/21/20 08:59 03/25/20 08:36 Ondansetron HCl (Zofran) 4 mg Q6H PRN IVP Nausea & Vomiting 03/11/20 00:30 03/26/20 06:29 Pantoprazole (Protonix) 40 mg EVERY 12 HOURS ORAL 03/17/20 21:00 04/16/20 20:59 03/25/20 08:36 Pyridoxine HCl (Vitamin B6) 50 mg DAILY ORAL 03/18/20 09:00 04/17/20 08:59 03/25/20 08:36 Sevelamer Carbonate (Renvela) 1,600 mg TID NG 03/18/20 13:00 05/25/20 11:59 03/25/20 08:36 Thiamine HCl (Vitamin B1) 100 mg DAILY ORAL 03/18/20 09:00 04/17/20 08:59 03/25/20 09:18 Meghana Murillo MD Mar 25, 2020 11:29
[2020-03-25 12:00] VITALS: BP 130/72
--- NOTE | 2020-03-25 12:37 | NUR ---
WEEKLY SWALLOW/SPEECH THERAPY SUMMARY: THE PATIENT WAS SEEN FOR DYSPHAGIA, SEE SWALLOWING EVALUATION REPORT. GOALS FOR INTAKE VARIABLY MET (NOT CONSISTENT YET AT 75% OR MORE AND NEEDS NEPRO HIGH ASA SUP). PER RNYOVANI, NEPRO NOT COMING UP EVEN THOUGH THE ORDER IS IN FOR BID. ST CALLED [facility] TO MAKE SURE THEY SEND IT. SIGN FOR ASPIRATION PRECAUTIONS NOT ABOVE THE BED NOW THAT THE PATIENT IS ON A 4 EAST. REVIEWED SIGN AND ASPIRATION WITH RNYOVANI, WHO FEEDS THE PATIENT WHO IS COVID 19 POSITIVE. PER RN, THE PATIENT IS TOLERATING THE PUREED AND NECTAR THICK LIQUID DIET W/O OVERT ASPIRATION. PLAN: COMPLETE MOD BARIUM SWALLOW STUDY WHEN PT IS COVID 19 NEGATIVE CONTINUE WITH PLAN OF CARE ON SWALLOW EVAL REPORT. CONTINUE WITH CURRENT DIET/LIQUIDS WITH POSTED PRECAUTIONS AND ORAL CARE Addendum: 03/25/20 at 1243 by STEPHANIE NELSON CORE SUCKER NOT ALERT FOR PO TRIALS WILL COMPLETE [employer] Business Plan EVAL/TX WHEN NEG FOR COVID [address] BY [address] MUSTAFA WAS SIGNED.
--- NOTE | 2020-03-25 13:41 | Nephrology Progress Note ---
Assessment/Plan Problem List: (1) Acute respiratory failure (2) ESRD (end stage renal disease) on dialysis (3) UTI (urinary tract infection) (4) Patient is Mosque (5) Pacemaker (6) Diabetes (7) Obesity (BMI 30-39.9) Assessment ARDS (adult respiratory distress syndrome) Fever Sepsis UTI (urinary tract infection) Respiratory failure, intubated on ventilator Thrombocytopenia Lymphopenia End stage renal disease on dialysis. Has a right upper arm dialysis fistula as Acces . Getting dialysis Sunday. morbid obesity Anemia / Jehova's witness CAD previous stent HTN- hypertensive urgency upon arrival to [facility]. s/p AVG DM 2 bilateral eye blindness h/o CHF Pacemaker Plan On Zyvox and cefepime and daptomycin There is an issue with patient's IV line. She has pulled out previous PICC line's. Discussed with RN Previously Patient extubated March 04, and remains extubated, now in MedSurg floor Patient positive for Covid 19 Per ID and pulmonary, Last dialyzed March 23 next dialysis March 25 EPO, thiamin and b6 Phos binders NGT feeding per consultants Remains full code at this time Subjective ROS Limited/Unobtainable: No Constitutional: Reports: malaise Objective Objective Last 24 Hour Vital Signs Date Time Temp Pulse Resp B/P (MAP) Pulse Ox O2 Delivery O2 Flow Rate FiO2 03/25/20 12:00 98.6 84 19 130/72 (91) 98 03/25/20 09:00 Room Air 03/25/20 08:00 98.4 80 20 125/68 (87) 98 03/25/20 04:00 98.3 69 20 104/63 (77) 94 03/25/20 00:00 98.2 78 20 113/65 (81) 99 03/24/20 21:00 Room Air 03/24/20 20:00 98.6 81 16 108/59 (75) 97 03/24/20 16:00 95.7 82 20 92/69 (77) 100 Intake and Output 03/24/20 03/25/20 19:00 07:00 Intake Total 500 ml Balance 500 ml Intake Oral 500 ml # Bowel Movements 2 2 Laboratory Tests 03/25/20 08:30: White Blood Count 6.8, Red Blood Count 4.57, Hemoglobin 11.2L, Hematocrit 35.6L , Mean Corpuscular Volume 78L, Mean Corpuscular Hemoglobin 24.6L, Mean Corpuscular Hemoglobin Concent 31.6L, Red Cell Distribution Width 19.1H, Platelet Count 183, Mean Platelet Volume 6.7, Neutrophils (%) (Auto) 51.5, Lymphocytes (%) (Auto) 27.9, Monocytes (%) (Auto) 12.6H, Eosinophils (%) (Auto) 6.5H, Basophils (%) (Auto) 1.5, Sodium Level 134L, Potassium Level 4.5, Chloride Level 95L, Carbon Dioxide Level 24, Anion Gap 15, Blood Urea Nitrogen 59H, Creatinine 10.4H, Estimat Glomerular Filtration Rate 4.6, Glucose Level 149H, Calcium Level 10.2H Height (Feet): 5 Height (Inches): 7.00 Weight (Pounds): 211 General Appearance: no apparent distress Cardiovascular: tachycardia Respiratory/Chest: decreased breath sounds Abdomen: soft Objective No change Bryan Hunter MD Mar 25, 2020 13:40
[2020-03-25] MEDS ORDERED: Heparin1,000 units/500ml Premix(Conc:2 units/ml) IV PRN (14:00)
[2020-03-25] MEDS ORDERED: Lidocaine 1% Plain 30 ml INJ PRN (14:00)
--- NOTE | 2020-03-25 14:07 | Infectious Diseases Prog Note ---
Assessment/Plan Assessment/Plan The patient is a 64-year-old female with Proteus bacteremia Persistent/recurrent S.epi and VRE bactereima (despite 6 weeks of treatment)- highly suspicious for endovascular source (ie AVF infection, endocarditis) 03/09 Bcx 02/27 VRE, S. epi, 03/10 Bcx 02/27 P . mirabilis, probable amp-C; VRE, CONS; 03/11 Bcx 2/2 sets S.epi; 03/15 12/30 S. epi, 1/ VRE; 03/16 Bcx 3/S.epi, 1/ VRE, 03/20 Bcx / GPC clusters; 03/23 Bcx p -CT abd/p: Cardiomegaly. Evidence of left ventricular muscular hypertrophy. Bilateral lower lobe and inferior lingular ill-defined parenchymal infiltrates, likely pneumonia but could indicate a component of pulmonary edema. Incidental findings as noted, including right renal cyst, evidence of prior hysterectomy, pacemaker, PICC, coronary stents and calcifications Enlarged heterogeneous thyroid. No acute abdominal process cholelithiasis and/ or gallbladder sludge. Diastasis of the rectus abdominis tendon and small fat- containing ventral hernia, also demonstrated previously. Confirmed COVID-19. 02/19 SARS-CoV PCR positive. -03/22 COVID neg x1 -1st repeat neg 03/11 ; 2nd repeat is positive 03/13 Pneumonia Mild leukocytosis, SP -03/09 u/a wbc 40-60, nit neg, leuk +3 Fever, recurrent, SP VDRF- sp self extubation 03/05, now on at RA - likely 2/2 COVID, less likely active bacterial superinfection since pt just completed empiric course of antibacterial therapy and sputum cx NG -03/07 CXR: Persistent vascular congestion and suspected interstitial edema.Cardiomegaly with pacer. - 03/01 CXR: Worsening bilateral hazy parenchymal infiltrates, versus edema - 02/20 CXR: Mild pulmonary vascular congestion with subtle bilateral haziness, not significantly changed.Possible tiny pleural effusions. Cardiomegaly. - Bcx ngtd - sp cx normal gui Less likely UTI u/a wbc tnct, nit +, leuk +3; ucx cindy(colonizer) Hx of positive blood culture CONS ,persistent; recurrent 02/04 BCx: CoNS 01/30 Bc: (1/2)CoNS and Citrobacter 01/27 , 3/9 Bc: CoNS - (outside facility, # of the +ve cultures are not clear) A 2D echo from outside facility did not show any evidence of vegetation as per Carido pt is high risk for CLAY: ( last admission ) Diabetes. CHF. ESRD. Hypertension. Obesity. 03/08 SP PICC Line placement; removed on 03/15 and new one placed PLAN: Switch Cefepime #10(abx d #13/14) to IM Ertapenem for Proteus bacteremia (lost IV access Switch Daptomycin #13 back to IV Vancomycin- -will dose IV Vancomycin via AVF during HD days given pt lost IV access (had lost it multiple times already, hard stick) Continue Linezolid #8 for synergisms -monitor CPK, platelets 03/15 SP Meropenem #4 03/12/20 SP IV Vancomycin #2 03/08 SP vancomycin, day # ? ( will Rx for probable SBE) 02/27 SP plaquenil+azithromycin #5 02/25 SP Ertapenem #8 02/24 DC amikacin #6 Monitor CBC. Monitor BMP. Monitor cultures (blood, Sp ) COVID19 isolation as 2nd repeat test is still positive f/u 2d Echo- will likely need CLAY will need WBC scan to eval for AVF infection f/u Bcx x2 Repeat COvid x2 DW RN, Dr Hunter, Dr Murillo, Dr Henning and pharmacist. Subjective Allergies: Coded Allergies: NO KNOWN ALLERGIES (Unverified Allergy, Unknown, 10/15/15) Subjective afebrile pt lost IV access yesterday (has pulled PICC line multiple times already) no leukocytosis at RA repaet Bcx p Objective Vital Signs Last 24 Hour Vital Signs Date Time Temp Pulse Resp B/P (MAP) Pulse Ox O2 Delivery O2 Flow Rate FiO2 03/25/20 12:00 98.6 84 19 130/72 (91) 98 03/25/20 09:00 Room Air 03/25/20 08:00 98.4 80 20 125/68 (87) 98 03/25/20 04:00 98.3 69 20 104/63 (77) 94 03/25/20 00:00 98.2 78 20 113/65 (81) 99 03/24/20 21:00 Room Air 03/24/20 20:00 98.6 81 16 108/59 (75) 97 03/24/20 16:00 95.7 82 20 92/69 (77) 100 Height (Feet): 5 Height (Inches): 7.00 Weight (Pounds): 211 Objective not seen to limit COVID19 exposure Microbiology Date/Time Source Procedure Growth Status 03/22/20 17:00 Nasopharynx Coronavirus COVID-19 PCR ([facility]) - Final Complete Laboratory Tests Test 03/25/20 08:30 White Blood Count 6.8 K/UL (4.8-10.8) Red Blood Count 4.57 M/UL (4.20-5.40) Hemoglobin 11.2 G/DL (12.0-16.0) L Hematocrit 35.6 % (37.0-47.0) L Mean Corpuscular Volume 78 FL (80-99) L Mean Corpuscular Hemoglobin 24.6 PG (27.0-31.0) L Mean Corpuscular Hemoglobin Concent 31.6 G/DL (32.0-36.0) L Red Cell Distribution Width 19.1 % (11.6-14.8) H Platelet Count 183 K/UL (150-450) Mean Platelet Volume 6.7 FL (6.5-10.1) Neutrophils (%) (Auto) 51.5 % (45.0-75.0) Lymphocytes (%) (Auto) 27.9 % (20.0-45.0) Monocytes (%) (Auto) 12.6 % (1.0-10.0) H Eosinophils (%) (Auto) 6.5 % (0.0-3.0) H Basophils (%) (Auto) 1.5 % (0.0-2.0) Sodium Level 134 MMOL/L (136-145) L Potassium Level 4.5 MMOL/L (3.5-5.1) Chloride Level 95 MMOL/L (98-107) L Carbon Dioxide Level 24 MMOL/L (21-32) Anion Gap 15 mmol/L (5-15) Blood Urea Nitrogen 59 mg/dL (7-18) H Creatinine 10.4 MG/DL (0.55-1.30) H Estimat Glomerular Filtration Rate 4.6 mL/min (>60) Glucose Level 149 MG/DL (74-106) H Calcium Level 10.2 MG/DL (8.5-10.1) H Current Medications Medications (Trade) Dose Ordered Sig/Josi Route PRN Reason Start Time Stop Time Status Last Admin Dose Admin Acetaminophen (Tylenol) 650 mg Q4H PRN GT fever 03/10/20 23:45 04/07/20 23:39 Acetaminophen/ Hydrocodone Bitart ([place] 10/325) 1 tab Q4H PRN GT Moderate Pain (Pain Scale 4-6) 03/23/20 13:00 03/30/20 12:56 03/25/20 01:24 Albuterol/ Ipratropium (Combivent Respimat) 1 puff Q4H PRN INH Shortness of Breath 03/10/20 23:45 04/07/20 23:40 Atorvastatin Calcium (Lipitor) 10 mg BEDTIME NG 03/11/20 21:00 05/25/20 20:59 03/24/20 23:30 Cefepime HCl 500 mg/Dextrose 55 ml @ 110 mls/hr Q24H IVPB 03/15/20 21:00 03/26/20 23:59 03/23/20 21:27 Chlorhexidine Gluconate (Jenny-Hex 2%) 1 applic DAILY@2000 TOPIC 03/23/20 20:00 06/21/20 19:59 Daptomycin 800 mg/ Sodium Chloride 55 ml @ 100 mls/hr Q48H IV 03/24/20 18:00 03/31/20 17:59 Epoetin Jose De Jesus (Epoetin Jose De Jesus(ESRD on dialysis)) 8,000 unit SUN-SUN-SUN SUBQ 03/15/20 21:00 06/13/20 20:59 03/24/20 23:30 Heparin Sodium (Porcine) (Heparin 5000 units/ml) 5,000 units EVERY 12 HOURS SUBQ 03/11/20 09:00 04/10/20 08:59 03/25/20 08:36 Heparin Sodium/ Sodium Chloride (Heparin 1000 units/500ml Premix) 1,000 unit ONCE PRN IV PICC PLACEMENT 03/25/20 14:00 03/26/20 23:59 Insulin Aspart (NovoLOG) Q6HR SUBQ 03/11/20 00:00 05/20/20 12:29 03/25/20 07:02 Lidocaine HCl (Xylocaine 1% 30ml) 30 ml ONCE PRN INJ PICC PLACEMENT 03/25/20 14:00 03/26/20 23:59 Linezolid (Zyvox) 600 mg EVERY 12 HOURS ORAL 03/18/20 21:00 03/29/20 19:59 03/25/20 08:36 Lorazepam (Ativan) 1 mg Q6H PRN ORAL For Anxiety 03/21/20 21:30 03/28/20 21:29 03/23/20 10:01 Memantine (Namenda) 5 mg DAILY ORAL 03/22/20 09:00 04/21/20 08:59 03/25/20 08:36 Ondansetron HCl (Zofran) 4 mg Q6H PRN IVP Nausea & Vomiting 03/11/20 00:30 03/26/20 06:29 Pantoprazole (Protonix) 40 mg EVERY 12 HOURS ORAL 03/17/20 21:00 04/16/20 20:59 03/25/20 08:36 Pyridoxine HCl (Vitamin B6) 50 mg DAILY ORAL 03/18/20 09:00 04/17/20 08:59 03/25/20 08:36 Sevelamer Carbonate (Renvela) 1,600 mg TID NG 03/18/20 13:00 05/25/20 11:59 03/25/20 13:01 Thiamine HCl (Vitamin B1) 100 mg DAILY ORAL 03/18/20 09:00 04/17/20 08:59 03/25/20 09:18 Susi Vanegas M.D. Mar 25, 2020 14:07
[2020-03-25] MEDS ORDERED: Vancomycin 1.5gm/NS Premix IVPB PRN (14:45)
--- NOTE | 2020-03-25 14:50 | NUR ---
nurse notes Dr Vanegas agreed with the plan of care, patient getting vancomycin after HD , HD nurse will give the medemilee jackson rn
[2020-03-25] MEDS: Ertapenem (INVanz) 1gm Inj IM SCH (15:51)
[2020-03-25] MEDS: Lidocaine 1% MPF 10mg/ml 5ml INJ SCH (15:53)
[2020-03-25 16:00] VITALS: BP 126/74
[2020-03-25] MEDS ORDERED: Ertapenem (INVanz) 1gm Inj IM SCH (16:00)
[2020-03-25] MEDS ORDERED: Lidocaine 1% MPF 10mg/ml 5ml INJ SCH (16:00)
--- NOTE | 2020-03-25 16:07 | Cardiology Progress Note ---
Assessment/Plan Assessment/Plan 1. Respiratory failure. 2. History of obesity hypoventilation syndrome. 3. History of pulmonary hypertension previously. 4. Urinary tract infection. 5. covid 19 infection confimred 6. pneumonia. 7. History of bacteremia with Staph epi recently on 02/05/2020. 8. somnolence 9. Polymicrobial bacteremia i did not examine pt personally with confirmed covid 19 sat normal off oxygen no cough no diarrhea all labs reviewed wbc normal still , sed rate is only 38!!! no fever since 03/05 despite all the bacteremia !! covid neg from 03/11 + on 03/13, repeat neg 03/23 awit 03/24 results has different organism on different blood cx eugenie still remain + need wbc scan for avf eval per id if repeat covid test form 03/24 is neg will check echo bp bettter off norvasc, wbc normlal, afebrile no iv access Subjective Subjective PATIENT IS AWAKE, AAOX3, ON ROOM AIR, NO ACUTE DISTRESS NOTED. PATIENT IS MAKAH, LEGALLY BLIND. LEFT UPPER CHEST PACEMAKER NOTED. AV FISTULA ON RIGHT UPPER ARM INTACT. NO IV ACCESS, Patient on droplet precautions due to positive covid 19 testing Objective Last 24 Hour Vital Signs Date Time Temp Pulse Resp B/P (MAP) Pulse Ox O2 Delivery O2 Flow Rate FiO2 03/25/20 12:00 98.6 84 19 130/72 (91) 98 03/25/20 09:00 Room Air 03/25/20 08:00 98.4 80 20 125/68 (87) 98 03/25/20 04:00 98.3 69 20 104/63 (77) 94 03/25/20 00:00 98.2 78 20 113/65 (81) 99 03/24/20 21:00 Room Air 03/24/20 20:00 98.6 81 16 108/59 (75) 97 Intake and Output 03/24/20 03/25/20 19:00 07:00 Intake Total 500 ml Balance 500 ml Intake Oral 500 ml # Bowel Movements 2 2 Laboratory Tests Test 03/25/20 08:30 White Blood Count 6.8 K/UL (4.8-10.8) Red Blood Count 4.57 M/UL (4.20-5.40) Hemoglobin 11.2 G/DL (12.0-16.0) L Hematocrit 35.6 % (37.0-47.0) L Mean Corpuscular Volume 78 FL (80-99) L Mean Corpuscular Hemoglobin 24.6 PG (27.0-31.0) L Mean Corpuscular Hemoglobin Concent 31.6 G/DL (32.0-36.0) L Red Cell Distribution Width 19.1 % (11.6-14.8) H Platelet Count 183 K/UL (150-450) Mean Platelet Volume 6.7 FL (6.5-10.1) Neutrophils (%) (Auto) 51.5 % (45.0-75.0) Lymphocytes (%) (Auto) 27.9 % (20.0-45.0) Monocytes (%) (Auto) 12.6 % (1.0-10.0) H Eosinophils (%) (Auto) 6.5 % (0.0-3.0) H Basophils (%) (Auto) 1.5 % (0.0-2.0) Sodium Level 134 MMOL/L (136-145) L Potassium Level 4.5 MMOL/L (3.5-5.1) Chloride Level 95 MMOL/L (98-107) L Carbon Dioxide Level 24 MMOL/L (21-32) Anion Gap 15 mmol/L (5-15) Blood Urea Nitrogen 59 mg/dL (7-18) H Creatinine 10.4 MG/DL (0.55-1.30) H Estimat Glomerular Filtration Rate 4.6 mL/min (>60) Glucose Level 149 MG/DL (74-106) H Calcium Level 10.2 MG/DL (8.5-10.1) H Microbiology Date/Time Source Procedure Growth Status 03/22/20 17:00 Nasopharynx Coronavirus COVID-19 PCR ([facility]) - Final Complete Wilfredo Reyna MD Mar 25, 2020 16:07
--- NOTE | 2020-03-25 17:12 | Consultation ---
History of Present Illness General Date patient seen: Mar 25, 2020 Reason for Hospitalization: Dyspnea/Respdistress Present Illness HPI This is a 64-year-old female with multiple medical and psychiatric comorbidities who presented to [facility] approximately a month ago and has been admitted since under care and management. In the meantime she has had a few picklines in which she is removed with the most recent being placed approximately a week ago on the left upper arm that she removed today when agitated. Surgery called to evaluate and assist with care given patient currently has no access. Patient seen at bedside she is agitated and not very cooperative in care plan. She is not cooperating examination and does not cooperate and history obtaining. She is a loud and somewhat aggressive at times. Flails around in the bed. Refuses to wear her clothing. COVID positive identified on admission currently negative. Allergies: Coded Allergies: NO KNOWN ALLERGIES (Unverified Allergy, Unknown, 10/15/15) COVID-19 Screening Contact w/high risk pt: No Recent Travel to affected area: No Experienced COVID-19 symptoms?: Yes COVID-19 symptoms experienced: Fever (T>100.4F or >38C), Shortness of Breath Medication History Scheduled Amlodipine Besylate* (Amlodipine Besylate*), 10 MG ORAL DAILY, (Reported) Ascorbic Acid* (Vitamin C*), 250 MG ORAL DAILY, (Reported) Atorvastatin Calcium* (Lipitor*), 10 MG ORAL BEDTIME, (Reported) Cefepime Hcl/D5w (Cefepime-Dextrose 2 Gm/50 Ml), 500 MG IVPB Q24H, (Reported) Docusate Sodium (Dok), 100 MG PO BID, (Reported) Epoetin Jose De Jesus (Epogen), 20,000 UNIT SUBQ mon/sun/fri, (Reported) Gabapentin* (Gabapentin*), 300 MG ORAL THREE TIMES A DAY, (Reported) Hydralazine Hcl* (Hydralazine Hcl*), 25 MG ORAL EVERY 4 HOURS, (Reported) Lactobacillus Acidophilus (Acidophilus), 1 EACH PO BID, (Reported) Pantoprazole* (Pantoprazole*), 40 MG ORAL DAILY, (Reported) Pyridoxine Hcl* (Vitamin B-6*), 50 MG ORAL DAILY, (Reported) Thiamine Hcl* (Vitamin B-1*), 100 MG ORAL DAILY, (Reported) Zinc Gluconate (Zinc), 220 MG ORAL DAILY, (Reported) Scheduled PRN Acetaminophen (Tylenol), 650 MG ORAL Q4HR PRN for Mild Pain/Temp > 100.5, ( Reported) Clonidine Hcl* (Catapres*), 0.1 MG ORAL EVERY 6 HOURS PRN for For High Blood Pressure, (Reported) Diphenhydramine Hcl* (Benadryl*), 25 MG ORAL Q6H PRN for Itching, (Reported) Hydrocodone Bit/Acetaminophen 10-325* (Elizabeth 10-325*), 1 TAB ORAL Q4H PRN for For Pain, (Reported) Hydrocodone Bit/Acetaminophen 5-325* (Elizabeth 5-325 Tablet*), 1 TAB ORAL Q6H PRN for FOR PAIN, (Reported) Lorazepam* (Lorazepam*), 1 MG ORAL Q6HR PRN for For Anxiety, (Reported) Polyethylene Glycol 3350* (Miralax*), 17 GM ORAL DAILY PRN for Constipation, ( Reported) Zolpidem Tartrate* (Zolpidem Tartrate*), 2.5 MG ORAL BEDTIME PRN for Insomnia, ( Reported) Miscellaneous Medications Vancomycin Hcl/D5w (Vancomycin-D5w 500 Mg/100 Ml), 500 MG IV, (Reported) Patient History Limited by: medical condition History Provided By: Medical Record, PMD Healthcare decision maker Resuscitation status Full Code Advanced Directive on File Past Medical/Surgical History Past Medical/Surgical History: (1) Obesity (BMI 30-39.9) (2) COVID-19 virus infection (3) Anemia in chronic kidney disease (4) At high risk for aspiration (5) Lumbar radiculopathy (6) Acute respiratory failure (7) Coronary artery disease (8) Morbid obesity (9) Blindness of both eyes (10) Accelerated hypertension (11) ACS (acute coronary syndrome) (12) Acute bacterial bronchitis (13) Uncontrolled diabetes mellitus (14) Bleeding from dialysis shunt (15) Intractable back pain (16) Pancreatitis (17) Pyelonephritis (18) Iron deficiency (19) Intractable abdominal pain (20) ESRD (end stage renal disease) on dialysis (21) UTI (urinary tract infection) (22) Necrotic toes (23) Decubital ulcer (24) Hypoglycemia (25) Anemia (26) Diabetes (27) AMS (altered mental status) (28) Pacemaker (29) HTN (hypertension) (30) Bacteremia (31) Thrombocytopenia (32) Sepsis (33) Lymphopenia (34) ARDS (adult respiratory distress syndrome) Review of Systems Review of Symptoms General ROS: no weight loss or fever Psychological ROS: no depression or mood changes, no memory loss Ophthalmic ROS: no visual changes or eye irritation ENT ROS: no nasal congestion, hearing loss, dizziness Allergy and Immunology ROS: no allergic symptoms or urticaria Hematological and Lymphatic ROS: no swollen glands, unusual bleeding or bruising Endocrine ROS: no polyuria, polydipsia, weight changes, temperature intolerance Respiratory ROS: no cough, shortness of breath, or wheezing Cardiovascular ROS: no chest pain or dyspnea on exertion Gastrointestinal ROS: denies abdominal pain, bright red blood in stool. Musculoskeletal ROS: no myalgias or arthralgias Neurological ROS: no TIA or stroke symptoms Dermatological ROS: no new or changing skin lesions, rashes or pruritis patient denies but limited given her mental status Physical Exam Physical Exam General appearance: alert, cooperative, no distress, appears stated age Head: Normocephalic, without obvious abnormality, atraumatic Eyes: conjunctivae/corneas clear. PERRL, EOM's intact. Fundi benign Throat: Lips, mucosa, and tongue normal. Teeth and gums normal Neck: supple, symmetrical, trachea midline, no adenopathy, thyroid: not enlarged, symmetric, no tenderness/mass/nodules, no carotid bruit and no JVD Lungs: clear to auscultation bilaterally Heart: regular rate and rhythm, S1, S2 normal, no murmur, click, rub or gallop Abdomen: soft, non-tender. Bowel sounds normal. No masses, no organomegaly Extremities: extremities normal, atraumatic, no cyanosis or edema right upper arm fistula with pulse and thrill Pulses: 2+ and symmetric Skin: Skin color, texture, turgor normal. No rashes or lesions Neurologic: Grossly normal Last 24 Hour Vital Signs Date Time Temp Pulse Resp B/P (MAP) Pulse Ox O2 Delivery O2 Flow Rate FiO2 03/25/20 16:00 98.3 81 20 126/74 (91) 99 03/25/20 12:00 98.6 84 19 130/72 (91) 98 03/25/20 09:00 Room Air 03/25/20 08:00 98.4 80 20 125/68 (87) 98 03/25/20 04:00 98.3 69 20 104/63 (77) 94 03/25/20 00:00 98.2 78 20 113/65 (81) 99 03/24/20 21:00 Room Air 03/24/20 20:00 98.6 81 16 108/59 (75) 97 Intake and Output 03/24/20 03/25/20 19:00 07:00 Intake Total 500 ml Balance 500 ml Intake Oral 500 ml # Bowel Movements 2 2 Laboratory Tests Test 03/25/20 08:30 White Blood Count 6.8 K/UL (4.8-10.8) Red Blood Count 4.57 M/UL (4.20-5.40) Hemoglobin 11.2 G/DL (12.0-16.0) L Hematocrit 35.6 % (37.0-47.0) L Mean Corpuscular Volume 78 FL (80-99) L Mean Corpuscular Hemoglobin 24.6 PG (27.0-31.0) L Mean Corpuscular Hemoglobin Concent 31.6 G/DL (32.0-36.0) L Red Cell Distribution Width 19.1 % (11.6-14.8) H Platelet Count 183 K/UL (150-450) Mean Platelet Volume 6.7 FL (6.5-10.1) Neutrophils (%) (Auto) 51.5 % (45.0-75.0) Lymphocytes (%) (Auto) 27.9 % (20.0-45.0) Monocytes (%) (Auto) 12.6 % (1.0-10.0) H Eosinophils (%) (Auto) 6.5 % (0.0-3.0) H Basophils (%) (Auto) 1.5 % (0.0-2.0) Sodium Level 134 MMOL/L (136-145) L Potassium Level 4.5 MMOL/L (3.5-5.1) Chloride Level 95 MMOL/L (98-107) L Carbon Dioxide Level 24 MMOL/L (21-32) Anion Gap 15 mmol/L (5-15) Blood Urea Nitrogen 59 mg/dL (7-18) H Creatinine 10.4 MG/DL (0.55-1.30) H Estimat Glomerular Filtration Rate 4.6 mL/min (>60) Glucose Level 149 MG/DL (74-106) H Calcium Level 10.2 MG/DL (8.5-10.1) H Height (Feet): 5 Height (Inches): 7.00 Weight (Pounds): 211 Medications Current Medications Medications (Trade) Dose Ordered Sig/Josi Route PRN Reason Start Time Stop Time Status Last Admin Dose Admin Acetaminophen (Tylenol) 650 mg Q4H PRN GT fever 03/10/20 23:45 04/07/20 23:39 Acetaminophen/ Hydrocodone Bitart (Elizabeth 10/325) 1 tab Q4H PRN GT Moderate Pain (Pain Scale 4-6) 03/23/20 13:00 03/30/20 12:56 03/25/20 01:24 Albuterol/ Ipratropium (Combivent Respimat) 1 puff Q4H PRN INH Shortness of Breath 03/10/20 23:45 04/07/20 23:40 Atorvastatin Calcium (Lipitor) 10 mg BEDTIME NG 03/11/20 21:00 05/25/20 20:59 03/24/20 23:30 Chlorhexidine Gluconate (Jenny-Hex 2%) 1 applic DAILY@1999 TOPIC 03/23/20 20:00 06/21/20 19:59 Epoetin Jose De Jesus (Epoetin Jose De Jesus(ESRD on dialysis)) 8,000 unit SUN-SUN-SUN SUBQ 03/15/20 21:00 06/13/20 20:59 03/24/20 23:30 Ertapenem (INVanz) 0.5 gm Q24H IM 03/25/20 16:00 03/26/20 16:01 03/25/20 15:51 Heparin Sodium (Porcine) (Heparin 5000 units/ml) 5,000 units EVERY 12 HOURS SUBQ 03/11/20 09:00 04/10/20 08:59 03/25/20 08:36 Insulin Aspart (NovoLOG) Q6HR SUBQ 03/11/20 00:00 05/20/20 12:29 03/25/20 07:02 Lidocaine (Xylocaine 1% MPF 5ml) 3.2 ml Q24H INJ 03/25/20 16:00 03/26/20 16:01 Linezolid (Zyvox) 600 mg EVERY 12 HOURS ORAL 03/25/20 21:00 03/30/20 20:59 Lorazepam (Ativan) 1 mg Q6H PRN ORAL For Anxiety 03/21/20 21:30 03/28/20 21:29 03/23/20 10:01 Memantine (Namenda) 5 mg DAILY ORAL 03/22/20 09:00 04/21/20 08:59 03/25/20 08:36 Ondansetron HCl (Zofran) 4 mg Q6H PRN IVP Nausea & Vomiting 03/11/20 00:30 03/26/20 06:29 Pantoprazole (Protonix) 40 mg EVERY 12 HOURS ORAL 03/17/20 21:00 04/16/20 20:59 03/25/20 08:36 Pyridoxine HCl (Vitamin B6) 50 mg DAILY ORAL 03/18/20 09:00 04/17/20 08:59 03/25/20 08:36 Sevelamer Carbonate (Renvela) 1,600 mg TID NG 03/18/20 13:00 05/25/20 11:59 03/25/20 13:01 Thiamine HCl (Vitamin B1) 100 mg DAILY ORAL 03/18/20 09:00 04/17/20 08:59 03/25/20 09:18 Vancomycin HCl (Vanco rx to dose) 1 ea DAILY PRN MISC . 03/25/20 14:45 04/24/20 14:44 Vancomycin HCl 1 gm/Sodium Chloride 275 ml @ 183.708 mls/hr TuThSa PRN IVPB GIVE WITH HD ON HD DAYS 03/27/20 09:00 04/01/20 08:59 Vancomycin/Sodium Chloride 275 ml @ 137.5 mls/ hr ONCE PRN IVPB GIVE WITH HD 03/25/20 14:45 03/25/20 23:59 Assessment/Plan Problem List: (1) COVID-19 virus infection Assessment & Plan: positive on admission now negative ICD Codes: U07.1 - COVID-19 SNOMED: 989715128 (2) Bleeding from dialysis shunt Assessment & Plan: right upper arm fistula with thrill and proximal pulse dressings saturated but no active bleeding okay to use ICD Codes: T82.838A - Hemorrhage due to vascular prosthetic devices, implants and grafts, initial encounter SNOMED: 54347542 (3) Bacteremia Assessment & Plan: 64-year-old female with bacteremia currently admitted for some time [facility] has been on IV antibiotics per infectious disease and has had multiple peripheral lines in the past PICC line's which she is removed. She recently had a PICC line placed in the left upper arm approximately 03/19 which she now removed when she was agitated. She has been removing these lines for some time now and is not amenable to restraints or cognitive resuscitation. She currently is without IV access. Given her history and current condition and agitation appreciate psych input and medications. Unfortunately I do not believe she is safe for central line placement for 2 reasons 1 day very difficult to place central line in agitated state as she is not amenable to one being placed to she will likely remove this line immediately. I spoke with nephrology and ID and we have come up with a plan to keep patient on oral medications and for antibiotics we will switch to vancomycin which will get given with her dialysis which she is and has been tolerating. Will follow along if any changes will plan for insertion will attempt peripheral first before central. Okay to be without line for now. Thank you Doris oswald patient's care ICD Codes: R78.81 - Bacteremia SNOMED: [id number] Nestor Dyson Mar 25, 2020 17:12
--- NOTE | 2020-03-25 18:00 | Progress Note ---
DATE: 03/25/2020 SUBJECTIVE: This is a 64-year-old female patient with respiratory failure. She has got decline in cognition below baseline. She has got mood lability, confusion. That is why, her attending physician has requested daily psychiatric consultation for this patient. This patient has lumbar radiculopathy, anemia of chronic disease, obesity, acute renal failure, chronic renal disease, blindness. That is why, her attending physician has requested daily psychiatric consultation because this caused increased depression, altered mental status, and anxiety. MENTAL STATUS EXAMINATION: This is a 64-year-old female. Appearance is disheveled. Attitude, irritable and agitated. Affect, guarded and restricted. Intellect poor. Mood, depressed and anxious. Motor activity, psychomotor agitation. Insight and judgment is poor. DIAGNOSIS: Major depressive disorder, mild, recurrent with psychotic features, rule out dementia with psychosis. PLAN: Treat with Namenda 5 daily, Ativan 1 every 6 hours p.r.n. anxiety and agitation. Twenty minutes of behavioral management provided. Twenty minutes of insight-oriented psychotherapy to help her have understand of medical and psychiatric conditions so she will have better impulse control and behavior on the unit. Chart reviewed. Discussed with staff. Seen and assessed in the room. Iker Lawrence M.D. DR: BÁRBARA JOB#: [id number] CC:
--- NOTE | 2020-03-25 19:30 | NUR ---
HAND-OFF: Report given to NATHALIA Jimenez rn.
--- NOTE | 2020-03-25 19:30 | NUR ---
NURSE NOTES: received patient on bed, asleep. room air. no sob. with no iv access. was endorsed by the previous nurse that " she had a behavior of removing her gown, blanket and bedsheet". was endorsed, that there is a dialysis today. called the dialysis nurse, per young she will be here by 8-9pm. bed locked and in lowest position. call light and light button within easy reach. will continue plan of care.
[2020-03-25 20:00] VITALS: BP 105/64
[2020-03-25] MEDS: Dyna-Hex 2% Top Sol 2oz TOPIC SCH (20:00)
[2020-03-25] MEDS ORDERED: Dyna-Hex 2% Top Sol 2oz TOPIC ONE (20:00)
--- NOTE | 2020-03-25 21:30 | NUR ---
patient refused dialysis. charge nurse made aware
[2020-03-26] VITALS (7 sets, daily range): BP systolic 109–142; BP diastolic 42–89
--- NOTE | 2020-03-26 | NUR ---
NURSE NOTES: patient is shouting on the room " i want to sit on the wheelchair. i'm itchy. " wants to get out of the bed to sit on the wheelchair. sponge bath was done with the platform material handling supervisor. dressed patient with a gown but she took it out. refused to be dress up. patient still complaints of itchyness despite of the sponge bath. ativan was given by mouth as ordered. charge nurse made aware. Addendum: 03/26/20 at 0045 by Laurita Jimenez RN wrong entry. wrong date and time .
[2020-03-26] MEDS: LORazepam 1mg tab ORAL PRN ×3 (00:11→17:19)
--- NOTE | 2020-03-26 00:30 | NUR ---
patient is shouting on the room " i want to sit on the wheelchair. i'm itchy. " wants to get out of the bed to sit on the wheelchair. sponge bath was done with the seafood packer. dressed patient with a gown but she took it out. refused to be dress up. patient still complaints of itchyness despite of the sponge bath. ativan was given by mouth as ordered. charge nurse made aware. Addendum: 03/26/20 at 0046 by Laurita Jimenez RN NURSE NOTES:
--- NOTE | 2020-03-26 05:00 | NUR ---
paged dr. briscoe regarding the refusal awaiting for call back.
[2020-03-26] MEDS: NovoLOG Insulin Flexpen SUBQ SCH ×4 (06:00→17:22)
--- NOTE | 2020-03-26 06:00 | NUR ---
NURSE NOTES: paged dr. khan. awaiting for call back.
--- NOTE | 2020-03-26 07:29 | NUR ---
HAND-OFF: Report given to dylan samuel. Addendum: 03/26/20 at 3802 by Laurita Jimenez RN endorsed to follow up with md briscoe
--- NOTE | 2020-03-26 08:00 | NUR ---
NURSE NOTES received patient in bed,patient awake, alert, confused at times, agitated at this time,[place] Hearing, no no sign of distress, no IV access noted, on fall, aspiration precaution, refused HD today, will call HD nurse for dialysis,plan of care was discussed needs reinforcement,will continue to monitor patient condition dylan jackson
[2020-03-26] MEDS: Pyridoxine 50mg tab ORAL SCH (08:24)
[2020-03-26] MEDS: Thiamine 100mg tab ORAL SCH (08:24)
[2020-03-26] MEDS: Memantine 5 MG TAB ORAL SCH (08:24)
--- NOTE | 2020-03-26 08:25 | NUR ---
NURSE NOTES PATIENT VERY AGITATED, ATIVAN GIVEN ORDERED, NATHALIA HEALY
[2020-03-26] MEDS: Heparin 5000 units/ml inj SUBQ SCH ×2 (08:34→21:00)
[2020-03-26] MEDS: Renvela 800mg Pkt NG SCH ×3 (08:34→17:20)
--- NOTE | 2020-03-26 08:59 | Nephrology Progress Note ---
Assessment/Plan Problem List: (1) Acute respiratory failure (2) ESRD (end stage renal disease) on dialysis (3) UTI (urinary tract infection) (4) Patient is Jew (5) Pacemaker (6) Diabetes (7) Obesity (BMI 30-39.9) Assessment ARDS (adult respiratory distress syndrome) Fever Sepsis UTI (urinary tract infection) Respiratory failure, intubated on ventilator Thrombocytopenia Lymphopenia End stage renal disease on dialysis. Has a right upper arm dialysis fistula as Acces . Getting dialysis Sunday. morbid obesity Anemia / Jehova's witness CAD previous stent HTN- hypertensive urgency upon arrival to [facility]. s/p AVG DM 2 bilateral eye blindness h/o CHF Pacemaker Plan RN reports that the dialysis nurse came to dialyze patient last night late and the patient refused dialysis She is scheduled for dialysis again today Today's labs still not drawn most likely the patient refused on Zyvox and cefepime and daptomycin There is an issue with patient's IV line. She has pulled out previous PICC line's. Discussed with RN Previously Patient extubated March 04, and remains extubated, now in MedSurg floor Patient positive for Covid 19 Per ID and pulmonary, Last dialyzed March 23 next dialysis March 25 EPO, thiamin and b6 Phos binders NGT feeding per consultants Remains full code at this time Subjective ROS Limited/Unobtainable: No Constitutional: Reports: malaise Objective Objective Last 24 Hour Vital Signs Date Time Temp Pulse Resp B/P (MAP) Pulse Ox O2 Delivery O2 Flow Rate FiO2 03/26/20 04:00 97.8 74 20 138/78 (98) 95 03/26/20 00:00 97.2 82 20 122/80 (94) 97 03/25/20 21:00 Room Air 03/25/20 20:00 98.2 84 20 105/64 (78) 96 03/25/20 16:00 98.3 81 20 126/74 (91) 99 03/25/20 12:00 98.6 84 19 130/72 (91) 98 03/25/20 09:00 Room Air Intake and Output 03/25/20 03/26/20 19:00 07:00 Intake Total 1000 ml 100 ml Balance 1000 ml 100 ml Intake Oral 1000 ml 100 ml # Voids 2 # Bowel Movements 3 1 Height (Feet): 5 Height (Inches): 7.00 Weight (Pounds): 210 General Appearance: no apparent distress Cardiovascular: tachycardia - Mid 80s Abdomen: other - Obese Objective No change Bryan Hunter MD March 26, 2020 08:59
--- NOTE | 2020-03-26 09:09 | General Progress Note ---
Assessment/Plan Problem List: (1) Obesity (BMI 30-39.9) ICD Codes: E66.9 - Obesity, unspecified SNOMED: 417577790, 004635180 (2) COVID-19 virus infection ICD Codes: U07.1 - COVID-19 SNOMED: 687164189 (3) Acute respiratory failure ICD Codes: J96.00 - Acute respiratory failure, unspecified whether with hypoxia or hypercapnia SNOMED: 13984111 (4) Blindness of both eyes ICD Codes: H54.0 - Blindness SNOMED: 091779637 (5) ESRD (end stage renal disease) on dialysis ICD Codes: N18.6 - End stage renal disease; Z99.2 - Dependence on renal dialysis SNOMED: 855937226 (6) Anemia ICD Codes: D64.9 - Anemia, unspecified SNOMED: 370963753 (7) Diabetes ICD Codes: E11.9 - Type 2 diabetes mellitus without complications SNOMED: 39329666 (8) AMS (altered mental status) ICD Codes: R41.82 - Altered mental status, unspecified SNOMED: 911343324 Status: unchanged Assessment/Plan: vent abx dialysis cbc bmp am ltach eval Subjective Constitutional: Reports: weakness Allergies: Coded Allergies: NO KNOWN ALLERGIES (Unverified Allergy, Unknown, 10/15/15) All Systems: reviewed and negative except above Subjective lethargic sleepy Objective Last 24 Hour Vital Signs Date Time Temp Pulse Resp B/P (MAP) Pulse Ox O2 Delivery O2 Flow Rate FiO2 03/26/20 04:00 97.8 74 20 138/78 (98) 95 03/26/20 00:00 97.2 82 20 122/80 (94) 97 03/25/20 21:00 Room Air 03/25/20 20:00 98.2 84 20 105/64 (78) 96 03/25/20 16:00 98.3 81 20 126/74 (91) 99 03/25/20 12:00 98.6 84 19 130/72 (91) 98 Intake and Output 03/25/20 03/26/20 19:00 07:00 Intake Total 1000 ml 100 ml Balance 1000 ml 100 ml Intake Oral 1000 ml 100 ml # Voids 2 # Bowel Movements 3 1 Height (Feet): 5 Height (Inches): 7.00 Weight (Pounds): 210 General Appearance: lethargic EENT: normal ENT inspection Neck: normal inspection Cardiovascular: normal rate, regular rhythm Respiratory/Chest: no respiratory distress, no accessory muscle use Extremities: normal inspection Skin: normal pigmentation Roderick Henning DO March 26, 2020 09:09
--- NOTE | 2020-03-26 09:56 | General Progress Note ---
Assessment/Plan Status: unchanged Assessment/Plan: 1. Diabetes. 2. End-stage renal disease, on hemodialysis. 3. Chronic anemia. 4. Obesity. 5. Gastritis. 6. Kidney stones. 7. Abdominal hernia. 8. Hiatal hernia. 9. Cardiomegaly. 10. Hypercholesterolemia. 11. Hypertension. 12. Bilateral eye blindness. 13. Coronary artery disease and cardiac stent placement. 14. History of EtOH and cocaine abuse in the past. 15. Dysphagia abd CT reviewed COVID positive swallow eval appreciated on diet fu cardiology and Id recs HD per nephrology fu labs recent labs and notes reviewed hold GI procedures for now Subjective ROS Limited/Unobtainable: No Allergies: Coded Allergies: NO KNOWN ALLERGIES (Unverified Allergy, Unknown, 10/15/15) Objective Last 24 Hour Vital Signs Date Time Temp Pulse Resp B/P (MAP) Pulse Ox O2 Delivery O2 Flow Rate FiO2 03/26/20 08:50 Room Air 03/26/20 08:20 98.1 93 20 129/67 (87) 96 03/26/20 04:00 97.8 74 20 138/78 (98) 95 03/26/20 00:00 97.2 82 20 122/80 (94) 97 03/25/20 21:00 Room Air 03/25/20 20:00 98.2 84 20 105/64 (78) 96 03/25/20 16:00 98.3 81 20 126/74 (91) 99 03/25/20 12:00 98.6 84 19 130/72 (91) 98 Intake and Output 03/25/20 03/26/20 19:00 07:00 Intake Total 1000 ml 100 ml Balance 1000 ml 100 ml Intake Oral 1000 ml 100 ml # Voids 2 # Bowel Movements 3 1 Height (Feet): 5 Height (Inches): 7.00 Weight (Pounds): 210 General Appearance: no apparent distress EENT: normal ENT inspection Neck: supple Cardiovascular: normal rate Respiratory/Chest: decreased breath sounds Abdomen: normal bowel sounds, non tender, soft Extremities: non-tender Jamison Garcia MD March 26, 2020 09:56
--- NOTE | 2020-03-26 10:08 | NUR ---
nurse notes notified Dr Hampton regarding patient safety issue, with order noted and carried out, bilateral soft wrist restraint started, 4 P's , hourly rounding, fall precaution more encouraged, call light w/n reach, both side rails up for safety, needs met and anticipated dylan gavin
--- NOTE | 2020-03-26 10:29 | NUR ---
*-*DISCHARGE PLANNING*-* PATIENT HSA BEEN REFERRED TO: P: [phone] F: [phone] ~~~~~~~~~~~~~~CLINICALS FAXED~~~~~~~~~~~~~~~~~~~~~~~~~~~~~~
--- NOTE | 2020-03-26 11:05 | NUR ---
*-*DISCHARGE PLANNING*-* PATIENT HAS BEEN REFERRED TO: JIMENA WHARTON/MARISSA OMALELY P: [phone] F: [phone] S/[facility], WHO STATED THEY ARE NOT ACCEPTING ANY PATIENTS FROM [facility] AND [facility] POSITIVE PATIENTS.
[2020-03-26] MEDS: HYDROcodone/Acetamin 10/325 tab GT PRN (11:25)
--- NOTE | 2020-03-26 11:42 | Surgery Progress Note ---
Surgery Progress Note Subjective Additional Comments agitated does not want HD today and argumentative with HD nurse Objective Last 24 Hour Vital Signs Date Time Temp Pulse Resp B/P (MAP) Pulse Ox O2 Delivery O2 Flow Rate FiO2 03/26/20 08:50 Room Air 03/26/20 08:20 98.1 93 20 129/67 (87) 96 03/26/20 04:00 97.8 74 20 138/78 (98) 95 03/26/20 00:00 97.2 82 20 122/80 (94) 97 03/25/20 21:00 Room Air 03/25/20 20:00 98.2 84 20 105/64 (78) 96 03/25/20 16:00 98.3 81 20 126/74 (91) 99 03/25/20 12:00 98.6 84 19 130/72 (91) 98 I&O Intake and Output 03/25/20 03/26/20 19:00 07:00 Intake Total 1000 ml 100 ml Balance 1000 ml 100 ml Intake Oral 1000 ml 100 ml # Voids 2 # Bowel Movements 3 1 Dressing: other Wound: other Drains: other Cardiovascular: RSR Respiratory: decreased breath sounds Abdomen: soft, present bowel sounds Extremities: no cyanosis Plan Problems: (1) COVID-19 virus infection Assessment & Plan: positive on admission now negative (2) Bleeding from dialysis shunt Assessment & Plan: right upper arm fistula with thrill and proximal pulse dressings saturated but no active bleeding okay to use (3) Bacteremia Assessment & Plan: 64-year-old female with bacteremia currently admitted for some time [facility] has been on IV antibiotics per infectious disease and has had multiple peripheral lines in the past PICC line's which she is removed. She recently had a PICC line placed in the left upper arm approximately 03/19 which she now removed when she was agitated. She has been removing these lines for some time now and is not amenable to restraints or cognitive resuscitation. She currently is without IV access. Given her history and current condition and agitation appreciate psych input and medications. Unfortunately I do not believe she is safe for central line placement for 2 reasons 1 day very difficult to place central line in agitated state as she is not amenable to one being placed to she will likely remove this line immediately. I spoke with nephrology and ID and we have come up with a plan to keep patient on oral medications and for antibiotics we will switch to vancomycin which will get given with her dialysis which she is and has been tolerating. Will follow along if any changes will plan for insertion will attempt peripheral first before central. Okay to be without line for now. Thank you Doris oswald patient's care RcNestor duncan March 26, 2020 11:42
--- NOTE | 2020-03-26 11:48 | NUR ---
COMBINATION WELDER APPRENTICE NOTE DR LAN INFORMED THAT PATIENT WAS DENIED AT [facility]. INSTRUCTED TO REFER PATIENT TO [facility]. NOTED AND CARRIED OUT.
--- NOTE | 2020-03-26 12:07 | Pulmonology Progress Note ---
Assessment/Plan Problems: (1) Sepsis (2) Bacteremia (3) COVID-19 virus infection (4) Accelerated hypertension (5) At high risk for aspiration (6) ESRD (end stage renal disease) on dialysis (7) Diabetes (8) Patient is Bahai (9) Morbid obesity Assessment/Plan pt was found on the floor, with no visible injury, doesn't have any pain. still confused BC still positive keeps pulling PICC lines. off NG tube swallow study done, will need Barium swallow, on renal diet for now on isolation afebrile in the last few days f/u cultures respiratory treatment Subjective ROS Limited/Unobtainable: No Constitutional: Reports: no symptoms HEENT: Repors: no symptoms Respiratory: Reports: no symptoms Allergies: Coded Allergies: NO KNOWN ALLERGIES (Unverified Allergy, Unknown, 10/15/15) All Systems: reviewed and negative except above Objective Last 24 Hour Vital Signs Date Time Temp Pulse Resp B/P (MAP) Pulse Ox O2 Delivery O2 Flow Rate FiO2 03/26/20 08:50 Room Air 03/26/20 08:20 98.1 93 20 129/67 (87) 96 03/26/20 04:00 97.8 74 20 138/78 (98) 95 03/26/20 00:00 97.2 82 20 122/80 (94) 97 03/25/20 21:00 Room Air 03/25/20 20:00 98.2 84 20 105/64 (78) 96 03/25/20 16:00 98.3 81 20 126/74 (91) 99 Intake and Output 03/25/20 03/26/20 19:00 07:00 Intake Total 1000 ml 100 ml Balance 1000 ml 100 ml Intake Oral 1000 ml 100 ml # Voids 2 # Bowel Movements 3 1 Objective swallow study done, results reviewed General Appearance: WD/WN, other - morbidly obese AA female HEENT: normocephalic, atraumatic Respiratory/Chest: chest wall non-tender, normal breath sounds Cardiovascular: normal peripheral pulses, normal rate, other - LUE PICC intact Abdomen: normal bowel sounds, soft, non tender Genitourinary: normal external genitalia Extremities: no clubbing, other - trace edema BLE, RUE AV shunt + bruit/thrill Skin: no rash Microbiology Date/Time Source Procedure Growth Status 03/24/20 04:59 Blood Blood Culture - Preliminary NO GROWTH AFTER 24 HOURS Resulted 03/24/20 04:40 Blood Blood Culture - Preliminary NO GROWTH AFTER 24 HOURS Resulted Current Medications Medications (Trade) Dose Ordered Sig/Josi Route PRN Reason Start Time Stop Time Status Last Admin Dose Admin Acetaminophen (Tylenol) 650 mg Q4H PRN GT fever 03/10/20 23:45 04/07/20 23:39 Acetaminophen/ Hydrocodone Bitart ([place]addy 10/325) 1 tab Q4H PRN GT Moderate Pain (Pain Scale 4-6) 03/23/20 13:00 03/30/20 12:56 03/26/20 11:25 Albuterol/ Ipratropium (Combivent Respimat) 1 puff Q4H PRN INH Shortness of Breath 03/10/20 23:45 04/07/20 23:40 Atorvastatin Calcium (Lipitor) 10 mg BEDTIME NG 03/11/20 21:00 05/25/20 20:59 03/25/20 21:30 Chlorhexidine Gluconate (Jenny-Hex 2%) 1 applic DAILY@1999 TOPIC 03/23/20 20:00 06/21/20 19:59 Epoetin Jose De Jesus (Epoetin Jose De Jesus(ESRD on dialysis)) 8,000 unit SUN-SUN-SUN SUBQ 03/15/20 21:00 06/13/20 20:59 03/24/20 23:30 Ertapenem (INVanz) 0.5 gm Q24H IM 03/25/20 16:00 03/26/20 16:01 03/25/20 15:51 Heparin Sodium (Porcine) (Heparin 5000 units/ml) 5,000 units EVERY 12 HOURS SUBQ 03/11/20 09:00 04/10/20 08:59 03/25/20 08:36 Insulin Aspart (NovoLOG) Q6HR SUBQ 03/11/20 00:00 05/20/20 12:29 03/26/20 11:32 Lidocaine (Xylocaine 1% MPF 5ml) 3.2 ml Q24H INJ 03/25/20 16:00 03/26/20 16:01 Linezolid (Zyvox) 600 mg EVERY 12 HOURS ORAL 03/25/20 21:00 03/30/20 20:59 03/26/20 08:24 Lorazepam (Ativan) 1 mg Q6H PRN ORAL For Anxiety 03/21/20 21:30 03/28/20 21:29 03/26/20 08:25 Memantine (Namenda) 5 mg DAILY ORAL 03/22/20 09:00 04/21/20 08:59 03/26/20 08:24 Pantoprazole (Protonix) 40 mg EVERY 12 HOURS ORAL 03/17/20 21:00 04/16/20 20:59 03/26/20 08:24 Pyridoxine HCl (Vitamin B6) 50 mg DAILY ORAL 03/18/20 09:00 04/17/20 08:59 03/26/20 08:24 Sevelamer Carbonate (Renvela) 1,600 mg TID NG 03/18/20 13:00 05/25/20 11:59 03/26/20 08:34 Thiamine HCl (Vitamin B1) 100 mg DAILY ORAL 03/18/20 09:00 04/17/20 08:59 03/26/20 08:24 Vancomycin HCl (Vanco rx to dose) 1 ea DAILY PRN MISC . 03/25/20 14:45 04/24/20 14:44 Vancomycin HCl 1 gm/Sodium Chloride 275 ml @ 183.708 mls/hr TuThSa PRN IVPB GIVE WITH HD ON HD DAYS 03/27/20 09:00 04/01/20 08:59 Meghana Murillo MD March 26, 2020 12:07
--- NOTE | 2020-03-26 12:10 | NUR ---
*-*DISCHARGE PLANNING*-* PATIENT HAS BEEN REFERRED TO: [facility] P: [phone] F: [phone] ~~~~~~~~~~~~~~CLINICALS FAXED~~~~~~~~~~~~~~~~~~~~
--- NOTE | 2020-03-26 12:55 | NUR ---
*-*DISCHARGE PLANNING*-* PATIENT HAS BEEN REFERRED TO: [facility] P: [phone] S/W ERI[facility], WILL NOT ACCEPT PATIENT AT THIS MOMENT.
--- NOTE | 2020-03-26 14:20 | NUR ---
NURSE NOTES Dialysis done by HD nurse with 2 L output noted tolerated the procedure well, patient calm and quiet at this time dylan jackson
--- NOTE | 2020-03-26 14:54 | Infectious Diseases Prog Note ---
Assessment/Plan Assessment/Plan The patient is a 64-year-old female with Proteus bacteremia Persistent/recurrent S.epi and VRE bactereima (despite 6 weeks of treatment)- highly suspicious for endovascular source (ie AVF infection, endocarditis) 03/09 Bcx 02/27 VRE, S. epi, 03/10 Bcx 02/27 P . mirabilis, probable amp-C; VRE, CONS; 03/11 Bcx 2/2 sets S.epi; 03/15 12/30 S. epi, 1/ VRE; 03/16 Bcx 3/S.epi, 1/ VRE, 03/20 Bcx 12/30 GPC clusters; 03/24 Bcx NTD -CT abd/p: Cardiomegaly. Evidence of left ventricular muscular hypertrophy. Bilateral lower lobe and inferior lingular ill-defined parenchymal infiltrates, likely pneumonia but could indicate a component of pulmonary edema. Incidental findings as noted, including right renal cyst, evidence of prior hysterectomy, pacemaker, PICC, coronary stents and calcifications Enlarged heterogeneous thyroid. No acute abdominal process cholelithiasis and/ or gallbladder sludge. Diastasis of the rectus abdominis tendon and small fat- containing ventral hernia, also demonstrated previously. Confirmed COVID-19. 02/19 SARS-CoV PCR positive. -03/22 COVID neg x1 -1st repeat neg 03/11 ; 2nd repeat is positive 03/13 Pneumonia Mild leukocytosis, SP -03/09 u/a wbc 40-60, nit neg, leuk +3 Fever, recurrent, SP VDRF- sp self extubation 03/05, now on at RA - likely 2/2 COVID, less likely active bacterial superinfection since pt just completed empiric course of antibacterial therapy and sputum cx NG -03/07 CXR: Persistent vascular congestion and suspected interstitial edema.Cardiomegaly with pacer. - 03/01 CXR: Worsening bilateral hazy parenchymal infiltrates, versus edema - 02/20 CXR: Mild pulmonary vascular congestion with subtle bilateral haziness, not significantly changed.Possible tiny pleural effusions. Cardiomegaly. - Bcx ngtd - sp cx normal gui Less likely UTI u/a wbc tnct, nit +, leuk +3; ucx cindy(colonizer) Hx of positive blood culture CONS ,persistent; recurrent 02/04 BCx: CoNS 01/30 Bc: (1/2)CoNS and Citrobacter 01/27 , 3/9 Bc: CoNS - (outside facility, # of the +ve cultures are not clear) A 2D echo from outside facility did not show any evidence of vegetation as per [facility] pt is high risk for CLAY: ( last admission ) Diabetes. CHF. ESRD. Hypertension. Obesity. 03/08 SP PICC Line placement; removed on 03/15 and new one placed PLAN: Continue IM Ertapenem #2 (abx d #14/14)for Proteus bacteremia (lost IV access COntinue IV Vancomycin #2 (abx d#14)- -will dose IV Vancomycin via AVF during HD days given pt lost IV access (had lost it multiple times already, hard stick) Continue Linezolid #9 for synergisms -monitor CPK, platelets 03/24 SP Cefepime #10, Daptomycin #13 03/15 SP Meropenem #4 03/12/20 SP IV Vancomycin #2 03/08 SP vancomycin, day # ? ( will Rx for probable SBE) 02/27 SP plaquenil+azithromycin #5 02/25 SP Ertapenem #8 02/24 DC amikacin #6 ONCE COVID neg x2, will order WBC scan and CLAY to evalaute for persistent bacteremia Monitor CBC. Monitor BMP. Monitor cultures (blood, Sp ) COVID19 isolation as 2nd repeat test is still positive f/u 2d Echo- will likely need CLAY will need WBC scan to eval for AVF infection f/u Bcx x2 Repeat COvid x2 JAE RN, Dr Hunter, Dr Murillo, Dr Henning and pharmacist. Subjective Allergies: Coded Allergies: NO KNOWN ALLERGIES (Unverified Allergy, Unknown, 10/15/15) Subjective afebrile repeat Bcx NTD Objective Vital Signs Last 24 Hour Vital Signs Date Time Temp Pulse Resp B/P (MAP) Pulse Ox O2 Delivery O2 Flow Rate FiO2 03/26/20 12:00 97.4 61 19 122/42 (68) 95 03/26/20 10:02 98.0 81 20 137/80 (99) 99 03/26/20 08:50 Room Air 03/26/20 08:20 98.1 93 20 129/67 (87) 96 03/26/20 04:00 97.8 74 20 138/78 (98) 95 03/26/20 00:00 97.2 82 20 122/80 (94) 97 03/25/20 21:00 Room Air 03/25/20 20:00 98.2 84 20 105/64 (78) 96 03/25/20 16:00 98.3 81 20 126/74 (91) 99 Height (Feet): 5 Height (Inches): 7.00 Weight (Pounds): 210 Objective not seen to limit COVID19 exposure Microbiology Date/Time Source Procedure Growth Status 03/24/20 04:59 Blood Blood Culture - Preliminary NO GROWTH AFTER 24 HOURS Resulted 03/24/20 04:40 Blood Blood Culture - Preliminary NO GROWTH AFTER 24 HOURS Resulted Current Medications Medications (Trade) Dose Ordered Sig/Josi Route PRN Reason Start Time Stop Time Status Last Admin Dose Admin Acetaminophen (Tylenol) 650 mg Q4H PRN GT fever 03/10/20 23:45 04/07/20 23:39 Acetaminophen/ Hydrocodone Bitart ([place] 10/325) 1 tab Q4H PRN GT Moderate Pain (Pain Scale 4-6) 03/23/20 13:00 03/30/20 12:56 03/26/20 11:25 Albuterol/ Ipratropium (Combivent Respimat) 1 puff Q4H PRN INH Shortness of Breath 03/10/20 23:45 04/07/20 23:40 Atorvastatin Calcium (Lipitor) 10 mg BEDTIME NG 03/11/20 21:00 05/25/20 20:59 03/25/20 21:30 Chlorhexidine Gluconate (Jenny-Hex 2%) 1 applic DAILY@1999 TOPIC 03/23/20 20:00 06/21/20 19:59 Epoetin Jose De Jesus (Epoetin Jos Ede Jesus(ESRD on dialysis)) 6,000 unit SUN-WED-SUN SUBQ 03/26/20 21:00 06/24/20 20:59 Ertapenem (INVanz) 0.5 gm Q24H IM 03/25/20 16:00 03/26/20 16:01 03/25/20 15:51 Heparin Sodium (Porcine) (Heparin 5000 units/ml) 5,000 units EVERY 12 HOURS SUBQ 03/11/20 09:00 04/10/20 08:59 03/25/20 08:36 Insulin Aspart (NovoLOG) Q6HR SUBQ 03/11/20 00:00 6/25/20 12:29 03/26/20 11:32 Lidocaine (Xylocaine 1% MPF 5ml) 3.2 ml Q24H INJ 03/25/20 16:00 03/26/20 16:01 Linezolid (Zyvox) 600 mg EVERY 12 HOURS ORAL 03/25/20 21:00 03/30/20 20:59 03/26/20 08:24 Lorazepam (Ativan) 1 mg Q6H PRN ORAL For Anxiety 03/21/20 21:30 03/28/20 21:29 03/26/20 08:25 Memantine (Namenda) 5 mg DAILY ORAL 03/22/20 09:00 04/21/20 08:59 03/26/20 08:24 Pantoprazole (Protonix) 40 mg EVERY 12 HOURS ORAL 03/17/20 21:00 04/16/20 20:59 03/26/20 08:24 Pyridoxine HCl (Vitamin B6) 50 mg DAILY ORAL 03/18/20 09:00 04/17/20 08:59 03/26/20 08:24 Sevelamer Carbonate (Renvela) 1,600 mg TID NG 03/18/20 13:00 05/25/20 11:59 03/26/20 12:24 Thiamine HCl (Vitamin B1) 100 mg DAILY ORAL 03/18/20 09:00 04/17/20 08:59 03/26/20 08:24 Vancomycin HCl (Vanco rx to dose) 1 ea DAILY PRN MISC . 03/25/20 14:45 04/24/20 14:44 Vancomycin HCl 1 gm/Sodium Chloride 275 ml @ 183.708 mls/hr TuThSa PRN IVPB GIVE WITH HD ON HD DAYS 03/27/20 09:00 04/01/20 08:59 Susi Vanegas M.D. March 26, 2020 14:54
[2020-03-26] MEDS: Lidocaine 1% MPF 10mg/ml 5ml INJ SCH (16:00)
[2020-03-26] MEDS: Ertapenem (INVanz) 1gm Inj IM SCH (16:21)
--- NOTE | 2020-03-26 16:38 | NUR ---
CASE MANAGEMENT:REVIEW SI;SEPSIS. ACUTE RESPIRATORY FAILURE. ESRD ON HD. COVID-19 INFECTION (REPEAT 03/22/20 NOT DETECTED) 98.1 93 20 138/78 95% ON RA NA 134 CL 95 BUN 59 CR 10.4 CA 10.2 IS;ZYVOX PO Q12 HRS ERTAPENEM IM Q24 HRS BECKY HEX TOP QD VANCOMYCIN IV QD PRN PROTONIX PO Q12 HRS MED SURG STATUS DCP;FROM [facility]
--- NOTE | 2020-03-26 19:25 | NUR ---
NURSE NOTES: Receive pt on the bed alert and oriented x3 , no sob, no complain of pain, vitals are stable and no fever. pt is on room air . pt is covid 19 potsitve and pt is on isolation for covid 19.pt had dialysis earlier and they took 2L . Bed in the lower position, alarm on, and locked. Call light within reach. We will keep monitoring
[2020-03-26] MEDS: Dyna-Hex 2% Top Sol 2oz TOPIC SCH (20:00)
[2020-03-26] MEDS ORDERED: Epoetin Alfa-EPBX(ESRD on dialysis)3000 units/ml vial SUBQ SCH (21:00)
[2020-03-27] VITALS: BP 156/95
[2020-03-27] MEDS: NovoLOG Insulin Flexpen SUBQ SCH ×4 (00:14→17:56)
[2020-03-27 04:00] VITALS: BP 118/60
--- NOTE | 2020-03-27 07:15 | NUR ---
HAND-OFF: Report given to NATHALIA Castro. endorsed the pt is fall risk
--- NOTE | 2020-03-27 07:21 | General Progress Note ---
Assessment/Plan Status: unchanged Assessment/Plan: 1. Diabetes. 2. End-stage renal disease, on hemodialysis. 3. Chronic anemia. 4. Obesity. 5. Gastritis. 6. Kidney stones. 7. Abdominal hernia. 8. Hiatal hernia. 9. Cardiomegaly. 10. Hypercholesterolemia. 11. Hypertension. 12. Bilateral eye blindness. 13. Coronary artery disease and cardiac stent placement. 14. History of EtOH and cocaine abuse in the past. 15. Dysphagia abd CT reviewed COVID positive swallow eval appreciated on diet fu cardiology and Id recs HD per nephrology fu labs recent labs and notes reviewed hold GI procedures for now Subjective ROS Limited/Unobtainable: Yes Allergies: Coded Allergies: NO KNOWN ALLERGIES (Unverified Allergy, Unknown, 10/15/15) Objective Last 24 Hour Vital Signs Date Time Temp Pulse Resp B/P (MAP) Pulse Ox O2 Delivery O2 Flow Rate FiO2 03/27/20 04:00 96.2 76 16 118/60 (79) 99 03/27/20 00:00 96.9 73 20 156/95 (115) 94 03/26/20 21:00 Room Air 03/26/20 20:00 96.9 79 20 142/89 (106) 94 03/26/20 16:00 97.2 90 20 117/67 (84) 95 03/26/20 12:00 97.4 61 19 122/42 (68) 95 03/26/20 10:02 98.0 81 20 137/80 (99) 99 03/26/20 08:50 Room Air 03/26/20 08:20 98.1 93 20 129/67 (87) 96 Intake and Output 03/26/20 03/27/20 19:00 07:00 Intake Total 440 ml Output Total 2000 ml Balance -1560 ml Intake Oral 440 ml Hemodialysis UF 2000 ml # Bowel Movements 2 1 Height (Feet): 5 Height (Inches): 7.00 Weight (Pounds): 210 General Appearance: no apparent distress EENT: normal ENT inspection Neck: supple Cardiovascular: normal rate Respiratory/Chest: decreased breath sounds Abdomen: normal bowel sounds, non tender, soft Extremities: non-tender Jamison Garcia MD March 27, 2020 07:21
--- NOTE | 2020-03-27 07:30 | NUR ---
NURSE NOTES: Received report from NATHALIA Cho. Patient blind and [employer] [place]. On room air, no signs of distress or labored breathing. No IV access, MD aware. Bilateral soft wrist restraints on. Bed alarm on. Bed in lowest position. Will continue with plan of care.
[2020-03-27 08:00] VITALS: BP 121/63
--- NOTE | 2020-03-27 08:58 | NUR ---
RD ASSESSMENT & RECOMMENDATIONS SEE CARE ACTIVITY FOR COMPLETE ASSESSMENT DAILY ESTIMATED NEEDS: Needs based on obesity, pulmonary, HD, wound 78kg abw 20-25 kcals/kg 8434-0179 total kcals 1.25-1.8 g protein/kg 98-140 g total protein per MD, pt on HD NUTRITION DIAGNOSIS: * Swallowing difficulty R/T respiratory status as evidenced by pt orally intubated, now s/p extubation, s/p pulling out NGT, now on pureed moist texture w/ NTL. * Altered nutrition related lab values R/T ESRD as evidenced by elev creat (9.0), elev BNP (>72704->97602), elev phos (6.0-> wnl->5.5-> wnl). CURRENT DIET:Renal, pureed moist w/ NTL + Nepro BID PO DIET RECOMMENDATIONS: RENAL + CCHO MED/ texture per [employer] ADDITIONAL RECOMMENDATIONS: 1) Calibrated bedscale wt for accurate CBW- daily wts for ESRD dx wts in the 210's vs 240's a few week ago 2) Monitor BGs closely, for hypoglycemia h/o frequent hypoglycemia during prev admissions 3) Monitor PO intake closely: appears to be improved at this time -> monitor need to decrease Nepro HPN 4) Add Nephrovite x 1 for skin integrity
[2020-03-27] MEDS ORDERED: Vancomycin 1 GM in NS 275 ML IVPB PRN (09:00)
--- NOTE | 2020-03-27 09:01 | General Progress Note ---
Assessment/Plan Problem List: (1) Obesity (BMI 30-39.9) ICD Codes: E66.9 - Obesity, unspecified SNOMED: 140822666, 887021417 (2) COVID-19 virus infection ICD Codes: U07.1 - COVID-19 SNOMED: 304558223 (3) Acute respiratory failure ICD Codes: J96.00 - Acute respiratory failure, unspecified whether with hypoxia or hypercapnia SNOMED: 07894365 (4) Blindness of both eyes ICD Codes: H54.0 - Blindness SNOMED: 410923674 (5) ESRD (end stage renal disease) on dialysis ICD Codes: N18.6 - End stage renal disease; Z99.2 - Dependence on renal dialysis SNOMED: 749330749 (6) Anemia ICD Codes: D64.9 - Anemia, unspecified SNOMED: 873039899 (7) Diabetes ICD Codes: E11.9 - Type 2 diabetes mellitus without complications SNOMED: 09225858 (8) AMS (altered mental status) ICD Codes: R41.82 - Altered mental status, unspecified SNOMED: 142466729 Status: unchanged Assessment/Plan: vent abx dialysis cbc bmp am ltach eval Subjective Constitutional: Reports: weakness Allergies: Coded Allergies: NO KNOWN ALLERGIES (Unverified Allergy, Unknown, 10/15/15) All Systems: reviewed and negative except above Subjective lethargic sleepy Objective Last 24 Hour Vital Signs Date Time Temp Pulse Resp B/P (MAP) Pulse Ox O2 Delivery O2 Flow Rate FiO2 03/27/20 04:00 96.2 76 16 118/60 (79) 99 03/27/20 00:00 96.9 73 20 156/95 (115) 94 03/26/20 21:00 Room Air 03/26/20 20:00 96.9 79 20 142/89 (106) 94 03/26/20 16:00 97.2 90 20 117/67 (84) 95 03/26/20 12:00 97.4 61 19 122/42 (68) 95 03/26/20 10:02 98.0 81 20 137/80 (99) 99 Intake and Output 03/26/20 03/27/20 19:00 07:00 Intake Total 440 ml Output Total 2000 ml Balance -1560 ml Intake Oral 440 ml Hemodialysis UF 2000 ml # Bowel Movements 2 1 Laboratory Tests 03/27/20 06:00: White Blood Count [Pending], Red Blood Count [Pending], Hemoglobin [Pending], Hematocrit [Pending], Mean Corpuscular Volume [Pending], Mean Corpuscular Hemoglobin [Pending], Mean Corpuscular Hemoglobin Concent [Pending], Red Cell Distribution Width [Pending], Platelet Count [Pending], Mean Platelet Volume [ Pending], Neutrophils (%) (Auto) [Pending], Lymphocytes (%) (Auto) [Pending], Monocytes (%) (Auto) [Pending], Eosinophils (%) (Auto) [Pending], Basophils (%) (Auto) [Pending], Sodium Level [Pending], Potassium Level [Pending], Chloride Level [Pending], Carbon Dioxide Level [Pending], Blood Urea Nitrogen [Pending], Creatinine [Pending], Estimat Glomerular Filtration Rate [Pending], Glucose Level [Pending], Uric Acid [Pending], Calcium Level [Pending], Phosphorus Level [Pending], Magnesium Level [Pending], Total Bilirubin [Pending], Aspartate Amino Transf (AST/SGOT) [Pending], Alanine Aminotransferase (ALT/SGPT) [Pending] , Alkaline Phosphatase [Pending], Total Protein [Pending], Albumin [Pending], Globulin [Pending] Height (Feet): 5 Height (Inches): 7.00 Weight (Pounds): 210 General Appearance: lethargic EENT: normal ENT inspection Neck: normal alignment Cardiovascular: normal rate, regular rhythm Respiratory/Chest: no respiratory distress, no accessory muscle use Extremities: normal inspection Skin: normal pigmentation Roderick Henning DO March 27, 2020 09:01
[2020-03-27 09:38] LABS: BASOPHILS % (AUTO) 0.7 % (0.0-2.0); EOSINOPHILS % (AUTO) 1.8 % (0.0-3.0); HEMATOCRIT 33.9 % (37.0-47.0); HEMOGLOBIN 10.6 G/DL (12.0-16.0); LYMPHOCYTES % (AUTO) 13.1 % (20.0-45.0); MEAN CORPUSCULAR VOLUME 80 FL (80-99); MONOCYTES % (AUTO) 9.7 % (1.0-10.0); NEUTROPHILS % (AUTO) 74.7 % (45.0-75.0); PLATELET COUNT 151 K/UL (150-450); RED BLOOD COUNT 4.25 M/UL (4.20-5.40); RED CELL DISTRIBUTION WIDTH 20.1 % (11.6-14.8); WHITE BLOOD COUNT 9.3 K/UL (4.8-10.8)
[2020-03-27] MEDS: Renvela 800mg Pkt NG SCH ×3 (10:05→17:46)
[2020-03-27] MEDS: Thiamine 100mg tab ORAL SCH (10:06)
[2020-03-27] MEDS: Pyridoxine 50mg tab ORAL SCH (10:06)
[2020-03-27] MEDS: Memantine 5 MG TAB ORAL SCH (10:06)
[2020-03-27] MEDS: Heparin 5000 units/ml inj SUBQ SCH ×2 (10:06→20:38)
--- NOTE | 2020-03-27 10:20 | Pulmonology Progress Note ---
Assessment/Plan Assessment/Plan ASSESSMENT COVID 19 pneumonia -confirmed Acute respiratory failure requiring intubation, secondary to COVID 19 infection , status post self extubation Proteus bacteremia, s/p Rx Persistent Staph epidermidis and VRE bacteremi ( despite prior Rx x 6 wks) ESRD, on HD Diabetes mellitus Hypertension Pacemaker Jehovah witness Obesity hypoventilation syndrome Anemia PLAN of CARE [facility] floor s/p self extubated ABG stable, pulse ox OK O2 HHN PRN fup CXR noted, CT chest noted IV Vanco for 6-week for possible SBE as per ID recs , Linezolid aded for synergy s/p Rx x 14 days for Proteus bacteremia ) BCX + Proteus 03/10 along with Staph epid and VRE ID also recommends WBC scan to evaluate for possible AVF infection BCX with persistent VRE and Staph epidermidis last BCX 03/24 NGTD due to persistent + BCX and failure of vanco, changed to Dapto, back on Vanco and Linezolid ( added for synergy as per ID recs) , bacteremia likely 2 to endovascular source ( AV shunt infection or endocarditis ) ROSA CoVID-2 by PCR 03/20 and 03/22 NGT now can have WBC scan and possible CLAY as per ID recs Echo from [facility] w/out evidence of vegetation ( per cardio patient at high risk to have CLAY ) UCX with Candice - likely colonizer -per ID s/p Plaquenil and azithromycin for 5 days influenza screen NGT asp precautions diet started as per ST recs (after swallow eval) HD as per nephro with close monitoring of volumes and renal parameters correct lytes as needed DVT, GI prophylaxis case discussed and evaluated by supervising physician Subjective ROS Limited/Unobtainable: Yes Constitutional: Reports: no symptoms HEENT: Repors: no symptoms Respiratory: Reports: no symptoms Allergies: Coded Allergies: NO KNOWN ALLERGIES (Unverified Allergy, Unknown, 10/15/15) All Systems: reviewed and negative except above Subjective no signs of resp distress no fevers, no leukocytosis last SARS- CoV-2 by PCR 03/20 and 03/22 non- detected Objective Last 24 Hour Vital Signs Date Time Temp Pulse Resp B/P (MAP) Pulse Ox O2 Delivery O2 Flow Rate FiO2 03/27/20 04:00 96.2 76 16 118/60 (79) 99 03/27/20 00:00 96.9 73 20 156/95 (115) 94 03/26/20 21:00 Room Air 03/26/20 20:00 96.9 79 20 142/89 (106) 94 03/26/20 16:00 97.2 90 20 117/67 (84) 95 03/26/20 12:00 97.4 61 19 122/42 (68) 95 Intake and Output 03/26/20 03/27/20 19:00 07:00 Intake Total 440 ml Output Total 2000 ml Balance -1560 ml Intake Oral 440 ml Hemodialysis UF 2000 ml # Bowel Movements 2 1 Objective General Appearance: no acute distress, morbidly obese AA female HEENT: normocephalic, atraumatic Respiratory/Chest: decreased breath sounds Cardiovascular: normal rate, PICC intact Abdomen: normal bowel sounds, soft, non tender , obese Extremities: trace edema BLE, RUE AV shunt + bruit/thrill Neurologic/Psychiatric: abnormal gait, alert, responsive Musculoskeletal: atrophy - BLE Cardiovascular: other - LUE PICC intact Extremities: other - trace edema BLE, RUE AV shunt + bruit/thrill Microbiology Date/Time Source Procedure Growth Status 03/24/20 13:00 Nasopharynx Coronavirus COVID-19 PCR ([facility]) - Final Complete Laboratory Tests 03/27/20 06:00: White Blood Count 9.3, Red Blood Count 4.25, Hemoglobin 10.6L, Hematocrit 33.9L , Mean Corpuscular Volume 80, Mean Corpuscular Hemoglobin 25.1L, Mean Corpuscular Hemoglobin Concent 31.4L, Red Cell Distribution Width 20.1H, Platelet Count 151, Mean Platelet Volume 7.1, Neutrophils (%) (Auto) 74.7, Lymphocytes (%) (Auto) 13.1L, Monocytes (%) (Auto) 9.7, Eosinophils (%) (Auto) 1.8, Basophils (%) (Auto) 0.7, Sodium Level [Pending], Potassium Level [Pending] , Chloride Level [Pending], Carbon Dioxide Level [Pending], Blood Urea Nitrogen [Pending], Creatinine [Pending], Estimat Glomerular Filtration Rate [Pending], Glucose Level [Pending], Uric Acid [Pending], Calcium Level [Pending], Phosphorus Level [Pending], Magnesium Level [Pending], Total Bilirubin [Pending] , Aspartate Amino Transf (AST/SGOT) [Pending], Alanine Aminotransferase (ALT/ SGPT) [Pending], Alkaline Phosphatase [Pending], Total Protein [Pending], Albumin [Pending], Globulin [Pending] Current Medications Medications (Trade) Dose Ordered Sig/Josi Route PRN Reason Start Time Stop Time Status Last Admin Dose Admin Acetaminophen (Tylenol) 650 mg Q4H PRN GT fever 03/10/20 23:45 04/07/20 23:39 Acetaminophen/ Hydrocodone Bitart (Ethel 10) 1 tab Q4H PRN GT Moderate Pain (Pain Scale 4-6) 03/23/20 13:00 03/30/20 12:56 03/26/20 11:25 Albuterol/ Ipratropium (Combivent Respimat) 1 puff Q4H PRN INH Shortness of Breath 03/10/20 23:45 04/07/20 23:40 Atorvastatin Calcium (Lipitor) 10 mg BEDTIME NG 03/11/20 21:00 05/25/20 20:59 03/26/20 21:03 Chlorhexidine Gluconate (Jenny-Hex 2%) 1 applic DAILY@1999 TOPIC 03/23/20 20:00 06/21/20 19:59 Epoetin Jose De Jesus (Epoetin Jose De Jesus(ESRD on dialysis)) 6,000 unit SUN-SUN-SUN SUBQ 03/26/20 21:00 06/24/20 20:59 03/26/20 21:04 Heparin Sodium (Porcine) (Heparin 5000 units/ml) 5,000 units EVERY 12 HOURS SUBQ 03/11/20 09:00 04/10/20 08:59 03/27/20 10:06 Insulin Aspart (NovoLOG) Q6HR SUBQ 03/11/20 00:00 05/20/20 12:29 03/27/20 00:14 Linezolid (Zyvox) 600 mg EVERY 12 HOURS ORAL 03/25/20 21:00 03/30/20 20:59 03/27/20 10:06 Lorazepam (Ativan) 1 mg Q6H PRN ORAL For Anxiety 03/21/20 21:30 03/28/20 21:29 03/26/20 17:19 Memantine (Namenda) 5 mg DAILY ORAL 03/22/20 09:00 04/21/20 08:59 03/27/20 10:06 Pantoprazole (Protonix) 40 mg EVERY 12 HOURS ORAL 03/17/20 21:00 04/16/20 20:59 03/27/20 10:05 Pyridoxine HCl (Vitamin B6) 50 mg DAILY ORAL 03/18/20 09:00 04/17/20 08:59 03/27/20 10:06 Sevelamer Carbonate (Renvela) 1,600 mg TID NG 03/18/20 13:00 05/25/20 11:59 03/27/20 10:05 Thiamine HCl (Vitamin B1) 100 mg DAILY ORAL 03/18/20 09:00 04/17/20 08:59 03/27/20 10:06 Vancomycin HCl (Vanco rx to dose) 1 ea DAILY PRN MISC . 03/25/20 14:45 04/24/20 14:44 Vancomycin HCl 1 gm/Sodium Chloride 275 ml @ 183.708 mls/hr TuThSa PRN IVPB GIVE WITH HD ON HD DAYS 03/27/20 09:00 04/01/20 08:59 Chastity Velasco NP March 27, 2020 10:20
--- NOTE | 2020-03-27 10:40 | Surgery Progress Note ---
Surgery Progress Note Subjective Additional Comments COVID neg x 2 had HD 2 L out abx with HD no complaints Objective Last 24 Hour Vital Signs Date Time Temp Pulse Resp B/P (MAP) Pulse Ox O2 Delivery O2 Flow Rate FiO2 03/27/20 04:00 96.2 76 16 118/60 (79) 99 03/27/20 00:00 96.9 73 20 156/95 (115) 94 03/26/20 21:00 Room Air 03/26/20 20:00 96.9 79 20 142/89 (106) 94 03/26/20 16:00 97.2 90 20 117/67 (84) 95 03/26/20 12:00 97.4 61 19 122/42 (68) 95 I&O Intake and Output 03/26/20 03/27/20 19:00 07:00 Intake Total 440 ml Output Total 2000 ml Balance -1560 ml Intake Oral 440 ml Hemodialysis UF 2000 ml # Bowel Movements 2 1 Cardiovascular: RSR Respiratory: decreased breath sounds Abdomen: soft, non-tender, present bowel sounds Extremities: no cyanosis Laboratory Tests Test 03/27/20 06:00 White Blood Count 9.3 K/UL (4.8-10.8) Red Blood Count 4.25 M/UL (4.20-5.40) Hemoglobin 10.6 G/DL (12.0-16.0) L Hematocrit 33.9 % (37.0-47.0) L Mean Corpuscular Volume 80 FL (80-99) Mean Corpuscular Hemoglobin 25.1 PG (27.0-31.0) L Mean Corpuscular Hemoglobin Concent 31.4 G/DL (32.0-36.0) L Red Cell Distribution Width 20.1 % (11.6-14.8) H Platelet Count 151 K/UL (150-450) Mean Platelet Volume 7.1 FL (6.5-10.1) Neutrophils (%) (Auto) 74.7 % (45.0-75.0) Lymphocytes (%) (Auto) 13.1 % (20.0-45.0) L Monocytes (%) (Auto) 9.7 % (1.0-10.0) Eosinophils (%) (Auto) 1.8 % (0.0-3.0) Basophils (%) (Auto) 0.7 % (0.0-2.0) Sodium Level Pending Potassium Level Pending Chloride Level Pending Carbon Dioxide Level Pending Blood Urea Nitrogen Pending Creatinine Pending Estimat Glomerular Filtration Rate Pending Glucose Level Pending Uric Acid Pending Calcium Level Pending Phosphorus Level Pending Magnesium Level Pending Total Bilirubin Pending Aspartate Amino Transf (AST/SGOT) Pending Alanine Aminotransferase (ALT/SGPT) Pending Alkaline Phosphatase Pending Total Protein Pending Albumin Pending Globulin Pending Plan Problems: (1) COVID-19 virus infection Assessment & Plan: positive on admission now negative (2) Bleeding from dialysis shunt Assessment & Plan: right upper arm fistula with thrill and proximal pulse dressings saturated but no active bleeding okay to use (3) Bacteremia Assessment & Plan: 64-year-old female with bacteremia currently admitted for some time [facility] has been on IV antibiotics per infectious disease and has had multiple peripheral lines in the past PICC line's which she is removed. She recently had a PICC line placed in the left upper arm approximately 03/19 which she now removed when she was agitated. She has been removing these lines for some time now and is not amenable to restraints or cognitive resuscitation. She currently is without IV access. Given her history and current condition and agitation appreciate psych input and medications. Unfortunately I do not believe she is safe for central line placement for 2 reasons 1 day very difficult to place central line in agitated state as she is not amenable to one being placed to she will likely remove this line immediately. I spoke with nephrology and ID and we have come up with a plan to keep patient on oral medications and for antibiotics we will switch to vancomycin which will get given with her dialysis which she is and has been tolerating. Will follow along if any changes will plan for insertion will attempt peripheral first before central. Okay to be without line for now. Thank you allowing me to participate patient's care DAILY ESTIMATED NEEDS: Needs based on obesity, pulmonary, HD, wound 78kg abw 20-25 kcals/kg [id number] total kcals 1.25-1.8 g protein/kg 98-140 g total protein per MD, pt on HD NUTRITION DIAGNOSIS: * Swallowing difficulty R/T respiratory status as evidenced by pt orally intubated, now s/p extubation, s/p pulling out NGT, now on pureed moist texture w/ NTL. * Altered nutrition related lab values R/T ESRD as evidenced by elev creat (9.0), elev BNP (>90446->51810), elev phos (6.0-> wnl->5.5-> wnl). CURRENT DIET:Renal, pureed moist w/ NTL + Nepro BID PO DIET RECOMMENDATIONS: RENAL + CCHO MED/ texture per LIBRARY MANAGER ADDITIONAL RECOMMENDATIONS: 1) Calibrated bedscale wt for accurate CBW- daily wts for ESRD dx wts in the 210's vs 240's a few week ago 2) Monitor BGs closely, for hypoglycemia h/o frequent hypoglycemia during prev admissions 3) Monitor PO intake closely: appears to be improved at this time -> monitor need to decrease Nepro HPN 4) Add Nephrovite x 1 for skin integrity Nestor Dyson March 27, 2020 10:40
[2020-03-27 12:00] VITALS: BP 126/70
--- NOTE | 2020-03-27 14:15 | Nephrology Progress Note ---
Assessment/Plan Problem List: (1) Acute respiratory failure (2) ESRD (end stage renal disease) on dialysis (3) UTI (urinary tract infection) (4) Patient is Zoroastrian (5) Pacemaker (6) Diabetes (7) Obesity (BMI 30-39.9) Assessment ARDS (adult respiratory distress syndrome) Fever Sepsis UTI (urinary tract infection) Respiratory failure, intubated on ventilator Thrombocytopenia Lymphopenia End stage renal disease on dialysis. Has a right upper arm dialysis fistula as Acces . Getting dialysis Sunday. morbid obesity Anemia / Jehova's witness CAD previous stent HTN- hypertensive urgency upon arrival to [facility]. s/p AVG DM 2 bilateral eye blindness h/o CHF Pacemaker Plan Was dialyzed on March 26 will repeat dialysis made 3 Antibiotics per IV Today's labs still not drawn most likely the patient refused Previously on Zyvox and cefepime and daptomycin There is an issue with patient's IV line. She has pulled out previous PICC line's. Discussed with RN Previously Patient extubated March 04, and remains extubated, now in MedSurg floor Patient positive for Covid 19 Per ID and pulmonary, Last dialyzed March 23 next dialysis March 25 EPO, thiamin and b6 Phos binders NGT feeding per consultants Remains full code at this time Subjective ROS Limited/Unobtainable: No Constitutional: Reports: malaise, weakness Objective Objective Last 24 Hour Vital Signs Date Time Temp Pulse Resp B/P (MAP) Pulse Ox O2 Delivery O2 Flow Rate FiO2 03/27/20 08:00 98.3 78 17 121/63 (82) 99 03/27/20 04:00 96.2 76 16 118/60 (79) 99 03/27/20 00:00 96.9 73 20 156/95 (115) 94 03/26/20 21:00 Room Air 03/26/20 20:00 96.9 79 20 142/89 (106) 94 03/26/20 16:00 97.2 90 20 117/67 (84) 95 Intake and Output 03/26/20 03/27/20 19:00 07:00 Intake Total 440 ml Output Total 2000 ml Balance -1560 ml Intake Oral 440 ml Hemodialysis UF 2000 ml # Bowel Movements 2 1 Laboratory Tests 03/27/20 06:00: White Blood Count 9.3, Red Blood Count 4.25, Hemoglobin 10.6L, Hematocrit 33.9L , Mean Corpuscular Volume 80, Mean Corpuscular Hemoglobin 25.1L, Mean Corpuscular Hemoglobin Concent 31.4L, Red Cell Distribution Width 20.1H, Platelet Count 151, Mean Platelet Volume 7.1, Neutrophils (%) (Auto) 74.7, Lymphocytes (%) (Auto) 13.1L, Monocytes (%) (Auto) 9.7, Eosinophils (%) (Auto) 1.8, Basophils (%) (Auto) 0.7 Height (Feet): 5 Height (Inches): 7.00 Weight (Pounds): 210 General Appearance: no apparent distress, lethargic Cardiovascular: normal rate Respiratory/Chest: decreased breath sounds Abdomen: distended Objective No change Bryan Hunter MD March 27, 2020 14:15
[2020-03-27 16:00] VITALS: BP 120/74
[2020-03-27] MEDS: HYDROcodone/Acetamin 10/325 tab GT PRN (17:47)
--- NOTE | 2020-03-27 19:11 | NUR ---
HAND-OFF: Report given to NATHALIA Cho.
--- NOTE | 2020-03-27 19:15 | NUR ---
NURSE NOTES: Receive pt on the bed sleeping. Pt is alert and oriented x3 , no sob, no complain of pain, vitals are stable and no fever. pt is on room air . pt is covid 19 potsitve and pt is on isolation for covid 19. Bed in the lower position, alarm on, and locked. Call light within reach. We will keep monitoring
--- NOTE | 2020-03-27 19:53 | NUR ---
NURSE NOTES: I Called and talked to Eli in the dialysis center to make an appointment for tomorrow. He said he will send someone tomorrow to the dialysis but he don not know what time.
[2020-03-27 20:00] VITALS: BP 101/78
[2020-03-27] MEDS: Dyna-Hex 2% Top Sol 2oz TOPIC SCH (20:00)
--- NOTE | 2020-03-27 21:15 | Progress Note ---
DATE: 03/27/2020 SUBJECTIVE: A 64-year-old female patient with respiratory failure. She has got some altered levels and confusion. She has got high levels of anxiety, but doing relatively well 00:13 hospital due to anemia, obesity, urinary tract infection, hypertension 00:21 and decubitus ulcers on back 00:25 . That is why, her attending physician has requested daily psychiatric consultation for her. MENTAL STATUS EXAMINATION: This is a 64-year-old female patient. Appearance is disheveled. Attitude, irritable and agitated. Affect, guarded and restricted. Intellect poor. Mood, depressed and anxious. Motor activity, psychomotor agitation. Insight and judgment poor. Attention span is poor. Orientation x3. Speech is low volume, slow. Thought process, disorganized and illogical. DIAGNOSIS: Major depressive disorder, mild, recurrent with psychotic features, rule out dementia with psychosis. PLAN: Treat with Namenda 5 mg a day, Ativan 1 every 6 hours p.r.n. anxiety and agitation. Twenty minutes of behavioral management provided. Chart reviewed. Discussed with staff. Seen and assessed at bedside. 01:09. Iker Lawrence M.D. DR: GLO JOB#: [id number] CC:
--- NOTE | 2020-03-27 21:44 | Cardiology Progress Note ---
Assessment/Plan Assessment/Plan she now is coved negative will order echo for evaluation for endocarditis Subjective Subjective the patient is resting in bed, she is alert and reports feeling better, no chest pain, her dyspnea is much better Objective Last 24 Hour Vital Signs Date Time Temp Pulse Resp B/P (MAP) Pulse Ox O2 Delivery O2 Flow Rate FiO2 03/27/20 21:00 Room Air 03/27/20 20:00 96.7 85 18 101/78 (86) 96 03/27/20 16:00 98.5 79 19 120/74 (89) 98 03/27/20 12:00 98.6 83 18 126/70 (88) 99 03/27/20 09:00 Room Air 03/27/20 08:00 98.3 78 17 121/63 (82) 99 03/27/20 04:00 96.2 76 16 118/60 (79) 99 03/27/20 00:00 96.9 73 20 156/95 (115) 94 General Appearance: no apparent distress, obese EENT: PERRL/EOMI Neck: JVD Rhythm: ST Cardiovascular: regular rhythm, diastolic murmur Respiratory/Chest: no respiratory distress, rhonchi - bilaterally Abdomen: soft Extremities: no calf tenderness Intake and Output 03/26/20 03/27/20 19:00 07:00 Intake Total 440 ml Output Total 2000 ml Balance -1560 ml Intake Oral 440 ml Hemodialysis UF 2000 ml # Bowel Movements 2 1 Laboratory Tests Test 03/27/20 06:00 White Blood Count 9.3 K/UL (4.8-10.8) Red Blood Count 4.25 M/UL (4.20-5.40) Hemoglobin 10.6 G/DL (12.0-16.0) L Hematocrit 33.9 % (37.0-47.0) L Mean Corpuscular Volume 80 FL (80-99) Mean Corpuscular Hemoglobin 25.1 PG (27.0-31.0) L Mean Corpuscular Hemoglobin Concent 31.4 G/DL (32.0-36.0) L Red Cell Distribution Width 20.1 % (11.6-14.8) H Platelet Count 151 K/UL (150-450) Mean Platelet Volume 7.1 FL (6.5-10.1) Neutrophils (%) (Auto) 74.7 % (45.0-75.0) Lymphocytes (%) (Auto) 13.1 % (20.0-45.0) L Monocytes (%) (Auto) 9.7 % (1.0-10.0) Eosinophils (%) (Auto) 1.8 % (0.0-3.0) Basophils (%) (Auto) 0.7 % (0.0-2.0) Evelia Cadet MD March 27, 2020 21:44
[2020-03-28] VITALS: BP 90/64
[2020-03-28 04:00] VITALS: BP 127/83
[2020-03-28 05:38] LABS: BASOPHILS % (AUTO) 0.8 % (0.0-2.0); EOSINOPHILS % (AUTO) 6.3 % (0.0-3.0); HEMATOCRIT 33.6 % (37.0-47.0); HEMOGLOBIN 10.4 G/DL (12.0-16.0); LYMPHOCYTES % (AUTO) 26.3 % (20.0-45.0); MEAN CORPUSCULAR VOLUME 79 FL (80-99); MONOCYTES % (AUTO) 11.9 % (1.0-10.0); NEUTROPHILS % (AUTO) 54.7 % (45.0-75.0); PLATELET COUNT 158 K/UL (150-450); RED BLOOD COUNT 4.26 M/UL (4.20-5.40); WHITE BLOOD COUNT 8.1 K/UL (4.8-10.8)
[2020-03-28 05:51] LABS: ALANINE AMINOTRANSFERASE 53 U/L (12-78); ALBUMIN 3.4 G/DL (3.4-5.0); ALBUMIN/GLOBULIN RATIO 0.7 (1.0-2.7); ALKALINE PHOSPHATASE 280 U/L (46-116); ANION GAP 16 mmol/L (5-15); ASPARTATE AMINO TRANSFERASE 41 U/L (15-37); BLOOD UREA NITROGEN 65 mg/dL (7-18); CALCIUM 9.6 MG/DL (8.5-10.1); CARBON DIOXIDE 26 MMOL/L (21-32); CHLORIDE 95 MMOL/L (98-107); CREATININE 9.8 MG/DL (0.55-1.30); PHOSPHORUS 4.3 MG/DL (2.5-4.9); POTASSIUM 4.6 MMOL/L (3.5-5.1); SODIUM 137 MMOL/L (136-145)
[2020-03-28] MEDS: NovoLOG Insulin Flexpen SUBQ SCH ×5 (06:00→23:40)
--- NOTE | 2020-03-28 06:48 | General Progress Note ---
Assessment/Plan Status: unchanged Assessment/Plan: 1. Diabetes. 2. End-stage renal disease, on hemodialysis. 3. Chronic anemia. 4. Obesity. 5. Gastritis. 6. Kidney stones. 7. Abdominal hernia. 8. Hiatal hernia. 9. Cardiomegaly. 10. Hypercholesterolemia. 11. Hypertension. 12. Bilateral eye blindness. 13. Coronary artery disease and cardiac stent placement. 14. History of EtOH and cocaine abuse in the past. 15. Dysphagia abd CT reviewed COVID positive swallow eval appreciated on diet fu cardiology and Id recs HD per nephrology fu labs recent labs and notes reviewed hold GI procedures for now Subjective ROS Limited/Unobtainable: No Allergies: Coded Allergies: NO KNOWN ALLERGIES (Unverified Allergy, Unknown, 10/15/15) Objective Last 24 Hour Vital Signs Date Time Temp Pulse Resp B/P (MAP) Pulse Ox O2 Delivery O2 Flow Rate FiO2 03/28/20 04:00 96.0 74 18 127/83 (98) 99 03/28/20 00:00 96.8 81 18 90/64 (73) 96 03/27/20 21:00 Room Air 03/27/20 20:00 96.7 85 18 101/78 (86) 96 03/27/20 16:00 98.5 79 19 120/74 (89) 98 03/27/20 12:00 98.6 83 18 126/70 (88) 99 03/27/20 09:00 Room Air 03/27/20 08:00 98.3 78 17 121/63 (82) 99 Intake and Output 03/27/20 03/28/20 19:00 07:00 # Bowel Movements 1 Laboratory Tests 03/28/20 04:00: White Blood Count 8.1, Red Blood Count 4.26, Hemoglobin 10.4L, Hematocrit 33.6L , Mean Corpuscular Volume 79L, Mean Corpuscular Hemoglobin 24.4L, Mean Corpuscular Hemoglobin Concent 31.0L, Red Cell Distribution Width 20.0H, Platelet Count 158, Mean Platelet Volume 6.8, Neutrophils (%) (Auto) 54.7, Lymphocytes (%) (Auto) 26.3, Monocytes (%) (Auto) 11.9H, Eosinophils (%) (Auto) 6.3H, Basophils (%) (Auto) 0.8, Sodium Level 137, Potassium Level 4.6, Chloride Level 95L, Carbon Dioxide Level 26, Anion Gap 16H, Blood Urea Nitrogen 65H, Creatinine 9.8H, Estimat Glomerular Filtration Rate 4.8, Glucose Level 128H, Calcium Level 9.6, Phosphorus Level 4.3, Magnesium Level 3.2H, Total Bilirubin 1.0, Aspartate Amino Transf (AST/SGOT) 41H, Alanine Aminotransferase (ALT/SGPT) 53, Alkaline Phosphatase 280H, C-Reactive Protein, Quantitative 1.4H, Pro-B- Type Natriuretic Peptide 3721H, Total Protein 8.3H, Albumin 3.4, Globulin 4.9, Albumin/Globulin Ratio 0.7L Height (Feet): 5 Height (Inches): 7.00 Weight (Pounds): 210 General Appearance: no apparent distress EENT: normal ENT inspection Neck: normal alignment Cardiovascular: normal rate Respiratory/Chest: decreased breath sounds Abdomen: normal bowel sounds, non tender, soft Extremities: non-tender Jamison Garcia MD March 28, 2020 06:48
--- NOTE | 2020-03-28 07:11 | NUR ---
HAND-OFF: Report given to NATHALIA Godinez. Endorsed the pt is a fall risk .
--- NOTE | 2020-03-28 07:23 | NUR ---
NURSE NOTES: Received report from NATHALIA Cordova. Patient seen on rounds, AxOx3-4. On room air, no signs of distress or labored breathing. No IV access, MD aware. Patient is high fall risk, yellow gown on, bed low and locked, siderails up x2, call light placed within reach, instructed to call nurse for assistance. Isolation precautions maintained. Will continue with plan of care.
[2020-03-28 08:00] VITALS: BP 105/69
[2020-03-28] MEDS: Heparin 5000 units/ml inj SUBQ SCH ×2 (09:00→22:30)
[2020-03-28] MEDS: Memantine 5 MG TAB ORAL SCH (09:28)
[2020-03-28] MEDS: Pyridoxine 50mg tab ORAL SCH (09:28)
[2020-03-28] MEDS: Thiamine 100mg tab ORAL SCH (09:28)
[2020-03-28] MEDS: Renvela 800mg Pkt NG SCH ×3 (09:28→18:00)
--- NOTE | 2020-03-28 09:34 | General Progress Note ---
Assessment/Plan Problem List: (1) Obesity (BMI 30-39.9) ICD Codes: E66.9 - Obesity, unspecified SNOMED: 582298121, 773056384 (2) COVID-19 virus infection ICD Codes: U07.1 - COVID-19 SNOMED: 031127369 (3) Acute respiratory failure ICD Codes: J96.00 - Acute respiratory failure, unspecified whether with hypoxia or hypercapnia SNOMED: 23123313 (4) Blindness of both eyes ICD Codes: H54.0 - Blindness SNOMED: 962980514 (5) ESRD (end stage renal disease) on dialysis ICD Codes: N18.6 - End stage renal disease; Z99.2 - Dependence on renal dialysis SNOMED: 662124367 (6) Anemia ICD Codes: D64.9 - Anemia, unspecified SNOMED: 833908192 (7) Diabetes ICD Codes: E11.9 - Type 2 diabetes mellitus without complications SNOMED: 84805895 (8) AMS (altered mental status) ICD Codes: R41.82 - Altered mental status, unspecified SNOMED: 164244986 Status: unchanged Assessment/Plan: vent abx dialysis cbc bmp am ltach eval Subjective Allergies: Coded Allergies: NO KNOWN ALLERGIES (Unverified Allergy, Unknown, 10/15/15) All Systems: reviewed and negative except above Subjective lethargic sleepy Objective Last 24 Hour Vital Signs Date Time Temp Pulse Resp B/P (MAP) Pulse Ox O2 Delivery O2 Flow Rate FiO2 03/28/20 08:00 98.1 78 18 105/69 (81) 93 03/28/20 04:00 96.0 74 18 127/83 (98) 99 03/28/20 00:00 96.8 81 18 90/64 (73) 96 03/27/20 21:00 Room Air 03/27/20 20:00 96.7 85 18 101/78 (86) 96 03/27/20 16:00 98.5 79 19 120/74 (89) 98 03/27/20 12:00 98.6 83 18 126/70 (88) 99 Intake and Output 03/27/20 03/28/20 19:00 07:00 Intake Total 118 ml Balance 118 ml Other 118 ml # Bowel Movements 1 Laboratory Tests 03/28/20 04:00: White Blood Count 8.1, Red Blood Count 4.26, Hemoglobin 10.4L, Hematocrit 33.6L , Mean Corpuscular Volume 79L, Mean Corpuscular Hemoglobin 24.4L, Mean Corpuscular Hemoglobin Concent 31.0L, Red Cell Distribution Width 20.0H, Platelet Count 158, Mean Platelet Volume 6.8, Neutrophils (%) (Auto) 54.7, Lymphocytes (%) (Auto) 26.3, Monocytes (%) (Auto) 11.9H, Eosinophils (%) (Auto) 6.3H, Basophils (%) (Auto) 0.8, Sodium Level 137, Potassium Level 4.6, Chloride Level 95L, Carbon Dioxide Level 26, Anion Gap 16H, Blood Urea Nitrogen 65H, Creatinine 9.8H, Estimat Glomerular Filtration Rate 4.8, Glucose Level 128H, Calcium Level 9.6, Phosphorus Level 4.3, Magnesium Level 3.2H, Total Bilirubin 1.0, Aspartate Amino Transf (AST/SGOT) 41H, Alanine Aminotransferase (ALT/SGPT) 53, Alkaline Phosphatase 280H, C-Reactive Protein, Quantitative 1.4H, Pro-B- Type Natriuretic Peptide 3721H, Total Protein 8.3H, Albumin 3.4, Globulin 4.9, Albumin/Globulin Ratio 0.7L Height (Feet): 5 Height (Inches): 7.00 Weight (Pounds): 210 General Appearance: lethargic EENT: normal ENT inspection Neck: normal inspection Cardiovascular: normal rate, regular rhythm Respiratory/Chest: no respiratory distress, no accessory muscle use Extremities: normal inspection Skin: normal pigmentation Roderick Henning DO March 28, 2020 09:34
--- NOTE | 2020-03-28 10:07 | Pulmonology Progress Note ---
Assessment/Plan Assessment/Plan ASSESSMENT COVID 19 pneumonia -confirmed Acute respiratory failure requiring intubation, secondary to COVID 19 infection , status post self extubation Proteus bacteremia, s/p Rx Persistent Staph epidermidis and VRE bacteremi ( despite prior Rx x 6 wks) ESRD, on HD Diabetes mellitus Hypertension Pacemaker Jehovah witness Obesity hypoventilation syndrome Anemia PLAN of CARE [facility] floor s/p self extubated ABG stable, pulse ox OK O2 HHN PRN fup CXR noted, CT chest noted IV Vanco for 6-week for possible SBE as per ID recs , Linezolid aded for synergy s/p Rx x 14 days for Proteus bacteremia ) BCX + Proteus 03/10 along with Staph epid and VRE ID also recommends WBC scan to evaluate for possible AVF infection BCX with persistent VRE and Staph epidermidis last BCX 03/24 NGTD due to persistent + BCX and failure of vanco, changed to Dapto, back on Vanco ( lost IV line, Vanco during HD and Linezolid ( added for synergy as per ID recs)) , bacteremia likely 2 to endovascular source ( AV shunt infection or endocarditis ) ROSA CoVID-2 by PCR 03/20 and 03/22 NGT now can have WBC scan and possible CLAY as per ID recs Echo from [facility] w/out evidence of vegetation ( per cardio patient at high risk to have CLAY ) UCX with Candice - likely colonizer -per ID s/p Plaquenil and azithromycin for 5 days influenza screen NGT asp precautions diet started as per ST recs (after swallow eval) HD as per nephro with close monitoring of volumes and renal parameters correct lytes as needed DVT, GI prophylaxis case discussed and evaluated by supervising physician Subjective ROS Limited/Unobtainable: No Allergies: Coded Allergies: NO KNOWN ALLERGIES (Unverified Allergy, Unknown, 10/15/15) All Systems: reviewed and negative except above Subjective no signs of resp distress no fevers, no leukocytosis last SARS- CoV-2 by PCR 03/20 and 03/22 non- detected Objective Last 24 Hour Vital Signs Date Time Temp Pulse Resp B/P (MAP) Pulse Ox O2 Delivery O2 Flow Rate FiO2 03/28/20 09:00 Room Air 03/28/20 08:00 98.1 78 18 105/69 (81) 93 03/28/20 04:00 96.0 74 18 127/83 (98) 99 03/28/20 00:00 96.8 81 18 90/64 (73) 96 03/27/20 21:00 Room Air 03/27/20 20:00 96.7 85 18 101/78 (86) 96 03/27/20 16:00 98.5 79 19 120/74 (89) 98 03/27/20 12:00 98.6 83 18 126/70 (88) 99 Intake and Output 03/27/20 03/28/20 19:00 07:00 Intake Total 118 ml Balance 118 ml Other 118 ml # Bowel Movements 1 Objective General Appearance: no acute distress, morbidly obese AA female HEENT: normocephalic, atraumatic Respiratory/Chest: decreased breath sounds Cardiovascular: normal rate, PICC intact Abdomen: normal bowel sounds, soft, non tender , obese Extremities: trace edema BLE, RUE AV shunt + bruit/thrill Neurologic/Psychiatric: abnormal gait, alert, responsive Musculoskeletal: atrophy - BLE Cardiovascular: other - LUE PICC intact Extremities: other - trace edema BLE, RUE AV shunt + bruit/thrill Laboratory Tests 03/28/20 04:00: White Blood Count 8.1, Red Blood Count 4.26, Hemoglobin 10.4L, Hematocrit 33.6L , Mean Corpuscular Volume 79L, Mean Corpuscular Hemoglobin 24.4L, Mean Corpuscular Hemoglobin Concent 31.0L, Red Cell Distribution Width 20.0H, Platelet Count 158, Mean Platelet Volume 6.8, Neutrophils (%) (Auto) 54.7, Lymphocytes (%) (Auto) 26.3, Monocytes (%) (Auto) 11.9H, Eosinophils (%) (Auto) 6.3H, Basophils (%) (Auto) 0.8, Sodium Level 137, Potassium Level 4.6, Chloride Level 95L, Carbon Dioxide Level 26, Anion Gap 16H, Blood Urea Nitrogen 65H, Creatinine 9.8H, Estimat Glomerular Filtration Rate 4.8, Glucose Level 128H, Calcium Level 9.6, Phosphorus Level 4.3, Magnesium Level 3.2H, Total Bilirubin 1.0, Aspartate Amino Transf (AST/SGOT) 41H, Alanine Aminotransferase (ALT/SGPT) 53, Alkaline Phosphatase 280H, C-Reactive Protein, Quantitative 1.4H, Pro-B- Type Natriuretic Peptide 3721H, Total Protein 8.3H, Albumin 3.4, Globulin 4.9, Albumin/Globulin Ratio 0.7L Current Medications Medications (Trade) Dose Ordered Sig/Josi Route PRN Reason Start Time Stop Time Status Last Admin Dose Admin Acetaminophen (Tylenol) 650 mg Q4H PRN GT fever 03/10/20 23:45 04/07/20 23:39 Acetaminophen/ Hydrocodone Bitart ([place] 10/325) 1 tab Q4H PRN GT Moderate Pain (Pain Scale 4-6) 03/23/20 13:00 03/30/20 12:56 03/27/20 17:47 Albuterol/ Ipratropium (Combivent Respimat) 1 puff Q4H PRN INH Shortness of Breath 03/10/20 23:45 04/07/20 23:40 Atorvastatin Calcium (Lipitor) 10 mg BEDTIME NG 03/11/20 21:00 05/25/20 20:59 03/27/20 20:37 Chlorhexidine Gluconate (Jenny-Hex 2%) 1 applic DAILY@1999 TOPIC 03/23/20 20:00 06/21/20 19:59 Epoetin Jose De Jesus (Epoetin Jose De Jesus(ESRD on dialysis)) 6,000 unit SUN-SUN-SUN SUBQ 03/26/20 21:00 06/24/20 20:59 03/26/20 21:04 Heparin Sodium (Porcine) (Heparin 5000 units/ml) 5,000 units EVERY 12 HOURS SUBQ 03/11/20 09:00 04/10/20 08:59 03/27/20 20:38 Insulin Aspart (NovoLOG) Q6HR SUBQ 03/11/20 00:00 05/20/20 12:29 03/28/20 00:00 Linezolid (Zyvox) 600 mg EVERY 12 HOURS ORAL 03/25/20 21:00 03/30/20 20:59 03/28/20 09:28 Lorazepam (Ativan) 1 mg Q6H PRN ORAL For Anxiety 03/21/20 21:30 03/28/20 21:29 03/26/20 17:19 Memantine (Namenda) 5 mg DAILY ORAL 03/22/20 09:00 04/21/20 08:59 03/28/20 09:28 Pantoprazole (Protonix) 40 mg EVERY 12 HOURS ORAL 03/17/20 21:00 04/16/20 20:59 03/28/20 09:28 Pyridoxine HCl (Vitamin B6) 50 mg DAILY ORAL 03/18/20 09:00 04/17/20 08:59 03/28/20 09:28 Sevelamer Carbonate (Renvela) 1,600 mg TID NG 03/18/20 13:00 05/25/20 11:59 03/28/20 09:28 Thiamine HCl (Vitamin B1) 100 mg DAILY ORAL 03/18/20 09:00 04/17/20 08:59 03/28/20 09:28 Vancomycin HCl (Vanco rx to dose) 1 ea DAILY PRN MISC . 03/25/20 14:45 04/24/20 14:44 Vancomycin HCl 1 gm/Sodium Chloride 275 ml @ 183.708 mls/hr ONCE ONCE IVPB 03/28/20 18:00 03/28/20 19:29 Vancomycin HCl 1 gm/Sodium Chloride 275 ml @ 183.708 mls/hr TuThSa PRN IVPB GIVE WITH HD ON HD DAYS 03/27/20 09:00 04/01/20 08:59 Chastity Velasco GEODETIC ENGINEER March 28, 2020 10:07
--- NOTE | 2020-03-28 11:04 | Nephrology Progress Note ---
Assessment/Plan Problem List: (1) Acute respiratory failure (2) ESRD (end stage renal disease) on dialysis (3) UTI (urinary tract infection) (4) Patient is [employer]ab[employer] (5) Pacemaker (6) Diabetes (7) Obesity (BMI 30-39.9) Assessment ARDS (adult respiratory distress syndrome) Fever Sepsis UTI (urinary tract infection) Respiratory failure, intubated on ventilator Thrombocytopenia Lymphopenia End stage renal disease on dialysis. Has a right upper arm dialysis fistula as Acces . Getting dialysis Sunday. morbid obesity Anemia / Jehova's witness CAD previous stent HTN- hypertensive urgency upon arrival to [facility]. s/p AVG DM 2 bilateral eye blindness h/o CHF Pacemaker Plan Was dialyzed on March 26 will repeat dialysis made 3 Antibiotics per IV Today's labs still not drawn most likely the patient refused Previously on Zyvox and cefepime and daptomycin There is an issue with patient's IV line. She has pulled out previous PICC line's. Discussed with RN Previously Patient extubated March 04, and remains extubated, now in MedSurg floor Patient positive for Covid 19 Per ID and pulmonary, Last dialyzed March 23 next dialysis March 25 EPO, thiamin and b6 Phos binders NGT feeding per consultants Remains full code at this time Subjective ROS Limited/Unobtainable: No Constitutional: Reports: malaise, weakness Objective Objective Last 24 Hour Vital Signs Date Time Temp Pulse Resp B/P (MAP) Pulse Ox O2 Delivery O2 Flow Rate FiO2 03/28/20 09:00 Room Air 03/28/20 08:00 98.1 78 18 105/69 (81) 93 03/28/20 04:00 96.0 74 18 127/83 (98) 99 03/28/20 00:00 96.8 81 18 90/64 (73) 96 03/27/20 21:00 Room Air 03/27/20 20:00 96.7 85 18 101/78 (86) 96 03/27/20 16:00 98.5 79 19 120/74 (89) 98 03/27/20 12:00 98.6 83 18 126/70 (88) 99 Intake and Output 03/27/20 03/28/20 19:00 07:00 Intake Total 118 ml Balance 118 ml Other 118 ml # Bowel Movements 1 Laboratory Tests 03/28/20 04:00: White Blood Count 8.1, Red Blood Count 4.26, Hemoglobin 10.4L, Hematocrit 33.6L , Mean Corpuscular Volume 79L, Mean Corpuscular Hemoglobin 24.4L, Mean Corpuscular Hemoglobin Concent 31.0L, Red Cell Distribution Width 20.0H, Platelet Count 158, Mean Platelet Volume 6.8, Neutrophils (%) (Auto) 54.7, Lymphocytes (%) (Auto) 26.3, Monocytes (%) (Auto) 11.9H, Eosinophils (%) (Auto) 6.3H, Basophils (%) (Auto) 0.8, Sodium Level 137, Potassium Level 4.6, Chloride Level 95L, Carbon Dioxide Level 26, Anion Gap 16H, Blood Urea Nitrogen 65H, Creatinine 9.8H, Estimat Glomerular Filtration Rate 4.8, Glucose Level 128H, Calcium Level 9.6, Phosphorus Level 4.3, Magnesium Level 3.2H, Total Bilirubin 1.0, Aspartate Amino Transf (AST/SGOT) 41H, Alanine Aminotransferase (ALT/SGPT) 53, Alkaline Phosphatase 280H, C-Reactive Protein, Quantitative 1.4H, Pro-B- Type Natriuretic Peptide 3721H, Total Protein 8.3H, Albumin 3.4, Globulin 4.9, Albumin/Globulin Ratio 0.7L Height (Feet): 5 Height (Inches): 7.00 Weight (Pounds): 210 General Appearance: no apparent distress Cardiovascular: normal rate Respiratory/Chest: decreased breath sounds Abdomen: distended Objective No change Bryan Hunter MD March 28, 2020 11:04
[2020-03-28 12:00] VITALS: BP 110/67
[2020-03-28] MEDS ORDERED: NS 275ml ONE (14:15)
--- NOTE | 2020-03-28 15:19 | Infectious Diseases Prog Note ---
Assessment/Plan Assessment/Plan The patient is a 64-year-old female with Proteus bacteremia Persistent/recurrent S.epi and VRE bactereima (despite 6 weeks of treatment)- highly suspicious for endovascular source (ie AVF infection, endocarditis) 03/09 Bcx 02/27 VRE, S. epi, 03/10 Bcx 02/27 P . mirabilis, probable amp-C; VRE, CONS; 03/11 Bcx 2/2 sets S.epi; 03/15 12/30 S. epi, 1/ VRE; 03/16 Bcx 3/S.epi, 1/ VRE, 03/20 Bcx 12/30 GPC clusters; 03/24 Bcx NTD -CT abd/p: Cardiomegaly. Evidence of left ventricular muscular hypertrophy. Bilateral lower lobe and inferior lingular ill-defined parenchymal infiltrates, likely pneumonia but could indicate a component of pulmonary edema. Incidental findings as noted, including right renal cyst, evidence of prior hysterectomy, pacemaker, PICC, coronary stents and calcifications Enlarged heterogeneous thyroid. No acute abdominal process cholelithiasis and/ or gallbladder sludge. Diastasis of the rectus abdominis tendon and small fat- containing ventral hernia, also demonstrated previously. Confirmed COVID-19. 02/19 SARS-CoV PCR positive. -03/22 COVID neg x1 -1st repeat neg 03/11 ; 2nd repeat is positive 03/13 Pneumonia Mild leukocytosis, SP -03/09 u/a wbc 40-60, nit neg, leuk +3 Fever, recurrent, SP VDRF- sp self extubation 03/05, now on at [facility] - likely 2/2 COVID, less likely active bacterial superinfection since pt just completed empiric course of antibacterial therapy and sputum cx NG -03/07 CXR: Persistent vascular congestion and suspected interstitial edema.Cardiomegaly with pacer. - 03/01 CXR: Worsening bilateral hazy parenchymal infiltrates, versus edema - 02/20 CXR: Mild pulmonary vascular congestion with subtle bilateral haziness, not significantly changed.Possible tiny pleural effusions. Cardiomegaly. - Bcx ngtd - sp cx normal gui Less likely UTI u/a wbc tnct, nit +, leuk +3; ucx cindy(colonizer) Hx of positive blood culture CONS ,persistent; recurrent 02/04 BCx: CoNS 01/30 Bc: (1/2)CoNS and Citrobacter 01/27 , 3/9 Bc: CoNS - (outside facility, # of the +ve cultures are not clear) A 2D echo from outside facility did not show any evidence of vegetation as per Carido pt is high risk for CLAY: ( last admission ) Diabetes. CHF. ESRD. Hypertension. Obesity. 03/08 SP PICC Line placement; removed on 03/15 and new one placed PLAN: COntinue IV Vancomycin #4(abx d#16)- -will dose IV Vancomycin via AVF during HD days given pt lost IV access (had lost it multiple times already, hard stick) Continue Linezolid #11 for synergisms -monitor CPK, platelets 03/26 SP IM ertapenem #2 03/24 SP Cefepime #10, Daptomycin #13 03/15 SP Meropenem #4 03/12/20 SP IV Vancomycin #2 03/08 SP vancomycin, day # ? ( will Rx for probable SBE) 02/27 SP plaquenil+azithromycin #5 02/25 SP Ertapenem #8 02/24 DC amikacin #6 ONCE COVID neg x2, will order WBC scan and CLAY to evalaute for persistent bacteremia Monitor CBC. Monitor BMP. Monitor cultures (blood, Sp ) COVID19 isolation as 2nd repeat test is still positive f/u 2d Echo- will likely need CLAY will need WBC scan to eval for AVF infection f/u Bcx x2 Repeat COvid x2 DW RN, Dr Hunter, Dr Murillo, Dr Henning and pharmacist. Subjective Allergies: Coded Allergies: NO KNOWN ALLERGIES (Unverified Allergy, Unknown, 10/15/15) Subjective afebrile repeat Bcx NTD repeat COVID neg x2 Objective Vital Signs Last 24 Hour Vital Signs Date Time Temp Pulse Resp B/P (MAP) Pulse Ox O2 Delivery O2 Flow Rate FiO2 03/28/20 12:00 97.5 72 19 110/67 (81) 96 03/28/20 09:00 Room Air 03/28/20 08:00 98.1 78 18 105/69 (81) 93 03/28/20 04:00 96.0 74 18 127/83 (98) 99 03/28/20 00:00 96.8 81 18 90/64 (73) 96 03/27/20 21:00 Room Air 03/27/20 20:00 96.7 85 18 101/78 (86) 96 03/27/20 16:00 98.5 79 19 120/74 (89) 98 Height (Feet): 5 Height (Inches): 7.00 Weight (Pounds): 210 Objective not seen to limit COVID19 exposure Laboratory Tests Test 03/28/20 04:00 White Blood Count 8.1 K/UL (4.8-10.8) Red Blood Count 4.26 M/UL (4.20-5.40) Hemoglobin 10.4 G/DL (12.0-16.0) L Hematocrit 33.6 % (37.0-47.0) L Mean Corpuscular Volume 79 FL (80-99) L Mean Corpuscular Hemoglobin 24.4 PG (27.0-31.0) L Mean Corpuscular Hemoglobin Concent 31.0 G/DL (32.0-36.0) L Red Cell Distribution Width 20.0 % (11.6-14.8) H Platelet Count 158 K/UL (150-450) Mean Platelet Volume 6.8 FL (6.5-10.1) Neutrophils (%) (Auto) 54.7 % (45.0-75.0) Lymphocytes (%) (Auto) 26.3 % (20.0-45.0) Monocytes (%) (Auto) 11.9 % (1.0-10.0) H Eosinophils (%) (Auto) 6.3 % (0.0-3.0) H Basophils (%) (Auto) 0.8 % (0.0-2.0) Sodium Level 137 MMOL/L (136-145) Potassium Level 4.6 MMOL/L (3.5-5.1) Chloride Level 95 MMOL/L (98-107) L Carbon Dioxide Level 26 MMOL/L (21-32) Anion Gap 16 mmol/L (5-15) H Blood Urea Nitrogen 65 mg/dL (7-18) H Creatinine 9.8 MG/DL (0.55-1.30) H Estimat Glomerular Filtration Rate 4.8 mL/min (>60) Glucose Level 128 MG/DL (74-106) H Calcium Level 9.6 MG/DL (8.5-10.1) Phosphorus Level 4.3 MG/DL (2.5-4.9) Magnesium Level 3.2 MG/DL (1.8-2.4) H Total Bilirubin 1.0 MG/DL (0.2-1.0) Aspartate Amino Transf (AST/SGOT) 41 U/L (15-37) H Alanine Aminotransferase (ALT/SGPT) 53 U/L (12-78) Alkaline Phosphatase 280 U/L (46-116) H C-Reactive Protein, Quantitative 1.4 mg/dL (0.00-0.90) H Pro-B-Type Natriuretic Peptide 3721 pg/mL (0-125) H Total Protein 8.3 G/DL (6.4-8.2) H Albumin 3.4 G/DL (3.4-5.0) Globulin 4.9 g/dL Albumin/Globulin Ratio 0.7 (1.0-2.7) L Current Medications Medications (Trade) Dose Ordered Sig/Josi Route PRN Reason Start Time Stop Time Status Last Admin Dose Admin Acetaminophen (Tylenol) 650 mg Q4H PRN GT fever 03/10/20 23:45 04/07/20 23:39 Acetaminophen/ Hydrocodone Bitart ([place] 10/325) 1 tab Q4H PRN GT Moderate Pain (Pain Scale 4-6) 03/23/20 13:00 03/30/20 12:56 03/27/20 17:47 Albuterol/ Ipratropium (Combivent Respimat) 1 puff Q4H PRN INH Shortness of Breath 03/10/20 23:45 04/07/20 23:40 Atorvastatin Calcium (Lipitor) 10 mg BEDTIME NG 03/11/20 21:00 05/25/20 20:59 03/27/20 20:37 Chlorhexidine Gluconate (Jenny-Hex 2%) 1 applic DAILY@2000 TOPIC 03/23/20 20:00 06/21/20 19:59 Epoetin Jose De Jesus (Epoetin Jose De Jesus(ESRD on dialysis)) 6,000 unit SUN-WED-SUN SUBQ 03/26/20 21:00 06/24/20 20:59 03/26/20 21:04 Heparin Sodium (Porcine) (Heparin 5000 units/ml) 5,000 units EVERY 12 HOURS SUBQ 03/11/20 09:00 04/10/20 08:59 03/27/20 20:38 Insulin Aspart (NovoLOG) Q6HR SUBQ 03/11/20 00:00 05/20/20 12:29 03/28/20 12:00 Linezolid (Zyvox) 600 mg EVERY 12 HOURS ORAL 03/25/20 21:00 03/30/20 20:59 03/28/20 09:28 Lorazepam (Ativan) 1 mg Q6H PRN ORAL For Anxiety 03/21/20 21:30 03/28/20 21:29 03/26/20 17:19 Memantine (Namenda) 5 mg DAILY ORAL 03/22/20 09:00 04/21/20 08:59 03/28/20 09:28 Pantoprazole (Protonix) 40 mg EVERY 12 HOURS ORAL 03/17/20 21:00 04/16/20 20:59 03/28/20 09:28 Pyridoxine HCl (Vitamin B6) 50 mg DAILY ORAL 03/18/20 09:00 04/17/20 08:59 03/28/20 09:28 Sevelamer Carbonate (Renvela) 1,600 mg TID NG 03/18/20 13:00 05/25/20 11:59 03/28/20 12:30 Thiamine HCl (Vitamin B1) 100 mg DAILY ORAL 03/18/20 09:00 04/17/20 08:59 03/28/20 09:28 Vancomycin HCl (Vanco rx to dose) 1 ea DAILY PRN MISC . 03/25/20 14:45 04/24/20 14:44 Vancomycin HCl 1 gm/Sodium Chloride 275 ml @ 183.708 mls/hr ONCE ONCE IVPB 03/28/20 18:00 03/28/20 19:29 Vancomycin HCl 1 gm/Sodium Chloride 275 ml @ 183.708 mls/hr TuThSa PRN IVPB GIVE WITH HD ON HD DAYS 03/27/20 09:00 04/01/20 08:59 Susi Vanegas M.D. March 28, 2020 15:19
[2020-03-28 16:00] VITALS: BP 106/69
--- NOTE | 2020-03-28 16:29 | Cardiology Progress Note ---
Assessment/Plan Assessment/Plan echo was done, will review results Subjective Subjective the patient is resting in bed, she is alert and reports feeling better, no chest pain, her dyspnea is much better Objective Last 24 Hour Vital Signs Date Time Temp Pulse Resp B/P (MAP) Pulse Ox O2 Delivery O2 Flow Rate FiO2 03/28/20 12:00 97.5 72 19 110/67 (81) 96 03/28/20 09:00 Room Air 03/28/20 08:00 98.1 78 18 105/69 (81) 93 03/28/20 04:00 96.0 74 18 127/83 (98) 99 03/28/20 00:00 96.8 81 18 90/64 (73) 96 03/27/20 21:00 Room Air 03/27/20 20:00 96.7 85 18 101/78 (86) 96 General Appearance: alert EENT: PERRL/EOMI Neck: no JVD Rhythm: ST Cardiovascular: normal rate Respiratory/Chest: lungs clear Abdomen: no mass Intake and Output 03/27/20 03/28/20 19:00 07:00 Intake Total 118 ml Balance 118 ml Other 118 ml # Bowel Movements 1 Laboratory Tests Test 03/28/20 04:00 White Blood Count 8.1 K/UL (4.8-10.8) Red Blood Count 4.26 M/UL (4.20-5.40) Hemoglobin 10.4 G/DL (12.0-16.0) L Hematocrit 33.6 % (37.0-47.0) L Mean Corpuscular Volume 79 FL (80-99) L Mean Corpuscular Hemoglobin 24.4 PG (27.0-31.0) L Mean Corpuscular Hemoglobin Concent 31.0 G/DL (32.0-36.0) L Red Cell Distribution Width 20.0 % (11.6-14.8) H Platelet Count 158 K/UL (150-450) Mean Platelet Volume 6.8 FL (6.5-10.1) Neutrophils (%) (Auto) 54.7 % (45.0-75.0) Lymphocytes (%) (Auto) 26.3 % (20.0-45.0) Monocytes (%) (Auto) 11.9 % (1.0-10.0) H Eosinophils (%) (Auto) 6.3 % (0.0-3.0) H Basophils (%) (Auto) 0.8 % (0.0-2.0) Sodium Level 137 MMOL/L (136-145) Potassium Level 4.6 MMOL/L (3.5-5.1) Chloride Level 95 MMOL/L (98-107) L Carbon Dioxide Level 26 MMOL/L (21-32) Anion Gap 16 mmol/L (5-15) H Blood Urea Nitrogen 65 mg/dL (7-18) H Creatinine 9.8 MG/DL (0.55-1.30) H Estimat Glomerular Filtration Rate 4.8 mL/min (>60) Glucose Level 128 MG/DL (74-106) H Calcium Level 9.6 MG/DL (8.5-10.1) Phosphorus Level 4.3 MG/DL (2.5-4.9) Magnesium Level 3.2 MG/DL (1.8-2.4) H Total Bilirubin 1.0 MG/DL (0.2-1.0) Aspartate Amino Transf (AST/SGOT) 41 U/L (15-37) H Alanine Aminotransferase (ALT/SGPT) 53 U/L (12-78) Alkaline Phosphatase 280 U/L (46-116) H C-Reactive Protein, Quantitative 1.4 mg/dL (0.00-0.90) H Pro-B-Type Natriuretic Peptide 3721 pg/mL (0-125) H Total Protein 8.3 G/DL (6.4-8.2) H Albumin 3.4 G/DL (3.4-5.0) Globulin 4.9 g/dL Albumin/Globulin Ratio 0.7 (1.0-2.7) Evelia Edouard MD March 28, 2020 16:29
--- NOTE | 2020-03-28 17:29 | Progress Note ---
DATE: 03/28/2020 SUBJECTIVE: This is a female patient who has respiratory failure. She has altered mental status, confusion, and overall decline in cognition below baseline. She has got decline in cognition below the baseline. She also has anemia, obesity, urinary tract infection, decubitus ulcers. That is why, her attending physician has requested daily psychiatric consultation. MENTAL STATUS EXAMINATION: This is a 64-year-old female. Appearance is disheveled. Attitude, irritable and agitated. Affect, guarded and restricted. Intellect poor. Mood, depressed and anxious. Motor activity, psychomotor agitation. Thought process, disorganized and illogical. Insight and judgment is poor. DIAGNOSIS: Major depressive disorder, mild, recurrent with psychotic features, rule out dementia with psychosis. PLAN: Namenda 5 mg daily, Ativan 1 every 6 hours p.r.n. anxiety and agitation. Twenty minutes of behavioral management. Chart reviewed. Discussed with staff. Seen and assessed at bedside. Iker Lawrence M.D. DR: BÁRBARA JOB#: [id number] CC:
[2020-03-28] MEDS ORDERED: Vancomycin 1 GM in NS 275 ML IVPB ONE (18:00)
--- NOTE | 2020-03-28 18:47 | NUR ---
NURSE NOTES: Called [facility] to follow up schedule for patient's dialysis today, spoke with Felix said he would followup with on-call nurse and to wait for call back. Will endorse to succeeding shift.
--- NOTE | 2020-03-28 19:39 | NUR ---
HAND-OFF: Report given to Gary SLOAN. Addendum: 03/28/20 at 1 by Trudy Godinze RN Endorsed that [facility] was made aware of dialysis and time is still pending. Also endorsed that IV Vancomycin must be administered during dialysis.
[2020-03-28 20:00] VITALS: BP 104/79
[2020-03-28] MEDS: Dyna-Hex 2% Top Sol 2oz TOPIC SCH (20:00)
--- NOTE | 2020-03-28 20:35 | NUR ---
NURSE NOTE: Pt is in bed, awake and verbal.No0 acute distress noted. PT has HD due today, HD service notified by last shift. Waiting for HD nurse. Pt is Fall risk, bed alarm on bed locked low in position,side rails up[ and call light within reach. Pt is close to nursing station. Pt will be monitored.
--- NOTE | 2020-03-28 21:32 | Surgery Progress Note ---
Surgery Progress Note Subjective Additional Comments labs noted exam stable resting comfortable fistula okay Objective Last 24 Hour Vital Signs Date Time Temp Pulse Resp B/P (MAP) Pulse Ox O2 Delivery O2 Flow Rate FiO2 03/28/20 16:00 97.8 76 18 106/69 (81) 98 03/28/20 12:00 97.5 72 19 110/67 (81) 96 03/28/20 09:00 Room Air 03/28/20 08:00 98.1 78 18 105/69 (81) 93 03/28/20 04:00 96.0 74 18 127/83 (98) 99 03/28/20 00:00 96.8 81 18 90/64 (73) 96 I&O Intake and Output 03/27/20 03/28/20 19:00 07:00 Intake Total 118 ml Balance 118 ml Other 118 ml # Bowel Movements 1 Dressing: dry Wound: clean Cardiovascular: RSR Respiratory: decreased breath sounds Abdomen: soft, non-tender, present bowel sounds Extremities: no tenderness, no cyanosis, other Laboratory Tests Test 03/28/20 04:00 White Blood Count 8.1 K/UL (4.8-10.8) Red Blood Count 4.26 M/UL (4.20-5.40) Hemoglobin 10.4 G/DL (12.0-16.0) L Hematocrit 33.6 % (37.0-47.0) L Mean Corpuscular Volume 79 FL (80-99) L Mean Corpuscular Hemoglobin 24.4 PG (27.0-31.0) L Mean Corpuscular Hemoglobin Concent 31.0 G/DL (32.0-36.0) L Red Cell Distribution Width 20.0 % (11.6-14.8) H Platelet Count 158 K/UL (150-450) Mean Platelet Volume 6.8 FL (6.5-10.1) Neutrophils (%) (Auto) 54.7 % (45.0-75.0) Lymphocytes (%) (Auto) 26.3 % (20.0-45.0) Monocytes (%) (Auto) 11.9 % (1.0-10.0) H Eosinophils (%) (Auto) 6.3 % (0.0-3.0) H Basophils (%) (Auto) 0.8 % (0.0-2.0) Sodium Level 137 MMOL/L (136-145) Potassium Level 4.6 MMOL/L (3.5-5.1) Chloride Level 95 MMOL/L (98-107) L Carbon Dioxide Level 26 MMOL/L (21-32) Anion Gap 16 mmol/L (5-15) H Blood Urea Nitrogen 65 mg/dL (7-18) H Creatinine 9.8 MG/DL (0.55-1.30) H Estimat Glomerular Filtration Rate 4.8 mL/min (>60) Glucose Level 128 MG/DL (74-106) H Calcium Level 9.6 MG/DL (8.5-10.1) Phosphorus Level 4.3 MG/DL (2.5-4.9) Magnesium Level 3.2 MG/DL (1.8-2.4) H Total Bilirubin 1.0 MG/DL (0.2-1.0) Aspartate Amino Transf (AST/SGOT) 41 U/L (15-37) H Alanine Aminotransferase (ALT/SGPT) 53 U/L (12-78) Alkaline Phosphatase 280 U/L (46-116) H C-Reactive Protein, Quantitative 1.4 mg/dL (0.00-0.90) H Pro-B-Type Natriuretic Peptide 3721 pg/mL (0-125) H Total Protein 8.3 G/DL (6.4-8.2) H Albumin 3.4 G/DL (3.4-5.0) Globulin 4.9 g/dL Albumin/Globulin Ratio 0.7 (1.0-2.7) L Plan Problems: (1) COVID-19 virus infection Assessment & Plan: positive on admission now negative (2) Bleeding from dialysis shunt Assessment & Plan: right upper arm fistula with thrill and proximal pulse dressings saturated but no active bleeding okay to use (3) Bacteremia Assessment & Plan: 64-year-old female with bacteremia currently admitted for some time [facility] has been on IV antibiotics per infectious disease and has had multiple peripheral lines in the past PICC line's which she is removed. She recently had a PICC line placed in the left upper arm approximately 03/19 which she now removed when she was agitated. She has been removing these lines for some time now and is not amenable to restraints or cognitive resuscitation. She currently is without IV access. Given her history and current condition and agitation appreciate psych input and medications. Unfortunately I do not believe she is safe for central line placement for 2 reasons 1 day very difficult to place central line in agitated state as she is not amenable to one being placed to she will likely remove this line immediately. I spoke with nephrology and ID and we have come up with a plan to keep patient on oral medications and for antibiotics we will switch to vancomycin which will get given with her dialysis which she is and has been tolerating. Will follow along if any changes will plan for insertion will attempt peripheral first before central. Okay to be without line for now. Thank you allowing me to participate patient's care DAILY ESTIMATED NEEDS: Needs based on obesity, pulmonary, HD, wound 78kg abw 20-25 kcals/kg 7624-0342 total kcals 1.25-1.8 g protein/kg 98-140 g total protein per MD, pt on HD NUTRITION DIAGNOSIS: * Swallowing difficulty R/T respiratory status as evidenced by pt orally intubated, now s/p extubation, s/p pulling out NGT, now on pureed moist texture w/ NTL. * Altered nutrition related lab values R/T ESRD as evidenced by elev creat (9.0), elev BNP (>16960->43989), elev phos (6.0-> wnl->5.5-> wnl). CURRENT DIET:Renal, pureed moist w/ NTL + Nepro BID PO DIET RECOMMENDATIONS: RENAL + CCHO MED/ texture per OFFICE CLERK ROUTINE ADDITIONAL RECOMMENDATIONS: 1) Calibrated bedscale wt for accurate CBW- daily wts for ESRD dx wts in the 210's vs 240's a few week ago 2) Monitor BGs closely, for hypoglycemia h/o frequent hypoglycemia during prev admissions 3) Monitor PO intake closely: appears to be improved at this time -> monitor need to decrease Nepro HPN 4) Add Nephrovite x 1 for skin integrity Nestor Dyson March 28, 2020 21:32
[2020-03-28] MEDS: HYDROcodone/Acetamin 10/325 tab GT PRN (22:47)
[2020-03-29] VITALS: BP 140/60
--- NOTE | 2020-03-29 00:30 | NUR ---
NURSE NOTES: [facility] service called regarding pt's HD that scheduled. Message left with Jaiden to have the HD nurse call us.
--- NOTE | 2020-03-29 03:55 | NUR ---
NURSE NOTES: [facility] HD service is called again, message left with Jaiden. awaiting call back.
[2020-03-29 04:00] VITALS: BP 139/62
[2020-03-29] MEDS: NovoLOG Insulin Flexpen SUBQ SCH ×4 (05:55→23:53)
[2020-03-29 06:39] LABS: BASOPHILS % (AUTO) 0.9 % (0.0-2.0); EOSINOPHILS % (AUTO) 7.6 % (0.0-3.0); HEMATOCRIT 32.6 % (37.0-47.0); HEMOGLOBIN 10.2 G/DL (12.0-16.0); LYMPHOCYTES % (AUTO) 25.6 % (20.0-45.0); MEAN CORPUSCULAR VOLUME 79 FL (80-99); MONOCYTES % (AUTO) 11.9 % (1.0-10.0); NEUTROPHILS % (AUTO) 53.9 % (45.0-75.0); PLATELET COUNT 141 K/UL (150-450); RED BLOOD COUNT 4.14 M/UL (4.20-5.40); RED CELL DISTRIBUTION WIDTH 20.7 % (11.6-14.8); WHITE BLOOD COUNT 7.7 K/UL (4.8-10.8)
--- NOTE | 2020-03-29 06:55 | NUR ---
NURSE NOTES: HD nurse finally called back, she said she will come to to HD today. Dr. Hunter called and informed.
[2020-03-29 06:56] LABS: ANION GAP 14 mmol/L (5-15); BLOOD UREA NITROGEN 75 mg/dL (7-18); CALCIUM 9.5 MG/DL (8.5-10.1); CARBON DIOXIDE 27 MMOL/L (21-32); CHLORIDE 94 MMOL/L (98-107); POTASSIUM 4.6 MMOL/L (3.5-5.1); SODIUM 135 MMOL/L (136-145)
--- NOTE | 2020-03-29 07:20 | NUR ---
NURSE NOTES: Received patient in bed. Awake, A/O x3. LOWER BRULE. On room air. Patient denies pain. No IV site at this time. Right upper arm dialysis shunt intact. Bed at the lowest position, bed alarm on, bed locked, call light within reach. Patient placed in a room close to the nurses station for safety.
--- NOTE | 2020-03-29 07:20 | NUR ---
HAND-OFF: Report given to Panfilo Doe RN.Informed that pt needs to have HD today, to follow up with the HD nurse. HD nurse to give vancomycin during HD as patient has no IV access. Informed pt is Fall Risk.
[2020-03-29 08:00] VITALS: BP 130/65
[2020-03-29] MEDS: Thiamine 100mg tab ORAL SCH (08:38)
[2020-03-29] MEDS: Memantine 5 MG TAB ORAL SCH (08:38)
[2020-03-29] MEDS: Pyridoxine 50mg tab ORAL SCH (08:39)
[2020-03-29] MEDS: Renvela 800mg Pkt NG SCH ×3 (08:39→17:50)
[2020-03-29] MEDS ORDERED: Vancomycin 1 GM in NS 275 ML IVPB PRN (08:45)
[2020-03-29] MEDS: Heparin 5000 units/ml inj SUBQ SCH ×2 (09:00→21:00)
--- NOTE | 2020-03-29 09:15 | Progress Note ---
DATE: 03/26/2020 SUBJECTIVE: This is a 64-year-old female patient. She has got respiratory insufficiency, but she also has ____ anxiety and the patient also has psychomotor agitation. That is why, her attending physician has requested daily psychiatric consultation of this patient. The patient is seen and assessed at bedside. She does have some mood lability, agitation, and psychomotor agitation. She also has acute renal failure . DIAGNOSIS: Major depressive disorder, mild, recurrent with psychotic features. PLAN: Namenda 5 mg daily, Ativan 1 mg every 6 hours p.r.n. anxiety and agitation. Twenty minutes of insight-oriented psychotherapy to help her understand her medical and psychiatric condition better impulse control and behavior on the unit. Chart reviewed. Discussed with staff. Seen and assessed at bedside. . Twenty minutes of insight-oriented psychotherapy provided. Iker Lawrence M.D. DR: DONNELL JOB#: [id number] CC:
--- NOTE | 2020-03-29 09:46 | General Progress Note ---
Assessment/Plan Problem List: (1) Obesity (BMI 30-39.9) ICD Codes: E66.9 - Obesity, unspecified SNOMED: 970857654, 782875756 (2) COVID-19 virus infection ICD Codes: U07.1 - COVID-19 SNOMED: 620317205 (3) Acute respiratory failure ICD Codes: J96.00 - Acute respiratory failure, unspecified whether with hypoxia or hypercapnia SNOMED: 35739188 (4) Blindness of both eyes ICD Codes: H54.0 - Blindness SNOMED: 631310265 (5) ESRD (end stage renal disease) on dialysis ICD Codes: N18.6 - End stage renal disease; Z99.2 - Dependence on renal dialysis SNOMED: 801379112 (6) Anemia ICD Codes: D64.9 - Anemia, unspecified SNOMED: 343135565 (7) Diabetes ICD Codes: E11.9 - Type 2 diabetes mellitus without complications SNOMED: 93592207 (8) AMS (altered mental status) ICD Codes: R41.82 - Altered mental status, unspecified SNOMED: 282112312 Status: unchanged Assessment/Plan: vent abx dialysis cbc bmp am ltach eval Subjective Constitutional: Reports: weakness Allergies: Coded Allergies: NO KNOWN ALLERGIES (Unverified Allergy, Unknown, 10/15/15) All Systems: reviewed and negative except above Subjective lethargic sleepy Objective Last 24 Hour Vital Signs Date Time Temp Pulse Resp B/P (MAP) Pulse Ox O2 Delivery O2 Flow Rate FiO2 03/29/20 04:00 97.8 68 18 139/62 (87) 99 03/29/20 00:00 98.6 88 19 140/60 (86) 93 03/28/20 21:00 Room Air 03/28/20 20:00 97.0 75 18 104/79 (87) 93 03/28/20 16:00 97.8 76 18 106/69 (81) 98 03/28/20 12:00 97.5 72 19 110/67 (81) 96 Intake and Output 03/28/20 03/29/20 19:00 07:00 Intake Total 500 ml Balance 500 ml Other 500 ml # Voids 3 # Bowel Movements 1 1 Laboratory Tests 03/29/20 05:25: White Blood Count 7.7, Red Blood Count 4.14L, Hemoglobin 10.2L, Hematocrit 32.6L , Mean Corpuscular Volume 79L, Mean Corpuscular Hemoglobin 24.7L, Mean Corpuscular Hemoglobin Concent 31.3L, Red Cell Distribution Width 20.7H, Platelet Count 141L, Mean Platelet Volume 7.5, Neutrophils (%) (Auto) 53.9, Lymphocytes (%) (Auto) 25.6, Monocytes (%) (Auto) 11.9H, Eosinophils (%) (Auto) 7.6H, Basophils (%) (Auto) 0.9, Sodium Level 135L, Potassium Level 4.6, Chloride Level 94L, Carbon Dioxide Level 27, Anion Gap 14, Blood Urea Nitrogen 75H, Creatinine 11.0H, Estimat Glomerular Filtration Rate 4.4, Glucose Level 139H, Calcium Level 9.5 Height (Feet): 5 Height (Inches): 7.00 Weight (Pounds): 212 General Appearance: lethargic EENT: normal ENT inspection Neck: normal alignment Cardiovascular: normal rate, regular rhythm Respiratory/Chest: no respiratory distress, no accessory muscle use Extremities: normal inspection Skin: normal pigmentation Roderick Henning DO March 29, 2020 09:46
--- NOTE | 2020-03-29 10:02 | NUR ---
*-*DISCHARGE PLANNING*-* PATIENT HAS BEEN REFERRED TO; [facility] P: [phone] F: [phone] Addendum: 03/29/20 at 1351 by COBY MARTINEZ CM [facility] P: [phone] S/W [place], BELOW THE BASE LINE, NOT ACCEPTING
--- NOTE | 2020-03-29 10:09 | General Progress Note ---
Assessment/Plan Status: unchanged Assessment/Plan: 1. Diabetes. 2. End-stage renal disease, on hemodialysis. 3. Chronic anemia. 4. Obesity. 5. Gastritis. 6. Kidney stones. 7. Abdominal hernia. 8. Hiatal hernia. 9. Cardiomegaly. 10. Hypercholesterolemia. 11. Hypertension. 12. Bilateral eye blindness. 13. Coronary artery disease and cardiac stent placement. 14. History of EtOH and cocaine abuse in the past. 15. Dysphagia abd CT reviewed COVID positive swallow eval appreciated on diet fu cardiology and Id recs HD per nephrology fu labs recent labs and notes reviewed hold GI procedures for now Subjective ROS Limited/Unobtainable: No Allergies: Coded Allergies: NO KNOWN ALLERGIES (Unverified Allergy, Unknown, 10/15/15) Objective Last 24 Hour Vital Signs Date Time Temp Pulse Resp B/P (MAP) Pulse Ox O2 Delivery O2 Flow Rate FiO2 03/29/20 04:00 97.8 68 18 139/62 (87) 99 03/29/20 00:00 98.6 88 19 140/60 (86) 93 03/28/20 21:00 Room Air 03/28/20 20:00 97.0 75 18 104/79 (87) 93 03/28/20 16:00 97.8 76 18 106/69 (81) 98 03/28/20 12:00 97.5 72 19 110/67 (81) 96 Intake and Output 03/28/20 03/29/20 19:00 07:00 Intake Total 500 ml Balance 500 ml Other 500 ml # Voids 3 # Bowel Movements 1 1 Laboratory Tests 03/29/20 05:25: White Blood Count 7.7, Red Blood Count 4.14L, Hemoglobin 10.2L, Hematocrit 32.6L , Mean Corpuscular Volume 79L, Mean Corpuscular Hemoglobin 24.7L, Mean Corpuscular Hemoglobin Concent 31.3L, Red Cell Distribution Width 20.7H, Platelet Count 141L, Mean Platelet Volume 7.5, Neutrophils (%) (Auto) 53.9, Lymphocytes (%) (Auto) 25.6, Monocytes (%) (Auto) 11.9H, Eosinophils (%) (Auto) 7.6H, Basophils (%) (Auto) 0.9, Sodium Level 135L, Potassium Level 4.6, Chloride Level 94L, Carbon Dioxide Level 27, Anion Gap 14, Blood Urea Nitrogen 75H, Creatinine 11.0H, Estimat Glomerular Filtration Rate 4.4, Glucose Level 139H, Calcium Level 9.5 Height (Feet): 5 Height (Inches): 7.00 Weight (Pounds): 212 General Appearance: alert EENT: normal ENT inspection Neck: supple Cardiovascular: normal rate Respiratory/Chest: decreased breath sounds Abdomen: normal bowel sounds, non tender, soft Extremities: non-tender Jamison Garcia MD March 29, 2020 10:09
--- NOTE | 2020-03-29 10:43 | Nephrology Progress Note ---
Assessment/Plan Problem List: (1) Acute respiratory failure (2) ESRD (end stage renal disease) on dialysis (3) UTI (urinary tract infection) (4) Patient is Mandaeism (5) Pacemaker (6) Diabetes (7) Obesity (BMI 30-39.9) Assessment ARDS (adult respiratory distress syndrome) Fever Sepsis UTI (urinary tract infection) Respiratory failure, intubated on ventilator Thrombocytopenia Lymphopenia End stage renal disease on dialysis. Has a right upper arm dialysis fistula as Acces . Getting dialysis Sunday. morbid obesity Anemia / Jehova's witness CAD previous stent HTN- hypertensive urgency upon arrival to [facility]. s/p AVG DM 2 bilateral eye blindness h/o CHF Pacemaker Plan Yesterday's dialysis was not done and I was not informed about it, patient on dialysis this morning !!!!! Antibiotics per IV Today's labs still not drawn most likely the patient refused Previously on Zyvox and cefepime and daptomycin There is an issue with patient's IV line. She has pulled out previous PICC line's. Discussed with RN Previously Patient extubated March 04, and remains extubated, now in MedSurg floor Patient positive for Covid 19 Per ID and pulmonary, Last dialyzed March 23 next dialysis March 25 EPO, thiamin and b6 Phos binders NGT feeding per consultants Remains full code at this time Subjective ROS Limited/Unobtainable: No Constitutional: Reports: malaise, weakness Objective Objective Last 24 Hour Vital Signs Date Time Temp Pulse Resp B/P (MAP) Pulse Ox O2 Delivery O2 Flow Rate FiO2 03/29/20 09:00 Room Air 03/29/20 08:00 97.6 73 18 130/65 (86) 98 03/29/20 04:00 97.8 68 18 139/62 (87) 99 03/29/20 00:00 98.6 88 19 140/60 (86) 93 03/28/20 21:00 Room Air 03/28/20 20:00 97.0 75 18 104/79 (87) 93 03/28/20 16:00 97.8 76 18 106/69 (81) 98 03/28/20 12:00 97.5 72 19 110/67 (81) 96 Intake and Output 03/28/20 03/29/20 19:00 07:00 Intake Total 500 ml Balance 500 ml Other 500 ml # Voids 3 # Bowel Movements 1 1 Laboratory Tests 03/29/20 05:25: White Blood Count 7.7, Red Blood Count 4.14L, Hemoglobin 10.2L, Hematocrit 32.6L , Mean Corpuscular Volume 79L, Mean Corpuscular Hemoglobin 24.7L, Mean Corpuscular Hemoglobin Concent 31.3L, Red Cell Distribution Width 20.7H, Platelet Count 141L, Mean Platelet Volume 7.5, Neutrophils (%) (Auto) 53.9, Lymphocytes (%) (Auto) 25.6, Monocytes (%) (Auto) 11.9H, Eosinophils (%) (Auto) 7.6H, Basophils (%) (Auto) 0.9, Sodium Level 135L, Potassium Level 4.6, Chloride Level 94L, Carbon Dioxide Level 27, Anion Gap 14, Blood Urea Nitrogen 75H, Creatinine 11.0H, Estimat Glomerular Filtration Rate 4.4, Glucose Level 139H, Calcium Level 9.5 Height (Feet): 5 Height (Inches): 7.00 Weight (Pounds): 212 General Appearance: no apparent distress Cardiovascular: normal rate Respiratory/Chest: decreased breath sounds Abdomen: distended Objective No change Bryan Hunter MD March 29, 2020 10:43
--- NOTE | 2020-03-29 11:30 | NUR ---
NURSE NOTES: HD completed. 3 liters removed. VSS. Right upper arm with dry dressing intact.
--- NOTE | 2020-03-29 11:52 | Pulmonology Progress Note ---
Assessment/Plan Problems: (1) Sepsis (2) Bacteremia (3) COVID-19 virus infection (4) Accelerated hypertension (5) At high risk for aspiration (6) ESRD (end stage renal disease) on dialysis (7) Diabetes (8) Patient is Sabianism (9) Morbid obesity Assessment/Plan Covid negative X 2 CLAY and WBC scan pending on Vancomycin and Linezolid on isolation afebrile in the last few days f/u cultures respiratory treatment Subjective ROS Limited/Unobtainable: Yes Interval Events: comfortable, resting Allergies: Coded Allergies: NO KNOWN ALLERGIES (Unverified Allergy, Unknown, 10/15/15) All Systems: reviewed and negative except above Objective Last 24 Hour Vital Signs Date Time Temp Pulse Resp B/P (MAP) Pulse Ox O2 Delivery O2 Flow Rate FiO2 03/29/20 09:00 Room Air 03/29/20 08:00 97.6 73 18 130/65 (86) 98 03/29/20 04:00 97.8 68 18 139/62 (87) 99 03/29/20 00:00 98.6 88 19 140/60 (86) 93 03/28/20 21:00 Room Air 03/28/20 20:00 97.0 75 18 104/79 (87) 93 03/28/20 16:00 97.8 76 18 106/69 (81) 98 03/28/20 12:00 97.5 72 19 110/67 (81) 96 Intake and Output 03/28/20 03/29/20 19:00 07:00 Intake Total 500 ml Balance 500 ml Other 500 ml # Voids 3 # Bowel Movements 1 1 Objective swallow study done, results reviewed General Appearance: cachetic HEENT: normocephalic, atraumatic Respiratory/Chest: chest wall non-tender, lungs clear Breasts: no masses Cardiovascular: normal peripheral pulses, normal rate, other - LUE PICC intact Abdomen: normal bowel sounds, soft, non tender Genitourinary: normal external genitalia Extremities: no cyanosis, other - trace edema BLE, RUE AV shunt + bruit/thrill Skin: no lesions Neurologic/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: 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 normal Lymphatic: no neck adenopathy Laboratory Tests 03/29/20 05:25: White Blood Count 7.7, Red Blood Count 4.14L, Hemoglobin 10.2L, Hematocrit 32.6L , Mean Corpuscular Volume 79L, Mean Corpuscular Hemoglobin 24.7L, Mean Corpuscular Hemoglobin Concent 31.3L, Red Cell Distribution Width 20.7H, Platelet Count 141L, Mean Platelet Volume 7.5, Neutrophils (%) (Auto) 53.9, Lymphocytes (%) (Auto) 25.6, Monocytes (%) (Auto) 11.9H, Eosinophils (%) (Auto) 7.6H, Basophils (%) (Auto) 0.9, Sodium Level 135L, Potassium Level 4.6, Chloride Level 94L, Carbon Dioxide Level 27, Anion Gap 14, Blood Urea Nitrogen 75H, Creatinine 11.0H, Estimat Glomerular Filtration Rate 4.4, Glucose Level 139H, Calcium Level 9.5 Current Medications Medications (Trade) Dose Ordered Sig/Josi Route PRN Reason Start Time Stop Time Status Last Admin Dose Admin Acetaminophen (Tylenol) 650 mg Q4H PRN GT fever 03/10/20 23:45 04/07/20 23:39 Acetaminophen/ Hydrocodone Bitart ([place] 10/325) 1 tab Q4H PRN GT Moderate Pain (Pain Scale 4-6) 03/23/20 13:00 03/30/20 12:56 03/28/20 22:47 Albuterol/ Ipratropium (Combivent Respimat) 1 puff Q4H PRN INH Shortness of Breath 03/10/20 23:45 04/07/20 23:40 Atorvastatin Calcium (Lipitor) 10 mg BEDTIME NG 03/11/20 21:00 05/25/20 20:59 03/28/20 22:30 Chlorhexidine Gluconate (Jenny-Hex 2%) 1 applic DAILY@1999 TOPIC 03/23/20 20:00 06/21/20 19:59 Epoetin Jose De Jesus (Epoetin Jose De Jesus(ESRD on dialysis)) 6,000 unit SUN-SUN-SUN SUBQ 03/26/20 21:00 06/24/20 20:59 03/26/20 21:04 Heparin Sodium (Porcine) (Heparin 5000 units/ml) 5,000 units EVERY 12 HOURS SUBQ 03/11/20 09:00 04/10/20 08:59 03/28/20 22:30 Insulin Aspart (NovoLOG) Q6HR SUBQ 03/11/20 00:00 05/20/20 12:29 03/28/20 18:02 Linezolid (Zyvox) 600 mg EVERY 12 HOURS ORAL 03/25/20 21:00 03/30/20 20:59 03/29/20 08:39 Memantine (Namenda) 5 mg DAILY ORAL 03/22/20 09:00 04/21/20 08:59 03/29/20 08:38 Pantoprazole (Protonix) 40 mg EVERY 12 HOURS ORAL 03/17/20 21:00 04/16/20 20:59 03/29/20 08:39 Pyridoxine HCl (Vitamin B6) 50 mg DAILY ORAL 03/18/20 09:00 04/17/20 08:59 03/29/20 08:39 Sevelamer Carbonate (Renvela) 1,600 mg TID NG 03/18/20 13:00 05/25/20 11:59 03/29/20 08:39 Thiamine HCl (Vitamin B1) 100 mg DAILY ORAL 03/18/20 09:00 04/17/20 08:59 03/29/20 08:38 Vancomycin HCl (Vanco rx to dose) 1 ea DAILY PRN MISC . 03/25/20 14:45 04/24/20 14:44 Vancomycin HCl 1 gm/Sodium Chloride 275 ml @ 183.708 mls/hr ONCE PRN IVPB GIVE WITH HD ON HD DAYS 03/29/20 08:45 03/29/20 23:59 03/29/20 08:40 Vancomycin HCl 1 gm/Sodium Chloride 275 ml @ 183.708 mls/hr TuThSa PRN IVPB GIVE WITH HD ON HD DAYS 03/27/20 09:00 04/01/20 08:59 Meghana Murillo MD March 29, 2020 11:52
[2020-03-29 12:00] VITALS: BP 100/40
--- NOTE | 2020-03-29 12:01 | NUR ---
CASE MANAGEMENT:REVIEW SI;AC RESP FAILURE. ESRD ON HS. COVID-19 NEGATIVE X2 (03/22, 03/24) 98.6 88 19 104/79 96% ON RA NA 136 CL 94 BUN 75 CR 11.30 IS;VANCOMYCIN IV ON HD DAYS ZYVOX PO Q12 HRS BECKY-HEX TOP QD VIT B6 PO QD VIT B1 PO QD PROTONIX PO Q12 HRS MED SURG STATUS DCP;[facility] REFERRAL - ACCEPTANCE PENDING REVIEW CONT IV AND PO ABX MONITOR PO INTAKE S/P NG TUBE
--- NOTE | 2020-03-29 14:03 | Infectious Diseases Prog Note ---
Assessment/Plan Assessment/Plan The patient is a 64-year-old female with Proteus bacteremia Persistent/recurrent S.epi and VRE bactereima (despite 6 weeks of treatment)- highly suspicious for endovascular source (ie AVF infection, endocarditis) 03/09 Bcx 02/27 VRE, S. epi, 03/10 Bcx 02/27 P . mirabilis, probable amp-C; VRE, CONS; 03/11 Bcx 2/2 sets S.epi; 03/15 12/30 S. epi, 11/29 VRE; 03/16 Bcx 3/S.epi, 1/ VRE, 03/20 Bcx 2/4 S/epi; 03/24 Bcx NTD -CT abd/p: Cardiomegaly. Evidence of left ventricular muscular hypertrophy. Bilateral lower lobe and inferior lingular ill-defined parenchymal infiltrates, likely pneumonia but could indicate a component of pulmonary edema. Incidental findings as noted, including right renal cyst, evidence of prior hysterectomy, pacemaker, PICC, coronary stents and calcifications Enlarged heterogeneous thyroid. No acute abdominal process cholelithiasis and/ or gallbladder sludge. Diastasis of the rectus abdominis tendon and small fat- containing ventral hernia, also demonstrated previously. Confirmed COVID-19. 02/19 SARS-CoV PCR positive. -03/22 COVID neg x1 -1st repeat neg 03/11 ; 2nd repeat is positive 03/13; has now 2 neg COVID (03/22 , 03/24) Pneumonia Mild leukocytosis, SP -03/09 u/a wbc 40-60, nit neg, leuk +3 Fever, recurrent, SP VDRF- sp self extubation 03/05, now on at - likely 2/2 COVID, less likely active bacterial superinfection since pt just completed empiric course of antibacterial therapy and sputum cx NG -03/07 CXR: Persistent vascular congestion and suspected interstitial edema.Cardiomegaly with pacer. - 03/01 CXR: Worsening bilateral hazy parenchymal infiltrates, versus edema - 02/20 CXR: Mild pulmonary vascular congestion with subtle bilateral haziness, not significantly changed.Possible tiny pleural effusions. Cardiomegaly. - Bcx ngtd - sp cx normal gui Less likely UTI u/a wbc tnct, nit +, leuk +3; ucx cindy(colonizer) Hx of positive blood culture CONS ,persistent; recurrent 02/04 BCx: CoNS 01/30 Bc: (1/2)CoNS and Citrobacter 3/ , 02/01 Bc: CoNS - (outside facility, # of the +ve cultures are not clear) A 2D echo from outside facility did not show any evidence of vegetation as per Carido pt is high risk for CLAY: ( last admission ) Diabetes. CHF. ESRD. Hypertension. Obesity. 03/08 SP PICC Line placement; removed on 03/15 and new one placed PLAN: COntinue IV Vancomycin #5(abx d#17)- -will dose IV Vancomycin via AVF during HD days given pt lost IV access (had lost it multiple times already, hard stick) Continue Linezolid #12 for synergisms -monitor platelets 03/26 SP IM ertapenem #2 03/24 SP Cefepime #10, Daptomycin #13 03/15 SP Meropenem #4 03/12/20 SP IV Vancomycin #2 03/08 SP vancomycin, day # ? ( will Rx for probable SBE) 02/27 SP plaquenil+azithromycin #5 02/25 SP Ertapenem #8 02/24 DC amikacin #6 Ok to dc COVID isolation (COVID neg x2 03/22 and 03/24) CLAY WBC scan- will need PIV inserted first for tagged wbc- pt hard stick Monitor CBC. Monitor BMP. Monitor cultures f/u Bcx x2 DW RN Subjective Allergies: Coded Allergies: NO KNOWN ALLERGIES (Unverified Allergy, Unknown, 10/15/15) Subjective afebrile repeat Bcx NTD repeat COVID neg x2 Objective Vital Signs Last 24 Hour Vital Signs Date Time Temp Pulse Resp B/P (MAP) Pulse Ox O2 Delivery O2 Flow Rate FiO2 03/29/20 12:00 97.1 75 19 100/40 (60) 97 03/29/20 09:00 Room Air 03/29/20 08:00 97.6 73 18 130/65 (86) 98 03/29/20 04:00 97.8 68 18 139/62 (87) 99 03/29/20 00:00 98.6 88 19 140/60 (86) 93 03/28/20 21:00 Room Air 03/28/20 20:00 97.0 75 18 104/79 (87) 93 03/28/20 16:00 97.8 76 18 106/69 (81) 98 Height (Feet): 5 Height (Inches): 7.00 Weight (Pounds): 212 Objective not seen to limit COVID19 exposure Laboratory Tests Test 03/29/20 05:25 White Blood Count 7.7 K/UL (4.8-10.8) Red Blood Count 4.14 M/UL (4.20-5.40) L Hemoglobin 10.2 G/DL (12.0-16.0) L Hematocrit 32.6 % (37.0-47.0) L Mean Corpuscular Volume 79 FL (80-99) L Mean Corpuscular Hemoglobin 24.7 PG (27.0-31.0) L Mean Corpuscular Hemoglobin Concent 31.3 G/DL (32.0-36.0) L Red Cell Distribution Width 20.7 % (11.6-14.8) H Platelet Count 141 K/UL (150-450) L Mean Platelet Volume 7.5 FL (6.5-10.1) Neutrophils (%) (Auto) 53.9 % (45.0-75.0) Lymphocytes (%) (Auto) 25.6 % (20.0-45.0) Monocytes (%) (Auto) 11.9 % (1.0-10.0) H Eosinophils (%) (Auto) 7.6 % (0.0-3.0) H Basophils (%) (Auto) 0.9 % (0.0-2.0) Sodium Level 135 MMOL/L (136-145) L Potassium Level 4.6 MMOL/L (3.5-5.1) Chloride Level 94 MMOL/L (98-107) L Carbon Dioxide Level 27 MMOL/L (21-32) Anion Gap 14 mmol/L (5-15) Blood Urea Nitrogen 75 mg/dL (7-18) H Creatinine 11.0 MG/DL (0.55-1.30) H Estimat Glomerular Filtration Rate 4.4 mL/min (>60) Glucose Level 139 MG/DL (74-106) H Calcium Level 9.5 MG/DL (8.5-10.1) Current Medications Medications (Trade) Dose Ordered Sig/Josi Route PRN Reason Start Time Stop Time Status Last Admin Dose Admin Acetaminophen (Tylenol) 650 mg Q4H PRN GT fever 03/10/20 23:45 04/07/20 23:39 Acetaminophen/ Hydrocodone Bitart ([place] 10/325) 1 tab Q4H PRN GT Moderate Pain (Pain Scale 4-6) 03/23/20 13:00 03/30/20 12:56 03/28/20 22:47 Albuterol/ Ipratropium (Combivent Respimat) 1 puff Q4H PRN INH Shortness of Breath 03/10/20 23:45 04/07/20 23:40 Atorvastatin Calcium (Lipitor) 10 mg BEDTIME NG 03/11/20 21:00 05/25/20 20:59 03/28/20 22:30 Chlorhexidine Gluconate (Jenny-Hex 2%) 1 applic DAILY@1999 TOPIC 03/23/20 20:00 06/21/20 19:59 Epoetin Jose De Jesus (Epoetin Jose De Jesus(ESRD on dialysis)) 6,000 unit SUN-SUN-SUN SUBQ 03/26/20 21:00 06/24/20 20:59 03/26/20 21:04 Heparin Sodium (Porcine) (Heparin 5000 units/ml) 5,000 units EVERY 12 HOURS SUBQ 03/11/20 09:00 04/10/20 08:59 03/28/20 22:30 Insulin Aspart (NovoLOG) Q6HR SUBQ 03/11/20 00:00 05/20/20 12:29 03/28/20 18:02 Linezolid (Zyvox) 600 mg EVERY 12 HOURS ORAL 03/25/20 21:00 03/30/20 20:59 03/29/20 08:39 Memantine (Namenda) 5 mg DAILY ORAL 03/22/20 09:00 04/21/20 08:59 03/29/20 08:38 Pantoprazole (Protonix) 40 mg EVERY 12 HOURS ORAL 03/17/20 21:00 04/16/20 20:59 03/29/20 08:39 Pyridoxine HCl (Vitamin B6) 50 mg DAILY ORAL 03/18/20 09:00 04/17/20 08:59 03/29/20 08:39 Sevelamer Carbonate (Renvela) 1,600 mg TID NG 03/18/20 13:00 05/25/20 11:59 03/29/20 12:48 Thiamine HCl (Vitamin B1) 100 mg DAILY ORAL 03/18/20 09:00 04/17/20 08:59 03/29/20 08:38 Vancomycin HCl (Vanco rx to dose) 1 ea DAILY PRN MISC . 03/25/20 14:45 04/24/20 14:44 Vancomycin HCl 1 gm/Sodium Chloride 275 ml @ 183.708 mls/hr ONCE PRN IVPB GIVE WITH HD ON HD DAYS 03/29/20 08:45 03/29/20 23:59 03/29/20 08:40 Vancomycin HCl 1 gm/Sodium Chloride 275 ml @ 183.708 mls/hr TuThSa PRN IVPB GIVE WITH HD ON HD DAYS 03/27/20 09:00 04/01/20 08:59 Susi Vanegas M.D. March 29, 2020 14:03
[2020-03-29] MEDS ORDERED: Varibar Nectar 240ml MC PRN (14:30)
[2020-03-29] MEDS ORDERED: Varibar Pudding 230ml MC PRN (14:30)
[2020-03-29] MEDS ORDERED: Varibar Honey 250ml MC PRN (14:30)
--- NOTE | 2020-03-29 14:56 | Surgery Progress Note ---
Surgery Progress Note Subjective Additional Comments labs stable exam unchanged does not want to participate in exam today Objective Last 24 Hour Vital Signs Date Time Temp Pulse Resp B/P (MAP) Pulse Ox O2 Delivery O2 Flow Rate FiO2 03/29/20 12:00 97.1 75 19 100/40 (60) 97 03/29/20 09:00 Room Air 03/29/20 08:00 97.6 73 18 130/65 (86) 98 03/29/20 04:00 97.8 68 18 139/62 (87) 99 03/29/20 00:00 98.6 88 19 140/60 (86) 93 03/28/20 21:00 Room Air 03/28/20 20:00 97.0 75 18 104/79 (87) 93 03/28/20 16:00 97.8 76 18 106/69 (81) 98 I&O Intake and Output 03/28/20 03/29/20 19:00 07:00 Intake Total 500 ml Balance 500 ml Other 500 ml # Voids 3 # Bowel Movements 1 1 Dressing: other Wound: other Drains: other Cardiovascular: other Respiratory: other Abdomen: other Extremities: other Laboratory Tests Test 03/29/20 05:25 White Blood Count 7.7 K/UL (4.8-10.8) Red Blood Count 4.14 M/UL (4.20-5.40) L Hemoglobin 10.2 G/DL (12.0-16.0) L Hematocrit 32.6 % (37.0-47.0) L Mean Corpuscular Volume 79 FL (80-99) L Mean Corpuscular Hemoglobin 24.7 PG (27.0-31.0) L Mean Corpuscular Hemoglobin Concent 31.3 G/DL (32.0-36.0) L Red Cell Distribution Width 20.7 % (11.6-14.8) H Platelet Count 141 K/UL (150-450) L Mean Platelet Volume 7.5 FL (6.5-10.1) Neutrophils (%) (Auto) 53.9 % (45.0-75.0) Lymphocytes (%) (Auto) 25.6 % (20.0-45.0) Monocytes (%) (Auto) 11.9 % (1.0-10.0) H Eosinophils (%) (Auto) 7.6 % (0.0-3.0) H Basophils (%) (Auto) 0.9 % (0.0-2.0) Sodium Level 135 MMOL/L (136-145) L Potassium Level 4.6 MMOL/L (3.5-5.1) Chloride Level 94 MMOL/L (98-107) L Carbon Dioxide Level 27 MMOL/L (21-32) Anion Gap 14 mmol/L (5-15) Blood Urea Nitrogen 75 mg/dL (7-18) H Creatinine 11.0 MG/DL (0.55-1.30) H Estimat Glomerular Filtration Rate 4.4 mL/min (>60) Glucose Level 139 MG/DL (74-106) H Calcium Level 9.5 MG/DL (8.5-10.1) Plan Problems: (1) COVID-19 virus infection Assessment & Plan: positive on admission now negative (2) Bleeding from dialysis shunt Assessment & Plan: right upper arm fistula with thrill and proximal pulse dressings saturated but no active bleeding okay to use (3) Bacteremia Assessment & Plan: 64-year-old female with bacteremia currently admitted for some time [facility] has been on IV antibiotics per infectious disease and has had multiple peripheral lines in the past PICC line's which she is removed. She recently had a PICC line placed in the left upper arm approximately 03/19 which she now removed when she was agitated. She has been removing these lines for some time now and is not amenable to restraints or cognitive resuscitation. She currently is without IV access. Given her history and current condition and agitation appreciate psych input and medications. Unfortunately I do not believe she is safe for central line placement for 2 reasons 1 day very difficult to place central line in agitated state as she is not amenable to one being placed to she will likely remove this line immediately. I spoke with nephrology and ID and we have come up with a plan to keep patient on oral medications and for antibiotics we will switch to vancomycin which will get given with her dialysis which she is and has been tolerating. Will follow along if any changes will plan for insertion will attempt peripheral first before central. Okay to be without line for now. Thank you allowing me to participate patient's care DAILY ESTIMATED NEEDS: Needs based on obesity, pulmonary, HD, wound 78kg abw 20-25 kcals/kg [id number] total kcals 1.25-1.8 g protein/kg 98-140 g total protein per MD, pt on HD NUTRITION DIAGNOSIS: * Swallowing difficulty R/T respiratory status as evidenced by pt orally intubated, now s/p extubation, s/p pulling out NGT, now on pureed moist texture w/ NTL. * Altered nutrition related lab values R/T ESRD as evidenced by elev creat (9.0), elev BNP (>41392->22175), elev phos (6.0-> wnl->5.5-> wnl). CURRENT DIET:Renal, pureed moist w/ NTL + Nepro BID PO DIET RECOMMENDATIONS: RENAL + CCHO MED/ texture per [employer]PER ADDITIONAL RECOMMENDATIONS: 1) Calibrated bedscale wt for accurate CBW- daily wts for ESRD dx wts in the 210's vs 240's a few week ago 2) Monitor BGs closely, for hypoglycemia h/o frequent hypoglycemia during prev admissions 3) Monitor PO intake closely: appears to be improved at this time -> monitor need to decrease Nepro HPN 4) Add Nephrovite x 1 for skin integrity Nestor Dyson March 29, 2020 14:56
[2020-03-29 16:00] VITALS: BP 109/50
--- NOTE | 2020-03-29 17:15 | Progress Note ---
DATE: 03/29/2020 SUBJECTIVE: This is a 64-year-old female patient. She has respiratory insufficiency. She has got alternations in mood lability, decline in cognition below the baseline. That is why, her attending physician has requested daily psychiatric consultation. Patient appears to have some psychomotor agitation, mood lability, and anxiety. MENTAL STATUS EXAMINATION: This is a 64-year-old female. Appearance is disheveled. Attitude, irritable and agitated. Affect, guarded and restricted. Intellect poor. Mood, depressed and anxious. Motor activity, psychomotor agitation. Insight and judgment is poor. DIAGNOSIS: Major depressive disorder, mild, recurrent with psychotic features. PLAN: Namenda 5 mg daily, Ativan 1 every 6 hours p.r.n. anxiety and agitation. Twenty minutes of insight-oriented psychotherapy help her understand her medical and psychiatric conditions, so she will have better understanding and impulse control and behavior on the unit. Chart reviewed. Discussed with staff. Seen and assessed at the bedside. Iker Lawrence M.D. DR: BÁRBARA JOB#: [id number] CC:
--- NOTE | 2020-03-29 18:13 | Cardiology Progress Note ---
Assessment/Plan Assessment/Plan 1. Respiratory failure. 2. History of obesity hypoventilation syndrome. 3. History of pulmonary hypertension previously. 4. Urinary tract infection. 5. covid 19 infection confimred 6. pneumonia. 7. History of bacteremia with Staph epi recently on 02/05/2020. 8. somnolence 9. Polymicrobial bacteremia repeat blood cx neg echo transthoracic on 03/24/2020 was neg and no valve regurgitation afebrile normal wbc this pt is felt to be high risk for mayco and will require intubation for this procedure per my last discussion with dr hazel, i understand that mayco has been ordered however in light of all the above , i think we should have at least a reasonable chance that this test will be helpful if + or if - before putting her through all of this i think if the shunt can be a source then it should be evaluated first to see if that will explain all the bacteremia before putting her through this high risk mayco i did not examine pt personally with confirmed covid 19 sat normal off oxygen all labs reviewed wbc normal still , sed rate is only 38!!! no fever since 03/05 despite all the bacteremia !! covid neg from 03/11 + on 03/13, repeat neg 03/23 and 03/24 need wbc scan for avf eval per id Subjective Subjective Awake, A/O x3. [place]. On room air. Patient denies pain. No IV site at this time. Right upper arm dialysis shunt intact. Objective Last 24 Hour Vital Signs Date Time Temp Pulse Resp B/P (MAP) Pulse Ox O2 Delivery O2 Flow Rate FiO2 03/29/20 12:00 97.1 75 19 100/40 (60) 97 03/29/20 09:00 Room Air 03/29/20 08:00 97.6 73 18 130/65 (86) 98 03/29/20 04:00 97.8 68 18 139/62 (87) 99 03/29/20 00:00 98.6 88 19 140/60 (86) 93 03/28/20 21:00 Room Air 03/28/20 20:00 97.0 75 18 104/79 (87) 93 Intake and Output 03/28/20 03/29/20 19:00 07:00 Intake Total 500 ml Balance 500 ml Other 500 ml # Voids 3 # Bowel Movements 1 1 Laboratory Tests Test 03/29/20 05:25 5/4/20 15:30 White Blood Count 7.7 K/UL (4.8-10.8) Red Blood Count 4.14 M/UL (4.20-5.40) L Hemoglobin 10.2 G/DL (12.0-16.0) L Hematocrit 32.6 % (37.0-47.0) L Mean Corpuscular Volume 79 FL (80-99) L Mean Corpuscular Hemoglobin 24.7 PG (27.0-31.0) L Mean Corpuscular Hemoglobin Concent 31.3 G/DL (32.0-36.0) L Red Cell Distribution Width 20.7 % (11.6-14.8) H Platelet Count 141 K/UL (150-450) L Mean Platelet Volume 7.5 FL (6.5-10.1) Neutrophils (%) (Auto) 53.9 % (45.0-75.0) Lymphocytes (%) (Auto) 25.6 % (20.0-45.0) Monocytes (%) (Auto) 11.9 % (1.0-10.0) H Eosinophils (%) (Auto) 7.6 % (0.0-3.0) H Basophils (%) (Auto) 0.9 % (0.0-2.0) Sodium Level 135 MMOL/L (136-145) L Potassium Level 4.6 MMOL/L (3.5-5.1) Chloride Level 94 MMOL/L (98-107) L Carbon Dioxide Level 27 MMOL/L (21-32) Anion Gap 14 mmol/L (5-15) Blood Urea Nitrogen 75 mg/dL (7-18) H Creatinine 11.0 MG/DL (0.55-1.30) H Estimat Glomerular Filtration Rate 4.4 mL/min (>60) Glucose Level 139 MG/DL (74-106) H Calcium Level 9.5 MG/DL (8.5-10.1) Random Vancomycin Level Pending Wilfredo Reyna MD March 29, 2020 18:13
--- NOTE | 2020-03-29 19:15 | NUR ---
HAND-OFF: Report given to Marquis SLOAN.
--- NOTE | 2020-03-29 19:16 | NUR ---
NURSE NOTES: Receive pt on the bed sleeping. Pt is alert and oriented x3-4 , no sob, no complain of pain, vitals are stable and no fever. pt is on room air. Bed in the lower position, alarm on, and locked. Call light within reach. We will keep monitoring
[2020-03-29 20:00] VITALS: BP 110/49
[2020-03-29] MEDS: Dyna-Hex 2% Top Sol 2oz TOPIC SCH (20:00)
[2020-03-29] MEDS ORDERED: Vancomycin 500mg/D5W 110ml IVPB SCH ×2 (21:00)
[2020-03-29] MEDS ORDERED: Epoetin Alfa-EPBX(ESRD on dialysis)2000 units/ml vial SUBQ SCH (21:00)
--- NOTE | 2020-03-29 21:00 | NUR ---
NURSE NOTES: I hold the heparin because pt platelet level is lower than 150.
[2020-03-30] VITALS: BP 94/58
[2020-03-30 04:00] VITALS: BP 139/49
[2020-03-30] MEDS: NovoLOG Insulin Flexpen SUBQ SCH ×3 (06:00→18:04)
--- NOTE | 2020-03-30 07:00 | NUR ---
HAND-OFF: Report given to NATHALIA Garvey.
[2020-03-30 07:01] LABS: BASOPHILS % (AUTO) 0.9 % (0.0-2.0); EOSINOPHILS % (AUTO) 5.6 % (0.0-3.0); HEMATOCRIT 31.4 % (37.0-47.0); HEMOGLOBIN 9.7 G/DL (12.0-16.0); LYMPHOCYTES % (AUTO) 25.9 % (20.0-45.0); MEAN CORPUSCULAR VOLUME 80 FL (80-99); MONOCYTES % (AUTO) 10.9 % (1.0-10.0); NEUTROPHILS % (AUTO) 56.7 % (45.0-75.0); PLATELET COUNT 135 K/UL (150-450); RED BLOOD COUNT 3.93 M/UL (4.20-5.40); RED CELL DISTRIBUTION WIDTH 20.4 % (11.6-14.8); WHITE BLOOD COUNT 6.9 K/UL (4.8-10.8)
--- NOTE | 2020-03-30 07:10 | NUR ---
NURSE NOTES: Received patient in bed. Awake, A/O x3. On room air. Patient denies pain. No IV site. Right upper arm dialysis shunt in place. Bed low and locked, bed alarm on, call light within reach.
[2020-03-30 07:12] LABS: ANION GAP 14 mmol/L (5-15); BLOOD UREA NITROGEN 65 mg/dL (7-18); CARBON DIOXIDE 27 MMOL/L (21-32); CHLORIDE 96 MMOL/L (98-107); CREATININE 9.8 MG/DL (0.55-1.30); POTASSIUM 4.6 MMOL/L (3.5-5.1); SODIUM 137 MMOL/L (136-145)
--- NOTE | 2020-03-30 07:20 | NUR ---
HAND-OFF: Report given to Verito SLOAN. Addendum: 03/30/20 at 1941 by Guru Diaz RN wrong time.
[2020-03-30 08:00] VITALS: BP 127/65
[2020-03-30] MEDS: Pyridoxine 50mg tab ORAL SCH (08:10)
[2020-03-30] MEDS: Memantine 5 MG TAB ORAL SCH (08:10)
[2020-03-30] MEDS: Thiamine 100mg tab ORAL SCH (08:10)
[2020-03-30] MEDS: Heparin 5000 units/ml inj SUBQ SCH ×2 (09:00→20:57)
--- NOTE | 2020-03-30 09:06 | NUR ---
NURSE NOTES: Subcut heparin held d/t downtrending platelets.
[2020-03-30] MEDS: Renvela 800mg Pkt NG SCH ×3 (09:48→17:58)
--- NOTE | 2020-03-30 10:50 | Pulmonology Progress Note ---
Assessment/Plan Problems: (1) Sepsis (2) Bacteremia (3) COVID-19 virus infection (4) Accelerated hypertension (5) At high risk for aspiration (6) ESRD (end stage renal disease) on dialysis (7) Diabetes (8) Patient is Congregation (9) Morbid obesity Assessment/Plan Has diarrhea, Cdiff pending Covid negative X 2 CLYA and WBC scan pending on Vancomycin and Linezolid on isolation afebrile in the last few days f/u cultures respiratory treatment Subjective ROS Limited/Unobtainable: No Interval Events: comfortable, resting Allergies: Coded Allergies: NO KNOWN ALLERGIES (Unverified Allergy, Unknown, 10/15/15) All Systems: reviewed and negative except above Objective Last 24 Hour Vital Signs Date Time Temp Pulse Resp B/P (MAP) Pulse Ox O2 Delivery O2 Flow Rate FiO2 03/30/20 09:00 Room Air 03/30/20 08:00 98.8 73 18 127/65 (85) 96 03/30/20 04:00 98.0 69 19 139/49 (79) 96 03/30/20 00:00 98.2 81 19 94/58 (70) 95 03/29/20 21:00 Room Air 03/29/20 20:00 98.9 73 19 110/49 (69) 96 03/29/20 16:00 97.6 81 20 109/50 (69) 97 03/29/20 12:00 97.1 75 19 100/40 (60) 97 Intake and Output 03/29/20 03/30/20 19:00 07:00 Intake Total 600 ml Output Total 3000 ml Balance -2400 ml Intake Oral 600 ml Hemodialysis UF 3000 ml # Voids 2 2 # Bowel Movements 2 2 General Appearance: cachetic HEENT: normocephalic, atraumatic Respiratory/Chest: chest wall non-tender, lungs clear Breasts: no masses Cardiovascular: normal peripheral pulses, normal rate, other - LUE PICC intact Abdomen: normal bowel sounds, soft, non tender Genitourinary: normal external genitalia Extremities: no cyanosis, other - trace edema BLE, RUE AV shunt + bruit/thrill Skin: no lesions 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 Lymphatic: no neck adenopathy Laboratory Tests 03/29/20 15:30: Random Vancomycin Level 13.3 03/30/20 05:40: White Blood Count 6.9, Red Blood Count 3.93L, Hemoglobin 9.7L, Hematocrit 31.4L , Mean Corpuscular Volume 80, Mean Corpuscular Hemoglobin 24.7L, Mean Corpuscular Hemoglobin Concent 30.9L, Red Cell Distribution Width 20.4H, Platelet Count 135L, Mean Platelet Volume 6.9, Neutrophils (%) (Auto) 56.7, Lymphocytes (%) (Auto) 25.9, Monocytes (%) (Auto) 10.9H, Eosinophils (%) (Auto) 5.6H, Basophils (%) (Auto) 0.9, Sodium Level 137, Potassium Level 4.6, Chloride Level 96L, Carbon Dioxide Level 27, Anion Gap 14, Blood Urea Nitrogen 65H, Creatinine 9.8H, Estimat Glomerular Filtration Rate 4.8, Glucose Level 126H, Calcium Level 10.0 Current Medications Medications (Trade) Dose Ordered Sig/Josi Route PRN Reason Start Time Stop Time Status Last Admin Dose Admin Acetaminophen (Tylenol) 650 mg Q4H PRN GT fever 03/10/20 23:45 04/07/20 23:39 Acetaminophen/ Hydrocodone Bitart ([place] 10/325) 1 tab Q4H PRN GT Moderate Pain (Pain Scale 4-6) 03/23/20 13:00 03/30/20 12:56 03/28/20 22:47 Albuterol/ Ipratropium (Combivent Respimat) 1 puff Q4H PRN INH Shortness of Breath 03/10/20 23:45 04/07/20 23:40 Atorvastatin Calcium (Lipitor) 10 mg BEDTIME NG 03/11/20 21:00 05/25/20 20:59 03/29/20 20:30 Barium Sulfate (Varibar Honey) 250 ml NOW PRN MC RAD 03/29/20 14:30 04/01/20 14:24 Barium Sulfate (Varibar Drumright) 240 ml NOW PRN MC RAD 03/29/20 14:30 04/01/20 14:24 Barium Sulfate (Varibar Pudding) 230 ml NOW PRN MC RAD 03/29/20 14:30 04/01/20 14:24 Chlorhexidine Gluconate (Jenny-Hex 2%) 1 applic DAILY@2000 TOPIC 03/23/20 20:00 06/21/20 19:59 Epoetin Jose De Jesus (Epoetin Jose De Jesus(ESRD on dialysis)) 6,000 unit SUN-SUN-SUN SUBQ 03/31/20 21:00 06/29/20 20:59 Heparin Sodium (Porcine) (Heparin 5000 units/ml) 5,000 units EVERY 12 HOURS SUBQ 03/11/20 09:00 04/10/20 08:59 03/28/20 22:30 Insulin Aspart (NovoLOG) Q6HR SUBQ 03/11/20 00:00 05/20/20 12:29 03/29/20 23:53 Linezolid (Zyvox) 600 mg EVERY 12 HOURS ORAL 03/25/20 21:00 04/03/20 23:59 03/30/20 08:10 Memantine (Namenda) 5 mg DAILY ORAL 03/22/20 09:00 04/21/20 08:59 03/30/20 08:10 Pantoprazole (Protonix) 40 mg EVERY 12 HOURS ORAL 03/17/20 21:00 04/16/20 20:59 03/30/20 08:10 Pyridoxine HCl (Vitamin B6) 50 mg DAILY ORAL 03/18/20 09:00 04/17/20 08:59 03/30/20 08:10 Sevelamer Carbonate (Renvela) 1,600 mg TID NG 03/18/20 13:00 05/25/20 11:59 03/30/20 09:48 Thiamine HCl (Vitamin B1) 100 mg DAILY ORAL 03/18/20 09:00 04/17/20 08:59 03/30/20 08:10 Vancomycin HCl (Vanco rx to dose) 1 ea DAILY PRN MISC . 03/25/20 14:45 04/24/20 14:44 Vancomycin HCl 1 gm/Sodium Chloride 275 ml @ 183.708 mls/hr TuThSa PRN IVPB GIVE WITH HD ON HD DAYS 03/27/20 09:00 04/03/20 23:59 Meghana Murillo MD March 30, 2020 10:50
--- NOTE | 2020-03-30 11:03 | General Progress Note ---
Assessment/Plan Status: unchanged Assessment/Plan: 1. Diabetes. 2. End-stage renal disease, on hemodialysis. 3. Chronic anemia. 4. Obesity. 5. Gastritis. 6. Kidney stones. 7. Abdominal hernia. 8. Hiatal hernia. 9. Cardiomegaly. 10. Hypercholesterolemia. 11. Hypertension. 12. Bilateral eye blindness. 13. Coronary artery disease and cardiac stent placement. 14. History of EtOH and cocaine abuse in the past. 15. Dysphagia abd CT reviewed COVID positive swallow eval appreciated on diet fu cardiology and Id recs HD per nephrology fu labs recent labs and notes reviewed hold GI procedures for now check stool ob pending CLAY and WBC scan Subjective ROS Limited/Unobtainable: No Allergies: Coded Allergies: NO KNOWN ALLERGIES (Unverified Allergy, Unknown, 10/15/15) Objective Last 24 Hour Vital Signs Date Time Temp Pulse Resp B/P (MAP) Pulse Ox O2 Delivery O2 Flow Rate FiO2 03/30/20 09:00 Room Air 03/30/20 08:00 98.8 73 18 127/65 (85) 96 03/30/20 04:00 98.0 69 19 139/49 (79) 96 03/30/20 00:00 98.2 81 19 94/58 (70) 95 03/29/20 21:00 Room Air 03/29/20 20:00 98.9 73 19 110/49 (69) 96 03/29/20 16:00 97.6 81 20 109/50 (69) 97 03/29/20 12:00 97.1 75 19 100/40 (60) 97 Intake and Output 03/29/20 03/30/20 19:00 07:00 Intake Total 600 ml Output Total 3000 ml Balance -2400 ml Intake Oral 600 ml Hemodialysis UF 3000 ml # Voids 2 2 # Bowel Movements 2 2 Laboratory Tests 03/29/20 15:30: Random Vancomycin Level 13.3 03/30/20 05:40: White Blood Count 6.9, Red Blood Count 3.93L, Hemoglobin 9.7L, Hematocrit 31.4L , Mean Corpuscular Volume 80, Mean Corpuscular Hemoglobin 24.7L, Mean Corpuscular Hemoglobin Concent 30.9L, Red Cell Distribution Width 20.4H, Platelet Count 135L, Mean Platelet Volume 6.9, Neutrophils (%) (Auto) 56.7, Lymphocytes (%) (Auto) 25.9, Monocytes (%) (Auto) 10.9H, Eosinophils (%) (Auto) 5.6H, Basophils (%) (Auto) 0.9, Sodium Level 137, Potassium Level 4.6, Chloride Level 96L, Carbon Dioxide Level 27, Anion Gap 14, Blood Urea Nitrogen 65H, Creatinine 9.8H, Estimat Glomerular Filtration Rate 4.8, Glucose Level 126H, Calcium Level 10.0 Height (Feet): 5 Height (Inches): 7.00 Weight (Pounds): 212 General Appearance: no apparent distress EENT: normal ENT inspection Neck: supple Cardiovascular: normal rate Respiratory/Chest: decreased breath sounds Abdomen: normal bowel sounds, non tender, soft Extremities: non-tender Jamison Garcia MD March 30, 2020 11:03
--- NOTE | 2020-03-30 11:30 | NUR ---
NURSE NOTES: Dr. Reyna contacted regarding CLAY procedure. Per Dr. Reyna the procedure is too high risk and the patient is not a candidate. Dr. Vanegas made aware.
[2020-03-30 12:00] VITALS: BP 110/47
--- NOTE | 2020-03-30 12:05 | Cardiology Progress Note ---
Assessment/Plan Assessment/Plan 1. Respiratory failure. 2. History of obesity hypoventilation syndrome. 3. History of pulmonary hypertension previously. 4. Urinary tract infection. 5. covid 19 infection confimred 6. pneumonia. 7. History of bacteremia with Staph epi recently on 02/05/2020. 8. somnolence 9. Polymicrobial bacteremia repeat blood cx neg still echo transthoracic on 03/24/2020 was neg and no valve regurgitation afebrile normal wbc this pt is felt to be high risk for mayco and will require intubation for this procedure per my last discussion with dr hazel, i understand that mayco has been ordered however in light of all the above , i think we should have at least a reasonable chance that this test will be helpful if + or if - before putting her through all of this i think if the shunt can be a source then it should be evaluated first to see if that will explain all the bacteremia before putting her through this high risk mayco i did discuss the case with dr nolasco and dr hazel will need to have johanny shunt evaluated first then we will decide on the mayco per rn now has dirreha stool beign sent for c diff eatin gbetter sat are fine and bp is ok no fever all labs reviewed wbc normal still , sed rate was only 38 afew days ago no fever since 03/05 despite all the bacteremia !! covid neg from 03/11 + on 03/13, repeat neg 03/23 and 03/24 need wbc scan for avf eval per id Subjective Subjective Receive pt on the bed sleeping. Pt is alert and oriented x3-4 , no sob, no complain of pain, vitals are stable and no fever. pt is on room air. Objective Last 24 Hour Vital Signs Date Time Temp Pulse Resp B/P (MAP) Pulse Ox O2 Delivery O2 Flow Rate FiO2 03/30/20 09:00 Room Air 03/30/20 08:00 98.8 73 18 127/65 (85) 96 03/30/20 04:00 98.0 69 19 139/49 (79) 96 03/30/20 00:00 98.2 81 19 94/58 (70) 95 03/29/20 21:00 Room Air 03/29/20 20:00 98.9 73 19 110/49 (69) 96 03/29/20 16:00 97.6 81 20 109/50 (69) 97 General Appearance: obese, patient on isolation, isolation precautions Intake and Output 03/29/20 03/30/20 19:00 07:00 Intake Total 600 ml Output Total 3000 ml Balance -2400 ml Intake Oral 600 ml Hemodialysis UF 3000 ml # Voids 2 2 # Bowel Movements 2 2 Laboratory Tests Test 03/29/20 15:30 03/30/20 05:40 03/30/20 10:30 Random Vancomycin Level 13.3 ug/mL White Blood Count 6.9 K/UL (4.8-10.8) Red Blood Count 3.93 M/UL (4.20-5.40) L Hemoglobin 9.7 G/DL (12.0-16.0) L Hematocrit 31.4 % (37.0-47.0) L Mean Corpuscular Volume 80 FL (80-99) Mean Corpuscular Hemoglobin 24.7 PG (27.0-31.0) L Mean Corpuscular Hemoglobin Concent 30.9 G/DL (32.0-36.0) L Red Cell Distribution Width 20.4 % (11.6-14.8) H Platelet Count 135 K/UL (150-450) L Mean Platelet Volume 6.9 FL (6.5-10.1) Neutrophils (%) (Auto) 56.7 % (45.0-75.0) Lymphocytes (%) (Auto) 25.9 % (20.0-45.0) Monocytes (%) (Auto) 10.9 % (1.0-10.0) H Eosinophils (%) (Auto) 5.6 % (0.0-3.0) H Basophils (%) (Auto) 0.9 % (0.0-2.0) Sodium Level 137 MMOL/L (136-145) Potassium Level 4.6 MMOL/L (3.5-5.1) Chloride Level 96 MMOL/L (98-107) L Carbon Dioxide Level 27 MMOL/L (21-32) Anion Gap 14 mmol/L (5-15) Blood Urea Nitrogen 65 mg/dL (7-18) H Creatinine 9.8 MG/DL (0.55-1.30) H Estimat Glomerular Filtration Rate 4.8 mL/min (>60) Glucose Level 126 MG/DL (74-106) H Calcium Level 10.0 MG/DL (8.5-10.1) Stool Occult Blood Pending Microbiology Date/Time Source Procedure Growth Status 03/30/20 10:30 Stool Received Wilfredo Reyna MD March 30, 2020 12:05
--- NOTE | 2020-03-30 12:35 | General Progress Note ---
Assessment/Plan Problem List: (1) Obesity (BMI 30-39.9) ICD Codes: E66.9 - Obesity, unspecified SNOMED: 089749973, 144458529 (2) COVID-19 virus infection ICD Codes: U07.1 - COVID-19 SNOMED: 968333509 (3) Acute respiratory failure ICD Codes: J96.00 - Acute respiratory failure, unspecified whether with hypoxia or hypercapnia SNOMED: 96741818 (4) Blindness of both eyes ICD Codes: H54.0 - Blindness SNOMED: 302732026 (5) ESRD (end stage renal disease) on dialysis ICD Codes: N18.6 - End stage renal disease; Z99.2 - Dependence on renal dialysis SNOMED: 490161860 (6) Anemia ICD Codes: D64.9 - Anemia, unspecified SNOMED: 204297067 (7) Diabetes ICD Codes: E11.9 - Type 2 diabetes mellitus without complications SNOMED: 11120713 (8) AMS (altered mental status) ICD Codes: R41.82 - Altered mental status, unspecified SNOMED: 267488688 Status: unchanged Assessment/Plan: vent abx dialysis cbc bmp am ltach eval Subjective Constitutional: Reports: weakness Allergies: Coded Allergies: NO KNOWN ALLERGIES (Unverified Allergy, Unknown, 10/15/15) All Systems: reviewed and negative except above Subjective lethargic sleepy Objective Last 24 Hour Vital Signs Date Time Temp Pulse Resp B/P (MAP) Pulse Ox O2 Delivery O2 Flow Rate FiO2 03/30/20 09:00 Room Air 03/30/20 08:00 98.8 73 18 127/65 (85) 96 03/30/20 04:00 98.0 69 19 139/49 (79) 96 03/30/20 00:00 98.2 81 19 94/58 (70) 95 03/29/20 21:00 Room Air 03/29/20 20:00 98.9 73 19 110/49 (69) 96 03/29/20 16:00 97.6 81 20 109/50 (69) 97 Intake and Output 03/29/20 03/30/20 19:00 07:00 Intake Total 600 ml Output Total 3000 ml Balance -2400 ml Intake Oral 600 ml Hemodialysis UF 3000 ml # Voids 2 2 # Bowel Movements 2 2 Laboratory Tests 03/29/20 15:30: Random Vancomycin Level 13.3 03/30/20 05:40: White Blood Count 6.9, Red Blood Count 3.93L, Hemoglobin 9.7L, Hematocrit 31.4L , Mean Corpuscular Volume 80, Mean Corpuscular Hemoglobin 24.7L, Mean Corpuscular Hemoglobin Concent 30.9L, Red Cell Distribution Width 20.4H, Platelet Count 135L, Mean Platelet Volume 6.9, Neutrophils (%) (Auto) 56.7, Lymphocytes (%) (Auto) 25.9, Monocytes (%) (Auto) 10.9H, Eosinophils (%) (Auto) 5.6H, Basophils (%) (Auto) 0.9, Sodium Level 137, Potassium Level 4.6, Chloride Level 96L, Carbon Dioxide Level 27, Anion Gap 14, Blood Urea Nitrogen 65H, Creatinine 9.8H, Estimat Glomerular Filtration Rate 4.8, Glucose Level 126H, Calcium Level 10.0 03/30/20 10:30: Stool Occult Blood [Pending] Height (Feet): 5 Height (Inches): 7.00 Weight (Pounds): 212 General Appearance: lethargic EENT: normal ENT inspection Neck: normal alignment Cardiovascular: normal rate, regular rhythm Respiratory/Chest: no respiratory distress, no accessory muscle use Extremities: normal inspection Skin: normal pigmentation Roderick Henning DO March 30, 2020 12:35
--- NOTE | 2020-03-30 13:23 | Infectious Diseases Prog Note ---
Assessment/Plan Assessment/Plan The patient is a 64-year-old female with Proteus bacteremia Persistent/recurrent S.epi and VRE bactereima (despite 6 weeks of treatment)- highly suspicious for endovascular source (ie AVF infection, endocarditis) 03/09 Bcx 02/27 VRE, S. epi, 03/10 Bcx 02/27 P . mirabilis, probable amp-C; VRE, CONS; 03/11 Bcx 2/2 sets S.epi; 03/15 12/30 S. epi, 11/29 VRE; 03/16 Bcx 3/S.epi, 1/ VRE, 03/20 Bcx / S/epi; 03/24 Bcx Neg -03/15 CT abd/p: Cardiomegaly. Evidence of left ventricular muscular hypertrophy. Bilateral lower lobe and inferior lingular ill-defined parenchymal infiltrates, likely pneumonia but could indicate a component of pulmonary edema. Incidental findings as noted, including right renal cyst, evidence of prior hysterectomy, pacemaker, PICC, coronary stents and calcifications. Enlarged heterogeneous thyroid. No acute abdominal process cholelithiasis and/ or gallbladder sludge. Diastasis of the rectus abdominis tendon and small fat- containing ventral hernia, also demonstrated previously. Confirmed COVID-19. 02/19 SARS-CoV PCR positive. -03/22 COVID neg x1 -1st repeat neg 03/11 ; 2nd repeat is positive 03/13; has now 2 neg COVID (03/22 , 03/24) Pneumonia Mild leukocytosis, SP -03/09 u/a wbc 40-60, nit neg, leuk +3 Fever, recurrent, SP VDRF- sp self extubation 03/05, now on at RA - likely 2/2 COVID, less likely active bacterial superinfection since pt just completed empiric course of antibacterial therapy and sputum cx NG -03/07 CXR: Persistent vascular congestion and suspected interstitial edema.Cardiomegaly with pacer. - 03/01 CXR: Worsening bilateral hazy parenchymal infiltrates, versus edema - 02/20 CXR: Mild pulmonary vascular congestion with subtle bilateral haziness, not significantly changed.Possible tiny pleural effusions. Cardiomegaly. - Bcx ngtd - sp cx normal gui Less likely UTI u/a wbc tnct, nit +, leuk +3; ucx cindy(colonizer) Hx of positive blood culture CONS ,persistent; recurrent 02/04 BCx: CoNS 01/30 Bc: (1/2)CoNS and Citrobacter / , 02/01 Bc: CoNS - (outside facility, # of the +ve cultures are not clear) A 2D echo from outside facility did not show any evidence of vegetation as per Carido pt is high risk for CLAY: ( last admission ) Diabetes. CHF. ESRD. Hypertension. Obesity. 03/08 SP PICC Line placement; removed on 03/15 and new one placed PLAN: COntinue IV Vancomycin #6(abx d#18)- -will dose IV Vancomycin via AVF during HD days given pt lost IV access (had lost it multiple times already, hard stick) Continue Linezolid #13/14 for synergisms -monitor platelets 03/26 SP IM ertapenem #2 03/24 SP Cefepime #10, Daptomycin #13 03/15 SP Meropenem #4 03/12/20 SP IV Vancomycin #2 03/08 SP vancomycin, day # ? ( will Rx for probable SBE) 02/27 SP plaquenil+azithromycin #5 02/25 SP Ertapenem #8 02/24 DC amikacin #6 Ok to dc COVID isolation (COVID neg x2 03/22 and 03/24) CLAY-high riks per cardiology, will need to be intubated for procedure Will doWBC scan first to evaluate AVF as source- pt has no IV access for study, will try to again PICC line again and secure it so patient cannot pull it ( patient has already pull multiple PICC lines)- may also need a sitter. Monitor CBC. Monitor BMP. Monitor cultures f/u Bcx x2 PICC line JAE RN Subjective Allergies: Coded Allergies: NO KNOWN ALLERGIES (Unverified Allergy, Unknown, 10/15/15) Subjective afebrile repeat Bcx Neg WBC scan was not able to do because has no IV access Objective Vital Signs Last 24 Hour Vital Signs Date Time Temp Pulse Resp B/P (MAP) Pulse Ox O2 Delivery O2 Flow Rate FiO2 03/30/20 09:00 Room Air 03/30/20 08:00 98.8 73 18 127/65 (85) 96 03/30/20 04:00 98.0 69 19 139/49 (79) 96 03/30/20 00:00 98.2 81 19 94/58 (70) 95 03/29/20 21:00 Room Air 03/29/20 20:00 98.9 73 19 110/49 (69) 96 03/29/20 16:00 97.6 81 20 109/50 (69) 97 Height (Feet): 5 Height (Inches): 7.00 Weight (Pounds): 212 Objective General Appearance: lethargic EENT: normal ENT inspection Neck: normal alignment Cardiovascular: normal rate, regular rhythm Respiratory/Chest: no respiratory distress, no accessory muscle use Extremities: normal inspection Skin: normal pigmentation Microbiology Date/Time Source Procedure Growth Status 03/30/20 10:30 Stool Received Laboratory Tests Test 03/29/20 15:30 03/30/20 05:40 03/30/20 10:30 Random Vancomycin Level 13.3 ug/mL White Blood Count 6.9 K/UL (4.8-10.8) Red Blood Count 3.93 M/UL (4.20-5.40) L Hemoglobin 9.7 G/DL (12.0-16.0) L Hematocrit 31.4 % (37.0-47.0) L Mean Corpuscular Volume 80 FL (80-99) Mean Corpuscular Hemoglobin 24.7 PG (27.0-31.0) L Mean Corpuscular Hemoglobin Concent 30.9 G/DL (32.0-36.0) L Red Cell Distribution Width 20.4 % (11.6-14.8) H Platelet Count 135 K/UL (150-450) L Mean Platelet Volume 6.9 FL (6.5-10.1) Neutrophils (%) (Auto) 56.7 % (45.0-75.0) Lymphocytes (%) (Auto) 25.9 % (20.0-45.0) Monocytes (%) (Auto) 10.9 % (1.0-10.0) H Eosinophils (%) (Auto) 5.6 % (0.0-3.0) H Basophils (%) (Auto) 0.9 % (0.0-2.0) Sodium Level 137 MMOL/L (136-145) Potassium Level 4.6 MMOL/L (3.5-5.1) Chloride Level 96 MMOL/L (98-107) L Carbon Dioxide Level 27 MMOL/L (21-32) Anion Gap 14 mmol/L (5-15) Blood Urea Nitrogen 65 mg/dL (7-18) H Creatinine 9.8 MG/DL (0.55-1.30) H Estimat Glomerular Filtration Rate 4.8 mL/min (>60) Glucose Level 126 MG/DL (74-106) H Calcium Level 10.0 MG/DL (8.5-10.1) Stool Occult Blood Pending Current Medications Medications (Trade) Dose Ordered Sig/Josi Route PRN Reason Start Time Stop Time Status Last Admin Dose Admin Acetaminophen (Tylenol) 650 mg Q4H PRN GT fever 03/10/20 23:45 04/07/20 23:39 Albuterol/ Ipratropium (Combivent Respimat) 1 puff Q4H PRN INH Shortness of Breath 03/10/20 23:45 04/07/20 23:40 Atorvastatin Calcium (Lipitor) 10 mg BEDTIME NG 03/11/20 21:00 05/25/20 20:59 03/29/20 20:30 Barium Sulfate (Varibar Honey) 250 ml NOW PRN MC RAD 03/29/20 14:30 04/01/20 14:24 Barium Sulfate (Varibar [place]) 240 ml NOW PRN MC RAD 03/29/20 14:30 04/01/20 14:24 Barium Sulfate (Varibar Pudding) 230 ml NOW PRN MC RAD 03/29/20 14:30 04/01/20 14:24 Chlorhexidine Gluconate (Jenny-Hex 2%) 1 applic DAILY@1999 TOPIC 03/23/20 20:00 06/21/20 19:59 Epoetin Jose De Jesus (Epoetin Jose De Jesus(ESRD on dialysis)) 6,000 unit SUN-SUN-SUN SUBQ 03/31/20 21:00 06/29/20 20:59 Heparin Sodium (Porcine) (Heparin 5000 units/ml) 5,000 units EVERY 12 HOURS SUBQ 03/11/20 09:00 04/10/20 08:59 03/28/20 22:30 Insulin Aspart (NovoLOG) Q6HR SUBQ 03/11/20 00:00 05/20/20 12:29 03/29/20 23:53 Linezolid (Zyvox) 600 mg EVERY 12 HOURS ORAL 03/25/20 21:00 04/03/20 23:59 03/30/20 08:10 Memantine (Namenda) 5 mg DAILY ORAL 03/22/20 09:00 04/21/20 08:59 03/30/20 08:10 Pantoprazole (Protonix) 40 mg EVERY 12 HOURS ORAL 03/17/20 21:00 04/16/20 20:59 03/30/20 08:10 Pyridoxine HCl (Vitamin B6) 50 mg DAILY ORAL 03/18/20 09:00 04/17/20 08:59 03/30/20 08:10 Sevelamer Carbonate (Renvela) 1,600 mg TID NG 03/18/20 13:00 05/25/20 11:59 03/30/20 12:50 Thiamine HCl (Vitamin B1) 100 mg DAILY ORAL 03/18/20 09:00 04/17/20 08:59 03/30/20 08:10 Vancomycin HCl (Vanco rx to dose) 1 ea DAILY PRN MISC . 03/25/20 14:45 04/24/20 14:44 Vancomycin HCl 1 gm/Sodium Chloride 275 ml @ 183.708 mls/hr TuThSa PRN IVPB GIVE WITH HD ON HD DAYS 03/27/20 09:00 04/03/20 23:59 Susi Vanegas M.D. March 30, 2020 13:23
--- NOTE | 2020-03-30 13:59 | Nephrology Progress Note ---
Assessment/Plan Problem List: (1) Acute respiratory failure (2) ESRD (end stage renal disease) on dialysis (3) UTI (urinary tract infection) (4) Patient is [employer] (5) Pacemaker (6) Diabetes (7) Obesity (BMI 30-39.9) Assessment ARDS (adult respiratory distress syndrome) Fever Sepsis UTI (urinary tract infection) Respiratory failure, intubated on ventilator Thrombocytopenia Lymphopenia End stage renal disease on dialysis. Has a right upper arm dialysis fistula as Acces . Getting dialysis Sunday. morbid obesity Anemia / Jehova's witness CAD previous stent HTN- hypertensive urgency upon arrival to [facility]. s/p AVG DM 2 bilateral eye blindness h/o CHF Pacemaker Plan Last dialysis March 29. Next dialysis March 31 Antibiotics per IV Today's labs still not drawn most likely the patient refused Previously on Zyvox and cefepime and daptomycin There is an issue with patient's IV line. She has pulled out previous PICC line's. Discussed with RN Previously Patient extubated March 04, and remains extubated, now in MedSurg floor Patient positive for Covid 19 Per ID and pulmonary, Last dialyzed March 23 next dialysis March 25 EPO, thiamin and b6 Phos binders NGT feeding per consultants Remains full code at this time Subjective ROS Limited/Unobtainable: No Constitutional: Reports: malaise, weakness Objective Objective Last 24 Hour Vital Signs Date Time Temp Pulse Resp B/P (MAP) Pulse Ox O2 Delivery O2 Flow Rate FiO2 03/30/20 09:00 Room Air 03/30/20 08:00 98.8 73 18 127/65 (85) 96 03/30/20 04:00 98.0 69 19 139/49 (79) 96 03/30/20 00:00 98.2 81 19 94/58 (70) 95 03/29/20 21:00 Room Air 03/29/20 20:00 98.9 73 19 110/49 (69) 96 03/29/20 16:00 97.6 81 20 109/50 (69) 97 Intake and Output 03/29/20 03/30/20 19:00 07:00 Intake Total 600 ml Output Total 3000 ml Balance -2400 ml Intake Oral 600 ml Hemodialysis UF 3000 ml # Voids 2 2 # Bowel Movements 2 2 Laboratory Tests 03/29/20 15:30: Random Vancomycin Level 13.3 03/30/20 05:40: White Blood Count 6.9, Red Blood Count 3.93L, Hemoglobin 9.7L, Hematocrit 31.4L , Mean Corpuscular Volume 80, Mean Corpuscular Hemoglobin 24.7L, Mean Corpuscular Hemoglobin Concent 30.9L, Red Cell Distribution Width 20.4H, Platelet Count 135L, Mean Platelet Volume 6.9, Neutrophils (%) (Auto) 56.7, Lymphocytes (%) (Auto) 25.9, Monocytes (%) (Auto) 10.9H, Eosinophils (%) (Auto) 5.6H, Basophils (%) (Auto) 0.9, Sodium Level 137, Potassium Level 4.6, Chloride Level 96L, Carbon Dioxide Level 27, Anion Gap 14, Blood Urea Nitrogen 65H, Creatinine 9.8H, Estimat Glomerular Filtration Rate 4.8, Glucose Level 126H, Calcium Level 10.0 03/30/20 10:30: Stool Occult Blood [Pending] Height (Feet): 5 Height (Inches): 7.00 Weight (Pounds): 212 General Appearance: no apparent distress Cardiovascular: normal rate Respiratory/Chest: decreased breath sounds Abdomen: other - Obese Objective No change Bryan Hunter MD March 30, 2020 13:59
[2020-03-30 16:00] VITALS: BP 121/57
--- NOTE | 2020-03-30 16:15 | Surgery Progress Note ---
Surgery Progress Note Subjective Additional Comments No acute events. Discussed case with infectious disease. Recommending white blood cell nuclear medicine study. Patient currently without access for infusion of nuc med diagnostic testing. Plan for PICC line placement over central line given.emergency. Objective Last 24 Hour Vital Signs Date Time Temp Pulse Resp B/P (MAP) Pulse Ox O2 Delivery O2 Flow Rate FiO2 03/30/20 12:00 98.1 79 17 110/47 (68) 98 03/30/20 09:00 Room Air 03/30/20 08:00 98.8 73 18 127/65 (85) 96 03/30/20 04:00 98.0 69 19 139/49 (79) 96 03/30/20 00:00 98.2 81 19 94/58 (70) 95 03/29/20 21:00 Room Air 03/29/20 20:00 98.9 73 19 110/49 (69) 96 I&O Intake and Output 03/29/20 03/30/20 19:00 07:00 Intake Total 600 ml Output Total 3000 ml Balance -2400 ml Intake Oral 600 ml Hemodialysis UF 3000 ml # Voids 2 2 # Bowel Movements 2 2 Dressing: dry Wound: clean Cardiovascular: RSR Respiratory: clear Abdomen: soft, non-tender, present bowel sounds Extremities: no tenderness, no cyanosis, other Laboratory Tests Test 03/30/20 05:40 03/30/20 10:30 White Blood Count 6.9 K/UL (4.8-10.8) Red Blood Count 3.93 M/UL (4.20-5.40) L Hemoglobin 9.7 G/DL (12.0-16.0) L Hematocrit 31.4 % (37.0-47.0) L Mean Corpuscular Volume 80 FL (80-99) Mean Corpuscular Hemoglobin 24.7 PG (27.0-31.0) L Mean Corpuscular Hemoglobin Concent 30.9 G/DL (32.0-36.0) L Red Cell Distribution Width 20.4 % (11.6-14.8) H Platelet Count 135 K/UL (150-450) L Mean Platelet Volume 6.9 FL (6.5-10.1) Neutrophils (%) (Auto) 56.7 % (45.0-75.0) Lymphocytes (%) (Auto) 25.9 % (20.0-45.0) Monocytes (%) (Auto) 10.9 % (1.0-10.0) H Eosinophils (%) (Auto) 5.6 % (0.0-3.0) H Basophils (%) (Auto) 0.9 % (0.0-2.0) Sodium Level 137 MMOL/L (136-145) Potassium Level 4.6 MMOL/L (3.5-5.1) Chloride Level 96 MMOL/L (98-107) L Carbon Dioxide Level 27 MMOL/L (21-32) Anion Gap 14 mmol/L (5-15) Blood Urea Nitrogen 65 mg/dL (7-18) H Creatinine 9.8 MG/DL (0.55-1.30) H Estimat Glomerular Filtration Rate 4.8 mL/min (>60) Glucose Level 126 MG/DL (74-106) H Calcium Level 10.0 MG/DL (8.5-10.1) Stool Occult Blood Pending Plan Problems: (1) COVID-19 virus infection Assessment & Plan: positive on admission now negative (2) Bleeding from dialysis shunt Assessment & Plan: right upper arm fistula with thrill and proximal pulse dressings saturated but no active bleeding okay to use (3) Bacteremia Assessment & Plan: 64-year-old female with bacteremia currently admitted for some time [facility] has been on IV antibiotics per infectious disease and has had multiple peripheral lines in the past PICC line's which she is removed. She recently had a PICC line placed in the left upper arm approximately 03/19 which she now removed when she was agitated. She has been removing these lines for some time now and is not amenable to restraints or cognitive resuscitation. She currently is without IV access. Given her history and current condition and agitation appreciate psych input and medications. Unfortunately I do not believe she is safe for central line placement for 2 reasons 1 day very difficult to place central line in agitated state as she is not amenable to one being placed to she will likely remove this line immediately. I spoke with nephrology and ID and we have come up with a plan to keep patient on oral medications and for antibiotics we will switch to vancomycin which will get given with her dialysis which she is and has been tolerating. Will follow along if any changes will plan for insertion will attempt peripheral first before central. Okay to be without line for now. Thank you allowing me to participate patient's care Plan for white blood cell study PICC line placement will monitor Hold central line if emergency only DAILY ESTIMATED NEEDS: Needs based on obesity, pulmonary, HD, wound 78kg abw 20-25 kcals/kg [id number] total kcals 1.25-1.8 g protein/kg 98-140 g total protein per MD, pt on HD NUTRITION DIAGNOSIS: * Swallowing difficulty R/T respiratory status as evidenced by pt orally intubated, now s/p extubation, s/p pulling out NGT, now on pureed moist texture w/ NTL. * Altered nutrition related lab values R/T ESRD as evidenced by elev creat (9.0), elev BNP (>[id number]), elev phos (6.0-> wnl->5.5-> wnl). CURRENT DIET:Renal, pureed moist w/ NTL + Nepro BID PO DIET RECOMMENDATIONS: RENAL + CCHO MED/ texture per [employer] ADDITIONAL RECOMMENDATIONS: 1) Calibrated bedscale wt for accurate CBW- daily wts for ESRD dx wts in the 210's vs 240's a few week ago 2) Monitor BGs closely, for hypoglycemia h/o frequent hypoglycemia during prev admissions 3) Monitor PO intake closely: appears to be improved at this time -> monitor need to decrease Nepro HPN 4) Add Nephrovite x 1 for skin integrity Nestor Dyson March 30, 2020 16:15
--- NOTE | 2020-03-30 17:00 | Progress Note ---
DATE: 03/30/2020 SUBJECTIVE: This is a 64-year-old female patient with respiratory failure. She has got some confusion, some altered mental status, significant decline in cognition below her baseline that is why her attending physician has requested daily psychiatric consultation. She has got some mood lability, confusion, disorganized thought process, as well as respiratory failure. MENTAL STATUS EXAMINATION: This is a 64-year-old female. Appearance is disheveled. Attitude, irritable and agitated. Affect, guarded and restricted. Intellect poor. Mood, depressed and anxious. Motor activity, psychomotor agitation. Insight and judgment poor. DIAGNOSIS: Major depressive disorder, mild, recurrent with psychotic features, rule out dementia with psychosis. PLAN: Namenda 5 mg daily to prevent any further decline in cognition. She will continued to be followed by Psychiatry throughout hospital course. She was encouraged to interact appropriately with staff and other patient. A 20-minutes of insight-oriented psychotherapy to help her understand psychiatric and physical condition so she that she have better behavior and better impulse control in the unit. Chart reviewed and discussed with staff. Seen and assessed at bedside. Iker Lawrence M.D. DR: Lorenzo JOB#: [id number] CC:
--- NOTE | 2020-03-30 19:20 | NUR ---
HAND-OFF: Report given to Verito SLOAN.
[2020-03-30] MEDS: Dyna-Hex 2% Top Sol 2oz TOPIC SCH (20:00)
--- NOTE | 2020-03-30 20:00 | NUR ---
NURSE NOTES: Received patient comfortably resting in bed, no SOB noted, bed in lowest position, bed alarm on.
[2020-03-30 20:40] VITALS: BP 120/65
[2020-03-31] MEDS: NovoLOG Insulin Flexpen SUBQ SCH ×4 (00:11→18:05)
[2020-03-31 00:18] VITALS: BP 105/65
[2020-03-31 04:13] VITALS: BP 98/56
--- NOTE | 2020-03-31 06:33 | NUR ---
NURSE NOTES: Called Juan Frias, awaiting call back for consent for PICC line
--- NOTE | 2020-03-31 06:58 | NUR ---
HAND-OFF: Report given to Geneva Zapata LVN.
[2020-03-31 08:00] VITALS: BP 104/42
[2020-03-31] MEDS: Thiamine 100mg tab ORAL SCH (08:25)
[2020-03-31] MEDS: Renvela 800mg Pkt NG SCH ×3 (08:25→17:29)
[2020-03-31] MEDS: Memantine 5 MG TAB ORAL SCH (08:25)
[2020-03-31] MEDS: Heparin 5000 units/ml inj SUBQ SCH ×2 (08:26→20:50)
[2020-03-31] MEDS: Pyridoxine 50mg tab ORAL SCH (08:26)
--- NOTE | 2020-03-31 08:35 | NUR ---
RD ASSESSMENT & RECOMMENDATIONS SEE CARE ACTIVITY FOR COMPLETE ASSESSMENT DAILY ESTIMATED NEEDS: Needs based on obesity, pulmonary, HD, wound 73.4kg abw 20-25 kcals/kg 5628-3526 total kcals 1.25-1.8 g protein/kg 92-132 g total protein per MD, pt on HD NUTRITION DIAGNOSIS: * Swallowing difficulty R/T respiratory status as evidenced by pt orally intubated, now s/p extubation, s/p pulling out NGT, now on pureed moist texture w/ NTL. * Altered nutrition related lab values R/T ESRD as evidenced by elev creat (9.0), elev BNP (>81272->38247), elev phos (6.0-> wnl->5.5-> wnl). CURRENT DIET:Renal, pureed moist w/ NTL + Nepro BID PO DIET RECOMMENDATIONS: RENAL + CCHO MED/ texture per FINANCIAL SALES REPRESENTATIVE ADDITIONAL RECOMMENDATIONS: 1) Obtain an updated calibrated bed scale wt, pt w/ extended admission. Weights in the 210's vs 240's a few week ago 2) Monitor BGs closely, for hypoglycemia h/o frequent hypoglycemia during prev admissions 3) Monitor PO intake closely: appears to be improved at this time -> monitor need to decrease Nepro HPN 4) Add Nephrovite x 1 for skin integrity
--- NOTE | 2020-03-31 08:59 | General Progress Note ---
Assessment/Plan Status: unchanged Assessment/Plan: 1. Diabetes. 2. End-stage renal disease, on hemodialysis. 3. Chronic anemia. 4. Obesity. 5. Gastritis. 6. Kidney stones. 7. Abdominal hernia. 8. Hiatal hernia. 9. Cardiomegaly. 10. Hypercholesterolemia. 11. Hypertension. 12. Bilateral eye blindness. 13. Coronary artery disease and cardiac stent placement. 14. History of EtOH and cocaine abuse in the past. 15. Dysphagia abd CT reviewed COVID positive swallow eval appreciated on diet fu cardiology and Id recs HD per nephrology fu labs recent labs and notes reviewed hold GI procedures for now check stool ob Subjective ROS Limited/Unobtainable: No Allergies: Coded Allergies: NO KNOWN ALLERGIES (Unverified Allergy, Unknown, 10/15/15) Objective Last 24 Hour Vital Signs Date Time Temp Pulse Resp B/P (MAP) Pulse Ox O2 Delivery O2 Flow Rate FiO2 03/31/20 04:13 97.8 77 22 98/56 (70) 96 03/31/20 00:18 97.4 94 18 105/65 (78) 96 03/30/20 20:40 97.1 85 18 120/65 (83) 100 03/30/20 20:15 Room Air 03/30/20 16:00 97.6 81 18 121/57 (78) 97 03/30/20 12:00 98.1 79 17 110/47 (68) 98 03/30/20 09:00 Room Air Intake and Output 03/30/20 03/31/20 19:00 07:00 Intake Total 600 ml 360 ml Balance 600 ml 360 ml Other 600 ml 360 ml # Bowel Movements 3 Laboratory Tests 03/30/20 10:30: Stool Occult Blood [Pending] Height (Feet): 5 Height (Inches): 7.00 Weight (Pounds): 210 General Appearance: no apparent distress EENT: normal ENT inspection Neck: supple Cardiovascular: normal rate Respiratory/Chest: decreased breath sounds Abdomen: normal bowel sounds, non tender, soft Extremities: non-tender Jamison Garcia MD March 31, 2020 08:59
[2020-03-31] MEDS ORDERED: Vancomycin 1 GM in NS 275 ML IVPB PRN (09:00)
--- NOTE | 2020-03-31 09:02 | General Progress Note ---
Assessment/Plan Problem List: (1) Obesity (BMI 30-39.9) ICD Codes: E66.9 - Obesity, unspecified SNOMED: 414912423, 828229318 (2) COVID-19 virus infection ICD Codes: U07.1 - COVID-19 SNOMED: 584469582 (3) Acute respiratory failure ICD Codes: J96.00 - Acute respiratory failure, unspecified whether with hypoxia or hypercapnia SNOMED: 24041328 (4) Blindness of both eyes ICD Codes: H54.0 - Blindness SNOMED: 169328772 (5) ESRD (end stage renal disease) on dialysis ICD Codes: N18.6 - End stage renal disease; Z99.2 - Dependence on renal dialysis SNOMED: 699931734 (6) Anemia ICD Codes: D64.9 - Anemia, unspecified SNOMED: 077502369 (7) Diabetes ICD Codes: E11.9 - Type 2 diabetes mellitus without complications SNOMED: 17919188 (8) AMS (altered mental status) ICD Codes: R41.82 - Altered mental status, unspecified SNOMED: 655382786 Status: unchanged Assessment/Plan: vent abx dialysis cbc bmp am ltach eval Subjective Constitutional: Reports: weakness Allergies: Coded Allergies: NO KNOWN ALLERGIES (Unverified Allergy, Unknown, 10/15/15) All Systems: reviewed and negative except above Subjective lethargic sleepy Objective Last 24 Hour Vital Signs Date Time Temp Pulse Resp B/P (MAP) Pulse Ox O2 Delivery O2 Flow Rate FiO2 03/31/20 04:13 97.8 77 22 98/56 (70) 96 03/31/20 00:18 97.4 94 18 105/65 (78) 96 03/30/20 20:40 97.1 85 18 120/65 (83) 100 03/30/20 20:15 Room Air 03/30/20 16:00 97.6 81 18 121/57 (78) 97 03/30/20 12:00 98.1 79 17 110/47 (68) 98 Intake and Output 03/30/20 03/31/20 19:00 07:00 Intake Total 600 ml 360 ml Balance 600 ml 360 ml Other 600 ml 360 ml # Bowel Movements 3 Laboratory Tests 03/30/20 10:30: Stool Occult Blood [Pending] Height (Feet): 5 Height (Inches): 7.00 Weight (Pounds): 210 General Appearance: lethargic EENT: normal ENT inspection Neck: normal alignment Cardiovascular: normal rate, regular rhythm Respiratory/Chest: no respiratory distress, no accessory muscle use Extremities: normal inspection Skin: normal pigmentation Roderick Henning DO March 31, 2020 09:02
--- NOTE | 2020-03-31 09:07 | NUR ---
CHARGE NURSE NOTE: Pt is having HD, bp 85/33 HD nurse Lit aware. Spoke with . Rechecked pt again BP 104/42. notified.
--- NOTE | 2020-03-31 11:02 | Pulmonology Progress Note ---
Assessment/Plan Problems: (1) Sepsis (2) Bacteremia (3) COVID-19 virus infection (4) Accelerated hypertension (5) At high risk for aspiration (6) ESRD (end stage renal disease) on dialysis (7) Diabetes (8) Patient is [employer] (9) Morbid obesity Assessment/Plan Has diarrhea, Cdiff negative D/w dr Reyna about the CLAY, and how useful it would be. He was going to discuss with the ID field service consultant. Covid negative X 2 CLAY and WBC scan pending on Vancomycin and Linezolid on isolation afebrile in the last few days f/u cultures respiratory treatment Subjective ROS Limited/Unobtainable: No Interval Events: comfortable, resting Allergies: Coded Allergies: NO KNOWN ALLERGIES (Unverified Allergy, Unknown, 10/15/15) All Systems: reviewed and negative except above Objective Last 24 Hour Vital Signs Date Time Temp Pulse Resp B/P (MAP) Pulse Ox O2 Delivery O2 Flow Rate FiO2 03/31/20 08:00 96.4 70 18 104/42 (62) 97 03/31/20 04:13 97.8 77 22 98/56 (70) 96 03/31/20 00:18 97.4 94 18 105/65 (78) 96 03/30/20 20:40 97.1 85 18 120/65 (83) 100 03/30/20 20:15 Room Air 03/30/20 16:00 97.6 81 18 121/57 (78) 97 03/30/20 12:00 98.1 79 17 110/47 (68) 98 Intake and Output 03/30/20 03/31/20 19:00 07:00 Intake Total 600 ml 360 ml Balance 600 ml 360 ml Other 600 ml 360 ml # Bowel Movements 3 General Appearance: cachetic HEENT: normocephalic, atraumatic Respiratory/Chest: chest wall non-tender, lungs clear Breasts: no masses Cardiovascular: normal peripheral pulses, normal rate, other - LUE PICC intact Abdomen: normal bowel sounds, soft, non tender Genitourinary: normal external genitalia Extremities: no cyanosis, other - trace edema BLE, RUE AV shunt + bruit/thrill Skin: no lesions Neurologic/Psychiatric: airport utility worker II-XII grossly normal Lymphatic: no neck adenopathy Microbiology Date/Time Source Procedure Growth Status 03/30/20 10:30 Stool Clostridium difficile Toxin Assay - Final Complete 03/30/20 10:30 Stool Received Current Medications Medications (Trade) Dose Ordered Sig/Josi Route PRN Reason Start Time Stop Time Status Last Admin Dose Admin Acetaminophen (Tylenol) 650 mg Q4H PRN GT fever 03/10/20 23:45 04/07/20 23:39 Albuterol/ Ipratropium (Combivent Respimat) 1 puff Q4H PRN INH Shortness of Breath 03/10/20 23:45 04/07/20 23:40 Atorvastatin Calcium (Lipitor) 10 mg BEDTIME NG 03/11/20 21:00 05/25/20 20:59 03/30/20 20:57 Barium Sulfate (Varibar Honey) 250 ml NOW PRN MC RAD 03/29/20 14:30 04/01/20 14:24 Barium Sulfate (Varibar [place]) 240 ml NOW PRN MC RAD 03/29/20 14:30 04/01/20 14:24 Barium Sulfate (Varibar Pudding) 230 ml NOW PRN MC RAD 03/29/20 14:30 04/01/20 14:24 Chlorhexidine Gluconate (Jenny-Hex 2%) 1 applic DAILY@2000 TOPIC 03/30/20 20:00 06/28/20 19:59 Epoetin Jose De Jesus (Epoetin Jose De Jesus(ESRD on dialysis)) 6,000 unit SUN-SUN-SUN SUBQ 03/31/20 21:00 06/29/20 20:59 Heparin Sodium (Porcine) (Heparin 5000 units/ml) 5,000 units EVERY 12 HOURS SUBQ 03/11/20 09:00 04/10/20 08:59 03/28/20 22:30 Insulin Aspart (NovoLOG) Q6HR SUBQ 03/11/20 00:00 05/20/20 12:29 03/31/20 00:11 Linezolid (Zyvox) 600 mg EVERY 12 HOURS ORAL 03/25/20 21:00 04/03/20 23:59 03/30/20 20:56 Memantine (Namenda) 5 mg DAILY ORAL 03/22/20 09:00 04/21/20 08:59 03/30/20 08:10 Pantoprazole (Protonix) 40 mg EVERY 12 HOURS ORAL 03/17/20 21:00 04/16/20 20:59 03/30/20 20:56 Pyridoxine HCl (Vitamin B6) 50 mg DAILY ORAL 03/18/20 09:00 04/17/20 08:59 03/30/20 08:10 Sevelamer Carbonate (Renvela) 1,600 mg TID NG 03/18/20 13:00 05/25/20 11:59 03/30/20 17:58 Thiamine HCl (Vitamin B1) 100 mg DAILY ORAL 03/18/20 09:00 04/17/20 08:59 03/30/20 08:10 Vancomycin HCl (Vanco rx to dose) 1 ea DAILY PRN MISC . 03/25/20 14:45 04/24/20 14:44 Vancomycin HCl 1 gm/Sodium Chloride 275 ml @ 183.708 mls/hr 3XW PRN IVPB GIVE WITH HD ON HD DAYS 03/31/20 09:00 04/05/20 08:59 Meghana Murillo MD March 31, 2020 11:02
--- NOTE | 2020-03-31 11:45 | NUR ---
NURSE NOTES: HD completed. will cont to monitor.
[2020-03-31 12:00] VITALS: BP 97/74
--- NOTE | 2020-03-31 12:05 | NUR ---
CASE MANAGEMENT:REVIEW SI;AC RESP FAILURE. ESRD ON HD. COVID-19 NEGATIVE X2 (03/22, 03/24) 96.4 94 22 98/56 96% ON RA IS;VANCOMYCIN IV 3XW ON HD DAYS ZYVOX PO Q12 HRS PROTONIX PO BID NAMENDA PO QD VIT B6 PO QD VIT B1 PO QD MED SURG STATUS DCP;FROM [facility] PLAN;CLAY WBC SCAN
--- NOTE | 2020-03-31 12:15 | NUR ---
NURSE NOTES: therapy tech prepping for NM. unable to administer insulin. will cont to monitor.
--- NOTE | 2020-03-31 12:56 | Nephrology Progress Note ---
Assessment/Plan Problem List: (1) Acute respiratory failure (2) ESRD (end stage renal disease) on dialysis (3) UTI (urinary tract infection) (4) Patient is Ep[employer]op[employer] (5) Pacemaker (6) Diabetes (7) Obesity (BMI 30-39.9) Assessment ARDS (adult respiratory distress syndrome) Fever Sepsis UTI (urinary tract infection) Respiratory failure, intubated on ventilator Thrombocytopenia Lymphopenia End stage renal disease on dialysis. Has a right upper arm dialysis fistula as Acces . Getting dialysis Sunday. morbid obesity Anemia / Jehova's witness CAD previous stent HTN- hypertensive urgency upon arrival to [facility]. s/p AVG DM 2 bilateral eye blindness h/o CHF Pacemaker Plan Last dialysis March 29. Next dialysis March 31 done this morning, patient was fluid challenged during dialysis for hypotension Antibiotics per IV Today's labs still not drawn most likely the patient refused Previously on Zyvox and cefepime and daptomycin There is an issue with patient's IV line. She has pulled out previous PICC line's. Discussed with RN Previously Patient extubated March 04, and remains extubated, now in MedSurg floor Patient positive for Covid 19 Per ID and pulmonary, Last dialyzed March 23 next dialysis March 25 EPO, thiamin and b6 Phos binders NGT feeding per consultants Remains full code at this time Subjective ROS Limited/Unobtainable: No Constitutional: Reports: malaise, weakness Objective Objective Last 24 Hour Vital Signs Date Time Temp Pulse Resp B/P (MAP) Pulse Ox O2 Delivery O2 Flow Rate FiO2 03/31/20 12:00 96.0 86 18 97/74 (82) 100 03/31/20 09:00 Room Air 03/31/20 08:00 96.4 70 18 104/42 (62) 97 03/31/20 04:13 97.8 77 22 98/56 (70) 96 03/31/20 00:18 97.4 94 18 105/65 (78) 96 03/30/20 20:40 97.1 85 18 120/65 (83) 100 03/30/20 20:15 Room Air 03/30/20 16:00 97.6 81 18 121/57 (78) 97 Intake and Output 03/30/20 03/31/20 19:00 07:00 Intake Total 600 ml 360 ml Balance 600 ml 360 ml Other 600 ml 360 ml # Bowel Movements 3 No labs drawn today Height (Feet): 5 Height (Inches): 7.00 Weight (Pounds): 210 General Appearance: no apparent distress, lethargic Cardiovascular: normal rate Respiratory/Chest: decreased breath sounds Abdomen: distended Objective No change Bryan Hunter MD March 31, 2020 12:56
--- NOTE | 2020-03-31 13:00 | NUR ---
NM Indium WBC Scan: Blood drawn for Indium-111 WBC labeling. To be sent to [facility] for labeling. Return time for labeled WBCs is 3 to 6 hours. Addendum: 03/31/20 at 1648 by COURTNEY DASILVA Indium-111 labeled WBCs injected into patient. Scanning will be performed tomorrow per protocol.
--- NOTE | 2020-03-31 13:11 | NUR ---
TECHNICAL DESIGNER NOTE ALL CURRENT CLINICALS HAVE BEEN FAXED TO [facility] P: [phone] F: [phone] S/W NIMO, CONFIRMED PATIENTS CHAIR TIME ON @ 1215 PM THIS CM WILL INFORM [facility] WHEN PATIENT IS DISCHARGED TO CONFIRM RETURN FOR HD
--- NOTE | 2020-03-31 13:46 | Cardiology Progress Note ---
Assessment/Plan Assessment/Plan The patient is seen and examined, full consult note is dictated. Objective Last 24 Hour Vital Signs Date Time Temp Pulse Resp B/P (MAP) Pulse Ox O2 Delivery O2 Flow Rate FiO2 03/31/20 12:00 96.0 86 18 97/74 (82) 100 03/31/20 09:00 Room Air 03/31/20 08:00 96.4 70 18 104/42 (62) 97 03/31/20 04:13 97.8 77 22 98/56 (70) 96 03/31/20 00:18 97.4 94 18 105/65 (78) 96 03/30/20 20:40 97.1 85 18 120/65 (83) 100 03/30/20 20:15 Room Air 03/30/20 16:00 97.6 81 18 121/57 (78) 97 Intake and Output 03/30/20 03/31/20 19:00 07:00 Intake Total 600 ml 360 ml Balance 600 ml 360 ml Other 600 ml 360 ml # Bowel Movements 3 Microbiology Date/Time Source Procedure Growth Status 03/30/20 10:30 Stool Clostridium difficile Toxin Assay - Final Complete 03/30/20 10:30 Stool Received Shalom Costa MD March 31, 2020 13:46
--- NOTE | 2020-03-31 15:05 | Surgery Progress Note ---
Surgery Progress Note Subjective Additional Comments pending picc line no acute events otherwise Objective Last 24 Hour Vital Signs Date Time Temp Pulse Resp B/P (MAP) Pulse Ox O2 Delivery O2 Flow Rate FiO2 03/31/20 12:00 96.0 86 18 97/74 (82) 100 03/31/20 09:00 Room Air 03/31/20 08:00 96.4 70 18 104/42 (62) 97 03/31/20 04:13 97.8 77 22 98/56 (70) 96 03/31/20 00:18 97.4 94 18 105/65 (78) 96 03/30/20 20:40 97.1 85 18 120/65 (83) 100 03/30/20 20:15 Room Air 03/30/20 16:00 97.6 81 18 121/57 (78) 97 I&O Intake and Output 03/30/20 03/31/20 19:00 07:00 Intake Total 600 ml 360 ml Balance 600 ml 360 ml Other 600 ml 360 ml # Bowel Movements 3 Cardiovascular: RSR Respiratory: clear Abdomen: soft, non-tender, present bowel sounds Extremities: no edema, no tenderness, no cyanosis Plan Problems: (1) COVID-19 virus infection Assessment & Plan: positive on admission now negative (2) Bleeding from dialysis shunt Assessment & Plan: right upper arm fistula with thrill and proximal pulse dressings saturated but no active bleeding okay to use (3) Bacteremia Assessment & Plan: 64-year-old female with bacteremia currently admitted for some time [facility] has been on IV antibiotics per infectious disease and has had multiple peripheral lines in the past PICC line's which she is removed. She recently had a PICC line placed in the left upper arm approximately 03/19 which she now removed when she was agitated. She has been removing these lines for some time now and is not amenable to restraints or cognitive resuscitation. She currently is without IV access. Given her history and current condition and agitation appreciate psych input and medications. Unfortunately I do not believe she is safe for central line placement for 2 reasons 1 day very difficult to place central line in agitated state as she is not amenable to one being placed to she will likely remove this line immediately. I spoke with nephrology and ID and we have come up with a plan to keep patient on oral medications and for antibiotics we will switch to vancomycin which will get given with her dialysis which she is and has been tolerating. Will follow along if any changes will plan for insertion will attempt peripheral first before central. Okay to be without line for now. Thank you allowing me to participate patient's care Plan for white blood cell study PICC line placement will monitor Hold central line if emergency only DAILY ESTIMATED NEEDS: Needs based on obesity, pulmonary, HD, wound 78kg abw 20-25 kcals/kg 5041-0922 total kcals 1.25-1.8 g protein/kg 98-140 g total protein per MD, pt on HD NUTRITION DIAGNOSIS: * Swallowing difficulty R/T respiratory status as evidenced by pt orally intubated, now s/p extubation, s/p pulling out NGT, now on pureed moist texture w/ NTL. * Altered nutrition related lab values R/T ESRD as evidenced by elev creat (9.0), elev BNP (>69182->79509), elev phos (6.0-> wnl->5.5-> wnl). CURRENT DIET:Renal, pureed moist w/ NTL + Nepro BID PO DIET RECOMMENDATIONS: RENAL + CCHO MED/ texture per ENTRY LEVEL RECEPTIONIST ADDITIONAL RECOMMENDATIONS: 1) Calibrated bedscale wt for accurate CBW- daily wts for ESRD dx wts in the 210's vs 240's a few week ago 2) Monitor BGs closely, for hypoglycemia h/o frequent hypoglycemia during prev admissions 3) Monitor PO intake closely: appears to be improved at this time -> monitor need to decrease Nepro HPN 4) Add Nephrovite x 1 for skin integrity Nestor Dyson March 31, 2020 15:05
[2020-03-31 16:00] VITALS: BP 97/57
--- NOTE | 2020-03-31 17:08 | Infectious Diseases Prog Note ---
Assessment/Plan Assessment/Plan The patient is a 64-year-old female with Proteus bacteremia Persistent/recurrent S.epi and VRE bactereima (despite 6 weeks of treatment)- highly suspicious for endovascular source (ie AVF infection, endocarditis) 03/09 Bcx 02/27 VRE, S. epi, 03/10 Bcx 02/27 P . mirabilis, probable amp-C; VRE, CONS; 03/11 Bcx 2/2 sets S.epi; 03/15 12/30 S. epi, 11/29 VRE; 03/16 Bcx 3/S.epi, 1VRE, 03/20 Bcx / S/epi; 03/24 Bcx Neg -03/15 CT abd/p: Cardiomegaly. Evidence of left ventricular muscular hypertrophy. Bilateral lower lobe and inferior lingular ill-defined parenchymal infiltrates, likely pneumonia but could indicate a component of pulmonary edema. Incidental findings as noted, including right renal cyst, evidence of prior hysterectomy, pacemaker, PICC, coronary stents and calcifications. Enlarged heterogeneous thyroid. No acute abdominal process cholelithiasis and/ or gallbladder sludge. Diastasis of the rectus abdominis tendon and small fat- containing ventral hernia, also demonstrated previously. Confirmed COVID-19. 02/19 SARS-CoV PCR positive. -03/22 COVID neg x1 -1st repeat neg 03/11 ; 2nd repeat is positive 03/13; has now 2 neg COVID (03/22 , 03/24) Pneumonia Mild leukocytosis, SP -03/09 u/a wbc 40-60, nit neg, leuk +3 Fever, recurrent, SP VDRF- sp self extubation 03/05, now on at RA - likely 2/2 COVID, less likely active bacterial superinfection since pt just completed empiric course of antibacterial therapy and sputum cx NG -03/07 CXR: Persistent vascular congestion and suspected interstitial edema.Cardiomegaly with pacer. - 03/01 CXR: Worsening bilateral hazy parenchymal infiltrates, versus edema - 02/20 CXR: Mild pulmonary vascular congestion with subtle bilateral haziness, not significantly changed.Possible tiny pleural effusions. Cardiomegaly. - Bcx ngtd - sp cx normal gui -03/30 Cdiff neg Less likely UTI u/a wbc tnct, nit +, leuk +3; ucx cindy(colonizer) Hx of positive blood culture CONS ,persistent; recurrent 02/04 BCx: CoNS 3 Bc: (1/2)CoNS and Citrobacter 3/ , 02/01 Bc: CoNS - (outside facility, # of the +ve cultures are not clear) A 2D echo from outside facility did not show any evidence of vegetation as per Carido pt is high risk for CLAY: ( last admission ) Diabetes. CHF. ESRD. Hypertension. Obesity. 03/08 SP PICC Line placement; removed on 03/15 and new one placed PLAN: COntinue IV Vancomycin #7(abx d#-42)- -will dose IV Vancomycin via AVF during HD days given pt lost IV access (had lost it multiple times already, hard stick) Continue Linezolid #14/ for synergisms -monitor platelets 03/26 SP IM ertapenem #2 03/24 SP Cefepime #10, Daptomycin #13 03/15 SP Meropenem #4 03/12/20 SP IV Vancomycin #2 03/08 SP vancomycin, day # ? ( will Rx for probable SBE) 02/27 SP plaquenil+azithromycin #5 02/25 SP Ertapenem #8 02/24 DC amikacin #6 Ok to dc COVID isolation (COVID neg x2 03/22 and 03/24) CLAY-high riks per cardiology, will need to be intubated for procedure Will doWBC scan first to evaluate AVF as source- pt has no IV access for study, will try to again PICC line again and secure it so patient cannot pull it ( patient has already pull multiple PICC lines)- may also need a sitter. Monitor CBC. Monitor BMP. Monitor cultures f/u Bcx x2 PICC line DW RN Subjective Allergies: Coded Allergies: NO KNOWN ALLERGIES (Unverified Allergy, Unknown, 10/15/15) Subjective afebrile awaiting pICC Line for WBC scan study Objective Vital Signs Last 24 Hour Vital Signs Date Time Temp Pulse Resp B/P (MAP) Pulse Ox O2 Delivery O2 Flow Rate FiO2 03/31/20 16:00 95.9 70 19 97/57 (70) 100 03/31/20 12:00 96.0 86 18 97/74 (82) 100 03/31/20 09:00 Room Air 03/31/20 08:00 96.4 70 18 104/42 (62) 97 03/31/20 04:13 97.8 77 22 98/56 (70) 96 03/31/20 00:18 97.4 94 18 105/65 (78) 96 03/30/20 20:40 97.1 85 18 120/65 (83) 100 03/30/20 20:15 Room Air Height (Feet): 5 Height (Inches): 7.00 Weight (Pounds): 210 Objective General Appearance: lethargic EENT: normal ENT inspection Neck: normal alignment Cardiovascular: normal rate, regular rhythm Respiratory/Chest: no respiratory distress, no accessory muscle use Extremities: normal inspection Skin: normal pigmentation Microbiology Date/Time Source Procedure Growth Status 03/30/20 10:30 Stool Clostridium difficile Toxin Assay - Final Complete 03/30/20 10:30 Stool Received Current Medications Medications (Trade) Dose Ordered Sig/Josi Route PRN Reason Start Time Stop Time Status Last Admin Dose Admin Acetaminophen (Tylenol) 650 mg Q4H PRN GT fever 03/10/20 23:45 04/07/20 23:39 Albuterol/ Ipratropium (Combivent Respimat) 1 puff Q4H PRN INH Shortness of Breath 03/10/20 23:45 04/07/20 23:40 Atorvastatin Calcium (Lipitor) 10 mg BEDTIME NG 03/11/20 21:00 05/25/20 20:59 03/30/20 20:57 Barium Sulfate (Varibar Honey) 250 ml NOW PRN MC RAD 03/29/20 14:30 04/01/20 14:24 Barium Sulfate (Varibar [place]) 240 ml NOW PRN MC RAD 03/29/20 14:30 04/01/20 14:24 Barium Sulfate (Varibar Pudding) 230 ml NOW PRN MC RAD 03/29/20 14:30 04/01/20 14:24 Chlorhexidine Gluconate (Jenny-Hex 2%) 1 applic DAILY@2000 TOPIC 03/30/20 20:00 06/28/20 19:59 Epoetin Jose De Jesus (Epoetin Jose De Jesus(ESRD on dialysis)) 6,000 unit MON-WED-FRI SUBQ 03/31/20 21:00 06/29/20 20:59 Heparin Sodium (Porcine) (Heparin 5000 units/ml) 5,000 units EVERY 12 HOURS SUBQ 03/11/20 09:00 04/10/20 08:59 03/28/20 22:30 Insulin Aspart (NovoLOG) Q6HR SUBQ 03/11/20 00:00 05/20/20 12:29 03/31/20 00:11 Linezolid (Zyvox) 600 mg EVERY 12 HOURS ORAL 03/25/20 21:00 04/03/20 23:59 03/30/20 20:56 Memantine (Namenda) 5 mg DAILY ORAL 03/22/20 09:00 04/21/20 08:59 03/30/20 08:10 Pantoprazole (Protonix) 40 mg EVERY 12 HOURS ORAL 03/17/20 21:00 04/16/20 20:59 03/30/20 20:56 Pyridoxine HCl (Vitamin B6) 50 mg DAILY ORAL 03/18/20 09:00 04/17/20 08:59 03/30/20 08:10 Sevelamer Carbonate (Renvela) 1,600 mg TID NG 03/18/20 13:00 05/25/20 11:59 03/31/20 14:04 Thiamine HCl (Vitamin B1) 100 mg DAILY ORAL 03/18/20 09:00 04/17/20 08:59 03/30/20 08:10 Vancomycin HCl (Vanco rx to dose) 1 ea DAILY PRN MISC . 03/25/20 14:45 04/24/20 14:44 Vancomycin HCl 1 gm/Sodium Chloride 275 ml @ 183.708 mls/hr 3XW PRN IVPB GIVE WITH HD ON HD DAYS 03/31/20 09:00 04/05/20 08:59 Susi Vanegas M.D. March 31, 2020 17:08
--- NOTE | 2020-03-31 19:23 | NUR ---
HAND-OFF: Report given to Mohsen.
--- NOTE | 2020-03-31 19:23 | Cardiology Progress Note ---
Assessment/Plan Assessment/Plan 1. Respiratory failure. 2. History of obesity hypoventilation syndrome. 3. History of pulmonary hypertension previously. 4. Urinary tract infection. 5. covid 19 infection confimred 6. pneumonia. 7. History of bacteremia with Staph epi recently on 02/05/2020. 8. somnolence 9. Polymicrobial bacteremia repeat blood cx neg still echo transthoracic on 03/24/2020 was neg and no valve regurgitation afebrile normal wbc this pt is felt to be high risk for mayco and will require intubation for this procedure per my last discussion with dr hazel, i understand that mayco has been ordered however in light of all the above , i think we should have at least a reasonable chance that this test will be helpful if + or if - before putting her through all of this i think if the shunt can be a source then it should be evaluated first to see if that will explain all the bacteremia before putting her through this high risk mayco await 2nd opion cardiology consultation for MAYCO c diff neg sat are fine and bp is ok no fever all labs reviewed wbc normal still , sed rate was only 38 afew days ago no fever since 03/05 covid neg from 03/11 + on 03/13, repeat neg 03/23 and 03/24 need wbc scan for avf eval per id bc remain neg Subjective Subjective per staff comfortabel Objective Last 24 Hour Vital Signs Date Time Temp Pulse Resp B/P (MAP) Pulse Ox O2 Delivery O2 Flow Rate FiO2 03/31/20 16:00 95.9 70 19 97/57 (70) 100 03/31/20 12:00 96.0 86 18 97/74 (82) 100 03/31/20 09:00 Room Air 03/31/20 08:00 96.4 70 18 104/42 (62) 97 03/31/20 04:13 97.8 77 22 98/56 (70) 96 03/31/20 00:18 97.4 94 18 105/65 (78) 96 03/30/20 20:40 97.1 85 18 120/65 (83) 100 03/30/20 20:15 Room Air Intake and Output 03/30/20 03/31/20 19:00 07:00 Intake Total 600 ml 360 ml Balance 600 ml 360 ml Other 600 ml 360 ml # Bowel Movements 3 Microbiology Date/Time Source Procedure Growth Status 03/30/20 10:30 Stool Clostridium difficile Toxin Assay - Final Complete 03/30/20 10:30 Stool Received Wilfredo Reyna MD March 31, 2020 19:23
--- NOTE | 2020-03-31 19:25 | NUR ---
NURSE NOTES: Pt. received from ASHLIE Bean. Pt. AAOx3, on room air, breathing even and unlabored, and no complaints of pain at this time. AV shunt noted right upper arm, positive for bruit and thrill. IV site noted left upper arm, for NM procedure. Bed is low and locked, side rails x3 up, bed alarm active, and call light in reach. Will continue to monitor.
[2020-03-31 20:00] VITALS: BP 85/51
[2020-03-31] MEDS: Dyna-Hex 2% Top Sol 2oz TOPIC SCH (20:49)
[2020-03-31] MEDS ORDERED: Epoetin Alfa-EPBX(ESRD on dialysis)3000 units/ml vial SUBQ SCH (21:00)
--- NOTE | 2020-03-31 21:14 | Progress Note ---
DATE: 03/31/2020 SUBJECTIVE: This is a 64-year-old female with respiratory failure. She has altered mental status, high levels of anxiety, mood lability, and decline in cognition below the baseline. DIAGNOSIS: Major depressive disorder, mild, recurrent with psychotic features. PLAN: Continue titrating up on her medications. Provide her with 20 minutes of cognitive behavioral therapy to help her identify automatic negative thoughts and help to convert her negative thoughts to more positive thoughts to reduce depression, anxiety, mood lability. Chart reviewed. Discussed with staff. Seen and assessed at bedside. Iker Lawrence M.D. DR: Steffi JOB#: [id number] CC:
[2020-04-01] VITALS: BP 93/48
[2020-04-01] MEDS: NovoLOG Insulin Flexpen SUBQ SCH ×4 (00:13→17:30)
--- NOTE | 2020-04-01 02:45 | Consultation ---
DATE OF CONSULTATION: 03/31/2020 SECOND OPINION CARDIOLOGY CONSULTATION CONSULTING PHYSICIAN: Shalom Costa MD. REFERRING PHYSICIAN: Wilfredo Reyna MD. ADDITIONAL REFERRING PHYSICIAN: Roderick Henning DO. REASON FOR CONSULTATION: Evaluation for transesophageal echocardiography in a patient history of bacteremia, history of end-stage renal disease. HISTORY OF PRESENT ILLNESS: The patient is a very unfortunate 64-year-old female, resident of a [place] [facility] facility with prior history of end-stage renal disease, dual chamber pacemaker implantation, hypertension, asthma/COPD, congestive heart failure, diabetes mellitus, and neuropathy who initially presented to this facility for fever, O2 desaturation, and altered mental status. The patient was found to have COVID-19 antibody. She was treated for this condition and her condition improved. During the course of this consultation, she had bacteremia with Staphylococcus epidermidis which was initially found on 03/09/2020 with blood cultures as well as VRE. Last blood culture in 03/24/2020 which showed no growth after 5 days with no concomitant evidence of fever, chills, or laboratory evidence of leukocytosis. There was a question for transesophageal echocardiography in this patient who has presumptive diagnosis of infective endocarditis in the presence of AV shunt and pacemaker wires. Second opinion Cardiology consultation was made. At the time of my evaluation, the patient did not have any chest pain or shortness of breath. She did not have any fever or chills. Her communication was limited due to significant hearing loss and underlying dementia. PAST MEDICAL HISTORY: As mentioned above including end-stage renal disease, diabetes mellitus, diabetic neuropathy, bacteremia with Staphylococcus epidermidis and VRE treated with IV antibiotics in this admission, history of hypertension, history of COVID-19 infection, history of CAD, history of congestive heart failure, history of gastroesophageal reflux disease, history of syncope, history of tremors, history of vertigo, history of asthma/COPD. PAST SURGICAL HISTORY: AV shunt. FAMILY HISTORY: No premature coronary artery disease in first-degree relatives. ALLERGIES: No known drug allergies. MEDICATIONS: List of medications in the nursing facility includes acetaminophen, amlodipine 10 mg daily, ascorbic acid, atorvastatin 10 mg at bedtime, cefepime, clonidine 0.1 mg q.6h. p.r.n. high blood pressure above 160 mmHg, Benadryl, Colace, Epogen, gabapentin, hydralazine 25 mg every four hours, Salix, acidophilus, lorazepam, pantoprazole, MiraLAX, , thiamine, vancomycin, zinc gluconate, and Ambien. REVIEW OF SYSTEMS: HEENT: Denies any headache, diplopia, or blurred vision. CONSTITUTIONAL: Currently no fever, chills, night sweats, or blurred vision. CARDIOVASCULAR: Denies any chest pain, shortness breath, PND, orthopnea, leg swelling. PULMONARY: Denies any cough, hemoptysis, or wheezing. GASTROINTESTINAL: Denies any nausea, vomiting, diarrhea, constipation, abdominal pain, or GI bleed. GENITOURINARY: On hemodialysis three days of week. NEUROLOGY: Denies any motor dysfunction, sensory deficit, or altered speech. PHYSICAL EXAMINATION: VITAL SIGNS: Blood pressure 97/74 mmHg, heart rate of 86, respirations of 18, temperature 96.0 degrees Fahrenheit, O2 saturation 100%. GENERAL: The patient is a very unfortunate 64-year-old female, in no apparent respiratory distress, awake, hard of hearing, answering to my questions appropriately. HEENT: Atraumatic and normocephalic. Anicteric. Pupils are equal, round, and reactive to light and accommodation. Extraocular muscles intact. NECK: JVP cannot be assessed. No carotid bruit. Carotid upstrokes 2+ bilaterally. CVS: Normal S1, S2. Regular rate and rhythm. A 2/6 mid systolic murmur at left sternal border. PMI is at fourth intercostal space at midclavicular line. LUNGS: Clear to auscultation bilaterally. ABDOMEN: Soft, nontender, and nondistended. No hepatosplenomegaly. Positive bowel sounds. EXTREMITIES: No evidence of edema, clubbing, or cyanosis. LABORATORY AND DIAGNOSTIC DATA: Imaging studies, CT of chest showed from 03/15/2020 was significant for bilateral lower lobe and anterior lingula ill-defined parenchymal infiltrate likely pneumonia. A 12-lead electrocardiogram showed sinus rhythm with normal QT interval, no ischemic changes, possible inferior infarct, age indeterminate. COVID-19 PCR on 03/24/2020 nondetected. Blood culture on 03/24/2020 no growth after 5 days. C. difficile toxin was negative for toxin A and B as needed. CBC, WBC 6.9, hemoglobin 9.7, hematocrit 31.4, and platelet count 135. Sodium was 137, potassium is 4.6, chloride 96, bicarbonate 7, BUN of 65, and creatinine 9.8, glucose is 126. Calcium is 10.0. CRP was 1.4. ProBNP is 3721. ASSESSMENT/PLAN: The patient is a very unfortunate 64-year-old female, who is seen as second opinion Cardiology consultation at request of Dr. Reyna and Dr. Henning. 1. Although the patient has bacteremia with multiple agents including VRE vas well as Staphylococcus epidermidis it appears that the source of infection has been identified and appropriate antibiotic therapy has eradicating the infection. C-reactive protein is within normal limits. The patient has been afebrile at least for the past 48 hours. There is no leukocytosis and the patient is hemodynamically stable. A 2D echocardiography does not show any significant valvular regurgitation apart from mild tricuspid regurgitation commonly seen in patients with pulmonary hypertension due to hemodialysis/end-stage renal disease. At this time, it appears that the infection is well controlled with current antibiotics with blood cultures being negative in the past five days. There is no indication for transesophageal echocardiography at this time according criteria. Thank you very much for involving in the care of this most pleasant patient. Shalom Costa M.D. DR: Rama JOB#: [id number] CC:
[2020-04-01 04:00] VITALS: BP 96/53
--- NOTE | 2020-04-01 07:46 | NUR ---
HAND-OFF: Report given to NATHALIA Leyva.
[2020-04-01 08:00] VITALS: BP 119/58
--- NOTE | 2020-04-01 08:00 | NUR ---
NURSE NOTES: Received report from nuha Connolly laying in bed with no signs of distress or other issues at this time. IV on the right upper arm AV shut for HD access. last HD 5/6, 1200ml fluids out. last blood sugar 84, juice were given per report. no skin issues. call light within reach, bed in lowest position, side rales up x2. I will f/u as needed.
[2020-04-01] MEDS: Heparin 5000 units/ml inj SUBQ SCH (09:00)
[2020-04-01] MEDS: Thiamine 100mg tab ORAL SCH (09:18)
[2020-04-01] MEDS: Memantine 5 MG TAB ORAL SCH (09:18)
[2020-04-01] MEDS: Pyridoxine 50mg tab ORAL SCH (09:18)
[2020-04-01] MEDS: Renvela 800mg Pkt NG SCH ×3 (09:18→17:36)
[2020-04-01 09:23] LABS: ANION GAP 12 mmol/L (5-15); BLOOD UREA NITROGEN 70 mg/dL (7-18); CALCIUM 9.7 MG/DL (8.5-10.1); CARBON DIOXIDE 26 MMOL/L (21-32); CHLORIDE 97 MMOL/L (98-107); POTASSIUM 4.8 MMOL/L (3.5-5.1); SODIUM 135 MMOL/L (136-145)
[2020-04-01] MEDS ORDERED: LORazepam 1mg tab ORAL PRN (09:30)
[2020-04-01 09:51] LABS: BASOPHILS % (AUTO) 1.2 % (0.0-2.0); EOSINOPHILS % (AUTO) 6.2 % (0.0-3.0); HEMATOCRIT 28.6 % (37.0-47.0); LYMPHOCYTES % (AUTO) 32.2 % (20.0-45.0); MEAN CORPUSCULAR VOLUME 79 FL (80-99); MONOCYTES % (AUTO) 7.9 % (1.0-10.0); NEUTROPHILS % (AUTO) 52.4 % (45.0-75.0); PLATELET COUNT 114 K/UL (150-450); RED BLOOD COUNT 3.62 M/UL (4.20-5.40); RED CELL DISTRIBUTION WIDTH 19.6 % (11.6-14.8); WHITE BLOOD COUNT 6.8 K/UL (4.8-10.8)
--- NOTE | 2020-04-01 10:32 | NUR ---
SOFTWARE ENGINEERING SPECIALIST NOTE CALL TO DR LAN TO INQUIRE ON POC FOR PATIENT. STATES THERE IS PLAN FOR CLAY. DR LAN INFORMED THAT DIAGNOSTICS HAVE BEEN UNSUCCESSFUL PATIENT HAS INCREASED AGITATION AND UNABLE TO STAY STILL DURING PROCEDURES. REQUESTED FOR CM TO FOLLOW UP WITH ALL CONSULTANTS FOR CLEARANCE.
--- NOTE | 2020-04-01 10:42 | Nephrology Progress Note ---
Assessment/Plan Problem List: (1) Acute respiratory failure (2) ESRD (end stage renal disease) on dialysis (3) UTI (urinary tract infection) (4) Patient is Christian (5) Pacemaker (6) Diabetes (7) Obesity (BMI 30-39.9) Assessment ARDS (adult respiratory distress syndrome) Fever Sepsis UTI (urinary tract infection) Respiratory failure, intubated on ventilator Thrombocytopenia Lymphopenia End stage renal disease on dialysis. Has a right upper arm dialysis fistula as Acces . Getting dialysis Sunday. morbid obesity Anemia / Jehova's witness CAD previous stent HTN- hypertensive urgency upon arrival to [facility]. s/p AVG DM 2 bilateral eye blindness h/o CHF Pacemaker Plan Last dialysis March 29. Next dialysis March 31 done, patient was fluid challenged during dialysis for hypotension next dialysis April 02 Antibiotics per IV Today's labs still not drawn most likely the patient refused Previously on Zyvox and cefepime and daptomycin There is an issue with patient's IV line. She has pulled out previous PICC line's. Discussed with RN Previously Patient extubated March 04, and remains extubated, now in MedSurg floor Patient positive for Covid 19 Per ID and pulmonary, Last dialyzed March 23 next dialysis March 25 EPO, thiamin and b6 Phos binders NGT feeding per consultants Remains full code at this time Subjective ROS Limited/Unobtainable: No Constitutional: Reports: malaise, weakness Objective Objective Last 24 Hour Vital Signs Date Time Temp Pulse Resp B/P (MAP) Pulse Ox O2 Delivery O2 Flow Rate FiO2 04/01/20 08:00 96.4 70 17 119/58 (78) 100 04/01/20 04:00 98.1 77 18 96/53 (67) 91 04/01/20 00:00 97.9 68 16 93/48 (63) 91 03/31/20 21:00 Room Air 03/31/20 20:00 98.3 74 18 85/51 (62) 92 03/31/20 16:00 95.9 70 19 97/57 (70) 100 03/31/20 12:00 96.0 86 18 97/74 (82) 100 Intake and Output 03/31/20 04/01/20 19:00 07:00 Intake Total 600 ml 240 ml Output Total 1200 ml Balance -600 ml 240 ml Intake Oral 600 ml 240 ml Hemodialysis UF 1200 ml # Voids 1 # Bowel Movements 1 1 Laboratory Tests 04/01/20 08:55: Sodium Level 135L, Potassium Level 4.8, Chloride Level 97L, Carbon Dioxide Level 26, Anion Gap 12, Blood Urea Nitrogen 70H, Creatinine 10.0H, Estimat Glomerular Filtration Rate 4.7, Glucose Level 103, Calcium Level 9.7, Phosphorus Level [Pending], Magnesium Level [Pending], Total Bilirubin [Pending] , Direct Bilirubin [Pending], Aspartate Amino Transf (AST/SGOT) [Pending], Alanine Aminotransferase (ALT/SGPT) [Pending], Alkaline Phosphatase [Pending], Total Protein [Pending], Albumin [Pending] 04/01/20 09:30: White Blood Count 6.8, Red Blood Count 3.62L, Hemoglobin 9.0L, Hematocrit 28.6L , Mean Corpuscular Volume 79L, Mean Corpuscular Hemoglobin 24.7L, Mean Corpuscular Hemoglobin Concent 31.4L, Red Cell Distribution Width 19.6H, Platelet Count 114L, Mean Platelet Volume 6.6, Neutrophils (%) (Auto) 52.4, Lymphocytes (%) (Auto) 32.2, Monocytes (%) (Auto) 7.9, Eosinophils (%) (Auto) 6.2H, Basophils (%) (Auto) 1.2 Height (Feet): 5 Height (Inches): 7.00 Weight (Pounds): 216 General Appearance: no apparent distress Cardiovascular: normal rate Respiratory/Chest: decreased breath sounds Abdomen: soft Objective No change Bryan Hunter MD April 01, 2020 10:42
[2020-04-01 10:48] LABS: ALANINE AMINOTRANSFERASE 42 U/L (12-78); ALBUMIN 3.4 G/DL (3.4-5.0); ALKALINE PHOSPHATASE 223 U/L (46-116); ASPARTATE AMINO TRANSFERASE 35 U/L (15-37); BILIRUBIN,DIRECT 0.3 MG/DL (0.0-0.3); BILIRUBIN,TOTAL 1.1 MG/DL (0.2-1.0); PHOSPHORUS 5.3 MG/DL (2.5-4.9)
--- NOTE | 2020-04-01 11:05 | General Progress Note ---
Assessment/Plan Status: unchanged Assessment/Plan: 1. Diabetes. 2. End-stage renal disease, on hemodialysis. 3. Chronic anemia. 4. Obesity. 5. Gastritis. 6. Kidney stones. 7. Abdominal hernia. 8. Hiatal hernia. 9. Cardiomegaly. 10. Hypercholesterolemia. 11. Hypertension. 12. Bilateral eye blindness. 13. Coronary artery disease and cardiac stent placement. 14. History of EtOH and cocaine abuse in the past. 15. Dysphagia abd CT reviewed COVID positive swallow eval appreciated on diet fu cardiology and Id recs HD per nephrology fu labs recent labs and notes reviewed hold GI procedures for now check stool ob Subjective ROS Limited/Unobtainable: Yes Allergies: Coded Allergies: NO KNOWN ALLERGIES (Unverified Allergy, Unknown, 10/15/15) Objective Last 24 Hour Vital Signs Date Time Temp Pulse Resp B/P (MAP) Pulse Ox O2 Delivery O2 Flow Rate FiO2 04/01/20 08:00 96.4 70 17 119/58 (78) 100 04/01/20 04:00 98.1 77 18 96/53 (67) 91 04/01/20 00:00 97.9 68 16 93/48 (63) 91 03/31/20 21:00 Room Air 03/31/20 20:00 98.3 74 18 85/51 (62) 92 03/31/20 16:00 95.9 70 19 97/57 (70) 100 03/31/20 12:00 96.0 86 18 97/74 (82) 100 Intake and Output 03/31/20 04/01/20 19:00 07:00 Intake Total 600 ml 240 ml Output Total 1200 ml Balance -600 ml 240 ml Intake Oral 600 ml 240 ml Hemodialysis UF 1200 ml # Voids 1 # Bowel Movements 1 1 Laboratory Tests 04/01/20 08:55: Sodium Level 135L, Potassium Level 4.8, Chloride Level 97L, Carbon Dioxide Level 26, Anion Gap 12, Blood Urea Nitrogen 70H, Creatinine 10.0H, Estimat Glomerular Filtration Rate 4.7, Glucose Level 103, Calcium Level 9.7, Phosphorus Level 5.3H, Magnesium Level 3.1H, Total Bilirubin 1.1H, Direct Bilirubin 0.3, Aspartate Amino Transf (AST/SGOT) 35, Alanine Aminotransferase ( ALT/SGPT) 42, Alkaline Phosphatase 223H, Total Protein 7.8, Albumin 3.4 04/01/20 09:30: White Blood Count 6.8, Red Blood Count 3.62L, Hemoglobin 9.0L, Hematocrit 28.6L , Mean Corpuscular Volume 79L, Mean Corpuscular Hemoglobin 24.7L, Mean Corpuscular Hemoglobin Concent 31.4L, Red Cell Distribution Width 19.6H, Platelet Count 114L, Mean Platelet Volume 6.6, Neutrophils (%) (Auto) 52.4, Lymphocytes (%) (Auto) 32.2, Monocytes (%) (Auto) 7.9, Eosinophils (%) (Auto) 6.2H, Basophils (%) (Auto) 1.2 Height (Feet): 5 Height (Inches): 7.00 Weight (Pounds): 216 General Appearance: no apparent distress EENT: normal ENT inspection Neck: supple Cardiovascular: normal rate Abdomen: normal bowel sounds, non tender, soft Extremities: non-tender Jamison Garcia MD April 01, 2020 11:05
--- NOTE | 2020-04-01 11:17 | Pulmonology Progress Note ---
Subjective ROS Limited/Unobtainable: Yes Interval Events: comfortable, resting, WBC scan in process. pt will be scaneed today. Allergies: Coded Allergies: NO KNOWN ALLERGIES (Unverified Allergy, Unknown, 10/15/15) All Systems: reviewed and negative except above Objective Last 24 Hour Vital Signs Date Time Temp Pulse Resp B/P (MAP) Pulse Ox O2 Delivery O2 Flow Rate FiO2 04/01/20 08:00 96.4 70 17 119/58 (78) 100 04/01/20 04:00 98.1 77 18 96/53 (67) 91 04/01/20 00:00 97.9 68 16 93/48 (63) 91 03/31/20 21:00 Room Air 03/31/20 20:00 98.3 74 18 85/51 (62) 92 03/31/20 16:00 95.9 70 19 97/57 (70) 100 03/31/20 12:00 96.0 86 18 97/74 (82) 100 Intake and Output 03/31/20 04/01/20 19:00 07:00 Intake Total 600 ml 240 ml Output Total 1200 ml Balance -600 ml 240 ml Intake Oral 600 ml 240 ml Hemodialysis UF 1200 ml # Voids 1 # Bowel Movements 1 1 General Appearance: cachetic HEENT: normocephalic, atraumatic Respiratory/Chest: chest wall non-tender, lungs clear Breasts: no masses Cardiovascular: normal peripheral pulses, normal rate, other - LUE PICC intact Abdomen: normal bowel sounds, soft, non tender Genitourinary: normal external genitalia Extremities: no cyanosis, other - trace edema BLE, RUE AV shunt + bruit/thrill Skin: no lesions Neurologic/Psychiatric: test fixture assembler II-XII grossly normal Lymphatic: no neck adenopathy Microbiology Date/Time Source Procedure Growth Status 03/30/20 10:30 Stool Clostridium difficile Toxin Assay - Final Complete 03/30/20 10:30 Stool Stool Culture - Final NO SALMONELLA,SHIGELLA,CAMPYLOBACTER,... Complete Laboratory Tests 04/01/20 08:55: Sodium Level 135L, Potassium Level 4.8, Chloride Level 97L, Carbon Dioxide Level 26, Anion Gap 12, Blood Urea Nitrogen 70H, Creatinine 10.0H, Estimat Glomerular Filtration Rate 4.7, Glucose Level 103, Calcium Level 9.7, Phosphorus Level 5.3H, Magnesium Level 3.1H, Total Bilirubin 1.1H, Direct Bilirubin 0.3, Aspartate Amino Transf (AST/SGOT) 35, Alanine Aminotransferase ( ALT/SGPT) 42, Alkaline Phosphatase 223H, Total Protein 7.8, Albumin 3.4 04/01/20 09:30: White Blood Count 6.8, Red Blood Count 3.62L, Hemoglobin 9.0L, Hematocrit 28.6L , Mean Corpuscular Volume 79L, Mean Corpuscular Hemoglobin 24.7L, Mean Corpuscular Hemoglobin Concent 31.4L, Red Cell Distribution Width 19.6H, Platelet Count 114L, Mean Platelet Volume 6.6, Neutrophils (%) (Auto) 52.4, Lymphocytes (%) (Auto) 32.2, Monocytes (%) (Auto) 7.9, Eosinophils (%) (Auto) 6.2H, Basophils (%) (Auto) 1.2 Current Medications Medications (Trade) Dose Ordered Sig/Josi Route PRN Reason Start Time Stop Time Status Last Admin Dose Admin Acetaminophen (Tylenol) 650 mg Q4H PRN GT fever 03/10/20 23:45 04/07/20 23:39 Albuterol/ Ipratropium (Combivent Respimat) 1 puff Q4H PRN INH Shortness of Breath 03/10/20 23:45 04/07/20 23:40 Atorvastatin Calcium (Lipitor) 10 mg BEDTIME NG 03/11/20 21:00 05/25/20 20:59 03/31/20 20:48 Barium Sulfate (Varibar Honey) 250 ml NOW PRN MC RAD 03/29/20 14:30 04/01/20 14:24 Barium Sulfate (Varibar [place]) 240 ml NOW PRN MC RAD 03/29/20 14:30 04/01/20 14:24 Barium Sulfate (Varibar Pudding) 230 ml NOW PRN MC RAD 03/29/20 14:30 04/01/20 14:24 Chlorhexidine Gluconate (Jenny-Hex 2%) 1 applic DAILY@2000 TOPIC 03/30/20 20:00 06/28/20 19:59 Epoetin Jose De Jesus (Epoetin Jose De Jesus(ESRD on dialysis)) 6,000 unit SUN-SUN-SUN SUBQ 03/31/20 21:00 06/29/20 20:59 03/31/20 20:46 Heparin Sodium (Porcine) (Heparin 5000 units/ml) 5,000 units EVERY 12 HOURS SUBQ 03/11/20 09:00 04/10/20 08:59 03/28/20 22:30 Insulin Aspart (NovoLOG) Q6HR SUBQ 03/11/20 00:00 05/20/20 12:29 04/01/20 00:13 Lorazepam (Ativan) 1 mg Q6H PRN ORAL For Anxiety 04/01/20 09:30 04/08/20 09:29 Memantine (Namenda) 5 mg DAILY ORAL 03/22/20 09:00 04/21/20 08:59 04/01/20 09:18 Pantoprazole (Protonix) 40 mg EVERY 12 HOURS ORAL 03/17/20 21:00 04/16/20 20:59 04/01/20 09:18 Pyridoxine HCl (Vitamin B6) 50 mg DAILY ORAL 03/18/20 09:00 04/17/20 08:59 04/01/20 09:18 Sevelamer Carbonate (Renvela) 1,600 mg TID NG 03/18/20 13:00 05/25/20 11:59 04/01/20 09:18 Thiamine HCl (Vitamin B1) 100 mg DAILY ORAL 03/18/20 09:00 04/17/20 08:59 04/01/20 09:18 Vancomycin HCl (Vanco rx to dose) 1 ea DAILY PRN MISC . 03/25/20 14:45 04/24/20 14:44 Vancomycin HCl 1 gm/Sodium Chloride 275 ml @ 183.708 mls/hr 3XW PRN IVPB GIVE WITH HD ON HD DAYS 03/31/20 09:00 04/05/20 08:59 Assessment/Plan Problems: (1) Sepsis (2) Bacteremia (3) COVID-19 virus infection (4) Accelerated hypertension (5) At high risk for aspiration (6) ESRD (end stage renal disease) on dialysis (7) Diabetes (8) Patient is Baptism (9) Morbid obesity Assessment/Plan WBC scan in process. Pt will be scanned today. diarrhea resolved, Cdiff negative Covid negative X 2 on Vancomycin and Linezolid on isolation afebrile in the last few days f/u cultures respiratory treatment Meghana Murillo MD April 01, 2020 11:17
--- NOTE | 2020-04-01 11:38 | General Progress Note ---
Assessment/Plan Problem List: (1) Obesity (BMI 30-39.9) ICD Codes: E66.9 - Obesity, unspecified SNOMED: 743147125, 776021367 (2) COVID-19 virus infection ICD Codes: U07.1 - COVID-19 SNOMED: 486203269 (3) Acute respiratory failure ICD Codes: J96.00 - Acute respiratory failure, unspecified whether with hypoxia or hypercapnia SNOMED: 94516964 (4) Blindness of both eyes ICD Codes: H54.0 - Blindness SNOMED: 244633938 (5) ESRD (end stage renal disease) on dialysis ICD Codes: N18.6 - End stage renal disease; Z99.2 - Dependence on renal dialysis SNOMED: 975319349 (6) Anemia ICD Codes: D64.9 - Anemia, unspecified SNOMED: 685425534 (7) Diabetes ICD Codes: E11.9 - Type 2 diabetes mellitus without complications SNOMED: 75437669 (8) AMS (altered mental status) ICD Codes: R41.82 - Altered mental status, unspecified SNOMED: 259934360 Status: unchanged Assessment/Plan: vent abx dialysis cbc bmp am ltach eval Subjective Constitutional: Reports: weakness Allergies: Coded Allergies: NO KNOWN ALLERGIES (Unverified Allergy, Unknown, 10/15/15) All Systems: reviewed and negative except above Subjective lethargic sleepy Objective Last 24 Hour Vital Signs Date Time Temp Pulse Resp B/P (MAP) Pulse Ox O2 Delivery O2 Flow Rate FiO2 04/01/20 08:00 96.4 70 17 119/58 (78) 100 04/01/20 04:00 98.1 77 18 96/53 (67) 91 04/01/20 00:00 97.9 68 16 93/48 (63) 91 03/31/20 21:00 Room Air 03/31/20 20:00 98.3 74 18 85/51 (62) 92 03/31/20 16:00 95.9 70 19 97/57 (70) 100 03/31/20 12:00 96.0 86 18 97/74 (82) 100 Intake and Output 03/31/20 04/01/20 19:00 07:00 Intake Total 600 ml 240 ml Output Total 1200 ml Balance -600 ml 240 ml Intake Oral 600 ml 240 ml Hemodialysis UF 1200 ml # Voids 1 # Bowel Movements 1 1 Laboratory Tests 04/01/20 08:55: Sodium Level 135L, Potassium Level 4.8, Chloride Level 97L, Carbon Dioxide Level 26, Anion Gap 12, Blood Urea Nitrogen 70H, Creatinine 10.0H, Estimat Glomerular Filtration Rate 4.7, Glucose Level 103, Calcium Level 9.7, Phosphorus Level 5.3H, Magnesium Level 3.1H, Total Bilirubin 1.1H, Direct Bilirubin 0.3, Aspartate Amino Transf (AST/SGOT) 35, Alanine Aminotransferase ( ALT/SGPT) 42, Alkaline Phosphatase 223H, Total Protein 7.8, Albumin 3.4 04/01/20 09:30: White Blood Count 6.8, Red Blood Count 3.62L, Hemoglobin 9.0L, Hematocrit 28.6L , Mean Corpuscular Volume 79L, Mean Corpuscular Hemoglobin 24.7L, Mean Corpuscular Hemoglobin Concent 31.4L, Red Cell Distribution Width 19.6H, Platelet Count 114L, Mean Platelet Volume 6.6, Neutrophils (%) (Auto) 52.4, Lymphocytes (%) (Auto) 32.2, Monocytes (%) (Auto) 7.9, Eosinophils (%) (Auto) 6.2H, Basophils (%) (Auto) 1.2 Height (Feet): 5 Height (Inches): 7.00 Weight (Pounds): 216 General Appearance: lethargic EENT: normal ENT inspection Neck: normal alignment Cardiovascular: normal rate, regular rhythm Respiratory/Chest: no respiratory distress, no accessory muscle use Extremities: normal inspection Skin: normal pigmentation Roderick Henning DO April 01, 2020 11:38
[2020-04-01 12:00] VITALS: BP_SYST 110; BP_SYST 115; BP_DIAS 44; BP_DIAS 55
--- NOTE | 2020-04-01 12:41 | NUR ---
DISCHARGE PLANNING PATIENT HAS BEEN REFERRED BACK TO [facility] P: [phone] F: [phone] Addendum: 04/01/20 at 1422 by JHONNY BETTS LVN LVN S/Jordon JAMES AT [facility]. REPORTS THAT OF Sunday03/29/20 [facility] IS A COVID-19 POSITIVE ONLY FACILITY. STATES THEY ARE REFERRING THEIR NEGATIVE PATIENTS TO [facility]. THIS CM FAXED INQUIRY TO [facility] P: [phone] F: [phone] Addendum: 04/01/20 at 1451 by JHONNY BETTS LVN LVN FOLLOW UP CALL MADE. S/Jordon LAMAR. CONFIRMED RECEIPT OF INQUIRY. WILL REVIEW AND CALL THIS CM BACK.
--- NOTE | 2020-04-01 13:10 | Infectious Diseases Prog Note ---
Assessment/Plan Assessment/Plan The patient is a 64-year-old female with Proteus bacteremia Persistent/recurrent S.epi and VRE bactereima (despite 6 weeks of treatment)- highly suspicious for endovascular source (ie AVF infection, endocarditis) 03/09 Bcx 02/27 VRE, S. epi, 03/10 Bcx 02/27 P . mirabilis, probable amp-C; VRE, CONS; 03/11 Bcx 2/2 sets S.epi; 03/15 12/30 S. epi, 11/29 VRE; 03/16 Bcx 3/S.epi, 1/ VRE, 03/20 Bcx 2/4 S/epi; 03/24 Bcx Neg -03/31 Indium wbc scan: : Somewhat limited exam, as described. No definite abnormal focal tracer accumulation to suggest active infection demonstrated -03/15 CT abd/p: Cardiomegaly. Evidence of left ventricular muscular hypertrophy. Bilateral lower lobe and inferior lingular ill-defined parenchymal infiltrates, likely pneumonia but could indicate a component of pulmonary edema. Incidental findings as noted, including right renal cyst, evidence of prior hysterectomy, pacemaker, PICC, coronary stents and calcifications. Enlarged heterogeneous thyroid. No acute abdominal process cholelithiasis and/ or gallbladder sludge. Diastasis of the rectus abdominis tendon and small fat- containing ventral hernia, also demonstrated previously. Confirmed COVID-. 02/19 SARS-CoV PCR positive. -03/22 COVID neg x1 -1st repeat neg 03/11 ; 2nd repeat is positive 03/13; has now 2 neg COVID (03/22 , 03/24) Pneumonia Mild leukocytosis, SP -03/09 u/a wbc 40-60, nit neg, leuk +3 Fever, recurrent, SP VDRF- sp self extubation 03/05, now on at [facility] - likely 2/2 COVID, less likely active bacterial superinfection since pt just completed empiric course of antibacterial therapy and sputum cx NG -03/07 CXR: Persistent vascular congestion and suspected interstitial edema.Cardiomegaly with pacer. - 03/01 CXR: Worsening bilateral hazy parenchymal infiltrates, versus edema - 02/20 CXR: Mild pulmonary vascular congestion with subtle bilateral haziness, not significantly changed.Possible tiny pleural effusions. Cardiomegaly. - Bcx ngtd - sp cx normal gui -03/30 Cdiff neg Less likely UTI u/a wbc tnct, nit +, leuk +3; ucx cindy(colonizer) Hx of positive blood culture CONS ,persistent; recurrent 02/04 BCx: CoNS 01/30 Bc: (1/2)CoNS and Citrobacter 01/27 , 02/01 Bc: CoNS - (outside facility, # of the +ve cultures are not clear) A 2D echo from outside facility did not show any evidence of vegetation as per Carido pt is high risk for CLAY: ( last admission ) Diabetes. CHF. ESRD. Hypertension. Obesity. 03/08 SP PICC Line placement; removed on 03/15 and new one placed PLAN: COntinue IV Vancomycin #8(abx d#20)- -will dose IV Vancomycin via AVF during HD days given pt lost IV access (had lost it multiple times already, hard stick) --Patient had WBC scan did not showed localized infection (particularly on AVF), although limited study. Patient was deemed high risk for CLAY as would be needed to be intubated for procedure and sedation given but patient currently has no IV access. She has pull out multiple PICC lines. There is concern if we place a central line she will also pull it and at high risk for bleeding. Given patient was able to clear bacteremia and is currently afebrile, decision was to treat for additional 6 weeks from 1st negative blood culture on 03/24. Will continue IV Vancomycin 1g 3/week on HD days via AVF. At the end of therapy will need 2 sets of Blood cultures ( 1 week after antibiotics are finished) 03/31 SP Linezolid #14 03/26 SP IM ertapenem #2 03/24 SP Cefepime #10, Daptomycin #13 03/15 SP Meropenem #4 03/12/20 SP IV Vancomycin #2 03/08 SP vancomycin, day # ? ( will Rx for probable SBE) 02/27 SP plaquenil+azithromycin #5 02/25 SP Ertapenem #8 02/24 DC amikacin #6 Ok to dc COVID isolation (COVID neg x2 03/22 and 03/24) Monitor CBC. Monitor BMP. Monitor cultures JAE RN, pillowcase folder, Dr Murillo, Dr Henning, Subjective Allergies: Coded Allergies: NO KNOWN ALLERGIES (Unverified Allergy, Unknown, 10/15/15) Subjective afebrile no leukocytosis wbc scan negative Objective Vital Signs Last 24 Hour Vital Signs Date Time Temp Pulse Resp B/P (MAP) Pulse Ox O2 Delivery O2 Flow Rate FiO2 04/01/20 08:00 96.4 70 17 119/58 (78) 100 04/01/20 04:00 98.1 77 18 96/53 (67) 91 04/01/20 00:00 97.9 68 16 93/48 (63) 91 03/31/20 21:00 Room Air 03/31/20 20:00 98.3 74 18 85/51 (62) 92 03/31/20 16:00 95.9 70 19 97/57 (70) 100 Height (Feet): 5 Height (Inches): 7.00 Weight (Pounds): 216 Objective General Appearance: lethargic EENT: normal ENT inspection Neck: normal alignment Cardiovascular: normal rate, regular rhythm Respiratory/Chest: no respiratory distress, no accessory muscle use Extremities: normal inspection Skin: normal pigmentation Microbiology Date/Time Source Procedure Growth Status 03/30/20 10:30 Stool Clostridium difficile Toxin Assay - Final Complete 03/30/20 10:30 Stool Stool Culture - Final NO SALMONELLA,SHIGELLA,CAMPYLOBACTER,... Complete Laboratory Tests Test 04/01/20 08:55 04/01/20 09:30 Sodium Level 135 MMOL/L (136-145) L Potassium Level 4.8 MMOL/L (3.5-5.1) Chloride Level 97 MMOL/L (98-107) L Carbon Dioxide Level 26 MMOL/L (21-32) Anion Gap 12 mmol/L (5-15) Blood Urea Nitrogen 70 mg/dL (7-18) H Creatinine 10.0 MG/DL (0.55-1.30) H Estimat Glomerular Filtration Rate 4.7 mL/min (>60) Glucose Level 103 MG/DL (74-106) Calcium Level 9.7 MG/DL (8.5-10.1) Phosphorus Level 5.3 MG/DL (2.5-4.9) H Magnesium Level 3.1 MG/DL (1.8-2.4) H Total Bilirubin 1.1 MG/DL (0.2-1.0) H Direct Bilirubin 0.3 MG/DL (0.0-0.3) Aspartate Amino Transf (AST/SGOT) 35 U/L (15-37) Alanine Aminotransferase (ALT/SGPT) 42 U/L (12-78) Alkaline Phosphatase 223 U/L (46-116) H Total Protein 7.8 G/DL (6.4-8.2) Albumin 3.4 G/DL (3.4-5.0) White Blood Count 6.8 K/UL (4.8-10.8) Red Blood Count 3.62 M/UL (4.20-5.40) L Hemoglobin 9.0 G/DL (12.0-16.0) L Hematocrit 28.6 % (37.0-47.0) L Mean Corpuscular Volume 79 FL (80-99) L Mean Corpuscular Hemoglobin 24.7 PG (27.0-31.0) L Mean Corpuscular Hemoglobin Concent 31.4 G/DL (32.0-36.0) L Red Cell Distribution Width 19.6 % (11.6-14.8) H Platelet Count 114 K/UL (150-450) L Mean Platelet Volume 6.6 FL (6.5-10.1) Neutrophils (%) (Auto) 52.4 % (45.0-75.0) Lymphocytes (%) (Auto) 32.2 % (20.0-45.0) Monocytes (%) (Auto) 7.9 % (1.0-10.0) Eosinophils (%) (Auto) 6.2 % (0.0-3.0) H Basophils (%) (Auto) 1.2 % (0.0-2.0) Current Medications Medications (Trade) Dose Ordered Sig/Josi Route PRN Reason Start Time Stop Time Status Last Admin Dose Admin Acetaminophen (Tylenol) 650 mg Q4H PRN GT fever 03/10/20 23:45 04/07/20 23:39 Albuterol/ Ipratropium (Combivent Respimat) 1 puff Q4H PRN INH Shortness of Breath 03/10/20 23:45 04/07/20 23:40 Atorvastatin Calcium (Lipitor) 10 mg BEDTIME NG 03/11/20 21:00 05/25/20 20:59 03/31/20 20:48 Barium Sulfate (Varibar Honey) 250 ml NOW PRN MC RAD 03/29/20 14:30 04/01/20 14:24 Barium Sulfate (Varibar [place]) 240 ml NOW PRN RAD 03/29/20 14:30 04/01/20 14:24 Barium Sulfate (Varibar Pudding) 230 ml NOW PRN RAD 03/29/20 14:30 04/01/20 14:24 Chlorhexidine Gluconate (Jenny-Hex 2%) 1 applic DAILY@2000 TOPIC 03/30/20 20:00 06/28/20 19:59 Epoetin Jose De Jesus (Epoetin Jose De Jesus(ESRD on dialysis)) 6,000 unit SUN-SUN-SUN SUBQ 03/31/20 21:00 06/29/20 20:59 03/31/20 20:46 Heparin Sodium (Porcine) (Heparin 5000 units/ml) 5,000 units EVERY 12 HOURS SUBQ 03/11/20 09:00 04/10/20 08:59 03/28/20 22:30 Insulin Aspart (NovoLOG) Q6HR SUBQ 03/11/20 00:00 05/20/20 12:29 04/01/20 11:57 Lorazepam (Ativan) 1 mg Q6H PRN ORAL For Anxiety 04/01/20 09:30 04/08/20 09:29 04/01/20 11:29 Memantine (Namenda) 5 mg DAILY ORAL 03/22/20 09:00 04/21/20 08:59 04/01/20 09:18 Pantoprazole (Protonix) 40 mg EVERY 12 HOURS ORAL 03/17/20 21:00 04/16/20 20:59 04/01/20 09:18 Pyridoxine HCl (Vitamin B6) 50 mg DAILY ORAL 03/18/20 09:00 04/17/20 08:59 04/01/20 09:18 Sevelamer Carbonate (Renvela) 1,600 mg TID NG 03/18/20 13:00 05/25/20 11:59 04/01/20 09:18 Thiamine HCl (Vitamin B1) 100 mg DAILY ORAL 03/18/20 09:00 04/17/20 08:59 04/01/20 09:18 Vancomycin HCl (Vanco rx to dose) 1 ea DAILY PRN MISC . 03/25/20 14:45 04/24/20 14:44 Vancomycin HCl 1 gm/Sodium Chloride 275 ml @ 183.708 mls/hr 3XW PRN IVPB GIVE WITH HD ON HD DAYS 03/31/20 09:00 04/05/20 08:59 Susi Vanegas M.D. April 01, 2020 13:10
--- NOTE | 2020-04-01 13:29 | NUR ---
NM Indium WBC scan complete.
--- NOTE | 2020-04-01 13:43 | Diagnostic Imaging Report ---
Indication: Bacteremia, suspected AV fistula infection Technique: In vitro labeling of white blood cells with 480 uCi of indium-111. Cells reinjected, whole body and spot images obtained at 24 hours Comparison: none Findings: Exam is somewhat limited, as patient was unable to follow commands and hold still. Normal liver, spleen, and bone marrow activity is demonstrated. No abnormal activity is demonstrated. Specifically, no abnormal activity is seen in the upper right arm to suggest infection of the AV fistula. Impression: Somewhat limited exam, as described. No definite abnormal focal tracer accumulation to suggest active infection demonstrated
--- NOTE | 2020-04-01 15:10 | NUR ---
DISCHARGE PLANNING FOLLOW UP CALL MADE TO [facility]. A/W BRIANDA IN ADMISSIONS. CONFIRMS PATIENT ACCEPTED FOR PLACEMENT WITH BED 20-B SKILLED DR LAN INFORMED
[2020-04-01 15:15] VITALS: BP 98/45
--- NOTE | 2020-04-01 15:20 | NUR ---
NURSE NOTES: 1 unit ofPRBC started, verified blood with Makeda PEREZ. initial VS: 97.5, 66, 98/45. Spo2:96 on 3L via n/c. pt is none verbal so RN was unable to teach for s/s of adverse reaction. RN will monitor closer. I will f/u as needed. Addendum: 04/01/20 at 1530 by Gordon Smith RN please discard this note. This note belong to another patient.
--- NOTE | 2020-04-01 15:50 | NUR ---
PORTABLE TRACK CREW CHIEF NOTE PER DR LAN. OK TO DC TO [facility] IF CLEARED BY PULMO AND ID. NOTED AND CARRIED OUT. MESSAGE SENT TO DR BARAKAT AND DR CUEVAS REGARDING CLEARANCE PER DR BARAKAT, NEEDS TO BE CLEARED BY ID PER DR CUEVAS, WILL REVIEW PATIENT CHART AND GET BACK TO THIS CM Addendum: 04/01/20 at 1625 by JHONNY BETTS LVN LVN PER DR CUEVAS, PATIENT CLEAR TO DC TO [facility]. TO CONTINUE IV VANCO 1 GM VIA AVF 3X WEEK ON HD DAYS (FURTHER DOSE ADJUSTMENTS BY PHARMACY) UNTIL 05/04/20. WEEKLY CBC, BMP, VANCO TROUGH AND REPEAT 2 SETS OF BLOOD CULTURES ON 05/11/2020. ORDER NOTED AND FAXED TO [facility] P: [phone] F: [phone] CONFIRMED RECEIPT OF FAX WITH MORALES AT [facility]
[2020-04-01 16:00] VITALS: BP 99/55
--- NOTE | 2020-04-01 16:14 | Progress Note ---
DATE: 04/01/2020 SUBJECTIVE: This is a 64-year-old female patient with respiratory insufficiency. She also has anemia of chronic disease, obesity, uncontrolled diabetes, bronchitis, urinary tract infection, anemia, acute respiratory distress syndrome, rule out COVID-19, and hypertension medical illness and probably have had altered mental status and decline in cognition below baseline with increased anxiety. MENTAL STATUS EXAMINATION: This is a 64-year-old female. Appearance is disheveled. Attitude, irritable and agitated. Affect, guarded and restricted. Intellect poor. Mood, depressed and anxious. Motor activity, psychomotor agitation. Insight and judgment is poor. DIAGNOSIS: Major depressive disorder, mild, recurrent with psychotic features, rule out dementia with psychosis. PLAN: Treat the patient with Namenda 5 mg twice a day. Provide her with 20 minutes of cognitive behavioral therapy. Also treat the patient with a medication regimen of Ativan 1 mg every 6 hours p.r.n. anxiety and agitation. She will continued to be followed by Psychiatry throughout hospital course. Twenty minutes of insight-oriented psychotherapy to help her recognize her psychiatric and medical conditions, so that she will have better impulse control and behavior on the unit. Chart reviewed. Discussed with staff. Seen and assessed at bedside. Iker Lawrence M.D. DR: BÁRBARA JOB#: [id number] CC:
--- NOTE | 2020-04-01 16:26 | NUR ---
DISCHARGE PLAN PATIENT TO BE DISCHARGED TO [facility] [address] [facility] [id number] P: [phone] F: [phone] BED 20-B SKILLED BLS AMBULANCE TRANSPORTATION SCHEDULED WITH [facility] WITH ETA @ 1800 MIL[address] BARAKAT
--- NOTE | 2020-04-01 16:38 | NUR ---
CUSTOMER ACCOUNTS ADVISOR WEEKLY PROGRESS REPORT Pt is being seen for dysphagia management and tx. -Goals for intake variably met (not consistent at >75% of intake) 03/29/20 B NPO L 50% D 50% 03/30/20 B 50% L 50% D 50% 03/31/20 B 0% L 100% D 100% (Meal % for 04/01/20 not available in chart yet) -CUSTOMER ACCOUNTS ADVISOR attempted to complete MBSS w/ Pt on 03/31/20, however, Pt refused transfer down to radiology and examination was unable to be completed. CUSTOMER ACCOUNTS ADVISOR plans to re-attempt tomorrow if Pt is still in house. -Aspiration precautions sign posted above HOB, RN is aware of aspiration precautions and oral hygiene needs. CUSTOMER ACCOUNTS ADVISOR attempted to see Pt; Not alert for PO trials to determine safety w/ upgraded solids/liquids (Isolation for COVID has been discharged; COVID neg x2 on 03/22/20 and 03/24/20) PLAN: -Continue CUSTOMER ACCOUNTS ADVISOR dysphagia tx/management per swallow eval while Pt is in house. -Re-Attempt MBSS swallow evaluation to r/o silent aspiration, swallow physiology and efficacy. -Continue current diet texture while implementing safe swallow compensatory strategies posted at bedside.
--- NOTE | 2020-04-01 17:30 | NUR ---
NURSE NOTES: per Makeda SLOAN, pt is been accepted at [facility]. RN called report at [phone] s/w Jessi, she stated that she is not able to take report at this time since they don't have an accepting MD assigned at this time. Jessi stated that she will call back once she is able to get report. I will f/u as needed. - Makeda PEREZ is aware.
--- NOTE | 2020-04-01 17:45 | NUR ---
NURSE NOTES: Received a call back from emilee Adame/w Hillary SLOAN, she received report and is aware that pt will be needed Vanco 1g 3x a week (during HD) stop date 05/04/20 and dosage to be adjust per pharmacy. Dr. Vanegas also ordered CBC, BMP, and vanco through once a week. and vanco to give via HD and to repeat blood cultures x2 on 05/11. Hillary SLOAN is aware and will coordinate Vanco with HD center. I will f/u as needed.
--- NOTE | 2020-04-01 18:15 | NUR ---
NURSE NOTES: Report given to [facility] crew, pt left the floor with no signs of distress or other issues at this time. [facility] [address] [facility] [facility] [phone] (P) Assigned Room number: 20"B"
--- NOTE | 2020-04-01 18:18 | Surgery Progress Note ---
Surgery Progress Note Subjective Additional Comments discussed with ID and radiology was able to do scan today without new picc fortunately scan noted exam stable Objective Last 24 Hour Vital Signs Date Time Temp Pulse Resp B/P (MAP) Pulse Ox O2 Delivery O2 Flow Rate FiO2 04/01/20 16:00 96.4 79 18 99/55 (70) 100 04/01/20 12:00 97.0 72 18 115/55 (75) 100 04/01/20 09:00 Room Air 04/01/20 08:00 96.4 70 17 119/58 (78) 100 04/01/20 04:00 98.1 77 18 96/53 (67) 91 04/01/20 00:00 97.9 68 16 93/48 (63) 91 03/31/20 21:00 Room Air 03/31/20 20:00 98.3 74 18 85/51 (62) 92 I&O Intake and Output 03/31/20 04/01/20 19:00 07:00 Intake Total 600 ml 240 ml Output Total 1200 ml Balance -600 ml 240 ml Intake Oral 600 ml 240 ml Hemodialysis UF 1200 ml # Voids 1 # Bowel Movements 1 1 Cardiovascular: RSR Respiratory: clear Abdomen: soft, flat, non-tender, present bowel sounds Extremities: no tenderness, no cyanosis, pulses, other Laboratory Tests Test 04/01/20 08:55 04/01/20 09:30 Sodium Level 135 MMOL/L (136-145) L Potassium Level 4.8 MMOL/L (3.5-5.1) Chloride Level 97 MMOL/L (98-107) L Carbon Dioxide Level 26 MMOL/L (21-32) Anion Gap 12 mmol/L (5-15) Blood Urea Nitrogen 70 mg/dL (7-18) H Creatinine 10.0 MG/DL (0.55-1.30) H Estimat Glomerular Filtration Rate 4.7 mL/min (>60) Glucose Level 103 MG/DL (74-106) Calcium Level 9.7 MG/DL (8.5-10.1) Phosphorus Level 5.3 MG/DL (2.5-4.9) H Magnesium Level 3.1 MG/DL (1.8-2.4) H Total Bilirubin 1.1 MG/DL (0.2-1.0) H Direct Bilirubin 0.3 MG/DL (0.0-0.3) Aspartate Amino Transf (AST/SGOT) 35 U/L (15-37) Alanine Aminotransferase (ALT/SGPT) 42 U/L (12-78) Alkaline Phosphatase 223 U/L (46-116) H Total Protein 7.8 G/DL (6.4-8.2) Albumin 3.4 G/DL (3.4-5.0) White Blood Count 6.8 K/UL (4.8-10.8) Red Blood Count 3.62 M/UL (4.20-5.40) L Hemoglobin 9.0 G/DL (12.0-16.0) L Hematocrit 28.6 % (37.0-47.0) L Mean Corpuscular Volume 79 FL (80-99) L Mean Corpuscular Hemoglobin 24.7 PG (27.0-31.0) L Mean Corpuscular Hemoglobin Concent 31.4 G/DL (32.0-36.0) L Red Cell Distribution Width 19.6 % (11.6-14.8) H Platelet Count 114 K/UL (150-450) L Mean Platelet Volume 6.6 FL (6.5-10.1) Neutrophils (%) (Auto) 52.4 % (45.0-75.0) Lymphocytes (%) (Auto) 32.2 % (20.0-45.0) Monocytes (%) (Auto) 7.9 % (1.0-10.0) Eosinophils (%) (Auto) 6.2 % (0.0-3.0) H Basophils (%) (Auto) 1.2 % (0.0-2.0) Plan Problems: (1) COVID-19 virus infection Assessment & Plan: positive on admission now negative (2) Bleeding from dialysis shunt Assessment & Plan: right upper arm fistula with thrill and proximal pulse dressings saturated but no active bleeding okay to use (3) Bacteremia Assessment & Plan: 64-year-old female with bacteremia currently admitted for some time [facility] has been on IV antibiotics per infectious disease and has had multiple peripheral lines in the past PICC line's which she is removed. She recently had a PICC line placed in the left upper arm approximately 03/19 which she now removed when she was agitated. She has been removing these lines for some time now and is not amenable to restraints or cognitive resuscitation. She currently is without IV access. Given her history and current condition and agitation appreciate psych input and medications. Unfortunately I do not believe she is safe for central line placement for 2 reasons 1 day very difficult to place central line in agitated state as she is not amenable to one being placed to she will likely remove this line immediately. I spoke with nephrology and ID and we have come up with a plan to keep patient on oral medications and for antibiotics we will switch to vancomycin which will get given with her dialysis which she is and has been tolerating. Will follow along if any changes will plan for insertion will attempt peripheral first before central. Okay to be without line for now. Thank you allowing me to participate patient's care Plan for white blood cell study PICC line placement will monitor Hold central line if emergency only Exam is somewhat limited, as patient was unable to follow commands and hold still. Normal liver, spleen, and bone marrow activity is demonstrated. No abnormal activity is demonstrated. Specifically, no abnormal activity is seen in the upper right arm to suggest infection of the AV fistula. Impression: Somewhat limited exam, as described. No definite abnormal focal tracer accumulation to suggest active infection demonstrated DAILY ESTIMATED NEEDS: Needs based on obesity, pulmonary, HD, wound 78kg abw 20-25 kcals/kg [id number] total kcals 1.25-1.8 g protein/kg 98-140 g total protein per MD, pt on HD NUTRITION DIAGNOSIS: * Swallowing difficulty R/T respiratory status as evidenced by pt orally intubated, now s/p extubation, s/p pulling out NGT, now on pureed moist texture w/ NTL. * Altered nutrition related lab values R/T ESRD as evidenced by elev creat (9.0), elev BNP (>21941->[id number]), elev phos (6.0-> wnl->5.5-> wnl). CURRENT DIET:Renal, pureed moist w/ NTL + Nepro BID PO DIET RECOMMENDATIONS: RENAL + CCHO MED/ texture per SHEET TURNER ADDITIONAL RECOMMENDATIONS: 1) Calibrated bedscale wt for accurate CBW- daily wts for ESRD dx wts in the 210's vs 240's a few week ago 2) Monitor BGs closely, for hypoglycemia h/o frequent hypoglycemia during prev admissions 3) Monitor PO intake closely: appears to be improved at this time -> monitor need to decrease Nepro HPN 4) Add Nephrovite x 1 for skin integrity Nestor Dyson April 01, 2020 18:18
--- NOTE | 2020-04-02 10:14 | Discharge Summary ---
Discharge Summary Discharge Summary _ DATE OF ADMISSION: 02/20/2020 DATE OF DISCHARGE: 04/01/2020 DISCHARGED BY: REASON FOR ADMISSION: 64 years old female, resident of [facility], with past medical history of hypertension, congestive heart failure, pacemaker, COPD, diabetes mellitus, end-stage renal disease, on hemodialysis, was sent for evaluation due to fever , hypoxia , and altered mental status Upon evaluation patient was febrile with temperature 102.3 , and hypoxic with pulse oximetry 82% on room air. Chest x-ray demonstrated patchy bilateral airspace opacities, right greater than left. Central pulmonary vascular prominence. Laboratory work-up revealed lymphopenia, thrombocytopenia ,elevated CRP. Patient was orally intubated in emergency department. Patient was swabbed for COVID-19 Patient subsequently admitted to ICU for further management. CONSULTANTS: tour conductor Dr. Reyna pulmonary Dr. Murillo ID specialist Dr. Long GI specialist Dr. Garcia oil producer Dr. Hunter surgery Dr. Dyson psychiatrist Dr. Lawrence HOSPITAL COURSE: Patient admitted to ICU. SARS-CoV-2 by PCR on 02/19 was detected. Patient remained in isolation. Ventilator support and pulmonary toilet provided. Patient was on empiric antibiotic as per ID specialist recommendation. Patient was followed -up with chest x-ray and ABG. Initial blood cultures were negative. Urine culture revealed Candice. Influenza swab was negative. Sputum culture was negative. Afterwards patient demonstrated persistent bacteremia with Staph epidermidis and VRE despite prior 6 weeks of treatment . Last blood culture on 03/24 were negative Bacteremia of this source was highly suspicious for endovascular source : AV fistula infection or endocarditis. SARS-CoV-2 by PCR on 03/11 was negative, on was positive, then she had two negative results on 03/22 and 03/24. Isolation was discontinued. Patient self extubated. Supplemental oxygen provided and titrated to keep pulse oximetry above 92%. Pulmonary hygiene provided. ECHO from outside facility did not reveal any evidence of vegetation. Echocardiogram was done here on 03/24 and showed no evidence of vegetation. No valve regurgitation. Patient remained afebrile. Cotton Opener felt that patient remained at high risk for CLAY and will require intubation for this procedure. Second tour conductor consulted for need for the CLAY, who concluded that there was no need for TEEat this time, given that last blood culture were negative, and infection was well controlled with antibitoics. WBC scan for evaluation of AV fistula was done, and showed no definite abnormal focal tracer accumulation to suggest active infection. ID specialist recommended continue total 4 to 6 weeks of vancomycin via AV fistula during hemodialysis days. Patient undergone treatment with Plaquenil and azithromycin for 5 days. QT interval was closely monitored, no cardiotoxicity. Aspiration precaution maintained. Diet started as per speech therapist recommendation. Hemodialysis provided as per oil producer with close monitoring of volumes and cardiorenal parameters. Electrolyte corrected as needed. DVT and GI prophylaxis provided. Hemoglobin and hematocrit were closely monitored with goal to keep hemoglobin above 7. Patient is a Jehovah witness and no transfusion permitted for her due to restoration beliefs. Stool for occult blood was negative. Last hemoglobin 9 , hematocrit 28.6. No need for GI procedure at this time , as per GI specialist. Psychiatric medication regimen was optimized as per psychiatrist . Cognitive behavioral therapy provided Patient clinically stabilized and was ready [facility] for [facility] of care. FINAL DIAGNOSES: Confirmed COVID-19 pneumonia Acute respiratory failure requiring intubation (secondary to COVID-19 infection ), status post self extubation Proteus bacteremia, status post treatment Persistent/recurrent Staph epidermidis and VRE bacteremia History of positive SCON blood culture, persistent, recurrent End-stage renal disease, on hemodialysis Diabetes mellitus Hypertension Hypercholesterolemia Pacemaker Presybeterian Obesity hypoventilation syndrome Anemia History of ETOH and cocaine abuse in the past Dysphagia Major depressive disorder , mild , recurrent with psychotic features Bilateral blindness Altered mental status DISCHARGE MEDICATIONS: List of medication was sent to accepting facility DISCHARGE INSTRUCTIONS: Patient was [facility] to the [facility] facility. Follow up with medical doctor at the facility. Chastity Velasco NP April 02, 2020 10:12
== END 2020-04-01 18:24 | DRG 870 ==
LOC: EDBD 08:13 → EMR 08:30 → EDBEDREQ 10:08 → ICU 10:21 → UNDODISIN 02-24 21:12 → 2E 03-08 23:14 → 4E 03-10 23:03
PROC: 0BH18EZ Insertion of Endotracheal Airway into Trachea, Via Natural or Artificial Opening Endoscopic (ICD-10-PCS; principal; 2020-02-20)
PROC: 5A1D70Z Performance of Urinary Filtration, Intermittent, Less than 6 Hours Per Day (ICD-10-PCS; principal; 2020-02-20)
PROC: 5A1955Z Respiratory Ventilation, Greater than 96 Consecutive Hours (ICD-10-PCS; principal; 2020-02-20)
PROC: B54NZZA Ultrasonography of Left Upper Extremity Veins, Guidance (ICD-10-PCS; 2020-03-01)
PROC: 05H433Z Insertion of Infusion Device into Left Innominate Vein, Percutaneous Approach (ICD-10-PCS; 2020-03-01)
PROC: B547ZZA Ultrasonography of Left Subclavian Vein, Guidance (ICD-10-PCS; 2020-03-08)
PROC: 05H633Z Insertion of Infusion Device into Left Subclavian Vein, Percutaneous Approach (ICD-10-PCS; 2020-03-08)
PROC: 02HV33Z Insertion of Infusion Device into Superior Vena Cava, Percutaneous Approach (ICD-10-PCS; 2020-03-15)
PROC: B518ZZA Fluoroscopy of Superior Vena Cava, Guidance (ICD-10-PCS; 2020-03-15)
PROC: 05H833Z Insertion of Infusion Device into Left Axillary Vein, Percutaneous Approach (ICD-10-PCS; 2020-03-19)
PROC: B54NZZA Ultrasonography of Left Upper Extremity Veins, Guidance (ICD-10-PCS; 2020-03-19)
DX: A41.89 Other specified sepsis (principal); U07.1 COVID-19; N18.6 End stage renal disease; J12.89 Other viral pneumonia; J80 Acute respiratory distress syndrome; I13.2 Hypertensive heart and chronic kidney disease with heart failure and with stage 5 chronic kidney disease, or end stage renal disease; E66.2 Morbid (severe) obesity with alveolar hypoventilation; F20.0 Paranoid schizophrenia; J44.0 Chronic obstructive pulmonary disease with (acute) lower respiratory infection; Z99.11 Dependence on respirator [ventilator] status; T82.838A Hemorrhage due to vascular prosthetic devices, implants and grafts, initial encounter; E11.22 Type 2 diabetes mellitus with diabetic chronic kidney disease; Z99.2 Dependence on renal dialysis; I50.9 Heart failure, unspecified; E11.42 Type 2 diabetes mellitus with diabetic polyneuropathy; Z68.33 Body mass index [BMI] 33.0-33.9, adult; D63.1 Anemia in chronic kidney disease; D69.6 Thrombocytopenia, unspecified; D72.810 Lymphocytopenia; Z95.0 Presence of cardiac pacemaker; H54.8 Legal blindness, as defined in USA; I25.10 Atherosclerotic heart disease of native coronary artery without angina pectoris; Z95.5 Presence of coronary angioplasty implant and graft; R13.10 Dysphagia, unspecified; R40.0 Somnolence; K29.70 Gastritis, unspecified, without bleeding; K44.9 Diaphragmatic hernia without obstruction or gangrene; R19.7 Diarrhea, unspecified
CPT/HCPCS: 31500; 36415; 36569; 36600; 71045; 71260; 74018; 74177; 76937; 80048; 80053; 80061; 80076; 80150; 80202; 81003; 82248; 82270; 82550; 82553; 82803; 82962; 82977; 83036; 83605; 83615; 83735; 83880; 84100; 84443; 84484; 84550; 85007; 85025; 85379; 85610; 85651; 85730; 86140; 86706; 86707; 86710; 86803; 87040; 87045; 87070; 87081; 87086; 87181; 87205; 87324; 87635; 92610; 93005; 93306; 94002; 94003; 94664; 96361; 96365; 96375; 99291; A9570; J1815; J7030